=== PATIENT | male | born 1980 | race Caucasian/White ===

== ENCOUNTER 2022-10-21 11:15 | Outpatient (OUT) | payer MEDICARE, MEDICAID, SELFPAY ==
[2022-10-21 12:48] LABS: Alanine Aminotransferase 87 U/L (16-63); Albumin Globulin Ratio 0.9; Albumin Level 3.8 g/dL (3.4-5.0); Alkaline Phosphatase 51 U/L (46-116); Aspartate Amino Transferase 67 U/L (15-37); Bilirubin Direct 0.1 mg/dL (0.0-0.2); Bilirubin Total 0.4 mg/dL (0.2-1.0); Globulin 4.1 g/dL; Total Protein 7.9 g/dL (6.4-8.2)
[2022-10-21 12:56] LABS: Ammonia 46 umol/L (11-32)
== END 2022-10-21 11:16 | disposition home or self-care (01) ==
PROVIDERS: PCP Family Medicine; Visit Provider Family Medicine
DX: R41.82 Altered mental status, unspecified (principal)
CPT/HCPCS: 36415; 80076; 82140

== ENCOUNTER 2022-10-27 20:37 | Emergency (ER) | payer MEDICARE, MEDICAID, SELFPAY ==
[2022-10-27 20:38] VITALS: BP 139/75; PULSE 91; RESP 16; TEMP 36.4; O2SAT 95; BMI 25.4
--- NOTE | 2022-10-27 20:46 | CT_ITS ---
[address] [address] Patient Name: FRANCOIS LOPEZ MRN: [id number] date: 1980 Sex: M Assigned Patient Location: ER Current Patient Location: ER Accession/Order Number: [id number] Exam Date: 10/27/2022 21:00 Report Date: 10/27/2022 21:39 At the request of: DENA JENKINS Procedure: CT facial bones wo con EXAM: CT facial bones wo con TECHNIQUE: Axial CT images were obtained through the facial bones along with sagittal and coronal reformatted images. Dose reduction techniques were achieved by using automated exposure control and/or adjustment of mA and/or kV according to patient size and/or use of iterative reconstruction technique. HISTORY: fall COMPARISON: None. FINDINGS: Fracture: None Orbits: Globes are intact. Extraocular musculature is unremarkable and symmetric. There is no retrobulbar hematoma. Soft tissues: unremarkable. Sinuses: Clear. CT/CT facial bones wo con IMPRESSION: No facial bone fracture Electronically authenticated by: FRANK BARRIGA Date: 10/27/2022 21:39
--- NOTE | 2022-10-27 20:46 | CT_ITS ---
[address] [address] Patient Name: FRANCOIS LOPEZ MRN: [id number] date: 1980 Sex: M Assigned Patient Location: ER Current Patient Location: Accession/Order Number: [id number] Exam Date: 10/27/2022 21:00 Report Date: 10/27/2022 21:41 At the request of: DENA JENKINS Procedure: CT head/brain wo con EXAMINATION: CT head/brain wo con TECHNIQUE: Axial CT images were obtained through the brain. Sagittal and coronal reformatted images were also obtained. Dose reduction techniques were achieved by using automated exposure control and/or adjustment of mA and/or kV according to patient size and/or use of iterative reconstruction technique. HISTORY: Fall COMPARISON: None. FINDINGS: Intracranial Bleed: No evidence for acute intracranial bleed. Intracranial Mass: No evidence for mass lesion. No mass effect or midline shift. Extra-axial spaces: The ventricular system is normal caliber. White/Araiza Matter: No acute cortical infarct. No significant white matter abnormality. Skull/Scalp: No evidence for skull fracture or lesion. Orbits and sinuses: The orbits appear unremarkable. The visualized paranasal sinuses are clear. CT/CT head/brain wo con IMPRESSION: No acute intracranial pathology. Electronically authenticated by: FRANK BARRIGA Date: 10/27/2022 21:41
--- NOTE | 2022-10-27 20:46 | CT_ITS ---
[address] [address] Patient Name: FRANCOIS LOPEZ MRN: [id number] date: 1980 Sex: M Assigned Patient Location: ER Current Patient Location: [facility] Accession/Order Number: [id number] Exam Date: 10/27/2022 21:00 Report Date: 10/27/2022 21:36 At the request of: DENA JENKINS Procedure: CT cervical spine wo con EXAMINATION: CT cervical spine wo con TECHNIQUE: Axial CT images were obtained through the cervical spine. Sagittal and coronal reformatted images were also obtained. Dose reduction techniques were achieved by using automated exposure control and/or adjustment of mA and/or kV according to patient size and/or use of iterative reconstruction technique. HISTORY: fall. COMPARISON: None. FINDINGS: Bones: No fracture Alignment: The alignment is anatomic. No acute subluxation. Arthritic changes: No significant arthritic changes Disc spaces: No gross disc herniation given limitation of CT scan. Soft tissues: No soft tissue mass or large hematoma. Evaluation limited by motion artifact. CT/CT cervical spine wo con IMPRESSION: No acute fracture or subluxation. Electronically authenticated by: FRANK BARRIGA Date: 10/27/2022 21:36
--- NOTE | 2022-10-27 20:48 | ED.FALL1 ---
HPI - Fall General Chief Complaint: Wound/Laceration Stated Complaint: LACERATION FROM FALL Time Seen by Provider: 10/27/22 20:46 History of Present Illness HPI Narrative: patient is a 42-year-old male with severe developmental delay and mental retardation who presents to the emergency department by ambulance from the [facility] center where he is a resident for the evaluation of an injury to the head and face after a fall out of his shower chair just prior to arrival. Patient is not able to provide any aspects of the history. The [facility] where he is a resident reported that the patient fell out of his shower chair and hit his face. He had no loss of consciousness. He is at his mental baseline at this time. Related Data Home Medications Medication Instructions Recorded Confirmed acetaminophen 325 mg capsule 650 mg PO Q4H PRN fever or pain 10/27/22 10/27/22 acetaminophen 650 mg rectal 650 mg LA Q4H PRN fever 10/27/22 10/27/22 suppository alendronate 70 mg tablet 70 mg PO .COMPLEX 10/27/22 10/27/22 atorvastatin 10 mg tablet 10 mg PO DAILY 10/27/22 10/27/22 budesonide 0.5 mg/2 mL suspension 0.5 mg inhalation BID 10/27/22 10/27/22 for nebulization cholecalciferol (vitamin D3) 125 125 mcg PO DAILY 10/27/22 10/27/22 mcg (5,000 unit) capsule clobazam 10 mg tablet 10 mg PO BID 10/27/22 10/27/22 clonazepam 0.25 mg disintegrating 0.25 mg translingual Q12H PRN as 10/27/22 10/27/22 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 diazepam 5 mg-7.5 mg-10 mg rectal 5 mg LA .COMPLEX PRN if 3 or more 10/27/22 10/27/22 kit seizures in 2hrs docusate sodium 100 mg tablet (DOK) 100 mg PO DAILY 10/27/22 10/27/22 felbamate 400 mg tablet 400 mg PO TID 10/27/22 10/27/22 fenofibrate nanocrystallized 145 145 mg PO DAILY 10/27/22 10/27/22 mg tablet fluticasone propionate 50 2 spray intranasal DAILY 10/27/22 10/27/22 mcg/actuation nasal spray,suspension furosemide 20 mg tablet 20 mg PO DAILY 10/27/22 10/27/22 glycopyrrolate 1 mg tablet 1 mg PO BID 10/27/22 10/27/22 guaifenesin 400 mg tablet (Chest 400 mg PO BID 10/27/22 10/27/22 Congestion Relief) ipratropium 0.5 mg-albuterol 3 mg 3 ml inhalation TID 10/27/22 10/27/22 (2.5 mg base)/3 mL nebulization soln lactulose 10 gram/15 mL oral 10 g PO TID 10/27/22 10/27/22 solution levetiracetam 500 mg tablet 500 mg PO DAILY 10/27/22 10/27/22 levetiracetam 750 mg tablet 1,500 mg PO BID 10/27/22 10/27/22 levothyroxine 150 mcg tablet 150 mcg PO DAILY 10/27/22 10/27/22 linaclotide 145 mcg capsule 145 mcg PO DAILY 10/27/22 10/27/22 (Linzess) loratadine 10 mg tablet 10 mg PO DAILY 10/27/22 10/27/22 magnesium oxide 400 mg (241.3 mg 400 mg PO DAILY 10/27/22 10/27/22 magnesium) tablet montelukast 10 mg tablet 10 mg PO DAILY 10/27/22 10/27/22 omeprazole 40 mg capsule,delayed 40 mg PO DAILY 10/27/22 10/27/22 release oxcarbazepine 300 mg tablet 300 mg PO BID 10/27/22 10/27/22 oxcarbazepine 600 mg tablet 600 mg PO BID 10/27/22 10/27/22 polyethylene glycol 3350 17 17 g PO DAILY 10/27/22 10/27/22 gram/dose oral powder rifaximin 550 mg tablet (Xifaxan) 550 mg PO BID 10/27/22 10/27/22 sodium chloride-aloe vera nasal 1 spray intranasal TID PRN dry 10/27/22 10/27/22 spray ([place] Saline Gel nasal spray) nasal passages tamsulosin 0.4 mg capsule 0.4 mg PO DAILY 10/27/22 10/27/22 Allergies Allergy/AdvReac Type Severity Reaction Status Date / Time amoxicillin [From Augmentin] Allergy Verified 10/27/22 20:47 clavulanic acid Allergy Verified 10/27/22 20:47 [From Augmentin] Pertussis Vaccines Allergy Verified 10/27/22 20:47 phenytoin [From Dilantin] Allergy Verified 10/27/22 20:47 promethazine [From Phenergan] Allergy Verified 10/27/22 20:47 Review of Systems ROS Status of ROS unobtainable due to medical condition Exam Narrative Exam Narrative: Gen.: Awake, alert, in no distress Head: Normocephalic, small hematomas noted to the forehead, left cheek. No Jenkins sign or raccoon eyes ENT: Moist mucous membranes, no epistaxis from the nose, patient has a 1 cm C-shaped laceration above the vermilion border in his trimmed mustache. There is no deep laceration into the subcutaneous tissue, no large gap of the laceration. No injury noted on the inner aspect of the lip. No injury noted to the teeth. Neck: patient moves his head without difficulty at the neck Respiratory: No respiratory distress, Extremities: Moves extremities equally, no injuries noted Psych: Normal mood and affect Neuro: significantly developmentally delayed, fights exam Skin: Warm, dry, intact Constitutional Vital Signs, click to edit/add: Last Vital Signs Temp 97.5 F L 10/27/22 20:38 Pulse 91 H 10/27/22 20:38 Resp 16 10/27/22 20:38 BP 139/75 H 10/27/22 20:38 Pulse Ox 95 10/27/22 20:38 O2 Del Method Room Air 10/27/22 20:38 Course Vital Signs Vital signs: Vital Signs Temperature 97.5 F L 10/27/22 20:38 Pulse Rate 91 H 10/27/22 20:38 Respiratory Rate 16 10/27/22 20:38 Blood Pressure 139/75 H 10/27/22 20:38 Pulse Oximetry 95 10/27/22 20:38 Oxygen Delivery Method Room Air 10/27/22 20:38 Temperature 97.5 F L 10/27/22 20:38 Pulse Rate 91 H 10/27/22 20:38 Respiratory Rate 16 10/27/22 20:38 Blood Pressure 139/75 H 10/27/22 20:38 Pulse Oximetry 95 10/27/22 20:38 Oxygen Delivery Method Room Air 10/27/22 20:38 MDM - Fall MDM Narrative Medical decision making narrative: laceration was repaired on arrival to the Emergency Room, the patient did try to pull at the sutured area multiple times so we applied socks to his hands while he was in the Emergency Room, bacitracin applied prior to discharge, patient was sent for CTs of the head, C-spine and facial bones. He is resting comfortably on reevaluation at discharge. We are unable to update his tetanus in the Emergency Room as he is ALLERGIC to pertussis vaccines, he has had previous lacerations from falls and the [facility] is aware that we are unable to update his tetanus in the Emergency Room and he can have a tetanus update per his PCP at the [facility] as needed. CTs of the head, facial bones and C-spine are unremarkable. Patient is discharged home for further evaluation per primary care. Medical Records Attestation: I reviewed the patient's medical records. Imaging Data CT scan - head: Attestation: I have reviewed the pertinent imaging results. Radiologist's impression: Procedure: CT head/brain wo con EXAMINATION: CT head/brain wo con TECHNIQUE: Axial CT images were obtained through the brain. Sagittal and coronal reformatted images were also obtained. Dose reduction techniques were achieved by using automated exposure control and/or adjustment of mA and/or kV according to patient size and/or use of iterative reconstruction technique. HISTORY: Fall COMPARISON: None. FINDINGS: Intracranial Bleed: No evidence for acute intracranial bleed. Intracranial Mass: No evidence for mass lesion. No mass effect or midline shift. Extra-axial spaces: The ventricular system is normal caliber. White/Araiza Matter: No acute cortical infarct. No significant white matter abnormality. Skull/Scalp: No evidence for skull fracture or lesion. Orbits and sinuses: The orbits appear unremarkable. The visualized paranasal sinuses are clear. IMPRESSION: No acute intracranial pathology. Electronically authenticated by: FRANK BARRIGA Date: 10/27/2022 21:41 CT c-spine: Attestation: I have reviewed the pertinent imaging results. Radiologist's impression: Procedure: CT cervical spine wo con EXAMINATION: CT cervical spine wo con TECHNIQUE: Axial CT images were obtained through the cervical spine. Sagittal and coronal reformatted images were also obtained. Dose reduction techniques were achieved by using automated exposure control and/or adjustment of mA and/or kV according to patient size and/or use of iterative reconstruction technique. HISTORY: fall. COMPARISON: None. FINDINGS: Bones: No fracture Alignment: The alignment is anatomic. No acute subluxation. Arthritic changes: No significant arthritic changes Disc spaces: No gross disc herniation given limitation of CT scan. Soft tissues: No soft tissue mass or large hematoma. Evaluation limited by motion artifact. IMPRESSION: No acute fracture or subluxation. CT facial bones: Attestation: I have reviewed the pertinent imaging results. Radiologist's impression: Procedure: CT facial bones wo con EXAM: CT facial bones wo con TECHNIQUE: Axial CT images were obtained through the facial bones along with sagittal and coronal reformatted images. Dose reduction techniques were achieved by using automated exposure control and/or adjustment of mA and/or kV according to patient size and/or use of iterative reconstruction technique. HISTORY: fall COMPARISON: None. FINDINGS: Fracture: None Orbits: Globes are intact. Extraocular musculature is unremarkable and symmetric. There is no retrobulbar hematoma. Soft tissues: unremarkable. Sinuses: Clear. IMPRESSION: No facial bone fracture Electronically authenticated by: FRANK BARRIGA Date: 10/27/2022 21:39 Discharge Plan Discharge Chief Complaint: Wound/Laceration Clinical Impression: Laceration of lip, Contusion of face, Head injury Patient Disposition: Home, Self-Care Time of Disposition Decision: 21:46 Condition: Good Prescriptions / Home Meds: No Action alendronate 70 mg tablet 70 mg PO .COMPLEX Rx Instructions: 70 mg orally Every ; atorvastatin 10 mg tablet 10 mg PO DAILY budesonide 0.5 mg/2 mL suspension for nebulization 0.5 mg inhalation BID clobazam 10 mg tablet 10 mg PO BID docusate sodium [DOK] 100 mg tablet 100 mg PO DAILY felbamate 400 mg tablet 400 mg PO TID fenofibrate nanocrystallized 145 mg tablet 145 mg PO DAILY fluticasone propionate 50 mcg/actuation spray,suspension 2 spray INTRANASAL DAILY furosemide 20 mg tablet 20 mg PO DAILY glycopyrrolate 1 mg tablet 1 mg PO BID guaifenesin [Chest Congestion Relief] 400 mg tablet 400 mg PO BID ipratropium-albuterol 0.5 mg-3 mg(2.5 mg base)/3 mL solution for nebulization 3 ml INHALATION TID lactulose 10 gram/15 mL solution 10 g PO TID levetiracetam 500 mg tablet 500 mg PO DAILY Rx Instructions: take one tablet by mouth daily at bedtime with 750mg tablets to equal 2000mg levetiracetam 750 mg tablet 1,500 mg PO BID levothyroxine 150 mcg tablet 150 mcg PO DAILY Linzess 145 mcg capsule 145 mcg PO DAILY loratadine 10 mg tablet 10 mg PO DAILY magnesium oxide 400 mg (241.3 mg magnesium) tablet 400 mg PO DAILY montelukast 10 mg tablet 10 mg PO DAILY omeprazole 40 mg capsule,delayed release(DR/EC) 40 mg PO DAILY oxcarbazepine 300 mg tablet 300 mg PO BID oxcarbazepine 600 mg tablet 600 mg PO BID polyethylene glycol 3350 17 gram/dose powder 17 g PO DAILY tamsulosin 0.4 mg capsule 0.4 mg PO DAILY cholecalciferol (vitamin D3) 125 mcg (5,000 unit) capsule 125 mcg PO DAILY Xifaxan 550 mg tablet 550 mg PO BID [place] Saline Gel [place],Non-Aerosol 1 spray intranasal TID PRN (Reason: dry nasal passages) acetaminophen 325 mg capsule 650 mg PO Q4H PRN (Reason: fever or pain) acetaminophen 650 mg suppository 650 mg LA Q4H PRN (Reason: fever) clonazepam 0.25 mg tablet,disintegrating 0.25 mg translingual Q12H PRN (Reason: as needed for cluster of 5 seizures) diazepam 5-7.5-10 mg kit 5 mg LA .COMPLEX PRN (Reason: if 3 or more seizures in 2hrs) Rx Instructions: 5 mg rectally may repeat in 2hrs as needed PRN; Instructions: Head Injury (ED), Care For Your Absorbable Stitches (ED), Facial Contusion (ED) Stand Alone Forms: Portal Instructions Referrals: ERIKA VENTURA DO [Primary Care Provider] - 1 week Discharge Date/Time: 07/11/23 22:11 Procedures ED Procedure Instructions Procedures Procedures: Laceration repair: Done under sterile conditions. The use of Shur-Clens prep the area. The wound was irrigated copiously with normal saline. The wound was explored there was no evidence of foreign material. The laceration was approximated with 5-0 fast absorbing suture, one suture was placed to tack the laceration together, there is no deep laceration into the subcutaneous tissue noted. Patient tolerated the procedure well. The patient was neurovascularly intact post. the patient had bacitracin applied to the laceration
--- NOTE | 2022-10-27 20:52 | PC.NURSE ---
laceration cleansed at bedside and 1 suture placed to top lip by PA. socks placed on bilat hands d/t pt trying to pull at new suture and TV turned on for distracting. goose egg/bruise to top front of forehead and under left eye, Pt to go to CT
[2022-10-27] MEDS: BACITRACIN 0.9 GM PACKET 1 PACKET TOPICAL (22:08)
== END 2022-10-27 22:11 | disposition home or self-care (01) ==
PROVIDERS: Emergency Provider Emergency Medicine; PCP Family Medicine
DX: S01.511A Laceration without foreign body of lip, initial encounter (principal); S00.83XA Contusion of other part of head, initial encounter; S09.90XA Unspecified injury of head, initial encounter; W18.2XXA Fall in (into) shower or empty bathtub, initial encounter; F79 Unspecified intellectual disabilities; Z79.899 Other long term (current) drug therapy; Z79.890 Hormone replacement therapy
CPT/HCPCS: 12011; 70450; 70486; 72125; 99284

== ENCOUNTER 2022-11-26 09:04 | Outpatient (OUT) | payer MEDICARE, MEDICAID, SELFPAY ==
--- NOTE | 2022-11-26 09:15 | US_ITS ---
[address] [address] Patient Name: FRANCOIS LOPEZ MRN: [id number] date: 1980 Sex: M Assigned Patient Location: Current Patient Location: US Accession/Order Number: [id number] Exam Date: 11/26/2022 09:30 Report Date: 11/26/2022 14:03 At the request of: ERIKA VENTURA Procedure: US scrotum SCROTAL ULTRASOUND: 11/26/2022 10:58 AM PDT HISTORY: Testicle retraction, urinary incontinence. TECHNIQUE: Real-time sonography through the scrotum were performed. Color and spectral Doppler waveform analysis were used to evaluate vascularity of scrotal contents. Arterial blood inflow and venous blood outflow were evaluated. COMPARISON: Scrotal ultrasound 11/13/[address] abdomen/pelvis 09/22/2021. FINDINGS: RIGHT SCROTUM: RIGHT TESTICLE: The right testicle appears to be located within the right scrotum. Echogenicity: Homogeneous echotexture. No focal solid lesion. Measurements: 3.3 x 1.8 x 1.9 cm. Volume: 5.8 mL. Size: Normal. Hydrocele: Small. Varicocele: No varicocele. Testicular vascular exam: Color Doppler and pulse Doppler exam demonstrates normal arterial blood inflow and venous outflow waveforms. Symmetric with opposite testis. RIGHT EPIDIDYMIS: Normal in size and position. Color Doppler is normal. Small testicular appendage present. LEFT SCROTUM: LEFT TESTICLE: Echogenicity: Homogeneous echotexture. No focal solid lesion. Measurements: 2.5 x 1.3 x 2.3 cm. Volume: 4 mL. Size: Normal. Hydrocele: No hydrocele. Varicocele: No varicocele. Testicular vascular exam: Color Doppler and pulse Doppler exam demonstrates normal arterial blood inflow and venous outflow waveforms. Symmetric with opposite testis. LEFT EPIDIDYMIS: Normal in size and position. Color Doppler is normal. SCROTAL WALL: Normal. US/US scrotum IMPRESSION: 1. The right testicle appears to be located in the right scrotum. There is a small right-sided hydrocele. 2. The left testicle is within normal limits. Electronically authenticated by: BRITTANIE MELLO Date: 11/26/2022 14:03
== END 2022-11-26 09:05 | disposition home or self-care (01) ==
LOC: US 09:04
PROVIDERS: PCP Family Medicine; Visit Provider Family Medicine
DX: R32 Unspecified urinary incontinence (principal); Q55.22 Retractile testis
CPT/HCPCS: 76870

== ENCOUNTER 2022-12-18 07:23 | Outpatient (OUT) | payer MEDICARE, MEDICAID, SELFPAY ==
[2022-12-18 07:59] LABS: Ammonia 20 umol/L (11-32)
[2022-12-18 08:58] LABS: Alanine Aminotransferase 56 U/L (16-63); Albumin Globulin Ratio 0.9; Albumin Level 3.5 g/dL (3.4-5.0); Alkaline Phosphatase 54 U/L (46-116); Aspartate Amino Transferase 44 U/L (15-37); Bilirubin Direct 0.1 mg/dL (0.0-0.2); Bilirubin Total 0.4 mg/dL (0.2-1.0); Globulin 3.7 g/dL; Total Protein 7.2 g/dL (6.4-8.2)
== END 2022-12-18 07:24 | disposition home or self-care (01) ==
LOC: LAB 07:23
PROVIDERS: PCP Family Medicine; Visit Provider Family Medicine
DX: G40.909 Epilepsy, unspecified, not intractable, without status epilepticus (principal); Z79.899 Other long term (current) drug therapy; K76.82 Hepatic encephalopathy
CPT/HCPCS: 36415; 80076; 82140

== ENCOUNTER 2023-02-11 04:07 | Inpatient (IN) | payer MEDICARE, MEDICAID, SELFPAY ==
[2023-02-11] VITALS (27 sets, daily range): BP systolic 86–132; BP diastolic 51–69; PULSE 90–105; RESP 18–27; TEMP 36.5–38.6; O2SAT 87–99; BMI 22.2
[2023-02-11] MEDS: 0.9 % SODIUM CHLORIDE 1,000 ML 1000 ML IV (04:10)
--- NOTE | 2023-02-11 04:17 | ECG_ITS ---
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
--- NOTE | 2023-02-11 04:17 | XR_ITS ---
The [address] [address] Patient Name: FRANCOIS LOPEZ MRN: [id number] date: 1980 Sex: M Assigned Patient Location: ER Current Patient Location: ER Accession/Order Number: [id number] Exam Date: 02/11/2023 05:00 Report Date: 02/11/2023 06:13 At the request of: DREW MARKER Procedure: XR chest 1V EXAM: XR chest 1V HISTORY: SOB COMPARISON: Chest radiograph dated 08/04/2022. TECHNIQUE: One view of the chest was obtained. FINDINGS: A left chest neurostimulator device is noted with the leads extending off the cranial aspect of the study. The cardiac silhouette is stable in size. There are hypoventilatory changes. There are airspace opacities in the mid to lower left lung and at the right lung base. There is no significant pneumothorax or pleural effusion. No acute osseous abnormality is seen. XR/XR chest 1V IMPRESSION: 1. Airspace opacities in the mid to lower left lung and at the right lung base could represent atelectasis, aspiration changes, and/or pneumonia. Electronically authenticated by: Elliott HUNTER Date: 02/11/2023 06:13
--- NOTE | 2023-02-11 04:32 | ED.GENADUL1 ---
HPI - General Adult General Chief complaint: Seizure Stated complaint: OTHER Time Seen by Provider: 02/11/23 04:17 Source: caregiver and other Source information: Report was called from [facility] nurse as well as EMS report Mode of arrival: ambulance Limitations: no limitations and physical limitation Limitations comment: Hx MRDD with severe intellectual disability History of Present Illness HPI narrative: This 43-year-old male with a history of MR DD and seizure disorder is brought to the emergency department from [facility] for evaluation of a fever and several seizures since last night. The RN who covers the facility gave report to the nurses in this emergency department stating that he had several seizures and was found to have a fever. She did a [facility] test at the [facility] that was positive. She stated that his pulse ox was in the 80s. He does not typically have any oxygen requirements. He was given rectal tylenol prior to arrival. There was no noted vomiting or diarrhea reported by the [facility] RN. Related Data Home Medications Medication Instructions Recorded Confirmed acetaminophen 325 mg capsule 650 mg PO Q4H PRN fever or pain 10/27/22 02/11/23 acetaminophen 650 mg rectal 650 mg WI Q4H PRN fever 10/27/22 02/11/23 suppository alendronate 70 mg tablet 70 mg PO .COMPLEX 10/27/22 02/11/23 atorvastatin 10 mg tablet 10 mg PO DAILY 10/27/22 02/11/23 budesonide 0.5 mg/2 mL suspension 0.5 mg inhalation BID 10/27/22 02/11/23 for nebulization cholecalciferol (vitamin D3) 125 125 mcg PO DAILY 10/27/22 02/11/23 mcg (5,000 unit) capsule clobazam 10 mg tablet 10 mg PO BID 10/27/22 02/11/23 clonazepam 0.25 mg disintegrating 0.25 mg translingual Q12H PRN as 10/27/22 02/11/23 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 diazepam 5 mg-7.5 mg-10 mg rectal 5 mg WI .COMPLEX PRN if 3 or more 10/27/22 02/11/23 kit seizures in 2hrs docusate sodium 100 mg tablet (DOK) 100 mg PO DAILY 10/27/22 02/11/23 felbamate 400 mg tablet 400 mg PO TID 10/27/22 02/11/23 fenofibrate nanocrystallized 145 145 mg PO DAILY 10/27/22 02/11/23 mg tablet fluticasone propionate 50 2 spray intranasal DAILY 10/27/22 02/11/23 mcg/actuation nasal spray,suspension furosemide 20 mg tablet 20 mg PO DAILY 10/27/22 02/11/23 glycopyrrolate 1 mg tablet 1 mg PO BID 10/27/22 02/11/23 guaifenesin 400 mg tablet (Chest 400 mg PO BID 10/27/22 02/11/23 Congestion Relief) ipratropium 0.5 mg-albuterol 3 mg 3 ml inhalation TID 10/27/22 02/11/23 (2.5 mg base)/3 mL nebulization soln lactulose 10 gram/15 mL oral 10 g PO TID 10/27/22 02/11/23 solution levetiracetam 500 mg tablet 500 mg PO DAILY 10/27/22 02/11/23 levetiracetam 750 mg tablet 1,500 mg PO BID 10/27/22 02/11/23 levothyroxine 150 mcg tablet 150 mcg PO DAILY 10/27/22 02/11/23 linaclotide 145 mcg capsule 145 mcg PO DAILY 10/27/22 02/11/23 (Linzess) loratadine 10 mg tablet 10 mg PO DAILY 10/27/22 02/11/23 magnesium oxide 400 mg (241.3 mg 400 mg PO DAILY 10/27/22 02/11/23 magnesium) tablet montelukast 10 mg tablet 10 mg PO DAILY 10/27/22 02/11/23 omeprazole 40 mg capsule,delayed 40 mg PO DAILY 10/27/22 02/11/23 release oxcarbazepine 300 mg tablet 300 mg PO BID 10/27/22 02/11/23 oxcarbazepine 600 mg tablet 600 mg PO BID 10/27/22 02/11/23 polyethylene glycol 3350 17 17 g PO DAILY 10/27/22 02/11/23 gram/dose oral powder rifaximin 550 mg tablet (Xifaxan) 550 mg PO BID 10/27/22 02/11/23 sodium chloride-aloe vera nasal 1 spray intranasal TID PRN dry 10/27/22 02/11/23 spray ([place] Saline Gel nasal spray) nasal passages tamsulosin 0.4 mg capsule 0.4 mg PO DAILY 10/27/22 02/11/23 Allergies Allergy/AdvReac Type Severity Reaction Status Date / Time amoxicillin [From Augmentin] Allergy Verified 10/27/22 20:47 clavulanic acid Allergy Verified 10/27/22 20:47 [From Augmentin] Pertussis Vaccines Allergy Verified 10/27/22 20:47 phenytoin [From Dilantin] Allergy Verified 10/27/22 20:47 promethazine [From Phenergan] Allergy Verified 10/27/22 20:47 Review of Systems ROS Status of ROS 10 or more systems reviewed and unremarkable except as noted in history and below [facility] Social History Smoking status: Never smoker Exam Narrative Exam Narrative: Nurses note and vital signs reviewed; He is febrile with a temperature of 101, tachycardic with pulse of 105, blood pressure is normal at 102/54, pulse ox was 99 percent on 2 L nasal cannula General: Somnolent, chronically ill-appearing male, he is arousable to verbal stimuli, no respiratory distress, no active vomiting Skin: Warm, dry, no pallor noted. There is no rash noted. Head: Normocephalic, atraumatic Eye: Normal conjunctiva, no drainage, Pupils are equal and reactive Ears, Nose, Mouth, and Throat: oral mucosa is moist. Nares patent. No visible tongue contusion or laceration Cardiovascular: Regular Rate and Rhythm S1S2, tachycardia at 105 bpm on arrival, no murmurs, rubs or gallops appreciated Respiratory: Patient is in no distress, coarse and transmitted breath sounds appreciated, no wheezing or accessory muscle use noted Back: non-tender, no CVA tenderness bilaterally to percussion. GI: Normal bowel sounds, no tenderness to palpation, no masses appreciated. No rebound, guarding, or rigidity noted. Musculoskeletal: No bony defomity noted, generalized muscle wasting noted Neurological: no facial droop, arouses to verbal and tactile stimuli Constitutional Vital Signs, click to edit/add: Last Vital Signs Temp 101 F H 02/11/23 04:06 Pulse 98 H 02/11/23 04:50 Resp 19 02/11/23 04:50 BP 102/54 02/11/23 04:09 Pulse Ox 99 02/11/23 04:50 O2 Del Method Nasal Cannula 02/11/23 04:47 O2 Flow Rate 2 02/11/23 04:47 Course Vital Signs Vital signs: Vital Signs Temperature 101 F H 02/11/23 04:06 Pulse Rate 105 H 02/11/23 04:06 Respiratory Rate 18 02/11/23 04:06 Blood Pressure 102/54 02/11/23 04:06 Pulse Oximetry 95 02/11/23 04:06 Oxygen Delivery Method Room Air 02/11/23 04:06 Temperature 101 F H 02/11/23 04:06 Pulse Rate 98 H 02/11/23 04:50 Respiratory Rate 19 02/11/23 04:50 Blood Pressure 102/54 02/11/23 04:09 Pulse Oximetry 99 02/11/23 04:50 Oxygen Delivery Method Nasal Cannula 02/11/23 04:47 Oxygen Delivery Flow Rate 2 02/11/23 04:47 Medical Decision Making MDM Narrative Medical decision making narrative: This 43-year-old male from a [facility] who has a history of MRDD and seizure disorder as well as multiple other medical diagnoses is transferred from the [facility] to the emergency department for evaluation of fever, 3 seizures last night and Covid positivity. According to the nurse who called report his pulse ox is in the 80s. Upon EMS arrival an IV was established and he was placed on supplemental oxygen with improvement in his oxygenation. I reviewed his medical records, he is on Keppra for his seizures. According to the report he had 3 seizures prior to arrival. Upon arrival he was somnolent but arousable. He was febrile and at that time was not hypoxic however he was receiving supplemental oxygen. He received IV fluids, Toradol and 1 g of Keppra. Routine labs are reviewed. He has a white count of 5.4 and hemoglobin of 10.9. A letter electrolytes are normal with the exception of a potassium of 3.2. He has mild elevation in his liver function tests. EKG done upon arrival was sinus rhythm at 97 beats for minute with no acute changes. He has normal lactic acid of 1.6. Covid testing was positive. He was maintained on supplemental oxygen emergency department and has remained hemodynamically stable. The case was discussed with Dr. Song and he is accepted for admission to [facility]. Medical Records Medical records reviewed: Yes I reviewed the patient's medical records Lab Data Lab results reviewed: Yes I reviewed the patient's lab results Labs: Lab Results 02/11/23 02/11/23 Range/Units 05:00 05:05 WBC 5.4 (4.0-11.0) 10^3/uL RBC 3.43 L (4.70-6.10) 10^6/uL Hgb 10.9 L (14.0-18.0) g/dL Hct 33.0 L (42.0-54.0) % MCV 96.2 H (80.0-94.0) fL MCH 31.8 (25.9-34.0) pg MCHC 33.0 (29.9-35.2) g/dL RDW 13.2 (11.0-15.0) % Plt Count 259 (150-450) 10^3/uL MPV 10.3 (9.5-13.5) fL Neut % (Auto) 79.1 H (43.0-75.0) % Lymph % (Auto) 9.0 L (20.5-60.0) % [place]ountain % (Auto) 10.9 (1.7-12.0) % Eos % (Auto) 0.2 L (0.9-7.0) % Baso % (Auto) 0.6 (0.2-2.0) % Neut # (Auto) 4.3 (1.4-6.5) 10^3/uL Lymph # (Auto) 0.5 L (1.2-3.8) 10^3/uL Fountain # (Auto) 0.6 (0.3-0.8) 10^3/uL Eos # (Auto) 0.0 (0.0-0.7) 10^3/uL Baso # (Auto) 0.0 (0.0-0.1) 10^3/uL Abs Immat Gran (auto) 0.01 (0.00-0.03) 10^3/uL Imm/Tot Granulo (auto) 0.2 (0.0-0.5) % Sodium 141 (136-145) mmol/L Potassium 3.2 L (3.5-5.1) mmol/L Chloride 105 (98-107) mmol/L Carbon Dioxide 28.8 (21.0-32.0) mmol/L Anion Gap 10.4 BUN 13.0 (7.0-18.0) mg/dL Creatinine 0.75 (0.70-1.30) mg/dL Est GFR ( Amer) >60 (>=60) Est GFR (Non-Af Amer) >60 (>=60) BUN/Creatinine Ratio 17.3 Glucose 117 H (74-106) mg/dL Lactate 1.6 (0.4-2.0) mmol/L Calcium 8.4 L (8.5-10.1) mg/dL Total Bilirubin 0.4 (0.2-1.0) mg/dL AST 126 H (15-37) U/L ALT 83 H (16-63) U/L Alkaline Phosphatase 38 L (46-116) U/L Total Protein 6.3 L (6.4-8.2) g/dL Albumin 2.9 L (3.4-5.0) g/dL Globulin 3.4 g/dL Albumin/Globulin Ratio 0.9 SARS-CoV-2 (PCR) Positive A (NEGATIVE) ECG Data Attestation: I personally reviewed and interpreted this ECG as follows: (Normal sinus rhythm at 97 beats for minute, normal axis, nonspecific ST changes, no acute ST segment elevation or T-wave inversion) Discharge Plan Discharge Chief Complaint: Seizure Clinical Impression: Epileptic seizure Patient Disposition: Admitted as Observation Time of Disposition Decision: 06:47 Condition: Fair Prescriptions / Home Meds: No Action alendronate 70 mg tablet 70 mg PO .COMPLEX Rx Instructions: 70 mg orally Every ; atorvastatin 10 mg tablet 10 mg PO DAILY budesonide 0.5 mg/2 mL suspension for nebulization 0.5 mg inhalation BID clobazam 10 mg tablet 10 mg PO BID docusate sodium [DOK] 100 mg tablet 100 mg PO DAILY felbamate 400 mg tablet 400 mg PO TID fenofibrate nanocrystallized 145 mg tablet 145 mg PO DAILY fluticasone propionate 50 mcg/actuation spray,suspension 2 spray INTRANASAL DAILY furosemide 20 mg tablet 20 mg PO DAILY glycopyrrolate 1 mg tablet 1 mg PO BID guaifenesin [Chest Congestion Relief] 400 mg tablet 400 mg PO BID ipratropium-albuterol 0.5 mg-3 mg(2.5 mg base)/3 mL solution for nebulization 3 ml INHALATION TID lactulose 10 gram/15 mL solution 10 g PO TID levetiracetam 500 mg tablet 500 mg PO DAILY Rx Instructions: take one tablet by mouth daily at bedtime with 750mg tablets to equal 2000mg levetiracetam 750 mg tablet 1,500 mg PO BID levothyroxine 150 mcg tablet 150 mcg PO DAILY Linzess 145 mcg capsule 145 mcg PO DAILY loratadine 10 mg tablet 10 mg PO DAILY magnesium oxide 400 mg (241.3 mg magnesium) tablet 400 mg PO DAILY montelukast 10 mg tablet 10 mg PO DAILY omeprazole 40 mg capsule,delayed release(DR/EC) 40 mg PO DAILY oxcarbazepine 300 mg tablet 300 mg PO BID oxcarbazepine 600 mg tablet 600 mg PO BID polyethylene glycol 3350 17 gram/dose powder 17 g PO DAILY tamsulosin 0.4 mg capsule 0.4 mg PO DAILY cholecalciferol (vitamin D3) 125 mcg (5,000 unit) capsule 125 mcg PO DAILY Xifaxan 550 mg tablet 550 mg PO BID [place] Saline Gel [place],Non-Aerosol 1 spray intranasal TID PRN (Reason: dry nasal passages) acetaminophen 325 mg capsule 650 mg PO Q4H PRN (Reason: fever or pain) acetaminophen 650 mg suppository 650 mg WI Q4H PRN (Reason: fever) clonazepam 0.25 mg tablet,disintegrating 0.25 mg translingual Q12H PRN (Reason: as needed for cluster of 5 seizures) diazepam 5-7.5-10 mg kit 5 mg WI .COMPLEX PRN (Reason: if 3 or more seizures in 2hrs) Rx Instructions: 5 mg rectally may repeat in 2hrs as needed PRN;
--- NOTE | 2023-02-11 04:38 | PC.NURSE ---
2 L O2 NC initiated per physician verbal order. Oxygen saturation 99% at this time.
--- NOTE | 2023-02-11 04:52 | PC.NURSE ---
Pt presents to ER for fever and increased seizure activity from [facility] Pt report was called from the nurse at [facility] Per [facility] nurse pt had multiple seizures between 10pm and 2am. At 3am staff called in the nurse who assessed pt and found him to be febrile (>101), congested and hypoxic Pt was brought in by EMS with a 20g in the left wrist, fluids running at this time Pt has a history of seizure disorders as well as severe intellectual disability. Pt is not continent, a condom cath was applied to attempt to collect urine sample at this time Pt tyically lively and speaking to staff Pt at this time is hot to the touch, sleeping without arousal, and not speaking to us when aroused
[2023-02-11] MEDS: LEVETIRACETAM 1,000 MG in 0.9 % SODIUM CHLORIDE 100 ML 440 MG IV (05:07)
[2023-02-11] MEDS: KETOROLAC TROMETHAMINE 30 MG/ML VIAL 15 MG IVP (05:08)
[2023-02-11 05:28] LABS: Basophils Percent Auto 0.6 % (0.2-2.0); Eosinophils Percent Auto 0.2 % (0.9-7.0); Hemoglobin 10.9 g/dL (14.0-18.0); Immature Granulocytes Abs Auto 0.01 10^3/uL (0.00-0.03); Immature Granulocytes Pct Auto 0.2 % (0.0-0.5); Lymphocytes Absolute Auto 0.5 10^3/uL (1.2-3.8); Mean Corpuscular Hemoglobin 31.8 pg (25.9-34.0); Mean Corpuscular Volume 96.2 fL (80.0-94.0); Mean Platelet Volume 10.3 fL (9.5-13.5); Monocytes Absolute Auto 0.6 10^3/uL (0.3-0.8); Monocytes Percent Auto 10.9 % (1.7-12.0); Neutrophils Absolute Auto 4.3 10^3/uL (1.4-6.5); Neutrophils Percent Auto 79.1 % (43.0-75.0); Platelet Count 259 10^3/uL (150-450); Red Blood Count 3.43 10^6/uL (4.70-6.10); Red Cell Distribution Width 13.2 % (11.0-15.0); White Blood Count 5.4 10^3/uL (4.0-11.0)
[2023-02-11 05:43] LABS: Alanine Aminotransferase 83 U/L (16-63); Albumin Globulin Ratio 0.9; Albumin Level 2.9 g/dL (3.4-5.0); Alkaline Phosphatase 38 U/L (46-116); Anion Gap 10.4; Aspartate Amino Transferase 126 U/L (15-37); BUN Creatinine Ratio 17.3; Bilirubin Total 0.4 mg/dL (0.2-1.0); Calcium 8.4 mg/dL (8.5-10.1); Carbon Dioxide 28.8 mmol/L (21.0-32.0); Chloride 105 mmol/L (98-107); Estimated GFR (African America >60 (>=60); Estimated GFR (Non-African Ame >60 (>=60); Globulin 3.4 g/dL; Glucose 117 mg/dL (74-106); Potassium 3.2 mmol/L (3.5-5.1); Sodium 141 mmol/L (136-145); Total Protein 6.3 g/dL (6.4-8.2)
[2023-02-11 05:45] LABS: SARS-CoV-2 Ag POSITIVE (NEGATIVE)
[2023-02-11 05:46] LABS: Lactate/Lactic Acid 1.6 mmol/L (0.4-2.0)
[2023-02-11] MEDS: 0.9 % SODIUM CHLORIDE 1,000 ML 125 ML IV (06:08)
--- NOTE | 2023-02-11 08:26 | PC.NURSE ---
Admission process difficult due to pt being non verbal MRDD pt...unable to answer any questions.
--- NOTE | 2023-02-11 08:33 | CM.NOTE ---
Rounding with Dr. Song. Nurse Lucila at bedside checking patient in. Patient is from [facility]. Continue to follow for any anticipated discharge needs. Pt. recently arrived to room from the ER.
[2023-02-11] MEDS: ENOXAPARIN SODIUM 40 MG/0.4 ML SYRINGE SUBQ (09:33)
[2023-02-11] MEDS: DEXAMETHASONE SOD PHOS 4 MG/ML VIAL IV (09:34)
[2023-02-11] MEDS: FLUTICASONE PROPIONATE 50 MCG NASAL SPRAY 2 SPRAY NS (09:34)
[2023-02-11] MEDS: CEFTRIAXONE 1,000 MG in 0.9 % SODIUM CHLORIDE 50 ML 100 MG IV (10:00)
[2023-02-11] MEDS: DOXYCYCLINE HYCLATE 100 MG in 0.9 % SODIUM CHLORIDE 100 ML IV ×2 (10:52→23:03)
--- NOTE | 2023-02-11 11:54 | P.HP_ITS ---
Pt seen and evaluated once up on floor this am Agree with documentation from [facility] unchanged form [facility] H&P: HPI History of Present Illness Chief complaint: Increased seizure activity/fever/COVID+ Narrative: Date/Time of exam: 02/11/23 8939 This is a 43-year-old male patient with a complicated past medical history as noted below including seizure disorder, severe intellectual disability, spastic quadriparesis, Wall with hepatic encephalopathy, among others; who was brought to the ED from his [place] [facility] facility due to increased and recurrent seizures with positive COVID-19 status. Work-up in the ED revealed left mid and lower pneumonia on chest x-ray, hypoxia (87% RA), fever (101), hypotension (86/51), hypokalemia (3.2), and decreased responsiveness. Lactic acid was within normal limits (1.6), his liver enzymes are chronically elevated and within his baseline range. As the patient had increased seizure activity at home he was given an IV loading dose of Keppra 1000 mg. He was admitted to the hospitalist service under Dr. Song for sepsis, COVID-19 infection with pneumonia, and increased seizure activity in a febrile pt w/ chronic seizures. At the time of my exam the patient is resting in bed quietly. Nursing is having difficulty keeping his oxygen in place as he keeps removing it. The patient is mostly nonverbal but does answer some questions appropriately with no , but no other verbal response. He follows minimal commands appropriately, but not all. He is mildly combative with staff and does not open his eyes to command. He appears somewhat more lethargic than baseline. He is currently afebrile after receiving Tylenol in the ED. Review of Systems ROS Status of ROS unobtainable due to mental status (Non-verbal d/t intellectual disability) [facility] Medical History (Updated 02/11/23 @ 15:06 by Eloisa Huber NP) ADHD ?F90.9 - Attention-deficit hyperactivity disorder, unspecified type (ICD-10) BPH (benign prostatic hyperplasia) ?N40.0 - Benign prostatic hyperplasia without lower urinary tract symptoms (ICD-10) Contusion of face ?S00.83XA - Contusion of other part of head, initial encounter (ICD-10) COPD (chronic obstructive pulmonary disease) ?J44.9 - Chronic obstructive pulmonary disease, unspecified (ICD-10) Excessive salivation ?K11.7 - Disturbances of salivary secretion (ICD-10) GERD (gastroesophageal reflux disease) ?K21.9 - Gastro-esophageal reflux disease without esophagitis (ICD-10) Head injury ?S09.90XA - Unspecified injury of head, initial encounter (ICD-10) Hepatic encephalopathy ?K76.82 - Hepatic encephalopathy (ICD-10) Hyperlipidemia ?E78.5 - Hyperlipidemia, unspecified (ICD-10) Hypothyroidism ?E03.9 - Hypothyroidism, unspecified (ICD-10) Intellectual disability ?F79 - Unspecified intellectual disabilities (ICD-10) Laceration of lip ?S01.511A - Laceration without foreign body of lip, initial encounter (ICD-1 0) Osteoporosis ?M81.0 - Age-related osteoporosis without current pathological fracture (ICD- 10) Small intestinal bacterial overgrowth ?K63.8219 - Small intestinal bacterial overgrowth, unspecified (ICD-10) 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) 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 - Quadriplegia, unspecified (ICD-10) 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 (ICD-10) Social History Smoking status: Never smoker Meds Home Medications and Allergies Home Medications Medication Instructions Recorded Confirmed Type acetaminophen 325 mg capsule 650 mg PO Q4H PRN fever or pain 10/27/22 02/11/23 History acetaminophen 650 mg rectal 650 mg WA Q4H PRN fever 10/27/22 02/11/23 History suppository alendronate 70 mg tablet 70 mg PO .COMPLEX 10/27/22 02/11/23 History atorvastatin 10 mg tablet 10 mg PO DAILY 10/27/22 02/11/23 History budesonide 0.5 mg/2 mL suspension 0.5 mg inhalation BID 10/27/22 02/11/23 History for nebulization cholecalciferol (vitamin D3) 125 125 mcg PO DAILY 10/27/22 02/11/23 History mcg (5,000 unit) capsule clobazam 10 mg tablet 10 mg PO BID 10/27/22 02/11/23 History clonazepam 0.25 mg disintegrating 0.25 mg translingual Q12H PRN as 10/27/22 02/11/23 History 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 diazepam 5 mg-7.5 mg-10 mg rectal 5 mg WA .COMPLEX PRN if 3 or more 10/27/22 02/11/23 History kit seizures in 2hrs docusate sodium 100 mg tablet (DOK) 200 mg PO DAILY 10/27/22 02/11/23 History felbamate 400 mg tablet 400 mg PO TID 10/27/22 02/11/23 History fenofibrate nanocrystallized 145 145 mg PO DAILY 10/27/22 02/11/23 History mg tablet fluticasone propionate 50 2 spray intranasal DAILY 10/27/22 02/11/23 History mcg/actuation nasal spray,suspension furosemide 20 mg tablet 20 mg PO DAILY 10/27/22 02/11/23 History glycopyrrolate 1 mg tablet 1 mg PO BID 10/27/22 02/11/23 History guaifenesin 400 mg tablet (Chest 400 mg PO BID 10/27/22 02/11/23 History Congestion Relief) ipratropium 0.5 mg-albuterol 3 mg 3 ml inhalation TID 10/27/22 02/11/23 History (2.5 mg base)/3 mL nebulization soln lactulose 10 gram/15 mL oral 60 g PO TID 10/27/22 02/11/23 History solution levetiracetam 500 mg tablet 500 mg PO DAILY 10/27/22 02/11/23 History levetiracetam 750 mg tablet 1,500 mg PO BID 10/27/22 02/11/23 History levothyroxine 150 mcg tablet 150 mcg PO DAILY 10/27/22 02/11/23 History linaclotide 145 mcg capsule 145 mcg PO DAILY 10/27/22 02/11/23 History (Linzess) loratadine 10 mg tablet 10 mg PO DAILY 10/27/22 02/11/23 History magnesium oxide 400 mg (241.3 mg 400 mg PO DAILY 10/27/22 02/11/23 History magnesium) tablet montelukast 10 mg tablet 10 mg PO DAILY 10/27/22 02/11/23 History omeprazole 40 mg capsule,delayed 40 mg PO DAILY 10/27/22 02/11/23 History release oxcarbazepine 300 mg tablet 300 mg PO BID 10/27/22 02/11/23 History oxcarbazepine 600 mg tablet 600 mg PO BID 10/27/22 02/11/23 History polyethylene glycol 3350 17 17 g PO DAILY 10/27/22 02/11/23 History gram/dose oral powder rifaximin 550 mg tablet (Xifaxan) 550 mg PO BID 10/27/22 02/11/23 History sodium chloride-aloe vera nasal 2 spray intranasal TID dry nasal 10/27/22 02/11/23 History spray ([place] Saline Gel nasal spray) passages tamsulosin 0.4 mg capsule 0.4 mg PO DAILY 10/27/22 02/11/23 History albuterol sulfate 2.5 mg/3 mL 2.5 mg inhalation Q6H PRN 02/11/23 02/11/23 History (0.083 %) solution for nebulization shortness of breath artificial tears with lanolin eye 1 applic ophthalmic (eye) TID PRN 02/11/23 02/11/23 History ointment (Ultra Fresh PM eye dry eye(s) ointment) erythromycin 5 mg/gram (0.5 %) eye 1 applic ophthalmic (eye) TID PRN 02/11/23 02/11/23 History ointment eye irritation linaclotide 145 mcg capsule 145 mcg PO DAILY 02/11/23 02/11/23 History (Linzess) sennosides 8.6 mg capsule (senna) 17.2 mg PO BID PRN constipation 02/11/23 02/11/23 History Allergies Allergy/AdvReac Type Severity Reaction Status Date / Time amoxicillin [From Augmentin] Allergy Verified 10/27/22 20:47 clavulanic acid Allergy Verified 10/27/22 20:47 [From Augmentin] Pertussis Vaccines Allergy Verified 10/27/22 20:47 phenytoin [From Dilantin] Allergy Verified 10/27/22 20:47 promethazine [From Phenergan] Allergy Verified 10/27/22 20:47 Exam Narrative Exam Narrative: Pt cooperates only minimally with exam and says no to most requests. Unable to perform complete exam d/t limitations of chronic intellectual disability. Constitutional Vital Signs, click to edit/add: Last Vital Signs Temp 97.7 F 02/11/23 11:20 Pulse 90 10/26/23 11:20 Resp 20 02/11/23 11:20 BP 109/69 02/11/23 11:20 Pulse Ox 88 L 02/11/23 11:20 O2 Del Method Room Air 02/11/23 11:20 O2 Flow Rate 2 02/11/23 06:12 Common normals: no apparent distress Exam limitations: altered mental status (acute lethargy on chronic intellectual disability) General appearance: cooperative (minimally) HENWV Common normals: normocephalic, head/scalp atraumatic, external ears normal and external nose normal Head and scalp: normocephalic and atraumatic Face and sinus: normal facial exam Nose: external nose normal External ear: external ears normal Eye Eyelid: eyelids normal Chest Common normals: inspection of chest normal Chest: symmetrical chest wall rise Respiratory Common normals: normal respiratory effort, no retractions, no use of accessory muscles and clear to auscultation bilaterally Auscultation: clear to auscultation bilaterally and diminished lung sounds (BLL, greatest on left) Cardio Common normals: no JVD, regular rate, regular rhythm, S1 normal heart sound, S2 normal heart sound, no gallops, no clicks, no murmurs, no rub and peripheral pulses 2+ throughout Rate: regular rate Rhythm: regular rhythm Heart sounds: S1 normal and S2 normal Peripheral pulses: pulses 2+ throughout GI Common normals: Normal to inspection, nondistended, normoactive bowel sounds present, soft to palpation, non-tender, no hepatosplenomegaly, no masses and no bruits Palpation: soft and no hepatosplenomegaly Bladder/kidney exam: bladder normal to palpation Back & Pelvis Common normals: thoracic and lumbar spine normal to inspection Extremity Common normals: normal capillary refill General: normal exam except as noted, deformity (chronic spastic quadraparesis) and edema (1+ bilat insteps/ankles); no clubbing and no cyanosis Neuro [place] Coma Scale: GCS not evaluated Common normals: CN's II-XII intact bilaterally and moves all extremities Sensorium/orientation: awake and lethargic Gait (neuro): spastic hemiparesis (quadraparesis) Psych Speech: other (Mostly non-verbal at baseline. Answers yes/no at times) Thought process: normal thought process Attention/concentration: attention grossly impaired Memory/cognition: cognition grossly impaired Results Labs Labs: Short CBC 02/11/23 Range/Units 05:00 WBC 5.4 (4.0-11.0) 10^3/uL Hgb 10.9 L (14.0-18.0) g/dL Hct 33.0 L (42.0-54.0) % Plt Count 259 (150-450) 10^3/uL BMP 02/11/23 05:00 Sodium 141 Potassium 3.2 L Chloride 105 Carbon Dioxide 28.8 BUN 13.0 Creatinine 0.75 Glucose 117 H Calcium 8.4 L Liver Function 02/11/23 Range/Units 05:00 Total Bilirubin 0.4 (0.2-1.0) mg/dL AST 126 H (15-37) U/L ALT 83 H (16-63) U/L Alkaline Phosphatase 38 L (46-116) U/L Albumin 2.9 L (3.4-5.0) g/dL Pulse Oximetry Attestation: I have reviewed the pertinent pulse oximetry results. Imaging Chest x-ray: Attestation: I have reviewed the pertinent imaging results. Radiologist's impression: IMPRESSION: 1. Airspace opacities in the mid to lower left lung and at the right lung base could represent atelectasis, aspiration changes, and/or pneumonia. Assessment and Plan Assessment and Plan (1) Sepsis: Assessment and Plan: ACUTE * Adm inpatient * Sepsis AEB: * SEP1 Criteria: Temp 101, P 96, R 27, SBP 86, new hypoxia 87% RA. Source - COVID 19 w/ associated pneumonia (suspect gram neg secondary bacterial) * SEP3 Criteria: qSOFA 3/3 (SBP 87, AMS - lethargic, RR 27); Source - COVID 19 w/ associated pneumonia (suspect gram neg secondary bacterial) * No evidence of mottling or delayed cap refill on exam * LA WNL 1.6 * 1 liter bolus in ED followed by NS at 125/hr - does not meet criteria for 30 ml/kg bolus but remains at risk * Low threshold to give an additional bolus pending clinical course * ABX as below * VS q4h for close monitoring * CBC, CMP in AM (2) Pneumonia due to COVID-19 virus: Assessment and Plan: ACUTE * Multilobar L sided pneumonia noted on CXR - suspect secondary gram neg bacterial infiltrate * Rocephin IVPB plus doxycycline IVPB for emperic gram neg/atypical coverage * O2 to keep sats > 90% * Pt frequently non-compliant w/ NC * Scheduled duonebs, PRN albuterol nebs * Repeat CXR in AM (3) Acute respiratory failure due to COVID-19: Assessment and Plan: ACUTE * 2/2 covid 19/pneumonia * O2 supplementation and ABX as above (4) Hypokalemia: Assessment and Plan: ACUTE * KCL 40 meq IVPB rider * Add mag level to ED labs and replete if needed * repeat CMP in AM (5) Epileptic seizure: Assessment and Plan: ACUTE BREAKTHROUGH ON CHRONIC * Increased seizure activity per [place] [facility] - poorly controlled at baseline * IVPB Keppra given in ED * Seizure precautions * Continue home keppra, clobazam, felbamate, oxcarbazepine scheduled. May use home meds if not on formulary * Continue PRN clonazepam/diazepam suppository for breakthrough seizures * Consider teleneurology consult pending clinical course (6) BPH (benign prostatic hyperplasia): Assessment and Plan: CHRONIC * Continue home tamsulosin * Bladder scans if poor urine output to assess for urinary retention (7) Hepatic encephalopathy: Assessment and Plan: CHRONIC * Continue home Xifaxan and lactulose * Check ammonia level and adjust lactulose dosing as indicated (8) COPD (chronic obstructive pulmonary disease): Assessment and Plan: CHRONIC * Continue home nebulizer treatments * No clinical concern for acute exacerbation at this time (9) Hypothyroidism: Assessment and Plan: CHRONIC * Continue home levothyroxine (10) GERD (gastroesophageal reflux disease): Assessment and Plan: CHRONIC * Continue home PPI (11) Excessive salivation: Assessment and Plan: CHRONIC * Continue home glycopyrrolate
[2023-02-11] MEDS: REMDESIVIR 200 MG in 0.9 % SODIUM CHLORIDE 250 ML 250 MG IV (12:23)
[2023-02-11 13:08] LABS: Magnesium 1.9 mg/dL (1.8-2.4)
[2023-02-11 13:13] LABS: Ammonia 66 umol/L (11-32)
--- NOTE | 2023-02-11 13:28 | SWNOTE1 ---
SW called and spoke with pt's mother over the phone and reviewed Important Message from Medicare form. Pt's mother had no questions, SW signed on behalf of mother. Copy placed on chart and original in room. SW did ask pt's mother if everything is going well at [address], pt's mother voiced she was very pleased with them and plan is to return at discharge.
[2023-02-11] MEDS: LEVETIRACETAM 500 MG in 0.9 % SODIUM CHLORIDE 100 ML 420 MG IV (13:39)
[2023-02-11] MEDS: POTASSIUM CHLORIDE 40 MEQ in 0.9 % SODIUM CHLORIDE 250 ML 67.5 MEQ IV (15:11)
[2023-02-11] MEDS: IPRATROPIUM/ALBUTEROL SULFATE 3 ML AMPUL.NEB IH ×2 (15:33→20:50)
[2023-02-11] MEDS: BUDESONIDE 0.5 MG/2 ML AMPULE NEB IH (20:50)
[2023-02-11] MEDS: LEVETIRACETAM 2,000 MG in 0.9 % SODIUM CHLORIDE 100 ML 240 MG IV (22:09)
[2023-02-11] MEDS: 0.9 % SODIUM CHLORIDE 1,000 ML 75 ML IV (22:26)
[2023-02-11] MEDS: ACETAMINOPHEN 650 MG RECTAL SUPPOSITORY PR (22:30)
--- NOTE | 2023-02-11 23:22 | PC.NURSE ---
Patient refused all oral medications. Turned head away and started to swing at staff. Offered pills in ice scream and refused. [place] text into [facility] for IM anxiety medication as patient was combative, tried to bite staff, scratching at staff, as well as trying to remove IV and clothing.
--- NOTE | 2023-02-11 23:51 | PC.NURSE ---
addition IV site started d/t position of other site alarming when fluid was running. rt antecub site flushes without problem. IV changed to lt upper forearm site.
[2023-02-12] VITALS (10 sets, daily range): BP systolic 114–145; BP diastolic 65–78; PULSE 69–92; RESP 16–20; TEMP 36.4–37.3; O2SAT 91–98
[2023-02-12 05:11] LABS: Hematocrit 32.3 % (42.0-54.0); Hemoglobin 10.6 g/dL (14.0-18.0); Mean Corpuscular HGB Conc 32.8 g/dL (29.9-35.2); Mean Corpuscular Hemoglobin 31.9 pg (25.9-34.0); Mean Corpuscular Volume 97.3 fL (80.0-94.0); Mean Platelet Volume 10.5 fL (9.5-13.5); Platelet Count 180 10^3/uL (150-450); Red Blood Count 3.32 10^6/uL (4.70-6.10)
[2023-02-12 05:31] LABS: Ammonia 58 umol/L (11-32)
[2023-02-12 05:46] LABS: Alanine Aminotransferase 102 U/L (16-63); Albumin Globulin Ratio 0.8; Albumin Level 2.6 g/dL (3.4-5.0); Alkaline Phosphatase 29 U/L (46-116); Anion Gap 11.6; Aspartate Amino Transferase 120 U/L (15-37); Bilirubin Total 0.4 mg/dL (0.2-1.0); Calcium 8.1 mg/dL (8.5-10.1); Carbon Dioxide 25.1 mmol/L (21.0-32.0); Chloride 105 mmol/L (98-107); Estimated GFR (African America >60 (>=60); Estimated GFR (Non-African Ame >60 (>=60); Globulin 3.1 g/dL; Glucose 82 mg/dL (74-106); Potassium 3.7 mmol/L (3.5-5.1); Sodium 138 mmol/L (136-145); Total Protein 5.7 g/dL (6.4-8.2)
--- NOTE | 2023-02-12 05:50 | PC.NURSE ---
Critical Ammonia 58. Dr Song notified via [place] Text.
--- NOTE | 2023-02-12 06:00 | XR_ITS ---
The [address] [address] Patient Name: FRANCOIS LOPEZ MRN: [id number] date: 1980 Sex: M Assigned Patient Location: [place] Current Patient Location: [place] Accession/Order Number: [id number] Exam Date: 02/12/2023 06:15 Report Date: 02/12/2023 06:33 At the request of: KG MARIE Procedure: XR chest 1V EXAMINATION: XR chest 1V HISTORY: hypoxia, pneumonia surveillance COMPARISON: XR chest 02/11/2023 FINDINGS: LUNGS: Bilateral perihilar prominence, left greater than right. Underexpanded lungs without appreciable peripheral infiltrates. VASCULATURE: No increased pulmonary vasculature. PLEURA: No pneumothorax, effusion, or pleural thickening. CARDIAC: No cardiomegaly or cardiac silhouette abnormality. MEDIASTINUM: No visible mass or adenopathy. BONES: No fracture or visible bone lesion. OTHER: Stable neurostimulator pack projecting over the lower left hemithorax. XR/XR chest 1V IMPRESSION: 1. Low lung volume examination with bilateral perihilar prominence; pulmonary edema versus infectious infiltrates, changed in configuration since prior study but not significantly improved. Atelectasis is felt less likely. Electronically authenticated by: KRISTIAN BILLINGS Date: 02/12/2023 06:33
--- NOTE | 2023-02-12 06:16 | PC.NURSE ---
Patient uncooperative and will not take an oral PO meds. Dr lynn aware
[2023-02-12 08:39] LABS: Red Cell Distribution Width 12.9 % (11.0-15.0)
--- NOTE | 2023-02-12 08:59 | CM.NOTE ---
Rounds made with Dr. Song, no discharge today.
[2023-02-12] MEDS: BUDESONIDE 0.5 MG/2 ML AMPULE NEB IH ×2 (09:10→20:35)
[2023-02-12] MEDS: IPRATROPIUM/ALBUTEROL SULFATE 3 ML AMPUL.NEB IH ×3 (09:10→20:35)
[2023-02-12] MEDS: QUETIAPINE FUMARATE 25 MG TABLET PO (09:33)
[2023-02-12 09:49] LABS: Lymphocytes Absolute Manual 1.08 10^3/uL (1.20-3.80); Monocytes Absolute Manual 0.42 10^3/uL (0.30-0.80)
[2023-02-12] MEDS: GUAIFENESIN 200 MG/10 ML LIQUID 400 MG PO ×2 (11:11→21:37)
[2023-02-12] MEDS: POLYETHYLENE GLYCOL 3350 17 GM POWDER PACKET PO (11:11)
[2023-02-12] MEDS: OXcarbazepine 300 MG TABLET 900 MG PO ×2 (11:12→21:39)
[2023-02-12] MEDS: RIFAXIMIN 550 MG TABLET PO ×2 (11:12→21:39)
[2023-02-12] MEDS: ENOXAPARIN SODIUM 40 MG/0.4 ML SYRINGE SUBQ (11:12)
[2023-02-12] MEDS: MAGNESIUM OXIDE 400 MG TABLET PO (11:12)
[2023-02-12] MEDS: OMEPRAZOLE 40 MG CAPSULE.DR PO (11:12)
[2023-02-12] MEDS: CHOLECALCIFEROL (VITAMIN D3) 125 MCG/5000 UNIT TABLET PO (11:12)
[2023-02-12] MEDS: DEXAMETHASONE SOD PHOS 4 MG/ML VIAL IV (11:13)
[2023-02-12] MEDS: FLUTICASONE PROPIONATE 50 MCG NASAL SPRAY 2 SPRAY NS (11:13)
[2023-02-12] MEDS: DOCUSATE SODIUM 100 MG CAPSULE 200 MG PO (11:13)
[2023-02-12] MEDS: TAMSULOSIN HCL 0.4 MG CAPSULE PO (11:13)
--- NOTE | 2023-02-12 14:27 | P.PN_ITS ---
Patient seen and examined at 725 on 02/12/2023 Cardiac and physical examination as documented by nurse practitioner. Agree with input and no additional findings. No fever overnight. He needs to maintain hospitalization 1 additional day. If he can maintain fever free for 24 hours he can be discharged home. He is likely to follow direction in have better p.o. intake of medications at his previous facility. Progress Note: Subjective Subjective Interval history: Date/Time of exam: 02/12/23 0950 Nursing notes that the patient was combative overnight and frequently taking off his oxygen and pulling out his IV lines. He ran a fever overnight up to 101. He has a history of being noncooperative with care when he is feeling ill. He was given Geodon x1 during the night which was effective but has now worn off. The patient is only partially cooperative with exam but does allow an exam. We will give further Geodon and monitor his response and consider as needed Geodon orders pending clinical course. Nursing will restart the patient's IV as he is refusing all p.o. medications and this is the only way we can give him his seizure medications. He has not had a seizure since admission so far but remains in seizure precautions. We will redraw blood cultures today as he continues to be febrile and consider adding further antibiotics if he continues to be episodically febrile. Exam Narrative Exam Narrative: Pt awake, minimally cooperative with exam. Non-verbal at baseline. Constitutional Vital Signs, click to edit/add: Last Vital Signs Temp 98.6 F 02/12/23 06:04 Pulse 92 H 02/12/23 06:04 Resp 18 02/12/23 06:04 BP 114/70 02/12/23 06:04 Pulse Ox 91 L 02/12/23 09:10 O2 Del Method Room Air 02/12/23 09:10 O2 Flow Rate 2 02/11/23 06:12 Common normals: no apparent distress and alert General appearance: cooperative Orientation/consciousness: Yes awake HENMT Common normals: normocephalic and head/scalp atraumatic Head and scalp: normocephalic and atraumatic Eye Common normals: PERRL, EOMs intact bilaterally, conjunctivae normal and no scleral icterus General eye: normal appearance of both eyes Conjunctiva: conjunctiva(e) normal Pupil: PERRL Neck & C-Spine Common normals: no JVD Chest Common normals: inspection of chest normal Chest: symmetrical chest wall rise Respiratory Common normals: normal respiratory effort and no use of accessory muscles Effort & inspection: able to speak in complete sentences Auscultation: rales (Faint RLL) and diminished lung sounds (LLL) Cardio Common normals: no JVD, regular rhythm, S1 normal heart sound, S2 normal heart sound, no gallops, no clicks, no murmurs, no rub and peripheral pulses 2+ throughout Rate: tachycardic (mild) Rhythm: regular rhythm Heart sounds: S1 normal and S2 normal Peripheral pulses: pulses 2+ throughout GI Common normals: Normal to inspection, nondistended, normoactive bowel sounds present, soft to palpation, non-tender and no hepatosplenomegaly Palpation: soft and no hepatosplenomegaly Bladder/kidney exam: bladder normal to palpation Extremity Common normals: normal to inspection and no calf tenderness General: edema (Trace bilat insteps); no clubbing and no cyanosis Neuro Common normals: oriented x3, CN's II-XII intact bilaterally, moves all extremities, no focal motor deficits and no sensory deficits noted Sensorium/orientation: awake and alert Psych Common normals: mental status grossly normal Progress Note: Objective Labs Labs: Short CBC 02/12/23 Range/Units 04:18 WBC 6.0 (4.0-11.0) 10^3/uL Hgb 10.6 L (14.0-18.0) g/dL Hct 32.3 L (42.0-54.0) % Plt Count 180 (150-450) 10^3/uL BMP 02/12/23 04:18 Sodium 138 Potassium 3.7 Chloride 105 Carbon Dioxide 25.1 BUN 11.0 Creatinine 0.44 L Glucose 82 Calcium 8.1 L Liver Function 02/12/23 Range/Units 04:18 Total Bilirubin 0.4 (0.2-1.0) mg/dL AST 120 H (15-37) U/L ALT 102 H (16-63) U/L Alkaline Phosphatase 29 L (46-116) U/L Albumin 2.6 L (3.4-5.0) g/dL Progress Note: A&P Assessment and Plan (1) Sepsis: Assessment and Plan: ACUTE * Recurrent fever overnight. Repeat BC x 2 now. * BP stable overnight on reduced IVF rate of 75/hr * Pt has pulled out his IV twice. Will reinsert and continue IVF hydration at gentle rate * ABX as below * VS q4h for close monitoring * CBC, CMP in AM(2) Pneumonia due to COV * Sepsis AEB on admission: * SEP1 Criteria: Temp 101, P 96, R 27, SBP 86, new hypoxia 87% RA. Source - COVID 19 w/ associated pneumonia (suspect gram neg secondary bacterial) * SEP3 Criteria: qSOFA 3/3 (SBP 87, AMS - lethargic, RR 27); Source - COVID 19 w/ associated pneumonia (suspect gram neg secondary bacterial) * No evidence of mottling or delayed cap refill on exam * LA WNL 1.6 (2) Pneumonia due to COVID-19 virus: Assessment and Plan: ACUTE * Multilobar L sided pneumonia noted on CXR - suspect secondary gram neg bacterial infiltrate * Persistent PNA on CXR today * Continue Rocephin IVPB plus doxycycline IVPB for emperic gram neg/atypical coverage * O2 to keep sats > 90% * Pt frequently non-compliant w/ NC * Stable on RA today so far * Scheduled duonebs, PRN albuterol nebs * Repeat CXR in AM (3) Acute respiratory failure due to COVID-19: Assessment and Plan: ACUTE * 2/2 covid 19/pneumonia * O2 supplementation and ABX as above (4) Hypokalemia: Assessment and Plan: ACUTE * Resolved on AM labs * repeat CMP in AM (5) Epileptic seizure: Assessment and Plan: ACUTE BREAKTHROUGH ON CHRONIC * Increased seizure activity per long term - poorly controlled at baseline * No recurrent seizures overnight * Seizure precautions * Continue home keppra (converted to IV), clobazam, felbamate, oxcarbazepine scheduled. May use home meds if not on formulary * Pt refusing to take PO meds * Continue PRN clonazepam/diazepam suppository for breakthrough seizures * Consider teleneurology consult pending clinical course (6) BPH (benign prostatic hyperplasia): Assessment and Plan: CHRONIC * Continue home tamsulosin * Bladder scans if poor urine output to assess for urinary retention * Good urine output overnight (7) Hepatic encephalopathy: Assessment and Plan: CHRONIC * Continue home Xifaxan and lactulose at increased QID dosing * Pt refusing to take * Ammonia level dropped today w/o further lactulose dosing * Check ammonia level and adjust lactulose dosing as indicated (8) COPD (chronic obstructive pulmonary disease): Assessment and Plan: CHRONIC * Continue home nebulizer treatments * No clinical concern for acute exacerbation at this time (9) Hypothyroidism: Assessment and Plan: CHRONIC * Continue home levothyroxine (10) GERD (gastroesophageal reflux disease): Assessment and Plan: CHRONIC * Continue home PPI (11) Excessive salivation: Assessment and Plan: CHRONIC * Continue home glycopyrrolate
[2023-02-12] MEDS: 0.9 % SODIUM CHLORIDE 1,000 ML 75 ML IV (18:01)
[2023-02-12] MEDS: LACTULOSE 10 GM/15 ML (237ML) SOLUTION 60 GM PO ×2 (18:02→21:40)
[2023-02-12] MEDS: CEFTRIAXONE 1,000 MG in 0.9 % SODIUM CHLORIDE 50 ML 100 MG IV (18:05)
[2023-02-12] MEDS: SODIUM CHLORIDE/ALOE VERA SALINE NASAL GEL 14.1 GM TUBE 2 APPLIC NS ×2 (18:05→21:40)
[2023-02-12] MEDS: DOXYCYCLINE HYCLATE 100 MG in 0.9 % SODIUM CHLORIDE 100 ML IV (18:50)
[2023-02-12] MEDS: REMDESIVIR 100 MG in 0.9 % SODIUM CHLORIDE 100 ML 200 MG IV (19:58)
[2023-02-12] MEDS: LEVETIRACETAM 2,000 MG in 0.9 % SODIUM CHLORIDE 100 ML 240 MG IV (21:39)
[2023-02-12] MEDS: MONTELUKAST SODIUM 10 MG TABLET PO (21:39)
[2023-02-13 03:36] VITALS: BP 144/66; PULSE 71; RESP 16; TEMP 36.4; O2SAT 93
[2023-02-13 04:00] LABS: Basophils Percent Auto 0.7 % (0.2-2.0); Eosinophils Percent Auto 0.2 % (0.9-7.0); Hematocrit 33.7 % (42.0-54.0); Immature Granulocytes Abs Auto 0.01 10^3/uL (0.00-0.03); Immature Granulocytes Pct Auto 0.2 % (0.0-0.5); Lymphocytes Absolute Auto 1.5 10^3/uL (1.2-3.8); Lymphocytes Percent Auto 34.9 % (20.5-60.0); Mean Corpuscular HGB Conc 32.6 g/dL (29.9-35.2); Mean Corpuscular Hemoglobin 31.3 pg (25.9-34.0); Mean Platelet Volume 10.2 fL (9.5-13.5); Monocytes Absolute Auto 0.6 10^3/uL (0.3-0.8); Monocytes Percent Auto 14.5 % (1.7-12.0); Neutrophils Absolute Auto 2.1 10^3/uL (1.4-6.5); Neutrophils Percent Auto 49.5 % (43.0-75.0); Platelet Count 239 10^3/uL (150-450); Red Blood Count 3.51 10^6/uL (4.70-6.10); Red Cell Distribution Width 13.2 % (11.0-15.0); White Blood Count 4.2 10^3/uL (4.0-11.0)
[2023-02-13 04:25] LABS: Alanine Aminotransferase 103 U/L (16-63); Albumin Globulin Ratio 0.8; Albumin Level 2.8 g/dL (3.4-5.0); Alkaline Phosphatase 46 U/L (46-116); Aspartate Amino Transferase 83 U/L (15-37); BUN Creatinine Ratio 11.6; Bilirubin Total 0.3 mg/dL (0.2-1.0); Calcium 8.8 mg/dL (8.5-10.1); Carbon Dioxide 31.1 mmol/L (21.0-32.0); Chloride 104 mmol/L (98-107); Estimated GFR (African America >60 (>=60); Estimated GFR (Non-African Ame >60 (>=60); Globulin 3.4 g/dL; Glucose 154 mg/dL (74-106); Potassium 4.1 mmol/L (3.5-5.1); Sodium 138 mmol/L (136-145); Total Protein 6.2 g/dL (6.4-8.2)
[2023-02-13 04:26] LABS: Ammonia 104 umol/L (11-32)
[2023-02-13 04:54] VITALS: BP 120/65; PULSE 69; RESP 18; TEMP 36.4; O2SAT 93
[2023-02-13] MEDS: ZIPRASIDONE MESYLATE 20 MG, WATER FOR INJECTION,STERILE 1.2 ML IM (05:43)
--- NOTE | 2023-02-13 06:00 | XR_ITS ---
The [address] [address] Patient Name: FRANCOIS LOPEZ MRN: [id number] date: 1980 Sex: M Assigned Patient Location: [place] Current Patient Location: Accession/Order Number: [id number] Exam Date: 02/13/2023 05:45 Report Date: 02/13/2023 10:08 At the request of: KG MARIE Procedure: XR chest 1V EXAM: XR chest 1V HISTORY: Hypoxia. Pneumonia. COMPARISON: 02/12/2023 FINDINGS: There is a poor inspiratory volume with crowding of the bronchovascular markings and patchy bilateral atelectasis. The heart is not significantly enlarged. There is prominence of the interstitial markings. No significant pleural fluid collection is observed. There is no evidence of a consolidated infiltrate or pneumothorax. XR/XR chest 1V IMPRESSION: Crowding of the bronchovascular with patchy bilateral atelectasis. Electronically authenticated by: FISH SCHWAB Date: 02/13/2023 10:08
[2023-02-13] MEDS: LACTULOSE 10 GM/15 ML (237ML) SOLUTION 60 GM PO ×2 (06:25→11:14)
[2023-02-13] MEDS: LEVOTHYROXINE SODIUM 75 MCG TABLET 150 MCG PO (06:25)
[2023-02-13] MEDS: SODIUM CHLORIDE/ALOE VERA SALINE NASAL GEL 14.1 GM TUBE 2 APPLIC NS ×2 (06:26→13:36)
[2023-02-13 08:02] VITALS: BP 132/71; PULSE 70; RESP 16; TEMP 36.7; O2SAT 94
[2023-02-13] MEDS: DEXAMETHASONE 4 MG TABLET PO (09:23)
[2023-02-13] MEDS: CHOLECALCIFEROL (VITAMIN D3) 125 MCG/5000 UNIT TABLET PO (09:23)
[2023-02-13] MEDS: GUAIFENESIN 200 MG/10 ML LIQUID 400 MG PO (09:24)
[2023-02-13] MEDS: LEVOFLOXACIN 500 MG TABLET PO (09:25)
[2023-02-13] MEDS: LEVETIRACETAM 500 MG TABLET 1500 MG PO (09:25)
[2023-02-13] MEDS: MAGNESIUM OXIDE 400 MG TABLET PO (09:25)
[2023-02-13] MEDS: RIFAXIMIN 550 MG TABLET PO (09:26)
[2023-02-13] MEDS: OMEPRAZOLE 40 MG CAPSULE.DR PO (09:26)
[2023-02-13] MEDS: TAMSULOSIN HCL 0.4 MG CAPSULE PO (09:26)
[2023-02-13] MEDS: OXcarbazepine 300 MG TABLET 900 MG PO (09:26)
[2023-02-13] MEDS: IPRATROPIUM/ALBUTEROL SULFATE 3 ML AMPUL.NEB IH (09:57)
[2023-02-13] MEDS: BUDESONIDE 0.5 MG/2 ML AMPULE NEB IH (09:57)
[2023-02-13 09:58] VITALS: O2SAT 94
--- NOTE | 2023-02-13 11:35 | PM.DS1 ---
DS: Providers Provider Date of admission: 02/11/23 08:18 Primary care physician: ERIKA VENTURA DO DS: Diagnosis Discharge Diagnosis (1) Sepsis: (2) Pneumonia due to COVID-19 virus: (3) Acute respiratory failure due to COVID-19: (4) Hypokalemia: (5) Epileptic seizure: (6) BPH (benign prostatic hyperplasia): (7) Hepatic encephalopathy: (8) COPD (chronic obstructive pulmonary disease): (9) Hypothyroidism: (10) GERD (gastroesophageal reflux disease): (11) Excessive salivation: DS: Summary Hospital Course Hospital Course: Patient was having recurrent seizures at his facility. Medications were effective at stopping but later having recurrences. I to be COVID-19 positive in the emergency room found to be hypoxic with acute COVID-19 pneumonia. Patient was admitted, placed on remdesivir and steroids. Patient was difficult to encouraged to follow directions terms of taking his medications and staying in bed. He did spike a fever 24 hours prior to discharge. With that he is did state the extra day. Blood cultures are pending at this time but so far showed no growth. Patient appears much improved this morning. Following commands much improved. Did take all of his medications this morning. He does have significant hyperammonemia this morning however he has not been taking his medications up until this morning. I do believe he will follow commands and take his medications more appropriately at his other facility. With him being fever free and overall improved to be discharged back to his previous facility. Medications see list. Follow-up with his PCP at the facility. Time Spent with Patient Time attestation: Total time spent providing and/or coordinating discharge services: Exam Constitutional Vital Signs, click to edit/add: Last Vital Signs Temp 98.1 F 02/13/23 08:02 Pulse 70 02/13/23 08:02 Resp 16 02/13/23 08:02 BP 132/71 02/13/23 08:02 Pulse Ox 94 L 02/13/23 09:58 O2 Del Method Room Air 02/13/23 09:58 O2 Flow Rate 2 02/11/23 06:12 Documenting provider has reviewed patient's vital signs: yes Common normals: no apparent distress Respiratory Common normals: normal respiratory effort and no retractions Auscultation: rhonchi (Mild rhonchi but overall improved) Cardio Common normals: regular rate and regular rhythm GI Common normals: Normal to inspection, nondistended, normoactive bowel sounds present Psych Attitude: calm DS: Data Data Completed and Pending Labs on day of discharge: Labs from last 24 hours 02/13/23 03:55 WBC 4.2 RBC 3.51 L Hgb 11.0 L Hct 33.7 L MCV 96.0 H MCH 31.3 MCHC 32.6 RDW 13.2 Plt Count 239 MPV 10.2 Neut % (Auto) 49.5 Lymph % (Auto) 34.9 [place] % (Auto) 14.5 H Eos % (Auto) 0.2 L Baso % (Auto) 0.7 Neut # (Auto) 2.1 Lymph # (Auto) 1.5 [place] # (Auto) 0.6 Eos # (Auto) 0.0 Baso # (Auto) 0.0 Abs Immat Gran (auto) 0.01 Imm/Tot Granulo (auto) 0.2 Sodium 138 Potassium 4.1 Chloride 104 Carbon Dioxide 31.1 Anion Gap 7.0 BUN 8.0 Creatinine 0.69 L Est GFR ( Amer) >60 Est GFR (Non-Af Amer) >60 BUN/Creatinine Ratio 11.6 Glucose 154 H Calcium 8.8 Total Bilirubin 0.3 AST 83 H ALT 103 H Alkaline Phosphatase 46 Ammonia 104 H* Total Protein 6.2 L Albumin 2.8 L Globulin 3.4 Albumin/Globulin Ratio 0.8 Discharge Plan Discharge Disposition: Home, Self-Care Condition: Fair Discharge Medications: New levofloxacin 500 mg Tablet 500 mg PO QD Qty: 7 0RF Continued alendronate 70 mg tablet 70 mg PO .COMPLEX Rx Instructions: 70 mg orally Every ; atorvastatin 10 mg tablet 10 mg PO DAILY budesonide 0.5 mg/2 mL suspension for nebulization 0.5 mg inhalation BID clobazam 10 mg tablet 10 mg PO BID docusate sodium [DOK] 100 mg tablet 200 mg PO DAILY felbamate 400 mg tablet 400 mg PO TID fenofibrate nanocrystallized 145 mg tablet 145 mg PO DAILY fluticasone propionate 50 mcg/actuation spray,suspension 2 spray INTRANASAL DAILY furosemide 20 mg tablet 20 mg PO DAILY glycopyrrolate 1 mg tablet 1 mg PO BID guaifenesin [Chest Congestion Relief] 400 mg tablet 400 mg PO BID ipratropium-albuterol 0.5 mg-3 mg(2.5 mg base)/3 mL solution for nebulization 3 ml INHALATION TID lactulose 10 gram/15 mL solution 60 g PO TID levetiracetam 500 mg tablet 500 mg PO DAILY Rx Instructions: take one tablet by mouth daily at bedtime with 750mg tablets to equal 2000mg levetiracetam 750 mg tablet 1,500 mg PO BID levothyroxine 150 mcg tablet 150 mcg PO DAILY Linzess 145 mcg capsule 145 mcg PO DAILY loratadine 10 mg tablet 10 mg PO DAILY magnesium oxide 400 mg (241.3 mg magnesium) tablet 400 mg PO DAILY montelukast 10 mg tablet 10 mg PO DAILY omeprazole 40 mg capsule,delayed release(DR/EC) 40 mg PO DAILY oxcarbazepine 300 mg tablet 300 mg PO BID oxcarbazepine 600 mg tablet 600 mg PO BID polyethylene glycol 3350 17 gram/dose powder 17 g PO DAILY tamsulosin 0.4 mg capsule 0.4 mg PO DAILY cholecalciferol (vitamin D3) 125 mcg (5,000 unit) capsule 125 mcg PO DAILY Xifaxan 550 mg tablet 550 mg PO BID [place] Saline Gel [place],Non-Aerosol 2 spray intranasal TID acetaminophen 325 mg capsule 650 mg PO Q4H PRN (Reason: fever or pain) acetaminophen 650 mg suppository 650 mg [place] Q4H PRN (Reason: fever) clonazepam 0.25 mg tablet,disintegrating 0.25 mg translingual Q12H PRN (Reason: as needed for cluster of 5 seizures) diazepam 5-7.5-10 mg kit 5 mg [place] .COMPLEX PRN (Reason: if 3 or more seizures in 2hrs) Rx Instructions: 5 mg rectally may repeat in 2hrs as needed PRN; Linzess 145 mcg capsule 145 mcg PO DAILY albuterol sulfate 2.5 mg /3 mL (0.083 %) solution for nebulization 2.5 mg inhalation Q6H PRN (Reason: shortness of breath) Ultra Fresh PM Ointment 1 applic ophthalmic (eye) TID PRN (Reason: dry eye(s)) erythromycin 5 mg/gram (0.5 %) ointment 1 applic ophthalmic (eye) TID PRN (Reason: eye irritation) senna 8.6 mg capsule 17.2 mg PO BID PRN (Reason: constipation) Rx Instructions: IF NO BM IN 4 DAYS Activity: increase activity as tolerated Diet: advance to your usual diet Patient Instructions: Levofloxacin (By mouth) Forms: Portal Instructions Discharge Date/Time: 02/13/23 14:15 Discharge location: d/c to [facility]
--- NOTE | 2023-02-13 11:49 | PC.NURSE ---
called giuliana to [facility] and requested call back with sisal picker time for patient
[2023-02-13 12:33] VITALS: BP 123/64; PULSE 77; RESP 18; O2SAT 93
--- NOTE | 2023-02-15 14:05 | CM.DCFOLLOWU ---
Pt is from [facility].
== END 2023-02-13 14:15 | disposition home or self-care (01) | DRG 871 ==
LOC: ER 05:01 → MS 06:44
PROVIDERS: Admitting Provider Family Medicine; Emergency Provider Emergency Medicine; PCP Family Medicine; Visit Provider Nurse Practitioner
DX: A41.89 Other specified sepsis (principal); U07.1 COVID-19; J12.82 Pneumonia due to coronavirus disease 2019; J96.01 Acute respiratory failure with hypoxia; F72 Severe intellectual disabilities; G80.1 Spastic diplegic cerebral palsy; Q93.82 Williams syndrome; J44.0 Chronic obstructive pulmonary disease with (acute) lower respiratory infection; E72.20 Disorder of urea cycle metabolism, unspecified; R65.20 Severe sepsis without septic shock; G40.909 Epilepsy, unspecified, not intractable, without status epilepticus; K75.81 Nonalcoholic steatohepatitis (NASH); K76.82 Hepatic encephalopathy; N40.0 Benign prostatic hyperplasia without lower urinary tract symptoms; K21.9 Gastro-esophageal reflux disease without esophagitis; E78.5 Hyperlipidemia, unspecified; E03.9 Hypothyroidism, unspecified; M81.0 Age-related osteoporosis without current pathological fracture; E87.6 Hypokalemia; K11.7 Disturbances of salivary secretion; Z79.2 Long term (current) use of antibiotics; Z79.890 Hormone replacement therapy; Z79.899 Other long term (current) drug therapy; Z88.0 Allergy status to penicillin; Z88.7 Allergy status to serum and vaccine; Z88.8 Allergy status to other drugs, medicaments and biological substances
CPT/HCPCS: 36415; 36569; 36592; 71045; 80053; 81001; 82140; 83605; 83735; 85025; 85027; 87040; 87070; 87205; 87811; 93005; 94640; 94667; 94761; 96365; 96366; 96367; 96368; 96372; 96375; 96376; 99285; C1887; J0248; J3480

== ENCOUNTER 2023-04-13 22:43 | Emergency (ER) | payer MEDICARE, MEDICAID, SELFPAY ==
[2023-04-13 22:46] VITALS: BP 130/82; PULSE 95; RESP 18; TEMP 37; O2SAT 96
--- NOTE | 2023-04-13 22:46 | CT_ITS ---
The [address] [address] Patient Name: FRANCOIS LOPEZ MRN: [id number] date: 1980 Sex: M Assigned Patient Location: ER Current Patient Location: ER Accession/Order Number: [id number] Exam Date: 04/13/2023 23:15 Report Date: 04/13/2023 23:44 At the request of: LALI COOK Procedure: CT cervical spine wo con EXAM: CT cervical spine wo con HISTORY: fall from bed COMPARISON: 10/27/2022 TECHNIQUE: CT cervical spine without contrast. Multiplanar reformats obtained. The current study utilizes one or more of the following dose-reduction techniques: automated exposure control, iterative reconstruction, and/or manual adjustment of tube current and voltage for size. FINDINGS: Motion degraded exam. No evidence of acute fracture or traumatic malalignment. No prevertebral edema. Spinal canal neural foramen are grossly patent. Age expected degenerative changes. CT/CT cervical spine wo con IMPRESSION: Motion degraded exam without gross evidence of acute traumatic injury. Electronically authenticated by: ELIZABET SOLANO Date: 04/13/2023 23:44
--- NOTE | 2023-04-13 22:46 | CT_ITS ---
The [address] [address] Patient Name: FRANCOIS LOPEZ MRN: [id number] date: 1980 Sex: M Assigned Patient Location: ER Current Patient Location: ER Accession/Order Number: [id number] Exam Date: 04/13/2023 23:15 Report Date: 04/13/2023 23:41 At the request of: LALI COOK Procedure: CT head/brain wo con EXAM: CT head/brain wo con HISTORY: fall from bed COMPARISON: CT head from 10/27/2022. TECHNIQUE: Axial images of the brain were obtained from the skull base to the vertex without contrast enhancement. Sagittal and coronal reformations were provided. FINDINGS: There is a small scalp hematoma and associated soft tissue swelling at the right parietal vertex. Bone windows reveal no evidence of an underlying acute calvarial fracture. No acute intracranial hemorrhage, extra-axial fluid collection, midline shift or mass effect is seen. No space-occupying lesion is demonstrated. There is no evidence of hydrocephalus or an acute ischemic event. CT/CT head/brain wo con IMPRESSION: No CT evidence of an acute intracranial hemorrhage or acute ischemic event. Electronically authenticated by: KATI MEZA Date: 04/13/2023 23:41
--- NOTE | 2023-04-13 22:47 | ED_ITS ---
HPI - Head Injury General Chief complaint: Head Injury Stated complaint: Head injury Time Seen by Provider: 04/13/23 22:46 History of Present Illness HPI Narrative: 43-year-old male presents from [facility] for an injury to his head. He was found on the floor beside his bed just before coming into the emergency department, transported by paramedics. He was noted to have a small laceration on the posterior scalp. To provide us any history because of his previous medical issues. No other apparent injury. Paramedics were unable to place a c-collar on him because he would not cooperate. No further history is obtainable. Related Data Home Medications Medication Instructions Recorded Confirmed acetaminophen 325 mg capsule 650 mg PO Q4H PRN fever or pain 10/27/22 02/11/23 acetaminophen 650 mg rectal 650 mg OR Q4H PRN fever 10/27/22 02/11/23 suppository alendronate 70 mg tablet 70 mg PO .COMPLEX 10/27/22 02/11/23 atorvastatin 10 mg tablet 10 mg PO DAILY 10/27/22 02/11/23 budesonide 0.5 mg/2 mL suspension 0.5 mg inhalation BID 10/27/22 02/11/23 for nebulization cholecalciferol (vitamin D3) 125 125 mcg PO DAILY 10/27/22 02/11/23 mcg (5,000 unit) capsule clobazam 10 mg tablet 10 mg PO BID 10/27/22 02/11/23 clonazepam 0.25 mg disintegrating 0.25 mg translingual Q12H PRN as 10/27/22 02/11/23 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 diazepam 5 mg-7.5 mg-10 mg rectal 5 mg OR .COMPLEX PRN if 3 or more 10/27/22 02/11/23 kit seizures in 2hrs docusate sodium 100 mg tablet (DOK) 200 mg PO DAILY 10/27/22 02/11/23 felbamate 400 mg tablet 400 mg PO TID 10/27/22 02/11/23 fenofibrate nanocrystallized 145 145 mg PO DAILY 10/27/22 02/11/23 mg tablet fluticasone propionate 50 2 spray intranasal DAILY 10/27/22 02/11/23 mcg/actuation nasal spray,suspension furosemide 20 mg tablet 20 mg PO DAILY 10/27/22 02/11/23 glycopyrrolate 1 mg tablet 1 mg PO BID 10/27/22 02/11/23 guaifenesin 400 mg tablet (Chest 400 mg PO BID 10/27/22 02/11/23 Congestion Relief) ipratropium 0.5 mg-albuterol 3 mg 3 ml inhalation TID 10/27/22 02/11/23 (2.5 mg base)/3 mL nebulization soln lactulose 10 gram/15 mL oral 60 g PO TID 10/27/22 02/11/23 solution levetiracetam 500 mg tablet 500 mg PO DAILY 10/27/22 02/11/23 levetiracetam 750 mg tablet 1,500 mg PO BID 10/27/22 02/11/23 levothyroxine 150 mcg tablet 150 mcg PO DAILY 10/27/22 02/11/23 linaclotide 145 mcg capsule 145 mcg PO DAILY 10/27/22 02/11/23 (Linzess) loratadine 10 mg tablet 10 mg PO DAILY 10/27/22 02/11/23 magnesium oxide 400 mg (241.3 mg 400 mg PO DAILY 10/27/22 02/11/23 magnesium) tablet montelukast 10 mg tablet 10 mg PO DAILY 10/27/22 02/11/23 omeprazole 40 mg capsule,delayed 40 mg PO DAILY 10/27/22 02/11/23 release oxcarbazepine 300 mg tablet 300 mg PO BID 10/27/22 02/11/23 oxcarbazepine 600 mg tablet 600 mg PO BID 10/27/22 02/11/23 polyethylene glycol 3350 17 17 g PO DAILY 10/27/22 02/11/23 gram/dose oral powder rifaximin 550 mg tablet (Xifaxan) 550 mg PO BID 10/27/22 02/11/23 sodium chloride-aloe vera nasal 2 spray intranasal TID dry nasal 10/27/22 02/11/23 spray ([place] Saline Gel nasal spray) passages tamsulosin 0.4 mg capsule 0.4 mg PO DAILY 10/27/22 02/11/23 albuterol sulfate 2.5 mg/3 mL 2.5 mg inhalation Q6H PRN 02/11/23 02/11/23 (0.083 %) solution for nebulization shortness of breath artificial tears with lanolin eye 1 applic ophthalmic (eye) TID PRN 02/11/23 02/11/23 ointment (Ultra Fresh PM eye dry eye(s) ointment) erythromycin 5 mg/gram (0.5 %) eye 1 applic ophthalmic (eye) TID PRN 02/11/23 02/11/23 ointment eye irritation linaclotide 145 mcg capsule 145 mcg PO DAILY 02/11/23 02/11/23 (Linzess) sennosides 8.6 mg capsule (senna) 17.2 mg PO BID PRN constipation 02/11/23 02/11/23 Previous Rx's Medication Instructions Recorded levofloxacin 500 mg tablet 500 mg PO QD #7 tabs 02/13/23 Allergies Allergy/AdvReac Type Severity Reaction Status Date / Time amoxicillin [From Augmentin] Allergy Verified 10/27/22 20:47 clavulanic acid Allergy Verified 10/27/22 20:47 [From Augmentin] Pertussis Vaccines Allergy Verified 10/27/22 20:47 phenytoin [From Dilantin] Allergy Verified 10/27/22 20:47 promethazine [From Phenergan] Allergy Verified 10/27/22 20:47 Review of Systems ROS Narrative unobtainable, MRDD [facility] Medical History (Updated 04/13/23 @ 23:51 by Moreno Ackerman MD) Acute respiratory failure due to COVID-19 ?U07.1 - COVID-19 (ICD-10) ?J96.00 - Acute respiratory failure, unspecified whether with hypoxia or hypercapnia (ICD-10) Hypokalemia ?E87.6 - Hypokalemia (ICD-10) Sepsis ?A41.9 - Sepsis, unspecified organism (ICD-10) Pneumonia due to COVID-19 virus ?U07.1 - COVID-19 (ICD-10) ?J12.82 - Pneumonia due to coronavirus disease 2019 (ICD-10) GERD (gastroesophageal reflux disease) ?K21.9 - Gastro-esophageal reflux disease without esophagitis (ICD-10) Hyperlipidemia ?E78.5 - Hyperlipidemia, unspecified (ICD-10) BPH (benign prostatic hyperplasia) ?N40.0 - Benign prostatic hyperplasia without lower urinary tract symptoms (ICD-10) Small intestinal bacterial overgrowth ?K63.8219 - Small intestinal bacterial overgrowth, unspecified (ICD-10) Hepatic encephalopathy ?K76.82 - Hepatic encephalopathy (ICD-10) COPD (chronic obstructive pulmonary disease) ?J44.9 - Chronic obstructive pulmonary disease, unspecified (ICD-10) 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 - Quadriplegia, unspecified (ICD-10) Excessive salivation ?K11.7 - Disturbances of salivary secretion (ICD-10) Osteoporosis ?M81.0 - Age-related osteoporosis without current pathological fracture (ICD- 10) ADHD ?F90.9 - Attention-deficit hyperactivity disorder, unspecified type (ICD-10) Hypothyroidism ?E03.9 - Hypothyroidism, unspecified (ICD-10) Intellectual disability ?F79 - Unspecified intellectual disabilities (ICD-10) 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 General: The patient appears in no apparent distress. Patient is resting comfortably on cart. Skin: Warm, dry, no pallor noted. There is no rash noted. Head: Normocephalic, superficial laceration present on his superior posterior scalp area. It is slightly irregular and 1-1/2 cm in length Eye: Normal conjunctiva, no drainage Ears, Nose, Mouth, and Throat: oral mucosa is moist. Nares patent. Cardiovascular: Regular Rate and Rhythm Respiratory: Patient is in no distress, no accessory muscle use, lungs are clear to auscultation, no wheezing, rales or rhonchi Back: non-tender GI: nontender Musculoskeletal: passive range of motion of all four extremities seems to elicit no discomfort. No palpable tenderness Neurological: awake and looking around the room Psychiatric: not uncooperative Constitutional Vital Signs, click to edit/add: Last Vital Signs Temp 98.6 F 04/13/23 22:46 Pulse 95 H 04/13/23 22:46 Resp 18 04/13/23 22:46 BP 130/82 04/13/23 22:46 Pulse Ox 96 04/13/23 22:46 O2 Del Method Room Air 04/13/23 22:46 Course Vital Signs Vital signs: Vital Signs Temperature 98.6 F 04/13/23 22:46 Pulse Rate 95 H 04/13/23 22:46 Respiratory Rate 18 04/13/23 22:46 Blood Pressure 130/82 04/13/23 22:46 Pulse Oximetry 96 04/13/23 22:46 Oxygen Delivery Method Room Air 04/13/23 22:46 Temperature 98.6 F 04/13/23 22:46 Pulse Rate 95 H 04/13/23 22:46 Respiratory Rate 18 04/13/23 22:46 Blood Pressure 130/82 04/13/23 22:46 Pulse Oximetry 96 04/13/23 22:46 Oxygen Delivery Method Room Air 04/13/23 22:46 MDM - Head Injury MDM Narrative Medical decision making narrative: CTs are negative and he is released back to [facility]. Differential Diagnosis Differential diagnosis: Likely epidural hematoma, closed head injury, sub arachnoid hematoma, subdural hematoma and other (laceration) Imaging Data CT brain, CT C-spine: Radiologist's impression: Procedure: CT cervical spine wo con EXAM: CT cervical spine wo con HISTORY: fall from bed COMPARISON: 10/27/2022 TECHNIQUE: CT cervical spine without contrast. Multiplanar reformats obtained. The current study utilizes one or more of the following dose-reduction techniques: automated exposure control, iterative reconstruction, and/or manual adjustment of tube current and voltage for size. FINDINGS: Motion degraded exam. No evidence of acute fracture or traumatic malalignment. No prevertebral edema. Spinal canal neural foramen are grossly patent. Age expected degenerative changes. IMPRESSION: Motion degraded exam without gross evidence of acute traumatic injury. Electronically authenticated by: ELIZABET SOLANO Date: 04/13/2023 23:44 Procedure: CT head/brain wo con EXAM: CT head/brain wo con HISTORY: fall from bed COMPARISON: CT head from 10/27/2022. TECHNIQUE: Axial images of the brain were obtained from the skull base to the vertex without contrast enhancement. Sagittal and coronal reformations were provided. FINDINGS: There is a small scalp hematoma and associated soft tissue swelling at the right parietal vertex. Bone windows reveal no evidence of an underlying acute calvarial fracture. No acute intracranial hemorrhage, extra-axial fluid collection, midline shift or mass effect is seen. No space-occupying lesion is demonstrated. There is no evidence of hydrocephalus or an acute ischemic event. IMPRESSION: No CT evidence of an acute intracranial hemorrhage or acute ischemic event. Electronically authenticated by: KATI MEZA Date: 04/13/2023 23:41 Discharge Plan Discharge Chief Complaint: Head Injury Clinical Impression: Fall, Laceration of scalp Patient Disposition: Home, Self-Care Time of Disposition Decision: 23:51 Condition: Good Mode of Transportation: Private Vehicle Prescriptions / Home Meds: No Action alendronate 70 mg tablet 70 mg PO .COMPLEX Rx Instructions: 70 mg orally Every ; atorvastatin 10 mg tablet 10 mg PO DAILY budesonide 0.5 mg/2 mL suspension for nebulization 0.5 mg inhalation BID clobazam 10 mg tablet 10 mg PO BID docusate sodium [DOK] 100 mg tablet 200 mg PO DAILY felbamate 400 mg tablet 400 mg PO TID fenofibrate nanocrystallized 145 mg tablet 145 mg PO DAILY fluticasone propionate 50 mcg/actuation spray,suspension 2 spray INTRANASAL DAILY furosemide 20 mg tablet 20 mg PO DAILY glycopyrrolate 1 mg tablet 1 mg PO BID guaifenesin [Chest Congestion Relief] 400 mg tablet 400 mg PO BID ipratropium-albuterol 0.5 mg-3 mg(2.5 mg base)/3 mL solution for nebulization 3 ml INHALATION TID lactulose 10 gram/15 mL solution 60 g PO TID levetiracetam 500 mg tablet 500 mg PO DAILY Rx Instructions: take one tablet by mouth daily at bedtime with 750mg tablets to equal 2000mg levetiracetam 750 mg tablet 1,500 mg PO BID levothyroxine 150 mcg tablet 150 mcg PO DAILY Linzess 145 mcg capsule 145 mcg PO DAILY loratadine 10 mg tablet 10 mg PO DAILY magnesium oxide 400 mg (241.3 mg magnesium) tablet 400 mg PO DAILY montelukast 10 mg tablet 10 mg PO DAILY omeprazole 40 mg capsule,delayed release(DR/EC) 40 mg PO DAILY oxcarbazepine 300 mg tablet 300 mg PO BID oxcarbazepine 600 mg tablet 600 mg PO BID polyethylene glycol 3350 17 gram/dose powder 17 g PO DAILY tamsulosin 0.4 mg capsule 0.4 mg PO DAILY cholecalciferol (vitamin D3) 125 mcg (5,000 unit) capsule 125 mcg PO DAILY Xifaxan 550 mg tablet 550 mg PO BID [place] Saline Gel [place],Non-Aerosol 2 spray intranasal TID acetaminophen 325 mg capsule 650 mg PO Q4H PRN (Reason: fever or pain) acetaminophen 650 mg suppository 650 mg [place] Q4H PRN (Reason: fever) clonazepam 0.25 mg tablet,disintegrating 0.25 mg translingual Q12H PRN (Reason: as needed for cluster of 5 seizures) diazepam 5-7.5-10 mg kit 5 mg OR .COMPLEX PRN (Reason: if 3 or more seizures in 2hrs) Rx Instructions: 5 mg rectally may repeat in 2hrs as needed PRN; Linzess 145 mcg capsule 145 mcg PO DAILY albuterol sulfate 2.5 mg /3 mL (0.083 %) solution for nebulization 2.5 mg inhalation Q6H PRN (Reason: shortness of breath) Ultra Fresh PM Ointment 1 applic ophthalmic (eye) TID PRN (Reason: dry eye(s)) erythromycin 5 mg/gram (0.5 %) ointment 1 applic ophthalmic (eye) TID PRN (Reason: eye irritation) senna 8.6 mg capsule 17.2 mg PO BID PRN (Reason: constipation) Rx Instructions: IF NO BM IN 4 DAYS levofloxacin 500 mg Tablet 500 mg PO QD Qty: 7 0RF Instructions: Laceration (ED), Fall Prevention (ED) Additional Instructions: Sonya to be removed in ten days Stand Alone Forms: Portal Instructions Referrals: ERIKA VENTURA DO [Primary Care Provider] - 1 week Procedures ED Procedure Instructions Procedures Procedures: the following procedure was performed by me after topical anesthetic was applied to the laceration. The wound was cleansed with Betadine ?3 and closed with three sonya. No complications and he tolerated the procedure well.
--- NOTE | 2023-04-14 01:11 | PC.NURSE ---
dressing placed over radha to try to keep pt from pulling and rubbing these, will continue to monitor
== END 2023-04-14 01:51 | disposition home or self-care (01) ==
PROVIDERS: Emergency Provider Emergency Medicine; PCP Family Medicine
DX: S01.01XA Laceration without foreign body of scalp, initial encounter (principal); W06.XXXA Fall from bed, initial encounter; Z79.899 Other long term (current) drug therapy; Z86.16 Personal history of COVID-19; K21.9 Gastro-esophageal reflux disease without esophagitis; E78.5 Hyperlipidemia, unspecified; N40.0 Benign prostatic hyperplasia without lower urinary tract symptoms; Z87.01 Personal history of pneumonia (recurrent); J44.9 Chronic obstructive pulmonary disease, unspecified; M81.0 Age-related osteoporosis without current pathological fracture; F90.9 Attention-deficit hyperactivity disorder, unspecified type; E03.9 Hypothyroidism, unspecified; F79 Unspecified intellectual disabilities; G80.1 Spastic diplegic cerebral palsy; Q93.82 Williams syndrome; G40.909 Epilepsy, unspecified, not intractable, without status epilepticus
CPT/HCPCS: 12001; 70450; 72125; 99284

== ENCOUNTER 2023-05-10 16:18 | Inpatient (IN) | payer MEDICARE, MEDICAID, SELFPAY ==
[2023-05-10] VITALS (16 sets, daily range): BP systolic 95–129; BP diastolic 57–96; PULSE 103; RESP 26; TEMP 38–39.1; O2SAT 89–96; BMI 27.5
--- NOTE | 2023-05-10 16:24 | XR_ITS ---
The [address] [address] Patient Name: FRANCOIS LOPEZ MRN: [id number] date: 1980 Sex: M Assigned Patient Location: ED.MAIN Current Patient Location: ER Accession/Order Number: [id number] Exam Date: 05/10/2023 17:42 Report Date: 05/10/2023 18:05 At the request of: LALI COOK Procedure: XR chest 1V EXAM: XR chest 1V at 1738 hours HISTORY: fever COMPARISON: 02/13/2023 TECHNIQUE: AP supine portable chest x-ray FINDINGS: Shallow inspiration. The heart is borderline enlarged without vascular congestion. No acute infiltrate, effusion or pneumothorax is identified. A somewhat improved aeration at the lung bases since the prior study. An electronic device projects over the lateral chest wall on the left. The osseous structures are grossly intact. XR/XR chest 1V IMPRESSION: Shallow inspiration. No apparent acute infiltrate or overt cardiac decompensation. A follow-up study encouraging the patient to take a deep inspiration in the fully upright position may be helpful. Electronically authenticated by: GUANAKITO MEADE Date: 05/10/2023 18:05
--- NOTE | 2023-05-10 16:24 | ED_ITS ---
HPI - Fever General Chief Complaint: Seizure Stated Complaint: Fever Time Seen by Provider: 05/10/23 16:23 History of Present Illness HPI Narrative: 43-year-old male presents to Emergency Department for fever. It started apparently today. He is unable to provide any history. All the history is obtained from the paramedics and report from the [place] [facility]. He has a history of seizures and had at least one seizure today. He is nonverbal. Related Data Home Medications Medication Instructions Recorded Confirmed acetaminophen 325 mg capsule 650 mg PO Q4H PRN fever or pain 10/27/22 02/11/23 acetaminophen 650 mg rectal 650 mg MA Q4H PRN fever 10/27/22 02/11/23 suppository alendronate 70 mg tablet 70 mg PO .COMPLEX 10/27/22 02/11/23 atorvastatin 10 mg tablet 10 mg PO DAILY 10/27/22 02/11/23 budesonide 0.5 mg/2 mL suspension 0.5 mg inhalation BID 10/27/22 02/11/23 for nebulization cholecalciferol (vitamin D3) 125 125 mcg PO DAILY 10/27/22 02/11/23 mcg (5,000 unit) capsule clobazam 10 mg tablet 10 mg PO BID 10/27/22 02/11/23 clonazepam 0.25 mg disintegrating 0.25 mg translingual Q12H PRN as 10/27/22 02/11/23 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 diazepam 5 mg-7.5 mg-10 mg rectal 5 mg MA .COMPLEX PRN if 3 or more 10/27/22 02/11/23 kit seizures in 2hrs docusate sodium 100 mg tablet (DOK) 200 mg PO DAILY 10/27/22 02/11/23 felbamate 400 mg tablet 400 mg PO TID 10/27/22 02/11/23 fenofibrate nanocrystallized 145 145 mg PO DAILY 10/27/22 02/11/23 mg tablet fluticasone propionate 50 2 spray intranasal DAILY 10/27/22 02/11/23 mcg/actuation nasal spray,suspension furosemide 20 mg tablet 20 mg PO DAILY 10/27/22 02/11/23 glycopyrrolate 1 mg tablet 1 mg PO BID 10/27/22 02/11/23 guaifenesin 400 mg tablet (Chest 400 mg PO BID 10/27/22 02/11/23 Congestion Relief) ipratropium 0.5 mg-albuterol 3 mg 3 ml inhalation TID 10/27/22 02/11/23 (2.5 mg base)/3 mL nebulization soln lactulose 10 gram/15 mL oral 60 g PO TID 10/27/22 02/11/23 solution levetiracetam 500 mg tablet 500 mg PO DAILY 10/27/22 02/11/23 levetiracetam 750 mg tablet 1,500 mg PO BID 10/27/22 02/11/23 levothyroxine 150 mcg tablet 150 mcg PO DAILY 10/27/22 02/11/23 linaclotide 145 mcg capsule 145 mcg PO DAILY 10/27/22 02/11/23 (Linzess) loratadine 10 mg tablet 10 mg PO DAILY 10/27/22 02/11/23 magnesium oxide 400 mg (241.3 mg 400 mg PO DAILY 10/27/22 02/11/23 magnesium) tablet montelukast 10 mg tablet 10 mg PO DAILY 10/27/22 02/11/23 omeprazole 40 mg capsule,delayed 40 mg PO DAILY 10/27/22 02/11/23 release oxcarbazepine 300 mg tablet 300 mg PO BID 10/27/22 02/11/23 oxcarbazepine 600 mg tablet 600 mg PO BID 10/27/22 02/11/23 polyethylene glycol 3350 17 17 g PO DAILY 10/27/22 02/11/23 gram/dose oral powder rifaximin 550 mg tablet (Xifaxan) 550 mg PO BID 10/27/22 02/11/23 sodium chloride-aloe vera nasal 2 spray intranasal TID dry nasal 10/27/22 02/11/23 spray ([place] Saline Gel nasal spray) passages tamsulosin 0.4 mg capsule 0.4 mg PO DAILY 10/27/22 02/11/23 albuterol sulfate 2.5 mg/3 mL 2.5 mg inhalation Q6H PRN 02/11/23 02/11/23 (0.083 %) solution for nebulization shortness of breath artificial tears with lanolin eye 1 applic ophthalmic (eye) TID PRN 02/11/23 02/11/23 ointment (Ultra Fresh PM eye dry eye(s) ointment) erythromycin 5 mg/gram (0.5 %) eye 1 applic ophthalmic (eye) TID PRN 02/11/23 02/11/23 ointment eye irritation linaclotide 145 mcg capsule 145 mcg PO DAILY 02/11/23 02/11/23 (Linzess) sennosides 8.6 mg capsule (senna) 17.2 mg PO BID PRN constipation 02/11/23 02/11/23 Previous Rx's Medication Instructions Recorded levofloxacin 500 mg tablet 500 mg PO QD #7 tabs 02/13/23 Allergies Allergy/AdvReac Type Severity Reaction Status Date / Time amoxicillin [From Augmentin] Allergy Verified 10/27/22 20:47 clavulanic acid Allergy Verified 10/27/22 20:47 [From Augmentin] Pertussis Vaccines Allergy Verified 10/27/22 20:47 phenytoin [From Dilantin] Allergy Verified 10/27/22 20:47 promethazine [From Phenergan] Allergy Verified 10/27/22 20:47 Review of Systems ROS Narrative unobtainable, nonverbal [facility] Medical History (Updated 05/10/23 @ 18:48 by Moreno Ackerman MD) Acute respiratory failure due to COVID-19 ?U07.1 - COVID-19 (ICD-10) ?J96.00 - Acute respiratory failure, unspecified whether with hypoxia or hypercapnia (ICD-10) Hypokalemia ?E87.6 - Hypokalemia (ICD-10) Sepsis ?A41.9 - Sepsis, unspecified organism (ICD-10) Pneumonia due to COVID-19 virus ?U07.1 - COVID-19 (ICD-10) ?J12.82 - Pneumonia due to coronavirus disease 2019 (ICD-10) GERD (gastroesophageal reflux disease) ?K21.9 - Gastro-esophageal reflux disease without esophagitis (ICD-10) Hyperlipidemia ?E78.5 - Hyperlipidemia, unspecified (ICD-10) BPH (benign prostatic hyperplasia) ?N40.0 - Benign prostatic hyperplasia without lower urinary tract symptoms (ICD-10) Small intestinal bacterial overgrowth ?K63.8219 - Small intestinal bacterial overgrowth, unspecified (ICD-10) Hepatic encephalopathy ?K76.82 - Hepatic encephalopathy (ICD-10) COPD (chronic obstructive pulmonary disease) ?J44.9 - Chronic obstructive pulmonary disease, unspecified (ICD-10) 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 - Quadriplegia, unspecified (ICD-10) Excessive salivation ?K11.7 - Disturbances of salivary secretion (ICD-10) Osteoporosis ?M81.0 - Age-related osteoporosis without current pathological fracture (ICD- 10) ADHD ?F90.9 - Attention-deficit hyperactivity disorder, unspecified type (ICD-10) Hypothyroidism ?E03.9 - Hypothyroidism, unspecified (ICD-10) Intellectual disability ?F79 - Unspecified intellectual disabilities (ICD-10) 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 General: The patient in no apparent distress. Patient is resting comfortably on cart. Skin: Warm, dry, no pallor noted. There is no rash noted. Head: Normocephalic, atraumatic Eye: Normal conjunctiva, no drainage Ears, Nose, Mouth, and Throat: oral mucosa is moist. Nares patent. Cardiovascular: Regular Rate and Rhythm Respiratory: Patient is in no distress, no accessory muscle use, lungs are clear to auscultation, no wheezing, rales or rhonchi GI: soft and nontender Musculoskeletal: some contractures are noted. Neurological: awake, nonverbal Psychiatric: cannot be assessed Constitutional Vital Signs, click to edit/add: Last Vital Signs Temp 102.3 F H 05/10/23 18:37 Pulse 103 H 05/10/23 16:23 Resp 26 H 05/10/23 16:23 BP 98/61 05/10/23 18:08 Pulse Ox 93 L 05/10/23 18:07 O2 Del Method Room Air 05/10/23 16:23 Course Vital Signs Vital signs: Vital Signs Temperature 101.2 F H 05/10/23 16:23 Pulse Rate 103 H 05/10/23 16:23 Respiratory Rate 26 H 05/10/23 16:23 Blood Pressure 114/62 05/10/23 16:23 Pulse Oximetry 96 05/10/23 16:23 Oxygen Delivery Method Room Air 05/10/23 16:23 Temperature 102.3 F H 05/10/23 18:37 Pulse Rate 103 H 05/10/23 16:23 Respiratory Rate 26 H 05/10/23 16:23 Blood Pressure 98/61 05/10/23 18:08 Pulse Oximetry 93 L 05/10/23 18:07 Oxygen Delivery Method Room Air 05/10/23 16:23 MDM - Fever MDM Narrative Medical decision making narrative: WBC is mildly elevated at fifteen thousand. He was given rectal Tylenol. Covid and influenza testing is negative. Chest x-ray shows no infiltrate. CT of the brain is pending as well as urinalysis and the patient is signed out to Dr. Pena. Differential Diagnosis Differential diagnosis: Likely fever of unknown origin, community acquired pneumonia, viral infection, influenza and other (Covid, urinary tract infection) Lab Data Attestation: I reviewed the patient's lab results. Labs: Lab Results 05/10/23 05/10/23 Range/Units 16:45 16:50 WBC 15.4 H (4.0-11.0) 10^3/uL RBC 3.85 L (4.70-6.10) 10^6/uL Hgb 12.1 L (14.0-18.0) g/dL Hct 37.1 L (42.0-54.0) % MCV 96.4 H (80.0-94.0) fL MCH 31.4 (25.9-34.0) pg MCHC 32.6 (29.9-35.2) g/dL RDW 13.1 (11.0-15.0) % Plt Count 301 (150-450) 10^3/uL MPV 10.1 (9.5-13.5) fL Neut % (Auto) 79.1 H (43.0-75.0) % Lymph % (Auto) 12.0 L (20.5-60.0) % [place] % (Auto) 8.1 (1.7-12.0) % Eos % (Auto) 0.0 L (0.9-7.0) % Baso % (Auto) 0.5 (0.2-2.0) % Neut # (Auto) 12.2 H (1.4-6.5) 10^3/uL Lymph # (Auto) 1.9 (1.2-3.8) 10^3/uL [place] # (Auto) 1.3 H (0.3-0.8) 10^3/uL Eos # (Auto) 0.0 (0.0-0.7) 10^3/uL Baso # (Auto) 0.1 (0.0-0.1) 10^3/uL Abs Immat Gran (auto) 0.05 H (0.00-0.03) 10^3/uL Imm/Tot Granulo (auto) 0.3 (0.0-0.5) % Sodium 134 L (136-145) mmol/L Potassium 3.9 (3.5-5.1) mmol/L Chloride 98 (98-107) mmol/L Carbon Dioxide 26.3 (21.0-32.0) mmol/L Anion Gap 13.6 BUN 8.0 (7.0-18.0) mg/dL Creatinine 0.69 L (0.70-1.30) mg/dL Est GFR ( Amer) >60 (>=60) Est GFR (Non-Af Amer) >60 (>=60) BUN/Creatinine Ratio 11.6 Glucose 88 (74-106) mg/dL Calcium 8.9 (8.5-10.1) mg/dL Influenza Type A Ag Negative Influenza Type B Ag Negative SARS-CoV-2 Ag (CV2AG) Negative (NEGATIVE) Imaging Data Chest x-ray: Radiologist's impression: ITS Impressions Chest X-Ray 05/10/23 16:24 IMPRESSION: Shallow inspiration. No apparent acute infiltrate or overt cardiac decompensation. A follow-up study encouraging the patient to take a deep inspiration in the fully upright position may be helpful. Electronically authenticated by: GUANAKITO MEADE Date: 05/10/2023 18:05 Discharge Plan Discharge Patient Disposition: Still a Patient
[2023-05-10] MEDS: ACETAMINOPHEN 650 MG RECTAL SUPPOSITORY PR (16:39)
--- OUTSIDE RECORDS SUMMARY | 2023-05-10 16:54 | XMS_ITS | CCD ---
Author Name Unknown Address [address] [place] [address] Organization [facility] Care Team Providers Care Winding Department Supervisor Name Role Phone FAM VENTURA Primary Care Physician [phone] PROVIDER, UNKNOWN Attending Unavailable PROVIDER, UNKNOWN Admitting Unavailable Abundio Mares DDS Unavailable LeonelAntionette Unavailable VENTURA, DR FAM Duran Attending Unavailable VENTURA, DR FAM Duran Admitting Unavailable VENTURA, DR FAM Duran Primary Care Unavailable VENTURA, DR FAM Duran Consulting Unavailable LUE ., ARLINE Schwarz Attending Unavailable LUE .ARLINE Admitting Unavailable VENTURA, DR FAM Duran Consulting Unavailable VENTURA, DR FAM Duran Primary Care Unavailable ZIEBER, DR KRISTIAN Galvez Consulting Unavailable VENTURA, DR FAM Duran Consulting Unavailable VENTURA, DR FAM Duran Admitting Unavailable VENTURA, DR FAM Duran Primary Care Unavailable VENTURA, DR FAM Duran Attending Unavailable VENTURA, DR FAM Duran Admitting Unavailable VENTURA, DR FAM Duran Consulting Unavailable VENTURA, DR FAM Duran Primary Care Unavailable VENTURA, DR FAM Duran Attending Unavailable VENTURA, DR FAM Duran Admitting Unavailable VENTURA, DR FAM Duran Consulting Unavailable VENTURA, DR FAM Duran Primary Care Unavailable VENTURA, DR FAM Duran Attending Unavailable VENTURA, DR FAM Duran Primary Care Unavailable LOYA ., DR BRIDGET Jones Consulting Unavailable LOYA ., DR BRIDGET Jones Attending Unavailable LOYA ., DR BRIDGET Jones Admitting Unavailable NADERER, DR CHELE Duran Consulting Unavailable VALERYCHBESSIE .IDRIS Consulting Unavailsusan BURGER ., DR FIELDS Consulting Unavailable TROTTI, MALKA Consulting Unavailable RILEY, SOPHIA Consulting Unavailable JBARA, YASER Consulting Unavailable VENTURA, DR FAM Duran Primary Care Unavailable NADERELeonor, DR CHELE Duran Consulting Unavailable NADERER, DR CHELE Duran Attending Unavailable NADERER, DR CHELE Duran Admitting Unavailable BROWN, ANICETO Consulting Unavailable DIAB ., EMIL Consulting Unavailable TAJ, DR FRIAS Admitting Unavailable TAJ, DR FRIAS Attending Unavailable VENTURA, DR FAM Duran Primary Care Unavailable VENTURA, DR FAM Duran Consulting Unavailable TAJ, DR FRIAS Consulting Unavailable VENTURA, DR FAM Duran Admosiris Unavailable VENTURA, DR FAM Duran Primary Care Unavailable VENTURA, DR FAM Duran Consulting Unavailable VENTURA, DR FAM Duran Attending Unavailable Klipper, Aniceto Consulting Unavailable TAJ, DR FRIAS Attending Unavailable VENTURA, DR FAM Duran Primary Care Unavailable TAJ, DR FRIAS Admitting Unavailable VENTURA, DR FAM Duran Admitting Unavailable VENTURA, DR FAM Duran Consulting Unavailable VENTURA, DR FAM Duran Primary Care Unavailable VENTURA, DR FAM Duran Attending Unavailable DAVIESMARGARITO Consulting Unavailable VENTURA, DR FAM Duran Admitting Unavailable VENTURA, DR FAM Duran Consulting Unavailable VENTURA, DR FAM Duran Primary Care Unavailable VENTURA, DR FAM Duran Attending Unavailable VENTURA, DR FAM Duran Attending Unavailable VENTURA, DR FAM Duran Admitting Unavailable VENTURA, DR FAM Duran Primary Care Unavailable VENTURA, DR FAM Duran Consulting Unavailable VENTURA, DR FAM Duran Admitting Unavailable VENTURA, DR FAM Duran Primary Care Unavailable VENTURA, DR FAM Duran Attending Unavailable VENTURA, DR FAM Duran Consulting Unavailable DANIELABBI Consulting Unavailable DANIELABBI Attending Unavailable DANIELABBI Admitting Unavailable EVNTURA, DR FAM Duran Primary Care Unavailable BRITTON FONTENOT Consulting Unavailable JAMIE ALICIA Consulting Unavailable VENTURA, DR FAM Duran Primary Care Unavailable CRISTI .FRANCOIS Attending Unavailable CRISTI ., FRANCOIS Admitting Unavailable ALICE .IDRIS Consulting Unavailsusan jones NEFPAULINO, GUANAKITO Consulting Unavailable SHARMILA .ANJELICA Consulting Unavailable SHARMILA .ANJELICA Attending Unavailable VENTURA, DR FAM Duran Primary Care Unavailable SHARMILA ., ANJELICA Admitting Unavailable HAY ., DR FIELDS Consulting Unavailable HAY ., DR FIELDS Attending Unavailable VENTURA, DR FAM Duran Primary Care Unavailable HAY ., DR FIELDS Admitting Unavailable KlipperAniceto Consulting Unavailable Arline Levine Attending Unavailable VENTURA, FAM Referring Unavailable VENTURA, FAM Attending Unavailable VENTURA, FAM Admitting Unavailable Allergies Allergy Classification Reported Allergen(s) Allergy Type Date of Onset Reaction(s) Facility (8 sources) Amoxicillin / Clavulanate; Translations: [amoxicillin-clav ulanate] Drug Allergy Unknown [facility] (8 sources) Phenytoin; Translations: [phenytoin] Drug Allergy Unknown [facility] (11 sources) Promethazine; Translations: [promethazine] Drug Allergy 7 Unknown [facility] (3 sources) Phenytoin; Translations: [PHENYTOIN SODIUM EXTENDED] Drug Allergy 7 [facility] (3 sources) AMOXICILLIN-POT CLAVULANATE; Translations: [AMOXICILLIN-POT CLAVULANATE] Propensity to adverse reactions to drug (disorder) 7 [facility] (1 source) 4-Aminobenzoic Acid Drug Allergy [facility] Repository (1 source) Amoxicillin / Clavulanate Drug Allergy 4 [facility] (1 source) Levamisole Drug Allergy 4 [facility] (1 source) metroNIDAZOLE Drug Allergy [facility] Rep[facility] (1 source) Phenytoin Drug Allergy 4 [facility] (1 source) remdesivir (investigational use) Drug allergy (disorder) [facility] Rep[facility] Medications Current Medications Medication Drug Class(es) Dates Sig (Normalized) Sig (Original) Acetaminophen (4 sources) Start: 12-16-2022 acetaminophen Refills(s) 0 Start Date: 12/16/22 Status: Ordered take 1 tablet by rebecca th every six hours as needed Acetaminophen 325 MG 1 tablet as needed Orally every 6 hrs Active Albuterol (4 sources) beta2-Adrenergic Agonist Start: 07-04-2015 albut jessica 0.083% Inh Cassie 3 mL UD Inhalation, As Directed Shortness of breath or wheezing, Refill(s) 0, Shortness of breath or wheezing Start Date: 07/04/15 Status: Ordered Start: 07-04-2015 albuterol 0.08 3% Inh Cassie 3 mL UD Inhalation, As Directed Shortness of breath or wheezing, Refill(s) 0, Shortness of breath or wheezing Start Date: 07/04/15 Status: Ordered albuterol 0.833 mg/ml / ipratropium bromide 0.167 mg/ml inhalation solution (3 sources) Anticholinergic, beta2-Adrenergic Agonist Start: 01-01-2015 take 3 mL by inhalation three times daily Ipratropium-Albuterol 0.5-2.5 (3) MG/3ML 3 ml Inhalation Three times a day Dec, Active Albuterol Sulfate (2.5 MG/ 3 ML) 2.5 MG/3ML 0.083% Nebulization Solution (3 sources) Start: 05-14-2015 Albuterol Sulfate (2.5 MG/ 3 ML) 2.5 MG/3ML 0.083% Nebulization Solution 3ml Inhalation qid as needed Apr, Active alendronic acid 70 mg oral tablet (9 sources) Bisphosphonate Start: 07-04-2015 alendronate Tab 70 mg, Oral, Wednesday, Refills(s) 0, Other (see comment) Start Date: 07/04/15 Status: Ordered Start: 07-04-2015 alendronate Ta b 70 mg, Oral, Wednesday, Refills(s) 0, Other (see comment) Start Date: 07/04/15 Status: Ordered Allergy Relief (4 sources) Start: 07-04-2015 take 50 mg by mouth once daily Allergy Relief 50 mg, Oral, Daily, Refills(s) 0, Allergy symptoms Start Date: 07/04/15 Status: Ordered Artificial Tears preserved ophthalmic solution (4 sources) Start: 10-22-2021 Artificial Tea rs preserved ophthalmic solution Eye-Both, QID, Refill(s) 0 Start Date: 10/22/21 Status: Ordered Ascorbic Acid (7 sources) Vitamin C Start: 10-22-2021 Vitamin C Toby y, Refills(s) 0 Start Date: 10/22/21 Status: Ordered take 1 tablet by rebecca th every twenty-four hours Vitamin C 500 MG 1 tablet Orally Once a day Active atorvastatin 10 mg oral tablet (9 sources) HMG-CoA Reductase Inhibitor Start: 07-04-2015 take 10 mg by mouth once daily atorvastatin 10 mg, Oral, Daily, Refills(s) 0, High cholesterol Start Date: 07/04/15 Status: Ordered azelastine hydrochloride 0.137 mg/actuat metered dose nasal spray (5 sources) Histamine-1 Receptor Antagonist Start: 07-04-2015 azelastine nasal 137 mcg/inh spray 2 spray(s), Nasal, As Directed Allergy symptoms, Refill(s) 0, Allergy symptoms Start Date: 07/04/15 Status: Ordered take 1 puff(s) nasal route twice daily Azelastine HCl 137 MCG/SPRAY 1 puff in each nostril Nasally Twice a day Active azelastine nasal 137 mcg/inh spray (2 sources) Start: 07-04-2015 azelastine nasal 137 mcg/inh spray 2 spray(s), Nasal, As Directed Allergy symptoms, Refill(s) 0, Allergy symptoms Start Date: 07/04/15 Status: Ordered Enemeez Plus (4 sources) Standardized Chemical Allergen Start: 07-05-2015 Enemeez Plus 1 coleen, Rectal, Daily as needed for constipation, Refill(s) 0 Start Date: 07/05/15 Status: Ordered benzonatate 100 mg oral capsule (3 sources) Non-narcotic Antitussive take 1 capsule by mouth every eight hours Benzonatate 100 MG 1 capsule as needed Orally Three times a day Active budesonide 0.25 mg/ml inhalation suspension (4 sources) Corticosteroid Start: 12-16-2022 take 0.5 mg by inhalation twice daily budesonide 0.5 mg/2 mL Inh Susp 0.5 mg = 2 mL, NEB, BID, # 120 mL, Refills(s) 0 Start Date: 12/16/22 Status: Ordered take 2 mL by inhalation twice da rasheeda Pulmicort 0.5 MG/2ML 2 ml Inhalation Twice a day Active calcium carbonate 1250 mg / cholecalciferol 200 unt oral tablet (1 source) Vitamin D take 1 tablet by mouth every twenty-four hours Oyster Shell Calcium + D 500-200 MG-UNIT 1 tablet with food Orally Once a day Active clindamycin 300 mg oral capsule (2 sources) Lincosamide Antibacterial Start: 020 take 1 capsule by mouth three times daily clindamycin (CLEOCIN) 300 MG capsule TAKE 1 CAPSULE BY MOUTH 3 TIMES DAILY FOR 7 DAYS. 21 Capsule 0 02/29/2020 Active cloBAZam 10 mg oral tablet (9 sources) Benzodiazepine Start: take 10 mg by mouth twice daily Onfi 10 mg, Oral, BID, Refills(s) 0, Seizure Start Date: 07/04/15 Status: Ordered clonazePAM 0.25 mg disintegrating oral tablet (3 sources) Benzodiazepine take 1 tablet by mouth every twelve hours clonazePAM 0.25 MG 1 tablet on the tongue and allow to dissolve Orally Twice a day Active Cough and Chest Congestion (4 sources) Start: Cough and Chest Congestion Refill(s) 0 Start Date: 10/22/21 Status: Ordered 4 ml diazePAM 5 mg/ml rectal gel (8 sources) Benzodiazepine Start: take 1 mg rectal route once Diastat AcuDial adult mg, Rectal, Once, Refills(s) 0 Start Date: 10/22/21 Status: Ordered Start: 07-05-2015 diazepam 10 mg , Rectal, PRN Seizure, Refills(s) 0 Start Date: 07/05/15 Status: Ordered docusate sodium 100 mg oral capsule (7 sources) Start: 10-22-2021 take 1 capsule by mo uth twice daily as needed for constipation docusate sodium 100 mg Cap 100 mg = 1 cap(s), Oral, BID, PRN for constipation, # 20 cap(s), Refills(s) 0 Start Date: 10/22/21 Status: Ordered take 1 capsule by mo ut every twenty-four hours Docusate Sodium 100 MG 1 capsule as needed Orally Once a day Active doxycycline hyclate 100 mg oral capsule (4 sources) Tetracycline-class Drug Start: 10-22-2021 take 1 mg by mouth twice daily doxycycline hyclate 100 mg Cap mg cap(s), Oral, BID, Refills(s) 0 Start Date: 10/22/21 Status: Ordered Erythromycin (4 sources) Macrolide, Macrolide Antimicrobial Start: 07-05-2015 erythromycin topical Rash, Refill(s) 0, tid to rash as needed Start Date: 07/05/15 Status: Ordered felbamate 400 mg oral tablet (9 sources) Anti-epileptic Agent Start: 02-23-2020 take 1 mg by mouth three times daily felbamate 400 mg oral tablet mg tab(s), Oral, TID, Refills(s) 0 Start Date: 10/22/21 Status: Ordered fenofibrate 145 mg oral tablet (4 sources) Peroxisome Proliferator Receptor alpha Agonist Start: 10-22-2021 take 1 mg by mouth once daily fenofibrate 145 mg Tab mg tab(s), Oral, Daily, Refills(s) 0 Start Date: 10/22/21 Status: Ordered fluticasone furoate 0.05 MG/ACTUAT Dry Powder Inhaler (9 sources) Corticosteroid Start: 10-22-2021 fluticasone furoate 50 mcg inhalation powder Inhalation, q24hr, Refills(s) 0 Start Date: 10/22/21 Status: Ordered Start: 02-26-2020 fluticasone (F LONASE) 50 mcg/act nasal inhaler take 1 spray(s) nasa l route once daily Fluticasone Propionate 50 MCG/ACT 1 spray in each nostril Nasally Once a day Active furosemide 20 mg oral tablet (9 sources) Loop Diuretic Start: 02-23-2020 take 1 mg by mouth once daily furosemide 20 mg Tab mg tab(s), Oral, Daily, Refills(s) 0 Start Date: 10/22/21 Status: Ordered glycopyrrolate 1 mg oral tablet (7 sources) Start: 10-22-2021 take 1 tablet by mouth three times daily glycopyrrolate 1 mg oral tablet mg tab(s), Oral, TID, Refills(s) 0 Start Date: 10/22/21 Status: Ordered guaiFENesin 400 mg oral tablet (1 source) Start: 12-16-2022 guaifenesin 400 mg oral tablet Refills(s) 0 Start Date: 12/16/22 Status: Ordered hydrocortisone 25 mg/ml rectal cream (1 source) Corticosteroid Start: 12-16-2022 hydrocortisone 2.5% Rectal Crm w/Appl 1 coleen, Rectal, BID, 30 gram, Refill(s) 0 Start Date: 12/16/22 Status: Ordered Ipratropium (5 sources) Anticholinergic Start: 12-16-2022 ipratropium mcg, QID Start Date: 12/16/22 Status: Ordered Start: 10-22-2021 take 1 ug by inhalat ion four times daily ipratropium 0.02% inhalation solution mcg mL, NEB, QID, Refills(s) 0 Start Date: 10/22/21 Status: Ordered Start: 10-22-2021 take 1 ug by inhalat ion four times daily ipratropium 0.02% inhalation solution mcg mL, NEB, QID, Refills(s) 0 Start Date: 10/22/21 Status: Ordered ketoconazole 20 mg/ml topical cream (4 sources) Azole Antifungal Start: 07-05-2015 ketoconazole Top 2% Crm 1 coleen, Topical, BID, Refill(s) 0, Rash Start Date: 07/05/15 Status: Ordered lactulose 667 mg/ml oral solution (12 sources) Osmotic Laxative Start: 10-22-2021 Enulose 10 g/ 15 mL oral and rectal liquid gm mL, Refills(s) 0 Start Date: 10/22/21 Status: Ordered Start: 02-19-2020 lactulose 10 g /15 mL oral solution Start: 07-04-2015 lactulose 40 g marlena, Oral, QID, Refills(s) 0, Other (see comment) Start Date: 07/04/15 Status: Ordered take 15 mL by mouth once daily L actulose 10 GM/15ML 15 ml Orally Once a day Active levETIRAcetam 750 mg oral tablet (9 sources) Start: 07-04-2015 take 750 mg by mouth twice daily Keppra 750 mg, Oral, BID, Refills(s) 0, Seizure Start Date: 07/04/15 Status: Ordered take 2 tablets by mo [facility] in the morning, then take 3 tablets by mouth at bedtime levETIRAcetam 500 mg 2 tablet in am and 3 tabs at hs Orally As Directed Active levothyroxine sodium 0.1 mg oral tablet (11 sources) l-Thyroxine Start: 02-23-2020 levothyroxine (SYNTHROID) 100 MCG tablet Start: 02-23-2020 levothyroxine (SYNTHROID) 50 MCG tablet Start: 07-04-2015 levothyroxine 150 microgram, Oral, Daily, Refills(s) 0, Thyroid Start Date: 07/04/15 Status: Ordered take 1 tablet by rebecca every twenty-four hours Levothyroxine Sodium 150 MCG 1 tablet Orally Once a day Active linaclotide 0.145 mg oral capsule (10 sources) Guanylate Cyclase-C Agonist Start: 12-16-2022 Linzess 145 mcg oral capsule Start Date: 12/16/22 Status: Ordered Start: 02-23-2020 Linzess 145 MC G CAPS capsule Start: 07-05-2015 Linzess 145 mi crogram, Oral, Daily, PRN Constipation, Refills(s) 0 Start Date: 07/05/15 Status: Ordered Linzess 145 145m cg 1 PO Every AM Active loratadine 10 mg oral tablet (1 source) Start: 12-16-2022 loratadine 10 mg Tab Start Date: 12/16/22 Status: Ordered 24 hr loratadine 10 mg / pseudoephedrine sulfate 240 mg extended release oral tablet (3 sources) alpha-Adrenergi c Agonist take 1 tablet by mouth every twenty-four hours Allergy Relief D-24 10-240 MG 1 tablet as needed Orally Once a day Active magnesium oxide 400 mg oral tablet (4 sources) Start: 12-16-2022 magnesium oxid e 400 mg Tab Start Date: 12/16/22 Status: Ordered Start: 10-22-2021 take 1 mg by mouth once daily magnesium oxide 400 mg Tab mg tab(s), Oral, Daily, Refills(s) 0 Start Date: 10/22/21 Status: Ordered melatonin 5 mg oral tablet (4 sources) Start: 10-22-2021 take 1 tablet by mouth once daily at bedtime as needed melatonin 5 mg oral tablet 5 mg = 1 tab(s), Oral, Once a day (at bedtime), PRN for insomnia, # 60 tab(s), Refills(s) 0 Start Date: 10/22/21 Status: Ordered metoprolol tartrate 50 mg oral tablet (3 sources) beta-Adrenergic Rachelle take 1 tablet by mouth every twelve hours Metoprolol Tartrate 50 MG 1 tablet Orally Twice a day Active Miconazole (3 sources) Azole Antifungal Start: 10-22-2021 Umesh Antifungal Topical, BID, Refill(s) 0 Start Date: 10/22/21 Status: Ordered montelukast 10 mg oral tablet (7 sources) Leukotriene Receptor Antagonist Start: 10-22-2021 take 1 mg by mouth once daily Singulair 10 mg Tab mg tab(s), Oral, Daily, Refills(s) 0 Start Date: 10/22/21 Status: Ordered Multivitamin preparation (3 sources) Multivitamin Orally Active multivitamin with iron (4 sources) Start: 10-22-2021 multivitamin with iron mL, Refill(s) 0 Start Date: 10/22/21 Status: Ordered mupirocin 0.02 mg/mg topical ointment (3 sources) RNA Synthetase Inhibitor Antibacterial Start: 10-22-2021 mupirocin Top 2% Oint Topical, TID, Refill(s) 0 Start Date: 10/22/21 Status: Ordered Normal saline (7 sources) Start: 07-05-2015 [place] Saline Nasal Gel Nasal, TID, Refill(s) 0, Dry nasal passages Start Date: 07/05/15 Status: Ordered [place] Saline Nasal Gel Nasally Active omeprazole 40 mg delayed release oral capsule (9 sources) Proton Pump Inhibitor Start: 02-23-2020 take 1 mg by mouth once daily omeprazole 40 mg Cap-DR mg cap(s), Oral, Daily, Refills(s) 0 Start Date: 10/22/21 Status: Ordered OXcarbazepine 600 mg oral tablet (15 sources) Anti-epileptic Agent Start: 02-23-2020 take 1 mg by mouth twice daily oxcarbazepine 600 mg Tab mg tab(s), Oral, BID, Refills(s) 0 Start Date: 10/22/21 Status: Ordered Start: 07-05-2015 take 300 mg by mouth once toby y Trileptal 300 mg, Oral, Daily, Refills(s) 0, Seizure Start Date: 07/05/15 Status: Ordered Oyster Shell Calcium + D 500-200 MG-UNIT (2 sources) take 1 tablet by mouth once daily at mealtime Oyster Shell Calcium + D 500-200 MG-UNIT 1 tablet with food Orally Once a day Active Oyster Shell Calcium with Vitamin D (4 sources) Start: 016 Oyster Shell Calcium with Vitamin D Refill(s) 0, 1 tab bid, Prophylaxis Start Date: 07/05/15 Status: Ordered [id number] oral powder for reconstitution (1 source) Start: 023 [id number] oral powder for reconstitution Start Date: 12/16/22 Status: Ordered polyethylene glycol 3350 12473 mg powder for oral solution (4 sources) Osmotic Laxative Start: 016 polyethylene glycol 3350 17 gram packet 17 gram, Oral, Daily, Refills(s) 0, Constipation Start Date: 07/05/15 Status: Ordered rifAXIMin 550 mg oral tablet (1 source) Rifamycin Antibacterial Start: 023 take 1 tablet by mouth twice daily Xifaxan 550 mg oral tablet 550 mg = 1 tab(s), Oral, BID, # 60 tab(s) Start Date: 12/16/22 Status: Ordered Senna Leaves (4 sources) Start: 022 Senna 8.6 mg oral tablet 17.2 mg, 2 tab(s), Oral, Once a day (at bedtime) for constipation, 100 tab(s), Refill(s) 0 Start Date: 10/22/21 Status: Ordered sertraline 25 mg oral tablet (3 sources) Serotonin Reuptake Inhibitor take 1 tablet by mouth every twenty-four hours Sertraline HCl 25 MG 1 tablet Orally Once a day Active tamsulosin hydrochloride 0.4 mg oral capsule (7 sources) alpha-Adrenergic Rachelle Start: 016 take 0.4 mg by mouth once daily tamsulosin 0.4 mg, Oral, Daily, Refills(s) 0, Bladder problems Start Date: 07/04/15 Status: Ordered divalproex sodium 125 mg delayed release oral capsule (11 sources) Mood Stabilizer, Anti-epileptic Agent Start: 020 divalproex (DEPAKOTE) 250 MG enteric coated tablet Start: 02-23-2020 take 1 mg by mouth t hree times daily divalproex sodium 125 mg Cap-EC mg cap(s), Oral, TID, Refills(s) 0 Start Date: 10/22/21 Status: Ordered Vitamin D3 5000 intl units o ral capsule (1 source) Start: 12-16-2022 Vitamin D3 500 0 intl units oral capsule Start Date: 12/16/22 Status: Ordered Problems Active Problems Problem Classification Problem Date Documented Da te Episodic/Chronic Attention-deficit, conduct, and disruptive behavior disorders (4 sources) Attention deficit hyperactivity disorder, predominantly inattentive type 12-16-2010 Chronic Attention-deficit, conduct, and disruptive behavior disorders (1 source) Attention-deficit hyperactivity disorder, unspecified type; Translations: [ADHD UNSPECIFIED TYPE] Onset: 08-05-2022 Chronic Chronic obstructive pulmonary disease and bronchiectasis (10 sources) Chronic obstructive lung disease; Translations: [Chronic obstructive pulmonary disease, unspecified] Onset: 12-23-2021 Resolved: 12-23-2021 Chronic Developmental disorders (7 sources) Severe intellectual disability; Translations: [Mental handicap] Onset: 02-22-2020 06-30-2013 Chronic Disorders of lipid metabolism (1 source) Hyperlipidemia, unspecified; Translations: [HYPERLIPIDEMIA UNSPECIFIED] Onset: 08-05-2022 Chronic E Codes: Adverse effects of medical drugs (1 source) Adverse effect of other antiepileptic and sedative-hypnotic drugs, initial encounter; Translations: [ADVRS EFF OTH ANTIEPI SED RX INIT] Onset: 08-05-2022 Episodic Epilepsy; convulsions (5 sources) Epilepsy, unspecified, not intractable, without status epilepticus; Translations: [EPILEPSY UNS NOT INTRACT W/O SE] Onset: 04-22-2022 Chronic Epilepsy; convulsions (8 sources) Seizure disorder; Translations: [Unspecified convulsions] Onset: 01-18-2022 06-30-2013 Episodic Esophageal disorders (1 source) Gastro-esophageal reflux disease without esophagitis; Translations: [GERD WITHOUT ESOPHAGITIS] Onset: 08-05-2022 Chronic Genitourinary congenital anomalies (7 sources) Retractile testis; 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] Onset: 10-22-2021 Chronic Genitourinary symptoms and ill-defined conditions (4 sources) Unspecified urinary incontinence; Translations: [Intermittent urinary incontinence] Onset: 10-22-2021 Chronic Hyperplasia of prostate (1 source) Benign prostatic hyperplasia without lower urinary tract symptoms; Translations: [BENIGN PROSTATIC HYPRPLASIA WO LUTS] Onset: 08-05-2022 Chronic Malaise and fatigue (1 source) Other fatigue; Translations: [OTHER FATIGUE] Onset: 06-09-2022 Episodic Menopausal disorders (1 source) Hormone replacement therapy; Translations: [HORMONE REPLACEMENT THERAPY] Onset: 08-05-2022 Episodic Mycoses (4 sources) Onychomycosis 06-30-2013 Episodic Nutritional deficiencies (1 source) Vitamin D deficiency, unspecified; Translations: [VITAMIN D DEFICIENCY UNSPECIFIED] Onset: 04-01-2022 Chronic Osteoporosis (9 sources) Osteoporosis; Translations: [Age-related osteoporosis without current pathological fracture] Onset: 11-20-2021 06-30-2013 Chronic Other aftercare (5 sources) Other senior living (current) drug therapy; Translations: [OTH HALF-WAY CURRENT DRUG THERAPY] Onset: 06-03-2022 Episodic Other congenital anomalies (1 source) Tristen syndrome; 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] Onset: 08-05-2022 Chronic Other diseases of kidney and ureters (1 source) 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; Translations: [Cyst of kidney, acquired] Onset: 10-22-2021 Episodic Other gastrointestinal disorders (1 source) Other constipation; Translations: [OTHER CONSTIPATION] Onset: 07-29-2022 Episodic Other liver diseases (1 source) Hepatic encephalopathy; Translations: [HEPATIC ENCEPHALOPATHY] Onset: 08-05-2022 Episodic Other lower respiratory disease (4 sources) Shortness of breath; Translations: [SHORTNESS OF BREATH] Onset: 01-27-2022 Episodic Other nutritional; endocrine; and metabolic disorders (5 sources) Disorder of urea cycle metabolism, unspecified; 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] Onset: 10-31-2021 Chronic Other upper respiratory infections (3 sources) Chronic sinusitis; Translations: [Chronic sinusitis, unspecified] Chronic Paralysis (3 sources) Tetraplegia; Translations: [Quadriplegia, unspecified] Onset: 09-23-2021 Chronic Pneumonia (except that caused by tuberculosis or sexually transmitted disease) (1 source) Pneumonia, unspecified organism; Translations: [PNEUMONIA UNSPECIFIED ORGANISM] Onset: 08-05-2022 Episodic Residual codes; unclassified (1 source) Restlessness and agitation; Translations: [RESTLESSNESS AND AGITATION] Onset: 08-05-2022 Chronic Respiratory failure; insufficiency; arrest (adult) (1 source) Acute respiratory failure with hypoxia; Translations: [ACUTE RESPIRATORY FAIL W/HYPOXIA] Onset: 08-05-2022 Episodic Septicemia (except in labor) (5 sources) Sepsis, unspecified organism; Translations: [Other specified sepsis] Onset: 07-29-2022 Episodic Thyroid disorders (5 sources) Hypothyroidism; Translations: [Hypothyroidism, unspecified] Onset: 08-05-2022 06-30-2013 Chronic Unclassified (3 sources) COUGH, UNSPECIFIED; Translations: [COUGH, UNSPECIFIED] Onset: 08-05-2022 Unclassified (1 source) CONTACT W/AND (SUSP) EXPOS COVID-19; Translations: [CONTACT W/AND (SUSP) EXPOS COVID-19] Onset: 08-05-2022 Unclassified (1 source) PT OTH NONCOMPLIANCE MED OTH REASON; Translations: [PT OTH NONCOMPLIANCE MED OTH REASON] Onset: 08-05-2022 Viral infection (1 source) Human metapneumovirus as the cause of diseases classified elsewhere; Translations: [HMPV CAUSE DZ CLASSIFIED ELSEWHERE] Onset: 08-05-2022 Episodic Past or Other Problems Problem Classification Problem Date Documented Da te Episodic/Chronic Complications of surgical procedures or medical care (4 sources) Other complications of procedures, not elsewhere classified, initial encounter; Translations: [OTH COMPLICATIONS PROC NEC INITIAL] Onset: 09-29-2021 Episodic Fever of unknown origin (4 sources) Fever, unspecified; Translations: [FEVER UNSPECIFIED] Onset: 01-24-2022 Episodic Nausea and vomiting (3 sources) Vomiting, unspecified; Translations: [VOMITING UNSPECIFIED] Onset: 09-22-2021 Episodic Other circulatory disease (4 sources) Other specified symptoms and signs involving the circulatory and respiratory systems; Translations: [OTH SPEC SX SIGNS INVLV CIRC RS] Onset: 01-06-2022 Episodic Other diseases of kidney and ureters (4 sources) Cyst of kidney, acquired; Translations: [CYST OF KIDNEY ACQUIRED] Onset: 11-13-2021 Episodic Other gastrointestinal disorders (1 source) Constipation, unspecified; Translations: [CONSTIPATION UNSPECIFIED] Onset: 09-23-2021 Episodic Other injuries and conditions due to external causes (4 sources) Other injury of unspecified body region, initial encounter; Translations: [OTHER INJURY UNS BODY REGION INIT] Onset: 10-21-2021 Episodic Other male genital disorders (1 source) Other specified disorders of the male genital organs; Translations: [OTHER SPEC D/O MALE GENITAL ORGANS] Onset: 11-19-2021 Episodic Other screening for suspected conditions (not mental disorders or infectious disease) (1 source) Abnormal finding of blood chemistry, unspecified; Translations: [ABNORMAL FINDING BLD CHEMISTRY UNS] Onset: 04-26-2022 Episodic Other upper respiratory infections (1 source) Acute upper respiratory infection, unspecified; Translations: [ACUTE UP RESPIRATORY INFECTION UNS] Onset: 01-27-2022 Episodic Residual codes; unclassified (1 source) Insomnia, unspecified; Translations: [INSOMNIA UNSPECIFIED] Onset: 01-27-2022 Episodic Unclassified (1 source) COUGH, UNSPECIFIED; Translations: [COUGH, UNSPECIFIED] Onset: 08-04-2022 Results Test Name Value Interpretation Reference Range Facility Ambulatory Visit Summaryon 0 12-16-2022 Ambulatory Visit Summary FRANCOIS LOPEZ :1980 Visit Date:12/16/2022 Ambulatory Visit Instructions Your Diagnosis Retractile testis Intermittent urinary incontinence Your Care Team Attending Physician - Abner BYRNE, Arline Little Primary Care Physician - FAM VENTURA DO This Is Your Medications List acetaminophen albuterol (albuterol 0.083% Inh Cassie 3 mL UD) alendronate (alendronate Tab) ascorbic acid (Vitamin C) atorvastatin azelastine nasal (azelastine nasal 137 mcg/inh spray) benzocaine-docusate (Enemeez Plus) budesonide (budesonide 0.5 mg/2 mL Inh Susp) calcium-vitamin D (Oyster Shell Calcium with Vitamin D) chlorpheniramine (Allergy Relief) cholecalciferol (Vitamin D3 5000 intl units oral capsule) clobazam (Onfi) dextromethorphan-guai fenesin (Cough and Chest Congestion) diazepam diazepam (Diastat AcuDial adult) divalproex sodium (divalproex sodium 125 mg Cap-EC) docusate (docusate sodium 100 mg Cap) doxycycline (doxycycline hyclate 100 mg Cap) erythromycin topical felbamate (felbamate 400 mg oral tablet) fenofibrate (fenofibrate 145 mg Tab) fluticasone (fluticasone furoate 50 mcg inhalation powder) furosemide (furosemide 20 mg Tab) glycopyrrolate (glycopyrrolate 1 mg oral tablet) guaifenesin (guaifenesin 400 mg oral tablet) hydrocortisone topical (hydrocortisone 2.5% Rectal Crm w/Appl) ipratropium ipratropium (ipratropium 0.02% inhalation solution) ketoconazole topical (ketoconazole Top 2% Crm) lactulose levetiracetam (Keppra) levothyroxine linaclotide (Linzess 145 mcg oral capsule) linaclotide (Linzess) loratadine (loratadine 10 mg Tab) magnesium oxide (magnesium oxide 400 mg Tab) melatonin (melatonin 5 mg oral tablet) montelukast (Singulair 10 mg Tab) multivitamin with iron ocular lubricant (Artificial Tears preserved ophthalmic solution) omeprazole (omeprazole 40 mg Cap-DR) oxcarbazepine (Trileptal) oxcarbazepine (oxcarbazepine 600 mg Tab) polyethylene glycol 3350 ([id number] oral powder for reconstitution) polyethylene glycol 3350 (polyethylene glycol 3350 17 gram packet) rifaximin (Xifaxan 550 mg oral tablet) senna (Senna 8.6 mg oral tablet) sodium chloride nasal ([place] Saline Nasal Gel) tamsulosin Discharge Vitals Temperature (Temporal Artery) 36.7 ?C Heart Rate (Peripheral) 84 Blood Pressure 128/78 Height 158 cm Height 62 in Weight 107.9 kg Weight 237.38 lb BMI 43.22 What to do next You Need to Schedule the Following Appointments Follow Up with Abner BYRNE, JUNIOR Hawk, URO When: Comments: PRN Where: Medications What How Much When Instructions Unchanged acetaminophen Unchanged albuterol (albuterol 0.083% Inh Cassie 3 mL UD) Inhalation As Directed as needed for Shortness of breath or wheezing Unchanged alendronate (alendronate Tab) 70 Milligram By Mouth Wednesday Unchanged ascorbic acid (Vitamin C) Every day Unchanged atorvastatin 10 Milligram By Mouth Every day Unchanged azelastine nasal (azelastine nasal 137 mcg/ inh spray) 2 Sprays Nasal Inhalation As Directed as needed for Allergy symptoms Unchanged benzocaine-docusate (Enemeez Plus) 1 Application By rectum Every day as needed for as needed for constipation Unchanged budesonide (budesonide 0.5 mg/ 2 mL Inh Susp) 2 Milliliter Nebulized inhalation (aerosol) 2 times a day Unchanged calcium-vitamin D (Oyster Shell Calcium with Vitamin D) 1 tab bid Unchanged chlorpheniramine (Allergy Relief) 50 Milligram By Mouth Every day Unchanged cholecalciferol (Vitamin D3 5000 intl units oral capsule) Unchanged clobazam (Onfi) 10 Milligram By Mouth 2 times a day Unchanged dextromethorphan-guai fenesin (Cough and Chest Congestion) Unchanged diazepam 10 Milligram By rectum As needed for Seizure Unchanged diazepam (Diastat AcuDial adult) By rectum Once Unchanged divalproex sodium (divalproex sodium 125 mg Cap-EC) By Mouth 3 times a day Unchanged docusate (docusate sodium 100 mg Cap) 1 Capsules By Mouth 2 times a day as needed for for constipation Unchanged doxycycline (doxycycline hyclate 100 mg Cap) By Mouth 2 times a day Unchanged erythromycin topical As needed for Rash tid to rash as needed Unchanged felbamate (felbamate 400 mg oral tablet) By Mouth 3 times a day Unchanged fenofibrate (fenofibrate 145 mg Tab) By Mouth Every day Unchanged fluticasone (fluticasone furoate 50 mcg inhalation powder) Inhalation Every 24 hours Unchanged furosemide (furosemide 20 mg Tab) By Mouth Every day Unchanged glycopyrrolate (glycopyrrolate 1 mg oral tablet) By Mouth 3 times a day Unchanged guaifenesin (guaifenesin 400 mg oral tablet) Unchanged hydrocortisone topical (hydrocortisone 2.5% Rectal Crm w/ Appl) 1 Application By rectum 2 times a day Unchanged ipratropium 4 times a day Unchanged ipratropium (ipratropium 0.02% inhalation solution) Nebulized inhalation (aerosol) 4 times a day Unchanged ketoconazole topical (ketoconazole Top 2% Crm) 1 Application T (more content not included)... [facility] Patient Educationon 12-17-19 23 Patient Education Obstetrics and Gynecology Kegel Exercises Kegel exercises can help strengthen your pelvic floor muscles. The pelvic floor is a group of muscles that support your rectum, small intestine, and bladder. In females, pelvic floor muscles also help support the uterus. These muscles help you control the flow of urine and stool (feces). Kegel exercises are painless and simple. They do not require any equipment. Your provider may suggest Kegel exercises to: ? Improve bladder and bowel control. ? Improve sexual response. ? Improve weak pelvic floor muscles after surgery to remove the uterus (hysterectomy) or after , in females. ? Improve weak pelvic floor muscles after prostate gland removal or surgery, in males. Kegel exercises involve squeezing your pelvic floor muscles. These are the same muscles you squeeze when you try to stop the flow of urine or keep from passing gas. The exercises can be done while sitting, standing, or lying down, but it is best to vary your position. Ask your health care provider which exercises are safe for you. Do exercises exactly as told by your health care provider and adjust them as directed. Do not begin these exercises until told by your health care provider. Exercises How to do Kegel exercises: 1. Squeeze your pelvic floor muscles tight. You should feel a tight lift in your rectal area. If you are a female, you should also feel a tightness in your vaginal area. Keep your stomach, buttocks, and legs relaxed. 2. Hold the muscles tight for up to 10 seconds. 3. Breathe normally. 4. Relax your muscles for up to 10 seconds. 5. Repeat as told by your health care provider. Repeat this exercise daily as told by your health care provider. Continue to do this exercise for at least 4?6 weeks, or for as long as told by your health care provider. You may be referred to a physical therapist who can help you learn more about how to do Kegel exercises. Depending on your condition, your health care provider may recommend: ? Varying how long you squeeze your muscles. ? Doing several sets of exercises every day. ? Doing exercises for several weeks. ? Making Kegel exercises a part of your regular exercise routine. This information is not intended to replace advice given to you by your health care provider. Make sure you discuss any questions you have with your health care provider. Document Revised: 08/14/2021 Document Reviewed: 08/14/2021 [employer] Patient Education ? 2022 [employer] [facility] Physician Orderon 12-16-2022 Physician Order [id number]:127 [facility] RAD - Ultrasound Reporton RAD - Ultrasound Report [id number] .[id number]:127 [facility] Urology Office/Clinic Noteon 12-16-2022 Urology Office/Clinic Note Chief Complaint [age] year F/u HPI Staff 1yr Scrotal US DX: Retractile Testis & Intermittent Urinary Incontinence. CBC/CMP 08/01/22 Could not give a urine sample this morning Dysuria: _unknown Incomplete bladder emptying: unknown Hematuria: unknown Frequency: unknown Urgency: _unknown Nocturia: _scheduled every 2 hours, sometimes changed every 2 hours Stream: _unknown Leaking: _unknown Post void dripping: _ Wearing pads/ Depends: _depends daily changed 2 times a day Urge incontinence: _unknown Stress incontinence: _unknown Incontinence without Sensory Awareness: _unknown Abdominal pain: _unknown Flank pain: unknown Sexual complaints: unknown History of Present Illness Tests reviewed: reviewed UA and Scrotal US. I have reviewed the previous health record information and history for this patient from . I have reviewed and verified the staff HPI to be accurate for this encounter. There have been no associated fever, chills, flank pain, or blood in the urine. Denies any urinary infections since last encounter. Review of Systems PHQ Score Initial Depression Screen Score: 0 ROS - Provider Constitutional: denies weight loss, denies hot flashes. Eyes: denies eye problems. Gastrointestinal: denies nausea, denies vomiting. Cardiovascular: denies chest pain or angina. Integumentary: no dryness Musculoskeletal: denies musculoskeletal symptoms. ENMT: denies otolaryngeal symptoms. Respiratory: no shortness of breath. Heme/Lymph: denies easy bleeding tendency, denies easy bruising tendency. Psychiatric: no confusion, no anxiety. Genitourinary: See HPI. Physical Exam Vitals & Measurements T: 36.7 ?C(Temporal Artery) HR: 84(Peripheral) BP: 128/78 HT: 62 in HT: 158 cm WT: 107.9 kg WT: 237.38 lb BMI: 43.22 General Appearance: alert, no distress, well nourished, under developed male. wheelchair bound, developmental delay, minimal verbal communication, combative Assessment/Plan 42 yo male here today to review recent Scrotal US, follow-up of retractile testes. Pt currently resides in [facility]. CBC/CMP 08/01/22 1. 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 Likely BL retractile testes (opposite from first image, consistent with my physical exam) Scrotal US 11/26/22 - Testis are wnl, bilateral descended testes, no masses, flow intact. Caregiver states that everything has been normal so far. Discussed management options moving forward. Given patient has been asymptomatic without recurrence recommend continued observation. -Caregivers to notify us if his testicle is not down within the scrotum or unable to be pulled down. Follow up as needed. All questions/concerns were discussed. Pt to call the office if he encounters any issues prior. Pt acknowledges understanding. 2. Intermittent urinary incontinence (R32: Unspecified urinary incontinence) Unsure if pt is not completely emptying his bladder, but unable to check PVR pt combative with exam. Tends to hold urine. Asymptomatic , no UTIs Urine is a dark yellow in color, and pt does not drink a lot of fluids. No infections. States he still has intermittent incontinence but no worse than before, not an issue. Patient does not describe any discomfort. -Given no complications we will continue conservative management at this time. -Timed voiding -If pt gets any infections or complications, caregiver is to call our office. I spent 20 minutes today with the patient: reviewing tests in preparation to see and discuss them with the patient, documenting clinical information in the electronic health records, and care coordination. Time was spent performing a medical exam and evaluation, counseling and educating the patient/caregiver in caring for the patient. Follow-up With When Contact Information Abner BYRNE, Arline Little, URL, URO Additional Instructions: PRN Patient Education Bright Sue I, Makayla Todd, personally scribed for Dr. Levine on 12/16/2022 11:26:45. . Documentation recorded by the scribe, Makayla Todd, accurately reflects the services(s) I performed and decisions made by me. Authenticated by Dr. Levine on 12/16/2022 20:01:50. Problem List/Past Medical History Ongoing ADD - Attention deficit disorder Hypothyroid Intermittent urinary incontinence Onychomycosis Osteoporosis Retractile testis Seizure disorder Severe mental retardation (I.Q. 20-34) Historical No qualifying data Medications acetaminophen albuterol 0.083% Inh Cassie 3 mL UD, Inhalation, As Directed, PRN alendronate Tab, 70 mg, Oral, Wednesday Allergy Relief, 50 mg, Oral, Daily Artificial Tears preserved ophthalmic solution, Eye-Both, QID atorvastatin, 10 mg, Oral, Daily [place] Saline Nasal Gel, Nasal, TID azelastine nasal 137 mcg/inh spray, 2 spray(s), Nasal, As (more content not included)... [facility] Comment on above: Result Comment: Elec tronically Signed By: Arline Levine MD\.br\Date and Time Signed: 12/16/22 20:02 EDT\.br\Electronically Co-Signed By: Makayla Todd\.br\Date and Time Co-Signed: 12/16/22 11:27 EDT XR CHEST 1 Von 08-04-2022 XR CHEST 1 V EXAM: XR CHEST 1 V a t 181 HISTORY: SHORTNESS OF BREATH COMPARISON: 07/28/2022 TECHNIQUE: AP upright portable chest x-ray FINDINGS: The study is limited by shallow inspiration. The heart is not enlarged and the vasculature is not distended. The left lung base now appears relatively clear. No discrete infiltrate, effusion or pneumothorax is identified. The osseous structures are grossly intact. A stimulator is noted on the left side. IMPRESSION: Shallow inspiration, somewhat limiting the study. There is no clear evidence of a focal infiltrate or cardiac decompensation. Electronically authenticated by: GUANAKITO MEADE Date: 2022-08-04 18:50 Normal [facility] AMMONIAon 08-02-2022 Ammonia (P) [Moles/Vol] 87 umol/L Critically high - [facility] Comment on above: Performed By: #### B MP #### [facility] [address] [address] [address] Deepak Greenfield AMMONIAon 08-01-2022 Ammonia (P) [Moles/Vol] 42 umol/L Critically high - [facility] Comment on above: Performed By: #### M G, CMP #### [facility] [address] [address] [address] Deepak Greenfield CBC W MANUAL DIFFon 08-02-19 23 ATYPICAL LYMPH # 0.41 103/ul Normal [facility] Comment on above: Performed By: #### M G, CMP #### [facility] [address] [address] [address] Deepak Greenfield ATYPICAL LYMPH % 7 % Normal [facility] Comment on above: Performed By: #### M G, CMP #### [facility] [address] [place] [address] Dr. Deepak Greenfield BAND # 0.0 103/ul Normal 0.0-0.3 [facility] Comment on above: Performed By: #### M G, CMP #### [facility] [address] [place] [address] Dr. Deepak Greenfield BAND % 0 % Normal 0-5 [facility] Comment on above: Performed By: #### M G, CMP #### [facility] [address] [place] [address] Dr. Deepak Greenfield BASOM # 0.00 103/ul Normal 0.00-0.10 [facility] Comment on above: Performed By: #### M G, CMP #### [facility] [address] [place] [address] Dr. Deepak Greenfield BASOM % 0.0 % Critically low 0.2-2.0 [facility] Comment on above: Performed By: #### M G, CMP #### [facility] [address] [place] [address] Dr. Deepak Greenfield BLAST # Normal [facility] Comment on above: Performed By: #### M G, CMP #### [facility] [address] [place] [address] Dr. Deepak Greenfield BLAST % Normal [facility] Comment on above: Performed By: #### M G, CMP #### [facility] [address] [place] [address] Dr. Deepak Greenfield CORRECTED WBC Normal 4.0-11.0 [facility] Comment on above: Performed By: #### M G, CMP #### [facility] [address] [place] [address] Dr. Deepak Greenfield EOS # 0.06 103/ul Normal 0.00-0.70 [facility] Comment on above: Performed By: #### M G, CMP #### [facility] [address] [place] [address] Dr. Deepak Greenfield EOS% 1.0 % Normal 0.9-7.0 [facility] Comment on above: Performed By: #### M G, CMP #### [facility] [address] [address] [address] Deepak Greenfield HCT 37.6 % Critically low 42.0-54.0 [facility] Comment on above: Performed By: #### M G, CMP #### [facility] [address] [address] [address] Deepak Greenfield HGB 12.3 g/dl Critically low 14.0-18.0 [facility] Comment on above: Performed By: #### M G, CMP #### [facility] [address] [address] [address] Deepak Greenfield LYMPHM # 1.91 103/ul Normal 1.20-3.80 [facility] Comment on above: Performed By: #### M G, CMP #### [facility] [address] [address] [address] Deepak Greenfield LYMPHM% 33.0 % Normal 20.5-60.0 [facility] Comment on above: Performed By: #### M G, CMP #### [facility] [address] [address] [address] Deepak Greenfield MCH 31.7 pg Normal 25.9-34.0 [facility] Comment on above: Performed By: #### M G, CMP #### [facility] [address] [address] [address] Deepak Greenfield MCHC 32.7 g/dl Normal 29.9-35.2 [facility] Comment on above: Performed By: #### M G, CMP #### [facility] [address] [address] [address] Deepak Greenfield MCV 96.9 fL Critically high 80.0-94.0 [facility] Comment on above: Performed By: #### M G, CMP #### [facility] [address] [address] [address] Deepak Greenfield METAMYELOCYTE # Normal [facility] Comment on above: Performed By: #### M G, CMP #### [facility] [address] [address] [address] Deepak Greenfield METAMYELOCYTE % Normal [facility] Comment on above: Performed By: #### M G, CMP #### [facility] [address] [place] [address] Dr. Deepak Greenfield MONOM# 0.29 103/ul Critically low 0.30-0.80 [facility] Comment on above: Performed By: #### M G, CMP #### [facility] [address] [address] [address] Deepak Greenfield MONOM% 5.0 % Normal 1.7-12.0 [facility] Comment on above: Performed By: #### M G, CMP #### [facility] [address] [place] [address] Dr. Deepak Greenfield MPV 11.0 fL Normal 9.5-13.5 [facility] Comment on above: Performed By: #### M G, CMP #### [facility] [address] [place] [address] Dr. Deepak Greenfield MYELOCYTE # Normal [facility] Comment on above: Performed By: #### M G, CMP #### [facility] [address] [place] [address] Dr. Deepak Greenfield MYELOCYTE % Normal [facility] Comment on above: Performed By: #### M G, CMP #### [facility] [address] [place] [address] Dr. Deepak Greenfield NRBC Normal [facility] Comment on above: Performed By: #### M G, CMP #### [facility] [address] [place] [address] Dr. Deepak Greenfield PLT 208 103/ul Normal 150-450 [facility] Comment on above: Performed By: #### M G, CMP #### [facility] [address] [place] [address] Dr. Deepak Greenfield RBC 3.88 106/ul Critically low 4.70-6.10 [facility] Comment on above: Performed By: #### M G, CMP #### [facility] [address] [place] [address] Dr. Deepak Greenfield RDW 12.9 % Normal 11.0-15.0 [facility] Comment on above: Performed By: #### M G, CMP #### [facility] [address] [place] [address] Dr. Deepak Greenfield SEG # 3.13 103/ul Normal 1.40-6.50 [facility] Comment on above: Performed By: #### M G, CMP #### [facility] [address] [place] [address] Dr. Deepak Greenfield SEG % 54.0 % Normal 43.0-75.0 [facility] Comment on above: Performed By: #### M G, CMP #### [facility] [address] [place] [address] Dr. Deepak Greenfield STOMATOCYTES 3+ Normal [facility] Comment on above: Performed By: #### M G, CMP #### [facility] [address] [place] [address] Dr. Deepak [place] WBC 5.8 103/ul Normal 4.0-11.0 [facility] Comment on above: Performed By: #### M G, CMP #### [facility] [address] [place] [address] Dr. Deepak [place] PROF CHEM 8 (BAS METB)on Anion gap [Moles/Vol] 16.1 mmol/L Normal [facility] Comment on above: Performed By: #### B MP #### [facility] [address] [place] [address] Dr. Deepak [place] Calcium [Mass/Vol] 9.3 mg/dL Normal 8.5-10.1 [facility] Comment on above: Performed By: #### B MP #### [facility] [address] [place] [address] Dr. Deepak [place] Chloride [Moles/Vol] 105 mmol/L Normal 98-107 [facility] Comment on above: Performed By: #### B MP #### [facility] [address] [place] [address] Dr. Deepak [place] CO2 [Moles/Vol] 27.6 mmol/L Normal 21.0-32.0 [facility] Comment on above: Performed By: #### B MP #### [facility] [address] [address] [address] Deepak [place] Creatinine [Mass/Vol] 0.96 mg/dL Normal 0.70-1.30 [facility] Comment on above: Performed By: #### B MP #### [facility] [address] [address] [address] Deepak [place] EGFR-AF IRANIAN >60 Normal >=60 [facility] Comment on above: Performed By: #### B MP #### [facility] [address] [address] [address] Deepak [place] EGFR-NON AF IRANIAN >60 Normal >=60 [facility] Comment on above: Performed By: #### B MP #### [facility] [address] [address] [address] Deepak [place] Glucose [Mass/Vol] 160 mg/dL Critically high 74-106 [facility] Comment on above: Performed By: #### B MP #### [facility] [address] [address] [address] Deepak [place] Potassium [Moles/Vol] 3.7 mmol/L Normal 3.5-5.1 [facility] Comment on above: Performed By: #### B MP #### [facility] [address] [address] [address] Deepak [place] Sodium [Moles/Vol] 145 mmol/L Normal 136-145 [facility] Comment on above: Performed By: #### B MP #### [facility] [address] [address] [address] Deepak [place] Urea nitrogen [Mass/Vol] 5.0 mg/dL Critically low 7.0-18.0 [facility] Comment on above: Performed By: #### B MP #### [facility] [address] [address] [address] Deepak [place] Urea nitrogen/Creatinine [Mass ratio] 5.2 mg/mg Normal [facility] Comment on above: Performed By: #### B MP #### [facility] [address] [place] [address] Dr. Deepak [place] AMMONIAon 07-31-2022 Ammonia (P) [Moles/Vol] 94 umol/L Critically high 11-32 [facility] Comment on above: Performed By: #### M G, CMP #### [facility] [address] [place] [address] Dr. Deepak [place] CBC AUTO DIFFon 07-31-2022 BASO # 0.0 103/ul Normal 0.0-0.1 [facility] Comment on above: Performed By: #### B MP #### [facility] [address] [place] [address] Dr. Deepak [place] Basophils/100 WBC (Bld) 0.1 % Critically low 0.2-2.0 [facility] Comment on above: Performed By: #### B MP #### [facility] [address] [place] [address] Dr. Deepak [place] EO # 0.0 103/ul Normal 0.0-0.7 [facility] Comment on above: Performed By: #### B MP #### [facility] [address] [place] [address] Dr. Deepak [place] Eosinophils/100 WBC (Bld) 0.0 % Critically low 0.9-7.0 [facility] Comment on above: Performed By: #### B MP #### [facility] [address] [place] [address] Dr. Deepak [place] Erythrocyte distribution width (RBC) [Ratio] 13.1 % Normal 11.0-15.0 [facility] Comment on above: Performed By: #### B MP #### [facility] [address] [place] [address] Dr. Deepak [place] Hematocrit (Bld) [Volume fraction] 32.4 % Critically low 42.0-54.0 [facility] Comment on above: Performed By: #### B MP #### [facility] [address] [place] [address] Dr. Deepak [place] Hemoglobin (Bld) [Mass/Vol] 10.9 g/dL Critically low 14.0-18.0 [facility] Comment on above: Performed By: #### B MP #### [facility] [address] [place] [address] Dr. Deepak [place] IG # 0.02 10e3/ul Normal 0.00-0.03 [facility] Comment on above: Performed By: #### B MP #### [facility] [address] [place] [address] Dr. Deepak [place] IG % 0.3 % Normal 0.0-0.5 [facility] Comment on above: Performed By: #### B MP #### [facility] [address] [place] [address] Dr. Deepak [place] LYMPH # 2.7 103/ul Normal 1.2-3.8 [facility] Comment on above: Performed By: #### B MP #### [facility] [address] [place] [address] Dr. Deepak [place] Lymphocytes/100 WBC (Bld) 38.9 % Normal 20.5-60.0 [facility] Comment on above: Performed By: #### B MP #### [facility] [address] [place] [address] Dr. Deepak [place] MANUAL DIFF REQ NO Normal [facility] Comment on above: Performed By: #### B MP #### [facility] [address] [place] [address] Dr. Deepak [place] MCH (RBC) [Entitic mass] 32.3 pg Normal 25.9-34.0 [facility] Comment on above: Performed By: #### B MP #### [facility] [address] [place] [address] Dr. Deepak [place] MCHC (RBC) [Mass/Vol] 33.6 g/dL Normal 29.9-35.2 [facility] Comment on above: Performed By: #### B MP #### [facility] [address] [place] [address] Dr. Deepak [place] MCV (RBC) [Entitic vol] 96.1 fL Critically high 80.0-94.0 [facility] Comment on above: Performed By: #### B MP #### [facility] [address] [address] [address] Deepak [place] MONO # 0.3 103/ul Normal 0.3-0.8 [facility] Comment on above: Performed By: #### B MP #### [facility] [address] [address] [address] Deepak [place] Monocytes/100 WBC (Bld) 4.9 % Normal 1.7-12.0 [facility] Comment on above: Performed By: #### B MP #### [facility] [address] [address] [address] Deepak [place] NEUT # 3.9 103/ul Normal 1.4-6.5 [facility] Comment on above: Performed By: #### B MP #### [facility] [address] [place] [address] Dr. Deepak [place] Neutrophils/100 WBC (Bld) 55.8 % Normal 43.0-75.0 [facility] Comment on above: Performed By: #### B MP #### [facility] [address] [address] [address] Deepak [place] Platelet mean volume (Bld) [Entitic vol] 9.7 fL Normal 9.5-13.5 [facility] Comment on above: Performed By: #### B MP #### [facility] [address] [address] [address] Deepak [place] PLT 296 103/ul Normal 150-450 [facility] Comment on above: Performed By: #### B MP #### [facility] [address] [address] [address] Deepak [place] RBC 3.37 106/ul Critically low 4.70-6.10 [facility] Comment on above: Performed By: #### B MP #### [facility] [address] [address] [address] Deepak [place] WBC 7.0 103/ul Normal 4.0-11.0 [facility] Comment on above: Performed By: #### B MP #### [facility] [address] [address] [address] Deepak [place] PROF CHEM 8 (BAS METB)on Anion gap [Moles/Vol] 14.9 mmol/L Normal [facility] Comment on above: Performed By: #### C BC #### [facility] [address] [place] [address] Dr. Deepak [place] Calcium [Mass/Vol] 8.8 mg/dL Normal 8.5-10.1 [facility] Comment on above: Performed By: #### C BC #### [facility] [address] [place] [address] Dr. Deepak [place] Chloride [Moles/Vol] 105 mmol/L Normal 98-107 [facility] Comment on above: Performed By: #### C BC #### [facility] [address] [place] [address] Dr. Deepak [place] CO2 [Moles/Vol] 26.4 mmol/L Normal 21.0-32.0 [facility] Comment on above: Performed By: #### C BC #### [facility] [address] [place] [address] Dr. Deepak [place] Creatinine [Mass/Vol] 0.70 mg/dL Normal 0.70-1.30 [facility] Comment on above: Performed By: #### C BC #### [facility] [address] [place] [address] Dr. Deepak [place] EGFR-AF IRANIAN >60 Normal >=60 [facility] Comment on above: Performed By: #### C BC #### [facility] [address] [place] [address] Dr. Deepak [place] EGFR-NON AF IRANIAN >60 Normal >=60 [facility] Comment on above: Performed By: #### C BC #### [facility] [address] [place] [address] Dr. Deepak [place] Glucose [Mass/Vol] 129 mg/dL Critically high 74-106 [facility] Comment on above: Performed By: #### C BC #### [facility] [address] [place] [address] Dr. Deepak [place] Potassium [Moles/Vol] 4.3 mmol/L Normal 3.5-5.1 [facility] Comment on above: Performed By: #### C BC #### [facility] [address] [place] [address] Dr. Deepak [place] Sodium [Moles/Vol] 142 mmol/L Normal 136-145 [facility] Comment on above: Performed By: #### C BC #### [facility] [address] [place] [address] Dr. Deepak [place] Urea nitrogen [Mass/Vol] 6.0 mg/dL Critically low 7.0-18.0 [facility] Comment on above: Performed By: #### C BC #### [facility] [address] [place] [address] Dr. Deepak [place] Urea nitrogen/Creatinine [Mass ratio] 8.6 mg/mg Normal [facility] Comment on above: Performed By: #### C BC #### [facility] [address] [place] [address] Dr. Deepak [place] AMMONIAon 07-30-2022 Ammonia (P) [Moles/Vol] 64 umol/L Critically high 11-32 [facility] Comment on above: Performed By: #### C BC #### [facility] [address] [place] [address] Dr. Deepak [place] CBC AUTO DIFFon 07-30-2022 BASO # 0.0 103/ul Normal 0.0-0.1 [facility] Comment on above: Performed By: #### I NFLUAB #### [facility] [address] [place] [address] Dr. Deepak [place] Basophils/100 WBC (Bld) 0.0 % Critically low 0.2-2.0 [facility] Comment on above: Performed By: #### I NFLUAB #### [facility] [address] [place] [address] Dr. Deepak [place] EO # 0.0 103/ul Normal 0.0-0.7 [facility] Comment on above: Performed By: #### I NFLUAB #### [facility] [address] [place] [address] Dr. Deepak [place] Eosinophils/100 WBC (Bld) 0.0 % Critically low 0.9-7.0 [facility] Comment on above: Performed By: #### I NFLUAB #### [facility] [address] [place] [address] Dr. Deepak [place] Erythrocyte distribution width (RBC) [Ratio] 13.1 % Normal 11.0-15.0 [facility] Comment on above: Performed By: #### I NFLUAB #### [facility] [address] [place] [address] Dr. Deepak [place] Hematocrit (Bld) [Volume fraction] 31.4 % Critically low 42.0-54.0 [facility] Comment on above: Performed By: #### I NFLUAB #### [facility] [address] [place] [address] Dr. Deepak [place] Hemoglobin (Bld) [Mass/Vol] 10.5 g/dL Critically low 14.0-18.0 [facility] Comment on above: Performed By: #### I NFLUAB #### [facility] [address] [place] [address] Dr. Deepak [place] IG # 0.01 10e3/ul Normal 0.00-0.03 [facility] Comment on above: Performed By: #### I NFLUAB #### [facility] [address] [place] [address] Dr. Deepak [place] IG % 0.2 % Normal 0.0-0.5 [facility] Comment on above: Performed By: #### I NFLUAB #### [facility] [address] [place] [address] Dr. Deepak [place] LYMPH # 1.5 103/ul Normal 1.2-3.8 [facility] Comment on above: Performed By: #### I NFLUAB #### [facility] [address] [place] [address] Dr. Deepak [place] Lymphocytes/100 WBC (Bld) 27.5 % Normal 20.5-60.0 [facility] Comment on above: Performed By: #### I NFLUAB #### [facility] [address] [place] [address] Dr. Deepak [place] MANUAL DIFF REQ NO Normal [facility] Comment on above: Performed By: #### I NFLUAB #### [facility] [address] [place] [address] Dr. Deepak [place] MCH (RBC) [Entitic mass] 32.4 pg Normal 25.9-34.0 [facility] Comment on above: Performed By: #### I NFLUAB #### [facility] [address] [place] [address] Dr. Deepak [place] MCHC (RBC) [Mass/Vol] 33.4 g/dL Normal 29.9-35.2 [facility] Comment on above: Performed By: #### I NFLUAB #### [facility] [address] [place] [address] Dr. Deepak [place] MCV (RBC) [Entitic vol] 96.9 fL Critically high 80.0-94.0 [facility] Comment on above: Performed By: #### I NFLUAB #### [facility] [address] [place] [address] Dr. Deepak [place] MONO # 0.2 103/ul Critically low 0.3-0.8 [facility] Comment on above: Performed By: #### I NFLUAB #### [facility] [address] [place] [address] Dr. Deepak [place] Monocytes/100 WBC (Bld) 2.9 % Normal 1.7-12.0 [facility] Comment on above: Performed By: #### I NFLUAB #### [facility] [address] [place] [address] Dr. Deepak [place] NEUT # 3.8 103/ul Normal 1.4-6.5 [facility] Comment on above: Performed By: #### I NFLUAB #### [facility] [address] [place] [address] Dr. Deepak [place] Neutrophils/100 WBC (Bld) 69.4 % Normal 43.0-75.0 [facility] Comment on above: Performed By: #### I NFLUAB #### [facility] [address] [address] [address] Deepak [place] Platelet mean volume (Bld) [Entitic vol] 9.4 fL Critically low 9.5-13.5 [facility] Comment on above: Performed By: #### I NFLUAB #### [facility] [address] [place] [address] Dr. Deepak [place] PLT 256 103/ul Normal 150-450 [facility] Comment on above: Performed By: #### I NFLUAB #### [facility] [address] [address] [address] Deepak [place] RBC 3.24 106/ul Critically low 4.70-6.10 [facility] Comment on above: Performed By: #### I NFLUAB #### [facility] [address] [place], [place] [id number] Dr. Deepak [place] WBC 5.5 103/ul Normal 4.0-11.0 [facility] Comment on above: Performed By: #### I NFLUAB #### [facility] [address] [place] [address] Dr. Deepak Green[place] Coding Summary.on 07-30-2022 Coding Summary. CD:[id number] W w+PGhlYWQ+DB6MCSLwI62 mbXDnbP9tK4GKPPkRLwct GOFGMXfKAeEbsiJpEX2mk XNjZXJu IC8+AK2vVHOoPanibMGkk 0R2zRG5M70nlh7uISuwxH J1CIGeDdSeznfli5dvbFv 6IDcuNmluOyBt ZHNreE37MWU0eL57Ml47f NWqzLHvd7bkwSi3WrYrBQ XwXTK9wMbvGDazv4NbXGE nT48ftAOlw8T8 CICqsOqenFEeSoFgcLZ3c K2jTNnahxgeg1idvcugXy w2ry27mELnn8D5pGJ8N4B xggA3QPXhyISe ExsazLNAkZ5dwboxw5bdk isqXoDrHUYqZSw6QBw7KY ZolRnfShDqHA03UFZ7HAO uxmPrP7UeWRBf vHraNeC7p4L1Gk4KP0XBX pthV0VFXPDNXHojaWZ+PC 55pp62R1OjKryuRam2UVR kYAN1yPZ1kM8e GFGtHEsiu9E3sVY3H5Vsp xJsix7ls2smYQNjVAgyR0 9txUHow8W0IMBfhFY8HCR dcJjwYbBbsH16 Oyc+XSFfhAqhk4JhEvrrx 5ull0arqSe0AawxFZTvhh YciPftBMD9d2UwRg6gXJY ogTZ6wCH6lD1s TbJqIhS2PAaoU179BpZmm PUoPimhH08vX0EarNA+PH EvAxy8FSQgwXmzHK5kR6K hZGRpbmctbGVm hVpgSX5yIHTvvyjbJIJyy I0vJVDtN3m3DmFuPrB3PY jmO3AlWUGvxoxhBa58zC2 gZqJxJhL3ZSjv N2HskeR6XDIziGDgAQjwT FP9V88jy6U7KFQfXLVwMA X2rCE0lQ7wsNhrngnfcZR mdDsgdmVydGlj BHenIVgyQ336APAjwKcnF kNvZGluZyBEYXRlOiAgMD QvMTMvMjAyMzwvdGQ+PHR iERN7dBiaSVLx wPPbVIwrVx5sdTgtkLaqJ S5tOVHtuztrYCMpdH0hTW TigNVpeUrnTB7jPJZhbkb yn438JhQbGJR3 LVAguDMeQ1PhoV0xAaCeX ZOoFJLuP7OnuVCqWPbqI3 96YPhtYqE4NCKmzgBcL7K sLWFsaWduOiB0 h3Z5Mv9Ae1TirlwpC5Rcq EEqTuHkQqvyVKi2S2HtYm wvdHI+WN05DQMyMW58IOn 7HTX3cKzfQIno CRJxB7FjqS4qRrKtWXNiO GRkOyc+PHRhYmxlIHdpZH RoPScxMDAlJyBzdHlsZT0 fYd0yBJYhCUWa sXoxhJYuUvJan7rxQDDwC CvsNR4mqHqaJ4XoeLA3WD Zpa9x7Xw62O41cS2HaxHE +DXYtnNM0bDE1 eK3pWxOsVkH4VMocK166A gVoxGGfDymcl0lmk7kjrZ c3BaA8KZJvxxNqhZgiUSL 1s2TqZb70N98n IHdpZHRoPSIxNSUiIHZhb Unpbj1myW8oEz4+PGNvbC Z9eOR2hV8vYsCxQxJ3GLe fR303UdTpsCZz Adbjt0hhp0vohLm7KbRyZ FOnhbTycHwvJMS2w2JpCz 30Z3ImhZwmi5AyYgk3bn2 2iHRsw5I3tKF8 N3QuTOEzwomqlWHhhPexJ P2tRVLrcrwdTLGstS2gAW NkA3g6AtChUiI8YDysH0U tsoQ8OEMzcAXc JXJekVQYgY4ujduid2smg ihmClEzHVPvUOw7GWb8WW KdnAeoKuIfKHF5PuN6YRF 6jWTphY2xpHvy wqwdhX5uGby+QRJ0jJZqg XFFEN5mAauyhLI+PHRkIH T9sTthOAheJKGgxE1qWCE lM3q5LtYyWeG3 UGroL1VdaqN1WGOsqQQcH FZohTOXjV6jzauha4wjqy bgIxDzDAEoNWe6UBf2VTC saWduOiBsZWZ0 XvU3ZBJ7dZWpkO9qeWvja xfjvF7kQbv+QmlydGggRG K9NJr0Z5YoKew4UJExaEn pVJ0vfKWiEHko Ay2ndFhhgKrlUX9jYSGqx rkni536FfMmk0ehOROspT TfBQoxJDP6X26wu4V2AUG mPMRjPJA7rTB0 jU4syWmbgfpctJWjhTqim gUehCwlYLcwSBvcO287CP HbiDydUfMeUAl9A2BtGrd 1GQHrnExtLN9j wYTwVSvsRx9ecTusiYvqM W6bEEYmsdrbp186GyUvb4 ahBJDysJJhRDuuOJN3F53 xn8T6KBGyPEJi EHN4zSG1pW7uxFjnpxhgq GVmdDsgdmVydGljYWwtYW snZ874XWVigEboPaUzjVm 9Y7ErTqo5RDTp yWrrMD7arLFaDSvqNv8gn PhrzTtwLC6wOYYbpwyav1 96LpBgd3lrWJCyvJUuQGn uHAI1B42ut6K2 AXNpTCAyFNG0nPT1gY6xt GlnbjogbGVmdDsgdmVydG urVGmwKHkgX084GRYefPm nPlBhdGllbnQg JIuaUEt6Z6MbPdkshYL+P J08SPRxJO99kHVonKLme6 hyfUh4EiHiHZHpMTI0mHt yTBgbt8GjRAEh P83pnJSpg0Q8TQFhsFxmk VZoCbMjeTG6kN4bHOyuru iud9canbaqSldyx3uegp5 2rQ97V60eJGnl ZHRoPSIzMCUiIHZhbGlnb n5rwO9bNu8+XRSpsFA1vH C0vX8qIRMeOzP1VKzqO42 9InRvcCIvPjxj f9ljr2mykXl4NuT5TUSoh jDspAguFTU4m2YgJz76I2 9sIHdpZHRoPSIyMCUiIHZ fhYbluz0bjR5u Ii8+CYCfuPL1mDC0rW9pO cRpYcS6LUaqT154QlSnaA MsEacbT36zZ5KsvBL+PHR hGvn7GSPkxZwf WO6xgILgSCvlGm4mLZS0F ySyOaSaGGhbO9KyWITfjc uayyfzzJE9DCIqTUIomX6 1Yr8plKitXMGj iXPCxC0flqzwt1rpbexlU cTyUWYkKHe1ZTp9UFYqkJ ffPmXnDCD5McZ9AYO1kIF akR2tgIocvgrm mD6kO4FmRGQxflunAu00f U2yNwSjXqT7GCymWan+U0 3DPNGNTNZMSHNEBxXUXN4 7OF97iMKfv4O0 hLU8L1OiKISxjnliglvbm RD2XFYmUALszH37vXMxQE rqTc2sx2X9o398QOFpBDN haT95Gf0rzEij MHFtzJLUiT2khfzev0fdm brtZoRrVYMiCFn7OJk8VI RbcLgbEiBkENH2RhA1LUC 9oVNcmD9viBoo zazzrI6xKbj+MTAvMTYvM Eq8NDcuwZL+MLZmDFR1cR fjWGibBQEqmO3eJDZwW3q 0OkLlVnO8TCnv N9OsMQJgvxnqIj67kI1gV iErTtY5TJnfY6MubaJ6TG GkwGGtTUjeVSA6L01md0I 8NSDsJSZuSBG7 jZL0gW7vgKrrefvnrVAft DsgdmVydGljYWwtYWxpZ2 46IHRvcDsnPjQyIFllYXJ fQX86TQ47bMAc m6F3kFX5H5IqCCOcvxasa wmdsIE1RFEtCLVfwU54xJ BrERztJm9xy9L8b335ZRE mDONyaS02Ya3t jWmdITLupBVJaT4ndefak 6wdpklzDkMjGYNdWQk7TA j8ROElaClvToFyTBL6NmK 9YSC8aFLdbL0r kUeysluhhW1rJos+TWFsZ TwvdGQ+HEGcTFP1yFyrWC zoAOVtrN8zZPQdD9u3ZxD kDyQ0WQaxK5Xu EHQslenpNl90lS5wZlAvR aN3DEjfA1UwqtK4YPNvsP IaFKptWJW4C67hr4T3JLR cWMJjLLR0bST5 yU7qjFycxbfizFMmlVabf jUyoOrxVVdyYPjwV452JP NxqAdrQi96wMJddKaucmR 2T4AuVcvisGU+ AD83EZHcMB18jWJphWYbs 0sqdBc4PpUhMDUdDRH0mQ skEBgah0JyHNKdK39niVG er2X9TUXjtSod iDAzFeAnyWF6fT8aRRgmg vtxf3oiobpuNmeoo3rywe 50hX33N45zMNheDMUzSHH zMCUiIHZhbGln cg8rcT3oCy0+JJWdyMC7d NQ9rR9zMjFlClC2NDgiN9 19YsAslNPrVjqwc1iay6g plOx2YbBtWKAa xjKseMamUVS9p9EpQm40D 29sIHdpZHRoPSIyMCUiIH PqjVcimw9tdV3hEy6+PC9 yl8jrwr01nH76 dHI+SNGmSFI6oVjpKKpwJ BZakQ0wZGnrNwW5AIZfOm ZbmI08gBYkFFbpOt4zcXs tmNdqHH4hHJEe oxqgr623ToHpv1stNFGlz WCkNNyvFNW3Z86uf0U4LZ OtGQPsXWT1uEL1zY8eyCr nbjogbGVmdDsg kcElpNmmQXqdVWigC240F PKskMpgKrBftNRbX4qjjv VGRU6lKagnvGA+PHRkIHN 0eWxlPSdwYWRk pQ9jUVAeD6w5MhQkNnG3W GymT5BwnkA4KNPizOOxTB BjsBCNvT7jzvbvn2hofqn gIzAwMDAwMDt0 EKe5BXReeMtrOjYcKEB4C vP1GFL8vWYpoV1krXguay xccL9bVuj+RklOOjwvdGQ +UBLiSTJ1nQjl VWiqDTBclI2xIWJlG7b7A gOfVpI3SVbeH9GtwuQ9NW TgfILkDBWyzRZVyS4mema it1ewuiwdDmPa DCSsFXo2WMb8LPCgoRatS fGyHAI3BbA7HRY6uPTheL 9huHkpiummuX6oKmh+TVJ OOjwvdGQ+PHRk NIW6lJstYApaYZEhkG1mB HSdD3p1BqEqLbE5ARbmR9 MjszP4GTTgyEWfIINvvOC LpG1scqvsu0ps lmfnHrHsUKZcJIr4HWt9A QNzaJvdLmQuYQO5FdR0HJ L9lDNyfR5xlRueinywwV6 wOyc+VSN7FWV4 UE40CJ79L1VsVwumuHXxe +PHRhYmxlIHdpZHRoPS tsTXQwSqEmjZszWQ7kCz0 yZGVyLWNvbGxh cHNlOiBj (more content not included)... Normal [facility] PROF CHEM 8 (BAS METB)on Anion gap [Moles/Vol] 8.3 mmol/L Normal [facility] Comment on above: Performed By: #### I NFLUAB #### [facility] [address] [place] [address] Dr. Deepak Greenfield Calcium [Mass/Vol] 8.5 mg/dL Normal 8.5-10.1 [facility] Comment on above: Performed By: #### I NFLUAB #### [facility] [address] [address] [address] Deepak Greenfield Chloride [Moles/Vol] 104 mmol/L Normal 98-107 [facility] Comment on above: Performed By: #### I NFLUAB #### [facility] [address] [address] [address] Deepak Greenfield CO2 [Moles/Vol] 30.0 mmol/L Normal 21.0-32.0 [facility] Comment on above: Performed By: #### I NFLUAB #### [facility] [address] [address] [address] Deepak Greenfield Creatinine [Mass/Vol] 0.46 mg/dL Critically low 0.70-1.30 [facility] Comment on above: Performed By: #### I NFLUAB #### [facility] [address] [place] [address] Dr. Deepak Greenfield EGFR-AF IRANIAN >60 Normal >=60 [facility] Comment on above: Performed By: #### I NFLUAB #### [facility] [address] [place] [address] Dr. Deepak Greenfield EGFR-NON AF IRANIAN >60 Normal >=60 [facility] Comment on above: Performed By: #### I NFLUAB #### [facility] [address] [address] [address] Deepak Greenfield Glucose [Mass/Vol] 152 mg/dL Critically high 74-106 [facility] Comment on above: Performed By: #### I NFLUAB #### [facility] [address] [address] [address] Deepak Greenfield Potassium [Moles/Vol] 4.3 mmol/L Normal 3.5-5.1 [facility] Comment on above: Performed By: #### I NFLUAB #### [facility] [address] [place] [address] Dr. Deepak Greenfield Sodium [Moles/Vol] 138 mmol/L Normal 136-145 [facility] Comment on above: Performed By: #### I NFLUAB #### [facility] [address] [place] [address] Dr. Deepak Greenfield Urea nitrogen [Mass/Vol] 9.0 mg/dL Normal 7.0-18.0 [facility] Comment on above: Performed By: #### I NFLUAB #### [facility] [address] [place] [address] Dr. Deepak Greenfield Urea nitrogen/Creatinine [Mass ratio] 19.6 mg/mg Normal [facility] Comment on above: Performed By: #### I NFLUAB #### [facility] [address] [place] [address] Dr. Deepak Greenfield AMMONIAon 07-29-2022 Ammonia (P) [Moles/Vol] 69 umol/L Critically high -32 [facility] Comment on above: Performed By: #### A MM #### [facility] [address] [place] [address] Dr. Deepak Greenfield CBC AUTO DIFFon 07-29-2022 BASO # 0.0 103/ul Normal 0.0-0.1 [facility] Comment on above: Performed By: #### M G, CMP #### [facility] [address] [place] [address] Dr. Deepak Greenfield Basophils/100 WBC (Bld) 0.2 % Normal 0.2-2.0 [facility] Comment on above: Performed By: #### M G, CMP #### [facility] [address] [place] [address] Dr. Deepak Greenfield EO # 0.0 103/ul Normal 0.0-0.7 [facility] Comment on above: Performed By: #### M G, CMP #### [facility] [address] [place] [address] Dr. Deepak Greenfield Eosinophils/100 WBC (Bld) 0.0 % Critically low 0.9-7.0 [facility] Comment on above: Performed By: #### M G, CMP #### [facility] [address] [place] [address] Dr. Deepak Greenfield Erythrocyte distribution width (RBC) [Ratio] 13.2 % Normal 11.0-15.0 [facility] Comment on above: Performed By: #### M G, CMP #### [facility] [address] [place] [address] Dr. Deepak Greenfield Hematocrit (Bld) [Volume fraction] 33.1 % Critically low 42.0-54.0 [facility] Comment on above: Performed By: #### M G, CMP #### [facility] [address] [place] [address] Dr. Deepak Greenfield Hemoglobin (Bld) [Mass/Vol] 10.8 g/dL Critically low 14.0-18.0 [facility] Comment on above: Performed By: #### M G, CMP #### [facility] [address] [place] [address] Dr. Deepak Greenfield IG # 0.04 10e3/ul Critically high 0.00-0.03 [facility] Comment on above: Performed By: #### M G, CMP #### [facility] [address] [place] [address] Dr. Deepak Greenfield IG % 0.5 % Normal 0.0-0.5 [facility] Comment on above: Performed By: #### M G, CMP #### [facility] [address] [place] [address] Dr. Deepak Greenfield LYMPH # 1.1 103/ul Critically low 1.2-3.8 [facility] Comment on above: Performed By: #### M G, CMP #### [facility] [address] [place] [address] Dr. Deepak Greenfield Lymphocytes/100 WBC (Bld) 13.6 % Critically low 20.5-60.0 [facility] Comment on above: Performed By: #### M G, CMP #### [facility] [address] [place] [address] Dr. Deepak Greenfield MANUAL DIFF REQ NO Normal [facility] Comment on above: Performed By: #### M G, CMP #### [facility] [address] [place] [address] Dr. Deepak Greenfield MCH (RBC) [Entitic mass] 32.2 pg Normal 25.9-34.0 [facility] Comment on above: Performed By: #### M G, CMP #### [facility] [address] [place] [address] Dr. Deepak Greenfield MCHC (RBC) [Mass/Vol] 32.6 g/dL Normal 29.9-35.2 [facility] Comment on above: Performed By: #### M G, CMP #### [facility] [address] [place] [address] Dr. Deepak Greenfield MCV (RBC) [Entitic vol] 98.8 fL Critically high 80.0-94.0 [facility] Comment on above: Performed By: #### M G, CMP #### [facility] [address] [place] [address] Dr. Deepak Greenfield MONO # 0.3 103/ul Normal 0.3-0.8 [facility] Comment on above: Performed By: #### M G, CMP #### [facility] [address] [place] [address] Dr. Deepak Greenfield Monocytes/100 WBC (Bld) 3.8 % Normal 1.7-12.0 [facility] Comment on above: Performed By: #### M G, CMP #### [facility] [address] [place] [address] Dr. Deepak Greenfield NEUT # 6.7 103/ul Critically high 1.4-6.5 [facility] Comment on above: Performed By: #### M G, CMP #### [facility] [address] [place] [address] Dr. Deepak Greenfield Neutrophils/100 WBC (Bld) 81.9 % Critically high 43.0-75.0 [facility] Comment on above: Performed By: #### M G, CMP #### [facility] [address] [place] [address] Dr. Deepak Greenfield Platelet mean volume (Bld) [Entitic vol] 9.6 fL Normal 9.5-13.5 [facility] Comment on above: Performed By: #### M G, CMP #### [facility] [address] [address] [address] Deepak Greenfield PLT 257 103/ul Normal 150-450 [facility] Comment on above: Performed By: #### M G, CMP #### [facility] [address] [address] [address] Deepak Greenfield RBC 3.35 106/ul Critically low 4.70-6.10 [facility] Comment on above: Performed By: #### M G, CMP #### [facility] [address] [address] [address] Deepak Greenfield WBC 8.2 103/ul Normal 4.0-11.0 [facility] Comment on above: Performed By: #### M G, CMP #### [facility] [address] [place] [address] Dr. Deepak Greenfield LACTATE/LACTIC ACIDon 2022 Lactate [Moles/Vol] 1.1 mmol/L Normal 0.4-2.0 [facility] Comment on above: Performed By: #### I NFLUAB #### [facility] [address] [place] [address] Dr. Deepak Greenfield PROF CHEM 8 (BAS METB)on Anion gap [Moles/Vol] 9.4 mmol/L Normal [facility] Comment on above: Performed By: #### I NFLUAB #### [facility] [address] [place] [address] Dr. Deepak Greenfield Calcium [Mass/Vol] 8.0 mg/dL Critically low 8.5-10.1 [facility] Comment on above: Performed By: #### I NFLUAB #### [facility] [address] [place] [address] Dr. Deepak Greenfield Chloride [Moles/Vol] 105 mmol/L Normal 98-107 [facility] Comment on above: Performed By: #### I NFLUAB #### [facility] [address] [place] [address] Dr. Deepak Greenfield CO2 [Moles/Vol] 30.7 mmol/L Normal 21.0-32.0 [facility] Comment on above: Performed By: #### I NFLUAB #### [facility] [address] [address] [address] Deepak Greenfield Creatinine [Mass/Vol] 0.66 mg/dL Critically low 0.70-1.30 [facility] Comment on above: Performed By: #### I NFLUAB #### [facility] [address] [address] [address] Deepak Greenfield EGFR-AF IRANIAN >60 Normal >=60 [facility] Comment on above: Performed By: #### I NFLUAB #### [facility] [address] [address] [address] Deepak Greenfield EGFR-NON AF IRANIAN >60 Normal >=60 [facility] Comment on above: Performed By: #### I NFLUAB #### [facility] [address] [place] [address] Dr. Deepak Greenfield Glucose [Mass/Vol] 177 mg/dL Critically high 74-106 [facility] Comment on above: Performed By: #### I NFLUAB #### [facility] [address] [address] [address] Deepak Greenfield Potassium [Moles/Vol] 4.1 mmol/L Normal 3.5-5.1 [facility] Comment on above: Performed By: #### I NFLUAB #### [facility] [address] [address] [address] Deepak Greenfield Sodium [Moles/Vol] 141 mmol/L Normal 136-145 [facility] Comment on above: Performed By: #### I NFLUAB #### [facility] [address] [address] [address] Deepak Greenfield Urea nitrogen [Mass/Vol] 9.0 mg/dL Normal 7.0-18.0 [facility] Comment on above: Performed By: #### I NFLUAB #### [facility] [address] [address] [address] Deepak Greenfield Urea nitrogen/Creatinine [Mass ratio] 13.6 mg/mg Normal [facility] Comment on above: Performed By: #### I NFLUAB #### [facility] [address] [place] [address] Dr. Deepak Greenfield AMMONIAon 07-28-2022 Ammonia (P) [Moles/Vol] 68 umol/L Critically high -32 [facility] Comment on above: Performed By: #### B MP #### [facility] [address] [place] [address] Dr. Deepak Greenfield CBC AUTO DIFFon 07-28-2022 BASO # 0.0 103/ul Normal 0.0-0.1 [facility] Comment on above: Performed By: #### C BC #### [facility] [address] [place] [address] Dr. Deepak Greenfield Basophils/100 WBC (Bld) 0.3 % Normal 0.2-2.0 [facility] Comment on above: Performed By: #### C BC #### [facility] [address] [place] [address] Dr. Deepak Greenfield EO # 0.0 103/ul Normal 0.0-0.7 [facility] Comment on above: Performed By: #### C BC #### [facility] [address] [place] [address] Dr. Deepak Greenfield Eosinophils/100 WBC (Bld) 0.0 % Critically low 0.9-7.0 [facility] Comment on above: Performed By: #### C BC #### [facility] [address] [place] [address] Dr. Deepak Greenfield Erythrocyte distribution width (RBC) [Ratio] 13.3 % Normal 11.0-15.0 [facility] Comment on above: Performed By: #### C BC #### [facility] [address] [place] [address] Dr. Deepak Greenfield Hematocrit (Bld) [Volume fraction] 37.0 % Critically low 42.0-54.0 [facility] Comment on above: Performed By: #### C BC #### [facility] [address] [place] [address] Dr. Deepak Greenfield Hemoglobin (Bld) [Mass/Vol] 12.3 g/dL Critically low 14.0-18.0 [facility] Comment on above: Performed By: #### C BC #### [facility] [address] [place] [address] Dr. Deepak Greenfield IG # 0.06 10e3/ul Critically high 0.00-0.03 [facility] Comment on above: Performed By: #### C BC #### [facility] [address] [place] [address] Dr. Deepak Greenfield IG % 0.5 % Normal 0.0-0.5 [facility] Comment on above: Performed By: #### C BC #### [facility] [address] [place] [address] Dr. Deepak Greenfield LYMPH # 2.9 103/ul Normal 1.2-3.8 [facility] Comment on above: Performed By: #### C BC #### [facility] [address] [place] [address] Dr. Deepak Greenfield Lymphocytes/100 WBC (Bld) 23.5 % Normal 20.5-60.0 [facility] Comment on above: Performed By: #### C BC #### [facility] [address] [place] [address] Dr. Deepak Greenfield MANUAL DIFF REQ NO Normal [facility] Comment on above: Performed By: #### C BC #### [facility] [address] [place] [address] Dr. Deepak Greenfield MCH (RBC) [Entitic mass] 32.4 pg Normal 25.9-34.0 [facility] Comment on above: Performed By: #### C BC #### [facility] [address] [place] [address] Dr. Deepak Greenfield MCHC (RBC) [Mass/Vol] 33.2 g/dL Normal 29.9-35.2 [facility] Comment on above: Performed By: #### C BC #### [facility] [address] [place] [address] Dr. Deepak Greenfield MCV (RBC) [Entitic vol] 97.4 fL Critically high 80.0-94.0 [facility] Comment on above: Performed By: #### C BC #### [facility] [address] [place] [address] Dr. Deepak Greenfield MONO # 1.0 103/ul Critically high 0.3-0.8 [facility] Comment on above: Performed By: #### C BC #### [facility] [address] [place] [address] Dr. Deepak Greenfield Monocytes/100 WBC (Bld) 8.0 % Normal 1.7-12.0 [facility] Comment on above: Performed By: #### C BC #### [facility] [address] [place] [address] Dr. Deepak Greenfield NEUT # 8.3 103/ul Critically high 1.4-6.5 [facility] Comment on above: Performed By: #### C BC #### [facility] [address] [place] [address] Dr. Deepak Greenfield Neutrophils/100 WBC (Bld) 67.7 % Normal 43.0-75.0 [facility] Comment on above: Performed By: #### C BC #### [facility] [address] [place] [address] Dr. Deepak Greenfield Platelet mean volume (Bld) [Entitic vol] 9.7 fL Normal 9.5-13.5 [facility] Comment on above: Performed By: #### C BC #### [facility] [address] [place] [address] Dr. Deepak Greenfield PLT 325 103/ul Normal 150-450 [facility] Comment on above: Performed By: #### C BC #### [facility] [address] [place], [place] [id number] Dr. Deepak Greenfield RBC 3.80 106/ul Critically low 4.70-6.10 [facility] Comment on above: Performed By: #### C BC #### [facility] [address] [place] [address] Dr. Deepak Greenfield WBC 12.2 103/ul Critically high 4.0-11.0 [facility] Comment on above: Performed By: #### C BC #### [facility] [address] [place] [address] Dr. Deepak Greenfield CULTURE BLOODon 07-28-2022 Microscopic examination of blood, culture Culture Observations: NO GROWTH AT 5 DAYS. Normal [facility] Comment on above: Performed By: #### B [id number] #### [facility] [address] [place] [address] Dr. Deepak Greenfield Microscopic examination of blood, culture Culture Observations: NO GROWTH AT 5 DAYS. Normal [facility] Comment on above: Performed By: #### C BC #### [facility] [address] [place] [address] Dr. Deepak Greenfield LACTATE/LACTIC ACIDon 2022 Lactate [Moles/Vol] 2.5 mmol/L Critically high 0.4-2.0 [facility] Comment on above: Performed By: #### C VDTBH #### [facility] [address] [place] [address] Dr. Deepak Greenfield PROF 14(COMP METB)on 023 Albumin [Mass/Vol] 3.1 g/dL Critically low 3.4-5.0 [facility] Comment on above: Performed By: #### C BC #### [facility] [address] [place] [address] Dr. Deepak Greenfield Albumin/Globulin [Mass ratio] 0.7 {ratio} Normal [facility] Comment on above: Performed By: #### C BC #### [facility] [address] [place] [address] Dr. Deepak Greenfield ALP [Catalytic activity/Vol] 51 U/L Normal 46-116 [facility] Comment on above: Performed By: #### C BC #### [facility] [address] [place] [address] Dr. Deepak Greenfield ALT [Catalytic activity/Vol] 106 U/L Critically high 16-63 [facility] Comment on above: Performed By: #### C BC #### [facility] [address] [place] [address] Dr. Deepak Greenfield Anion gap [Moles/Vol] 14.2 mmol/L Normal [facility] Comment on above: Performed By: #### C BC #### [facility] [address] [place] [address] Dr. Deepak Greenfield AST [Catalytic activity/Vol] 81 U/L Critically high 15-37 [facility] Comment on above: Performed By: #### C BC #### [facility] [address] [address] [address] Deepak Greenfield Bilirubin [Mass/Vol] 0.4 mg/dL Normal 0.2-1.0 [facility] Comment on above: Performed By: #### C BC #### [facility] [address] [place] [address] Dr. Deepak Greenfield Calcium [Mass/Vol] 8.9 mg/dL Normal 8.5-10.1 [facility] Comment on above: Performed By: #### C BC #### [facility] [address] [place] [address] Dr. Deepak Greenfield Chloride [Moles/Vol] 105 mmol/L Normal 98-107 [facility] Comment on above: Performed By: #### C BC #### [facility] [address] [place] [address] Dr. Deepak Greenfield CO2 [Moles/Vol] 27.9 mmol/L Normal 21.0-32.0 [facility] Comment on above: Performed By: #### C BC #### [facility] [address] [place] [address] Dr. Deepak Greenfield Creatinine [Mass/Vol] 0.77 mg/dL Normal 0.70-1.30 [facility] Comment on above: Performed By: #### C BC #### [facility] [address] [place] [address] Dr. Deepak Greenfield EGFR-AF IRANIAN >60 Normal >=60 [facility] Comment on above: Performed By: #### C BC #### [facility] [address] [place] [address] Dr. Deepak Greenfield EGFR-NON AF IRANIAN >60 Normal >=60 [facility] Comment on above: Performed By: #### C BC #### [facility] [address] [address] [address] Deepak Greenfield Globulin (S) [Mass/Vol] 4.3 g/dL Normal [facility] Comment on above: Performed By: #### C BC #### [facility] [address] [address] [address] Deepak Greenfield Glucose [Mass/Vol] 162 mg/dL Critically high 74-106 [facility] Comment on above: Performed By: #### C BC #### [facility] [address] [place] [address] Dr. Deepak Greenfield Potassium [Moles/Vol] 4.1 mmol/L Normal 3.5-5.1 [facility] Comment on above: Performed By: #### C BC #### [facility] [address] [place] [address] Dr. Deepak Greenfield Protein [Mass/Vol] 7.4 g/dL Normal 6.4-8.2 [facility] Comment on above: Performed By: #### C BC #### [facility] [address] [place] [address] Dr. Deepak Greenfield Sodium [Moles/Vol] 143 mmol/L Normal 136-145 [facility] Comment on above: Performed By: #### C BC #### [facility] [address] [place] [address] Dr. Deepak Greenfield Urea nitrogen [Mass/Vol] 12.0 mg/dL Normal 7.0-18.0 [facility] Comment on above: Performed By: #### C BC #### [facility] [address] [place] [address] Dr. Deepak Greenfield Urea nitrogen/Creatinine [Mass ratio] 15.6 mg/mg Normal [facility] Comment on above: Performed By: #### C BC #### [facility] [address] [place] [address] Dr. Deepak Greenfield RESPIRATORY PANEL PLUSon Adenovirus Not detected Normal NOT DETECTED [facility] Comment on above: Performed By: #### B MP #### [facility] [address] [place] [address] Dr. Deepak Ocampo Parapertusis Not detected Normal NOT DETECTED [facility] Comment on above: Performed By: #### B MP #### [facility] [address] [place] [address] Dr. Deepak Ocampo Pertussis Not detected Normal NOT DETECTED [facility] Comment on above: Performed By: #### B MP #### [facility] [address] [address] [address] Deepak Greenfield Chlamydia Pneumoniae Not detected Normal NOT DETECTED [facility] Comment on above: Performed By: #### B MP #### [facility] [address] [place] [address] Dr. Deepak Greenfield Coronavirus 229E Not detected Normal NOT DETECTED [facility] Comment on above: Performed By: #### B MP #### [facility] [address] [place] [address] Dr. Deepak Greenfield Coronavirus HKU1 Not detected Normal NOT DETECTED [facility] Comment on above: Performed By: #### B MP #### [facility] [address] [place] [address] Dr. Deepak Greenfield Coronavirus NL63 Not detected Normal NOT DETECTED [facility] Comment on above: Performed By: #### B MP #### [facility] [address] [place] [address] Dr. Deepak Greenfield Coronavirus OC43 Not detected Normal NOT DETECTED [facility] Comment on above: Performed By: #### B MP #### [facility] [address] [place] [address] Dr. Deepak Greenfield Influenza A H1 Not detected Normal NOT DETECTED [facility] Comment on above: Performed By: #### B MP #### [facility] [address] [place] [address] Dr. Deepak Greenfield Influenza A H1 2009 Not detected Normal NOT DETECTED [facility] Comment on above: Performed By: #### B MP #### [facility] [address] [place] [address] Dr. Deepak Greenfield Influenza A H3 Not detected Normal NOT DETECTED [facility] Comment on above: Performed By: #### B MP #### [facility] [address] [address] [address] Deepak Greenfield Influenza B Not detected Normal NOT DETECTED [facility] Comment on above: Performed By: #### B MP #### [facility] [address] [place] [address] Dr. Deepak Greenfield Metapneumovirus Detected Abnormal NOT DETECTED [facility] Comment on above: Performed By: #### B MP #### [facility] [address] [address] [address] Deepak Greenfield Mycoplas. Pneumoniae Not detected Normal NOT DETECTED [facility] Comment on above: Performed By: #### B MP #### [facility] [address] [place] [address] Dr. Deepak Greenfield Parainfluenza 1 Not detected Normal NOT DETECTED [facility] Comment on above: Performed By: #### B MP #### [facility] [address] [place] [address] Dr. Deepak Greenfield Parainfluenza 2 Not detected Normal NOT DETECTED [facility] Comment on above: Performed By: #### B MP #### [facility] [address] [place] [address] Dr. Deepak Greenfield Parainfluenza 3 Not detected Normal NOT DETECTED [facility] [facility] Comment on above: Performed By: #### B MP #### [facility] [address] [place] [address] Dr. Deepak Greenfield Parainfluenza 4 Not detected Normal NOT DETECTED [facility] Comment on above: Performed By: #### B MP #### [facility] [address] [address] [address] Deepak Greenfield Rhino/Enterovirus Not detected Normal NOT DETECTED [facility] Comment on above: Performed By: #### B MP #### [facility] [address] [place] [address] Dr. Deepak Greenfield RP2 Header 1 RESPIRATORY PANEL: VIRUSES Normal [facility] Comment on above: Performed By: #### B MP #### [facility] [address] [address] [address] Deepak Greenfield RP2 Header 2 RESPIRATORY PANEL: BACTERIA Normal [facility] Comment on above: Performed By: #### B MP #### [facility] [address] [place] [address] Dr. Deepak Greenfield RSV Not detected Normal NOT DETECTED [facility] Comment on above: Performed By: #### B MP #### [facility] [address] [address] [address] Deepak Greenfield SARS-CoV-2 (COVID-19) RNA CINDY+probe Ql (Unsp spec) Not detected Normal NOT DETECTED [facility] Comment on above: Performed By: #### B MP #### [facility] [address] [place] [address] Dr. Deepak Greenfield XR CHEST 1 Von 07-28-2022 XR CHEST 1 V ONE-VIEW CHEST RADIOGRAPH, 07/28/2022 7:44 PM EDT COMPARISON: Chest, 07/26/2022. CLINICAL HISTORY: SHORTNESS OF BREATH Findings and impression: 1. Lung volumes are diminished with crowding of bronchopulmonary vasculature and slight accentuation of cardiac silhouette. Patient is also slightly rotated to the left. 2. Mild hazy opacity in the left mid to lower lung zone may be artifactual from patient rotation, diminished lung volumes although subtle inflammatory infectious pneumonitis would be difficult to exclude. 3. Normal heart size. 4. Left-sided vagal stimulator redemonstrated. 5. Some prominent gas-filled loops of bowel seen in the visualized portion of the upper abdomen. If this is further clinical concern correlation with dedicated 2 view abdomen. Electronically authenticated by: Akua PEREZ Date: 2022-07-28 20:23 Normal [facility] AMMONIAon 07-27-2022 Ammonia (P) [Moles/Vol] 76 umol/L Critically high [facility] Comment on above: Performed By: #### M G, CMP #### [facility] [address] [place] [address] Dr. Deepka Greenfield CBC W MANUAL DIFFon 07-28-19 23 ATYPICAL LYMPH # Normal [facility] Comment on above: Performed By: #### M G, CMP #### [facility] [address] [address] [address] Deepak Greenfield ATYPICAL LYMPH % Normal [facility] Comment on above: Performed By: #### M G, CMP #### [facility] [address] [address] [address] Deepak Greenfield BAND # 0.4 103/ul Critically high 0.0-0.3 [facility] Comment on above: Performed By: #### M G, CMP #### [facility] [address] [address] [address] Deepak Greenfield BAND % 4 % Normal 0-5 [facility] Comment on above: Performed By: #### M G, CMP #### [facility] [address] [place] [address] Dr. Deepak Greenfield BASOM # 0.00 103/ul Normal 0.00-0.10 [facility] Comment on above: Performed By: #### M G, CMP #### [facility] [address] [place] [address] Dr. Deepak Greenfield BASOM % 0.0 % Critically low 0.2-2.0 [facility] Comment on above: Performed By: #### M G, CMP #### [facility] [address] [place] [address] Dr. Deepak Greenfield BLAST # Normal [facility] Comment on above: Performed By: #### M G, CMP #### [facility] [address] [place] [address] Dr. Deepak Greenfield BLAST % Normal [facility] Comment on above: Performed By: #### M G, CMP #### [facility] [address] [place] [address] Dr. Deepak Greenfield CORRECTED WBC Normal 4.0-11.0 [facility] Comment on above: Performed By: #### M G, CMP #### [facility] [address] [place] [address] Dr. Deepak Greenfield EOS # 0.00 103/ul Normal 0.00-0.70 [facility] Comment on above: Performed By: #### M G, CMP #### [facility] [address] [address] [address] Deepak Greenfield EOS% 0.0 % Critically low 0.9-7.0 [facility] Comment on above: Performed By: #### M G, CMP #### [facility] [address] [address] [address] Deepak Greenfield HCT 29.6 % Critically low 42.0-54.0 [facility] Comment on above: Performed By: #### M G, CMP #### [facility] [address] [address] [address] Deepak Greenfield HGB 10.4 g/dl Critically low 14.0-18.0 [facility] Comment on above: Performed By: #### M G, CMP #### [facility] [address] [address] [address] Deepak Greenfield LYMPHM # 0.71 103/ul Critically low 1.20-3.80 [facility] Comment on above: Performed By: #### M G, CMP #### [facility] [address] [address] [address] Deepak Greenfield LYMPHM% 8.0 % Critically low 20.5-60.0 [facility] Comment on above: Performed By: #### M G, CMP #### [facility] [address] [address] [address] Deepak Greenfield MCH 33.0 pg Normal 25.9-34.0 [facility] Comment on above: Performed By: #### M G, CMP #### [facility] [address] [address] [address] Deepak Greenfield MCHC 35.1 g/dl Normal 29.9-35.2 [facility] Comment on above: Performed By: #### M G, CMP #### [facility] [address] [address] [address] Deepak Greenfield MCV 94.0 fL Normal 80.0-94.0 [facility] Comment on above: Performed By: #### M G, CMP #### [facility] [address] [address] [address] Deepak Greenfield METAMYELOCYTE # Normal [facility] Comment on above: Performed By: #### M G, CMP #### [facility] [address] [place] [address] Dr. Deepak Greenfield METAMYELOCYTE % Normal [facility] Comment on above: Performed By: #### M G, CMP #### [facility] [address] [address] [address] Deepak Greenfield MONOM# 0.71 103/ul Normal 0.30-0.80 [facility] Comment on above: Performed By: #### M G, CMP #### [facility] [address] [place] [address] Dr. Deepak Greenfield MONOM% 8.0 % Normal 1.7-12.0 [facility] Comment on above: Performed By: #### M G, CMP #### [facility] [address] [place] [address] Dr. Deepak Greenfield MPV 9.6 fL Normal 9.5-13.5 [facility] Comment on above: Performed By: #### M G, CMP #### [facility] [address] [place] [address] Dr. Deepak Greenfield MYELOCYTE # Normal [facility] Comment on above: Performed By: #### M G, CMP #### [facility] [address] [place] [address] Dr. Deepak Greenfield MYELOCYTE % Normal [facility] Comment on above: Performed By: #### M G, CMP #### [facility] [address] [place] [address] Dr. Deepak Greenfield NRBC Normal [facility] Comment on above: Performed By: #### M G, CMP #### [facility] [address] [place] [address] Dr. Deepak Greenfield PLT 267 103/ul Normal 150-450 [facility] Comment on above: Performed By: #### M G, CMP #### [facility] [address] [place] [address] Dr. Deepak Greenfield RBC 3.15 106/ul Critically low 4.70-6.10 [facility] Comment on above: Performed By: #### M G, CMP #### [facility] [address] [address] [address] Deepak Greenfield RDW 12.9 % Normal 11.0-15.0 [facility] Comment on above: Performed By: #### M G, CMP #### [facility] [address] [address] [address] Deepak Greenfield SEG # 7.12 103/ul Critically high 1.40-6.50 [facility] Comment on above: Performed By: #### M G, CMP #### [facility] [address] [place] [address] Dr. Deepak Greenfield SEG % 80.0 % Critically high 43.0-75.0 [facility] Comment on above: Performed By: #### M G, CMP #### [facility] [address] [place] [address] Dr. Deepak Greenfield WBC 8.9 103/ul Normal 4.0-11.0 [facility] Comment on above: Performed By: #### M G, CMP #### [facility] [address] [place] [address] Dr. Deepak Greenfield PROF CHEM 8 (BAS METB)on Anion gap [Moles/Vol] 12.4 mmol/L Normal [facility] Comment on above: Performed By: #### C BC #### [facility] [address] [place] [address] Dr. Deepak Greenfield Calcium [Mass/Vol] 8.2 mg/dL Critically low 8.5-10.1 [facility] Comment on above: Performed By: #### C BC #### [facility] [address] [place] [address] Dr. Deepak Greenfield Chloride [Moles/Vol] 101 mmol/L Normal 98-107 [facility] Comment on above: Performed By: #### C BC #### [facility] [address] [place] [address] Dr. Deepak Greenfield CO2 [Moles/Vol] 25.0 mmol/L Normal 21.0-32.0 [facility] Comment on above: Performed By: #### C BC #### [facility] [address] [place] [address] Dr. Deepak Greenfield Creatinine [Mass/Vol] 0.53 mg/dL Critically low 0.70-1.30 [facility] Comment on above: Performed By: #### C BC #### [facility] [address] [place] [address] Dr. Deepak Greenfield EGFR-AF IRANIAN >60 Normal >=60 [facility] Comment on above: Performed By: #### C BC #### [facility] [address] [place] [address] Dr. Deepak Greenfield EGFR-NON AF IRANIAN >60 Normal >=60 [facility] Comment on above: Performed By: #### C BC #### [facility] [address] [place] [address] Dr. Deepak Greenfield Glucose [Mass/Vol] 161 mg/dL Critically high 74-106 [facility] Comment on above: Performed By: #### C BC #### [facility] [address] [place] [address] Dr. Deepak Greenfield Potassium [Moles/Vol] 4.4 mmol/L Normal 3.5-5.1 [facility] Comment on above: Performed By: #### C BC #### [facility] [address] [place] [address] Dr. Deepak Greenfield Sodium [Moles/Vol] 134 mmol/L Critically low 136-145 [facility] Comment on above: Performed By: #### C BC #### [facility] [address] [place] [address] Dr. Deepak Greenfield Urea nitrogen [Mass/Vol] 13.0 mg/dL Normal 7.0-18.0 [facility] Comment on above: Performed By: #### C BC #### [facility] [address] [place] [address] Dr. Deepak Greenfield Urea nitrogen/Creatinine [Mass ratio] 24.5 mg/mg Normal [facility] Comment on above: Performed By: #### C BC #### [facility] [address] [address] [address] Deepak Greenfield AMMONIAon 07-26-2022 Ammonia (P) [Moles/Vol] 56 umol/L Critically high 11-32 [facility] Comment on above: Performed By: #### M G, CMP #### [facility] [address] [place] [address] Dr. Deepak Greenfield CARDIAC BEATRIS ADMITon 023 CK [Catalytic activity/Vol] 83 U/L Normal 39-308 [facility] Comment on above: Performed By: #### B MP #### [facility] [address] [place] [address] Dr. Deepak Greenfield CK.MB [Mass/Vol] 0.86 ng/mL Normal <=3.60 [facility] Comment on above: Performed By: #### B MP #### [facility] [address] [place] [address] Dr. Deepak Greenfield HSTROP 7.4 pg/mL Normal 4.0-76.1 [facility] Comment on above: Result Comment: CUT- OFF POINTS HAVE BEEN ESTABLISHED BASED ON THE FOURTH UNIVERSAL DEFINITIONS OF MYOCARDIAL INFARCTION. THE UPPER REFERENCE LIMIT (URL) OF TROPONIN, DEFINED THE 99TH PERCENTILE OF cTnI DISTRIBUTION IN A REFERENCE POPULATION, HAS BEEN CONFIRMED THE DECISION THRESHOLD FOR PR DIAGNOSIS. Performed By: #### B MP #### [facility] [address] [place] [address] Dr. Deepak Greenfield VALE 46 ng/mL Normal 16-96 [facility] Comment on above: Performed By: #### B MP #### [facility] [address] [place] [address] Dr. Deepak Greenfield CBC AUTO DIFFon 07-26-2022 BASO # 0.1 103/ul Normal 0.0-0.1 [facility] Comment on above: Performed By: #### M G, CMP #### [facility] [address] [place] [address] Dr. Deepak Greenfield Basophils/100 WBC (Bld) 0.5 % Normal 0.2-2.0 [facility] Comment on above: Performed By: #### M G, CMP #### [facility] [address] [place] [address] Dr. Deepak Greenfield EO # 0.2 103/ul Normal 0.0-0.7 [facility] Comment on above: Performed By: #### M G, CMP #### [facility] [address] [place] [address] Dr. Deepak Greenfield Eosinophils/100 WBC (Bld) 2.1 % Normal 0.9-7.0 [facility] Comment on above: Performed By: #### M G, CMP #### [facility] [address] [place] [address] Dr. Deepak Greenfield Erythrocyte distribution width (RBC) [Ratio] 13.2 % Normal 11.0-15.0 [facility] Comment on above: Performed By: #### M G, CMP #### [facility] [address] [place] [address] Dr. Deepak Greenfield Hematocrit (Bld) [Volume fraction] 36.7 % Critically low 42.0-54.0 [facility] Comment on above: Performed By: #### M G, CMP #### [facility] [address] [place] [address] Dr. Deepak Greenfield Hemoglobin (Bld) [Mass/Vol] 12.4 g/dL Critically low 14.0-18.0 [facility] Comment on above: Performed By: #### M G, CMP #### [facility] [address] [place] [address] Dr. Deepak Greenfield IG # 0.04 10e3/ul Critically high 0.00-0.03 [facility] Comment on above: Performed By: #### M G, CMP #### [facility] [address] [place] [address] Dr. Deepak Greenfield IG % 0.4 % Normal 0.0-0.5 [facility] Comment on above: Performed By: #### M G, CMP #### [facility] [address] [place] [address] Dr. Deepak Greenfield LYMPH # 1.7 103/ul Normal 1.2-3.8 [facility] Comment on above: Performed By: #### M G, CMP #### [facility] [address] [place] [address] Dr. Deepak Greenfield Lymphocytes/100 WBC (Bld) 15.6 % Critically low 20.5-60.0 [facility] Comment on above: Performed By: #### M G, CMP #### [facility] [address] [place] [address] Dr. Deepak Greenfield MANUAL DIFF REQ NO Normal [facility] Comment on above: Performed By: #### M G, CMP #### [facility] [address] [place] [address] Dr. Deepak Greenfield MCH (RBC) [Entitic mass] 32.5 pg Normal 25.9-34.0 [facility] Comment on above: Performed By: #### M G, CMP #### [facility] [address] [place] [address] Dr. Deepak Greenfield MCHC (RBC) [Mass/Vol] 33.8 g/dL Normal 29.9-35.2 [facility] Comment on above: Performed By: #### M G, CMP #### [facility] [address] [place] [address] Dr. Deepak Greenfield MCV (RBC) [Entitic vol] 96.3 fL Critically high 80.0-94.0 [facility] Comment on above: Performed By: #### M G, CMP #### [facility] [address] [place] [address] Dr. Deepak Greenfield MONO # 1.4 103/ul Critically high 0.3-0.8 [facility] Comment on above: Performed By: #### M G, CMP #### [facility] [address] [place] [address] Dr. Deepak Greenfield Monocytes/100 WBC (Bld) 12.8 % Critically high 1.7-12.0 [facility] Comment on above: Performed By: #### M G, CMP #### [facility] [address] [place] [address] Dr. Deepak Greenfield NEUT # 7.4 103/ul Critically high 1.4-6.5 [facility] Comment on above: Performed By: #### M G, CMP #### [facility] [address] [place] [address] Dr. Deepak Greenfield Neutrophils/100 WBC (Bld) 68.6 % Normal 43.0-75.0 [facility] Comment on above: Performed By: #### M G, CMP #### [facility] [address] [place] [address] Dr. Deepak Greenfield Platelet mean volume (Bld) [Entitic vol] 9.5 fL Normal 9.5-13.5 [facility] Comment on above: Performed By: #### M G, CMP #### [facility] [address] [place] [address] Dr. Deepak Greenfield PLT 314 103/ul Normal 150-450 [facility] Comment on above: Performed By: #### Karishma G, CMP #### [facility] [address] [place] [address] Dr. Deepak Greenfield RBC 3.81 106/ul Critically low 4.70-6.10 [facility] Comment on above: Performed By: #### M G, CMP #### [facility] [address] [place] [address] Dr. Deepak Greenfield WBC 10.8 103/ul Normal 4.0-11.0 [facility] Comment on above: Performed By: #### M G, CMP #### [facility] [address] [place] [address] Dr. Deepak Greenfield [facility]on SARS-CoV-2 (COVID-19) RNA CINDY+probe Ql (Unsp spec) Not detected Normal NOT DETECTED [facility] Comment on above: Result Comment: When diagnostic testing is negative, the possibility of a false negative should be considered in the context of a patient's recent exposures and the presence of clinical signs and symptoms consistent with SARS-CoV-2. This test is not yet approved or cleared by the [place] FDA. When there are no FDA-approved or cleared tests available, and other criteria are met, FDA can make tests available under an emergency access mechanism called an Emergency Use Authorization (EUA). The EUA for this test is supported by the Senior Clinical Sas Programmer of Health and Human Service's declaration that circumstances exist to justify the emergency use of in vitro diagnostics for the detection and/or diagnosis of the virus that causes COVID-19. This EUA will remain in effect for the duration of the COVID-19 declaration justifying emergency of IVDs, unless it is terminated or revoked by the FDA (after which the test may no longer be used). Performed By: #### C VDTBH #### [facility] [address] [place] [address] Dr. Deepak Greenfield INFLUENZA A AND B AGon 07-26 [facility] SEE BELOW Normal [facility] Comment on above: Result Comment: Nega tive for Flu A protein angiten. Infection due to Flu A cannot be ruled out. Flu A angiten in the sample may be below the detection limit of the test. Performed By: #### I NFLUAB #### [facility] [address] [place] [address] Dr. Deepak Greenfield [facility] SEE BELOW Normal [facility] Comment on above: Result Comment: Nega tive for Flu B protein antigen. Infection due to Flu B cannot be ruled out. Flu B antigen in the sample may be below the detection limit of the test. Performed By: #### I NFLUAB #### [facility] [address] [place] [address] Dr. Deepak Greenfield INFLUENZA A AG Negative Normal NEGATIVE SEE COMMENT [facility] Comment on above: Performed By: #### I NFLUAB #### [facility] [address] [place] [address] Dr. Deepak Greenfield INFLUENZA B AG Negative Normal NEGATIVE SEE COMMENT [facility] Comment on above: Performed By: #### I NFLUAB #### [facility] [address] [place] [address] Dr. Deepak Greenfield LACTATE/LACTIC ACIDon 2022 Lactate [Moles/Vol] 1.2 mmol/L Normal 0.4-2.0 [facility] Comment on above: Performed By: #### M G, CMP #### [facility] [address] [address] [address] Deepak Greenfield PROF 14(COMP METB)on 023 Albumin [Mass/Vol] 3.3 g/dL Critically low 3.4-5.0 [facility] Comment on above: Performed By: #### B MP #### [facility] [address] [place] [address] Dr. Deepak Greenfield Albumin/Globulin [Mass ratio] 0.8 {ratio} Normal [facility] Comment on above: Performed By: #### B MP #### [facility] [address] [place] [address] Dr. Deepak Greenfield ALP [Catalytic activity/Vol] 45 U/L Critically low 46-116 [facility] Comment on above: Performed By: #### B MP #### [facility] [address] [place] [address] Dr. Deepak Greenfield ALT [Catalytic activity/Vol] 114 U/L Critically high 16-63 [facility] Comment on above: Performed By: #### B MP #### [facility] [address] [place] [address] Dr. Deepak Greenfield Anion gap [Moles/Vol] 14.5 mmol/L Normal [facility] Comment on above: Performed By: #### B MP #### [facility] [address] [place] [address] Dr. Deepak Greenfield AST [Catalytic activity/Vol] 71 U/L Critically high 15-37 [facility] Comment on above: Performed By: #### B MP #### [facility] [address] [place] [address] Dr. Deepak Greenfield Bilirubin [Mass/Vol] 0.7 mg/dL Normal 0.2-1.0 [facility] Comment on above: Performed By: #### B MP #### [facility] [address] [place] [address] Dr. Deepak Greenfield Calcium [Mass/Vol] 9.1 mg/dL Normal 8.5-10.1 [facility] Comment on above: Performed By: #### B MP #### [facility] [address] [place] [address] Dr. Deepak Greenfield Chloride [Moles/Vol] 98 mmol/L Normal 98-107 [facility] [facility] Comment on above: Performed By: #### B MP #### [facility] [address] [address] [address] Deepak Greenfield CO2 [Moles/Vol] 27.4 mmol/L Normal 21.0-32.0 [facility] Comment on above: Performed By: #### B MP #### [facility] [address] [place] [address] Dr. Deepak Greenfield Creatinine [Mass/Vol] 0.65 mg/dL Critically low 0.70-1.30 [facility] Comment on above: Performed By: #### B MP #### [facility] [address] [place] [address] Dr. Deepak Greenfield EGFR-AF IRANIAN >60 Normal >=60 [facility] Comment on above: Performed By: #### B MP #### [facility] [address] [place] [address] Dr. Deepak Greenfield EGFR-NON AF IRANIAN >60 Normal >=60 [facility] Comment on above: Performed By: #### B MP #### [facility] [address] [place] [address] Dr. Deepak Greenfield Globulin (S) [Mass/Vol] 4.2 g/dL Normal [facility] Comment on above: Performed By: #### B MP #### [facility] [address] [place] [address] Dr. Deepak Greenfield Glucose [Mass/Vol] 105 mg/dL Normal 74-106 [facility] Comment on above: Performed By: #### B MP #### [facility] [address] [place] [address] Dr. Deepak Greenfield Potassium [Moles/Vol] 3.9 mmol/L Normal 3.5-5.1 [facility] Comment on above: Performed By: #### B MP #### [facility] [address] [place], [place] [address] Dr. Deepak Greenfield Protein [Mass/Vol] 7.5 g/dL Normal 6.4-8.2 [facility] Comment on above: Performed By: #### B MP #### [facility] [address] [place], [place] [address] Dr. Deepak Greenfield Sodium [Moles/Vol] 136 mmol/L Normal 136-145 [facility] Comment on above: Performed By: #### B MP #### [facility] [address] [place], [place] [address] Dr. Deepak Greenfield Urea nitrogen [Mass/Vol] 13.0 mg/dL Normal 7.0-18.0 [facility] Comment on above: Performed By: #### B MP #### [facility] [address] [place], [place] [address] Dr. Deepak Greenfield Urea nitrogen/Creatinine [Mass ratio] 20.0 mg/mg Normal [facility] Comment on above: Performed By: #### B MP #### [facility] [address] [place], [place] [address] Dr. Deepak Greenfield XR CHEST 1 Von 07-26-2022 XR CHEST 1 V EXAM: Chest x-ray HISTORY: . SHORTNESS OF BREATH . COMPARISON: 01/24/2022 TECHNIQUE: Single view of the chest FINDINGS: This is an expiratory chest. Heart and vascularity are unremarkable. Lungs are free of focal infiltrates. There is a generator overlying the left lower chest upper abdomen. Lead extends into the soft tissues of the left neck. IMPRESSION: 1 expiratory chest. 2. No acute heart or lung disease identified. Electronically authenticated by: ANICETO GARCIA Date: 2022-07-26 12:27 Normal [facility] Consent for Treatmenton Consent for Treatment [id number]:127 Normal [facility] Physician Orderon 07-23-2022 Physician Order [id number]# 1.00CD:127 Normal [facility] XR Adult Swallowing Function w/ Videoon 07-23-2022 XR Adult Swallowing Function w/ Video Exam Date/Time: 07/23/2022 10:00 EDT Reason for Exam: R13.10 Report IMPRESSION: Modified barium swallow performed by Speech Pathology. Please refer to the report by the Speech Pathologist in the medical record. XR Adult Swallowing Function w/ Video HISTORY: R13.10 TECHNIQUE: Fluoroscopy was provided for an oropharyngeal phase swallowing examination performed by Speech Pathology with the patient swallowing multiple consistencies. Fluoroscopic dose of 11.70 mGy. DAP: 270.92 uGy*m2 Comparison: 03/31/2016. RESULT: Oral phase: Delayed mastication and bolus formation with delayed transfer to the oropharynx. Early spillage. Pharyngeal phase: Good pharyngeal elevation and epiglottic excursion with laryngeal penetration with honey and nectar consistency, without distinct aspiration. Esophageal phase: No diverticulum, stricture, or fistula in the visualized upper esophagus. Residual: Some vallecular and piriform sinus residue, which adequately cleared with further swallowing. Ordering Provider: FAM VENTURA FINAL REPORT Dictated: 07/23/2022 11:52 am Fam Viramontes MD Signed (Electronic Signature): 07/23/2022 11:52 am Signed by: Fam Viramontes MD Transcribed by: CAMI Technologist: SARAVANAN Technical Comments Radiation Dose: Ka,r in mGy = 11.70 DAP = 270.92 Normal [facility] AMMONIAon 06-03-2022 Ammonia (P) [Moles/Vol] 112 umol/L Critically high 11-32 [facility] Comment on above: Performed By: #### A MM #### [facility] [address] [place] [address] Dr. Deepak Greenfield DEPAKENE/ VALPROIC ACIDon DEPAKENE 94.0 ug/ml Normal 50.0-100.0 [facility] Comment on above: Performed By: #### C BC #### [facility] [address] [place] [address] Dr. Deepak Greenfield LIVER PROFILEon 06-03-2022 Albumin [Mass/Vol] 3.6 g/dL Normal 3.4-5.0 [facility] Comment on above: Performed By: #### C BC #### [facility] [address] [place] [address] Dr. Deepak Greenfield Albumin/Globulin [Mass ratio] 0.9 {ratio} Normal [facility] Comment on above: Performed By: #### C BC #### [facility] [address] [address] [address] Deepak Greenfield ALP [Catalytic activity/Vol] 55 U/L Normal 46-116 [facility] Comment on above: Performed By: #### C BC #### [facility] [address] [place] [address] Dr. Deepak Greenfield ALT [Catalytic activity/Vol] 76 U/L Critically high 16-63 [facility] Comment on above: Performed By: #### C BC #### [facility] [address] [place] [address] Dr. Deepak Greenfield AST [Catalytic activity/Vol] 51 U/L Critically high 15-37 [facility] Comment on above: Performed By: #### C BC #### [facility] [address] [place] [address] Dr. Deepak Greenfield BILI, CONJUGATED 0.1 mg/dL Normal 0.0-0.2 [facility] Comment on above: Performed By: #### C BC #### [facility] [address] [place] [address] Dr. Deepak Greenfield Bilirubin [Mass/Vol] 0.4 mg/dL Normal 0.2-1.0 [facility] Comment on above: Performed By: #### C BC #### [facility] [address] [place] [address] Dr. Deepak Greenfield Globulin (S) [Mass/Vol] 4.1 g/dL Normal [facility] Comment on above: Performed By: #### C BC #### [facility] [address] [place] [address] Dr. Deepak Greenfield Protein [Mass/Vol] 7.7 g/dL Normal 6.4-8.2 [facility] Comment on above: Performed By: #### C BC #### [facility] [address] [place] [address] Dr. Deepak Greenfield AMMONIAon 04-22-2022 Ammonia (P) [Moles/Vol] 108 umol/L Critically high 11-32 [facility] Comment on above: Performed By: #### B MP #### [facility] [address] [place] [address] Dr. Deepak Greenfield CBC AUTO DIFFon 04-22-2022 BASO # 0.0 103/ul Normal 0.0-0.1 [facility] Comment on above: Performed By: #### C BC #### [facility] [address] [place] [address] Dr. Deepak Greenfield Basophils/100 WBC (Bld) 0.5 % Normal 0.2-2.0 [facility] Comment on above: Performed By: #### C BC #### [facility] [address] [place] [address] Dr. Deepak Greenfield EO # 0.1 103/ul Normal 0.0-0.7 [facility] Comment on above: Performed By: #### C BC #### [facility] [address] [place] [address] Dr. Deepak Greenfield Eosinophils/100 WBC (Bld) 1.4 % Normal 0.9-7.0 [facility] Comment on above: Performed By: #### C BC #### [facility] [address] [place] [address] Dr. Deepak Greenfield Erythrocyte distribution width (RBC) [Ratio] 14.2 % Normal 11.0-15.0 [facility] Comment on above: Performed By: #### C BC #### [facility] [address] [place] [address] Dr. Deepak Greenfield Hematocrit (Bld) [Volume fraction] 37.0 % Critically low 42.0-54.0 [facility] Comment on above: Performed By: #### C BC #### [facility] [address] [place] [address] Dr. Deepak Greenfield Hemoglobin (Bld) [Mass/Vol] 12.3 g/dL Critically low 14.0-18.0 [facility] Comment on above: Performed By: #### C BC #### [facility] [address] [address] [address] Deepak Greenfield IG # 0.00 10e3/ul Normal 0.00-0.03 [facility] Comment on above: Performed By: #### C BC #### [facility] [address] [address] [address] Deepak Greenfield IG % 0.0 % Normal 0.0-0.5 [facility] Comment on above: Performed By: #### C BC #### [facility] [address] [place] [address] Dr. Deepak Greenfield LYMPH # 3.3 103/ul Normal 1.2-3.8 [facility] Comment on above: Performed By: #### C BC #### [facility] [address] [place] [address] Dr. Deepak Greenfield Lymphocytes/100 WBC (Bld) 51.5 % Normal 20.5-60.0 [facility] Comment on above: Performed By: #### C BC #### [facility] [address] [place] [address] Dr. Deepak Greenfield MANUAL DIFF REQ NO Normal [facility] Comment on above: Performed By: #### C BC #### [facility] [address] [place] [address] Dr. Deepak Greenfield MCH (RBC) [Entitic mass] 32.2 pg Normal 25.9-34.0 [facility] Comment on above: Performed By: #### C BC #### [facility] [address] [place] [address] Dr. Deepak Greenfield MCHC (RBC) [Mass/Vol] 33.2 g/dL Normal 29.9-35.2 [facility] Comment on above: Performed By: #### C BC #### [facility] [address] [place] [address] Dr. Deepak Greenfield MCV (RBC) [Entitic vol] 96.9 fL Critically high 80.0-94.0 [facility] Comment on above: Performed By: #### C BC #### [facility] [address] [address] [address] Deepak Greenfield MONO # 0.6 103/ul Normal 0.3-0.8 [facility] Comment on above: Performed By: #### C BC #### [facility] [address] [place] [address] Dr. Deepak Greenfield Monocytes/100 WBC (Bld) 9.7 % Normal 1.7-12.0 [facility] Comment on above: Performed By: #### C BC #### [facility] [address] [place] [address] Dr. Deepak Greenfield NEUT # 2.4 103/ul Normal 1.4-6.5 [facility] Comment on above: Performed By: #### C BC #### [facility] [address] [place] [address] Dr. Deepak Greenfield Neutrophils/100 WBC (Bld) 36.9 % Critically low 43.0-75.0 [facility] Comment on above: Performed By: #### C BC #### [facility] [address] [place] [address] Dr. Deepak Greenfield Platelet mean volume (Bld) [Entitic vol] 10.2 fL Normal 9.5-13.5 [facility] Comment on above: Performed By: #### C BC #### [facility] [address] [place] [address] Dr. Deepak Greenfield PLT 248 103/ul Normal 150-450 [facility] Comment on above: Performed By: #### C BC #### [facility] [address] [place] [address] Dr. Deepak Greenfield RBC 3.82 106/ul Critically low 4.70-6.10 [facility] Comment on above: Performed By: #### C BC #### [facility] [address] [place] [address] Dr. Deepak Greenfield WBC 6.5 103/ul Normal 4.0-11.0 [facility] Comment on above: Performed By: #### C BC #### [facility] [address] [place] [address] Dr. Deepak Greenfield FERRITINon 04-22-2022 Ferritin [Mass/Vol] 152.0 ng/mL Normal 26.0-388.0 [facility] Comment on above: Performed By: #### M G, CMP #### [facility] [address] [place] [address] Dr. Deepak Greenfield IRONon 04-22-2022 Iron [Mass/Vol] 136.0 ug/dL Normal 65.0-175.0 [facility] Comment on above: Performed By: #### M G, CMP #### [facility] [address] [place] [address] Dr. Deepak Greenfield MAGNESIUMon 04-22-2022 Magnesium [Mass/Vol] 1.6 mg/dL Critically low 1.8-2.4 [facility] Comment on above: Performed By: #### I NFLUAB #### [facility] [address] [place] [address] Dr. Deepak Greenfield VITAMIN B12on 04-22-2022 Cobalamin (Vitamin B12) [Mass/Vol] 545.0 pg/mL Normal 193.0-986.0 [facility] Comment on above: Performed By: #### M G, CMP #### [facility] [address] [place] [address] Dr. Deepak Greenfield CBC AUTO DIFFon 03-19-2022 BASO # 0.0 103/ul Normal 0.0-0.1 [facility] Comment on above: Performed By: #### Karishma G, CMP #### [facility] [address] [place] [address] Dr. Deepak Greenfield Basophils/100 WBC (Bld) 0.5 % Normal 0.2-2.0 [facility] Comment on above: Performed By: #### M G, CMP #### [facility] [address] [place] [address] Dr. Deepak Greenfield EO # 0.2 103/ul Normal 0.0-0.7 [facility] Comment on above: Performed By: #### M G, CMP #### [facility] [address] [place] [address] Dr. Deepak Greenfield Eosinophils/100 WBC (Bld) 2.0 % Normal 0.9-7.0 [facility] Comment on above: Performed By: #### M G, CMP #### [facility] [address] [place] [address] Dr. Deepak Greenfield Erythrocyte distribution width (RBC) [Ratio] 13.5 % Normal 11.0-15.0 [facility] Comment on above: Performed By: #### M G, CMP #### [facility] [address] [place] [address] Dr. Deepak Greenfield Hematocrit (Bld) [Volume fraction] 38.5 % Critically low 42.0-54.0 [facility] Comment on above: Performed By: #### M G, CMP #### [facility] [address] [place] [address] Dr. Deepak Greenfield Hemoglobin (Bld) [Mass/Vol] 12.6 g/dL Critically low 14.0-18.0 [facility] Comment on above: Performed By: #### M G, CMP #### [facility] [address] [place] [address] Dr. Deepak Greenfield IG # 0.02 10e3/ul Normal 0.00-0.03 [facility] Comment on above: Performed By: #### M G, CMP #### [facility] [address] [place] [address] Dr. Deepak Greenfield IG % 0.2 % Normal 0.0-0.5 [facility] Comment on above: Performed By: #### M G, CMP #### [facility] [address] [place] [address] Dr. Deepak Greenfield LYMPH # 3.1 103/ul Normal 1.2-3.8 [facility] Comment on above: Performed By: #### M G, CMP #### [facility] [address] [place] [address] Dr. Deepak Greenfield Lymphocytes/100 WBC (Bld) 36.2 % Normal 20.5-60.0 [facility] Comment on above: Performed By: #### M G, CMP #### [facility] [address] [place] [address] Dr. Deepak Greenfield MANUAL DIFF REQ NO Normal [facility] Comment on above: Performed By: #### M G, CMP #### [facility] [address] [place] [address] Dr. Deepak Greenfield MCH (RBC) [Entitic mass] 32.1 pg Normal 25.9-34.0 [facility] Comment on above: Performed By: #### M G, CMP #### [facility] [address] [place] [address] Dr. Deepak Greenfield MCHC (RBC) [Mass/Vol] 32.7 g/dL Normal 29.9-35.2 [facility] Comment on above: Performed By: #### M G, CMP #### [facility] [address] [place] [address] Dr. Deepak Greenfield MCV (RBC) [Entitic vol] 98.0 fL Critically high 80.0-94.0 [facility] Comment on above: Performed By: #### M G, CMP #### [facility] [address] [place] [address] Dr. Deepak Greenfield MONO # 0.9 103/ul Critically high 0.3-0.8 [facility] Comment on above: Performed By: #### M G, CMP #### [facility] [address] [place] [address] Dr. Deepak Greenfield Monocytes/100 WBC (Bld) 10.6 % Normal 1.7-12.0 [facility] Comment on above: Performed By: #### M G, CMP #### [facility] [address] [place] [address] Dr. Deepak Greenfield NEUT # 4.3 103/ul Normal 1.4-6.5 [facility] Comment on above: Performed By: #### M G, CMP #### [facility] [address] [place] [address] Dr. Deepak Greenfield Neutrophils/100 WBC (Bld) 50.5 % Normal 43.0-75.0 [facility] Comment on above: Performed By: #### M G, CMP #### [facility] [address] [address] [address] Deepak Greenfield Platelet mean volume (Bld) [Entitic vol] 9.9 fL Normal 9.5-13.5 [facility] Comment on above: Performed By: #### M G, CMP #### [facility] [address] [place] [address] Dr. Deepak Greenfield PLT 263 103/ul Normal 150-450 [facility] Comment on above: Performed By: #### M G, CMP #### [facility] [address] [place] [address] Dr. Deepak Greenfield RBC 3.93 106/ul Critically low 4.70-6.10 [facility] Comment on above: Performed By: #### M G, CMP #### [facility] [address] [place] [address] Dr. Deepak Greenfield WBC 8.6 103/ul Normal 4.0-11.0 [facility] Comment on above: Performed By: #### M G, CMP #### [facility] [address] [place] [address] Dr. Deepak Greenfield MAGNESIUMon 03-19-2022 Magnesium [Mass/Vol] 1.5 mg/dL Critically low 1.8-2.4 [facility] Comment on above: Performed By: #### M G, CMP #### [facility] [address] [place] [address] Dr. Deepak Greenfield PROF 14(COMP METB)on 022 Albumin [Mass/Vol] 3.4 g/dL Normal 3.4-5.0 [facility] Comment on above: Performed By: #### M G, CMP #### [facility] [address] [place] [address] Dr. Deepak Greenfield Albumin/Globulin [Mass ratio] 0.9 {ratio} Normal [facility] Comment on above: Performed By: #### M G, CMP #### [facility] [address] [place] [address] Dr. Deepak Greenfield ALP [Catalytic activity/Vol] 47 U/L Normal 46-116 [facility] Comment on above: Performed By: #### M G, CMP #### [facility] [address] [address] [address] Deepak Greenfield ALT [Catalytic activity/Vol] 48 U/L Normal 16-63 [facility] Comment on above: Performed By: #### M G, CMP #### [facility] [address] [address] [address] Deepak Greenfield Anion gap [Moles/Vol] 9.5 mmol/L Normal [facility] Comment on above: Performed By: #### M G, CMP #### [facility] [address] [address] [address] Deepak Greenfield AST [Catalytic activity/Vol] 30 U/L Normal 15-37 [facility] Comment on above: Performed By: #### M G, CMP #### [facility] [address] [place] [address] Dr. Deepak Greenfield Bilirubin [Mass/Vol] 0.2 mg/dL Normal 0.2-1.0 [facility] Comment on above: Performed By: #### M G, CMP #### [facility] [address] [place] [address] Dr. Deepak Greenfield Calcium [Mass/Vol] 8.7 mg/dL Normal 8.5-10.1 [facility] Comment on above: Performed By: #### M G, CMP #### [facility] [address] [place] [address] Dr. Deepak Greenfield Chloride [Moles/Vol] 105 mmol/L Normal 98-107 [facility] Comment on above: Performed By: #### M G, CMP #### [facility] [address] [address] [address] Deepak Greenfield CO2 [Moles/Vol] 32.6 mmol/L Critically high 21.0-32.0 [facility] Comment on above: Performed By: #### M G, CMP #### [facility] [address] [address] [address] Deepak Greenfield Creatinine [Mass/Vol] 0.70 mg/dL Normal 0.70-1.30 [facility] Comment on above: Performed By: #### M G, CMP #### [facility] [address] [address] [address] Deepak Greenfield EGFR-AF IRANIAN >60 Normal >=60 [facility] Comment on above: Performed By: #### M G, CMP #### [facility] [address] [address] [address] Deepak Greenfield EGFR-NON AF IRANIAN >60 Normal >=60 [facility] Comment on above: Performed By: #### M G, CMP #### [facility] [address] [address] [address] Deepak Greenfield Globulin (S) [Mass/Vol] 3.8 g/dL Normal [facility] Comment on above: Performed By: #### M G, CMP #### [facility] [address] [place] [address] Dr. Deepak Greenfield Glucose [Mass/Vol] 98 mg/dL Normal 74-106 [facility] Comment on above: Performed By: #### M G, CMP #### [facility] [address] [address] [address] Deepak Greenfield Potassium [Moles/Vol] 4.1 mmol/L Normal 3.5-5.1 [facility] Comment on above: Performed By: #### M G, CMP #### [facility] [address] [address] [address] Deepak Greenfield Protein [Mass/Vol] 7.2 g/dL Normal 6.4-8.2 [facility] Comment on above: Performed By: #### M G, CMP #### [facility] [address] [address] [address] Deepak Greenfield Sodium [Moles/Vol] 143 mmol/L Normal 136-145 [facility] Comment on above: Performed By: #### M G, CMP #### [facility] [address] [address] [address] Deepak Greenfield Urea nitrogen [Mass/Vol] 10.0 mg/dL Normal 7.0-18.0 [facility] Comment on above: Performed By: #### M G, CMP #### [facility] [address] [place] [address] Dr. Deepak Greenfield Urea nitrogen/Creatinine [Mass ratio] 14.3 mg/mg Normal [facility] Comment on above: Performed By: #### M G, CMP #### [facility] [address] [place] [address] Dr. Deepak Greenfield VITAMIN D 25 OHon 03-19-2022 VIT D 25-OH 67.5 ng/mL Normal [facility] Comment on above: Performed By: #### M Lacy, CMP #### [facility] [address] [place] [address] Dr. Deepak Greenfield VIT D RANGES SEE BELOW Normal [facility] Comment on above: Result Comment: <20 ng/mL Vit D deficient 20 - <30 ng/mL Vit D insufficient 30 - 100 ng/mL Vit D sufficient >100 ng/mL Potential Toxicity Performed By: #### M Lacy, CMP #### [facility] [address] [place] [address] Dr. Deepak Greenfield AMMONIAon 03-10-2022 Ammonia (P) [Moles/Vol] 36 umol/L Critically high [facility] Comment on above: Performed By: #### C BC #### [facility] [address] [place] [address] Dr. Deepak Greenfield DEPAKENE/ VALPROIC ACIDon DEPAKENE 93.5 ug/ml Normal 50.0-100.0 [facility] Comment on above: Performed By: #### B MP #### [facility] [address] [place] [address] Dr. Deepak Greenfield BNPon 01-24-2022 Natriuretic peptide B (Bld) [Mass/Vol] 183.0 pg/mL Normal <=450.0 [facility] Comment on above: Performed By: #### M Lacy, CMP #### [facility] [address] [place] [address] Dr. Deepak Greenfield CBC AUTO DIFFon 01-24-2022 BASO # 0.0 103/ul Normal 0.0-0.1 [facility] Comment on above: Performed By: #### C VDTBH #### [facility] [address] [place] [address] Dr. Deepak Greenfield Basophils/100 WBC (Bld) 0.3 % Normal 0.2-2.0 [facility] Comment on above: Performed By: #### C VDTBH #### [facility] [address] [place] [address] Dr. Deepak Greenfield EO # 0.1 103/ul Normal 0.0-0.7 [facility] Comment on above: Performed By: #### C VDTBH #### [facility] [address] [place] [address] Dr. Deepak Greenfield Eosinophils/100 WBC (Bld) 0.4 % Critically low 0.9-7.0 [facility] Comment on above: Performed By: #### C VDTBH #### [facility] [address] [place] [address] Dr. Deepak Greenfield Erythrocyte distribution width (RBC) [Ratio] 13.6 % Normal 11.0-15.0 [facility] Comment on above: Performed By: #### C VDTBH #### [facility] [address] [place] [address] Dr. Deepak Greenfield Hematocrit (Bld) [Volume fraction] 39.3 % Critically low 42.0-54.0 [facility] Comment on above: Performed By: #### C VDTBH #### [facility] [address] [place] [address] Dr. Deepak Greenfield Hemoglobin (Bld) [Mass/Vol] 12.6 g/dL Critically low 14.0-18.0 [facility] Comment on above: Performed By: #### C VDTBH #### [facility] [address] [place] [address] Dr. Deepak Greenfield IG # 0.04 10e3/ul Critically high 0.00-0.03 [facility] Comment on above: Performed By: #### C VDTBH #### [facility] [address] [place] [address] Dr. Deepak Greenfield IG % 0.3 % Normal 0.0-0.5 [facility] Comment on above: Performed By: #### C VDTBH #### [facility] [address] [place] [address] Dr. Deepak Greenfield LYMPH # 2.4 103/ul Normal 1.2-3.8 [facility] Comment on above: Performed By: #### C VDTBH #### [facility] [address] [place] [address] Dr. Deepak Greenfield Lymphocytes/100 WBC (Bld) 16.6 % Critically low 20.5-60.0 [facility] Comment on above: Performed By: #### C VDTBH #### [facility] [address] [place] [address] Dr. Deepak Greenfield MANUAL DIFF REQ NO Normal [facility] Comment on above: Performed By: #### C VDTBH #### [facility] [address] [place] [address] Dr. Deepak Greenfield MCH (RBC) [Entitic mass] 32.0 pg Normal 25.9-34.0 [facility] Comment on above: Performed By: #### C VDTBH #### [facility] [address] [place] [address] Dr. Deepak Greenfield MCHC (RBC) [Mass/Vol] 32.1 g/dL Normal 29.9-35.2 [facility] Comment on above: Performed By: #### C VDTBH #### [facility] [address] [place] [address] Dr. Deepak Greenfield MCV (RBC) [Entitic vol] 99.7 fL Critically high 80.0-94.0 [facility] Comment on above: Performed By: #### C VDTBH #### [facility] [address] [place] [address] Dr. Deepak Greenfield MONO # 1.4 103/ul Critically high 0.3-0.8 [facility] Comment on above: Performed By: #### C VDTBH #### [facility] [address] [place] [address] Dr. Deepak Greenfield Monocytes/100 WBC (Bld) 9.8 % Normal 1.7-12.0 [facility] Comment on above: Performed By: #### C VDTBH #### [facility] [address] [place] [address] Dr. Deepak Greenfield NEUT # 10.7 103/ul Critically high 1.4-6.5 [facility] Comment on above: Performed By: #### C VDTBH #### [facility] [address] [place] [address] Dr. Deepak Greenfield Neutrophils/100 WBC (Bld) 72.6 % Normal 43.0-75.0 [facility] Comment on above: Performed By: #### C VDTBH #### [facility] [address] [place] [address] Dr. Deepak Greenfield Platelet mean volume (Bld) [Entitic vol] 10.4 fL Normal 9.5-13.5 [facility] Comment on above: Performed By: #### C VDTBH #### [facility] [address] [place] [address] Dr. Deepak Greenfield PLT 280 103/ul Normal 150-450 [facility] Comment on above: Performed By: #### C VDTBH #### [facility] [address] [place] [address] Dr. Deepak Greenfield RBC 3.94 106/ul Critically low 4.70-6.10 [facility] Comment on above: Performed By: #### C VDTBH #### [facility] [address] [place] [address] Dr. Deepak Greenfield WBC 14.7 103/ul Critically high 4.0-11.0 [facility] Comment on above: Performed By: #### C VDTBH #### [facility] [address] [place] [address] Dr. Deepak Greenfield CULTURE BLOODon 01-24-2022 Microscopic examination of blood, culture Culture Observations: No growth at 5 days. Normal [facility] Comment on above: Performed By: #### C BC #### [facility] [address] [place] [address] Dr. Deepak Greenfield Microscopic examination of blood, culture Culture Observations: No growth at 5 days. Normal [facility] Comment on above: Performed By: #### C BC #### [facility] [address] [place] [address] Dr. Deepak Greenfield Covid-19 PCR ([facility])on SARS-CoV-2 (COVID-19) RNA CINDY+probe Ql (Unsp spec) Not detected Normal NOT DETECTED [facility] Comment on above: Result Comment: When diagnostic testing is negative, the possibility of a false negative should be considered in the context of a patient's recent exposures and the presence of clinical signs and symptoms consistent with SARS-CoV-2. This test is not yet approved or cleared by the [place] FDA. When there are no FDA-approved or cleared tests available, and other criteria are met, FDA can make tests available under an emergency access mechanism called an Emergency Use Authorization (EUA). The EUA for this test is supported by the Senior Clinical Sas Programmer of Health and Human Service's declaration that circumstances exist to justify the emergency use of in vitro diagnostics for the detection and/or diagnosis of the virus that causes COVID-19. This EUA will remain in effect for the duration of the COVID-19 declaration justifying emergency of IVDs, unless it is terminated or revoked by the FDA (after which the test may no longer be used). Performed By: #### I NFLUAB #### [facility] [address] [place] [address] Dr. Deepak Greenfield LACTATE/LACTIC ACIDon 2021 Lactate [Moles/Vol] 1.7 mmol/L Normal 0.4-1.9 [facility] Comment on above: Performed By: #### M G, CMP #### [facility] [address] [place] [address] Dr. Deepak Greenfield PROF 14(COMP METB)on 022 Albumin [Mass/Vol] 3.2 g/dL Critically low 3.4-5.0 [facility] Comment on above: Performed By: #### M G, CMP #### [facility] [address] [place] [address] Dr. Deepak Greenfield Albumin/Globulin [Mass ratio] 0.7 {ratio} Normal [facility] Comment on above: Performed By: #### M G, CMP #### [facility] [address] [place] [address] Dr. Deepak Greenfield ALP [Catalytic activity/Vol] 49 U/L Normal 46-116 [facility] Comment on above: Performed By: #### M G, CMP #### [facility] [address] [place] [address] Dr. Deepak Greenfield ALT [Catalytic activity/Vol] 41 U/L Normal 16-63 [facility] Comment on above: Performed By: #### M G, CMP #### [facility] [address] [place] [address] Dr. Deepak Greenfield Anion gap [Moles/Vol] 11.1 mmol/L Normal [facility] Comment on above: Performed By: #### M G, CMP #### [facility] [address] [place] [address] Dr. Deepak Greenfield AST [Catalytic activity/Vol] 29 U/L Normal 15-37 [facility] Comment on above: Performed By: #### Karishma G, CMP #### [facility] [address] [place] [address] Dr. Deepak Greenfield Bilirubin [Mass/Vol] 0.5 mg/dL Normal 0.2-1.0 [facility] Comment on above: Performed By: #### Karishma G, CMP #### [facility] [address] [place] [address] Dr. Deepak Greenfield Calcium [Mass/Vol] 9.1 mg/dL Normal 8.5-10.1 [facility] Comment on above: Performed By: #### M G, CMP #### [facility] [address] [place] [address] Dr. Deepak Greenfield Chloride [Moles/Vol] 108 mmol/L Critically high 98-107 [facility] Comment on above: Performed By: #### M G, CMP #### [facility] [address] [place] [address] Dr. Deepak Greenfield CO2 [Moles/Vol] 25.7 mmol/L Normal 21.0-32.0 [facility] Comment on above: Performed By: #### M G, CMP #### [facility] [address] [place] [address] Dr. Deepak Greenfield Creatinine [Mass/Vol] 0.89 mg/dL Normal 0.70-1.30 [facility] Comment on above: Performed By: #### M G, CMP #### [facility] [address] [address] [address] Deepak Greenfield EGFR-AF IRANIAN >60 Normal >=60 [facility] Comment on above: Performed By: #### M G, CMP #### [facility] [address] [place] [address] Dr. Deepak Greenfield EGFR-NON AF IRANIAN >60 Normal >=60 [facility] Comment on above: Performed By: #### M G, CMP #### [facility] [address] [place] [address] Dr. Deepak Greenfield Globulin (S) [Mass/Vol] 4.5 g/dL Normal [facility] Comment on above: Performed By: #### M G, CMP #### [facility] [address] [place] [address] Dr. Deepak Greenfield Glucose [Mass/Vol] 178 mg/dL Critically high 74-106 [facility] Comment on above: Performed By: #### M G, CMP #### [facility] [address] [place] [address] Dr. Deepak Greenfield Potassium [Moles/Vol] 3.8 mmol/L Normal 3.5-5.1 [facility] Comment on above: Performed By: #### M G, CMP #### [facility] [address] [place] [address] Dr. Deepak Greenfield Protein [Mass/Vol] 7.7 g/dL Normal 6.4-8.2 [facility] Comment on above: Performed By: #### M G, CMP #### [facility] [address] [place] [address] Dr. Deepak Greenfield Sodium [Moles/Vol] 141 mmol/L Normal 136-145 [facility] Comment on above: Performed By: #### M G, CMP #### [facility] [address] [address] [address] Deepak Greenfield Urea nitrogen [Mass/Vol] 16.0 mg/dL Normal 7.0-18.0 [facility] Comment on above: Performed By: #### M G, CMP #### [facility] [address] [address] [address] Deepak Greenfield Urea nitrogen/Creatinine [Mass ratio] 18.0 mg/mg Normal [facility] Comment on above: Performed By: #### M G, CMP #### [facility] [address] [place] [address] Dr. Deepak Greenfield TROPONIN, HIGH SENSITIVITYon 01-24-2022 HSTROP 6.4 pg/mL Normal 4.0-76.1 [facility] Comment on above: Result Comment: CUT- OFF POINTS HAVE BEEN ESTABLISHED BASED ON THE FOURTH UNIVERSAL DEFINITIONS OF MYOCARDIAL INFARCTION. THE UPPER REFERENCE LIMIT (URL) OF TROPONIN, DEFINED THE 99TH PERCENTILE OF cTnI DISTRIBUTION IN A REFERENCE POPULATION, HAS BEEN CONFIRMED THE DECISION THRESHOLD FOR PR DIAGNOSIS. Performed By: #### Karishma House, CMP #### [facility] [address] [place] [address] Dr. eDepak Greenfield XR CHEST 1 Von 01-24-2022 XR CHEST 1 V EXAM: XR CHEST 1 V HISTORY: SHORTNESS OF BREATH COMPARISON: Chest x-ray 01/06/2022. TECHNIQUE: Portable chest FINDINGS: Poor inspiratory effort. No pneumothorax or pleural effusion. The heart is not enlarged. No consolidation or infiltrate. Stimulator overlies the left upper abdomen. IMPRESSION: No acute abnormality Electronically authenticated by: ANICETO CROCKER Date: 2022-01-24 15:28 Normal [facility] UA RANDOM W/MICROSCOPICon BACTERIA NONE SEEN Normal NONE SEEN [facility] Comment on above: Performed By: #### C VDTBH #### [facility] [address] [place] [address] Dr. Deepak Greenfield Bilirubin Ql (U) Negative Normal NEGATIVE [facility] Comment on above: Performed By: #### C VDTBH #### [facility] [address] [place] [address] Dr. Deepak Greenfield CAST NONE SEEN Normal NONE SEEN [facility] Comment on above: Performed By: #### C VDTBH #### [facility] [address] [place] [address] Dr. Deepak Greenfield Clarity (U) CLEAR Normal CLEAR [facility] Comment on above: Performed By: #### C VDTBH #### [facility] [address] [place] [address] Dr. Deepak Greenfield Color (U) YELLOW Normal YELLOW [facility] Comment on above: Performed By: #### C VDTBH #### [facility] [address] [place] [address] Dr. Deepak Greenfield Crystals LM Nom (Urine sed) NONE SEEN Normal NONE SEEN [facility] Comment on above: Performed By: #### C VDTBH #### [facility] [address] [place] [address] Dr. Deepak Greenfield Epithelial cells LM Ql (Urine sed) RARE Normal NONE SEEN /RARE [facility] Comment on above: Performed By: #### C VDTBH #### [facility] [address] [place] [address] Dr. Deepak Greenfield Glucose Ql (U) Negative Normal NEGATIVE [facility] Comment on above: Performed By: #### C VDTBH #### [facility] [address] [place] [address] Dr. Deepak Greenfield Hemoglobin Ql (U) Negative Normal NEGATIVE [facility] Comment on above: Performed By: #### C VDTBH #### [facility] [address] [place] [address] Dr. Deepak Greenfield Ketones Ql (U) 15 mg/dl Abnormal NEGATIVE [facility] Comment on above: Performed By: #### C VDTBH #### [facility] [address] [place] [address] Dr. Deepak Greenfield LEUKOCYTES Negative Normal NEGATIVE [facility] Comment on above: Performed By: #### C VDTBH #### [facility] [address] [place] [address] Dr. Deepak Greenfield MUCOUS NONE SEEN Normal NONE SEEN [facility] Comment on above: Performed By: #### C VDTBH #### [facility] [address] [place] [address] Dr. Deepak Greenfield Nitrite Ql (U) Negative Normal NEGATIVE [facility] Comment on above: Performed By: #### C VDTBH #### [facility] [address] [place] [address] Dr. Deepak Greenfield pH (U) 6.0 [pH] Normal 5-9 [facility] Comment on above: Performed By: #### C VDTBH #### [facility] [address] [place] [address] Dr. Deepak Greenfield RBC 0-2 Normal 0-2 [facility] Comment on above: Performed By: #### C VDTBH #### [facility] [address] [place] [address] Dr. Deepak Greenfield SPEC GRAVITY 1.020 Normal 1.005-<=1.025 [facility] Comment on above: Performed By: #### C VDTBH #### [facility] [address] [place] [address] Dr. Deepak Greenfield UA PROTEIN Negative Normal NEGATIVE/ TRACE [facility] Comment on above: Performed By: #### C VDTBH #### [facility] [address] [place] [address] Dr. Deepak Greenfield Urobilinogen Qn (U) 0.2 {Ottoneil'U}/dL Normal 0.2 - 1. 0 [facility] Comment on above: Performed By: #### C VDTBH #### [facility] [address] [place] [address] Dr. Deepak Greenfield WBC NONE SEEN Normal NONE SEEN [facility] Comment on above: Performed By: #### C VDTBH #### [facility] [address] [place] [address] Dr. Deepak Greenfield ALBUMINon 01-12-2022 Albumin [Mass/Vol] 3.4 g/dL Normal 3.4-5.0 [facility] Comment on above: Performed By: #### C VDTBH #### [facility] [address] [place] [address] Dr. Deepak Greenfield ALKALINE PHOSPHAon ALP [Catalytic activity/Vol] 46 U/L Normal 46-116 [facility] Comment on above: Performed By: #### C VDTBH #### [facility] [address] [place] [address] Dr. Deepak Greenfield AMMONIAon 01-12-2022 Ammonia (P) [Moles/Vol] 93 umol/L Critically high [facility] Comment on above: Performed By: #### I NFLUAB #### [facility] [address] [place] [address] Dr. Deepak Greenfield BILIRUBIN CONJUGATED (DIRECT )on 01-12-2022 BILI, CONJUGATED 0.1 mg/dL Normal 0.0-0.2 [facility] Comment on above: Performed By: #### C VDTBH #### [facility] [address] [place] [address] Dr. Deepak Greenfield BILIRUBIN TOTALon 01-12-2022 Bilirubin [Mass/Vol] 0.4 mg/dL Normal 0.2-1.0 [facility] Comment on above: Performed By: #### C VDTBH #### [facility] [address] [place] [address] Dr. Deepak Greenfield CBC AUTO DIFFon 01-12-2022 BASO # 0.0 103/ul Normal 0.0-0.1 [facility] Comment on above: Performed By: #### M G, CMP #### [facility] [address] [place] [address] Dr. Deepak Greenfield Basophils/100 WBC (Bld) 0.3 % Normal 0.2-2.0 [facility] Comment on above: Performed By: #### M G, CMP #### [facility] [address] [place] [address] Dr. Deepak Greenfield EO # 0.1 103/ul Normal 0.0-0.7 [facility] Comment on above: Performed By: #### M G, CMP #### [facility] [address] [place] [address] Dr. Deepak Greenfield Eosinophils/100 WBC (Bld) 1.3 % Normal 0.9-7.0 [facility] Comment on above: Performed By: #### M G, CMP #### [facility] [address] [place] [address] Dr. Deepak Greenfield Erythrocyte distribution width (RBC) [Ratio] 14.2 % Normal 11.0-15.0 [facility] Comment on above: Performed By: #### M G, CMP #### [facility] [address] [place] [address] Dr. Deepak Greenfield Hematocrit (Bld) [Volume fraction] 40.4 % Critically low 42.0-54.0 [facility] Comment on above: Performed By: #### M G, CMP #### [facility] [address] [place] [address] Dr. Deepak Greenfield Hemoglobin (Bld) [Mass/Vol] 13.1 g/dL Critically low 14.0-18.0 [facility] Comment on above: Performed By: #### M G, CMP #### [facility] [address] [place] [address] Dr. Deepak Greenfield IG # 0.01 10e3/ul Normal 0.00-0.03 [facility] Comment on above: Performed By: #### M G, CMP #### [facility] [address] [place] [address] Dr. Deepak Greenfield IG % 0.1 % Normal 0.0-0.5 [facility] Comment on above: Performed By: #### M G, CMP #### [facility] [address] [place] [address] Dr. Deepak Greenfield LYMPH # 3.3 103/ul Normal 1.2-3.8 [facility] Comment on above: Performed By: #### M G, CMP #### [facility] [address] [place] [address] Dr. Deepak Greenfield Lymphocytes/100 WBC (Bld) 42.3 % Normal 20.5-60.0 [facility] Comment on above: Performed By: #### M G, CMP #### [facility] [address] [place] [address] Dr. Deepak Greenfield MANUAL DIFF REQ NO Normal [facility] Comment on above: Performed By: #### M G, CMP #### [facility] [address] [place] [address] Dr. Deepak Greenfield MCH (RBC) [Entitic mass] 32.4 pg Normal 25.9-34.0 [facility] Comment on above: Performed By: #### M G, CMP #### [facility] [address] [place] [address] Dr. Deepak Greenfield MCHC (RBC) [Mass/Vol] 32.4 g/dL Normal 29.9-35.2 [facility] Comment on above: Performed By: #### M G, CMP #### [facility] [address] [place] [address] Dr. Deepak Greenfield MCV (RBC) [Entitic vol] 100.0 fL Critically high 80.0-94.0 [facility] Comment on above: Performed By: #### M G, CMP #### [facility] [address] [place] [address] Dr. Deepak Greenfield MONO # 0.6 103/ul Normal 0.3-0.8 [facility] Comment on above: Performed By: #### M G, CMP #### [facility] [address] [place] [address] Dr. Deepak Greenfield Monocytes/100 WBC (Bld) 7.6 % Normal 1.7-12.0 [facility] Comment on above: Performed By: #### M G, CMP #### [facility] [address] [place] [address] Dr. Deepak Greenfield NEUT # 3.8 103/ul Normal 1.4-6.5 [facility] Comment on above: Performed By: #### M G, CMP #### [facility] [address] [place] [address] Dr. Deepak Greenfield Neutrophils/100 WBC (Bld) 48.4 % Normal 43.0-75.0 [facility] Comment on above: Performed By: #### M G, CMP #### [facility] [address] [place] [address] Dr. Deepak Greenfield Platelet mean volume (Bld) [Entitic vol] 9.6 fL Normal 9.5-13.5 [facility] Comment on above: Performed By: #### M G, CMP #### [facility] [address] [place] [address] Dr. Deepak Greenfield PLT 315 103/ul Normal 150-450 [facility] Comment on above: Performed By: #### M G, CMP #### [facility] [address] [place] [address] Dr. Deepak Greenfield RBC 4.04 106/ul Critically low 4.70-6.10 [facility] Comment on above: Performed By: #### M G, CMP #### [facility] [address] [place] [address] Dr. Deepak Greenfield WBC 7.9 103/ul Normal 4.0-11.0 [facility] Comment on above: Performed By: #### M G, CMP #### [facility] [address] [place] [address] Dr. Deepak Greenfield DEPAKENE/VALPROICon 01-13-20 22 DEPAKENE 89.7 ug/ml Normal 50.0-100.0 [facility] Comment on above: Performed By: #### I NFLUAB #### [facility] [address] [place] [address] Dr. Deepak Greenfield PROF CHEM 8 (BAS METB)on Anion gap [Moles/Vol] 12.9 mmol/L Normal [facility] Comment on above: Performed By: #### I NFLUAB #### [facility] [address] [place] [address] Dr. Deepak Greenfield Calcium [Mass/Vol] 8.8 mg/dL Normal 8.5-10.1 [facility] Comment on above: Performed By: #### I NFLUAB #### [facility] [address] [address] [address] Deepak Greenfield Chloride [Moles/Vol] 103 mmol/L Normal 98-107 [facility] Comment on above: Performed By: #### I NFLUAB #### [facility] [address] [address] [address] Deepak Greenfield CO2 [Moles/Vol] 28.1 mmol/L Normal 21.0-32.0 [facility] Comment on above: Performed By: #### I NFLUAB #### [facility] [address] [place] [address] Dr. Deepak Greenfeild Creatinine [Mass/Vol] 0.58 mg/dL Critically low 0.70-1.30 [facility] Comment on above: Performed By: #### I NFLUAB #### [facility] [address] [place] [address] Dr. Deepak Greenfield EGFR-AF IRANIAN >60 Normal >=60 [facility] Comment on above: Performed By: #### I NFLUAB #### [facility] [address] [place] [address] Dr. Deepak Greenfield EGFR-NON AF IRANIAN >60 Normal >=60 [facility] Comment on above: Performed By: #### I NFLUAB #### [facility] [address] [address] [address] Deepak Greenfield Glucose [Mass/Vol] 117 mg/dL Critically high 74-106 [facility] Comment on above: Performed By: #### I NFLUAB #### [facility] [address] [address] [address] Deepak Greenfield Potassium [Moles/Vol] 4.0 mmol/L Normal 3.5-5.1 [facility] Comment on above: Performed By: #### I NFLUAB #### [facility] [address] [address] [address] Deepak Greenfield Sodium [Moles/Vol] 140 mmol/L Normal 136-145 [facility] Comment on above: Performed By: #### I NFLUAB #### [facility] [address] [address] [address] Deepak Greenfield Urea nitrogen [Mass/Vol] 7.0 mg/dL Normal 7.0-18.0 [facility] Comment on above: Performed By: #### I NFLUAB #### [facility] [address] [place] [address] Dr. Deepak Greenfield Urea nitrogen/Creatinine [Mass ratio] 12.1 mg/mg Normal [facility] Comment on above: Performed By: #### I NFLUAB #### [facility] [address] [place] [address] Dr. Deepak Greenfield SGOTon 01-12-2022 AST [Catalytic activity/Vol] 31 U/L Normal 15-37 [facility] Comment on above: Performed By: #### C VDTBH #### [facility] [address] [place] [address] Dr. Deepak Greenfield SGPTon 01-12-2022 ALT [Catalytic activity/Vol] 48 U/L Normal 16-63 [facility] Comment on above: Performed By: #### C VDTBH #### [facility] [address] [place] [address] Dr. Deepak Greenfield T PROTEIN SERUMon 01-12-2022 Protein [Mass/Vol] 7.3 g/dL Normal 6.4-8.2 [facility] Comment on above: Performed By: #### B MP #### [facility] [address] [place] [address] Dr. Deepak Greenfield XR CHEST 2 Von 01-06-2022 XR CHEST 2 V EXAM: XR CHEST 2 V HISTORY: Congestion COMPARISON: Portable chest 05/28/2021 TECHNIQUE: 2 views FINDINGS: 2 extremely limited relatively nondiagnostic chest x-rays are presented for interpretation. Distended air-filled loops of bowel and findings raising the suspicion of an early bowel obstruction. No gross pneumothorax or pleural effusion IMPRESSION: Limited study Questionable bowel obstruction Electronically authenticated by: ANICETO CROCKER Date: 2022-01-06 16:15 Normal [facility] Progress Noteson 12-16-2021 [employer] Authentication Interface Message Text ----- Thursday, December 16, 2021 at 12:03:50 PM ----- ----- Provider: [id number] Heriberto Powell Hygienist -- Clinic: [facility] ----- COUNT INCLUDES THE [facility], Pt is ready for tx. Pt presented for dental evaluation for future OR. Caregiver in the room. Patient is non-verbal. Severe intellectual disability, seizure disorder Caregiver stated patient is not pain and no complaining. Radiograph taken today: no possible due to patient behavior Case requested for OR. Guardian mother Katia Lopez. [phone]. [facility] [phone] EXT [id number] ( [facility]) AVS printed and handed flyer for step by step instruction of OR process to Caregiver exam By: Elliott Ham [facility]. OR ----- Signed on Thursday, December 16, 2021 at 12:18:18 PM ----- ----- Provider: [id number] Heriberto Adams DDS -- Clinic: [place] ----- Normal [facility] [employer] [facility] XR DEXA BONE DENSITYon 11-20 XR DEXA BONE DENSITY DEXA bone density study CLINICAL: 41-year-old male. Evaluate bone mineral density. The bone density study was assessed by dual-energy x-ray absorptiometry. The lumbar spine was examined in AP projection and the hip(s) were examined in AP projection. The test results are expressed in Z-Score, as the patient is under 50 years old. Additional information regarding the Z-Score reflects the standard deviations from the mean peak bone mineral density for age- and gender-matched subjects. Lumbar Spine (L1-L4): BMD (gm/cm2): 1.404 Z-Score: 2.0 Left Hip (total): BMD (gm/cm2): 0.828 Z-Score: -1.4 Left Hip (Neck): BMD (gm/cm2): 0.760 Z-Score: -1.7 Right Hip (total): BMD (gm/cm2): 0.902 Z-Score: -0.9 Right Hip (Neck): BMD (gm/cm2): 0.777 Z-Score: -1.6 IMPRESSION: 1. Bone mineral density by WHO criteria: Within the expected range for age based on the Z score values in a patient under 50 years old. REFERENCE: In children, women and males under age 50 not at increased risk for fractures, only Z-Scores, not T-Scores, are used to indicate fracture risk. A Z-Score above -2.0 is defined as within the expected range for age and Z-Score at or less than -2.0 is below the expected range for age or bone mineral density less than normal for age. A Z-Score below the expected range for age in a patient with recent fractures and/or chronic corticosteroid treatment is consistent with a diagnosis of osteoporosis. In postmenopausal women and males 50 or over, comparison of the measured bone mineral density with the average value in young normal subjects (the T-Score) has been found to be useful in assessing fracture risk. Fracture risk approximately doubles for each 1.0 standard deviation (SD) that the individuals hip or spine bone mineral density is below the average value of young normal subjects. The World Health Organization (WHO) has provided the following definitions: 1. Normal: T-Score within one standard deviation of young adult mean value (T-Score at or above -1.0). 2. Osteopenia (low bone mass): T-Score more than one standard deviation below the young adult mean but less than 2.5 standard deviations below the young adult mean (T-Score between -1.0 and -2.5). 3. Osteoporosis: T-Score at or more than 2.5 standard deviations below the young adult mean (T-Score at or less than -2.5). 4. Severe Osteoporosis (established osteoporosis): T-Score more than 2.5 standard deviations below young adult and one or more fragility fracture (T-Score less than -2.5 plus fragility fractures). WHO Fracture risk assessment tool (FRAX) is typically not reported in patients already receiving therapy for osteoporosis, in patients with known vertebral or hip fractures, or in patients younger than 50. Electronically authenticated by: MARGARITO DAVIES Date: 2021-11-20 11:42 Normal [facility] US SCROTUMon 11-14-2021 US SCROTUM EXAMINATION: US SCROTUM HISTORY: Imaging of genitourinary system abnormal , retracted right testicle COMPARISON: Ultrasound scrotum 07/04/2020, CT abdomen pelvis 09/22/2021 TECHNIQUE: High-resolution sonographic imaging of the scrotum and contents was performed. FINDINGS: RIGHT TESTICLE: Located within the right hemiscrotum. Homogeneous echotexture. No visible mass. Color Doppler flow is present. Spectral Doppler demonstrates normal arterial waveform and flow, 3/2 cm/s (PSV/EDV), and normal venous wave flow averaging 2 cm/s. LEFT TESTICLE: Pulled slightly into the inguinal canal. Homogeneous echotexture. No visible mass. Color Doppler flow is present. Spectral Doppler demonstrates arterial waveform and flow, 4/1 cm/s (PSV/EDV), and normal venous flow averaging 1 cm/s. RIGHT EPIDIDYMIS: Normal size and echogenicity. LEFT EPIDIDYMIS: Normal size and echogenicity. OTHER: Small hydrocele on right. IMPRESSION: 1. Normal-appearing right testicle within right hemiscrotum. Small hydrocele. 2. Normal-appearing left testicle pulled slightly into inguinal canal. 3. Since this appearance has changed compared to the recent CT study, both testicles are likely intermittently retracted into the inguinal canal. Electronically authenticated by: KRISTIAN BILLINGS Date: 2021-11-14 07:10 Normal [facility] AMMONIAon 10-31-2021 Ammonia (P) [Moles/Vol] 88 umol/L Critically high 11-32 [facility] Comment on above: Performed By: #### M G, CMP #### [facility] [address] [address] [address] Deepak Greenfield AMMONIAon 10-30-2021 Ammonia (P) [Moles/Vol] 103 umol/L Critically high 11-32 [facility] Comment on above: Result Comment: SPEC IMEN SLIGHTLY HEMOLYZED MAY AFFECT AMM RESULT Performed By: #### I NFLUAB #### [facility] [address] [address] [address] Deepak Greenfield WOUND CULTUREon 10-23-2021 Bacteria identified Aer cx Nom (Unsp spec) Final report Normal [facility] Comment on above: Performed By: #### C XWND #### [facility] [address] [place] [address] Dr. Deepak Greenfield Result 1 Comment Normal [facility] Comment on above: Result Comment: No g rowth in 36 - 48 hours. Performed By: #### C XWND #### [facility] [address] [place] [address] Dr. Deepak Greenfield WOUND CULTUREon 10-02-2021 Bacteria identified Aer cx Nom (Unsp spec) Final report Normal [facility] Comment on above: Performed By: #### A MM #### [facility] [address] [place] [address] Dr. Deepak Greenfield Result 1 Mixed skin omid Normal [facility] Comment on above: Performed By: #### A MM #### [facility] [address] [place] [address] Dr. Deepak Greenfield AMYLASEon 09-22-2021 Amylase [Catalytic activity/Vol] 24 U/L Critically low 25-115 [facility] Comment on above: Performed By: #### C BC #### [facility] [address] [place] [address] Dr. Deeapk Greenfield CBC AUTO DIFFon 09-22-2021 BASO # 0.0 103/ul Normal 0.0-0.1 [facility] Comment on above: Performed By: #### C VDTBH #### [facility] [address] [place] [address] Dr. Deepak Greenfield Basophils/100 WBC (Bld) 0.5 % Normal 0.2-2.0 [facility] Comment on above: Performed By: #### C VDTBH #### [facility] [address] [place] [address] Dr. Deepak Greenfield EO # 0.1 103/ul Normal 0.0-0.7 [facility] Comment on above: Performed By: #### C VDTBH #### [facility] [address] [place] [address] Dr. Deepak Greenfield Eosinophils/100 WBC (Bld) 1.3 % Normal 0.9-7.0 [facility] Comment on above: Performed By: #### C VDTBH #### [facility] [address] [place] [address] Dr. Deepak Greenfield Erythrocyte distribution width (RBC) [Ratio] 13.9 % Normal 11.0-15.0 [facility] Comment on above: Performed By: #### C VDTBH #### [facility] [address] [place] [address] Dr. Deepak Greenfield Hematocrit (Bld) [Volume fraction] 40.0 % Critically low 42.0-54.0 [facility] Comment on above: Performed By: #### C VDTBH #### [facility] [address] [place] [address] Dr. Deepak Greenfield Hemoglobin (Bld) [Mass/Vol] 13.0 g/dL Critically low 14.0-18.0 [facility] Comment on above: Performed By: #### C VDTBH #### [facility] [address] [place] [address] Dr. Deepak Greenfield IG # 0.01 10e3/ul Normal 0.00-0.03 [facility] Comment on above: Performed By: #### C VDTBH #### [facility] [address] [place] [address] Dr. Deepak Greenfield IG % 0.2 % Normal 0.0-0.5 [facility] Comment on above: Performed By: #### C VDTBH #### [facility] [address] [place] [address] Dr. Deepak Greenfield LYMPH # 3.0 103/ul Normal 1.2-3.8 [facility] Comment on above: Performed By: #### C VDTBH #### [facility] [address] [place] [address] Dr. Deepak Greenfield Lymphocytes/100 WBC (Bld) 47.9 % Normal 20.5-60.0 [facility] Comment on above: Performed By: #### C VDTBH #### [facility] [address] [place] [address] Dr. Deepak Greenfield MANUAL DIFF REQ NO Normal [facility] Comment on above: Performed By: #### C VDTBH #### [facility] [address] [place] [address] Dr. Deepak Greenfield MCH (RBC) [Entitic mass] 32.9 pg Normal 25.9-34.0 [facility] Comment on above: Performed By: #### C VDTBH #### [facility] [address] [place] [address] Dr. Deepak Greenfield MCHC (RBC) [Mass/Vol] 32.5 g/dL Normal 29.9-35.2 [facility] Comment on above: Performed By: #### C VDTBH #### [facility] [address] [place] [address] Dr. Deepak Greenfield MCV (RBC) [Entitic vol] 101.3 fL Critically high 80.0-94.0 [facility] Comment on above: Performed By: #### C VDTBH #### [facility] [address] [place] [address] Dr. Deepak Greenfield MONO # 0.7 103/ul Normal 0.3-0.8 [facility] Comment on above: Performed By: #### C VDTBH #### [facility] [address] [place] [address] Dr. Deepak Greenfield Monocytes/100 WBC (Bld) 10.3 % Normal 1.7-12.0 [facility] Comment on above: Performed By: #### C VDTBH #### [facility] [address] [place] [address] Dr. Deepak Greenfield NEUT # 2.5 103/ul Normal 1.4-6.5 [facility] Comment on above: Performed By: #### C VDTBH #### [facility] [address] [place] [address] Dr. Deepak Greenfield Neutrophils/100 WBC (Bld) 39.8 % Critically low 43.0-75.0 [facility] Comment on above: Performed By: #### C VDTBH #### [facility] [address] [place] [address] Dr. Deepak Greenfield Platelet mean volume (Bld) [Entitic vol] 10.1 fL Normal 9.5-13.5 [facility] Comment on above: Performed By: #### C VDTBH #### [facility] [address] [place] [address] Dr. Deepak Greenfield PLT 311 103/ul Normal 150-450 [facility] Comment on above: Performed By: #### C VDTBH #### [facility] [address] [place], [place] [address] Dr. Deepak Greenfield RBC 3.95 106/ul Critically low 4.70-6.10 [facility] Comment on above: Performed By: #### C VDTBH #### [facility] [address] [place], [place] [address] Dr. Deepak Greenfield WBC 6.3 103/ul Normal 4.0-11.0 [facility] Comment on above: Performed By: #### C VDTBH #### [facility] [address] [place], [place] [address] ABD/PELV W CONon 09-23-19 CT ABD/PELV W CON CT ABD/PELV W CON: 09/21/2021 11:32 PM EDT CLINICAL HISTORY: 41 years old Male with GENERALIZED ABDOMINAL PAIN. Vomiting, abdominal pain. TECHNIQUE: Axial CT images through the abdomen and pelvis are obtained after the intravenous administration of contrast. Coronal and sagittal reformations are also obtained. Dose reduction techniques were achieved by using automated exposure control and/or adjustment of mA and/or kV according to patient size and/or use of iterative reconstruction technique. COMPARISON: CT abdomen pelvis performed 07/04/2020. FINDINGS: The superior most aspect of the upper abdomen and liver are incompletely included on the right side. The lung bases are clear with no dependent infiltrate or effusion. The liver, gallbladder, spleen, pancreas and bilateral adrenal glands are unremarkable. The bilateral kidneys demonstrate normal enhancement without hydronephrosis. 1.2 cm cyst at the upper pole of the left kidney is present. The bilateral ureters demonstrate no gross abnormality or obstruction. The stomach and small bowel are unremarkable. The appendix is visualized without inflammatory change. Fluid density within the ascending colon with mild air-fluid leveling is present with otherwise fecal stasis throughout the remainder of the colon. The bladder appears unremarkable. There is no evidence of aortic aneurysm present. No enlarged lymph nodes are seen. No free air or free fluid is seen. The prostate gland is within normal limits. The right testes now appears to be present within the inguinal canal previously in the scrotal sac. The osseous structures appear unremarkable. IMPRESSION: 1. Interval migration of the right testes into the inguinal canal suggesting retractile testicle. 2. No acute intra-abdominal inflammatory process identified. Fecal stasis. Electronically authenticated by: JAMIE ALICIA Date: 2021-09-22 02:34 Normal [facility] CT HEAD WO CONon 09-22-2021 CT HEAD WO CON EXAM: CT HEAD WO CON CLINICAL INDICATION: DISORIENTATION, UNSPECIFIED COMPARISON: 07/06/2020 TECHNIQUE: Axial CT images of the brain were obtained without contrast. Dose reduction techniques were achieved by using automated exposure control and/or adjustment of mA and/or kV according to patient size and/or use of iterative reconstruction technique. FINDINGS: Brain parenchyma: No mass effect or midline shift is seen. Araiza-white differentiation is maintained. No findings suspicious for intracranial hemorrhage. No findings suggesting acute stroke. Periventricular hypoattenuation / patchy white matter hypodensities are statistically most often related to small vessel ischemic disease. Ventricles and extra-axial spaces: Ventricles are concordant with sulci. No findings suggesting hydrocephalus. Visualized paranasal sinuses: No findings suggesting acute sinusitis. Mastoid air cells: Clear. Included portions of the orbits:Included portions of the orbits with no evidence of fracture or other acute pathology. Bones: No fracture is seen. Impression: 1. No evidence for an acute intracranial abnormality. Electronically authenticated by: BRITTON FONTENOT Date: 2021-09-22 01:13 Normal [facility] LIPASEon 09-22-2021 Lipase [Catalytic activity/Vol] 28.0 U/L Critically low 73.0-393.0 [facility] Comment on above: Performed By: #### C BC #### [facility] [address] [address] [address] Deepak Greenfield PROF 14(COMP METB)on 022 Albumin [Mass/Vol] 3.3 g/dL Critically low 3.4-5.0 [facility] Comment on above: Performed By: #### B MP #### [facility] [address] [place], [place] [address] Dr. Deepak Greenfield Albumin/Globulin [Mass ratio] 0.9 {ratio} Normal [facility] Comment on above: Performed By: #### B MP #### [facility] [address] [address] [address] Deepak Greenfield ALP [Catalytic activity/Vol] 38 U/L Critically low 46-116 [facility] Comment on above: Performed By: #### B MP #### [facility] [address] [place] [address] Dr. Deepak Greenfield ALT [Catalytic activity/Vol] 91 U/L Critically high 16-63 [facility] Comment on above: Performed By: #### B MP #### [facility] [address] [place] [address] Dr. Deepak Greenfield Anion gap [Moles/Vol] 10.2 mmol/L Normal [facility] Comment on above: Performed By: #### B MP #### [facility] [address] [place] [address] Dr. Deepak Greenfield AST [Catalytic activity/Vol] 50 U/L Critically high 15-37 [facility] Comment on above: Performed By: #### B MP #### [facility] [address] [place] [address] Dr. Deepak Greenfield Bilirubin [Mass/Vol] 0.3 mg/dL Normal 0.2-1.0 [facility] Comment on above: Performed By: #### B MP #### [facility] [address] [place] [address] Dr. Deepak Greenfield Calcium [Mass/Vol] 8.6 mg/dL Normal 8.5-10.1 [facility] Comment on above: Performed By: #### B MP #### [facility] [address] [place] [address] Dr. Deepak Greenfield Chloride [Moles/Vol] 106 mmol/L Normal 98-107 [facility] Comment on above: Performed By: #### B MP #### [facility] [address] [place] [address] Dr. Deepak Greenfield CO2 [Moles/Vol] 29.9 mmol/L Normal 21.0-32.0 [facility] Comment on above: Performed By: #### B MP #### [facility] [address] [place] [address] Dr. Deepak Greenfield Creatinine [Mass/Vol] 0.65 mg/dL Critically low 0.70-1.30 [facility] Comment on above: Performed By: #### B MP #### [facility] [address] [address] [address] Deepak Greenfield EGFR-AF IRANIAN >60 Normal >=60 [facility] Comment on above: Performed By: #### B MP #### [facility] [address] [address] [address] Deepak Greenfield EGFR-NON AF IRANIAN >60 Normal >=60 [facility] Comment on above: Performed By: #### B MP #### [facility] [address] [address] [address] Deepak Greenfield Globulin (S) [Mass/Vol] 3.7 g/dL Normal [facility] Comment on above: Performed By: #### B MP #### [facility] [address] [place] [address] Dr. Deepak Greenfield Glucose [Mass/Vol] 105 mg/dL Normal 74-106 [facility] Comment on above: Performed By: #### B MP #### [facility] [address] [address] [address] Deepak Greenfield Potassium [Moles/Vol] 4.1 mmol/L Normal 3.5-5.1 [facility] Comment on above: Performed By: #### B MP #### [facility] [address] [place] [address] Dr. Deepak Greenfield Protein [Mass/Vol] 7.0 g/dL Normal 6.4-8.2 [facility] Comment on above: Performed By: #### B MP #### [facility] [address] [address] [address] Deepak Greenfield Sodium [Moles/Vol] 142 mmol/L Normal 136-145 [facility] Comment on above: Performed By: #### B MP #### [facility] [address] [place] [address] Dr. Deepak Greenfield Urea nitrogen [Mass/Vol] 13.0 mg/dL Normal 7.0-18.0 [facility] Comment on above: Performed By: #### B MP #### [facility] [address] [address] [address] Deepak Greenfield Urea nitrogen/Creatinine [Mass ratio] 20.0 mg/mg Normal [facility] Comment on above: Performed By: #### B MP #### [facility] [address] [address] [address] Deepak Greenfield Vital Signs Date Time Vital Sign Value Performing Clinician Facility 12-16-2022 10:18-0400 Blood Pressure Location Arline Lue [facility] 12-16-2022 10:18-0400 Body temperature 98.06 [degF] Arline Lue [facility] 12-16-2022 10:18-0400 Diastolic blood pressure 78 mm[Hg] Arline Lue [facility] 12-16-2022 10:18-0400 Heart rate 84 /min Arline Lue [facility] 12-16-2022 10:18-0400 Systolic blood pressure 128 mm[Hg] Arline Lue [facility] 12-23-2021 11:30-0400 Body height 157.48 cm Antionette Leonel Other [facility] [employer] Other 12-23-2021 11:30-0400 Body mass index (BMI) [Ratio] 25.79 kg/m2 Antionette Leonel Other [facility] [employer] Other 12-23-2021 11:30-0400 Body temperature 98.5 [degF] Antionette Leonel Other [facility] Other 12-23-2021 11:30-0400 Body weight 63.96 kg Antionette Leonel Other [facility] Other 12-23-2021 11:30-0400 Diastolic blood pressure 70 mm[Hg] Antionette Leonel Other [facility] Other 12-23-2021 11:30-0400 Respiratory rate 20 /min Antionette Leonel Other [facility] Other 12-23-2021 11:30-0400 SaO2% (BldA) [Mass fraction] 99 % Antionette Leonel Other [facility] Other 12-23-2021 11:30-0400 Systolic blood pressure 120 mm[Hg] Antionette Leonel Other [facility] Other 10-22-2021 10:29-0400 Blood Pressure Location Arline Lue [facility] [employer] 10-22-2021 10:29-0400 Diastolic blood pressure 92 mm[Hg] Arline Lue [facility] 10-22-2021 10:29-0400 Heart rate 100 /min Arline Lue [facility] 10-22-2021 10:29-0400 Respiratory rate 16 /min Arline Lue [facility] 10-22-2021 10:29-0400 Systolic blood pressure 137 mm[Hg] Arline Lue [facility] Encounters Encounter Date Encounter Type Care Provider Facility Start: 01-05-2023 End: 01-05-2023 ambulatory Antionette Leonel Other [employer] Other Start: 01-05-2023 Office outpatient visit 25 minutes Antionette Leonel [facility] Start: 12-16-2022 End: 12-17-2022 ambulatory Arline SchwarzYulissa Abner Facility:[facility] Start: 12-16-2022 End: 12-16-2022 Patient encounter procedure Arline SchwarzYulissa Messinakaren [facility] Start: 08-04-2022 End: 08-04-[address] FAM VENTURA Facility: Start: 07-29-2022 End: 08-02-2022 Evaluation and management of inpatient DR FAM VENTURA Facility:[facility] Start: 07-26-2022 End: 07-27-[address] FAM VENTURA Facility: Start: 07-23-2022 End: 07-24-2022 ambulatory FAM VENTURA Facility:[facility] Start: 07-23-2022 End: 07-23-2022 Patient encounter procedure FAM VENTURA [facility] Start: 06-23-2022 End: 06-23-2022 ambulatory Antionette Leonel Other [employer] Other Start: 06-23-2022 Office outpatient visit 25 minutes Antionette Leonel [facility] Start: 06-03-2022 End: 06-04-[address] FAM VENTURA Facility:[facility] Start: 05-08-2022 Letter encounter Abundio Mares DDS Work Phone: [facility] Start: 04-22-2022 End: 04-23-[address] FAM VENTURA Facility:[facility] Start: 03-19-2022 End: 03-20-[address] FAM VENTURA Facility:[facility] Start: 03-10-2022 End: 03-11-[address] FAM VENTURA Facility:[facility] Start: 01-24-2022 End: 01-24-[address] DIAMOND Duenas Facility:[facility] Start: 01-18-2022 End: 01-18-2022 ambulatory ANJELICA DOLL . Facility:[facility] Start: 01-13-[address] RODRIGUEZ VANG Facili ty:[facility] Start: 01-12-2022 End: 01-13-[address] RODRIGUEZ VANG Facility:[facility] Start: 01-06-2022 End: 01-07-[address] FAM VENTURA Facility:[facility] Start: 12-23-2021 End: 12-23-2021 ambulatory Antionette Leonel Other [employer] Other Start: 12-23-2021 Office outpatient visit 25 minutes Antionette Leonel [facility] Start: 12-16-2021 End: 12-17-2021 ambulatory UNKNOWN PROVIDER Facility:[facility] Start: 12-16-2021 End: 12-17-2021 Patient encounter procedure Mora Powell [facility] Work Phone: [facility] Start: 12-10-2021 End: 12-10-2021 Patient encounter procedure Alrine Levine [facility] Start: 11-20-2021 End: 11-21-[address] FAM VENTURA Facility:[facility] Start: 11-13-2021 End: 11-14-2021 ambulatory ARLINE LEVINE . Facility:[facility] Start: 10-31-2021 End: 11-01-[address] FAM VENTURA Facility:[facility] Start: 10-22-2021 End: 10-22-2021 Patient encounter procedure Arline Levine [facility] Start: 10-21-2021 End: 10-21-[address] FAM VENTURA Facility:[facility] Start: 09-29-2021 End: 09-29-[address] FAM VENTURA Facility:[facility] Start: 09-22-2021 End: 09-22-2021 ambulatory ABBI SANCHEZ Facility:[facility] Plan of Treatment Date Care Activity Detail Author Start: 02-01-2030 Shingles (RZV) Vacci ne (1 of 2) Shingles (RZV) Vaccine (1 of 2) [facility] Start: 01-17-2022 Influenza vaccination Influenza Vacc ine (#1) [facility] Start: 02-01-2015 Lipid panel Cholesterol [facility] Start: 05-20-2012 Annual wellness visit [id number] Start: 02-01-1998 Hepatitis C screening Hepatitis C An tibody [facility] Start: 02-01-1998 Tetanus + diphtheria + acellular pertussis vaccine (product) Tdap Booster [facility] Start: 02-01-1995 HIV screening HIV Test [facility] Start: 1980 COVID-19 Vaccine (#1) COVID-19 Vacci ne (#1) [facility] Immunizations Immunization Date Immunization Notes Care Provider Lucero [facility] 03-04-2020 pneumococcal conjuga te vaccine, 13 valent Mora Urmetz [facility] Work Phone: [facility] 01-26-2018 influenza, injectabl e, quadrivalent, preservative free Mora Urmetz RD Work Phone: [facility] 01-26-2018 influenza virus vaccine, unspecified formulation Mora Urmetz RD Work Phone: [facility] 02-10-2017 influenza virus vaccine, unspecified formulation Arline Levine [facility] 02-10-2017 influenza, injectabl e, quadrivalent, contains preservative Mora Urmetz RD Work Phone: [facility] 02-07-2015 influenza virus vaccine, unspecified formulation Arline Lue [facility] 02-07-2015 influenza, injectabl e, quadrivalent, preservative free Mora Urmetz RD Work Phone: [facility] 10-23-2014 pneumococcal polysaccharide vaccine, [address] Work Phone: [facility] 12-31-2010 influenza virus vaccine, unspecified formulation Arline Lukaren [facility] 12-31-2010 influenza, seasonal, injectable Mora Urmetz R[facility] Work Phone: [facility] 03-06-2009 novel [id number], preservative-free, injectable Mora Urmetz RDH Work Phone: [facility] 02-09-2008 influenza virus vaccine, whole virus Mora Urmetz RD Work Phone: [facility] 02-09-2008 influenza, whole Arline Lue [facility] NEGATED: Highlighted row has not occurred!12-10-2021 SARS-CoV-2 mRNA (tozinameran 5y-11y) vaccine Arline Levine [facility] Payers Date Payer Category Payer Medicaid [id number] 2011 Medicare MEDICARE MEDICAR E PART A & B [id number] 2011-Present [address] [place] [address] Medicare [id number] 1980 Unknown [id number] 2.16.840.1.277956.3.579.2.732 1980 Unknown [id number] 2.16.840.1.547426.3.579.2.593 1980 Unknown [id number] 2.16.840.1.158637.3.579.2.593 1980 Unknown [id number] 2.16.840.1.509176.3.579.2.593 1980 Unknown [id number] 2.16.840.1.647120.3.579.2.593 1980 Unknown [id number] 2.16.840.1.007516.3.579.2.727 1980 Unknown [id number] 2.16.840.1.675786.3.579.2.727 1959 Medicaid [id number] 1959 Medicare [id number] 2.16.840.1.619204.19 1953 Unknown [id number] 2.16.840.1.162093.3.579.2.593 1953 Unknown [id number] 2.16.840.1.365932.3.579.2.593 1953 Unknown [id number] 2.16.840.1.290352.3.579.2.593 1953 Unknown [id number] 2.16.840.1.082099.3.579.2.593 1953 Unknown [id number] 2.16.840.1.436856.3.579.2.593 1953 Unknown [id number] 2.16.840.1.293516.3.579.2.593 1953 Unknown [id number] 2.16.840.1.962789.3.579.2.593 1953 Unknown [id number] 2.16.840.1.945494.3.579.2.593 1953 Unknown [id number] 2.16.840.1.824043.3.579.2.593 1953 Unknown [id number] 2.16.840.1.794035.3.579.2.593 1953 Unknown [id number] 2.16.840.1.381010.3.579.2.593 1953 Unknown [id number] 2.16.840.1.235751.3.579.2.593 1953 Unknown [id number] 2.16.840.1.045287.3.579.2.593 1953 Unknown [id number] 2.16.840.1.542711.3.579.2.593 Social History Date Type Detail Facility Tobacco smoking status No Smoking Status Entered [facility] Sex Assigned At Male [facility] Tobacco smoking status [facility] Tobacco smoking consumption unknown [facility] Start: 1980 [facility] smoking status No Smoking Status Entered [facility] Start: 12-16-2022 Tobacco smoking status Never smoked tobacco (finding) [facility] Tobacco smoking status Never [facility] Functional Status Date Assessment Result Facility 12-16-2022 Functional Status N/A [facility] 12-10-2021 Functional Status N/A [facility] 10-22-2021 Functional Status N/A [facility] Clinical Notes 10-22-2021 to 01-05-2023 Note Date & Type Note Facility 01-05-2023 Evaluation note Encounter Date Diagnosis Assessment Notes Dec, COPD (chronic obstructive pulmonary disease) (ICD-10 - J44.9) [facility] Other 08-30-2023 Hospital Discharge instructions Patient Education 12/16/2022 11:25:48 Kegel Exercises Kegel Exercises Kegel exercises can help strengthen your pelvic floor muscles. The pelvic floor is a group of muscles that support your rectum, small intestine, and bladder. In females, pelvic floor muscles also help support the uterus. These muscles help you control the flow of urine and stool (feces). Kegel exercises are painless and simple. They do not require any equipment. Your provider may suggest Kegel exercises to: Improve bladder and bowel control. Improve sexual response. Improve weak pelvic floor muscles after surgery to remove the uterus (hysterectomy) or after , in females. Improve weak pelvic floor muscles after prostate gland removal or surgery, in males. Kegel exercises involve squeezing your pelvic floor muscles. These are the same muscles you squeezewhen you try to stop the flow of urine or keep from passing gas. The exercises can be done while sitting, standing, or lying down, but it is best to vary your position. Ask your health care provider which exercises are safe for you. Do exercises exactly as told by your health care provider and adjust them as directed. Do not begin these exercises until told by your health care provider. Exercises How to do Kegel exercises: 1.Squeeze your pelvic floor muscles tight. You should feel a tight lift in your rectal area. If youare a female, you should also feel a tightness in your vaginal area. Keep your stomach, buttocks, and legs relaxed. 2.Hold the muscles tight for up to 10 seconds. 3.Breathe normally. 4.Relax your muscles for up to 10 seconds. 5.Repeat as told by your health care provider. Repeat this exercise daily as told by your health care provider. Continue to do this exercise for at least 4 6 weeks, or for as long as told by your health care provider. You may be referred to a physical therapist who can help you learn more about how to do Kegel exercises. Depending on your condition, your health care provider may recommend: Varying how long you squeeze your muscles. Doing several sets of exercises every day. Doing exercises for several weeks. Making Kegel exercises a part of your regular exercise routine. This information is not intended to replace advice given to you by your health care provider. Make sure you discuss any questions you have with your health care provider. Document Revised: 08/14/2021 Document Reviewed: 08/14/2021 [employer] Patient Education 2022 [employer]. Follow Up Care 12/10/2021 11:51:23 With:Abner BYRNE, JUNIOR Hawk, URO Address: When: Unknown Comments:LENORA [facility] Иван 03-07-2023 Evaluation note* Encounter Date Diagnosis Assessment Notes Treatment Notes Treatment Clinical Notes Jun, COPD (chronic obstructive pulmonary disease) (ICD-10 - J44.9) Continue with respiratory regemin, including VEST therapy, as you currently are doing. Call office with respiratory questions or concerns. [facility] Other 09-06-2022 Evaluation note* Encounter Date Diagnosis Assessment Notes Treatment Notes Treatment Clinical Notes Dec, COPD (chronic obstructive pulmonary disease) (ICD-10 - J44.9) Continue with VEST therapy twice a day. Ok to increase to TID if needed. [facility] Other 08-30-2022 NotePt presented today for OR evaluation. Limited eval was completed. Pt's case is not urgent updated contact information and placed Pt on OR list. Step by step process for OR flyer was given to caregiver. Please wait for phone call from OR coordinator.[employer] [id number] Instructions* Patient Instructions * Mora Powell RDH - 12/16/2021 11:57 AM EDT Pt presented today for OR evaluation. Limited eval was completed. Pt's case is not urgent updated contact information and placed Pt on OR list. Step by step process for OR flyer was given to caregiver. Please wait for phone call from OR coordinator. documented in this [id number] History of Present illness Narrative* Mora Powell [facility] - 12/16/2021 11:42 AM EDT ----- Wednesday, December 16, 2021 at 12:03:50 PM ----- ----- Provider: [id number] Heriberto Powell Hygienist -- Clinic: [facility] ----- COUNT INCLUDES [facility], Pt is ready for tx. Pt presented for dental evaluation for future OR. Caregiver in the room. Patient is non-verbal. Severe intellectual disability, seizure disorder Caregiver stated patient is not pain and no complaining. Radiograph taken today: no possible due to patient behavior Case requested for OR. Guardian mother Katia Lopez. [phone]. [facility] [phone] EXT [id number] ( [facility] AVS printed and handed flyer for step by step instruction of OR process to Caregiver exam By: Elliott Ham [facility]. OR ----- Signed on Thursday, December 16, 2021 at 12:18:18 PM ----- ----- Provider: [id number] Heriberto Adams DDS -- Clinic: [facility] ----- documented in this [id number] Hospital Discharge instructions Patient Education 12/10/2021 11:47:35 Urinary Incontinence Urinary Incontinence Urinary incontinence refers to a condition in which a person is unable to control where and when topass urine. A person with this condition will urinate when he or she does not mean to (involuntarily). What are the causes? This condition may be caused by: Medicines. Infections. Constipation. Overactive bladder muscles. Weak bladder muscles. Weak pelvic floor muscles. These muscles provide support for the bladder, intestine, and, in women,the uterus. Enlarged prostate in men. The prostate is a gland near the bladder. When it gets too big, it can pinch the urethra. With the urethra blocked, the bladder can weaken and lose the ability to empty properly. Surgery. Emotional factors, such as anxiety, stress, or post-traumatic stress disorder (PTSD). Pelvic organ prolapse. This happens in women when organs shift out of place and into the vagina. This shift can prevent the bladder and urethra from working properly. What increases the risk? The following factors may make you more likely to develop this condition: Older age. Obesity and physical inactivity. and childbirth. Menopause. Diseases that affect the nerves or spinal cord (neurological diseases). Long-term (chronic) coughing. This can increase pressure on the bladder and pelvic floor muscles. What are the signs or symptoms? Symptoms may vary depending on the type of urinary incontinence you have. They include: A sudden urge to urinate, but passing urine involuntarily before you can get to a bathroom (urge incontinence). Suddenly passing urine with any activity that forces urine to pass, such as coughing, laughing, exercise, or sneezing (stress incontinence). Needing to urinate often, but urinating only a small amount, or constantly dribbling urine (overflow incontinence). Urinating because you cannot get to the bathroom in time due to a physical disability, such as arthritis or injury, or communication and thinking problems, such as Alzheimer disease (functional incontinence). How is this diagnosed? This condition may be diagnosed based on: Your medical history. A physical exam. Tests, such as: ?Urine tests. ?X-rays of your kidney and bladder. ?Ultrasound. ?CT scan. ?Cystoscopy. In this procedure, a health care provider inserts a tube with a light and camera (cystoscope) through the urethra and into the bladder in order to check for problems. ?Urodynamic testing. These tests assess how well the bladder, urethra, and sphincter can store and release urine. There are different types of urodynamic tests, and they vary depending on what the test is measuring. To help diagnose your condition, your health care provider may recommend that you keep a log of when you urinate and how much you urinate. How is this treated? Treatment for this condition depends on the type of incontinence that you have and its cause. Treatment may include: Lifestyle changes, such as: ?Quitting smoking. ?Maintaining a healthy weight. ?Staying active. Try to get 150 minutes of moderate-intensity exercise every week. Ask your health care provider which activities are safe for you. ?Eating a healthy diet. ?Avoid high-fat foods, like fried foods. ?Avoid refined carbohydrates like white bread and white rice. ?Limit how much alcohol and caffeine you drink. ?Increase your fiber intake. Foods such as fresh fruits, vegetables, beans, and whole grains are healthy sources of fiber. Pelvic floor muscle exercises. Bladder training, such as lengthening the amount of time between bathroom breaks, or using the bathroom at regular intervals. Using techniques to suppress bladder urges. This can include distraction techniques or controlled breathing exercises. Medicines to relax the bladder muscles and prevent bladder spasms. Medicines to help slow or prevent the growth of a man's prostate. Botox injections. These can help relax the bladder muscles. Using pulses of electricity to help change bladder reflexes (electrical nerve stimulation). For women, using a medical leader to prevent urine leaks. This is a small, tampon-like, disposable device that is inserted into the urethra. Injecting collagen or carbon beads (bulking agents) into the urinary sphincter. These can help thicken tissue and close the bladder opening. Surgery. Follow these instructions at home: Lifestyle Limit alcohol and caffeine. These can fill your bladder quickly and irritate it. Keep yourself clean to help prevent odors and skin damage. Ask your doctor about special skin creams and cleansers that can protect the skin from urine. Consider wearing pads or adult diapers. Make sure to change them regularly, and always change them right after experiencing incontinence. General instructions Take fkct-teg-[id number] and prescription medicines only as told by your health care provider. Use the bathroom about every 3 4 hours, even if you do not feel the need to urinate. Try to empty your bladder completely every time. After urinating, wait a minute. Then try to urinate again. Make sure you are in a relaxed position while urinating. If your incontinence is caused by nerve problems, keep a log of the medicines you take and the times you go to the bathroom. Keep all follow-up visits as told by your health care provider. This is important. Contact a health care provider if: You have pain that gets worse. Your incontinence gets worse. Get help right away if: You have a fever or chills. You are unable to urinate. You have redness in your groin area or down your legs. Summary Urinary incontinence refers to a condition in which a person is unable to control where and when topass urine. This condition may be caused by medicines, infection, weak bladder muscles, weak pelvic floor muscles, enlargement of the prostate (in men), or surgery. The following factors increase your risk for developing this condition: older age, obesity, and childbirth, menopause, neurological diseases, and chronic coughing. There are several types of urinary incontinence. They include urge incontinence, stress incontinence, overflow incontinence, and functional incontinence. This condition is usually treated first with lifestyle and behavioral changes, such as quitting smoking, eating a healthier diet, and doing regular pelvic floor exercises. Other treatment options include medicines, bulking agents, medical devices, electrical nerve stimulation, or surgery. This information is not intended to replace advice given to you by your health care provider. Make sure you discuss any questions you have with your health care provider. Document Released: 05/13/2005 Document Revised: 04/15/2018 Document Reviewed: 07/15/2017 [employer] Patient Education 2020 [employer] Follow Up Care 10/22/2021 11:38:20 With:Abner BYRNE, JUNIOR Hawk, [facility] Address: When:1 year Comments:W/ tammy [place] [facility] 07-06-2022 Hospital Discharge instructions Patient Education 10/22/2021 11:42:33 Urinary Incontinence Urinary Incontinence Urinary incontinence refers to a condition in which a person is unable to control where and when topass urine. A person with this condition will urinate when he or she does not mean to (involuntarily). What are the causes? This condition may be caused by: Medicines. Infections. Constipation. Overactive bladder muscles. Weak bladder muscles. Weak pelvic floor muscles. These muscles provide support for the bladder, intestine, and, in women,the uterus. Enlarged prostate in men. The prostate is a gland near the bladder. When it gets too big, it can pinch the urethra. With the urethra blocked, the bladder can weaken and lose the ability to empty properly. Surgery. Emotional factors, such as anxiety, stress, or post-traumatic stress disorder (PTSD). Pelvic organ prolapse. This happens in women when organs shift out of place and into the vagina. This shift can prevent the bladder and urethra from working properly. What increases the risk? The following factors may make you more likely to develop this condition: Older age. Obesity and physical inactivity. and childbirth. Menopause. Diseases that affect the nerves or spinal cord (neurological diseases). Long-term (chronic) coughing. This can increase pressure on the bladder and pelvic floor muscles. What are the signs or symptoms? Symptoms may vary depending on the type of urinary incontinence you have. They include: A sudden urge to urinate, but passing urine involuntarily before you can get to a bathroom (urge incontinence). Suddenly passing urine with any activity that forces urine to pass, such as coughing, laughing, exercise, or sneezing (stress incontinence). Needing to urinate often, but urinating only a small amount, or constantly dribbling urine (overflow incontinence). Urinating because you cannot get to the bathroom in time due to a physical disability, such as arthritis or injury, or communication and thinking problems, such as Alzheimer disease (functional incontinence). How is this diagnosed? This condition may be diagnosed based on: Your medical history. A physical exam. Tests, such as: ?Urine tests. ?X-rays of your kidney and bladder. ?Ultrasound. ?CT scan. ?Cystoscopy. In this procedure, a health care provider inserts a tube with a light and camera (cystoscope) through the urethra and into the bladder in order to check for problems. ?Urodynamic testing. These tests assess how well the bladder, urethra, and sphincter can store and release urine. There are different types of urodynamic tests, and they vary depending on what the test is measuring. To help diagnose your condition, your health care provider may recommend that you keep a log of when you urinate and how much you urinate. How is this treated? Treatment for this condition depends on the type of incontinence that you have and its cause. Treatment may include: Lifestyle changes, such as: ?Quitting smoking. ?Maintaining a healthy weight. ?Staying active. Try to get 150 minutes of moderate-intensity exercise every week. Ask your health care provider which activities are safe for you. ?Eating a healthy diet. ?Avoid high-fat foods, like fried foods. ?Avoid refined carbohydrates like white bread and white rice. ?Limit how much alcohol and caffeine you drink. ?Increase your fiber intake. Foods such as fresh fruits, vegetables, beans, and whole grains are healthy sources of fiber. Pelvic floor muscle exercises. Bladder training, such as lengthening the amount of time between bathroom breaks, or using the bathroom at regular intervals. Using techniques to suppress bladder urges. This can include distraction techniques or controlled breathing exercises. Medicines to relax the bladder muscles and prevent bladder spasms. Medicines to help slow or prevent the growth of a man's prostate. Botox injections. These can help relax the bladder muscles. Using pulses of electricity to help change bladder reflexes (electrical nerve stimulation). For women, using a medical leader to prevent urine leaks. This is a small, tampon-like, disposable device that is inserted into the urethra. Injecting collagen or carbon beads (bulking agents) into the urinary sphincter. These can help thicken tissue and close the bladder opening. Surgery. Follow these instructions at home: Lifestyle Limit alcohol and caffeine. These can fill your bladder quickly and irritate it. Keep yourself clean to help prevent odors and skin damage. Ask your doctor about special skin creams and cleansers that can protect the skin from urine. Consider wearing pads or adult diapers. Make sure to change them regularly, and always change them right after experiencing incontinence. General instructions Take uimp-kgb-prrfkyr and prescription medicines only as told by your health care provider. Use the bathroom about every 3 4 hours, even if you do not feel the need to urinate. Try to empty your bladder completely every time. After urinating, wait a minute. Then try to urinate again. Make sure you are in a relaxed position while urinating. If your incontinence is caused by nerve problems, keep a log of the medicines you take and the times you go to the bathroom. Keep all follow-up visits as told by your health care provider. This is important. Contact a health care provider if: You have pain that gets worse. Your incontinence gets worse. Get help right away if: You have a fever or chills. You are unable to urinate. You have redness in your groin area or down your legs. Summary Urinary incontinence refers to a condition in which a person is unable to control where and when topass urine. This condition may be caused by medicines, infection, weak bladder muscles, weak pelvic floor muscles, enlargement of the prostate (in men), or surgery. The following factors increase your risk for developing this condition: older age, obesity, and childbirth, menopause, neurological diseases, and chronic coughing. There are several types of urinary incontinence. They include urge incontinence, stress incontinence, overflow incontinence, and functional incontinence. This condition is usually treated first with lifestyle and behavioral changes, such as quitting smoking, eating a healthier diet, and doing regular pelvic floor exercises. Other treatment options include medicines, bulking agents, medical devices, electrical nerve stimulation, or surgery. This information is not intended to replace advice given to you by your health care provider. Make sure you discuss any questions you have with your health care provider. Document Released: 05/13/2005 Document Revised: 04/15/2018 Document Reviewed: 07/15/2017 [employer] Patient Education 2020 [employer]. 10/22/2021 11:42:30 Renal Mass Renal Mass A renal mass is a growth in the kidney. A renal mass may be found while performing an MRI, CT scan,or ultrasound for other problems of the abdomen. Certain types of cancers, infections, or injuries can cause a renal mass. A renal mass that is cancerous (malignant) may grow or spread quickly. Others are harmless (benign). What are common types of renal masses? Renal masses include: Tumors. These may be cancerous (malignant) or noncancerous (benign). ?The most common type of kidney cancer is renal cell carcinoma. ?The most common benign tumors of the kidney include renal adenomas, oncocytomas, and angiomyolipoma (AML). Cysts. These are fluid-filled sacs that form on or in the kidney. ?It is not always known what causes a cyst to develop in or on the kidney. ?Most kidney cysts do not cause symptoms and do not need to be treated. What type of testing might I need? Your health care provider may recommend that you have tests to diagnose the cause of your renal mass. The following tests may be done if a renal mass is found: Physical exam. Blood tests. Urine tests. Imaging tests, such as ultrasound, CT scan, or MRI. Biopsy. This is a small sample that is removed from the renal mass and tested in a lab. The exact tests and how often they are done will depend on: The size and appearance of the renal mass. Risk factors or medical conditions that increase your risk for problems. Any symptoms associated with the renal mass, or concerns that you have about it. Tests and physical exams may be done once, or they may be done regularly for a period of time. Tests and exams that are done regularly will help monitor whether the mass is growing and beginning to cause problems. What are common treatments for renal masses? Treatment is not always needed for this condition. Your health care provider may recommend careful monitoring (watchful waiting) and regular tests and exams. Treatment will depend on the cause of themass. Follow these instructions at home: What you need to do at home will depend on the cause of the mass. Follow the instructions that yourhealth care provider gives to you. In general: Take lqix-tuc-wagaizf and prescription medicines only as told by your health care provider. If you are prescribed an antibiotic medicine, take it as told by your health care provider. Do not stop taking the antibiotic even if you start to feel better. Follow any restrictions that are given to you by your health care provider. Keep all follow-up visits as told by your health care provider. This is important. ?You may need to see your health care provider once or twice a year to have CT scans and ultrasounds done. These tests will show if your renal mass has changed or grown bigger. Contact a health care provider if you: Have pain in the side or back (flank pain). Have a fever. Feel full soon after eating. Have pain or swelling in the abdomen. Lose weight. Get help right away if: Your pain gets worse. There is blood in your urine. You cannot urinate. You have chest pain. You have trouble breathing. Summary A renal mass is a growth in the kidney. It may be cancerous (malignant) and grow or spread quickly,or it may be harmless (benign). Renal masses may be found while performing an MRI, CT scan, or ultrasound for other problems of theabdomen. Your health care provider may recommend that you have tests to diagnose the cause of your renal mass. This may include a physical exam, blood tests, urine tests, imaging, or a biopsy. Treatment is not always needed for this condition. Careful monitoring (watchful waiting) may be recommended. This information is not intended to replace advice given to you by your health care provider. Make sure you discuss any questions you have with your health care provider. Document Released: 10/31/2014 Document Revised: 05/12/2018 Document Reviewed: 05/12/2018 [employer] Patient Education 2020 [employer]. Follow Up Care 09/22/2021 14:10:46 With:Arline Levine MD, URL, [facility] Address: When:1 month [facility] evaluation + Plan note Future Appointments Appointment Date:11/19/2021 10:00:00 AM Scheduled Provider:Arline Levine MD Location:[facility] Appointment Type:URO Office Visit [facility] evaluation + Plan note Future Appointments Appointment Date:12/16/2022 10:15:00 AM Scheduled Provider:Abner BYRNE, Arline Little Location:[facility] Appointment Type:URO Office Visit [facility] History general Narrative - Reported* Type Description Date Medical History Mental retardation Medical History Seizure Disorder Medical History Tristen Syndrome Medical History ADD Medical History Hypothyroidism Medical History Spastic Quadraparesis Medical History Osteoporosis Medical History Tristen-Beuren syndrome Medical History Seizure disorder Medical History Seizure disorder Medical History COPD Surgical History VNS REPLACED 2021 [employer] Other Hospital course Narrative No data available for this section [facility] Hospital Discharge instructions No data available for this section [facility] note No data available for this section [facility] Summary Purpose Family History No Family History Records FoundNo Family History Records FoundNo Family History Records Found Advance Directives No Advanced Directives Records FoundNo Advanced Directives Records FoundNo Advanced Directives Records Found Additional Source Comments Care Team (unrecognized sect ion and content) Winding Department Supervisor Relationship Specialty Start Date End Date Radha MaresKETAN leiva [address] [place] [address] Resident Dentistry 02/23/20 Winding Department Supervisor Relationship Specialty Start Date End Date VishnuAbundio barron Bassam [address] [place] [address] Resident Dentistry 02/23/20 (unrecognized sect ion and content) No Status Records FoundNo Status Records FoundNo Status Records Found INFORMATION SOURCE (unrecogn ized section and content) DATE CREATED AUTHOR 12/18/2021 [employer] DATE CREATED AUTHOR AUTHOR'S ORGANIZ ATION 08/05/2022 [employer] [facility] DATE CREATED AUTHOR AUTHOR'S ORGANIZ ATION 01/26/2023 [facility] REASON FOR VISIT (unrecogniz ed section and content) 6 mo f/u COPD, COPD6 month F ollow up6 month Follow up FOR RECORDS PERTAINING TO PATIENTS WHO ARE OR HAVE BEEN ENROLLED IN A CHEMICAL DEPENDENCY/SUBSTANCEABUSE PROGRAM, SOME INFORMATION MAY BE OMITTED. This clinical summary was aggregated from multiple sources. Caution should be exercised in using it in the provision of clinical care. This summary normalizes information from multiple sources, and as a consequence, information in this document may materially change the coding, format and clinical context of patient data. In addition, data may be omitted in some cases. CLINICAL DECISIONS SHOULD BE BASED ON THE PRIMARY CLINICAL RECORDS. [employer] provides no warranty or guarantee of the accuracy or completeness of information in this document.
[2023-05-10 17:00] LABS: Basophils Absolute Auto 0.1 10^3/uL (0.0-0.1); Basophils Percent Auto 0.5 % (0.2-2.0); Hematocrit 37.1 % (42.0-54.0); Hemoglobin 12.1 g/dL (14.0-18.0); Immature Granulocytes Abs Auto 0.05 10^3/uL (0.00-0.03); Immature Granulocytes Pct Auto 0.3 % (0.0-0.5); Lymphocytes Absolute Auto 1.9 10^3/uL (1.2-3.8); Mean Corpuscular HGB Conc 32.6 g/dL (29.9-35.2); Mean Corpuscular Hemoglobin 31.4 pg (25.9-34.0); Mean Corpuscular Volume 96.4 fL (80.0-94.0); Mean Platelet Volume 10.1 fL (9.5-13.5); Monocytes Absolute Auto 1.3 10^3/uL (0.3-0.8); Monocytes Percent Auto 8.1 % (1.7-12.0); Neutrophils Absolute Auto 12.2 10^3/uL (1.4-6.5); Neutrophils Percent Auto 79.1 % (43.0-75.0); Platelet Count 301 10^3/uL (150-450); Red Blood Count 3.85 10^6/uL (4.70-6.10); Red Cell Distribution Width 13.1 % (11.0-15.0); White Blood Count 15.4 10^3/uL (4.0-11.0)
[2023-05-10 17:14] LABS: Anion Gap 13.6; BUN Creatinine Ratio 11.6; Calcium 8.9 mg/dL (8.5-10.1); Carbon Dioxide 26.3 mmol/L (21.0-32.0); Chloride 98 mmol/L (98-107); Estimated GFR (African America >60 (>=60); Estimated GFR (Non-African Ame >60 (>=60); Glucose 88 mg/dL (74-106); Potassium 3.9 mmol/L (3.5-5.1); Sodium 134 mmol/L (136-145)
[2023-05-10 17:45] LABS: Influenza Virus A Antigen Negative; Influenza Virus B Antigen Negative; Internal Control Within Normal Limits
[2023-05-10 18:00] LABS: SARS-CoV-2 Ag NEGATIVE (NEGATIVE)
--- NOTE | 2023-05-10 18:43 | CT_ITS ---
[address] [address] Patient Name: FRANCOIS LOPEZ MRN: [id number] date: 1980 Sex: M Assigned Patient Location: ER Current Patient Location: ED.MAIN Accession/Order Number: [id number] Exam Date: 05/10/2023 19:20 Report Date: 05/10/2023 20:01 At the request of: LALI COOK Procedure: CT head/brain wo con CT HEAD WITHOUT CONTRAST. INDICATION: Seizures. COMPARISON: 04/13/2023 TECHNIQUE: Axial CT head images from the skull base to the vertex without IV contrast were acquired. Coronal and sagittal reformats were also obtained. FINDINGS: EXTRA-AXIAL SPACE: Age-appropriate ventricles. No acute extra-axial collection. No extra-axial mass. No midline shift. CEREBRUM: No focal abnormality. No CT evidence of acute large territorial cortical infarct, hemorrhage or mass effect. CEREBELLUM: No focal abnormality. No CT evidence of acute infarct, hemorrhage or mass effect. BRAINSTEM: No focal abnormality. No CT evidence of acute infarct, hemorrhage or mass effect. EXTRACRANIAL STRUCTURES. The paranasal sinuses are clear. Mastoid air cells are clear. Orbits are unremarkable. No discrete pituitary mass. Intact calvarium. CT/CT head/brain wo con IMPRESSION: No acute intracranial abnormality. Electronically authenticated by: TRINA WHEAT Date: 05/10/2023 20:01
[2023-05-10] MEDS: 0.9 % SODIUM CHLORIDE 1,000 ML 999 ML IV (20:17)
[2023-05-10] MEDS: 0.9 % SODIUM CHLORIDE 1,000 ML 1000 ML IV (23:01)
[2023-05-10 23:36] LABS: Bilirubin Urine SMALL (NEGATIVE); Blood Urine LARGE (NEGATIVE); Clarity Urine CLEAR (CLEAR); Color Urine BROWN (YELLOW); Glucose Urine UA NEGATIVE (NEGATIVE); Ketones Urine TRACE mg/dL (NEGATIVE); Leukocyte Esterase Urine MODERATE (NEGATIVE); Nitrite Urine NEGATIVE (NEGATIVE); Protein Urine 30 mg/dL (NEG/TRACE); Specific Gravity Urine 1.015 (1.005-1.025)
[2023-05-11] VITALS (49 sets, daily range): BP systolic 98–132; BP diastolic 51–83; PULSE 70–102; RESP 15–118; TEMP 36.4–39.2; O2SAT 85–100; BMI 22.2
--- NOTE | 2023-05-11 00:01 | CT_ITS ---
[address] [address] Patient Name: FRANCOIS LOPEZ MRN: [id number] date: 1980 Sex: M Assigned Patient Location: ER Current Patient Location: Accession/Order Number: [id number] Exam Date: 05/11/2023 00:25 Report Date: 05/11/2023 01:17 At the request of: ABBI SANCHEZ Procedure: CT angio chest EXAMINATION:CT angio chest INDICATION:hypoxemia COMPARISON:None TECHNIQUE:Thin section transaxial slices were acquired through the chest. Coronal and sagittal reconstructed images were reviewed. IV CONTRAST:With intravenous contrast per CT angiogram protocol. FINDINGS: LUNGS: There is breathing motion artifact contributing to image degradation of the lung parenchyma. There is patchy groundglass airspace disease in the right upper lobe and left lower lobe concerning for an infectious process. There is endobronchial thickening and mucous plugging elsewhere throughout both lungs. PLEURAL CAVITY: No pleural effusion. MEDIASTINUM: Trachea and central airways are patent. HEART: The heart is unremarkable. VASCULAR:There is no aneurysm or dissection of the thoracic aorta. Although there is good opacification of the pulmonary arteries, there is breathing motion artifact contributing to significant image degradation for evaluation of segmental and subsegmental pulmonary arterial branches. No central pulmonary embolus is identified in the main pulmonary arteries or the interlobar branches. LYMPH NODES:There is left hilar and mediastinal lymphadenopathy. The left hilar lymph node measures 2.2 x 1.5 cm. The largest mediastinal lymph node is in the AP window measuring 1.8 x 1.0 cm. CHEST WALL/AXILLA: A left-sided pacemaker is in place. BONES: Osseous structures are unremarkable. VISUALIZED UPPER ABDOMEN: Upper abdominal structures are unremarkable. CT/CT angio chest IMPRESSION: 1. There is breathing motion artifact contributing to image degradation on this examination. No central pulmonary embolism is identified in the main pulmonary arteries or interlobar segments. The segmental and subsegmental branches are not optimally evaluated due to motion. 2. Patchy some solid airspace opacities in the right upper and left lower lobes concerning for an infectious process. There is also diffuse endobronchial thickening with mucous plugging. 3. Left hilar and mediastinal lymphadenopathy possibly reactive. Electronically authenticated by: JOSÉ MIGUEL WISE Date: 05/11/2023 01:17
--- NOTE | 2023-05-11 00:02 | PC.NURSE ---
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
[2023-05-11] MEDS: LORAZEPAM 2 MG/ML 1 ML VIAL 1 MG IV (00:06)
--- NOTE | 2023-05-11 00:14 | PC.NURSE ---
Spo2 was spot checked and was found to be at 88% with good waveform. The patient has had cough all night and has been producing phlegm that is green to brown in color. Patient was not tolerating a nasal canula, so simple mask was implemented instead. Patient is tolerating this better.
--- OUTSIDE RECORDS SUMMARY | 2023-05-11 03:04 | XMS_ITS | CCD ---
Author Name Unknown Address [address] [place] [address] Organization [facility] Care Team Providers Care Carpenter Prototype Name Role Phone FAM VENTURA Primary Care Physician PROVIDER, UNKNOWN Attending Unavailable PROVIDER, UNKNOWN Admitting [...] Unavailable DANIELABBI Attending Unavailable DANIELABBI Admitting Unavailable VENTURA, DR FAM Duran Primary Care Unavailable BRITTON [...] [amoxicillin-clav ulanate] Drug Allergy Unknown [facility] (8 sources) Phenytoin; Translations: [phenytoin] Drug Allergy Unknown [facility] (11 sources) Promethazine; Translations: [promethazine] Drug Allergy 7 Unknown [facility] (3 sources) Phenytoin; Translations: [PHENYTOIN SODIUM EXTENDED] Drug Allergy 7 [facility] [employer] [facility] Rep[facility] (3 sources) AMOXICILLIN-POT CLAVULANATE; Translations: [AMOXICILLIN-POT CLAVULANATE] Propensity to adverse reactions to drug (disorder) [facility] ([facility] source) 4-Aminobenzoic Acid Drug Allergy [facility] (1 source) Amoxicillin / Clavulanate Drug Allergy 4 [facility] (1 source) Levamisole Drug Allergy 4 [facility] (1 source) metroNIDAZOLE Drug Allergy [facility] (1 source) Phenytoin Drug Allergy 4 [facility] (1 source) remdesivir (investigational use) Drug allergy (disorder) [facility] Medications Current Medications Medication Drug [...] Status: Ordered take 2 tablets by [facility] in the morning, then take 3 tablets [...] Ordered Normal saline (7 sources) Start: 07-05-2015 [place] Saline Nasal Gel Nasal, TID, Refill(s) 0, Dry nasal passages Start Date: 07/05/15 Status: Ordered [place] Saline Nasal Gel Nasally Active omeprazole 40 [...] bid, Prophylaxis Start Date: 07/05/15 Status: Ordered [id number] oral powder for reconstitution (1 source) Start: 023 [id number] oral powder for reconstitution Start Date: 12/16/22 Status: Ordered polyethylene glycol 3350 08604 mg powder for oral solution (4 sources) [...] 06-30-2013 Chronic Other aftercare (5 sources) Other skilled nursing (current) drug therapy; Translations: [OTH CUSTODIAL CURRENT DRUG THERAPY] Onset: 06-03-2022 Episodic Other [...] (oxcarbazepine 600 mg Tab) polyethylene glycol 3350 ([id number] oral powder for reconstitution) polyethylene glycol 3350 (polyethylene glycol 3350 17 gram packet) rifaximin (Xifaxan 550 mg oral tablet) senna (Senna 8.6 mg oral tablet) sodium chloride nasal ([place] Saline Nasal Gel) tamsulosin Discharge Vitals Temperature [...] Application T (more content not included)... Normal [facility] Patient Educationon 12-17-19 23 Patient Education Obstetrics [...] provider. Document Revised: 08/14/2021 Document Reviewed: 08/14/2021 [employer] Patient Education ? 2022 [employer] Normal [facility] Physician Orderon 12-16-2022 Physician Order [id number] .00CD:127 Normal [facility] RAD - Ultrasound Reporton RAD - Ultrasound Report [id number] .00CD:127 Normal [facility] Urology Office/Clinic Noteon 12-16-2022 Urology Office/Clinic Note [...] of retractile testes. Pt currently resides in [facility]. CBC/CMP 08/01/22 1. Retractile testis (Q55.22: Retractile [...] Eye-Both, QID atorvastatin, 10 mg, Oral, Daily [place] Saline Nasal Gel, Nasal, TID azelastine nasal 137 mcg/inh spray, 2 spray(s), Nasal, As (more content not included)... Normal [facility] Comment on above: Result Comment: Elec tronically [...] GUANAKITO MEADE Date: 2022-08-04 18:50 Normal [facility] AMMONIAon 08-02-2022 Ammonia (P) [Moles/Vol] 87 umol/L Critically high - [facility] Comment on above: Performed By: #### B MP #### [facility] [address] [address] [address] Deepak Greenfield AMMONIAon 08-01-2022 Ammonia (P) [Moles/Vol] 42 umol/L Critically high - [facility] Comment on above: Performed By: #### M G, CMP #### [facility] [address] [address] [address] Deepak Greenfield CBC W MANUAL DIFFon 08-02-19 23 ATYPICAL LYMPH # 0.41 103/ul Normal [facility] Comment on above: Performed By: #### M G, CMP #### [facility] [address] [address] [address] Deepak Greenfield ATYPICAL LYMPH % 7 % Normal [facility] Comment on above: Performed By: #### M G, CMP #### [facility] [address] [place] [address] Dr. Deepak Greenfield BAND # 0.0 103/ul Normal 0.0-0.3 [facility] Comment on above: Performed By: #### M G, CMP #### [facility] [address] [place] [address] Dr. Deepak Greenfield BAND % 0 % Normal 0-5 [facility] Comment on above: Performed By: #### M G, CMP #### [facility] [address] [place] [address] Dr. Deepak Greenfield BASOM # 0.00 103/ul Normal 0.00-0.10 [facility] Comment on above: Performed By: #### M G, CMP #### [facility] [address] [place] [address] Dr. Deepak Greenfield BASOM % 0.0 % Critically low 0.2-2.0 [facility] Comment on above: Performed By: #### M G, CMP #### [facility] [address] [place] [address] Dr. Deepak Greenfield BLAST # Normal [facility] Comment on above: Performed By: #### M G, CMP #### [facility] [address] [place] [address] Dr. Deepak Greenfield BLAST % Normal [facility] Comment on above: Performed By: #### M G, CMP #### [facility] [address] [place] [address] Dr. Deepak Greenfield CORRECTED WBC Normal 4.0-11.0 [facility] Comment on above: Performed By: #### M G, CMP #### [facility] [address] [place] [address] Dr. Deepak Greenfield EOS # 0.06 103/ul Normal 0.00-0.70 [facility] Comment on above: Performed By: #### M G, CMP #### [facility] [address] [place] [address] Dr. Deepak Greenfield EOS% 1.0 % Normal 0.9-7.0 [facility] Comment on above: Performed By: #### M G, CMP #### [facility] [address] [address] [address] Deepak Greenfield HCT 37.6 % Critically low 42.0-54.0 [facility] Comment on above: Performed By: #### M G, CMP #### [facility] [address] [address] [address] Deepak Greenfield HGB 12.3 g/dl Critically low 14.0-18.0 [facility] Comment on above: Performed By: #### M G, CMP #### [facility] [address] [address] [address] Deepak Greenfield LYMPHM # 1.91 103/ul Normal 1.20-3.80 [facility] Comment on above: Performed By: #### M G, CMP #### [facility] [address] [address] [address] Deepak Greenfield LYMPHM% 33.0 % Normal 20.5-60.0 [facility] Comment on above: Performed By: #### M G, CMP #### [facility] [address] [address] [address] Deepak Greenfield MCH 31.7 pg Normal 25.9-34.0 [facility] Comment on above: Performed By: #### M G, CMP #### [facility] [address] [address] [address] Deepak Greenfield MCHC 32.7 g/dl Normal 29.9-35.2 [facility] Comment on above: Performed By: #### M G, CMP #### [facility] [address] [address] [address] Deepak Greenfield MCV 96.9 fL Critically high 80.0-94.0 [facility] Comment on above: Performed By: #### M G, CMP #### [facility] [address] [address] [address] Deepak Greenfield METAMYELOCYTE # Normal [facility] Comment on above: Performed By: #### M G, CMP #### [facility] [address] [address] [address] Deepak Greenfield METAMYELOCYTE % Normal [facility] Comment on above: Performed By: #### M G, CMP #### [facility] [address] [place] [address] Dr. Deepak Greenfield MONOM# 0.29 103/ul Critically low 0.30-0.80 [facility] Comment on above: Performed By: #### M G, CMP #### [facility] [address] [address] [address] Deepak Greenfield MONOM% 5.0 % Normal 1.7-12.0 [facility] Comment on above: Performed By: #### M G, CMP #### [facility] [address] [place] [address] Dr. Deepak Greenfield MPV 11.0 fL Normal 9.5-13.5 [facility] Comment on above: Performed By: #### M G, CMP #### [facility] [address] [place] [address] Dr. Deepak Greenfield MYELOCYTE # Normal [facility] Comment on above: Performed By: #### M G, CMP #### [facility] [address] [place] [address] Dr. Deepak Greenfield MYELOCYTE % Normal [facility] Comment on above: Performed By: #### M G, CMP #### [facility] [address] [place] [address] Dr. Deepak Greenfield NRBC Normal [facility] Comment on above: Performed By: #### M G, CMP #### [facility] [address] [place] [address] Dr. Deepak Greenfield PLT 208 103/ul Normal 150-450 [facility] Comment on above: Performed By: #### M G, CMP #### [facility] [address] [place] [address] Dr. Deepak Greenfield RBC 3.88 106/ul Critically low 4.70-6.10 [facility] Comment on above: Performed By: #### M G, CMP #### [facility] [address] [place] [address] Dr. Deepak Greenfield RDW 12.9 % Normal 11.0-15.0 [facility] Comment on above: Performed By: #### M G, CMP #### [facility] [address] [place] [address] Dr. Deepak Greenfield SEG # 3.13 103/ul Normal 1.40-6.50 [facility] Comment on above: Performed By: #### M G, CMP #### [facility] [address] [place] [address] Dr. Deepak Greenfield SEG % 54.0 % Normal 43.0-75.0 [facility] Comment on above: Performed By: #### M G, CMP #### [facility] [address] [place] [address] Dr. Deepak Greenfield STOMATOCYTES 3+ Normal [facility] Comment on above: Performed By: #### M G, CMP #### [facility] [address] [place] [address] Dr. Deepak Greenfield WBC 5.8 103/ul Normal 4.0-11.0 [facility] Comment on above: Performed By: #### M G, CMP #### [facility] [address] [place] [address] Dr. Deepak Greenfield PROF CHEM 8 (BAS METB)on Anion gap [Moles/Vol] 16.1 mmol/L Normal [facility] Comment on above: Performed By: #### B MP #### [facility] [address] [place] [address] Dr. Deepak Greenfield Calcium [Mass/Vol] 9.3 mg/dL Normal 8.5-10.1 [facility] Comment on above: Performed By: #### B MP #### [facility] [address] [place] [address] Dr. Deepak Greenfield Chloride [Moles/Vol] 105 mmol/L Normal 98-107 [facility] Comment on above: Performed By: #### B MP #### [facility] [address] [place] [address] Dr. Deepak Greenfield CO2 [Moles/Vol] 27.6 mmol/L Normal 21.0-32.0 [facility] Comment on above: Performed By: #### B MP #### [facility] [address] [address] [address] Deepak Greenfield Creatinine [Mass/Vol] 0.96 mg/dL Normal 0.70-1.30 [facility] Comment on above: Performed By: #### B MP #### [facility] [address] [address] [address] Deepak Greenfield EGFR-AF KAZAKH >60 Normal >=60 [facility] Comment on above: Performed By: #### B MP #### [facility] [address] [address] [address] Deepak Greenfield EGFR-NON AF KAZAKH >60 Normal >=60 [facility] Comment on above: Performed By: #### B MP #### [facility] [address] [address] [address] Deepak Greenfield Glucose [Mass/Vol] 160 mg/dL Critically high 74-106 T [facility] Comment on above: Performed By: #### B MP #### [facility] [address] [address] [address] Deepak Greenfield Potassium [Moles/Vol] 3.7 mmol/L Normal 3.5-5.1 [facility] Comment on above: Performed By: #### B MP #### [facility] [address] [address] [address] Deepak Greenfield Sodium [Moles/Vol] 145 mmol/L Normal 136-145 [facility] Comment on above: Performed By: #### B MP #### [facility] [address] [address] [address] Deepak Greenfield Urea nitrogen [Mass/Vol] 5.0 mg/dL Critically low 7.0-18.0 [facility] Comment on above: Performed By: #### B MP #### [facility] [address] [address] [address] Deepak Greenfield Urea nitrogen/Creatinine [Mass ratio] 5.2 mg/mg Normal [facility] Comment on above: Performed By: #### B MP #### [facility] [address] [place] [address] Dr. Deepak Greenfield AMMONIAon 07-31-2022 Ammonia (P) [Moles/Vol] 94 umol/L Critically high 11-32 [facility] Comment on above: Performed By: #### M G, CMP #### [facility] [address] [place] [address] Dr. Deepak Greenfield CBC AUTO DIFFon 07-31-2022 BASO # 0.0 103/ul Normal 0.0-0.1 [facility] Comment on above: Performed By: #### B MP #### [facility] [address] [place] [address] Dr. Deepak Greenfield Basophils/100 WBC (Bld) 0.1 % Critically low 0.2-2.0 [facility] Comment on above: Performed By: #### B MP #### [facility] [address] [place] [address] Dr. Deepak Greenfield EO # 0.0 103/ul Normal 0.0-0.7 [facility] Comment on above: Performed By: #### B MP #### [facility] [address] [place] [address] Dr. Deepak Greenfield Eosinophils/100 WBC (Bld) 0.0 % Critically low 0.9-7.0 [facility] Comment on above: Performed By: #### B MP #### [facility] [address] [place] [address] Dr. Deepak Greenfield Erythrocyte distribution width (RBC) [Ratio] 13.1 % Normal 11.0-15.0 [facility] Comment on above: Performed By: #### B MP #### [facility] [address] [place] [address] Dr. Deepak Greenfield Hematocrit (Bld) [Volume fraction] 32.4 % Critically low 42.0-54.0 [facility] Comment on above: Performed By: #### B MP #### [facility] [address] [place] [address] Dr. Deepak Greenfield Hemoglobin (Bld) [Mass/Vol] 10.9 g/dL Critically low 14.0-18.0 [facility] Comment on above: Performed By: #### B MP #### [facility] [address] [place] [address] Dr. Deepak Greenfield IG # 0.02 10e3/ul Normal 0.00-0.03 [facility] Comment on above: Performed By: #### B MP #### [facility] [address] [place] [address] Dr. Deepak Greenfield IG % 0.3 % Normal 0.0-0.5 [facility] Comment on above: Performed By: #### B MP #### [facility] [address] [place] [address] Dr. Deepak Greenfield LYMPH # 2.7 103/ul Normal 1.2-3.8 [facility] Comment on above: Performed By: #### B MP #### [facility] [address] [place] [address] Dr. Deepak Greenfield Lymphocytes/100 WBC (Bld) 38.9 % Normal 20.5-60.0 [facility] Comment on above: Performed By: #### B MP #### [facility] [address] [place] [address] Dr. Deepak Greenfield MANUAL DIFF REQ NO Normal [facility] Comment on above: Performed By: #### B MP #### [facility] [address] [place] [address] Dr. Deepak Greenfield MCH (RBC) [Entitic mass] 32.3 pg Normal 25.9-34.0 [facility] Comment on above: Performed By: #### B MP #### [facility] [address] [place] [address] Dr. Deepak Greenfield MCHC (RBC) [Mass/Vol] 33.6 g/dL Normal 29.9-35.2 [facility] Comment on above: Performed By: #### B MP #### [facility] [address] [place] [address] Dr. Deepak Greenfield MCV (RBC) [Entitic vol] 96.1 fL Critically high 80.0-94.0 [facility] Comment on above: Performed By: #### B MP #### [facility] [address] [address] [address] Deepak Greenfield MONO # 0.3 103/ul Normal 0.3-0.8 [facility] Comment on above: Performed By: #### B MP #### [facility] [address] [address] [address] Deepak Greenfield Monocytes/100 WBC (Bld) 4.9 % Normal 1.7-12.0 [facility] Comment on above: Performed By: #### B MP #### [facility] [address] [address] [address] Deepak Greenfield NEUT # 3.9 103/ul Normal 1.4-6.5 [facility] Comment on above: Performed By: #### B MP #### [facility] [address] [place] [address] Dr. Deepak Greenfield Neutrophils/100 WBC (Bld) 55.8 % Normal 43.0-75.0 [facility] Comment on above: Performed By: #### B MP #### [facility] [address] [address] [address] Deepak Greenfield Platelet mean volume (Bld) [Entitic vol] 9.7 fL Normal 9.5-13.5 [facility] Comment on above: Performed By: #### B MP #### [facility] [address] [address] [address] Deepak Greenfield PLT 296 103/ul Normal 150-450 [facility] Comment on above: Performed By: #### B MP #### [facility] [address] [address] [address] Deepak Greenfield RBC 3.37 106/ul Critically low 4.70-6.10 [facility] Comment on above: Performed By: #### B MP #### [facility] [address] [address] [address] Deepak Greenfield WBC 7.0 103/ul Normal 4.0-11.0 [facility] Comment on above: Performed By: #### B MP #### [facility] [address] [address] [address] Deepak Greenfield PROF CHEM 8 (BAS METB)on Anion gap [Moles/Vol] 14.9 mmol/L Normal [facility] Comment on above: Performed By: #### C BC #### [facility] [address] [place] [address] Dr. Deepak Greenfield Calcium [Mass/Vol] 8.8 mg/dL Normal 8.5-10.1 [facility] Comment on above: Performed By: #### C BC #### [facility] [address] [place] [address] Dr. Deepak Greenfield Chloride [Moles/Vol] 105 mmol/L Normal 98-107 [facility] Comment on above: Performed By: #### C BC #### [facility] [address] [place] [address] Dr. Deepak Greenfield CO2 [Moles/Vol] 26.4 mmol/L Normal 21.0-32.0 [facility] Comment on above: Performed By: #### C BC #### [facility] [address] [place] [address] Dr. Deepak Greenfield Creatinine [Mass/Vol] 0.70 mg/dL Normal 0.70-1.30 [facility] Comment on above: Performed By: #### C BC #### [facility] [address] [place] [address] Dr. Deepak Greenfield EGFR-AF KAZAKH >60 Normal >=60 [facility] Comment on above: Performed By: #### C BC #### [facility] [address] [place] [address] Dr. Deepak Greenfield EGFR-NON AF KAZAKH >60 Normal >=60 [facility] Comment on above: Performed By: #### C BC #### [facility] [address] [place] [address] Dr. Deepak Greenfield Glucose [Mass/Vol] 129 mg/dL Critically high 74-106 [facility] Comment on above: Performed By: #### C BC #### [facility] [address] [place] [address] Dr. Deepak Greenfield Potassium [Moles/Vol] 4.3 mmol/L Normal 3.5-5.1 [facility] Comment on above: Performed By: #### C BC #### [facility] [address] [place] [address] Dr. Deepak Greenfield Sodium [Moles/Vol] 142 mmol/L Normal 136-145 [facility] Comment on above: Performed By: #### C BC #### [facility] [address] [place] [address] Dr. Deepak Greenfield Urea nitrogen [Mass/Vol] 6.0 mg/dL Critically low 7.0-18.0 [facility] Comment on above: Performed By: #### C BC #### [facility] [address] [place] [address] Dr. Deepak Greenfield Urea nitrogen/Creatinine [Mass ratio] 8.6 mg/mg Normal [facility] Comment on above: Performed By: #### C BC #### [facility] [address] [place] [address] Dr. Deepak Greenfield AMMONIAon 07-30-2022 Ammonia (P) [Moles/Vol] 64 umol/L Critically high 11-32 [facility] Comment on above: Performed By: #### C BC #### [facility] [address] [place] [address] Dr. Deepak Greenfield CBC AUTO DIFFon 07-30-2022 BASO # 0.0 103/ul Normal 0.0-0.1 [facility] Comment on above: Performed By: #### I NFLUAB #### [facility] [address] [place] [address] Dr. Deepak Greenfield Basophils/100 WBC (Bld) 0.0 % Critically low 0.2-2.0 [facility] Comment on above: Performed By: #### I NFLUAB #### [facility] [address] [place] [address] Dr. Deepak Greenfield EO # 0.0 103/ul Normal 0.0-0.7 [facility] Comment on above: Performed By: #### I NFLUAB #### [facility] [address] [place] [address] Dr. Deepak Greenfield Eosinophils/100 WBC (Bld) 0.0 % Critically low 0.9-7.0 [facility] Comment on above: Performed By: #### I NFLUAB #### [facility] [address] [place] [address] Dr. Deepak Greenfield Erythrocyte distribution width (RBC) [Ratio] 13.1 % Normal 11.0-15.0 [facility] Comment on above: Performed By: #### I NFLUAB #### [facility] [address] [place] [address] Dr. Deepak Greenfield Hematocrit (Bld) [Volume fraction] 31.4 % Critically low 42.0-54.0 [facility] Comment on above: Performed By: #### I NFLUAB #### [facility] [address] [place] [address] Dr. Deepak Greenfield Hemoglobin (Bld) [Mass/Vol] 10.5 g/dL Critically low 14.0-18.0 [facility] Comment on above: Performed By: #### I NFLUAB #### [facility] [address] [place] [address] Dr. Deepak Greenfield IG # 0.01 10e3/ul Normal 0.00-0.03 [facility] Comment on above: Performed By: #### I NFLUAB #### [facility] [address] [place] [address] Dr. Deepak Greenfield IG % 0.2 % Normal 0.0-0.5 [facility] Comment on above: Performed By: #### I NFLUAB #### [facility] [address] [place] [address] Dr. Deepak Greenfield LYMPH # 1.5 103/ul Normal 1.2-3.8 [facility] Comment on above: Performed By: #### I NFLUAB #### [facility] [address] [place] [address] Dr. Deepak Greenfield Lymphocytes/100 WBC (Bld) 27.5 % Normal 20.5-60.0 [facility] Comment on above: Performed By: #### I NFLUAB #### [facility] [address] [place] [address] Dr. Deepak Greenfield MANUAL DIFF REQ NO Normal [facility] Comment on above: Performed By: #### I NFLUAB #### [facility] [address] [place] [address] Dr. Deepak Greenfield MCH (RBC) [Entitic mass] 32.4 pg Normal 25.9-34.0 [facility] Comment on above: Performed By: #### I NFLUAB #### [facility] [address] [place] [address] Dr. Deepak Greenfield MCHC (RBC) [Mass/Vol] 33.4 g/dL Normal 29.9-35.2 [facility] Comment on above: Performed By: #### I NFLUAB #### [facility] [address] [place] [address] Dr. Deepak Greenfield MCV (RBC) [Entitic vol] 96.9 fL Critically high 80.0-94.0 [facility] Comment on above: Performed By: #### I NFLUAB #### [facility] [address] [place] [address] Dr. Deepak Greenfield MONO # 0.2 103/ul Critically low 0.3-0.8 [facility] Comment on above: Performed By: #### I NFLUAB #### [facility] [address] [place] [address] Dr. Deepak Greenfield Monocytes/100 WBC (Bld) 2.9 % Normal 1.7-12.0 [facility] Comment on above: Performed By: #### I NFLUAB #### [facility] [address] [place] [address] Dr. Deepak Greenfield NEUT # 3.8 103/ul Normal 1.4-6.5 [facility] Comment on above: Performed By: #### I NFLUAB #### [facility] [address] [place] [address] Dr. Deepak Greenfield Neutrophils/100 WBC (Bld) 69.4 % Normal 43.0-75.0 [facility] Comment on above: Performed By: #### I NFLUAB #### [facility] [address] [address] [address] Deepak Greenfield Platelet mean volume (Bld) [Entitic vol] 9.4 fL Critically low 9.5-13.5 [facility] Comment on above: Performed By: #### I NFLUAB #### [facility] [address] [place] [address] Dr. Deepak Greenfield PLT 256 103/ul Normal 150-450 [facility] Comment on above: Performed By: #### I NFLUAB #### [facility] [address] [address] [address] Deepak Greenfield RBC 3.24 106/ul Critically low 4.70-6.10 [facility] Comment on above: Performed By: #### I NFLUAB #### [facility] [address] [place], [place] [id number] Dr. Deepak Greenfield WBC 5.5 103/ul Normal 4.0-11.0 [facility] Comment on above: Performed By: #### I NFLUAB #### [facility] [address] [place] [address] Dr. Deepak Greenfield Coding Summary.on 07-30-2022 Coding Summary. CD:[id number] W w+PGhlYWQ+WU4HTOZxK84 phWDfhP5qG0XABXmXUkxx RLMFAZzYTlAgjyUqMD8xu XNjZXJu IC8+CS8hVNTiJaxxxOKda 2B2pLW1T10lni8tUHzghC C6BQXqQzCfgcmaj7jnsEb 6IDcuNmluOyBt EQHbeR90WNY0lB33Aa67y ROyjRChm3vpjHb4GxEnKI BmPTB0yAuaNEvwj3TkJWB dL38okPNds7U8 JMXwoHsonXDfKtYesZI9d C5lULpqdnkht8wviimxSd p5xt37sBUkd0M5dLR1G8C xepE8PXVkqTKr SdplgPIMcQ1tacubg6qdd aooFiTvFVQlQFp8TZz9YX QmtUswAaSeKZ84NBA0BQV fiuNfI6JzCBSh gDqmKpL3a0S2Db9GP9QKI qhwT2KGIWFYTVxpcCO+PC 93ds56Z3AhBkqtFxj1UAA oQIU4eOI5jZ4s XWOhSNomo6E6nSB6V8Ldu jZuzl7wq3qhRBIcYKayL0 9cfOQgm3H4VIHneNH0IOM whOkfFvJeaE02 Oyc+MLErxZgbg7DqWienj 1kau9fiySb6QitkGZXhqw EpwAmgYEQ1y5AnHg7lMWQ yrNP3vIB8iG3k LnYvKiI4LWpsQ994ZsPfz KPrYxqrU56qM3ZuvAK+PH WbIum0IPUpsImfPJ6xG3H hZGRpbmctbGVm rNfyAY9qADWmypyjXUJgu H0sXPIuM2h6XdKzSrD1CN cqT9LaDONcdyqhZp17yL6 pEcRoYuV4ZJkw P7KlibV1NZJkpJOhFJfxJ GR9R38np8I6VOSaPQAwFH S9iLM8oI3vcOdmtyjxrTJ mdDsgdmVydGlj CAeeDQlvT478OWGsfTquL kNvZGluZyBEYXRlOiAgMD QvMTMvMjAyMzwvdGQ+PHR kWHF4xIxdNYIw vEDqYGvgKl5kxZuusGlmB U5qTGIhiuroIOZfeR7yCS PehIRxxWrqDB6jJWHptyj ri892CpObTLW4 TQItmOTnF8WoqG3jCzJnX ILpNUDvD9NygBPxKOvwX9 15KJonCmI2KCCtliEmP1J sLWFsaWduOiB0 m9I5Jw7Fo4DpycpzC3Cqd RQnEuGuIeqeTDz8D3CdNl wvdHI+WU08ELOzTS74XOc 1YVP1dXbpEOuy WQJpP4QtaF8iDhGnIAMeF GRkOyc+PHRhYmxlIHdpZH RoPScxMDAlJyBzdHlsZT0 cVd3bRMYiXLXn tLngjDNlQbImt7jrOMIfX UkzYW8twSytL5ShcSK2VR Rnl7c2Up67R03hA0OgrBL +ELIrsBC9qQT8 mH6cPgUdPgR3MLxtI050Q dDonJDtOgdxf0byr8pnsL r4XfS6NKJoieNmaLvaDSO 3f3KrLz33Y72f IHdpZHRoPSIxNSUiIHZhb Udtgy2rcQ3yHr8+PGNvbC L5rVF7tC5fIsJqQuD8GFy gS929AiTvnAGn Naxdi4yst1egzUz7WsFyF JYtjyUciNbnCSC0t2HoMa 39Z8UulMvrt5ClBji6bq3 9jFHze4H9sIY1 P8MiAFRwwgzauERwfJmeZ Z3jUZYonzdxDKSaiJ5hZT RtJ7a0JiYtEtG2EAngN9I pgeX6IZPvsGVd VKCgzSGJoU9lpipbf2gzq nqtPdOnZSAeEJo1MFb2LS DrrUrgBiPlEFY9FqL7TAF 3vCRjrU8yzWhn vwrnhW8bCbx+PRW1lEEcn FZVUF2hSaotpJF+PHRkIH O8aVaoIWlcEKGoxH1mFOB dM4g2ZyXrKrJ5 CXvpR1OlwaG4AVLvdDVuQ BXcuMGHlW0smofvm8kxxv ojJkNoVXOkUKn0XJn4XYG saWduOiBsZWZ0 EvY2EBT9iGMnhO6wbRpjm aupjU2tEyr+QmlydGggRG Q2ENf2H7GhRxe2ZGTkiOz aEG4faCLmMEif Ff3ngJvwnAnjCB8uCNXcj gooh078KxQwc2ygGVUwsT LyGQtmGAZ0F96ud2G4LIY mGYAcNFD3zFY4 eN8doVjgolxtlVPrkVmtd pBveKrqOYkmIXnoX945SH NkvMhoLwZaBQk7S8TaSon 5MEXmxRqcNB5p vKTpWTelFk9mwWoimKopG X2hHWNltulaf077WgXqy1 xlIWYahROjRYcmWNE5N63 ux4N2VFHyLNEa HSF0dMD7fK8toPnxakfpv GVmdDsgdmVydGljYWwtYW faO067NBNnpCfyOvDisWy 0E3HoZvb1IAAf lLzxJJ1ezTNxVMliUz5to MhhmUktTU2kLINspcqyn9 16YeBox9siBCIhdLFsZNc sFRQ6I34gj2L2 UCXhZLLzQFD7nGB1zK2js GlnbjogbGVmdDsgdmVydG rsOYonAMkbH519SGNsnKt nPlBhdGllbnQg XDyxNXs8I1UyHidcqDL+P P92EYCwXZ49sKMkdEAhg9 fgqFx9BtFwMYQbHDD8oPf uXIgpg1IfLAFu L71wwTKfq6D8CGBipIikt HQwXcCvkZM6bH1yHNwvwf biw2vsfwxfDizid9llwx7 0oC22B68iSLvb ZHRoPSIzMCUiIHZhbGlnb c1pyK4uKw6+XUIqfKP0eL C2yR3tMGGtKgM7GMiuS79 9InRvcCIvPjxj u8bdj5psfWn3YlV2MKSsj fUjjDnrDDN3t2RjBy62U6 9sIHdpZHRoPSIyMCUiIHZ kuZyuvy4jtI5n Ii8+WMBcyYT1bMT2eD1vD vUmOiA2XEmdU448XjSajY BlBooeE31yU0SeqTR+PHR lMiy0KHHmkToi ZM1paUHcDHrnPx5tRST7F vSyTxFrWNrxY4JyHRYyqp bhblfudQT1PBBsEFDqsK5 7Gp7cvRanEIYu oREEzZ1gcwugh6erxukzM hGsYDVlSFf7RHe7BDFioE hxGqByVOZ9HmY5ECX1qUF cuS5viTzvpycg oR7bM8DhIAUoxojlEv41l Y8wNmLsElS8EXvtOmu+U0 0ODWPMUWVKBGSLPiSDUU6 5XQ76zSGgd7S5 nPX1A7RiWVWnqafmyhalm TW2FTKsBBUnnO25zTGfWA wfIj2no2G1q570NENdBBL epV49Yp2bgZns VLEkqEHTcH7njoeqa1itk pusYhVaDWYtWHu1CRj4TJ CebAcvKzOkCVX7GpA9CYJ 2yGCdwR7ryUgb dyrhnB7gKsy+MTAvMTYvM No3KMrbmZI+ODGyKEP5lS qdGCkjWPZlbG3rWBBkC0s 3EfTmGoF4TYjf A1BaQIVqoqhxAm49yL2iA pTeUoO4BHiwQ7ClsdU3SI YhwMDyWPgkVRF9S83vv9G 6GBSxPGUrSDN1 tNU4wL9mrDknglbhgVHzr DsgdmVydGljYWwtYWxpZ2 46IHRvcDsnPjQyIFllYXJ gRN11AK86eYOn e0Q1jME9N3QxKGWxchjqv bofoZI4TGDiEVDabN00sY WpVTasZk1ib0B9j608LRN lOFOcbW36Zy3v kSwaQRIoaQOOrC0kgrxxe 1qkmsowCfIuNGWzNDl2PU y3QBRnvIrsDfQvQMK8RrY 6IZJ4tQRfmH8a dChtbaphnC8qXik+TWFsZ TwvdGQ+VAEoACN5sZweWX siYIXitG8eSSRnD1j4McD mNwL4GIwsR1Gm IRZouvwhRy50dO3mGoNvJ pS7XHkrU1PsjdA0CSNkiX JhJSonFGQ5F76hz1D8RUD wQMFgVOK4wAU5 iL6klHslfjhcaMYskLxxw cTkzMxhMQhcBNeoF921MZ BwuNpsZz59oXZslBibbtO 7Y2AtKykxlAR+ PO59WSOdAR92kRWesTWqj 6ljeGe0CbLeOUOlUKY1eF azLLvmh1YyFQApW13oaVC vr1C4FEJzbOkj uBBeOzKxqAQ8yC7kUAjsp swcm7habzkkBvqrw2zddm 92rB77N29eCNgyQNMcXJY zMCUiIHZhbGln nr6fpE9gDe1+OGMlfXI0n IZ0bE5sZgRfAmN9NDzpC5 42GfTdjRZiIetlw2jnq7a qgNg7VmAeQXWg srIiiRbtROV4q5YyJp88Z 29sIHdpZHRoPSIyMCUiIH HmbSdbtr5dnD0gPn9+PC9 fd5astl95zN19 dHI+NRQyDNR4lNilQAavV USxsW5bYDyuYuJ0QAKmVa TiwQ65dROaRVpoBn1iwLk vjYkyYG9dNAMw kwkpe784CeZpd8ruHYXmc RHtUQcrWAY7Q39za9X2JL HrRYQzKTV0jDU0tE2tgJg nbjogbGVmdDsg vvKwlAflSKnhIHgiW319J TJggLpzFcDreQSrZ3fhrw HQJB0aOeeguOW+PHRkIHN 0eWxlPSdwYWRk zN0bQTMuM9v9PmEpBwG0G ZysZ6ZmykH0FMMdvOKyWK LioVAWgO2kzlfwv3fyubq gIzAwMDAwMDt0 UDx4AIIncGbeEtXkAIT9A dX6IGD1kQZfuA5gnGomrf cizM0hXne+RklOOjwvdGQ +DGOpHPS8iWde LUxrPSJalG7sHIZcH1h4S vXzCnU8CXezN7ShjdA7DG FecJHdKHFawLZDuK4vbhh lf0thsdepNsGy WJQcYRj1VQe8OPDrcIltK oIuWRD5MfI1CSD0lKOjhD 3lmYjvldsloW5oAmd+TVJ OOjwvdGQ+PHRk NXG1eThnHAtoRLJstC5lT GXnR2r5GlCmSjD1UEwcR7 HekuI3PYBxmCZuZWFbuWJ XbW5aeiawy9xe hgvtMlRjPRPbNZt7XNr2I ADaoPgwOoMjKGP0AlC6HI B4xKYkaF0kwAowuzckfA7 wOyc+XXL8RUE1 YY95CV00Y0JzCbaavFLpc +PHRhYmxlIHdpZHRoPS jfJQMuBhYgxGjxVS3hJj8 yZGVyLWNvbGxh cHNlOiBj (more content not included)... Normal [facility] PROF CHEM 8 (BAS METB)on Anion gap [Moles/Vol] 8.3 mmol/L Normal [facility] Comment on above: Performed By: #### I NFLUAB #### [facility] [address] [place] [address] Dr. Deepak Greenfield Calcium [Mass/Vol] 8.5 mg/dL Normal 8.5-10.1 [facility] Comment on above: Performed By: #### I NFLUAB #### [facility] [address] [address] [address] Deepak Greenfield Chloride [Moles/Vol] 104 mmol/L Normal 98-107 [facility] Comment on above: Performed By: #### I NFLUAB #### [facility] [address] [address] [address] Deepak Greenfield CO2 [Moles/Vol] 30.0 mmol/L Normal 21.0-32.0 [facility] Comment on above: Performed By: #### I NFLUAB #### [facility] [address] [address] [address] Deepak Greenfield Creatinine [Mass/Vol] 0.46 mg/dL Critically low 0.70-1.30 [facility] Comment on above: Performed By: #### I NFLUAB #### [facility] [address] [place] [address] Dr. Deepak Greenfield EGFR-AF KAZAKH >60 Normal >=60 [facility] Comment on above: Performed By: #### I NFLUAB #### [facility] [address] [place] [address] Dr. Deepak Greenfield EGFR-NON AF KAZAKH >60 Normal >=60 [facility] Comment on above: Performed By: #### I NFLUAB #### [facility] [address] [address] [address] Deepak Greenfield Glucose [Mass/Vol] 152 mg/dL Critically high 74-106 [facility] Comment on above: Performed By: #### I NFLUAB #### [facility] [address] [address] [address] Deepak Greenfield Potassium [Moles/Vol] 4.3 mmol/L Normal 3.5-5.1 [facility] Comment on above: Performed By: #### I NFLUAB #### [facility] [address] [place] [address] Dr. Deepak Greenfield Sodium [Moles/Vol] 138 mmol/L Normal 136-145 [facility] Comment on above: Performed By: #### I NFLUAB #### [facility] [address] [place] [address] Dr. Deepak Greenfield Urea nitrogen [Mass/Vol] 9.0 mg/dL Normal 7.0-18.0 [facility] Comment on above: Performed By: #### I NFLUAB #### [facility] [address] [place] [address] Dr. Deepak Greenfield Urea nitrogen/Creatinine [Mass ratio] 19.6 mg/mg Normal [facility] Comment on above: Performed By: #### I NFLUAB #### [facility] [address] [place] [address] Dr. Deepak Greenfield AMMONIAon 07-29-2022 Ammonia (P) [Moles/Vol] 69 umol/L Critically high -32 [facility] Comment on above: Performed By: #### A MM #### [facility] [address] [place] [address] Dr. Deepak Greenfield CBC AUTO DIFFon 07-29-2022 BASO # 0.0 103/ul Normal 0.0-0.1 [facility] Comment on above: Performed By: #### M G, CMP #### [facility] [address] [place] [address] Dr. Deepak Greenfield Basophils/100 WBC (Bld) 0.2 % Normal 0.2-2.0 [facility] Comment on above: Performed By: #### M G, CMP #### [facility] [address] [place] [address] Dr. Deepak Greenfield EO # 0.0 103/ul Normal 0.0-0.7 [facility] Comment on above: Performed By: #### M G, CMP #### [facility] [address] [place] [address] Dr. Deepak Greenfield Eosinophils/100 WBC (Bld) 0.0 % Critically low 0.9-7.0 [facility] Comment on above: Performed By: #### M G, CMP #### [facility] [address] [place] [address] Dr. Deepak Greenfield Erythrocyte distribution width (RBC) [Ratio] 13.2 % Normal 11.0-15.0 [facility] Comment on above: Performed By: #### M G, CMP #### [facility] [address] [place] [address] Dr. Deepak Greenfield Hematocrit (Bld) [Volume fraction] 33.1 % Critically low 42.0-54.0 [facility] Comment on above: Performed By: #### M G, CMP #### [facility] [address] [place] [address] Dr. Deepak Greenfield Hemoglobin (Bld) [Mass/Vol] 10.8 g/dL Critically low 14.0-18.0 [facility] Comment on above: Performed By: #### M G, CMP #### [facility] [address] [place] [address] Dr. Deepak Greenfield IG # 0.04 10e3/ul Critically high 0.00-0.03 [facility] Comment on above: Performed By: #### M G, CMP #### [facility] [address] [place] [address] Dr. Deepak Greenfield IG % 0.5 % Normal 0.0-0.5 [facility] Comment on above: Performed By: #### M G, CMP #### [facility] [address] [place] [address] Dr. Deepak Greenfield LYMPH # 1.1 103/ul Critically low 1.2-3.8 [facility] Comment on above: Performed By: #### M G, CMP #### [facility] [address] [place] [address] Dr. Deepak Greenfield Lymphocytes/100 WBC (Bld) 13.6 % Critically low 20.5-60.0 [facility] Comment on above: Performed By: #### M G, CMP #### [facility] [address] [place] [address] Dr. Deepak Greenfield MANUAL DIFF REQ NO Normal [facility] Comment on above: Performed By: #### M G, CMP #### [facility] [address] [place] [address] Dr. Deepak Greenfield MCH (RBC) [Entitic mass] 32.2 pg Normal 25.9-34.0 [facility] Comment on above: Performed By: #### M G, CMP #### [facility] [address] [place] [address] Dr. Deepak Greenfield MCHC (RBC) [Mass/Vol] 32.6 g/dL Normal 29.9-35.2 [facility] Comment on above: Performed By: #### M G, CMP #### [facility] [address] [place] [address] Dr. Deepak Greenfield MCV (RBC) [Entitic vol] 98.8 fL Critically high 80.0-94.0 [facility] Comment on above: Performed By: #### M G, CMP #### [facility] [address] [place] [address] Dr. Deepak Greenfield MONO # 0.3 103/ul Normal 0.3-0.8 [facility] Comment on above: Performed By: #### M G, CMP #### [facility] [address] [place] [address] Dr. Deepak Greenfield Monocytes/100 WBC (Bld) 3.8 % Normal 1.7-12.0 [facility] Comment on above: Performed By: #### M G, CMP #### [facility] [address] [place] [address] Dr. Deepak Greenfield NEUT # 6.7 103/ul Critically high 1.4-6.5 [facility] Comment on above: Performed By: #### M G, CMP #### [facility] [address] [place] [address] Dr. Deepak Greenfield Neutrophils/100 WBC (Bld) 81.9 % Critically high 43.0-75.0 [facility] Comment on above: Performed By: #### M G, CMP #### [facility] [address] [place] [address] Dr. Deepak Greenfield Platelet mean volume (Bld) [Entitic vol] 9.6 fL Normal 9.5-13.5 [facility] Comment on above: Performed By: #### M G, CMP #### [facility] [address] [address] [address] Deepak Greenfield PLT 257 103/ul Normal 150-450 [facility] Comment on above: Performed By: #### M G, CMP #### [facility] [address] [address] [address] Deepak Greenfield RBC 3.35 106/ul Critically low 4.70-6.10 [facility] Comment on above: Performed By: #### M G, CMP #### [facility] [address] [address] [address] Deepak Greenfield WBC 8.2 103/ul Normal 4.0-11.0 [facility] Comment on above: Performed By: #### M G, CMP #### [facility] [address] [place] [address] Dr. Deepak Greenfield LACTATE/LACTIC ACIDon 2022 Lactate [Moles/Vol] 1.1 mmol/L Normal 0.4-2.0 [facility] Comment on above: Performed By: #### I NFLUAB #### [facility] [address] [place] [address] Dr. Deepak Greenfield PROF CHEM 8 (BAS METB)on Anion gap [Moles/Vol] 9.4 mmol/L Normal [facility] Comment on above: Performed By: #### I NFLUAB #### [facility] [address] [place] [address] Dr. Deepak Greenfield Calcium [Mass/Vol] 8.0 mg/dL Critically low 8.5-10.1 [facility] Comment on above: Performed By: #### I NFLUAB #### [facility] [address] [place] [address] Dr. Deepak Greenfield Chloride [Moles/Vol] 105 mmol/L Normal 98-107 [facility] Comment on above: Performed By: #### I NFLUAB #### [facility] [address] [place] [address] Dr. Deepak Greenfield CO2 [Moles/Vol] 30.7 mmol/L Normal 21.0-32.0 [facility] Comment on above: Performed By: #### I NFLUAB #### [facility] [address] [address] [address] Deepak Greenfield Creatinine [Mass/Vol] 0.66 mg/dL Critically low 0.70-1.30 [facility] Comment on above: Performed By: #### I NFLUAB #### [facility] [address] [address] [address] Deepak Greenfield EGFR-AF KAZAKH >60 Normal >=60 [facility] Comment on above: Performed By: #### I NFLUAB #### [facility] [address] [address] [address] Deepak Greenfield EGFR-NON AF KAZAKH >60 Normal >=60 [facility] Comment on above: Performed By: #### I NFLUAB #### [facility] [address] [place] [address] Dr. Deepak Greenfield Glucose [Mass/Vol] 177 mg/dL Critically high 74-106 [facility] Comment on above: Performed By: #### I NFLUAB #### [facility] [address] [address] [address] Deepak Greenfield Potassium [Moles/Vol] 4.1 mmol/L Normal 3.5-5.1 [facility] Comment on above: Performed By: #### I NFLUAB #### [facility] [address] [address] [address] Deepak Greenfield Sodium [Moles/Vol] 141 mmol/L Normal 136-145 [facility] Comment on above: Performed By: #### I NFLUAB #### [facility] [address] [address] [address] Deepak Greenfield Urea nitrogen [Mass/Vol] 9.0 mg/dL Normal 7.0-18.0 [facility] Comment on above: Performed By: #### I NFLUAB #### [facility] [address] [address] [address] Deepak Greenfield Urea nitrogen/Creatinine [Mass ratio] 13.6 mg/mg Normal [facility] Comment on above: Performed By: #### I NFLUAB #### [facility] [address] [place] [address] Dr. Deepak Greenfield AMMONIAon 07-28-2022 Ammonia (P) [Moles/Vol] 68 umol/L Critically high -32 [facility] Comment on above: Performed By: #### B MP #### [facility] [address] [place] [address] Dr. Deepak Greenfield CBC AUTO DIFFon 07-28-2022 BASO # 0.0 103/ul Normal 0.0-0.1 [facility] Comment on above: Performed By: #### C BC #### [facility] [address] [place] [address] Dr. Deepak Greenfield Basophils/100 WBC (Bld) 0.3 % Normal 0.2-2.0 [facility] Comment on above: Performed By: #### C BC #### [facility] [address] [place] [address] Dr. Deepak Greenfield EO # 0.0 103/ul Normal 0.0-0.7 [facility] Comment on above: Performed By: #### C BC #### [facility] [address] [place] [address] Dr. Deepak Greenfield Eosinophils/100 WBC (Bld) 0.0 % Critically low 0.9-7.0 [facility] Comment on above: Performed By: #### C BC #### [facility] [address] [place] [address] Dr. Deepak Greenfield Erythrocyte distribution width (RBC) [Ratio] 13.3 % Normal 11.0-15.0 [facility] Comment on above: Performed By: #### C BC #### [facility] [address] [place] [address] Dr. Deepak Greenfield Hematocrit (Bld) [Volume fraction] 37.0 % Critically low 42.0-54.0 [facility] Comment on above: Performed By: #### C BC #### [facility] [address] [place] [address] Dr. Deepak Greenfield Hemoglobin (Bld) [Mass/Vol] 12.3 g/dL Critically low 14.0-18.0 [facility] Comment on above: Performed By: #### C BC #### [facility] [address] [place] [address] Dr. Deepak Greenfield IG # 0.06 10e3/ul Critically high 0.00-0.03 [facility] Comment on above: Performed By: #### C BC #### [facility] [address] [place] [address] Dr. Deepak Greenfield IG % 0.5 % Normal 0.0-0.5 [facility] Comment on above: Performed By: #### C BC #### [facility] [address] [place] [address] Dr. Deepak Greenfield LYMPH # 2.9 103/ul Normal 1.2-3.8 [facility] Comment on above: Performed By: #### C BC #### [facility] [address] [place] [address] Dr. Deepak Greenfield Lymphocytes/100 WBC (Bld) 23.5 % Normal 20.5-60.0 [facility] Comment on above: Performed By: #### C BC #### [facility] [address] [place] [address] Dr. Deepak Greenfield MANUAL DIFF REQ NO Normal [facility] Comment on above: Performed By: #### C BC #### [facility] [address] [place] [address] Dr. Deepak Greenfield MCH (RBC) [Entitic mass] 32.4 pg Normal 25.9-34.0 [facility] Comment on above: Performed By: #### C BC #### [facility] [address] [place] [address] Dr. Deepak Greenfield MCHC (RBC) [Mass/Vol] 33.2 g/dL Normal 29.9-35.2 [facility] Comment on above: Performed By: #### C BC #### [facility] [address] [place] [address] Dr. Deepak Greenfield MCV (RBC) [Entitic vol] 97.4 fL Critically high 80.0-94.0 [facility] Comment on above: Performed By: #### C BC #### [facility] [address] [place] [address] Dr. Deepak Greenfield MONO # 1.0 103/ul Critically high 0.3-0.8 [facility] Comment on above: Performed By: #### C BC #### [facility] [address] [place] [address] Dr. Deepak Greenfield Monocytes/100 WBC (Bld) 8.0 % Normal 1.7-12.0 [facility] Comment on above: Performed By: #### C BC #### [facility] [address] [place] [address] Dr. Deepak Greenfield NEUT # 8.3 103/ul Critically high 1.4-6.5 [facility] Comment on above: Performed By: #### C BC #### [facility] [address] [place] [address] Dr. Deepak Greenfield Neutrophils/100 WBC (Bld) 67.7 % Normal 43.0-75.0 [facility] Comment on above: Performed By: #### C BC #### [facility] [address] [place] [address] Dr. Deepak Greenfield Platelet mean volume (Bld) [Entitic vol] 9.7 fL Normal 9.5-13.5 [facility] Comment on above: Performed By: #### C BC #### [facility] [address] [place] [address] Dr. Deepak Greenfield PLT 325 103/ul Normal 150-450 [facility] Comment on above: Performed By: #### C BC #### [facility] [address] [place], [place] [id number] Dr. Deepak Greenfield RBC 3.80 106/ul Critically low 4.70-6.10 [facility] Comment on above: Performed By: #### C BC #### [facility] [address] [place] [address] Dr. Deepak Greenfield WBC 12.2 103/ul Critically high 4.0-11.0 [facility] Comment on above: Performed By: #### C BC #### [facility] [address] [place] [address] Dr. Deepak Greenfield CULTURE BLOODon 07-28-2022 Microscopic examination of blood, culture Culture Observations: NO GROWTH AT 5 DAYS. Normal [facility] Comment on above: Performed By: #### B [id number] #### [facility] [address] [place] [address] Dr. Deepak Greenfield Microscopic examination of blood, culture Culture Observations: NO GROWTH AT 5 DAYS. Normal [facility] Comment on above: Performed By: #### C BC #### [facility] [address] [place] [address] Dr. Deepak Greenfield LACTATE/LACTIC ACIDon 2022 Lactate [Moles/Vol] 2.5 mmol/L Critically high 0.4-2.0 [facility] Comment on above: Performed By: #### C VDTBH #### [facility] [address] [place] [address] Dr. Deepak Greenfield PROF 14(COMP METB)on 023 Albumin [Mass/Vol] 3.1 g/dL Critically low 3.4-5.0 [facility] Comment on above: Performed By: #### C BC #### [facility] [address] [place] [address] Dr. Deepak Greenfield Albumin/Globulin [Mass ratio] 0.7 {ratio} Normal [facility] Comment on above: Performed By: #### C BC #### [facility] [address] [place] [address] Dr. Deepak Greenfield ALP [Catalytic activity/Vol] 51 U/L Normal 46-116 [facility] Comment on above: Performed By: #### C BC #### [facility] [address] [place] [address] Dr. Deepak Greenfield ALT [Catalytic activity/Vol] 106 U/L Critically high 16-63 [facility] Comment on above: Performed By: #### C BC #### [facility] [address] [place] [address] Dr. Deepak Greenfield Anion gap [Moles/Vol] 14.2 mmol/L Normal [facility] Comment on above: Performed By: #### C BC #### [facility] [address] [place] [address] Dr. Deepak Greenfield AST [Catalytic activity/Vol] 81 U/L Critically high 15-37 [facility] Comment on above: Performed By: #### C BC #### [facility] [address] [address] [address] Deepak Greenfield Bilirubin [Mass/Vol] 0.4 mg/dL Normal 0.2-1.0 [facility] Comment on above: Performed By: #### C BC #### [facility] [address] [place] [address] Dr. Deepak Greenfield Calcium [Mass/Vol] 8.9 mg/dL Normal 8.5-10.1 [facility] Comment on above: Performed By: #### C BC #### [facility] [address] [place] [address] Dr. Deepak Greenfield Chloride [Moles/Vol] 105 mmol/L Normal 98-107 [facility] Comment on above: Performed By: #### C BC #### [facility] [address] [place] [address] Dr. Deepak Greenfield CO2 [Moles/Vol] 27.9 mmol/L Normal 21.0-32.0 [facility] Comment on above: Performed By: #### C BC #### [facility] [address] [place] [address] Dr. Deepak Greenfield Creatinine [Mass/Vol] 0.77 mg/dL Normal 0.70-1.30 [facility] Comment on above: Performed By: #### C BC #### [facility] [address] [place] [address] Dr. Deepak Greenfield EGFR-AF KAZAKH >60 Normal >=60 [facility] Comment on above: Performed By: #### C BC #### [facility] [address] [place] [address] Dr. Deepak Greenfield EGFR-NON AF KAZAKH >60 Normal >=60 [facility] Comment on above: Performed By: #### C BC #### [facility] [address] [address] [address] Deepak Greenfield Globulin (S) [Mass/Vol] 4.3 g/dL Normal [facility] Comment on above: Performed By: #### C BC #### [facility] [address] [address] [address] Deepak Greenfield Glucose [Mass/Vol] 162 mg/dL Critically high 74-106 T [facility] Comment on above: Performed By: #### C BC #### [facility] [address] [place] [address] Dr. Deepak Greenfield Potassium [Moles/Vol] 4.1 mmol/L Normal 3.5-5.1 [facility] Comment on above: Performed By: #### C BC #### [facility] [address] [place] [address] Dr. Deepak Greenfield Protein [Mass/Vol] 7.4 g/dL Normal 6.4-8.2 [facility] Comment on above: Performed By: #### C BC #### [facility] [address] [place] [address] Dr. Deepak Greenfield Sodium [Moles/Vol] 143 mmol/L Normal 136-145 [facility] Comment on above: Performed By: #### C BC #### [facility] [address] [place] [address] Dr. Deepak Greenfield Urea nitrogen [Mass/Vol] 12.0 mg/dL Normal 7.0-18.0 [facility] Comment on above: Performed By: #### C BC #### [facility] [address] [place] [address] Dr. Deepak Greenfield Urea nitrogen/Creatinine [Mass ratio] 15.6 mg/mg Normal [facility] Comment on above: Performed By: #### C BC #### [facility] [address] [place] [address] Dr. Deepak Greenfield RESPIRATORY PANEL PLUSon Adenovirus Not detected Normal NOT DETECTED [facility] Comment on above: Performed By: #### B MP #### [facility] [address] [place] [address] Dr. Deepak Ocampo Parapertusis Not detected Normal NOT DETECTED [facility] Comment on above: Performed By: #### B MP #### [facility] [address] [place] [address] Dr. Deepak Ocampo Pertussis Not detected Normal NOT DETECTED [facility] Comment on above: Performed By: #### B MP #### [facility] [address] [address] [address] Deepak Greenfield Chlamydia Pneumoniae Not detected Normal NOT DETECTED [facility] Comment on above: Performed By: #### B MP #### [facility] [address] [place] [address] Dr. Deepak Greenfield Coronavirus 229E Not detected Normal NOT DETECTED [facility] Comment on above: Performed By: #### B MP #### [facility] [address] [place] [address] Dr. Deepak Greenfield Coronavirus HKU1 Not detected Normal NOT DETECTED [facility] Comment on above: Performed By: #### B MP #### [facility] [address] [place] [address] Dr. Deepak Greenfield Coronavirus NL63 Not detected Normal NOT DETECTED [facility] Comment on above: Performed By: #### B MP #### [facility] [address] [place] [address] Dr. Deepak Greenfield Coronavirus OC43 Not detected Normal NOT DETECTED [facility] Comment on above: Performed By: #### B MP #### [facility] [address] [place] [address] Dr. Deepak Greenfield Influenza A H1 Not detected Normal NOT DETECTED [facility] Comment on above: Performed By: #### B MP #### [facility] [address] [place] [address] Dr. Deepak Greenfield Influenza A H1 2009 Not detected Normal NOT DETECTED [facility] Comment on above: Performed By: #### B MP #### [facility] [address] [place] [address] Dr. Deepak Greenfield Influenza A H3 Not detected Normal NOT DETECTED [facility] Comment on above: Performed By: #### B MP #### [facility] [address] [address] [address] Deepak Greenfield Influenza B Not detected Normal NOT DETECTED [facility] Comment on above: Performed By: #### B MP #### [facility] [address] [place] [address] Dr. Deepak Greenfield Metapneumovirus Detected Abnormal NOT DETECTED [facility] Comment on above: Performed By: #### B MP #### [facility] [address] [address] [address] Deepak Greenfield Mycoplas. Pneumoniae Not detected Normal NOT DETECTED [facility] Comment on above: Performed By: #### B MP #### [facility] [address] [place] [address] Dr. Deepak Greenfield Parainfluenza 1 Not detected Normal NOT DETECTED [facility] Comment on above: Performed By: #### B MP #### [facility] [address] [place] [address] Dr. Deepak Greenfield Parainfluenza 2 Not detected Normal NOT DETECTED [facility] Comment on above: Performed By: #### B MP #### [facility] [address] [place] [address] Dr. Deepak Greenfield Parainfluenza 3 Not detected Normal NOT DETECTED [facility] Comment on above: Performed By: #### B MP #### [facility] [address] [place] [address] Dr. Deepak Greenfield Parainfluenza 4 Not detected Normal NOT DETECTED [facility] Comment on above: Performed By: #### B MP #### [facility] [address] [address] [address] Deepak Greenfield Rhino/Enterovirus Not detected Normal NOT DETECTED [facility] Comment on above: Performed By: #### B MP #### [facility] [address] [place] [address] Dr. Deepak Greenfield RP2 Header 1 RESPIRATORY PANEL: VIRUSES Normal [facility] Comment on above: Performed By: #### B MP #### [facility] [address] [address] [address] Deepak Greenfield RP2 Header 2 RESPIRATORY PANEL: BACTERIA Normal [facility] Comment on above: Performed By: #### B MP #### [facility] [address] [place] [address] Dr. Deepak Greenfield RSV Not detected Normal NOT DETECTED [facility] Comment on above: Performed By: #### B MP #### [facility] [address] [address] [address] Deepak Greenfield SARS-CoV-2 (COVID-19) RNA CINDY+probe Ql (Unsp spec) Not detected Normal NOT DETECTED [facility] Comment on above: Performed By: #### B MP #### [facility] [address] [place] [address] Dr. Deepak Greenfield XR CHEST 1 Von [...] Akua PEREZ Date: 2022-07-28 20:23 Normal [facility] AMMONIAon 07-27-2022 Ammonia (P) [Moles/Vol] 76 umol/L Critically high [facility] Comment on above: Performed By: #### M G, CMP #### [facility] [address] [place] [address] Dr. Deepak Greenfield CBC W MANUAL DIFFon 07-28-19 23 ATYPICAL LYMPH # Normal [facility] Comment on above: Performed By: #### M G, CMP #### [facility] [address] [address] [address] Deepak Greenfield ATYPICAL LYMPH % Normal [facility] Comment on above: Performed By: #### M G, CMP #### [facility] [address] [address] [address] Deepak Greenfield BAND # 0.4 103/ul Critically high 0.0-0.3 [facility] Comment on above: Performed By: #### M G, CMP #### [facility] [address] [address] [address] Deepak Greenfield BAND % 4 % Normal 0-5 [facility] Comment on above: Performed By: #### M G, CMP #### [facility] [address] [place] [address] Dr. Deepak Greenfield BASOM # 0.00 103/ul Normal 0.00-0.10 [facility] Comment on above: Performed By: #### M G, CMP #### [facility] [address] [place] [address] Dr. Deepak Greenfield BASOM % 0.0 % Critically low 0.2-2.0 [facility] Comment on above: Performed By: #### M G, CMP #### [facility] [address] [place] [address] Dr. Deepak Greenfield BLAST # Normal [facility] Comment on above: Performed By: #### M G, CMP #### [facility] [address] [place] [address] Dr. Deepak Greenfield BLAST % Normal [facility] Comment on above: Performed By: #### M G, CMP #### [facility] [address] [place] [address] Dr. Deepak Greenfield CORRECTED WBC Normal 4.0-11.0 [facility] Comment on above: Performed By: #### M G, CMP #### [facility] [address] [place] [address] Dr. Deepak Greenfield EOS # 0.00 103/ul Normal 0.00-0.70 [facility] Comment on above: Performed By: #### M G, CMP #### [facility] [address] [address] [address] Deepak Greenfield EOS% 0.0 % Critically low 0.9-7.0 [facility] Comment on above: Performed By: #### M G, CMP #### [facility] [address] [address] [address] Deepak Greenfield HCT 29.6 % Critically low 42.0-54.0 [facility] Comment on above: Performed By: #### M G, CMP #### [facility] [address] [address] [address] Deepak Greenfield HGB 10.4 g/dl Critically low 14.0-18.0 [facility] Comment on above: Performed By: #### M G, CMP #### [facility] [address] [address] [address] Deepak Greenfield LYMPHM # 0.71 103/ul Critically low 1.20-3.80 [facility] Comment on above: Performed By: #### M G, CMP #### [facility] [address] [address] [address] Deepak Greenfield LYMPHM% 8.0 % Critically low 20.5-60.0 [facility] Comment on above: Performed By: #### M G, CMP #### [facility] [address] [address] [address] Deepak Greenfield MCH 33.0 pg Normal 25.9-34.0 [facility] Comment on above: Performed By: #### M G, CMP #### [facility] [address] [address] [address] Deepak Greenfield MCHC 35.1 g/dl Normal 29.9-35.2 [facility] Comment on above: Performed By: #### M G, CMP #### [facility] [address] [address] [address] Deepak Greenfield MCV 94.0 fL Normal 80.0-94.0 [facility] Comment on above: Performed By: #### M G, CMP #### [facility] [address] [address] [address] Deepak Greenfield METAMYELOCYTE # Normal [facility] Comment on above: Performed By: #### M G, CMP #### [facility] [address] [place] [address] Dr. Deepak Greefnield METAMYELOCYTE % Normal [facility] Comment on above: Performed By: #### M G, CMP #### [facility] [address] [address] [address] Deepak Greenfield MONOM# 0.71 103/ul Normal 0.30-0.80 [facility] Comment on above: Performed By: #### M G, CMP #### [facility] [address] [place] [address] Dr. Deepak Greenfield MONOM% 8.0 % Normal 1.7-12.0 [facility] Comment on above: Performed By: #### M G, CMP #### [facility] [address] [place] [address] Dr. Deepak Greenfield MPV 9.6 fL Normal 9.5-13.5 [facility] Comment on above: Performed By: #### M G, CMP #### [facility] [address] [place] [address] Dr. Deepak Greenfield MYELOCYTE # Normal [facility] Comment on above: Performed By: #### M G, CMP #### [facility] [address] [place] [address] Dr. Deepak Greenfield MYELOCYTE % Normal [facility] Comment on above: Performed By: #### M G, CMP #### [facility] [address] [place] [address] Dr. Deepak Greenfield NRBC Normal [facility] Comment on above: Performed By: #### M G, CMP #### [facility] [address] [place] [address] Dr. Deepak Greenfield PLT 267 103/ul Normal 150-450 [facility] Comment on above: Performed By: #### M G, CMP #### [facility] [address] [place] [address] Dr. Deepak Greenfield RBC 3.15 106/ul Critically low 4.70-6.10 [facility] Comment on above: Performed By: #### M G, CMP #### [facility] [address] [address] [address] Deepak Greenfield RDW 12.9 % Normal 11.0-15.0 [facility] Comment on above: Performed By: #### M G, CMP #### [facility] [address] [address] [address] Deepak Greenfield SEG # 7.12 103/ul Critically high 1.40-6.50 [facility] Comment on above: Performed By: #### M G, CMP #### [facility] [address] [place] [address] Dr. Deepak Greenfield SEG % 80.0 % Critically high 43.0-75.0 [facility] Comment on above: Performed By: #### M G, CMP #### [facility] [address] [place] [address] Dr. Deepak Greenfield WBC 8.9 103/ul Normal 4.0-11.0 [facility] Comment on above: Performed By: #### M G, CMP #### [facility] [address] [place] [address] Dr. Deepak Greenfield PROF CHEM 8 (BAS METB)on Anion gap [Moles/Vol] 12.4 mmol/L Normal [facility] Comment on above: Performed By: #### C BC #### [facility] [address] [place] [address] Dr. Deepak Greenfield Calcium [Mass/Vol] 8.2 mg/dL Critically low 8.5-10.1 [facility] Comment on above: Performed By: #### C BC #### [facility] [address] [place] [address] Dr. Deepak Greenfield Chloride [Moles/Vol] 101 mmol/L Normal 98-107 [facility] Comment on above: Performed By: #### C BC #### [facility] [address] [place] [address] Dr. Deepak Greenfield CO2 [Moles/Vol] 25.0 mmol/L Normal 21.0-32.0 [facility] Comment on above: Performed By: #### C BC #### [facility] [address] [place] [address] Dr. Deepak Greenfield Creatinine [Mass/Vol] 0.53 mg/dL Critically low 0.70-1.30 [facility] Comment on above: Performed By: #### C BC #### [facility] [address] [place] [address] Dr. Deepak Greenfield EGFR-AF KAZAKH >60 Normal >=60 [facility] Comment on above: Performed By: #### C BC #### [facility] [address] [place] [address] Dr. Deepak Greenfield EGFR-NON AF KAZAKH >60 Normal >=60 [facility] Comment on above: Performed By: #### C BC #### [facility] [address] [place] [address] Dr. Deepak Greenfield Glucose [Mass/Vol] 161 mg/dL Critically high 74-106 T [facility] Comment on above: Performed By: #### C BC #### [facility] [address] [place] [address] Dr. Deepak Greenfield Potassium [Moles/Vol] 4.4 mmol/L Normal 3.5-5.1 [facility] Comment on above: Performed By: #### C BC #### [facility] [address] [place] [address] Dr. Deepak Greenfield Sodium [Moles/Vol] 134 mmol/L Critically low 136-145 Th [facility] Comment on above: Performed By: #### C BC #### [facility] [address] [place] [address] Dr. Deepak Greenfield Urea nitrogen [Mass/Vol] 13.0 mg/dL Normal 7.0-18.0 [facility] Comment on above: Performed By: #### C BC #### [facility] [address] [place] [address] Dr. Deepak Greenfield Urea nitrogen/Creatinine [Mass ratio] 24.5 mg/mg Normal [facility] Comment on above: Performed By: #### C BC #### [facility] [address] [address] [address] Deepak Greenfield AMMONIAon 07-26-2022 Ammonia (P) [Moles/Vol] 56 umol/L Critically high 11-32 [facility] Comment on above: Performed By: #### M G, CMP #### [facility] [address] [place] [address] Dr. Deepak Greenfield CARDIAC BEATRIS ADMITon 023 CK [Catalytic activity/Vol] 83 U/L Normal 39-308 [facility] Comment on above: Performed By: #### B MP #### [facility] [address] [place] [address] Dr. Deepak Greenfield CK.MB [Mass/Vol] 0.86 ng/mL Normal <=3.60 [facility] Comment on above: Performed By: #### B MP #### [facility] [address] [place] [address] Dr. Deepak Greenfield HSTROP 7.4 pg/mL Normal 4.0-76.1 [facility] Comment on above: Result Comment: CUT- OFF POINTS HAVE BEEN ESTABLISHED BASED ON THE FOURTH UNIVERSAL DEFINITIONS OF MYOCARDIAL INFARCTION. THE UPPER REFERENCE LIMIT (URL) OF TROPONIN, DEFINED THE 99TH PERCENTILE OF cTnI DISTRIBUTION IN A REFERENCE POPULATION, HAS BEEN CONFIRMED THE DECISION THRESHOLD FOR CT DIAGNOSIS. Performed By: #### B MP #### [facility] [address] [place] [address] Dr. Deepak Greenfield VALE 46 ng/mL Normal 16-96 [facility] Comment on above: Performed By: #### B MP #### [facility] [address] [place] [address] Dr. Deepak Greenfield CBC AUTO DIFFon 07-26-2022 BASO # 0.1 103/ul Normal 0.0-0.1 [facility] Comment on above: Performed By: #### M G, CMP #### [facility] [address] [place] [address] Dr. Deepak Greenfield Basophils/100 WBC (Bld) 0.5 % Normal 0.2-2.0 [facility] Comment on above: Performed By: #### M G, CMP #### [facility] [address] [place] [address] Dr. Deepak Greenfield EO # 0.2 103/ul Normal 0.0-0.7 [facility] Comment on above: Performed By: #### M G, CMP #### [facility] [address] [place] [address] Dr. Deepak Greenfield Eosinophils/100 WBC (Bld) 2.1 % Normal 0.9-7.0 [facility] Comment on above: Performed By: #### M G, CMP #### [facility] [address] [place] [address] Dr. Deepak Greenfield Erythrocyte distribution width (RBC) [Ratio] 13.2 % Normal 11.0-15.0 [facility] Comment on above: Performed By: #### M G, CMP #### [facility] [address] [place] [address] Dr. Deepak Greenfield Hematocrit (Bld) [Volume fraction] 36.7 % Critically low 42.0-54.0 [facility] Comment on above: Performed By: #### M G, CMP #### [facility] [address] [place] [address] Dr. Deepak Greenfield Hemoglobin (Bld) [Mass/Vol] 12.4 g/dL Critically low 14.0-18.0 [facility] Comment on above: Performed By: #### M G, CMP #### [facility] [address] [place] [address] Dr. Deepak Greenfield IG # 0.04 10e3/ul Critically high 0.00-0.03 [facility] Comment on above: Performed By: #### M G, CMP #### [facility] [address] [place] [address] Dr. Deepak Greenfield IG % 0.4 % Normal 0.0-0.5 [facility] Comment on above: Performed By: #### M G, CMP #### [facility] [address] [place] [address] Dr. Deepak Greenfield LYMPH # 1.7 103/ul Normal 1.2-3.8 [facility] Comment on above: Performed By: #### M G, CMP #### [facility] [address] [place] [address] Dr. Deepak Greenfield Lymphocytes/100 WBC (Bld) 15.6 % Critically low 20.5-60.0 [facility] Comment on above: Performed By: #### M G, CMP #### [facility] [address] [place] [address] Dr. Deepak Greenfield MANUAL DIFF REQ NO Normal [facility] Comment on above: Performed By: #### M G, CMP #### [facility] [address] [place] [address] Dr. Deepak Greenfield MCH (RBC) [Entitic mass] 32.5 pg Normal 25.9-34.0 [facility] Comment on above: Performed By: #### M G, CMP #### [facility] [address] [place] [address] Dr. Deepak Greenfield MCHC (RBC) [Mass/Vol] 33.8 g/dL Normal 29.9-35.2 [facility] Comment on above: Performed By: #### M G, CMP #### [facility] [address] [place] [address] Dr. Deepak Greenfield MCV (RBC) [Entitic vol] 96.3 fL Critically high 80.0-94.0 [facility] Comment on above: Performed By: #### M G, CMP #### [facility] [address] [place] [address] Dr. Deepak Greenfield MONO # 1.4 103/ul Critically high 0.3-0.8 [facility] Comment on above: Performed By: #### M G, CMP #### [facility] [address] [place] [address] Dr. Deepak Greenfield Monocytes/100 WBC (Bld) 12.8 % Critically high 1.7-12.0 [facility] Comment on above: Performed By: #### M G, CMP #### [facility] [address] [place] [address] Dr. Deepak Greenfield NEUT # 7.4 103/ul Critically high 1.4-6.5 [facility] Comment on above: Performed By: #### M G, CMP #### [facility] [address] [place] [address] Dr. Deepak Greenfield Neutrophils/100 WBC (Bld) 68.6 % Normal 43.0-75.0 [facility] Comment on above: Performed By: #### M G, CMP #### [facility] [address] [place] [address] Dr. Deepak Greenfield Platelet mean volume (Bld) [Entitic vol] 9.5 fL Normal 9.5-13.5 [facility] Comment on above: Performed By: #### M G, CMP #### [facility] [address] [place] [address] Dr. Deepak Greenfield PLT 314 103/ul Normal 150-450 [facility] Comment on above: Performed By: #### Karishma G, CMP #### [facility] [address] [place] [address] Dr. Deepak Greenfield RBC 3.81 106/ul Critically low 4.70-6.10 [facility] Comment on above: Performed By: #### M G, CMP #### [facility] [address] [place] [address] Dr. Deepak Greenfield WBC 10.8 103/ul Normal 4.0-11.0 [facility] Comment on above: Performed By: #### M G, CMP #### [facility] [address] [place] [address] Dr. Deepak Greenfield [facility]on SARS-CoV-2 (COVID-19) RNA CINDY+probe Ql (Unsp spec) Not detected Normal NOT DETECTED [facility] Comment on above: Result Comment: When [...] for this test is supported by the [employer] of Health and Human Service's declaration that [...] used). Performed By: #### C VDTBH #### [facility] [address] [place] [address] Dr. Deepak Greenfield INFLUENZA A AND B AGon 07-26 [facility] SEE BELOW Normal [facility] Comment on above: Result Comment: Nega tive for Flu A protein angiten. Infection due to Flu A cannot be ruled out. Flu A angiten in the sample may be below the detection limit of the test. Performed By: #### I NFLUAB #### [facility] [address] [place] [address] Dr. Deepak Green[facility] Normal [facility] Comment on above: Result Comment: Nega tive for Flu B protein antigen. Infection due to Flu B cannot be ruled out. Flu B antigen in the sample may be below the detection limit of the test. Performed By: #### I NFLUAB #### [facility] [address] [place] [address] Dr. Deepak Greenfield INFLUENZA A AG Negative Normal NEGATIVE SEE COMMENT [facility] Comment on above: Performed By: #### I NFLUAB #### [facility] [address] [place] [address] Dr. Deepak Greenfield INFLUENZA B AG Negative Normal NEGATIVE SEE COMMENT [facility] Comment on above: Performed By: #### I NFLUAB #### [facility] [address] [place] [address] Dr. Deepak Greenfield LACTATE/LACTIC ACIDon 2022 Lactate [Moles/Vol] 1.2 mmol/L Normal 0.4-2.0 [facility] Comment on above: Performed By: #### M G, CMP #### [facility] [address] [address] [address] Deepak Greenfield PROF 14(COMP METB)on 023 Albumin [Mass/Vol] 3.3 g/dL Critically low 3.4-5.0 [facility] Comment on above: Performed By: #### B MP #### [facility] [address] [place] [address] Dr. Deepak Greenfield Albumin/Globulin [Mass ratio] 0.8 {ratio} Normal [facility] Comment on above: Performed By: #### B MP #### [facility] [address] [place] [address] Dr. Deepak Greenfield ALP [Catalytic activity/Vol] 45 U/L Critically low 46-116 [facility] Comment on above: Performed By: #### B MP #### [facility] [address] [place] [address] Dr. Deepak Greenfield ALT [Catalytic activity/Vol] 114 U/L Critically high 16-63 [facility] Comment on above: Performed By: #### B MP #### [facility] [address] [place] [address] Dr. Deepak Greenfield Anion gap [Moles/Vol] 14.5 mmol/L Normal [facility] Comment on above: Performed By: #### B MP #### [facility] [address] [place] [address] Dr. Deepak Greenfield AST [Catalytic activity/Vol] 71 U/L Critically high 15-37 [facility] Comment on above: Performed By: #### B MP #### [facility] [address] [place] [address] Dr. Deepak Greenfield Bilirubin [Mass/Vol] 0.7 mg/dL Normal 0.2-1.0 [facility] Comment on above: Performed By: #### B MP #### [facility] [address] [place] [address] Dr. Deepak Greenfield Calcium [Mass/Vol] 9.1 mg/dL Normal 8.5-10.1 [facility] Comment on above: Performed By: #### B MP #### [facility] [address] [place] [address] Dr. Deepak Greenfield Chloride [Moles/Vol] 98 mmol/L Normal 98-107 [facility] Comment on above: Performed By: #### B MP #### [facility] [address] [address] [address] Deepak Greenfield CO2 [Moles/Vol] 27.4 mmol/L Normal 21.0-32.0 [facility] Comment on above: Performed By: #### B MP #### [facility] [address] [place] [address] Dr. Deepak Greenfiedl Creatinine [Mass/Vol] 0.65 mg/dL Critically low 0.70-1.30 [facility] Comment on above: Performed By: #### B MP #### [facility] [address] [place] [address] Dr. Deepak Greenfield EGFR-AF KAZAKH >60 Normal >=60 [facility] Comment on above: Performed By: #### B MP #### [facility] [address] [place] [address] Dr. Deepak Greenfield EGFR-NON AF KAZAKH >60 Normal >=60 [facility] Comment on above: Performed By: #### B MP #### [facility] [address] [place] [address] Dr. Deepak Greenfield Globulin (S) [Mass/Vol] 4.2 g/dL Normal [facility] Comment on above: Performed By: #### B MP #### [facility] [address] [place] [address] Dr. Deepak Greenfield Glucose [Mass/Vol] 105 mg/dL Normal 74-106 [facility] Comment on above: Performed By: #### B MP #### [facility] [address] [place] [address] Dr. Deepak Greenfield Potassium [Moles/Vol] 3.9 mmol/L Normal 3.5-5.1 [facility] Comment on above: Performed By: #### B MP #### [facility] [address] [place], [place] [address] Dr. Deepak Greenfield Protein [Mass/Vol] 7.5 g/dL Normal 6.4-8.2 [facility] Comment on above: Performed By: #### B MP #### [facility] [address] [place], [place] [address] Dr. Deepak Greenfield Sodium [Moles/Vol] 136 mmol/L Normal 136-145 [facility] Comment on above: Performed By: #### B MP #### [facility] [address] [place], [place] [address] Dr. Deepak Greenfield Urea nitrogen [Mass/Vol] 13.0 mg/dL Normal 7.0-18.0 [facility] Comment on above: Performed By: #### B MP #### [facility] [address] [place], [place] [address] Dr. Deepak Greenfield Urea nitrogen/Creatinine [Mass ratio] 20.0 mg/mg Normal [facility] Comment on above: Performed By: #### B MP #### [facility] [address] [place], [place] [address] Dr. Deepak Greenfield XR CHEST 1 Von [...] by: ANICETO GARCIA Date: 2022-07-26 12:27 Normal [facility] Consent for Treatmenton Consent for Treatment [id number] .00CD:127 Normal [facility] Physician Orderon 07-23-2022 Physician Order [id number]# 1.00CD:127 Normal [facility] XR Adult Swallowing Function w/ Videoon 07-23-2022 [...] mGy = 11.70 DAP = 270.92 Normal [facility] AMMONIAon 06-03-2022 Ammonia (P) [Moles/Vol] 112 umol/L Critically high 11-32 [facility] Comment on above: Performed By: #### A MM #### [facility] [address] [place] [address] Dr. Deepak Greenfield DEPAKENE/ VALPROIC ACIDon DEPAKENE 94.0 ug/ml Normal 50.0-100.0 [facility] Comment on above: Performed By: #### C BC #### [facility] [address] [place] [address] Dr. Deepak Greenfield LIVER PROFILEon 06-03-2022 Albumin [Mass/Vol] 3.6 g/dL Normal 3.4-5.0 [facility] Comment on above: Performed By: #### C BC #### [facility] [address] [place] [address] Dr. Deepak Greenfield Albumin/Globulin [Mass ratio] 0.9 {ratio} Normal [facility] Comment on above: Performed By: #### C BC #### [facility] [address] [address] [address] Deepak Greenfield ALP [Catalytic activity/Vol] 55 U/L Normal 46-116 [facility] Comment on above: Performed By: #### C BC #### [facility] [address] [place] [address] Dr. Deepak Greenfield ALT [Catalytic activity/Vol] 76 U/L Critically high 16-63 [facility] Comment on above: Performed By: #### C BC #### [facility] [address] [place] [address] Dr. Deepak Greenfield AST [Catalytic activity/Vol] 51 U/L Critically high 15-37 [facility] Comment on above: Performed By: #### C BC #### [facility] [address] [place] [address] Dr. Deepak Greenfield BILI, CONJUGATED 0.1 mg/dL Normal 0.0-0.2 [facility] Comment on above: Performed By: #### C BC #### [facility] [address] [place] [address] Dr. Deepak Greenfield Bilirubin [Mass/Vol] 0.4 mg/dL Normal 0.2-1.0 [facility] Comment on above: Performed By: #### C BC #### [facility] [address] [place] [address] Dr. Deepak Greenfield Globulin (S) [Mass/Vol] 4.1 g/dL Normal [facility] Comment on above: Performed By: #### C BC #### [facility] [address] [place] [address] Dr. Deepak Greenfield Protein [Mass/Vol] 7.7 g/dL Normal 6.4-8.2 [facility] Comment on above: Performed By: #### C BC #### [facility] [address] [place] [address] Dr. Deepak Greenfield AMMONIAon 04-22-2022 Ammonia (P) [Moles/Vol] 108 umol/L Critically high 11-32 [facility] Comment on above: Performed By: #### B MP #### [facility] [address] [place] [address] Dr. Deepak Greenfield CBC AUTO DIFFon 04-22-2022 BASO # 0.0 103/ul Normal 0.0-0.1 [facility] Comment on above: Performed By: #### C BC #### [facility] [address] [place] [address] Dr. Deepak Greenfield Basophils/100 WBC (Bld) 0.5 % Normal 0.2-2.0 [facility] Comment on above: Performed By: #### C BC #### [facility] [address] [place] [address] Dr. Deepak Greenfield EO # 0.1 103/ul Normal 0.0-0.7 [facility] Comment on above: Performed By: #### C BC #### [facility] [address] [place] [address] Dr. Deepak Greenfield Eosinophils/100 WBC (Bld) 1.4 % Normal 0.9-7.0 [facility] Comment on above: Performed By: #### C BC #### [facility] [address] [place] [address] Dr. Deepak Greenfield Erythrocyte distribution width (RBC) [Ratio] 14.2 % Normal 11.0-15.0 [facility] Comment on above: Performed By: #### C BC #### [facility] [address] [place] [address] Dr. Deepak Greenfield Hematocrit (Bld) [Volume fraction] 37.0 % Critically low 42.0-54.0 [facility] Comment on above: Performed By: #### C BC #### [facility] [address] [place] [address] Dr. Deepak Greenfield Hemoglobin (Bld) [Mass/Vol] 12.3 g/dL Critically low 14.0-18.0 [facility] Comment on above: Performed By: #### C BC #### [facility] [address] [address] [address] Deepak Greenfield IG # 0.00 10e3/ul Normal 0.00-0.03 [facility] Comment on above: Performed By: #### C BC #### [facility] [address] [address] [address] Deepak Greenfield IG % 0.0 % Normal 0.0-0.5 [facility] Comment on above: Performed By: #### C BC #### [facility] [address] [place] [address] Dr. Deepak Greenfield LYMPH # 3.3 103/ul Normal 1.2-3.8 [facility] Comment on above: Performed By: #### C BC #### [facility] [address] [place] [address] Dr. Deepak Greenfield Lymphocytes/100 WBC (Bld) 51.5 % Normal 20.5-60.0 [facility] Comment on above: Performed By: #### C BC #### [facility] [address] [place] [address] Dr. Deepak Greenfield MANUAL DIFF REQ NO Normal [facility] Comment on above: Performed By: #### C BC #### [facility] [address] [place] [address] Dr. Deepak Greenfield MCH (RBC) [Entitic mass] 32.2 pg Normal 25.9-34.0 [facility] Comment on above: Performed By: #### C BC #### [facility] [address] [place] [address] Dr. Deepak Greenfield MCHC (RBC) [Mass/Vol] 33.2 g/dL Normal 29.9-35.2 [facility] Comment on above: Performed By: #### C BC #### [facility] [address] [place] [address] Dr. Deepak Greenfield MCV (RBC) [Entitic vol] 96.9 fL Critically high 80.0-94.0 [facility] Comment on above: Performed By: #### C BC #### [facility] [address] [address] [address] Deepak Greenfield MONO # 0.6 103/ul Normal 0.3-0.8 [facility] Comment on above: Performed By: #### C BC #### [facility] [address] [place] [address] Dr. Deepak Greenfield Monocytes/100 WBC (Bld) 9.7 % Normal 1.7-12.0 [facility] Comment on above: Performed By: #### C BC #### [facility] [address] [place] [address] Dr. Deepak Greenfield NEUT # 2.4 103/ul Normal 1.4-6.5 [facility] Comment on above: Performed By: #### C BC #### [facility] [address] [place] [address] Dr. Deepak Greenfield Neutrophils/100 WBC (Bld) 36.9 % Critically low 43.0-75.0 [facility] Comment on above: Performed By: #### C BC #### [facility] [address] [place] [address] Dr. Deepak Greenfield Platelet mean volume (Bld) [Entitic vol] 10.2 fL Normal 9.5-13.5 [facility] Comment on above: Performed By: #### C BC #### [facility] [address] [place] [address] Dr. Deepak Greenfield PLT 248 103/ul Normal 150-450 [facility] Comment on above: Performed By: #### C BC #### [facility] [address] [place] [address] Dr. Deepak Greenfield RBC 3.82 106/ul Critically low 4.70-6.10 [facility] Comment on above: Performed By: #### C BC #### [facility] [address] [place] [address] Dr. Deepak Greenfield WBC 6.5 103/ul Normal 4.0-11.0 [facility] Comment on above: Performed By: #### C BC #### [facility] [address] [place] [address] Dr. Deepak Greenfield FERRITINon 04-22-2022 Ferritin [Mass/Vol] 152.0 ng/mL Normal 26.0-388.0 [facility] Comment on above: Performed By: #### M G, CMP #### [facility] [address] [place] [address] Dr. Deepak Greenfield IRONon 04-22-2022 Iron [Mass/Vol] 136.0 ug/dL Normal 65.0-175.0 [facility] Comment on above: Performed By: #### M G, CMP #### [facility] [address] [place] [address] Dr. Deepak Greenfield MAGNESIUMon 04-22-2022 Magnesium [Mass/Vol] 1.6 mg/dL Critically low 1.8-2.4 [facility] Comment on above: Performed By: #### I NFLUAB #### [facility] [address] [place] [address] Dr. Deepak Greenfield VITAMIN B12on 04-22-2022 Cobalamin (Vitamin B12) [Mass/Vol] 545.0 pg/mL Normal 193.0-986.0 [facility] Comment on above: Performed By: #### M G, CMP #### [facility] [address] [place] [address] Dr. Deepak Greenfield CBC AUTO DIFFon 03-19-2022 BASO # 0.0 103/ul Normal 0.0-0.1 [facility] Comment on above: Performed By: #### Karishma G, CMP #### [facility] [address] [place] [address] Dr. Deepak Greenfield Basophils/100 WBC (Bld) 0.5 % Normal 0.2-2.0 [facility] Comment on above: Performed By: #### M G, CMP #### [facility] [address] [place] [address] Dr. Deepak Greenfield EO # 0.2 103/ul Normal 0.0-0.7 [facility] Comment on above: Performed By: #### M G, CMP #### [facility] [address] [place] [address] Dr. Deepak Greenfield Eosinophils/100 WBC (Bld) 2.0 % Normal 0.9-7.0 [facility] Comment on above: Performed By: #### M G, CMP #### [facility] [address] [place] [address] Dr. Deepak Greenfield Erythrocyte distribution width (RBC) [Ratio] 13.5 % Normal 11.0-15.0 [facility] Comment on above: Performed By: #### M G, CMP #### [facility] [address] [place] [address] Dr. Deepak Greenfield Hematocrit (Bld) [Volume fraction] 38.5 % Critically low 42.0-54.0 [facility] Comment on above: Performed By: #### M G, CMP #### [facility] [address] [place] [address] Dr. Deepak Greenfield Hemoglobin (Bld) [Mass/Vol] 12.6 g/dL Critically low 14.0-18.0 [facility] Comment on above: Performed By: #### M G, CMP #### [facility] [address] [place] [address] Dr. Deepak Greenfield IG # 0.02 10e3/ul Normal 0.00-0.03 [facility] Comment on above: Performed By: #### M G, CMP #### [facility] [address] [place] [address] Dr. Deepak Greenfield IG % 0.2 % Normal 0.0-0.5 [facility] Comment on above: Performed By: #### M G, CMP #### [facility] [address] [place] [address] Dr. Deepak Greenfield LYMPH # 3.1 103/ul Normal 1.2-3.8 [facility] Comment on above: Performed By: #### M G, CMP #### [facility] [address] [place] [address] Dr. Deepak Greenfield Lymphocytes/100 WBC (Bld) 36.2 % Normal 20.5-60.0 [facility] Comment on above: Performed By: #### M G, CMP #### [facility] [address] [place] [address] Dr. Deepak Greenfield MANUAL DIFF REQ NO Normal [facility] Comment on above: Performed By: #### M G, CMP #### [facility] [address] [place] [address] Dr. Deepak Greenfield MCH (RBC) [Entitic mass] 32.1 pg Normal 25.9-34.0 [facility] Comment on above: Performed By: #### M G, CMP #### [facility] [address] [place] [address] Dr. Deepak Greenfield MCHC (RBC) [Mass/Vol] 32.7 g/dL Normal 29.9-35.2 [facility] Comment on above: Performed By: #### M G, CMP #### [facility] [address] [place] [address] Dr. Deepak Greenfield MCV (RBC) [Entitic vol] 98.0 fL Critically high 80.0-94.0 [facility] Comment on above: Performed By: #### M G, CMP #### [facility] [address] [place] [address] Dr. Deepak Greenfield MONO # 0.9 103/ul Critically high 0.3-0.8 [facility] Comment on above: Performed By: #### M G, CMP #### [facility] [address] [place] [address] Dr. Deepak Greenfield Monocytes/100 WBC (Bld) 10.6 % Normal 1.7-12.0 [facility] Comment on above: Performed By: #### M G, CMP #### [facility] [address] [place] [address] Dr. Deepak Greenfield NEUT # 4.3 103/ul Normal 1.4-6.5 [facility] Comment on above: Performed By: #### M G, CMP #### [facility] [address] [place] [address] Dr. Deepak Greenfield Neutrophils/100 WBC (Bld) 50.5 % Normal 43.0-75.0 [facility] Comment on above: Performed By: #### M G, CMP #### [facility] [address] [address] [address] Deepak Greenfield Platelet mean volume (Bld) [Entitic vol] 9.9 fL Normal 9.5-13.5 [facility] Comment on above: Performed By: #### M G, CMP #### [facility] [address] [place] [address] Dr. Deepak Greenfield PLT 263 103/ul Normal 150-450 [facility] Comment on above: Performed By: #### M G, CMP #### [facility] [address] [place] [address] Dr. Deepak Greenfield RBC 3.93 106/ul Critically low 4.70-6.10 [facility] Comment on above: Performed By: #### M G, CMP #### [facility] [address] [place] [address] Dr. Deepak Greenfield WBC 8.6 103/ul Normal 4.0-11.0 [facility] Comment on above: Performed By: #### M G, CMP #### [facility] [address] [place] [address] Dr. Deepak Greenfield MAGNESIUMon 03-19-2022 Magnesium [Mass/Vol] 1.5 mg/dL Critically low 1.8-2.4 [facility] Comment on above: Performed By: #### M G, CMP #### [facility] [address] [place] [address] Dr. Deepak Greenfield PROF 14(COMP METB)on 022 Albumin [Mass/Vol] 3.4 g/dL Normal 3.4-5.0 [facility] Comment on above: Performed By: #### M G, CMP #### [facility] [address] [place] [address] Dr. Deepak Greenfield Albumin/Globulin [Mass ratio] 0.9 {ratio} Normal [facility] Comment on above: Performed By: #### M G, CMP #### [facility] [address] [place] [address] Dr. Deepak Greenfield ALP [Catalytic activity/Vol] 47 U/L Normal 46-116 [facility] Comment on above: Performed By: #### M G, CMP #### [facility] [address] [address] [address] Deepak Greenfield ALT [Catalytic activity/Vol] 48 U/L Normal 16-63 [facility] Comment on above: Performed By: #### M G, CMP #### [facility] [address] [address] [address] Deepak Greenfield Anion gap [Moles/Vol] 9.5 mmol/L Normal [facility] Comment on above: Performed By: #### M G, CMP #### [facility] [address] [address] [address] Deepak Greenfield AST [Catalytic activity/Vol] 30 U/L Normal 15-37 [facility] Comment on above: Performed By: #### M G, CMP #### [facility] [address] [place] [address] Dr. Deepak Greenfield Bilirubin [Mass/Vol] 0.2 mg/dL Normal 0.2-1.0 [facility] Comment on above: Performed By: #### M G, CMP #### [facility] [address] [place] [address] Dr. Deepak Greenfield Calcium [Mass/Vol] 8.7 mg/dL Normal 8.5-10.1 [facility] Comment on above: Performed By: #### M G, CMP #### [facility] [address] [place] [address] Dr. Deepak Greenfield Chloride [Moles/Vol] 105 mmol/L Normal 98-107 [facility] Comment on above: Performed By: #### M G, CMP #### [facility] [address] [address] [address] Deepak Greenfield CO2 [Moles/Vol] 32.6 mmol/L Critically high 21.0-32.0 [facility] Comment on above: Performed By: #### M G, CMP #### [facility] [address] [address] [address] Deepak Greenfield Creatinine [Mass/Vol] 0.70 mg/dL Normal 0.70-1.30 [facility] Comment on above: Performed By: #### M G, CMP #### [facility] [address] [address] [address] Deepak Greenfield EGFR-AF KAZAKH >60 Normal >=60 [facility] Comment on above: Performed By: #### M G, CMP #### [facility] [address] [address] [address] Deepak Greenfield EGFR-NON AF KAZAKH >60 Normal >=60 [facility] Comment on above: Performed By: #### M G, CMP #### [facility] [address] [address] [address] Deepak Greenfield Globulin (S) [Mass/Vol] 3.8 g/dL Normal [facility] Comment on above: Performed By: #### M G, CMP #### [facility] [address] [place] [address] Dr. Deepak Greenfield Glucose [Mass/Vol] 98 mg/dL Normal 74-106 [facility] Comment on above: Performed By: #### M G, CMP #### [facility] [address] [address] [address] Deepak Greenfield Potassium [Moles/Vol] 4.1 mmol/L Normal 3.5-5.1 [facility] Comment on above: Performed By: #### M G, CMP #### [facility] [address] [address] [address] Deepak Greenfield Protein [Mass/Vol] 7.2 g/dL Normal 6.4-8.2 [facility] Comment on above: Performed By: #### M G, CMP #### [facility] [address] [address] [address] Deepak Greenfield Sodium [Moles/Vol] 143 mmol/L Normal 136-145 [facility] Comment on above: Performed By: #### M G, CMP #### [facility] [address] [address] [address] Deepak Greenfield Urea nitrogen [Mass/Vol] 10.0 mg/dL Normal 7.0-18.0 [facility] Comment on above: Performed By: #### M G, CMP #### [facility] [address] [place] [address] Dr. Deepak Greenfield Urea nitrogen/Creatinine [Mass ratio] 14.3 mg/mg Normal [facility] Comment on above: Performed By: #### M G, CMP #### [facility] [address] [place] [address] Dr. Deepak Greenfield VITAMIN D 25 OHon 03-19-2022 VIT D 25-OH 67.5 ng/mL Normal [facility] Comment on above: Performed By: #### M Lacy, CMP #### [facility] [address] [place] [address] Dr. Deepak Greenfield VIT D RANGES SEE BELOW Normal [facility] Comment on above: Result Comment: <20 ng/mL Vit D deficient 20 - <30 ng/mL Vit D insufficient 30 - 100 ng/mL Vit D sufficient >100 ng/mL Potential Toxicity Performed By: #### M Lacy, CMP #### [facility] [address] [place] [address] Dr. Deepak Greenfield AMMONIAon 03-10-2022 Ammonia (P) [Moles/Vol] 36 umol/L Critically high [facility] Comment on above: Performed By: #### C BC #### [facility] [address] [place] [address] Dr. Deepak Greenfield DEPAKENE/ VALPROIC ACIDon DEPAKENE 93.5 ug/ml Normal 50.0-100.0 [facility] Comment on above: Performed By: #### B MP #### [facility] [address] [place] [address] Dr. Deepak Greenfield BNPon 01-24-2022 Natriuretic peptide B (Bld) [Mass/Vol] 183.0 pg/mL Normal <=450.0 [facility] Comment on above: Performed By: #### M Lacy, CMP #### [facility] [address] [place] [address] Dr. Deepak Greenfield CBC AUTO DIFFon 01-24-2022 BASO # 0.0 103/ul Normal 0.0-0.1 [facility] Comment on above: Performed By: #### C VDTBH #### [facility] [address] [place] [address] Dr. Deepak Greenfield Basophils/100 WBC (Bld) 0.3 % Normal 0.2-2.0 [facility] Comment on above: Performed By: #### C VDTBH #### [facility] [address] [place] [address] Dr. Deepak Greenfield EO # 0.1 103/ul Normal 0.0-0.7 [facility] Comment on above: Performed By: #### C VDTBH #### [facility] [address] [place] [address] Dr. Deepak Greenfield Eosinophils/100 WBC (Bld) 0.4 % Critically low 0.9-7.0 [facility] Comment on above: Performed By: #### C VDTBH #### [facility] [address] [place] [address] Dr. Deepak Greenfield Erythrocyte distribution width (RBC) [Ratio] 13.6 % Normal 11.0-15.0 [facility] Comment on above: Performed By: #### C VDTBH #### [facility] [address] [place] [address] Dr. Deepak Greenfield Hematocrit (Bld) [Volume fraction] 39.3 % Critically low 42.0-54.0 [facility] Comment on above: Performed By: #### C VDTBH #### [facility] [address] [place] [address] Dr. Deepak Greenfield Hemoglobin (Bld) [Mass/Vol] 12.6 g/dL Critically low 14.0-18.0 [facility] Comment on above: Performed By: #### C VDTBH #### [facility] [address] [place] [address] Dr. Deepak Greenfield IG # 0.04 10e3/ul Critically high 0.00-0.03 [facility] Comment on above: Performed By: #### C VDTBH #### [facility] [address] [place] [address] Dr. Deepak Greenfield IG % 0.3 % Normal 0.0-0.5 [facility] Comment on above: Performed By: #### C VDTBH #### [facility] [address] [place] [address] Dr. Deepak Greenfield LYMPH # 2.4 103/ul Normal 1.2-3.8 [facility] Comment on above: Performed By: #### C VDTBH #### [facility] [address] [place] [address] Dr. Deepak Greenfield Lymphocytes/100 WBC (Bld) 16.6 % Critically low 20.5-60.0 [facility] Comment on above: Performed By: #### C VDTBH #### [facility] [address] [place] [address] Dr. Deepak Greenfield MANUAL DIFF REQ NO Normal [facility] Comment on above: Performed By: #### C VDTBH #### [facility] [address] [place] [address] Dr. Deepak Greenfield MCH (RBC) [Entitic mass] 32.0 pg Normal 25.9-34.0 [facility] Comment on above: Performed By: #### C VDTBH #### [facility] [address] [place] [address] Dr. Deepak Greenfield MCHC (RBC) [Mass/Vol] 32.1 g/dL Normal 29.9-35.2 [facility] Comment on above: Performed By: #### C VDTBH #### [facility] [address] [place] [address] Dr. Deepak Greenfield MCV (RBC) [Entitic vol] 99.7 fL Critically high 80.0-94.0 [facility] Comment on above: Performed By: #### C VDTBH #### [facility] [address] [place] [address] Dr. Deepak Greenfield MONO # 1.4 103/ul Critically high 0.3-0.8 [facility] Comment on above: Performed By: #### C VDTBH #### [facility] [address] [place] [address] Dr. eDepak Greenfield Monocytes/100 WBC (Bld) 9.8 % Normal 1.7-12.0 [facility] Comment on above: Performed By: #### C VDTBH #### [facility] [address] [place] [address] Dr. Deepak Greenfield NEUT # 10.7 103/ul Critically high 1.4-6.5 [facility] Comment on above: Performed By: #### C VDTBH #### [facility] [address] [place] [address] Dr. Deepak Greenfield Neutrophils/100 WBC (Bld) 72.6 % Normal 43.0-75.0 [facility] Comment on above: Performed By: #### C VDTBH #### [facility] [address] [place] [address] Dr. Deepak Greenfield Platelet mean volume (Bld) [Entitic vol] 10.4 fL Normal 9.5-13.5 [facility] Comment on above: Performed By: #### C VDTBH #### [facility] [address] [place] [address] Dr. Deepak Greenfield PLT 280 103/ul Normal 150-450 [facility] Comment on above: Performed By: #### C VDTBH #### [facility] [address] [place] [address] Dr. Deepak Greenfield RBC 3.94 106/ul Critically low 4.70-6.10 [facility] Comment on above: Performed By: #### C VDTBH #### [facility] [address] [place] [address] Dr. Deepak Greenfield WBC 14.7 103/ul Critically high 4.0-11.0 [facility] Comment on above: Performed By: #### C VDTBH #### [facility] [address] [place] [address] Dr. Deepak Greenfield CULTURE BLOODon 01-24-2022 Microscopic examination of blood, culture Culture Observations: No growth at 5 days. Normal [facility] Comment on above: Performed By: #### C BC #### [facility] [address] [place] [address] Dr. Deepak Greenfield Microscopic examination of blood, culture Culture Observations: No growth at 5 days. Normal [facility] Comment on above: Performed By: #### C BC #### [facility] [address] [place] [address] Dr. Deepak Greenfield Covid-19 PCR ([facility])on SARS-CoV-2 (COVID-19) RNA CINDY+probe Ql (Unsp spec) Not detected Normal NOT DETECTED [facility] Comment on above: Result Comment: When [...] for this test is supported by the [employer] of Health and Human Service's declaration that [...] used). Performed By: #### I NFLUAB #### [facility] [address] [place] [address] Dr. Deepak Greenfield LACTATE/LACTIC ACIDon 2021 Lactate [Moles/Vol] 1.7 mmol/L Normal 0.4-1.9 [facility] Comment on above: Performed By: #### M G, CMP #### [facility] [address] [place] [address] Dr. Deepak Greenfield PROF 14(COMP METB)on 022 Albumin [Mass/Vol] 3.2 g/dL Critically low 3.4-5.0 [facility] Comment on above: Performed By: #### M G, CMP #### [facility] [address] [place] [address] Dr. Deepak Greenfield Albumin/Globulin [Mass ratio] 0.7 {ratio} Normal [facility] Comment on above: Performed By: #### M G, CMP #### [facility] [address] [place] [address] Dr. Deepak Greenfield ALP [Catalytic activity/Vol] 49 U/L Normal 46-116 [facility] Comment on above: Performed By: #### M G, CMP #### [facility] [address] [place] [address] Dr. Deepak Greenfiedl ALT [Catalytic activity/Vol] 41 U/L Normal 16-63 [facility] Comment on above: Performed By: #### M G, CMP #### [facility] [address] [place] [address] Dr. Deepak Greenfield Anion gap [Moles/Vol] 11.1 mmol/L Normal [facility] Comment on above: Performed By: #### M G, CMP #### [facility] [address] [place] [address] Dr. Deepak Greenfield AST [Catalytic activity/Vol] 29 U/L Normal 15-37 [facility] Comment on above: Performed By: #### Karishma G, CMP #### [facility] [address] [place] [address] Dr. Deepak Greenfield Bilirubin [Mass/Vol] 0.5 mg/dL Normal 0.2-1.0 [facility] Comment on above: Performed By: #### Karishma G, CMP #### [facility] [address] [place] [address] Dr. Deepak Greenfield Calcium [Mass/Vol] 9.1 mg/dL Normal 8.5-10.1 [facility] Comment on above: Performed By: #### M G, CMP #### [facility] [address] [place] [address] Dr. Deepak Greenfield Chloride [Moles/Vol] 108 mmol/L Critically high 98-107 [facility] Comment on above: Performed By: #### M G, CMP #### [facility] [address] [place] [address] Dr. Deepak Greenfield CO2 [Moles/Vol] 25.7 mmol/L Normal 21.0-32.0 [facility] Comment on above: Performed By: #### M G, CMP #### [facility] [address] [place] [address] Dr. Deepak Greenfield Creatinine [Mass/Vol] 0.89 mg/dL Normal 0.70-1.30 [facility] Comment on above: Performed By: #### M G, CMP #### [facility] [address] [address] [address] Deepak Greenfield EGFR-AF KAZAKH >60 Normal >=60 [facility] Comment on above: Performed By: #### M G, CMP #### [facility] [address] [place] [address] Dr. Deepak Greenfield EGFR-NON AF KAZAKH >60 Normal >=60 [facility] Comment on above: Performed By: #### M G, CMP #### [facility] [address] [place] [address] Dr. Deepak Greenfield Globulin (S) [Mass/Vol] 4.5 g/dL Normal [facility] Comment on above: Performed By: #### M G, CMP #### [facility] [address] [place] [address] Dr. Deepak Greenfield Glucose [Mass/Vol] 178 mg/dL Critically high 74-106 T [facility] Comment on above: Performed By: #### M G, CMP #### [facility] [address] [place] [address] Dr. Deepak Greenfield Potassium [Moles/Vol] 3.8 mmol/L Normal 3.5-5.1 [facility] Comment on above: Performed By: #### M G, CMP #### [facility] [address] [place] [address] Dr. Deepak Greenfield Protein [Mass/Vol] 7.7 g/dL Normal 6.4-8.2 [facility] Comment on above: Performed By: #### M G, CMP #### [facility] [address] [place] [address] Dr. Deepak Greenfield Sodium [Moles/Vol] 141 mmol/L Normal 136-145 [facility] Comment on above: Performed By: #### M G, CMP #### [facility] [address] [address] [address] Deepak Greenfield Urea nitrogen [Mass/Vol] 16.0 mg/dL Normal 7.0-18.0 [facility] Comment on above: Performed By: #### M G, CMP #### [facility] [address] [address] [address] Deepak Greenfield Urea nitrogen/Creatinine [Mass ratio] 18.0 mg/mg Normal [facility] Comment on above: Performed By: #### M G, CMP #### [facility] [address] [place] [address] Dr. Deepak Greenfield TROPONIN, HIGH SENSITIVITYon 01-24-2022 HSTROP 6.4 pg/mL Normal 4.0-76.1 [facility] Comment on above: Result Comment: CUT- OFF POINTS HAVE BEEN ESTABLISHED BASED ON THE FOURTH UNIVERSAL DEFINITIONS OF MYOCARDIAL INFARCTION. THE UPPER REFERENCE LIMIT (URL) OF TROPONIN, DEFINED THE 99TH PERCENTILE OF cTnI DISTRIBUTION IN A REFERENCE POPULATION, HAS BEEN CONFIRMED THE DECISION THRESHOLD FOR CT DIAGNOSIS. Performed By: #### Karishma House, CMP #### [facility] [address] [place] [address] Dr. 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 Deepak Greenfield Bilirubin Ql (U) Negative Normal NEGATIVE [facility] Comment on above: Performed By: #### C VDTBH #### [facility] [address] [place] [address] Dr. Deepak Greenfield CAST NONE SEEN Normal NONE SEEN [facility] Comment on above: Performed By: #### C VDTBH #### [facility] [address] [place] [address] Dr. Deepak Greenfield Clarity (U) CLEAR Normal CLEAR [facility] Comment on above: Performed By: #### C VDTBH #### [facility] [address] [place] [address] Dr. Deepak Greenfield Color (U) YELLOW Normal YELLOW [facility] Comment on above: Performed By: #### C VDTBH #### [facility] [address] [place] [address] Dr. Deepak Greenfield Crystals LM Nom (Urine sed) NONE SEEN Normal NONE SEEN [facility] Comment on above: Performed By: #### C VDTBH #### [facility] [address] [place] [address] Dr. Deepak Greenfield Epithelial cells LM Ql (Urine sed) RARE Normal NONE SEEN /RARE [facility] Comment on above: Performed By: #### C VDTBH #### [facility] [address] [place] [address] Dr. Deepak Greenfield Glucose Ql (U) Negative Normal NEGATIVE [facility] Comment on above: Performed By: #### C VDTBH #### [facility] [address] [place] [address] Dr. Deepak Greenfield Hemoglobin Ql (U) Negative Normal NEGATIVE [facility] Comment on above: Performed By: #### C VDTBH #### [facility] [address] [place] [address] Dr. Deepak Greenfield Ketones Ql (U) 15 mg/dl Abnormal NEGATIVE [facility] Comment on above: Performed By: #### C VDTBH #### [facility] [address] [place] [address] Dr. Deepak Greenfield LEUKOCYTES Negative Normal NEGATIVE [facility] Comment on above: Performed By: #### C VDTBH #### [facility] [address] [place] [address] Dr. Deepak Greenfield MUCOUS NONE SEEN Normal NONE SEEN [facility] Comment on above: Performed By: #### C VDTBH #### [facility] [address] [place] [address] Dr. Deepak Greenfield Nitrite Ql (U) Negative Normal NEGATIVE [facility] Comment on above: Performed By: #### C VDTBH #### [facility] [address] [place] [address] Dr. Deepak Greenfield pH (U) 6.0 [pH] Normal 5-9 [facility] Comment on above: Performed By: #### C VDTBH #### [facility] [address] [place] [address] Dr. Deepak Gerenfield RBC 0-2 Normal 0-2 [facility] Comment on above: Performed By: #### C VDTBH #### [facility] [address] [place] [address] Dr. Deepak Greenfield SPEC GRAVITY 1.020 Normal 1.005-<=1.025 [facility] Comment on above: Performed By: #### C VDTBH #### [facility] [address] [place] [address] Dr. Deepak Greenfield UA PROTEIN Negative Normal NEGATIVE/ TRACE [facility] Comment on above: Performed By: #### C VDTBH #### [facility] [address] [place] [address] Dr. Deepak Greenfield Urobilinogen Qn (U) 0.2 {Ottoniel'U}/dL Normal 0.2 - 1. 0 [facility] Comment on above: Performed By: #### C VDTBH #### [facility] [address] [place] [address] Dr. Deepak Greenfield WBC NONE SEEN Normal NONE SEEN [facility] Comment on above: Performed By: #### C VDTBH #### [facility] [address] [place] [address] Dr. Deepak Greenfield ALBUMINon 01-12-2022 Albumin [Mass/Vol] 3.4 g/dL Normal 3.4-5.0 [facility] Comment on above: Performed By: #### C VDTBH #### [facility] [address] [place] [address] Dr. Deepak Greenfield ALKALINE PHOSPHAon ALP [Catalytic activity/Vol] 46 U/L Normal 46-116 [facility] Comment on above: Performed By: #### C VDTBH #### [facility] [address] [place] [address] Dr. Deepak Greenfield AMMONIAon 01-12-2022 Ammonia (P) [Moles/Vol] 93 umol/L Critically high [facility] Comment on above: Performed By: #### I NFLUAB #### [facility] [address] [place] [address] Dr. Deepak Greenfield BILIRUBIN CONJUGATED (DIRECT )on 01-12-2022 BILI, CONJUGATED 0.1 mg/dL Normal 0.0-0.2 [facility] Comment on above: Performed By: #### C VDTBH #### [facility] [address] [place] [address] Dr. Deepka Greenfield BILIRUBIN TOTALon 01-12-2022 Bilirubin [Mass/Vol] 0.4 mg/dL Normal 0.2-1.0 [facility] Comment on above: Performed By: #### C VDTBH #### [facility] [address] [place] [address] Dr. Deepak Greenfield CBC AUTO DIFFon 01-12-2022 BASO # 0.0 103/ul Normal 0.0-0.1 [facility] Comment on above: Performed By: #### M G, CMP #### [facility] [address] [place] [address] Dr. Deepak Greenfield Basophils/100 WBC (Bld) 0.3 % Normal 0.2-2.0 [facility] Comment on above: Performed By: #### M G, CMP #### [facility] [address] [place] [address] Dr. Deepak Greenfield EO # 0.1 103/ul Normal 0.0-0.7 [facility] Comment on above: Performed By: #### M G, CMP #### [facility] [address] [place] [address] Dr. Deepak Greenfield Eosinophils/100 WBC (Bld) 1.3 % Normal 0.9-7.0 [facility] Comment on above: Performed By: #### M G, CMP #### [facility] [address] [place] [address] Dr. Deepak Greenfield Erythrocyte distribution width (RBC) [Ratio] 14.2 % Normal 11.0-15.0 [facility] Comment on above: Performed By: #### M G, CMP #### [facility] [address] [place] [address] Dr. Deepak Greenfield Hematocrit (Bld) [Volume fraction] 40.4 % Critically low 42.0-54.0 [facility] Comment on above: Performed By: #### M G, CMP #### [facility] [address] [place] [address] Dr. Deepak Greenfield Hemoglobin (Bld) [Mass/Vol] 13.1 g/dL Critically low 14.0-18.0 [facility] Comment on above: Performed By: #### M G, CMP #### [facility] [address] [place] [address] Dr. Deepak Greenfield IG # 0.01 10e3/ul Normal 0.00-0.03 [facility] Comment on above: Performed By: #### M G, CMP #### [facility] [address] [place] [address] Dr. Deepak Greenfield IG % 0.1 % Normal 0.0-0.5 [facility] Comment on above: Performed By: #### M G, CMP #### [facility] [address] [place] [address] Dr. Deepak Greenfield LYMPH # 3.3 103/ul Normal 1.2-3.8 [facility] Comment on above: Performed By: #### M G, CMP #### [facility] [address] [place] [address] Dr. Deepak Greenfield Lymphocytes/100 WBC (Bld) 42.3 % Normal 20.5-60.0 [facility] Comment on above: Performed By: #### M G, CMP #### [facility] [address] [place] [address] Dr. Deepak Greenfield MANUAL DIFF REQ NO Normal [facility] Comment on above: Performed By: #### M G, CMP #### [facility] [address] [place] [address] Dr. Deepak Greenfield MCH (RBC) [Entitic mass] 32.4 pg Normal 25.9-34.0 [facility] Comment on above: Performed By: #### M G, CMP #### [facility] [address] [place] [address] Dr. Deepak Greenfield MCHC (RBC) [Mass/Vol] 32.4 g/dL Normal 29.9-35.2 [facility] Comment on above: Performed By: #### M G, CMP #### [facility] [address] [place] [address] Dr. Deepak Greenfield MCV (RBC) [Entitic vol] 100.0 fL Critically high 80.0-94.0 [facility] Comment on above: Performed By: #### M G, CMP #### [facility] [address] [place] [address] Dr. Deepak Greenfield MONO # 0.6 103/ul Normal 0.3-0.8 [facility] Comment on above: Performed By: #### M G, CMP #### [facility] [address] [place] [address] Dr. Deepak Greenfield Monocytes/100 WBC (Bld) 7.6 % Normal 1.7-12.0 [facility] Comment on above: Performed By: #### M G, CMP #### [facility] [address] [place] [address] Dr. Deepak Greenfield NEUT # 3.8 103/ul Normal 1.4-6.5 [facility] Comment on above: Performed By: #### M G, CMP #### [facility] [address] [place] [address] Dr. Deepak Greenfield Neutrophils/100 WBC (Bld) 48.4 % Normal 43.0-75.0 [facility] Comment on above: Performed By: #### M G, CMP #### [facility] [address] [place] [address] Dr. Deepak Greenfield Platelet mean volume (Bld) [Entitic vol] 9.6 fL Normal 9.5-13.5 [facility] Comment on above: Performed By: #### M G, CMP #### [facility] [address] [place] [address] Dr. Deepak Greenfield PLT 315 103/ul Normal 150-450 [facility] Comment on above: Performed By: #### M G, CMP #### [facility] [address] [place] [address] Dr. Deepak Greenfield RBC 4.04 106/ul Critically low 4.70-6.10 [facility] Comment on above: Performed By: #### M G, CMP #### [facility] [address] [place] [address] Dr. Deepak Greenfield WBC 7.9 103/ul Normal 4.0-11.0 [facility] Comment on above: Performed By: #### M G, CMP #### [facility] [address] [place] [address] Dr. Deepak Greenfield DEPAKENE/VALPROICon 01-13-20 22 DEPAKENE 89.7 ug/ml Normal 50.0-100.0 [facility] Comment on above: Performed By: #### I NFLUAB #### [facility] [address] [place] [address] Dr. Deepak Greenfield PROF CHEM 8 (BAS METB)on Anion gap [Moles/Vol] 12.9 mmol/L Normal [facility] Comment on above: Performed By: #### I NFLUAB #### [facility] [address] [place] [address] Dr. Deepak Greenfield Calcium [Mass/Vol] 8.8 mg/dL Normal 8.5-10.1 [facility] Comment on above: Performed By: #### I NFLUAB #### [facility] [address] [address] [address] Deepak Greenfield Chloride [Moles/Vol] 103 mmol/L Normal 98-107 [facility] Comment on above: Performed By: #### I NFLUAB #### [facility] [address] [address] [address] Deepak Greenfield CO2 [Moles/Vol] 28.1 mmol/L Normal 21.0-32.0 [facility] Comment on above: Performed By: #### I NFLUAB #### [facility] [address] [place] [address] Dr. Deepak Greenfield Creatinine [Mass/Vol] 0.58 mg/dL Critically low 0.70-1.30 [facility] Comment on above: Performed By: #### I NFLUAB #### [facility] [address] [place] [address] Dr. Deepak Greenfield EGFR-AF KAZAKH >60 Normal >=60 [facility] Comment on above: Performed By: #### I NFLUAB #### [facility] [address] [place] [address] Dr. Deepak Greenfield EGFR-NON AF KAZAKH >60 Normal >=60 [facility] Comment on above: Performed By: #### I NFLUAB #### [facility] [address] [address] [address] Deepak Greenfield Glucose [Mass/Vol] 117 mg/dL Critically high 74-106 [facility] Comment on above: Performed By: #### I NFLUAB #### [facility] [address] [address] [address] Deepak Greenfield Potassium [Moles/Vol] 4.0 mmol/L Normal 3.5-5.1 [facility] Comment on above: Performed By: #### I NFLUAB #### [facility] [address] [address] [address] Deepak Greenfield Sodium [Moles/Vol] 140 mmol/L Normal 136-145 [facility] Comment on above: Performed By: #### I NFLUAB #### [facility] [address] [address] [address] Deepak Greenfield Urea nitrogen [Mass/Vol] 7.0 mg/dL Normal 7.0-18.0 [facility] Comment on above: Performed By: #### I NFLUAB #### [facility] [address] [place] [address] Dr. Deepak Greenfiedl Urea nitrogen/Creatinine [Mass ratio] 12.1 mg/mg Normal [facility] Comment on above: Performed By: #### I NFLUAB #### [facility] [address] [place] [address] Dr. Deepak Greenfield SGOTon 01-12-2022 AST [Catalytic activity/Vol] 31 U/L Normal 15-37 [facility] Comment on above: Performed By: #### C VDTBH #### [facility] [address] [place] [address] Dr. Deepak Greenfield SGPTon 01-12-2022 ALT [Catalytic activity/Vol] 48 U/L Normal 16-63 [facility] Comment on above: Performed By: #### C VDTBH #### [facility] [address] [place] [address] Dr. Deepak Greenfield T PROTEIN SERUMon 01-12-2022 Protein [Mass/Vol] 7.3 g/dL Normal 6.4-8.2 [facility] Comment on above: Performed By: #### B MP #### [facility] [address] [place] [address] Dr. Deepak Greenfield XR CHEST 2 Von [...] by: ANICETO CROCKER Date: 2022-01-06 16:15 Normal [facility] Progress Noteson 12-16-2021 [employer] Authentication Interface Message Text ----- Thursday, December 16, 2021 at 12:03:50 PM ----- ----- Provider: [id number] Heriberto Powell Hygienist -- Clinic: [facility] ----- [facility], Pt is ready for tx. Pt presented for dental evaluation for future OR. Caregiver in the room. Patient is non-verbal. Severe intellectual disability, seizure disorder Caregiver stated patient is not pain and no complaining. Radiograph taken today: no possible due to patient behavior Case requested for OR. Guardian mother Katia Lopez. [phone]. [facility] [phone] [id number] [id number] ( [facility] pt's appt) AVS printed and handed flyer for step by step instruction of OR process to Caregiver exam By: Elliott Ham [facility]. OR ----- Signed on Thursday, December 16, 2021 at 12:18:18 PM ----- ----- Provider: [id number] Heriberto Adams DDS -- Clinic: [facility] ----- Normal [facility] [employer] [facility] XR DEXA BONE DENSITYon 11-20 XR [...] by: MARGARITO DAVIES Date: 2021-11-20 11:42 Normal [facility] US SCROTUMon 11-14-2021 US SCROTUM EXAMINATION: [...] KRISTIAN BILLINGS Date: 2021-11-14 07:10 Normal [facility] AMMONIAon 10-31-2021 Ammonia (P) [Moles/Vol] 88 umol/L Critically high 11-32 [facility] Comment on above: Performed By: #### M G, CMP #### [facility] [address] [address] [address] Deepak Greenfield AMMONIAon 10-30-2021 Ammonia (P) [Moles/Vol] 103 umol/L Critically high 11-32 [facility] Comment on above: Result Comment: SPEC IMEN SLIGHTLY HEMOLYZED MAY AFFECT AMM RESULT Performed By: #### I NFLUAB #### [facility] [address] [address] [address] Deepak Greenfield WOUND CULTUREon 10-23-2021 Bacteria identified Aer cx Nom (Unsp spec) Final report Normal [facility] Comment on above: Performed By: #### C XWND #### [facility] [address] [place] [address] Dr. Deepak Greenfield Result 1 Comment Normal [facility] Comment on above: Result Comment: No g rowth in 36 - 48 hours. Performed By: #### C XWND #### [facility] [address] [place] [address] Dr. Deepak Greenfield WOUND CULTUREon 10-02-2021 Bacteria identified Aer cx Nom (Unsp spec) Final report Normal [facility] Comment on above: Performed By: #### A MM #### [facility] [address] [place] [address] Dr. Deepak Greenfield Result 1 Mixed skin omid Normal [facility] Comment on above: Performed By: #### A MM #### [facility] [address] [place] [address] Dr. Deepak Greenfield AMYLASEon 09-22-2021 Amylase [Catalytic activity/Vol] 24 U/L Critically low 25-115 [facility] Comment on above: Performed By: #### C BC #### [facility] [address] [place] [address] Dr. Deepak Greenfield CBC AUTO DIFFon 09-22-2021 BASO # 0.0 103/ul Normal 0.0-0.1 [facility] Comment on above: Performed By: #### C VDTBH #### [facility] [address] [place] [address] Dr. Deepak Greenfield Basophils/100 WBC (Bld) 0.5 % Normal 0.2-2.0 [facility] Comment on above: Performed By: #### C VDTBH #### [facility] [address] [place] [address] Dr. Deepak Greenfield EO # 0.1 103/ul Normal 0.0-0.7 [facility] Comment on above: Performed By: #### C VDTBH #### [facility] [address] [place] [address] Dr. Deepak Greenfield Eosinophils/100 WBC (Bld) 1.3 % Normal 0.9-7.0 [facility] Comment on above: Performed By: #### C VDTBH #### [facility] [address] [place] [address] Dr. Deepak Greenfield Erythrocyte distribution width (RBC) [Ratio] 13.9 % Normal 11.0-15.0 [facility] Comment on above: Performed By: #### C VDTBH #### [facility] [address] [place] [address] Dr. Deepak Greenfield Hematocrit (Bld) [Volume fraction] 40.0 % Critically low 42.0-54.0 [facility] Comment on above: Performed By: #### C VDTBH #### [facility] [address] [place] [address] Dr. Deepak Greenfield Hemoglobin (Bld) [Mass/Vol] 13.0 g/dL Critically low 14.0-18.0 [facility] Comment on above: Performed By: #### C VDTBH #### [facility] [address] [place] [address] Dr. Deepak Greenfield IG # 0.01 10e3/ul Normal 0.00-0.03 [facility] Comment on above: Performed By: #### C VDTBH #### [facility] [address] [place] [address] Dr. Deepak Greenfield IG % 0.2 % Normal 0.0-0.5 [facility] Comment on above: Performed By: #### C VDTBH #### [facility] [address] [place] [address] Dr. Deepak Greenfield LYMPH # 3.0 103/ul Normal 1.2-3.8 [facility] Comment on above: Performed By: #### C VDTBH #### [facility] [address] [place] [address] Dr. Deepak Greenfield Lymphocytes/100 WBC (Bld) 47.9 % Normal 20.5-60.0 [facility] Comment on above: Performed By: #### C VDTBH #### [facility] [address] [place] [address] Dr. Deepak Greenfield MANUAL DIFF REQ NO Normal [facility] Comment on above: Performed By: #### C VDTBH #### [facility] [address] [place] [address] Dr. Deepak Greenfield MCH (RBC) [Entitic mass] 32.9 pg Normal 25.9-34.0 [facility] Comment on above: Performed By: #### C VDTBH #### [facility] [address] [place] [address] Dr. Deepak Greenfield MCHC (RBC) [Mass/Vol] 32.5 g/dL Normal 29.9-35.2 [facility] Comment on above: Performed By: #### C VDTBH #### [facility] [address] [place] [address] Dr. Deepak Greenfield MCV (RBC) [Entitic vol] 101.3 fL Critically high 80.0-94.0 [facility] Comment on above: Performed By: #### C VDTBH #### [facility] [address] [place] [address] Dr. Deepak Greenfield MONO # 0.7 103/ul Normal 0.3-0.8 [facility] Comment on above: Performed By: #### C VDTBH #### [facility] [address] [place] [address] Dr. Deepak Greenfield Monocytes/100 WBC (Bld) 10.3 % Normal 1.7-12.0 [facility] Comment on above: Performed By: #### C VDTBH #### [facility] [address] [place] [address] Dr. Deepak Greenfield NEUT # 2.5 103/ul Normal 1.4-6.5 [facility] Comment on above: Performed By: #### C VDTBH #### [facility] [address] [place] [address] Dr. Deepak Greenfield Neutrophils/100 WBC (Bld) 39.8 % Critically low 43.0-75.0 [facility] Comment on above: Performed By: #### C VDTBH #### [facility] [address] [place] [address] Dr. Deepak Greenfield Platelet mean volume (Bld) [Entitic vol] 10.1 fL Normal 9.5-13.5 [facility] Comment on above: Performed By: #### C VDTBH #### [facility] [address] [place] [address] Dr. Deepak Greenfield PLT 311 103/ul Normal 150-450 [facility] Comment on above: Performed By: #### C VDTBH #### [facility] [address] [place], [place] [address] Dr. Deepak Greenfield RBC 3.95 106/ul Critically low 4.70-6.10 [facility] Comment on above: Performed By: #### C VDTBH #### [facility] [address] [place], [place] [address] Dr. Deepak Greenfield WBC 6.3 103/ul Normal 4.0-11.0 [facility] Comment on above: Performed By: #### C VDTBH #### [facility] [address] [place], [place] [address] ABD/PELV W CONon [...] JAMIE ALICIA Date: 2021-09-22 02:34 Normal [facility] CT HEAD WO CONon 09-22-2021 CT [...] by: BRITTON FONTENOT Date: 2021-09-22 01:13 Normal [facility] LIPASEon 09-22-2021 Lipase [Catalytic activity/Vol] 28.0 U/L Critically low 73.0-393.0 [facility] Comment on above: Performed By: #### C BC #### [facility] [address] [address] [address] Deepak Greenfield PROF 14(COMP METB)on 022 Albumin [Mass/Vol] 3.3 g/dL Critically low 3.4-5.0 [facility] Comment on above: Performed By: #### B MP #### [facility] [address] [place], [place] [address] Dr. Deepak Greenfield Albumin/Globulin [Mass ratio] 0.9 {ratio} Normal [facility] Comment on above: Performed By: #### B MP #### [facility] [address] [address] [address] Deepak Greenfield ALP [Catalytic activity/Vol] 38 U/L Critically low 46-116 [facility] Comment on above: Performed By: #### B MP #### [facility] [address] [place] [address] Dr. Deepak Greenfield ALT [Catalytic activity/Vol] 91 U/L Critically high 16-63 [facility] Comment on above: Performed By: #### B MP #### [facility] [address] [place] [address] Dr. Deepak Greenfield Anion gap [Moles/Vol] 10.2 mmol/L Normal [facility] Comment on above: Performed By: #### B MP #### [facility] [address] [place] [address] Dr. Deepak Greenfield AST [Catalytic activity/Vol] 50 U/L Critically high 15-37 [facility] Comment on above: Performed By: #### B MP #### [facility] [address] [place] [address] Dr. Deepak Greenfield Bilirubin [Mass/Vol] 0.3 mg/dL Normal 0.2-1.0 [facility] Comment on above: Performed By: #### B MP #### [facility] [address] [place] [address] Dr. Deepak Greenfield Calcium [Mass/Vol] 8.6 mg/dL Normal 8.5-10.1 [facility] Comment on above: Performed By: #### B MP #### [facility] [address] [place] [address] Dr. Deepak Greenfield Chloride [Moles/Vol] 106 mmol/L Normal 98-107 [facility] Comment on above: Performed By: #### B MP #### [facility] [address] [place] [address] Dr. Deepak Greenfield CO2 [Moles/Vol] 29.9 mmol/L Normal 21.0-32.0 [facility] Comment on above: Performed By: #### B MP #### [facility] [address] [place] [address] Dr. Deepak Greenfield Creatinine [Mass/Vol] 0.65 mg/dL Critically low 0.70-1.30 [facility] Comment on above: Performed By: #### B MP #### [facility] [address] [address] [address] Deepak Greenfield EGFR-AF KAZAKH >60 Normal >=60 [facility] Comment on above: Performed By: #### B MP #### [facility] [address] [address] [address] Deepak Greenfield EGFR-NON AF KAZAKH >60 Normal >=60 [facility] Comment on above: Performed By: #### B MP #### [facility] [address] [address] [address] Deepak Greenfield Globulin (S) [Mass/Vol] 3.7 g/dL Normal [facility] Comment on above: Performed By: #### B MP #### [facility] [address] [place] [address] Dr. Deepak Greenfield Glucose [Mass/Vol] 105 mg/dL Normal 74-106 [facility] Comment on above: Performed By: #### B MP #### [facility] [address] [address] [address] Deepak Greenfield Potassium [Moles/Vol] 4.1 mmol/L Normal 3.5-5.1 [facility] Comment on above: Performed By: #### B MP #### [facility] [address] [place] [address] Dr. Deepak Greenfield Protein [Mass/Vol] 7.0 g/dL Normal 6.4-8.2 [facility] Comment on above: Performed By: #### B MP #### [facility] [address] [address] [address] Deepak Greenfield Sodium [Moles/Vol] 142 mmol/L Normal 136-145 [facility] Comment on above: Performed By: #### B MP #### [facility] [address] [place] [address] Dr. Deepak Greenfield Urea nitrogen [Mass/Vol] 13.0 mg/dL Normal 7.0-18.0 [facility] Comment on above: Performed By: #### B MP #### [facility] [address] [address] [address] Deepak Greenfield Urea nitrogen/Creatinine [Mass ratio] 20.0 mg/mg Normal [facility] Comment on above: Performed By: #### B MP #### [facility] [address] [address] [address] Deepak Greenfield Vital Signs Date Time Vital Sign Value Performing Clinician Facility 12-16-2022 10:18-0400 Blood Pressure Location Arline Lue [facility] 12-16-2022 10:18-0400 Body temperature 98.06 [degF] Arline Lue [facility] 12-16-2022 10:18-0400 Diastolic blood pressure 78 mm[Hg] Arline Lue [facility] 12-16-2022 10:18-0400 Heart rate 84 /min Arline Lue [facility] 12-16-2022 10:18-0400 Systolic blood pressure 128 mm[Hg] Arline Lue [facility] 12-23-2021 11:30-0400 Body height 157.48 cm Antionette Leonel Other [facility] [employer] Other 12-23-2021 11:30-0400 Body mass index (BMI) [Ratio] 25.79 kg/m2 Antionette Leonel Other [facility] [employer] Other 12-23-2021 11:30-0400 Body temperature 98.5 [degF] Antionette Leonel Other [facility] Other 12-23-2021 11:30-0400 Body weight 63.96 kg Antionette Leonel Other [facility] Other 12-23-2021 11:30-0400 Diastolic blood pressure 70 mm[Hg] Antionette Leonel Other [facility] Other 12-23-2021 11:30-0400 Respiratory rate 20 /min Antionette Leonel Other [facility] Other 12-23-2021 11:30-0400 SaO2% (BldA) [Mass fraction] 99 % Antionette Leonel Other [facility] Other 12-23-2021 11:30-0400 Systolic blood pressure 120 mm[Hg] Antionette Leonel Other [facility] Other 10-22-2021 10:29-0400 Blood Pressure Location Arline Lue [facility] 10-22-2021 10:29-0400 Diastolic blood pressure 92 mm[Hg] Arline Lue [facility] 10-22-2021 10:29-0400 Heart rate 100 /min Arline Lue [facility] 10-22-2021 10:29-0400 Respiratory rate 16 /min Arline Lue [facility] 10-22-2021 10:29-0400 Systolic blood pressure 137 mm[Hg] Arline Lue [facility] Encounters Encounter Date Encounter Type Care Provider Facility Start: 01-05-2023 End: 01-05-2023 ambulatory Antionette Leonel Other [facility] Other Start: 01-05-2023 Office outpatient visit 25 minutes Antionette Leonel [facility] Start: 12-16-2022 End: 12-17-2022 ambulatory Arline SchwarzYulissa Abner Facility:[facility] Start: 12-16-2022 End: 12-16-2022 Patient encounter procedure Arline SchwarzYulissa Messinakaren [facility] Start: 08-04-2022 End: 08-04-[address] FAM VENTURA Facility: Start: 07-29-2022 End: 08-02-2022 Evaluation and management of inpatient DR FAM VENTURA Facility:[facility] Start: 07-26-2022 End: 07-27-[address] FAM VENTURA Facility: Start: 07-23-2022 End: 07-24-2022 ambulatory FAM VENTURA [facility] Start: 07-23-2022 End: 07-23-2022 Patient encounter procedure FAM VENTURA [facility] [place] [facility] Start: 06-23-2022 End: 06-23-2022 ambulatory Antionette Leonel Other [facility] Other Start: 06-23-2022 Office outpatient visit 25 minutes Antionette Leonel [facility] Start: 06-03-2022 End: 06-04-[address] FAM VENTURA Facility:[facility] Start: 05-08-2022 Letter encounter Abundio Mares DDS Work Phone: [facility] Start: 04-22-2022 End: 04-23-[address] FAM [...] 12-23-2021 End: 12-23-2021 ambulatory Antionette Leonel Other [facility] Other Start: 12-23-2021 Office outpatient visit 25 minutes Antionette Leonel [facility] Start: 12-16-2021 End: 12-17-2021 ambulatory UNKNOWN PROVIDER Facility:[facility] Start: 12-16-2021 End: 12-17-2021 Patient encounter procedure Mora Powell [facility] Work Phone: [facility] Start: 12-10-2021 End: 12-10-2021 Patient encounter procedure Arline Levine [facility] Start: 11-20-2021 End: 11-21-[address] FAM VENTURA Facility:[facility] Start: 11-13-2021 End: 11-14-2021 ambulatory ARLINE LEVINE . Facility:[facility] Start: 10-31-2021 End: 11-01-[address] FAM VENTURA Facility:[facility] Start: 10-22-2021 End: 10-22-2021 Patient encounter procedure Arline Levine [facility] Start: 10-21-2021 End: 10-21-[address] FAM VENTURA Facility:[facility] Start: 09-29-2021 End: 09-29-[address] FAM VENTURA Facility:[facility] Start: 09-22-2021 End: 09-22-2021 ambulatory ABBI SANCHEZ Facility:[facility] Plan of Treatment Date Care Activity Detail Author Start: 02-01-2030 Shingles (RZV) Vacci ne (1 of 2) Shingles (RZV) Vaccine (1 of 2) [facility] Start: 01-17-2022 Influenza vaccination Influenza Vacc ine (#1) [facility] Start: 02-01-2015 Lipid panel Cholesterol [facility] Start: 05-20-2012 [id number] Start: 02-01-1998 Hepatitis C screening Hepatitis C An tibody [facility] Start: 02-01-1998 Tetanus + diphtheria + acellular pertussis vaccine (product) Tdap Booster [facility] Start: 02-01-1995 HIV screening HIV Test [facility] th Start: 1980 COVID-19 Vaccine (#1) COVID-19 Vacci ne (#1) [facility] Immunizations Immunization Date Immunization Notes Care Provider [facility] 03-04-2020 pneumococcal conjuga te vaccine, 13 valent Mora Urmetz [facility] Work Phone: [facility] 01-26-2018 influenza, injectabl e, quadrivalent, preservative free Mora Urmetz RD Work Phone: [facility] 01-26-2018 influenza virus vaccine, unspecified formulation Mora Urmetz RD Work Phone: [facility] 02-10-2017 influenza virus vaccine, unspecified formulation Arline Levine [facility] 02-10-2017 influenza, injectabl e, quadrivalent, contains preservative Mora Urmetz RD Work Phone: [facility] 02-07-2015 influenza virus vaccine, unspecified formulation Arline Lue [facility] 02-07-2015 influenza, injectabl e, quadrivalent, preservative free Mora Urmetz RD Work Phone: [facility] 10-23-2014 pneumococcal polysaccharide vaccine, [address] Work Phone: [facility] 12-31-2010 influenza virus vaccine, unspecified formulation Arline Lukaren [facility] 12-31-2010 influenza, seasonal, injectable Mora Urmetz RDH Work Phone: [facility] 03-06-2009 novel [id number], preservative-free, injectable Mora Urmetz RDH Work Phone: [facility] 02-09-2008 influenza virus vaccine, whole virus Mora Urmetz RD Work Phone: [facility] 02-09-2008 influenza, whole Arline Lue [facility] NEGATED: Highlighted row has not occurred!12-10-2021 SARS-CoV-2 mRNA (tozinameran 5y-11y) vaccine Arline Levine [facility] Payers Date Payer Category Payer Medicaid [id number] 2011 Medicare MEDICARE MEDICAR E PART A & B [id number] 2011-Present [address] [place] [address] Medicare [id number] 1980 Unknown [id number] [id number]2 1980 Unknown [id number] 2.16.840.1.922336.3.579.2.593 1980 Unknown [id number] 2.16.840.1.414554.3.579.2.593 1980 Unknown [id number] 2.16.840.1.461818.3.579.2.593 1980 Unknown [id number] 2.16.840.1.299071.3.579.2.593 1980 Unknown [id number] 2.16.840.1.215475.3.579.2.727 1980 Unknown [id number] 2.16.840.1.903766.3.579.2.727 1959 Medicaid [id number] 1959 Medicare [id number] 2.16.840.1.554431.19 1953 Unknown [id number] 2.16.840.1.950388.3.579.2.593 1953 Unknown [id number] 2.16.840.1.184797.3.579.2.593 1953 Unknown [id number] 2.16.840.1.769481.3.579.2.593 1953 Unknown [id number] 2.16.840.1.218055.3.579.2.593 1953 Unknown [id number] 2.16.840.1.194838.3.579.2.593 1953 Unknown [id number] 2.16.840.1.766134.3.579.2.593 1953 Unknown [id number] 2.16.840.1.318395.3.579.2.593 1953 Unknown [id number] 2.16.840.1.004160.3.579.2.593 1953 Unknown [id number] 2.16.840.1.218961.3.579.2.593 1953 Unknown [id number] 2.16.840.1.435794.3.579.2.593 1953 Unknown [id number] 2.16.840.1.457286.3.579.2.593 1953 Unknown [id number] 2.16.840.1.066023.3.579.2.593 1953 Unknown [id number] 2.16.840.1.850095.3.579.2.593 1953 Unknown [id number] 2.16.840.1.417626.3.579.2.593 Social History Date Type Detail Facility Tobacco smoking status No Smoking Status Entered [facility] Sex Assigned At Male [facility] Tobacco smoking status [facility] Tobacco smoking consumption unknown [facility] Start: 1980 [facility] smoking status No Smoking Status Entered [facility] [place] [facility] Start: 12-16-2022 Tobacco smoking status Never smoked tobacco (finding) [facility] Tobacco smoking status Never [facility] Functional Status Date Assessment Result Facility 12-16-2022 Functional Status N/A [facility] 12-10-2021 Functional Status N/A [facility] 10-22-2021 Functional Status N/A [facility] Clinical Notes 10-22-2021 to 01-05-2023 Note Date & Type Note Facility 01-05-2023 Evaluation note Encounter Date Diagnosis Assessment Notes Dec, COPD (chronic obstructive pulmonary disease) (ICD-10 - J44.9) [facility] Other 08-30-2023 Hospital Discharge instructions Patient Education [...] provider. Document Revised: 08/14/2021 Document Reviewed: 08/14/2021 [employer] Patient Education 2022 NERI. Follow Up Care 12/10/2021 11:51:23 With:Abner BYRNE, JUNIOR Hawk, URO Address: When: Unknown Comments:LENORA [facility] Иван 03-07-2023 Evaluation note* Encounter Date Diagnosis Assessment Notes Treatment Notes Treatment Clinical Notes Jun, COPD (chronic obstructive pulmonary disease) (ICD-10 - J44.9) Continue with respiratory regemin, including VEST therapy, as you currently are doing. Call office with respiratory questions or concerns. [facility] Other 09-06-2022 Evaluation note* Encounter Date Diagnosis Assessment Notes Treatment Notes Treatment Clinical Notes Dec, COPD (chronic obstructive pulmonary disease) (ICD-10 - J44.9) Continue with VEST therapy twice a day. Ok to increase to TID if needed. [facility] Other 08-30-2022 NotePt presented today for OR evaluation. Limited eval was completed. Pt's case is not urgent updated contact information and placed Pt on OR list. Step by step process for OR flyer was given to caregiver. Please wait for phone call from OR coordinator.[employer] [id number] Instructions* Patient Instructions * Mora Powell RDH - 12/16/2021 11:57 AM EDT Pt presented today for OR evaluation. Limited eval was completed. Pt's case is not urgent updated contact information and placed Pt on OR list. Step by step process for OR flyer was given to caregiver. Please wait for phone call from OR coordinator. documented in this [id number] History of Present illness Narrative* Mora Powell RDH - 12/16/2021 11:42 AM EDT ----- Wednesday, December 16, 2021 at 12:03:50 PM ----- ----- Provider: [id number] Heriberto Powell Hygienist -- Clinic: [facility] ----- [facility], Pt is ready for tx. Pt presented for dental evaluation for future OR. Caregiver in the room. Patient is non-verbal. Severe intellectual disability, seizure disorder Caregiver stated patient is not pain and no complaining. Radiograph taken today: no possible due to patient behavior Case requested for OR. Guardian mother Katia Lopez. [phone]. [facility] [phone] EXT [id number] ( [facility] pt's appt) AVS printed and handed flyer for step by step instruction of OR process to Caregiver exam By: Elliott Ham [facility] LESLIE. OR ----- Signed on Thursday, December 16, 2021 at 12:18:18 PM ----- ----- Provider: [id number] Heriberto Adams DDS -- Clinic: [facility] ----- documented in this [id number] Hospital Discharge instructions Patient Education 12/10/2021 11:47:35 [...] nerve stimulation). For women, using a medical practice administrator to prevent urine leaks. This is a [...] right after experiencing incontinence. General instructions Take ddoa-pcp-dydswez and prescription medicines only as told by [...] 05/13/2005 Document Revised: 04/15/2018 Document Reviewed: 07/15/2017 [employer] Patient Education 2020 [employer] Follow Up Care 10/22/2021 11:38:20 With:Abner BYRNE, JUNIOR Hawk, URO Address: When:1 year Comments:W/ tammy [place] [facility] 07-06-2022 Hospital Discharge instructions Patient Education 10/22/2021 [...] nerve stimulation). For women, using a medical practice administrator to prevent urine leaks. This is a [...] right after experiencing incontinence. General instructions Take vchc-zum-vkwpqig and prescription medicines only as told by [...] 05/13/2005 Document Revised: 04/15/2018 Document Reviewed: 07/15/2017 [employer] Patient Education 2020 NERI. 10/22/2021 11:42:30 Renal Mass Renal Mass A [...] provider gives to you. In general: Take ujqy-grp-cqrpljb and prescription medicines only as told by [...] 10/31/2014 Document Revised: 05/12/2018 Document Reviewed: 05/12/2018 [employer] Patient Education 2020 NERI. Follow Up Care 09/22/2021 14:10:46 With:Arline Levine MD, URL, URO Address: When:1 month [facility] evaluation + Plan note Future Appointments Appointment Date:11/19/2021 10:00:00 AM Scheduled Provider:Arline Levine MD Location:[facility] Appointment Type:URO Office Visit [facility] evaluation + Plan note Future Appointments Appointment Date:12/16/2022 10:15:00 AM Scheduled Provider:Abner BYRNE, Arline Little Location:[facility] Appointment Type:URO Office Visit [facility] History general Narrative - Reported* Type Description Date Medical History Mental retardation Medical History Seizure Disorder Medical History Tristen Syndrome Medical History ADD Medical History Hypothyroidism Medical History Spastic Quadraparesis Medical History Osteoporosis Medical History Tristen-Beuren syndrome Medical History Seizure disorder Medical History Seizure disorder Medical History COPD Surgical History VNS REPLACED 2021 [facility] Other Hospital course Narrative No data available for this section [facility] Hospital Discharge instructions No data available for this section [facility] No data available for this section [facility] Summary Purpose Family History No Family History Records FoundNo Family History Records FoundNo Family History Records Found Advance Directives No Advanced Directives Records FoundNo Advanced Directives Records FoundNo Advanced Directives Records Found Additional Source Comments Care Team (unrecognized sect ion and content) Carpenter Prototype Relationship Specialty Start Date End Date Radha MaresKETAN leiva [address] [place] [address] Resident Dentistry 02/23/20 Carpenter Prototype Relationship Specialty Start Date End Date VishnuAbundio barron Bassam [address] [place] [address] Resident Dentistry 02/23/20 (unrecognized sect ion and content) No Status Records FoundNo Status Records FoundNo Status Records Found INFORMATION SOURCE (unrecogn ized section and content) DATE CREATED AUTHOR 12/18/2021 [employer] DATE CREATED AUTHOR AUTHOR'S ORGANIZ ATION 08/05/2022 [facility] [facility] DATE CREATED AUTHOR AUTHOR'S ORGANIZ ATION 01/26/2023 [facility] REASON FOR VISIT (unrecogniz ed section [...] BE BASED ON THE PRIMARY CLINICAL RECORDS. [employer] provides no warranty or guarantee of the accuracy or completeness of information in this document.
[2023-05-11 05:24] LABS: PCO2 VBG 40.3 mmHg (40.0-52.0); pH VBG 7.324 (7.330-7.430)
[2023-05-11 05:30] LABS: Basophils Absolute Auto 0.1 10^3/uL (0.0-0.1); Basophils Percent Auto 0.4 % (0.2-2.0); Eosinophils Percent Auto 0.1 % (0.9-7.0); Hematocrit 32.8 % (42.0-54.0); Hemoglobin 10.6 g/dL (14.0-18.0); Immature Granulocytes Abs Auto 0.05 10^3/uL (0.00-0.03); Immature Granulocytes Pct Auto 0.3 % (0.0-0.5); Lymphocytes Absolute Auto 1.1 10^3/uL (1.2-3.8); Mean Corpuscular HGB Conc 32.3 g/dL (29.9-35.2); Mean Corpuscular Hemoglobin 30.8 pg (25.9-34.0); Mean Corpuscular Volume 95.3 fL (80.0-94.0); Mean Platelet Volume 10.8 fL (9.5-13.5); Monocytes Absolute Auto 1.2 10^3/uL (0.3-0.8); Monocytes Percent Auto 7.5 % (1.7-12.0); Neutrophils Absolute Auto 13.1 10^3/uL (1.4-6.5); Neutrophils Percent Auto 84.7 % (43.0-75.0); Platelet Count 277 10^3/uL (150-450); Red Blood Count 3.44 10^6/uL (4.70-6.10); Red Cell Distribution Width 13.1 % (11.0-15.0); White Blood Count 15.4 10^3/uL (4.0-11.0)
[2023-05-11 05:33] LABS: Ammonia 35 umol/L (11-32)
[2023-05-11 05:56] LABS: Alanine Aminotransferase 54 U/L (16-63); Albumin Globulin Ratio 0.8; Albumin Level 2.8 g/dL (3.4-5.0); Alkaline Phosphatase 39 U/L (46-116); Anion Gap 14.8; Aspartate Amino Transferase 58 U/L (15-37); BUN Creatinine Ratio 12.5; Bilirubin Total 0.9 mg/dL (0.2-1.0); Calcium 8.1 mg/dL (8.5-10.1); Carbon Dioxide 22.5 mmol/L (21.0-32.0); Chloride 104 mmol/L (98-107); Estimated GFR (African America >60 (>=60); Estimated GFR (Non-African Ame >60 (>=60); Globulin 3.7 g/dL; Glucose 63 mg/dL (74-106); Potassium 3.3 mmol/L (3.5-5.1); Sodium 138 mmol/L (136-145); Total Protein 6.5 g/dL (6.4-8.2)
[2023-05-11 06:01] LABS: PROCALCITONIN 0.58 ng/mL (0.00-0.50)
[2023-05-11] MEDS: 0.9 % SODIUM CHLORIDE 1,000 ML 125 ML IV (06:25)
[2023-05-11] MEDS: ACETAMINOPHEN 1,000 MG/100 ML PREMIX 400 MG IV ×2 (06:25→18:07)
[2023-05-11] MEDS: LEVOFLOXACIN IN DEXTROSE 5 % 750 MG/150 ML IV.SOLN 100 MG IV (06:30)
[2023-05-11 07:22] LABS: Glucometer 70 mg/dL (74-106)
[2023-05-11] MEDS: DIAZEPAM 10 MG/2 ML SYRINGE 5 MG IM ×2 (07:56→11:59)
[2023-05-11] MEDS: ERTAPENEM SODIUM 1 GM, LIDOCAINE HCL/PF 3.2 ML IM (10:42)
--- NOTE | 2023-05-11 11:03 | RESP.RT ---
patient absolutely would not allow me to place O2 device.
--- NOTE | 2023-05-11 11:23 | P.HP_ITS ---
<Statement entered by Francis Adan MD - 05/11/23 17:00> Patient seen and examined, agree with assessment and plan below. Presented with increased seizures and fever. Found pneumonia and UTI. Noted hypoxia and on supplemental oxygen. Continue levaquin. Increased agitation requiring medication. Diagnosis: 1. Sepsis 2. Pneumonia 3. Acute hypoxic respiratory failure 4. UTI 5. Seizure disorder 6. Hepatic encephalopathy 7. COPD 8. Intellectual disability 9. Cerebral palsy H&P: HPI History of Present Illness Chief complaint: Fever UTI PNEUMONIA SEIZURE Narrative: 05/11/23 1030 This is a 43-year-old male patient with a past medical history as outlined below but significant for advanced MRDD with significant disability (nonverbal and nonambulatory), seizure disorder, dysphagia with frequent admissions for aspiration pneumonia, among others; who presented to the ED via EMS from [facility] where he resides, with complaints of fever and recurrent seizures yesterday afternoon. The pt is unable to provide any history and all information is gleaned from the chart. Fevers and seizures apparently started on the day of presentation. Work up in the Ed revealed bilateral pneumonia on imaging. His temperature was 101.2 on arrival, but quickly demetrio to 102.3 in the ED. Hypoxia of 88% after arrival in the ED. No PE was noted on a CTA chest, but diffuse endobronchial thickening and mucous plugging was noted. A CT of the head was unremarkable. Leukocytosis (15.4) w/ a left shift was noted on labs. A procalcitonin was elevated at 0.58 and is concerning for sepsis. A venous pH was mildly acidotic (7.324) and an ammonia level slightly elevated (35). A UA was suspicious for a UTI w/ leukocyte esterase noted, but staff was unable to obtain a sample large enough to allow a complete UA to be completed. Influenza/COVID swabs were negative. He was admitted as an inpatient to the hospitalist service early this morning. At the time of my exam the pt was resting in bed, mildly agitated but not currently combative. Nursing reports that he has torn out 4 IV sites since admission and has been attempting to hit and kick staff. He is non-verbal at baseline but is not usually combative unless he is ill. Nursing also reports that he will not take any PO medications from them today at all. No seizure activity since arrival on the floor. He has not had any antibiotic administered to date as an IV site could not be maintained long enough to start the antibiotic - even with staff sitting at the bedside. We will convert his antibiotics and anxiolytics to IM preparations if possible. Nursing noted hypoglycemia on AM labs today. Pt is not on antihyperglycemic medications - suspect this is 2/2 sepsis. ADDENDUM 1505: Pt in ICU for 1:1 staffing. He has been placed in soft restraints d/t constant combativeness despite 1:1 staffing and multiple anxiolytic and antipsychotic med administrations. Soft restraints observed in place by this provider and pt is resting more quietly but is still not relaxed. RT in the room is able to administer breathing treatments w/ restraints in place. PICC line nurse will be in to place a PICC as nursing has not been able to maintain his IV and no other peripheral sites available. Anxiolytic and ant ipsychotic doses increased. Hopefully restraints can be removed later tonight. 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) Fever ?R50.9 - Fever, unspecified (ICD-10) Fall ?W19.XXXA - Unspecified fall, initial encounter (ICD-10) GERD (gastroesophageal reflux disease) ?K21.9 - Gastro-esophageal reflux disease without esophagitis (ICD-10) Hyperlipidemia ?E78.5 - Hyperlipidemia, unspecified (ICD-10) BPH (benign prostatic hyperplasia) ?N40.0 - Benign prostatic hyperplasia without lower urinary tract symptoms (ICD-10) Small intestinal bacterial overgrowth ?K63.8219 - Small intestinal bacterial overgrowth, unspecified (ICD-10) 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 - Quadriplegia, unspecified (ICD-10) Excessive salivation ?K11.7 - Disturbances of salivary secretion (ICD-10) Osteoporosis ?M81.0 - Age-related osteoporosis without current pathological fracture (ICD- 10) ADHD ?F90.9 - Attention-deficit hyperactivity disorder, unspecified type (ICD-10) Hypothyroidism ?E03.9 - Hypothyroidism, unspecified (ICD-10) 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 Smoking status: Never smoker Second hand tobacco smoke exposure: No Non-prescribed substance use: denies use Previous occupational history: disable Known occupational exposures/hazards: No Highest level of school completed/degree received: never attended/kindergarten only Do you want help with school or training: No Are you now , , , , never or living with a partner: don't know Life stressors: unknown source of stress Due to disability, difficulty making decisions: No Do you think of yourself as: don't know Gender Identity: other Gender Identity Comment: unable to communicate Meds Home Medications and Allergies Home Medications Medication Instructions Recorded Confirmed Type acetaminophen 325 mg capsule 650 mg PO Q4H PRN fever or pain 10/27/22 05/11/23 History acetaminophen 650 mg rectal 650 mg MN Q4H PRN fever 10/27/22 05/11/23 History suppository alendronate 70 mg tablet 70 mg PO .COMPLEX 10/27/22 05/11/23 History atorvastatin 10 mg tablet 10 mg PO QPM 10/27/22 05/11/23 History budesonide 0.5 mg/2 mL suspension 0.5 mg inhalation BID 10/27/22 05/11/23 History for nebulization cholecalciferol (vitamin D3) 125 125 mcg PO DAILY 10/27/22 05/11/23 History mcg (5,000 unit) capsule clobazam 10 mg tablet 10 mg PO BID 10/27/22 05/11/23 History clonazepam 0.25 mg disintegrating 0.25 mg translingual Q12H PRN as 10/27/22 05/11/23 History 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 diazepam 5 mg-7.5 mg-10 mg rectal 10 mg MN .COMPLEX PRN if 3 or more 10/27/22 05/11/23 History kit seizures in 2hrs docusate sodium 100 mg tablet (DOK) 200 mg PO DAILY 10/27/22 05/11/23 History felbamate 400 mg tablet 400 mg PO TID 10/27/22 05/11/23 History fenofibrate nanocrystallized 145 145 mg PO DAILY 10/27/22 05/11/23 History mg tablet furosemide 20 mg tablet 20 mg PO DAILY 10/27/22 05/11/23 History glycopyrrolate 1 mg tablet 1 mg PO BID 10/27/22 05/11/23 History guaifenesin 400 mg tablet (Chest 400 mg PO BID 10/27/22 05/11/23 History Congestion Relief) ipratropium 0.5 mg-albuterol 3 mg 3 ml inhalation TID 10/27/22 05/11/23 History (2.5 mg base)/3 mL nebulization soln lactulose 10 gram/15 mL oral 60 g PO TID 10/27/22 05/11/23 History solution levetiracetam 500 mg tablet 500 mg PO QPM 10/27/22 05/11/23 History levetiracetam 750 mg tablet 1,500 mg PO BID 10/27/22 05/11/23 History levothyroxine 150 mcg tablet 150 mcg PO DAILY 10/27/22 05/11/23 History linaclotide 145 mcg capsule 145 mcg PO DAILY 10/27/22 05/11/23 History (Linzess) loratadine 10 mg tablet 10 mg PO DAILY 10/27/22 05/11/23 History magnesium oxide 400 mg (241.3 mg 400 mg PO DAILY 10/27/22 05/11/23 History magnesium) tablet montelukast 10 mg tablet 10 mg PO QPM 10/27/22 05/11/23 History omeprazole 40 mg capsule,delayed 40 mg PO DAILY 10/27/22 05/11/23 History release oxcarbazepine 300 mg tablet 300 mg PO BID 10/27/22 05/11/23 History oxcarbazepine 600 mg tablet 600 mg PO BID 10/27/22 05/11/23 History polyethylene glycol 3350 17 17 g PO DAILY 10/27/22 05/11/23 History gram/dose oral powder rifaximin 550 mg tablet (Xifaxan) 550 mg PO BID 10/27/22 05/11/23 History sodium chloride-aloe vera nasal 2 spray intranasal TID dry nasal 10/27/22 05/11/23 History spray ([place] Saline Gel nasal spray) passages tamsulosin 0.4 mg capsule 0.4 mg PO DAILY 10/27/22 05/11/23 History albuterol sulfate 2.5 mg/3 mL 2.5 mg inhalation Q6H PRN 02/11/23 05/11/23 History (0.083 %) solution for nebulization shortness of breath artificial tears with lanolin eye 1 applic ophthalmic (eye) TID PRN 02/11/23 05/11/23 History ointment (Ultra Fresh PM eye dry eye(s) ointment) erythromycin 5 mg/gram (0.5 %) eye 1 applic ophthalmic (eye) TID PRN 02/11/23 05/11/23 History ointment eye irritation sennosides 8.6 mg capsule (senna) 17.2 mg PO BID PRN constipation 02/11/23 05/11/23 History fluticasone propionate 50 2 spray intranasal DAILY 05/11/23 05/11/23 History mcg/actuation nasal spray,suspension (24 Hour Allergy Relief) hydrocortisone 2.5 % topical cream 1 applic topical BID PRN FLARES 05/11/23 05/11/23 History Allergies Allergy/AdvReac Type Severity Reaction Status Date / Time amoxicillin [From Augmentin] Allergy Verified 10/27/22 20:47 clavulanic acid Allergy Verified 10/27/22 20:47 [From Augmentin] Pertussis Vaccines Allergy Verified 10/27/22 20:47 phenytoin [From Dilantin] Allergy Verified 10/27/22 20:47 promethazine [From Phenergan] Allergy Verified 10/27/22 20:47 Exam Narrative Exam Narrative: Pt is non-verbal and non-ambulatory at baseline d/t MRDD Constitutional Vital Signs, click to edit/add: Last Vital Signs Temp 97.6 F 05/11/23 10:43 Pulse 80 05/11/23 10:43 Resp 118 H 05/11/23 10:43 BP 112/78 05/11/23 03:13 Pulse Ox 86 L 05/11/23 11:03 O2 Del Method Room Air 05/11/23 11:03 O2 Flow Rate 94 05/11/23 00:05 Common normals: well nourished Orientation/consciousness: Yes awake HENVA Common normals: normocephalic, head/scalp atraumatic, hearing grossly normal bilaterally, external nose normal and moist oral mucous membranes Eye Common normals: PERRL, conjunctivae normal and no scleral icterus Alignment: alignment normal Eyelid: eyelids normal Neck & C-Spine Common normals: full ROM, supple and no JVD Chest Common normals: inspection of chest normal Chest: symmetrical chest wall rise Respiratory Common normals: no retractions and no use of accessory muscles Effort & inspection: actively coughing loose Auscultation: rhonchi (throughout) Cardio Common normals: no JVD, regular rate, regular rhythm, S1 normal heart sound, S2 normal heart sound, no gallops, no clicks, no murmurs, no rub and peripheral pulses 2+ throughout GI Common normals: Normal to inspection, nondistended, normoactive bowel sounds present, soft to palpation, non-tender, no hepatosplenomegaly, no masses and no bruits Bladder/kidney exam: bladder normal to palpation Back & Pelvis Common normals: thoracic and lumbar spine normal to inspection Extremity Common normals: normal capillary refill General: edema (Trace bilat insteps); no clubbing and no cyanosis Neuro Lucille Coma Scale: GCS not evaluated Common normals: moves all extremities and no focal motor deficits Motor exam: strength 5/5 throughout Psych Common normals: activity/motor behavior normal Memory/cognition: cognition grossly impaired Other: Unable to participate in exam d/t advanced MRDD at baseline Results Labs Labs: Short CBC 05/10/23 05/11/23 Range/Units 16:50 04:27 WBC 15.4 H 15.4 H (4.0-11.0) 10^3/uL Hgb 12.1 L 10.6 L (14.0-18.0) g/dL Hct 37.1 L 32.8 L (42.0-54.0) % Plt Count 301 277 (150-450) 10^3/uL BMP 05/10/23 05/11/23 16:50 04:27 Sodium 134 L 138 Potassium 3.9 3.3 L Chloride 98 104 Carbon Dioxide 26.3 22.5 BUN 8.0 6.0 L Creatinine 0.69 L 0.48 L Glucose 88 63 L Calcium 8.9 8.1 L Liver Function 05/11/23 Range/Units 04:27 Total Bilirubin 0.9 (0.2-1.0) mg/dL AST 58 H (15-37) U/L ALT 54 (16-63) U/L Alkaline Phosphatase 39 L (46-116) U/L Albumin 2.8 L (3.4-5.0) g/dL Urine 05/10/23 Range/Units 23:30 Urine Color Brown A (YELLOW) Urine Clarity Clear (CLEAR) Urine pH 7.0 (5.0-9.0) Ur Specific [place] 1.015 (1.005-1.025) Urine Protein 30 A (NEG/TRACE) mg/dL Urine Glucose (UA) Negative (NEGATIVE) mg/dL ABG ABG results: 05/11/23 04:27 VBG pH 7.324 L VBG pCO2 40.3 Pulse Oximetry Attestation: I have reviewed the pertinent pulse oximetry results. Imaging CTA Chest: Attestation: I have reviewed the pertinent imaging results. Radiologist's impression: IMPRESSION: 1. There is breathing motion artifact contributing to image degradation on this examination. No central pulmonary embolism is identified in the main pulmonary arteries or interlobar segments. The segmental and subsegmental branches are not optimally evaluated due to motion. 2. Patchy some solid airspace opacities in the right upper and left lower lobes concerning for an infectious process. There is also diffuse endobronchial thickening with mucous plugging. 3. Left hilar and mediastinal lymphadenopathy possibly reactive. Chest x-ray: Attestation: I have reviewed the pertinent imaging results. Radiologist's impression: IMPRESSION: Shallow inspiration. No apparent acute infiltrate or overt cardiac decompensation. A follow-up study encouraging the patient to take a deep inspiration in the fully upright position may be helpful. CT scan - head: Attestation: I have reviewed the pertinent imaging results. Radiologist's impression: IMPRESSION: No acute intracranial abnormality. Assessment and Plan Assessment and Plan (1) Sepsis: Assessment and Plan: ACUTE * Adm inpatient * AEB on admission: * SEP1 criteria: T 102.3, HR 103, RR 26, WBC 15.4, Source - Bilat Pneumonia/UTI * SEP3 criteria: qSOFA of 2 (AMS, RR 26), SOFA at least 2 (PF ratio 245, AMS but unable to use GCS to calculate d/t baseline MRDD), Source - Bilat Pneumonia/UTI * Unexplained persistent hyperglycemia - suspect 2/2 sepsis * PO Dextrose PRN * Change IVF to D5.45 once an IV site is obtained * BC x 2 obtained in the ED - pending * IVF once IV site is obtained/maintained * BP stable * PRN valium IM and Haldol x 1 for agitation/combativeness * Low threshold to increase dosing pending clinical course * Repeat CBC, CMP, PCT in AM (2) Pneumonia: Assessment and Plan: ACUTE * RUL, LLL on CTA chest * Levaquin ordered initially but not given as no IV access * Change to IM Invanz w/ lidocaine for broad gram pos/neg/anaerobic coverage w/ known risk for aspiration pneumonia and UTI * Duoneb scheduled and PRN albuterol nebs * BID guaifenisen * sputum culture if able to obtain (3) Acute hypoxic respiratory failure: Assessment and Plan: ACUTE * Hypoxic in ED, and 84% this morning on the med surg floor while refusing to wear oxygen * Multifactorial - acute bilateral pneumonia, mucous plugging * Pneumonia treatment as above * Start Mucomyst nebs once pt is more cooperative * O2 as needed to keep sats above 90% * Consider pulmonology consult pending clinical course (4) UTI (urinary tract infection): Assessment and Plan: ACUTE * UA not fully resulted d/t small sample * Urine culture is processing * Invanz appropriate (5) Hypothyroidism: Assessment and Plan: CHRONIC * Continue home levothyroxine once pt will take PO meds again (6) Hyperlipidemia: Assessment and Plan: CHRONIC * Continue home statin when PO meds are taken (7) BPH (benign prostatic hyperplasia): Assessment and Plan: CHRONIC * Continue home tamsulosin when PO are taken (8) Seizure disorder: Assessment and Plan: CHRONIC * Continue home Keppra once PO meds are taken * Unable to convert to IV currently d/t no IV site. Convert to IV once IV is available * Seizure precautions * Continue home oxcarbazine - only PO preparation available (9) Hepatic encephalopathy: Assessment and Plan: CHRONIC * Continue home lactulose once PO meds are taken * Mildly elevated ammonia in ED (10) Intellectual disability: Assessment and Plan: CHRONIC * Baseline severe MRDD - nonverbal, nonambulatory. Usually pretty cooperative
--- NOTE | 2023-05-11 11:28 | CM.NOTE ---
Rounds made with Dr. Adan, no discharge for pt today. PUNEET Amin is following pt's care. Pt requiring one on one care and will transfer back to ICU as hospital convenience.
[2023-05-11 12:23] LABS: Glucometer 59 mg/dL (74-106)
[2023-05-11] MEDS: DEXTROSE/DEXTRIN/MALTOSE 31 GM GEL.INSTANT GLUCOSE PO (12:32)
[2023-05-11 12:56] LABS: Glucometer 56 mg/dL (74-106)
[2023-05-11] MEDS: HALOPERIDOL LACTATE 5 MG/ML VIAL IM (13:34)
[2023-05-11 14:47] LABS: Glucometer 91 mg/dL (74-106)
[2023-05-11] MEDS: IPRATROPIUM/ALBUTEROL SULFATE 3 ML AMPUL.NEB IH ×2 (14:58→22:04)
[2023-05-11] MEDS: ACETYLCYSTEINE 400 MG/4 ML VIAL 200 MG IH ×2 (15:17→22:04)
[2023-05-11] MEDS: DIAZEPAM 10 MG/2 ML SYRINGE 5 MG IV (15:43)
[2023-05-11] MEDS: DEXTROSE 5 %-0.45 % SOD CHLORD 1,000 ML 150 ML IV ×2 (16:15→23:21)
--- NOTE | 2023-05-11 17:07 | PC.NURSE ---
1128 Assumed care of patient after receiving report from SHIVANI Estes. Patient is currently NPO and last BG checked prior to assuming patient care was recorded at 70. Recheck revealed an even lower BG level, see POC glucose records. Provider notified and orders were given. Oral glucose was administered after receiving orders from Geo Huber NP. Recheck noted to be even lower. Multiple attempts were made to obtain IV access by multiple staff RNs including use of the vein light. Order was given to have midline or PICC inserted. During this time, patient was requiring medications and redirection to keep calm and in bed. After multiple attempts to medicate and redirect patient were unable to be met, restraint order was obtained by Geo Huber NP. Required restraints to prevent injury to self and staff members and they were applied at 1415. Midline was placed at 1605 and at that time IVFs were started. Patient is incontinent of bowel and urine. Pericare was completed and skin cream was ordered and applied to reddened areas. Attempted to perform bedside swallow evaluation. Patient was unable to participate or follow directions at this time. Patient is now resting in bed with bilateral chest rise noted. Call light remains within reach. Will continue to monitor patient and reassess needs for restraints and additional medications.
[2023-05-11 17:41] LABS: Glucometer 95 mg/dL (74-106)
[2023-05-11] MEDS: LEVETIRACETAM 2,000 MG in 0.9 % SODIUM CHLORIDE 100 ML 460 MG IV (18:22)
[2023-05-11 19:23] LABS: Glucometer 143 mg/dL (74-106)
[2023-05-11] MEDS: DIAZEPAM 10 MG RECTAL GEL PR (19:32)
[2023-05-11] MEDS: KETOROLAC TROMETHAMINE 30 MG/ML VIAL 15 MG IVP (21:14)
[2023-05-11] MEDS: BUDESONIDE 0.5 MG/2 ML AMPULE NEB IH (22:04)
[2023-05-12] VITALS (52 sets, daily range): BP systolic 110–123; BP diastolic 59–85; PULSE 66–98; RESP 20–26; TEMP 36.8–38.4; O2SAT 77–100
[2023-05-12] MEDS: ACETAMINOPHEN 1,000 MG/100 ML PREMIX 400 MG IV ×3 (03:00→16:09)
[2023-05-12] MEDS: DEXTROSE 5 %-0.45 % SOD CHLORD 1,000 ML 150 ML IV (06:08)
[2023-05-12] MEDS: DEXTROSE 50 %-WATER 25 GM/50 ML SYRINGE IV (06:38)
[2023-05-12] MEDS: LEVOTHYROXINE 150 MCG TABLET 1 EACH PO (06:39)
[2023-05-12 06:59] LABS: Glucometer 288 mg/dL (74-106)
[2023-05-12 07:40] LABS: Adenovirus NOT DETECTED (NOT DETECTE); Bordetella parapertussis NOT DETECTED (NOT DETECTE); Coronavirus 229E NOT DETECTED (NOT DETECTE); Coronavirus HKU1 NOT DETECTED (NOT DETECTE); Coronavirus NL63 NOT DETECTED (NOT DETECTE); Coronavirus OC43 NOT DETECTED (NOT DETECTE); Human Metapneumovirus NOT DETECTED (NOT DETECTE); Human Rhinovirus/Enterovirus NOT DETECTED (NOT DETECTE); Influenza A NOT DETECTED (NOT DETECTE); Influenza B NOT DETECTED (NOT DETECTE); Mycoplasma pneumoniae NOT DETECTED (NOT DETECTE); Parainfluenza Virus 1 NOT DETECTED (NOT DETECTE); Parainfluenza Virus 2 NOT DETECTED (NOT DETECTE); Parainfluenza Virus 3 NOT DETECTED (NOT DETECTE); Parainfluenza Virus 4 NOT DETECTED (NOT DETECTE); SARS-CoV-2 NOT DETECTED (NOT DETECTE)
[2023-05-12 08:12] LABS: PROCALCITONIN 0.76 ng/mL (0.00-0.50)
[2023-05-12 08:17] LABS: Basophils Absolute Auto 0.1 10^3/uL (0.0-0.1); Basophils Percent Auto 0.7 % (0.2-2.0); Eosinophils Absolute Auto 0.2 10^3/uL (0.0-0.7); Hematocrit 31.3 % (42.0-54.0); Hemoglobin 10.4 g/dL (14.0-18.0); Immature Granulocytes Abs Auto 0.02 10^3/uL (0.00-0.03); Immature Granulocytes Pct Auto 0.3 % (0.0-0.5); Lymphocytes Absolute Auto 1.1 10^3/uL (1.2-3.8); Lymphocytes Percent Auto 13.9 % (20.5-60.0); Mean Corpuscular HGB Conc 33.2 g/dL (29.9-35.2); Mean Corpuscular Hemoglobin 31.6 pg (25.9-34.0); Mean Corpuscular Volume 95.1 fL (80.0-94.0); Mean Platelet Volume 10.7 fL (9.5-13.5); Monocytes Absolute Auto 0.8 10^3/uL (0.3-0.8); Monocytes Percent Auto 10.7 % (1.7-12.0); Neutrophils Absolute Auto 5.5 10^3/uL (1.4-6.5); Neutrophils Percent Auto 71.4 % (43.0-75.0); Platelet Count 237 10^3/uL (150-450); Red Blood Count 3.29 10^6/uL (4.70-6.10); Red Cell Distribution Width 13.1 % (11.0-15.0); White Blood Count 7.7 10^3/uL (4.0-11.0)
[2023-05-12 08:29] LABS: Sodium 139 mmol/L (136-145)
[2023-05-12 08:30] LABS: Alanine Aminotransferase 65 U/L (16-63); Albumin Globulin Ratio 0.7; Albumin Level 2.3 g/dL (3.4-5.0); Alkaline Phosphatase 33 U/L (46-116); Aspartate Amino Transferase 74 U/L (15-37); BUN Creatinine Ratio 7.3; Bilirubin Total 0.5 mg/dL (0.2-1.0); Calcium 7.8 mg/dL (8.5-10.1); Chloride 100 mmol/L (98-107); Estimated GFR (African America >60 (>=60); Estimated GFR (Non-African Ame >60 (>=60); Globulin 3.3 g/dL; Glucose 157 mg/dL (74-106); Total Protein 5.6 g/dL (6.4-8.2)
[2023-05-12] MEDS: IPRATROPIUM/ALBUTEROL SULFATE 3 ML AMPUL.NEB IH ×3 (09:06→20:03)
[2023-05-12] MEDS: ACETYLCYSTEINE 400 MG/4 ML VIAL 200 MG IH ×3 (09:06→20:03)
[2023-05-12] MEDS: BUDESONIDE 0.5 MG/2 ML AMPULE NEB IH ×2 (09:06→20:03)
[2023-05-12 09:10] LABS: Respiratory Syncytial Virus DETECTED (NOT DETECTE)
[2023-05-12] MEDS: LEVETIRACETAM 1,500 MG in 0.9 % SODIUM CHLORIDE 100 ML 460 MG IV (10:10)
[2023-05-12] MEDS: RIFAXIMIN 550 MG TABLET PO ×2 (10:32→20:38)
[2023-05-12] MEDS: OMEPRAZOLE 40 MG CAPSULE.DR PO (10:33)
[2023-05-12] MEDS: OXcarbazepine 300 MG TABLET 900 MG PO (10:35)
[2023-05-12] MEDS: TAMSULOSIN HCL 0.4 MG CAPSULE PO (10:36)
[2023-05-12] MEDS: GUAIFENESIN 600 MG TAB.ER.12H PO (10:38)
--- NOTE | 2023-05-12 11:34 | CM.NOTE ---
Rounds made with Dr. Adan, no discharge today.
[2023-05-12] MEDS: ERTAPENEM SODIUM 1 GM in 0.9 % SODIUM CHLORIDE 50 ML IV (11:54)
--- NOTE | 2023-05-12 12:38 | P.PN_ITS ---
<Statement entered by Francis Adan MD - 05/12/23 18:59> Patient seen and examined, agree with assessment and plan below. Agitation improved and more interactive this am. Continues to have fever. RSV positive. Labs stable. BP improved. Diagnosis: 1. Sepsis 2. RSV Pneumonia 3. Acute hypoxic respiratory failure 4. UTI 5. Seizure disorder 6. Hepatic encephalopathy 7. COPD 8. Intellectual disability 9. Cerebral palsy Progress Note: Subjective Subjective Interval history: 05/12/23 1020 The patient is resting in bed quietly at the time of my exam. He is much more awake and alert today and does yell out single words occasionally. As per his baseline mentation he is unable to cooperate with exam. Although he is not as combative, he continues to try to remove his IV site which is critical for his care at this time. We will continue with soft restraints and monitor his condition closely. He appears to be tolerating these well. He continued to have fevers overnight with a Tmax early this morning of 102.5. A full respiratory panel was obtained this morning and it was positive for RSV which is the likely cause of his pneumonia. However, we cannot rule out secondary bacterial pneumonia especially in light of an elevated procalcitonin. We will continue with Invanz for broad gram positive, negative, and anaerobic coverage due to the patient's history of aspiration pneumonia in the past. We also initiated Mucomyst treatments yesterday afternoon in hopes of mobilizing mucous plugging noted on a CTA of the chest on 05/11/2023. Nursing will keep attempting to administer PO meds to the pt. He has refused to date. Exam Constitutional Vital Signs, click to edit/add: Last Vital Signs Temp 98.2 F 05/12/23 06:00 Pulse 66 05/12/23 09:10 Resp 20 05/12/23 08:00 BP 120/59 05/12/23 06:00 Pulse Ox 94 L 05/12/23 09:10 O2 Del Method Room Air 05/12/23 09:10 O2 Flow Rate 2 05/11/23 23:00 Common normals: no apparent distress and alert Orientation/consciousness: Yes awake HENMT Common normals: normocephalic, head/scalp atraumatic and hearing grossly normal bilaterally Eye Common normals: PERRL, EOMs intact bilaterally, conjunctivae normal and no scle ral icterus Chest Common normals: inspection of chest normal Chest: symmetrical chest wall rise Respiratory Common normals: normal respiratory effort and no use of accessory muscles Auscultation: rhonchi (Scattered throughout, improved from admission) Other: Frequent loose cough Cardio Common normals: regular rate, regular rhythm, S1 normal heart sound, S2 normal heart sound, no murmurs and peripheral pulses 2+ throughout GI Common normals: Normal to inspection, nondistended, normoactive bowel sounds p resent, soft to palpation, non-tender and no hepatosplenomegaly Bladder/kidney exam: bladder normal to palpation Extremity Common normals: normal to inspection and no calf tenderness General: no clubbing, no cyanosis and no edema Neuro Common normals: CN's II-XII intact bilaterally and moves all extremities Psych Other: Non-verbal except occasional one-word responses and non-ambulatory at baseline Progress Note: Objective Labs Labs: Short CBC 05/12/23 Range/Units 04:14 WBC 7.7 (4.0-11.0) 10^3/uL Hgb 10.4 L (14.0-18.0) g/dL Hct 31.3 L (42.0-54.0) % Plt Count 237 (150-450) 10^3/uL BMP 05/12/23 04:14 Sodium 139 Potassium 3.0 L Chloride 100 Carbon Dioxide 29.0 BUN 4.0 L Creatinine 0.55 L Glucose 157 H Calcium 7.8 L Liver Function 05/12/23 Range/Units 04:14 Total Bilirubin 0.5 (0.2-1.0) mg/dL AST 74 H (15-37) U/L ALT 65 H (16-63) U/L Alkaline Phosphatase 33 L (46-116) U/L Albumin 2.3 L (3.4-5.0) g/dL Progress Note: A&P Assessment and Plan (1) Sepsis: Assessment and Plan: ACUTE * Improving * BP stable * Mentation improved * Hypoxia resolving * Hypoglycemia resolving * PCT continues trending up - 0.76 on morning labs * RSV + on Resp panel today. Clinically suspect secondary bacterial pneumonia as well * Unexplained persistent hypoglycemia - suspect 2/2 sepsis * Resolving * PO Dextrose PRN * Continue D5.45 IVF at reduced rate - hyperglycemia noted today on labs * BC x 2 obtained in the ED - pending * BP stable * PRN IVP valium and Haldol for agitation/combativeness * Low threshold to increase dosing pending clinical course * Soft restraints in place * Repeat CBC, CMP, PCT in AM * AEB on admission: * SEP criteria: T 102.3, HR 103, RR 26, WBC 15.4, Source - Bilat Pneumonia/UTI * SEP3 criteria: qSOFA of 2 (AMS, RR 26), SOFA at least 2 (PF ratio 245, AMS but unable to use GCS to calculate d/t baseline MRDD), Source - Bilat Pneumonia/UTI Qualifiers: Sepsis type: sepsis due to unspecified organism Sepsis acute organ dysfunction status: with acute organ dysfunction Severe sepsis acute organ dysfunction type: acute respiratory failure Acute respiratory failure type: with hypoxia Severe sepsis shock status: without septic shock Qualified Code(s): A41.9 - Sepsis, unspecified organism; R65.20 - Severe sepsis without septic shock; J96.01 - Acute respiratory failure with hypoxia (2) Pneumonia: Assessment and Plan: ACUTE * RUL, LLL on CTA chest * RSV + today on full resp panel. * Suspect secondary bacterial infection w/ rising procalcitonin * Continue Invanz IVPB (can give IM if IV site is lost) for broad gram pos/neg/anaerobic coverage w/ known risk for aspiration pneumonia and UTI * Duoneb scheduled and PRN albuterol nebs * BID guaifenisen * sputum culture if able to obtain - not obtained to date Qualifiers: Pneumonia type: due to unspecified organism Laterality: bilateral Lung location: unspecified part of lung Qualified Code(s): J18.9 - Pneumonia, unspecified organism (3) Acute hypoxic respiratory failure: Assessment and Plan: ACUTE * Resolving * Weaned off O2 supplementation most of the night and remains on RA today * Hypoxic in ED, and 84% this morning on the med surg floor while refusing to wear oxygen * Multifactorial - acute bilateral pneumonia, mucous plugging * Pneumonia treatment as above * Continue Mucomyst nebs - pt tolerating well * O2 as needed to keep sats above 90% * Consider pulmonology consult pending clinical course (4) UTI (urinary tract infection): Assessment and Plan: ACUTE * Suspected - UA not fully resulted d/t small sample * Urine culture is processing * Invanz appropriate - continue (5) Hypothyroidism: Assessment and Plan: CHRONIC * Continue home levothyroxine once pt will take PO meds again (6) Hyperlipidemia: Assessment and Plan: CHRONIC * Continue home statin when PO meds are taken (7) BPH (benign prostatic hyperplasia): Assessment and Plan: CHRONIC * Continue home tamsulosin when PO meds are taken (8) Seizure disorder: Assessment and Plan: CHRONIC * Nursing suspected a brief focal seizure last night, but no tonic-clonic seizure acitivity since admission * Continue IVPB Keppra for now pending ability to take PO meds again * Continue home Keppra once PO meds are taken * Seizure precautions * Continue home oxcarbazine once able to take - only PO preparation available * PRN IVP ativan for breakthrough seizures (9) Hepatic encephalopathy: Assessment and Plan: CHRONIC * Continue home lactulose once PO meds are taken * Mildly elevated ammonia in ED (10) Intellectual disability: Assessment and Plan: CHRONIC * Baseline severe MRDD - nonverbal (occ single words), nonambulatory. Usually pretty cooperative * PRN IVP Haldol and Diazepam for agitation combativeness
--- NOTE | 2023-05-12 12:38 | PM.PN ---
Progress Note: Subjective Subjective Interval history: 05/12/23 1020 The patient is resting in bed quietly at the time of my exam. He is much more awake and alert today and does yell out single words occasionally. As per his baseline mentation he is unable to cooperate with exam. Although he is not as combative, he continues to try to remove his IV site which is critical for his care at this time. We will continue with soft restraints and monitor his condition closely. He appears to be tolerating these well. He continued to have fevers overnight with a Tmax early this morning of 102.5. A full respiratory panel was obtained this morning and it was positive for RSV which is the likely cause of his pneumonia. However, we cannot rule out secondary bacterial pneumonia especially in light of an elevated procalcitonin. We will continue with Invanz for broad gram positive, negative, and anaerobic coverage due to the patient's history of aspiration pneumonia in the past. We also initiated Mucomyst treatments yesterday afternoon in hopes of mobilizing mucous plugging noted on a CTA of the chest on 05/11/2023. Nursing will keep attempting to administer PO meds to the pt. He has refused to date. Exam Constitutional Vital Signs, click to edit/add: Last Vital Signs Temp 98.2 F 05/12/23 06:00 Pulse 66 05/12/23 09:10 Resp 20 05/12/23 08:00 BP 120/59 05/12/23 06:00 Pulse Ox 94 L 05/12/23 09:10 O2 Del Method Room Air 05/12/23 09:10 O2 Flow Rate 2 05/11/23 23:00 Common normals: no apparent distress and alert Orientation/consciousness: Yes awake [facility] Common normals: normocephalic, head/scalp atraumatic and hearing grossly normal bilaterally Eye Common normals: PERRL, EOMs intact bilaterally, conjunctivae normal and no scleral icterus Chest Common normals: inspection of chest normal Chest: symmetrical chest wall rise Respiratory Common normals: normal respiratory effort and no use of accessory muscles Auscultation: rhonchi (Scattered throughout, improved from admission) Other: Frequent loose cough Cardio Common normals: regular rate, regular rhythm, S1 normal heart sound, S2 normal heart sound, no murmurs and peripheral pulses 2+ throughout GI Common normals: Normal to inspection, nondistended, normoactive bowel sounds present, soft to palpation, non-tender and no hepatosplenomegaly Bladder/kidney exam: bladder normal to palpation Extremity Common normals: normal to inspection and no calf tenderness General: no clubbing, no cyanosis and no edema Neuro Common normals: CN's II-XII intact bilaterally and moves all extremities Psych Other: Non-verbal except occasional one-word responses and non-ambulatory at baseline Progress Note: Objective Labs Labs: Short CBC 05/12/23 Range/Units 04:14 WBC 7.7 (4.0-11.0) 10^3/uL Hgb 10.4 L (14.0-18.0) g/dL Hct 31.3 L (42.0-54.0) % Plt Count 237 (150-450) 10^3/uL BMP 05/12/23 04:14 Sodium 139 Potassium 3.0 L Chloride 100 Carbon Dioxide 29.0 BUN 4.0 L Creatinine 0.55 L Glucose 157 H Calcium 7.8 L Liver Function 05/12/23 Range/Units 04:14 Total Bilirubin 0.5 (0.2-1.0) mg/dL AST 74 H (15-37) U/L ALT 65 H (16-63) U/L Alkaline Phosphatase 33 L (46-116) U/L Albumin 2.3 L (3.4-5.0) g/dL Progress Note: A&P Assessment and Plan (1) Sepsis: Assessment and Plan: ACUTE Improving BP stable Mentation improved Hypoxia resolving Hypoglycemia resolving PCT continues trending up - 0.76 on morning labs RSV + on Resp panel today. Clinically suspect secondary bacterial pneumonia as well Unexplained persistent hypoglycemia - suspect 2/2 sepsis Resolving PO Dextrose PRN Continue D5.45 IVF at reduced rate - hyperglycemia noted today on labs BC x 2 obtained in the ED - pending BP stable PRN IVP valium and Haldol for agitation/combativeness Low threshold to increase dosing pending clinical course Soft restraints in place Repeat CBC, CMP, PCT in AM AEB on admission: SEP1 criteria: T 102.3, HR 103, RR 26, WBC 15.4, Source - Bilat Pneumonia/UTI SEP3 criteria: qSOFA of 2 (AMS, RR 26), SOFA at least 2 (PF ratio 245, AMS but unable to use GCS to calculate d/t baseline MRDD), Source - Bilat Pneumonia/UTI Qualifiers: Sepsis type: sepsis due to unspecified organism Sepsis acute organ dysfunction status: with acute organ dysfunction Severe sepsis acute organ dysfunction type: acute respiratory failure Acute respiratory failure type: with hypoxia Severe sepsis shock status: without septic shock Qualified Code(s): A41.9 - Sepsis, unspecified organism; R65.20 - Severe sepsis without septic shock; J96.01 - Acute respiratory failure with hypoxia (2) Pneumonia: Assessment and Plan: ACUTE RUL, LLL on CTA chest RSV + today on full resp panel. Suspect secondary bacterial infection w/ rising procalcitonin Continue Invanz IVPB (can give IM if IV site is lost) for broad gram pos/neg/anaerobic coverage w/ known risk for aspiration pneumonia and UTI Duoneb scheduled and PRN albuterol nebs BID guaifenisen sputum culture if able to obtain - not obtained to date Qualifiers: Pneumonia type: due to unspecified organism Laterality: bilateral Lung location: unspecified part of lung Qualified Code(s): J18.9 - Pneumonia, unspecified organism (3) Acute hypoxic respiratory failure: Assessment and Plan: ACUTE Resolving Weaned off O2 supplementation most of the night and remains on RA today Hypoxic in ED, and 84% this morning on the med surg floor while refusing to wear oxygen Multifactorial - acute bilateral pneumonia, mucous plugging Pneumonia treatment as above Continue Mucomyst nebs - pt tolerating well O2 as needed to keep sats above 90% Consider pulmonology consult pending clinical course (4) UTI (urinary tract infection): Assessment and Plan: ACUTE Suspected - UA not fully resulted d/t small sample Urine culture is processing Invanz appropriate - continue (5) Hypothyroidism: Assessment and Plan: CHRONIC Continue home levothyroxine once pt will take PO meds again (6) Hyperlipidemia: Assessment and Plan: CHRONIC Continue home statin when PO meds are taken (7) BPH (benign prostatic hyperplasia): Assessment and Plan: CHRONIC Continue home tamsulosin when PO meds are taken (8) Seizure disorder: Assessment and Plan: CHRONIC Nursing suspected a brief focal seizure last night, but no tonic-clonic seizure acitivity since admission Continue IVPB Keppra for now pending ability to take PO meds again Continue home Keppra once PO meds are taken Seizure precautions Continue home oxcarbazine once able to take - only PO preparation available PRN IVP ativan for breakthrough seizures (9) Hepatic encephalopathy: Assessment and Plan: CHRONIC Continue home lactulose once PO meds are taken Mildly elevated ammonia in ED (10) Intellectual disability: Assessment and Plan: CHRONIC Baseline severe MRDD - nonverbal (occ single words), nonambulatory. Usually pretty cooperative PRN IVP Haldol and Diazepam for agitation combativeness
[2023-05-12] MEDS: DEXTROSE 5 %-0.45 % SOD CHLORD 1,000 ML 100 ML IV ×2 (13:34→20:33)
[2023-05-12] MEDS: POTASSIUM CHLORIDE 40 MEQ in 0.9 % SODIUM CHLORIDE 250 ML 67.5 MEQ IV (13:35)
[2023-05-12] MEDS: LACTOSE -REDUCED (ENSURE ORIGINAL 237 ML LIQUID) PO (14:12)
[2023-05-12] MEDS: DIAZEPAM 10 MG/2 ML SYRINGE IM (18:30)
[2023-05-12] MEDS: KETOROLAC TROMETHAMINE 30 MG/ML VIAL IVP (18:30)
[2023-05-12] MEDS: LEVETIRACETAM 2,000 MG in 0.9 % SODIUM CHLORIDE 100 ML 460 MG IV (20:33)
[2023-05-12] MEDS: OXCARBAZEPINE 600 MG TABLET 1 EACH PO (20:37)
[2023-05-12] MEDS: OXcarbazepine 300 MG TABLET PO (20:38)
[2023-05-12 20:55] LABS: Potassium 3.6 mmol/L (3.5-5.1)
[2023-05-13] VITALS (20 sets, daily range): BP systolic 114–147; BP diastolic 68–91; PULSE 87–104; RESP 20–26; TEMP 36.6–38.6; O2SAT 83–96
[2023-05-13] MEDS: KETOROLAC TROMETHAMINE 30 MG/ML VIAL IVP (04:27)
[2023-05-13] MEDS: LEVOTHYROXINE 150 MCG TABLET 1 EACH PO (06:49)
[2023-05-13] MEDS: BUDESONIDE 0.5 MG/2 ML AMPULE NEB IH ×2 (08:53→20:01)
[2023-05-13] MEDS: IPRATROPIUM/ALBUTEROL SULFATE 3 ML AMPUL.NEB IH ×3 (08:53→20:01)
[2023-05-13] MEDS: ACETYLCYSTEINE 400 MG/4 ML VIAL 200 MG IH ×3 (08:54→20:02)
[2023-05-13] MEDS: OXCARBAZEPINE 600 MG TABLET 1 EACH PO ×2 (09:16→20:07)
[2023-05-13] MEDS: OXcarbazepine 300 MG TABLET PO ×2 (09:17→20:07)
[2023-05-13] MEDS: OMEPRAZOLE 40 MG CAPSULE.DR PO (09:17)
[2023-05-13] MEDS: TAMSULOSIN HCL 0.4 MG CAPSULE PO (09:18)
[2023-05-13] MEDS: RIFAXIMIN 550 MG TABLET PO ×2 (09:18→20:07)
[2023-05-13] MEDS: DOCUSATE SODIUM 100 MG CAPSULE 200 MG PO (09:21)
[2023-05-13] MEDS: POLYETHYLENE GLYCOL 3350 17 GM POWDER PACKET PO (09:21)
[2023-05-13 09:37] LABS: Basophils Percent Auto 0.4 % (0.2-2.0); Eosinophils Absolute Auto 0.1 10^3/uL (0.0-0.7); Eosinophils Percent Auto 1.8 % (0.9-7.0); Hematocrit 31.5 % (42.0-54.0); Hemoglobin 10.3 g/dL (14.0-18.0); Immature Granulocytes Abs Auto 0.03 10^3/uL (0.00-0.03); Immature Granulocytes Pct Auto 0.4 % (0.0-0.5); Lymphocytes Absolute Auto 1.5 10^3/uL (1.2-3.8); Lymphocytes Percent Auto 22.3 % (20.5-60.0); Mean Corpuscular HGB Conc 32.7 g/dL (29.9-35.2); Mean Corpuscular Hemoglobin 30.9 pg (25.9-34.0); Mean Corpuscular Volume 94.6 fL (80.0-94.0); Mean Platelet Volume 10.2 fL (9.5-13.5); Monocytes Absolute Auto 0.7 10^3/uL (0.3-0.8); Neutrophils Absolute Auto 4.4 10^3/uL (1.4-6.5); Neutrophils Percent Auto 65.1 % (43.0-75.0); Platelet Count 289 10^3/uL (150-450); Red Blood Count 3.33 10^6/uL (4.70-6.10); White Blood Count 6.7 10^3/uL (4.0-11.0)
[2023-05-13 09:49] LABS: Alanine Aminotransferase 83 U/L (16-63); Albumin Globulin Ratio 0.7; Albumin Level 2.3 g/dL (3.4-5.0); Alkaline Phosphatase 45 U/L (46-116); Anion Gap 9.4; Aspartate Amino Transferase 90 U/L (15-37); BUN Creatinine Ratio 1.9; Bilirubin Total 0.4 mg/dL (0.2-1.0); Blood Urea Nitrogen <1.0 mg/dL (7.0-18.0); Calcium 8.3 mg/dL (8.5-10.1); Chloride 106 mmol/L (98-107); Estimated GFR (African America >60 (>=60); Estimated GFR (Non-African Ame >60 (>=60); Globulin 3.4 g/dL; Glucose 145 mg/dL (74-106); Potassium 3.4 mmol/L (3.5-5.1); Sodium 141 mmol/L (136-145); Total Protein 5.7 g/dL (6.4-8.2)
[2023-05-13] MEDS: LEVETIRACETAM 1,500 MG in 0.9 % SODIUM CHLORIDE 100 ML 460 MG IV (10:04)
[2023-05-13] MEDS: LACTULOSE 10 GM/15 ML (237ML) SOLUTION 60 GM PO (10:04)
[2023-05-13] MEDS: DEXTROSE 5 %-0.45 % SOD CHLORD 1,000 ML 100 ML IV (10:04)
[2023-05-13] MEDS: LACTOSE -REDUCED (ENSURE ORIGINAL 237 ML LIQUID) PO (10:05)
[2023-05-13 10:20] LABS: PROCALCITONIN 4.35 ng/mL (0.00-0.50)
--- NOTE | 2023-05-13 10:23 | P.PN_ITS ---
<Statement entered by Francis Adan MD - 05/13/23 18:39> Patient seen and examined, agree with assessment and plan below. Agitation improved and much more interactive this am. Continues to have fever. Labs stable. BP improved. Diagnosis: 1. Sepsis 2. RSV Pneumonia 3. Acute hypoxic respiratory failure 4. UTI 5. Seizure disorder 6. Hepatic encephalopathy 7. COPD 8. Intellectual disability 9. Cerebral palsy Progress Note: Subjective Subjective Interval history: 05/13/23 1020 The patient is significantly improved this morning at the time of my exam. He is awake and alert and pleasantly cooperative within the limits of his cognitive abilities. Nursing reports that he continues to attempt to pull out his midline, so soft restraints will remain in place to allow for necessary medical interventions. The patient appears to be tolerating these well and does not find them very frustrating or painful. Loose rhonchi continue on respiratory exam, but improved since admission. He has been stable on RA x 24 hrs. Discharge likely in the next 24 to 48 hours. Exam Narrative Exam Narrative: Pt awake and alert today. Smiles pleasantly. Unable to cooperate w/ exam d/t baseline mentation but is not combative or resistive. One word responses, not appropriate to question - Baseline. Still attempting to pull at lines that are medically necessary for treatment. Soft restraints to remain in place at this time. CMS to bilat hand is intact. Constitutional Vital Signs, click to edit/add: Last Vital Signs Temp 98.4 F 05/13/23 06:38 Pulse 91 H 05/13/23 09:16 Resp 26 H 05/13/23 06:38 BP 114/68 05/13/23 06:00 Pulse Ox 91 L 05/13/23 09:16 O2 Del Method Room Air 05/13/23 09:16 O2 Flow Rate 2 05/11/23 23:00 Common normals: no apparent distress and alert Exam limitations: behavioral limitations (Advanced MRDD) General appearance: cooperative Orientation/consciousness: Yes awake HENMT Common normals: normocephalic, head/scalp atraumatic and hearing grossly normal bilaterally Eye Common normals: PERRL, EOMs intact bilaterally, conjunctivae normal and no scleral icterus General eye: normal appearance of both eyes Chest Common normals: inspection of chest normal Chest: symmetrical chest wall rise Respiratory Common normals: normal respiratory effort and no use of accessory muscles Effort & inspection: able to speak in complete sentences Auscultation: rhonchi (RUL, RML - improved) Cardio Common normals: regular rate, regular rhythm, S1 normal heart sound, S2 normal heart sound, no murmurs and peripheral pulses 2+ throughout GI Common normals: Normal to inspection, nondistended, normoactive bowel sounds present, soft to palpation, non-tender and no hepatosplenomegaly Bladder/kidney exam: bladder normal to palpation Extremity Common normals: normal to inspection and no calf tenderness General: no clubbing, no cyanosis and no edema Neuro Common normals: CN's II-XII intact bilaterally and moves all extremities Progress Note: Objective Labs Labs: Short CBC 05/13/23 Range/Units 09:05 WBC 6.7 (4.0-11.0) 10^3/uL Hgb 10.3 L (14.0-18.0) g/dL Hct 31.5 L (42.0-54.0) % Plt Count 289 (150-450) 10^3/uL BMP 05/12/23 05/13/23 20:10 09:05 Sodium 141 Potassium 3.6 3.4 L Chloride 106 Carbon Dioxide 29.0 BUN <1.0 L Creatinine 0.52 L Glucose 145 H Calcium 8.3 L Liver Function 05/13/23 Range/Units 09:05 Total Bilirubin 0.4 (0.2-1.0) mg/dL AST 90 H (15-37) U/L ALT 83 H (16-63) U/L Alkaline Phosphatase 45 L (46-116) U/L Albumin 2.3 L (3.4-5.0) g/dL Progress Note: A&P Assessment and Plan (1) Sepsis: Assessment and Plan: ACUTE * Resolving * BP stable * Mentation nearly at baseline * Hypoxia resolved - stable on RA * Hypoglycemia resolving - D/C dextrose IVF and monitor for recurrent hypoglycemia * PCT continues trending up - 4.35 on morning labs, but all other clinical indicators are improving * RSV + on Resp panel 05/12/24. Clinically suspect secondary bacterial pneumonia as well * Unexplained persistent hypoglycemia - suspect 2/2 sepsis * Resolving * PO Dextrose PRN * D/C D5.45 IVF - monitor for recurrent hypoglycemia * BC x 2 obtained in the ED - Neg x 48 hrs * BP stable * PRN IVP valium and Haldol for agitation/combativeness * Soft restraints in place * Repeat CBC, CMP, PCT in AM * AEB on admission: * criteria: T 102.3, HR 103, RR 26, WBC 15.4, Source - Bilat Pneumonia/UTI * DEC3 criteria: qSOFA of 2 (AMS, RR 26), SOFA at least 2 (PF ratio 245, AMS but unable to use GCS to calculate d/t baseline MRDD), Source - Bilat Pneumonia/UTI Qualifiers: Acute respiratory failure type: with hypoxia Sepsis acute organ dysfunction status: with acute organ dysfunction Sepsis type: sepsis due to unspecified organism Severe sepsis acute organ dysfunction type: acute respiratory failure Severe sepsis shock status: without septic shock Qualified Code(s): A41.9 - Sepsis, unspecified organism; R65.20 - Severe sepsis without septic shock; J96.01 - Acute respiratory failure with hypoxia (2) Pneumonia: Assessment and Plan: ACUTE * Improving * RUL, LLL on CTA chest * RSV + today on full resp panel. * Suspect secondary bacterial infection w/ rising procalcitonin * D/C Invanz IVPB today * Deescalate ABX to Rocephin per UTI C&S and improved respiratory status * Duoneb scheduled and PRN albuterol nebs * BID guaifenisen * sputum culture if able to obtain - not obtained to date Qualifiers: Laterality: bilateral Lung location: unspecified part of lung Pneumonia type: due to unspecified organism Qualified Code(s): J18.9 - Pneumonia, unspecified organism (3) Acute hypoxic respiratory failure: Assessment and Plan: ACUTE * Resolving * Weaned off O2 supplementation most of the night and remains on RA x 24 hrs * Multifactorial - acute bilateral pneumonia, mucous plugging * Pneumonia treatment as above * Continue Mucomyst nebs - pt tolerating well * O2 as needed to keep sats above 90% (4) UTI (urinary tract infection): Assessment and Plan: ACUTE * Urine culture growing >100,000 Staph Haemolyticus w/ C&S pending * Deescalate ABX to Rocephin today
[2023-05-13] MEDS: ERTAPENEM SODIUM 1 GM in 0.9 % SODIUM CHLORIDE 50 ML IV (10:45)
--- NOTE | 2023-05-13 11:46 | CM.NOTE ---
Rounds made with Dr. Adan. No plans for discharge today.
--- NOTE | 2023-05-13 14:38 | SWNOTE1 ---
Pt is from [place] and will return at discharge. SW spoke with pt's mother over the phone, she has been not feeling well. SW reviewed IMM form with pt's mother. She did not have any questions at this time. SW signed form since it was reviewed with pt's mother. Copy of form placed in chart and original was placed in the room.
[2023-05-13] MEDS: LACTATED RINGER'S SOLUTION 1,000 ML 75 ML IV (18:16)
[2023-05-13] MEDS: LEVETIRACETAM 500 MG TABLET 1500 MG PO (20:02)
[2023-05-13] MEDS: SULFAMETHOXAZOLE/TRIMETHOPRIM 800-160 MG TABLET 1 TAB PO (20:03)
[2023-05-14 00:06] VITALS: BP 132/82; PULSE 91; RESP 18; TEMP 36.8; O2SAT 96
[2023-05-14] MEDS: LACTATED RINGER'S SOLUTION 1,000 ML 75 ML IV (05:54)
[2023-05-14 05:56] VITALS: BP 130/85; PULSE 81; RESP 18; TEMP 36.9; O2SAT 96
[2023-05-14 05:57] LABS: Basophils Percent Auto 0.6 % (0.2-2.0); Eosinophils Absolute Auto 0.2 10^3/uL (0.0-0.7); Eosinophils Percent Auto 2.6 % (0.9-7.0); Hematocrit 31.2 % (42.0-54.0); Hemoglobin 10.6 g/dL (14.0-18.0); Immature Granulocytes Abs Auto 0.02 10^3/uL (0.00-0.03); Immature Granulocytes Pct Auto 0.3 % (0.0-0.5); Lymphocytes Absolute Auto 2.8 10^3/uL (1.2-3.8); Lymphocytes Percent Auto 39.7 % (20.5-60.0); Mean Corpuscular Volume 91.2 fL (80.0-94.0); Mean Platelet Volume 10.3 fL (9.5-13.5); Monocytes Absolute Auto 0.9 10^3/uL (0.3-0.8); Monocytes Percent Auto 12.5 % (1.7-12.0); Neutrophils Absolute Auto 3.1 10^3/uL (1.4-6.5); Neutrophils Percent Auto 44.3 % (43.0-75.0); Platelet Count 303 10^3/uL (150-450); Red Blood Count 3.42 10^6/uL (4.70-6.10); Red Cell Distribution Width 12.8 % (11.0-15.0)
[2023-05-14 06:04] LABS: Alanine Aminotransferase 84 U/L (16-63); Albumin Globulin Ratio 0.7; Albumin Level 2.5 g/dL (3.4-5.0); Alkaline Phosphatase 50 U/L (46-116); Anion Gap 7.6; Aspartate Amino Transferase 86 U/L (15-37); BUN Creatinine Ratio 2.2; Bilirubin Total 0.7 mg/dL (0.2-1.0); Blood Urea Nitrogen <1.0 mg/dL (7.0-18.0); Calcium 8.8 mg/dL (8.5-10.1); Carbon Dioxide 28.8 mmol/L (21.0-32.0); Chloride 103 mmol/L (98-107); Estimated GFR (African America >60 (>=60); Estimated GFR (Non-African Ame >60 (>=60); Globulin 3.8 g/dL; Glucose 122 mg/dL (74-106); Potassium 3.4 mmol/L (3.5-5.1); Sodium 136 mmol/L (136-145); Total Protein 6.3 g/dL (6.4-8.2)
[2023-05-14 06:22] LABS: PROCALCITONIN 3.25 ng/mL (0.00-0.50)
[2023-05-14 07:34] VITALS: BP 127/84; O2SAT 87
[2023-05-14] MEDS: SULFAMETHOXAZOLE/TRIMETHOPRIM 800-160 MG TABLET 1 TAB PO (08:54)
[2023-05-14] MEDS: LEVETIRACETAM 500 MG TABLET 1500 MG PO (08:58)
[2023-05-14] MEDS: OXCARBAZEPINE 600 MG TABLET 1 EACH PO (09:05)
[2023-05-14] MEDS: OXcarbazepine 300 MG TABLET PO (09:06)
[2023-05-14] MEDS: RIFAXIMIN 550 MG TABLET PO (09:07)
[2023-05-14] MEDS: OMEPRAZOLE 40 MG CAPSULE.DR PO (09:11)
[2023-05-14] MEDS: TAMSULOSIN HCL 0.4 MG CAPSULE PO (09:11)
[2023-05-14] MEDS: ACETYLCYSTEINE 400 MG/4 ML VIAL 200 MG IH (09:50)
[2023-05-14] MEDS: IPRATROPIUM/ALBUTEROL SULFATE 3 ML AMPUL.NEB IH (09:50)
[2023-05-14] MEDS: BUDESONIDE 0.5 MG/2 ML AMPULE NEB IH (09:50)
[2023-05-14 09:51] VITALS: O2SAT 96
[2023-05-14 11:06] VITALS: BP 123/75
--- NOTE | 2023-05-14 11:31 | CM.NOTE ---
Rounds made with Dr. Adan, pt will discharge back to [facility].
--- NOTE | 2023-05-14 12:03 | SWNOTE1 ---
Pt is discharging today back to [place]. CODY set up [facility] transport for 1:15. CODY notified nursing of time. Nursing mentioned [facility] transporting. CODY called and spoke to Donna and she will check with her administration in regards to transport for this pt. CODY had packet ready for pt and took to ICU.
--- NOTE | 2023-05-14 12:26 | SWNOTE1 ---
[facility] does not have staffing for transport. [facility] will be here at 1:15, SW updated nursing.
--- NOTE | 2023-05-14 13:41 | PM.DS1 ---
DS: Providers Provider Date of admission: 05/11/23 03:01 Primary care physician: ERIKA VENTURA DO Consults: 05/11/23 02:30 Consult to Pharmacy Routine Consulting Provider: Ruth Arauz Reason for consultation: Vanco dosing/monitoring Has provider been notified: No DS: Diagnosis Discharge Diagnosis (1) Sepsis: Qualifiers: Acute respiratory failure type: with hypoxia Sepsis acute organ dysfunction status: with acute organ dysfunction Sepsis type: sepsis due to unspecified organism Severe sepsis acute organ dysfunction type: acute respiratory failure Severe sepsis shock status: without septic shock Qualified Code(s): A41.9 - Sepsis, unspecified organism; R65.20 - Severe sepsis without septic shock; J96.01 - Acute respiratory failure with hypoxia (2) RSV (respiratory syncytial virus pneumonia): (3) Acute hypoxic respiratory failure: (4) UTI (urinary tract infection): (5) Seizure disorder: (6) Hepatic encephalopathy: (7) COPD (chronic obstructive pulmonary disease): (8) Intellectual disability: (9) Spastic cerebral palsy: DS: Summary Hospital Course Hospital Course: Reasion for admission: See ER note and H&P for details. 43 y/o male with a history of MRCP and nonverbal presents from nursing home with worsening seizures. History of seizure disorder but started having more seizures. Noticed fever and sent to ER. Temp 102.3 in ER. WBC elevated and CTA showed pneumonia. Ammonia elevated and UA with UTI. Flu and covid negative and admitted for treatment. Hospital course: Started levaquin for pneumonia and UTI. Resumed home medication. Initially very agitated and combative requiring soft restraints. Respiratory panel positive for RSV. Slowly improved in hospital. More alert and agitation improved. Urine showed UTI and changed to bactrim. Temp resolved. Able to wean off oxygen and normal SpO2 on room air. Transferred back to nursing home in stable condition. Resume home medication as directed. Time Spent with Patient Time attestation: Total time spent providing and/or coordinating discharge services: Exam Constitutional Vital Signs, click to edit/add: Last Vital Signs Temp 98.4 F 05/14/23 05:56 Pulse 81 05/14/23 05:56 Resp 18 05/14/23 05:56 BP 123/75 05/14/23 11:06 Pulse Ox 96 05/14/23 09:51 O2 Del Method Room Air 05/14/23 09:51 O2 Flow Rate 2 05/11/23 23:00 Documenting provider has reviewed patient's vital signs: yes Common normals: no apparent distress, oriented x3 and alert HENMT Common normals: normocephalic Eye Common normals: PERRL and EOMs intact bilaterally Respiratory Common normals: normal respiratory effort and clear to auscultation bilaterally Cardio Common normals: regular rate, regular rhythm, no gallops, no murmurs and no rub GI Common normals: Normal to inspection, nondistended, normoactive bowel sounds present and non-tender Extremity Common normals: no pedal edema DS: Data Data Completed and Pending Labs on day of discharge: Labs from last 24 hours 05/14/23 05:12 WBC 7.0 RBC 3.42 L Hgb 10.6 L Hct 31.2 L MCV 91.2 MCH 31.0 MCHC 34.0 RDW 12.8 Plt Count 303 MPV 10.3 Neut % (Auto) 44.3 Lymph % (Auto) 39.7 Hendricks % (Auto) 12.5 H Eos % (Auto) 2.6 Baso % (Auto) 0.6 Neut # (Auto) 3.1 Lymph # (Auto) 2.8 Hendricks # (Auto) 0.9 H Eos # (Auto) 0.2 Baso # (Auto) 0.0 Abs Immat Gran (auto) 0.02 Imm/Tot Granulo (auto) 0.3 Sodium 136 Potassium 3.4 L Chloride 103 Carbon Dioxide 28.8 Anion Gap 7.6 BUN <1.0 L Creatinine 0.46 L Est GFR ( Amer) >60 Est GFR (Non-Af Amer) >60 BUN/Creatinine Ratio 2.2 Glucose 122 H Calcium 8.8 Total Bilirubin 0.7 AST 86 H ALT 84 H Alkaline Phosphatase 50 Total Protein 6.3 L Albumin 2.5 L Globulin 3.8 Albumin/Globulin Ratio 0.7 Procalcitonin 3.25 H Preliminary micro results at discharge 05/11/23 02:34 - Preliminary Blood NO GROWTH AT 36-48 HOURS. FINAL TO FOLLOW. Discharge Plan Discharge Disposition: Home, Self-Care Discharge Medications: New sulfamethoxazole-trimethoprim 800-160 mg Tablet 1 tab PO BID 7 Days Qty: 14 0RF Continued alendronate 70 mg tablet 70 mg PO .COMPLEX Rx Instructions: 70 mg orally Every ; atorvastatin 10 mg tablet 10 mg PO QPM budesonide 0.5 mg/2 mL suspension for nebulization 0.5 mg inhalation BID clobazam 10 mg tablet 10 mg PO BID Rx Instructions: 799,1999 docusate sodium [DOK] 100 mg tablet 200 mg PO DAILY felbamate 400 mg tablet 400 mg PO TID Rx Instructions: 0800,1199,1999 fenofibrate nanocrystallized 145 mg tablet 145 mg PO DAILY furosemide 20 mg tablet 20 mg PO DAILY glycopyrrolate 1 mg tablet 1 mg PO BID Rx Instructions: 799, 1999 guaifenesin [Chest Congestion Relief] 400 mg tablet 400 mg PO BID Rx Instructions: ipratropium-albuterol 0.5 mg-3 mg(2.5 mg base)/3 mL solution for nebulization 3 ml INHALATION TID lactulose 10 gram/15 mL solution 60 g PO TID Rx Instructions: 0800,1199,1999 levetiracetam 500 mg tablet 500 mg PO QPM Rx Instructions: take one tablet by mouth daily at bedtime with 750mg tablets to equal 2000mg levetiracetam 750 mg tablet 1,500 mg PO BID levothyroxine 150 mcg tablet 150 mcg PO DAILY Linzess 145 mcg capsule 145 mcg PO DAILY loratadine 10 mg tablet 10 mg PO DAILY magnesium oxide 400 mg (241.3 mg magnesium) tablet 400 mg PO DAILY montelukast 10 mg tablet 10 mg PO QPM omeprazole 40 mg capsule,delayed release(DR/EC) 40 mg PO DAILY oxcarbazepine 300 mg tablet 300 mg PO BID oxcarbazepine 600 mg tablet 600 mg PO BID polyethylene glycol 3350 17 gram/dose powder 17 g PO DAILY tamsulosin 0.4 mg capsule 0.4 mg PO DAILY cholecalciferol (vitamin D3) 125 mcg (5,000 unit) capsule 125 mcg PO DAILY Xifaxan 550 mg tablet 550 mg PO BID [place] Saline Gel [place],Non-Aerosol 2 spray intranasal TID Rx Instructions: 0800,1599,1999 acetaminophen 325 mg capsule 650 mg PO Q4H PRN (Reason: fever or pain) acetaminophen 650 mg suppository 650 mg MN Q4H PRN (Reason: fever) clonazepam 0.25 mg tablet,disintegrating 0.25 mg translingual Q12H PRN (Reason: as needed for cluster of 5 seizures) diazepam 5-7.5-10 mg kit 10 mg MN .COMPLEX PRN (Reason: if 3 or more seizures in 2hrs) Rx Instructions: 10 mg rectally PRN; 10 mg rectally may repeat in 2hrs as needed PRN; albuterol sulfate 2.5 mg /3 mL (0.083 %) solution for nebulization 2.5 mg inhalation Q6H PRN (Reason: shortness of breath) Ultra Fresh PM Ointment 1 applic ophthalmic (eye) TID PRN (Reason: dry eye(s)) erythromycin 5 mg/gram (0.5 %) ointment 1 applic ophthalmic (eye) TID PRN (Reason: eye irritation) senna 8.6 mg capsule 17.2 mg PO BID PRN (Reason: constipation) Rx Instructions: IF NO BM IN 4 DAYS fluticasone propionate [24 Hour Allergy Relief] 50 mcg/actuation spray,suspension 2 spray intranasal DAILY Rx Instructions: administer into each nostril hydrocortisone 2.5 % cream 1 applic TOPICAL BID PRN (Reason: FLARES) Rx Instructions: NEEDED FOR FLARES Activity: resume usual activities as tolerated Diet: advance to your usual diet Patient Instructions: Sulfamethoxazole/Trimethoprim (By mouth) (Bactrim, Bactrim DS,... 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 Forms: Portal Instructions Follow Up Appointments: Follow up with Primary care physician
== END 2023-05-14 13:43 | disposition home or self-care (01) | DRG 871 ==
LOC: ER 19:49 → MS 05-11 03:02 → ICU 05-11 11:24
PROVIDERS: Emergency Medicine; Registered Nurse; Admitting Provider Family Medicine; Emergency Provider Internal Medicine; PCP Family Medicine; Visit Provider Nurse Practitioner
DX: A41.9 Sepsis, unspecified organism (principal); J12.1 Respiratory syncytial virus pneumonia; J96.01 Acute respiratory failure with hypoxia; G80.1 Spastic diplegic cerebral palsy; N39.0 Urinary tract infection, site not specified; Q93.82 Williams syndrome; J44.0 Chronic obstructive pulmonary disease with (acute) lower respiratory infection; F72 Severe intellectual disabilities; G40.909 Epilepsy, unspecified, not intractable, without status epilepticus; K21.9 Gastro-esophageal reflux disease without esophagitis; E78.5 Hyperlipidemia, unspecified; N40.0 Benign prostatic hyperplasia without lower urinary tract symptoms; M81.0 Age-related osteoporosis without current pathological fracture; F90.9 Attention-deficit hyperactivity disorder, unspecified type; E03.9 Hypothyroidism, unspecified; Z66 Do not resuscitate; Z79.899 Other long term (current) drug therapy; Z86.16 Personal history of COVID-19; Z87.01 Personal history of pneumonia (recurrent); R50.9 Fever, unspecified; K76.82 Hepatic encephalopathy; R13.10 Dysphagia, unspecified; Z78.1 Physical restraint status; R65.20 Severe sepsis without septic shock; R45.1 Restlessness and agitation; R73.9 Hyperglycemia, unspecified; E16.2 Hypoglycemia, unspecified
CPT/HCPCS: 0202U; 36410; 36415; 36592; 70450; 71045; 71275; 80048; 80053; 81001; 82140; 82800; 82948; 84132; 84145; 85025; 87040; 87070; 87081; 87086; 87150; 87186; 87804; 87811; 94640; 94761; 96365; 96366; 96367; 96368; 96372; 96375; 96376; 99285; C1887; J0131; J1335; J1630; J1885; J1953; J2060; J3360; J3480; Q9967

== ENCOUNTER 2023-07-06 06:37 | Outpatient (OUT) | payer MEDICARE, MEDICAID, SELFPAY ==
--- OUTSIDE RECORDS SUMMARY | 2023-07-06 06:41 | XMS_ITS | CCD ---
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 Name Role Phone FAM VENTURA Primary Care Physician [phone] PROVIDER, UNKNOWN Attending Unavailable PROVIDER, UNKNOWN Admitting Unavailable Vishnu ACEVES, Abundio Unavailable LeonelAntionette Unavailable LORENZO, DR FAM Duran Attending Unavailable VENTURA, DR FAM Duran Admitting Unavailable VENTURA, DR FAM Duran Primary Care Unavailable VENTURA, DR FAM Duran Consulting Unavailable LUE ., ARLINE Schwarz Attending Unavailable LUE .ARLINE Admitting Unavailable VENTURA, DR FAM Duarn Consulting Unavailable VENTURA, DR FAM Duran Primary [...] Unavailable NADERER, DR CHELE Duran Consulting Unavailable ALICE .IDRIS Consulting Unavailsusan BURGER ., DR FIELDS Consulting Unavailable MALKA PEREZ Consulting Unavailable RILEY, SOPHIA Consulting Unavailable JBARA, GURJIT Consulting Unavailable VENTURA, DR FAM Duran Primary Care Unavailable NADERELeonor, DR CHELE Duran Consulting Unavailable NADERELeonor, DR CHELE Duran Attending Unavailable NADERER, DR CHELE Duran Admitting Unavailable BROWN, ANICETO Consulting Unavailable DIAB ., EMIL Consulting Unavailable TAJ, DR FRIAS Admitting Unavailable TAJ, DR FRIAS Attending Unavailable VENTURA, DR FAM Duran Primary Care Unavailable VENTURA, DR FAM Duran Consulting Unavailable TAJ, DR FRIAS Consulting Unavailable VENTURA, DR FAM Duran Admitting Unavailable VENTURA, DR FAM Duran Primary Care Unavailable VENTURA, DR FAM Duran Consulting Unavailable VENTURA, DR FAM Duran Attending Unavailable KlipperAniceto Consulting Unavailable TAJ, DR FRIAS Attending Unavailable [...] Unavailable VENTURA, DR FAM Duran Admitting Unavailable VENTRUA, DR FAM Duran Primary Care Unavailable VENTURA, DR FAM Duran Consulting Unavailable VENTURA, DR FAM Duran Admitting Unavailable VENTURA, DR FAM Duran Primary Care Unavailable VENTURA, DR FAM Duran Attending Unavailable VENTURA, DR FAM Duran Consulting Unavailable DANIEL, ABBI Consulting Unavailable DANIEL, ABBI Attending Unavailable DANIELABBI Admitting Unavailable VENTURA, DR FAM Duran Primary Care Unavailable BRITTON FONTENOT Consulting Unavailable JAMIE ALICIA Consulting Unavailable VENTURA, DR FAM Duran Primary Care Unavailable CRISTI .FRANCOIS Attending Unavailable CRISTI .FRANCOIS Admitting Unavailable ALICE .IDRIS Consulting Unavailabl e NEFCYGUANAKITO Consulting Unavailable SHARMILA .ANJELICA Consulting Unavailable SHARMILA .ANJELICA Attending Unavailable VENTURA, DR FAM Duran Primary Care Unavailable SHARMILA .ANJELICA Admitting Unavailable HAY ., DR FIELDS Consulting Unavailable HAY ., DR FEILDS Attending Unavailable VENTURA, DR FAM Duran Primary Care Unavailable HAY ., DR FIELDS Admitting Unavailable KlipperAniceto Consulting Unavailable LuArline jones Attending Unavailable VENTURA, FAM Referring Unavailable VENTURA, FAM Attending Unavailable VENTURA, FAM Admitting Unavailable Allergies Allergy Classification Reported Allergen(s) Allergy Type Date of Onset Reaction(s) Facility (8 sources) Amoxicillin / Clavulanate; Translations: [amoxicillin-clav ulanate] Drug Allergy Unknown [facility] (8 sources) Phenytoin; Translations: [phenytoin] Drug Allergy Unknown [facility] (11 sources) Promethazine; Translations: [promethazine] Drug Allergy 7 Unknown [facility] (3 sources) Phenytoin; Translations: [PHENYTOIN SODIUM EXTENDED] Drug Allergy 7 [facility] (3 sources) AMOXICILLIN-POT CLAVULANATE; Translations: [AMOXICILLIN-POT CLAVULANATE] Propensity to adverse reactions to drug (disorder) 7 The [facility] Repository (1 source) 4-Aminobenzoic Acid Drug Allergy [facility] (1 source) Amoxicillin / Clavulanate Drug Allergy 4 [facility] (1 source) Levamisole Drug Allergy 4 [facility] (1 source) metroNIDAZOLE Drug Allergy [facility] Rep[facility] (1 source) Phenytoin Drug Allergy 4 [facility] (1 source) remdesivir (investigational use) Drug allergy (disorder) [facility] Medications Current Medications Medication Drug [...] mg oral tablet (9 sources) Benzodiazepine Start: 016 take 10 mg by mouth twice daily [...] Start: 10-22-2021 take 1 capsule by mo ut twice daily as needed for constipation docusate sodium 100 mg Cap 100 mg = 1 cap(s), Oral, BID, PRN for constipation, # 20 cap(s), Refills(s) 0 Start Date: 10/22/21 Status: Ordered take 1 capsule by mo [facility] every twenty-four hours Docusate Sodium 100 MG [...] Status: Ordered take 2 tablets by mo [facility] in the morning, then take 3 tablets [...] Start Date: 12/16/22 Status: Ordered Start: 02-23-2020 Annyniloshelley 145 MC G CAPS capsule Start: 07-05-2015 Linzesshelley 145 mi crogram, Oral, Daily, PRN Constipation, Refills(s) 0 Start Date: 07/05/15 Status: Ordered Yoniss 145 145m cg 1 PO Every AM [...] Ordered Normal saline (7 sources) Start: 07-05-2015 [place] Saline Nasal Gel Nasal, TID, Refill(s) 0, Dry nasal passages Start Date: 07/05/15 Status: Ordered [place] Saline Nasal Gel Nasally Active omeprazole 40 [...] bid, Prophylaxis Start Date: 07/05/15 Status: Ordered [id number] oral powder for reconstitution (1 source) Start: 023 [id number] oral powder for reconstitution Start Date: 12/16/22 Status: Ordered polyethylene glycol 3350 33217 mg powder for oral solution (4 sources) [...] 06-30-2013 Chronic Other aftercare (5 sources) Other prison (current) drug therapy; Translations: [OTH HEAT CURER CURRENT DRUG THERAPY] Onset: 06-03-2022 Episodic Other [...] incontinence Your Care Team Attending Physician - Arline Levine MD Primary Care Physician - FAM VENTURA DO [...] (oxcarbazepine 600 mg Tab) polyethylene glycol 3350 ([id number] oral powder for reconstitution) polyethylene glycol 3350 (polyethylene glycol 3350 17 gram packet) rifaximin (Xifaxan 550 mg oral tablet) senna (Senna 8.6 mg oral tablet) sodium chloride nasal ([place] Saline Nasal Gel) tamsulosin Discharge Vitals Temperature [...] Application T (more content not included)... Normal [facility] Patient Educationon 12-17-19 Patient Education Obstetrics and Gynecology Kegel Exercises [...] provider. Document Revised: 08/14/2021 Document Reviewed: 08/14/2021 [employer] Patient Education ? 2022 [employer] Normal [facility] Physician Orderon 12-16-2022 Physician Order [id number]:127 Normal [facility] RAD - Ultrasound Reporton RAD - Ultrasound Report [id number] .[id number]:127 Normal [facility] Urology Office/Clinic Noteon 12-16-2022 Urology Office/Clinic [...] of retractile testes. Pt currently resides in [facility]. CBC/CMP 08/01/22 1. Retractile testis (Q55.22: [...] URL, URO Additional Instructions: PRN Patient Education Kegel Linette Ordaz, Makayla Tdod, personally scribed for Dr. Levine on 12/16/2022 [...] Eye-Both, QID atorvastatin, 10 mg, Oral, Daily [place] Saline Nasal Gel, Nasal, TID azelastine nasal 137 mcg/inh spray, 2 spray(s), Nasal, As (more content not included)... Normal [facility] Comment on above: Result Comment: Elec [...] GUANAKITO MEADE Date: 2022-08-04 18:50 Normal [facility] AMMONIAon 08-02-2022 Ammonia (P) [Moles/Vol] 87 umol/L Critically high -32 [facility] Comment on above: Performed By: #### B MP #### [facility] [address] [place] [address] Dr. Deepak Greenfield AMMONIAon 08-01-2022 Ammonia (P) [Moles/Vol] 42 umol/L Critically high -32 [facility] Comment on above: Performed By: #### M G, CMP #### [facility] [address] [place] [address] Dr. Deepak Greenfield CBC W MANUAL DIFFon 08-02-19 23 ATYPICAL LYMPH # 0.41 103/ul Normal [facility] Comment on above: Performed By: #### M G, CMP #### [facility] [address] [place] [address] Dr. Deepak Greenfield ATYPICAL LYMPH % 7 % Normal [facility] Comment on above: Performed By: #### M G, CMP #### [facility] [address] [place] [address] Dr. Deepak Greenfield BAND # 0.0 103/ul Normal 0.0-0.3 [facility] Comment on above: Performed By: #### M G, CMP #### [facility] [address] [place] [address] Dr. Deepak Greenfield BAND % 0 % Normal 0-5 [facility] Comment on above: Performed By: #### M G, CMP #### [facility] [address] [place] [address] Dr. Deepak Greenfield BASOM # 0.00 103/ul Normal 0.00-0.10 [facility] Comment on above: Performed By: #### M G, CMP #### [facility] [address] [place] [address] Dr. Deepak Greenfield BASOM % 0.0 % Critically low 0.2-2.0 [facility] Comment on above: Performed By: #### M G, CMP #### [facility] [address] [place] [address] Dr. Deepak Greenfield BLAST # Normal [facility] Comment on above: Performed By: #### M G, CMP #### [facility] [address] [place] [address] Dr. Deepak Greenfield BLAST % Normal [facility] Comment on above: Performed By: #### M G, CMP #### [facility] [address] [place] [address] Dr. Deepak Greenfield CORRECTED WBC Normal 4.0-11.0 [facility] Comment on above: Performed By: #### M G, CMP #### [facility] [address] [place] [address] Dr. Deepak Greenfield EOS # 0.06 103/ul Normal 0.00-0.70 [facility] Comment on above: Performed By: #### M G, CMP #### [facility] [address] [place] [address] Dr. Deepak Greenfield EOS% 1.0 % Normal 0.9-7.0 [facility] Comment on above: Performed By: #### M G, CMP #### [facility] [address] [address] [address] Deepak Greenfield HCT 37.6 % Critically low 42.0-54.0 [facility] Comment on above: Performed By: #### M G, CMP #### [facility] [address] [address] [address] Deepak Greenfield HGB 12.3 g/dl Critically low 14.0-18.0 [facility] Comment on above: Performed By: #### M G, CMP #### [facility] [address] [address] [address] Deepak Greenfield LYMPHM # 1.91 103/ul Normal 1.20-3.80 [facility] Comment on above: Performed By: #### M G, CMP #### [facility] [address] [place] [address] Dr. Deepak Greenfield LYMPHM% 33.0 % Normal 20.5-60.0 [facility] Comment on above: Performed By: #### M G, CMP #### [facility] [address] [place] [address] Dr. Deepak Greenfield MCH 31.7 pg Normal 25.9-34.0 [facility] Comment on above: Performed By: #### M G, CMP #### [facility] [address] [place] [address] Dr. Deepak Greenfield MCHC 32.7 g/dl Normal 29.9-35.2 [facility] Comment on above: Performed By: #### M G, CMP #### [facility] [address] [address] [address] Deepak Greenfield MCV 96.9 fL Critically high 80.0-94.0 [facility] Comment on above: Performed By: #### M G, CMP #### [facility] [address] [place] [address] Dr. Deepak Greenfield METAMYELOCYTE # Normal [facility] Comment on above: Performed By: #### M G, CMP #### [facility] [address] [place] [address] Dr. Deepak Greenfield METAMYELOCYTE % Normal [facility] Comment on above: Performed By: #### M G, CMP #### [facility] [address] [address] [address] Deepak Greenfield MONOM# 0.29 103/ul Critically low 0.30-0.80 [facility] Comment on above: Performed By: #### M G, CMP #### [facility] [address] [address] [address] Deepak Greenfield MONOM% 5.0 % Normal 1.7-12.0 [facility] Comment on above: Performed By: #### M G, CMP #### [facility] [address] [address] [address] Deepak Greenfield MPV 11.0 fL Normal 9.5-13.5 [facility] Comment on above: Performed By: #### M G, CMP #### [facility] [address] [place] [address] Dr. Deepak Greenfield MYELOCYTE # Normal [facility] Comment on above: Performed By: #### M G, CMP #### [facility] [address] [address] [address] Deepak Greenfield MYELOCYTE % Normal [facility] Comment on above: Performed By: #### M G, CMP #### [facility] [address] [place] [address] Dr. Deepak Greenfield NRBC Normal [facility] Comment on above: Performed By: #### M G, CMP #### [facility] [address] [address] [address] Deepak Greenfield PLT 208 103/ul Normal 150-450 [facility] Comment on above: Performed By: #### M G, CMP #### [facility] [address] [address] [address] Deepak Greenfield RBC 3.88 106/ul Critically low 4.70-6.10 [facility] Comment on above: Performed By: #### M G, CMP #### [facility] [address] [address] [address] Deepak Greenfield RDW 12.9 % Normal 11.0-15.0 [facility] Comment on above: Performed By: #### M G, CMP #### [facility] [address] [address] [address] Deepak Greenfield SEG # 3.13 103/ul Normal 1.40-6.50 [facility] Comment on above: Performed By: #### M G, CMP #### [facility] [address] [place] [address] Dr. Deepak Greenfield SEG % 54.0 % Normal 43.0-75.0 [facility] Comment on above: Performed By: #### M G, CMP #### [facility] [address] [place] [address] Dr. Deepak Greenfield STOMATOCYTES 3+ Normal [facility] Comment on above: Performed By: #### M G, CMP #### [facility] [address] [place] [address] Dr. Deepak Greenfield WBC 5.8 103/ul Normal 4.0-11.0 [facility] Comment on above: Performed By: #### M G, CMP #### [facility] [address] [place] [address] Dr. Deepak Greenfield PROF CHEM 8 (BAS METB)on Anion gap [Moles/Vol] 16.1 mmol/L Normal [facility] Comment on above: Performed By: #### B MP #### [facility] [address] [place] [address] Dr. Deepak Greenfield Calcium [Mass/Vol] 9.3 mg/dL Normal 8.5-10.1 [facility] Comment on above: Performed By: #### B MP #### [facility] [address] [place] [address] Dr. Deepak Greenfield Chloride [Moles/Vol] 105 mmol/L Normal 98-107 [facility] Comment on above: Performed By: #### B MP #### [facility] [address] [place] [address] Dr. Deepak Greenfield CO2 [Moles/Vol] 27.6 mmol/L Normal 21.0-32.0 [facility] Comment on above: Performed By: #### B MP #### [facility] [address] [address] [address] Deepak Greenfield Creatinine [Mass/Vol] 0.96 mg/dL Normal 0.70-1.30 [facility] Comment on above: Performed By: #### B MP #### [facility] [address] [address] [address] Deepak Greenfield EGFR-AF MONTSERRATIAN >60 Normal >=60 [facility] Comment on above: Performed By: #### B MP #### [facility] [address] [address] [address] Deepak Greenfield EGFR-NON AF MONTSERRATIAN >60 Normal >=60 [facility] Comment on above: Performed By: #### B MP #### [facility] [address] [address] [address] Deepak Greenfield Glucose [Mass/Vol] 160 mg/dL Critically high 74-106 [facility] Comment on above: Performed By: #### B MP #### [facility] [address] [address] [address] Deepak Greenfield Potassium [Moles/Vol] 3.7 mmol/L Normal 3.5-5.1 [facility] Comment on above: Performed By: #### B MP #### [facility] [address] [place] [address] Dr. Deepak Greenfield Sodium [Moles/Vol] 145 mmol/L Normal 136-145 [facility] Comment on above: Performed By: #### B MP #### [facility] [address] [address] [address] Deepak Greenfield Urea nitrogen [Mass/Vol] 5.0 mg/dL Critically low 7.0-18.0 [facility] Comment on above: Performed By: #### B MP #### [facility] [address] [address] [address] Deepak Greenfield Urea nitrogen/Creatinine [Mass ratio] 5.2 mg/mg Normal [facility] Comment on above: Performed By: #### B MP #### [facility] [address] [address] [address] Deepak Greenfield AMMONIAon 07-31-2022 Ammonia (P) [Moles/Vol] 94 umol/L Critically high 11-32 [facility] Comment on above: Performed By: #### M G, CMP #### [facility] [address] [address] [address] Deepak Greenfield CBC AUTO DIFFon 07-31-2022 BASO # 0.0 103/ul Normal 0.0-0.1 [facility] Comment on above: Performed By: #### B MP #### [facility] [address] [place] [address] Dr. Deepak Greenfield Basophils/100 WBC (Bld) 0.1 % Critically low 0.2-2.0 [facility] Comment on above: Performed By: #### B MP #### [facility] [address] [place] [address] Dr. Deepak Greenfield EO # 0.0 103/ul Normal 0.0-0.7 [facility] Comment on above: Performed By: #### B MP #### [facility] [address] [place] [address] Dr. Deepak Greenfield Eosinophils/100 WBC (Bld) 0.0 % Critically low 0.9-7.0 [facility] Comment on above: Performed By: #### B MP #### [facility] [address] [place] [address] Dr. Deepak Greenfield Erythrocyte distribution width (RBC) [Ratio] 13.1 % Normal 11.0-15.0 [facility] Comment on above: Performed By: #### B MP #### [facility] [address] [place] [address] Dr. Deepak Greenfield Hematocrit (Bld) [Volume fraction] 32.4 % Critically low 42.0-54.0 [facility] Comment on above: Performed By: #### B MP #### [facility] [address] [place] [address] Dr. Deepak Greenfield Hemoglobin (Bld) [Mass/Vol] 10.9 g/dL Critically low 14.0-18.0 [facility] Comment on above: Performed By: #### B MP #### [facility] [address] [address] [address] Deepak Greenfield IG # 0.02 10e3/ul Normal 0.00-0.03 [facility] Comment on above: Performed By: #### B MP #### [facility] [address] [place] [address] Dr. Deepak Greenfield IG % 0.3 % Normal 0.0-0.5 [facility] Comment on above: Performed By: #### B MP #### [facility] [address] [place] [address] Dr. Deepak Greenfield LYMPH # 2.7 103/ul Normal 1.2-3.8 [facility] Comment on above: Performed By: #### B MP #### [facility] [address] [place] [address] Dr. Deepak Greenfield Lymphocytes/100 WBC (Bld) 38.9 % Normal 20.5-60.0 [facility] Comment on above: Performed By: #### B MP #### [facility] [address] [place] [address] Dr. Deepak Greenfield MANUAL DIFF REQ NO Normal [facility] Comment on above: Performed By: #### B MP #### [facility] [address] [place] [address] Dr. Deepak Greenfield MCH (RBC) [Entitic mass] 32.3 pg Normal 25.9-34.0 [facility] Comment on above: Performed By: #### B MP #### [facility] [address] [place] [address] Dr. Deepak Greenfield MCHC (RBC) [Mass/Vol] 33.6 g/dL Normal 29.9-35.2 [facility] Comment on above: Performed By: #### B MP #### [facility] [address] [place] [address] Dr. Deepak Greenfield MCV (RBC) [Entitic vol] 96.1 fL Critically high 80.0-94.0 [facility] Comment on above: Performed By: #### B MP #### [facility] [address] [place] [address] Dr. Deepak Greenfield MONO # 0.3 103/ul Normal 0.3-0.8 [facility] Comment on above: Performed By: #### B MP #### [facility] [address] [place] [address] Dr. Deepak Greenfield Monocytes/100 WBC (Bld) 4.9 % Normal 1.7-12.0 [facility] Comment on above: Performed By: #### B MP #### [facility] [address] [place] [address] Dr. Deepak Greenfield NEUT # 3.9 103/ul Normal 1.4-6.5 [facility] Comment on above: Performed By: #### B MP #### [facility] [address] [place] [address] Dr. Deepak Greenfield Neutrophils/100 WBC (Bld) 55.8 % Normal 43.0-75.0 [facility] Comment on above: Performed By: #### B MP #### [facility] [address] [place] [address] Dr. Deepak Greenfield Platelet mean volume (Bld) [Entitic vol] 9.7 fL Normal 9.5-13.5 [facility] Comment on above: Performed By: #### B MP #### [facility] [address] [place] [address] Dr. Deepak Greenfield PLT 296 103/ul Normal 150-450 [facility] Comment on above: Performed By: #### B MP #### [facility] [address] [place] [address] Dr. Deepak Greenfield RBC 3.37 106/ul Critically low 4.70-6.10 [facility] Comment on above: Performed By: #### B MP #### [facility] [address] [place] [address] Dr. Deepak Greenfield WBC 7.0 103/ul Normal 4.0-11.0 [facility] Comment on above: Performed By: #### B MP #### [facility] [address] [place] [address] Dr. Deepak Greenfield PROF CHEM 8 (BAS METB)on Anion gap [Moles/Vol] 14.9 mmol/L Normal [facility] Comment on above: Performed By: #### C BC #### [facility] [address] [place] [address] Dr. Deepak Greenfield Calcium [Mass/Vol] 8.8 mg/dL Normal 8.5-10.1 [facility] Comment on above: Performed By: #### C BC #### [facility] [address] [place] [address] Dr. Deepak Greenfield Chloride [Moles/Vol] 105 mmol/L Normal 98-107 [facility] Comment on above: Performed By: #### C BC #### [facility] [address] [place] [address] Dr. Deepak Greenfield CO2 [Moles/Vol] 26.4 mmol/L Normal 21.0-32.0 [facility] Comment on above: Performed By: #### C BC #### [facility] [address] [place] [address] Dr. Deepak Greenfield Creatinine [Mass/Vol] 0.70 mg/dL Normal 0.70-1.30 [facility] Comment on above: Performed By: #### C BC #### [facility] [address] [place] [address] Dr. Deepak Greenfield EGFR-AF MONTSERRATIAN >60 Normal >=60 [facility] Comment on above: Performed By: #### C BC #### [facility] [address] [place] [address] Dr. Deepak Greenfield EGFR-NON AF MONTSERRATIAN >60 Normal >=60 [facility] Comment on above: Performed By: #### C BC #### [facility] [address] [place] [address] Dr. Deepak Greenfield Glucose [Mass/Vol] 129 mg/dL Critically high 74-106 [facility] Comment on above: Performed By: #### C BC #### [facility] [address] [place] [address] Dr. Deepak Greenfield Potassium [Moles/Vol] 4.3 mmol/L Normal 3.5-5.1 [facility] Comment on above: Performed By: #### C BC #### [facility] [address] [place] [address] Dr. Deepak Greenfield Sodium [Moles/Vol] 142 mmol/L Normal 136-145 [facility] Comment on above: Performed By: #### C BC #### [facility] [address] [place] [address] Dr. Deepak Greenfield Urea nitrogen [Mass/Vol] 6.0 mg/dL Critically low 7.0-18.0 [facility] Comment on above: Performed By: #### C BC #### [facility] [address] [place] [address] Dr. Deepak Greenfield Urea nitrogen/Creatinine [Mass ratio] 8.6 mg/mg Normal [facility] Comment on above: Performed By: #### C BC #### [facility] [address] [place] [address] Dr. Deepak Greenfield AMMONIAon 07-30-2022 Ammonia (P) [Moles/Vol] 64 umol/L Critically high 11-32 [facility] Comment on above: Performed By: #### C BC #### [facility] [address] [place] [address] Dr. Deepak Greenfield CBC AUTO DIFFon 07-30-2022 BASO # 0.0 103/ul Normal 0.0-0.1 [facility] Comment on above: Performed By: #### I NFLUAB #### [facility] [address] [place] [address] Dr. Deepak Greenfield Basophils/100 WBC (Bld) 0.0 % Critically low 0.2-2.0 [facility] Comment on above: Performed By: #### I NFLUAB #### [facility] [address] [place] [address] Dr. Deepak Greenfield EO # 0.0 103/ul Normal 0.0-0.7 [facility] Comment on above: Performed By: #### I NFLUAB #### [facility] [address] [place] [address] Dr. Deepak Greenfield Eosinophils/100 WBC (Bld) 0.0 % Critically low 0.9-7.0 [facility] Comment on above: Performed By: #### I NFLUAB #### [facility] [address] [place] [address] Dr. Deepak Greenfield Erythrocyte distribution width (RBC) [Ratio] 13.1 % Normal 11.0-15.0 [facility] Comment on above: Performed By: #### I NFLUAB #### [facility] [address] [place] [address] Dr. Deepak Greenfield Hematocrit (Bld) [Volume fraction] 31.4 % Critically low 42.0-54.0 [facility] Comment on above: Performed By: #### I NFLUAB #### [facility] [address] [place] [address] Dr. Deepak Greenfield Hemoglobin (Bld) [Mass/Vol] 10.5 g/dL Critically low 14.0-18.0 [facility] Comment on above: Performed By: #### I NFLUAB #### [facility] [address] [place] [address] Dr. Deepak Greenfield IG # 0.01 10e3/ul Normal 0.00-0.03 [facility] Comment on above: Performed By: #### I NFLUAB #### [facility] [address] [place] [address] Dr. Deepak Greenfield IG % 0.2 % Normal 0.0-0.5 [facility] Comment on above: Performed By: #### I NFLUAB #### [facility] [address] [place] [address] Dr. Deepak Greenfield LYMPH # 1.5 103/ul Normal 1.2-3.8 [facility] Comment on above: Performed By: #### I NFLUAB #### [facility] [address] [place] [address] Dr. Deepak Greenfield Lymphocytes/100 WBC (Bld) 27.5 % Normal 20.5-60.0 [facility] Comment on above: Performed By: #### I NFLUAB #### [facility] [address] [place] [address] Dr. Deepak Greenfield MANUAL DIFF REQ NO Normal [facility] Comment on above: Performed By: #### I NFLUAB #### [facility] [address] [place] [address] Dr. Deepak Greenfield MCH (RBC) [Entitic mass] 32.4 pg Normal 25.9-34.0 [facility] Comment on above: Performed By: #### I NFLUAB #### [facility] [address] [place] [address] Dr. Deepak Greenfield MCHC (RBC) [Mass/Vol] 33.4 g/dL Normal 29.9-35.2 [facility] Comment on above: Performed By: #### I NFLUAB #### [facility] [address] [place] [address] Dr. Deepak Greenfield MCV (RBC) [Entitic vol] 96.9 fL Critically high 80.0-94.0 [facility] Comment on above: Performed By: #### I NFLUAB #### [facility] [address] [place] [address] Dr. Deepak Greenfield MONO # 0.2 103/ul Critically low 0.3-0.8 [facility] Comment on above: Performed By: #### I NFLUAB #### [facility] [address] [place] [address] Dr. Deepak Greenfield Monocytes/100 WBC (Bld) 2.9 % Normal 1.7-12.0 [facility] Comment on above: Performed By: #### I NFLUAB #### [facility] [address] [place] [address] Dr. Deepak Greenfield NEUT # 3.8 103/ul Normal 1.4-6.5 [facility] Comment on above: Performed By: #### I NFLUAB #### [facility] [address] [place] [address] Dr. Deepak Greenfield Neutrophils/100 WBC (Bld) 69.4 % Normal 43.0-75.0 [facility] Comment on above: Performed By: #### I NFLUAB #### [facility] [address] [address] [address] Deepak Greenfield Platelet mean volume (Bld) [Entitic vol] 9.4 fL Critically low 9.5-13.5 [facility] Comment on above: Performed By: #### I NFLUAB #### [facility] [address] [address] [address] Deepak Greenfield PLT 256 103/ul Normal 150-450 [facility] Comment on above: Performed By: #### I NFLUAB #### [facility] [address] [address] [address] Deepak Greenfield RBC 3.24 106/ul Critically low 4.70-6.10 [facility] Comment on above: Performed By: #### I NFLUAB #### [facility] [address] [address] [address] Deepak Greenfield WBC 5.5 103/ul Normal 4.0-11.0 [facility] Comment on above: Performed By: #### I NFLUAB #### [facility] [address] [place] [address] Dr. Deepak Greenfield Coding Summary.on 07-30-2022 Coding Summary. CD:[id number] W w+PGhlYWQ+WO5OXILgC36 ttBBhmH6jQ3JONEyMMkbg JWLQGJbEVhDnrrDdVH7ae XNjZXJu IC8+AU8nUEGfFqcccCQdb 8N7vLS9P46rbv4hOGtbyI K9VTElGtZdiylek7nfhIx 6IDcuNmluOyBt GKCszA24PQS4xO23Dt89h JVfrGIja5qdzXb9YcFpKX OnWCS1yRyzNRscp3QjRLH fG52frRMiq1W5 WSWnpXmttAYqSgIeqBL1x P4tMZtbbyxlx4svonnjMe j5pq01uYYqz5B5vWR1U1V mxfU2SCTanBOl CjzdtULKbP1qifzdn8nnx shzVoIkVRZrJSi3UYt2JW FppBqgEqNaOT55FED6NME qqmXoC6RcYOQa jIxiFmH7o9B7Em9TR8QRZ qyxN5APFDFRNAsedZO+PC 27dm23V3JnNrczAef5CIX aAPJ6nVR3fY0h TBIrKIwml5D6vHK7U7Jtw zKufs8px1mjZBUsQXtaQ5 2ftLWpt5A2FWYsxKX1RFN izXhbPxTczL24 Oyc+HGFmjKxdt9FdKihpu 8kmc3qjyXh5GkbuWUSzoy XzrAtvOXO2e2TiEz7tIRO bjXH6qNG3aM6w EfCeNgN9FZzxU754VrDno XDnYafrX65gQ2IrcIO+PH XvCqk0OSDwaKrqOD1fB9K hZGRpbmctbGVm uFhbJB4eVCNiajsrHIJpj H1hBQKaZ1f4RgMvFjH2FG jyV2HlLELnintrSb97mU8 kJeTsYmC9LYlk U3EfhgP3IUBhgACmTKylE YB5J90ys8A1QBFdBIIoMW O0oQS4pZ4weUgmcgrzdSW mdDsgdmVydGlj LXouXLrjA864TUBrbTbmH kNvZGluZyBEYXRlOiAgMD QvMTMvMjAyMzwvdGQ+PHR kWWR6vSjjXXJa pCEqVHwcIh2glLpqdYlxE L0gMEXkuyyeRCZaqR1hBF QgqDVhwUozHH5oDOJkqbf bg895SlJvJEI7 BENcvQYuG8KuiJ2sQtFtF OVrHPYbI3RuhVPuUObzM7 27FKviCpQ9EFDxxmPsL2R sLWFsaWduOiB0 d9N6Vm3Tc9FraovcB1Yiu IHcMhRaUcfiDWf7Z9NlKt wvdHI+KZ17LGDuTE15WQm 9FEA0aZznZMtu BQAuA1XeeQ2mDmLoLKEoQ GRkOyc+PHRhYmxlIHdpZH RoPScxMDAlJyBzdHlsZT0 rTu5tTIKeNVRs uYacjCPaGhSlm1nxXBEdW MvxCX3hcVogM3AffJM7SO Jsh9g0Os88L17rM6VwhYC +IQPcdMQ8aHX3 uD1aEkDoIxP0YYzkE751L gLkmZFpDioun1byq0zbdI h4WcV4JUGmbiQzoNchFTI 0g0VeCy81G92w IHdpZHRoPSIxNSUiIHZhb Ltlfa4etN0jBr5+PGNvbC O2gMA3xV1tEnYaEvV6FPa lM290GjZtcRWp Ioipn1htj0wfsAi8VqFlF LXaxiHwsBxkEQF6u2AsGc 03N4LnxMvng3BkLee5yf8 1dEPhc4T0zIY2 D0LyDKBekynosTChqGswT I4qSROvezavYFPbhH2nRQ VbE0b0JcIdWcI0PIspK9B ifcJ0SITadSKf DFAvnHSGdI1rmiyxx7jdz zheFaYlFUTnSHi6KJq7YL XgcAmgBxYiVCM8TcE4CMJ 2uQTwdC2kcSwj wlyinZ1xFol+LZD2qGAzg CQAYU9xOidblVG+PHRkIH M1zPicKKyiITBhcN4zIWO qU0e8UnPpDfR3 DGwwR5HdhgM9ZUNdnJWpW XPpnUWBfN8kfgunf6arpu bxXnQlYSVbAXr5PYz8EDM saWduOiBsZWZ0 HzZ6EEV6tTHnwT3foTxiy lbwwB7iDrp+QmlydGggRG U7WXj4M4GuJzb3DRZwvOt aXB1mvWKlFSor Ni8dsFlsnLuhYX2vSOShw dbzf701FpTir8niZIVerI KhBNrkANA7Y67fn1D1SPQ mXOXzXLV0aLC9 lP6dsXddyufgrGPtoKeau jSsbKkjBOicDPihW288OV VgmHvtQhOkOZg6U3DnNzj 9ZBDidCjlPN7o wNRmBRdjFx8lfOrtmTwuZ Z9qOETpxaksx447NvQbn0 ykDQPfjWUuWRtfIEC7H54 dx8V0DMQrFXKw QMJ1eAW0hS2tkAkikoegf GVmdDsgdmVydGljYWwtYW kuU829KDPbaHvyDgGarUp 1V2WmLdh8UMVx qTvqUC5wgMLbAKngNq1zz CadlNwqDZ2qHPBpsujko7 01ZyMsf2wvVSRhnGCbXBt qVOS3R48bv2Z1 NIZjACGtSWG6hHO5eW5wp GlnbjogbGVmdDsgdmVydG inGIayHSrmE402IQSxzBn nPlBhdGllbnQg EFcwQGa1G3TgIywnbUU+P O58PGYkNF85qWAiaNDmg7 mdaNk8AxRrUQItJXL0kCq uBAwnm5HsWLXv L00xoWFsx6J9LLNprRiul KJxKrAxlIG8vB9hSUmfso jim2hytvxfLyxjq1dgcg3 2bQ05F97kFHws ZHRoPSIzMCUiIHZhbGlnb t2pcY1fZo5+HAHuzLV3lN X3fV6wDPMvSnV6CCgzG21 9InRvcCIvPjxj y6xoh6mirRa3TtW6SLIja aJkbPmtMQS0w9OeAt85U9 9sIHdpZHRoPSIyMCUiIHZ cnHhcqw0hfC9n Ii8+FBYjdGU8rZK9cL5zG iTcVeU2IWdyQ835JmSzpZ JyLuiuU92wH3XmtAM+PHR lXsm7HCJubArg JB6wrBWgAWejYj7eAKE3I tClIuWzULmyU3DwQTMsrm mllmgfhBY7ORCfFFLqtO7 7Oi9hsPxoWEXr kILPeN6rxfist8baothbG sNtCKAhAIc7QSy0ROLggJ vyPmSoISK9XpX2CWX3eBF vvG2yrNvwbgku dC3oD4OhCGDyjmnrAt69r G4nEhWuQxJ0QZwcGhl+U0 6ZGWSPFQWQVKBBOnAEFR6 5WB02kQFme4P6 gQO8L0UrMJNtbytobsckk UN5OSQqOXNxwU76iMYeWY huXd0tr9F0n187CZQmEHS mnG56Cf4szMns QQYcdZZTnM2ogvtxj6lvi hwhCmXcRIZxLBw5FPc9QC HdlEtxReTqECU0JeB8UQU 6zMScoM5rsYyv mlxyiH3eOln+MTAvMTYvM Uf1MJgiqVB+IMNxGGY8pO qgBEviKNAyfV3vPJBqU1e 1RkDlQfU0DBkr T2LlBIYbpngyMn73cB6tA pMrXkE8CPwoF8SzydC3QR KooCJvXJeeHFA0R19zs8L 3MWNtOAHoCYZ5 aBO8wH2lqNafvwuxoCFrm DsgdmVydGljYWwtYWxpZ2 46IHRvcDsnPjQyIFllYXJ qOT27SB32jQSi s8F4oBU0S4RbDKYopxyla qtnaNO5CNLbVUBtwB20xK OeDQasTw2wy8Y9z968KQI xZWEymF31Qb3i cDggJAFtmBHNgS0pmlqdc 4rdvnbkIwGtUFZqJZq9TT j5AFAegNbuFzArLUZ0AoO 6SMM0ySWlkV0h oTgdqzdqdK6mZar+TWFsZ TwvdGQ+ODMjIJE1rMdvIR ngEZAagJ2lGBJiN1x6LqQ yIqP3TXaqP4Wv YQIddtayMt79bV8aSxMtL gR4BUmpO0GcdzN4WJEyrH KaPLttAXA6J54yn4F6YAM nHSJqQFJ9mWN7 pV3wdAtxjpoauNEnbTebw sUxhCvcYHwfSUjhF995WD ZjkSibIm30lDVggZhygaL 8L6NlRcuflUB+ IF71SURdGZ93tWKblMInk 6ptxMl7OpEbLVKaOLY5kF yyZKxjc5VxOXSsX36akOF mz8W8EAZzoCtm jZKbAlHsvBD1eI7zBRhpy qgru1pykklkHxdjh7urqq 45qS92O82pMEmwYAEkMNC zMCUiIHZhbGln rt7vpM5uCp9+NGHeyTI4x MC5wH2yQaPbGcU8RDotN2 54VaXjmAUbYywvi7ore7w coZe3OqQdULUo suAoxSzyWGB2i4JiCw77Y 29sIHdpZHRoPSIyMCUiIH OujZscnd2vpO0mIy6+PC9 fm5nsfg05oK78 dHI+DSPcGNF6bQdqURtsO UCkdN8oISvdQhZ0KWCgMu YwoR91jBRmYSxgDy2dkAx dqVmxEI8eFCNe rlgtw178EfVal1luJHFlp OLoLSxvSBI4Y28zq7U4TK RtIUAqGJS2eAU7mE8tsDg nbjogbGVmdDsg fuWaxSolHPunBQcqV019G YIxbLvpUxFlqEQqS9lyuk CEYW5jMngqeBO+PHRkIHN 0eWxlPSdwYWRk tE4jRLWfQ7p5RfGvYhN9Q OhiF4ScbrB2DGVgjWQzSD PbqDSRlL9bcfzos9qbmsr gIzAwMDAwMDt0 SXo7TFOifOzdWdUvDPG7W vJ0NNS9hYKsxO9mnPslys atoM1qTsc+RklOOjwvdGQ +GJOfDIB0sCcx WMkqHUClnN2aNDYtR2i3T xQbDwJ9FQklW9QyusO0FI IswDFsHKQcvOGOjS5tamm dw5irrutpYcUz PTHaZQd1NKp9GIZguRhuW zRzEXJ9WjQ4BDS9dNBjuY 6mgAgtrcgttZ2yBme+TVJ OOjwvdGQ+PHRk BRR4sOpuXFhyVDUpgX9qS XIwJ3m2FiIzJeS1UCwwD0 FwdyP6MVYtsJRqHWZyyFR WnK5tfacmm6fg cnwpDhKeHKKrUBl1SPd5M PSssBjzVdFwXMM2XiM5SH G0mJTcuT3oyVtethgafL2 wOyc+XDF9XCA8 VF12ZQ89N2VvEmzuhYTrk +PHRhYmxlIHdpZHRoPS ooPXDvAdZgpBlzDF8bZp2 yZGVyLWNvbGxh cHNlOiBj (more content not included)... Normal [facility] PROF CHEM 8 (BAS METB)on Anion gap [Moles/Vol] 8.3 mmol/L Normal [facility] Comment on above: Performed By: #### I NFLUAB #### [facility] [address] [place] [address] Dr. Deepak Greenfield Calcium [Mass/Vol] 8.5 mg/dL Normal 8.5-10.1 [facility] Comment on above: Performed By: #### I NFLUAB #### [facility] [address] [address] [address] Deepak Greenfield Chloride [Moles/Vol] 104 mmol/L Normal 98-107 [facility] Comment on above: Performed By: #### I NFLUAB #### [facility] [address] [address] [address] Deepak Greenfield CO2 [Moles/Vol] 30.0 mmol/L Normal 21.0-32.0 [facility] Comment on above: Performed By: #### I NFLUAB #### [facility] [address] [address] [address] Deepak Greenfield Creatinine [Mass/Vol] 0.46 mg/dL Critically low 0.70-1.30 [facility] Comment on above: Performed By: #### I NFLUAB #### [facility] [address] [place] [address] Dr. Deepak Greenfield EGFR-AF MONTSERRATIAN >60 Normal >=60 [facility] Comment on above: Performed By: #### I NFLUAB #### [facility] [address] [address] [address] Deepak Greenfield EGFR-NON AF MONTSERRATIAN >60 Normal >=60 [facility] Comment on above: Performed By: #### I NFLUAB #### [facility] [address] [address] [address] Deepak Greenfield Glucose [Mass/Vol] 152 mg/dL Critically high 74-106 [facility] Comment on above: Performed By: #### I NFLUAB #### [facility] [address] [address] [address] Deepak Greenfield Potassium [Moles/Vol] 4.3 mmol/L Normal 3.5-5.1 [facility] Comment on above: Performed By: #### I NFLUAB #### [facility] [address] [address] [address] Deepak Gerenfield Sodium [Moles/Vol] 138 mmol/L Normal 136-145 [facility] Comment on above: Performed By: #### I NFLUAB #### [facility] [address] [address] [address] Deepak Greenfield Urea nitrogen [Mass/Vol] 9.0 mg/dL Normal 7.0-18.0 [facility] Comment on above: Performed By: #### I NFLUAB #### [facility] [address] [place] [address] Dr. Deepak Greenfield Urea nitrogen/Creatinine [Mass ratio] 19.6 mg/mg Normal [facility] Comment on above: Performed By: #### I NFLUAB #### [facility] [address] [place] [address] Dr. Deepak Greenfield AMMONIAon 07-29-2022 Ammonia (P) [Moles/Vol] 69 umol/L Critically high 11-32 [facility] Comment on above: Performed By: #### A MM #### [facility] [address] [place] [address] Dr. Deepak Greenfield CBC AUTO DIFFon 07-29-2022 BASO # 0.0 103/ul Normal 0.0-0.1 [facility] Comment on above: Performed By: #### M G, CMP #### [facility] [address] [place] [address] Dr. Deepak Greenfield Basophils/100 WBC (Bld) 0.2 % Normal 0.2-2.0 [facility] Comment on above: Performed By: #### M G, CMP #### [facility] [address] [place] [address] Dr. Deepak Greenfield EO # 0.0 103/ul Normal 0.0-0.7 [facility] Comment on above: Performed By: #### M G, CMP #### [facility] [address] [place] [address] Dr. Deepak Greenfield Eosinophils/100 WBC (Bld) 0.0 % Critically low 0.9-7.0 [facility] Comment on above: Performed By: #### M G, CMP #### [facility] [address] [place] [address] Dr. Deepak Greenfield Erythrocyte distribution width (RBC) [Ratio] 13.2 % Normal 11.0-15.0 [facility] Comment on above: Performed By: #### M G, CMP #### [facility] [address] [place] [address] Dr. Deepak Greenfield Hematocrit (Bld) [Volume fraction] 33.1 % Critically low 42.0-54.0 [facility] Comment on above: Performed By: #### M G, CMP #### [facility] [address] [place] [address] Dr. Deepak Greenfield Hemoglobin (Bld) [Mass/Vol] 10.8 g/dL Critically low 14.0-18.0 [facility] Comment on above: Performed By: #### M G, CMP #### [facility] [address] [place] [address] Dr. Deepak Greenfield IG # 0.04 10e3/ul Critically high 0.00-0.03 [facility] Comment on above: Performed By: #### M G, CMP #### [facility] [address] [place] [address] Dr. Deepak Greenfield IG % 0.5 % Normal 0.0-0.5 [facility] Comment on above: Performed By: #### M G, CMP #### [facility] [address] [place] [address] Dr. Deepak Greenfield LYMPH # 1.1 103/ul Critically low 1.2-3.8 [facility] Comment on above: Performed By: #### M G, CMP #### [facility] [address] [place] [address] Dr. Deepak Greenfield Lymphocytes/100 WBC (Bld) 13.6 % Critically low 20.5-60.0 [facility] Comment on above: Performed By: #### M G, CMP #### [facility] [address] [place] [address] Dr. Deepak Greenfield MANUAL DIFF REQ NO Normal [facility] Comment on above: Performed By: #### M G, CMP #### [facility] [address] [place] [address] Dr. Deepak Greenfield MCH (RBC) [Entitic mass] 32.2 pg Normal 25.9-34.0 [facility] Comment on above: Performed By: #### M G, CMP #### [facility] [address] [place] [address] Dr. Deepak Greenfield MCHC (RBC) [Mass/Vol] 32.6 g/dL Normal 29.9-35.2 [facility] Comment on above: Performed By: #### M G, CMP #### [facility] [address] [place] [address] Dr. Deepak Greenfield MCV (RBC) [Entitic vol] 98.8 fL Critically high 80.0-94.0 [facility] Comment on above: Performed By: #### M G, CMP #### [facility] [address] [place] [address] Dr. Deepak Greenfield MONO # 0.3 103/ul Normal 0.3-0.8 [facility] Comment on above: Performed By: #### M G, CMP #### [facility] [address] [place] [address] Dr. Deepak Greenfield Monocytes/100 WBC (Bld) 3.8 % Normal 1.7-12.0 [facility] Comment on above: Performed By: #### M G, CMP #### [facility] [address] [place] [address] Dr. Deepak Greenfield NEUT # 6.7 103/ul Critically high 1.4-6.5 [facility] Comment on above: Performed By: #### M G, CMP #### [facility] [address] [place] [address] Dr. Deepak Greenfield Neutrophils/100 WBC (Bld) 81.9 % Critically high 43.0-75.0 [facility] Comment on above: Performed By: #### M G, CMP #### [facility] [address] [place] [address] Dr. Deepak Greenfield Platelet mean volume (Bld) [Entitic vol] 9.6 fL Normal 9.5-13.5 [facility] Comment on above: Performed By: #### M G, CMP #### [facility] [address] [place] [address] Dr. Deepak Greenfield PLT 257 103/ul Normal 150-450 [facility] Comment on above: Performed By: #### M G, CMP #### [facility] [address] [address] [address] Deepak Greenfield RBC 3.35 106/ul Critically low 4.70-6.10 [facility] Comment on above: Performed By: #### M G, CMP #### [facility] [address] [address] [address] Deepak Greenfield WBC 8.2 103/ul Normal 4.0-11.0 [facility] Comment on above: Performed By: #### M G, CMP #### [facility] [address] [place] [address] Dr. Deepak Greenfield LACTATE/LACTIC ACIDon 2022 Lactate [Moles/Vol] 1.1 mmol/L Normal 0.4-2.0 [facility] Comment on above: Performed By: #### I NFLUAB #### [facility] [address] [place] [address] Dr. Deepak Greenfield PROF CHEM 8 (BAS METB)on Anion gap [Moles/Vol] 9.4 mmol/L Normal [facility] Comment on above: Performed By: #### I NFLUAB #### [facility] [address] [place] [address] Dr. Deepak Greenfield Calcium [Mass/Vol] 8.0 mg/dL Critically low 8.5-10.1 [facility] Comment on above: Performed By: #### I NFLUAB #### [facility] [address] [place] [address] Dr. Deepak Greenfield Chloride [Moles/Vol] 105 mmol/L Normal 98-107 [facility] Comment on above: Performed By: #### I NFLUAB #### [facility] [address] [place] [address] Dr. Deepak Greenfield CO2 [Moles/Vol] 30.7 mmol/L Normal 21.0-32.0 [facility] Comment on above: Performed By: #### I NFLUAB #### [facility] [address] [address] [address] Deepak Greenfield Creatinine [Mass/Vol] 0.66 mg/dL Critically low 0.70-1.30 [facility] Comment on above: Performed By: #### I NFLUAB #### [facility] [address] [address] [address] Deepak Greenfiled EGFR-AF [place] >60 Normal >=60 [facility] Comment on above: Performed By: #### I NFLUAB #### [facility] [address] [address] [address] Deepak Greenfield EGFR-NON AF [place] >60 Normal >=60 [facility] Comment on above: Performed By: #### I NFLUAB #### [facility] [address] [address] [address] Deepak Greenfield Glucose [Mass/Vol] 177 mg/dL Critically high 74-106 [facility] Comment on above: Performed By: #### I NFLUAB #### [facility] [address] [address] [address] Deepak Greenfield Potassium [Moles/Vol] 4.1 mmol/L Normal 3.5-5.1 [facility] Comment on above: Performed By: #### I NFLUAB #### [facility] [address] [address] [address] Deepak Greenfield Sodium [Moles/Vol] 141 mmol/L Normal 136-145 [facility] Comment on above: Performed By: #### I NFLUAB #### [facility] [address] [address] [address] Deepak Greenfield Urea nitrogen [Mass/Vol] 9.0 mg/dL Normal 7.0-18.0 [facility] Comment on above: Performed By: #### I NFLUAB #### [facility] [address] [address] [address] Deepak Greenfield Urea nitrogen/Creatinine [Mass ratio] 13.6 mg/mg Normal [facility] Comment on above: Performed By: #### I NFLUAB #### [facility] [address] [place] [address] Dr. Deepak Greenfield AMMONIAon 07-28-2022 Ammonia (P) [Moles/Vol] 68 umol/L Critically high 11-32 [facility] Comment on above: Performed By: #### B MP #### [facility] [address] [place] [address] Dr. Deepak Greenfield CBC AUTO DIFFon 07-28-2022 BASO # 0.0 103/ul Normal 0.0-0.1 [facility] Comment on above: Performed By: #### C BC #### [facility] [address] [place] [address] Dr. Deepak Greenfield Basophils/100 WBC (Bld) 0.3 % Normal 0.2-2.0 [facility] Comment on above: Performed By: #### C BC #### [facility] [address] [place] [address] Dr. Deepak Greenfield EO # 0.0 103/ul Normal 0.0-0.7 [facility] Comment on above: Performed By: #### C BC #### [facility] [address] [place] [address] Dr. Deepak Greenfield Eosinophils/100 WBC (Bld) 0.0 % Critically low 0.9-7.0 [facility] Comment on above: Performed By: #### C BC #### [facility] [address] [place] [address] Dr. Deepak Greenfield Erythrocyte distribution width (RBC) [Ratio] 13.3 % Normal 11.0-15.0 [facility] Comment on above: Performed By: #### C BC #### [facility] [address] [place] [address] Dr. Deepak Greenfield Hematocrit (Bld) [Volume fraction] 37.0 % Critically low 42.0-54.0 [facility] Comment on above: Performed By: #### C BC #### [facility] [address] [place] [address] Dr. Deepak Greenfield Hemoglobin (Bld) [Mass/Vol] 12.3 g/dL Critically low 14.0-18.0 [facility] Comment on above: Performed By: #### C BC #### [facility] [address] [address] [address] Deepak Greenfield IG # 0.06 10e3/ul Critically high 0.00-0.03 [facility] Comment on above: Performed By: #### C BC #### [facility] [address] [address] [address] Deepak Greenfield IG % 0.5 % Normal 0.0-0.5 [facility] Comment on above: Performed By: #### C BC #### [facility] [address] [place] [address] Dr. Deepak Greenfield LYMPH # 2.9 103/ul Normal 1.2-3.8 [facility] Comment on above: Performed By: #### C BC #### [facility] [address] [place] [address] Dr. Deepak Greenfield Lymphocytes/100 WBC (Bld) 23.5 % Normal 20.5-60.0 [facility] Comment on above: Performed By: #### C BC #### [facility] [address] [place] [address] Dr. Deepak Greenfield MANUAL DIFF REQ NO Normal [facility] Comment on above: Performed By: #### C BC #### [facility] [address] [place] [address] Dr. Deepak Greenfield MCH (RBC) [Entitic mass] 32.4 pg Normal 25.9-34.0 [facility] Comment on above: Performed By: #### C BC #### [facility] [address] [place] [address] Dr. Deepak Greenfield MCHC (RBC) [Mass/Vol] 33.2 g/dL Normal 29.9-35.2 [facility] Comment on above: Performed By: #### C BC #### [facility] [address] [place] [address] Dr. Deepak Greenfield MCV (RBC) [Entitic vol] 97.4 fL Critically high 80.0-94.0 [facility] Comment on above: Performed By: #### C BC #### [facility] [address] [address] [address] Deepak Greenfield MONO # 1.0 103/ul Critically high 0.3-0.8 [facility] Comment on above: Performed By: #### C BC #### [facility] [address] [address] [address] Deepak Greenfield Monocytes/100 WBC (Bld) 8.0 % Normal 1.7-12.0 [facility] Comment on above: Performed By: #### C BC #### [facility] [address] [address] [address] Deepak Greenfield NEUT # 8.3 103/ul Critically high 1.4-6.5 [facility] Comment on above: Performed By: #### C BC #### [facility] [address] [place] [address] Dr. Deepak Greenfield Neutrophils/100 WBC (Bld) 67.7 % Normal 43.0-75.0 [facility] Comment on above: Performed By: #### C BC #### [facility] [address] [place] [address] Dr. Deepak Greenfield Platelet mean volume (Bld) [Entitic vol] 9.7 fL Normal 9.5-13.5 [facility] Comment on above: Performed By: #### C BC #### [facility] [address] [place] [address] Dr. Deepak Greenfield PLT 325 103/ul Normal 150-450 [facility] Comment on above: Performed By: #### C BC #### [facility] [address] [place] [address] Dr. Deepak Greenfield RBC 3.80 106/ul Critically low 4.70-6.10 [facility] Comment on above: Performed By: #### C BC #### [facility] [address] [place] [address] Dr. Deepak Greenfield WBC 12.2 103/ul Critically high 4.0-11.0 [facility] Comment on above: Performed By: #### C BC #### [facility] [address] [place] [address] Dr. Deepak Greenfield CULTURE BLOODon 07-28-2022 Microscopic examination of blood, culture Culture Observations: NO GROWTH AT 5 DAYS. Normal [facility] Comment on above: Performed By: #### B LDCX2 #### [facility] [address] [place] [address] Dr. Deepak Greenfield Microscopic examination of blood, culture Culture Observations: NO GROWTH AT 5 DAYS. Normal [facility] Comment on above: Performed By: #### C BC #### [facility] [address] [place] [address] Dr. Deepak Greenfield LACTATE/LACTIC ACIDon 2022 Lactate [Moles/Vol] 2.5 mmol/L Critically high 0.4-2.0 [facility] Comment on above: Performed By: #### C VDTBH #### [facility] [address] [place] [address] Dr. Deepak Greenfield PROF 14(COMP METB)on 023 Albumin [Mass/Vol] 3.1 g/dL Critically low 3.4-5.0 [facility] Comment on above: Performed By: #### C BC #### [facility] [address] [place] [address] Dr. Deepak Greenfield Albumin/Globulin [Mass ratio] 0.7 {ratio} Normal [facility] Comment on above: Performed By: #### C BC #### [facility] [address] [place] [address] Dr. Deepak Greenfield ALP [Catalytic activity/Vol] 51 U/L Normal 46-116 [facility] Comment on above: Performed By: #### C BC #### [facility] [address] [place] [address] Dr. Deepak Greenfield ALT [Catalytic activity/Vol] 106 U/L Critically high 16-63 [facility] Comment on above: Performed By: #### C BC #### [facility] [address] [place] [address] Dr. Deepak Greenfield Anion gap [Moles/Vol] 14.2 mmol/L [facility] Comment on above: Performed By: #### C BC #### [facility] [address] [address] [address] Deepak Greenfield AST [Catalytic activity/Vol] 81 U/L Critically high 15-37 [facility] Comment on above: Performed By: #### C BC #### [facility] [address] [address] [address] Deepak Greenfield Bilirubin [Mass/Vol] 0.4 mg/dL Normal 0.2-1.0 [facility] Comment on above: Performed By: #### C BC #### [facility] [address] [address] [address] Deepak Greenfield Calcium [Mass/Vol] 8.9 mg/dL Normal 8.5-10.1 [facility] Comment on above: Performed By: #### C BC #### [facility] [address] [address] [address] Deepak Greenfield Chloride [Moles/Vol] 105 mmol/L Normal 98-107 [facility] Comment on above: Performed By: #### C BC #### [facility] [address] [address] [address] Deepak Greenfield CO2 [Moles/Vol] 27.9 mmol/L Normal 21.0-32.0 [facility] Comment on above: Performed By: #### C BC #### [facility] [address] [address] [address] Deepak Greenfield Creatinine [Mass/Vol] 0.77 mg/dL Normal 0.70-1.30 [facility] Comment on above: Performed By: #### C BC #### [facility] [address] [address] [address] Deepak Greenfield EGFR-AF MONTSERRATIAN >60 Normal >=60 [facility] Comment on above: Performed By: #### C BC #### [facility] [address] [address] [address] Deepak Greenfield EGFR-NON AF MONTSERRATIAN >60 Normal >=60 [facility] Comment on above: Performed By: #### C BC #### [facility] [address] [place] [address] Dr. Deepak Greenfield Globulin (S) [Mass/Vol] 4.3 g/dL Normal [facility] Comment on above: Performed By: #### C BC #### [facility] [address] [place] [address] Dr. Deepak Greenfield Glucose [Mass/Vol] 162 mg/dL Critically high 74-106 T [facility] Comment on above: Performed By: #### C BC #### [facility] [address] [place] [address] Dr. Deepak Greenfield Potassium [Moles/Vol] 4.1 mmol/L Normal 3.5-5.1 [facility] Comment on above: Performed By: #### C BC #### [facility] [address] [place] [address] Dr. Deepak Greenfield Protein [Mass/Vol] 7.4 g/dL Normal 6.4-8.2 [facility] Comment on above: Performed By: #### C BC #### [facility] [address] [place] [address] Dr. Deepak Greenfield Sodium [Moles/Vol] 143 mmol/L Normal 136-145 [facility] Comment on above: Performed By: #### C BC #### [facility] [address] [place] [address] Dr. Deepak Greenfield Urea nitrogen [Mass/Vol] 12.0 mg/dL Normal 7.0-18.0 [facility] Comment on above: Performed By: #### C BC #### [facility] [address] [place] [address] Dr. Deepak Greenfield Urea nitrogen/Creatinine [Mass ratio] 15.6 mg/mg Normal [facility] Comment on above: Performed By: #### C BC #### [facility] [address] [place] [address] Dr. Deepak Greenfield RESPIRATORY PANEL PLUSon Adenovirus Not detected Normal NOT DETECTED [facility] Comment on above: Performed By: #### B MP #### [facility] [address] [place] [address] Dr. Deepak Ocampo Parapertusis Not detected Normal NOT DETECTED [facility] Comment on above: Performed By: #### B MP #### [facility] [address] [place] [address] Dr. Deepak Ocampo Pertussis Not detected Normal NOT DETECTED [facility] Comment on above: Performed By: #### B MP #### [facility] [address] [place] [address] Dr. Deepak Greenfield Chlamydia Pneumoniae Not detected Normal NOT DETECTED [facility] Comment on above: Performed By: #### B MP #### [facility] [address] [place] [address] Dr. Deepak Greenfield Coronavirus 229E Not detected Normal NOT DETECTED [facility] Comment on above: Performed By: #### B MP #### [facility] [address] [place] [address] Dr. Deepak Greenfield Coronavirus HKU1 Not detected Normal NOT DETECTED [facility] Comment on above: Performed By: #### B MP #### [facility] [address] [place] [address] Dr. Deepak Greenfield Coronavirus NL63 Not detected Normal NOT DETECTED [facility] Comment on above: Performed By: #### B MP #### [facility] [address] [place] [address] Dr. Deepak Greenfield Coronavirus OC43 Not detected Normal NOT DETECTED [facility] Comment on above: Performed By: #### B MP #### [facility] [address] [place] [address] Dr. Deepak Greenfield Influenza A H1 Not detected Normal NOT DETECTED [facility] Comment on above: Performed By: #### B MP #### [facility] [address] [place] [address] Dr. Deepak Greenfield Influenza A H1 2009 Not detected Normal NOT DETECTED [facility] Comment on above: Performed By: #### B MP #### [facility] [address] [place] [address] Dr. Deepak Greenfield Influenza A H3 Not detected Normal NOT DETECTED [facility] Comment on above: Performed By: #### B MP #### [facility] [address] [address] [address] Deepak Greenfield Influenza B Not detected Normal NOT DETECTED [facility] Comment on above: Performed By: #### B MP #### [facility] [address] [address] [address] Deepak Greenfield Metapneumovirus Detected Abnormal NOT DETECTED [facility] Comment on above: Performed By: #### B MP #### [facility] [address] [address] [address] Deepak Greenfield Mycoplas. Pneumoniae Not detected Normal NOT DETECTED [facility] Comment on above: Performed By: #### B MP #### [facility] [address] [address] [address] Deepak Greenfield Parainfluenza 1 Not detected Normal NOT DETECTED [facility] Comment on above: Performed By: #### B MP #### [facility] [address] [address] [address] Deepak Greenfield Parainfluenza 2 Not detected Normal NOT DETECTED [facility] Comment on above: Performed By: #### B MP #### [facility] [address] [address] [address] Deepak Greenfield Parainfluenza 3 Not detected Normal NOT DETECTED [facility] Comment on above: Performed By: #### B MP #### [facility] [address] [place] [address] Dr. Deepak Greenfield Parainfluenza 4 Not detected Normal NOT DETECTED [facility] Comment on above: Performed By: #### B MP #### [facility] [address] [place] [address] Dr. Deepak Greenfield Rhino/Enterovirus Not detected Normal NOT DETECTED [facility] Comment on above: Performed By: #### B MP #### [facility] [address] [address] [address] Deepak Greenfield RP2 Header 1 RESPIRATORY PANEL: VIRUSES Normal [facility] Comment on above: Performed By: #### B MP #### [facility] [address] [address] [address] Yilan Greenfield RP2 Header 2 RESPIRATORY PANEL: BACTERIA Normal [facility] Comment on above: Performed By: #### B MP #### [facility] [address] [place] [address] Dr. Deepak Greenfield RSV Not detected Normal NOT DETECTED [facility] Comment on above: Performed By: #### B MP #### [facility] [address] [place] [address] Dr. Deepak Greenfield SARS-CoV-2 (COVID-19) RNA CINDY+probe Ql (Unsp spec) Not detected Normal NOT DETECTED [facility] Comment on above: Performed By: #### B MP #### [facility] [address] [place] [address] Dr. Deepak Greenfield XR CHEST 1 Von [...] Akua PEREZ Date: 2022-07-28 20:23 Normal [facility] AMMONIAon 07-27-2022 Ammonia (P) [Moles/Vol] 76 umol/L Critically high [facility] Comment on above: Performed By: #### M G, CMP #### [facility] [address] [place] [address] Dr. Deepak Greenfield CBC W MANUAL DIFFon 07-28-19 23 ATYPICAL LYMPH # Normal [facility] Comment on above: Performed By: #### M G, CMP #### [facility] [address] [place] [address] Dr. Deepak Greenfield ATYPICAL LYMPH % Normal [facility] Comment on above: Performed By: #### M G, CMP #### [facility] [address] [place] [address] Dr. Deepak Greenfield BAND # 0.4 103/ul Critically high 0.0-0.3 [facility] Comment on above: Performed By: #### M G, CMP #### [facility] [address] [place] [address] Dr. Deepak Greenfield BAND % 4 % Normal 0-5 [facility] Comment on above: Performed By: #### M G, CMP #### [facility] [address] [place] [address] Dr. Deepak Greenfield BASOM # 0.00 103/ul Normal 0.00-0.10 [facility] Comment on above: Performed By: #### M G, CMP #### [facility] [address] [place] [address] Dr. Deepak Greenfield BASOM % 0.0 % Critically low 0.2-2.0 [facility] Comment on above: Performed By: #### M G, CMP #### [facility] [address] [place] [address] Dr. Deepak Greenfield BLAST # Normal [facility] Comment on above: Performed By: #### M G, CMP #### [facility] [address] [place] [address] Dr. Deepak Greenfield BLAST % Normal [facility] Comment on above: Performed By: #### M G, CMP #### [facility] [address] [place] [address] Dr. Deepak Greenfield CORRECTED WBC Normal 4.0-11.0 [facility] Comment on above: Performed By: #### M G, CMP #### [facility] [address] [place] [address] Dr. Deepak Greenfield EOS # 0.00 103/ul Normal 0.00-0.70 [facility] Comment on above: Performed By: #### M G, CMP #### [facility] [address] [address] [address] Deepak Greenfield EOS% 0.0 % Critically low 0.9-7.0 [facility] Comment on above: Performed By: #### M G, CMP #### [facility] [address] [place] [address] Dr. Deepak Greenfield HCT 29.6 % Critically low 42.0-54.0 [facility] Comment on above: Performed By: #### M G, CMP #### [facility] [address] [address] [address] Deepak Greenfield HGB 10.4 g/dl Critically low 14.0-18.0 [facility] Comment on above: Performed By: #### M G, CMP #### [facility] [address] [place] [address] Dr. Deepak Greenfield LYMPHM # 0.71 103/ul Critically low 1.20-3.80 [facility] Comment on above: Performed By: #### M G, CMP #### [facility] [address] [place] [address] Dr. Deepak Greenfield LYMPHM% 8.0 % Critically low 20.5-60.0 [facility] Comment on above: Performed By: #### M G, CMP #### [facility] [address] [place] [address] Dr. Deepak Greenfield MCH 33.0 pg Normal 25.9-34.0 [facility] Comment on above: Performed By: #### M G, CMP #### [facility] [address] [place] [address] Dr. Deepak Greenfield MCHC 35.1 g/dl Normal 29.9-35.2 [facility] Comment on above: Performed By: #### M G, CMP #### [facility] [address] [place] [address] Dr. Deepak Greenfield MCV 94.0 fL Normal 80.0-94.0 [facility] Comment on above: Performed By: #### M G, CMP #### [facility] [address] [place] [address] Dr. Deepak Greenfield METAMYELOCYTE # Normal [facility] Comment on above: Performed By: #### M G, CMP #### [facility] [address] [address] [address] Deepak Greenfield METAMYELOCYTE % Normal [facility] Comment on above: Performed By: #### M G, CMP #### [facility] [address] [address] [address] Deepak Greenfield MONOM# 0.71 103/ul Normal 0.30-0.80 [facility] Comment on above: Performed By: #### M G, CMP #### [facility] [address] [address] [address] Deepak Greenfield MONOM% 8.0 % Normal 1.7-12.0 [facility] Comment on above: Performed By: #### M G, CMP #### [facility] [address] [place] [address] Dr. Deepak Greenfield MPV 9.6 fL Normal 9.5-13.5 [facility] Comment on above: Performed By: #### M G, CMP #### [facility] [address] [place] [address] Dr. Deepak Greenfield MYELOCYTE # Normal [facility] Comment on above: Performed By: #### M G, CMP #### [facility] [address] [place] [address] Dr. Deepak Greenfield MYELOCYTE % Normal [facility] Comment on above: Performed By: #### M G, CMP #### [facility] [address] [place] [address] Dr. Deepak Greenfield NRBC Normal [facility] Comment on above: Performed By: #### M G, CMP #### [facility] [address] [address] [address] Deepak Greenfield PLT 267 103/ul Normal 150-450 [facility] Comment on above: Performed By: #### M G, CMP #### [facility] [address] [address] [address] Deepak Greenfield RBC 3.15 106/ul Critically low 4.70-6.10 [facility] Comment on above: Performed By: #### M G, CMP #### [facility] [address] [address] [address] Deepak Greenfield RDW 12.9 % Normal 11.0-15.0 [facility] Comment on above: Performed By: #### M G, CMP #### [facility] [address] [address] [address] Deepak Greenfield SEG # 7.12 103/ul Critically high 1.40-6.50 [facility] Comment on above: Performed By: #### M G, CMP #### [facility] [address] [address] [address] Deepak Greenfield SEG % 80.0 % Critically high 43.0-75.0 [facility] Comment on above: Performed By: #### M G, CMP #### [facility] [address] [place] [address] Dr. Deepak Greenfield WBC 8.9 103/ul Normal 4.0-11.0 [facility] Comment on above: Performed By: #### M G, CMP #### [facility] [address] [place] [address] Dr. eDepak Greenfield PROF CHEM 8 (BAS METB)on Anion gap [Moles/Vol] 12.4 mmol/L Normal [facility] Comment on above: Performed By: #### C BC #### [facility] [address] [place] [address] Dr. Deepak Greenfield Calcium [Mass/Vol] 8.2 mg/dL Critically low 8.5-10.1 [facility] Comment on above: Performed By: #### C BC #### [facility] [address] [place] [address] Dr. Deepak Greenfield Chloride [Moles/Vol] 101 mmol/L Normal 98-107 [facility] Comment on above: Performed By: #### C BC #### [facility] [address] [place] [address] Dr. Deepak Greenfield CO2 [Moles/Vol] 25.0 mmol/L Normal 21.0-32.0 [facility] Comment on above: Performed By: #### C BC #### [facility] [address] [address] [address] Deepak Greenfield Creatinine [Mass/Vol] 0.53 mg/dL Critically low 0.70-1.30 [facility] Comment on above: Performed By: #### C BC #### [facility] [address] [address] [address] Deepak Greenfield EGFR-AF MONTSERRATIAN >60 Normal >=60 [facility] Comment on above: Performed By: #### C BC #### [facility] [address] [address] [address] Deepak Greenfield EGFR-NON AF MONTSERR[place]IAN >60 Normal >=60 [facility] Comment on above: Performed By: #### C BC #### [facility] [address] [place] [address] Dr. Deepak Greenfield Glucose [Mass/Vol] 161 mg/dL Critically high 74-106 T [facility] Comment on above: Performed By: #### C BC #### [facility] [address] [place] [address] Dr. Deepak Greenfield Potassium [Moles/Vol] 4.4 mmol/L Normal 3.5-5.1 [facility] Comment on above: Performed By: #### C BC #### [facility] [address] [place] [address] Dr. Deepak Greenfield Sodium [Moles/Vol] 134 mmol/L Critically low 136-145 [facility] Comment on above: Performed By: #### C BC #### [facility] [address] [place] [address] Dr. Deepak Greenfield Urea nitrogen [Mass/Vol] 13.0 mg/dL Normal 7.0-18.0 [facility] Comment on above: Performed By: #### C BC #### [facility] [address] [address] [address] Deepak Greenfield Urea nitrogen/Creatinine [Mass ratio] 24.5 mg/mg Normal [facility] Comment on above: Performed By: #### C BC #### [facility] [address] [place] [address] Dr. Deepak Greenfield AMMONIAon 07-26-2022 Ammonia (P) [Moles/Vol] 56 umol/L Critically high 11-32 [facility] Comment on above: Performed By: #### M G, CMP #### [facility] [address] [place] [address] Dr. Deepak Greenfield CARDIAC BEATRIS ADMITon 023 CK [Catalytic activity/Vol] 83 U/L Normal 39-308 [facility] Comment on above: Performed By: #### B MP #### [facility] [address] [place] [address] Dr. Deepak Greenfield CK.MB [Mass/Vol] 0.86 ng/mL Normal <=3.60 [facility] Comment on above: Performed By: #### B MP #### [facility] [address] [place] [address] Dr. Deepak Greenfield HSTROP 7.4 pg/mL Normal 4.0-76.1 [facility] Comment on above: Result Comment: CUT- OFF POINTS HAVE BEEN ESTABLISHED BASED ON THE FOURTH UNIVERSAL DEFINITIONS OF MYOCARDIAL INFARCTION. THE UPPER REFERENCE LIMIT (URL) OF TROPONIN, DEFINED THE 99TH PERCENTILE OF cTnI DISTRIBUTION IN A REFERENCE POPULATION, HAS BEEN CONFIRMED THE DECISION THRESHOLD FOR [place] DIAGNOSIS. Performed By: #### B MP #### [facility] [address] [place] [address] Dr. Deepak Greenfield VALE 46 ng/mL Normal 16-96 [facility] Comment on above: Performed By: #### B MP #### [facility] [address] [place] [address] Dr. Deepak Greenfield CBC AUTO DIFFon 07-26-2022 BASO # 0.1 103/ul Normal 0.0-0.1 [facility] Comment on above: Performed By: #### M G, CMP #### [facility] [address] [place] [address] Dr. Deepak Greenfield Basophils/100 WBC (Bld) 0.5 % Normal 0.2-2.0 [facility] Comment on above: Performed By: #### M G, CMP #### [facility] [address] [place] [address] Dr. Deepak Greenfield EO # 0.2 103/ul Normal 0.0-0.7 [facility] Comment on above: Performed By: #### M G, CMP #### [facility] [address] [place] [address] Dr. Deepak Greenfield Eosinophils/100 WBC (Bld) 2.1 % Normal 0.9-7.0 [facility] Comment on above: Performed By: #### M G, CMP #### [facility] [address] [place] [address] Dr. Deepak Greenfield Erythrocyte distribution width (RBC) [Ratio] 13.2 % Normal 11.0-15.0 [facility] Comment on above: Performed By: #### M G, CMP #### [facility] [address] [place] [address] Dr. Deepak Greenfield Hematocrit (Bld) [Volume fraction] 36.7 % Critically low 42.0-54.0 [facility] Comment on above: Performed By: #### M G, CMP #### [facility] [address] [place] [address] Dr. Deepak Greenfield Hemoglobin (Bld) [Mass/Vol] 12.4 g/dL Critically low 14.0-18.0 [facility] Comment on above: Performed By: #### M G, CMP #### [facility] [address] [place] [address] Dr. Deepak Greenfield IG # 0.04 10e3/ul Critically high 0.00-0.03 [facility] Comment on above: Performed By: #### M G, CMP #### [facility] [address] [place] [address] Dr. Deepak Greenfield IG % 0.4 % Normal 0.0-0.5 [facility] Comment on above: Performed By: #### M G, CMP #### [facility] [address] [place] [address] Dr. Deepak Greenfield LYMPH # 1.7 103/ul Normal 1.2-3.8 [facility] Comment on above: Performed By: #### M G, CMP #### [facility] [address] [place] [address] Dr. Deepak Greenfield Lymphocytes/100 WBC (Bld) 15.6 % Critically low 20.5-60.0 [facility] Comment on above: Performed By: #### M G, CMP #### [facility] [address] [place] [address] Dr. Deepak Greenfield MANUAL DIFF REQ NO Normal [facility] Comment on above: Performed By: #### M G, CMP #### [facility] [address] [place] [address] Dr. Deepak Greenfield MCH (RBC) [Entitic mass] 32.5 pg Normal 25.9-34.0 [facility] Comment on above: Performed By: #### M G, CMP #### [facility] [address] [place] [address] Dr. Deepak Greenfield MCHC (RBC) [Mass/Vol] 33.8 g/dL Normal 29.9-35.2 [facility] Comment on above: Performed By: #### M G, CMP #### [facility] [address] [place] [address] Dr. Deepak Greenfield MCV (RBC) [Entitic vol] 96.3 fL Critically high 80.0-94.0 [facility] Comment on above: Performed By: #### M G, CMP #### [facility] [address] [place] [address] Dr. Deepak Greenfield MONO # 1.4 103/ul Critically high 0.3-0.8 [facility] Comment on above: Performed By: #### M G, CMP #### [facility] [address] [place] [address] Dr. Deepak Greenfield Monocytes/100 WBC (Bld) 12.8 % Critically high 1.7-12.0 [facility] Comment on above: Performed By: #### M G, CMP #### [facility] [address] [place] [address] Dr. Deepak Greenfield NEUT # 7.4 103/ul Critically high 1.4-6.5 [facility] Comment on above: Performed By: #### M G, CMP #### [facility] [address] [place] [address] Dr. Deepak Greenfield Neutrophils/100 WBC (Bld) 68.6 % Normal 43.0-75.0 [facility] Comment on above: Performed By: #### M G, CMP #### [facility] [address] [place] [address] Dr. Deepak Greenfield Platelet mean volume (Bld) [Entitic vol] 9.5 fL Normal 9.5-13.5 [facility] Comment on above: Performed By: #### M G, CMP #### [facility] [address] [place] [address] Dr. Deepak Greenfield PLT 314 103/ul Normal 150-450 [facility] Comment on above: Performed By: #### Karishma G, CMP #### [facility] [address] [place] [address] Dr. Deepak Greenfield RBC 3.81 106/ul Critically low 4.70-6.10 [facility] Comment on above: Performed By: #### M G, CMP #### [facility] [address] [place] [address] Dr. Deepak Greenfield WBC 10.8 103/ul Normal 4.0-11.0 [facility] Comment on above: Performed By: #### M G, CMP #### [facility] [address] [place] [address] Dr. Deepak Greenfield [facility]on SARS-CoV-2 (COVID-19) RNA CINDY+probe Ql (Unsp spec) Not detected Normal NOT DETECTED [facility] Comment on above: Result Comment: When [...] for this test is supported by the [place] of [employer] and Human Service's declaration that [...] used). Performed By: #### C VDTBH #### [facility] [address] [place] [address] Dr. Deepak Greenfield INFLUENZA A AND B [facility] BEL[facility] Normal [facility] Comment on above: Result Comment: Nega tive for Flu A protein angiten. Infection due to Flu A cannot be ruled out. Flu A angiten in the sample may be below the detection limit of the test. Performed By: #### I NFLUAB #### [facility] [address] [place] [address] Dr. Deepak Greenfield INFLUBNEG SEE BELOW Normal [facility] Comment on above: Result Comment: Nega tive for Flu B protein antigen. Infection due to Flu B cannot be ruled out. Flu B antigen in the sample may be below the detection limit of the test. Performed By: #### I NFLUAB #### [facility] [address] [place] [address] Dr. Deepak Greenfield INFLUENZA A AG Negative Normal NEGATIVE SEE COMMENT [facility] Comment on above: Performed By: #### I NFLUAB #### [facility] [address] [place] [address] Dr. Deepak Greenfield INFLUENZA B AG Negative Normal NEGATIVE SEE COMMENT [facility] Comment on above: Performed By: #### I NFLUAB #### [facility] [address] [place] [address] Dr. Deepak Greenfield LACTATE/LACTIC ACIDon 2022 Lactate [Moles/Vol] 1.2 mmol/L Normal 0.4-2.0 [facility] Comment on above: Performed By: #### M G, CMP #### [facility] [address] [address] [address] Deepak Greenfield PROF 14(COMP METB)on 023 Albumin [Mass/Vol] 3.3 g/dL Critically low 3.4-5.0 [facility] Comment on above: Performed By: #### B MP #### [facility] [address] [address] [address] Deepak Greenfield Albumin/Globulin [Mass ratio] 0.8 {ratio} Normal [facility] Comment on above: Performed By: #### B MP #### [facility] [address] [place] [address] Dr. Deepak Greenfield ALP [Catalytic activity/Vol] 45 U/L Critically low 46-116 [facility] Comment on above: Performed By: #### B MP #### [facility] [address] [place] [address] Dr. Deepak Greenfield ALT [Catalytic activity/Vol] 114 U/L Critically high 16-63 [facility] Comment on above: Performed By: #### B MP #### [facility] [address] [place] [address] Dr. Deepak Greenfield Anion gap [Moles/Vol] 14.5 mmol/L Normal [facility] Comment on above: Performed By: #### B MP #### [facility] [address] [place] [address] Dr. Deepak Greenfield AST [Catalytic activity/Vol] 71 U/L Critically high 15-37 [facility] Comment on above: Performed By: #### B MP #### [facility] [address] [place] [address] Dr. Deepak Greenfield Bilirubin [Mass/Vol] 0.7 mg/dL Normal 0.2-1.0 [facility] Comment on above: Performed By: #### B MP #### [facility] [address] [place] [address] Dr. Deepak Greenfield Calcium [Mass/Vol] 9.1 mg/dL Normal 8.5-10.1 [facility] Comment on above: Performed By: #### B MP #### [facility] [address] [address] [address] Deepak Greenfield Chloride [Moles/Vol] 98 mmol/L Normal 98-107 [facility] Comment on above: Performed By: #### B MP #### [facility] [address] [address] [address] Deepak Greenfield CO2 [Moles/Vol] 27.4 mmol/L Normal 21.0-32.0 [facility] Comment on above: Performed By: #### B MP #### [facility] [address] [place] [address] Dr. Deepak Greenfield Creatinine [Mass/Vol] 0.65 mg/dL Critically low 0.70-1.30 [facility] Comment on above: Performed By: #### B MP #### [facility] [address] [place] [address] Dr. Deepak Greenfield EGFR-AF [place]TSERRAT[place] >60 Normal >=60 [facility] Comment on above: Performed By: #### B MP #### [facility] [address] [place] [address] Dr. Deepak Greenfield EGFR-NON AF [place]ERR[place] >60 Normal >=60 [facility] Comment on above: Performed By: #### B MP #### [facility] [address] [place] [address] Dr. Deepak Greenfield Globulin (S) [Mass/Vol] 4.2 g/dL Normal [facility] Comment on above: Performed By: #### B MP #### [facility] [address] [address] [address] Deepak Greenfield Glucose [Mass/Vol] 105 mg/dL Normal 74-106 [facility] Comment on above: Performed By: #### B MP #### [facility] [address] [place] [address] Dr. Deepak Greenfield Potassium [Moles/Vol] 3.9 mmol/L Normal 3.5-5.1 [facility] Comment on above: Performed By: #### B MP #### [facility] [address] [place] [address] Dr. Deepak Greenfield Protein [Mass/Vol] 7.5 g/dL Normal 6.4-8.2 [facility] Comment on above: Performed By: #### B MP #### [facility] [address] [address] [address] Deepak Greenfield Sodium [Moles/Vol] 136 mmol/L Normal 136-145 [facility] Comment on above: Performed By: #### B MP #### [facility] [address] [address] [address] Deepak Greenfield Urea nitrogen [Mass/Vol] 13.0 mg/dL Normal 7.0-18.0 [facility] Comment on above: Performed By: #### B MP #### [facility] [address] [place] [address] Dr. Deepak Greenfield Urea nitrogen/Creatinine [Mass ratio] 20.0 mg/mg Normal [facility] Comment on above: Performed By: #### B MP #### [facility] [address] [place] [address] Dr. Deepak Greenfield XR CHEST 1 Von [...] by: ANICETO GARCIA Date: 2022-07-26 12:27 Normal [facility] Consent for Treatmenton Consent for Treatment [id number]:127 Normal [facility] Physician Orderon 07-23-2022 Physician Order [id number] 1.00CD:127 Normal [facility] XR Adult Swallowing Function w/ Videoon [...] mGy = 11.70 DAP = 270.92 Normal [facility] AMMONIAon 06-03-2022 Ammonia (P) [Moles/Vol] 112 umol/L Critically high 11-32 [facility] Comment on above: Performed By: #### A MM #### [facility] [address] [place] [address] Dr. Deepak Greenfield DEPAKENE/ VALPROIC ACIDon DEPAKENE 94.0 ug/ml Normal 50.0-100.0 [facility] Comment on above: Performed By: #### C BC #### [facility] [address] [place] [address] Dr. Deepak Greenfield LIVER PROFILEon 06-03-2022 Albumin [Mass/Vol] 3.6 g/dL Normal 3.4-5.0 [facility] Comment on above: Performed By: #### C BC #### [facility] [address] [place] [address] Dr. Deepak Greenfield Albumin/Globulin [Mass ratio] 0.9 {ratio} Normal [facility] Comment on above: Performed By: #### C BC #### [facility] [address] [address] [address] Deepak Greenfield ALP [Catalytic activity/Vol] 55 U/L Normal 46-116 [facility] Comment on above: Performed By: #### C BC #### [facility] [address] [address] [address] Deepak Greenfield ALT [Catalytic activity/Vol] 76 U/L Critically high 16-63 [facility] Comment on above: Performed By: #### C BC #### [facility] [address] [place] [address] Dr. Deepak Greenfield AST [Catalytic activity/Vol] 51 U/L Critically high 15-37 [facility] Comment on above: Performed By: #### C BC #### [facility] [address] [place] [address] Dr. Deepak Greenfield BILI, CONJUGATED 0.1 mg/dL Normal 0.0-0.2 [facility] Comment on above: Performed By: #### C BC #### [facility] [address] [place] [address] Dr. Deepak Greenfield Bilirubin [Mass/Vol] 0.4 mg/dL Normal 0.2-1.0 [facility] Comment on above: Performed By: #### C BC #### [facility] [address] [place] [address] Dr. Deepak Greenfield Globulin (S) [Mass/Vol] 4.1 g/dL Normal [facility] Comment on above: Performed By: #### C BC #### [facility] [address] [place] [address] Dr. Deepak Greenfield Protein [Mass/Vol] 7.7 g/dL Normal 6.4-8.2 [facility] Comment on above: Performed By: #### C BC #### [facility] [address] [place] [address] Dr. Deepak Greenfield AMMONIAon 04-22-2022 Ammonia (P) [Moles/Vol] 108 umol/L Critically high 11-32 [facility] Comment on above: Performed By: #### B MP #### [facility] [address] [place] [address] Dr. Deepak Greenfield CBC AUTO DIFFon 04-22-2022 BASO # 0.0 103/ul Normal 0.0-0.1 [facility] Comment on above: Performed By: #### C BC #### [facility] [address] [place] [address] Dr. Deepak Greenfield Basophils/100 WBC (Bld) 0.5 % Normal 0.2-2.0 [facility] Comment on above: Performed By: #### C BC #### [facility] [address] [place] [address] Dr. Deepak Greenfield EO # 0.1 103/ul Normal 0.0-0.7 [facility] Comment on above: Performed By: #### C BC #### [facility] [address] [place] [address] Dr. Deepak Greenfield Eosinophils/100 WBC (Bld) 1.4 % Normal 0.9-7.0 [facility] Comment on above: Performed By: #### C BC #### [facility] [address] [place] [address] Dr. Deepak Greenfield Erythrocyte distribution width (RBC) [Ratio] 14.2 % Normal 11.0-15.0 [facility] Comment on above: Performed By: #### C BC #### [facility] [address] [place] [address] Dr. Deepak Greenfield Hematocrit (Bld) [Volume fraction] 37.0 % Critically low 42.0-54.0 [facility] Comment on above: Performed By: #### C BC #### [facility] [address] [place] [address] Dr. Deepak Greenfield Hemoglobin (Bld) [Mass/Vol] 12.3 g/dL Critically low 14.0-18.0 [facility] Comment on above: Performed By: #### C BC #### [facility] [address] [place] [address] Dr. Deepak Greenfield IG # 0.00 10e3/ul Normal 0.00-0.03 [facility] Comment on above: Performed By: #### C BC #### [facility] [address] [place] [address] Dr. Deepak Greenfield IG % 0.0 % Normal 0.0-0.5 [facility] Comment on above: Performed By: #### C BC #### [facility] [address] [place] [address] Dr. Deepak Greenfield LYMPH # 3.3 103/ul Normal 1.2-3.8 [facility] Comment on above: Performed By: #### C BC #### [facility] [address] [place] [address] Dr. Deepak Greenfield Lymphocytes/100 WBC (Bld) 51.5 % Normal 20.5-60.0 [facility] Comment on above: Performed By: #### C BC #### [facility] [address] [place] [address] Dr. Deepak Greenfield MANUAL DIFF REQ NO Normal [facility] Comment on above: Performed By: #### C BC #### [facility] [address] [place] [address] Dr. Deepak Greenfield MCH (RBC) [Entitic mass] 32.2 pg Normal 25.9-34.0 [facility] Comment on above: Performed By: #### C BC #### [facility] [address] [place] [address] Dr. Deepak Greenfield MCHC (RBC) [Mass/Vol] 33.2 g/dL Normal 29.9-35.2 [facility] Comment on above: Performed By: #### C BC #### [facility] [address] [place] [address] Dr. Deepak Greenfield MCV (RBC) [Entitic vol] 96.9 fL Critically high 80.0-94.0 [facility] Comment on above: Performed By: #### C BC #### [facility] [address] [place] [address] Dr. Deepak Greenfield MONO # 0.6 103/ul Normal 0.3-0.8 [facility] Comment on above: Performed By: #### C BC #### [facility] [address] [address] [address] Deepak Greenfield Monocytes/100 WBC (Bld) 9.7 % Normal 1.7-12.0 [facility] Comment on above: Performed By: #### C BC #### [facility] [address] [address] [address] Deepak Greenfield NEUT # 2.4 103/ul Normal 1.4-6.5 [facility] Comment on above: Performed By: #### C BC #### [facility] [address] [place] [address] Dr. Deepak Greenfield Neutrophils/100 WBC (Bld) 36.9 % Critically low 43.0-75.0 [facility] Comment on above: Performed By: #### C BC #### [facility] [address] [place] [address] Dr. Deepak Greenfield Platelet mean volume (Bld) [Entitic vol] 10.2 fL Normal 9.5-13.5 [facility] Comment on above: Performed By: #### C BC #### [facility] [address] [place] [address] Dr. Deepak Greenfield PLT 248 103/ul Normal 150-450 [facility] Comment on above: Performed By: #### C BC #### [facility] [address] [place] [address] Dr. Deepak Greenfield RBC 3.82 106/ul Critically low 4.70-6.10 [facility] Comment on above: Performed By: #### C BC #### [facility] [address] [place] [address] Dr. Deepak Greenfield WBC 6.5 103/ul Normal 4.0-11.0 [facility] Comment on above: Performed By: #### C BC #### [facility] [address] [place] [address] Dr. Deepak Greenfield FERRITINon 04-22-2022 Ferritin [Mass/Vol] 152.0 ng/mL Normal 26.0-388.0 [facility] Comment on above: Performed By: #### M G, CMP #### [facility] [address] [place] [address] Dr. Deepak Greenfield IRONon 04-22-2022 Iron [Mass/Vol] 136.0 ug/dL Normal 65.0-175.0 [facility] Comment on above: Performed By: #### M G, CMP #### [facility] [address] [place] [address] Dr. Deepak Greenfield MAGNESIUMon 04-22-2022 Magnesium [Mass/Vol] 1.6 mg/dL Critically low 1.8-2.4 [facility] Comment on above: Performed By: #### I NFLUAB #### [facility] [address] [place] [address] Dr. Deepak Greenfield VITAMIN B12on 04-22-2022 Cobalamin (Vitamin B12) [Mass/Vol] 545.0 pg/mL Normal 193.0-986.0 [facility] Comment on above: Performed By: #### M G, CMP #### [facility] [address] [place] [address] Dr. Deepak Greenfield CBC AUTO DIFFon 03-19-2022 BASO # 0.0 103/ul Normal 0.0-0.1 [facility] Comment on above: Performed By: #### M G, CMP #### [facility] [address] [place] [address] Dr. Deepak Greenfield Basophils/100 WBC (Bld) 0.5 % Normal 0.2-2.0 [facility] Comment on above: Performed By: #### M G, CMP #### [facility] [address] [place] [address] Dr. Deepak Greenfield EO # 0.2 103/ul Normal 0.0-0.7 [facility] Comment on above: Performed By: #### M G, CMP #### [facility] [address] [place] [address] Dr. Deepak Greenfield Eosinophils/100 WBC (Bld) 2.0 % Normal 0.9-7.0 [facility] Comment on above: Performed By: #### M G, CMP #### [facility] [address] [place] [address] Dr. Deepak Greenfield Erythrocyte distribution width (RBC) [Ratio] 13.5 % Normal 11.0-15.0 [facility] Comment on above: Performed By: #### M G, CMP #### [facility] [address] [place] [address] Dr. Deepak Greenfield Hematocrit (Bld) [Volume fraction] 38.5 % Critically low 42.0-54.0 [facility] Comment on above: Performed By: #### M G, CMP #### [facility] [address] [place] [address] Dr. Deepak Greenfield Hemoglobin (Bld) [Mass/Vol] 12.6 g/dL Critically low 14.0-18.0 [facility] Comment on above: Performed By: #### M G, CMP #### [facility] [address] [place] [address] Dr. Deepak Greenfield IG # 0.02 10e3/ul Normal 0.00-0.03 [facility] Comment on above: Performed By: #### M G, CMP #### [facility] [address] [place] [address] Dr. Deepak Greenfield IG % 0.2 % Normal 0.0-0.5 [facility] Comment on above: Performed By: #### M G, CMP #### [facility] [address] [place] [address] Dr. Deepak Greenfield LYMPH # 3.1 103/ul Normal 1.2-3.8 [facility] Comment on above: Performed By: #### M G, CMP #### [facility] [address] [place] [address] Dr. Deepak Greenfield Lymphocytes/100 WBC (Bld) 36.2 % Normal 20.5-60.0 [facility] Comment on above: Performed By: #### M G, CMP #### [facility] [address] [place] [address] Dr. Deepak Greenfield MANUAL DIFF REQ NO Normal [facility] Comment on above: Performed By: #### M G, CMP #### [facility] [address] [place] [address] Dr. Deepak Greenfield MCH (RBC) [Entitic mass] 32.1 pg Normal 25.9-34.0 [facility] Comment on above: Performed By: #### M G, CMP #### [facility] [address] [place] [address] Dr. Deepak Greenfield MCHC (RBC) [Mass/Vol] 32.7 g/dL Normal 29.9-35.2 [facility] Comment on above: Performed By: #### M G, CMP #### [facility] [address] [place] [address] Dr. Deepak Greenfield MCV (RBC) [Entitic vol] 98.0 fL Critically high 80.0-94.0 [facility] Comment on above: Performed By: #### M G, CMP #### [facility] [address] [place] [address] Dr. Deepak Greenfield MONO # 0.9 103/ul Critically high 0.3-0.8 [facility] Comment on above: Performed By: #### M G, CMP #### [facility] [address] [place] [address] Dr. Deepak Greenfield Monocytes/100 WBC (Bld) 10.6 % Normal 1.7-12.0 [facility] Comment on above: Performed By: #### M G, CMP #### [facility] [address] [place] [address] Dr. Deepak Greenfield NEUT # 4.3 103/ul Normal 1.4-6.5 [facility] Comment on above: Performed By: #### M G, CMP #### [facility] [address] [place] [address] Dr. Deepak Greenfield Neutrophils/100 WBC (Bld) 50.5 % Normal 43.0-75.0 [facility] Comment on above: Performed By: #### M G, CMP #### [facility] [address] [place] [address] Dr. Deepak Greenfield Platelet mean volume (Bld) [Entitic vol] 9.9 fL Normal 9.5-13.5 [facility] Comment on above: Performed By: #### M G, CMP #### [facility] [address] [place] [address] Dr. Deepak Greenfield PLT 263 103/ul Normal 150-450 [facility] Comment on above: Performed By: #### M G, CMP #### [facility] [address] [place] [address] Dr. Deepak Greenfield RBC 3.93 106/ul Critically low 4.70-6.10 [facility] Comment on above: Performed By: #### M G, CMP #### [facility] [address] [place] [address] Dr. Deepak Greenfield WBC 8.6 103/ul Normal 4.0-11.0 [facility] Comment on above: Performed By: #### Karishma Lacy, CMP #### [facility] [address] [place] [address] Dr. Deepak Greenfield MAGNESIUMon 03-19-2022 Magnesium [Mass/Vol] 1.5 mg/dL Critically low 1.8-2.4 [facility] Comment on above: Performed By: #### Karishma Lacy, CMP #### [facility] [address] [place] [address] Dr. Deepak Greenfield PROF 14(COMP METB)on 022 Albumin [Mass/Vol] 3.4 g/dL Normal 3.4-5.0 [facility] Comment on above: Performed By: #### M G, CMP #### [facility] [address] [place] [address] Dr. Deepak Greenfield Albumin/Globulin [Mass ratio] 0.9 {ratio} Normal [facility] Comment on above: Performed By: #### M G, CMP #### [facility] [address] [place] [address] Dr. Deepak Greenfield ALP [Catalytic activity/Vol] 47 U/L Normal 46-116 [facility] Comment on above: Performed By: #### Karishma House, CMP #### [facility] [address] [place], [place] [id number] Dr. Deepak Greenfield ALT [Catalytic activity/Vol] 48 U/L Normal 16-63 [facility] Comment on above: Performed By: #### M G, CMP #### [facility] [address] [place] [address] Dr. Deepak Greenfield Anion gap [Moles/Vol] 9.5 mmol/L Normal [facility] Comment on above: Performed By: #### M G, CMP #### [facility] [address] [address] [address] Deepak Greenfield AST [Catalytic activity/Vol] 30 U/L Normal 15-37 [facility] Comment on above: Performed By: #### M G, CMP #### [facility] [address] [place] [address] Dr. Deepak Greenfield Bilirubin [Mass/Vol] 0.2 mg/dL Normal 0.2-1.0 [facility] Comment on above: Performed By: #### M G, CMP #### [facility] [address] [place] [address] Dr. Deepak Greenfield Calcium [Mass/Vol] 8.7 mg/dL Normal 8.5-10.1 [facility] Comment on above: Performed By: #### Karishma G, CMP #### [facility] [address] [place] [address] Dr. Deepak Greenfield Chloride [Moles/Vol] 105 mmol/L Normal 98-107 [facility] Comment on above: Performed By: #### M G, CMP #### [facility] [address] [place] [address] Dr. Deepak Greenfield CO2 [Moles/Vol] 32.6 mmol/L Critically high 21.0-32.0 [facility] Comment on above: Performed By: #### M G, CMP #### [facility] [address] [place] [address] Dr. Deepak Greenfield Creatinine [Mass/Vol] 0.70 mg/dL Normal 0.70-1.30 [facility] Comment on above: Performed By: #### M G, CMP #### [facility] [address] [address] [address] Deepak Greenfield EGFR-AF MONTSERRATIAN >60 Normal >=60 [facility] Comment on above: Performed By: #### M G, CMP #### [facility] [address] [place] [address] Dr. Deepak Greenfield EGFR-NON AF MONTSERRATIAN >60 Normal >=60 [facility] Comment on above: Performed By: #### M G, CMP #### [facility] [address] [address] [address] Deepak Greenfield Globulin (S) [Mass/Vol] 3.8 g/dL Normal [facility] Comment on above: Performed By: #### M G, CMP #### [facility] [address] [place] [address] Dr. Deepak Greenfield Glucose [Mass/Vol] 98 mg/dL Normal 74-106 [facility] Comment on above: Performed By: #### Karishma House, CMP #### [facility] [address] [place] [address] Dr. Deepak Greenfield Potassium [Moles/Vol] 4.1 mmol/L Normal 3.5-5.1 [facility] Comment on above: Performed By: #### M G, CMP #### [facility] [address] [place] [address] Dr. Deepak Greenfield Protein [Mass/Vol] 7.2 g/dL Normal 6.4-8.2 [facility] Comment on above: Performed By: #### Karishma G, CMP #### [facility] [address] [place] [address] Dr. Deepak Greenfield Sodium [Moles/Vol] 143 mmol/L Normal 136-145 [facility] Comment on above: Performed By: #### M G, CMP #### [facility] [address] [place] [address] Dr. Deepak Greenfield Urea nitrogen [Mass/Vol] 10.0 mg/dL Normal 7.0-18.0 [facility] Comment on above: Performed By: #### M Lacy, CMP #### [facility] [address] [place] [address] Dr. Deepak Greenfield Urea nitrogen/Creatinine [Mass ratio] 14.3 mg/mg Normal [facility] Comment on above: Performed By: #### M Lacy, CMP #### [facility] [address] [place] [address] Dr. Deepak Greenfield VITAMIN D 25 OHon 03-19-2022 VIT D 25-OH 67.5 ng/mL Normal [facility] Comment on above: Performed By: #### Karishma House, CMP #### [facility] [address] [place] [address] Dr. Deepak Greenfield VIT D RANGES SEE BELOW Normal [facility] Comment on above: Result Comment: <20 ng/mL Vit D deficient 20 - <30 ng/mL Vit D insufficient 30 - 100 ng/mL Vit D sufficient >100 ng/mL Potential Toxicity Performed By: #### Karishma House, CMP #### [facility] [address] [place] [address] Dr. Deepak Greenfield AMMONIAon 03-10-2022 Ammonia (P) [Moles/Vol] 36 umol/L Critically high [facility] Comment on above: Performed By: #### C BC #### [facility] [address] [place] [address] Dr. Deepak Greenfield DEPAKENE/ VALPROIC ACIDon DEPAKENE 93.5 ug/ml Normal 50.0-100.0 [facility] Comment on above: Performed By: #### B MP #### [facility] [address] [place] [address] Dr. Deepak Greenfield BNPon 01-24-2022 Natriuretic peptide B (Bld) [Mass/Vol] 183.0 pg/mL Normal <=450.0 [facility] Comment on above: Performed By: #### M Lacy, CMP #### [facility] [address] [place] [address] Dr. Deepak Greenfield CBC AUTO DIFFon 01-24-2022 BASO # 0.0 103/ul Normal 0.0-0.1 [facility] Comment on above: Performed By: #### C VDTBH #### [facility] [address] [place] [address] Dr. Deepak Greenfield Basophils/100 WBC (Bld) 0.3 % Normal 0.2-2.0 [facility] Comment on above: Performed By: #### C VDTBH #### [facility] [address] [place] [address] Dr. Deepak Greenfield EO # 0.1 103/ul Normal 0.0-0.7 [facility] Comment on above: Performed By: #### C VDTBH #### [facility] [address] [place] [address] Dr. Deepak Greenfield Eosinophils/100 WBC (Bld) 0.4 % Critically low 0.9-7.0 [facility] Comment on above: Performed By: #### C VDTBH #### [facility] [address] [place] [address] Dr. Deepak Greenfield Erythrocyte distribution width (RBC) [Ratio] 13.6 % Normal 11.0-15.0 [facility] Comment on above: Performed By: #### C VDTBH #### [facility] [address] [place] [address] Dr. Deepak Greenfield Hematocrit (Bld) [Volume fraction] 39.3 % Critically low 42.0-54.0 [facility] Comment on above: Performed By: #### C VDTBH #### [facility] [address] [place] [address] Dr. Deepak Greenfield Hemoglobin (Bld) [Mass/Vol] 12.6 g/dL Critically low 14.0-18.0 [facility] Comment on above: Performed By: #### C VDTBH #### [facility] [address] [place] [address] Dr. Deepak Greenfield IG # 0.04 10e3/ul Critically high 0.00-0.03 [facility] Comment on above: Performed By: #### C VDTBH #### [facility] [address] [place] [address] Dr. Deepak Greenfield IG % 0.3 % Normal 0.0-0.5 [facility] Comment on above: Performed By: #### C VDTBH #### [facility] [address] [address] [address] Deepak Greenfield LYMPH # 2.4 103/ul Normal 1.2-3.8 [facility] Comment on above: Performed By: #### C VDTBH #### [facility] [address] [place] [address] Dr. Deepak Greenfield Lymphocytes/100 WBC (Bld) 16.6 % Critically low 20.5-60.0 [facility] Comment on above: Performed By: #### C VDTBH #### [facility] [address] [place] [address] Dr. Deepak Greenfield MANUAL DIFF REQ NO Normal [facility] Comment on above: Performed By: #### C VDTBH #### [facility] [address] [place] [address] Dr. Deepak Greenfield MCH (RBC) [Entitic mass] 32.0 pg Normal 25.9-34.0 [facility] Comment on above: Performed By: #### C VDTBH #### [facility] [address] [place] [address] Dr. Deepak Greenfield MCHC (RBC) [Mass/Vol] 32.1 g/dL Normal 29.9-35.2 [facility] Comment on above: Performed By: #### C VDTBH #### [facility] [address] [place] [address] Dr. Deepak Greenfield MCV (RBC) [Entitic vol] 99.7 fL Critically high 80.0-94.0 [facility] Comment on above: Performed By: #### C VDTBH #### [facility] [address] [place] [address] Dr. Deepak Greenfield MONO # 1.4 103/ul Critically high 0.3-0.8 [facility] Comment on above: Performed By: #### C VDTBH #### [facility] [address] [place] [address] Dr. Deepak Greenfield Monocytes/100 WBC (Bld) 9.8 % Normal 1.7-12.0 [facility] Comment on above: Performed By: #### C VDTBH #### [facility] [address] [address] [address] Deepak Greenfield NEUT # 10.7 103/ul Critically high 1.4-6.5 [facility] Comment on above: Performed By: #### C VDTBH #### [facility] [address] [address] [address] Deepak Greenfield Neutrophils/100 WBC (Bld) 72.6 % Normal 43.0-75.0 [facility] Comment on above: Performed By: #### C VDTBH #### [facility] [address] [address] [address] Deepak Greenfield Platelet mean volume (Bld) [Entitic vol] 10.4 fL Normal 9.5-13.5 [facility] Comment on above: Performed By: #### C VDTBH #### [facility] [address] [place] [address] Dr. Deepak Greenfield PLT 280 103/ul Normal 150-450 [facility] Comment on above: Performed By: #### C VDTBH #### [facility] [address] [place] [address] Dr. Deepak Greenfield RBC 3.94 106/ul Critically low 4.70-6.10 [facility] Comment on above: Performed By: #### C VDTBH #### [facility] [address] [address] [address] Deepak Greenfield WBC 14.7 103/ul Critically high 4.0-11.0 [facility] Comment on above: Performed By: #### C VDTBH #### [facility] [address] [address] [address] Deepak Greenfield CULTURE BLOODon 01-24-2022 Microscopic examination of blood, culture Culture Observations: No growth at 5 days. Normal [facility] Comment on above: Performed By: #### C BC #### [facility] [address] [address] [address] Deepak Greenfield Microscopic examination of blood, culture Culture Observations: No growth at 5 days. Normal [facility] Comment on above: Performed By: #### C BC #### [facility] [address] [place] [address] Dr. Deepak Greenfield Covid-19 PCR ([facility])on SARS-CoV-2 (COVID-19) RNA CINDY+probe Ql (Unsp spec) Not detected Normal NOT DETECTED [facility] Comment on above: Result Comment: When diagnostic [...] for this test is supported by the Family [employer]ist of Health and Human Service's declaration that [...] used). Performed By: #### I NFLUAB #### [facility] [address] [place] [address] Dr. Deepak Greenfield LACTATE/LACTIC ACIDon 2021 Lactate [Moles/Vol] 1.7 mmol/L Normal 0.4-1.9 [facility] Comment on above: Performed By: #### M G, CMP #### [facility] [address] [place] [address] Dr. Deepak Greenfield PROF 14(COMP METB)on 022 Albumin [Mass/Vol] 3.2 g/dL Critically low 3.4-5.0 [facility] Comment on above: Performed By: #### M G, CMP #### [facility] [address] [place] [address] Dr. Deepak Greenfield Albumin/Globulin [Mass ratio] 0.7 {ratio} Normal [facility] Comment on above: Performed By: #### M G, CMP #### [facility] [address] [address] [address] Deepak Greenfield ALP [Catalytic activity/Vol] 49 U/L Normal 46-116 [facility] Comment on above: Performed By: #### M G, CMP #### [facility] [address] [address] [address] Deepak Greenfield ALT [Catalytic activity/Vol] 41 U/L Normal 16-63 [facility] Comment on above: Performed By: #### M G, CMP #### [facility] [address] [address] [address] Deepak Greenfield Anion gap [Moles/Vol] 11.1 mmol/L Normal [facility] Comment on above: Performed By: #### M G, CMP #### [facility] [address] [address] [address] Deepak Greenfield AST [Catalytic activity/Vol] 29 U/L Normal 15-37 [facility] Comment on above: Performed By: #### M G, CMP #### [facility] [address] [address] [address] Deepak Greenfield Bilirubin [Mass/Vol] 0.5 mg/dL Normal 0.2-1.0 [facility] Comment on above: Performed By: #### M G, CMP #### [facility] [address] [address] [address] Deepak Greenfield Calcium [Mass/Vol] 9.1 mg/dL Normal 8.5-10.1 [facility] Comment on above: Performed By: #### M G, CMP #### [facility] [address] [address] [address] Deepak Greenfield Chloride [Moles/Vol] 108 mmol/L Critically high 98-107 [facility] Comment on above: Performed By: #### M G, CMP #### [facility] [address] [address] [address] Deepak Greenfield CO2 [Moles/Vol] 25.7 mmol/L Normal 21.0-32.0 [facility] Comment on above: Performed By: #### M G, CMP #### [facility] [address] [address] [address] Deepak Greenfield Creatinine [Mass/Vol] 0.89 mg/dL Normal 0.70-1.30 [facility] Comment on above: Performed By: #### M G, CMP #### [facility] [address] [address] [address] Deepak Greenfield EGFR-AF MONTSERRATIAN >60 Normal >=60 [facility] Comment on above: Performed By: #### M G, CMP #### [facility] [address] [address] [address] Deepak Greenfield EGFR-NON AF MONTSERRATIAN >60 Normal >=60 [facility] Comment on above: Performed By: #### M G, CMP #### [facility] [address] [address] [address] Deepak Greenfield Globulin (S) [Mass/Vol] 4.5 g/dL Normal [facility] Comment on above: Performed By: #### M G, CMP #### [facility] [address] [address] [address] Deepak Greenfield Glucose [Mass/Vol] 178 mg/dL Critically high 74-106 [facility] Comment on above: Performed By: #### M G, CMP #### [facility] [address] [address] [address] Deepak Greenfield Potassium [Moles/Vol] 3.8 mmol/L Normal 3.5-5.1 [facility] Comment on above: Performed By: #### M G, CMP #### [facility] [address] [address] [address] Deepak Greenfield Protein [Mass/Vol] 7.7 g/dL Normal 6.4-8.2 [facility] Comment on above: Performed By: #### M G, CMP #### [facility] [address] [address] [address] Deepak Greenfield Sodium [Moles/Vol] 141 mmol/L Normal 136-145 [facility] Comment on above: Performed By: #### M G, CMP #### [facility] [address] [address] [address] Deepak Greenfield Urea nitrogen [Mass/Vol] 16.0 mg/dL Normal 7.0-18.0 [facility] Comment on above: Performed By: #### M G, CMP #### [facility] [address] [address] [address] Deepak Greenfield Urea nitrogen/Creatinine [Mass ratio] 18.0 mg/mg Normal [facility] Comment on above: Performed By: #### M G, CMP #### [facility] [address] [address] [address] Deepak Greenfield TROPONIN, HIGH SENSITIVITYon 01-24-2022 HSTROP 6.4 pg/mL Normal 4.0-76.1 [facility] Comment on above: Result Comment: CUT- OFF POINTS HAVE BEEN ESTABLISHED BASED ON THE FOURTH UNIVERSAL DEFINITIONS OF MYOCARDIAL INFARCTION. THE UPPER REFERENCE LIMIT (URL) OF TROPONIN, DEFINED THE 99TH PERCENTILE OF cTnI DISTRIBUTION IN A REFERENCE POPULATION, HAS BEEN CONFIRMED THE DECISION THRESHOLD FOR WI DIAGNOSIS. Performed By: #### M G, CMP #### [facility] [address] [place] [address] Dr. Deepak Greenfield XR CHEST 1 Von [...] ANICETO CROCKER Date: 2022-01-24 15:28 Normal [facility] UA RANDOM W/MICROSCOPICon BACTERIA NONE SEEN Normal NONE SEEN [facility] Comment on above: Performed By: #### C VDTBH #### [facility] [address] [place] [address] Dr. Deepak Greenfield Bilirubin Ql (U) Negative Normal NEGATIVE [facility] Comment on above: Performed By: #### C VDTBH #### [facility] [address] [place] [address] Dr. Deepak Greenfield CAST NONE SEEN Normal NONE SEEN [facility] Comment on above: Performed By: #### C VDTBH #### [facility] [address] [place] [address] Dr. Deepak Greenfield Clarity (U) CLEAR Normal CLEAR [facility] Comment on above: Performed By: #### C VDTBH #### [facility] [address] [place] [address] Dr. Deepak Greenfield Color (U) YELLOW Normal YELLOW [facility] Comment on above: Performed By: #### C VDTBH #### [facility] [address] [place] [address] Dr. Deepak Greenfield Crystals LM Nom (Urine sed) NONE SEEN Normal NONE SEEN [facility] Comment on above: Performed By: #### C VDTBH #### [facility] [address] [place] [address] Dr. Deepak Greenfield Epithelial cells LM Ql (Urine sed) RARE Normal NONE SEEN /RARE [facility] Comment on above: Performed By: #### C VDTBH #### [facility] [address] [place] [address] Dr. Deepak Greenfield Glucose Ql (U) Negative Normal NEGATIVE [facility] Comment on above: Performed By: #### C VDTBH #### [facility] [address] [place] [address] Dr. Deepak Greenfield Hemoglobin Ql (U) Negative Normal NEGATIVE [facility] Comment on above: Performed By: #### C VDTBH #### [facility] [address] [place] [address] Dr. Deepak Greenfield Ketones Ql (U) 15 mg/dl Abnormal NEGATIVE [facility] Comment on above: Performed By: #### C VDTBH #### [facility] [address] [place] [address] Dr. Deepak Greenfield LEUKOCYTES Negative Normal NEGATIVE [facility] Comment on above: Performed By: #### C VDTBH #### [facility] [address] [place] [address] Dr. Deepak Greenfield MUCOUS NONE SEEN Normal NONE SEEN [facility] Comment on above: Performed By: #### C VDTBH #### [facility] [address] [address] [address] Deepak Greenfield Nitrite Ql (U) Negative Normal NEGATIVE [facility] Comment on above: Performed By: #### C VDTBH #### [facility] [address] [place] [address] Dr. Deepak Greenfield pH (U) 6.0 [pH] Normal 5-9 [facility] Comment on above: Performed By: #### C VDTBH #### [facility] [address] [place] [address] Dr. Deepak Greenfield RBC 0-2 Normal 0-2 [facility] Comment on above: Performed By: #### C VDTBH #### [facility] [address] [place] [address] Dr. Deepak Greenfield SPEC GRAVITY 1.020 Normal 1.005-<=1.025 [facility] Comment on above: Performed By: #### C VDTBH #### [facility] [address] [place] [address] Dr. Deepak Greenfield UA PROTEIN Negative Normal NEGATIVE/ TRACE [facility] Comment on above: Performed By: #### C VDTBH #### [facility] [address] [place] [address] Dr. Deepak Greenfield Urobilinogen Qn (U) 0.2 {Ottoniel'U}/dL Normal 0.2 - 1. 0 [facility] Comment on above: Performed By: #### C VDTBH #### [facility] [address] [place] [address] Dr. Deepak Greenfield WBC NONE SEEN Normal NONE SEEN [facility] Comment on above: Performed By: #### C VDTBH #### [facility] [address] [place] [address] Dr. Deepak Greenfield ALBUMINon 01-12-2022 Albumin [Mass/Vol] 3.4 g/dL Normal 3.4-5.0 [facility] Comment on above: Performed By: #### C VDTBH #### [facility] [address] [place] [address] Dr. Deepak Greenfield ALKALINE PHOSPHAon ALP [Catalytic activity/Vol] 46 U/L Normal 46-116 [facility] Comment on above: Performed By: #### C VDTBH #### [facility] [address] [place] [address] Dr. Deepak Greenfield AMMONIAon 01-12-2022 Ammonia (P) [Moles/Vol] 93 umol/L Critically high [facility] Comment on above: Performed By: #### I NFLUAB #### [facility] [address] [place] [address] Dr. Deepak Greenfield BILIRUBIN CONJUGATED (DIRECT )on 01-12-2022 BILI, CONJUGATED 0.1 mg/dL Normal 0.0-0.2 [facility] Comment on above: Performed By: #### C VDTBH #### [facility] [address] [place] [address] Dr. Deepak Greenfield BILIRUBIN TOTALon 01-12-2022 Bilirubin [Mass/Vol] 0.4 mg/dL Normal 0.2-1.0 [facility] Comment on above: Performed By: #### C VDTBH #### [facility] [address] [place] [address] Dr. Deepak Greenfield CBC AUTO DIFFon 01-12-2022 BASO # 0.0 103/ul Normal 0.0-0.1 [facility] Comment on above: Performed By: #### M G, CMP #### [facility] [address] [place] [address] Dr. Deepak Greenfield Basophils/100 WBC (Bld) 0.3 % Normal 0.2-2.0 [facility] Comment on above: Performed By: #### M Lacy, CMP #### [facility] [address] [place] [address] Dr. Deepak Greenfield EO # 0.1 103/ul Normal 0.0-0.7 [facility] Comment on above: Performed By: #### M Lacy, CMP #### [facility] [address] [place] [address] Dr. Deepak Greenfield Eosinophils/100 WBC (Bld) 1.3 % Normal 0.9-7.0 [facility] Comment on above: Performed By: #### M G, CMP #### [facility] [address] [place] [address] Dr. Deepak Greenfield Erythrocyte distribution width (RBC) [Ratio] 14.2 % Normal 11.0-15.0 [facility] Comment on above: Performed By: #### M G, CMP #### [facility] [address] [place] [address] Dr. Deepak Greenfield Hematocrit (Bld) [Volume fraction] 40.4 % Critically low 42.0-54.0 [facility] Comment on above: Performed By: #### M G, CMP #### [facility] [address] [place] [address] Dr. Deepak Greenfield Hemoglobin (Bld) [Mass/Vol] 13.1 g/dL Critically low 14.0-18.0 [facility] Comment on above: Performed By: #### M G, CMP #### [facility] [address] [place] [address] Dr. Deepak Greenfield IG # 0.01 10e3/ul Normal 0.00-0.03 [facility] Comment on above: Performed By: #### M G, CMP #### [facility] [address] [place] [address] Dr. Deepak Greenfield IG % 0.1 % Normal 0.0-0.5 [facility] Comment on above: Performed By: #### M G, CMP #### [facility] [address] [place] [address] Dr. Deepak Greenfield LYMPH # 3.3 103/ul Normal 1.2-3.8 [facility] Comment on above: Performed By: #### M G, CMP #### [facility] [address] [place] [address] Dr. Deepak Greenfield Lymphocytes/100 WBC (Bld) 42.3 % Normal 20.5-60.0 [facility] Comment on above: Performed By: #### M G, CMP #### [facility] [address] [place] [address] Dr. Deepak Greenfield MANUAL DIFF REQ NO Normal [facility] Comment on above: Performed By: #### M G, CMP #### [facility] [address] [place] [address] Dr. Deepak Greenfield MCH (RBC) [Entitic mass] 32.4 pg Normal 25.9-34.0 [facility] Comment on above: Performed By: #### M G, CMP #### [facility] [address] [place] [address] Dr. Deepak Greenfield MCHC (RBC) [Mass/Vol] 32.4 g/dL Normal 29.9-35.2 [facility] Comment on above: Performed By: #### M G, CMP #### [facility] [address] [place] [address] Dr. Deepak Greenfield MCV (RBC) [Entitic vol] 100.0 fL Critically high 80.0-94.0 [facility] Comment on above: Performed By: #### M G, CMP #### [facility] [address] [place] [address] Dr. Deepak Greenfield MONO # 0.6 103/ul Normal 0.3-0.8 [facility] Comment on above: Performed By: #### M G, CMP #### [facility] [address] [place] [address] Dr. Deepak Greenfield Monocytes/100 WBC (Bld) 7.6 % Normal 1.7-12.0 [facility] Comment on above: Performed By: #### M G, CMP #### [facility] [address] [place] [address] Dr. Deepak Greenfield NEUT # 3.8 103/ul Normal 1.4-6.5 [facility] Comment on above: Performed By: #### M G, CMP #### [facility] [address] [place] [address] Dr. Deepak Greenfield Neutrophils/100 WBC (Bld) 48.4 % Normal 43.0-75.0 [facility] Comment on above: Performed By: #### M G, CMP #### [facility] [address] [address] [address] Deepak Greenfield Platelet mean volume (Bld) [Entitic vol] 9.6 fL Normal 9.5-13.5 [facility] Comment on above: Performed By: #### M G, CMP #### [facility] [address] [address] [address] Deepak Greenfield PLT 315 103/ul Normal 150-450 [facility] Comment on above: Performed By: #### M G, CMP #### [facility] [address] [address] [address] Deepak Greenfield RBC 4.04 106/ul Critically low 4.70-6.10 [facility] Comment on above: Performed By: #### M G, CMP #### [facility] [address] [place] [address] Dr. Deepak Greenfield WBC 7.9 103/ul Normal 4.0-11.0 [facility] Comment on above: Performed By: #### M G, CMP #### [facility] [address] [place] [address] Dr. Deepak Greenfield DEPAKENE/VALPROICon 01-13-20 DEPAKENE 89.7 ug/ml Normal 50.0-100.0 [facility] Comment on above: Performed By: #### I NFLUAB #### [facility] [address] [place] [address] Dr. Deepak Greenfield PROF CHEM 8 (BAS METB)on Anion gap [Moles/Vol] 12.9 mmol/L Normal [facility] Comment on above: Performed By: #### I NFLUAB #### [facility] [address] [place] [address] Dr. Deepak Greenfield Calcium [Mass/Vol] 8.8 mg/dL Normal 8.5-10.1 [facility] Comment on above: Performed By: #### I NFLUAB #### [facility] [address] [place] [address] Dr. Deepak Greenfield Chloride [Moles/Vol] 103 mmol/L Normal 98-107 [facility] Comment on above: Performed By: #### I NFLUAB #### [facility] [address] [address] [address] Deepak Greenfield CO2 [Moles/Vol] 28.1 mmol/L Normal 21.0-32.0 [facility] Comment on above: Performed By: #### I NFLUAB #### [facility] [address] [address] [address] Deepak Greenfield Creatinine [Mass/Vol] 0.58 mg/dL Critically low 0.70-1.30 [facility] Comment on above: Performed By: #### I NFLUAB #### [facility] [address] [place] [address] Dr. Deepak Greenfield EGFR-AF MONTSERRATIAN >60 Normal >=60 [facility] Comment on above: Performed By: #### I NFLUAB #### [facility] [address] [address] [address] Deepak Greenfield EGFR-NON AF MONTSERRATIAN >60 Normal >=60 [facility] Comment on above: Performed By: #### I NFLUAB #### [facility] [address] [address] [address] Deepak Greenfield Glucose [Mass/Vol] 117 mg/dL Critically high 74-106 [facility] Comment on above: Performed By: #### I NFLUAB #### [facility] [address] [address] [address] Deepak Greenfield Potassium [Moles/Vol] 4.0 mmol/L Normal 3.5-5.1 [facility] Comment on above: Performed By: #### I NFLUAB #### [facility] [address] [address] [address] Deepak Greenfield Sodium [Moles/Vol] 140 mmol/L Normal 136-145 [facility] Comment on above: Performed By: #### I NFLUAB #### [facility] [address] [address] [address] Deepak Greenfield Urea nitrogen [Mass/Vol] 7.0 mg/dL Normal 7.0-18.0 [facility] Comment on above: Performed By: #### I NFLUAB #### [facility] [address] [place] [address] Dr. Deepak Greenfield Urea nitrogen/Creatinine [Mass ratio] 12.1 mg/mg Normal [facility] Comment on above: Performed By: #### I NFLUAB #### [facility] [address] [place] [address] Dr. Deepak Greenfield SGOTon 01-12-2022 AST [Catalytic activity/Vol] 31 U/L Normal 15-37 [facility] Comment on above: Performed By: #### C VDTBH #### [facility] [address] [place] [address] Dr. Deepak Greenfield SGPTon 01-12-2022 ALT [Catalytic activity/Vol] 48 U/L Normal 16-63 [facility] Comment on above: Performed By: #### C VDTBH #### [facility] [address] [place] [address] Dr. Deepak Greenfield T PROTEIN SERUMon 01-12-2022 Protein [Mass/Vol] 7.3 g/dL Normal 6.4-8.2 [facility] Comment on above: Performed By: #### B MP #### [facility] [address] [place] [address] Dr. Deepak Greenfield XR CHEST 2 Von [...] by: ANICETO CROCKER Date: 2022-01-06 16:15 Normal [facility] Progress Noteson 12-16-2021 Printing Agent Authentication Interface Message Text ----- Thursday, December 16, 2021 at 12:03:50 PM ----- ----- Provider: Shanel Powell Hygienist -- Clinic: [place] ----- [facility], Pt is ready for tx. Pt presented for dental evaluation for future OR. Caregiver in the room. Patient is non-verbal. Severe intellectual disability, seizure disorder Caregiver stated patient is not pain and no complaining. Radiograph taken today: no possible due to patient behavior Case requested for OR. Guardian mother Katia Lopez. [phone]. [facility] [id number] [id number] ( [facility] pt's appt) AVS printed and handed flyer for step by step instruction of OR process to Caregiver exam By: Elliott Ham [facility]. OR ----- Signed on Thursday, December 16, 2021 at 12:18:18 PM ----- ----- Provider: Julia Adams DDS -- Clinic: [place] ----- Normal [facility] XR DEXA BONE DENSITYon 11-20 XR [...] by: MARGARITO DAVIES Date: 2021-11-20 11:42 Normal [facility] US SCROTUMon 11-14-2021 US SCROTUM EXAMINATION: US [...] KRISTIAN BILLINGS Date: 2021-11-14 07:10 Normal [facility] AMMONIAon 10-31-2021 Ammonia (P) [Moles/Vol] 88 umol/L Critically high [facility] Comment on above: Performed By: #### M G, CMP #### [facility] [address] [place] [address] Dr. Deepak Greenfield AMMONIAon 10-30-2021 Ammonia (P) [Moles/Vol] 103 umol/L Critically high [facility] Comment on above: Result Comment: SPEC IMEN SLIGHTLY HEMOLYZED MAY AFFECT AMM RESULT Performed By: #### I NFLUAB #### [facility] [address] [address] [address] Deepak Greenfield WOUND CULTUREon 10-23-2021 Bacteria identified Aer cx Nom (Unsp spec) Final report Normal [facility] Comment on above: Performed By: #### C XWND #### [facility] [address] [place] [address] Dr. Deepak Greenfield Result 1 Comment Normal [facility] Comment on above: Result Comment: No g rowth in 36 - 48 hours. Performed By: #### C XWND #### [facility] [address] [place] [address] Dr. Deepak Greenfield WOUND CULTUREon 10-02-2021 Bacteria identified Aer cx Nom (Unsp spec) Final report Normal [facility] Comment on above: Performed By: #### A MM #### [facility] [address] [place] [address] Dr. Deepak Greenfield Result 1 Mixed skin omid Normal [facility] Comment on above: Performed By: #### A MM #### [facility] [address] [place] [address] Dr. Deepak Greenfield AMYLASEon 09-22-2021 Amylase [Catalytic activity/Vol] 24 U/L Critically low 25-115 [facility] Comment on above: Performed By: #### C BC #### [facility] [address] [place] [address] Dr. Deepak Greenfield CBC AUTO DIFFon 09-22-2021 BASO # 0.0 103/ul Normal 0.0-0.1 [facility] Comment on above: Performed By: #### C VDTBH #### [facility] [address] [place] [address] Dr. Deepak Greenfield Basophils/100 WBC (Bld) 0.5 % Normal 0.2-2.0 [facility] Comment on above: Performed By: #### C VDTBH #### [facility] [address] [place] [address] Dr. Deepak Greenfield EO # 0.1 103/ul Normal 0.0-0.7 [facility] Comment on above: Performed By: #### C VDTBH #### [facility] [address] [place] [address] Dr. Deepak Greenfield Eosinophils/100 WBC (Bld) 1.3 % Normal 0.9-7.0 [facility] Comment on above: Performed By: #### C VDTBH #### [facility] [address] [place] [address] Dr. Deepak Greenfield Erythrocyte distribution width (RBC) [Ratio] 13.9 % Normal 11.0-15.0 [facility] Comment on above: Performed By: #### C VDTBH #### [facility] [address] [place] [address] Dr. Deepak Greenfield Hematocrit (Bld) [Volume fraction] 40.0 % Critically low 42.0-54.0 [facility] Comment on above: Performed By: #### C VDTBH #### [facility] [address] [place] [address] Dr. Deepak Greenfield Hemoglobin (Bld) [Mass/Vol] 13.0 g/dL Critically low 14.0-18.0 [facility] Comment on above: Performed By: #### C VDTBH #### [facility] [address] [place] [address] Dr. Deepak Greenfield IG # 0.01 10e3/ul Normal 0.00-0.03 [facility] Comment on above: Performed By: #### C VDTBH #### [facility] [address] [place] [address] Dr. Deepak Greenfield IG % 0.2 % Normal 0.0-0.5 [facility] Comment on above: Performed By: #### C VDTBH #### [facility] [address] [place] [address] Dr. Deepak Greenfield LYMPH # 3.0 103/ul Normal 1.2-3.8 [facility] Comment on above: Performed By: #### C VDTBH #### [facility] [address] [place] [address] Dr. Deepak Greenfield Lymphocytes/100 WBC (Bld) 47.9 % Normal 20.5-60.0 [facility] Comment on above: Performed By: #### C VDTBH #### [facility] [address] [place] [address] Dr. Deepak Greenfield MANUAL DIFF REQ NO Normal [facility] Comment on above: Performed By: #### C VDTBH #### [facility] [address] [place] [address] Dr. Deepak Greenfield MCH (RBC) [Entitic mass] 32.9 pg Normal 25.9-34.0 [facility] Comment on above: Performed By: #### C VDTBH #### [facility] [address] [place] [address] Dr. Deepak Greenfield MCHC (RBC) [Mass/Vol] 32.5 g/dL Normal 29.9-35.2 [facility] Comment on above: Performed By: #### C VDTBH #### [facility] [address] [place] [address] Dr. Deepak Greenfield MCV (RBC) [Entitic vol] 101.3 fL Critically high 80.0-94.0 [facility] Comment on above: Performed By: #### C VDTBH #### [facility] [address] [place] [address] Dr. Deepak Greenfield MONO # 0.7 103/ul Normal 0.3-0.8 [facility] Comment on above: Performed By: #### C VDTBH #### [facility] [address] [place] [address] Dr. Deepak Greenfield Monocytes/100 WBC (Bld) 10.3 % Normal 1.7-12.0 [facility] Comment on above: Performed By: #### C VDTBH #### [facility] [address] [place] [address] Dr. Deepak Greenfield NEUT # 2.5 103/ul Normal 1.4-6.5 [facility] Comment on above: Performed By: #### C VDTBH #### [facility] [address] [place] [address] Dr. Deepak Greenfield Neutrophils/100 WBC (Bld) 39.8 % Critically low 43.0-75.0 [facility] Comment on above: Performed By: #### C VDTBH #### [facility] [address] [place] [address] Dr. Deepak Greenfield Platelet mean volume (Bld) [Entitic vol] 10.1 fL Normal 9.5-13.5 [facility] Comment on above: Performed By: #### C VDTBH #### [facility] [address] [place] [address] Dr. Deepak Greenfield PLT 311 103/ul Normal 150-450 [facility] Comment on above: Performed By: #### C VDTBH #### [facility] [address], [place] [address] Dr. Deepak Greenfield RBC 3.95 106/ul Critically low 4.70-6.10 [facility] Comment on above: Performed By: #### C VDTBH #### [facility] [address] [place], [place] [address] Dr. Deepak Greenfield WBC 6.3 103/ul Normal 4.0-11.0 [facility] Comment on above: Performed By: #### C VDTBH #### [facility] [address] [place], [place] [address] ABD/PELV W CONon [...] JAMIE ALICIA Date: 2021-09-22 02:34 Normal [facility] CT HEAD WO CONon 09-22-2021 CT [...] by: BRITTON FONTENOT Date: 2021-09-22 01:13 Normal [facility] LIPASEon 09-22-2021 Lipase [Catalytic activity/Vol] 28.0 U/L Critically low 73.0-393.0 [facility] Comment on above: Performed By: #### C BC #### [facility] [address] [place] [address] Dr. Deepak Greenfield PROF 14(COMP METB)on 022 Albumin [Mass/Vol] 3.3 g/dL Critically low 3.4-5.0 [facility] Comment on above: Performed By: #### B MP #### [facility] [address] [place] [address] Dr. Deepak Greenfield Albumin/Globulin [Mass ratio] 0.9 {ratio} Normal [facility] Comment on above: Performed By: #### B MP #### [facility] [address] [place] [address] Dr. Deepak Greenfield ALP [Catalytic activity/Vol] 38 U/L Critically low 46-116 [facility] Comment on above: Performed By: #### B MP #### [facility] [address] [address] [address] Deepak Greenfield ALT [Catalytic activity/Vol] 91 U/L Critically high 16-63 [facility] Comment on above: Performed By: #### B MP #### [facility] [address] [address] [address] Deepak Greenfield Anion gap [Moles/Vol] 10.2 mmol/L Normal [facility] Comment on above: Performed By: #### B MP #### [facility] [address] [address] [address] Deepak Greenfield AST [Catalytic activity/Vol] 50 U/L Critically high 15-37 [facility] Comment on above: Performed By: #### B MP #### [facility] [address] [address] [address] Deepak Greenfield Bilirubin [Mass/Vol] 0.3 mg/dL Normal 0.2-1.0 [facility] Comment on above: Performed By: #### B MP #### [facility] [address] [address] [address] Deepak Greenfield Calcium [Mass/Vol] 8.6 mg/dL Normal 8.5-10.1 [facility] Comment on above: Performed By: #### B MP #### [facility] [address] [address] [address] Deepak Greenfield Chloride [Moles/Vol] 106 mmol/L Normal 98-107 [facility] Comment on above: Performed By: #### B MP #### [facility] [address] [address] [address] Deepak Greenfield CO2 [Moles/Vol] 29.9 mmol/L Normal 21.0-32.0 [facility] Comment on above: Performed By: #### B MP #### [facility] [address] [address] [address] Deepak Greenfield Creatinine [Mass/Vol] 0.65 mg/dL Critically low 0.70-1.30 [facility] Comment on above: Performed By: #### B MP #### [facility] [address] [address] [address] Deepak Greenfield EGFR-AF MONTSERRATIAN >60 Normal >=60 [facility] Comment on above: Performed By: #### B MP #### [facility] [address] [address] [address] Deepak Greenfield EGFR-NON AF MONTSERRATIAN >60 Normal >=60 [facility] Comment on above: Performed By: #### B MP #### [facility] [address] [address] [address] Deepak Greenfield Globulin (S) [Mass/Vol] 3.7 g/dL Normal [facility] Comment on above: Performed By: #### B MP #### [facility] [address] [place] [address] Dr. Deepak Greenfield Glucose [Mass/Vol] 105 mg/dL Normal 74-106 [facility] Comment on above: Performed By: #### B MP #### [facility] [address] [address] [address] Deepak Greenfield Potassium [Moles/Vol] 4.1 mmol/L Normal 3.5-5.1 [facility] Comment on above: Performed By: #### B MP #### [facility] [address] [place] [address] Dr. Deepak Greenfield Protein [Mass/Vol] 7.0 g/dL Normal 6.4-8.2 [facility] Comment on above: Performed By: #### B MP #### [facility] [address] [address] [address] Deepak Greenfield Sodium [Moles/Vol] 142 mmol/L Normal 136-145 [facility] Comment on above: Performed By: #### B MP #### [facility] [address] [address] [address] Deepak Greenfield Urea nitrogen [Mass/Vol] 13.0 mg/dL Normal 7.0-18.0 [facility] Comment on above: Performed By: #### B MP #### [facility] [address] [place] [address] Dr. Deepak Greenfield Urea nitrogen/Creatinine [Mass ratio] 20.0 mg/mg Normal [facility] Comment on above: Performed By: #### B #### [facility] [address] [place] [address] Dr. Deepak Greenfield Vital Signs Date Time Vital Sign Value Performing Clinician Facility 12-16-2022 10:18-0400 Blood Pressure Location Arline Lue [facility] 12-16-2022 10:18-0400 Body temperature 98.06 [degF] Arline Lue [facility] 12-16-2022 10:18-0400 Diastolic blood pressure 78 mm[Hg] Arline Lue [facility] 12-16-2022 10:18-0400 Heart rate 84 /min Arline Lue [facility] 12-16-2022 10:18-0400 Systolic blood pressure 128 mm[Hg] Arline Lue [facility] 12-23-2021 11:30-0400 Body height 157.48 cm Antionette Leonel Other [employer] [facility] [employer] Other 12-23-2021 11:30-0400 Body mass index (BMI) [Ratio] 25.79 kg/m2 Antionette Leonel Other [employer] [facility] [employer] Other 12-23-2021 11:30-0400 Body temperature 98.5 [degF] Antionette Leonel Other [employer] Other 12-23-2021 11:30-0400 Body weight 63.96 kg Antionette Leonel Other [employer] Other 12-23-2021 11:30-0400 Diastolic blood pressure 70 mm[Hg] Antionette Leonel Other [employer] Other 12-23-2021 11:30-0400 Respiratory rate 20 /min Antionette Leonel Other [employer] Other 12-23-2021 11:30-0400 SaO2% (BldA) [Mass fraction] 99 % Antionette Leonel Other [employer] Other 12-23-2021 11:30-0400 Systolic blood pressure 120 mm[Hg] Antionette Leonel Other [employer] Other 10-22-2021 10:29-0400 Blood Pressure Location Arline Lue [facility] [employer] 10-22-2021 10:29-0400 Diastolic blood pressure 92 mm[Hg] [facility]ue [facility] [facility] [employer] 10-22-2021 10:29-0400 Heart rate 100 /min Arline Lue [facility] [employer] 10-22-2021 10:29-0400 Respiratory rate 16 /min Arline Lue [facility] [employer] 10-22-2021 10:29-0400 Systolic blood pressure 137 mm[Hg] Arline Lue [facility] [employer] Encounters Encounter Date Encounter Type Care Provider Facility Start: 01-05-2023 End: 01-05-2023 ambulatory Antionette Leonel Other [facility] Start: 01-05-2023 Office outpatient visit 25 minutes Antionette Leonel [facility] Start: 12-16-2022 End: 12-17-2022 ambulatory Arline SchwarzYulissa Abner Facility:[facility] Start: 12-16-2022 End: 12-16-2022 Patient encounter procedure Arline SchwarzYulissa Messinakaren [facility] Start: 08-04-2022 End: 08-04-[address] FAM VENTURA Facility: Start: 07-29-2022 End: 08-02-2022 Evaluation and management of inpatient DR FAM VENTURA Facility:[facility] Start: 07-26-2022 End: 07-27-[address] FAM VENTURA Facility: Start: 07-23-2022 End: 07-24-2022 ambulatory FAM [place]ENTURA [place] [place]: 07-23-2022 End: 07-23-2022 Patient encounter procedure FAM VENTURA [facility] Start: 06-23-2022 End: 06-23-2022 ambulatory Antionette Leonel Other [facility] Other Start: 06-23-2022 Office outpatient visit 25 minutes Antionette Leonel [facility] Start: 06-03-2022 End: 06-04-[address] FAM VENTURA Facility:[facility] Start: 05-08-2022 Letter encounter Abundio Mares DDS Work Phone: [place] Start: 04-22-2022 End: 04-23-[address] FAM VENTURA Facility:[facility] Start: 03-19-2022 End: 03-20-[address] FAM VENTURA Facility:[facility] Start: 03-10-2022 End: 03-11-[address] FAM VENTURA Facility:[facility] Start: 01-24-2022 End: 01-24-[address] DIAMOND BURGER . Facility:[facility] Start: 01-18-2022 End: 01-18-2022 ambulatory ANJELICA DOLL . Facility:[facility] Start: 01-13-[address] RODRIGUEZ VANG [facility] ty:[facility] Start: 01-12-2022 End: 01-13-[address] RODRIGUEZ VANG Facility:[facility] Start: 01-06-2022 End: 01-07-[address] FAM VENTURA Facility:[facility] Start: 12-23-2021 End: 12-23-2021 ambulatory Antionette Leonel Other [facility] Other Start: 12-23-2021 Office outpatient visit 25 minutes Antionette Leonel [facility] Start: 12-16-2021 End: 12-17-2021 ambulatory UNKNOWN PROVIDER Facility:[facility] Start: 12-16-2021 End: 12-17-2021 Patient encounter procedure Mora Ulloabarry [facility] Work Phone: [facility] Start: 12-10-2021 End: 12-10-2021 Patient encounter procedure Arline Levine [facility] Start: 11-20-2021 End: 11-21-[address] FAM VENTURA Facility:[facility] Start: 11-13-2021 End: 11-14-2021 ambulatory ARLINE LEVINE . Facility:[facility] Start: 10-31-2021 End: 11-01-[address] FAM VENTURA Facility:[facility] Start: 10-22-2021 End: 10-22-2021 Patient encounter procedure Arline Levine [facility] Start: 10-21-2021 End: 10-21-[address] FAM VENTURA Facility:[facility] Start: 09-29-2021 End: 09-29-[address] FAM VENTURA Facility:[facility] Start: 09-22-2021 End: 09-22-2021 ambulatory ABBI SANCHEZ Facility:[facility] Plan of Treatment Date Care Activity Detail Author Start: 02-01-2030 Shingles (RZV) Vacci ne (1 of 2) Shingles (RZV) Vaccine (1 of 2) [facility] Start: 01-17-2022 Influenza vaccination Influenza Vacc ine (#1) [facility] Start: 02-01-2015 [facility] Start: 05-20-2012 Annual wellness visit Annual W ellness Visit (G0438) [facility] Start: 02-01-1998 Hepatitis C screening Hepatitis C An tibody [place] Start: 02-01-1998 Tetanus + diphtheria + acellular pertussis vaccine (product) Tdap Booster [facility] Start: 02-01-1995 HIV screening HIV Test [facility] Start: 1980 COVID-19 Vaccine (#1) COVID-19 Vacci ne (#1) [place] Immunizations Immunization Date Immunization Notes Care Provider Fa [facility] 03-04-2020 pneumococcal conjuga te vaccine, 13 valent Mora Urmetz RDH Work Phone: [place] 01-26-2018 influenza, injectabl e, quadrivalent, preservative free Mora Urmetz RDH Work Phone: [place] 01-26-2018 influenza virus vaccine, unspecified formulation Mora Urmetz RDH Work Phone: [facility] 02-10-2017 influenza virus vaccine, unspecified formulation Arline Lue [facility] 02-10-2017 influenza, injectabl e, quadrivalent, contains preservative Mora Urmetz RDH Work Phone: [place] 02-07-2015 influenza virus vaccine, unspecified formulation Arline Lue [facility] 02-07-2015 influenza, injectabl e, quadrivalent, preservative free Mora Urmetz RD Work Phone: [place] 10-23-2014 pneumococcal polysaccharide vaccine, [address] Work Phone: [place] 12-31-2010 influenza virus vaccine, unspecified formulation Arline Levine [facility] 12-31-2010 influenza, seasonal, injectable Mora Urmetz RD Work Phone: [place] 03-06-2009 novel [id number], preservative-free, injectable Mora Urmetz RDH Work Phone: [place] 02-09-2008 influenza virus vaccine, whole virus Mora Urmetz RD Work Phone: [place] 02-09-2008 influenza, whole Arline Lue [facility] NEGATED: Highlighted row has not occurred!12-10-2021 SARS-CoV-2 mRNA (tozinameran 5y-11y) vaccine Arline Lukaren [facility] Payers Date Payer Category Payer Medicaid [id number] 2011 Medicare MEDICARE MEDICAR E PART A & B [id number] 2011-Present [address] [place] [address] Medicare [id number] 1980 Unknown [id number] 2.16.840.1.933022.3.579.2.732 1980 Unknown [id number] 2.16.840.1.277785.3.579.2.593 1980 Unknown [id number] 2.16.840.1.326459.3.579.2.593 1980 Unknown [id number] 2.16.840.1.855945.3.579.2.593 1980 Unknown [id number] 2.16.840.1.925689.3.579.2.593 1980 Unknown [id number] 2.16.840.1.245086.3.579.2.727 1980 Unknown [id number] 2.16.840.1.934837.3.579.2.727 1959 Medicaid [id number] 1959 Medicare [id number] 2.16.840.1.336062.19 1953 Unknown [id number] 2.16.840.1.004179.3.579.2.593 1953 Unknown [id number] 2.16.840.1.869444.3.579.2.593 1953 Unknown [id number] 2.16.840.1.988523.3.579.2.593 1953 Unknown [id number] 2.16.840.1.395087.3.579.2.593 1953 Unknown [id number] 2.16.840.1.352689.3.579.2.593 1953 Unknown [id number] 2.16.840.1.579688.3.579.2.593 1953 Unknown [id number] 2.16.840.1.879499.3.579.2.593 1953 Unknown [id number] 2.16.840.1.490843.3.579.2.593 1953 Unknown [id number] 2.16.840.1.970544.3.579.2.593 1953 Unknown [id number] 2.16.840.1.044298.3.579.2.593 1953 Unknown [id number] 2.16.840.1.279138.3.579.2.593 1953 Unknown [id number] 2.16.840.1.456415.3.579.2.593 1953 Unknown [id number] 2.16.840.1.472476.3.579.2.593 1953 Unknown [id number] 2.16.840.1.162179.3.579.2.593 Social History Date Type Detail Facility Tobacco smoking status No Smoking Status Entered [facility] Sex Assigned At Male [facility] Tobacco smoking status [facility] Tobacco smoking consumption unknown [facility] Start: 1980 Sex Assigned At Not [facility] Tobacco smoking status No Smoking Status Entered [facility] Start: 12-16-2022 Tobacco smoking status Never smoked tobacco (finding) [facility] Tobacco smoking status Never [facility] Functional Status Date Assessment Result Facility 12-16-2022 Functional Status N/A [facility] 12-10-2021 Functional Status N/A [facility] 10-22-2021 Functional Status N/A [facility] Clinical Notes 10-22-2021 to 01-05-2023 Note Date & Type Note Facility 01-05-2023 Evaluation note Encounter Date Diagnosis Assessment Notes Dec, COPD (chronic obstructive pulmonary disease) (ICD-10 - J44.9) [facility] Other 08-30-2023 Hospital Discharge instructions Patient Education [...] provider. Document Revised: 08/14/2021 Document Reviewed: 08/14/2021 [employer] Patient Education 2022 [employer]. Follow Up Care 12/10/2021 11:51:23 With:Abner BYRNE, JUNIOR Hawk, URO Address: When: Unknown Comments:LENORA [facility] 03-07-2023 Evaluation note* Encounter Date Diagnosis Assessment Notes Treatment Notes Treatment Clinical Notes Jun, COPD (chronic obstructive pulmonary disease) (ICD-10 - J44.9) Continue with respiratory regemin, including VEST therapy, as you currently are doing. Call office with respiratory questions or concerns. [facility] Other 09-06-2022 Evaluation note* Encounter Date Diagnosis Assessment Notes Treatment Notes Treatment Clinical Notes Dec, COPD (chronic obstructive pulmonary disease) (ICD-10 - J44.9) Continue with VEST therapy twice a day. Ok to increase to TID if needed. [facility] Other 08-30-2022 NotePt presented today for OR evaluation. Limited eval was completed. Pt's case is not urgent updated contact information and placed Pt on OR list. Step by step process for OR flyer was given to caregiver. Please wait for phone call from OR coordinator.[employer]08-30-2022 Instructions* Patient Instructions * Mora Powell RDH - 12/16/2021 11:57 AM EDT Pt presented today for OR evaluation. Limited eval was completed. Pt's case is not urgent updated contact information and placed Pt on OR list. Step by step process for OR flyer was given to caregiver. Please wait for phone call from OR coordinator. documented in this [id number] History of Present illness Narrative* Mora Powell RDH - 12/16/2021 11:42 AM EDT ----- Wednesday, December 16, 2021 at 12:03:50 PM ----- ----- Provider: [id number] Callahanenist -- Clinic: [facility] ----- RM, Pt is ready for tx. Pt presented for dental evaluation for future OR. Caregiver in the room. Patient is non-verbal. Severe intellectual disability, seizure disorder Caregiver stated patient is not pain and no complaining. Radiograph taken today: no possible due to patient behavior Case requested for OR. Guardian mother Katia Lopez. [phone]. [facility] [phone] [id number] [id number] ( [facility] pt's appt) AVS printed and handed flyer for step by step instruction of OR process to Caregiver exam By: Elliott Ham [facility] [place]. OR ----- Signed on Thursday, December 16, 2021 at 12:18:18 PM ----- ----- Provider: Julia Adams DDS -- Clinic: [facility] ----- documented in this [id number] Hospital Discharge instructions Patient Education 12/10/2021 11:47:35 [...] (electrical nerve stimulation). For women, using a internist medical doctor md to prevent urine leaks. This is a [...] right after experiencing incontinence. General instructions Take qovf-ipt-zwplvup and prescription medicines only as told by [...] 05/13/2005 Document Revised: 04/15/2018 Document Reviewed: 07/15/2017 [employer] Patient Education 2020 [employer] Follow Up Care 10/22/2021 11:38:20 With:Abner BYRNE, JUNIOR Hawk, URO Address: When:1 year Comments:W/ renal [facility] Hospital Discharge instructions Patient Education 10/22/2021 [...] (electrical nerve stimulation). For women, using a internist medical doctor md to prevent urine leaks. This is a [...] right after experiencing incontinence. General instructions Take rjfe-bbc-dpiewuz and prescription medicines only as told by [...] 05/13/2005 Document Revised: 04/15/2018 Document Reviewed: 07/15/2017 [employer] Patient Education 2020 [employer]. 10/22/2021 11:42:30 Renal Mass Renal Mass A [...] provider gives to you. In general: Take dulv-nsn-yaysxfj and prescription medicines only as told by [...] 10/31/2014 Document Revised: 05/12/2018 Document Reviewed: 05/12/2018 [employer] Patient Education 2020 [employer]. Follow Up Care 09/22/2021 14:10:46 With:Abner BYRNE, Arline Little, JUNIOR, URO Address: When:1 month [facility] evaluation + Plan note Future Appointments Appointment Date:11/19/2021 10:00:00 AM Scheduled Provider:Arline Levine MD Location:[facility] Appointment Type:URO Office Visit [facility] evaluation + Plan note Future Appointments Appointment Date:12/16/2022 10:15:00 AM Scheduled Provider:Abner BYRNE, Arline Little Location:[facility] Appointment Type:URO Office Visit [facility] History general Narrative - Reported* Type Description Date Medical History Mental retardation Medical History Seizure Disorder Medical History Tristen Syndrome Medical History ADD Medical History Hypothyroidism Medical History Spastic Quadraparesis Medical History Osteoporosis Medical History Tristen-Beuren syndrome Medical History Seizure disorder Medical History Seizure disorder Medical History COPD Surgical History VNS REPLACED 2021 [facility] Hospital course Narrative No data available for this section [facility] Hospital Discharge instructions No data available for this section [facility] No data available for this section [facility] Summary Purpose Family History No Family History Records FoundNo Family History Records FoundNo Family History Records Found Advance Directives No Advanced Directives Records FoundNo Advanced Directives Records FoundNo Advanced Directives Records Found Additional Source Comments Care Team (unrecognized sect ion and content) [employer] Crewmember Relationship Specialty Start Date [place] [address] Resident Dentistry 02/23/20 [employer] Crewmember Relationship Specialty Start Date End Date Abundio Mares DDS [address] [place] [address] Resident Dentistry 02/23/20 (unrecognized sect ion and content) No Status Records FoundNo Status Records FoundNo Status Records Found INFORMATION SOURCE (unrecogn ized section and content) DATE CREATED AUTHOR 12/18/2021 [employer] DATE CREATED AUTHOR AUTHOR'S ORGANIZ ATION 08/05/2022 [facility] DATE CREATED AUTHOR AUTHOR'S ORGANIZ ATION 01/26/2023 [facility] REASON FOR VISIT (unrecogniz ed section and [...] BE BASED ON THE PRIMARY CLINICAL RECORDS. [employer] [facility]. provides no warranty or guarantee of the accuracy or completeness of information in this document.
[2023-07-06 07:13] LABS: Ammonia 31 umol/L (11-32)
[2023-07-06 07:15] LABS: Basophils Percent Auto 0.7 % (0.2-2.0); Eosinophils Absolute Auto 0.1 10^3/uL (0.0-0.7); Eosinophils Percent Auto 1.9 % (0.9-7.0); Hemoglobin 12.2 g/dL (14.0-18.0); Immature Granulocytes Abs Auto 0.01 10^3/uL (0.00-0.03); Immature Granulocytes Pct Auto 0.2 % (0.0-0.5); Lymphocytes Absolute Auto 2.6 10^3/uL (1.2-3.8); Lymphocytes Percent Auto 43.1 % (20.5-60.0); Mean Corpuscular HGB Conc 32.1 g/dL (29.9-35.2); Mean Corpuscular Hemoglobin 31.9 pg (25.9-34.0); Mean Corpuscular Volume 99.2 fL (80.0-94.0); Mean Platelet Volume 10.1 fL (9.5-13.5); Monocytes Absolute Auto 0.6 10^3/uL (0.3-0.8); Monocytes Percent Auto 9.6 % (1.7-12.0); Neutrophils Absolute Auto 2.7 10^3/uL (1.4-6.5); Neutrophils Percent Auto 44.5 % (43.0-75.0); Platelet Count 335 10^3/uL (150-450); Red Blood Count 3.83 10^6/uL (4.70-6.10); Red Cell Distribution Width 13.4 % (11.0-15.0); White Blood Count 5.9 10^3/uL (4.0-11.0)
[2023-07-06 07:43] LABS: Alanine Aminotransferase 48 U/L (16-63); Albumin Globulin Ratio 0.9; Albumin Level 3.5 g/dL (3.4-5.0); Alkaline Phosphatase 66 U/L (46-116); Anion Gap 13.8; Aspartate Amino Transferase 36 U/L (15-37); BUN Creatinine Ratio 12.1; Bilirubin Total 0.4 mg/dL (0.2-1.0); Carbon Dioxide 30.1 mmol/L (21.0-32.0); Chloride 104 mmol/L (98-107); Chol HDL Ratio 5.1; Cholesterol 154 mg/dL (<=200); Estimated GFR (African America >60 (>=60); Estimated GFR (Non-African Ame >60 (>=60); Globulin 3.8 g/dL; Glucose 98 mg/dL (74-106); HDL Cholesterol 30 mg/dL (40-60); Potassium 3.9 mmol/L (3.5-5.1); Sodium 144 mmol/L (136-145); Thyroid Stimulating Hormone 0.859 uIU/mL (0.358-3.740); Total Protein 7.3 g/dL (6.4-8.2); Triglycerides 102 mg/dL (<=150); VLDL CHOLESTEROL 20.4 mg/dL
[2023-07-06 08:58] LABS: Valproic Acid 5.5 ug/mL (50.0-100.0)
[2023-07-06 10:04] LABS: Free T4 0.86 ng/dL (0.76-1.46)
== END 2023-07-06 06:38 | disposition home or self-care (01) ==
LOC: LAB 06:39
PROVIDERS: PCP Family Medicine; Visit Provider Family Medicine
DX: G40.909 Epilepsy, unspecified, not intractable, without status epilepticus (principal); E78.5 Hyperlipidemia, unspecified; Z79.899 Other long term (current) drug therapy; E03.9 Hypothyroidism, unspecified
CPT/HCPCS: 36415; 80053; 80061; 80164; 82140; 82306; 84439; 84443; 85025

== ENCOUNTER 2023-08-13 07:38 | Outpatient (OUT) | payer MEDICARE, MEDICAID, SELFPAY ==
--- OUTSIDE RECORDS SUMMARY | 2023-08-13 07:42 | XMS_ITS | CCD ---
Author Organization [facility] Care Team Providers Care Business And Financial Counsel Name Role Phone FAM VENTURA Primary Care Physician [phone] PROVIDER, UNKNOWN Attending Unavailable PROVIDER, UNKNOWN Admitting Unavailable Abundio Mares DDS Unavailable Antionette Castaneda Unavailable LORENZO, DR FAM Duran Attending Unavailable VENTURA, DR FAM Duran Admitting Unavailable VENTURA, DR FAM Duran Primary Care Unavailable VENTURA, DR FAM Duran Consulting Unavailable LUE ., CRICKET Schwarz Attending Unavailable LUE .CRICKET Admitting Unavailable VENTURA, DR FAM Duran Consulting [...] PEREZ Consulting Unavailable RILEY, SOPHIA Consulting Unavailable JBARAGURJIT Consulting Unavailable VENTURA, DR FAM Duran Primary Care Unavailable NADERER, DR CHELE Duran Consulting Unavailable NADERELeonor, DR [...] ABBI Consulting Unavailable DANIEL, ABBI Attending Unavailable DANIEL, ABBI Admitting Unavailable VENTURA, DR FAM Duran Primary Care Unavailable BRITTON FONTENOT Consulting Unavailable RAVINJAMIE SCHWARTZ Consulting Unavailable VENTURA, DR FAM Duran Primary Care Unavailable CRISTI .PARISH Attending Unavailable CRISTI ., PARISH Admitting Unavailable ALICE .IDRIS Consulting Unavailsusan jones NEFCYGUANAKITO Consulting Unavailable SHARMILA .ANJELICA Consulting Unavailable SHARMILA .ANJELICA Attending Unavailable VENTURA, DR FAM Duran Primary Care Unavailable SHARMILA .ANJELICA Admitting Unavailable HAY ., DR FIELDS Consulting Unavailable HAY ., DR FIELDS Attending Unavailable VENTURA, DR FAM Duran Primary Care Unavailable HAY ., DR FIELDS Admitting Unavailable KlipperAniceto Consulting Unavailable Cricket Levine Attending Unavailable VENTURA, FAM Referring Unavailable VENTURA, FAM Attending Unavailable VENTURA, FAM Admitting Unavailable Allergies Allergy Classification Reported Allergen(s) Allergy Type Date of Onset Reaction(s) Facility (8 sources) Amoxicillin / Clavulanate; Translations: [amoxicillin-clav ulanate] Drug Allergy Unknown [facility] (9 sources) Phenytoin; Translations: [phenytoin] Drug Allergy 01-06-20 23 Unknown, Unknown Reaction [facility] (12 sources) Promethazine; Translations: [promethazine] Drug Allergy 05-12-19 17 Unknown, Unknown Reaction [facility] (3 sources) Phenytoin; Translations: [PHENYTOIN SODIUM EXTENDED] Drug Allergy 05-12-19 17 [facility] (3 sources) AMOXICILLIN-POT CLAVULANATE; Translations: [AMOXICILLIN-POT CLAVULANATE] Propensity to adverse reactions to drug (disorder) 05-12-19 17 [facility] (1 source) 4-Aminobenzoic Acid Drug Allergy [facility] (1 source) Amoxicillin / Clavulanate Drug Allergy 05-29-19 14 [facility] (1 source) Levamisole Drug Allergy 05-29-19 14 [facility] (1 source) metroNIDAZOLE Drug Allergy [facility] (1 source) Phenytoin Drug Allergy 05-29-19 14 [facility] (1 source) remdesivir (investigational use) Drug allergy (disorder) [facility] (1 source) Amoxicillin Drug Allergy 01-06-20 23 Unknown Reaction [facility] (1 source) Clavulanate Drug Allergy 01-06-20 23 Unknown Reaction [facility] Medications Current Medications Medication Drug Class(es) Dates Sig (Normalized) Sig (Original) Acetaminophen (6 sources) Start: 12-16-2022 acetaminophen Refills(s) 0 Start Date: 12/16/22 Status: Ordered Start: 03-28-2020 Acetaminophen Active 650 MG MD EVERY 4-6 HOURS March 28, 2020 1:00am Start: 03-28-2020 End: 07-06-2023 take 650 mg by mouth every four to six hours Acetaminophen Discontinued 650 MG PO EVERY 4-6 HOURS March 28, 2020 1:00am July 06, 2023 9:30am take 1 tablet by rebecca th every six hours as needed Acetaminophen 325 MG 1 tablet as needed Orally every 6 hrs Active acetylcysteine 100 mg/ml inhalation solution (1 source) Antidote, Mucolytic, Antidote for Acetaminophen Overdose Start: 03-28-2020 take 1 mL by inhalation every four hours Acetylcysteine Active 2 ML INHALATION Q4H March 28, 2020 1:00am albuterol 0.83 mg/ml inhalation solution (7 sources) beta2-Adrenergic Agonist Start: 06-28-2023 take 2.5 mg by inhalation four times daily Albuterol Sulfate Active 2.5 MG INHALATION Four times daily June 28, 2023 1:17pm Start: 03-28-2020 End: 06-28-2023 take 2.5 mg by inhalation every six hours Albuterol Sulfate Discontinued 2.5 MG INHALATION Q6H March 28, 2020 1:00am June 28, 2023 1:21pm Start: 03-28-2020 End: 06-28-2023 take 2.5 mg by inhalation every two hours Albuterol Sulfate Discontinued 2.5 MG INHALATION Q2H March 28, 2020 1:00am June 28, 2023 1:17pm Start: 07-04-2015 albuterol 0.08 3% Inh Cassie [...] / ipratropium bromide 0.167 mg/ml inhalation solution (4 sources) Anticholinergic, beta2-Adrenergic Agonist Start: 03-28-2020 take 1 mL by inhalation three times daily Ipratropium-Albuterol Active 3 ML INHALATION Three times daily March 28, 2020 1:00am Start: 01-01-2015 take 3 mL by inhalat ion three times daily Ipratropium-Albuterol 0.5-2.5 (3) MG/3ML 3 ml Inhalation Three times a day Dec, Active Albuterol Sulfate (2.5 MG/ 3 ML) 2.5 MG/3ML 0.083% Nebulization Solution (3 sources) Start: 05-14-2015 Albuterol Sulf ate (2.5 MG/ 3 ML) 2.5 MG/3ML 0.083% Nebulization Solution 3ml Inhalation qid as needed Apr, Active alendronic acid 70 mg oral tablet (10 sources) Bisphosphonate Start: 07-04-2015 take 70 mg by mouth every week Alendronate Active 70 MG PO every week March 28, 2020 1:00am Start: 07-04-2015 alendronate Ta b 70 mg, [...] Start Date: 10/22/21 Status: Ordered Ascorbic Acid (8 sources) Vitamin C Start: 10-22-2021 Vitamin C Toby y, Refills(s) 0 Start Date: 10/22/21 Status: Ordered Start: 03-28-2020 take 1 tablet by rebecca th twice daily Ascorbic Acid (Vitamin C) (Vitamin C) 500 mg Tablet Active 500 MG PO Twice daily March 28, 2020 1:00am take 1 tablet by rebecca th every twenty-four hours Vitamin C 500 MG 1 tablet Orally Once a day Active atorvastatin 10 mg oral tablet (10 sources) HMG-CoA Reductase Inhibitor Start: 07-04-2015 take 10 mg by mouth once daily at bedtime Atorvastatin Active 10 MG PO Daily at bedtime March 28, 2020 1:00am azelastine hydrochloride 0.137 mg/actuat metered dose nasal spray (6 sources) Histamine-1 Receptor Antagonist Start: 06-28-2023 take 1 puff(s) nasal route twice daily Azelastine Active 1 PUFF INTRANASAL Twice daily June 28, 2023 12:00am Free[employer] puff in each nostril Nasally Twice a day; Note: Source Status: Taking; Provider: Leonel Adan ( ) Start: 07-04-2015 azelastine alpa al 137 mcg/inh spray 2 spray(s), Nasal, As Directed Allergy symptoms, Refill(s) 0, Allergy symptoms Start Date: 07/04/15 Status: Ordered take 1 puff(s) nasal route twice daily Azelastine HCl 137 MCG/SPRAY 1 puff in each nostril Nasally Twice a day Active azelastine nasal 137 mcg/inh spray (2 sources) Start: 07-04-2015 azelastine alpa al 137 mcg/inh spray 2 spray(s), Nasal, As Directed Allergy symptoms, Refill(s) 0, Allergy symptoms Start Date: 07/04/15 Status: Ordered Enemeez Plus (4 sources) Standardized Chemical Allergen Start: 07-05-2015 Enemeez Plus 1 coleen, Rectal, Daily as needed for constipation, Refill(s) 0 Start Date: 07/05/15 Status: Ordered benzonatate 100 mg oral capsule (4 sources) Non-narcotic Antitussive Start: 03-28-2020 take 100 mg by mouth every eight hours Benzonatate Active 100 MG PO Q8H March 28, 2020 1:00am take 1 capsule by mo uth every eight hours Benzonatate 100 MG 1 capsule as needed Orally Three times a day Active budesonide 0.25 mg/ml inhalation suspension (5 sources) Corticosteroid Start: 06-28-2023 take 0.5 mg by inhalation twice daily Budesonide (Pulmicort) 0.5 mg/2 mL suspension for nebulization Active 0.5 MG INHALATION Twice daily June 28, 2023 12:00am Start: 12-16-2022 take 0.5 mg by inhal ation twice daily budesonide 0.5 mg/2 mL Inh Susp 0.5 mg = 2 mL, NEB, BID, # 120 mL, Refills(s) 0 Start Date: 12/16/22 Status: Ordered take 2 mL by inhalat ion twice daily Pulmicort 0.5 MG/2ML 2 ml Inhalation Twice a day Active calcium carbonate 1250 mg / cholecalciferol 200 unt oral tablet (2 sources) Vitamin D Start: 03-28-2020 take 1 tablet by mouth twice daily Calcium Carbonate-Vitamin D3 (Oyster Shell Calcium-Vit D3) 500 mg(1,250mg) -200 unit Tablet Active 1 TAB PO Twice daily March 28, 2020 1:00am take 1 tablet by rebecca every twenty-four hours Oyster Shell Calcium + D 500-200 MG-UNIT 1 tablet with food Orally Once a day Active clindamycin 300 mg oral capsule (2 sources) Lincosamide Antibacterial Start: 02-29-2020 take 1 capsule by mouth three times daily clindamycin (CLEOCIN) 300 MG capsule TAKE 1 CAPSULE BY MOUTH 3 TIMES DAILY FOR 7 DAYS. 21 Capsule 0 02/29/2020 Active cloBAZam 10 mg oral tablet (10 sources) Benzodiazepine Start: 07-04-2015 take 10 mg by mouth twice daily Clobazam Active 10 MG PO Twice daily March 28, 2020 1:00am clonazePAM 0.25 mg disintegrating oral tablet (4 sources) Benzodiazepine Start: 03-28-2020 Clonazepam Active 0.25 MG TRANSLINGU Twice daily March 28, 2020 1:00am Cough and Chest Congestion (4 sources) Start: 10-22-2021 Cough and Chest Congestion Refill(s) 0 Start Date: 10/22/21 Status: Ordered 4 ml diazePAM 5 mg/ml rectal gel (9 sources) Benzodiazepine Start: 10-22-2021 take 1 mg rectal route once Diastat AcuDial adult mg, Rectal, Once, Refills(s) 0 Start Date: 10/22/21 Status: Ordered Start: 03-28-2020 apply 10 mg rectal r oute every two hours Diazepam Active 5 MG PO Q2H March 28, 2020 1:00am 10MG RECTAL GEL, PATIENT TAKES IT MD - wont let me save without route. Start: 07-05-2015 diazepam 10 mg , Rectal, PRN Seizure, Refills(s) 0 Start Date: 07/05/15 Status: Ordered docusate sodium 100 mg oral capsule (8 sources) Start: 10-22-2021 take 1 capsule by mo [facility] twice daily as needed for constipation docusate sodium 100 mg Cap 100 mg = 1 cap(s), Oral, BID, PRN for constipation, # 20 cap(s), Refills(s) 0 Start Date: 10/22/21 Status: Ordered Start: 03-28-2020 take 200 mg by mouth once daily in the morning Docusate Sodium Active 200 MG PO Every morning March 28, 2020 1:00am take 1 capsule by [facility] every twenty-four hours Docusate Sodium 100 MG [...] Status: Ordered felbamate 400 mg oral tablet (10 sources) Anti-epileptic Agent Start: 02-23-2020 take 400 mg by mouth three times daily Felbamate Active 400 MG PO Three times daily March 28, 2020 1:00am fenofibrate 145 mg oral tablet (4 sources) Peroxisome Proliferator Receptor alpha Agonist Start: 10-22-2021 take 1 mg by mouth once daily fenofibrate 145 mg Tab mg tab(s), Oral, Daily, Refills(s) 0 Start Date: 10/22/21 Status: Ordered fluticasone furoate 0.05 MG/ACTUAT Dry Powder Inhaler (10 sources) Corticosteroid Start: 10-22-2021 fluticasone furoate 50 mcg inhalation powder Inhalation, q24hr, Refills(s) 0 Start Date: 10/22/21 Status: Ordered Start: 03-28-2020 Fluticasone Pr opionate Active 2 SPRAY INTRANASAL Daily March 28, 2020 1:00am Start: 02-26-2020 fluticasone (F LONASE) 50 mcg/act nasal inhaler take 1 spray(s) nasa l route once daily Fluticasone Propionate 50 MCG/ACT 1 spray in each nostril Nasally Once a day Active furosemide 20 mg oral tablet (10 sources) Loop Diuretic Start: 02-23-2020 take 20 mg by mouth once daily Furosemide Active 20 MG PO Daily March 28, 2020 1:00am glycopyrrolate 1 mg oral tablet (8 sources) Start: 10-22-2021 take 1 tablet by mouth three times daily glycopyrrolate 1 mg oral tablet mg tab(s), Oral, TID, Refills(s) 0 Start Date: 10/22/21 Status: Ordered Start: 03-28-2020 take 1 mg by mouth t wice daily Glycopyrrolate Active 1 MG PO Twice daily March 28, 2020 1:00am guaiFENesin 400 mg oral tabl et (2 sources) Start: 12-16-2022 guaifenesin 40 0 mg oral tablet Refills(s) 0 Start Date: 12/16/22 Status: Ordered Start: 03-28-2020 take 1 tablet by rebecca th twice daily, then take 1 tablet by mouth every twelve hours Guaifenesin (Mucinex) 600 mg Tablet Extended Release 12hr Active 600 MG PO Twice daily March 28, 2020 1:00am hydrocortisone 25 mg/ml rectal cream (1 source) Corticosteroid Start: 12-16-2022 hydrocortisone 2.5% Rectal Crm w/Appl 1 coleen, Rectal, BID, 30 gram, Refill(s) 0 Start Date: 12/16/22 Status: Ordered Ipratropium (5 sources) Anticholinergic Start: 12-16-2022 ipratropium mc g, QID Start Date: 12/16/22 Status: Ordered Start: 10-22-2021 take 1 ug by inhalat ion four times daily ipratropium 0.02% inhalation solution mcg mL, NEB, QID, Refills(s) 0 Start Date: 10/22/21 Status: Ordered Start: 10-22-2021 take 1 ug by inhalat ion four times daily ipratropium 0.02% inhalation solution mcg mL, NEB, QID, Refills(s) 0 Start Date: 10/22/21 Status: Ordered ketoconazole 20 mg/ml topical cream (5 sources) Azole Antifungal Start: 07-05-2015 Ketoconazole Active 1 APPLIC TOPICAL Twice daily March 28, 2020 1:00am lactulose 667 mg/ml oral solution (13 sources) Osmotic Laxative Start: 10-22-2021 Enulose 10 g/ 15 mL oral and rectal liquid gm mL, Refills(s) 0 Start Date: 10/22/21 Status: Ordered Start: 03-28-2020 take 1 mL by mouth f our times daily Lactulose Active 60 ML PO Four times daily March 28, 2020 1:00am Start: 02-19-2020 lactulose 10 g /15 mL oral solution Start: 07-04-2015 lactulose 40 g marlena, Oral, QID, Refills(s) 0, Other (see comment) Start Date: 07/04/15 Status: Ordered take 15 mL by mouth once daily L actulose 10 GM/15ML 15 ml Orally Once a day Active levETIRAcetam 750 mg oral tablet (10 sources) Start: 03-28-2020 take 1500 mg by mouth twice daily Levetiracetam Active 1500 MG PO Twice daily March 28, 2020 1:00am Start: 07-04-2015 take 750 mg by mouth twice daily Keppra 750 mg, Oral, BID, Refills(s) 0, Seizure Start Date: 07/04/15 Status: Ordered take 2 tablets by mo uth in the morning, then take 3 tablets by mouth at bedtime levETIRAcetam 500 mg 2 tablet in am and 3 tabs at hs Orally As Directed Active levothyroxine sodium 0.1 mg oral tablet (14 sources) l-Thyroxine Start: 06-28-2023 take 150 ug by mouth once daily Levothyroxine Active 150 MCG PO Daily June 28, 2023 1:10pm Start: 02-23-2020 End: 06-28-2023 take 100 ug by mouth once daily at bedtime Levothyroxine Discontinued 100 MCG PO Daily at bedtime March 28, 2020 1:00am June 28, 2023 1:21pm Start: 02-23-2020 End: 06-28-2023 take 50 ug by mouth once daily at bedtime Levothyroxine Discontinued 50 MCG PO Daily at bedtime March 28, 2020 1:00am June 28, 2023 1:11pm Start: 07-04-2015 levothyroxine 150 microgram, Oral, Daily, Refills(s) 0, Thyroid Start Date: 07/04/15 Status: Ordered take 1 tablet by rebecca every twenty-four hours Levothyroxine Sodium 150 MCG 1 tablet Orally Once a day Active linaclotide 0.145 mg oral capsule (11 sources) Guanylate Cyclase-C Agonist Start: 12-16-2022 Linzess 145 mcg oral capsule Start Date: 12/16/22 Status: Ordered Start: 02-23-2020 take 1 capsule by mo ut once daily in the morning Linaclotide (Linzess) 145 mcg capsule Active 145 MCG PO Every morning March 28, 2020 1:00am Start: 07-05-2015 Carson 145 mi crogram, Oral, Daily, PRN Constipation, Refills(s) 0 Start Date: 07/05/15 Status: Ordered Linzess 145 145m cg 1 PO Every AM Active loratadine 10 mg oral tablet (1 source) Start: 12-16-2022 loratadine 10 mg Tab Start Date: 12/16/22 Status: Ordered 24 hr loratadine 10 mg / pseudoephedrine sulfate 240 mg extended release oral tablet (5 sources) alpha-Adrenergi c Agonist Start: 03-28-2020 End: 06-28-2023 take 1 tablet by mouth once daily, then take 1 tablet by mouth every twenty-four hours Loratadine-Pseudo ephedrine (Allergy Relief D-24hr) 10-240 mg tablet extended release 24 hr Active 1 TAB PO Daily June 28, 2023 12:00am magnesium oxide 400 mg oral tablet (5 sources) Start: 12-16-2022 magnesium oxid e 400 mg Tab Start Date: 12/16/22 Status: Ordered Start: 03-28-2020 take 1 mg by mouth once daily magnesium oxide 400 mg Tab mg tab(s), Oral, Daily, Refills(s) 0 Start Date: 10/22/21 Status: Ordered melatonin 5 mg oral tablet (5 sources) Start: 03-28-2020 take 1 tablet by mouth once daily at bedtime as needed melatonin 5 mg oral tablet 5 mg = 1 tab(s), Oral, Once a day (at bedtime), PRN for insomnia, # 60 tab(s), Refills(s) 0 Start Date: 10/22/21 Status: Ordered metoprolol tartrate 50 mg oral tablet (4 sources) beta-Adrenergic Rachelle Start: 06-28-2023 take 1 tablet by mouth twice daily Metoprolol Tartrate Active 1 TAB PO Twice daily June 28, 2023 12:00am FreeTextSi tablet Orally Twice a day; Note: Source Status: Taking; Provider: Leonel Adan ( ) take 1 tablet by rebecca th every twelve hours Metoprolol Tartrate 50 MG 1 tablet Orall y Twice a day Active Miconazole (3 sources) Azole Antifungal Start: 10-22-2021 Umesh Antifung al Topical, BID, Refill(s) 0 Start Date: 10/22/21 Status: Ordered montelukast 10 mg oral tablet (8 sources) Leukotriene Receptor Antagonist Start: 03-28-2020 take 1 mg by mouth once daily Singulair 10 mg Tab mg tab(s), Oral, Daily, Refills(s) 0 Start Date: 10/22/21 Status: Ordered Multivitamin preparation (4 sources) Start: 03-28-2020 take 1 tablet by mouth once daily Multivitamin Active 1 TAB PO Daily March 28, 2020 1:00am Multivitamin Ora lly Active multivitamin with iron (4 sources) Start: 10-22-2021 multivitamin w ith iron mL, Refill(s) 0 Start Date: 10/22/21 Status: Ordered mupirocin 0.02 mg/mg topical ointment (3 sources) RNA Synthetase Inhibitor Antibacterial Start: 10-22-2021 mupirocin Top 2% Oin t Topical, TID, Refill(s) 0 Start Date: 10/22/21 Status: Ordered Normal saline (7 sources) Start: 07-05-2015 Ideal Saline Alpa al Gel Nasal, TID, Refill(s) 0, Dry nasal passages Start Date: 07/05/15 Status: Ordered Ideal Saline Nasal Gel Nasally Active omeprazole 40 mg delayed release oral capsule (10 sources) Proton Pump Inhibitor Start: 02-23-2020 take 40 mg by mouth once daily Omeprazole Active 40 MG PO Daily March 28, 2020 1:00am OXcarbazepine 600 mg oral tablet (18 sources) Anti-epileptic Agent Start: 06-28-2023 take 300 mg by mouth twice daily Oxcarbazepine Active 300 MG PO Twice daily June 28, 2023 1:14pm Start: 03-28-2020 End: 06-28-2023 take 300 mg by mouth twice daily Oxcarbazepine Discontinued 300 MG PO Twice daily March 28, 2020 1:00am June 28, 2023 1:22pm Start: 02-23-2020 End: 06-28-2023 take 600 mg by mouth twice daily Oxcarbazepine Discontinued 600 MG PO Twice daily March 28, 2020 1:00am June 28, 2023 1:21pm Start: 07-05-2015 take 300 mg by mouth once daily Trileptal 300 mg, Oral, Daily, Refills(s) 0, Seizure Start Date: 07/05/15 Status: Ordered Oyster Shell Calcium + D 500-200 MG-UNIT (2 sources) take 1 tablet by mouth once daily at mealtime Oyster Shell Calcium + D 500-200 MG-UNIT 1 tablet with food Orally Once a day Active Oyster Shell Calcium with Vitamin D (4 sources) Start: Oyster Shell Calcium with Vitamin D Refill(s) 0, 1 tab bid, Prophylaxis Start Date: 07/05/15 Status: Ordered [id number] oral powder for reconstitution (1 source) Start: [id number] oral powder for reconstitution Start Date: 12/16/22 Status: Ordered polyethylene glycol 3350 71849 mg powder for oral solution (4 sources) Osmotic Laxative Start: polyethylene glycol 3350 17 gram packet 17 gram, Oral, Daily, Refills(s) 0, Constipation Start Date: 07/05/15 Status: Ordered Polyethylene Glycol 3350 (Clearlax) 17 gram/dose Powder (1 source) Start: Polyethylene Glycol 3350 (Clearlax) 17 gram/dose Powder Active 17 GM PO Daily March 28, 2020 1:00am predniSONE 20 mg oral tablet (1 source) Start: take 20 mg by mouth once daily Prednisone Active 20 MG PO Daily March 28, 2020 1:00am rifAXIMin 550 mg oral tablet (1 source) Rifamycin Antibacterial Start: take 1 tablet by mouth twice daily Xifaxan 550 mg oral tablet 550 mg = 1 tab(s), Oral, BID, # 60 tab(s) Start Date: 12/16/22 Status: Ordered Senna Leaves (4 sources) Start: Senna 8.6 mg oral tablet 17.2 mg, 2 tab(s), Oral, Once a day (at bedtime) for constipation, 100 tab(s), Refill(s) 0 Start Date: 10/22/21 Status: Ordered sennosides, chcf 8.6 mg oral tablet (1 source) Start: take 2 tablets by mouth twice daily Sennosides (Senna) 8.6 mg Tablet Active 17.2 MG PO Twice daily March 28, 2020 1:00am sertraline 25 mg oral tablet (4 sources) Serotonin Reuptake Inhibitor Start: take 25 mg by mouth once daily Sertraline Active 25 MG PO Daily June 28, 2023 12:00am take 1 tablet by rebecca th every twenty-four hours Sertraline HCl 25 MG 1 tablet Orally Onc e a day Active Sodium Chloride-Aloe Vera (Ideal Saline) gel (1 source) Start: 06-28-2023 Sodium Chlorid e-Aloe Vera (Ideal Saline) gel Active 1 APPLIC TOPICAL Daily at bedtime June 28, 2023 12:00am tamsulosin hydrochloride 0.4 mg oral capsule (8 sources) alpha-Adrenergi c Rachelle Start: 07-04-2015 take 0.4 mg by mouth once daily Tamsulosin Active 0.4 MG PO Daily March 28, 2020 1:00am divalproex sodium 250 mg delayed release oral tablet (15 sources) Mood Stabilizer, Anti-epileptic Agent Start: 06-28-2023 take 250 mg by mouth twice daily Divalproex Active 250 MG PO Twice daily June 28, 2023 1:07pm Start: 06-28-2023 End: 06-28-2023 take 250 mg by mouth twice daily Divalproex Discontinued 250 MG PO Twice daily June 28, 2023 1:06pm June 28, 2023 1:22pm Start: 03-28-2020 End: 06-28-2023 take 125 mg by mouth twice daily Divalproex Discontinued 125 MG PO Twice daily March 28, 2020 1:00am June 28, 2023 1:21pm Start: 03-28-2020 End: 06-28-2023 take 250 mg by mouth three times daily Divalproex Discontinued 250 MG PO Three times daily March 28, 2020 1:00am June 28, 2023 1:21pm Start: 02-23-2020 divalproex (DE PAKOTE) 250 MG enteric coated tablet Start: 02-23-2020 take 1 mg by mouth t hree times daily divalproex sodium 125 mg Cap-EC mg cap(s), Oral, TID, Refills(s) 0 Start Date: 10/22/21 Status: Ordered Vitamin D3 5000 intl units o ral capsule (1 source) Start: 08-30-2023 Vitamin D3 500 0 intl units oral capsule Start Date: 12/16/22 Status: Ordered Completed/Discontinued Medications Medication Drug Class(es) Dates Sig (Normalized) Sig (Original) levoFLOXacin 750 mg oral tablet (1 source) Quinolone Antimicrobial Start: 03-28-2020 End: 06-28-2023 take 750 mg by mouth once daily Levofloxacin Discontinued 750 MG PO Daily March 28, 2020 1:00am June 28, 2023 1:09pm Sodium Chloride-Aloe Vera (Saline Nasal (Aloe Vera)) Gel (1 source) Start: 03-28-2020 End: 06-28-2023 Sodium Chloride-Aloe Vera (Saline Nasal (Aloe Vera)) Gel Discontinued 2 APPLIC INTRANASAL Three times daily March 28, 2020 1:00am June 28, 2023 1:23pm Problems Active Problems Problem Classification Problem Date Documented Da te Episodic/Chronic Attention-deficit, conduct, and disruptive behavior disorders (5 sources) Attention deficit hyperactivity disorder, predominantly inattentive type; Translations: [Other specified behavioral and emotional disorders with onset usually occurring in childhood and adolescence] 12-16-2010 Chronic Attention-deficit, conduct, and disruptive behavior disorders (1 source) Attention-deficit hyperactivity disorder, unspecified type; Translations: [ADHD UNSPECIFIED TYPE] Onset: 08-05-2022 Chronic Chronic obstructive pulmonary disease and bronchiectasis (12 sources) Chronic obstructive lung disease; Translations: [Chronic obstructive pulmonary disease, unspecified] Onset: 12-23-2021 Resolved: 12-23-2021 Chronic Developmental disorders (9 sources) Severe intellectual disability; Translations: [Mental handicap] Onset: 02-22-2020 06-30-2013 Chronic Disorders of lipid metabolism (1 source) Hyperlipidemia, unspecified; Translations: [HYPERLIPIDEMIA UNSPECIFIED] Onset: 08-05-2022 Chronic E Codes: Adverse effects of medical drugs (1 source) Adverse effect of other antiepileptic and sedative-hypnotic drugs, initial encounter; Translations: [ADVRS EFF OTH ANTIEPI SED RX INIT] Onset: 08-05-2022 Episodic Epilepsy; convulsions (6 sources) Epilepsy, unspecified, not intractable, without status epilepticus; Translations: [Seizure disorder] Onset: 04-22-2022 Chronic Epilepsy; convulsions (8 sources) Seizure disorder; Translations: [Unspecified convulsions] Onset: 01-18-2022 06-30-2013 Episodic Esophageal disorders (2 sources) Gastro-esophageal reflux disease without esophagitis; Translations: [Gastroesophageal reflux disease] Onset: 08-05-2022 07-06-2023 Chronic Genitourinary congenital anomalies (7 sources) Retractile [...] 06-30-2013 Chronic Other aftercare (5 sources) Other computer terminal operator (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) drug therapy; Translations: [OTH PRISON CURRENT DRUG THERAPY] Onset: 06-03-2022 Episodic Other [...] [SHORTNESS OF BREATH] Onset: 01-27-2022 Episodic Other lower respiratory disease (1 source) Wheezing; Translations: [Wheezing] 03-31-2023 Episodic Other nutritional; endocrine; and metabolic disorders (5 sources) Disorder of urea cycle metabolism, unspecified; 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] Onset: 10-31-2021 Chronic Other upper respiratory disease (1 source) Seasonal allergy; Translations: [Other seasonal allergic rhinitis] 07-06-2023 Chronic Other upper respiratory infections (4 sources) Chronic sinusitis; Translations: [Chronic sinusitis, unspecified] 07-06-2023 Chronic Paralysis (3 sources) Tetraplegia; Translations: [Quadriplegia, [...] specified sepsis] Onset: 07-29-2022 Episodic Thyroid disorders (6 sources) Hypothyroidism; Translations: [Hypothyroidism, unspecified] Onset: 08-05-2022 [...] Visit Summaryon 0 12-16-2022 Ambulatory Visit Summary PARISH LOPEZ :1980 Visit Date:12/16/2022 Ambulatory Visit Instructions Your Diagnosis Retractile testis Intermittent urinary incontinence Your Care Team Attending Physician - Cricket Levine MD Primary Care Physician - FAM [...] (oxcarbazepine 600 mg Tab) polyethylene glycol 3350 (PDX0886 oral powder for reconstitution) polyethylene glycol 3350 (polyethylene glycol 3350 17 gram packet) rifaximin (Xifaxan 550 mg oral tablet) senna (Senna 8.6 mg oral tablet) sodium chloride nasal (Ideal Saline Nasal Gel) tamsulosin Discharge Vitals Temperature [...] Application T (more content not included)... Normal [facility] Patient Educationon 12-17-19 23 Patient Education Obstetrics [...] provider. Document Revised: 08/14/2021 Document Reviewed: 08/14/2021 [employer] Patient Education ? 2022 [employer] Normal [facility] Physician Orderon 12-16-2022 Physician Order [id number] .00CD:127 Normal [facility] RAD - Ultrasound Reporton RAD - Ultrasound Report [id number] .00CD:127 Normal [facility] Urology Office/Clinic Noteon 12-16-2022 Urology Office/Clinic Note [...] of retractile testes. Pt currently resides in [facility]. CBC/CMP 08/01/22 1. 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 Follow-up With When Contact Information Cricket Levine MD, URL, URO Additional Instructions: PRN Patient Education [...] Eye-Both, QID atorvastatin, 10 mg, Oral, Daily Ideal Saline Nasal Gel, Nasal, TID azelastine nasal 137 mcg/inh spray, 2 spray(s), Nasal, As (more content not included)... Normal [facility] Comment on above: Result Comment: Elec tronically Signed By: Cricket Levine MD\.br\Date and Time Signed: 12/16/22 20:02 EDT\.br\Electronically Co-Signed By: Makayla Todd\.br\Date and Time Co-Signed: 12/16/22 11:27 EDT XR CHEST 1 Von 08-04-2022 XR CHEST 1 V EXAM: XR CHEST 1 V a t 1813 HISTORY: SHORTNESS OF BREATH COMPARISON: 07/28/2022 TECHNIQUE: [...] GUANAKITO MEADE Date: 2022-08-04 18:50 Normal [facility] AMMONIAon 08-02-2022 Ammonia (P) [Moles/Vol] 87 umol/L Critically high 11-32 [facility] Comment on above: Performed By: #### B MP #### [facility] [address] [place] [address] Dr. Deepak Greenfield AMMONIAon 08-01-2022 Ammonia (P) [Moles/Vol] 42 umol/L Critically high -32 [facility] Comment on above: Performed By: #### M G, CMP #### [facility] [address] [place] [address] Dr. Deepak Greenfield CBC W MANUAL DIFFon 08-02-19 23 ATYPICAL LYMPH # 0.41 103/ul Normal [facility] Comment on above: Performed By: #### M G, CMP #### [facility] [address] [place] [address] Dr. Deepak Greenfield ATYPICAL LYMPH % 7 % Normal [facility] Comment on above: Performed By: #### M G, CMP #### [facility] [address] [place] [address] Dr. Deepak Greenfield BAND # 0.0 103/ul Normal 0.0-0.3 [facility] Comment on above: Performed By: #### M G, CMP #### [facility] [address] [place] [address] Dr. Deepak Greenfield BAND % 0 % Normal 0-5 [facility] Comment on above: Performed By: #### M G, CMP #### [facility] [address] [place] [address] Dr. Deepak Greenfield BASOM # 0.00 103/ul Normal 0.00-0.10 [facility] Comment on above: Performed By: #### M G, CMP #### [facility] [address] [place] [address] Dr. Deepak Greenfield BASOM % 0.0 % Critically low 0.2-2.0 [facility] Comment on above: Performed By: #### M G, CMP #### [facility] [address] [place] [address] Dr. Deepak Greenfield BLAST # Normal [facility] Comment on above: Performed By: #### M G, CMP #### [facility] [address] [place] [address] Dr. Deepak Greenfield BLAST % Normal [facility] Comment on above: Performed By: #### M G, CMP #### [facility] [address] [place] [address] Dr. Deepak Greenfield CORRECTED WBC Normal 4.0-11.0 [facility] Comment on above: Performed By: #### M G, CMP #### [facility] [address] [place] [address] Dr. Deepak Greenfield EOS # 0.06 103/ul Normal 0.00-0.70 [facility] Comment on above: Performed By: #### M G, CMP #### [facility] [address] [place] [address] Dr. Deepak Greenfield EOS% 1.0 % Normal 0.9-7.0 [facility] Comment on above: Performed By: #### M G, CMP #### [facility] [address] [place] [address] Dr. Deepak Greenfield HCT 37.6 % Critically low 42.0-54.0 [facility] Comment on above: Performed By: #### M G, CMP #### [facility] [address] [place] [address] Dr. Deepak Greenfield HGB 12.3 g/dl Critically low 14.0-18.0 [facility] Comment on above: Performed By: #### M G, CMP #### [facility] [address] [place] [address] Dr. Deepak Greenfield LYMPHM # 1.91 103/ul Normal 1.20-3.80 [facility] Comment on above: Performed By: #### M G, CMP #### [facility] [address] [place] [address] Dr. Deepak Greenfield LYMPHM% 33.0 % Normal 20.5-60.0 [facility] Comment on above: Performed By: #### M G, CMP #### [facility] [address] [place] [address] Dr. Deepak Greenfield MCH 31.7 pg Normal 25.9-34.0 [facility] Comment on above: Performed By: #### M G, CMP #### [facility] [address] [place] [address] Dr. Deepak Greenfield MCHC 32.7 g/dl Normal 29.9-35.2 [facility] Comment on above: Performed By: #### M G, CMP #### [facility] [address] [place] [address] Dr. Deepak Greenfield MCV 96.9 fL Critically high 80.0-94.0 [facility] Comment on above: Performed By: #### M G, CMP #### [facility] [address] [place] [address] Dr. Deepak Greenfield METAMYELOCYTE # Normal [facility] Comment on above: Performed By: #### M G, CMP #### [facility] [address] [place] [address] Dr. Deepak Greenfield METAMYELOCYTE % Normal [facility] Comment on above: Performed By: #### M G, CMP #### [facility] [address] [place] [address] Dr. Deepak Greenfield MONOM# 0.29 103/ul Critically low 0.30-0.80 [facility] Comment on above: Performed By: #### M G, CMP #### [facility] [address] [place] [address] Dr. Deepak Greenfield MONOM% 5.0 % Normal 1.7-12.0 [facility] Comment on above: Performed By: #### M G, CMP #### [facility] [address] [address] [address] Deepak Greenfield MPV 11.0 fL Normal 9.5-13.5 [facility] Comment on above: Performed By: #### M G, CMP #### [facility] [address] [address] [address] Deepak Greenfield MYELOCYTE # Normal [facility] Comment on above: Performed By: #### M G, CMP #### [facility] [address] [address] [address] Deepak Greenfield MYELOCYTE % Normal [facility] Comment on above: Performed By: #### M G, CMP #### [facility] [address] [place] [address] Dr. Deepak Greenfield NRBC Normal [facility] Comment on above: Performed By: #### M G, CMP #### [facility] [address] [address] [address] Deepak Greenfield PLT 208 103/ul Normal 150-450 [facility] Comment on above: Performed By: #### M G, CMP #### [facility] [address] [address] [address] Deepak Greenfield RBC 3.88 106/ul Critically low 4.70-6.10 [facility] Comment on above: Performed By: #### M G, CMP #### [facility] [address] [address] [address] Deepak Greenfield RDW 12.9 % Normal 11.0-15.0 [facility] Comment on above: Performed By: #### M G, CMP #### [facility] [address] [address] [address] Deepak Greenfield SEG # 3.13 103/ul Normal 1.40-6.50 [facility] Comment on above: Performed By: #### M G, CMP #### [facility] [address] [address] [address] Deepak Greenfield SEG % 54.0 % Normal 43.0-75.0 [facility] Comment on above: Performed By: #### M G, CMP #### [facility] [address] [place] [address] Dr. Deepak Greenfield STOMATOCYTES 3+ Normal [facility] Comment on above: Performed By: #### M G, CMP #### [facility] [address] [place] [address] Dr. Deepak Greenfield WBC 5.8 103/ul Normal 4.0-11.0 [facility] Comment on above: Performed By: #### M G, CMP #### [facility] [address] [place] [address] Dr. Deepak Greenfield PROF CHEM 8 (BAS METB)on Anion gap [Moles/Vol] 16.1 mmol/L Normal [facility] Comment on above: Performed By: #### B MP #### [facility] [address] [place] [address] Dr. Deepak Greenfield Calcium [Mass/Vol] 9.3 mg/dL Normal 8.5-10.1 [facility] Comment on above: Performed By: #### B MP #### [facility] [address] [place] [address] Dr. Deepak Greenfield Chloride [Moles/Vol] 105 mmol/L Normal 98-107 [facility] Comment on above: Performed By: #### B MP #### [facility] [address] [place] [address] Dr. Deepak Greenfield CO2 [Moles/Vol] 27.6 mmol/L Normal 21.0-32.0 [facility] Comment on above: Performed By: #### B MP #### [facility] [address] [place] [address] Dr. Deepak Greenfield Creatinine [Mass/Vol] 0.96 mg/dL Normal 0.70-1.30 [facility] Comment on above: Performed By: #### B MP #### [facility] [address] [place] [address] Dr. Deepak Greenfield EGFR-AF CANADIAN >60 Normal >=60 [facility] Comment on above: Performed By: #### B MP #### [facility] [address] [address] [address] Deepak Greenfield EGFR-NON AF CANADIAN >60 Normal >=60 [facility] Comment on above: Performed By: #### B MP #### [facility] [address] [address] [address] Deepak Greenfield Glucose [Mass/Vol] 160 mg/dL Critically high 74-[address] [facility] Comment on above: Performed By: #### B MP #### [facility] [address] [address] [address] Deepak Greenfield Potassium [Moles/Vol] 3.7 mmol/L Normal 3.5-5.1 [facility] Comment on above: Performed By: #### B MP #### [facility] [address] [address] [address] Deepak Greenfield Sodium [Moles/Vol] 145 mmol/L Normal 136-145 [facility] Comment on above: Performed By: #### B MP #### [facility] [address] [address] [address] Deepak Greenfield Urea nitrogen [Mass/Vol] 5.0 mg/dL Critically low 7.0-18.0 [facility] Comment on above: Performed By: #### B MP #### [facility] [address] [address] [address] Deepak Greenfield Urea nitrogen/Creatinine [Mass ratio] 5.2 mg/mg Normal [facility] Comment on above: Performed By: #### B MP #### [facility] [address] [address] [address] Deepak Greenfield AMMONIAon 07-31-2022 Ammonia (P) [Moles/Vol] 94 umol/L Critically high 11-32 [facility] Comment on above: Performed By: #### M G, CMP #### [facility] [address] [place] [address] Dr. Deepak Greenfield CBC AUTO DIFFon 07-31-2022 BASO # 0.0 103/ul Normal 0.0-0.1 [facility] Comment on above: Performed By: #### B MP #### [facility] [address] [address] [address] Deepak Greenfield Basophils/100 WBC (Bld) 0.1 % Critically low 0.2-2.0 [facility] Comment on above: Performed By: #### B MP #### [facility] [address] [place] [address] Dr. Deepak Greenfield EO # 0.0 103/ul Normal 0.0-0.7 [facility] Comment on above: Performed By: #### B MP #### [facility] [address] [place] [address] Dr. Deepak Greenfield Eosinophils/100 WBC (Bld) 0.0 % Critically low 0.9-7.0 [facility] Comment on above: Performed By: #### B MP #### [facility] [address] [place] [address] Dr. Deepak Greenfield Erythrocyte distribution width (RBC) [Ratio] 13.1 % Normal 11.0-15.0 [facility] Comment on above: Performed By: #### B MP #### [facility] [address] [place] [address] Dr. Deepak Greenfield Hematocrit (Bld) [Volume fraction] 32.4 % Critically low 42.0-54.0 [facility] Comment on above: Performed By: #### B MP #### [facility] [address] [place] [address] Dr. Deepak Greenfield Hemoglobin (Bld) [Mass/Vol] 10.9 g/dL Critically low 14.0-18.0 [facility] Comment on above: Performed By: #### B MP #### [facility] [address] [place] [address] Dr. Deepak Greenfield IG # 0.02 10e3/ul Normal 0.00-0.03 [facility] Comment on above: Performed By: #### B MP #### [facility] [address] [place] [address] Dr. Deepak Greenfield IG % 0.3 % Normal 0.0-0.5 [facility] Comment on above: Performed By: #### B MP #### [facility] [address] [place] [address] Dr. Deepak Greenfield LYMPH # 2.7 103/ul Normal 1.2-3.8 [facility] Comment on above: Performed By: #### B MP #### [facility] [address] [place] [address] Dr. Deepak Greenfield Lymphocytes/100 WBC (Bld) 38.9 % Normal 20.5-60.0 [facility] Comment on above: Performed By: #### B MP #### [facility] [address] [place] [address] Dr. Deepak Greenfield MANUAL DIFF REQ NO Normal [facility] Comment on above: Performed By: #### B MP #### [facility] [address] [place] [address] Dr. Deepak Greenfield MCH (RBC) [Entitic mass] 32.3 pg Normal 25.9-34.0 [facility] Comment on above: Performed By: #### B MP #### [facility] [address] [place] [address] Dr. Deepak Greenfield MCHC (RBC) [Mass/Vol] 33.6 g/dL Normal 29.9-35.2 [facility] Comment on above: Performed By: #### B MP #### [facility] [address] [place] [address] Dr. Deepak Greenfield MCV (RBC) [Entitic vol] 96.1 fL Critically high 80.0-94.0 [facility] Comment on above: Performed By: #### B MP #### [facility] [address] [place] [address] Dr. Deepak Greenfield MONO # 0.3 103/ul Normal 0.3-0.8 [facility] Comment on above: Performed By: #### B MP #### [facility] [address] [place] [address] Dr. Deepak Greenfield Monocytes/100 WBC (Bld) 4.9 % Normal 1.7-12.0 [facility] Comment on above: Performed By: #### B MP #### [facility] [address] [place] [address] Dr. Deepak Greenfield NEUT # 3.9 103/ul Normal 1.4-6.5 [facility] Comment on above: Performed By: #### B MP #### [facility] [address] [place] [address] Dr. Deepak Greenfield Neutrophils/100 WBC (Bld) 55.8 % Normal 43.0-75.0 [facility] Comment on above: Performed By: #### B MP #### [facility] [address] [place] [address] Dr. Deepak Greenfield Platelet mean volume (Bld) [Entitic vol] 9.7 fL Normal 9.5-13.5 [facility] Comment on above: Performed By: #### B MP #### [facility] [address] [place] [address] Dr. Deepak Greenfield PLT 296 103/ul Normal 150-450 [facility] Comment on above: Performed By: #### B MP #### [facility] [address] [place] [address] Dr. Deepak Greenfield RBC 3.37 106/ul Critically low 4.70-6.10 [facility] Comment on above: Performed By: #### B MP #### [facility] [address] [place] [address] Dr. Deepak Greenfield WBC 7.0 103/ul Normal 4.0-11.0 [facility] Comment on above: Performed By: #### B MP #### [facility] [address] [place] [address] Dr. Deepak Greenfield PROF CHEM 8 (BAS METB)on Anion gap [Moles/Vol] 14.9 mmol/L Normal [facility] Comment on above: Performed By: #### C BC #### [facility] [address] [place] [address] Dr. Deepak Greenfield Calcium [Mass/Vol] 8.8 mg/dL Normal 8.5-10.1 [facility] Comment on above: Performed By: #### C BC #### [facility] [address] [place] [address] Dr. Deepak Greenfield Chloride [Moles/Vol] 105 mmol/L Normal 98-107 [facility] Comment on above: Performed By: #### C BC #### [facility] [address] [address] [address] Deepak Greenfield CO2 [Moles/Vol] 26.4 mmol/L Normal 21.0-32.0 [facility] Comment on above: Performed By: #### C BC #### [facility] [address] [address] [address] Deepak Greenfield Creatinine [Mass/Vol] 0.70 mg/dL Normal 0.70-1.30 [facility] Comment on above: Performed By: #### C BC #### [facility] [address] [place] [address] Dr. Deepak Greenfield EGFR-AF CANADIAN >60 Normal >=60 [facility] Comment on above: Performed By: #### C BC #### [facility] [address] [place] [address] Dr. Deepak Greenfield EGFR-NON AF CANADIAN >60 Normal >=60 [facility] Comment on above: Performed By: #### C BC #### [facility] [address] [address] [address] Deepak Greenfield Glucose [Mass/Vol] 129 mg/dL Critically high 74-106 [facility] Comment on above: Performed By: #### C BC #### [facility] [address] [address] [address] Deepak Greenfield Potassium [Moles/Vol] 4.3 mmol/L Normal 3.5-5.1 [facility] Comment on above: Performed By: #### C BC #### [facility] [address] [address] [address] Deepak Greenfield Sodium [Moles/Vol] 142 mmol/L Normal 136-145 [facility] Comment on above: Performed By: #### C BC #### [facility] [address] [place] [address] Dr. Deepak Greenfield Urea nitrogen [Mass/Vol] 6.0 mg/dL Critically low 7.0-18.0 [facility] Comment on above: Performed By: #### C BC #### [facility] [address] [place] [address] Dr. Deepak Greenfield Urea nitrogen/Creatinine [Mass ratio] 8.6 mg/mg Normal [facility] Comment on above: Performed By: #### C BC #### [facility] [address] [place] [address] Dr. Deepak Greenfield AMMONIAon 07-30-2022 Ammonia (P) [Moles/Vol] 64 umol/L Critically high 11-32 [facility] Comment on above: Performed By: #### C BC #### [facility] [address] [place] [address] Dr. Deepak Greenfield CBC AUTO DIFFon 07-30-2022 BASO # 0.0 103/ul Normal 0.0-0.1 [facility] Comment on above: Performed By: #### I NFLUAB #### [facility] [address] [place] [address] Dr. Deepak Greenfield Basophils/100 WBC (Bld) 0.0 % Critically low 0.2-2.0 [facility] Comment on above: Performed By: #### I NFLUAB #### [facility] [address] [place] [address] Dr. Deepak Greenfield EO # 0.0 103/ul Normal 0.0-0.7 [facility] Comment on above: Performed By: #### I NFLUAB #### [facility] [address] [place] [address] Dr. Deepak Greenfield Eosinophils/100 WBC (Bld) 0.0 % Critically low 0.9-7.0 [facility] Comment on above: Performed By: #### I NFLUAB #### [facility] [address] [place] [address] Dr. Deepak Greenfield Erythrocyte distribution width (RBC) [Ratio] 13.1 % Normal 11.0-15.0 [facility] Comment on above: Performed By: #### I NFLUAB #### [facility] [address] [place] [address] Dr. Deepak Greenfield Hematocrit (Bld) [Volume fraction] 31.4 % Critically low 42.0-54.0 [facility] Comment on above: Performed By: #### I NFLUAB #### [facility] [address] [place] [address] Dr. Deepak Greenfield Hemoglobin (Bld) [Mass/Vol] 10.5 g/dL Critically low 14.0-18.0 [facility] Comment on above: Performed By: #### I NFLUAB #### [facility] [address] [place] [address] Dr. Deepak Greenfield IG # 0.01 10e3/ul Normal 0.00-0.03 [facility] Comment on above: Performed By: #### I NFLUAB #### [facility] [address] [place] [address] Dr. Deepak Greenfield IG % 0.2 % Normal 0.0-0.5 [facility] Comment on above: Performed By: #### I NFLUAB #### [facility] [address] [place] [address] Dr. Deepak Greenfield LYMPH # 1.5 103/ul Normal 1.2-3.8 [facility] Comment on above: Performed By: #### I NFLUAB #### [facility] [address] [place] [address] Dr. Deepak Greenfield Lymphocytes/100 WBC (Bld) 27.5 % Normal 20.5-60.0 [facility] Comment on above: Performed By: #### I NFLUAB #### [facility] [address] [place] [address] Dr. Deepak Greenfield MANUAL DIFF REQ NO Normal [facility] Comment on above: Performed By: #### I NFLUAB #### [facility] [address] [place] [address] Dr. Deepak Greenfield MCH (RBC) [Entitic mass] 32.4 pg Normal 25.9-34.0 [facility] Comment on above: Performed By: #### I NFLUAB #### [facility] [address] [place] [address] Dr. Deepak Greenfield MCHC (RBC) [Mass/Vol] 33.4 g/dL Normal 29.9-35.2 [facility] Comment on above: Performed By: #### I NFLUAB #### [facility] [address] [address] [address] Deepak Greenfield MCV (RBC) [Entitic vol] 96.9 fL Critically high 80.0-94.0 [facility] Comment on above: Performed By: #### I NFLUAB #### [facility] [address] [place] [address] Dr. Deepak Greenfield MONO # 0.2 103/ul Critically low 0.3-0.8 [facility] Comment on above: Performed By: #### I NFLUAB #### [facility] [address] [place] [address] Dr. Deepak Greenfield Monocytes/100 WBC (Bld) 2.9 % Normal 1.7-12.0 [facility] Comment on above: Performed By: #### I NFLUAB #### [facility] [address] [place] [address] Dr. Deepak Greenfield NEUT # 3.8 103/ul Normal 1.4-6.5 [facility] Comment on above: Performed By: #### I NFLUAB #### [facility] [address] [place] [address] Dr. Deepak Greenfield Neutrophils/100 WBC (Bld) 69.4 % Normal 43.0-75.0 [facility] Comment on above: Performed By: #### I NFLUAB #### [facility] [address] [place] [address] Dr. Deepak Greenfield Platelet mean volume (Bld) [Entitic vol] 9.4 fL Critically low 9.5-13.5 [facility] Comment on above: Performed By: #### I NFLUAB #### [facility] [address] [place] [address] Dr. Deepak Greenfield PLT 256 103/ul Normal 150-450 [facility] Comment on above: Performed By: #### I NFLUAB #### [facility] [address] [place], [place] [address] Dr. Deepak Greenfield RBC 3.24 106/ul Critically low 4.70-6.10 [facility] Comment on above: Performed By: #### I NFLUAB #### [facility] [address] [place], [place] [address] Dr. Deepak Greenfield WBC 5.5 103/ul Normal 4.0-11.0 [facility] Comment on above: Performed By: #### I NFLUAB #### [facility] [address] [place], [place] [address] Dr. Deepak Greenfield Coding Summary.on 07-30-2022 Coding Summary. CD:[id number] W w+PGhlYWQ+EK1WZGZqQ91 lsZHsuM2nE4MWNYfIFuyg ADNPTLgLZiWyqnOyFY3xj XNjZXJu IC8+ZK2uTSByTyvviOGlu 5E6hON3G38jxu3kXXskiN X8JSLhJgVegvczq2plyYk 6IDcuNmluOyBt IVNznY71QGB7aH70Cg57a QAgpVBgt1dpyCw5IqEuLO ZpLOO2tIdzXSieq5HxROL fU79lwXAxd9R3 DELbmOwfvWHrDkAdcHZ5w S8kPGollpajq3oqhtrsWw q4ub98oZKfz9H3kJT1A9A jwsX1WYKajWZq BtizgJUAwH3cxczcq1puy fpsRvLeFFMtTAs8QVn3KX TafIjuNaSwPH02SUL8TKQ fzuGjJ3XjBVOv kCfuZjH5i0G4Zy0EM0XIL xryK7BBGVECZLnmnUF+PC 77to07S7KkVfskSso4MRX hDQF1zFJ3sU5u RAMyPOakq7O9fHE6U3Jvw xSrqz2ms1rvOHBuXWjrX1 6skCAzq9F6HWSmuIP9IQD haRsbLgKgaN76 Oyc+BIXbqSqha0WfHrpxa 3jsg8kdbAa7AkebOURekk VupZtsQAB5e4SgAd4vMQI mxGC1vKX0sF9g JjBsHuG0WSzvX606XqRpi DQjGjhmO07oN5LpoHU+PH BuFlf5CQDsiChjAI6nM1F hZGRpbmctbGVm kGexFU7eXJIzbcthFWYfq M3mCIKiI4s1PxZePkX8LX dsH3NqMANgsdvrHn93pX9 rLsZhLwR0KTtk C3KqvcW7JALipROlUMnbH IM2L61im6F6DERgZXKwJG O3yGC2gH8ryXsyjiebsBV mdDsgdmVydGlj RLnxUTnpR583NIXmgHxdG kNvZGluZyBEYXRlOiAgMD QvMTMvMjAyMzwvdGQ+PHR eGJQ1gGfoEHGe gUIvSLyfXj8pwZutvOsjT U5eHPOnyalnBJUzwH0lFH VnwKFqrDlaWG8aEWXyuyg cv048TvSdNZS3 GDDolOVoS1ExqT6yBdHtS RYdLQWfN5QugKRuYFirT0 45PAqqQbY5GUTrjaJeZ4X sLWFsaWduOiB0 e3K2Le1Jp1EgkxvwV7Djb ZVmMcVcNfsxJSf0I4OzBm wvdHI+HU81UVZgKK24IYj 4KSH2pLhwYPef MMPqS5AcsZ2ySwAhEIJvE GRkOyc+PHRhYmxlIHdpZH RoPScxMDAlJyBzdHlsZT0 rZa7mWXLuMGLb bNirvQBhCtXtv8flTEXqJ ObhBM7dwSxdJ0VnuXV4QV Rjp9b0Fu07O46nX1KzlDA +XMVbkFG9jYB6 vU8kLmQtSfY1QIlnO086R lIvfIXkBauys0eyy3wzgP n0SwV5OLWguaJwdMwtMDK 9u6MhEj05Y60f IHdpZHRoPSIxNSUiIHZhb Wojow6mbQ0tTa4+PGNvbC W6eFZ4zT4mFdOlRfX8LOc oW624JtWpeEXh Booje1njw7lvvUu8NmEoY ULjvdJyoGyhWYV4x3FcDj 06V5FbbKqng7KtOnz8jl4 9kCWou4D9aCD4 Z0GmBCDqtrymvMPswOgnH S5tRTPpxzctUWYhaT7mRE AjM1k0UxTxNfZ0OBcoO5Y vszB6SFMzcNKp FYUjoGUUhP9vksjkj1sum vzeDwAeYLEfXUu0OGo8GV LurSylZzApKTP3RrY0JIR 0wCXwuP8paLfw wexqwK4kJzm+TRG8cKAgm EIIPI0sDuadfDI+PHRkIH H6uIvkFPoiLUGdrV9qCXW dZ2s6MyXjCuB4 WBdwT3LzxnP5PMIofHWzL CJmrGJPzR2mxphlf2aeej hxVbHdACXsNSa3SEw3SWX saWduOiBsZWZ0 QqN7OKI3tWZhtC2ppDmxo bsgfR2nYwq+QmlydGggRG G2ZVk5T9PsZru9TQDndAd cRN1ayLMyAAdt Wp1ifNndsIzuWA4nGRCxp virw800BqHvj2leFECfiD RyDKkcERV5W92mq0Y1SZK mBTLeXUD6cXP1 hS2enXczdunfeNYekCmxi sZnpJtvTUalPMomT988KS CmvFvjWcUkSUa8F8QgHnv 8RUYldZriDE2v kYYmSDjtZk2aoVehvWheO Q5cDSGuacvva544UnNio6 dgYAQueIRqUZbjUJS7S66 hs2L7CNHtNPSr TYD0bVF0gR2gkUckiwpgs GVmdDsgdmVydGljYWwtYW asA089FIHghNuzAvDcuIl 5P8PcFus3AIBj aVocIX3nsYQbXUwyMc0li BonlKhbPH9iCRCabanzf6 62MrWyv3bhEDGwuVXdDRi iWCU1Q31br6T9 BKEwQKYyDXC9gYX4aC9io GlnbjogbGVmdDsgdmVydG zdLNkeCNjqF309ZIZlwYs nPlBhdGllbnQg NCnaNUp1W7CaLqvjoTC+P A24LOOyWW68dZTklDEnd8 jihHj9RdZtNIVeDAU6vEs fVWvsc9XjLNBf Y07dqHIlg7O8RFXriHfqr NLsPjApiLG2fN0zQUihjk zsy6uwsmsiGqahy6dmul5 7gN57N71wAKce ZHRoPSIzMCUiIHZhbGlnb e3scF9eFc1+XLWqjIH9aS V2sM6tDDGtHmK4ZDfuV52 9InRvcCIvPjxj y0exj6cknLe0FvU3IJBxf cExpRzvLGU5x9TpVh71H3 9sIHdpZHRoPSIyMCUiIHZ inJjgte5bnD9b Ii8+WNIaaWJ1wFU6vV2eO bIfZqT1RJmmW437OfCnbJ EfLybqG19mT4MxaYT+PHR dWok0ZVTmjOpp VT4ifTDaCPacDa0uJGY3X tKbBoRiAGqjL0WvPQHhvf svhncniSW6TMYmLIMdnO8 5Ff6ejJkrVZEz bTLRxN3ewjjmb4vzdsreI aAoPAEqLLk1LUi2QEQatX srZtPiNUW8JtP3WZB7fUM kcM7gwMivkddj nH2rU2NgYNVtwcweVc25z L7dQgSiJnU4YGadAns+U0 4QABJREQSXVIQJKnTZES7 2HD38dJEtf8A6 mSS2O6AcYEJpjfvuojhrs ST1BOFmRRGjbF63vXYuIZ vcNh9ez2G0v091HSJfPCW fhJ73Jz5ruCnz VWYgqIUVnM2zcoequ1nzu mfyOwLaCQBoWTl0IRp2FZ IcnLkyFpAgFCF4XmU0IZJ 4kNXhfD6fqJrb nodepN7bQit+MTAvMTYvM El5PMabmEW+ANTmOEW4oP huHJtoPWUipA8oFTMxF1d 2OyWyCiQ0IHqh J1IfPAZpboylWc21fZ8bF mEaLwR7FKopI8QunxD0JE JcpUHfVQpjMHG7B30xm2D 5BHDkDPNcZQV2 lBN2oE7jwYvoqztnoUEsn DsgdmVydGljYWwtYWxpZ2 46IHRvcDsnPjQyIFllYXJ rJM91HU35wWFk b0W5hWB8E4ZoVUFxriwbi ajpmGA3KZCuBQEmvF53jZ HwPNapQq1td7G2y629IHG rBLClxE01Yv2k xGxsIMWniVPQlX0puaocp 2qxyreaEtMdULPkUMy6MH x6SXNglXzbKwAaALH7YpT 2VMP9bKSpjK3i iWnveojryJ8rLwb+TWFsZ TwvdGQ+NXJkFSY4qHvtCX rcBMRrkA2oTNDwF8o0KxZ sCiX2CPdyN8Gt AAKsyhsyYp85qM5mLwGcU tI7TJunO2UafbR7VWBpcJ PlLWvhTPY9D34gs2P1APA dNWClQDC3aTT4 bT1jsTuikrualSGlfJbbi oVuxCqnDNzuMKueT550VN CzxHadKt44qTKzoCogofN 1U0LfFtoayXZ+ SB14ODLlKS55hFXrjOHnv 5xxjSu8KyBkLFQaRTF2hE qoYNbsb2MsOTHwQ20qdAI nh6T3ZATweXmb rUBpAxAugIN3fO3bCSbpt qywv2xdwkruCbzpc0biqh 48gL45I22mTXfwSCWeOPY zMCUiIHZhbGln ue4ltR0kUm8+GMXsqRY7t LR5mS6tFgZbSbO5ELapQ1 02RrPffFJuOxwhh9jel7r stLt2ZuSpZMZi mbTmxEowSQQ0n5WoSe13G 29sIHdpZHRoPSIyMCUiIH RklQzfoz4mwH7uMc5+PC9 ie2tjxm81uE97 dHI+ZOTfXHW7iZcqUAlwB QRmeG3jRVtqXjU4FZWaAo KklV96zPRcOKdzWc3jrVf jwGqxRX5rRXFd iprbd887HuXnu8tiCQLfg YCpZEbmUAY3T95sx7S4PR HdVXPyHIT1jSU6oI6eqAm nbjogbGVmdDsg rnQczDisKIixKFscD485A MWqlFmoNeZdnFPlX8amow IIQA2qUeiogVF+PHRkIHN 0eWxlPSdwYWRk wU7hKDDwY9x5DvHnUkP0N VfnL6AckkE4CGZqwAMaLI BacRINsF1vieait8ujjlv gIzAwMDAwMDt0 SBf5RVXssUsqIkZtYFI7N dV9TYC9mRHnlZ6jqAswwm ifnB0nFps+RklOOjwvdGQ +WLUoBOQ2fLqf ATwaTQYcaR0dDXWyK4z5D sRiItD3ZChlQ6HlzuH9UC KkySBqSUPcuAMTvV4yjyx km2lhifofFbYy TSXiGQt1FBl7CMOejXrnB sFgDOL7MyX6SCI2nCEeeY 1lpEsxrnhuoX7pEpw+TVJ OOjwvdGQ+PHRk SPZ6cVabPKcxFZJxlV0fF EWxE3z3PeNpBaA5BRhpQ5 YwrtR3IXCgsQHiOXSnpBE QvO6koyfxv1gl wfzjSlBuFABrZUy5MZl0F AFhlRzgIqUdYNA5VqA0QU Q6hMJrfZ2raMpoxmleyI6 wOyc+VWI2BIC5 JW79NB71Y5GaFpwwxOIdy +PHRhYmxlIHdpZHRoPS kgOHErZfOxrDbvZH7hIr9 yZGVyLWNvbGxh cHNlOiBj (more content not included)... Normal [facility] PROF CHEM 8 (BAS METB)on Anion gap [Moles/Vol] 8.3 mmol/L Normal [facility] Comment on above: Performed By: #### I NFLUAB #### [facility] [address] [place] [address] Dr. Deepak Greenfield Calcium [Mass/Vol] 8.5 mg/dL Normal 8.5-10.1 [facility] [place] [facility] Comment on above: Performed By: #### I NFLUAB #### [facility] [address] [place] [address] Dr. Deepak Greenfield Chloride [Moles/Vol] 104 mmol/L Normal 98-107 [facility] Comment on above: Performed By: #### I NFLUAB #### [facility] [address] [address] [address] Deepak Greenfield CO2 [Moles/Vol] 30.0 mmol/L Normal 21.0-32.0 [facility] Comment on above: Performed By: #### I NFLUAB #### [facility] [address] [address] [address] Deepak Greenfield Creatinine [Mass/Vol] 0.46 mg/dL Critically low 0.70-1.30 [facility] Comment on above: Performed By: #### I NFLUAB #### [facility] [address] [address] [address] Deepak Greenfield EGFR-AF CANADIAN >60 Normal >=60 [facility] Comment on above: Performed By: #### I NFLUAB #### [facility] [address] [address] [address] Deepak Greenfield EGFR-NON AF CANADIAN >60 Normal >=60 [facility] Comment on above: Performed By: #### I NFLUAB #### [facility] [address] [place] [address] Dr. Deepak Greenfield Glucose [Mass/Vol] 152 mg/dL Critically high 74-[address] [facility] Comment on above: Performed By: #### I NFLUAB #### [facility] [address] [address] [address] Deepak Greenfield Potassium [Moles/Vol] 4.3 mmol/L Normal 3.5-5.1 [facility] Comment on above: Performed By: #### I NFLUAB #### [facility] [address] [place] [address] Dr. Deepak Greenfield Sodium [Moles/Vol] 138 mmol/L Normal 136-145 [facility] Comment on above: Performed By: #### I NFLUAB #### [facility] [address] [address] [address] Deepak Greenfield Urea nitrogen [Mass/Vol] 9.0 mg/dL Normal 7.0-18.0 [facility] Comment on above: Performed By: #### I NFLUAB #### [facility] [address] [place] [address] Dr. Deepak Greenfiedl Urea nitrogen/Creatinine [Mass ratio] 19.6 mg/mg Normal [facility] Comment on above: Performed By: #### I NFLUAB #### [facility] [address] [place] [address] Dr. Deepak Greenfield AMMONIAon 07-29-2022 Ammonia (P) [Moles/Vol] 69 umol/L Critically high 11-32 [facility] Comment on above: Performed By: #### A MM #### [facility] [address] [place] [address] Dr. Deepak Greenfield CBC AUTO DIFFon 07-29-2022 BASO # 0.0 103/ul Normal 0.0-0.1 [facility] Comment on above: Performed By: #### M G, CMP #### [facility] [address] [place] [address] Dr. Deepak Greenfield Basophils/100 WBC (Bld) 0.2 % Normal 0.2-2.0 [facility] Comment on above: Performed By: #### M G, CMP #### [facility] [address] [place] [address] Dr. Deepak Greenfield EO # 0.0 103/ul Normal 0.0-0.7 [facility] Comment on above: Performed By: #### M G, CMP #### [facility] [address] [place] [address] Dr. Deepak Greenfield Eosinophils/100 WBC (Bld) 0.0 % Critically low 0.9-7.0 [facility] Comment on above: Performed By: #### M G, CMP #### [facility] [address] [place] [address] Dr. Deepak Greenfield Erythrocyte distribution width (RBC) [Ratio] 13.2 % Normal 11.0-15.0 [facility] Comment on above: Performed By: #### M G, CMP #### [facility] [address] [place] [address] Dr. Deepak Greenfield Hematocrit (Bld) [Volume fraction] 33.1 % Critically low 42.0-54.0 [facility] Comment on above: Performed By: #### M G, CMP #### [facility] [address] [place] [address] Dr. Deepak Greenfield Hemoglobin (Bld) [Mass/Vol] 10.8 g/dL Critically low 14.0-18.0 [facility] Comment on above: Performed By: #### M G, CMP #### [facility] [address] [address] [address] Deepak Greenfield IG # 0.04 10e3/ul Critically high 0.00-0.03 [facility] Comment on above: Performed By: #### M G, CMP #### [facility] [address] [address] [address] Deepak Greenfield IG % 0.5 % Normal 0.0-0.5 [facility] Comment on above: Performed By: #### M G, CMP #### [facility] [address] [address] [address] Deepak Greenfield LYMPH # 1.1 103/ul Critically low 1.2-3.8 [facility] Comment on above: Performed By: #### M G, CMP #### [facility] [address] [address] [address] Deepak Greenfield Lymphocytes/100 WBC (Bld) 13.6 % Critically low 20.5-60.0 [facility] Comment on above: Performed By: #### M G, CMP #### [facility] [address] [address] [address] Deepak Greenfield MANUAL DIFF REQ NO Normal [facility] Comment on above: Performed By: #### M G, CMP #### [facility] [address] [address] [address] Deepak Greenfield MCH (RBC) [Entitic mass] 32.2 pg Normal 25.9-34.0 [facility] Comment on above: Performed By: #### M G, CMP #### [facility] [address] [address] [address] Deepak Greenfield MCHC (RBC) [Mass/Vol] 32.6 g/dL Normal 29.9-35.2 [facility] Comment on above: Performed By: #### M G, CMP #### [facility] [address] [address] [address] Deepak Greenfield MCV (RBC) [Entitic vol] 98.8 fL Critically high 80.0-94.0 [facility] Comment on above: Performed By: #### M G, CMP #### [facility] [address] [place] [address] Dr. Deepak Greenfield MONO # 0.3 103/ul Normal 0.3-0.8 [facility] Comment on above: Performed By: #### M G, CMP #### [facility] [address] [place] [address] Dr. Deepak Greenfield Monocytes/100 WBC (Bld) 3.8 % Normal 1.7-12.0 [facility] Comment on above: Performed By: #### M G, CMP #### [facility] [address] [place] [address] Dr. Deepak Greenfield NEUT # 6.7 103/ul Critically high 1.4-6.5 [facility] Comment on above: Performed By: #### M G, CMP #### [facility] [address] [place] [address] Dr. Deepak Greenfield Neutrophils/100 WBC (Bld) 81.9 % Critically high 43.0-75.0 [facility] Comment on above: Performed By: #### M G, CMP #### [facility] [address] [place] [address] Dr. Deepak Greenfield Platelet mean volume (Bld) [Entitic vol] 9.6 fL Normal 9.5-13.5 [facility] Comment on above: Performed By: #### M G, CMP #### [facility] [address] [place] [address] Dr. Deepak Greenfield PLT 257 103/ul Normal 150-450 [facility] Comment on above: Performed By: #### M G, CMP #### [facility] [address] [place] [address] Dr. Deepak Greenfield RBC 3.35 106/ul Critically low 4.70-6.10 [facility] Comment on above: Performed By: #### M G, CMP #### [facility] [address] [place] [address] Dr. Deepak Greenfield WBC 8.2 103/ul Normal 4.0-11.0 [facility] Comment on above: Performed By: #### M G, CMP #### [facility] [address] [address] [address] Deepak Greenfield LACTATE/LACTIC ACIDon 2022 Lactate [Moles/Vol] 1.1 mmol/L Normal 0.4-2.0 [facility] Comment on above: Performed By: #### I NFLUAB #### [facility] [address] [address] [address] Deepak Greenfield PROF CHEM 8 (BAS METB)on Anion gap [Moles/Vol] 9.4 mmol/L Normal [facility] Comment on above: Performed By: #### I NFLUAB #### [facility] [address] [place] [address] Dr. Deepak Greenfield Calcium [Mass/Vol] 8.0 mg/dL Critically low 8.5-10.1 [facility] Comment on above: Performed By: #### I NFLUAB #### [facility] [address] [place] [address] Dr. Deepak Greenfield Chloride [Moles/Vol] 105 mmol/L Normal 98-107 [facility] Comment on above: Performed By: #### I NFLUAB #### [facility] [address] [place] [address] Dr. Deepak Greenfield CO2 [Moles/Vol] 30.7 mmol/L Normal 21.0-32.0 [facility] Comment on above: Performed By: #### I NFLUAB #### [facility] [address] [place] [address] Dr. Deepak Greenfield Creatinine [Mass/Vol] 0.66 mg/dL Critically low 0.70-1.30 [facility] Comment on above: Performed By: #### I NFLUAB #### [facility] [address] [place] [address] Dr. Deepak Greenfield EGFR-AF CANADIAN >60 Normal >=60 [facility] Comment on above: Performed By: #### I NFLUAB #### [facility] [address] [address] [address] Deepak Greenfield EGFR-NON AF CANADIAN >60 Normal >=60 [facility] Comment on above: Performed By: #### I NFLUAB #### [facility] [address] [address] [address] Deepak Greenfield Glucose [Mass/Vol] 177 mg/dL Critically high 74-[address] [facility] Comment on above: Performed By: #### I NFLUAB #### [facility] [address] [address] [address] Deepak Greenfield Potassium [Moles/Vol] 4.1 mmol/L Normal 3.5-5.1 [facility] Comment on above: Performed By: #### I NFLUAB #### [facility] [address] [place] [address] Dr. Deepak Greenfield Sodium [Moles/Vol] 141 mmol/L Normal 136-145 [facility] Comment on above: Performed By: #### I NFLUAB #### [facility] [address] [place] [address] Dr. Deepak Greenfield Urea nitrogen [Mass/Vol] 9.0 mg/dL Normal 7.0-18.0 [facility] Comment on above: Performed By: #### I NFLUAB #### [facility] [address] [place] [address] Dr. Deepak Greenfield Urea nitrogen/Creatinine [Mass ratio] 13.6 mg/mg Normal [facility] Comment on above: Performed By: #### I NFLUAB #### [facility] [address] [place] [address] Dr. Deepak Greenfield AMMONIAon 07-28-2022 Ammonia (P) [Moles/Vol] 68 umol/L Critically high 11-32 [facility] Comment on above: Performed By: #### B MP #### [facility] [address] [place] [address] Dr. Deepak Greenfield CBC AUTO DIFFon 07-28-2022 BASO # 0.0 103/ul Normal 0.0-0.1 [facility] Comment on above: Performed By: #### C BC #### [facility] [address] [address] [address] Deepak Greenfield Basophils/100 WBC (Bld) 0.3 % Normal 0.2-2.0 [facility] Comment on above: Performed By: #### C BC #### [facility] [address] [place] [address] Dr. Deepak Greenfield EO # 0.0 103/ul Normal 0.0-0.7 [facility] Comment on above: Performed By: #### C BC #### [facility] [address] [place] [address] Dr. Deepak Greenfield Eosinophils/100 WBC (Bld) 0.0 % Critically low 0.9-7.0 [facility] Comment on above: Performed By: #### C BC #### [facility] [address] [place] [address] Dr. Deepak Greenfield Erythrocyte distribution width (RBC) [Ratio] 13.3 % Normal 11.0-15.0 [facility] Comment on above: Performed By: #### C BC #### [facility] [address] [place] [address] Dr. Deepak Greenfield Hematocrit (Bld) [Volume fraction] 37.0 % Critically low 42.0-54.0 [facility] Comment on above: Performed By: #### C BC #### [facility] [address] [place] [address] Dr. Deepak Greenfield Hemoglobin (Bld) [Mass/Vol] 12.3 g/dL Critically low 14.0-18.0 [facility] Comment on above: Performed By: #### C BC #### [facility] [address] [place] [address] Dr. Deepak Greenfield IG # 0.06 10e3/ul Critically high 0.00-0.03 [facility] Comment on above: Performed By: #### C BC #### [facility] [address] [place] [address] Dr. Deepak Greenfield IG % 0.5 % Normal 0.0-0.5 [facility] Comment on above: Performed By: #### C BC #### [facility] [address] [address] [address] Deepak Greenfield LYMPH # 2.9 103/ul Normal 1.2-3.8 [facility] Comment on above: Performed By: #### C BC #### [facility] [address] [address] [address] Deepak Greenfield Lymphocytes/100 WBC (Bld) 23.5 % Normal 20.5-60.0 [facility] Comment on above: Performed By: #### C BC #### [facility] [address] [address] [address] Deepak Greenfield MANUAL DIFF REQ NO Normal [facility] Comment on above: Performed By: #### C BC #### [facility] [address] [place] [address] Dr. Deepak Greenfield MCH (RBC) [Entitic mass] 32.4 pg Normal 25.9-34.0 [facility] Comment on above: Performed By: #### C BC #### [facility] [address] [place] [address] Dr. Deepak Greenfield MCHC (RBC) [Mass/Vol] 33.2 g/dL Normal 29.9-35.2 [facility] Comment on above: Performed By: #### C BC #### [facility] [address] [place] [address] Dr. Deepak Greenfield MCV (RBC) [Entitic vol] 97.4 fL Critically high 80.0-94.0 [facility] Comment on above: Performed By: #### C BC #### [facility] [address] [place] [address] Dr. Deepak Greenfield MONO # 1.0 103/ul Critically high 0.3-0.8 [facility] Comment on above: Performed By: #### C BC #### [facility] [address] [place] [address] Dr. Deepak Greenfield Monocytes/100 WBC (Bld) 8.0 % Normal 1.7-12.0 [facility] Comment on above: Performed By: #### C BC #### [facility] [address] [place] [address] Dr. Deepak Greenfield NEUT # 8.3 103/ul Critically high 1.4-6.5 [facility] Comment on above: Performed By: #### C BC #### [facility] [address] [place] [address] Dr. Deepak Greenfield Neutrophils/100 WBC (Bld) 67.7 % Normal 43.0-75.0 [facility] Comment on above: Performed By: #### C BC #### [facility] [address] [place] [address] Dr. Deepak Greenfield Platelet mean volume (Bld) [Entitic vol] 9.7 fL Normal 9.5-13.5 [facility] Comment on above: Performed By: #### C BC #### [facility] [address] [place] [address] Dr. Deepak Greenfield PLT 325 103/ul Normal 150-450 [facility] Comment on above: Performed By: #### C BC #### [facility] [address] [place] [address] Dr. Deepak Greenfield RBC 3.80 106/ul Critically low 4.70-6.10 [facility] Comment on above: Performed By: #### C BC #### [facility] [address] [place] [address] Dr. Deepak Greenfield WBC 12.2 103/ul Critically high 4.0-11.0 [facility] Comment on above: Performed By: #### C BC #### [facility] [address] [place] [address] Dr. Deepak Greenfield CULTURE BLOODon 07-28-2022 Microscopic examination of blood, culture Culture Observations: NO GROWTH AT 5 DAYS. Normal [facility] Comment on above: Performed By: #### B [id number] #### [facility] [address] [place] [address] Dr. Deepak Greenfield Microscopic examination of blood, culture Culture Observations: NO GROWTH AT 5 DAYS. Normal [facility] Comment on above: Performed By: #### C BC #### [facility] [address] [place], [place] [id number] Dr. Deepak Greenfield LACTATE/LACTIC ACIDon 2022 Lactate [Moles/Vol] 2.5 mmol/L Critically high 0.4-2.0 [facility] Comment on above: Performed By: #### C VDTB #### [facility] [address] [place] [address] Dr. Deepak Greenfield PROF 14(COMP METB)on 023 Albumin [Mass/Vol] 3.1 g/dL Critically low 3.4-5.0 [facility] Comment on above: Performed By: #### C BC #### [facility] [address] [place] [address] Dr. Deepak Greenfield Albumin/Globulin [Mass ratio] 0.7 {ratio} Normal [facility] Comment on above: Performed By: #### C BC #### [facility] [address] [place] [address] Dr. Deepak Greenfield ALP [Catalytic activity/Vol] 51 U/L Normal 46-116 [facility] Comment on above: Performed By: #### C BC #### [facility] [address] [place] [address] Dr. Deepak Greenfield ALT [Catalytic activity/Vol] 106 U/L Critically high 16-63 [facility] Comment on above: Performed By: #### C BC #### [facility] [address] [place] [address] Dr. Deepak Greenfield Anion gap [Moles/Vol] 14.2 mmol/L Normal [facility] Comment on above: Performed By: #### C BC #### [facility] [address] [place] [address] Dr. Deepak Greenfield AST [Catalytic activity/Vol] 81 U/L Critically high 15-37 [facility] Comment on above: Performed By: #### C BC #### [facility] [address] [place] [address] Dr. Deepak Greenfield Bilirubin [Mass/Vol] 0.4 mg/dL Normal 0.2-1.0 [facility] Comment on above: Performed By: #### C BC #### [facility] [address] [address] [address] Deepak Greenfield Calcium [Mass/Vol] 8.9 mg/dL Normal 8.5-10.1 [facility] Comment on above: Performed By: #### C BC #### [facility] [address] [address] [address] Deepak Greenfield Chloride [Moles/Vol] 105 mmol/L Normal 98-107 [facility] Comment on above: Performed By: #### C BC #### [facility] [address] [place] [address] Dr. Deepak Greenfield CO2 [Moles/Vol] 27.9 mmol/L Normal 21.0-32.0 [facility] Comment on above: Performed By: #### C BC #### [facility] [address] [place] [address] Dr. Deepak Greenfield Creatinine [Mass/Vol] 0.77 mg/dL Normal 0.70-1.30 [facility] Comment on above: Performed By: #### C BC #### [facility] [address] [place] [address] Dr. Deepak Greenfield EGFR-AF CANADIAN >60 Normal >=60 [facility] Comment on above: Performed By: #### C BC #### [facility] [address] [place] [address] Dr. Deepak Greenfield EGFR-NON AF CANADIAN >60 Normal >=60 [facility] Comment on above: Performed By: #### C BC #### [facility] [address] [place] [address] Dr. Deepak Greenfield Globulin (S) [Mass/Vol] 4.3 g/dL Normal [facility] Comment on above: Performed By: #### C BC #### [facility] [address] [place] [address] Dr. Deepak Greenfield Glucose [Mass/Vol] 162 mg/dL Critically high 74-[address] [facility] Comment on above: Performed By: #### C BC #### [facility] [address] [place] [address] Dr. Deepak Greenfield Potassium [Moles/Vol] 4.1 mmol/L Normal 3.5-5.1 [facility] Comment on above: Performed By: #### C BC #### [facility] [address] [place] [address] Dr. Deepak Greenfield Protein [Mass/Vol] 7.4 g/dL Normal 6.4-8.2 [facility] Comment on above: Performed By: #### C BC #### [facility] [address] [place] [address] Dr. Deepak Greenfield Sodium [Moles/Vol] 143 mmol/L Normal 136-145 [facility] Comment on above: Performed By: #### C BC #### [facility] [address] [place] [address] Dr. Deepak Greenfield Urea nitrogen [Mass/Vol] 12.0 mg/dL Normal 7.0-18.0 [facility] Comment on above: Performed By: #### C BC #### [facility] [address] [place] [address] Dr. Deepak Greenfield Urea nitrogen/Creatinine [Mass ratio] 15.6 mg/mg Normal [facility] Comment on above: Performed By: #### C BC #### [facility] [address] [place] [address] Dr. Deepak Greenfield RESPIRATORY PANEL PLUSon Adenovirus Not detected Normal NOT DETECTED [facility] Comment on above: Performed By: #### B MP #### [facility] [address] [place] [address] Dr. Deepak Murphy. Parapertusis Not detected Normal NOT DETECTED [facility] Comment on above: Performed By: #### B MP #### [facility] [address] [place] [address] Dr. Deepak Murphy. Pertussis Not detected Normal NOT DETECTED [facility] Comment on above: Performed By: #### B MP #### [facility] [address] [place] [address] Dr. Deepak Greenfield Chlamydia Pneumoniae Not detected Normal NOT DETECTED [facility] Comment on above: Performed By: #### B MP #### [facility] [address] [address] [address] Deepak Greenfield Coronavirus 229E Not detected Normal NOT DETECTED [facility] Comment on above: Performed By: #### B MP #### [facility] [address] [address] [address] Deepak Greenfield Coronavirus HKU1 Not detected Normal NOT DETECTED [facility] Comment on above: Performed By: #### B MP #### [facility] [address] [address] [address] Deepak Greenfield Coronavirus NL63 Not detected Normal NOT DETECTED [facility] Comment on above: Performed By: #### B MP #### [facility] [address] [address] [address] Deepak Greenfield Coronavirus OC43 Not detected Normal NOT DETECTED [facility] Comment on above: Performed By: #### B MP #### [facility] [address] [place] [address] Dr. Deepak Greenfield Influenza A H1 Not detected Normal NOT DETECTED [facility] Comment on above: Performed By: #### B MP #### [facility] [address] [place] [address] Dr. Deepak Greenfield Influenza A H1 2009 Not detected Normal NOT DETECTED [facility] Comment on above: Performed By: #### B MP #### [facility] [address] [place] [address] Dr. Deepak Greenfield Influenza A H3 Not detected Normal NOT DETECTED [facility] Comment on above: Performed By: #### B MP #### [facility] [address] [place] [address] Dr. Deepak Greenfield Influenza B Not detected Normal NOT DETECTED [facility] Comment on above: Performed By: #### B MP #### [facility] [address] [place] [address] Dr. Deepak Greenfield Metapneumovirus Detected Abnormal NOT DETECTED [facility] Comment on above: Performed By: #### B MP #### [facility] [address] [address] [address] Deepak Greenfield Mycoplas. Pneumoniae Not detected Normal NOT DETECTED [facility] Comment on above: Performed By: #### B MP #### [facility] [address] [place] [address] Dr. Deepak Greenfield Parainfluenza 1 Not detected Normal NOT DETECTED [facility] Comment on above: Performed By: #### B MP #### [facility] [address] [place] [address] Dr. Deepak Greenfield Parainfluenza 2 Not detected Normal NOT DETECTED [facility] Comment on above: Performed By: #### B MP #### [facility] [address] [place] [address] Dr. Deepak Greenfield Parainfluenza 3 Not detected Normal NOT DETECTED [facility] Comment on above: Performed By: #### B MP #### [facility] [address] [place] [address] Dr. Deepak Greenfield Parainfluenza 4 Not detected Normal NOT DETECTED [facility] Comment on above: Performed By: #### B MP #### [facility] [address] [place] [address] Dr. Deepak Greenfield Rhino/Enterovirus Not detected Normal NOT DETECTED [facility] Comment on above: Performed By: #### B MP #### [facility] [address] [place] [address] Dr. Deepak Greenfield RP2 Header 1 RESPIRATORY PANEL: VIRUSES Normal [facility] Comment on above: Performed By: #### B MP #### [facility] [address] [place] [address] Dr. Deepak Greenfield RP2 Header 2 RESPIRATORY PANEL: BACTERIA Normal [facility] Comment on above: Performed By: #### B MP #### [facility] [address] [place] [address] Dr. Deepak Greenfield RSV Not detected Normal NOT DETECTED [facility] Comment on above: Performed By: #### B MP #### [facility] [address] [place] [address] Dr. Deepak Greenfield SARS-CoV-2 (COVID-19) RNA CINDY+probe Ql (Unsp spec) Not detected Normal NOT DETECTED [facility] Comment on above: Performed By: #### B MP #### [facility] [address] [address] [address] Deepak Greenfield XR CHEST 1 Von [...] Akua PEREZ Date: 2022-07-28 20:23 Normal [facility] AMMONIAon 07-27-2022 Ammonia (P) [Moles/Vol] 76 umol/L Critically high 11-32 [facility] Comment on above: Performed By: #### M Lacy, CMP #### [facility] [address] [address] [address] Deepak Greenfield CBC W MANUAL DIFFon 07-28-19 23 ATYPICAL LYMPH # Normal [facility] Comment on above: Performed By: #### M Lacy, CMP #### [facility] [address] [address] [address] Deepak Greenfield ATYPICAL LYMPH % Normal [facility] Comment on above: Performed By: #### M G, CMP #### [facility] [address] [address] [address] Deepak Greenfield BAND # 0.4 103/ul Critically high 0.0-0.3 [facility] Comment on above: Performed By: #### M G, CMP #### [facility] [address] [address] [address] Deepak Greenfield BAND % 4 % Normal 0-5 [facility] Comment on above: Performed By: #### M G, CMP #### [facility] [address] [address] [address] Deepak Greenfield BASOM # 0.00 103/ul Normal 0.00-0.10 [facility] Comment on above: Performed By: #### M G, CMP #### [facility] [address] [place] [address] Dr. Deepak Greenfield BASOM % 0.0 % Critically low 0.2-2.0 [facility] Comment on above: Performed By: #### M G, CMP #### [facility] [address] [place] [address] Dr. Deepak Greenfield BLAST # Normal [facility] Comment on above: Performed By: #### M G, CMP #### [facility] [address] [place] [address] Dr. Deepak Greenfield BLAST % Normal [facility] Comment on above: Performed By: #### M G, CMP #### [facility] [address] [place] [address] Dr. Deepak Greenfield CORRECTED WBC Normal 4.0-11.0 [facility] Comment on above: Performed By: #### M G, CMP #### [facility] [address] [place] [address] Dr. Deepak Greenfield EOS # 0.00 103/ul Normal 0.00-0.70 [facility] Comment on above: Performed By: #### M G, CMP #### [facility] [address] [place] [address] Dr. Deepak Greenfield EOS% 0.0 % Critically low 0.9-7.0 [facility] Comment on above: Performed By: #### M G, CMP #### [facility] [address] [place] [address] Dr. Deepak Greenfield HCT 29.6 % Critically low 42.0-54.0 [facility] Comment on above: Performed By: #### M G, CMP #### [facility] [address] [place] [address] Dr. Deepak Greenfield HGB 10.4 g/dl Critically low 14.0-18.0 [facility] Comment on above: Performed By: #### M G, CMP #### [facility] [address] [address] [address] Deepak Greenfield LYMPHM # 0.71 103/ul Critically low 1.20-3.80 [facility] Comment on above: Performed By: #### M G, CMP #### [facility] [address] [address] [address] Deepak Greenfield LYMPHM% 8.0 % Critically low 20.5-60.0 [facility] Comment on above: Performed By: #### M G, CMP #### [facility] [address] [place] [address] Dr. Deepak Greenfield MCH 33.0 pg Normal 25.9-34.0 [facility] Comment on above: Performed By: #### M G, CMP #### [facility] [address] [place] [address] Dr. Deepak Greenfield MCHC 35.1 g/dl Normal 29.9-35.2 [facility] Comment on above: Performed By: #### M G, CMP #### [facility] [address] [place] [address] Dr. Deepak Greenfield MCV 94.0 fL Normal 80.0-94.0 [facility] Comment on above: Performed By: #### M G, CMP #### [facility] [address] [place] [address] Dr. Deepak Greenfield METAMYELOCYTE # Normal [facility] Comment on above: Performed By: #### M G, CMP #### [facility] [address] [place] [address] Dr. Deepak Greenfield METAMYELOCYTE % Normal [facility] Comment on above: Performed By: #### M G, CMP #### [facility] [address] [place] [address] Dr. Deepak Greenfield MONOM# 0.71 103/ul Normal 0.30-0.80 [facility] Comment on above: Performed By: #### M G, CMP #### [facility] [address] [address] [address] Deepak Greenfield MONOM% 8.0 % Normal 1.7-12.0 [facility] Comment on above: Performed By: #### M G, CMP #### [facility] [address] [address] [address] Deepak Greenfield MPV 9.6 fL Normal 9.5-13.5 [facility] Comment on above: Performed By: #### M G, CMP #### [facility] [address] [address] [address] Deepak Greenfield MYELOCYTE # Normal [facility] Comment on above: Performed By: #### M G, CMP #### [facility] [address] [place] [address] Dr. Deepak Greenfield MYELOCYTE % Normal [facility] Comment on above: Performed By: #### M G, CMP #### [facility] [address] [address] [address] Deepak Greenfield NRBC Normal [facility] Comment on above: Performed By: #### M G, CMP #### [facility] [address] [address] [address] Deepak Greenfield PLT 267 103/ul Normal 150-450 [facility] Comment on above: Performed By: #### M G, CMP #### [facility] [address] [place] [address] Dr. Deepak Greenfield RBC 3.15 106/ul Critically low 4.70-6.10 [facility] Comment on above: Performed By: #### M G, CMP #### [facility] [address] [place] [address] Dr. Deepak Greenfield RDW 12.9 % Normal 11.0-15.0 [facility] Comment on above: Performed By: #### M G, CMP #### [facility] [address] [place] [address] Dr. Deepak Greenfield SEG # 7.12 103/ul Critically high 1.40-6.50 [facility] Comment on above: Performed By: #### M G, CMP #### [facility] [address] [address] [address] Deepak Greenfield SEG % 80.0 % Critically high 43.0-75.0 [facility] Comment on above: Performed By: #### M G, CMP #### [facility] [address] [address] [address] Deepak Greenfield WBC 8.9 103/ul Normal 4.0-11.0 [facility] Comment on above: Performed By: #### M G, CMP #### [facility] [address] [address] [address] Deepak Greenfield PROF CHEM 8 (BAS METB)on Anion gap [Moles/Vol] 12.4 mmol/L Normal [facility] Comment on above: Performed By: #### C BC #### [facility] [address] [place] [address] Dr. Deepak Greenfield Calcium [Mass/Vol] 8.2 mg/dL Critically low 8.5-10.1 [facility] Comment on above: Performed By: #### C BC #### [facility] [address] [place] [address] Dr. Deepak Greenfield Chloride [Moles/Vol] 101 mmol/L Normal 98-107 [facility] Comment on above: Performed By: #### C BC #### [facility] [address] [place] [address] Dr. Deepak Greenfield CO2 [Moles/Vol] 25.0 mmol/L Normal 21.0-32.0 [facility] Comment on above: Performed By: #### C BC #### [facility] [address] [place] [address] Dr. Deepak Greenfield Creatinine [Mass/Vol] 0.53 mg/dL Critically low 0.70-1.30 [facility] Comment on above: Performed By: #### C BC #### [facility] [address] [place] [address] Dr. Deepak Greenfield EGFR-AF CANADIAN >60 Normal >=60 [facility] Comment on above: Performed By: #### C BC #### [facility] [address] [address] [address] Deepak Greenfield EGFR-NON AF CANADIAN >60 Normal >=60 [facility] Comment on above: Performed By: #### C BC #### [facility] [address] [address] [address] Deepak Greenfield Glucose [Mass/Vol] 161 mg/dL Critically high 74-[address] [facility] Comment on above: Performed By: #### C BC #### [facility] [address] [address] [address] Deepak Greenfield Potassium [Moles/Vol] 4.4 mmol/L Normal 3.5-5.1 [facility] Comment on above: Performed By: #### C BC #### [facility] [address] [place] [address] Dr. Deepak Greenfield Sodium [Moles/Vol] 134 mmol/L Critically low 136-145 [facility] Comment on above: Performed By: #### C BC #### [facility] [address] [address] [address] Deepak Greenfield Urea nitrogen [Mass/Vol] 13.0 mg/dL Normal 7.0-18.0 [facility] Comment on above: Performed By: #### C BC #### [facility] [address] [place] [address] Dr. Deepak Greenfield Urea nitrogen/Creatinine [Mass ratio] 24.5 mg/mg Normal [facility] Comment on above: Performed By: #### C BC #### [facility] [address] [address] [address] Deepak Greenfield AMMONIAon 07-26-2022 Ammonia (P) [Moles/Vol] 56 umol/L Critically high 11-32 [facility] Comment on above: Performed By: #### M G, CMP #### [facility] [address] [place] [address] Dr. Deepak Greenfield CARDIAC BEATRIS ADMITon 023 CK [Catalytic activity/Vol] 83 U/L Normal 39-308 [facility] Comment on above: Performed By: #### B MP #### [facility] [address] [place] [address] Dr. Deepak Greenfield CK.MB [Mass/Vol] 0.86 ng/mL Normal <=3.60 [facility] Comment on above: Performed By: #### B MP #### [facility] [address] [place] [address] Dr. Deepak Greenfield HSTROP 7.4 pg/mL Normal 4.0-76.1 [facility] Comment on above: Result Comment: CUT- OFF POINTS HAVE BEEN ESTABLISHED BASED ON THE FOURTH UNIVERSAL DEFINITIONS OF MYOCARDIAL INFARCTION. THE UPPER REFERENCE LIMIT (URL) OF TROPONIN, DEFINED THE 99TH PERCENTILE OF cTnI DISTRIBUTION IN A REFERENCE POPULATION, HAS BEEN CONFIRMED THE DECISION THRESHOLD FOR [place] DIAGNOSIS. Performed By: #### B MP #### [facility] [address] [place] [address] Dr. Deepak Greenfield VALE 46 ng/mL Normal 16-96 [facility] Comment on above: Performed By: #### B MP #### [facility] [address] [place] [address] Dr. Deepak Greenfield CBC AUTO DIFFon 07-26-2022 BASO # 0.1 103/ul Normal 0.0-0.1 [facility] Comment on above: Performed By: #### M G, CMP #### [facility] [address] [place] [address] Dr. Deepak Greenfield Basophils/100 WBC (Bld) 0.5 % Normal 0.2-2.0 [facility] Comment on above: Performed By: #### M G, CMP #### [facility] [address] [place] [address] Dr. Deepak Greenfield EO # 0.2 103/ul Normal 0.0-0.7 [facility] Comment on above: Performed By: #### M G, CMP #### [facility] [address] [place] [address] Dr. Deepak Greenfield Eosinophils/100 WBC (Bld) 2.1 % Normal 0.9-7.0 [facility] Comment on above: Performed By: #### M G, CMP #### [facility] [address] [place] [address] Dr. Deepak Greenfield Erythrocyte distribution width (RBC) [Ratio] 13.2 % Normal 11.0-15.0 [facility] Comment on above: Performed By: #### M G, CMP #### [facility] [address] [place] [address] Dr. Deepak Greenfield Hematocrit (Bld) [Volume fraction] 36.7 % Critically low 42.0-54.0 [facility] Comment on above: Performed By: #### M G, CMP #### [facility] [address] [place] [address] Dr. Deepak Greenfield Hemoglobin (Bld) [Mass/Vol] 12.4 g/dL Critically low 14.0-18.0 [facility] Comment on above: Performed By: #### M G, CMP #### [facility] [address] [place] [address] Dr. Deepak Greenfield IG # 0.04 10e3/ul Critically high 0.00-0.03 [facility] Comment on above: Performed By: #### M G, CMP #### [facility] [address] [place] [address] Dr. Deepak Greenfield IG % 0.4 % Normal 0.0-0.5 [facility] Comment on above: Performed By: #### M G, CMP #### [facility] [address] [place] [address] Dr. Deepak Greenfield LYMPH # 1.7 103/ul Normal 1.2-3.8 [facility] Comment on above: Performed By: #### M G, CMP #### [facility] [address] [place] [address] Dr. Deepak Greenfield Lymphocytes/100 WBC (Bld) 15.6 % Critically low 20.5-60.0 [facility] Comment on above: Performed By: #### M G, CMP #### [facility] [address] [place] [address] Dr. Deepak Greenfield MANUAL DIFF REQ NO Normal [facility] Comment on above: Performed By: #### M G, CMP #### [facility] [address] [address] [address] Deepak Greenfield MCH (RBC) [Entitic mass] 32.5 pg Normal 25.9-34.0 [facility] Comment on above: Performed By: #### M G, CMP #### [facility] [address] [address] [address] Deepak Greenfield MCHC (RBC) [Mass/Vol] 33.8 g/dL Normal 29.9-35.2 [facility] Comment on above: Performed By: #### M G, CMP #### [facility] [address] [place] [address] Dr. Deepak Greenfield MCV (RBC) [Entitic vol] 96.3 fL Critically high 80.0-94.0 [facility] Comment on above: Performed By: #### M G, CMP #### [facility] [address] [place] [address] Dr. Deepak Greenfield MONO # 1.4 103/ul Critically high 0.3-0.8 [facility] Comment on above: Performed By: #### M G, CMP #### [facility] [address] [place] [address] Dr. Deepak Greenfield Monocytes/100 WBC (Bld) 12.8 % Critically high 1.7-12.0 [facility] Comment on above: Performed By: #### M G, CMP #### [facility] [address] [place] [address] Dr. Deepak Greenfield NEUT # 7.4 103/ul Critically high 1.4-6.5 [facility] Comment on above: Performed By: #### M G, CMP #### [facility] [address] [place] [address] Dr. Deepak Greenfield Neutrophils/100 WBC (Bld) 68.6 % Normal 43.0-75.0 [facility] Comment on above: Performed By: #### M G, CMP #### [facility] [address] [address] [address] Deepak Greenfield Platelet mean volume (Bld) [Entitic vol] 9.5 fL Normal 9.5-13.5 [facility] Comment on above: Performed By: #### M G, CMP #### [facility] [address] [place] [address] Dr. Deepak Greenfield PLT 314 103/ul Normal 150-450 [facility] Comment on above: Performed By: #### M G, CMP #### [facility] [address] [address] [address] Deepak Greenfield RBC 3.81 106/ul Critically low 4.70-6.10 [facility] Comment on above: Performed By: #### M G, CMP #### [facility] [address] [address] [address] Deepak Greenfield WBC 10.8 103/ul Normal 4.0-11.0 [facility] Comment on above: Performed By: #### M G, CMP #### [facility] [address] [place] [address] Dr. Deepak Greenfield Covid-19 PCR (CVDTB)on SARS-CoV-2 (COVID-19) RNA CINDY+probe Ql (Unsp spec) Not detected Normal NOT DETECTED [facility] Comment on above: Result Comment: When [...] for this test is supported by the [place] of [employer] and Human Service's declaration that [...] used). Performed By: #### C VDTBH #### [facility] [address] [place] [address] Dr. Deepak Greenfield INFLUENZA A AND B AGon 07-26 INFLUANEGH SEE BELOW Normal [facility] Comment on above: Result Comment: Nega tive for Flu A protein angiten. Infection due to Flu A cannot be ruled out. Flu A angiten in the sample may be below the detection limit of the test. Performed By: #### I NFLUAB #### [facility] [address] [place] [address] Dr. Deepak Greenfield INFLUBNEGH SEE BELOW Normal [facility] Comment on above: Result Comment: Nega tive for Flu B protein antigen. Infection due to Flu B cannot be ruled out. Flu B antigen in the sample may be below the detection limit of the test. Performed By: #### I NFLUAB #### [facility] [address] [place] [address] Dr. Deepak Greenfield INFLUENZA A AG Negative Normal NEGATIVE SEE COMMENT [facility] Comment on above: Performed By: #### I NFLUAB #### [facility] [address] [place] [address] Dr. Deepak Greenfield INFLUENZA B AG Negative Normal NEGATIVE SEE COMMENT [facility] Comment on above: Performed By: #### I NFLUAB #### [facility] [address] [place] [address] Dr. Deepak Greenfield LACTATE/LACTIC ACIDon 2022 Lactate [Moles/Vol] 1.2 mmol/L Normal 0.4-2.0 [facility] Comment on above: Performed By: #### M G, CMP #### [facility] [address] [place] [address] Dr. Deepak Greenfield PROF 14(COMP METB)on 023 Albumin [Mass/Vol] 3.3 g/dL Critically low 3.4-5.0 [facility] Comment on above: Performed By: #### B MP #### [facility] [address] [place] [address] Dr. Deepak Greenfield Albumin/Globulin [Mass ratio] 0.8 {ratio} Normal [facility] Comment on above: Performed By: #### B MP #### [facility] [address] [address] [address] Deepak Greenfield ALP [Catalytic activity/Vol] 45 U/L Critically low 46-116 [facility] Comment on above: Performed By: #### B MP #### [facility] [address] [address] [address] Deepak Greenfield ALT [Catalytic activity/Vol] 114 U/L Critically high 16-63 [facility] Comment on above: Performed By: #### B MP #### [facility] [address] [address] [address] Deepak Greenfield Anion gap [Moles/Vol] 14.5 mmol/L Normal [facility] Comment on above: Performed By: #### B MP #### [facility] [address] [place] [address] Dr. Deepak Greenfield AST [Catalytic activity/Vol] 71 U/L Critically high 15-37 [facility] Comment on above: Performed By: #### B MP #### [facility] [address] [place] [address] Dr. Deepak Greenfield Bilirubin [Mass/Vol] 0.7 mg/dL Normal 0.2-1.0 [facility] Comment on above: Performed By: #### B MP #### [facility] [address] [place] [address] Dr. Deepak Greenfield Calcium [Mass/Vol] 9.1 mg/dL Normal 8.5-10.1 [facility] Comment on above: Performed By: #### B MP #### [facility] [address] [address] [address] Deepak Greenfield Chloride [Moles/Vol] 98 mmol/L Normal 98-107 [facility] Comment on above: Performed By: #### B MP #### [facility] [address] [address] [address] Deepak Greenfield CO2 [Moles/Vol] 27.4 mmol/L Normal 21.0-32.0 [facility] Comment on above: Performed By: #### B MP #### [facility] [address] [address] [address] Deepak Greenfield Creatinine [Mass/Vol] 0.65 mg/dL Critically low 0.70-1.30 [facility] Comment on above: Performed By: #### B MP #### [facility] [address] [place] [address] Dr. Deepak Greenfield EGFR-AF CANADIAN >60 Normal >=60 [facility] Comment on above: Performed By: #### B MP #### [facility] [address] [address] [address] Deepak Greenfield EGFR-NON AF CANADIAN >60 Normal >=60 [facility] Comment on above: Performed By: #### B MP #### [facility] [address] [place] [address] Dr. Deepak Greenfield Globulin (S) [Mass/Vol] 4.2 g/dL Normal [facility] Comment on above: Performed By: #### B MP #### [facility] [address] [place] [address] Dr. Deepak Greenfield Glucose [Mass/Vol] 105 mg/dL Normal 74-106 [facility] [place] [facility] Comment on above: Performed By: #### B MP #### [facility] [address] [place] [address] Dr. Deepak Greenfield Potassium [Moles/Vol] 3.9 mmol/L Normal 3.5-5.1 [facility] Comment on above: Performed By: #### B MP #### [facility] [address] [place] [address] Dr. Deepak Greenfield Protein [Mass/Vol] 7.5 g/dL Normal 6.4-8.2 [facility] [place] [facility] Comment on above: Performed By: #### B MP #### [facility] [address] [place] [address] Dr. Deepak Greenfield Sodium [Moles/Vol] 136 mmol/L Normal 136-145 [facility] [place] [facility] Comment on above: Performed By: #### B MP #### [facility] [address] [place] [address] Dr. Deepak Greenfield Urea nitrogen [Mass/Vol] 13.0 mg/dL Normal 7.0-18.0 [facility] Comment on above: Performed By: #### B MP #### [facility] [address] [place], [place] [address] Dr. Deepak Greenfield Urea nitrogen/Creatinine [Mass ratio] 20.0 mg/mg Normal [facility] Comment on above: Performed By: #### B MP #### [facility] [address] [place], [place] [address] Dr. Deepak Greenfield XR CHEST 1 Von [...] by: ANICETO GARCIA Date: 2022-07-26 12:27 Normal [facility] Consent for Treatmenton Consent for Treatment [id number] .[id number]:127 Normal [facility] Physician Orderon 07-23-2022 Physician Order [id number]# 1.00CD:127 Normal [facility] XR Adult Swallowing Function w/ Videoon 07-23-2022 [...] mGy = 11.70 DAP = 270.92 Normal [facility] AMMONIAon 06-03-2022 Ammonia (P) [Moles/Vol] 112 umol/L Critically high 11-32 [facility] Comment on above: Performed By: #### A MM #### [facility] [address] [place] [address] Dr. Deepak Greenfield DEPAKENE/ VALPROIC ACIDon DEPAKENE 94.0 ug/ml Normal 50.0-100.0 [facility] Comment on above: Performed By: #### C BC #### [facility] [address] [place] [address] Dr. Deepak Greenfield LIVER PROFILEon 06-03-2022 Albumin [Mass/Vol] 3.6 g/dL Normal 3.4-5.0 [facility] Comment on above: Performed By: #### C BC #### [facility] [address] [place] [address] Dr. Deepak Greenfield Albumin/Globulin [Mass ratio] 0.9 {ratio} Normal [facility] Comment on above: Performed By: #### C BC #### [facility] [address] [place] [address] Dr. Deepak Greenfield ALP [Catalytic activity/Vol] 55 U/L Normal 46-116 [facility] Comment on above: Performed By: #### C BC #### [facility] [address] [place] [address] Dr. Deepak Greenfield ALT [Catalytic activity/Vol] 76 U/L Critically high 16-63 [facility] Comment on above: Performed By: #### C BC #### [facility] [address] [address] [address] Deepak Greenfield AST [Catalytic activity/Vol] 51 U/L Critically high 15-37 [facility] Comment on above: Performed By: #### C BC #### [facility] [address] [address] [address] Deepak Greenfield BILI, CONJUGATED 0.1 mg/dL Normal 0.0-0.2 [facility] Comment on above: Performed By: #### C BC #### [facility] [address] [address] [address] Deepak Greenfield Bilirubin [Mass/Vol] 0.4 mg/dL Normal 0.2-1.0 [facility] Comment on above: Performed By: #### C BC #### [facility] [address] [address] [address] Deepak Greenfield Globulin (S) [Mass/Vol] 4.1 g/dL Normal [facility] Comment on above: Performed By: #### C BC #### [facility] [address] [address] [address] Deepak Greenfield Protein [Mass/Vol] 7.7 g/dL Normal 6.4-8.2 [facility] Comment on above: Performed By: #### C BC #### [facility] [address] [address] [address] Deepak Greenfield AMMONIAon 04-22-2022 Ammonia (P) [Moles/Vol] 108 umol/L Critically high 11-32 [facility] Comment on above: Performed By: #### B MP #### [facility] [address] [address] [address] Deepak Greenfield CBC AUTO DIFFon 04-22-2022 BASO # 0.0 103/ul Normal 0.0-0.1 [facility] Comment on above: Performed By: #### C BC #### [facility] [address] [address] [address] Deepak Greenfield Basophils/100 WBC (Bld) 0.5 % Normal 0.2-2.0 [facility] Comment on above: Performed By: #### C BC #### [facility] [address] [place] [address] Dr. Deepak Greenfield EO # 0.1 103/ul Normal 0.0-0.7 [facility] Comment on above: Performed By: #### C BC #### [facility] [address] [place] [address] Dr. Deepak Greenfield Eosinophils/100 WBC (Bld) 1.4 % Normal 0.9-7.0 [facility] Comment on above: Performed By: #### C BC #### [facility] [address] [place] [address] Dr. Deepak Greenfield Erythrocyte distribution width (RBC) [Ratio] 14.2 % Normal 11.0-15.0 [facility] Comment on above: Performed By: #### C BC #### [facility] [address] [place] [address] Dr. Deepak Greenfield Hematocrit (Bld) [Volume fraction] 37.0 % Critically low 42.0-54.0 [facility] Comment on above: Performed By: #### C BC #### [facility] [address] [place] [address] Dr. Deepak Greenfield Hemoglobin (Bld) [Mass/Vol] 12.3 g/dL Critically low 14.0-18.0 [facility] Comment on above: Performed By: #### C BC #### [facility] [address] [place] [address] Dr. Deepak Greenfield IG # 0.00 10e3/ul Normal 0.00-0.03 [facility] Comment on above: Performed By: #### C BC #### [facility] [address] [place] [address] Dr. Deepak Greenfield IG % 0.0 % Normal 0.0-0.5 [facility] Comment on above: Performed By: #### C BC #### [facility] [address] [place] [address] Dr. Deepak Greenfield LYMPH # 3.3 103/ul Normal 1.2-3.8 [facility] Comment on above: Performed By: #### C BC #### [facility] [address] [place] [address] Dr. Deepak Greenfield Lymphocytes/100 WBC (Bld) 51.5 % Normal 20.5-60.0 [facility] Comment on above: Performed By: #### C BC #### [facility] [address] [place] [address] Dr. Deepak Greenfield MANUAL DIFF REQ NO Normal [facility] Comment on above: Performed By: #### C BC #### [facility] [address] [place] [address] Dr. Deepak Greenfield MCH (RBC) [Entitic mass] 32.2 pg Normal 25.9-34.0 [facility] Comment on above: Performed By: #### C BC #### [facility] [address] [place] [address] Dr. Deepak Greenfield MCHC (RBC) [Mass/Vol] 33.2 g/dL Normal 29.9-35.2 [facility] Comment on above: Performed By: #### C BC #### [facility] [address] [place] [address] Dr. Deepak rGeenfield MCV (RBC) [Entitic vol] 96.9 fL Critically high 80.0-94.0 [facility] Comment on above: Performed By: #### C BC #### [facility] [address] [place] [address] Dr. Deepak Greenfield MONO # 0.6 103/ul Normal 0.3-0.8 [facility] Comment on above: Performed By: #### C BC #### [facility] [address] [place] [address] Dr. Deepak Greenfield Monocytes/100 WBC (Bld) 9.7 % Normal 1.7-12.0 [facility] Comment on above: Performed By: #### C BC #### [facility] [address] [place] [address] Dr. Deepak Greenfield NEUT # 2.4 103/ul Normal 1.4-6.5 [facility] Comment on above: Performed By: #### C BC #### [facility] [address] [address] [address] Deepak Greenfield Neutrophils/100 WBC (Bld) 36.9 % Critically low 43.0-75.0 [facility] Comment on above: Performed By: #### C BC #### [facility] [address] [address] [address] Deepak Greenfield Platelet mean volume (Bld) [Entitic vol] 10.2 fL Normal 9.5-13.5 [facility] Comment on above: Performed By: #### C BC #### [facility] [address] [address] [address] Deepak Greenfiled PLT 248 103/ul Normal 150-450 [facility] Comment on above: Performed By: #### C BC #### [facility] [address] [place] [address] Dr. Deepak Greenfield RBC 3.82 106/ul Critically low 4.70-6.10 [facility] Comment on above: Performed By: #### C BC #### [facility] [address] [place] [address] Dr. Deepak Greenfield WBC 6.5 103/ul Normal 4.0-11.0 [facility] Comment on above: Performed By: #### C BC #### [facility] [address] [place] [address] Dr. Deepak Greenfield FERRITINon 04-22-2022 Ferritin [Mass/Vol] 152.0 ng/mL Normal 26.0-388.0 [facility] Comment on above: Performed By: #### M G, CMP #### [facility] [address] [place] [address] Dr. Deepak Greenfield IRONon 04-22-2022 Iron [Mass/Vol] 136.0 ug/dL Normal 65.0-175.0 [facility] Comment on above: Performed By: #### M G, CMP #### [facility] [address] [address] [address] Deepak Greenfield MAGNESIUMon 04-22-2022 Magnesium [Mass/Vol] 1.6 mg/dL Critically low 1.8-2.4 [facility] Comment on above: Performed By: #### I NFLUAB #### [facility] [address] [place] [address] Dr. Deepak Greenfield VITAMIN B12on 04-22-2022 Cobalamin (Vitamin B12) [Mass/Vol] 545.0 pg/mL Normal 193.0-986.0 [facility] Comment on above: Performed By: #### M G, CMP #### [facility] [address] [place] [address] Dr. Deepak Greenfield CBC AUTO DIFFon 03-19-2022 BASO # 0.0 103/ul Normal 0.0-0.1 [facility] Comment on above: Performed By: #### M G, CMP #### [facility] [address] [place] [address] Dr. Deepak Greenfield Basophils/100 WBC (Bld) 0.5 % Normal 0.2-2.0 [facility] Comment on above: Performed By: #### M G, CMP #### [facility] [address] [place] [address] Dr. Deepak Greenfield EO # 0.2 103/ul Normal 0.0-0.7 [facility] Comment on above: Performed By: #### M G, CMP #### [facility] [address] [place] [address] Dr. Deepak Greenfield Eosinophils/100 WBC (Bld) 2.0 % Normal 0.9-7.0 [facility] Comment on above: Performed By: #### M G, CMP #### [facility] [address] [place] [address] Dr. Deepak Greenfield Erythrocyte distribution width (RBC) [Ratio] 13.5 % Normal 11.0-15.0 [facility] Comment on above: Performed By: #### M G, CMP #### [facility] [address] [place] [address] Dr. Deepak Greenfield Hematocrit (Bld) [Volume fraction] 38.5 % Critically low 42.0-54.0 [facility] Comment on above: Performed By: #### M G, CMP #### [facility] [address] [address] [address] Deepak Greenfield Hemoglobin (Bld) [Mass/Vol] 12.6 g/dL Critically low 14.0-18.0 [facility] Comment on above: Performed By: #### M G, CMP #### [facility] [address] [address] [address] Deepak Greenfield IG # 0.02 10e3/ul Normal 0.00-0.03 [facility] Comment on above: Performed By: #### M G, CMP #### [facility] [address] [place] [address] Dr. Deepak Greenfield IG % 0.2 % Normal 0.0-0.5 [facility] Comment on above: Performed By: #### M G, CMP #### [facility] [address] [place] [address] Dr. Deepak Greenfield LYMPH # 3.1 103/ul Normal 1.2-3.8 [facility] Comment on above: Performed By: #### M G, CMP #### [facility] [address] [place] [address] Dr. Deepak Greenfield Lymphocytes/100 WBC (Bld) 36.2 % Normal 20.5-60.0 [facility] Comment on above: Performed By: #### M G, CMP #### [facility] [address] [place] [address] Dr. Deepak Greenfield MANUAL DIFF REQ NO Normal [facility] Comment on above: Performed By: #### M G, CMP #### [facility] [address] [place] [address] Dr. Deepak Greenfield MCH (RBC) [Entitic mass] 32.1 pg Normal 25.9-34.0 [facility] Comment on above: Performed By: #### M G, CMP #### [facility] [address] [place] [address] Dr. Deepak Greenfield MCHC (RBC) [Mass/Vol] 32.7 g/dL Normal 29.9-35.2 [facility] Comment on above: Performed By: #### M G, CMP #### [facility] [address] [address] [address] Deepak Greenfield MCV (RBC) [Entitic vol] 98.0 fL Critically high 80.0-94.0 [facility] Comment on above: Performed By: #### M G, CMP #### [facility] [address] [place] [address] Dr. Deepak Greenfield MONO # 0.9 103/ul Critically high 0.3-0.8 [facility] Comment on above: Performed By: #### M G, CMP #### [facility] [address] [place] [address] Dr. Deepak Greenfield Monocytes/100 WBC (Bld) 10.6 % Normal 1.7-12.0 [facility] Comment on above: Performed By: #### M G, CMP #### [facility] [address] [place] [address] Dr. Deepak Greenfield NEUT # 4.3 103/ul Normal 1.4-6.5 [facility] Comment on above: Performed By: #### M G, CMP #### [facility] [address] [place] [address] Dr. Deepak Greenfield Neutrophils/100 WBC (Bld) 50.5 % Normal 43.0-75.0 [facility] Comment on above: Performed By: #### M G, CMP #### [facility] [address] [place] [address] Dr. Deepak Greenfield Platelet mean volume (Bld) [Entitic vol] 9.9 fL Normal 9.5-13.5 [facility] Comment on above: Performed By: #### M G, CMP #### [facility] [address] [place] [address] Dr. Deepak Greenfield PLT 263 103/ul Normal 150-450 [facility] Comment on above: Performed By: #### M G, CMP #### [facility] [address] [place] [address] Dr. Deepak Greenfield RBC 3.93 106/ul Critically low 4.70-6.10 [facility] Comment on above: Performed By: #### M G, CMP #### [facility] [address] [place] [address] Dr. Deepak Greenfield WBC 8.6 103/ul Normal 4.0-11.0 [facility] Comment on above: Performed By: #### M G, CMP #### [facility] [address] [place] [address] Dr. Deepak Greenfield MAGNESIUMon 03-19-2022 Magnesium [Mass/Vol] 1.5 mg/dL Critically low 1.8-2.4 [facility] Comment on above: Performed By: #### M Lacy, CMP #### [facility] [address] [place] [address] Dr. Deepak Greenfield PROF 14(COMP METB)on 022 Albumin [Mass/Vol] 3.4 g/dL Normal 3.4-5.0 [facility] Comment on above: Performed By: #### Karishma House, CMP #### [facility] [address] [place] [address] Dr. Deepak Greenfield Albumin/Globulin [Mass ratio] 0.9 {ratio} Normal [facility] Comment on above: Performed By: #### Karishma House, CMP #### [facility] [address] [place] [address] Dr. Deepak Greenfield ALP [Catalytic activity/Vol] 47 U/L Normal 46-116 [facility] Comment on above: Performed By: #### Karishma House, CMP #### [facility] [address] [place] [address] Dr. Deepak Greenfield ALT [Catalytic activity/Vol] 48 U/L Normal 16-63 [facility] Comment on above: Performed By: #### M G, CMP #### [facility] [address] [place] [address] Dr. Deepak Greenfield Anion gap [Moles/Vol] 9.5 mmol/L Normal [facility] Comment on above: Performed By: #### M G, CMP #### [facility] [address] [place] [address] Dr. Deepak Greenfield AST [Catalytic activity/Vol] 30 U/L Normal 15-37 [facility] Comment on above: Performed By: #### M G, CMP #### [facility] [address] [place] [address] Dr. Deepak Greenfield Bilirubin [Mass/Vol] 0.2 mg/dL Normal 0.2-1.0 [facility] Comment on above: Performed By: #### M G, CMP #### [facility] [address] [place] [address] Dr. Deepak Greenfield Calcium [Mass/Vol] 8.7 mg/dL Normal 8.5-10.1 [facility] Comment on above: Performed By: #### M G, CMP #### [facility] [address] [place] [address] Dr. Deepak Greenfield Chloride [Moles/Vol] 105 mmol/L Normal 98-107 [facility] Comment on above: Performed By: #### M G, CMP #### [facility] [address] [place] [address] Dr. Deepak Greenfield CO2 [Moles/Vol] 32.6 mmol/L Critically high 21.0-32.0 [facility] Comment on above: Performed By: #### M G, CMP #### [facility] [address] [place] [address] Dr. Deepak Greenfield Creatinine [Mass/Vol] 0.70 mg/dL Normal 0.70-1.30 [facility] Comment on above: Performed By: #### Karishma G, CMP #### [facility] [address] [place] [address] Dr. Deepak Greenfield EGFR-AF CANADIAN >60 Normal >=60 [facility] Comment on above: Performed By: #### M G, CMP #### [facility] [address] [place] [address] Dr. Deepak Greenfield EGFR-NON AF CANADIAN >60 Normal >=60 [facility] Comment on above: Performed By: #### M G, CMP #### [facility] [address] [place] [address] Dr. Deepak Greenfield Globulin (S) [Mass/Vol] 3.8 g/dL Normal [facility] Comment on above: Performed By: #### M G, CMP #### [facility] [address] [address] [address] Deepak Greenfield Glucose [Mass/Vol] 98 mg/dL Normal 74-106 [facility] Comment on above: Performed By: #### M G, CMP #### [facility] [address] [place] [address] Dr. Deepak Greenfield Potassium [Moles/Vol] 4.1 mmol/L Normal 3.5-5.1 [facility] Comment on above: Performed By: #### M G, CMP #### [facility] [address] [place] [address] Dr. Deepak Greenfield Protein [Mass/Vol] 7.2 g/dL Normal 6.4-8.2 [facility] Comment on above: Performed By: #### M G, CMP #### [facility] [address] [place] [address] Dr. Deepak Greenfield Sodium [Moles/Vol] 143 mmol/L Normal 136-145 [facility] Comment on above: Performed By: #### M G, CMP #### [facility] [address] [place] [address] Dr. Deepak Greenfield Urea nitrogen [Mass/Vol] 10.0 mg/dL Normal 7.0-18.0 [facility] Comment on above: Performed By: #### M G, CMP #### [facility] [address] [place] [address] Dr. Deepak Greenfield Urea nitrogen/Creatinine [Mass ratio] 14.3 mg/mg Normal [facility] Comment on above: Performed By: #### M G, CMP #### [facility] [address] [place] [address] Dr. Deepak Greenfield VITAMIN D 25 OHon 03-19-2022 VIT D 25-OH 67.5 ng/mL Normal [facility] Comment on above: Performed By: #### M G, CMP #### [facility] [address] [place] [address] Dr. Deepak Greenfield VIT D RANGES SEE BELOW Normal [facility] Comment on above: Result Comment: <20 ng/mL Vit D deficient 20 - <30 ng/mL Vit D insufficient 30 - 100 ng/mL Vit D sufficient >100 ng/mL Potential Toxicity Performed By: #### M Lacy, CMP #### [facility] [address] [place] [address] Dr. Deepak Greenfield AMMONIAon 03-10-2022 Ammonia (P) [Moles/Vol] 36 umol/L Critically high [facility] Comment on above: Performed By: #### C BC #### [facility] [address] [place] [address] Dr. Deepak Greenfield DEPAKENE/ VALPROIC ACIDon DEPAKENE 93.5 ug/ml Normal 50.0-100.0 [facility] Comment on above: Performed By: #### B MP #### [facility] [address] [place] [address] Dr. Deepak Greenfield BNPon 01-24-2022 Natriuretic peptide B (Bld) [Mass/Vol] 183.0 pg/mL Normal <=450.0 [facility] Comment on above: Performed By: #### M Lacy, CMP #### [facility] [address] [place] [address] Dr. Deepak Greenfield CBC AUTO DIFFon 01-24-2022 BASO # 0.0 103/ul Normal 0.0-0.1 [facility] Comment on above: Performed By: #### C VDTBH #### [facility] [address] [place] [address] Dr. Deepak Greenfield Basophils/100 WBC (Bld) 0.3 % Normal 0.2-2.0 [facility] Comment on above: Performed By: #### C VDTBH #### [facility] [address] [place] [address] Dr. Deepak Greenfield EO # 0.1 103/ul Normal 0.0-0.7 [facility] Comment on above: Performed By: #### C VDTBH #### [facility] [address] [place] [address] Dr. Deepak Greenfield Eosinophils/100 WBC (Bld) 0.4 % Critically low 0.9-7.0 [facility] Comment on above: Performed By: #### C VDTBH #### [facility] [address] [place] [address] Dr. Deepak Greenfield Erythrocyte distribution width (RBC) [Ratio] 13.6 % Normal 11.0-15.0 [facility] Comment on above: Performed By: #### C VDTBH #### [facility] [address] [place] [address] Dr. Deepak Greenfield Hematocrit (Bld) [Volume fraction] 39.3 % Critically low 42.0-54.0 [facility] Comment on above: Performed By: #### C VDTBH #### [facility] [address] [place] [address] Dr. Deepak Greenfield Hemoglobin (Bld) [Mass/Vol] 12.6 g/dL Critically low 14.0-18.0 [facility] Comment on above: Performed By: #### C VDTBH #### [facility] [address] [place] [address] Dr. Deepak Greenfield IG # 0.04 10e3/ul Critically high 0.00-0.03 [facility] Comment on above: Performed By: #### C VDTBH #### [facility] [address] [place] [address] Dr. Deepak Greenfield IG % 0.3 % Normal 0.0-0.5 [facility] Comment on above: Performed By: #### C VDTBH #### [facility] [address] [place] [address] Dr. Deepak Greenfield LYMPH # 2.4 103/ul Normal 1.2-3.8 [facility] Comment on above: Performed By: #### C VDTBH #### [facility] [address] [place] [address] Dr. Deepak Greenfield Lymphocytes/100 WBC (Bld) 16.6 % Critically low 20.5-60.0 [facility] Comment on above: Performed By: #### C VDTBH #### [facility] [address] [place] [address] Dr. Deepak Greenfield MANUAL DIFF REQ NO Normal [facility] Comment on above: Performed By: #### C VDTBH #### [facility] [address] [place] [address] Dr. Deepak Greenfield MCH (RBC) [Entitic mass] 32.0 pg Normal 25.9-34.0 [facility] Comment on above: Performed By: #### C VDTBH #### [facility] [address] [place] [address] Dr. Deepak Greenfield MCHC (RBC) [Mass/Vol] 32.1 g/dL Normal 29.9-35.2 [facility] Comment on above: Performed By: #### C VDTBH #### [facility] [address] [place] [address] Dr. Deepak Greenfield MCV (RBC) [Entitic vol] 99.7 fL Critically high 80.0-94.0 [facility] Comment on above: Performed By: #### C VDTBH #### [facility] [address] [place] [address] Dr. Deepak Greenfield MONO # 1.4 103/ul Critically high 0.3-0.8 [facility] Comment on above: Performed By: #### C VDTBH #### [facility] [address] [place] [address] Dr. Deepak Greenfield Monocytes/100 WBC (Bld) 9.8 % Normal 1.7-12.0 [facility] Comment on above: Performed By: #### C VDTBH #### [facility] [address] [place] [address] Dr. Deepak Greenfield NEUT # 10.7 103/ul Critically high 1.4-6.5 [facility] Comment on above: Performed By: #### C VDTBH #### [facility] [address] [place] [address] Dr. Deepak Greenfield Neutrophils/100 WBC (Bld) 72.6 % Normal 43.0-75.0 [facility] Comment on above: Performed By: #### C VDTBH #### [facility] [address] [place] [address] Dr. Deepak Greenfield Platelet mean volume (Bld) [Entitic vol] 10.4 fL Normal 9.5-13.5 [facility] Comment on above: Performed By: #### C VDTBH #### [facility] [address] [place] [address] Dr. Deepak Greenfield PLT 280 103/ul Normal 150-450 [facility] Comment on above: Performed By: #### C VDTBH #### [facility] [address] [address] [address] Deepak Greenfield RBC 3.94 106/ul Critically low 4.70-6.10 [facility] Comment on above: Performed By: #### C VDTBH #### [facility] [address] [place] [address] Dr. Deepak Greenfield WBC 14.7 103/ul Critically high 4.0-11.0 [facility] Comment on above: Performed By: #### C VDTBH #### [facility] [id number] Deepak Greenfield CULTURE BLOODon 01-24-2022 Microscopic examination of blood, culture Culture Observations: No growth at 5 days. Normal [facility] Comment on above: Performed By: #### C BC #### [facility] [address] [place], [place] [id number] Dr. Deepak Greenfield Microscopic examination of blood, culture Culture Observations: No growth at 5 days. Normal [facility] Comment on above: Performed By: #### C BC #### [facility] [address] [place] [address] Dr. Deepak Greenfield Covid-19 PCR (CVDTB)on SARS-CoV-2 (COVID-19) RNA CINDY+probe Ql (Unsp spec) Not detected Normal NOT DETECTED [facility] Comment on above: Result Comment: When [...] for this test is supported by the [employer]ist of Health and Human Service's declaration that [...] used). Performed By: #### I NFLUAB #### [facility] [address] [place] [address] Dr. Deepak Greenfield LACTATE/LACTIC ACIDon 2021 Lactate [Moles/Vol] 1.7 mmol/L Normal 0.4-1.9 [facility] Comment on above: Performed By: #### M G, CMP #### [facility] [address] [place] [address] Dr. Deepak Greenfield PROF 14(COMP METB)on 022 Albumin [Mass/Vol] 3.2 g/dL Critically low 3.4-5.0 [facility] Comment on above: Performed By: #### M G, CMP #### [facility] [address] [place] [address] Dr. Deepak Greenfield Albumin/Globulin [Mass ratio] 0.7 {ratio} Normal [facility] Comment on above: Performed By: #### M G, CMP #### [facility] [address] [place] [address] Dr. Deepak Greenfield ALP [Catalytic activity/Vol] 49 U/L Normal 46-116 [facility] Comment on above: Performed By: #### M G, CMP #### [facility] [address] [place] [address] Dr. Deepak Greenfield ALT [Catalytic activity/Vol] 41 U/L Normal 16-63 [facility] Comment on above: Performed By: #### M G, CMP #### [facility] [address] [address] [address] Deepak Greenfield Anion gap [Moles/Vol] 11.1 mmol/L Normal [facility] Comment on above: Performed By: #### M G, CMP #### [facility] [address] [address] [address] Deepak Greenfield AST [Catalytic activity/Vol] 29 U/L Normal 15-37 [facility] Comment on above: Performed By: #### M G, CMP #### [facility] [address] [address] [address] Deepak Greenfield Bilirubin [Mass/Vol] 0.5 mg/dL Normal 0.2-1.0 [facility] Comment on above: Performed By: #### M G, CMP #### [facility] [address] [address] [address] Deepak Greenfield Calcium [Mass/Vol] 9.1 mg/dL Normal 8.5-10.1 [facility] Comment on above: Performed By: #### M G, CMP #### [facility] [address] [address] [address] Deepak Greenfield Chloride [Moles/Vol] 108 mmol/L Critically high 98-107 [facility] Comment on above: Performed By: #### M G, CMP #### [facility] [address] [address] [address] Deepak Greenfield CO2 [Moles/Vol] 25.7 mmol/L Normal 21.0-32.0 [facility] Comment on above: Performed By: #### M G, CMP #### [facility] [address] [address] [address] Deepak Greenfield Creatinine [Mass/Vol] 0.89 mg/dL Normal 0.70-1.30 [facility] Comment on above: Performed By: #### M G, CMP #### [facility] [address] [address] [address] Deepak Greenfield EGFR-AF CANADIAN >60 Normal >=60 [facility] Comment on above: Performed By: #### M G, CMP #### [facility] [address] [address] [address] Deepak Greenfield EGFR-NON AF CANADIAN >60 Normal >=60 [facility] Comment on above: Performed By: #### M G, CMP #### [facility] [address] [address] [address] Deepak Greenfield Globulin (S) [Mass/Vol] 4.5 g/dL Normal [facility] Comment on above: Performed By: #### M G, CMP #### [facility] [address] [address] [address] Deepak Greenfield Glucose [Mass/Vol] 178 mg/dL Critically high 74-[address] [facility] Comment on above: Performed By: #### M G, CMP #### [facility] [address] [place] [address] Dr. Deepak Greenfield Potassium [Moles/Vol] 3.8 mmol/L Normal 3.5-5.1 [facility] Comment on above: Performed By: #### M G, CMP #### [facility] [address] [place] [address] Dr. Deepak Greenfield Protein [Mass/Vol] 7.7 g/dL Normal 6.4-8.2 [facility] Comment on above: Performed By: #### M G, CMP #### [facility] [address] [place] [address] Dr. Deepak Greenfield Sodium [Moles/Vol] 141 mmol/L Normal 136-145 [facility] Comment on above: Performed By: #### M G, CMP #### [facility] [address] [place] [address] Dr. Deepak Greenfield Urea nitrogen [Mass/Vol] 16.0 mg/dL Normal 7.0-18.0 [facility] Comment on above: Performed By: #### M G, CMP #### [facility] [address] [address] [address] Deepak Greenfield Urea nitrogen/Creatinine [Mass ratio] 18.0 mg/mg Normal [facility] Comment on above: Performed By: #### M G, CMP #### [facility] [address] [address] [address] Deepak Greenfield TROPONIN, HIGH SENSITIVITYon 01-24-2022 HSTROP 6.4 pg/mL Normal 4.0-76.1 [facility] Comment on above: Result Comment: CUT- OFF POINTS HAVE BEEN ESTABLISHED BASED ON THE FOURTH UNIVERSAL DEFINITIONS OF MYOCARDIAL INFARCTION. THE UPPER REFERENCE LIMIT (URL) OF TROPONIN, DEFINED THE 99TH PERCENTILE OF cTnI DISTRIBUTION IN A REFERENCE POPULATION, HAS BEEN CONFIRMED THE DECISION THRESHOLD FOR [place] DIAGNOSIS. Performed By: #### M G, CMP #### [facility] [address] [place] [address] Dr. Deepak Greenfield XR CHEST 1 Von [...] ANICETO CROCKER Date: 2022-01-24 15:28 Normal [facility] UA RANDOM W/MICROSCOPICon BACTERIA NONE SEEN Normal NONE SEEN [facility] Comment on above: Performed By: #### C VDTBH #### [facility] [address] [place] [address] Dr. Deepak Greenfield Bilirubin Ql (U) Negative Normal NEGATIVE [facility] Comment on above: Performed By: #### C VDTBH #### [facility] [address] [place] [address] Dr. Deepak Greenfield CAST NONE SEEN Normal NONE SEEN [facility] Comment on above: Performed By: #### C VDTBH #### [facility] [address] [place] [address] Dr. Deepak Greenfield Clarity (U) CLEAR Normal CLEAR [facility] Comment on above: Performed By: #### C VDTBH #### [facility] [address] [place] [address] Dr. Deepak Greenfield Color (U) YELLOW Normal YELLOW [facility] Comment on above: Performed By: #### C VDTBH #### [facility] [address] [place] [address] Dr. Deepak Greenfield Crystals LM Nom (Urine sed) NONE SEEN Normal NONE SEEN [facility] Comment on above: Performed By: #### C VDTBH #### [facility] [address] [place] [address] Dr. Deepak Greenfield Epithelial cells LM Ql (Urine sed) RARE Normal NONE SEEN /RARE [facility] Comment on above: Performed By: #### C VDTBH #### [facility] [address] [place] [address] Dr. Deepak Greenfield Glucose Ql (U) Negative Normal NEGATIVE [facility] Comment on above: Performed By: #### C VDTBH #### [facility] [address] [place] [address] Dr. Deepak Greenfield Hemoglobin Ql (U) Negative Normal NEGATIVE [facility] Comment on above: Performed By: #### C VDTBH #### [facility] [address] [place] [address] Dr. Deepak Greenfield Ketones Ql (U) 15 mg/dl Abnormal NEGATIVE [facility] Comment on above: Performed By: #### C VDTBH #### [facility] [address] [place] [address] Dr. Deepak Greenfield LEUKOCYTES Negative Normal NEGATIVE [facility] Comment on above: Performed By: #### C VDTBH #### [facility] [address] [place] [address] Dr. Deepak Greenfield MUCOUS NONE SEEN Normal NONE SEEN [facility] Comment on above: Performed By: #### C VDTBH #### [facility] [address] [place] [address] Dr. Deepak Greenfield Nitrite Ql (U) Negative Normal NEGATIVE [facility] Comment on above: Performed By: #### C VDTBH #### [facility] [address] [place] [address] Dr. Deepak Greenfield pH (U) 6.0 [pH] Normal 5-9 [facility] Comment on above: Performed By: #### C VDTBH #### [facility] [address] [place] [address] Dr. Deepak Greenfield RBC 0-2 Normal 0-2 [facility] Comment on above: Performed By: #### C VDTBH #### [facility] [address] [place] [address] Dr. Deepak Greenfield SPEC GRAVITY 1.020 Normal 1.005-<=1.025 [facility] Comment on above: Performed By: #### C VDTBH #### [facility] [address] [place] [address] Dr. Deepak Greenfield UA PROTEIN Negative Normal NEGATIVE/ TRACE [facility] Comment on above: Performed By: #### C VDTBH #### [facility] [address] [place] [address] Dr. Deepak Greenfield Urobilinogen Qn (U) 0.2 {Ottoniel'U}/dL Normal 0.2 - 1. 0 [facility] Comment on above: Performed By: #### C VDTBH #### [facility] [address] [place] [address] Dr. Deepak Greenfield WBC NONE SEEN Normal NONE SEEN [facility] Comment on above: Performed By: #### C VDTBH #### [facility] [address] [place] [address] Dr. Deepak Greenfield ALBUMINon 01-12-2022 Albumin [Mass/Vol] 3.4 g/dL Normal 3.4-5.0 [facility] Comment on above: Performed By: #### C VDTBH #### [facility] [address] [place] [address] Dr. Deepak Greenfield ALKALINE PHOSPHAon ALP [Catalytic activity/Vol] 46 U/L Normal 46-116 [facility] Comment on above: Performed By: #### C VDTBH #### [facility] [address] [place] [address] Dr. Deepak Greenfield AMMONIAon 01-12-2022 Ammonia (P) [Moles/Vol] 93 umol/L Critically high 11-32 [facility] Comment on above: Performed By: #### I NFLUAB #### [facility] [address] [place] [address] Dr. Deepak Greenfield BILIRUBIN CONJUGATED (DIRECT )on 01-12-2022 BILI, CONJUGATED 0.1 mg/dL Normal 0.0-0.2 [facility] Comment on above: Performed By: #### C VDTBH #### [facility] [address] [place] [address] Dr. Deepak Greenfield BILIRUBIN TOTALon 01-12-2022 Bilirubin [Mass/Vol] 0.4 mg/dL Normal 0.2-1.0 [facility] Comment on above: Performed By: #### C VDTBH #### [facility] [address] [place] [address] Dr. Deepak Greenfield CBC AUTO DIFFon 01-12-2022 BASO # 0.0 103/ul Normal 0.0-0.1 [facility] Comment on above: Performed By: #### M G, CMP #### [facility] [address] [place] [address] Dr. Deepak Greenfield Basophils/100 WBC (Bld) 0.3 % Normal 0.2-2.0 [facility] Comment on above: Performed By: #### M G, CMP #### [facility] [address] [place] [address] Dr. Deepak Greenfield EO # 0.1 103/ul Normal 0.0-0.7 [facility] Comment on above: Performed By: #### M G, CMP #### [facility] [address] [place] [address] Dr. Deepak Greenfield Eosinophils/100 WBC (Bld) 1.3 % Normal 0.9-7.0 [facility] Comment on above: Performed By: #### M G, CMP #### [facility] [address] [place] [address] Dr. Deepak Greenfield Erythrocyte distribution width (RBC) [Ratio] 14.2 % Normal 11.0-15.0 [facility] Comment on above: Performed By: #### M G, CMP #### [facility] [address] [place] [address] Dr. Deepak Greenfield Hematocrit (Bld) [Volume fraction] 40.4 % Critically low 42.0-54.0 [facility] Comment on above: Performed By: #### M G, CMP #### [facility] [address] [place] [address] Dr. Deepak Greenfield Hemoglobin (Bld) [Mass/Vol] 13.1 g/dL Critically low 14.0-18.0 [facility] Comment on above: Performed By: #### M G, CMP #### [facility] [address] [place] [address] Dr. Deepak Greenfield IG # 0.01 10e3/ul Normal 0.00-0.03 [facility] Comment on above: Performed By: #### M G, CMP #### [facility] [address] [place] [address] Dr. Deepak Greenfield IG % 0.1 % Normal 0.0-0.5 [facility] Comment on above: Performed By: #### M G, CMP #### [facility] [address] [place] [address] Dr. Deepak Greenfield LYMPH # 3.3 103/ul Normal 1.2-3.8 [facility] Comment on above: Performed By: #### M G, CMP #### [facility] [address] [place] [address] Dr. Deepak Greenfield Lymphocytes/100 WBC (Bld) 42.3 % Normal 20.5-60.0 [facility] Comment on above: Performed By: #### M G, CMP #### [facility] [address] [place] [address] Dr. Deepak Greenfield MANUAL DIFF REQ NO Normal [facility] Comment on above: Performed By: #### M G, CMP #### [facility] [address] [place] [address] Dr. Deepak Greenfield MCH (RBC) [Entitic mass] 32.4 pg Normal 25.9-34.0 [facility] Comment on above: Performed By: #### M G, CMP #### [facility] [address] [place] [address] Dr. Deepak Greenfield MCHC (RBC) [Mass/Vol] 32.4 g/dL Normal 29.9-35.2 [facility] Comment on above: Performed By: #### M G, CMP #### [facility] [address] [address] [address] Deepak Greenfield MCV (RBC) [Entitic vol] 100.0 fL Critically high 80.0-94.0 [facility] Comment on above: Performed By: #### M G, CMP #### [facility] [address] [address] [address] Deepak Greenfield MONO # 0.6 103/ul Normal 0.3-0.8 [facility] Comment on above: Performed By: #### M G, CMP #### [facility] [address] [place] [address] Dr. Deepak Greenfield Monocytes/100 WBC (Bld) 7.6 % Normal 1.7-12.0 [facility] Comment on above: Performed By: #### M G, CMP #### [facility] [address] [place] [address] Dr. Deepak Greenfield NEUT # 3.8 103/ul Normal 1.4-6.5 [facility] Comment on above: Performed By: #### M G, CMP #### [facility] [address] [place] [address] Dr. Deepak Greenfield Neutrophils/100 WBC (Bld) 48.4 % Normal 43.0-75.0 [facility] Comment on above: Performed By: #### M G, CMP #### [facility] [address] [place] [address] Dr. Deepak Greenfield Platelet mean volume (Bld) [Entitic vol] 9.6 fL Normal 9.5-13.5 [facility] Comment on above: Performed By: #### M G, CMP #### [facility] [address] [place] [address] Dr. Deepak Greenfield PLT 315 103/ul Normal 150-450 [facility] Comment on above: Performed By: #### M G, CMP #### [facility] [address] [address] [address] Deepak Greenfield RBC 4.04 106/ul Critically low 4.70-6.10 [facility] Comment on above: Performed By: #### M G, CMP #### [facility] [address] [address] [address] Deepak Greenfield WBC 7.9 103/ul Normal 4.0-11.0 [facility] Comment on above: Performed By: #### M G, CMP #### [facility] [address] [place] [address] Dr. Deepak Greenfield DEPAKENE/VALPROICon 01-13-20 DEPAKENE 89.7 ug/ml Normal 50.0-100.0 [facility] Comment on above: Performed By: #### I NFLUAB #### [facility] [address] [place] [address] Dr. Deepak Greenfield PROF CHEM 8 (BAS METB)on Anion gap [Moles/Vol] 12.9 mmol/L Normal [facility] Comment on above: Performed By: #### I NFLUAB #### [facility] [address] [address] [address] Deepak Greenfield Calcium [Mass/Vol] 8.8 mg/dL Normal 8.5-10.1 [facility] Comment on above: Performed By: #### I NFLUAB #### [facility] [address] [place] [address] Dr. Deepak Greenfield Chloride [Moles/Vol] 103 mmol/L Normal 98-107 [facility] Comment on above: Performed By: #### I NFLUAB #### [facility] [address] [place] [address] Dr. Deepak Greenfield CO2 [Moles/Vol] 28.1 mmol/L Normal 21.0-32.0 [facility] Comment on above: Performed By: #### I NFLUAB #### [facility] [address] [address] [address] Deepak Greenfield Creatinine [Mass/Vol] 0.58 mg/dL Critically low 0.70-1.30 [facility] Comment on above: Performed By: #### I NFLUAB #### [facility] [address] [address] [address] Deepak Greenfield EGFR-AF CANADIAN >60 Normal >=60 [facility] Comment on above: Performed By: #### I NFLUAB #### [facility] [address] [address] [address] Deepak Greenfield EGFR-NON AF CANADIAN >60 Normal >=60 [facility] Comment on above: Performed By: #### I NFLUAB #### [facility] [address] [address] [address] Deepak Greenfield Glucose [Mass/Vol] 117 mg/dL Critically high 74-106 [facility] Comment on above: Performed By: #### I NFLUAB #### [facility] [address] [place] [address] Dr. Deepak Greenfield Potassium [Moles/Vol] 4.0 mmol/L Normal 3.5-5.1 [facility] Comment on above: Performed By: #### I NFLUAB #### [facility] [address] [address] [address] Deepak Greenfield Sodium [Moles/Vol] 140 mmol/L Normal 136-145 [facility] Comment on above: Performed By: #### I NFLUAB #### [facility] [address] [address] [address] Deepak Greenfield Urea nitrogen [Mass/Vol] 7.0 mg/dL Normal 7.0-18.0 [facility] Comment on above: Performed By: #### I NFLUAB #### [facility] [address] [address] [address] Deepak Greenfield Urea nitrogen/Creatinine [Mass ratio] 12.1 mg/mg Normal [facility] Comment on above: Performed By: #### I NFLUAB #### [facility] [address] [address] [address] Deepak Greenfield SGOTon 01-12-2022 AST [Catalytic activity/Vol] 31 U/L Normal 15-37 [facility] Comment on above: Performed By: #### C VDTBH #### [facility] [address] [address] [address] Deepak Greenfield SGPTon 01-12-2022 ALT [Catalytic activity/Vol] 48 U/L Normal 16-63 [facility] Comment on above: Performed By: #### C VDTBH #### [facility] [id number] Deepak Greenfield T PROTEIN SERUMon 01-12-2022 Protein [Mass/Vol] 7.3 g/dL Normal 6.4-8.2 [facility] Comment on above: Performed By: #### B MP #### [facility] [address] [place] [address] Dr. Deepak Greenfield XR CHEST 2 Von [...] by: ANICETO CROCKER Date: 2022-01-06 16:15 Normal [facility] Progress Noteson 12-16-2021 Director Digital Marketing Authentication Interface Message Text ----- Thursday, December 16, 2021 at 12:03:50 PM ----- ----- Provider: Shanel Powell Hygienist -- Clinic: [place] ----- [facility], Pt is ready for tx. Pt presented for dental evaluation for future OR. Caregiver in the room. Patient is non-verbal. Severe intellectual disability, seizure disorder Caregiver stated patient is not pain and no complaining. Radiograph taken today: no possible due to patient behavior Case requested for OR. Guardian mother Katia Lopez. [phone]. [facility] [id number] EXT [id number] ( [facility] pt's appt) AVS printed and handed flyer for step by step instruction of OR process to Caregiver exam By: Elliott Ham [facility]. OR ----- Signed on Thursday, December 16, 2021 at 12:18:18 PM ----- ----- Provider: [id number] - Ap Adams DDS -- Clinic: [place] ----- Normal [facility] [email or web address] [facility] XR DEXA BONE DENSITYon 11-20 XR [...] by: MARGARITO DAVIES Date: 2021-11-20 11:42 Normal [facility] US SCROTUMon 11-14-2021 US SCROTUM EXAMINATION: US [...] KRISTIAN BILLINGS Date: 2021-11-14 07:10 Normal [facility] AMMONIAon 10-31-2021 Ammonia (P) [Moles/Vol] 88 umol/L Critically high [facility] Comment on above: Performed By: #### M G, CMP #### [facility] [address] [place] [address] Dr. Deepak Greenfield AMMONIAon 10-30-2021 Ammonia (P) [Moles/Vol] 103 umol/L Critically high [facility] Comment on above: Result Comment: SPEC IMEN SLIGHTLY HEMOLYZED MAY AFFECT AMM RESULT Performed By: #### I NFLUAB #### [facility] [address] [place] [address] Dr. Deepak Greenfield WOUND CULTUREon 10-23-2021 Bacteria identified Aer cx Nom (Unsp spec) Final report Normal [facility] Comment on above: Performed By: #### C XWND #### [facility] [address] [place] [address] Dr. Deepak Greenfield Result 1 Comment Normal [facility] Comment on above: Result Comment: No g rowth in 36 - 48 hours. Performed By: #### C XWND #### [facility] [address] [place] [address] Dr. Deepak Greenfield WOUND CULTUREon 10-02-2021 Bacteria identified Aer cx Nom (Unsp spec) Final report Normal [facility] Comment on above: Performed By: #### A MM #### [facility] [address] [place] [address] Dr. Deepak Greenfield Result 1 Mixed skin omid Normal [facility] Comment on above: Performed By: #### A MM #### [facility] [address] [place] [address] Dr. Deepak Greenfield AMYLASEon 09-22-2021 Amylase [Catalytic activity/Vol] 24 U/L Critically low 25-115 [facility] Comment on above: Performed By: #### C BC #### [facility] [address] [place] [address] Dr. Deepak Greenfield CBC AUTO DIFFon 09-22-2021 BASO # 0.0 103/ul Normal 0.0-0.1 [facility] Comment on above: Performed By: #### C VDTBH #### [facility] [address] [place] [address] Dr. Deepka Greenfield Basophils/100 WBC (Bld) 0.5 % Normal 0.2-2.0 [facility] Comment on above: Performed By: #### C VDTBH #### [facility] [address] [place] [address] Dr. Deepak Greenfield EO # 0.1 103/ul Normal 0.0-0.7 [facility] Comment on above: Performed By: #### C VDTBH #### [facility] [address] [place] [address] Dr. Deepak Greenfield Eosinophils/100 WBC (Bld) 1.3 % Normal 0.9-7.0 [facility] Comment on above: Performed By: #### C VDTBH #### [facility] [address] [place] [address] Dr. Deepak Greenfield Erythrocyte distribution width (RBC) [Ratio] 13.9 % Normal 11.0-15.0 [facility] Comment on above: Performed By: #### C VDTBH #### [facility] [address] [place] [address] Dr. Deepak Greenfield Hematocrit (Bld) [Volume fraction] 40.0 % Critically low 42.0-54.0 [facility] Comment on above: Performed By: #### C VDTBH #### [facility] [address] [place] [address] Dr. Deepak Greenfield Hemoglobin (Bld) [Mass/Vol] 13.0 g/dL Critically low 14.0-18.0 [facility] Comment on above: Performed By: #### C VDTBH #### [facility] [address] [place] [address] Dr. Deepak Greenfield IG # 0.01 10e3/ul Normal 0.00-0.03 [facility] Comment on above: Performed By: #### C VDTBH #### [facility] [address] [place] [address] Dr. Deepak Greenfield IG % 0.2 % Normal 0.0-0.5 [facility] Comment on above: Performed By: #### C VDTBH #### [facility] [address] [place] [address] Dr. Deepak Greenfield LYMPH # 3.0 103/ul Normal 1.2-3.8 [facility] Comment on above: Performed By: #### C VDTBH #### [facility] [address] [place] [address] Dr. Deepak Greenfield Lymphocytes/100 WBC (Bld) 47.9 % Normal 20.5-60.0 [facility] Comment on above: Performed By: #### C VDTBH #### [facility] [address] [place] [address] Dr. Deepak Greenfield MANUAL DIFF REQ NO Normal [facility] Comment on above: Performed By: #### C VDTBH #### [facility] [address] [place] [address] Dr. Deepak Greenfield MCH (RBC) [Entitic mass] 32.9 pg Normal 25.9-34.0 [facility] Comment on above: Performed By: #### C VDTBH #### [facility] [address] [place] [address] Dr. Deepak Greenfield MCHC (RBC) [Mass/Vol] 32.5 g/dL Normal 29.9-35.2 [facility] Comment on above: Performed By: #### C VDTBH #### [facility] [address] [place] [address] Dr. Deepak Greenfield MCV (RBC) [Entitic vol] 101.3 fL Critically high 80.0-94.0 [facility] Comment on above: Performed By: #### C VDTBH #### [facility] [address] [address] [address] Deepak Greenfield MONO # 0.7 103/ul Normal 0.3-0.8 [facility] Comment on above: Performed By: #### C VDTBH #### [facility] [address] [place] [address] Dr. Deepak Greenfield Monocytes/100 WBC (Bld) 10.3 % Normal 1.7-12.0 [facility] Comment on above: Performed By: #### C VDTBH #### [facility] [address] [place] [address] Dr. Deepak Greenfield NEUT # 2.5 103/ul Normal 1.4-6.5 [facility] Comment on above: Performed By: #### C VDTBH #### [facility] [address] [place] [address] Dr. Deepak Greenfield Neutrophils/100 WBC (Bld) 39.8 % Critically low 43.0-75.0 [facility] Comment on above: Performed By: #### C VDTBH #### [facility] [address] [place] [address] Dr. Deepak Greenfield Platelet mean volume (Bld) [Entitic vol] 10.1 fL Normal 9.5-13.5 [facility] Comment on above: Performed By: #### C VDTBH #### [facility] [address] [place] [address] Dr. Deepak Greenfield PLT 311 103/ul Normal 150-450 [facility] Comment on above: Performed By: #### C VDTBH #### [facility] [address] [place] [address] Dr. Deepak Greenfield RBC 3.95 106/ul Critically low 4.70-6.10 [facility] Comment on above: Performed By: #### C VDTBH #### [facility] [address] [place] [address] Dr. Deepak Greenfield WBC 6.3 103/ul Normal 4.0-11.0 [facility] Comment on above: Performed By: #### C VDTBH #### [facility] [id number] Deepak Greenfield CT ABD/PELV W CONon 09-23-[address] ABD/PELV W CON CT ABD/PELV W [...] JAMIE ALICIA Date: 2021-09-22 02:34 Normal [facility] CT HEAD WO CONon 09-22-2021 CT [...] by: BRITTON FONTENOT Date: 2021-09-22 01:13 Normal [facility] LIPASEon 09-22-2021 Lipase [Catalytic activity/Vol] 28.0 U/L Critically low 73.0-393.0 [facility] Comment on above: Performed By: #### C BC #### [facility] [address] [place] [address] Dr. Deepak Greenfield PROF 14(COMP METB)on 022 Albumin [Mass/Vol] 3.3 g/dL Critically low 3.4-5.0 [facility] Comment on above: Performed By: #### B MP #### [facility] [address] [place] [address] Dr. Deepak Greenfield Albumin/Globulin [Mass ratio] 0.9 {ratio} Normal [facility] Comment on above: Performed By: #### B MP #### [facility] [address] [place] [address] Dr. Deepak Greenfield ALP [Catalytic activity/Vol] 38 U/L Critically low 46-116 [facility] Comment on above: Performed By: #### B MP #### [facility] [address] [place] [address] Dr. Deepak Greenfield ALT [Catalytic activity/Vol] 91 U/L Critically high 16-63 [facility] Comment on above: Performed By: #### B MP #### [facility] [address] [place] [address] Dr. Deepak Greenfield Anion gap [Moles/Vol] 10.2 mmol/L Normal [facility] Comment on above: Performed By: #### B MP #### [facility] [address] [address] [address] Deepak Greenfield AST [Catalytic activity/Vol] 50 U/L Critically high 15-37 [facility] Comment on above: Performed By: #### B MP #### [facility] [address] [address] [address] Deepak Greenfield Bilirubin [Mass/Vol] 0.3 mg/dL Normal 0.2-1.0 [facility] Comment on above: Performed By: #### B MP #### [facility] [address] [address] [address] Deepak Greenfield Calcium [Mass/Vol] 8.6 mg/dL Normal 8.5-10.1 [facility] Comment on above: Performed By: #### B MP #### [facility] [address] [address] [address] Deepak Greenfield Chloride [Moles/Vol] 106 mmol/L Normal 98-107 [facility] Comment on above: Performed By: #### B MP #### [facility] [address] [address] [address] Deepak Greenfield CO2 [Moles/Vol] 29.9 mmol/L Normal 21.0-32.0 [facility] Comment on above: Performed By: #### B MP #### [facility] [address] [address] [address] Deepak [place] Creatinine [Mass/Vol] 0.65 mg/dL Critically low 0.70-1.30 [facility] Comment on above: Performed By: #### B MP #### [facility] [address] [address] [address] Deepak [place] EGFR-AF CANADIAN >60 Normal >=60 [facility] Comment on above: Performed By: #### B MP #### [facility] [address] [address] [address] Deepak [place] EGFR-NON AF CANADIAN >60 Normal >=60 [facility] Comment on above: Performed By: #### B MP #### [facility] [address] [address] [address] Deepak [place] Globulin (S) [Mass/Vol] 3.7 g/dL Normal [facility] Comment on above: Performed By: #### B MP #### [facility] [address] [address] [address] Deepak [place] Glucose [Mass/Vol] 105 mg/dL Normal 74-106 [facility] Comment on above: Performed By: #### B MP #### [facility] [address] [address] [address] Deepak [place] Potassium [Moles/Vol] 4.1 mmol/L Normal 3.5-5.1 [facility] Comment on above: Performed By: #### B MP #### [facility] [address] [place] [address] Dr. Deepak [place] Protein [Mass/Vol] 7.0 g/dL Normal 6.4-8.2 [facility] Comment on above: Performed By: #### B MP #### [facility] [address] [place] [address] Dr. Deepak [place] Sodium [Moles/Vol] 142 mmol/L Normal 136-145 [facility] Comment on above: Performed By: #### B MP #### [facility] [address] [place] [address] Dr. Deepak [place] Urea nitrogen [Mass/Vol] 13.0 mg/dL Normal 7.0-18.0 [facility] Comment on above: Performed By: #### B MP #### [facility] [address] [address] [address] Deepak [place] Urea nitrogen/Creatinine [Mass ratio] 20.0 mg/mg Normal [facility] Comment on above: Performed By: #### B MP #### [facility] [address] [place], [place] [id number] Dr. Deepak [place] Vital Signs Date Time Vital Sign Value Performing Clinician Facility 12-16-2022 10:18-0400 Blood Pressure Location Cricket Levine [facility] 12-16-2022 10:18-0400 Body temperature 98.06 [degF] Crickte Lue [facility] 12-16-2022 10:18-0400 Diastolic blood pressure 78 mm[Hg] Cricket Lue [facility] 12-16-2022 10:18-0400 Heart rate 84 /min Cricket Lue [facility] 12-16-2022 10:18-0400 Systolic blood pressure 128 mm[Hg] Cricket Lue [facility] 12-23-2021 11:30-0400 Body height 157.48 cm Antionette Leoenl Other [facility] Other 12-23-2021 11:30-0400 Body mass index (BMI) [Ratio] 25.79 kg/m2 Antionette Leonel Other [employer] Other 12-23-2021 11:30-0400 Body temperature 98.5 [degF] Antionette Leonel Other [employer] Other 12-23-2021 11:30-0400 Body weight 63.96 kg Antionette Leonel Other [employer] Other 12-23-2021 11:30-0400 Diastolic blood pressure 70 mm[Hg] Antionette Leonel Other [employer] Other 12-23-2021 11:30-0400 Respiratory rate 20 /min Antionette Leonel Other [employer] Other 12-23-2021 11:30-0400 SaO2% (BldA) [Mass fraction] 99 % Antionette Leonel Other [employer] Other 12-23-2021 11:30-0400 Systolic blood pressure 120 mm[Hg] Antionette Leonel Other [employer] Other 10-22-2021 10:29-0400 Blood Pressure Location Cricket Lue [facility] 10-22-2021 10:29-0400 Diastolic blood pressure 92 mm[Hg] Cricket Lue [facility] 10-22-2021 10:29-0400 Heart rate 100 /min Cricket Lue [facility] 10-22-2021 10:29-0400 Respiratory rate 16 /min Cricket Lue [facility] Call Britannia 10-22-2021 10:29-0400 Systolic blood pressure 137 mm[Hg] Cricket Lue [facility] Encounters Encounter Date Encounter Type Care Provider Facility Start: 07-06-2023 End: 07-06-2023 ambulatory [facility] Work Phone: Start: 07-06-2023 End: 07-06-2023 Patient encounter procedure [facility] Work Phone: Start: 01-05-2023 End: 01-05-2023 ambulatory Antionette Leonel Other [employer] Other Start: 01-05-2023 Office outpatient visit 25 minutes Antionette Leonel [facility] Start: 12-16-2022 End: 12-17-2022 ambulatory Cricket Levine Facility:[facility] Start: 12-16-2022 End: 12-16-2022 Patient encounter procedure Cricket Levine [facility] Start: 08-04-2022 End: 08-04-[address] FAM VENTURA Facility:[facility] Start: 07-29-2022 End: 08-02-2022 Evaluation and management of inpatient DR FAM VENTURA Facility:[facility] Start: 07-26-2022 End: 07-27-[address] FAM VENTURA Facility:[facility] Start: 07-23-2022 End: 07-24-2022 ambulatory FAM VENTURA Facility:[facility] Start: 07-23-2022 End: 07-23-2022 Patient encounter procedure FAM VENTURA [facility] Start: 06-23-2022 End: 06-23-2022 ambulatory Antionette Leonel Other [employer] Other Start: 06-23-2022 Office outpatient visit 25 minutes Antionette Leonel [facility] Start: 06-03-2022 End: 06-04-[address] FAM VENTURA Facility:[facility] Start: 05-08-2022 Letter encounter Abundio Mares DDS Work Phone: [facility] Start: 04-22-2022 End: 04-23-[address] FAM VENTURA Facility:[facility] Start: 03-19-2022 End: 03-20-[address] FAM VENTURA Facility:[facility] Start: 03-10-2022 End: 03-11-[address] FAM VENTURA Facility:[facility] Start: 01-24-2022 End: 01-24-[address] DIAMOND Duenas Facility:[facility] Start: 01-18-2022 End: 01-18-2022 ambulatory ANJELICA SHARMILA . Facility:[facility] Start: 01-13-[address] [facility] Start: 01-12-2022 End: 01-13-[address] RODRIGUEZ VANG Facility:[facility] Start: 01-06-2022 End: 01-07-[address] FAM VENTURA Facility:[facility] Start: 12-23-2021 End: 12-23-2021 ambulatory Antionette Leonel Other [employer] Other Start: 12-23-2021 Office outpatient visit 25 minutes Antionette Leonel [facility] Start: 12-16-2021 End: 12-17-2021 ambulatory UNKNOWN PROVIDER Facility:[facility] Start: 12-16-2021 End: 12-17-2021 Patient encounter procedure Mora Powell [facility] Work Phone: [facility] Start: 12-10-2021 End: 12-10-2021 Patient encounter procedure Cricket Levine [facility] Start: 11-20-2021 End: 11-21-[address] FAM VENTURA Facility:[facility] Start: 11-13-2021 End: 11-14-2021 ambulatory CRICKET Duenas Facility:[facility] Start: 10-31-2021 End: 11-01-[address] FAM VENTURA Facility:[facility] Start: 10-22-2021 End: 10-22-2021 Patient encounter procedure Cricket Levine [facility] Start: 10-21-2021 End: 10-21-[address] FAM VENTURA Facility:[facility] Start: 09-29-2021 End: 09-29-[address] FAM VENTURA Facility:[facility] Start: 09-22-2021 End: 09-22-2021 ambulatory ABBI SANCHEZ Facility:[facility] Plan of Treatment Date Care Activity Detail Author Start: 02-01-2030 Shingles (RZV) Vacci ne (1 of 2) Shingles (RZV) Vaccine (1 of 2) [facility] Start: 01-17-2022 Influenza vaccination Influenza Vacc ine (#1) [facility] Start: 02-01-2015 Lipid panel Cholesterol [facility] Start: 05-20-2012 Annual wellness visit Annual W ellness Visit (G0438) [facility] Start: 02-01-1998 Hepatitis C screening Hepatitis C An tibody [facility] Start: 02-01-1998 Tetanus + diphtheria + acellular pertussis vaccine (product) [facility] Start: 02-01-1995 HIV screening HIV Test [facility] Start: 1980 COVID-19 Vaccine (#1) COVID-19 Vacci ne (#1) [facility] Immunizations Immunization Date Immunization Notes Care Provider [facility] 03-04-2020 pneumococcal conjuga te vaccine, 13 valent Mora Urmetz RDH Work Phone: [facility] 01-26-2018 influenza, injectabl e, quadrivalent, preservative free Mora Urmetz RDH Work Phone: [facility] 01-26-2018 influenza virus vaccine, unspecified formulation Mora Urmetz RDH Work Phone: [facility] 02-10-2017 influenza virus vaccine, unspecified formulation Cricket Lue [facility] 02-10-2017 influenza, injectabl e, quadrivalent, contains preservative Mora Urmetz RDH Work Phone: [facility] 02-07-2015 influenza virus vaccine, unspecified formulation Cricket Lue [facility] 02-07-2015 influenza, injectabl e, quadrivalent, preservative free Mora Urmetz RDH Work Phone: [facility] 10-23-2014 pneumococcal polysaccharide vaccine, 23 valent Mora Urmetz RDH Work Phone: [facility] 12-31-2010 influenza virus vaccine, unspecified formulation Cricket Levine [facility] 12-31-2010 influenza, seasonal, injectable Mora Ulloametz RD Work Phone: [facility] 03-06-2009 novel [id number], preservative-free, injectable Mora Artemiometz RD Work Phone: [facility] 02-09-2008 influenza virus vaccine, whole virus Mora Powell [facility] Work Phone: [facility] 02-09-2008 influenza, whole Cricket Levine [facility] NEGATED: Highlighted row has not occurred!12-10-2021 SARS-CoV-2 mRNA (tozinameran 5y-11y) vaccine Cricket Levine [facility] Payers Date Payer Category Payer Medicaid [id number] 2011 Medicare MEDICARE MEDICAR E PART A & B [id number] 2011-Present [address] [place] [address] Medicare [id number] 1980 Unknown [id number] [id number]2 1980 Unknown [id number] 2.16.840.1.946778.3.579.2.593 1980 Unknown [id number] 2.16.840.1.854861.3.579.2.593 1980 Unknown [id number] 2.16.840.1.260292.3.579.2.593 1980 Unknown [id number] 2.16.840.1.843596.3.579.2.593 1980 Unknown [id number] 2.16.840.1.044684.3.579.2.727 1980 Unknown [id number] 2.16.840.1.343029.3.579.2.727 1959 Medicaid [id number] 1959 Medicare [id number] 2.16.840.1.109912.19 1953 Unknown [id number] 2.16.840.1.090840.3.579.2.593 1953 Unknown [id number] 2.16.840.1.064372.3.579.2.593 1953 Unknown [id number] 2.16.840.1.103511.3.579.2.593 1953 Unknown [id number] 2.16.840.1.673922.3.579.2.593 1953 Unknown [id number] 2.16.840.1.177786.3.579.2.593 1953 Unknown [id number] 2.16.840.1.427272.3.579.2.593 1953 Unknown [id number] 2.16.840.1.831229.3.579.2.593 1953 Unknown [id number] 2.16.840.1.805551.3.579.2.593 1953 Unknown [id number] 2.16.840.1.588419.3.579.2.593 1953 Unknown [id number] 2.16.840.1.736797.3.579.2.593 1953 Unknown [id number] 2.16.840.1.862918.3.579.2.593 1953 Unknown [id number] 2.16.840.1.159187.3.579.2.593 1953 Unknown [id number] 2.16.840.1.428547.3.579.2.593 1953 Unknown [id number] 2.16.840.1.743801.3.579.2.593 Self-pay Self Pay [id number] Social History Date Type Detail Facility Tobacco smoking status No Smoking Status Entered [facility] Sex Assigned At Male [facility] Start: 03-28-2020 Tobacco smoking status NHIS Tobacco smoking consumption unknown [facility] Start: 1980 Sex Assigned At Not on file [facility] Tobacco smoking status No Smoking Status Entered [facility] Start: 12-16-2022 Tobacco smoking status Never smoked tobacco (finding) [facility] Tobacco smoking status Never [facility] Start: 1980 Sex Assigned At Male [facility] Functional Status Date Assessment Result Facility 12-16-2022 Functional Status N/A [facility] 12-10-2021 Functional Status N/A [facility] 10-22-2021 Functional Status N/A [facility] Clinical Notes 10-22-2021 to 01-05-2023 Note Date & Type Note Facility 01-05-2023 Evaluation note Encounter Date Diagnosis Assessment Notes Dec, COPD (chronic obstructive pulmonary disease) (ICD-10 - J44.9) [employer] Other 08-30-2023 Hospital Discharge instructions Patient Education [...] provider. Document Revised: 08/14/2021 Document Reviewed: 08/14/2021 [employer] Patient Education 2022 [employer]. Follow Up Care 12/10/2021 11:51:23 With:Abner BYRNE, JUNIOR Hawk, URO Address: When: Unknown Comments:LENORA [facility] 03-07-2023 Evaluation note* Encounter Date Diagnosis Assessment Notes Treatment Notes Treatment Clinical Notes Jun, COPD (chronic obstructive pulmonary disease) (ICD-10 - J44.9) Continue with respiratory regemin, including VEST therapy, as you currently are doing. Call office with respiratory questions or concerns. [employer] Other 09-06-2022 Evaluation note* Encounter Date Diagnosis Assessment Notes Treatment Notes Treatment Clinical Notes Dec, COPD (chronic obstructive pulmonary disease) (ICD-10 - J44.9) Continue with VEST therapy twice a day. Ok to increase to TID if needed. [employer] Other 08-30-2022 NotePt presented today for OR evaluation. Limited eval was completed. Pt's case is not urgent updated contact information and placed Pt on OR list. Step by step process for OR flyer was given to caregiver. Please wait for phone call from OR coordinator.[email or web address] [id number] Instructions* Patient Instructions * Mora Powell RDH - 12/16/2021 11:57 AM EDT Pt presented today for OR evaluation. Limited eval was completed. Pt's case is not urgent updated contact information and placed Pt on OR list. Step by step process for OR flyer was given to caregiver. Please wait for phone call from OR coordinator. documented in this [id number] History of Present illness Narrative* Mora Powell RDH - 12/16/2021 11:42 AM EDT ----- Wednesday, December 16, 2021 at 12:03:50 PM ----- ----- Provider: [id number] Irizarry -- Clinic: [place] ----- [facility], Pt is ready for tx. Pt presented for dental evaluation for future OR. Caregiver in the room. Patient is non-verbal. Severe intellectual disability, seizure disorder Caregiver stated patient is not pain and no complaining. Radiograph taken today: no possible due to patient behavior Case requested for OR. Guardian mother Katia Lopez. [phone]. [facility] [phone] [id number] [id number] ( [facility] pt's appt) AVS printed and handed flyer for step by step instruction of OR process to Caregiver exam By: Elliott Ham [facility] [place]. OR ----- Signed on Thursday, December 16, 2021 at 12:18:18 PM ----- ----- Provider: Julia Adams DDS -- Clinic: [place] ----- documented in this [id number] Hospital Discharge instructions Patient Education 12/10/2021 11:47:35 [...] nerve stimulation). For women, using a medical data entry clerk to prevent urine leaks. This is a [...] right after experiencing incontinence. General instructions Take ygxf-hie-qelmuuv and prescription medicines only as told by [...] 05/13/2005 Document Revised: 04/15/2018 Document Reviewed: 07/15/2017 [employer] Patient Education 2020 [employer] Follow Up Care 10/22/2021 11:38:20 With:Abner BYRNE, JUNIOR Hawk, URO Address: When:1 year Comments:W/ renal US [facility] 07-06-2022 Hospital Discharge instructions Patient Education 10/22/2021 [...] nerve stimulation). For women, using a medical data entry clerk to prevent urine leaks. This is a [...] right after experiencing incontinence. General instructions Take wyfj-mal-pywsvkw and prescription medicines only as told by [...] 05/13/2005 Document Revised: 04/15/2018 Document Reviewed: 07/15/2017 [employer] Patient Education 2020 [employer]. 10/22/2021 11:42:30 Renal Mass Renal Mass A [...] provider gives to you. In general: Take bmft-tct-gjrhkzp and prescription medicines only as told by [...] 10/31/2014 Document Revised: 05/12/2018 Document Reviewed: 05/12/2018 [employer] Patient Education 2020 [employer]. Follow Up Care 09/22/2021 14:10:46 With:Cricket Levine MD, JUNIOR, URO Address: When:1 month [facility] evaluation + Plan note Future Appointments Appointment Date:11/19/2021 10:00:00 AM Scheduled Provider:Cricket Levine MD Location:[facility] Appointment Type:URO Office Visit [facility] evaluation + Plan note Future Appointments Appointment Date:12/16/2022 10:15:00 AM Scheduled Provider:Abner BYRNE, Cricket Little Location:[facility] Appointment Type:URO Office Visit [facility] evaluation note* Diagnosis Onset Date Resolution Status COPD (chronic obstructive pulmonary disease) acute Severe intellectual disability [facility] Work Phone: History general Narrative - Reported* Type Description Date Medical History Mental retardation Medical History Seizure Disorder Medical History Tristen Syndrome Medical History ADD Medical History Hypothyroidism Medical History Spastic Quadraparesis Medical History Osteoporosis Medical History Tristen-Beuren syndrome Medical History Seizure disorder Medical History Seizure disorder Medical History COPD Surgical History VNS REPLACED 2021 [employer] Other Hospital course Narrative No data available for this section [facility] Hospital Discharge instructions No data available for this section [facility] No data available for this section [facility] Summary Purpose Family History No Family History Records FoundNo Family History Records FoundNo Family History Records Found Advance Directives Advance Directive Response Recorded Date/ Time Advance Directives No March 4:51pm Chief Complaint and Reason for Visit Chief Complaint 6 Month f/u- COPD Reason for Visit COPD (chronic obstru ctive pulmonary disease) Severe intellectual disability Additional Source Comments Care Team (unrecognized sect ion and content) Business And Financial Counsel Relationship Specialty Start Date End Date Abundio Mares DDS [address] [place] [address] Resident Dentistry 02/23/20 Business And Financial Counsel Relationship Specialty Start Date End Date Abundio Mares DDS [address] [place] [address] Resident Dentistry 02/23/20 Team Status: Active Member Role Status Dates Fam Ventura DO Primary Care Provider Active Team Status: Inactive Member Role Status Dates Fam Ventura DO Primary Care Provider Active Start: July 06, 2023 End: July 06, 2023 Antionette Castaneda APRN ACNP-BC Attending Provider Active Start: July 06, 2023 End: July 06, 2023 (unrecognized sect ion and content) No Status Records FoundNo Status Records FoundNo Status Records Found INFORMATION SOURCE (unrecogn ized section and content) DATE CREATED AUTHOR 12/18/2021 [email or web address] DATE CREATED AUTHOR AUTHOR'S ORGANIZ ATION 08/05/2022 [facility] DATE CREATED AUTHOR AUTHOR'S ORGANIZ ATION 01/26/2023 [facility] REASON FOR VISIT (unrecogniz ed section and content) 6 mo f/u COPD, COPD6 month F ollow up6 month Follow up Goals (unrecognized section and content) Goals may be documented in a n alternate section FOR RECORDS PERTAINING TO PATIENTS WHO ARE [...] BE BASED ON THE PRIMARY CLINICAL RECORDS. [employer] provides no warranty or guarantee of the accuracy or completeness of information in this document.
[2023-08-13 08:27] LABS: Ammonia 19 umol/L (11-32)
[2023-08-13 12:36] LABS: Alanine Aminotransferase 43 U/L (16-63); Albumin Globulin Ratio 0.9; Albumin Level 3.6 g/dL (3.4-5.0); Alkaline Phosphatase 63 U/L (46-116); Anion Gap 12.6; Aspartate Amino Transferase 36 U/L (15-37); BUN Creatinine Ratio 12.3; Bilirubin Total 0.4 mg/dL (0.2-1.0); Calcium 8.9 mg/dL (8.5-10.1); Carbon Dioxide 28.4 mmol/L (21.0-32.0); Chloride 103 mmol/L (98-107); Chol HDL Ratio 5.3; Cholesterol 139 mg/dL (<=200); Estimated GFR (African America >60 (>=60); Estimated GFR (Non-African Ame >60 (>=60); Glucose 105 mg/dL (74-106); HDL Cholesterol 26 mg/dL (40-60); Sodium 140 mmol/L (136-145); Total Protein 7.6 g/dL (6.4-8.2); Triglycerides 106 mg/dL (<=150); VLDL CHOLESTEROL 21.2 mg/dL
[2023-08-13 12:37] LABS: Valproic Acid <3.0 ug/mL (50.0-100.0)
[2023-08-13 12:52] LABS: Free T4 0.84 ng/dL (0.76-1.46)
== END 2023-08-13 07:39 | disposition home or self-care (01) ==
LOC: LAB 07:39
PROVIDERS: PCP Family Medicine; Visit Provider Family Medicine
DX: Z79.899 Other long term (current) drug therapy (principal); G40.909 Epilepsy, unspecified, not intractable, without status epilepticus; K76.82 Hepatic encephalopathy
CPT/HCPCS: 36415; 80053; 80061; 80164; 82140; 82306; 84439; 84443

== ENCOUNTER 2023-11-09 06:30 | Outpatient (OUT) | payer MEDICARE, MEDICAID, SELFPAY ==
--- OUTSIDE RECORDS SUMMARY | 2023-11-09 06:33 | XMS_ITS | CCD ---
Author Organization [facility] Care Team Providers Care Textile Screen Maker Name Role Phone FAM VENTURA Primary Care Physician [phone] PROVIDER, UNKNOWN Attending Unavailable PROVIDER, UNKNOWN Admitting Unavailable Abundio Mares DDS Unavailable LeonelAntionette Unavailable LORENZO, DR FAM Duran [...] Duran Primary Care Unavailable VENTURA, DR FAM Druan Attending Unavailable VENTURA, DR FAM Duran Admitting Unavailable VENTURA, DR FAM Duran Consulting Unavailable VENTURA, DR FAM Duran Primary Care Unavailable VENTRUA, DR FAM Duran Attending Unavailable VENTURA, DR [...] Unavailsusan BURGER ., DR FIELDS Consulting Unavailable TROMALKA ESPITIA Consulting Unavailable RILEY, SOPHIA Consulting Unavailable JBARAGURJIT Consulting Unavailable VENTURA, DR FAM Duran Primary Care Unavailable NADERER, DR CHELE Duran Consulting Unavailable NADERER, DR CHELE Duran Attending Unavailable NADERER, DR CHELE Duran Admitting Unavailable BROWNANICETO Consulting Unavailable DIAB ., EMIL Consulting Unavailable [...] VENTURA, DR FAM Duran Attending Unavailable DAVIESMARGARITO FOSS Consulting Unavailable VENTURA, DR FAM Duran Admitting [...] ., PARISH Admitting Unavailable ALICE .IDRIS Consulting UnavailGUANAKITO Redd Consulting Unavailable SHARMILA ., ANJELICA Consulting Unavailable SHARMILA .ANJELICA Attending Unavailable VENTURA, DR FAM Duran Primary Care Unavailable SHARMILA .ANJELICA Admitting Unavailable HAY ., DR FIELDS Consulting Unavailable HAY ., DR FIELDS Attending Unavailable VENTURA, DR FAM Duran Primary Care Unavailable HAY ., DR FIELDS Admitting Unavailable KlipperAniceto Consulting Unavailable LuCricket jones Attending Unavailable VENTURA, FAM Referring Unavailable VENTURA, FAM Attending Unavailable VENTURA, FAM Admitting Unavailable TAJ, RODRIGUEZ Attending Unavailable Vishnu ACEVES, Abundio Unavailable Allergies Allergy Classification Reported Allergen(s) Allergy Type Date of Onset Reaction(s) Facility (8 sources) Amoxicillin / Clavulanate; Translations: [amoxicillin-clav ulanate] Drug Allergy Unknown [facility] (9 sources) Phenytoin; Translations: [phenytoin] Drug Allergy 01-06-20 23 Unknown, Unknown Reaction [facility] (13 sources) Promethazine; Translations: [promethazine] Drug Allergy 05-12-19 17 Unknown, Unknown Reaction [facility] (4 sources) Phenytoin; Translations: [PHENYTOIN SODIUM EXTENDED] Drug Allergy 05-12-19 17 [facility] Rep[facility] (4 sources) AMOXICILLIN-POT CLAVULANATE; Translations: [AMOXICILLIN-POT CLAVULANATE] Propensity to adverse reactions to drug (disorder) 05-12-19 17 [facility] Rep[facility] (1 source) 4-Aminobenzoic Acid Drug Allergy [facility] (1 source) Amoxicillin / Clavulanate Drug Allergy 05-29-19 14 [facility] (1 source) Levamisole Drug Allergy 05-29-19 14 [facility] (1 source) metroNIDAZOLE Drug Allergy [facility] (1 source) Phenytoin Drug Allergy 05-29-19 14 [facility] (1 source) remdesivir (investigational use) Drug allergy (disorder) [facility] (1 source) Amoxicillin Drug Allergy 01-06-20 23 Unknown Reaction [facility] (1 source) Clavulanate Drug Allergy 01-06-20 23 Unknown Reaction [facility] Medications Current Medications Medication Drug Class(es) Dates Sig (Normalized) Sig (Original) Acetaminophen (6 sources) Start: 12-16-2022 acetaminophen Refills(s) 0 Start Date: 12/16/22 Status: Ordered Start: 03-28-2020 Acetaminophen Active 650 MG [place] EVERY 4-6 HOURS March 28, 2020 1:00am [...] Active alendronic acid 70 mg oral tablet (11 sources) Bisphosphonate Start: 07-04-2015 alendronate (F OSAMAX) 70 MG tablet 02/23/2020 Active Start: 07-04-2015 alendronate Ta b 70 mg, [...] day Active atorvastatin 10 mg oral tablet (11 sources) HMG-CoA Reductase Inhibitor Start: 07-04-2015 atorvastatin (LIPITOR) 10 MG tablet 02/23/2020 Active azelastine hydrochloride 0.137 mg/actuat metered dose nasal [...] day Active clindamycin 300 mg oral capsule (3 sources) Lincosamide Antibacterial Start: 02-29-2020 take 1 capsule by mouth three times daily clindamycin (CLEOCIN) 300 MG capsule TAKE 1 CAPSULE BY MOUTH 3 TIMES DAILY FOR 7 DAYS. 21 Capsule 02/29/2020 Active cloBAZam 10 mg oral tablet (11 sources) Benzodiazepine Start: 07-04-2015 cloBAZam (ONFI) 10 MG tablet 02/26/2020 Active clonazePAM 0.25 mg disintegrating oral tablet (4 [...] 1:00am 10MG RECTAL GEL, PATIENT TAKES IT [place] - wont let me save without route. Start: 07-05-2015 diazepam 10 mg , Rectal, PRN Seizure, Refills(s) 0 Start Date: 07/05/15 Status: Ordered docusate sodium 100 mg oral capsule (8 sources) Start: 10-22-2021 take 1 capsule by mo [facility] twice daily as needed for constipation docusate sodium 100 mg Cap 100 mg = 1 cap(s), Oral, BID, PRN for constipation, # 20 cap(s), Refills(s) 0 Start Date: 10/22/21 Status: Ordered Start: 03-28-2020 take 200 mg by mouth once daily in the morning Docusate Sodium Active 200 MG PO Every morning March 28, 2020 1:00am take 1 capsule by [facility] every twenty-four hours Docusate Sodium 100 MG [...] Status: Ordered felbamate 400 mg oral tablet (11 sources) Anti-epileptic Agent Start: 02-23-2020 felbamate (FELBATOL) 400 MG tablet 02/23/2020 Active fenofibrate 145 mg oral tablet (4 sources) Peroxisome Proliferator Receptor alpha Agonist Start: 10-22-2021 take 1 mg by mouth once daily fenofibrate 145 mg Tab mg tab(s), Oral, Daily, Refills(s) 0 Start Date: 10/22/21 Status: Ordered fluticasone furoate 0.05 MG/ACTUAT Dry Powder Inhaler (11 sources) Corticosteroid Start: 10-22-2021 fluticasone furoate 50 mcg inhalation powder Inhalation, q24hr, Refills(s) 0 Start Date: 10/22/21 Status: Ordered Start: 03-28-2020 Fluticasone Pr opionate Active 2 SPRAY INTRANASAL Daily March 28, 2020 1:00am Start: 02-26-2020 fluticasone (F LONASE) 50 mcg/act nasal inhaler 02/26/2020 Active take 1 spray(s) nasa l route once daily Fluticasone Propionate 50 MCG/ACT 1 spray in each nostril Nasally Once a day Active furosemide 20 mg oral tablet (11 sources) Loop Diuretic Start: 02-23-2020 furosemide (LA SIX) 20 MG tablet 02/23/2020 Active glycopyrrolate 1 mg oral tablet (8 sources) [...] 2020 1:00am lactulose 667 mg/ml oral solution (14 sources) Osmotic Laxative Start: 10-22-2021 Enulose 10 g/ 15 mL oral and rectal liquid gm mL, Refills(s) 0 Start Date: 10/22/21 Status: Ordered Start: 03-28-2020 take 1 mL by mouth f our times daily Lactulose Active 60 ML PO Four times daily March 28, 2020 1:00am Start: 02-19-2020 lactulose 10 g /15 mL oral solution 02/19/2020 Active Start: 07-04-2015 lactulose 40 g marlena, Oral, QID, Refills(s) 0, Other (see comment) Start Date: 07/04/15 Status: Ordered take 15 mL by mouth once daily L actulose 10 GM/15ML 15 ml Orally Once a day Active levETIRAcetam 750 mg oral tablet (11 sources) Start: 03-28-2020 take 1500 mg by mouth twice daily Levetiracetam Active 1500 MG PO Twice daily March 28, 2020 1:00am Start: 07-04-2015 levetiracetam (KEPPRA) 750 MG tablet 02/23/2020 Active take 2 tablets by mo [facility] in the morning, then take 3 tablets by mouth at bedtime levETIRAcetam 500 mg 2 tablet in am and 3 tabs at hs Orally As Directed Active levothyroxine sodium 0.1 mg oral tablet (16 sources) l-Thyroxine Start: 06-28-2023 take 150 ug by mouth once daily Levothyroxine Active 150 MCG PO Daily June 28, 2023 1:10pm Start: 02-23-2020 End: 06-28-2023 levothyroxine (SYNTHROID) 10 0 MCG tablet 02/23/2020 Active Start: 02-23-2020 End: 06-28-2023 levothyroxine (SYNTHROID) 50 MCG tablet 02/23/2020 Active Start: 07-04-2015 levothyroxine 150 microgram, Oral, Daily, Refills(s) 0, Thyroid Start Date: 07/04/15 Status: Ordered take 1 tablet by [facility] every twenty-four hours Levothyroxine Sodium 150 MCG 1 tablet Orally Once a day Active linaclotide 0.145 mg oral capsule (12 sources) Guanylate Cyclase-C Agonist Start: 12-16-2022 Linzess 145 mcg oral capsule Start Date: 12/16/22 Status: Ordered Start: 02-23-2020 Linzess 145 MC G CAPS capsule 02/23/2020 Active Start: 07-05-2015 Linzess 145 mi crogram, Oral, [...] Ordered Normal saline (7 sources) Start: 07-05-2015 [place] Saline Alpa al Gel Nasal, TID, Refill(s) 0, Dry nasal passages Start Date: 07/05/15 Status: Ordered [place] Saline Nasal Gel Nasally Active omeprazole 40 mg delayed release oral capsule (11 sources) Proton Pump Inhibitor Start: 02-23-2020 omeprazole (PRILOSEC) 40 MG capsule 02/23/2020 Active OXcarbazepine 600 mg oral tablet (20 sources) Anti-epileptic Agent Start: 06-28-2023 take 300 mg by mouth twice daily Oxcarbazepine Active 300 MG PO Twice daily June 28, 2023 1:14pm Start: 02-23-2020 End: 06-28-2023 oxcarbazepine (TRILEPTAL) 60 0 MG tablet 02/23/2020 Active Start: 02-23-2020 End: 06-28-2023 take 300 mg by mouth twice daily Oxcarbazepine Discontinued 300 MG PO Twice daily March 28, 2020 1:00am June 28, 2023 1:22pm Start: 07-05-2015 take 300 mg by mouth [...] bid, Prophylaxis Start Date: 07/05/15 Status: Ordered [id number] oral powder for reconstitution (1 source) Start: [id number] oral powder for reconstitution Start Date: 12/16/22 Status: Ordered polyethylene glycol 3350 22705 mg powder for oral solution (4 sources) [...] 0 Start Date: 10/22/21 Status: Ordered sennosides, detention 8.6 mg oral tablet (1 source) Start: [...] e a day Active Sodium Chloride-Aloe Vera ([place] Saline) gel (1 source) Start: 06-28-2023 Sodium Chlorid e-Aloe Vera ([place] Saline) gel Active 1 APPLIC TOPICAL Daily at bedtime June 28, 2023 12:00am tamsulosin hydrochloride 0.4 mg oral capsule (8 sources) alpha-Adrenergi c Rachelle Start: 07-04-2015 take 0.4 mg by mouth once daily Tamsulosin Active 0.4 MG PO Daily March 28, 2020 1:00am divalproex sodium 250 mg delayed release oral tablet (17 sources) Mood Stabilizer, Anti-epileptic Agent Start: 06-28-2023 End: 06-28-2023 take 250 mg by mouth twice daily Divalproex Discontinued 250 MG PO Twice daily June 28, 2023 1:06pm June 28, 2023 1:22pm Start: 03-28-2020 End: 06-28-2023 take 250 mg by mouth three times daily Divalproex Discontinued 250 MG PO Three times daily March 28, 2020 1:00am June 28, 2023 1:21pm Start: 02-23-2020 take 250 mg by mouth twice daily Divalproex Active 250 MG PO Twice daily June 28, 2023 1:07pm Start: 02-23-2020 End: 06-28-2023 take 125 mg by mouth twice daily Divalproex Discontinued 125 MG PO Twice daily March 28, 2020 1:00am June 28, 2023 1:21pm Start: 02-23-2020 take 1 mg by mouth [...] Onset: 12-23-2021 Resolved: 12-23-2021 Chronic Developmental disorders (10 sources) Severe intellectual disability; Translations: [Mental handicap] [...] 06-30-2013 Chronic Other aftercare (5 sources) Other exterminator termite (current) drug therapy; Translations: [OTH JAIL CURRENT DRUG THERAPY] Onset: 06-03-2022 Episodic Other [...] (oxcarbazepine 600 mg Tab) polyethylene glycol 3350 ([id number] oral powder for reconstitution) polyethylene glycol 3350 (polyethylene glycol 3350 17 gram packet) rifaximin (Xifaxan 550 mg oral tablet) senna (Senna 8.6 mg oral tablet) sodium chloride nasal ([place] Saline Nasal Gel) tamsulosin Discharge Vitals Temperature [...] alendronate (alendronate Tab) 70 Milligram By Mouth Haily Unchanged ascorbic acid (Vitamin C) Every day [...] Application T (more content not included)... Normal [facility] Patient Educationon 12-17-19 23 Patient Education [...] provider. Document Revised: 08/14/2021 Document Reviewed: 08/14/2021 [employer] Patient Education ? [address] [employer] [facility] Physician Orderon 12-16-2022 Physician Order [id number] .[id number]:[address] [facility] RAD - Ultrasound Reporton RAD - Ultrasound Report [id number] .00CD:[address] [facility] Urology Office/Clinic Noteon 12-16-2022 Urology Office/Clinic [...] of retractile testes. Pt currently resides in [facility]. CBC/CMP 08/01/22 1. Retractile testis (Q55.22: Retractile [...] Follow-up With When Contact Information Abner BYRNE, Cricket Little, URL, URO Additional Instructions: PRN Patient Education Bright Sue I, Makayla Todd, personally scribed for Dr. Levine on 12/16/2022 11:26:45. . Documentation recorded by the héctoribkaren, Makayla Todd, accurately reflects the services(s) I [...] Eye-Both, QID atorvastatin, 10 mg, Oral, Daily [place] Saline Nasal Gel, Nasal, TID azelastine nasal 137 mcg/inh spray, 2 spray(s), Nasal, As (more content not included)... Normal [facility] Comment on above: Result Comment: Elec tronically Signed By: Abner BYRNE, Cricket Little\.br\Date and Time Signed: 12/16/22 20:02 EDT\.br\Electronically Co-Signed By: Makayla Todd\.br\Date and Time Co-Signed: 12/16/22 11:27 EDT XR CHEST 1 Von 08-04-2022 XR CHEST 1 V EXAM: XR CHEST 1 V a t [id number] HISTORY: SHORTNESS OF BREATH COMPARISON: 07/28/2022 TECHNIQUE: [...] by: GUANAKITO MEADE Date: 2022-08-04 18:50 Normal [facility] AMMONIAon 08-02-2022 Ammonia (P) [Moles/Vol] 87 umol/L Critically high 11-32 [facility] Comment on above: Performed By: #### B MP #### [facility] [address] [place] [address] Dr. Deepak Greenfield AMMONIAon 08-01-2022 Ammonia (P) [Moles/Vol] 42 umol/L Critically high [facility] Comment on above: Performed By: #### M G, CMP #### [facility] [address] [place] [address] Dr. Deepak Greenfield CBC W MANUAL DIFFon 08-02-19 23 ATYPICAL LYMPH # 0.41 103/ul Normal [facility] Comment on above: Performed By: #### M G, CMP #### [facility] [address] [place] [address] Dr. Deepak Greenfield ATYPICAL LYMPH % 7 % Normal [facility] Comment on above: Performed By: #### M G, CMP #### [facility] [address] [place] [address] Dr. Deepak Greenfield BAND # 0.0 103/ul Normal 0.0-0.3 [facility] Comment on above: Performed By: #### M G, CMP #### [facility] [address] [place] [address] Dr. Deepak Greenfield BAND % 0 % Normal 0-5 [facility] Comment on above: Performed By: #### M G, CMP #### [facility] [address] [place] [address] Dr. Deepak Greenfield BASOM # 0.00 103/ul Normal 0.00-0.10 [facility] Comment on above: Performed By: #### M G, CMP #### [facility] [address] [place] [address] Dr. Deepak Greenfield BASOM % 0.0 % Critically low 0.2-2.0 [facility] Comment on above: Performed By: #### M G, CMP #### [facility] [address] [place] [address] Dr. Deepak Greenfield BLAST # Normal [facility] Comment on above: Performed By: #### M G, CMP #### [facility] [address] [place] [address] Dr. Deepak Greenfield BLAST % Normal [facility] Comment on above: Performed By: #### M G, CMP #### [facility] [address] [place] [address] Dr. Deepak Greenfield CORRECTED WBC Normal 4.0-11.0 [facility] Comment on above: Performed By: #### M G, CMP #### [facility] [address] [place] [address] Dr. Deepak Greenfield EOS # 0.06 103/ul Normal 0.00-0.70 [facility] Comment on above: Performed By: #### M G, CMP #### [facility] [address] [place] [address] Dr. Deepak Greenfield EOS% 1.0 % Normal 0.9-7.0 [facility] Comment on above: Performed By: #### M G, CMP #### [facility] [address] [place] [address] Dr. Deepak Greenfield HCT 37.6 % Critically low 42.0-54.0 [facility] Comment on above: Performed By: #### M G, CMP #### [facility] [address] [place] [address] Dr. Deepak Greenfield HGB 12.3 g/dl Critically low 14.0-18.0 [facility] Comment on above: Performed By: #### M G, CMP #### [facility] [address] [place] [address] Dr. Deepak Greenfield LYMPHM # 1.91 103/ul Normal 1.20-3.80 [facility] Comment on above: Performed By: #### M G, CMP #### [facility] [address] [place] [address] Dr. Deepak Greenfield LYMPHM% 33.0 % Normal 20.5-60.0 [facility] Comment on above: Performed By: #### M G, CMP #### [facility] [address] [place] [address] Dr. Deepak Greenfield MCH 31.7 pg Normal 25.9-34.0 [facility] Comment on above: Performed By: #### M G, CMP #### [facility] [address] [address] [address] Deepak Greenfield MCHC 32.7 g/dl Normal 29.9-35.2 [facility] Comment on above: Performed By: #### M G, CMP #### [facility] [address] [address] [address] Deepak Greenfield MCV 96.9 fL Critically high 80.0-94.0 [facility] Comment on above: Performed By: #### M G, CMP #### [facility] [address] [place] [address] Dr. Deepak Greenfield METAMYELOCYTE # Normal [facility] Comment on above: Performed By: #### M G, CMP #### [facility] [address] [place] [address] Dr. Deepak Greenfield METAMYELOCYTE % Normal [facility] Comment on above: Performed By: #### M G, CMP #### [facility] [address] [place] [address] Dr. Deepak Greenfield MONOM# 0.29 103/ul Critically low 0.30-0.80 [facility] Comment on above: Performed By: #### M G, CMP #### [facility] [address] [place] [address] Dr. Deepak Greenfield MONOM% 5.0 % Normal 1.7-12.0 [facility] Comment on above: Performed By: #### M G, CMP #### [facility] [address] [place] [address] Dr. Deepak Greenfield MPV 11.0 fL Normal 9.5-13.5 [facility] Comment on above: Performed By: #### M G, CMP #### [facility] [address] [place] [address] Dr. Deepak Greenfield MYELOCYTE # Normal [facility] Comment on above: Performed By: #### M G, CMP #### [facility] [address] [place] [address] Dr. Deepak Greenfield MYELOCYTE % Normal [facility] Comment on above: Performed By: #### M G, CMP #### [facility] [address] [address] [address] Deepak Greenfield NRBC Normal [facility] Comment on above: Performed By: #### M G, CMP #### [facility] [address] [address] [address] Deepak Greenfield PLT 208 103/ul Normal 150-450 [facility] Comment on above: Performed By: #### M G, CMP #### [facility] [address] [address] [address] Deepak Greenfield RBC 3.88 106/ul Critically low 4.70-6.10 [facility] Comment on above: Performed By: #### M G, CMP #### [facility] [address] [place] [address] Dr. Deepak Greenfield RDW 12.9 % Normal 11.0-15.0 [facility] Comment on above: Performed By: #### M G, CMP #### [facility] [address] [address] [address] Deepak Greenfield SEG # 3.13 103/ul Normal 1.40-6.50 [facility] Comment on above: Performed By: #### M G, CMP #### [facility] [address] [address] [address] Deepak Greenfield SEG % 54.0 % Normal 43.0-75.0 [facility] Comment on above: Performed By: #### M G, CMP #### [facility] [address] [place] [address] Dr. Deepak Greenfield STOMATOCYTES 3+ Normal [facility] Comment on above: Performed By: #### M G, CMP #### [facility] [address] [address] [address] Deepak Greenfield WBC 5.8 103/ul Normal 4.0-11.0 [facility] Comment on above: Performed By: #### M G, CMP #### [facility] [address] [place] [address] Dr. Deepak Greenfield PROF CHEM 8 (BAS METB)on Anion gap [Moles/Vol] 16.1 mmol/L Normal [facility] Comment on above: Performed By: #### B MP #### [facility] [address] [place] [address] Dr. Deepak Greenfield Calcium [Mass/Vol] 9.3 mg/dL Normal 8.5-10.1 [facility] Comment on above: Performed By: #### B MP #### [facility] [address] [place] [address] Dr. Deepak Greenfield Chloride [Moles/Vol] 105 mmol/L Normal 98-107 [facility] Comment on above: Performed By: #### B MP #### [facility] [address] [place] [address] Dr. Deepak Greenfield CO2 [Moles/Vol] 27.6 mmol/L Normal 21.0-32.0 [facility] Comment on above: Performed By: #### B MP #### [facility] [address] [place] [address] Dr. Deepak Greenfield Creatinine [Mass/Vol] 0.96 mg/dL Normal 0.70-1.30 [facility] Comment on above: Performed By: #### B MP #### [facility] [address] [place] [address] Dr. Deepak Greenfield EGFR-AF CHADIAN >60 Normal >=60 [facility] Comment on above: Performed By: #### B MP #### [facility] [address] [address] [address] Deepak Greenfield EGFR-NON AF CHADIAN >60 Normal >=60 [facility] Comment on above: Performed By: #### B MP #### [facility] [address] [place] [address] Dr. Deepak Greenfield Glucose [Mass/Vol] 160 mg/dL Critically high 74-106 [facility] Comment on above: Performed By: #### B MP #### [facility] [address] [place] [address] Dr. Deepak Greenfield Potassium [Moles/Vol] 3.7 mmol/L Normal 3.5-5.1 [facility] Comment on above: Performed By: #### B MP #### [facility] [address] [place] [address] Dr. Deepak Greenfield Sodium [Moles/Vol] 145 mmol/L Normal 136-145 [facility] Comment on above: Performed By: #### B MP #### [facility] [address] [place] [address] Dr. Deepak Greenfield Urea nitrogen [Mass/Vol] 5.0 mg/dL Critically low 7.0-18.0 [facility] Comment on above: Performed By: #### B MP #### [facility] [address] [place] [address] Dr. Deepak Greenfield Urea nitrogen/Creatinine [Mass ratio] 5.2 mg/mg Normal [facility] Comment on above: Performed By: #### B MP #### [facility] [address] [place] [address] Dr. Deepak Greenfield AMMONIAon 07-31-2022 Ammonia (P) [Moles/Vol] 94 umol/L Critically high 11-32 [facility] Comment on above: Performed By: #### M G, CMP #### [facility] [address] [place] [address] Dr. Deepak Greenfield CBC AUTO DIFFon 07-31-2022 BASO # 0.0 103/ul Normal 0.0-0.1 [facility] Comment on above: Performed By: #### B MP #### [facility] [address] [place] [address] Dr. Deepak Greenfield Basophils/100 WBC (Bld) 0.1 % Critically low 0.2-2.0 [facility] Comment on above: Performed By: #### B MP #### [facility] [address] [place] [address] Dr. Deepak Greenfield EO # 0.0 103/ul Normal 0.0-0.7 [facility] Comment on above: Performed By: #### B MP #### [facility] [address] [place] [address] Dr. Deepak Greenfield Eosinophils/100 WBC (Bld) 0.0 % Critically low 0.9-7.0 [facility] Comment on above: Performed By: #### B MP #### [facility] [address] [place] [address] Dr. Deepak Greenfield Erythrocyte distribution width (RBC) [Ratio] 13.1 % Normal 11.0-15.0 [facility] Comment on above: Performed By: #### B MP #### [facility] [address] [place] [address] Dr. Deepak Greenfield Hematocrit (Bld) [Volume fraction] 32.4 % Critically low 42.0-54.0 [facility] Comment on above: Performed By: #### B MP #### [facility] [address] [place] [address] Dr. Deepak Greenfield Hemoglobin (Bld) [Mass/Vol] 10.9 g/dL Critically low 14.0-18.0 [facility] Comment on above: Performed By: #### B MP #### [facility] [address] [place] [address] Dr. Deepak Greenfield IG # 0.02 10e3/ul Normal 0.00-0.03 [facility] Comment on above: Performed By: #### B MP #### [facility] [address] [place] [address] Dr. Deepak Greenfield IG % 0.3 % Normal 0.0-0.5 [facility] Comment on above: Performed By: #### B MP #### [facility] [address] [place] [address] Dr. Deepak Greenfield LYMPH # 2.7 103/ul Normal 1.2-3.8 [facility] Comment on above: Performed By: #### B MP #### [facility] [address] [place] [address] Dr. Deepak Greenfield Lymphocytes/100 WBC (Bld) 38.9 % Normal 20.5-60.0 [facility] Comment on above: Performed By: #### B MP #### [facility] [address] [place] [address] Dr. Deepak Greenfield MANUAL DIFF REQ NO Normal [facility] Comment on above: Performed By: #### B MP #### [facility] [address] [place] [address] Dr. Deepak Greenfield MCH (RBC) [Entitic mass] 32.3 pg Normal 25.9-34.0 [facility] Comment on above: Performed By: #### B MP #### [facility] [address] [place] [address] Dr. Deepak Greenfield MCHC (RBC) [Mass/Vol] 33.6 g/dL Normal 29.9-35.2 [facility] Comment on above: Performed By: #### B MP #### [facility] [address] [place] [address] Dr. Deepak Greenfield MCV (RBC) [Entitic vol] 96.1 fL Critically high 80.0-94.0 [facility] Comment on above: Performed By: #### B MP #### [facility] [address] [place] [address] Dr. Deepak Greenfield MONO # 0.3 103/ul Normal 0.3-0.8 [facility] Comment on above: Performed By: #### B MP #### [facility] [address] [place] [address] Dr. Deepak Greenfield Monocytes/100 WBC (Bld) 4.9 % Normal 1.7-12.0 [facility] Comment on above: Performed By: #### B MP #### [facility] [address] [place] [address] Dr. Deepak Greenfield NEUT # 3.9 103/ul Normal 1.4-6.5 [facility] Comment on above: Performed By: #### B MP #### [facility] [address] [place] [address] Dr. Deepak Greenfield Neutrophils/100 WBC (Bld) 55.8 % Normal 43.0-75.0 [facility] Comment on above: Performed By: #### B MP #### [facility] [address] [place] [address] Dr. Deepak Greenfield Platelet mean volume (Bld) [Entitic vol] 9.7 fL Normal 9.5-13.5 [facility] Comment on above: Performed By: #### B MP #### [facility] [address] [place] [address] Dr. Deepak Greenfield PLT 296 103/ul Normal 150-450 [facility] Comment on above: Performed By: #### B MP #### [facility] [address] [address] [address] Deepak Greenfield RBC 3.37 106/ul Critically low 4.70-6.10 [facility] Comment on above: Performed By: #### B MP #### [facility] [address] [address] [address] Deepak Greenfield WBC 7.0 103/ul Normal 4.0-11.0 [facility] Comment on above: Performed By: #### B MP #### [facility] [address] [place] [address] Dr. Deepak Greenfield PROF CHEM 8 (BAS METB)on Anion gap [Moles/Vol] 14.9 mmol/L Normal [facility] Comment on above: Performed By: #### C BC #### [facility] [address] [place] [address] Dr. Deepak Greenfield Calcium [Mass/Vol] 8.8 mg/dL Normal 8.5-10.1 [facility] Comment on above: Performed By: #### C BC #### [facility] [address] [place] [address] Dr. Deepak Greenfield Chloride [Moles/Vol] 105 mmol/L Normal 98-107 [facility] Comment on above: Performed By: #### C BC #### [facility] [address] [address] [address] Deepak Greenfield CO2 [Moles/Vol] 26.4 mmol/L Normal 21.0-32.0 [facility] Comment on above: Performed By: #### C BC #### [facility] [address] [place] [address] Dr. Deepak Greenfield Creatinine [Mass/Vol] 0.70 mg/dL Normal 0.70-1.30 [facility] Comment on above: Performed By: #### C BC #### [facility] [address] [address] [address] Deepak Greenfield EGFR-AF CHADIAN >60 Normal >=60 [facility] Comment on above: Performed By: #### C BC #### [facility] [address] [address] [address] Deepak Greenfield EGFR-NON AF CHADIAN >60 Normal >=60 [facility] Comment on above: Performed By: #### C BC #### [facility] [address] [address] [address] Deepak Greenfield Glucose [Mass/Vol] 129 mg/dL Critically high 74-106 [facility] Comment on above: Performed By: #### C BC #### [facility] [address] [place] [address] Dr. Deepak Greenfield Potassium [Moles/Vol] 4.3 mmol/L Normal 3.5-5.1 [facility] Comment on above: Performed By: #### C BC #### [facility] [address] [address] [address] Deepak Greenfield Sodium [Moles/Vol] 142 mmol/L Normal 136-145 [facility] Comment on above: Performed By: #### C BC #### [facility] [address] [place] [address] Dr. Deepak Greenfield Urea nitrogen [Mass/Vol] 6.0 mg/dL Critically low 7.0-18.0 [facility] Comment on above: Performed By: #### C BC #### [facility] [address] [place] [address] Dr. Deepak Greenfield Urea nitrogen/Creatinine [Mass ratio] 8.6 mg/mg Normal [facility] Comment on above: Performed By: #### C BC #### [facility] [address] [place] [address] Dr. Deepak Greenfield AMMONIAon 07-30-2022 Ammonia (P) [Moles/Vol] 64 umol/L Critically high 11-32 [facility] Comment on above: Performed By: #### C BC #### [facility] [address] [place] [address] Dr. Deepak Greenfield CBC AUTO DIFFon 07-30-2022 BASO # 0.0 103/ul Normal 0.0-0.1 [facility] Comment on above: Performed By: #### I NFLUAB #### [facility] [address] [place] [address] Dr. Deepak Greenfield Basophils/100 WBC (Bld) 0.0 % Critically low 0.2-2.0 [facility] Comment on above: Performed By: #### I NFLUAB #### [facility] [address] [place] [address] Dr. Deepak Greenfield EO # 0.0 103/ul Normal 0.0-0.7 [facility] Comment on above: Performed By: #### I NFLUAB #### [facility] [address] [place] [address] Dr. Deepak Greenfield Eosinophils/100 WBC (Bld) 0.0 % Critically low 0.9-7.0 [facility] Comment on above: Performed By: #### I NFLUAB #### [facility] [address] [place] [address] Dr. Deepak Greenfield Erythrocyte distribution width (RBC) [Ratio] 13.1 % Normal 11.0-15.0 [facility] Comment on above: Performed By: #### I NFLUAB #### [facility] [address] [place] [address] Dr. Deepak Greenfield Hematocrit (Bld) [Volume fraction] 31.4 % Critically low 42.0-54.0 [facility] Comment on above: Performed By: #### I NFLUAB #### [facility] [address] [place] [address] Dr. Deepak Greenfield Hemoglobin (Bld) [Mass/Vol] 10.5 g/dL Critically low 14.0-18.0 [facility] Comment on above: Performed By: #### I NFLUAB #### [facility] [address] [place] [address] Dr. Deepak Greenfield IG # 0.01 10e3/ul Normal 0.00-0.03 [facility] Comment on above: Performed By: #### I NFLUAB #### [facility] [address] [place] [address] Dr. Deepak Greenfield IG % 0.2 % Normal 0.0-0.5 [facility] Comment on above: Performed By: #### I NFLUAB #### [facility] [address] [place] [address] Dr. Deepak Greenfield LYMPH # 1.5 103/ul Normal 1.2-3.8 [facility] Comment on above: Performed By: #### I NFLUAB #### [facility] [address] [place] [address] Dr. Deepak Greenfield Lymphocytes/100 WBC (Bld) 27.5 % Normal 20.5-60.0 [facility] Comment on above: Performed By: #### I NFLUAB #### [facility] [address] [place] [address] Dr. Deepak Greenfield MANUAL DIFF REQ NO Normal [facility] Comment on above: Performed By: #### I NFLUAB #### [facility] [address] [place] [address] Dr. Deepak Greenfield MCH (RBC) [Entitic mass] 32.4 pg Normal 25.9-34.0 [facility] Comment on above: Performed By: #### I NFLUAB #### [facility] [address] [place] [address] Dr. Deepak Greenfield MCHC (RBC) [Mass/Vol] 33.4 g/dL Normal 29.9-35.2 [facility] Comment on above: Performed By: #### I NFLUAB #### [facility] [address] [place] [address] Dr. Deepak Greenfield MCV (RBC) [Entitic vol] 96.9 fL Critically high 80.0-94.0 [facility] Comment on above: Performed By: #### I NFLUAB #### [facility] [address] [place] [address] Dr. Deepak Greenfield MONO # 0.2 103/ul Critically low 0.3-0.8 [facility] Comment on above: Performed By: #### I NFLUAB #### [facility] [address] [place] [address] Dr. Deepak Greenfield Monocytes/100 WBC (Bld) 2.9 % Normal 1.7-12.0 [facility] Comment on above: Performed By: #### I NFLUAB #### [facility] [address] [place] [address] Dr. Deepak Greenfield NEUT # 3.8 103/ul Normal 1.4-6.5 [facility] Comment on above: Performed By: #### I NFLUAB #### [facility] [address] [place] [address] Dr. Deepak Greenfield Neutrophils/100 WBC (Bld) 69.4 % Normal 43.0-75.0 [facility] Comment on above: Performed By: #### I NFLUAB #### [facility] [address] [place] [address] Dr. Deepak Greenfield Platelet mean volume (Bld) [Entitic vol] 9.4 fL Critically low 9.5-13.5 [facility] Comment on above: Performed By: #### I NFLUAB #### [facility] [address] [place] [address] Dr. Deepak Greenfield PLT 256 103/ul Normal 150-450 [facility] Comment on above: Performed By: #### I NFLUAB #### [facility] [address] [place] [address] Dr. Deepak Greenfield RBC 3.24 106/ul Critically low 4.70-6.10 [facility] Comment on above: Performed By: #### I NFLUAB #### [facility] [address] [place] [address] Dr. Deepak Greenfield WBC 5.5 103/ul Normal 4.0-11.0 [facility] Comment on above: Performed By: #### I NFLUAB #### [facility] [address] [place] [address] Dr. Deepak Greenfield Coding Summary.on 07-30-2022 Coding Summary. CD:[id number] W w+PGhlYWQ+XI1QWDKpE53 bhPUhyW9nV3UIBRkEFhrv KDFOELeAVwVjthLcTM1zz XNjZXJu IC8+XZ7wCKJjRhsyzGMlj 3R9qPX8Q59ziw9eOHoaoJ Y0AAOmSnNvwvjke0hdhPk 6IDcuNmluOyBt YKRgrL94KXY9jS94Fx58i PMdxVZwv5xodTr7MrUoSU CdONJ5yFeaKIbml4WvXOO kM90glDEnu3F5 VPZbkXoxyGKmQuFpxYW4o U8cQZhmxkgac3bamjrwWd t9ua39dRFqg0O4aYB0M2F nimI1QGXmaGCi VrpguCMCgR1vmbgak8lqj xzqOzZyHGBiBSb4IXv4YT IqbUcuBwJtBU32FZG3XZH groPwL2CxSPJm zKrcSaQ7v6D5Zn2CB9AVW amuK4CTWKBGAVysjUV+PC 40xo82H3ZeUsrtCjm2TBW dTWE0sHZ9bK2j DIKfQGtja1D8eFH9M4Age cMgml4tc9pmHADwQWfbW9 7tiGCws3P2WVSanNS1PUH qsYriDxEpdJ55 Oyc+FEMoeMcsc8YkFwtty 0woc5pfsAt8PfpbENZqpi LweRuhOSN3j2WxSl9aMKT grCB5fZC4pX5d OuBiGfZ1RUaxY157EoMic QLdRnpwX30xV9FyoVY+PH ZaTim2AXImpYrjUP7iJ9V hZGRpbmctbGVm yJgpBX9hEBLyhjvvXTJrw M7wZQXuE6d3SqZtQxK2XC sfW8BjNSJzvxmnUj09fF4 aKeTaOfZ3PUak A3UgssP7GRYcoAEoEFicD FO4S70lz3V6THZxTPZeXJ L1xFQ9zK0czYqqurxjpVY mdDsgdmVydGlj BUseQRpdG445ZDVsbXlfM kNvZGluZyBEYXRlOiAgMD QvMTMvMjAyMzwvdGQ+PHR kLYS5dZkwHZUe pRLlXEvbQo6qdLuerKrsQ U0yYLAvogksOCXaoT0xEV KdoEAuhOxoAB9cGBKzyhg gs958GrFpDTW8 JPPfcZOeZ8RrzB8nYcLnZ NCwRUYsN5HgdBXxMJxzB6 84DBvzKuY9INWhfdBlD3D sLWFsaWduOiB0 b4U9Ae9Xt2YvgqahT6Jvb AWnWwVqJbpnKIn4J3LwHo wvdHI+ZQ21WJUeOC36OWs 6BCQ8bVdsLBlr HCLbR9OlvT8uKgHlEJWqA GRkOyc+PHRhYmxlIHdpZH RoPScxMDAlJyBzdHlsZT0 sPh9gMBRaLEFs nDxliMPqEvOyz8jjBODvG UjkRB5jmIruT0NxzXM9VM Eut1n6Bi88K46iR2ZqoZW +GMXpwSP6rHQ0 jS2wBoAwTmF0WAjpU273K gQnzRQeGpmdi0ffn1sdvJ z4NnM4QMCrkhYaaPxsHTC 9n1BiFk34M75g IHdpZHRoPSIxNSUiIHZhb Fhgnn9ibA5oOg1+PGNvbC H7bXX9rZ2lNrBhAsJ1YAa rC149EgXbkVZc Ymavh7qly1qksZl1ShAcB TNyobRvzWdyIZX1d1KpEk 09O0WitHygj9NvNkg4qp2 9sDJpn3P2pCE0 Z1VoUHKepbvxjPLakKxmF G6nHXScbvnzTVYdjY2wLK AiE5h4FtGdUsU3YYehD6R rrbN9RPYmaHAc HHGkoFRZiZ6qxztrj9top rssRkPfQHAoXSo1WFp0ME KxvJaoDcCvQYK5MlF2YWE 5vEJqlB5tfIfa zxqpyT4dFmf+ZFV7wBVkg JQNDN8gDzbynTA+PHRkIH Q2nRhwFWmxTCUzqI3dVCO mE6c8PhUyAdZ3 VCmaN1LontA7KGAkxZTiT JTprRYZfF7skgxsu0jtct vrIfJxZJBqPYb3GCs4QKK saWduOiBsZWZ0 FkE5NAJ4bJModK4lnZvob fxynO2tXkz+QmlydGggRG U9RHg9Q5LjXvf3PARhaQf wJK8gjKSxREnb Vk4lcIsxwBewQH6aUJXpj jcjl834MvAzo3viQBQinH HaHPugSBU4Y98im6W1CZF vAZOwKPX9hKR1 jP5kyMycfsejzWNznHxec hLdkJgiIZggAZvkK840CU LekDzkFdWaROu5C0IyJjd 7PHKiqNpjLZ9e gVMaUBlcKg8qlHsptIdyQ V4wJACfntjhl851ImIhf1 trKUDwaCUlRVyvQYC3L59 nh2I8WDZeIOAs LPS5uEK1sJ8iyJqbehvda GVmdDsgdmVydGljYWwtYW hfJ289OKGxfNtfPnZeuFz 3J6FqTpc7AJKy dTlbMR0nvPCnZQxxQo4bz CczqUflLW6bFUQziehbv9 48ScBxq2yrBEBeqHWtOUp tAVV7F23yy9T9 QTLqELXtBFW4iMG5tU6yf GlnbjogbGVmdDsgdmVydG hbGGdqUQmfG927PCDluYb nPlBhdGllbnQg LEnlGWq9B9IrXjbywPB+P X69ZSVnWX82qHXivAWml0 iepUb3NaFjZJAxBEQ0jQk nDVjhx9GcTDUl W48fnAUxn2R0BPHlvJkmq DAlRfQfwVO0eM3gIVwggj xeu2mtxgmoJnwhg8pmni8 0gE64K01vSEpa ZHRoPSIzMCUiIHZhbGlnb m0pzO5gYz9+QGGvqRN1gL T0lL6bHFXuPaH5HRvcE47 9InRvcCIvPjxj p0zns8fseCk2OmD3FFKkr sPtfWreULK1b7MyOe96L4 9sIHdpZHRoPSIyMCUiIHZ hvFgcbc2wuG7v Ii8+UPNstXT4jXQ5rU2pQ yZnRyH9FFfhJ929QgIsrJ TjJmdyL43bK2HesCG+PHR pCzb1GERfeLps UD3hpLAtTMzqNx0wEET1C pIsOzPbPZdjX0FtSDFhmh rrabrllTQ3LOBzTTYsbW8 1Ta6llZhiWBAu dBHPaL2mpjfyc7kjygmbC rAaYRHhZDr5KDq1SVVrmA woAmDyFXP1UnF0YOX5mPB ipO6inPcnkofk zJ3fJ9QvLPIoiaqlJc80o H1lHeRxFpW6RRygLru+U0 0YWICOWQFPPPKFPsNTEJ6 0UJ98iTSow6O0 zMH5Z2JpZHObigfmwjrqd SL9MWGfQKOsrN31fSYpZD imGz4zm3S6n890XFUcXAG edP96Py3lpHqr VTYbxIADhU5mdalct0wdp bybEbUcFBZdDGo8XNz4OM GqsWzdPhNuOFJ2UxZ0CYL 6uUGzbZ2kcQhm vuxjyR4mLht+MTAvMTYvM Jf7GKxydBO+WZDmAJF6jE haNIipGWHzlJ3fSINhE4s 6TaJaPuG8JOie X3TmRJIapqypFf33lR2bB pVtTuB5TSypN5HhhjO0CM JiiLFlHNddHRF8F48sp9H 7LHJlGLLjNZA9 qPL9aK3wzDhhaytjbYYeo DsgdmVydGljYWwtYWxpZ2 46IHRvcDsnPjQyIFllYXJ xWJ07AS12pETz n9Y7oUK4F9RdYOCwgxwpn flejFM7CRRyPLYaiK85yS SlMEpkUy8bx0L8e600EUY wAMVekM65Tq4f uJejJEVaxDZWeX0jakcbu 1mzsuqkMuWyQTTgRUh7ZF z4CNRstChmGmLgMHQ8OfA 1JUC2dSMkaR7n pDfebgphoG9aAxp+TWFsZ TwvdGQ+APKzLHW0aSfyEL zcKXJmhP9qNQNtT6v7VoL aOsI7XHmfR5Sy EWMfkqdwNl16zN1uWnBvM pK0JZayN9ZsvtQ8AELjwA WvAKggOFT7J21kv3U1EPB mMEAtWWT6vEM0 lK1whThzhvwldCQyqYanj pRvyPzgLFrvDQdrQ960EP MkoAwgMd20sZBdyPcsbiO 5F7CnWapivQQ+ QT05RJHvEB13rERlhXYor 5wrqKx7TmYqLAVkBTF8hZ npSEblv3DcZRAxL18vqXD hj4V0HGBvlGkx mXVuYpCwfML6pE6oAXvvj qjco4uxuwhbWmpty6oiqp 65cB98S98tESxuEVXoACT zMCUiIHZhbGln xs1byX5vYk5+LJWcbIR4t CR8rN2uKnCvYwF1BQzpK5 16ClLztJElSqaah8rkn6x ssJz6EkGgLBPd tpRhoXxnGCK5b7GtNb87N 29sIHdpZHRoPSIyMCUiIH GijCgoxr3jxR8zAi4+PC9 pr6rtqs75xP63 dHI+KBQvPGP8qXyvILzhS FMimE3oPFbdDpH9WFWdJq QguU47bPAeKIgcKk6liBn kgMgfED9eFXPm akgqr712IdFrx9zhPUOtk UCrKFeaRKQ1Q87cm1H2FK EfNPWoLFX5dUR1gM3ltFf nbjogbGVmdDsg gpDdtBzpXPbcJGrwG587F VXinJbwNtVrpYHkV3sdxg HWKC1lLsvjsXC+PHRkIHN 0eWxlPSdwYWRk fF4lCLOwK8x2ZdNiEjA8X GhuO1PaucP3FNChgBWqYG MxzVDRxN5gmhxvz0ofhmj gIzAwMDAwMDt0 PWn8ITPgcBtaUsKjWQX5U rA2KFQ6oHUxwT3gkBjkqt gptO5mMtv+RklOOjwvdGQ +NGOqZUO1jNcf QYrsUUYnxX8nMAKnF4x1I bTvFvJ2VIriC7MbltD7BY LxyOXmCTDsiKSVpX2nzak dg2ssfnifTaXk PUFqPUp6NDj5JYQlgNgdA nIbFRW3AdH0FVM8iQJvuM 8ofOkfjuvnhP9vRig+TVJ OOjwvdGQ+PHRk NLD6hYlfIAwnJOGvzL2cO WLjH6g2MwZoBsV8WHhxU1 KppaO3TCYguHKjOSNjiVT UgX3tpkpol9zh eoejVqPbCQBiCFa5HGf9P HQmjHheIzQaSOL2NoY4OU P4pMEgbC5hnIjpqxwymA4 wOyc+UYK4QMN4 HO30EZ62K6NgIbojlAKip +PHRhYmxlIHdpZHRoPS wzMCJpXwEgeEwrRA8mJg1 yZGVyLWNvbGxh cHNlOiBj (more content not included)... Normal [facility] PROF CHEM 8 (BAS METB)on Anion gap [Moles/Vol] 8.3 mmol/L Normal [facility] Comment on above: Performed By: #### I NFLUAB #### [facility] [address] [place] [address] Dr. Deepak Greenfield Calcium [Mass/Vol] 8.5 mg/dL Normal 8.5-10.1 [facility] Comment on above: Performed By: #### I NFLUAB #### [facility] [address] [address] [address] Deepak Greenfield Chloride [Moles/Vol] 104 mmol/L Normal 98-107 [facility] Comment on above: Performed By: #### I NFLUAB #### [facility] [address] [place] [address] Dr. Deepak Greenfield CO2 [Moles/Vol] 30.0 mmol/L Normal 21.0-32.0 [facility] Comment on above: Performed By: #### I NFLUAB #### [facility] [address] [address] [address] Deepak Greenfield Creatinine [Mass/Vol] 0.46 mg/dL Critically low 0.70-1.30 [facility] Comment on above: Performed By: #### I NFLUAB #### [facility] [address] [place] [address] Dr. Deepak Greenfield EGFR-AF CHADIAN >60 Normal >=60 [facility] Comment on above: Performed By: #### I NFLUAB #### [facility] [address] [place] [address] Dr. Deepak Greenfield EGFR-NON AF CHADIAN >60 Normal >=60 [facility] Comment on above: Performed By: #### I NFLUAB #### [facility] [address] [place] [address] Dr. Deepak Greenfield Glucose [Mass/Vol] 152 mg/dL Critically high 74-106 [facility] Comment on above: Performed By: #### I NFLUAB #### [facility] [address] [place] [address] Dr. Deepak Greenfield Potassium [Moles/Vol] 4.3 mmol/L Normal 3.5-5.1 [facility] Comment on above: Performed By: #### I NFLUAB #### [facility] [address] [place] [address] Dr. Deepak Greenfield Sodium [Moles/Vol] 138 mmol/L Normal 136-145 [facility] Comment on above: Performed By: #### I NFLUAB #### [facility] [address] [place] [address] Dr. Deepak Greenfield Urea nitrogen [Mass/Vol] 9.0 mg/dL Normal 7.0-18.0 [facility] Comment on above: Performed By: #### I NFLUAB #### [facility] [address] [place] [address] Dr. Deepak Greenfield Urea nitrogen/Creatinine [Mass ratio] 19.6 mg/mg Normal [facility] Comment on above: Performed By: #### I NFLUAB #### [facility] [address] [place] [address] Dr. Deepak Greenfield AMMONIAon 07-29-2022 Ammonia (P) [Moles/Vol] 69 umol/L Critically high 11-32 [facility] Comment on above: Performed By: #### A MM #### [facility] [address] [place] [address] Dr. Deepak Greenfield CBC AUTO DIFFon 07-29-2022 BASO # 0.0 103/ul Normal 0.0-0.1 [facility] Comment on above: Performed By: #### M G, CMP #### [facility] [address] [place] [address] Dr. Deepak Greenfield Basophils/100 WBC (Bld) 0.2 % Normal 0.2-2.0 [facility] Comment on above: Performed By: #### M G, CMP #### [facility] [address] [place] [address] Dr. Deepak Greenfield EO # 0.0 103/ul Normal 0.0-0.7 [facility] Comment on above: Performed By: #### M G, CMP #### [facility] [address] [place] [address] Dr. Deepak Greenfield Eosinophils/100 WBC (Bld) 0.0 % Critically low 0.9-7.0 [facility] Comment on above: Performed By: #### M G, CMP #### [facility] [address] [place] [address] Dr. Deepak Greenfield Erythrocyte distribution width (RBC) [Ratio] 13.2 % Normal 11.0-15.0 [facility] Comment on above: Performed By: #### M G, CMP #### [facility] [address] [place] [address] Dr. Deepak Greenfield Hematocrit (Bld) [Volume fraction] 33.1 % Critically low 42.0-54.0 [facility] Comment on above: Performed By: #### M G, CMP #### [facility] [address] [place] [address] Dr. Deepak Greenfield Hemoglobin (Bld) [Mass/Vol] 10.8 g/dL Critically low 14.0-18.0 [facility] Comment on above: Performed By: #### M G, CMP #### [facility] [address] [place] [address] Dr. Deepak Greenfield IG # 0.04 10e3/ul Critically high 0.00-0.03 [facility] Comment on above: Performed By: #### M G, CMP #### [facility] [address] [place] [address] Dr. Deepak Greenfield IG % 0.5 % Normal 0.0-0.5 [facility] Comment on above: Performed By: #### M G, CMP #### [facility] [address] [address] [address] Deepak Greenfield LYMPH # 1.1 103/ul Critically low 1.2-3.8 [facility] Comment on above: Performed By: #### M G, CMP #### [facility] [address] [address] [address] Deepak Greenfield Lymphocytes/100 WBC (Bld) 13.6 % Critically low 20.5-60.0 [facility] Comment on above: Performed By: #### M G, CMP #### [facility] [address] [address] [address] Deepak Greenfield MANUAL DIFF REQ NO Normal [facility] Comment on above: Performed By: #### M G, CMP #### [facility] [address] [place] [address] Dr. Deepak Greenfield MCH (RBC) [Entitic mass] 32.2 pg Normal 25.9-34.0 [facility] Comment on above: Performed By: #### M G, CMP #### [facility] [address] [place] [address] Dr. Deepak Greenfield MCHC (RBC) [Mass/Vol] 32.6 g/dL Normal 29.9-35.2 [facility] Comment on above: Performed By: #### M G, CMP #### [facility] [address] [place] [address] Dr. Deepak Greenfield MCV (RBC) [Entitic vol] 98.8 fL Critically high 80.0-94.0 [facility] Comment on above: Performed By: #### M G, CMP #### [facility] [address] [address] [address] Deepak Greenfield MONO # 0.3 103/ul Normal 0.3-0.8 [facility] Comment on above: Performed By: #### M G, CMP #### [facility]. [facility] [address] [place] [address] Dr. Deepak Greenfield Monocytes/100 WBC (Bld) 3.8 % Normal 1.7-12.0 [facility] Comment on above: Performed By: #### M G, CMP #### [facility] [address] [address] [address] Deepak Greenfield NEUT # 6.7 103/ul Critically high 1.4-6.5 [facility] Comment on above: Performed By: #### M G, CMP #### [facility] [address] [address] [address] Deepak Greenfield Neutrophils/100 WBC (Bld) 81.9 % Critically high 43.0-75.0 [facility] Comment on above: Performed By: #### M G, CMP #### [facility] [address] [address] [address] Deepak Greenfield Platelet mean volume (Bld) [Entitic vol] 9.6 fL Normal 9.5-13.5 [facility] Comment on above: Performed By: #### M G, CMP #### [facility] [address] [address] [address] Deepak Greenfield PLT 257 103/ul Normal 150-450 [facility] Comment on above: Performed By: #### M G, CMP #### [facility] [address] [place] [address] Dr. Deepak Greenfield RBC 3.35 106/ul Critically low 4.70-6.10 [facility] Comment on above: Performed By: #### M G, CMP #### [facility] [address] [address] [address] Deepak Greenfield WBC 8.2 103/ul Normal 4.0-11.0 [facility] Comment on above: Performed By: #### M G, CMP #### [facility] [address] [address] [address] Deepak Greenfield LACTATE/LACTIC ACIDon 2022 Lactate [Moles/Vol] 1.1 mmol/L Normal 0.4-2.0 [facility] Comment on above: Performed By: #### I NFLUAB #### [facility] [address] [place] [address] Dr. Deepak Greenfield PROF CHEM 8 (BAS METB)on Anion gap [Moles/Vol] 9.4 mmol/L Normal [facility] Comment on above: Performed By: #### I NFLUAB #### [facility] [address] [place] [address] Dr. Deepak Greenfield Calcium [Mass/Vol] 8.0 mg/dL Critically low 8.5-10.1 Th e [facility] Comment on above: Performed By: #### I NFLUAB #### [facility] [address] [place] [address] Dr. Deepak Greenfield Chloride [Moles/Vol] 105 mmol/L Normal 98-107 [facility] Comment on above: Performed By: #### I NFLUAB #### [facility] [address] [place] [address] Dr. Deepak Greenfield CO2 [Moles/Vol] 30.7 mmol/L Normal 21.0-32.0 [facility] Comment on above: Performed By: #### I NFLUAB #### [facility] [address] [place] [address] Dr. Deepak Greenfield Creatinine [Mass/Vol] 0.66 mg/dL Critically low 0.70-1.30 [facility] Comment on above: Performed By: #### I NFLUAB #### [facility] [address] [place] [address] Dr. Deepak Greenfield EGFR-AF CHADIAN >60 Normal >=60 [facility] Comment on above: Performed By: #### I NFLUAB #### [facility] [address] [place] [address] Dr. Deepak Greenfield EGFR-NON AF CHADIAN >60 Normal >=60 [facility] Comment on above: Performed By: #### I NFLUAB #### [facility] [address] [place] [address] Dr. Deepak Greenfield Glucose [Mass/Vol] 177 mg/dL Critically high 74-106 [facility] Comment on above: Performed By: #### I NFLUAB #### [facility] [address] [place] [address] Dr. Deepak Greenfield Potassium [Moles/Vol] 4.1 mmol/L Normal 3.5-5.1 [facility] Comment on above: Performed By: #### I NFLUAB #### [facility] [address] [place] [address] Dr. Deepak Greenfield Sodium [Moles/Vol] 141 mmol/L Normal 136-145 [facility] Comment on above: Performed By: #### I NFLUAB #### [facility] [address] [place] [address] Dr. Deepak Greenfield Urea nitrogen [Mass/Vol] 9.0 mg/dL Normal 7.0-18.0 [facility] Comment on above: Performed By: #### I NFLUAB #### [facility] [address] [place] [address] Dr. Deepak Greenfield Urea nitrogen/Creatinine [Mass ratio] 13.6 mg/mg Normal [facility] Comment on above: Performed By: #### I NFLUAB #### [facility] [address] [place] [address] Dr. Deepak Greenfield AMMONIAon 07-28-2022 Ammonia (P) [Moles/Vol] 68 umol/L Critically high 11-32 [facility] Comment on above: Performed By: #### B MP #### [facility] [address] [place] [address] Dr. Deepak Greenfield CBC AUTO DIFFon 07-28-2022 BASO # 0.0 103/ul Normal 0.0-0.1 [facility] Comment on above: Performed By: #### C BC #### [facility] [address] [place] [address] Dr. Deepak Greenfield Basophils/100 WBC (Bld) 0.3 % Normal 0.2-2.0 [facility] Comment on above: Performed By: #### C BC #### [facility] [address] [place] [address] Dr. Deepak Greenfield EO # 0.0 103/ul Normal 0.0-0.7 [facility] Comment on above: Performed By: #### C BC #### [facility] [address] [place] [address] Dr. Deepak Greenfield Eosinophils/100 WBC (Bld) 0.0 % Critically low 0.9-7.0 [facility] Comment on above: Performed By: #### C BC #### [facility] [address] [place] [address] Dr. Deepak Greenfield Erythrocyte distribution width (RBC) [Ratio] 13.3 % Normal 11.0-15.0 [facility] Comment on above: Performed By: #### C BC #### [facility] [address] [place] [address] Dr. Deepak Greenfield Hematocrit (Bld) [Volume fraction] 37.0 % Critically low 42.0-54.0 [facility] Comment on above: Performed By: #### C BC #### [facility] [address] [place] [address] Dr. Deepak Greenfield Hemoglobin (Bld) [Mass/Vol] 12.3 g/dL Critically low 14.0-18.0 [facility] Comment on above: Performed By: #### C BC #### [facility] [address] [place] [address] Dr. Deepak Greenfield IG # 0.06 10e3/ul Critically high 0.00-0.03 [facility] Comment on above: Performed By: #### C BC #### [facility] [address] [place] [address] Dr. Deepak Greenfield IG % 0.5 % Normal 0.0-0.5 [facility] Comment on above: Performed By: #### C BC #### [facility] [address] [place] [address] Dr. Deepak Greenfield LYMPH # 2.9 103/ul Normal 1.2-3.8 [facility] Comment on above: Performed By: #### C BC #### [facility] [address] [place] [address] Dr. Deepak Greenfield Lymphocytes/100 WBC (Bld) 23.5 % Normal 20.5-60.0 [facility] Comment on above: Performed By: #### C BC #### [facility] [address] [place] [address] Dr. Deepak Greenfield MANUAL DIFF REQ NO Normal [facility] Comment on above: Performed By: #### C BC #### [facility] [address] [place] [address] Dr. Deepak Greenfield MCH (RBC) [Entitic mass] 32.4 pg Normal 25.9-34.0 [facility] Comment on above: Performed By: #### C BC #### [facility] [address] [place] [address] Dr. Deepak Greenfield MCHC (RBC) [Mass/Vol] 33.2 g/dL Normal 29.9-35.2 The [facility] Comment on above: Performed By: #### C BC #### [facility] [address] [place] [address] Dr. Deepak Greenfield MCV (RBC) [Entitic vol] 97.4 fL Critically high 80.0-94.0 [facility] Comment on above: Performed By: #### C BC #### [facility] [address] [place] [address] Dr. Deepak Greenfield MONO # 1.0 103/ul Critically high 0.3-0.8 [facility] Comment on above: Performed By: #### C BC #### [facility] [address] [place] [address] Dr. Deepak Greenfield Monocytes/100 WBC (Bld) 8.0 % Normal 1.7-12.0 [facility] Comment on above: Performed By: #### C BC #### [facility] [address] [place] [address] Dr. Deepak Greenfield NEUT # 8.3 103/ul Critically high 1.4-6.5 [facility] Comment on above: Performed By: #### C BC #### [facility] [address] [place] [address] Dr. Deepak Greenfield Neutrophils/100 WBC (Bld) 67.7 % Normal 43.0-75.0 [facility] Comment on above: Performed By: #### C BC #### [facility] [address] [place] [address] Dr. Deepak Greenfield Platelet mean volume (Bld) [Entitic vol] 9.7 fL Normal 9.5-13.5 [facility] Comment on above: Performed By: #### C BC #### [facility] [address] [place] [address] Dr. Deepak Greenfield PLT 325 103/ul Normal 150-450 [facility] Comment on above: Performed By: #### C BC #### [facility] [address] [place] [address] Dr. Deepak Greenfield RBC 3.80 106/ul Critically low 4.70-6.10 [facility] Comment on above: Performed By: #### C BC #### [facility] [address] [place] [address] Dr. Deepak Greenfield WBC 12.2 103/ul Critically high 4.0-11.0 [facility] Comment on above: Performed By: #### C BC #### [facility] [address] [place] [address] Dr. Deepak Greenfield CULTURE BLOODon 07-28-2022 Microscopic examination of blood, culture Culture Observations: NO GROWTH AT 5 DAYS. Normal [facility] Comment on above: Performed By: #### B LDCX2 #### [facility] [address] [place] [address] Dr. Deepak Greenfield Microscopic examination of blood, culture Culture Observations: NO GROWTH AT 5 DAYS. Normal [facility] Comment on above: Performed By: #### C BC #### [facility] [address] [place] [address] Dr. Deepak Greenfield LACTATE/LACTIC ACIDon 2022 Lactate [Moles/Vol] 2.5 mmol/L Critically high 0.4-2.0 [facility] Comment on above: Performed By: #### C VDTBH #### [facility] [address] [place] [address] Dr. Deepak Greenfield PROF 14(COMP METB)on 023 Albumin [Mass/Vol] 3.1 g/dL Critically low 3.4-5.0 [facility] Comment on above: Performed By: #### C BC #### [facility] [address] [place] [address] Dr. Deepak Greenfield Albumin/Globulin [Mass ratio] 0.7 {ratio} Normal [facility] Comment on above: Performed By: #### C BC #### [facility] [address] [address] [address] Deepak Greenfield ALP [Catalytic activity/Vol] 51 U/L Normal 46-116 [facility] Comment on above: Performed By: #### C BC #### [facility] [address] [place] [address] Dr. Deepak Greenfield ALT [Catalytic activity/Vol] 106 U/L Critically high 16-63 [facility] Comment on above: Performed By: #### C BC #### [facility] [address] [place] [address] Dr. Deepak Greenfield Anion gap [Moles/Vol] 14.2 mmol/L Normal [facility] Comment on above: Performed By: #### C BC #### [facility] [address] [place] [address] Dr. Deepak Greenfield AST [Catalytic activity/Vol] 81 U/L Critically high 15-37 [facility] Comment on above: Performed By: #### C BC #### [facility] [address] [place] [address] Dr. Deepak Greenfield Bilirubin [Mass/Vol] 0.4 mg/dL Normal 0.2-1.0 [facility] Comment on above: Performed By: #### C BC #### [facility] [address] [place] [address] Dr. Deepak Greenfield Calcium [Mass/Vol] 8.9 mg/dL Normal 8.5-10.[address] [facility] Comment on above: Performed By: #### C BC #### [facility] [address] [place] [address] Dr. Deepak Greenfield Chloride [Moles/Vol] 105 mmol/L Normal 98-107 [facility] Comment on above: Performed By: #### C BC #### [facility] [address] [place] [address] Dr. Deepak Greenfield CO2 [Moles/Vol] 27.9 mmol/L Normal 21.0-32.0 [facility] Comment on above: Performed By: #### C BC #### [facility] [address] [place] [address] Dr. Deepak Greenfield Creatinine [Mass/Vol] 0.77 mg/dL Normal 0.70-1.30 [facility] Comment on above: Performed By: #### C BC #### [facility] [address] [place] [address] Dr. Deepak Greenfield EGFR-AF CHADIAN >60 Normal >=60 [facility] Comment on above: Performed By: #### C BC #### [facility] [address] [place] [address] Dr. Deepak Greenfield EGFR-NON AF CHADIAN >60 Normal >=60 [facility] Comment on above: Performed By: #### C BC #### [facility] [address] [place] [address] Dr. Deepak Greenfield Globulin (S) [Mass/Vol] 4.3 g/dL Normal [facility] Comment on above: Performed By: #### C BC #### [facility] [address] [place] [address] Dr. Deepak Greenfield Glucose [Mass/Vol] 162 mg/dL Critically high 74-106 [facility] Comment on above: Performed By: #### C BC #### [facility] [address] [place] [address] Dr. Deepak Greenfield Potassium [Moles/Vol] 4.1 mmol/L Normal 3.5-5.1 [facility] Comment on above: Performed By: #### C BC #### [facility] [address] [place] [address] Dr. Deepak Greenfield Protein [Mass/Vol] 7.4 g/dL Normal 6.4-8.[address] [facility] Comment on above: Performed By: #### C BC #### [facility] [address] [place] [address] Dr. Deepak Greenfield Sodium [Moles/Vol] 143 mmol/L Normal 136-145 [facility] Comment on above: Performed By: #### C BC #### [facility] [address] [place] [address] Dr. Deepak Greenfield Urea nitrogen [Mass/Vol] 12.0 mg/dL Normal 7.0-18.0 [facility] Comment on above: Performed By: #### C BC #### [facility] [address] [place] [address] Dr. Deepak Greenfield Urea nitrogen/Creatinine [Mass ratio] 15.6 mg/mg Normal [facility] Comment on above: Performed By: #### C BC #### [facility] [address] [place] [address] Dr. Deepak Greenfield RESPIRATORY PANEL PLUSon Adenovirus Not detected Normal NOT DETECTED [facility] Comment on above: Performed By: #### B MP #### [facility] [address] [place] [address] Dr. Deepak Ocampo Parapertusis Not detected Normal NOT DETECTED [facility] Comment on above: Performed By: #### B MP #### [facility] [address] [place] [address] Dr. Deepak Ocampo Pertussis Not detected Normal NOT DETECTED [facility] Comment on above: Performed By: #### B MP #### [facility] [address] [place] [address] Dr. Deepak Greenfield Chlamydia Pneumoniae Not detected Normal NOT DETECTED [facility] Comment on above: Performed By: #### B MP #### [facility] [address] [place] [address] Dr. Deepak Greenfield Coronavirus 229E Not detected Normal NOT DETECTED [facility] Comment on above: Performed By: #### B MP #### [facility] [address] [place] [address] Dr. Deepak Greenfield Coronavirus HKU1 Not detected Normal NOT DETECTED [facility] Comment on above: Performed By: #### B MP #### [facility] [address] [place] [address] Dr. Deepak Greenfield Coronavirus NL63 Not detected Normal NOT DETECTED [facility] Comment on above: Performed By: #### B MP #### [facility] [address] [address] [address] Deepak Greenfield Coronavirus OC43 Not detected Normal NOT DETECTED [facility] Comment on above: Performed By: #### B MP #### [facility] [address] [address] [address] Deepak Greenfield Influenza A H1 Not detected Normal NOT DETECTED [facility] Comment on above: Performed By: #### B MP #### [facility] [address] [address] [address] Deepak Greenfield Influenza A H1 2009 Not detected Normal NOT DETECTED [facility] Comment on above: Performed By: #### B MP #### [facility] [address] [address] [address] Deepak Greenfield Influenza A H3 Not detected Normal NOT DETECTED [facility] Comment on above: Performed By: #### B MP #### [facility] [address] [address] [address] Deepak Greenfield Influenza B Not detected Normal NOT DETECTED [facility] Comment on above: Performed By: #### B MP #### [facility] [address] [address] [address] Deepak Greenfield Metapneumovirus Detected Abnormal NOT DETECTED [facility] Comment on above: Performed By: #### B MP #### [facility] [address] [address] [address] Deepak Greenfield Mycoplas. Pneumoniae Not detected Normal NOT DETECTED [facility] Comment on above: Performed By: #### B MP #### [facility] [address] [address] [address] Deepak Greenfield Parainfluenza 1 Not detected Normal NOT DETECTED [facility] Comment on above: Performed By: #### B MP #### [facility] [address] [address] [address] Deepak Greenfield Parainfluenza 2 Not detected Normal NOT DETECTED [facility] Comment on above: Performed By: #### B MP #### [facility] [address] [address] [address] Deepak Greenfield Parainfluenza 3 Not detected Normal NOT DETECTED [facility] Comment on above: Performed By: #### B MP #### [facility] [address] [place] [address] Dr. Deepak Greenfield Parainfluenza 4 Not detected Normal NOT DETECTED [facility] Comment on above: Performed By: #### B MP #### [facility] [address] [address] [address] Deepak Greenfield Rhino/Enterovirus Not detected Normal NOT DETECTED [facility] Comment on above: Performed By: #### B MP #### [facility] [address] [place] [address] Dr. Deepak Greenfield RP2 Header 1 RESPIRATORY PANEL: VIRUSES Normal [facility] Comment on above: Performed By: #### B MP #### [facility] [address] [place] [address] Dr. Deepak Greenfield RP2 Header 2 RESPIRATORY PANEL: BACTERIA Normal [facility] Comment on above: Performed By: #### B MP #### [facility] [address] [place] [address] Dr. Deepak Greenfield RSV Not detected Normal NOT DETECTED [facility] Comment on above: Performed By: #### B MP #### [facility] [address] [place] [address] Dr. Deepak Greenfield SARS-CoV-2 (COVID-19) RNA CINDY+probe Ql (Unsp spec) Not detected Normal NOT DETECTED [facility] Comment on above: Performed By: #### B MP #### [facility] [address] [place] [address] Dr. Deepak Greenfield XR CHEST 1 Von [...] Akua PEREZ Date: 2022-07-28 20:23 Normal [facility] AMMONIAon 07-27-2022 Ammonia (P) [Moles/Vol] 76 umol/L Critically high 11-32 [facility] Comment on above: Performed By: #### M G, CMP #### [facility] [address] [place] [address] Dr. Deepak Greenfield CBC W MANUAL DIFFon 07-28-19 ATYPICAL LYMPH # Normal [facility] Comment on above: Performed By: #### M G, CMP #### [facility] [address] [place] [address] Dr. Deepak Greenfield ATYPICAL LYMPH % Normal [facility] Comment on above: Performed By: #### M G, CMP #### [facility] [address] [place] [address] Dr. Deepak Greenfield BAND # 0.4 103/ul Critically high 0.0-0.3 [facility] Comment on above: Performed By: #### M G, CMP #### [facility] [address] [place] [address] Dr. Deepak Greenfield BAND % 4 % Normal 0-5 [facility] Comment on above: Performed By: #### M G, CMP #### [facility] [address] [place] [address] Dr. Deepak Greenfield BASOM # 0.00 103/ul Normal 0.00-0.10 [facility] Comment on above: Performed By: #### M G, CMP #### [facility] [address] [place] [address] Dr. Deepak Greenfield BASOM % 0.0 % Critically low 0.2-2.0 [facility] Comment on above: Performed By: #### M G, CMP #### [facility] [address] [place] [address] Dr. Deepak Greenfield BLAST # Normal [facility] Comment on above: Performed By: #### M G, CMP #### [facility] [address] [place] [address] Dr. Deepak Greenfield BLAST % Normal [facility] Comment on above: Performed By: #### M G, CMP #### [facility] [address] [address] [address] Deepak Greenfield CORRECTED WBC Normal 4.0-11.0 [facility] Comment on above: Performed By: #### M G, CMP #### [facility] [address] [place] [address] Dr. Deepak Greenfield EOS # 0.00 103/ul Normal 0.00-0.70 [facility] Comment on above: Performed By: #### M G, CMP #### [facility] [address] [place] [address] Dr. Deepak Greenfield EOS% 0.0 % Critically low 0.9-7.0 [facility] Comment on above: Performed By: #### M G, CMP #### [facility] [address] [place] [address] Dr. Deepak Greenfield HCT 29.6 % Critically low 42.0-54.0 [facility] Comment on above: Performed By: #### M G, CMP #### [facility] [address] [place] [address] Dr. Deepak Greenfield HGB 10.4 g/dl Critically low 14.0-18.0 [facility] Comment on above: Performed By: #### M G, CMP #### [facility] [address] [place] [address] Dr. Deepak Greenfield LYMPHM # 0.71 103/ul Critically low 1.20-3.80 [facility] Comment on above: Performed By: #### M G, CMP #### [facility] [address] [place] [address] Dr. Deepak Greenfield LYMPHM% 8.0 % Critically low 20.5-60.0 [facility] Comment on above: Performed By: #### M G, CMP #### [facility] [address] [place] [address] Dr. Deepak Greenfield MCH 33.0 pg Normal 25.9-34.0 [facility] Comment on above: Performed By: #### M G, CMP #### [facility] [address] [place] [address] Dr. Deepak [place] MCHC 35.1 g/dl Normal 29.9-35.2 [facility] Comment on above: Performed By: #### M G, CMP #### [facility] [address] [place] [address] Dr. Deepak [place] MCV 94.0 fL Normal 80.0-94.0 [facility] Comment on above: Performed By: #### M G, CMP #### [facility] [address] [place] [address] Dr. Deepak [place] METAMYELOCYTE # Normal [facility] Comment on above: Performed By: #### M G, CMP #### [facility] [address] [place] [address] Dr. Deepak [place] METAMYELOCYTE % Normal [facility] Comment on above: Performed By: #### M G, CMP #### [facility] [address] [place] [address] Dr. Deepak [place] MONOM# 0.71 103/ul Normal 0.30-0.80 [facility] Comment on above: Performed By: #### M G, CMP #### [facility] [address] [place] [address] Dr. Deepak [place] MONOM% 8.0 % Normal 1.7-12.0 [facility] Comment on above: Performed By: #### M G, CMP #### [facility] [address] [place] [address] Dr. Deepak [place] MPV 9.6 fL Normal 9.5-13.5 [facility] Comment on above: Performed By: #### M G, CMP #### [facility] [address] [address] [address] Deepak [place] MYELOCYTE # Normal [facility] Comment on above: Performed By: #### M G, CMP #### [facility] [address] [address] [address] Deepak [place] MYELOCYTE % Normal [facility] Comment on above: Performed By: #### M G, CMP #### [facility] [address] [address] [address] Deepak [place] NRBC Normal [facility] Comment on above: Performed By: #### M G, CMP #### [facility] [address] [address] [address] Deepak [place] PLT 267 103/ul Normal 150-450 [facility] Comment on above: Performed By: #### M G, CMP #### [facility] [address] [place] [address] Dr. Deepak [place] RBC 3.15 106/ul Critically low 4.70-6.10 [facility] Comment on above: Performed By: #### M G, CMP #### [facility] [address] [place] [address] Dr. Deepak [place] RDW 12.9 % Normal 11.0-15.0 [facility] Comment on above: Performed By: #### M G, CMP #### [facility] [address] [place] [address] Dr. Deepak [place] SEG # 7.12 103/ul Critically high 1.40-6.50 [facility] Comment on above: Performed By: #### M G, CMP #### [facility] [address] [place] [address] Dr. Deepak [place] SEG % 80.0 % Critically high 43.0-75.0 [facility] Comment on above: Performed By: #### M G, CMP #### [facility] [address] [place] [address] Dr. Deepak [place] WBC 8.9 103/ul Normal 4.0-11.0 [facility] Comment on above: Performed By: #### M G, CMP #### [facility] [address] [address] [address] Deepak [place] PROF CHEM 8 (BAS METB)on Anion gap [Moles/Vol] 12.4 mmol/L Normal [facility] Comment on above: Performed By: #### C BC #### [facility] [address] [address] [address] Deepak [place] Calcium [Mass/Vol] 8.2 mg/dL Critically low 8.5-10.1 [facility] Comment on above: Performed By: #### C BC #### [facility] [address] [place] [address] Dr. Deepak [place] Chloride [Moles/Vol] 101 mmol/L Normal 98-107 [facility] Comment on above: Performed By: #### C BC #### [facility] [address] [place] [address] Dr. Deepak [place] CO2 [Moles/Vol] 25.0 mmol/L Normal 21.0-32.0 [facility] Comment on above: Performed By: #### C BC #### [facility] [address] [place] [address] Dr. Deepak [place] Creatinine [Mass/Vol] 0.53 mg/dL Critically low 0.70-1.30 [facility] Comment on above: Performed By: #### C BC #### [facility] [address] [place] [address] Dr. Deepak [place] EGFR-AF CHADIAN >60 Normal >=60 [facility] Comment on above: Performed By: #### C BC #### [facility] [address] [place] [address] Dr. Deepak rGeenfield EGFR-NON AF CHADIAN >60 Normal >=60 [facility] Comment on above: Performed By: #### C BC #### [facility] [address] [place] [address] Dr. Deepak [place] Glucose [Mass/Vol] 161 mg/dL Critically high 74-106 [facility] Comment on above: Performed By: #### C BC #### [facility] [address] [place] [address] Dr. Deepak [place] Potassium [Moles/Vol] 4.4 mmol/L Normal 3.5-5.1 [facility] Comment on above: Performed By: #### C BC #### [facility] [address] [address] [address] Deepak [place] Sodium [Moles/Vol] 134 mmol/L Critically low 136-145 [facility] Comment on above: Performed By: #### C BC #### [facility] [address] [address] [address] Deepak [place] Urea nitrogen [Mass/Vol] 13.0 mg/dL Normal 7.0-18.0 [facility] Comment on above: Performed By: #### C BC #### [facility] [address] [place] [address] Dr. Deepak [place] Urea nitrogen/Creatinine [Mass ratio] 24.5 mg/mg Normal [facility] Comment on above: Performed By: #### C BC #### [facility] [address] [place] [address] Dr. Deepak [place] AMMONIAon 07-26-2022 Ammonia (P) [Moles/Vol] 56 umol/L Critically high 11-32 [facility] Comment on above: Performed By: #### M G, CMP #### [facility] [address] [place] [address] Dr. Deepak [place] CARDIAC BEATRIS ADMITon 023 CK [Catalytic activity/Vol] 83 U/L Normal 39-308 [facility] Comment on above: Performed By: #### B MP #### [facility] [address] [place] [address] Dr. Deepak [place] CK.MB [Mass/Vol] 0.86 ng/mL Normal <=3.60 [facility] Comment on above: Performed By: #### B MP #### [facility] [address] [place] [address] Dr. Deepak [place] HSTROP 7.4 pg/mL Normal 4.0-76.1 [facility] Comment on above: Result Comment: CUT- OFF POINTS HAVE BEEN ESTABLISHED BASED ON THE FOURTH UNIVERSAL DEFINITIONS OF MYOCARDIAL INFARCTION. THE UPPER REFERENCE LIMIT (URL) OF TROPONIN, DEFINED THE 99TH PERCENTILE OF cTnI DISTRIBUTION IN A REFERENCE POPULATION, HAS BEEN CONFIRMED THE DECISION THRESHOLD FOR MD DIAGNOSIS. Performed By: #### B MP #### [facility] [address] [place] [address] Dr. Deepak [place] VALE 46 ng/mL Normal 16-96 [facility] Comment on above: Performed By: #### B MP #### [facility] [address] [place] [address] Dr. Deepak [place] CBC AUTO DIFFon 07-26-2022 BASO # 0.1 103/ul Normal 0.0-0.1 [facility] Comment on above: Performed By: #### M G, CMP #### [facility] [address] [place] [address] Dr. Deepak [place] Basophils/100 WBC (Bld) 0.5 % Normal 0.2-2.0 [facility] Comment on above: Performed By: #### M G, CMP #### [facility] [address] [place] [address] Dr. Deepak [place]field EO # 0.2 103/ul Normal 0.0-0.7 [facility] Comment on above: Performed By: #### M G, CMP #### [facility] [address] [place] [address] Dr. Deepak [place] Eosinophils/100 WBC (Bld) 2.1 % Normal 0.9-7.0 [facility] Comment on above: Performed By: #### M G, CMP #### [facility] [address] [place] [address] Dr. Deepak [place] Erythrocyte distribution width (RBC) [Ratio] 13.2 % Normal 11.0-15.0 [facility] Comment on above: Performed By: #### M G, CMP #### [facility] [address] [place] [address] Dr. Deepak [place] Hematocrit (Bld) [Volume fraction] 36.7 % Critically low 42.0-54.0 [facility] Comment on above: Performed By: #### M G, CMP #### [facility] [address] [place] [address] Dr. Deepak [place] Hemoglobin (Bld) [Mass/Vol] 12.4 g/dL Critically low 14.0-18.0 [facility] Comment on above: Performed By: #### M G, CMP #### [facility] [address] [place] [address] Dr. Deepak [place] IG # 0.04 10e3/ul Critically high 0.00-0.03 [facility] Comment on above: Performed By: #### M G, CMP #### [facility] [address] [place] [address] Dr. Deepak [place] IG % 0.4 % Normal 0.0-0.5 [facility] Comment on above: Performed By: #### M G, CMP #### [facility] [address] [place] [address] Dr. Deepak [place] LYMPH # 1.7 103/ul Normal 1.2-3.8 [facility] Comment on above: Performed By: #### M G, CMP #### [facility] [address] [place] [address] Dr. Deepak [place] Lymphocytes/100 WBC (Bld) 15.6 % Critically low 20.5-60.0 [facility] Comment on above: Performed By: #### M G, CMP #### [facility] [address] [place] [address] Dr. Deepak [place] MANUAL DIFF REQ NO Normal [facility] Comment on above: Performed By: #### M G, CMP #### [facility] [address] [place] [address] Dr. Deepak [place] MCH (RBC) [Entitic mass] 32.5 pg Normal 25.9-34.0 [facility] Comment on above: Performed By: #### M G, CMP #### [facility] [address] [place] [address] Dr. Deepak [place] MCHC (RBC) [Mass/Vol] 33.8 g/dL Normal 29.9-35.2 [facility] Comment on above: Performed By: #### M G, CMP #### [facility] [address] [place] [address] Dr. Deepak [place] MCV (RBC) [Entitic vol] 96.3 fL Critically high 80.0-94.0 [facility] Comment on above: Performed By: #### M G, CMP #### [facility] [address] [place] [address] Dr. Deepak Greenfield MONO # 1.4 103/ul Critically high 0.3-0.8 [facility] Comment on above: Performed By: #### M G, CMP #### [facility] [address] [place] [address] Dr. Deepak Greenfield Monocytes/100 WBC (Bld) 12.8 % Critically high 1.7-12.0 [facility] Comment on above: Performed By: #### M G, CMP #### [facility] [address] [place] [address] Dr. Deepak Greenfield NEUT # 7.4 103/ul Critically high 1.4-6.5 [facility] Comment on above: Performed By: #### M G, CMP #### [facility] [address] [place] [address] Dr. Deepak Greenfield Neutrophils/100 WBC (Bld) 68.6 % Normal 43.0-75.0 [facility] Comment on above: Performed By: #### M G, CMP #### [facility] [address] [place] [address] Dr. Deepak Greenfield Platelet mean volume (Bld) [Entitic vol] 9.5 fL Normal 9.5-13.5 [facility] Comment on above: Performed By: #### M G, CMP #### [facility] [address] [place] [address] Dr. Deepak Greenfield PLT 314 103/ul Normal 150-450 [facility] Comment on above: Performed By: #### M G, CMP #### [facility] [address] [place] [address] Dr. Deepak Greenfield RBC 3.81 106/ul Critically low 4.70-6.10 [facility] Comment on above: Performed By: #### M G, CMP #### [facility] [address] [address] [address] Deepak [place]field WBC 10.8 103/ul Normal 4.0-11.0 [facility] Comment on above: Performed By: #### M G, CMP #### [facility] [address] [address] [address] Deepak [place]field Covid-19 PCR ([facility])on SARS-CoV-2 (COVID-19) RNA CINDY+probe Ql (Unsp spec) Not detected Normal NOT DETECTED [facility] Comment on above: Result Comment: When [...] for this test is supported by the Subcontracts Manager of Health and Human Service's declaration that [...] used). Performed By: #### C VDTBH #### [facility] [address] [place] [address] Dr. Deepak [place]field INFLUENZA A AND B AGon 07-26 INFLUANEGH SEE BELOW Normal [facility] Comment on above: Result Comment: Nega tive for Flu A protein angiten. Infection due to Flu A cannot be ruled out. Flu A angiten in the sample may be below the detection limit of the test. Performed By: #### I NFLUAB #### [facility] [address] [address] [address] Deepak Greenfield INFLUBNEGH SEE BELOW Normal [facility] Comment on above: Result Comment: Nega tive for Flu B protein antigen. Infection due to Flu B cannot be ruled out. Flu B antigen in the sample may be below the detection limit of the test. Performed By: #### I NFLUAB #### [facility] [address] [place] [address] Dr. Deepak [place] INFLUENZA A AG Negative Normal NEGATIVE SEE COMMENT [facility] Comment on above: Performed By: #### I NFLUAB #### [facility] [address] [place] [address] Dr. Deepak Greenfield INFLUENZA B AG Negative Normal NEGATIVE SEE COMMENT [facility] Comment on above: Performed By: #### I NFLUAB #### [facility] [address] [place] [address] Dr. Deepak [place]field LACTATE/LACTIC ACIDon 2022 Lactate [Moles/Vol] 1.2 mmol/L Normal 0.4-2.0 [facility] Comment on above: Performed By: #### M G, CMP #### [facility] [address] [place] [address] Dr. Deepak Greenfield PROF 14(COMP METB)on 023 Albumin [Mass/Vol] 3.3 g/dL Critically low 3.4-5.0 [facility] Comment on above: Performed By: #### B MP #### [facility] [address] [place] [address] Dr. Deepak Greenfield Albumin/Globulin [Mass ratio] 0.8 {ratio} Normal [facility] Comment on above: Performed By: #### B MP #### [facility] [address] [place] [address] Dr. Deepak Greenfield ALP [Catalytic activity/Vol] 45 U/L Critically low 46-116 [facility] Comment on above: Performed By: #### B MP #### [facility] [address] [place] [address] Dr. Deepak Greenfield ALT [Catalytic activity/Vol] 114 U/L Critically high 16-63 [facility] Comment on above: Performed By: #### B MP #### [facility] [address] [place] [address] Dr. Deepak Greenfield Anion gap [Moles/Vol] 14.5 mmol/L Normal [facility] Comment on above: Performed By: #### B MP #### [facility] [address] [address] [address] Deepak Greenfield AST [Catalytic activity/Vol] 71 U/L Critically high 15-37 [facility] Comment on above: Performed By: #### B MP #### [facility] [address] [address] [address] Deepak Greenfield Bilirubin [Mass/Vol] 0.7 mg/dL Normal 0.2-1.0 [facility] Comment on above: Performed By: #### B MP #### [facility] [address] [address] [address] Deepak Greenfield Calcium [Mass/Vol] 9.1 mg/dL Normal 8.5-10.1 [facility] Comment on above: Performed By: #### B MP #### [facility] [address] [address] [address] Deepak Greenfield Chloride [Moles/Vol] 98 mmol/L Normal 98-107 [facility] Comment on above: Performed By: #### B MP #### [facility] [address] [address] [address] Deepak Greenfield CO2 [Moles/Vol] 27.4 mmol/L Normal 21.0-32.0 [facility] Comment on above: Performed By: #### B MP #### [facility] [address] [address] [address] Deepak Greenfield Creatinine [Mass/Vol] 0.65 mg/dL Critically low 0.70-1.30 [facility] Comment on above: Performed By: #### B MP #### [facility] [address] [address] [address] Deepak Greenfield EGFR-AF CHADIAN >60 Normal >=60 [facility] Comment on above: Performed By: #### B MP #### [facility] [address] [address] [address] Deepak Greenfield EGFR-NON AF CHADIAN >60 Normal >=60 [facility] Comment on above: Performed By: #### B MP #### [facility] [address] [address] [address] Deepak Greenfield Globulin (S) [Mass/Vol] 4.2 g/dL Normal [facility] Comment on above: Performed By: #### B MP #### [facility] [address] [address] [address] Deepak Greenfield Glucose [Mass/Vol] 105 mg/dL Normal 74-106 [facility] Comment on above: Performed By: #### B MP #### [facility] [address] [address] [address] Deepak Greenfield Potassium [Moles/Vol] 3.9 mmol/L Normal 3.5-5.1 [facility] Comment on above: Performed By: #### B MP #### [facility] [address] [address] [address] Deepak Greenfield Protein [Mass/Vol] 7.5 g/dL Normal 6.4-8.[address] [facility] Comment on above: Performed By: #### B MP #### [facility] [address] [address] [address] Deepak Greenfield Sodium [Moles/Vol] 136 mmol/L Normal 136-145 [facility] Comment on above: Performed By: #### B MP #### [facility] [address] [address] [address] Deepak Greenfield Urea nitrogen [Mass/Vol] 13.0 mg/dL Normal 7.0-18.0 [facility] Comment on above: Performed By: #### B MP #### [facility] [address] [address] [address] Deepak Greenfield Urea nitrogen/Creatinine [Mass ratio] 20.0 mg/mg Normal [facility] Comment on above: Performed By: #### B MP #### [facility] [address] [address] [address] Deepak Greenfield XR CHEST 1 Von [...] by: ANICETO GARCIA Date: 2022-07-26 12:27 Normal [facility] Consent for Treatmenton Consent for Treatment [id number] .[id number]:[address] [facility] Physician Orderon 07-23-2022 Physician Order [id number] 1.00CD:[address] [facility] XR Adult Swallowing Function w/ Videoon [...] CAMI Technologist: SARAVANAN Technical Comments Radiation Dose: atul Mcclendon in mGy = 11.70 DAP = 270.[address] [facility] AMMONIAon 06-03-2022 Ammonia (P) [Moles/Vol] 112 umol/L Critically high 11-32 [facility] Comment on above: Performed By: #### A MM #### [facility] [address] [place] [address] Dr. Deepak Greenfield DEPAKENE/ VALPROIC ACIDon DEPAKENE 94.0 ug/ml Normal 50.0-100.0 [facility] Comment on above: Performed By: #### C BC #### [facility] [address] [place] [address] Dr. Deepak Greenfield LIVER PROFILEon 06-03-2022 Albumin [Mass/Vol] 3.6 g/dL Normal 3.4-5.0 [facility] Comment on above: Performed By: #### C BC #### [facility] [address] [place] [address] Dr. Deepak Greenfield Albumin/Globulin [Mass ratio] 0.9 {ratio} Normal [facility] Comment on above: Performed By: #### C BC #### [facility] [address] [place] [address] Dr. Deepak Greenfield ALP [Catalytic activity/Vol] 55 U/L Normal 46-116 [facility] Comment on above: Performed By: #### C BC #### [facility] [address] [place] [address] Dr. Deepak Greenfield ALT [Catalytic activity/Vol] 76 U/L Critically high 16-63 [facility] Comment on above: Performed By: #### C BC #### [facility] [address] [place] [address] Dr. Deepak Greenfield AST [Catalytic activity/Vol] 51 U/L Critically high 15-37 [facility] Comment on above: Performed By: #### C BC #### [facility] [address] [place] [address] Dr. Deepak Greenfield BILI, CONJUGATED 0.1 mg/dL Normal 0.0-0.2 [facility] Comment on above: Performed By: #### C BC #### [facility] [address] [place] [address] Dr. Deepak Greenfield Bilirubin [Mass/Vol] 0.4 mg/dL Normal 0.2-1.0 [facility] Comment on above: Performed By: #### C BC #### [facility] [address] [place] [address] Dr. Deepak Greenfield Globulin (S) [Mass/Vol] 4.1 g/dL Normal [facility] Comment on above: Performed By: #### C BC #### [facility] [address] [place] [address] Dr. Deepak Greenfield Protein [Mass/Vol] 7.7 g/dL Normal 6.4-8.2 [facility] Comment on above: Performed By: #### C BC #### [facility] [address] [place] [address] Dr. Deepak Greenfield AMMONIAon 04-22-2022 Ammonia (P) [Moles/Vol] 108 umol/L Critically high [facility] Comment on above: Performed By: #### B MP #### [facility] [address] [place] [address] Dr. Deepak Greenfield CBC AUTO DIFFon 04-22-2022 BASO # 0.0 103/ul Normal 0.0-0.1 [facility] Comment on above: Performed By: #### C BC #### [facility] [address] [place] [address] Dr. Deepak Greenfield Basophils/100 WBC (Bld) 0.5 % Normal 0.2-2.0 [facility] Comment on above: Performed By: #### C BC #### [facility] [address] [place] [address] Dr. Deepak Greenfield EO # 0.1 103/ul Normal 0.0-0.7 [facility] Comment on above: Performed By: #### C BC #### [facility] [address] [place] [address] Dr. Deepak Greenfield Eosinophils/100 WBC (Bld) 1.4 % Normal 0.9-7.0 [facility] Comment on above: Performed By: #### C BC #### [facility] [address] [place] [address] Dr. Deepak Greenfield Erythrocyte distribution width (RBC) [Ratio] 14.2 % Normal 11.0-15.0 [facility] Comment on above: Performed By: #### C BC #### [facility] [address] [place] [address] Dr. Deepak Greenfield Hematocrit (Bld) [Volume fraction] 37.0 % Critically low 42.0-54.0 [facility] Comment on above: Performed By: #### C BC #### [facility] [address] [place] [address] Dr. Deepak Greenfield Hemoglobin (Bld) [Mass/Vol] 12.3 g/dL Critically low 14.0-18.0 [facility] Comment on above: Performed By: #### C BC #### [facility] [address] [place] [address] Dr. Deepak Greenfield IG # 0.00 10e3/ul Normal 0.00-0.03 [facility] Comment on above: Performed By: #### C BC #### [facility] [address] [place] [address] Dr. Deepak Greenfield IG % 0.0 % Normal 0.0-0.5 [facility] Comment on above: Performed By: #### C BC #### [facility] [address] [place] [address] Dr. Deepak Greenfield LYMPH # 3.3 103/ul Normal 1.2-3.8 [facility] Comment on above: Performed By: #### C BC #### [facility] [address] [place] [address] Dr. Deepak Greenfield Lymphocytes/100 WBC (Bld) 51.5 % Normal 20.5-60.0 [facility] Comment on above: Performed By: #### C BC #### [facility] [address] [place] [address] Dr. Deepak Greenfield MANUAL DIFF REQ NO Normal [facility] Comment on above: Performed By: #### C BC #### [facility] [address] [place] [address] Dr. Deepak Greenfield MCH (RBC) [Entitic mass] 32.2 pg Normal 25.9-34.0 [facility] Comment on above: Performed By: #### C BC #### [facility] [address] [place] [address] Dr. Deepak Greenfield MCHC (RBC) [Mass/Vol] 33.2 g/dL Normal 29.9-35.2 [facility] Comment on above: Performed By: #### C BC #### [facility] [address] [place] [address] Dr. Deepak Greenfield MCV (RBC) [Entitic vol] 96.9 fL Critically high 80.0-94.0 [facility] Comment on above: Performed By: #### C BC #### [facility] [address] [place] [address] Dr. Deepak Greenfield MONO # 0.6 103/ul Normal 0.3-0.8 [facility] Comment on above: Performed By: #### C BC #### [facility] [address] [place] [address] Dr. Deepak Greenfield Monocytes/100 WBC (Bld) 9.7 % Normal 1.7-12.0 [facility] Comment on above: Performed By: #### C BC #### [facility] [address] [place] [address] Dr. Deepak Greenfield NEUT # 2.4 103/ul Normal 1.4-6.5 [facility] Comment on above: Performed By: #### C BC #### [facility] [address] [place] [address] Dr. Deepak Greenfield Neutrophils/100 WBC (Bld) 36.9 % Critically low 43.0-75.0 [facility] Comment on above: Performed By: #### C BC #### [facility] [address] [place] [address] Dr. Deepak Greenfield Platelet mean volume (Bld) [Entitic vol] 10.2 fL Normal 9.5-13.5 [facility] Comment on above: Performed By: #### C BC #### [facility] [address] [place] [address] Dr. Deepak Greenfield PLT 248 103/ul Normal 150-450 [facility] Comment on above: Performed By: #### C BC #### [facility] [address] [place] [address] Dr. Deepak Greenfield RBC 3.82 106/ul Critically low 4.70-6.10 [facility] Comment on above: Performed By: #### C BC #### [facility] [address] [place] [address] Dr. Deepak Greenfield WBC 6.5 103/ul Normal 4.0-11.0 [facility] Comment on above: Performed By: #### C BC #### [facility] [address] [place] [address] Dr. Deepak Greenfield FERRITINon 04-22-2022 Ferritin [Mass/Vol] 152.0 ng/mL Normal 26.0-388.0 [facility] Comment on above: Performed By: #### M G, CMP #### [facility] [address] [place] [address] Dr. Deepak Greenfield IRONon 04-22-2022 Iron [Mass/Vol] 136.0 ug/dL Normal 65.0-175.0 [facility] Comment on above: Performed By: #### M G, CMP #### [facility] [address] [place] [address] Dr. Deepak Greenfield MAGNESIUMon 04-22-2022 Magnesium [Mass/Vol] 1.6 mg/dL Critically low 1.8-2.4 [facility] Comment on above: Performed By: #### I NFLUAB #### [facility] [address] [place] [address] Dr. Deepak Greenfield VITAMIN B12on 04-22-2022 Cobalamin (Vitamin B12) [Mass/Vol] 545.0 pg/mL Normal 193.0-986.0 [facility] Comment on above: Performed By: #### M G, CMP #### [facility] [address] [place] [address] Dr. Deepak Greenfield CBC AUTO DIFFon 03-19-2022 BASO # 0.0 103/ul Normal 0.0-0.1 [facility] Comment on above: Performed By: #### M G, CMP #### [facility] [address] [place] [address] Dr. Deepak Greenfield Basophils/100 WBC (Bld) 0.5 % Normal 0.2-2.0 [facility] Comment on above: Performed By: #### M G, CMP #### [facility] [address] [place] [address] Dr. Deepak Greenfeild EO # 0.2 103/ul Normal 0.0-0.7 [facility] Comment on above: Performed By: #### M G, CMP #### [facility] [address] [place] [address] Dr. Deepak Greenfield Eosinophils/100 WBC (Bld) 2.0 % Normal 0.9-7.0 [facility] Comment on above: Performed By: #### M G, CMP #### [facility] [address] [place] [address] Dr. Deepak Greenfield Erythrocyte distribution width (RBC) [Ratio] 13.5 % Normal 11.0-15.0 [facility] Comment on above: Performed By: #### M G, CMP #### [facility] [address] [place] [address] Dr. Deepak Greenfield Hematocrit (Bld) [Volume fraction] 38.5 % Critically low 42.0-54.0 [facility] Comment on above: Performed By: #### M G, CMP #### [facility] [address] [place] [address] Dr. Deepak Greenfield Hemoglobin (Bld) [Mass/Vol] 12.6 g/dL Critically low 14.0-18.0 [facility] Comment on above: Performed By: #### M G, CMP #### [facility] [address] [place] [address] Dr. Deepak Greenfield IG # 0.02 10e3/ul Normal 0.00-0.03 [facility] Comment on above: Performed By: #### M G, CMP #### [facility] [address] [address] [address] Deepak Greenfield IG % 0.2 % Normal 0.0-0.5 [facility] Comment on above: Performed By: #### M G, CMP #### [facility] [address] [address] [address] Deepak Greenfield LYMPH # 3.1 103/ul Normal 1.2-3.8 [facility] Comment on above: Performed By: #### M G, CMP #### [facility] [address] [address] [address] Deepak Greenfield Lymphocytes/100 WBC (Bld) 36.2 % Normal 20.5-60.0 [facility] Comment on above: Performed By: #### M G, CMP #### [facility] [address] [place] [address] Dr. Deepak Greenfield MANUAL DIFF REQ NO Normal [facility] Comment on above: Performed By: #### M G, CMP #### [facility] [address] [place] [address] Dr. Deepak Greenfield MCH (RBC) [Entitic mass] 32.1 pg Normal 25.9-34.0 [facility] Comment on above: Performed By: #### M G, CMP #### [facility] [address] [place] [address] Dr. Deepak Greenfield MCHC (RBC) [Mass/Vol] 32.7 g/dL Normal 29.9-35.2 [facility] Comment on above: Performed By: #### M G, CMP #### [facility] [address] [place] [address] Dr. Deepak Greenfield MCV (RBC) [Entitic vol] 98.0 fL Critically high 80.0-94.0 [facility] Comment on above: Performed By: #### M G, CMP #### [facility] [address] [place] [address] Dr. Deepak Greenfield MONO # 0.9 103/ul Critically high 0.3-0.8 [facility] Comment on above: Performed By: #### M G, CMP #### [facility] [address] [address] [address] Deepak Greenfield Monocytes/100 WBC (Bld) 10.6 % Normal 1.7-12.0 [facility] Comment on above: Performed By: #### M G, CMP #### [facility] [address] [address] [address] Deepak Greenfield NEUT # 4.3 103/ul Normal 1.4-6.5 [facility] Comment on above: Performed By: #### M G, CMP #### [facility] [address] [place] [address] Dr. Deepak Greenfield Neutrophils/100 WBC (Bld) 50.5 % Normal 43.0-75.0 [facility] Comment on above: Performed By: #### M G, CMP #### [facility] [address] [place] [address] Dr. Deepak Greenfield Platelet mean volume (Bld) [Entitic vol] 9.9 fL Normal 9.5-13.5 [facility] Comment on above: Performed By: #### M G, CMP #### [facility] [address] [place] [address] Dr. Deepak Greenfield PLT 263 103/ul Normal 150-450 [facility] Comment on above: Performed By: #### M G, CMP #### [facility] [address] [place] [address] Dr. Deepak Greenfield RBC 3.93 106/ul Critically low 4.70-6.10 [facility] Comment on above: Performed By: #### M G, CMP #### [facility] [address] [place] [address] Dr. Deepak Greenfield WBC 8.6 103/ul Normal 4.0-11.0 [facility] Comment on above: Performed By: #### M G, CMP #### [facility] [address] [place] [address] Dr. Deepak Greenfield MAGNESIUMon 03-19-2022 Magnesium [Mass/Vol] 1.5 mg/dL Critically low 1.8-2.4 [facility] Comment on above: Performed By: #### M G, CMP #### [facility] [address] [place] [address] Dr. Deepak Greenfield PROF 14(COMP METB)on 022 Albumin [Mass/Vol] 3.4 g/dL Normal 3.4-5.0 [facility] Comment on above: Performed By: #### M G, CMP #### [facility] [address] [place] [address] Dr. Deepak Greenfield Albumin/Globulin [Mass ratio] 0.9 {ratio} Normal [facility] Comment on above: Performed By: #### M G, CMP #### [facility] [address] [place] [address] Dr. Deepak Greenfield ALP [Catalytic activity/Vol] 47 U/L Normal 46-116 [facility] Comment on above: Performed By: #### M G, CMP #### [facility] [address] [place] [address] Dr. Deepak Greenfield ALT [Catalytic activity/Vol] 48 U/L Normal 16-63 [facility] Comment on above: Performed By: #### M G, CMP #### [facility] [address] [place] [address] Dr. Deepak Greenfield Anion gap [Moles/Vol] 9.5 mmol/L Normal [facility] Comment on above: Performed By: #### M G, CMP #### [facility] [address] [place] [address] Dr. Deepak Greenfield AST [Catalytic activity/Vol] 30 U/L Normal 15-37 [facility] Comment on above: Performed By: #### M G, CMP #### [facility] [address] [place] [address] Dr. Deepak Greenfield Bilirubin [Mass/Vol] 0.2 mg/dL Normal 0.2-1.0 [facility] Comment on above: Performed By: #### M G, CMP #### [facility] [address] [place] [address] Dr. Deepak Greenfield Calcium [Mass/Vol] 8.7 mg/dL Normal 8.5-10.1 [facility] Comment on above: Performed By: #### M G, CMP #### [facility] [address] [address] [address] Deepak Greenfield Chloride [Moles/Vol] 105 mmol/L Normal 98-107 [facility] Comment on above: Performed By: #### M G, CMP #### [facility] [address] [address] [address] Deepak Greenfield CO2 [Moles/Vol] 32.6 mmol/L Critically high 21.0-32.0 [facility] Comment on above: Performed By: #### M G, CMP #### [facility] [address] [place] [address] Dr. Deepak Greenfield Creatinine [Mass/Vol] 0.70 mg/dL Normal 0.70-1.30 [facility] Comment on above: Performed By: #### M G, CMP #### [facility] [address] [place] [address] Dr. Deepak Greenfield EGFR-AF CHADIAN >60 Normal >=60 [facility] Comment on above: Performed By: #### M G, CMP #### [facility] [address] [place] [address] Dr. Deepak Greenfield EGFR-NON AF CHADIAN >60 Normal >=60 [facility] Comment on above: Performed By: #### M G, CMP #### [facility] [address] [place] [address] Dr. Deepak Greenfield Globulin (S) [Mass/Vol] 3.8 g/dL Normal [facility] Comment on above: Performed By: #### M G, CMP #### [facility] [address] [place] [address] Dr. Deepak Greenfield Glucose [Mass/Vol] 98 mg/dL Normal 74-[address] [facility] Comment on above: Performed By: #### M G, CMP #### [facility] [address] [place] [address] Dr. Deepak Greenfield Potassium [Moles/Vol] 4.1 mmol/L Normal 3.5-5.1 [facility] Comment on above: Performed By: #### M G, CMP #### [facility] [address] [place] [address] Dr. Deepak Greenfield Protein [Mass/Vol] 7.2 g/dL Normal 6.4-8.[address] [facility] Comment on above: Performed By: #### M G, CMP #### [facility] [address] [place] [address] Dr. Deepak Greenfield Sodium [Moles/Vol] 143 mmol/L Normal 136-145 [facility] Comment on above: Performed By: #### M G, CMP #### [facility] [address] [place] [address] Dr. Deepak Greenfield Urea nitrogen [Mass/Vol] 10.0 mg/dL Normal 7.0-18.0 [facility] Comment on above: Performed By: #### Karishma G, CMP #### [facility] [address] [place] [address] Dr. Deepak Greenfield Urea nitrogen/Creatinine [Mass ratio] 14.3 mg/mg Normal [facility] Comment on above: Performed By: #### Karishma House, CMP #### [facility] [address] [place] [address] Dr. Deepak Greenfield VITAMIN D 25 OHon 03-19-2022 VIT D 25-OH 67.5 ng/mL Normal [facility] Comment on above: Performed By: #### Karishma House, CMP #### [facility] [address] [place] [address] Dr. Deepak Greenfield VIT D RANGES SEE BELOW Normal [facility] Comment on above: Result Comment: <20 ng/mL Vit D deficient 20 - <30 ng/mL Vit D insufficient 30 - 100 ng/mL Vit D sufficient >100 ng/mL Potential Toxicity Performed By: #### M G, CMP #### [facility] [address] [place] [address] Dr. Deepak Greenfield AMMONIAon 03-10-2022 Ammonia (P) [Moles/Vol] 36 umol/L Critically high [facility] Comment on above: Performed By: #### C BC #### [facility] [address] [place] [address] Dr. Deepak Greenfield DEPAKENE/ VALPROIC ACIDon DEPAKENE 93.5 ug/ml Normal 50.0-100.0 [facility] Comment on above: Performed By: #### B MP #### [facility] [address] [place] [address] Dr. Deepak Greenfield BNPon 01-24-2022 Natriuretic peptide B (Bld) [Mass/Vol] 183.0 pg/mL Normal <=450.0 [facility] Comment on above: Performed By: #### M G, CMP #### [facility] [address] [place] [address] Dr. Deepak Greenfield CBC AUTO DIFFon 01-24-2022 BASO # 0.0 103/ul Normal 0.0-0.1 [facility] Comment on above: Performed By: #### C VDTBH #### [facility] [address] [place] [address] Dr. Deepak Greenfield Basophils/100 WBC (Bld) 0.3 % Normal 0.2-2.0 [facility] Comment on above: Performed By: #### C VDTBH #### [facility] [address] [place] [address] Dr. Deepak Greenfield EO # 0.1 103/ul Normal 0.0-0.7 [facility] Comment on above: Performed By: #### C VDTBH #### [facility] [address] [place] [address] Dr. Deepak Greenfield Eosinophils/100 WBC (Bld) 0.4 % Critically low 0.9-7.0 [facility] Comment on above: Performed By: #### C VDTBH #### [facility] [address] [place] [address] Dr. Deepak Greenfield Erythrocyte distribution width (RBC) [Ratio] 13.6 % Normal 11.0-15.0 [facility] Comment on above: Performed By: #### C VDTBH #### [facility] [address] [place] [address] Dr. Deepak Greenfield Hematocrit (Bld) [Volume fraction] 39.3 % Critically low 42.0-54.0 [facility] Comment on above: Performed By: #### C VDTBH #### [facility] [address] [place] [address] Dr. Deepak Greenfield Hemoglobin (Bld) [Mass/Vol] 12.6 g/dL Critically low 14.0-18.0 [facility] Comment on above: Performed By: #### C VDTBH #### [facility] [address] [place] [address] Dr. Deepak Greenfield IG # 0.04 10e3/ul Critically high 0.00-0.03 [facility] Comment on above: Performed By: #### C VDTBH #### [facility] [address] [place] [address] Dr. Deepak Greenfield IG % 0.3 % Normal 0.0-0.5 [facility] Comment on above: Performed By: #### C VDTBH #### [facility] [address] [place] [address] Dr. Deepak Greenfield LYMPH # 2.4 103/ul Normal 1.2-3.8 [facility] Comment on above: Performed By: #### C VDTBH #### [facility] [address] [place] [address] Dr. Deepak Greenfield Lymphocytes/100 WBC (Bld) 16.6 % Critically low 20.5-60.0 [facility] Comment on above: Performed By: #### C VDTBH #### [facility] [address] [place] [address] Dr. Deepak Greenfield MANUAL DIFF REQ NO Normal [facility] Comment on above: Performed By: #### C VDTBH #### [facility] [address] [place] [address] Dr. Deepak Greenfield MCH (RBC) [Entitic mass] 32.0 pg Normal 25.9-34.0 [facility] Comment on above: Performed By: #### C VDTBH #### [facility] [address] [place] [address] Dr. Deepak Greenfield MCHC (RBC) [Mass/Vol] 32.1 g/dL Normal 29.9-35.2 [facility] Comment on above: Performed By: #### C VDTBH #### [facility] [address] [address] [address] Deepak Greenfield MCV (RBC) [Entitic vol] 99.7 fL Critically high 80.0-94.0 [facility] Comment on above: Performed By: #### C VDTBH #### [facility] [address] [place] [address] Dr. Deepak Greenfield MONO # 1.4 103/ul Critically high 0.3-0.8 [facility] Comment on above: Performed By: #### C VDTBH #### [facility] [address] [place] [address] Dr. Deepak Greenfield Monocytes/100 WBC (Bld) 9.8 % Normal 1.7-12.0 [facility] Comment on above: Performed By: #### C VDTBH #### [facility] [address] [place] [address] Dr. Deepak Greenfield NEUT # 10.7 103/ul Critically high 1.4-6.5 [facility] Comment on above: Performed By: #### C VDTBH #### [facility] [address] [place] [address] Dr. Deepak Greenfield Neutrophils/100 WBC (Bld) 72.6 % Normal 43.0-75.0 [facility] Comment on above: Performed By: #### C VDTBH #### [facility] [address] [address] [address] Deepak Greenfield Platelet mean volume (Bld) [Entitic vol] 10.4 fL Normal 9.5-13.5 [facility] Comment on above: Performed By: #### C VDTBH #### [facility] [address] [address] [address] Deepak Greenfield PLT 280 103/ul Normal 150-450 [facility] Comment on above: Performed By: #### C VDTBH #### [facility] [address] [address] [address] Deepak Greenfield RBC 3.94 106/ul Critically low 4.70-6.10 [facility] Comment on above: Performed By: #### C VDTBH #### [facility] [address] [address] [address] Deepak Greenfield WBC 14.7 103/ul Critically high 4.0-11.0 [facility] Comment on above: Performed By: #### C VDTBH #### [facility] [address] [address] [address] Deepak Greenfield CULTURE BLOODon 01-24-2022 Microscopic examination of blood, culture Culture Observations: No growth at 5 days. Normal [facility] Comment on above: Performed By: #### C BC #### [facility] [address] [place] [address] Dr. Deepak Greenfield Microscopic examination of blood, culture Culture Observations: No growth at 5 days. Normal [facility] Comment on above: Performed By: #### C BC #### [facility] [address] [address] [address] Deepak Greenfield Covid-19 PCR ([facility]on SARS-CoV-2 (COVID-19) RNA CINDY+probe Ql (Unsp spec) Not detected Normal NOT DETECTED [facility] Comment on above: Result Comment: When [...] for this test is supported by the Subcontracts Manager of Health and Human Service's declaration that [...] used). Performed By: #### I NFLUAB #### [facility] [address] [place] [address] Dr. Deepak Greenfield LACTATE/LACTIC ACIDon 2021 Lactate [Moles/Vol] 1.7 mmol/L Normal 0.4-1.9 [facility] Comment on above: Performed By: #### M G, CMP #### [facility] [address] [place] [address] Dr. Deepak Greenfield PROF 14(COMP METB)on 022 Albumin [Mass/Vol] 3.2 g/dL Critically low 3.4-5.0 [facility] Comment on above: Performed By: #### M G, CMP #### [facility] [address] [place] [address] Dr. Deepak Greenfield Albumin/Globulin [Mass ratio] 0.7 {ratio} Normal [facility] Comment on above: Performed By: #### M G, CMP #### [facility] [address] [place] [address] Dr. Deepak Greenfield ALP [Catalytic activity/Vol] 49 U/L Normal 46-116 [facility] Comment on above: Performed By: #### M G, CMP #### [facility] [address] [place] [address] Dr. Deepak Greenfield ALT [Catalytic activity/Vol] 41 U/L Normal 16-63 [facility] Comment on above: Performed By: #### M G, CMP #### [facility] [address] [place] [address] Dr. Deepak Greenfield Anion gap [Moles/Vol] 11.1 mmol/L Normal [facility] Comment on above: Performed By: #### M G, CMP #### [facility] [address] [place] [address] Dr. Deepak Greenfield AST [Catalytic activity/Vol] 29 U/L Normal 15-37 [facility] Comment on above: Performed By: #### M G, CMP #### [facility] [address] [place] [address] Dr. Deepak Greenfield Bilirubin [Mass/Vol] 0.5 mg/dL Normal 0.2-1.0 [facility] Comment on above: Performed By: #### M G, CMP #### [facility] [address] [place] [address] Dr. Deepak Greenfield Calcium [Mass/Vol] 9.1 mg/dL Normal 8.5-10.1 [facility] Comment on above: Performed By: #### M G, CMP #### [facility] [address] [place] [address] Dr. Deepak Greenfield Chloride [Moles/Vol] 108 mmol/L Critically high 98-107 [facility] Comment on above: Performed By: #### M G, CMP #### [facility] [address] [place] [address] Dr. Deepak Greenfield CO2 [Moles/Vol] 25.7 mmol/L Normal 21.0-32.0 [facility] Comment on above: Performed By: #### M G, CMP #### [facility] [address] [place] [address] Dr. Deepak Greenfield Creatinine [Mass/Vol] 0.89 mg/dL Normal 0.70-1.30 [facility] Comment on above: Performed By: #### M G, CMP #### [facility] [address] [place] [address] Dr. Deepak Greenfield EGFR-AF CHADIAN >60 Normal >=60 [facility] Comment on above: Performed By: #### M G, CMP #### [facility] [address] [place] [address] Dr. Deepak Greenfield EGFR-NON AF CHADIAN >60 Normal >=60 [facility] Comment on above: Performed By: #### M G, CMP #### [facility] [address] [place] [address] Dr. Deepak Greenfield Globulin (S) [Mass/Vol] 4.5 g/dL Normal [facility] Comment on above: Performed By: #### M G, CMP #### [facility] [address] [place] [address] Dr. Deepak Greenfield Glucose [Mass/Vol] 178 mg/dL Critically high 74-106 [facility] Comment on above: Performed By: #### M G, CMP #### [facility] [address] [place] [address] Dr. Deepak Greenfield Potassium [Moles/Vol] 3.8 mmol/L Normal 3.5-5.1 [facility] Comment on above: Performed By: #### M G, CMP #### [facility] [address] [place] [address] Dr. Deepak Greenfield Protein [Mass/Vol] 7.7 g/dL Normal 6.4-8.[address] [facility] Comment on above: Performed By: #### M G, CMP #### [facility] [address] [place] [address] Dr. Deepak Greenfield Sodium [Moles/Vol] 141 mmol/L Normal 136-145 [facility] Comment on above: Performed By: #### M G, CMP #### [facility] [address] [place] [address] Dr. Deepak Greenfield Urea nitrogen [Mass/Vol] 16.0 mg/dL Normal 7.0-18.0 [facility] Comment on above: Performed By: #### M G, CMP #### [facility] [address] [place] [address] Dr. Deepak Greenfield Urea nitrogen/Creatinine [Mass ratio] 18.0 mg/mg Normal [facility] Comment on above: Performed By: #### M G, CMP #### [facility] [address] [place] [address] Dr. Deepak Greenfield TROPONIN, HIGH SENSITIVITYon 01-24-2022 HSTROP 6.4 pg/mL Normal 4.0-76.1 [facility] Comment on above: Result Comment: CUT- OFF POINTS HAVE BEEN ESTABLISHED BASED ON THE FOURTH UNIVERSAL DEFINITIONS OF MYOCARDIAL INFARCTION. THE UPPER REFERENCE LIMIT (URL) OF TROPONIN, DEFINED THE 99TH PERCENTILE OF cTnI DISTRIBUTION IN A REFERENCE POPULATION, HAS BEEN CONFIRMED THE DECISION THRESHOLD FOR MD DIAGNOSIS. Performed By: #### M G, CMP #### [facility] [address] [place] [address] Dr. Deepak Greenfield XR CHEST 1 Von [...] ANICETO CROCKER Date: 2022-01-24 15:28 Normal [facility] UA RANDOM W/MICROSCOPICon BACTERIA NONE SEEN Normal NONE SEEN [facility] Comment on above: Performed By: #### C VDTBH #### [facility] [address] [place] [address] Dr. Deepak Greenfield Bilirubin Ql (U) Negative Normal NEGATIVE [facility] Comment on above: Performed By: #### C VDTBH #### [facility] [address] [place] [address] Dr. Deepak Greenfield CAST NONE SEEN Normal NONE SEEN [facility] Comment on above: Performed By: #### C VDTBH #### [facility] [address] [place] [address] Dr. Deepak Greenfield Clarity (U) CLEAR Normal CLEAR [facility] Comment on above: Performed By: #### C VDTBH #### [facility] [address] [place] [address] Dr. Deepak Greenfield Color (U) YELLOW Normal YELLOW [facility] Comment on above: Performed By: #### C VDTBH #### [facility] [address] [place] [address] Dr. Deepak Greenfield Crystals LM Nom (Urine sed) NONE SEEN Normal NONE SEEN [facility] Comment on above: Performed By: #### C VDTBH #### [facility] [address] [place] [address] Dr. Deepak Greenfield Epithelial cells LM Ql (Urine sed) RARE Normal NONE SEEN /RARE [facility] Comment on above: Performed By: #### C VDTBH #### [facility] [address] [place] [address] Dr. Deepak Greenfield Glucose Ql (U) Negative Normal NEGATIVE [facility] Comment on above: Performed By: #### C VDTBH #### [facility] [address] [place] [address] Dr. Deepak Greenfield Hemoglobin Ql (U) Negative Normal NEGATIVE [facility] Comment on above: Performed By: #### C VDTBH #### [facility] [address] [place] [address] Dr. Deepak Greenfield Ketones Ql (U) 15 mg/dl Abnormal NEGATIVE [facility] Comment on above: Performed By: #### C VDTBH #### [facility] [address] [place] [address] Dr. Deepak Greenfield LEUKOCYTES Negative Normal NEGATIVE [facility] Comment on above: Performed By: #### C VDTBH #### [facility] [address] [place] [address] Dr. Deepak Greenfield MUCOUS NONE SEEN Normal NONE SEEN [facility] Comment on above: Performed By: #### C VDTBH #### [facility] [address] [place] [address] Dr. Deepak Greenfield Nitrite Ql (U) Negative Normal NEGATIVE [facility] Comment on above: Performed By: #### C VDTBH #### [facility] [address] [place] [address] Dr. Deepak Greenfield pH (U) 6.0 [pH] Normal 5-9 [facility] Comment on above: Performed By: #### C VDTBH #### [facility] [address] [place] [address] Dr. Deepak Greenfield RBC 0-2 Normal 0-2 [facility] Comment on above: Performed By: #### C VDTBH #### [facility] [address] [place] [address] Dr. Deepak Greenfield SPEC GRAVITY 1.020 Normal 1.005-<=1.025 [facility] Comment on above: Performed By: #### C VDTBH #### [facility] [address] [place] [address] Dr. Deepak Greenfield UA PROTEIN Negative Normal NEGATIVE/ TRACE [facility] Comment on above: Performed By: #### C VDTBH #### [facility] [address] [place] [address] Dr. Deepak Greenfield Urobilinogen Qn (U) 0.2 {Ottoniel'U}/dL Normal 0.2 - 1. 0 [facility] Comment on above: Performed By: #### C VDTBH #### [facility] [address] [place] [address] Dr. Deepak Greenfield WBC NONE SEEN Normal NONE SEEN [facility] Comment on above: Performed By: #### C VDTBH #### [facility] [address] [place] [address] Dr. Deepak Greenfield ALBUMINon 01-12-2022 Albumin [Mass/Vol] 3.4 g/dL Normal 3.4-5.0 [facility] Comment on above: Performed By: #### C VDTBH #### [facility] [address] [place] [address] Dr. Deepak Greenfield ALKALINE PHOSPHAon ALP [Catalytic activity/Vol] 46 U/L Normal 46-116 [facility] Comment on above: Performed By: #### C VDTBH #### [facility] [address] [place] [address] Dr. Deepak Greenfield AMMONIAon 01-12-2022 Ammonia (P) [Moles/Vol] 93 umol/L Critically high 11-32 [facility] Comment on above: Performed By: #### I NFLUAB #### [facility] [address] [place] [address] Dr. Deepak Greenfield BILIRUBIN CONJUGATED (DIRECT )on 01-12-2022 BILI, CONJUGATED 0.1 mg/dL Normal 0.0-0.2 [facility] Comment on above: Performed By: #### C VDTBH #### [facility] [address] [place] [address] Dr. Deepak Greenfield BILIRUBIN TOTALon 01-12-2022 Bilirubin [Mass/Vol] 0.4 mg/dL Normal 0.2-1.0 [facility] Comment on above: Performed By: #### C VDTBH #### [facility] [address] [place] [address] Dr. Deepak Greenfield CBC AUTO DIFFon 01-12-2022 BASO # 0.0 103/ul Normal 0.0-0.1 [facility] Comment on above: Performed By: #### M G, CMP #### [facility] [address] [place] [address] Dr. Deepak Greenfield Basophils/100 WBC (Bld) 0.3 % Normal 0.2-2.0 [facility] Comment on above: Performed By: #### M G, CMP #### [facility] [address] [place] [address] Dr. Deepak Greenfield EO # 0.1 103/ul Normal 0.0-0.7 [facility] Comment on above: Performed By: #### M G, CMP #### [facility] [address] [place] [address] Dr. Deepak Greenfield Eosinophils/100 WBC (Bld) 1.3 % Normal 0.9-7.0 [facility] Comment on above: Performed By: #### M G, CMP #### [facility] [address] [place] [address] Dr. Deepak Greenfield Erythrocyte distribution width (RBC) [Ratio] 14.2 % Normal 11.0-15.0 [facility] Comment on above: Performed By: #### M G, CMP #### [facility] [address] [place] [address] Dr. Deepak Greenfield Hematocrit (Bld) [Volume fraction] 40.4 % Critically low 42.0-54.0 [facility] Comment on above: Performed By: #### M G, CMP #### [facility] [address] [place] [address] Dr. Deepak Greenfield Hemoglobin (Bld) [Mass/Vol] 13.1 g/dL Critically low 14.0-18.0 [facility] Comment on above: Performed By: #### M G, CMP #### [facility] [address] [place] [address] Dr. Deepak Greenfield IG # 0.01 10e3/ul Normal 0.00-0.03 [facility] Comment on above: Performed By: #### M G, CMP #### [facility] [address] [place] [address] Dr. Deepak Greenfield IG % 0.1 % Normal 0.0-0.5 [facility] Comment on above: Performed By: #### M G, CMP #### [facility] [address] [place] [address] Dr. Deepak Greenfield LYMPH # 3.3 103/ul Normal 1.2-3.8 [facility] Comment on above: Performed By: #### M G, CMP #### [facility] [address] [place] [address] Dr. Deepak Greenfield Lymphocytes/100 WBC (Bld) 42.3 % Normal 20.5-60.0 [facility] Comment on above: Performed By: #### Karishma G, CMP #### [facility] [address] [place] [address] Dr. Deepak Greenfield MANUAL DIFF REQ NO Normal [facility] Comment on above: Performed By: #### M G, CMP #### [facility] [address] [place] [address] Dr. Deepak Greenfield MCH (RBC) [Entitic mass] 32.4 pg Normal 25.9-34.0 [facility] Comment on above: Performed By: #### M G, CMP #### [facility] [address] [place] [address] Dr. Deepak Greenfield MCHC (RBC) [Mass/Vol] 32.4 g/dL Normal 29.9-35.2 [facility] Comment on above: Performed By: #### M G, CMP #### [facility] [address] [place] [address] Dr. Deepak Greenfield MCV (RBC) [Entitic vol] 100.0 fL Critically high 80.0-94.0 [facility] Comment on above: Performed By: #### M G, CMP #### [facility] [address] [place] [address] Dr. Deepka Greenfield MONO # 0.6 103/ul Normal 0.3-0.8 [facility] Comment on above: Performed By: #### M G, CMP #### [facility] [address] [place] [address] Dr. Deepak Greenfield Monocytes/100 WBC (Bld) 7.6 % Normal 1.7-12.0 [facility] Comment on above: Performed By: #### M G, CMP #### [facility] [address] [place] [address] Dr. Deepak Greenfield NEUT # 3.8 103/ul Normal 1.4-6.5 [facility] Comment on above: Performed By: #### M G, CMP #### [facility] [address] [place] [address] Dr. Deepak Greenfield Neutrophils/100 WBC (Bld) 48.4 % Normal 43.0-75.0 [facility] Comment on above: Performed By: #### M G, CMP #### [facility] [address] [place] [address] Dr. Deepak Greenfield Platelet mean volume (Bld) [Entitic vol] 9.6 fL Normal 9.5-13.5 [facility] Comment on above: Performed By: #### M G, CMP #### [facility] [address] [place] [address] Dr. Deepak Greenfield PLT 315 103/ul Normal 150-450 [facility] Comment on above: Performed By: #### M G, CMP #### [facility] [address] [place] [address] Dr. Deepak Greenfield RBC 4.04 106/ul Critically low 4.70-6.10 [facility] Comment on above: Performed By: #### M G, CMP #### [facility] [address] [place] [address] Dr. Deepak Greenfield WBC 7.9 103/ul Normal 4.0-11.0 [facility] Comment on above: Performed By: #### M G, CMP #### [facility] [address] [place] [address] Dr. Deepak Greenfield DEPAKENE/VALPROICon 01-13-20 DEPAKENE 89.7 ug/ml Normal 50.0-100.0 [facility] Comment on above: Performed By: #### I NFLUAB #### [facility] [address] [place] [address] Dr. Deepak Greenfield PROF CHEM 8 (BAS METB)on Anion gap [Moles/Vol] 12.9 mmol/L Normal [facility] Comment on above: Performed By: #### I NFLUAB #### [facility] [address] [address] [address] Deepak Greenfield Calcium [Mass/Vol] 8.8 mg/dL Normal 8.5-10.1 [facility] Comment on above: Performed By: #### I NFLUAB #### [facility] [address] [place] [address] Dr. Deepak Greenfield Chloride [Moles/Vol] 103 mmol/L Normal 98-107 [facility] Comment on above: Performed By: #### I NFLUAB #### [facility] [address] [address] [address] Deepak Greenfield CO2 [Moles/Vol] 28.1 mmol/L Normal 21.0-32.0 [facility] Comment on above: Performed By: #### I NFLUAB #### [facility] [address] [place] [address] Dr. Deepak Greenfield Creatinine [Mass/Vol] 0.58 mg/dL Critically low 0.70-1.30 [facility] Comment on above: Performed By: #### I NFLUAB #### [facility] [address] [place] [address] Dr. Deepak Greenfield EGFR-AF CHADIAN >60 Normal >=60 [facility] Comment on above: Performed By: #### I NFLUAB #### [facility] [address] [address] [address] Deepak Greenfield EGFR-NON AF CHADIAN >60 Normal >=60 [facility] Comment on above: Performed By: #### I NFLUAB #### [facility] [address] [address] [address] Deepak Greenfield Glucose [Mass/Vol] 117 mg/dL Critically high 74-106 [facility] Comment on above: Performed By: #### I NFLUAB #### [facility] [address] [address] [address] Deepak Greenfield Potassium [Moles/Vol] 4.0 mmol/L Normal 3.5-5.1 [facility] Comment on above: Performed By: #### I NFLUAB #### [facility] [address] [address] [address] Deepak Greenfield Sodium [Moles/Vol] 140 mmol/L Normal 136-145 [facility] Comment on above: Performed By: #### I NFLUAB #### [facility] [address] [place] [address] Dr. Deepak Greenfield Urea nitrogen [Mass/Vol] 7.0 mg/dL Normal 7.0-18.0 [facility] Comment on above: Performed By: #### I NFLUAB #### [facility] [address] [place] [address] Dr. Deepak Greenfield Urea nitrogen/Creatinine [Mass ratio] 12.1 mg/mg Normal [facility] Comment on above: Performed By: #### I NFLUAB #### [facility] [address] [place] [address] Dr. Deepak Greenfield SGOTon 01-12-2022 AST [Catalytic activity/Vol] 31 U/L Normal 15-37 [facility] Comment on above: Performed By: #### C VDTBH #### [facility] [address] [place] [address] Dr. Deepak Greenfield SGPTon 01-12-2022 ALT [Catalytic activity/Vol] 48 U/L Normal 16-63 [facility] Comment on above: Performed By: #### C VDTBH #### [facility] [address] [place] [address] Dr. Deepak Cardoso PROTEIN SERUMon 01-12-2022 Protein [Mass/Vol] 7.3 g/dL Normal 6.4-8.2 [facility] Comment on above: Performed By: #### B #### [facility] [address] [place], [place] [address] Dr. Deepak Greenfield XR CHEST 2 Von [...] by: ANICETO CROCKER Date: 2022-01-06 16:15 Normal [facility] Progress Noteson 12-16-2021 District Service Manager Authentication Interface Message Text ----- Thursday, December 16, 2021 at 12:03:50 PM ----- ----- Provider: [id number] Powell Hygienist -- Clinic: [place] ----- [facility], Pt is ready for tx. Pt presented for dental evaluation for future OR. Caregiver in the room. Patient is non-verbal. Severe intellectual disability, seizure disorder Caregiver stated patient is not pain and no complaining. Radiograph taken today: no possible due to patient behavior Case requested for OR. Guardian mother Katia Lopez. [phone]. [facility] [id number] EXT [id number] ( [facility] appt) AVS printed and handed flyer for step by step instruction of OR process to Caregiver exam By: [facility]. OR ----- Signed on Thursday, December 16, 2021 at 12:18:18 PM ----- ----- Provider: [id number] Heriberto Adams DDS -- Clinic: [place] ----- Normal [facility] XR DEXA BONE DENSITYon 11-20 XR [...] by: MARGARITO DAVIES Date: 2021-11-20 11:42 Normal [facility] US SCROTUMon 11-14-2021 US SCROTUM EXAMINATION: [...] by: KRISTIAN BILLINGS Date: 2021-11-14 07:10 Normal [facility] AMMONIAon 10-31-2021 Ammonia (P) [Moles/Vol] 88 umol/L Critically high 11-32 [facility] Comment on above: Performed By: #### M G, CMP #### [facility] [address] [address] [address] Deepak Greenfield AMMONIAon 10-30-2021 Ammonia (P) [Moles/Vol] 103 umol/L Critically high 11-32 [facility] Comment on above: Result Comment: SPEC IMEN SLIGHTLY HEMOLYZED MAY AFFECT AMM RESULT Performed By: #### I NFLUAB #### [facility] [address] [place] [address] Dr. Deepak Greenfield WOUND CULTUREon 10-23-2021 Bacteria identified Aer cx Nom (Unsp spec) Final report Normal [facility] Comment on above: Performed By: #### C XWND #### [facility] [address] [place] [address] Dr. Deepak Greenfield Result 1 Comment Normal [facility] Comment on above: Result Comment: No g rowth in 36 - 48 hours. Performed By: #### C XWND #### [facility] [address] [place] [address] Dr. Deepak Greenfield WOUND CULTUREon 10-02-2021 Bacteria identified Aer cx Nom (Unsp spec) Final report Normal [facility] Comment on above: Performed By: #### A MM #### [facility] [address] [place] [address] Dr. Deepak Greenfield Result 1 Mixed skin omid Normal [facility] Comment on above: Performed By: #### A MM #### [facility] [address] [place] [address] Dr. Deepak Greenfield AMYLASEon 09-22-2021 Amylase [Catalytic activity/Vol] 24 U/L Critically low 25-115 [facility] Comment on above: Performed By: #### C BC #### [facility] [address] [place] [address] Dr. Deepak Greenfield CBC AUTO DIFFon 09-22-2021 BASO # 0.0 103/ul Normal 0.0-0.1 [facility] Comment on above: Performed By: #### C VDTBH #### [facility] [address] [place] [address] Dr. Deepak Greenfield Basophils/100 WBC (Bld) 0.5 % Normal 0.2-2.0 [facility] Comment on above: Performed By: #### C VDTBH #### [facility] [address] [place] [address] Dr. Deepak Greenfield EO # 0.1 103/ul Normal 0.0-0.7 [facility] Comment on above: Performed By: #### C VDTBH #### [facility] [address] [place] [address] Dr. Deepak Greenfield Eosinophils/100 WBC (Bld) 1.3 % Normal 0.9-7.0 [facility] Comment on above: Performed By: #### C VDTBH #### [facility] [address] [place] [address] Dr. Deepak Greenfield Erythrocyte distribution width (RBC) [Ratio] 13.9 % Normal 11.0-15.0 [facility] Comment on above: Performed By: #### C VDTBH #### [facility] [address] [place] [address] Dr. Deepak Greenfield Hematocrit (Bld) [Volume fraction] 40.0 % Critically low 42.0-54.0 [facility] Comment on above: Performed By: #### C VDTBH #### [facility] [address] [place] [address] Dr. Deepak Greenfield Hemoglobin (Bld) [Mass/Vol] 13.0 g/dL Critically low 14.0-18.0 [facility] Comment on above: Performed By: #### C VDTBH #### [facility] [address] [place] [address] Dr. Deepak Greenfield IG # 0.01 10e3/ul Normal 0.00-0.03 [facility] Comment on above: Performed By: #### C VDTBH #### [facility] [address] [place] [address] Dr. Deepak Greenfield IG % 0.2 % Normal 0.0-0.5 [facility] Comment on above: Performed By: #### C VDTBH #### [facility] [address] [place] [address] Dr. Deepak Greenfield LYMPH # 3.0 103/ul Normal 1.2-3.8 [facility] Comment on above: Performed By: #### C VDTBH #### [facility] [address] [place] [address] Dr. Deepak Greenfield Lymphocytes/100 WBC (Bld) 47.9 % Normal 20.5-60.0 [facility] Comment on above: Performed By: #### C VDTBH #### [facility] [address] [place] [address] Dr. Deepak Greenfield MANUAL DIFF REQ NO Normal [facility] Comment on above: Performed By: #### C VDTBH #### [facility] [address] [place] [address] Dr. Deepak Greenfield MCH (RBC) [Entitic mass] 32.9 pg Normal 25.9-34.0 [facility] Comment on above: Performed By: #### C VDTBH #### [facility] [address] [place] [address] Dr. Deepak Greenfield MCHC (RBC) [Mass/Vol] 32.5 g/dL Normal 29.9-35.2 [facility] Comment on above: Performed By: #### C VDTBH #### [facility] [address] [place] [address] Dr. Deepak Greenfield MCV (RBC) [Entitic vol] 101.3 fL Critically high 80.0-94.0 [facility] Comment on above: Performed By: #### C VDTBH #### [facility] [address] [place] [address] Dr. Deepak Greenfield MONO # 0.7 103/ul Normal 0.3-0.8 [facility] Comment on above: Performed By: #### C VDTBH #### [facility] [address] [place] [address] Dr. Deepak Greenfield Monocytes/100 WBC (Bld) 10.3 % Normal 1.7-12.0 [facility] Comment on above: Performed By: #### C VDTBH #### [facility] [address] [place] [address] Dr. Deepak Greenfield NEUT # 2.5 103/ul Normal 1.4-6.5 [facility] Comment on above: Performed By: #### C VDTBH #### [facility] [address] [place] [address] Dr. Deepak Greenfield Neutrophils/100 WBC (Bld) 39.8 % Critically low 43.0-75.0 [facility] Comment on above: Performed By: #### C VDTBH #### [facility] [address] [place] [address] Dr. Deepak Greenfield Platelet mean volume (Bld) [Entitic vol] 10.1 fL Normal 9.5-13.5 [facility] Comment on above: Performed By: #### C VDTBH #### [facility] [address] [place] [address] Dr. Deepak Greenfield PLT 311 103/ul Normal 150-450 [facility] Comment on above: Performed By: #### C VDTBH #### [facility] [address] [place] [address] Dr. Deepak Greenfield RBC 3.95 106/ul Critically low 4.70-6.10 [facility] Comment on above: Performed By: #### C VDTBH #### [facility] [address] [place] [address] Dr. Deepak Greenfield WBC 6.3 103/ul Normal 4.0-11.0 [facility] Comment on above: Performed By: #### C VDTBH #### [facility] [address] [place] [address] ABD/PELV W CONon [...] by: JAMIE ALICIA Date: 2021-09-22 02:34 Normal [facility] CT HEAD WO CONon 09-22-2021 CT [...] BRITTON FONTENOT Date: 2021-09-22 01:13 Normal [facility] LIPASEon 09-22-2021 Lipase [Catalytic activity/Vol] 28.0 U/L Critically low 73.0-393.0 [facility] Comment on above: Performed By: #### C BC #### [facility] [address] [address] [address] Deepak Greenfield PROF 14(COMP METB)on 022 Albumin [Mass/Vol] 3.3 g/dL Critically low 3.4-5.0 Th [facility] Comment on above: Performed By: #### B MP #### [facility] [address] [address] [address] Deepak Greenfield Albumin/Globulin [Mass ratio] 0.9 {ratio} Normal [facility] Comment on above: Performed By: #### B MP #### [facility] [address] [place] [address] Dr. Deepak Greenfield ALP [Catalytic activity/Vol] 38 U/L Critically low 46-116 [facility] Comment on above: Performed By: #### B MP #### [facility] [address] [address] [address] Deepak Greenfield ALT [Catalytic activity/Vol] 91 U/L Critically high 16-63 [facility] Comment on above: Performed By: #### B MP #### [facility] [address] [place] [address] Dr. Deepak Greenfield Anion gap [Moles/Vol] 10.2 mmol/L Normal [facility] Comment on above: Performed By: #### B MP #### [facility] [address] [address] [address] Deepak Greenfield AST [Catalytic activity/Vol] 50 U/L Critically high 15-37 [facility] Comment on above: Performed By: #### B MP #### [facility] [address] [place] [address] Dr. Deepak Greenfield Bilirubin [Mass/Vol] 0.3 mg/dL Normal 0.2-1.0 [facility] Comment on above: Performed By: #### B MP #### [facility] [address] [address] [address] Deepak Greenfield Calcium [Mass/Vol] 8.6 mg/dL Normal 8.5-10.[address] [facility] Comment on above: Performed By: #### B MP #### [facility] [address] [address] [address] Deepak Greenfield Chloride [Moles/Vol] 106 mmol/L Normal 98-107 [facility] Comment on above: Performed By: #### B MP #### [facility] [address] [address] [address] Deepak Greenfield CO2 [Moles/Vol] 29.9 mmol/L Normal 21.0-32.0 [facility] Comment on above: Performed By: #### B MP #### [facility] [address] [place] [address] Dr. Deepak Greenfield Creatinine [Mass/Vol] 0.65 mg/dL Critically low 0.70-1.30 [facility] Comment on above: Performed By: #### B MP #### [facility] [address] [address] [address] Deepak Greenfield EGFR-AF CHADIAN >60 Normal >=60 [facility] Comment on above: Performed By: #### B MP #### [facility] [address] [place] [address] Dr. Deepak Greenfield EGFR-NON AF CHADIAN >60 Normal >=60 [facility] Comment on above: Performed By: #### B MP #### [facility] [address] [address] [address] Deepak Greenfield Globulin (S) [Mass/Vol] 3.7 g/dL Normal [facility] Comment on above: Performed By: #### B MP #### [facility] [address] [place] [address] Dr. Deepak Greenfield Glucose [Mass/Vol] 105 mg/dL Normal 74-[address] [facility] Comment on above: Performed By: #### B MP #### [facility] [address] [place] [address] Dr. Deepak Greenfield Potassium [Moles/Vol] 4.1 mmol/L Normal 3.5-5.1 [facility] Comment on above: Performed By: #### B MP #### [facility] [address] [address] [address] Deepak Greenfield Protein [Mass/Vol] 7.0 g/dL Normal 6.4-8.2 [facility] Comment on above: Performed By: #### B MP #### [facility] [address] [address] [address] Deepak Greenfield Sodium [Moles/Vol] 142 mmol/L Normal 136-145 [facility] Comment on above: Performed By: #### B MP #### [facility] [address] [address] [address] Deepak Greenfield Urea nitrogen [Mass/Vol] 13.0 mg/dL Normal 7.0-18.0 [facility] Comment on above: Performed By: #### B MP #### [facility] [address] [address] [address] Deepak Greenfield Urea nitrogen/Creatinine [Mass ratio] 20.0 mg/mg Normal [facility] Comment on above: Performed By: #### B MP #### [facility] [address] [place] [address] Dr. Deepak Greenfield Vital Signs Date Time Vital Sign Value Performing Clinician Facility 12-16-2022 10:18-0400 Blood Pressure Location Cricket Levine [facility] 12-16-2022 10:18-0400 Body temperature 98.06 [degF] Cricket Lue [facility] 12-16-2022 10:18-0400 Diastolic blood pressure 78 mm[Hg] Cricket Lue [facility] 12-16-2022 10:18-0400 Heart rate 84 /min Cricket Levine [facility] 12-16-2022 10:18-0400 Systolic blood pressure 128 mm[Hg] Cricket Messinae [facility] 12-23-2021 11:30-0400 Body height 157.48 cm Antionette Leonel Other [employer] Other 12-23-2021 11:30-0400 Body mass index (BMI) [Ratio] 25.79 kg/m2 Antionette Leonel Other [employer] Other 12-23-2021 11:30-0400 Body temperature 98.5 [degF] Antionette Leonel Other [employer] Other 12-23-2021 11:30-0400 Body weight 63.96 kg Antionette Leonel Other [employer] Other 12-23-2021 11:30-0400 Diastolic blood pressure 70 mm[Hg] Antionette Leonel Other [employer] Other 12-23-2021 11:30-0400 Respiratory rate 20 /min Antionette Leonel Other [employer] Other 12-23-2021 11:30-0400 SaO2% (BldA) [Mass fraction] 99 % Antionette Leonel Other [employer] Other 12-23-2021 11:30-0400 Systolic blood pressure 120 mm[Hg] Antionette Leonel Other [employer] Other 10-22-2021 10:29-0400 Blood Pressure Location Cricket Levine [facility] 10-22-2021 10:29-0400 Diastolic blood pressure 92 mm[Hg] [facility]ue [facility] 10-22-2021 10:29-0400 Heart rate 100 /min Cricket Lue [facility] 10-22-2021 10:29-0400 Respiratory rate 16 /min Crikcet Lue [facility] 10-22-2021 10:29-0400 Systolic blood pressure 137 mm[Hg] Cricket Lue [facility] Encounters Encounter Date Encounter Type Care Provider Facility Start: 11-07-2023 End: 11-07-2023 Letter encounter Abundioabbie Mares DDS Work Phone: [facility] Start: 08-25-2023 End: 08-25-2023 ambulatory RODRIGUEZ VANG Not Available Start: 07-06-2023 End: 07-06-2023 ambulatory [facility] Work Phone: Start: 07-06-2023 End: 07-06-2023 Patient encounter procedure [facility] Work Phone: Start: 01-05-2023 End: 01-05-2023 ambulatory Antionette Leonel Other [employer] Other Start: 01-05-2023 Office outpatient visit 25 minutes Antionette Leonel [facility] Start: 12-16-2022 End: 12-17-2022 ambulatory Cricket M. Lue Facility:[facility] Start: 12-16-2022 End: 12-16-2022 Patient encounter procedure Cricket M. Lue [facility] Start: 08-04-2022 End: 08-04-[address] FAM VENTURA Facility:[facility] Start: 07-29-2022 End: 08-02-2022 Evaluation and management of inpatient DR FAM VENTURA Facility:[facility] Start: 07-26-2022 End: 07-27-[address] FAM VENTURA Facility:[facility] Start: 07-23-2022 End: 07-24-2022 ambulatory FAM VENTURA Facility:[facility] [place] [place] Start: 07-23-2022 End: 07-23-2022 Patient encounter procedure FAM VENTURA [facility] Start: 06-23-2022 End: 06-23-2022 ambulatory Antionette Leonel Other [employer] Other Start: 06-23-2022 Office outpatient visit 25 minutes Antionette Leonel [facility] Start: 06-03-2022 End: 06-04-[address] FAM VENTURA Facility:[facility] Start: 05-08-2022 Letter encounter Abundio Blancobeatrice ACEVES Work Phone: [facility] Start: 04-22-2022 End: 04-23-[address] FAM VENTURA Facility:[facility] Start: 03-19-2022 End: 03-20-[address] FAM VENTURA Facility:[facility] Start: 03-10-2022 End: 03-11-[address] FAM VENTURA Facility:[facility] Start: 01-24-2022 End: 01-24-[address] DIAMOND BURGER . Facility:[facility] Start: 01-18-2022 End: 01-18-2022 ambulatory ANJELICA DOLL . Facility:[facility] Start: 01-13-[address] [facility] Start: 01-12-2022 End: 01-13-[address] RODRIGUEZ VANG Facility:[facility] Start: 01-06-2022 End: 01-07-[address] FAM VENTURA Facility:[facility] Start: 12-23-2021 End: 12-23-2021 ambulatory Antionette Castaneda Other [facility] Other Start: 12-23-2021 Office outpatient visit 25 minutes Antionette Leonel [facility] Start: 12-16-2021 End: 12-17-2021 ambulatory UNKNOWN PROVIDER [facility] Start: 12-16-2021 End: 12-17-2021 Patient encounter procedure Mora Powell [facility] Work Phone: [facility] Start: 12-10-2021 End: 12-10-2021 Patient encounter procedure Cricket Levine [facility] Start: 11-20-2021 End: 11-21-[address] FAM VENTURA Facility:[facility] Start: 11-13-2021 End: 11-14-2021 ambulatory CRICKET Duenas Facility:[facility] Start: 10-31-2021 End: 11-01-[address] FAM VENTURA Facility:[facility] Start: 10-22-2021 End: 10-22-2021 Patient encounter procedure Cricket Levine [facility] Start: 10-21-2021 End: 10-21-[address] FAM VENTURA Facility:[facility] Start: 09-29-2021 End: 09-29-[address] FAM VENTURA Facility:[facility] Start: 09-22-2021 End: 09-22-2021 ambulatory ABBI SANCHEZ Facility:[facility] Plan of Treatment Date Care Activity Detail Author Start: 02-01-2030 Shingles (RZV) Vacci ne (1 of 2) Shingles (RZV) Vaccine (1 of 2) [facility] Start: 01-18-2024 Influenza vaccination Influ[facility] in[facility] Start: 12-18-2022 COVID-19 Vaccine ( season) COVID-19 Vaccine ( season) [facility] Start: 01-17-2022 Influenza vaccination Influenza Vacc ine (#1) [facility] Start: 02-01-2015 Lipid panel Cholesterol [facility] Start: 05-20-2012 Annual wellness visit Annual W ellness Visit ([id number]) [facility] Start: 02-01-2007 HPV Vaccine (optiona l start 27-45 years) HPV Vaccine (optional start 27-45 years) [facility] Start: 02-01-1999 Hepatitis A (HAV) Va ccine (optional start 19+ years) Hepatitis A (HAV) Vaccine (optional start 19+ years) [facility] Start: 02-01-1999 Hepatitis B vaccination Hepati tis B (HBV) Vaccine (1 of 3 - 19+ 3-dose series) [facility] Start: 02-01-1998 Hepatitis C screening Hepatitis C An tibody [facility] Start: 02-01-1998 Tetanus + diphtheria + acellular pertussis vaccine (product) [facility] Start: 02-01-1995 HIV screening HIV Test [facility] Start: 1980 COVID-19 Vaccine (#1) COVID-19 Vacci ne (#1) [facility] Immunizations Immunization Date Immunization Notes Care Provider Lucero ibrahim 03-04-2020 pneumococcal conjuga te vaccine, 13 valent Mora Urmetz [facility] Work Phone: [facility] 01-26-2018 influenza, injectabl e, quadrivalent, preservative free Mora Urmetz [facility] Work Phone: [facility] 01-26-2018 influenza virus vaccine, unspecified formulation Mora Urmetz [facility] Work Phone: [facility] 02-10-2017 influenza virus vaccine, unspecified formulation Cricket Levine [facility] 02-10-2017 influenza, injectabl e, quadrivalent, contains preservative Mora Urmetz [facility] Work Phone: [facility] 02-07-2015 influenza virus vaccine, unspecified formulation Cricket Levine [facility] 02-07-2015 influenza, injectabl e, quadrivalent, preservative free Mora Urmetz [facility] Work Phone: [facility] 10-23-2014 pneumococcal polysaccharide vaccine, 23 valent Mora Urmetz [facility] Work Phone: [facility] 12-31-2010 influenza virus vaccine, unspecified formulation Cricket Lukarne [facility] 12-31-2010 influenza, seasonal, injectable Mora Urmetz [facility] Work Phone: [facility] 03-06-2009 novel [id number], preservative-free, injectable Mora Urmetz [facility] Work Phone: [facility] 02-09-2008 influenza virus vaccine, whole virus Mora Urmetz RD Work Phone: [facility] 02-09-2008 influenza, whole Cricket Lue [facility] NEGATED: Highlighted row has not occurred!12-10-2021 SARS-CoV-2 mRNA (tozinameran 5y-11y) vaccine Cricket Lue [facility] Payers Date Payer Category Payer Medicaid [id number] 2011 Medicare MEDICARE MEDICAR E PART A & B [id number] 2011-Present [address] [place] [address] Medicare [id number] 1980 Unknown [id number] [id number]2 1980 Unknown [id number] 2.16.840.1.564827.3.579.2.593 1980 Unknown [id number] 2.16.840.1.171533.3.579.2.593 1980 Unknown [id number] 2.16.840.1.149437.3.579.2.593 1980 Unknown [id number] 2.16.840.1.844826.3.579.2.593 1980 Unknown [id number] 2.16.840.1.701796.3.579.2.727 1980 Unknown [id number] 2.16.840.1.773813.3.579.2.727 1980 Unknown [id number] 2.16.840.1.062185.3.579.2.1259 1959 Medicaid [id number] 1959 Medicare [id number] 2.16.840.1.891730.19 1953 Unknown [id number] 2.16.840.1.087979.3.579.2.593 1953 Unknown [id number] 2.16.840.1.604954.3.579.2.593 1953 Unknown [id number] 2.16.840.1.009655.3.579.2.593 1953 Unknown [id number] 2.16.840.1.058625.3.579.2.593 1953 Unknown [id number] 2.16.840.1.998773.3.579.2.593 1953 Unknown [id number] 2.16.840.1.425731.3.579.2.593 1953 Unknown [id number] 2.16.840.1.265396.3.579.2.593 1953 Unknown [id number] 2.16.840.1.924598.3.579.2.593 1953 Unknown [id number] 2.16.840.1.189418.3.579.2.593 1953 Unknown [id number] 2.16.840.1.600001.3.579.2.593 1953 Unknown [id number] 2.16.840.1.811120.3.579.2.593 1953 Unknown [id number] 2.16.840.1.343790.3.579.2.593 1953 Unknown [id number] 2.16.840.1.167066.3.579.2.593 1953 Unknown [id number] 2.16.840.1.678070.3.579.2.593 Self-pay Self Pay [id number] Social History Date Type Detail Facility Tobacco smoking status No Smoking Status Entered [facility] Sex Assigned At Male [facility] Start: 03-28-2020 Tobacco smoking status NHIS Tobacco smoking consumption unknown [facility] Start: 1980 Sex [facility]igned At [facility] Tobacco smoking status No Smoking Status Entered [facility] Start: 12-16-2022 Tobacco smoking status Never smoked tobacco (finding) [facility] Tobacco smoking status Never [facility] Start: 1980 Sex Assigned At Male [facility] Functional Status Date Assessment Result Facility 12-16-2022 Functional Status N/A [facility] 12-10-2021 Functional Status N/A [facility] 10-22-2021 Functional Status N/A [facility] Clinical Notes 10-22-2021 to 01-05-2023 Note Date & Type Note Facility 01-05-2023 Evaluation note Encounter Date Diagnosis Assessment Notes Dec, COPD (chronic obstructive pulmonary disease) (ICD-10 - J44.9) [employer] Other 08-30-2023 Hospital Discharge instructions Patient Education [...] provider. Document Revised: 08/14/2021 Document Reviewed: 08/14/2021 Shared[employer] Patient Education 2022 [employer]. Follow Up Care 12/10/2021 11:51:23 With:Abner BYRNE, JUNIOR Hawk, URO Address: When: Unknown Comments:PRN [facility] 03-07-2023 Evaluation note* Encounter Date Diagnosis Assessment Notes Treatment Notes Treatment Clinical Notes Jun, COPD (chronic obstructive pulmonary disease) (ICD-10 - J44.9) Continue with respiratory regemin, including VEST therapy, as you currently are doing. Call office with respiratory questions or concerns. [employer] Other 09-06-2022 Evaluation note* Encounter Date Diagnosis Assessment Notes Treatment Notes Treatment Clinical Notes Dec, COPD (chronic obstructive pulmonary disease) (ICD-10 - J44.9) Continue with VEST therapy twice a day. Ok to increase to TID if needed. [employer] Other 08-30-2022 NotePt presented today for OR evaluation. Limited eval was completed. Pt's case is not urgent updated contact information and placed Pt on OR list. Step by step process for OR flyer was given to caregiver. Please wait for phone call from OR coordinator.[employer] [id number] Instructions* Patient Instructions * Mora Powell [facility] - 12/16/2021 11:57 AM EDT Pt presented today for OR evaluation. Limited eval was completed. Pt's case is not urgent updated contact information and placed Pt on OR list. Step by step process for OR flyer was given to caregiver. Please wait for phone call from OR coordinator. documented in this [id number] History of Present illness Narrative* Mora Powell [facility] - 12/16/2021 11:42 AM EDT ----- Thursday, December 16, 2021 at 12:03:50 PM ----- ----- Provider: [id number] Heriberto Powell Hygienist -- Clinic: [place] ----- [facility], Pt is ready for tx. Pt presented for dental evaluation for future OR. Caregiver in the room. Patient is non-verbal. Severe intellectual disability, seizure disorder Caregiver stated patient is not pain and no complaining. Radiograph taken today: no possible due to patient behavior Case requested for OR. Guardian mother Katia Lopez. [phone]. [facility] [phone] EXT [id number] ( [facility] pt's appt) AVS printed and handed flyer for step by step instruction of OR process to Caregiver exam By: Elliott Ham [facility] [place]. OR ----- Signed on Thursday, December 16, 2021 at 12:18:18 PM ----- ----- Provider: [id number] Heriberto Adams DDS -- Clinic: [place] ----- documented in this [id number] Hospital Discharge instructions Patient Education 12/10/2021 11:47:35 [...] right after experiencing incontinence. General instructions Take qohl-qnv-piunuri and prescription medicines only as told by [...] 05/13/2005 Document Revised: 04/15/2018 Document Reviewed: 07/15/2017 SharedReviews Patient Education [employer]. Follow Up Care 10/22/2021 11:38:20 With:Abner BYRNE, JUNIOR Hawk, URO Address: When:1 year Comments:W/ renal US [facility] 07-06-2022 Hospital Discharge instructions Patient Education [...] right after experiencing incontinence. General instructions Take shzc-myl-bqtchmd and prescription medicines only as told by [...] 05/13/2005 Document Revised: 04/15/2018 Document Reviewed: 07/15/2017 SharedReviews Patient Education 2020 [employer]. 10/22/2021 11:42:30 Renal Mass Renal Mass A [...] provider gives to you. In general: Take teoo-wgh-cdivimu and prescription medicines only as told by [...] 10/31/2014 Document Revised: 05/12/2018 Document Reviewed: 05/12/2018 SharedReviews Patient Education 2020 [employer]Brand. Follow Up Care 09/22/2021 14:10:46 With:Cricket Levine MD, URL, URO Address: When:1 month [facility] evaluation + Plan note Future Appointments Appointment Date:11/19/2021 10:00:00 AM Scheduled Provider:Cricket Levine MD Location:[facility] Appointment Type:URO Office Visit [facility] evaluation + Plan note Future Appointments Appointment Date:12/16/2022 10:15:00 AM Scheduled Provider:Cricket Levine MD Location:[facility] Appointment Type:URO Office Visit [facility] evaluation note* Diagnosis Onset Date Resolution Status COPD (chronic obstructive pulmonary disease) acute Severe intellectual disability [facility] Work Phone: [facility] general Narrative - Reported* Type Description Date Medical History Mental retardation Medical History Seizure Disorder Medical History Tristen Syndrome Medical History ADD Medical History Hypothyroidism Medical History Spastic Quadraparesis Medical History Osteoporosis Medical History Tristen-Beuren syndrome Medical History Seizure disorder Medical History Seizure disorder Medical History COPD Surgical History VNS REPLACED 2021 [employer] Other Hospital course Narrative No data available for this section [facility] [employer] Hospital Discharge instructions No data available for this section [facility] No data available for this section [facility] Summary Purpose Family History No Family [...] Care Team (unrecognized sect ion and content) Textile Screen Maker Relationship Specialty Start Date End Date Abundio Mares DDS [address] [place] [id number] Resident Dentistry 02/23/20 Textile Screen Maker Relationship Specialty Start Date End Date Abundio Mares DDS [address] [place] [address] Resident Dentistry 02/23/20 Team Status: Active Member Role Status Dates Fam Ventura , DO Primary Care Provider Active Team Status: Inactive Member Role Status Dates Fam Ventura , Primary Care Provider Active Start: July 06, 2023 End: July 06, 2023 Antionette Castaneda APRN ACN- Attending Provider Active Start: July 06, 2023 End: July 06, 2023 Textile Screen Maker Relationship Specialty Start Date End Date Abundio Mares DDS [address] [place] [address] Resident Dentistry 02/23/20 (unrecognized sect ion and content) No Status Records FoundNo Status Records FoundNo Status Records FoundNo Status Records Found INFORMATION SOURCE (unrecogn ized section and content) DATE CREATED AUTHOR 12/18/2021 [employer] DATE CREATED AUTHOR AUTHOR'S ORGANIZ ATION 08/05/2022 [facility] DATE CREATED AUTHOR AUTHOR'S ORGANIZ ATION 01/26/2023 [facility] DATE CREATED AUTHOR AUTHOR'S ORGANIZ ATION 08/27/2023 [facility] EPIC REASON FOR VISIT (unrecogniz ed section and [...] BE BASED ON THE PRIMARY CLINICAL RECORDS. [facility] provides no warranty or guarantee of the accuracy or completeness of information in this document.
[2023-11-09 08:33] LABS: Ammonia 42 umol/L (11-32)
== END 2023-11-09 06:31 | disposition home or self-care (01) ==
LOC: LAB 06:30
PROVIDERS: PCP Family Medicine; Visit Provider Family Medicine
DX: K76.82 Hepatic encephalopathy (principal)
CPT/HCPCS: 36415; 82140

== ENCOUNTER 2023-12-07 07:23 | Outpatient (OUT) | payer MEDICARE, MEDICAID, SELFPAY ==
--- OUTSIDE RECORDS SUMMARY | 2023-12-06 06:41 | XMS_ITS | CCD ---
Author Organization [facility] Clini[facility]va Care Team Providers Care Psychiatric Aide Name Role Phone FAM VENTURA Primary Care [...] Drug Allergy Unknown [facility] (9 sources) Phenytoin; Translations: [phenytoin] Drug Allergy 01-06-20 23 Unknown, Unknown Reaction [facility] (13 sources) Promethazine; Translations: [promethazine] Drug Allergy 05-12-19 17 Unknown, Unknown Reaction [facility] (4 sources) Phenytoin; Translations: [PHENYTOIN SODIUM EXTENDED] Drug Allergy 05-12-19 17 [facility] (4 sources) AMOXICILLIN-POT CLAVULANATE; Translations: [AMOXICILLIN-POT CLAVULANATE] Propensity to adverse reactions to drug (disorder) 05-12-19 17 [facility] (1 source) 4-Aminobenzoic Acid Drug Allergy [facility] (1 source) Amoxicillin / Clavulanate Drug Allergy 05-29-19 14 [facility] (1 source) Levamisole Drug Allergy 05-29-19 14 [facility] (1 source) metroNIDAZOLE Drug Allergy [facility] (1 source) Phenytoin Drug Allergy 05-29-19 14 [facility] (1 source) remdesivir (investigational use) Drug allergy (disorder) [facility] (1 source) Amoxicillin Drug Allergy 01-06-20 23 Unknown Reaction [facility] (1 source) Clavulanate Drug Allergy 01-06-20 23 Unknown Reaction [facility] Medications Current Medications Medication Drug Class(es) Dates Sig (Normalized) Sig (Original) Acetaminophen (6 sources) Start: 12-16-2022 acetaminophen Refills(s) 0 Start Date: 12/16/22 Status: Ordered Start: 03-28-2020 Acetaminophen Active [address] EVERY 4-6 HOURS March 28, 2020 1:00am [...] 1:00am 10MG RECTAL GEL, PATIENT TAKES IT CT - wont let me save without route. Start: 07-05-2015 diazepam 10 mg , Rectal, PRN Seizure, Refills(s) 0 Start Date: 07/05/15 Status: Ordered docusate sodium 100 mg oral capsule (8 sources) Start: 10-22-2021 take [address] [facility] twice daily as needed for constipation docusate sodium 100 mg Cap 100 mg = 1 cap(s), Oral, BID, PRN for constipation, # 20 cap(s), Refills(s) 0 Start Date: 10/22/21 Status: Ordered Start: 03-28-2020 take 200 mg by mouth once daily in the morning Docusate Sodium Active 200 MG PO Every morning March 28, 2020 1:00am take 1 capsule by [facility] every twenty-four hours Docusate Sodium 100 MG [...] 02/23/2020 Active take [address] [facility] in the morning, then take 3 [...] 07/04/15 Status: Ordered take 1 tablet by [facility] every twenty-four hours Levothyroxine Sodium 150 [...] Ordered Normal saline (7 sources) Start: 07-05-2015 [place] Saline Alpa al Gel Nasal, TID, Refill(s) 0, Dry nasal passages Start Date: 07/05/15 Status: Ordered [place] Saline Nasal Gel Nasally Active omeprazole 40 [...] bid, Prophylaxis Start Date: 07/05/15 Status: Ordered oral powder for reconstitution (1 source) Start: [id number] oral powder for reconstitution Start Date: 12/16/22 Status: Ordered polyethylene glycol 3350 93608 mg powder for oral solution (4 sources) [...] 0 Start Date: 10/22/21 Status: Ordered sennosides, penitentiary 8.6 mg oral tablet (1 source) Start: [...] e a day Active Sodium Chloride-Aloe Vera ([place] Saline) gel (1 source) Start: 06-28-2023 Sodium Chlorid e-Aloe Vera ([place] Saline) gel Active 1 APPLIC TOPICAL Daily [...] 06-30-2013 Chronic Other aftercare (5 sources) Other jail (current) drug therapy; Translations: [OTH ASSISTED CURRENT DRUG THERAPY] Onset: 06-03-2022 Episodic Other [...] (oxcarbazepine 600 mg Tab) polyethylene glycol 3350 ([id number] oral powder for reconstitution) polyethylene glycol 3350 (polyethylene glycol 3350 17 gram packet) rifaximin (Xifaxan 550 mg oral tablet) senna (Senna 8.6 mg oral tablet) sodium chloride nasal ([place] Saline Nasal Gel) tamsulosin Discharge Vitals Temperature [...] Application T (more content not included)... Normal [facility] Patient Educationon 12-17-19 23 Patient Education [...] provider. Document Revised: 08/14/2021 Document Reviewed: 08/14/2021 [employer] Patient Education ? 2022 [employer] Normal [facility] Physician Orderon 12-16-2022 Physician Order [id number] .[id number]:127 Normal [facility] RAD - Ultrasound Reporton RAD - Ultrasound Report [id number] .[id number]:127 Normal [facility] Urology Office/Clinic Noteon 12-16-2022 Urology Office/Clinic [...] of retractile testes. Pt currently resides in [facility]. CBC/CMP 08/01/22 1. Retractile testis (Q55.22: [...] Eye-Both, QID atorvastatin, 10 mg, Oral, Daily [place] Saline Nasal Gel, Nasal, TID azelastine nasal 137 mcg/inh spray, 2 spray(s), Nasal, As (more content not included)... Normal [facility] Comment on above: Result Comment: Elec tronically Signed By: Abner BYRNE, Arline Little\.br\Date and Time Signed: 12/16/22 20:02 EDT\.br\Electronically [...] by: GUANAKITO MEADE Date: 2022-08-04 18:50 Normal [facility] AMMONIAon 08-02-2022 Ammonia (P) [Moles/Vol] 87 umol/L Critically high 11-32 [facility] Comment on above: Performed By: #### B MP #### [facility] [address] [place] [address] Dr. Deepak Greenfield AMMONIAon 08-01-2022 Ammonia (P) [Moles/Vol] 42 umol/L Critically high [facility] Comment on above: Performed By: #### M G, CMP #### [facility] [address] [place] [address] Dr. Deepak Greenfield CBC W MANUAL DIFFon 08-02-19 23 ATYPICAL LYMPH # 0.41 103/ul Normal [facility] Comment on above: Performed By: #### M G, CMP #### [facility] [address] [place] [address] Dr. Deepak Greenfield ATYPICAL LYMPH % 7 % Normal [facility] Comment on above: Performed By: #### M G, CMP #### [facility] [address] [place] [address] Dr. Deepak Greenfield BAND # 0.0 103/ul Normal 0.0-0.3 [facility] Comment on above: Performed By: #### M G, CMP #### [facility] [address] [place] [address] Dr. Deepak Greenfield BAND % 0 % Normal 0-5 [facility] Comment on above: Performed By: #### M G, CMP #### [facility] [address] [place] [address] Dr. Deepak Greenfield BASOM # 0.00 103/ul Normal 0.00-0.10 [facility] Comment on above: Performed By: #### M G, CMP #### [facility] [address] [place] [address] Dr. Deepak Greenfield BASOM % 0.0 % Critically low 0.2-2.0 [facility] Comment on above: Performed By: #### M G, CMP #### [facility] [address] [place] [address] Dr. Deepak Greenfield BLAST # Normal [facility] Comment on above: Performed By: #### M G, CMP #### [facility] [address] [place] [address] Dr. Deepak Greenfield BLAST % Normal [facility] Comment on above: Performed By: #### M G, CMP #### [facility] [address] [place] [address] Dr. Deepak Greenfield CORRECTED WBC Normal 4.0-11.0 [facility] Comment on above: Performed By: #### M G, CMP #### [facility] [address] [place] [address] Dr. Deepak Greenfield EOS # 0.06 103/ul Normal 0.00-0.70 [facility] Comment on above: Performed By: #### M G, CMP #### [facility] [address] [place] [address] Dr. Deepak Greenfield EOS% 1.0 % Normal 0.9-7.0 [facility] Comment on above: Performed By: #### M G, CMP #### [facility] [address] [place] [address] Dr. Deepak Greenfield HCT 37.6 % Critically low 42.0-54.0 [facility] Comment on above: Performed By: #### M G, CMP #### [facility] [address] [place] [address] Dr. Deepak Greenfield HGB 12.3 g/dl Critically low 14.0-18.0 [facility] Comment on above: Performed By: #### M G, CMP #### [facility] [address] [place] [address] Dr. Deepak Greenfield LYMPHM # 1.91 103/ul Normal 1.20-3.80 [facility] Comment on above: Performed By: #### M G, CMP #### [facility] [address] [place] [address] Dr. Deepak Greenfield LYMPHM% 33.0 % Normal 20.5-60.0 [facility] Comment on above: Performed By: #### M G, CMP #### [facility] [address] [place] [address] Dr. Deepak Greenfield MCH 31.7 pg Normal 25.9-34.0 [facility] Comment on above: Performed By: #### M G, CMP #### [facility] [address] [address] [address] Deepak Greenfield MCHC 32.7 g/dl Normal 29.9-35.2 [facility] Comment on above: Performed By: #### M G, CMP #### [facility] [address] [address] [address] Deepak Greenfield MCV 96.9 fL Critically high 80.0-94.0 [facility] Comment on above: Performed By: #### M G, CMP #### [facility] [address] [place] [address] Dr. Deepak Greenfield METAMYELOCYTE # Normal [facility] Comment on above: Performed By: #### M G, CMP #### [facility] [address] [place] [address] Dr. Deepak Greenfield METAMYELOCYTE % Normal [facility] Comment on above: Performed By: #### M G, CMP #### [facility] [address] [place] [address] Dr. Deepak Greenfield MONOM# 0.29 103/ul Critically low 0.30-0.80 [facility] Comment on above: Performed By: #### M G, CMP #### [facility] [address] [place] [address] Dr. Deepak Greenfield MONOM% 5.0 % Normal 1.7-12.0 [facility] Comment on above: Performed By: #### M G, CMP #### [facility] [address] [place] [address] Dr. Deepak Greenfield MPV 11.0 fL Normal 9.5-13.5 [facility] Comment on above: Performed By: #### M G, CMP #### [facility] [address] [place] [address] Dr. Deepak Greenfield MYELOCYTE # Normal [facility] Comment on above: Performed By: #### M G, CMP #### [facility] [address] [place] [address] Dr. Deepak Greenfield MYELOCYTE % Normal [facility] Comment on above: Performed By: #### M G, CMP #### [facility] [address] [address] [address] Deepak Greenfield NRBC Normal [facility] Comment on above: Performed By: #### M G, CMP #### [facility] [address] [address] [address] Deepak Greenfield PLT 208 103/ul Normal 150-450 [facility] Comment on above: Performed By: #### M G, CMP #### [facility] [address] [address] [address] Deepak Greenfield RBC 3.88 106/ul Critically low 4.70-6.10 [facility] Comment on above: Performed By: #### M G, CMP #### [facility] [address] [place] [address] Dr. Deepak Greenfield RDW 12.9 % Normal 11.0-15.0 [facility] Comment on above: Performed By: #### M G, CMP #### [facility] [address] [address] [address] Deepak Greenfield SEG # 3.13 103/ul Normal 1.40-6.50 [facility] Comment on above: Performed By: #### M G, CMP #### [facility] [address] [address] [address] Deepak Greenfield SEG % 54.0 % Normal 43.0-75.0 [facility] Comment on above: Performed By: #### M G, CMP #### [facility] [address] [place] [address] Dr. Deepak Greenfield STOMATOCYTES 3+ Normal [facility] Comment on above: Performed By: #### M G, CMP #### [facility] [address] [address] [address] Deepak Greenfield WBC 5.8 103/ul Normal 4.0-11.0 [facility] Comment on above: Performed By: #### M G, CMP #### [facility] [address] [place] [address] Dr. Deepak Greenfield PROF CHEM 8 (BAS METB)on Anion gap [Moles/Vol] 16.1 mmol/L Normal [facility] Comment on above: Performed By: #### B MP #### [facility] [address] [place] [address] Dr. Deepak Greenfield Calcium [Mass/Vol] 9.3 mg/dL Normal 8.5-10.1 [facility] Comment on above: Performed By: #### B MP #### [facility] [address] [place] [address] Dr. Deepak Greenfield Chloride [Moles/Vol] 105 mmol/L Normal 98-107 [facility] Comment on above: Performed By: #### B MP #### [facility] [address] [place] [address] Dr. Deepak Greenfield CO2 [Moles/Vol] 27.6 mmol/L Normal 21.0-32.0 [facility] Comment on above: Performed By: #### B MP #### [facility] [address] [place] [address] Dr. Deepak Greenfield Creatinine [Mass/Vol] 0.96 mg/dL Normal 0.70-1.30 [facility] Comment on above: Performed By: #### B MP #### [facility] [address] [place] [address] Dr. Deepak Greenfield EGFR-AF PRYDEINIG >60 Normal >=60 [facility] Comment on above: Performed By: #### B MP #### [facility] [address] [address] [address] Deepak Greenfield EGFR-NON AF PRYDEINIG >60 Normal >=60 [facility] Comment on above: Performed By: #### B MP #### [facility] [address] [place] [address] Dr. Deepak Greenfield Glucose [Mass/Vol] 160 mg/dL Critically high 74-106 [facility] Comment on above: Performed By: #### B MP #### [facility] [address] [place] [address] Dr. Deepak Greenfield Potassium [Moles/Vol] 3.7 mmol/L Normal 3.5-5.1 [facility] Comment on above: Performed By: #### B MP #### [facility] [address] [place] [address] Dr. Deepak Greenfield Sodium [Moles/Vol] 145 mmol/L Normal 136-145 [facility] Comment on above: Performed By: #### B MP #### [facility] [address] [place] [address] Dr. Deepak Greenfield Urea nitrogen [Mass/Vol] 5.0 mg/dL Critically low 7.0-18.0 [facility] Comment on above: Performed By: #### B MP #### [facility] [address] [place] [address] Dr. Deepak Greenfield Urea nitrogen/Creatinine [Mass ratio] 5.2 mg/mg Normal [facility] Comment on above: Performed By: #### B MP #### [facility] [address] [place] [address] Dr. Deepak Greenfield AMMONIAon 07-31-2022 Ammonia (P) [Moles/Vol] 94 umol/L Critically high 11-32 [facility] Comment on above: Performed By: #### M G, CMP #### [facility] [address] [place] [address] Dr. Deepak Greenfield CBC AUTO DIFFon 07-31-2022 BASO # 0.0 103/ul Normal 0.0-0.1 [facility] Comment on above: Performed By: #### B MP #### [facility] [address] [place] [address] Dr. Deepak Greenfield Basophils/100 WBC (Bld) 0.1 % Critically low 0.2-2.0 [facility] Comment on above: Performed By: #### B MP #### [facility] [address] [place] [address] Dr. Deepak Greenfield EO # 0.0 103/ul Normal 0.0-0.7 [facility] Comment on above: Performed By: #### B MP #### [facility] [address] [place] [address] Dr. Deepak Greenfield Eosinophils/100 WBC (Bld) 0.0 % Critically low 0.9-7.0 [facility] Comment on above: Performed By: #### B MP #### [facility] [address] [place] [address] Dr. Deepak Greenfield Erythrocyte distribution width (RBC) [Ratio] 13.1 % Normal 11.0-15.0 [facility] Comment on above: Performed By: #### B MP #### [facility] [address] [place] [address] Dr. Deepak Greenfield Hematocrit (Bld) [Volume fraction] 32.4 % Critically low 42.0-54.0 [facility] Comment on above: Performed By: #### B MP #### [facility] [address] [place] [address] Dr. Deepak Greenfield Hemoglobin (Bld) [Mass/Vol] 10.9 g/dL Critically low 14.0-18.0 [facility] Comment on above: Performed By: #### B MP #### [facility] [address] [place] [address] Dr. Deepak Greenfield IG # 0.02 10e3/ul Normal 0.00-0.03 [facility] Comment on above: Performed By: #### B MP #### [facility] [address] [place] [address] Dr. Deepak Greenfield IG % 0.3 % Normal 0.0-0.5 [facility] Comment on above: Performed By: #### B MP #### [facility] [address] [place] [address] Dr. Deepak Greenfield LYMPH # 2.7 103/ul Normal 1.2-3.8 [facility] Comment on above: Performed By: #### B MP #### [facility] [address] [place] [address] Dr. Deepak Greenfield Lymphocytes/100 WBC (Bld) 38.9 % Normal 20.5-60.0 [facility] Comment on above: Performed By: #### B MP #### [facility] [address] [place] [address] Dr. Deepak Greenfield MANUAL DIFF REQ NO Normal [facility] Comment on above: Performed By: #### B MP #### [facility] [address] [place] [address] Dr. Deepak Greenfield MCH (RBC) [Entitic mass] 32.3 pg Normal 25.9-34.0 [facility] Comment on above: Performed By: #### B MP #### [facility] [address] [place] [address] Dr. Deepak Greenfield MCHC (RBC) [Mass/Vol] 33.6 g/dL Normal 29.9-35.2 [facility] Comment on above: Performed By: #### B MP #### [facility] [address] [place] [address] Dr. Deepak Greenfield MCV (RBC) [Entitic vol] 96.1 fL Critically high 80.0-94.0 [facility] Comment on above: Performed By: #### B MP #### [facility] [address] [place] [address] Dr. Deepak Greenfield MONO # 0.3 103/ul Normal 0.3-0.8 [facility] Comment on above: Performed By: #### B MP #### [facility] [address] [place] [address] Dr. Deepak Greenfield Monocytes/100 WBC (Bld) 4.9 % Normal 1.7-12.0 [facility] Comment on above: Performed By: #### B MP #### [facility] [address] [place] [address] Dr. Deepak Greenfield NEUT # 3.9 103/ul Normal 1.4-6.5 [facility] Comment on above: Performed By: #### B MP #### [facility] [address] [place] [address] Dr. Deepak Greenfield Neutrophils/100 WBC (Bld) 55.8 % Normal 43.0-75.0 [facility] Comment on above: Performed By: #### B MP #### [facility] [address] [place] [address] Dr. Deepak Greenfield Platelet mean volume (Bld) [Entitic vol] 9.7 fL Normal 9.5-13.5 [facility] Comment on above: Performed By: #### B MP #### [facility] [address] [place] [address] Dr. Deepak Greenfield PLT 296 103/ul Normal 150-450 [facility] Comment on above: Performed By: #### B MP #### [facility] [address] [address] [address] Deepak Greenfield RBC 3.37 106/ul Critically low 4.70-6.10 [facility] Comment on above: Performed By: #### B MP #### [facility] [address] [address] [address] Deepak Greenfield WBC 7.0 103/ul Normal 4.0-11.0 [facility] Comment on above: Performed By: #### B MP #### [facility] [address] [place] [address] Dr. Deepak Greenfield PROF CHEM 8 (BAS METB)on Anion gap [Moles/Vol] 14.9 mmol/L Normal [facility] Comment on above: Performed By: #### C BC #### [facility] [address] [place] [address] Dr. Deepak Greenfield Calcium [Mass/Vol] 8.8 mg/dL Normal 8.5-10.1 [facility] Comment on above: Performed By: #### C BC #### [facility] [address] [place] [address] Dr. Deepak Greenfield Chloride [Moles/Vol] 105 mmol/L Normal 98-107 [facility] Comment on above: Performed By: #### C BC #### [facility] [address] [address] [address] Deepak Greenfield CO2 [Moles/Vol] 26.4 mmol/L Normal 21.0-32.0 [facility] Comment on above: Performed By: #### C BC #### [facility] [address] [place] [address] Dr. Deepak Greenfield Creatinine [Mass/Vol] 0.70 mg/dL Normal 0.70-1.30 [facility] Comment on above: Performed By: #### C BC #### [facility] [address] [address] [address] Deepak Greenfield EGFR-AF PRYDEINIG >60 Normal >=60 [facility] Comment on above: Performed By: #### C BC #### [facility] [address] [address] [address] Deepak Greenfield EGFR-NON AF PRYDEINIG >60 Normal >=60 [facility] Comment on above: Performed By: #### C BC #### [facility] [address] [address] [address] Deepak Greenfield Glucose [Mass/Vol] 129 mg/dL Critically high 74-106 [facility] Comment on above: Performed By: #### C BC #### [facility] [address] [place] [address] Dr. Deepak Greenfield Potassium [Moles/Vol] 4.3 mmol/L Normal 3.5-5.1 [facility] Comment on above: Performed By: #### C BC #### [facility] [address] [address] [address] Deepak Greenfield Sodium [Moles/Vol] 142 mmol/L Normal 136-145 [facility] Comment on above: Performed By: #### C BC #### [facility] [address] [place] [address] Dr. Deepak Greenfield Urea nitrogen [Mass/Vol] 6.0 mg/dL Critically low 7.0-18.0 [facility] Comment on above: Performed By: #### C BC #### [facility] [address] [place] [address] Dr. Deepak Greenfield Urea nitrogen/Creatinine [Mass ratio] 8.6 mg/mg Normal [facility] Comment on above: Performed By: #### C BC #### [facility] [address] [place] [address] Dr. Deepak Greenfield AMMONIAon 07-30-2022 Ammonia (P) [Moles/Vol] 64 umol/L Critically high 11-32 [facility] Comment on above: Performed By: #### C BC #### [facility] [facility] [address] [place] [address] Dr. Deepak Greenfield CBC AUTO DIFFon 07-30-2022 BASO # 0.0 103/ul Normal 0.0-0.1 [facility] Comment on above: Performed By: #### I NFLUAB #### [facility] [address] [place] [address] Dr. Deepak Greenfield Basophils/100 WBC (Bld) 0.0 % Critically low 0.2-2.0 [facility] Comment on above: Performed By: #### I NFLUAB #### [facility] [address] [place] [address] Dr. Deepak Greenfield EO # 0.0 103/ul Normal 0.0-0.7 [facility] Comment on above: Performed By: #### I NFLUAB #### [facility] [address] [place] [address] Dr. Deepak Greenfield Eosinophils/100 WBC (Bld) 0.0 % Critically low 0.9-7.0 [facility] Comment on above: Performed By: #### I NFLUAB #### [facility] [address] [place] [address] Dr. Deepak Greenfield Erythrocyte distribution width (RBC) [Ratio] 13.1 % Normal 11.0-15.0 [facility] Comment on above: Performed By: #### I NFLUAB #### [facility] [address] [place] [address] Dr. Deepak Greenfield Hematocrit (Bld) [Volume fraction] 31.4 % Critically low 42.0-54.0 [facility] Comment on above: Performed By: #### I NFLUAB #### [facility] [address] [place] [address] Dr. Deepak Greenfield Hemoglobin (Bld) [Mass/Vol] 10.5 g/dL Critically low 14.0-18.0 [facility] Comment on above: Performed By: #### I NFLUAB #### [facility] [address] [place] [address] Dr. Deepak Greenfield IG # 0.01 10e3/ul Normal 0.00-0.03 [facility] Comment on above: Performed By: #### I NFLUAB #### [facility] [address] [place] [address] Dr. Deepak Greenfield IG % 0.2 % Normal 0.0-0.5 [facility] Comment on above: Performed By: #### I NFLUAB #### [facility] [address] [place] [address] Dr. Deepak Greenfield LYMPH # 1.5 103/ul Normal 1.2-3.8 [facility] Comment on above: Performed By: #### I NFLUAB #### [facility] [address] [place] [address] Dr. Deepak Greenfield Lymphocytes/100 WBC (Bld) 27.5 % Normal 20.5-60.0 [facility] Comment on above: Performed By: #### I NFLUAB #### [facility] [address] [place] [address] Dr. Deepak Greenfield MANUAL DIFF REQ NO Normal [facility] Comment on above: Performed By: #### I NFLUAB #### [facility] [address] [place] [address] Dr. Deepak Greenfield MCH (RBC) [Entitic mass] 32.4 pg Normal 25.9-34.0 [facility] Comment on above: Performed By: #### I NFLUAB #### [facility] [address] [place] [address] Dr. Deepak Greenfield MCHC (RBC) [Mass/Vol] 33.4 g/dL Normal 29.9-35.2 [facility] Comment on above: Performed By: #### I NFLUAB #### [facility] [address] [place] [address] Dr. Deepak Greenfield MCV (RBC) [Entitic vol] 96.9 fL Critically high 80.0-94.0 [facility] Comment on above: Performed By: #### I NFLUAB #### [facility] [address] [place] [address] Dr. Deepak Greenfield MONO # 0.2 103/ul Critically low 0.3-0.8 [facility] Comment on above: Performed By: #### I NFLUAB #### [facility] [address] [place] [address] Dr. Deepak Greenfield Monocytes/100 WBC (Bld) 2.9 % Normal 1.7-12.0 [facility] Comment on above: Performed By: #### I NFLUAB #### [facility] [address] [place] [address] Dr. Deepak Greenfield NEUT # 3.8 103/ul Normal 1.4-6.5 [facility] Comment on above: Performed By: #### I NFLUAB #### [facility] [address] [place] [address] Dr. Deepak Greenfield Neutrophils/100 WBC (Bld) 69.4 % Normal 43.0-75.0 [facility] Comment on above: Performed By: #### I NFLUAB #### [facility] [address] [place] [address] Dr. Deepak Greenfield Platelet mean volume (Bld) [Entitic vol] 9.4 fL Critically low 9.5-13.5 [facility] Comment on above: Performed By: #### I NFLUAB #### [facility] [address] [place] [address] Dr. Deepak Greenfield PLT 256 103/ul Normal 150-450 [facility] Comment on above: Performed By: #### I NFLUAB #### [facility] [address] [place] [address] Dr. Deepak Greenfield RBC 3.24 106/ul Critically low 4.70-6.10 [facility] Comment on above: Performed By: #### I NFLUAB #### [facility] [address] [place] [address] Dr. Deepak Greenfield WBC 5.5 103/ul Normal 4.0-11.0 [facility] Comment on above: Performed By: #### I NFLUAB #### [facility] [address] [place] [address] Dr. Deepak Greenfield Coding Summary.on 07-30-2022 Coding Summary. CD:[id number] W w+PGhlYWQ+[id number] [id number] HRWHOEeKQmQakrQnAO6um XNjZXJu IC8+OU7jTEChEgcafQOas 1G1jJE8I64dpx1mDYxktB B4OMYeDaDjdqfjk2hedKy 6IDcuNmluOyBt WPFjaJ01MIA8wR89Pf86v AAbmAMar5ppeWl6RnVfHW EgEMQ5xQqnXCuff1RnKZH tY00ooHSif6C6 NTDlbSoelQEeRdTdnXR3c E8xNRxhcqazy7sjxbeiDu x0jq36kKEqi5K4cFL8E9P pvsU1XSTetBOi UuzpbVPXfO9ymiaxc4rou qynUwLyVNGeIWa9FMm8MO WdhWgxVhTwAL25CJE5VON cauRhN2ChXCFu uTbkGqY4m2D8Zm5PW3PIL oczO2RBSTALWZfaxZR+PC 25ky20J9MjEmxpDqv7XHG tKZK0iSA4eA1y HFYpQQvyt7C0zAY7H0Tjm fRgpr6uj8uoQRRdWEvmI9 7psUExq9E1SFUmyVR8QBV suYjiWsJzxI20 Oyc+RJUeeMyvs0DxHnmap 4tvb0xjgTi6TkmvGDMxch HnaWgwECP9x9JtGt5aBUJ egEK3eWY6fS4z PjZsRtI7JBdsE517GfSuv GHhJyiiK14yW7IcuYV+PH ApNnb9WBBtoIadCG3kX1L hZGRpbmctbGVm dLjiZJ8wBAEpvgxdBJPkc V7qPAOxY8y6FuGmFsO1NI laH4EiTKDrjkolOj67qA3 fSePgGoR9ONim W9OuxmI3JGZqcGUhAJjoU VK2S16dp8N4VIIhNPQqJU M6rUZ2wN1spOdtjagbyYV mdDsgdmVydGlj KVawBWvoI766MQWodFvcF kNvZGluZyBEYXRlOiAgMD QvMTMvMjAyMzwvdGQ+PHR zFVK4sFonMJVu mFDiQPqaHo8weDsdzEepZ J1rCRErymavFCDhvU4jVM XdfEDoyCpbJM8tWEEawau wk471YoGyLJF9 KYJmdLGpE5FrhV6uLfDcL CVzDKUcT9UsiZOuRGywU3 89DTuyEsR4YJWjmvYiF5N sLWFsaWduOiB0 f0K3Dm4Xt0QufjihN5Rfz QGcPzIzBaxnECq7Q5HtOp wvdHI+SX88RRSrSC00TYq 3NNA9aHptTOmy SAKkT4UklC3vUfSoMIDvH GRkOyc+PHRhYmxlIHdpZH RoPScxMDAlJyBzdHlsZT0 bVw0lHXZdKNJa pXmjaELaZtRyv1inIBHkQ AmwOJ3ghQmdK3WbvHU4RT Krq3k6Fh65V38fO5LbpXT +QHWzeGB7mJM9 mN8kAfOzDnE1RBkmR293Q bXdxNHaZeglv6dve6uapN e0GjG3GXMbomTxcYgeJVC 8r3HmQq48U66m IHdpZHRoPSIxNSUiIHZhb Hrieq4xrG2bDs3+PGNvbC N9aIM2rO4yXyHmRjT5TGk xV245QeLkhKHp Grdeg0hgl2nppWe6UtYaY XDdcvYzvGrsIXX0e5ApGr 77W9KkjDegy3PcFmh9gx7 0qYFlq1K2vUD6 W3TiJXDvyseuzPCzmNmmE D9iAMVuslzvPQZrkV1rUW XjF6z7ClUjMsH5UUceM9P klkR6QMPfeYEv OJSryPAKtM2fdllay3pze abgIsNbZTGxEOf2HPg8JT YfqBpgInFnMZY4JoK2CZP 7mCPccO7jtRnn ywrnzG7mXdy+PLN6aMVge MGKIG1sZdrdoNE+PHRkIH W7qRbtVZhcNFPbiQ6nARO jA5x3SeCkMkE6 IFwjL4CuabR2RICuiQUmY HUkvAROeX4udmlle2ukvi jkAgHrPBStTOg2BVi1GZB saWduOiBsZWZ0 MuR0GAQ1pOMfkJ5msWzbw jdkcI5wPwh+QmlydGggRG F3IMd6L3OmWll0JVNrbAi sKN5efAEjRCvs Td2giCjthVwzPU8zZBHyg fbvz381ZiKsh9koBTEvjC OsYCmuHBD7C24ke1O1PTL wRADdEKN2sVW6 eM7onJjbcbatlZXzkUaoa rQmzBziLKbpLAicT266YM ZvvHmxAuUjTHs0M9YoBpy 8XROdtWogET3g cBDjPGjyKg0bxPjxzCgxF C8jFCRbiemnx041AzUrj5 afBPVqmNNdVXmfQFK3F78 ro8M4YIIdKQBe NMY2pGW9cF0hbZdwgprkg GVmdDsgdmVydGljYWwtYW fiU869HLQojIfnOaNovNn 0U0LpHvi3GBEg dKmjZP1baBJaZHgoYr3xz XsnrWybUO6zHOAfcrkan9 90QvBcd3hoYNGjoJWkJYx tGJD4C01zp9R3 NSKwQUPxLNC1lTS8jN1yq GlnbjogbGVmdDsgdmVydG ttQWwoVRpoV997QHMitYp nPlBhdGllbnQg XEeoSOb3S2JiEufxlHX+P G93XWEaJW77lBMwqANid7 ukvQq6LpWiLTMtFOF1kPu xXWmqi9WvFTBt N45klOCqm0G3IFBtrRden YDsCzCkyRF2eB3lBOhjtl bjc3ukudjyOqwtl1ugyb4 1zW14E36rHKtn ZHRoPSIzMCUiIHZhbGlnb f2nuI9oZv0+BIGkaUV0fF Y9kN6qKATkQiB2ARdcP96 9InRvcCIvPjxj j3urt1vuiVi0CcK5EMKgc bEzzLxhWPM8k9AgRr03G6 9sIHdpZHRoPSIyMCUiIHZ yhPlwla4thF4v Ii8+CWMylTP0tOR3yX0hQ aXkIjZ4CXxqL914BoAaoU HlIiviI22mB4LkmEX+PHR hXpr8ZAMjnUjq WP8rzAExTCpwYj7aFYQ7A pHkBdYvNUlrU3MdXVCzyw qpnbdsbIY5HOCzDGDyeE9 3Lo6scPmpXEYy sUDJgL9hmhwua8kyavncR vPzDVHqVJv1UFw4QLXvmV iiOpMrJPZ3DwL6BLS2dIK zuI0xfNmahino bH7vB6UkSWMqfsuaZn11l C7tVtMdRtM2MKkeGha+U0 3UWSYZLUMVFQSUAhBKOA2 0AM18lAZoe2V9 eBJ2R1DsGXObftiiujymz QX1WCKbAJHnjY52hXHbDX veBc6jk9R9g978HTJuSMG swS37Wo2zxYzc EOVvwZIKjF1fcizag9vyb wbkLeNaAJHkKBz9WHs7GD GtuIjoGuZcLDR6LeH6TGK 7yIMipA8foGzq cxsrjQ7aHzp+MTAvMTYvM Cj0MGedlWE+SATvDPL4iO yrFTnaHGLzdL1aIZJlL0q 6PnVsFvM4CYwq X9XxJWCnlqxgLi97fL8fF bWtBgC3CIzqC7CzwqE0AD GooSHkALgsSZN7N59ui4G 7NVJgBAGtUGC1 dGS4xI1jjBpsfaijvLUqg DsgdmVydGljYWwtYWxpZ2 46IHRvcDsnPjQyIFllYXJ bTV64ZP03cGIs l6S2vGX2D7TxHEIzxdsut bvpsIP7PYMvCBDqpN83yB EjQQjxSe5zt3T7u742YFS wSQGnfS03Bm2x uXqyCWPloCSRxO0cumiso 8sqmjvuVtNmWXGeSEj1KR r8MDKvyAetEgZmNKA0QjY 4EGT0qZQdtC3t qNnhbvzjhM4bUhh+TWFsZ TwvdGQ+VYDbWXP5rQgkLN arGUWelP1qBDAwC9c0OvM kKhN1DQkfM4Gc BCCdlzkeTl73qZ6aVyEjA eS7IFxaI5SrxdH6DTMcpL PhXMllVNZ4H36ch7U6LYM vCOGqKQT6vAG7 vW5hiYxmyhysrLFrfAjrv vUrmBerROmzOJqiP368GS KgySbfBw41fHRzeQofpnH 7H3VrVmwfpSB+ QD61LFMpET30aEElcCXkw 4gpsVv5DhIzTNEbDIM8yO reKVdgw9OtGXYqS16kuCI rl4H0BQSijQug oWGuVdJkvMI7hQ4dOWksr nwwr7txcuzrBxvnh5shkb 31iW11V74wYQrkHQWwQNF zMCUiIHZhbGln zc0qmV3eZc2+XMIcyHF2r LX6cX3vKpYkCkC0NLdzG7 95XoDpvPHeBnvfv6ozb4v kfNv5EuHaJEWi fqSctJtfCGN9h5ZmCb79K 29sIHdpZHRoPSIyMCUiIH TnlTgkcz2spJ5yPa9+PC9 ao6xfkc05nW23 dHI+ITEzMWT2jNsiBZprA EBcbC2iEAdaIvW8CJAmVi McoE88wUIgKPiuOs5wsOz cvVdeKM2aPWSq nhcil570JgWlq3phOHWto FGzRWdoYJE9H81tm4H8XN QqQNZrERP7lJK5xO6gvAs nbjogbGVmdDsg ioDphEnwOMdxRPngR644L AGblRpePzTxxMNaL5ywsr KAQD0kHaychGE+PHRkIHN 0eWxlPSdwYWRk tL1nPWChQ8n4CcVsIhV0U LiiJ3AjlxD7WOQbjZNsNR LurDDBmB5jyctdg4gerah gIzAwMDAwMDt0 JWr3TRGnqNuyOyWpDJM5T gJ3WOT6mFTxbH6yuYtcfr lxwQ0tFpf+RklOOjwvdGQ +CYGeUTV8vYtt OLpyEKGjfL4wCRUfJ0g2Q kBoJaK4NZtlS7RnjiZ1HT VuhZExHJApkRQBjX6hrsk py7qjnjwnHwVk GXSxADz3YAt5HVGtlOmsC hYyAQO7UtC4XLO3hYTpkB 2pyCulbqibxX1oIeu+TVJ OOjwvdGQ+PHRk BDP6xCtaSSqcBXNmmZ5qB DYhQ9o1ZpAhBxF1BCavA2 PldoQ4WODqmUGeLKCoxUU RsY6zaedwp5ai otakGtPmKYXdHGb1CCr0L SAxhUhjOfZgOZF4LhB7ZC C2jZQiwM7vwZwegnpbsY8 wOyc+VZS6BNN7 SM00YP95J2NvQoogiNLdf +PHRhYmxlIHdpZHRoPS idWXFdKqAevLckLN7tOx2 yZGVyLWNvbGxh cHNlOiBj (more content not included)... Normal [facility] [place] [facility] PROF CHEM 8 (BAS METB)on Anion gap [Moles/Vol] 8.3 mmol/L Normal [facility] Comment on above: Performed By: #### I NFLUAB #### [facility] [address] [place] [address] Dr. Deepak Greenfield Calcium [Mass/Vol] 8.5 mg/dL Normal 8.5-10.1 [facility] Comment on above: Performed By: #### I NFLUAB #### [facility] [address] [address] [address] Deepak Greenfield Chloride [Moles/Vol] 104 mmol/L Normal 98-107 [facility] Comment on above: Performed By: #### I NFLUAB #### [facility] [address] [place] [address] Dr. Deepak Greenfield CO2 [Moles/Vol] 30.0 mmol/L Normal 21.0-32.0 [facility] Comment on above: Performed By: #### I NFLUAB #### [facility] [address] [address] [address] Deepak Greenfield Creatinine [Mass/Vol] 0.46 mg/dL Critically low 0.70-1.30 [facility] Comment on above: Performed By: #### I NFLUAB #### [facility] [address] [place] [address] Dr. Deepak Greenfield EGFR-AF PRYDEINIG >60 Normal >=60 [facility] Comment on above: Performed By: #### I NFLUAB #### [facility] [address] [place] [address] Dr. Deepak Greenfield EGFR-NON AF PRYDEINIG >60 Normal >=60 [facility] Comment on above: Performed By: #### I NFLUAB #### [facility] [address] [place] [address] Dr. Deepak Greenfield Glucose [Mass/Vol] 152 mg/dL Critically high 74-106 [facility] Comment on above: Performed By: #### I NFLUAB #### [facility] [address] [place] [address] Dr. Deepak Greenfield Potassium [Moles/Vol] 4.3 mmol/L Normal 3.5-5.1 [facility] Comment on above: Performed By: #### I NFLUAB #### [facility] [address] [place] [address] Dr. Deepak Greenfield Sodium [Moles/Vol] 138 mmol/L Normal 136-145 [facility] Comment on above: Performed By: #### I NFLUAB #### [facility] [address] [place] [address] Dr. Deepak Greenfield Urea nitrogen [Mass/Vol] 9.0 mg/dL Normal 7.0-18.0 [facility] Comment on above: Performed By: #### I NFLUAB #### [facility] [address] [place] [address] Dr. Deepak Greenfield Urea nitrogen/Creatinine [Mass ratio] 19.6 mg/mg Normal [facility] Comment on above: Performed By: #### I NFLUAB #### [facility] [address] [place] [address] Dr. Deepak Greenfield AMMONIAon 07-29-2022 Ammonia (P) [Moles/Vol] 69 umol/L Critically high 11-32 [facility] Comment on above: Performed By: #### A MM #### [facility] [address] [place] [address] Dr. Deepka Greenfield CBC AUTO DIFFon 07-29-2022 BASO # 0.0 103/ul Normal 0.0-0.1 [facility] Comment on above: Performed By: #### M G, CMP #### [facility] [address] [place] [address] Dr. Deepak Greenfield Basophils/100 WBC (Bld) 0.2 % Normal 0.2-2.0 [facility] Comment on above: Performed By: #### M G, CMP #### [facility] [address] [place] [address] Dr. Deepak Greenfield EO # 0.0 103/ul Normal 0.0-0.7 [facility] Comment on above: Performed By: #### M G, CMP #### [facility] [address] [place] [address] Dr. Deepak Greenfield Eosinophils/100 WBC (Bld) 0.0 % Critically low 0.9-7.0 [facility] Comment on above: Performed By: #### M G, CMP #### [facility] [address] [place] [address] Dr. Deepak Greenfield Erythrocyte distribution width (RBC) [Ratio] 13.2 % Normal 11.0-15.0 [facility] Comment on above: Performed By: #### M G, CMP #### [facility] [address] [place] [address] Dr. Deepak Greenfield Hematocrit (Bld) [Volume fraction] 33.1 % Critically low 42.0-54.0 [facility] Comment on above: Performed By: #### M G, CMP #### [facility] [address] [place] [address] Dr. Deepak Greenfield Hemoglobin (Bld) [Mass/Vol] 10.8 g/dL Critically low 14.0-18.0 [facility] Comment on above: Performed By: #### M G, CMP #### [facility] [address] [place] [address] Dr. Deepak Greenfield IG # 0.04 10e3/ul Critically high 0.00-0.03 [facility] Comment on above: Performed By: #### M G, CMP #### [facility] [address] [place] [address] Dr. Deepak Greenfield IG % 0.5 % Normal 0.0-0.5 [facility] Comment on above: Performed By: #### M G, CMP #### [facility] [address] [address] [address] Deepak Greenfield LYMPH # 1.1 103/ul Critically low 1.2-3.8 [facility] Comment on above: Performed By: #### M G, CMP #### [facility] [address] [address] [address] Deepak Greenfield Lymphocytes/100 WBC (Bld) 13.6 % Critically low 20.5-60.0 [facility] Comment on above: Performed By: #### M G, CMP #### [facility] [address] [address] [address] Deepak Greenfield MANUAL DIFF REQ NO Normal [facility] Comment on above: Performed By: #### M G, CMP #### [facility] [address] [place] [address] Dr. Deepak Greenfield MCH (RBC) [Entitic mass] 32.2 pg Normal 25.9-34.0 [facility] Comment on above: Performed By: #### M G, CMP #### [facility] [address] [place] [address] Dr. Deepak Greenfield MCHC (RBC) [Mass/Vol] 32.6 g/dL Normal 29.9-35.2 [facility] Comment on above: Performed By: #### M G, CMP #### [facility] [address] [place] [address] Dr. Deepak Greenfield MCV (RBC) [Entitic vol] 98.8 fL Critically high 80.0-94.0 [facility] Comment on above: Performed By: #### M G, CMP #### [facility] [address] [address] [address] Deepak Greenfield MONO # 0.3 103/ul Normal 0.3-0.8 [facility] Comment on above: Performed By: #### M G, CMP #### [facility] [address] [place] [address] Dr. Deepak Greenfield Monocytes/100 WBC (Bld) 3.8 % Normal 1.7-12.0 [facility] Comment on above: Performed By: #### M G, CMP #### [facility] [address] [address] [address] Deepak Greenfield NEUT # 6.7 103/ul Critically high 1.4-6.5 [facility] Comment on above: Performed By: #### M G, CMP #### [facility] [address] [address] [address] Deepak Greenfield Neutrophils/100 WBC (Bld) 81.9 % Critically high 43.0-75.0 [facility] Comment on above: Performed By: #### M G, CMP #### [facility] [address] [address] [address] Deepak Greenfield Platelet mean volume (Bld) [Entitic vol] 9.6 fL Normal 9.5-13.5 [facility] Comment on above: Performed By: #### M G, CMP #### [facility] [address] [address] [address] Deepak Greenfield PLT 257 103/ul Normal 150-450 [facility] Comment on above: Performed By: #### M G, CMP #### [facility] [address] [place] [address] Dr. Deepak Greenfield RBC 3.35 106/ul Critically low 4.70-6.10 [facility] Comment on above: Performed By: #### M G, CMP #### [facility] [address] [address] [address] Deepak Greenfield WBC 8.2 103/ul Normal 4.0-11.0 [facility] Comment on above: Performed By: #### M G, CMP #### [facility] [address] [address] [address] Deepak Greenfield LACTATE/LACTIC ACIDon 2022 Lactate [Moles/Vol] 1.1 mmol/L Normal 0.4-2.0 [facility] Comment on above: Performed By: #### I NFLUAB #### [facility] [address] [place] [address] Dr. Deepak Greenfield PROF CHEM 8 (BAS METB)on Anion gap [Moles/Vol] 9.4 mmol/L Normal [facility] Comment on above: Performed By: #### I NFLUAB #### [facility] [address] [place] [address] Dr. Deepak Greenfield Calcium [Mass/Vol] 8.0 mg/dL Critically low 8.5-10.1 [facility] Comment on above: Performed By: #### I NFLUAB #### [facility] [address] [place] [address] Dr. Deepak Greenfield Chloride [Moles/Vol] 105 mmol/L Normal 98-107 [facility] Comment on above: Performed By: #### I NFLUAB #### [facility] [address] [place] [address] Dr. Deepak Greenfield CO2 [Moles/Vol] 30.7 mmol/L Normal 21.0-32.0 [facility] Comment on above: Performed By: #### I NFLUAB #### [facility] [address] [place] [address] Dr. Deepak Greenfield Creatinine [Mass/Vol] 0.66 mg/dL Critically low 0.70-1.30 [facility] Comment on above: Performed By: #### I NFLUAB #### [facility] [address] [place] [address] Dr. Deepak Greenfield EGFR-AF PRYDEINIG >60 Normal >=60 [facility] Comment on above: Performed By: #### I NFLUAB #### [facility] [address] [place] [address] Dr. Deepak Greenfield EGFR-NON AF PRYDEINIG >60 Normal >=60 [facility] Comment on above: Performed By: #### I NFLUAB #### [facility] [address] [place] [address] Dr. Deepak Greenfield Glucose [Mass/Vol] 177 mg/dL Critically high 74-106 T [facility] Comment on above: Performed By: #### I NFLUAB #### [facility] [address] [place] [address] Dr. Deepak Greenfield Potassium [Moles/Vol] 4.1 mmol/L Normal 3.5-5.1 [facility] Comment on above: Performed By: #### I NFLUAB #### [facility] [address] [place] [address] Dr. Deepak Greenfield Sodium [Moles/Vol] 141 mmol/L Normal 136-145 [facility] Comment on above: Performed By: #### I NFLUAB #### [facility] [address] [place] [address] Dr. Deepak Greenfield Urea nitrogen [Mass/Vol] 9.0 mg/dL Normal 7.0-18.0 [facility] Comment on above: Performed By: #### I NFLUAB #### [facility] [address] [place] [address] Dr. Deepak Greenfield Urea nitrogen/Creatinine [Mass ratio] 13.6 mg/mg Normal [facility] Comment on above: Performed By: #### I NFLUAB #### [facility] [address] [place] [address] Dr. Deepak Greenfield AMMONIAon 07-28-2022 Ammonia (P) [Moles/Vol] 68 umol/L Critically high 11-32 [facility] Comment on above: Performed By: #### B MP #### [facility] [address] [place] [address] Dr. Deepak Greenfield CBC AUTO DIFFon 07-28-2022 BASO # 0.0 103/ul Normal 0.0-0.1 [facility] Comment on above: Performed By: #### C BC #### [facility] [address] [place] [address] Dr. Deepak Greenfield Basophils/100 WBC (Bld) 0.3 % Normal 0.2-2.0 [facility] Comment on above: Performed By: #### C BC #### [facility] [address] [place] [address] Dr. Deepak Greenfield EO # 0.0 103/ul Normal 0.0-0.7 [facility] Comment on above: Performed By: #### C BC #### [facility] [address] [place] [address] Dr. Deepak Greenfield Eosinophils/100 WBC (Bld) 0.0 % Critically low 0.9-7.0 [facility] Comment on above: Performed By: #### C BC #### [facility] [address] [place] [address] Dr. Deepak Greenfield Erythrocyte distribution width (RBC) [Ratio] 13.3 % Normal 11.0-15.0 [facility] Comment on above: Performed By: #### C BC #### [facility] [address] [place] [address] Dr. Deepak Greenfield Hematocrit (Bld) [Volume fraction] 37.0 % Critically low 42.0-54.0 [facility] Comment on above: Performed By: #### C BC #### [facility] [address] [place] [address] Dr. Deepak Greenfield Hemoglobin (Bld) [Mass/Vol] 12.3 g/dL Critically low 14.0-18.0 [facility] Comment on above: Performed By: #### C BC #### [facility] [address] [place] [address] Dr. Deepak Greenfield IG # 0.06 10e3/ul Critically high 0.00-0.03 [facility] Comment on above: Performed By: #### C BC #### [facility] [address] [place] [address] Dr. Deepak Greenfield IG % 0.5 % Normal 0.0-0.5 [facility] [facility] Comment on above: Performed By: #### C BC #### [facility] [address] [place] [address] Dr. Deepak Greenfield LYMPH # 2.9 103/ul Normal 1.2-3.8 [facility] Comment on above: Performed By: #### C BC #### [facility] [address] [place] [address] Dr. Deepak Greenfield Lymphocytes/100 WBC (Bld) 23.5 % Normal 20.5-60.0 [facility] Comment on above: Performed By: #### C BC #### [facility] [address] [place] [address] Dr. Deepak Greenfield MANUAL DIFF REQ NO Normal [facility] Comment on above: Performed By: #### C BC #### [facility] [address] [place] [address] Dr. Deepak Greenfield MCH (RBC) [Entitic mass] 32.4 pg Normal 25.9-34.0 [facility] Comment on above: Performed By: #### C BC #### [facility] [address] [place] [address] Dr. Deepak Greenfield MCHC (RBC) [Mass/Vol] 33.2 g/dL Normal 29.9-35.2 [facility] Comment on above: Performed By: #### C BC #### [facility] [address] [place] [address] Dr. Deepak Greenfield MCV (RBC) [Entitic vol] 97.4 fL Critically high 80.0-94.0 [facility] Comment on above: Performed By: #### C BC #### [facility] [address] [place] [address] Dr. Deepak Greenfield MONO # 1.0 103/ul Critically high 0.3-0.8 [facility] Comment on above: Performed By: #### C BC #### [facility] [address] [place] [address] Dr. Deepak Greenfield Monocytes/100 WBC (Bld) 8.0 % Normal 1.7-12.0 [facility] Comment on above: Performed By: #### C BC #### [facility] [address] [place] [address] Dr. Deepak Greenfield NEUT # 8.3 103/ul Critically high 1.4-6.5 [facility] Comment on above: Performed By: #### C BC #### [facility] [address] [place] [address] Dr. Deepak Greenfield Neutrophils/100 WBC (Bld) 67.7 % Normal 43.0-75.0 [facility] Comment on above: Performed By: #### C BC #### [facility] [address] [place] [address] Dr. Deepak Greenfield Platelet mean volume (Bld) [Entitic vol] 9.7 fL Normal 9.5-13.5 [facility] Comment on above: Performed By: #### C BC #### [facility] [address] [place] [address] Dr. Deepak Greenfield PLT 325 103/ul Normal 150-450 [facility] Comment on above: Performed By: #### C BC #### [facility] [address] [place] [address] Dr. Deepak Greenfield RBC 3.80 106/ul Critically low 4.70-6.10 [facility] Comment on above: Performed By: #### C BC #### [facility] [address] [place] [address] Dr. Deepak Greenfield WBC 12.2 103/ul Critically high 4.0-11.0 [facility] Comment on above: Performed By: #### C BC #### [facility] [address] [place] [address] Dr. Deepak Greenfield CULTURE BLOODon 07-28-2022 Microscopic examination of blood, culture Culture Observations: NO GROWTH AT 5 DAYS. Normal [facility] Comment on above: Performed By: #### B [id number] #### [facility] [address] [place] [address] Dr. Deepak Greenfield Microscopic examination of blood, culture Culture Observations: NO GROWTH AT 5 DAYS. Normal [facility] Comment on above: Performed By: #### C BC #### [facility] [address] [place] [address] Dr. Deepak Greenfield LACTATE/LACTIC ACIDon 2022 Lactate [Moles/Vol] 2.5 mmol/L Critically high 0.4-2.0 [facility] Comment on above: Performed By: #### C VDTBH #### [facility] [address] [place] [address] Dr. Deepak Greenfield PROF 14(COMP METB)on 023 Albumin [Mass/Vol] 3.1 g/dL Critically low 3.4-5.0 [facility] Comment on above: Performed By: #### C BC #### [facility] [address] [place] [address] Dr. Deepak Greenfield Albumin/Globulin [Mass ratio] 0.7 {ratio} Normal [facility] Comment on above: Performed By: #### C BC #### [facility] [address] [address] [address] Deepak Greenfield ALP [Catalytic activity/Vol] 51 U/L Normal 46-116 [facility] Comment on above: Performed By: #### C BC #### [facility] [address] [place] [address] Dr. Deepak Greenfield ALT [Catalytic activity/Vol] 106 U/L Critically high 16-63 [facility] Comment on above: Performed By: #### C BC #### [facility] [address] [place] [address] Dr. Deepak Greenfield Anion gap [Moles/Vol] 14.2 mmol/L Normal [facility] Comment on above: Performed By: #### C BC #### [facility] [address] [place] [address] Dr. Deepak Greenfield AST [Catalytic activity/Vol] 81 U/L Critically high 15-37 [facility] Comment on above: Performed By: #### C BC #### [facility] [address] [place] [address] Dr. Deepak Greenfield Bilirubin [Mass/Vol] 0.4 mg/dL Normal 0.2-1.0 [facility] Comment on above: Performed By: #### C BC #### [facility] [address] [place] [address] Dr. Deepak Greenfield Calcium [Mass/Vol] 8.9 mg/dL Normal 8.5-10.1 [facility] Comment on above: Performed By: #### C BC #### [facility] [address] [place] [address] Dr. Deepak Greenfield Chloride [Moles/Vol] 105 mmol/L Normal 98-107 [facility] Comment on above: Performed By: #### C BC #### [facility] [address] [place] [address] Dr. Deepak Greenfield CO2 [Moles/Vol] 27.9 mmol/L Normal 21.0-32.0 [facility] Comment on above: Performed By: #### C BC #### [facility] [address] [place] [address] Dr. Deepak Greenfield Creatinine [Mass/Vol] 0.77 mg/dL Normal 0.70-1.30 [facility] Comment on above: Performed By: #### C BC #### [facility] [address] [place] [address] Dr. Deepak Greenfield EGFR-AF PRYDEINIG >60 Normal >=60 [facility] Comment on above: Performed By: #### C BC #### [facility] [address] [place] [address] Dr. Deepak Greenfield EGFR-NON AF PRYDEINIG >60 Normal >=60 [facility] Comment on above: Performed By: #### C BC #### [facility] [address] [place] [address] Dr. Deepak Greenfield Globulin (S) [Mass/Vol] 4.3 g/dL Normal [facility] Comment on above: Performed By: #### C BC #### [facility] [address] [place] [address] Dr. Deepak Greenfield Glucose [Mass/Vol] 162 mg/dL Critically high 74-106 [facility] Comment on above: Performed By: #### C BC #### [facility] [address] [place] [address] Dr. Deepak Greenfield Potassium [Moles/Vol] 4.1 mmol/L Normal 3.5-5.1 [facility] Comment on above: Performed By: #### C BC #### [facility] [address] [place] [address] Dr. Deepak Greenfield Protein [Mass/Vol] 7.4 g/dL Normal 6.4-8.2 [facility] Comment on above: Performed By: #### C BC #### [facility] [address] [place] [address] Dr. Deepak Greenfield Sodium [Moles/Vol] 143 mmol/L Normal 136-145 [facility] Comment on above: Performed By: #### C BC #### [facility] [address] [place] [address] Dr. Deepak Greenfield Urea nitrogen [Mass/Vol] 12.0 mg/dL Normal 7.0-18.0 [facility] Comment on above: Performed By: #### C BC #### [facility] [address] [place] [address] Dr. Deepak Greenfield Urea nitrogen/Creatinine [Mass ratio] 15.6 mg/mg Normal [facility] Comment on above: Performed By: #### C BC #### [facility] [address] [place] [address] Dr. Deepak Greenfield RESPIRATORY PANEL PLUSon Adenovirus Not detected Normal NOT DETECTED [facility] Comment on above: Performed By: #### B MP #### [facility] [address] [place] [address] Dr. Deepak Ocampo Parapertusis Not detected Normal NOT DETECTED [facility] Comment on above: Performed By: #### B MP #### [facility] [address] [place] [address] Dr. Deepak Ocampo Pertussis Not detected Normal NOT DETECTED [facility] Comment on above: Performed By: #### B MP #### [facility] [address] [place] [address] Dr. Deepak Greenfield Chlamydia Pneumoniae Not detected Normal NOT DETECTED [facility] Comment on above: Performed By: #### B MP #### [facility] [address] [place] [address] Dr. Deepak Greenfield Coronavirus 229E Not detected Normal NOT DETECTED [facility] Comment on above: Performed By: #### B MP #### [facility] [address] [place] [address] Dr. Deepak Greenfield Coronavirus HKU1 Not detected Normal NOT DETECTED [facility] Comment on above: Performed By: #### B MP #### [facility] [address] [place] [address] Dr. Deepak Greenfield Coronavirus NL63 Not detected Normal NOT DETECTED [facility] Comment on above: Performed By: #### B MP #### [facility] [address] [address] [address] Deepak Greenfield Coronavirus OC43 Not detected Normal NOT DETECTED [facility] Comment on above: Performed By: #### B MP #### [facility] [address] [address] [address] Deepak Greenfield Influenza A H1 Not detected Normal NOT DETECTED [facility] Comment on above: Performed By: #### B MP #### [facility] [address] [address] [address] Deepak Greenfield Influenza A H1 2009 Not detected Normal NOT DETECTED [facility] Comment on above: Performed By: #### B MP #### [facility] [address] [address] [address] Deepak Greenfield Influenza A H3 Not detected Normal NOT DETECTED [facility] Comment on above: Performed By: #### B MP #### [facility] [address] [address] [address] Deepak Greenfield Influenza B Not detected Normal NOT DETECTED [facility] Comment on above: Performed By: #### B MP #### [facility] [address] [address] [address] Deepak Greenfield Metapneumovirus Detected Abnormal NOT DETECTED [facility] Comment on above: Performed By: #### B MP #### [facility] [address] [address] [address] Deepak Greenfield Mycoplas. Pneumoniae Not detected Normal NOT DETECTED [facility] Comment on above: Performed By: #### B MP #### [facility] [address] [address] [address] Deepak Greenfield Parainfluenza 1 Not detected Normal NOT DETECTED [facility] Comment on above: Performed By: #### B MP #### [facility] [address] [address] [address] Deepak Greenfield Parainfluenza 2 Not detected Normal NOT DETECTED [facility] Comment on above: Performed By: #### B MP #### [facility] [address] [address] [address] Deepak Greenfield Parainfluenza 3 Not detected Normal NOT DETECTED [facility] Comment on above: Performed By: #### B MP #### [facility] [address] [place] [address] Dr. Deepak Greenfield Parainfluenza 4 Not detected Normal NOT DETECTED [facility] Comment on above: Performed By: #### B MP #### [facility] [address] [address] [address] Deepak Greenfield Rhino/Enterovirus Not detected Normal NOT DETECTED [facility] Comment on above: Performed By: #### B MP #### [facility] [address] [place] [address] Dr. Deepak Greenfield RP2 Header 1 RESPIRATORY PANEL: VIRUSES Normal [facility] Comment on above: Performed By: #### B MP #### [facility] [address] [place] [address] Dr. Deepak Greenfield RP2 Header 2 RESPIRATORY PANEL: BACTERIA Normal [facility] Comment on above: Performed By: #### B MP #### [facility] [address] [place] [address] Dr. Deepak Greenfield RSV Not detected Normal NOT DETECTED [facility] Comment on above: Performed By: #### B MP #### [facility] [address] [place] [address] Dr. Deepak Greenfield SARS-CoV-2 (COVID-19) RNA CINDY+probe Ql (Unsp spec) Not detected Normal NOT DETECTED [facility] Comment on above: Performed By: #### B MP #### [facility] [address] [place] [address] Dr. Deepak Greenfield XR CHEST 1 Von [...] Akua PEREZ Date: 2022-07-28 20:23 Normal [facility] AMMONIAon 07-27-2022 Ammonia (P) [Moles/Vol] 76 umol/L Critically high 11-32 [facility] Comment on above: Performed By: #### M G, CMP #### [facility] [address] [place] [address] Dr. Deepak Greenfield CBC W MANUAL DIFFon 07-28-19 ATYPICAL LYMPH # Normal [facility] Comment on above: Performed By: #### M G, CMP #### [facility] [address] [place] [address] Dr. Deepak Greenfield ATYPICAL LYMPH % Normal [facility] Comment on above: Performed By: #### M G, CMP #### [facility] [address] [place] [address] Dr. Deepak Greenfield BAND # 0.4 103/ul Critically high 0.0-0.3 [facility] Comment on above: Performed By: #### M G, CMP #### [facility] [address] [place] [address] Dr. Deepak Greenfield BAND % 4 % Normal 0-5 [facility] Comment on above: Performed By: #### M G, CMP #### [facility] [address] [place] [address] Dr. Deepak Greenfield BASOM # 0.00 103/ul Normal 0.00-0.10 [facility] Comment on above: Performed By: #### M G, CMP #### [facility] [address] [place] [address] Dr. Deepak Greenfield BASOM % 0.0 % Critically low 0.2-2.0 [facility] Comment on above: Performed By: #### M G, CMP #### [facility] [address] [place] [address] Dr. Deepak Greenfield BLAST # Normal [facility] Comment on above: Performed By: #### M G, CMP #### [facility] [address] [place] [address] Dr. Deepak Greenfield BLAST % Normal [facility] Comment on above: Performed By: #### M G, CMP #### [facility] [address] [address] [address] Deepak Greenfield CORRECTED WBC Normal 4.0-11.0 [facility] Comment on above: Performed By: #### M G, CMP #### [facility] [address] [place] [address] Dr. Deepak Greenfield EOS # 0.00 103/ul Normal 0.00-0.70 [facility] Comment on above: Performed By: #### M G, CMP #### [facility] [address] [place] [address] Dr. Deepak Greenfield EOS% 0.0 % Critically low 0.9-7.0 [facility] Comment on above: Performed By: #### M G, CMP #### [facility] [address] [place] [address] Dr. Deepak Greenfield HCT 29.6 % Critically low 42.0-54.0 [facility] Comment on above: Performed By: #### M G, CMP #### [facility] [address] [place] [address] Dr. Deepak Greenfield HGB 10.4 g/dl Critically low 14.0-18.0 [facility] Comment on above: Performed By: #### M G, CMP #### [facility] [address] [place] [address] Dr. Deepak Greenfield LYMPHM # 0.71 103/ul Critically low 1.20-3.80 [facility] Comment on above: Performed By: #### M G, CMP #### [facility] [address] [place] [address] Dr. Deepak Greenfield LYMPHM% 8.0 % Critically low 20.5-60.0 [facility] Comment on above: Performed By: #### M G, CMP #### [facility] [address] [place] [address] Dr. Deepak Greenfield MCH 33.0 pg Normal 25.9-34.0 [facility] Comment on above: Performed By: #### M G, CMP #### [facility] [address] [place] [address] Dr. Deepak Greenfield MCHC 35.1 g/dl Normal 29.9-35.2 [facility] Comment on above: Performed By: #### M G, CMP #### [facility] [address] [place] [address] Dr. Deepak Greenfield MCV 94.0 fL Normal 80.0-94.0 [facility] Comment on above: Performed By: #### M G, CMP #### [facility] [address] [place] [address] Dr. Deepak Greenfield METAMYELOCYTE # Normal [facility] Comment on above: Performed By: #### M G, CMP #### [facility] [address] [place] [address] Dr. Deepak Greenfield METAMYELOCYTE % Normal [facility] Comment on above: Performed By: #### M G, CMP #### [facility] [address] [place] [address] Dr. Deepak Greenfield MONOM# 0.71 103/ul Normal 0.30-0.80 [facility] Comment on above: Performed By: #### M G, CMP #### [facility] [address] [place] [address] Dr. Deepak Greenfield MONOM% 8.0 % Normal 1.7-12.0 [facility] Comment on above: Performed By: #### M G, CMP #### [facility] [address] [place] [address] Dr. Deepak Greenfield MPV 9.6 fL Normal 9.5-13.5 [facility] Comment on above: Performed By: #### M G, CMP #### [facility] [address] [address] [address] Deepak Greenfield MYELOCYTE # Normal [facility] Comment on above: Performed By: #### M G, CMP #### [facility] [address] [address] [address] Deepak Greenfield MYELOCYTE % Normal [facility] Comment on above: Performed By: #### M G, CMP #### [facility] [address] [address] [address] Deepak Greenfield NRBC Normal [facility] Comment on above: Performed By: #### M G, CMP #### [facility] [address] [address] [address] Deepak Greenfield PLT 267 103/ul Normal 150-450 [facility] Comment on above: Performed By: #### M G, CMP #### [facility] [address] [place] [address] Dr. Deepak Greenfield RBC 3.15 106/ul Critically low 4.70-6.10 [facility] Comment on above: Performed By: #### M G, CMP #### [facility] [address] [place] [address] Dr. Deepak Greenfield RDW 12.9 % Normal 11.0-15.0 [facility] Comment on above: Performed By: #### M G, CMP #### [facility] [address] [place] [address] Dr. Deepak Greenfield SEG # 7.12 103/ul Critically high 1.40-6.50 [facility] Comment on above: Performed By: #### M G, CMP #### [facility] [address] [place] [address] Dr. Deepak Greenfield SEG % 80.0 % Critically high 43.0-75.0 [facility] Comment on above: Performed By: #### M G, CMP #### [facility] [address] [place] [address] Dr. Deepak Greenfield WBC 8.9 103/ul Normal 4.0-11.0 [facility] Comment on above: Performed By: #### M G, CMP #### [facility] [address] [address] [address] Deepak Greenfield PROF CHEM 8 (BAS METB)on Anion gap [Moles/Vol] 12.4 mmol/L Normal [facility] Comment on above: Performed By: #### C BC #### [facility] [address] [address] [address] Deepak Greenfield Calcium [Mass/Vol] 8.2 mg/dL Critically low 8.5-10.1 [facility] Comment on above: Performed By: #### C BC #### [facility] [address] [place] [address] Dr. Deepak Greenfield Chloride [Moles/Vol] 101 mmol/L Normal 98-107 [facility] Comment on above: Performed By: #### C BC #### [facility] [address] [place] [address] Dr. Deepak Greenfield CO2 [Moles/Vol] 25.0 mmol/L Normal 21.0-32.0 [facility] Comment on above: Performed By: #### C BC #### [facility] [address] [place] [address] Dr. Deepak Greenfield Creatinine [Mass/Vol] 0.53 mg/dL Critically low 0.70-1.30 [facility] Comment on above: Performed By: #### C BC #### [facility] [address] [place] [address] Dr. Deepak Greenfield EGFR-AF PRYDEINIG >60 Normal >=60 [facility] Comment on above: Performed By: #### C BC #### [facility] [address] [place] [address] Dr. Deepak Greenfield EGFR-NON AF PRYDEINIG >60 Normal >=60 [facility] Comment on above: Performed By: #### C BC #### [facility] [address] [place] [address] Dr. Deepak Greenfield Glucose [Mass/Vol] 161 mg/dL Critically high 74-106 T [facility] Comment on above: Performed By: #### C BC #### [facility] [address] [place] [address] Dr. Deepak Greenfield Potassium [Moles/Vol] 4.4 mmol/L Normal 3.5-5.1 [facility] Comment on above: Performed By: #### C BC #### [facility] [address] [address] [address] Deepak Greenfield Sodium [Moles/Vol] 134 mmol/L Critically low 136-145 [facility] Comment on above: Performed By: #### C BC #### [facility] [address] [address] [address] Deepak Greenfield Urea nitrogen [Mass/Vol] 13.0 mg/dL Normal 7.0-18.0 [facility] Comment on above: Performed By: #### C BC #### [facility] [address] [place] [address] Dr. Deepak Greenfield Urea nitrogen/Creatinine [Mass ratio] 24.5 mg/mg Normal [facility] Comment on above: Performed By: #### C BC #### [facility] [address] [place] [address] Dr. Deepak Greenfield AMMONIAon 07-26-2022 Ammonia (P) [Moles/Vol] 56 umol/L Critically high 11-32 [facility] Comment on above: Performed By: #### M G, CMP #### [facility] [address] [place] [address] Dr. Deepak Greenfield CARDIAC BEATRIS ADMITon 023 CK [Catalytic activity/Vol] 83 U/L Normal 39-308 [facility] Comment on above: Performed By: #### B MP #### [facility] [address] [place] [address] Dr. Deepak Greenfield CK.MB [Mass/Vol] 0.86 ng/mL Normal <=3.60 [facility] Comment on above: Performed By: #### B MP #### [facility] [address] [place] [address] Dr. Deepak Greenfield HSTROP 7.4 pg/mL Normal 4.0-76.1 [facility] Comment on above: Result Comment: CUT- OFF POINTS HAVE BEEN ESTABLISHED BASED ON THE FOURTH UNIVERSAL DEFINITIONS OF MYOCARDIAL INFARCTION. THE UPPER REFERENCE LIMIT (URL) OF TROPONIN, DEFINED THE 99TH PERCENTILE OF cTnI DISTRIBUTION IN A REFERENCE POPULATION, HAS BEEN CONFIRMED THE DECISION THRESHOLD FOR [place] DIAGNOSIS. Performed By: #### B MP #### [facility] [address] [place] [address] Dr. Deepak Greenfield VALE 46 ng/mL Normal 16-96 [facility] Comment on above: Performed By: #### B MP #### [facility] [address] [place] [address] Dr. Deepak Greenfield CBC AUTO DIFFon 07-26-2022 BASO # 0.1 103/ul Normal 0.0-0.1 [facility] Comment on above: Performed By: #### M G, CMP #### [facility] [address] [place] [address] Dr. Deepak Greenfield Basophils/100 WBC (Bld) 0.5 % Normal 0.2-2.0 [facility] Comment on above: Performed By: #### M G, CMP #### [facility] [address] [place] [address] Dr. Deepak Greenfield EO # 0.2 103/ul Normal 0.0-0.7 [facility] Comment on above: Performed By: #### M G, CMP #### [facility] [address] [place] [address] Dr. Deepak Greenfield Eosinophils/100 WBC (Bld) 2.1 % Normal 0.9-7.0 [facility] Comment on above: Performed By: #### M G, CMP #### [facility] [address] [place] [address] Dr. Deepak Greenfield Erythrocyte distribution width (RBC) [Ratio] 13.2 % Normal 11.0-15.0 [facility] Comment on above: Performed By: #### M G, CMP #### [facility] [address] [place] [address] Dr. Deepak Greenfield Hematocrit (Bld) [Volume fraction] 36.7 % Critically low 42.0-54.0 [facility] Comment on above: Performed By: #### M G, CMP #### [facility] [address] [place] [address] Dr. Deepak Greenfield Hemoglobin (Bld) [Mass/Vol] 12.4 g/dL Critically low 14.0-18.0 [facility] Comment on above: Performed By: #### M G, CMP #### [facility] [address] [place] [address] Dr. Deepak Greenfield IG # 0.04 10e3/ul Critically high 0.00-0.03 [facility] Comment on above: Performed By: #### M G, CMP #### [facility] [address] [place] [address] Dr. Deepak Greenfield IG % 0.4 % Normal 0.0-0.5 [facility] Comment on above: Performed By: #### M G, CMP #### [facility] [address] [place] [address] Dr. Deepak Greenfield LYMPH # 1.7 103/ul Normal 1.2-3.8 [facility] Comment on above: Performed By: #### M G, CMP #### [facility] [address] [place] [address] Dr. Deepak Greenfield Lymphocytes/100 WBC (Bld) 15.6 % Critically low 20.5-60.0 [facility] Comment on above: Performed By: #### M G, CMP #### [facility] [address] [place] [address] Dr. Deepak Greenfield MANUAL DIFF REQ NO Normal [facility] Comment on above: Performed By: #### M G, CMP #### [facility] [address] [place] [address] Dr. Deepak Greenfield MCH (RBC) [Entitic mass] 32.5 pg Normal 25.9-34.0 [facility] Comment on above: Performed By: #### M G, CMP #### [facility] [address] [place] [address] Dr. Deepak Greenfield MCHC (RBC) [Mass/Vol] 33.8 g/dL Normal 29.9-35.2 [facility] Comment on above: Performed By: #### M G, CMP #### [facility] [address] [place] [address] Dr. Deepak Greenfield MCV (RBC) [Entitic vol] 96.3 fL Critically high 80.0-94.0 [facility] Comment on above: Performed By: #### M G, CMP #### [facility] [address] [place] [address] Dr. Deepak Greenfield MONO # 1.4 103/ul Critically high 0.3-0.8 [facility] Comment on above: Performed By: #### M G, CMP #### [facility] [address] [place] [address] Dr. Deepak Greenfield Monocytes/100 WBC (Bld) 12.8 % Critically high 1.7-12.0 [facility] Comment on above: Performed By: #### M G, CMP #### [facility] [address] [place] [address] Dr. Deepak Greenfield NEUT # 7.4 103/ul Critically high 1.4-6.5 [facility] Comment on above: Performed By: #### M G, CMP #### [facility] [address] [place] [address] Dr. Deepak Greenfield Neutrophils/100 WBC (Bld) 68.6 % Normal 43.0-75.0 [facility] Comment on above: Performed By: #### M G, CMP #### [facility] [address] [place] [address] Dr. Deepak Greenfield Platelet mean volume (Bld) [Entitic vol] 9.5 fL Normal 9.5-13.5 [facility] Comment on above: Performed By: #### M G, CMP #### [facility] [address] [place] [address] Dr. Deepak Greenfield PLT 314 103/ul Normal 150-450 [facility] Comment on above: Performed By: #### M G, CMP #### [facility] [address] [place] [address] Dr. Deepak Greenfield RBC 3.81 106/ul Critically low 4.70-6.10 [facility] Comment on above: Performed By: #### M G, CMP #### [facility] [address] [address] [address] Deepak Greenfield WBC 10.8 103/ul Normal 4.0-11.0 [facility] Comment on above: Performed By: #### M G, CMP #### [facility] [address] [address] [address] Deepak Greenfield Covid-19 PCR ([facility])on SARS-CoV-2 (COVID-19) RNA CINDY+probe Ql (Unsp spec) Not detected Normal NOT DETECTED [facility] Comment on above: Result Comment: When [...] for this test is supported by the [place] of [employer] and Human Service's declaration that [...] used). Performed By: #### C VDTBH #### [facility] [address] [place] [address] Dr. Deepak Greenfield INFLUENZA A AND B AGon 07-26 INFLUANEGH SEE BELOW Normal [facility] Comment on above: Result Comment: Nega tive for Flu A protein angiten. Infection due to Flu A cannot be ruled out. Flu A angiten in the sample may be below the detection limit of the test. Performed By: #### I NFLUAB #### [facility] [address] [address] [address] Deepak Greenfield INFLUBNEGH SEE BELOW Normal [facility] Comment on above: Result Comment: Nega tive for Flu B protein antigen. Infection due to Flu B cannot be ruled out. Flu B antigen in the sample may be below the detection limit of the test. Performed By: #### I NFLUAB #### [facility] [address] [place] [address] Dr. Deepak Greenfield INFLUENZA A AG Negative Normal NEGATIVE SEE COMMENT [facility] Comment on above: Performed By: #### I NFLUAB #### [facility] [address] [place] [address] Dr. Deepak Greenfield INFLUENZA B AG Negative Normal NEGATIVE SEE COMMENT [facility] Comment on above: Performed By: #### I NFLUAB #### [facility] [address] [place] [address] Dr. Deepak Greenfield LACTATE/LACTIC ACIDon 2022 Lactate [Moles/Vol] 1.2 mmol/L Normal 0.4-2.0 [facility] Comment on above: Performed By: #### M G, CMP #### [facility] [address] [place] [address] Dr. Deepak Greenfield PROF 14(COMP METB)on 023 Albumin [Mass/Vol] 3.3 g/dL Critically low 3.4-5.0 [facility] Comment on above: Performed By: #### B MP #### [facility] [address] [place] [address] Dr. Deepak Greenfield Albumin/Globulin [Mass ratio] 0.8 {ratio} Normal [facility] Comment on above: Performed By: #### B MP #### [facility] [address] [place] [address] Dr. Deepak Greenfield ALP [Catalytic activity/Vol] 45 U/L Critically low 46-116 [facility] Comment on above: Performed By: #### B MP #### [facility] [address] [place] [address] Dr. Deepak Greenfield ALT [Catalytic activity/Vol] 114 U/L Critically high 16-63 [facility] Comment on above: Performed By: #### B MP #### [facility] [address] [place] [address] Dr. Deepak Greenfield Anion gap [Moles/Vol] 14.5 mmol/L Normal [facility] Comment on above: Performed By: #### B MP #### [facility] [address] [address] [address] Deepak Greenfield AST [Catalytic activity/Vol] 71 U/L Critically high 15-37 [facility] Comment on above: Performed By: #### B MP #### [facility] [address] [address] [address] Deepak Greenfield Bilirubin [Mass/Vol] 0.7 mg/dL Normal 0.2-1.0 [facility] Comment on above: Performed By: #### B MP #### [facility] [address] [address] [address] Deepak Greenfield Calcium [Mass/Vol] 9.1 mg/dL Normal 8.5-10.1 [facility] Comment on above: Performed By: #### B MP #### [facility] [address] [address] [address] Deepak Greenfield Chloride [Moles/Vol] 98 mmol/L Normal 98-107 [facility] Comment on above: Performed By: #### B MP #### [facility] [address] [address] [address] Deepak Greenfield CO2 [Moles/Vol] 27.4 mmol/L Normal 21.0-32.0 [facility] Comment on above: Performed By: #### B MP #### [facility] [address] [address] [address] Deepak Greenfield Creatinine [Mass/Vol] 0.65 mg/dL Critically low 0.70-1.30 [facility] Comment on above: Performed By: #### B MP #### [facility] [address] [address] [address] Deepak Greenfield EGFR-AF PRYDEINIG >60 Normal >=60 [facility] Comment on above: Performed By: #### B MP #### [facility] [address] [address] [address] Deepak Greenfield EGFR-NON AF PRYDEINIG >60 Normal >=60 [facility] Comment on above: Performed By: #### B MP #### [facility] [address] [address] [address] Deepak Greenfield Globulin (S) [Mass/Vol] 4.2 g/dL Normal [facility] Comment on above: Performed By: #### B MP #### [facility] [address] [address] [address] Deepak Greenfield Glucose [Mass/Vol] 105 mg/dL Normal 74-106 [facility] Comment on above: Performed By: #### B MP #### [facility] [address] [address] [address] Deepak Greenfield Potassium [Moles/Vol] 3.9 mmol/L Normal 3.5-5.1 [facility] Comment on above: Performed By: #### B MP #### [facility] [address] [address] [address] Deepak Greenfield Protein [Mass/Vol] 7.5 g/dL Normal 6.4-8.2 [facility] Comment on above: Performed By: #### B MP #### [facility] [address] [address] [address] Deepak Greenfield Sodium [Moles/Vol] 136 mmol/L Normal 136-145 [facility] Comment on above: Performed By: #### B MP #### [facility] [address] [address] [address] Deepak Greenfield Urea nitrogen [Mass/Vol] 13.0 mg/dL Normal 7.0-18.0 [facility] Comment on above: Performed By: #### B MP #### [facility] [address] [address] [address] Deepak Greenfield Urea nitrogen/Creatinine [Mass ratio] 20.0 mg/mg Normal [facility] Comment on above: Performed By: #### B MP #### [facility] [address] [address] [address] Deepak Greenfield XR CHEST 1 Von [...] by: ANICETO GARCIA Date: 2022-07-26 12:27 Normal [facility] Consent for Treatmenton Consent for Treatment [id number] .[id number]:127 Normal [facility] Physician Orderon 07-23-2022 Physician Order [id number] 1.00CD:127 Normal [facility] XR Adult Swallowing Function w/ Videoon [...] mGy = 11.70 DAP = 270.92 Normal [facility] AMMONIAon 06-03-2022 Ammonia (P) [Moles/Vol] 112 umol/L Critically high 11-32 [facility] Comment on above: Performed By: #### A MM #### [facility] [address] [place] [address] Dr. Deepak Greenfield DEPAKENE/ VALPROIC ACIDon DEPAKENE 94.0 ug/ml Normal 50.0-100.0 [facility] Comment on above: Performed By: #### C BC #### [facility] [address] [place] [address] Dr. Deepak Greenfield LIVER PROFILEon 06-03-2022 Albumin [Mass/Vol] 3.6 g/dL Normal 3.4-5.0 [facility] Comment on above: Performed By: #### C BC #### [facility] [address] [place] [address] Dr. Deepak Greenfield Albumin/Globulin [Mass ratio] 0.9 {ratio} Normal [facility] Comment on above: Performed By: #### C BC #### [facility] [address] [place] [address] Dr. Deepak Greenfield ALP [Catalytic activity/Vol] 55 U/L Normal 46-116 [facility] Comment on above: Performed By: #### C BC #### [facility] [address] [place] [address] Dr. Deepak Greenfield ALT [Catalytic activity/Vol] 76 U/L Critically high 16-63 [facility] Comment on above: Performed By: #### C BC #### [facility] [address] [place] [address] Dr. Deepak Greenfield AST [Catalytic activity/Vol] 51 U/L Critically high 15-37 [facility] Comment on above: Performed By: #### C BC #### [facility] [address] [place] [address] Dr. Deepak Greenfield BILI, CONJUGATED 0.1 mg/dL Normal 0.0-0.2 [facility] Comment on above: Performed By: #### C BC #### [facility] [address] [place] [address] Dr. Deepak Greenfield Bilirubin [Mass/Vol] 0.4 mg/dL Normal 0.2-1.0 [facility] Comment on above: Performed By: #### C BC #### [facility] [address] [place] [address] Dr. Deepak Greenfield Globulin (S) [Mass/Vol] 4.1 g/dL Normal [facility] Comment on above: Performed By: #### C BC #### [facility] [address] [place] [address] Dr. Deepak Greenfield Protein [Mass/Vol] 7.7 g/dL Normal 6.4-8.2 [facility] Comment on above: Performed By: #### C BC #### [facility] [address] [place] [address] Dr. Deepak Greenfield AMMONIAon 04-22-2022 Ammonia (P) [Moles/Vol] 108 umol/L Critically high [facility] Comment on above: Performed By: #### B MP #### [facility] [address] [place] [address] Dr. Deepak Greenfield CBC AUTO DIFFon 04-22-2022 BASO # 0.0 103/ul Normal 0.0-0.1 [facility] Comment on above: Performed By: #### C BC #### [facility] [address] [place] [address] Dr. Deepak Greenfield Basophils/100 WBC (Bld) 0.5 % Normal 0.2-2.0 [facility] Comment on above: Performed By: #### C BC #### [facility] [address] [place] [address] Dr. Deepak Greenfield EO # 0.1 103/ul Normal 0.0-0.7 [facility] Comment on above: Performed By: #### C BC #### [facility] [address] [place] [address] Dr. Deepak Greenfield Eosinophils/100 WBC (Bld) 1.4 % Normal 0.9-7.0 [facility] Comment on above: Performed By: #### C BC #### [facility] [address] [place] [address] Dr. Deepak Greenfield Erythrocyte distribution width (RBC) [Ratio] 14.2 % Normal 11.0-15.0 [facility] Comment on above: Performed By: #### C BC #### [facility] [address] [place] [address] Dr. Deepak Greenfield Hematocrit (Bld) [Volume fraction] 37.0 % Critically low 42.0-54.0 [facility] Comment on above: Performed By: #### C BC #### [facility] [address] [place] [address] Dr. Deepak Greenfield Hemoglobin (Bld) [Mass/Vol] 12.3 g/dL Critically low 14.0-18.0 [facility] Comment on above: Performed By: #### C BC #### [facility] [address] [place] [address] Dr. Deepak Greenfield IG # 0.00 10e3/ul Normal 0.00-0.03 [facility] Comment on above: Performed By: #### C BC #### [facility] [address] [place] [address] Dr. Deepak Greenfield IG % 0.0 % Normal 0.0-0.5 [facility] Comment on above: Performed By: #### C BC #### [facility] [address] [place] [address] Dr. Deepak Greenfield LYMPH # 3.3 103/ul Normal 1.2-3.8 [facility] Comment on above: Performed By: #### C BC #### [facility] [address] [place] [address] Dr. Deepak Greenfield Lymphocytes/100 WBC (Bld) 51.5 % Normal 20.5-60.0 [facility] Comment on above: Performed By: #### C BC #### [facility] [address] [place] [address] Dr. Deepak Greenfield MANUAL DIFF REQ NO Normal [facility] Comment on above: Performed By: #### C BC #### [facility] [address] [place] [address] Dr. Deepak Greenfield MCH (RBC) [Entitic mass] 32.2 pg Normal 25.9-34.0 [facility] Comment on above: Performed By: #### C BC #### [facility] [address] [place] [address] Dr. Deepak Greenfield MCHC (RBC) [Mass/Vol] 33.2 g/dL Normal 29.9-35.2 [facility] Comment on above: Performed By: #### C BC #### [facility] [address] [place] [address] Dr. Deepak Greenfield MCV (RBC) [Entitic vol] 96.9 fL Critically high 80.0-94.0 [facility] Comment on above: Performed By: #### C BC #### [facility] [address] [place] [address] Dr. Deepak Greenfield MONO # 0.6 103/ul Normal 0.3-0.8 [facility] Comment on above: Performed By: #### C BC #### [facility] [address] [place] [address] Dr. Deepak Greenfield Monocytes/100 WBC (Bld) 9.7 % Normal 1.7-12.0 [facility] Comment on above: Performed By: #### C BC #### [facility] [address] [place] [address] Dr. Deepak Greenfield NEUT # 2.4 103/ul Normal 1.4-6.5 [facility] Comment on above: Performed By: #### C BC #### [facility] [address] [place] [address] Dr. Deepak Greenfield Neutrophils/100 WBC (Bld) 36.9 % Critically low 43.0-75.0 [facility] Comment on above: Performed By: #### C BC #### [facility] [address] [place] [address] Dr. Deepak Greenfield Platelet mean volume (Bld) [Entitic vol] 10.2 fL Normal 9.5-13.5 [facility] Comment on above: Performed By: #### C BC #### [facility] [address] [place] [address] Dr. Deepak Greenfield PLT 248 103/ul Normal 150-450 [facility] Comment on above: Performed By: #### C BC #### [facility] [address] [place] [address] Dr. Deepak Greenfield RBC 3.82 106/ul Critically low 4.70-6.10 [facility] Comment on above: Performed By: #### C BC #### [facility] [address] [place] [address] Dr. Deepak Greenfield WBC 6.5 103/ul Normal 4.0-11.0 [facility] Comment on above: Performed By: #### C BC #### [facility] [address] [place] [address] Dr. Deepak Greenfield FERRITINon 04-22-2022 Ferritin [Mass/Vol] 152.0 ng/mL Normal 26.0-388.0 [facility] Comment on above: Performed By: #### M G, CMP #### [facility] [address] [place] [address] Dr. Deepak Greenfield IRONon 04-22-2022 Iron [Mass/Vol] 136.0 ug/dL Normal 65.0-175.0 [facility] Comment on above: Performed By: #### M G, CMP #### [facility] [address] [place] [address] Dr. Deepak Greenfield MAGNESIUMon 04-22-2022 Magnesium [Mass/Vol] 1.6 mg/dL Critically low 1.8-2.4 [facility] Comment on above: Performed By: #### I NFLUAB #### [facility] [address] [place] [address] Dr. Deepak Greenfield VITAMIN B12on 04-22-2022 Cobalamin (Vitamin B12) [Mass/Vol] 545.0 pg/mL Normal 193.0-986.0 [facility] Comment on above: Performed By: #### M G, CMP #### [facility] [address] [place] [address] Dr. Deepak Greenfield CBC AUTO DIFFon 03-19-2022 BASO # 0.0 103/ul Normal 0.0-0.1 [facility] Comment on above: Performed By: #### M G, CMP #### [facility] [address] [place] [address] Dr. Deepak Greenfield Basophils/100 WBC (Bld) 0.5 % Normal 0.2-2.0 [facility] Comment on above: Performed By: #### M G, CMP #### [facility] [address] [place] [address] Dr. Deepak Greenfield EO # 0.2 103/ul Normal 0.0-0.7 [facility] Comment on above: Performed By: #### M G, CMP #### [facility] [address] [place] [address] Dr. Deepak Greenfield Eosinophils/100 WBC (Bld) 2.0 % Normal 0.9-7.0 [facility] Comment on above: Performed By: #### M G, CMP #### [facility] [address] [place] [address] Dr. Deepak Greenfield Erythrocyte distribution width (RBC) [Ratio] 13.5 % Normal 11.0-15.0 [facility] Comment on above: Performed By: #### M G, CMP #### [facility] [address] [place] [address] Dr. Deepak Greenfield Hematocrit (Bld) [Volume fraction] 38.5 % Critically low 42.0-54.0 [facility] Comment on above: Performed By: #### M G, CMP #### [facility] [address] [place] [address] Dr. Deepak Greenfield Hemoglobin (Bld) [Mass/Vol] 12.6 g/dL Critically low 14.0-18.0 [facility] Comment on above: Performed By: #### M G, CMP #### [facility] [address] [place] [address] Dr. Deepka Greenfield IG # 0.02 10e3/ul Normal 0.00-0.03 [facility] Comment on above: Performed By: #### M G, CMP #### [facility] [address] [address] [address] Deepak Greenfield IG % 0.2 % Normal 0.0-0.5 [facility] Comment on above: Performed By: #### M G, CMP #### [facility] [address] [address] [address] Deepak Greenfield LYMPH # 3.1 103/ul Normal 1.2-3.8 [facility] Comment on above: Performed By: #### M G, CMP #### [facility] [address] [address] [address] Deepak Greenfield Lymphocytes/100 WBC (Bld) 36.2 % Normal 20.5-60.0 [facility] Comment on above: Performed By: #### M G, CMP #### [facility] [address] [place] [address] Dr. Deepak Greenfield MANUAL DIFF REQ NO Normal [facility] Comment on above: Performed By: #### M G, CMP #### [facility] [address] [place] [address] Dr. Deepak Greenfield MCH (RBC) [Entitic mass] 32.1 pg Normal 25.9-34.0 [facility] Comment on above: Performed By: #### M G, CMP #### [facility] [address] [place] [address] Dr. Deepak Greenfield MCHC (RBC) [Mass/Vol] 32.7 g/dL Normal 29.9-35.2 [facility] Comment on above: Performed By: #### M G, CMP #### [facility] [address] [place] [address] Dr. Deepak Greenfield MCV (RBC) [Entitic vol] 98.0 fL Critically high 80.0-94.0 [facility] Comment on above: Performed By: #### M G, CMP #### [facility] [address] [place] [address] Dr. Deepak Greenfield MONO # 0.9 103/ul Critically high 0.3-0.8 [facility] Comment on above: Performed By: #### M G, CMP #### [facility] [address] [address] [address] Deepak Greenfield Monocytes/100 WBC (Bld) 10.6 % Normal 1.7-12.0 [facility] Comment on above: Performed By: #### M G, CMP #### [facility] [address] [address] [address] Deepak Greenfield NEUT # 4.3 103/ul Normal 1.4-6.5 [facility] Comment on above: Performed By: #### M G, CMP #### [facility] [address] [place] [address] Dr. Deepak Greenfield Neutrophils/100 WBC (Bld) 50.5 % Normal 43.0-75.0 [facility] Comment on above: Performed By: #### M G, CMP #### [facility] [address] [place] [address] Dr. Deepak Greenfield Platelet mean volume (Bld) [Entitic vol] 9.9 fL Normal 9.5-13.5 [facility] Comment on above: Performed By: #### M G, CMP #### [facility] [address] [place] [address] Dr. Deepak Greenfield PLT 263 103/ul Normal 150-450 [facility] Comment on above: Performed By: #### M G, CMP #### [facility] [address] [place] [address] Dr. Deepak Greenfield RBC 3.93 106/ul Critically low 4.70-6.10 [facility] Comment on above: Performed By: #### M G, CMP #### [facility] [address] [place] [address] Dr. Deepak Greenfield WBC 8.6 103/ul Normal 4.0-11.0 [facility] Comment on above: Performed By: #### M G, CMP #### [facility] [address] [place] [address] Dr. Deepak Greenfield MAGNESIUMon 03-19-2022 Magnesium [Mass/Vol] 1.5 mg/dL Critically low 1.8-2.4 [facility] Comment on above: Performed By: #### M G, CMP #### [facility] [address] [place] [address] Dr. Deepak Greenfield PROF 14(COMP METB)on 022 Albumin [Mass/Vol] 3.4 g/dL Normal 3.4-5.0 [facility] Comment on above: Performed By: #### M G, CMP #### [facility] [address] [place] [address] Dr. Deepak Greenfield Albumin/Globulin [Mass ratio] 0.9 {ratio} Normal [facility] Comment on above: Performed By: #### M G, CMP #### [facility] [address] [place] [address] Dr. Deepak Greenfield ALP [Catalytic activity/Vol] 47 U/L Normal 46-116 [facility] Comment on above: Performed By: #### M G, CMP #### [facility] [address] [place] [address] Dr. Deepak Greenfield ALT [Catalytic activity/Vol] 48 U/L Normal 16-63 [facility] Comment on above: Performed By: #### M G, CMP #### [facility] [address] [place] [address] Dr. Deepak Greenfield Anion gap [Moles/Vol] 9.5 mmol/L Normal [facility] Comment on above: Performed By: #### M G, CMP #### [facility] [address] [place] [address] Dr. Deepak Greenfield AST [Catalytic activity/Vol] 30 U/L Normal 15-37 [facility] Comment on above: Performed By: #### M G, CMP #### [facility] [address] [place] [address] Dr. Deepak Greenfield Bilirubin [Mass/Vol] 0.2 mg/dL Normal 0.2-1.0 [facility] Comment on above: Performed By: #### M G, CMP #### [facility] [address] [place] [address] Dr. Deepak Greenfield Calcium [Mass/Vol] 8.7 mg/dL Normal 8.5-10.1 [facility] Comment on above: Performed By: #### M G, CMP #### [facility] [address] [address] [address] Deepak Greenfield Chloride [Moles/Vol] 105 mmol/L Normal 98-107 [facility] Comment on above: Performed By: #### M G, CMP #### [facility] [address] [address] [address] Deepak Greenfield CO2 [Moles/Vol] 32.6 mmol/L Critically high 21.0-32.0 [facility] Comment on above: Performed By: #### M G, CMP #### [facility] [address] [place] [address] Dr. Deepak Greenfield Creatinine [Mass/Vol] 0.70 mg/dL Normal 0.70-1.30 [facility] Comment on above: Performed By: #### M G, CMP #### [facility] [address] [place] [address] Dr. Deepak Greenfield EGFR-AF PRYDEINIG >60 Normal >=60 [facility] Comment on above: Performed By: #### M G, CMP #### [facility] [address] [place] [address] Dr. Deepak Greenfield EGFR-NON AF PRYDEINIG >60 Normal >=60 [facility] Comment on above: Performed By: #### M G, CMP #### [facility] [address] [place] [address] Dr. Deepak Greenfield Globulin (S) [Mass/Vol] 3.8 g/dL Normal [facility] Comment on above: Performed By: #### M G, CMP #### [facility] [address] [place] [address] Dr. Deepak Greenfield Glucose [Mass/Vol] 98 mg/dL Normal 74-106 [facility] Comment on above: Performed By: #### M G, CMP #### [facility] [address] [place] [address] Dr. Deepak Greenfield Potassium [Moles/Vol] 4.1 mmol/L Normal 3.5-5.1 [facility] Comment on above: Performed By: #### M G, CMP #### [facility] [address] [place] [address] Dr. Deepak Greenfield Protein [Mass/Vol] 7.2 g/dL Normal 6.4-8.2 [facility] Comment on above: Performed By: #### M G, CMP #### [facility] [address] [place] [address] Dr. Deepak Greenfield Sodium [Moles/Vol] 143 mmol/L Normal 136-145 [facility] Comment on above: Performed By: #### M G, CMP #### [facility] [address] [place] [address] Dr. Deepak Greenfield Urea nitrogen [Mass/Vol] 10.0 mg/dL Normal 7.0-18.0 [facility] Comment on above: Performed By: #### Karishma G, CMP #### [facility] [address] [place] [address] Dr. Deepak Greenfield Urea nitrogen/Creatinine [Mass ratio] 14.3 mg/mg Normal [facility] Comment on above: Performed By: #### Karishma House, CMP #### [facility] [address] [place] [address] Dr. Deepak Greenfield VITAMIN D 25 OHon 03-19-2022 VIT D 25-OH 67.5 ng/mL Normal [facility] Comment on above: Performed By: #### Karishma House, CMP #### [facility] [address] [place] [address] Dr. Deepak Greenfield VIT D RANGES SEE BELOW Normal [facility] Comment on above: Result Comment: <20 ng/mL Vit D deficient 20 - <30 ng/mL Vit D insufficient 30 - 100 ng/mL Vit D sufficient >100 ng/mL Potential Toxicity Performed By: #### M G, CMP #### [facility] [address] [place] [address] Dr. Deepak Greenfield AMMONIAon 03-10-2022 Ammonia (P) [Moles/Vol] 36 umol/L Critically high [facility] Comment on above: Performed By: #### C BC #### [facility] [address] [place] [address] Dr. Deepak Greenfield DEPAKENE/ VALPROIC ACIDon DEPAKENE 93.5 ug/ml Normal 50.0-100.0 [facility] Comment on above: Performed By: #### B MP #### [facility] [address] [place] [address] Dr. Deepak Greenfield BNPon 01-24-2022 Natriuretic peptide B (Bld) [Mass/Vol] 183.0 pg/mL Normal <=450.0 [facility] Comment on above: Performed By: #### M G, CMP #### [facility] [address] [place] [address] Dr. Deepak Greenfield CBC AUTO DIFFon 01-24-2022 BASO # 0.0 103/ul Normal 0.0-0.1 [facility] Comment on above: Performed By: #### C VDTBH #### [facility] [address] [place] [address] Dr. Deepak Greenfield Basophils/100 WBC (Bld) 0.3 % Normal 0.2-2.0 [facility] Comment on above: Performed By: #### C VDTBH #### [facility] [address] [place] [address] Dr. Deepak Greenfield EO # 0.1 103/ul Normal 0.0-0.7 [facility] Comment on above: Performed By: #### C VDTBH #### [facility] [address] [place] [address] Dr. Deepak Greenfield Eosinophils/100 WBC (Bld) 0.4 % Critically low 0.9-7.0 [facility] Comment on above: Performed By: #### C VDTBH #### [facility] [address] [place] [address] Dr. Deepak Greenfield Erythrocyte distribution width (RBC) [Ratio] 13.6 % Normal 11.0-15.0 [facility] Comment on above: Performed By: #### C VDTBH #### [facility] [address] [place] [address] Dr. Deepak Greenfield Hematocrit (Bld) [Volume fraction] 39.3 % Critically low 42.0-54.0 [facility] Comment on above: Performed By: #### C VDTBH #### [facility] [address] [place] [address] Dr. Deepak Greenfield Hemoglobin (Bld) [Mass/Vol] 12.6 g/dL Critically low 14.0-18.0 [facility] Comment on above: Performed By: #### C VDTBH #### [facility] [address] [place] [address] Dr. Deepak Greenfield IG # 0.04 10e3/ul Critically high 0.00-0.03 [facility] Comment on above: Performed By: #### C VDTBH #### [facility] [address] [place] [address] Dr. Deepak Greenfield IG % 0.3 % Normal 0.0-0.5 [facility] Comment on above: Performed By: #### C VDTBH #### [facility] [address] [place] [address] Dr. Deepak Greenfield LYMPH # 2.4 103/ul Normal 1.2-3.8 [facility] Comment on above: Performed By: #### C VDTBH #### [facility] [address] [place] [address] Dr. Deepak Greenifeld Lymphocytes/100 WBC (Bld) 16.6 % Critically low 20.5-60.0 [facility] Comment on above: Performed By: #### C VDTBH #### [facility] [address] [place] [address] Dr. Deepak Greenfield MANUAL DIFF REQ NO Normal [facility] Comment on above: Performed By: #### C VDTBH #### [facility] [address] [place] [address] Dr. Deepak Greenfield MCH (RBC) [Entitic mass] 32.0 pg Normal 25.9-34.0 [facility] Comment on above: Performed By: #### C VDTBH #### [facility] [address] [place] [address] Dr. Deepak Greenfield MCHC (RBC) [Mass/Vol] 32.1 g/dL Normal 29.9-35.2 [facility] Comment on above: Performed By: #### C VDTBH #### [facility] [address] [address] [address] Deepak Greenfield MCV (RBC) [Entitic vol] 99.7 fL Critically high 80.0-94.0 [facility] Comment on above: Performed By: #### C VDTBH #### [facility] [address] [place] [address] Dr. Deepak Greenfield MONO # 1.4 103/ul Critically high 0.3-0.8 [facility] Comment on above: Performed By: #### C VDTBH #### [facility] [address] [place] [address] Dr. Deepak Greenfield Monocytes/100 WBC (Bld) 9.8 % Normal 1.7-12.0 [facility] Comment on above: Performed By: #### C VDTBH #### [facility] [address] [place] [address] Dr. Deepak Greenfield NEUT # 10.7 103/ul Critically high 1.4-6.5 [facility] Comment on above: Performed By: #### C VDTBH #### [facility] [address] [place] [address] Dr. Deepak Greenfield Neutrophils/100 WBC (Bld) 72.6 % Normal 43.0-75.0 [facility] Comment on above: Performed By: #### C VDTBH #### [facility] [address] [address] [address] Deepak Greenfield Platelet mean volume (Bld) [Entitic vol] 10.4 fL Normal 9.5-13.5 [facility] Comment on above: Performed By: #### C VDTBH #### [facility] [address] [address] [address] Deepak Greenfield PLT 280 103/ul Normal 150-450 [facility] Comment on above: Performed By: #### C VDTBH #### [facility] [address] [address] [address] Deepak Greenfield RBC 3.94 106/ul Critically low 4.70-6.10 [facility] Comment on above: Performed By: #### C VDTBH #### [facility] [address] [address] [address] Deepak Greenfield WBC 14.7 103/ul Critically high 4.0-11.0 [facility] Comment on above: Performed By: #### C VDTBH #### [facility] [address] [address] [address] Deepak Greenfield CULTURE BLOODon 01-24-2022 Microscopic examination of blood, culture Culture Observations: No growth at 5 days. Normal [facility] Comment on above: Performed By: #### C BC #### [facility] [address] [place] [address] Dr. Deepak Greenfield Microscopic examination of blood, culture Culture Observations: No growth at 5 days. Normal [facility] Comment on above: Performed By: #### C BC #### [facility] [address] [address] [address] Deepak Greenfield Covid-19 PCR ([facility]on SARS-CoV-2 (COVID-19) RNA CINDY+probe Ql (Unsp spec) Not detected Normal NOT DETECTED [facility] Comment on above: Result Comment: When [...] for this test is supported by the [place] [employer] Service's declaration that [...] used). Performed By: #### I NFLUAB #### [facility] [address] [place] [address] Dr. Deepak Greenfield LACTATE/LACTIC ACIDon 2021 Lactate [Moles/Vol] 1.7 mmol/L Normal 0.4-1.9 [facility] Comment on above: Performed By: #### M G, CMP #### [facility] [address] [place] [address] Dr. Deepak Greenfield PROF 14(COMP METB)on 022 Albumin [Mass/Vol] 3.2 g/dL Critically low 3.4-5.0 [facility] Comment on above: Performed By: #### M G, CMP #### [facility] [address] [place] [address] Dr. Deepak Greenfield Albumin/Globulin [Mass ratio] 0.7 {ratio} Normal [facility] Comment on above: Performed By: #### M G, CMP #### [facility] [address] [place] [address] Dr. Deepak Greenfield ALP [Catalytic activity/Vol] 49 U/L Normal 46-116 [facility] Comment on above: Performed By: #### M G, CMP #### [facility] [address] [place] [address] Dr. Deepak Greenfield ALT [Catalytic activity/Vol] 41 U/L Normal 16-63 [facility] Comment on above: Performed By: #### M G, CMP #### [facility] [address] [place] [address] Dr. Deepak Greenfield Anion gap [Moles/Vol] 11.1 mmol/L Normal [facility] Comment on above: Performed By: #### M G, CMP #### [facility] [address] [place] [address] Dr. Deepak Greenfield AST [Catalytic activity/Vol] 29 U/L Normal 15-37 [facility] Comment on above: Performed By: #### M G, CMP #### [facility] [address] [place] [address] Dr. Deepak Greenfield Bilirubin [Mass/Vol] 0.5 mg/dL Normal 0.2-1.0 [facility] Comment on above: Performed By: #### M G, CMP #### [facility] [address] [place] [address] Dr. Deepak Greenfield Calcium [Mass/Vol] 9.1 mg/dL Normal 8.5-10.1 [facility] Comment on above: Performed By: #### M G, CMP #### [facility] [address] [place] [address] Dr. Deepak Greenfield Chloride [Moles/Vol] 108 mmol/L Critically high 98-107 [facility] Comment on above: Performed By: #### M G, CMP #### [facility] [address] [place] [address] Dr. Deepak Greenfield CO2 [Moles/Vol] 25.7 mmol/L Normal 21.0-32.0 [facility] Comment on above: Performed By: #### M G, CMP #### [facility] [address] [place] [address] Dr. Deepak Greenfield Creatinine [Mass/Vol] 0.89 mg/dL Normal 0.70-1.30 [facility] Comment on above: Performed By: #### M G, CMP #### [facility] [address] [place] [address] Dr. Deepak Greenfield EGFR-AF PRYDEINIG >60 Normal >=60 [facility] Comment on above: Performed By: #### M G, CMP #### [facility] [address] [place] [address] Dr. Deepak Greenfield EGFR-NON AF PRYDEINIG >60 Normal >=60 [facility] Comment on above: Performed By: #### M G, CMP #### [facility] [address] [place] [address] Dr. Deepak Greenfield Globulin (S) [Mass/Vol] 4.5 g/dL Normal [facility] Comment on above: Performed By: #### M G, CMP #### [facility] [address] [place] [address] Dr. Deepak Greenfield Glucose [Mass/Vol] 178 mg/dL Critically high 74-106 [facility] Comment on above: Performed By: #### M G, CMP #### [facility] [address] [place] [address] Dr. Deepak Greenfield Potassium [Moles/Vol] 3.8 mmol/L Normal 3.5-5.1 [facility] Comment on above: Performed By: #### M G, CMP #### [facility] [address] [place] [address] Dr. Deepak Greenfield Protein [Mass/Vol] 7.7 g/dL Normal 6.4-8.2 [facility] Comment on above: Performed By: #### M G, CMP #### [facility] [address] [place] [address] Dr. Deepak Greenfield Sodium [Moles/Vol] 141 mmol/L Normal 136-145 [facility] Comment on above: Performed By: #### M G, CMP #### [facility] [address] [place] [address] Dr. Deepak Greenfield Urea nitrogen [Mass/Vol] 16.0 mg/dL Normal 7.0-18.0 [facility] Comment on above: Performed By: #### M G, CMP #### [facility] [address] [place] [address] Dr. Deepak Greenfield Urea nitrogen/Creatinine [Mass ratio] 18.0 mg/mg Normal [facility] Comment on above: Performed By: #### M G, CMP #### [facility] [address] [place] [address] Dr. Deepak Greenfield TROPONIN, HIGH SENSITIVITYon 01-24-2022 HSTROP 6.4 pg/mL Normal 4.0-76.1 [facility] Comment on above: Result Comment: CUT- OFF POINTS HAVE BEEN ESTABLISHED BASED ON THE FOURTH UNIVERSAL DEFINITIONS OF MYOCARDIAL INFARCTION. THE UPPER REFERENCE LIMIT (URL) OF TROPONIN, DEFINED THE 99TH PERCENTILE OF cTnI DISTRIBUTION IN A REFERENCE POPULATION, HAS BEEN CONFIRMED THE DECISION THRESHOLD FOR [place] DIAGNOSIS. Performed By: #### M G, CMP #### [facility] [address] [place] [address] Dr. Deepak Greenfield XR CHEST 1 Von [...] ANICETO CROCKER Date: 2022-01-24 15:28 Normal [facility] UA RANDOM W/MICROSCOPICon BACTERIA NONE SEEN Normal NONE SEEN [facility] Comment on above: Performed By: #### C VDTBH #### [facility] [address] [place] [address] Dr. Deepak Greenfield Bilirubin Ql (U) Negative Normal NEGATIVE [facility] Comment on above: Performed By: #### C VDTBH #### [facility] [address] [place] [address] Dr. Deepak Greenfield CAST NONE SEEN Normal NONE SEEN [facility] Comment on above: Performed By: #### C VDTBH #### [facility] [address] [place] [address] Dr. Deepak Greenfield Clarity (U) CLEAR Normal CLEAR [facility] Comment on above: Performed By: #### C VDTBH #### [facility] [address] [place] [address] Dr. Deepak Greenfield Color (U) YELLOW Normal YELLOW [facility] Comment on above: Performed By: #### C VDTBH #### [facility] [address] [place] [address] Dr. Deepak Greenfield Crystals LM Nom (Urine sed) NONE SEEN Normal NONE SEEN [facility] Comment on above: Performed By: #### C VDTBH #### [facility] [address] [place] [address] Dr. Deepak Greenfield Epithelial cells LM Ql (Urine sed) RARE Normal NONE SEEN /RARE [facility] Comment on above: Performed By: #### C VDTBH #### [facility] [address] [place] [address] Dr. Deepak Greenfield Glucose Ql (U) Negative Normal NEGATIVE [facility] Comment on above: Performed By: #### C VDTBH #### [facility] [address] [place] [address] Dr. Deepak Greenfield Hemoglobin Ql (U) Negative Normal NEGATIVE [facility] Comment on above: Performed By: #### C VDTBH #### [facility] [address] [place] [address] Dr. Deepak Greenfield Ketones Ql (U) 15 mg/dl Abnormal NEGATIVE [facility] Comment on above: Performed By: #### C VDTBH #### [facility] [address] [place] [address] Dr. Deepak Greenfield LEUKOCYTES Negative Normal NEGATIVE [facility] Comment on above: Performed By: #### C VDTBH #### [facility] [address] [place] [address] Dr. Deepak Greenfield MUCOUS NONE SEEN Normal NONE SEEN [facility] Comment on above: Performed By: #### C VDTBH #### [facility] [address] [place] [address] Dr. Deepak Greenfield Nitrite Ql (U) Negative Normal NEGATIVE [facility] Comment on above: Performed By: #### C VDTBH #### [facility] [address] [place] [address] Dr. Deepak Greenfield pH (U) 6.0 [pH] Normal 5-9 [facility] Comment on above: Performed By: #### C VDTBH #### [facility] [address] [place] [address] Dr. Deepak Greenfield RBC 0-2 Normal 0-2 [facility] Comment on above: Performed By: #### C VDTBH #### [facility] [address] [place] [address] Dr. Deepak Greenfield SPEC GRAVITY 1.020 Normal 1.005-<=1.025 [facility] Comment on above: Performed By: #### C VDTBH #### [facility] [address] [place] [address] Dr. Deepak Greenfield UA PROTEIN Negative Normal NEGATIVE/ TRACE [facility] Comment on above: Performed By: #### C VDTBH #### [facility] [address] [place] [address] Dr. Deepak Greenfield Urobilinogen Qn (U) 0.2 {Ottoniel'U}/dL Normal 0.2 - 1. 0 [facility] Comment on above: Performed By: #### C VDTBH #### [facility] [address] [place] [address] Dr. Deepak Greenfield WBC NONE SEEN Normal NONE SEEN [facility] Comment on above: Performed By: #### C VDTBH #### [facility] [address] [place] [address] Dr. Deepak Greenfield ALBUMINon 01-12-2022 Albumin [Mass/Vol] 3.4 g/dL Normal 3.4-5.0 [facility] Comment on above: Performed By: #### C VDTBH #### [facility] [address] [place] [address] Dr. Deepak Greenfield ALKALINE PHOSPHAon ALP [Catalytic activity/Vol] 46 U/L Normal 46-116 [facility] Comment on above: Performed By: #### C VDTBH #### [facility] [address] [place] [address] Dr. Deepak Greenfield AMMONIAon 01-12-2022 Ammonia (P) [Moles/Vol] 93 umol/L Critically high 11-32 [facility] Comment on above: Performed By: #### I NFLUAB #### [facility] [address] [place] [address] Dr. Deepak Greenfield BILIRUBIN CONJUGATED (DIRECT )on 01-12-2022 BILI, CONJUGATED 0.1 mg/dL Normal 0.0-0.2 [facility] Comment on above: Performed By: #### C VDTBH #### [facility] [address] [place] [address] Dr. Deepak Greenfield BILIRUBIN TOTALon 01-12-2022 Bilirubin [Mass/Vol] 0.4 mg/dL Normal 0.2-1.0 [facility] Comment on above: Performed By: #### C VDTBH #### [facility] [address] [place] [address] Dr. Deepak Greenfield CBC AUTO DIFFon 01-12-2022 BASO # 0.0 103/ul Normal 0.0-0.1 [facility] Comment on above: Performed By: #### M G, CMP #### [facility] [address] [place] [address] Dr. Deepak Greenfield Basophils/100 WBC (Bld) 0.3 % Normal 0.2-2.0 [facility] Comment on above: Performed By: #### M G, CMP #### [facility] [address] [place] [address] Dr. Deepak Greenfield EO # 0.1 103/ul Normal 0.0-0.7 [facility] Comment on above: Performed By: #### M G, CMP #### [facility] [address] [place] [address] Dr. Deepak Greenfield Eosinophils/100 WBC (Bld) 1.3 % Normal 0.9-7.0 [facility] Comment on above: Performed By: #### M G, CMP #### [facility] [address] [place] [address] Dr. Deepak Greenfield Erythrocyte distribution width (RBC) [Ratio] 14.2 % Normal 11.0-15.0 [facility] Comment on above: Performed By: #### M G, CMP #### [facility] [address] [place] [address] Dr. Deepak Greenfield Hematocrit (Bld) [Volume fraction] 40.4 % Critically low 42.0-54.0 [facility] Comment on above: Performed By: #### M G, CMP #### [facility] [address] [place] [address] Dr. Deepak Greenfield Hemoglobin (Bld) [Mass/Vol] 13.1 g/dL Critically low 14.0-18.0 [facility] Comment on above: Performed By: #### M G, CMP #### [facility] [address] [place] [address] Dr. Deepak Greenfield IG # 0.01 10e3/ul Normal 0.00-0.03 [facility] Comment on above: Performed By: #### M G, CMP #### [facility] [address] [place] [address] Dr. Deepak Greenfield IG % 0.1 % Normal 0.0-0.5 [facility] Comment on above: Performed By: #### M G, CMP #### [facility] [address] [place] [address] Dr. Deepak Greenfield LYMPH # 3.3 103/ul Normal 1.2-3.8 [facility] Comment on above: Performed By: #### M G, CMP #### [facility] [address] [place] [address] Dr. Deepak Greenfield Lymphocytes/100 WBC (Bld) 42.3 % Normal 20.5-60.0 [facility] Comment on above: Performed By: #### Karishma G, CMP #### [facility] [address] [place] [address] Dr. Deepak Greenfield MANUAL DIFF REQ NO Normal [facility] Comment on above: Performed By: #### M G, CMP #### [facility] [address] [place] [address] Dr. Deepak Greenfield MCH (RBC) [Entitic mass] 32.4 pg Normal 25.9-34.0 [facility] Comment on above: Performed By: #### M G, CMP #### [facility] [address] [place] [address] Dr. Deepak Greenfield MCHC (RBC) [Mass/Vol] 32.4 g/dL Normal 29.9-35.2 [facility] Comment on above: Performed By: #### M G, CMP #### [facility] [address] [place] [address] Dr. Deepak Greenfield MCV (RBC) [Entitic vol] 100.0 fL Critically high 80.0-94.0 [facility] Comment on above: Performed By: #### M G, CMP #### [facility] [address] [place] [address] Dr. Deepak Greenfield MONO # 0.6 103/ul Normal 0.3-0.8 [facility] Comment on above: Performed By: #### M G, CMP #### [facility] [address] [place] [address] Dr. Deepak Greenfield Monocytes/100 WBC (Bld) 7.6 % Normal 1.7-12.0 [facility] Comment on above: Performed By: #### M G, CMP #### [facility] [address] [place] [address] Dr. Deepak Greenfield NEUT # 3.8 103/ul Normal 1.4-6.5 [facility] Comment on above: Performed By: #### M G, CMP #### [facility] [address] [place] [address] Dr. Deepak Greenfield Neutrophils/100 WBC (Bld) 48.4 % Normal 43.0-75.0 [facility] Comment on above: Performed By: #### M G, CMP #### [facility] [address] [place] [address] Dr. Deepak Greenfield Platelet mean volume (Bld) [Entitic vol] 9.6 fL Normal 9.5-13.5 [facility] Comment on above: Performed By: #### M G, CMP #### [facility] [address] [place] [address] Dr. Deepak Greenfield PLT 315 103/ul Normal 150-450 [facility] Comment on above: Performed By: #### M G, CMP #### [facility] [address] [place] [address] Dr. Deepak Greenfield RBC 4.04 106/ul Critically low 4.70-6.10 [facility] Comment on above: Performed By: #### M G, CMP #### [facility] [address] [place] [address] Dr. Deepak Greenfield WBC 7.9 103/ul Normal 4.0-11.0 [facility] Comment on above: Performed By: #### M G, CMP #### [facility] [address] [place] [address] Dr. Deepak Greenfield DEPAKENE/VALPROICon 01-13-20 DEPAKENE 89.7 ug/ml Normal 50.0-100.0 [facility] Comment on above: Performed By: #### I NFLUAB #### [facility] [address] [place] [address] Dr. Deepak Greenfield PROF CHEM 8 (BAS METB)on Anion gap [Moles/Vol] 12.9 mmol/L Normal [facility] Comment on above: Performed By: #### I NFLUAB #### [facility] [address] [address] [address] Deepak Greenfield Calcium [Mass/Vol] 8.8 mg/dL Normal 8.5-10.1 [facility] Comment on above: Performed By: #### I NFLUAB #### [facility] [address] [place] [address] Dr. Deepak Greenfield Chloride [Moles/Vol] 103 mmol/L Normal 98-107 [facility] Comment on above: Performed By: #### I NFLUAB #### [facility] [address] [address] [address] Deepak Greenfield CO2 [Moles/Vol] 28.1 mmol/L Normal 21.0-32.0 [facility] Comment on above: Performed By: #### I NFLUAB #### [facility] [address] [place] [address] Dr. Deepak Greenfield Creatinine [Mass/Vol] 0.58 mg/dL Critically low 0.70-1.30 [facility] Comment on above: Performed By: #### I NFLUAB #### [facility] [address] [place] [address] Dr. Deepak Greenfield EGFR-AF PRYDEINIG >60 Normal >=60 [facility] Comment on above: Performed By: #### I NFLUAB #### [facility] [address] [address] [address] Deepak Greenfield EGFR-NON AF PRYDEINIG >60 Normal >=60 [facility] Comment on above: Performed By: #### I NFLUAB #### [facility] [address] [address] [address] Deepak Greenfield Glucose [Mass/Vol] 117 mg/dL Critically high 74-106 [facility] Comment on above: Performed By: #### I NFLUAB #### [facility] [address] [address] [address] Deepak Greenfield Potassium [Moles/Vol] 4.0 mmol/L Normal 3.5-5.1 [facility] Comment on above: Performed By: #### I NFLUAB #### [facility] [address] [address] [address] Deepak Greenfield Sodium [Moles/Vol] 140 mmol/L Normal 136-145 [facility] Comment on above: Performed By: #### I NFLUAB #### [facility] [address] [place] [address] Dr. Deepak Greenfield Urea nitrogen [Mass/Vol] 7.0 mg/dL Normal 7.0-18.0 [facility] Comment on above: Performed By: #### I NFLUAB #### [facility] [address] [place] [address] Dr. Deepak Greenfield Urea nitrogen/Creatinine [Mass ratio] 12.1 mg/mg Normal [facility] Comment on above: Performed By: #### I NFLUAB #### [facility] [address] [place] [address] Dr. Deepak Greenfield SGOTon 01-12-2022 AST [Catalytic activity/Vol] 31 U/L Normal 15-37 [facility] Comment on above: Performed By: #### C VDTBH #### [facility] [address] [place] [address] Dr. Deepak Greenfield SGPTon 01-12-2022 ALT [Catalytic activity/Vol] 48 U/L Normal 16-63 [facility] Comment on above: Performed By: #### C VDTBH #### [facility] [address] [place] [address] Dr. Deepak Cardoso PROTEIN SERUMon 01-12-2022 Protein [Mass/Vol] 7.3 g/dL Normal 6.4-8.2 [facility] Comment on above: Performed By: #### B #### [facility] [address] [place], [place] [address] Dr. Deepak Greenfield XR CHEST 2 Von [...] by: ANICETO CROCKER Date: 2022-01-06 16:15 Normal [facility] Progress Noteson 12-16-2021 [employer] Authentication Interface Message Text ----- Thursday, December 16, 2021 at 12:03:50 PM ----- ----- Provider: [id number] -- Clinic: [place] ----- [facility], Pt is ready for tx. Pt presented for dental evaluation for future OR. Caregiver in the room. Patient is non-verbal. Severe intellectual disability, seizure disorder Caregiver stated patient is not pain and no complaining. Radiograph taken today: no possible due to patient behavior Case requested for OR. Guardian mother Katia Lopez. [phone]. [facility] [phone] [id number] ( [facility] pt's appt) AVS printed and handed flyer for step by step instruction of OR process to Caregiver exam By: Elliott Ham [facility]. OR ----- Signed on Thursday, December 16, 2021 at 12:18:18 PM ----- ----- Provider: [id number] Heriberto Adams DDS -- Clinic: [place] ----- Normal [facility] [employer] XR DEXA BONE DENSITYon 11-20 XR [...] MARGARITO DAVIES Date: 2021-11-20 11:42 Normal [facility] US SCROTUMon 11-14-2021 US SCROTUM EXAMINATION: [...] by: KRISTIAN BILLINGS Date: 2021-11-14 07:10 Normal [facility] AMMONIAon 10-31-2021 Ammonia (P) [Moles/Vol] 88 umol/L Critically high 11-32 [facility] Comment on above: Performed By: #### M G, CMP #### [facility] [address] [address] [address] Deepak Greenfield AMMONIAon 10-30-2021 Ammonia (P) [Moles/Vol] 103 umol/L Critically high 11-32 [facility] Comment on above: Result Comment: SPEC IMEN SLIGHTLY HEMOLYZED MAY AFFECT AMM RESULT Performed By: #### I NFLUAB #### [facility] [address] [place] [address] Dr. Deepak Greenfield WOUND CULTUREon 10-23-2021 Bacteria identified Aer cx Nom (Unsp spec) Final report Normal [facility] Comment on above: Performed By: #### C XWND #### [facility] [address] [place] [address] Dr. Deepak Greenfield Result 1 Comment Normal [facility] Comment on above: Result Comment: No g rowth in 36 - 48 hours. Performed By: #### C XWND #### [facility] [address] [place] [address] Dr. Deepak Greenfield WOUND CULTUREon 10-02-2021 Bacteria identified Aer cx Nom (Unsp spec) Final report Normal [facility] Comment on above: Performed By: #### A MM #### [facility] [address] [place] [address] Dr. Deepak Greenfield Result 1 Mixed skin omid Normal [facility] Comment on above: Performed By: #### A MM #### [facility] [address] [place] [address] Dr. Deepak Greenfield AMYLASEon 09-22-2021 Amylase [Catalytic activity/Vol] 24 U/L Critically low 25-115 [facility] Comment on above: Performed By: #### C BC #### [facility] [address] [place] [address] Dr. Deepak Greenfield CBC AUTO DIFFon 09-22-2021 BASO # 0.0 103/ul Normal 0.0-0.1 [facility] Comment on above: Performed By: #### C VDTBH #### [facility] [address] [place] [address] Dr. Deepak Greenfield Basophils/100 WBC (Bld) 0.5 % Normal 0.2-2.0 [facility] Comment on above: Performed By: #### C VDTBH #### [facility] [address] [place] [address] Dr. Deepak Greenfield EO # 0.1 103/ul Normal 0.0-0.7 [facility] Comment on above: Performed By: #### C VDTBH #### [facility] [address] [place] [address] Dr. Deepak Greenfield Eosinophils/100 WBC (Bld) 1.3 % Normal 0.9-7.0 [facility] Comment on above: Performed By: #### C VDTBH #### [facility] [address] [place] [address] Dr. Deepak Greenfield Erythrocyte distribution width (RBC) [Ratio] 13.9 % Normal 11.0-15.0 [facility] Comment on above: Performed By: #### C VDTBH #### [facility] [address] [place] [address] Dr. Deepak Greenfield Hematocrit (Bld) [Volume fraction] 40.0 % Critically low 42.0-54.0 [facility] Comment on above: Performed By: #### C VDTBH #### [facility] [address] [place] [address] Dr. Deepak Greenfield Hemoglobin (Bld) [Mass/Vol] 13.0 g/dL Critically low 14.0-18.0 [facility] Comment on above: Performed By: #### C VDTBH #### [facility] [address] [place] [address] Dr. Deepak Greenfeild IG # 0.01 10e3/ul Normal 0.00-0.03 [facility] Comment on above: Performed By: #### C VDTBH #### [facility] [address] [place] [address] Dr. Deepak Greenfield IG % 0.2 % Normal 0.0-0.5 [facility] Comment on above: Performed By: #### C VDTBH #### [facility] [address] [place] [address] Dr. Deepak Greenfield LYMPH # 3.0 103/ul Normal 1.2-3.8 [facility] Comment on above: Performed By: #### C VDTBH #### [facility] [address] [place] [address] Dr. Deepak Greenfield Lymphocytes/100 WBC (Bld) 47.9 % Normal 20.5-60.0 [facility] Comment on above: Performed By: #### C VDTBH #### [facility] [address] [place] [address] Dr. Deepak Greenfield MANUAL DIFF REQ NO Normal [facility] Comment on above: Performed By: #### C VDTBH #### [facility] [address] [place] [address] Dr. Deepak Greenfield MCH (RBC) [Entitic mass] 32.9 pg Normal 25.9-34.0 [facility] Comment on above: Performed By: #### C VDTBH #### [facility] [address] [place] [address] Dr. Deepak Greenfield MCHC (RBC) [Mass/Vol] 32.5 g/dL Normal 29.9-35.2 [facility] Comment on above: Performed By: #### C VDTBH #### [facility] [address] [place] [address] Dr. Deepak Greenfield MCV (RBC) [Entitic vol] 101.3 fL Critically high 80.0-94.0 [facility] Comment on above: Performed By: #### C VDTBH #### [facility] [address] [place] [address] Dr. Deepak Greenfield MONO # 0.7 103/ul Normal 0.3-0.8 [facility] Comment on above: Performed By: #### C VDTBH #### [facility] [address] [place] [address] Dr. Deepak Greenfield Monocytes/100 WBC (Bld) 10.3 % Normal 1.7-12.0 [facility] Comment on above: Performed By: #### C VDTBH #### [facility] [address] [place] [address] Dr. Deepak Greenfield NEUT # 2.5 103/ul Normal 1.4-6.5 [facility] Comment on above: Performed By: #### C VDTBH #### [facility] [address] [place] [address] Dr. Deepak Greenfield Neutrophils/100 WBC (Bld) 39.8 % Critically low 43.0-75.0 [facility] Comment on above: Performed By: #### C VDTBH #### [facility] [address] [place] [address] Dr. Deepak Greenfield Platelet mean volume (Bld) [Entitic vol] 10.1 fL Normal 9.5-13.5 [facility] Comment on above: Performed By: #### C VDTBH #### [facility] [address] [place] [address] Dr. Deepak Greenfield PLT 311 103/ul Normal 150-450 [facility] Comment on above: Performed By: #### C VDTBH #### [facility] [address] [place] [address] Dr. Deepak Greenfield RBC 3.95 106/ul Critically low 4.70-6.10 [facility] Comment on above: Performed By: #### C VDTBH #### [facility] [address] [place] [address] Dr. Deepak Greenfield WBC 6.3 103/ul Normal 4.0-11.0 [facility] Comment on above: Performed By: #### C VDTBH #### [facility] [address] [place] [address] ABD/PELV W CONon [...] by: JAMIE ALICIA Date: 2021-09-22 02:34 [address] [facility] CT HEAD WO CONon 09-22-2021 CT HEAD [...] BRITTON FONTENOT Date: 2021-09-22 01:13 Normal [facility] LIPASEon 09-22-2021 Lipase [Catalytic activity/Vol] 28.0 U/L Critically low 73.0-393.0 [facility] Comment on above: Performed By: #### C BC #### [facility] [address] [address] [address] Deepak Greenfield PROF 14(COMP METB)on 022 Albumin [Mass/Vol] 3.3 g/dL Critically low 3.4-5.0 [facility] Comment on above: Performed By: #### B MP #### [facility] [address] [address] [address] Deepak Greenfield Albumin/Globulin [Mass ratio] 0.9 {ratio} Normal [facility] Comment on above: Performed By: #### B MP #### [facility] [address] [place] [address] Dr. Deepak Greenfield ALP [Catalytic activity/Vol] 38 U/L Critically low 46-116 [facility] Comment on above: Performed By: #### B MP #### [facility] [address] [address] [address] Deepak Greenfield ALT [Catalytic activity/Vol] 91 U/L Critically high 16-63 [facility] Comment on above: Performed By: #### B MP #### [facility] [address] [place] [address] Dr. Deepak Greenfield Anion gap [Moles/Vol] 10.2 mmol/L Normal [facility] Comment on above: Performed By: #### B MP #### [facility] [address] [address] [address] Deepak Greenfield AST [Catalytic activity/Vol] 50 U/L Critically high 15-37 [facility] Comment on above: Performed By: #### B MP #### [facility] [address] [place] [address] Dr. Deepak Greenfield Bilirubin [Mass/Vol] 0.3 mg/dL Normal 0.2-1.0 [facility] Comment on above: Performed By: #### B MP #### [facility] [address] [address] [address] Deepak Greenfield Calcium [Mass/Vol] 8.6 mg/dL Normal 8.5-10.1 [facility] Comment on above: Performed By: #### B MP #### [facility] [address] [address] [address] Deepak Greenfield Chloride [Moles/Vol] 106 mmol/L Normal 98-107 [facility] Comment on above: Performed By: #### B MP #### [facility] [address] [address] [address] Deepak Greenfield CO2 [Moles/Vol] 29.9 mmol/L Normal 21.0-32.0 [facility] Comment on above: Performed By: #### B MP #### [facility] [address] [place] [address] Dr. Deepak Greenfield Creatinine [Mass/Vol] 0.65 mg/dL Critically low 0.70-1.30 [facility] Comment on above: Performed By: #### B MP #### [facility] [address] [address] [address] Deepak Greenfield EGFR-AF PRYDEINIG >60 Normal >=60 [facility] Comment on above: Performed By: #### B MP #### [facility] [address] [place] [address] Dr. Deepak Greenfield EGFR-NON AF PRYDEINIG >60 Normal >=60 [facility] Comment on above: Performed By: #### B MP #### [facility] [address] [address] [address] Deepak Greenfield Globulin (S) [Mass/Vol] 3.7 g/dL Normal [facility] Comment on above: Performed By: #### B MP #### [facility] [address] [place] [address] Dr. Deepak Greenfield Glucose [Mass/Vol] 105 mg/dL Normal 74-106 [facility] Comment on above: Performed By: #### B MP #### [facility] [address] [place] [address] Dr. Deepak Greenfield Potassium [Moles/Vol] 4.1 mmol/L Normal 3.5-5.1 [facility] Comment on above: Performed By: #### B MP #### [facility] [address] [address] [address] Deepak Greenfield Protein [Mass/Vol] 7.0 g/dL Normal 6.4-8.2 [facility] Comment on above: Performed By: #### B MP #### [facility] [address] [address] [address] Deepak Greenfield Sodium [Moles/Vol] 142 mmol/L Normal 136-145 [facility] Comment on above: Performed By: #### B MP #### [facility] [address] [address] [address] Deepak Greenfield Urea nitrogen [Mass/Vol] 13.0 mg/dL Normal 7.0-18.0 [facility] Comment on above: Performed By: #### B MP #### [facility] [address] [address] [address] Deepak Greenfield Urea nitrogen/Creatinine [Mass ratio] 20.0 mg/mg Normal [facility] Comment on above: Performed By: #### B MP #### [facility] [address] [place] [address] Dr. Deepak Greenfield Vital Signs Date Time Vital Sign Value Performing Clinician Facility 12-16-2022 10:18-0400 Blood Pressure Location Arline Levine [facility] 12-16-2022 10:18-0400 Body temperature 98.06 [degF] Arline Lue [facility] 12-16-2022 10:18-0400 Diastolic blood pressure 78 mm[Hg] Arline Lue [facility] 12-16-2022 10:18-0400 Heart rate 84 /min Arline Levine [facility] 12-16-2022 10:18-0400 Systolic blood pressure 128 mm[Hg] Arline Messinae [facility] 12-23-2021 11:30-0400 Body height 157.48 cm Antionette Leonel Other [facility] 12-23-2021 11:30-0400 Body mass index (BMI) [Ratio] 25.79 kg/m2 Antionette Leonel Other [facility] 12-23-2021 11:30-0400 Body temperature 98.5 [degF] Antionette Leonel Other [facility] 12-23-2021 11:30-0400 Body weight 63.96 kg Antionette Leonel Other [facility] 12-23-2021 11:30-0400 Diastolic blood pressure 70 mm[Hg] Antionette Leonel Other [facility] 12-23-2021 11:30-0400 Respiratory rate 20 /min Antionette Leonel Other [facility] 12-23-2021 11:30-0400 SaO2% (BldA) [Mass fraction] 99 % Antionette Leonel Other [facility] 12-23-2021 11:30-0400 Systolic blood pressure 120 mm[Hg] Antionette Leonel Other [facility] 10-22-2021 10:29-0400 Blood Pressure Location Arline Levine [facility] 10-22-2021 10:29-0400 Diastolic blood pressure 92 mm[Hg] [facility] 10-22-2021 10:29-0400 Heart rate 100 /min [facility]ue [facility] 10-22-2021 10:29-0400 Respiratory rate 16 /min [facility] Lue [facility] 10-22-2021 10:29-0400 Systolic blood pressure 137 mm[Hg] Arline Lue [facility] Encounters Encounter Date Encounter Type Care Provider Facility Start: 11-07-2023 End: 11-07-2023 Letter encounter Abundioabbie Mares DDS Work Phone: [facility] Start: 08-25-2023 End: 08-25-2023 ambulatory RODRIGUEZ VANG Not Available Start: 07-06-2023 End: 07-06-2023 ambulatory [facility] Work Phone: Start: 07-06-2023 End: 07-06-2023 Patient encounter procedure [facility] Work Phone: Start: 01-05-2023 End: 01-05-2023 ambulatory Antionette Leonel Other [facility] Other Start: 01-05-2023 Office outpatient visit 25 minutes Antionette Leonel [facility] Start: 12-16-2022 End: 12-17-2022 ambulatory Arline M. Lue Facility:[facility] Start: 12-16-2022 End: 12-16-2022 Patient encounter procedure Arline M. Lue [facility] Start: 08-04-2022 End: 08-04-[address] FAM VENTURA Facility:[facility] Start: 07-29-2022 End: 08-02-2022 Evaluation and management of inpatient DR FAM VENTURA Facility:[facility] Start: 07-26-2022 End: 07-27-[address] FAM VENTURA Facility:[facility] Start: 07-23-2022 End: 07-24-2022 ambulatory FAM VENTURA Facility:[facility] Start: 07-23-2022 End: 07-23-2022 Patient encounter procedure FAM VENTURA [facility] Start: 06-23-2022 End: 06-23-2022 ambulatory Antionette Leonel Other [facility] Other Start: 06-23-2022 Office outpatient visit 25 minutes Antionette Leonel [facility] Start: 06-03-2022 End: 06-04-[address] FAM VENTURA Facility:[facility] Start: 05-08-2022 Letter encounter Abundio Blancobeatrice ACEVES Work Phone: [facility] Start: 04-22-2022 End: 04-23-[address] FAM VENTURA Facility:[facility] Start: 03-19-2022 End: 03-20-[address] FAM EVNTURA Facility:[facility] Start: 03-10-2022 End: 03-11-[address] FAM VENTURA Facility:[facility] Start: 01-24-2022 End: 01-24-[address] DIAMOND BURGER . Facility:[facility] Start: 01-18-2022 End: 01-18-2022 ambulatory ANJELICA DOLL . Facility:[facility] Start: 01-13-[address] [facility] Start: 01-12-2022 End: 01-13-[address] RODRIGUEZ VANG Facility:[facility] Start: 01-06-2022 End: 01-07-[address] FAM VENTURA Facility:[facility] Start: 12-23-2021 End: 12-23-2021 ambulatory Antionette Castaneda Other [facility] Other Start: 12-23-2021 Office outpatient visit 25 minutes Antionette Leonel [facility] Start: 12-16-2021 End: 12-17-2021 ambulatory [facility]KNOWN PROVIDER [facility] Start: 12-16-2021 End: 12-17-2021 Patient encounter procedure Mora Powell [facility] Work Phone: [facility] Start: 12-10-2021 End: 12-10-2021 Patient encounter procedure Arline Levine [facility] Start: 11-20-2021 End: 11-21-[address] FAM VENTURA Facility:[facility] Start: 11-13-2021 End: 11-14-2021 ambulatory ARLINE Duenas Facility:[facility] Start: 10-31-2021 End: 11-01-[address] FAM VENTURA Facility:[facility] Start: 10-22-2021 End: 10-22-2021 Patient encounter procedure Arline Levine [facility] Start: 10-21-2021 End: 10-21-[address] FAM VENTURA Facility:[facility] Start: 09-29-2021 End: 09-29-[address] FAM VENTURA Facility:[facility] Start: 09-22-2021 End: 09-22-2021 ambulatory ABBI SANCHEZ Facility:[facility] Plan of Treatment Date Care Activity Detail Author Start: 02-01-2030 Shingles (RZV) Vacci ne (1 of 2) Shingles (RZV) Vaccine (1 of 2) [facility] Start: 01-18-2024 Influenza vaccination Influenza Vacc ine (#[facility] Start: 12-18-2022 COVID-19 Vaccine ( season) COVID-19 Vaccine ( season) [facility] Start: 01-17-2022 Influenza vaccination Influenza Vacc ine (#1) [facility] Start: 02-01-2015 Lipid panel Cholesterol [facility] Start: 05-20-2012 Annual wellness visit Annual W ellness Visit ([id number]) [facility] Start: 02-01-2007 HPV Vaccine (optiona l start 27-45 years) HPV Vaccine (optional start 27-45 years) [facility] Start: 02-01-1999 Hepatitis A (HAV) Va ccine (optional start 19+ years) Hepatitis A (HAV) Vaccine (optional start 19+ years) [facility] Start: 02-01-1999 Hepatitis B vaccination Hepati tis B (HBV) Vaccine (1 of 3 - 19+ 3-dose series) [facility] Start: 02-01-1998 Hepatitis C screening Hepatitis C An tibody [facility] Start: 02-01-1998 Tetanus + diphtheria + acellular pertussis vaccine (product) [facility] Start: 02-01-1995 HIV screening HIV Test [facility] Start: 1980 COVID-19 Vaccine (#1) COVID-19 Vacci ne (#1) [facility] Immunizations Immunization Date Immunization Notes Care Provider Lucero ibrahim 03-04-2020 pneumococcal conjuga te vaccine, 13 valent Mora Urmetz [facility] Work Phone: [facility] 01-26-2018 influenza, injectabl e, quadrivalent, preservative free Mora Urmetz [facility] Work Phone: [facility] 01-26-2018 influenza virus vaccine, unspecified formulation Mora Urmetz [facility] Work Phone: [facility] 02-10-2017 influenza virus vaccine, unspecified formulation Arline Levine [facility] 02-10-2017 influenza, injectabl e, quadrivalent, contains preservative Mroa Urmetz [facility] Work Phone: [facility] 02-07-2015 influenza virus vaccine, unspecified formulation Arline Levine [facility] 02-07-2015 influenza, injectabl e, quadrivalent, preservative free Mora Urmetz [facility] Work Phone: [facility] 10-23-2014 pneumococcal polysaccharide vaccine, 23 valent Mora Urmetz RDH Work Phone: [facility] 12-31-2010 influenza virus vaccine, unspecified formulation Arline Lukaren [facility] 12-31-2010 influenza, seasonal, injectable Mora Urmetz [facility] Work Phone: [facility] 03-06-2009 novel [id number], preservative-free, injectable Mora Urmetz [facility] Work Phone: [facility] 02-09-2008 influenza virus vaccine, whole virus Mora Urmetz RD Work Phone: [facility] 02-09-2008 influenza, whole Arline Lue [facility] NEGATED: Highlighted row has not occurred!12-10-2021 SARS-CoV-2 mRNA (tozinameran 5y-11y) vaccine Arline Lue [facility] Payers Date Payer Category Payer Medicaid [id number] 2011 Medicare MEDICARE MEDICAR E PART A & B [id number] 2011-Present [address] [place] [address] Medicare [id number] 1980 Unknown [id number] 2.16.840.1.000419.3.579.2.732 1980 Unknown [id number] 2.16.840.1.194133.3.579.2.593 1980 Unknown [id number] 2.16.840.1.609414.3.579.2.593 1980 Unknown [id number] 2.16.840.1.968955.3.579.2.593 1980 Unknown [id number] 2.16.840.1.281058.3.579.2.593 1980 Unknown [id number] 2.16.840.1.334683.3.579.2.727 1980 Unknown [id number] 2.16.840.1.263843.3.579.2.727 1980 Unknown [id number] 2.16.840.1.359641.3.579.2.1259 1959 Medicaid [id number] 1959 Medicare [id number] 2.16.840.1.320118.19 1953 Unknown [id number] 2.16.840.1.009397.3.579.2.593 1953 Unknown [id number] 2.16.840.1.722700.3.579.2.593 1953 Unknown [id number] 2.16.840.1.587334.3.579.2.593 1953 Unknown [id number] 2.16.840.1.125833.3.579.2.593 1953 Unknown [id number] 2.16.840.1.210346.3.579.2.593 1953 Unknown [id number] 2.16.840.1.881846.3.579.2.593 1953 Unknown [id number] 2.16.840.1.971260.3.579.2.593 1953 Unknown [id number] 2.16.840.1.295723.3.579.2.593 1953 Unknown [id number] 2.16.840.1.361265.3.579.2.593 1953 Unknown [id number] 2.16.840.1.111185.3.579.2.593 1953 Unknown [id number] 2.16.840.1.171793.3.579.2.593 1953 Unknown [id number] 2.16.840.1.743252.3.579.2.593 1953 Unknown [id number] 2.16.840.1.720710.3.579.2.593 1953 Unknown [id number] 2.16.840.1.194330.3.579.2.593 Self-pay Self Pay [id number] Social History Date Type Detail Facility Tobacco smoking status No Smoking Status Entered [facility] Sex Assigned At Male [facility] Start: 03-28-2020 Tobacco smoking status NHIS Tobacco smoking consumption unknown [facility] Start: 1980 [facility] Tobacco smoking status No Smoking Status Entered [facility] Start: 12-16-2022 Tobacco smoking status Never smoked tobacco (finding) [facility] Tobacco smoking status Never [facility] Start: 1980 Sex Assigned At Male [facility] Functional Status Date Assessment Result Facility 12-16-2022 Functional Status N/A [facility] 12-10-2021 Functional Status N/A [facility] 10-22-2021 Functional Status N/A [facility] Clinical Notes 10-22-2021 to 01-05-2023 Note Date & Type Note Facility 01-05-2023 Evaluation note Encounter Date Diagnosis Assessment Notes Dec, COPD (chronic obstructive pulmonary disease) (ICD-10 - J44.9) [facility] Other 08-30-2023 Hospital Discharge instructions Patient Education [...] provider. Document Revised: 08/14/2021 Document Reviewed: 08/14/2021 [employer] Patient Education 2022 XTWIP. Follow Up Care 12/10/2021 11:51:23 With:Abner BYRNE, JUNIOR Hawk, URO Address: When: Unknown Comments:PRN [facility] 03-07-2023 Evaluation note* Encounter Date Diagnosis Assessment Notes Treatment Notes Treatment Clinical Notes Jun, COPD (chronic obstructive pulmonary disease) (ICD-10 - J44.9) Continue with respiratory regemin, including VEST therapy, as you currently are doing. Call office with respiratory questions or concerns. [facility] Other 09-06-2022 Evaluation note* Encounter Date Diagnosis Assessment Notes Treatment Notes Treatment Clinical Notes Dec, COPD (chronic obstructive pulmonary disease) (ICD-10 - J44.9) Continue with VEST therapy twice a day. Ok to increase to TID if needed. [facility] 08-30-2022 NotePt presented today for OR evaluation. Limited eval was completed. Pt's case is not urgent updated contact information and placed Pt on OR list. Step by step process for OR flyer was given to caregiver. Please wait for phone call from OR coordinator.[employer] [id number] Instructions* Patient Instructions * Mora Powell RDH - 12/16/2021 11:57 AM EDT Pt presented today for OR evaluation. Limited eval was completed. Pt's case is not urgent updated contact information and placed Pt on OR list. Step by step process for OR flyer was given to caregiver. Please wait for phone call from OR coordinator. documented in this [id number] History of Present illness Narrative* Mora Powell RDH - 12/16/2021 11:42 AM EDT ----- Thursday, December 16, 2021 at 12:03:50 PM ----- ----- Provider: [id number] Heriberto Powell Hygienist -- Clinic: [place] ----- [facility], Pt is ready for tx. Pt presented for dental evaluation for future OR. Caregiver in the room. Patient is non-verbal. Severe intellectual disability, seizure disorder Caregiver stated patient is not pain and no complaining. Radiograph taken today: no possible due to patient behavior Case requested for OR. Guardian mother Katia Lopez. [phone]. [facility] [phone] [id number] ( [facility] pt's appt) AVS printed and handed flyer for step by step instruction of OR process to Caregiver exam By: Elliott Ham [facility] [place]. OR ----- Signed on Thursday, December 16, 2021 at 12:18:18 PM ----- ----- Provider: [id number] Heriberto Aadms DDS -- Clinic: [place] ----- documented in this [id number] Hospital Discharge instructions Patient Education 12/10/2021 11:47:35 [...] (electrical nerve stimulation). For women, using a manager medical to prevent urine leaks. This is a [...] right after experiencing incontinence. General instructions Take bsuq-aoj-yahedsr and prescription medicines only as told by [...] 05/13/2005 Document Revised: 04/15/2018 Document Reviewed: 07/15/2017 [employer] Patient Education [employer]. Follow Up Care 10/22/2021 11:38:20 With:Abner BYRNE, JUNIOR Hawk, URO Address: When:1 year Comments:W/ renal US [facility] 07-06-2022 Hospital Discharge instructions Patient Education 10/22/2021 [...] (electrical nerve stimulation). For women, using a manager medical to prevent urine leaks. This is a [...] right after experiencing incontinence. General instructions Take lplq-mnd-rlykclx and prescription medicines only as told by [...] 05/13/2005 Document Revised: 04/15/2018 Document Reviewed: 07/15/2017 [employer] Patient Education 2020 XTWIP. 10/22/2021 11:42:30 Renal Mass Renal Mass A [...] provider gives to you. In general: Take mdhz-nmz-dxjoqnu and prescription medicines only as told by [...] 10/31/2014 Document Revised: 05/12/2018 Document Reviewed: 05/12/2018 [employer] Patient Education 2020 XTWIP. Follow Up Care 09/22/2021 14:10:46 With:Arline Levine MD, URL, URO Address: When:1 month [facility] evaluation + Plan note Future Appointments Appointment Date:11/19/2021 10:00:00 AM Scheduled Provider:Arline Levine MD Location:[facility] Appointment Type:URO Office Visit [facility] evaluation + Plan note Future Appointments Appointment Date:12/16/2022 10:15:00 AM Scheduled Provider:Arline Levine MD Location:[facility] Appointment Type:URO Office Visit [facility] evaluation note* Diagnosis Onset Date Resolution Status COPD (chronic obstructive pulmonary disease) acute Severe intellectual disability [facility] Work Phone: [facility]vrml general Narrative - Reported* Type Description Date Medical History Mental retardation Medical History Seizure Disorder Medical History Tristen Syndrome Medical History ADD Medical History Hypothyroidism Medical History Spastic Quadraparesis Medical History Osteoporosis Medical History Tristen-Beuren syndrome Medical History Seizure disorder Medical History Seizure disorder Medical History COPD Surgical History VNS REPLACED 2021 [facility] Hospital course Narrative No data available for this section [facility] Discharge instructions No data available for this section [facility] No data available for this section [facility] Summary Purpose Family History No Family History [...] Care Team (unrecognized sect ion and content) Psychiatric Aide Relationship Specialty Start Date End Date Abundio Mares DDS [address] [place] [id number] Resident Dentistry 02/23/20 Psychiatric Aide Relationship Specialty Start Date End Date Abundio Mares DDS [address] [place] [address] Resident Dentistry 02/23/20 Team Status: Active Member Role Status Dates Fam Ventura , DO Primary Care Provider Active Team Status: Inactive Member Role Status Dates Fam Ventura , Primary Care Provider Active Start: July 06, 2023 End: July 06, 2023 Antionette Castaneda APRN ACN- Attending Provider Active Start: July 06, 2023 End: July 06, 2023 Psychiatric Aide Relationship Specialty Start Date End Date Abundio Mares DDS [address] [place] [address] Resident Dentistry 02/23/20 (unrecognized sect ion and content) No Status Records FoundNo Status Records FoundNo Status Records FoundNo Status Records Found INFORMATION SOURCE (unrecogn ized section and content) DATE CREATED AUTHOR 12/18/2021 [employer] DATE CREATED AUTHOR AUTHOR'S ORGANIZ ATION 08/05/2022 [facility] DATE CREATED AUTHOR AUTHOR'S ORGANIZ ATION 01/26/2023 [facility] DATE CREATED AUTHOR AUTHOR'S ORGANIZ ATION 08/27/2023 [facility] Specialists EPIC REASON FOR VISIT (unrecogniz ed [...] BE BASED ON THE PRIMARY CLINICAL RECORDS. [facility] provides no warranty or guarantee of the accuracy or completeness of information in this document.
--- OUTSIDE RECORDS SUMMARY | 2023-12-07 07:26 | XMS_ITS | CCD ---
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 (9 sources) Phenytoin; Translations: [phenytoin] Drug Allergy 01-06-20 23 Unknown, Unknown Reaction [facility] (13 sources) Promethazine; Translations: [promethazine] Drug Allergy 05-12-19 17 Unknown, Unknown Reaction [facility] (4 sources) Phenytoin; Translations: [PHENYTOIN SODIUM EXTENDED] Drug Allergy 05-12-19 17 [facility] (4 sources) AMOXICILLIN-POT CLAVULANATE; Translations: [AMOXICILLIN-POT CLAVULANATE] Propensity to adverse reactions to drug (disorder) 05-12-19 17 [facility] (1 source) 4-Aminobenzoic Acid Drug Allergy [facility] (1 source) Amoxicillin / Clavulanate Drug Allergy 05-29-19 14 [facility] (1 source) Levamisole Drug Allergy 05-29-19 14 [facility] (1 source) metroNIDAZOLE Drug Allergy [facility] (1 source) Phenytoin Drug Allergy 05-29-19 14 [facility] (1 source) remdesivir (investigational use) Drug allergy (disorder) [facility] (1 source) Amoxicillin Drug Allergy 01-06-20 23 Unknown Reaction [facility] (1 source) Clavulanate Drug Allergy 01-06-20 23 Unknown Reaction [facility] Medications Current Medications Medication Drug Class(es) Dates Sig (Normalized) Sig (Original) Acetaminophen (6 sources) Start: 12-16-2022 acetaminophen Refills(s) 0 Start Date: 12/16/22 Status: Ordered Start: 03-28-2020 Acetaminophen Active 650 MG ND EVERY 4-6 HOURS March 28, 2020 1:00am [...] 1:00am 10MG RECTAL GEL, PATIENT TAKES IT ND - wont let me save without route. Start: 07-05-2015 diazepam 10 mg , Rectal, PRN Seizure, Refills(s) 0 Start Date: 07/05/15 Status: Ordered docusate sodium 100 mg oral capsule (8 sources) Start: 10-22-2021 take 1 capsule by mo [facility] twice daily as needed for constipation docusate sodium 100 mg Cap 100 mg = 1 cap(s), Oral, BID, PRN for constipation, # 20 cap(s), Refills(s) 0 Start Date: 10/22/21 Status: Ordered Start: 03-28-2020 take 200 mg by mouth once daily in the morning Docusate Sodium Active 200 MG PO Every morning March 28, 2020 1:00am take 1 capsule by [facility] every twenty-four hours Docusate Sodium 100 MG [...] 02/23/2020 Active take 2 tablets by mo [facility] in the morning, then take 3 tablets [...] 07/04/15 Status: Ordered take 1 tablet by [facility] every twenty-four hours Levothyroxine Sodium 150 MCG [...] Ordered Normal saline (7 sources) Start: 07-05-2015 Alborn Saline Alpa al Gel Nasal, TID, Refill(s) 0, Dry nasal passages Start Date: 07/05/15 Status: Ordered Alborn Saline Nasal Gel Nasally Active omeprazole 40 [...] bid, Prophylaxis Start Date: 07/05/15 Status: Ordered [id number] oral powder for reconstitution (1 source) Start: [id number] oral powder for reconstitution Start Date: 12/16/22 Status: Ordered polyethylene glycol 3350 30675 mg powder for oral solution (4 sources) [...] 0 Start Date: 10/22/21 Status: Ordered sennosides, care home 8.6 mg oral tablet (1 source) Start: [...] e a day Active Sodium Chloride-Aloe Vera (Alborn Saline) gel (1 source) Start: 06-28-2023 Sodium Chlorid e-Aloe Vera (Alborn Saline) gel Active 1 APPLIC TOPICAL Daily [...] 06-30-2013 Chronic Other aftercare (5 sources) Other chcf (current) drug therapy; Translations: [OTH LONG-TERM CURRENT DRUG THERAPY] Onset: 06-03-2022 Episodic Other [...] (oxcarbazepine 600 mg Tab) polyethylene glycol 3350 ([id number] oral powder for reconstitution) polyethylene glycol 3350 (polyethylene glycol 3350 17 gram packet) rifaximin (Xifaxan 550 mg oral tablet) senna (Senna 8.6 mg oral tablet) sodium chloride nasal (Alborn Saline Nasal Gel) tamsulosin Discharge Vitals Temperature [...] Application T (more content not included)... Normal [facility] Patient Educationon 12-17-19 23 Patient Education [...] provider. Document Revised: 08/14/2021 Document Reviewed: 08/14/2021 [employer] Patient Education ? 2022 [employer] Normal [facility] Physician Orderon 12-16-2022 Physician Order [id number] .[id number]:127 Normal [facility] RAD - Ultrasound Reporton RAD - Ultrasound Report [id number] .[id number]:127 Normal [facility] Urology Office/Clinic Noteon 12-16-2022 Urology Office/Clinic [...] of retractile testes. Pt currently resides in [facility]. CBC/CMP 08/01/22 1. Retractile testis (Q55.22: [...] Eye-Both, QID atorvastatin, 10 mg, Oral, Daily Alborn Saline Nasal Gel, Nasal, TID azelastine nasal 137 mcg/inh spray, 2 spray(s), Nasal, As (more content not included)... Normal [facility] Comment on above: Result Comment: Elec [...] GUANAKITO MEADE Date: 2022-08-04 18:50 Normal [facility] AMMONIAon 08-02-2022 Ammonia (P) [Moles/Vol] 87 umol/L Critically high 11-32 [facility] Comment on above: Performed By: #### B MP #### [facility] [address] [place] [address] Dr. Deepak Greenfield AMMONIAon 08-01-2022 Ammonia (P) [Moles/Vol] 42 umol/L Critically high [facility] Comment on above: Performed By: #### M G, CMP #### [facility] [address] [place] [address] Dr. Deepak Greenfield CBC W MANUAL DIFFon 08-02-19 23 ATYPICAL LYMPH # 0.41 103/ul Normal [facility] Comment on above: Performed By: #### M G, CMP #### [facility] [address] [place] [address] Dr. Deepak Greenfield ATYPICAL LYMPH % 7 % Normal [facility] Comment on above: Performed By: #### M G, CMP #### [facility] [address] [place] [address] Dr. Deepak Greenfield BAND # 0.0 103/ul Normal 0.0-0.3 [facility] Comment on above: Performed By: #### M G, CMP #### [facility] [address] [place] [address] Dr. Deepak Greenfield BAND % 0 % Normal 0-5 [facility] Comment on above: Performed By: #### M G, CMP #### [facility] [address] [place] [address] Dr. Deepak Greenfield BASOM # 0.00 103/ul Normal 0.00-0.10 [facility] Comment on above: Performed By: #### M G, CMP #### [facility] [address] [place] [address] Dr. Deepak Greenfield BASOM % 0.0 % Critically low 0.2-2.0 [facility] Comment on above: Performed By: #### M G, CMP #### [facility] [address] [place] [address] Dr. Deepak Greenfield BLAST # Normal [facility] Comment on above: Performed By: #### M G, CMP #### [facility] [address] [place] [address] Dr. Deepak Greenfield BLAST % Normal [facility] Comment on above: Performed By: #### M G, CMP #### [facility] [address] [place] [address] Dr. Deepak Greenfield CORRECTED WBC Normal 4.0-11.0 [facility] Comment on above: Performed By: #### M G, CMP #### [facility] [address] [place] [address] Dr. Deepak Greenfield EOS # 0.06 103/ul Normal 0.00-0.70 [facility] Comment on above: Performed By: #### M G, CMP #### [facility] [address] [place] [address] Dr. Deepak Greenfield EOS% 1.0 % Normal 0.9-7.0 [facility] Comment on above: Performed By: #### M G, CMP #### [facility] [address] [place] [address] Dr. Deepak Greenfield HCT 37.6 % Critically low 42.0-54.0 [facility] Comment on above: Performed By: #### M G, CMP #### [facility] [address] [place] [address] Dr. Deepak Greenfield HGB 12.3 g/dl Critically low 14.0-18.0 [facility] Comment on above: Performed By: #### M G, CMP #### [facility] [address] [place] [address] Dr. Deepak Greenfield LYMPHM # 1.91 103/ul Normal 1.20-3.80 [facility] Comment on above: Performed By: #### M G, CMP #### [facility] [address] [place] [address] Dr. Deepak Greenfield LYMPHM% 33.0 % Normal 20.5-60.0 [facility] Comment on above: Performed By: #### M G, CMP #### [facility] [address] [place] [address] Dr. Deepak Greenfield MCH 31.7 pg Normal 25.9-34.0 [facility] Comment on above: Performed By: #### M G, CMP #### [facility] [address] [address] [address] Deepak Greenfield MCHC 32.7 g/dl Normal 29.9-35.2 [facility] Comment on above: Performed By: #### M G, CMP #### [facility] [address] [address] [address] Deepak Greenfield MCV 96.9 fL Critically high 80.0-94.0 [facility] Comment on above: Performed By: #### M G, CMP #### [facility] [address] [place] [address] Dr. Deepak Greenfield METAMYELOCYTE # Normal [facility] Comment on above: Performed By: #### M G, CMP #### [facility] [address] [place] [address] Dr. Deepak Greenfield METAMYELOCYTE % Normal [facility] Comment on above: Performed By: #### M G, CMP #### [facility] [address] [place] [address] Dr. Deepak Greenfield MONOM# 0.29 103/ul Critically low 0.30-0.80 [facility] Comment on above: Performed By: #### M G, CMP #### [facility] [address] [place] [address] Dr. Deepak Greenfield MONOM% 5.0 % Normal 1.7-12.0 [facility] Comment on above: Performed By: #### M G, CMP #### [facility] [address] [place] [address] Dr. Deepak Greenfield MPV 11.0 fL Normal 9.5-13.5 [facility] Comment on above: Performed By: #### M G, CMP #### [facility] [address] [place] [address] Dr. Deepak Greenfield MYELOCYTE # Normal [facility] Comment on above: Performed By: #### M G, CMP #### [facility] [address] [place] [address] Dr. Deepak Greenfield MYELOCYTE % Normal [facility] Comment on above: Performed By: #### M G, CMP #### [facility] [address] [address] [address] Deepak Greenfield NRBC Normal [facility] Comment on above: Performed By: #### M G, CMP #### [facility] [address] [address] [address] Deepak Greenfield PLT 208 103/ul Normal 150-450 [facility] Comment on above: Performed By: #### M G, CMP #### [facility] [address] [address] [address] Deepak Greenfield RBC 3.88 106/ul Critically low 4.70-6.10 [facility] Comment on above: Performed By: #### M G, CMP #### [facility] [address] [place] [address] Dr. Deepak Greenfield RDW 12.9 % Normal 11.0-15.0 [facility] Comment on above: Performed By: #### M G, CMP #### [facility] [address] [address] [address] Deepak Greenfield SEG # 3.13 103/ul Normal 1.40-6.50 [facility] Comment on above: Performed By: #### M G, CMP #### [facility] [address] [address] [address] Deepak Greenfield SEG % 54.0 % Normal 43.0-75.0 [facility] Comment on above: Performed By: #### M G, CMP #### [facility] [address] [place] [address] Dr. Deepak Greenfield STOMATOCYTES 3+ Normal [facility] Comment on above: Performed By: #### M G, CMP #### [facility] [address] [address] [address] Deepak Greenfield WBC 5.8 103/ul Normal 4.0-11.0 [facility] Comment on above: Performed By: #### M G, CMP #### [facility] [address] [place] [address] Dr. Deepak Greenfield PROF CHEM 8 (BAS METB)on Anion gap [Moles/Vol] 16.1 mmol/L Normal [facility] Comment on above: Performed By: #### B MP #### [facility] [address] [place] [address] Dr. Deepak Greenfield Calcium [Mass/Vol] 9.3 mg/dL Normal 8.5-10.1 [facility] Comment on above: Performed By: #### B MP #### [facility] [address] [place] [address] Dr. Deepak Greenfield Chloride [Moles/Vol] 105 mmol/L Normal 98-107 [facility] Comment on above: Performed By: #### B MP #### [facility] [address] [place] [address] Dr. Deepak Greenfield CO2 [Moles/Vol] 27.6 mmol/L Normal 21.0-32.0 [facility] Comment on above: Performed By: #### B MP #### [facility] [address] [place] [address] Dr. Deepak Greenfield Creatinine [Mass/Vol] 0.96 mg/dL Normal 0.70-1.30 [facility] Comment on above: Performed By: #### B MP #### [facility] [address] [place] [address] Dr. Deepak Greenfield EGFR-AF MONGOLIAN >60 Normal >=60 [facility] Comment on above: Performed By: #### B MP #### [facility] [address] [address] [address] Deepak Greenfield EGFR-NON AF MONGOLIAN >60 Normal >=60 [facility] Comment on above: Performed By: #### B MP #### [facility] [address] [place] [address] Dr. Deepak Greenfield Glucose [Mass/Vol] 160 mg/dL Critically high 74-106 [facility] Comment on above: Performed By: #### B MP #### [facility] [address] [place] [address] Dr. Deepak Greenfield Potassium [Moles/Vol] 3.7 mmol/L Normal 3.5-5.1 [facility] Comment on above: Performed By: #### B MP #### [facility] [address] [place] [address] Dr. Deepak Greenfield Sodium [Moles/Vol] 145 mmol/L Normal 136-145 [facility] Comment on above: Performed By: #### B MP #### [facility] [address] [place] [address] Dr. Deepak Greenfield Urea nitrogen [Mass/Vol] 5.0 mg/dL Critically low 7.0-18.0 [facility] Comment on above: Performed By: #### B MP #### [facility] [address] [place] [address] Dr. Deepak Greenfield Urea nitrogen/Creatinine [Mass ratio] 5.2 mg/mg Normal [facility] Comment on above: Performed By: #### B MP #### [facility] [address] [place] [address] Dr. Deepak Greenfield AMMONIAon 07-31-2022 Ammonia (P) [Moles/Vol] 94 umol/L Critically high 11-32 [facility] Comment on above: Performed By: #### M G, CMP #### [facility] [address] [place] [address] Dr. Deepak Greenfield CBC AUTO DIFFon 07-31-2022 BASO # 0.0 103/ul Normal 0.0-0.1 [facility] Comment on above: Performed By: #### B MP #### [facility] [address] [place] [address] Dr. Deepak Greenfield Basophils/100 WBC (Bld) 0.1 % Critically low 0.2-2.0 [facility] Comment on above: Performed By: #### B MP #### [facility] [address] [place] [address] Dr. Deepak Greenfield EO # 0.0 103/ul Normal 0.0-0.7 [facility] Comment on above: Performed By: #### B MP #### [facility] [address] [place] [address] Dr. Deepak Greenfield Eosinophils/100 WBC (Bld) 0.0 % Critically low 0.9-7.0 [facility] Comment on above: Performed By: #### B MP #### [facility] [address] [place] [address] Dr. Deepak Greenfield Erythrocyte distribution width (RBC) [Ratio] 13.1 % Normal 11.0-15.0 [facility] Comment on above: Performed By: #### B MP #### [facility] [address] [place] [address] Dr. Deepak Greenfield Hematocrit (Bld) [Volume fraction] 32.4 % Critically low 42.0-54.0 [facility] Comment on above: Performed By: #### B MP #### [facility] [address] [place] [address] Dr. Deepak Greenfield Hemoglobin (Bld) [Mass/Vol] 10.9 g/dL Critically low 14.0-18.0 [facility] Comment on above: Performed By: #### B MP #### [facility] [address] [place] [address] Dr. Deepak Greenfield IG # 0.02 10e3/ul Normal 0.00-0.03 [facility] Comment on above: Performed By: #### B MP #### [facility] [address] [place] [address] Dr. Deepak Greenfield IG % 0.3 % Normal 0.0-0.5 [facility] Comment on above: Performed By: #### B MP #### [facility] [address] [place] [address] Dr. Deepak Greenfield LYMPH # 2.7 103/ul Normal 1.2-3.8 [facility] Comment on above: Performed By: #### B MP #### [facility] [address] [place] [address] Dr. Deepak Greenfield Lymphocytes/100 WBC (Bld) 38.9 % Normal 20.5-60.0 [facility] Comment on above: Performed By: #### B MP #### [facility] [address] [place] [address] Dr. Deepak Greenfield MANUAL DIFF REQ NO Normal [facility] Comment on above: Performed By: #### B MP #### [facility] [address] [place] [address] Dr. Deepak Greenfield MCH (RBC) [Entitic mass] 32.3 pg Normal 25.9-34.0 [facility] Comment on above: Performed By: #### B MP #### [facility] [address] [place] [address] Dr. Deepak Greenfield MCHC (RBC) [Mass/Vol] 33.6 g/dL Normal 29.9-35.2 [facility] Comment on above: Performed By: #### B MP #### [facility] [address] [place] [address] Dr. Deepak Greenfield MCV (RBC) [Entitic vol] 96.1 fL Critically high 80.0-94.0 [facility] Comment on above: Performed By: #### B MP #### [facility] [address] [place] [address] Dr. Deepak Greenfield MONO # 0.3 103/ul Normal 0.3-0.8 [facility] Comment on above: Performed By: #### B MP #### [facility] [address] [place] [address] Dr. Deepak Greenfield Monocytes/100 WBC (Bld) 4.9 % Normal 1.7-12.0 [facility] Comment on above: Performed By: #### B MP #### [facility] [address] [place] [address] Dr. Deepak Greenfield NEUT # 3.9 103/ul Normal 1.4-6.5 [facility] Comment on above: Performed By: #### B MP #### [facility] [address] [place] [address] Dr. Deepak Greenfield Neutrophils/100 WBC (Bld) 55.8 % Normal 43.0-75.0 [facility] Comment on above: Performed By: #### B MP #### [facility] [address] [place] [address] Dr. Deepak Greenfield Platelet mean volume (Bld) [Entitic vol] 9.7 fL Normal 9.5-13.5 [facility] Comment on above: Performed By: #### B MP #### [facility] [address] [place] [address] Dr. Deepak Greenfield PLT 296 103/ul Normal 150-450 [facility] Comment on above: Performed By: #### B MP #### [facility] [address] [address] [address] Deepak Greenfield RBC 3.37 106/ul Critically low 4.70-6.10 [facility] Comment on above: Performed By: #### B MP #### [facility] [address] [address] [address] Deepak Greenfield WBC 7.0 103/ul Normal 4.0-11.0 [facility] Comment on above: Performed By: #### B MP #### [facility] [address] [place] [address] Dr. Deepak Greenfield PROF CHEM 8 (BAS METB)on Anion gap [Moles/Vol] 14.9 mmol/L Normal [facility] Comment on above: Performed By: #### C BC #### [facility] [address] [place] [address] Dr. Deepak Greenfield Calcium [Mass/Vol] 8.8 mg/dL Normal 8.5-10.1 [facility] Comment on above: Performed By: #### C BC #### [facility] [address] [place] [address] Dr. Deepak Greenfield Chloride [Moles/Vol] 105 mmol/L Normal 98-107 [facility] Comment on above: Performed By: #### C BC #### [facility] [address] [address] [address] Deepak Greenfield CO2 [Moles/Vol] 26.4 mmol/L Normal 21.0-32.0 [facility] Comment on above: Performed By: #### C BC #### [facility] [address] [place] [address] Dr. Deepak Greenfield Creatinine [Mass/Vol] 0.70 mg/dL Normal 0.70-1.30 [facility] Comment on above: Performed By: #### C BC #### [facility] [address] [address] [address] Deepak Greenfield EGFR-AF MONGOLIAN >60 Normal >=60 [facility] Comment on above: Performed By: #### C BC #### [facility] [address] [address] [address] Deepak Greenfield EGFR-NON AF MONGOLIAN >60 Normal >=60 [facility] Comment on above: Performed By: #### C BC #### [facility] [address] [address] [address] Deepak Greenfield Glucose [Mass/Vol] 129 mg/dL Critically high 74-106 [facility] Comment on above: Performed By: #### C BC #### [facility] [address] [place] [address] Dr. Deepak Greenfield Potassium [Moles/Vol] 4.3 mmol/L Normal 3.5-5.1 [facility] Comment on above: Performed By: #### C BC #### [facility] [address] [address] [address] Deepak Greenfield Sodium [Moles/Vol] 142 mmol/L Normal 136-145 [facility] Comment on above: Performed By: #### C BC #### [facility] [address] [place] [address] Dr. Deepak Greenfield Urea nitrogen [Mass/Vol] 6.0 mg/dL Critically low 7.0-18.0 [facility] Comment on above: Performed By: #### C BC #### [facility] [address] [place] [address] Dr. Deepak Greenfield Urea nitrogen/Creatinine [Mass ratio] 8.6 mg/mg Normal [facility] Comment on above: Performed By: #### C BC #### [facility] [address] [place] [address] Dr. Deepak Greenfield AMMONIAon 07-30-2022 Ammonia (P) [Moles/Vol] 64 umol/L Critically high 11-32 [facility] Comment on above: Performed By: #### C BC #### [facility] [address] [place] [address] Dr. Deepak Greenfield CBC AUTO DIFFon 07-30-2022 BASO # 0.0 103/ul Normal 0.0-0.1 [facility] Comment on above: Performed By: #### I NFLUAB #### [facility] [address] [place] [address] Dr. Deepak Greenfield Basophils/100 WBC (Bld) 0.0 % Critically low 0.2-2.0 [facility] Comment on above: Performed By: #### I NFLUAB #### [facility] [address] [place] [address] Dr. Deepak Greenfield EO # 0.0 103/ul Normal 0.0-0.7 [facility] Comment on above: Performed By: #### I NFLUAB #### [facility] [address] [place] [address] Dr. Deepak Greenfield Eosinophils/100 WBC (Bld) 0.0 % Critically low 0.9-7.0 [facility] Comment on above: Performed By: #### I NFLUAB #### [facility] [address] [place] [address] Dr. Deepak Greenfield Erythrocyte distribution width (RBC) [Ratio] 13.1 % Normal 11.0-15.0 [facility] Comment on above: Performed By: #### I NFLUAB #### [facility] [address] [place] [address] Dr. Deepak Greenfield Hematocrit (Bld) [Volume fraction] 31.4 % Critically low 42.0-54.0 [facility] Comment on above: Performed By: #### I NFLUAB #### [facility] [address] [place] [address] Dr. Deepak Greenfield Hemoglobin (Bld) [Mass/Vol] 10.5 g/dL Critically low 14.0-18.0 [facility] Comment on above: Performed By: #### I NFLUAB #### [facility] [address] [place] [address] Dr. Deepak Greenfield IG # 0.01 10e3/ul Normal 0.00-0.03 [facility] Comment on above: Performed By: #### I NFLUAB #### [facility] [address] [place] [address] Dr. Deepak Greenfield IG % 0.2 % Normal 0.0-0.5 [facility] Comment on above: Performed By: #### I NFLUAB #### [facility] [address] [place] [address] Dr. Deepak Greenfield LYMPH # 1.5 103/ul Normal 1.2-3.8 [facility] Comment on above: Performed By: #### I NFLUAB #### [facility] [address] [place] [address] Dr. Deepak Greenfield Lymphocytes/100 WBC (Bld) 27.5 % Normal 20.5-60.0 [facility] Comment on above: Performed By: #### I NFLUAB #### [facility] [address] [place] [address] Dr. Deepak Greenfield MANUAL DIFF REQ NO Normal [facility] Comment on above: Performed By: #### I NFLUAB #### [facility] [address] [place] [address] Dr. Deepak Greenfield MCH (RBC) [Entitic mass] 32.4 pg Normal 25.9-34.0 [facility] Comment on above: Performed By: #### I NFLUAB #### [facility] [address] [place] [address] Dr. Deepak Greenfield MCHC (RBC) [Mass/Vol] 33.4 g/dL Normal 29.9-35.2 [facility] Comment on above: Performed By: #### I NFLUAB #### [facility] [address] [place] [address] Dr. Deepak Greenfield MCV (RBC) [Entitic vol] 96.9 fL Critically high 80.0-94.0 [facility] Comment on above: Performed By: #### I NFLUAB #### [facility] [address] [place] [address] Dr. Deepak Greenfield MONO # 0.2 103/ul Critically low 0.3-0.8 [facility] Comment on above: Performed By: #### I NFLUAB #### [facility] [address] [place] [address] Dr. Deepak Greenfield Monocytes/100 WBC (Bld) 2.9 % Normal 1.7-12.0 [facility] Comment on above: Performed By: #### I NFLUAB #### [facility] [address] [place] [address] Dr. Deepak Greenfield NEUT # 3.8 103/ul Normal 1.4-6.5 [facility] Comment on above: Performed By: #### I NFLUAB #### [facility] [address] [place] [address] Dr. Deepak Greenfield Neutrophils/100 WBC (Bld) 69.4 % Normal 43.0-75.0 [facility] Comment on above: Performed By: #### I NFLUAB #### [facility] [address] [place] [address] Dr. Deepak Greenfield Platelet mean volume (Bld) [Entitic vol] 9.4 fL Critically low 9.5-13.5 [facility] Comment on above: Performed By: #### I NFLUAB #### [facility] [address] [place] [address] Dr. Deepak Greenfield PLT 256 103/ul Normal 150-450 [facility] Comment on above: Performed By: #### I NFLUAB #### [facility] [address] [place] [address] Dr. Deepak Greenfield RBC 3.24 106/ul Critically low 4.70-6.10 [facility] Comment on above: Performed By: #### I NFLUAB #### [facility] [address] [place] [address] Dr. Deepak Greenfield WBC 5.5 103/ul Normal 4.0-11.0 [facility] Comment on above: Performed By: #### I NFLUAB #### [facility] [address] [place] [address] Dr. Deepak Greenfield Coding Summary.on 07-30-2022 Coding Summary. CD:[id number] W w+PGhlYWQ+TF4WUNCtH98 jfOJnvQ9aT9TZIUbPEqje OEPEOFuLNmZpquSoYS5iy XNjZXJu IC8+II3uOYEmBtmdxOApp 2C6dHO1O77rhe4nLYghbS F6UCJcXvNdezzsl7adjCd 6IDcuNmluOyBt LOCayZ64XPV8jI96Bp64s IBvtIUdd5auoUu4OzAbAG FlIFV7nWkpTXefy4CiBMY wD96lpZIqj5D6 VTWfiCgppLRiLuZjfVD6n T9uAUfvfmuck3jlfrnvPq q9el76uDXih2W0eFF7X7F fvhB6TOWybHLs FupftQBCfA5klwtfq3foy hccTkBlCLLeKJn9SSs9QP KioGdxJsSeBN97ENY6MQY apdAhL1ByUGAt nLqgTlF1x6L8Be9XW9GQW pkeL3XRQDTLCOemfRT+PC 23cu11E2EaXipnNgd0XPE yXDO2iWX7eH3k MTGpGChac0U9qSA0R7Lmn xCpky7ca2dcPHYxYTdbI5 7sbRMyl1I7VEMzyBK0TTU pmPcwAvXvpF09 Oyc+PXDupNfln9AeZighd 1lmg5ujzIn6ZbemTPWdwf YilStnVBK9s3OlUd0eARH zgMH4iWA5dX0h EcPlXdL0EBgjZ296PiAln BYvSbotC76nC8SapKU+PH XtGlr0TUVyaRwaFD1rL2B hZGRpbmctbGVm yPixMZ9gUITtpnymXAAwa Y9lZEJkE9b1JgUtJmJ2FR fmZ6MoDPQeayrtZk16pM1 pHiNmTtT7JInw F9VwgwO8EJGdkFWgREbmM RY6S40ox4O4LLEgTHCkYC G9zCI8gO0wjIycpuqpxSE mdDsgdmVydGlj NGonBSfuZ064VHMseVwiR kNvZGluZyBEYXRlOiAgMD QvMTMvMjAyMzwvdGQ+PHR oBGH6qVlsNRCu uDDcZQhjJh4vbEmftKkxH N4qJOKkwqdfLZWwqT5fRQ WusZTuaJfzFN4lKDDfntb pq006OwIrPFD3 HEKafJQrO9QyfJ3xEmDsD YPrLVPsZ8LktEIlQCbgT0 57FEenPfN6ZNYiltPqA2U sLWFsaWduOiB0 q8P6Ry8Xs4HllwbjC2Xld PWmLiRiEflnSWn7E2PxGd wvdHI+PE33ZTKrPO40PRy 3ZSD5uQpfUXch CAXnC9CuuL0rKgVqQYQvZ GRkOyc+PHRhYmxlIHdpZH RoPScxMDAlJyBzdHlsZT0 oZt5fETWyGDUt uPmcdEMkSvFgz9paEHGdU UduOF7xoMndT0ZebAL2QH Jtu1j7Dn02R86hM7FicSA +VOUubBU0mJH1 cS4nUbXrAaN7EHbsX696J wHqgZAgMlrqe5rus0xlnE v1YcZ3PDTkfoUlzFtbBDZ 9x7MhRf09Y57p IHdpZHRoPSIxNSUiIHZhb Bsava4wfU4rXk2+PGNvbC D5aMM2yT4pUvJkPgD9OHf wU049IzYvsRCd Pvzur7rrq1ddwNk7SwIgO CAgugZluWslPHW8g0QaAb 68M4BazBwau0QmUdx8xw3 6jICgz3U3dRR2 J0LfUSVouxturVIhyOilV B1tDXWdbgogSRLwdI6pQX PeD2u2UiKhBpV7EEunJ2Z qnpP9SGAhrKLp ZMHpwKTWnS4lefwtd0plu rwxGjJxZUMhWSt3DJm1XO ZryFotPzMrTUE5PfI5FLY 7oPPrjY9wqWjw jnkocM0lGup+PJL8iDCvg AALPY7jGfcljSN+PHRkIH I4sQolVFxfBMEkmH8vJKQ uP5q6SkHePnT1 MRlgL8ImzaI3TREluGTxR VLyeXICiC1lxijlt3cxne hgOkQaNZPwUEa9QNa2BVT saWduOiBsZWZ0 GyK4PHV6nKDzvC4jfSwip eudlC9aQbr+QmlydGggRG U1UFa5M8GpUkg8AWUnsMz mDT5arXReVAxf Cg1kzEwzwIxzYP0wAUOvh ucqc956AhHjc8cmAVCxcU PxBPivGAW4D84yh7C5YJD kLKKrSXK9oGT2 eG3ghFsapeovvNQpaMctk jDpeDxnTFkyDYpyB552YK EsqJndOiEmJLu4B9ElSnp 8KOBxuNxbDM2o nKRbTKnsDp9ufQlocOwpJ R5pNFAighegd846YjYln0 tdCCExjTCbDAvcCOI7H92 gl2M5QRLpPRTn AIV0mKF3rH3jtCdhlxbba GVmdDsgdmVydGljYWwtYW ycR923RGKsrQntFwOehQc 3V2MzIhr9RCMv kJdvTG3tcQCbHZjaSw6zd XzcvKagOZ9gXRYxvvmjq7 38OnRxp0dyCCQyqSBxXIy wGHA2E56gx1X7 DSHcBVEyWOX4dXI9zS1cw GlnbjogbGVmdDsgdmVydG puXNkrFTnwP771QLPznJr nPlBhdGllbnQg ELkqSHe3W3DvHecbbQM+P F27ERPqAH12aYWrrEMtb8 gdeJa2RoFfXVLcDFM7eWf nVMdfx2TcTMKr K39buMAeq3B6WQKhpBwji OOwEiJejRF6rP5cWGzhob aqd6ibffecSeiso9wvrv5 2vQ57J57xAZri ZHRoPSIzMCUiIHZhbGlnb g9zvR8fHj5+ZBScpUQ6nV Z0mJ0iWVKgQzG9GKhzI63 9InRvcCIvPjxj a6ynh5ghsAh8CoF7UXQsg zUbgHnzOIC9m4HlOi03H7 9sIHdpZHRoPSIyMCUiIHZ lgMgexz5ybB2y Ii8+VKFpeXH7aWI5kK1aE kVsUvF4CDsaV303CvNfuE VvWyngK77xA4LcgPE+PHR nGxa9QRUilRwi YI6qfPMsMGhrMx9vZMD3E uHnJdAcNImwR7FyPJSzxk cchtbfzHO6BXOfRFDauQ7 0Ov4efDdiGIRt iYDHjA4whqkxk2lpbhlqJ yFmOQHdBFg8NCc2QMNklT wtHsAyWKJ3UlG6BGX3sIZ oaL1xbLpcmsqx qN5fW8SxYNIwfnkeLl75o P5vFcDcIdB8KDlfTcc+U0 2QUJKNUJHMPBQLGcHMAH7 8IV67dQXcw1W9 mVK3F9DbHXZjnieankwrl WY3CICbZMZllX17oHKvOI qcYe1zt8J2e799CBEyKOT vqE71Jo3dwNyc SQCpwDPHpK1bkouuw6jpl aexKqQnHIKlREz5UPv7DE DcqKyhVpAmJFW2SfK1LJH 0aFUtmS2ptLip dirrkV4rOcw+MTAvMTYvM Sw5TMtahKE+NKBrIRJ6zQ cyJMwoZBPfnT1iDOGgO6w 5MdIsWpT7KSun B0FqGSRftehgFk10qU7iU xIlNtA9FQuxM8HfhaK6TC QmjKZfMWhfOUO5G45xn5K 2JCXvKPCgAZK0 zTY7lY0usOaeoxuuyACfl DsgdmVydGljYWwtYWxpZ2 46IHRvcDsnPjQyIFllYXJ qSV23ZM57mDWe e2L5kFH7L1ZyGEIumxrte keraOY8KHIzQGXdkQ26xF FjLJjsRd8bf5U0m076LSN aQDKbxN70Ep0e dHxeSRSkySAJaJ3wmpgtw 4ytfffwEwWnLYYjZSu4CY t6EJNwrLkuYqLdMIM4ZaM 3OVS6dPJicN1w nSrgjlujeU7tMax+TWFsZ TwvdGQ+EZVuBOR3tDjuJX itCIWpzK6wMBGvJ4q1QlZ qUwI6UHyrJ6Oe MENtgbkiVh79eY4bTkFyO uY9PPnbG5HtsiU0PHGyeU HjGTyfUMT9R29sn9M1DLH xEMWwGOY1bTH5 dL4axAkynxhbwNYrtZyob dAevIrpAOpsZZcpQ424LI OljDjpTg07xRGzlDviiaO 1H4JuXpnxlGF+ CA17MBCbDE65qJAopRJei 5gmkJr1UgMeKTQuNMB7vI ayKLopt7RxINUtO79qpIA su2P5DWAlyUqz wJFrRxDgkNV6fQ3jSXdin bvyu8tehglkCkpmn3ciob 28qQ52H05sFDydQYWpUGL zMCUiIHZhbGln sm1cpF9oGk6+SBFnqGS3o NO3lY7kLqDhWmM5DYgaW5 03BcWarPWgCjsjr0tvs9h sxLh4VrNgCQYy wpLizYskGMO5u8XjYb74Q 29sIHdpZHRoPSIyMCUiIH XnwDldcg9xwK9dFe9+PC9 oe7bbtl61fB08 dHI+GWGpEUM0lZwlSQoiT CGzuH0uAGmeFxF2PLWkJf HxbR17jTQaYNgnTw2jkJr edJagZI0xZXTk albcq493KpMam5inMFFwx NGmMZehECN4K68wt1M5ZJ CnXAKhYPB6bMU8xK0suHz nbjogbGVmdDsg kxNrxWfvAPnsNPscC524P BNtkKpcEqNmgTBuL3oxpd ZNDW9vDzfdbYR+PHRkIHN 0eWxlPSdwYWRk gP8tNAMdH7s6BeOoRwX2K YqrP2RswfI4HBGmiXYkRV NqlUXLuQ6lhnwqa6hsiem gIzAwMDAwMDt0 BNo4PKWpxNwqLkUlCUV8N bF2DME3xUFxxI1xlOixjn ougL1cLir+RklOOjwvdGQ +CGQwGYY2nIrh MCjiPUYvrB9wTUAvS2f0G dWcNaC2WKgcT5KcrdK7KC FxvJWtTZAirHKMeK6eapd qv8kqnlpnPpBw AROxOQc3WTr3NGEsuTtzN qLgNCJ7AvX4QJH9eZQbwQ 6ixSzkabmwkF4dEqh+TVJ OOjwvdGQ+PHRk RKN5lAyvARllJXKgqY6iN IDkB0h1WcUrVdD6IOzeJ6 LpysR7SOLtxCPxYVTdgHG UjT9pbomob4ih bykaSuPvOZBaOFt1GBf8Z PMztPsfZcVdFRO7XgC4ON R9zOGslB0abUyajhtcdU8 wOyc+JUU5NEO3 UC81ES99C0BkLvkxqEVaz +PHRhYmxlIHdpZHRoPS yvLZTeIrEqlMpgFQ6rGv6 yZGVyLWNvbGxh cHNlOiBj (more content not included)... Normal [facility] PROF CHEM 8 (BAS METB)on Anion gap [Moles/Vol] 8.3 mmol/L Normal [facility] Comment on above: Performed By: #### I NFLUAB #### [facility] [address] [place] [address] Dr. Deepak Greenfield Calcium [Mass/Vol] 8.5 mg/dL Normal 8.5-10.1 [facility] Comment on above: Performed By: #### I NFLUAB #### [facility] [address] [address] [address] Deepak Greenfield Chloride [Moles/Vol] 104 mmol/L Normal 98-107 [facility] Comment on above: Performed By: #### I NFLUAB #### [facility] [address] [place] [address] Dr. Deepak Greenfield CO2 [Moles/Vol] 30.0 mmol/L Normal 21.0-32.0 [facility] Comment on above: Performed By: #### I NFLUAB #### [facility] [address] [address] [address] Deepak Greenfield Creatinine [Mass/Vol] 0.46 mg/dL Critically low 0.70-1.30 [facility] Comment on above: Performed By: #### I NFLUAB #### [facility] [address] [place] [address] Dr. Deepak Greenfield EGFR-AF MONGOLIAN >60 Normal >=60 [facility] Comment on above: Performed By: #### I NFLUAB #### [facility] [address] [place] [address] Dr. Deepak Greenfield EGFR-NON AF MONGOLIAN >60 Normal >=60 [facility] Comment on above: Performed By: #### I NFLUAB #### [facility] [address] [place] [address] Dr. Deepak Greenfield Glucose [Mass/Vol] 152 mg/dL Critically high 74-106 [facility] Comment on above: Performed By: #### I NFLUAB #### [facility] [address] [place] [address] Dr. Deepak Greenfield Potassium [Moles/Vol] 4.3 mmol/L Normal 3.5-5.1 [facility] Comment on above: Performed By: #### I NFLUAB #### [facility] [address] [place] [address] Dr. Deepak Greenfield Sodium [Moles/Vol] 138 mmol/L Normal 136-145 [facility] Comment on above: Performed By: #### I NFLUAB #### [facility] [address] [place] [address] Dr. Deepak Greenfield Urea nitrogen [Mass/Vol] 9.0 mg/dL Normal 7.0-18.0 [facility] Comment on above: Performed By: #### I NFLUAB #### [facility] [address] [place] [address] Dr. Deepak Greenfield Urea nitrogen/Creatinine [Mass ratio] 19.6 mg/mg Normal [facility] Comment on above: Performed By: #### I NFLUAB #### [facility] [address] [place] [address] Dr. Deepak Greenfield AMMONIAon 07-29-2022 Ammonia (P) [Moles/Vol] 69 umol/L Critically high 11-32 [facility] Comment on above: Performed By: #### A MM #### [facility] [address] [place] [address] Dr. Deepak Greenfield CBC AUTO DIFFon 07-29-2022 BASO # 0.0 103/ul Normal 0.0-0.1 [facility] Comment on above: Performed By: #### M G, CMP #### [facility] [address] [place] [address] Dr. Deepak Greenfield Basophils/100 WBC (Bld) 0.2 % Normal 0.2-2.0 [facility] Comment on above: Performed By: #### M G, CMP #### [facility] [address] [place] [address] Dr. Deepak Greenfield EO # 0.0 103/ul Normal 0.0-0.7 [facility] Comment on above: Performed By: #### M G, CMP #### [facility] [address] [place] [address] Dr. Deepak Greenfield Eosinophils/100 WBC (Bld) 0.0 % Critically low 0.9-7.0 [facility] Comment on above: Performed By: #### M G, CMP #### [facility] [address] [place] [address] Dr. Deepak Greenfield Erythrocyte distribution width (RBC) [Ratio] 13.2 % Normal 11.0-15.0 [facility] Comment on above: Performed By: #### M G, CMP #### [facility] [address] [place] [address] Dr. Deepak Greenfield Hematocrit (Bld) [Volume fraction] 33.1 % Critically low 42.0-54.0 [facility] Comment on above: Performed By: #### M G, CMP #### [facility] [address] [place] [address] Dr. Deepak Greenfield Hemoglobin (Bld) [Mass/Vol] 10.8 g/dL Critically low 14.0-18.0 [facility] Comment on above: Performed By: #### M G, CMP #### [facility] [address] [place] [address] Dr. Deepak Greenfield IG # 0.04 10e3/ul Critically high 0.00-0.03 [facility] Comment on above: Performed By: #### M G, CMP #### [facility] [address] [place] [address] Dr. Deepak Greenfield IG % 0.5 % Normal 0.0-0.5 [facility] Comment on above: Performed By: #### M G, CMP #### [facility] [address] [address] [address] Deepak Greenfield LYMPH # 1.1 103/ul Critically low 1.2-3.8 [facility] Comment on above: Performed By: #### M G, CMP #### [facility] [address] [address] [address] Deepak Greenfield Lymphocytes/100 WBC (Bld) 13.6 % Critically low 20.5-60.0 [facility] Comment on above: Performed By: #### M G, CMP #### [facility] [address] [address] [address] Deepak Greenfield MANUAL DIFF REQ NO Normal [facility] Comment on above: Performed By: #### M G, CMP #### [facility] [address] [place] [address] Dr. Deepak Greenfield MCH (RBC) [Entitic mass] 32.2 pg Normal 25.9-34.0 [facility] Comment on above: Performed By: #### M G, CMP #### [facility] [address] [place] [address] Dr. Deepak Greenfield MCHC (RBC) [Mass/Vol] 32.6 g/dL Normal 29.9-35.2 [facility] Comment on above: Performed By: #### M G, CMP #### [facility] [address] [place] [address] Dr. Deepak Greenfield MCV (RBC) [Entitic vol] 98.8 fL Critically high 80.0-94.0 [facility] Comment on above: Performed By: #### M G, CMP #### [facility] [address] [address] [address] Deepak Greenfield MONO # 0.3 103/ul Normal 0.3-0.8 [facility] Comment on above: Performed By: #### M G, CMP #### [facility] [address] [place] [address] Dr. Deepak Greenfield Monocytes/100 WBC (Bld) 3.8 % Normal 1.7-12.0 [facility] Comment on above: Performed By: #### M G, CMP #### [facility] [address] [address] [address] Deepak Greenfield NEUT # 6.7 103/ul Critically high 1.4-6.5 [facility] Comment on above: Performed By: #### M G, CMP #### [facility] [address] [address] [address] Deepak Greenfield Neutrophils/100 WBC (Bld) 81.9 % Critically high 43.0-75.0 [facility] Comment on above: Performed By: #### M G, CMP #### [facility] [address] [address] [address] Deepak Greenfield Platelet mean volume (Bld) [Entitic vol] 9.6 fL Normal 9.5-13.5 [facility] Comment on above: Performed By: #### M G, CMP #### [facility] [address] [address] [address] Deepak Greenfield PLT 257 103/ul Normal 150-450 [facility] Comment on above: Performed By: #### M G, CMP #### [facility] [address] [place] [address] Dr. Deepak Greenfield RBC 3.35 106/ul Critically low 4.70-6.10 [facility] Comment on above: Performed By: #### M G, CMP #### [facility] [address] [address] [address] Deepak Greenfield WBC 8.2 103/ul Normal 4.0-11.0 [facility] Comment on above: Performed By: #### M G, CMP #### [facility] [address] [address] [address] Deepak Greenfield LACTATE/LACTIC ACIDon 2022 Lactate [Moles/Vol] 1.1 mmol/L Normal 0.4-2.0 [facility] Comment on above: Performed By: #### I NFLUAB #### [facility] [address] [place] [address] Dr. Deepak Greenfield PROF CHEM 8 (BAS METB)on Anion gap [Moles/Vol] 9.4 mmol/L Normal [facility] Comment on above: Performed By: #### I NFLUAB #### [facility] [address] [place] [address] Dr. Deepak Greenfield Calcium [Mass/Vol] 8.0 mg/dL Critically low 8.5-10.1 [facility] Comment on above: Performed By: #### I NFLUAB #### [facility] [address] [place] [address] Dr. Deepak Greenfield Chloride [Moles/Vol] 105 mmol/L Normal 98-107 [facility] Comment on above: Performed By: #### I NFLUAB #### [facility] [address] [place] [address] Dr. Deepak Greenfield CO2 [Moles/Vol] 30.7 mmol/L Normal 21.0-32.0 [facility] Comment on above: Performed By: #### I NFLUAB #### [facility] [address] [place] [address] Dr. Deepak Greenfield Creatinine [Mass/Vol] 0.66 mg/dL Critically low 0.70-1.30 [facility] Comment on above: Performed By: #### I NFLUAB #### [facility] [address] [place] [address] Dr. Deepak Greenfield EGFR-AF MONGOLIAN >60 Normal >=60 [facility] Comment on above: Performed By: #### I NFLUAB #### [facility] [address] [place] [address] Dr. Deepak Greenfield EGFR-NON AF MONGOLIAN >60 Normal >=60 [facility] Comment on above: Performed By: #### I NFLUAB #### [facility] [address] [place] [address] Dr. Deepak Greenfield Glucose [Mass/Vol] 177 mg/dL Critically high 74-106 [facility] Comment on above: Performed By: #### I NFLUAB #### [facility] [address] [place] [address] Dr. Deepak Greenfield Potassium [Moles/Vol] 4.1 mmol/L Normal 3.5-5.1 [facility] Comment on above: Performed By: #### I NFLUAB #### [facility] [address] [place] [address] Dr. Deepak Greenfield Sodium [Moles/Vol] 141 mmol/L Normal 136-145 [facility] Comment on above: Performed By: #### I NFLUAB #### [facility] [address] [place] [address] Dr. Deepak Greenfield Urea nitrogen [Mass/Vol] 9.0 mg/dL Normal 7.0-18.0 [facility] Comment on above: Performed By: #### I NFLUAB #### [facility] [facility] [address] [place] [address] Dr. Deepak Greenfield Urea nitrogen/Creatinine [Mass ratio] 13.6 mg/mg Normal [facility] Comment on above: Performed By: #### I NFLUAB #### [facility] [address] [place] [address] Dr. Deepak Greenfield AMMONIAon 07-28-2022 Ammonia (P) [Moles/Vol] 68 umol/L Critically high 11-32 [facility] Comment on above: Performed By: #### B MP #### [facility] [address] [place] [address] Dr. Deepak Greenfield CBC AUTO DIFFon 07-28-2022 BASO # 0.0 103/ul Normal 0.0-0.1 [facility] Comment on above: Performed By: #### C BC #### [facility] [address] [place] [address] Dr. Deepak Greenfield Basophils/100 WBC (Bld) 0.3 % Normal 0.2-2.0 [facility] Comment on above: Performed By: #### C BC #### [facility] [address] [place] [address] Dr. Deepak Greenfield EO # 0.0 103/ul Normal 0.0-0.7 [facility] Comment on above: Performed By: #### C BC #### [facility] [address] [place] [address] Dr. Deepak Greenfield Eosinophils/100 WBC (Bld) 0.0 % Critically low 0.9-7.0 [facility] Comment on above: Performed By: #### C BC #### [facility] [address] [place] [address] Dr. Deepak Greenfield Erythrocyte distribution width (RBC) [Ratio] 13.3 % Normal 11.0-15.0 [facility] Comment on above: Performed By: #### C BC #### [facility] [address] [place] [address] Dr. Deepak Greenfield Hematocrit (Bld) [Volume fraction] 37.0 % Critically low 42.0-54.0 [facility] Comment on above: Performed By: #### C BC #### [facility] [address] [place] [address] Dr. Deepak Greenfield Hemoglobin (Bld) [Mass/Vol] 12.3 g/dL Critically low 14.0-18.0 [facility] Comment on above: Performed By: #### C BC #### [facility] [address] [place] [address] Dr. Deepak Greenfield IG # 0.06 10e3/ul Critically high 0.00-0.03 [facility] Comment on above: Performed By: #### C BC #### [facility] [address] [place] [address] Dr. Deepak Greenfield IG % 0.5 % Normal 0.0-0.5 [facility] Comment on above: Performed By: #### C BC #### [facility] [address] [place] [address] Dr. Deepak Greenfield LYMPH # 2.9 103/ul Normal 1.2-3.8 [facility] Comment on above: Performed By: #### C BC #### [facility] [address] [place] [address] Dr. Deepak Greenfield Lymphocytes/100 WBC (Bld) 23.5 % Normal 20.5-60.0 [facility] Comment on above: Performed By: #### C BC #### [facility] [address] [place] [address] Dr. Deepak Greenfield MANUAL DIFF REQ NO Normal [facility] Comment on above: Performed By: #### C BC #### [facility] [address] [place] [address] Dr. Deepak Greenfield MCH (RBC) [Entitic mass] 32.4 pg Normal 25.9-34.0 [facility] Comment on above: Performed By: #### C BC #### [facility] [address] [place] [address] Dr. Deepak Greenfield MCHC (RBC) [Mass/Vol] 33.2 g/dL Normal 29.9-35.2 [facility] Comment on above: Performed By: #### C BC #### [facility] [address] [place] [address] Dr. Deepak Greenfield MCV (RBC) [Entitic vol] 97.4 fL Critically high 80.0-94.0 [facility] Comment on above: Performed By: #### C BC #### [facility] [address] [place] [address] Dr. Deepak Greenfield MONO # 1.0 103/ul Critically high 0.3-0.8 [facility] Comment on above: Performed By: #### C BC #### [facility] [address] [place] [address] Dr. Deepak Greenfield Monocytes/100 WBC (Bld) 8.0 % Normal 1.7-12.0 [facility] Comment on above: Performed By: #### C BC #### [facility] [address] [place] [address] Dr. Deepak Greenfield NEUT # 8.3 103/ul Critically high 1.4-6.5 [facility] Comment on above: Performed By: #### C BC #### [facility] [address] [place] [address] Dr. Deepak Greenfield Neutrophils/100 WBC (Bld) 67.7 % Normal 43.0-75.0 [facility] Comment on above: Performed By: #### C BC #### [facility] [address] [place] [address] Dr. Deepak Greenfield Platelet mean volume (Bld) [Entitic vol] 9.7 fL Normal 9.5-13.5 [facility] Comment on above: Performed By: #### C BC #### [facility] [address] [place] [address] Dr. Deepak Greenfield PLT 325 103/ul Normal 150-450 [facility] Comment on above: Performed By: #### C BC #### [facility] [address] [place] [address] Dr. Deepak Greenfield RBC 3.80 106/ul Critically low 4.70-6.10 [facility] Comment on above: Performed By: #### C BC #### [facility] [address] [place] [address] Dr. Deepak Greenfield WBC 12.2 103/ul Critically high 4.0-11.0 [facility] Comment on above: Performed By: #### C BC #### [facility] [address] [place] [address] Dr. Deepak Greenfield CULTURE BLOODon 07-28-2022 Microscopic examination of blood, culture Culture Observations: NO GROWTH AT 5 DAYS. Normal [facility] Comment on above: Performed By: #### B LDCX2 #### [facility] [address] [place] [address] Dr. Deepak Greenfield Microscopic examination of blood, culture Culture Observations: NO GROWTH AT 5 DAYS. Normal [facility] Comment on above: Performed By: #### C BC #### [facility] [address] [place] [address] Dr. Deepak Greenfield LACTATE/LACTIC ACIDon 2022 Lactate [Moles/Vol] 2.5 mmol/L Critically high 0.4-2.0 [facility] Comment on above: Performed By: #### C VDTBH #### [facility] [address] [place] [address] Dr. Deepak Greenfield PROF 14(COMP METB)on 023 Albumin [Mass/Vol] 3.1 g/dL Critically low 3.4-5.0 [facility] Comment on above: Performed By: #### C BC #### [facility] [address] [place] [address] Dr. Deepak Greenfield Albumin/Globulin [Mass ratio] 0.7 {ratio} Normal [facility] Comment on above: Performed By: #### C BC #### [facility] [address] [address] [address] Deepak Greenfield ALP [Catalytic activity/Vol] 51 U/L Normal 46-116 [facility] Comment on above: Performed By: #### C BC #### [facility] [address] [place] [address] Dr. Deepak Greenfield ALT [Catalytic activity/Vol] 106 U/L Critically high 16-63 [facility] Comment on above: Performed By: #### C BC #### [facility] [address] [place] [address] Dr. Deepak Greenfield Anion gap [Moles/Vol] 14.2 mmol/L Normal [facility] Comment on above: Performed By: #### C BC #### [facility] [address] [place] [address] Dr. Deepak Greenfield AST [Catalytic activity/Vol] 81 U/L Critically high 15-37 [facility] Comment on above: Performed By: #### C BC #### [facility] [address] [place] [address] Dr. Deepak Greenfield Bilirubin [Mass/Vol] 0.4 mg/dL Normal 0.2-1.0 [facility] Comment on above: Performed By: #### C BC #### [facility] [address] [place] [address] Dr. Deepak Greenfield Calcium [Mass/Vol] 8.9 mg/dL Normal 8.5-10.1 [facility] Comment on above: Performed By: #### C BC #### [facility] [address] [place] [address] Dr. Deepak Greenfield Chloride [Moles/Vol] 105 mmol/L Normal 98-107 [facility] Comment on above: Performed By: #### C BC #### [facility] [address] [place] [address] Dr. Deepak Greenfield CO2 [Moles/Vol] 27.9 mmol/L Normal 21.0-32.0 [facility] Comment on above: Performed By: #### C BC #### [facility] [address] [place] [address] Dr. Deepak Greenfield Creatinine [Mass/Vol] 0.77 mg/dL Normal 0.70-1.30 [facility] Comment on above: Performed By: #### C BC #### [facility] [address] [place] [address] Dr. Deepak Greenfield EGFR-AF MONGOLIAN >60 Normal >=60 [facility] Comment on above: Performed By: #### C BC #### [facility] [address] [place] [address] Dr. Deepak Greenfield EGFR-NON AF MONGOLIAN >60 Normal >=60 [facility] Comment on above: Performed By: #### C BC #### [facility] [address] [place] [address] Dr. Deepak Greenfield Globulin (S) [Mass/Vol] 4.3 g/dL Normal [facility] Comment on above: Performed By: #### C BC #### [facility] [address] [place] [address] Dr. Deepak Greenfield Glucose [Mass/Vol] 162 mg/dL Critically high 74-106 [facility] Comment on above: Performed By: #### C BC #### [facility] [address] [place] [address] Dr. Deepak Greenfield Potassium [Moles/Vol] 4.1 mmol/L Normal 3.5-5.1 [facility] Comment on above: Performed By: #### C BC #### [facility] [address] [place] [address] Dr. Deepak Greenfield Protein [Mass/Vol] 7.4 g/dL Normal 6.4-8.2 [facility] Comment on above: Performed By: #### C BC #### [facility] [address] [place] [address] Dr. Deepak Greenfield Sodium [Moles/Vol] 143 mmol/L Normal 136-145 [facility] Comment on above: Performed By: #### C BC #### [facility] [address] [place] [address] Dr. Deepak Greenfield Urea nitrogen [Mass/Vol] 12.0 mg/dL Normal 7.0-18.0 [facility] Comment on above: Performed By: #### C BC #### [facility] [address] [place] [address] Dr. Deepak Greenfield Urea nitrogen/Creatinine [Mass ratio] 15.6 mg/mg Normal [facility] Comment on above: Performed By: #### C BC #### [facility] [address] [place] [address] Dr. Deepak Greenfield RESPIRATORY PANEL PLUSon Adenovirus Not detected Normal NOT DETECTED [facility] Comment on above: Performed By: #### B MP #### [facility] [address] [place] [address] Dr. Deepak Ocampo Parapertusis Not detected Normal NOT DETECTED [facility] Comment on above: Performed By: #### B MP #### [facility] [address] [place] [address] Dr. Deepak Ocampo Pertussis Not detected Normal NOT DETECTED [facility] Comment on above: Performed By: #### B MP #### [facility] [address] [place] [address] Dr. Deepak Greenfield Chlamydia Pneumoniae Not detected Normal NOT DETECTED [facility] Comment on above: Performed By: #### B MP #### [facility] [address] [place] [address] Dr. Deepak Greenfield Coronavirus 229E Not detected Normal NOT DETECTED [facility] Comment on above: Performed By: #### B MP #### [facility] [address] [place] [address] Dr. Deepak Greenfield Coronavirus HKU1 Not detected Normal NOT DETECTED [facility] Comment on above: Performed By: #### B MP #### [facility] [address] [place] [address] Dr. Deepak Greenfield Coronavirus NL63 Not detected Normal NOT DETECTED [facility] Comment on above: Performed By: #### B MP #### [facility] [address] [address] [address] Deepak Greenfield Coronavirus OC43 Not detected Normal NOT DETECTED [facility] Comment on above: Performed By: #### B MP #### [facility] [address] [address] [address] Deepak Greenfield Influenza A H1 Not detected Normal NOT DETECTED [facility] Comment on above: Performed By: #### B MP #### [facility] [address] [address] [address] Deepak Greenfield Influenza A H1 2009 Not detected Normal NOT DETECTED [facility] Comment on above: Performed By: #### B MP #### [facility] [address] [address] [address] Deepak Greenfield Influenza A H3 Not detected Normal NOT DETECTED [facility] Comment on above: Performed By: #### B MP #### [facility] [address] [address] [address] Deepak Greenfield Influenza B Not detected Normal NOT DETECTED [facility] Comment on above: Performed By: #### B MP #### [facility] [address] [address] [address] Deepak Greenfield Metapneumovirus Detected Abnormal NOT DETECTED [facility] Comment on above: Performed By: #### B MP #### [facility] [address] [address] [address] Deepak Greenfield Mycoplas. Pneumoniae Not detected Normal NOT DETECTED [facility] Comment on above: Performed By: #### B MP #### [facility] [address] [address] [address] Deepak Greenfield Parainfluenza 1 Not detected Normal NOT DETECTED [facility] Comment on above: Performed By: #### B MP #### [facility] [address] [address] [address] Deepak Greenfield Parainfluenza 2 Not detected Normal NOT DETECTED [facility] Comment on above: Performed By: #### B MP #### [facility] [address] [address] [address] Deepak Greenfield Parainfluenza 3 Not detected Normal NOT DETECTED [facility] Comment on above: Performed By: #### B MP #### [facility] [address] [place] [address] Dr. Deepak Greenfield Parainfluenza 4 Not detected Normal NOT DETECTED [facility] Comment on above: Performed By: #### B MP #### [facility] [address] [address] [address] Deepak Greenfield Rhino/Enterovirus Not detected Normal NOT DETECTED [facility] Comment on above: Performed By: #### B MP #### [facility] [address] [place] [address] Dr. Deepak Greenfield RP2 Header 1 RESPIRATORY PANEL: VIRUSES Normal [facility] Comment on above: Performed By: #### B MP #### [facility] [address] [place] [address] Dr. Deepak Greenfield RP2 Header 2 RESPIRATORY PANEL: BACTERIA Normal [facility] Comment on above: Performed By: #### B MP #### [facility] [address] [place] [address] Dr. Deepak Greenfield RSV Not detected Normal NOT DETECTED [facility] Comment on above: Performed By: #### B MP #### [facility] [address] [place] [address] Dr. Deepak Greenfield SARS-CoV-2 (COVID-19) RNA CINDY+probe Ql (Unsp spec) Not detected Normal NOT DETECTED [facility] Comment on above: Performed By: #### B MP #### [facility] [address] [place] [address] Dr. Deepak Greenfield XR CHEST 1 Von [...] Akua PEREZ Date: 2022-07-28 20:23 Normal [facility] AMMONIAon 07-27-2022 Ammonia (P) [Moles/Vol] 76 umol/L Critically high 11-32 [facility] Comment on above: Performed By: #### M G, CMP #### [facility] [address] [place] [address] Dr. Deepak Greenfield CBC W MANUAL DIFFon 07-28-19 ATYPICAL LYMPH # Normal [facility] Comment on above: Performed By: #### M G, CMP #### [facility] [address] [place] [address] Dr. Deepak Greenfield ATYPICAL LYMPH % Normal [facility] Comment on above: Performed By: #### M G, CMP #### [facility] [address] [place] [address] Dr. Deepak Greenfield BAND # 0.4 103/ul Critically high 0.0-0.3 [facility] Comment on above: Performed By: #### M G, CMP #### [facility] [address] [place] [address] Dr. Deepak Greenfield BAND % 4 % Normal 0-5 [facility] Comment on above: Performed By: #### M G, CMP #### [facility] [address] [place] [address] Dr. Deepak Greenfield BASOM # 0.00 103/ul Normal 0.00-0.10 [facility] Comment on above: Performed By: #### M G, CMP #### [facility] [address] [place] [address] Dr. Deepak Greenfield BASOM % 0.0 % Critically low 0.2-2.0 [facility] Comment on above: Performed By: #### M G, CMP #### [facility] [address] [place] [address] Dr. Deepak Greenfield BLAST # Normal [facility] Comment on above: Performed By: #### M G, CMP #### [facility] [address] [place] [address] Dr. Deepak Greenfield BLAST % Normal [facility] Comment on above: Performed By: #### M G, CMP #### [facility] [address] [address] [address] Deepak Greenfield CORRECTED WBC Normal 4.0-11.0 [facility] Comment on above: Performed By: #### M G, CMP #### [facility] [address] [place] [address] Dr. Deepak Greenfield EOS # 0.00 103/ul Normal 0.00-0.70 [facility] Comment on above: Performed By: #### M G, CMP #### [facility] [address] [place] [address] Dr. Deepak Greenfield EOS% 0.0 % Critically low 0.9-7.0 [facility] Comment on above: Performed By: #### M G, CMP #### [facility] [address] [place] [address] Dr. Deepak Greenfield HCT 29.6 % Critically low 42.0-54.0 [facility] Comment on above: Performed By: #### M G, CMP #### [facility] [address] [place] [address] Dr. Deepak Greenfield HGB 10.4 g/dl Critically low 14.0-18.0 [facility] Comment on above: Performed By: #### M G, CMP #### [facility] [address] [place] [address] Dr. Deepak Greenfield LYMPHM # 0.71 103/ul Critically low 1.20-3.80 [facility] Comment on above: Performed By: #### M G, CMP #### [facility] [address] [place] [address] Dr. Deepak Greenfield LYMPHM% 8.0 % Critically low 20.5-60.0 [facility] Comment on above: Performed By: #### M G, CMP #### [facility] [address] [place] [address] Dr. Deepak Greenfield MCH 33.0 pg Normal 25.9-34.0 [facility] Comment on above: Performed By: #### M G, CMP #### [facility] [address] [place] [address] Dr. Deepak Greenfield MCHC 35.1 g/dl Normal 29.9-35.2 [facility] Comment on above: Performed By: #### M G, CMP #### [facility] [address] [place] [address] Dr. Deepak Greenfield MCV 94.0 fL Normal 80.0-94.0 [facility] Comment on above: Performed By: #### M G, CMP #### [facility] [address] [place] [address] Dr. Deepak Greenfield METAMYELOCYTE # Normal [facility] Comment on above: Performed By: #### M G, CMP #### [facility] [address] [place] [address] Dr. Deepak Greenfield METAMYELOCYTE % Normal [facility] Comment on above: Performed By: #### M G, CMP #### [facility] [address] [place] [address] Dr. Deepak Greenfield MONOM# 0.71 103/ul Normal 0.30-0.80 [facility] Comment on above: Performed By: #### M G, CMP #### [facility] [address] [place] [address] Dr. Deepak Greenfield MONOM% 8.0 % Normal 1.7-12.0 [facility] Comment on above: Performed By: #### M G, CMP #### [facility] [address] [place] [address] Dr. Deepak Greenfield MPV 9.6 fL Normal 9.5-13.5 [facility] Comment on above: Performed By: #### M G, CMP #### [facility] [address] [address] [address] Deepak Greenfield MYELOCYTE # Normal [facility] Comment on above: Performed By: #### M G, CMP #### [facility] [address] [address] [address] Deepak Greenfield MYELOCYTE % Normal [facility] Comment on above: Performed By: #### M G, CMP #### [facility] [address] [address] [address] Deepak Greenfield NRBC Normal [facility] Comment on above: Performed By: #### M G, CMP #### [facility] [address] [address] [address] Deepak Greenfield PLT 267 103/ul Normal 150-450 [facility] Comment on above: Performed By: #### M G, CMP #### [facility] [address] [place] [address] Dr. Deepak Greenfield RBC 3.15 106/ul Critically low 4.70-6.10 [facility] Comment on above: Performed By: #### M G, CMP #### [facility] [address] [place] [address] Dr. Deepak Greenfield RDW 12.9 % Normal 11.0-15.0 [facility] Comment on above: Performed By: #### M G, CMP #### [facility] [address] [place] [address] Dr. Deepak Greenfield SEG # 7.12 103/ul Critically high 1.40-6.50 [facility] Comment on above: Performed By: #### M G, CMP #### [facility] [address] [place] [address] Dr. Deepak Greenfield SEG % 80.0 % Critically high 43.0-75.0 [facility] Comment on above: Performed By: #### M G, CMP #### [facility] [address] [place] [address] Dr. Deepak Greenfield WBC 8.9 103/ul Normal 4.0-11.0 [facility] Comment on above: Performed By: #### M G, CMP #### [facility] [address] [address] [address] Deepak Greenfield PROF CHEM 8 (BAS METB)on Anion gap [Moles/Vol] 12.4 mmol/L Normal [facility] Comment on above: Performed By: #### C BC #### [facility] [address] [address] [address] Deepak Greenfield Calcium [Mass/Vol] 8.2 mg/dL Critically low 8.5-10.1 [facility] Comment on above: Performed By: #### C BC #### [facility] [address] [place] [address] Dr. Deepak Greenfield Chloride [Moles/Vol] 101 mmol/L Normal 98-107 [facility] Comment on above: Performed By: #### C BC #### [facility] [address] [place] [address] Dr. Deepak Greenfield CO2 [Moles/Vol] 25.0 mmol/L Normal 21.0-32.0 [facility] Comment on above: Performed By: #### C BC #### [facility] [address] [place] [address] Dr. Deepak Greenfield Creatinine [Mass/Vol] 0.53 mg/dL Critically low 0.70-1.30 [facility] Comment on above: Performed By: #### C BC #### [facility] [address] [place] [address] Dr. Deepak Greenfield EGFR-AF MONGOLIAN >60 Normal >=60 [facility] Comment on above: Performed By: #### C BC #### [facility] [address] [place] [address] Dr. Deepak Greenfield EGFR-NON AF MONGOLIAN >60 Normal >=60 [facility] Comment on above: Performed By: #### C BC #### [facility] [address] [place] [address] Dr. Deepak Greenfield Glucose [Mass/Vol] 161 mg/dL Critically high 74-106 [facility] Comment on above: Performed By: #### C BC #### [facility] [address] [place] [address] Dr. Deepak Greenfield Potassium [Moles/Vol] 4.4 mmol/L Normal 3.5-5.1 [facility] Comment on above: Performed By: #### C BC #### [facility] [address] [address] [address] Deepak Greenfield Sodium [Moles/Vol] 134 mmol/L Critically low 136-145 [facility] Comment on above: Performed By: #### C BC #### [facility] [address] [address] [address] Deepak Greenfield Urea nitrogen [Mass/Vol] 13.0 mg/dL Normal 7.0-18.0 [facility] Comment on above: Performed By: #### C BC #### [facility] [address] [place] [address] Dr. Deepak Greenfield Urea nitrogen/Creatinine [Mass ratio] 24.5 mg/mg Normal [facility] Comment on above: Performed By: #### C BC #### [facility] [address] [place] [address] Dr. Deepak Greenfield AMMONIAon 07-26-2022 Ammonia (P) [Moles/Vol] 56 umol/L Critically high 11-32 [facility] Comment on above: Performed By: #### M G, CMP #### [facility] [address] [place] [address] Dr. Deepak Greenfield CARDIAC BEATRIS ADMITon 023 CK [Catalytic activity/Vol] 83 U/L Normal 39-308 [facility] Comment on above: Performed By: #### B MP #### [facility] [address] [place] [address] Dr. Deepak Greenfield CK.MB [Mass/Vol] 0.86 ng/mL Normal <=3.60 [facility] Comment on above: Performed By: #### B MP #### [facility] [address] [place] [address] Dr. Deepak Greenfield HSTROP 7.4 pg/mL Normal 4.0-76.1 [facility] Comment on above: Result Comment: CUT- OFF POINTS HAVE BEEN ESTABLISHED BASED ON THE FOURTH UNIVERSAL DEFINITIONS OF MYOCARDIAL INFARCTION. THE UPPER REFERENCE LIMIT (URL) OF TROPONIN, DEFINED THE 99TH PERCENTILE OF cTnI DISTRIBUTION IN A REFERENCE POPULATION, HAS BEEN CONFIRMED THE DECISION THRESHOLD FOR CT DIAGNOSIS. Performed By: #### B MP #### [facility] [address] [place] [address] Dr. Deepak Greenfield VALE 46 ng/mL Normal 16-96 [facility] Comment on above: Performed By: #### B MP #### [facility] [address] [place] [address] Dr. Deepak Greenfield CBC AUTO DIFFon 07-26-2022 BASO # 0.1 103/ul Normal 0.0-0.1 [facility] Comment on above: Performed By: #### M G, CMP #### [facility] [address] [place] [address] Dr. Deepak Greenfield Basophils/100 WBC (Bld) 0.5 % Normal 0.2-2.0 [facility] Comment on above: Performed By: #### M G, CMP #### [facility] [address] [place] [address] Dr. Deepak Greenfield EO # 0.2 103/ul Normal 0.0-0.7 [facility] Comment on above: Performed By: #### M G, CMP #### [facility] [address] [place] [address] Dr. Deepak Greenfield Eosinophils/100 WBC (Bld) 2.1 % Normal 0.9-7.0 [facility] Comment on above: Performed By: #### M G, CMP #### [facility] [address] [place] [address] Dr. Deepak Greenfield Erythrocyte distribution width (RBC) [Ratio] 13.2 % Normal 11.0-15.0 [facility] Comment on above: Performed By: #### M G, CMP #### [facility] [address] [place] [address] Dr. Deepak Greenfield Hematocrit (Bld) [Volume fraction] 36.7 % Critically low 42.0-54.0 [facility] Comment on above: Performed By: #### M G, CMP #### [facility] [address] [place] [address] Dr. Deepak Greenfield Hemoglobin (Bld) [Mass/Vol] 12.4 g/dL Critically low 14.0-18.0 [facility] Comment on above: Performed By: #### M G, CMP #### [facility] [address] [place] [address] Dr. Deepak Greenfield IG # 0.04 10e3/ul Critically high 0.00-0.03 [facility] Comment on above: Performed By: #### M G, CMP #### [facility] [address] [place] [address] Dr. Deepak Greenfield IG % 0.4 % Normal 0.0-0.5 [facility] Comment on above: Performed By: #### M G, CMP #### [facility] [address] [place] [address] Dr. Deepak Greenfield LYMPH # 1.7 103/ul Normal 1.2-3.8 [facility] Comment on above: Performed By: #### M G, CMP #### [facility] [address] [place] [address] Dr. Deepak Greenfield Lymphocytes/100 WBC (Bld) 15.6 % Critically low 20.5-60.0 [facility] Comment on above: Performed By: #### M G, CMP #### [facility] [address] [place] [address] Dr. Deepak Greenfield MANUAL DIFF REQ NO Normal [facility] Comment on above: Performed By: #### M G, CMP #### [facility] [address] [place] [address] Dr. Deepak Greenfield MCH (RBC) [Entitic mass] 32.5 pg Normal 25.9-34.0 [facility] Comment on above: Performed By: #### M G, CMP #### [facility] [address] [place] [address] Dr. Deepak Greenfield MCHC (RBC) [Mass/Vol] 33.8 g/dL Normal 29.9-35.2 [facility] Comment on above: Performed By: #### M G, CMP #### [facility] [address] [place] [address] Dr. Deepak Greenfield MCV (RBC) [Entitic vol] 96.3 fL Critically high 80.0-94.0 [facility] Comment on above: Performed By: #### M G, CMP #### [facility] [address] [place] [address] Dr. Deepak Greenfield MONO # 1.4 103/ul Critically high 0.3-0.8 [facility] Comment on above: Performed By: #### M G, CMP #### [facility] [address] [place] [address] Dr. Deepak Greenfield Monocytes/100 WBC (Bld) 12.8 % Critically high 1.7-12.0 [facility] Comment on above: Performed By: #### M G, CMP #### [facility] [address] [place] [address] Dr. Deepak Greenfield NEUT # 7.4 103/ul Critically high 1.4-6.5 [facility] Comment on above: Performed By: #### M G, CMP #### [facility] [address] [place] [address] Dr. Deepak Greenfield Neutrophils/100 WBC (Bld) 68.6 % Normal 43.0-75.0 [facility] Comment on above: Performed By: #### M G, CMP #### [facility] [address] [place] [address] Dr. Deepak Greenfield Platelet mean volume (Bld) [Entitic vol] 9.5 fL Normal 9.5-13.5 [facility] Comment on above: Performed By: #### M G, CMP #### [facility] [address] [place] [address] Dr. Deepak Greenfield PLT 314 103/ul Normal 150-450 [facility] Comment on above: Performed By: #### M G, CMP #### [facility] [address] [place] [address] Dr. Deepak Greenfield RBC 3.81 106/ul Critically low 4.70-6.10 [facility] Comment on above: Performed By: #### M G, CMP #### [facility] [address] [address] [address] Deepak Greenfield WBC 10.8 103/ul Normal 4.0-11.0 [facility] Comment on above: Performed By: #### M G, CMP #### [facility] [address] [address] [address] Deepak Greenfield Covid-19 PCR ([facility])on SARS-CoV-2 (COVID-19) RNA CINDY+probe Ql (Unsp spec) Not detected Normal NOT DETECTED [facility] Comment on above: Result Comment: When diagnostic [...] for this test is supported by the [place] of Health and Human Service's declaration that [...] used). Performed By: #### C VDTBH #### [facility] [address] [place] [address] Dr. Deepak Greenfield INFLUENZA A AND B AGon 07-26 INFLUANEGH SEE BELOW Normal [facility] Comment on above: Result Comment: Nega tive for Flu A protein angiten. Infection due to Flu A cannot be ruled out. Flu A angiten in the sample may be below the detection limit of the test. Performed By: #### I NFLUAB #### [facility] [address] [address] [address] Deepak Greenfield INFLUBNEGH SEE BELOW Normal [facility] Comment on above: Result Comment: Nega tive for Flu B protein antigen. Infection due to Flu B cannot be ruled out. Flu B antigen in the sample may be below the detection limit of the test. Performed By: #### I NFLUAB #### [facility] [address] [place] [address] Dr. Deepak Greenfield INFLUENZA A AG Negative Normal NEGATIVE SEE COMMENT [facility] Comment on above: Performed By: #### I NFLUAB #### [facility] [address] [place] [address] Dr. Deepak Greenfield INFLUENZA B AG Negative Normal NEGATIVE SEE COMMENT [facility] Comment on above: Performed By: #### I NFLUAB #### [facility] [address] [place] [address] Dr. Deepak Greenfield LACTATE/LACTIC ACIDon 2022 Lactate [Moles/Vol] 1.2 mmol/L Normal 0.4-2.0 [facility] Comment on above: Performed By: #### M G, CMP #### [facility] [address] [place] [address] Dr. Deepak Greenfield PROF 14(COMP METB)on 023 Albumin [Mass/Vol] 3.3 g/dL Critically low 3.4-5.0 [facility] Comment on above: Performed By: #### B MP #### [facility] [address] [place] [address] Dr. Deepak Greenfield Albumin/Globulin [Mass ratio] 0.8 {ratio} Normal [facility] Comment on above: Performed By: #### B MP #### [facility] [address] [place] [address] Dr. Deepak Greenfield ALP [Catalytic activity/Vol] 45 U/L Critically low 46-116 [facility] Comment on above: Performed By: #### B MP #### [facility] [address] [place] [address] Dr. Deepak Greenfield ALT [Catalytic activity/Vol] 114 U/L Critically high 16-63 [facility] Comment on above: Performed By: #### B MP #### [facility] [address] [place] [address] Dr. Deepak Greenfield Anion gap [Moles/Vol] 14.5 mmol/L Normal [facility] Comment on above: Performed By: #### B MP #### [facility] [address] [address] [address] Deepak Greenfield AST [Catalytic activity/Vol] 71 U/L Critically high 15-37 [facility] Comment on above: Performed By: #### B MP #### [facility] [address] [address] [address] Deepak Greenfield Bilirubin [Mass/Vol] 0.7 mg/dL Normal 0.2-1.0 [facility] Comment on above: Performed By: #### B MP #### [facility] [address] [address] [address] Deepak Greenfield Calcium [Mass/Vol] 9.1 mg/dL Normal 8.5-10.1 [facility] Comment on above: Performed By: #### B MP #### [facility] [address] [address] [address] Deepak Greenfield Chloride [Moles/Vol] 98 mmol/L Normal 98-107 [facility] Comment on above: Performed By: #### B MP #### [facility] [address] [address] [address] Deepak Greenfield CO2 [Moles/Vol] 27.4 mmol/L Normal 21.0-32.0 [facility] Comment on above: Performed By: #### B MP #### [facility] [address] [address] [address] Deepak Greenfield Creatinine [Mass/Vol] 0.65 mg/dL Critically low 0.70-1.30 [facility] Comment on above: Performed By: #### B MP #### [facility] [address] [address] [address] Deepak Greenfield EGFR-AF MONGOLIAN >60 Normal >=60 [facility] Comment on above: Performed By: #### B MP #### [facility] [address] [address] [address] Deepak Greenfield EGFR-NON AF MONGOLIAN >60 Normal >=60 [facility] Comment on above: Performed By: #### B MP #### [facility] [address] [address] [address] Deepak Greenfield Globulin (S) [Mass/Vol] 4.2 g/dL Normal [facility] Comment on above: Performed By: #### B MP #### [facility] [address] [address] [address] Deepak Greenfield Glucose [Mass/Vol] 105 mg/dL Normal 74-106 [facility] Comment on above: Performed By: #### B MP #### [facility] [address] [address] [address] Deepak Greenfield Potassium [Moles/Vol] 3.9 mmol/L Normal 3.5-5.1 [facility] Comment on above: Performed By: #### B MP #### [facility] [address] [address] [address] Deepak Greenfield Protein [Mass/Vol] 7.5 g/dL Normal 6.4-8.2 [facility] Comment on above: Performed By: #### B MP #### [facility] [address] [address] [address] Deepak Greenfield Sodium [Moles/Vol] 136 mmol/L Normal 136-145 [facility] Comment on above: Performed By: #### B MP #### [facility] [address] [address] [address] Deepak Greenfield Urea nitrogen [Mass/Vol] 13.0 mg/dL Normal 7.0-18.0 [facility] Comment on above: Performed By: #### B MP #### [facility] [address] [address] [address] Deepak Greenfield Urea nitrogen/Creatinine [Mass ratio] 20.0 mg/mg Normal [facility] Comment on above: Performed By: #### B MP #### [facility] [address] [address] [address] Deepak Greenfield XR CHEST 1 Von [...] by: ANICETO GARCIA Date: 2022-07-26 12:27 Normal [facility] Consent for Treatmenton Consent for Treatment [id number] .[id number]:127 Normal [facility] Physician Orderon 07-23-2022 Physician Order [id number] 1.00CD:127 Normal [facility] XR Adult Swallowing Function w/ Videoon [...] mGy = 11.70 DAP = 270.92 Normal [facility] AMMONIAon 06-03-2022 Ammonia (P) [Moles/Vol] 112 umol/L Critically high 11-32 [facility] Comment on above: Performed By: #### A MM #### [facility] [address] [place] [address] Dr. Deepak Greenfield DEPAKENE/ VALPROIC ACIDon DEPAKENE 94.0 ug/ml Normal 50.0-100.0 [facility] Comment on above: Performed By: #### C BC #### [facility] [address] [place] [address] Dr. Deepak Greenfield LIVER PROFILEon 06-03-2022 Albumin [Mass/Vol] 3.6 g/dL Normal 3.4-5.0 [facility] Comment on above: Performed By: #### C BC #### [facility] [address] [place] [address] Dr. Deepak Greenfield Albumin/Globulin [Mass ratio] 0.9 {ratio} Normal [facility] Comment on above: Performed By: #### C BC #### [facility] [address] [place] [address] Dr. Deepak Greenfield ALP [Catalytic activity/Vol] 55 U/L Normal 46-116 [facility] Comment on above: Performed By: #### C BC #### [facility] [address] [place] [address] Dr. Deepak Greenfield ALT [Catalytic activity/Vol] 76 U/L Critically high 16-63 [facility] Comment on above: Performed By: #### C BC #### [facility] [address] [place] [address] Dr. Deepak Greenfield AST [Catalytic activity/Vol] 51 U/L Critically high 15-37 [facility] Comment on above: Performed By: #### C BC #### [facility] [address] [place] [address] Dr. Deepak Greenfield BILI, CONJUGATED 0.1 mg/dL Normal 0.0-0.2 [facility] Comment on above: Performed By: #### C BC #### [facility] [address] [place] [address] Dr. Deepak Greenfield Bilirubin [Mass/Vol] 0.4 mg/dL Normal 0.2-1.0 [facility] Comment on above: Performed By: #### C BC #### [facility] [address] [place] [address] Dr. Deepak Greenfield Globulin (S) [Mass/Vol] 4.1 g/dL Normal [facility] Comment on above: Performed By: #### C BC #### [facility] [address] [place] [address] Dr. Deepak Greenfield Protein [Mass/Vol] 7.7 g/dL Normal 6.4-8.2 [facility] Comment on above: Performed By: #### C BC #### [facility] [address] [place] [address] Dr. Deepak Greenfield AMMONIAon 04-22-2022 Ammonia (P) [Moles/Vol] 108 umol/L Critically high [facility] Comment on above: Performed By: #### B MP #### [facility] [address] [place] [address] Dr. Deepak Greenfield CBC AUTO DIFFon 04-22-2022 BASO # 0.0 103/ul Normal 0.0-0.1 [facility] Comment on above: Performed By: #### C BC #### [facility] [address] [place] [address] Dr. Deepak Greenfield Basophils/100 WBC (Bld) 0.5 % Normal 0.2-2.0 [facility] Comment on above: Performed By: #### C BC #### [facility] [address] [place] [address] Dr. Deepak Greenfield EO # 0.1 103/ul Normal 0.0-0.7 [facility] Comment on above: Performed By: #### C BC #### [facility] [address] [place] [address] Dr. Deepak Greenfield Eosinophils/100 WBC (Bld) 1.4 % Normal 0.9-7.0 [facility] Comment on above: Performed By: #### C BC #### [facility] [address] [place] [address] Dr. Deepak Greenfield Erythrocyte distribution width (RBC) [Ratio] 14.2 % Normal 11.0-15.0 [facility] Comment on above: Performed By: #### C BC #### [facility] [address] [place] [address] Dr. Deepak Greenfield Hematocrit (Bld) [Volume fraction] 37.0 % Critically low 42.0-54.0 [facility] Comment on above: Performed By: #### C BC #### [facility] [address] [place] [address] Dr. Deepak Greenfield Hemoglobin (Bld) [Mass/Vol] 12.3 g/dL Critically low 14.0-18.0 [facility] Comment on above: Performed By: #### C BC #### [facility] [address] [place] [address] Dr. Deepak Greenfield IG # 0.00 10e3/ul Normal 0.00-0.03 [facility] Comment on above: Performed By: #### C BC #### [facility] [address] [place] [address] Dr. Deepak Greenfield IG % 0.0 % Normal 0.0-0.5 [facility] Comment on above: Performed By: #### C BC #### [facility] [address] [place] [address] Dr. Deepak Greenfield LYMPH # 3.3 103/ul Normal 1.2-3.8 [facility] Comment on above: Performed By: #### C BC #### [facility] [address] [place] [address] Dr. Deepak Greenfield Lymphocytes/100 WBC (Bld) 51.5 % Normal 20.5-60.0 [facility] [facility] Comment on above: Performed By: #### C BC #### [facility] [address] [place] [address] Dr. Deeapk Greenfield MANUAL DIFF REQ NO Normal [facility] Comment on above: Performed By: #### C BC #### [facility] [address] [place] [address] Dr. Deepak Greenfield MCH (RBC) [Entitic mass] 32.2 pg Normal 25.9-34.0 [facility] Comment on above: Performed By: #### C BC #### [facility] [address] [place] [address] Dr. Deepak Greenfield MCHC (RBC) [Mass/Vol] 33.2 g/dL Normal 29.9-35.2 [facility] Comment on above: Performed By: #### C BC #### [facility] [address] [place] [address] Dr. Deepak Greenfield MCV (RBC) [Entitic vol] 96.9 fL Critically high 80.0-94.0 [facility] Comment on above: Performed By: #### C BC #### [facility] [address] [place] [address] Dr. Deepak Greenfield MONO # 0.6 103/ul Normal 0.3-0.8 [facility] Comment on above: Performed By: #### C BC #### [facility] [address] [place] [address] Dr. Deepak Greenfield Monocytes/100 WBC (Bld) 9.7 % Normal 1.7-12.0 [facility] Comment on above: Performed By: #### C BC #### [facility] [address] [place] [address] Dr. Deepak Greenfield NEUT # 2.4 103/ul Normal 1.4-6.5 [facility] Comment on above: Performed By: #### C BC #### [facility] [address] [place] [address] Dr. Deepak Greenfield Neutrophils/100 WBC (Bld) 36.9 % Critically low 43.0-75.0 [facility] Comment on above: Performed By: #### C BC #### [facility] [address] [place] [address] Dr. Deepak Greenfield Platelet mean volume (Bld) [Entitic vol] 10.2 fL Normal 9.5-13.5 [facility] Comment on above: Performed By: #### C BC #### [facility] [address] [place] [address] Dr. Deepak Greenfield PLT 248 103/ul Normal 150-450 [facility] Comment on above: Performed By: #### C BC #### [facility] [address] [place] [address] Dr. Deepak Greenfield RBC 3.82 106/ul Critically low 4.70-6.10 [facility] Comment on above: Performed By: #### C BC #### [facility] [address] [place] [address] Dr. Deepak Greenfield WBC 6.5 103/ul Normal 4.0-11.0 [facility] Comment on above: Performed By: #### C BC #### [facility] [address] [place] [address] Dr. Deepak Greenfield FERRITINon 04-22-2022 Ferritin [Mass/Vol] 152.0 ng/mL Normal 26.0-388.0 [facility] Comment on above: Performed By: #### M G, CMP #### [facility] [address] [place] [address] Dr. Deepak Greenfield IRONon 04-22-2022 Iron [Mass/Vol] 136.0 ug/dL Normal 65.0-175.0 [facility] Comment on above: Performed By: #### M G, CMP #### [facility] [address] [place] [address] Dr. Deepak Greenfield MAGNESIUMon 04-22-2022 Magnesium [Mass/Vol] 1.6 mg/dL Critically low 1.8-2.4 [facility] Comment on above: Performed By: #### I NFLUAB #### [facility] [address] [place] [address] Dr. Deepak Greenfield VITAMIN B12on 04-22-2022 Cobalamin (Vitamin B12) [Mass/Vol] 545.0 pg/mL Normal 193.0-986.0 [facility] Comment on above: Performed By: #### M G, CMP #### [facility] [address] [place] [address] Dr. Deepak Greenfield CBC AUTO DIFFon 03-19-2022 BASO # 0.0 103/ul Normal 0.0-0.1 [facility] Comment on above: Performed By: #### M G, CMP #### [facility] [address] [place] [address] Dr. Deepak Greenfield Basophils/100 WBC (Bld) 0.5 % Normal 0.2-2.0 [facility] Comment on above: Performed By: #### M G, CMP #### [facility] [address] [place] [address] Dr. Deepak Greenfield EO # 0.2 103/ul Normal 0.0-0.7 [facility] Comment on above: Performed By: #### M G, CMP #### [facility] [address] [place] [address] Dr. Deepak Greenfield Eosinophils/100 WBC (Bld) 2.0 % Normal 0.9-7.0 [facility] Comment on above: Performed By: #### M G, CMP #### [facility] [address] [place] [address] Dr. Deepak Greenfield Erythrocyte distribution width (RBC) [Ratio] 13.5 % Normal 11.0-15.0 [facility] Comment on above: Performed By: #### M G, CMP #### [facility] [address] [place] [address] Dr. Deepak Greenfield Hematocrit (Bld) [Volume fraction] 38.5 % Critically low 42.0-54.0 [facility] Comment on above: Performed By: #### M G, CMP #### [facility] [address] [place] [address] Dr. Deepak Greenfield Hemoglobin (Bld) [Mass/Vol] 12.6 g/dL Critically low 14.0-18.0 [facility] Comment on above: Performed By: #### M G, CMP #### [facility] [address] [place] [address] Dr. Deepak Greenfield IG # 0.02 10e3/ul Normal 0.00-0.03 [facility] Comment on above: Performed By: #### M G, CMP #### [facility] [address] [address] [address] Depeak Greenfield IG % 0.2 % Normal 0.0-0.5 [facility] Comment on above: Performed By: #### M G, CMP #### [facility] [address] [address] [address] Deepak Greenfield LYMPH # 3.1 103/ul Normal 1.2-3.8 [facility] Comment on above: Performed By: #### M G, CMP #### [facility] [address] [address] [address] Deepak Greenfield Lymphocytes/100 WBC (Bld) 36.2 % Normal 20.5-60.0 [facility] Comment on above: Performed By: #### M G, CMP #### [facility] [address] [place] [address] Dr. Deepak Greenfield MANUAL DIFF REQ NO Normal [facility] Comment on above: Performed By: #### M G, CMP #### [facility] [address] [place] [address] Dr. Deepak Greenfield MCH (RBC) [Entitic mass] 32.1 pg Normal 25.9-34.0 [facility] Comment on above: Performed By: #### M G, CMP #### [facility] [address] [place] [address] Dr. Deepak Greenfield MCHC (RBC) [Mass/Vol] 32.7 g/dL Normal 29.9-35.2 [facility] Comment on above: Performed By: #### M G, CMP #### [facility] [address] [place] [address] Dr. Deepak Greenfield MCV (RBC) [Entitic vol] 98.0 fL Critically high 80.0-94.0 [facility] Comment on above: Performed By: #### M G, CMP #### [facility] [address] [place] [address] Dr. Deepak Greenfield MONO # 0.9 103/ul Critically high 0.3-0.8 [facility] Comment on above: Performed By: #### M G, CMP #### [facility] [address] [address] [address] Deepak Greenfield Monocytes/100 WBC (Bld) 10.6 % Normal 1.7-12.0 [facility] Comment on above: Performed By: #### M G, CMP #### [facility] [address] [address] [address] Deepak Greenfield NEUT # 4.3 103/ul Normal 1.4-6.5 [facility] Comment on above: Performed By: #### M G, CMP #### [facility] [address] [place] [address] Dr. Deepak Greenfield Neutrophils/100 WBC (Bld) 50.5 % Normal 43.0-75.0 [facility] Comment on above: Performed By: #### M G, CMP #### [facility] [address] [place] [address] Dr. Deepak Greenfield Platelet mean volume (Bld) [Entitic vol] 9.9 fL Normal 9.5-13.5 [facility] Comment on above: Performed By: #### M G, CMP #### [facility] [address] [place] [address] Dr. Deepak Greenfield PLT 263 103/ul Normal 150-450 [facility] Comment on above: Performed By: #### M G, CMP #### [facility] [address] [place] [address] Dr. Deepak Greenfield RBC 3.93 106/ul Critically low 4.70-6.10 [facility] Comment on above: Performed By: #### M G, CMP #### [facility] [address] [place] [address] Dr. Deepak Greenfield WBC 8.6 103/ul Normal 4.0-11.0 [facility] Comment on above: Performed By: #### M G, CMP #### [facility] [address] [place] [address] Dr. Deepak Greenfield MAGNESIUMon 03-19-2022 Magnesium [Mass/Vol] 1.5 mg/dL Critically low 1.8-2.4 [facility] Comment on above: Performed By: #### M G, CMP #### [facility] [address] [place] [address] Dr. Deepak Greenfield PROF 14(COMP METB)on 022 Albumin [Mass/Vol] 3.4 g/dL Normal 3.4-5.0 [facility] Comment on above: Performed By: #### M G, CMP #### [facility] [address] [place] [address] Dr. Deepak Greenfield Albumin/Globulin [Mass ratio] 0.9 {ratio} Normal [facility] Comment on above: Performed By: #### M G, CMP #### [facility] [address] [place] [address] Dr. Deepak Greenfield ALP [Catalytic activity/Vol] 47 U/L Normal 46-116 [facility] Comment on above: Performed By: #### M G, CMP #### [facility] [address] [place] [address] Dr. Deepak Greenfield ALT [Catalytic activity/Vol] 48 U/L Normal 16-63 [facility] Comment on above: Performed By: #### M G, CMP #### [facility] [address] [place] [address] Dr. Deepak Greenfield Anion gap [Moles/Vol] 9.5 mmol/L Normal [facility] Comment on above: Performed By: #### M G, CMP #### [facility] [address] [place] [address] Dr. Deepak Greenfield AST [Catalytic activity/Vol] 30 U/L Normal 15-37 [facility] Comment on above: Performed By: #### M G, CMP #### [facility] [address] [place] [address] Dr. Deepak Greenfield Bilirubin [Mass/Vol] 0.2 mg/dL Normal 0.2-1.0 [facility] Comment on above: Performed By: #### M G, CMP #### [facility] [address] [place] [address] Dr. Deepak Greenfield Calcium [Mass/Vol] 8.7 mg/dL Normal 8.5-10.1 [facility] Comment on above: Performed By: #### M G, CMP #### [facility] [address] [address] [address] Deepak Greenfield Chloride [Moles/Vol] 105 mmol/L Normal 98-107 [facility] Comment on above: Performed By: #### M G, CMP #### [facility] [address] [address] [address] Deepak Greenfield CO2 [Moles/Vol] 32.6 mmol/L Critically high 21.0-32.0 [facility] Comment on above: Performed By: #### M G, CMP #### [facility] [address] [place] [address] Dr. Deepak Greenfield Creatinine [Mass/Vol] 0.70 mg/dL Normal 0.70-1.30 [facility] Comment on above: Performed By: #### M G, CMP #### [facility] [address] [place] [address] Dr. Deepak Greenfield EGFR-AF MONGOLIAN >60 Normal >=60 [facility] Comment on above: Performed By: #### M G, CMP #### [facility] [address] [place] [address] Dr. Deepak Greenfield EGFR-NON AF MONGOLIAN >60 Normal >=60 [facility] Comment on above: Performed By: #### M G, CMP #### [facility] [address] [place] [address] Dr. Deepak Greenfield Globulin (S) [Mass/Vol] 3.8 g/dL Normal [facility] Comment on above: Performed By: #### M G, CMP #### [facility] [address] [place] [address] Dr. Deepak Greenfield Glucose [Mass/Vol] 98 mg/dL Normal 74-106 [facility] Comment on above: Performed By: #### M G, CMP #### [facility] [address] [place] [address] Dr. Deepak Greenfield Potassium [Moles/Vol] 4.1 mmol/L Normal 3.5-5.1 [facility] Comment on above: Performed By: #### M G, CMP #### [facility] [address] [place] [address] Dr. Deepak Greenfield Protein [Mass/Vol] 7.2 g/dL Normal 6.4-8.2 [facility] Comment on above: Performed By: #### M G, CMP #### [facility] [address] [place] [address] Dr. Deepak Greenfield Sodium [Moles/Vol] 143 mmol/L Normal 136-145 [facility] Comment on above: Performed By: #### M G, CMP #### [facility] [address] [place] [address] Dr. Deepak Greenfield Urea nitrogen [Mass/Vol] 10.0 mg/dL Normal 7.0-18.0 [facility] Comment on above: Performed By: #### Karishma G, CMP #### [facility] [address] [place] [address] Dr. Deepak Greenfield Urea nitrogen/Creatinine [Mass ratio] 14.3 mg/mg Normal [facility] Comment on above: Performed By: #### Karishma House, CMP #### [facility] [address] [place] [address] Dr. Deepak Greenfield VITAMIN D 25 OHon 03-19-2022 VIT D 25-OH 67.5 ng/mL Normal [facility] Comment on above: Performed By: #### Karishma House, CMP #### [facility] [address] [place] [address] Dr. Deepak Greenfield VIT D RANGES SEE BELOW Normal [facility] Comment on above: Result Comment: <20 ng/mL Vit D deficient 20 - <30 ng/mL Vit D insufficient 30 - 100 ng/mL Vit D sufficient >100 ng/mL Potential Toxicity Performed By: #### M G, CMP #### [facility] [address] [place] [address] Dr. Deepak Greenfield AMMONIAon 03-10-2022 Ammonia (P) [Moles/Vol] 36 umol/L Critically high [facility] Comment on above: Performed By: #### C BC #### [facility] [address] [place] [address] Dr. Deepak Greenfield DEPAKENE/ VALPROIC ACIDon DEPAKENE 93.5 ug/ml Normal 50.0-100.0 [facility] Comment on above: Performed By: #### B MP #### [facility] [address] [place] [address] Dr. Deepak Greenfield BNPon 01-24-2022 Natriuretic peptide B (Bld) [Mass/Vol] 183.0 pg/mL Normal <=450.0 [facility] Comment on above: Performed By: #### M G, CMP #### [facility] [address] [place] [address] Dr. Deepak Greenfield CBC AUTO DIFFon 01-24-2022 BASO # 0.0 103/ul Normal 0.0-0.1 [facility] Comment on above: Performed By: #### C VDTBH #### [facility] [address] [place] [address] Dr. Deepak Greenfield Basophils/100 WBC (Bld) 0.3 % Normal 0.2-2.0 [facility] Comment on above: Performed By: #### C VDTBH #### [facility] [address] [place] [address] Dr. Deepak Greenfield EO # 0.1 103/ul Normal 0.0-0.7 [facility] Comment on above: Performed By: #### C VDTBH #### [facility] [address] [place] [address] Dr. Deepak Greenfield Eosinophils/100 WBC (Bld) 0.4 % Critically low 0.9-7.0 [facility] Comment on above: Performed By: #### C VDTBH #### [facility] [address] [place] [address] Dr. Deepak Greenfield Erythrocyte distribution width (RBC) [Ratio] 13.6 % Normal 11.0-15.0 [facility] Comment on above: Performed By: #### C VDTBH #### [facility] [address] [place] [address] Dr. Deepak Greenfield Hematocrit (Bld) [Volume fraction] 39.3 % Critically low 42.0-54.0 [facility] Comment on above: Performed By: #### C VDTBH #### [facility] [address] [place] [address] Dr. Deepak Greenfield Hemoglobin (Bld) [Mass/Vol] 12.6 g/dL Critically low 14.0-18.0 [facility] Comment on above: Performed By: #### C VDTBH #### [facility] [address] [place] [address] Dr. Deepak Greenfield IG # 0.04 10e3/ul Critically high 0.00-0.03 [facility] Comment on above: Performed By: #### C VDTBH #### [facility] [address] [place] [address] Dr. Deepak Greenfield IG % 0.3 % Normal 0.0-0.5 [facility] Comment on above: Performed By: #### C VDTBH #### [facility] [address] [place] [address] Dr. Deepak Greenfield LYMPH # 2.4 103/ul Normal 1.2-3.8 [facility] Comment on above: Performed By: #### C VDTBH #### [facility] [address] [place] [address] Dr. Deepak Greenfield Lymphocytes/100 WBC (Bld) 16.6 % Critically low 20.5-60.0 [facility] Comment on above: Performed By: #### C VDTBH #### [facility] [address] [place] [address] Dr. Deepak Greenfield MANUAL DIFF REQ NO Normal [facility] Comment on above: Performed By: #### C VDTBH #### [facility] [address] [place] [address] Dr. Deepak Greenfield MCH (RBC) [Entitic mass] 32.0 pg Normal 25.9-34.0 [facility] Comment on above: Performed By: #### C VDTBH #### [facility] [address] [place] [address] Dr. Deepak Greenfield MCHC (RBC) [Mass/Vol] 32.1 g/dL Normal 29.9-35.2 [facility] Comment on above: Performed By: #### C VDTBH #### [facility] [address] [address] [address] Deepak Greenfield MCV (RBC) [Entitic vol] 99.7 fL Critically high 80.0-94.0 [facility] Comment on above: Performed By: #### C VDTBH #### [facility] [address] [place] [address] Dr. Deepak Greenfield MONO # 1.4 103/ul Critically high 0.3-0.8 [facility] Comment on above: Performed By: #### C VDTBH #### [facility] [address] [place] [address] Dr. Deepak Greenfield Monocytes/100 WBC (Bld) 9.8 % Normal 1.7-12.0 [facility] Comment on above: Performed By: #### C VDTBH #### [facility] [address] [place] [address] Dr. Deepak Greenfield NEUT # 10.7 103/ul Critically high 1.4-6.5 [facility] Comment on above: Performed By: #### C VDTBH #### [facility] [address] [place] [address] Dr. Deepak Greenfield Neutrophils/100 WBC (Bld) 72.6 % Normal 43.0-75.0 [facility] Comment on above: Performed By: #### C VDTBH #### [facility] [address] [address] [address] Deepak Greenfield Platelet mean volume (Bld) [Entitic vol] 10.4 fL Normal 9.5-13.5 [facility] Comment on above: Performed By: #### C VDTBH #### [facility] [address] [address] [address] Deepak Greenfield PLT 280 103/ul Normal 150-450 [facility] Comment on above: Performed By: #### C VDTBH #### [facility] [address] [address] [address] Deepak Greenfield RBC 3.94 106/ul Critically low 4.70-6.10 [facility] Comment on above: Performed By: #### C VDTBH #### [facility] [address] [address] [address] Deepak Greenfield WBC 14.7 103/ul Critically high 4.0-11.0 [facility] Comment on above: Performed By: #### C VDTBH #### [facility] [address] [address] [address] Deepak Greenfield CULTURE BLOODon 01-24-2022 Microscopic examination of blood, culture Culture Observations: No growth at 5 days. Normal [facility] Comment on above: Performed By: #### C BC #### [facility] [address] [place] [address] Dr. Deepak Greenfield Microscopic examination of blood, culture Culture Observations: No growth at 5 days. Normal [facility] Comment on above: Performed By: #### C BC #### [facility] [address] [address] [address] Deepak Greenfield [facility] SARS-CoV-2 (COVID-19) RNA CINDY+probe Ql (Unsp spec) Not detected Normal NOT DETECTED [facility] Comment on above: Result Comment: When diagnostic [...] for this test is supported by the [place] of [employer] and Human Service's declaration that [...] used). Performed By: #### I NFLUAB #### [facility] [address] [place] [address] Dr. Deepak Greenfield LACTATE/LACTIC ACIDon 2021 Lactate [Moles/Vol] 1.7 mmol/L Normal 0.4-1.9 [facility] Comment on above: Performed By: #### M G, CMP #### [facility] [address] [place] [address] Dr. Deepak Greenfield PROF 14(COMP METB)on 022 Albumin [Mass/Vol] 3.2 g/dL Critically low 3.4-5.0 [facility] Comment on above: Performed By: #### M G, CMP #### [facility] [address] [place] [address] Dr. Deepak Greenfield Albumin/Globulin [Mass ratio] 0.7 {ratio} Normal [facility] Comment on above: Performed By: #### M G, CMP #### [facility] [address] [place] [address] Dr. Deepak Greenfield ALP [Catalytic activity/Vol] 49 U/L Normal 46-116 [facility] Comment on above: Performed By: #### M G, CMP #### [facility] [address] [place] [address] Dr. Deepak Greenfield ALT [Catalytic activity/Vol] 41 U/L Normal 16-63 [facility] Comment on above: Performed By: #### M G, CMP #### [facility] [address] [place] [address] Dr. Deepak Greenfield Anion gap [Moles/Vol] 11.1 mmol/L Normal [facility] Comment on above: Performed By: #### M G, CMP #### [facility] [address] [place] [address] Dr. Deepak Greenfield AST [Catalytic activity/Vol] 29 U/L Normal 15-37 [facility] Comment on above: Performed By: #### M G, CMP #### [facility] [address] [place] [address] Dr. Deepak Greenfield Bilirubin [Mass/Vol] 0.5 mg/dL Normal 0.2-1.0 [facility] Comment on above: Performed By: #### M G, CMP #### [facility] [address] [place] [address] Dr. Deepak Greenfield Calcium [Mass/Vol] 9.1 mg/dL Normal 8.5-10.1 [facility] Comment on above: Performed By: #### M G, CMP #### [facility] [address] [place] [address] Dr. Deepak Greenfield Chloride [Moles/Vol] 108 mmol/L Critically high 98-107 [facility] Comment on above: Performed By: #### M G, CMP #### [facility] [address] [place] [address] Dr. Deepak Greenfield CO2 [Moles/Vol] 25.7 mmol/L Normal 21.0-32.0 [facility] Comment on above: Performed By: #### M G, CMP #### [facility] [address] [place] [address] Dr. Deepak Greenfield Creatinine [Mass/Vol] 0.89 mg/dL Normal 0.70-1.30 [facility] Comment on above: Performed By: #### M G, CMP #### [facility] [address] [place] [address] Dr. Deepak Greenfield EGFR-AF MONGOLIAN >60 Normal >=60 [facility] Comment on above: Performed By: #### M G, CMP #### [facility] [address] [place] [address] Dr. Deepak Greenfield EGFR-NON AF MONGOLIAN >60 Normal >=60 [facility] Comment on above: Performed By: #### M G, CMP #### [facility] [address] [place] [address] Dr. Deepak Greenfield Globulin (S) [Mass/Vol] 4.5 g/dL Normal [facility] Comment on above: Performed By: #### M G, CMP #### [facility] [address] [place] [address] Dr. Deepak Greenfield Glucose [Mass/Vol] 178 mg/dL Critically high 74-106 [facility] Comment on above: Performed By: #### M G, CMP #### [facility] [address] [place] [address] Dr. Deepak Greenfield Potassium [Moles/Vol] 3.8 mmol/L Normal 3.5-5.1 [facility] Comment on above: Performed By: #### M G, CMP #### [facility] [address] [place] [address] Dr. Deepak Greenfield Protein [Mass/Vol] 7.7 g/dL Normal 6.4-8.2 [facility] Comment on above: Performed By: #### M G, CMP #### [facility] [address] [place] [address] Dr. Deepak Greenfield Sodium [Moles/Vol] 141 mmol/L Normal 136-145 [facility] Comment on above: Performed By: #### M G, CMP #### [facility] [address] [place] [address] Dr. Deepak Greenfield Urea nitrogen [Mass/Vol] 16.0 mg/dL Normal 7.0-18.0 [facility] Comment on above: Performed By: #### M G, CMP #### [facility] [address] [place] [address] Dr. Deepak Greenfield Urea nitrogen/Creatinine [Mass ratio] 18.0 mg/mg Normal [facility] Comment on above: Performed By: #### M G, CMP #### [facility] [address] [place] [address] Dr. Deepak Greenfield TROPONIN, HIGH SENSITIVITYon 01-24-2022 HSTROP 6.4 pg/mL Normal 4.0-76.1 [facility] Comment on above: Result Comment: CUT- OFF POINTS HAVE BEEN ESTABLISHED BASED ON THE FOURTH UNIVERSAL DEFINITIONS OF MYOCARDIAL INFARCTION. THE UPPER REFERENCE LIMIT (URL) OF TROPONIN, DEFINED THE 99TH PERCENTILE OF cTnI DISTRIBUTION IN A REFERENCE POPULATION, HAS BEEN CONFIRMED THE DECISION THRESHOLD FOR CT DIAGNOSIS. Performed By: #### M G, CMP #### [facility] [address] [place] [address] Dr. Deepak Greenfield XR CHEST 1 Von [...] ANICETO CROCKER Date: 2022-01-24 15:28 Normal [facility] UA RANDOM W/MICROSCOPICon BACTERIA NONE SEEN Normal NONE SEEN [facility] Comment on above: Performed By: #### C VDTBH #### [facility] [address] [place] [address] Dr. Deepak Greenfield Bilirubin Ql (U) Negative Normal NEGATIVE [facility] Comment on above: Performed By: #### C VDTBH #### [facility] [address] [place] [address] Dr. Deepak Greenfield CAST NONE SEEN Normal NONE SEEN [facility] Comment on above: Performed By: #### C VDTBH #### [facility] [address] [place] [address] Dr. Deepak Greenfield Clarity (U) CLEAR Normal CLEAR [facility] Comment on above: Performed By: #### C VDTBH #### [facility] [address] [place] [address] Dr. Deepak Greenfield Color (U) YELLOW Normal YELLOW [facility] Comment on above: Performed By: #### C VDTBH #### [facility] [address] [place] [address] Dr. Deepak Greenfield Crystals LM Nom (Urine sed) NONE SEEN Normal NONE SEEN [facility] Comment on above: Performed By: #### C VDTBH #### [facility] [address] [place] [address] Dr. Deepak Greefnield Epithelial cells LM Ql (Urine sed) RARE Normal NONE SEEN /RARE [facility] Comment on above: Performed By: #### C VDTBH #### [facility] [address] [place] [address] Dr. Deepak Greenfield Glucose Ql (U) Negative Normal NEGATIVE [facility] Comment on above: Performed By: #### C VDTBH #### [facility] [address] [place] [address] Dr. Deepak Greenfield Hemoglobin Ql (U) Negative Normal NEGATIVE [facility] Comment on above: Performed By: #### C VDTBH #### [facility] [address] [place] [address] Dr. Deepak Greenfield Ketones Ql (U) 15 mg/dl Abnormal NEGATIVE [facility] Comment on above: Performed By: #### C VDTBH #### [facility] [address] [place] [address] Dr. Deepak Greenfield LEUKOCYTES Negative Normal NEGATIVE [facility] Comment on above: Performed By: #### C VDTBH #### [facility] [address] [place] [address] Dr. Deepak Greenfield MUCOUS NONE SEEN Normal NONE SEEN [facility] Comment on above: Performed By: #### C VDTBH #### [facility] [address] [place] [address] Dr. Deepak Greenfield Nitrite Ql (U) Negative Normal NEGATIVE [facility] Comment on above: Performed By: #### C VDTBH #### [facility] [address] [place] [address] Dr. Deepak Greenfield pH (U) 6.0 [pH] Normal 5-9 [facility] Comment on above: Performed By: #### C VDTBH #### [facility] [address] [place] [address] Dr. Deepak Greenfield RBC 0-2 Normal 0-2 [facility] Comment on above: Performed By: #### C VDTBH #### [facility] [address] [place] [address] Dr. Deepak Greenfield SPEC GRAVITY 1.020 Normal 1.005-<=1.025 [facility] Comment on above: Performed By: #### C VDTBH #### [facility] [address] [place] [address] Dr. Deepak Greenfield UA PROTEIN Negative Normal NEGATIVE/ TRACE [facility] Comment on above: Performed By: #### C VDTBH #### [facility] [address] [place] [address] Dr. Deepak Greenfield Urobilinogen Qn (U) 0.2 {Ottoniel'U}/dL Normal 0.2 - 1. 0 [facility] Comment on above: Performed By: #### C VDTBH #### [facility] [address] [place] [address] Dr. Deepak Greenfield WBC NONE SEEN Normal NONE SEEN [facility] Comment on above: Performed By: #### C VDTBH #### [facility] [address] [place] [address] Dr. Deepak Greenfield ALBUMINon 01-12-2022 Albumin [Mass/Vol] 3.4 g/dL Normal 3.4-5.0 [facility] Comment on above: Performed By: #### C VDTBH #### [facility] [address] [place] [address] Dr. Deepak Greenfield ALKALINE PHOSPHAon ALP [Catalytic activity/Vol] 46 U/L Normal 46-116 [facility] Comment on above: Performed By: #### C VDTBH #### [facility] [address] [place] [address] Dr. Deepak Greenfield AMMONIAon 01-12-2022 Ammonia (P) [Moles/Vol] 93 umol/L Critically high 11-32 [facility] Comment on above: Performed By: #### I NFLUAB #### [facility] [address] [place] [address] Dr. Deepak Greenfield BILIRUBIN CONJUGATED (DIRECT )on 01-12-2022 BILI, CONJUGATED 0.1 mg/dL Normal 0.0-0.2 [facility] Comment on above: Performed By: #### C VDTBH #### [facility] [address] [place] [address] Dr. Deepak Greenfield BILIRUBIN TOTALon 01-12-2022 Bilirubin [Mass/Vol] 0.4 mg/dL Normal 0.2-1.0 [facility] Comment on above: Performed By: #### C VDTBH #### [facility] [address] [place] [address] Dr. Deepak Greenfield CBC AUTO DIFFon 01-12-2022 BASO # 0.0 103/ul Normal 0.0-0.1 [facility] Comment on above: Performed By: #### M G, CMP #### [facility] [address] [place] [address] Dr. Deepak Greenfield Basophils/100 WBC (Bld) 0.3 % Normal 0.2-2.0 [facility] Comment on above: Performed By: #### M G, CMP #### [facility] [address] [place] [address] Dr. Deepak Greenfield EO # 0.1 103/ul Normal 0.0-0.7 [facility] Comment on above: Performed By: #### M G, CMP #### [facility] [address] [place] [address] Dr. Deepak Greenfield Eosinophils/100 WBC (Bld) 1.3 % Normal 0.9-7.0 [facility] Comment on above: Performed By: #### M G, CMP #### [facility] [address] [place] [address] Dr. Deepak Greenfield Erythrocyte distribution width (RBC) [Ratio] 14.2 % Normal 11.0-15.0 [facility] Comment on above: Performed By: #### M G, CMP #### [facility] [address] [place] [address] Dr. Deepak Greenfield Hematocrit (Bld) [Volume fraction] 40.4 % Critically low 42.0-54.0 [facility] Comment on above: Performed By: #### M G, CMP #### [facility] [address] [place] [address] Dr. Deepak Greenfield Hemoglobin (Bld) [Mass/Vol] 13.1 g/dL Critically low 14.0-18.0 [facility] Comment on above: Performed By: #### M G, CMP #### [facility] [address] [place] [address] Dr. Deepak Greenfield IG # 0.01 10e3/ul Normal 0.00-0.03 [facility] Comment on above: Performed By: #### M G, CMP #### [facility] [address] [place] [address] Dr. Deepak Greenfield IG % 0.1 % Normal 0.0-0.5 [facility] Comment on above: Performed By: #### M G, CMP #### [facility] [address] [place] [address] Dr. Deepak Greenfield LYMPH # 3.3 103/ul Normal 1.2-3.8 [facility] Comment on above: Performed By: #### M G, CMP #### [facility] [address] [place] [address] Dr. Deepak Greenfield Lymphocytes/100 WBC (Bld) 42.3 % Normal 20.5-60.0 [facility] Comment on above: Performed By: #### Karishma G, CMP #### [facility] [address] [place] [address] Dr. Deepak Greenfield MANUAL DIFF REQ NO Normal [facility] Comment on above: Performed By: #### M G, CMP #### [facility] [address] [place] [address] Dr. Deepak Greenfield MCH (RBC) [Entitic mass] 32.4 pg Normal 25.9-34.0 [facility] Comment on above: Performed By: #### M G, CMP #### [facility] [address] [place] [address] Dr. Deepak Greenfield MCHC (RBC) [Mass/Vol] 32.4 g/dL Normal 29.9-35.2 [facility] Comment on above: Performed By: #### M G, CMP #### [facility] [address] [place] [address] Dr. Deepak Greenfield MCV (RBC) [Entitic vol] 100.0 fL Critically high 80.0-94.0 [facility] Comment on above: Performed By: #### M G, CMP #### [facility] [address] [place] [address] Dr. Deepak Greenfield MONO # 0.6 103/ul Normal 0.3-0.8 [facility] Comment on above: Performed By: #### M G, CMP #### [facility] [address] [place] [address] Dr. Deepak Greenfield Monocytes/100 WBC (Bld) 7.6 % Normal 1.7-12.0 [facility] Comment on above: Performed By: #### M G, CMP #### [facility] [address] [place] [address] Dr. Deepak Greenfield NEUT # 3.8 103/ul Normal 1.4-6.5 [facility] Comment on above: Performed By: #### M G, CMP #### [facility] [address] [place] [address] Dr. Deepak Greenfield Neutrophils/100 WBC (Bld) 48.4 % Normal 43.0-75.0 [facility] Comment on above: Performed By: #### M G, CMP #### [facility] [address] [place] [address] Dr. Deepak Greenfield Platelet mean volume (Bld) [Entitic vol] 9.6 fL Normal 9.5-13.5 [facility] Comment on above: Performed By: #### M G, CMP #### [facility] [address] [place] [address] Dr. Deepak Greenfield PLT 315 103/ul Normal 150-450 [facility] Comment on above: Performed By: #### M G, CMP #### [facility] [address] [place] [address] Dr. Deepak Greenfield RBC 4.04 106/ul Critically low 4.70-6.10 [facility] Comment on above: Performed By: #### M G, CMP #### [facility] [address] [place] [address] Dr. Deepak Greenfield WBC 7.9 103/ul Normal 4.0-11.0 [facility] Comment on above: Performed By: #### M G, CMP #### [facility] [address] [place] [address] Dr. Deepak Greenfield DEPAKENE/VALPROICon 01-13-20 DEPAKENE 89.7 ug/ml Normal 50.0-100.0 [facility] Comment on above: Performed By: #### I NFLUAB #### [facility] [address] [place] [address] Dr. Deepak Greenfield PROF CHEM 8 (BAS METB)on Anion gap [Moles/Vol] 12.9 mmol/L Normal [facility] Comment on above: Performed By: #### I NFLUAB #### [facility] [address] [address] [address] Deepak Greenfield Calcium [Mass/Vol] 8.8 mg/dL Normal 8.5-10.1 [facility] Comment on above: Performed By: #### I NFLUAB #### [facility] [address] [place] [address] Dr. Deepak Greenfield Chloride [Moles/Vol] 103 mmol/L Normal 98-107 [facility] Comment on above: Performed By: #### I NFLUAB #### [facility] [address] [address] [address] Deepak Greenfield CO2 [Moles/Vol] 28.1 mmol/L Normal 21.0-32.0 [facility] Comment on above: Performed By: #### I NFLUAB #### [facility] [address] [place] [address] Dr. Deepak Greenfield Creatinine [Mass/Vol] 0.58 mg/dL Critically low 0.70-1.30 [facility] Comment on above: Performed By: #### I NFLUAB #### [facility] [address] [place] [address] Dr. Deepak Greenfield EGFR-AF MONGOLIAN >60 Normal >=60 [facility] Comment on above: Performed By: #### I NFLUAB #### [facility] [address] [address] [address] Deepak Greenfield EGFR-NON AF MONGOLIAN >60 Normal >=60 [facility] Comment on above: Performed By: #### I NFLUAB #### [facility] [address] [address] [address] Deepak Greenfield Glucose [Mass/Vol] 117 mg/dL Critically high 74-106 [facility] Comment on above: Performed By: #### I NFLUAB #### [facility] [address] [address] [address] Deepak Greenfield Potassium [Moles/Vol] 4.0 mmol/L Normal 3.5-5.1 [facility] Comment on above: Performed By: #### I NFLUAB #### [facility] [address] [address] [address] Deepak Greenfield Sodium [Moles/Vol] 140 mmol/L Normal 136-145 [facility] Comment on above: Performed By: #### I NFLUAB #### [facility] [address] [place] [address] Dr. Deepak Greenfield Urea nitrogen [Mass/Vol] 7.0 mg/dL Normal 7.0-18.0 [facility] Comment on above: Performed By: #### I NFLUAB #### [facility] [address] [place] [address] Dr. Deepak Greenfield Urea nitrogen/Creatinine [Mass ratio] 12.1 mg/mg Normal [facility] Comment on above: Performed By: #### I NFLUAB #### [facility] [address] [place] [address] Dr. Deepak Greenfield SGOTon 01-12-2022 AST [Catalytic activity/Vol] 31 U/L Normal 15-37 [facility] Comment on above: Performed By: #### C VDTBH #### [facility] [address] [place] [address] Dr. Deepak Greenfield SGPTon 01-12-2022 ALT [Catalytic activity/Vol] 48 U/L Normal 16-63 [facility] Comment on above: Performed By: #### C VDTBH #### [facility] [address] [place] [address] Dr. Deepak Cardoso PROTEIN SERUMon 01-12-2022 Protein [Mass/Vol] 7.3 g/dL Normal 6.4-8.2 [facility] Comment on above: Performed By: #### B #### [facility] [address] [place], [place] [address] Dr. Deepak Greenfield XR CHEST 2 Von [...] by: ANICETO CROCKER Date: 2022-01-06 16:15 Normal [facility] Progress Noteson 12-16-2021 Utility Clerk Authentication Interface Message Text ----- Thursday, December 16, 2021 at 12:03:50 PM ----- ----- Provider: [id number] Powell Hygienist -- Clinic: [place] ----- ON LICENSE OF [facility], Pt is ready for tx. Pt presented for dental evaluation for future OR. Caregiver in the room. Patient is non-verbal. Severe intellectual disability, seizure disorder Caregiver stated patient is not pain and no complaining. Radiograph taken today: no possible due to patient behavior Case requested for OR. Guardian mother Katia Lopez. [phone]. [facility] [phone] [id number] [id number] ( [facility]) AVS printed and handed flyer for step by step instruction of OR process to Caregiver exam By: Elliott Ham [facility]. OR ----- Signed on Thursday, December 16, 2021 at 12:18:18 PM ----- ----- Provider: [id number] Heriberto Adams DDS -- Clinic: [place] ----- Normal [facility] XR DEXA BONE DENSITYon 11-20 XR [...] MARGARITO DAVIES Date: 2021-11-20 11:42 Normal [facility] US SCROTUMon 11-14-2021 US SCROTUM [...] KRISTIAN BILLINGS Date: 2021-11-14 07:10 Normal [facility] AMMONIAon 10-31-2021 Ammonia (P) [Moles/Vol] 88 umol/L Critically high 11-32 [facility] Comment on above: Performed By: #### M G, CMP #### [facility] [address] [address] [address] Deepak Greenfield AMMONIAon 10-30-2021 Ammonia (P) [Moles/Vol] 103 umol/L Critically high 11-32 [facility] Comment on above: Result Comment: SPEC IMEN SLIGHTLY HEMOLYZED MAY AFFECT AMM RESULT Performed By: #### I NFLUAB #### [facility] [address] [place] [address] Dr. Deepak Greenfield WOUND CULTUREon 10-23-2021 Bacteria identified Aer cx Nom (Unsp spec) Final report Normal [facility] Comment on above: Performed By: #### C XWND #### [facility] [address] [place] [address] Dr. Deepak Greenfield Result 1 Comment Normal [facility] Comment on above: Result Comment: No g rowth in 36 - 48 hours. Performed By: #### C XWND #### [facility] [address] [place] [address] Dr. Deepak Greenfield WOUND CULTUREon 10-02-2021 Bacteria identified Aer cx Nom (Unsp spec) Final report Normal [facility] Comment on above: Performed By: #### A MM #### [facility] [address] [place] [address] Dr. Deepak Greenfield Result 1 Mixed skin omid Normal [facility] Comment on above: Performed By: #### A MM #### [facility] [address] [place] [address] Dr. Deepak Greenfield AMYLASEon 09-22-2021 Amylase [Catalytic activity/Vol] 24 U/L Critically low 25-115 [facility] Comment on above: Performed By: #### C BC #### [facility] [address] [place] [address] Dr. Deepak Greenfield CBC AUTO DIFFon 09-22-2021 BASO # 0.0 103/ul Normal 0.0-0.1 [facility] Comment on above: Performed By: #### C VDTBH #### [facility] [address] [place] [address] Dr. Deepak Greenfield Basophils/100 WBC (Bld) 0.5 % Normal 0.2-2.0 [facility] Comment on above: Performed By: #### C VDTBH #### [facility] [address] [place] [address] Dr. Deepak Greenfield EO # 0.1 103/ul Normal 0.0-0.7 [facility] Comment on above: Performed By: #### C VDTBH #### [facility] [address] [place] [address] Dr. Deepak Greenfield Eosinophils/100 WBC (Bld) 1.3 % Normal 0.9-7.0 [facility] Comment on above: Performed By: #### C VDTBH #### [facility] [address] [place] [address] Dr. Deepak Greenfield Erythrocyte distribution width (RBC) [Ratio] 13.9 % Normal 11.0-15.0 [facility] Comment on above: Performed By: #### C VDTBH #### [facility] [address] [place] [address] Dr. Deepak Greenfield Hematocrit (Bld) [Volume fraction] 40.0 % Critically low 42.0-54.0 [facility] Comment on above: Performed By: #### C VDTBH #### [facility] [address] [place] [address] Dr. Deepak Greenfield Hemoglobin (Bld) [Mass/Vol] 13.0 g/dL Critically low 14.0-18.0 [facility] Comment on above: Performed By: #### C VDTBH #### [facility] [address] [place] [address] Dr. Deepak Greenfield IG # 0.01 10e3/ul Normal 0.00-0.03 [facility] Comment on above: Performed By: #### C VDTBH #### [facility] [address] [place] [address] Dr. Deepak Greenfield IG % 0.2 % Normal 0.0-0.5 [facility] Comment on above: Performed By: #### C VDTBH #### [facility] [address] [place] [address] Dr. Deepak Greenfield LYMPH # 3.0 103/ul Normal 1.2-3.8 [facility] Comment on above: Performed By: #### C VDTBH #### [facility] [address] [place] [address] Dr. Deepak Greenfield Lymphocytes/100 WBC (Bld) 47.9 % Normal 20.5-60.0 [facility] Comment on above: Performed By: #### C VDTBH #### [facility] [address] [place] [address] Dr. Deepak Greenfield MANUAL DIFF REQ NO Normal [facility] Comment on above: Performed By: #### C VDTBH #### [facility] [address] [place] [address] Dr. Deepak Greenfield MCH (RBC) [Entitic mass] 32.9 pg Normal 25.9-34.0 [facility] Comment on above: Performed By: #### C VDTBH #### [facility] [address] [place] [address] Dr. Deepak Greenfield MCHC (RBC) [Mass/Vol] 32.5 g/dL Normal 29.9-35.2 [facility] Comment on above: Performed By: #### C VDTBH #### [facility] [address] [place] [address] Dr. Deepak Greenfield MCV (RBC) [Entitic vol] 101.3 fL Critically high 80.0-94.0 [facility] Comment on above: Performed By: #### C VDTBH #### [facility] [address] [place] [address] Dr. Deepak Greenfield MONO # 0.7 103/ul Normal 0.3-0.8 [facility] Comment on above: Performed By: #### C VDTBH #### [facility] [address] [place] [address] Dr. Deepak Greenfield Monocytes/100 WBC (Bld) 10.3 % Normal 1.7-12.0 [facility] Comment on above: Performed By: #### C VDTBH #### [facility] [address] [place] [address] Dr. Deepak Greenfield NEUT # 2.5 103/ul Normal 1.4-6.5 [facility] Comment on above: Performed By: #### C VDTBH #### [facility] [address] [place] [address] Dr. Deepak Greenfield Neutrophils/100 WBC (Bld) 39.8 % Critically low 43.0-75.0 [facility] Comment on above: Performed By: #### C VDTBH #### [facility] [address] [place] [address] Dr. Deepak Greenfield Platelet mean volume (Bld) [Entitic vol] 10.1 fL Normal 9.5-13.5 [facility] Comment on above: Performed By: #### C VDTBH #### [facility] [address] [place] [address] Dr. Deepak Greenfield PLT 311 103/ul Normal 150-450 [facility] Comment on above: Performed By: #### C VDTBH #### [facility] [address] [place] [address] Dr. Deepak Greenfield RBC 3.95 106/ul Critically low 4.70-6.10 [facility] Comment on above: Performed By: #### C VDTBH #### [facility] [address] [place] [address] Dr. Deepak Greenfield WBC 6.3 103/ul Normal 4.0-11.0 [facility] Comment on above: Performed By: #### C VDTBH #### [facility] [address] [place] [address] ABD/PELV W CONon [...] JAMIE ALICIA Date: 2021-09-22 02:34 Normal [facility] CT HEAD WO CONon 09-22-2021 [...] BRITTON FONTENOT Date: 2021-09-22 01:13 Normal [facility] LIPASEon 09-22-2021 Lipase [Catalytic activity/Vol] 28.0 U/L Critically low 73.0-393.0 [facility] Comment on above: Performed By: #### C BC #### [facility] [address] [address] [address] Deepak Greenfield PROF 14(COMP METB)on 022 Albumin [Mass/Vol] 3.3 g/dL Critically low 3.4-5.0 [facility] Comment on above: Performed By: #### B MP #### [facility] [address] [address] [address] Deepak Greenfield Albumin/Globulin [Mass ratio] 0.9 {ratio} Normal [facility] Comment on above: Performed By: #### B MP #### [facility] [address] [place] [address] Dr. Deepak Greenfield ALP [Catalytic activity/Vol] 38 U/L Critically low 46-116 [facility] Comment on above: Performed By: #### B MP #### [facility] [address] [address] [address] Deepak Greenfield ALT [Catalytic activity/Vol] 91 U/L Critically high 16-63 [facility] Comment on above: Performed By: #### B MP #### [facility] [address] [place] [address] Dr. Deepak Greenfield Anion gap [Moles/Vol] 10.2 mmol/L Normal [facility] Comment on above: Performed By: #### B MP #### [facility] [address] [address] [address] Deepak Greenfield AST [Catalytic activity/Vol] 50 U/L Critically high 15-37 [facility] Comment on above: Performed By: #### B MP #### [facility] [address] [place] [address] Dr. Deepak Greenfield Bilirubin [Mass/Vol] 0.3 mg/dL Normal 0.2-1.0 [facility] Comment on above: Performed By: #### B MP #### [facility] [address] [address] [address] Deepak Greenfield Calcium [Mass/Vol] 8.6 mg/dL Normal 8.5-10.1 [facility] Comment on above: Performed By: #### B MP #### [facility] [address] [address] [address] Deepak Greenfield Chloride [Moles/Vol] 106 mmol/L Normal 98-107 [facility] Comment on above: Performed By: #### B MP #### [facility] [address] [address] [address] Deepak Greenfield CO2 [Moles/Vol] 29.9 mmol/L Normal 21.0-32.0 [facility] Comment on above: Performed By: #### B MP #### [facility] [address] [place] [address] Dr. Deepak Greenfield Creatinine [Mass/Vol] 0.65 mg/dL Critically low 0.70-1.30 [facility] Comment on above: Performed By: #### B MP #### [facility] [address] [address] [address] Deepak Greenfield EGFR-AF MONGOLIAN >60 Normal >=60 [facility] Comment on above: Performed By: #### B MP #### [facility] [address] [place] [address] Dr. Deepak Greenfield EGFR-NON AF MONGOLIAN >60 Normal >=60 [facility] Comment on above: Performed By: #### B MP #### [facility] [address] [address] [address] Deepak Greenfield Globulin (S) [Mass/Vol] 3.7 g/dL Normal [facility] Comment on above: Performed By: #### B MP #### [facility] [address] [place] [address] Dr. Deepak Greenfield Glucose [Mass/Vol] 105 mg/dL Normal 74-106 [facility] Comment on above: Performed By: #### B MP #### [facility] [address] [place] [address] Dr. Deepak Greenfield Potassium [Moles/Vol] 4.1 mmol/L Normal 3.5-5.1 [facility] Comment on above: Performed By: #### B MP #### [facility] [address] [address] [address] Deepak Greenfield Protein [Mass/Vol] 7.0 g/dL Normal 6.4-8.2 [facility] Comment on above: Performed By: #### B MP #### [facility] [address] [address] [address] Deepak Greenfield Sodium [Moles/Vol] 142 mmol/L Normal 136-145 [facility] Comment on above: Performed By: #### B MP #### [facility] [address] [address] [address] Deepak Greenfield Urea nitrogen [Mass/Vol] 13.0 mg/dL Normal 7.0-18.0 [facility] Comment on above: Performed By: #### B MP #### [facility] [address] [address] [address] Deepak Greenfield Urea nitrogen/Creatinine [Mass ratio] 20.0 mg/mg Normal [facility] Comment on above: Performed By: #### B MP #### [facility] [address] [place] [address] Dr. Deepak Greenfield Vital Signs Date Time Vital Sign Value Performing Clinician Facility 12-16-2022 10:18-0400 Blood Pressure Location Arline Levine [facility] 12-16-2022 10:18-0400 Body temperature 98.06 [degF] Arline Lue [facility] 12-16-2022 10:18-0400 Diastolic blood pressure 78 mm[Hg] Arline Lue [facility] 12-16-2022 10:18-0400 Heart rate 84 /min Arline Levine [facility] 12-16-2022 10:18-0400 Systolic blood pressure 128 mm[Hg] Arline Messinae [facility] 12-23-2021 11:30-0400 Body height 157.48 cm Antionette Leonel Other [employer] Other 12-23-2021 11:30-0400 Body mass index (BMI) [Ratio] 25.79 kg/m2 Antionette Leonel Other [employer] Other 12-23-2021 11:30-0400 Body temperature 98.5 [degF] Antionette Leonel Other [employer] Other 12-23-2021 11:30-0400 Body weight 63.96 kg Antionette Leonel Other [employer] Other 12-23-2021 11:30-0400 Diastolic blood pressure 70 mm[Hg] Antionette Leonel Other [employer] Other 12-23-2021 11:30-0400 Respiratory rate 20 /min Antionette Leonel Other [employer] Other 12-23-2021 11:30-0400 SaO2% (BldA) [Mass fraction] 99 % Antionette Leonel Other [employer] Other 12-23-2021 11:30-0400 Systolic blood pressure 120 mm[Hg] Antionette Leonel Other [employer] Other 10-22-2021 10:29-0400 Blood Pressure Location Arline Levine [facility] 10-22-2021 10:29-0400 Diastolic blood pressure 92 mm[Hg] [facility] 10-22-2021 10:29-0400 Heart rate 100 /min [facility]ue [facility] 10-22-2021 10:29-0400 Respiratory rate 16 /min [facility] Lue [facility] 10-22-2021 10:29-0400 Systolic blood pressure 137 mm[Hg] Arline Lue [facility] Encounters Encounter Date Encounter Type Care Provider Facility Start: 11-07-2023 End: 11-07-2023 Letter encounter Abundioabbie Mares DDS Work Phone: [facility] Start: 08-25-2023 End: 08-25-2023 ambulatory RODRIGUEZ VANG Not Available Start: 07-06-2023 End: 07-06-2023 ambulatory [facility] Work Phone: Start: 07-06-2023 End: 07-06-2023 Patient encounter procedure [facility] [employer] Work Phone: Start: 01-05-2023 End: 01-05-2023 ambulatory Antionette Leonel Other [employer] Other Start: 01-05-2023 Office outpatient visit 25 minutes Antionette Leonel [facility] Start: 12-16-2022 End: 12-17-2022 ambulatory Arline M. Lue Facility:[facility] Start: 12-16-2022 End: 12-16-2022 Patient encounter procedure Arline M. Lue [facility] Start: 08-04-2022 End: 08-04-[address] AFM VENTURA Facility:[facility] Start: 07-29-2022 End: 08-02-2022 Evaluation and management of inpatient DR FAM VENTURA Facility:[facility] Start: 07-26-2022 End: 07-27-[address] FAM VENTURA Facility:[facility] Start: 07-23-2022 End: 07-24-2022 ambulatory FAM VENTURA Facility:[facility] Start: 07-23-2022 End: 07-23-2022 Patient encounter procedure FAM VENTURA [facility] Start: 06-23-2022 End: 06-23-2022 ambulatory Antionette Leonel Other [employer] Other Start: 06-23-2022 Office outpatient visit 25 minutes Antionette Leonel [facility] Start: 06-03-2022 End: 06-04-[address] FAM VENTURA Facility:[facility] Start: 05-08-2022 Letter encounter Abundio Blancobeatrice ACEVES Work Phone: [facility] Start: 04-22-2022 End: 04-23-[address] FAM VENTURA Facility:[facility] Start: 03-19-2022 End: 03-20-[address] FAM VENTURA Facility:[facility] Start: 03-10-2022 End: 03-11-[address] FAM VENTURA Facility:[facility] Start: 01-24-2022 End: 01-24-[address] DIAMOND BURGER . Facility:[facility] Start: 01-18-2022 End: 01-18-2022 ambulatory ANJELICA DOLL . Facility:[facility] Start: 01-13-[address] [facility] Start: 01-12-2022 End: 01-13-[address] RODRIGUEZ VANG Facility:[facility] Start: 01-06-2022 End: 01-07-[address] FAM VENTURA Facility:[facility] Start: 12-23-2021 End: 12-23-2021 ambulatory Antionette Castaneda Other [employer] Other Start: 12-23-2021 Office outpatient visit 25 minutes Antionette Leonel [facility] Start: 12-16-2021 End: 12-17-2021 [facility]ulatory [facility] Start: 12-16-2021 End: 12-17-2021 Patient encounter procedure Mora Powell [facility] Work Phone: [facility] Start: 12-10-2021 End: 12-10-2021 Patient encounter procedure Arline Levine [facility] Start: 11-20-2021 End: 11-21-[address] FAM VENTURA Facility:[facility] Start: 11-13-2021 End: 11-14-2021 ambulatory ARLINE Duenas Facility:[facility] Start: 10-31-2021 End: 11-01-[address] FAM VENTURA Facility:[facility] Start: 10-22-2021 End: 10-22-2021 Patient encounter procedure Arline Levine [facility] Start: 10-21-2021 End: 10-21-[address] FAM VENTURA Facility:[facility] Start: 09-29-2021 End: 09-29-[address] FAM VENTURA Facility:[facility] Start: 09-22-2021 End: 09-22-2021 ambulatory ABBI SANCHEZ Facility:[facility] Plan of Treatment Date Care Activity Detail Author Start: 02-01-2030 Shingles (RZV) Vacci ne (1 of 2) Shingles (RZV) Vaccine (1 of 2) [facility] Start: 01-18-2024 Influenza vaccination Influ[facility] in[facility] Start: 12-18-2022 COVID-19 Vaccine ( season) COVID-19 Vaccine ( season) [facility] Start: 01-17-2022 Influenza vaccination Influenza Vacc ine (#1) [facility] Start: 02-01-2015 Lipid panel Cholesterol [facility] Start: 05-20-2012 Annual wellness visit Annual W ellness Visit ([id number]) [facility] Start: 02-01-2007 HPV Vaccine (optiona l start 27-45 years) HPV Vaccine (optional start 27-45 years) [facility] Start: 02-01-1999 Hepatitis A (HAV) Va ccine (optional start 19+ years) Hepatitis A (HAV) Vaccine (optional start 19+ years) [facility] Start: 02-01-1999 Hepatitis B vaccination Hepati tis B (HBV) Vaccine (1 of 3 - 19+ 3-dose series) [facility] Start: 02-01-1998 Hepatitis C screening Hepatitis C An tibody [facility] Start: 02-01-1998 Tetanus + diphtheria + acellular pertussis vaccine (product) [facility] Start: 02-01-1995 HIV screening HIV Test [facility] Start: 1980 COVID-19 Vaccine (#1) COVID-19 Vacci ne (#1) [facility] Immunizations Immunization Date Immunization Notes Care Provider Lucero ibrahim 03-04-2020 pneumococcal conjuga te vaccine, 13 valent Mora Urmetz [facility] Work Phone: [facility] 01-26-2018 influenza, injectabl e, quadrivalent, preservative free Mora Urmetz [facility] Work Phone: [facility] 01-26-2018 influenza virus vaccine, unspecified formulation Mora Urmetz [facility] Work Phone: [facility] 02-10-2017 influenza virus vaccine, unspecified formulation Arline Levine [facility] 02-10-2017 influenza, injectabl e, quadrivalent, contains preservative Mora Urmetz [facility] Work Phone: [facility] 02-07-2015 influenza virus vaccine, unspecified formulation Arline Levine [facility] 02-07-2015 influenza, injectabl e, quadrivalent, preservative free Mora Urmetz [facility] Work Phone: [facility] 10-23-2014 pneumococcal polysaccharide vaccine, 23 valent Mora Urmetz [facility] Work Phone: [facility] 12-31-2010 influenza virus vaccine, unspecified formulation Arline Lukaren [facility] 12-31-2010 influenza, seasonal, injectable Mora Urmetz [facility] Work Phone: [facility] 03-06-2009 novel [id number], preservative-free, injectable Mora Urmetz [facility] Work Phone: [facility] 02-09-2008 influenza virus vaccine, whole virus Mora Urmetz RD Work Phone: [facility] 02-09-2008 influenza, whole Arline Lue [facility] NEGATED: Highlighted row has not occurred!12-10-2021 SARS-CoV-2 mRNA (tozinameran 5y-11y) vaccine Arline Lue [facility] Payers Date Payer Category Payer Medicaid [id number] 2011 Medicare MEDICARE MEDICAR E PART A & B [id number] 2011-Present [address] [place] [address] Medicare [id number] 1980 Unknown [id number] [id number]2 1980 Unknown [id number] 2.16.840.1.576482.3.579.2.593 1980 Unknown [id number] 2.16.840.1.905480.3.579.2.593 1980 Unknown [id number] 2.16.840.1.324071.3.579.2.593 1980 Unknown [id number] 2.16.840.1.222106.3.579.2.593 1980 Unknown [id number] 2.16.840.1.383794.3.579.2.727 1980 Unknown [id number] 2.16.840.1.987121.3.579.2.727 1980 Unknown [id number] 2.16.840.1.781783.3.579.2.1259 1959 Medicaid [id number] 1959 Medicare [id number] 2.16.840.1.183448.19 1953 Unknown [id number] 2.16.840.1.328001.3.579.2.593 1953 Unknown [id number] 2.16.840.1.122324.3.579.2.593 1953 Unknown [id number] 2.16.840.1.410241.3.579.2.593 1953 Unknown [id number] 2.16.840.1.886266.3.579.2.593 1953 Unknown [id number] 2.16.840.1.066619.3.579.2.593 1953 Unknown [id number] 2.16.840.1.839552.3.579.2.593 1953 Unknown [id number] 2.16.840.1.913298.3.579.2.593 1953 Unknown [id number] 2.16.840.1.954665.3.579.2.593 1953 Unknown [id number] 2.16.840.1.263266.3.579.2.593 1953 Unknown [id number] 2.16.840.1.940024.3.579.2.593 1953 Unknown [id number] 2.16.840.1.300581.3.579.2.593 1953 Unknown [id number] 2.16.840.1.568147.3.579.2.593 1953 Unknown [id number] 2.16.840.1.275955.3.579.2.593 1953 Unknown [id number] 2.16.840.1.282161.3.579.2.593 Self-pay Self Pay [id number] Social History Date Type Detail Facility Tobacco smoking status No Smoking Status Entered [facility] Sex Assigned At Male [facility] Start: 03-28-2020 Tobacco smoking status NHIS Tobacco smoking consumption unknown [facility] Start: 1980 [facility] Tobacco smoking status No Smoking Status Entered [facility] Start: 12-16-2022 Tobacco smoking status Never smoked tobacco (finding) [facility] Tobacco smoking status Never [facility] Start: 1980 Sex Assigned At Male F [facility] Functional Status Date Assessment Result Facility 12-16-2022 Functional Status N/A [facility] 12-10-2021 Functional Status N/A [facility] 10-22-2021 Functional Status N/A [facility] Clinical Notes 10-22-2021 to 01-05-2023 Note Date & Type Note Facility 01-05-2023 Evaluation note Encounter Date Diagnosis Assessment Notes Dec, COPD (chronic obstructive pulmonary disease) (ICD-10 - J44.9) [employer] [employer] Other 08-30-2023 Hospital Discharge instructions Patient Education [...] provider. Document Revised: 08/14/2021 Document Reviewed: 08/14/2021 [employer] Patient Education 2022 [employer]. Follow Up Care 12/10/2021 11:51:23 With:Abner BYRNE, JUNIOR [place], [facility] Address: When: Unknown Comments:PRN [facility] 03-07-2023 Evaluation note* Encounter Date Diagnosis Assessment Notes Treatment Notes Treatment Clinical Notes Jun, COPD (chronic obstructive pulmonary disease) (ICD-10 - J44.9) Continue with respiratory regemin, including VEST therapy, as you currently are doing. Call office with respiratory questions or concerns. [employer] Other 09-06-2022 Evaluation note* Encounter Date Diagnosis Assessment Notes Treatment Notes Treatment Clinical Notes Dec, COPD (chronic obstructive pulmonary disease) (ICD-10 - J44.9) Continue with VEST therapy twice a day. Ok to increase to TID if needed. [employer] Other 08-30-2022 NotePt presented today for OR evaluation. Limited eval was completed. Pt's case is not urgent updated contact information and placed Pt on OR list. Step by step process for OR flyer was given to caregiver. Please wait for phone call from OR coordinator.[employer] [id number] Instructions* Patient Instructions * Mora Powell [facility] - 12/16/2021 11:57 AM EDT Pt presented today for OR evaluation. Limited eval was completed. Pt's case is not urgent updated contact information and placed Pt on OR list. Step by step process for OR flyer was given to caregiver. Please wait for phone call from OR coordinator. documented in this [id number] History of Present illness Narrative* Mora Powell RDH - 12/16/2021 11:42 AM EDT ----- Thursday, December 16, 2021 at 12:03:50 PM ----- ----- Provider: [id number] Heriberto Powell Hygienist -- Clinic: [place] ----- ON LICENSE OF [facility], Pt is ready for tx. Pt presented for dental evaluation for future OR. Caregiver in the room. Patient is non-verbal. Severe intellectual disability, seizure disorder Caregiver stated patient is not pain and no complaining. Radiograph taken today: no possible due to patient behavior Case requested for OR. Guardian mother Katia Lopez. [phone]. [facility] [phone] [id number] [id number] ( [facility] AVS printed and handed flyer for step by step instruction of OR process to Caregiver exam By: Elliott Ham [facility]. OR ----- Signed on Thursday, December 16, 2021 at 12:18:18 PM ----- ----- Provider: [id number] Heriberto Adams DDS -- Clinic: [place] ----- documented in this [id number] Hospital Discharge instructions Patient Education 12/10/2021 11:47:35 [...] nerve stimulation). For women, using a medical management trainer to prevent urine leaks. This is a [...] right after experiencing incontinence. General instructions Take lrgi-vky-epggncp and prescription medicines only as told by [...] 05/13/2005 Document Revised: 04/15/2018 Document Reviewed: 07/15/2017 [employer] Patient Education [employer]. Follow Up Care 10/22/2021 11:38:20 With:Abner BYRNE, JUNIOR Hawk, URO Address: When:1 year Comments:W/ renal US [facility] 07-06-2022 Hospital Discharge instructions Patient Education [...] nerve stimulation). For women, using a medical management trainer to prevent urine leaks. This is a [...] right after experiencing incontinence. General instructions Take edjg-glb-rhijjbq and prescription medicines only as told by [...] 05/13/2005 Document Revised: 04/15/2018 Document Reviewed: 07/15/2017 [employer] Patient Education 2020 [employer]. 10/22/2021 11:42:30 Renal Mass Renal Mass A [...] provider gives to you. In general: Take wvdo-ohy-zytyimf and prescription medicines only as told by [...] 10/31/2014 Document Revised: 05/12/2018 Document Reviewed: 05/12/2018 [employer] Patient Education 2020 [employer]. Follow Up Care 09/22/2021 14:10:46 With:Arline Levine MD, URL, URO Address: When:1 month [facility] evaluation + Plan note Future Appointments Appointment Date:11/19/2021 10:00:00 AM Scheduled Provider:Arline Levine MD Location:[facility] Appointment Type:URO Office Visit [facility] evaluation + Plan note Future Appointments Appointment Date:12/16/2022 10:15:00 AM Scheduled Provider:Arline Levine MD Location:[facility] Appointment Type:URO Office Visit [facility] evaluation note* Diagnosis Onset Date Resolution Status COPD (chronic obstructive pulmonary disease) acute Severe intellectual disability [facility] Work Phone: Hisdztv general Narrative - Reported* Type Description Date Medical History Mental retardation Medical History Seizure Disorder Medical History Tristen Syndrome Medical History ADD Medical History Hypothyroidism Medical History Spastic Quadraparesis Medical History Osteoporosis Medical History Tristen-Beuren syndrome Medical History Seizure disorder Medical History Seizure disorder Medical History COPD Surgical History VNS REPLACED 2021 [employer] Other Hospital course Narrative No data available for this section [facility] Discharge instructions No data available for this section [facility] No data available for this section [facility] Summary Purpose Family History No Family [...] Care Team (unrecognized sect ion and content) 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 Relationship Specialty Start Date End Date Abundio Mares DDS [address] [place] [id number] Resident Dentistry 02/23/20 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 Relationship Specialty Start Date End Date Abundio Mares DDS [address] [place] [address] Resident Dentistry 02/23/20 Team Status: Active Member Role Status Dates Fam Ventura , DO Primary Care Provider Active Team Status: Inactive Member Role Status Dates Fam Ventura , Primary Care Provider Active Start: July 06, 2023 End: July 06, 2023 Antionette Castaneda APRN ACN- Attending Provider Active Start: July 06, 2023 End: July 06, 2023 [employer] 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 Relationship Specialty Start Date End Date Abundio Mares DDS [address] [place] [address] Resident Dentistry 02/23/20 (unrecognized sect ion and content) No Status Records FoundNo Status Records FoundNo Status Records FoundNo Status Records Found INFORMATION SOURCE (unrecogn ized section and content) DATE CREATED AUTHOR 12/18/2021 [employer] DATE CREATED AUTHOR AUTHOR'S ORGANIZ ATION 08/05/2022 [facility] DATE CREATED AUTHOR AUTHOR'S ORGANIZ ATION 01/26/2023 [facility] DATE CREATED AUTHOR AUTHOR'S ORGANIZ ATION 08/27/[address] [facility] EPIC REASON FOR VISIT (unrecogniz ed [...] BE BASED ON THE PRIMARY CLINICAL RECORDS. [facility] provides no warranty or guarantee of the accuracy or completeness of information in this document.
[2023-12-07 07:51] LABS: Ammonia 40 umol/L (11-32)
== END 2023-12-07 07:24 | disposition home or self-care (01) ==
LOC: LAB 07:23
PROVIDERS: PCP Family Medicine; Visit Provider Family Medicine
DX: Z79.899 Other long term (current) drug therapy (principal); K76.82 Hepatic encephalopathy
CPT/HCPCS: 36415; 82140

== ENCOUNTER 2024-02-08 08:42 | Outpatient (OUT) | payer MEDICARE, MEDICAID, SELFPAY ==
[2024-02-08 09:03] LABS: Ammonia 16 umol/L (11-32)
== END 2024-02-08 08:43 | disposition home or self-care (01) ==
LOC: LAB 08:44
PROVIDERS: PCP Family Medicine; Visit Provider Family Medicine
DX: R79.89 Other specified abnormal findings of blood chemistry (principal); K76.82 Hepatic encephalopathy
CPT/HCPCS: 36415; 82140

== ENCOUNTER 2024-02-29 09:25 | Outpatient (OUT) | payer MEDICARE, MEDICAID, SELFPAY ==
--- NOTE | 2024-02-29 09:27 | XR_ITS ---
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 TECHNIQUE: Dual-energy X-ray absorptiometry (DEXA) bone density study performed for the axial skeleton. FINDINGS: Bone mineral density MR Spine L1-L4 measures 1.362 g/sq cm. T score 1.2. Normal Lowest bone mineral density left femoral neck measures 0.738 g/sq cm. T score -2.6. Osteoporosis XR/XR DEXA axial skeleton IMPRESSION: Osteoporosis 10 year fracture risk not reported because T score below -2.5 Pharmacologic treatment recommendations * No uniform recommendation applies to all patients. Management plans must be individualized. * Consider initiating pharmacologic treatment in postmenopausal women and men >= 50 years of age who have the following: Primary fracture prevention: * T-score <= - 2.5 at the femoral neck, total hip, lumbar spine, 33% radius (some uncertainty with existing data) by DXA. * Low bone mass (osteopenia: T-score between - 1.0 and - 2.5) at the femoral neck or total hip by DXA with a 10-year hip fracture risk >= 3% or a 10-year major osteoporosis-related fracture risk >= 20% (i.e., clinical vertebral, hip, forearm, or proximal humerus) based on the [place]-adapted FRAXregistered model. Secondary fracture prevention: * Fracture of the hip or vertebra regardless of BMD [4, 5]. * Fracture of proximal humerus, pelvis, or distal forearm in persons with low bone mass (osteopenia: T-score between - 1.0 and - 2.5). The decision to treat should be individualized in persons with a fracture of the proximal humerus, pelvis, or distal forearm who do not have osteopenia or low BMD [12, 13]. Jovon MS, Tae SL, Soledad KL, Ritesh EM, Maria Elena KG, AJ, Jessee ES. The clinician's guide to prevention and treatment of osteoporosis. Osteoporos Int. 2021;33(10):0916-0088. doi: 10.1007/f68870-650-11235-i. Epub 2021Aug 14. Erratum in: Osteoporos Int. 2021Nov 13;: PMID: [id number]; PMCID: [id number]. Electronically authenticated by: ANICETO ALICEA Date: 03/01/2024 14:19
--- OUTSIDE RECORDS SUMMARY | 2024-02-29 09:56 | XMS_ITS | CCD ---
Author Organization [facility] CliniSydc Care Team Providers Care Research Hydraulic Engineer Name Role Phone FAM VENTURA Primary Care Physician [phone] PROVIDER, UNKNOWN Attending Unavailable PROVIDER, UNKNOWN Admitting Unavailable Vishnu ACEVES Abundio Unavailable Antionette Castaneda Unavailable LORENZO, DR FAM [...] Primary Care Unavailable LOYA ., DR BRIDGET Foster Consulting Unavailable LOYA ., DR BRIDGET Foster Attending Unavailable LOYA ., DR BRIDGET Foster Admitting Unavailable NADERER, DR CHELE Duran Consulting Unavailable ALICE .IDRIS Consulting Unavailsusan BURGER ., DR FIELDS Consulting Unavailable TROTTOrlin, MALKA Consulting Unavailable RILEY, SOPHIA Consulting Unavailable JBARAGURJIT Consulting Unavailable VENTURA, DR FAM Duran Primary Care Unavailable NADERER, DR CHELE Duran Consulting Unavailable NADERER, DR CHELE Duran Attending Unavailable NADERER, DR CHELE Duran Admitting Unavailable ANICETO GARCIA Consulting Unavailable DIAB ., EMIL Consulting Unavailable TAJ, DR FRAIS Admitting Unavailable TAJ, DR FRIAS Attending Unavailable [...] Care Unavailable CRISTI .PARISH Attending Unavailable CRISTI .PARISH Admitting Unavailable ALICE .IDRIS Consulting UnavailGUANAKITO Redd Consulting Unavailable SHARMILA ., ANJELICA Consulting Unavailable SHARMILA .ANJELICA Attending Unavailable VENTURA, DR FAM Duran Primary Care Unavailable SHARMILA .ANJELICA Admitting Unavailable HAY ., DR FIELDS Consulting Unavailable HAY ., DR FIELDS Attending Unavailable VENTURA, DR FAM Duran Primary Care Unavailable HAY ., DR FIELDS Admitting Unavailable Klipper, Aniceto Consulting Unavailable LueArline Attending Unavailable VENTURA, FAM Referring Unavailable VENTURA, FAM Attending Unavailable VENTURA, FAM Admitting Unavailable TAJ, RODRIGUEZ Attending Unavailable Vishnu DDBassam, Abundio Unavailable Allergies Allergy Classification Reported Allergen(s) Allergy Type Date of Onset Reaction(s) Facility (8 sources) Amoxicillin / Clavulanate; Translations: [amoxicillin-clav ulanate] Drug Allergy Unknown [facility] (10 sources) Phenytoin; Translations: [phenytoin] Drug Allergy 01-06-20 23 Unknown, Unknown Reaction [facility] (14 sources) Promethazine; Translations: [promethazine] Drug Allergy 05-12-19 17 Unknown, Unknown Reaction [facility] (4 sources) Phenytoin; Translations: [PHENYTOIN SODIUM EXTENDED] Drug Allergy 05-12-19 17 [facility] (4 sources) AMOXICILLIN-POT CLAVULANATE; Translations: [AMOXICILLIN-POT CLAVULANATE] Propensity to adverse reactions to drug (disorder) 05-12-19 17 [facility] (1 source) 4-Aminobenzoic Acid Drug Allergy [facility] (1 source) Amoxicillin / Clavulanate Drug Allergy 05-29-19 14 [facility] (1 source) Levamisole Drug Allergy 05-29-19 14 [facility] (1 source) metroNIDAZOLE Drug Allergy [facility] (1 source) Phenytoin Drug Allergy 05-29-19 14 [facility] (1 source) remdesivir (investigational use) Drug allergy (disorder) [facility] (2 sources) Amoxicillin Drug Allergy 01-06-20 23 Unknown Reaction [facility] (1 source) Clavulanate Drug Allergy 01-06-20 23 Unknown Reaction [facility] Medications Current Medications Medication Drug Class(es) Dates Sig (Normalized) Sig (Original) Acetaminophen (8 sources) Start: 12-16-2022 acetaminophen Refills(s) 0 Start Date: 12/16/22 Status: Ordered Start: 03-28-2020 Acetaminophen Active 650 MG UT EVERY 4-6 HOURS March 28, 2020 1:00am Start: 03-28-2020 End: 07-06-2023 take 650 mg by mouth every four to six hours Acetaminophen Discontinued 650 MG PO EVERY 4-6 HOURS March 28, 2020 1:00am July 06, 2023 9:30am take 1 tablet by rebecca th every six hours as needed Acetaminophen 325 MG 1 tablet as needed Orally every 6 hrs Active albuterol 0.83 mg/ml inhalation solution (10 sources) beta2-Adrenergic Agonist Start: 06-28-2023 take 2.5 [...] / ipratropium bromide 0.167 mg/ml inhalation solution (5 sources) Anticholinergic, beta2-Adrenergic Agonist Start: 03-28-2020 take [...] Active alendronic acid 70 mg oral tablet (12 sources) Bisphosphonate Start: 07-04-2015 take 70 mg [...] Start Date: 10/22/21 Status: Ordered Ascorbic Acid (9 sources) Vitamin C Start: 10-22-2021 Vitamin C Toby y, Refills(s) 0 Start Date: 10/22/21 Status: Ordered Start: 03-28-2020 End: 07-06-2023 take 1 tablet by mouth twice daily Ascorbic Acid (Vitamin C) (Vitamin C) 500 mg Tablet Discontinued 500 MG PO Twice daily March 28, 2020 1:00am July 06, 2023 10:23am take 1 tablet by rebecca th every twenty-four hours Vitamin C 500 MG 1 tablet Orally Once a day Active atorvastatin 10 mg oral tablet (12 sources) HMG-CoA Reductase Inhibitor Start: 07-04-2015 take 10 mg by mouth once daily at bedtime Atorvastatin Active 10 MG PO Daily at bedtime March 28, 2020 1:00am azelastine hydrochloride 0.137 mg/actuat metered dose nasal spray (7 sources) Histamine-1 Receptor Antagonist Start: 06-28-2023 take [...] Status: Ordered benzonatate 100 mg oral capsule (5 sources) Non-narcotic Antitussive Start: 03-28-2020 take 100 mg by mouth every eight hours Benzonatate Active 100 MG PO Q8H March 28, 2020 1:00am take 1 capsule by mo uth every eight hours Benzonatate 100 MG 1 capsule as needed Orally Three times a day Active budesonide 0.25 mg/ml inhalation suspension (6 sources) Corticosteroid Start: 06-28-2023 take 0.5 mg [...] mg / cholecalciferol 200 unt oral tablet (3 sources) Vitamin D Start: 03-28-2020 take 1 [...] 02/29/2020 Active cloBAZam 10 mg oral tablet (12 sources) Benzodiazepine Start: 07-04-2015 take 10 mg by mouth twice daily Clobazam Active 10 MG PO Twice daily March 28, 2020 1:00am clonazePAM 0.25 mg disintegrating oral tablet (5 sources) Benzodiazepine Start: 03-28-2020 Clonazepam Active 0.25 MG TRANSLINGU Twice daily March 28, 2020 1:00am Cough and Chest Congestion (4 sources) Start: 10-22-2021 Cough and Chest Congestion Refill(s) 0 Start Date: 10/22/21 Status: Ordered diazePAM 10 mg oral tablet (11 sources) Benzodiazepine Start: 10-22-2021 take 1 mg rectal route once Diastat AcuDial adult mg, Rectal, Once, Refills(s) 0 Start Date: 10/22/21 Status: Ordered Start: 03-28-2020 End: 07-06-2023 apply 10 mg rectal route every two hours Diazepam Active 5 MG PO Q2H July 06, 2023 10:24am 10MG RECTAL GEL, PATIENT TAKES IT UT - wont let me save without route. Start: 07-05-2015 diazepam 10 mg , Rectal, PRN Seizure, Refills(s) 0 Start Date: 07/05/15 Status: Ordered docusate sodium 100 mg oral capsule (9 sources) Start: 10-22-2021 take 1 capsule by [...] 2020 1:00am take 1 capsule by mo [facility] every twenty-four hours Docusate Sodium 100 [...] Status: Ordered felbamate 400 mg oral tablet (12 sources) Anti-epileptic Agent Start: 02-23-2020 take 400 [...] fluticasone furoate 0.05 MG/ACTUAT Dry Powder Inhaler (12 sources) Corticosteroid Start: 10-22-2021 fluticasone furoate 50 [...] day Active furosemide 20 mg oral tablet (12 sources) Loop Diuretic Start: 02-23-2020 take 20 mg by mouth once daily Furosemide Active 20 MG PO Daily March 28, 2020 1:00am glycopyrrolate 1 mg oral tablet (9 sources) Start: 10-22-2021 take 1 tablet by mouth three times daily glycopyrrolate 1 mg oral tablet mg tab(s), Oral, TID, Refills(s) 0 Start Date: 10/22/21 Status: Ordered Start: 03-28-2020 take 1 mg by mouth t wice daily Glycopyrrolate Active 1 MG PO Twice daily March 28, 2020 1:00am guaiFENesin 400 mg oral tabl et (3 sources) Start: 12-16-2022 guaifenesin 40 0 mg [...] Status: Ordered ketoconazole 20 mg/ml topical cream (6 sources) Azole Antifungal Start: 07-05-2015 Ketoconazole Active 1 APPLIC TOPICAL Twice daily March 28, 2020 1:00am lactulose 667 mg/ml oral solution (15 sources) Osmotic Laxative Start: 10-22-2021 Enulose 10 [...] day Active levETIRAcetam 750 mg oral tablet (12 sources) Start: 03-28-2020 take 1500 mg by mouth twice daily Levetiracetam Active 1500 MG PO Twice daily March 28, 2020 1:00am Start: 07-04-2015 levetiracetam (KEPPRA) 750 MG tablet 02/23/2020 Active take 2 tablets by mo [facility] in the morning, then take 3 tablets by mouth at bedtime levETIRAcetam 500 mg 2 tablet in am and 3 tabs at hs Orally As Directed Active levothyroxine sodium 0.1 mg oral tablet (19 sources) l-Thyroxine Start: 06-28-2023 take 150 ug [...] 07/04/15 Status: Ordered take 1 tablet by [facility] every twenty-four hours Levothyroxine Sodium 150 MCG 1 tablet Orally Once a day Active linaclotide 0.145 mg oral capsule (13 sources) Guanylate Cyclase-C Agonist Start: 12-16-2022 Linzess 145 mcg oral capsule Start Date: 12/16/22 Status: Ordered Start: 02-23-2020 take 1 capsule by mo [facility] once daily in the morning Linaclotide (Linzess) 145 mcg capsule Active 145 MCG PO Every morning March 28, 2020 1:00am Start: 07-05-2015 Linzess 145 mi crogram, Oral, Daily, PRN Constipation, Refills(s) 0 Start Date: 07/05/15 Status: Ordered Linzess 145 145m cg 1 PO Every AM Active loratadine 10 mg oral tablet (1 source) Start: 12-16-2022 loratadine 10 mg Tab Start Date: 12/16/22 Status: Ordered 24 hr loratadine 10 mg / pseudoephedrine sulfate 240 mg extended release oral tablet (7 sources) alpha-Adrenerg ic Agonist Start: 03-28-2020 End: 06-28-2023 take 1 tablet by mouth once daily, then take 1 tablet by mouth every twenty-four hours Loratadine-Pseudo ephedrine (Allergy Relief D-24hr) 10-240 mg tablet extended release 24 hr Active 1 TAB PO Daily June 28, 2023 12:00am magnesium oxide 400 mg oral tablet (6 sources) Start: 03-28-2020 magnesium oxid e 400 mg Tab Start Date: 12/16/22 Status: Ordered melatonin 5 mg oral tablet (6 sources) Start: 03-28-2020 take 5 mg by mouth once daily at bedtime Melatonin Active 5 MG PO Daily at bedtime March 28, 2020 1:00am metoprolol tartrate 50 mg oral tablet (5 sources) beta-Adrenergi c Rachelle Start: 06-28-2023 take 1 tablet by [...] Status: Ordered montelukast 10 mg oral tablet (9 sources) Leukotriene Receptor Antagonist Start: 03-28-2020 take 10 mg by mouth once daily at bedtime Montelukast Active 10 MG PO Daily at bedtime March 28, 2020 1:00am Multivitamin preparation (5 sources) Start: 03-28-2020 take 1 tablet [...] Ordered Normal saline (7 sources) Start: 07-05-2015 [place] Saline Alpa al Gel Nasal, TID, Refill(s) 0, Dry nasal passages Start Date: 07/05/15 Status: Ordered [place] Saline Nasal Gel Nasally Active omeprazole 40 mg delayed release oral capsule (12 sources) Proton Pump Inhibitor Start: 02-23-2020 take 40 mg by mouth once daily Omeprazole Active 40 MG PO Daily March 28, 2020 1:00am OXcarbazepine 600 mg oral tablet (20 sources) Anti-epileptic Agent Start: 06-28-2023 take 300 mg by mouth twice daily Oxcarbazepine Active 300 MG PO Twice daily June 28, 2023 1:14pm Start: 02-23-2020 End: 06-28-2023 take 300 mg [...] bid, Prophylaxis Start Date: 07/05/15 Status: Ordered [id number] oral powder for reconstitution (1 source) Start: 023 [id number] oral powder for reconstitution Start Date: 12/16/22 Status: Ordered polyethylene glycol 3350 62902 mg powder for oral solution (4 sources) [...] 0 Start Date: 10/22/21 Status: Ordered sennosides, assisted 8.6 mg oral tablet (2 sources) Start: take 2 tablets by mouth twice daily Sennosides (Senna) 8.6 mg Tablet Active 17.2 MG PO Twice daily March 28, 2020 1:00am sertraline 25 mg oral tablet (5 sources) Serotonin Reuptake Inhibitor Start: 024 take 25 mg by mouth once daily Sertraline Active 25 MG PO Daily June 28, 2023 12:00am take 1 tablet by rebecca every twenty-four hours Sertraline HCl 25 MG 1 tablet Orally Onc e a day Active Sodium Chloride-Aloe Vera ([place] Saline) gel (2 sources) Start: 06-28-2023 Sodium Chlorid e-Aloe Vera ([place] Saline) gel Active 1 APPLIC TOPICAL Daily at bedtime June 28, 2023 12:00am tamsulosin hydrochloride 0.4 mg oral capsule (9 sources) alpha-Adrenergi c Rachelle Start: 07-04-2015 take 0.4 mg by mouth once daily Tamsulosin Active 0.4 MG PO Daily March 28, 2020 1:00am Vitamin D3 5000 intl units oral capsule (1 source) Start: 08-30-2023 Vitamin D3 500 0 intl units oral capsule Start Date: 12/16/22 Status: Ordered Completed/Discontinued Medications Medication Drug Class(es) Dates Sig (Normalized) Sig (Original) acetylcysteine 100 mg/ml inhalation solution (2 sources) Antidote, Mucolytic, Antidote for Acetaminophen Overdose Start: 03-28-2020 End: 07-06-2023 take 1 mL by inhalation every four hours Acetylcysteine Discontinued 2 ML INHALATION Q4H March 28, 2020 1:00am July 06, 2023 10:22am levoFLOXacin 750 mg oral tablet (2 sources) Quinolone Antimicrobial Start: 03-28-2020 End: 06-28-2023 take 750 mg by mouth once daily Levofloxacin Discontinued 750 MG PO Daily March 28, 2020 1:00am June 28, 2023 1:09pm Polyethylene Glycol 3350 (Clearlax) 17 gram/dose Powder (2 sources) Start: 03-28-2020 End: 07-06-2023 Polyethylene Glycol 3350 (Clearlax) 17 gram/dose Powder Discontinued 17 GM PO Daily March 28, 2020 1:00am July 06, 2023 10:26am Start: 03-28-2020 Polyethylene G lycol 3350 (Clearlax) 17 gram/dose Powder Active 17 GM PO Daily March 28, 2020 1:00am predniSONE 20 mg oral tablet (2 sources) Start: 03-28-2020 End: 07-06-2023 take 20 mg by mouth once daily Prednisone Discontinued 20 MG PO Daily March 28, 2020 1:00am July 06, 2023 10:26am Sodium Chloride-Aloe Vera (Saline Nasal (Aloe Vera)) Gel (2 sources) Start: 03-28-2020 End: 06-28-2023 Sodium Chloride-Aloe Vera (Saline Nasal (Aloe Vera)) Gel Discontinued 2 APPLIC INTRANASAL Three times daily March 28, 2020 1:00am June 28, 2023 1:23pm divalproex sodium 125 mg delayed release oral capsule (20 sources) Mood Stabilizer, Anti-epileptic Agent Start: 06-28-2023 [...] Refills(s) 0 Start Date: 10/22/21 Status: Ordered Problems Active Problems Problem Classification Problem Date Documented Da te Episodic/Chronic Attention-deficit, conduct, and disruptive behavior disorders (6 sources) Attention deficit hyperactivity disorder, predominantly inattentive type; Translations: [Other specified behavioral and emotional disorders with onset usually occurring in childhood and adolescence] 12-16-2010 Chronic Attention-deficit, conduct, and disruptive behavior disorders (1 source) Attention-deficit hyperactivity disorder, unspecified type; Translations: [ADHD UNSPECIFIED TYPE] Onset: 08-05-2022 Chronic Chronic obstructive pulmonary disease and bronchiectasis (14 sources) Chronic obstructive lung disease; Translations: [Chronic obstructive pulmonary disease, unspecified] Onset: 12-23-2021 Resolved: 12-23-2021 Chronic Developmental disorders (12 sources) Severe intellectual disability; Translations: [Mental handicap] Onset: 02-22-2020 06-30-2013 Chronic Disorders of lipid metabolism (1 source) Hyperlipidemia, unspecified; Translations: [HYPERLIPIDEMIA UNSPECIFIED] Onset: 08-05-2022 Chronic E Codes: Adverse effects of medical drugs (1 source) Adverse effect of other antiepileptic and sedative-hypnotic drugs, initial encounter; Translations: [ADVRS EFF OTH ANTIEPI SED RX INIT] Onset: 08-05-2022 Episodic Epilepsy; convulsions (7 sources) Epilepsy, unspecified, not intractable, without status epilepticus; Translations: [Seizure disorder] Onset: 04-22-2022 Chronic Epilepsy; convulsions (8 sources) Seizure disorder; Translations: [Unspecified convulsions] Onset: 01-18-2022 06-30-2013 Episodic Esophageal disorders (3 sources) Gastro-esophageal reflux disease without esophagitis; Translations: [...] 06-30-2013 Chronic Other aftercare (5 sources) Other joint terminal attack controller (current) drug therapy; Translations: [OTH ENDLESS TRACK VEHICLE MECHANIC CURRENT DRUG THERAPY] Onset: 06-03-2022 Episodic Other [...] Onset: 01-27-2022 Episodic Other lower respiratory disease (2 sources) Wheezing; Translations: [Wheezing] 03-31-2023 Episodic Other nutritional; endocrine; and metabolic disorders (5 sources) Disorder of urea cycle metabolism, unspecified; 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] Onset: 10-31-2021 Chronic Other upper respiratory disease (2 sources) Seasonal allergy; Translations: [Other seasonal allergic rhinitis] 07-06-2023 Chronic Other upper respiratory infections (5 sources) Chronic sinusitis; Translations: [Chronic sinusitis, unspecified] [...] specified sepsis] Onset: 07-29-2022 Episodic Thyroid disorders (7 sources) Hypothyroidism; Translations: [Hypothyroidism, unspecified] Onset: 08-05-2022 [...] (oxcarbazepine 600 mg Tab) polyethylene glycol 3350 ([id number] oral powder for reconstitution) polyethylene glycol 3350 (polyethylene glycol 3350 17 gram packet) rifaximin (Xifaxan 550 mg oral tablet) senna (Senna 8.6 mg oral tablet) sodium chloride nasal ([place] Saline Nasal Gel) tamsulosin Discharge Vitals Temperature (Temporal Artery) 36.7 ?C Heart Rate (Peripheral) 84 Blood Pressure 128/78 Height 158 cm Height 62 in Weight 107.9 kg Weight 237.38 lb BMI 43.22 What to do next You Need to Schedule the Following Appointments Follow Up with Abner BYRNE, Arline Little URDominga, URO When: Comments: PRN Where: Medications What [...] (more content not included)... Normal [facility] Patient Educationon 12-17-19 Patient Education Obstetrics and [...] provider. Document Revised: 08/14/2021 Document Reviewed: 08/14/2021 [employer] Patient Education ? 2022 [employer] Normal [facility] Physician Orderon 12-16-2022 Physician Order [id number] .[id number]:127 Normal [facility] RAD - Ultrasound Reporton RAD - Ultrasound Report [id number] .[id number]:127 Normal [facility] Urology Office/Clinic Noteon 12-16-2022 Urology Office/Clinic Note [...] of retractile testes. Pt currently resides in [facility]. CBC/CMP 08/01/22 1. Retractile testis (Q55.22: [...] URL, URO Additional Instructions: PRN Patient Education Kebelkys Sue I, Makayla Todd, personally scribed for [...] Eye-Both, QID atorvastatin, 10 mg, Oral, Daily [place] Saline Nasal Gel, Nasal, TID azelastine nasal 137 mcg/inh spray, 2 spray(s), Nasal, As (more content not included)... Normal [facility] Comment on above: Result Comment: Elec tronically [...] GUANAKITO MEADE Date: 2022-08-04 18:50 Normal [facility] AMMONIAon 08-02-2022 Ammonia (P) [Moles/Vol] 87 umol/L Critically high - [facility] Comment on above: Performed By: #### B MP #### [facility] [address] [place] [address] Dr. Deepak Greenfield AMMONIAon 08-01-2022 Ammonia (P) [Moles/Vol] 42 umol/L Critically high [facility] Comment on above: Performed By: #### M Lacy, CMP #### [facility] [address] [place] [address] Dr. Deepak Greenfield CBC W MANUAL DIFFon 08-02-19 23 ATYPICAL LYMPH # 0.41 103/ul Normal [facility] Comment on above: Performed By: #### M Lacy, CMP #### [facility] [address] [place] [address] Dr. Deepak Greenfield ATYPICAL LYMPH % 7 % Normal [facility] Comment on above: Performed By: #### M G, CMP #### [facility] [address] [place] [address] Dr. Deepak Greenfield BAND # 0.0 103/ul Normal 0.0-0.3 [facility] Comment on above: Performed By: #### M G, CMP #### [facility] [address] [place] [address] Dr. Deepak Greenfield BAND % 0 % Normal 0-5 [facility] Comment on above: Performed By: #### M G, CMP #### [facility] [address] [place] [address] Dr. Deepak Greenfield BASOM # 0.00 103/ul Normal 0.00-0.10 [facility] Comment on above: Performed By: #### M G, CMP #### [facility] [address] [place] [address] Dr. Deepak Greenfield BASOM % 0.0 % Critically low 0.2-2.0 [facility] Comment on above: Performed By: #### M G, CMP #### [facility] [address] [place] [address] Dr. Deepak Greenfield BLAST # Normal [facility] Comment on above: Performed By: #### M G, CMP #### [facility] [address] [place] [address] Dr. Deepak Greenfield BLAST % Normal [facility] Comment on above: Performed By: #### M G, CMP #### [facility] [address] [place] [address] Dr. Deepak Greenfield CORRECTED WBC Normal 4.0-11.0 [facility] Comment on above: Performed By: #### M G, CMP #### [facility] [address] [place] [address] Dr. Deepak Greenfield EOS # 0.06 103/ul Normal 0.00-0.70 [facility] Comment on above: Performed By: #### M G, CMP #### [facility] [address] [place] [address] Dr. Deepak Greenfield EOS% 1.0 % Normal 0.9-7.0 [facility] Comment on above: Performed By: #### M G, CMP #### [facility] [address] [place] [address] Dr. Deepak Greenfield HCT 37.6 % Critically low 42.0-54.0 [facility] Comment on above: Performed By: #### M G, CMP #### [facility] [address] [place] [address] Dr. Deepak Greenfield HGB 12.3 g/dl Critically low 14.0-18.0 [facility] Comment on above: Performed By: #### M G, CMP #### [facility] [address] [place] [address] Dr. Deepak Greenfield LYMPHM # 1.91 103/ul Normal 1.20-3.80 [facility] Comment on above: Performed By: #### M G, CMP #### [facility] [address] [place] [address] Dr. Deepak Greenfield LYMPHM% 33.0 % Normal 20.5-60.0 [facility] Comment on above: Performed By: #### M G, CMP #### [facility] [address] [place] [address] Dr. Deepak Greenfield MCH 31.7 pg Normal 25.9-34.0 [facility] Comment on above: Performed By: #### M G, CMP #### [facility] [address] [place] [address] Dr. Deepak Greenfield MCHC 32.7 g/dl Normal 29.9-35.2 [facility] Comment on above: Performed By: #### M G, CMP #### [facility] [address] [place] [address] Dr. Deepak Greenfield MCV 96.9 fL Critically high 80.0-94.[address] [facility] Comment on above: Performed By: #### M G, CMP #### [facility] [address] [place] [address] Dr. Deepak Greenfield METAMYELOCYTE # Normal [facility] Comment on above: Performed By: #### M G, CMP #### [facility] [address] [place] [address] Dr. Deepak Greenfield METAMYELOCYTE % Normal [facility] Comment on above: Performed By: #### M G, CMP #### [facility] [address] [place] [address] Dr. Deepak Greenfield MONOM# 0.29 103/ul Critically low 0.30-0.80 [facility] Comment on above: Performed By: #### M G, CMP #### [facility] [address] [place] [address] Dr. Deepak Greenfield MONOM% 5.0 % Normal 1.7-12.0 [facility] Comment on above: Performed By: #### M G, CMP #### [facility] [address] [address] [address] Deepak Greenfield MPV 11.0 fL Normal 9.5-13.5 [facility] Comment on above: Performed By: #### M G, CMP #### [facility] [address] [address] [address] Deepak Greenfield MYELOCYTE # Normal [facility] Comment on above: Performed By: #### M G, CMP #### [facility] [address] [address] [address] Deepak Greenfield MYELOCYTE % Normal [facility] Comment on above: Performed By: #### M G, CMP #### [facility] [address] [place] [address] Dr. Deepak Greenfield NRBC Normal [facility] Comment on above: Performed By: #### M G, CMP #### [facility] [address] [place] [address] Dr. Deepak Greenfield PLT 208 103/ul Normal 150-450 [facility] Comment on above: Performed By: #### M G, CMP #### [facility] [address] [address] [address] Deepak Greenfield RBC 3.88 106/ul Critically low 4.70-6.[address] [facility] Comment on above: Performed By: #### M G, CMP #### [facility] [address] [address] [address] Deepak Greenfield RDW 12.9 % Normal 11.0-15.0 [facility] Comment on above: Performed By: #### M G, CMP #### [facility] [address] [place] [address] Dr. Deepak Greenfield SEG # 3.13 103/ul Normal 1.40-6.50 [facility] Comment on above: Performed By: #### M G, CMP #### [facility] [address] [address] [address] Deepak Greenfield SEG % 54.0 % Normal 43.0-75.0 [facility] Comment on above: Performed By: #### M G, CMP #### [facility] [address] [address] [address] Deepak Greenfield STOMATOCYTES 3+ Normal [facility] Comment on above: Performed By: #### M G, CMP #### [facility] [address] [address] [address] Deepak Greenfield WBC 5.8 103/ul Normal 4.0-11.0 [facility] Comment on above: Performed By: #### M G, CMP #### [facility] [address] [place] [address] Dr. Deepak Greenfield PROF CHEM 8 (BAS METB)on Anion gap [Moles/Vol] 16.1 mmol/L Normal [facility] Comment on above: Performed By: #### B MP #### [facility] [address] [place] [address] Dr. Deepak Greenfield Calcium [Mass/Vol] 9.3 mg/dL Normal 8.5-10.1 [facility] Comment on above: Performed By: #### B MP #### [facility] [address] [place] [address] Dr. Deepak Greenfield Chloride [Moles/Vol] 105 mmol/L Normal 98-107 [facility] Comment on above: Performed By: #### B MP #### [facility] [address] [place] [address] Dr. Deepak Greenfield CO2 [Moles/Vol] 27.6 mmol/L Normal 21.0-32.0 [facility] Comment on above: Performed By: #### B MP #### [facility] [address] [place] [address] Dr. Deepak Greenfield Creatinine [Mass/Vol] 0.96 mg/dL Normal 0.70-1.30 [facility] Comment on above: Performed By: #### B MP #### [facility] [address] [place] [address] Dr. Deepak Greenfield EGFR-AF TUNISIAN >60 Normal >=60 [facility] Comment on above: Performed By: #### B MP #### [facility] [address] [address] [address] Deepak Greenfield EGFR-NON AF TUNISIAN >60 Normal >=60 [facility] Comment on above: Performed By: #### B MP #### [facility] [address] [address] [address] Deepak Greenfield Glucose [Mass/Vol] 160 mg/dL Critically high 74-106 T [facility] Comment on above: Performed By: #### B MP #### [facility] [address] [address] [address] Deepak Greenfield Potassium [Moles/Vol] 3.7 mmol/L Normal 3.5-5.1 [facility] Comment on above: Performed By: #### B MP #### [facility] [address] [address] [address] Deepak Greenfield Sodium [Moles/Vol] 145 mmol/L Normal 136-145 [facility] Comment on above: Performed By: #### B MP #### [facility] [address] [address] [address] Deepak Greenfield Urea nitrogen [Mass/Vol] 5.0 mg/dL Critically low 7.0-18.0 [facility] Comment on above: Performed By: #### B MP #### [facility] [address] [address] [address] Deepak Greenfield Urea nitrogen/Creatinine [Mass ratio] 5.2 mg/mg Normal [facility] Comment on above: Performed By: #### B MP #### [facility] [address] [address] [address] Deepak Greenfield AMMONIAon 07-31-2022 Ammonia (P) [Moles/Vol] 94 umol/L Critically high 11-32 [facility] Comment on above: Performed By: #### M G, CMP #### [facility] [address] [address] [address] Deepak Greenfield CBC AUTO DIFFon 07-31-2022 BASO # 0.0 103/ul Normal 0.0-0.1 [facility] Comment on above: Performed By: #### B MP #### [facility] [address] [address] [address] Deepak Greenfield Basophils/100 WBC (Bld) 0.1 % Critically low 0.2-2.0 [facility] Comment on above: Performed By: #### B MP #### [facility] [address] [address] [address] Deepak Greenfiedl EO # 0.0 103/ul Normal 0.0-0.7 [facility] Comment on above: Performed By: #### B MP #### [facility] [address] [place] [address] Dr. Deepak Greenfield Eosinophils/100 WBC (Bld) 0.0 % Critically low 0.9-7.0 [facility] Comment on above: Performed By: #### B MP #### [facility] [address] [place] [address] Dr. Deepak Greenfield Erythrocyte distribution width (RBC) [Ratio] 13.1 % Normal 11.0-15.0 [facility] Comment on above: Performed By: #### B MP #### [facility] [address] [place] [address] Dr. Deepak Greenfield Hematocrit (Bld) [Volume fraction] 32.4 % Critically low 42.0-54.0 [facility] Comment on above: Performed By: #### B MP #### [facility] [address] [place] [address] Dr. Deepak Greenfield Hemoglobin (Bld) [Mass/Vol] 10.9 g/dL Critically low 14.0-18.0 [facility] Comment on above: Performed By: #### B MP #### [facility] [address] [place] [address] Dr. Deepak Greenfield IG # 0.02 10e3/ul Normal 0.00-0.03 [facility] Comment on above: Performed By: #### B MP #### [facility] [address] [place] [address] Dr. Deepak Greenfield IG % 0.3 % Normal 0.0-0.5 [facility] Comment on above: Performed By: #### B MP #### [facility] [address] [address] [address] Deepak Greenfield LYMPH # 2.7 103/ul Normal 1.2-3.8 [facility] Comment on above: Performed By: #### B MP #### [facility] [address] [place] [address] Dr. Deepak Greenfield Lymphocytes/100 WBC (Bld) 38.9 % Normal 20.5-60.0 [facility] Comment on above: Performed By: #### B MP #### [facility] [address] [place] [address] Dr. Deepak Greenfield MANUAL DIFF REQ NO Normal [facility] Comment on above: Performed By: #### B MP #### [facility] [address] [place] [address] Dr. Deepak Greenfield MCH (RBC) [Entitic mass] 32.3 pg Normal 25.9-34.0 [facility] Comment on above: Performed By: #### B MP #### [facility] [address] [place] [address] Dr. Deepak Greenfield MCHC (RBC) [Mass/Vol] 33.6 g/dL Normal 29.9-35.2 [facility] Comment on above: Performed By: #### B MP #### [facility] [address] [place] [address] Dr. Deepak Greenfield MCV (RBC) [Entitic vol] 96.1 fL Critically high 80.0-94.0 [facility] Comment on above: Performed By: #### B MP #### [facility] [address] [place] [address] Dr. Deepak Greenfield MONO # 0.3 103/ul Normal 0.3-0.8 [facility] Comment on above: Performed By: #### B MP #### [facility] [address] [place] [address] Dr. Deepak Greenfield Monocytes/100 WBC (Bld) 4.9 % Normal 1.7-12.0 [facility] Comment on above: Performed By: #### B MP #### [facility] [address] [place] [address] Dr. Deepak Greenfield NEUT # 3.9 103/ul Normal 1.4-6.5 [facility] Comment on above: Performed By: #### B MP #### [facility] [address] [place] [address] Dr. Deepak Greenfield Neutrophils/100 WBC (Bld) 55.8 % Normal 43.0-75.0 [facility] Comment on above: Performed By: #### B MP #### [facility] [address] [place] [address] Dr. Deepak Greenfield Platelet mean volume (Bld) [Entitic vol] 9.7 fL Normal 9.5-13.5 [facility] Comment on above: Performed By: #### B MP #### [facility] [address] [place] [address] Dr. Deepak Greenfield PLT 296 103/ul Normal 150-450 [facility] Comment on above: Performed By: #### B MP #### [facility] [address] [place] [address] Dr. Deepak Greenfield RBC 3.37 106/ul Critically low 4.70-6.10 [facility] Comment on above: Performed By: #### B MP #### [facility] [address] [place] [address] Dr. Deepak Greenfield WBC 7.0 103/ul Normal 4.0-11.0 [facility] Comment on above: Performed By: #### B MP #### [facility] [address] [place] [address] Dr. Deepak Greenfield PROF CHEM 8 (BAS METB)on Anion gap [Moles/Vol] 14.9 mmol/L Normal [facility] Comment on above: Performed By: #### C BC #### [facility] [address] [place] [address] Dr. Deepak Greenfield Calcium [Mass/Vol] 8.8 mg/dL Normal 8.5-10.1 [facility] Comment on above: Performed By: #### C BC #### [facility] [address] [place] [address] Dr. Deepak Greenfield Chloride [Moles/Vol] 105 mmol/L Normal 98-107 [facility] Comment on above: Performed By: #### C BC #### [facility] [address] [address] [address] Deepak Greenfield CO2 [Moles/Vol] 26.4 mmol/L Normal 21.0-32.0 [facility] Comment on above: Performed By: #### C BC #### [facility] [address] [address] [address] Deepak Greenfield Creatinine [Mass/Vol] 0.70 mg/dL Normal 0.70-1.30 [facility] Comment on above: Performed By: #### C BC #### [facility] [address] [place] [address] Dr. Deepak Greenfield EGFR-AF TUNISIAN >60 Normal >=60 [facility] Comment on above: Performed By: #### C BC #### [facility] [address] [place] [address] Dr. Deepak Greenfield EGFR-NON AF TUNISIAN >60 Normal >=60 [facility] Comment on above: Performed By: #### C BC #### [facility] [address] [place] [address] Dr. Deepak Greenfield Glucose [Mass/Vol] 129 mg/dL Critically high 74-106 [facility] Comment on above: Performed By: #### C BC #### [facility] [address] [place] [address] Dr. Deepak Greenfield Potassium [Moles/Vol] 4.3 mmol/L Normal 3.5-5.1 [facility] Comment on above: Performed By: #### C BC #### [facility] [address] [address] [address] Deepak Greenfield Sodium [Moles/Vol] 142 mmol/L Normal 136-145 [facility] Comment on above: Performed By: #### C BC #### [facility] [address] [place] [address] Dr. Deepak Greenfield Urea nitrogen [Mass/Vol] 6.0 mg/dL Critically low 7.0-18.0 [facility] Comment on above: Performed By: #### C BC #### [facility] [address] [place] [address] Dr. Deepak Greenfield Urea nitrogen/Creatinine [Mass ratio] 8.6 mg/mg Normal [facility] Comment on above: Performed By: #### C BC #### [facility] [address] [place] [address] Dr. Deepak Greenfield AMMONIAon 07-30-2022 Ammonia (P) [Moles/Vol] 64 umol/L Critically high 11-32 [facility] Comment on above: Performed By: #### C BC #### [facility] [address] [place] [address] Dr. Deepak Greenfield CBC AUTO DIFFon 07-30-2022 BASO # 0.0 103/ul Normal 0.0-0.1 [facility] Comment on above: Performed By: #### I NFLUAB #### [facility] [address] [place] [address] Dr. Deepak Greenfield Basophils/100 WBC (Bld) 0.0 % Critically low 0.2-2.0 [facility] Comment on above: Performed By: #### I NFLUAB #### [facility] [address] [place] [address] Dr. Deepak Greenfield EO # 0.0 103/ul Normal 0.0-0.7 [facility] Comment on above: Performed By: #### I NFLUAB #### [facility] [address] [place] [address] Dr. Deepak Greenfield Eosinophils/100 WBC (Bld) 0.0 % Critically low 0.9-7.0 [facility] Comment on above: Performed By: #### I NFLUAB #### [facility] [address] [place] [address] Dr. Deepak Greenfield Erythrocyte distribution width (RBC) [Ratio] 13.1 % Normal 11.0-15.0 [facility] Comment on above: Performed By: #### I NFLUAB #### [facility] [address] [place] [address] Dr. Deepak Greenfield Hematocrit (Bld) [Volume fraction] 31.4 % Critically low 42.0-54.0 [facility] Comment on above: Performed By: #### I NFLUAB #### [facility] [address] [place] [address] Dr. Deepak Greenfield Hemoglobin (Bld) [Mass/Vol] 10.5 g/dL Critically low 14.0-18.0 [facility] Comment on above: Performed By: #### I NFLUAB #### [facility] [address] [place] [address] Dr. Deepak Greenfield IG # 0.01 10e3/ul Normal 0.00-0.03 [facility] Comment on above: Performed By: #### I NFLUAB #### [facility] [address] [place] [address] Dr. Deepak Greenfield IG % 0.2 % Normal 0.0-0.5 [facility] Comment on above: Performed By: #### I NFLUAB #### [facility] [address] [place] [address] Dr. Deepak Greenfield LYMPH # 1.5 103/ul Normal 1.2-3.8 [facility] Comment on above: Performed By: #### I NFLUAB #### [facility] [address] [place] [address] Dr. Deepak Greenfield Lymphocytes/100 WBC (Bld) 27.5 % Normal 20.5-60.0 [facility] Comment on above: Performed By: #### I NFLUAB #### [facility] [address] [place] [address] Dr. Deepak Greenfield MANUAL DIFF REQ NO Normal [facility] Comment on above: Performed By: #### I NFLUAB #### [facility] [address] [place] [address] Dr. Deepak Greenfield MCH (RBC) [Entitic mass] 32.4 pg Normal 25.9-34.0 [facility] Comment on above: Performed By: #### I NFLUAB #### [facility] [address] [place] [address] Dr. Deepak Greenfield MCHC (RBC) [Mass/Vol] 33.4 g/dL Normal 29.9-35.2 [facility] Comment on above: Performed By: #### I NFLUAB #### [facility] [address] [address] [address] Deepak Greenfield MCV (RBC) [Entitic vol] 96.9 fL Critically high 80.0-94.0 [facility] Comment on above: Performed By: #### I NFLUAB #### [facility] [address] [address] [address] Deepak Greenfield MONO # 0.2 103/ul Critically low 0.3-0.8 [facility] Comment on above: Performed By: #### I NFLUAB #### [facility] [address] [place] [address] Dr. Deepak Greenfield Monocytes/100 WBC (Bld) 2.9 % Normal 1.7-12.0 [facility] Comment on above: Performed By: #### I NFLUAB #### [facility] [address] [place] [address] Dr. Deepak Greenfield NEUT # 3.8 103/ul Normal 1.4-6.5 [facility] Comment on above: Performed By: #### I NFLUAB #### [facility] [address] [place] [address] Dr. Deepak Greenfield Neutrophils/100 WBC (Bld) 69.4 % Normal 43.0-75.0 [facility] Comment on above: Performed By: #### I NFLUAB #### [facility] [address] [address] [address] Deepak Greenfield Platelet mean volume (Bld) [Entitic vol] 9.4 fL Critically low 9.5-13.5 [facility] Comment on above: Performed By: #### I NFLUAB #### [facility] [address] [address] [address] Deepak Greenfield PLT 256 103/ul Normal 150-450 [facility] Comment on above: Performed By: #### I NFLUAB #### [facility] [address] [place], [place] [address] Dr. Deepak Greenfield RBC 3.24 106/ul Critically low 4.70-6.10 [facility] Comment on above: Performed By: #### I NFLUAB #### [facility] [address] [place], [place] [address] Dr. Deepak Greenfield WBC 5.5 103/ul Normal 4.0-11.0 [facility] Comment on above: Performed By: #### I NFLUAB #### [facility] [address] [place], [place] [address] Dr. Deepak Greenfield Coding Summary.on 07-30-2022 Coding Summary. CD:[id number] W w+PGhlYWQ+HO0SCQBsQ74 ypYEuuH3kT4GRVIzAJwcw HWRIAQrFUuFhdiQoFM3gk XNjZXJu IC8+TV0sFDZaIyvteKYyk 8R0xKY4N71pid9gOWfkbL V8FXEfMlGqjurmq8cofEr 6IDcuNmluOyBt MCQpjW60NIY2aY94Qt21p TNjuYXos0vqgNc5MxIwBV BkLCB4sTqtLPuvz7KpHIQ cF81wwRQpn6J7 HIAutPjebPOoQaYzfFF8q O1jLXfseykpu4nktzwtCr m2jp19tTJry6F1fTK9A5U hknS2VQVisNDz NzftuVGMjY1qkltou4bvk xusByAkKLIyCPe8IGc1JA WonZfdYvEmRS44WSQ5UEC prwOvS9LpADCr uCagHjV3s5B5Ct2JA0TZY onlN8ADXKFAGGiprTU+PC 65yl92D4DfBjorQii1CFY xFOL8aLV4mH4a DLAgKTwdy5Y8aTX9K5Moa rQyxp0wm0plBXQrVFbvG6 6gqMXdu2B0JZYgfTZ4FME acBqyToHxiD25 Oyc+NITtnIoiy8RvIjpmm 8foi7rhyQk0KtotCIQaxw YbnSaaSYE9k3DbHi2qKNQ xcYV9cKG1rZ6v JyQwPqT3JBgtD966LfPfg NFyGkuhZ42rX8DrpZB+PH TlUrk0YUMzaYwgME6pJ7J hZGRpbmctbGVm jLpcTA2rPRGkigarRMLzf T3cQXZuB7i8NqYvPaQ5UK geF2WuYBRvprwxCt60hF3 kErTxEfS1UOkn Y5QcgcZ8CFDhfEEdIMfyC FO6Q42sx7R6AFMtWBUxBZ W2zQK8mD0yfIezpgkeqTM mdDsgdmVydGlj ZMguRWjzE227QKDtiFhwG kNvZGluZyBEYXRlOiAgMD QvMTMvMjAyMzwvdGQ+PHR oQAL1bHtmDCLe bXUxPMqjBv8fjEhvgSdhU Y1pHEUjxofqJNDgdN8rNY YnyFChpDzyYS3aNQUajba uv503PlUsZIV6 CTJcsNXcV8DlfH4cPzQnG IFeDWNgR2YsxLScOSwtU8 11PEsvBxY9AWAivzVqY3A sLWFsaWduOiB0 k1W8Lc1Pj3RqtsqzE2Pip PDnKkRmVftcWKp3O1YgCm wvdHI+OS27YVXrQG29TYh 6LBJ1gEkaYRnb ONFsG0IjwJ8pUvEbTZHnT GRkOyc+PHRhYmxlIHdpZH RoPScxMDAlJyBzdHlsZT0 qMj5mSIMiPZPw pXpzoSRiDyGre6ofZBUeD JlqCT4kdLljW6NjdWU8ME Usn6n9Vl80A38tY6RkaXZ +ZGMajQT2jPC5 dH8yBbDjZbS9WPodO492N dHloQEkIbdqw0ecq6itoV q1NfX2RZXvesKriXqwYGJ 9h5ZwNg07O62e IHdpZHRoPSIxNSUiIHZhb Ijhpi3ufP1hKy0+PGNvbC A6rZC6pT2bSbBvXgK3DHs aA491YtPlpWWl Dslst0laq1smrZw2KvVxN OWhdmWlwZisKKG9k8VjLx 23N7JllKaoh6WpFsz9zw6 7dPXyb4D7kDW7 M7QfCIGjolxuzTZhdWlcW W3nHCUbtnleNUIdvN2mDK ZbC3l4ZiUaMqJ7JTdhI6N esmX1JUSbyPTm NTTjuZTLeE1htnuwv4ymb lgzQiLrEEHaJBz8LNd3AB DkoLoyCvMdWYB3JkN3TCC 8wEEbjG7ueCfi tosakH3dRsp+ITV2kVFeq TOAWM8iZqzpyVU+PHRkIH Z6kTbuJSwlBMDxpT5hOAC gA8w5XoIgFkN6 WJbiY3UaqzG5KRQtfPLoS ECkbXBOvR1unmyqj6ltzh qxUwIlWTGjPVy7KSk2JRC saWduOiBsZWZ0 NaU2WZV0iDYqrL5etDsol xpmwL6lBvt+QmlydGggRG O2GYr7R8TqMmn0XMRjrMh hFN2hoXIwHRbx Wj5oeJlwmJgcKI2oCEXot kpsc990GnJra3beEIOcvT GjAQjbNID8P11tk8Z9UQF pFVYpQCF8iBF9 aG6ksWrjwdidpYRxaRxua sXhpYunOHcpXXrwG570FE TkxMcsSvXaIUn1Y4UzMkz 4VYIerCnzAC4n tUExNNjbDe1ffDbnkTiwJ Y5sOBBjgltyj247PxPna9 khLXTjoSNrTEbbRJZ4R76 pf3S9MQRfQTSb SDK1jWF7lU2ucDsksalwr GVmdDsgdmVydGljYWwtYW yaV831RUSvtTerAmOyeIv 4D4PbHmc6DAQc fQuvLU5twBYgYDspEk3pd CvumVckYX6wAWQicaomo0 05QtLlv4zzAUCsjRIlUKb bOSU3A02ok1N6 ARFaJUYzCPS6gSY7qF2aa GlnbjogbGVmdDsgdmVydG xaFKlfZSdeS010QAOngOs nPlBhdGllbnQg JAxyYKw4P3BpMhdqfEE+P F77LBJjDW02fGYxxMAsc5 osfMw5OhZgOEHwEQK7mDc pXHwjd7BvRBLi S42akFVty5G5TRYyuQcpj MHlKaVsnYB3pS0zSMknnv rua0muxlwfIiyrt9gozp7 8wG28L90xVBgg ZHRoPSIzMCUiIHZhbGlnb t8gkC3dIc9+KPIeuMQ6gD K4gC7fLBLtOpA2QZtwC63 9InRvcCIvPjxj i1fjk2sesCk9AiB0EQKpk qYmlNnrNMN0h6OrIe50M4 9sIHdpZHRoPSIyMCUiIHZ eyOulor9atS3b Ii8+WQYvsZT1oQP6wL2qW tDdZgY7KRglL872RiMetE PfTivwI64lS5YavQX+PHR oMts4YNCwwRvn SH6stWGiDTnvBl4lDCU7H dDbHeNfEXeuA1TmQRZwgu ccexeujTK4UBPrNMPgtL0 9Gb1mpQsgJXQd vTRYqX5dglfua2yxsjicZ yPpHODbHTx5XXt0SHQpxA dhFjArJYG5XwR3APC1oCH ygK9rdXbacxrq dH5xX6QeXNHlmfnsGz71y Z8sLpLkYoK8UZvgVzd+U0 4VIDQKVNVRJTNJMrHVSV9 1YB26wNMvh4B9 uHL0J9XoWWGggzhzndkyz SS0CDZdINIzkU10zFLcJS qfYs7mw1E5f579PYGcHAX ujV85Ec6wyAso OXQgmBRIlW4mvnebq2jni vhiDgAsZVFnWMf9AJy6CF JotVenDtTxGQH4UuA0PEB 4pFRfrM9vfRhz pqhzmU8pUab+MTAvMTYvM Nk9XOsrrEB+ABGyXUP2vD duHBcbJKLlfV4tMPYgR0z 1FoSrKeG6WUku Q3VrJILqkxzzOj32eP7oU wKjLwH7DMfzF0EvlcB1IS HchHBvTMvbAAM3B36zn9X 5WGQgAIEcYUN8 zOI3aT1ubFhxverzgSPjp DsgdmVydGljYWwtYWxpZ2 46IHRvcDsnPjQyIFllYXJ lJO02GZ84gGUi x6V7xVQ0N0RsEGIjlwihc oaxaQN8LRJcCCOfdF88gK OnCFqlNu7cl0U9r079JWD bLAKpfO57Xg5j fUkbDUOluRICpU7zltooy 8qdvwneJcAsYNNfNVs2EU q4AYOxlLepOvBtNLC0BeD 8GJT2hLWydE2r kLdaoxqcqK8uNgc+TWFsZ TwvdGQ+QTHlFXY9sTblFR fsFVQosM6fQDVrV9p0GqK cTjX3MMlrZ3Ff EUOpurwsTg11lR0fHgFnL fK1ZGmjN1ApzlD3GXWogU KjAVpxMOT0C37ta4V2YHJ bPIKaYUR5mIB5 eK0xyMcsalnrnTXegGkdi oDbpDgaPSdqYChiZ512SA YkcWlkIx58bSCpaRfijeJ 7J8LaVdgyqLM+ KO59FQEpEW97uQOfuUSgo 5vsaWe6UlOjYWWsUPV0oD uvTNyfh8LyUGVgO84nnQT de5M5ZXIckGyp zPWdHzHqhNX6eE8hDRzcx toun4xogusaAmqss3nplh 92aI06S61lZEzeWCWgXYJ zMCUiIHZhbGln ci3jbE5tNv9+APXgnDO0u LR6yN5bDoQyYzN9XIrlM1 69IvHypPIhNvusv5twa6m uqCu1GeLqAOKd mvVsqBbyCJH4j2XtSe53S 29sIHdpZHRoPSIyMCUiIH PhiIyvhk0qgF5gGs8+PC9 uw1pbgc23rE59 dHI+XHGaQVG1tJghVDmxT YDycM0lEKoeJgZ0FTHxTl IuxU57yPAlXDdlTz3lmFy hiBypVX3nHIIo ikdmz392FvOqc2gkXARcz KVoHTkjLTC7V75uy8N5WA SsMENiHCE9jOE7hC5erNl nbjogbGVmdDsg lgTeyRjaFBswQRtxX636I VCcaIhdDjCjqTBkW2alpt WMWI4kDynkhPW+PHRkIHN 0eWxlPSdwYWRk xA0lYOKzU6q2OvYmUqV8P MynK7PqevG5TILasYSvFD IxeAUOhH4lypnfd3rpdhq gIzAwMDAwMDt0 YAg2BRAopBngWrSpCQA3U oC9GCV7aSXjkM0esBqopd etiM5sWpl+RklOOjwvdGQ +CXHbCAE8wVnw MXgiDQGgyW4wHUGoS3e2I sAdTgY5IZkcO2LahaW2JA OeaKObYDJjiZTVsR1gvgm zw2ugxsheCjPu CYCzMEt1LRn2KHCluNjtI aDkSTI2XwQ5BNR3dIBdoS 1neIydegmpiO4fZzo+TVJ OOjwvdGQ+PHRk ENH9hFxaONrqGDZxsD8fC QMsW7f8VbCdThO6ACalG4 FkcvR3WNPfsPGjDQJflRQ RoI9utcafv0ze oozsKkKpKCOwIMn0LJu4F RPhfDrkSlSnDXA7AyU0PI S0iOFxeE0kpEdrziofkU3 wOyc+YFT7RMA3 FX80NU55D0JhCebplEPld +PHRhYmxlIHdpZHRoPS daHIHsKuRewAizCH4dFt5 yZGVyLWNvbGxh cHNlOiBj (more content not included)... Normal [facility] [place] PROF CHEM 8 (BAS METB)on Anion gap [Moles/Vol] 8.3 mmol/L Normal [facility] Comment on above: Performed By: #### I NFLUAB #### [facility] [address] [place] [address] Dr. Deepak Greenfield Calcium [Mass/Vol] 8.5 mg/dL Normal 8.5-10.1 [facility] Comment on above: Performed By: #### I NFLUAB #### [facility] [address] [address] [address] Deepak Greenfield Chloride [Moles/Vol] 104 mmol/L Normal 98-107 [facility] Comment on above: Performed By: #### I NFLUAB #### [facility] [address] [address] [address] Deepak Greenfield CO2 [Moles/Vol] 30.0 mmol/L Normal 21.0-32.0 [facility] Comment on above: Performed By: #### I NFLUAB #### [facility] [address] [address] [address] Deepak Greenfield Creatinine [Mass/Vol] 0.46 mg/dL Critically low 0.70-1.30 [facility] Comment on above: Performed By: #### I NFLUAB #### [facility] [address] [address] [address] Deepak Greenfield EGFR-AF TUNISIAN >60 Normal >=60 [facility] Comment on above: Performed By: #### I NFLUAB #### [facility] [address] [place] [address] Dr. Deepak Greenfield EGFR-NON AF TUNISIAN >60 Normal >=60 [facility] Comment on above: Performed By: #### I NFLUAB #### [facility] [address] [place] [address] Dr. Deepak Greenfield Glucose [Mass/Vol] 152 mg/dL Critically high 74-106 T [facility] Comment on above: Performed By: #### I NFLUAB #### [facility] [address] [place] [address] Dr. Deepak Greenfield Potassium [Moles/Vol] 4.3 mmol/L Normal 3.5-5.1 [facility] Comment on above: Performed By: #### I NFLUAB #### [facility] [address] [place] [address] Dr. Deepak Greenfield Sodium [Moles/Vol] 138 mmol/L Normal 136-145 [facility] Comment on above: Performed By: #### I NFLUAB #### [facility] [address] [place] [address] Dr. Deepak Greenfield Urea nitrogen [Mass/Vol] 9.0 mg/dL Normal 7.0-18.0 [facility] Comment on above: Performed By: #### I NFLUAB #### [facility] [address] [address] [address] Deepak Greenfield Urea nitrogen/Creatinine [Mass ratio] 19.6 mg/mg Normal [facility] Comment on above: Performed By: #### I NFLUAB #### [facility] [address] [place] [address] Dr. Deepak Greenfield AMMONIAon 07-29-2022 Ammonia (P) [Moles/Vol] 69 umol/L Critically high 11-32 [facility] Comment on above: Performed By: #### A MM #### [facility] [address] [place] [address] Dr. Deepak Greenfield CBC AUTO DIFFon 07-29-2022 BASO # 0.0 103/ul Normal 0.0-0.1 [facility] Comment on above: Performed By: #### M G, CMP #### [facility] [address] [place] [address] Dr. Deepak Greenfield Basophils/100 WBC (Bld) 0.2 % Normal 0.2-2.0 [facility] Comment on above: Performed By: #### M G, CMP #### [facility] [address] [place] [address] Dr. Deepak Greenfield EO # 0.0 103/ul Normal 0.0-0.7 [facility] Comment on above: Performed By: #### M G, CMP #### [facility] [address] [place] [address] Dr. Deepak Greenfield Eosinophils/100 WBC (Bld) 0.0 % Critically low 0.9-7.0 [facility] Comment on above: Performed By: #### M G, CMP #### [facility] [address] [place] [address] Dr. Deepak Greenfield Erythrocyte distribution width (RBC) [Ratio] 13.2 % Normal 11.0-15.0 [facility] Comment on above: Performed By: #### M G, CMP #### [facility] [address] [place] [address] Dr. Deepak Greenfield Hematocrit (Bld) [Volume fraction] 33.1 % Critically low 42.0-54.0 [facility] Comment on above: Performed By: #### M G, CMP #### [facility] [address] [place] [address] Dr. Deepak Greenfield Hemoglobin (Bld) [Mass/Vol] 10.8 g/dL Critically low 14.0-18.0 [facility] Comment on above: Performed By: #### M G, CMP #### [facility] [address] [address] [address] Deepak Greenfield IG # 0.04 10e3/ul Critically high 0.00-0.03 [facility] Comment on above: Performed By: #### M G, CMP #### [facility] [address] [address] [address] Deepak Greenfield IG % 0.5 % Normal 0.0-0.5 [facility] Comment on above: Performed By: #### M G, CMP #### [facility] [address] [address] [address] Deepak Greenfield LYMPH # 1.1 103/ul Critically low 1.2-3.8 [facility] Comment on above: Performed By: #### M G, CMP #### [facility] [address] [address] [address] Deepak Greenfield Lymphocytes/100 WBC (Bld) 13.6 % Critically low 20.5-60.0 [facility] Comment on above: Performed By: #### M G, CMP #### [facility] [address] [address] [address] Deepak Greenfield MANUAL DIFF REQ NO Normal [facility] Comment on above: Performed By: #### M G, CMP #### [facility] [address] [address] [address] Deepak Greenfield MCH (RBC) [Entitic mass] 32.2 pg Normal 25.9-34.0 [facility] Comment on above: Performed By: #### M G, CMP #### [facility] [address] [address] [address] Deepak Greenfield MCHC (RBC) [Mass/Vol] 32.6 g/dL Normal 29.9-35.2 [facility] Comment on above: Performed By: #### M G, CMP #### [facility] [address] [address] [address] Deepak Greenfield MCV (RBC) [Entitic vol] 98.8 fL Critically high 80.0-94.0 [facility] Comment on above: Performed By: #### M G, CMP #### [facility] [address] [place] [address] Dr. Deepak Greenfield MONO # 0.3 103/ul Normal 0.3-0.8 [facility] Comment on above: Performed By: #### M G, CMP #### [facility] [address] [place] [address] Dr. Deepak Greenfield Monocytes/100 WBC (Bld) 3.8 % Normal 1.7-12.0 [facility] Comment on above: Performed By: #### M G, CMP #### [facility] [address] [place] [address] Dr. Deepak Greenfield NEUT # 6.7 103/ul Critically high 1.4-6.[address] [facility] Comment on above: Performed By: #### M G, CMP #### [facility] [address] [place] [address] Dr. Deepak Greenfield Neutrophils/100 WBC (Bld) 81.9 % Critically high 43.0-75.0 [facility] Comment on above: Performed By: #### M G, CMP #### [facility] [address] [place] [address] Dr. Deepak Greenfield Platelet mean volume (Bld) [Entitic vol] 9.6 fL Normal 9.5-13.5 [facility] Comment on above: Performed By: #### M G, CMP #### [facility] [address] [place] [address] Dr. Deepak Greenfield PLT 257 103/ul Normal 150-450 [facility] Comment on above: Performed By: #### M G, CMP #### [facility] [address] [place] [address] Dr. Deepak Greenfield RBC 3.35 106/ul Critically low 4.70-6.10 [facility] Comment on above: Performed By: #### M G, CMP #### [facility] [address] [place] [address] Dr. Deepak Greenfield WBC 8.2 103/ul Normal 4.0-11.0 [facility] Comment on above: Performed By: #### M G, CMP #### [facility] [address] [place] [address] Dr. Deepak Greenfield LACTATE/LACTIC ACIDon 2022 Lactate [Moles/Vol] 1.1 mmol/L Normal 0.4-2.0 [facility] Comment on above: Performed By: #### I NFLUAB #### [facility] [address] [place] [address] Dr. Deepak Greenfield PROF CHEM 8 (BAS METB)on Anion gap [Moles/Vol] 9.4 mmol/L Normal [facility] Comment on above: Performed By: #### I NFLUAB #### [facility] [address] [place] [address] Dr. Deepak Greenfield Calcium [Mass/Vol] 8.0 mg/dL Critically low 8.5-10.1 [facility] Comment on above: Performed By: #### I NFLUAB #### [facility] [address] [place] [address] Dr. Deepak Greenfield Chloride [Moles/Vol] 105 mmol/L Normal 98-107 [facility] Comment on above: Performed By: #### I NFLUAB #### [facility] [address] [place] [address] Dr. Deepak Greenfield CO2 [Moles/Vol] 30.7 mmol/L Normal 21.0-32.0 [facility] Comment on above: Performed By: #### I NFLUAB #### [facility] [address] [place] [address] Dr. Deepak Greenfield Creatinine [Mass/Vol] 0.66 mg/dL Critically low 0.70-1.30 [facility] Comment on above: Performed By: #### I NFLUAB #### [facility] [address] [place] [address] Dr. Deepak Greenfield EGFR-AF TUNISIAN >60 Normal >=60 [facility] Comment on above: Performed By: #### I NFLUAB #### [facility] [address] [address] [address] Deepak Greenfield EGFR-NON AF TUNISIAN >60 Normal >=60 [facility] Comment on above: Performed By: #### I NFLUAB #### [facility] [address] [address] [address] Deepak Greenfield Glucose [Mass/Vol] 177 mg/dL Critically high 74-106 T [facility] Comment on above: Performed By: #### I NFLUAB #### [facility] [address] [address] [address] Deepak Greenfield Potassium [Moles/Vol] 4.1 mmol/L Normal 3.5-5.1 [facility] Comment on above: Performed By: #### I NFLUAB #### [facility] [address] [place] [address] Dr. Deepak Greenfield Sodium [Moles/Vol] 141 mmol/L Normal 136-145 [facility] Comment on above: Performed By: #### I NFLUAB #### [facility] [address] [place] [address] Dr. Deepak Greenfield Urea nitrogen [Mass/Vol] 9.0 mg/dL Normal 7.0-18.0 [facility] Comment on above: Performed By: #### I NFLUAB #### [facility] [address] [place] [address] Dr. Deepak Greenfield Urea nitrogen/Creatinine [Mass ratio] 13.6 mg/mg Normal [facility] Comment on above: Performed By: #### I NFLUAB #### [facility] [address] [place] [address] Dr. Deepak Greenfield AMMONIAon 07-28-2022 Ammonia (P) [Moles/Vol] 68 umol/L Critically high 11-32 [facility] Comment on above: Performed By: #### B MP #### [facility] [address] [place] [address] Dr. Deepak Greenfield CBC AUTO DIFFon 07-28-2022 BASO # 0.0 103/ul Normal 0.0-0.1 [facility] Comment on above: Performed By: #### C BC #### [facility] [address] [place] [address] Dr. Deepak Greenfield Basophils/100 WBC (Bld) 0.3 % Normal 0.2-2.0 [facility] Comment on above: Performed By: #### C BC #### [facility] [address] [place] [address] Dr. Deepak Greenfield EO # 0.0 103/ul Normal 0.0-0.7 [facility] Comment on above: Performed By: #### C BC #### [facility] [address] [place] [address] Dr. Deepak Greenfield Eosinophils/100 WBC (Bld) 0.0 % Critically low 0.9-7.0 [facility] Comment on above: Performed By: #### C BC #### [facility] [address] [place] [address] Dr. Deepak Greenfield Erythrocyte distribution width (RBC) [Ratio] 13.3 % Normal 11.0-15.0 [facility] Comment on above: Performed By: #### C BC #### [facility] [address] [place] [address] Dr. Deepak Greenfield Hematocrit (Bld) [Volume fraction] 37.0 % Critically low 42.0-54.0 [facility] Comment on above: Performed By: #### C BC #### [facility] [address] [place] [address] Dr. Deepak Greenfield Hemoglobin (Bld) [Mass/Vol] 12.3 g/dL Critically low 14.0-18.0 [facility] Comment on above: Performed By: #### C BC #### [facility] [address] [place] [address] Dr. Deepak Greenfield IG # 0.06 10e3/ul Critically high 0.00-0.03 [facility] Comment on above: Performed By: #### C BC #### [facility] [address] [place] [address] Dr. Deepak Greenfield IG % 0.5 % Normal 0.0-0.5 [facility] Comment on above: Performed By: #### C BC #### [facility] [address] [address] [address] Deepak Greenfield LYMPH # 2.9 103/ul Normal 1.2-3.8 [facility] Comment on above: Performed By: #### C BC #### [facility] [address] [address] [address] Deepak Greenfield Lymphocytes/100 WBC (Bld) 23.5 % Normal 20.5-60.0 [facility] Comment on above: Performed By: #### C BC #### [facility] [address] [place] [address] Dr. Deepak Greenfield MANUAL DIFF REQ NO Normal [facility] Comment on above: Performed By: #### C BC #### [facility] [address] [place] [address] Dr. Deepak Greenfield MCH (RBC) [Entitic mass] 32.4 pg Normal 25.9-34.0 [facility] Comment on above: Performed By: #### C BC #### [facility] [address] [place] [address] Dr. Deepak Greenfield MCHC (RBC) [Mass/Vol] 33.2 g/dL Normal 29.9-35.2 [facility] Comment on above: Performed By: #### C BC #### [facility] [address] [place] [address] Dr. Deepak Greenfield MCV (RBC) [Entitic vol] 97.4 fL Critically high 80.0-94.0 [facility] Comment on above: Performed By: #### C BC #### [facility] [address] [place] [address] Dr. Deepak Greenfield MONO # 1.0 103/ul Critically high 0.3-0.8 [facility] Comment on above: Performed By: #### C BC #### [facility] [address] [place] [address] Dr. Deepak Greenfield Monocytes/100 WBC (Bld) 8.0 % Normal 1.7-12.0 [facility] Comment on above: Performed By: #### C BC #### [facility] [address] [place] [address] Dr. Deepak Greenfield NEUT # 8.3 103/ul Critically high 1.4-6.5 [facility] Comment on above: Performed By: #### C BC #### [facility] [address] [place] [address] Dr. Deepak Greenfield Neutrophils/100 WBC (Bld) 67.7 % Normal 43.0-75.0 [facility] Comment on above: Performed By: #### C BC #### [facility] [address] [place] [address] Dr. Deepak Greenfield Platelet mean volume (Bld) [Entitic vol] 9.7 fL Normal 9.5-13.5 [facility] Comment on above: Performed By: #### C BC #### [facility] [address] [place] [address] Dr. Deepak Greenfield PLT 325 103/ul Normal 150-450 [facility] Comment on above: Performed By: #### C BC #### [facility] [address] [place] [address] Dr. Deepak Greenfield RBC 3.80 106/ul Critically low 4.70-6.10 [facility] Comment on above: Performed By: #### C BC #### [facility] [address] [place] [address] Dr. Deepak Greenfield WBC 12.2 103/ul Critically high 4.0-11.0 [facility] Comment on above: Performed By: #### C BC #### [facility] [address] [place] [address] Dr. Deepak Greenfield CULTURE BLOODon 07-28-2022 Microscopic examination of blood, culture Culture Observations: NO GROWTH AT 5 DAYS. Normal [facility] Comment on above: Performed By: #### B LDCX2 #### [facility] [address] [place] [address] Dr. Deepak Greenfield Microscopic examination of blood, culture Culture Observations: NO GROWTH AT 5 DAYS. Normal [facility] Comment on above: Performed By: #### C BC #### [facility] [address] [place] [address] Dr. Deepak Greenfield LACTATE/LACTIC ACIDon 2022 Lactate [Moles/Vol] 2.5 mmol/L Critically high 0.4-2.0 [facility] Comment on above: Performed By: #### C VDTB #### [facility] [address] [place] [address] Dr. Deepak Greenfield PROF 14(COMP METB)on 023 Albumin [Mass/Vol] 3.1 g/dL Critically low 3.4-5.0 [facility] Comment on above: Performed By: #### C BC #### [facility] [address] [place] [address] Dr. Deepak Greenfield Albumin/Globulin [Mass ratio] 0.7 {ratio} Normal [facility] Comment on above: Performed By: #### C BC #### [facility] [address] [place] [address] Dr. Deepak Greenfield ALP [Catalytic activity/Vol] 51 U/L Normal 46-116 [facility] Comment on above: Performed By: #### C BC #### [facility] [address] [place] [address] Dr. Deepak Greenfield ALT [Catalytic activity/Vol] 106 U/L Critically high 16-63 [facility] Comment on above: Performed By: #### C BC #### [facility] [address] [place] [address] Dr. Deepak Greenfield Anion gap [Moles/Vol] 14.2 mmol/L Normal [facility] Comment on above: Performed By: #### C BC #### [facility] [address] [place] [address] Dr. Deepak Greenfield AST [Catalytic activity/Vol] 81 U/L Critically high 15-37 [facility] Comment on above: Performed By: #### C BC #### [facility] [address] [place] [address] Dr. Deepak Greenfield Bilirubin [Mass/Vol] 0.4 mg/dL Normal 0.2-1.0 [facility] Comment on above: Performed By: #### C BC #### [facility] [address] [address] [address] Deepak Greenfield Calcium [Mass/Vol] 8.9 mg/dL Normal 8.5-10.1 [facility] Comment on above: Performed By: #### C BC #### [facility] [address] [address] [address] Deepak Greenfield Chloride [Moles/Vol] 105 mmol/L Normal 98-107 [facility] Comment on above: Performed By: #### C BC #### [facility] [address] [address] [address] Deepak Greenfield CO2 [Moles/Vol] 27.9 mmol/L Normal 21.0-32.0 [facility] Comment on above: Performed By: #### C BC #### [facility] [address] [place] [address] Dr. Deepak Greenfield Creatinine [Mass/Vol] 0.77 mg/dL Normal 0.70-1.30 [facility] Comment on above: Performed By: #### C BC #### [facility] [address] [place] [address] Dr. Deepak Greenfield EGFR-AF TUNISIAN >60 Normal >=60 [facility] Comment on above: Performed By: #### C BC #### [facility] [address] [place] [address] Dr. Deepak Greenfield EGFR-NON AF TUNISIAN >60 Normal >=60 [facility] Comment on above: Performed By: #### C BC #### [facility] [address] [place] [address] Dr. Deepak Greenfield Globulin (S) [Mass/Vol] 4.3 g/dL Normal [facility] Comment on above: Performed By: #### C BC #### [facility] [address] [place] [address] Dr. Deepak Greenfield Glucose [Mass/Vol] 162 mg/dL Critically high 74-106 T [facility] Comment on above: Performed By: #### C BC #### [facility] [address] [place] [address] Dr. Deepak Greenfield Potassium [Moles/Vol] 4.1 mmol/L Normal 3.5-5.1 [facility] Comment on above: Performed By: #### C BC #### [facility] [address] [place] [address] Dr. Deepak Greenfield Protein [Mass/Vol] 7.4 g/dL Normal 6.4-8.2 [facility] Comment on above: Performed By: #### C BC #### [facility] [address] [address] [address] Deepak Greenfield Sodium [Moles/Vol] 143 mmol/L Normal 136-145 [facility] Comment on above: Performed By: #### C BC #### [facility] [address] [place] [address] Dr. Deepak Greenfield Urea nitrogen [Mass/Vol] 12.0 mg/dL Normal 7.0-18.0 [facility] Comment on above: Performed By: #### C BC #### [facility] [address] [place] [address] Dr. Deepak Greenfield Urea nitrogen/Creatinine [Mass ratio] 15.6 mg/mg Normal [facility] Comment on above: Performed By: #### C BC #### [facility] [address] [place] [address] Dr. Deepak Greenfield RESPIRATORY PANEL PLUSon Adenovirus Not detected Normal NOT DETECTED [facility] Comment on above: Performed By: #### B MP #### [facility] [address] [place] [address] Dr. Deepak Murphy. Parapertusis Not detected Normal NOT DETECTED [facility] Comment on above: Performed By: #### B MP #### [facility] [address] [place] [address] Dr. Deepak Murphy. Pertussis Not detected Normal NOT DETECTED [facility] Comment on above: Performed By: #### B MP #### [facility] [address] [place] [address] Dr. Deepak Greenfield Chlamydia Pneumoniae Not detected Normal NOT DETECTED [facility] Comment on above: Performed By: #### B MP #### [facility] [address] [place] [address] Dr. Deepak Greenfield Coronavirus 229E Not detected Normal NOT DETECTED [facility] Comment on above: Performed By: #### B MP #### [facility] [address] [address] [address] Deepak Greenfield Coronavirus HKU1 Not detected Normal NOT DETECTED [facility] Comment on above: Performed By: #### B MP #### [facility] [address] [address] [address] Deepak Greenfield Coronavirus NL63 Not detected Normal NOT DETECTED [facility] Comment on above: Performed By: #### B MP #### [facility] [address] [place] [address] Dr. Deepak Greenfield Coronavirus OC43 Not detected Normal NOT DETECTED [facility] Comment on above: Performed By: #### B MP #### [facility] [address] [place] [address] Dr. Deepak Greenfield Influenza A H1 Not detected Normal NOT DETECTED [facility] Comment on above: Performed By: #### B MP #### [facility] [address] [place] [address] Dr. Deepak Greenfield Influenza A H1 2009 Not detected Normal NOT DETECTED T [facility] Comment on above: Performed By: #### B MP #### [facility] [address] [place] [address] Dr. Deepak Greenfield Influenza A H3 Not detected Normal NOT DETECTED [facility] Comment on above: Performed By: #### B MP #### [facility] [address] [place] [address] Dr. Deepak Greenfield Influenza B Not detected Normal NOT DETECTED [facility] Comment on above: Performed By: #### B MP #### [facility] [address] [place] [address] Dr. Deepak Greenfield Metapneumovirus Detected Abnormal NOT DETECTED [facility] Comment on above: Performed By: #### B MP #### [facility] [address] [place] [address] Dr. Deepak Greenfield Mycoplas. Pneumoniae Not detected Normal NOT DETECTED [facility] Comment on above: Performed By: #### B MP #### [facility] [address] [address] [address] Deepak Greenfield Parainfluenza 1 Not detected Normal NOT DETECTED [facility] Comment on above: Performed By: #### B MP #### [facility] [address] [place] [address] Dr. Deepak Greenfield Parainfluenza 2 Not detected Normal NOT DETECTED [facility] Comment on above: Performed By: #### B MP #### [facility] [address] [place] [address] Dr. Deepak Greenfield Parainfluenza 3 Not detected Normal NOT DETECTED [facility] Comment on above: Performed By: #### B MP #### [facility] [address] [place] [address] Dr. Deepak Greenfield Parainfluenza 4 Not detected Normal NOT DETECTED [facility] Comment on above: Performed By: #### B MP #### [facility] [address] [place] [address] Dr. Deepak Greenfield Rhino/Enterovirus Not detected Normal NOT DETECTED [facility] Comment on above: Performed By: #### B MP #### [facility] [address] [place] [address] Dr. Deepak Greenfield RP2 Header 1 RESPIRATORY PANEL: VIRUSES Normal [facility] Comment on above: Performed By: #### B MP #### [facility] [address] [place] [address] Dr. Deepak Greenfield RP2 Header 2 RESPIRATORY PANEL: BACTERIA Normal [facility] Comment on above: Performed By: #### B MP #### [facility] [address] [place] [address] Dr. Deepak Greenfield RSV Not detected Normal NOT DETECTED [facility] Comment on above: Performed By: #### B MP #### [facility] [address] [place] [address] Dr. Deepak Greenfield SARS-CoV-2 (COVID-19) RNA CINDY+probe Ql (Unsp spec) Not detected Normal NOT DETECTED [facility] Comment on above: Performed By: #### B MP #### [facility] [address] [address] [address] Deepak Greenfield XR CHEST 1 Von [...] Akua PEREZ Date: 2022-07-28 20:23 Normal [facility] AMMONIAon 07-27-2022 Ammonia (P) [Moles/Vol] 76 umol/L Critically high 11-32 [facility] Comment on above: Performed By: #### M Lacy, CMP #### [facility] [address] [address] [address] Deepak Greenfield CBC W MANUAL DIFFon 07-28-19 23 ATYPICAL LYMPH # Normal [facility] Comment on above: Performed By: #### M G, CMP #### [facility] [address] [address] [address] Deepak Greenfield ATYPICAL LYMPH % Normal [facility] Comment on above: Performed By: #### M G, CMP #### [facility] [address] [address] [address] Deepak Greenfield BAND # 0.4 103/ul Critically high 0.0-0.3 [facility] Comment on above: Performed By: #### M G, CMP #### [facility] [address] [address] [address] Deepak Greenfield BAND % 4 % Normal 0-5 [facility] Comment on above: Performed By: #### M G, CMP #### [facility] [address] [place] [address] Dr. Deepak Greenfield BASOM # 0.00 103/ul Normal 0.00-0.10 [facility] Comment on above: Performed By: #### M G, CMP #### [facility] [address] [place] [address] Dr. Deepak Greenfield BASOM % 0.0 % Critically low 0.2-2.0 [facility] Comment on above: Performed By: #### M G, CMP #### [facility] [address] [place] [address] Dr. Deepak Greenfield BLAST # Normal [facility] Comment on above: Performed By: #### M G, CMP #### [facility] [address] [place] [address] Dr. Deepak Greenfield BLAST % Normal [facility] Comment on above: Performed By: #### M G, CMP #### [facility] [address] [place] [address] Dr. Deepak Greenfield CORRECTED WBC Normal 4.0-11.0 [facility] Comment on above: Performed By: #### M G, CMP #### [facility] [address] [place] [address] Dr. Deepak Greenfield EOS # 0.00 103/ul Normal 0.00-0.70 [facility] Comment on above: Performed By: #### M G, CMP #### [facility] [address] [place] [address] Dr. Deepak Greenfield EOS% 0.0 % Critically low 0.9-7.0 [facility] Comment on above: Performed By: #### M G, CMP #### [facility] [address] [place] [address] Dr. Deepak Greenfield HCT 29.6 % Critically low 42.0-54.0 [facility] Comment on above: Performed By: #### M G, CMP #### [facility] [address] [place] [address] Dr. Deepak Greenfield HGB 10.4 g/dl Critically low 14.0-18.0 [facility] Comment on above: Performed By: #### M G, CMP #### [facility] [address] [address] [address] Deepak Greenfield LYMPHM # 0.71 103/ul Critically low 1.20-3.[address] [facility] Comment on above: Performed By: #### M G, CMP #### [facility] [address] [address] [address] Deepak Greenfield LYMPHM% 8.0 % Critically low 20.5-60.0 [facility] Comment on above: Performed By: #### M G, CMP #### [facility] [address] [address] [address] Deepak Greenfield MCH 33.0 pg Normal 25.9-34.0 [facility] Comment on above: Performed By: #### M G, CMP #### [facility] [address] [place] [address] Dr. Deeapk Greenfield MCHC 35.1 g/dl Normal 29.9-35.2 [facility] Comment on above: Performed By: #### M G, CMP #### [facility] [address] [place] [address] Dr. Deepak Greenfield MCV 94.0 fL Normal 80.0-94.0 [facility] Comment on above: Performed By: #### M G, CMP #### [facility] [address] [place] [address] Dr. Deepak Greenfield METAMYELOCYTE # Normal [facility] Comment on above: Performed By: #### M G, CMP #### [facility] [address] [place] [address] Dr. Deepak Greenfield METAMYELOCYTE % Normal [facility] Comment on above: Performed By: #### M G, CMP #### [facility] [address] [place] [address] Dr. Deepak Greenfield MONOM# 0.71 103/ul Normal 0.30-0.80 [facility] Comment on above: Performed By: #### M G, CMP #### [facility] [address] [address] [address] Deepak Greenfield MONOM% 8.0 % Normal 1.7-12.0 [facility] Comment on above: Performed By: #### M G, CMP #### [facility] [address] [address] [address] Deepak Greenfield MPV 9.6 fL Normal 9.5-13.5 [facility] Comment on above: Performed By: #### M G, CMP #### [facility] [address] [address] [address] Deepak Greenfield MYELOCYTE # Normal [facility] Comment on above: Performed By: #### M G, CMP #### [facility] [address] [place] [address] Dr. Deepak Greenfield MYELOCYTE % Normal [facility] Comment on above: Performed By: #### M G, CMP #### [facility] [address] [address] [address] Deepak Greenfield NRBC Normal [facility] Comment on above: Performed By: #### M G, CMP #### [facility] [address] [place] [address] Dr. Deepak Greenfield PLT 267 103/ul Normal 150-450 [facility] Comment on above: Performed By: #### M G, CMP #### [facility] [address] [address] [address] Deepak Greenfield RBC 3.15 106/ul Critically low 4.70-6.[address] [facility] Comment on above: Performed By: #### M G, CMP #### [facility] [address] [address] [address] Deepak Greenfield RDW 12.9 % Normal 11.0-15.0 [facility] Comment on above: Performed By: #### M G, CMP #### [facility] [address] [address] [address] Deepak Greenfield SEG # 7.12 103/ul Critically high 1.40-6.50 [facility] Comment on above: Performed By: #### M G, CMP #### [facility] [address] [address] [address] Deepak Greenfield SEG % 80.0 % Critically high 43.0-75.[address] [facility] Comment on above: Performed By: #### M G, CMP #### [facility] [address] [address] [address] Deepak Greenfield WBC 8.9 103/ul Normal 4.0-11.0 [facility] Comment on above: Performed By: #### M G, CMP #### [facility] [address] [address] [address] Deepak Greenfield PROF CHEM 8 (BAS METB)on Anion gap [Moles/Vol] 12.4 mmol/L Normal [facility] Comment on above: Performed By: #### C BC #### [facility] [address] [place] [address] Dr. Deepak Greenfield Calcium [Mass/Vol] 8.2 mg/dL Critically low 8.5-10.1 [facility] Comment on above: Performed By: #### C BC #### [facility] [address] [place] [address] Dr. Deepak Greenfield Chloride [Moles/Vol] 101 mmol/L Normal 98-107 [facility] Comment on above: Performed By: #### C BC #### [facility] [address] [place] [address] Dr. Deepak Greenfield CO2 [Moles/Vol] 25.0 mmol/L Normal 21.0-32.0 [facility] Comment on above: Performed By: #### C BC #### [facility] [address] [address] [address] Deepak Greenfield Creatinine [Mass/Vol] 0.53 mg/dL Critically low 0.70-1.30 [facility] Comment on above: Performed By: #### C BC #### [facility] [address] [place] [address] Dr. Deepak Greenfield EGFR-AF TUNISIAN >60 Normal >=60 [facility] Comment on above: Performed By: #### C BC #### [facility] [address] [address] [address] Deepak Greenfield EGFR-NON AF TUNISIAN >60 Normal >=60 [facility] Comment on above: Performed By: #### C BC #### [facility] [address] [address] [address] Deepak Greenfield Glucose [Mass/Vol] 161 mg/dL Critically high 74-106 T [facility] Comment on above: Performed By: #### C BC #### [facility] [address] [address] [address] Deepak Greenfiedl Potassium [Moles/Vol] 4.4 mmol/L Normal 3.5-5.1 [facility] Comment on above: Performed By: #### C BC #### [facility] [address] [place] [address] Dr. Deepak Greenfield Sodium [Moles/Vol] 134 mmol/L Critically low 136-145 Th [facility] Comment on above: Performed By: #### C BC #### [facility] [address] [address] [address] Deepak Greenfield Urea nitrogen [Mass/Vol] 13.0 mg/dL Normal 7.0-18.0 [facility] Comment on above: Performed By: #### C BC #### [facility] [address] [place] [address] Dr. Deepak Greenfield Urea nitrogen/Creatinine [Mass ratio] 24.5 mg/mg Normal [facility] Comment on above: Performed By: #### C BC #### [facility] [address] [place] [address] Dr. Deepak Greenfield AMMONIAon 07-26-2022 Ammonia (P) [Moles/Vol] 56 umol/L Critically high 11-32 [facility] Comment on above: Performed By: #### M G, CMP #### [facility] [address] [address] [address] Deepak Greenfield CARDIAC BEATRIS ADMITon 023 CK [Catalytic activity/Vol] 83 U/L Normal 39-308 [facility] Comment on above: Performed By: #### B MP #### [facility] [address] [place] [address] Dr. Deepak Greenfield CK.MB [Mass/Vol] 0.86 ng/mL Normal <=3.60 [facility] Comment on above: Performed By: #### B MP #### [facility] [address] [place] [address] Dr. Deepak Greenfield HSTROP 7.4 pg/mL Normal 4.0-76.1 [facility] Comment on above: Result Comment: CUT- OFF POINTS HAVE BEEN ESTABLISHED BASED ON THE FOURTH UNIVERSAL DEFINITIONS OF MYOCARDIAL INFARCTION. THE UPPER REFERENCE LIMIT (URL) OF TROPONIN, DEFINED THE 99TH PERCENTILE OF cTnI DISTRIBUTION IN A REFERENCE POPULATION, HAS BEEN CONFIRMED THE DECISION THRESHOLD FOR NC DIAGNOSIS. Performed By: #### B MP #### [facility] [address] [place] [address] Dr. Deepak Greenfield VALE 46 ng/mL Normal 16-96 [facility] Comment on above: Performed By: #### B MP #### [facility] [address] [place] [address] Dr. Deepak Greenfield CBC AUTO DIFFon 07-26-2022 BASO # 0.1 103/ul Normal 0.0-0.1 [facility] Comment on above: Performed By: #### M G, CMP #### [facility] [address] [place] [address] Dr. Deepak Greenfield Basophils/100 WBC (Bld) 0.5 % Normal 0.2-2.0 [facility] Comment on above: Performed By: #### M G, CMP #### [facility] [address] [place] [address] Dr. Deepak Greenfield EO # 0.2 103/ul Normal 0.0-0.7 [facility] Comment on above: Performed By: #### M G, CMP #### [facility] [address] [place] [address] Dr. Deepak Greenfield Eosinophils/100 WBC (Bld) 2.1 % Normal 0.9-7.0 [facility] Comment on above: Performed By: #### M G, CMP #### [facility] [address] [place] [address] Dr. Deepak Greenfield Erythrocyte distribution width (RBC) [Ratio] 13.2 % Normal 11.0-15.0 [facility] Comment on above: Performed By: #### M G, CMP #### [facility] [address] [place] [address] Dr. Deepak Greefnield Hematocrit (Bld) [Volume fraction] 36.7 % Critically low 42.0-54.0 [facility] Comment on above: Performed By: #### M G, CMP #### [facility] [address] [place] [address] Dr. Deepak Greenfield Hemoglobin (Bld) [Mass/Vol] 12.4 g/dL Critically low 14.0-18.0 [facility] Comment on above: Performed By: #### M G, CMP #### [facility] [address] [place] [address] Dr. Deepak Greenfield IG # 0.04 10e3/ul Critically high 0.00-0.03 [facility] Comment on above: Performed By: #### M G, CMP #### [facility] [address] [place] [address] Dr. Deepak Greenfield IG % 0.4 % Normal 0.0-0.5 [facility] Comment on above: Performed By: #### M G, CMP #### [facility] [address] [place] [address] Dr. Deepak Greenfield LYMPH # 1.7 103/ul Normal 1.2-3.8 [facility] Comment on above: Performed By: #### M G, CMP #### [facility] [address] [place] [address] Dr. Deepak Greenfield Lymphocytes/100 WBC (Bld) 15.6 % Critically low 20.5-60.0 [facility] Comment on above: Performed By: #### M G, CMP #### [facility] [address] [place] [address] Dr. Deepak Greenfield MANUAL DIFF REQ NO Normal [facility] Comment on above: Performed By: #### M G, CMP #### [facility] [address] [place] [address] Dr. Deepak Greenfield MCH (RBC) [Entitic mass] 32.5 pg Normal 25.9-34.0 [facility] Comment on above: Performed By: #### M G, CMP #### [facility] [address] [place] [address] Dr. Deepak Greenfield MCHC (RBC) [Mass/Vol] 33.8 g/dL Normal 29.9-35.2 [facility] Comment on above: Performed By: #### M G, CMP #### [facility] [address] [place] [address] Dr. Deepak Greenfield MCV (RBC) [Entitic vol] 96.3 fL Critically high 80.0-94.0 [facility] Comment on above: Performed By: #### M G, CMP #### [facility] [address] [place] [address] Dr. Deepak Greenfield MONO # 1.4 103/ul Critically high 0.3-0.[address] [facility] Comment on above: Performed By: #### M G, CMP #### [facility] [address] [place] [address] Dr. Deepak Greenfield Monocytes/100 WBC (Bld) 12.8 % Critically high 1.7-12.0 [facility] Comment on above: Performed By: #### M G, CMP #### [facility] [address] [place] [address] Dr. Deepak Greenfield NEUT # 7.4 103/ul Critically high 1.4-6.[address] [facility] Comment on above: Performed By: #### M G, CMP #### [facility] [address] [place] [address] Dr. Deepak Greenfield Neutrophils/100 WBC (Bld) 68.6 % Normal 43.0-75.0 [facility] Comment on above: Performed By: #### M G, CMP #### [facility] [address] [place] [address] Dr. Deepak Greenfield Platelet mean volume (Bld) [Entitic vol] 9.5 fL Normal 9.5-13.5 [facility] Comment on above: Performed By: #### M G, CMP #### [facility] [address] [place] [address] Dr. Deepak Greenfield PLT 314 103/ul Normal 150-450 [facility] Comment on above: Performed By: #### M G, CMP #### [facility] [address] [address] [address] Deepak Greenfield RBC 3.81 106/ul Critically low 4.70-6.[address] [facility] Comment on above: Performed By: #### M G, CMP #### [facility] [address] [place] [address] Dr. Deepak Greenfield WBC 10.8 103/ul Normal 4.0-11.0 [facility] Comment on above: Performed By: #### M G, CMP #### [facility] [address] [place] [address] Dr. Deepak Greenfield Covid-19 PCR (CVDTB)on SARS-CoV-2 (COVID-19) RNA CINDY+probe Ql (Unsp spec) Not detected Normal NOT DETECTED [facility] Comment on above: Result Comment: [...] for this test is supported by the [employer] Registered Nurse of Health and Human Service's declaration that [...] used). Performed By: #### C VDTBH #### [facility] [address] [place] [address] Dr. Deepak Greenfield INFLUENZA A AND B AGon 07-26 INFLUANEGH SEE BELOW Normal [facility] Comment on above: Result Comment: Nega tive for Flu A protein angiten. Infection due to Flu A cannot be ruled out. Flu A angiten in the sample may be below the detection limit of the test. Performed By: #### I NFLUAB #### [facility] [address] [place] [address] Dr. Deepak Greenfield INFLUBNEGH SEE BELOW Normal [facility] Comment on above: Result Comment: Nega tive for Flu B protein antigen. Infection due to Flu B cannot be ruled out. Flu B antigen in the sample may be below the detection limit of the test. Performed By: #### I NFLUAB #### [facility] [address] [place] [address] Dr. Deepak Greenfield INFLUENZA A AG Negative Normal NEGATIVE SEE COMMENT [facility] Comment on above: Performed By: #### I NFLUAB #### [facility] [address] [place] [address] Dr. Deepak Greenfield INFLUENZA B AG Negative Normal NEGATIVE SEE COMMENT [facility] Comment on above: Performed By: #### I NFLUAB #### [facility] [address] [place] [address] Dr. Deepak Greenfield LACTATE/LACTIC ACIDon 2022 Lactate [Moles/Vol] 1.2 mmol/L Normal 0.4-2.0 [facility] Comment on above: Performed By: #### M G, CMP #### [facility] [address] [place] [address] Dr. Deepak Greenfield PROF 14(COMP METB)on 023 Albumin [Mass/Vol] 3.3 g/dL Critically low 3.4-5.0 [facility] Comment on above: Performed By: #### B MP #### [facility] [address] [place] [address] Dr. Deepak Greenfield Albumin/Globulin [Mass ratio] 0.8 {ratio} Normal [facility] Comment on above: Performed By: #### B MP #### [facility] [address] [address] [address] Deepak Greenfield ALP [Catalytic activity/Vol] 45 U/L Critically low 46-116 [facility] Comment on above: Performed By: #### B MP #### [facility] [address] [address] [address] Deepak Greenfield ALT [Catalytic activity/Vol] 114 U/L Critically high 16-63 [facility] Comment on above: Performed By: #### B MP #### [facility] [address] [address] [address] Deepak Greenfield Anion gap [Moles/Vol] 14.5 mmol/L Normal [facility] Comment on above: Performed By: #### B MP #### [facility] [address] [place] [address] Dr. Depeak Greenfield AST [Catalytic activity/Vol] 71 U/L Critically high 15-37 [facility] Comment on above: Performed By: #### B MP #### [facility] [address] [place] [address] Dr. Deepak Greenfield Bilirubin [Mass/Vol] 0.7 mg/dL Normal 0.2-1.0 [facility] Comment on above: Performed By: #### B MP #### [facility] [address] [place] [address] Dr. Deepak Greenfield Calcium [Mass/Vol] 9.1 mg/dL Normal 8.5-10.1 [facility] Comment on above: Performed By: #### B MP #### [facility] [address] [place] [address] Dr. Deepak Greenfield Chloride [Moles/Vol] 98 mmol/L Normal 98-107 [facility] Comment on above: Performed By: #### B MP #### [facility] [address] [address] [address] Deepak Greenfield CO2 [Moles/Vol] 27.4 mmol/L Normal 21.0-32.0 [facility] Comment on above: Performed By: #### B MP #### [facility] [address] [address] [address] Deepak Greenfield Creatinine [Mass/Vol] 0.65 mg/dL Critically low 0.70-1.30 [facility] Comment on above: Performed By: #### B MP #### [facility] [address] [place] [address] Dr. Deepak Greenfield EGFR-AF TUNISIAN >60 Normal >=60 [facility] Comment on above: Performed By: #### B MP #### [facility] [address] [address] [address] Deepak Greenfield EGFR-NON AF TUNISIAN >60 Normal >=60 [facility] Comment on above: Performed By: #### B MP #### [facility] [address] [place] [address] Dr. Deepak Greenfield Globulin (S) [Mass/Vol] 4.2 g/dL Normal [facility] Comment on above: Performed By: #### B MP #### [facility] [address] [place] [address] Dr. Deepak Greenfield Glucose [Mass/Vol] 105 mg/dL Normal 74-106 [facility] Comment on above: Performed By: #### B MP #### [facility] [address] [place] [address] Dr. Deepak Greenfield Potassium [Moles/Vol] 3.9 mmol/L Normal 3.5-5.1 [facility] Comment on above: Performed By: #### B MP #### [facility] [address] [place] [address] Dr. Deepak Greenfield Protein [Mass/Vol] 7.5 g/dL Normal 6.4-8.2 [facility] Comment on above: Performed By: #### B MP #### [facility] [address] [place] [address] Dr. Deepak Greenfield Sodium [Moles/Vol] 136 mmol/L Normal 136-145 [facility] Comment on above: Performed By: #### B MP #### [facility] [address] [place] [address] Dr. Deepak Greenfield Urea nitrogen [Mass/Vol] 13.0 mg/dL Normal 7.0-18.0 [facility] Comment on above: Performed By: #### B MP #### [facility] [address] [address] [address] Deepak Greenfield Urea nitrogen/Creatinine [Mass ratio] 20.0 mg/mg Normal [facility] Comment on above: Performed By: #### B MP #### [facility] [address] [place], [place] [address] Dr. Deepak Greenfield XR CHEST 1 Von [...] by: ANICETO GARCIA Date: 2022-07-26 12:27 Normal [facility] Consent for Treatmenton Consent for Treatment [id number] .[id number]:127 Normal [facility] Physician Orderon 07-23-2022 Physician Order [id number] 1.00CD:127 Normal [facility] XR Adult Swallowing Function w/ Videoon 07-23-2022 [...] 11.70 DAP = 270.92 Normal [facility] AMMONIAon 06-03-2022 Ammonia (P) [Moles/Vol] 112 umol/L Critically high 11-32 [facility] Comment on above: Performed By: #### A MM #### [facility] [address] [place] [address] Dr. Deepak Greenfield DEPAKENE/ VALPROIC ACIDon DEPAKENE 94.0 ug/ml Normal 50.0-100.0 [facility] Comment on above: Performed By: #### C BC #### [facility] [address] [place] [address] Dr. Deepak Greenfield LIVER PROFILEon 06-03-2022 Albumin [Mass/Vol] 3.6 g/dL Normal 3.4-5.0 [facility] Comment on above: Performed By: #### C BC #### [facility] [address] [place] [address] Dr. Deepak Greenfield Albumin/Globulin [Mass ratio] 0.9 {ratio} Normal [facility] Comment on above: Performed By: #### C BC #### [facility] [address] [place] [address] Dr. Deepak Greenfield ALP [Catalytic activity/Vol] 55 U/L Normal 46-116 [facility] Comment on above: Performed By: #### C BC #### [facility] [address] [place] [address] Dr. Deepak Greenfield ALT [Catalytic activity/Vol] 76 U/L Critically high 16-63 [facility] Comment on above: Performed By: #### C BC #### [facility] [address] [address] [address] Deepak Greenfield AST [Catalytic activity/Vol] 51 U/L Critically high 15-37 [facility] Comment on above: Performed By: #### C BC #### [facility] [address] [address] [address] Deepak Greenfield BILI, CONJUGATED 0.1 mg/dL Normal 0.0-0.2 [facility] Comment on above: Performed By: #### C BC #### [facility] [address] [address] [address] Deepak Greenfield Bilirubin [Mass/Vol] 0.4 mg/dL Normal 0.2-1.0 [facility] Comment on above: Performed By: #### C BC #### [facility] [address] [address] [address] Deepak Greenfield Globulin (S) [Mass/Vol] 4.1 g/dL Normal [facility] Comment on above: Performed By: #### C BC #### [facility] [address] [address] [address] Deepak Greenfield Protein [Mass/Vol] 7.7 g/dL Normal 6.4-8.2 [facility] Comment on above: Performed By: #### C BC #### [facility] [address] [address] [address] Deepak Greenfield AMMONIAon 04-22-2022 Ammonia (P) [Moles/Vol] 108 umol/L Critically high 11-32 [facility] Comment on above: Performed By: #### B MP #### [facility] [address] [address] [address] Deepak Greenfield CBC AUTO DIFFon 04-22-2022 BASO # 0.0 103/ul Normal 0.0-0.1 [facility] Comment on above: Performed By: #### C BC #### [facility] [address] [address] [address] Deepak Greenfield Basophils/100 WBC (Bld) 0.5 % Normal 0.2-2.0 [facility] Comment on above: Performed By: #### C BC #### [facility] [address] [place] [address] Dr. Deepak Greenfield EO # 0.1 103/ul Normal 0.0-0.7 [facility] Comment on above: Performed By: #### C BC #### [facility] [address] [place] [address] Dr. Deepak Greenfield Eosinophils/100 WBC (Bld) 1.4 % Normal 0.9-7.0 [facility] Comment on above: Performed By: #### C BC #### [facility] [address] [place] [address] Dr. Deepak Greenfield Erythrocyte distribution width (RBC) [Ratio] 14.2 % Normal 11.0-15.0 [facility] Comment on above: Performed By: #### C BC #### [facility] [address] [place] [address] Dr. Deepak Greenfield Hematocrit (Bld) [Volume fraction] 37.0 % Critically low 42.0-54.0 [facility] Comment on above: Performed By: #### C BC #### [facility] [address] [place] [address] Dr. Deepak Greenfield Hemoglobin (Bld) [Mass/Vol] 12.3 g/dL Critically low 14.0-18.0 [facility] Comment on above: Performed By: #### C BC #### [facility] [address] [place] [address] Dr. Depeak Greenfield IG # 0.00 10e3/ul Normal 0.00-0.03 [facility] Comment on above: Performed By: #### C BC #### [facility] [address] [place] [address] Dr. Deepak Greenfield IG % 0.0 % Normal 0.0-0.5 [facility] Comment on above: Performed By: #### C BC #### [facility] [address] [place] [address] Dr. Deepak Greenfield LYMPH # 3.3 103/ul Normal 1.2-3.8 [facility] Comment on above: Performed By: #### C BC #### [facility] [address] [place] [address] Dr. Deepak Greenfield Lymphocytes/100 WBC (Bld) 51.5 % Normal 20.5-60.0 [facility] Comment on above: Performed By: #### C BC #### [facility] [address] [place] [address] Dr. Deepak Greenfield MANUAL DIFF REQ NO Normal [facility] Comment on above: Performed By: #### C BC #### [facility] [address] [place] [address] Dr. Deepak Greenfield MCH (RBC) [Entitic mass] 32.2 pg Normal 25.9-34.0 [facility] Comment on above: Performed By: #### C BC #### [facility] [address] [place] [address] Dr. Deepak Greenfield MCHC (RBC) [Mass/Vol] 33.2 g/dL Normal 29.9-35.2 [facility] Comment on above: Performed By: #### C BC #### [facility] [address] [place] [address] Dr. Deepak Greenfield MCV (RBC) [Entitic vol] 96.9 fL Critically high 80.0-94.0 [facility] Comment on above: Performed By: #### C BC #### [facility] [address] [place] [address] Dr. Deepak Greenfield MONO # 0.6 103/ul Normal 0.3-0.8 [facility] Comment on above: Performed By: #### C BC #### [facility] [address] [place] [address] Dr. Deepak Greenfield Monocytes/100 WBC (Bld) 9.7 % Normal 1.7-12.0 [facility] Comment on above: Performed By: #### C BC #### [facility] [address] [place] [address] Dr. Deepak Greenfield NEUT # 2.4 103/ul Normal 1.4-6.5 [facility] Comment on above: Performed By: #### C BC #### [facility] [address] [address] [address] Deepak Greenfield Neutrophils/100 WBC (Bld) 36.9 % Critically low 43.0-75.0 [facility] Comment on above: Performed By: #### C BC #### [facility] [address] [address] [address] Deepak Greenfield Platelet mean volume (Bld) [Entitic vol] 10.2 fL Normal 9.5-13.5 [facility] Comment on above: Performed By: #### C BC #### [facility] [address] [address] [address] Deepak Greenfield PLT 248 103/ul Normal 150-450 [facility] Comment on above: Performed By: #### C BC #### [facility] [address] [place] [address] Dr. Deepak Greenfield RBC 3.82 106/ul Critically low 4.70-6.[address] [facility] Comment on above: Performed By: #### C BC #### [facility] [address] [address] [address] Deepak Greenfield WBC 6.5 103/ul Normal 4.0-11.0 [facility] Comment on above: Performed By: #### C BC #### [facility] [address] [address] [address] Deepak Greenfield FERRITINon 04-22-2022 Ferritin [Mass/Vol] 152.0 ng/mL Normal 26.0-388.0 [facility] Comment on above: Performed By: #### M G, CMP #### [facility] [address] [address] [address] Deepak Greenfield IRONon 04-22-2022 Iron [Mass/Vol] 136.0 ug/dL Normal 65.0-175.0 [facility] Comment on above: Performed By: #### M G, CMP #### [facility] [address] [place] [address] Dr. Deepak Greenfield MAGNESIUMon 04-22-2022 Magnesium [Mass/Vol] 1.6 mg/dL Critically low 1.8-2.4 [facility] Comment on above: Performed By: #### I NFLUAB #### [facility] [address] [place] [address] Dr. Deepak Greenfield VITAMIN B12on 04-22-2022 Cobalamin (Vitamin B12) [Mass/Vol] 545.0 pg/mL Normal 193.0-986.0 [facility] Comment on above: Performed By: #### M G, CMP #### [facility] [address] [place] [address] Dr. Deepak Greenfield CBC AUTO DIFFon 03-19-2022 BASO # 0.0 103/ul Normal 0.0-0.1 [facility] Comment on above: Performed By: #### M G, CMP #### [facility] [address] [place] [address] Dr. Deepak Greenfield Basophils/100 WBC (Bld) 0.5 % Normal 0.2-2.0 [facility] Comment on above: Performed By: #### M G, CMP #### [facility] [address] [place] [address] Dr. Deepak Greenfield EO # 0.2 103/ul Normal 0.0-0.7 [facility] Comment on above: Performed By: #### M G, CMP #### [facility] [address] [place] [address] Dr. Deepak Greenfield Eosinophils/100 WBC (Bld) 2.0 % Normal 0.9-7.0 [facility] Comment on above: Performed By: #### M G, CMP #### [facility] [address] [place] [address] Dr. Deepak Greenfield Erythrocyte distribution width (RBC) [Ratio] 13.5 % Normal 11.0-15.0 [facility] Comment on above: Performed By: #### M G, CMP #### [facility] [address] [place] [address] Dr. Deepak Greenfield Hematocrit (Bld) [Volume fraction] 38.5 % Critically low 42.0-54.0 [facility] Comment on above: Performed By: #### M G, CMP #### [facility] [address] [address] [address] Deepak Greenfield Hemoglobin (Bld) [Mass/Vol] 12.6 g/dL Critically low 14.0-18.0 [facility] Comment on above: Performed By: #### M G, CMP #### [facility] [address] [address] [address] Deepak Greenfield IG # 0.02 10e3/ul Normal 0.00-0.03 [facility] Comment on above: Performed By: #### M G, CMP #### [facility] [address] [address] [address] Deepak Greenfield IG % 0.2 % Normal 0.0-0.5 [facility] Comment on above: Performed By: #### M G, CMP #### [facility] [address] [place] [address] Dr. Deepak Greenfield LYMPH # 3.1 103/ul Normal 1.2-3.8 [facility] Comment on above: Performed By: #### M G, CMP #### [facility] [address] [address] [address] Deepak Greenfield Lymphocytes/100 WBC (Bld) 36.2 % Normal 20.5-60.0 [facility] Comment on above: Performed By: #### M G, CMP #### [facility] [address] [address] [address] Deepak Greenfield MANUAL DIFF REQ NO Normal [facility] Comment on above: Performed By: #### M G, CMP #### [facility] [address] [address] [address] Deepak Greenfield MCH (RBC) [Entitic mass] 32.1 pg Normal 25.9-34.0 [facility] Comment on above: Performed By: #### M G, CMP #### [facility] [address] [address] [address] Deepak Greenfield MCHC (RBC) [Mass/Vol] 32.7 g/dL Normal 29.9-35.2 [facility] Comment on above: Performed By: #### M G, CMP #### [facility] [address] [address] [address] Deepak Greenfield MCV (RBC) [Entitic vol] 98.0 fL Critically high 80.0-94.0 [facility] Comment on above: Performed By: #### M G, CMP #### [facility] [address] [address] [address] Deepak Greenfield MONO # 0.9 103/ul Critically high 0.3-0.[address] [facility] Comment on above: Performed By: #### M G, CMP #### [facility] [address] [place] [address] Dr. Deepak Greenfield Monocytes/100 WBC (Bld) 10.6 % Normal 1.7-12.0 [facility] Comment on above: Performed By: #### M G, CMP #### [facility] [address] [place] [address] Dr. Deepak Greenfield NEUT # 4.3 103/ul Normal 1.4-6.5 [facility] Comment on above: Performed By: #### M G, CMP #### [facility] [address] [place] [address] Dr. Deepak Greenfield Neutrophils/100 WBC (Bld) 50.5 % Normal 43.0-75.0 [facility] Comment on above: Performed By: #### M G, CMP #### [facility] [address] [place] [address] Dr. Deepak Greenfield Platelet mean volume (Bld) [Entitic vol] 9.9 fL Normal 9.5-13.5 [facility] Comment on above: Performed By: #### M G, CMP #### [facility] [address] [place] [address] Dr. Deepak Greenfield PLT 263 103/ul Normal 150-450 [facility] Comment on above: Performed By: #### M G, CMP #### [facility] [address] [place] [address] Dr. Deepak Greenfield RBC 3.93 106/ul Critically low 4.70-6.10 [facility] Comment on above: Performed By: #### M G, CMP #### [facility] [address] [place] [address] Dr. Deepak Greenfield WBC 8.6 103/ul Normal 4.0-11.0 [facility] Comment on above: Performed By: #### M G, CMP #### [facility] [address] [place] [address] Dr. Deepak Greenfield MAGNESIUMon 03-19-2022 Magnesium [Mass/Vol] 1.5 mg/dL Critically low 1.8-2.4 [facility] Comment on above: Performed By: #### Karishma House, CMP #### [facility] [address] [place] [address] Dr. Deepak Greenfield PROF 14(COMP METB)on 022 Albumin [Mass/Vol] 3.4 g/dL Normal 3.4-5.0 [facility] Comment on above: Performed By: #### Karishma House, CMP #### [facility] [address] [place] [address] Dr. Deepak Greenfield Albumin/Globulin [Mass ratio] 0.9 {ratio} Normal [facility] Comment on above: Performed By: #### Karishma House, CMP #### [facility] [address] [place] [address] Dr. Deepak Greenfield ALP [Catalytic activity/Vol] 47 U/L Normal 46-116 [facility] Comment on above: Performed By: #### Karishma House, CMP #### [facility] [address] [place] [address] Dr. Deepak Greenfield ALT [Catalytic activity/Vol] 48 U/L Normal 16-63 [facility] Comment on above: Performed By: #### Karishma House, CMP #### [facility] [address] [place] [address] Dr. Deepak Greenfield Anion gap [Moles/Vol] 9.5 mmol/L Normal [facility] Comment on above: Performed By: #### Karishma G, CMP #### [facility] [address] [place] [address] Dr. Deepak Greenfield AST [Catalytic activity/Vol] 30 U/L Normal 15-37 [facility] Comment on above: Performed By: #### M G, CMP #### [facility] [address] [place] [address] Dr. Deepak Greenfield Bilirubin [Mass/Vol] 0.2 mg/dL Normal 0.2-1.0 [facility] Comment on above: Performed By: #### M G, CMP #### [facility] [address] [place] [address] Dr. Deepak Greenfield Calcium [Mass/Vol] 8.7 mg/dL Normal 8.5-10.1 [facility] Comment on above: Performed By: #### M G, CMP #### [facility] [address] [place] [address] Dr. Deepak Greenfield Chloride [Moles/Vol] 105 mmol/L Normal 98-107 [facility] Comment on above: Performed By: #### M G, CMP #### [facility] [address] [place] [address] Dr. Deepak Greenfield CO2 [Moles/Vol] 32.6 mmol/L Critically high 21.0-32.0 [facility] Comment on above: Performed By: #### M G, CMP #### [facility] [address] [place] [address] Dr. Deepak Greenfield Creatinine [Mass/Vol] 0.70 mg/dL Normal 0.70-1.30 [facility] Comment on above: Performed By: #### M G, CMP #### [facility] [address] [place] [address] Dr. Deepak Greenfield EGFR-AF TUNISIAN >60 Normal >=60 [facility] Comment on above: Performed By: #### M G, CMP #### [facility] [address] [place] [address] Dr. Deepak Greenfield EGFR-NON AF TUNISIAN >60 Normal >=60 [facility] Comment on above: Performed By: #### M G, CMP #### [facility] [address] [place] [address] Dr. Deepak Greenfield Globulin (S) [Mass/Vol] 3.8 g/dL Normal [facility] Comment on above: Performed By: #### M G, CMP #### [facility] [address] [place] [address] Dr. Deepak Greenfield Glucose [Mass/Vol] 98 mg/dL Normal 74-106 [facility] Comment on above: Performed By: #### M G, CMP #### [facility] [address] [place] [address] Dr. Deepak Greenfield Potassium [Moles/Vol] 4.1 mmol/L Normal 3.5-5.1 [facility] Comment on above: Performed By: #### M G, CMP #### [facility] [address] [place] [address] Dr. Deepak Greenfield Protein [Mass/Vol] 7.2 g/dL Normal 6.4-8.2 [facility] Comment on above: Performed By: #### M G, CMP #### [facility] [address] [place] [address] Dr. Deepak Greenfield Sodium [Moles/Vol] 143 mmol/L Normal 136-145 [facility] Comment on above: Performed By: #### M G, CMP #### [facility] [address] [place] [address] Dr. Deepak Greenfield Urea nitrogen [Mass/Vol] 10.0 mg/dL Normal 7.0-18.0 [facility] Comment on above: Performed By: #### M G, CMP #### [facility] [address] [place] [address] Dr. Deepak Greenfield Urea nitrogen/Creatinine [Mass ratio] 14.3 mg/mg Normal [facility] Comment on above: Performed By: #### M G, CMP #### [facility] [address] [place] [address] Dr. Deepak Greenfield VITAMIN D 25 OHon 03-19-2022 VIT D 25-OH 67.5 ng/mL Normal [facility] Comment on above: Performed By: #### M G, CMP #### [facility] [address] [place] [address] Dr. Deepak Greenfield VIT D RANGES SEE BELOW Normal [facility] Comment on above: Result Comment: <20 ng/mL Vit D deficient 20 - <30 ng/mL Vit D insufficient 30 - 100 ng/mL Vit D sufficient >100 ng/mL Potential Toxicity Performed By: #### M Lacy, CMP #### [facility] [address] [place] [address] Dr. Deepak Greenfield AMMONIAon 03-10-2022 Ammonia (P) [Moles/Vol] 36 umol/L Critically high [facility] Comment on above: Performed By: #### C BC #### [facility] [address] [place] [address] Dr. Deepak Greenfield DEPAKENE/ VALPROIC ACIDon DEPAKENE 93.5 ug/ml Normal 50.0-100.0 [facility] Comment on above: Performed By: #### B MP #### [facility] [address] [place] [address] Dr. Deepak Greenfield BNPon 01-24-2022 Natriuretic peptide B (Bld) [Mass/Vol] 183.0 pg/mL Normal <=450.0 [facility] Comment on above: Performed By: #### Karishma House, CMP #### [facility] [address] [place] [address] Dr. Deepak Greenfield CBC AUTO DIFFon 01-24-2022 BASO # 0.0 103/ul Normal 0.0-0.1 [facility] Comment on above: Performed By: #### C VDTBH #### [facility] [address] [place] [address] Dr. Deepak Greenfield Basophils/100 WBC (Bld) 0.3 % Normal 0.2-2.0 [facility] Comment on above: Performed By: #### C VDTBH #### [facility] [address] [place] [address] Dr. Deepak Greenfield EO # 0.1 103/ul Normal 0.0-0.7 [facility] Comment on above: Performed By: #### C VDTBH #### [facility] [address] [place] [address] Dr. Deepak Greenfield Eosinophils/100 WBC (Bld) 0.4 % Critically low 0.9-7.0 [facility] Comment on above: Performed By: #### C VDTBH #### [facility] [address] [place] [address] Dr. Deepak Greenfield Erythrocyte distribution width (RBC) [Ratio] 13.6 % Normal 11.0-15.0 [facility] Comment on above: Performed By: #### C VDTBH #### [facility] [address] [place] [address] Dr. Deepak Greenfield Hematocrit (Bld) [Volume fraction] 39.3 % Critically low 42.0-54.0 [facility] Comment on above: Performed By: #### C VDTBH #### [facility] [address] [place] [address] Dr. Deepak Greenfield Hemoglobin (Bld) [Mass/Vol] 12.6 g/dL Critically low 14.0-18.0 [facility] Comment on above: Performed By: #### C VDTBH #### [facility] [address] [place] [address] Dr. Deepak Greenfield IG # 0.04 10e3/ul Critically high 0.00-0.03 [facility] Comment on above: Performed By: #### C VDTBH #### [facility] [address] [place] [address] Dr. Deepak Greenfield IG % 0.3 % Normal 0.0-0.5 [facility] Comment on above: Performed By: #### C VDTBH #### [facility] [address] [place] [address] Dr. Deepak Greenfield LYMPH # 2.4 103/ul Normal 1.2-3.8 [facility] Comment on above: Performed By: #### C VDTBH #### [facility] [address] [place] [address] Dr. Deepak Greenfield Lymphocytes/100 WBC (Bld) 16.6 % Critically low 20.5-60.0 [facility] Comment on above: Performed By: #### C VDTBH #### [facility] [address] [place] [address] Dr. Deepak Greenfield MANUAL DIFF REQ NO Normal [facility] Comment on above: Performed By: #### C VDTBH #### [facility] [address] [place] [address] Dr. Deepak Greenfield MCH (RBC) [Entitic mass] 32.0 pg Normal 25.9-34.0 [facility] Comment on above: Performed By: #### C VDTBH #### [facility] [address] [place] [address] Dr. Deepak Greenfield MCHC (RBC) [Mass/Vol] 32.1 g/dL Normal 29.9-35.2 [facility] Comment on above: Performed By: #### C VDTBH #### [facility] [address] [place] [address] Dr. Deepak Greenfield MCV (RBC) [Entitic vol] 99.7 fL Critically high 80.0-94.0 [facility] Comment on above: Performed By: #### C VDTBH #### [facility] [address] [place] [address] Dr. Deepak Greenfield MONO # 1.4 103/ul Critically high 0.3-0.8 [facility] Comment on above: Performed By: #### C VDTBH #### [facility] [address] [place] [address] Dr. eDepak Greenfield Monocytes/100 WBC (Bld) 9.8 % Normal 1.7-12.0 [facility] Comment on above: Performed By: #### C VDTBH #### [facility] [address] [place] [address] Dr. Deepak Greenfield NEUT # 10.7 103/ul Critically high 1.4-6.5 [facility] Comment on above: Performed By: #### C VDTBH #### [facility] [address] [place] [address] Dr. Deepak Greenfield Neutrophils/100 WBC (Bld) 72.6 % Normal 43.0-75.0 [facility] Comment on above: Performed By: #### C VDTBH #### [facility] [address] [address] [address] Deepak Greenfield Platelet mean volume (Bld) [Entitic vol] 10.4 fL Normal 9.5-13.5 [facility] Comment on above: Performed By: #### C VDTBH #### [facility] [address] [address] [address] Deepak Greenfield PLT 280 103/ul Normal 150-450 [facility] Comment on above: Performed By: #### C VDTBH #### [facility] [address] [address] [address] Deepak Greenfield RBC 3.94 106/ul Critically low 4.70-6.[address] [facility] Comment on above: Performed By: #### C VDTBH #### [facility] [address] [place] [address] Dr. Deepak Greenfield WBC 14.7 103/ul Critically high 4.0-11.0 [facility] Comment on above: Performed By: #### C VDTBH #### [facility] [id number] Deepak Greenfield CULTURE BLOODon 01-24-2022 Microscopic examination of blood, culture Culture Observations: No growth at 5 days. Normal [facility] Comment on above: Performed By: #### C BC #### [facility] [address] [place], [place] [id number] Dr. Deepak Greenfield Microscopic examination of blood, culture Culture Observations: No growth at 5 days. Normal [facility] Comment on above: Performed By: #### C BC #### [facility] [address] [place] [address] Dr. Deepak Greenfield [facility]on SARS-CoV-2 (COVID-19) RNA CINDY+probe Ql (Unsp spec) Not detected Normal NOT DETECTED [facility] Comment on above: Result Comment: [...] for this test is supported by the [place] of Health and Human Service's declaration that [...] used). Performed By: #### I NFLUAB #### [facility] [address] [place] [address] Dr. Deepak Greenfield LACTATE/LACTIC ACIDon 2021 Lactate [Moles/Vol] 1.7 mmol/L Normal 0.4-1.9 [facility] Comment on above: Performed By: #### M G, CMP #### [facility] [address] [place] [address] Dr. Deepak Greenfield PROF 14(COMP METB)on 022 Albumin [Mass/Vol] 3.2 g/dL Critically low 3.4-5.0 Th [facility] Comment on above: Performed By: #### M G, CMP #### [facility] [address] [place] [address] Dr. Deepak Greenfield Albumin/Globulin [Mass ratio] 0.7 {ratio} Normal [facility] Comment on above: Performed By: #### M G, CMP #### [facility] [address] [place] [address] Dr. Deepak Greenfield ALP [Catalytic activity/Vol] 49 U/L Normal 46-116 [facility] Comment on above: Performed By: #### M G, CMP #### [facility] [address] [place] [address] Dr. Deepak Greenfield ALT [Catalytic activity/Vol] 41 U/L Normal 16-63 [facility] Comment on above: Performed By: #### M G, CMP #### [facility] [address] [address] [address] Deepak Greenfield Anion gap [Moles/Vol] 11.1 mmol/L Normal [facility] Comment on above: Performed By: #### M G, CMP #### [facility] [address] [address] [address] Deepak Greenfield AST [Catalytic activity/Vol] 29 U/L Normal 15-37 [facility] Comment on above: Performed By: #### M G, CMP #### [facility] [address] [address] [address] Deepak Greenfield Bilirubin [Mass/Vol] 0.5 mg/dL Normal 0.2-1.0 [facility] Comment on above: Performed By: #### M G, CMP #### [facility] [address] [place] [address] Dr. Deepak Greenfield Calcium [Mass/Vol] 9.1 mg/dL Normal 8.5-10.1 [facility] Comment on above: Performed By: #### M G, CMP #### [facility] [address] [address] [address] Deepak Greenfield Chloride [Moles/Vol] 108 mmol/L Critically high 98-107 [facility] Comment on above: Performed By: #### M G, CMP #### [facility] [address] [place] [address] Dr. Deepak Greenfield CO2 [Moles/Vol] 25.7 mmol/L Normal 21.0-32.0 [facility] Comment on above: Performed By: #### M G, CMP #### [facility] [address] [address] [address] Deepak Greenfield Creatinine [Mass/Vol] 0.89 mg/dL Normal 0.70-1.30 [facility] Comment on above: Performed By: #### M G, CMP #### [facility] [address] [address] [address] Deepak Greenfield EGFR-AF TUNISIAN >60 Normal >=60 [facility] Comment on above: Performed By: #### M G, CMP #### [facility] [address] [address] [address] Deepak Greenfield EGFR-NON AF TUNISIAN >60 Normal >=60 [facility] Comment on above: Performed By: #### M G, CMP #### [facility] [address] [address] [address] Deepak Greenfield Globulin (S) [Mass/Vol] 4.5 g/dL Normal [facility] Comment on above: Performed By: #### M G, CMP #### [facility] [address] [address] [address] Deepak Greenfield Glucose [Mass/Vol] 178 mg/dL Critically high 74-106 T [facility] Comment on above: Performed By: #### M G, CMP #### [facility] [address] [address] [address] Deepak Greenfield Potassium [Moles/Vol] 3.8 mmol/L Normal 3.5-5.1 [facility] Comment on above: Performed By: #### M G, CMP #### [facility] [address] [address] [address] Deepak Greenfield Protein [Mass/Vol] 7.7 g/dL Normal 6.4-8.2 [facility] Comment on above: Performed By: #### M G, CMP #### [facility] [address] [address] [address] Deepak Greenfield Sodium [Moles/Vol] 141 mmol/L Normal 136-145 [facility] Comment on above: Performed By: #### M G, CMP #### [facility] [address] [address] [address] Deepak Greenfield Urea nitrogen [Mass/Vol] 16.0 mg/dL Normal 7.0-18.0 [facility] Comment on above: Performed By: #### M G, CMP #### [facility] [address] [address] [address] Deepak Greenfield Urea nitrogen/Creatinine [Mass ratio] 18.0 mg/mg Normal [facility] Comment on above: Performed By: #### M G, CMP #### [facility] [address] [address] [address] Deepak Greenfield TROPONIN, HIGH SENSITIVITYon 01-24-2022 HSTROP 6.4 pg/mL Normal 4.0-76.1 [facility] Comment on above: Result Comment: CUT- OFF POINTS HAVE BEEN ESTABLISHED BASED ON THE FOURTH UNIVERSAL DEFINITIONS OF MYOCARDIAL INFARCTION. THE UPPER REFERENCE LIMIT (URL) OF TROPONIN, DEFINED THE 99TH PERCENTILE OF cTnI DISTRIBUTION IN A REFERENCE POPULATION, HAS BEEN CONFIRMED THE DECISION THRESHOLD FOR NC DIAGNOSIS. Performed By: #### M G, CMP #### [facility] [address] [place] [address] Dr. Deepak Greenfield XR CHEST 1 Von [...] ANICETO CROCKER Date: 2022-01-24 15:28 Normal [facility] UA RANDOM W/MICROSCOPICon BACTERIA NONE SEEN Normal NONE SEEN [facility] Comment on above: Performed By: #### C VDTB #### [facility] [address] [place] [address] Dr. Deepak Greenfield Bilirubin Ql (U) Negative Normal NEGATIVE [facility] Comment on above: Performed By: #### C VDTBH #### [facility] [address] [place] [address] Dr. Deepak Greenfield CAST NONE SEEN Normal NONE SEEN [facility] Comment on above: Performed By: #### C VDTBH #### [facility] [address] [place] [address] Dr. Deepak Greenfield Clarity (U) CLEAR Normal CLEAR [facility] Comment on above: Performed By: #### C VDTBH #### [facility] [address] [place] [address] Dr. Deepak Greenfield Color (U) YELLOW Normal YELLOW [facility] Comment on above: Performed By: #### C VDTBH #### [facility] [address] [address] [address] Deepak Greenfield Crystals LM Nom (Urine sed) NONE SEEN Normal NONE SEEN [facility] Comment on above: Performed By: #### C VDTBH #### [facility] [address] [place] [address] Dr. Deepak Greenfield Epithelial cells LM Ql (Urine sed) RARE Normal NONE SEEN /RARE [facility] Comment on above: Performed By: #### C VDTBH #### [facility] [address] [place] [address] Dr. Deepak Greenfield Glucose Ql (U) Negative Normal NEGATIVE [facility] Comment on above: Performed By: #### C VDTBH #### [facility] [address] [place] [address] Dr. Deepak Greenfield Hemoglobin Ql (U) Negative Normal NEGATIVE [facility] Comment on above: Performed By: #### C VDTBH #### [facility] [address] [place] [address] Dr. Deepak Greenfield Ketones Ql (U) 15 mg/dl Abnormal NEGATIVE [facility] Comment on above: Performed By: #### C VDTBH #### [facility] [address] [place] [address] Dr. Deepak Greenfield LEUKOCYTES Negative Normal NEGATIVE [facility] Comment on above: Performed By: #### C VDTBH #### [facility] [address] [place] [address] Dr. Deepak Greenfield MUCOUS NONE SEEN Normal NONE SEEN [facility] Comment on above: Performed By: #### C VDTBH #### [facility] [address] [place] [address] Dr. Deepak Greenfield Nitrite Ql (U) Negative Normal NEGATIVE [facility] Comment on above: Performed By: #### C VDTBH #### [facility] [address] [place] [address] Dr. Deepak Greenfield pH (U) 6.0 [pH] Normal 5-9 [facility] Comment on above: Performed By: #### C VDTBH #### [facility] [address] [place] [address] Dr. Deepak Greenfield RBC 0-2 Normal 0-2 [facility] Comment on above: Performed By: #### C VDTBH #### [facility] [address] [place] [address] Dr. Deepak Greenfield SPEC GRAVITY 1.020 Normal 1.005-<=1.025 [facility] Comment on above: Performed By: #### C VDTBH #### [facility] [address] [place] [address] Dr. Deepak Greenfield UA PROTEIN Negative Normal NEGATIVE/ TRACE [facility] Comment on above: Performed By: #### C VDTBH #### [facility] [address] [place] [address] Dr. Deepak Greenfield Urobilinogen Qn (U) 0.2 {Ottoniel'U}/dL Normal 0.2 - 1. 0 [facility] Comment on above: Performed By: #### C VDTBH #### [facility] [address] [place] [address] Dr. Deepak Greenfield WBC NONE SEEN Normal NONE SEEN [facility] Comment on above: Performed By: #### C VDTBH #### [facility] [address] [place] [address] Dr. Deepak Greenfield ALBUMINon 01-12-2022 Albumin [Mass/Vol] 3.4 g/dL Normal 3.4-5.0 [facility] Comment on above: Performed By: #### C VDTBH #### [facility] [address] [place] [address] Dr. Deepak Greenfield ALKALINE PHOSPHAon ALP [Catalytic activity/Vol] 46 U/L Normal 46-116 [facility] Comment on above: Performed By: #### C VDTBH #### [facility] [address] [place] [address] Dr. Deepak Greenfield AMMONIAon 01-12-2022 Ammonia (P) [Moles/Vol] 93 umol/L Critically high 11-32 [facility] Comment on above: Performed By: #### I NFLUAB #### [facility] [address] [place] [address] Dr. Deepak Greenfield BILIRUBIN CONJUGATED (DIRECT )on 01-12-2022 BILI, CONJUGATED 0.1 mg/dL Normal 0.0-0.2 [facility] Comment on above: Performed By: #### C VDTBH #### [facility] [address] [place] [address] Dr. Deepak Greenfield BILIRUBIN TOTALon 01-12-2022 Bilirubin [Mass/Vol] 0.4 mg/dL Normal 0.2-1.0 [facility] Comment on above: Performed By: #### C VDTBH #### [facility] [address] [place] [address] Dr. Deepak Greenfield CBC AUTO DIFFon 01-12-2022 BASO # 0.0 103/ul Normal 0.0-0.1 [facility] Comment on above: Performed By: #### Karishma House, CMP #### [facility] [address] [place] [address] Dr. Deepak Greenfield Basophils/100 WBC (Bld) 0.3 % Normal 0.2-2.0 [facility] Comment on above: Performed By: #### Karishma House, CMP #### [facility] [address] [place] [address] Dr. Deepak Greenfield EO # 0.1 103/ul Normal 0.0-0.7 [facility] Comment on above: Performed By: #### Karishma House, CMP #### [facility] [address] [place] [address] Dr. Deepak Greenfield Eosinophils/100 WBC (Bld) 1.3 % Normal 0.9-7.0 [facility] Comment on above: Performed By: #### Karishma House, CMP #### [facility] [address] [place] [address] Dr. Deepak Greenfield Erythrocyte distribution width (RBC) [Ratio] 14.2 % Normal 11.0-15.0 [facility] Comment on above: Performed By: #### Karishma House, CMP #### [facility] [address] [place] [address] Dr. Deepak Greenfield Hematocrit (Bld) [Volume fraction] 40.4 % Critically low 42.0-54.0 [facility] Comment on above: Performed By: #### M G, CMP #### [facility] [address] [place] [address] Dr. Deepak Greenfield Hemoglobin (Bld) [Mass/Vol] 13.1 g/dL Critically low 14.0-18.0 [facility] Comment on above: Performed By: #### M G, CMP #### [facility] [address] [place] [address] Dr. Deepak Greenfield IG # 0.01 10e3/ul Normal 0.00-0.03 [facility] Comment on above: Performed By: #### M G, CMP #### [facility] [address] [place] [address] Dr. Deepak Greenfield IG % 0.1 % Normal 0.0-0.5 [facility] Comment on above: Performed By: #### M G, CMP #### [facility] [address] [place] [address] Dr. Deepak Greenfield LYMPH # 3.3 103/ul Normal 1.2-3.8 [facility] Comment on above: Performed By: #### M G, CMP #### [facility] [address] [place] [address] Dr. Deepak Greenfield Lymphocytes/100 WBC (Bld) 42.3 % Normal 20.5-60.0 [facility] Comment on above: Performed By: #### M G, CMP #### [facility] [address] [place] [address] Dr. Deepak Greenfield MANUAL DIFF REQ NO Normal [facility] Comment on above: Performed By: #### M G, CMP #### [facility] [address] [place] [address] Dr. Deepak Greenfield MCH (RBC) [Entitic mass] 32.4 pg Normal 25.9-34.0 [facility] Comment on above: Performed By: #### M G, CMP #### [facility] [address] [place] [address] Dr. Deepak Greenfield MCHC (RBC) [Mass/Vol] 32.4 g/dL Normal 29.9-35.2 [facility] Comment on above: Performed By: #### M G, CMP #### [facility] [address] [address] [address] Deepak Greenfield MCV (RBC) [Entitic vol] 100.0 fL Critically high 80.0-94.0 [facility] Comment on above: Performed By: #### M G, CMP #### [facility] [address] [address] [address] Deepak Greenfield MONO # 0.6 103/ul Normal 0.3-0.8 [facility] Comment on above: Performed By: #### M G, CMP #### [facility] [address] [address] [address] Deepak Greenfield Monocytes/100 WBC (Bld) 7.6 % Normal 1.7-12.0 [facility] Comment on above: Performed By: #### M G, CMP #### [facility] [address] [place] [address] Dr. Deepak Greenfield NEUT # 3.8 103/ul Normal 1.4-6.5 [facility] Comment on above: Performed By: #### M G, CMP #### [facility] [address] [address] [address] Deepak Greenfield Neutrophils/100 WBC (Bld) 48.4 % Normal 43.0-75.0 [facility] Comment on above: Performed By: #### M G, CMP #### [facility] [address] [address] [address] Deepak Greenfield Platelet mean volume (Bld) [Entitic vol] 9.6 fL Normal 9.5-13.5 [facility] Comment on above: Performed By: #### M G, CMP #### [facility] [address] [address] [address] Deepak Greenfield PLT 315 103/ul Normal 150-450 [facility] Comment on above: Performed By: #### M G, CMP #### [facility] [address] [address] [address] Deepak Greenfield RBC 4.04 106/ul Critically low 4.70-6.10 [facility] Comment on above: Performed By: #### M G, CMP #### [facility] [address] [address] [address] Deepak Greenfield WBC 7.9 103/ul Normal 4.0-11.0 [facility] Comment on above: Performed By: #### M G, CMP #### [facility] [address] [place] [address] Dr. Deepak Greenfield DEPAKENE/VALPROICon 01-13-20 DEPAKENE 89.7 ug/ml Normal 50.0-100.0 [facility] Comment on above: Performed By: #### I NFLUAB #### [facility] [address] [place] [address] Dr. Deepak Greenfield PROF CHEM 8 (BAS METB)on Anion gap [Moles/Vol] 12.9 mmol/L Normal [facility] Comment on above: Performed By: #### I NFLUAB #### [facility] [address] [place] [address] Dr. Deepak Greenfield Calcium [Mass/Vol] 8.8 mg/dL Normal 8.5-10.1 [facility] Comment on above: Performed By: #### I NFLUAB #### [facility] [address] [place] [address] Dr. Deepak Greenfield Chloride [Moles/Vol] 103 mmol/L Normal 98-107 [facility] Comment on above: Performed By: #### I NFLUAB #### [facility] [address] [place] [address] Dr. Deepak Greenfield CO2 [Moles/Vol] 28.1 mmol/L Normal 21.0-32.0 [facility] Comment on above: Performed By: #### I NFLUAB #### [facility] [address] [place] [address] Dr. Deepak Greenfield Creatinine [Mass/Vol] 0.58 mg/dL Critically low 0.70-1.30 [facility] Comment on above: Performed By: #### I NFLUAB #### [facility] [address] [address] [address] Deepak Greenfield EGFR-AF TUNISIAN >60 Normal >=60 [facility] Comment on above: Performed By: #### I NFLUAB #### [facility] [address] [address] [address] Deepak Greenfield EGFR-NON AF TUNISIAN >60 Normal >=60 [facility] Comment on above: Performed By: #### I NFLUAB #### [facility] [address] [address] [address] Deepak Greenfield Glucose [Mass/Vol] 117 mg/dL Critically high 74-106 T [facility] Comment on above: Performed By: #### I NFLUAB #### [facility] [address] [address] [address] Deepak Greenfield Potassium [Moles/Vol] 4.0 mmol/L Normal 3.5-5.1 [facility] Comment on above: Performed By: #### I NFLUAB #### [facility] [address] [address] [address] Deepak Greenfield Sodium [Moles/Vol] 140 mmol/L Normal 136-145 [facility] Comment on above: Performed By: #### I NFLUAB #### [facility] [address] [address] [address] Deepak Greenfield Urea nitrogen [Mass/Vol] 7.0 mg/dL Normal 7.0-18.0 [facility] Comment on above: Performed By: #### I NFLUAB #### [facility] [address] [address] [address] Deepak Greenfield Urea nitrogen/Creatinine [Mass ratio] 12.1 mg/mg Normal [facility] Comment on above: Performed By: #### I NFLUAB #### [facility] [address] [address] [address] Deepak Greenfield SGOTon 01-12-2022 AST [Catalytic activity/Vol] 31 U/L Normal 15-37 [facility] Comment on above: Performed By: #### C VDTBH #### [facility] [address] [address] [address] Deepak Greenfield SGPTon 01-12-2022 ALT [Catalytic activity/Vol] 48 U/L Normal 16-63 [facility] Comment on above: Performed By: #### C VDTBH #### [facility] [address] [id number] Deepak Greenfield T PROTEIN SERUMon 01-12-2022 Protein [Mass/Vol] 7.3 g/dL Normal 6.4-8.2 [facility] Comment on above: Performed By: #### B MP #### [facility] [address] [place] [address] Dr. Deepak Greenfield XR CHEST 2 Von [...] by: ANICETO CROCKER Date: 2022-01-06 16:15 Normal [facility] Progress Noteson 12-16-2021 Char Puller Authentication Interface Message Text ----- Thursday, December 16, 2021 at 12:03:50 PM ----- ----- Provider: Shanel Powell Hygienist -- Clinic: [place] ----- [facility], Pt is ready for tx. Pt presented for dental evaluation for future OR. Caregiver in the room. Patient is non-verbal. Severe intellectual disability, seizure disorder Caregiver stated patient is not pain and no complaining. Radiograph taken today: no possible due to patient behavior Case requested for OR. Guardian mother Katia Lopez. [phone]. [facility] [phone] EXT [id number] ( [facility]t) AVS printed and handed flyer for step by step instruction of OR process to Caregiver exam By: Elliott Ham [facility] [place]. OR ----- Signed on Thursday, December 16, 2021 at 12:18:18 PM ----- ----- Provider: Julia - Ap Adams DDS -- Clinic: [place] ----- Normal [facility] XR DEXA BONE DENSITYon 11-20 XR [...] by: MARGARITO DAVIES Date: 2021-11-20 11:42 Normal [facility] US SCROTUMon 11-14-2021 US SCROTUM EXAMINATION: US [...] KRISTIAN BILLINGS Date: 2021-11-14 07:10 Normal [facility] AMMONIAon 10-31-2021 Ammonia (P) [Moles/Vol] 88 umol/L Critically high [facility] Comment on above: Performed By: #### M G, CMP #### [facility] [address] [place] [address] Dr. Deepak Greenfield AMMONIAon 10-30-2021 Ammonia (P) [Moles/Vol] 103 umol/L Critically high [facility] Comment on above: Result Comment: SPEC IMEN SLIGHTLY HEMOLYZED MAY AFFECT AMM RESULT Performed By: #### I NFLUAB #### [facility] [address] [place] [address] Dr. Deepak Greenfield WOUND CULTUREon 10-23-2021 Bacteria identified Aer cx Nom (Unsp spec) Final report Normal [facility] Comment on above: Performed By: #### C XWND #### [facility] [address] [place] [address] Dr. Deepak Greenfield Result 1 Comment Normal [facility] Comment on above: Result Comment: No g rowth in 36 - 48 hours. Performed By: #### C XWND #### [facility] [address] [place] [address] Dr. Deepak Greenfield WOUND CULTUREon 10-02-2021 Bacteria identified Aer cx Nom (Unsp spec) Final report Normal [facility] Comment on above: Performed By: #### A MM #### [facility] [address] [place] [address] Dr. Deepak Greenfield Result 1 Mixed skin omid Normal [facility] Comment on above: Performed By: #### A MM #### [facility] [address] [place] [address] Dr. Deepak Greenfield AMYLASEon 09-22-2021 Amylase [Catalytic activity/Vol] 24 U/L Critically low 25-115 [facility] Comment on above: Performed By: #### C BC #### [facility] [address] [place] [address] Dr. Deepak Greenfield CBC AUTO DIFFon 09-22-2021 BASO # 0.0 103/ul Normal 0.0-0.1 [facility] Comment on above: Performed By: #### C VDTBH #### [facility] [address] [place] [address] Dr. Deepak Greenfield Basophils/100 WBC (Bld) 0.5 % Normal 0.2-2.0 [facility] Comment on above: Performed By: #### C VDTBH #### [facility] [address] [place] [address] Dr. Deepak Greenfield EO # 0.1 103/ul Normal 0.0-0.7 [facility] Comment on above: Performed By: #### C VDTBH #### [facility] [facility] [address] [place] [address] Dr. Deepak Greenfield Eosinophils/100 WBC (Bld) 1.3 % Normal 0.9-7.0 [facility] Comment on above: Performed By: #### C VDTBH #### [facility] [address] [place] [address] Dr. Deepak Greenfield Erythrocyte distribution width (RBC) [Ratio] 13.9 % Normal 11.0-15.0 [facility] Comment on above: Performed By: #### C VDTBH #### [facility] [address] [place] [address] Dr. Deepak Greenfield Hematocrit (Bld) [Volume fraction] 40.0 % Critically low 42.0-54.0 [facility] Comment on above: Performed By: #### C VDTBH #### [facility] [address] [place] [address] Dr. Deepak Greenfield Hemoglobin (Bld) [Mass/Vol] 13.0 g/dL Critically low 14.0-18.0 [facility] Comment on above: Performed By: #### C VDTBH #### [facility] [address] [place] [address] Dr. Deepak Greenfield IG # 0.01 10e3/ul Normal 0.00-0.03 [facility] Comment on above: Performed By: #### C VDTBH #### [facility] [address] [place] [address] Dr. Deepak Greenfield IG % 0.2 % Normal 0.0-0.5 [facility] Comment on above: Performed By: #### C VDTBH #### [facility] [address] [place] [address] Dr. Deepak Greenfield LYMPH # 3.0 103/ul Normal 1.2-3.8 [facility] Comment on above: Performed By: #### C VDTBH #### [facility] [address] [place] [address] Dr. Deepak Greenfield Lymphocytes/100 WBC (Bld) 47.9 % Normal 20.5-60.0 [facility] Comment on above: Performed By: #### C VDTBH #### [facility] [address] [place] [address] Dr. Deepak Greenfield MANUAL DIFF REQ NO Normal [facility] Comment on above: Performed By: #### C VDTBH #### [facility] [address] [place] [address] Dr. Deepak Greenfield MCH (RBC) [Entitic mass] 32.9 pg Normal 25.9-34.0 [facility] Comment on above: Performed By: #### C VDTBH #### [facility] [address] [place] [address] Dr. Deepak Greenfield MCHC (RBC) [Mass/Vol] 32.5 g/dL Normal 29.9-35.2 [facility] Comment on above: Performed By: #### C VDTBH #### [facility] [address] [place] [address] Dr. Deepak Greenfield MCV (RBC) [Entitic vol] 101.3 fL Critically high 80.0-94.0 [facility] Comment on above: Performed By: #### C VDTBH #### [facility] [address] [address] [address] Deepak Greenfield MONO # 0.7 103/ul Normal 0.3-0.8 [facility] Comment on above: Performed By: #### C VDTBH #### [facility] [address] [place] [address] Dr. Deepak Greenifeld Monocytes/100 WBC (Bld) 10.3 % Normal 1.7-12.0 [facility] Comment on above: Performed By: #### C VDTBH #### [facility] [address] [place] [address] Dr. Deepak Greenfield NEUT # 2.5 103/ul Normal 1.4-6.5 [facility] Comment on above: Performed By: #### C VDTBH #### [facility] [address] [place] [address] Dr. Deepak Greenfield Neutrophils/100 WBC (Bld) 39.8 % Critically low 43.0-75.0 [facility] Comment on above: Performed By: #### C VDTBH #### [facility] [address] [place] [address] Dr. Deepak Greenfield Platelet mean volume (Bld) [Entitic vol] 10.1 fL Normal 9.5-13.5 [facility] Comment on above: Performed By: #### C VDTBH #### [facility] [address] [place] [address] Dr. Deepak Greenfield PLT 311 103/ul Normal 150-450 [facility] Comment on above: Performed By: #### C VDTBH #### [facility] [address] [place] [address] Dr. Deepak Greenfield RBC 3.95 106/ul Critically low 4.70-6.10 [facility] Comment on above: Performed By: #### C VDTBH #### [facility] [address] [place] [address] Dr. Deepak Greenfield WBC 6.3 103/ul Normal 4.0-11.0 [facility] Comment on above: Performed By: #### C VDTBH #### [facility] [address] ABD/PELV W CONon [...] JAMIE ALICIA Date: 2021-09-22 02:34 Normal [facility] CT HEAD WO CONon 09-22-2021 CT [...] by: BRITTON FONTENOT Date: 2021-09-22 01:13 Normal [facility] LIPASEon 09-22-2021 Lipase [Catalytic activity/Vol] 28.0 U/L Critically low 73.0-393.0 [facility] Comment on above: Performed By: #### C BC #### [facility] [address] [place] [address] Dr. Deepak Greenfield PROF 14(COMP METB)on 022 Albumin [Mass/Vol] 3.3 g/dL Critically low 3.4-5.0 [facility] Comment on above: Performed By: #### B MP #### [facility] [address] [place] [address] Dr. Deepak Greenfield Albumin/Globulin [Mass ratio] 0.9 {ratio} Normal [facility] Comment on above: Performed By: #### B MP #### [facility] [address] [place] [address] Dr. Deepak Greenfield ALP [Catalytic activity/Vol] 38 U/L Critically low 46-116 [facility] Comment on above: Performed By: #### B MP #### [facility] [address] [address] [address] Deepak Greenfield ALT [Catalytic activity/Vol] 91 U/L Critically high 16-63 [facility] Comment on above: Performed By: #### B MP #### [facility] [address] [place] [address] Dr. Deepak Greenfield Anion gap [Moles/Vol] 10.2 mmol/L Normal [facility] Comment on above: Performed By: #### B MP #### [facility] [address] [address] [address] Deepak Greenfield AST [Catalytic activity/Vol] 50 U/L Critically high 15-37 [facility] Comment on above: Performed By: #### B MP #### [facility] [address] [address] [address] Deepak Greenfield Bilirubin [Mass/Vol] 0.3 mg/dL Normal 0.2-1.0 [facility] Comment on above: Performed By: #### B MP #### [facility] [address] [address] [address] Deepak Greenfield Calcium [Mass/Vol] 8.6 mg/dL Normal 8.5-10.1 [facility] Comment on above: Performed By: #### B MP #### [facility] [address] [address] [address] Deepak Greenfield Chloride [Moles/Vol] 106 mmol/L Normal 98-107 [facility] Comment on above: Performed By: #### B MP #### [facility] [address] [address] [address] Deepak Greenfield CO2 [Moles/Vol] 29.9 mmol/L Normal 21.0-32.0 [facility] Comment on above: Performed By: #### B MP #### [facility] [address] [address] [address] Deepak Greenfield Creatinine [Mass/Vol] 0.65 mg/dL Critically low 0.70-1.30 [facility] Comment on above: Performed By: #### B MP #### [facility] [address] [address] [address] Deepak Greenfield EGFR-AF TUNISIAN >60 Normal >=60 [facility] Comment on above: Performed By: #### B MP #### [facility] [id number] Deepak Greenfield EGFR-NON AF TUNISIAN >60 Normal >=60 [facility] Comment on above: Performed By: #### B MP #### [facility] [address] [address] [address] Deepak Greenfield Globulin (S) [Mass/Vol] 3.7 g/dL Normal [facility] Comment on above: Performed By: #### B MP #### [facility] [address] [address] [address] Deeapk Greenfield Glucose [Mass/Vol] 105 mg/dL Normal 74-106 [facility] Comment on above: Performed By: #### B MP #### [facility] [address] [address] [address] Deepak Greenfield Potassium [Moles/Vol] 4.1 mmol/L Normal 3.5-5.1 [facility] Comment on above: Performed By: #### B MP #### [facility] [address] [place] [address] Dr. Deepak Greenfield Protein [Mass/Vol] 7.0 g/dL Normal 6.4-8.2 [facility] Comment on above: Performed By: #### B MP #### [facility] [address] [place] [address] Dr. Deepak Greenfield Sodium [Moles/Vol] 142 mmol/L Normal 136-145 [facility] Comment on above: Performed By: #### B MP #### [facility] [address] [place] [address] Dr. Deepak Greenfield Urea nitrogen [Mass/Vol] 13.0 mg/dL Normal 7.0-18.0 [facility] Comment on above: Performed By: #### B MP #### [facility] [address] [place] [address] Dr. Deepak Greenfield Urea nitrogen/Creatinine [Mass ratio] 20.0 mg/mg Normal [facility] Comment on above: Performed By: #### B MP #### [facility] [address] [place], [place] [id number] Dr. Deepak Greenfield Vital Signs Date Time Vital Sign Value Performing Clinician Facility 12-16-2022 10:18-0400 Blood Pressure Location Arline Levine [facility] 12-16-2022 10:18-0400 Body temperature 98.06 [degF] Arline Lue [facility] 12-16-2022 10:18-0400 Diastolic blood pressure 78 mm[Hg] Arline Lue [facility] 12-16-2022 10:18-0400 Heart rate 84 /min Arline Lue [facility] 12-16-2022 10:18-0400 Systolic blood pressure 128 mm[Hg] Arline Lue [facility] 12-23-2021 11:30-0400 Body height 157.48 cm Antionette Leonel Other [employer] [facility] [employer] Other 12-23-2021 11:30-0400 Body mass index (BMI) [Ratio] 25.79 kg/m2 Antionette Leonel Other [employer] Other 12-23-2021 11:30-0400 Body temperature 98.5 [degF] Antionette Leonel Other [employer] Other 12-23-2021 11:30-0400 Body weight 63.96 kg Antionette Leonel Other [employer] Other 12-23-2021 11:30-0400 Diastolic blood pressure 70 mm[Hg] Antionette Leonel Other [employer] Other 12-23-2021 11:30-0400 Respiratory rate 20 /min Antionette Leonel Other [employer] Other 12-23-2021 11:30-0400 SaO2% (BldA) [Mass fraction] 99 % Antionette Castaneda Other [employer] [facility] [employer] Other 12-23-2021 11:30-0400 Systolic blood pressure 120 mm[Hg] Antionette Castaneda Other [facility] [employer] Other 10-22-2021 10:29-0400 Blood Pressure Location Arline Lue [facility] 10-22-2021 10:29-0400 Diastolic blood pressure 92 mm[Hg] Arline Lue [facility] 10-22-2021 10:29-0400 Heart rate 100 /min Arline Lue [facility] 10-22-2021 10:29-0400 Respiratory rate 16 /min Arline Lue [facility] [employer] 10-22-2021 10:29-0400 Systolic blood pressure 137 mm[Hg] Arline Lue [facility] Encounters Encounter Date Encounter Type Care Provider Facility Start: 01-11-2024 End: 01-11-2024 ambulatory [facility] Work Phone: Start: 01-11-2024 End: 01-11-2024 Patient encounter procedure [facility] Work Phone: Start: 11-07-2023 End: 11-07-2023 Letter encounter Abundio Mares DDS Work Phone: [facility] Start: 08-25-2023 End: 08-25-2023 ambulatory RODRIGUEZ VANG Not Available Start: 07-06-2023 End: 07-06-2023 ambulatory [facility] Work Phone: Start: 07-06-2023 End: 07-06-2023 Patient encounter procedure [facility] Work Phone: Start: 01-05-2023 End: 01-05-2023 ambulatory Antionette Leonel Other [employer] Other Start: 01-05-2023 Office outpatient visit 25 minutes Antionette Leonel [facility] Start: 12-16-2022 End: 12-17-2022 ambulatory Arline Levine Facility:[facility] Start: 12-16-2022 End: 12-16-2022 Patient encounter procedure Arline Levine [facility] Start: 08-04-2022 End: 08-04-[address] FAM VENTURA Facility:[facility] Start: 07-29-2022 End: 08-02-2022 Evaluation and management of inpatient DR FAM VENTURA Facility:[facility] Start: 07-26-2022 End: 07-27-[address] FAM VENTURA Facility:[facility] Start: 07-23-2022 End: 07-24-2022 ambulatory FAM VENTURA Facility:[facility] Start: 07-23-2022 End: 07-23-2022 Patient encounter procedure [facility] Start: 06-23-2022 End: 06-23-2022 ambulatory Antionette Leonel Other [employer] Other Start: 06-23-2022 Office outpatient visit 25 minutes Antionette Leonel [facility] Start: 06-03-2022 End: 06-04-[address] FAM VENTURA Facility:[facility] Start: 05-08-2022 Letter encounter Abundio Mares DDS Work Phone: [facility] Start: 04-22-2022 End: 04-23-[address] FAM VENTURA Facility:[facility] Start: 03-19-2022 End: 03-20-[address] FAM VENTURA Facility:[facility] Start: 03-10-2022 End: 03-11-[address] FAM VENTURA Facility:[facility] Start: 01-24-2022 End: 01-24-[address] DIAMOND BURGER . Facility:[facility] Start: 01-18-2022 End: 01-18-2022 ambulatory ANJELICA DOLL . Facility:[facility] Start: 01-13-[address] RODRIGUEZ VANG [facility] ty:[facility] Start: 01-12-2022 End: 01-13-[address] RODRIGUEZ VANG Facility:[facility] Start: 01-06-2022 End: 01-07-[address] AFM VENTURA Facility:[facility] Start: 12-23-2021 End: 12-23-2021 ambulatory Antionette Leonel Other [employer] Other Start: 12-23-2021 Office outpatient visit 25 minutes Antionette Leonel [facility] Start: 12-16-2021 End: 12-17-2021 ambulatory UNKNOWN PROVIDER Facility:[facility] Start: 12-16-2021 End: 12-17-2021 Patient encounter procedure Mora Ulloaaime [facility] Work Phone: [facility] Start: 12-10-2021 End: 12-10-2021 Patient encounter procedure Arline Levine [facility] Start: 11-20-2021 End: 11-21-[address] FAM VENTURA Facility:[facility] Start: 11-13-2021 End: 11-14-2021 ambulatory ARLINE LEVINE . Facility:[facility] Start: 10-31-2021 End: 11-01-[address] FAM VENTURA Facility:[facility] Start: 10-22-2021 End: 10-22-2021 Patient encounter procedure Arline Levine [facility]ван Start: 10-21-2021 End: 10-21-[address] FAM VENTURA Facility:[facility] Start: 09-29-2021 End: 09-29-[address] FAM VENTURA Facility:[facility] Start: 09-22-2021 End: 09-22-2021 ambulatory ABBI DANIEL Facility:[facility] Plan of Treatment Date Care Activity Detail Author Start: 02-01-2030 Shingles (RZV) Vacci ne (1 of 2) Shingles (RZV) Vaccine (1 of 2) [facility] Start: 01-18-2024 Influenza vaccination Influenza Vacc ine (#1) [facility] Start: 12-18-2022 COVID-19 Vaccine ( season) COVID-19 Vaccine ( season) [facility] Start: 01-17-2022 Influenza vaccination Influenza Vacc ine (#1) [facility] Start: 02-01-2015 Lipid panel [facility] Start: 05-20-2012 Annual wellness visit Annual [facility] Visit ([id number]) [facility] Start: 02-01-2007 HPV Vaccine (optiona l start 27-45 years) HPV Vaccine (optional start 27-45 years) [facility] Start: 02-01-1999 Hepatitis A (HAV) Va ccine (optional start 19+ years) Hepatitis A (HAV) Vaccine (optional start 19+ years) [facility] Start: 02-01-1999 Hepatitis B vaccination Hepati tis B (HBV) Vaccine (1 of 3 - 19+ 3-dose series) [facility] Start: 02-01-1998 Hepatitis C screening Hepatitis C An tibody [facility] Start: 02-01-1998 Tetanus + diphtheria + acellular pertussis vaccine (product) Tdap Booster [facility] Start: 02-01-1995 HIV screening [facility] Start: 1980 COVID-19 Vaccine (#1) COVID-19 [facility] ne (#[facility] Immunizations Immunization Date Immunization Notes Care Provider Fa patricety 03-04-2020 pneumococcal conjuga te vaccine, 13 valent Mora Urmetz RDH Work Phone: [facility] 01-26-2018 influenza, injectabl e, quadrivalent, preservative free Mora Urmetz RDH Work Phone: [facility] 01-26-2018 influenza virus vaccine, unspecified formulation Mora Urmetz RDH Work Phone: [facility] 02-10-2017 influenza virus vaccine, unspecified formulation Arline Lue [facility] 02-10-2017 influenza, injectabl e, quadrivalent, contains preservative Mora Urmetz RDH Work Phone: [facility] 02-07-2015 influenza virus vaccine, unspecified formulation Arline Lue [facility] 02-07-2015 influenza, injectabl e, quadrivalent, preservative free Mora Urmetz RDH Work Phone: [facility] 10-23-2014 pneumococcal polysaccharide vaccine, 23 valent Mora Urmetz RDH Work Phone: [facility] 12-31-2010 influenza virus vaccine, unspecified formulation Arline Lue [facility] 12-31-2010 influenza, seasonal, injectable Mora Urmetz RDH Work Phone: [facility] 03-06-2009 novel [id number], preservative-free, injectable Mora Urmetz RDH Work Phone: [facility] 02-09-2008 influenza virus vaccine, whole virus Mora Urmetz RDH Work Phone: [facility] 02-09-2008 influenza, whole Arline Lue [facility] NEGATED: Highlighted row has not occurred!12-10-2021 SARS-CoV-2 mRNA (tozinameran 5y-11y) vaccine Arline Levine [facility] [place] Payers Date Payer Category Payer Medicaid [id number] 2011 Medicare MEDICARE MEDICAR E PART A & B [id number] 2011-Present [address] [place] [address] Medicare [id number] 1980 Unknown [id number] 2.16.840.1.176798.3.579.2.732 1980 Unknown [id number] 2.16.840.1.626957.3.579.2.593 1980 Unknown [id number] 2.16.840.1.295638.3.579.2.593 1980 Unknown [id number] 2.16.840.1.208747.3.579.2.593 1980 Unknown [id number] 2.16.840.1.882499.3.579.2.593 1980 Unknown [id number] 2.16.840.1.907017.3.579.2.727 1980 Unknown [id number] 2.16.840.1.044900.3.579.2.727 1980 Unknown [id number] 2.16.840.1.699786.3.579.2.1259 1959 Medicaid [id number] 1959 Medicare [id number] 2.16.840.1.322082.19 1953 Unknown [id number] 2.16.840.1.725120.3.579.2.593 1953 Unknown [id number] 2.16.840.1.316230.3.579.2.593 1953 Unknown [id number] 2.16.840.1.573943.3.579.2.593 1953 Unknown [id number] 2.16.840.1.147752.3.579.2.593 1953 Unknown [id number] 2.16.840.1.534418.3.579.2.593 1953 Unknown [id number] 2.16.840.1.219576.3.579.2.593 1953 Unknown [id number] 2.16.840.1.679232.3.579.2.593 1953 Unknown [id number] 2.16.840.1.837769.3.579.2.593 1953 Unknown [id number] 2.16.840.1.281122.3.579.2.593 1953 Unknown [id number] 2.16.840.1.540016.3.579.2.593 1953 Unknown [id number] 2.16.840.1.784864.3.579.2.593 1953 Unknown [id number] 2.16.840.1.577444.3.579.2.593 1953 Unknown [id number] 2.16.840.1.656510.3.579.2.593 1953 Unknown [id number] 2.16.840.1.861481.3.579.2.593 Self-pay Self Pay [id number] Social History Date Type Detail Facility Tobacco smoking status No Smoking Status Entered [facility] Sex Assigned At Male [facility] Start: 03-28-2020 Tobacco smoking status NHIS Tobacco smoking consumption unknown [facility] Start: 1980 [facility] Tobacco smoking status No Smoking Status [facility] Start: 12-16-2022 Tobacco smoking status Never smoked tobacco (finding) [facility] Tobacco smoking status Never [facility] Start: 1980 Sex Assigned At Male F [facility] Functional Status Date Assessment Result Facility 12-16-2022 Functional Status N/A [facility] 12-10-2021 Functional Status N/A [facility] 10-22-2021 Functional Status N/A [facility] Clinical Notes 10-22-2021 to 01-05-2023 Note Date & Type Note Facility 01-05-2023 Evaluation note Encounter Date Diagnosis Assessment Notes Dec, COPD (chronic obstructive pulmonary disease) (ICD-10 - J44.9) [facility] Other 08-30-2023 Hospital Discharge instructions Patient Education [...] provider. Document Revised: 08/14/2021 Document Reviewed: 08/14/2021 [employer] Patient Education 2022 [employer]ident [employer]. Follow Up Care 12/10/2021 11:51:23 With:Abner BYRNE, JUNIOR Hawk, URO Address: When: Unknown Comments:LENORA [facility] 03-07-2023 Evaluation note* Encounter Date Diagnosis Assessment Notes Treatment Notes Treatment Clinical Notes Jun, COPD (chronic obstructive pulmonary disease) (ICD-10 - J44.9) Continue with respiratory regemin, including VEST therapy, as you currently are doing. Call office with respiratory questions or concerns. [facility] Other 09-06-2022 Evaluation note* Encounter Date Diagnosis Assessment Notes Treatment Notes Treatment Clinical Notes Dec, COPD (chronic obstructive pulmonary disease) (ICD-10 - J44.9) Continue with VEST therapy twice a day. Ok to increase to TID if needed. [facility] Other 08-30-2022 NotePt presented today for OR evaluation. Limited eval was completed. Pt's case is not urgent updated contact information and placed Pt on OR list. Step by step process for OR flyer was given to caregiver. Please wait for phone call from OR coordinator.[facility] [employer] [id number] Instructions* Patient Instructions * Mora Powell RDH - 12/16/2021 11:57 AM EDT Pt presented today for OR evaluation. Limited eval was completed. Pt's case is not urgent updated contact information and placed Pt on OR list. Step by step process for OR flyer was given to caregiver. Please wait for phone call from OR coordinator. documented in this [id number] History of Present illness Narrative* Mora Powell RDH - 12/16/2021 11:42 AM EDT ----- Thursday, December 16, 2021 at 12:03:50 PM ----- ----- Provider: [id number] Heriberto Powell Hygienist -- Clinic: [place] ----- [facility], Pt is ready for tx. Pt presented for dental evaluation for future OR. Caregiver in the room. Patient is non-verbal. Severe intellectual disability, seizure disorder Caregiver stated patient is not pain and no complaining. Radiograph taken today: no possible due to patient behavior Case requested for OR. Guardian mother Katia Lopez. [phone]. [facility] [phone] [id number] ( [facility] pt's appt) AVS printed and handed flyer for step by step instruction of OR process to Caregiver exam By: Elliott Ham RD [place]. OR ----- Signed on Thursday, December 16, 2021 at 12:18:18 PM ----- ----- Provider: [id number] - Ap Adams DDS -- Clinic: [place] ----- documented in this [id number] Hospital Discharge instructions Patient Education 12/10/2021 11:47:35 [...] nerve stimulation). For women, using a medical center representative to prevent urine leaks. This is a [...] right after experiencing incontinence. General instructions Take [id number] and prescription medicines only as told by [...] 05/13/2005 Document Revised: 04/15/2018 Document Reviewed: 07/15/2017 [employer] Patient Education 2020 [employer]. Follow Up Care 10/22/2021 11:38:20 With:Abner BYRNE, JUNIOR Hawk, URO Address: When:1 year Comments:W/ renal US [facility] 07-06-2022 Hospital Discharge instructions Patient Education [...] nerve stimulation). For women, using a medical center representative to prevent urine leaks. This is a [...] right after experiencing incontinence. General instructions Take xmcq-udl-[id number] and prescription medicines only as told by [...] 05/13/2005 Document Revised: 04/15/2018 Document Reviewed: 07/15/2017 [employer] Patient Education 2020 [employer]. 10/22/2021 11:42:30 Renal Mass Renal Mass A [...] provider gives to you. In general: Take jrca-hdj-vulyict and prescription medicines only as told by [...] 10/31/2014 Document Revised: 05/12/2018 Document Reviewed: 05/12/2018 [employer] Patient Education [employer]. Follow Up Care 09/22/2021 14:10:46 With:Arline Levine MD, UR, URO Address: When:1 month [facility] evaluation + Plan note Future Appointments Appointment Date:11/19/2021 10:00:00 AM Scheduled Provider:Arline Levine MD Location:[facility] Appointment Type:URO Office Visit [facility] evaluation + Plan note Future Appointments Appointment Date:12/16/2022 10:15:00 AM Scheduled Provider:Arline Levine MD Location:[facility] Appointment Type:URO Office Visit [facility] evaluation note* Diagnosis Onset Date Resolution Status COPD (chronic obstructive pulmonary disease) acute Severe intellectual disability [facility] Work Phone: History general Narrative - Reported* Type Description Date Medical History Mental retardation Medical History Seizure Disorder Medical History Tristen Syndrome Medical History ADD Medical History Hypothyroidism Medical History Spastic Quadraparesis Medical History Osteoporosis Medical History Tristen-Beuren syndrome Medical History Seizure disorder Medical History Seizure disorder Medical History COPD Surgical History VNS REPLACED 2021 [employer] Other Hospital course Narrative No data available for this section [facility] Hospital Discharge instructions No data available for this section [facility] No data available for this section [facility] Summary Purpose Family History No Family History Records FoundNo Family History Records FoundNo Family History Records FoundNo Family History Records Found Advance Directives Advance Directive Response Recorded Date/ Time Advance Directives No March 4:51pm Advance Directive Response Recorded Date/ Time Advance Directives Yes July 05 10:35am Chief Complaint and Reason for Visit Chief Complaint 6 Month f/u- COPD Reason for Visit COPD (chronic obstru ctive pulmonary disease) Severe intellectual disability Chief Complaint H mo f/u COPD Reason for Visit COPD (chronic obstru ctive pulmonary disease) Severe intellectual disability Additional Source Comments Care Team (unrecognized sect ion and content) Research Hydraulic Engineer Relationship Specialty Start Date End Date Abundio Mares DDS [address] [place] [id number] [facility] 02/23/20 Research Hydraulic Engineer Relationship Specialty Start Date End Date Abundio Mares DDS [address] [place] [address] [facility] 02/23/20 Team Status: Active Member Role Status Dates Fam Ventura DO Primary Care Provider Active Team Status: Inactive Member Role Status Dates Fam Ventura DO Primary Care Provider Active Start: July 06, 2023 End: July 06, 2023 Antionette Castaneda [facility]N [facility] Attending Provider Active Start: July 06, 2023 End: July 06, 2023 Research Hydraulic Engineer Relationship Specialty Start Date End Date Abundio Mares [address] [place] [address] Resident [facility] 02/23/20 Team Status: Inactive Member Role Status Dates Fam A Ventura , DO Primary Care Provider Active Start: January 11, 2024 End: January 11, 2024 Antionette Castaneda APRN ACNP-BC Attending Provider Active Start: January 11, 2024 End: January 11, 2024 [facility] Active Start: atul 2023 End: January 11, 2024 (unrecognized sect ion and content) No Status Records FoundNo Status Records FoundNo Status Records FoundNo Status Records Found INFORMATION SOURCE (unrecogn ized section and content) DATE CREATED AUTHOR 12/18/2021 [facility] [employer] [facility] DATE CREATED AUTHOR AUTHOR'S ORGANIZ ATION 08/05/2022 [facility] DATE CREATED AUTHOR AUTHOR'S ORGANIZ ATION 01/26/2023 [facility] DATE CREATED AUTHOR AUTHOR'S ORGANIZ ATION 08/27/2023 [facility] EPIC REASON FOR VISIT (unrecogniz ed [...] BE BASED ON THE PRIMARY CLINICAL RECORDS. [employer] provides no warranty or guarantee of the accuracy or completeness of information in this document.
== END 2024-02-29 09:26 | disposition home or self-care (01) ==
LOC: RAD 09:25
PROVIDERS: PCP Family Medicine; Visit Provider Family Medicine
DX: M81.0 Age-related osteoporosis without current pathological fracture (principal); Z79.899 Other long term (current) drug therapy
CPT/HCPCS: 77080

== ENCOUNTER 2024-02-29 09:42 | Outpatient (OUT) | payer MEDICARE, MEDICAID, SELFPAY ==
--- OUTSIDE RECORDS SUMMARY | 2024-02-29 10:05 | XMS_ITS | CCD ---
Author Organization [facility] Care Team Providers Care Film Projector Operator Name Role Phone FAM VENTURA Primary Care [...] Duran Primary Care Unavailable LOYA ., DR BIRDGET Foster Consulting Unavailable LOYA ., DR BRIDGET [...] CHELE Duran Attending Unavailable NADERER, DR CHELE Durna Admitting Unavailable ANICETO GARCIA Consulting Unavailable DIAB [...] FAM Duran Consulting Unavailable VENTURA, DR FAM Duarn Primary Care Unavailable VENTURA, DR FAM Duran [...] FAM Duran Consulting Unavailable VENTURA, DR FAM Druan Admitting Unavailable VENTURA, DR FAM Duran Primary [...] ulanate] Drug Allergy Unknown [facility] (10 sources) Phenytoin; Translations: [phenytoin] Drug Allergy 01-06-20 23 Unknown, Unknown Reaction [facility] (14 sources) Promethazine; Translations: [promethazine] Drug Allergy 05-12-19 17 Unknown, Unknown Reaction [facility] (4 sources) Phenytoin; Translations: [PHENYTOIN SODIUM EXTENDED] Drug Allergy 05-12-19 17 [facility] (4 sources) AMOXICILLIN-POT CLAVULANATE; Translations: [AMOXICILLIN-POT CLAVULANATE] Propensity to adverse reactions to drug (disorder) 05-12-19 17 [facility] (1 source) 4-Aminobenzoic Acid Drug Allergy [facility] (1 source) Amoxicillin / Clavulanate Drug Allergy 05-29-19 14 [facility] (1 source) Levamisole Drug Allergy 05-29-19 14 [facility] (1 source) metroNIDAZOLE Drug Allergy [facility] (1 source) Phenytoin Drug Allergy 05-29-19 14 [facility] (1 source) remdesivir (investigational use) Drug allergy (disorder) [facility] (2 sources) Amoxicillin Drug Allergy 01-06-20 23 Unknown Reaction [facility] (1 source) Clavulanate Drug Allergy 01-06-20 23 Unknown Reaction [facility] Medications Current Medications Medication Drug Class(es) Dates Sig (Normalized) Sig (Original) Acetaminophen (8 sources) Start: 12-16-2022 acetaminophen Refills(s) 0 Start Date: 12/16/22 Status: Ordered Start: 03-28-2020 Acetaminophen Active 650 MG AL EVERY 4-6 HOURS March 28, 2020 1:00am [...] 10:24am 10MG RECTAL GEL, PATIENT TAKES IT AL - wont let me save without route. [...] 2020 1:00am take 1 capsule by mo [facility] every twenty-four hours Docusate Sodium 100 MG [...] 02/23/2020 Active take 2 tablets by mo [facility] in the morning, then take 3 tablets [...] 07/04/15 Status: Ordered take 1 tablet by [place] every twenty-four hours Levothyroxine Sodium 150 MCG 1 tablet Orally Once a day Active linaclotide 0.145 mg oral capsule (13 sources) Guanylate Cyclase-C Agonist Start: 12-16-2022 Linzess 145 mcg oral capsule Start Date: 12/16/22 Status: Ordered Start: 02-23-2020 take 1 capsule by mo [facility] once daily in the morning Linaclotide (Linzess) [...] Ordered Normal saline (7 sources) Start: 07-05-2015 [place] Saline Alpa al Gel Nasal, TID, Refill(s) 0, Dry nasal passages Start Date: 07/05/15 Status: Ordered [place] Saline Nasal Gel Nasally Active omeprazole 40 [...] bid, Prophylaxis Start Date: 07/05/15 Status: Ordered [id number] oral powder for reconstitution (1 source) Start: 023 [id number] oral powder for reconstitution Start Date: 12/16/22 Status: Ordered polyethylene glycol 3350 18201 mg powder for oral solution (4 sources) [...] 0 Start Date: 10/22/21 Status: Ordered sennosides, mcc 8.6 mg oral tablet (2 sources) Start: [...] e a day Active Sodium Chloride-Aloe Vera ([place] Saline) gel (2 sources) Start: 06-28-2023 Sodium Chlorid e-Aloe Vera ([place] Saline) gel Active 1 APPLIC TOPICAL Daily [...] 06-30-2013 Chronic Other aftercare (5 sources) Other director long term care (current) drug therapy; 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 Normal [facility] Patient Educationon 12-17-19 Patient Education Obstetrics [...] provider. Document Revised: 08/14/2021 Document Reviewed: 08/14/2021 [employer] Patient Education ? 2022 [employer] Normal [facility] Physician Orderon 12-16-2022 Physician Order [id number] .[id number]:127 Normal [facility] RAD - Ultrasound Reporton RAD - Ultrasound Report [id number] .[id number]:127 Normal [facility] Urology Office/Clinic Noteon 12-16-2022 Urology Office/Clinic [...] of retractile testes. Pt currently resides in [facility]. CBC/CMP 08/01/22 1. Retractile testis (Q55.22: [...] Eye-Both, QID atorvastatin, 10 mg, Oral, Daily [place] Saline Nasal Gel, Nasal, TID azelastine nasal 137 mcg/inh spray, 2 spray(s), Nasal, As (more content not included)... Normal [facility] Comment on above: Result Comment: Elec [...] GUANAKITO MEADE Date: 2022-08-04 18:50 Normal [facility] AMMONIAon 08-02-2022 Ammonia (P) [Moles/Vol] 87 umol/L Critically high - [facility] Comment on above: Performed By: #### B MP #### [facility] [address] [place] [address] Dr. Deepak Greenfield AMMONIAon 08-01-2022 Ammonia (P) [Moles/Vol] 42 umol/L Critically high [facility] Comment on above: Performed By: #### M Lacy, CMP #### [facility] [address] [place] [address] Dr. Deepak Greenfield CBC W MANUAL DIFFon 08-02-19 23 ATYPICAL LYMPH # 0.41 103/ul Normal [facility] Comment on above: Performed By: #### M Lcay, CMP #### [facility] [address] [place] [address] Dr. Deepak Greenfield ATYPICAL LYMPH % 7 % Normal [facility] Comment on above: Performed By: #### M G, CMP #### [facility] [address] [place] [address] Dr. Deepak Greenfield BAND # 0.0 103/ul Normal 0.0-0.3 [facility] Comment on above: Performed By: #### M G, CMP #### [facility] [address] [place] [address] Dr. Deepak Greenfield BAND % 0 % Normal 0-5 [facility] Comment on above: Performed By: #### M G, CMP #### [facility] [address] [place] [address] Dr. Deepak Greenfield BASOM # 0.00 103/ul Normal 0.00-0.10 [facility] Comment on above: Performed By: #### M G, CMP #### [facility] [address] [place] [address] Dr. Deepak Greenfield BASOM % 0.0 % Critically low 0.2-2.0 [facility] Comment on above: Performed By: #### M G, CMP #### [facility] [address] [place] [address] Dr. Deepak Greenfield BLAST # Normal [facility] Comment on above: Performed By: #### M G, CMP #### [facility] [address] [place] [address] Dr. Deepak Greenfield BLAST % Normal [facility] Comment on above: Performed By: #### M G, CMP #### [facility] [address] [place] [address] Dr. Deepak Greenfield CORRECTED WBC Normal 4.0-11.0 [facility] Comment on above: Performed By: #### M G, CMP #### [facility] [address] [place] [address] Dr. Deepak Greenfield EOS # 0.06 103/ul Normal 0.00-0.70 [facility] Comment on above: Performed By: #### M G, CMP #### [facility] [address] [place] [address] Dr. Deepak Greenfield EOS% 1.0 % Normal 0.9-7.0 [facility] Comment on above: Performed By: #### M G, CMP #### [facility] [address] [place] [address] Dr. Deepak Greenfield HCT 37.6 % Critically low 42.0-54.0 [facility] Comment on above: Performed By: #### M G, CMP #### [facility] [address] [place] [address] Dr. Deepak Greenfield HGB 12.3 g/dl Critically low 14.0-18.0 [facility] Comment on above: Performed By: #### M G, CMP #### [facility] [address] [place] [address] Dr. Deepak Greenfield LYMPHM # 1.91 103/ul Normal 1.20-3.80 [facility] Comment on above: Performed By: #### M G, CMP #### [facility] [address] [place] [address] Dr. Deepak Greenfield LYMPHM% 33.0 % Normal 20.5-60.0 [facility] Comment on above: Performed By: #### M G, CMP #### [facility] [address] [place] [address] Dr. Deepak Greenfield MCH 31.7 pg Normal 25.9-34.0 [facility] Comment on above: Performed By: #### M G, CMP #### [facility] [address] [place] [address] Dr. Deepak Greenfield MCHC 32.7 g/dl Normal 29.9-35.2 [facility] Comment on above: Performed By: #### M G, CMP #### [facility] [address] [place] [address] Dr. Deepak Greenfield MCV 96.9 fL Critically high 80.0-94.0 [facility] Comment on above: Performed By: #### M G, CMP #### [facility] [address] [place] [address] Dr. Deepak Greenfield METAMYELOCYTE # Normal [facility] Comment on above: Performed By: #### M G, CMP #### [facility] [address] [place] [address] Dr. Deepak Greenfield METAMYELOCYTE % Normal [facility] Comment on above: Performed By: #### M G, CMP #### [facility] [address] [place] [address] Dr. Deepak Greenfield MONOM# 0.29 103/ul Critically low 0.30-0.80 [facility] Comment on above: Performed By: #### M G, CMP #### [facility] [address] [place] [address] Dr. Deepak Greenfield MONOM% 5.0 % Normal 1.7-12.0 [facility] Comment on above: Performed By: #### M G, CMP #### [facility] [address] [address] [address] Deepak Greenfield MPV 11.0 fL Normal 9.5-13.5 [facility] Comment on above: Performed By: #### M G, CMP #### [facility] [address] [address] [address] Deepak Greenfield MYELOCYTE # Normal [facility] Comment on above: Performed By: #### M G, CMP #### [facility] [address] [address] [address] Deepak Greenfield MYELOCYTE % Normal [facility] Comment on above: Performed By: #### M G, CMP #### [facility] [address] [place] [address] Dr. Deepak Greenfield NRBC Normal [facility] Comment on above: Performed By: #### M G, CMP #### [facility] [address] [place] [address] Dr. Deepak Greenfield PLT 208 103/ul Normal 150-450 [facility] Comment on above: Performed By: #### M G, CMP #### [facility] [address] [address] [address] Deepak Greenfield RBC 3.88 106/ul Critically low 4.70-6.10 [facility] Comment on above: Performed By: #### M G, CMP #### [facility] [address] [address] [address] Deepak Greenfield RDW 12.9 % Normal 11.0-15.0 [facility] Comment on above: Performed By: #### M G, CMP #### [facility] [address] [place] [address] Dr. Deepak Greenfield SEG # 3.13 103/ul Normal 1.40-6.50 [facility] Comment on above: Performed By: #### M G, CMP #### [facility] [address] [address] [address] Deepak Greenfield SEG % 54.0 % Normal 43.0-75.0 [facility] Comment on above: Performed By: #### M G, CMP #### [facility] [address] [address] [address] Deepak Greenfield STOMATOCYTES 3+ Normal [facility] Comment on above: Performed By: #### M G, CMP #### [facility] [address] [address] [address] Deepak Greenfield WBC 5.8 103/ul Normal 4.0-11.0 [facility] Comment on above: Performed By: #### M G, CMP #### [facility] [address] [place] [address] Dr. Deepak Greenfield PROF CHEM 8 (BAS METB)on Anion gap [Moles/Vol] 16.1 mmol/L Normal [facility] Comment on above: Performed By: #### B MP #### [facility] [address] [place] [address] Dr. Deepak Greenfield Calcium [Mass/Vol] 9.3 mg/dL Normal 8.5-10.1 [facility] Comment on above: Performed By: #### B MP #### [facility] [address] [place] [address] Dr. Deepak Greenfield Chloride [Moles/Vol] 105 mmol/L Normal 98-107 [facility] Comment on above: Performed By: #### B MP #### [facility] [address] [place] [address] Dr. Deepak Greenfield CO2 [Moles/Vol] 27.6 mmol/L Normal 21.0-32.0 [facility] Comment on above: Performed By: #### B MP #### [facility] [address] [place] [address] Dr. Deepak Greenfield Creatinine [Mass/Vol] 0.96 mg/dL Normal 0.70-1.30 [facility] Comment on above: Performed By: #### B MP #### [facility] [address] [place] [address] Dr. Deepak Greenfield EGFR-AF [place] >60 Normal >=60 [facility] Comment on above: Performed By: #### B MP #### [facility] [address] [address] [address] Deepak Greenfield EGFR-NON AF [place] >60 Normal >=60 [facility] Comment on above: Performed By: #### B MP #### [facility] [address] [address] [address] Deepak Greenfield Glucose [Mass/Vol] 160 mg/dL Critically high 74-106 [facility] Comment on above: Performed By: #### B MP #### [facility] [address] [address] [address] Deepak Greenfield Potassium [Moles/Vol] 3.7 mmol/L Normal 3.5-5.1 [facility] Comment on above: Performed By: #### B MP #### [facility] [address] [address] [address] Deepak Greenfield Sodium [Moles/Vol] 145 mmol/L Normal 136-145 [facility] Comment on above: Performed By: #### B MP #### [facility] [address] [address] [address] Deepak Greenfield Urea nitrogen [Mass/Vol] 5.0 mg/dL Critically low 7.0-18.0 [facility] Comment on above: Performed By: #### B MP #### [facility] [address] [address] [address] Deepak Greenfield Urea nitrogen/Creatinine [Mass ratio] 5.2 mg/mg Normal [facility] Comment on above: Performed By: #### B MP #### [facility] [address] [address] [address] Deepak Greenfield AMMONIAon 07-31-2022 Ammonia (P) [Moles/Vol] 94 umol/L Critically high 11-32 [facility] Comment on above: Performed By: #### M G, CMP #### [facility] [address] [address] [address] Deepak Greenfield CBC AUTO DIFFon 07-31-2022 BASO # 0.0 103/ul Normal 0.0-0.1 [facility] Comment on above: Performed By: #### B MP #### [facility] [address] [address] [address] Deepak Greenfield Basophils/100 WBC (Bld) 0.1 % Critically low 0.2-2.0 [facility] Comment on above: Performed By: #### B MP #### [facility] [address] [address] [address] Deepak Greenfield EO # 0.0 103/ul Normal 0.0-0.7 [facility] Comment on above: Performed By: #### B MP #### [facility] [address] [place] [address] Dr. Deepak Greenfield Eosinophils/100 WBC (Bld) 0.0 % Critically low 0.9-7.0 [facility] Comment on above: Performed By: #### B MP #### [facility] [address] [place] [address] Dr. Deepak Greenfield Erythrocyte distribution width (RBC) [Ratio] 13.1 % Normal 11.0-15.0 [facility] Comment on above: Performed By: #### B MP #### [facility] [address] [place] [address] Dr. Deepak Greenfield Hematocrit (Bld) [Volume fraction] 32.4 % Critically low 42.0-54.0 [facility] Comment on above: Performed By: #### B MP #### [facility] [address] [place] [address] Dr. Deepak Greenfield Hemoglobin (Bld) [Mass/Vol] 10.9 g/dL Critically low 14.0-18.0 [facility] Comment on above: Performed By: #### B MP #### [facility] [address] [place] [address] Dr. Deepak Greenfield IG # 0.02 10e3/ul Normal 0.00-0.03 [facility] Comment on above: Performed By: #### B MP #### [facility] [address] [place] [address] Dr. Deepak Greenfield IG % 0.3 % Normal 0.0-0.5 [facility] Comment on above: Performed By: #### B MP #### [facility] [address] [address] [address] Deepak Greenfield LYMPH # 2.7 103/ul Normal 1.2-3.8 [facility] Comment on above: Performed By: #### B MP #### [facility] [address] [place] [address] Dr. Deepak Greenfield Lymphocytes/100 WBC (Bld) 38.9 % Normal 20.5-60.0 [facility] Comment on above: Performed By: #### B MP #### [facility] [address] [place] [address] Dr. Deepak Greenfield MANUAL DIFF REQ NO Normal [facility] Comment on above: Performed By: #### B MP #### [facility] [address] [place] [address] Dr. Deepak Greenfield MCH (RBC) [Entitic mass] 32.3 pg Normal 25.9-34.0 [facility] Comment on above: Performed By: #### B MP #### [facility] [address] [place] [address] Dr. Deepak Greenfield MCHC (RBC) [Mass/Vol] 33.6 g/dL Normal 29.9-35.2 [facility] Comment on above: Performed By: #### B MP #### [facility] [address] [place] [address] Dr. Deepak Greenfield MCV (RBC) [Entitic vol] 96.1 fL Critically high 80.0-94.0 [facility] Comment on above: Performed By: #### B MP #### [facility] [address] [place] [address] Dr. Deepak Greenfield MONO # 0.3 103/ul Normal 0.3-0.8 [facility] Comment on above: Performed By: #### B MP #### [facility] [address] [place] [address] Dr. Deepak Greenfield Monocytes/100 WBC (Bld) 4.9 % Normal 1.7-12.0 [facility] Comment on above: Performed By: #### B MP #### [facility] [address] [place] [address] Dr. Deepak Greenfield NEUT # 3.9 103/ul Normal 1.4-6.5 [facility] Comment on above: Performed By: #### B MP #### [facility] [address] [place] [address] Dr. Deepak Greenfield Neutrophils/100 WBC (Bld) 55.8 % Normal 43.0-75.0 [facility] Comment on above: Performed By: #### B MP #### [facility] [address] [place] [address] Dr. Deepak Greenfield Platelet mean volume (Bld) [Entitic vol] 9.7 fL Normal 9.5-13.5 [facility] Comment on above: Performed By: #### B MP #### [facility] [address] [place] [address] Dr. Deepak Greenfield PLT 296 103/ul Normal 150-450 [facility] Comment on above: Performed By: #### B MP #### [facility] [address] [place] [address] Dr. Deepak Greenfield RBC 3.37 106/ul Critically low 4.70-6.10 [facility] Comment on above: Performed By: #### B MP #### [facility] [address] [place] [address] Dr. Deepak Greenfield WBC 7.0 103/ul Normal 4.0-11.0 [facility] Comment on above: Performed By: #### B MP #### [facility] [address] [place] [address] Dr. Deepak Greenfield PROF CHEM 8 (BAS METB)on Anion gap [Moles/Vol] 14.9 mmol/L Normal [facility] Comment on above: Performed By: #### C BC #### [facility] [address] [place] [address] Dr. Deepak Greenfield Calcium [Mass/Vol] 8.8 mg/dL Normal 8.5-10.1 [facility] Comment on above: Performed By: #### C BC #### [facility] [address] [place] [address] Dr. Deepak Greenfield Chloride [Moles/Vol] 105 mmol/L Normal 98-107 [facility] Comment on above: Performed By: #### C BC #### [facility] [address] [address] [address] Deepak Greenfield CO2 [Moles/Vol] 26.4 mmol/L Normal 21.0-32.0 [facility] Comment on above: Performed By: #### C BC #### [facility] [address] [address] [address] Deepak Greenfield Creatinine [Mass/Vol] 0.70 mg/dL Normal 0.70-1.30 [facility] Comment on above: Performed By: #### C BC #### [facility] [address] [place] [address] Dr. Deepak Greenfield EGFR-AF [place] >60 Normal >=60 [facility] Comment on above: Performed By: #### C BC #### [facility] [address] [place] [address] Dr. Deepak Greenfield EGFR-NON AF [place] >60 Normal >=60 [facility] Comment on above: Performed By: #### C BC #### [facility] [address] [place] [address] Dr. Deepak Greenfield Glucose [Mass/Vol] 129 mg/dL Critically high 74-106 [facility] Comment on above: Performed By: #### C BC #### [facility] [address] [place] [address] Dr. Deepak Greenfield Potassium [Moles/Vol] 4.3 mmol/L Normal 3.5-5.1 [facility] Comment on above: Performed By: #### C BC #### [facility] [address] [address] [address] Deepak Greenfield Sodium [Moles/Vol] 142 mmol/L Normal 136-145 [facility] Comment on above: Performed By: #### C BC #### [facility] [address] [place] [address] Dr. Deepak Greenfield Urea nitrogen [Mass/Vol] 6.0 mg/dL Critically low 7.0-18.0 [facility] Comment on above: Performed By: #### C BC #### [facility] [address] [place] [address] Dr. Deepak Greenfield Urea nitrogen/Creatinine [Mass ratio] 8.6 mg/mg Normal [facility] Comment on above: Performed By: #### C BC #### [facility] [address] [place] [address] Dr. Deepak Greenfield AMMONIAon 07-30-2022 Ammonia (P) [Moles/Vol] 64 umol/L Critically high 11-32 [facility] Comment on above: Performed By: #### C BC #### [facility] [address] [place] [address] Dr. Deepak Greenfield CBC AUTO DIFFon 07-30-2022 BASO # 0.0 103/ul Normal 0.0-0.1 [facility] Comment on above: Performed By: #### I NFLUAB #### [facility] [address] [place] [address] Dr. Deepak Greenfield Basophils/100 WBC (Bld) 0.0 % Critically low 0.2-2.0 [facility] Comment on above: Performed By: #### I NFLUAB #### [facility] [address] [place] [address] Dr. Deepak Greenfield EO # 0.0 103/ul Normal 0.0-0.7 [facility] Comment on above: Performed By: #### I NFLUAB #### [facility] [address] [place] [address] Dr. Deepak Greenfield Eosinophils/100 WBC (Bld) 0.0 % Critically low 0.9-7.0 [facility] Comment on above: Performed By: #### I NFLUAB #### [facility] [address] [place] [address] Dr. Deepak Greenfield Erythrocyte distribution width (RBC) [Ratio] 13.1 % Normal 11.0-15.0 [facility] Comment on above: Performed By: #### I NFLUAB #### [facility] [address] [place] [address] Dr. Deepak Greenfield Hematocrit (Bld) [Volume fraction] 31.4 % Critically low 42.0-54.0 [facility] Comment on above: Performed By: #### I NFLUAB #### [facility] [address] [place] [address] Dr. Deepak Greenfield Hemoglobin (Bld) [Mass/Vol] 10.5 g/dL Critically low 14.0-18.0 [facility] Comment on above: Performed By: #### I NFLUAB #### [facility] [address] [place] [address] Dr. Deepak Greenfield IG # 0.01 10e3/ul Normal 0.00-0.03 [facility] Comment on above: Performed By: #### I NFLUAB #### [facility] [address] [place] [address] Dr. Deepak Greenfield IG % 0.2 % Normal 0.0-0.5 [facility] Comment on above: Performed By: #### I NFLUAB #### [facility] [address] [place] [address] Dr. Deepak Greenfield LYMPH # 1.5 103/ul Normal 1.2-3.8 [facility] Comment on above: Performed By: #### I NFLUAB #### [facility] [address] [place] [address] Dr. Deepak Greenfield Lymphocytes/100 WBC (Bld) 27.5 % Normal 20.5-60.0 [facility] Comment on above: Performed By: #### I NFLUAB #### [facility] [address] [place] [address] Dr. Deepak Greenfield MANUAL DIFF REQ NO Normal [facility] Comment on above: Performed By: #### I NFLUAB #### [facility] [address] [place] [address] Dr. Deepak Greenfield MCH (RBC) [Entitic mass] 32.4 pg Normal 25.9-34.0 [facility] Comment on above: Performed By: #### I NFLUAB #### [facility] [address] [place] [address] Dr. Deepak Greenfield MCHC (RBC) [Mass/Vol] 33.4 g/dL Normal 29.9-35.2 [facility] Comment on above: Performed By: #### I NFLUAB #### [facility] [address] [address] [address] Deepak Greenfield MCV (RBC) [Entitic vol] 96.9 fL Critically high 80.0-94.0 [facility] Comment on above: Performed By: #### I NFLUAB #### [facility] [address] [address] [address] Deepak Greenfield MONO # 0.2 103/ul Critically low 0.3-0.8 [facility] Comment on above: Performed By: #### I NFLUAB #### [facility] [address] [place] [address] Dr. Deepak Greenfield Monocytes/100 WBC (Bld) 2.9 % Normal 1.7-12.0 [facility] Comment on above: Performed By: #### I NFLUAB #### [facility] [address] [place] [address] Dr. Deepak Greenfield NEUT # 3.8 103/ul Normal 1.4-6.5 [facility] Comment on above: Performed By: #### I NFLUAB #### [facility] [address] [place] [address] Dr. Deepak Greenfield Neutrophils/100 WBC (Bld) 69.4 % Normal 43.0-75.0 [facility] Comment on above: Performed By: #### I NFLUAB #### [facility] [address] [address] [address] Deepak Greenfield Platelet mean volume (Bld) [Entitic vol] 9.4 fL Critically low 9.5-13.5 [facility] Comment on above: Performed By: #### I NFLUAB #### [facility] [address] [address] [address] Deepak Greenfield PLT 256 103/ul Normal 150-450 [facility] Comment on above: Performed By: #### I NFLUAB #### [facility] [address] [place], [place] [address] [address]. Deepak Greenfield RBC 3.24 106/ul Critically low 4.70-6.10 [facility] Comment on above: Performed By: #### I NFLUAB #### [facility] [address] [place], [place] [address] Dr. Deepak Greenfield WBC 5.5 103/ul Normal 4.0-11.0 [facility] Comment on above: Performed By: #### I NFLUAB #### [facility] [address] [place], [place] [address] Dr. Deepak Greenfield Coding Summary.on 07-30-2022 Coding Summary. CD:[id number] W w+PGhlYWQ+[id number] kpCCsxV1mZ1DUDObTPttz LPJXEWoAXqEzbeVnMQ5tc XNjZXJu IC8+YA6mXJAbKmsibYVhg 5A9nVP3M82rbu3zZYekhR H8IRFmIrMbdealm2gkaGo 6IDcuNmluOyBt BDTycC27GGB3oS64Vb90y NUetBQxk1euwIr4TdYiHX TxGFZ1rRgrVFykz3JaZNU kA41ilADcd9W7 OYCvyUfeaNFsBfXpmWH2w C4aJBjrateis1ifqqkqCq n7mt68uZXfg5O2pDL0A5H sefG6HQInaPRx YcxlmHEKfY8zcabyv1wls yhpLvBgGTKjHEa9XJr7JG ZaqTwtPaOcMA71ZEC4PKK ukdWvM7MfBJJm lTqjIyI9p5F7Wi3TJ8MHZ kdqQ0BIMTOZCNegaUN+PC 18er17D6QuErxhAwk4SSO rEXD5oAL0nE9e IUZhKVnjt5H5cYO4R7Yqn tPcfx9ro6rtQPHaVQfzT2 3kgPRnp7M3NODnoPT2GWM czAfhMdAafG37 Oyc+ICHgiTtht2DqWtflf 2gxy3lrnRe9EypkVGJfau GciAcxQPD4c5BkQk9aQYN biWM2bAZ3kO8p AgLqNeJ2LSyrB322UvKks YGzHqhaF68zS7BpfMH+PH QiGdw5JFJchYgdXO5pY7E hZGRpbmctbGVm cWvjLS5gLRCvwocrITCxx V3tSUMvE7u2EyZbHsP3VN tnT1McDTYdirniSy00qA6 eWfBkHpZ6WSyg V7LnkeB4UJLffBAwKUiaZ TM0P61fa9U9XZHlFHFtOE U9cCE8tL1umNcbdsbotNF mdDsgdmVydGlj GAisLEywZ080RLQlkTkzA kNvZGluZyBEYXRlOiAgMD QvMTMvMjAyMzwvdGQ+PHR fLPK0mUzeOGUo gVErAFlyOj9dsUrkbTwvE S7fEJZofhvxRSMqtV7zIU MqzAGceQgoWZ5cSYCvvnn ko440LjYtLGT0 KSVbgLXvQ1IoeX1nItBjV ZSuTQTcV6FoeZRiPPtiA6 72KHahJaX1XAMqkjRqR8B sLWFsaWduOiB0 g6H9Zm7Jy2UsljbnR7Rte PWvVeLqIcuqPBt1S2IhKe wvdHI+KS92LDCrQS09LFt 2HLV2hRtfWWlk CDHpO9GplN5wGfZcZXWaN GRkOyc+PHRhYmxlIHdpZH RoPScxMDAlJyBzdHlsZT0 mOa0cEXMjAWGl aLqadISwToNte3oqHMKcP TuqCM8klBwqB1OtsVI7TY Xyr0j7Ey87Y73aL6FkhOV +QMLzsTB0kBF5 bF3lTmXnNcT2YUvyI513N gIvpMWbWzvfm3ewx5fckX k4HgK4AVLkudDfiBchGWT 1y8GgWd48J43r IHdpZHRoPSIxNSUiIHZhb Pkrxu7bkU5eKd0+PGNvbC G0gHY9wH0bTfOeApG6UVr gO933QmIcyRYc Zoclz6vlf4nicQj8VkIzS OBhopNduYdzDBD5t1MwYw 58W4CjnHzbl2XqOxy2zy8 2uUBea6B5kWA3 L3AdXXMnprphwUDuaKboM T2pVQAnspubWXExeG1wOX ChX1b6RhCuBgQ0TBbfB8V fooT5GKMuqKAf PXCkxJOPeH1sottsh7oya frsDwQyMZQzTAp4YTw5BI MdlYmxDsAxDNS6NfE6CEV 2hDFdhS1dzCoi secfoA0eFko+TCX4mTBat KDZCD2iDqvnrUK+PHRkIH F5mVgjTBaaMVDscX5fUSJ sX8g5ZeOmDgF5 PRxfN5WqmaN5FODnrHImQ GVpeKUEdO7zajvuz4zsxx cjVkFgTCHeZGx9OCl8BSD saWduOiBsZWZ0 OoK7IEW1vNMhyL7qdHkkh ndepC4eKpc+QmlydGggRG E0TTa6S9BxIlw6NNDzvQv vBM6oeXJaEMch Yc5kpHinsGroDQ7rHVEju atle212UdBoe8nwBHPiqJ EvYEnnBEY5X61ll8Q3WFI oUTLtDGJ1wHM3 uI2yiQbbasgqaYRioFakp cYgrWmuWLmeERyoN739KC AqqSefZhQoFZw8K9XgUto 2FWVggYijCM7y iMZvFBdsTj7kzWypnDgmJ C5xCCSpcfldf826CqFbs7 rhYRIynSVaQWizHEM7P49 gy8K8AHBbEAEq THZ0uCG3iL6ssPhulbbcd GVmdDsgdmVydGljYWwtYW hbP277QBJblCvtPvRskGz 1F7FxQtq0ZFQq tMrqNQ7bcESqDFamHy3st UvpuRxoWB0rLVDnbnhoj4 69LtBhi3gbHDRblRQwUOd rXNZ2M07wt2Y2 GLJbQNAwSHK0fXL1aV7gv GlnbjogbGVmdDsgdmVydG cyTZhnKCyzP632GFQxeLl nPlBhdGllbnQg ZUlfISz9S8KyTdxczMA+P X09PFYlTH12dNBrbMRei5 hdyHe7GwRlZZOfPHQ4gXa vWYkjm2SiCWJj H74zpIRad4V8XLPtqPucm CUyPzEaoNF5xV9sGHeeva uhj2wreslsCbbkb8innw7 2dC70J10sJOur ZHRoPSIzMCUiIHZhbGlnb k8evV8iVa6+AIMfnBG2yT R9tW7iGZYeNoJ2ZIgrF07 9InRvcCIvPjxj z1lxf4dhoQe5HqF7DYZxj eBszHohWEY1z3TrNn69W2 9sIHdpZHRoPSIyMCUiIHZ xmEzvut1yoL3l Ii8+OTBbeJL4pCT5lQ7hV dFsXxK3NNoiC812SiQfqZ QbKpadH41iJ1GfdAZ+PHR uZnu9OOIylYkx QR4msWUcXNljIz4zWFH9D uItZtKoZVfnQ9FwHXMzus qfgwgyeDY6ROEuSSEzqA6 1Uk0kqZrjSTBt sRRZkD4uwxhrh7nrcjpwU yQaPJZhTNo9MMc7BXWdmZ hsEyGlQFP1CrP6QLS7sFF rbV4yfWjdvjaj zI1vE0CqZFWtjfclNk37m H9zBwGpElQ7TUwjBmy+U0 1OSMEFOVMXJYPAJfWVYB3 0MU23gVXsk4E7 pBJ3O5SeKEKwhclymexvk LD3HDEfMXJnhH90lHWgQJ dzDz7pw9V3x547ATKyNMD hsF14Bz9znIdk YSElrKMXxU4qactoz5kzc inmIcSpALOzNGx1KDe5NQ NxzVevTmKoVPX7OtH1FHO 3mLRqmA6mkTfe myzsqJ4uKmo+MTAvMTYvM Sw6CJoerQR+LUYxWXM4jS hsFOvzPGRmhV0tIYKhR7k 0GyEoSfS1OHfj Q3IwXUIywbnvFq12yG5dX mOuJtW5QFqzG1RywqZ9MK XdxAWlYLksHQB2I58oq0W 1STBlVDKjAYI5 jEK4jG0wjPorlisgwPLpt DsgdmVydGljYWwtYWxpZ2 46IHRvcDsnPjQyIFllYXJ uMP35CA61mRFh p9J6eQQ0W2StNTDcugosk jxxfHD0WKUwXSZkgW51gJ UoRQovPa1sv4V8m824VPA hDPIlaV40Vd6g wOqlMHZkcFEDkZ4dpvver 9yulxitMyYgXRTrRBg8JO y7AOKuzFfmDeDgBLI2AeM 8QDK9xJJkzE9o vCnchgdrtJ8tJxm+TWFsZ TwvdGQ+PVWhHCY5rMmxPP psQBBfpC3aSFMfI2n1QcZ dJpK3ZIlqA6Bt KLJkicrrVx84mF0lCfDsG cG5CDdlQ9KrydD7MOFpnM PgEVwuLLB1G05kb3N4PAG uPJWxNIV7lIB0 cD5szKoizdnpfIVvdAhgk zYsoEgwHEdhFEfqQ022PF AgeEabPu39qURkmBzvfsY 7M9RgIuoqyEW+ OR15UEPjKB11vJVlgMKip 7ggjOi9JyCfBWPbXRI2fY ztHGxud4WzULSlF76dzRV el8E4NGRgzQyx lYYfFjMobWX0iY8gHNmtn nxvv4bebzrfZmnqe2mlha 30zE45Q14hCQelMWSwKCO zMCUiIHZhbGln vk3ebQ0dZy7+IMPbdOI3o KZ8oY8aCfUgBvN1VWywJ1 40LwBkxZYgWdmzu7uqb2w hgYw6PoWeKJBs jlYdvPevCVB1p5RkNu93I 29sIHdpZHRoPSIyMCUiIH KauEfzkd6znJ2pDj7+PC9 dx1zooy66bI08 dHI+ZHJeTRF7oZvxVFokI CZkuK2bNVboMhW8QKLfFy GjmS89eJXzDGksKf9ozDy voRibXH0pUIEa fdgow822OfUhy7ffDMNiq FJtXFouSEU3W01pc6G9EI FiVZQsJPC0lQV6vM4epNy nbjogbGVmdDsg ouLlzExhNUgvBDvsA181R TOrpQyaNkDykYIvX0azux QOQV0wOnuczOZ+PHRkIHN 0eWxlPSdwYWRk gW7tIYIlG4z1QtMqSqR0H MexD7RcssD1ZATccVZcOR RjhABQcJ2wstkgf9gyypb gIzAwMDAwMDt0 LCh6VADjlUumEvCbIOP4B pQ3EIA2rDKkiM3lxJiovy cadU9mGwy+RklOOjwvdGQ +EINmIJH5yZjg SLnuGTIqwI1hUUPjP6i5C mHmZrY8YBrxI7ZfbsG8MR KphTUlPVWzlSXZwI5rwno bl2pmgghgWrUz XDClHWu1MAp9LFKzuJeyK uKuWOH3YzD8KXK9nXXbdH 2hrQvnepbvkS7kThd+TVJ OOjwvdGQ+PHRk CYP0jGwgQNyrEFHsxF9oY WRhQ8j5DaCzDjE9NSiiI5 OxtvH9NNLirMYzAHZktWO KuT9vclcwj8ha rmsfBxAmTHDvAIg5DNb2R YEqgWibXpXlAKY4UjN1FE A7pGXpwQ0msUdwzjcniG5 wOyc+GFA9AUS3 QL13XA28X5ZtMunicIIbi +PHRhYmxlIHdpZHRoPS dwSQYvBuZveLnfVO5eSz2 yZGVyLWNvbGxh cHNlOiBj (more content not included)... Normal [facility] PROF CHEM 8 (BAS METB)on Anion gap [Moles/Vol] 8.3 mmol/L Normal [facility] Comment on above: Performed By: #### I NFLUAB #### [facility] [address] [place] [address] Dr. Deepak Greenfield Calcium [Mass/Vol] 8.5 mg/dL Normal 8.5-10.[address] [facility] Comment on above: Performed By: #### I NFLUAB #### [facility] [address] [address] [address] Deepak Greenfield Chloride [Moles/Vol] 104 mmol/L Normal 98-107 [facility] Comment on above: Performed By: #### I NFLUAB #### [facility] [address] [address] [address] Deepak Greenfield CO2 [Moles/Vol] 30.0 mmol/L Normal 21.0-32.0 [facility] Comment on above: Performed By: #### I NFLUAB #### [facility] [address] [address] [address] Deepak Greenfield Creatinine [Mass/Vol] 0.46 mg/dL Critically low 0.70-1.30 [facility] Comment on above: Performed By: #### I NFLUAB #### [facility] [address] [address] [address] Deepak Greenfield EGFR-AF [place] >60 Normal >=60 [facility] Comment on above: Performed By: #### I NFLUAB #### [facility] [address] [place] [address] Dr. Deepak Greenfield EGFR-NON AF [place] >60 Normal >=60 [facility] Comment on above: Performed By: #### I NFLUAB #### [facility] [address] [place] [address] Dr. Deepak Greenfield Glucose [Mass/Vol] 152 mg/dL Critically high 74-106 [facility] Comment on above: Performed By: #### I NFLUAB #### [facility] [address] [place] [address] Dr. Deepak Greenfield Potassium [Moles/Vol] 4.3 mmol/L Normal 3.5-5.1 [facility] Comment on above: Performed By: #### I NFLUAB #### [facility] [address] [place] [address] Dr. Deepak Greenfield Sodium [Moles/Vol] 138 mmol/L Normal 136-145 [facility] Comment on above: Performed By: #### I NFLUAB #### [facility] [address] [place] [address] Dr. Deepak Greenfield Urea nitrogen [Mass/Vol] 9.0 mg/dL Normal 7.0-18.0 [facility] Comment on above: Performed By: #### I NFLUAB #### [facility] [address] [address] [address] Deepak Greenfield Urea nitrogen/Creatinine [Mass ratio] 19.6 mg/mg Normal [facility] Comment on above: Performed By: #### I NFLUAB #### [facility] [address] [place] [address] Dr. Deepak Greenfield AMMONIAon 07-29-2022 Ammonia (P) [Moles/Vol] 69 umol/L Critically high 11-32 [facility] Comment on above: Performed By: #### A MM #### [facility] [address] [place] [address] Dr. Deepak Greenfield CBC AUTO DIFFon 07-29-2022 BASO # 0.0 103/ul Normal 0.0-0.1 [facility] Comment on above: Performed By: #### M G, CMP #### [facility] [address] [place] [address] Dr. Deepak Greenfield Basophils/100 WBC (Bld) 0.2 % Normal 0.2-2.0 [facility] Comment on above: Performed By: #### M G, CMP #### [facility] [address] [place] [address] Dr. Deepak Greenfield EO # 0.0 103/ul Normal 0.0-0.7 [facility] Comment on above: Performed By: #### M G, CMP #### [facility] [address] [place] [address] Dr. Deepak Greenfield Eosinophils/100 WBC (Bld) 0.0 % Critically low 0.9-7.0 [facility] Comment on above: Performed By: #### M G, CMP #### [facility] [address] [place] [address] Dr. Deepak Greenfield Erythrocyte distribution width (RBC) [Ratio] 13.2 % Normal 11.0-15.0 [facility] Comment on above: Performed By: #### M G, CMP #### [facility] [address] [place] [address] Dr. Deepak Greenfield Hematocrit (Bld) [Volume fraction] 33.1 % Critically low 42.0-54.0 [facility] Comment on above: Performed By: #### M G, CMP #### [facility] [address] [place] [address] Dr. Deepak Greenfield Hemoglobin (Bld) [Mass/Vol] 10.8 g/dL Critically low 14.0-18.0 [facility] Comment on above: Performed By: #### M G, CMP #### [facility] [address] [address] [address] Deepak Greenfield IG # 0.04 10e3/ul Critically high 0.00-0.03 [facility] Comment on above: Performed By: #### M G, CMP #### [facility] [address] [address] [address] Deepak Greenfield IG % 0.5 % Normal 0.0-0.5 [facility] Comment on above: Performed By: #### M G, CMP #### [facility] [address] [address] [address] Deepak Greenfield LYMPH # 1.1 103/ul Critically low 1.2-3.8 [facility] Comment on above: Performed By: #### M G, CMP #### [facility] [address] [address] [address] Deepak Greenfield Lymphocytes/100 WBC (Bld) 13.6 % Critically low 20.5-60.0 [facility] Comment on above: Performed By: #### M G, CMP #### [facility] [address] [address] [address] Deepak Greenfield MANUAL DIFF REQ NO Normal [facility] Comment on above: Performed By: #### M G, CMP #### [facility] [address] [address] [address] Deepak Greenfield MCH (RBC) [Entitic mass] 32.2 pg Normal 25.9-34.0 [facility] Comment on above: Performed By: #### M G, CMP #### [facility] [address] [address] [address] Deepak Greenfield MCHC (RBC) [Mass/Vol] 32.6 g/dL Normal 29.9-35.2 [facility] Comment on above: Performed By: #### M G, CMP #### [facility] [address] [address] [address] Deepak Greenfield MCV (RBC) [Entitic vol] 98.8 fL Critically high 80.0-94.0 [facility] Comment on above: Performed By: #### M G, CMP #### [facility] [address] [place] [address] Dr. Deepak Greenfield MONO # 0.3 103/ul Normal 0.3-0.8 [facility] Comment on above: Performed By: #### M G, CMP #### [facility] [address] [place] [address] Dr. Deepak Greenfield Monocytes/100 WBC (Bld) 3.8 % Normal 1.7-12.0 [facility] Comment on above: Performed By: #### M G, CMP #### [facility] [address] [place] [address] Dr. Deepak Greenfield NEUT # 6.7 103/ul Critically high 1.4-6.5 [facility] Comment on above: Performed By: #### M G, CMP #### [facility] [address] [place] [address] Dr. Deepak Greenfield Neutrophils/100 WBC (Bld) 81.9 % Critically high 43.0-75.0 [facility] Comment on above: Performed By: #### M G, CMP #### [facility] [address] [place] [address] Dr. Deepak Greenfield Platelet mean volume (Bld) [Entitic vol] 9.6 fL Normal 9.5-13.5 [facility] Comment on above: Performed By: #### M G, CMP #### [facility] [address] [place] [address] Dr. Deepak Greenfield PLT 257 103/ul Normal 150-450 [facility] Comment on above: Performed By: #### M G, CMP #### [facility] [address] [place] [address] Dr. Deepak Greenfield RBC 3.35 106/ul Critically low 4.70-6.10 [facility] Comment on above: Performed By: #### M G, CMP #### [facility] [address] [place] [address] Dr. Deepak Greenfield WBC 8.2 103/ul Normal 4.0-11.0 [facility] Comment on above: Performed By: #### M G, CMP #### [facility] [address] [place] [address] Dr. Deepak Greenfield LACTATE/LACTIC ACIDon 2022 Lactate [Moles/Vol] 1.1 mmol/L Normal 0.4-2.0 [facility] Comment on above: Performed By: #### I NFLUAB #### [facility] [address] [place] [address] Dr. Deepak Greenfield PROF CHEM 8 (BAS METB)on Anion gap [Moles/Vol] 9.4 mmol/L Normal [facility] Comment on above: Performed By: #### I NFLUAB #### [facility] [address] [place] [address] Dr. Deepak Greenfield Calcium [Mass/Vol] 8.0 mg/dL Critically low 8.5-10.1 [facility] Comment on above: Performed By: #### I NFLUAB #### [facility] [address] [place] [address] Dr. Deepak Greenfield Chloride [Moles/Vol] 105 mmol/L Normal 98-107 [facility] Comment on above: Performed By: #### I NFLUAB #### [facility] [address] [place] [address] Dr. Deepak Greenfield CO2 [Moles/Vol] 30.7 mmol/L Normal 21.0-32.0 [facility] Comment on above: Performed By: #### I NFLUAB #### [facility] [address] [place] [address] Dr. Deepak Greenfield Creatinine [Mass/Vol] 0.66 mg/dL Critically low 0.70-1.30 [facility] Comment on above: Performed By: #### I NFLUAB #### [facility] [address] [place] [address] Dr. Deepak Greenfield EGFR-AF [place] >60 Normal >=60 [facility] Comment on above: Performed By: #### I NFLUAB #### [facility] [address] [address] [address] Deepak Greenfield EGFR-NON AF [place] >60 Normal >=60 [facility] Comment on above: Performed By: #### I NFLUAB #### [facility] [address] [address] [address] Deepak Greenfield Glucose [Mass/Vol] 177 mg/dL Critically high 74-106 [facility] Comment on above: Performed By: #### I NFLUAB #### [facility] [address] [address] [address] Deepak Greenfield Potassium [Moles/Vol] 4.1 mmol/L Normal 3.5-5.1 [facility] Comment on above: Performed By: #### I NFLUAB #### [facility] [address] [place] [address] Dr. Deepak Greenfield Sodium [Moles/Vol] 141 mmol/L Normal 136-145 [facility] Comment on above: Performed By: #### I NFLUAB #### [facility] [address] [place] [address] Dr. Deepak Greenfield Urea nitrogen [Mass/Vol] 9.0 mg/dL Normal 7.0-18.0 [facility] Comment on above: Performed By: #### I NFLUAB #### [facility] [address] [place] [address] Dr. Deepak Greenfield Urea nitrogen/Creatinine [Mass ratio] 13.6 mg/mg Normal [facility] Comment on above: Performed By: #### I NFLUAB #### [facility] [address] [place] [address] Dr. Deepak Greenfield AMMONIAon 07-28-2022 Ammonia (P) [Moles/Vol] 68 umol/L Critically high 11-32 [facility] Comment on above: Performed By: #### B MP #### [facility] [address] [place] [address] Dr. Deepak Greenfield CBC AUTO DIFFon 07-28-2022 BASO # 0.0 103/ul Normal 0.0-0.1 [facility] Comment on above: Performed By: #### C BC #### [facility] [address] [place] [address] Dr. Deepak Greenfield Basophils/100 WBC (Bld) 0.3 % Normal 0.2-2.0 [facility] Comment on above: Performed By: #### C BC #### [facility] [address] [place] [address] Dr. Deepak Greenfield EO # 0.0 103/ul Normal 0.0-0.7 [facility] Comment on above: Performed By: #### C BC #### [facility] [address] [place] [address] Dr. Deepak Greenfield Eosinophils/100 WBC (Bld) 0.0 % Critically low 0.9-7.0 [facility] Comment on above: Performed By: #### C BC #### [facility] [address] [place] [address] Dr. Deepak Greenfield Erythrocyte distribution width (RBC) [Ratio] 13.3 % Normal 11.0-15.0 [facility] Comment on above: Performed By: #### C BC #### [facility] [address] [place] [address] Dr. Deepak Greenfield Hematocrit (Bld) [Volume fraction] 37.0 % Critically low 42.0-54.0 [facility] Comment on above: Performed By: #### C BC #### [facility] [address] [place] [address] Dr. Deepak Greenfield Hemoglobin (Bld) [Mass/Vol] 12.3 g/dL Critically low 14.0-18.0 [facility] Comment on above: Performed By: #### C BC #### [facility] [address] [place] [address] Dr. Deepak Greenfield IG # 0.06 10e3/ul Critically high 0.00-0.03 [facility] Comment on above: Performed By: #### C BC #### [facility] [address] [place] [address] Dr. Deepak Greenfield IG % 0.5 % Normal 0.0-0.5 [facility] Comment on above: Performed By: #### C BC #### [facility] [address] [address] [address] Deepak Greenfield LYMPH # 2.9 103/ul Normal 1.2-3.8 [facility] Comment on above: Performed By: #### C BC #### [facility] [address] [address] [address] Deepak Greenfield Lymphocytes/100 WBC (Bld) 23.5 % Normal 20.5-60.0 [facility] Comment on above: Performed By: #### C BC #### [facility] [address] [place] [address] Dr. Deepak Greenfield MANUAL DIFF REQ NO Normal [facility] Comment on above: Performed By: #### C BC #### [facility] [address] [place] [address] Dr. Deepak Greenfield MCH (RBC) [Entitic mass] 32.4 pg Normal 25.9-34.0 [facility] Comment on above: Performed By: #### C BC #### [facility] [address] [place] [address] Dr. Deepak Greenfield MCHC (RBC) [Mass/Vol] 33.2 g/dL Normal 29.9-35.2 [facility] Comment on above: Performed By: #### C BC #### [facility] [address] [place] [address] Dr. Deepak Greenfield MCV (RBC) [Entitic vol] 97.4 fL Critically high 80.0-94.0 [facility] Comment on above: Performed By: #### C BC #### [facility] [address] [place] [address] Dr. Deepak Greenfield MONO # 1.0 103/ul Critically high 0.3-0.8 [facility] Comment on above: Performed By: #### C BC #### [facility] [address] [place] [address] Dr. Deepak [place] Monocytes/100 WBC (Bld) 8.0 % Normal 1.7-12.0 [facility] Comment on above: Performed By: #### C BC #### [facility] [address] [place] [address] Dr. Deepak [place] NEUT # 8.3 103/ul Critically high 1.4-6.5 [facility] Comment on above: Performed By: #### C BC #### [facility] [address] [place] [address] Dr. Deepak [place] Neutrophils/100 WBC (Bld) 67.7 % Normal 43.0-75.0 [facility] Comment on above: Performed By: #### C BC #### [facility] [address] [place] [address] Dr. Deepak [place] Platelet mean volume (Bld) [Entitic vol] 9.7 fL Normal 9.5-13.5 [facility] Comment on above: Performed By: #### C BC #### [facility] [address] [place] [address] Dr. Deepak [place] PLT 325 103/ul Normal 150-450 [facility] Comment on above: Performed By: #### C BC #### [facility] [address] [place] [address] Dr. Deepak [place] RBC 3.80 106/ul Critically low 4.70-6.10 [facility] Comment on above: Performed By: #### C BC #### [facility] [address] [place] [address] Dr. Deepak [place] WBC 12.2 103/ul Critically high 4.0-11.0 [facility] Comment on above: Performed By: #### C BC #### [facility] [address] [place] [address] Dr. Deepak [place] CULTURE BLOODon 07-28-2022 Microscopic examination of blood, culture Culture Observations: NO GROWTH AT 5 DAYS. Normal [facility] Comment on above: Performed By: #### B [id number] #### [facility] [address] [place] [address] Dr. Deepak Greenfield Microscopic examination of blood, culture Culture Observations: NO GROWTH AT 5 DAYS. Normal [facility] Comment on above: Performed By: #### C BC #### [facility] [address] [place] [address] Dr. Deepak [place] LACTATE/LACTIC ACIDon 2022 Lactate [Moles/Vol] 2.5 mmol/L Critically high 0.4-2.0 [facility] Comment on above: Performed By: #### C VDTB #### [facility] [address] [place] [address] Dr. Deepak Greenfield PROF 14(COMP METB)on 023 Albumin [Mass/Vol] 3.1 g/dL Critically low 3.4-5.0 Th e [facility] Comment on above: Performed By: #### C BC #### [facility] [address] [place] [address] Dr. Deepak [place]field Albumin/Globulin [Mass ratio] 0.7 {ratio} Normal [facility] Comment on above: Performed By: #### C BC #### [facility] [address] [place] [address] Dr. Deepak [place]field ALP [Catalytic activity/Vol] 51 U/L Normal 46-116 [facility] Comment on above: Performed By: #### C BC #### [facility] [address] [place] [address] Dr. Deepak Greenfield ALT [Catalytic activity/Vol] 106 U/L Critically high 16-63 [facility] Comment on above: Performed By: #### C BC #### [facility] [address] [place] [address] Dr. Deepak Greenfield Anion gap [Moles/Vol] 14.2 mmol/L Normal [facility] Comment on above: Performed By: #### C BC #### [facility] [address] [place] [address] Dr. Deepak Greenfield AST [Catalytic activity/Vol] 81 U/L Critically high 15-37 [facility] Comment on above: Performed By: #### C BC #### [facility] [address] [place] [address] Dr. Deepak [place]field Bilirubin [Mass/Vol] 0.4 mg/dL Normal 0.2-1.0 [facility] Comment on above: Performed By: #### C BC #### [facility] [address] [address] [address] Deepak [place]field Calcium [Mass/Vol] 8.9 mg/dL Normal 8.5-10.1 [facility] Comment on above: Performed By: #### C BC #### [facility] [address] [address] [address] Deepak [place] Chloride [Moles/Vol] 105 mmol/L Normal 98-107 [facility] Comment on above: Performed By: #### C BC #### [facility] [address] [address] [address] Deepak [place]field CO2 [Moles/Vol] 27.9 mmol/L Normal 21.0-32.0 [facility] Comment on above: Performed By: #### C BC #### [facility] [address] [place] [address] Dr. Deepak Greenfield Creatinine [Mass/Vol] 0.77 mg/dL Normal 0.70-1.30 [facility] Comment on above: Performed By: #### C BC #### [facility] [address] [place] [address] Dr. Deepak [place] EGFR-AF [place] >60 Normal >=60 [facility] Comment on above: Performed By: #### C BC #### [facility] [address] [place] [address] Dr. Deepak [place]field EGFR-NON AF [place] >60 Normal >=60 [facility] Comment on above: Performed By: #### C BC #### [facility] [address] [place] [address] Dr. Deepak [place]field Globulin (S) [Mass/Vol] 4.3 g/dL Normal [facility] Comment on above: Performed By: #### C BC #### [facility] [address] [place] [address] Dr. Deepak Greenfield Glucose [Mass/Vol] 162 mg/dL Critically high 74-106 [facility] Comment on above: Performed By: #### C BC #### [facility] [address] [place] [address] Dr. Deepak Greenfield Potassium [Moles/Vol] 4.1 mmol/L Normal 3.5-5.1 [facility] Comment on above: Performed By: #### C BC #### [facility] [address] [place] [address] Dr. Deepak Greenfield Protein [Mass/Vol] 7.4 g/dL Normal 6.4-8.[address] [facility] Comment on above: Performed By: #### C BC #### [facility] [address] [address] [address] Deepak [place]field Sodium [Moles/Vol] 143 mmol/L Normal 136-[address] [facility] Comment on above: Performed By: #### C BC #### [facility] [address] [place] [address] Dr. Deepak Greenfield Urea nitrogen [Mass/Vol] 12.0 mg/dL Normal 7.0-18.0 [facility] Comment on above: Performed By: #### C BC #### [facility] [address] [place] [address] Dr. Deepak Greenfield Urea nitrogen/Creatinine [Mass ratio] 15.6 mg/mg Normal [facility] Comment on above: Performed By: #### C BC #### [facility] [address] [place] [address] Dr. Deepak Greenfield RESPIRATORY PANEL PLUSon Adenovirus Not detected Normal NOT DETECTED The [facility] Comment on above: Performed By: #### B MP #### [facility] [address] [place] [address] Dr. Deepak Murphy. Parapertusis Not detected Normal NOT DETECTED The [facility] Comment on above: Performed By: #### B MP #### [facility] [address] [place] [address] Dr. Deepak Murphy. Pertussis Not detected Normal NOT DETECTED [facility] Comment on above: Performed By: #### B MP #### [facility] [address] [place] [address] Dr. Deepak [place]field Chlamydia Pneumoniae Not detected Normal NOT DETECTED [facility] Comment on above: Performed By: #### B MP #### [facility] [address] [place] [address] Dr. Deepak Greenfield Coronavirus 229E Not detected Normal NOT DETECTED [facility] Comment on above: Performed By: #### B MP #### [facility] [address] [address] [address] Deepak Greenfield Coronavirus HKU1 Not detected Normal NOT DETECTED [facility] Comment on above: Performed By: #### B MP #### [facility] [address] [address] [address] Deepak [place] Coronavirus NL63 Not detected Normal NOT DETECTED [facility] Comment on above: Performed By: #### B MP #### [facility] [address] [place] [address] Dr. Deepak Greenfield Coronavirus OC43 Not detected Normal NOT DETECTED [facility] Comment on above: Performed By: #### B MP #### [facility] [address] [place] [address] Dr. Deepak Greenfield Influenza A H1 Not detected Normal NOT DETECTED The [facility] Comment on above: Performed By: #### B MP #### [facility] [address] [place] [address] Dr. Deepak Greenfield Influenza A H1 2009 Not detected Normal NOT DETECTED [facility] Comment on above: Performed By: #### B MP #### [facility] [address] [place] [address] Dr. Deepak Greenfield Influenza A H3 Not detected Normal NOT DETECTED The [facility] Comment on above: Performed By: #### B MP #### [facility] [address] [place] [address] Dr. Deepak Greenfield Influenza B Not detected Normal NOT DETECTED [facility] Comment on above: Performed By: #### B MP #### [facility] [address] [place] [address] Dr. Deepak Greenfield Metapneumovirus Detected Abnormal NOT DETECTED The [facility] Comment on above: Performed By: #### B MP #### [facility] [address] [place] [address] Dr. Deepak Greenfield Mycoplas. Pneumoniae Not detected Normal NOT DETECTED [facility] Comment on above: Performed By: #### B MP #### [facility] [address] [address] [address] Deepak [place]field Parainfluenza 1 Not detected Normal NOT DETECTED [facility] Comment on above: Performed By: #### B MP #### [facility] [address] [place] [address] Dr. Deepak [place]field Parainfluenza 2 Not detected Normal NOT DETECTED [facility] Comment on above: Performed By: #### B MP #### [facility] [address] [place] [address] Dr. Deepak Greenfield Parainfluenza 3 Not detected Normal NOT DETECTED [facility] Comment on above: Performed By: #### B MP #### [facility] [address] [place] [address] Dr. Deepak Greenfield Parainfluenza 4 Not detected Normal NOT DETECTED [facility] Comment on above: Performed By: #### B MP #### [facility] [address] [place] [address] Dr. Deepak Greenfield Rhino/Enterovirus Not detected Normal NOT DETECTED [facility] Comment on above: Performed By: #### B MP #### [facility] [address] [place] [address] Dr. Deepak Greenfield RP2 Header 1 RESPIRATORY PANEL: VIRUSES Normal [facility] Comment on above: Performed By: #### B MP #### [facility] [address] [place] [address] Dr. Deepak Greenfield RP2 Header 2 RESPIRATORY PANEL: BACTERIA Normal [facility] Comment on above: Performed By: #### B MP #### [facility] [address] [place] [address] Dr. Deepak [place] RSV Not detected Normal NOT DETECTED [facility] Comment on above: Performed By: #### B MP #### [facility] [address] [place] [address] Dr. Deepak Greenfield SARS-CoV-2 (COVID-19) RNA CINDY+probe Ql (Unsp spec) Not detected Normal NOT DETECTED [facility] Comment on above: Performed By: #### B MP #### [facility] [address] [address] [address] Deepak Greenfield XR CHEST 1 Von [...] Akua PEREZ Date: 2022-07-28 20:23 Normal [facility] AMMONIAon 07-27-2022 Ammonia (P) [Moles/Vol] 76 umol/L Critically high 11-32 [facility] Comment on above: Performed By: #### M Lacy, CMP #### [facility] [address] [address] [address] Deepak Greenfield CBC W MANUAL DIFFon 07-28-19 23 ATYPICAL LYMPH # Normal [facility] Comment on above: Performed By: #### M G, CMP #### [facility] [address] [address] [address] Deepak Greenfield ATYPICAL LYMPH % Normal [facility] Comment on above: Performed By: #### M G, CMP #### [facility] [address] [address] [address] Deepak Greenfield BAND # 0.4 103/ul Critically high 0.0-0.3 [facility] Comment on above: Performed By: #### M G, CMP #### [facility] [address] [address] [address] Deepak Greenfield BAND % 4 % Normal 0-5 [facility] Comment on above: Performed By: #### M G, CMP #### [facility] [address] [place] [address] Dr. Deepak Greenfield BASOM # 0.00 103/ul Normal 0.00-0.10 [facility] Comment on above: Performed By: #### M G, CMP #### [facility] [address] [place] [address] Dr. Deepak Greenfield BASOM % 0.0 % Critically low 0.2-2.0 [facility] Comment on above: Performed By: #### M G, CMP #### [facility] [address] [place] [address] Dr. Deepak Greenfield BLAST # Normal [facility] Comment on above: Performed By: #### M G, CMP #### [facility] [address] [place] [address] Dr. Deepak Greenfield BLAST % Normal [facility] Comment on above: Performed By: #### M G, CMP #### [facility] [address] [place] [address] Dr. Deepak Greenfield CORRECTED WBC Normal 4.0-11.0 [facility] Comment on above: Performed By: #### M G, CMP #### [facility] [address] [place] [address] Dr. Deepak Greenfield EOS # 0.00 103/ul Normal 0.00-0.70 [facility] Comment on above: Performed By: #### M G, CMP #### [facility] [address] [place] [address] Dr. Deepak Greenfield EOS% 0.0 % Critically low 0.9-7.0 [facility] Comment on above: Performed By: #### M G, CMP #### [facility] [address] [place] [address] Dr. Deepak Greenfield HCT 29.6 % Critically low 42.0-54.0 [facility] Comment on above: Performed By: #### M G, CMP #### [facility] [address] [place] [address] Dr. Deepak Greenfield HGB 10.4 g/dl Critically low 14.0-18.0 [facility] Comment on above: Performed By: #### M G, CMP #### [facility] [address] [address] [address] Deepak Greenfield LYMPHM # 0.71 103/ul Critically low 1.20-3.80 [facility] Comment on above: Performed By: #### M G, CMP #### [facility] [address] [address] [address] Deepak Greenfield LYMPHM% 8.0 % Critically low 20.5-60.0 [facility] Comment on above: Performed By: #### M G, CMP #### [facility] [address] [address] [address] Deepak Greenfield MCH 33.0 pg Normal 25.9-34.0 [facility] Comment on above: Performed By: #### M G, CMP #### [facility] [address] [place] [address] Dr. Deepak Greenfield MCHC 35.1 g/dl Normal 29.9-35.2 [facility] Comment on above: Performed By: #### M G, CMP #### [facility] [address] [place] [address] Dr. Deepak Greenfield MCV 94.0 fL Normal 80.0-94.0 [facility] Comment on above: Performed By: #### M G, CMP #### [facility] [address] [place] [address] Dr. Deepak Greenfield METAMYELOCYTE # Normal [facility] Comment on above: Performed By: #### M G, CMP #### [facility] [address] [place] [address] Dr. Deepak Greenfield METAMYELOCYTE % Normal [facility] Comment on above: Performed By: #### M G, CMP #### [facility] [address] [place] [address] Dr. Deepak Greenfield MONOM# 0.71 103/ul Normal 0.30-0.80 [facility] Comment on above: Performed By: #### M G, CMP #### [facility] [address] [address] [address] Deepak Greenfield MONOM% 8.0 % Normal 1.7-12.0 [facility] Comment on above: Performed By: #### M G, CMP #### [facility] [address] [address] [address] Deepak Greenfield MPV 9.6 fL Normal 9.5-13.5 [facility] Comment on above: Performed By: #### M G, CMP #### [facility] [address] [address] [address] Deepak Greenfield MYELOCYTE # Normal [facility] Comment on above: Performed By: #### M G, CMP #### [facility] [address] [place] [address] Dr. Deepak Greenfield MYELOCYTE % Normal [facility] Comment on above: Performed By: #### M G, CMP #### [facility] [address] [address] [address] Deepak Greenfield NRBC Normal [facility] Comment on above: Performed By: #### M G, CMP #### [facility] [address] [place] [address] Dr. Deepak Greenfield PLT 267 103/ul Normal 150-450 [facility] Comment on above: Performed By: #### M G, CMP #### [facility] [address] [address] [address] Deepak Greenfield RBC 3.15 106/ul Critically low 4.70-6.10 [facility] Comment on above: Performed By: #### M G, CMP #### [facility] [address] [address] [address] Deepak Greenfield RDW 12.9 % Normal 11.0-15.0 [facility] Comment on above: Performed By: #### M G, CMP #### [facility] [address] [address] [address] Deepak Greenfield SEG # 7.12 103/ul Critically high 1.40-6.50 [facility] Comment on above: Performed By: #### M G, CMP #### [facility] [address] [address] [address] Deepak Greenfield SEG % 80.0 % Critically high 43.0-75.0 [facility] Comment on above: Performed By: #### M G, CMP #### [facility] [address] [address] [address] Deepak Greenfield WBC 8.9 103/ul Normal 4.0-11.0 [facility] Comment on above: Performed By: #### M G, CMP #### [facility] [address] [address] [address] Deepak Greenfield PROF CHEM 8 (BAS METB)on Anion gap [Moles/Vol] 12.4 mmol/L Normal [facility] Comment on above: Performed By: #### C BC #### [facility] [address] [place] [address] Dr. Deepak Greenfield Calcium [Mass/Vol] 8.2 mg/dL Critically low 8.5-10.1 [facility] Comment on above: Performed By: #### C BC #### [facility] [address] [place] [address] Dr. Deepak Greenfield Chloride [Moles/Vol] 101 mmol/L Normal 98-107 [facility] Comment on above: Performed By: #### C BC #### [facility] [address] [place] [address] Dr. Deepak Greenfield CO2 [Moles/Vol] 25.0 mmol/L Normal 21.0-32.0 [facility] Comment on above: Performed By: #### C BC #### [facility] [address] [address] [address] Deepak Greenfield Creatinine [Mass/Vol] 0.53 mg/dL Critically low 0.70-1.30 [facility] Comment on above: Performed By: #### C BC #### [facility] [address] [place] [address] Dr. Deepak Greenfield EGFR-AF [place] >60 Normal >=60 [facility] Comment on above: Performed By: #### C BC #### [facility] [address] [address] [address] Deepak Greenfield EGFR-NON AF [place] >60 Normal >=60 [facility] Comment on above: Performed By: #### C BC #### [facility] [address] [address] [address] Deepak Greenfield Glucose [Mass/Vol] 161 mg/dL Critically high 74-106 [facility] Comment on above: Performed By: #### C BC #### [facility] [address] [address] [address] Deepak Greenfield Potassium [Moles/Vol] 4.4 mmol/L Normal 3.5-5.1 [facility] Comment on above: Performed By: #### C BC #### [facility] [address] [place] [address] Dr. Deepak Greenfield Sodium [Moles/Vol] 134 mmol/L Critically low 136-145 [facility] Comment on above: Performed By: #### C BC #### [facility] [address] [address] [address] Deepak Greenfield Urea nitrogen [Mass/Vol] 13.0 mg/dL Normal 7.0-18.0 [facility] Comment on above: Performed By: #### C BC #### [facility] [address] [place] [address] Dr. Deepak Greenfield Urea nitrogen/Creatinine [Mass ratio] 24.5 mg/mg Normal [facility] Comment on above: Performed By: #### C BC #### [facility] [address] [place] [address] Dr. Deepak Greenfield AMMONIAon 07-26-2022 Ammonia (P) [Moles/Vol] 56 umol/L Critically high 11-32 [facility] Comment on above: Performed By: #### M G, CMP #### [facility] [address] [address] [address] Deepak Greenfield CARDIAC BEATRIS ADMITon 023 CK [Catalytic activity/Vol] 83 U/L Normal 39-308 [facility] Comment on above: Performed By: #### B MP #### [facility] [address] [place] [address] Dr. Deepak Greenfield CK.MB [Mass/Vol] 0.86 ng/mL Normal <=3.60 [facility] Comment on above: Performed By: #### B MP #### [facility] [address] [place] [address] Dr. Deepak Greenfield HSTROP 7.4 pg/mL Normal 4.0-76.1 [facility] Comment on above: Result Comment: CUT- OFF POINTS HAVE BEEN ESTABLISHED BASED ON THE FOURTH UNIVERSAL DEFINITIONS OF MYOCARDIAL INFARCTION. THE UPPER REFERENCE LIMIT (URL) OF TROPONIN, DEFINED THE 99TH PERCENTILE OF cTnI DISTRIBUTION IN A REFERENCE POPULATION, HAS BEEN CONFIRMED THE DECISION THRESHOLD FOR [place] DIAGNOSIS. Performed By: #### B MP #### [facility] [address] [place] [address] Dr. Deepak Greenfield VALE 46 ng/mL Normal 16-96 [facility] Comment on above: Performed By: #### B MP #### [facility] [address] [place] [address] Dr. Deepak Greenfield CBC AUTO DIFFon 07-26-2022 BASO # 0.1 103/ul Normal 0.0-0.1 [facility] Comment on above: Performed By: #### M G, CMP #### [facility] [address] [place] [address] Dr. Deepak Greenfield Basophils/100 WBC (Bld) 0.5 % Normal 0.2-2.0 [facility] Comment on above: Performed By: #### M G, CMP #### [facility] [address] [place] [address] Dr. Deepak Greenfield EO # 0.2 103/ul Normal 0.0-0.7 [facility] Comment on above: Performed By: #### M G, CMP #### [facility] [address] [place] [address] Dr. Deepak Greenfield Eosinophils/100 WBC (Bld) 2.1 % Normal 0.9-7.0 [facility] Comment on above: Performed By: #### M G, CMP #### [facility] [address] [place] [address] Dr. Deepak Greenfield Erythrocyte distribution width (RBC) [Ratio] 13.2 % Normal 11.0-15.0 [facility] Comment on above: Performed By: #### M G, CMP #### [facility] [address] [place] [address] Dr. Deepak Greenfield Hematocrit (Bld) [Volume fraction] 36.7 % Critically low 42.0-54.0 [facility] Comment on above: Performed By: #### M G, CMP #### [facility] [address] [place] [address] Dr. Deepak Greenfield Hemoglobin (Bld) [Mass/Vol] 12.4 g/dL Critically low 14.0-18.0 [facility] Comment on above: Performed By: #### M G, CMP #### [facility] [address] [place] [address] Dr. Deepak Greenfield IG # 0.04 10e3/ul Critically high 0.00-0.03 [facility] Comment on above: Performed By: #### M G, CMP #### [facility] [address] [place] [address] Dr. Deepak Greenfield IG % 0.4 % Normal 0.0-0.5 [facility] Comment on above: Performed By: #### M G, CMP #### [facility] [address] [place] [address] Dr. Deepak Greenfield LYMPH # 1.7 103/ul Normal 1.2-3.8 [facility] Comment on above: Performed By: #### M G, CMP #### [facility] [address] [place] [address] Dr. Deepak Greenfield Lymphocytes/100 WBC (Bld) 15.6 % Critically low 20.5-60.0 [facility] Comment on above: Performed By: #### M G, CMP #### [facility] [address] [place] [address] Dr. Deepak Greenfield MANUAL DIFF REQ NO Normal [facility] Comment on above: Performed By: #### M G, CMP #### [facility] [address] [place] [address] Dr. Deepak Greenfield MCH (RBC) [Entitic mass] 32.5 pg Normal 25.9-34.0 [facility] Comment on above: Performed By: #### M G, CMP #### [facility] [address] [place] [address] Dr. Deepak Greenfield MCHC (RBC) [Mass/Vol] 33.8 g/dL Normal 29.9-35.2 [facility] Comment on above: Performed By: #### M G, CMP #### [facility] [address] [place] [address] Dr. Deepak Greenfield MCV (RBC) [Entitic vol] 96.3 fL Critically high 80.0-94.0 [facility] Comment on above: Performed By: #### M G, CMP #### [facility] [address] [place] [address] Dr. Deepak Greenfield MONO # 1.4 103/ul Critically high 0.3-0.8 [facility] Comment on above: Performed By: #### M G, CMP #### [facility] [address] [place] [address] Dr. Deepak Greenfield Monocytes/100 WBC (Bld) 12.8 % Critically high 1.7-12.0 [facility] Comment on above: Performed By: #### M G, CMP #### [facility] [address] [place] [address] Dr. Deepak Greenfield NEUT # 7.4 103/ul Critically high 1.4-6.5 [facility] Comment on above: Performed By: #### M G, CMP #### [facility] [address] [place] [address] Dr. Deepak Greenfield Neutrophils/100 WBC (Bld) 68.6 % Normal 43.0-75.0 [facility] Comment on above: Performed By: #### M G, CMP #### [facility] [address] [place] [address] Dr. Deepak Greenfield Platelet mean volume (Bld) [Entitic vol] 9.5 fL Normal 9.5-13.5 [facility] Comment on above: Performed By: #### M G, CMP #### [facility] [address] [place] [address] Dr. Deepak Greenfield PLT 314 103/ul Normal 150-450 [facility] Comment on above: Performed By: #### M G, CMP #### [facility] [address] [address] [address] Deepak Greenfield RBC 3.81 106/ul Critically low 4.70-6.10 [facility] Comment on above: Performed By: #### M G, CMP #### [facility] [address] [place] [address] Dr. Deepak Greenfield WBC 10.8 103/ul Normal 4.0-11.0 [facility] Comment on above: Performed By: #### M G, CMP #### [facility] [address] [place] [address] Dr. Deepak Greenfield Covid-19 PCR (CVDTB)on SARS-CoV-2 (COVID-19) RNA CINDY+probe Ql (Unsp spec) Not detected Normal NOT DETECTED [facility] Comment on above: Result Comment: When [...] for this test is supported by the Field Care Manager of Health and Human Service's declaration [...] used). Performed By: #### C VDTBH #### [facility] [address] [place] [address] Dr. Deepak Greenfield INFLUENZA A AND B AGon 07-26 INFLUANEGH SEE BELOW Normal [facility] Comment on above: Result Comment: Nega tive for Flu A protein angiten. Infection due to Flu A cannot be ruled out. Flu A angiten in the sample may be below the detection limit of the test. Performed By: #### I NFLUAB #### [facility] [address] [place] [address] Dr. Deepak Greenfield INFLUBNEGH SEE BELOW Normal [facility] Comment on above: Result Comment: Nega tive for Flu B protein antigen. Infection due to Flu B cannot be ruled out. Flu B antigen in the sample may be below the detection limit of the test. Performed By: #### I NFLUAB #### [facility] [address] [place] [address] Dr. Deepak Greenfield INFLUENZA A AG Negative Normal NEGATIVE SEE COMMENT [facility] Comment on above: Performed By: #### I NFLUAB #### [facility] [address] [place] [address] Dr. Deepak Greenfield INFLUENZA B AG Negative Normal NEGATIVE SEE COMMENT [facility] Comment on above: Performed By: #### I NFLUAB #### [facility] [address] [place] [address] Dr. Deepak Greenfield LACTATE/LACTIC ACIDon 2022 Lactate [Moles/Vol] 1.2 mmol/L Normal 0.4-2.0 [facility] Comment on above: Performed By: #### M G, CMP #### [facility] [address] [place] [address] Dr. Deepak Greenfield PROF 14(COMP METB)on 023 Albumin [Mass/Vol] 3.3 g/dL Critically low 3.4-5.0 [facility] Comment on above: Performed By: #### B MP #### [facility] [address] [place] [address] Dr. Deepak Greenfield Albumin/Globulin [Mass ratio] 0.8 {ratio} Normal [facility] Comment on above: Performed By: #### B MP #### [facility] [address] [address] [address] Deepak Greenfield ALP [Catalytic activity/Vol] 45 U/L Critically low 46-116 [facility] Comment on above: Performed By: #### B MP #### [facility] [address] [address] [address] Deepak Greenfield ALT [Catalytic activity/Vol] 114 U/L Critically high 16-63 [facility] Comment on above: Performed By: #### B MP #### [facility] [address] [address] [address] Deepak Greenfield Anion gap [Moles/Vol] 14.5 mmol/L Normal [facility] Comment on above: Performed By: #### B MP #### [facility] [address] [place] [address] Dr. Deepak Greenfield AST [Catalytic activity/Vol] 71 U/L Critically high 15-37 [facility] Comment on above: Performed By: #### B MP #### [facility] [address] [place] [address] Dr. Deepak Greenfield Bilirubin [Mass/Vol] 0.7 mg/dL Normal 0.2-1.0 [facility] Comment on above: Performed By: #### B MP #### [facility] [address] [place] [address] Dr. Deepak Greenfield Calcium [Mass/Vol] 9.1 mg/dL Normal 8.5-10.1 [facility] Comment on above: Performed By: #### B MP #### [facility] [address] [place] [address] Dr. Deepak Greenfield Chloride [Moles/Vol] 98 mmol/L Normal 98-107 [facility] Comment on above: Performed By: #### B MP #### [facility] [address] [address] [address] Deepak Greenfield CO2 [Moles/Vol] 27.4 mmol/L Normal 21.0-32.0 [facility] Comment on above: Performed By: #### B MP #### [facility] [address] [address] [address] Deepak Greenfield Creatinine [Mass/Vol] 0.65 mg/dL Critically low 0.70-1.30 [facility] Comment on above: Performed By: #### B MP #### [facility] [address] [place] [address] Dr. Deepak Greenfield EGFR-AF [place] >60 Normal >=60 [facility] Comment on above: Performed By: #### B MP #### [facility] [address] [address] [address] Deepak Greenfield EGFR-NON AF [place] >60 Normal >=60 [facility] Comment on above: Performed By: #### B MP #### [facility] [address] [place] [address] Dr. Deepak Greenfield Globulin (S) [Mass/Vol] 4.2 g/dL Normal [facility] Comment on above: Performed By: #### B MP #### [facility] [address] [place] [address] Dr. Deepak Greenfield Glucose [Mass/Vol] 105 mg/dL Normal 74-[address] [facility] Comment on above: Performed By: #### B MP #### [facility] [address] [place] [address] Dr. Deepak Greenfield Potassium [Moles/Vol] 3.9 mmol/L Normal 3.5-5.1 [facility] Comment on above: Performed By: #### B MP #### [facility] [address] [place] [address] Dr. Deepak Greenfield Protein [Mass/Vol] 7.5 g/dL Normal 6.4-8.[address] [facility] Comment on above: Performed By: #### B MP #### [facility] [address] [place] [address] Dr. Deepak Greenfield Sodium [Moles/Vol] 136 mmol/L Normal 136-[address] [facility] Comment on above: Performed By: #### B MP #### [facility] [address] [place] [address] Dr. Deepak Greenfield Urea nitrogen [Mass/Vol] 13.0 mg/dL Normal 7.0-18.0 [facility] Comment on above: Performed By: #### B MP #### [facility] [address] [address] [address] Deepak Greenfield Urea nitrogen/Creatinine [Mass ratio] 20.0 mg/mg Normal [facility] Comment on above: Performed By: #### B MP #### [facility] [address] [place], [place] [address] Dr. Deepak Greenfield XR CHEST 1 Von [...] by: ANICETO GARCIA Date: 2022-07-26 12:27 Normal [facility] Consent for Treatmenton Consent for Treatment [id number]:127 Normal [facility] Physician Orderon 07-23-2022 Physician Order [id number] 1.00CD:127 Normal [facility] XR Adult Swallowing Function w/ Videoon [...] mGy = 11.70 DAP = 270.92 Normal [facility] AMMONIAon 06-03-2022 Ammonia (P) [Moles/Vol] 112 umol/L Critically high 11-32 [facility] Comment on above: Performed By: #### A MM #### [facility] [address] [place] [address] Dr. Deepak Greenfield DEPAKENE/ VALPROIC ACIDon DEPAKENE 94.0 ug/ml Normal 50.0-100.0 [facility] Comment on above: Performed By: #### C BC #### [facility] [address] [place] [address] Dr. Deepak Greenfield LIVER PROFILEon 06-03-2022 Albumin [Mass/Vol] 3.6 g/dL Normal 3.4-5.0 [facility] Comment on above: Performed By: #### C BC #### [facility] [address] [place] [address] Dr. Deepak Greenfield Albumin/Globulin [Mass ratio] 0.9 {ratio} Normal [facility] Comment on above: Performed By: #### C BC #### [facility] [address] [place] [address] Dr. Deepak Greenfield ALP [Catalytic activity/Vol] 55 U/L Normal 46-116 [facility] Comment on above: Performed By: #### C BC #### [facility] [address] [place] [address] Dr. Deepak Greenfield ALT [Catalytic activity/Vol] 76 U/L Critically high 16-63 [facility] Comment on above: Performed By: #### C BC #### [facility] [address] [address] [address] Deepak Greenfield AST [Catalytic activity/Vol] 51 U/L Critically high 15-37 [facility] Comment on above: Performed By: #### C BC #### [facility] [address] [address] [address] Deepak Greenfield BILI, CONJUGATED 0.1 mg/dL Normal 0.0-0.2 [facility] Comment on above: Performed By: #### C BC #### [facility] [address] [address] [address] Deepak Greenfield Bilirubin [Mass/Vol] 0.4 mg/dL Normal 0.2-1.0 [facility] Comment on above: Performed By: #### C BC #### [facility] [address] [address] [address] Deepak Greenfield Globulin (S) [Mass/Vol] 4.1 g/dL Normal [facility] Comment on above: Performed By: #### C BC #### [facility] [address] [address] [address] Deepak Greenfield Protein [Mass/Vol] 7.7 g/dL Normal 6.4-8.2 [facility] Comment on above: Performed By: #### C BC #### [facility] [address] [address] [address] Deepak Greenfield AMMONIAon 04-22-2022 Ammonia (P) [Moles/Vol] 108 umol/L Critically high 11-32 [facility] Comment on above: Performed By: #### B MP #### [facility] [address] [address] [address] Deepak Greenfield CBC AUTO DIFFon 04-22-2022 BASO # 0.0 103/ul Normal 0.0-0.1 [facility] Comment on above: Performed By: #### C BC #### [facility] [address] [address] [address] Deepak Greenfiedl Basophils/100 WBC (Bld) 0.5 % Normal 0.2-2.0 [facility] Comment on above: Performed By: #### C BC #### [facility] [address] [place] [address] Dr. Deepak Greenfield EO # 0.1 103/ul Normal 0.0-0.7 [facility] Comment on above: Performed By: #### C BC #### [facility] [address] [place] [address] Dr. Deepak Greenfield Eosinophils/100 WBC (Bld) 1.4 % Normal 0.9-7.0 [facility] Comment on above: Performed By: #### C BC #### [facility] [address] [place] [address] Dr. Deepak Greenfield Erythrocyte distribution width (RBC) [Ratio] 14.2 % Normal 11.0-15.0 [facility] Comment on above: Performed By: #### C BC #### [facility] [address] [place] [address] Dr. Deepak Greenfield Hematocrit (Bld) [Volume fraction] 37.0 % Critically low 42.0-54.0 [facility] Comment on above: Performed By: #### C BC #### [facility] [address] [place] [address] Dr. Deepak Greenfield Hemoglobin (Bld) [Mass/Vol] 12.3 g/dL Critically low 14.0-18.0 [facility] Comment on above: Performed By: #### C BC #### [facility] [address] [place] [address] Dr. Deepak Greenfield IG # 0.00 10e3/ul Normal 0.00-0.03 [facility] Comment on above: Performed By: #### C BC #### [facility] [address] [place] [address] Dr. Deepak Greenfield IG % 0.0 % Normal 0.0-0.5 [facility] Comment on above: Performed By: #### C BC #### [facility] [address] [place] [address] Dr. Deepak Greenfield LYMPH # 3.3 103/ul Normal 1.2-3.8 [facility] Comment on above: Performed By: #### C BC #### [facility] [address] [place] [address] Dr. Deepak Greenfield Lymphocytes/100 WBC (Bld) 51.5 % Normal 20.5-60.0 [facility] Comment on above: Performed By: #### C BC #### [facility] [address] [place] [address] Dr. Deepak Greenfield MANUAL DIFF REQ NO Normal [facility] Comment on above: Performed By: #### C BC #### [facility] [address] [place] [address] Dr. Deepak Greenfield MCH (RBC) [Entitic mass] 32.2 pg Normal 25.9-34.0 [facility] Comment on above: Performed By: #### C BC #### [facility] [address] [place] [address] Dr. Deepak Greenfield MCHC (RBC) [Mass/Vol] 33.2 g/dL Normal 29.9-35.2 [facility] Comment on above: Performed By: #### C BC #### [facility] [address] [place] [address] Dr. Deepak Greenfield MCV (RBC) [Entitic vol] 96.9 fL Critically high 80.0-94.0 [facility] Comment on above: Performed By: #### C BC #### [facility] [address] [place] [address] Dr. Deepak Greenfield MONO # 0.6 103/ul Normal 0.3-0.8 [facility] Comment on above: Performed By: #### C BC #### [facility] [address] [place] [address] Dr. Deepak Greenfield Monocytes/100 WBC (Bld) 9.7 % Normal 1.7-12.0 [facility] Comment on above: Performed By: #### C BC #### [facility] [address] [place] [address] Dr. Deepak Greenfield NEUT # 2.4 103/ul Normal 1.4-6.5 [facility] Comment on above: Performed By: #### C BC #### [facility] [address] [address] [address] Deepak Greenfield Neutrophils/100 WBC (Bld) 36.9 % Critically low 43.0-75.0 [facility] Comment on above: Performed By: #### C BC #### [facility] [address] [address] [address] Deepak Greenfield Platelet mean volume (Bld) [Entitic vol] 10.2 fL Normal 9.5-13.5 [facility] Comment on above: Performed By: #### C BC #### [facility] [address] [address] [address] Deepak Greenfield PLT 248 103/ul Normal 150-450 [facility] Comment on above: Performed By: #### C BC #### [facility] [address] [place] [address] Dr. Deepak Greenfield RBC 3.82 106/ul Critically low 4.70-6.10 [facility] Comment on above: Performed By: #### C BC #### [facility] [address] [address] [address] Deepak Greenfield WBC 6.5 103/ul Normal 4.0-11.0 [facility] Comment on above: Performed By: #### C BC #### [facility] [address] [address] [address] Deepak Greenfield FERRITINon 04-22-2022 Ferritin [Mass/Vol] 152.0 ng/mL Normal 26.0-388.0 [facility] Comment on above: Performed By: #### M G, CMP #### [facility] [address] [address] [address] Deepak Greenfield IRONon 04-22-2022 Iron [Mass/Vol] 136.0 ug/dL Normal 65.0-175.0 [facility] Comment on above: Performed By: #### M G, CMP #### [facility] [address] [place] [address] Dr. Deepak Greenfield MAGNESIUMon 04-22-2022 Magnesium [Mass/Vol] 1.6 mg/dL Critically low 1.8-2.4 [facility] Comment on above: Performed By: #### I NFLUAB #### [facility] [address] [place] [address] Dr. Deepak Greenfield VITAMIN B12on 04-22-2022 Cobalamin (Vitamin B12) [Mass/Vol] 545.0 pg/mL Normal 193.0-986.0 [facility] Comment on above: Performed By: #### M G, CMP #### [facility] [address] [place] [address] Dr. Deepak Greenfield CBC AUTO DIFFon 03-19-2022 BASO # 0.0 103/ul Normal 0.0-0.1 [facility] Comment on above: Performed By: #### M G, CMP #### [facility] [address] [place] [address] Dr. Deepak Greenfield Basophils/100 WBC (Bld) 0.5 % Normal 0.2-2.0 [facility] Comment on above: Performed By: #### M G, CMP #### [facility] [address] [place] [address] Dr. Deepak Greenfield EO # 0.2 103/ul Normal 0.0-0.7 [facility] Comment on above: Performed By: #### M G, CMP #### [facility] [address] [place] [address] Dr. Deepak Greenfield Eosinophils/100 WBC (Bld) 2.0 % Normal 0.9-7.0 [facility] Comment on above: Performed By: #### M G, CMP #### [facility] [address] [place] [address] Dr. Deepak Greenfield Erythrocyte distribution width (RBC) [Ratio] 13.5 % Normal 11.0-15.0 [facility] Comment on above: Performed By: #### M G, CMP #### [facility] [address] [place] [address] Dr. Deepak Greenfield Hematocrit (Bld) [Volume fraction] 38.5 % Critically low 42.0-54.0 [facility] Comment on above: Performed By: #### M G, CMP #### [facility] [address] [address] [address] Deepak Greenfield Hemoglobin (Bld) [Mass/Vol] 12.6 g/dL Critically low 14.0-18.0 [facility] Comment on above: Performed By: #### M G, CMP #### [facility] [address] [address] [address] Deepak Greenfield IG # 0.02 10e3/ul Normal 0.00-0.03 [facility] Comment on above: Performed By: #### M G, CMP #### [facility] [address] [address] [address] Deepak Greenfield IG % 0.2 % Normal 0.0-0.5 [facility] Comment on above: Performed By: #### M G, CMP #### [facility] [address] [place] [address] Dr. Deepak Greenfield LYMPH # 3.1 103/ul Normal 1.2-3.8 [facility] Comment on above: Performed By: #### M G, CMP #### [facility] [address] [address] [address] Deepak Greenfield Lymphocytes/100 WBC (Bld) 36.2 % Normal 20.5-60.0 [facility] Comment on above: Performed By: #### M G, CMP #### [facility] [address] [address] [address] Deepak Greenfield MANUAL DIFF REQ NO Normal [facility] Comment on above: Performed By: #### M G, CMP #### [facility] [address] [address] [address] Deepak Greenfield MCH (RBC) [Entitic mass] 32.1 pg Normal 25.9-34.0 [facility] Comment on above: Performed By: #### M G, CMP #### [facility] [address] [address] [address] Deepak Greenfield MCHC (RBC) [Mass/Vol] 32.7 g/dL Normal 29.9-35.2 [facility] Comment on above: Performed By: #### M G, CMP #### [facility] [address] [address] [address] Deepak Greenfield MCV (RBC) [Entitic vol] 98.0 fL Critically high 80.0-94.0 [facility] Comment on above: Performed By: #### M G, CMP #### [facility] [address] [address] [address] Deepak Greenfield MONO # 0.9 103/ul Critically high 0.3-0.8 [facility] Comment on above: Performed By: #### M G, CMP #### [facility] [address] [place] [address] Dr. Deepak Greenfield Monocytes/100 WBC (Bld) 10.6 % Normal 1.7-12.0 [facility] Comment on above: Performed By: #### M G, CMP #### [facility] [address] [place] [address] Dr. Deepak Greenfield NEUT # 4.3 103/ul Normal 1.4-6.5 [facility] Comment on above: Performed By: #### M G, CMP #### [facility] [address] [place] [address] Dr. Deepak Greenfield Neutrophils/100 WBC (Bld) 50.5 % Normal 43.0-75.0 [facility] Comment on above: Performed By: #### M G, CMP #### [facility] [address] [place] [address] Dr. Deepak Greenfield Platelet mean volume (Bld) [Entitic vol] 9.9 fL Normal 9.5-13.5 [facility] Comment on above: Performed By: #### M G, CMP #### [facility] [address] [place] [address] Dr. Deepak Greenfield PLT 263 103/ul Normal 150-450 [facility] Comment on above: Performed By: #### M G, CMP #### [facility] [address] [place] [address] Dr. Deepak Greenfield RBC 3.93 106/ul Critically low 4.70-6.10 [facility] Comment on above: Performed By: #### M G, CMP #### [facility] [address] [place] [address] Dr. Deepak Greenfield WBC 8.6 103/ul Normal 4.0-11.0 [facility] Comment on above: Performed By: #### M G, CMP #### [facility] [address] [place] [address] Dr. Deepak Greenfield MAGNESIUMon 03-19-2022 Magnesium [Mass/Vol] 1.5 mg/dL Critically low 1.8-2.4 [facility] [facility] Comment on above: Performed By: #### Karishma House, CMP #### [facility] [address] [place] [address] Dr. Deepak Greenfield PROF 14(COMP METB)on 022 Albumin [Mass/Vol] 3.4 g/dL Normal 3.4-5.0 [facility] Comment on above: Performed By: #### Karishma House, CMP #### [facility] [address] [place] [address] Dr. Deepak Greenfield Albumin/Globulin [Mass ratio] 0.9 {ratio} Normal [facility] Comment on above: Performed By: #### Karishma House, CMP #### [facility] [address] [place] [address] Dr. Deepak Greenfield ALP [Catalytic activity/Vol] 47 U/L Normal 46-116 [facility] Comment on above: Performed By: #### Karishma House, CMP #### [facility] [address] [place] [address] Dr. Deepak Greenfield ALT [Catalytic activity/Vol] 48 U/L Normal 16-63 [facility] Comment on above: Performed By: #### Karishma House, CMP #### [facility] [address] [place] [address] Dr. Deepak Greenfield Anion gap [Moles/Vol] 9.5 mmol/L Normal [facility] Comment on above: Performed By: #### Karishma G, CMP #### [facility] [address] [place] [address] Dr. Deepak rGeenfield AST [Catalytic activity/Vol] 30 U/L Normal 15-37 [facility] Comment on above: Performed By: #### M G, CMP #### [facility] [address] [place] [address] Dr. Deepak Greenfield Bilirubin [Mass/Vol] 0.2 mg/dL Normal 0.2-1.0 [facility] Comment on above: Performed By: #### M G, CMP #### [facility] [address] [place] [address] Dr. Deepak Greenfield Calcium [Mass/Vol] 8.7 mg/dL Normal 8.5-10.1 [facility] Comment on above: Performed By: #### M G, CMP #### [facility] [address] [place] [address] Dr. Deepak Greenfield Chloride [Moles/Vol] 105 mmol/L Normal 98-107 [facility] Comment on above: Performed By: #### M G, CMP #### [facility] [address] [place] [address] Dr. Deepak Greenfield CO2 [Moles/Vol] 32.6 mmol/L Critically high 21.0-32.0 [facility] Comment on above: Performed By: #### M G, CMP #### [facility] [address] [place] [address] Dr. Deepak Greenfield Creatinine [Mass/Vol] 0.70 mg/dL Normal 0.70-1.30 [facility] Comment on above: Performed By: #### M G, CMP #### [facility] [address] [place] [address] Dr. Deepak Greenfield EGFR-AF [place] >60 Normal >=60 [facility] Comment on above: Performed By: #### M G, CMP #### [facility] [address] [place] [address] Dr. Deepak Greenfield EGFR-NON AF [place] >60 Normal >=60 [facility] Comment on above: Performed By: #### M G, CMP #### [facility] [address] [place] [address] Dr. Deepak Greenfield Globulin (S) [Mass/Vol] 3.8 g/dL Normal [facility] Comment on above: Performed By: #### M G, CMP #### [facility] [address] [place] [address] Dr. Deepak Greenfield Glucose [Mass/Vol] 98 mg/dL Normal 74-[address] [facility] Comment on above: Performed By: #### M G, CMP #### [facility] [address] [place] [address] Dr. Deepak Greenfield Potassium [Moles/Vol] 4.1 mmol/L Normal 3.5-5.1 [facility] Comment on above: Performed By: #### M G, CMP #### [facility] [address] [place] [address] Dr. Deepak Greenfield Protein [Mass/Vol] 7.2 g/dL Normal 6.4-8.[address] [facility] Comment on above: Performed By: #### M G, CMP #### [facility] [address] [place] [address] Dr. Deepak Greenfield Sodium [Moles/Vol] 143 mmol/L Normal 136-[address] [facility] Comment on above: Performed By: #### M G, CMP #### [facility] [address] [place] [address] Dr. Deepak Greenfield Urea nitrogen [Mass/Vol] 10.0 mg/dL Normal 7.0-18.0 [facility] Comment on above: Performed By: #### M G, CMP #### [facility] [address] [place] [address] Dr. Deepak Greenfield Urea nitrogen/Creatinine [Mass ratio] 14.3 mg/mg Normal [facility] Comment on above: Performed By: #### M G, CMP #### [facility] [address] [place] [address] Dr. Deepak Greenfield VITAMIN D 25 OHon 03-19-2022 VIT D 25-OH 67.5 ng/mL Normal [facility] Comment on above: Performed By: #### M G, CMP #### [facility] [address] [place] [address] Dr. Deepak Greenfield VIT D RANGES SEE BELOW Normal [facility] Comment on above: Result Comment: <20 ng/mL Vit D deficient 20 - <30 ng/mL Vit D insufficient 30 - 100 ng/mL Vit D sufficient >100 ng/mL Potential Toxicity Performed By: #### M Lacy, CMP #### [facility] [address] [place] [address] Dr. Deepak Greenfield AMMONIAon 03-10-2022 Ammonia (P) [Moles/Vol] 36 umol/L Critically high [facility] Comment on above: Performed By: #### C BC #### [facility] [address] [place] [address] Dr. Deepak Greenfield DEPAKENE/ VALPROIC ACIDon DEPAKENE 93.5 ug/ml Normal 50.0-100.0 [facility] Comment on above: Performed By: #### B MP #### [facility] [address] [place] [address] Dr. Deepak Greenfield BNPon 01-24-2022 Natriuretic peptide B (Bld) [Mass/Vol] 183.0 pg/mL Normal <=450.0 [facility] Comment on above: Performed By: #### Karishma House, CMP #### [facility] [address] [place] [address] Dr. Deepak Greenfield CBC AUTO DIFFon 01-24-2022 BASO # 0.0 103/ul Normal 0.0-0.1 [facility] Comment on above: Performed By: #### C VDTBH #### [facility] [address] [place] [address] Dr. Deepak Greenfield Basophils/100 WBC (Bld) 0.3 % Normal 0.2-2.0 [facility] Comment on above: Performed By: #### C VDTBH #### [facility] [address] [place] [address] Dr. Deepak Greenfield EO # 0.1 103/ul Normal 0.0-0.7 [facility] Comment on above: Performed By: #### C VDTBH #### [facility] [address] [place] [address] Dr. Deepak Greenfield Eosinophils/100 WBC (Bld) 0.4 % Critically low 0.9-7.0 [facility] Comment on above: Performed By: #### C VDTBH #### [facility] [address] [place] [address] Dr. Deepak Greenfield Erythrocyte distribution width (RBC) [Ratio] 13.6 % Normal 11.0-15.0 [facility] Comment on above: Performed By: #### C VDTBH #### [facility] [address] [place] [address] Dr. Deepak Greenfield Hematocrit (Bld) [Volume fraction] 39.3 % Critically low 42.0-54.0 [facility] Comment on above: Performed By: #### C VDTBH #### [facility] [address] [place] [address] Dr. Deepak Greenfield Hemoglobin (Bld) [Mass/Vol] 12.6 g/dL Critically low 14.0-18.0 [facility] Comment on above: Performed By: #### C VDTBH #### [facility] [address] [place] [address] Dr. Deepak Greenfield IG # 0.04 10e3/ul Critically high 0.00-0.03 [facility] Comment on above: Performed By: #### C VDTBH #### [facility] [address] [place] [address] Dr. Deepak Greenfield IG % 0.3 % Normal 0.0-0.5 [facility] Comment on above: Performed By: #### C VDTBH #### [facility] [address] [place] [address] Dr. Deepak Greenfield LYMPH # 2.4 103/ul Normal 1.2-3.8 [facility] Comment on above: Performed By: #### C VDTBH #### [facility] [address] [place] [address] Dr. Deepak Greenfield Lymphocytes/100 WBC (Bld) 16.6 % Critically low 20.5-60.0 [facility] Comment on above: Performed By: #### C VDTBH #### [facility] [address] [place] [address] Dr. Deepak Greenfield MANUAL DIFF REQ NO Normal [facility] Comment on above: Performed By: #### C VDTBH #### [facility] [address] [place] [address] Dr. Deepak Greenfield MCH (RBC) [Entitic mass] 32.0 pg Normal 25.9-34.0 [facility] Comment on above: Performed By: #### C VDTBH #### [facility] [address] [place] [address] Dr. Deepak Greenfield MCHC (RBC) [Mass/Vol] 32.1 g/dL Normal 29.9-35.2 [facility] Comment on above: Performed By: #### C VDTBH #### [facility] [address] [place] [address] Dr. Deepak Greenfield MCV (RBC) [Entitic vol] 99.7 fL Critically high 80.0-94.0 [facility] Comment on above: Performed By: #### C VDTBH #### [facility] [address] [place] [address] Dr. Deepak Greenfield MONO # 1.4 103/ul Critically high 0.3-0.8 [facility] Comment on above: Performed By: #### C VDTBH #### [facility] [address] [place] [address] Dr. Deepak Greenfield Monocytes/100 WBC (Bld) 9.8 % Normal 1.7-12.0 [facility] Comment on above: Performed By: #### C VDTBH #### [facility] [address] [place] [address] Dr. Deepak Greenfield NEUT # 10.7 103/ul Critically high 1.4-6.5 [facility] Comment on above: Performed By: #### C VDTBH #### [facility] [address] [place] [address] Dr. Deepak Greenfield Neutrophils/100 WBC (Bld) 72.6 % Normal 43.0-75.0 [facility] Comment on above: Performed By: #### C VDTBH #### [facility] [address] [address] [address] Deepak Greenfield Platelet mean volume (Bld) [Entitic vol] 10.4 fL Normal 9.5-13.5 [facility] Comment on above: Performed By: #### C VDTBH #### [facility] [address] [address] [address] Deepak Greenfield PLT 280 103/ul Normal 150-450 [facility] Comment on above: Performed By: #### C VDTBH #### [facility] [address] [address] [address] Deepak Greenfield RBC 3.94 106/ul Critically low 4.70-6.10 [facility] Comment on above: Performed By: #### C VDTBH #### [facility] [address] [place] [address] Dr. Deepak Greenfield WBC 14.7 103/ul Critically high 4.0-11.0 [facility] Comment on above: Performed By: #### C VDTBH #### [facility] [address] [id number] Deepak Greenfield CULTURE BLOODon 01-24-2022 Microscopic examination of blood, culture Culture Observations: No growth at 5 days. Normal [facility] Comment on above: Performed By: #### C BC #### [facility] [address] [place], [place] [id number] Dr. Deepak Greenfield Microscopic examination of blood, culture Culture Observations: No growth at 5 days. Normal [facility] Comment on above: Performed By: #### C BC #### [facility] [address] [place] [address] Dr. Deepak Greenfield [facility]on SARS-CoV-2 (COVID-19) RNA CINDY+probe Ql (Unsp spec) Not detected Normal NOT DETECTED [facility] Comment on above: Result Comment: When [...] for this test is supported by the [place] [employer] and [employer]'s declaration that [...] used). Performed By: #### I NFLUAB #### [facility] [address] [place] [address] Dr. Deepak Greenfield LACTATE/LACTIC ACIDon 2021 Lactate [Moles/Vol] 1.7 mmol/L Normal 0.4-1.9 [facility] Comment on above: Performed By: #### M G, CMP #### [facility] [address] [place] [address] Dr. Deepak Greenfield PROF 14(COMP METB)on 022 Albumin [Mass/Vol] 3.2 g/dL Critically low 3.4-5.0 [facility] Comment on above: Performed By: #### M G, CMP #### [facility] [address] [place] [address] Dr. Deepak Greenfield Albumin/Globulin [Mass ratio] 0.7 {ratio} Normal [facility] Comment on above: Performed By: #### M G, CMP #### [facility] [address] [place] [address] Dr. Deepak Greenfield ALP [Catalytic activity/Vol] 49 U/L Normal 46-116 [facility] Comment on above: Performed By: #### M G, CMP #### [facility] [address] [place] [address] Dr. Deepak Greenfield ALT [Catalytic activity/Vol] 41 U/L Normal 16-63 [facility] Comment on above: Performed By: #### M G, CMP #### [facility] [address] [address] [address] Deepak Greenfield Anion gap [Moles/Vol] 11.1 mmol/L Normal [facility] Comment on above: Performed By: #### M G, CMP #### [facility] [address] [address] [address] Deepak Greenfield AST [Catalytic activity/Vol] 29 U/L Normal 15-37 [facility] Comment on above: Performed By: #### M G, CMP #### [facility] [address] [address] [address] Deepak Greenfield Bilirubin [Mass/Vol] 0.5 mg/dL Normal 0.2-1.0 [facility] Comment on above: Performed By: #### M G, CMP #### [facility] [address] [place] [address] Dr. Deepak Greenfield Calcium [Mass/Vol] 9.1 mg/dL Normal 8.5-10.1 [facility] Comment on above: Performed By: #### M G, CMP #### [facility] [address] [address] [address] Deepak Greenfield Chloride [Moles/Vol] 108 mmol/L Critically high 98-107 [facility] Comment on above: Performed By: #### M G, CMP #### [facility] [address] [place] [address] Dr. Deepak Greenfield CO2 [Moles/Vol] 25.7 mmol/L Normal 21.0-32.0 [facility] Comment on above: Performed By: #### M G, CMP #### [facility] [address] [address] [address] Deepak Greenfield Creatinine [Mass/Vol] 0.89 mg/dL Normal 0.70-1.30 [facility] Comment on above: Performed By: #### M G, CMP #### [facility] [address] [address] [address] Deepak Greenfield EGFR-AF [place] >60 Normal >=60 [facility] Comment on above: Performed By: #### M G, CMP #### [facility] [address] [address] [address] Deepak Greenfield EGFR-NON AF [place] >60 Normal >=60 [facility] Comment on above: Performed By: #### M G, CMP #### [facility] [address] [address] [address] Deepak Greenfield Globulin (S) [Mass/Vol] 4.5 g/dL Normal [facility] Comment on above: Performed By: #### M G, CMP #### [facility] [address] [address] [address] Deepak Greenfield Glucose [Mass/Vol] 178 mg/dL Critically high 74-106 [facility] Comment on above: Performed By: #### M G, CMP #### [facility] [address] [address] [address] Deepak Greenfield Potassium [Moles/Vol] 3.8 mmol/L Normal 3.5-5.1 [facility] Comment on above: Performed By: #### M G, CMP #### [facility] [address] [address] [address] Deepak Greenfield Protein [Mass/Vol] 7.7 g/dL Normal 6.4-8.[address] [facility] Comment on above: Performed By: #### M G, CMP #### [facility] [address] [address] [address] Deepak Greenfield Sodium [Moles/Vol] 141 mmol/L Normal 136-[address] [facility] Comment on above: Performed By: #### M G, CMP #### [facility] [address] [address] [address] Deepak Greenfield Urea nitrogen [Mass/Vol] 16.0 mg/dL Normal 7.0-18.0 [facility] Comment on above: Performed By: #### M G, CMP #### [facility] [address] [address] [address] Deepak Greenfield Urea nitrogen/Creatinine [Mass ratio] 18.0 mg/mg Normal [facility] Comment on above: Performed By: #### M G, CMP #### [facility] [address] [address] [address] Deepak Greenfield TROPONIN, HIGH SENSITIVITYon 01-24-2022 HSTROP 6.4 pg/mL Normal 4.0-76.1 [facility] Comment on above: Result Comment: CUT- OFF POINTS HAVE BEEN ESTABLISHED BASED ON THE FOURTH UNIVERSAL DEFINITIONS OF MYOCARDIAL INFARCTION. THE UPPER REFERENCE LIMIT (URL) OF TROPONIN, DEFINED THE 99TH PERCENTILE OF cTnI DISTRIBUTION IN A REFERENCE POPULATION, HAS BEEN CONFIRMED THE DECISION THRESHOLD FOR [place] DIAGNOSIS. Performed By: #### M G, CMP #### [facility] [address] [place] [address] Dr. Deepak Greenfield XR CHEST 1 Von [...] ANICETO CROCKER Date: 2022-01-24 15:28 Normal [facility] UA RANDOM W/MICROSCOPICon BACTERIA NONE SEEN Normal NONE SEEN [facility] Comment on above: Performed By: #### C VDTB #### [facility] [address] [place] [address] Dr. Deepak Greenfield Bilirubin Ql (U) Negative Normal NEGATIVE [facility] Comment on above: Performed By: #### C VDTBH #### [facility] [address] [place] [address] Dr. Deepak Greenfield CAST NONE SEEN Normal NONE SEEN [facility] Comment on above: Performed By: #### C VDTBH #### [facility] [address] [place] [address] Dr. Deepak Greenfield Clarity (U) CLEAR Normal CLEAR [facility] Comment on above: Performed By: #### C VDTBH #### [facility] [address] [place] [address] Dr. Deepak Greenfield Color (U) YELLOW Normal YELLOW [facility] Comment on above: Performed By: #### C VDTBH #### [facility] [address] [address] [address] Deepak Greenfield Crystals LM Nom (Urine sed) NONE SEEN Normal NONE SEEN [facility] Comment on above: Performed By: #### C VDTBH #### [facility] [address] [place] [address] Dr. Deepak Greenfield Epithelial cells LM Ql (Urine sed) RARE Normal NONE SEEN /RARE [facility] Comment on above: Performed By: #### C VDTBH #### [facility] [address] [place] [address] Dr. Deepak Greenfield Glucose Ql (U) Negative Normal NEGATIVE [facility] Comment on above: Performed By: #### C VDTBH #### [facility] [address] [place] [address] Dr. Deepak Greenfield Hemoglobin Ql (U) Negative Normal NEGATIVE [facility] Comment on above: Performed By: #### C VDTBH #### [facility] [address] [place] [address] Dr. Deepak Greenfield Ketones Ql (U) 15 mg/dl Abnormal NEGATIVE [facility] Comment on above: Performed By: #### C VDTBH #### [facility] [address] [place] [address] Dr. Deepak Greenfield LEUKOCYTES Negative Normal NEGATIVE [facility] Comment on above: Performed By: #### C VDTBH #### [facility] [address] [place] [address] Dr. Deepak Greenfield MUCOUS NONE SEEN Normal NONE SEEN [facility] Comment on above: Performed By: #### C VDTBH #### [facility] [address] [place] [address] Dr. Deepak Greenfield Nitrite Ql (U) Negative Normal NEGATIVE [facility] Comment on above: Performed By: #### C VDTBH #### [facility] [address] [place] [address] Dr. Deepak Greenfield pH (U) 6.0 [pH] Normal 5-9 [facility] Comment on above: Performed By: #### C VDTBH #### [facility] [address] [place] [address] Dr. Deepak Greenfield RBC 0-2 Normal 0-2 [facility] Comment on above: Performed By: #### C VDTBH #### [facility] [address] [place] [address] Dr. Deepak Greenfield SPEC GRAVITY 1.020 Normal 1.005-<=1.025 [facility] Comment on above: Performed By: #### C VDTBH #### [facility] [address] [place] [address] Dr. Deepak Greenfield UA PROTEIN Negative Normal NEGATIVE/ TRACE [facility] Comment on above: Performed By: #### C VDTBH #### [facility] [address] [place] [address] Dr. Deepak Greenfield Urobilinogen Qn (U) 0.2 {Ottoniel'U}/dL Normal 0.2 - 1. 0 [facility] Comment on above: Performed By: #### C VDTBH #### [facility] [address] [place] [address] Dr. Deepak Greenfield WBC NONE SEEN Normal NONE SEEN [facility] Comment on above: Performed By: #### C VDTBH #### [facility] [address] [place] [address] Dr. Deepak Greenfield ALBUMINon 01-12-2022 Albumin [Mass/Vol] 3.4 g/dL Normal 3.4-5.0 [facility] Comment on above: Performed By: #### C VDTBH #### [facility] [address] [place] [address] Dr. Deepak Greenfield ALKALINE PHOSPHAon ALP [Catalytic activity/Vol] 46 U/L Normal 46-116 [facility] Comment on above: Performed By: #### C VDTBH #### [facility] [address] [place] [address] Dr. Deepak Greenfield AMMONIAon 01-12-2022 Ammonia (P) [Moles/Vol] 93 umol/L Critically high 11-32 [facility] Comment on above: Performed By: #### I NFLUAB #### [facility] [address] [place] [address] Dr. Deepak Greenfield BILIRUBIN CONJUGATED (DIRECT )on 01-12-2022 BILI, CONJUGATED 0.1 mg/dL Normal 0.0-0.2 [facility] Comment on above: Performed By: #### C VDTBH #### [facility] [address] [place] [address] Dr. Deepak Greenfield BILIRUBIN TOTALon 01-12-2022 Bilirubin [Mass/Vol] 0.4 mg/dL Normal 0.2-1.0 [facility] Comment on above: Performed By: #### C VDTBH #### [facility] [address] [place] [address] Dr. Deepak Greenfield CBC AUTO DIFFon 01-12-2022 BASO # 0.0 103/ul Normal 0.0-0.1 [facility] Comment on above: Performed By: #### Karishma House, CMP #### [facility] [address] [place] [address] Dr. Deepak Greenfield Basophils/100 WBC (Bld) 0.3 % Normal 0.2-2.0 [facility] Comment on above: Performed By: #### Karishma House, CMP #### [facility] [address] [place] [address] Dr. Deepak Greenfield EO # 0.1 103/ul Normal 0.0-0.7 [facility] Comment on above: Performed By: #### Karishma House, CMP #### [facility] [address] [place] [address] Dr. Deepak Greenfield Eosinophils/100 WBC (Bld) 1.3 % Normal 0.9-7.0 [facility] Comment on above: Performed By: #### Karishma House, CMP #### [facility] [address] [place] [address] Dr. Deepak Greenfield Erythrocyte distribution width (RBC) [Ratio] 14.2 % Normal 11.0-15.0 [facility] Comment on above: Performed By: #### Karishma House, CMP #### [facility] [address] [place] [address] Dr. Deepak Greenfield Hematocrit (Bld) [Volume fraction] 40.4 % Critically low 42.0-54.0 [facility] Comment on above: Performed By: #### M G, CMP #### [facility] [address] [place] [address] Dr. Deepak Greenfield Hemoglobin (Bld) [Mass/Vol] 13.1 g/dL Critically low 14.0-18.0 [facility] Comment on above: Performed By: #### M G, CMP #### [facility] [address] [place] [address] Dr. Deepak Greenfield IG # 0.01 10e3/ul Normal 0.00-0.03 [facility] Comment on above: Performed By: #### M G, CMP #### [facility] [address] [place] [address] Dr. Deepak Greenfield IG % 0.1 % Normal 0.0-0.5 [facility] Comment on above: Performed By: #### M G, CMP #### [facility] [address] [place] [address] Dr. Deepak Greenfield LYMPH # 3.3 103/ul Normal 1.2-3.8 [facility] Comment on above: Performed By: #### M G, CMP #### [facility] [address] [place] [address] Dr. Deepak Greenfield Lymphocytes/100 WBC (Bld) 42.3 % Normal 20.5-60.0 [facility] Comment on above: Performed By: #### M G, CMP #### [facility] [address] [place] [address] Dr. Deepak Greenfield MANUAL DIFF REQ NO Normal [facility] Comment on above: Performed By: #### M G, CMP #### [facility] [address] [place] [address] Dr. Deepak Greenfield MCH (RBC) [Entitic mass] 32.4 pg Normal 25.9-34.0 [facility] Comment on above: Performed By: #### M G, CMP #### [facility] [address] [place] [address] Dr. Deepak Greenfield MCHC (RBC) [Mass/Vol] 32.4 g/dL Normal 29.9-35.2 [facility] Comment on above: Performed By: #### M G, CMP #### [facility] [address] [address] [address] Deepak Greenfield MCV (RBC) [Entitic vol] 100.0 fL Critically high 80.0-94.0 [facility] Comment on above: Performed By: #### M G, CMP #### [facility] [address] [address] [address] Deepak Greenfield MONO # 0.6 103/ul Normal 0.3-0.8 [facility] Comment on above: Performed By: #### M G, CMP #### [facility] [address] [address] [address] Deepak Greenfield Monocytes/100 WBC (Bld) 7.6 % Normal 1.7-12.0 [facility] Comment on above: Performed By: #### M G, CMP #### [facility] [address] [place] [address] Dr. Deepak Greenfield NEUT # 3.8 103/ul Normal 1.4-6.5 [facility] Comment on above: Performed By: #### M G, CMP #### [facility] [address] [address] [address] Deepak Greenfield Neutrophils/100 WBC (Bld) 48.4 % Normal 43.0-75.0 [facility] Comment on above: Performed By: #### M G, CMP #### [facility] [address] [address] [address] Deepak Greenfield Platelet mean volume (Bld) [Entitic vol] 9.6 fL Normal 9.5-13.5 [facility] Comment on above: Performed By: #### M G, CMP #### [facility] [address] [address] [address] Deepak Greenfield PLT 315 103/ul Normal 150-450 [facility] Comment on above: Performed By: #### M G, CMP #### [facility] [address] [address] [address] Deepak Greenfield RBC 4.04 106/ul Critically low 4.70-6.10 [facility] Comment on above: Performed By: #### M G, CMP #### [facility] [address] [address] [address] Deepak Greenfield WBC 7.9 103/ul Normal 4.0-11.0 [facility] Comment on above: Performed By: #### M G, CMP #### [facility] [address] [place] [address] Dr. Deepak Greenfield DEPAKENE/VALPROICon 01-13-20 DEPAKENE 89.7 ug/ml Normal 50.0-100.0 [facility] Comment on above: Performed By: #### I NFLUAB #### [facility] [address] [place] [address] Dr. Deepak Greenfield PROF CHEM 8 (BAS METB)on Anion gap [Moles/Vol] 12.9 mmol/L Normal [facility] Comment on above: Performed By: #### I NFLUAB #### [facility] [address] [place] [address] Dr. Deepak Greenfield Calcium [Mass/Vol] 8.8 mg/dL Normal 8.5-10.1 [facility] Comment on above: Performed By: #### I NFLUAB #### [facility] [address] [place] [address] Dr. Deepak Greenfield Chloride [Moles/Vol] 103 mmol/L Normal 98-107 [facility] Comment on above: Performed By: #### I NFLUAB #### [facility] [address] [place] [address] Dr. Deepak Greenfield CO2 [Moles/Vol] 28.1 mmol/L Normal 21.0-32.0 [facility] Comment on above: Performed By: #### I NFLUAB #### [facility] [address] [place] [address] Dr. Deepak Greenfield Creatinine [Mass/Vol] 0.58 mg/dL Critically low 0.70-1.30 [facility] Comment on above: Performed By: #### I NFLUAB #### [facility] [address] [address] [address] Deepak Greenfield EGFR-AF [place] >60 Normal >=60 [facility] Comment on above: Performed By: #### I NFLUAB #### [facility] [address] [address] [address] Deepak Greenfield EGFR-NON AF [place] >60 Normal >=60 [facility] Comment on above: Performed By: #### I NFLUAB #### [facility] [address] [address] [address] Deepak Greenfield Glucose [Mass/Vol] 117 mg/dL Critically high 74-106 [facility] Comment on above: Performed By: #### I NFLUAB #### [facility] [address] [address] [address] Deepak Greenfield Potassium [Moles/Vol] 4.0 mmol/L Normal 3.5-5.1 [facility] Comment on above: Performed By: #### I NFLUAB #### [facility] [address] [address] [address] Deepak Greenfield Sodium [Moles/Vol] 140 mmol/L Normal 136-145 [facility] Comment on above: Performed By: #### I NFLUAB #### [facility] [address] [address] [address] Deepak Greenfield Urea nitrogen [Mass/Vol] 7.0 mg/dL Normal 7.0-18.0 [facility] Comment on above: Performed By: #### I NFLUAB #### [facility] [address] [address] [address] Deepak Greenfield Urea nitrogen/Creatinine [Mass ratio] 12.1 mg/mg Normal [facility] Comment on above: Performed By: #### I NFLUAB #### [facility] [address] [address] [address] Deepak Greenfield SGOTon 01-12-2022 AST [Catalytic activity/Vol] 31 U/L Normal 15-37 [facility] Comment on above: Performed By: #### C VDTBH #### [facility] [address] [address] [address] Deepak Greenfield SGPTon 01-12-2022 ALT [Catalytic activity/Vol] 48 U/L Normal 16-63 [facility] Comment on above: Performed By: #### C VDTBH #### [facility] [id number] Deepak Greenfield T PROTEIN SERUMon 01-12-2022 Protein [Mass/Vol] 7.3 g/dL Normal 6.4-8.2 [facility] Comment on above: Performed By: #### B MP #### [facility] [address] [place] [address] Dr. Deepak Greenfield XR CHEST 2 Von [...] by: ANICETO CROCKER Date: 2022-01-06 16:15 Normal [facility] Progress Noteson 12-16-2021 Bridge Operator Authentication Interface Message Text ----- Thursday, December 16, 2021 at 12:03:50 PM ----- ----- Provider: Shanel Powell Hygienist -- Clinic: [place] ----- [facility], Pt is ready for tx. Pt presented for dental evaluation for future OR. Caregiver in the room. Patient is non-verbal. Severe intellectual disability, seizure disorder Caregiver stated patient is not pain and no complaining. Radiograph taken today: no possible due to patient behavior Case requested for OR. Guardian mother Katia Lopez. [phone]. [facility] [phone] EXT [id number] ( [facility] pt's appt) AVS printed and handed flyer for step by step instruction of OR process to Caregiver exam By: Elliott Ham [facility] [place]. OR ----- Signed on Thursday, December 16, 2021 at 12:18:18 PM ----- ----- Provider: Julia - Ap Adams DDS -- Clinic: [place] ----- Normal [facility] [employer] [facility] XR DEXA BONE DENSITYon 11-20 XR [...] by: MARGARITO DAVIES Date: 2021-11-20 11:42 Normal [facility] US SCROTUMon 11-14-2021 US SCROTUM EXAMINATION: [...] KRISTIAN BILLINGS Date: 2021-11-14 07:10 Normal [facility] AMMONIAon 10-31-2021 Ammonia (P) [Moles/Vol] 88 umol/L Critically high [facility] Comment on above: Performed By: #### M G, CMP #### [facility] [address] [place] [address] Dr. Deepak Greenfield AMMONIAon 10-30-2021 Ammonia (P) [Moles/Vol] 103 umol/L Critically high [facility] Comment on above: Result Comment: SPEC IMEN SLIGHTLY HEMOLYZED MAY AFFECT AMM RESULT Performed By: #### I NFLUAB #### [facility] [address] [place] [address] Dr. Deepak Greenfield WOUND CULTUREon 10-23-2021 Bacteria identified Aer cx Nom (Unsp spec) Final report Normal [facility] Comment on above: Performed By: #### C XWND #### [facility] [address] [place] [address] Dr. Deepak Greenfield Result 1 Comment Normal [facility] Comment on above: Result Comment: No g rowth in 36 - 48 hours. Performed By: #### C XWND #### [facility] [address] [place] [address] Dr. Deepak Greenfield WOUND CULTUREon 10-02-2021 Bacteria identified Aer cx Nom (Unsp spec) Final report Normal [facility] Comment on above: Performed By: #### A MM #### [facility] [address] [place] [address] Dr. Deepak Greenfield Result 1 Mixed skin omid Normal [facility] Comment on above: Performed By: #### A MM #### [facility] [address] [place] [address] Dr. Deepak Greenfield AMYLASEon 09-22-2021 Amylase [Catalytic activity/Vol] 24 U/L Critically low 25-115 [facility] Comment on above: Performed By: #### C BC #### [facility] [address] [place] [address] Dr. Deepak Greenfield CBC AUTO DIFFon 09-22-2021 BASO # 0.0 103/ul Normal 0.0-0.1 [facility] Comment on above: Performed By: #### C VDTBH #### [facility] [address] [place] [address] Dr. Deepak Greenfield Basophils/100 WBC (Bld) 0.5 % Normal 0.2-2.0 [facility] Comment on above: Performed By: #### C VDTBH #### [facility] [address] [place] [address] Dr. Deepak Greenfield EO # 0.1 103/ul Normal 0.0-0.7 [facility] Comment on above: Performed By: #### C VDTBH #### [facility] [address] [place] [address] Dr. Deepak Greenfield Eosinophils/100 WBC (Bld) 1.3 % Normal 0.9-7.0 [facility] Comment on above: Performed By: #### C VDTBH #### [facility] [address] [place] [address] Dr. Deepak Greenfield Erythrocyte distribution width (RBC) [Ratio] 13.9 % Normal 11.0-15.0 [facility] Comment on above: Performed By: #### C VDTBH #### [facility] [address] [place] [address] Dr. Deepak Greenfield Hematocrit (Bld) [Volume fraction] 40.0 % Critically low 42.0-54.0 [facility] Comment on above: Performed By: #### C VDTBH #### [facility] [address] [place] [address] Dr. Deepak Greenfield Hemoglobin (Bld) [Mass/Vol] 13.0 g/dL Critically low 14.0-18.0 [facility] Comment on above: Performed By: #### C VDTBH #### [facility] [address] [place] [address] Dr. Deepak Greenfield IG # 0.01 10e3/ul Normal 0.00-0.03 [facility] Comment on above: Performed By: #### C VDTBH #### [facility] [address] [place] [address] Dr. Deepak Greenfield IG % 0.2 % Normal 0.0-0.5 [facility] Comment on above: Performed By: #### C VDTBH #### [facility] [address] [place] [address] Dr. Deepak Greenfield LYMPH # 3.0 103/ul Normal 1.2-3.8 [facility] Comment on above: Performed By: #### C VDTBH #### [facility] [address] [place] [address] Dr. Deepak Greenfield Lymphocytes/100 WBC (Bld) 47.9 % Normal 20.5-60.0 [facility] Comment on above: Performed By: #### C VDTBH #### [facility] [address] [place] [address] Dr. Deepak Greenfield MANUAL DIFF REQ NO Normal [facility] Comment on above: Performed By: #### C VDTBH #### [facility] [address] [place] [address] Dr. Deepak Greenfield MCH (RBC) [Entitic mass] 32.9 pg Normal 25.9-34.0 [facility] Comment on above: Performed By: #### C VDTBH #### [facility] [address] [place] [address] Dr. Deepak Greenfield MCHC (RBC) [Mass/Vol] 32.5 g/dL Normal 29.9-35.2 [facility] Comment on above: Performed By: #### C VDTBH #### [facility] [address] [place] [address] Dr. Deepak Greenfield MCV (RBC) [Entitic vol] 101.3 fL Critically high 80.0-94.0 [facility] Comment on above: Performed By: #### C VDTBH #### [facility] [address] [address] [address] Deepak Greenfield MONO # 0.7 103/ul Normal 0.3-0.8 [facility] Comment on above: Performed By: #### C VDTBH #### [facility] [address] [place] [address] Dr. Deepak Greenfield Monocytes/100 WBC (Bld) 10.3 % Normal 1.7-12.0 [facility] Comment on above: Performed By: #### C VDTBH #### [facility] [address] [place] [address] Dr. Deepak Greenfield NEUT # 2.5 103/ul Normal 1.4-6.5 [facility] Comment on above: Performed By: #### C VDTBH #### [facility] [address] [place] [address] Dr. Deepak Greenfield Neutrophils/100 WBC (Bld) 39.8 % Critically low 43.0-75.0 [facility] Comment on above: Performed By: #### C VDTBH #### [facility] [address] [place] [address] Dr. Deepak Greenfield Platelet mean volume (Bld) [Entitic vol] 10.1 fL Normal 9.5-13.5 [facility] Comment on above: Performed By: #### C VDTBH #### [facility] [address] [place] [address] Dr. Deepak Greenfield PLT 311 103/ul Normal 150-450 [facility] Comment on above: Performed By: #### C VDTBH #### [facility] [address] [place] [address] Dr. Deepak Greenfield RBC 3.95 106/ul Critically low 4.70-6.10 [facility] Comment on above: Performed By: #### C VDTBH #### [facility] [address] [place] [address] Dr. Deepak Greenfield WBC 6.3 103/ul Normal 4.0-11.0 [facility] Comment on above: Performed By: #### C VDTBH #### [facility] [address] [address] [address] ABD/PELV W CONon [...] JAMIE ALICIA Date: 2021-09-22 02:34 Normal [facility] CT HEAD WO CONon 09-22-2021 CT [...] by: BRITTON FONTENOT Date: 2021-09-22 01:13 Normal [facility] LIPASEon 09-22-2021 Lipase [Catalytic activity/Vol] 28.0 U/L Critically low 73.0-393.0 [facility] Comment on above: Performed By: #### C BC #### [facility] [address] [place] [address] Dr. Deepak Greenfield PROF 14(COMP METB)on 022 Albumin [Mass/Vol] 3.3 g/dL Critically low 3.4-5.0 [facility] Comment on above: Performed By: #### B MP #### [facility] [address] [place] [address] Dr. Deepak Greenfield Albumin/Globulin [Mass ratio] 0.9 {ratio} Normal [facility] Comment on above: Performed By: #### B MP #### [facility] [address] [place] [address] Dr. Deepak Greenfield ALP [Catalytic activity/Vol] 38 U/L Critically low 46-116 [facility] Comment on above: Performed By: #### B MP #### [facility] [address] [address] [address] Deepak Greenfield ALT [Catalytic activity/Vol] 91 U/L Critically high 16-63 [facility] Comment on above: Performed By: #### B MP #### [facility] [address] [place] [address] Dr. Deepak Greenfield Anion gap [Moles/Vol] 10.2 mmol/L Normal [facility] Comment on above: Performed By: #### B MP #### [facility] [address] [address] [address] Deepak Greenfield AST [Catalytic activity/Vol] 50 U/L Critically high 15-37 [facility] Comment on above: Performed By: #### B MP #### [facility] [address] [address] [address] Deepak Greenfield Bilirubin [Mass/Vol] 0.3 mg/dL Normal 0.2-1.0 [facility] Comment on above: Performed By: #### B MP #### [facility] [address] [address] [address] Deepak Greenfield Calcium [Mass/Vol] 8.6 mg/dL Normal 8.5-10.1 [facility] Comment on above: Performed By: #### B MP #### [facility] [address] [address] [address] Deepak Greenfield Chloride [Moles/Vol] 106 mmol/L Normal 98-107 [facility] Comment on above: Performed By: #### B MP #### [facility] [address] [address] [address] Deepak Greenfield CO2 [Moles/Vol] 29.9 mmol/L Normal 21.0-32.0 [facility] Comment on above: Performed By: #### B MP #### [facility] [address] [address] [address] Deepak Greenfield Creatinine [Mass/Vol] 0.65 mg/dL Critically low 0.70-1.30 [facility] Comment on above: Performed By: #### B MP #### [facility] [address] [address] [address] Deepak Greenfield EGFR-AF [place] >60 Normal >=60 [facility] Comment on above: Performed By: #### B MP #### [facility] [id number] Deepak Greenfield EGFR-NON AF [place] >60 Normal >=60 [facility] Comment on above: Performed By: #### B MP #### [facility] [address] [address] [address] Deepak Greenfield Globulin (S) [Mass/Vol] 3.7 g/dL Normal [facility] Comment on above: Performed By: #### B MP #### [facility] [address] [address] [address] Deepak Greenfield Glucose [Mass/Vol] 105 mg/dL Normal 74-[address] [facility] Comment on above: Performed By: #### B MP #### [facility] [address] [address] [address] Deepak Greenfield Potassium [Moles/Vol] 4.1 mmol/L Normal 3.5-5.1 [facility] Comment on above: Performed By: #### B MP #### [facility] [address] [place] [address] Dr. Deepak Greenfield Protein [Mass/Vol] 7.0 g/dL Normal 6.4-8.[address] [facility] Comment on above: Performed By: #### B MP #### [facility] [address] [place] [address] Dr. Deepak Greenfield Sodium [Moles/Vol] 142 mmol/L Normal 136-[address] [facility] Comment on above: Performed By: #### B MP #### [facility] [address] [place] [address] Dr. Deepak Greenfield Urea nitrogen [Mass/Vol] 13.0 mg/dL Normal 7.0-18.0 [facility] Comment on above: Performed By: #### B MP #### [facility] [address] [place] [address] Dr. Deepak Greenfield Urea nitrogen/Creatinine [Mass ratio] 20.0 mg/mg Normal [facility] Comment on above: Performed By: #### B MP #### [facility] [address] [place], [place] [id number] Dr. Deepak Greenfield Vital Signs Date Time Vital Sign Value Performing Clinician Facility 12-16-2022 10:18-0400 Blood Pressure Location Arline Levine [facility] 12-16-2022 10:18-0400 Body temperature 98.06 [degF] Arline Lue [facility] 12-16-2022 10:18-0400 Diastolic blood pressure 78 mm[Hg] Arline Lue [facility] 12-16-2022 10:18-0400 Heart rate 84 /min Arline Lue [facility] 12-16-2022 10:18-0400 Systolic blood pressure 128 mm[Hg] Arline Lue [facility] 12-23-2021 11:30-0400 Body height 157.48 cm Antionette Leonel Other [facility] Other 12-23-2021 11:30-0400 Body mass index (BMI) [Ratio] 25.79 kg/m2 Antionette Leonel Other [facility] Other 12-23-2021 11:30-0400 Body temperature 98.5 [degF] Antionette Leonel Other [facility] Other 12-23-2021 11:30-0400 Body weight 63.96 kg Antionette Leonel Other [facility] Other 12-23-2021 11:30-0400 Diastolic blood pressure 70 mm[Hg] Antionette Leonel Other [facility] Other 12-23-2021 11:30-0400 Respiratory rate 20 /min Antionette Leonel Other [facility] Other 12-23-2021 11:30-0400 SaO2% (BldA) [Mass fraction] 99 % Antionette Castaneda Other [facility] Other 12-23-2021 11:30-0400 Systolic blood pressure 120 mm[Hg] Antionette Castaneda Other [facility] Other 10-22-2021 10:29-0400 Blood Pressure Location Arline Lue [facility] 10-22-2021 10:29-0400 Diastolic blood pressure 92 mm[Hg] Arline Lue [facility] 10-22-2021 10:29-0400 Heart rate 100 /min Arline Lue [facility] 10-22-2021 10:29-0400 Respiratory rate 16 /min Arline Lue [facility] 10-22-2021 10:29-0400 Systolic blood pressure 137 mm[Hg] Arline Lue [facility] Encounters Encounter Date Encounter Type Care Provider Facility Start: 01-11-2024 End: 01-11-2024 ambulatory [facility] Work Phone: Start: 01-11-2024 End: 01-11-2024 Patient encounter procedure [facility] Work Phone: Start: 11-07-2023 End: 11-07-2023 Letter encounter Abundio Mares DDS Work Phone: [facility] Start: 08-25-2023 End: 08-25-2023 ambulatory RODRIGUEZ VANG Not Available Start: 07-06-2023 End: 07-06-2023 ambulatory [facility] Work Phone: Start: 07-06-2023 End: 07-06-2023 Patient encounter procedure [facility] Work Phone: Start: 01-05-2023 End: 01-05-2023 ambulatory Antionette Leonel Other [facility] Other Start: 01-05-2023 Office outpatient visit 25 minutes Antionette Leonel [facility] Start: 12-16-2022 End: 12-17-2022 ambulatory Arline Levine Facility:[facility] Start: 12-16-2022 End: 12-16-2022 Patient encounter procedure Arline Levine [facility] Start: 08-04-2022 End: 08-04-[address] FAM VENTURA Facility:[facility] Start: 07-29-2022 End: 08-02-2022 Evaluation and management of inpatient DR FAM VENTURA Facility:[facility] Start: 07-26-2022 End: 07-27-[address] FAM VENTURA Facility:[facility] Start: 07-23-2022 End: 07-24-2022 ambulatory FAM VENTURA Facility[place] Start: 07-23-2022 End: 07-23-2022 Patient encounter procedure FAM VENTURA [facility] Start: 06-23-2022 End: 06-23-2022 ambulatory Antionette Leonel Other [facility] Other Start: 06-23-2022 Office outpatient visit 25 minutes Antionette Leonel [facility] Start: 06-03-2022 End: 06-04-[address] FAM VENTURA Facility:[facility] Start: 05-08-2022 Letter encounter Abundio Mares DDS Work Phone: [facility] Start: 04-22-2022 End: 04-23-[address] FAM VENTURA Facility:H1 Start: 03-19-2022 End: 03-20-[address] FAM VENTURA Facility:[facility]1 Start: 03-10-2022 End: 03-11-[address] FAM VENTURA Facility:[facility] Start: 01-24-2022 End: 01-24-[address] DIAMOND BURGER . Facility:[facility] Start: 01-18-2022 End: 01-18-2022 ambulatory ANJELICA DOLL . Facility:[facility] Start: 01-13-[address] RODRIGUEZ VANG [facility] ty:H1 Start: 01-12-2022 End: 01-13-[address] RODRIGUEZ VANG Facility:[facility]1 Start: 01-06-2022 End: 01-07-[address] FAM VENTURA Facility:[facility] Start: 12-23-2021 End: 12-23-2021 ambulatory Antionette Leonel Other [facility] Other Start: 12-23-2021 Office outpatient visit 25 minutes Antionette Leonel [facility] Start: 12-16-2021 End: 12-17-2021 ambulatory UNKNOWN PROVIDER Facility:[facility] Start: 12-16-2021 End: 12-17-2021 Patient encounter procedure Mora Ulloaaime [facility] Work Phone: [facility] Start: 12-10-2021 End: 12-10-2021 Patient encounter procedure Arline Levine [facility] Start: 11-20-2021 End: 11-21-[address] FAM VENTURA Facility:[facility]1 Start: 11-13-2021 End: 11-14-2021 ambulatory ARLINE LEVINE . Facility:[facility] Start: 10-31-2021 End: 11-01-[address] FAM VENTURA Facility:[facility]1 Start: 10-22-2021 End: 10-22-2021 Patient encounter procedure Arline Levine [facility] Start: 10-21-2021 End: 10-21-[address] [...] (#1) [facility] Start: 02-01-2015 [facility] Start: 05-20-2012 Annual wellness visit [facility] ([id number][facility] Start: 02-01-2007 HPV [...] [facility] Start: 02-01-1995 [facility] Start: 1980 COVID-19 Vaccine (#1) COVID[facility]19 [facility]i ne [facility] Immun[facility] Immunization Date Immunization Notes Care Provider Fa patricety 03-04-2020 pneumococcal conjuga te vaccine, 13 valent Mora Urmetz RDH Work Phone: [facility] 01-26-2018 influenza, injectabl e, quadrivalent, preservative free Mora Urmetz RDH Work Phone: [facility] 01-26-2018 influenza virus vaccine, unspecified formulation Mora Urmetz RDH Work Phone: [facility] 02-10-2017 influenza virus vaccine, unspecified formulation Arline Lue [facility] 02-10-2017 influenza, injectabl e, quadrivalent, contains preservative Mora Urmetz RDH Work Phone: [facility] 02-07-2015 influenza virus vaccine, unspecified formulation Arline Lue [facility] 02-07-2015 influenza, injectabl e, quadrivalent, preservative free Mora Urmetz RDH Work Phone: [facility] 10-23-2014 pneumococcal polysaccharide vaccine, 23 valent Mora Urmetz RDH Work Phone: [facility] 12-31-2010 influenza virus vaccine, unspecified formulation Arline Lue [facility] 12-31-2010 influenza, seasonal, injectable Mora Urmetz RDH Work Phone: [facility] 03-06-2009 novel [id number], preservative-free, injectable Mora Urmetz RDH Work Phone: [facility] 02-09-2008 influenza virus vaccine, whole virus Mora Urmetz RDH Work Phone: [facility] 02-09-2008 influenza, whole Arline Lue [facility] NEGATED: Highlighted row has not occurred!12-10-2021 SARS-CoV-2 mRNA (tozinameran 5y-11y) vaccine Arline Levine [facility] [place] Payers Date Payer Category Payer Medicaid [id number] 2011 Medicare MEDICARE MEDICAR E PART A & B [id number] 2011-Present [address] [place] [address] Medicare [id number] 1980 Unknown [id number] 2.16.840.1.797348.3.579.2.732 1980 Unknown [id number] 2.16.840.1.034865.3.579.2.593 1980 Unknown [id number] 2.16.840.1.689999.3.579.2.593 1980 Unknown [id number] 2.16.840.1.496150.3.579.2.593 1980 Unknown [id number] 2.16.840.1.733640.3.579.2.593 1980 Unknown [id number] 2.16.840.1.370463.3.579.2.727 1980 Unknown [id number] 2.16.840.1.174153.3.579.2.727 1980 Unknown [id number] 2.16.840.1.293919.3.579.2.1259 1959 Medicaid [id number] 1959 Medicare [id number] 2.16.840.1.969628.19 1953 Unknown [id number] 2.16.840.1.457860.3.579.2.593 1953 Unknown [id number] 2.16.840.1.964326.3.579.2.593 1953 Unknown [id number] 2.16.840.1.095730.3.579.2.593 1953 Unknown [id number] 2.16.840.1.070497.3.579.2.593 1953 Unknown [id number] 2.16.840.1.408197.3.579.2.593 1953 Unknown [id number] 2.16.840.1.553206.3.579.2.593 1953 Unknown [id number] 2.16.840.1.501169.3.579.2.593 1953 Unknown [id number] 2.16.840.1.132653.3.579.2.593 1953 Unknown [id number] 2.16.840.1.117021.3.579.2.593 1953 Unknown [id number] 2.16.840.1.372811.3.579.2.593 1953 Unknown [id number] 2.16.840.1.534411.3.579.2.593 1953 Unknown [id number] 2.16.840.1.844053.3.579.2.593 1953 Unknown [id number] 2.16.840.1.441674.3.579.2.593 1953 Unknown [id number] 2.16.840.1.549402.3.579.2.593 Self-pay Self Pay [id number] Social History Date Type Detail Facility Tobacco smoking status No Smoking Status Entered [facility] Sex Assigned At Male [facility] Start: 03-28-2020 Tobacco smoking status NHIS Tobacco smoking consumption unknown [facility] Start: 1980 [facility] Tobacco smoking status No Smoking Status Entered [facility] Start: 12-16-2022 Tobacco smoking status Never smoked tobacco (finding) [facility] Tobacco smoking status Never [facility] Start: 1980 Sex Assigned At Male [facility] Functional Status Date Assessment Result Facility 12-16-2022 Functional Status N/A [facility] 12-10-2021 Functional Status N/A [facility] 10-22-2021 Functional Status N/A [facility] Clinical Notes 10-22-2021 to 01-05-2023 Note Date & Type Note Facility 01-05-2023 Evaluation note Encounter Date Diagnosis Assessment Notes Dec, COPD (chronic obstructive pulmonary disease) (ICD-10 - J44.9) [facility] Other 08-30-2023 Hospital Discharge instructions Patient Education [...] provider. Document Revised: 08/14/2021 Document Reviewed: 08/14/2021 [employer] Patient Education 2022 [employer]. Follow Up Care 12/10/2021 11:51:23 With:Abner BYRNE, JUNIOR Hawk, URO Address: When: Unknown Comments:LENORA [facility] 03-07-2023 Evaluation note* Encounter Date Diagnosis Assessment Notes Treatment Notes Treatment Clinical Notes Jun, COPD (chronic obstructive pulmonary disease) (ICD-10 - J44.9) Continue with respiratory regemin, including VEST therapy, as you currently are doing. Call office with respiratory questions or concerns. [facility] Other 09-06-2022 Evaluation note* Encounter Date Diagnosis Assessment Notes Treatment Notes Treatment Clinical Notes Dec, COPD (chronic obstructive pulmonary disease) (ICD-10 - J44.9) Continue with VEST therapy twice a day. Ok to increase to TID if needed. [facility] Other 08-30-2022 NotePt presented today for OR evaluation. Limited eval was completed. Pt's case is not urgent updated contact information and placed Pt on OR list. Step by step process for OR flyer was given to caregiver. Please wait for phone call from OR coordinator.[employer] [id number] Instructions* Patient Instructions * Mora Powell RDH - 12/16/2021 11:57 AM EDT Pt presented today for OR evaluation. Limited eval was completed. Pt's case is not urgent updated contact information and placed Pt on OR list. Step by step process for OR flyer was given to caregiver. Please wait for phone call from OR coordinator. documented in this [id number] History of Present illness Narrative* Mora Powell RDH - 12/16/2021 11:42 AM EDT ----- Thursday, December 16, 2021 at 12:03:50 PM ----- ----- Provider: [id number] Heriberto Powell Hygienist -- Clinic: [place] ----- [facility], Pt is ready for tx. Pt presented for dental evaluation for future OR. Caregiver in the room. Patient is non-verbal. Severe intellectual disability, seizure disorder Caregiver stated patient is not pain and no complaining. Radiograph taken today: no possible due to patient behavior Case requested for OR. Guardian mother Katia Lopez. [phone]. [facility] [phone] [id number] [id number] ( [facility] pt's appt) AVS printed and handed flyer for step by step instruction of OR process to Caregiver exam By: Elliott Ham RD [place]. OR ----- Signed on Thursday, December 16, 2021 at 12:18:18 PM ----- ----- Provider: [id number] - Ap Adams DDS -- Clinic: [place] ----- documented in this [id number] Hospital Discharge instructions Patient Education 12/10/2021 11:47:35 [...] nerve stimulation). For women, using a medical device sales representative to prevent urine leaks. This is [...] right after experiencing incontinence. General instructions Take yhvi-yfa-zxkyoqr and prescription medicines only as told by [...] 05/13/2005 Document Revised: 04/15/2018 Document Reviewed: 07/15/2017 [employer] Patient Education 2020 [employer]. Follow Up Care 10/22/2021 11:38:20 With:Abner BYRNE, JUNIOR Hawk, URO Address: When:1 year Comments:W/ renal US [facility] 07-06-2022 Hospital Discharge instructions Patient Education [...] nerve stimulation). For women, using a medical device sales representative to prevent urine leaks. This is [...] right after experiencing incontinence. General instructions Take bglv-ttt-thyhowx and prescription medicines only as told by [...] 05/13/2005 Document Revised: 04/15/2018 Document Reviewed: 07/15/2017 [employer] Patient Education 2020 [employer]. 10/22/2021 11:42:30 Renal Mass Renal Mass A [...] provider gives to you. In general: Take plsl-hvl-yxinltw and prescription medicines only as told by [...] 10/31/2014 Document Revised: 05/12/2018 Document Reviewed: 05/12/2018 [employer] Patient Education [employer]. Follow Up Care 09/22/2021 14:10:46 With:Arline Levine MD, UR, URO Address: When:1 month [facility] evaluation + Plan note Future Appointments Appointment Date:11/19/2021 10:00:00 AM Scheduled Provider:Arline Levine MD Location:[facility] Appointment Type:URO Office Visit [facility] evaluation + Plan note Future Appointments Appointment Date:12/16/2022 10:15:00 AM Scheduled Provider:Arline Levine MD Location:[facility] Appointment Type:URO Office Visit [facility] evaluation note* Diagnosis Onset Date Resolution Status COPD (chronic obstructive pulmonary disease) acute Severe intellectual disability [facility] Work Phone: History general Narrative - Reported* Type Description Date Medical History Mental retardation Medical History Seizure Disorder Medical History Tristen Syndrome Medical History ADD Medical History Hypothyroidism Medical History Spastic Quadraparesis Medical History Osteoporosis Medical History Tristen-Beuren syndrome Medical History Seizure disorder Medical History Seizure disorder Medical History COPD Surgical History VNS REPLACED 2021 [facility] Other Hospital course Narrative No data available for this section [facility] Hospital Discharge instructions No data available for this section [facility] No data available for this section [facility] Summary Purpose Family History No Family [...] Care Team (unrecognized sect ion and content) Film Projector Operator Relationship Specialty Start Date End Date Abundio Mares DDS [address] [place] [id number] Resident Dentistry 02/23/20 Film Projector Operator Relationship Specialty Start Date End Date Abundio Mares DDS [address] [place] [address] Resident Dentistry 02/23/20 Team Status: Active Member Role Status Dates Fam Ventura DO Primary Care Provider Active Team Status: Inactive Member Role Status Dates Fam Ventura DO Primary Care Provider Active Start: July 06, 2023 End: July 06, 2023 Antionette Castaneda [facility] Active Start: July 06, 2023 End: July 06, 2023 Film Projector Operator Relationship Specialty Start Date End Date Abundio Mares [address] [place] [address] Resident Dentistry 02/23/20 Team Status: Inactive Member Role Status Dates Fam A Ventura , DO Primary Care Provider Active Start: January 11, 2024 End: January 11, 2024 Antionette Castaneda APRN ACNP-BC Attending Provider Active Start: January 11, 2024 End: January 11, 2024 [facility] Active Start: atul 2023 End: January 11, 2024 (unrecognized sect ion and content) No Status Records FoundNo Status Records FoundNo Status Records FoundNo Status Records Found INFORMATION SOURCE (unrecogn ized section and content) DATE CREATED AUTHOR 12/18/2021 [employer] DATE CREATED AUTHOR AUTHOR'S ORGANIZ ATION 08/05/2022 [facility] DATE CREATED AUTHOR AUTHOR'S ORGANIZ ATION 01/26/2023 [facility] DATE CREATED AUTHOR AUTHOR'S ORGANIZ ATION 08/27/2023 [facility] EPIC REASON FOR VISIT (unrecogniz [...] BE BASED ON THE PRIMARY CLINICAL RECORDS. [employer] provides no warranty or guarantee of the accuracy or completeness of information in this document.
[2024-02-29 10:07] LABS: Ammonia 40 umol/L (11-32)
== END 2024-02-29 09:43 | disposition home or self-care (01) ==
LOC: LAB 09:43
PROVIDERS: PCP Family Medicine; Visit Provider Family Medicine
DX: K76.82 Hepatic encephalopathy (principal); Z79.899 Other long term (current) drug therapy; G40.909 Epilepsy, unspecified, not intractable, without status epilepticus
CPT/HCPCS: 36415; 82140

== ENCOUNTER 2024-03-24 10:41 | Outpatient (REF) | payer MEDICARE, MEDICAID, SELFPAY ==
--- OUTSIDE RECORDS SUMMARY | 2024-03-21 14:59 | XMS_ITS | CCD ---
Author Organization [facility] Care Team Providers Care 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 Name Role Phone FAM VENTURA Primary [...] Unavailable VENTURA, DR FAM Duran Attending Unavailable VENUTRA, DR FAM Duran Admitting Unavailable VENTURA, DR [...] NADERER, DR CHELE Duran Consulting Unavailable ALICE ., IDRIS FERNANDES Consulting Unavailsusan BURGER ., DR FIELDS Consulting Unavailable MALKA PEREZ Consulting Unavailable RILEY, SOPHIA Consulting Unavailable JBARAGURJIT Consulting Unavailable VENTURA, DR FAM Duran Primary Care Unavailable NADERER, DR CHELE Duran Consulting Unavailable NADERER, DR CHELE Duran Attending Unavailable NADERER, DR CHELE Duran Admitting Unavailable ANICETO GARCIA Consulting Unavailable DIAB ., EMIL Consulting Unavailable RASHEL, DR FRIAS Admitting Unavailable RASHEL, DR FRIAS Attending Unavailable VENTURA, DR FAM Duran Primary Care Unavailable VENTURA, DR FAM Duran Consulting Unavailable RASHEL, DR FRIAS Consulting Unavailable VENTURA, DR FAM Duran Admitting Unavailable VENTURA, DR FAM Duran Primary Care Unavailable VENTURA, DR FAM Duran Consulting Unavailable VENTURA, DR FAM Duran Attending Unavailable KlipperAniceto Consulting Unavailable RASHEL, DR FRIAS Attending Unavailable VENTURA, DR FAM Duran Primary Care Unavailable RASHEL, DR FRIAS Admitting Unavailable VENTURA, DR FAM [...] FAM Duran Consulting Unavailable DANIELABBI Consulting Unavailable DANIEL, ABBI Attending Unavailable DANIEL, [...] Unavailable HAY ., DR FIELDS Consulting Unavailable JENNYFER ., DR FIELDS Attending Unavailable VENTURA, DR FAM Duran Primary Care Unavailable HAY ., DR FIELDS Admitting Unavailable Klipper, Aniceto Consulting Unavailable LuArline jones Attending Unavailable VENTURA, FAM Referring Unavailable VENTURA, FAM Attending Unavailable VENTURA, FAM Admitting Unavailable Abundio Mares DDS Unavailable Fam Ventura MD Unavailable [phone] Unallocated , [place] Provider Primary Care Diamante fajardo RODRIGUEZ VANG Attending Unavailable RODRIGUEZ VANG Attending Unavailable Allergies Allergy Classification Reported Allergen(s) Allergy Type Date of Onset Reaction(s) Facility (8 sources) Amoxicillin / Clavulanate; Translations: [amoxicillin-clav ulanate] Drug Allergy Unknown [facility] (13 sources) Phenytoin; Translations: [phenytoin] Drug Allergy 3 Unknown [facility] (17 sources) Promethazine; Translations: [promethazine] Drug Allergy 7 Unknown [facility] (7 sources) Phenytoin; Translations: [PHENYTOIN SODIUM EXTENDED] Drug Allergy 7 [facility] (7 sources) AMOXICILLIN-POT CLAVULANATE; Translations: [AMOXICILLIN-POT CLAVULANATE] Propensity to adverse reactions to drug (disorder) 7 Unknown [facility] Repository (1 source) 4-Aminobenzoic Acid Drug Allergy [facility] Repository (1 source) Amoxicillin / Clavulanate Drug Allergy 4 [facility] Repository (1 source) Levamisole Drug Allergy 4 [facility] Repository (1 source) metroNIDAZOLE Drug Allergy [facility] Repository (1 source) Phenytoin Drug Allergy 4 [facility] Repository (1 source) remdesivir (investigational use) Drug allergy (disorder) [facility] Repository (5 sources) Amoxicillin Drug Allergy [address] [facility] (4 sources) Clavulanate Drug Allergy [address] [facility] Medications Current Medications Medication Drug Class(es) Dates Sig (Normalized) Sig (Original) Acetaminophen (8 sources) Start: 12-16-2022 acetaminophen Refills(s) 0 Start Date: 12/16/22 Status: Ordered Start: 03-28-2020 Acetaminophen Active 650 MG VT EVERY 4-6 HOURS March 28, 2020 1:00am [...] Active alendronic acid 70 mg oral tablet (15 sources) Bisphosphonate Start: 07-04-2015 take 70 mg by mouth every week Alendronate Active 70 MG PO every week March 28, 2020 1:00am Start: 07-04-2015 alendronate Ta b 70 mg, Oral, Wednesday, Refills(s) 0, Other (see comment) Start Date: 07/04/15 Status: Ordered take 1 tablet by rebecca th once daily alendronate (Fosamax) 70 MG tablet 1 tablet 30 minutes before the first food, beverage or medicine of the day with plain water Orally Active Allergy Relief (4 sources) Start: 07-04-2015 take [...] day Active atorvastatin 10 mg oral tablet (15 sources) HMG-CoA Reductase Inhibitor Start: 07-04-2015 take [...] 2020 1:00am take 1 capsule by mo nmh every eight hours Benzonatate 100 MG 1 capsule as needed Orally Three times a day Active budesonide 0.25 mg/ml inhalation suspension (9 sources) Corticosteroid Start: 06-28-2023 take 0.5 mg [...] mg / cholecalciferol 200 unt oral tablet (6 sources) Vitamin D Start: 03-28-2020 take 1 tablet by mouth twice daily Calcium Carbonate-Vitamin D3 (Oyster Shell Calcium-Vit D3) 500 mg(1,250mg) -200 unit Tablet Active 1 TAB PO Twice daily March 28, 2020 1:00am take 1 tablet by rebecca th in the morning, then take 1 tablet by mouth once in the evening Calcium Carb-Cholecalciferol (Oyster She ll Calcium w/D) 500-5 MG-MCG tablet Take 1 tablet by mouth in the morning and 1 tablet in the evening. Active take 1 tablet by rebecca th every twenty-four hours Oyster Shell Calcium + D 500-200 MG-UNIT 1 tablet with food Orally Once a day Active clindamycin 300 mg oral capsule (3 sources) Lincosamide Antibacterial Start: 02-29-2020 take 1 capsule by mouth three times daily clindamycin (CLEOCIN) 300 MG capsule TAKE 1 CAPSULE BY MOUTH 3 TIMES DAILY FOR 7 DAYS. 21 Capsule 02/29/2020 Active cloBAZam 10 mg oral tablet (15 sources) Benzodiazepine Start: 07-04-2015 take 10 mg [...] 10:24am 10MG RECTAL GEL, PATIENT TAKES IT VT - wont let me save without route. Start: 07-05-2015 diazepam 10 mg , Rectal, PRN Seizure, Refills(s) 0 Start Date: 07/05/15 Status: Ordered docusate sodium 100 mg oral capsule (12 sources) Start: 10-22-2021 take 1 capsule by mo [facility] twice daily as needed for constipation docusate sodium 100 mg Cap 100 mg = 1 cap(s), Oral, BID, PRN for constipation, # 20 cap(s), Refills(s) 0 Start Date: 10/22/21 Status: Ordered Start: 03-28-2020 take 200 mg by mouth once daily in the morning Docusate Sodium Active 200 MG PO Every morning March 28, 2020 1:00am [facility]-four hours Docusate Sodium 100 [...] Status: Ordered felbamate 400 mg oral tablet (15 sources) Anti-epileptic Agent Start: 02-23-2020 take 400 mg by mouth three times daily Felbamate Active 400 MG PO Three times daily March 28, 2020 1:00am felbamate (Felba ela) 400 MG tablet 1 (one) time each day at the same time Active fenofibrate 145 mg oral tablet (7 sources) Peroxisome Proliferator Receptor alpha Agonist Start: 10-22-2021 take 1 mg by mouth once daily fenofibrate 145 mg Tab mg tab(s), Oral, Daily, Refills(s) 0 Start Date: 10/22/21 Status: Ordered fluticasone furoate 0.05 MG/ACTUAT Dry Powder Inhaler (15 sources) Corticosteroid Start: 10-22-2021 fluticasone furoate 50 mcg inhalation powder Inhalation, q24hr, Refills(s) 0 Start Date: 10/22/21 Status: Ordered Start: 03-28-2020 Fluticasone Pr opionate Active 2 SPRAY INTRANASAL Daily March 28, 2020 1:00am Start: 02-26-2020 fluticasone (F LONASE) 50 mcg/act nasal inhaler 02/26/2020 Active take 2 spray(s) nasa l route once daily fluticasone (Flonase) 50 MCG/ACT nasal spray USE 2 SPRAYS IN EACH NOSTRIL ONCE DAILY FLONASE Active take 1 spray(s) nasa l route once daily Fluticasone Propionate 50 MCG/ACT 1 spray in each nostril Nasally Once a day Active furosemide 20 mg oral tablet (15 sources) Loop Diuretic Start: 02-23-2020 take 20 mg by mouth once daily Furosemide Active 20 MG PO Daily March 28, 2020 1:00am glycopyrrolate 1 mg oral tablet (12 sources) Start: 10-22-2021 take 1 tablet by [...] 2020 1:00am lactulose 667 mg/ml oral solution (18 sources) Osmotic Laxative Start: 10-22-2021 Enulose 10 [...] day Active levETIRAcetam 750 mg oral tablet (15 sources) Start: 03-28-2020 take 1500 mg by mouth twice daily Levetiracetam Active 1500 MG PO Twice daily March 28, 2020 1:00am Start: 07-04-2015 levetiracetam (KEPPRA) 750 MG tablet 02/23/2020 Active take 2 tablets by mo uth in the morning, then take 3 tablets by mouth at bedtime levETIRAcetam 500 mg 2 tablet in am and 3 tabs at hs Orally As Directed Active levothyroxine sodium 0.1 mg oral tablet (20 sources) l-Thyroxine Start: 06-28-2023 take 150 ug by mouth once daily Levothyroxine Active 150 MCG PO Daily June 28, 2023 1:10pm Start: 11-10-2022 levothyroxine (Synthroid, Levoxyl) 150 MCG tablet 11/10/2022 Active Start: 02-23-2020 End: 06-28-2023 take 100 ug [...] Status: Ordered take 1 tablet by [facility] every twenty-four hours Levothyroxine Sodium 150 MCG 1 tablet Orally Once a day Active linaclotide 0.145 mg oral capsule (16 sources) Guanylate Cyclase-C Agonist Start: 12-16-2022 Linzess 145 mcg oral capsule Start Date: 12/16/22 Status: Ordered Start: 02-23-2020 take 1 capsule by [facility] once daily in the morning Linaclotide [...] 12:00am magnesium oxide 400 mg oral tablet (9 sources) Start: 03-28-2020 magnesium oxid e 400 [...] Ordered Normal saline (7 sources) Start: 07-05-2015 Hodge Saline Alpa al Gel Nasal, TID, Refill(s) 0, Dry nasal passages Start Date: 07/05/15 Status: Ordered Hodge Saline Nasal Gel Nasally Active omeprazole 40 mg delayed release oral capsule (15 sources) Proton Pump Inhibitor Start: 02-23-2020 take 40 mg by mouth once daily Omeprazole Active 40 MG PO Daily March 28, 2020 1:00am OXcarbazepine 600 mg oral tablet (20 sources) Anti-epileptic Agent Start: 06-28-2023 take 300 mg by mouth twice daily Oxcarbazepine Active 300 MG PO Twice daily June 28, 2023 1:14pm Start: 02-23-2020 End: 06-28-2023 take 600 mg by mouth twice daily Oxcarbazepine Discontinued 600 MG PO Twice daily March 28, 2020 1:00am June 28, 2023 1:21pm Start: 02-23-2020 End: 06-28-2023 take 300 mg [...] bid, Prophylaxis Start Date: 07/05/15 Status: Ordered [id number] oral powder for reconstitution (1 source) Start: [id number] oral powder for reconstitution Start Date: 12/16/22 Status: Ordered polyethylene glycol 3350 18665 mg powder for oral solution (4 sources) [...] 0 Start Date: 10/22/21 Status: Ordered sennosides, retirement 8.6 mg oral tablet (2 sources) Start: 020 take 2 tablets by mouth twice daily Sennosides (Senna) 8.6 mg Tablet Active 17.2 MG PO Twice daily March 28, 2020 1:00am sertraline 25 mg oral tablet (5 sources) Serotonin Reuptake Inhibitor Start: take 25 mg by mouth once daily Sertraline Active 25 MG PO Daily June 28, 2023 12:00am take 1 tablet by rebecca th every twenty-four hours Sertraline HCl 25 MG 1 tablet Orally Onc e a day Active Sodium Chloride-Aloe Vera (Hodge Saline) gel (2 sources) Start: 06-28-2023 Sodium Chlorid e-Aloe Vera (Hodge Saline) gel Active 1 APPLIC TOPICAL Daily at bedtime June 28, 2023 12:00am tamsulosin hydrochloride 0.4 mg oral capsule (9 sources) alpha-Adrenergi c Rachelle Start: 07-04-2015 take 0.4 mg by mouth once daily Tamsulosin Active 0.4 MG PO Daily March 28, 2020 1:00am Vitamin D3 5000 intl units oral capsule (1 source) Start: 12-16-2022 Vitamin D3 [...] Onset: 12-23-2021 Resolved: 12-23-2021 Chronic Developmental disorders (17 sources) Severe intellectual disability; Translations: [Mental handicap] Onset: 02-22-2020 06-30-2013 Chronic Disorders of lipid metabolism (1 source) Hyperlipidemia, unspecified; Translations: [HYPERLIPIDEMIA UNSPECIFIED] Onset: 08-05-2022 Chronic E Codes: Adverse effects of medical drugs (1 source) Adverse effect of other antiepileptic and sedative-hypnotic drugs, initial encounter; Translations: [ADVRS EFF OTH ANTIEPI SED RX INIT] Onset: 08-05-2022 Episodic Epilepsy; convulsions (17 sources) Epilepsy, unspecified, not intractable, without status epilepticus; Translations: [Seizure disorder] Onset: 04-22-2022 Chronic Esophageal disorders (3 sources) Gastro-esophageal reflux disease [...] Episodic Mycoses (4 sources) Onychomycosis 06-30-2013 Episodic Nephritis; nephrosis; renal sclerosis (3 sources) 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; Translations: [Nephritis and nephropathy, not specified as acute or chronic, with unspecified pathological lesion in kidney] Onset: 08-23-2023 08-23-2023 Chronic Nutritional deficiencies (1 source) Vitamin D deficiency, unspecified; Translations: [VITAMIN D DEFICIENCY UNSPECIFIED] Onset: 04-01-2022 Chronic Osteoporosis (9 sources) Osteoporosis; Translations: [Age-related osteoporosis without current pathological fracture] Onset: 11-20-2021 06-30-2013 Chronic Other aftercare (5 sources) Other correction (current) drug therapy; Translations: [OTH CLINICAL MENTAL HEALTH COUNSELOR CURRENT DRUG THERAPY] Onset: 06-03-2022 Episodic Other congenital anomalies (1 source) Tristen syndrome; 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] Onset: 08-05-2022 Chronic Other diseases of [...] Translations: [Chronic sinusitis, unspecified] 07-06-2023 Chronic Paralysis (13 sources) Tetraplegia; Translations: [Quadriplegia, unspecified] Onset: 09-23-2021 [...] COMPLICATIONS PROC NEC INITIAL] Onset: 09-29-2021 Episodic Epilepsy; convulsions (11 sources) Seizure disorder; Translations: [Unspecified convulsions] Onset: 01-18-2022 06-30-2013 Episodic Epilepsy; convulsions (2 sources) Epilepsy; convulsions 03-13-2024 Fever of unknown origin (4 sources) Fever, [...] Test Name Value Interpretation Reference Range Facility No Panel Informationon 03-13 As in note [facility] e Ambulatory Visit Summaryon 0 12-16-2022 Ambulatory Visit Summary [facility] LOPEZ Francisco :1980 Visit Date:12/16/2022 Ambulatory Visit Instructions Your [...] (oxcarbazepine 600 mg Tab) polyethylene glycol 3350 ([id number] oral powder for reconstitution) polyethylene glycol 3350 (polyethylene glycol 3350 17 gram packet) rifaximin (Xifaxan 550 mg oral tablet) senna (Senna 8.6 mg oral tablet) sodium chloride nasal (Hodge Saline Nasal Gel) tamsulosin Discharge Vitals Temperature [...] Application T (more content not included)... Normal [facility] Patient Educationon 12-17-19 23 Patient Education [...] provider. Document Revised: 08/14/2021 Document Reviewed: 08/14/2021 [employer] Patient Education ? 2022 [employer]. [facility] Physician Orderon 12-16-2022 Physician Order [id number] .[id number]:127 Normal [facility] RAD - Ultrasound Reporton RAD - Ultrasound Report [id number] .[id number]:127 Normal [facility] Urology Office/Clinic Noteon 12-16-2022 Urology Office/Clinic [...] of retractile testes. Pt currently resides in [facility]. CBC/CMP 08/01/22 1. 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 Levine on 12/16/2022 [...] Eye-Both, QID atorvastatin, 10 mg, Oral, Daily Hodge Saline Nasal Gel, Nasal, TID azelastine nasal 137 mcg/inh spray, 2 spray(s), Nasal, As (more content not included)... Normal [facility] Comment on above: Result Comment: Elec tronically Signed By: Arline Levine MD\.br\Date and Time Signed: 12/16/22 20:02 EDT\.br\Electronically Co-Signed By: Makayla Todd.br\Date and Time Co-Signed: 12/16/22 11:27 EDT XR [...] or cardiac decompensation. Electronically authenticated by: GUANAKITO MAEDE Date: 2022-08-04 18:50 Normal [facility] AMMONIAon 08-02-2022 Ammonia (P) [Moles/Vol] 87 umol/L Critically high 11-32 [facility] Comment on above: Performed By: #### B MP #### [facility] [address] [place] [address] Dr. Deepak Greenfield AMMONIAon 08-01-2022 Ammonia (P) [Moles/Vol] 42 umol/L Critically high 11-32 [facility] Comment on above: Performed By: #### Karishma House, CMP #### [facility] [address] [place] [address] Dr. Deepak Greenfield CBC W MANUAL DIFFon 08-02-19 23 ATYPICAL LYMPH # 0.41 103/ul Normal [facility] Comment on above: Performed By: #### M Lacy, CMP #### [facility] [address] [place] [address] Dr. Deepak Greenfield ATYPICAL LYMPH % 7 % Normal [facility] Comment on above: Performed By: #### Karishma House, CMP #### [facility] [address] [place] [address] Dr. Deepak Greenfield BAND # 0.0 103/ul Normal 0.0-0.3 [facility] Comment on above: Performed By: #### Karishma House, CMP #### [facility] [address] [place] [address] Dr. Deepak Greenfield BAND % 0 % Normal 0-5 [facility] Comment on above: Performed By: #### Karishma House, CMP #### [facility] [address] [place] [address] Dr. Deepak Greenfield BASOM # 0.00 103/ul Normal 0.00-0.10 [facility] Comment on above: Performed By: #### Karishma House, CMP #### [facility] [address] [place] [address] Dr. Deepak Greenfield BASOM % 0.0 % Critically low 0.2-2.0 [facility] Comment on above: Performed By: #### Karishma House, CMP #### [facility] [address] [place] [address] Dr. Deepak Greenfield BLAST # Normal [facility] Comment on above: Performed By: #### M Lacy, CMP #### [facility] [address] [place] [address] Dr. Deepak Greenfield BLAST % Normal [facility] Comment on above: Performed By: #### M G, CMP #### [facility] [address] [address] [address] Deepak Greenfield CORRECTED WBC Normal 4.0-11.[address] [facility] Comment on above: Performed By: #### M G, CMP #### [facility] [address] [address] [address] Deepak Greenfield EOS # 0.06 103/ul Normal 0.00-0.70 [facility] Comment on above: Performed By: #### M G, CMP #### [facility] [address] [address] [address] Deepak Greenfield EOS% 1.0 % Normal 0.9-7.0 [facility] Comment on above: Performed By: #### M G, CMP #### [facility] [address] [place] [address] Dr. Deepak Greenfield HCT 37.6 % Critically low 42.0-54.0 [facility] Comment on above: Performed By: #### M G, CMP #### [facility] [address] [place] [address] Dr. Deepak Greenfield HGB 12.3 g/dl Critically low 14.0-18.0 [facility] Comment on above: Performed By: #### M G, CMP #### [facility] [address] [place] [address] Dr. Deepak Greenfield LYMPHM # 1.91 103/ul Normal 1.20-3.80 [facility] Comment on above: Performed By: #### M G, CMP #### [facility] [address] [place] [address] Dr. Deepak Greenfield LYMPHM% 33.0 % Normal 20.5-60.0 [facility] Comment on above: Performed By: #### M G, CMP #### [facility] [address] [place] [address] Dr. Deepak Greenfield MCH 31.7 pg Normal 25.9-34.0 [facility] Comment on above: Performed By: #### M G, CMP #### [facility] [address] [place] [address] Dr. Deepak Greenfield MCHC 32.7 g/dl Normal 29.9-35.2 [facility] Comment on above: Performed By: #### M G, CMP #### [facility] [address] [place] [address] Dr. Deepak Greenfield MCV 96.9 fL Critically high 80.0-94.0 [facility] Comment on above: Performed By: #### M G, CMP #### [facility] [address] [place] [address] Dr. Deepak Greenfield METAMYELOCYTE # Normal [facility] Comment on above: Performed By: #### M G, CMP #### [facility] [address] [place] [address] Dr. Deepak Greenfield METAMYELOCYTE % Normal [facility] Comment on above: Performed By: #### M G, CMP #### [facility] [address] [place] [address] Dr. Deepak Greenfield MONOM# 0.29 103/ul Critically low 0.30-0.80 [facility] Comment on above: Performed By: #### M G, CMP #### [facility] [address] [place] [address] Dr. Deepak Greenfield MONOM% 5.0 % Normal 1.7-12.0 [facility] Comment on above: Performed By: #### M G, CMP #### [facility] [address] [place] [address] Dr. Deepak Greenfield MPV 11.0 fL Normal 9.5-13.5 [facility] Comment on above: Performed By: #### M G, CMP #### [facility] [address] [place] [address] Dr. Deepak Greenfield MYELOCYTE # Normal [facility] Comment on above: Performed By: #### M G, CMP #### [facility] [address] [place] [address] Dr. Deepak Greenfield MYELOCYTE % Normal [facility] Comment on above: Performed By: #### M G, CMP #### [facility] [address] [address] [address] Deepak Greenfield NRBC Normal [facility] Comment on above: Performed By: #### M G, CMP #### [facility] [address] [address] [address] Deepak Greenfield PLT 208 103/ul Normal 150-450 [facility] Comment on above: Performed By: #### M G, CMP #### [facility] [address] [address] [address] Deepak Greenfield RBC 3.88 106/ul Critically low 4.70-6.10 [facility] Comment on above: Performed By: #### M G, CMP #### [facility] [address] [place] [address] Dr. Deepak Greenfield RDW 12.9 % Normal 11.0-15.0 [facility] Comment on above: Performed By: #### M G, CMP #### [facility] [address] [place] [address] Dr. Deepak Greenfield SEG # 3.13 103/ul Normal 1.40-6.50 [facility] Comment on above: Performed By: #### M G, CMP #### [facility] [address] [place] [address] Dr. Deepak Greenfield SEG % 54.0 % Normal 43.0-75.0 [facility] Comment on above: Performed By: #### M G, CMP #### [facility] [address] [place] [address] Dr. Deepak Greenfield STOMATOCYTES 3+ Normal [facility] Comment on above: Performed By: #### M G, CMP #### [facility] [address] [address] [address] Deepak Greenfield WBC 5.8 103/ul Normal 4.0-11.0 [facility] Comment on above: Performed By: #### M G, CMP #### [facility] [address] [place] [address] Dr. Deepak Greenfield PROF CHEM 8 (BAS METB)on Anion gap [Moles/Vol] 16.1 mmol/L Normal [facility] Comment on above: Performed By: #### B MP #### [facility] [address] [address] [address] Deepak Greenfield Calcium [Mass/Vol] 9.3 mg/dL Normal 8.5-10.1 [facility] Comment on above: Performed By: #### B MP #### [facility] [address] [address] [address] Deepak Greenfield Chloride [Moles/Vol] 105 mmol/L Normal 98-107 [facility] Comment on above: Performed By: #### B MP #### [facility] [address] [address] [address] Deepak Greenfield CO2 [Moles/Vol] 27.6 mmol/L Normal 21.0-32.0 [facility] Comment on above: Performed By: #### B MP #### [facility] [address] [place] [address] Dr. Deepak Greenfield Creatinine [Mass/Vol] 0.96 mg/dL Normal 0.70-1.30 [facility] Comment on above: Performed By: #### B MP #### [facility] [address] [address] [address] Deepak Greenfield EGFR-AF UGANDAN >60 Normal >=60 [facility] Comment on above: Performed By: #### B MP #### [facility] [address] [address] [address] Deepak Greenfield EGFR-NON AF UGANDAN >60 Normal >=60 [facility] Comment on above: Performed By: #### B MP #### [facility] [address] [address] [address] Deepak Greenfield Glucose [Mass/Vol] 160 mg/dL Critically high 74-106 [facility] Comment on above: Performed By: #### B MP #### [facility] [address] [address] [address] Deepak Greenfield Potassium [Moles/Vol] 3.7 mmol/L Normal 3.5-5.1 [facility] Comment on above: Performed By: #### B MP #### [facility] [address] [address] [address] Deepak Greenfield Sodium [Moles/Vol] 145 mmol/L Normal 136-145 [facility] Comment on above: Performed By: #### B MP #### [facility] [address] [place] [address] Dr. Deepak Greenfield Urea nitrogen [Mass/Vol] 5.0 mg/dL Critically low 7.0-18.0 [facility] Comment on above: Performed By: #### B MP #### [facility] [address] [place] [address] Dr. Deepak Greenfield Urea nitrogen/Creatinine [Mass ratio] 5.2 mg/mg Normal [facility] Comment on above: Performed By: #### B MP #### [facility] [address] [place] [address] Dr. Deepak Greenfield AMMONIAon 07-31-2022 Ammonia (P) [Moles/Vol] 94 umol/L Critically high 11-32 [facility] Comment on above: Performed By: #### M G, CMP #### [facility] [address] [place] [address] Dr. Deepak Greenfield CBC AUTO DIFFon 07-31-2022 BASO # 0.0 103/ul Normal 0.0-0.1 [facility] Comment on above: Performed By: #### B MP #### [facility] [address] [place] [address] Dr. Deepak Greenfield Basophils/100 WBC (Bld) 0.1 % Critically low 0.2-2.0 [facility] Comment on above: Performed By: #### B MP #### [facility] [address] [place] [address] Dr. Deepak Greenfield EO # 0.0 103/ul Normal 0.0-0.7 [facility] Comment on above: Performed By: #### B MP #### [facility] [address] [place] [address] Dr. Deepak Greenfield Eosinophils/100 WBC (Bld) 0.0 % Critically low 0.9-7.0 [facility] Comment on above: Performed By: #### B MP #### [facility] [address] [place] [address] Dr. Deepak Greenfield Erythrocyte distribution width (RBC) [Ratio] 13.1 % Normal 11.0-15.0 [facility] Comment on above: Performed By: #### B MP #### [facility] [address] [place] [address] Dr. Deepak Greenfield Hematocrit (Bld) [Volume fraction] 32.4 % Critically low 42.0-54.0 [facility] Comment on above: Performed By: #### B MP #### [facility] [address] [place] [address] Dr. Deepak Greenfield Hemoglobin (Bld) [Mass/Vol] 10.9 g/dL Critically low 14.0-18.0 [facility] Comment on above: Performed By: #### B MP #### [facility] [address] [place] [address] Dr. Deepak Greenfield IG # 0.02 10e3/ul Normal 0.00-0.03 [facility] Comment on above: Performed By: #### B MP #### [facility] [address] [place] [address] Dr. Deepak Greenfield IG % 0.3 % Normal 0.0-0.5 [facility] Comment on above: Performed By: #### B MP #### [facility] [address] [place] [address] Dr. Deepak Greenfield LYMPH # 2.7 103/ul Normal 1.2-3.8 [facility] Comment on above: Performed By: #### B MP #### [facility] [address] [place] [address] Dr. Deepak Greenfield Lymphocytes/100 WBC (Bld) 38.9 % Normal 20.5-60.0 [facility] Comment on above: Performed By: #### B MP #### [facility] [address] [place] [address] Dr. Deepak Greenfield MANUAL DIFF REQ NO Normal [facility] Comment on above: Performed By: #### B MP #### [facility] [address] [place] [address] Dr. Deepak Greenfield MCH (RBC) [Entitic mass] 32.3 pg Normal 25.9-34.0 [facility] Comment on above: Performed By: #### B MP #### [facility] [address] [place] [address] Dr. Deepak Greenfield MCHC (RBC) [Mass/Vol] 33.6 g/dL Normal 29.9-35.2 [facility] Comment on above: Performed By: #### B MP #### [facility] [address] [place] [address] Dr. Deepak Greenfield MCV (RBC) [Entitic vol] 96.1 fL Critically high 80.0-94.0 [facility] Comment on above: Performed By: #### B MP #### [facility] [address] [place] [address] Dr. Deepak Greenfield MONO # 0.3 103/ul Normal 0.3-0.8 [facility] Comment on above: Performed By: #### B MP #### [facility] [address] [place] [address] Dr. Deepak Greenfield Monocytes/100 WBC (Bld) 4.9 % Normal 1.7-12.0 [facility] Comment on above: Performed By: #### B MP #### [facility] [address] [place] [address] Dr. Deepak Greenfield NEUT # 3.9 103/ul Normal 1.4-6.5 [facility] Comment on above: Performed By: #### B MP #### [facility] [address] [place] [address] Dr. Deepak Greenfield Neutrophils/100 WBC (Bld) 55.8 % Normal 43.0-75.0 [facility] Comment on above: Performed By: #### B MP #### [facility] [address] [place] [address] Dr. Deepak Greenfield Platelet mean volume (Bld) [Entitic vol] 9.7 fL Normal 9.5-13.5 [facility] Comment on above: Performed By: #### B MP #### [facility] [address] [address] [address] Deepak Greenfield PLT 296 103/ul Normal 150-450 [facility] Comment on above: Performed By: #### B MP #### [facility] [address] [address] [address] Deepak Greenfield RBC 3.37 106/ul Critically low 4.70-6.10 [facility] Comment on above: Performed By: #### B MP #### [facility] [address] [address] [address] Deepak Greenfield WBC 7.0 103/ul Normal 4.0-11.0 [facility] Comment on above: Performed By: #### B MP #### [facility] [address] [place] [address] Dr. Deepak Greenfield PROF CHEM 8 (BAS METB)on Anion gap [Moles/Vol] 14.9 mmol/L Normal [facility] Comment on above: Performed By: #### C BC #### [facility] [address] [place] [address] Dr. Deepak Greenfield Calcium [Mass/Vol] 8.8 mg/dL Normal 8.5-10.1 [facility] Comment on above: Performed By: #### C BC #### [facility] [address] [place] [address] Dr. Deepak Greenfield Chloride [Moles/Vol] 105 mmol/L Normal 98-107 [facility] Comment on above: Performed By: #### C BC #### [facility] [address] [place] [address] Dr. Deepak Greenfield CO2 [Moles/Vol] 26.4 mmol/L Normal 21.0-32.0 [facility] Comment on above: Performed By: #### C BC #### [facility] [address] [place] [address] Dr. Deepak Greenfield Creatinine [Mass/Vol] 0.70 mg/dL Normal 0.70-1.30 [facility] Comment on above: Performed By: #### C BC #### [facility] [address] [place] [address] Dr. Deepak Greenfield EGFR-AF UGANDAN >60 Normal >=60 [facility] Comment on above: Performed By: #### C BC #### [facility] [address] [place] [address] Dr. Deepak Greenfield EGFR-NON AF UGANDAN >60 Normal >=60 [facility] Comment on above: Performed By: #### C BC #### [facility] [address] [address] [address] Deepak Greenfield Glucose [Mass/Vol] 129 mg/dL Critically high 74-106 [facility] Comment on above: Performed By: #### C BC #### [facility] [address] [place] [address] Dr. Deepak Greenfield Potassium [Moles/Vol] 4.3 mmol/L Normal 3.5-5.1 [facility] Comment on above: Performed By: #### C BC #### [facility] [address] [place] [address] Dr. Deepak Greenfield Sodium [Moles/Vol] 142 mmol/L Normal 136-145 [facility] Comment on above: Performed By: #### C BC #### [facility] [address] [place] [address] Dr. Deepak Greenfield Urea nitrogen [Mass/Vol] 6.0 mg/dL Critically low 7.0-18.0 [facility] Comment on above: Performed By: #### C BC #### [facility] [address] [place] [address] Dr. Deepak Greenfield Urea nitrogen/Creatinine [Mass ratio] 8.6 mg/mg Normal [facility] Comment on above: Performed By: #### C BC #### [facility] [address] [place] [address] Dr. Deepak Greenfield AMMONIAon 07-30-2022 Ammonia (P) [Moles/Vol] 64 umol/L Critically high 11-32 [facility] Comment on above: Performed By: #### C BC #### [facility] [address] [place] [address] Dr. Deepak Greenfield CBC AUTO DIFFon 07-30-2022 BASO # 0.0 103/ul Normal 0.0-0.1 [facility] Comment on above: Performed By: #### I NFLUAB #### [facility] [address] [place] [address] Dr. Deepak Greenfield Basophils/100 WBC (Bld) 0.0 % Critically low 0.2-2.0 [facility] Comment on above: Performed By: #### I NFLUAB #### [facility] [address] [place] [address] Dr. Deepak Greenfield EO # 0.0 103/ul Normal 0.0-0.7 [facility] Comment on above: Performed By: #### I NFLUAB #### [facility] [address] [place] [address] Dr. Deepak Greenfield Eosinophils/100 WBC (Bld) 0.0 % Critically low 0.9-7.0 [facility] Comment on above: Performed By: #### I NFLUAB #### [facility] [address] [place] [address] Dr. Deepak Greenfield Erythrocyte distribution width (RBC) [Ratio] 13.1 % Normal 11.0-15.0 [facility] Comment on above: Performed By: #### I NFLUAB #### [facility] [address] [place] [address] Dr. Deepak Greenfield Hematocrit (Bld) [Volume fraction] 31.4 % Critically low 42.0-54.0 [facility] Comment on above: Performed By: #### I NFLUAB #### [facility] [address] [place] [address] Dr. Deepak Greenfield Hemoglobin (Bld) [Mass/Vol] 10.5 g/dL Critically low 14.0-18.0 [facility] Comment on above: Performed By: #### I NFLUAB #### [facility] [address] [place] [address] Dr. Deepak Greenfield IG # 0.01 10e3/ul Normal 0.00-0.03 [facility] Comment on above: Performed By: #### I NFLUAB #### [facility] [address] [place] [address] Dr. Deepak Greenfield IG % 0.2 % Normal 0.0-0.5 [facility] Comment on above: Performed By: #### I NFLUAB #### [facility] [address] [address] [address] Deepak Greenfield LYMPH # 1.5 103/ul Normal 1.2-3.8 [facility] Comment on above: Performed By: #### I NFLUAB #### [facility] [address] [place] [address] Dr. Deepak Greenfield Lymphocytes/100 WBC (Bld) 27.5 % Normal 20.5-60.0 [facility] Comment on above: Performed By: #### I NFLUAB #### [facility] [address] [place] [address] Dr. Deepak Greenfield MANUAL DIFF REQ NO Normal [facility] Comment on above: Performed By: #### I NFLUAB #### [facility] [address] [place] [address] Dr. Deepak Greenfield MCH (RBC) [Entitic mass] 32.4 pg Normal 25.9-34.0 [facility] Comment on above: Performed By: #### I NFLUAB #### [facility] [address] [place] [address] Dr. Deepak Greenfield MCHC (RBC) [Mass/Vol] 33.4 g/dL Normal 29.9-35.2 [facility] Comment on above: Performed By: #### I NFLUAB #### [facility] [address] [place] [address] Dr. Deepak Greenfield MCV (RBC) [Entitic vol] 96.9 fL Critically high 80.0-94.0 [facility] Comment on above: Performed By: #### I NFLUAB #### [facility] [address] [place] [address] Dr. Deepak Greenfield MONO # 0.2 103/ul Critically low 0.3-0.8 [facility] Comment on above: Performed By: #### I NFLUAB #### [facility] [address] [address] [address] Deepak Greenfield Monocytes/100 WBC (Bld) 2.9 % Normal 1.7-12.0 [facility] Comment on above: Performed By: #### I NFLUAB #### [facility] [address] [address] [address] Deepak Greenfield NEUT # 3.8 103/ul Normal 1.4-6.5 [facility] Comment on above: Performed By: #### I NFLUAB #### [facility] [address] [place] [address] Dr. Deepak Greenfield Neutrophils/100 WBC (Bld) 69.4 % Normal 43.0-75.0 [facility] Comment on above: Performed By: #### I NFLUAB #### [facility] [address] [place] [address] Dr. Deepak Greenfield Platelet mean volume (Bld) [Entitic vol] 9.4 fL Critically low 9.5-13.5 [facility] Comment on above: Performed By: #### I NFLUAB #### [facility] [address] [place] [address] Dr. Deepak Greenfield PLT 256 103/ul Normal 150-450 [facility] Comment on above: Performed By: #### I NFLUAB #### [facility] [address] [place] [address] Dr. Deepak Greenfield RBC 3.24 106/ul Critically low 4.70-6.10 [facility] Comment on above: Performed By: #### I NFLUAB #### [facility] [address] [place] [address] Dr. Deepak Greenfield WBC 5.5 103/ul Normal 4.0-11.0 [facility] Comment on above: Performed By: #### I NFLUAB #### [facility] [address] [place] [address] Dr. Deepak Greenfield Coding Summary.on 07-30-2022 Coding Summary. CD:[id number] W w+PGhlYWQ+QO2UKAUqU33 fkMPkcV8vN5CDAGnFTgnc OPIUWAyWRwGkotRyVI4fc XNjZXJu IC8+HO6uJWQqMbfiyZItz 8R4iPH2G21pho6sGLoxcI B3XYIdYcZynfmbl6eajDe 6IDcuNmluOyBt KEDjzV73RUG7qM09Ov84o XJtvPSaj9bplEs5HrEfNY FtCAA0zCfsBQrft5FyRAD jI83mdXYxc0K0 UWHsnUhrxPQxFeAohZU1b U9oFNwtbvtaf8bxhtnfAy o9jm19qVZka2A4zWM6W4M utvO6LKTuuXHi BkzidDECxP8gfeocc8cxv oxlIcTzNZIpFJo1MUv8UT ZjhVyzQbTiYN69NYL3PYQ myyDkD2TjJDCc gKtyYuR2y2W9Vz9BV0IDO vzcH7DXSFAPHDidoRY+PC 46au76A7EkHcqfDsi9DXL dVKR5cOU9lB6s HPSuUAoxz1K6vLN9P3Ozb xDngt0mz0vnDGBrVVteT1 9hiKQiu0G0CFEdpQC2YRR dkWxpQoWqwS05 Oyc+DXDokLaud6UyMwklu 7qef1nplFv8YuwtJYHgsc KdgLfzOOY1z7HbHo2wFEZ afFQ7mES1jI5p RnQnVyK6LBtyF443CsBqr ASvCpgtT52tC9AzpHR+PH UpBbi8DUUpwJbfWJ1wV0S hZGRpbmctbGVm zVwnVL0gNSBmuwfvCTKas B1lPRRsS2m5MuVlTrD5JT ouW7ZoULHychorAk72yV4 mZrCbKjY2NDud O8XrcxT5VZFjlDLuAKgnW RO1G30fr8B2XDBaOPQxTB P4iQC8tI4sdVzlyeotfZH mdDsgdmVydGlj BJcgZJqpH749MGGlzArqW kNvZGluZyBEYXRlOiAgMD QvMTMvMjAyMzwvdGQ+PHR gLCD0sScuXQXz mHVsBCkcUj4rxVpokFhmK G7bDWRhqqbdVQSetB7iOC PzzPUfuZqxFE0kUIZflpb bg780GmWgBGF0 NHUaoJCcU8MbzU0pPhClS KPeABSeS9YggEBkQJejG3 13IUzyKnS6OUQospSeK0D sLWFsaWduOiB0 g2R4Uy2Hd5CjdvkuX6Gau GNiTeDpDjjtWSt4K2ElNs wvdHI+EW32KJNbJD50HDw 3LEE4dSvwKNfu WCKoX7TbqR0fEpMxTKGrY GRkOyc+PHRhYmxlIHdpZH RoPScxMDAlJyBzdHlsZT0 vZh1sWYKiNANc xUlsjPXzTiJur5peMJKjY XyvJH3ftIkaL0AzkMA7NP Aiv6q4Cb11W11jF5ZltMI +GCMzkDT4kKH0 mP0fWnUhFmW9SGjjO991O sRgkTTyVgubd2tmu9eseS q8VyG4VZNfpxNcqYjgRHC 0g5CsXe12S85m IHdpZHRoPSIxNSUiIHZhb Sakco8grA2aDq8+PGNvbC Z4pMQ1xF5hAjSvAcP2WDp uG743UrHxbVPs Ftuvi5wqw7diuKa3HvXfH MOdkvZlgAlvSUN3h8AcOe 09L4BvtYgoh1RxKcj2kd3 2vGEge0I8hJD3 D3LjFSNoiwgtzMKyoSbrF M5yPJHyxwxfTLAusU5sMJ OjX0h7FfEnJkN7AXwvV6D otpN0LFRrkJYy RHRfkHPWkC4tjjejp0qdp hqmFxRnPFOnBDu7IUr2AM UsjGyvSnWzJGT3YlC3HLX 9oKBdeL3asLcz lqyvoZ1cPzm+TXG3uJIxf URFDK1pZashoPS+PHRkIH P6jAerWWxdOMRsbK2uQPS kL8v1ZpHwMoR4 VVvpP1WvzgT3NETzdYWpT MMxwCLItO1hdhays7tsso qlNhItQHQmDMo3NHn5LOI saWduOiBsZWZ0 RlJ8WFW8rQLooS5dvGeku kwtuI0bYef+QmlydGggRG I6GKk4F1FiVbe0RPEqrBi rPK6fhVXmBFxh Ha1lxRhanYmgYV4iAVCmp ypcw621GwNjy8roLVYuqM DeACkkNZI3B98rw2I5EBO wLKWuEDO9rTG2 zM2ugVhfywoixYAvfVxtw fGtpRdiGBgiYPnyJ440DM QfoMdzIlEjOWg6M1NtKqj 1LTSgxFilCL0n kBEhQAlrEx2icSznrBmfH L7sCDUmjbupn277RhMtx6 hbAZNfkAOmUHiiQFC0I09 ix1K0KMLsZSPh CSY2bSO9tO5ypXsbtqluy GVmdDsgdmVydGljYWwtYW esA981OOMlyKxmRlWhjNd 5M2RvRep1TIYo qLgqAX9jvOSlQTrfUz5ej JpirZryLU4dAMDohqouc8 41QoSmd8dsOZRqnTFqIHb fULX2P96nl0R6 VVCbCYViKQC1zBG3vX3zc GlnbjogbGVmdDsgdmVydG meWUkwKQigZ772MJKnoCc nPlBhdGllbnQg EXjyFFg4V8LuRkmqeBF+P S66EJXjJQ45zNBseQXni8 jlqTm3UiYmJDAuWPF7bVp nHSfva2ReRAYq Y42cxUBze9V6VGRzcQbir IImEvSgnIY5bU8yFBbtye isp5iituwfNpsbo0picv2 4cJ93E75aUZdt ZHRoPSIzMCUiIHZhbGlnb t0asC2wNd8+YMUgrKG1nA C9kV6lIQXbLhO1WLieT70 9InRvcCIvPjxj p4vwk8rbvWz6HdI9ZDVql tPkoIpaHXJ2s4HiXl03H3 9sIHdpZHRoPSIyMCUiIHZ cdUquvk5dwQ3d Ii8+OQHkfUG4zQO1uX8bE xKzGnE4TVsjV202GhYdhH YsKakoY53vK9HcgZR+PHR vTry4VQKiwJfu UZ5hwKHfOFftCg3nFQN5D iIzUbKqCKgtL1EoUQRqek hzhgwiySD3SOVeBJCijJ4 8Bw2ijAjrCLOu yFGAmZ7wapsri6zvjxqmV wUrJOLwGUp2PCy9VLAgcV upVuSnANF2JlO1MNY3iEA vdK5niUjzcuyx rN0sI8GeJEChtifuGi96r B4eAcAeNpH5MXrtUlu+U0 8XWBBGGRRHUYLLVtNYOM4 2KE83nHQma5A5 kIP2J9JhJXTtajhckcptx UH6HFOnMLAxzZ99oZOsOG duRs0pt9B5p159GWUfBFW iyR60Ox7whRzh HAXlnJEMxJ0tmjiey0nkk udmFjFlWERhIKk7VKh7BL BthDijClTmSSS7SkP6LDX 2iBZdxS4yiIfe zqxfgB9eWia+MTAvMTYvM Bq5VBwpnJI+NTGyLNU2aU deUUhrMGSieC3fEKLzS5a 3XlIrDtM1JHeb K1VuMWWpkxxtVg84xJ9mV pDwPgU6ONvlC2QwwuP8QR AobTMpNTouING5Z43ar5T 2TNAeSEXrRQM5 fHL8fF2ojYrmjuvjvZAln DsgdmVydGljYWwtYWxpZ2 46IHRvcDsnPjQyIFllYXJ aOL36TG40dMKq q1A3aJF8H3BiNRJephygu brbeGY6KBYuYTFbkP50hB HySMnlVu4wr6A0l191ZWG lIYEyfY39Cr4i nZojHVZpwXEUrN0jrgtov 1pzgrxlUnCnYOJiSPo1WI e2POOhvEkbByVuYOX4DfK 3WNU5yFEfkC9v kTsprrcheA6fCsq+TWFsZ TwvdGQ+VPOpISO0qAuyKN ihZFJrzK8jQCBoN5n7ZoE wYfI8PFznE3Pd WLNupqeoVz42rP9fKkPmC iS6PJjoQ1MaodA9HKRggN YjSCsaPUO6N38gm9Z7BWY hGSVfAAG8lWA9 kP2gmQsphanpbZFqdAskk oNaaXgzHXchASltV214YY LnoKnfHv19xWTasJqrjwY 3A5EqQduqvQL+ HI53AGIrUP79dOLpsKSlg 4pkmJf5DyQcCLBaXXR1oV kdNQzjz3ZrSCFjE20bkVV wm0C2GLUwkEzr tCEgPgZndVF0pW8cQMcvh kycg0asjbkbHumoo1njnu 46oU75U30iMVrkXTDpMHV zMCUiIHZhbGln dc8cuQ0zNj0+HKWhkPA2w KH6eS1jJePtVvV2BSynV8 41WiUlgMTyOsdsy3mry9f ifRl3QeRxQBSd vsPgwNhiNMC0v5IbKj18Z 29sIHdpZHRoPSIyMCUiIH QgiMglhb3hyK9sFy8+PC9 mq7ezwh49zU66 dHI+SEYlDYQ3vQuaTCkbA KXlzH4hJKynDtK3WQXlQw BcdU24iCHfFGktAp0urOb nrZvdGR5cYKVi qlpdg073FeVcz9lqYBDyu HHeTYhmCGL3A93mt7Y0IJ PqPYRiZMS6aFO0jF5ebPl nbjogbGVmdDsg ojZylCcjLIosYOtqI258X ODfyZqpXqGvdYYoC3ynud PDTZ6dCyocqQB+PHRkIHN 0eWxlPSdwYWRk lM8pBGIuM7n6LhTiCjK3H PtwJ6DgtaU2XZSlnDXkBY XgmLSGtP4bmeesa1bgyqs gIzAwMDAwMDt0 VYr9AKVxcOjmDtHuWPV4L yP5LMN5iGQkcI0eoVeqar wxgE6oAio+RklOOjwvdGQ +WWNsNDZ2oCkj IPbsALKjvJ8cMRMoV3g2Z fSqDdY8VWqlH8GakgH1WC NzzIDyITRwsJVHiT5exyr gn1gonkflIbYj IBEmRKk1LSm3DNIgwBfwC sUaHTC0CiW2YIE8kNAqaQ 9plZjxgmsvqM1nVcp+TVJ OOjwvdGQ+PHRk ZPR8xAjdDStdZGJafF7rK LIoB2o0OkNsYsJ6POiiI2 GigqZ4RBQmvPVcVRCptNK OzJ7vssyps1id dozwZzRiQIAjJIx0XBc0D ZBfvTqlJrYpBKK6QyA2IT M2rTQomO8ujXwrllfljH4 wOyc+TWN8BZB4 EJ01PV35J9UgTwhftQDct +PHRhYmxlIHdpZHRoPS idEYIkRtSimMbhWF7wBv2 yZGVyLWNvbGxh cHNlOiBj (more content not included)... Normal [facility] PROF CHEM 8 (BAS METB)on Anion gap [Moles/Vol] 8.3 mmol/L Normal [facility] Comment on above: Performed By: #### I NFLUAB #### [facility] [address] [address] [address] Deepak Greenfield Calcium [Mass/Vol] 8.5 mg/dL Normal 8.5-10.1 [facility] Comment on above: Performed By: #### I NFLUAB #### [facility] [address] [address] [address] Deepak Greenfield Chloride [Moles/Vol] 104 mmol/L Normal 98-107 [facility] Comment on above: Performed By: #### I NFLUAB #### [facility] [address] [address] [address] Deepak Greenfield CO2 [Moles/Vol] 30.0 mmol/L Normal 21.0-32.0 [facility] Comment on above: Performed By: #### I NFLUAB #### [facility] [address] [address] [address] Deepak Greenfield Creatinine [Mass/Vol] 0.46 mg/dL Critically low 0.70-1.30 [facility] Comment on above: Performed By: #### I NFLUAB #### [facility] [address] [address] [address] Deepak Greenfield EGFR-AF UGANDAN >60 Normal >=60 [facility] Comment on above: Performed By: #### I NFLUAB #### [facility] [address] [address] [address] Deepak Greenfield EGFR-NON AF UGANDAN >60 Normal >=60 [facility] Comment on above: Performed By: #### I NFLUAB #### [facility] [address] [address] [address] Deepak Greenfield Glucose [Mass/Vol] 152 mg/dL Critically high 74-106 [facility] Comment on above: Performed By: #### I NFLUAB #### [facility] [address] [address] [address] Deepak Greenfield Potassium [Moles/Vol] 4.3 mmol/L Normal 3.5-5.1 [facility] Comment on above: Performed By: #### I NFLUAB #### [facility] [address] [address] [address] Deepak Greenfield Sodium [Moles/Vol] 138 mmol/L Normal 136-145 [facility] Comment on above: Performed By: #### I NFLUAB #### [facility] [address] [place] [address] Dr. Deepak Greenfield Urea nitrogen [Mass/Vol] 9.0 mg/dL Normal 7.0-18.0 [facility] Comment on above: Performed By: #### I NFLUAB #### [facility] [address] [place] [address] Dr. Deepak Greenfield Urea nitrogen/Creatinine [Mass ratio] 19.6 mg/mg Normal [facility] Comment on above: Performed By: #### I NFLUAB #### [facility] [address] [place] [address] Dr. Deepak Greenfield AMMONIAon 07-29-2022 Ammonia (P) [Moles/Vol] 69 umol/L Critically high 11-32 [facility] Comment on above: Performed By: #### A MM #### [facility] [address] [place] [address] Dr. Deepak Greenfield CBC AUTO DIFFon 07-29-2022 BASO # 0.0 103/ul Normal 0.0-0.1 [facility] Comment on above: Performed By: #### M G, CMP #### [facility] [address] [place] [address] Dr. Deepak Greenfield Basophils/100 WBC (Bld) 0.2 % Normal 0.2-2.0 [facility] Comment on above: Performed By: #### M G, CMP #### [facility] [address] [place] [address] Dr. Deepak Greenfield EO # 0.0 103/ul Normal 0.0-0.7 [facility] Comment on above: Performed By: #### M G, CMP #### [facility] [address] [place] [address] Dr. Deepak Greenfield Eosinophils/100 WBC (Bld) 0.0 % Critically low 0.9-7.0 [facility] Comment on above: Performed By: #### M G, CMP #### [facility] [address] [place] [address] Dr. Deepak Greenfield Erythrocyte distribution width (RBC) [Ratio] 13.2 % Normal 11.0-15.0 [facility] Comment on above: Performed By: #### M G, CMP #### [facility] [address] [place] [address] Dr. Deepak Greenfield Hematocrit (Bld) [Volume fraction] 33.1 % Critically low 42.0-54.0 [facility] Comment on above: Performed By: #### M G, CMP #### [facility] [address] [place] [address] Dr. Deepak Greenfield Hemoglobin (Bld) [Mass/Vol] 10.8 g/dL Critically low 14.0-18.0 [facility] Comment on above: Performed By: #### M G, CMP #### [facility] [address] [place] [address] Dr. Deepak Greenfield IG # 0.04 10e3/ul Critically high 0.00-0.03 [facility] Comment on above: Performed By: #### M G, CMP #### [facility] [address] [place] [address] Dr. Deepak Greenfield IG % 0.5 % Normal 0.0-0.5 [facility] Comment on above: Performed By: #### M G, CMP #### [facility] [address] [place] [address] Dr. Deepak Greenfield LYMPH # 1.1 103/ul Critically low 1.2-3.8 [facility] [place] Comment on above: Performed By: #### M G, CMP #### [facility] [address] [place] [address] Dr. Deepak Greenfield Lymphocytes/100 WBC (Bld) 13.6 % Critically low 20.5-60.0 [facility] Comment on above: Performed By: #### M G, CMP #### [facility] [address] [place] [address] Dr. Deepak Greenfield MANUAL DIFF REQ NO Normal [facility] Comment on above: Performed By: #### M G, CMP #### [facility] [address] [place] [address] Dr. Deepak Greenfield MCH (RBC) [Entitic mass] 32.2 pg Normal 25.9-34.0 [facility] Comment on above: Performed By: #### M G, CMP #### [facility] [address] [place] [address] Dr. Deepak Greenfield MCHC (RBC) [Mass/Vol] 32.6 g/dL Normal 29.9-35.2 [facility] Comment on above: Performed By: #### M G, CMP #### [facility] [address] [place] [address] Dr. Deepak Greenfield MCV (RBC) [Entitic vol] 98.8 fL Critically high 80.0-94.0 [facility] Comment on above: Performed By: #### M G, CMP #### [facility] [address] [place] [address] Dr. Deepak Greenfield MONO # 0.3 103/ul Normal 0.3-0.8 [facility] Comment on above: Performed By: #### M G, CMP #### [facility] [address] [place] [address] Dr. Deepak Greenfield Monocytes/100 WBC (Bld) 3.8 % Normal 1.7-12.0 [facility] Comment on above: Performed By: #### M G, CMP #### [facility] [address] [place] [address] Dr. Deepak Greenfield NEUT # 6.7 103/ul Critically high 1.4-6.5 [facility] Comment on above: Performed By: #### M G, CMP #### [facility] [address] [address] [address] Deepak Greenfield Neutrophils/100 WBC (Bld) 81.9 % Critically high 43.0-75.0 [facility] Comment on above: Performed By: #### M G, CMP #### [facility] [address] [address] [address] Deepak Greenfield Platelet mean volume (Bld) [Entitic vol] 9.6 fL Normal 9.5-13.5 [facility] Comment on above: Performed By: #### M G, CMP #### [facility] [address] [address] [address] Deepak Greenfield PLT 257 103/ul Normal 150-450 [facility] Comment on above: Performed By: #### M G, CMP #### [facility] [address] [address] [address] Deepak Greenfield RBC 3.35 106/ul Critically low 4.70-6.10 [facility] Comment on above: Performed By: #### M G, CMP #### [facility] [address] [place] [address] Dr. Deepak Greenfield WBC 8.2 103/ul Normal 4.0-11.0 [facility] Comment on above: Performed By: #### M G, CMP #### [facility] [address] [place] [address] Dr. Deepak Greenfield LACTATE/LACTIC ACIDon 2022 Lactate [Moles/Vol] 1.1 mmol/L Normal 0.4-2.0 [facility] Comment on above: Performed By: #### I NFLUAB #### [facility] [address] [place] [address] Dr. Deepak Greenfield PROF CHEM 8 (BAS METB)on Anion gap [Moles/Vol] 9.4 mmol/L Normal [facility] Comment on above: Performed By: #### I NFLUAB #### [facility] [address] [address] [address] Deepak Greenfield Calcium [Mass/Vol] 8.0 mg/dL Critically low 8.5-10.1 [facility] Comment on above: Performed By: #### I NFLUAB #### [facility] [address] [address] [address] Deepak Greenfield Chloride [Moles/Vol] 105 mmol/L Normal 98-107 [facility] Comment on above: Performed By: #### I NFLUAB #### [facility] [address] [address] [address] Deepak Greenfield CO2 [Moles/Vol] 30.7 mmol/L Normal 21.0-32.0 [facility] Comment on above: Performed By: #### I NFLUAB #### [facility] [address] [place] [address] Dr. Deepak Greenfield Creatinine [Mass/Vol] 0.66 mg/dL Critically low 0.70-1.30 [facility] Comment on above: Performed By: #### I NFLUAB #### [facility] [address] [address] [address] Deepak Greenfield EGFR-AF UGANDAN >60 Normal >=60 [facility] Comment on above: Performed By: #### I NFLUAB #### [facility] [address] [place] [address] Dr. Deepak Greenfield EGFR-NON AF UGANDAN >60 Normal >=60 [facility] Comment on above: Performed By: #### I NFLUAB #### [facility] [address] [address] [address] Deepak Greenfield Glucose [Mass/Vol] 177 mg/dL Critically high 74-106 [facility] Comment on above: Performed By: #### I NFLUAB #### [facility] [address] [address] [address] Deepak Greenfield Potassium [Moles/Vol] 4.1 mmol/L Normal 3.5-5.1 [facility] Comment on above: Performed By: #### I NFLUAB #### [facility] [address] [place] [address] Dr. Deepak Greenfield Sodium [Moles/Vol] 141 mmol/L Normal 136-145 [facility] Comment on above: Performed By: #### I NFLUAB #### [facility] [address] [place] [address] Dr. Deepak Greenfield Urea nitrogen [Mass/Vol] 9.0 mg/dL Normal 7.0-18.0 [facility] Comment on above: Performed By: #### I NFLUAB #### [facility] [address] [place] [address] Dr. Deepak Greenfield Urea nitrogen/Creatinine [Mass ratio] 13.6 mg/mg Normal [facility] Comment on above: Performed By: #### I NFLUAB #### [facility] [address] [place] [address] Dr. Deepak Greenfield AMMONIAon 07-28-2022 Ammonia (P) [Moles/Vol] 68 umol/L Critically high 11-32 [facility] Comment on above: Performed By: #### B MP #### [facility] [address] [place] [address] Dr. Deepak Greenfield CBC AUTO DIFFon 07-28-2022 BASO # 0.0 103/ul Normal 0.0-0.1 [facility] Comment on above: Performed By: #### C BC #### [facility] [address] [place] [address] Dr. Deepak Greenfield Basophils/100 WBC (Bld) 0.3 % Normal 0.2-2.0 [facility] Comment on above: Performed By: #### C BC #### [facility] [address] [place] [address] Dr. Deepak Greenfield EO # 0.0 103/ul Normal 0.0-0.7 [facility] Comment on above: Performed By: #### C BC #### [facility] [address] [place] [address] Dr. Deepak Greenfield Eosinophils/100 WBC (Bld) 0.0 % Critically low 0.9-7.0 [facility] Comment on above: Performed By: #### C BC #### [facility] [address] [place] [address] Dr. Deepak Greenfield Erythrocyte distribution width (RBC) [Ratio] 13.3 % Normal 11.0-15.0 [facility] Comment on above: Performed By: #### C BC #### [facility] [address] [place] [address] Dr. Deepak Greenfield Hematocrit (Bld) [Volume fraction] 37.0 % Critically low 42.0-54.0 [facility] Comment on above: Performed By: #### C BC #### [facility] [address] [place] [address] Dr. Deepak Greenfield Hemoglobin (Bld) [Mass/Vol] 12.3 g/dL Critically low 14.0-18.0 [facility] Comment on above: Performed By: #### C BC #### [facility] [address] [place] [address] Dr. Deepak Greenfield IG # 0.06 10e3/ul Critically high 0.00-0.03 [facility] Comment on above: Performed By: #### C BC #### [facility] [address] [place] [address] Dr. Deepak Greenfield IG % 0.5 % Normal 0.0-0.5 [facility] Comment on above: Performed By: #### C BC #### [facility] [address] [place] [address] Dr. Deepak Greenfield LYMPH # 2.9 103/ul Normal 1.2-3.8 [facility] Comment on above: Performed By: #### C BC #### [facility] [address] [place] [address] Dr. Deepak Greenfield Lymphocytes/100 WBC (Bld) 23.5 % Normal 20.5-60.0 [facility] Comment on above: Performed By: #### C BC #### [facility] [address] [place] [address] Dr. Deepak Greenfield MANUAL DIFF REQ NO Normal [facility] Comment on above: Performed By: #### C BC #### [facility] [address] [address] [address] Deepak Greenfield MCH (RBC) [Entitic mass] 32.4 pg Normal 25.9-34.0 [facility] Comment on above: Performed By: #### C BC #### [facility] [address] [place] [address] Dr. Deepak Greenfield MCHC (RBC) [Mass/Vol] 33.2 g/dL Normal 29.9-35.2 [facility] Comment on above: Performed By: #### C BC #### [facility] [address] [place] [address] Dr. Deepak Greenfield MCV (RBC) [Entitic vol] 97.4 fL Critically high 80.0-94.0 [facility] Comment on above: Performed By: #### C BC #### [facility] [address] [place] [address] Dr. Deepak Greenfield MONO # 1.0 103/ul Critically high 0.3-0.8 [facility] Comment on above: Performed By: #### C BC #### [facility] [address] [place] [address] Dr. Deepak Greenfield Monocytes/100 WBC (Bld) 8.0 % Normal 1.7-12.0 [facility] Comment on above: Performed By: #### C BC #### [facility] [address] [place] [address] Dr. Deepak Greenfield NEUT # 8.3 103/ul Critically high 1.4-6.5 [facility] Comment on above: Performed By: #### C BC #### [facility] [address] [place] [address] Dr. Deepak Greenfield Neutrophils/100 WBC (Bld) 67.7 % Normal 43.0-75.0 [facility] Comment on above: Performed By: #### C BC #### [facility] [address] [place] [address] Dr. Deepak Greenfield Platelet mean volume (Bld) [Entitic vol] 9.7 fL Normal 9.5-13.5 [facility] Comment on above: Performed By: #### C BC #### [facility] [address] [place] [address] Dr. Deepak Greenfield PLT 325 103/ul Normal 150-450 [facility] Comment on above: Performed By: #### C BC #### [facility] [address] [place] [address] Dr. Deepak Greenfield RBC 3.80 106/ul Critically low 4.70-6.10 [facility] Comment on above: Performed By: #### C BC #### [facility] [address] [place] [address] Dr. Deepak Greenfield WBC 12.2 103/ul Critically high 4.0-11.0 [facility] Comment on above: Performed By: #### C BC #### [facility] [address] [place] [address] Dr. Deepak Greenfield CULTURE BLOODon 07-28-2022 Microscopic examination of blood, culture Culture Observations: NO GROWTH AT 5 DAYS. Normal [facility] Comment on above: Performed By: #### B [id number] #### [facility] [address] [place] [address] Dr. Deepak Greenfield Microscopic examination of blood, culture Culture Observations: NO GROWTH AT 5 DAYS. Normal [facility] Comment on above: Performed By: #### C BC #### [facility] [address] [place] [address] Dr. Deepak Greenfield LACTATE/LACTIC ACIDon 2022 Lactate [Moles/Vol] 2.5 mmol/L Critically high 0.4-2.0 [facility] Comment on above: Performed By: #### C VDTBH #### [facility] [address] [place] [address] Dr. Deepak Greenfield PROF 14(COMP METB)on 023 Albumin [Mass/Vol] 3.1 g/dL Critically low 3.4-5.0 [facility] Comment on above: Performed By: #### C BC #### [facility] [address] [place] [address] Dr. Deepak Greenfield Albumin/Globulin [Mass ratio] 0.7 {ratio} Normal [facility] Comment on above: Performed By: #### C BC #### [facility] [address] [address] [address] Deepak Greenfield ALP [Catalytic activity/Vol] 51 U/L Normal 46-116 [facility] Comment on above: Performed By: #### C BC #### [facility] [address] [address] [address] Deepak Greenfield ALT [Catalytic activity/Vol] 106 U/L Critically high 16-63 [facility] Comment on above: Performed By: #### C BC #### [facility] [address] [place] [address] Dr. Deepak Greenfield Anion gap [Moles/Vol] 14.2 mmol/L Normal [facility] Comment on above: Performed By: #### C BC #### [facility] [address] [place] [address] Dr. Deepak Greenfield AST [Catalytic activity/Vol] 81 U/L Critically high 15-37 [facility] Comment on above: Performed By: #### C BC #### [facility] [address] [place] [address] Dr. Deepak Greenfield Bilirubin [Mass/Vol] 0.4 mg/dL Normal 0.2-1.0 [facility] Comment on above: Performed By: #### C BC #### [facility] [address] [place] [address] Dr. Deepak Greenfield Calcium [Mass/Vol] 8.9 mg/dL Normal 8.5-10.1 [facility] Comment on above: Performed By: #### C BC #### [facility] [address] [address] [address] Deepak Greenfield Chloride [Moles/Vol] 105 mmol/L Normal 98-107 [facility] Comment on above: Performed By: #### C BC #### [facility] [address] [place] [address] Dr. Deepak Greenfield CO2 [Moles/Vol] 27.9 mmol/L Normal 21.0-32.0 [facility] Comment on above: Performed By: #### C BC #### [facility] [address] [address] [address] Deepak Greenfield Creatinine [Mass/Vol] 0.77 mg/dL Normal 0.70-1.30 [facility] Comment on above: Performed By: #### C BC #### [facility] [address] [address] [address] Deepak Greenfield EGFR-AF UGANDAN >60 Normal >=60 [facility] Comment on above: Performed By: #### C BC #### [facility] [address] [address] [address] Deepak Greenfield EGFR-NON AF UGANDAN >60 Normal >=60 [facility] Comment on above: Performed By: #### C BC #### [facility] [address] [place] [address] Dr. Deepak Greenfield Globulin (S) [Mass/Vol] 4.3 g/dL Normal [facility] Comment on above: Performed By: #### C BC #### [facility] [address] [place] [address] Dr. Deepak Greenfield Glucose [Mass/Vol] 162 mg/dL Critically high 74-106 [facility] Comment on above: Performed By: #### C BC #### [facility] [address] [place] [address] Dr. Deepak Greenfield Potassium [Moles/Vol] 4.1 mmol/L Normal 3.5-5.1 [facility] Comment on above: Performed By: #### C BC #### [facility] [address] [place] [address] Dr. Deepak Greenfield Protein [Mass/Vol] 7.4 g/dL Normal 6.4-8.2 [facility] Comment on above: Performed By: #### C BC #### [facility] [address] [place] [address] Dr. Deepak Greenfield Sodium [Moles/Vol] 143 mmol/L Normal 136-145 [facility] Comment on above: Performed By: #### C BC #### [facility] [address] [place] [address] Dr. Deepak Greenfield Urea nitrogen [Mass/Vol] 12.0 mg/dL Normal 7.0-18.0 [facility] Comment on above: Performed By: #### C BC #### [facility] [address] [place] [address] Dr. Deepak Greenfield Urea nitrogen/Creatinine [Mass ratio] 15.6 mg/mg Normal [facility] Comment on above: Performed By: #### C BC #### [facility] [address] [place] [address] Dr. Deepak Greenfield RESPIRATORY PANEL PLUSon Adenovirus Not detected Normal NOT DETECTED [facility] Comment on above: Performed By: #### B MP #### [facility] [address] [place] [address] Dr. Deepak Murphy. Parapertusis Not detected Normal NOT DETECTED [facility] Comment on above: Performed By: #### B MP #### [facility] [address] [place] [address] Dr. Deepak Murphy. Pertussis Not detected Normal NOT DETECTED [facility] Comment on above: Performed By: #### B MP #### [facility] [address] [place] [address] Dr. Deepka Greenfield Chlamydia Pneumoniae Not detected Normal NOT DETECTED [facility] Comment on above: Performed By: #### B MP #### [facility] [address] [place] [address] Dr. Deepak Greenfield Coronavirus 229E Not detected Normal NOT DETECTED [facility] Comment on above: Performed By: #### B MP #### [facility] [address] [place] [address] Dr. Deepak Greenfield Coronavirus HKU1 Not detected Normal NOT DETECTED [facility] Comment on above: Performed By: #### B MP #### [facility] [address] [place] [address] Dr. Deepak Greenfield Coronavirus NL63 Not detected Normal NOT DETECTED [facility] Comment on above: Performed By: #### B MP #### [facility] [address] [address] [address] Deepak Greenfield Coronavirus OC43 Not detected Normal NOT DETECTED [facility] Comment on above: Performed By: #### B MP #### [facility] [address] [address] [address] Deepak Greenfield Influenza A H1 Not detected Normal NOT DETECTED [facility] Comment on above: Performed By: #### B MP #### [facility] [address] [address] [address] Deepak Greenfield Influenza A H1 2009 Not detected Normal NOT DETECTED [facility] Comment on above: Performed By: #### B MP #### [facility] [address] [address] [address] Deepak Greenfield Influenza A H3 Not detected Normal NOT DETECTED [facility] Comment on above: Performed By: #### B MP #### [facility] [address] [address] [address] Deepak Greenfield Influenza B Not detected Normal NOT DETECTED [facility] Comment on above: Performed By: #### B MP #### [facility] [address] [address] [address] Deepak Greenfield Metapneumovirus Detected Abnormal NOT DETECTED [facility] Comment on above: Performed By: #### B MP #### [facility] [address] [place] [address] Dr. Deepak Greenfield Mycoplas. Pneumoniae Not detected Normal NOT DETECTED [facility] Comment on above: Performed By: #### B MP #### [facility] [address] [address] [address] Deepak Greenfield Parainfluenza 1 Not detected Normal NOT DETECTED [facility] Comment on above: Performed By: #### B MP #### [facility] [address] [address] [address] Deepak Greenfield Parainfluenza 2 Not detected Normal NOT DETECTED [facility] Comment on above: Performed By: #### B MP #### [facility] [address] [address] [address] Deepak Greenfield Parainfluenza 3 Not detected Normal NOT DETECTED [facility] Comment on above: Performed By: #### B MP #### [facility] [address] [address] [address] Deepak Greenfield Parainfluenza 4 Not detected Normal NOT DETECTED [facility] Comment on above: Performed By: #### B MP #### [facility] [address] [place] [address] Dr. Deepak Greenfield Rhino/Enterovirus Not detected Normal NOT DETECTED [facility] Comment on above: Performed By: #### B MP #### [facility] [address] [address] [address] Deepak Greenfield RP2 Header 1 RESPIRATORY PANEL: VIRUSES Normal [facility] Comment on above: Performed By: #### B MP #### [facility] [address] [place] [address] Dr. Deepak Greenfield RP2 Header 2 RESPIRATORY PANEL: BACTERIA Normal [facility] Comment on above: Performed By: #### B MP #### [facility] [address] [place] [address] Dr. Deepak Greenfield RSV Not detected Normal NOT DETECTED [facility] Comment on above: Performed By: #### B MP #### [facility] [address] [place] [address] Dr. Deepak Greenfield SARS-CoV-2 (COVID-19) RNA CINDY+probe Ql (Unsp spec) Not detected Normal NOT DETECTED [facility] Comment on above: Performed By: #### B MP #### [facility] [address] [place] [address] Dr. Deepak Greenfield XR CHEST 1 Von [...] Akua PEREZ Date: 2022-07-28 20:23 Normal [facility] AMMONIAon 07-27-2022 Ammonia (P) [Moles/Vol] 76 umol/L Critically high 11-32 [facility] Comment on above: Performed By: #### M G, CMP #### [facility] [address] [place] [address] Dr. Deepak Greenfield CBC W MANUAL DIFFon 07-28-19 23 ATYPICAL LYMPH # Normal [facility] Comment on above: Performed By: #### M G, CMP #### [facility] [address] [place] [address] Dr. Deepak Greenfield ATYPICAL LYMPH % Normal [facility] Comment on above: Performed By: #### M Lacy, CMP #### [facility] [address] [place] [address] Dr. Deepak Greenfield BAND # 0.4 103/ul Critically high 0.0-0.3 [facility] Comment on above: Performed By: #### M G, CMP #### [facility] [address] [place] [address] Dr. Deepak Greenfield BAND % 4 % Normal 0-5 [facility] Comment on above: Performed By: #### M G, CMP #### [facility] [address] [place] [address] Dr. Deepak Greenfield BASOM # 0.00 103/ul Normal 0.00-0.10 [facility] Comment on above: Performed By: #### M G, CMP #### [facility] [address] [place] [address] Dr. Deepak Greenfield BASOM % 0.0 % Critically low 0.2-2.0 [facility] Comment on above: Performed By: #### M G, CMP #### [facility] [address] [place] [address] Dr. Deepak Greenfield BLAST # Normal [facility] Comment on above: Performed By: #### M G, CMP #### [facility] [address] [address] [address] Deepak Greenfield BLAST % Normal [facility] Comment on above: Performed By: #### M G, CMP #### [facility] [address] [address] [address] Deepak Greenfield CORRECTED WBC Normal 4.0-11.[address] [facility] Comment on above: Performed By: #### M G, CMP #### [facility] [address] [address] [address] Deepak Greenfield EOS # 0.00 103/ul Normal 0.00-0.70 [facility] Comment on above: Performed By: #### M G, CMP #### [facility] [address] [address] [address] Deepak Greenfield EOS% 0.0 % Critically low 0.9-7.0 [facility] Comment on above: Performed By: #### M G, CMP #### [facility] [address] [address] [address] Deepak Greenfield HCT 29.6 % Critically low 42.0-54.0 [facility] Comment on above: Performed By: #### M G, CMP #### [facility] [address] [address] [address] Deepak Greenfield HGB 10.4 g/dl Critically low 14.0-18.0 [facility] Comment on above: Performed By: #### M G, CMP #### [facility] [address] [address] [address] Deepak Greenfield LYMPHM # 0.71 103/ul Critically low 1.20-3.80 [facility] Comment on above: Performed By: #### M G, CMP #### [facility] [address] [address] [address] Deepak Greenfield LYMPHM% 8.0 % Critically low 20.5-60.0 [facility] Comment on above: Performed By: #### M G, CMP #### [facility] [address] [place] [address] Dr. Deepak Greenfield MCH 33.0 pg Normal 25.9-34.0 [facility] Comment on above: Performed By: #### M G, CMP #### [facility] [address] [place] [address] Dr. Deepak Greenfield MCHC 35.1 g/dl Normal 29.9-35.2 [facility] Comment on above: Performed By: #### M G, CMP #### [facility] [address] [place] [address] Dr. Deepak Greenfield MCV 94.0 fL Normal 80.0-94.0 [facility] Comment on above: Performed By: #### M G, CMP #### [facility] [address] [place] [address] Dr. Deepak Greenfield METAMYELOCYTE # Normal [facility] Comment on above: Performed By: #### M G, CMP #### [facility] [address] [place] [address] Dr. Deepak Greenfield METAMYELOCYTE % Normal [facility] Comment on above: Performed By: #### M G, CMP #### [facility] [address] [place] [address] Dr. Deepak Greenfield MONOM# 0.71 103/ul Normal 0.30-0.80 [facility] Comment on above: Performed By: #### M G, CMP #### [facility] [address] [place] [address] Dr. Deepak Greenfield MONOM% 8.0 % Normal 1.7-12.0 [facility] Comment on above: Performed By: #### M G, CMP #### [facility] [address] [place] [address] Dr. Deepak Greenfield MPV 9.6 fL Normal 9.5-13.5 [facility] Comment on above: Performed By: #### M G, CMP #### [facility] [address] [place] [address] Dr. Deepak Greenfield MYELOCYTE # Normal [facility] Comment on above: Performed By: #### M G, CMP #### [facility] [address] [place] [address] Dr. Deepak Greenfield MYELOCYTE % Normal [facility] Comment on above: Performed By: #### M G, CMP #### [facility] [address] [address] [address] Deepak Greenfield NRBC Normal [facility] Comment on above: Performed By: #### M G, CMP #### [facility] [address] [address] [address] Deepak Greenfield PLT 267 103/ul Normal 150-450 [facility] Comment on above: Performed By: #### M G, CMP #### [facility] [address] [place] [address] Dr. Deepak Greenfield RBC 3.15 106/ul Critically low 4.70-6.10 [facility] Comment on above: Performed By: #### M G, CMP #### [facility] [address] [place] [address] Dr. Deepak Greenfield RDW 12.9 % Normal 11.0-15.0 [facility] Comment on above: Performed By: #### M G, CMP #### [facility] [address] [place] [address] Dr. Deepak Greenfield SEG # 7.12 103/ul Critically high 1.40-6.50 [facility] Comment on above: Performed By: #### M G, CMP #### [facility] [address] [place] [address] Dr. Deepak Greenfield SEG % 80.0 % Critically high 43.0-75.0 [facility] Comment on above: Performed By: #### M G, CMP #### [facility] [address] [place] [address] Dr. Deepak Greenfield WBC 8.9 103/ul Normal 4.0-11.0 [facility] Comment on above: Performed By: #### M G, CMP #### [facility] [address] [place] [address] Dr. Deepak Greenfield PROF CHEM 8 (BAS METB)on Anion gap [Moles/Vol] 12.4 mmol/L Normal [facility] Comment on above: Performed By: #### C BC #### [facility] [address] [place] [address] Dr. Deepak Greenfield Calcium [Mass/Vol] 8.2 mg/dL Critically low 8.5-10.1 [facility] Comment on above: Performed By: #### C BC #### [facility] [address] [place] [address] Dr. eDepak Greenfield Chloride [Moles/Vol] 101 mmol/L Normal 98-107 [facility] Comment on above: Performed By: #### C BC #### [facility] [address] [place] [address] Dr. Deepak Greenfield CO2 [Moles/Vol] 25.0 mmol/L Normal 21.0-32.0 [facility] Comment on above: Performed By: #### C BC #### [facility] [address] [place] [address] Dr. Deepak Greenfield Creatinine [Mass/Vol] 0.53 mg/dL Critically low 0.70-1.30 [facility] Comment on above: Performed By: #### C BC #### [facility] [address] [place] [address] Dr. Deepak Greenfield EGFR-AF UGANDAN >60 Normal >=60 [facility] Comment on above: Performed By: #### C BC #### [facility] [address] [place] [address] Dr. Deepak Greenfield EGFR-NON AF UGANDAN >60 Normal >=60 [facility] Comment on above: Performed By: #### C BC #### [facility] [address] [place] [address] Dr. Deepak Greenfield Glucose [Mass/Vol] 161 mg/dL Critically high 74-106 [facility] Comment on above: Performed By: #### C BC #### [facility] [address] [place] [address] Dr. Deepak Greenfield Potassium [Moles/Vol] 4.4 mmol/L Normal 3.5-5.1 [facility] Comment on above: Performed By: #### C BC #### [facility] [address] [address] [address] Deepak Greenfield Sodium [Moles/Vol] 134 mmol/L Critically low 136-145 [facility] Comment on above: Performed By: #### C BC #### [facility] [address] [address] [address] Deepak Greenfield Urea nitrogen [Mass/Vol] 13.0 mg/dL Normal 7.0-18.0 [facility] Comment on above: Performed By: #### C BC #### [facility] [address] [address] [address] Deepak Greenfield Urea nitrogen/Creatinine [Mass ratio] 24.5 mg/mg Normal [facility] Comment on above: Performed By: #### C BC #### [facility] [address] [place] [address] Dr. Deepak Greenfield AMMONIAon 07-26-2022 Ammonia (P) [Moles/Vol] 56 umol/L Critically high 11-32 [facility] Comment on above: Performed By: #### M G, CMP #### [facility] [address] [place] [address] Dr. Deepak Greenfield CARDIAC BEATRIS ADMITon 023 CK [Catalytic activity/Vol] 83 U/L Normal 39-308 [facility] Comment on above: Performed By: #### B MP #### [facility] [address] [place] [address] Dr. Deepak Greenfield CK.MB [Mass/Vol] 0.86 ng/mL Normal <=3.60 [facility] Comment on above: Performed By: #### B MP #### [facility] [address] [place] [address] Dr. Deepak Greenfield HSTROP 7.4 pg/mL Normal 4.0-76.1 [facility] Comment on above: Result Comment: CUT- OFF POINTS HAVE BEEN ESTABLISHED BASED ON THE FOURTH UNIVERSAL DEFINITIONS OF MYOCARDIAL INFARCTION. THE UPPER REFERENCE LIMIT (URL) OF TROPONIN, DEFINED THE 99TH PERCENTILE OF cTnI DISTRIBUTION IN A REFERENCE POPULATION, HAS BEEN CONFIRMED THE DECISION THRESHOLD FOR ME DIAGNOSIS. Performed By: #### B MP #### [facility] [address] [address] [address] Deepak Greenfield VALE 46 ng/mL Normal 16-96 [facility] Comment on above: Performed By: #### B MP #### [facility] [address] [address] [address] Deepak Greenfield CBC AUTO DIFFon 07-26-2022 BASO # 0.1 103/ul Normal 0.0-0.1 [facility] Comment on above: Performed By: #### M G, CMP #### [facility] [address] [address] [address] Deepak Greenfield Basophils/100 WBC (Bld) 0.5 % Normal 0.2-2.0 [facility] Comment on above: Performed By: #### M G, CMP #### [facility] [address] [place] [address] Dr. Deepak Greenfield EO # 0.2 103/ul Normal 0.0-0.7 [facility] Comment on above: Performed By: #### M G, CMP #### [facility] [address] [place] [address] Dr. Deepak Greenfield Eosinophils/100 WBC (Bld) 2.1 % Normal 0.9-7.0 [facility] Comment on above: Performed By: #### M G, CMP #### [facility] [address] [place] [address] Dr. Deepak Greenfield Erythrocyte distribution width (RBC) [Ratio] 13.2 % Normal 11.0-15.0 [facility] Comment on above: Performed By: #### M G, CMP #### [facility] [address] [place] [address] Dr. Deepak Greenfield Hematocrit (Bld) [Volume fraction] 36.7 % Critically low 42.0-54.0 [facility] Comment on above: Performed By: #### M G, CMP #### [facility] [address] [place] [address] Dr. Deepak Greenfield Hemoglobin (Bld) [Mass/Vol] 12.4 g/dL Critically low 14.0-18.0 [facility] Comment on above: Performed By: #### M G, CMP #### [facility] [address] [place] [address] Dr. Deepak Greenfield IG # 0.04 10e3/ul Critically high 0.00-0.03 [facility] Comment on above: Performed By: #### M G, CMP #### [facility] [address] [place] [address] Dr. Deepak Greenfield IG % 0.4 % Normal 0.0-0.5 [facility] Comment on above: Performed By: #### M G, CMP #### [facility] [address] [place] [address] Dr. Deepak Greenfield LYMPH # 1.7 103/ul Normal 1.2-3.8 [facility] Comment on above: Performed By: #### M G, CMP #### [facility] [address] [place] [address] Dr. Deepak Greenfield Lymphocytes/100 WBC (Bld) 15.6 % Critically low 20.5-60.0 [facility] Comment on above: Performed By: #### M G, CMP #### [facility] [address] [place] [address] Dr. Deepak Greenfield MANUAL DIFF REQ NO Normal [facility] Comment on above: Performed By: #### M G, CMP #### [facility] [address] [place] [address] Dr. Deepak Greenfield MCH (RBC) [Entitic mass] 32.5 pg Normal 25.9-34.0 [facility] Comment on above: Performed By: #### M G, CMP #### [facility] [address] [place] [address] Dr. Deepak Greenfield MCHC (RBC) [Mass/Vol] 33.8 g/dL Normal 29.9-35.2 [facility] Comment on above: Performed By: #### M G, CMP #### [facility] [address] [place] [address] Dr. Deepak Greenfield MCV (RBC) [Entitic vol] 96.3 fL Critically high 80.0-94.0 [facility] Comment on above: Performed By: #### M G, CMP #### [facility] [address] [place] [address] Dr. Deepak Greenfield MONO # 1.4 103/ul Critically high 0.3-0.8 [facility] Comment on above: Performed By: #### M G, CMP #### [facility] [address] [place] [address] Dr. Deepak Greenfield Monocytes/100 WBC (Bld) 12.8 % Critically high 1.7-12.0 [facility] Comment on above: Performed By: #### M G, CMP #### [facility] [address] [place] [address] Dr. Deepak Greenfield NEUT # 7.4 103/ul Critically high 1.4-6.5 [facility] Comment on above: Performed By: #### M G, CMP #### [facility] [address] [place] [address] Dr. Deepak Greenfield Neutrophils/100 WBC (Bld) 68.6 % Normal 43.0-75.0 [facility] Comment on above: Performed By: #### M G, CMP #### [facility] [address] [place] [address] Dr. Deepak Greenfield Platelet mean volume (Bld) [Entitic vol] 9.5 fL Normal 9.5-13.5 [facility] Comment on above: Performed By: #### M G, CMP #### [facility] [address] [place] [address] Dr. Deepak Greenfield PLT 314 103/ul Normal 150-450 [facility] Comment on above: Performed By: #### M G, CMP #### [facility] [address] [place] [address] Dr. Deepak Greenfield RBC 3.81 106/ul Critically low 4.70-6.10 [facility] Comment on above: Performed By: #### M G, CMP #### [facility] [address] [place] [address] Dr. Deepak Greenfield WBC 10.8 103/ul Normal 4.0-11.0 [facility] Comment on above: Performed By: #### M G, CMP #### [facility] [address] [place] [address] Dr. Deepak Greenfield [facility]on SARS-CoV-2 (COVID-19) RNA CINDY+probe Ql (Unsp spec) Not detected Normal NOT DETECTED [facility] Comment on above: Result Comment: [...] for this test is supported by the Tax Revenue Officer of Health and Human Service's declaration that [...] used). Performed By: #### C VDTBH #### [facility] [address] [place] [address] Dr. Deepak Greenfield INFLUENZA A AND B AGon 07-26 INFLUANE SEE BELOW Normal [facility] Comment on above: Result Comment: Nega tive for Flu A protein angiten. Infection due to Flu A cannot be ruled out. Flu A angiten in the sample may be below the detection limit of the test. Performed By: #### I NFLUAB #### [facility] [address] [place] [address] Dr. Deepak Greenfield INFLUBNEG SEE BELOW Normal [facility] Comment on above: Result Comment: Nega tive for Flu B protein antigen. Infection due to Flu B cannot be ruled out. Flu B antigen in the sample may be below the detection limit of the test. Performed By: #### I NFLUAB #### [facility] [address] [place] [address] Dr. Deepak Greenfield INFLUENZA A AG Negative Normal NEGATIVE SEE COMMENT [facility] Comment on above: Performed By: #### I NFLUAB #### [facility] [address] [place] [address] Dr. Deepak Greenfield INFLUENZA B AG Negative Normal NEGATIVE SEE COMMENT [facility] Comment on above: Performed By: #### I NFLUAB #### [facility] [address] [place] [address] Dr. Deepak Greenfield LACTATE/LACTIC ACIDon 2022 Lactate [Moles/Vol] 1.2 mmol/L Normal 0.4-2.0 [facility] Comment on above: Performed By: #### M G, CMP #### [facility] [address] [place] [address] Dr. Deepak Greenfield PROF 14(COMP METB)on 023 Albumin [Mass/Vol] 3.3 g/dL Critically low 3.4-5.0 [facility] Comment on above: Performed By: #### B MP #### [facility] [address] [place] [address] Dr. Deepak Greenfield Albumin/Globulin [Mass ratio] 0.8 {ratio} Normal [facility] Comment on above: Performed By: #### B MP #### [facility] [address] [place] [address] Dr. Deepak Greenfield ALP [Catalytic activity/Vol] 45 U/L Critically low 46-116 [facility] Comment on above: Performed By: #### B MP #### [facility] [address] [place] [address] Dr. Deepak Greenfield ALT [Catalytic activity/Vol] 114 U/L Critically high 16-63 [facility] Comment on above: Performed By: #### B MP #### [facility] [address] [place] [address] Dr. Deepak Greenfield Anion gap [Moles/Vol] 14.5 mmol/L Normal [facility] Comment on above: Performed By: #### B MP #### [facility] [address] [address] [address] Deepak Greenfield AST [Catalytic activity/Vol] 71 U/L Critically high 15-37 [facility] Comment on above: Performed By: #### B MP #### [facility] [address] [address] [address] Deepak Greenfield Bilirubin [Mass/Vol] 0.7 mg/dL Normal 0.2-1.0 [facility] Comment on above: Performed By: #### B MP #### [facility] [address] [address] [address] Deepak Greenfield Calcium [Mass/Vol] 9.1 mg/dL Normal 8.5-10.1 [facility] Comment on above: Performed By: #### B MP #### [facility] [address] [address] [address] Deepak Greenfield Chloride [Moles/Vol] 98 mmol/L Normal 98-107 [facility] Comment on above: Performed By: #### B MP #### [facility] [address] [address] [address] Deepak Greenfield CO2 [Moles/Vol] 27.4 mmol/L Normal 21.0-32.0 [facility] Comment on above: Performed By: #### B MP #### [facility] [address] [address] [address] Deepak Greenfield Creatinine [Mass/Vol] 0.65 mg/dL Critically low 0.70-1.30 [facility] Comment on above: Performed By: #### B MP #### [facility] [address] [address] [address] Deepak Greenfield EGFR-AF UGANDAN >60 Normal >=60 [facility] Comment on above: Performed By: #### B MP #### [facility] [address] [address] [address] Deepak Greenfield EGFR-NON AF UGANDAN >60 Normal >=60 [facility] Comment on above: Performed By: #### B MP #### [facility] [address] [address] [address] Deepak Greenfield Globulin (S) [Mass/Vol] 4.2 g/dL Normal [facility] Comment on above: Performed By: #### B MP #### [facility] [address] [address] [address] Deepak Greenfield Glucose [Mass/Vol] 105 mg/dL Normal 74-106 [facility] Comment on above: Performed By: #### B MP #### [facility] [address] [address] [address] Deepak Greenfield Potassium [Moles/Vol] 3.9 mmol/L Normal 3.5-5.1 [facility] Comment on above: Performed By: #### B MP #### [facility] [address] [place] [address] Dr. Deepak Greenfield Protein [Mass/Vol] 7.5 g/dL Normal 6.4-8.2 [facility] Comment on above: Performed By: #### B MP #### [facility] [address] [place] [address] Dr. Deepak Greenfield Sodium [Moles/Vol] 136 mmol/L Normal 136-145 [facility] Comment on above: Performed By: #### B MP #### [facility] [address] [place] [address] Dr. Deepak Greenfield Urea nitrogen [Mass/Vol] 13.0 mg/dL Normal 7.0-18.0 [facility] Comment on above: Performed By: #### B MP #### [facility] [address] [place] [address] Dr. Deepak Greenfield Urea nitrogen/Creatinine [Mass ratio] 20.0 mg/mg Normal [facility] Comment on above: Performed By: #### B MP #### [facility] [address] [place], [place] [id number] Dr. Deepak Greenfield XR CHEST 1 Von [...] by: ANICETO GARCIA Date: 2022-07-26 12:27 Normal [facility] Consent for Treatmenton 04-0 Consent for Treatment [id number] .[id number]:127 Normal [facility] Physician Orderon 07-23-2022 Physician Order [id number] 1.00CD:127 Normal [facility] XR Adult Swallowing Function w/ Videoon [...] REPORT Dictated: 07/23/2022 11:52 am Fam Viramontes MD. Signed (Electronic Signature): 07/23/2022 11:52 am Signed by: Fam Viramontes MD Transcribed by: CAMI Technologist: SARAVANAN Technical Comments Radiation Dose: Ka,r in mGy = 11.70 DAP = 270.92 Normal [facility] AMMONIAon 06-03-2022 Ammonia (P) [Moles/Vol] 112 umol/L Critically high 11-32 [facility] Comment on above: Performed By: #### A MM #### [facility] [address] [place] [address] Dr. Deepak Greenfield DEPAKENE/ VALPROIC ACIDon DEPAKENE 94.0 ug/ml Normal 50.0-100.0 [facility] Comment on above: Performed By: #### C BC #### [facility] [address] [place] [address] Dr. Deepak Greenfield LIVER PROFILEon 06-03-2022 Albumin [Mass/Vol] 3.6 g/dL Normal 3.4-5.0 [facility] Comment on above: Performed By: #### C BC #### [facility] [address] [place] [address] Dr. Deepak Greenfield Albumin/Globulin [Mass ratio] 0.9 {ratio} Normal [facility] Comment on above: Performed By: #### C BC #### [facility] [address] [place] [address] Dr. Deepak Greenfield ALP [Catalytic activity/Vol] 55 U/L Normal 46-116 [facility] Comment on above: Performed By: #### C BC #### [facility] [address] [place] [address] Dr. Deepak Greenfield ALT [Catalytic activity/Vol] 76 U/L Critically high 16-63 [facility] Comment on above: Performed By: #### C BC #### [facility] [address] [place] [address] Dr. Deepak Greenfield AST [Catalytic activity/Vol] 51 U/L Critically high 15-37 [facility] Comment on above: Performed By: #### C BC #### [facility] [address] [place] [address] Dr. Deepak Greenfield BILI, CONJUGATED 0.1 mg/dL Normal 0.0-0.2 [facility] Comment on above: Performed By: #### C BC #### [facility] [address] [place] [address] Dr. Deepak Greenfield Bilirubin [Mass/Vol] 0.4 mg/dL Normal 0.2-1.0 [facility] Comment on above: Performed By: #### C BC #### [facility] [address] [place] [address] Dr. Deepak Greenfield Globulin (S) [Mass/Vol] 4.1 g/dL Normal [facility] Comment on above: Performed By: #### C BC #### [facility] [address] [place] [address] Dr. Deepak Greenfield Protein [Mass/Vol] 7.7 g/dL Normal 6.4-8.2 [facility] Comment on above: Performed By: #### C BC #### [facility] [address] [place] [address] Dr. Deepak Greenfield AMMONIAon 04-22-2022 Ammonia (P) [Moles/Vol] 108 umol/L Critically high 11-32 [facility] Comment on above: Performed By: #### B MP #### [facility] [address] [place] [address] Dr. Deepak Greenfield CBC AUTO DIFFon 04-22-2022 BASO # 0.0 103/ul Normal 0.0-0.1 [facility] Comment on above: Performed By: #### C BC #### [facility] [facility] [address] [place] [address] Dr. Deepak Greenfield Basophils/100 WBC (Bld) 0.5 % Normal 0.2-2.0 [facility] Comment on above: Performed By: #### C BC #### [facility] [address] [place] [address] Dr. Deepak Greenfield EO # 0.1 103/ul Normal 0.0-0.7 [facility] Comment on above: Performed By: #### C BC #### [facility] [address] [place] [address] Dr. Deepak Greenfield Eosinophils/100 WBC (Bld) 1.4 % Normal 0.9-7.0 [facility] Comment on above: Performed By: #### C BC #### [facility] [address] [place] [address] Dr. Deepak Greenfield Erythrocyte distribution width (RBC) [Ratio] 14.2 % Normal 11.0-15.0 [facility] Comment on above: Performed By: #### C BC #### [facility] [address] [place] [address] Dr. Deepak Greenfield Hematocrit (Bld) [Volume fraction] 37.0 % Critically low 42.0-54.0 [facility] Comment on above: Performed By: #### C BC #### [facility] [address] [place] [address] Dr. Deepak Greenfield Hemoglobin (Bld) [Mass/Vol] 12.3 g/dL Critically low 14.0-18.0 [facility] Comment on above: Performed By: #### C BC #### [facility] [address] [place] [address] Dr. Deepak Greenfield IG # 0.00 10e3/ul Normal 0.00-0.03 [facility] Comment on above: Performed By: #### C BC #### [facility] [address] [place] [address] Dr. Deepak Greenfield IG % 0.0 % Normal 0.0-0.5 [facility] Comment on above: Performed By: #### C BC #### [facility] [address] [place] [address] Dr. Deepak Greenfield LYMPH # 3.3 103/ul Normal 1.2-3.8 [facility] Comment on above: Performed By: #### C BC #### [facility] [address] [place] [address] Dr. Deepak Greenfield Lymphocytes/100 WBC (Bld) 51.5 % Normal 20.5-60.0 [facility] Comment on above: Performed By: #### C BC #### [facility] [address] [place] [address] Dr. Deepak Greenfield MANUAL DIFF REQ NO Normal [facility] Comment on above: Performed By: #### C BC #### [facility] [address] [place] [address] Dr. Deepak Greenfield MCH (RBC) [Entitic mass] 32.2 pg Normal 25.9-34.0 [facility] Comment on above: Performed By: #### C BC #### [facility] [address] [place] [address] Dr. Deepak Greenfield MCHC (RBC) [Mass/Vol] 33.2 g/dL Normal 29.9-35.2 [facility] Comment on above: Performed By: #### C BC #### [facility] [address] [place] [address] Dr. Deepak Greenfield MCV (RBC) [Entitic vol] 96.9 fL Critically high 80.0-94.0 [facility] Comment on above: Performed By: #### C BC #### [facility] [address] [place] [address] Dr. Deepak Greenfield MONO # 0.6 103/ul Normal 0.3-0.8 [facility] Comment on above: Performed By: #### C BC #### [facility] [address] [place] [address] Dr. Deepak Greenfield Monocytes/100 WBC (Bld) 9.7 % Normal 1.7-12.0 [facility] Comment on above: Performed By: #### C BC #### [facility] [address] [place] [address] Dr. Deepak Greenfield NEUT # 2.4 103/ul Normal 1.4-6.5 [facility] Comment on above: Performed By: #### C BC #### [facility] [address] [place] [address] Dr. Deepak Greenfield Neutrophils/100 WBC (Bld) 36.9 % Critically low 43.0-75.0 [facility] Comment on above: Performed By: #### C BC #### [facility] [address] [place] [address] Dr. Deepak Greenfield Platelet mean volume (Bld) [Entitic vol] 10.2 fL Normal 9.5-13.5 [facility] Comment on above: Performed By: #### C BC #### [facility] [address] [place] [address] Dr. Deepak Greenfield PLT 248 103/ul Normal 150-450 [facility] Comment on above: Performed By: #### C BC #### [facility] [address] [place] [address] Dr. Deepak Greenfield RBC 3.82 106/ul Critically low 4.70-6.10 [facility] Comment on above: Performed By: #### C BC #### [facility] [address] [place] [address] Dr. Deepak Greenfield WBC 6.5 103/ul Normal 4.0-11.0 [facility] Comment on above: Performed By: #### C BC #### [facility] [address] [place] [address] Dr. Deepak Greenfield FERRITINon 04-22-2022 Ferritin [Mass/Vol] 152.0 ng/mL Normal 26.0-388.0 [facility] Comment on above: Performed By: #### M G, CMP #### [facility] [address] [place] [address] Dr. Deepak Greenfield IRONon 04-22-2022 Iron [Mass/Vol] 136.0 ug/dL Normal 65.0-175.0 [facility] Comment on above: Performed By: #### M G, CMP #### [facility] [address] [place] [address] Dr. Deepak Greenfield MAGNESIUMon 04-22-2022 Magnesium [Mass/Vol] 1.6 mg/dL Critically low 1.8-2.4 [facility] Comment on above: Performed By: #### I NFLUAB #### [facility] [address] [place] [address] Dr. Deepak Greenfield VITAMIN B12on 04-22-2022 Cobalamin (Vitamin B12) [Mass/Vol] 545.0 pg/mL Normal 193.0-986.0 [facility] Comment on above: Performed By: #### M G, CMP #### [facility] [address] [place] [address] Dr. Deepak Greenfield CBC AUTO DIFFon 03-19-2022 BASO # 0.0 103/ul Normal 0.0-0.1 [facility] Comment on above: Performed By: #### M G, CMP #### [facility] [address] [place] [address] Dr. Deepak Greenfield Basophils/100 WBC (Bld) 0.5 % Normal 0.2-2.0 [facility] Comment on above: Performed By: #### M G, CMP #### [facility] [address] [place] [address] Dr. Deepak Greenfield EO # 0.2 103/ul Normal 0.0-0.7 [facility] Comment on above: Performed By: #### M G, CMP #### [facility] [address] [place] [address] Dr. Deepak Greenfield Eosinophils/100 WBC (Bld) 2.0 % Normal 0.9-7.0 [facility] Comment on above: Performed By: #### M G, CMP #### [facility] [address] [place] [address] Dr. Deepak Greenfield Erythrocyte distribution width (RBC) [Ratio] 13.5 % Normal 11.0-15.0 [facility] Comment on above: Performed By: #### M G, CMP #### [facility] [address] [place] [address] Dr. Deepak Greenfield Hematocrit (Bld) [Volume fraction] 38.5 % Critically low 42.0-54.0 [facility] Comment on above: Performed By: #### M G, CMP #### [facility] [address] [place] [address] Dr. Deepak Greenfield Hemoglobin (Bld) [Mass/Vol] 12.6 g/dL Critically low 14.0-18.0 [facility] Comment on above: Performed By: #### M G, CMP #### [facility] [address] [place] [address] Dr. Deepak Greenfield IG # 0.02 10e3/ul Normal 0.00-0.03 [facility] Comment on above: Performed By: #### M G, CMP #### [facility] [address] [place] [address] Dr. Deepak Greenfield IG % 0.2 % Normal 0.0-0.5 [facility] Comment on above: Performed By: #### M G, CMP #### [facility] [address] [place] [address] Dr. Deepak Greenfield LYMPH # 3.1 103/ul Normal 1.2-3.8 [facility] Comment on above: Performed By: #### M G, CMP #### [facility] [address] [place] [address] Dr. Deepak Greenfield Lymphocytes/100 WBC (Bld) 36.2 % Normal 20.5-60.0 [facility] Comment on above: Performed By: #### M G, CMP #### [facility] [address] [place] [address] Dr. Deepak Greenfield MANUAL DIFF REQ NO Normal [facility] Comment on above: Performed By: #### M G, CMP #### [facility] [address] [place] [address] Dr. Deepak Greenfield MCH (RBC) [Entitic mass] 32.1 pg Normal 25.9-34.0 [facility] Comment on above: Performed By: #### M G, CMP #### [facility] [address] [place] [address] Dr. Deepak Greenfield MCHC (RBC) [Mass/Vol] 32.7 g/dL Normal 29.9-35.2 [facility] Comment on above: Performed By: #### M G, CMP #### [facility] [address] [place] [address] Dr. Deepak Greenfield MCV (RBC) [Entitic vol] 98.0 fL Critically high 80.0-94.0 [facility] Comment on above: Performed By: #### M G, CMP #### [facility] [address] [place] [address] Dr. Deepak Greenfield MONO # 0.9 103/ul Critically high 0.3-0.8 [facility] Comment on above: Performed By: #### M G, CMP #### [facility] [address] [place] [address] Dr. Deepak Greenfield Monocytes/100 WBC (Bld) 10.6 % Normal 1.7-12.0 [facility] Comment on above: Performed By: #### Karishma G, CMP #### [facility] [address] [place] [address] Dr. Deepak Greenfield NEUT # 4.3 103/ul Normal 1.4-6.5 [facility] Comment on above: Performed By: #### Karishma House, CMP #### [facility] [address] [address] [address] Deepak Greenfield Neutrophils/100 WBC (Bld) 50.5 % Normal 43.0-75.0 [facility] Comment on above: Performed By: #### Karishma House, CMP #### [facility] [address] [place] [address] Dr. Deepak Greenfield Platelet mean volume (Bld) [Entitic vol] 9.9 fL Normal 9.5-13.5 [facility] Comment on above: Performed By: #### Karishma House, CMP #### [facility] [address] [place] [address] Dr. Deepak Greenfield PLT 263 103/ul Normal 150-450 [facility] Comment on above: Performed By: #### Karishma House, CMP #### [facility] [address] [place] [address] Dr. Deepak Greenfield RBC 3.93 106/ul Critically low 4.70-6.10 [facility] Comment on above: Performed By: #### Karishma House, CMP #### [facility] [address] [place] [address] Dr. Deeapk Greenfield WBC 8.6 103/ul Normal 4.0-11.0 [facility] Comment on above: Performed By: #### Karishma House, CMP #### [facility] [address] [place] [address] Dr. Deepak Greenfield MAGNESIUMon 03-19-2022 Magnesium [Mass/Vol] 1.5 mg/dL Critically low 1.8-2.4 [facility] Comment on above: Performed By: #### Karishma House, CMP #### [facility] [address] [place], [place] [id number] Dr. Deepak Greenfield PROF 14(COMP METB)on 022 Albumin [Mass/Vol] 3.4 g/dL Normal 3.4-5.0 [facility] Comment on above: Performed By: #### M G, CMP #### [facility] [address] [place] [address] Dr. Deepak Greenfield Albumin/Globulin [Mass ratio] 0.9 {ratio} Normal [facility] Comment on above: Performed By: #### M G, CMP #### [facility] [address] [place] [address] Dr. Deepak Greenfield ALP [Catalytic activity/Vol] 47 U/L Normal 46-116 [facility] Comment on above: Performed By: #### M G, CMP #### [facility] [address] [place] [address] Dr. Deepak Greenfield ALT [Catalytic activity/Vol] 48 U/L Normal 16-63 [facility] Comment on above: Performed By: #### M G, CMP #### [facility] [address] [place] [address] Dr. Deepak Greenfield Anion gap [Moles/Vol] 9.5 mmol/L Normal [facility] Comment on above: Performed By: #### M G, CMP #### [facility] [address] [place] [address] Dr. Deepak Greenfield AST [Catalytic activity/Vol] 30 U/L Normal 15-37 [facility] Comment on above: Performed By: #### M G, CMP #### [facility] [address] [place] [address] Dr. Deepak Greenfield Bilirubin [Mass/Vol] 0.2 mg/dL Normal 0.2-1.0 [facility] Comment on above: Performed By: #### M G, CMP #### [facility] [address] [place] [address] Dr. Deepak Greenfield Calcium [Mass/Vol] 8.7 mg/dL Normal 8.5-10.1 [facility] Comment on above: Performed By: #### M G, CMP #### [facility] [address] [address] [address] Deepak Greenfield Chloride [Moles/Vol] 105 mmol/L Normal 98-107 [facility] Comment on above: Performed By: #### M G, CMP #### [facility] [address] [address] [address] Deepak Greenfield CO2 [Moles/Vol] 32.6 mmol/L Critically high 21.0-32.0 [facility] Comment on above: Performed By: #### M G, CMP #### [facility] [address] [address] [address] Deepak Greenfield Creatinine [Mass/Vol] 0.70 mg/dL Normal 0.70-1.30 [facility] Comment on above: Performed By: #### M G, CMP #### [facility] [address] [place] [address] Dr. Deepak Greenfield EGFR-AF UGANDAN >60 Normal >=60 [facility] Comment on above: Performed By: #### M G, CMP #### [facility] [address] [place] [address] Dr. Deepak Greenfield EGFR-NON AF UGANDAN >60 Normal >=60 [facility] Comment on above: Performed By: #### M G, CMP #### [facility] [address] [place] [address] Dr. Deepak Greenfield Globulin (S) [Mass/Vol] 3.8 g/dL Normal [facility] Comment on above: Performed By: #### M G, CMP #### [facility] [address] [place] [address] Dr. Deepak Greenfield Glucose [Mass/Vol] 98 mg/dL Normal 74-106 [facility] Comment on above: Performed By: #### M G, CMP #### [facility] [address] [address] [address] Deepak Greenfield Potassium [Moles/Vol] 4.1 mmol/L Normal 3.5-5.1 [facility] Comment on above: Performed By: #### M G, CMP #### [facility] [address] [address] [address] Deepak Greenfield Protein [Mass/Vol] 7.2 g/dL Normal 6.4-8.2 [facility] Comment on above: Performed By: #### M G, CMP #### [facility] [address] [place] [address] Dr. Deepak Greenfield Sodium [Moles/Vol] 143 mmol/L Normal 136-145 [facility] Comment on above: Performed By: #### M G, CMP #### [facility] [address] [place] [address] Dr. Deepak Greenfield Urea nitrogen [Mass/Vol] 10.0 mg/dL Normal 7.0-18.0 [facility] Comment on above: Performed By: #### M G, CMP #### [facility] [address] [place] [address] Dr. Deepak Greenfield Urea nitrogen/Creatinine [Mass ratio] 14.3 mg/mg Normal [facility] Comment on above: Performed By: #### Karishma House, CMP #### [facility] [address] [place] [address] Dr. Deepak Greenfield VITAMIN D 25 OHon 03-19-2022 VIT D 25-OH 67.5 ng/mL Normal [facility] Comment on above: Performed By: #### Karishma G, CMP #### [facility] [address] [place] [address] Dr. Deepak Greenfield VIT D RANGES SEE BELOW Normal [facility] Comment on above: Result Comment: <20 ng/mL Vit D deficient 20 - <30 ng/mL Vit D insufficient 30 - 100 ng/mL Vit D sufficient >100 ng/mL Potential Toxicity Performed By: #### M G, CMP #### [facility] [address] [place] [address] Dr. Deepak Greenfield AMMONIAon 03-10-2022 Ammonia (P) [Moles/Vol] 36 umol/L Critically high [facility] Comment on above: Performed By: #### C BC #### [facility] [address] [place] [address] Dr. Deepak Greenfield DEPAKENE/ VALPROIC ACIDon DEPAKENE 93.5 ug/ml Normal 50.0-100.0 [facility] Comment on above: Performed By: #### B MP #### [facility] [address] [place] [address] Dr. Deepak Greenfield BNPon 01-24-2022 Natriuretic peptide B (Bld) [Mass/Vol] 183.0 pg/mL Normal <=450.0 [facility] Comment on above: Performed By: #### M G, CMP #### [facility] [address] [place] [address] Dr. Deepak Greenfield CBC AUTO DIFFon 01-24-2022 BASO # 0.0 103/ul Normal 0.0-0.1 [facility] Comment on above: Performed By: #### C VDTBH #### [facility] [address] [place] [address] Dr. Deepak Greenfield Basophils/100 WBC (Bld) 0.3 % Normal 0.2-2.0 [facility] Comment on above: Performed By: #### C VDTBH #### [facility] [address] [place] [address] Dr. Deepak Greenfield EO # 0.1 103/ul Normal 0.0-0.7 [facility] Comment on above: Performed By: #### C VDTBH #### [facility] [address] [place] [address] Dr. Deepak Greenfield Eosinophils/100 WBC (Bld) 0.4 % Critically low 0.9-7.0 [facility] Comment on above: Performed By: #### C VDTBH #### [facility] [address] [place] [address] Dr. Deepak Greenfield Erythrocyte distribution width (RBC) [Ratio] 13.6 % Normal 11.0-15.0 [facility] Comment on above: Performed By: #### C VDTBH #### [facility] [address] [place] [address] Dr. Deepak Greenfield Hematocrit (Bld) [Volume fraction] 39.3 % Critically low 42.0-54.0 [facility] Comment on above: Performed By: #### C VDTBH #### [facility] [address] [address] [address] Deepak Greenfield Hemoglobin (Bld) [Mass/Vol] 12.6 g/dL Critically low 14.0-18.0 [facility] Comment on above: Performed By: #### C VDTBH #### [facility] [address] [address] [address] Deepak Greenfield IG # 0.04 10e3/ul Critically high 0.00-0.03 [facility] Comment on above: Performed By: #### C VDTBH #### [facility] [address] [address] [address] Deepak Greenfield IG % 0.3 % Normal 0.0-0.5 [facility] Comment on above: Performed By: #### C VDTBH #### [facility] [address] [address] [address] Deepak Greenfield LYMPH # 2.4 103/ul Normal 1.2-3.8 [facility] Comment on above: Performed By: #### C VDTBH #### [facility] [address] [address] [address] Deepak Greenfield Lymphocytes/100 WBC (Bld) 16.6 % Critically low 20.5-60.0 [facility] Comment on above: Performed By: #### C VDTBH #### [facility] [address] [address] [address] Deepak Greenfield MANUAL DIFF REQ NO Normal [facility] Comment on above: Performed By: #### C VDTBH #### [facility] [address] [address] [address] Deepak Greenfield MCH (RBC) [Entitic mass] 32.0 pg Normal 25.9-34.0 [facility] Comment on above: Performed By: #### C VDTBH #### [facility] [address] [place] [address] Dr. Deepak Greenfield MCHC (RBC) [Mass/Vol] 32.1 g/dL Normal 29.9-35.2 [facility] Comment on above: Performed By: #### C VDTBH #### [facility] [address] [address] [address] Deepak Greenfield MCV (RBC) [Entitic vol] 99.7 fL Critically high 80.0-94.0 [facility] Comment on above: Performed By: #### C VDTBH #### [facility] [address] [place] [address] Dr. Deepak Greenfield MONO # 1.4 103/ul Critically high 0.3-0.8 [facility] Comment on above: Performed By: #### C VDTBH #### [facility] [address] [place] [address] Dr. Deepak Greenfield Monocytes/100 WBC (Bld) 9.8 % Normal 1.7-12.0 [facility] Comment on above: Performed By: #### C VDTBH #### [facility] [address] [place] [address] Dr. Deepak Greenfield NEUT # 10.7 103/ul Critically high 1.4-6.5 [facility] Comment on above: Performed By: #### C VDTBH #### [facility] [address] [place] [address] Dr. Deepak Greenfield Neutrophils/100 WBC (Bld) 72.6 % Normal 43.0-75.0 [facility] Comment on above: Performed By: #### C VDTBH #### [facility] [address] [place] [address] Dr. Deepak Greenfield Platelet mean volume (Bld) [Entitic vol] 10.4 fL Normal 9.5-13.5 [facility] Comment on above: Performed By: #### C VDTBH #### [facility] [address] [place] [address] Dr. Deepak Greenfield PLT 280 103/ul Normal 150-450 [facility] Comment on above: Performed By: #### C VDTBH #### [facility] [address] [place] [address] Dr. Deepak Greenfield RBC 3.94 106/ul Critically low 4.70-6.10 [facility] Comment on above: Performed By: #### C VDTBH #### [facility] [address] [place] [address] Dr. Deepak Greenfield WBC 14.7 103/ul Critically high 4.0-11.0 [facility] Comment on above: Performed By: #### C VDTBH #### [facility] [address] [place] [address] Dr. Deepak Greenfield CULTURE BLOODon 01-24-2022 Microscopic examination of blood, culture Culture Observations: No growth at 5 days. Normal [facility] Comment on above: Performed By: #### C BC #### [facility] [address] [place] [address] Dr. Deepak Greenfield Microscopic examination of blood, culture Culture Observations: No growth at 5 days. Normal [facility] Comment on above: Performed By: #### C BC #### [facility] [address] [place] [address] Dr. Deepak Greenfield Covid-19 PCR ([facility])on SARS-CoV-2 (COVID-19) RNA CINDY+probe Ql (Unsp spec) Not detected Normal NOT DETECTED [facility] Comment on above: Result Comment: [...] for this test is supported by the Tax Revenue Officer of Health and Human Service's declaration that [...] used). Performed By: #### I NFLUAB #### [facility] [address] [place] [address] Dr. Deepak Greenfield LACTATE/LACTIC ACIDon 2021 Lactate [Moles/Vol] 1.7 mmol/L Normal 0.4-1.9 [facility] Comment on above: Performed By: #### M G, CMP #### [facility] [address] [place] [address] Dr. Deepak Greenfield PROF 14(COMP METB)on 022 Albumin [Mass/Vol] 3.2 g/dL Critically low 3.4-5.0 [facility] Comment on above: Performed By: #### M G, CMP #### [facility] [address] [place] [address] Dr. Deepak Greenfield Albumin/Globulin [Mass ratio] 0.7 {ratio} Normal [facility] Comment on above: Performed By: #### M G, CMP #### [facility] [address] [place] [address] Dr. Deepak Greenfield ALP [Catalytic activity/Vol] 49 U/L Normal 46-116 [facility] Comment on above: Performed By: #### M G, CMP #### [facility] [address] [place] [address] Dr. Deepak Greenfield ALT [Catalytic activity/Vol] 41 U/L Normal 16-63 [facility] Comment on above: Performed By: #### M G, CMP #### [facility] [address] [place] [address] Dr. Deepak Greenfield Anion gap [Moles/Vol] 11.1 mmol/L Normal [facility] Comment on above: Performed By: #### M G, CMP #### [facility] [address] [place] [address] Dr. Deepak Greenfield AST [Catalytic activity/Vol] 29 U/L Normal 15-37 [facility] Comment on above: Performed By: #### M G, CMP #### [facility] [address] [place] [address] Dr. Deepak Greenfield Bilirubin [Mass/Vol] 0.5 mg/dL Normal 0.2-1.0 [facility] Comment on above: Performed By: #### M G, CMP #### [facility] [address] [address] [address] Deepak Greenfield Calcium [Mass/Vol] 9.1 mg/dL Normal 8.5-10.1 [facility] Comment on above: Performed By: #### M G, CMP #### [facility] [address] [address] [address] Deepak Greenfield Chloride [Moles/Vol] 108 mmol/L Critically high 98-107 [facility] Comment on above: Performed By: #### M G, CMP #### [facility] [address] [place] [address] Dr. Deepak Greenfield CO2 [Moles/Vol] 25.7 mmol/L Normal 21.0-32.0 [facility] Comment on above: Performed By: #### M G, CMP #### [facility] [address] [place] [address] Dr. Deepak Greenfield Creatinine [Mass/Vol] 0.89 mg/dL Normal 0.70-1.30 [facility] Comment on above: Performed By: #### M G, CMP #### [facility] [address] [place] [address] Dr. Deepak Greenfield EGFR-AF UGANDAN >60 Normal >=60 [facility] Comment on above: Performed By: #### M G, CMP #### [facility] [address] [place] [address] Dr. Deepak Greenfield EGFR-NON AF UGANDAN >60 Normal >=60 [facility] Comment on above: Performed By: #### M G, CMP #### [facility] [address] [place] [address] Dr. Deepak Greenfield Globulin (S) [Mass/Vol] 4.5 g/dL Normal [facility] Comment on above: Performed By: #### M G, CMP #### [facility] [address] [place] [address] Dr. Deepak Greenfield Glucose [Mass/Vol] 178 mg/dL Critically high 74-106 [facility] Comment on above: Performed By: #### M G, CMP #### [facility] [address] [address] [address] Deepak Greenfield Potassium [Moles/Vol] 3.8 mmol/L Normal 3.5-5.1 [facility] Comment on above: Performed By: #### M G, CMP #### [facility] [address] [address] [address] Deepak Greenfield Protein [Mass/Vol] 7.7 g/dL Normal 6.4-8.2 [facility] Comment on above: Performed By: #### M G, CMP #### [facility] [address] [address] [address] Deepak Greenfield Sodium [Moles/Vol] 141 mmol/L Normal 136-145 [facility] Comment on above: Performed By: #### M G, CMP #### [facility] [address] [address] [address] Deepak Greenfield Urea nitrogen [Mass/Vol] 16.0 mg/dL Normal 7.0-18.0 [facility] Comment on above: Performed By: #### M G, CMP #### [facility] [address] [address] [address] Deepak Greenfield Urea nitrogen/Creatinine [Mass ratio] 18.0 mg/mg Normal [facility] Comment on above: Performed By: #### M G, CMP #### [facility] [address] [address] [address] Deepak Greenfield TROPONIN, HIGH SENSITIVITYon 01-24-2022 HSTROP 6.4 pg/mL Normal 4.0-76.1 [facility] Comment on above: Result Comment: CUT- OFF POINTS HAVE BEEN ESTABLISHED BASED ON THE FOURTH UNIVERSAL DEFINITIONS OF MYOCARDIAL INFARCTION. THE UPPER REFERENCE LIMIT (URL) OF TROPONIN, DEFINED THE 99TH PERCENTILE OF cTnI DISTRIBUTION IN A REFERENCE POPULATION, HAS BEEN CONFIRMED THE DECISION THRESHOLD FOR ME DIAGNOSIS. Performed By: #### M G, CMP #### [facility] [address] [address] [address] Deepak Greenfield XR CHEST 1 Von [...] ANICETO CROCKER Date: 2022-01-24 15:28 Normal [facility] UA RANDOM W/MICROSCOPICon BACTERIA NONE SEEN Normal NONE SEEN [facility] Comment on above: Performed By: #### C VDTBH #### [facility] [address] [place] [address] Dr. Deepak Greenfield Bilirubin Ql (U) Negative Normal NEGATIVE [facility] Comment on above: Performed By: #### C VDTBH #### [facility] [address] [place] [address] Dr. Deepak Greenfield CAST NONE SEEN Normal NONE SEEN [facility] Comment on above: Performed By: #### C VDTBH #### [facility] [address] [place] [address] Dr. Deepak Greenfield Clarity (U) CLEAR Normal CLEAR [facility] Comment on above: Performed By: #### C VDTBH #### [facility] [address] [place] [address] Dr. Deepak Greenfield Color (U) YELLOW Normal YELLOW [facility] Comment on above: Performed By: #### C VDTBH #### [facility] [address] [place] [address] Dr. Deepak Greenfield Crystals LM Nom (Urine sed) NONE SEEN Normal NONE SEEN [facility] Comment on above: Performed By: #### C VDTBH #### [facility] [address] [place] [address] Dr. Deepak Greenfield Epithelial cells LM Ql (Urine sed) RARE Normal NONE SEEN /RARE [facility] Comment on above: Performed By: #### C VDTBH #### [facility] [address] [place] [address] Dr. Deepak Greenfield Glucose Ql (U) Negative Normal NEGATIVE [facility] [place] Comment on above: Performed By: #### C VDTBH #### [facility] [address] [place] [address] Dr. Deepak Greenfield Hemoglobin Ql (U) Negative Normal NEGATIVE [facility] Comment on above: Performed By: #### C VDTBH #### [facility] [address] [address] [address] Deepak Greenfield Ketones Ql (U) 15 mg/dl Abnormal NEGATIVE [facility] [place] Comment on above: Performed By: #### C VDTBH #### [facility] [address] [place] [address] Dr. Deepak Greenfield LEUKOCYTES Negative Normal NEGATIVE [facility] Comment on above: Performed By: #### C VDTBH #### [facility] [address] [place] [address] Dr. Deepak Greenfield MUCOUS NONE SEEN Normal NONE SEEN [facility] Comment on above: Performed By: #### C VDTBH #### [facility] [address] [place] [address] Dr. Deepak Greenfield Nitrite Ql (U) Negative Normal NEGATIVE [facility] Comment on above: Performed By: #### C VDTBH #### [facility] [address] [place] [address] Dr. Deepak Greenfield pH (U) 6.0 [pH] Normal 5-9 [facility] Comment on above: Performed By: #### C VDTBH #### [facility] [address] [place] [address] Dr. Deepak Greenfield RBC 0-2 Normal 0-2 [facility] Comment on above: Performed By: #### C VDTBH #### [facility] [address] [place] [address] Dr. Deepak Greenfield SPEC GRAVITY 1.020 Normal 1.005-<=1.025 [facility] Comment on above: Performed By: #### C VDTBH #### [facility] [address] [place] [address] Dr. Deepak Greenfield UA PROTEIN Negative Normal NEGATIVE/ TRACE [facility] Comment on above: Performed By: #### C VDTBH #### [facility] [address] [place] [address] Dr. Deepak Greenfield Urobilinogen Qn (U) 0.2 {Ottoniel'U}/dL Normal 0.2 - 1. 0 [facility] Comment on above: Performed By: #### C VDTBH #### [facility] [address] [place] [address] Dr. Deepak Greenfield WBC NONE SEEN Normal NONE SEEN [facility] Comment on above: Performed By: #### C VDTBH #### [facility] [address] [place] [address] Dr. Deepak Greenfield ALBUMINon 01-12-2022 Albumin [Mass/Vol] 3.4 g/dL Normal 3.4-5.0 [facility] Comment on above: Performed By: #### C VDTBH #### [facility] [address] [place] [address] Dr. Deepak Greenfield ALKALINE PHOSPHAon ALP [Catalytic activity/Vol] 46 U/L Normal 46-116 [facility] Comment on above: Performed By: #### C VDTBH #### [facility] [address] [place] [address] Dr. Deepak Greenfiedl AMMONIAon 01-12-2022 Ammonia (P) [Moles/Vol] 93 umol/L Critically high 11-32 [facility] Comment on above: Performed By: #### I NFLUAB #### [facility] [address] [place] [address] Dr. Deepak Greenfield BILIRUBIN CONJUGATED (DIRECT )on 01-12-2022 BILI, CONJUGATED 0.1 mg/dL Normal 0.0-0.2 [facility] Comment on above: Performed By: #### C VDTBH #### [facility] [address] [place] [address] Dr. Deepak Greenfield BILIRUBIN TOTALon 01-12-2022 Bilirubin [Mass/Vol] 0.4 mg/dL Normal 0.2-1.0 [facility] Comment on above: Performed By: #### C VDTBH #### [facility] [address] [place] [address] Dr. Deepak Greenfield CBC AUTO DIFFon 01-12-2022 BASO # 0.0 103/ul Normal 0.0-0.1 [facility] Comment on above: Performed By: #### M G, CMP #### [facility] [address] [address] [address] Deepak Greenfield Basophils/100 WBC (Bld) 0.3 % Normal 0.2-2.0 [facility] Comment on above: Performed By: #### M G, CMP #### [facility] [address] [place] [address] Dr. Deepak Greenfield EO # 0.1 103/ul Normal 0.0-0.7 [facility] Comment on above: Performed By: #### M G, CMP #### [facility] [address] [place] [address] Dr. Deepak Greenfield Eosinophils/100 WBC (Bld) 1.3 % Normal 0.9-7.0 [facility] Comment on above: Performed By: #### M G, CMP #### [facility] [address] [place] [address] Dr. Deepak Greenfield Erythrocyte distribution width (RBC) [Ratio] 14.2 % Normal 11.0-15.0 [facility] Comment on above: Performed By: #### M G, CMP #### [facility] [address] [place] [address] Dr. Deepak Greenfield Hematocrit (Bld) [Volume fraction] 40.4 % Critically low 42.0-54.0 [facility] Comment on above: Performed By: #### M G, CMP #### [facility] [address] [place] [address] Dr. Deepak Greenfield Hemoglobin (Bld) [Mass/Vol] 13.1 g/dL Critically low 14.0-18.0 [facility] Comment on above: Performed By: #### M G, CMP #### [facility] [address] [place] [address] Dr. Deepak Greenfield IG # 0.01 10e3/ul Normal 0.00-0.03 [facility] Comment on above: Performed By: #### M G, CMP #### [facility] [address] [address] [address] Deepak Greenfield IG % 0.1 % Normal 0.0-0.5 [facility] Comment on above: Performed By: #### M G, CMP #### [facility] [address] [address] [address] Deepak Greenfield LYMPH # 3.3 103/ul Normal 1.2-3.8 [facility] Comment on above: Performed By: #### M G, CMP #### [facility] [address] [address] [address] Deepak Greenfield Lymphocytes/100 WBC (Bld) 42.3 % Normal 20.5-60.0 [facility] Comment on above: Performed By: #### M G, CMP #### [facility] [address] [place] [address] Dr. Deepak Greenfield MANUAL DIFF REQ NO Normal [facility] Comment on above: Performed By: #### M G, CMP #### [facility] [address] [place] [address] Dr. Deepak Greenfield MCH (RBC) [Entitic mass] 32.4 pg Normal 25.9-34.0 [facility] Comment on above: Performed By: #### M G, CMP #### [facility] [address] [place] [address] Dr. Deepak Greenfield MCHC (RBC) [Mass/Vol] 32.4 g/dL Normal 29.9-35.2 [facility] Comment on above: Performed By: #### M G, CMP #### [facility] [address] [place] [address] Dr. Deepak Greenfield MCV (RBC) [Entitic vol] 100.0 fL Critically high 80.0-94.0 [facility] Comment on above: Performed By: #### M G, CMP #### [facility] [address] [place] [address] Dr. Deepak Greenfield MONO # 0.6 103/ul Normal 0.3-0.8 [facility] Comment on above: Performed By: #### M G, CMP #### [facility] [address] [address] [address] Deepak Greenfield Monocytes/100 WBC (Bld) 7.6 % Normal 1.7-12.0 [facility] Comment on above: Performed By: #### M G, CMP #### [facility] [address] [address] [address] Deepak Greenfield NEUT # 3.8 103/ul Normal 1.4-6.5 [facility] Comment on above: Performed By: #### M G, CMP #### [facility] [address] [place] [address] Dr. Deepak Greenfield Neutrophils/100 WBC (Bld) 48.4 % Normal 43.0-75.0 [facility] Comment on above: Performed By: #### M G, CMP #### [facility] [address] [place] [address] Dr. Deepak Greenfield Platelet mean volume (Bld) [Entitic vol] 9.6 fL Normal 9.5-13.5 [facility] Comment on above: Performed By: #### M G, CMP #### [facility] [address] [place] [address] Dr. Deepak Greenfield PLT 315 103/ul Normal 150-450 [facility] Comment on above: Performed By: #### M G, CMP #### [facility] [address] [address] [address] Deepak Greenfield RBC 4.04 106/ul Critically low 4.70-6.10 [facility] Comment on above: Performed By: #### M G, CMP #### [facility] [address] [address] [address] Deepak Greenfield WBC 7.9 103/ul Normal 4.0-11.0 [facility] Comment on above: Performed By: #### M G, CMP #### [facility] [address] [place] [address] Dr. Deepak Greenfield DEPAKENE/VALPROICon 01-13-20 22 DEPAKENE 89.7 ug/ml Normal 50.0-100.0 [facility] Comment on above: Performed By: #### I NFLUAB #### [facility] [address] [address] [address] Deepak Greenfield PROF CHEM 8 (BAS METB)on Anion gap [Moles/Vol] 12.9 mmol/L Normal [facility] Comment on above: Performed By: #### I NFLUAB #### [facility] [address] [place] [address] Dr. Deepak Greenfield Calcium [Mass/Vol] 8.8 mg/dL Normal 8.5-10.1 [facility] Comment on above: Performed By: #### I NFLUAB #### [facility] [address] [place] [address] Dr. Deepak Greenfield Chloride [Moles/Vol] 103 mmol/L Normal 98-107 [facility] Comment on above: Performed By: #### I NFLUAB #### [facility] [address] [place] [address] Dr. Deepak Greenfield CO2 [Moles/Vol] 28.1 mmol/L Normal 21.0-32.0 [facility] Comment on above: Performed By: #### I NFLUAB #### [facility] [address] [place] [address] Dr. Deepak Greenfield Creatinine [Mass/Vol] 0.58 mg/dL Critically low 0.70-1.30 [facility] Comment on above: Performed By: #### I NFLUAB #### [facility] [address] [place] [address] Dr. Deepak Greenfield EGFR-AF UGANDAN >60 Normal >=60 [facility] Comment on above: Performed By: #### I NFLUAB #### [facility] [address] [place] [address] Dr. Deepak Greenfield EGFR-NON AF UGANDAN >60 Normal >=60 [facility] Comment on above: Performed By: #### I NFLUAB #### [facility] [address] [place] [address] Dr. Deepak Greenfield Glucose [Mass/Vol] 117 mg/dL Critically high 74-106 [facility] Comment on above: Performed By: #### I NFLUAB #### [facility] [address] [place] [address] Dr. Deepak Greenfield Potassium [Moles/Vol] 4.0 mmol/L Normal 3.5-5.1 [facility] Comment on above: Performed By: #### I NFLUAB #### [facility] [address] [place] [address] Dr. Deepak Greenfield Sodium [Moles/Vol] 140 mmol/L Normal 136-145 [facility] Comment on above: Performed By: #### I NFLUAB #### [facility] [address] [place] [address] Dr. Deepak Greenfield Urea nitrogen [Mass/Vol] 7.0 mg/dL Normal 7.0-18.0 [facility] Comment on above: Performed By: #### I NFLUAB #### [facility] [address] [place] [address] Dr. Deepak Greenfield Urea nitrogen/Creatinine [Mass ratio] 12.1 mg/mg Normal [facility] Comment on above: Performed By: #### I NFLUAB #### [facility] [address] [place] [address] Dr. Deepak Greenfield SGOTon 01-12-2022 AST [Catalytic activity/Vol] 31 U/L Normal 15-37 [facility] Comment on above: Performed By: #### C VDTBH #### [facility] [address] [place] [address] Dr. [facility] ALT [Catalytic activity/Vol] 48 U/L Normal 16-63 [facility] Comment on above: Performed By: #### C VDTBH #### [facility] [address] [place] [address] Dr. Deepak Cardoso PROTEIN SERUMon 01-12-2022 Protein [Mass/Vol] 7.3 g/dL Normal 6.4-8.2 [facility] Comment on above: Performed By: #### B MP #### [facility] [address] [place], [place] [address] Dr. Deepak Greenfield XR CHEST 2 Von [...] by: ANICETO CROCKER Date: 2022-01-06 16:15 Normal [facility] Progress Noteson 12-16-2021 Qualitative Executive Researcher Authentication Interface Message Text ----- Thursday, December 16, 2021 at 12:03:50 PM ----- ----- Provider: [id number]ist -- Clinic: [place] ----- [facility], Pt is ready for tx. Pt presented for dental evaluation for future OR. Caregiver in the room. Patient is non-verbal. Severe intellectual disability, seizure disorder Caregiver stated patient is not pain and no complaining. Radiograph taken today: no possible due to patient behavior Case requested for OR. Guardian mother Katia Lopez. [phone]. [facility] [phone] [id number] ( [facility] pt's appt) AVS printed and handed flyer for step by step instruction of OR process to Caregiver exam By: Elliott Ham [facility]. OR ----- Signed on Thursday, December 16, 2021 at 12:18:18 PM ----- ----- Provider: [id number] Heriberto Adams DDS -- Clinic: [place] ----- Normal [facility] [employer] [facility] XR DEXA BONE DENSITYon 11-20 XR [...] MARGARITO DAVIES Date: 2021-11-20 11:42 Normal [facility] US SCROTUMon 11-14-2021 US SCROTUM [...] KRISTIAN BILLINGS Date: 2021-11-14 07:10 Normal [facility] AMMONIAon 10-31-2021 Ammonia (P) [Moles/Vol] 88 umol/L Critically high - [facility] Comment on above: Performed By: #### M G, CMP #### [facility] [address] [place] [address] Dr. Deepak Greenfield AMMONIAon 10-30-2021 Ammonia (P) [Moles/Vol] 103 umol/L Critically high 11-32 [facility] Comment on above: Result Comment: SPEC IMEN SLIGHTLY HEMOLYZED MAY AFFECT AMM RESULT Performed By: #### I NFLUAB #### [facility] [address] [place] [address] Dr. Deepak Greenfield WOUND CULTUREon 10-23-2021 Bacteria identified Aer cx Nom (Unsp spec) Final report Normal [facility] Comment on above: Performed By: #### C XWND #### [facility] [address] [place] [address] Dr. Deepak Gerenfield Result 1 Comment Normal [facility] Comment on above: Result Comment: No g rowth in 36 - 48 hours. Performed By: #### C XWND #### [facility] [address] [place] [address] Dr. Deepak Greenfield WOUND CULTUREon 10-02-2021 Bacteria identified Aer cx Nom (Unsp spec) Final report Normal [facility] Comment on above: Performed By: #### A MM #### [facility] [address] [place] [address] Dr. Deepak Greenfield Result 1 Mixed skin omid Normal [facility] Comment on above: Performed By: #### A MM #### [facility] [address] [place] [address] Dr. Deepak Greenfield AMYLASEon 09-22-2021 Amylase [Catalytic activity/Vol] 24 U/L Critically low 25-115 [facility] Comment on above: Performed By: #### C BC #### [facility] [address] [place] [address] Dr. Deepak Greenfield CBC AUTO DIFFon 09-22-2021 BASO # 0.0 103/ul Normal 0.0-0.1 [facility] Comment on above: Performed By: #### C VDTBH #### [facility] [address] [place] [address] Dr. Deepak Greenfield Basophils/100 WBC (Bld) 0.5 % Normal 0.2-2.0 [facility] Comment on above: Performed By: #### C VDTBH #### [facility] [address] [place] [address] Dr. Deepak Greenfield EO # 0.1 103/ul Normal 0.0-0.7 [facility] Comment on above: Performed By: #### C VDTBH #### [facility] [address] [place] [address] Dr. Deepak Greenfield Eosinophils/100 WBC (Bld) 1.3 % Normal 0.9-7.0 [facility] Comment on above: Performed By: #### C VDTBH #### [facility] [address] [place] [address] Dr. Deepak Greenfield Erythrocyte distribution width (RBC) [Ratio] 13.9 % Normal 11.0-15.0 [facility] Comment on above: Performed By: #### C VDTBH #### [facility] [address] [place] [address] Dr. Deepak Greenfield Hematocrit (Bld) [Volume fraction] 40.0 % Critically low 42.0-54.0 [facility] Comment on above: Performed By: #### C VDTBH #### [facility] [address] [place] [address] Dr. Deepak Greenfield Hemoglobin (Bld) [Mass/Vol] 13.0 g/dL Critically low 14.0-18.0 [facility] Comment on above: Performed By: #### C VDTBH #### [facility] [address] [place] [address] Dr. Deepak Greenfield IG # 0.01 10e3/ul Normal 0.00-0.03 [facility] Comment on above: Performed By: #### C VDTBH #### [facility] [address] [place] [address] Dr. Deepak Greenfield IG % 0.2 % Normal 0.0-0.5 [facility] Comment on above: Performed By: #### C VDTBH #### [facility] [address] [place] [address] Dr. Deepak Greenfield LYMPH # 3.0 103/ul Normal 1.2-3.8 [facility] Comment on above: Performed By: #### C VDTBH #### [facility] [address] [place] [address] Dr. Deepak Greenfield Lymphocytes/100 WBC (Bld) 47.9 % Normal 20.5-60.0 [facility] Comment on above: Performed By: #### C VDTBH #### [facility] [address] [place] [address] Dr. Deepak Greenfield MANUAL DIFF REQ NO Normal [facility] Comment on above: Performed By: #### C VDTBH #### [facility] [address] [place] [address] Dr. Deepak Greenfield MCH (RBC) [Entitic mass] 32.9 pg Normal 25.9-34.0 [facility] Comment on above: Performed By: #### C VDTBH #### [facility] [address] [place] [address] Dr. Deepak Greenfield MCHC (RBC) [Mass/Vol] 32.5 g/dL Normal 29.9-35.2 [facility] Comment on above: Performed By: #### C VDTBH #### [facility] [address] [place] [address] Dr. Deepak Greenfield MCV (RBC) [Entitic vol] 101.3 fL Critically high 80.0-94.0 [facility] Comment on above: Performed By: #### C VDTBH #### [facility] [address] [place] [address] Dr. Deepak Greenfield MONO # 0.7 103/ul Normal 0.3-0.8 [facility] Comment on above: Performed By: #### C VDTBH #### [facility] [address] [place] [address] Dr. Deepak Greenfield Monocytes/100 WBC (Bld) 10.3 % Normal 1.7-12.0 [facility] Comment on above: Performed By: #### C VDTBH #### [facility] [address] [place] [address] Dr. Deepak Greenfield NEUT # 2.5 103/ul Normal 1.4-6.5 [facility] Comment on above: Performed By: #### C VDTBH #### [facility] [address] [address] [address] Deepak Greenfield Neutrophils/100 WBC (Bld) 39.8 % Critically low 43.0-75.0 [facility] Comment on above: Performed By: #### C VDTBH #### [facility] [address] [address] [address] Deepak Greenfield Platelet mean volume (Bld) [Entitic vol] 10.1 fL Normal 9.5-13.5 [facility] Comment on above: Performed By: #### C VDTBH #### [facility] [address] [address] [address] Deepak Greenfield PLT 311 103/ul Normal 150-450 [facility] Comment on above: Performed By: #### C VDTBH #### [facility] [address] [address] [address] Deepak Greenfield RBC 3.95 106/ul Critically low 4.70-6.10 [facility] Comment on above: Performed By: #### C VDTBH #### [facility] [id number] Deepak Greenfield WBC 6.3 103/ul Normal 4.0-11.0 [facility] Comment on above: Performed By: #### C VDTBH #### [facility] [address] ABD/PELV W CONon [...] JAMIE ALICIA Date: 2021-09-22 02:34 Normal [facility] CT HEAD WO CONon 09-22-2021 [...] BRITTON FONTENOT Date: 2021-09-22 01:13 Normal [facility] LIPASEon 09-22-2021 Lipase [Catalytic activity/Vol] 28.0 U/L Critically low 73.0-393.0 [facility] Comment on above: Performed By: #### C BC #### [facility] [address] [place] [address] Dr. Deepak Greenfield PROF 14(COMP METB)on 022 Albumin [Mass/Vol] 3.3 g/dL Critically low 3.4-5.0 [facility] Comment on above: Performed By: #### B MP #### [facility] [address] [place] [address] Dr. Deepak Greenfield Albumin/Globulin [Mass ratio] 0.9 {ratio} Normal [facility] Comment on above: Performed By: #### B MP #### [facility] [address] [place] [address] Dr. Deepak Greenfield ALP [Catalytic activity/Vol] 38 U/L Critically low 46-116 [facility] Comment on above: Performed By: #### B MP #### [facility] [address] [place] [address] Dr. Deepak Greenfield ALT [Catalytic activity/Vol] 91 U/L Critically high 16-63 [facility] Comment on above: Performed By: #### B MP #### [facility] [address] [place] [address] Dr. Deepak Greenfield Anion gap [Moles/Vol] 10.2 mmol/L Normal [facility] Comment on above: Performed By: #### B MP #### [facility] [address] [place] [address] Dr. Deepak Greenfield AST [Catalytic activity/Vol] 50 U/L Critically high 15-37 [facility] Comment on above: Performed By: #### B MP #### [facility] [address] [place] [address] Dr. Deepak Greenfield Bilirubin [Mass/Vol] 0.3 mg/dL Normal 0.2-1.0 [facility] Comment on above: Performed By: #### B MP #### [facility] [address] [place] [address] Dr. Deepak Greenfield Calcium [Mass/Vol] 8.6 mg/dL Normal 8.5-10.1 [facility] Comment on above: Performed By: #### B MP #### [facility] [address] [place] [address] Dr. Deepak Greenfield Chloride [Moles/Vol] 106 mmol/L Normal 98-107 [facility] Comment on above: Performed By: #### B MP #### [facility] [address] [place] [address] Dr. Deepak Greenfield CO2 [Moles/Vol] 29.9 mmol/L Normal 21.0-32.0 [facility] Comment on above: Performed By: #### B MP #### [facility] [address] [place] [address] Dr. Deepak Greenfield Creatinine [Mass/Vol] 0.65 mg/dL Critically low 0.70-1.30 [facility] Comment on above: Performed By: #### B MP #### [facility] [address] [place] [address] Dr. Deepak Greenfield EGFR-AF UGANDAN >60 Normal >=60 [facility] Comment on above: Performed By: #### B MP #### [facility] [address] [place] [address] Dr. Deepak Greenfield EGFR-NON AF UGANDAN >60 Normal >=60 [facility] Comment on above: Performed By: #### B MP #### [facility] [address] [place] [address] Dr. Deepak Greenfield Globulin (S) [Mass/Vol] 3.7 g/dL Normal [facility] Comment on above: Performed By: #### B MP #### [facility] [address] [place] [address] Dr. Deepak Greenfield Glucose [Mass/Vol] 105 mg/dL Normal 74-106 [facility] Comment on above: Performed By: #### B MP #### [facility] [address] [place] [address] Dr. Deepak Greenfield Potassium [Moles/Vol] 4.1 mmol/L Normal 3.5-5.1 [facility] Comment on above: Performed By: #### B MP #### [facility] [address] [address] [address] Deepak Greenfield Protein [Mass/Vol] 7.0 g/dL Normal 6.4-8.2 [facility] Comment on above: Performed By: #### B MP #### [facility] [address] [address] [address] Deepak Greenfield Sodium [Moles/Vol] 142 mmol/L Normal 136-145 [facility] Comment on above: Performed By: #### B MP #### [facility] [address] [address] [address] Deepak Greenfield Urea nitrogen [Mass/Vol] 13.0 mg/dL Normal 7.0-18.0 [facility] Comment on above: Performed By: #### B MP #### [facility] [address] [address] [address] Deepak Greenfield Urea nitrogen/Creatinine [Mass ratio] 20.0 mg/mg Normal [facility] Comment on above: Performed By: #### B MP #### [facility] [address] [address] [address] Deepak Greenfield Vital Signs Date Time Vital Sign Value Performing Clinician Facility 03-07-2024 11:34-0500 Diastolic blood pressure 88 mm[Hg] Rodriguez Rashel DO Work Phone: [facility] 03-07-2024 11:34-0500 Heart rate 68 /min Rodriguez Rashel DO Work Phone: [facility] 03-07-2024 11:34-0500 SaO2% (BldA) [Mass fraction] 98 % Rodriguez Rashel DO Work Phone: [facility] 03-07-2024 11:34-0500 Systolic blood pressure 128 mm[Hg] Rodriguez Rashel DO Work Phone: [facility] 12-16-2022 10:18-0400 Blood Pressure Location Arline Levine [facility] 12-16-2022 10:18-0400 Body temperature 98.06 [degF] Arline Lue [facility] 12-16-2022 10:18-0400 Diastolic blood pressure 78 mm[Hg] Arline Lue [facility] 12-16-2022 10:18-0400 Heart rate 84 /min Arline Lue [facility] 12-16-2022 10:18-0400 Systolic blood pressure 128 mm[Hg] Arline Lue [facility] 12-23-2021 11:30-0400 Body height 157.48 cm Antionette Leonel Other [facility] Other 12-23-2021 11:30-0400 Body mass index (BMI) [Ratio] 25.79 kg/m2 Antionette Leonel Other [facility] [employer] Other 12-23-2021 11:30-0400 Body temperature 98.5 [degF] Antionette Leonel Other [facility] [employer] Other 12-23-2021 11:30-0400 Body weight 63.96 kg Antionette Leonel Other [facility] [employer] Other 12-23-2021 11:30-0400 Diastolic blood pressure 70 mm[Hg] Antionette Leonel Other [facility] [employer] Other 12-23-2021 11:30-0400 Respiratory rate 20 /min Antionette Leonel Other [employer] [facility] [employer] Other 12-23-2021 11:30-0400 SaO2% (BldA) [Mass fraction] 99 % Antionette Leonel Other [facility] [employer] Other 12-23-2021 11:30-0400 Systolic blood pressure 120 mm[Hg] Antionette Leonel Other [facility] [employer] Other 10-22-2021 10:29-0400 Blood Pressure Location Arline Lue [facility] [place] 10-22-2021 10:29-0400 Diastolic blood pressure 92 mm[Hg] Arline Lue [facility] 10-22-2021 10:29-0400 Heart rate 100 /min Arline Lue [facility] [place] 10-22-2021 10:29-0400 Respiratory rate 16 /min Arline Lue [facility] [place] 10-22-2021 10:29-0400 Systolic blood pressure 137 mm[Hg] Arline Lue [facility] Encounters Encounter Date Encounter Type Care Provider Facility Start: 03-07-2024 End: 03-07-2024 Bamboo flowsheet Rodriguez Rashel DO Work Phone: [facility] Start: 03-07-2024 End: 03-07-2024 Bamboo flowsheet Rodriguez Rashel DO Work Phone: [facility] Start: 03-07-2024 End: 03-07-2024 Office outpatient visit 25 minutes Rodriguez Rashel DO Work Phone: [facility] [place] [facility] Comment on above: Generalized convulsi ve epilepsy (CMS/HCC) (Primary Dx); 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); Spastic hemiplegia affecting dominant side (CMS/HCC); Spastic hemiplegia, nondominant side (HCC) (CMS/HCC); Severe intellectual disabilities (CMS/HCC) Start: 03-07-2024 End: 03-07-2024 ambulatory RODRIGUEZ VANG Not Available Start: 01-11-2024 End: 01-11-2024 ambulatory [facility] Work Phone: Start: 01-11-2024 End: 01-11-2024 Patient encounter procedure [facility] Work Phone: Start: 11-07-2023 End: 11-07-2023 Letter encounter Abundio Mares DDS Work Phone: [facility] Start: 08-25-2023 End: 08-25-2023 ambulatory RODRIGUEZ VANG Not Available Start: 07-06-2023 End: 07-06-2023 ambulatory [facility] Work Phone: Start: 07-06-2023 End: 07-06-2023 Patient encounter procedure [facility] Work Phone: Start: 01-05-2023 End: 01-05-2023 ambulatory Antionette Leonel Other [facility] [employer] Other Start: 01-05-2023 Office outpatient vi sit 25 minutes Antionette Leonel [facility] Start: 12-16-2022 End: 12-17-2022 ambulatory Arline Levine Facility:[facility] Start: 12-16-2022 End: 12-16-2022 Patient encounter procedure Arline Levine [facility] Start: 08-04-2022 End: 08-04-[address] FAM VENTURA Facility: Start: 07-29-2022 End: 08-02-2022 Evaluation and management of inpatient DR FAM VENTURA Facility:[facility] Start: 07-26-2022 End: 07-27-[address] FAM VENTURA Facility:[facility] Start: 07-23-2022 End: 07-24-2022 ambulatory FAM VENTURA Facility:[facility] Start: 07-23-2022 End: 07-23-2022 Patient encounter procedure FAM VENTURA [facility] Start: 06-23-2022 End: 06-23-2022 ambulatory Antionette Leonel Other [facility] [employer] Other Start: 06-23-2022 Office outpatient vi sit 25 minutes Antionette Leonel [facility] Start: 06-03-2022 End: 06-04-[address] FAM VENTURA Facility:[facility] Start: 05-08-2022 Letter encounter Abundio Mares DDS Work Phone: [facility] Start: 04-22-2022 End: 04-23-[address] FAM [...] 12-23-2021 End: 12-23-2021 ambulatory Antionette Leonel Other [employer] [facility] [employer] Other Start: 12-23-2021 Office outpatient vi sit 25 minutes Antionette Leonel [facility] Start: 12-16-2021 End: 12-17-2021 ambulatory UNKNOWN PROVIDER Facility:[facility] Start: 12-16-2021 End: 12-17-2021 Patient encounter procedure Mora Powell [facility] Work Phone: [facility] Start: 12-10-2021 End: 12-10-2021 Patient encounter procedure Arline Levine [facility] Start: 11-20-2021 End: 11-21-[address] FAM VENTURA Facility:[facility] Start: 11-13-2021 End: 11-14-2021 ambulatory ARLINE Duenas Facility:[facility] Start: 10-31-2021 End: 11-01-[address] FAM VENTURA Facility:[facility] Start: 10-22-2021 End: 10-22-2021 Patient encounter procedure Arline Levine [facility] Start: 10-21-2021 End: 10-21-[address] FAM VENTURA Facility:[facility] Start: 09-29-2021 End: 09-29-[address] FAM VENTURA Facility:[facility] Start: 09-22-2021 End: 09-22-2021 ambulatory ABBI SANCHEZ Facility:[facility] Procedures Date Procedure Procedure Detail Performing Clinician Start: 03-13-2024 Elec julisa implt npgt phys/qhp w/o programming Rodriguez Vang DO Work Phone: Plan of Treatment Date Care Activity Detail Author Start: 02-01-2030 Shingles (RZV) Vacci ne (1 of 2) Shingles (RZV) Vaccine (1 of 2) [facility] Start: 05-31-2024 End: 05-31-2024 Patient encounter procedure 05/31/2024 1:00 PM EST Office Visit [facility] [place] [phone] Rodriguez Vang DO [address] [place] [address] [facility] Start: 03-07-2024 End: 03-07-2024 Patient encounter procedure 03/07/2024 11:30 AM EST Office Visit [facility] [place] [facility] [place] [id number] Rodriguez Vang DO [address] [place] [address] Arrived [facility] [address] [facility] Comment on above: Arrived Start: 01-18-2024 Influenza vaccination Influenza Vacc ine (#1) [facility] Start: 12-19-2023 Influenza vaccination Influenza Vacc ine (#1) [facility] Start: 12-18-2022 COVID-19 Vaccine ( season) COVID-19 Vaccine ( season) [facility] Start: 01-17-2022 Influenza vaccination Influenza Vacc ine (#1) [facility] Start: 02-01-2015 [facility]id [facility] Start: 05-20-2012 Annual wellness visit Annual [facility] Visit ([id number]) [facility] Start: 02-01-2007 HPV Vaccine (optiona l start 27-45 years) HPV Vaccine (optional start 27-45 years) [facility] Start: 02-01-1999 Hepatitis A (HAV) Vaccine (optional start 19+ years) Hepatitis A (HAV) Vaccine (optional start 19+ years) [facility] Start: 02-01-1999 Hepatitis B vaccination Hepati tis B (HBV) Vaccine (1 of 3 - 19+ 3-dose series) [facility] Start: 02-01-1998 Hepatitis C screening Hepatitis C An tibody [facility] Start: 02-01-1998 Tetanus + diphtheria + acellular pertussis vaccine (product) Tdap Booster [facility] Start: 02-01-1995 HIV screening [facility] Start: 1980 COVID-19 Vaccine (#1) COVID-19 Vacci ne (#1) [facility] Start: 1980 Medicare Annual Wellness (AWV) Medicare Annual Wellness (AWV) [facility] Immunizations Immunization Date Immunization Notes Care Provider Lucero ibrahim 03-04-2020 pneumococcal conjuga te vaccine, 13 valent Mora Urmetz RDH Work Phone: [facility] 01-26-2018 influenza, injectabl e, quadrivalent, preservative free Mora Urmetz RDH Work Phone: [facility] 01-26-2018 influenza virus vaccine, unspecified formulation Mora Urmetz RDH Work Phone: [facility] 02-10-2017 influenza virus vaccine, unspecified formulation Arline Lue [facility] 02-10-2017 influenza, injectabl e, quadrivalent, contains preservative Mora Urmetz RDH Work Phone: [facility] 02-07-2015 influenza virus vaccine, unspecified formulation Arline Lue [facility] 02-07-2015 influenza, injectabl e, quadrivalent, preservative free Mora Urmetz RDH Work Phone: [facility] 10-23-2014 pneumococcal polysaccharide vaccine, 23 valent Mora Urmetz RDH Work Phone: [facility] 12-31-2010 influenza virus vaccine, unspecified formulation Arline Lue [facility] 12-31-2010 influenza, seasonal, injectable Mora Urmetz RDH Work Phone: [facility] 03-06-2009 novel [id number], preservative-free, injectable Mora Urmetz RDH Work Phone: [facility] 02-09-2008 influenza virus vaccine, whole virus Mora Urmetz RDH Work Phone: [facility] 02-09-2008 influenza, whole Arline Lue [facility] NEGATED: Highlighted row has not occurred!12-10-2021 SARS-CoV-2 mRNA (tozinameran 5y-11y) vaccine Arline Levine [facility] Payers Date Payer Category Payer Medicaid [id number] 2011 Medicare [id number] 1980 Unknown [id number] 2.16. [id number] 1980 Unknown [id number] 2.16.84 0.1.265250.3.579.2.593 1980 Unknown [id number] 2.16.84 0.1.227352.3.579.2.593 1980 Unknown [id number] 2.16.84 0.1.600642.3.579.2.593 1980 Unknown [id number] 2.16.84 0.1.138811.3.579.2.593 1980 Unknown [id number] 2.16.8 40.1.791230.3.579.2.727 1980 Unknown [id number] 2.16.8 40.1.679164.3.579.2.727 1980 Unknown [id number] 2.16.84 0.1.547008.3.579.2.1259 1980 Unknown [id number] 2.16.84 0.1.157154.3.579.2.1259 1959 Medicaid [id number] 1959 Medicare [id number] 2.1 [id number] 1953 Unknown [id number] 2.16.84 0.1.980567.3.579.2.593 1953 Unknown [id number] 2.16.84 0.1.944400.3.579.2.593 1953 Unknown [id number] 2.16.84 0.1.587124.3.579.2.593 1953 Unknown [id number] 2.16.84 0.1.597727.3.579.2.593 1953 Unknown [id number] 2.16.84 0.1.277013.3.579.2.593 1953 Unknown [id number] 2.16.84 0.1.465627.3.579.2.593 1953 Unknown [id number] 2.16.84 0.1.360170.3.579.2.593 1953 Unknown [id number] 2.16.84 0.1.601547.3.579.2.593 1953 Unknown [id number] 2.16.84 0.1.756920.3.579.2.593 1953 Unknown [id number] 2.16.84 0.1.754682.3.579.2.593 1953 Unknown [id number] 2.16.84 0.1.002452.3.579.2.593 1953 Unknown [id number] 2.16.84 0.1.026238.3.579.2.593 1953 Unknown [id number] 2.16.84 0.1.360099.3.579.2.593 1953 Unknown [id number] 2.16.84 0.1.451455.3.579.2.593 Self-pay Self Pay [id number] Social History Date Type Detail Facility Tobacco smoking status No Smokin g Status Entered [facility] Start: 11-02-2022 End: 03-07-2024 Sex Assigned At Male [facility] Start: 03-28-2020 Tobacco smoking stat us NHIS Tobacco smoking consumption unknown [facility] Start: 1980 Sex Assigned At Not on file [facility] Tobacco smoking status No Smokin g Status Entered [facility] Start: 11-02-2022 End: 12-16-2022 Tobacco smoking status Never smoked tobacco (finding) [facility] Tobacco smoking status Never [facility] Start: 1980 Sex Assigned At Male F [facility] Start: 11-02-2022 End: 03-07-2024 Alcoholic beverage intake Ex-drinker (finding) [facility] Start: 11-02-2022 End: 03-07-2024 History of Social function [facility] Functional Status Date Assessment Result Facility 12-16-2022 Functional Status N/A [facility] 12-10-2021 Functional Status N/A [facility] 10-22-2021 Functional Status N/A [facility] Clinical Notes 10-22-2021 to 03-07-2024 Rodriguez Vang DO - 03/07/2024 11:30 AM EST Note Date & Type Note Facility 03-07-2024 History of Presen t illness Narrative No chief complaint on file. Subjective Parish Lopez, 44 y.o., male is here for a follow up. Per caregiver he is having 4-6 seizures per month. Caregiver states that he is has been doing good. He is not having the sedation he was having before. HE is tolerating his other meds. His mood has been pretty normal but he does have his off days. He is at his baseline and doing well. NO new concerns He is tolerating his meds. He has his few seizure. 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[facility]) Past Surgical History: Procedure Laterality Date OTHER SURGICAL HISTORY 2010 Procedure:Vagal Nerve Stimulator;Disease:Seizure disorder TENDON RELEASE Spastic quadraparesis TONSILLECTOMY Family History Problem Relation Name Age of Onset Stroke Other Family history Cancer Other Family history Hypertension Other Family history Social History Tobacco Use Smoking status: Never Smokeless tobacco: Not on file Substance Use Topics Alcohol use: Not Currently Allergies: Promethazine, Amoxicillin, Amoxicillin-pot clavulanate, Clavulanic acid, Phenytoin, and Phenytoin sodium extended General: No fever or chills HEENT: No nasal congestion or runny nose Pulmonary: No shortness of breath or cough Cardiovascular: No chest pain or palpitations GI: No nausea or vomiting : No dysuria or hematuria Musculoskeletal: No new aches or pains or muscle weakness Infectious: no recurrent fevers or infections Dermatologic: No rashes or skin lesions Neurologic: No new headaches or dizziness other than in HPI Vitals: 03/07/24 1134 BP: 128/88 Pulse: 68 SpO2: 98% There is no height or weight on file to calculate BMI. Neurologic exam: Mental status: Awake, alert to person, Repeat words over and over as is his norm Memory = MRDD Attention and concentration = inattentive Fund of knowledge = MRDD HEENT: NC/AT Cranial nerves: CN II: Visual acuity is normal. Visual keslser full to confrontation. CN III, IV, : pupils equal round and reactive to light. Extraocular movements intact. No ptosis present. CN V: Facial sensation is normal. CN VII: Full and symmetric facial movement. CN VIII: Hearing apaears normal CN IX and X: can not visualize palate will not allow us to CN XI: he will not shrug her shoulders CN XII: grossly normal Speech: Aphasia with his MR CHRIS does state words over and over such as his name can not hold on conversation Pronator drift: He will not performed but does not appear to have any new weakness Coordination: no obvious dysmetria Sensory: He does withdraw from the cold in all 4 extremities Motor: LUE 4/5 RUE 4/5 LLE 3/5 RLE 3/5 Tone: No significant spasticity DTR: Biceps, BR 2/4 Patellar 1/4 Gait: Wheelchair-bound Romberg's Wheelchair-bound Review and summary of old records: Labs good Ammonia 19 VNS Readings: Output Current: 2.0 Signal Frequency: 30 Pulse Width: Hz: 250 Signal On Time: 30 sec Signal Off Time: 1.8 Magnet Output Current: 2.25 Pulse Width: 500 On Time: 30 sec # Magnet Usages: 184 (51 more) Autostim : on at 1.25 Autostim Pulse Width: 500 Autostim On Time: 30 Tachy on 3 detections Lead Test: not done Battery Life: 06/20 full Model: AspireSR Curry Rocha #: [id number] Manufactured: 2020 Implant Date: 09/09/2021 Assessment/Plan Diagnoses and all orders for this visit: 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 He is multiple seizure types including generalized and focal events. He remains on multiple medications that do help control this. He still has some breakthrough seizures on occasion. This is no more than his normal. Overall he is doing fairly well. He is more alert oriented and interactive today in the room then have seen him in awhile. He is on Keppra felbamate Trileptal and Onfi and he has a VNS. He was taken off the Depakote for his high ammonia levels Which still fluctuate are sometimes high but not as high as I used to be He has not had the altered mental status and sedation he was having previously. He has not needed the Diastat recently. H Patient does have bilateral spastic hemiplegia. He was previously thought to have Tristen disease. Genetic testing for that and it was negative. Regardless there is really no other treatment and it was more informative. His lab work was sent over after the visit which looks fairly good except for a slightly high ammonia level around 40 Plan: VNS interrogated and it is working well = battery is half full Labs reviewed after visit Cont the current meds Call for increase in events. If ammonia elavates increase the lactulose. Follow up 6 months This is a complicated patient due to his degree of seizure activity and continued seizures with breakthrough seizures. Unfortunately this increases the risk of morbidity and mortality. We do have him likely as good as he is going to get. We Monitor him closely. The diagnosis was all discussed with the patient. All questions were answered and they agreed with the treatment plan. Patient will call if there are any new issues or questions. Pt has been fully educated on their diagnosis, lab results, treatment options, follow up plan, and return instructions Return to clinic: 6 months. documented in this encounter [facility] 01-05-2023 Evaluation note Encounter Date Diagnosis Assessment Notes Dec, COPD (chronic obstructive pulmonary disease) (ICD-10 - J44.9) [facility] Other 08-30-2023 Hospital Discharge instructions Patient Education [...] provider. Document Revised: 08/14/2021 Document Reviewed: 08/14/2021 [employer] Patient Education 2022 [employer]. Follow Up Care 12/10/2021 11:51:23 With:Abner BYRNE, JUNIOR Hawk, URO Address: When: Unknown Comments:LENORA [facility] 03-07-2023 Evaluation note* Encounter Date Diagnosis Assessment Notes Treatment Notes Treatment Clinical Notes Jun, COPD (chronic obstructive pulmonary disease) (ICD-10 - J44.9) Continue with respiratory regemin, including VEST therapy, as you currently are doing. Call office with respiratory questions or concerns. [facility] Other 09-06-2022 Evaluation note* Encounter Date Diagnosis Assessment Notes Treatment Notes Treatment Clinical Notes Dec, COPD (chronic obstructive pulmonary disease) (ICD-10 - J44.9) Continue with VEST therapy twice a day. Ok to increase to TID if needed. [facility] Other 08-30-2022 NotePt presented today for OR evaluation. Limited eval was completed. Pt's case is not urgent updated contact information and placed Pt on OR list. Step by step process for OR flyer was given to caregiver. Please wait for phone call from OR coordinator.[employer] [id number] Instructions* Patient Instructions * Mora Powell RDH - 12/16/2021 11:57 AM EDT Pt presented today for OR evaluation. Limited eval was completed. Pt's case is not urgent updated contact information and placed Pt on OR list. Step by step process for OR flyer was given to caregiver. Please wait for phone call from OR coordinator. documented in this [id number] History of Present illness Narrative* Mora Powell RDH - 12/16/2021 11:42 AM EDT ----- Thursday, December 16, 2021 at 12:03:50 PM ----- ----- Provider: [id number] Heriberto Powell Hygienist -- Clinic: [place] ----- [facility], Pt is ready for tx. Pt presented for dental evaluation for future OR. Caregiver in the room. Patient is non-verbal. Severe intellectual disability, seizure disorder Caregiver stated patient is not pain and no complaining. Radiograph taken today: no possible due to patient behavior Case requested for OR. Guardian mother Katia Lopez. [phone]. [facility] [phone] [id number] ( [facility] pt's appt) AVS printed and handed flyer for step by step instruction of OR process to Caregiver exam By: Elliott Ham RD [place]. OR ----- Signed on Thursday, December 16, 2021 at 12:18:18 PM ----- ----- Provider: [id number] Heriberto Adams DDS -- Clinic: [place] ----- documented in this [id number] Hospital Discharge instructions Patient Education 12/10/2021 11:47:35 [...] nerve stimulation). For women, using a medical imaging specialist to prevent urine leaks. This is a [...] right after experiencing incontinence. General instructions Take hnwa-fzt-aajmftq and prescription medicines only as told by [...] 05/13/2005 Document Revised: 04/15/2018 Document Reviewed: 07/15/2017 [employer] Patient Education 2020 [employer]. Follow Up Care 10/22/2021 11:38:20 With:Abner BYRNE, JUNIOR Hawk, URO Address: When:1 year Comments:W/ renal US [facility] 07-06-2022 Hospital Discharge instructions Patient Education 10/22/2021 [...] nerve stimulation). For women, using a medical imaging specialist to prevent urine leaks. This is a [...] right after experiencing incontinence. General instructions Take bjtf-bre-acpjezb and prescription medicines only as told by [...] 05/13/2005 Document Revised: 04/15/2018 Document Reviewed: 07/15/2017 [employer] Patient Education 2020 [employer]. 10/22/2021 11:42:30 Renal Mass Renal Mass A [...] provider gives to you. In general: Take gfnd-tew-lsgbqto and prescription medicines only as told by [...] 10/31/2014 Document Revised: 05/12/2018 Document Reviewed: 05/12/2018 [employer] Patient Education 2020 [employer]. Follow Up Care 09/22/2021 14:10:46 With:Abner BYRNE, Arline Little, UR, URO Address: When:1 month [facility] evaluation + Plan note Future Appointments Appointment Date:11/19/2021 10:00:00 AM Scheduled Provider:Arline Levine MD Location:[facility] Appointment Type:URO Office Visit [facility] evaluation + Plan note Future Appointments Appointment Date:12/16/2022 10:15:00 AM Scheduled Provider:Arline Levine MD Location:[facility] Appointment Type:URO Office Visit [facility] evaluation note* Diagnosis Onset Date Resolution Status COPD (chronic obstructive pulmonary disease) acute Severe intellectual disability [facility] Work Phone: Evaluation note* Diagnosis 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) Spastic hemiplegia affecting dominant side (CMS/HCC) Spastic hemiplegia affecting dominant side Spastic hemiplegia, nondominant side (HCC) (CMS/HCC) Spastic hemiplegia affecting nondominant side Severe intellectual disabilities (CMS/HCC) Severe intellectual disabilities documented [facility] encounter [facility] - Reported* Type Description Date Medical History Mental retardation Medical History Seizure Disorder Medical History Tristen Syndrome Medical History ADD Medical History Hypothyroidism Medical History Spastic Quadraparesis Medical History Osteoporosis Medical History Tristen-Beuren syndrome Medical History Seizure disorder Medical History Seizure disorder Medical History COPD Surgical History VNS REPLACED 2021 [facility] Other Hospital course Narrative No data available for this section [facility] Hospital Discharge instructions No data available for this section [facility] No data available for this section [facility] Summary Purpose Family History No Family [...] Care Team (unrecognized sect ion and content) 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 Relationship Specialty Start Date End Date Abundio Mares DDS [address] [place] [address] Resident Dentistry 02/23/20 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 Relationship Specialty Start Date End Date Abundio Mares DDS [address] [place] [address] Resident Dentistry 02/23/20 Team Status: Active Member Role Status Dates Fam Ventura DO Primary Care Provider Active Team Status: Inactive Member Role Status Dates Fam Ventura DO Primary Care Provider Active Start: July 06, 2023 End: July 06, 2023 Antionette Castaneda APRN [facility]- Attending Provider Active Start: July 06, 2023 End: July 06, 2023 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 Relationship Specialty Start Date End Date Abundio Mares DDS [address] [place] [address] Resident Dentistry 02/23/20 Team Status: Inactive Member Role Status Dates Fam Ventura DO Primary Care Provider Active Start: January 11, 2024 End: January 11, 2024 Antionette Castaneda APRN [facility] Attending Provider Active Start: January 11, 2024 End: January 11, 2024 [place] Active Start: 2023 End: January 11, 2024 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 Relationship Specialty Start Date End Date Unallocated, Faye Fermin MD [address] [place] [address] PCP - General 09/23/22 Fam Ventura MD [address] [place] [address] Referring Physician Orthopaedic Surgery 09/23/22 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 Relationship Specialty Start Date End Date Unallocated, Faye Fermin MD [address] [place] [id number] PCP - General 09/23/22 Fam Ventura MD [address] [place] [address] Referring Physician Orthopaedic Surgery 09/23/22 (unrecognized sect ion and content) No Status Records FoundNo Status Records FoundNo Status Records FoundNo Status Records Found INFORMATION SOURCE (unrecogn ized section and content) DATE CREATED AUTHOR 12/18/2021 [employer] DATE CREATED AUTHOR AUTHOR'S ORGANIZ ATION 08/05/2022 [facility] DATE CREATED AUTHOR AUTHOR'S ORGANIZ ATION 01/26/2023 [facility] DATE CREATED AUTHOR AUTHOR'S ORGANIZ ATION 03/09/2024 [facility] EPIC REASON FOR VISIT [...] BE BASED ON THE PRIMARY CLINICAL RECORDS. [facility] [employer] [facility]. provides no warranty or guarantee of the accuracy or completeness of information in this document.
== END 2024-03-24 10:42 | disposition home or self-care (01) ==
LOC: LAB 10:41
PROVIDERS: PCP Family Medicine; Visit Provider Family Medicine
DX: S81.002A Unspecified open wound, left knee, initial encounter (principal)
CPT/HCPCS: 87070; 87075; 87150; 87186

== ENCOUNTER 2024-05-02 08:35 | Outpatient (OUT) | payer MEDICARE, MEDICAID, SELFPAY ==
--- OUTSIDE RECORDS SUMMARY | 2024-05-02 08:54 | XMS_ITS | CCD ---
Author Organization [facility] Care Team Providers Care Order Takers Supervisor Name Role Phone FAM VENTURA Primary Care Physician [phone] Vishnu DDS, Abundio Unavailable Antionette Castaneda Unavailable LORENZO, DR [...] LOYA ., DR BRIDGET Jones Admitting Unavailable NADERELeonor, DR CHELE Duran Consulting Unavailable ALICE ., [...] Mares DDS Unavailable Fam Ventura MD Unavailable [phone] Unallocated MD Noms Provider Primary Care Diamante fajardo RODRIGUEZ VANG Attending Unavailable RODRIGUEZ VANG Attending Unavailable Allergies Allergy Classification Reported Allergen(s) Allergy Type Date of Onset Reaction(s) Facility (8 sources) Amoxicillin / Clavulanate; Translations: [amoxicillin-clav ulanate] Drug Allergy Unknown [facility] (13 sources) Phenytoin; Translations: [phenytoin] Drug Allergy 3 Unknown [facility] (18 sources) Promethazine; Translations: [promethazine] Drug Allergy 7 Unknown [facility] (8 sources) Phenytoin Drug Allergy 7 Unknown [facility] (8 sources) Amoxicillin-Pot Clavulanate Propensity to adverse reactions to drug 7 Unknown [facility] (1 source) 4-Aminobenzoic Acid Drug Allergy [facility] (1 source) Amoxicillin / Clavulanate Drug Allergy 4 [facility] (1 source) Levamisole Drug Allergy 4 [facility] (1 source) metroNIDAZOLE Drug Allergy [facility] (1 source) Phenytoin Drug Allergy 4 [facility] (1 source) remdesivir (investigational use) Drug allergy (disorder) [facility] (5 sources) Amoxicillin Drug Allergy 3 Unknown [facility] (4 sources) Clavulanate Drug Allergy 3 Unknown [facility] Medications Current Medications Medication Drug Class(es) Dates Sig (Normalized) Sig (Original) Acetaminophen (8 sources) Start: 12-16-2022 acetaminophen Refills(s) 0 Start Date: 12/16/22 Status: Ordered Start: 03-28-2020 Acetaminophen Active 650 MG LA EVERY 4-6 HOURS March 28, 2020 1:00am [...] Active alendronic acid 70 mg oral tablet (17 sources) Bisphosphonate Start: 07-04-2015 alendronate (F OSAMAX) [...] 2023 10:23am take 1 tablet by rebecca every twenty-four hours Vitamin C 500 MG 1 tablet Orally Once a day Active atorvastatin 10 mg oral tablet (17 sources) HMG-CoA Reductase Inhibitor Start: 07-04-2015 atorvastatin [...] day Active clindamycin 300 mg oral capsule (5 sources) Lincosamide Antibacterial Start: 02-29-2020 take 1 capsule by mouth three times daily clindamycin (CLEOCIN) 300 MG capsule TAKE 1 CAPSULE BY MOUTH 3 TIMES DAILY FOR 7 DAYS. 21 Capsule 02/29/2020 Active cloBAZam 10 mg oral tablet (17 sources) Benzodiazepine Start: 07-04-2015 cloBAZam (ONFI) 10 MG tablet 02/26/2020 Active clonazePAM 0.25 mg disintegrating oral tablet (5 [...] 10:24am 10MG RECTAL GEL, PATIENT TAKES IT LA - wont let me save without route. [...] 28, 2020 1:00am take 1 capsule by [facility] every twenty-four hours Docusate Sodium [...] Status: Ordered felbamate 400 mg oral tablet (17 sources) Anti-epileptic Agent Start: 02-23-2020 felbamate (FELBATOL) 400 MG tablet 02/23/2020 Active felbamate (Felba ela) 400 MG tablet 1 (one) time each day at the same time Active fenofibrate 145 mg oral tablet (7 sources) Peroxisome Proliferator Receptor alpha Agonist Start: 10-22-2021 take 1 mg by mouth once daily fenofibrate 145 mg Tab mg tab(s), Oral, Daily, Refills(s) 0 Start Date: 10/22/21 Status: Ordered fluticasone furoate 0.05 MG/ACTUAT Dry Powder Inhaler (17 sources) Corticosteroid Start: 10-22-2021 fluticasone furoate 50 [...] day Active furosemide 20 mg oral tablet (17 sources) Loop Diuretic Start: 02-23-2020 furosemide (LA SIX) 20 MG tablet 02/23/2020 Active glycopyrrolate 1 mg oral tablet (12 sources) [...] 2020 1:00am lactulose 667 mg/ml oral solution (20 sources) Osmotic Laxative Start: 10-22-2021 Enulose 10 [...] day Active levETIRAcetam 750 mg oral tablet (17 sources) Start: 03-28-2020 take 1500 mg by [...] tablet 11/10/2022 Active Start: 02-23-2020 End: 06-28-2023 levothyroxine (SYNTHROID) 10 0 MCG tablet 02/23/2020 Active Start: 02-23-2020 End: 06-28-2023 levothyroxine (SYNTHROID) 50 MCG tablet 02/23/2020 Active Start: 07-04-2015 levothyroxine 150 microgram, Oral, Daily, Refills(s) 0, Thyroid Start Date: 07/04/15 Status: Ordered take 1 tablet by rebecca every twenty-four hours Levothyroxine Sodium 150 MCG 1 tablet Orally Once a day Active linaclotide 0.145 mg oral capsule (18 sources) Guanylate Cyclase-C Agonist Start: 12-16-2022 Linzess [...] Ordered Normal saline (7 sources) Start: 07-05-2015 [place] Saline Alpa al Gel Nasal, TID, Refill(s) 0, Dry nasal passages Start Date: 07/05/15 Status: Ordered [place] Saline Nasal Gel Nasally Active omeprazole 40 mg delayed release oral capsule (17 sources) Proton Pump Inhibitor Start: 02-23-2020 omeprazole (PRILOSEC) 40 MG capsule 02/23/2020 Active OXcarbazepine 600 mg oral tablet (20 sources) Anti-epileptic Agent Start: 06-28-2023 take 300 mg by mouth twice daily Oxcarbazepine Active 300 MG PO Twice daily June 28, 2023 1:14pm Start: 02-23-2020 End: 06-28-2023 oxcarbazepine (TRILEPTAL) 30 0 MG tablet 02/23/2020 Active Start: 02-23-2020 End: 06-28-2023 oxcarbazepine (TRILEPTAL) 60 0 MG tablet 02/23/2020 Active Start: 07-05-2015 take 300 mg by mouth [...] bid, Prophylaxis Start Date: 07/05/15 Status: Ordered [id number] oral powder for reconstitution (1 source) Start: [id number] oral powder for reconstitution Start Date: 12/16/22 Status: Ordered polyethylene glycol 3350 07902 mg powder for oral solution (4 sources) [...] 0 Start Date: 10/22/21 Status: Ordered sennosides, custodial 8.6 mg oral tablet (2 sources) Start: [...] e a day Active Sodium Chloride-Aloe Vera ([place] Saline) gel (2 sources) Start: 06-28-2023 Sodium Chlorid e-Aloe Vera ([place] Saline) gel Active 1 APPLIC TOPICAL Daily [...] 2023 1:06pm June 28, 2023 1:22pm Start: 02-23-2020 End: 06-28-2023 divalproex (DEPAKOTE SPRINKL E) 125 MG CSDR capsule 02/23/2020 Active Start: 02-23-2020 End: 06-28-2023 divalproex (DEPAKOTE) 250 MG enteric coated tablet 02/23/2020 Active Start: 02-23-2020 take 250 mg by mouth twice daily Divalproex Active 250 MG PO Twice daily June 28, 2023 1:07pm Start: 02-23-2020 take 1 mg by mouth [...] Onset: 12-23-2021 Resolved: 12-23-2021 Chronic Developmental disorders (19 sources) Severe intellectual disability; Translations: [Mental handicap] Onset: 02-22-2020 06-30-2013 Chronic Disorders of lipid metabolism (1 source) Hyperlipidemia, unspecified; Translations: [HYPERLIPIDEMIA UNSPECIFIED] Onset: 08-05-2022 Chronic Disorders of teeth and jaw (5 sources) Dental caries; Translations: [Dental caries, unspecified] Onset: 03-28-2024 03-28-2024 Episodic E Codes: Adverse effects of medical drugs [...] 06-30-2013 Chronic Other aftercare (5 sources) Other penitentiary (current) drug therapy; Translations: [OTH CARE HOME CURRENT DRUG THERAPY] Onset: 06-03-2022 Episodic Other [...] Test Name Value Interpretation Reference Range Facility Progress Noteson 04-25-2024 Urology Teacher Authentication Interface Message Text Parent/guardian/patie nt was contacted for PSE AND OR scheduled -- confirmed information with mom, also informed mom importance of receiving PSE call -- if not received surgery will be canceled. 06/12/2024 ----- Thursday, April 25, 2024 at 2:35:00 PM ----- ----- Provider: [facility] -- Clinic: [place] ----- Normal [facility] No Panel Informationon 03-13 As in note [facility] Communicado [facility] Sky Frequency e Ambulatory Visit Summaryon 0 12-16-2022 Ambulatory [...] (oxcarbazepine 600 mg Tab) polyethylene glycol 3350 ([id number] oral powder for reconstitution) polyethylene glycol 3350 (polyethylene glycol 3350 17 gram packet) rifaximin (Xifaxan 550 mg oral tablet) senna (Senna 8.6 mg oral tablet) sodium chloride nasal ([place] Saline Nasal Gel) tamsulosin Discharge Vitals Temperature [...] Application T (more content not included)... Normal [facility] Patient Educationon 12-17-19 23 Patient Education Obstetrics [...] provider. Document Revised: 08/14/2021 Document Reviewed: 08/14/2021 Elsevier Patient Education ? 2022 [employer] [facility] Physician Orderon 12-16-2022 Physician Order [id number] .[id number]:127 [facility] - Ultrasound Reporton RAD - Ultrasound Report [id number] .[id number]:127 Normal [facility] Urology Office/Clinic Noteon 12-16-2022 Urology Office/Clinic Note [...] of retractile testes. Pt currently resides in [facility]. CBC/CMP 08/01/22 1. Retractile testis (Q55.22: [...] URL, URO Additional Instructions: PRN Patient Education Makayla [...] Eye-Both, QID atorvastatin, 10 mg, Oral, Daily [place] Saline Nasal Gel, Nasal, TID azelastine nasal 137 mcg/inh spray, 2 spray(s), Nasal, As (more content not included)... Normal [facility] Comment on above: Result Comment: Elec tronically [...] GUANAKITO MEADE Date: 2022-08-04 18:50 Normal [facility] AMMONIAon 08-02-2022 Ammonia (P) [Moles/Vol] 87 umol/L Critically high [facility] Comment on above: Performed By: #### B MP #### [facility] [address] [place] [address] Dr. Deepak Greenfield AMMONIAon 08-01-2022 Ammonia (P) [Moles/Vol] 42 umol/L Critically high -32 [facility] Comment on above: Performed By: #### M G, CMP #### [facility] [address] [address] [address] Deepak Greenfield CBC W MANUAL DIFFon 08-02-19 23 ATYPICAL LYMPH # 0.41 103/ul Normal [facility] Comment on above: Performed By: #### M G, CMP #### [facility] [address] [place] [address] Dr. Deepak Greenfield ATYPICAL LYMPH % 7 % Normal [facility] Comment on above: Performed By: #### M G, CMP #### [facility] [address] [place] [address] Dr. Deepak Greenfield BAND # 0.0 103/ul Normal 0.0-0.3 [facility] Comment on above: Performed By: #### M G, CMP #### [facility] [address] [place] [address] Dr. Deepak Greenfield BAND % 0 % Normal 0-5 [facility] Comment on above: Performed By: #### M G, CMP #### [facility] [address] [place] [address] Dr. Deepak Greenfield BASOM # 0.00 103/ul Normal 0.00-0.10 [facility] Comment on above: Performed By: #### M G, CMP #### [facility] [address] [place] [address] Dr. Deepak Greenfield BASOM % 0.0 % Critically low 0.2-2.0 [facility] Comment on above: Performed By: #### M G, CMP #### [facility] [address] [place] [address] Dr. Deepak Greenfield BLAST # Normal [facility] Comment on above: Performed By: #### M G, CMP #### [facility] [address] [place] [address] Dr. Deepak Greenfield BLAST % Normal [facility] Comment on above: Performed By: #### M G, CMP #### [facility] [address] [place] [address] Dr. Deepak Greenfield CORRECTED WBC Normal 4.0-11.0 [facility] Comment on above: Performed By: #### M G, CMP #### [facility] [address] [address] [address] Deepak Greenfield EOS # 0.06 103/ul Normal 0.00-0.70 [facility] Comment on above: Performed By: #### M G, CMP #### [facility] [address] [address] [address] Deepak Greenfield EOS% 1.0 % Normal 0.9-7.0 [facility] Comment on above: Performed By: #### M G, CMP #### [facility] [address] [address] [address] Deepak Greenfield HCT 37.6 % Critically low 42.0-54.0 [facility] Comment on above: Performed By: #### M G, CMP #### [facility] [address] [address] [address] Deepak Greenfield HGB 12.3 g/dl Critically low 14.0-18.0 [facility] Comment on above: Performed By: #### M G, CMP #### [facility] [address] [address] [address] Deepak Greenfield LYMPHM # 1.91 103/ul Normal 1.20-3.80 [facility] Comment on above: Performed By: #### M G, CMP #### [facility] [address] [address] [address] Deepak Greenfield LYMPHM% 33.0 % Normal 20.5-60.0 [facility] Comment on above: Performed By: #### M G, CMP #### [facility] [address] [address] [address] Deepak Greenfield MCH 31.7 pg Normal 25.9-34.0 [facility] Comment on above: Performed By: #### M G, CMP #### [facility] [address] [address] [address] Deepak Greenfield MCHC 32.7 g/dl Normal 29.9-35.2 [facility] Comment on above: Performed By: #### M G, CMP #### [facility] [address] [address] [address] Deepak Greenfield MCV 96.9 fL Critically high 80.0-94.0 [facility] Comment on above: Performed By: #### M G, CMP #### [facility] [address] [place] [address] Dr. Deepak Greenfield METAMYELOCYTE # Normal [facility] Comment on above: Performed By: #### M G, CMP #### [facility] [address] [place] [address] Dr. Deepak Greenfield METAMYELOCYTE % Normal [facility] Comment on above: Performed By: #### M G, CMP #### [facility] [address] [place] [address] Dr. Deepak Greenfield MONOM# 0.29 103/ul Critically low 0.30-0.80 [facility] Comment on above: Performed By: #### M G, CMP #### [facility] [address] [place] [address] Dr. Deepak Greenfield MONOM% 5.0 % Normal 1.7-12.0 [facility] Comment on above: Performed By: #### M G, CMP #### [facility] [address] [place] [address] Dr. Deepak Greenfield MPV 11.0 fL Normal 9.5-13.5 [facility] Comment on above: Performed By: #### M G, CMP #### [facility] [address] [place] [address] Dr. Deepak Greenfield MYELOCYTE # Normal [facility] Comment on above: Performed By: #### M G, CMP #### [facility] [address] [place] [address] Dr. Deepak Greenfield MYELOCYTE % Normal [facility] Comment on above: Performed By: #### M G, CMP #### [facility] [address] [place] [address] Dr. Deepak Greenfield NRBC Normal [facility] Comment on above: Performed By: #### M G, CMP #### [facility] [address] [address] [address] Deepak Greenfield PLT 208 103/ul Normal 150-450 [facility] Comment on above: Performed By: #### M G, CMP #### [facility] [address] [place] [address] Dr. Deepak Greenfield RBC 3.88 106/ul Critically low 4.70-6.10 [facility] Comment on above: Performed By: #### M G, CMP #### [facility] [address] [place] [address] Dr. Deepak Greenfield RDW 12.9 % Normal 11.0-15.0 [facility] Comment on above: Performed By: #### M G, CMP #### [facility] [address] [place] [address] Dr. Deepak Greenfield SEG # 3.13 103/ul Normal 1.40-6.50 [facility] Comment on above: Performed By: #### M G, CMP #### [facility] [address] [place] [address] Dr. Deepak Greenfield SEG % 54.0 % Normal 43.0-75.0 [facility] Comment on above: Performed By: #### M G, CMP #### [facility] [address] [place] [address] Dr. Deepak Greenfield STOMATOCYTES 3+ Normal [facility] Comment on above: Performed By: #### M G, CMP #### [facility] [address] [place] [address] Dr. Deepak Greenfield WBC 5.8 103/ul Normal 4.0-11.0 [facility] Comment on above: Performed By: #### M G, CMP #### [facility] [address] [place] [address] Dr. Deepak Greenfield PROF CHEM 8 (BAS METB)on Anion gap [Moles/Vol] 16.1 mmol/L Normal [facility] Comment on above: Performed By: #### B MP #### [facility] [address] [place] [address] Dr. Deepak Greenfield Calcium [Mass/Vol] 9.3 mg/dL Normal 8.5-10.1 [facility] Comment on above: Performed By: #### B MP #### [facility] [address] [address] [address] Deepak Greenfield Chloride [Moles/Vol] 105 mmol/L Normal 98-107 [facility] Comment on above: Performed By: #### B MP #### [facility] [address] [address] [address] Deepak Greenfield CO2 [Moles/Vol] 27.6 mmol/L Normal 21.0-32.0 [facility] Comment on above: Performed By: #### B MP #### [facility] [address] [place] [address] Dr. Deepak Greenfield Creatinine [Mass/Vol] 0.96 mg/dL Normal 0.70-1.30 [facility] Comment on above: Performed By: #### B MP #### [facility] [address] [place] [address] Dr. Deepak Greenfield EGFR-AF ANGOLAN >60 Normal >=60 [facility] Comment on above: Performed By: #### B MP #### [facility] [address] [place] [address] Dr. Deepak Greenfield EGFR-NON AF ANGOLAN >60 Normal >=60 [facility] Comment on above: Performed By: #### B MP #### [facility] [address] [place] [address] Dr. Deepak Greenfield Glucose [Mass/Vol] 160 mg/dL Critically high 74-106 [facility] Comment on above: Performed By: #### B MP #### [facility] [address] [address] [address] Deepak Greenfield Potassium [Moles/Vol] 3.7 mmol/L Normal 3.5-5.1 [facility] Comment on above: Performed By: #### B MP #### [facility] [address] [place] [address] Dr. Deepak Greenfield Sodium [Moles/Vol] 145 mmol/L Normal 136-145 [facility] Comment on above: Performed By: #### B MP #### [facility] [address] [place] [address] Dr. Deepak Greenfield Urea nitrogen [Mass/Vol] 5.0 mg/dL Critically low 7.0-18.0 [facility] Comment on above: Performed By: #### B MP #### [facility] [address] [place] [address] Dr. Deepak Greenfield Urea nitrogen/Creatinine [Mass ratio] 5.2 mg/mg Normal [facility] Comment on above: Performed By: #### B MP #### [facility] [address] [place] [address] Dr. Deepak Greenfield AMMONIAon 07-31-2022 Ammonia (P) [Moles/Vol] 94 umol/L Critically high - [facility] Comment on above: Performed By: #### M G, CMP #### [facility] [address] [place] [address] Dr. Deepak Greenfield CBC AUTO DIFFon 07-31-2022 BASO # 0.0 103/ul Normal 0.0-0.1 [facility] Comment on above: Performed By: #### B MP #### [facility] [address] [place] [address] Dr. Deepak Greenfield Basophils/100 WBC (Bld) 0.1 % Critically low 0.2-2.0 [facility] Comment on above: Performed By: #### B MP #### [facility] [address] [place] [address] Dr. Deepak Greenfield EO # 0.0 103/ul Normal 0.0-0.7 [facility] Comment on above: Performed By: #### B MP #### [facility] [address] [place] [address] Dr. Deepak Greenfield Eosinophils/100 WBC (Bld) 0.0 % Critically low 0.9-7.0 [facility] Comment on above: Performed By: #### B MP #### [facility] [address] [place] [address] Dr. Deepak Greenfield Erythrocyte distribution width (RBC) [Ratio] 13.1 % Normal 11.0-15.0 [facility] Comment on above: Performed By: #### B MP #### [facility] [address] [place] [address] Dr. Deepak Greenfield Hematocrit (Bld) [Volume fraction] 32.4 % Critically low 42.0-54.0 [facility] Comment on above: Performed By: #### B MP #### [facility] [address] [place] [address] Dr. Deepak Greenfield Hemoglobin (Bld) [Mass/Vol] 10.9 g/dL Critically low 14.0-18.0 [facility] Comment on above: Performed By: #### B MP #### [facility] [address] [place] [address] Dr. eDepak Greenfield IG # 0.02 10e3/ul Normal 0.00-0.03 [facility] Comment on above: Performed By: #### B MP #### [facility] [address] [place] [address] Dr. Deepak Greenfield IG % 0.3 % Normal 0.0-0.5 [facility] Comment on above: Performed By: #### B MP #### [facility] [address] [place] [address] Dr. Deepak Greenfield LYMPH # 2.7 103/ul Normal 1.2-3.8 [facility] Comment on above: Performed By: #### B MP #### [facility] [address] [place] [address] Dr. Deepak Greenfield Lymphocytes/100 WBC (Bld) 38.9 % Normal 20.5-60.0 [facility] Comment on above: Performed By: #### B MP #### [facility] [address] [place] [address] Dr. Deepak Greenfield MANUAL DIFF REQ NO Normal [facility] Comment on above: Performed By: #### B MP #### [facility] [address] [place] [address] Dr. Deepak Greenfield MCH (RBC) [Entitic mass] 32.3 pg Normal 25.9-34.0 [facility] Comment on above: Performed By: #### B MP #### [facility] [address] [address] [address] Deepak Greenfield MCHC (RBC) [Mass/Vol] 33.6 g/dL Normal 29.9-35.2 [facility] Comment on above: Performed By: #### B MP #### [facility] [address] [address] [address] Deepak Greenfield MCV (RBC) [Entitic vol] 96.1 fL Critically high 80.0-94.0 [facility] Comment on above: Performed By: #### B MP #### [facility] [address] [place] [address] Dr. Deepak Greenfield MONO # 0.3 103/ul Normal 0.3-0.8 [facility] Comment on above: Performed By: #### B MP #### [facility] [address] [place] [address] Dr. Deepak Greenfield Monocytes/100 WBC (Bld) 4.9 % Normal 1.7-12.0 [facility] Comment on above: Performed By: #### B MP #### [facility] [address] [place] [address] Dr. Deepak Greenfield NEUT # 3.9 103/ul Normal 1.4-6.5 [facility] Comment on above: Performed By: #### B MP #### [facility] [address] [place] [address] Dr. Deepak Greenfield Neutrophils/100 WBC (Bld) 55.8 % Normal 43.0-75.0 [facility] Comment on above: Performed By: #### B MP #### [facility] [address] [place] [address] Dr. Deepak Greenfield Platelet mean volume (Bld) [Entitic vol] 9.7 fL Normal 9.5-13.5 [facility] Comment on above: Performed By: #### B MP #### [facility] [address] [place] [address] Dr. Deepak Greenfield PLT 296 103/ul Normal 150-450 [facility] Comment on above: Performed By: #### B MP #### [facility] [address] [address] [address] Deepak Greenfield RBC 3.37 106/ul Critically low 4.70-6.10 [facility] Comment on above: Performed By: #### B MP #### [facility] [address] [address] [address] Deepak Greenfield WBC 7.0 103/ul Normal 4.0-11.0 [facility] Comment on above: Performed By: #### B MP #### [facility] [address] [address] [address] Deepak Greenfield PROF CHEM 8 (BAS METB)on Anion gap [Moles/Vol] 14.9 mmol/L Normal [facility] Comment on above: Performed By: #### C BC #### [facility] [address] [place] [address] Dr. Deepak Greenfield Calcium [Mass/Vol] 8.8 mg/dL Normal 8.5-10.1 [facility] Comment on above: Performed By: #### C BC #### [facility] [address] [address] [address] Deepak Greenfield Chloride [Moles/Vol] 105 mmol/L Normal 98-107 [facility] Comment on above: Performed By: #### C BC #### [facility] [address] [address] [address] Deepak Greenfield CO2 [Moles/Vol] 26.4 mmol/L Normal 21.0-32.0 [facility] Comment on above: Performed By: #### C BC #### [facility] [address] [address] [address] Deepak Greenfield Creatinine [Mass/Vol] 0.70 mg/dL Normal 0.70-1.30 [facility] Comment on above: Performed By: #### C BC #### [facility] [address] [address] [address] Deepak Greenfield EGFR-AF ANGOLAN >60 Normal >=60 [facility] Comment on above: Performed By: #### C BC #### [facility] [address] [address] [address] Deepak Greenfield EGFR-NON AF ANGOLAN >60 Normal >=60 [facility] Comment on above: Performed By: #### C BC #### [facility] [address] [address] [address] Deepak Greenfield Glucose [Mass/Vol] 129 mg/dL Critically high 74-[address] [facility] Comment on above: Performed By: #### C BC #### [facility] [address] [address] [address] Deepak Greenfield Potassium [Moles/Vol] 4.3 mmol/L Normal 3.5-5.1 [facility] Comment on above: Performed By: #### C BC #### [facility] [address] [place] [address] Dr. Deepak Greenfield Sodium [Moles/Vol] 142 mmol/L Normal 136-145 [facility] Comment on above: Performed By: #### C BC #### [facility] [address] [place] [address] Dr. Deepak Greenfield Urea nitrogen [Mass/Vol] 6.0 mg/dL Critically low 7.0-18.0 [facility] Comment on above: Performed By: #### C BC #### [facility] [address] [place] [address] Dr. Deepak Greenfield Urea nitrogen/Creatinine [Mass ratio] 8.6 mg/mg Normal [facility] Comment on above: Performed By: #### C BC #### [facility] [address] [place] [address] Dr. Deepak Greenfield AMMONIAon 07-30-2022 Ammonia (P) [Moles/Vol] 64 umol/L Critically high 11-32 [facility] Comment on above: Performed By: #### C BC #### [facility] [address] [place] [address] Dr. Deepak Greenfield CBC AUTO DIFFon 07-30-2022 BASO # 0.0 103/ul Normal 0.0-0.1 [facility] Comment on above: Performed By: #### I NFLUAB #### [facility] [address] [place] [address] Dr. Deepak Greenfield Basophils/100 WBC (Bld) 0.0 % Critically low 0.2-2.0 [facility] Comment on above: Performed By: #### I NFLUAB #### [facility] [address] [place] [address] Dr. Deepak Greenfield EO # 0.0 103/ul Normal 0.0-0.7 [facility] Comment on above: Performed By: #### I NFLUAB #### [facility] [address] [place] [address] Dr. Deepak Greenfield Eosinophils/100 WBC (Bld) 0.0 % Critically low 0.9-7.0 [facility] Comment on above: Performed By: #### I NFLUAB #### [facility] [address] [place] [address] Dr. Deepak Greenfield Erythrocyte distribution width (RBC) [Ratio] 13.1 % Normal 11.0-15.0 [facility] Comment on above: Performed By: #### I NFLUAB #### [facility] [address] [place] [address] Dr. Deepak Greenfield Hematocrit (Bld) [Volume fraction] 31.4 % Critically low 42.0-54.0 [facility] Comment on above: Performed By: #### I NFLUAB #### [facility] [address] [place] [address] Dr. Deepak Greenfield Hemoglobin (Bld) [Mass/Vol] 10.5 g/dL Critically low 14.0-18.0 [facility] Comment on above: Performed By: #### I NFLUAB #### [facility] [address] [place] [address] Dr. Deepak Greenfield IG # 0.01 10e3/ul Normal 0.00-0.03 [facility] Comment on above: Performed By: #### I NFLUAB #### [facility] [address] [place] [address] Dr. Deepak Greenfield IG % 0.2 % Normal 0.0-0.5 [facility] Comment on above: Performed By: #### I NFLUAB #### [facility] [address] [place] [address] Dr. Deepak Greenfield LYMPH # 1.5 103/ul Normal 1.2-3.8 [facility] Comment on above: Performed By: #### I NFLUAB #### [facility] [address] [place] [address] Dr. Deepak Greenfield Lymphocytes/100 WBC (Bld) 27.5 % Normal 20.5-60.0 [facility] Comment on above: Performed By: #### I NFLUAB #### [facility] [address] [place] [address] Dr. Deepak Greenfield MANUAL DIFF REQ NO Normal [facility] Comment on above: Performed By: #### I NFLUAB #### [facility] [address] [place] [address] Dr. Deepak Greenfield MCH (RBC) [Entitic mass] 32.4 pg Normal 25.9-34.0 [facility] Comment on above: Performed By: #### I NFLUAB #### [facility] [address] [place] [address] Dr. Deepak Greenfield MCHC (RBC) [Mass/Vol] 33.4 g/dL Normal 29.9-35.2 [facility] Comment on above: Performed By: #### I NFLUAB #### [facility] [address] [place] [address] Dr. Deepak Greenfield MCV (RBC) [Entitic vol] 96.9 fL Critically high 80.0-94.0 [facility] Comment on above: Performed By: #### I NFLUAB #### [facility] [address] [place] [address] Dr. Deepak Greenfield MONO # 0.2 103/ul Critically low 0.3-0.8 [facility] Comment on above: Performed By: #### I NFLUAB #### [facility] [address] [place] [address] Dr. Deepak Greenfield Monocytes/100 WBC (Bld) 2.9 % Normal 1.7-12.0 [facility] Comment on above: Performed By: #### I NFLUAB #### [facility] [address] [place] [address] Dr. Deepak Greenfield NEUT # 3.8 103/ul Normal 1.4-6.5 [facility] Comment on above: Performed By: #### I NFLUAB #### [facility] [address] [place] [address] Dr. Deepak Greenfield Neutrophils/100 WBC (Bld) 69.4 % Normal 43.0-75.0 [facility] Comment on above: Performed By: #### I NFLUAB #### [facility] [address] [place] [address] Dr. Deepak Greenfield Platelet mean volume (Bld) [Entitic vol] 9.4 fL Critically low 9.5-13.5 [facility] Comment on above: Performed By: #### I NFLUAB #### [facility] [address] [place] [address] Dr. Deepak Greenfield PLT 256 103/ul Normal 150-450 [facility] Comment on above: Performed By: #### I NFLUAB #### [facility] [address] [place] [address] Dr. Deepak Greenfield RBC 3.24 106/ul Critically low 4.70-6.10 [facility] Comment on above: Performed By: #### I NFLUAB #### [facility] [address] [place] [address] Dr. Deepak Greenfield WBC 5.5 103/ul Normal 4.0-11.0 [facility] Comment on above: Performed By: #### I NFLUAB #### [facility] [address] [place] [address] Dr. Deepak Greenfield Coding Summary.on 07-30-2022 Coding Summary. CD:[id number] W w+PGhlYWQ+HS2UKTRbW12 wpIJwwX0fK2QUYTyJYbtn SBDXZLfZNcNjrdWbLC1qd XNjZXJu IC8+WV3sXHQlMjoffXKns 2W6wOL8X44tnu2lZGkomR F3YIEjYhGjvfqyh2jwrYf 6IDcuNmluOyBt BYDimG40NXH0bC83Wj20q DRzeZJhc6wndUu5XfXlJK ZnNHR2nAzuYJqiv7GqGTJ nF06eyPUde9B0 DKMcuUsnrYWcJgZrwWG6z N6uBWxyghano3gjjbkeHb n7pm23eFNrp0H9zJI1N4J lwgI3YUWpgZTf AajevWXEgR4mxnrgs9hgr qpuHqQdTUTqMAx6WCb6DJ YtaGacVcKvUA00ENV5FZS uyhLaE1PoJFAl mBjqQsZ7s1X8Qg8LF4FUL qjvC9YLMLRIAArbcYJ+PC 39yi58Z0IyVfdyDzb0WQL rAEG9nOZ3eF2l AJWcTRgzv9A9cKD6T3Rvt rTreg8uw9yuMXHkZBwlB4 3oqBRlg4S8HJLfdQJ3HJQ okMurNiDwnX59 Oyc+HYNilEwhx9JsSqcak 0ptt5diyMp5DwzjZZQyey RugJicHMU6u7MgHp3wMFU xeKO0oYM1bT2d KbZiWbP8JYxxW080UoOhn NPoHzlbM63uM5DlxUD+PH DvPau7FLJabNsiDZ3tC0V hZGRpbmctbGVm aJsoGB7mDTAzilheNDCfl F8hCEPsB0b7HlAgGfU9TO lqK3DnWEAeztxnIe94vB1 kLyPvSbR6WKje N3QtwcN6HEXwgLQwHJnqL GD0E64hg6I2VYIbXMSoUG D1oSM3vC1nvSvlbaketJP mdDsgdmVydGlj HHypLSdbY236CDDkbFkkU kNvZGluZyBEYXRlOiAgMD QvMTMvMjAyMzwvdGQ+PHR yBUK3rUygMMZm wEWyOUoqUe0syIlrtXfpV V8wBXYwczohULCviS3tEJ HiwVEbhIzwBO8tSVEfczc qu168AmPhSTM3 ZRKcjZVxQ5DbiN4fViMqB VKmEZQaN4AmsGSaFQeeR3 13NZraXlD8BVOwtfRhS2J sLWFsaWduOiB0 n1L6Gf9Lq1ZcjpuoV2Ikh HHiCyNkHikiODs1Y3CzRn wvdHI+ZQ61QIVuJF56AUm 3KXF4wBuwKTpk DOYxU3ZldJ0iDkIzRYPnE GRkOyc+PHRhYmxlIHdpZH RoPScxMDAlJyBzdHlsZT0 zJd1nMLVkRUEv ySfbbIJxBhTia0btFQKsN GoiCL1hhFasP7KyjZD6RU Hns3z4Vx91B97rR1VhiZQ +XZNrxYQ0hNJ2 tO2yRfItSpA4FEcrE656F mSyvUZtYtxsr1qgl7iksH u9CqV5MGDkalMprKkbFQC 2q8GtFk03D49w IHdpZHRoPSIxNSUiIHZhb Adddo9dlH8kJe0+PGNvbC A8lQC1vP3jWtXpHrG3JCx zD008ZdZcvNBy Oughp0tgn4lxxZh9StBpH VWzzeYhzZokPOA9m7CiZc 60Z1HpfTmcq1MwDdc0jo5 1bLQhj1U9zNX8 S0IqUKQisvrolKGnuTawV E2pSQDlxbphLCWihQ7oOF VcB3i5FmBhRxZ0MXmuY7G goxI7SHErrXHh HUVizWQMtG8mtwfwv2rvb hfmFnPwMTIuJYo6BEk6UZ HehEytZrMiEQT8CtF8AFO 2xSEikY8rpCzr pmrugY6gNmn+XFQ2rBQqb MYFMR1tFjiwqVR+PHRkIH A0kMkjSXpjVNNojV9nKQI zD8w7OtIhVpM1 STjyR0YipyZ4JJZlpDQoX YJfqZSEtG4zkpgvk3xccq hhMqXlUILtDPf0JJo9RVV saWduOiBsZWZ0 HbD7LQN9nAKsxB2ywEste edmsG3uKul+QmlydGggRG U1QBm0C4ZwMvc6UJZzbXr yQY3sqTZiQKej Fo0rmXmxxZchZE2oUFVgj jaik050NoVgd2yuZFUgwE RhNQetITW0T71sp3Y8VCL hQENkYJP0lGA7 dA8ojLgshsoymNVrqCxnc ySojAluIIeaRCuvF094GN PfdIgdIpWgFQi9K0BxGee 2NEFftKllSX5p bXTtCExnNn5drEkcsUqvB P0bAXAuwryrh211JiVhy6 bbPHHjuIXvWRmnSBV6B85 cz0K7HHFmPBCh UQM4cDF4yM0tlQatswuib GVmdDsgdmVydGljYWwtYW ouU411WCIybJwtFfUntOl 0D9ZmTxh8KRSe uNtcNS1voFQlCQtxMm9en HqpwLteVE3oKUUfgbcak6 94TfLkb2ijQKPeiNSgTGk dIMR7Q64bt1V1 RMLoVKXoFXK8eFB7iG5tj GlnbjogbGVmdDsgdmVydG liQFvzQTftY928FMHszQg nPlBhdGllbnQg PJmmTCb1W4MrDdfwsII+P T12XKDuMO79mMDusDQip0 lleKl4UcPmMWVkIDI6zHc rVRkit7OkPUMt B99haDWty7Z0MPQxoGiwu BVkBkFjcQH4cS9nXZpzqu wjn4tbzkrgFygsr6viid0 4tS59F90kLBsn ZHRoPSIzMCUiIHZhbGlnb z6wfY6vIr5+AEWvmJI7kQ P1dQ6lGUVlPzX6OSecY43 9InRvcCIvPjxj x5tvd9lbhEn4KdG3ZFNbm vAgtAhaTEJ3n8FbVx25J0 9sIHdpZHRoPSIyMCUiIHZ tyRmnhw5rcA4t Ii8+FIRbsFU9gTR4cG8cM nBuPcX3HSjgC872XsFgpQ VeUvvtM79jE8GrcSX+PHR gXyf7LAZuzPik TB0hbCSeLIrqCd5mOBF6R nHwByHuEPenN9HnXVOkfu euhwgthGE4EQYeGYQfmH4 5Zo3fnSsrSHWc yZFEgK4hafngz3sjkeyxE tFkOMAfRSa3HAc1NEXflF ubXaNqTJF7WtM2OMR6nFP jvL5sjKwbgbur pP2dY4OkMVLsynhvFb60i X2nWoGdHiG3RQomTdh+U0 2ARFYZRNUJAWXHXuDPDF8 7DI37wYLmm3S7 oGI5Q3ZjWGBgecmqfgaye MZ2KODkOLLooA12mGVrAO jqUz2wy6J1q254PDOpFSC snT75Nc2upIvz MEXvgVZKxU4kdylbh4azb txzCcKqJRGwARl9KWq2UU JtsLunGlSuDPC8HgR3WVZ 8oNAmmM5vbWzk dvxtqE5wVwq+MTAvMTYvM Pd4TPidfZV+IQOiWCZ9oX xsXDpyXYOjoX2yPJHhF1s 8CtUkAuQ9ANji Y7AkPQAiogdgOf05cT3kL jUsRkO0XSrpH4RmnlE9NW TioBBjPSntFFY8H76xe9Q 4EHQwPUNlHVK6 jJI2wY5cdEaiyryytQGdt DsgdmVydGljYWwtYWxpZ2 46IHRvcDsnPjQyIFllYXJ bLJ67TH40sWKm u7N7xTF1C0MpNSBnmiqap fgpoBI1OUTiFRJzfQ20hX KnOSewVm8mr3E2j798STC oPJKohV14Se2v dLzgSEQpoNASwL0gqbxik 1xrwfnrJlXrRXRyGPp9KY k6IGJmeQngWeDyEUJ0JxD 9WWB2mKOovQ3k gDfhtmfhzB4hCnd+TWFsZ TwvdGQ+HSBhGFW5oTtuDX uaIJPkkQ4nPQAnS2n1PvF dJeS2VStsT3Sy KPNvexrxOm72dE9kCkZnF pK5SMqsV5EdsrS4XDYncQ BfEAixPND7J98wc5O7MWT nWBSnNJI8vUU2 mS1qxWljpubqdPLwyMjwr ySguCytWMnrAIubJ735QJ VbbQqnTm71tDVnzKyqrvX 9F9MpJtjvgGL+ VB47EOMhXG59gPPrnXHls 0vziEu0JcZsBZGsVKN7zF khUCrig8JqYOMhK70aaQR fc0B7KDEjbAmr wTKlXdDweUM7xQ3rGRtka nvcz0cilrjaRgige8mhjh 35qR29M00hGQnrLBTyHYY zMCUiIHZhbGln ey9obO5aVr0+XRYvjNV6h VT8uF1oQbFjCzZ7FFeoW1 53UkYxmVYrEdsym5sgv0e nkHs1ThRlANZb woBflNtgMMV5g2YjTs93T 29sIHdpZHRoPSIyMCUiIH IieWjzqj1hlA5gZm7+PC9 ka4tglg26cU27 dHI+QQXmIHI4dLdiPWjlJ YPhpL9jDPidCgK6QOMeRf AxwC39qPDoHDhzSg9qjFm mfPrbKE1eGJIa izkbg185LhAys3acOKMeq SZjKAzsSMF1R16cy1D1GK AqCBZhIYN2rYS3cC2zwYi nbjogbGVmdDsg zkSscCuwYBsiHRjqD678P VTmhMshSsWwuLWrL8jzpp KFCH2ySjirmCS+PHRkIHN 0eWxlPSdwYWRk cY3wKLTzY3f1WaEoVmV9X YucC4VbjkP1ORBjfSCvVP KkoYASxH2zkeylh4wzfrl gIzAwMDAwMDt0 FMn0GCRpzIbdMtLqFBG4K tI0UDK9xWShdL9gpCvvco otfG1uGvz+RklOOjwvdGQ +QFVeXAO2vFrz LXnyFDPprR0yPYJgE7k8G rSoJsQ5PDrgK0OiwoY2JD BedYShBTEhoVAUqP7vxps zr3njlxsoVfFj LDTsLJc1VVz5EOFkkRqdM jMiTLM3HpU9UGW4mCLouS 1vuOocwfdynQ1nNyo+TVJ OOjwvdGQ+PHRk NVA0vOguPHrpLYUfaY7qU RPvL8l7KxAfVbS2VZnzZ1 AshsV3INVgcYIyBVPxpRT FjD1njjzgl4ha gfyxBhOrZERrXJk0PKj0Y NMjlFcfJxJxDDH7JeD9ZE E2yYLbvR2snUsuosrslH7 wOyc+VJE7TRO7 GH42QR22Q1HhEtjezUFbu +PHRhYmxlIHdpZHRoPS rqDRApUiNtcJbuYO1iHb9 yZGVyLWNvbGxh cHNlOiBj (more content not included)... Normal [facility] PROF CHEM 8 (BAS METB)on Anion gap [Moles/Vol] 8.3 mmol/L Normal [facility] Comment on above: Performed By: #### I NFLUAB #### [facility] [address] [place] [address] Dr. Deepak Greenfield Calcium [Mass/Vol] 8.5 mg/dL Normal 8.5-10.1 [facility] Comment on above: Performed By: #### I NFLUAB #### [facility] [address] [address] [address] Deepak Greenfield Chloride [Moles/Vol] 104 mmol/L Normal 98-107 [facility] Comment on above: Performed By: #### I NFLUAB #### [facility] [address] [place] [address] Dr. Deepak Greenfield CO2 [Moles/Vol] 30.0 mmol/L Normal 21.0-32.0 [facility] Comment on above: Performed By: #### I NFLUAB #### [facility] [address] [place] [address] Dr. Deepak Greenfield Creatinine [Mass/Vol] 0.46 mg/dL Critically low 0.70-1.30 [facility] Comment on above: Performed By: #### I NFLUAB #### [facility] [address] [place] [address] Dr. Deepak Greenfield EGFR-AF ANGOLAN >60 Normal >=60 [facility] Comment on above: Performed By: #### I NFLUAB #### [facility] [address] [address] [address] Deepak Greenfield EGFR-NON AF ANGOLAN >60 Normal >=60 [facility] Comment on above: Performed By: #### I NFLUAB #### [facility] [address] [address] [address] Deepak Greenfield Glucose [Mass/Vol] 152 mg/dL Critically high 74-[address] [facility] Comment on above: Performed By: #### I NFLUAB #### [facility] [address] [place] [address] Dr. Deepak Greenfield Potassium [Moles/Vol] 4.3 mmol/L Normal 3.5-5.1 [facility] Comment on above: Performed By: #### I NFLUAB #### [facility] [address] [place] [address] Dr. Deepak Greenfield Sodium [Moles/Vol] 138 mmol/L Normal 136-145 [facility] Comment on above: Performed By: #### I NFLUAB #### [facility] [address] [place] [address] Dr. Deepak Greenfield Urea nitrogen [Mass/Vol] 9.0 mg/dL Normal 7.0-18.0 [facility] Comment on above: Performed By: #### I NFLUAB #### [facility] [address] [place] [address] Dr. Deepak Greenfield Urea nitrogen/Creatinine [Mass ratio] 19.6 mg/mg Normal [facility] Comment on above: Performed By: #### I NFLUAB #### [facility] [address] [place] [address] Dr. Deepak Greenfield AMMONIAon 07-29-2022 Ammonia (P) [Moles/Vol] 69 umol/L Critically high 11-32 [facility] Comment on above: Performed By: #### A MM #### [facility] [address] [place] [address] Dr. Deepak Greenfield CBC AUTO DIFFon 07-29-2022 BASO # 0.0 103/ul Normal 0.0-0.1 [facility] Comment on above: Performed By: #### M G, CMP #### [facility] [address] [place] [address] Dr. Deepak Greenfield Basophils/100 WBC (Bld) 0.2 % Normal 0.2-2.0 [facility] Comment on above: Performed By: #### M G, CMP #### [facility] [address] [place] [address] Dr. Deepak Greenfield EO # 0.0 103/ul Normal 0.0-0.7 [facility] Comment on above: Performed By: #### M G, CMP #### [facility] [address] [place] [address] Dr. Deepak Greenfield Eosinophils/100 WBC (Bld) 0.0 % Critically low 0.9-7.0 [facility] Comment on above: Performed By: #### M G, CMP #### [facility] [address] [place] [address] Dr. Deepak Greenfield Erythrocyte distribution width (RBC) [Ratio] 13.2 % Normal 11.0-15.0 [facility] Comment on above: Performed By: #### M G, CMP #### [facility] [address] [place] [address] Dr. Deepak Greenfield Hematocrit (Bld) [Volume fraction] 33.1 % Critically low 42.0-54.0 [facility] Comment on above: Performed By: #### M G, CMP #### [facility] [address] [place] [address] Dr. Deepak Greenfield Hemoglobin (Bld) [Mass/Vol] 10.8 g/dL Critically low 14.0-18.0 [facility] Comment on above: Performed By: #### M G, CMP #### [facility] [address] [place] [address] Dr. Deepak Greenfield IG # 0.04 10e3/ul Critically high 0.00-0.03 [facility] Comment on above: Performed By: #### M G, CMP #### [facility] [address] [place] [address] Dr. Deepak Greenfield IG % 0.5 % Normal 0.0-0.5 [facility] Comment on above: Performed By: #### M G, CMP #### [facility] [address] [place] [address] Dr. Deepak Greenfield LYMPH # 1.1 103/ul Critically low 1.2-3.8 [facility] Comment on above: Performed By: #### M G, CMP #### [facility] [address] [place] [address] Dr. Deepak Greenfield Lymphocytes/100 WBC (Bld) 13.6 % Critically low 20.5-60.0 [facility] Comment on above: Performed By: #### M G, CMP #### [facility] [address] [place] [address] Dr. Deepak Greenfield MANUAL DIFF REQ NO Normal [facility] Comment on above: Performed By: #### M G, CMP #### [facility] [address] [place] [address] Dr. Deepak Greenfield MCH (RBC) [Entitic mass] 32.2 pg Normal 25.9-34.0 [facility] Comment on above: Performed By: #### M G, CMP #### [facility] [address] [place] [address] Dr. Deepak Greenfield MCHC (RBC) [Mass/Vol] 32.6 g/dL Normal 29.9-35.2 [facility] Comment on above: Performed By: #### M G, CMP #### [facility] [address] [place] [address] Dr. Deepak Greenfield MCV (RBC) [Entitic vol] 98.8 fL Critically high 80.0-94.0 [facility] Comment on above: Performed By: #### M G, CMP #### [facility] [address] [place] [address] Dr. Deepak Greenfield MONO # 0.3 103/ul Normal 0.3-0.8 [facility] Comment on above: Performed By: #### M G, CMP #### [facility] [address] [place] [address] Dr. Deepak Greenfield Monocytes/100 WBC (Bld) 3.8 % Normal 1.7-12.0 [facility] Comment on above: Performed By: #### M G, CMP #### [facility] [address] [place] [address] Dr. Deepak Greenfield NEUT # 6.7 103/ul Critically high 1.4-6.5 [facility] Comment on above: Performed By: #### M G, CMP #### [facility] [address] [address] [address] Deepak Greenfield Neutrophils/100 WBC (Bld) 81.9 % Critically high 43.0-75.0 [facility] Comment on above: Performed By: #### M G, CMP #### [facility] [address] [address] [address] Deepak Greenfield Platelet mean volume (Bld) [Entitic vol] 9.6 fL Normal 9.5-13.5 [facility] Comment on above: Performed By: #### M G, CMP #### [facility] [address] [address] [address] Deepak Greenfield PLT 257 103/ul Normal 150-450 [facility] Comment on above: Performed By: #### M G, CMP #### [facility] [address] [place] [address] Dr. Deepak Greenfield RBC 3.35 106/ul Critically low 4.70-6.10 [facility] Comment on above: Performed By: #### M G, CMP #### [facility] [address] [address] [address] Deepak Greenfield WBC 8.2 103/ul Normal 4.0-11.0 [facility] Comment on above: Performed By: #### M G, CMP #### [facility] [address] [place] [address] Dr. Deepak Greenfield LACTATE/LACTIC ACIDon 2022 Lactate [Moles/Vol] 1.1 mmol/L Normal 0.4-2.0 [facility] Comment on above: Performed By: #### I NFLUAB #### [facility] [address] [address] [address] Deepak Greenfield PROF CHEM 8 (BAS METB)on Anion gap [Moles/Vol] 9.4 mmol/L Normal [facility] Comment on above: Performed By: #### I NFLUAB #### [facility] [address] [address] [address] Deepak Greenfield Calcium [Mass/Vol] 8.0 mg/dL Critically low 8.5-10.1 Th [facility] Comment on above: Performed By: #### I NFLUAB #### [facility] [address] [place] [address] Dr. Deepak Greenfield Chloride [Moles/Vol] 105 mmol/L Normal 98-107 [facility] Comment on above: Performed By: #### I NFLUAB #### [facility] [address] [address] [address] Deepak Greenfield CO2 [Moles/Vol] 30.7 mmol/L Normal 21.0-32.0 [facility] Comment on above: Performed By: #### I NFLUAB #### [facility] [address] [place] [address] Dr. Deepak Greenfield Creatinine [Mass/Vol] 0.66 mg/dL Critically low 0.70-1.30 [facility] Comment on above: Performed By: #### I NFLUAB #### [facility] [address] [place] [address] Dr. Deepak Greenfield EGFR-AF ANGOLAN >60 Normal >=60 [facility] Comment on above: Performed By: #### I NFLUAB #### [facility] [address] [place] [address] Dr. Deepak Greenfield EGFR-NON AF ANGOLAN >60 Normal >=60 [facility] Comment on above: Performed By: #### I NFLUAB #### [facility] [address] [place] [address] Dr. Deepak Greenfield Glucose [Mass/Vol] 177 mg/dL Critically high 74-106 [facility] Comment on above: Performed By: #### I NFLUAB #### [facility] [address] [address] [address] Deepak Greenfield Potassium [Moles/Vol] 4.1 mmol/L Normal 3.5-5.1 [facility] Comment on above: Performed By: #### I NFLUAB #### [facility] Laboratory [address] [place] [address] Dr. Deepak Greenfield Sodium [Moles/Vol] 141 mmol/L Normal 136-145 [facility] Comment on above: Performed By: #### I NFLUAB #### [facility] [address] [place] [address] Dr. Deepak Greenfield Urea nitrogen [Mass/Vol] 9.0 mg/dL Normal 7.0-18.0 [facility] Comment on above: Performed By: #### I NFLUAB #### [facility] [address] [place] [address] Dr. Deepak Greenfield Urea nitrogen/Creatinine [Mass ratio] 13.6 mg/mg Normal [facility] Comment on above: Performed By: #### I NFLUAB #### [facility] [address] [place] [address] Dr. Deepak Greenfield AMMONIAon 07-28-2022 Ammonia (P) [Moles/Vol] 68 umol/L Critically high 11-32 [facility] Comment on above: Performed By: #### B MP #### [facility] [address] [place] [address] Dr. Deepak Greenfield CBC AUTO DIFFon 07-28-2022 BASO # 0.0 103/ul Normal 0.0-0.1 [facility] Comment on above: Performed By: #### C BC #### [facility] [address] [place] [address] Dr. Deepak Greenfield Basophils/100 WBC (Bld) 0.3 % Normal 0.2-2.0 [facility] Comment on above: Performed By: #### C BC #### [facility] [address] [place] [address] Dr. Deepak Greenfield EO # 0.0 103/ul Normal 0.0-0.7 [facility] Comment on above: Performed By: #### C BC #### [facility] [address] [place] [address] Dr. Deepak Greenfield Eosinophils/100 WBC (Bld) 0.0 % Critically low 0.9-7.0 [facility] Comment on above: Performed By: #### C BC #### [facility] [address] [place] [address] Dr. Deepak Greenfield Erythrocyte distribution width (RBC) [Ratio] 13.3 % Normal 11.0-15.0 [facility] Comment on above: Performed By: #### C BC #### [facility] [address] [place] [address] Dr. Deepak Greenfield Hematocrit (Bld) [Volume fraction] 37.0 % Critically low 42.0-54.0 [facility] Comment on above: Performed By: #### C BC #### [facility] [address] [place] [address] Dr. Deepak Greenfield Hemoglobin (Bld) [Mass/Vol] 12.3 g/dL Critically low 14.0-18.0 [facility] Comment on above: Performed By: #### C BC #### [facility] [address] [place] [address] Dr. Deepak Greenfield IG # 0.06 10e3/ul Critically high 0.00-0.03 [facility] Comment on above: Performed By: #### C BC #### [facility] [address] [place] [address] Dr. Deepak Greenfield IG % 0.5 % Normal 0.0-0.5 [facility] Comment on above: Performed By: #### C BC #### [facility] [address] [place] [address] Dr. Deepak Greenfield LYMPH # 2.9 103/ul Normal 1.2-3.8 [facility] Comment on above: Performed By: #### C BC #### [facility] [address] [place] [address] Dr. Deepak Greenfield Lymphocytes/100 WBC (Bld) 23.5 % Normal 20.5-60.0 [facility] Comment on above: Performed By: #### C BC #### [facility] [address] [place] [address] Dr. Deepak Greenfield MANUAL DIFF REQ NO Normal [facility] Comment on above: Performed By: #### C BC #### [facility] [address] [place] [address] Dr. Deepak Greenfield MCH (RBC) [Entitic mass] 32.4 pg Normal 25.9-34.0 [facility] Comment on above: Performed By: #### C BC #### [facility] [address] [place] [address] Dr. Deepak Greenfield MCHC (RBC) [Mass/Vol] 33.2 g/dL Normal 29.9-35.2 [facility] Comment on above: Performed By: #### C BC #### [facility] [address] [place] [address] Dr. Deepak Greenfield MCV (RBC) [Entitic vol] 97.4 fL Critically high 80.0-94.0 [facility] Comment on above: Performed By: #### C BC #### [facility] [address] [place] [address] Dr. Deepak Greenfield MONO # 1.0 103/ul Critically high 0.3-0.8 [facility] Comment on above: Performed By: #### C BC #### [facility] [address] [place] [address] Dr. Deepak Greenfield Monocytes/100 WBC (Bld) 8.0 % Normal 1.7-12.0 [facility] Comment on above: Performed By: #### C BC #### [facility] [address] [place] [address] Dr. Deepak Greenfield NEUT # 8.3 103/ul Critically high 1.4-6.5 [facility] Comment on above: Performed By: #### C BC #### [facility] [address] [place] [address] Dr. Deepak Greenfield Neutrophils/100 WBC (Bld) 67.7 % Normal 43.0-75.0 [facility] Comment on above: Performed By: #### C BC #### [facility] [address] [place] [address] Dr. Deepak Greenfield Platelet mean volume (Bld) [Entitic vol] 9.7 fL Normal 9.5-13.5 [facility] Comment on above: Performed By: #### C BC #### [facility] [address] [place] [address] Dr. Deepak Greenfield PLT 325 103/ul Normal 150-450 [facility] Comment on above: Performed By: #### C BC #### [facility] [address] [place] [address] Dr. Deepak Greenfield RBC 3.80 106/ul Critically low 4.70-6.10 [facility] Comment on above: Performed By: #### C BC #### [facility] [address] [place] [address] Dr. Deepak Greenfield WBC 12.2 103/ul Critically high 4.0-11.0 [facility] Comment on above: Performed By: #### C BC #### [facility] [address] [place] [address] Dr. Deepak Greenfield CULTURE BLOODon 07-28-2022 Microscopic examination of blood, culture Culture Observations: NO GROWTH AT 5 DAYS. Normal [facility] Comment on above: Performed By: #### B [id number] #### [facility] [address] [place] [address] Dr. Deepak Greenfield Microscopic examination of blood, culture Culture Observations: NO GROWTH AT 5 DAYS. [facility] Comment on above: Performed By: #### C BC #### [facility] [address] [place] [address] Dr. Deepak Greenfield LACTATE/LACTIC ACIDon 2022 Lactate [Moles/Vol] 2.5 mmol/L Critically high 0.4-2.0 [facility] Comment on above: Performed By: #### C VDTBH #### [facility] [address] [place] [address] Dr. Deepak Greenfield PROF 14(COMP METB)on 023 Albumin [Mass/Vol] 3.1 g/dL Critically low 3.4-5.0 [facility] Comment on above: Performed By: #### C BC #### [facility] [address] [place] [address] Dr. Deepak Greenfield Albumin/Globulin [Mass ratio] 0.7 {ratio} Normal [facility] Comment on above: Performed By: #### C BC #### [facility] [address] [address] [address] Deepak Greenfield ALP [Catalytic activity/Vol] 51 U/L Normal 46-116 [facility] Comment on above: Performed By: #### C BC #### [facility] [address] [place] [address] Dr. Deepak Greenfield ALT [Catalytic activity/Vol] 106 U/L Critically high 16-63 [facility] Comment on above: Performed By: #### C BC #### [facility] [address] [address] [address] Deepak Greenfield Anion gap [Moles/Vol] 14.2 mmol/L Normal [facility] Comment on above: Performed By: #### C BC #### [facility] [address] [place] [address] Dr. Deepak Greenfield AST [Catalytic activity/Vol] 81 U/L Critically high 15-37 [facility] Comment on above: Performed By: #### C BC #### [facility] [address] [place] [address] Dr. Deepak Greenfield Bilirubin [Mass/Vol] 0.4 mg/dL Normal 0.2-1.0 [facility] Comment on above: Performed By: #### C BC #### [facility] [address] [place] [address] Dr. Deepak Greenfield Calcium [Mass/Vol] 8.9 mg/dL Normal 8.5-10.1 [facility] Comment on above: Performed By: #### C BC #### [facility] [address] [place] [address] Dr. Deepak Greenfield Chloride [Moles/Vol] 105 mmol/L Normal 98-107 [facility] Comment on above: Performed By: #### C BC #### [facility] [address] [place] [address] Dr. Deepak Greenfield CO2 [Moles/Vol] 27.9 mmol/L Normal 21.0-32.0 [facility] Comment on above: Performed By: #### C BC #### [facility] [address] [place] [address] Dr. Deepak Greenfield Creatinine [Mass/Vol] 0.77 mg/dL Normal 0.70-1.30 [facility] Comment on above: Performed By: #### C BC #### [facility] [address] [address] [address] Deepak Greenfield EGFR-AF ANGOLAN >60 Normal >=60 [facility] Comment on above: Performed By: #### C BC #### [facility] [address] [address] [address] Deepak Greenfield EGFR-NON AF ANGOLAN >60 Normal >=60 [facility] Comment on above: Performed By: #### C BC #### [facility] [address] [address] [address] Deepak Greenfield Globulin (S) [Mass/Vol] 4.3 g/dL Normal [facility] Comment on above: Performed By: #### C BC #### [facility] [address] [address] [address] Deepak Greenfield Glucose [Mass/Vol] 162 mg/dL Critically high 74-106 [facility] Comment on above: Performed By: #### C BC #### [facility] [address] [address] [address] Deepak Greenfield Potassium [Moles/Vol] 4.1 mmol/L Normal 3.5-5.1 [facility] Comment on above: Performed By: #### C BC #### [facility] [address] [address] [address] Deepak Greenfield Protein [Mass/Vol] 7.4 g/dL Normal 6.4-8.2 [facility] Comment on above: Performed By: #### C BC #### [facility] [address] [address] [address] Deepak Greenfield Sodium [Moles/Vol] 143 mmol/L Normal 136-145 [facility] Comment on above: Performed By: #### C BC #### [facility] [address] [address] [address] Deepak Greenfield Urea nitrogen [Mass/Vol] 12.0 mg/dL Normal 7.0-18.0 [facility] Comment on above: Performed By: #### C BC #### [facility] [address] [place] [address] Dr. Deepak Greenfield Urea nitrogen/Creatinine [Mass ratio] 15.6 mg/mg Normal [facility] Comment on above: Performed By: #### C BC #### [facility] [address] [place] [address] Dr. Deepak Greenfield RESPIRATORY PANEL PLUSon Adenovirus Not detected Normal NOT DETECTED [facility] Comment on above: Performed By: #### B MP #### [facility] [address] [place] [address] Dr. Deepak Murphy. Parapertusis Not detected Normal NOT DETECTED [facility] Comment on above: Performed By: #### B MP #### [facility] [address] [place] [address] Dr. Deepak Murphy. Pertussis Not detected Normal NOT DETECTED [facility] Comment on above: Performed By: #### B MP #### [facility] [address] [place] [address] Dr. Deepak Greenfield Chlamydia Pneumoniae Not detected Normal NOT DETECTED [facility] Comment on above: Performed By: #### B MP #### [facility] [address] [place] [address] Dr. Deepak Greenfield Coronavirus 229E Not detected Normal NOT DETECTED [facility] Comment on above: Performed By: #### B MP #### [facility] [address] [place] [address] Dr. Deepak Greenfield Coronavirus HKU1 Not detected Normal NOT DETECTED [facility] Comment on above: Performed By: #### B MP #### [facility] [address] [place] [address] Dr. Deepak Greenfield Coronavirus NL63 Not detected Normal NOT DETECTED [facility] Comment on above: Performed By: #### B MP #### [facility] [address] [place] [address] Dr. Deepak Greenfield Coronavirus OC43 Not detected Normal NOT DETECTED [facility] Comment on above: Performed By: #### B MP #### [facility] [address] [address] [address] Deepak Greenfield Influenza A H1 Not detected Normal NOT DETECTED [facility] Comment on above: Performed By: #### B MP #### [facility] [address] [address] [address] Deepak Greenfield Influenza A H1 2009 Not detected Normal NOT DETECTED [facility] Comment on above: Performed By: #### B MP #### [facility] [address] [address] [address] Deepak Greenfield Influenza A H3 Not detected Normal NOT DETECTED [facility] Comment on above: Performed By: #### B MP #### [facility] [address] [address] [address] Deepak Greenfield Influenza B Not detected Normal NOT DETECTED [facility] Comment on above: Performed By: #### B MP #### [facility] [address] [address] [address] Deepak Greenfield Metapneumovirus Detected Abnormal NOT DETECTED The [facility] Comment on above: Performed By: #### B MP #### [facility] [address] [address] [address] Deepak Greenfield Mycoplas. Pneumoniae Not detected Normal NOT DETECTED [facility] Comment on above: Performed By: #### B MP #### [facility] [address] [place] [address] Dr. Deepak Greenfield Parainfluenza 1 Not detected Normal NOT DETECTED [facility] Comment on above: Performed By: #### B MP #### [facility] [address] [place] [address] Dr. Deepak Greenfield Parainfluenza 2 Not detected Normal NOT DETECTED [facility] Comment on above: Performed By: #### B MP #### [facility] [address] [address] [address] Deepak Greenfield Parainfluenza 3 Not detected Normal NOT DETECTED [facility] Comment on above: Performed By: #### B MP #### [facility] [address] [address] [address] Deepak Greenfield Parainfluenza 4 Not detected Normal NOT DETECTED [facility] Comment on above: Performed By: #### B MP #### [facility] [address] [place] [address] Dr. Deepak Greenfield Rhino/Enterovirus Not detected Normal NOT DETECTED [facility] Comment on above: Performed By: #### B MP #### [facility] [address] [place] [address] Dr. Deepak Greenfield RP2 Header 1 RESPIRATORY PANEL: VIRUSES Normal [facility] Comment on above: Performed By: #### B MP #### [facility] [address] [place] [address] Dr. Deepak Greenfield RP2 Header 2 RESPIRATORY PANEL: BACTERIA Normal [facility] Comment on above: Performed By: #### B MP #### [facility] [address] [place] [address] Dr. Deepak Greenfield RSV Not detected Normal NOT DETECTED [facility] Comment on above: Performed By: #### B MP #### [facility] [address] [place] [address] Dr. Deepak Greenfield SARS-CoV-2 (COVID-19) RNA CINDY+probe Ql (Unsp spec) Not detected Normal NOT DETECTED [facility] Comment on above: Performed By: #### B MP #### [facility] [address] [place] [address] Dr. Deepak Greenfield XR CHEST 1 Von [...] 2 view abdomen. Electronically authenticated by: [employer] LORE CHRIS Date: 2022-07-28 20:23 Normal [facility] AMMONIAon 07-27-2022 Ammonia (P) [Moles/Vol] 76 umol/L Critically high 11-32 [facility] Comment on above: Performed By: #### M G, CMP #### [facility] [address] [place] [address] Dr. Deepak Greenfeild CBC W MANUAL DIFFon 07-28-19 23 ATYPICAL LYMPH # Normal [facility] Comment on above: Performed By: #### M G, CMP #### [facility] [address] [place] [address] Dr. Deepak Greenfield ATYPICAL LYMPH % Normal [facility] Comment on above: Performed By: #### M G, CMP #### [facility] [address] [place] [address] Dr. Deepak Greenfield BAND # 0.4 103/ul Critically high 0.0-0.3 [facility] Comment on above: Performed By: #### M G, CMP #### [facility] [address] [place] [address] Dr. Deepak Greenfield BAND % 4 % Normal 0-5 [facility] Comment on above: Performed By: #### M G, CMP #### [facility] [address] [place] [address] Dr. Deepak Greenfield BASOM # 0.00 103/ul Normal 0.00-0.10 [facility] Comment on above: Performed By: #### M G, CMP #### [facility] [address] [place] [address] Dr. Deepak Greenfield BASOM % 0.0 % Critically low 0.2-2.0 [facility] Comment on above: Performed By: #### M G, CMP #### [facility] [address] [place] [address] Dr. Deepak Greenfield BLAST # Normal [facility] Comment on above: Performed By: #### M G, CMP #### [facility] [address] [place] [address] Dr. Deepak Greenfield BLAST % Normal [facility] Comment on above: Performed By: #### M G, CMP #### [facility] [address] [address] [address] Deepak Greenfield CORRECTED WBC Normal 4.0-11.0 [facility] Comment on above: Performed By: #### M G, CMP #### [facility] [address] [address] [address] Deepak Greenfield EOS # 0.00 103/ul Normal 0.00-0.70 [facility] Comment on above: Performed By: #### M G, CMP #### [facility] [address] [address] [address] Deepak Greenfield EOS% 0.0 % Critically low 0.9-7.0 [facility] Comment on above: Performed By: #### M G, CMP #### [facility] [address] [address] [address] Deepak Greenfield HCT 29.6 % Critically low 42.0-54.0 [facility] Comment on above: Performed By: #### M G, CMP #### [facility] [address] [address] [address] Deepak Greenfield HGB 10.4 g/dl Critically low 14.0-18.0 [facility] Comment on above: Performed By: #### M G, CMP #### [facility] [address] [address] [address] Deepak Greenfield LYMPHM # 0.71 103/ul Critically low 1.20-3.80 [facility] Comment on above: Performed By: #### M G, CMP #### [facility] [address] [address] [address] Deepak Greenfield LYMPHM% 8.0 % Critically low 20.5-60.0 [facility] Comment on above: Performed By: #### M G, CMP #### [facility] [address] [address] [address] Deepak Greenfield MCH 33.0 pg Normal 25.9-34.0 [facility] Comment on above: Performed By: #### M G, CMP #### [facility] [address] [place] [address] Dr. Deepak Greenfield MCHC 35.1 g/dl Normal 29.9-35.2 [facility] Comment on above: Performed By: #### M G, CMP #### [facility] [address] [place] [address] Dr. Deepak Greenfield MCV 94.0 fL Normal 80.0-94.0 [facility] Comment on above: Performed By: #### M G, CMP #### [facility] [address] [place] [address] Dr. Deepak Greenfield METAMYELOCYTE # Normal [facility] Comment on above: Performed By: #### M G, CMP #### [facility] [address] [place] [address] Dr. Deepak Greenfield METAMYELOCYTE % Normal [facility] Comment on above: Performed By: #### M G, CMP #### [facility] [address] [place] [address] Dr. Deepak Greenfield MONOM# 0.71 103/ul Normal 0.30-0.80 [facility] Comment on above: Performed By: #### M G, CMP #### [facility] [address] [place] [address] Dr. Deepak Greenfield MONOM% 8.0 % Normal 1.7-12.0 [facility] Comment on above: Performed By: #### M G, CMP #### [facility] [address] [place] [address] Dr. Deepak Greenfield MPV 9.6 fL Normal 9.5-13.5 [facility] Comment on above: Performed By: #### M G, CMP #### [facility] [address] [place] [address] Dr. Deepak Greenfield MYELOCYTE # Normal [facility] Comment on above: Performed By: #### M G, CMP #### [facility] [address] [place] [address] Dr. Deepak Greenfield MYELOCYTE % Normal [facility] Comment on above: Performed By: #### M G, CMP #### [facility] [address] [address] [address] Deepak Greenfield NR Normal [facility] Comment on above: Performed By: #### M G, CMP #### [facility] [address] [address] [address] Deepak Greenfield PLT 267 103/ul Normal 150-450 [facility] Comment on above: Performed By: #### M G, CMP #### [facility] [address] [address] [address] Deepak Greenfield RBC 3.15 106/ul Critically low 4.70-6.10 [facility] Comment on above: Performed By: #### M G, CMP #### [facility] [address] [place] [address] Dr. Deepak Greenfield RDW 12.9 % Normal 11.0-15.0 [facility] Comment on above: Performed By: #### M G, CMP #### [facility] [address] [place] [address] Dr. Deepak Greenfield SEG # 7.12 103/ul Critically high 1.40-6.50 [facility] Comment on above: Performed By: #### M G, CMP #### [facility] [address] [place] [address] Dr. Deepak Greenfield SEG % 80.0 % Critically high 43.0-75.0 [facility] Comment on above: Performed By: #### M G, CMP #### [facility] [address] [place] [address] Dr. Deepak Greenfield WBC 8.9 103/ul Normal 4.0-11.0 [facility] Comment on above: Performed By: #### M G, CMP #### [facility] [address] [place] [address] Dr. Deepak Greenfield PROF CHEM 8 (BAS METB)on Anion gap [Moles/Vol] 12.4 mmol/L Normal [facility] Comment on above: Performed By: #### C BC #### [facility] [address] [address] [address] Deepak Greenfield Calcium [Mass/Vol] 8.2 mg/dL Critically low 8.5-10.1 [facility] Comment on above: Performed By: #### C BC #### [facility] [address] [address] [address] Deepak Greenfield Chloride [Moles/Vol] 101 mmol/L Normal 98-107 [facility] Comment on above: Performed By: #### C BC #### [facility] [address] [place] [address] Dr. Deepak Greenfield CO2 [Moles/Vol] 25.0 mmol/L Normal 21.0-32.0 [facility] Comment on above: Performed By: #### C BC #### [facility] [address] [place] [address] Dr. Deepak Greenfield Creatinine [Mass/Vol] 0.53 mg/dL Critically low 0.70-1.30 [facility] Comment on above: Performed By: #### C BC #### [facility] [address] [place] [address] Dr. Deepak Greenfield EGFR-AF ANGOLAN >60 Normal >=60 [facility] Comment on above: Performed By: #### C BC #### [facility] [address] [place] [address] Dr. Deepak Gerenfield EGFR-NON AF ANGOLAN >60 Normal >=60 [facility] Comment on above: Performed By: #### C BC #### [facility] [address] [place] [address] Dr. Deepak Greenfield Glucose [Mass/Vol] 161 mg/dL Critically high 74-106 [facility] Comment on above: Performed By: #### C BC #### [facility] [address] [place] [address] Dr. Deepak Greenfield Potassium [Moles/Vol] 4.4 mmol/L Normal 3.5-5.1 [facility] Comment on above: Performed By: #### C BC #### [facility] [address] [place] [address] Dr. Deepak Greenfield Sodium [Moles/Vol] 134 mmol/L Critically low 136-145 [facility] Comment on above: Performed By: #### C BC #### [facility] [address] [place] [address] Dr. Deepak Greenfield Urea nitrogen [Mass/Vol] 13.0 mg/dL Normal 7.0-18.0 [facility] Comment on above: Performed By: #### C BC #### [facility] [address] [place] [address] Dr. Deepak Greenfield Urea nitrogen/Creatinine [Mass ratio] 24.5 mg/mg Normal [facility] Comment on above: Performed By: #### C BC #### [facility] [address] [place] [address] Dr. Deepak Greenfield AMMONIAon 07-26-2022 Ammonia (P) [Moles/Vol] 56 umol/L Critically high 11-32 [facility] Comment on above: Performed By: #### M G, CMP #### [facility] [address] [place] [address] Dr. Deepak Greenfield CARDIAC BEATRIS ADMITon 023 CK [Catalytic activity/Vol] 83 U/L Normal 39-308 [facility] Comment on above: Performed By: #### B MP #### [facility] [address] [place] [address] Dr. Deepak Greenfield CK.MB [Mass/Vol] 0.86 ng/mL Normal <=3.60 [facility] Comment on above: Performed By: #### B MP #### [facility] [address] [place] [address] Dr. Deepak Greenfield HSTROP 7.4 pg/mL Normal 4.0-76.1 [facility] Comment on above: Result Comment: CUT- OFF POINTS HAVE BEEN ESTABLISHED BASED ON THE FOURTH UNIVERSAL DEFINITIONS OF MYOCARDIAL INFARCTION. THE UPPER REFERENCE LIMIT (URL) OF TROPONIN, DEFINED THE 99TH PERCENTILE OF cTnI DISTRIBUTION IN A REFERENCE POPULATION, HAS BEEN CONFIRMED THE DECISION THRESHOLD FOR NE DIAGNOSIS. Performed By: #### B MP #### [facility] [address] [place] [address] Dr. Deepak Greenfield VALE 46 ng/mL Normal 16-96 [facility] Comment on above: Performed By: #### B MP #### [facility] [address] [place] [address] Dr. Deepak Greenfield CBC AUTO DIFFon 07-26-2022 BASO # 0.1 103/ul Normal 0.0-0.1 [facility] Comment on above: Performed By: #### M G, CMP #### [facility] [address] [place] [address] Dr. Deepak Greenfield Basophils/100 WBC (Bld) 0.5 % Normal 0.2-2.0 [facility] Comment on above: Performed By: #### M G, CMP #### [facility] [address] [place] [address] Dr. Deepak Greenfield EO # 0.2 103/ul Normal 0.0-0.7 [facility] Comment on above: Performed By: #### M G, CMP #### [facility] [address] [place] [address] Dr. Deepak Greenfield Eosinophils/100 WBC (Bld) 2.1 % Normal 0.9-7.0 [facility] Comment on above: Performed By: #### M G, CMP #### [facility] [address] [place] [address] Dr. Deepak Greenfield Erythrocyte distribution width (RBC) [Ratio] 13.2 % Normal 11.0-15.0 [facility] Comment on above: Performed By: #### M G, CMP #### [facility] [address] [place] [address] Dr. Deepak Greenfield Hematocrit (Bld) [Volume fraction] 36.7 % Critically low 42.0-54.0 [facility] Comment on above: Performed By: #### M G, CMP #### [facility] [address] [place] [address] Dr. Deepak Greenfield Hemoglobin (Bld) [Mass/Vol] 12.4 g/dL Critically low 14.0-18.0 [facility] Comment on above: Performed By: #### M G, CMP #### [facility] [address] [address] [address] Deepak Greenfield IG # 0.04 10e3/ul Critically high 0.00-0.03 [facility] Comment on above: Performed By: #### M G, CMP #### [facility] [address] [address] [address] Deepak Greenfield IG % 0.4 % Normal 0.0-0.5 [facility] Comment on above: Performed By: #### M G, CMP #### [facility] [address] [address] [address] Deepak Greenfield LYMPH # 1.7 103/ul Normal 1.2-3.8 [facility] Comment on above: Performed By: #### M G, CMP #### [facility] [address] [place] [address] Dr. Deepak Greenfield Lymphocytes/100 WBC (Bld) 15.6 % Critically low 20.5-60.0 [facility] Comment on above: Performed By: #### M G, CMP #### [facility] [address] [place] [address] Dr. Deepak Greenfield MANUAL DIFF REQ NO Normal [facility] Comment on above: Performed By: #### M G, CMP #### [facility] [address] [place] [address] Dr. Deepak Greenfield MCH (RBC) [Entitic mass] 32.5 pg Normal 25.9-34.0 [facility] Comment on above: Performed By: #### M G, CMP #### [facility] [address] [address] [address] Deepak Greenfield MCHC (RBC) [Mass/Vol] 33.8 g/dL Normal 29.9-35.2 [facility] Comment on above: Performed By: #### M G, CMP #### [facility] [address] [place] [address] Dr. Deepak Greenfield MCV (RBC) [Entitic vol] 96.3 fL Critically high 80.0-94.0 [facility] Comment on above: Performed By: #### M G, CMP #### [facility] [address] [address] [address] Deepak Greenfield MONO # 1.4 103/ul Critically high 0.3-0.8 [facility] Comment on above: Performed By: #### M G, CMP #### [facility] [address] [address] [address] Deepak Greenfield Monocytes/100 WBC (Bld) 12.8 % Critically high 1.7-12.0 [facility] Comment on above: Performed By: #### M G, CMP #### [facility] [address] [address] [address] Deepak Greenfield NEUT # 7.4 103/ul Critically high 1.4-6.5 [facility] Comment on above: Performed By: #### M G, CMP #### [facility] [address] [place] [address] Dr. Deepak Greenfield Neutrophils/100 WBC (Bld) 68.6 % Normal 43.0-75.0 [facility] Comment on above: Performed By: #### M G, CMP #### [facility] [address] [place] [address] Dr. Deepak Greenfield Platelet mean volume (Bld) [Entitic vol] 9.5 fL Normal 9.5-13.5 [facility] Comment on above: Performed By: #### M G, CMP #### [facility] [address] [place] [address] Dr. Deepak Greenfield PLT 314 103/ul Normal 150-450 [facility] Comment on above: Performed By: #### M G, CMP #### [facility] [address] [place] [address] Dr. Deepak Greenfield RBC 3.81 106/ul Critically low 4.70-6.10 [facility] Comment on above: Performed By: #### M G, CMP #### [facility] [address] [address] [address] Deepak Greenfield WBC 10.8 103/ul Normal 4.0-11.0 [facility] Comment on above: Performed By: #### M G, CMP #### [facility] [address] [place] [address] Dr. Deepak Greenfield Covid-19 PCR (CVDTB)on SARS-CoV-2 (COVID-19) RNA CINDY+probe Ql (Unsp spec) Not detected Normal NOT DETECTED [facility] Comment on above: Result Comment: [...] for this test is supported by the Lead Vulcanizing Operator of Health and Human Service's declaration that [...] used). Performed By: #### C VDTBH #### [facility] [address] [place] [address] Dr. Deepak Greenfield INFLUENZA A [facility] B [facility] Normal [facility] Comment on above: Result Comment: Nega tive for Flu A protein angiten. Infection due to Flu A cannot be ruled out. Flu A angiten in the sample may be below the detection limit of the test. Performed By: #### I NFLUAB #### [facility] [address] [place] [address] Dr. Deepak Greenfield INFLUBNEG SEE BELOW Normal [facility] Comment on above: Result Comment: Nega tive for Flu B protein antigen. Infection due to Flu B cannot be ruled out. Flu B antigen in the sample may be below the detection limit of the test. Performed By: #### I NFLUAB #### [facility] [address] [place] [address] Dr. Deepak Greenfield INFLUENZA A AG Negative Normal NEGATIVE SEE COMMENT [facility] Comment on above: Performed By: #### I NFLUAB #### [facility] [address] [place] [address] Dr. Deepak Greenfield INFLUENZA B AG Negative Normal NEGATIVE SEE COMMENT [facility] Comment on above: Performed By: #### I NFLUAB #### [facility] [address] [place] [address] Dr. Deepak Greenfield LACTATE/LACTIC ACIDon 2022 Lactate [Moles/Vol] 1.2 mmol/L Normal 0.4-2.0 [facility] Comment on above: Performed By: #### M G, CMP #### [facility] [address] [place] [address] Dr. Deepak Greenfield PROF 14(COMP METB)on 023 Albumin [Mass/Vol] 3.3 g/dL Critically low 3.4-5.0 [facility] Comment on above: Performed By: #### B MP #### [facility] [address] [place] [address] Dr. Deepak Greenfield Albumin/Globulin [Mass ratio] 0.8 {ratio} Normal [facility] Comment on above: Performed By: #### B MP #### [facility] [address] [place] [address] Dr. Deepak Greenfield ALP [Catalytic activity/Vol] 45 U/L Critically low 46-116 [facility] Comment on above: Performed By: #### B MP #### [facility] [address] [place] [address] Dr. Deepak Greenfield ALT [Catalytic activity/Vol] 114 U/L Critically high 16-63 [facility] Comment on above: Performed By: #### B MP #### [facility] [address] [place] [address] Dr. Deepak Greenfield Anion gap [Moles/Vol] 14.5 mmol/L Normal [facility] Comment on above: Performed By: #### B MP #### [facility] [address] [place] [address] Dr. Deepak Greenfield AST [Catalytic activity/Vol] 71 U/L Critically high 15-37 [facility] Comment on above: Performed By: #### B MP #### [facility] [address] [place] [address] Dr. Deepak Greenfield Bilirubin [Mass/Vol] 0.7 mg/dL Normal 0.2-1.0 [facility] Comment on above: Performed By: #### B MP #### [facility] [address] [address] [address] Deepak Greenfield Calcium [Mass/Vol] 9.1 mg/dL Normal 8.5-10.1 [facility] Comment on above: Performed By: #### B MP #### [facility] [address] [place] [address] Dr. Deepak Greenfield Chloride [Moles/Vol] 98 mmol/L Normal 98-107 [facility] Comment on above: Performed By: #### B MP #### [facility] [address] [place] [address] Dr. Deepak Greenfield CO2 [Moles/Vol] 27.4 mmol/L Normal 21.0-32.0 [facility] Comment on above: Performed By: #### B MP #### [facility] [address] [place] [address] Dr. Deepak Greenfield Creatinine [Mass/Vol] 0.65 mg/dL Critically low 0.70-1.30 [facility] Comment on above: Performed By: #### B MP #### [facility] [address] [place] [address] Dr. Deepak Greenfield EGFR-AF ANGOLAN >60 Normal >=60 [facility] Comment on above: Performed By: #### B MP #### [facility] [address] [place] [address] Dr. Deepak Greenfield EGFR-NON AF ANGOLAN >60 Normal >=60 [facility] Comment on above: Performed By: #### B MP #### [facility] [address] [place] [address] Dr. Deepak Greenfield Globulin (S) [Mass/Vol] 4.2 g/dL Normal [facility] Comment on above: Performed By: #### B MP #### [facility] [address] [address] [address] Deepak Greenfield Glucose [Mass/Vol] 105 mg/dL Normal 74-106 [facility] Comment on above: Performed By: #### B MP #### [facility] [address] [address] [address] Deepak Greenfield Potassium [Moles/Vol] 3.9 mmol/L Normal 3.5-5.1 [facility] Comment on above: Performed By: #### B MP #### [facility] [address] [address] [address] Deepak Greenfield Protein [Mass/Vol] 7.5 g/dL Normal 6.4-8.2 [facility] Comment on above: Performed By: #### B MP #### [facility] [address] [address] [address] Deepak Greenfield Sodium [Moles/Vol] 136 mmol/L Normal 136-145 [facility] Comment on above: Performed By: #### B MP #### [facility] [address] [address] [address] Deepak Greenfield Urea nitrogen [Mass/Vol] 13.0 mg/dL Normal 7.0-18.0 [facility] Comment on above: Performed By: #### B MP #### [facility] [address] [address] [address] Deepak Greenfield Urea nitrogen/Creatinine [Mass ratio] 20.0 mg/mg Normal [facility] Comment on above: Performed By: #### B MP #### [facility] [address] [address] [address] Deepak Greenfield XR CHEST 1 Von [...] GARCIA Date: 2022-07-26 12:27 Normal [facility] Consent for Treatmenton Consent for Treatment [id number] .[id number]:127 Normal [facility] Physician Orderon 07-23-2022 Physician Order [id number]# 1.00CD:127 Normal [facility] XR Adult Swallowing Function w/ Videoon 07-23-2022 [...] mGy = 11.70 DAP = 270.92 Normal [facility] AMMONIAon 06-03-2022 Ammonia (P) [Moles/Vol] 112 umol/L Critically high 11-32 [facility] Comment on above: Performed By: #### A MM #### [facility] [address] [place], [place] [id number] Dr. Deepak Greenfield DEPAKENE/ VALPROIC ACIDon DEPAKENE 94.0 ug/ml Normal 50.0-100.0 [facility] Comment on above: Performed By: #### C BC #### [facility] [address] [place] [address] Dr. Deepak Greenfield LIVER PROFILEon 06-03-2022 Albumin [Mass/Vol] 3.6 g/dL Normal 3.4-5.0 [facility] Comment on above: Performed By: #### C BC #### [facility] [address] [place] [address] Dr. Deepak Greenfield Albumin/Globulin [Mass ratio] 0.9 {ratio} Normal [facility] Comment on above: Performed By: #### C BC #### [facility] [address] [place] [address] Dr. Deepak Greenfield ALP [Catalytic activity/Vol] 55 U/L Normal 46-116 [facility] Comment on above: Performed By: #### C BC #### [facility] [address] [place] [address] Dr. Deepak Greenfield ALT [Catalytic activity/Vol] 76 U/L Critically high 16-63 [facility] Comment on above: Performed By: #### C BC #### [facility] [address] [place] [address] Dr. Deepak Greenfield AST [Catalytic activity/Vol] 51 U/L Critically high 15-37 [facility] Comment on above: Performed By: #### C BC #### [facility] [address] [place] [address] Dr. Deepak Greenfield BILI, CONJUGATED 0.1 mg/dL Normal 0.0-0.2 [facility] Comment on above: Performed By: #### C BC #### [facility] [address] [place] [address] Dr. Deepak Greenfield Bilirubin [Mass/Vol] 0.4 mg/dL Normal 0.2-1.0 [facility] Comment on above: Performed By: #### C BC #### [facility] [address] [place] [address] Dr. Deepak Greenfield Globulin (S) [Mass/Vol] 4.1 g/dL Normal [facility] Comment on above: Performed By: #### C BC #### [facility] [address] [place] [address] Dr. Deepak Greenfield Protein [Mass/Vol] 7.7 g/dL Normal 6.4-8.2 [facility] Comment on above: Performed By: #### C BC #### [facility] [address] [place] [address] Dr. Deepak Greenfield AMMONIAon 04-22-2022 Ammonia (P) [Moles/Vol] 108 umol/L Critically high [facility] Comment on above: Performed By: #### B MP #### [facility] [address] [place] [address] Dr. Deepak Greenfield CBC AUTO DIFFon 04-22-2022 BASO # 0.0 103/ul Normal 0.0-0.1 [facility] Comment on above: Performed By: #### C BC #### [facility] [address] [place] [address] Dr. Deepak Greenfield Basophils/100 WBC (Bld) 0.5 % Normal 0.2-2.0 [facility] Comment on above: Performed By: #### C BC #### [facility] [address] [place] [address] Dr. Deepak Greenfield EO # 0.1 103/ul Normal 0.0-0.7 [facility] Comment on above: Performed By: #### C BC #### [facility] [address] [place] [address] Dr. Deepak Greenfield Eosinophils/100 WBC (Bld) 1.4 % Normal 0.9-7.0 [facility] Comment on above: Performed By: #### C BC #### [facility] [address] [place] [address] Dr. Deepak Greenfield Erythrocyte distribution width (RBC) [Ratio] 14.2 % Normal 11.0-15.0 [facility] Comment on above: Performed By: #### C BC #### [facility] [address] [place] [address] Dr. Deepak Greenfield Hematocrit (Bld) [Volume fraction] 37.0 % Critically low 42.0-54.0 [facility] Comment on above: Performed By: #### C BC #### [facility] [address] [place] [address] Dr. Deepak Greenfield Hemoglobin (Bld) [Mass/Vol] 12.3 g/dL Critically low 14.0-18.0 [facility] Comment on above: Performed By: #### C BC #### [facility] [address] [place] [address] Dr. Deepak Greenfield IG # 0.00 10e3/ul Normal 0.00-0.03 [facility] Comment on above: Performed By: #### C BC #### [facility] [address] [place] [address] Dr. Deepak Greenfield IG % 0.0 % Normal 0.0-0.5 [facility] Comment on above: Performed By: #### C BC #### [facility] [address] [place] [address] Dr. Deepak Greenfield LYMPH # 3.3 103/ul Normal 1.2-3.8 [facility] Comment on above: Performed By: #### C BC #### [facility] [address] [place] [address] Dr. Deepak Greenfield Lymphocytes/100 WBC (Bld) 51.5 % Normal 20.5-60.0 [facility] Comment on above: Performed By: #### C BC #### [facility] [address] [place] [address] Dr. Deepak Greenfield MANUAL DIFF REQ NO Normal [facility] Comment on above: Performed By: #### C BC #### [facility] [address] [place] [address] Dr. Deepak Greenfield MCH (RBC) [Entitic mass] 32.2 pg Normal 25.9-34.0 [facility] Comment on above: Performed By: #### C BC #### [facility] [address] [address] [address] Deepak Greenfield MCHC (RBC) [Mass/Vol] 33.2 g/dL Normal 29.9-35.2 [facility] Comment on above: Performed By: #### C BC #### [facility] [address] [place] [address] Dr. Deepak Greenfield MCV (RBC) [Entitic vol] 96.9 fL Critically high 80.0-94.0 [facility] Comment on above: Performed By: #### C BC #### [facility] [address] [place] [address] Dr. Deepak Greenfield MONO # 0.6 103/ul Normal 0.3-0.8 [facility] Comment on above: Performed By: #### C BC #### [facility] [address] [place] [address] Dr. Deepak Greenfield Monocytes/100 WBC (Bld) 9.7 % Normal 1.7-12.0 [facility] Comment on above: Performed By: #### C BC #### [facility] [address] [place] [address] Dr. Deepak Greenfield NEUT # 2.4 103/ul Normal 1.4-6.5 [facility] Comment on above: Performed By: #### C BC #### [facility] [address] [place] [address] Dr. Deepak Greenfield Neutrophils/100 WBC (Bld) 36.9 % Critically low 43.0-75.0 [facility] Comment on above: Performed By: #### C BC #### [facility] [address] [place] [address] Dr. Deepak Greenfield Platelet mean volume (Bld) [Entitic vol] 10.2 fL Normal 9.5-13.5 [facility] Comment on above: Performed By: #### C BC #### [facility] [address] [place] [address] Dr. Deepak Greenfield PLT 248 103/ul Normal 150-450 [facility] Comment on above: Performed By: #### C BC #### [facility] [address] [place] [address] Dr. Deepak Greenfield RBC 3.82 106/ul Critically low 4.70-6.10 [facility] Comment on above: Performed By: #### C BC #### [facility] [address] [place] [address] Dr. Deepak Greenfield WBC 6.5 103/ul Normal 4.0-11.0 [facility] Comment on above: Performed By: #### C BC #### [facility] [address] [place] [address] Dr. Deepak Greenfield FERRITINon 04-22-2022 Ferritin [Mass/Vol] 152.0 ng/mL Normal 26.0-388.0 [facility] Comment on above: Performed By: #### M G, CMP #### [facility] [address] [place] [address] Dr. Deepak Greenfield IRONon 04-22-2022 Iron [Mass/Vol] 136.0 ug/dL Normal 65.0-175.0 [facility] Comment on above: Performed By: #### M G, CMP #### [facility] [address] [place] [address] Dr. Deepak Greenfield MAGNESIUMon 04-22-2022 Magnesium [Mass/Vol] 1.6 mg/dL Critically low 1.8-2.4 [facility] Comment on above: Performed By: #### I NFLUAB #### [facility] [address] [place] [address] Dr. Deepak Greenfield VITAMIN B12on 04-22-2022 Cobalamin (Vitamin B12) [Mass/Vol] 545.0 pg/mL Normal 193.0-986.0 [facility] Comment on above: Performed By: #### M G, CMP #### [facility] [address] [place] [address] Dr. Deepak Greenfield CBC AUTO DIFFon 03-19-2022 BASO # 0.0 103/ul Normal 0.0-0.1 [facility] Comment on above: Performed By: #### M G, CMP #### [facility] [address] [place] [address] Dr. Deepak Greenfield Basophils/100 WBC (Bld) 0.5 % Normal 0.2-2.0 [facility] Comment on above: Performed By: #### M G, CMP #### [facility] [address] [place] [address] Dr. Deepak Greenfield EO # 0.2 103/ul Normal 0.0-0.7 [facility] Comment on above: Performed By: #### M G, CMP #### [facility] [address] [place] [address] Dr. Deepak Greenfield Eosinophils/100 WBC (Bld) 2.0 % Normal 0.9-7.0 [facility] Comment on above: Performed By: #### M Lacy, CMP #### [facility] [address] [place] [address] Dr. Deepak Greenfield Erythrocyte distribution width (RBC) [Ratio] 13.5 % Normal 11.0-15.0 [facility] Comment on above: Performed By: #### Karishma House, CMP #### [facility] [address] [place] [address] Dr. Deepak Greenfield Hematocrit (Bld) [Volume fraction] 38.5 % Critically low 42.0-54.0 [facility] Comment on above: Performed By: #### M G, CMP #### [facility] [address] [place] [address] Dr. Deepak Greenfield Hemoglobin (Bld) [Mass/Vol] 12.6 g/dL Critically low 14.0-18.0 [facility] Comment on above: Performed By: #### Karishma House, CMP #### [facility] [address] [place] [address] Dr. Deepak Greenfield IG # 0.02 10e3/ul Normal 0.00-0.03 [facility] Comment on above: Performed By: #### M G, CMP #### [facility] [address] [place] [address] Dr. Deepak Greenfield IG % 0.2 % Normal 0.0-0.5 [facility] Comment on above: Performed By: #### M G, CMP #### [facility] [address] [address] [address] Deepak Greenfield LYMPH # 3.1 103/ul Normal 1.2-3.8 [facility] Comment on above: Performed By: #### M G, CMP #### [facility] [address] [place] [address] Dr. Deepak Greenfield Lymphocytes/100 WBC (Bld) 36.2 % Normal 20.5-60.0 [facility] Comment on above: Performed By: #### M G, CMP #### [facility] [address] [place] [address] Dr. Deepak Greenfield MANUAL DIFF REQ NO Normal [facility] Comment on above: Performed By: #### M G, CMP #### [facility] [address] [place] [address] Dr. Deepak Greenfield MCH (RBC) [Entitic mass] 32.1 pg Normal 25.9-34.0 [facility] Comment on above: Performed By: #### M G, CMP #### [facility] [address] [place] [address] Dr. Deepak Greenfield MCHC (RBC) [Mass/Vol] 32.7 g/dL Normal 29.9-35.2 [facility] Comment on above: Performed By: #### M G, CMP #### [facility] [address] [place] [address] Dr. Deepak Greenfield MCV (RBC) [Entitic vol] 98.0 fL Critically high 80.0-94.0 [facility] Comment on above: Performed By: #### M G, CMP #### [facility] [address] [place] [address] Dr. Deepak Greenfield MONO # 0.9 103/ul Critically high 0.3-0.8 [facility] Comment on above: Performed By: #### M G, CMP #### [facility] [address] [place] [address] Dr. Deepak Greenfield Monocytes/100 WBC (Bld) 10.6 % Normal 1.7-12.0 [facility] Comment on above: Performed By: #### M G, CMP #### [facility] [address] [address] [address] Deepak Greenfield NEUT # 4.3 103/ul Normal 1.4-6.5 [facility] Comment on above: Performed By: #### M G, CMP #### [facility] [address] [address] [address] Deepak Greenfield Neutrophils/100 WBC (Bld) 50.5 % Normal 43.0-75.0 [facility] Comment on above: Performed By: #### M G, CMP #### [facility] [address] [address] [address] Deepak Greenfield Platelet mean volume (Bld) [Entitic vol] 9.9 fL Normal 9.5-13.5 [facility] Comment on above: Performed By: #### Karishma G, CMP #### [facility] [address] [address] [address] Deepak Greenfield PLT 263 103/ul Normal 150-450 [facility] Comment on above: Performed By: #### Karishma G, CMP #### [facility] [address] [address] [address] Deepak Greenfield RBC 3.93 106/ul Critically low 4.70-6.10 [facility] Comment on above: Performed By: #### M G, CMP #### [facility] [address] [address] [address] Deepak Greenfield WBC 8.6 103/ul Normal 4.0-11.0 [facility] Comment on above: Performed By: #### Karishma G, CMP #### [facility] [address] [address] [address] Deepak Greenfield MAGNESIUMon 03-19-2022 Magnesium [Mass/Vol] 1.5 mg/dL Critically low 1.8-2.4 [facility] Comment on above: Performed By: #### Karishma G, CMP #### [facility] [address] [address] [address] Deepak Greenfield PROF 14(COMP METB)on 022 Albumin [Mass/Vol] 3.4 g/dL Normal 3.4-5.0 [facility] Comment on above: Performed By: #### M G, CMP #### [facility] [address] [address] [address] Deepak Greenfield Albumin/Globulin [Mass ratio] 0.9 {ratio} Normal [facility] Comment on above: Performed By: #### M G, CMP #### [facility] [address] [address] [address] Deepak Greenfield ALP [Catalytic activity/Vol] 47 U/L Normal 46-116 [facility] Comment on above: Performed By: #### M G, CMP #### [facility] [address] [address] [address] Deepak Greenfield ALT [Catalytic activity/Vol] 48 U/L Normal 16-63 [facility] Comment on above: Performed By: #### M G, CMP #### [facility] [address] [address] [address] Deepak Greenfield Anion gap [Moles/Vol] 9.5 mmol/L Normal [facility] Comment on above: Performed By: #### M G, CMP #### [facility] [address] [address] [address] Deepak Greenfield AST [Catalytic activity/Vol] 30 U/L Normal 15-37 [facility] Comment on above: Performed By: #### M G, CMP #### [facility] [address] [address] [address] Deepak Greenfield Bilirubin [Mass/Vol] 0.2 mg/dL Normal 0.2-1.0 [facility] Comment on above: Performed By: #### M G, CMP #### [facility] [address] [address] [address] Deepak Greenfield Calcium [Mass/Vol] 8.7 mg/dL Normal 8.5-10.1 [facility] Comment on above: Performed By: #### M G, CMP #### [facility] [address] [address] [address] Deepak Greenfield Chloride [Moles/Vol] 105 mmol/L Normal 98-107 [facility] Comment on above: Performed By: #### M G, CMP #### [facility] [address] [address] [address] Deepak Greenfield CO2 [Moles/Vol] 32.6 mmol/L Critically high 21.0-32.0 [facility] Comment on above: Performed By: #### M G, CMP #### [facility] [address] [address] [address] Deepak Greenfield Creatinine [Mass/Vol] 0.70 mg/dL Normal 0.70-1.30 [facility] Comment on above: Performed By: #### M G, CMP #### [facility] [address] [address] [address] Deepak Greenfield EGFR-AF ANGOLAN >60 Normal >=60 [facility] Comment on above: Performed By: #### M G, CMP #### [facility] [address] [address] [address] Deepak Greenfield EGFR-NON AF ANGOLAN >60 Normal >=60 [facility] Comment on above: Performed By: #### M G, CMP #### [facility] [address] [address] [address] Deepak Greenfield Globulin (S) [Mass/Vol] 3.8 g/dL Normal [facility] Comment on above: Performed By: #### M G, CMP #### [facility] [address] [place] [address] Dr. Deepak Greenfield Glucose [Mass/Vol] 98 mg/dL Normal 74-106 [facility] Comment on above: Performed By: #### M G, CMP #### [facility] [address] [address] [address] Deepak Greenfield Potassium [Moles/Vol] 4.1 mmol/L Normal 3.5-5.1 [facility] Comment on above: Performed By: #### M G, CMP #### [facility] [address] [address] [address] Deepak Greenfield Protein [Mass/Vol] 7.2 g/dL Normal 6.4-8.2 [facility] Comment on above: Performed By: #### M G, CMP #### [facility] [address] [address] [address] Deepak Greenfield Sodium [Moles/Vol] 143 mmol/L Normal 136-145 [facility] Comment on above: Performed By: #### M G, CMP #### [facility] [address] [place] [address] Dr. Deepak Greenfield Urea nitrogen [Mass/Vol] 10.0 mg/dL Normal 7.0-18.0 [facility] Comment on above: Performed By: #### M G, CMP #### [facility] [address] [place] [address] Dr. Deepak Greenfield Urea nitrogen/Creatinine [Mass ratio] 14.3 mg/mg Normal [facility] Comment on above: Performed By: #### M Lacy, CMP #### [facility] [address] [place] [address] Dr. Deepak Greenfield VITAMIN D 25 OHon 03-19-2022 VIT D 25-OH 67.5 ng/mL Normal [facility] Comment on above: Performed By: #### M G, CMP #### [facility] [address] [place] [address] Dr. Deepak Greenfield VIT D RANGES SEE BELOW Normal [facility] Comment on above: Result Comment: <20 ng/mL Vit D deficient 20 - <30 ng/mL Vit D insufficient 30 - 100 ng/mL Vit D sufficient >100 ng/mL Potential Toxicity Performed By: #### Karishma House, CMP #### [facility] [address] [place] [address] Dr. Deepak Greenfield AMMONIAon 03-10-2022 Ammonia (P) [Moles/Vol] 36 umol/L Critically high [facility] Comment on above: Performed By: #### C BC #### [facility] [address] [place] [address] Dr. Deepak Greenfield DEPAKENE/ VALPROIC ACIDon DEPAKENE 93.5 ug/ml Normal 50.0-100.0 [facility] Comment on above: Performed By: #### B MP #### [facility] [address] [place] [address] Dr. Deepak Greenfield BNPon 01-24-2022 Natriuretic peptide B (Bld) [Mass/Vol] 183.0 pg/mL Normal <=450.0 [facility] Comment on above: Performed By: #### M G, CMP #### [facility] [address] [place] [address] Dr. Deepak Greenfield CBC AUTO DIFFon 01-24-2022 BASO # 0.0 103/ul Normal 0.0-0.1 [facility] Comment on above: Performed By: #### C VDTBH #### [facility] [address] [place] [address] Dr. Deepak Greenfield Basophils/100 WBC (Bld) 0.3 % Normal 0.2-2.0 [facility] Comment on above: Performed By: #### C VDTBH #### [facility] [address] [place] [address] Dr. Deepak Greenfield EO # 0.1 103/ul Normal 0.0-0.7 [facility] Comment on above: Performed By: #### C VDTBH #### [facility] [address] [place] [address] Dr. Deepak Greenfield Eosinophils/100 WBC (Bld) 0.4 % Critically low 0.9-7.0 [facility] Comment on above: Performed By: #### C VDTBH #### [facility] [address] [place] [address] Dr. Deepak Greenfield Erythrocyte distribution width (RBC) [Ratio] 13.6 % Normal 11.0-15.0 [facility] Comment on above: Performed By: #### C VDTBH #### [facility] [address] [place] [address] Dr. Deepak Greenfield Hematocrit (Bld) [Volume fraction] 39.3 % Critically low 42.0-54.0 [facility] Comment on above: Performed By: #### C VDTBH #### [facility] [address] [place] [address] Dr. Deepak Greenfield Hemoglobin (Bld) [Mass/Vol] 12.6 g/dL Critically low 14.0-18.0 [facility] Comment on above: Performed By: #### C VDTBH #### [facility] [address] [place] [address] Dr. Deepak Greenfield IG # 0.04 10e3/ul Critically high 0.00-0.03 [facility] Comment on above: Performed By: #### C VDTBH #### [facility] [address] [place] [address] Dr. Deepak Greenfield IG % 0.3 % Normal 0.0-0.5 [facility] Comment on above: Performed By: #### C VDTBH #### [facility] [address] [place] [address] Dr. Deepak Greenfield LYMPH # 2.4 103/ul Normal 1.2-3.8 [facility] Comment on above: Performed By: #### C VDTBH #### [facility] [address] [place] [address] Dr. Deepak Greenfield Lymphocytes/100 WBC (Bld) 16.6 % Critically low 20.5-60.0 [facility] Comment on above: Performed By: #### C VDTBH #### [facility] [address] [place] [address] Dr. Deepak Greenfield MANUAL DIFF REQ NO Normal [facility] Comment on above: Performed By: #### C VDTBH #### [facility] [address] [place] [address] Dr. Deepak Greenfield MCH (RBC) [Entitic mass] 32.0 pg Normal 25.9-34.0 [facility] Comment on above: Performed By: #### C VDTBH #### [facility] [address] [place] [address] Dr. Deepak Greenfield MCHC (RBC) [Mass/Vol] 32.1 g/dL Normal 29.9-35.2 [facility] Comment on above: Performed By: #### C VDTBH #### [facility] [address] [place] [address] Dr. Deepak Greenfield MCV (RBC) [Entitic vol] 99.7 fL Critically high 80.0-94.0 [facility] Comment on above: Performed By: #### C VDTBH #### [facility] [address] [address] [address] Deepak Greenfield MONO # 1.4 103/ul Critically high 0.3-0.8 [facility] Comment on above: Performed By: #### C VDTBH #### [facility] [address] [place] [address] Dr. Deepak Greenfield Monocytes/100 WBC (Bld) 9.8 % Normal 1.7-12.0 [facility] Comment on above: Performed By: #### C VDTBH #### [facility] [address] [place] [address] Dr. Deepak Greenfield NEUT # 10.7 103/ul Critically high 1.4-6.5 [facility] Comment on above: Performed By: #### C VDTB #### [facility] [address] [place] [address] Dr. Deepak Greenfield Neutrophils/100 WBC (Bld) 72.6 % Normal 43.0-75.0 [facility] Comment on above: Performed By: #### C VDTBH #### [facility] [address] [place] [address] Dr. Deepak Greenfield Platelet mean volume (Bld) [Entitic vol] 10.4 fL Normal 9.5-13.5 [facility] Comment on above: Performed By: #### C VDTBH #### [facility] [address] [place] [address] Dr. Deepak Greenfield PLT 280 103/ul Normal 150-450 [facility] Comment on above: Performed By: #### C VDTBH #### [facility] [address] [place] [address] Dr. Deepak Greenfield RBC 3.94 106/ul Critically low 4.70-6.10 [facility] Comment on above: Performed By: #### C VDTBH #### [facility] [address] [place] [address] Dr. Deepak Greenfield WBC 14.7 103/ul Critically high 4.0-11.0 [facility] Comment on above: Performed By: #### C VDTBH #### [facility] [address] [place] [address] Dr. Deepak Greenfield CULTURE BLOODon 01-24-2022 Microscopic examination of blood, culture Culture Observations: No growth at 5 days. Normal [facility] Comment on above: Performed By: #### C BC #### [facility] [address] [address] [address] Deepak Greenfield Microscopic examination of blood, culture Culture Observations: No growth at 5 days. Normal [facility] Comment on above: Performed By: #### C BC #### [facility] [address] [place] [address] Dr. Deepak Greenfield Covid-19 PCR ([facility])on SARS-CoV-2 (COVID-19) RNA CINDY+probe Ql (Unsp spec) Not detected Normal NOT DETECTED [facility] Comment on above: Result Comment: [...] for this test is supported by the Lead [employer]can[employer] Operator of Health and Human Service's declaration that [...] used). Performed By: #### I NFLUAB #### [facility] [address] [place] [address] Dr. Deepak Greenfield LACTATE/LACTIC ACIDon 2021 Lactate [Moles/Vol] 1.7 mmol/L Normal 0.4-1.9 [facility] Comment on above: Performed By: #### M G, CMP #### [facility] [address] [place] [address] Dr. Deepak Greenfield PROF 14(COMP METB)on 022 Albumin [Mass/Vol] 3.2 g/dL Critically low 3.4-5.0 [facility] Comment on above: Performed By: #### M G, CMP #### [facility] [address] [place] [address] Dr. Deepak Greenfield Albumin/Globulin [Mass ratio] 0.7 {ratio} Normal [facility] Comment on above: Performed By: #### M G, CMP #### [facility] [address] [place] [address] Dr. Deepak Greenfield ALP [Catalytic activity/Vol] 49 U/L Normal 46-116 [facility] Comment on above: Performed By: #### M G, CMP #### [facility] [address] [place] [address] Dr. Deepak Greenfield ALT [Catalytic activity/Vol] 41 U/L Normal 16-63 [facility] Comment on above: Performed By: #### M G, CMP #### [facility] [address] [place] [address] Dr. Deepak Greenfield Anion gap [Moles/Vol] 11.1 mmol/L Normal [facility] Comment on above: Performed By: #### M G, CMP #### [facility] [address] [place] [address] Dr. Deepak Greenfield AST [Catalytic activity/Vol] 29 U/L Normal 15-37 [facility] Comment on above: Performed By: #### M G, CMP #### [facility] [address] [place] [address] Dr. Deepak Greenfield Bilirubin [Mass/Vol] 0.5 mg/dL Normal 0.2-1.0 [facility] Comment on above: Performed By: #### M G, CMP #### [facility] [address] [place] [address] Dr. Deepak Greenfield Calcium [Mass/Vol] 9.1 mg/dL Normal 8.5-10.1 [facility] Comment on above: Performed By: #### M G, CMP #### [facility] [address] [place] [address] Dr. Deepak Greenfield Chloride [Moles/Vol] 108 mmol/L Critically high 98-107 [facility] Comment on above: Performed By: #### M G, CMP #### [facility] [address] [place] [address] Dr. Deepak Greenfield CO2 [Moles/Vol] 25.7 mmol/L Normal 21.0-32.0 [facility] Comment on above: Performed By: #### M G, CMP #### [facility] [address] [place] [address] Dr. Deepak Greenfield Creatinine [Mass/Vol] 0.89 mg/dL Normal 0.70-1.30 [facility] Comment on above: Performed By: #### Karishma House, CMP #### [facility] [address] [place] [address] Dr. Deepak Greenfield EGFR-AF ANGOLAN >60 Normal >=60 [facility] Comment on above: Performed By: #### M G, CMP #### [facility] [address] [place] [address] Dr. Deepak Greenfield EGFR-NON AF ANGOLAN >60 Normal >=60 [facility] Comment on above: Performed By: #### Karishma House, CMP #### [facility] [address] [place] [address] Dr. Deepak Greenfield Globulin (S) [Mass/Vol] 4.5 g/dL Normal [facility] Comment on above: Performed By: #### M G, CMP #### [facility] [address] [place] [address] Dr. Deepak Greenfield Glucose [Mass/Vol] 178 mg/dL Critically high 74-106 [facility] Comment on above: Performed By: #### M G, CMP #### [facility] [address] [place] [address] Dr. Deepak Greenfield Potassium [Moles/Vol] 3.8 mmol/L Normal 3.5-5.1 [facility] Comment on above: Performed By: #### M G, CMP #### [facility] [address] [address] [address] Deepak Greenfield Protein [Mass/Vol] 7.7 g/dL Normal 6.4-8.2 [facility] Comment on above: Performed By: #### M G, CMP #### [facility] [address] [address] [address] Deepak Greenfield Sodium [Moles/Vol] 141 mmol/L Normal 136-145 [facility] Comment on above: Performed By: #### M G, CMP #### [facility] [address] [place] [address] Dr. Deepak Greenfield Urea nitrogen [Mass/Vol] 16.0 mg/dL Normal 7.0-18.0 [facility] Comment on above: Performed By: #### Karishma Lacy, CMP #### [facility] [address] [place] [address] Dr. Deepak Greenfield Urea nitrogen/Creatinine [Mass ratio] 18.0 mg/mg Normal [facility] Comment on above: Performed By: #### Karishma House, CMP #### [facility] [address] [place] [address] Dr. Deepak Greenfield TROPONIN, HIGH SENSITIVITYon 01-24-2022 HSTROP 6.4 pg/mL Normal 4.0-76.1 [facility] Comment on above: Result Comment: CUT- OFF POINTS HAVE BEEN ESTABLISHED BASED ON THE FOURTH UNIVERSAL DEFINITIONS OF MYOCARDIAL INFARCTION. THE UPPER REFERENCE LIMIT (URL) OF TROPONIN, DEFINED THE 99TH PERCENTILE OF cTnI DISTRIBUTION IN A REFERENCE POPULATION, HAS BEEN CONFIRMED THE DECISION THRESHOLD FOR NE DIAGNOSIS. Performed By: #### Karishma Huose, CMP #### [facility] [address] [place] [address] Dr. Deepak Greenfield XR CHEST 1 Von [...] ANICETO CROCKER Date: 2022-01-24 15:28 Normal [facility] UA RANDOM W/MICROSCOPICon BACTERIA NONE SEEN Normal NONE SEEN [facility] Comment on above: Performed By: #### C VDTBH #### [facility] [address] [place] [address] Dr. Deepak Greenfield Bilirubin Ql (U) Negative Normal NEGATIVE [facility] Comment on above: Performed By: #### C VDTBH #### [facility] [address] [place] [address] Dr. Deepak Greenfield CAST NONE SEEN Normal NONE SEEN [facility] Comment on above: Performed By: #### C VDTBH #### [facility] [address] [place] [address] Dr. Deepak Greenfield Clarity (U) CLEAR Normal CLEAR [facility] Comment on above: Performed By: #### C VDTBH #### [facility] [address] [place] [address] Dr. Deepak Greenfield Color (U) YELLOW Normal YELLOW [facility] Comment on above: Performed By: #### C VDTBH #### [facility] [address] [place] [address] Dr. Deepak Greenfield Crystals LM Nom (Urine sed) NONE SEEN Normal NONE SEEN [facility] Comment on above: Performed By: #### C VDTBH #### [facility] [address] [place] [address] Dr. Deepak Greenfield Epithelial cells LM Ql (Urine sed) RARE Normal NONE SEEN /RARE [facility] Comment on above: Performed By: #### C VDTBH #### [facility] [address] [place] [address] Dr. Deepak Greenfield Glucose Ql (U) Negative Normal NEGATIVE [facility] Comment on above: Performed By: #### C VDTBH #### [facility] [address] [place] [address] Dr. Deepak Greenfield Hemoglobin Ql (U) Negative Normal NEGATIVE The [facility] Comment on above: Performed By: #### C VDTBH #### [facility] [address] [place] [address] Dr. Deepak Greenfield Ketones Ql (U) 15 mg/dl Abnormal NEGATIVE [facility] Comment on above: Performed By: #### C VDTBH #### [facility] [address] [place] [address] Dr. Deepak Greenfield LEUKOCYTES Negative Normal NEGATIVE [facility] Comment on above: Performed By: #### C VDTBH #### [facility] [address] [place] [address] Dr. Deepak Greenfield MUCOUS NONE SEEN Normal NONE SEEN [facility] Comment on above: Performed By: #### C VDTBH #### [facility] [address] [place] [address] Dr. Deepak Greenfield Nitrite Ql (U) Negative Normal NEGATIVE [facility] Comment on above: Performed By: #### C VDTBH #### [facility] [address] [place] [address] Dr. Deepak Greenfield pH (U) 6.0 [pH] Normal 5-9 [facility] Comment on above: Performed By: #### C VDTBH #### [facility] [address] [place] [address] Dr. Deepak Greenfield RBC 0-2 Normal 0-2 [facility] Comment on above: Performed By: #### C VDTBH #### [facility] [address] [place] [address] Dr. Deepak Greenfield SPEC GRAVITY 1.020 Normal 1.005-<=1.025 [facility] Comment on above: Performed By: #### C VDTBH #### [facility] [address] [place] [address] Dr. Deepak Greenfield UA PROTEIN Negative Normal NEGATIVE/ TRACE [facility] Comment on above: Performed By: #### C VDTBH #### [facility] [address] [place] [address] Dr. Deepak Greenfield Urobilinogen Qn (U) 0.2 {Ottoniel'U}/dL Normal 0.2 - 1. 0 [facility] Comment on above: Performed By: #### C VDTBH #### [facility] [address] [place] [address] Dr. Deepak Greenfield WBC NONE SEEN Normal NONE SEEN [facility] Comment on above: Performed By: #### C VDTBH #### [facility] [address] [place] [address] Dr. Deepak Greenfield ALBUMINon 01-12-2022 Albumin [Mass/Vol] 3.4 g/dL Normal 3.4-5.0 [facility] Comment on above: Performed By: #### C VDTBH #### [facility] [address] [place] [address] Dr. Deepak Greenfield ALKALINE PHOSPHAon ALP [Catalytic activity/Vol] 46 U/L Normal 46-116 [facility] Comment on above: Performed By: #### C VDTBH #### [facility] [address] [place] [address] Dr. Deepak Greenfield AMMONIAon 01-12-2022 Ammonia (P) [Moles/Vol] 93 umol/L Critically high 11-32 [facility] Comment on above: Performed By: #### I NFLUAB #### [facility] [address] [place] [address] Dr. Deepak Greenfield BILIRUBIN CONJUGATED (DIRECT )on 01-12-2022 BILI, CONJUGATED 0.1 mg/dL Normal 0.0-0.2 [facility] Comment on above: Performed By: #### C VDTBH #### [facility] [address] [place] [address] Dr. Deepak Greenfield BILIRUBIN TOTALon 01-12-2022 Bilirubin [Mass/Vol] 0.4 mg/dL Normal 0.2-1.0 [facility] Comment on above: Performed By: #### C VDTBH #### [facility] [address] [place] [address] Dr. Deepak Greenfield CBC AUTO DIFFon 01-12-2022 BASO # 0.0 103/ul Normal 0.0-0.1 [facility] Comment on above: Performed By: #### M G, CMP #### [facility] [address] [place] [address] Dr. Deepak Greenfield Basophils/100 WBC (Bld) 0.3 % Normal 0.2-2.0 [facility] Comment on above: Performed By: #### M G, CMP #### [facility] [address] [place] [address] Dr. Deepak Greenfield EO # 0.1 103/ul Normal 0.0-0.7 [facility] Comment on above: Performed By: #### M G, CMP #### [facility] [address] [place] [address] Dr. Deepak Greenfield Eosinophils/100 WBC (Bld) 1.3 % Normal 0.9-7.0 [facility] Comment on above: Performed By: #### M G, CMP #### [facility] [address] [place] [address] Dr. Deepak Greenfield Erythrocyte distribution width (RBC) [Ratio] 14.2 % Normal 11.0-15.0 [facility] Comment on above: Performed By: #### M G, CMP #### [facility] [address] [place] [address] Dr. Deepak Greenfield Hematocrit (Bld) [Volume fraction] 40.4 % Critically low 42.0-54.0 [facility] Comment on above: Performed By: #### M G, CMP #### [facility] [address] [place] [address] Dr. Deepak Greenfield Hemoglobin (Bld) [Mass/Vol] 13.1 g/dL Critically low 14.0-18.0 [facility] Comment on above: Performed By: #### M G, CMP #### [facility] [address] [place] [address] Dr. Deepak Greenfield IG # 0.01 10e3/ul Normal 0.00-0.03 [facility] Comment on above: Performed By: #### M G, CMP #### [facility] [address] [place] [address] Dr. Deepak Greenfield IG % 0.1 % Normal 0.0-0.5 [facility] Comment on above: Performed By: #### M G, CMP #### [facility] [address] [place] [address] Dr. Deepak Greenfield LYMPH # 3.3 103/ul Normal 1.2-3.8 [facility] Comment on above: Performed By: #### M G, CMP #### [facility] [address] [place] [address] Dr. Deepak Greenfield Lymphocytes/100 WBC (Bld) 42.3 % Normal 20.5-60.0 [facility] Comment on above: Performed By: #### M G, CMP #### [facility] [address] [place] [address] Dr. Deepak Greenfield MANUAL DIFF REQ NO Normal [facility] Comment on above: Performed By: #### M G, CMP #### [facility] [address] [place] [address] Dr. Deepak Greenfield MCH (RBC) [Entitic mass] 32.4 pg Normal 25.9-34.0 [facility] Comment on above: Performed By: #### M G, CMP #### [facility] [address] [place] [address] Dr. Deepak Greenfield MCHC (RBC) [Mass/Vol] 32.4 g/dL Normal 29.9-35.2 [facility] Comment on above: Performed By: #### M G, CMP #### [facility] [address] [place] [address] Dr. Deepak Greenfield MCV (RBC) [Entitic vol] 100.0 fL Critically high 80.0-94.0 [facility] Comment on above: Performed By: #### M G, CMP #### [facility] [address] [place] [address] Dr. Deepak Greenfield MONO # 0.6 103/ul Normal 0.3-0.8 [facility] Comment on above: Performed By: #### M G, CMP #### [facility] [address] [place] [address] Dr. Deepak Greenfield Monocytes/100 WBC (Bld) 7.6 % Normal 1.7-12.0 [facility] Comment on above: Performed By: #### M G, CMP #### [facility] [address] [place] [address] Dr. Deepak Greenfield NEUT # 3.8 103/ul Normal 1.4-6.5 [facility] Comment on above: Performed By: #### M G, CMP #### [facility] [address] [place] [address] Dr. Deepak Greenfield Neutrophils/100 WBC (Bld) 48.4 % Normal 43.0-75.0 [facility] Comment on above: Performed By: #### Karishma G, CMP #### [facility] [address] [place] [address] Dr. Deepak Greenfield Platelet mean volume (Bld) [Entitic vol] 9.6 fL Normal 9.5-13.5 [facility] Comment on above: Performed By: #### Karishma G, CMP #### [facility] [address] [place] [address] Dr. Deepak Greenfield PLT 315 103/ul Normal 150-450 [facility] Comment on above: Performed By: #### Karishma G, CMP #### [facility] [address] [place] [address] Dr. Deepak Greenfield RBC 4.04 106/ul Critically low 4.70-6.10 [facility] Comment on above: Performed By: #### Karishma G, CMP #### [facility] [address] [place] [address] Dr. Deepak Greenfield WBC 7.9 103/ul Normal 4.0-11.0 [facility] Comment on above: Performed By: #### M G, CMP #### [facility] [address] [place] [address] Dr. Deepak Greenfield DEPAKENE/VALPROICon 01-13-20 22 DEPAKENE 89.7 ug/ml Normal 50.0-100.0 [facility] Comment on above: Performed By: #### I NFLUAB #### [facility] [address] [place] [address] Dr. Deepak Greenfield PROF CHEM 8 (BAS METB)on Anion gap [Moles/Vol] 12.9 mmol/L Normal [facility] Comment on above: Performed By: #### I NFLUAB #### [facility] [address] [address] [address] Deepak Greenfield Calcium [Mass/Vol] 8.8 mg/dL Normal 8.5-10.1 [facility] Comment on above: Performed By: #### I NFLUAB #### [facility] [address] [address] [address] Deepak Greenfield Chloride [Moles/Vol] 103 mmol/L Normal 98-107 [facility] Comment on above: Performed By: #### I NFLUAB #### [facility] [address] [place] [address] Dr. Deepak Greenfield CO2 [Moles/Vol] 28.1 mmol/L Normal 21.0-32.0 [facility] Comment on above: Performed By: #### I NFLUAB #### [facility] [address] [address] [address] Deepak Greenfield Creatinine [Mass/Vol] 0.58 mg/dL Critically low 0.70-1.30 [facility] Comment on above: Performed By: #### I NFLUAB #### [facility] [address] [place] [address] Dr. Deepak Greenfield EGFR-AF ANGOLAN >60 Normal >=60 [facility] Comment on above: Performed By: #### I NFLUAB #### [facility] [address] [place] [address] Dr. Deepak Greenfield EGFR-NON AF ANGOLAN >60 Normal >=60 [facility] Comment on above: Performed By: #### I NFLUAB #### [facility] [address] [address] [address] Deepak Greenfield Glucose [Mass/Vol] 117 mg/dL Critically high 74-106 [facility] Comment on above: Performed By: #### I NFLUAB #### [facility] [address] [address] [address] Deepak Greenfield Potassium [Moles/Vol] 4.0 mmol/L Normal 3.5-5.1 [facility] Comment on above: Performed By: #### I NFLUAB #### [facility] [address] [place] [address] Dr. Deepak Greenfield Sodium [Moles/Vol] 140 mmol/L Normal 136-145 [facility] Comment on above: Performed By: #### I NFLUAB #### [facility] [address] [place] [address] Dr. Deepak Greenfield Urea nitrogen [Mass/Vol] 7.0 mg/dL Normal 7.0-18.0 [facility] Comment on above: Performed By: #### I NFLUAB #### [facility] [address] [place] [address] Dr. Deepak Greenfield Urea nitrogen/Creatinine [Mass ratio] 12.1 mg/mg Normal [facility] Comment on above: Performed By: #### I NFLUAB #### [facility] [address] [place] [address] Dr. Deepak Greenfield SGOTon 01-12-2022 AST [Catalytic activity/Vol] 31 U/L Normal 15-37 [facility] Comment on above: Performed By: #### C VDTBH #### [facility] [address] [place] [address] Dr. Deepak Greenfield SGPTon 01-12-2022 ALT [Catalytic activity/Vol] 48 U/L Normal 16-63 [facility] Comment on above: Performed By: #### C VDTBH #### [facility] [address] [place] [address] Dr. Deepak Greenfield T PROTEIN SERUMon 01-12-2022 Protein [Mass/Vol] 7.3 g/dL Normal 6.4-8.2 [facility] Comment on above: Performed By: #### B MP #### [facility] [address] [place] [address] Dr. Deepak Greenfield XR CHEST 2 Von [...] CROCKER Date: 2022-01-06 16:15 Normal [facility] XR DEXA BONE DENSITYon 11-20 XR DEXA [...] MARGARITO DAVIES Date: 2021-11-20 11:42 Normal [facility] US SCROTUMon 11-14-2021 US SCROTUM [...] KRISTIAN BILLINGS Date: 2021-11-14 07:10 Normal [facility] AMMONIAon 10-31-2021 Ammonia (P) [Moles/Vol] 88 umol/L Critically high 11-32 [facility] Comment on above: Performed By: #### M G, CMP #### [facility] [address] [place] [address] Dr. Deepak Greenfield AMMONIAon 10-30-2021 Ammonia (P) [Moles/Vol] 103 umol/L Critically high [facility] Comment on above: Result Comment: SPEC IMEN SLIGHTLY HEMOLYZED MAY AFFECT AMM RESULT Performed By: #### I NFLUAB #### [facility] [address] [place] [address] Dr. Deepak Greenfield WOUND CULTUREon 10-23-2021 Bacteria identified Aer cx Nom (Unsp spec) Final report Normal [facility] Comment on above: Performed By: #### C XWND #### [facility] [address] [place] [address] Dr. Deepak Greenfield Result 1 Comment Normal [facility] Comment on above: Result Comment: No g rowth in 36 - 48 hours. Performed By: #### C XWND #### [facility] [address] [place] [address] Dr. Deepak Greenfield WOUND CULTUREon 10-02-2021 Bacteria identified Aer cx Nom (Unsp spec) Final report Normal [facility] Comment on above: Performed By: #### A MM #### [facility] [address] [place] [address] Dr. Deepak Greenfield Result 1 Mixed skin omid Normal [facility] Comment on above: Performed By: #### A MM #### [facility] [address] [place] [address] Dr. Deepak Greenfield AMYLASEon 09-22-2021 Amylase [Catalytic activity/Vol] 24 U/L Critically low 25-115 [facility] Comment on above: Performed By: #### C BC #### [facility] [address] [place] [address] Dr. Deepak Greenfield CBC AUTO DIFFon 09-22-2021 BASO # 0.0 103/ul Normal 0.0-0.1 [facility] Comment on above: Performed By: #### C VDTBH #### [facility] [address] [place] [address] Dr. Deepak Greenfield Basophils/100 WBC (Bld) 0.5 % Normal 0.2-2.0 [facility] Comment on above: Performed By: #### C VDTBH #### [facility] [address] [place] [address] Dr. Deepak Greenfield EO # 0.1 103/ul Normal 0.0-0.7 [facility] Comment on above: Performed By: #### C VDTBH #### [facility] [address] [place] [address] Dr. Deepak Greenfield Eosinophils/100 WBC (Bld) 1.3 % Normal 0.9-7.0 [facility] Comment on above: Performed By: #### C VDTBH #### [facility] [address] [place] [address] Dr. Deepak Greenfield Erythrocyte distribution width (RBC) [Ratio] 13.9 % Normal 11.0-15.0 [facility] Comment on above: Performed By: #### C VDTBH #### [facility] [address] [place] [address] Dr. Deepak Greenfield Hematocrit (Bld) [Volume fraction] 40.0 % Critically low 42.0-54.0 [facility] Comment on above: Performed By: #### C VDTBH #### [facility] [address] [place] [address] Dr. Deepak Greenfield Hemoglobin (Bld) [Mass/Vol] 13.0 g/dL Critically low 14.0-18.0 [facility] Comment on above: Performed By: #### C VDTBH #### [facility] [address] [address] [address] Deepak Greenfield IG # 0.01 10e3/ul Normal 0.00-0.03 [facility] Comment on above: Performed By: #### C VDTBH #### [facility] [address] [address] [address] Deepak Greenfield IG % 0.2 % Normal 0.0-0.5 [facility] Comment on above: Performed By: #### C VDTBH #### [facility] [address] [address] [address] Deepak Greenfield LYMPH # 3.0 103/ul Normal 1.2-3.8 [facility] Comment on above: Performed By: #### C VDTBH #### [facility] [address] [place] [address] Dr. Deepak Greenfield Lymphocytes/100 WBC (Bld) 47.9 % Normal 20.5-60.0 [facility] Comment on above: Performed By: #### C VDTBH #### [facility] [address] [address] [address] Deepak Greenfield MANUAL DIFF REQ NO Normal [facility] Comment on above: Performed By: #### C VDTBH #### [facility] [address] [place] [address] Dr. Deepak Greenfield MCH (RBC) [Entitic mass] 32.9 pg Normal 25.9-34.0 [facility] Comment on above: Performed By: #### C VDTBH #### [facility] [address] [address] [address] Deepak Greenfield MCHC (RBC) [Mass/Vol] 32.5 g/dL Normal 29.9-35.2 [facility] Comment on above: Performed By: #### C VDTBH #### [facility] [address] [address] [address] Deepak Greenfield MCV (RBC) [Entitic vol] 101.3 fL Critically high 80.0-94.0 [facility] Comment on above: Performed By: #### C VDTBH #### [facility] [address] [address] [address] Deepak Greenfield MONO # 0.7 103/ul Normal 0.3-0.8 [facility] Comment on above: Performed By: #### C VDTBH #### [facility] [address] [address] [address] Deepak Greenfield Monocytes/100 WBC (Bld) 10.3 % Normal 1.7-12.0 [facility] Comment on above: Performed By: #### C VDTBH #### [facility] [address] [address] [address] Deepak Greenfield NEUT # 2.5 103/ul Normal 1.4-6.5 [facility] Comment on above: Performed By: #### C VDTBH #### [facility] [address] [place] [address] Dr. Deepak Greenfield Neutrophils/100 WBC (Bld) 39.8 % Critically low 43.0-75.0 [facility] Comment on above: Performed By: #### C VDTBH #### [facility] [address] [place] [address] Dr. Deepak Greenfield Platelet mean volume (Bld) [Entitic vol] 10.1 fL Normal 9.5-13.5 [facility] Comment on above: Performed By: #### C VDTBH #### [facility] [address] [place] [address] Dr. Deepak Greenfield PLT 311 103/ul Normal 150-450 [facility] Comment on above: Performed By: #### C VDTBH #### [facility] [address] [place] [address] Dr. Deepak Greenfield RBC 3.95 106/ul Critically low 4.70-6.10 [facility] Comment on above: Performed By: #### C VDTBH #### [facility] [address] [place] [address] Dr. Deepak Greenfield WBC 6.3 103/ul Normal 4.0-11.0 [facility] Comment on above: Performed By: #### C VDTB #### [facility] [address] [address] [address] ABD/PELV W CONon [...] JAMIE ALICIA Date: 2021-09-22 02:34 Normal [facility] CT HEAD WO CONon 09-22-2021 [...] BRITTON FONTENOT Date: 2021-09-22 01:13 Normal [facility] LIPASEon 09-22-2021 Lipase [Catalytic activity/Vol] 28.0 U/L Critically low 73.0-393.0 [facility] Comment on above: Performed By: #### C BC #### [facility] [address] [place] [address] Dr. Deepak Greenfield PROF 14(COMP METB)on 022 Albumin [Mass/Vol] 3.3 g/dL Critically low 3.4-5.0 [facility] Comment on above: Performed By: #### B MP #### [facility] [address] [place] [address] Dr. Deepak Greenfield Albumin/Globulin [Mass ratio] 0.9 {ratio} Normal [facility] Comment on above: Performed By: #### B MP #### [facility] [address] [place] [address] Dr. Deepak Greenfield ALP [Catalytic activity/Vol] 38 U/L Critically low 46-116 [facility] Comment on above: Performed By: #### B MP #### [facility] [address] [place] [address] Dr. Deepak Greenfield ALT [Catalytic activity/Vol] 91 U/L Critically high 16-63 [facility] Comment on above: Performed By: #### B MP #### [facility] [address] [place] [address] Dr. Deepak Greenfield Anion gap [Moles/Vol] 10.2 mmol/L Normal [facility] Comment on above: Performed By: #### B MP #### [facility] [address] [address] [address] Deepak Greenfield AST [Catalytic activity/Vol] 50 U/L Critically high 15-37 [facility] Comment on above: Performed By: #### B MP #### [facility] [address] [address] [address] Deepak Greenfield Bilirubin [Mass/Vol] 0.3 mg/dL Normal 0.2-1.0 [facility] Comment on above: Performed By: #### B MP #### [facility] [address] [place] [address] Dr. Deepak Greenfield Calcium [Mass/Vol] 8.6 mg/dL Normal 8.5-10.1 [facility] Comment on above: Performed By: #### B MP #### [facility] [address] [address] [address] Deepak Greenfield Chloride [Moles/Vol] 106 mmol/L Normal 98-107 [facility] Comment on above: Performed By: #### B MP #### [facility] [address] [address] [address] Deepak Greenfield CO2 [Moles/Vol] 29.9 mmol/L Normal 21.0-32.0 [facility] Comment on above: Performed By: #### B MP #### [facility] [address] [address] [address] Deepak Greenfield Creatinine [Mass/Vol] 0.65 mg/dL Critically low 0.70-1.30 [facility] Comment on above: Performed By: #### B MP #### [facility] [address] [address] [address] Deepak Greenfield EGFR-AF ANGOLAN >60 Normal >=60 [facility] Comment on above: Performed By: #### B MP #### [facility] [address] [address] [address] Deepak Greenfield EGFR-NON AF ANGOLAN >60 Normal >=60 [facility] Comment on above: Performed By: #### B MP #### [facility] [address] [address] [address] Deepak Greenfield Globulin (S) [Mass/Vol] 3.7 g/dL Normal [facility] Comment on above: Performed By: #### B MP #### [facility] [address] [address] [address] Deepak Greenfield Glucose [Mass/Vol] 105 mg/dL Normal 74-106 [facility] Comment on above: Performed By: #### B MP #### [facility] [address] [address] [address] Deepak Greenfield Potassium [Moles/Vol] 4.1 mmol/L Normal 3.5-5.1 [facility] Comment on above: Performed By: #### B MP #### [facility] [facility] [address] [address] [address] Deepak Greenfield Protein [Mass/Vol] 7.0 g/dL Normal 6.4-8.2 [facility] Comment on above: Performed By: #### B MP #### [facility] [address] [address] [address] Deepak Greenfield Sodium [Moles/Vol] 142 mmol/L Normal 136-145 [facility] Comment on above: Performed By: #### B MP #### [facility] [address] [address] [address] Deepak Greenfield Urea nitrogen [Mass/Vol] 13.0 mg/dL Normal 7.0-18.0 [facility] Comment on above: Performed By: #### B MP #### [facility] [address] [address] [address] Deepak Greenfield Urea nitrogen/Creatinine [Mass ratio] 20.0 mg/mg Normal [facility] Comment on above: Performed By: #### B MP #### [facility] [address] [address] [address] Deepak Greenfield Vital Signs Date Time Vital Sign Value Performing Clinician Facility 03-07-2024 11:34-0500 Diastolic blood pressure 88 mm[Hg] Rodriguez Vang DO Work Phone: [facility] 03-07-2024 11:34-0500 Heart rate 68 /min Rodriguez Rashel DO Work Phone: [facility] 03-07-2024 11:34-0500 SaO2% (BldA) [Mass fraction] 98 % Rodriguez Rashel DO Work Phone: [facility] 03-07-2024 11:34-0500 Systolic blood pressure 128 mm[Hg] Rodriguez Rashel DO Work Phone: [facility] 12-16-2022 10:18-0400 Blood Pressure Location Arline Lue [facility] 12-16-2022 10:18-0400 Body temperature 98.06 [degF] Arline Lue [facility] 12-16-2022 10:18-0400 Diastolic blood pressure 78 mm[Hg] Arline Lue [facility] 12-16-2022 10:18-0400 Heart rate 84 /min Arline Lue [facility] 12-16-2022 10:18-0400 Systolic blood pressure 128 mm[Hg] Arline Lue [facility] 12-23-2021 11:30-0400 Body height 157.48 cm Antionette Leonel Other [employer] [facility] [employer] Other 12-23-2021 11:30-0400 Body mass index (BMI) [Ratio] 25.79 kg/m2 Antionette Leonel Other [employer] [facility] [employer] Other 12-23-2021 11:30-0400 Body temperature 98.5 [degF] Antionette Leonel Other [employer] Other 12-23-2021 11:30-0400 Body weight 63.96 kg Antionette Leonel Other [employer] Other 12-23-2021 11:30-0400 Diastolic blood pressure 70 mm[Hg] Antionette Leonel Other [employer] Other 12-23-2021 11:30-0400 Respiratory rate 20 /min Antionette Leonel Other [employer] Other 12-23-2021 11:30-0400 SaO2% (BldA) [Mass fraction] 99 % Antionette Leonel Other [employer] Other 12-23-2021 11:30-0400 Systolic blood pressure 120 mm[Hg] Antionette Leonel Other [employer] Other 10-22-2021 10:29-0400 Blood Pressure Location Arline Lue [facility] [employer] 10-22-2021 10:29-0400 Diastolic blood pressure 92 mm[Hg] Arline Lue [facility] 10-22-2021 10:29-0400 Heart rate 100 /min Arline Lue [facility] 10-22-2021 10:29-0400 Respiratory rate 16 /min Arline Lue [facility] 10-22-2021 10:29-0400 Systolic blood pressure 137 mm[Hg] Arline Levine [facility] Nataliya Encounters Encounter Date Encounter Type Care Provider Facility Start: 03-28-2024 End: 03-28-2024 Admission to same day surgery center Jared Yoris Giovany DDS Work Phone: [facility] Start: 03-07-2024 End: 03-07-2024 Bamboo flowsheet Rodriguez Rashel DO Work Phone: [facility] Start: 03-07-2024 End: 03-07-2024 Bamboo flowsheet Rodriguez Rashel DO Work Phone: [facility] Start: 03-07-2024 End: 03-07-2024 Office outpatient visit 25 minutes Rodriguez Vang DO Work Phone: [facility] Comment on above: Generalized convulsi ve epilepsy (CMS/HCC) (Primary Dx); 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); Spastic hemiplegia affecting dominant side (CMS/HCC); Spastic hemiplegia, nondominant side (HCC) (CMS/HCC); Severe intellectual disabilities (CMS/HCC) Start: 03-07-2024 End: 03-07-2024 ambulatory RODRIGUEZ VANG Not Available Start: 01-11-2024 End: 01-11-2024 ambulatory [facility] Work Phone: Start: 01-11-2024 End: 01-11-2024 Patient encounter procedure [facility] Work Phone: Start: 11-07-2023 End: 11-07-2023 Letter encounter Abundio Mares DDS Work Phone: [facility] Start: 08-25-2023 End: 08-25-2023 ambulatory RODRIGUEZ VANG Not Available Start: 07-06-2023 End: 07-06-2023 ambulatory [facility] Work Phone: Start: 07-06-2023 End: 07-06-2023 Patient encounter procedure [facility] Work Phone: Start: 01-05-2023 End: 01-05-2023 ambulatory Antionette Leonel Other [employer] Other Start: 01-05-2023 Office outpatient vi sit 25 minutes Antionette Leonel [facility] Start: 12-16-2022 End: 12-17-2022 ambulatory Arline Levine Facility:[facility] Start: 12-16-2022 End: 12-16-2022 Patient encounter procedure Arline Levine [facility] Start: 08-04-2022 End: 08-04-[address] FAM VENTURA Facility: Start: 07-29-2022 End: 08-02-2022 Evaluation and management of inpatient DR FAM VENTURA Facility: Start: 07-26-2022 End: 07-27-[address] FAM VENTURA Facility: Start: 07-23-2022 End: 07-24-2022 ambulatory FAM VENTURA Facility:[facility] Start: 07-23-2022 End: 07-23-2022 Patient encounter procedure FAM VENTURA [facility] Start: 06-23-2022 End: 06-23-2022 ambulatory Antionette Leonel Other [employer] Other Start: 06-23-2022 Office outpatient vi sit 25 minutes Antionette Leonel [facility] Start: 06-03-2022 End: 06-04-[address] FAM VENTURA Facility: Start: 05-08-2022 Letter encounter Abundio Mares DDS Work Phone: [facility] Start: 04-22-2022 End: 04-23-[address] [...] 12-23-2021 End: 12-23-2021 ambulatory Antionette Leonel Other [employer] Other Start: 12-23-2021 Office outpatient vi sit 25 minutes Antionette Leonel [facility] Start: 12-16-2021 End: 12-17-2021 Patient encounter procedure Mora Powell [facility] Work Phone: [facility] Start: 12-10-2021 End: 12-10-2021 Patient encounter procedure Arline Levine [facility] Start: 11-20-2021 End: 11-21-[address] FAM VENTURA Facility:[facility] Start: 11-13-2021 End: 11-14-2021 ambulatory ARLINE LEVINE . Facility:[facility] Start: 10-31-2021 End: 11-01-[address] FAM VENTURA Facility:[facility] Start: 10-22-2021 End: 10-22-2021 Patient encounter procedure Arline Levine [facility] Start: 10-21-2021 End: 10-21-[address] FAM VENTURA Facility:[facility] Start: 09-29-2021 End: 09-29-[address] FAM VENTURA Facility:[facility] Start: 09-22-2021 End: 09-22-2021 ambulatory ABBI DANIEL Facility:[facility] Procedures Date Procedure Procedure Detail Performing Clinician Start: 03-13-2024 Elec julisa implt npgt phys/qhp w/o programming Rodriguez Vang DO Work Phone: Plan of Treatment Date Care Activity Detail Author Start: 02-01-2030 Shingles (RZV) Vacci ne (1 of 2) Shingles (RZV) Vaccine (1 of 2) [facility] Start: 06-12-2024 Subsequent hospital visit by physician 06/12/2024 Hospital Encounter [facility] [address] [id number] Ap Scott, CHRISS [address] [place] [address] [facility] Start: 06-02-2024 End: 06-02-2024 Patient encounter procedure 06/02/2024 1:30 PM EST Office Visit [facility] [address] [place] [address] Jose Maria Johnson MD [address] [place] [address] [facility] Start: 05-31-2024 End: 05-31-2024 Patient encounter procedure 05/31/2024 1:00 PM EST Office Visit [facility] [address] [facility] [address] [place] [id number] Rodriguez Vang DO [address] [place] [address] [facility] Start: 03-07-2024 End: 03-07-2024 Patient encounter procedure 03/07/2024 11:30 AM EST Office Visit [facility] [address] [facility] [address] [place] [id number] Rodriguez Vang, [address] [place] [address] Arrived [facility] Comment on above: Arrived Start: 01-18-2024 Influenza vaccination Influenza Vacc ine (#1) [facility] Start: 12-19-2023 COVID-19 Vaccine ( season) COVID-19 Vaccine ( season) [facility] Start: 12-19-2023 Influenza vaccination Influenza Vacc ine (#1) [facility] Start: 12-18-2022 COVID-19 Vaccine ( season) COVID-19 Vaccine ( season) [facility] Start: 01-17-2022 Influenza vaccination Influenza Vacc ine (#1) [facility] Start: 02-01-2015 [facility]id [facility] Start: 05-20-2012 Annual wellness visit Annual [facility] Visit ([id number]) [facility] Start: 02-01-2007 HPV Vaccine (optiona l start 27-45 years) HPV Vaccine (optional start 27-45 years) [facility] Start: 02-01-1999 Hepatitis A (HAV) Vaccine (optional start 19+ years) Hepatitis A (HAV) Vaccine (optional start 19+ years) [facility] Start: 02-01-1999 Hepatitis B vaccination Hepatitis B (HBV) Vaccine (1 of 3 - 19+ 3-dose series) [facility] Start: 02-01-1998 Hepatitis C screening Hepatitis C An tibody [facility] Start: 02-01-1998 Tetanus + diphtheria + acellular pertussis vaccine (product) Tdap Booster [facility] Start: 02-01-1995 HIV screening HIV Test [facility] Start: 1980 COVID-19 Vaccine (#1) COVID-19 Vacci ne (#1) [facility] Start: 1980 Medicare Annual Wellness (AWV) Medicare Annual Wellness (AWV) [facility] DENTAL RESTORATIONS DENTAL ANI RATIONS Routine scheduled Caries [facility] Immunizations Immunization Date Immunization Notes Care Provider Fa cility 03-04-2020 pneumococcal conjuga te vaccine, 13 valent Mora Urmetz RDH Work Phone: [facility] 01-26-2018 influenza, injectabl e, quadrivalent, preservative free Mora Urmetz RDH Work Phone: [facility] 01-26-2018 influenza virus vaccine, unspecified formulation Mora Urmetz RDH Work Phone: [facility] 02-10-2017 influenza virus vaccine, unspecified formulation Arline Lue [facility] 02-10-2017 influenza, injectabl e, quadrivalent, contains preservative Mora Urmetz RDH Work Phone: [facility] 02-07-2015 influenza virus vaccine, unspecified formulation Arline Lue [facility] 02-07-2015 influenza, injectabl e, quadrivalent, preservative free Mora Urmetz RDH Work Phone: [facility] 10-23-2014 pneumococcal polysaccharide vaccine, 23 valent Mora Urmetz RDH Work Phone: [facility] 12-31-2010 influenza virus vaccine, unspecified formulation Arline Lue [facility] 12-31-2010 influenza, seasonal, injectable Mora Urmetz RDH Work Phone: [facility] 03-06-2009 novel [id number], preservative-free, injectable Mora Urmetz RDH Work Phone: [facility] 02-09-2008 influenza virus vaccine, whole virus Mora Urmetz RDH Work Phone: [facility] 02-09-2008 influenza, whole Arline Lue [facility] NEGATED: Highlighted row has not occurred!12-10-2021 SARS-CoV-2 mRNA (tozinameran 5y-11y) vaccine Arline Levine [facility] Payers Date Payer Category Payer Medicaid [id number] 2011 Medicare [id number] 2011 Medicare FFS MEDICARE Member Subscriber Plan / Payer (Effective 2011-Present) Name: Parish Lopez Member ID: [id number] Relation to Subscriber: Self Name: Parish Lopez Subscriber ID: [id number] Payer ID: Not on file Group ID: Not on file Type: Medicare Address: [address] [address] [id number] 1980 Unknown [id number] [id number]3 1980 Unknown [id number] 2.16.840.1.668751.3.579.2.593 1980 Unknown [id number] 2.16840.1.963212.3.579.2.593 1980 Unknown [id number] 2.16.840.1.201301.3.579.2.593 1980 Unknown [id number] 2.16.840.1.734303.3.579.2.727 1980 Unknown [id number] 2.16.840.1.388816.3.579.2.727 1980 Unknown [id number] 2.16.840.1.814509.3.579.2.1259 1980 Unknown [id number] 2.16.840.1.765543.3.579.2.1259 1959 Medicaid [id number] 2.16.840.1.254194.19 1959 Medicare [id number] 2.16.840.1.302345.19 1953 Unknown [id number] 2.16.840.1.135585.3.579.2.593 1953 Unknown [id number] 2.16.840.1.696371.3.579.2.593 1953 Unknown [id number] 2.16.840.1.806050.3.579.2.593 1953 Unknown [id number] 2.16.840.1.446312.3.579.2.593 1953 Unknown [id number] 2.16.840.1.556990.3.579.2.593 1953 Unknown [id number] 2.16.840.1.807434.3.579.2.593 1953 Unknown [id number] 2.16.840.1.596045.3.579.2.593 1953 Unknown [id number] 2.16.840.1.917056.3.579.2.593 1953 Unknown [id number] 2.16.840.1.689711.3.579.2.593 1953 Unknown [id number] 2.16.840.1.196638.3.579.2.593 1953 Unknown [id number] 2.16.840.1.313038.3.579.2.593 1953 Unknown [id number] 2.16.840.1.051623.3.579.2.593 1953 Unknown [id number] 2.16.840.1.251960.3.579.2.593 1953 Unknown [id number] 2.16.840.1.963007.3.579.2.593 Self-pay Self Pay [id number] Social History Date Type Detail Facility Tobacco smoking status No Smokin g Status Entered [facility] Start: 11-02-2022 End: 03-07-2024 Sex Assigned At Male [facility] Start: 03-28-2020 Tobacco smoking stat [facility] Tobacco smoking consumption unknown [facility] Start: 1980 Sex Assigned At [facility] Tobacco smoking status No Smokin g Status Entered [facility] Start: 11-02-2022 End: 12-16-2022 Tobacco smoking status Never smoked tobacco (finding) [facility] Tobacco smoking status Never [facility] Start: 1980 Sex Assigned At Male [facility] Start: 11-02-2022 End: 03-07-2024 Alcoholic beverage intake Ex-drinker (finding) [facility] Start: 11-02-2022 End: 03-07-2024 History of Social function [facility] Start: 02-21-2012 Sex Male (finding) [facility] Functional Status Date Assessment Result Facility 12-16-2022 Functional Status N/A [facility] 12-10-2021 Functional Status N/A [facility] 10-22-2021 Functional Status N/A [facility] Clinical Notes 10-22-2021 to 03-07-2024 Rodriguez Vang [...] disorder) ADD/ADHD ADHD (attention deficit hyperactivity disorder) (CMS/HCC) ADD/ADHD Chronic sinusitis Excessive salivation Hypertrophy tonsils Hypothyroidism (CMS/HCC) Mental problem Mental retardation Onychomycosis Osteoporosis (CMS/HCC) Perennial allergic rhinitis Seasonal allergies Seizure disorder (CMS/HCC) Spastic quadriparesis (CMS/HCC) Tristen syndrome (CMS/HCC) Past Surgical History: Procedure Laterality Date OTHER [...] CN II: Visual acuity is normal. Visual kessler full to confrontation. CN III, IV, : [...] grossly normal Speech: Aphasia with his MR DD does state words over and over such as his name can not hold on conversation Pronator drift: He will not performed but does not appear to have any new weakness Coordination: no obvious dysmetria Sensory: He does withdraw from the cold in all 4 extremities Motor: LUE 4/5 RUE 4/5 LLE 3/5 RLE 3/5 Tone: No significant spasticity DTR: Biceps, BR 2/4 Patellar 1/ Gait: Wheelchair-bound Romberg's Wheelchair-bound Review and summary [...] not done Battery Life: 06/20 full Model: PeriR Curry Rocha #: [id number] Manufactured: 2020 Implant Date: 09/09/2021 Assessment/Plan Diagnoses [...] clinic: 6 months. documented in this encounter [facility] 01-05-2023 Evaluation note Encounter Date Diagnosis Assessment Notes Dec, COPD (chronic obstructive pulmonary disease) (ICD-10 - J44.9) [place] [employer] Other 08-30-2023 Hospital Discharge instructions Patient Education [...] provider. Document Revised: 08/14/2021 Document Reviewed: 08/14/2021 [employer] Patient Education 2022 Recite Me. Follow Up Care 12/10/2021 11:51:23 With:Abner BYRNE, JUNIOR Hawk, URO Address: When: Unknown Comments:LENORA [facility] 03-07-2023 Evaluation note* Encounter Date Diagnosis Assessment Notes Treatment Notes Treatment Clinical Notes Jun, COPD (chronic obstructive pulmonary disease) (ICD-10 - J44.9) Continue with respiratory regemin, including VEST therapy, as you currently are doing. Call office with respiratory questions or concerns. [employer] Other 09-06-2022 Evaluation note* Encounter Date Diagnosis Assessment Notes Treatment Notes Treatment Clinical Notes Dec, COPD (chronic obstructive pulmonary disease) (ICD-10 - J44.9) Continue with VEST therapy twice a day. Ok to increase to TID if needed. [employer] Other 08-30-2022 Instructions* Patient Instructions* Mora Powell RDH - 12/16/2021 11:57 AM EDT Pt presented today for OR evaluation. Limited eval was completed. Pt's case is not urgent updated contact information and placed Pt on OR list. Step by step process for OR flyer was given to caregiver. Please wait for phone call from OR coordinator. documented in this [id number] History of Present illness Narrative* Mora Powell RDH - 12/16/2021 11:42 AM EDT ----- Thursday, December 16, 2021 at 12:03:50 PM ----- ----- Provider: [id number] Heriberto Powell Hygieni -- Clinic: [place] ----- [facility], Pt is ready for tx. Pt presented for dental evaluation for future OR. Caregiver in the room. Patient is non-verbal. Severe intellectual disability, seizure disorder Caregiver stated patient is not pain and no complaining. Radiograph taken today: no possible due to patient behavior Case requested for OR. Guardian mother Katia Lopez. [phone]. [facility] [phone] EXT [id number] ( [facility] pt's appt) AVS printed and handed flyer for step by step instruction of OR process to Caregiver exam By: Elliott Ham RDH [place]. OR ----- Signed on Thursday, December 16, 2021 at 12:18:18 PM ----- ----- Provider: [id number] Heriberto Adams DDS -- Clinic: [place] ----- documented in this [id number] Hospital Discharge instructions Patient Education 12/10/2021 11:47:35 [...] (electrical nerve stimulation). For women, using a emergency medical dispatcher to prevent urine leaks. This is a [...] right after experiencing incontinence. General instructions Take ddmg-ixd-knhuxlx and prescription medicines only as told by [...] 05/13/2005 Document Revised: 04/15/2018 Document Reviewed: 07/15/2017 [employer] Patient Education 2020 Recite Me. Follow Up Care 10/22/2021 11:38:20 With:Abner BYRNE, JUNIOR Hawk, URO Address: When:1 year Comments:W/ renal US [facility] 07-06-2022 Hospital Discharge instructions Patient Education [...] (electrical nerve stimulation). For women, using a emergency medical dispatcher to prevent urine leaks. This is a [...] right after experiencing incontinence. General instructions Take klfz-vrb-jqhgdtn and prescription medicines only as told by [...] 05/13/2005 Document Revised: 04/15/2018 Document Reviewed: 07/15/2017 [employer] Patient Education 2020 Recite Me. 10/22/2021 11:42:30 Renal Mass Renal Mass A [...] provider gives to you. In general: Take mjle-ajy-gjoheco and prescription medicines only as told by [...] 10/31/2014 Document Revised: 05/12/2018 Document Reviewed: 05/12/2018 [employer] Patient Education 2020 Recite Me. Follow Up Care 09/22/2021 14:10:46 With:Arline Levine MD, UR, URO Address: When:1 month [facility] evaluation + Plan note Future Appointments Appointment Date:11/19/2021 10:00:00 AM Scheduled Provider:Arline Levine MD Location:[facility] Appointment Type:URO Office Visit [facility] evaluation + Plan note Future Appointments Appointment Date:12/16/2022 10:15:00 AM Scheduled Provider:Arline Levine MD Location:[facility] Appointment Type:URO Office Visit [facility] evaluation note* Diagnosis Onset Date Resolution Status COPD (chronic obstructive pulmonary disease) acute Severe intellectual disability [facility] Work Phone: Evaluation note* Diagnosis 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) Spastic hemiplegia affecting dominant side (CMS/HCC) Spastic hemiplegia affecting dominant side Spastic hemiplegia, nondominant side (HCC) (CMS/HCC) Spastic hemiplegia affecting nondominant side Severe intellectual disabilities (CMS/HCC) Severe intellectual disabilities [facility] Diagnosis Caries- Primary Unspecified dental caries [facility] Diagnosis Caries- Primary Unspecified dental caries Caries- Primary Unspecified dental caries [facility] - [facility]orted* Type Description Date Medical History Mental retardation Medical History Seizure Disorder Medical History Tristen Syndrome Medical History ADD Medical History Hypothyroidism Medical History Spastic Quadraparesis Medical History Osteoporosis Medical History Tristen-Beuren syndrome Medical History Seizure disorder Medical History Seizure disorder Medical History COPD Surgical History VNS REPLACED 2021 [employer] Other Hospital course Narrative No data available for this section [facility] Hospital Discharge instructions No data available for this section [facility] data available for this section [facility] Summary Purpose Family History No Family History Records FoundNo Family History Records FoundNo Family History Records FoundNo Family History Records Found Advance Directives No Advanced Directives Records Found Advance Directive Response Recorded Date/ Time Advance Directives No March 4:51pm Advance Directive Response Recorded Date/ Time Advance Directives Yes July 05 024 10:35am Chief Complaint and Reason for Visit Chief Complaint 6 Month f/u- COPD Reason for Visit COPD (chronic obstru ctive pulmonary disease) Severe intellectual disability Chief Complaint H mo f/u COPD Reason for Visit COPD (chronic obstru ctive pulmonary disease) Severe intellectual disability Additional Source Comments Care Team (unrecognized sect ion and content) Order Takers Supervisor Relationship Specialty Start Date End Date Abundio Mares DDS [address] [id number] Resident Dentistry 02/23/20 Order Takers Supervisor Relationship Specialty Start Date End Date Abundio Mares DDS [address] [place] [address] Resident Dentistry 02/23/20 Team Status: Active Member Role Status Dates Fam Ventura DO Primary Care Provider Active Team Status: Inactive Member Role Status Dates Fam Ventura DO Primary Care Provider Active Start: July 06, 2023 End: July 06, 2023 Antionette Castaneda APRN [facility] Attending Provider Active Start: July 06, 2023 End: July 06, 2023 Order Takers Supervisor Relationship Specialty Start Date End Date Vishnu Abundio CHRISBassam [address] [place] [address] Resident Dentistry 02/23/20 Team Status: Inactive Member Role Status Dates Fam Ventura DO Primary Care Provider Active Start: January 11, 2024 End: January 11, 2024 Antionette Castaneda APRN [facility] Attending Provider Active Start: January 11, 2024 End: January 11, 2024 [facility] Active Start: 2023 End: January 11, 2024 Order Takers Supervisor Relationship Specialty Start Date End Date Unallocated, Faye Fermin MD [address] [place] [id number] PCP - General 09/23/22 Fam Ventura MD [facility] [address] [place] [address] Referring Physician Orthopaedic Surgery 09/23/22 Order Takers Supervisor Relationship Specialty Start Date End Date Unallocated, Faye Fermin MD [address] [place] [id number] PCP - General 09/23/22 Fam Ventura MD [facility] [address] [place] [address] Referring Physician Orthopaedic Surgery 09/23/22 Order Takers Supervisor Relationship Specialty Start Date End Date Abundio Mares DDS [address] [place] [id number] Resident Dentistry 02/23/20 Order Takers Supervisor Relationship Specialty Start Date End Date Abundio Mares DDS [address] [place] [phone] Resident Dentistry 02/23/20 REASON FOR VISIT (unrecogniz ed section and content) 6 mo f/u COPD, COPD6 month F ollow up6 month Follow up (unrecognized sect ion and content) No Status Records FoundNo Status Records FoundNo Status Records FoundNo Status Records Found INFORMATION SOURCE (unrecogn ized section and content) DATE CREATED AUTHOR 08/05/2022 [facility] DATE CREATED AUTHOR AUTHOR'S ORGANIZ ATION 01/26/2023 [facility] DATE CREATED AUTHOR AUTHOR'S ORGANIZ ATION 03/09/2024 [facility] DATE CREATED AUTHOR AUTHOR'S ORGANIZ ATION 05/01/2024 [facility] Goals (unrecognized section and content) Goals may [...] BE BASED ON THE PRIMARY CLINICAL RECORDS. [employer] [facility]. provides no warranty or guarantee of the accuracy or completeness of information in this document.
[2024-05-02 09:52] LABS: Ammonia 43 umol/L (11-32)
== END 2024-05-02 08:36 | disposition home or self-care (01) ==
LOC: LAB 08:38
PROVIDERS: PCP Family Medicine; Visit Provider Family Medicine
DX: G40.89 Other seizures (principal); Z79.899 Other long term (current) drug therapy; M81.8 Other osteoporosis without current pathological fracture; K59.00 Constipation, unspecified; K76.82 Hepatic encephalopathy
CPT/HCPCS: 36415; 82140; 82306

== ENCOUNTER 2024-05-30 09:13 | Outpatient (OUT) | payer MEDICARE, MEDICAID, SELFPAY ==
[2024-05-30 09:30] LABS: Ammonia 33 umol/L (11-32)
--- OUTSIDE RECORDS SUMMARY | 2024-06-01 09:18 | XMS_ITS | CCD ---
Author Organization [facility] CliniSyms Care Team Providers Care Food Mobile Driver Name Role Phone FAM VENTURA Primary Care Physician Abundio Mares DDS Unavailable Antionette Castaneda Unavailable [...] DR FAM Duran Admitting Unavailable VENTURA, DR AFM Duran Consulting Unavailable VENTURA, DR FAM Duran [...] Unavailable SHARMILA ., ANJELICA Consulting Unavailable SHARMILA ., ANJELICA Attending Unavailable VENTURA, DR FAM Duran Primary [...] Mares DDS Unavailable Fam Ventura MD Unavailable [phone] Unallocated , [place] Provider Primary Care Diamante conn3 RODRIGUEZ VANG Attending Unavailable RODRIGUEZ VANG Attending Unavailable Allergies Allergy Classification Reported Allergen(s) Allergy Type Date of Onset Reaction(s) Facility (8 sources) Amoxicillin / Clavulanate; Translations: [amoxicillin-clav ulanate] Drug Allergy Unknown [facility] (16 sources) Phenytoin; Translations: [phenytoin] Drug Allergy 3 Unknown [facility] (20 sources) Promethazine; Translations: [promethazine] Drug Allergy 7 Unknown [facility] (11 sources) Phenytoin Drug Allergy 7 Unknown [facility] (11 sources) Amoxicillin-Pot Clavulanate Propensity to adverse reactions to drug 7 Unknown [facility] (1 source) 4-Aminobenzoic Acid Drug Allergy [facility] (1 source) Amoxicillin / Clavulanate Drug Allergy 4 [facility] (1 source) Levamisole Drug Allergy 4 [facility] (1 source) metroNIDAZOLE Drug Allergy [facility] (1 source) Phenytoin Drug Allergy 4 [facility] (1 source) remdesivir (investigational use) Drug allergy (disorder) [facility] (8 sources) Amoxicillin Drug Allergy 3 Unknown [facility] (7 sources) Clavulanate Drug Allergy 3 Unknown [facility] Medications Current Medications Medication Drug Class(es) Dates Sig (Normalized) Sig (Original) Acetaminophen (8 sources) Start: 12-16-2022 acetaminophen Refills(s) 0 Start Date: 12/16/22 Status: Ordered Start: 03-28-2020 Acetaminophen Active 650 MG MO EVERY 4-6 HOURS March 28, 2020 1:00am [...] Active alendronic acid 70 mg oral tablet (20 sources) Bisphosphonate Start: 07-04-2015 alendronate (F OSAMAX) [...] day Active atorvastatin 10 mg oral tablet (20 sources) HMG-CoA Reductase Inhibitor Start: 07-04-2015 atorvastatin [...] day Active budesonide 0.25 mg/ml inhalation suspension (12 sources) Corticosteroid Start: 06-28-2023 take 0.5 mg [...] mg / cholecalciferol 200 unt oral tablet (9 sources) Vitamin D Start: 03-28-2020 take 1 [...] 02/29/2020 Active cloBAZam 10 mg oral tablet (20 sources) Benzodiazepine Start: 07-04-2015 cloBAZam (ONFI) 10 [...] 10:24am 10MG RECTAL GEL, PATIENT TAKES IT MO - wont let me save without route. Start: 07-05-2015 diazepam 10 mg , Rectal, PRN Seizure, Refills(s) 0 Start Date: 07/05/15 Status: Ordered docusate sodium 100 mg oral capsule (15 sources) Start: 10-22-2021 take 1 capsule by [...] 28, 2020 1:00am take [address] [facility] every twenty-four hours Docusate Sodium [...] Status: Ordered felbamate 400 mg oral tablet (20 sources) Anti-epileptic Agent Start: 02-23-2020 felbamate (FELBATOL) 400 MG tablet 02/23/2020 Active felbamate (Felba ela) 400 MG tablet 1 (one) time each day at the same time Active fenofibrate 145 mg oral tablet (10 sources) Peroxisome Proliferator Receptor alpha Agonist Start: 10-22-2021 take 1 mg by mouth once daily fenofibrate 145 mg Tab mg tab(s), Oral, Daily, Refills(s) 0 Start Date: 10/22/21 Status: Ordered fluticasone furoate 0.05 MG/ACTUAT Dry Powder Inhaler (20 sources) Corticosteroid Start: 10-22-2021 fluticasone furoate 50 [...] day Active furosemide 20 mg oral tablet (20 sources) Loop Diuretic Start: 02-23-2020 furosemide (LA SIX) 20 MG tablet 02/23/2020 Active glycopyrrolate 1 mg oral tablet (15 sources) Start: 10-22-2021 take 1 tablet by [...] day Active levETIRAcetam 750 mg oral tablet (20 sources) Start: 03-28-2020 take 1500 mg by mouth twice daily Levetiracetam Active 1500 MG PO Twice daily March 28, 2020 1:00am Start: 07-04-2015 levetiracetam (KEPPRA) 750 MG tablet 02/23/2020 Active take 2 tablets by [facility] in the morning, then take 3 [...] day Active linaclotide 0.145 mg oral capsule (20 sources) Guanylate Cyclase-C Agonist Start: 12-16-2022 Linzess [...] 12:00am magnesium oxide 400 mg oral tablet (12 sources) Start: 03-28-2020 magnesium oxid e 400 [...] Ordered Normal saline (7 sources) Start: 07-05-2015 [place] Saline Alpa al Gel Nasal, TID, Refill(s) 0, Dry nasal passages Start Date: 07/05/15 Status: Ordered [place] Saline Nasal Gel Nasally Active omeprazole 40 mg delayed release oral capsule (20 sources) Proton Pump Inhibitor Start: 02-23-2020 omeprazole (PRILOSEC) 40 MG capsule 02/23/2020 Active OXcarbazepine 600 mg oral tablet (20 sources) Anti-epileptic Agent Start: 06-28-2023 take 300 mg by mouth twice daily Oxcarbazepine Active 300 MG PO Twice daily June 28, 2023 1:14pm Start: 02-23-2020 End: 06-28-2023 oxcarbazepine (TRILEPTAL) 60 0 MG tablet 02/23/2020 Active Start: 02-23-2020 End: 06-28-2023 oxcarbazepine (TRILEPTAL) 30 0 MG tablet 02/23/2020 Active Start: 07-05-2015 [...] bid, Prophylaxis Start Date: 07/05/15 Status: Ordered [id number] oral powder for reconstitution (1 source) Start: [id number] oral powder for reconstitution Start Date: 12/16/22 Status: Ordered polyethylene glycol 3350 86556 mg powder for oral solution (4 sources) [...] Ordered sennosides, penitentiary 8.6 mg oral tablet (2 sources) Start: [...] e a day Active Sodium Chloride-Aloe Vera ([place] Saline) gel (2 sources) Start: 06-28-2023 Sodium Chlorid e-Aloe Vera ([place] Saline) gel Active 1 APPLIC TOPICAL Daily [...] Translations: [ADHD UNSPECIFIED TYPE] Onset: 08-05-2022 Chronic Attention-deficit, conduct, and disruptive behavior disorders (2 sources) Disruptive behavior disorder; 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, unspecified] 05-31-2024 Chronic Chronic obstructive pulmonary disease and bronchiectasis (14 sources) Chronic obstructive lung disease; Translations: [Chronic obstructive pulmonary disease, unspecified] Onset: 12-23-2021 Resolved: 12-23-2021 Chronic Developmental disorders (20 sources) Severe intellectual disability; Translations: [Mental handicap] [...] RX INIT] Onset: 08-05-2022 Episodic Epilepsy; convulsions (20 sources) Epilepsy, unspecified, not intractable, without status [...] Onychomycosis 06-30-2013 Episodic Nephritis; nephrosis; renal sclerosis (6 sources) Unspecified nephritic syndrome with unspecified morphologic [...] 06-30-2013 Chronic Other aftercare (5 sources) Other assisted (current) drug therapy; Translations: [OTH PST MANAGER CURRENT DRUG THERAPY] Onset: 06-03-2022 Episodic Other [...] Translations: [Chronic sinusitis, unspecified] 07-06-2023 Chronic Paralysis (20 sources) Tetraplegia; Translations: [Quadriplegia, unspecified] Onset: 09-23-2021 [...] NEC INITIAL] Onset: 09-29-2021 Episodic Epilepsy; convulsions (14 sources) Seizure disorder; Translations: [Unspecified convulsions] Onset: 01-18-2022 06-30-2013 Episodic Epilepsy; convulsions (4 sources) Epilepsy; convulsions 03-13-2024 Fever of unknown [...] Interpretation Reference Range Facility No Panel Informationon 05-31 [employer] Progress Noteson 04-25-2024 Private Equity Analyst Authentication Interface Message Text Parent/guardian/patie nt was contacted for PSE AND OR scheduled -- confirmed information with mom, also informed mom importance of receiving PSE call -- if not received surgery will be canceled. 06/12/2024 ----- Thursday, April 25, 2024 at 2:35:00 PM ----- ----- Provider: PEARL Ace, Dental-Tool Die Maker -- Clinic: [place] ----- Normal [facility] [email or web address] [facility] No Panel Informationon 03-13 As in note [facility] [employer] ([employer] Ambulatory Visit Summaryon 0 12-16-2022 Ambulatory Visit Summary KAYLEN LOPEZJERRI Singh :1980 Visit Date:12/16/2022 Ambulatory Visit Instructions Your [...] (oxcarbazepine 600 mg Tab) polyethylene glycol 3350 ([id number] oral powder for reconstitution) polyethylene glycol 3350 (polyethylene glycol 3350 17 gram packet) rifaximin (Xifaxan 550 mg oral tablet) senna (Senna 8.6 mg oral tablet) sodium chloride nasal ([place] Saline Nasal Gel) tamsulosin Discharge Vitals Temperature [...] Application T (more content not included)... Normal [facility] Patient Educationon 12-17-19 Patient Education Obstetrics and [...] provider. Document Revised: 08/14/2021 Document Reviewed: 08/14/2021 [employer] Patient Education ? 2022 [employer] [facility] Physician Orderon 12-16-2022 Physician Order [id number] .[id number]:127 Normal [facility] RAD - Ultrasound Reporton RAD - Ultrasound Report [id number] .[id number]:127 Normal [facility] Urology Office/Clinic Noteon 12-16-2022 Urology Office/Clinic Note [...] of retractile testes. Pt currently resides in [facility]. CBC/CMP 08/01/22 1. Retractile testis (Q55.22: [...] Eye-Both, QID atorvastatin, 10 mg, Oral, Daily [place] Saline Nasal Gel, Nasal, TID azelastine nasal 137 mcg/inh spray, 2 spray(s), Nasal, As (more content not included)... Normal [facility] Comment on above: Result Comment: Elec tronically [...] by: GUANAKITO MEADE Date: 2022-08-04 18:50 Normal [facility] AMMONIAon 08-02-2022 Ammonia (P) [Moles/Vol] 87 umol/L Critically high 11-32 [facility] Comment on above: Performed By: #### B MP #### [facility] [address] [place] [address] Dr. Deepak Greenfield AMMONIAon 08-01-2022 Ammonia (P) [Moles/Vol] 42 umol/L Critically high 11-32 [facility] Comment on above: Performed By: #### M G, CMP #### [facility] [address] [place] [address] Dr. Deepak Greenfield CBC W MANUAL DIFFon 08-02-19 23 ATYPICAL LYMPH # 0.41 103/ul Normal [facility] Comment on above: Performed By: #### M G, CMP #### [facility] [address] [place] [address] Dr. Deepak Greenfield ATYPICAL LYMPH % 7 % Normal [facility] Comment on above: Performed By: #### M G, CMP #### [facility] [address] [place] [address] Dr. Deepak Greenfield BAND # 0.0 103/ul Normal 0.0-0.3 [facility] Comment on above: Performed By: #### M G, CMP #### [facility] [address] [place] [address] Dr. Deepak Greenfield BAND % 0 % Normal 0-5 [facility] Comment on above: Performed By: #### M G, CMP #### [facility] [address] [place] [address] Dr. Deepak Greenfield BASOM # 0.00 103/ul Normal 0.00-0.10 [facility] Comment on above: Performed By: #### M G, CMP #### [facility] [address] [place] [address] Dr. Deepak Greenfield BASOM % 0.0 % Critically low 0.2-2.0 [facility] Comment on above: Performed By: #### M G, CMP #### [facility] [address] [place] [address] Dr. Deepak Greenfield BLAST # Normal [facility] Comment on above: Performed By: #### M G, CMP #### [facility] [address] [place] [address] Dr. Deepak Greenfield BLAST % Normal [facility] Comment on above: Performed By: #### M G, CMP #### [facility] [address] [address] [address] Deepak Greenfield CORRECTED WBC Normal 4.0-11.0 [facility] Comment on above: Performed By: #### M G, CMP #### [facility] [address] [address] [address] Deepak Greenfield EOS # 0.06 103/ul Normal 0.00-0.70 [facility] Comment on above: Performed By: #### M G, CMP #### [facility] [address] [address] [address] Deepak Greenfield EOS% 1.0 % Normal 0.9-7.0 [facility] Comment on above: Performed By: #### M G, CMP #### [facility] [address] [address] [address] Deepak Greenfield HCT 37.6 % Critically low 42.0-54.0 [facility] Comment on above: Performed By: #### M G, CMP #### [facility] [address] [address] [address] Deepak Greenfield HGB 12.3 g/dl Critically low 14.0-18.0 [facility] Comment on above: Performed By: #### M G, CMP #### [facility] [address] [address] [address] Deepak Greenfield LYMPHM # 1.91 103/ul Normal 1.20-3.80 [facility] Comment on above: Performed By: #### M G, CMP #### [facility] [address] [address] [address] Deepak Greenfield LYMPHM% 33.0 % Normal 20.5-60.0 [facility] Comment on above: Performed By: #### M G, CMP #### [facility] [address] [address] [address] Deepak Greenfield MCH 31.7 pg Normal 25.9-34.0 [facility] Comment on above: Performed By: #### M G, CMP #### [facility] [address] [place] [address] Dr. Deepak Greenfield MCHC 32.7 g/dl Normal 29.9-35.2 [facility] Comment on above: Performed By: #### M G, CMP #### [facility] [address] [place] [address] Dr. Deepak Greenfield MCV 96.9 fL Critically high 80.0-94.0 [facility] Comment on above: Performed By: #### M G, CMP #### [facility] [address] [place] [address] Dr. Deepak Greenfield METAMYELOCYTE # Normal [facility] Comment on above: Performed By: #### M G, CMP #### [facility] [address] [place] [address] Dr. Deepak Greenfield METAMYELOCYTE % Normal [facility] Comment on above: Performed By: #### M G, CMP #### [facility] [address] [place] [address] Dr. Deepak Greenfield MONOM# 0.29 103/ul Critically low 0.30-0.80 [facility] Comment on above: Performed By: #### M G, CMP #### [facility] [address] [place] [address] Dr. Deepak Greenfield MONOM% 5.0 % Normal 1.7-12.0 [facility] Comment on above: Performed By: #### M G, CMP #### [facility] [address] [place] [address] Dr. Deepak Greenfield MPV 11.0 fL Normal 9.5-13.5 [facility] Comment on above: Performed By: #### M G, CMP #### [facility] [address] [place] [address] Dr. Deepak Greenfield MYELOCYTE # Normal [facility] Comment on above: Performed By: #### M G, CMP #### [facility] [address] [place] [address] Dr. Deepak Greenfield MYELOCYTE % Normal [facility] Comment on above: Performed By: #### M G, CMP #### [facility] [address] [address] [address] Deepak Greenfield NRBC Normal [facility] Comment on above: Performed By: #### M G, CMP #### [facility] [address] [address] [address] Deepak Greenfield PLT 208 103/ul Normal 150-450 [facility] Comment on above: Performed By: #### M G, CMP #### [facility] [address] [address] [address] Deepak Greenfield RBC 3.88 106/ul Critically low 4.70-6.10 [facility] Comment on above: Performed By: #### M G, CMP #### [facility] [address] [place] [address] Dr. Deepak Greenfield RDW 12.9 % Normal 11.0-15.0 [facility] Comment on above: Performed By: #### M G, CMP #### [facility] [address] [place] [address] Dr. Deepak Greenfield SEG # 3.13 103/ul Normal 1.40-6.50 [facility] Comment on above: Performed By: #### M G, CMP #### [facility] [address] [place] [address] Dr. Deepak Greenfield SEG % 54.0 % Normal 43.0-75.0 [facility] Comment on above: Performed By: #### M G, CMP #### [facility] [address] [place] [address] Dr. Deepak Greenfield STOMATOCYTES 3+ Normal [facility] Comment on above: Performed By: #### M G, CMP #### [facility] [address] [place] [address] Dr. Deepak Greenfield WBC 5.8 103/ul Normal 4.0-11.0 [facility] Comment on above: Performed By: #### M G, CMP #### [facility] [address] [place] [address] Dr. Deepak Greenfield PROF CHEM 8 (BAS METB)on Anion gap [Moles/Vol] 16.1 mmol/L Normal [facility] Comment on above: Performed By: #### B MP #### [facility] [address] [address] [address] Deepak Greenfield Calcium [Mass/Vol] 9.3 mg/dL Normal 8.5-10.1 [facility] Comment on above: Performed By: #### B MP #### [facility] [address] [address] [address] Deepak Greenfield Chloride [Moles/Vol] 105 mmol/L Normal 98-107 [facility] Comment on above: Performed By: #### B MP #### [facility] [address] [address] [address] Deepak Greenfield CO2 [Moles/Vol] 27.6 mmol/L Normal 21.0-32.0 [facility] Comment on above: Performed By: #### B MP #### [facility] [address] [place] [address] Dr. Deepak Greenfield Creatinine [Mass/Vol] 0.96 mg/dL Normal 0.70-1.30 [facility] Comment on above: Performed By: #### B MP #### [facility] [address] [place] [address] Dr. Deepak Greenfield EGFR-AF BRITISH >60 Normal >=60 [facility] Comment on above: Performed By: #### B MP #### [facility] [address] [place] [address] Dr. Deepak Greenfield EGFR-NON AF BRITISH >60 Normal >=60 [facility] Comment on above: Performed By: #### B MP #### [facility] [address] [place] [address] Dr. Deepak Greenfield Glucose [Mass/Vol] 160 mg/dL Critically high 74-106 [facility] Comment on above: Performed By: #### B MP #### [facility] [address] [place] [address] Dr. Deepak Greenfield Potassium [Moles/Vol] 3.7 mmol/L Normal 3.5-5.1 [facility] Comment on above: Performed By: #### B MP #### [facility] [address] [address] [address] Deepak Greenfield Sodium [Moles/Vol] 145 mmol/L Normal 136-145 [facility] Comment on above: Performed By: #### B MP #### [facility] [address] [place] [address] Dr. Deepak Greenfield Urea nitrogen [Mass/Vol] 5.0 mg/dL Critically low 7.0-18.0 [facility] Comment on above: Performed By: #### B MP #### [facility] [address] [place] [address] Dr. Deepak Greenfield Urea nitrogen/Creatinine [Mass ratio] 5.2 mg/mg Normal [facility] Comment on above: Performed By: #### B MP #### [facility] [address] [place] [address] Dr. Deepak Greenfield AMMONIAon 07-31-2022 Ammonia (P) [Moles/Vol] 94 umol/L Critically high 11-32 [facility] Comment on above: Performed By: #### M G, CMP #### [facility] [address] [place] [address] Dr. Deepak Greenfield CBC AUTO DIFFon 07-31-2022 BASO # 0.0 103/ul Normal 0.0-0.1 [facility] Comment on above: Performed By: #### B MP #### [facility] [address] [place] [address] Dr. Deepak Greenfield Basophils/100 WBC (Bld) 0.1 % Critically low 0.2-2.0 [facility] Comment on above: Performed By: #### B MP #### [facility] [address] [place] [address] Dr. Deepak Greenfield EO # 0.0 103/ul Normal 0.0-0.7 [facility] Comment on above: Performed By: #### B MP #### [facility] [address] [place] [address] Dr. Deepak Greenfield Eosinophils/100 WBC (Bld) 0.0 % Critically low 0.9-7.0 [facility] Comment on above: Performed By: #### B MP #### [facility] [address] [place] [address] Dr. Deepak Greenfield Erythrocyte distribution width (RBC) [Ratio] 13.1 % Normal 11.0-15.0 [facility] Comment on above: Performed By: #### B MP #### [facility] [address] [place] [address] Dr. Deepak Greenfield Hematocrit (Bld) [Volume fraction] 32.4 % Critically low 42.0-54.0 [facility] Comment on above: Performed By: #### B MP #### [facility] [address] [place] [address] Dr. Deepak Greenfield Hemoglobin (Bld) [Mass/Vol] 10.9 g/dL Critically low 14.0-18.0 [facility] Comment on above: Performed By: #### B MP #### [facility] [address] [place] [address] Dr. Deepak Greenfield IG # 0.02 10e3/ul Normal 0.00-0.03 [facility] Comment on above: Performed By: #### B MP #### [facility] [address] [place] [address] Dr. Deepak Greenfield IG % 0.3 % Normal 0.0-0.5 [facility] Comment on above: Performed By: #### B MP #### [facility] [address] [place] [address] Dr. Deepak Greenfield LYMPH # 2.7 103/ul Normal 1.2-3.8 [facility] Comment on above: Performed By: #### B MP #### [facility] [address] [place] [address] Dr. Deepak Greenfield Lymphocytes/100 WBC (Bld) 38.9 % Normal 20.5-60.0 [facility] Comment on above: Performed By: #### B MP #### [facility] [address] [place] [address] Dr. Deepak Greenfield MANUAL DIFF REQ NO Normal [facility] Comment on above: Performed By: #### B MP #### [facility] [address] [place] [address] Dr. Deepak Greenfield MCH (RBC) [Entitic mass] 32.3 pg Normal 25.9-34.0 [facility] Comment on above: Performed By: #### B MP #### [facility] [address] [place] [address] Dr. Deepak Greenfield MCHC (RBC) [Mass/Vol] 33.6 g/dL Normal 29.9-35.2 [facility] Comment on above: Performed By: #### B MP #### [facility] [address] [place] [address] Dr. Deepak Greenfield MCV (RBC) [Entitic vol] 96.1 fL Critically high 80.0-94.0 [facility] Comment on above: Performed By: #### B MP #### [facility] [address] [place] [address] Dr. Deepak Greenfield MONO # 0.3 103/ul Normal 0.3-0.8 [facility] Comment on above: Performed By: #### B MP #### [facility] [address] [place] [address] Dr. Deepak Greenfield Monocytes/100 WBC (Bld) 4.9 % Normal 1.7-12.0 [facility] Comment on above: Performed By: #### B MP #### [facility] [address] [place] [address] Dr. Deepak Greenfield NEUT # 3.9 103/ul Normal 1.4-6.5 [facility] Comment on above: Performed By: #### B MP #### [facility] [address] [place] [address] Dr. Deepak Greenfield Neutrophils/100 WBC (Bld) 55.8 % Normal 43.0-75.0 [facility] Comment on above: Performed By: #### B MP #### [facility] [address] [place] [address] Dr. Deepak Greenfield Platelet mean volume (Bld) [Entitic vol] 9.7 fL Normal 9.5-13.5 [facility] Comment on above: Performed By: #### B MP #### [facility] [address] [address] [address] Deepak Greenfield PLT 296 103/ul Normal 150-450 [facility] Comment on above: Performed By: #### B MP #### [facility] [address] [address] [address] Deepak Greenfield RBC 3.37 106/ul Critically low 4.70-6.10 [facility] Comment on above: Performed By: #### B MP #### [facility] [address] [address] [address] Deepak Greenfield WBC 7.0 103/ul Normal 4.0-11.0 [facility] Comment on above: Performed By: #### B MP #### [facility] [address] [place] [address] Dr. Deepak Greenfield PROF CHEM 8 (BAS METB)on Anion gap [Moles/Vol] 14.9 mmol/L Normal [facility] Comment on above: Performed By: #### C BC #### [facility] [address] [place] [address] Dr. Deepak Greenfield Calcium [Mass/Vol] 8.8 mg/dL Normal 8.5-10.1 [facility] Comment on above: Performed By: #### C BC #### [facility] [address] [place] [address] Dr. Deepak Greenfield Chloride [Moles/Vol] 105 mmol/L Normal 98-107 [facility] Comment on above: Performed By: #### C BC #### [facility] [address] [place] [address] Dr. Deepak Greenfield CO2 [Moles/Vol] 26.4 mmol/L Normal 21.0-32.0 [facility] Comment on above: Performed By: #### C BC #### [facility] [address] [place] [address] Dr. Deepak Greenfield Creatinine [Mass/Vol] 0.70 mg/dL Normal 0.70-1.30 [facility] Comment on above: Performed By: #### C BC #### [facility] [address] [address] [address] Deepak Greenfield EGFR-AF BRITISH >60 Normal >=60 [facility] Comment on above: Performed By: #### C BC #### [facility] [address] [place] [address] Dr. Deepak Greenfield EGFR-NON AF BRITISH >60 Normal >=60 [facility] Comment on above: Performed By: #### C BC #### [facility] [address] [address] [address] Deepak Greenfield Glucose [Mass/Vol] 129 mg/dL Critically high 74-106 [facility] Comment on above: Performed By: #### C BC #### [facility] [address] [place] [address] Dr. Deepak Greenfield Potassium [Moles/Vol] 4.3 mmol/L Normal 3.5-5.1 [facility] Comment on above: Performed By: #### C BC #### [facility] [address] [place] [address] Dr. Depeak Greenfield Sodium [Moles/Vol] 142 mmol/L Normal 136-145 [facility] Comment on above: Performed By: #### C BC #### [facility] [address] [place] [address] Dr. Deepak Greenfield Urea nitrogen [Mass/Vol] 6.0 mg/dL Critically low 7.0-18.0 [facility] Comment on above: Performed By: #### C BC #### [facility] [address] [place] [address] Dr. Deepak Greenfield Urea nitrogen/Creatinine [Mass ratio] 8.6 mg/mg Normal [facility] Comment on above: Performed By: #### C BC #### [facility] [address] [place] [address] Dr. Deepak Greenfield AMMONIAon 07-30-2022 Ammonia (P) [Moles/Vol] 64 umol/L Critically high 11-32 [facility] Comment on above: Performed By: #### C BC #### [facility] [address] [place] [address] Dr. Deepak Greenfield CBC AUTO DIFFon 07-30-2022 BASO # 0.0 103/ul Normal 0.0-0.1 [facility] Comment on above: Performed By: #### I NFLUAB #### [facility] [address] [place] [address] Dr. Deepak Greenfield Basophils/100 WBC (Bld) 0.0 % Critically low 0.2-2.0 [facility] Comment on above: Performed By: #### I NFLUAB #### [facility] [address] [place] [address] Dr. Deepak Greenfield EO # 0.0 103/ul Normal 0.0-0.7 [facility] Comment on above: Performed By: #### I NFLUAB #### [facility] [address] [place] [address] Dr. Deepak Greenfield Eosinophils/100 WBC (Bld) 0.0 % Critically low 0.9-7.0 [facility] Comment on above: Performed By: #### I NFLUAB #### [facility] [address] [place] [address] Dr. Deepak Greenfield Erythrocyte distribution width (RBC) [Ratio] 13.1 % Normal 11.0-15.0 [facility] Comment on above: Performed By: #### I NFLUAB #### [facility] [address] [place] [address] Dr. Deepak Greenfield Hematocrit (Bld) [Volume fraction] 31.4 % Critically low 42.0-54.0 [facility] Comment on above: Performed By: #### I NFLUAB #### [facility] [address] [place] [address] Dr. Deepak Greenfield Hemoglobin (Bld) [Mass/Vol] 10.5 g/dL Critically low 14.0-18.0 [facility] Comment on above: Performed By: #### I NFLUAB #### [facility] [address] [place] [address] Dr. Deepak Greenfield IG # 0.01 10e3/ul Normal 0.00-0.03 [facility] Comment on above: Performed By: #### I NFLUAB #### [facility] [address] [address] [address] Deepak Greenfield IG % 0.2 % Normal 0.0-0.5 [facility] Comment on above: Performed By: #### I NFLUAB #### [facility] [address] [address] [address] Deepak Greenfield LYMPH # 1.5 103/ul Normal 1.2-3.8 [facility] Comment on above: Performed By: #### I NFLUAB #### [facility] [address] [address] [address] Deepak Greenfield Lymphocytes/100 WBC (Bld) 27.5 % Normal 20.5-60.0 [facility] Comment on above: Performed By: #### I NFLUAB #### [facility] [address] [place] [address] Dr. Deepak Greenfield MANUAL DIFF REQ NO Normal [facility] Comment on above: Performed By: #### I NFLUAB #### [facility] [address] [place] [address] Dr. Deepak Greenfield MCH (RBC) [Entitic mass] 32.4 pg Normal 25.9-34.0 [facility] Comment on above: Performed By: #### I NFLUAB #### [facility] [address] [place] [address] Dr. Deepak Greenfield MCHC (RBC) [Mass/Vol] 33.4 g/dL Normal 29.9-35.2 [facility] Comment on above: Performed By: #### I NFLUAB #### [facility] [address] [place] [address] Dr. Deepak Greenfield MCV (RBC) [Entitic vol] 96.9 fL Critically high 80.0-94.0 [facility] Comment on above: Performed By: #### I NFLUAB #### [facility] [address] [place] [address] Dr. Deepak Greenfield MONO # 0.2 103/ul Critically low 0.3-0.8 [facility] Comment on above: Performed By: #### I NFLUAB #### [facility] [address] [address] [address] Deepak Greenfield Monocytes/100 WBC (Bld) 2.9 % Normal 1.7-12.0 [facility] Comment on above: Performed By: #### I NFLUAB #### [facility] [address] [address] [address] Deepak Greenfield NEUT # 3.8 103/ul Normal 1.4-6.5 [facility] Comment on above: Performed By: #### I NFLUAB #### [facility] [address] [place] [address] Dr. Deepak Greenfield Neutrophils/100 WBC (Bld) 69.4 % Normal 43.0-75.0 [facility] Comment on above: Performed By: #### I NFLUAB #### [facility] [address] [place] [address] Dr. Deepak Greenfield Platelet mean volume (Bld) [Entitic vol] 9.4 fL Critically low 9.5-13.5 [facility] Comment on above: Performed By: #### I NFLUAB #### [facility] [address] [place] [address] Dr. Deepak Greenfield PLT 256 103/ul Normal 150-450 [facility] Comment on above: Performed By: #### I NFLUAB #### [facility] [address] [place] [address] Dr. Deepak Greenfield RBC 3.24 106/ul Critically low 4.70-6.10 [facility] Comment on above: Performed By: #### I NFLUAB #### [facility] [address] [place] [address] Dr. Deepak Greenfield WBC 5.5 103/ul Normal 4.0-11.0 [facility] Comment on above: Performed By: #### I NFLUAB #### [facility] [address] [place] [address] Dr. Deepak Greenfield Coding Summary.on 07-30-2022 Coding Summary. CD:[id number] W w+PGhlYWQ+MI9SWPDwE30 mxDMnuC7gM0DRSWyZBtvz SGRJMImJZhEgqfWyFZ4pd XNjZXJu IC8+HV4zUNYdXkarzPDyn 2D7eSD6O32klv3jWHsobH U1EAHoIoQdjuafw8tpfZk 6IDcuNmluOyBt MSZdnG77KDZ6tA37Ed84p CXeuGIhn7mibKq6ZqZpMD IcVJQ3dHzjBWgpw5AnDFM yL84wbLHco1X6 ZIUxoGmivVZtKdJlbGC3i G8eTJulizkvb9usqshhPg g2mu21aEZnj5S9qTZ1J8E iodL6JWZnpYTz McruoTNHnG8mwgngx5ies lexLxXkLYKmAKj8ENy8IT BarGycNcEgQJ82LHD4ESV wxhCaP5EnPQKi rPvxEqN6f3I6Nl2JL6FDL rmlP3TTDNBNGVuxlIA+PC 69tj13T3OaIcsfSuv3UNT aGNM7bBT6vL2z QYErLCsfp4R4aCM9J1Ued sUftt5gs4pySYUzZMyvE3 0bpALhm9X5BVIkuPW6DEF eaPnjTeBroT49 Oyc+MKWoyIbgq4MeJewmk 0frl6aanEj5GjnoNNHvhj KrwFpwBNG4y6YjVe2mELD bpQS9fQM9gW0w QpQvGpL7NKhfM285SgLze LLwVmxgR66nZ7XdgYN+PH OaDyj4JPDptZrrGJ3qP6K hZGRpbmctbGVm hDttUM5jPPFginhxSTDvw I5iNHIxN2p1AsUjKkO9WO olU9AkDPUcthiyMe28bE6 hIjIuAgI0UJbj J9MymjK6KGFhgRTfYYnaN FU3E04bo6C4KIPuYVYcYP P0kWM8bI7lpVojnnnvuTF mdDsgdmVydGlj LVeqWIojS588VRBqaDqpH kNvZGluZyBEYXRlOiAgMD QvMTMvMjAyMzwvdGQ+PHR cABC6zZftDIAt gNUyTMrqGb1tsNwvkQwyH K8wDGLkanibCVMfjG1yNA AgyVVqjNzhUK8xGJIkmud lp546HbHmMIF8 SMDdaLEcQ4QmyE7cYrOrW BJwQAWlV4UooKGcVYbgS8 15LUlqYzP3MUFkcdIsC2G sLWFsaWduOiB0 q4D8Hc1Nh4WreoymC5Etq ZPgSdGpAmazMBx1S1IsUk wvdHI+CU77INYqZL32ZBm 2BIE9zJkpAYat SDMaZ8XyvM7bNhKnFLOaO GRkOyc+PHRhYmxlIHdpZH RoPScxMDAlJyBzdHlsZT0 lUw6oFXLfEUVw xRkznUFoXoQqg4dyTGGsT EjnGP5iwGhlI3ZrpMR1QJ Nnk6k7Eo19F73qA7MawNM +WCCulKM8bHK5 tH9mPzWhTmS9MEmeN681O iSnhREySejtj1yga0pynN k1NnE5TKJmqoZqcSumMUS 3x9RxHm32M79l IHdpZHRoPSIxNSUiIHZhb Rorll8jyH7sVe7+PGNvbC T9aBM9iI0uHxGgUgX7AKg vC666MxNdpPQh Ilomt9tpm7cdpYs2SbScV RBxzrHrlWepWOB6u3PqWi 58Z7HxxGqdx0SsIxc9dq1 8oLNja9M1cXJ6 W5CoABWoordxoDMgbRmyQ M6wZIVsygwuYWSreF1xWJ UjS5t6ZnErElJ7KRynG8Z arhU4QYQhuOJh AFGgwDDXiE2ivpqez0czw dqgEdBiTHFmYIc5BUr3DT KhlDuoZcNqTMU6UjH7RGM 3fIDowF6wjIeq lctyeM2nWkj+DPR3bOJpf OHMYJ1wVhxnpIK+PHRkIH S6lJeyPFdkSWRyuO0tLNR eE6m2UoBbYmU0 KZwvW6QbcuN5SBXqxGMtV XIszMIBhN6nwcwuo4mxdk ysJiYsHIJsAKg3TGw0DHF saWduOiBsZWZ0 NdH3YGF5bPLofF7ieYatz xeqjS2tBso+QmlydGggRG G6QZc1E7ZgYnn5RTWnkCe lFG3dqPFqYMgn Mq7ehFmqkXheAB3gRPAel vxra726WaMag3xnUPGgmZ LsPWujFJF8M63cm0M4WQH lYDRpTKS8lNQ2 zO3nbThumjuasICrlEnjg lRgbKrlHSdfESgnU782PQ YjiKghFyZsGWx4H2GtYen 9AXGukSefVT2q jVBhPKnfMx2jkVcrlSmoT K0gGNWlfjghs900NlImn5 fgWGPmbUYaIAstAWY8U41 hr3E0UBUtYNRf YOK4aSR7nQ5mjGuziryys GVmdDsgdmVydGljYWwtYW llB464YPIooAelJeNzePm 4W6KmHgd9UKEy vKrhXU4tzMUdWBkzIo2lg LmuyXgsKB5fVUHciwjou7 09NxXaf1zfIJSrgVXwEFp cAXV0N59rp5F4 THVkYIDrDSA2jJG3yX3jf GlnbjogbGVmdDsgdmVydG gbOYoxQJivD907PBWtyKu nPlBhdGllbnQg QFmtHDg7B5EiYdrysCX+P J47XUKyFO18dSNynNQjs4 jnjUn8XnOhSXBnUGS8tXc wBNcos8UuDVJt B30hiJFqr0R2DYIdnPavv EYsRlTsgWH3zK0uXYpzln ids3itcqlnVsnvk3yzri1 0xH14L74wMKzb ZHRoPSIzMCUiIHZhbGlnb q4toW1aDz0+DNWmeKN6gJ Y4tZ2oTBWrKzS2AUrfA13 9InRvcCIvPjxj g2kxr4rpzTj9NeT5ETXru jGrlFyjNRY4d4TnEf55H9 9sIHdpZHRoPSIyMCUiIHZ xaPxoeu0tcH2o Ii8+JWHurHQ7kFM8iE8tM qYzFsV1RRugJ636BgJozA SaYhlsB05bX0UizVT+PHR rHfy4EXBwsEwp MN1tzCSfTQyxGm9tTHB5J uJcTpMzSZutG6YbOAUfvl jrcfvlqQO9QRPoVLPbiL8 5Zg8kdRicSHKl tUXBpY7urphpo3drnkduD bBjKPAoYHe7KGy1WODsqL rzFoKoWJF3EnX8XUC5mBP znW6olYqknfhs fY5dO2ZqZKLkqlshOt85u S9wEcSuKkJ8OBjfUxt+U0 0HIWYUEPCNTODSSoYYPZ2 7JL05tBJhb6L6 wNG0C3MmLWCmaxwaqutby XK8LZFlXVHlqD81sJMhPK wxIh8es4X8g313JSXvHSO xqA94Zi6kaUoc UIActBTCsH7depijb1btz nzcCzCwKCEgJKe3BYr5NC JenYakOoDoNDR7TcF3DJX 8oHIauT5feJtj czpxnW8gXkj+MTAvMTYvM Aq8YZwxmIP+BDGlISB8lD kwQYxfESDvuP0oHXMhZ2w 8PwKrKfJ9WJtf M4PoRPIjmhokQt74mS5zP hVpDtL8JPpjR9WtauA6YT GdyVEdRAsxBWJ4N02qa4T 2DIBhIYEsOVA2 dHB3iG0syIllwzeuxAAkj DsgdmVydGljYWwtYWxpZ2 46IHRvcDsnPjQyIFllYXJ bJX66MZ65gRNh a6O1xKM5W3DdSNLamnsaj rezrWS7NHYdFMSzuO39cO YwELbbJx1ip1Q3o272FEC dVKSusG20Ex7q bSkmRGFuuYJFuW6bcqcnd 1snlwltNnJuQSLaWYf0DA r0VHFakEkuWpEaPOQ7SyS 5UZF1eUMqwW5s lUzaxdaguL3hMkd+TWFsZ TwvdGQ+JARnLYR2wSpdQV lgDVVldT1mYXAlA0m6GlT tMzV3ZCisO8Td PKEcfjomOv20eH8nUvIsN jW8RAfoC0YutiB4VMTttO UbPVwhYAK7I38fi0U0QYH eMTEdRKQ2qTT8 wR2cnThwqwcytTKvjDwoa sFvjAtaHLsaLUyyK808SR SnhQaeYq91iNLqhGirdaN 0O8XlBasyhVE+ VQ66RQHaGZ34zYGzfOEdt 8thbGd5HgCaEFQqIGK0eF tkVGogf9TyNYHlR60plGK fr2M2AGIvaObv xRNiLkBstNA5iZ2zYYygd wwfk5ulilytQbfgm3ixjx 00vD49T05sVKctITTrXEI zMCUiIHZhbGln si7ryE5nVv8+SDTpsVZ2b GW2fK1rHaRoEuI9IOnzZ0 52CvCstBPnPxtsd0nca4f upLj6DdEjQTDj feYqvNymUXV1m5LmWv95V 29sIHdpZHRoPSIyMCUiIH RtdJcgqf2ybY8sMp9+PC9 xp8pspl97lG15 dHI+CCYxMNL9qBhsNWoaI QLjxZ1mBVrfFfJ4KJOrCw NmiU52zTSuYShfWa6otXe oyQpgYT3cGHMw trsql942TpFoe0ubDRWbr STdVSjzDAJ3Q00fk0T1ES PqFZPePBT6rNJ4qJ9qtOe nbjogbGVmdDsg roRxrWapCBsjLJqrM045V NWbpIkuCbHdwXWnD2prty BIRL7eBtmjsYF+PHRkIHN 0eWxlPSdwYWRk jR8aNGRoW8y1VuPsAbV4H HdrJ7YuegM9RQQmmSEeUD KvmLRYaF3svkiic2dsnhn gIzAwMDAwMDt0 UYw5GTIuoZoxNiIhKYA3G zO4ELP5mNIqlI7cfVsuey scdV3zHen+RklOOjwvdGQ +YYOoWCR8kCys VBitQYZreS2rHGFoP9r4P uXcRwR9FDwtR4HcyeV3AT JuwQLcRZZjpKFOtH6otbc yd3blkdfhKlBk DOStUQz7QKc0RROlwVreP pVdAOU5DuQ8DBT3lFLrcA 8icXvijgfhmU0eWjg+TVJ OOjwvdGQ+PHRk CPQ4tJinRMpcGYIlvL6wQ NDgN4z8WpBjPkB6ZIcrM8 KrkpH2MLAdrFAiSFJawKK QgZ1rzcicn5uj etdkOfSeNLSgGEg8PEa4F HZrmAobCvHjBKH6LaE7OV G8qEBwvC8ylZydaosibM2 wOyc+CCI1LCT0 TN32EZ06G9VbArpcnQGpx +PHRhYmxlIHdpZHRoPS gyFPAbLuVppAuuSQ2nCt0 yZGVyLWNvbGxh cHNlOiBj (more content not included)... Normal [facility] PROF CHEM 8 (BAS METB)on Anion gap [Moles/Vol] 8.3 mmol/L Normal [facility] Comment on above: Performed By: #### I NFLUAB #### [facility] [address] [address] [address] Deepak Greenfield Calcium [Mass/Vol] 8.5 mg/dL Normal 8.5-10.1 [facility] Comment on above: Performed By: #### I NFLUAB #### [facility] [address] [address] [address] Deepak Greenfield Chloride [Moles/Vol] 104 mmol/L Normal 98-107 [facility] Comment on above: Performed By: #### I NFLUAB #### [facility] [address] [address] [address] Deepak Greenfield CO2 [Moles/Vol] 30.0 mmol/L Normal 21.0-32.0 [facility] Comment on above: Performed By: #### I NFLUAB #### [facility] [address] [address] [address] Deepak Greenfield Creatinine [Mass/Vol] 0.46 mg/dL Critically low 0.70-1.30 [facility] Comment on above: Performed By: #### I NFLUAB #### [facility] [address] [address] [address] Deepak Greenfield EGFR-AF BRITISH >60 Normal >=60 [facility] Comment on above: Performed By: #### I NFLUAB #### [facility] [address] [address] [address] Deepak Greenfield EGFR-NON AF BRITISH >60 Normal >=60 [facility] Comment on above: Performed By: #### I NFLUAB #### [facility] [address] [address] [address] Deepak Greenfield Glucose [Mass/Vol] 152 mg/dL Critically high 74-106 [facility] Comment on above: Performed By: #### I NFLUAB #### [facility] [address] [address] [address] Deepak Greenfield Potassium [Moles/Vol] 4.3 mmol/L Normal 3.5-5.1 [facility] Comment on above: Performed By: #### I NFLUAB #### [facility] [address] [address] [address] Deepak Greenfield Sodium [Moles/Vol] 138 mmol/L Normal 136-145 [facility] Comment on above: Performed By: #### I NFLUAB #### [facility] [address] [place] [address] Dr. Deepak Greenfield Urea nitrogen [Mass/Vol] 9.0 mg/dL Normal 7.0-18.0 [facility] Comment on above: Performed By: #### I NFLUAB #### [facility] [address] [place] [address] Dr. Deepak Greenfield Urea nitrogen/Creatinine [Mass ratio] 19.6 mg/mg Normal [facility] Comment on above: Performed By: #### I NFLUAB #### [facility] [address] [place] [address] Dr. Deepak Greenfield AMMONIAon 07-29-2022 Ammonia (P) [Moles/Vol] 69 umol/L Critically high 11-32 [facility] Comment on above: Performed By: #### A MM #### [facility] [address] [place] [address] Dr. Deepak Greenfield CBC AUTO DIFFon 07-29-2022 BASO # 0.0 103/ul Normal 0.0-0.1 [facility] Comment on above: Performed By: #### M G, CMP #### [facility] [address] [address] [address] Deepak Greenfield Basophils/100 WBC (Bld) 0.2 % Normal 0.2-2.0 [facility] Comment on above: Performed By: #### M G, CMP #### [facility] [address] [place] [address] Dr. Deepak Greenfiedl EO # 0.0 103/ul Normal 0.0-0.7 [facility] Comment on above: Performed By: #### M G, CMP #### [facility] [address] [place] [address] Dr. Deepak Greenfield Eosinophils/100 WBC (Bld) 0.0 % Critically low 0.9-7.0 [facility] Comment on above: Performed By: #### M G, CMP #### [facility] [address] [place] [address] Dr. Deepak Greenfield Erythrocyte distribution width (RBC) [Ratio] 13.2 % Normal 11.0-15.0 [facility] Comment on above: Performed By: #### M G, CMP #### [facility] [address] [place] [address] Dr. Deepak Greenfield Hematocrit (Bld) [Volume fraction] 33.1 % Critically low 42.0-54.0 [facility] Comment on above: Performed By: #### M G, CMP #### [facility] [address] [place] [address] Dr. Deepak Greenfield Hemoglobin (Bld) [Mass/Vol] 10.8 g/dL Critically low 14.0-18.0 [facility] Comment on above: Performed By: #### M G, CMP #### [facility] [address] [place] [address] Dr. Deepak Greenfield IG # 0.04 10e3/ul Critically high 0.00-0.03 [facility] Comment on above: Performed By: #### M G, CMP #### [facility] [address] [place] [address] Dr. Deepak Greenfield IG % 0.5 % Normal 0.0-0.5 [facility] Comment on above: Performed By: #### M G, CMP #### [facility] [address] [place] [address] Dr. Deepak Greenfield LYMPH # 1.1 103/ul Critically low 1.2-3.8 [facility] Comment on above: Performed By: #### M G, CMP #### [facility] [address] [place] [address] Dr. Deepak Greenfield Lymphocytes/100 WBC (Bld) 13.6 % Critically low 20.5-60.0 [facility] Comment on above: Performed By: #### M G, CMP #### [facility] [address] [place] [address] Dr. Deepak Greenfield MANUAL DIFF REQ NO Normal [facility] Comment on above: Performed By: #### M G, CMP #### [facility] [address] [place] [address] Dr. Deepak Greenfield MCH (RBC) [Entitic mass] 32.2 pg Normal 25.9-34.0 [facility] Comment on above: Performed By: #### M G, CMP #### [facility] [address] [place] [address] Dr. Deepak Greenfield MCHC (RBC) [Mass/Vol] 32.6 g/dL Normal 29.9-35.2 [facility] Comment on above: Performed By: #### Karishma G, CMP #### [facility] [address] [place] [address] Dr. Deepak Gerenfield MCV (RBC) [Entitic vol] 98.8 fL Critically high 80.0-94.0 [facility] Comment on above: Performed By: #### Karishma House, CMP #### [facility] [address] [place] [address] Dr. Deepak Greenfield MONO # 0.3 103/ul Normal 0.3-0.8 [facility] Comment on above: Performed By: #### M G, CMP #### [facility] [address] [place] [address] Dr. Deepak Greenfield Monocytes/100 WBC (Bld) 3.8 % Normal 1.7-12.0 [facility] Comment on above: Performed By: #### M G, CMP #### [facility] [address] [address] [address] Deepak Greenfield NEUT # 6.7 103/ul Critically high 1.4-6.[address] [facility] Comment on above: Performed By: #### M G, CMP #### [facility] [address] [place] [address] Dr. Deepak Greenfield Neutrophils/100 WBC (Bld) 81.9 % Critically high 43.0-75.0 [facility] Comment on above: Performed By: #### M G, CMP #### [facility] [address] [place] [address] Dr. Deepak Greenfield Platelet mean volume (Bld) [Entitic vol] 9.6 fL Normal 9.5-13.5 [facility] Comment on above: Performed By: #### M G, CMP #### [facility] [address] [place] [address] Dr. Deepak Greenfield PLT 257 103/ul Normal 150-450 [facility] Comment on above: Performed By: #### M G, CMP #### [facility] [address] [place] [address] Dr. Deepak Greenfield RBC 3.35 106/ul Critically low 4.70-6.[address] [facility] Comment on above: Performed By: #### M G, CMP #### [facility] [address] [place] [address] Dr. Deepak Greenfield WBC 8.2 103/ul Normal 4.0-11.0 [facility] Comment on above: Performed By: #### M G, CMP #### [facility] [address] [place] [address] Dr. Deepak Greenfield LACTATE/LACTIC ACIDon 2022 Lactate [Moles/Vol] 1.1 mmol/L Normal 0.4-2.0 [facility] Comment on above: Performed By: #### I NFLUAB #### [facility] [address] [place] [address] Dr. Deepak Greenfield PROF CHEM 8 (BAS METB)on Anion gap [Moles/Vol] 9.4 mmol/L Normal [facility] Comment on above: Performed By: #### I NFLUAB #### [facility] [address] [address] [address] Deepak Greenfield Calcium [Mass/Vol] 8.0 mg/dL Critically low 8.5-10.1 [facility] Comment on above: Performed By: #### I NFLUAB #### [facility] [address] [address] [address] Deepak Greenfield Chloride [Moles/Vol] 105 mmol/L Normal 98-107 [facility] Comment on above: Performed By: #### I NFLUAB #### [facility] [address] [address] [address] Deepak Greenfield CO2 [Moles/Vol] 30.7 mmol/L Normal 21.0-32.0 [facility] Comment on above: Performed By: #### I NFLUAB #### [facility] [address] [place] [address] Dr. Deepak Greenfield Creatinine [Mass/Vol] 0.66 mg/dL Critically low 0.70-1.30 [facility] Comment on above: Performed By: #### I NFLUAB #### [facility] [address] [place] [address] Dr. Deepak Greenfield EGFR-AF BRITISH >60 Normal >=60 [facility] Comment on above: Performed By: #### I NFLUAB #### [facility] [address] [address] [address] Deepak Greenfield EGFR-NON AF BRITISH >60 Normal >=60 [facility] Comment on above: Performed By: #### I NFLUAB #### [facility] [address] [place] [address] Dr. Deepak Greenfield Glucose [Mass/Vol] 177 mg/dL Critically high 74-106 [facility] Comment on above: Performed By: #### I NFLUAB #### [facility] [address] [place] [address] Dr. Deepak Greenfield Potassium [Moles/Vol] 4.1 mmol/L Normal 3.5-5.1 [facility] Comment on above: Performed By: #### I NFLUAB #### [facility] [address] [place] [address] Dr. Deepak Greenfield Sodium [Moles/Vol] 141 mmol/L Normal 136-145 [facility] Comment on above: Performed By: #### I NFLUAB #### [facility] [address] [place] [address] Dr. Deepak Greenfield Urea nitrogen [Mass/Vol] 9.0 mg/dL Normal 7.0-18.0 [facility] Comment on above: Performed By: #### I NFLUAB #### [facility] [address] [place] [address] Dr. Deepak Greenfield Urea nitrogen/Creatinine [Mass ratio] 13.6 mg/mg Normal [facility] Comment on above: Performed By: #### I NFLUAB #### [facility] [address] [place] [address] Dr. Deepak Greenfield AMMONIAon 07-28-2022 Ammonia (P) [Moles/Vol] 68 umol/L Critically high 11-32 [facility] Comment on above: Performed By: #### B MP #### [facility] [address] [place] [address] Dr. Deepak Greenfield CBC AUTO DIFFon 07-28-2022 BASO # 0.0 103/ul Normal 0.0-0.1 [facility] Comment on above: Performed By: #### C BC #### [facility] [address] [place] [address] Dr. Deepak Greenfield Basophils/100 WBC (Bld) 0.3 % Normal 0.2-2.0 [facility] Comment on above: Performed By: #### C BC #### [facility] [address] [place] [address] Dr. Deepak Greenfield EO # 0.0 103/ul Normal 0.0-0.7 [facility] Comment on above: Performed By: #### C BC #### [facility] [address] [place] [address] Dr. Deepak Greenfield Eosinophils/100 WBC (Bld) 0.0 % Critically low 0.9-7.0 [facility] Comment on above: Performed By: #### C BC #### [facility] [address] [place] [address] Dr. Deepak Greenfield Erythrocyte distribution width (RBC) [Ratio] 13.3 % Normal 11.0-15.0 [facility] Comment on above: Performed By: #### C BC #### [facility] [address] [place] [address] Dr. Deepak Greenfield Hematocrit (Bld) [Volume fraction] 37.0 % Critically low 42.0-54.0 [facility] Comment on above: Performed By: #### C BC #### [facility] [address] [place] [address] Dr. Deepak Greenfield Hemoglobin (Bld) [Mass/Vol] 12.3 g/dL Critically low 14.0-18.0 [facility] Comment on above: Performed By: #### C BC #### [facility] [address] [place] [address] Dr. Deepak Greenfield IG # 0.06 10e3/ul Critically high 0.00-0.03 [facility] Comment on above: Performed By: #### C BC #### [facility] [address] [place] [address] Dr. Deepak Greenfield IG % 0.5 % Normal 0.0-0.5 [facility] Comment on above: Performed By: #### C BC #### [facility] [address] [place] [address] Dr. Deepak Greenfield LYMPH # 2.9 103/ul Normal 1.2-3.8 [facility] Comment on above: Performed By: #### C BC #### [facility] [address] [place] [address] Dr. Deepak Greenfield Lymphocytes/100 WBC (Bld) 23.5 % Normal 20.5-60.0 [facility] Comment on above: Performed By: #### C BC #### [facility] [address] [place] [address] Dr. Deepak Greenfield MANUAL DIFF REQ NO Normal [facility] Comment on above: Performed By: #### C BC #### [facility] [address] [address] [address] Deepak Greenfield MCH (RBC) [Entitic mass] 32.4 pg Normal 25.9-34.0 [facility] Comment on above: Performed By: #### C BC #### [facility] [address] [address] [address] Deepak Greenfield MCHC (RBC) [Mass/Vol] 33.2 g/dL Normal 29.9-35.2 [facility] Comment on above: Performed By: #### C BC #### [facility] [address] [address] [address] Deepak Greenfield MCV (RBC) [Entitic vol] 97.4 fL Critically high 80.0-94.0 [facility] Comment on above: Performed By: #### C BC #### [facility] [address] [place] [address] Dr. Deepak Greenfield MONO # 1.0 103/ul Critically high 0.3-0.8 [facility] Comment on above: Performed By: #### C BC #### [facility] [address] [place] [address] Dr. Deepak Greenfield Monocytes/100 WBC (Bld) 8.0 % Normal 1.7-12.0 [facility] Comment on above: Performed By: #### C BC #### [facility] [address] [place] [address] Dr. Deepak Greenfield NEUT # 8.3 103/ul Critically high 1.4-6.5 [facility] Comment on above: Performed By: #### C BC #### [facility] [address] [place] [address] Dr. Deepak Greenfield Neutrophils/100 WBC (Bld) 67.7 % Normal 43.0-75.0 [facility] Comment on above: Performed By: #### C BC #### [facility] [address] [place] [address] Dr. Deepak Greenfield Platelet mean volume (Bld) [Entitic vol] 9.7 fL Normal 9.5-13.5 [facility] Comment on above: Performed By: #### C BC #### [facility] [address] [place] [address] Dr. Deepak Greenfield PLT 325 103/ul Normal 150-450 [facility] Comment on above: Performed By: #### C BC #### [facility] [address] [place] [address] Dr. Deepak Greenfield RBC 3.80 106/ul Critically low 4.70-6.10 [facility] Comment on above: Performed By: #### C BC #### [facility] [address] [place] [address] Dr. Deepak Greenfield WBC 12.2 103/ul Critically high 4.0-11.0 [facility] Comment on above: Performed By: #### C BC #### [facility] [address] [place] [address] Dr. Deepak Greenfield CULTURE BLOODon 07-28-2022 Microscopic examination of blood, culture Culture Observations: NO GROWTH AT 5 DAYS. Normal [facility] Comment on above: Performed By: #### B [id number] #### [facility] [address] [place] [address] Dr. Deepak Greenfield Microscopic examination of blood, culture Culture Observations: NO GROWTH AT 5 DAYS. Normal [facility] Comment on above: Performed By: #### C BC #### [facility] [address] [place] [address] Dr. Deepak Greenfield LACTATE/LACTIC ACIDon 2022 Lactate [Moles/Vol] 2.5 mmol/L Critically high 0.4-2.0 [facility] Comment on above: Performed By: #### C VDTBH #### [facility] [address] [place] [address] Dr. Deepak Greenfield PROF 14(COMP METB)on 023 Albumin [Mass/Vol] 3.1 g/dL Critically low 3.4-5.0 [facility] Comment on above: Performed By: #### C BC #### [facility] [address] [place] [address] Dr. Deepak Greenfield Albumin/Globulin [Mass ratio] 0.7 {ratio} Normal [facility] Comment on above: Performed By: #### C BC #### [facility] [address] [place] [address] Dr. Deepak Greenfield ALP [Catalytic activity/Vol] 51 U/L Normal 46-116 [facility] Comment on above: Performed By: #### C BC #### [facility] [address] [place] [address] Dr. Deepak Greenfield ALT [Catalytic activity/Vol] 106 U/L Critically high 16-63 [facility] Comment on above: Performed By: #### C BC #### [facility] [address] [place] [address] Dr. Deepak Greenfield Anion gap [Moles/Vol] 14.2 mmol/L Normal [facility] Comment on above: Performed By: #### C BC #### [facility] [address] [place] [address] Dr. Deepak Greenfield AST [Catalytic activity/Vol] 81 U/L Critically high 15-37 [facility] Comment on above: Performed By: #### C BC #### [facility] [address] [place] [address] Dr. Deepak Greenfield Bilirubin [Mass/Vol] 0.4 mg/dL Normal 0.2-1.0 [facility] Comment on above: Performed By: #### C BC #### [facility] [address] [place] [address] Dr. Deepak Greenfield Calcium [Mass/Vol] 8.9 mg/dL Normal 8.5-10.1 [facility] Comment on above: Performed By: #### C BC #### [facility] [address] [place] [address] Dr. Deepak Greenfield Chloride [Moles/Vol] 105 mmol/L Normal 98-107 [facility] Comment on above: Performed By: #### C BC #### [facility] [address] [place] [address] Dr. Deepak Greenfield CO2 [Moles/Vol] 27.9 mmol/L Normal 21.0-32.0 [facility] Comment on above: Performed By: #### C BC #### [facility] [address] [address] [address] Deepak Greenfield Creatinine [Mass/Vol] 0.77 mg/dL Normal 0.70-1.30 [facility] Comment on above: Performed By: #### C BC #### [facility] [address] [address] [address] Deepak Greenfield EGFR-AF BRITISH >60 Normal >=60 [facility] Comment on above: Performed By: #### C BC #### [facility] [address] [address] [address] Deepak Greenfield EGFR-NON AF BRITISH >60 Normal >=60 [facility] Comment on above: Performed By: #### C BC #### [facility] [address] [place] [address] Dr. Deepak Greenfield Globulin (S) [Mass/Vol] 4.3 g/dL Normal [facility] Comment on above: Performed By: #### C BC #### [facility] [address] [place] [address] Dr. Deepak Greenfield Glucose [Mass/Vol] 162 mg/dL Critically high 74-106 [facility] Comment on above: Performed By: #### C BC #### [facility] [address] [place] [address] Dr. Deepak Greenfield Potassium [Moles/Vol] 4.1 mmol/L Normal 3.5-5.1 [facility] Comment on above: Performed By: #### C BC #### [facility] [address] [place] [address] Dr. Deepak Greenfield Protein [Mass/Vol] 7.4 g/dL Normal 6.4-8.[address] [facility] Comment on above: Performed By: #### C BC #### [facility] [address] [place] [address] Dr. Deepak Greenfield Sodium [Moles/Vol] 143 mmol/L Normal 136-[address] [facility] Comment on above: Performed By: #### C BC #### [facility] [address] [place] [address] Dr. Deepak Greenfield Urea nitrogen [Mass/Vol] 12.0 mg/dL Normal 7.0-18.0 [facility] Comment on above: Performed By: #### C BC #### [facility] [address] [place] [address] Dr. Deepak Greenfield Urea nitrogen/Creatinine [Mass ratio] 15.6 mg/mg Normal [facility] Comment on above: Performed By: #### C BC #### [facility] [address] [place] [address] Dr. Deepak Greenfield RESPIRATORY PANEL PLUSon Adenovirus Not detected Normal NOT DETECTED [facility] Comment on above: Performed By: #### B MP #### [facility] [address] [place] [address] Dr. Deepak Murphy. Parapertusis Not detected Normal NOT DETECTED [facility] Comment on above: Performed By: #### B MP #### [facility] [address] [place] [address] Dr. Deepak Murphy. Pertussis Not detected Normal NOT DETECTED [facility] Comment on above: Performed By: #### B MP #### [facility] [address] [place] [address] Dr. Deepak Greenfield Chlamydia Pneumoniae Not detected Normal NOT DETECTED [facility] Comment on above: Performed By: #### B MP #### [facility] [address] [place] [address] Dr. Deepak Greenfield Coronavirus 229E Not detected Normal NOT DETECTED [facility] Comment on above: Performed By: #### B MP #### [facility] [address] [place] [address] Dr. Deepak Greenfield Coronavirus HKU1 Not detected Normal NOT DETECTED [facility] Comment on above: Performed By: #### B MP #### [facility] [address] [place] [address] Dr. Deepak Greenfield Coronavirus NL63 Not detected Normal NOT DETECTED [facility] Comment on above: Performed By: #### B MP #### [facility] [address] [address] [address] Deepak Greenfield Coronavirus OC43 Not detected Normal NOT DETECTED [facility] Comment on above: Performed By: #### B MP #### [facility] [address] [address] [address] Deepak Greenfield Influenza A H1 Not detected Normal NOT DETECTED [facility] Comment on above: Performed By: #### B MP #### [facility] [address] [address] [address] Deepak Greenfield Influenza A H1 2009 Not detected Normal NOT DETECTED [facility] Comment on above: Performed By: #### B MP #### [facility] [address] [address] [address] Deepak Greenfield Influenza A H3 Not detected Normal NOT DETECTED [facility] Comment on above: Performed By: #### B MP #### [facility] [address] [place] [address] Dr. Deepak Greenfield Influenza B Not detected Normal NOT DETECTED [facility] Comment on above: Performed By: #### B MP #### [facility] [address] [address] [address] Deepak Greenfield Metapneumovirus Detected Abnormal NOT DETECTED [facility] Comment on above: Performed By: #### B MP #### [facility] [address] [place] [address] Dr. Deepak Greenfield Mycoplas. Pneumoniae Not detected Normal NOT DETECTED [facility] Comment on above: Performed By: #### B MP #### [facility] [address] [address] [address] Deepak Greenfield Parainfluenza 1 Not detected Normal NOT DETECTED [facility] Comment on above: Performed By: #### B MP #### [facility] [address] [address] [address] Deepak Greenfield Parainfluenza 2 Not detected Normal NOT DETECTED [facility] Comment on above: Performed By: #### B MP #### [facility] [address] [address] [address] Deepak Greenfield Parainfluenza 3 Not detected Normal NOT DETECTED [facility] Comment on above: Performed By: #### B MP #### [facility] [address] [address] [address] Deepak Greenfield Parainfluenza 4 Not detected Normal NOT DETECTED [facility] Comment on above: Performed By: #### B MP #### [facility] [address] [place] [address] Dr. Deepak Greenfield Rhino/Enterovirus Not detected Normal NOT DETECTED [facility] Comment on above: Performed By: #### B MP #### [facility] [address] [place] [address] Dr. Deepak Greenfield RP2 Header 1 RESPIRATORY PANEL: VIRUSES Normal [facility] Comment on above: Performed By: #### B MP #### [facility] [address] [place] [address] Dr. Deepak Greenfield RP2 Header 2 RESPIRATORY PANEL: BACTERIA Normal [facility] Comment on above: Performed By: #### B MP #### [facility] [address] [place] [address] Dr. Deepak Greenfield RSV Not detected Normal NOT DETECTED [facility] Comment on above: Performed By: #### B MP #### [facility] [address] [place] [address] Dr. Deepak Greenfield SARS-CoV-2 (COVID-19) RNA CINDY+probe Ql (Unsp spec) Not detected Normal NOT DETECTED [facility] Comment on above: Performed By: #### B MP #### [facility] [address] [place] [address] Dr. Deepak Greenfield XR CHEST 1 Von [...] Akua PEREZ Date: 2022-07-28 20:23 Normal [facility] AMMONIAon 07-27-2022 Ammonia (P) [Moles/Vol] 76 umol/L Critically high 11-32 [facility] Comment on above: Performed By: #### M G, CMP #### [facility] [address] [place] [address] Dr. Deepak Greenfield CBC W MANUAL DIFFon 07-28-19 23 ATYPICAL LYMPH # Normal [facility] Comment on above: Performed By: #### M G, CMP #### [facility] [address] [place] [address] Dr. Deepak Greenfield ATYPICAL LYMPH % Normal [facility] Comment on above: Performed By: #### M G, CMP #### [facility] [address] [place] [address] Dr. Deepak Greenfield BAND # 0.4 103/ul Critically high 0.0-0.[address] [facility] Comment on above: Performed By: #### M G, CMP #### [facility] [address] [place] [address] Dr. Deepak Greenfield BAND % 4 % Normal 0-5 [facility] Comment on above: Performed By: #### M G, CMP #### [facility] [address] [place] [address] Dr. Deepak Greenfield BASOM # 0.00 103/ul Normal 0.00-0.10 [facility] Comment on above: Performed By: #### M G, CMP #### [facility] [address] [place] [address] Dr. Deepak Greenfield BASOM % 0.0 % Critically low 0.2-2.0 [facility] Comment on above: Performed By: #### M G, CMP #### [facility] [address] [place] [address] Dr. Deepak Greenfield BLAST # Normal [facility] Comment on above: Performed By: #### M G, CMP #### [facility] [address] [address] [address] Deepak Greenfield BLAST % Normal [facility] Comment on above: Performed By: #### M G, CMP #### [facility] [address] [address] [address] Deepak Greenfield CORRECTED WBC Normal 4.0-11.0 [facility] Comment on above: Performed By: #### M G, CMP #### [facility] [address] [address] [address] Deepak Greenfield EOS # 0.00 103/ul Normal 0.00-0.70 [facility] Comment on above: Performed By: #### M G, CMP #### [facility] [address] [place] [address] Dr. Deepak Greenfield EOS% 0.0 % Critically low 0.9-7.0 [facility] Comment on above: Performed By: #### M G, CMP #### [facility] [address] [place] [address] Dr. Deepak Greenfield HCT 29.6 % Critically low 42.0-54.0 [facility] Comment on above: Performed By: #### M G, CMP #### [facility] [address] [place] [address] Dr. Deepak Greenfield HGB 10.4 g/dl Critically low 14.0-18.0 [facility] Comment on above: Performed By: #### M G, CMP #### [facility] [address] [place] [address] Dr. Deepak Greenfield LYMPHM # 0.71 103/ul Critically low 1.20-3.[address] [facility] Comment on above: Performed By: #### M G, CMP #### [facility] [address] [address] [address] Deepak Greenfield LYMPHM% 8.0 % Critically low 20.5-60.0 [facility] Comment on above: Performed By: #### M G, CMP #### [facility] [address] [place] [address] Dr. Deepak Greenfield MCH 33.0 pg Normal 25.9-34.0 [facility] Comment on above: Performed By: #### M G, CMP #### [facility] [address] [place] [address] Dr. Deepak Greenfield MCHC 35.1 g/dl Normal 29.9-35.2 [facility] Comment on above: Performed By: #### M G, CMP #### [facility] [address] [place] [address] Dr. Deepak Greenfield MCV 94.0 fL Normal 80.0-94.0 [facility] Comment on above: Performed By: #### M G, CMP #### [facility] [address] [place] [address] Dr. Deepak Greenfield METAMYELOCYTE # Normal [facility] Comment on above: Performed By: #### M G, CMP #### [facility] [address] [place] [address] Dr. Deepak Greenfield METAMYELOCYTE % Normal [facility] Comment on above: Performed By: #### M G, CMP #### [facility] [address] [place] [address] Dr. Deepak Greenfield MONOM# 0.71 103/ul Normal 0.30-0.80 [facility] Comment on above: Performed By: #### M G, CMP #### [facility] [address] [place] [address] Dr. Deepak Greenfield MONOM% 8.0 % Normal 1.7-12.0 [facility] Comment on above: Performed By: #### M G, CMP #### [facility] [address] [place] [address] Dr. Deepak Greenfield MPV 9.6 fL Normal 9.5-13.5 [facility] Comment on above: Performed By: #### M G, CMP #### [facility] [address] [place] [address] Dr. Deepak Greenfield MYELOCYTE # Normal [facility] Comment on above: Performed By: #### M G, CMP #### [facility] [address] [address] [address] Deepak Greenfield MYELOCYTE % Normal [facility] Comment on above: Performed By: #### M G, CMP #### [facility] [address] [address] [address] Deepak Greenfield NRBC Normal [facility] Comment on above: Performed By: #### M G, CMP #### [facility] [address] [address] [address] Deepak Greenfield PLT 267 103/ul Normal 150-450 [facility] Comment on above: Performed By: #### M G, CMP #### [facility] [address] [place] [address] Dr. Deepak Greenfield RBC 3.15 106/ul Critically low 4.70-6.10 [facility] Comment on above: Performed By: #### M G, CMP #### [facility] [address] [place] [address] Dr. Deepak Greenfield RDW 12.9 % Normal 11.0-15.0 [facility] Comment on above: Performed By: #### M G, CMP #### [facility] [address] [place] [address] Dr. Deepak Greenfield SEG # 7.12 103/ul Critically high 1.40-6.50 [facility] Comment on above: Performed By: #### M G, CMP #### [facility] [address] [place] [address] Dr. Deepak Greenfield SEG % 80.0 % Critically high 43.0-75.0 [facility] Comment on above: Performed By: #### M G, CMP #### [facility] Laboratory [address] [place] [address] Dr. Deepak Greenfield WBC 8.9 103/ul Normal 4.0-11.0 [facility] Comment on above: Performed By: #### M G, CMP #### [facility] Laboratory [address] [place] [address] Dr. Deepak Greenfield PROF CHEM 8 (BAS METB)on Anion gap [Moles/Vol] 12.4 mmol/L Normal [facility] Comment on above: Performed By: #### C BC #### [facility] Laboratory [address] [place] [address] Dr. Deepak Greenfield Calcium [Mass/Vol] 8.2 mg/dL Critically low 8.5-10.1 [facility] Comment on above: Performed By: #### C BC #### [facility] [address] [place] [address] Dr. Deepak Greenfield Chloride [Moles/Vol] 101 mmol/L Normal 98-107 [facility] Comment on above: Performed By: #### C BC #### [facility] [address] [place] [address] Dr. Deepak Greenfield CO2 [Moles/Vol] 25.0 mmol/L Normal 21.0-32.0 [facility] Comment on above: Performed By: #### C BC #### [facility] [address] [place] [address] Dr. Deepak Greenfield Creatinine [Mass/Vol] 0.53 mg/dL Critically low 0.70-1.30 [facility] Comment on above: Performed By: #### C BC #### [facility] [address] [place] [address] Dr. Deepak Greenfield EGFR-AF BRITISH >60 Normal >=60 [facility] Comment on above: Performed By: #### C BC #### [facility] [address] [place] [address] Dr. Deepak Greenfield EGFR-NON AF BRITISH >60 Normal >=60 [facility] Comment on above: Performed By: #### C BC #### [facility] [address] [place] [address] Dr. Deepak Greenfield Glucose [Mass/Vol] 161 mg/dL Critically high 74-106 [facility] Comment on above: Performed By: #### C BC #### [facility] [address] [place] [address] Dr. Deepak Greenfield Potassium [Moles/Vol] 4.4 mmol/L Normal 3.5-5.1 [facility] Comment on above: Performed By: #### C BC #### [facility] [address] [address] [address] Deepak Greenfield Sodium [Moles/Vol] 134 mmol/L Critically low 136-145 [facility] Comment on above: Performed By: #### C BC #### [facility] [address] [place] [address] Dr. Deepak Grenefield Urea nitrogen [Mass/Vol] 13.0 mg/dL Normal 7.0-18.0 [facility] Comment on above: Performed By: #### C BC #### [facility] [address] [place] [address] Dr. Deepak Greenfield Urea nitrogen/Creatinine [Mass ratio] 24.5 mg/mg Normal [facility] Comment on above: Performed By: #### C BC #### [facility] [address] [place] [address] Dr. Deepak Greenfield AMMONIAon 07-26-2022 Ammonia (P) [Moles/Vol] 56 umol/L Critically high 11-32 [facility] Comment on above: Performed By: #### M G, CMP #### [facility] [address] [place] [address] Dr. Deepak Greenfield CARDIAC BEATRIS ADMITon 023 CK [Catalytic activity/Vol] 83 U/L Normal 39-308 [facility] Comment on above: Performed By: #### B MP #### [facility] [address] [place] [address] Dr. Deepak Greenfield CK.MB [Mass/Vol] 0.86 ng/mL Normal <=3.60 [facility] Comment on above: Performed By: #### B MP #### [facility] [address] [place] [address] Dr. Deepak Greenfield HSTROP 7.4 pg/mL Normal 4.0-76.1 [facility] Comment on above: Result Comment: CUT- OFF POINTS HAVE BEEN ESTABLISHED BASED ON THE FOURTH UNIVERSAL DEFINITIONS OF MYOCARDIAL INFARCTION. THE UPPER REFERENCE LIMIT (URL) OF TROPONIN, DEFINED THE 99TH PERCENTILE OF cTnI DISTRIBUTION IN A REFERENCE POPULATION, HAS BEEN CONFIRMED THE DECISION THRESHOLD FOR NC DIAGNOSIS. Performed By: #### B MP #### [facility] [address] [place] [address] Dr. Deepak Greenfield VALE 46 ng/mL Normal 16-96 [facility] Comment on above: Performed By: #### B MP #### [facility] [address] [place] [address] Dr. Deepak Greenfield CBC AUTO DIFFon 07-26-2022 BASO # 0.1 103/ul Normal 0.0-0.1 [facility] Comment on above: Performed By: #### M G, CMP #### [facility] [address] [place] [address] Dr. Deepak Greenfield Basophils/100 WBC (Bld) 0.5 % Normal 0.2-2.0 [facility] Comment on above: Performed By: #### M G, CMP #### [facility] [address] [place] [address] Dr. Deepak Greenfield EO # 0.2 103/ul Normal 0.0-0.7 [facility] Comment on above: Performed By: #### M G, CMP #### [facility] [address] [place] [address] Dr. Deepak Greenfield Eosinophils/100 WBC (Bld) 2.1 % Normal 0.9-7.0 [facility] Comment on above: Performed By: #### M G, CMP #### [facility] [address] [place] [address] Dr. Deepak Greenfield Erythrocyte distribution width (RBC) [Ratio] 13.2 % Normal 11.0-15.0 [facility] Comment on above: Performed By: #### M G, CMP #### [facility] [address] [place] [address] Dr. Deepak Greenfield Hematocrit (Bld) [Volume fraction] 36.7 % Critically low 42.0-54.0 [facility] Comment on above: Performed By: #### M G, CMP #### [facility] [address] [place] [address] Dr. Deepak Greenfield Hemoglobin (Bld) [Mass/Vol] 12.4 g/dL Critically low 14.0-18.0 [facility] Comment on above: Performed By: #### M G, CMP #### [facility] [address] [place] [address] Dr. Deepak Greenfield IG # 0.04 10e3/ul Critically high 0.00-0.03 [facility] Comment on above: Performed By: #### M G, CMP #### [facility] [address] [place] [address] Dr. Deepak Greenfield IG % 0.4 % Normal 0.0-0.5 [facility] Comment on above: Performed By: #### M G, CMP #### [facility] [address] [place] [address] Dr. Deepak Greenfield LYMPH # 1.7 103/ul Normal 1.2-3.8 [facility] Comment on above: Performed By: #### M G, CMP #### [facility] [address] [place] [address] Dr. Deepak Greenfield Lymphocytes/100 WBC (Bld) 15.6 % Critically low 20.5-60.0 [facility] Comment on above: Performed By: #### M G, CMP #### [facility] [address] [place] [address] Dr. Deepak Greenfield MANUAL DIFF REQ NO Normal [facility] Comment on above: Performed By: #### M G, CMP #### [facility] [address] [place] [address] Dr. Deepak Greenfield MCH (RBC) [Entitic mass] 32.5 pg Normal 25.9-34.0 [facility] Comment on above: Performed By: #### M G, CMP #### [facility] [address] [place] [address] Dr. Deepak Greenfield MCHC (RBC) [Mass/Vol] 33.8 g/dL Normal 29.9-35.2 [facility] Comment on above: Performed By: #### M G, CMP #### [facility] [address] [place] [address] Dr. Deepak Greenfield MCV (RBC) [Entitic vol] 96.3 fL Critically high 80.0-94.0 [facility] Comment on above: Performed By: #### M G, CMP #### [facility] [address] [place] [address] Dr. Deepak Greenfield MONO # 1.4 103/ul Critically high 0.3-0.[address] [facility] Comment on above: Performed By: #### M G, CMP #### [facility] [address] [place] [address] Dr. Deepak Greenfield Monocytes/100 WBC (Bld) 12.8 % Critically high 1.7-12.0 [facility] Comment on above: Performed By: #### M G, CMP #### [facility] [address] [place] [address] Dr. Deepak Greenfield NEUT # 7.4 103/ul Critically high 1.4-6.[address] [facility] Comment on above: Performed By: #### M G, CMP #### [facility] [address] [place] [address] Dr. Deepak Greenfield Neutrophils/100 WBC (Bld) 68.6 % Normal 43.0-75.0 [facility] Comment on above: Performed By: #### M G, CMP #### [facility] [address] [place] [address] Dr. Deepak Greenfield Platelet mean volume (Bld) [Entitic vol] 9.5 fL Normal 9.5-13.5 [facility] Comment on above: Performed By: #### M G, CMP #### [facility] [address] [place] [address] Dr. Deepak Greenfield PLT 314 103/ul Normal 150-450 [facility] Comment on above: Performed By: #### M G, CMP #### [facility] [address] [place] [address] Dr. Deepak Greenfield RBC 3.81 106/ul Critically low 4.70-6.[address] [facility] Comment on above: Performed By: #### M G, CMP #### [facility] [address] [place] [address] Dr. Deepak Greenfield WBC 10.8 103/ul Normal 4.0-11.0 [facility] Comment on above: Performed By: #### M G, CMP #### [facility] [address] [address] [address] Deepak Greenfield [facility]on SARS-CoV-2 (COVID-19) RNA CINDY+probe Ql (Unsp spec) Not detected Normal NOT DETECTED [facility] Comment on above: Result Comment: When diagnostic [...] for this test is supported by the [place] of [employer] and Human Service's declaration that [...] used). Performed By: #### C VDTBH #### [facility] [address] [place] [address] Dr. Deepak Greenfield INFLUENZA A AND B AGon 07-26 INFLUANEGH SEE BELOW Normal [facility] Comment on above: Result Comment: Nega tive for Flu A protein angiten. Infection due to Flu A cannot be ruled out. Flu A angiten in the sample may be below the detection limit of the test. Performed By: #### I NFLUAB #### [facility] [address] [place] [address] Dr. Deepak Greenfield INFLUBNEGH SEE BELOW Normal [facility] Comment on above: Result Comment: Nega tive for Flu B protein antigen. Infection due to Flu B cannot be ruled out. Flu B antigen in the sample may be below the detection limit of the test. Performed By: #### I NFLUAB #### [facility] [address] [place] [address] Dr. Deepak Greenfield INFLUENZA A AG Negative Normal NEGATIVE SEE COMMENT [facility] Comment on above: Performed By: #### I NFLUAB #### [facility] [address] [place] [address] Dr. Deepak Greenfield INFLUENZA B AG Negative Normal NEGATIVE SEE COMMENT [facility] Comment on above: Performed By: #### I NFLUAB #### [facility] [address] [place] [address] Dr. Deepak Greenfield LACTATE/LACTIC ACIDon 2022 Lactate [Moles/Vol] 1.2 mmol/L Normal 0.4-2.0 [facility] Comment on above: Performed By: #### M G, CMP #### [facility] [address] [place] [address] Dr. Deepak Greenfield PROF 14(COMP METB)on 023 Albumin [Mass/Vol] 3.3 g/dL Critically low 3.4-5.0 [facility] Comment on above: Performed By: #### B MP #### [facility] [address] [place] [address] Dr. Deepak Greenfield Albumin/Globulin [Mass ratio] 0.8 {ratio} Normal [facility] Comment on above: Performed By: #### B MP #### [facility] [address] [place] [address] Dr. Deepak Greenfield ALP [Catalytic activity/Vol] 45 U/L Critically low 46-116 [facility] Comment on above: Performed By: #### B MP #### [facility] [address] [place] [address] Dr. Deepak Greenfield ALT [Catalytic activity/Vol] 114 U/L Critically high 16-63 [facility] Comment on above: Performed By: #### B MP #### [facility] [address] [place] [address] Dr. Deepak Greenfield Anion gap [Moles/Vol] 14.5 mmol/L Normal [facility] Comment on above: Performed By: #### B MP #### [facility] [address] [address] [address] Deepak Greenfield AST [Catalytic activity/Vol] 71 U/L Critically high 15-37 [facility] Comment on above: Performed By: #### B MP #### [facility] [address] [address] [address] Deepak Greenfield Bilirubin [Mass/Vol] 0.7 mg/dL Normal 0.2-1.0 [facility] Comment on above: Performed By: #### B MP #### [facility] [address] [address] [address] Deepak Greenfield Calcium [Mass/Vol] 9.1 mg/dL Normal 8.5-10.1 [facility] Comment on above: Performed By: #### B MP #### [facility] [address] [address] [address] Deepak Greenfield Chloride [Moles/Vol] 98 mmol/L Normal 98-107 [facility] Comment on above: Performed By: #### B MP #### [facility] [address] [address] [address] Deepak Greenfield CO2 [Moles/Vol] 27.4 mmol/L Normal 21.0-32.0 [facility] Comment on above: Performed By: #### B MP #### [facility] [address] [address] [address] Deepak Greenfield Creatinine [Mass/Vol] 0.65 mg/dL Critically low 0.70-1.30 [facility] Comment on above: Performed By: #### B MP #### [facility] [address] [address] [address] Deepak Greenfield EGFR-AF BRITISH >60 Normal >=60 [facility] Comment on above: Performed By: #### B MP #### [facility] [id number] Deepak Greenfield EGFR-NON AF BRITISH >60 Normal >=60 [facility] Comment on above: Performed By: #### B MP #### [facility] [address] [address] [address] Deepak Greenfield Globulin (S) [Mass/Vol] 4.2 g/dL Normal [facility] Comment on above: Performed By: #### B MP #### [facility] [address] [place] [address] Dr. Deepak Greenfield Glucose [Mass/Vol] 105 mg/dL Normal 74-[address] [facility] Comment on above: Performed By: #### B MP #### [facility] [address] [place] [address] Dr. Deepak Greenfield Potassium [Moles/Vol] 3.9 mmol/L Normal 3.5-5.1 [facility] Comment on above: Performed By: #### B MP #### [facility] [address] [place] [address] Dr. Deepak Greenfield Protein [Mass/Vol] 7.5 g/dL Normal 6.4-8.[address] [facility] Comment on above: Performed By: #### B MP #### [facility] [address] [place] [address] Dr. Deepak Greenfield Sodium [Moles/Vol] 136 mmol/L Normal 136-[address] [facility] Comment on above: Performed By: #### B MP #### [facility] [address] [place] [address] Dr. Deepak Greenfield Urea nitrogen [Mass/Vol] 13.0 mg/dL Normal 7.0-18.0 [facility] Comment on above: Performed By: #### B MP #### [facility] [address] [place] [address] Dr. Deepak Greenfield Urea nitrogen/Creatinine [Mass ratio] 20.0 mg/mg Normal [facility] Comment on above: Performed By: #### B MP #### [facility] [address] [place] [address] Dr. Deepak Greenfield XR CHEST 1 Von [...] by: ANICETO GARCIA Date: 2022-07-26 12:27 Normal [facility] Consent for Treatmenton -0 Consent for Treatment [id number] .[id number]:127 Normal [facility] Physician Orderon 07-23-2022 Physician Order [id number]# 1.00CD:127 Normal [facility] XR Adult Swallowing Function w/ Videoon 07-23-2022 [...] mGy = 11.70 DAP = 270.92 Normal [facility] AMMONIAon 06-03-2022 Ammonia (P) [Moles/Vol] 112 umol/L Critically high 11-32 [facility] Comment on above: Performed By: #### A MM #### [facility] [address] [place] [address] Dr. Deepak Greenfield DEPAKENE/ VALPROIC ACIDon DEPAKENE 94.0 ug/ml Normal 50.0-100.0 [facility] Comment on above: Performed By: #### C BC #### [facility] [address] [place] [address] Dr. Deepak Greenfield LIVER PROFILEon 06-03-2022 Albumin [Mass/Vol] 3.6 g/dL Normal 3.4-5.0 [facility] Comment on above: Performed By: #### C BC #### [facility] [address] [place] [address] Dr. Deepak Greenfield Albumin/Globulin [Mass ratio] 0.9 {ratio} Normal [facility] Comment on above: Performed By: #### C BC #### [facility] [address] [place] [address] Dr. Deepak Greenfield ALP [Catalytic activity/Vol] 55 U/L Normal 46-116 [facility] Comment on above: Performed By: #### C BC #### [facility] [address] [place] [address] Dr. Deepak Greenfield ALT [Catalytic activity/Vol] 76 U/L Critically high 16-63 [facility] Comment on above: Performed By: #### C BC #### [facility] [address] [place] [address] Dr. Deepak Greenfield AST [Catalytic activity/Vol] 51 U/L Critically high 15-37 [facility] Comment on above: Performed By: #### C BC #### [facility] [address] [place] [address] Dr. Deepak Greenfield BILI, CONJUGATED 0.1 mg/dL Normal 0.0-0.2 [facility] Comment on above: Performed By: #### C BC #### [facility] [address] [place] [address] Dr. Deepak Greenfield Bilirubin [Mass/Vol] 0.4 mg/dL Normal 0.2-1.0 [facility] Comment on above: Performed By: #### C BC #### [facility] [address] [place] [address] Dr. Deepak Greenfield Globulin (S) [Mass/Vol] 4.1 g/dL Normal [facility] Comment on above: Performed By: #### C BC #### [facility] [address] [place] [address] Dr. Deepak Greenfield Protein [Mass/Vol] 7.7 g/dL Normal 6.4-8.2 [facility] Comment on above: Performed By: #### C BC #### [facility] [address] [place] [address] Dr. Deepak Greenfield AMMONIAon 04-22-2022 Ammonia (P) [Moles/Vol] 108 umol/L Critically high 11-32 [facility] Comment on above: Performed By: #### B MP #### [facility] [address] [place] [address] Dr. Deepak Greenfield CBC AUTO DIFFon 04-22-2022 BASO # 0.0 103/ul Normal 0.0-0.1 [facility] Comment on above: Performed By: #### C BC #### [facility] [address] [place] [address] Dr. Deepak Greenfield Basophils/100 WBC (Bld) 0.5 % Normal 0.2-2.0 [facility] Comment on above: Performed By: #### C BC #### [facility] [address] [place] [address] Dr. Deepak Greenfield EO # 0.1 103/ul Normal 0.0-0.7 [facility] Comment on above: Performed By: #### C BC #### [facility] [address] [place] [address] Dr. Deepak Greenfield Eosinophils/100 WBC (Bld) 1.4 % Normal 0.9-7.0 [facility] Comment on above: Performed By: #### C BC #### [facility] [address] [place] [address] Dr. Deepak Greenfield Erythrocyte distribution width (RBC) [Ratio] 14.2 % Normal 11.0-15.0 [facility] Comment on above: Performed By: #### C BC #### [facility] [address] [place] [address] Dr. Deepak Greenfield Hematocrit (Bld) [Volume fraction] 37.0 % Critically low 42.0-54.0 [facility] Comment on above: Performed By: #### C BC #### [facility] [address] [place] [address] Dr. Deepak Greenfield Hemoglobin (Bld) [Mass/Vol] 12.3 g/dL Critically low 14.0-18.0 [facility] Comment on above: Performed By: #### C BC #### [facility] [address] [place] [address] Dr. Deepak Greenfield IG # 0.00 10e3/ul Normal 0.00-0.03 [facility] Comment on above: Performed By: #### C BC #### [facility] [address] [place] [address] Dr. Deepak Greenfield IG % 0.0 % Normal 0.0-0.5 [facility] Comment on above: Performed By: #### C BC #### [facility] [address] [place] [address] Dr. Deepak Greenfield LYMPH # 3.3 103/ul Normal 1.2-3.8 [facility] Comment on above: Performed By: #### C BC #### [facility] [address] [place] [address] Dr. Deepak Greenfield Lymphocytes/100 WBC (Bld) 51.5 % Normal 20.5-60.0 [facility] Comment on above: Performed By: #### C BC #### [facility] [address] [place] [address] Dr. Deepak Greenfield MANUAL DIFF REQ NO Normal [facility] Comment on above: Performed By: #### C BC #### [facility] [address] [place] [address] Dr. Deepak Greenfield MCH (RBC) [Entitic mass] 32.2 pg Normal 25.9-34.0 [facility] Comment on above: Performed By: #### C BC #### [facility] [address] [place] [address] Dr. Deepak Greenfield MCHC (RBC) [Mass/Vol] 33.2 g/dL Normal 29.9-35.2 [facility] Comment on above: Performed By: #### C BC #### [facility] [address] [place] [address] Dr. Deepak Greenfield MCV (RBC) [Entitic vol] 96.9 fL Critically high 80.0-94.0 [facility] Comment on above: Performed By: #### C BC #### [facility] [address] [place] [address] Dr. Deepak Greenfield MONO # 0.6 103/ul Normal 0.3-0.8 [facility] Comment on above: Performed By: #### C BC #### [facility] [address] [place] [address] Dr. Deepak Greenfield Monocytes/100 WBC (Bld) 9.7 % Normal 1.7-12.0 [facility] Comment on above: Performed By: #### C BC #### [facility] [address] [place] [address] Dr. Deepak Greenfield NEUT # 2.4 103/ul Normal 1.4-6.5 [facility] Comment on above: Performed By: #### C BC #### [facility] [address] [place] [address] Dr. Deepak Greenfield Neutrophils/100 WBC (Bld) 36.9 % Critically low 43.0-75.0 [facility] Comment on above: Performed By: #### C BC #### [facility] [address] [place] [address] Dr. Deepak Greenfield Platelet mean volume (Bld) [Entitic vol] 10.2 fL Normal 9.5-13.5 [facility] Comment on above: Performed By: #### C BC #### [facility] [address] [place] [address] Dr. Deepak Greenfield PLT 248 103/ul Normal 150-450 [facility] Comment on above: Performed By: #### C BC #### [facility] [address] [place] [address] Dr. Deepak Greenfield RBC 3.82 106/ul Critically low 4.70-6.[address] [facility] Comment on above: Performed By: #### C BC #### [facility] [address] [place] [address] Dr. Deepak Greenfield WBC 6.5 103/ul Normal 4.0-11.0 [facility] Comment on above: Performed By: #### C BC #### [facility] [address] [place] [address] Dr. Deepak Greenfield FERRITINon 04-22-2022 Ferritin [Mass/Vol] 152.0 ng/mL Normal 26.0-388.0 [facility] Comment on above: Performed By: #### M Lacy, CMP #### [facility] [address] [place] [address] Dr. Deepak Greenfield IRONon 04-22-2022 Iron [Mass/Vol] 136.0 ug/dL Normal 65.0-175.0 [facility] Comment on above: Performed By: #### Karishma House, CMP #### [facility] [address] [place] [address] Dr. Deepak Greenfield MAGNESIUMon 04-22-2022 Magnesium [Mass/Vol] 1.6 mg/dL Critically low 1.8-2.4 [facility] Comment on above: Performed By: #### I NFLUAB #### [facility] [address] [place] [address] Dr. Deepak Greenfield VITAMIN B12on 04-22-2022 Cobalamin (Vitamin B12) [Mass/Vol] 545.0 pg/mL Normal 193.0-986.0 [facility] Comment on above: Performed By: #### M G, CMP #### [facility] [address] [place] [address] Dr. Deepak Greenfield CBC AUTO DIFFon 03-19-2022 BASO # 0.0 103/ul Normal 0.0-0.1 [facility] Comment on above: Performed By: #### M G, CMP #### [facility] [address] [place] [address] Dr. Deepak Greenfield Basophils/100 WBC (Bld) 0.5 % Normal 0.2-2.0 [facility] Comment on above: Performed By: #### M G, CMP #### [facility] [address] [place] [address] Dr. Deepak Greenfield EO # 0.2 103/ul Normal 0.0-0.7 [facility] Comment on above: Performed By: #### M G, CMP #### [facility] [address] [place] [address] Dr. Deepak Greenfield Eosinophils/100 WBC (Bld) 2.0 % Normal 0.9-7.0 [facility] Comment on above: Performed By: #### M G, CMP #### [facility] [address] [place] [address] Dr. Deepak Greenfield Erythrocyte distribution width (RBC) [Ratio] 13.5 % Normal 11.0-15.0 [facility] Comment on above: Performed By: #### M G, CMP #### [facility] [address] [place] [address] Dr. Deepak Greenfield Hematocrit (Bld) [Volume fraction] 38.5 % Critically low 42.0-54.0 [facility] Comment on above: Performed By: #### M G, CMP #### [facility] [address] [place] [address] Dr. Deepak Greenfield Hemoglobin (Bld) [Mass/Vol] 12.6 g/dL Critically low 14.0-18.0 [facility] Comment on above: Performed By: #### M G, CMP #### [facility] [address] [place] [address] Dr. Deepak Greenfield IG # 0.02 10e3/ul Normal 0.00-0.03 [facility] Comment on above: Performed By: #### M G, CMP #### [facility] [address] [place] [address] Dr. Deepak Greenfield IG % 0.2 % Normal 0.0-0.5 [facility] Comment on above: Performed By: #### M G, CMP #### [facility] [address] [place] [address] Dr. Deepak Greenfield LYMPH # 3.1 103/ul Normal 1.2-3.8 [facility] Comment on above: Performed By: #### M G, CMP #### [facility] [address] [place] [address] Dr. Deepak Greenfield Lymphocytes/100 WBC (Bld) 36.2 % Normal 20.5-60.0 [facility] Comment on above: Performed By: #### M G, CMP #### [facility] [address] [place] [address] Dr. Deepak Greenfield MANUAL DIFF REQ NO Normal [facility] Comment on above: Performed By: #### M G, CMP #### [facility] [address] [place] [address] Dr. Deepak Greenfield MCH (RBC) [Entitic mass] 32.1 pg Normal 25.9-34.0 [facility] Comment on above: Performed By: #### M G, CMP #### [facility] [address] [place] [address] Dr. Deepak Greenfield MCHC (RBC) [Mass/Vol] 32.7 g/dL Normal 29.9-35.2 [facility] Comment on above: Performed By: #### M G, CMP #### [facility] [address] [place] [address] Dr. Deepak Greenfield MCV (RBC) [Entitic vol] 98.0 fL Critically high 80.0-94.0 [facility] Comment on above: Performed By: #### M G, CMP #### [facility] [address] [place] [address] Dr. Deepak Greenfield MONO # 0.9 103/ul Critically high 0.3-0.8 [facility] Comment on above: Performed By: #### M G, CMP #### [facility] [address] [place] [address] Dr. Deepak Greenfield Monocytes/100 WBC (Bld) 10.6 % Normal 1.7-12.0 [facility] Comment on above: Performed By: #### M G, CMP #### [facility] [address] [place] [address] Dr. Deepak Greenfield NEUT # 4.3 103/ul Normal 1.4-6.5 [facility] Comment on above: Performed By: #### M G, CMP #### [facility] [address] [place] [address] Dr. Deepak Greenfield Neutrophils/100 WBC (Bld) 50.5 % Normal 43.0-75.0 [facility] Comment on above: Performed By: #### Karishma House, CMP #### [facility] [address] [place] [address] Dr. Deepak Greenfield Platelet mean volume (Bld) [Entitic vol] 9.9 fL Normal 9.5-13.5 [facility] Comment on above: Performed By: #### Karishma House, CMP #### [facility] [address] [place] [address] Dr. Deepak Greenfield PLT 263 103/ul Normal 150-450 [facility] Comment on above: Performed By: #### Karishma House, CMP #### [facility] [address] [place] [address] Dr. Deepak Greenfield RBC 3.93 106/ul Critically low 4.70-6.[address] [facility] Comment on above: Performed By: #### Karishma House, CMP #### [facility] [address] [place] [address] Dr. Deepak Greenfield WBC 8.6 103/ul Normal 4.0-11.0 [facility] Comment on above: Performed By: #### Karishma G, CMP #### [facility] [address] [place] [address] Dr. Deepak Greenfield MAGNESIUMon 03-19-2022 Magnesium [Mass/Vol] 1.5 mg/dL Critically low 1.8-2.4 [facility] Comment on above: Performed By: #### Karishma House, CMP #### [facility] [address] [place] [address] Dr. Deepak Greenfield PROF 14(COMP METB)on 022 Albumin [Mass/Vol] 3.4 g/dL Normal 3.4-5.0 [facility] Comment on above: Performed By: #### M G, CMP #### [facility] [address] [place] [address] Dr. Deepak Greenfield Albumin/Globulin [Mass ratio] 0.9 {ratio} Normal [facility] Comment on above: Performed By: #### M G, CMP #### [facility] [address] [place] [address] Dr. Deepak Greenfield ALP [Catalytic activity/Vol] 47 U/L Normal 46-116 [facility] Comment on above: Performed By: #### M G, CMP #### [facility] [address] [place] [address] Dr. Deepak Greenfield ALT [Catalytic activity/Vol] 48 U/L Normal 16-63 [facility] Comment on above: Performed By: #### M G, CMP #### [facility] [address] [place] [address] Dr. Deepak Greenfield Anion gap [Moles/Vol] 9.5 mmol/L Normal [facility] Comment on above: Performed By: #### M G, CMP #### [facility] [address] [place] [address] Dr. Deepak Greenfield AST [Catalytic activity/Vol] 30 U/L Normal 15-37 [facility] Comment on above: Performed By: #### M G, CMP #### [facility] [address] [place] [address] Dr. Deepak Greenfield Bilirubin [Mass/Vol] 0.2 mg/dL Normal 0.2-1.0 [facility] Comment on above: Performed By: #### M G, CMP #### [facility] [address] [place] [address] Dr. Deepak Greenfield Calcium [Mass/Vol] 8.7 mg/dL Normal 8.5-10.[address] [facility] Comment on above: Performed By: #### M G, CMP #### [facility] [address] [address] [address] Deepak Greenfield Chloride [Moles/Vol] 105 mmol/L Normal 98-107 [facility] Comment on above: Performed By: #### M G, CMP #### [facility] [address] [address] [address] Deepak Greenfield CO2 [Moles/Vol] 32.6 mmol/L Critically high 21.0-32.0 [facility] Comment on above: Performed By: #### M G, CMP #### [facility] [address] [address] [address] Deepak Greenfield Creatinine [Mass/Vol] 0.70 mg/dL Normal 0.70-1.30 [facility] Comment on above: Performed By: #### Karishma G, CMP #### [facility] [address] [place] [address] Dr. Deepak Greenfield EGFR-AF BRITISH >60 Normal >=60 [facility] Comment on above: Performed By: #### Karishma House, CMP #### [facility] [address] [address] [address] Deepak Greenfield EGFR-NON AF BRITISH >60 Normal >=60 [facility] Comment on above: Performed By: #### M G, CMP #### [facility] [address] [place] [address] Dr. Deepak Greenfield Globulin (S) [Mass/Vol] 3.8 g/dL Normal [facility] Comment on above: Performed By: #### M G, CMP #### [facility] [address] [address] [address] Deepak Greenfield Glucose [Mass/Vol] 98 mg/dL Normal 74-106 [facility] Comment on above: Performed By: #### M G, CMP #### [facility] [address] [address] [address] Deepak Greenfield Potassium [Moles/Vol] 4.1 mmol/L Normal 3.5-5.1 [facility] Comment on above: Performed By: #### M G, CMP #### [facility] [address] [address] [address] Deepak Greenfield Protein [Mass/Vol] 7.2 g/dL Normal 6.4-8.[address] [facility] Comment on above: Performed By: #### M G, CMP #### [facility] [address] [address] [address] Deepak Greenfield Sodium [Moles/Vol] 143 mmol/L Normal 136-[address] [facility] Comment on above: Performed By: #### M G, CMP #### [facility] [address] [place] [address] Dr. Deepak Greenfield Urea nitrogen [Mass/Vol] 10.0 mg/dL Normal 7.0-18.0 [facility] Comment on above: Performed By: #### Karishma House, CMP #### [facility] [address] [place] [address] Dr. Deepak Greenfield Urea nitrogen/Creatinine [Mass ratio] 14.3 mg/mg Normal [facility] Comment on above: Performed By: #### Karishma House, CMP #### [facility] [address] [place] [address] Dr. Deepak Greenfield VITAMIN D 25 OHon 03-19-2022 VIT D 25-OH 67.5 ng/mL Normal [facility] Comment on above: Performed By: #### Karishma House, CMP #### [facility] [address] [place] [address] Dr. Deepak Greenfield VIT D RANGES SEE BELOW Normal [facility] Comment on above: Result Comment: <20 ng/mL Vit D deficient 20 - <30 ng/mL Vit D insufficient 30 - 100 ng/mL Vit D sufficient >100 ng/mL Potential Toxicity Performed By: #### M G, CMP #### [facility] [address] [place] [address] Dr. Deepak Greenfield AMMONIAon 03-10-2022 Ammonia (P) [Moles/Vol] 36 umol/L Critically high [facility] Comment on above: Performed By: #### C BC #### [facility] [address] [place] [address] Dr. Deepak Greenfield DEPAKENE/ VALPROIC ACIDon DEPAKENE 93.5 ug/ml Normal 50.0-100.0 [facility] Comment on above: Performed By: #### B MP #### [facility] [address] [place] [address] Dr. Deepak Greenfield BNPon 01-24-2022 Natriuretic peptide B (Bld) [Mass/Vol] 183.0 pg/mL Normal <=450.0 [facility] Comment on above: Performed By: #### M G, CMP #### [facility] [address] [place] [address] Dr. Deepak Greenfield CBC AUTO DIFFon 01-24-2022 BASO # 0.0 103/ul Normal 0.0-0.1 [facility] Comment on above: Performed By: #### C VDTBH #### [facility] [address] [place] [address] Dr. Deepak Greenfield Basophils/100 WBC (Bld) 0.3 % Normal 0.2-2.0 [facility] Comment on above: Performed By: #### C VDTBH #### [facility] [address] [place] [address] Dr. Deepak Greenfield EO # 0.1 103/ul Normal 0.0-0.7 [facility] Comment on above: Performed By: #### C VDTBH #### [facility] [address] [place] [address] Dr. Deepak Greenfield Eosinophils/100 WBC (Bld) 0.4 % Critically low 0.9-7.0 [facility] Comment on above: Performed By: #### C VDTBH #### [facility] [address] [place] [address] Dr. Deepak Greenfield Erythrocyte distribution width (RBC) [Ratio] 13.6 % Normal 11.0-15.0 [facility] Comment on above: Performed By: #### C VDTBH #### [facility] [address] [place] [address] Dr. Deepak Greenfield Hematocrit (Bld) [Volume fraction] 39.3 % Critically low 42.0-54.0 [facility] Comment on above: Performed By: #### C VDTBH #### [facility] [address] [address] [address] Deepak Greenfield Hemoglobin (Bld) [Mass/Vol] 12.6 g/dL Critically low 14.0-18.0 [facility] Comment on above: Performed By: #### C VDTBH #### [facility] [address] [address] [address] Deepak Greenfield IG # 0.04 10e3/ul Critically high 0.00-0.03 [facility] Comment on above: Performed By: #### C VDTBH #### [facility] [address] [place] [address] Dr. Deepak Greenfield IG % 0.3 % Normal 0.0-0.5 [facility] Comment on above: Performed By: #### C VDTBH #### [facility] [address] [place] [address] Dr. Deepak Greenfield LYMPH # 2.4 103/ul Normal 1.2-3.8 [facility] Comment on above: Performed By: #### C VDTBH #### [facility] [address] [place] [address] Dr. Deepak Greenfield Lymphocytes/100 WBC (Bld) 16.6 % Critically low 20.5-60.0 [facility] Comment on above: Performed By: #### C VDTBH #### [facility] [address] [place] [address] Dr. Deepak Greenfield MANUAL DIFF REQ NO Normal [facility] Comment on above: Performed By: #### C VDTBH #### [facility] [address] [address] [address] Deepak Greenfield MCH (RBC) [Entitic mass] 32.0 pg Normal 25.9-34.0 [facility] Comment on above: Performed By: #### C VDTBH #### [facility] [address] [place] [address] Dr. Deepak Greenfield MCHC (RBC) [Mass/Vol] 32.1 g/dL Normal 29.9-35.2 [facility] Comment on above: Performed By: #### C VDTBH #### [facility] [address] [place] [address] Dr. Deepak Greenfield MCV (RBC) [Entitic vol] 99.7 fL Critically high 80.0-94.0 [facility] Comment on above: Performed By: #### C VDTBH #### [facility] [address] [place] [address] Dr. Deepak Greenfield MONO # 1.4 103/ul Critically high 0.3-0.8 [facility] Comment on above: Performed By: #### C VDTBH #### [facility] [address] [place] [address] Dr. Deepak Greenfield Monocytes/100 WBC (Bld) 9.8 % Normal 1.7-12.0 [facility] Comment on above: Performed By: #### C VDTBH #### [facility] [address] [place] [address] Dr. Deepak Greenfield NEUT # 10.7 103/ul Critically high 1.4-6.5 [facility] Comment on above: Performed By: #### C VDTBH #### [facility] [address] [place] [address] Dr. Deepak Greenfield Neutrophils/100 WBC (Bld) 72.6 % Normal 43.0-75.0 [facility] Comment on above: Performed By: #### C VDTBH #### [facility] [address] [place] [address] Dr. Deepak Greenfield Platelet mean volume (Bld) [Entitic vol] 10.4 fL Normal 9.5-13.5 [facility] Comment on above: Performed By: #### C VDTBH #### [facility] [address] [place] [address] Dr. Deepak Greenfield PLT 280 103/ul Normal 150-450 [facility] Comment on above: Performed By: #### C VDTBH #### [facility] [address] [place] [address] Dr. Deepak Greenfield RBC 3.94 106/ul Critically low 4.70-6.[address] [facility] Comment on above: Performed By: #### C VDTBH #### [facility] [address] [place] [address] Dr. Deepak Greenfield WBC 14.7 103/ul Critically high 4.0-11.0 [facility] Comment on above: Performed By: #### C VDTBH #### [facility] [address] [place] [address] Dr. Deepak Greenfield CULTURE BLOODon 01-24-2022 Microscopic examination of blood, culture Culture Observations: No growth at 5 days. Normal [facility] Comment on above: Performed By: #### C BC #### [facility] [address] [place] [address] Dr. Deepak Greenfield Microscopic examination of blood, culture Culture Observations: No growth at 5 days. Normal [facility] Comment on above: Performed By: #### C BC #### [facility] [address] [place] [address] Dr. Deepak Greenfield Covid-19 PCR ([facility])on SARS-CoV-2 (COVID-19) RNA CINDY+probe Ql (Unsp spec) Not detected Normal NOT DETECTED [facility] Comment on above: Result Comment: When diagnostic [...] for this test is supported by the [place] of [employer] and Human Service's declaration that [...] used). Performed By: #### I NFLUAB #### [facility] [address] [place] [address] Dr. Deepak Greenfield LACTATE/LACTIC ACIDon 2021 Lactate [Moles/Vol] 1.7 mmol/L Normal 0.4-1.9 [facility] Comment on above: Performed By: #### M G, CMP #### [facility] [address] [place] [address] Dr. Deepak Greenfield PROF 14(COMP METB)on 022 Albumin [Mass/Vol] 3.2 g/dL Critically low 3.4-5.0 [facility] Comment on above: Performed By: #### M G, CMP #### [facility] [address] [place] [address] Dr. Deepak Greenfield Albumin/Globulin [Mass ratio] 0.7 {ratio} Normal [facility] Comment on above: Performed By: #### M G, CMP #### [facility] [address] [place] [address] Dr. Deepak Greenfield ALP [Catalytic activity/Vol] 49 U/L Normal 46-116 [facility] Comment on above: Performed By: #### M G, CMP #### [facility] [address] [place] [address] Dr. eDepak Greenfield ALT [Catalytic activity/Vol] 41 U/L Normal 16-63 [facility] Comment on above: Performed By: #### Karishma G, CMP #### [facility] [address] [place] [address] Dr. Deepak Greenfield Anion gap [Moles/Vol] 11.1 mmol/L Normal [facility] Comment on above: Performed By: #### M G, CMP #### [facility] [address] [place] [address] Dr. Deepak Greenfield AST [Catalytic activity/Vol] 29 U/L Normal 15-37 [facility] Comment on above: Performed By: #### M G, CMP #### [facility] [address] [place] [address] Dr. Deepak Greenfield Bilirubin [Mass/Vol] 0.5 mg/dL Normal 0.2-1.0 [facility] Comment on above: Performed By: #### M G, CMP #### [facility] [address] [place] [address] Dr. Deepak Greenfield Calcium [Mass/Vol] 9.1 mg/dL Normal 8.5-10.1 [facility] Comment on above: Performed By: #### M G, CMP #### [facility] [address] [place] [address] Dr. Deepak Greenfield Chloride [Moles/Vol] 108 mmol/L Critically high 98-107 [facility] Comment on above: Performed By: #### M G, CMP #### [facility] [address] [place] [address] Dr. Deepak Greenfield CO2 [Moles/Vol] 25.7 mmol/L Normal 21.0-32.0 [facility] Comment on above: Performed By: #### M G, CMP #### [facility] [address] [place] [address] Dr. Deepak Greenfield Creatinine [Mass/Vol] 0.89 mg/dL Normal 0.70-1.30 [facility] Comment on above: Performed By: #### M G, CMP #### [facility] [address] [place] [address] Dr. Deepak Greenfield EGFR-AF BRITISH >60 Normal >=60 [facility] Comment on above: Performed By: #### M G, CMP #### [facility] [address] [place] [address] Dr. Deepak Greenfield EGFR-NON AF BRITISH >60 Normal >=60 [facility] Comment on above: Performed By: #### M G, CMP #### [facility] [address] [place] [address] Dr. Deepak Greenfield Globulin (S) [Mass/Vol] 4.5 g/dL Normal [facility] Comment on above: Performed By: #### M G, CMP #### [facility] [address] [place] [address] Dr. Deepak Greenfield Glucose [Mass/Vol] 178 mg/dL Critically high 74-106 [facility] Comment on above: Performed By: #### M G, CMP #### [facility] [address] [address] [address] Deepak Greenfield Potassium [Moles/Vol] 3.8 mmol/L Normal 3.5-5.1 [facility] Comment on above: Performed By: #### M G, CMP #### [facility] [address] [address] [address] Deepak Greenfield Protein [Mass/Vol] 7.7 g/dL Normal 6.4-8.2 [facility] Comment on above: Performed By: #### M G, CMP #### [facility] [address] [address] [address] Deepak Greenfield Sodium [Moles/Vol] 141 mmol/L Normal 136-145 [facility] Comment on above: Performed By: #### M G, CMP #### [facility] [address] [address] [address] Deepak Greenfield Urea nitrogen [Mass/Vol] 16.0 mg/dL Normal 7.0-18.0 [facility] Comment on above: Performed By: #### M G, CMP #### [facility] [address] [address] [address] Deepak Greenfield Urea nitrogen/Creatinine [Mass ratio] 18.0 mg/mg Normal [facility] Comment on above: Performed By: #### M G, CMP #### [facility] [address] [address] [address] Deepak Greenfield TROPONIN, HIGH SENSITIVITYon 01-24-2022 HSTROP 6.4 pg/mL Normal 4.0-76.1 [facility] Comment on above: Result Comment: CUT- OFF POINTS HAVE BEEN ESTABLISHED BASED ON THE FOURTH UNIVERSAL DEFINITIONS OF MYOCARDIAL INFARCTION. THE UPPER REFERENCE LIMIT (URL) OF TROPONIN, DEFINED THE 99TH PERCENTILE OF cTnI DISTRIBUTION IN A REFERENCE POPULATION, HAS BEEN CONFIRMED THE DECISION THRESHOLD FOR NC DIAGNOSIS. Performed By: #### M G, CMP #### [facility] [address] [address] [address] Deepak Greenfield XR CHEST 1 Von 10-08-2022 XR CHEST 1 V EXAM: XR CHEST 1 V HISTORY: SHORTNESS OF BREATH COMPARISON: Chest x-ray 01/06/2022. TECHNIQUE: Portable chest FINDINGS: Poor inspiratory effort. No pneumothorax or pleural effusion. The heart is not enlarged. No consolidation or infiltrate. Stimulator overlies the left upper abdomen. IMPRESSION: No acute abnormality Electronically authenticated by: ANICETO CROCKER Date: 2022-01-24 15:28 Normal [facility] UA RANDOM W/MICROSCOPICon BACTERIA NONE SEEN Normal NONE SEEN [facility] Comment on above: Performed By: #### C VDTBH #### [facility] [address] [place] [address] Dr. Deepak Greenfield Bilirubin Ql (U) Negative Normal NEGATIVE [facility] Comment on above: Performed By: #### C VDTBH #### [facility] [address] [place] [address] Dr. Deepak Greenfield CAST NONE SEEN Normal NONE SEEN [facility] Comment on above: Performed By: #### C VDTBH #### [facility] [address] [place] [address] Dr. Deepak Greenfield Clarity (U) CLEAR Normal CLEAR [facility] Comment on above: Performed By: #### C VDTBH #### [facility] [address] [place] [address] Dr. Deepak Greenfield Color (U) YELLOW Normal YELLOW [facility] Comment on above: Performed By: #### C VDTBH #### [facility] [address] [place] [address] Dr. Deepak Greenfield Crystals LM Nom (Urine sed) NONE SEEN Normal NONE SEEN [facility] Comment on above: Performed By: #### C VDTBH #### [facility] [address] [place] [address] Dr. Deepak Greenfield Epithelial cells LM Ql (Urine sed) RARE Normal NONE SEEN /RARE [facility] Comment on above: Performed By: #### C VDTBH #### [facility] [address] [place] [address] Dr. Deepak Greenfield Glucose Ql (U) Negative Normal NEGATIVE [facility] Comment on above: Performed By: #### C VDTBH #### [facility] [address] [place] [address] Dr. Deepak Greenfield Hemoglobin Ql (U) Negative Normal NEGATIVE [facility] Comment on above: Performed By: #### C VDTBH #### [facility] [address] [place] [address] Dr. Deepak Greenfield Ketones Ql (U) 15 mg/dl Abnormal NEGATIVE [facility] Comment on above: Performed By: #### C VDTBH #### [facility] [address] [place] [address] Dr. Deepak Greenfield LEUKOCYTES Negative Normal NEGATIVE [facility] Comment on above: Performed By: #### C VDTBH #### [facility] [address] [place] [address] Dr. Deepak Greenfield MUCOUS NONE SEEN Normal NONE SEEN [facility] Comment on above: Performed By: #### C VDTBH #### [facility] [address] [place] [address] Dr. Deepak Greenfield Nitrite Ql (U) Negative Normal NEGATIVE [facility] Comment on above: Performed By: #### C VDTBH #### [facility] [address] [place] [address] Dr. Deepak Greenfield pH (U) 6.0 [pH] Normal 5-9 [facility] Comment on above: Performed By: #### C VDTBH #### [facility] [address] [place] [address] Dr. Deepak Greenfield RBC 0-2 Normal 0-2 [facility] Comment on above: Performed By: #### C VDTBH #### [facility] [address] [place] [address] Dr. Deepak Greenfield SPEC GRAVITY 1.020 Normal 1.005-<=1.025 [facility] Comment on above: Performed By: #### C VDTBH #### [facility] [address] [place] [address] Dr. Deepak Greenfield UA PROTEIN Negative Normal NEGATIVE/ TRACE [facility] Comment on above: Performed By: #### C VDTBH #### [facility] [address] [place] [address] Dr. Deepak Greenfield Urobilinogen Qn (U) 0.2 {Ottoniel'U}/dL Normal 0.2 - 1. 0 [facility] Comment on above: Performed By: #### C VDTBH #### [facility] [address] [place] [address] Dr. Deepak Greenfield WBC NONE SEEN Normal NONE SEEN [facility] Comment on above: Performed By: #### C VDTBH #### [facility] [address] [place] [address] Dr. Deepak Greenfield ALBUMINon 01-12-2022 Albumin [Mass/Vol] 3.4 g/dL Normal 3.4-5.0 [facility] Comment on above: Performed By: #### C VDTBH #### [facility] [address] [place] [address] Dr. Deepak Greenfield ALKALINE PHOSPHAon ALP [Catalytic activity/Vol] 46 U/L Normal 46-116 [facility] Comment on above: Performed By: #### C VDTBH #### [facility] [address] [place] [address] Dr. Deepak Greenfield AMMONIAon 01-12-2022 Ammonia (P) [Moles/Vol] 93 umol/L Critically high 11-32 [facility] Comment on above: Performed By: #### I NFLUAB #### [facility] [address] [place] [address] Dr. Deepak Greenfield BILIRUBIN CONJUGATED (DIRECT )on 01-12-2022 BILI, CONJUGATED 0.1 mg/dL Normal 0.0-0.2 [facility] Comment on above: Performed By: #### C VDTBH #### [facility] [address] [place] [address] Dr. Deepak Greenfield BILIRUBIN TOTALon 01-12-2022 Bilirubin [Mass/Vol] 0.4 mg/dL Normal 0.2-1.0 [facility] Comment on above: Performed By: #### C VDTBH #### [facility] [address] [place] [address] Dr. Deepak Greenfield CBC AUTO DIFFon 01-12-2022 BASO # 0.0 103/ul Normal 0.0-0.1 [facility] Comment on above: Performed By: #### M G, CMP #### [facility] [address] [place] [address] Dr. Deepak Greenfield Basophils/100 WBC (Bld) 0.3 % Normal 0.2-2.0 [facility] Comment on above: Performed By: #### M G, CMP #### [facility] [address] [place] [address] Dr. Deepak Greenfield EO # 0.1 103/ul Normal 0.0-0.7 [facility] Comment on above: Performed By: #### M G, CMP #### [facility] [address] [place] [address] Dr. Deepak Greenfield Eosinophils/100 WBC (Bld) 1.3 % Normal 0.9-7.0 [facility] Comment on above: Performed By: #### M G, CMP #### [facility] [address] [place] [address] Dr. Deepak Greenfield Erythrocyte distribution width (RBC) [Ratio] 14.2 % Normal 11.0-15.0 [facility] Comment on above: Performed By: #### M G, CMP #### [facility] [address] [place] [address] Dr. Deepak Greenfield Hematocrit (Bld) [Volume fraction] 40.4 % Critically low 42.0-54.0 [facility] Comment on above: Performed By: #### M G, CMP #### [facility] [address] [place] [address] Dr. Deepak Greenfield Hemoglobin (Bld) [Mass/Vol] 13.1 g/dL Critically low 14.0-18.0 [facility] Comment on above: Performed By: #### M G, CMP #### [facility] [address] [place] [address] Dr. Deepak Greenfield IG # 0.01 10e3/ul Normal 0.00-0.03 [facility] Comment on above: Performed By: #### M G, CMP #### [facility] [address] [address] [address] Deepak Greenfield IG % 0.1 % Normal 0.0-0.5 [facility] Comment on above: Performed By: #### M G, CMP #### [facility] [address] [address] [address] Deepak Greenfield LYMPH # 3.3 103/ul Normal 1.2-3.8 [facility] Comment on above: Performed By: #### M G, CMP #### [facility] [address] [address] [address] Deepak Greenfield Lymphocytes/100 WBC (Bld) 42.3 % Normal 20.5-60.0 [facility] Comment on above: Performed By: #### M G, CMP #### [facility] [address] [address] [address] Deepak Greenfield MANUAL DIFF REQ NO Normal [facility] Comment on above: Performed By: #### M G, CMP #### [facility] [address] [address] [address] Deepak Greenfield MCH (RBC) [Entitic mass] 32.4 pg Normal 25.9-34.0 [facility] Comment on above: Performed By: #### M G, CMP #### [facility] [address] [address] [address] Deepak Greenfield MCHC (RBC) [Mass/Vol] 32.4 g/dL Normal 29.9-35.2 [facility] Comment on above: Performed By: #### M G, CMP #### [facility] [address] [address] [address] Deepak Greenfield MCV (RBC) [Entitic vol] 100.0 fL Critically high 80.0-94.0 [facility] Comment on above: Performed By: #### M G, CMP #### [facility] [address] [address] [address] Deepak Greenfield MONO # 0.6 103/ul Normal 0.3-0.8 [facility] Comment on above: Performed By: #### M G, CMP #### [facility] [address] [address] [address] Deepak Greenfield Monocytes/100 WBC (Bld) 7.6 % Normal 1.7-12.0 [facility] Comment on above: Performed By: #### M G, CMP #### [facility] [address] [address] [address] Deepak Greenfield NEUT # 3.8 103/ul Normal 1.4-6.5 [facility] Comment on above: Performed By: #### M G, CMP #### [facility] [address] [place] [address] Dr. Deepak Greenfield Neutrophils/100 WBC (Bld) 48.4 % Normal 43.0-75.0 [facility] Comment on above: Performed By: #### M G, CMP #### [facility] [address] [place] [address] Dr. Deepak Greenfield Platelet mean volume (Bld) [Entitic vol] 9.6 fL Normal 9.5-13.5 [facility] Comment on above: Performed By: #### M G, CMP #### [facility] [address] [place] [address] Dr. Deepak Greenfield PLT 315 103/ul Normal 150-450 [facility] Comment on above: Performed By: #### M G, CMP #### [facility] [address] [place] [address] Dr. Deepak Greenfield RBC 4.04 106/ul Critically low 4.70-6.[address] [facility] Comment on above: Performed By: #### M G, CMP #### [facility] [address] [place] [address] Dr. Deepak Greenfield WBC 7.9 103/ul Normal 4.0-11.0 [facility] Comment on above: Performed By: #### M G, CMP #### [facility] [address] [place] [address] Dr. Deepak Greenfield DEPAKENE/VALPROICon 01-13-20 22 DEPAKENE 89.7 ug/ml Normal 50.0-100.0 [facility] Comment on above: Performed By: #### I NFLUAB #### [facility] [address] [address] [address] Deepak Greenfield PROF CHEM 8 (BAS METB)on Anion gap [Moles/Vol] 12.9 mmol/L Normal [facility] Comment on above: Performed By: #### I NFLUAB #### [facility] [address] [place] [address] Dr. Deepak Greenfield Calcium [Mass/Vol] 8.8 mg/dL Normal 8.5-10.1 [facility] Comment on above: Performed By: #### I NFLUAB #### [facility] [address] [place] [address] Dr. Deepak Greenfield Chloride [Moles/Vol] 103 mmol/L Normal 98-107 [facility] Comment on above: Performed By: #### I NFLUAB #### [facility] [address] [place] [address] Dr. Deepak Greenfield CO2 [Moles/Vol] 28.1 mmol/L Normal 21.0-32.0 [facility] Comment on above: Performed By: #### I NFLUAB #### [facility] [address] [place] [address] Dr. Deepak Greenfield Creatinine [Mass/Vol] 0.58 mg/dL Critically low 0.70-1.30 [facility] Comment on above: Performed By: #### I NFLUAB #### [facility] [address] [place] [address] Dr. Deepak Greenfield EGFR-AF BRITISH >60 Normal >=60 [facility] Comment on above: Performed By: #### I NFLUAB #### [facility] [address] [place] [address] Dr. Deepak Greenfield EGFR-NON AF BRITISH >60 Normal >=60 [facility] Comment on above: Performed By: #### I NFLUAB #### [facility] [address] [place] [address] Dr. Deepak Greenfield Glucose [Mass/Vol] 117 mg/dL Critically high 74-106 [facility] Comment on above: Performed By: #### I NFLUAB #### [facility] [address] [place] [address] Dr. Deepak Greenfield Potassium [Moles/Vol] 4.0 mmol/L Normal 3.5-5.1 [facility] Comment on above: Performed By: #### I NFLUAB #### [facility] [address] [place] [address] Dr. Deepak Greenfield Sodium [Moles/Vol] 140 mmol/L Normal 136-145 [facility] Comment on above: Performed By: #### I NFLUAB #### [facility] [address] [place] [address] Dr. Deepak Greenfield Urea nitrogen [Mass/Vol] 7.0 mg/dL Normal 7.0-18.0 [facility] Comment on above: Performed By: #### I NFLUAB #### [facility] [address] [place] [address] Dr. Deepak Greenfield Urea nitrogen/Creatinine [Mass ratio] 12.1 mg/mg Normal [facility] Comment on above: Performed By: #### I NFLUAB #### [facility] [address] [place] [address] Dr. Deepak Greenfield SGOTon 01-12-2022 AST [Catalytic activity/Vol] 31 U/L Normal 15-37 [facility] Comment on above: Performed By: #### C VDTBH #### [facility] [address] [place] [address] Dr. Deepak Greenfield SGPTon 01-12-2022 ALT [Catalytic activity/Vol] 48 U/L Normal 16-63 [facility] Comment on above: Performed By: #### C VDTBH #### [facility] [address] [place] [address] Dr. Deepak Cardoso PROTEIN SERUMon 01-12-2022 Protein [Mass/Vol] 7.3 g/dL Normal 6.4-8.2 [facility] Comment on above: Performed By: #### B MP #### [facility] [id number] Deepak Greenfield XR CHEST 2 Von [...] by: ANICETO CROCKER Date: 2022-01-06 16:15 Normal [facility] XR DEXA BONE DENSITYon 11-20 XR DEXA [...] by: MARGARITO DAVIES Date: 2021-11-20 11:42 Normal [facility] US SCROTUMon 11-14-2021 US SCROTUM [...] KRISTIAN BILLINGS Date: 2021-11-14 07:10 Normal [facility] AMMONIAon 10-31-2021 Ammonia (P) [Moles/Vol] 88 umol/L Critically high [facility] Comment on above: Performed By: #### M G, CMP #### [facility] [address] [place] [address] Dr. Deepak Greenfield AMMONIAon 10-30-2021 Ammonia (P) [Moles/Vol] 103 umol/L Critically high [facility] Comment on above: Result Comment: SPEC IMEN SLIGHTLY HEMOLYZED MAY AFFECT AMM RESULT Performed By: #### I NFLUAB #### [facility] [address] [place] [address] Dr. Deepak Greenfield WOUND CULTUREon 10-23-2021 Bacteria identified Aer cx Nom (Unsp spec) Final report Normal [facility] Comment on above: Performed By: #### C XWND #### [facility] [address] [place] [address] Dr. Deepak Greenfield Result 1 Comment Normal [facility] Comment on above: Result Comment: No g rowth in 36 - 48 hours. Performed By: #### C XWND #### [facility] [address] [place] [address] Dr. Deepak Greenfield WOUND CULTUREon 10-02-2021 Bacteria identified Aer cx Nom (Unsp spec) Final report Normal [facility] Comment on above: Performed By: #### A MM #### [facility] [address] [place] [address] Dr. Deepak Greenfield Result 1 Mixed skin omid Normal [facility] Comment on above: Performed By: #### A MM #### [facility] [address] [place] [address] Dr. Deepak Greenfield AMYLASEon 09-22-2021 Amylase [Catalytic activity/Vol] 24 U/L Critically low 25-115 [facility] Comment on above: Performed By: #### C BC #### [facility] [address] [place] [address] Dr. Deepak Greenfield CBC AUTO DIFFon 09-22-2021 BASO # 0.0 103/ul Normal 0.0-0.1 [facility] Comment on above: Performed By: #### C VDTBH #### [facility] [address] [place] [address] Dr. Deepak Greenfield Basophils/100 WBC (Bld) 0.5 % Normal 0.2-2.0 [facility] Comment on above: Performed By: #### C VDTBH #### [facility] [address] [place] [address] Dr. Deepak Greenfield EO # 0.1 103/ul Normal 0.0-0.7 [facility] Comment on above: Performed By: #### C VDTBH #### [facility] [address] [place] [address] Dr. Deepak Greenfield Eosinophils/100 WBC (Bld) 1.3 % Normal 0.9-7.0 [facility] Comment on above: Performed By: #### C VDTBH #### [facility] [address] [place] [address] Dr. Deepak Greenfield Erythrocyte distribution width (RBC) [Ratio] 13.9 % Normal 11.0-15.0 [facility] Comment on above: Performed By: #### C VDTBH #### [facility] [address] [place] [address] Dr. Deepak Greenfield Hematocrit (Bld) [Volume fraction] 40.0 % Critically low 42.0-54.0 [facility] Comment on above: Performed By: #### C VDTBH #### [facility] [address] [address] [address] Deepak Greenfield Hemoglobin (Bld) [Mass/Vol] 13.0 g/dL Critically low 14.0-18.0 [facility] Comment on above: Performed By: #### C VDTBH #### [facility] [address] [address] [address] Deepak Greenfield IG # 0.01 10e3/ul Normal 0.00-0.03 [facility] Comment on above: Performed By: #### C VDTBH #### [facility] [address] [address] [address] Deepak Greenfield IG % 0.2 % Normal 0.0-0.5 [facility] Comment on above: Performed By: #### C VDTBH #### [facility] [address] [place] [address] Dr. Deepak Greenfield LYMPH # 3.0 103/ul Normal 1.2-3.8 [facility] Comment on above: Performed By: #### C VDTBH #### [facility] [address] [place] [address] Dr. Deepak Greenfield Lymphocytes/100 WBC (Bld) 47.9 % Normal 20.5-60.0 [facility] Comment on above: Performed By: #### C VDTBH #### [facility] [address] [place] [address] Dr. Deepak Greenfield MANUAL DIFF REQ NO Normal [facility] Comment on above: Performed By: #### C VDTBH #### [facility] [address] [place] [address] Dr. Deepak Greenfield MCH (RBC) [Entitic mass] 32.9 pg Normal 25.9-34.0 [facility] Comment on above: Performed By: #### C VDTBH #### [facility] [address] [place] [address] Dr. Deepak Greenfield MCHC (RBC) [Mass/Vol] 32.5 g/dL Normal 29.9-35.2 [facility] Comment on above: Performed By: #### C VDTBH #### [facility] [address] [place] [address] Dr. Deepak Greenfield MCV (RBC) [Entitic vol] 101.3 fL Critically high 80.0-94.0 [facility] Comment on above: Performed By: #### C VDTBH #### [facility] [address] [place] [address] Dr. Deepak Greenfield MONO # 0.7 103/ul Normal 0.3-0.8 [facility] Comment on above: Performed By: #### C VDTBH #### [facility] [address] [place] [address] Dr. Deepak Greenfield Monocytes/100 WBC (Bld) 10.3 % Normal 1.7-12.0 [facility] Comment on above: Performed By: #### C VDTBH #### [facility] [address] [place] [address] Dr. Deepak Greenfield NEUT # 2.5 103/ul Normal 1.4-6.5 [facility] Comment on above: Performed By: #### C VDTBH #### [facility] [address] [place] [address] Dr. Deepak Greenfield Neutrophils/100 WBC (Bld) 39.8 % Critically low 43.0-75.0 [facility] Comment on above: Performed By: #### C VDTBH #### [facility] [address] [place] [address] Dr. Deepak Greenfield Platelet mean volume (Bld) [Entitic vol] 10.1 fL Normal 9.5-13.5 [facility] Comment on above: Performed By: #### C VDTBH #### [facility] [address] [place] [address] Dr. Deepak Greenfield PLT 311 103/ul Normal 150-450 [facility] Comment on above: Performed By: #### C VDTBH #### [facility] [address] [place] [address] Dr. Deepak Greenfield RBC 3.95 106/ul Critically low 4.70-6.[address] [facility] Comment on above: Performed By: #### C VDTBH #### [facility] [address] [place], [place] [address] Dr. Deepak Greenfield WBC 6.3 103/ul Normal 4.0-11.0 [facility] Comment on above: Performed By: #### C VDTBH #### [facility] [address] [place], [place] [address] ABD/PELV W CONon [...] JAMIE ALICIA Date: 2021-09-22 02:34 Normal [facility] CT HEAD WO CONon 09-22-2021 CT HEAD [...] by: BRITTON FONTENOT Date: 2021-09-22 01:13 Normal [facility] LIPASEon 09-22-2021 Lipase [Catalytic activity/Vol] 28.0 U/L Critically low 73.0-393.0 [facility] Comment on above: Performed By: #### C BC #### [facility] [address] [place] [address] Dr. Deepak Greenfield PROF 14(COMP METB)on 022 Albumin [Mass/Vol] 3.3 g/dL Critically low 3.4-5.0 [facility] Comment on above: Performed By: #### B MP #### [facility] [address] [place] [address] Dr. Deepak Greenfield Albumin/Globulin [Mass ratio] 0.9 {ratio} Normal [facility] Comment on above: Performed By: #### B MP #### [facility] [address] [place] [address] Dr. Deepak Greenfield ALP [Catalytic activity/Vol] 38 U/L Critically low 46-116 [facility] Comment on above: Performed By: #### B MP #### [facility] [address] [place] [address] Dr. Deepak Greenfield ALT [Catalytic activity/Vol] 91 U/L Critically high 16-63 [facility] Comment on above: Performed By: #### B MP #### [facility] [address] [address] [address] Deepak Greenfield Anion gap [Moles/Vol] 10.2 mmol/L Normal [facility] Comment on above: Performed By: #### B MP #### [facility] [address] [address] [address] Deepak Greenfield AST [Catalytic activity/Vol] 50 U/L Critically high 15-37 [facility] [facility] Comment on above: Performed By: #### B MP #### [facility] [address] [address] [address] Deepak Greenfield Bilirubin [Mass/Vol] 0.3 mg/dL Normal 0.2-1.0 [facility] Comment on above: Performed By: #### B MP #### [facility] [address] [address] [address] Deepak Greenfield Calcium [Mass/Vol] 8.6 mg/dL Normal 8.5-10.1 [facility] Comment on above: Performed By: #### B MP #### [facility] [address] [address] [address] Deepak Greenfield Chloride [Moles/Vol] 106 mmol/L Normal 98-107 [facility] Comment on above: Performed By: #### B MP #### [facility] [address] [address] [address] Deepak Greenfield CO2 [Moles/Vol] 29.9 mmol/L Normal 21.0-32.0 [facility] Comment on above: Performed By: #### B MP #### [facility] [address] [address] [address] Deepak Greenfield Creatinine [Mass/Vol] 0.65 mg/dL Critically low 0.70-1.30 [facility] Comment on above: Performed By: #### B MP #### [facility] [address] [address] [address] Deepak Greenfield EGFR-AF BRITISH >60 Normal >=60 [facility] Comment on above: Performed By: #### B MP #### [facility] [address] [address] [address] Deepak Greenfield EGFR-NON AF BRITISH >60 Normal >=60 [facility] Comment on above: Performed By: #### B MP #### [facility] [address] [address] [address] Deepak Greenfield Globulin (S) [Mass/Vol] 3.7 g/dL Normal [facility] Comment on above: Performed By: #### B MP #### [facility] [address] [address] [address] Deepak Greenfield Glucose [Mass/Vol] 105 mg/dL Normal 74-[address] [facility] Comment on above: Performed By: #### B MP #### [facility] [address] [place] [address] Dr. Deepak Greenfield Potassium [Moles/Vol] 4.1 mmol/L Normal 3.5-5.1 [facility] Comment on above: Performed By: #### B MP #### [facility] [address] [place] [address] Dr. Deepak Greenfield Protein [Mass/Vol] 7.0 g/dL Normal 6.4-8.[address] [facility] Comment on above: Performed By: #### B MP #### [facility] [address] [place] [address] Dr. Deepak Greenfield Sodium [Moles/Vol] 142 mmol/L Normal 136-[address] [facility] Comment on above: Performed By: #### B MP #### [facility] [address] [place] [address] Dr. Deepak Greenfield Urea nitrogen [Mass/Vol] 13.0 mg/dL Normal 7.0-18.0 [facility] Comment on above: Performed By: #### B MP #### [facility] [address] [place] [address] Dr. Deepak Greenfield Urea nitrogen/Creatinine [Mass ratio] 20.0 mg/mg Normal [facility] Comment on above: Performed By: #### B MP #### [facility] [address] [address] [address] Deepak Greenfield Vital Signs Date Time Vital Sign Value Performing Clinician Facility 05-31-2024 13:05-0500 Diastolic blood pressure 64 mm[Hg] Rodriguez Rashel DO Work Phone: [facility] 05-31-2024 13:05-0500 Systolic blood pressure 108 mm[Hg] Rodriguez Rashel DO Work Phone: [facility] 03-07-2024 11:34-0500 Diastolic blood pressure 88 mm[Hg] Rodriguez Rashel DO Work Phone: [facility] 03-07-2024 11:34-0500 Heart rate 68 /min Rodriguez Rashel DO Work Phone: [facility] 03-07-2024 11:34-0500 SaO2% (BldA) [Mass fraction] 98 % Rodriguez Rashel DO Work Phone: [facility] 03-07-2024 11:34-0500 Systolic blood pressure 128 mm[Hg] Rodriguez Rashel DO Work Phone: [facility] 12-16-2022 10:18-0400 Blood Pressure Location Arline Lue [facility] 12-16-2022 10:18-0400 Body temperature 98.06 [degF] Arline Lue [facility] 12-16-2022 10:18-0400 Diastolic blood pressure 78 mm[Hg] Arline Lue [facility] 12-16-2022 10:18-0400 Heart rate 84 /min Arline Lue [facility] 12-16-2022 10:18-0400 Systolic blood pressure 128 mm[Hg] Arline Lue [facility] 12-23-2021 11:30-0400 Body height 157.48 cm Antionette Leonel Other [facility] 12-23-2021 11:30-0400 Body mass index (BMI) [Ratio] 25.79 kg/m2 Antionette Leonel Other [facility] 12-23-2021 11:30-0400 Body temperature 98.5 [degF] Antionette Leonel Other [facility] Other 12-23-2021 11:30-0400 Body weight 63.96 kg Antionette Leonel Other [facility] Other 12-23-2021 11:30-0400 Diastolic blood pressure 70 mm[Hg] Antionette Leonel Other [facility] Other 12-23-2021 11:30-0400 Respiratory rate 20 /min Antionette Leonel Other [facility] Other 12-23-2021 11:30-0400 SaO2% (BldA) [Mass fraction] 99 % Antionette Leonel Other [facility] Other 12-23-2021 11:30-0400 Systolic blood pressure 120 mm[Hg] Antionette Leonel Other [facility] Other 10-22-2021 10:29-0400 Blood Pressure Location Arline Lue [facility] 10-22-2021 10:29-0400 Diastolic blood pressure 92 mm[Hg] Arline Lue [facility] 10-22-2021 10:29-0400 Heart rate 100 /min Arline Lue [facility] [place] 10-22-2021 10:29-0400 Respiratory rate 16 /min Arline Lue [facility] [place] 10-22-2021 10:29-0400 Systolic blood pressure 137 mm[Hg] Arline Lue [facility] [place] Encounters Encounter Date Encounter Type Care Provider Facility Start: 05-31-2024 End: 05-31-2024 Bamboo flowsheet Rodriguez Vang DO Work Phone: [facility] Start: 05-31-2024 End: 05-31-2024 Bamboo flowsheet Rodriguez Vang DO Work Phone: [facility] Start: 05-31-2024 End: 05-31-2024 Office outpatient visit 25 minutes Rodriguez Vang DO Work Phone: [facility] Comment on above: Generalized convulsi ve epilepsy (CMS/HCC) (Primary Dx); 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); Spastic hemiplegia, nondominant side (HCC) (CMS/HCC); Spastic hemiplegia affecting dominant side (CMS/HCC); Severe intellectual disabilities (CMS/HCC); Behavior disturbance (CMS/HCC) Start: 03-28-2024 End: 03-28-2024 Admission to same day surgery center Jared Adair DDS Work Phone: [facility] Start: 03-07-2024 End: 03-07-2024 Bamboo flowsheet Rodriguez Vang DO Work Phone: [facility] [address] [facility] Start: 03-07-2024 End: 03-07-2024 Bamboo flowsheet Rodriguez Vang DO Work Phone: [facility] Start: 03-07-2024 End: 03-07-2024 Office outpatient visit 25 minutes Rodriguez Vang DO Work Phone: [facility] Comment on above: Generalized convulsi ve epilepsy (CMS/HCC) (Primary Dx); 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); Spastic hemiplegia affecting dominant side (CMS/HCC); Spastic hemiplegia, nondominant side (HCC) (CMS/HCC); Severe intellectual disabilities (CMS/HCC) Start: 03-07-2024 End: 03-07-2024 ambulatory RODRIGUEZ RASHEL Not Available Start: 01-11-2024 End: 01-11-2024 ambulatory [facility] Work Phone: Start: 01-11-2024 End: 01-11-2024 Patient encounter procedure [facility] Physician [facility] Work Phone: Start: 11-07-2023 End: 11-07-2023 Letter encounter Abundio Mares DDS Work Phone: [facility] Start: 08-25-2023 End: 08-25-2023 ambulatory RODRIGUEZ VANG Not Available Start: 07-06-2023 End: 07-06-2023 ambulatory [facility] Work Phone: Start: 07-06-2023 End: 07-06-2023 Patient encounter procedure [facility] Physician [facility] Work Phone: Start: 01-05-2023 End: 01-05-2023 ambulatory Antionette Leonel Other [facility] Other Start: 01-05-2023 Office outpatient vi sit 25 minutes Antionette Leonel [facility] Start: 12-16-2022 End: 12-17-2022 ambulatory Arline Levine Facility:[facility] Start: 12-16-2022 End: 12-16-2022 Patient encounter procedure Arline Levine [facility] [place] Start: 08-04-2022 End: 08-04-[address] FAM VENTURA Facility:[facility] Start: 07-29-2022 End: 08-02-2022 Evaluation and management of inpatient DR FAM VENTURA Facility:[facility] Start: 07-26-2022 End: 07-27-[address] FAM VENTURA Facility:[facility] Start: 07-23-2022 End: 07-24-2022 ambulatory FAM VENTURA Facility:[facility] Start: 07-23-2022 End: 07-23-2022 Patient encounter procedure FAM VENTURA [facility] Start: 06-23-2022 End: 06-23-2022 ambulatory Antionette Leonel Other [facility] Other Start: 06-23-2022 Office outpatient vi sit 25 minutes Antionette Leonel [facility] Start: 06-03-2022 End: 06-04-[address] FAM VENTURA Facility:[facility] Start: 05-08-2022 Letter encounter Abundio Mares KETAN Work Phone: [facility] Start: 04-22-2022 End: 04-23-[address] FAM VENTURA Facility:[facility] Start: 03-19-2022 End: 03-20-[address] FAM VENTURA Facility:[facility] Start: 03-10-2022 End: 03-11-[address] FAM VENTURA Facility:[facility] Start: 01-24-2022 End: 01-24-[address] DIAMOND BURGER . Facility:[facility] Start: 01-18-2022 End: 01-18-2022 ambulatory ANJELICA DOLL . Facility:[facility] Start: 01-13-[address] RODRIGUEZ Restrepoi ty:[facility] Start: 01-12-2022 End: 01-13-[address] RODRIGUEZ VANG Facility:[facility] Start: 01-06-2022 End: 01-07-[address] FAM VENTURA Facility:[facility] Start: 12-23-2021 End: 12-23-2021 ambulatory Antionette Leonel Other [facility] Other Start: 12-23-2021 Office outpatient vi sit 25 minutes Antionette Leonel [facility] Start: 12-16-2021 End: 12-17-2021 Patient encounter procedure Mora Powell [facility] Work Phone: [facility] Start: 12-10-2021 End: 12-10-2021 Patient encounter procedure Arline Levine [facility] Start: 11-20-2021 End: 11-21-[address] FAM VENTURA Facility:[facility] Start: 11-13-2021 End: 11-14-2021 ambulatory ARLINE Duenas Facility:[facility] Start: 10-31-2021 End: 11-01-[address] FAM VENTURA Facility:[facility] Start: 10-22-2021 End: 10-22-2021 Patient encounter procedure Arline Levine [facility] Start: 10-21-2021 End: 10-21-[address] FAM VENTURA Facility:[facility] Start: 09-29-2021 End: 09-29-[address] FAM VENTURA Facility:[facility] Start: 09-22-2021 End: 09-22-2021 ambulatory ABBI SANCHEZ Facility:[facility] Procedures Date Procedure Procedure Detail Performing Clinician Start: 05-31-2024 Elec julisa implt npgt phys/qhp w/o programming Rodriguez Rashel DO Work Phone: Start: 03-13-2024 Elec julisa implt npgt phys/qhp w/o programming Rodriguez Rashel DO Work Phone: Plan of Treatment Date Care Activity Detail Author Start: 02-01-2030 Shingles (RZV) Vacci ne (1 of 2) Shingles (RZV) Vaccine (1 of 2) [facility] Start: 11-20-2024 End: 11-20-2024 Patient encounter procedure 11/20/2024 11:20 AM EDT Office Visit [facility] [address] [place] [address] Marissa Gonzalez NP [address] [place], [place] [facility] Start: 06-12-2024 Subsequent hospital visit by physician 06/12/2024 Hospital Encounter [facility] [address] [place] [address] Ap Scott DDS [address] [place] [address] [facility] Start: 06-02-2024 End: 06-02-2024 Patient encounter procedure 06/02/2024 1:30 PM EST Office Visit [facility] [address] [place] [address] Jose Maria Johnson MD [address] [place], [place] [id number] [facility] Start: 05-31-2024 End: 05-31-2024 Patient encounter procedure [facility] [address] Comment on above: Arrived Start: 03-07-2024 End: 03-07-2024 Patient encounter procedure 03/07/2024 11:30 AM EST Office Visit [facility] [address] [facility] [place] [address] Rodriguez Vang DO [address] [place] [address] Ar[address] [facility] [address] Comment on above: Arrived Start: 01-18-2024 Influenza vaccination Influenza Vacc ine (#1) [facility] Start: 12-19-2023 COVID-19 Vaccine ( season) COVID-19 Vaccine ( season) [facility] Start: 12-19-2023 Influenza vaccination Influenza Vacc ine (#1) [facility] Start: 12-18-2022 COVID-19 Vaccine ( season) COVID-19 Vaccine ( season) [facility] Start: 01-17-2022 Influenza vaccination Influenza Vacc ine (#1) [facility] Start: 02-01-2015 Lipid panel [facility] Start: 05-20-2012 Annual wellness visit Annual W ellness Visit ([id number]) [facility] Start: 02-01-2007 HPV Vaccine [...] [facility] Start: 02-01-1995 HIV screening HIV Test [facility] Start: 1980 COVID-19 Vaccine (#1) COVID-19 Vacci ne (#1) [facility] Start: [facility] Medicare Annual Wellness (AWV) Medicare Annual Wellness (AWV) [facility] DENTAL RESTORATIONS DENTAL ANI RATIONS Routine scheduled Caries [facility] Immunizations Immunization Date Immunization Notes Care Provider Lucero ibrahim 03-04-2020 pneumococcal conjuga te vaccine, 13 valent Mora Urmetz [facility] Work Phone: [facility] 01-26-2018 influenza, injectabl e, quadrivalent, preservative free Mora Urmetz [facility] Work Phone: [facility] 01-26-2018 influenza virus vaccine, unspecified formulation Mora Ulloametz [facility] Work Phone: [facility] 02-10-2017 influenza virus vaccine, unspecified formulation Arline Lue [facility] 02-10-2017 influenza, injectabl e, quadrivalent, contains preservative Mora Urmetz [facility] Work Phone: [facility] 02-07-2015 influenza virus vaccine, unspecified formulation Arline Lue [facility] 02-07-2015 influenza, injectabl e, quadrivalent, preservative free Mora Urmetz [facility] Work Phone: [facility] 10-23-2014 pneumococcal polysaccharide vaccine, 23 valent Mora Urmetz [facility] Work Phone: [facility] 12-31-2010 influenza virus vaccine, unspecified formulation Arline Lue [facility] 12-31-2010 influenza, seasonal, injectable Mora Urmetz [facility] Work Phone: [facility] 03-06-2009 novel [id number], preservative-free, injectable Mora Urmetz [facility] Work Phone: [facility] 02-09-2008 influenza virus vaccine, whole virus Mora Urmetz [facility] Work Phone: [facility] 02-09-2008 influenza, whole Arline Lue [facility] NEGATED: Highlighted row has not occurred!12-10-2021 SARS-CoV-2 mRNA (tozinameran 5y-11y) vaccine Arline Lue [facility] Payers Date Payer Category Payer Medicaid [id number] 2011 Medicare [id number] [id number] 2011 Medicare FFS MEDICARE [id number] 1980 Unknown [id number] 2.16.840.1.742065.3.579.2.593 1980 Unknown [id number] 2.16.840.1.267921.3.579.2.593 1980 Unknown [id number] 2.16.840.1.304990.3.579.2.593 1980 Unknown [id number] 2.16.840.1.906582.3.579.2.593 1980 Unknown [id number] 2.16.840.1.000516.3.579.2.727 1980 Unknown [id number] 2.16.840.1.966168.3.579.2.727 1980 Unknown [id number] 2.16.840.1.898209.3.579.2.1259 1980 Unknown [id number] 2.16.840.1.648694.3.579.2.1259 1959 Medicaid [id number] 2.16.840.1.203091. 1959 Medicare [id number] 2.16.840.1.375146.19 1953 Unknown [id number] 2.16.840.1.698438.3.579.2.593 1953 Unknown [id number] 2.16.840.1.580001.3.579.2.593 1953 Unknown [id number] 2.16.840.1.074454.3.579.2.593 1953 Unknown [id number] 2.16.840.1.030822.3.579.2.593 1953 Unknown [id number] 2.16.840.1.211739.3.579.2.593 1953 Unknown [id number] 2.16.840.1.076400.3.579.2.593 1953 Unknown [id number] 2.16.840.1.115407.3.579.2.593 1953 Unknown [id number] 2.16.840.1.344803.3.579.2.593 1953 Unknown [id number] 2.16.840.1.573597.3.579.2.593 1953 Unknown [id number] 2.16.840.1.113584.3.579.2.593 1953 Unknown [id number] 2.16.840.1.767470.3.579.2.593 1953 Unknown [id number] 2.16.840.1.793789.3.579.2.593 1953 Unknown [id number] 2.16.840.1.726577.3.579.2.593 1953 Unknown [id number] 2.16.840.1.598256.3.579.2.593 Self-pay Self Pay [id number] Social History Date Type Detail Facility Tobacco smoking status No Smokin g Status Entered [facility] [place] Start: 11-02-2022 End: 05-31-2024 Sex Assigned At Male [facility] Start: 03-28-2020 Tobacco smoking stat us NHIS Tobacco smoking consumption unknown [facility] Start: 1980 Sex Assigned At Not on [facility] Tobacco smoking status No Smokin g Status Entered [facility] Start: 11-02-2022 End: 12-16-2022 Tobacco smoking status Never smoked tobacco (finding) [facility] Tobacco smoking status Never [facility] Start: 1980 Sex Assigned At Male [facility] Start: 11-02-2022 End: 05-31-2024 Alcoholic beverage intake Ex-drinker (finding) [facility] Start: 11-02-2022 End: 05-31-2024 History of Social function [facility] Start: 02-21-2012 Sex Male (finding) [facility] Functional Status Date Assessment Result Facility 12-16-2022 Functional Status N/A [facility] 12-10-2021 Functional Status N/A [facility] 10-22-2021 Functional Status N/A [facility] Clinical Notes 10-22-2021 to 05-31-2024 Rodriguez Vang, DO - 05/31/2024 1:00 PM Tod Vang, DO - 03/07/2024 11:30 AM EST Note Date & Type Note Facility 05-31-2024 History of Presen t illness Narrative Chief Complaint Patient presents with Seizures Subjective Parish Lopez, 44 y.o., male Caregiver states that he is has been doing good. She states that he has been taking a lot more midday naps. There is a log showing the amount of seizures the patient has had. He is tolerating his other meds. The staff can has a hard time getting him take the medication. His mood has been pretty normal but he does have his off days. He is at his normal frequency of seizure He is sleeping fairly well at night. They got him a new bed and that took some time to adjust too. Overall he is doing well. He does stay awake for activity time. NO other new major issues. 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[facility]) Past Surgical History: Procedure Laterality Date OTHER [...] or dizziness other than in HPI Vitals: 05/31/24 1305 BP: 108/64 There is no height or weight on [...] sec # Magnet Usages: 184 (51 more) oddly now 124 there is a new database programmer Autostim : on at 1.25 Autostim Pulse Width: 500 Autostim On Time: 30 Lead Test: not done Battery Life: 06/20 full Model: [id number] Josefina #: [id number] Manufactured: 2020 Implant Date: 09/09/2021 Assessment/Plan Diagnoses and all orders for this visit: 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 He is multiple seizure types including generalized and focal events. He id on multiple medications that do help control this and doing well with occasional breakthrough event. NO major change. His ammonia has been good lately. He does still occasionally refused to take his medications but it is rare. He is sleeping a little bit more during the day however he is sleeping well at night. Some of this maybe boredom. He is chatty in the room today saying the same words over and over when his usual self He is on Keppra felbamate Trileptal and Onfi and he has a VNS. He was taken off the Depakote for his high ammonia levels Which still fluctuate are sometimes high but not as high as I used to be most recent level on 05/30 was 33 05/02 this 43 vitamin-D level 05/02 was 108.9 He has not had the altered mental status and sedation he was having previously. He has not needed the Diastat recently. Parish has bilateral spastic hemiplegia. He was previously thought to have Tristen disease. Genetic testing for that and it was negative. Regardless there is really no other treatment and it was more informative. Plan: VNS interrogated and it is working well = battery is 50-75% full He actually for some reason has less swipes on this recording however it may be due to a new database programmer device difficult to say Labs as above Cont the current meds Call for increase [...] clinic: 6 months. documented in this encounter [facility] 03-07-2024 History of Presen t illness Narrative [...] not done Battery Life: 06/20 full Model: Oj Rocha #: [id number] Manufactured: 2019 Implant Date: 09/09/2021 Assessment/Plan Diagnoses and all [...] clinic: 6 months. documented in this encounter [facility] 01-05-2023 Evaluation note Encounter Date Diagnosis Assessment Notes Dec, COPD (chronic obstructive pulmonary disease) (ICD-10 - J44.9) [facility] Other 08-30-2023 Hospital Discharge instructions Patient Education [...] provider. Document Revised: 08/14/2021 Document Reviewed: 08/14/2021 [employer] Patient Education 2022 [employer]. Follow Up Care 12/10/2021 11:51:23 With:Abner BYRNE, JUNIOR Hawk, URO Address: When: Unknown Comments:LENORA [facility] 03-07-2023 Evaluation note* Encounter Date Diagnosis Assessment Notes Treatment Notes Treatment Clinical Notes Jun, COPD (chronic obstructive pulmonary disease) (ICD-10 - J44.9) Continue with respiratory regemin, including VEST therapy, as you currently are doing. Call office with respiratory questions or concerns. [facility] Other 09-06-2022 Evaluation note* Encounter Date Diagnosis Assessment Notes Treatment Notes Treatment Clinical Notes Dec, COPD (chronic obstructive pulmonary disease) (ICD-10 - J44.9) Continue with VEST therapy twice a day. Ok to increase to TID if needed. [facility] Other 08-30-2022 Instructions* Patient Instructions* Mora Powell [facility] - 12/16/2021 11:57 AM EDT Pt presented today for OR evaluation. Limited eval was completed. Pt's case is not urgent updated contact information and placed Pt on OR list. Step by step process for OR flyer was given to caregiver. Please wait for phone call from OR coordinator. documented in this [id number] History of Present illness Narrative* Mora Powell [facility] - 12/16/2021 11:42 AM EDT ----- Thursday, December 16, 2021 at 12:03:50 PM ----- ----- Provider: [id number] Heriberto Powell Hygienist -- Clinic: [place] ----- [facility], Pt is ready for tx. Pt presented for dental evaluation for future OR. Caregiver in the room. Patient is non-verbal. Severe intellectual disability, seizure disorder Caregiver stated patient is not pain and no complaining. Radiograph taken today: no possible due to patient behavior Case requested for OR. Guardian mother Katia Lopez. [phone]. [facility] [phone] EXT [id number] ( [facility] AVS printed and handed flyer for step by step instruction of OR process to Caregiver exam By: Elliott Ham [facility] [place]. OR ----- Signed on Thursday, December 16, 2021 at 12:18:18 PM ----- ----- Provider: [id number] Heriberto Adams DDS -- Clinic: [place] ----- documented in this [id number] Hospital Discharge instructions Patient Education 12/10/2021 11:47:35 [...] (electrical nerve stimulation). For women, using a director medical writing to prevent urine leaks. This is a [...] right after experiencing incontinence. General instructions Take nihh-hty-wswytzb and prescription medicines only as told by [...] 05/13/2005 Document Revised: 04/15/2018 Document Reviewed: 07/15/2017 [facility] [employer] Patient Education [employer]. Follow Up Care 10/22/2021 11:38:20 With:Abner BYRNE, JUNIOR Hawk, URO Address: When:1 year Comments:W/ renal US [facility] 07-06-2022 Hospital Discharge instructions Patient Education 10/22/2021 [...] (electrical nerve stimulation). For women, using a director medical writing to prevent urine leaks. This is a [...] right after experiencing incontinence. General instructions Take yvux-lda-hztnxes and prescription medicines only as told by [...] 05/13/2005 Document Revised: 04/15/2018 Document Reviewed: 07/15/2017 [facility] [employer] Patient Education 2020 [employer]. 10/22/2021 11:42:30 Renal Mass Renal Mass A [...] provider gives to you. In general: Take rdrp-usn-pkdfelr and prescription medicines only as told by [...] 10/31/2014 Document Revised: 05/12/2018 Document Reviewed: 05/12/2018 [facility] [employer] Patient Education 2020 [employer]. Follow Up Care 09/22/2021 14:10:46 With:Arline Levine MD, URL, URO Address: When:1 month [facility] evaluation + Plan note Future Appointments Appointment Date:11/19/2021 10:00:00 AM Scheduled Provider:Arline Levine MD Location:[facility] Appointment Type:URO Office Visit [facility] evaluation + Plan note Future Appointments Appointment Date:12/16/2022 10:15:00 AM Scheduled Provider:Arline Levine MD Location:[facility] Appointment Type:URO Office Visit [facility] evaluation note* Diagnosis Onset Date Resolution Status COPD (chronic obstructive pulmonary disease) acute Severe intellectual disability [facility] Work Phone: Evaluation note* Diagnosis Generalized [...] [facility] 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) Spastic hemiplegia, nondominant side (HCC) (CMS/HCC) Spastic hemiplegia affecting nondominant side Spastic hemiplegia affecting dominant side (CMS/HCC) Spastic hemiplegia affecting dominant side Severe intellectual disabilities (CMS/HCC) Severe intellectual disabilities Behavior disturbance (CMS/HCC) Unspecified disturbance of conduct [facility] encounter [facility] - Reported* Type Description Date Medical History Mental retardation Medical History Seizure Disorder Medical History Tristen Syndrome Medical History ADD Medical History Hypothyroidism Medical History Spastic Quadraparesis Medical History Osteoporosis Medical History Tristen-Beuren syndrome Medical History Seizure disorder Medical History Seizure disorder Medical History COPD Surgical History VNS REPLACED 2021 [facility] Other Hospital course Narrative No data available for this section [facility] Hospital Discharge instructions No data available for this section [facility] data available for this section [facility] Summary Purpose Family History No Family History [...] Care Team (unrecognized sect ion and content) Food Mobile Driver Relationship Specialty Start Date End Date Abundio Mares DDS [address] [place] [address] Resident Dentistry 02/23/20 Food Mobile Driver Relationship Specialty Start Date End Date Abundio Mares DDS [address] [place] [address] Resident Dentistry 02/23/20 Team Status: Active Member Role Status Dates Fam Ventura DO Primary Care Provider Active Team Status: Inactive Member Role Status Dates Fam Ventura DO Primary Care Provider Active Start: July 06, 2023 End: July 06, 2023 Antionette Castaneda APRN [facility] Attending Provider Active Start: July 06, 2023 End: July 06, 2023 Food Mobile Driver Relationship Specialty Start Date End Date Abundio Mares DDS [address] [place] [address] Resident Dentistry 02/23/20 Team Status: Inactive Member Role Status Dates Fam Ventura DO Primary Care Provider Active Start: January 11, 2024 End: January 11, 2024 Antionette Castaneda APRN [facility] Attending Provider Active Start: January 11, 2024 End: January 11, 2024 [place] Active Start: 2023 End: January 11, 2024 Food Mobile Driver Relationship Specialty Start Date End Date Unallocated, Rossi Fermin MD [address] [place] [id number] PCP - General 09/23/22 Fam Ventura MD [facility] [address] [place] [address] Referring Physician Orthopaedic Surgery 09/23/22 Food Mobile Driver Relationship Specialty Start Date End Date Unallocated, Rossi Fermin MD [address] [place] [id number] PCP - General 09/23/22 Fam Ventura MD [facility] [address] [place] [address] Referring Physician Orthopaedic Surgery 09/23/22 Food Mobile Driver Relationship Specialty Start Date End Date Abundio Mares [address] [address] Resident Dentistry 02/23/20 Food Mobile Driver Relationship Specialty Start Date End Date Abundio Mares [facility] [address] [place] [address] Resident Dentistry 02/23/20 Food Mobile Driver Relationship Specialty Start Date End Date Unallocated, Rossi Fermin MD [address] [place] [id number] PCP - General 09/23/22 Fam Ventura MD [address] [place], [place] [id number] Referring Physician Orthopaedic Surgery 09/23/22 REASON FOR VISIT (unrecogniz ed section and content) Reason Comments Seizures (unrecognized sect ion and content) No Status Records FoundNo Status Records FoundNo Status Records FoundNo Status Records Found INFORMATION SOURCE (unrecogn ized section and content) DATE CREATED AUTHOR 08/05/2022 [facility] DATE CREATED AUTHOR AUTHOR'S ORGANIZ ATION 01/26/2023 [facility] DATE CREATED AUTHOR AUTHOR'S ORGANIZ ATION 03/09/2024 [facility] DATE CREATED AUTHOR AUTHOR'S ORGANIZ ATION 05/01/2024 [email or web address] Goals (unrecognized section and content) Goals [...] BE BASED ON THE PRIMARY CLINICAL RECORDS. [facility] [employer] [facility]. provides no warranty or guarantee of the accuracy or completeness of information in this document.
== END 2024-05-30 09:14 ==
LOC: LAB 06-01 09:13
PROVIDERS: PCP Family Medicine; Visit Provider Family Medicine
DX: K76.82 Hepatic encephalopathy (principal); E72.20 Disorder of urea cycle metabolism, unspecified; Z79.899 Other long term (current) drug therapy
CPT/HCPCS: 36415; 82140

== ENCOUNTER 2024-07-06 06:53 | Outpatient (OUT) | payer MEDICARE, MEDICAID, SELFPAY ==
--- OUTSIDE RECORDS SUMMARY | 2024-07-06 06:58 | XMS_ITS | CCD ---
Author Organization [facility] CliniSynm Care Team Providers Care Professor Of Spanish Name Role Phone FAM ACEVEDO Primary Care Physician Vishnu ACEVES, Abundio Unavailable Antionette Castaneda Unavailable LORENZO, DR FAM Duran Attending Unavailable ACEVEDO, DR FAM Duran Admitting Unavailable ACEVEDO, DR FAM Duran Primary Care Unavailable ACEVEDO, DR FAM Duran Consulting Unavailable LUE ., ARLINE Schwarz Attending Unavailable LUE .ARLINE Admitting Unavailable ACEVEDO, DR FAM Duran Consulting Unavailable ACEVEDO, DR FAM Duran Primary Care Unavailable ZIEBER, DR KRISTIAN Galvez Consulting Unavailable ACEVEDO, DR FAM Duran Consulting Unavailable ACEVEDO, DR FAM Duran Admitting Unavailable ACEVEDO, DR FAM Duran Primary Care Unavailable ACEVEDO, DR FAM Duran Attending Unavailable ACEVEDO, DR FAM Duran Admitting Unavailable ACEVEDO, DR FAM Duran Consulting Unavailable ACEVEDO, DR FAM Duran Primary Care Unavailable ACEVEDO, DR FAM Duran Attending Unavailable ACEVEDO, DR FAM Duran Admitting Unavailable ACEVEDO, DR FAM Duran Consulting Unavailable ACEVEDO, DR FAM Duran Primary Care Unavailable ACEVEDO, DR FAM Duran Attending Unavailable ACEVEDO, DR FAM Duran Primary Care Unavailable LOYA ., DR BRIDGET Foster Consulting Unavailable LOYA ., DR BRIDGET Foster Attending Unavailable LOYA ., DR BRIDGET Foster Admitting Unavailable NADERELeonor, DR CHELE Duran Consulting Unavailable ALICE .IDRIS Consulting Unavailsusan BURGER ., DR FIELDS Consulting Unavailable MALKA PEREZ Consulting Unavailable RILEY, SOPHIA Consulting Unavailable JBGURJIT REYES Consulting Unavailable ACEVEDO, DR FAM Duran Primary Care Unavailable NADERER, DR CHELE Duran Consulting Unavailable NADERER, DR CHELE Duran Attending Unavailable NADERER, DR CHELE Duran Admitting Unavailable ANICETO GARCIA Consulting Unavailable DIAB ., EMIL Consulting Unavailable RASHEL, DR FRIAS Admitting Unavailable RASHEL, DR FRIAS Attending Unavailable ACEVEDO, DR FAM Duran Primary Care Unavailable ACEVEDO, DR FAM Duran Consulting Unavailable RASHEL, DR FRIAS Consulting Unavailable ACEVEDO, DR FAM Duran Admitting Unavailable ACEVEDO, DR FAM Duran Primary Care Unavailable ACEVEDO, DR FAM Duran Consulting Unavailable ACEVEDO, DR FAM Duran Attending Unavailable KlipperAniceto Consulting Unavailable RASHEL, DR FRIAS Attending Unavailable ACEVEDO, DR FAM Duran Primary Care Unavailable RASHEL, DR FRIAS Admitting Unavailable ACEVEDO, DR FAM Duran Admitting Unavailable ACEVEDO, DR FAM Duran Consulting Unavailable ACEVEDO, DR FAM Duran Primary Care Unavailable ACEVEDO, DR FAM Duran Attending Unavailable DAVIESMARGARITO FOSS Consulting Unavailable ACEVEDO, DR FAM Duran Admitting Unavailable ACEVEDO, DR FAM Duran Consulting Unavailable ACEVEDO, DR FAM Duran Primary Care Unavailable ACEVEDO, DR FAM Duran Attending Unavailable ACEVEDO, DR FAM Duran Attending Unavailable ACEVEDO, DR FAM Duran Admitting Unavailable ACEVEDO, DR FAM Duran Primary Care Unavailable ACEVEDO, DR FAM Duran Consulting Unavailable ACEVEDO, DR FAM Duran Admitting Unavailable ACEVEDO, DR FAM Duran Primary Care Unavailable ACEVEDO, DR FAM Duran Attending Unavailable ACEVEDO, DR FAM Duran Consulting Unavailable DANIEL, ABBI Consulting Unavailable DANIEL, ABBI Attending Unavailable DANIEL, ABBI Admitting Unavailable ACEVEDO, DR FAM Duran Primary Care Unavailable BRITTON FONTENOT Consulting Unavailable JAMIE ALICIA Consulting Unavailable ACEVEDO, DR FAM Duran Primary Care Unavailable CRISTI .PARISH Attending Unavailable CRISTI ., PARISH Admitting Unavailable ALICE .IDRIS Consulting UnavailGUANAKITO Redd Consulting Unavailable SHARMILA ., ANJELICA Consulting Unavailable SHARMILA .ANJELICA Attending Unavailable ACEVEDO, DR FAM Duran Primary Care Unavailable SHARMILA .ANJELICA Admitting Unavailable HAY ., DR FIELDS Consulting Unavailable HAY ., DR FIELDS Attending Unavailable ACEVEDO, DR FAM Duran Primary Care Unavailable HAY ., DR FIELDS Admitting Unavailable Klipper, Aniceto Consulting Unavailable LuArline foster Attending Unavailable ACEVEDO, FAM Referring Unavailable ACEVEDO, FAM Attending Unavailable ACEVEDO, FAM Admitting Unavailable Abundio Mares DDS Unavailable Fam Acevedo MD Unavailable [phone] Unallocated , [place] Provider Primary Care Diamante fajardo RODRIGUEZ KISER Attending Unavailable RASHEL, RODRIGUEZ Attending Unavailable RODRIGUEZ KISER Attending Unavailable PROVIDER, UNKNOWN Admitting Unavailable AL-MASHNI, AP Attending Unavailable BOYD HARRY Referring Unavailable PROVIDER, UNKNOWN Admitting Unavailable PROVIDER, UNKNOWN Attending Unavailable AL-MASHNI, AP Admitting Unavailable AL-MASHNI, AP Attending Unavailable BOYD HARRY Attending Unavailable PROVIDER, UNKNOWN Admitting Unavailable PROVIDER, UNKNOWN Attending Unavailable PROVIDER, UNKNOWN Admitting Unavailable PROVIDER, UNKNOWN Attending Unavailable AL-MASHNI, AP Referring Unavailable PROVIDER, UNKNOWN Admitting Unavailable Allergies Allergy Classification Reported Allergen(s) Allergy Type Date of Onset Reaction(s) Facility (8 sources) Amoxicillin / Clavulanate; Translations: [amoxicillin-clav ulanate] Drug Allergy Unknown [facility] (16 sources) Phenytoin; Translations: [phenytoin] Drug Allergy 3 Unknown [facility] (20 sources) Promethazine; Translations: [promethazine] Drug Allergy 7 Unknown [facility] (12 sources) Phenytoin; Translations: [PHENYTOIN SODIUM EXTENDED] Drug Allergy 7 Unknown [facility] (12 sources) Amoxicillin-Pot Clavulanate; Translations: [AMOXICILLIN-POT CLAVULANATE] Propensity to adverse reactions to drug 7 Unknown [facility] (2 sources) 4-Aminobenzoic Acid; Translations: [PERTUSSIS VACCINES] Drug Allergy 5 [facility] (1 source) Amoxicillin / Clavulanate Drug Allergy 4 [facility] (1 source) Levamisole Drug Allergy 4 [facility] (1 source) metroNIDAZOLE Drug Allergy [facility] (1 source) Phenytoin Drug Allergy 4 [facility] (1 source) remdesivir (investigational use) Drug allergy (disorder) [facility] (8 sources) Amoxicillin Drug Allergy [address] [facility] (7 sources) Clavulanate Drug Allergy [address] [facility] Medications Current Medications Medication Drug Class(es) Dates Sig (Normalized) Sig (Original) Acetaminophen (8 sources) Start: 12-16-2022 acetaminophen Refills(s) 0 Start Date: 12/16/22 Status: Ordered Start: 03-28-2020 Acetaminophen Active 650 MG NE EVERY 4-6 HOURS March 28, 2020 1:00am [...] Status: Ordered take 1 tablet by rebecca once daily alendronate (Fosamax) 70 MG tablet [...] 2020 1:00am take 1 capsule by mo nch every eight hours Benzonatate 100 MG 1 [...] 10:24am 10MG RECTAL GEL, PATIENT TAKES IT NE - wont let me save without route. [...] 28, 2020 1:00am take 1 capsule by [facility] every twenty-four hours Docusate Sodium 100 [...] Start: 03-28-2020 take 1 tablet by rebecca twice daily, then take 1 tablet by [...] tablet by rebecca th every twenty-four hours Levothyroxine Sodium 150 MCG [...] Ordered Normal saline (7 sources) Start: 07-05-2015 [place] Saline Alpa al Gel Nasal, TID, Refill(s) 0, Dry nasal passages Start Date: 07/05/15 Status: Ordered [place] Saline Nasal Gel Nasally Active omeprazole 40 [...] bid, Prophylaxis Start Date: 07/05/15 Status: Ordered [id number] oral powder for reconstitution (1 source) Start: 023 [id number] oral powder for reconstitution Start Date: 12/16/22 Status: Ordered polyethylene glycol 3350 [id number] mg powder for oral solution (4 sources) [...] e a day Active Sodium Chloride-Aloe Vera ([place] Saline) gel (2 sources) Start: 06-28-2023 Sodium Chlorid e-Aloe Vera ([place] Saline) gel Active 1 APPLIC TOPICAL Daily [...] unspecified type; Translations: [ADHD UNSPECIFIED TYPE] Onset: Chronic Attention-deficit, conduct, and disruptive behavior disorders (2 sources) Disruptive behavior disorder; 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, unspecified] 05-31-2024 Chronic Cardiac dysrhythmias (1 source) Tachycardia, unspecified; Translations: [Tachycardia, unspecified] Onset: 5 Episodic Chronic obstructive pulmonary disease and bronchiectasis (14 sources) Chronic obstructive lung disease; Translations: [Chronic obstructive pulmonary disease, unspecified] Onset: 2 Resolved: 2 Chronic Developmental disorders (20 sources) Severe intellectual disability; Translations: [Mental handicap] Onset: 0 06-30-2013 Chronic Disorders of lipid metabolism (1 source) Hyperlipidemia, unspecified; Translations: [HYPERLIPIDEMIA UNSPECIFIED] Onset: 3 Chronic Disorders of teeth and jaw (5 sources) Dental caries; Translations: [Dental caries, unspecified] Onset: 4 03-28-2024 Episodic E Codes: Adverse effects of medical drugs (1 source) Adverse effect of other antiepileptic and sedative-hypnotic drugs, initial encounter; Translations: [ADVRS EFF OTH ANTIEPI SED RX INIT] Onset: 3 Episodic Epilepsy; convulsions (20 sources) Epilepsy, unspecified, not intractable, without status epilepticus; Translations: [Seizure disorder] Onset: 3 Chronic Epilepsy; convulsions (15 sources) Seizure disorder; Translations: [Unspecified convulsions] Onset: 2 06-30-2013 Episodic Esophageal disorders (3 sources) Gastro-esophageal reflux disease without esophagitis; Translations: [Gastroesophageal reflux disease] Onset: 3 07-06-2023 Chronic Genitourinary congenital anomalies (7 sources) Retractile testis; 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] Onset: 2 Chronic Genitourinary symptoms and ill-defined conditions (4 sources) Unspecified urinary incontinence; Translations: [Intermittent urinary incontinence] Onset: 2 Chronic Hyperplasia of prostate (1 source) Benign prostatic hyperplasia without lower urinary tract symptoms; Translations: [BENIGN PROSTATIC HYPRPLASIA WO LUTS] Onset: 3 Chronic Malaise and fatigue (1 source) Other fatigue; Translations: [OTHER FATIGUE] Onset: 3 Episodic Menopausal disorders (1 source) Hormone replacement therapy; Translations: [HORMONE REPLACEMENT THERAPY] Onset: 3 Episodic Mycoses (4 sources) Onychomycosis 06-30-2013 Episodic Nephritis; nephrosis; renal sclerosis (6 sources) 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; Translations: [Nephritis and nephropathy, not specified as acute or chronic, with unspecified pathological lesion in kidney] Onset: 4 08-23-2023 Chronic Nutritional deficiencies (1 source) Vitamin D deficiency, unspecified; Translations: [VITAMIN D DEFICIENCY UNSPECIFIED] Onset: 2 Chronic Osteoporosis (9 sources) Osteoporosis; Translations: [Age-related osteoporosis without current pathological fracture] Onset: 2 06-30-2013 Chronic Other aftercare (5 sources) Other fci (current) drug therapy; Translations: [OTH CUSTOMER SERVICER CURRENT DRUG THERAPY] Onset: 3 Episodic Other and ill-defined heart disease (1 source) Cardiomegaly; Translations: [Cardiomegaly] Onset: 5 Chronic Other congenital anomalies (1 source) Tristen syndrome; 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] Onset: 3 Chronic Other diseases of kidney and ureters (1 source) 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; Translations: [Cyst of kidney, acquired] Onset: 2 Episodic Other gastrointestinal disorders (1 source) Other constipation; Translations: [OTHER CONSTIPATION] Onset: 3 Episodic Other liver diseases (1 source) Hepatic encephalopathy; Translations: [HEPATIC ENCEPHALOPATHY] Onset: 3 Episodic Other lower respiratory disease (4 sources) Shortness of breath; Translations: [SHORTNESS OF BREATH] Onset: 2 Episodic Other lower respiratory disease (2 sources) Wheezing; Translations: [Wheezing] 03-31-2023 Episodic Other nutritional; endocrine; and metabolic disorders (5 sources) Disorder of urea cycle metabolism, unspecified; 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] Onset: 2 Chronic Other screening for suspected conditions (not mental disorders or infectious disease) (2 sources) Abnormal finding of blood chemistry, unspecified; Translations: [Abnormal electrocardiogram [ECG] [EKG]] Onset: 3 Episodic Other upper respiratory disease (2 sources) Seasonal allergy; Translations: [Other seasonal allergic rhinitis] 07-06-2023 Chronic Other upper respiratory infections (5 sources) Chronic sinusitis; Translations: [Chronic sinusitis, unspecified] 07-06-2023 Chronic Paralysis (20 sources) Tetraplegia; Translations: [Quadriplegia, unspecified] Onset: 2 Chronic Pneumonia (except that caused by tuberculosis or sexually transmitted disease) (1 source) Pneumonia, unspecified organism; Translations: [PNEUMONIA UNSPECIFIED ORGANISM] Onset: 3 Episodic Residual codes; unclassified (1 source) Restlessness and agitation; Translations: [RESTLESSNESS AND AGITATION] Onset: 3 Chronic Residual codes; unclassified (1 source) Edema, unspecified; Translations: [Edema, unspecified] Onset: 5 Episodic Respiratory failure; insufficiency; arrest (adult) (1 source) Acute respiratory failure with hypoxia; Translations: [ACUTE RESPIRATORY FAIL W/HYPOXIA] Onset: 3 Episodic Septicemia (except in labor) (5 sources) Sepsis, unspecified organism; Translations: [Other specified sepsis] Onset: 3 Episodic Thyroid disorders (8 sources) Hypothyroidism; Translations: [Hypothyroidism, unspecified] Onset: 3 06-30-2013 Chronic Unclassified (3 sources) COUGH, UNSPECIFIED; Translations: [COUGH, UNSPECIFIED] Onset: 3 Unclassified (1 source) CONTACT W/AND (SUSP) EXPOS COVID-19; Translations: [CONTACT W/AND (SUSP) EXPOS COVID-19] Onset: 3 Unclassified (1 source) PT OTH NONCOMPLIANCE MED OTH REASON; Translations: [PT OTH NONCOMPLIANCE MED OTH REASON] Onset: 3 Viral infection (1 source) Human metapneumovirus as the cause of diseases classified elsewhere; Translations: [HMPV CAUSE DZ CLASSIFIED ELSEWHERE] Onset: 3 Episodic Past or Other Problems Problem Classification Problem Date Documented Da te Episodic/Chronic Complications of surgical procedures or medical care (4 sources) Other complications of procedures, not elsewhere classified, initial encounter; Translations: [OTH COMPLICATIONS PROC NEC INITIAL] Onset: 09-29-2021 Episodic Epilepsy; convulsions (4 sources) Epilepsy; convulsions [...] MALE GENITAL ORGANS] Onset: 11-19-2021 Episodic Other upper respiratory infections (1 source) Acute upper respiratory infection, unspecified; Translations: [ACUTE UP RESPIRATORY INFECTION UNS] Onset: 01-27-2022 Episodic Residual codes; unclassified (1 source) Insomnia, unspecified; Translations: [INSOMNIA UNSPECIFIED] Onset: 01-27-2022 Episodic Unclassified (1 source) COUGH, UNSPECIFIED; Translations: [COUGH, UNSPECIFIED] Onset: 08-04-2022 Results Test Name Value Interpretation Reference Range Facility Anesthesia Postprocedure Lucia luationon 06-12-2024 Park Worker Authentication Interface Message Text Anesthesia Postoperative Assessment: Vital Signs (most recent): BP 158/84 (BP Location: right arm) Pulse 84 Temp 36.9 ???C (98.4 ???F) (Temporal) Resp 16 Wt 139 lb (63 kg) SpO2 96% Anesthesia Post Evaluation Level of consciousness: arousable Post-procedure exam normal. Body temperature, hydration status, PONV and pain evaluated and addressed. Pain management: adequate Hydration status: normal PONV:No nausea/vomiting reported Cardiopulmonary status stable Respiratory status: acceptable Cardiovascular status: acceptable Comments: Caregiver at bedside ANESTHESIA NOTABLE EVENTS: No notable events documented. Normal [facility] Anesthesia Preprocedure Eval uationon 06-12-2024 Park Worker Authentication Interface Message Text ASA: 3 No history of anesthetic complications NPO status: Greater than 8 hours Past Medical History and Review of Systems Pulmonary (+) COPD (-) non-smoker Dental Endo (+) hypothyroidism Neuro/Psych (+) seizures Comment: Intellectual disability Cardiovascular (+) exercise intolerance <4 METs, Surgical risk: low; Cardiac condition: stable, hyperlipidemia Comment: EKG 06/02/2024: Sinus tachycardia Possible Left atrial enlargement Nonspecific T wave abnormality Abnormal ECG Confirmed by JOSSELIN NIETO ([id number]) on 06/05/2024 9:00:17 PM GI/Hepatic/Renal (+) GERD Heme/Other (+) anemia, refusal of blood products Other ROS: Patient Active Problem List: Mental disability [F79] Caries [K02.9] Physical Exam Airway Comment: Unable to assess due to patient cooperation Dental Pulmonary - pulmonary exam normal Comment: Chest clear to auscultation bilaterally Cardiovascular - cardiovascular exam normal Comment: RRR with S1S2; no murmurs, gallops, or rubs Neuro - neurological exam normal Comment: Awake, alert, oriented, No motor deficits and sensation grossly intact Plan Anesthesia plan: general; (ETT) Anesthesia risks / alternatives discussed pre-op Questions answered / anesthesia plan accepted Past medical history, surgical history, allergies, and medications reviewed. Pertinent laboratory tests, EKG, imaging, and consults reviewed and I have personally seen and evaluated the patient, repeating anthony portions of the history and physical examination. Attestation: Anesthesia options were discussed with the patient and/or legal authorization representative. The risks, benefits and alternatives were reviewed. Questions regarding anesthesia were answered. Patient and/or legal authorization representative knows such anesthetics and procedures may be performed by Resident physicians, Certified Anesthesiologist Assistants, or Certified Nurse Anesthetists under the supervision of a physician. The patient /or the patient's legal authorization representative agree with the plan for anesthesia. Comment: Consent obtained from patient's mother over the phone. Also explained what to expect from anesthesia to patient's caregiver from skilled nursing [facility] Social History Socioeconomic History Marital status: Single Social History Narrative Resident at [facility]. Mom is guardian CBC 06/02/2024 3:03 PM WBC 7.0 RBC 4.49 Hgb 13.8 Hct 42.5 MCV 95 RDW 14.5 Plt 419 BMP (last 1 year, up to 8 values) 06/02/2024 3:03 PM Na 144 K 4.8 Cl 109 CO2 22 Gap 18 Glu 126 BUN 14 Cr 0.61 Ca 10.5 eGFR 121 PT/INR No lab values to display. No results found for: A1C , HBA1C Current Outpatient Medications Medication Instructions albuterol (PROVENTIL) 2.5 mg, EVERY 4 HOURS PRN atorvastatin (LIPITOR) 10 MG tablet No dose, route, or frequency recorded. budesonide (PULMICORT) 0.5 mg, 2 TIMES DAILY cloBAZam (ONFI) 10 mg, 2 TIMES DAILY clonazePAM 0.25 MG TBDP 1 Tablet, 2 TIMES DAILY PRN diazePAM (DIASTAT) 10 MG rectal gel 1 Each, PRN docusate sodium (COLACE) 100 MG capsule 2 Capsules, Every morning felbamate (FELBATOL) 400 MG tablet 3 TIMES DAILY fenofibrate (TRICOR) 145 mg, DAILY fluticasone (FLONASE) 50 mcg/act nasal inhaler 2 Sprays, DAILY furosemide (LASIX) 20 mg, DAILY glycopyrrolate (ROBINUL) 1 mg, 2 TIMES DAILY ipratropium-albuterol (DUO-NEB) 0.5-2.5 (3) MG/3ML nebulizer solution 3 mL, 3 times daily Lactulose Encephalopathy (Enulose) 10 GM/15ML SOLN Take by mouth. 90 mL at 8am, 12pm and 8pm levetiracetam (Keppra) 750 MG tablet 2 Tablets, 2 TIMES DAILY levETIRAcetam (KEPPRA) 500 mg, AT BEDTIME levothyroxine (SYNTHROID) 150 mcg, DAILY linaclotide (LINZESS) 145 mcg, DAILY loratadine (CLARITIN) 10 mg, DAILY Magnesium Oxide (MAG-OX 400 ORAL) 1 Tablet, DAILY montelukast (SINGULAIR) 10 mg, AT BEDTIME Nutritional Supplements (boost) Take by mouth. 1 can tid omeprazole (PRILOSEC) 40 mg, DAILY OXcarbazepine (TRILEPTAL) 300 mg, 2 TIMES DAILY oxcarbazepine (TRILEPTAL) 600 mg, 2 TIMES DAILY polyethylene glycol (MIRALAX) 17 g, DAILY Prolia 60 mg rifAXIMin (XIFAXAN) 550 mg, 2 TIMES DAILY senna (SENOKOT) 8.6 MG tablet 1 Tablet, 2 TIMES DAILY PRN tamsulosin (FLOMAX) 0.4 mg, DAILY Vitamin D3 125 mcg, DAILY Normal [facility] Anesthesia [facility] 06-12-2024 Park Worker Authentication Interface Message Text Patient taken to PACU. Patient was drowsy, comfortable, and stable on arrival. Anesthesia Transfer of Care Note Past Medical History: Past Medical History: Diagnosis Date Candidiasis Chronic lung disease Chronic sinusitis Gastroesophageal reflux disease without esophagitis Hepatic encephalopathy (HCC) Hypersalivation Intellectual disability Intrinsic eczema Lower urinary tract symptoms (LUTS) Meteorism Osteoporosis Other constipation Other dysphagia Other hyperlipidemia Other specified attention deficit hyperactivity disorder (ADHD) Other specified hypothyroidism Perennial allergic rhinitis Seizure disorder (HCC) Small intestinal bacterial overgrowth (SIBO) Spastic quadriparesis (HCC) Sleep Apnea/Positive STOP-BANG: No Problem List: Patient Active Problem List: Mental disability [F79] Past Surgical History: Review of patient's past surgical history indicates: DENTAL RESTORATIONS (02/29/2020) Procedure: DENtal, xrays, examinations, 1 extraction; Surgeon: Ap Scott DDS; Location: [facility] Surgery [place]; Service: Dental Allergies: Promethazine, Amoxicillin-pot clavulanate, Pertussis vaccines, and Phenytoin sodium extended Basic Operating Room Facts: Surgeon(s): Ap Scott DDS Anesthesiologist: Blake Green MD CAA: Kimberly Stevens CAA Anesthesia Student: Alma Us DENTAL EXAM, XRAYS AND CLEANING UNDER ANESTHESIA (Bilateral: Mouth) Intraoperative Events: No acute event ASA: 3 EBL: Not documented Urine Not documented Lactated Ringers and NaCl 0.9%: Fluid Totals (Filter: LR and NaCl 0.9% Medications Shown) Medication Calculated Total Lactated Ringers 500 mL / 1 bag Cell Saver: Not documented Blood Volume Values: Blood Products None MTP Blood: MTP PRBC: Not documented MTP FFP: Not documented MTP PLT: Not documented MTP Cryo: Not documented MTP Whole Blood: Not documented Current Vasoactive Medications: {Vasoactive Medications: None Lines, Drains, Airways Peripheral IV Access: 06/12/24 0735 22 gauge Right Hand (Active) Site Assessment WNL;Dressing intact 06/12/24 0736 Infusion Status Port #1 Infusing 06/12/2436 Airway Insertion Details [REMOVED] Advanced Airway: ETT, Nasal;Cuffed #7 (Removed) 06/12/24 0745 Pre-Oxygenation/ Induction: Mask Rapid Sequence Induction?: Mask Ventilation: Easy;w/nasal airway Blade Type: Mac Blade Size: 4 Visualization: Grade 1 Airway Type: ETT, Nasal;Cuffed Airway Size: #7 Post Insertion Assessment: Confirmation: Equal bilateral breath sounds, CO2 confirmed # Attempts >1: Special Equipment: Les forceps Present on Admission?: Previously Removed / Not Present: Removal Reason: Not Removed at Discharge: Removed 06/12/24824 Location (cm) 25 06/12/24745 Measured from: Naris 06/12/24745 Secured via: Taped 06/12/24745 Site Assessment WNL 06/12/24745 All non-working IVs have been removed: N/A Laboratory Data: CBC (last 3 years, up to 8 values) 06/02/2024 3:03 PM WBC 7.0 RBC 4.49 Hgb 13.8 Hct 42.5 MCV 95 RDW 14.5 Plt 419 BMP (last 3 years, up to 8 values) 06/02/2024 3:03 PM Na 144 K 4.8 Cl 109 CO2 22 Gap 18 Glu 126 BUN 14 Cr 0.61 Ca 10.5 eGFR 121 Basic Metabolic Panel No lab values to display. No results found for: INR No result for BNP LFT's (last 3 years, up to 8 values) No lab values to display. Arterial Blood Gases None Hand off Completed: Yes 1. The patient was identified. 2. Pertinent medical history was relayed. 3. A brief discussion was had about any pertinent surgical/ procedural issues. 4. Intraoperative/ anesthetic management issue and concerns were discussed. 5. Plans for the early post-operative period relayed. 6. An opportunity for questions and acknowledgment of understanding of the report was received. ILIANA Clements [facility] Blood Attestationon 06-12-19 Park Worker Authentication Interface Message Text Blood Attestation: REFUSAL OF BLOOD OR BLOOD COMPONENTS: The patient and/or legal authorization representative has been explained the need for transfusion of blood and/or blood components. The risks, benefits and alternatives have been explained. Questions concerning the transfusion of blood or blood components have been asked and answered. The patient and/or legal authorization representative have REFUSED TO CONSENT transfusion of blood or blood products. PER PATIENT'S MOTHER Normal [facility] Brief Operative Noteon 06-12 Park Worker Authentication Interface Message Text Brief Operative Note P[facility] OR 3 Parish Lopez 44 year old male Surgical Contact Serial Number: [id number] Preoperative Diagnosis: Pre-op Diagnosis * Caries [K02.9] Mental disability COPD Hyperthyroidism Seizures HLD GERD Postoperative Diagnosis: Mental disability COPD Hyperthyroidism Seizures HLD GERD Procedures: Full mouth x-rays [61083] Comprehensive Exam [[id number]] Dental prophylaxis [02750] Surgeon(s): Surgeon(s): Ap Scott DDS Staff: Prosthetics Assistant Nurse: Felisha Moore Anesthesia: General Anesthesiologist: Blake Green MD Anesthesia Staff: Kimberly Stevens CAA Specimen(s): * No specimens in log * Estimated Blood Loss: less than 5 cc Lines/Drains: * No LDAs found * Temporarily Retained Foreign Object: No Findings: Normal Complications: None Status at end of surgery: Stable Activity: Ad Ana and weightbearing as tolerated Surgical wound class: No wound. Patient Class: Outpatient Surgery. Is this a patient scheduled as an outpatient that needs to be admitted as an inpatient? No Dr. Beatris Thompson: Dr. Ap Scott was present in the OR for the critical portion of the procedure and procedure sign-out. Signed by Beatris Thompson DDS 06/12/2024 7:03 AM Normal [facility] OP Noteon 06-12-2024 Park Worker Authentication Interface Message Text Operative Note P[facility] OR 3 Parish Lopez 44 year old male Surgical Contact Serial Number: [id number] Preoperative Diagnosis: Pre-op Diagnosis * Caries [K02.9] Mental disability COPD Hyperthyroidism Seizures HLD GERD Postoperative Diagnosis: Mental Disability COPD Hyperthyroidism Seizures HLD GERD Procedures: Full mouth x-rays [55067] Comprehensive Exam [[id number]] Dental prophylaxis [04939] Surgeon: Ap Scott DDS [employer] Surgeon: Hansel Burgess DDS; Beatris Thompson DMD Anesthesia: General- Nasal ETT Estimated Blood Loss: <5 cc IV Fluids: 300 cc Urine Output: Not measured. Findings: The patient was brought to the operating room and placed in the supine position on the operating room table. Following satisfactory induction of GA. The patient was intubated with a nasal endotracheal tube. He was then prepped and drapped in the usual sterile fashion for dental procedures. Full mouth series were then taken and an oral examination was completed. A moistened throat pack was then placed. Full mouth scaling was then performed. The radiographs were examined by the attending and the resident and used in conjunction with th oral exam to formulate a treatment plan. The restorative aspect of the treatment plan included the following: no restorations indicated The surgical aspect of the treatment plan included the following extraction(s) and/or root removal: no teeth are indicated for extraction The remaining dentition was then polished with prophy paste. The oral cavity was irrigated and suctioned then the throat pack was removed. Fluoride treament was NOT placed on the remaining dentition per legal guardian's request. The patient tolerated the procedure well was extubated in the operating room, and taken to the PACU in stable condition. Complications: None Status at end of surgery: Stable Medications: Outpatient Medications Marked as Taking for the 06/12/24 encounter (Hospital Encounter) Medication Sig Dispense Refill Lactulose Encephalopathy (Enulose) 10 GM/15ML SOLN Take by mouth. 90 mL at 8am, 12pm and 8pm diazePAM (DIASTAT) 10 MG rectal gel Insert 1 Each in the rectum as needed for Other (for 3 or more seizures in 2 hours; may repeat in 2 hours as needed). clonazePAM 0.25 MG TBDP Take 1 Tablet by mouth 2 times daily as needed for Other. For cluster of 5 seizures albuterol (PROVENTIL) (2.5 MG/3ML) 0.083% nebulizer solution Use 2.5 mg via nebulizer every 4 hours as needed for Wheezing. Cholecalciferol (Vitamin D3) 125 MCG (5000 UT) CAPS Take 125 mcg by mouth daily. tamsulosin (Flomax) 0.4 MG capsule Take 0.4 mg by mouth daily. polyethylene glycol (MIRALAX) packet Dissolve 17 g in 8 ounces of liquid and drink daily. OXcarbazepine (Trileptal) 300 MG tablet Take 300 mg by mouth 2 times daily. omeprazole (PRILOSEC) 40 MG capsule Take 40 mg by mouth daily. montelukast (Singulair) 10 MG tablet Take 10 mg by mouth at bedtime. Magnesium Oxide (MAG-OX 400 ORAL) Take 1 Tablet by mouth daily. loratadine (CLARITIN) 10 MG tablet Take 10 mg by mouth daily. linaclotide (Linzess) 145 MCG CAPS capsule Take 145 mcg by mouth daily. levothyroxine (SYNTHROID) 150 MCG tablet Take 150 mcg by mouth daily. levetiracetam (Keppra) 750 MG tablet Take 2 Tablets by mouth 2 times daily. levETIRAcetam (Keppra) 500 MG tablet Take 500 mg by mouth at bedtime. ipratropium-albuterol (DUO-NEB) 0.5-2.5 (3) MG/3ML nebulizer solution Use 3 mL via nebulizer 3 times a day. glycopyrrolate (ROBINUL) 1 MG tablet Take 1 mg by mouth 2 times daily. furosemide (LASIX) 20 MG tablet Take 20 mg by mouth daily. fluticasone (FLONASE) 50 mcg/act nasal inhaler Use 2 Sprays in each nostril daily. fenofibrate (TRICOR) 145 MG tablet Take 145 mg by mouth daily. felbamate (FELBATOL) 400 MG tablet Take by mouth 3 times daily. Take 1 tab at 8am, 12pm and 8pm docusate sodium (COLACE) 100 MG capsule Take 2 Capsules by mouth in the morning. cloBAZam (ONFI) 10 MG tablet Take 10 mg by mouth 2 times daily. budesonide (PULMICORT) 0.5 MG/2ML nebulizer suspension Use 0.5 mg via nebulizer 2 times daily. Nutritional Supplements (boost) Take by mouth. 1 can tid atorvastatin (LIPITOR) 10 MG tablet Dictated by: Beatris Thompson DDS: Dr. Ap Scott DDS was present for the critical portions of the procedure. Beatris Thompson DDS 06/12/2024 7:07 AM Normal [facility] Progress Noteson 06-12-2024 Park Worker Authentication Interface Message Text ----- Wednesday, June 12, 2024 at 8:41:56 AM ----- ----- Provider: [id number] - Ap Adams DDS -- Clinic: [facility] ----- [facility], pt is ready for tx. [place], only scaling was done. __ Operative Note P[facility] OR 3 Parish Lopez 44 year old male Surgical Contact Serial Number: [id number] Preoperative Diagnosis: Pre-op Diagnosis * Caries [K02.9] Mental disability COPD Hyperthyroidism Seizures HLD GERD Postoperative Diagnosis: Mental Disability COPD Hyperthyroidism Seizures HLD GERD Procedures: Full mouth x-rays [75976] Comprehensive Exam [[id number]] Dental prophylaxis [77414] Surgeon: Ap Scott DDS [employer] Surgeon: Hansel Burgess DDS; Beatris Thompson DMD Anesthesia: General- Nasal ETT Estimated Blood Loss: <5 cc IV Fluids: 300 cc Urine Output: Not measured. Findings: The patient was brought to the operating room and placed in the supine position on the operating room table. Following satisfactory induction of GA. The patient was intubated with a nasal endotracheal tube. He was then prepped and drapped in the usual sterile fashion for dental procedures. Full mouth series were then taken and an oral examination was completed. A moistened throat pack was then placed. Full mouth scaling was then performed. The radiographs were examined by the attending and the resident and used in conjunction with th oral exam to formulate a treatment plan. The restorative aspect of the treatment plan included the following: no restorations indicated The surgical aspect of the treatment plan included the following extraction(s) and/or root removal: no teeth are indicated for extraction The remaining dentition was then polished with prophy paste. The oral cavity was irrigated and suctioned then the throat pack was removed. Fluoride treament was NOT placed on the remaining dentition per legal guardian's request. The patient tolerated the procedure well was extubated in the operating room, and taken to the PACU in stable condition. Complications: None Status at end of surgery: Stable Dictated by: Beatris Thompson DDS: Dr. Ap Scott DDS was present for the critical portions of the procedure. Beatris Thompson DDS 06/12/2024 7:07 AM ----- Signed on Wednesday, June 12, 2024 at 8:46:14 AM ----- ----- Provider: Julia Adams DDS -- Clinic: [facility] ----- Normal [facility] Telephone Encounteron 2024 Park Worker Authentication Interface Message Text Informed Consent for dental surgery AND Anesthesia consent obtained and scanned into EPIC. Scheduled for surgery 06/12/2024. Normal [facility] Addendum Noteon 06-02-2024 Park Worker Authentication Interface Message Text Addended by: BOYD HARRY on: 06/02/2024 05:54 PM Modules accepted: Orders Normal [facility] BASIC METABOLIC PANELon 05-20 Anion gap [Moles/Vol] 18 mmol/L Normal 10-20 [facility] Comment on above: Performed By: #### C H8 ####S PATHOLOGY [id number] [place], [place], Calcium [Mass/Vol] 10.5 mg/dL High 8.6-10.3 The [facility] Comment on above: Performed By: #### C H8 ####MHS PATHOLOGY [id number] [place], [place], Chloride [Moles/Vol] 109 mmol/L High 98-107 [facility] Comment on above: Performed By: #### C H8 ####MHS PATHOLOGY [id number] [place], CO2 [Moles/Vol] 22 mmol/L Normal 21-31 [facility] Comment on above: Performed By: #### C H8 ####MHS PATHOLOGY [id number] [place], Creatinine [Mass/Vol] 0.61 mg/dL Low 0.70-1.30 [facility] Comment on above: Performed By: #### C H8 ####MHS PATHOLOGY [id number] [place], ESTIMATED GFR (CKD-EPI) 121 mL/min/1.73sqm Normal >=60 [facility] Comment on above: Result Comment: 2020 CKD EPI Equation using Creatinine without Race Comment: Estimated glomerular filtration rate (eGFR) is calculated without a race coefficient. Values should be interpreted in the context of the patient's full clinical presentation. Reference: 1. Ata C, Bia M, Beata FARIAS, et al.. A Unifying Approach for GFR Estimation: Recommendations of the NKF-ASN Task Force on Reassessing the Inclusion of Race in Diagnosing Kidney Disease. [place] Journal of Kidney Diseases 2021;79(2):268-88.e1. 2. N Engl J Med 1 Vol. 385 Issue 19 Pages 9364-7436 Performed By: #### C H8 ####S PATHOLOGY [id number] [place], [place], Glucose [Mass/Vol] 126 mg/dL High 74-109 The [facility] Comment on above: Performed By: #### C H8 ####S PATHOLOGY [id number] [place], Potassium [Moles/Vol] 4.8 mmol/L Normal 3.5-5.0 The [facility] Comment on above: Performed By: #### C H8 ####S PATHOLOGY [id number] [place], Sodium [Moles/Vol] 144 mmol/L Normal 136-145 The [facility] Comment on above: Performed By: #### C H8 ####S PATHOLOGY [id number] [place], Urea nitrogen [Mass/Vol] 14 mg/dL Normal 7-25 The [facility] Comment on above: Performed By: #### C H8 ####S PATHOLOGY [id number] [place], COMPLETE BLOOD COUNTon 06-02 Erythrocyte distribution width (RBC) [Ratio] 14.5 % Normal 11.5-14.5 The [facility] Comment on above: Performed By: #### C BC #### S PATHOLOGY LABORATORY [address] [place], [place], Hematocrit (Bld) [Volume fraction] 42.5 % Normal 41.0-53.0 The [facility] Comment on above: Performed By: #### C BC #### [facility] PATHOLOGY LABORATORY [address] [place], [place], Hemoglobin (Bld) [Mass/Vol] 13.8 g/dL Low 13.9-16.3 The [facility] Comment on above: Performed By: #### C BC #### [facility] PATHOLOGY LABORATORY [address] [place], [place], MCH (RBC) [Entitic mass] 30.7 pg Normal 26.0-34.0 The [facility] Comment on above: Performed By: #### C BC #### [facility] PATHOLOGY LABORATORY [address] [place], [place], MCHC (RBC) [Mass/Vol] 32.4 g/dL Normal 32.0-35.9 The [facility] Comment on above: Performed By: #### C BC #### [facility] PATHOLOGY LABORATORY [address] [place], [place], MCV (RBC) [Entitic vol] 95 fL Normal 80-100 The [facility] Comment on above: Performed By: #### C BC #### [facility] PATHOLOGY LABORATORY [address] [place], [place], Platelet mean volume (Bld) [Entitic vol] 9.3 fL Normal 7.5-11.2 The [facility] Comment on above: Performed By: #### C BC #### [facility] LABOR[facility] [address] [place], [place], Platelets (Bld) [#/Vol] 419 10*3/uL High 150-400 The [facility] Comment on above: Performed By: #### C BC #### [facility] PATH[facility] LABORATORY [address] [place], [place], RBC (Bld) [#/Vol] 4.49 10*6/uL Low 4.50-5.90 [facility] Comment on above: Performed By: #### C BC #### [facility] PATHOLOG[facility] LABORATORY [address] [place], [place], WBC (Bld) [#/Vol] 7.0 10*3/uL Normal 4.5-11.5 The [facility] Comment on above: Performed By: #### C #### [facility] PATH[facility] LABORATORY [address] [place], [id number] Patient Instructionson 06-02 Park Worker Authentication Interface Message Text RECOMMENDATIONS: Patient was instructed on the following: Nothing by mouth after midnight before surgery except following meds with sip of water on AM of surgery: as per anesthesia Stop aspirin 7 days before surgery Stop NSAID 5 days before surgery Stop Vitamin E 10 days prior to surgery Stop alternative/herbal medication 10 days before surgery Boyd Harry MD Normal [facility] Progress Noteson 06-02-2024 Park Worker Authentication Interface Message Text Blood pressure 154/73, pulse 115, temperature 98.9 ???F (37.2 ???C), resp. rate 16, weight 139 lb (63 kg). Medications/Allergies Reviewed CURRENT MEDICATIONS Current Outpatient Medications Medication Sig Dispense Refill senna (SENOKOT) 8.6 MG tablet Take 1 Tablet by mouth 2 times daily as needed for Constipation. diazePAM (DIASTAT) 10 MG rectal gel Insert 1 Each in the rectum as needed for Other (for 3 or more seizures in 2 hours; may repeat in 2 hours as needed). clonazePAM 0.25 MG TBDP Take 1 Tablet by mouth 2 times daily as needed for Other. For cluster of 5 seizures albuterol (PROVENTIL) (2.5 MG/3ML) 0.083% nebulizer solution Use 2.5 mg via nebulizer every 4 hours as needed for Wheezing. rifAXIMin (Xifaxan) 550 MG tablet Take 550 mg by mouth 2 times daily. Cholecalciferol (Vitamin D3) 125 MCG (5000 UT) CAPS Take 125 mcg by mouth daily. tamsulosin (Flomax) 0.4 MG capsule Take 0.4 mg by mouth daily. denosumab (Prolia) 60 MG/ML injection Inject 60 mg under the skin. Every 6 months polyethylene glycol (MIRALAX) packet Dissolve 17 g in 8 ounces of liquid and drink daily. oxcarbazepine (TRILEPTAL) 600 MG tablet Take 600 mg by mouth 2 times daily. OXcarbazepine (Trileptal) 300 MG tablet Take 300 mg by mouth 2 times daily. omeprazole (PRILOSEC) 40 MG capsule Take 40 mg by mouth daily. montelukast (Singulair) 10 MG tablet Take 10 mg by mouth at bedtime. Magnesium Oxide (MAG-OX 400 ORAL) Take 1 Tablet by mouth daily. loratadine (CLARITIN) 10 MG tablet Take 10 mg by mouth daily. linaclotide (Linzess) 145 MCG CAPS capsule Take 145 mcg by mouth daily. levothyroxine (SYNTHROID) 150 MCG tablet Take 150 mcg by mouth daily. levetiracetam (Keppra) 750 MG tablet Take 2 Tablets by mouth 2 times daily. levETIRAcetam (Keppra) 500 MG tablet Take 500 mg by mouth at bedtime. ipratropium-albuterol (DUO-NEB) 0.5-2.5 (3) MG/3ML nebulizer solution Use 3 mL via nebulizer 3 times a day. glycopyrrolate (ROBINUL) 1 MG tablet Take 1 mg by mouth 2 times daily. furosemide (LASIX) 20 MG tablet Take 20 mg by mouth daily. fluticasone (FLONASE) 50 mcg/act nasal inhaler Use 2 Sprays in each nostril daily. fenofibrate (TRICOR) 145 MG tablet Take 145 mg by mouth daily. felbamate (FELBATOL) 400 MG tablet Take by mouth 3 times daily. Take 1 tab at 8am, 12pm and 8pm docusate sodium (COLACE) 100 MG capsule Take 2 Capsules by mouth in the morning. cloBAZam (ONFI) 10 MG tablet Take 10 mg by mouth 2 times daily. budesonide (PULMICORT) 0.5 MG/2ML nebulizer suspension Use 0.5 mg via nebulizer 2 times daily. Nutritional Supplements (boost) Take by mouth. 1 can tid atorvastatin (LIPITOR) 10 MG tablet No current facility-administered medications for this visit. ALLERGIES Allergies Allergen Reactions Promethazine Unknown reaction Amoxicillin-Pot Clavulanate Unknown reaction Pertussis Vaccines Phenytoin Sodium Extended Unknown reaction Latex Allergy: No Surgical Procedure: dental restorations Surgeon: unknown Date of Surgery: 06/12/24 HISTORY: 44 year old with history of spastic quadriparesis, intellectual disability, seizure disorder, vns status, adhd, hypothyroidism, hld, par, osteoporosis, chronic sinusitis, dysphagia, bph, gerd, and constipation scheduled for above procedure My opinion was requested regarding this patient's complex presurgical evaluation. Pertinent Past Medical History and Surgical History Reviewed. Past Medical History: Diagnosis Date Candidiasis Chronic lung disease Chronic sinusitis Gastroesophageal reflux disease without esophagitis Hepatic encephalopathy (HCC) Hypersalivation Intellectual disability Intrinsic eczema Lower urinary tract symptoms (LUTS) Meteorism Osteoporosis Other constipation Other dysphagia Other hyperlipidemia Other specified attention deficit hyperactivity disorder (ADHD) Other specified hypothyroidism Perennial allergic rhinitis Seizure disorder (HCC) Small intestinal bacterial overgrowth (SIBO) Spastic quadriparesis (HCC) Past Surgical History: Procedure Laterality Date DENTAL RESTORATIONS Bilateral 02/29/2020 Procedure: DENtal, xrays, examinations, 1 extraction; Surgeon: Ap Scott DDS; Location: [facility] Surgery [place]; Service: Dental Pertinent Social History Reviewed Social History Tobacco Use Smoking Status Not on file Smokeless Tobacco Not on file Social History Substance and Sexual Activity Alcohol Use Not on file Social History Substance and Sexual Activity Drug Use Not on file Family History Reviewed. family history is not on file. 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 Normal [facility] THYROXINE (T4), FREEon 06-02 T4 F 0.70 ng/dL Normal 0.61-1.12 [facility] Comment on above: Performed By: #### T SH HS, T4 F #### [facility] [address] [place], [place], TSHon 06-02-2024 TSH 0.229 uIU/mL Low 0.450-5.330 [facility] [employer] [facility] Comment on above: Performed By: #### T SH HS, T4 F #### [facility] [address] [place], [place], No Panel Informationon 05-31 [facility] Progress Noteson 04-25-2024 Park Worker Authentication Interface Message Text Parent/guardian/patie nt was contacted for PSE AND OR scheduled -- confirmed information with mom, also informed mom importance of receiving PSE call -- if not received surgery will be canceled. 06/12/2024 ----- Thursday, April 25, 2024 at 2:35:00 PM ----- ----- Provider: [facility] -- Clinic: [place] ----- Normal [facility] No Panel Informationon 03-13 As in note [facility] Ambulatory Visit Summaryon 0 12-16-2022 Ambulatory Visit Summary PARISH LOPEZ :1980 Visit Date:12/16/2022 Ambulatory Visit Instructions Your Diagnosis Retractile testis Intermittent urinary incontinence Your Care Team Attending Physician - Abner BYRNE, Arline Little Primary Care Physician - FAM ACEVEDO DO This Is Your Medications List acetaminophen [...] (oxcarbazepine 600 mg Tab) polyethylene glycol 3350 ([id number] oral powder for reconstitution) polyethylene glycol 3350 (polyethylene glycol 3350 17 gram packet) rifaximin (Xifaxan 550 mg oral tablet) senna (Senna 8.6 mg oral tablet) sodium chloride nasal ([place] Saline Nasal Gel) tamsulosin Discharge Vitals Temperature (Temporal Artery) 36.7 ?C Heart Rate (Peripheral) 84 Blood Pressure 128/78 Height 158 cm Height 62 in Weight 107.9 kg Weight 237.38 lb BMI 43.22 What to do next You Need to Schedule the Following Appointments Follow Up with Abner BYREN, JUNIOR [place], [facility] When: Comments: PRN Where: [...] Application T (more content not included)... Normal [facility] Patient Educationon 12-17-19 23 Patient Education [...] provider. Document Revised: 08/14/2021 Document Reviewed: 08/14/2021 [employer] Patient Education ? 2022 [employer] Normal [facility] Physician Orderon 12-16-2022 Physician Order [id number] .[id number]:127 Normal [facility] RAD - Ultrasound Reporton RAD - Ultrasound Report [id number] .[id number]:127 Normal [facility] Urology Office/Clinic Noteon 12-16-2022 Urology Office/Clinic [...] of retractile testes. Pt currently resides in [facility]. CBC/CMP 08/01/22 1. Retractile testis [...] Eye-Both, QID atorvastatin, 10 mg, Oral, Daily [place] Saline Nasal Gel, Nasal, TID azelastine nasal 137 mcg/inh spray, 2 spray(s), Nasal, As (more content not included)... Normal [facility] Comment on above: Result Comment: Elec [...] GUANAKITO MEADE Date: 2022-08-04 18:50 Normal [facility] AMMONIAon 08-02-2022 Ammonia (P) [Moles/Vol] 87 umol/L Critically high [facility] Comment on above: Performed By: #### B MP #### [facility] [address] [place] [address] [address] Deepak Greenfield AMMONIAon 08-01-2022 Ammonia (P) [Moles/Vol] 42 umol/L Critically high [facility] Comment on above: Performed By: #### M G, CMP #### [facility] [address] [place], [place] [address] Dr. Deepak Greenfield CBC W MANUAL DIFFon 08-02-19 23 ATYPICAL LYMPH # 0.41 103/ul Normal [facility] Comment on above: Performed By: #### M G, CMP #### [facility] [address] [address] [address] Deepak Greenfield ATYPICAL LYMPH % 7 % Normal [facility] Comment on above: Performed By: #### M G, CMP #### [facility] [address] [place] [address] Dr. Deepak Greenfield BAND # 0.0 103/ul Normal 0.0-0.3 [facility] Comment on above: Performed By: #### M G, CMP #### [facility] [address] [place] [address] Dr. Deepak Greenfield BAND % 0 % Normal 0-5 [facility] Comment on above: Performed By: #### M G, CMP #### [facility] [address] [place] [address] Dr. Deepak Greenfield BASOM # 0.00 103/ul Normal 0.00-0.10 [facility] Comment on above: Performed By: #### M G, CMP #### [facility] [address] [place] [address] Dr. Deepak Greenfield BASOM % 0.0 % Critically low 0.2-2.0 [facility] Comment on above: Performed By: #### M G, CMP #### [facility] [address] [place] [address] Dr. Deepak Greenfield BLAST # Normal [facility] Comment on above: Performed By: #### M G, CMP #### [facility] [address] [place] [address] Dr. Deepak Greenfield BLAST % Normal [facility] Comment on above: Performed By: #### M G, CMP #### [facility] [address] [place] [address] Dr. Deepak Greenfield CORRECTED WBC Normal 4.0-11.0 [facility] Comment on above: Performed By: #### M G, CMP #### [facility] [address] [place] [address] Dr. Deepak Greenfield EOS # 0.06 103/ul Normal 0.00-0.70 [facility] Comment on above: Performed By: #### M G, CMP #### [facility] [address] [place] [address] Dr. Deepak Greenfield EOS% 1.0 % Normal 0.9-7.0 [facility] Comment on above: Performed By: #### M G, CMP #### [facility] [address] [address] [address] Deepak Greenfield HCT 37.6 % Critically low 42.0-54.0 [facility] Comment on above: Performed By: #### M G, CMP #### [facility] [address] [address] [address] Deepak Greenfield HGB 12.3 g/dl Critically low 14.0-18.0 [facility] Comment on above: Performed By: #### M G, CMP #### [facility] [address] [address] [address] Deepak Greenfield LYMPHM # 1.91 103/ul Normal 1.20-3.80 [facility] Comment on above: Performed By: #### M G, CMP #### [facility] [address] [address] [address] Deepak Greenfield LYMPHM% 33.0 % Normal 20.5-60.0 [facility] Comment on above: Performed By: #### M G, CMP #### [facility] [address] [address] [address] Deepak Greenfield MCH 31.7 pg Normal 25.9-34.0 [facility] Comment on above: Performed By: #### M G, CMP #### [facility] [address] [address] [address] Deepak Greenfield MCHC 32.7 g/dl Normal 29.9-35.2 [facility] Comment on above: Performed By: #### M G, CMP #### [facility] [address] [address] [address] Deepak Greenfield MCV 96.9 fL Critically high 80.0-94.0 [facility] Comment on above: Performed By: #### M G, CMP #### [facility] [address] [address] [address] Deepak Greenfield METAMYELOCYTE # Normal [facility] Comment on above: Performed By: #### M G, CMP #### [facility] [address] [address] [address] Deepak Greenfield METAMYELOCYTE % Normal [facility] Comment on above: Performed By: #### M G, CMP #### [facility] [address] [address] [address] Deepak Greenfield MONOM# 0.29 103/ul Critically low 0.30-0.80 [facility] Comment on above: Performed By: #### M G, CMP #### [facility] [address] [address] [address] Deepak Greenfield MONOM% 5.0 % Normal 1.7-12.0 [facility] Comment on above: Performed By: #### M G, CMP #### [facility] [address] [place] [address] Dr. Deepak Greenfield MPV 11.0 fL Normal 9.5-13.5 [facility] Comment on above: Performed By: #### M G, CMP #### [facility] [address] [place] [address] Dr. Deepak Greenfield MYELOCYTE # Normal [facility] Comment on above: Performed By: #### M G, CMP #### [facility] [address] [place] [address] Dr. Deepak Greenfield MYELOCYTE % Normal [facility] Comment on above: Performed By: #### M G, CMP #### [facility] [address] [place] [address] Dr. Deepak Greenfield NRBC Normal [facility] Comment on above: Performed By: #### M G, CMP #### [facility] [address] [place] [address] Dr. Deepak Greenfield PLT 208 103/ul Normal 150-450 [facility] Comment on above: Performed By: #### M G, CMP #### [facility] [address] [place] [address] Dr. Deepak Greenfield RBC 3.88 106/ul Critically low 4.70-6.10 [facility] Comment on above: Performed By: #### M G, CMP #### [facility] [address] [place] [address] Dr. Deepak Greenfield RDW 12.9 % Normal 11.0-15.0 [facility] Comment on above: Performed By: #### M G, CMP #### [facility] [address] [place] [address] Dr. Deepak Greenfield SEG # 3.13 103/ul Normal 1.40-6.50 [facility] Comment on above: Performed By: #### M G, CMP #### [facility] [address] [place] [address] Dr. Deepak Greenfield SEG % 54.0 % Normal 43.0-75.0 [facility] Comment on above: Performed By: #### M G, CMP #### [facility] [address] [place] [address] Dr. Deepak Greenfield STOMATOCYTES 3+ Normal [facility] Comment on above: Performed By: #### M G, CMP #### [facility] [address] [place] [address] Dr. Deepak Greenfield WBC 5.8 103/ul Normal 4.0-11.0 [facility] Comment on above: Performed By: #### M G, CMP #### [facility] [address] [place] [address] Dr. Deepak Greenfield PROF CHEM 8 (BAS METB)on Anion gap [Moles/Vol] 16.1 mmol/L Normal [facility] Comment on above: Performed By: #### B MP #### [facility] [address] [place] [address] Dr. Deepak Greenfield Calcium [Mass/Vol] 9.3 mg/dL Normal 8.5-10.1 [facility] Comment on above: Performed By: #### B MP #### [facility] [address] [place] [address] Dr. Deepak Greenfield Chloride [Moles/Vol] 105 mmol/L Normal 98-107 [facility] Comment on above: Performed By: #### B MP #### [facility] [address] [place] [address] Dr. Deepak Greenfield CO2 [Moles/Vol] 27.6 mmol/L Normal 21.0-32.0 [facility] Comment on above: Performed By: #### B MP #### [facility] [address] [address] [address] Deepak Greenfield Creatinine [Mass/Vol] 0.96 mg/dL Normal 0.70-1.30 [facility] Comment on above: Performed By: #### B MP #### [facility] [address] [address] [address] Deepak Greenfield EGFR-AF IRANIAN >60 Normal >=60 [facility] Comment on above: Performed By: #### B MP #### [facility] [address] [address] [address] Deepak Greenfield EGFR-NON AF IRANIAN >60 Normal >=60 [facility] Comment on above: Performed By: #### B MP #### [facility] [address] [address] [address] Deepak Greenfield Glucose [Mass/Vol] 160 mg/dL Critically high 74-106 [facility] Comment on above: Performed By: #### B MP #### [facility] [address] [address] [address] Deepak Greenfield Potassium [Moles/Vol] 3.7 mmol/L Normal 3.5-5.1 [facility] Comment on above: Performed By: #### B MP #### [facility] [address] [address] [address] Deepak Greenfield Sodium [Moles/Vol] 145 mmol/L Normal 136-145 [facility] Comment on above: Performed By: #### B MP #### [facility] [address] [address] [address] Deepak Greenfield Urea nitrogen [Mass/Vol] 5.0 mg/dL Critically low 7.0-18.0 [facility] Comment on above: Performed By: #### B MP #### [facility] [address] [address] [address] Deepak Greenfield Urea nitrogen/Creatinine [Mass ratio] 5.2 mg/mg Normal [facility] Comment on above: Performed By: #### B MP #### [facility] [address] [place] [address] Dr. Deepak Greenfield AMMONIAon 07-31-2022 Ammonia (P) [Moles/Vol] 94 umol/L Critically high 11-32 [facility] Comment on above: Performed By: #### M G, CMP #### [facility] [address] [place] [address] Dr. Deepak Greenfield CBC AUTO DIFFon 07-31-2022 BASO # 0.0 103/ul Normal 0.0-0.1 [facility] Comment on above: Performed By: #### B MP #### [facility] [address] [place] [address] Dr. Deepak Greenfield Basophils/100 WBC (Bld) 0.1 % Critically low 0.2-2.0 [facility] Comment on above: Performed By: #### B MP #### [facility] [address] [place] [address] Dr. Deepak Greenfield EO # 0.0 103/ul Normal 0.0-0.7 [facility] Comment on above: Performed By: #### B MP #### [facility] [address] [place] [address] Dr. Deepak Greenfield Eosinophils/100 WBC (Bld) 0.0 % Critically low 0.9-7.0 [facility] Comment on above: Performed By: #### B MP #### [facility] [address] [place] [address] Dr. Deepak Greenfield Erythrocyte distribution width (RBC) [Ratio] 13.1 % Normal 11.0-15.0 [facility] Comment on above: Performed By: #### B MP #### [facility] [address] [place] [address] Dr. Deepak Greenfield Hematocrit (Bld) [Volume fraction] 32.4 % Critically low 42.0-54.0 [facility] Comment on above: Performed By: #### B MP #### [facility] [address] [place] [address] Dr. Deepak Greenfield Hemoglobin (Bld) [Mass/Vol] 10.9 g/dL Critically low 14.0-18.0 [facility] Comment on above: Performed By: #### B MP #### [facility] [address] [place] [address] Dr. Deepak Greenfield IG # 0.02 10e3/ul Normal 0.00-0.03 [facility] Comment on above: Performed By: #### B MP #### [facility] [address] [place] [address] Dr. Deepak Greenfield IG % 0.3 % Normal 0.0-0.5 [facility] Comment on above: Performed By: #### B MP #### [facility] [address] [place] [address] Dr. Deepak Greenfield LYMPH # 2.7 103/ul Normal 1.2-3.8 [facility] Comment on above: Performed By: #### B MP #### [facility] [address] [place] [address] Dr. Deepak Greenfield Lymphocytes/100 WBC (Bld) 38.9 % Normal 20.5-60.0 [facility] Comment on above: Performed By: #### B MP #### [facility] [address] [place] [address] Dr. Deepak Greenfield MANUAL DIFF REQ NO Normal [facility] Comment on above: Performed By: #### B MP #### [facility] [address] [place] [address] Dr. Deepak Greenfield MCH (RBC) [Entitic mass] 32.3 pg Normal 25.9-34.0 [facility] Comment on above: Performed By: #### B MP #### [facility] [address] [place] [address] Dr. Deepak Greenfield MCHC (RBC) [Mass/Vol] 33.6 g/dL Normal 29.9-35.2 [facility] Comment on above: Performed By: #### B MP #### [facility] [address] [place] [address] Dr. Deepak Greenfield MCV (RBC) [Entitic vol] 96.1 fL Critically high 80.0-94.0 [facility] Comment on above: Performed By: #### B MP #### [facility] [address] [address] [address] Deepak Greenfield MONO # 0.3 103/ul Normal 0.3-0.8 [facility] Comment on above: Performed By: #### B MP #### [facility] [address] [address] [address] Deepak Greenfield Monocytes/100 WBC (Bld) 4.9 % Normal 1.7-12.0 [facility] Comment on above: Performed By: #### B MP #### [facility] [address] [place] [address] Dr. Deepak Greenfield NEUT # 3.9 103/ul Normal 1.4-6.5 [facility] Comment on above: Performed By: #### B MP #### [facility] [address] [place] [address] Dr. Deepak Greenfield Neutrophils/100 WBC (Bld) 55.8 % Normal 43.0-75.0 [facility] Comment on above: Performed By: #### B MP #### [facility] [address] [address] [address] Deepak Greenfield Platelet mean volume (Bld) [Entitic vol] 9.7 fL Normal 9.5-13.5 [facility] Comment on above: Performed By: #### B MP #### [facility] [address] [place] [address] Dr. Deepak Greenfield PLT 296 103/ul Normal 150-450 [facility] Comment on above: Performed By: #### B MP #### [facility] [address] [address] [address] Deepak Greenfield RBC 3.37 106/ul Critically low 4.70-6.10 [facility] Comment on above: Performed By: #### B MP #### [facility] [address] [address] [address] Deepak Greenfield WBC 7.0 103/ul Normal 4.0-11.0 [facility] Comment on above: Performed By: #### B MP #### [facility] [address] [address] [address] Deepak Greenfield PROF CHEM 8 (BAS METB)on Anion gap [Moles/Vol] 14.9 mmol/L Normal [facility] Comment on above: Performed By: #### C BC #### [facility] [address] [address] [address] Deepak Greenfield Calcium [Mass/Vol] 8.8 mg/dL Normal 8.5-10.1 [facility] Comment on above: Performed By: #### C BC #### [facility] [address] [address] [address] Deepak Greenfield Chloride [Moles/Vol] 105 mmol/L Normal 98-107 [facility] Comment on above: Performed By: #### C BC #### [facility] [address] [place] [address] Dr. Deepak Greenfield CO2 [Moles/Vol] 26.4 mmol/L Normal 21.0-32.0 [facility] Comment on above: Performed By: #### C BC #### [facility] [address] [place] [address] Dr. Deepak Greenfield Creatinine [Mass/Vol] 0.70 mg/dL Normal 0.70-1.30 [facility] Comment on above: Performed By: #### C BC #### [facility] [address] [place] [address] Dr. Deepak Greenfield EGFR-AF IRANIAN >60 Normal >=60 [facility] Comment on above: Performed By: #### C BC #### [facility] [address] [place] [address] Dr. Deepak Greenfield EGFR-NON AF IRANIAN >60 Normal >=60 [facility] Comment on above: Performed By: #### C BC #### [facility] [address] [place] [address] Dr. Deepak Greenfield Glucose [Mass/Vol] 129 mg/dL Critically high 74-106 [facility] Comment on above: Performed By: #### C BC #### [facility] [address] [address] [address] Deepak Greenfield Potassium [Moles/Vol] 4.3 mmol/L Normal 3.5-5.1 [facility] Comment on above: Performed By: #### C BC #### [facility] [address] [place] [address] Dr. Deepak Greenfield Sodium [Moles/Vol] 142 mmol/L Normal 136-145 [facility] Comment on above: Performed By: #### C BC #### [facility] [address] [place] [address] Dr. Deepak Greenfield Urea nitrogen [Mass/Vol] 6.0 mg/dL Critically low 7.0-18.0 [facility] Comment on above: Performed By: #### C BC #### [facility] [address] [place] [address] Dr. Deepak Greenfield Urea nitrogen/Creatinine [Mass ratio] 8.6 mg/mg Normal [facility] Comment on above: Performed By: #### C BC #### [facility] [address] [place] [address] Dr. Deepak Greenfield AMMONIAon 07-30-2022 Ammonia (P) [Moles/Vol] 64 umol/L Critically high 11-32 [facility] Comment on above: Performed By: #### C BC #### [facility] [address] [place] [address] Dr. Deepak Greenfield CBC AUTO DIFFon 07-30-2022 BASO # 0.0 103/ul Normal 0.0-0.1 [facility] Comment on above: Performed By: #### I NFLUAB #### [facility] [address] [place] [address] Dr. Deepak Greenfield Basophils/100 WBC (Bld) 0.0 % Critically low 0.2-2.0 [facility] Comment on above: Performed By: #### I NFLUAB #### [facility] [address] [place] [address] Dr. Deepak Greenfield EO # 0.0 103/ul Normal 0.0-0.7 [facility] Comment on above: Performed By: #### I NFLUAB #### [facility] [address] [place] [address] Dr. Deepak Greenfield Eosinophils/100 WBC (Bld) 0.0 % Critically low 0.9-7.0 [facility] Comment on above: Performed By: #### I NFLUAB #### [facility] [address] [place] [address] Dr. Deepak Greenfield Erythrocyte distribution width (RBC) [Ratio] 13.1 % Normal 11.0-15.0 [facility] Comment on above: Performed By: #### I NFLUAB #### [facility] [address] [place] [address] Dr. Deepak Greenfield Hematocrit (Bld) [Volume fraction] 31.4 % Critically low 42.0-54.0 [facility] Comment on above: Performed By: #### I NFLUAB #### [facility] [address] [place] [address] Dr. Deepak Greenfield Hemoglobin (Bld) [Mass/Vol] 10.5 g/dL Critically low 14.0-18.0 [facility] Comment on above: Performed By: #### I NFLUAB #### [facility] [address] [place] [address] Dr. Deepak Greenfield IG # 0.01 10e3/ul Normal 0.00-0.03 [facility] Comment on above: Performed By: #### I NFLUAB #### [facility] [address] [place] [address] Dr. Deepak Greenfield IG % 0.2 % Normal 0.0-0.5 [facility] Comment on above: Performed By: #### I NFLUAB #### [facility] [address] [place] [address] Dr. Deepak Greenfield LYMPH # 1.5 103/ul Normal 1.2-3.8 [facility] Comment on above: Performed By: #### I NFLUAB #### [facility] [address] [place] [address] Dr. Deepak Greenfield Lymphocytes/100 WBC (Bld) 27.5 % Normal 20.5-60.0 [facility] Comment on above: Performed By: #### I NFLUAB #### [facility] [address] [place] [address] Dr. Deepak Greenfield MANUAL DIFF REQ NO Normal [facility] Comment on above: Performed By: #### I NFLUAB #### [facility] [address] [place] [address] Dr. Deepak Greenfield MCH (RBC) [Entitic mass] 32.4 pg Normal 25.9-34.0 [facility] Comment on above: Performed By: #### I NFLUAB #### [facility] [address] [place] [address] Dr. Deepak Greenfield MCHC (RBC) [Mass/Vol] 33.4 g/dL Normal 29.9-35.2 [facility] Comment on above: Performed By: #### I NFLUAB #### [facility] [address] [place] [address] Dr. Deepak Greenfield MCV (RBC) [Entitic vol] 96.9 fL Critically high 80.0-94.0 [facility] Comment on above: Performed By: #### I NFLUAB #### [facility] [address] [place] [address] Dr. Deepak Greenfield MONO # 0.2 103/ul Critically low 0.3-0.8 [facility] Comment on above: Performed By: #### I NFLUAB #### [facility] [address] [place] [address] Dr. Deepak Greenfield Monocytes/100 WBC (Bld) 2.9 % Normal 1.7-12.0 [facility] Comment on above: Performed By: #### I NFLUAB #### [facility] [address] [place] [address] Dr. Deepak Greenfield NEUT # 3.8 103/ul Normal 1.4-6.5 [facility] Comment on above: Performed By: #### I NFLUAB #### [facility] [address] [place] [address] Dr. Deepak Greenfield Neutrophils/100 WBC (Bld) 69.4 % Normal 43.0-75.0 [facility] Comment on above: Performed By: #### I NFLUAB #### [facility] [address] [address] [address] Deepak Greenfield Platelet mean volume (Bld) [Entitic vol] 9.4 fL Critically low 9.5-13.5 [facility] Comment on above: Performed By: #### I NFLUAB #### [facility] [address] [address] [address] Deepak Greenfield PLT 256 103/ul Normal 150-450 [facility] Comment on above: Performed By: #### I NFLUAB #### [facility] [address] [address] [address] Deepak Greenfield RBC 3.24 106/ul Critically low 4.70-6.10 [facility] Comment on above: Performed By: #### I NFLUAB #### [facility] [address] [place], [place] [id number] Dr. Deepak Greenfield WBC 5.5 103/ul Normal 4.0-11.0 [facility] Comment on above: Performed By: #### I NFLUAB #### [facility] [address] [place] [address] Dr. Deepak Greenfield Coding Summary.on 07-30-2022 Coding Summary. CD:[id number] W w+PGhlYWQ+[id number] paTQtjR6oA4IRKFvVWknu VEDLDYeQHkNwyrUpDW1en XNjZXJu IC8+DT4sHYAzKcbtmGUfy 6Y2bZS7M49wes1fOBpbtK V4VQGgJeXkgqbri1plfIq 6IDcuNmluOyBt BVQpqQ23UNT9gA12Nj89m FHxyRMjm8ibbLr1IoWaYY HkOFL7dQmaJIzal2QxHTR aK32buFHvo0Y4 TUUxmHywqGUdMtVeoFO2o Y5jKQmomtyvf2ivtstfQx b0bk28vBXkv2Q9oAD8P3Y nodP5ZXTbyTFh RczqpVNUrK6tmodpx1qgd qszCaIlNOHdYRg6LOe0RP VmaWnyNpCfYD87XZQ4XTC uekLeA6RdEPYh fQqkUuA6c6B9Wr9WP9ZKF uvgW4SLVIKUKQqtdTZ+PC 28ra64J3CcDbkmEyi6TAQ uIUH3kYV3qS0f DBUrLKhso8E0sNU6F2Loy xDkul4vi5jrPVFmQKvlM0 5kqTOqp1K0TEGtvMC7YZW feDvqNsTtjE60 Oyc+OFNzuAmsb1LbHnnuz 9yny1dmaCa4JczmJBFdum WixTsvGTM9e0SoZe3bUHL sySI1fZW9hQ8j HoJvNvH4KKhnZ978SaVar SGsCyreE15hU2ElzNN+PH FkUcx1YGJkdYszUU3rP0A hZGRpbmctbGVm mQqgLC5vXCDkwgboHIUtc Y2fTQYeR0x1IaZpWdJ0FM muX7DfBXHvzbsfEp59mB6 vAjKwHgP4DNlo H9ItmaU9PMKeiHQdMZqtK VL6T39xv8K1RLMtUALsSD E7aEL8nS4pnXfoaorngVW mdDsgdmVydGlj SEbuOSmvH351JLWulMcrO kNvZGluZyBEYXRlOiAgMD QvMTMvMjAyMzwvdGQ+PHR cNHP9mUaaZMOt gSYyGZuhGw1zsCypwPcbM N3gIDHxtfvnBKDopV5jHK YtxOHjxMotPQ3yOBZhqlo gn418VlDfNDH5 HTOsoSPyC4WijP0jHfEsA IRlKBXlR1SxlJLyUBexS2 26WZyrUbH2ZSIciqZoY5P sLWFsaWduOiB0 g9P7Vy1If9MpymodA7Umz MOrFyLfAkkyLCp2Z2DlNa wvdHI+XM77VVNiTN57MHg 4FZX1fPwtCYwk OXFvI2ZztB3tFeFkYRRqZ GRkOyc+PHRhYmxlIHdpZH RoPScxMDAlJyBzdHlsZT0 iRw4iQNOlYFKk dUfzhANcCvEal5bwOKDzN NgwQD3hbGjzY8JfwSY6CB Bmv5x1Fg50O49oM0OeuTY +TZKsqLU0kVZ7 zD2uNlQeHfY3MWkiP851H iTllSSrDwkhl7tlq7bhdM u8BlG2CJBcbhTdcJtrAGG 6y4DxLm58Y80e IHdpZHRoPSIxNSUiIHZhb Gxeol3nbC1rWx8+PGNvbC F0kME9eB8mWzAnYzV1WSa sI309ZdMpjRVl Pzngf0qjm2nzuCb8AnUsA ELeryUvrCxgXPN5c6KmIb 36F9MxmQyoc4AkSpk1hh6 2wPMez6R9xIL4 F4XaYDRzuegjsKTfnOdsN V5rXYVennvxNGDvxC2uGW SbH3x5YvXjFxC4APysR4E vniS2EZAxtYLx LFDaiTHAcS3lwkqfi4fnn uilSeKoBDPtLPo2BEv3HA AojUwvZaLiWCW7MjV5KKC 6sGZfpQ1teVgr pnltqX8mPpo+BGY5vBRei DNQYZ9zRbemyKD+PHRkIH Z3iVqyUXfbBEEusL0pLYO tN0z2NmFtUlY2 IDdyL6NjnoO2YMWchDYtU NQguFOKaS8qaudgh4thgo tcLwKlKQReAHu8PTo3FOO saWduOiBsZWZ0 MyA6CCO0aKHssG7yjUxvd yjcuU7nQpq+QmlydGggRG U2WZk4X6MwJyl5IQEmySn xKI3eyGItVEsf Ef2zaIlzzNdxBI2wLNWdw fogu378ViGjv0agLOLvfX YxVIcoLJX4C97um6M0QVL sBQYxXMA1nLS4 yL1kqNdzhnvwhZExgLymt hJsaDslQAnyIVkyW397PV MtiInhVcFxCJh8P8QvPtv 3OWEteDhjAD2l nLTiACoxFw1riFxguOmwR D9vEDWmpmjhm794TiWai6 epCAXcoIBzFUhoFFY6T10 fi2T1MMRuOWWv ENS9mQJ5wT0zbTcxspjqu GVmdDsgdmVydGljYWwtYW sxT193DSXitSydNrXsnHe 3E1NfZeq9YPEg eOetXS7naOYjKUsrKp0ou LfpkBviXQ1aBHBpxjmjt5 63NoZqs4piBICdeVGoWTq sOSV6V72qy9D7 FZOvPCDmWSD7tKN6jC1jx GlnbjogbGVmdDsgdmVydG joLXcgNObdC539DJHwyCq nPlBhdGllbnQg ISpePXr9L1NvRlwzvGX+P Y66USVdKM13iWXzfLKyj4 eyyRn6MfPtDIZwBIX8oAx vIFtnu7JrGJLw A30pkWSfs1O4EBXfiMwwu BGxAtFvnIO0wB2lCUijxi tmk1pbykzkZjntl0auun0 3mS54B11sCIwm ZHRoPSIzMCUiIHZhbGlnb p5tgP1sYu0+UKAisAI3aN P7bM3uUTPuNaC3IExmN89 9InRvcCIvPjxj o6xft5duoZn2EpT5WISrs dIcdKsxJZU2l1GkSv27V8 9sIHdpZHRoPSIyMCUiIHZ beTvhls3wqU1s Ii8+LWUjuRO8xCV4iN6hC tOkXeQ6VOwjK739BaGswH FrAtgmA42oL3MqvHH+PHR yVcy8LIEvhVhh CD0ylTVcGWvnOj2qAGA9T eQgVbKwCPdbG1YsGAIqfa fsuvbdkEZ1UIKxFYHvrP0 0Ks7icZhjOOSm gQMImP6ayomxd2nfqidsM nRvNHLlLBv6ADl1GXLqwF zbYiUpYMX9MjS5NWW9eDH sxT4qkQirhtlh bF6nU2WzQFNbeklaZi16g H4ySeHlZuA2IElsLpr+U0 2YAHEOIMMIJQOFEzJFFK3 4DL11ePYbm9B4 qTI6B6DsYOTyjghyuwcwy LI2FKKwMKZjmC18rMNcHX vsTa4ez7J3i828XKPtDSR ixW71Cy0tyOmp MUTznJAXvJ6aebyxi6cva lwhPdCiXVVaKXp8HOu9ET GoiVnsEkLyXPI6WfA6SFJ 2jYQzdS4ruMny zcokiL5zGkw+MTAvMTYvM Tj6NPsmeIU+LDWtFVB3cZ wzMImyRBGjxS0gWDNnC9w 7WeMdWdB5FEbc B6OcUYAfiaqzTc62pZ0iK gBuMxE9AFetZ2JtfxI6QB UxyPYcYPbdTIP6M91qo8C 2HSCkDLYoHSV9 zPX1xK4mmWgktvgieVEfq DsgdmVydGljYWwtYWxpZ2 46IHRvcDsnPjQyIFllYXJ kRZ40LG42qVYz m4G9nNF2U0FdHTSikvdju pcvoOB8BALkVKOpyG59oG KcKAwgTo6ub9O1b302ECW hQDWorQ35Wa0f oRecWEXccQGJwO2zdxflc 8hegnroUtWdKHAvPBf2TP z8EAGvcRknIpAnHKW9VxF 1EWR7bUQiiR7v uPpfigittY6pMlx+TWFsZ TwvdGQ+TWUlJPJ8sWoiCX fmNOApiU6pXEJuE6r4YcF iYzJ8TUtqX1Kn SYLaydilJg42nX1ePvGnH qT2YUgvQ6BwloK6VOTcdS NuWZicBWR5O15vm5Z3XQC nVZClGVZ0nRP0 bC3mlTfcuabgtMIkbKwzj nRfnHbhRZsuNFmtT279ZI IwrJqhQo31dBLoxCtyabH 4N3ZgMbuolOM+ AY91DKTbGL84yATskVMnb 6sjrTa3NwHpCJTmABT0oM egVAoft8PrVGTmO48riTU lg9O2TYDdoJrx lMGyOaYvpXQ6nI5jUIlsv nuum6kvqsgfOralp7euia 69sX81O88qFHefUWGpDVF zMCUiIHZhbGln ll1hqK1sZh4+XCJluHQ1b CG7mP6dMhZhPwH5VYjgS0 47XgCozSGoNtvjd3rbz8q qeDg2GjToULTe elHmpEhpZVA2y5ZfVb29Q 29sIHdpZHRoPSIyMCUiIH FvtYsimb5lsS5tNb9+PC9 fq3kmdk89pV47 dHI+FVPaMMD5fSkrAPiqM DCjfG9pRXlbCgZ6UPLiKu UnnN00tOHnBTfaUn2cjBr gyAeyPZ9iLNWn mzrsx494OhEpl0akZKLvd RQnVBqxADB7I36fp1A4PA RwIUSeWHJ8qYI2gJ3htBc nbjogbGVmdDsg dpJyvBqhINbdNYynN463S WYsrRaoAtSajZNsL8rgtd FPLV6wGzpjyOS+PHRkIHN 0eWxlPSdwYWRk eR4rCHWqT6n0DnKrSzP4E IvsQ3NvkkM1FYJwyPVvZP ZfbHGFfW6oqyyoc0lhmrh gIzAwMDAwMDt0 GXh2JJNuaQogEeYqDBL2R qQ2BNB0kVLdcJ4eaQnnjt jkgM2dKdg+RklOOjwvdGQ +PGVrMOI3dDhw YVukAXBorS8yRQWoM8e4J eVoOnC1MLjoU0VmwrV4RE DbrEXyHZTvrBIIqN4bvlx uj7qhvztqLpKg YJAcKPi7SOe0LFCycYfjM rWbMIG3UbT6MWA4tCHlxL 2ipGejqsreiX6gLoy+TVJ OOjwvdGQ+PHRk ZCX9oOxlUBsbYRJitL1wK XIpQ0p1SfDnHyW4BDwxM7 QxyuV6XPCnaVWvQYBpaBJ VqJ1vqxveg5ls vsrtTqYqZAUgAIf7OVq1P VZcnMvdSpOxQNU2LqT5EL Z9eHLhmK7hxJrriosnvG3 wOyc+GYP4MXE3 UH58AB49G2BwCfeegQWfv +PHRhYmxlIHdpZHRoPS fwUUNvLwCclPnpHE6dZi4 yZGVyLWNvbGxh cHNlOiBj (more content not included)... Normal [facility] PROF CHEM 8 (BAS METB)on Anion gap [Moles/Vol] 8.3 mmol/L Normal [facility] Comment on above: Performed By: #### I NFLUAB #### [facility] [address] [place] [address] Dr. Deepak Greenfield Calcium [Mass/Vol] 8.5 mg/dL Normal 8.5-10.1 [facility] Comment on above: Performed By: #### I NFLUAB #### [facility] [address] [place] [address] Dr. Deepak Greenfield Chloride [Moles/Vol] 104 mmol/L Normal 98-107 [facility] Comment on above: Performed By: #### I NFLUAB #### [facility] [address] [address] [address] Deepak Greenfield CO2 [Moles/Vol] 30.0 mmol/L Normal 21.0-32.0 [facility] Comment on above: Performed By: #### I NFLUAB #### [facility] [address] [place] [address] Dr. Deepak Greenfield Creatinine [Mass/Vol] 0.46 mg/dL Critically low 0.70-1.30 [facility] Comment on above: Performed By: #### I NFLUAB #### [facility] [address] [place] [address] Dr. Deepak Greenfield EGFR-AF IRANIAN >60 Normal >=60 [facility] Comment on above: Performed By: #### I NFLUAB #### [facility] [address] [place] [address] Dr. Deepak Greenfield EGFR-NON AF IRANIAN >60 Normal >=60 [facility] Comment on above: Performed By: #### I NFLUAB #### [facility] [address] [place] [address] Dr. Deepak Greenfield Glucose [Mass/Vol] 152 mg/dL Critically high 74-106 [facility] Comment on above: Performed By: #### I NFLUAB #### [facility] [address] [address] [address] Deepak Greenfield Potassium [Moles/Vol] 4.3 mmol/L Normal 3.5-5.1 [facility] Comment on above: Performed By: #### I NFLUAB #### [facility] [address] [place] [address] Dr. Deepak Greenfield Sodium [Moles/Vol] 138 mmol/L Normal 136-145 [facility] Comment on above: Performed By: #### I NFLUAB #### [facility] [address] [place] [address] Dr. Deepak Greenfield Urea nitrogen [Mass/Vol] 9.0 mg/dL Normal 7.0-18.0 [facility] Comment on above: Performed By: #### I NFLUAB #### [facility] [address] [place] [address] Dr. Deepak Greenfield Urea nitrogen/Creatinine [Mass ratio] 19.6 mg/mg Normal [facility] Comment on above: Performed By: #### I NFLUAB #### [facility] [address] [place] [address] Dr. Deepak Greenfield AMMONIAon 07-29-2022 Ammonia (P) [Moles/Vol] 69 umol/L Critically high 11-32 [facility] Comment on above: Performed By: #### A MM #### [facility] [address] [place] [address] Dr. Deepak Greenfield CBC AUTO DIFFon 07-29-2022 BASO # 0.0 103/ul Normal 0.0-0.1 [facility] Comment on above: Performed By: #### M G, CMP #### [facility] [address] [place] [address] Dr. Deepak Greenfield Basophils/100 WBC (Bld) 0.2 % Normal 0.2-2.0 [facility] Comment on above: Performed By: #### M G, CMP #### [facility] [address] [place] [address] Dr. Deepak Greenfield EO # 0.0 103/ul Normal 0.0-0.7 [facility] Comment on above: Performed By: #### M G, CMP #### [facility] [address] [place] [address] Dr. Deepak Greenfield Eosinophils/100 WBC (Bld) 0.0 % Critically low 0.9-7.0 [facility] Comment on above: Performed By: #### M G, CMP #### [facility] [address] [place] [address] Dr. Deepak Greenfield Erythrocyte distribution width (RBC) [Ratio] 13.2 % Normal 11.0-15.0 [facility] Comment on above: Performed By: #### M G, CMP #### [facility] [address] [place] [address] Dr. Deepak Greenfield Hematocrit (Bld) [Volume fraction] 33.1 % Critically low 42.0-54.0 [facility] Comment on above: Performed By: #### M G, CMP #### [facility] [address] [place] [address] Dr. Deepak Greenfield Hemoglobin (Bld) [Mass/Vol] 10.8 g/dL Critically low 14.0-18.0 [facility] Comment on above: Performed By: #### M G, CMP #### [facility] [address] [place] [address] Dr. Deepak Greenfield IG # 0.04 10e3/ul Critically high 0.00-0.03 [facility] Comment on above: Performed By: #### M G, CMP #### [facility] [address] [place] [address] Dr. Deepak Greenfield IG % 0.5 % Normal 0.0-0.5 [facility] Comment on above: Performed By: #### M G, CMP #### [facility] [address] [place] [address] Dr. Deepak Greenfield LYMPH # 1.1 103/ul Critically low 1.2-3.8 [facility] Comment on above: Performed By: #### M G, CMP #### [facility] [address] [place] [address] Dr. Deepak Greenfield Lymphocytes/100 WBC (Bld) 13.6 % Critically low 20.5-60.0 [facility] Comment on above: Performed By: #### M G, CMP #### [facility] [address] [place] [address] Dr. Deepak Greenfield MANUAL DIFF REQ NO Normal [facility] Comment on above: Performed By: #### M G, CMP #### [facility] [address] [address] [address] Deepak Greenfield MCH (RBC) [Entitic mass] 32.2 pg Normal 25.9-34.0 [facility] Comment on above: Performed By: #### M G, CMP #### [facility] [address] [place] [address] Dr. Deepak Greenfield MCHC (RBC) [Mass/Vol] 32.6 g/dL Normal 29.9-35.2 [facility] Comment on above: Performed By: #### M G, CMP #### [facility] [address] [place] [address] Dr. Deepak Greenfield MCV (RBC) [Entitic vol] 98.8 fL Critically high 80.0-94.0 [facility] Comment on above: Performed By: #### M G, CMP #### [facility] [address] [place] [address] Dr. Deepak Greenfield MONO # 0.3 103/ul Normal 0.3-0.8 [facility] Comment on above: Performed By: #### M G, CMP #### [facility] [address] [place] [address] Dr. Deepak Greenfield Monocytes/100 WBC (Bld) 3.8 % Normal 1.7-12.0 [facility] Comment on above: Performed By: #### M G, CMP #### [facility] [address] [place] [address] Dr. Deepak Greenfield NEUT # 6.7 103/ul Critically high 1.4-6.5 [facility] Comment on above: Performed By: #### M G, CMP #### [facility] [address] [place] [address] Dr. Deepak Greenfield Neutrophils/100 WBC (Bld) 81.9 % Critically high 43.0-75.0 [facility] Comment on above: Performed By: #### M G, CMP #### [facility] [address] [place] [address] Dr. Deepak Greenfield Platelet mean volume (Bld) [Entitic vol] 9.6 fL Normal 9.5-13.5 [facility] Comment on above: Performed By: #### M G, CMP #### [facility] [address] [address] [address] Deepak Greenfield PLT 257 103/ul Normal 150-450 [facility] Comment on above: Performed By: #### M G, CMP #### [facility] [address] [address] [address] Deepak Greenfield RBC 3.35 106/ul Critically low 4.70-6.10 [facility] Comment on above: Performed By: #### M G, CMP #### [facility] [address] [address] [address] Deepak Greenfield WBC 8.2 103/ul Normal 4.0-11.0 [facility] Comment on above: Performed By: #### M G, CMP #### [facility] [address] [place] [address] Dr. Deepak Greenfield LACTATE/LACTIC ACIDon 2022 Lactate [Moles/Vol] 1.1 mmol/L Normal 0.4-2.0 [facility] Comment on above: Performed By: #### I NFLUAB #### [facility] [address] [place] [address] Dr. Deepak Greenfield PROF CHEM 8 (BAS METB)on Anion gap [Moles/Vol] 9.4 mmol/L Normal [facility] Comment on above: Performed By: #### I NFLUAB #### [facility] [address] [place] [address] Dr. Deepak Greenfield Calcium [Mass/Vol] 8.0 mg/dL Critically low 8.5-10.1 [facility] Comment on above: Performed By: #### I NFLUAB #### [facility] [address] [place] [address] Dr. Deepak Greenfield Chloride [Moles/Vol] 105 mmol/L Normal 98-107 [facility] Comment on above: Performed By: #### I NFLUAB #### [facility] [address] [place] [address] Dr. Deepak Greenfield CO2 [Moles/Vol] 30.7 mmol/L Normal 21.0-32.0 [facility] Comment on above: Performed By: #### I NFLUAB #### [facility] [address] [place] [address] Dr. Deepak Greenfield Creatinine [Mass/Vol] 0.66 mg/dL Critically low 0.70-1.30 [facility] Comment on above: Performed By: #### I NFLUAB #### [facility] [address] [address] [address] Deepak Greenfield EGFR-AF IRANIAN >60 Normal >=60 [facility] Comment on above: Performed By: #### I NFLUAB #### [facility] [address] [place] [address] Dr. Deepak Greenfield EGFR-NON AF IRANIAN >60 Normal >=60 [facility] Comment on above: Performed By: #### I NFLUAB #### [facility] [address] [place] [address] Dr. Deepak Greenfield Glucose [Mass/Vol] 177 mg/dL Critically high 74-106 [facility] Comment on above: Performed By: #### I NFLUAB #### [facility] [address] [place] [address] Dr. Deepak Greenfield Potassium [Moles/Vol] 4.1 mmol/L Normal 3.5-5.1 [facility] Comment on above: Performed By: #### I NFLUAB #### [facility] [address] [place] [address] Dr. Deepak Greenfield Sodium [Moles/Vol] 141 mmol/L Normal 136-145 [facility] Comment on above: Performed By: #### I NFLUAB #### [facility] [address] [address] [address] Deepak Greenfield Urea nitrogen [Mass/Vol] 9.0 mg/dL Normal 7.0-18.0 [facility] Comment on above: Performed By: #### I NFLUAB #### [facility] [address] [place] [address] Dr. Deeapk Greenfield Urea nitrogen/Creatinine [Mass ratio] 13.6 mg/mg Normal [facility] Comment on above: Performed By: #### I NFLUAB #### [facility] [address] [place] [address] Dr. Deepak Greenfield AMMONIAon 07-28-2022 Ammonia (P) [Moles/Vol] 68 umol/L Critically high 11-32 [facility] Comment on above: Performed By: #### B MP #### [facility] [address] [place] [address] Dr. Deepak Greenfield CBC AUTO DIFFon 07-28-2022 BASO # 0.0 103/ul Normal 0.0-0.1 [facility] Comment on above: Performed By: #### C BC #### [facility] [address] [place] [address] Dr. Deepak Greenfield Basophils/100 WBC (Bld) 0.3 % Normal 0.2-2.0 [facility] Comment on above: Performed By: #### C BC #### [facility] [address] [place] [address] Dr. Deepak Greenfield EO # 0.0 103/ul Normal 0.0-0.7 [facility] Comment on above: Performed By: #### C BC #### [facility] [address] [place] [address] Dr. Deepak Greenfield Eosinophils/100 WBC (Bld) 0.0 % Critically low 0.9-7.0 [facility] Comment on above: Performed By: #### C BC #### [facility] [address] [place] [address] Dr. Deepak Greenfield Erythrocyte distribution width (RBC) [Ratio] 13.3 % Normal 11.0-15.0 [facility] Comment on above: Performed By: #### C BC #### [facility] [address] [place] [address] Dr. Deepak Greenfield Hematocrit (Bld) [Volume fraction] 37.0 % Critically low 42.0-54.0 [facility] Comment on above: Performed By: #### C BC #### [facility] [address] [place] [address] Dr. Deepak Greenfield Hemoglobin (Bld) [Mass/Vol] 12.3 g/dL Critically low 14.0-18.0 [facility] Comment on above: Performed By: #### C BC #### [facility] [address] [place] [address] Dr. Deepak Greenfield IG # 0.06 10e3/ul Critically high 0.00-0.03 [facility] Comment on above: Performed By: #### C BC #### [facility] [address] [place] [address] Dr. Deepak Greenfield IG % 0.5 % Normal 0.0-0.5 [facility] Comment on above: Performed By: #### C BC #### [facility] [address] [place] [address] Dr. Deepak Greenfield LYMPH # 2.9 103/ul Normal 1.2-3.8 [facility] Comment on above: Performed By: #### C BC #### [facility] [address] [place] [address] Dr. Deepak Greenfield Lymphocytes/100 WBC (Bld) 23.5 % Normal 20.5-60.0 [facility] Comment on above: Performed By: #### C BC #### [facility] [address] [place] [address] Dr. Deepak Greenfield MANUAL DIFF REQ NO Normal [facility] Comment on above: Performed By: #### C BC #### [facility] [address] [place] [address] Dr. Deepak Greenfield MCH (RBC) [Entitic mass] 32.4 pg Normal 25.9-34.0 [facility] Comment on above: Performed By: #### C BC #### [facility] [address] [place] [address] Dr. Deepak Greenfield MCHC (RBC) [Mass/Vol] 33.2 g/dL Normal 29.9-35.2 [facility] Comment on above: Performed By: #### C BC #### [facility] [address] [place] [address] Dr. Deepak Greenfield MCV (RBC) [Entitic vol] 97.4 fL Critically high 80.0-94.0 [facility] Comment on above: Performed By: #### C BC #### [facility] [address] [place] [address] Dr. Deepak Greenfield MONO # 1.0 103/ul Critically high 0.3-0.8 [facility] Comment on above: Performed By: #### C BC #### [facility] [address] [place] [address] Dr. Deepak Greenfield Monocytes/100 WBC (Bld) 8.0 % Normal 1.7-12.0 [facility] Comment on above: Performed By: #### C BC #### [facility] [address] [place] [address] Dr. Deepak Greenfield NEUT # 8.3 103/ul Critically high 1.4-6.5 [facility] Comment on above: Performed By: #### C BC #### [facility] [address] [place] [address] Dr. Deepak Greenfield Neutrophils/100 WBC (Bld) 67.7 % Normal 43.0-75.0 [facility] Comment on above: Performed By: #### C BC #### [facility] [address] [place] [address] Dr. Deepak Greenfield Platelet mean volume (Bld) [Entitic vol] 9.7 fL Normal 9.5-13.5 [facility] Comment on above: Performed By: #### C BC #### [facility] [address] [place] [address] Dr. Deepak Greenfield PLT 325 103/ul Normal 150-450 [facility] Comment on above: Performed By: #### C BC #### [facility] [address] [place] [address] Dr. Deepak Greenfield RBC 3.80 106/ul Critically low 4.70-6.10 [facility] Comment on above: Performed By: #### C BC #### [facility] [address] [place] [address] Dr. Deepak Greenfield WBC 12.2 103/ul Critically high 4.0-11.0 [facility] Comment on above: Performed By: #### C BC #### [facility] [address] [place] [address] Dr. Deepak Greenfield CULTURE BLOODon 07-28-2022 Microscopic examination of blood, culture Culture Observations: NO GROWTH AT 5 DAYS. Normal [facility] Comment on above: Performed By: #### B LDCX2 #### [facility] [address] [place] [address] Dr. Deepak Greenfield Microscopic examination of blood, culture Culture Observations: NO GROWTH AT 5 DAYS. Normal [facility] Comment on above: Performed By: #### C BC #### [facility] [address] [place] [address] Dr. Deepak Greenfield LACTATE/LACTIC ACIDon 2022 Lactate [Moles/Vol] 2.5 mmol/L Critically high 0.4-2.0 [facility] Comment on above: Performed By: #### C VDTBH #### [facility] [address] [place] [address] Dr. Deepak Greenfield PROF 14(COMP METB)on 023 Albumin [Mass/Vol] 3.1 g/dL Critically low 3.4-5.0 [facility] Comment on above: Performed By: #### C BC #### [facility] [address] [place] [address] Dr. Deepak Greenfield Albumin/Globulin [Mass ratio] 0.7 {ratio} Normal [facility] Comment on above: Performed By: #### C BC #### [facility] [address] [place] [address] Dr. Deepak Greenfield ALP [Catalytic activity/Vol] 51 U/L Normal 46-116 [facility] Comment on above: Performed By: #### C BC #### [facility] [address] [place] [address] Dr. Deepak Greenfield ALT [Catalytic activity/Vol] 106 U/L Critically high 16-63 [facility] Comment on above: Performed By: #### C BC #### [facility] [address] [place] [address] Dr. Deepak Greenfield Anion gap [Moles/Vol] 14.2 mmol/L Normal [facility] Comment on above: Performed By: #### C BC #### [facility] [address] [address] [address] Deepak Greenfield AST [Catalytic activity/Vol] 81 U/L Critically high 15-37 [facility] Comment on above: Performed By: #### C BC #### [facility] [address] [address] [address] Deepak Greenfield Bilirubin [Mass/Vol] 0.4 mg/dL Normal 0.2-1.0 [facility] Comment on above: Performed By: #### C BC #### [facility] [address] [address] [address] Deepak Greenfield Calcium [Mass/Vol] 8.9 mg/dL Normal 8.5-10.1 [facility] Comment on above: Performed By: #### C BC #### [facility] [address] [address] [address] Deepak Greenfield Chloride [Moles/Vol] 105 mmol/L Normal 98-107 [facility] Comment on above: Performed By: #### C BC #### [facility] [address] [address] [address] Deepak Greenfield CO2 [Moles/Vol] 27.9 mmol/L Normal 21.0-32.0 [facility] Comment on above: Performed By: #### C BC #### [facility] [address] [address] [address] Deepak Greenfield Creatinine [Mass/Vol] 0.77 mg/dL Normal 0.70-1.30 [facility] Comment on above: Performed By: #### C BC #### [facility] [address] [place] [address] Dr. Deepak Greenfield EGFR-AF IRANIAN >60 Normal >=60 [facility] Comment on above: Performed By: #### C BC #### [facility] [address] [address] [address] Deepak Greenfield EGFR-NON AF IRANIAN >60 Normal >=60 [facility] Comment on above: Performed By: #### C BC #### [facility] [address] [address] [address] Deepak Greenfield Globulin (S) [Mass/Vol] 4.3 g/dL Normal [facility] Comment on above: Performed By: #### C BC #### [facility] [address] [address] [address] Deepak Greenfield Glucose [Mass/Vol] 162 mg/dL Critically high 74-106 [facility] Comment on above: Performed By: #### C BC #### [facility] [address] [address] [address] Deepak Greenfield Potassium [Moles/Vol] 4.1 mmol/L Normal 3.5-5.1 [facility] Comment on above: Performed By: #### C BC #### [facility] [address] [place] [address] Dr. Deepak Greenfield Protein [Mass/Vol] 7.4 g/dL Normal 6.4-8.2 [facility] Comment on above: Performed By: #### C BC #### [facility] [address] [address] [address] Deepak Greenfield Sodium [Moles/Vol] 143 mmol/L Normal 136-145 [facility] Comment on above: Performed By: #### C BC #### [facility] [address] [place] [address] Dr. Deepak Greenfield Urea nitrogen [Mass/Vol] 12.0 mg/dL Normal 7.0-18.0 [facility] Comment on above: Performed By: #### C BC #### [facility] [address] [address] [address] Deepak Greenfield Urea nitrogen/Creatinine [Mass ratio] 15.6 mg/mg Normal [facility] Comment on above: Performed By: #### C BC #### [facility] [address] [place] [address] Dr. Deepak Greenfield RESPIRATORY PANEL PLUSon Adenovirus Not detected Normal NOT DETECTED [facility] Comment on above: Performed By: #### B MP #### [facility] [address] [place] [address] Dr. Deepak Ocampo Parapertusis Not detected Normal NOT DETECTED [facility] Comment on above: Performed By: #### B MP #### [facility] [address] [place] [address] Dr. Deepak Ocampo Pertussis Not detected Normal NOT DETECTED [facility] Comment on above: Performed By: #### B MP #### [facility] [address] [place] [address] Dr. Deepak Greenfield Chlamydia Pneumoniae Not detected Normal NOT DETECTED [facility] Comment on above: Performed By: #### B MP #### [facility] [address] [place] [address] Dr. Deepak Greenfield Coronavirus 229E Not detected Normal NOT DETECTED [facility] Comment on above: Performed By: #### B MP #### [facility] [address] [place] [address] Dr. Deepak Greenfield Coronavirus HKU1 Not detected Normal NOT DETECTED [facility] Comment on above: Performed By: #### B MP #### [facility] [address] [place] [address] Dr. Deepak Greenfield Coronavirus NL63 Not detected Normal NOT DETECTED [facility] Comment on above: Performed By: #### B MP #### [facility] [address] [place] [address] Dr. Deepak Greenfield Coronavirus OC43 Not detected Normal NOT DETECTED [facility] Comment on above: Performed By: #### B MP #### [facility] [address] [place] [address] Dr. Deepak Greenfield Influenza A H1 Not detected Normal NOT DETECTED [facility] Comment on above: Performed By: #### B MP #### [facility] [address] [place] [address] Dr. Deepak Greenfield Influenza A H1 2009 Not detected Normal NOT DETECTED [facility] Comment on above: Performed By: #### B MP #### [facility] [address] [place] [address] Dr. Deepak Greenfield Influenza A H3 Not detected Normal NOT DETECTED [facility] Comment on above: Performed By: #### B MP #### [facility] [address] [address] [address] Deepak Greenfield Influenza B Not detected Normal NOT DETECTED [facility] Comment on above: Performed By: #### B MP #### [facility] [address] [address] [address] Deepak Greenfield Metapneumovirus Detected Abnormal NOT DETECTED [facility] Comment on above: Performed By: #### B MP #### [facility] [address] [address] [address] Deepak Greenfield Mycoplas. Pneumoniae Not detected Normal NOT DETECTED [facility] Comment on above: Performed By: #### B MP #### [facility] [address] [place] [address] Dr. Deepak Greenfield Parainfluenza 1 Not detected Normal NOT DETECTED [facility] Comment on above: Performed By: #### B MP #### [facility] [address] [place] [address] Dr. Deepak Greenfield Parainfluenza 2 Not detected Normal NOT DETECTED [facility] Comment on above: Performed By: #### B MP #### [facility] [address] [place] [address] Dr. Deepak Greenfield Parainfluenza 3 Not detected Normal NOT DETECTED [facility] Comment on above: Performed By: #### B MP #### [facility] [address] [address] [address] Deepak Greenfield Parainfluenza 4 Not detected Normal NOT DETECTED [facility] Comment on above: Performed By: #### B MP #### [facility] [address] [address] [address] Deepak Greenfield Rhino/Enterovirus Not detected Normal NOT DETECTED [facility] Comment on above: Performed By: #### B MP #### [facility] [address] [place] [address] Dr. Deepak Greenfield RP2 Header 1 RESPIRATORY PANEL: VIRUSES Normal [facility] Comment on above: Performed By: #### B MP #### [facility] [address] [address] [address] Deepak Greenfield RP2 Header 2 RESPIRATORY PANEL: BACTERIA Normal [facility] Comment on above: Performed By: #### B MP #### [facility] [address] [address] [address] Deepak Greenfield RSV Not detected Normal NOT DETECTED [facility] Comment on above: Performed By: #### B MP #### [facility] [address] [address] [address] Deepak Greenfield SARS-CoV-2 (COVID-19) RNA CINDY+probe Ql (Unsp spec) Not detected Normal NOT DETECTED [facility] Comment on above: Performed By: #### B MP #### [facility] [address] [place] [address] Dr. Deepak Greenfield XR CHEST 1 Von [...] Akua PEREZ Date: 2022-07-28 20:23 Normal [facility] AMMONIAon 07-27-2022 Ammonia (P) [Moles/Vol] 76 umol/L Critically high [facility] Comment on above: Performed By: #### M G, CMP #### [facility] [address] [address] [address] Deepak Greenfield CBC W MANUAL DIFFon 07-28-19 23 ATYPICAL LYMPH # Normal [facility] Comment on above: Performed By: #### M G, CMP #### [facility] [address] [address] [address] Deepak Greenfield ATYPICAL LYMPH % Normal [facility] Comment on above: Performed By: #### M G, CMP #### [facility] [address] [address] [address] Deepak Greenfield BAND # 0.4 103/ul Critically high 0.0-0.3 [facility] Comment on above: Performed By: #### M G, CMP #### [facility] [address] [address] [address] Deepak Greenfield BAND % 4 % Normal 0-5 [facility] Comment on above: Performed By: #### M G, CMP #### [facility] [address] [place] [address] Dr. Deepak Greenfield BASOM # 0.00 103/ul Normal 0.00-0.10 [facility] Comment on above: Performed By: #### M G, CMP #### [facility] [address] [place] [address] Dr. Deepak Greenfield BASOM % 0.0 % Critically low 0.2-2.0 [facility] Comment on above: Performed By: #### M G, CMP #### [facility] [address] [place] [address] Dr. Deepak Greenfield BLAST # Normal [facility] Comment on above: Performed By: #### M G, CMP #### [facility] [address] [place] [address] Dr. Deepak Greenfield BLAST % Normal [facility] Comment on above: Performed By: #### M G, CMP #### [facility] [address] [place] [address] Dr. Deepak Greenfield CORRECTED WBC Normal 4.0-11.0 [facility] Comment on above: Performed By: #### M G, CMP #### [facility] [address] [place] [address] Dr. Deepak Greenfield EOS # 0.00 103/ul Normal 0.00-0.70 [facility] Comment on above: Performed By: #### M G, CMP #### [facility] [address] [address] [address] Deepak Greenfield EOS% 0.0 % Critically low 0.9-7.0 [facility] Comment on above: Performed By: #### M G, CMP #### [facility] [address] [address] [address] Deepak Greenfield HCT 29.6 % Critically low 42.0-54.0 [facility] Comment on above: Performed By: #### M G, CMP #### [facility] [address] [address] [address] Deepak Greenfield HGB 10.4 g/dl Critically low 14.0-18.0 [facility] Comment on above: Performed By: #### M G, CMP #### [facility] [address] [address] [address] Deepak Greenfield LYMPHM # 0.71 103/ul Critically low 1.20-3.80 [facility] Comment on above: Performed By: #### M G, CMP #### [facility] [address] [address] [address] Deepak Greenfield LYMPHM% 8.0 % Critically low 20.5-60.0 [facility] Comment on above: Performed By: #### M G, CMP #### [facility] [address] [address] [address] Deepak Greenfield MCH 33.0 pg Normal 25.9-34.0 [facility] Comment on above: Performed By: #### M G, CMP #### [facility] [address] [address] [address] Deepak Greenfield MCHC 35.1 g/dl Normal 29.9-35.2 [facility] Comment on above: Performed By: #### M G, CMP #### [facility] [address] [address] [address] Deepak Greenfield MCV 94.0 fL Normal 80.0-94.0 [facility] Comment on above: Performed By: #### M G, CMP #### [facility] [address] [address] [address] Deepak Greenfield METAMYELOCYTE # Normal [facility] Comment on above: Performed By: #### M G, CMP #### [facility] [address] [address] [address] Deepak Greenfield METAMYELOCYTE % Normal [facility] Comment on above: Performed By: #### M G, CMP #### [facility] [address] [address] [address] Deepak Greenfield MONOM# 0.71 103/ul Normal 0.30-0.80 [facility] Comment on above: Performed By: #### M G, CMP #### [facility] [address] [place] [address] Dr. Deepak Greenfield MONOM% 8.0 % Normal 1.7-12.0 [facility] Comment on above: Performed By: #### M G, CMP #### [facility] [address] [place] [address] Dr. Deepak Greenfield MPV 9.6 fL Normal 9.5-13.5 [facility] Comment on above: Performed By: #### M G, CMP #### [facility] [address] [place] [address] Dr. Deepak Greenfield MYELOCYTE # Normal [facility] Comment on above: Performed By: #### M G, CMP #### [facility] [address] [place] [address] Dr. Deepak Greenfield MYELOCYTE % Normal [facility] Comment on above: Performed By: #### M G, CMP #### [facility] [address] [place] [address] Dr. Deepak Greenfield NRBC Normal [facility] Comment on above: Performed By: #### M G, CMP #### [facility] [address] [place] [address] Dr. Deepak Greenfield PLT 267 103/ul Normal 150-450 [facility] Comment on above: Performed By: #### M G, CMP #### [facility] [address] [address] [address] Deepak Greenfield RBC 3.15 106/ul Critically low 4.70-6.10 [facility] Comment on above: Performed By: #### M G, CMP #### [facility] [address] [address] [address] Deepak Greenfield RDW 12.9 % Normal 11.0-15.0 [facility] Comment on above: Performed By: #### M G, CMP #### [facility] [address] [address] [address] Deepak Greenfield SEG # 7.12 103/ul Critically high 1.40-6.50 [facility] Comment on above: Performed By: #### M G, CMP #### [facility] [address] [place] [address] Dr. Deepak Greenfield SEG % 80.0 % Critically high 43.0-75.0 [facility] Comment on above: Performed By: #### M G, CMP #### [facility] [address] [place] [address] Dr. Deepak Greenfield WBC 8.9 103/ul Normal 4.0-11.0 [facility] Comment on above: Performed By: #### M G, CMP #### [facility] [address] [place] [address] Dr. Deepak Greenfield PROF CHEM 8 (BAS METB)on Anion gap [Moles/Vol] 12.4 mmol/L Normal [facility] Comment on above: Performed By: #### C BC #### [facility] [address] [place] [address] Dr. Deepak Greenfield Calcium [Mass/Vol] 8.2 mg/dL Critically low 8.5-10.1 [facility] Comment on above: Performed By: #### C BC #### [facility] [address] [place] [address] Dr. Deepak Greenfield Chloride [Moles/Vol] 101 mmol/L Normal 98-107 [facility] Comment on above: Performed By: #### C BC #### [facility] [address] [place] [address] Dr. Deepak Greenfield CO2 [Moles/Vol] 25.0 mmol/L Normal 21.0-32.0 [facility] Comment on above: Performed By: #### C BC #### [facility] [address] [place] [address] Dr. Deepak Greenfield Creatinine [Mass/Vol] 0.53 mg/dL Critically low 0.70-1.30 [facility] Comment on above: Performed By: #### C BC #### [facility] [address] [place] [address] Dr. Deepak Greenfield EGFR-AF IRANIAN >60 Normal >=60 [facility] Comment on above: Performed By: #### C BC #### [facility] [address] [place] [address] Dr. Deepak Greenfield EGFR-NON AF IRANIAN >60 Normal >=60 [facility] Comment on above: Performed By: #### C BC #### [facility] [address] [place] [address] Dr. Deepak Greenfield Glucose [Mass/Vol] 161 mg/dL Critically high 74-106 [facility] Comment on above: Performed By: #### C BC #### [facility] [address] [place] [address] Dr. Deepak Greenfield Potassium [Moles/Vol] 4.4 mmol/L Normal 3.5-5.1 [facility] Comment on above: Performed By: #### C BC #### [facility] [address] [place] [address] Dr. Deepak Greenfield Sodium [Moles/Vol] 134 mmol/L Critically low 136-145 [facility] Comment on above: Performed By: #### C BC #### [facility] [address] [place] [address] Dr. Deepak Greenfield Urea nitrogen [Mass/Vol] 13.0 mg/dL Normal 7.0-18.0 [facility] Comment on above: Performed By: #### C BC #### [facility] [address] [place] [address] Dr. Deepak Greenfield Urea nitrogen/Creatinine [Mass ratio] 24.5 mg/mg Normal [facility] Comment on above: Performed By: #### C BC #### [facility] [address] [place] [address] Dr. Deepak Greenfield AMMONIAon 07-26-2022 Ammonia (P) [Moles/Vol] 56 umol/L Critically high 11-32 [facility] Comment on above: Performed By: #### M G, CMP #### [facility] [address] [address] [address] Deepak Greenfield CARDIAC BEATRIS ADMITon 023 CK [Catalytic activity/Vol] 83 U/L Normal 39-308 [facility] Comment on above: Performed By: #### B MP #### [facility] [address] [place] [address] Dr. Deepak Greenfield CK.MB [Mass/Vol] 0.86 ng/mL Normal <=3.60 [facility] Comment on above: Performed By: #### B MP #### [facility] [address] [place] [address] Dr. Deepak Greenfield HSTROP 7.4 pg/mL Normal 4.0-76.1 [facility] Comment on above: Result Comment: CUT- OFF POINTS HAVE BEEN ESTABLISHED BASED ON THE FOURTH UNIVERSAL DEFINITIONS OF MYOCARDIAL INFARCTION. THE UPPER REFERENCE LIMIT (URL) OF TROPONIN, DEFINED THE 99TH PERCENTILE OF cTnI DISTRIBUTION IN A REFERENCE POPULATION, HAS BEEN CONFIRMED THE DECISION THRESHOLD FOR OK DIAGNOSIS. Performed By: #### B MP #### [facility] [address] [place] [address] Dr. Deepak Greenfield VALE 46 ng/mL Normal 16-96 [facility] Comment on above: Performed By: #### B MP #### [facility] [address] [place], [place] [id number] Dr. Deepak Greenfield CBC AUTO DIFFon 07-26-2022 BASO # 0.1 103/ul Normal 0.0-0.1 [facility] Comment on above: Performed By: #### M G, CMP #### [facility] [address] [place] [address] Dr. Deepak Greenfield Basophils/100 WBC (Bld) 0.5 % Normal 0.2-2.0 [facility] Comment on above: Performed By: #### M G, CMP #### [facility] [address] [place] [address] Dr. Deepak Greenfield EO # 0.2 103/ul Normal 0.0-0.7 [facility] Comment on above: Performed By: #### M G, CMP #### [facility] [address] [place] [address] Dr. Deepak Greenfield Eosinophils/100 WBC (Bld) 2.1 % Normal 0.9-7.0 [facility] Comment on above: Performed By: #### M G, CMP #### [facility] [address] [place] [address] Dr. Deepak Greenfield Erythrocyte distribution width (RBC) [Ratio] 13.2 % Normal 11.0-15.0 [facility] Comment on above: Performed By: #### M G, CMP #### [facility] [address] [place] [address] Dr. Deepak Greenfield Hematocrit (Bld) [Volume fraction] 36.7 % Critically low 42.0-54.0 [facility] Comment on above: Performed By: #### M G, CMP #### [facility] [address] [place] [address] Dr. Deepak Greenfield Hemoglobin (Bld) [Mass/Vol] 12.4 g/dL Critically low 14.0-18.0 [facility] Comment on above: Performed By: #### M G, CMP #### [facility] [address] [place] [address] Dr. Deepak Greenfield IG # 0.04 10e3/ul Critically high 0.00-0.03 [facility] Comment on above: Performed By: #### M G, CMP #### [facility] [address] [place] [address] Dr. Deepak Greenfield IG % 0.4 % Normal 0.0-0.5 [facility] Comment on above: Performed By: #### M G, CMP #### [facility] [address] [address] [address] Deepak Greenfield LYMPH # 1.7 103/ul Normal 1.2-3.8 [facility] Comment on above: Performed By: #### M G, CMP #### [facility] [address] [place] [address] Dr. Deepak Greenfield Lymphocytes/100 WBC (Bld) 15.6 % Critically low 20.5-60.0 [facility] Comment on above: Performed By: #### M G, CMP #### [facility] [address] [place] [address] Dr. Deepak Greenfield MANUAL DIFF REQ NO Normal [facility] Comment on above: Performed By: #### M G, CMP #### [facility] [address] [place] [address] Dr. Deepak Greenfield MCH (RBC) [Entitic mass] 32.5 pg Normal 25.9-34.0 [facility] Comment on above: Performed By: #### M G, CMP #### [facility] [address] [place] [address] Dr. Deepak Greenfield MCHC (RBC) [Mass/Vol] 33.8 g/dL Normal 29.9-35.2 [facility] Comment on above: Performed By: #### M G, CMP #### [facility] [address] [place] [address] Dr. Deepak Greenfield MCV (RBC) [Entitic vol] 96.3 fL Critically high 80.0-94.0 [facility] Comment on above: Performed By: #### M G, CMP #### [facility] [address] [place] [address] Dr. Deepak Greenfield MONO # 1.4 103/ul Critically high 0.3-0.8 [facility] Comment on above: Performed By: #### M G, CMP #### [facility] [address] [place] [address] Dr. Deepak Greenfield Monocytes/100 WBC (Bld) 12.8 % Critically high 1.7-12.0 [facility] Comment on above: Performed By: #### M G, CMP #### [facility] [address] [place] [address] Dr. Deepak Greenfield NEUT # 7.4 103/ul Critically high 1.4-6.5 [facility] Comment on above: Performed By: #### M G, CMP #### [facility] [address] [address] [address] Deepak Greenfield Neutrophils/100 WBC (Bld) 68.6 % Normal 43.0-75.0 [facility] Comment on above: Performed By: #### M G, CMP #### [facility] [address] [address] [address] Deepak Greenfield Platelet mean volume (Bld) [Entitic vol] 9.5 fL Normal 9.5-13.5 [facility] Comment on above: Performed By: #### M G, CMP #### [facility] [address] [place] [address] Dr. Deepak Greenfield PLT 314 103/ul Normal 150-450 [facility] Comment on above: Performed By: #### M G, CMP #### [facility] [address] [place] [address] Dr. Deepak Greenfield RBC 3.81 106/ul Critically low 4.70-6.10 [facility] Comment on above: Performed By: #### M G, CMP #### [facility] [address] [place] [address] Dr. Deepak Greenfield WBC 10.8 103/ul Normal 4.0-11.0 [facility] Comment on above: Performed By: #### M G, CMP #### [facility] [address] [place] [address] Dr. Deepak Greenfield [facility]on SARS-CoV-2 (COVID-19) RNA CINDY+probe Ql (Unsp spec) Not detected Normal NOT DETECTED [facility] Comment on above: Result Comment: [...] for this test is supported by the [employer] and Human Service's declaration that [...] used). Performed By: #### C VDTBH #### [facility] [address] [place] [address] Dr. Deepak Greenfield INFLUENZA A AND B AGon 07-26 [facility] SEE BELOW Normal [facility] Comment on above: Result Comment: Nega tive for Flu A protein angiten. Infection due to Flu A cannot be ruled out. Flu A angiten in the sample may be below the detection limit of the test. Performed By: #### I NFLUAB #### [facility] [address] [place] [address] Dr. Deepak Green[facility] Normal [facility] Comment on above: Result Comment: Nega tive for Flu B protein antigen. Infection due to Flu B cannot be ruled out. Flu B antigen in the sample may be below the detection limit of the test. Performed By: #### I NFLUAB #### [facility] [address] [place] [address] Dr. Deepak Greenfield INFLUENZA A AG Negative Normal NEGATIVE SEE COMMENT [facility] Comment on above: Performed By: #### I NFLUAB #### [facility] [address] [place] [address] Dr. Deepak Greefnield INFLUENZA B AG Negative Normal NEGATIVE SEE COMMENT [facility] Comment on above: Performed By: #### I NFLUAB #### [facility] [address] [place] [address] Dr. Deepak Greenfield LACTATE/LACTIC ACIDon 2022 Lactate [Moles/Vol] 1.2 mmol/L Normal 0.4-2.0 [facility] Comment on above: Performed By: #### M G, CMP #### [facility] [address] [place] [address] Dr. Deepak Greenfield PROF 14(COMP METB)on 023 Albumin [Mass/Vol] 3.3 g/dL Critically low 3.4-5.0 [facility] Comment on above: Performed By: #### B MP #### [facility] [address] [place] [address] Dr. Deepak Greenfield Albumin/Globulin [Mass ratio] 0.8 {ratio} Normal [facility] Comment on above: Performed By: #### B MP #### [facility] [address] [place] [address] Dr. Deepak Greenfield ALP [Catalytic activity/Vol] 45 U/L Critically low 46-116 [facility] Comment on above: Performed By: #### B MP #### [facility] [address] [place] [address] Dr. Deepak Greenfield ALT [Catalytic activity/Vol] 114 U/L Critically high 16-63 [facility] Comment on above: Performed By: #### B MP #### [facility] [address] [place] [address] Dr. Deepak Greenfield Anion gap [Moles/Vol] 14.5 mmol/L Normal [facility] Comment on above: Performed By: #### B MP #### [facility] [address] [place] [address] Dr. Deepak Greenfield AST [Catalytic activity/Vol] 71 U/L Critically high 15-37 [facility] Comment on above: Performed By: #### B MP #### [facility] [address] [place] [address] Dr. Deepak Greenfield Bilirubin [Mass/Vol] 0.7 mg/dL Normal 0.2-1.0 [facility] Comment on above: Performed By: #### B MP #### [facility] [address] [place] [address] Dr. Deepak Greenfield Calcium [Mass/Vol] 9.1 mg/dL Normal 8.5-10.1 [facility] Comment on above: Performed By: #### B MP #### [facility] [address] [place] [address] Dr. Deepak Greenfield Chloride [Moles/Vol] 98 mmol/L Normal 98-107 [facility] Comment on above: Performed By: #### B MP #### [facility] [address] [place] [address] Dr. Deepak Greenfield CO2 [Moles/Vol] 27.4 mmol/L Normal 21.0-32.0 [facility] Comment on above: Performed By: #### B MP #### [facility] [address] [place] [address] Dr. Deepak Greenfield Creatinine [Mass/Vol] 0.65 mg/dL Critically low 0.70-1.30 [facility] Comment on above: Performed By: #### B MP #### [facility] [address] [place] [address] Dr. Deepak Greenfield EGFR-AF IRANIAN >60 Normal >=60 [facility] Comment on above: Performed By: #### B MP #### [facility] [address] [place] [address] Dr. Deepak Greenfield EGFR-NON AF IRANIAN >60 Normal >=60 [facility] Comment on above: Performed By: #### B MP #### [facility] [address] [place] [address] Dr. Deepak Greenfield Globulin (S) [Mass/Vol] 4.2 g/dL Normal [facility] Comment on above: Performed By: #### B MP #### [facility] [address] [place] [address] Dr. Deepak Greenfield Glucose [Mass/Vol] 105 mg/dL Normal 74-106 [facility] [place] [facility] Comment on above: Performed By: #### B MP #### [facility] [address] [place] [address] Dr. Deepak Greenfield Potassium [Moles/Vol] 3.9 mmol/L Normal 3.5-5.1 [facility] Comment on above: Performed By: #### B MP #### [facility] [address] [place], [place] [address] Dr. Deepak Greenfield Protein [Mass/Vol] 7.5 g/dL Normal 6.4-8.2 [facility] Comment on above: Performed By: #### B MP #### [facility] [address] [place], [place] [address] Dr. Deepak Greenfield Sodium [Moles/Vol] 136 mmol/L Normal 136-145 [facility] Comment on above: Performed By: #### B MP #### [facility] [address] [place], [place] [address] Dr. Deepak Greenfield Urea nitrogen [Mass/Vol] 13.0 mg/dL Normal 7.0-18.0 [facility] Comment on above: Performed By: #### B MP #### [facility] [address] [address] [address] Deepak Greenfield Urea nitrogen/Creatinine [Mass ratio] 20.0 mg/mg Normal [facility] Comment on above: Performed By: #### B MP #### [facility] [address] [place], [place] [address] Dr. Deepak Greenfield XR CHEST 1 Von [...] by: ANICETO GARCIA Date: 2022-07-26 12:27 Normal [facility] Consent for Treatmenton Consent for Treatment [id number] .[id number]:127 Normal [facility] Physician Orderon 07-23-2022 Physician Order [id number]# 1.00CD:127 Normal [facility] XR Adult Swallowing Function w/ Videoon [...] cleared with further swallowing. Ordering Provider: FAM ACEVEDO FINAL REPORT Dictated: 07/23/2022 11:52 am Fam Viramontes MD Signed (Electronic Signature): 07/23/2022 11:52 am Signed by: Fam Viramontes MD Transcribed by: CAMI Technologist: SARAVANAN Technical Comments Radiation Dose: Ka,r in mGy = 11.70 DAP = 270.92 Normal [facility] AMMONIAon 06-03-2022 Ammonia (P) [Moles/Vol] 112 umol/L Critically high 11-32 [facility] Comment on above: Performed By: #### A MM #### [facility] [address] [place] [address] Dr. Deepak Greenfield DEPAKENE/ VALPROIC ACIDon DEPAKENE 94.0 ug/ml Normal 50.0-100.0 [facility] Comment on above: Performed By: #### C BC #### [facility] [address] [place] [address] Dr. Deepak Greenfield LIVER PROFILEon 06-03-2022 Albumin [Mass/Vol] 3.6 g/dL Normal 3.4-5.0 [facility] Comment on above: Performed By: #### C BC #### [facility] [address] [place] [address] Dr. Deepak Greenfield Albumin/Globulin [Mass ratio] 0.9 {ratio} Normal [facility] Comment on above: Performed By: #### C BC #### [facility] [address] [address] [address] Deepak Greenfield ALP [Catalytic activity/Vol] 55 U/L Normal 46-116 [facility] Comment on above: Performed By: #### C BC #### [facility] [address] [place] [address] Dr. Deepak Greenfield ALT [Catalytic activity/Vol] 76 U/L Critically high 16-63 [facility] Comment on above: Performed By: #### C BC #### [facility] [address] [place] [address] Dr. Deepak Greenfield AST [Catalytic activity/Vol] 51 U/L Critically high 15-37 [facility] Comment on above: Performed By: #### C BC #### [facility] [address] [place] [address] Dr. Deepak Greenfield BILI, CONJUGATED 0.1 mg/dL Normal 0.0-0.2 [facility] Comment on above: Performed By: #### C BC #### [facility] [address] [place] [address] Dr. Deepak Greenfield Bilirubin [Mass/Vol] 0.4 mg/dL Normal 0.2-1.0 [facility] Comment on above: Performed By: #### C BC #### [facility] [address] [place] [address] Dr. Deepak Greenfield Globulin (S) [Mass/Vol] 4.1 g/dL Normal [facility] Comment on above: Performed By: #### C BC #### [facility] [address] [place] [address] Dr. Deepak Greenfield Protein [Mass/Vol] 7.7 g/dL Normal 6.4-8.2 [facility] Comment on above: Performed By: #### C BC #### [facility] [address] [place], [place] [id number] Dr. Deepak Greenfield AMMONIAon 04-22-2022 Ammonia (P) [Moles/Vol] 108 umol/L Critically high 11-32 [facility] Comment on above: Performed By: #### B MP #### [facility] [address] [place] [address] Dr. Deepak Greenfield CBC AUTO DIFFon 04-22-2022 BASO # 0.0 103/ul Normal 0.0-0.1 [facility] Comment on above: Performed By: #### C BC #### [facility] [address] [place] [address] Dr. Deepak Greenfield Basophils/100 WBC (Bld) 0.5 % Normal 0.2-2.0 [facility] Comment on above: Performed By: #### C BC #### [facility] [address] [place] [address] Dr. Deepak Greenfield EO # 0.1 103/ul Normal 0.0-0.7 [facility] Comment on above: Performed By: #### C BC #### [facility] [address] [place] [address] Dr. Deepak Greenfield Eosinophils/100 WBC (Bld) 1.4 % Normal 0.9-7.0 [facility] Comment on above: Performed By: #### C BC #### [facility] [address] [place] [address] Dr. Deepak Greenfield Erythrocyte distribution width (RBC) [Ratio] 14.2 % Normal 11.0-15.0 [facility] Comment on above: Performed By: #### C BC #### [facility] [address] [place] [address] Dr. Deepak Greenfield Hematocrit (Bld) [Volume fraction] 37.0 % Critically low 42.0-54.0 [facility] Comment on above: Performed By: #### C BC #### [facility] [address] [place] [address] Dr. Deepak Greenfield Hemoglobin (Bld) [Mass/Vol] 12.3 g/dL Critically low 14.0-18.0 [facility] Comment on above: Performed By: #### C BC #### [facility] [address] [place] [address] Dr. Deepak Greenfield IG # 0.00 10e3/ul Normal 0.00-0.03 [facility] Comment on above: Performed By: #### C BC #### [facility] [address] [place] [address] Dr. Deepak Greenfield IG % 0.0 % Normal 0.0-0.5 [facility] Comment on above: Performed By: #### C BC #### [facility] [address] [place] [address] Dr. Deepak Greenfield LYMPH # 3.3 103/ul Normal 1.2-3.8 [facility] Comment on above: Performed By: #### C BC #### [facility] [address] [place] [address] Dr. Deepak Greenfield Lymphocytes/100 WBC (Bld) 51.5 % Normal 20.5-60.0 [facility] Comment on above: Performed By: #### C BC #### [facility] [address] [place] [address] Dr. Deepak Greenfield MANUAL DIFF REQ NO Normal [facility] Comment on above: Performed By: #### C BC #### [facility] [address] [place] [address] Dr. Deepak Greenfield MCH (RBC) [Entitic mass] 32.2 pg Normal 25.9-34.0 [facility] Comment on above: Performed By: #### C BC #### [facility] [address] [place] [address] Dr. Deepak Greenfield MCHC (RBC) [Mass/Vol] 33.2 g/dL Normal 29.9-35.2 [facility] Comment on above: Performed By: #### C BC #### [facility] [address] [place] [address] Dr. Deepak Greenfield MCV (RBC) [Entitic vol] 96.9 fL Critically high 80.0-94.0 [facility] Comment on above: Performed By: #### C BC #### [facility] [address] [place] [address] Dr. Deepak Greenfield MONO # 0.6 103/ul Normal 0.3-0.8 [facility] Comment on above: Performed By: #### C BC #### [facility] [address] [place] [address] Dr. Deepak Greenfield Monocytes/100 WBC (Bld) 9.7 % Normal 1.7-12.0 [facility] Comment on above: Performed By: #### C BC #### [facility] [address] [place] [address] Dr. Deepak Greenfield NEUT # 2.4 103/ul Normal 1.4-6.5 [facility] Comment on above: Performed By: #### C BC #### [facility] [address] [place] [address] Dr. Deepak Greenfield Neutrophils/100 WBC (Bld) 36.9 % Critically low 43.0-75.0 [facility] Comment on above: Performed By: #### C BC #### [facility] [address] [place] [address] Dr. Deepak Greenfield Platelet mean volume (Bld) [Entitic vol] 10.2 fL Normal 9.5-13.5 [facility] Comment on above: Performed By: #### C BC #### [facility] [address] [place] [address] Dr. Deepak Greenfield PLT 248 103/ul Normal 150-450 [facility] Comment on above: Performed By: #### C BC #### [facility] [address] [place] [address] Dr. Deepak Greenfield RBC 3.82 106/ul Critically low 4.70-6.10 [facility] Comment on above: Performed By: #### C BC #### [facility] [address] [place] [address] Dr. Deepak Greenfield WBC 6.5 103/ul Normal 4.0-11.0 [facility] Comment on above: Performed By: #### C BC #### [facility] [address] [place] [address] Dr. Deepak Greenfield FERRITINon 01-04-2023 Ferritin [Mass/Vol] 152.0 ng/mL Normal 26.0-388.0 [facility] Comment on above: Performed By: #### Karishma House, CMP #### [facility] [address] [place] [address] Dr. Deepak Greenfield IRONon 04-22-2022 Iron [Mass/Vol] 136.0 ug/dL Normal 65.0-175.0 [facility] Comment on above: Performed By: #### Karishma House, CMP #### [facility] [address] [place] [address] Dr. Deepak Greenfield MAGNESIUMon 04-22-2022 Magnesium [Mass/Vol] 1.6 mg/dL Critically low 1.8-2.4 [facility] Comment on above: Performed By: #### I NFLUAB #### [facility] [address] [place] [address] Dr. Deepak Greenfield VITAMIN B12on 04-22-2022 Cobalamin (Vitamin B12) [Mass/Vol] 545.0 pg/mL Normal 193.0-986.0 [facility] Comment on above: Performed By: #### Karishma House, CMP #### [facility] [address] [place] [address] Dr. Deepak Greenfield CBC AUTO DIFFon 03-19-2022 BASO # 0.0 103/ul Normal 0.0-0.1 [facility] Comment on above: Performed By: #### Karishma House, CMP #### [facility] [address] [place] [address] Dr. Deepak Greenfield Basophils/100 WBC (Bld) 0.5 % Normal 0.2-2.0 [facility] Comment on above: Performed By: #### Karishma House, CMP #### [facility] [address] [place] [address] Dr. Deepak Greenfield EO # 0.2 103/ul Normal 0.0-0.7 [facility] Comment on above: Performed By: #### Karishma House, CMP #### [facility] [address] [place] [address] Dr. Deepak Greenfield Eosinophils/100 WBC (Bld) 2.0 % Normal 0.9-7.0 [facility] Comment on above: Performed By: #### M G, CMP #### [facility] [address] [place] [address] Dr. Deepak Greenfield Erythrocyte distribution width (RBC) [Ratio] 13.5 % Normal 11.0-15.0 [facility] Comment on above: Performed By: #### M G, CMP #### [facility] [address] [place] [address] Dr. Deepak Greenfield Hematocrit (Bld) [Volume fraction] 38.5 % Critically low 42.0-54.0 [facility] Comment on above: Performed By: #### M G, CMP #### [facility] [address] [place] [address] Dr. Deepak Greenfield Hemoglobin (Bld) [Mass/Vol] 12.6 g/dL Critically low 14.0-18.0 [facility] Comment on above: Performed By: #### M G, CMP #### [facility] [address] [place] [address] Dr. Deepak Greenfield IG # 0.02 10e3/ul Normal 0.00-0.03 [facility] Comment on above: Performed By: #### M G, CMP #### [facility] [address] [place] [address] Dr. Deepak Greenfield IG % 0.2 % Normal 0.0-0.5 [facility] Comment on above: Performed By: #### M G, CMP #### [facility] [address] [place] [address] Dr. Deepak Greenfield LYMPH # 3.1 103/ul Normal 1.2-3.8 [facility] Comment on above: Performed By: #### M G, CMP #### [facility] [address] [place] [address] Dr. Deepak Greenfield Lymphocytes/100 WBC (Bld) 36.2 % Normal 20.5-60.0 [facility] Comment on above: Performed By: #### M G, CMP #### [facility] [address] [place] [address] Dr. Deepak Greenfield MANUAL DIFF REQ NO Normal [facility] Comment on above: Performed By: #### M G, CMP #### [facility] [address] [place] [address] Dr. Deepak Greenfield MCH (RBC) [Entitic mass] 32.1 pg Normal 25.9-34.0 [facility] Comment on above: Performed By: #### M G, CMP #### [facility] [address] [place] [address] Dr. Deepak Greenfield MCHC (RBC) [Mass/Vol] 32.7 g/dL Normal 29.9-35.2 [facility] Comment on above: Performed By: #### M G, CMP #### [facility] [address] [place] [address] Dr. Deepak Greenfield MCV (RBC) [Entitic vol] 98.0 fL Critically high 80.0-94.0 [facility] Comment on above: Performed By: #### M G, CMP #### [facility] [address] [place] [address] Dr. Deepak Greenfield MONO # 0.9 103/ul Critically high 0.3-0.8 [facility] Comment on above: Performed By: #### M G, CMP #### [facility] [address] [place] [address] Dr. Deepak Greenfield Monocytes/100 WBC (Bld) 10.6 % Normal 1.7-12.0 [facility] Comment on above: Performed By: #### M G, CMP #### [facility] [address] [place] [address] Dr. Deepak Greenfield NEUT # 4.3 103/ul Normal 1.4-6.5 [facility] Comment on above: Performed By: #### M G, CMP #### [facility] [address] [place] [address] Dr. Deepak Greenfield Neutrophils/100 WBC (Bld) 50.5 % Normal 43.0-75.0 [facility] Comment on above: Performed By: #### M G, CMP #### [facility] [address] [address] [address] Deepak Greenfield Platelet mean volume (Bld) [Entitic vol] 9.9 fL Normal 9.5-13.5 [facility] Comment on above: Performed By: #### M G, CMP #### [facility] [address] [address] [address] Deepak Greenfield PLT 263 103/ul Normal 150-450 [facility] Comment on above: Performed By: #### M G, CMP #### [facility] [address] [place] [address] Dr. Deepak Greenfield RBC 3.93 106/ul Critically low 4.70-6.10 [facility] Comment on above: Performed By: #### M G, CMP #### [facility] [address] [place] [address] Dr. Deepak Greenfield WBC 8.6 103/ul Normal 4.0-11.0 [facility] Comment on above: Performed By: #### M G, CMP #### [facility] [address] [place] [address] Dr. Deepak Greenfield MAGNESIUMon 03-19-2022 Magnesium [Mass/Vol] 1.5 mg/dL Critically low 1.8-2.4 [facility] Comment on above: Performed By: #### M G, CMP #### [facility] [address] [place] [address] Dr. Deepak Greenfield PROF 14(COMP METB)on 022 Albumin [Mass/Vol] 3.4 g/dL Normal 3.4-5.0 [facility] Comment on above: Performed By: #### M G, CMP #### [facility] [address] [place] [address] Dr. Deepak Greenfield Albumin/Globulin [Mass ratio] 0.9 {ratio} Normal [facility] Comment on above: Performed By: #### M G, CMP #### [facility] [address] [place] [address] Dr. Deepak Greenfield ALP [Catalytic activity/Vol] 47 U/L Normal 46-116 [facility] Comment on above: Performed By: #### M G, CMP #### [facility] [address] [address] [address] Deepak Greenfield ALT [Catalytic activity/Vol] 48 U/L Normal 16-63 [facility] Comment on above: Performed By: #### M G, CMP #### [facility] [address] [address] [address] Deepak Greenfield Anion gap [Moles/Vol] 9.5 mmol/L Normal [facility] Comment on above: Performed By: #### M G, CMP #### [facility] [address] [address] [address] Deepak Greenfield AST [Catalytic activity/Vol] 30 U/L Normal 15-37 [facility] Comment on above: Performed By: #### M G, CMP #### [facility] [address] [address] [address] Deepak Greenfield Bilirubin [Mass/Vol] 0.2 mg/dL Normal 0.2-1.0 [facility] Comment on above: Performed By: #### M G, CMP #### [facility] [address] [address] [address] Deepak Greenfield Calcium [Mass/Vol] 8.7 mg/dL Normal 8.5-10.1 [facility] Comment on above: Performed By: #### M G, CMP #### [facility] [address] [address] [address] Deepak Greenfield Chloride [Moles/Vol] 105 mmol/L Normal 98-107 [facility] Comment on above: Performed By: #### M G, CMP #### [facility] [address] [address] [address] Deepak Greenfield CO2 [Moles/Vol] 32.6 mmol/L Critically high 21.0-32.0 [facility] Comment on above: Performed By: #### M G, CMP #### [facility] [address] [address] [address] Deepak Greenfield Creatinine [Mass/Vol] 0.70 mg/dL Normal 0.70-1.30 [facility] Comment on above: Performed By: #### M G, CMP #### [facility] [address] [address] [address] Deepak Greenfield EGFR-AF IRANIAN >60 Normal >=60 [facility] Comment on above: Performed By: #### M G, CMP #### [facility] [address] [address] [address] Deepak Greenfield EGFR-NON AF IRANIAN >60 Normal >=60 [facility] Comment on above: Performed By: #### M G, CMP #### [facility] [address] [address] [address] Deepak Greenfield Globulin (S) [Mass/Vol] 3.8 g/dL Normal [facility] Comment on above: Performed By: #### M G, CMP #### [facility] [address] [place] [address] Dr. Deepak Greenfield Glucose [Mass/Vol] 98 mg/dL Normal 74-106 [facility] Comment on above: Performed By: #### M G, CMP #### [facility] [address] [place] [address] Dr. Deepak Greenfield Potassium [Moles/Vol] 4.1 mmol/L Normal 3.5-5.1 [facility] Comment on above: Performed By: #### M G, CMP #### [facility] [address] [place] [address] Dr. Deepak Greenfield Protein [Mass/Vol] 7.2 g/dL Normal 6.4-8.2 [facility] Comment on above: Performed By: #### M G, CMP #### [facility] [address] [place] [address] Dr. Deepak Greenfield Sodium [Moles/Vol] 143 mmol/L Normal 136-145 [facility] Comment on above: Performed By: #### M G, CMP #### [facility] [address] [address] [address] Deepak Greenfield Urea nitrogen [Mass/Vol] 10.0 mg/dL Normal 7.0-18.0 [facility] Comment on above: Performed By: #### M G, CMP #### [facility] [address] [place] [address] Dr. Deepak Greenfield Urea nitrogen/Creatinine [Mass ratio] 14.3 mg/mg Normal [facility] Comment on above: Performed By: #### M G, CMP #### [facility] [address] [place] [address] Dr. Deepak Greenfield VITAMIN D 25 OHon 03-19-2022 VIT D 25-OH 67.5 ng/mL Normal [facility] Comment on above: Performed By: #### M G, CMP #### [facility] [address] [place] [address] Dr. Deepak Greenfield VIT D RANGES SEE BELOW Normal [facility] Comment on above: Result Comment: <20 ng/mL Vit D deficient 20 - <30 ng/mL Vit D insufficient 30 - 100 ng/mL Vit D sufficient >100 ng/mL Potential Toxicity Performed By: #### M Lacy, CMP #### [facility] [address] [place] [address] Dr. Deepak Greenfield AMMONIAon 03-10-2022 Ammonia (P) [Moles/Vol] 36 umol/L Critically high [facility] Comment on above: Performed By: #### C BC #### [facility] [address] [place] [address] Dr. Deepak Greenfield DEPAKENE/ VALPROIC ACIDon DEPAKENE 93.5 ug/ml Normal 50.0-100.0 [facility] Comment on above: Performed By: #### B MP #### [facility] [address] [place] [address] Dr. Deepak Greenfield BNPon 01-24-2022 Natriuretic peptide B (Bld) [Mass/Vol] 183.0 pg/mL Normal <=450.0 [facility] Comment on above: Performed By: #### M Lacy, CMP #### [facility] [address] [place] [address] Dr. Deepak Greenfield CBC AUTO DIFFon 01-24-2022 BASO # 0.0 103/ul Normal 0.0-0.1 [facility] Comment on above: Performed By: #### C VDTBH #### [facility] [address] [place] [address] Dr. Deepak Greenfield Basophils/100 WBC (Bld) 0.3 % Normal 0.2-2.0 [facility] Comment on above: Performed By: #### C VDTBH #### [facility] [address] [place] [address] Dr. Deepak Greenfield EO # 0.1 103/ul Normal 0.0-0.7 [facility] Comment on above: Performed By: #### C VDTBH #### [facility] [address] [place] [address] Dr. Deepak Greenfield Eosinophils/100 WBC (Bld) 0.4 % Critically low 0.9-7.0 [facility] Comment on above: Performed By: #### C VDTBH #### [facility] [address] [place] [address] Dr. Deepak Greenfield Erythrocyte distribution width (RBC) [Ratio] 13.6 % Normal 11.0-15.0 [facility] Comment on above: Performed By: #### C VDTBH #### [facility] [address] [place] [address] Dr. Deepak Greenfield Hematocrit (Bld) [Volume fraction] 39.3 % Critically low 42.0-54.0 [facility] Comment on above: Performed By: #### C VDTBH #### [facility] [address] [place] [address] Dr. Deepak Greenfield Hemoglobin (Bld) [Mass/Vol] 12.6 g/dL Critically low 14.0-18.0 [facility] Comment on above: Performed By: #### C VDTBH #### [facility] [address] [place] [address] Dr. Deepak Greenfield IG # 0.04 10e3/ul Critically high 0.00-0.03 [facility] Comment on above: Performed By: #### C VDTBH #### [facility] [address] [place] [address] Dr. Deepak Greenfield IG % 0.3 % Normal 0.0-0.5 [facility] Comment on above: Performed By: #### C VDTBH #### [facility] [address] [place] [address] Dr. Deepak Greenfield LYMPH # 2.4 103/ul Normal 1.2-3.8 [facility] Comment on above: Performed By: #### C VDTBH #### [facility] [address] [place] [address] Dr. Deepak Greenfield Lymphocytes/100 WBC (Bld) 16.6 % Critically low 20.5-60.0 [facility] Comment on above: Performed By: #### C VDTBH #### [facility] [address] [place] [address] Dr. Deepak Greenfield MANUAL DIFF REQ NO Normal [facility] Comment on above: Performed By: #### C VDTBH #### [facility] [address] [place] [address] Dr. Deepak Greenfield MCH (RBC) [Entitic mass] 32.0 pg Normal 25.9-34.0 [facility] Comment on above: Performed By: #### C VDTBH #### [facility] [address] [place] [address] Dr. Deepak Greenfield MCHC (RBC) [Mass/Vol] 32.1 g/dL Normal 29.9-35.2 [facility] Comment on above: Performed By: #### C VDTBH #### [facility] [address] [place] [address] Dr. Deepak Greenfield MCV (RBC) [Entitic vol] 99.7 fL Critically high 80.0-94.0 [facility] Comment on above: Performed By: #### C VDTBH #### [facility] [address] [place] [address] Dr. Deepak Greenfield MONO # 1.4 103/ul Critically high 0.3-0.8 [facility] Comment on above: Performed By: #### C VDTBH #### [facility] [address] [place] [address] Dr. Deepak Greenfield Monocytes/100 WBC (Bld) 9.8 % Normal 1.7-12.0 [facility] Comment on above: Performed By: #### C VDTBH #### [facility] [address] [place] [address] Dr. Deepak Greenfield NEUT # 10.7 103/ul Critically high 1.4-6.5 [facility] Comment on above: Performed By: #### C VDTBH #### [facility] [address] [place] [address] Dr. Deepak Greenfield Neutrophils/100 WBC (Bld) 72.6 % Normal 43.0-75.0 [facility] Comment on above: Performed By: #### C VDTBH #### [facility] [address] [place] [address] Dr. Deepak Greenfield Platelet mean volume (Bld) [Entitic vol] 10.4 fL Normal 9.5-13.5 [facility] Comment on above: Performed By: #### C VDTBH #### [facility] [address] [place] [address] Dr. Deepak Greenfield PLT 280 103/ul Normal 150-450 [facility] Comment on above: Performed By: #### C VDTBH #### [facility] [address] [place] [address] Dr. Deepak Greenfield RBC 3.94 106/ul Critically low 4.70-6.10 [facility] Comment on above: Performed By: #### C VDTBH #### [facility] [address] [place] [address] Dr. Deepak Greenfield WBC 14.7 103/ul Critically high 4.0-11.0 [facility] Comment on above: Performed By: #### C VDTBH #### [facility] [address] [place] [address] Dr. Deepak Greenfield CULTURE BLOODon 01-24-2022 Microscopic examination of blood, culture Culture Observations: No growth at 5 days. Normal [facility] Comment on above: Performed By: #### C BC #### [facility] [address] [place] [address] Dr. Deepak Greenfield Microscopic examination of blood, culture Culture Observations: No growth at 5 days. Normal [facility] Comment on above: Performed By: #### C BC #### [facility] [address] [place] [address] Dr. Deepak Greenfield [facility]on SARS-CoV-2 (COVID-19) RNA CINDY+probe Ql (Unsp spec) Not detected Normal NOT DETECTED [facility] Comment on above: Result Comment: [...] for this test is supported by the [employer] of [employer] and Human Service's declaration that [...] used). Performed By: #### I NFLUAB #### [facility] [address] [place] [address] Dr. Deepak Greenfield LACTATE/LACTIC ACIDon 2021 Lactate [Moles/Vol] 1.7 mmol/L Normal 0.4-1.9 [facility] Comment on above: Performed By: #### M G, CMP #### [facility] [address] [place] [address] Dr. Deepak Greenfield PROF 14(COMP METB)on 022 Albumin [Mass/Vol] 3.2 g/dL Critically low 3.4-5.0 [facility] Comment on above: Performed By: #### M G, CMP #### [facility] [address] [place], [place] [id number] Dr. Deepak Greenfield Albumin/Globulin [Mass ratio] 0.7 {ratio} Normal [facility] Comment on above: Performed By: #### M G, CMP #### [facility] [address] [place] [address] Dr. Deepak Greenfield ALP [Catalytic activity/Vol] 49 U/L Normal 46-116 [facility] Comment on above: Performed By: #### M G, CMP #### [facility] [address] [place] [address] Dr. Deepak Greenfield ALT [Catalytic activity/Vol] 41 U/L Normal 16-63 [facility] Comment on above: Performed By: #### M G, CMP #### [facility] [address] [place] [address] Dr. Deepak Greenfield Anion gap [Moles/Vol] 11.1 mmol/L Normal [facility] Comment on above: Performed By: #### Karishma House, CMP #### [facility] [address] [place] [address] Dr. Deepak Greenfield AST [Catalytic activity/Vol] 29 U/L Normal 15-37 [facility] Comment on above: Performed By: #### M Lacy, CMP #### [facility] [address] [place] [address] Dr. Deepak Greenfield Bilirubin [Mass/Vol] 0.5 mg/dL Normal 0.2-1.0 [facility] Comment on above: Performed By: #### Karishma House, CMP #### [facility] [address] [place] [address] Dr. Deepak Greenfield Calcium [Mass/Vol] 9.1 mg/dL Normal 8.5-10.1 [facility] Comment on above: Performed By: #### M G, CMP #### [facility] [address] [place] [address] Dr. Deepak Greenfield Chloride [Moles/Vol] 108 mmol/L Critically high 98-107 [facility] Comment on above: Performed By: #### M G, CMP #### [facility] [address] [place] [address] Dr. Deepak Greenfield CO2 [Moles/Vol] 25.7 mmol/L Normal 21.0-32.0 [facility] Comment on above: Performed By: #### M G, CMP #### [facility] [address] [place] [address] Dr. Deepak Greenfield Creatinine [Mass/Vol] 0.89 mg/dL Normal 0.70-1.30 [facility] Comment on above: Performed By: #### M G, CMP #### [facility] [address] [place] [address] Dr. Deepak Greenfield EGFR-AF IRANIAN >60 Normal >=60 [facility] Comment on above: Performed By: #### M G, CMP #### [facility] [address] [place] [address] Dr. Deepak Greenfield EGFR-NON AF IRANIAN >60 Normal >=60 [facility] Comment on above: Performed By: #### M G, CMP #### [facility] [address] [place] [address] Dr. Deepak Greenfield Globulin (S) [Mass/Vol] 4.5 g/dL Normal [facility] Comment on above: Performed By: #### M G, CMP #### [facility] [address] [place] [address] Dr. Deepak Greenfield Glucose [Mass/Vol] 178 mg/dL Critically high 74-106 [facility] Comment on above: Performed By: #### M G, CMP #### [facility] [address] [place] [address] Dr. Deepak Greenfield Potassium [Moles/Vol] 3.8 mmol/L Normal 3.5-5.1 [facility] Comment on above: Performed By: #### M G, CMP #### [facility] [address] [place] [address] Dr. Deepak Greenfield Protein [Mass/Vol] 7.7 g/dL Normal 6.4-8.2 [facility] Comment on above: Performed By: #### M G, CMP #### [facility] [address] [place] [address] Dr. Deepak Greenfield Sodium [Moles/Vol] 141 mmol/L Normal 136-145 [facility] Comment on above: Performed By: #### M Lacy, CMP #### [facility] [address] [address] [address] Deepak Greenfield Urea nitrogen [Mass/Vol] 16.0 mg/dL Normal 7.0-18.0 [facility] Comment on above: Performed By: #### Karishma House, CMP #### [facility] [address] [address] [address] Deepak Greenfield Urea nitrogen/Creatinine [Mass ratio] 18.0 mg/mg Normal [facility] Comment on above: Performed By: #### Karishma House, CMP #### [facility] [address] [place] [address] Dr. Deepak Greenfield TROPONIN, HIGH SENSITIVITYon 01-24-2022 HSTROP 6.4 pg/mL Normal 4.0-76.1 [facility] Comment on above: Result Comment: CUT- OFF POINTS HAVE BEEN ESTABLISHED BASED ON THE FOURTH UNIVERSAL DEFINITIONS OF MYOCARDIAL INFARCTION. THE UPPER REFERENCE LIMIT (URL) OF TROPONIN, DEFINED THE 99TH PERCENTILE OF cTnI DISTRIBUTION IN A REFERENCE POPULATION, HAS BEEN CONFIRMED THE DECISION THRESHOLD FOR OK DIAGNOSIS. Performed By: #### Karishma House, CMP #### [facility] [address] [place] [address] Dr. Deepak Greenfield XR CHEST 1 Von [...] ANICETO CROCKER Date: 2022-01-24 15:28 Normal [facility] UA RANDOM W/MICROSCOPICon BACTERIA NONE SEEN Normal NONE SEEN [facility] Comment on above: Performed By: #### C VDTBH #### [facility] [address] [address] [address] Deepak Greenfield Bilirubin Ql (U) Negative Normal NEGATIVE [facility] Comment on above: Performed By: #### C VDTBH #### [facility] [address] [place] [address] Dr. Deepak Greenfield CAST NONE SEEN Normal NONE SEEN [facility] Comment on above: Performed By: #### C VDTBH #### [facility] [address] [place] [address] Dr. Deepak Greenfield Clarity (U) CLEAR Normal CLEAR [facility] Comment on above: Performed By: #### C VDTBH #### [facility] [address] [place] [address] Dr. Deepak Greenfield Color (U) YELLOW Normal YELLOW [facility] Comment on above: Performed By: #### C VDTBH #### [facility] [address] [place] [address] Dr. Deepak Greenfield Crystals LM Nom (Urine sed) NONE SEEN Normal NONE SEEN [facility] Comment on above: Performed By: #### C VDTBH #### [facility] [address] [place] [address] Dr. Deepak Greenfield Epithelial cells LM Ql (Urine sed) RARE Normal NONE SEEN /RARE [facility] Comment on above: Performed By: #### C VDTBH #### [facility] [address] [place] [address] Dr. Deepak Greenfield Glucose Ql (U) Negative Normal NEGATIVE [facility] Comment on above: Performed By: #### C VDTBH #### [facility] [address] [place] [address] Dr. Deepak Greenfield Hemoglobin Ql (U) Negative Normal NEGATIVE [facility] Comment on above: Performed By: #### C VDTBH #### [facility] [address] [place] [address] Dr. Deepak Greenfield Ketones Ql (U) 15 mg/dl Abnormal NEGATIVE [facility] Comment on above: Performed By: #### C VDTBH #### [facility] [address] [place] [address] Dr. Deepak Greenfield LEUKOCYTES Negative Normal NEGATIVE [facility] Comment on above: Performed By: #### C VDTBH #### [facility] [address] [place] [address] Dr. Deepak Greenfield MUCOUS NONE SEEN Normal NONE SEEN [facility] Comment on above: Performed By: #### C VDTBH #### [facility] [address] [place] [address] Dr. Deepak Greenfield Nitrite Ql (U) Negative Normal NEGATIVE [facility] Comment on above: Performed By: #### C VDTBH #### [facility] [address] [place] [address] Dr. Deepak Greenfield pH (U) 6.0 [pH] Normal 5-9 [facility] Comment on above: Performed By: #### C VDTBH #### [facility] [address] [place] [address] Dr. Deepak Greenfield RBC 0-2 Normal 0-2 [facility] Comment on above: Performed By: #### C VDTBH #### [facility] [address] [place] [address] Dr. Deepak Greenfield SPEC GRAVITY 1.020 Normal 1.005-<=1.025 [facility] Comment on above: Performed By: #### C VDTBH #### [facility] [address] [place] [address] Dr. Deepak Greenfield UA PROTEIN Negative Normal NEGATIVE/ TRACE [facility] Comment on above: Performed By: #### C VDTBH #### [facility] [address] [place] [address] Dr. Deepak Greenfield Urobilinogen Qn (U) 0.2 {Ottoniel'U}/dL Normal 0.2 - 1. 0 [facility] Comment on above: Performed By: #### C VDTBH #### [facility] [address] [place] [address] Dr. Deepak Greenfield WBC NONE SEEN Normal NONE SEEN [facility] Comment on above: Performed By: #### C VDTBH #### [facility] [address] [place] [address] Dr. Deepak Greenfield ALBUMINon 01-12-2022 Albumin [Mass/Vol] 3.4 g/dL Normal 3.4-5.0 [facility] Comment on above: Performed By: #### C VDTBH #### [facility] [address] [place] [address] Dr. Deepak Greenfield ALKALINE PHOSPHAon ALP [Catalytic activity/Vol] 46 U/L Normal 46-116 [facility] Comment on above: Performed By: #### C VDTBH #### [facility] [address] [place] [address] Dr. Deepak Greenfield AMMONIAon 01-12-2022 Ammonia (P) [Moles/Vol] 93 umol/L Critically high 11-32 [facility] Comment on above: Performed By: #### I NFLUAB #### [facility] [address] [place] [address] Dr. Deepak Greenfield BILIRUBIN CONJUGATED (DIRECT )on 01-12-2022 BILI, CONJUGATED 0.1 mg/dL Normal 0.0-0.2 [facility] Comment on above: Performed By: #### C VDTBH #### [facility] [address] [place] [address] Dr. Deepak Greenfield BILIRUBIN TOTALon 01-12-2022 Bilirubin [Mass/Vol] 0.4 mg/dL Normal 0.2-1.0 [facility] Comment on above: Performed By: #### C VDTBH #### [facility] [address] [place] [address] Dr. Deepak Greenfield CBC AUTO DIFFon 01-12-2022 BASO # 0.0 103/ul Normal 0.0-0.1 [facility] Comment on above: Performed By: #### M G, CMP #### [facility] [address] [place] [address] Dr. Deepak Greenfield Basophils/100 WBC (Bld) 0.3 % Normal 0.2-2.0 [facility] Comment on above: Performed By: #### M G, CMP #### [facility] [address] [place] [address] Dr. Deepak Greenfield EO # 0.1 103/ul Normal 0.0-0.7 [facility] Comment on above: Performed By: #### M G, CMP #### [facility] [address] [place] [address] Dr. Deepak Greenfield Eosinophils/100 WBC (Bld) 1.3 % Normal 0.9-7.0 [facility] Comment on above: Performed By: #### M G, CMP #### [facility] [address] [place] [address] Dr. Deepak Greenfield Erythrocyte distribution width (RBC) [Ratio] 14.2 % Normal 11.0-15.0 [facility] Comment on above: Performed By: #### M G, CMP #### [facility] [address] [place] [address] Dr. Deepak Greenfield Hematocrit (Bld) [Volume fraction] 40.4 % Critically low 42.0-54.0 [facility] Comment on above: Performed By: #### M G, CMP #### [facility] [address] [place] [address] Dr. Deepak Greenfield Hemoglobin (Bld) [Mass/Vol] 13.1 g/dL Critically low 14.0-18.0 [facility] Comment on above: Performed By: #### M G, CMP #### [facility] [address] [place] [address] Dr. Deepak Greenfield IG # 0.01 10e3/ul Normal 0.00-0.03 [facility] Comment on above: Performed By: #### M G, CMP #### [facility] [address] [place] [address] Dr. Deepak Greenfield IG % 0.1 % Normal 0.0-0.5 [facility] Comment on above: Performed By: #### M G, CMP #### [facility] [address] [place] [address] Dr. Deepak Greenfield LYMPH # 3.3 103/ul Normal 1.2-3.8 [facility] Comment on above: Performed By: #### M G, CMP #### [facility] [address] [place] [address] Dr. Deepak Greenfield Lymphocytes/100 WBC (Bld) 42.3 % Normal 20.5-60.0 [facility] Comment on above: Performed By: #### M G, CMP #### [facility] [address] [place] [address] Dr. Deepak Greenfield MANUAL DIFF REQ NO Normal [facility] Comment on above: Performed By: #### M G, CMP #### [facility] [address] [place] [address] Dr. Deepak Greenfield MCH (RBC) [Entitic mass] 32.4 pg Normal 25.9-34.0 [facility] Comment on above: Performed By: #### M G, CMP #### [facility] [address] [place] [address] Dr. Deepak Greenfield MCHC (RBC) [Mass/Vol] 32.4 g/dL Normal 29.9-35.2 [facility] Comment on above: Performed By: #### M G, CMP #### [facility] [address] [place] [address] Dr. Deepak Greenfield MCV (RBC) [Entitic vol] 100.0 fL Critically high 80.0-94.0 [facility] Comment on above: Performed By: #### M G, CMP #### [facility] [address] [place] [address] Dr. Deepak Greenfield MONO # 0.6 103/ul Normal 0.3-0.8 [facility] Comment on above: Performed By: #### M G, CMP #### [facility] [address] [place] [address] Dr. Deepak Greenfield Monocytes/100 WBC (Bld) 7.6 % Normal 1.7-12.0 [facility] Comment on above: Performed By: #### M G, CMP #### [facility] [address] [place] [address] Dr. Deepak Greenfield NEUT # 3.8 103/ul Normal 1.4-6.5 [facility] Comment on above: Performed By: #### M G, CMP #### [facility] [address] [place] [address] Dr. Deepak Greenfield Neutrophils/100 WBC (Bld) 48.4 % Normal 43.0-75.0 [facility] Comment on above: Performed By: #### M G, CMP #### [facility] [address] [place] [address] Dr. Deepak Greenfield Platelet mean volume (Bld) [Entitic vol] 9.6 fL Normal 9.5-13.5 [facility] Comment on above: Performed By: #### Karishma G, CMP #### [facility] [address] [place] [address] Dr. Deepak Greenfield PLT 315 103/ul Normal 150-450 [facility] Comment on above: Performed By: #### M G, CMP #### [facility] [address] [place] [address] Dr. Deepak Greenfield RBC 4.04 106/ul Critically low 4.70-6.10 [facility] Comment on above: Performed By: #### Karishma House, CMP #### [facility] [address] [place] [address] Dr. Deepak Greenfield WBC 7.9 103/ul Normal 4.0-11.0 [facility] Comment on above: Performed By: #### Karishma G, CMP #### [facility] [address] [place] [address] Dr. Deepak Greenfield DEPAKENE/VALPROICon 01-13-20 22 DEPAKENE 89.7 ug/ml Normal 50.0-100.0 [facility] Comment on above: Performed By: #### I NFLUAB #### [facility] [address] [place] [address] Dr. Deepak Greenfield PROF CHEM 8 (BAS METB)on Anion gap [Moles/Vol] 12.9 mmol/L Normal [facility] Comment on above: Performed By: #### I NFLUAB #### [facility] [address] [place] [address] Dr. Deepak Greenfield Calcium [Mass/Vol] 8.8 mg/dL Normal 8.5-10.1 [facility] Comment on above: Performed By: #### I NFLUAB #### [facility] [address] [address] [address] Deepak Greenfield Chloride [Moles/Vol] 103 mmol/L Normal 98-107 [facility] Comment on above: Performed By: #### I NFLUAB #### [facility] [address] [address] [address] Deepak Greenfield CO2 [Moles/Vol] 28.1 mmol/L Normal 21.0-32.0 [facility] Comment on above: Performed By: #### I NFLUAB #### [facility] [address] [address] [address] Deepak Greenfield Creatinine [Mass/Vol] 0.58 mg/dL Critically low 0.70-1.30 [facility] Comment on above: Performed By: #### I NFLUAB #### [facility] [address] [address] [address] Deepak Greenfield EGFR-AF IRANIAN >60 Normal >=60 [facility] Comment on above: Performed By: #### I NFLUAB #### [facility] [address] [address] [address] Deepak Greenfield EGFR-NON AF IRANIAN >60 Normal >=60 [facility] Comment on above: Performed By: #### I NFLUAB #### [facility] [address] [address] [address] Deepak Greenfield Glucose [Mass/Vol] 117 mg/dL Critically high 74-106 [facility] Comment on above: Performed By: #### I NFLUAB #### [facility] [address] [address] [address] Deepak Greenfield Potassium [Moles/Vol] 4.0 mmol/L Normal 3.5-5.1 [facility] Comment on above: Performed By: #### I NFLUAB #### [facility] [address] [address] [address] Deepak Greenfield Sodium [Moles/Vol] 140 mmol/L Normal 136-145 [facility] Comment on above: Performed By: #### I NFLUAB #### [facility] [address] [address] [address] Deepak Greenfield Urea nitrogen [Mass/Vol] 7.0 mg/dL Normal 7.0-18.0 [facility] Comment on above: Performed By: #### I NFLUAB #### [facility] [address] [place] [address] Dr. Deepak Greenfield Urea nitrogen/Creatinine [Mass ratio] 12.1 mg/mg Normal [facility] Comment on above: Performed By: #### I NFLUAB #### [facility] [address] [place] [address] Dr. Deepak Greenfield SGOTon 01-12-2022 AST [Catalytic activity/Vol] 31 U/L Normal 15-37 [facility] Comment on above: Performed By: #### C VDTBH #### [facility] [address] [place] [address] Dr. Deepak Greenfield SGPTon 01-12-2022 ALT [Catalytic activity/Vol] 48 U/L Normal 16-63 [facility] Comment on above: Performed By: #### C VDTBH #### [facility] [address] [place] [address] Dr. Deepak Greenfield T PROTEIN SERUMon 01-12-2022 Protein [Mass/Vol] 7.3 g/dL Normal 6.4-8.2 [facility] Comment on above: Performed By: #### B MP #### [facility] [address] [place] [address] Dr. Deepak Greenfield XR CHEST 2 Von [...] by: ANICETO CROCKER Date: 2022-01-06 16:15 Normal [facility] XR DEXA BONE DENSITYon 11-20 XR [...] MARGARITO DAVIES Date: 2021-11-20 11:42 Normal [facility] US SCROTUMon 11-14-2021 US SCROTUM EXAMINATION: [...] KRISTIAN BILLINGS Date: 2021-11-14 07:10 Normal [facility] AMMONIAon 10-31-2021 Ammonia (P) [Moles/Vol] 88 umol/L Critically high 11-32 [facility] Comment on above: Performed By: #### M G, CMP #### [facility] [address] [place] [address] Dr. Deepak Greenfield AMMONIAon 10-30-2021 Ammonia (P) [Moles/Vol] 103 umol/L Critically high 11-32 [facility] Comment on above: Result Comment: SPEC IMEN SLIGHTLY HEMOLYZED MAY AFFECT AMM RESULT Performed By: #### I NFLUAB #### [facility] [address] [place] [address] Dr. Deepak Greenfield WOUND CULTUREon 10-23-2021 Bacteria identified Aer cx Nom (Unsp spec) Final report Normal [facility] Comment on above: Performed By: #### C XWND #### [facility] [address] [place] [address] Dr. Deepak Greenfield Result 1 Comment Normal [facility] Comment on above: Result Comment: No g rowth in 36 - 48 hours. Performed By: #### C XWND #### [facility] [address] [place] [address] Dr. Deepak Greenfield WOUND CULTUREon 10-02-2021 Bacteria identified Aer cx Nom (Unsp spec) Final report Normal [facility] Comment on above: Performed By: #### A MM #### [facility] [address] [place] [address] Dr. Deepak Greenfield Result 1 Mixed skin omid Normal [facility] Comment on above: Performed By: #### A MM #### [facility] [address] [place] [address] Dr. Deepak Greenfield AMYLASEon 09-22-2021 Amylase [Catalytic activity/Vol] 24 U/L Critically low 25-115 [facility] Comment on above: Performed By: #### C BC #### [facility] [address] [place] [address] Dr. Deepak Greenfield CBC AUTO DIFFon 09-22-2021 BASO # 0.0 103/ul Normal 0.0-0.1 [facility] Comment on above: Performed By: #### C VDTBH #### [facility] [address] [place] [address] Dr. Deepak Greenfield Basophils/100 WBC (Bld) 0.5 % Normal 0.2-2.0 [facility] Comment on above: Performed By: #### C VDTBH #### [facility] [address] [place] [address] Dr. Deepak Greenfield EO # 0.1 103/ul Normal 0.0-0.7 [facility] Comment on above: Performed By: #### C VDTBH #### [facility] [address] [place] [address] Dr. Deepak Greenfield Eosinophils/100 WBC (Bld) 1.3 % Normal 0.9-7.0 [facility] Comment on above: Performed By: #### C VDTBH #### [facility] [address] [place] [address] Dr. Deepak Greenfield Erythrocyte distribution width (RBC) [Ratio] 13.9 % Normal 11.0-15.0 [facility] Comment on above: Performed By: #### C VDTBH #### [facility] [address] [place] [address] Dr. Deepak Greenfield Hematocrit (Bld) [Volume fraction] 40.0 % Critically low 42.0-54.0 [facility] Comment on above: Performed By: #### C VDTBH #### [facility] [address] [place] [address] Dr. Deepak Greenfield Hemoglobin (Bld) [Mass/Vol] 13.0 g/dL Critically low 14.0-18.0 [facility] Comment on above: Performed By: #### C VDTBH #### [facility] [address] [place] [address] Dr. Deepak Greenfield IG # 0.01 10e3/ul Normal 0.00-0.03 [facility] Comment on above: Performed By: #### C VDTBH #### [facility] [address] [place] [address] Dr. Deepak Greenfield IG % 0.2 % Normal 0.0-0.5 [facility] Comment on above: Performed By: #### C VDTBH #### [facility] [address] [address] [address] Deepak Greenfield LYMPH # 3.0 103/ul Normal 1.2-3.8 [facility] Comment on above: Performed By: #### C VDTBH #### [facility] [address] [address] [address] Deepak Greenfield Lymphocytes/100 WBC (Bld) 47.9 % Normal 20.5-60.0 [facility] Comment on above: Performed By: #### C VDTBH #### [facility] [address] [address] [address] Deepak Greenfield MANUAL DIFF REQ NO Normal [facility] Comment on above: Performed By: #### C VDTBH #### [facility] [address] [place] [address] Dr. Deepak Greenfield MCH (RBC) [Entitic mass] 32.9 pg Normal 25.9-34.0 [facility] Comment on above: Performed By: #### C VDTBH #### [facility] [address] [place] [address] Dr. Deepak Greenfield MCHC (RBC) [Mass/Vol] 32.5 g/dL Normal 29.9-35.2 [facility] Comment on above: Performed By: #### C VDTBH #### [facility] [address] [place] [address] Dr. Deepak Greenfield MCV (RBC) [Entitic vol] 101.3 fL Critically high 80.0-94.0 [facility] Comment on above: Performed By: #### C VDTBH #### [facility] [address] [address] [address] Deepak Greenfield MONO # 0.7 103/ul Normal 0.3-0.8 [facility] Comment on above: Performed By: #### C VDTBH #### [facility] [address] [place] [address] Dr. Deepak Greenfield Monocytes/100 WBC (Bld) 10.3 % Normal 1.7-12.0 [facility] Comment on above: Performed By: #### C VDTBH #### [facility] [address] [address] [address] Deepak Greenfield NEUT # 2.5 103/ul Normal 1.4-6.5 [facility] Comment on above: Performed By: #### C VDTBH #### [facility] [address] [address] [address] Deepak Greenfield Neutrophils/100 WBC (Bld) 39.8 % Critically low 43.0-75.0 [facility] Comment on above: Performed By: #### C VDTBH #### [facility] [address] [address] [address] Deepak Greenfield Platelet mean volume (Bld) [Entitic vol] 10.1 fL Normal 9.5-13.5 [facility] Comment on above: Performed By: #### C VDTBH #### [facility] [address] [address] [address] Deepak Greenfield PLT 311 103/ul Normal 150-450 [facility] Comment on above: Performed By: #### C VDTBH #### [facility] [address] [address] [address] Deepak Greenfield RBC 3.95 106/ul Critically low 4.70-6.10 [facility] Comment on above: Performed By: #### C VDTBH #### [facility] [address] [address] [address] Deepak Greenfield WBC 6.3 103/ul Normal 4.0-11.0 [facility] Comment on above: Performed By: #### C VDTBH #### [facility] [address] [place] [address] ABD/PELV W CONon [...] by: JAMIE ALICIA Date: 2021-09-22 02:34 Normal [facility] CT HEAD WO CONon 09-22-2021 CT [...] BRITTON FONTENOT Date: 2021-09-22 01:13 Normal [facility] LIPASEon 09-22-2021 Lipase [Catalytic activity/Vol] 28.0 U/L Critically low 73.0-393.0 [facility] Comment on above: Performed By: #### C BC #### [facility] [address] [place] [address] Dr. Deepak Greenfield PROF 14(COMP METB)on 022 Albumin [Mass/Vol] 3.3 g/dL Critically low 3.4-5.0 [facility] Comment on above: Performed By: #### B MP #### [facility] [address] [place] [address] Dr. Deepak Greenfield Albumin/Globulin [Mass ratio] 0.9 {ratio} Normal [facility] Comment on above: Performed By: #### B MP #### [facility] [address] [place] [address] Dr. Deepak Greenfield ALP [Catalytic activity/Vol] 38 U/L Critically low 46-116 [facility] Comment on above: Performed By: #### B MP #### [facility] [address] [place] [address] Dr. Deepak Greenfield ALT [Catalytic activity/Vol] 91 U/L Critically high 16-63 [facility] Comment on above: Performed By: #### B MP #### [facility] [address] [place] [address] Dr. Deepak Greenfield Anion gap [Moles/Vol] 10.2 mmol/L Normal [facility] Comment on above: Performed By: #### B MP #### [facility] [address] [place] [address] Dr. Deepak Greenfield AST [Catalytic activity/Vol] 50 U/L Critically high 15-37 [facility] Comment on above: Performed By: #### B MP #### [facility] [address] [place] [address] Dr. Deepak Greenfield Bilirubin [Mass/Vol] 0.3 mg/dL Normal 0.2-1.0 [facility] Comment on above: Performed By: #### B MP #### [facility] [address] [place] [address] Dr. Deepak Greenfield Calcium [Mass/Vol] 8.6 mg/dL Normal 8.5-10.1 [facility] Comment on above: Performed By: #### B MP #### [facility] [address] [place] [address] Dr. Deepak Greenfield Chloride [Moles/Vol] 106 mmol/L Normal 98-107 [facility] Comment on above: Performed By: #### B MP #### [facility] [address] [place] [address] Dr. Deepak Greenfield CO2 [Moles/Vol] 29.9 mmol/L Normal 21.0-32.0 [facility] Comment on above: Performed By: #### B MP #### [facility] [address] [place] [address] Dr. Deepak Greenfield Creatinine [Mass/Vol] 0.65 mg/dL Critically low 0.70-1.30 [facility] Comment on above: Performed By: #### B MP #### [facility] [address] [place] [address] Dr. Deepak Greenfield EGFR-AF IRANIAN >60 Normal >=60 [facility] Comment on above: Performed By: #### B MP #### [facility] [address] [place] [address] Dr. Deepak Greenfield EGFR-NON AF IRANIAN >60 Normal >=60 [facility] Comment on above: Performed By: #### B MP #### [facility] [address] [place] [address] Dr. Deepak Greenfield Globulin (S) [Mass/Vol] 3.7 g/dL Normal [facility] Comment on above: Performed By: #### B MP #### [facility] [address] [place] [address] Dr. Deepak Greenfield Glucose [Mass/Vol] 105 mg/dL Normal 74-106 [facility] Comment on above: Performed By: #### B MP #### [facility] [address] [address] [address] Deepak Greenfield Potassium [Moles/Vol] 4.1 mmol/L Normal 3.5-5.1 [facility] Comment on above: Performed By: #### B MP #### [facility] [address] [address] [address] Deepak Greenfield Protein [Mass/Vol] 7.0 g/dL Normal 6.4-8.2 [facility] Comment on above: Performed By: #### B MP #### [facility] [address] [address] [address] Deepak Greenfield Sodium [Moles/Vol] 142 mmol/L Normal 136-145 [facility] Comment on above: Performed By: #### B MP #### [facility] [address] [address] [address] Deepak Greenfield Urea nitrogen [Mass/Vol] 13.0 mg/dL Normal 7.0-18.0 [facility] Comment on above: Performed By: #### B MP #### [facility] [address] [address] [address] Deepak Greenfield Urea nitrogen/Creatinine [Mass ratio] 20.0 mg/mg Normal [facility] Comment on above: Performed By: #### B MP #### [facility] [address] [address] [address] Deepak Greenfield Vital Signs Date Time Vital Sign Value Performing Clinician Facility 05-31-2024 13:05-0500 Diastolic blood pressure 64 mm[Hg] Rodriguez Rashel DO Work Phone: [facility] 05-31-2024 13:05-0500 Systolic blood pressure 108 mm[Hg] Rodriguez Rashel DO Work Phone: [facility] 03-07-2024 11:34-0500 Diastolic blood pressure 88 mm[Hg] Rodriguez Rashel DO Work Phone: [facility] 03-07-2024 11:34-0500 Heart rate 68 /min Rodriguez Rashel DO Work Phone: [facility] 03-07-2024 11:34-0500 SaO2% (BldA) [Mass fraction] 98 % Rodriguez Rashel DO Work Phone: [facility] 03-07-2024 11:34-0500 Systolic blood pressure 128 mm[Hg] Rodriguez Rashel DO Work Phone: [facility] 12-16-2022 10:18-0400 Blood Pressure Location Arline Lue [facility] 12-16-2022 10:18-0400 Body temperature 98.06 [degF] Arline Lue [facility] 12-16-2022 10:18-0400 Diastolic blood pressure 78 mm[Hg] Arline Lue [facility] 12-16-2022 10:18-0400 Heart rate 84 /min Arline Lue [facility] 12-16-2022 10:18-0400 Systolic blood pressure 128 mm[Hg] Arline Lue [facility] 12-23-2021 11:30-0400 Body height 157.48 cm Antionette Leonel Other [facility] Other 12-23-2021 11:30-0400 Body mass index (BMI) [Ratio] 25.79 kg/m2 Antionette Leonel Other [facility] Other 12-23-2021 11:30-0400 Body temperature 98.5 [degF] Antionette Leonel Other [facility] Other 12-23-2021 11:30-0400 Body weight 63.96 kg Antionette Leonel Other [facility] Other 12-23-2021 11:30-0400 Diastolic blood pressure 70 mm[Hg] Antionette Leonel Other [facility] Other 12-23-2021 11:30-0400 Respiratory rate 20 /min Antionette Leonel Other [facility] Other 12-23-2021 11:30-0400 SaO2% (BldA) [Mass fraction] 99 % Antionette Leonel Other [facility] Other 12-23-2021 11:30-0400 Systolic blood pressure 120 mm[Hg] Antionette Leonel Other [facility] Other 10-22-2021 10:29-0400 Blood Pressure Location Arline Lue [facility] 10-22-2021 10:29-0400 Diastolic blood pressure 92 mm[Hg] Arline Lue [facility] 10-22-2021 10:29-0400 Heart rate 100 /min Arline Lue [facility] 10-22-2021 10:29-0400 Respiratory rate 16 /min Arline Lue [facility] 10-22-2021 10:29-0400 Systolic blood pressure 137 mm[Hg] Arline Lue [facility] Encounters Encounter Date Encounter Type Care Provider Facility Start: 06-12-2024 ambulatory [facility] Start: 06-12-2024 End: 06-12-2024 ambulatory AP SCOTT [facility] Start: 06-02-2024 Encounter for other preprocedural examination UNKNOWN PROVIDER [facility] Start: 06-02-2024 End: 06-02-2024 ambulatory BOYD HARRY [facility] Start: 06-02-2024 End: 06-02-2024 ambulatory BOYD HARRY [facility] Start: 05-31-2024 End: 05-31-2024 Bamboo flowsheet Rodriguez Kiser DO Work Phone: [facility] Start: 05-31-2024 End: 05-31-2024 Bamboo flowsheet Rodriguez Kiser DO Work Phone: [facility] Start: 05-31-2024 End: 05-31-2024 Office outpatient visit 25 minutes Rodriguez Kiser DO Work Phone: [facility] Comment on above: Generalized convulsi ve epilepsy (CMS/HCC) (Primary Dx); 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); Spastic hemiplegia affecting dominant side (CMS/HCC); Spastic hemiplegia, nondominant side (HCC) (CMS/HCC); Severe intellectual disabilities (CMS/HCC) Start: 03-07-2024 End: 03-07-2024 ambulatory RODRIGUEZ RASHEL Not Available Start: 01-11-2024 End: 01-11-2024 ambulatory [facility] Work Phone: Start: 01-11-2024 End: 01-11-2024 Patient encounter procedure Pending Sale To [facility] Work Phone: Start: 11-07-2023 End: 11-07-2023 Letter encounter Abundio Mares DDS Work Phone: [facility] Start: 08-25-2023 End: 08-25-2023 ambulatory RODRIGUEZ KISER Not Available Start: 07-06-2023 End: 07-06-2023 ambulatory [facility] Work Phone: Start: 07-06-2023 End: 07-06-2023 Patient encounter procedure Pending [facility] To [facility] Work Phone: Start: 01-05-2023 End: 01-05-2023 ambulatory Antionette Leonel Other [facility] Other Start: 01-05-2023 Office outpatient vi sit 25 minutes Antionette Leonel [facility] Start: 12-16-2022 End: 12-17-2022 ambulatory Arline Levine Facility:[facility] Start: 12-16-2022 End: 12-16-2022 Patient encounter procedure Arline Levine [facility] Start: 08-04-2022 End: 08-04-[address] FAM ACEVEDO Facility:[facility] Start: 07-29-2022 End: 08-02-2022 Evaluation and management of inpatient DR FAM ACEVEDO Facility:[facility] Start: 07-26-2022 End: 07-27-[address] FAM ACEVEDO Facility:[facility] Start: 07-23-2022 End: 07-24-2022 ambulatory FAM ACEVEDO Facility:[facility] Start: 07-23-2022 End: 07-23-2022 Patient encounter procedure FAM ACEVEDO [facility] Start: 06-23-2022 End: 06-23-2022 ambulatory Antionette Leonel Other [facility] Other Start: 06-23-2022 Office outpatient vi sit 25 minutes Antionette Leonel [facility] Start: 06-03-2022 End: 06-04-[address] FAM ACEVEDO Facility:[facility] Start: 05-08-2022 Letter encounter Abundio Mares CHRISS Work Phone: [facility] Start: 04-22-2022 End: 04-23-[address] FAM ACEVDEO Facility:[facility] Start: 03-19-2022 End: 03-20-[address] FAM ACEVEDO Facility:[facility] Start: 03-10-2022 End: 03-11-[address] FAM ACEVEDO Facility:[facility] Start: 01-24-2022 End: 01-24-[address] DIAMOND BURGER . Facility:[facility] Start: 01-18-2022 End: 01-18-2022 ambulatory ANJELICA DOLL . Facility:[facility] Start: 01-13-[address] RODRIGUEZ Restrepo ty:[facility] Start: 01-12-2022 End: 01-13-[address] RODRIGUEZ KISER Facility:[facility] Start: 01-06-2022 End: 01-07-[address] FAM ACEVEDO Facility:[facility] Start: 12-23-2021 End: 12-23-2021 ambulatory Antionette Leonel Other [place] [facility] Other Start: 12-23-2021 Office outpatient vi sit 25 minutes Antionette Leonel [facility] Start: 12-16-2021 End: 12-17-2021 Patient encounter procedure Mora Powell [facility] Work Phone: [facility] Start: 12-10-2021 End: 12-10-2021 Patient encounter procedure Arline Levine [facility] Start: 11-20-2021 End: 11-21-[address] FAM ACEVEDO Facility:[facility] Start: 11-13-2021 End: 11-14-2021 ambulatory ARLINE Duenas Facility:[facility] Start: 10-31-2021 End: 11-01-[address] FAM ACEVEDO Facility:[facility] Start: 10-22-2021 End: 10-22-2021 Patient encounter procedure Arline Levine [facility] Start: 10-21-2021 End: 10-21-[address] FAM ACEVEDO Facility:[facility] Start: 09-29-2021 End: 09-29-[address] FAM ACEVEDO Facility:[facility] Start: 09-22-2021 End: 09-22-2021 ambulatory ABBI [...] 2) Shingles (RZV) Vaccine (1 of 2) [facility] Start: 11-20-2024 End: 11-20-2024 Patient encounter procedure 11/20/2024 11:20 AM EDT Office Visit [facility] [address] [place] [address] Marissa Gonzalez NP [address] [place] [address] [facility] Start: 06-12-2024 Subsequent hospital visit by physician 06/12/2024 Hospital Encounter [facility] [address] [place] [address] pA Scott, DDS [address] [id number] [facility] Start: 06-02-2024 End: 06-02-2024 Patient encounter procedure 06/02/2024 1:30 PM EST Office Visit [facility] [address] [place] [address] Boyd Harry MD [address] [place] [address] [facility] Start: 05-31-2024 End: 05-31-2024 Patient encounter procedure [facility] [address] Comment on above: Arrived Start: 03-07-2024 End: 03-07-2024 Patient encounter procedure 03/07/2024 11:30 AM EST Office Visit [facility] [address] [facility] [place] [address] Rodriguez Kiser DO [address] [place] [address] [address] [facility] [address] Comment on above: Arrived Start: 01-18-2024 Influenza vaccination Influenza Vacc ine (#1) [facility] Start: 12-19-2023 COVID-19 Vaccine () COVID-19 Vaccine () [facility] Start: 12-19-2023 Influenza vaccination Influenza Vacc ine (#1) [facility] Start: 12-18-2022 COVID-19 Vaccine ( season) COVID-19 Vaccine ( season) [facility] Start: 01-17-2022 Influenza vaccination Influenza Vacc ine (#1) [facility] Start: 02-01-2015 [facility]id panel [facility] Start: 05-20-2012 Annual wellness visit [...] [facility] Start: 02-01-1995 HIV screening HIV Test [facility] Start: 1980 COVID-19 Vaccine (#1) COVID-19 Vacci ne (#[facility]) [facility] Start: 1980 Medicare Annual Wellness (AWV) Medicare Annual Wellness (AWV) [facility] DENTAL RESTORATIONS DENTAL ANI RATIONS Routine scheduled Caries [facility] Immunizations Immunization Date Immunization Notes Care Provider Lucero perry 03-04-2020 pneumococcal conjuga te vaccine, 13 valent Mora Urmetz [facility] Work Phone: [facility] 01-26-2018 influenza, injectabl e, quadrivalent, preservative free Mora Urmetz [facility] Work Phone: [facility] 01-26-2018 influenza virus vaccine, unspecified formulation Mora Urmetz [facility] Work Phone: [facility] 02-10-2017 influenza virus vaccine, unspecified formulation Arline Levine [facility] 02-10-2017 influenza, injectabl e, quadrivalent, contains preservative Mora Urmetz [facility] Work Phone: [facility] 02-07-2015 influenza virus vaccine, unspecified formulation Arline Lue [facility] 02-07-2015 influenza, injectabl e, quadrivalent, preservative free Mora Urmetz [facility] Work Phone: [facility] 10-23-2014 pneumococcal polysaccharide vaccine, 23 valent Mora Urmetz [facility] Work Phone: [facility] 12-31-2010 influenza virus vaccine, unspecified formulation Arline Lue [facility] 12-31-2010 influenza, seasonal, injectable Mora Urmetz RDH Work Phone: [facility] 03-06-2009 novel [id number], preservative-free, injectable Mora Urmetz RDH Work Phone: [facility] 02-09-2008 influenza virus vaccine, whole virus Mora Urmetz RDH Work Phone: [facility] 02-09-2008 influenza, whole Arline Lue [facility] NEGATED: Highlighted row has not occurred!12-10-2021 SARS-CoV-2 mRNA (tozinameran 5y-11y) vaccine Arline Lue [facility] Payers Date Payer Category Payer Medicaid [id number] [id number] 2011 Medicare [id number] 1.13.56.2.7.3.6 [id number] 2011 Medicare FFS MEDICARE [id number] [id number] 1980 Unknown [id number] 2.16.840.1.265339.3.579.2.593 1980 Unknown [id number] 2.16.840.1.809475.3.579.2.593 1980 Unknown [id number] 2.16.840.1.743393.3.579.2.593 1980 Unknown [id number] 2.16.840.1.375833.3.579.2.593 1980 Unknown [id number] 2.16.840.1.471412.3.579.2.727 1980 Unknown [id number] 2.16.840.1.112717.3.579.2.727 1980 Unknown [id number] 2.16.840.1.485412.3.579.2.1259 1980 Unknown [id number] 2.16.840.1.513535.3.579.2.1259 1980 Unknown [id number] 2.16.840.1.410838.3.579.2.1259 1980 Unknown [id number] 2.16.840.1.667565.3.579.2.732 1980 Unknown [id number] 2.16.840.1.164034.3.579.2.732 1980 Unknown [id number] 2.16.840.1.481596.3.579.2.732 1980 Unknown [id number] 2.16.840.1.277657.3.579.2.732 1980 Unknown [id number] 2.16.840.1.284736.3.579.2.732 1980 Unknown [id number] 2.16.840.1.334727.3.579.2.732 1959 Medicaid [id number] 2.16.840.1.107491.19 1959 Medicare [id number] 2.16.840.1.718410.19 1953 Unknown [id number] 2.16.840.1.038400.3.579.2.593 1953 Unknown [id number] 2.16.840.1.889172.3.579.2.593 1953 Unknown [id number] 2.16.840.1.975447.3.579.2.593 1953 Unknown [id number] 2.16.840.1.814837.3.579.2.593 1953 Unknown [id number] 2.16.840.1.182528.3.579.2.593 1953 Unknown [id number] 2.16.840.1.743602.3.579.2.593 1953 Unknown [id number] 2.16.840.1.991446.3.579.2.593 1953 Unknown [id number] 2.16.840.1.301822.3.579.2.593 1953 Unknown [id number] 2.16.840.1.717376.3.579.2.593 1953 Unknown [id number] 2.16.840.1.310175.3.579.2.593 1953 Unknown [id number] 2.16.840.1.258051.3.579.2.593 1953 Unknown [id number] 2.16.840.1.054851.3.579.2.593 1953 Unknown [id number] 2.16.840.1.708036.3.579.2.593 1953 Unknown [id number] 2.16.840.1.228015.3.579.2.593 Self-pay Self Pay [id number] Social History Date Type Detail Facility Tobacco smoking status No Smokin g Status Entered [facility] Start: 11-02-2022 End: 05-31-2024 Sex Assigned At Male [facility] Start: 03-28-2020 Tobacco smoking stat [facility] Tobacco smoking consumption unknown [facility] Start: 1980 [facility] Tobacco smoking status No Smokin g Status Entered [facility] Start: 11-02-2022 End: 12-16-2022 Tobacco smoking status Never smoked tobacco (finding) [facility] Tobacco smoking status Never [facility] Start: 1980 Sex Assigned At Male [facility] Start: 11-02-2022 End: 05-31-2024 Alcoholic beverage intake Ex-drinker (finding) [facility] Start: 11-02-2022 End: 05-31-2024 History of Social function [facility] Start: 02-21-2012 Sex Male (finding) [facility] Functional Status Date Assessment Result Facility 12-16-2022 Functional Status N/A [facility] 12-10-2021 Functional Status N/A [facility] 10-22-2021 Functional Status N/A [facility] Clinical Notes 10-22-2021 to 06-12-2024 Rodriguez Rashel, DO - 05/31/2024 1:00 PM GAELLucianodaisha Mustafaner, DO - 03/07/2024 11:30 AM EST Note Date & Type Note Facility 06-12-2024 Note Surgical Attestation : I have reviewed the patient's History and Physical Examination. I have personally seen and evaluated the patient, repeating anthony portions. There is no significant interval change. Surgery is still indicated. Yes Consent reviewed and signed by patient/family: Yes Operative site verified and marked: site verified but not marked as not anatomically possible Beatris Thompson DDS 06/12/2024 6:59 AM [facility] 06-02-2024 Note EXAMINATION: XR CHES T PA+LAT 2 VIEWS 06/02/2024 03:22 PM CLINICAL HISTORY: pre op evaluation for dental restorations ASSOCIATED DIAGNOSIS: Pre-op evaluation ORDERING PROVIDER: BOYD HARRY TECH[employer]OLOGISTS NOTE: COMPARISON: None FINDINGS: Cardiomediastinal silhouette: Limited evaluation due to decreased lung volumes. Hypoglossal nerve stimulator overlying the left hemithorax with leads terminating over the left supraclavicular region. Lungs/Pleura: Decreased lung volumes resulting in bronchovascular crowding. Mild perihilar, peribronchial thickening. No sizable pleural effusion or pneumothorax. Musculoskeletal: Unremarkable. Mild gaseous distention of the bowel loops within the visualized portion of the upper abdomen. IMPRESSION: Decreased lung volumes resulting in bronchovascular crowding. There is also mild perihilar/peribronchial thickening. This is probably related to atelectasis/bronchitis. MACRO: None I have personally reviewed the images and agree with the resident's interpretation. [facility] 06-02-2024 Note Do not eat or drink anything after midnight the night prior to your procedure. Do not take your lasix the morning of your procedure. You may resume it as scheduled the following day. Do not take aspirin for 7 days prior to your procedure; this medication increases your risk of bleeding during the procedure. Do not take NSAIDs (Ibuprofen, Motrin, Aleve etc.) for at least the 3 days prior to your procedure; these medications increase your risk of bleeding during the procedure. Contact the Pre-Surgical Evaluation department at [phone] or your surgeon's office with any additional questions [facility] 06-02-2024 Note Pre-Admission Testin g Consultation Parish Lopez, [id number] 44 year old Male 06/02/2024 Consult placed to [facility] by Dr. Zamora due to significant PMH of Seizures, mental disability, hypothyroid undergoing dental restorations 06/12 [facility] Triage Risk Score Total Score: 2 2 Patient is on more than 2 antihypertension medications. Parish Lopez is scheduled for (Bilateral) DENTAL RESTORATIONS on 06/12/2024. Pre-Op diagnosis of: Pre-Op Diagnosis Codes: * Caries [K02.9] HISTORY OF PRESENT ILLNESS: Patient is here for pre-admission optimization and education prior to surgery. RECENT ILLNESS: Serious illness or hospitalization within the last six months. No STOP BANG: STOP-BANG Row Name 06/02/24 1335 History of sleep apnea? No Snoring No Tired/Fatigued No Observed Apnea No Pressure: Hypertension No BMI greater than 35 0 Age greater than 50 0 Neck circ greater than 40cm (15.75 ) No Gender male? 1 Score 1 ALLERGIES: Allergies Allergen Reactions Promethazine Unknown reaction Amoxicillin-Pot Clavulanate Unknown reaction Phenytoin Sodium Extended Unknown reaction Patient Active Problem List: Mental disability [F79] Caries [K02.9] SOCIAL HISTORY: has no history on file for drug use. MEDICAL HISTORY: No past medical history on file. SURGICAL HISTORY: Past Surgical History: Procedure Laterality Date DENTAL RESTORATIONS Bilateral 02/29/2020 Procedure: DENtal, xrays, examinations, 1 extraction; Surgeon: Ap Scott DDS; Location: [facility] Surgery [place]; Service: Dental Past Medical History and Review of Systems Pulmonary (+) COPD (-) sleep apnea Dental ROS (+) teeth problems missing Endo (+) hyperthyroidism Neuro/Psych (+) seizures Comment: intellectual disability Vagus nerve stimulator Cardiovascular (+) hyperlipidemia (-) hypertension, past OK, CAD, angina GI/Hepatic/Renal (+) GERD (-) renal disease Comment: BPH Heme/Other (-) bleeding disorder PREVIOUS ANESTHETIC COMPLICATIONS: no history of difficult intubation , adverse effects of anesthetic agents, or family history of anesthesia-related problems, nor malignant hyperthermia Anesthesia Complications No anesthesia history noted CURRENT MEDICATION LIST: Current Outpatient Medications Medication Sig Dispense Refill clindamycin (CLEOCIN) 300 MG capsule TAKE 1 CAPSULE BY MOUTH 3 TIMES DAILY FOR 7 DAYS. 21 Capsule 0 levothyroxine (SYNTHROID) 100 MCG tablet levothyroxine (SYNTHROID) 50 MCG tablet Linzess 145 MCG CAPS capsule omeprazole (PRILOSEC) 40 MG capsule oxcarbazepine (TRILEPTAL) 300 MG tablet oxcarbazepine (TRILEPTAL) 600 MG tablet divalproex (DEPAKOTE) 250 MG enteric coated tablet felbamate (FELBATOL) 400 MG tablet fluticasone (FLONASE) 50 mcg/act nasal inhaler furosemide (LASIX) 20 MG tablet lactulose 10 g/15 mL oral solution levetiracetam (KEPPRA) 750 MG tablet alendronate (FOSAMAX) 70 MG tablet atorvastatin (LIPITOR) 10 MG tablet cloBAZam (ONFI) 10 MG tablet divalproex (DEPAKOTE SPRINKLE) 125 MG CSDR capsule No current facility-administered medications for this visit. HEIGHT: Data Unavailable WEIGHT: Weight was 63.0 kg on 06/02/2024 BMI: Data Unavailable VITAL SIGNS: There were no vitals taken for this visit. AIRWAY EXAM: Mallampati score: unable to assess TMD: Adequate Neck Extension/ Flexion: Limited Mouth Opening: Adequate Dentition: Missing teeth Micrognathia/Overbite: unable to assess FUNCTIONAL CAPACITY: <4 mets and Uses a wheel chair PHYSICAL EXAM: Eyes: Normal ENT: Deferred Pulmonary: Chest clear to auscultation bilaterally Cardiovascular: RRR with S1S2 and No murmurs, gallops, or rubs Abdomen: Deferred Extremities: contractures Neurologic: intellectual disability Psychiatric: alert and oriented to person, place and time Assessment and Plan: 1) Pre-Admission Evaluation -- BMP, CBC, EKG today 2) Pre-Op Diagnosis Codes: * Caries [K02.9] 3) HLD - continue lipitor 4) Lower extremity edema -- hold lasix morning of surgery 5) Hx of seizures -- continue taking antiseizure medications Patient okay to continue the remainder of his medications LABS, TESTS, CONSULTS ORDERED: No orders or meds were signed during this encounter LABORATORY DATA: CBC No lab values to display. BMP (last 1 year, up to 8 values) No lab values to display. TESTS REVIEWED: I personally reviewed and interpreting and findings were: Seizures, mental disability, hypothyroid undergoing dental restorations 06/12 Patient is medically optimized for surgery. This note will be forwarded to the referring provider. Patient should follow up with referring provider. Patient has been directed to discuss specific recovery questions with his/her surgeon/proceduralist. Visit activities: - preparing to see the patient (e.g., review of tests) - obtaining and/or reviewing separately obtained history - performing a medically appropriate examinati (more content not included)... 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 documented in this encounter [facility] 03-07-2024 History of Present illness Narrative No chief complaint on file. 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 documented in this encounter [facility] 01-05-2023 Evaluation note Encounter Date Diagnosis Assessment Notes Dec, COPD (chronic obstructive pulmonary disease) (ICD-10 - J44.9) [facility] 08-30-2023 Hospital Discharge instructions Patient Education [...] provider. Document Revised: 08/14/2021 Document Reviewed: 08/14/2021 [employer]sit Patient Education 2022 C[employer] Connections. Follow Up Care 12/10/2021 11:51:23 With:Abner BYRNE, JUNIOR Hawk, URO Address: When: Unknown Comments:[facility] Evaluation note* Encounter Date Diagnosis Assessment Notes Treatment Notes Treatment Clinical Notes Jun, COPD (chronic obstructive pulmonary disease) (ICD-10 - J44.9) Continue with respiratory regemin, including VEST therapy, as you currently are doing. Call office with respiratory questions or concerns. [facility] 09-06-2022 Evaluation note* Encounter Date Diagnosis Assessment Notes Treatment Notes Treatment Clinical Notes Dec, COPD (chronic obstructive pulmonary disease) (ICD-10 - J44.9) Continue with VEST therapy twice a day. Ok to increase to TID if needed. [facility] 08-30-2022 Instructions* Patient Instructions* Mora Powell RDH - 12/16/2021 11:57 AM EDT Pt presented today for OR evaluation. Limited eval was completed. Pt's case is not urgent updated contact information and placed Pt on OR list. Step by step process for OR flyer was given to caregiver. Please wait for phone call from OR coordinator. documented in this [id number] History of Present illness Narrative* Mora Powell RDH - 12/16/2021 11:42 AM EDT ----- Thursday, December 16, 2021 at 12:03:50 PM ----- ----- Provider: [id number] Powell Hygienist -- Clinic: [place] ----- [facility], Pt is ready for tx. Pt presented for dental evaluation for future OR. Caregiver in the room. Patient is non-verbal. Severe intellectual disability, seizure disorder Caregiver stated patient is not pain and no complaining. Radiograph taken today: no possible due to patient behavior Case requested for OR. Guardian mother Katia Lopez. [phone]. [facility] [phone] [phone] ( [facility]) AVS printed and handed flyer for step by step instruction of OR process to Caregiver exam By: Ellitot Ham RDH [place]. OR ----- Signed on Thursday, December 16, 2021 at 12:18:18 PM ----- ----- Provider: Julia Adams DDS -- Clinic: [place] ----- documented in this [id number] Hospital Discharge instructions Patient Education 12/10/2021 11:47:35 [...] nerve stimulation). For women, using a medical office representative to prevent urine leaks. This is [...] right after experiencing incontinence. General instructions Take eotc-tlo-qneeair and prescription medicines only as told by [...] 05/13/2005 Document Revised: 04/15/2018 Document Reviewed: 07/15/2017 u.sit Patient Education 2020 Catheter Connections. Follow Up Care 10/22/2021 11:38:20 With:Abner BYRNE, JUNIOR Hawk, URO Address: When:1 year Comments:W/ renal US [facility] Nataliya 07-06-2022 Hospital Discharge instructions Patient Education 10/22/2021 [...] nerve stimulation). For women, using a medical office representative to prevent urine leaks. This is [...] right after experiencing incontinence. General instructions Take fgma-avu-wpiycdg and prescription medicines only as told by [...] 05/13/2005 Document Revised: 04/15/2018 Document Reviewed: 07/15/2017 u.sit Patient Education 2020 [employer] Connections. 10/22/2021 11:42:30 Renal Mass Renal Mass A [...] provider gives to you. In general: Take tksx-xnv-khomrnf and prescription medicines only as told by [...] 10/31/2014 Document Revised: 05/12/2018 Document Reviewed: 05/12/2018 u.sit Patient Education Pictrition App. Follow Up Care 09/22/2021 14:10:46 With:Arline Levine MD, UR, URO Address: When:1 month [facility] evaluation + Plan note Future Appointments Appointment Date:11/19/2021 10:00:00 AM Scheduled Provider:Arline Levine MD Location:[facility] Appointment Type:URO Office Visit [facility] evaluation + Plan note Future Appointments Appointment Date:12/16/2022 10:15:00 AM Scheduled Provider:Arline Levine MD Location:[facility] Appointment Type:URO Office Visit [facility] evaluation note* Diagnosis Onset Date Resolution Status COPD (chronic obstructive pulmonary disease) acute Severe intellectual disability [facility] Work Phone: Evaluation note* Diagnosis Generalized convulsive [...] History COPD Surgical History VNS REPLACED 2021 [facility] Other Hospital course Narrative No data available for this section [facility] Hospital Discharge instructions No data available for this section [facility] No data available for this section [facility] Summary Purpose Family History No Family History Records FoundNo Family History Records FoundNo Family History Records FoundNo Family History Records Found Advance Directives No Advanced Directives Records Found Advance Directive Response Recorded Date/ Time Advance Directives No March 4:51pm Advance Directive Response Recorded Date/ Time Advance Directives Yes July 05, 024 10:35am Chief Complaint and Reason for Visit Chief Complaint 6 Month f/u- COPD Reason for Visit COPD (chronic obstru ctive pulmonary disease) Severe intellectual disability Chief Complaint H mo f/u COPD Reason for Visit COPD (chronic obstru ctive pulmonary disease) Severe intellectual disability Additional Source Comments Care Team (unrecognized sect ion and content) Professor Of Spanish Relationship Specialty Start Date End Date Abundio Mares DDS [address] [place] [id number] Resident Dentistry 02/23/20 Professor Of Spanish Relationship Specialty Start Date End Date Abundio Mares [address] [address] Resident Dentistry 02/23/20 Team Status: Active Member Role Status Dates Fam Acevedo , Primary Care Provider Active Team Status: Inactive Member Role Status Dates Fam Acevedo , Primary Care Provider Active Start: July 06, 2023 End: July 06, 2023 JEOVANY Renee Attending Provider Active Start: July 06, 2023 End: July 06, 2023 Professor Of Spanish Relationship Specialty Start Date End Date Abundio Mares [address] [address] Resident Dentistry 02/23/20 Team Status: Inactive Member Role Status Dates Fam Acevedo DO Primary Care Provider Active Start: January 11, 2024 End: January 11, 2024 JEOVANY Renee Attending Provider Active Start: January 11, 2024 End: January 11, 2024 [facility] Active Start: 2023 End: January 11, 2024 Professor Of Spanish Relationship Specialty Start Date End Date Unallocated, Rossi Fermin MD [facility] [place] [address] PCP - General 09/23/22 Fam Acevedo MD [address] [place], [place] [address] [address] [place] [address] Referring Physician Orthopaedic Surgery 09/23/22 Professor Of Spanish Relationship Specialty Start Date End Date Unallocated, [place] [address] PCP - General 09/23/22 Fam Acevedo MD [facility] [address] [place] [address] Referring Physician Orthopaedic Surgery 09/23/22 Professor Of Spanish Relationship Specialty Start Date End Date Abundio Mares [facility] [address] [place] [address] Resident Dentistry 02/23/20 Professor Of Spanish Relationship Specialty Start Date End Date Abundio Mares [facility] [address] [place] [address] Resident Dentistry 02/23/20 Professor Of Spanish Relationship Specialty Start Date End Date Unallocated, Rossi Fermin MD [address] [place] [address] PCP - General 09/23/22 Fam Acevedo MD [facility] [address] [facility] [address] [place] [address] Referring Physician Orthopaedic Surgery 09/23/22 REASON FOR VISIT (unrecogniz ed section and content) Reason Comments Seizures (unrecognized sect ion and content) No Status Records FoundNo Status Records FoundNo Status Records FoundNo Status Records Found INFORMATION SOURCE (unrecogn ized section and content) DATE CREATED AUTHOR 08/05/2022 [facility] DATE CREATED AUTHOR AUTHOR'S ORGANIZ ATION 01/26/2023 [facility] DATE CREATED AUTHOR AUTHOR'S ORGANIZ ATION 06/02/2024 [facility] DATE CREATED AUTHOR AUTHOR'S ORGANIZ ATION 06/19/2024 [facility] Goals (unrecognized section and content) Goals [...] BE BASED ON THE PRIMARY CLINICAL RECORDS. [facility]. provides no warranty or guarantee of the accuracy or completeness of information in this document.
[2024-07-06 07:33] LABS: Basophils Percent Auto 0.3 % (0.2-2.0); Eosinophils Absolute Auto 0.1 10^3/uL (0.0-0.7); Eosinophils Percent Auto 1.2 % (0.9-7.0); Hematocrit 39.9 % (42.0-54.0); Immature Granulocytes Abs Auto 0.02 10^3/uL (0.00-0.03); Immature Granulocytes Pct Auto 0.2 % (0.0-0.5); Lymphocytes Absolute Auto 2.8 10^3/uL (1.2-3.8); Lymphocytes Percent Auto 27.5 % (20.5-60.0); Mean Corpuscular HGB Conc 32.6 g/dL (29.9-35.2); Mean Corpuscular Hemoglobin 31.4 pg (25.9-34.0); Mean Corpuscular Volume 96.4 fL (80.0-94.0); Mean Platelet Volume 10.8 fL (9.5-13.5); Monocytes Absolute Auto 0.8 10^3/uL (0.3-0.8); Monocytes Percent Auto 7.5 % (1.7-12.0); Neutrophils Absolute Auto 6.5 10^3/uL (1.4-6.5); Neutrophils Percent Auto 63.3 % (43.0-75.0); Platelet Count 321 10^3/uL (150-450); Red Blood Count 4.14 10^6/uL (4.70-6.10); Red Cell Distribution Width 13.1 % (11.0-15.0); White Blood Count 10.2 10^3/uL (4.0-11.0)
[2024-07-06 08:16] LABS: Alanine Aminotransferase 63 U/L (16-63); Albumin Level 3.8 g/dL (3.4-5.0); Alkaline Phosphatase 61 U/L (46-116); Anion Gap 11.3; Aspartate Amino Transferase 45 U/L (15-37); BUN Creatinine Ratio 19.4; Bilirubin Total 0.5 mg/dL (0.2-1.0); Calcium 9.7 mg/dL (8.5-10.1); Carbon Dioxide 31.1 mmol/L (21.0-32.0); Chloride 106 mmol/L (98-107); Estimated GFR (African America >60 (>=60 mL/min/1.73m^2); Estimated GFR (Non-African Ame >60 (>=60 mL/min/1.73m^2); Globulin 3.9 g/dL; Glucose 103 mg/dL (74-106); Potassium 4.4 mmol/L (3.5-5.1); Sodium 144 mmol/L (136-145); Total Protein 7.7 g/dL (6.4-8.2)
== END 2024-07-06 06:54 | disposition home or self-care (01) ==
LOC: LAB 06:55
PROVIDERS: PCP Family Medicine; Visit Provider Family Medicine
DX: R63.8 Other symptoms and signs concerning food and fluid intake (principal); K59.00 Constipation, unspecified; E78.5 Hyperlipidemia, unspecified; K21.9 Gastro-esophageal reflux disease without esophagitis
CPT/HCPCS: 36415; 80053; 85025

== ENCOUNTER 2024-07-31 09:28 | Outpatient (OUT) | payer MEDICARE, MEDICAID, SELFPAY ==
[2024-07-31 09:48] LABS: Basophils Percent Auto 0.5 % (0.2-2.0); Eosinophils Absolute Auto 0.1 10^3/uL (0.0-0.7); Eosinophils Percent Auto 1.4 % (0.9-7.0); Hematocrit 35.2 % (42.0-54.0); Hemoglobin 11.8 g/dL (14.0-18.0); Immature Granulocytes Abs Auto 0.02 10^3/uL (0.00-0.03); Immature Granulocytes Pct Auto 0.3 % (0.0-0.5); Lymphocytes Absolute Auto 2.5 10^3/uL (1.2-3.8); Lymphocytes Percent Auto 39.1 % (20.5-60.0); Mean Corpuscular HGB Conc 33.5 g/dL (29.9-35.2); Mean Corpuscular Hemoglobin 32.1 pg (25.9-34.0); Mean Corpuscular Volume 95.7 fL (80.0-94.0); Mean Platelet Volume 9.6 fL (9.5-13.5); Monocytes Absolute Auto 0.5 10^3/uL (0.3-0.8); Monocytes Percent Auto 8.2 % (1.7-12.0); Neutrophils Absolute Auto 3.2 10^3/uL (1.4-6.5); Neutrophils Percent Auto 50.5 % (43.0-75.0); Platelet Count 314 10^3/uL (150-450); Red Blood Count 3.68 10^6/uL (4.70-6.10); Red Cell Distribution Width 13.2 % (11.0-15.0); White Blood Count 6.3 10^3/uL (4.0-11.0)
[2024-07-31 10:15] LABS: Alanine Aminotransferase 55 U/L (16-63); Albumin Globulin Ratio 1.1; Albumin Level 3.6 g/dL (3.4-5.0); Alkaline Phosphatase 40 U/L (46-116); Anion Gap 9.4; Aspartate Amino Transferase 42 U/L (15-37); BUN Creatinine Ratio 16.7; Bilirubin Total 0.4 mg/dL (0.2-1.0); Calcium 8.5 mg/dL (8.5-10.1); Carbon Dioxide 31.2 mmol/L (21.0-32.0); Chloride 100 mmol/L (98-107); Estimated GFR (African America >60 (>=60 mL/min/1.73m^2); Estimated GFR (Non-African Ame >60 (>=60 mL/min/1.73m^2); Free T3 2.19 pg/mL (2.18-3.98); Globulin 3.2 g/dL; Glucose 96 mg/dL (74-106); Potassium 3.6 mmol/L (3.5-5.1); Sodium 137 mmol/L (136-145); Thyroid Stimulating Hormone 0.165 uIU/mL (0.358-3.740); Total Protein 6.8 g/dL (6.4-8.2)
[2024-07-31 10:20] LABS: Ammonia 50 umol/L (11-32)
== END 2024-07-31 09:29 | disposition home or self-care (01) ==
LOC: LAB 09:28
PROVIDERS: PCP Family Medicine; Visit Provider Family Medicine
DX: Z51.81 Encounter for therapeutic drug level monitoring (principal); K76.82 Hepatic encephalopathy; M81.0 Age-related osteoporosis without current pathological fracture; K59.00 Constipation, unspecified; K21.9 Gastro-esophageal reflux disease without esophagitis; E03.9 Hypothyroidism, unspecified; K11.7 Disturbances of salivary secretion
CPT/HCPCS: 36415; 80053; 82140; 82306; 84439; 84443; 84481; 85025

== ENCOUNTER 2024-08-29 06:54 | Outpatient (OUT) | payer MEDICARE, MEDICAID, SELFPAY ==
--- OUTSIDE RECORDS SUMMARY | 2024-08-29 06:58 | XMS_ITS | CCD ---
Author Organization [facility] Care Team Providers Care Field Case Manager Name Role Phone FAM VENTURA Primary Care Physician [phone] Abundio Mares DDS Unavailable Antionette Castaneda Unavailable LORENZO, DR FAM Duran Attending Unavailable VENTURA, DR FAM Duran Admitting Unavailable VENTURA, DR FAM Duran Primary Care Unavailable VENTURA, DR FAM Duran Consulting Unavailable LUE ., ARLINE Schwarz Attending Unavailable LUE ., ARLINE Schwarz Admitting Unavailable VENTURA, DR FAM Duran Consulting [...] CHELE Duran Consulting Unavailable ALICE .IDRIS Consulting Unavailssuan BURGER ., DR FIELDS Consulting Unavailable TROTTIMALKA Consulting Unavailable RILEY, SOPHIA Consulting Unavailable JBARA, [...] Unavailable VENTURA, DR FAM Duran Attending Unavailable KlippAniceto mattson Consulting Unavailable RASHEL, DR FRIAS Attending Unavailable [...] .IDRIS Consulting UnavailGUANAKITO Redd Consulting Unavailable SHARMILA .ANJELICA Consulting Unavailable SHARMILA .ANJELICA Attending Unavailable VENTURA, DR FAM Duran Primary Care Unavailable SHARMILA .ANJELICA Admitting Unavailable HAY ., DR FIELDS Consulting Unavailable HAY ., DR FIELDS Attending Unavailable VENTURA, DR FAM Duran Primary Care Unavailable HAY ., DR FIELDS Admitting Unavailable KlippAniceto mattson Consulting Unavailable Arline Levine Attending Unavailable VENTURA, FAM Referring Unavailable VENTURA, FAM Attending Unavailable VENTURA, FAM Admitting Unavailable Abundio Mares DDS Unavailable Fam Ventura MD Unavailable [phone] Unallocated , Noms Provider Primary Care Provi scotty RODRIGUEZ VANG Attending Unavailable RASHEL, RODRIGUEZ Attending Unavailable RODRIGUEZ VANG Attending Unavailable PROVIDER, UNKNOWN Admitting Unavailable AL-MASHNI, AP Attending Unavailable BOYD JOHNSON Referring Unavailable PROVIDER, UNKNOWN Admitting Unavailable PROVIDER, UNKNOWN Attending Unavailable AL-MASHNI, AP Admitting Unavailable AL-MASHNI, AP Attending Unavailable BOYD JOHNSON Attending Unavailable PROVIDER, UNKNOWN Admitting Unavailable PROVIDER, UNKNOWN Attending Unavailable PROVIDER, UNKNOWN Admitting Unavailable PROVIDER, UNKNOWN Attending Unavailable AL-MASHNI, AP Referring Unavailable PROVIDER, UNKNOWN Admitting Unavailable Allergies Allergy Classification Reported Allergen(s) Allergy Type Date of Onset Reaction(s) Facility (8 sources) Amoxicillin / Clavulanate; Translations: [amoxicillin-clav ulanate] Drug Allergy Unknown [facility] (17 sources) Phenytoin; Translations: [phenytoin] Drug Allergy 3 Unknown [facility] (20 sources) Promethazine; Translations: [promethazine] Drug Allergy 7 Unknown [facility] (12 sources) Phenytoin; Translations: [PHENYTOIN SODIUM EXTENDED] Drug Allergy 7 Unknown [facility] (12 sources) Amoxicillin-Pot Clavulanate; Translations: [AMOXICILLIN-POT CLAVULANATE] Propensity to adverse reactions to drug 7 Unknown [facility] (2 sources) 4-Aminobenzoic Acid; Translations: [PERTUSSIS VACCINES] Drug Allergy 5 [facility] (1 source) Amoxicillin / Clavulanate Drug Allergy 4 [facility] (1 source) Levamisole Drug Allergy 4 [facility] (1 source) metroNIDAZOLE Drug Allergy [facility] (1 source) Phenytoin Drug Allergy 4 [facility] (1 source) remdesivir (investigational use) Drug allergy (disorder) [facility] (9 sources) Amoxicillin Drug Allergy 3 Unknown [facility] (7 sources) Clavulanate Drug Allergy 3 Unknown [facility] Medications Current Medications Medication Drug Class(es) Dates Sig (Normalized) Sig (Original) Acetaminophen (10 sources) Start: 12-16-2022 acetaminophen Refills(s) 0 Start Date: 12/16/22 Status: Ordered Start: 03-28-2020 Acetaminophen 650 mg Suppository Active 650 MG RI EVERY 4-6 HOURS as needed for Elevated Temp March 28, 2020 1:00am Start: 03-28-2020 Acetaminophen Active 650 MG RI EVERY 4-6 HOURS March 28, 2020 1:00am Start: 03-28-2020 End: 07-06-2023 take 2 tablets by mouth every four to six hours as needed Acetaminophen 325 mg Tablet Discontinued 650 MG PO EVERY 4-6 HOURS as needed for Elevated Temp or Generak Disco March 28, 2020 1:00am July 06, 2023 9:30am Start: 03-28-2020 End: 07-06-2023 take 650 mg by mouth every four to six hours Acetaminophen Discontinued 650 MG PO EVERY 4-6 HOURS March 28, 2020 1:00am July 06, 2023 9:30am take 1 tablet by rebecca th every six hours as needed Acetaminophen 325 MG 1 tablet as needed Orally every 6 hrs Active albuterol 0.83 mg/ml inhalation solution (13 sources) beta2-Adrenergic Agonist Start: 06-28-2023 take 2.5 mg by inhalation four times daily as needed for chronic obstructive pulmonary disease Albuterol Sulfate 2.5 mg /3 mL (0.083 %) solution for nebulization Active 2.5 MG INHALATION Four times daily as needed for COPD June 28, 2023 1:17pm Start: 03-28-2020 End: 06-28-2023 take 2.5 mg by inhalation every six hours as needed for chronic obstructive pulmonary disease Albuterol Sulfate 2.5 mg /3 mL (0.083 %) Solution For Nebulization Discontinued 2.5 MG INHALATION Q6H as needed for COPD March 28, 2020 1:00am June 28, 2023 1:21pm Start: 03-28-2020 End: 06-28-2023 take 2.5 mg by inhalation every two hours as needed Albuterol Sulfate 2.5 mg /3 mL (0.083 %) Solution For Nebulization Discontinued 2.5 MG INHALATION Q2H as needed for Shortness Of Breath March 28, 2020 1:00am June 28, 2023 [...] / ipratropium bromide 0.167 mg/ml inhalation solution (6 sources) Anticholinergic, beta2-Adrenergic Agonist Start: 03-28-2020 take 1 mL by inhalation three times daily Ipratropium-Albuterol 0.5 mg-3 mg(2.5 mg base)/3 mL solution for nebulization Active 3 ML INHALATION Three times daily [...] oral tablet (20 sources) Bisphosphonate Start: 07-04-2015 take 1 tablet by mouth every week Alendronate 70 mg tablet Active 70 MG PO every week March [...] Start Date: 10/22/21 Status: Ordered Ascorbic Acid (10 sources) Vitamin C Start: 10-22-2021 Vitamin C [...] (20 sources) HMG-CoA Reductase Inhibitor Start: 07-04-2015 take 1 tablet by mouth once daily at bedtime Atorvastatin 10 mg tablet Active 10 MG PO Daily at bedtime March 28, 2020 1:00am azelastine hydrochloride 0.137 mg/actuat metered dose nasal spray (8 sources) Histamine-1 Receptor Antagonist Start: 06-28-2023 take 1 puff(s) nasal route twice daily Azelastine 137 mcg (0.1 %) aerosol,spray Active 1 PUFF INTRANASAL Twice daily June [...] Status: Ordered benzonatate 100 mg oral capsule (6 sources) Non-narcotic Antitussive Start: 03-28-2020 take 1 capsule by mouth every eight hours as needed for cough Benzonatate 100 mg Capsule Active 100 MG PO Q8H as needed for Cough March 28, 2020 1:00am take 1 capsule by mo ut every eight hours Benzonatate 100 MG 1 capsule as needed Orally Three times a day Active budesonide 0.25 mg/ml inhalation suspension (13 sources) Corticosteroid Start: 06-28-2023 take 0.5 mg [...] mg / cholecalciferol 200 unt oral tablet (10 sources) Vitamin D Start: 03-28-2020 take 1 [...] oral tablet (20 sources) Benzodiazepine Start: 07-04-2015 take 1 tablet by mouth twice daily Clobazam 10 mg tablet Active 10 MG PO Twice daily March 28, 2020 1:00am clonazePAM 0.25 mg disintegrating oral tablet (6 sources) Benzodiazepine Start: 03-28-2020 Clonazepam 0.25 mg Tablet,Disintegr ating Active 0.25 MG TRANSLINGU Twice daily as needed for Cluster of 5 seizures March 28, 2020 1:00am Start: 03-28-2020 Clonazepam Act jerrica 0.25 MG TRANSLINGU Twice daily March 28, 2020 1:00am Cough and Chest Congestion (4 sources) Start: 10-22-2021 Cough and Ches t Congestion Refill(s) 0 Start Date: 10/22/21 Status: Ordered diazePAM 10 mg oral tablet (13 sources) Benzodiazepine Start: 10-22-2021 take 1 mg rectal route once Diastat AcuDial adult mg, Rectal, Once, Refills(s) 0 Start Date: 10/22/21 Status: Ordered Start: 03-28-2020 End: 07-06-2023 take 1 tablet rectal route every two hours as needed Diazepam 10 mg tablet Active 5 MG PO Q2H as needed for 3 or more seizures July 06, 2023 10:24am 10MG RECTAL GEL, PATIENT TAKES IT RI - wont let me save without route. Start: 03-28-2020 End: 07-06-2023 apply 10 mg rectal route every two hours Diazepam Active 5 MG PO Q2H July 06, 2023 10:24am 10MG RECTAL GEL, PATIENT TAKES IT RI - wont let me save without route. Start: 07-05-2015 diazepam 10 mg , Rectal, PRN Seizure, Refills(s) 0 Start Date: 07/05/15 Status: Ordered docusate sodium 100 mg oral capsule (16 sources) Start: 10-22-2021 take 1 capsule by mo [facility] twice daily as needed for constipation docusate sodium 100 mg Cap 100 mg = 1 cap(s), Oral, BID, PRN for constipation, # 20 cap(s), Refills(s) 0 Start Date: 10/22/21 Status: Ordered Start: 03-28-2020 take 2 capsules by outh once daily in the morning Docusate Sodium 100 mg Capsule Active 200 MG PO Every morning March 28, 2020 1:00am Start: 03-28-2020 take 200 mg by mouth once daily in the morning Docusate Sodium Active 200 MG PO Every morning March 28, 2020 1:00am take 1 capsule by mo [facility] every twenty-four hours Docusate Sodium [...] tablet (20 sources) Anti-epileptic Agent Start: 02-23-2020 take 1 tablet by mouth three times daily Felbamate 400 mg tablet Active 400 MG PO Three times daily [...] Status: Ordered Start: 03-28-2020 Fluticasone Pr opionate 50 mcg/actuation spray,suspension Active 2 SPRAY INTRANASAL Daily March 28, [...] tablet (20 sources) Loop Diuretic Start: 02-23-2020 take 1 tablet by mouth once daily Furosemide 20 mg tablet Active 20 MG PO Daily March 28, 2020 1:00am glycopyrrolate 1 mg oral tablet (16 sources) Start: 10-22-2021 take 1 tablet by mouth three times daily glycopyrrolate 1 mg oral tablet mg tab(s), Oral, TID, Refills(s) 0 Start Date: 10/22/21 Status: Ordered Start: 03-28-2020 take 1 tablet by rebecca th twice daily Glycopyrrolate 1 mg tablet Active 1 MG PO Twice daily March 28, 2020 1:00am guaiFENesin 400 mg oral tabl et (4 sources) Start: 12-16-2022 guaifenesin 40 0 mg [...] Status: Ordered ketoconazole 20 mg/ml topical cream (7 sources) Azole Antifungal Start: 03-28-2020 Ketoconazole 2 % Cream Active 1 APPLIC TOPICAL Twice daily as needed for Groin Rash March 28, 2020 1:00am Start: 07-05-2015 Ketoconazole A ctive 1 APPLIC TOPICAL Twice daily March 28, 2020 1:00am lactulose 667 mg/ml oral solution (20 sources) Osmotic Laxative Start: 10-22-2021 Enulose 10 g/ 15 mL oral and rectal liquid gm mL, Refills(s) 0 Start Date: 10/22/21 Status: Ordered Start: 03-28-2020 take 1 mL by mouth f our times daily Lactulose 10 gram/15 mL solution Active 60 ML PO Four times daily [...] oral tablet (20 sources) Start: 03-28-2020 take 2 tablets by mouth twice daily Levetiracetam 750 mg tablet Active 1500 MG PO Twice daily March 28, 2020 1:00am Start: 03-28-2020 take 1500 mg by mout h twice daily Levetiracetam Active 1500 MG PO [...] oral tablet (20 sources) l-Thyroxine Start: 06-28-2023 Levothyroxine 100 mcg tablet Active 150 MCG PO Daily June 28, 2023 1:10pm Start: 06-28-2023 take 150 ug by mouth once toby y Levothyroxine Active 150 MCG PO Daily June 28, 2023 1:10pm Start: 11-10-2022 levothyroxine (Synthroid, Levoxyl) 150 MCG tablet 11/10/2022 Active Start: 02-23-2020 End: 06-28-2023 take 1 tablet by mouth once daily at bedtime Levothyroxine 100 mcg tablet Discontinued 100 MCG PO Daily at bedtime March 28, 2020 1:00am June 28, 2023 1:21pm Start: 02-23-2020 End: 06-28-2023 take 1 tablet by mouth once daily at bedtime Levothyroxine 50 mcg tablet Discontinued 50 MCG PO Daily at bedtime [...] Start: 02-23-2020 take 1 capsule by mo [facility] once daily in the morning Linaclotide (Linzess) [...] sulfate 240 mg extended release oral tablet (9 sources) alpha-Adrenerg ic Agonist Start: 03-28-2020 End: 06-28-2023 take 1 tablet by mouth once daily as needed, then take 1 tablet by mouth every twenty-four hours as needed Loratadine-Pseudo ephedrine (Allergy Relief D-24hr) 10-240 mg tablet extended release 24 hr Active 1 TAB PO Daily as needed June 28, 2023 12:00am magnesium oxide 400 mg oral tablet (13 sources) Start: 03-28-2020 take 1 tablet by mouth once daily Magnesium Oxide 400 mg magnesium Tablet Active 400 MG PO Daily March 28, 2020 1:00am melatonin 5 mg oral tablet (7 sources) Start: 03-28-2020 take 1 tablet by mouth once daily at bedtime Melatonin 5 mg Tablet Active 5 MG PO Daily at bedtime March 28, 2020 1:00am metoprolol tartrate 50 mg oral tablet (6 sources) beta-Adrenergi c Rachelle Start: 06-28-2023 take 1 tablet by mouth twice daily Metoprolol Tartrate 50 mg tablet Active 1 TAB PO Twice daily June [...] Status: Ordered montelukast 10 mg oral tablet (10 sources) Leukotriene Receptor Antagonist Start: 03-28-2020 take 1 tablet by mouth once daily at bedtime Montelukast 10 mg tablet Active 10 MG PO Daily at bedtime March 28, 2020 1:00am Multivitamin preparation (5 sources) Start: 03-28-2020 take 1 tablet by mouth once daily Multivitamin Active 1 TAB PO Daily March 28, 2020 1:00am Multivitamin Ora lly Active Multivitamin Tablet (1 source) Start: 03-28-2020 take 1 tablet by mouth once daily Multivitamin Tablet Active 1 TAB PO Daily March 28, 2020 1:00am multivitamin with iron (4 sources) Start: 10-22-2021 multivitamin with iron mL, Refill(s) 0 Start Date: 10/22/21 Status: Ordered mupirocin 0.02 mg/mg topical ointment (3 sources) RNA Synthetase Inhibitor Antibacterial Start: 10-22-2021 mupirocin Top 2% Oint Topical, TID, Refill(s) 0 Start Date: 10/22/21 Status: Ordered Normal saline (7 sources) Start: 07-05-2015 Malcolm Saline Nasal Gel Nasal, TID, Refill(s) 0, Dry nasal passages Start Date: 07/05/15 Status: Ordered Malcolm Saline Nasal Gel Nasally Active omeprazole 40 mg delayed release oral capsule (20 sources) Proton Pump Inhibitor Start: 02-23-2020 take 1 capsule by mouth once daily Omeprazole 40 mg capsule,delayed release(DR/EC) Active 40 MG PO Daily March 28, 2020 1:00am OXcarbazepine 600 mg oral tablet (20 sources) Anti-epileptic Agent Start: 06-28-2023 Oxcarbazepine 600 mg tablet Active 300 MG PO Twice daily June 28, 2023 1:14pm Start: 06-28-2023 take 300 mg by mouth twice daily Oxcarbazepine Active 300 MG PO Twice daily June 28, 2023 1:14pm Start: 02-23-2020 End: 06-28-2023 take 1 tablet by mouth twice daily Oxcarbazepine 300 mg tablet Discontinued 300 MG PO Twice daily March 28, 2020 1:00am June 28, 2023 1:22pm Start: 02-23-2020 End: 06-28-2023 take 1 tablet by mouth twice daily Oxcarbazepine 600 mg tablet Discontinued 600 MG PO Twice daily March [...] bid, Prophylaxis Start Date: 07/05/15 Status: Ordered [id number] oral powder for reconstitution (1 source) Start: 023 [id number] oral powder for reconstitution Start Date: 12/16/22 Status: Ordered polyethylene glycol 3350 53267 mg powder for oral solution (4 sources) [...] 0 Start Date: 10/22/21 Status: Ordered sennosides, correction 8.6 mg oral tablet (3 sources) Start: 020 take 2 tablets by mouth twice daily as needed Sennosides (Senna) 8.6 mg Tablet Active 17.2 MG PO Twice daily as needed for No BM in 4 Days March 28, 2020 1:00am sertraline 25 mg oral tablet (6 sources) Serotonin Reuptake Inhibitor Start: 024 take 1 tablet by mouth once daily Sertraline 25 mg tablet Active 25 MG PO Daily June 28, 2023 12:00am take 1 tablet by rebecca every twenty-four hours Sertraline HCl 25 MG 1 tablet Orally Onc e a day Active Sodium Chloride-Aloe Vera (A yr Saline) gel (3 sources) Start: 06-28-2023 Sodium Chlorid e-Aloe Vera (Malcolm Saline) gel Active 1 APPLIC TOPICAL Daily at bedtime as needed June 28, 2023 12:00am Start: 06-28-2023 Sodium Chlorid e-Aloe Vera (Malcolm Saline) gel Active 1 APPLIC TOPICAL Daily at bedtime June 28, 2023 12:00am tamsulosin hydrochloride 0.4 mg oral capsule (10 sources) alpha-Adrenergic Rachelle Start: 07-04-2015 take 1 capsule by mouth once daily Tamsulosin 0.4 mg capsule Active 0.4 MG PO Daily March 28, 2020 1:00am Vitamin D3 5000 intl units oral capsule (1 source) Start: 12-16-2022 Vitamin D3 5000 intl units oral capsule Start Date: 12/16/22 Status: Ordered Completed/Discontinued Medications Medication Drug Class(es) Dates Sig (Normalized) Sig (Original) acetylcysteine 100 mg/ml inhalation solution (3 sources) Antidote, Mucolytic, Antidote for Acetaminophen Overdose Start: 03-28-2020 End: 07-06-2023 take 100 mg by inhalation every four hours Acetylcysteine 100 mg/mL (10 %) solution Discontinued 2 ML INHALATION Q4H March 28, 2020 1:00am July 06, 2023 10:22am Start: 03-28-2020 End: 07-06-2023 take 1 mL by inhalation every four hours Acetylcysteine Discontinued 2 ML INHALATION Q4H March 28, 2020 1:00am July 06, 2023 10:22am levoFLOXacin 750 mg oral tablet (3 sources) Quinolone Antimicrobial Start: 03-28-2020 End: 06-28-2023 take 1 tablet by mouth once daily Levofloxacin 750 mg tablet Discontinued 750 MG PO Daily March 28, 2020 1:00am June 28, 2023 1:09pm Polyethylene Glycol 3350 (Clearlax) 17 gram/dose Powder (3 sources) Start: 03-28-2020 End: 07-06-2023 Polyethylene Glycol 3350 (Clearlax) 17 gram/dose Powder Discontinued 17 GM PO Daily March 28, 2020 1:00am July 06, 2023 10:26am Start: 03-28-2020 Polyethylene G lycol 3350 (Clearlax) 17 gram/dose Powder Active 17 GM PO Daily March 28, 2020 1:00am predniSONE 20 mg oral tablet (3 sources) Start: 03-28-2020 End: 07-06-2023 take 1 tablet by mouth once daily Prednisone 20 mg tablet Discontinued 20 MG PO Daily March 28, 2020 1:00am July 06, 2023 10:26am Sodium Chloride-Aloe Vera (Saline Nasal (Aloe Vera)) Gel (3 sources) Start: 03-28-2020 End: 06-28-2023 Sodium Chloride-Aloe Vera (Saline Nasal (Aloe Vera)) Gel Discontinued 2 APPLIC INTRANASAL Three times daily March 28, 2020 1:00am June 28, 2023 1:23pm divalproex sodium 125 mg delayed release oral capsule (20 sources) Mood Stabilizer, Anti-epilepti c Agent Start: 06-28-2023 End: 06-28-2023 take 2 capsules by mouth twice daily Divalproex 125 mg capsule, delayed rel sprinkle Discontinued 250 MG PO Twice daily June 28, 2023 1:06pm June 28, 2023 1:22pm Start: 06-28-2023 End: 06-28-2023 take 250 mg by mouth twice daily Divalproex Discontinued 250 MG PO Twice daily June 28, 2023 1:06pm June 28, 2023 1:22pm Start: 02-23-2020 take 1 tablet by rebecca th twice daily Divalproex 250 mg tablet,delayed release (DR/EC) Active 250 MG PO Twice daily June 28, 2023 1:07pm Start: 02-23-2020 End: 06-28-2023 take 1 capsule by mouth twice daily Divalproex 125 mg capsule, delayed rel sprinkle Discontinued 125 MG PO Twice daily March 28, 2020 1:00am June 28, 2023 1:21pm Start: 02-23-2020 take 1 mg by mouth t hree times daily divalproex sodium 125 mg Cap-EC mg cap(s), Oral, TID, Refills(s) 0 Start Date: 10/22/21 Status: Ordered Start: 02-23-2020 End: 06-28-2023 take 1 tablet by mouth three times daily Divalproex 250 mg tablet,delayed release (DR/EC) Discontinued 250 MG PO Three times daily March 28, 2020 1:00am June 28, 2023 1:21pm Problems Active Problems Problem Classification Problem Date Documented Da te Episodic/Chronic Attention-deficit, conduct, and disruptive behavior disorders (7 sources) Attention deficit hyperactivity disorder, predominantly inattentive [...] Episodic Chronic obstructive pulmonary disease and bronchiectasis (16 sources) Chronic obstructive lung disease; Translations: [Chronic [...] convulsions] Onset: 2 06-30-2013 Episodic Esophageal disorders (4 sources) Gastro-esophageal reflux disease without esophagitis; Translations: [...] 06-30-2013 Chronic Other aftercare (5 sources) Other alf (current) drug therapy; Translations: [OTH FORENSIC AUDIT EXPERT CURRENT DRUG THERAPY] Onset: 3 Episodic Other [...] Onset: 2 Episodic Other lower respiratory disease (3 sources) Wheezing; Translations: [Wheezing] 03-31-2023 Episodic Comment on above: Problem List clean-u p per request of Phys. EHR Cmte Other nutritional; endocrine; and metabolic disorders (5 sources) Disorder of urea cycle metabolism, unspecified; 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] Onset: 2 Chronic Other screening for suspected conditions (not mental disorders or infectious disease) (2 sources) Abnormal finding of blood chemistry, unspecified; Translations: [Abnormal electrocardiogram [ECG] [EKG]] Onset: 3 Episodic Other upper respiratory disease (3 sources) Seasonal allergy; Translations: [Other seasonal allergic rhinitis] 07-06-2023 Chronic Other upper respiratory infections (6 sources) Chronic sinusitis; Translations: [Chronic sinusitis, unspecified] [...] specified sepsis] Onset: 3 Episodic Thyroid disorders (9 sources) Hypothyroidism; Translations: [Hypothyroidism, unspecified] Onset: 3 [...] Interpretation Reference Range Facility Anesthesia Postprocedure Lucia wolff 06-12-2024 Industrial Training Specialist Authentication Interface Message Text Anesthesia Postoperative Assessment: [...] EVENTS: No notable events documented. Normal [facility] Anesthesia Preprocedure Chelsea longo 06-12-2024 Industrial Training Specialist Authentication Interface Message Text ASA: 3 No [...] were discussed with the patient and/or legal customer relations representative. The risks, benefits and alternatives were reviewed. Questions regarding anesthesia were answered. Patient and/or legal customer relations representative knows such anesthetics and procedures may be performed by Resident physicians, Certified Anesthesiologist Assistants, or Certified Nurse Anesthetists under the supervision of a physician. The patient /or the patient's legal customer relations representative agree with the plan for anesthesia. Comment: Consent obtained from patient's mother over the phone. Also explained what to expect from anesthesia to patient's caregiver from senior living [facility] Social History Socioeconomic History Marital status: Single Social History Narrative Resident at [facility]. Mom is guardian CBC 06/02/2024 3:03 PM [...] Vitamin D3 125 mcg, DAILY Normal [facility] Anesthesia Transfer Of [facility] n 06-12-2024 Industrial Training Specialist Authentication Interface Message Text Patient taken to [...] 1 extraction; Surgeon: Ap Scott DDS; Location: [facility] [place]; Service: Dental Allergies: Promethazine, Amoxicillin-pot clavulanate, Pertussis [...] Right Hand (Active) Site Assessment WNL;Dressing intact 06/12/24735 Infusion Status Port #1 Infusing 06/12/24 0736 Airway Insertion Details [REMOVED] Advanced Airway: ETT, [...] Secured via: Taped 06/12/24745 Site Assessment WNL 06/12/24 0746 All non-working IVs have been removed: N/A [...] the report was received. ILIANA Clements [facility] Blood Attestationon 06-12-19 Industrial Training Specialist Authentication Interface Message Text Blood Attestation: REFUSAL OF BLOOD OR BLOOD COMPONENTS: The patient and/or legal customer relations representative has been explained the need for transfusion of blood and/or blood components. The risks, benefits and alternatives have been explained. Questions concerning the transfusion of blood or blood components have been asked and answered. The patient and/or legal customer relations representative have REFUSED TO CONSENT transfusion of blood or blood products. PER PATIENT'S MOTHER Normal [facility] Brief Operative Noteon 06-12 Industrial Training Specialist Authentication Interface Message Text Brief Operative Note PHE OR 3 Parish Lopez 44 year old male Surgical Contact Serial Number: [id number] Preoperative Diagnosis: Pre-op Diagnosis * Caries [K02.9] Mental disability COPD Hyperthyroidism Seizures HLD GERD Postoperative Diagnosis: Mental disability COPD Hyperthyroidism Seizures HLD GERD Procedures: Full mouth x-rays [18857] Comprehensive Exam [37017] Dental prophylaxis [89655] Surgeon(s): Surgeon(s): pA Scott DDS Staff: Complaint Analyst Nurse: Felisha Moore Anesthesia: General Anesthesiologist: Blake [...] Thompson DDS 06/12/2024 7:03 AM Normal [facility] OP Noteon 06-12-2024 Industrial Training Specialist Authentication Interface Message Text Operative Note PHE OR 3 Parish Lopez 44 year old male Surgical Contact Serial Number: [id number] Preoperative Diagnosis: Pre-op Diagnosis * Caries [K02.9] Mental disability COPD Hyperthyroidism Seizures HLD GERD Postoperative Diagnosis: Mental Disability COPD Hyperthyroidism Seizures HLD GERD Procedures: Full mouth x-rays [47324] Comprehensive Exam [77140] Dental prophylaxis [14573] Surgeon: Ap Scott DDS Conveyor System Operator Surgeon: Hansel Burgess DDS; Beatris Thompson DMD [...] Thompson DDS 06/12/2024 7:07 AM Normal [facility] Progress Noteson 06-12-2024 Industrial Training Specialist Authentication Interface Message Text ----- Wednesday, June 12, 2024 at 8:41:56 AM ----- ----- Provider: [id number] - Ap Adams DDS -- Clinic: [facility] ----- [facility], pt is ready for tx. [place], only scaling was done. __ Operative Note PHE OR 3 Parish Lopez 44 year old male Surgical Contact Serial Number: [id number] Preoperative Diagnosis: Pre-op Diagnosis * Caries [K02.9] Mental disability COPD Hyperthyroidism Seizures HLD GERD Postoperative Diagnosis: Mental Disability COPD Hyperthyroidism Seizures HLD GERD Procedures: Full mouth x-rays [68773] Comprehensive Exam [51015] Dental prophylaxis [17082] Surgeon: Ap Scott DDS Conveyor System Operator Surgeon: Hansel Burgess DDS; Beatris Thompson DMD [...] DDS -- Clinic: [facility] ----- Normal [facility] Telephone Encounteron 2024 Industrial Training Specialist Authentication Interface Message Text Informed Consent for dental surgery AND Anesthesia consent obtained and scanned into [employer]. Scheduled for surgery 06/12/2024. Normal [facility] Addendum Noteon 06-02-2024 Industrial Training Specialist Authentication Interface Message Text Addended by: BOYD JOHNSON on: 06/02/2024 05:54 PM Modules accepted: Orders Normal [facility] BASIC METABOLIC PANELon - Anion gap [Moles/Vol] 18 mmol/L Normal 10-20 [facility] Comment on above: Performed By: #### C H8 ####[facility] [id number] [place], [place], Calcium [Mass/Vol] 10.5 mg/dL High 8.6-10.3 The [facility] Comment on above: Performed By: #### C H8 ####[facility] [id number] [place], [place], Chloride [Moles/Vol] 109 mmol/L High 98-107 The [facility], [place] Comment on above: Performed By: #### C H8 ####[facility] [id number] [place], [place], CO2 [Moles/Vol] 22 mmol/L Normal 21-31 The [facility] [place] Comment on above: Performed By: #### C H8 ####[facility] [id number] [place], [place], Creatinine [Mass/Vol] 0.61 mg/dL Low 0.70-1.30 The [facility] [place] Comment on above: Performed By: #### C H8 ####[facility] [id number] [place], [place], ESTIMATED GFR (CKD-EPI) 121 mL/min/1.73sqm Normal >=60 The [facility] Comment on above: Result Comment: 2020 CKD EPI Equation using Creatinine without Race Comment: Estimated glomerular filtration rate (eGFR) is calculated without a race coefficient. Values should be interpreted in the context of the patient's full clinical presentation. Reference: 1. Ata C, Bia M, Beata DC, et al.. A Unifying Approach for GFR Estimation: Recommendations of the NKF-ASN Task Force on Reassessing the Inclusion of Race in Diagnosing Kidney Disease. [place] Journal of Kidney Diseases 202;79(2):268-88.e1. 2. N Engl J Med 1 Vol. 385 Issue 19 Pages 3325-3360 Performed By: #### C H8 ####S PATHOLOGY [id number] [place], [place], Glucose [Mass/Vol] 126 mg/dL High 74-109 The [facility] Comment on above: Performed By: #### C H8 ####S PATHOLOGY [id number] [place], [place], Potassium [Moles/Vol] 4.8 mmol/L Normal 3.5-5.0 The [facility] Comment on above: Performed By: #### C H8 ####S PATHOLOGY [id number] [place], [place], Sodium [Moles/Vol] 144 mmol/L Normal 136-145 The [facility] Comment on above: Performed By: #### C H8 ####S PATHOLOGY [id number] [place], [place], Urea nitrogen [Mass/Vol] 14 mg/dL Normal 7-25 The [facility] Comment on above: Performed By: #### C H8 ####[facility] [id number] [place], [place], COMPLETE BLOOD COUNTon 06-02 Erythrocyte distribution width (RBC) [Ratio] 14.5 % Normal 11.5-14.5 The [facility] Comment on above: Performed By: #### C BC #### S PATHOLOGY LABORATORY [address] [place] [address], Hematocrit (Bld) [Volume fraction] 42.5 % Normal 41.0-53.0 The [facility] Comment on above: Performed By: #### C BC #### S PATHOLOGY LABORATORY [address] [place] [address], Hemoglobin (Bld) [Mass/Vol] 13.8 g/dL Low 13.9-16.3 The [facility], [place] Comment on above: Performed By: #### C BC #### [facility] PATH[facility]ORATORY [address] [place] [address], MCH (RBC) [Entitic mass] 30.7 pg Normal 26.0-34.0 The [facility] Comment on above: Performed By: #### C BC #### [facility] PATH[facility] [address] [place] [address], MCHC (RBC) [Mass/Vol] 32.4 g/dL Normal 32.0-35.9 The [facility] Comment on above: Performed By: #### C BC #### [facility] [address] [place] [address], MCV (RBC) [Entitic vol] 95 fL Normal 80-100 The [facility] Comment on above: Performed By: #### C BC #### [facility] [address] [place] [address], Platelet mean volume (Bld) [Entitic vol] 9.3 fL Normal 7.5-11.[address] [facility] Comment on above: Performed By: #### C BC #### S PATHOLOGY LABORATORY [address] [place] [address], Platelets (Bld) [#/Vol] 419 10*3/uL High 150-400 The [facility] Comment on above: Performed By: #### C BC #### S PATHOLOGY LABORATORY [address] [place], [place], RBC (Bld) [#/Vol] 4.49 10*6/uL Low 4.50-5.90 [facility] Comment on above: Performed By: #### C BC #### S PATHOLOGY LABORATORY [address] [place] [address], WBC (Bld) [#/Vol] 7.0 10*3/uL Normal 4.5-11.5 [facility] Comment on above: Performed By: #### C #### [facility] [address] [place], [place], Patient Instructionson 06-02 Industrial Training Specialist Authentication Interface Message Text RECOMMENDATIONS: Patient was instructed on the following: Nothing by mouth after midnight before surgery except following meds with sip of water on AM of surgery: as per anesthesia Stop aspirin 7 days before surgery Stop NSAID 5 days before surgery Stop Vitamin E 10 days prior to surgery Stop alternative/herbal medication 10 days before surgery Boyd Johnson MD Normal The [facility] [place] Progress Noteson 06-02-2024 Industrial Training Specialist Authentication Interface Message Text Blood pressure 154/73, [...] 1 extraction; Surgeon: Ap Scott DDS; Location: [facility] Surgery [place]; Service: Dental Pertinent Social History Reviewed Social [...] fever, chills, night sweats, and weight loss 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 Normal [facility] THYROXINE (T4), FREEon 06-02 T4 F 0.70 ng/dL Normal 0.61-1.12 [facility] Comment on above: Performed By: #### T MAICOL HS, T4 F #### [facility] [address] [place], [place], TSHon 06-02-2024 TSH 0.229 uIU/mL Low 0.450-5.330 The [facility] Comment on above: Performed By: #### T MAICOL HS, T4 F #### [facility] [address] [place], [place], No Panel Informationon 05-31 [facility] Progress Noteson 04-25-2024 Industrial Training Specialist Authentication Interface Message Text Parent/guardian/patie nt was contacted for PSE AND OR scheduled -- confirmed information with mom, also informed mom importance of receiving PSE call -- if not received surgery will be canceled. 06/12/2024 ----- Thursday, April 25, 2024 at 2:35:00 PM ----- ----- Provider: PEARL Ace, Dental-Corrections Caseworker -- Clinic: [place] ----- Normal [facility] No Panel Informationon 03-13 As in note [facility] [employer] [facility] Ambulatory Visit Summaryon 0 12-16-2022 Ambulatory [...] (oxcarbazepine 600 mg Tab) polyethylene glycol 3350 ([id number] oral powder for reconstitution) polyethylene glycol 3350 (polyethylene glycol 3350 17 gram packet) rifaximin (Xifaxan 550 mg oral tablet) senna (Senna 8.6 mg oral tablet) sodium chloride nasal (Malcolm Saline Nasal Gel) tamsulosin Discharge Vitals Temperature (Temporal Artery) 36.7 ?C Heart Rate (Peripheral) 84 Blood Pressure 128/78 Height 158 cm Height 62 in Weight 107.9 kg Weight 237.38 lb BMI 43.22 What to do next You Need to Schedule the Following Appointments Follow Up with Abner BYRNE, JUNIOR [facility] When: Comments: PRN Where: Medications What [...] Application T (more content not included)... Normal [facility] Patient Educationon 12-17-19 23 Patient Education [...] provider. Document Revised: 08/14/2021 Document Reviewed: 08/14/2021 [employer] Patient Education ? 2022 [employer] Normal [facility] Physician Orderon 12-16-2022 Physician Order [id number] .[id number]:127 Normal [facility] RAD - Ultrasound Reporton RAD - Ultrasound Report [id number] .[id number]:127 Normal [facility] Urology Office/Clinic Noteon 12-16-2022 Urology Office/Clinic [...] of retractile testes. Pt currently resides in [facility]. CBC/CMP 08/01/22 1. Retractile testis (Q55.22: [...] 12/16/2022 11:26:45. . Documentation recorded by the scribMakayla jones, accurately reflects the services(s) I performed and [...] Eye-Both, QID atorvastatin, 10 mg, Oral, Daily Malcolm Saline Nasal Gel, Nasal, TID azelastine nasal 137 mcg/inh spray, 2 spray(s), Nasal, As (more content not included)... Normal [facility] Comment on above: Result Comment: Elec [...] GUANAKITO MEADE Date: 2022-08-04 18:50 Normal [facility] AMMONIAon 08-02-2022 Ammonia (P) [Moles/Vol] 87 umol/L Critically high [facility] Comment on above: Performed By: #### B MP #### [facility] [address] [address] [address] Deepak Greenfield AMMONIAon 08-01-2022 Ammonia (P) [Moles/Vol] 42 umol/L Critically high [facility] Comment on above: Performed By: #### Karishma Bajwa, CMP #### [facility] [address] [address] [address] Deepak Greenfield CBC W MANUAL DIFFon 08-02-19 23 ATYPICAL LYMPH # 0.41 103/ul Normal [facility] Comment on above: Performed By: #### M G, CMP #### [facility] [address] [place] [address] Dr. Deepak Greenfield ATYPICAL LYMPH % 7 % Normal [facility] Comment on above: Performed By: #### M G, CMP #### [facility] [address] [place] [address] Dr. Deepak Greenfield BAND # 0.0 103/ul Normal 0.0-0.3 [facility] Comment on above: Performed By: #### M G, CMP #### [facility] [address] [place] [address] Dr. Deepak Greenfield BAND % 0 % Normal 0-5 [facility] Comment on above: Performed By: #### M G, CMP #### [facility] [address] [place] [address] Dr. Deepak Greenfield BASOM # 0.00 103/ul Normal 0.00-0.10 [facility] Comment on above: Performed By: #### M G, CMP #### [facility] [address] [place] [address] Dr. Deepak Greenfield BASOM % 0.0 % Critically low 0.2-2.0 [facility] Comment on above: Performed By: #### M G, CMP #### [facility] [address] [place] [address] Dr. Deepak Greenfield BLAST # Normal [facility] Comment on above: Performed By: #### M G, CMP #### [facility] [address] [place] [address] Dr. Deepak Greenfield BLAST % Normal [facility] Comment on above: Performed By: #### M G, CMP #### [facility] [address] [place] [address] Dr. Deepak Greenfield CORRECTED WBC Normal 4.0-11.[address] [facility] Comment on above: Performed By: #### M G, CMP #### [facility] [address] [place] [address] Dr. Deepak Greenfield EOS # 0.06 103/ul Normal 0.00-0.70 [facility] Comment on above: Performed By: #### M G, CMP #### [facility] [address] [address] [address] Deepak Greenfield EOS% 1.0 % Normal 0.9-7.0 [facility] Comment on above: Performed By: #### M G, CMP #### [facility] [address] [address] [address] Deepak Greenfield HCT 37.6 % Critically low 42.0-54.0 The [facility] Comment on above: Performed By: #### M G, CMP #### [facility] [address] [address] [address] Deepak Greenfield HGB 12.3 g/dl Critically low 14.0-18.0 [facility] Comment on above: Performed By: #### M G, CMP #### [facility] [address] [address] [address] Deepak Greenfield LYMPHM # 1.91 103/ul Normal 1.20-3.80 [facility] Comment on above: Performed By: #### M G, CMP #### [facility] [address] [address] [address] Deepak Greenfield LYMPHM% 33.0 % Normal 20.5-60.0 [facility] Comment on above: Performed By: #### M G, CMP #### [facility] [address] [address] [address] Deepak Greenfield MCH 31.7 pg Normal 25.9-34.0 [facility] Comment on above: Performed By: #### M G, CMP #### [facility] [address] [address] [address] Deepak Greenfield MCHC 32.7 g/dl Normal 29.9-35.2 [facility] Comment on above: Performed By: #### M G, CMP #### [facility] [address] [address] [address] Deepak Greenfield MCV 96.9 fL Critically high 80.0-94.0 The [facility] Comment on above: Performed By: #### M G, CMP #### [facility] [address] [address] [address] Deepak Greenfield METAMYELOCYTE # Normal [facility] Comment on above: Performed By: #### M G, CMP #### [facility] [address] [address] [address] Deepak Greenfield METAMYELOCYTE % Normal [facility] Comment on above: Performed By: #### M G, CMP #### [facility] [address] [address] [address] Deepak Greenfield MONOM# 0.29 103/ul Critically low 0.30-0.80 [facility] Comment on above: Performed By: #### M G, CMP #### [facility] [address] [address] [address] Deepak Greenfield MONOM% 5.0 % Normal 1.7-12.0 [facility] Comment on above: Performed By: #### M G, CMP #### [facility] [address] [place] [address] Dr. Deepak Greenfield MPV 11.0 fL Normal 9.5-13.5 [facility] Comment on above: Performed By: #### M G, CMP #### [facility] [address] [place] [address] Dr. Deepak Greenfield MYELOCYTE # Normal [facility] Comment on above: Performed By: #### M G, CMP #### [facility] [address] [place] [address] Dr. Deepak Greenfield MYELOCYTE % Normal [facility] Comment on above: Performed By: #### M G, CMP #### [facility] [address] [place] [address] Dr. Deepak Greenfield NRBC Normal [facility] Comment on above: Performed By: #### M G, CMP #### [facility] [address] [place] [address] Dr. Deepak Greenfield PLT 208 103/ul Normal 150-450 [facility] Comment on above: Performed By: #### M G, CMP #### [facility] [address] [address] [address] Deepak Greenfield RBC 3.88 106/ul Critically low 4.70-6.10 [facility] Comment on above: Performed By: #### M G, CMP #### [facility] [address] [place] [address] Dr. Deepak Greenfield RDW 12.9 % Normal 11.0-15.0 [facility] Comment on above: Performed By: #### M G, CMP #### [facility] [address] [address] [address] Deepak Greenfield SEG # 3.13 103/ul Normal 1.40-6.50 [facility] Comment on above: Performed By: #### M G, CMP #### [facility] [address] [place] [address] Dr. Deepak Greenfield SEG % 54.0 % Normal 43.0-75.0 [facility] Comment on above: Performed By: #### M G, CMP #### [facility] [address] [place] [address] Dr. Deepak Greenfield STOMATOCYTES 3+ Normal [facility] Comment on above: Performed By: #### M G, CMP #### [facility] [address] [place] [address] Dr. Deepak Greenfield WBC 5.8 103/ul Normal 4.0-11.0 [facility] Comment on above: Performed By: #### M G, CMP #### [facility] [address] [place] [address] Dr. Deepak Greenfield PROF CHEM 8 (BAS METB)on Anion gap [Moles/Vol] 16.1 mmol/L Normal [facility] Comment on above: Performed By: #### B MP #### [facility] [address] [place] [address] Dr. Deepak Greenfield Calcium [Mass/Vol] 9.3 mg/dL Normal 8.5-10.1 [facility] Comment on above: Performed By: #### B MP #### [facility] [address] [place] [address] Dr. Deepak Greenfield Chloride [Moles/Vol] 105 mmol/L Normal 98-107 [facility] Comment on above: Performed By: #### B MP #### [facility] [address] [address] [address] Deepak Greenfield CO2 [Moles/Vol] 27.6 mmol/L Normal 21.0-32.0 [facility] Comment on above: Performed By: #### B MP #### [facility] [address] [address] [address] Deepak Greenfield Creatinine [Mass/Vol] 0.96 mg/dL Normal 0.70-1.30 [facility] Comment on above: Performed By: #### B MP #### [facility] [address] [address] [address] Deepak Greenfield EGFR-AF MONTENEGRIN >60 Normal >=60 [facility] Comment on above: Performed By: #### B MP #### [facility] [address] [address] [address] Deepak Greenfield EGFR-NON AF MONTENEGRIN >60 Normal >=60 [facility] Comment on above: Performed By: #### B MP #### [facility] [address] [address] [address] Deepak Greenfield Glucose [Mass/Vol] 160 mg/dL Critically high 74-106 [facility] Comment on above: Performed By: #### B MP #### [facility] [address] [address] [address] Deepak Greenfield Potassium [Moles/Vol] 3.7 mmol/L Normal 3.5-5.1 [facility] Comment on above: Performed By: #### B MP #### [facility] [address] [address] [address] Deepak Greenfield Sodium [Moles/Vol] 145 mmol/L Normal 136-145 [facility] Comment on above: Performed By: #### B MP #### [facility] [address] [address] [address] Deepak Greenfield Urea nitrogen [Mass/Vol] 5.0 mg/dL Critically low 7.0-18.0 [facility] Comment on above: Performed By: #### B MP #### [facility] [address] [place] [address] Dr. Deepak Greenfield Urea nitrogen/Creatinine [Mass ratio] 5.2 mg/mg Normal [facility] Comment on above: Performed By: #### B MP #### [facility] [address] [place] [address] Dr. Deepak Greenfield AMMONIAon 07-31-2022 Ammonia (P) [Moles/Vol] 94 umol/L Critically high 11-32 [facility] Comment on above: Performed By: #### M G, CMP #### [facility] [address] [place] [address] Dr. Deepak Greenfield CBC AUTO DIFFon 07-31-2022 BASO # 0.0 103/ul Normal 0.0-0.1 [facility] Comment on above: Performed By: #### B MP #### [facility] [address] [place] [address] Dr. Deepak Greenfield Basophils/100 WBC (Bld) 0.1 % Critically low 0.2-2.0 [facility] Comment on above: Performed By: #### B MP #### [facility] [address] [place] [address] Dr. Deepak Greenfield EO # 0.0 103/ul Normal 0.0-0.7 [facility] Comment on above: Performed By: #### B MP #### [facility] [address] [place] [address] Dr. Deepak Greenfield Eosinophils/100 WBC (Bld) 0.0 % Critically low 0.9-7.0 [facility] Comment on above: Performed By: #### B MP #### [facility] [address] [place] [address] Dr. Deepak Greenfield Erythrocyte distribution width (RBC) [Ratio] 13.1 % Normal 11.0-15.0 [facility] Comment on above: Performed By: #### B MP #### [facility] [address] [place] [address] Dr. Deepak Greenfield Hematocrit (Bld) [Volume fraction] 32.4 % Critically low 42.0-54.0 [facility] Comment on above: Performed By: #### B MP #### [facility] [address] [address] [address] Deepak Greenfield Hemoglobin (Bld) [Mass/Vol] 10.9 g/dL Critically low 14.0-18.0 [facility] Comment on above: Performed By: #### B MP #### [facility] [address] [address] [address] Deepak Greenfield IG # 0.02 10e3/ul Normal 0.00-0.03 [facility] Comment on above: Performed By: #### B MP #### [facility] [address] [place] [address] Dr. Deepak Greenfield IG % 0.3 % Normal 0.0-0.5 [facility] Comment on above: Performed By: #### B MP #### [facility] [address] [place] [address] Dr. Deepak Greenfield LYMPH # 2.7 103/ul Normal 1.2-3.8 [facility] Comment on above: Performed By: #### B MP #### [facility] [address] [place] [address] Dr. Deepak Greenfield Lymphocytes/100 WBC (Bld) 38.9 % Normal 20.5-60.0 [facility] Comment on above: Performed By: #### B MP #### [facility] [address] [place] [address] Dr. Deepak Greenfield MANUAL DIFF REQ NO Normal [facility] Comment on above: Performed By: #### B MP #### [facility] [address] [place] [address] Dr. Deepak Greenfield MCH (RBC) [Entitic mass] 32.3 pg Normal 25.9-34.0 [facility] Comment on above: Performed By: #### B MP #### [facility] [address] [place] [address] Dr. Deepak Greenfield MCHC (RBC) [Mass/Vol] 33.6 g/dL Normal 29.9-35.2 [facility] Comment on above: Performed By: #### B MP #### [facility] [address] [address] [address] Deepak Greenfield MCV (RBC) [Entitic vol] 96.1 fL Critically high 80.0-94.0 [facility] Comment on above: Performed By: #### B MP #### [facility] [address] [address] [address] Deepak Greenfield MONO # 0.3 103/ul Normal 0.3-0.8 [facility] Comment on above: Performed By: #### B MP #### [facility] [address] [address] [address] Deepak Greenfield Monocytes/100 WBC (Bld) 4.9 % Normal 1.7-12.0 [facility] Comment on above: Performed By: #### B MP #### [facility] [address] [address] [address] Deepak Greenfield NEUT # 3.9 103/ul Normal 1.4-6.5 [facility] Comment on above: Performed By: #### B MP #### [facility] [address] [address] [address] Deepak Greenfield Neutrophils/100 WBC (Bld) 55.8 % Normal 43.0-75.0 [facility] Comment on above: Performed By: #### B MP #### [facility] [address] [address] Dr. Deepak Greenfield Platelet mean volume (Bld) [Entitic vol] 9.7 fL Normal 9.5-13.5 [facility] Comment on above: Performed By: #### B MP #### [facility] [address] [address] [address] Deepak Greenfield PLT 296 103/ul Normal 150-450 [facility] Comment on above: Performed By: #### B MP #### [facility] [address] [address] [address] Deepak Greenfield RBC 3.37 106/ul Critically low 4.70-6.10 [facility] Comment on above: Performed By: #### B MP #### [facility] [address] [place] [address] Dr. Deepak Greenfield WBC 7.0 103/ul Normal 4.0-11.0 [facility] Comment on above: Performed By: #### B MP #### [facility] [address] [place] [address] Dr. Deepak Greenfield PROF CHEM 8 (BAS METB)on Anion gap [Moles/Vol] 14.9 mmol/L Normal [facility] Comment on above: Performed By: #### C BC #### [facility] [address] [place] [address] Dr. Deepak Greenfield Calcium [Mass/Vol] 8.8 mg/dL Normal 8.5-10.1 [facility] Comment on above: Performed By: #### C BC #### [facility] [address] [place] [address] Dr. Deepak Greenfield Chloride [Moles/Vol] 105 mmol/L Normal 98-107 [facility] Comment on above: Performed By: #### C BC #### [facility] [address] [place] [address] Dr. Deepak Greenfield CO2 [Moles/Vol] 26.4 mmol/L Normal 21.0-32.0 [facility] Comment on above: Performed By: #### C BC #### [facility] [address] [place] [address] Dr. Deepak Greenfield Creatinine [Mass/Vol] 0.70 mg/dL Normal 0.70-1.30 [facility] Comment on above: Performed By: #### C BC #### [facility] [address] [place] [address] Dr. Deepak Greenfield EGFR-AF MONTENEGRIN >60 Normal >=60 [facility] Comment on above: Performed By: #### C BC #### [facility] [address] [place] [address] Dr. Deepak Greenfield EGFR-NON AF MONTENEGRIN >60 Normal >=60 [facility] Comment on above: Performed By: #### C BC #### [facility] [address] [place] [address] Dr. Deepak Greenfield Glucose [Mass/Vol] 129 mg/dL Critically high 74-106 [facility] Comment on above: Performed By: #### C BC #### [facility] [address] [place] [address] Dr. Deepak Greenfield Potassium [Moles/Vol] 4.3 mmol/L Normal 3.5-5.1 [facility] Comment on above: Performed By: #### C BC #### [facility] [address] [place] [address] Dr. Deepak Greenfield Sodium [Moles/Vol] 142 mmol/L Normal 136-145 [facility] Comment on above: Performed By: #### C BC #### [facility] [address] [place] [address] Dr. Deepak Greenfield Urea nitrogen [Mass/Vol] 6.0 mg/dL Critically low 7.0-18.0 [facility] Comment on above: Performed By: #### C BC #### [facility] [address] [place] [address] Dr. Deepak Greenfield Urea nitrogen/Creatinine [Mass ratio] 8.6 mg/mg Normal [facility] Comment on above: Performed By: #### C BC #### [facility] [address] [place] [address] Dr. Deepak Greenfield AMMONIAon 07-30-2022 Ammonia (P) [Moles/Vol] 64 umol/L Critically high 11-32 [facility] Comment on above: Performed By: #### C BC #### [facility] [address] [place] [address] Dr. Deepak Greenfield CBC AUTO DIFFon 07-30-2022 BASO # 0.0 103/ul Normal 0.0-0.1 [facility] Comment on above: Performed By: #### I NFLUAB #### [facility] [address] [place] [address] Dr. Deepak Greenfield Basophils/100 WBC (Bld) 0.0 % Critically low 0.2-2.0 [facility] Comment on above: Performed By: #### I NFLUAB #### [facility] [address] [place] [address] Dr. Deepak Greenfield EO # 0.0 103/ul Normal 0.0-0.7 [facility] Comment on above: Performed By: #### I NFLUAB #### [facility] [address] [place] [address] Dr. Deepak Greenfield Eosinophils/100 WBC (Bld) 0.0 % Critically low 0.9-7.0 [facility] Comment on above: Performed By: #### I NFLUAB #### [facility] [address] [place] [address] Dr. Deepak Greenfield Erythrocyte distribution width (RBC) [Ratio] 13.1 % Normal 11.0-15.0 [facility] Comment on above: Performed By: #### I NFLUAB #### [facility] [address] [place] [address] Dr. Deepak Greenfield Hematocrit (Bld) [Volume fraction] 31.4 % Critically low 42.0-54.0 [facility] Comment on above: Performed By: #### I NFLUAB #### [facility] [address] [place] [address] Dr. Deepak Greenfield Hemoglobin (Bld) [Mass/Vol] 10.5 g/dL Critically low 14.0-18.0 [facility] Comment on above: Performed By: #### I NFLUAB #### [facility] [address] [place] [address] Dr. Deepak Greenfield IG # 0.01 10e3/ul Normal 0.00-0.03 [facility] Comment on above: Performed By: #### I NFLUAB #### [facility] [address] [place] [address] Dr. Deepak Greenfield IG % 0.2 % Normal 0.0-0.5 [facility] Comment on above: Performed By: #### I NFLUAB #### [facility] [address] [place] [address] Dr. Deepak Greenfield LYMPH # 1.5 103/ul Normal 1.2-3.8 [facility] Comment on above: Performed By: #### I NFLUAB #### [facility] [address] [place] [address] Dr. Deepak Greenfield Lymphocytes/100 WBC (Bld) 27.5 % Normal 20.5-60.0 [facility] Comment on above: Performed By: #### I NFLUAB #### [facility] [address] [place] [address] Dr. Deepak Greenfield MANUAL DIFF REQ NO Normal [facility] Comment on above: Performed By: #### I NFLUAB #### [facility] [address] [place] [address] Dr. Deepak Greenfield MCH (RBC) [Entitic mass] 32.4 pg Normal 25.9-34.0 [facility] Comment on above: Performed By: #### I NFLUAB #### [facility] [address] [place] [address] Dr. Deepak Greenfield MCHC (RBC) [Mass/Vol] 33.4 g/dL Normal 29.9-35.2 [facility] Comment on above: Performed By: #### I NFLUAB #### [facility] [address] [place] [address] Dr. Deepak Greenfield MCV (RBC) [Entitic vol] 96.9 fL Critically high 80.0-94.0 [facility] Comment on above: Performed By: #### I NFLUAB #### [facility] [address] [place] [address] Dr. Deepak Greenfield MONO # 0.2 103/ul Critically low 0.3-0.8 [facility] Comment on above: Performed By: #### I NFLUAB #### [facility] [address] [place] [address] Dr. Deepak Greenfield Monocytes/100 WBC (Bld) 2.9 % Normal 1.7-12.0 [facility] Comment on above: Performed By: #### I NFLUAB #### [facility] [address] [place] [address] Dr. Deepak Greenfield NEUT # 3.8 103/ul Normal 1.4-6.5 [facility] Comment on above: Performed By: #### I NFLUAB #### [facility] [address] [address] [address] Deepak Greenfield Neutrophils/100 WBC (Bld) 69.4 % Normal 43.0-75.0 [facility] Comment on above: Performed By: #### I NFLUAB #### [facility] [address] [address] [address] Deepak Greenfield Platelet mean volume (Bld) [Entitic vol] 9.4 fL Critically low 9.5-13.5 [facility] Comment on above: Performed By: #### I NFLUAB #### [facility] [address] [address] [address] Deepak Greenfield PLT 256 103/ul Normal 150-450 [facility] Comment on above: Performed By: #### I NFLUAB #### [facility] [address] [address] [address] Deepak Greenfield RBC 3.24 106/ul Critically low 4.70-6.10 [facility] Comment on above: Performed By: #### I NFLUAB #### [facility] [id number] Deepak Greenfield WBC 5.5 103/ul Normal 4.0-11.0 [facility] Comment on above: Performed By: #### I NFLUAB #### [facility] [address] [address] [address] Deepak Greenfield Coding Summary.on 07-30-2022 Coding Summary. CD:[id number] W w+PGhlYWQ+QN8HNPDrQ35 uwEYraO1eA4MQOQmNKzwv MLWDXHpDZhRlenSvJW4dt XNjZXJu IC8+KS9hSJPpMmgbtEJmt 7I0gFX2S66mqg0yFNpdgK X2GQDqUgBsolenk5tvhFe 6IDcuNmluOyBt WCHnhM86HBD8hW51Xx94n CGmcTBeg4kfqJa4NrSfCE PdTFC7lJwfYZkui1WjEVR fO49coZFfe5W8 NMIlxOleqBChIgSfvCI5g V2uKUonzovpr8vcpydyJn u6nt06aPNtf8T7sBD9Q5Z fpxU2WFWtcGUq AexosHBUfH5wjjgvv9yim ejmXtYnIHSrOIa6XUg9DS JbvCemDlShLQ01WJL8CIH mwiVaU1InLRTe jIqhAnP3a5P4Wf3NV9CQX upcF8WJFRINWBgarSQ+PC 17un44H6JbEpqlKzc7SZP dIPY4eGY4eX7a JWIvMWnkn9U1pOA5K1Omc oDlll1wk4vgTUHcKYmpZ9 8krSBka1L7TRJooCM6NBV saWabUjFnqL14 Oyc+UHPdqLiir5LkNlufw 8kmd7oysMh5AdeiCFHwhg FhgBrqDXQ6z5LlKo5dPIC mrUN2mCM8fU7g XhCeGkS3HHgdX386KlEzi NMbFzyxG21pF3WsiCG+PH MqSeo6ANJahKoePQ7yB2I hZGRpbmctbGVm yGzxEU0nOGGysoxcIAEem O4mWDLaH3r8WdRpLpR3IJ qjS2QeZQQsarbmBc51lE4 pOcZoQmU6YCoa U1PghxC5ACYkvPNaIPgwM LS6E96fh8X8UIGoTUIcFC T8dHN7vX8ohRzkjsppwFH mdDsgdmVydGlj FZzfAWebB761DNWdbLnmY kNvZGluZyBEYXRlOiAgMD QvMTMvMjAyMzwvdGQ+PHR cKSV0gEglDFPg tZNeCPvrGa5kjPhkzCcoV Y4rLRQkapegIRWzvM2wMM UiqYGkjPksBY9cAVDohwx tm978MkXsBBT8 RYVhnXIaQ9EiaA9mRdJbX UZbSAOqW4GugTYpUZchX7 23DHvxAfI4DACvfvZhG6A sLWFsaWduOiB0 e2O5Pt4Ez2XkfcwoH4Soz BNhAnSaKomtCPl4G4BcJv wvdHI+ZE10MMVhMR14ZFy 1YQK5xXfuJGpq YCPfK2TygO8pHpHmABDrF GRkOyc+PHRhYmxlIHdpZH RoPScxMDAlJyBzdHlsZT0 pGg5vQWHqSUUy cJvuaCDtUqBfh5snJZLmK WabVY9iyYzkT1OrfXB4ZD Vgt4z2Ww25E85yN4OoqOM +BZHgxAT0zBZ5 gU5aWpRgOvF5MEvzI385V vKjnOYzXyiqp4rdz5wngE x2LsW3KPVjkaLqqXsvFZZ 5a5FbLk45F21u IHdpZHRoPSIxNSUiIHZhb Dpqon1qtQ5rQt6+PGNvbC G6sXD1hJ2lMkRpYeC4GZp aU632OoOfrGDy Bvvst4yhb6edjEv5UsPwY OLdphXgwBdbYRP9x4VkFt 17N9OitPexp1FpUwx1so4 0zNCkh4W6vNV7 L8AwVLAmhzdgjQYpmXaxQ G8bWQYynwjcEBXarJ0kYL XcG1c8AcAtYdE8MDsjQ2H lwfA7EXAktXDd RUKnqRAHnF9ubyxkt5cyv mrkLlTiVZAjANv0DEb4CV YdiFthMaDrOYF6VuC1PTC 5wFDndE6tiJhs iwuepM3aWhl+XZV1jEBbb VYKEJ2oXrgxkBL+PHRkIH W9rHhlSRncQTCedZ1eGDY oB5v3PiQkFsR6 KElfU5UzitK9VVGpgRUoR PWssSDZaG2ptxppf1vrbo ygUhJqOOXlEQo8OIv8TMQ saWduOiBsZWZ0 OdX8CWN8cQLltO2agYwrt bheyO5rUqa+QmlydGggRG Y4YQm3J1ZgLeh3FGNatAw iSK3dwUZdDKme Wz8tpCylkGdzRY2nVKVaj nhkd195YbIuk2acRNKsvP KnDSxgBVH8H38fz8K7IMD hCTSjIDG0gCV9 rN0kaZtdkdkwuTGwfKgke hNuzPigMMreTCiaC892OM OyzSzvCaGsNMp9X8FdGxx 4LHBqnKujMF3y zYWsJOvyWc4hzIyvpYfcL D8eQGCahxgka015JiLys3 jsGJEqjRJtCHgaKVJ4Y16 jb1J6XMWlQEKg BQV5rVN8iB7rxBypuebrz GVmdDsgdmVydGljYWwtYW ucR905VHPxnGvwGwPmdVa 2S5UvFyf3EPLq uGnoCL3qtZTiSKnvVu7gm OnvcDazET3pPRYavpynu2 28SmQsl5qqIYRbiGAzBYr cOTV7G42tw2H5 WOWuJBXcYNQ0uYN7wQ1fd GlnbjogbGVmdDsgdmVydG jcEDebEUbbG823IZQvgCf nPlBhdGllbnQg PLrrZNt0N9KbPjyxcAO+P O16ZMBmIX70qUDmfDWst4 ltaFx5PeMuSLPeKWP0pSh bUXovp5MjSLCb Q19woTYgv3L5LYSteRahu CIfFsXdoOE8wU2oVPttsu kna5rblzknSifsw5wuko9 3lM54C77tDDqn ZHRoPSIzMCUiIHZhbGlnb d8nbT0hXb6+ZZUioKZ7tM Q4eI1vVKOqNxJ7NPagB23 9InRvcCIvPjxj p0xzz4odxZy6UiK9XPOrx rZncMdtBGL5u0NlUh94Q8 9sIHdpZHRoPSIyMCUiIHZ byGkeze2deD6s Ii8+TITezPX1sUZ3aH9nL yQwLgA8DGuqO014EpKxzG SdOjqlZ63fK9HxsPK+PHR lCqc5CXIbbPck WY8mnRJaNGirKy8zALV8F fSaNqDlDJuvB1ArFNTllk xxkvnvlCP9WNCfAERaiI8 6Xl6naBgiANEd bUIUnF0grxese7wjnezgB yPpEKDxABt6IDu1FLZoeO irNyZkRBY6QzE9ECR1fRJ dhU3uyPjsfkra bD6xS3TdUGVoceezOj93p X0nWoGnYfF1WDtaIgi+U0 5XXPEOTGVAVAFERdUGSF5 5VD10lLHio9K4 zPW6C2CpOBZbipknqojpn RW8ZASyOVJmoS02hOWoRZ jyJt6kq1A1f975NMDpXZA ykM63Jm2xpEit BCWzxMVOiJ4vlqyyr5wut etwMwLpYTZsCQv2BHg3DB SutUpdXkPlLYL9IlX1EBR 3wHOasN0nvFkr ryjobC3hAyg+MTAvMTYvM Sp5AAivbUD+RBItFID6cO xzSUheLILjkG0ySPMrO1a 0GoYlKgI0IHup Z0LvHRYzkqtrEi96fP8oX rHkTkC6UDroE6JhbzA6BL BarCQeQKraNRQ8F98gc1N 7ODQhDIEmCTN7 hUL6pV8jcFyaibhuuFHhb DsgdmVydGljYWwtYWxpZ2 46IHRvcDsnPjQyIFllYXJ qYS65SW17oCJz e0W8kZA1P8ThAVIlznduu mzdaNL5JWQnWESgnQ46fA KfVCigJv7dz6F5n585NQV pMQGnlV16Nx2g mVhoVVFlxEHRqK5ehgmkp 7clekdxXvGpHJWoOPo1LW s3PISksEfvBjOjIXM0BbX 1IIP6uJPhgW4l uMhqeguozS9wKzk+TWFsZ TwvdGQ+NLWrETB6xFamOL yjHIRwjP9uMCGjC4i1KbX qWsF9UVcdK2Is VAJmkpmzHi86oL4qAoKlK kC6LKisX1AyvtK8XPNhuZ JuTJxhIMP6W52nf1M1HBZ xIGXeZLI4dTT3 pI0iuZbderkwaVJecCxtf jNhvXyiLYkxXExgS625JJ LztBcyZf69cSScpAmhosF 9J5GlKotsnMB+ YP03KCCkCF94uRGmuWKhp 8baoFj4OoTtABEoWKS2kA uxLJbzy9VaDHQwI81gzHE ho6C8UUBbeZxt bMAtNcOdeIJ9hR5pZBkms uqwf4ftxkxqJfdpj9glpr 43aZ24D14vGRpsWTLyFRL zMCUiIHZhbGln ta9djE2qYt1+CAAhbWP6s MV0kL0wNyRvFwE9OOxeZ3 80HlPsrLVqEwinx3vac3z qkZh4WpZxPYAy iqInxMmuXBU2s7FfDf39Z 29sIHdpZHRoPSIyMCUiIH IefJbqqq5pjW2pDk7+PC9 nj0mhzh45tF07 dHI+EDYzQXT6iHqiGMkdH XCzeZ7eRTisUgR1NOVdYb ExtT25yNWgASkvEm3tpJt kgBtkKS0aJWCk ktiyn005InIrd9jlRUMrk TNzTGvgFJL6G33zn2U6DY NqNARnRXK8kNZ2yF5fyPq nbjogbGVmdDsg roVanSkcRHfkQIxqA960S GOwfMzmEcZywMEnK0qbbl VVWQ2eLjzfoZN+PHRkIHN 0eWxlPSdwYWRk yM4pMQWnD4l4FlFiUsB7E WmxM6TzlsX0PDIbiWKrTF LloYPGhR9ypmhmo3zrvrv gIzAwMDAwMDt0 NNl1SIQcfFybUlRaXDC4O tP5MKB2sVLhzP6wqLxjwb jygZ7rAsj+RklOOjwvdGQ +THLgHTF7dUkj UHvaWSFdwH2uWSFxA1s6U nKyTmM0XWymA8DgjdH2LB RjuXYzQCQvqGTLbB3vihb ro0jdnlerVdXx ACGgFVv3XWh2TZKewXsfA qQvTXI8PrF1SZZ2yRBevW 8wdQsrxpvokA6fBlu+TVJ OOjwvdGQ+PHRk PSP0cCjePQmqJEGafY2iA CDsE8g9CzNbYhD1AKafP8 SlbyY8YURhcKEgOLXsdCO YtJ7wqguek9eg zhhwPoNdXIFkRIi5YQp2D OMvdJgtKwRcYVZ4AcF2NQ S0yTUjrY5rhIupwqanyD5 wOyc+UIR0HVV6 CR23LR61E3CsCrgiiHWcy +PHRhYmxlIHdpZHRoPS bjMLCkMyXlhSuvTF1hMr7 yZGVyLWNvbGxh cHNlOiBj (more content not included)... Normal [facility] PROF CHEM 8 (BAS METB)on Anion gap [Moles/Vol] 8.3 mmol/L Normal [facility] Comment on above: Performed By: #### I NFLUAB #### [facility] [address] [address] [address] Deepak Greenfield Calcium [Mass/Vol] 8.5 mg/dL Normal 8.5-10.1 [facility] Comment on above: Performed By: #### I NFLUAB #### [facility] [address] [address] [address] Deepak Greenfield Chloride [Moles/Vol] 104 mmol/L Normal 98-107 [facility] Comment on above: Performed By: #### I NFLUAB #### [facility] [address] [place] [address] Dr. Deepak Greenfield CO2 [Moles/Vol] 30.0 mmol/L Normal 21.0-32.0 [facility] Comment on above: Performed By: #### I NFLUAB #### [facility] [address] [place] [address] Dr. Deepak Greenfield Creatinine [Mass/Vol] 0.46 mg/dL Critically low 0.70-1.30 [facility] Comment on above: Performed By: #### I NFLUAB #### [facility] [address] [place] [address] Dr. Deepak Greenfield EGFR-AF MONTENEGRIN >60 Normal >=60 [facility] Comment on above: Performed By: #### I NFLUAB #### [facility] [address] [place] [address] Dr. Deepak Greenfield EGFR-NON AF MONTENEGRIN >60 Normal >=60 [facility] Comment on above: Performed By: #### I NFLUAB #### [facility] [address] [place] [address] Dr. Deepak Greenfield Glucose [Mass/Vol] 152 mg/dL Critically high 74-106 [facility] Comment on above: Performed By: #### I NFLUAB #### [facility] [address] [place] [address] Dr. Deepak Greenfield Potassium [Moles/Vol] 4.3 mmol/L Normal 3.5-5.1 [facility] Comment on above: Performed By: #### I NFLUAB #### [facility] [address] [address] [address] Deepak Greenfield Sodium [Moles/Vol] 138 mmol/L Normal 136-145 [facility] Comment on above: Performed By: #### I NFLUAB #### [facility] [address] [place] [address] Dr. Deepak Greenfield Urea nitrogen [Mass/Vol] 9.0 mg/dL Normal 7.0-18.0 [facility] Comment on above: Performed By: #### I NFLUAB #### [facility] [address] [place] [address] Dr. Deepak Greenfield Urea nitrogen/Creatinine [Mass ratio] 19.6 mg/mg Normal [facility] Comment on above: Performed By: #### I NFLUAB #### [facility] [address] [place] [address] Dr. Deepak Greenfield AMMONIAon 07-29-2022 Ammonia (P) [Moles/Vol] 69 umol/L Critically high 11-32 [facility] Comment on above: Performed By: #### A MM #### [facility] [address] [place] [address] Dr. Deepak Greenfield CBC AUTO DIFFon 07-29-2022 BASO # 0.0 103/ul Normal 0.0-0.1 [facility] Comment on above: Performed By: #### M G, CMP #### [facility] [address] [place] [address] Dr. Deepak Greenfield Basophils/100 WBC (Bld) 0.2 % Normal 0.2-2.0 [facility] Comment on above: Performed By: #### M G, CMP #### [facility] [address] [place] [address] Dr. Deepak Greenfiedl EO # 0.0 103/ul Normal 0.0-0.7 [facility] Comment on above: Performed By: #### M G, CMP #### [facility] [address] [place] [address] Dr. Deepak Greenfield Eosinophils/100 WBC (Bld) 0.0 % Critically low 0.9-7.0 [facility] Comment on above: Performed By: #### M G, CMP #### [facility] [address] [place] [address] Dr. Deepak Greenfield Erythrocyte distribution width (RBC) [Ratio] 13.2 % Normal 11.0-15.0 [facility] Comment on above: Performed By: #### M G, CMP #### [facility] [address] [place] [address] Dr. Deepak Greenfield Hematocrit (Bld) [Volume fraction] 33.1 % Critically low 42.0-54.0 [facility] Comment on above: Performed By: #### M G, CMP #### [facility] [address] [place] [address] Dr. Deepak Greenfield Hemoglobin (Bld) [Mass/Vol] 10.8 g/dL Critically low 14.0-18.0 [facility] Comment on above: Performed By: #### M G, CMP #### [facility] [address] [place] [address] Dr. Deepak Greenfield IG # 0.04 10e3/ul Critically high 0.00-0.03 [facility] Comment on above: Performed By: #### M G, CMP #### [facility] [address] [place] [address] Dr. Deepak Greenfield IG % 0.5 % Normal 0.0-0.5 [facility] Comment on above: Performed By: #### M G, CMP #### [facility] [address] [place] [address] Dr. Deepak Greenfield LYMPH # 1.1 103/ul Critically low 1.2-3.8 [facility] Comment on above: Performed By: #### M G, CMP #### [facility] [address] [place] [address] Dr. Deepak Greenfield Lymphocytes/100 WBC (Bld) 13.6 % Critically low 20.5-60.0 [facility] Comment on above: Performed By: #### M G, CMP #### [facility] [address] [place] [address] Dr. Deepak Greenfield MANUAL DIFF REQ NO Normal [facility] Comment on above: Performed By: #### M G, CMP #### [facility] [address] [place] [address] Dr. Deepak Greenfield MCH (RBC) [Entitic mass] 32.2 pg Normal 25.9-34.0 [facility] Comment on above: Performed By: #### M G, CMP #### [facility] [address] [place] [address] Dr. Deepak Greenfield MCHC (RBC) [Mass/Vol] 32.6 g/dL Normal 29.9-35.2 [facility] Comment on above: Performed By: #### M G, CMP #### [facility] [address] [place] [address] Dr. Deepak Greenfield MCV (RBC) [Entitic vol] 98.8 fL Critically high 80.0-94.0 [facility] Comment on above: Performed By: #### M G, CMP #### [facility] [address] [place] [address] Dr. Deepak Greenfield MONO # 0.3 103/ul Normal 0.3-0.8 [facility] Comment on above: Performed By: #### M G, CMP #### [facility] [address] [place] [address] Dr. Deepak Greenfield Monocytes/100 WBC (Bld) 3.8 % Normal 1.7-12.0 [facility] Comment on above: Performed By: #### M G, CMP #### [facility] [address] [place] [address] Dr. Deepak Greenfield NEUT # 6.7 103/ul Critically high 1.4-6.5 [facility] Comment on above: Performed By: #### M G, CMP #### [facility] [address] [place] [address] Dr. Deepak Greenfield Neutrophils/100 WBC (Bld) 81.9 % Critically high 43.0-75.0 [facility] Comment on above: Performed By: #### M G, CMP #### [facility] [address] [address] [address] Deepak Greenfield Platelet mean volume (Bld) [Entitic vol] 9.6 fL Normal 9.5-13.5 [facility] Comment on above: Performed By: #### M G, CMP #### [facility] [address] [address] [address] Deepak Greenfield PLT 257 103/ul Normal 150-450 [facility] Comment on above: Performed By: #### M G, CMP #### [facility] [address] [address] [address] Deepak Greenfield RBC 3.35 106/ul Critically low 4.70-6.10 [facility] Comment on above: Performed By: #### M G, CMP #### [facility] [address] [place] [address] Dr. Deepak Greenfield WBC 8.2 103/ul Normal 4.0-11.0 [facility] Comment on above: Performed By: #### M G, CMP #### [facility] [address] [place] [address] Dr. Deepak Greenfield LACTATE/LACTIC ACIDon 2022 Lactate [Moles/Vol] 1.1 mmol/L Normal 0.4-2.0 [facility] Comment on above: Performed By: #### I NFLUAB #### [facility] [address] [place] [address] Dr. Deepak Greenfield PROF CHEM 8 (BAS METB)on Anion gap [Moles/Vol] 9.4 mmol/L Normal [facility] Comment on above: Performed By: #### I NFLUAB #### [facility] [address] [place] [address] Dr. Deepak Greenfield Calcium [Mass/Vol] 8.0 mg/dL Critically low 8.5-10.1 Th [facility] Comment on above: Performed By: #### I NFLUAB #### [facility] [address] [place] [address] Dr. Deepak Greenfield Chloride [Moles/Vol] 105 mmol/L Normal 98-107 [facility] Comment on above: Performed By: #### I NFLUAB #### [facility] [address] [address] [address] Deepak Greenfield CO2 [Moles/Vol] 30.7 mmol/L Normal 21.0-32.0 [facility] Comment on above: Performed By: #### I NFLUAB #### [facility] [address] [address] [address] Deepak Greenfield Creatinine [Mass/Vol] 0.66 mg/dL Critically low 0.70-1.30 [facility] Comment on above: Performed By: #### I NFLUAB #### [facility] [address] [address] [address] Deepak Greenfield EGFR-AF MONTENEGRIN >60 Normal >=60 [facility] Comment on above: Performed By: #### I NFLUAB #### [facility] [address] [place] [address] Dr. Deepak Greenfield EGFR-NON AF MONTENEGRIN >60 Normal >=60 [facility] Comment on above: Performed By: #### I NFLUAB #### [facility] [address] [address] [address] Deepak Greenfield Glucose [Mass/Vol] 177 mg/dL Critically high 74-106 [facility] Comment on above: Performed By: #### I NFLUAB #### [facility] [address] [address] [address] Deepak Greenfield Potassium [Moles/Vol] 4.1 mmol/L Normal 3.5-5.1 [facility] Comment on above: Performed By: #### I NFLUAB #### [facility] [address] [address] [address] Deepak Greenfield Sodium [Moles/Vol] 141 mmol/L Normal 136-145 [facility] Comment on above: Performed By: #### I NFLUAB #### [facility] [address] [address] [address] Deepak Greenfield Urea nitrogen [Mass/Vol] 9.0 mg/dL Normal 7.0-18.0 [facility] Comment on above: Performed By: #### I NFLUAB #### [facility] [address] [place] [address] Dr. Deepak Greenfield Urea nitrogen/Creatinine [Mass ratio] 13.6 mg/mg Normal [facility] Comment on above: Performed By: #### I NFLUAB #### [facility] [address] [place] [address] Dr. Deepak Greenfield AMMONIAon 07-28-2022 Ammonia (P) [Moles/Vol] 68 umol/L Critically high [facility] Comment on above: Performed By: #### B MP #### [facility] [address] [place] [address] Dr. Deepak Greenfield CBC AUTO DIFFon 07-28-2022 BASO # 0.0 103/ul Normal 0.0-0.1 [facility] Comment on above: Performed By: #### C BC #### [facility] [address] [place] [address] Dr. Deepak Greenfield Basophils/100 WBC (Bld) 0.3 % Normal 0.2-2.0 [facility] Comment on above: Performed By: #### C BC #### [facility] [address] [place] [address] Dr. Deepak Greenfield EO # 0.0 103/ul Normal 0.0-0.7 [facility] Comment on above: Performed By: #### C BC #### [facility] [address] [place] [address] Dr. Deepak Greenfield Eosinophils/100 WBC (Bld) 0.0 % Critically low 0.9-7.0 [facility] Comment on above: Performed By: #### C BC #### [facility] [address] [place] [address] Dr. Deepak Greenfield Erythrocyte distribution width (RBC) [Ratio] 13.3 % Normal 11.0-15.0 [facility] Comment on above: Performed By: #### C BC #### [facility] [address] [place] [address] Dr. Deepak Greenfield Hematocrit (Bld) [Volume fraction] 37.0 % Critically low 42.0-54.0 [facility] Comment on above: Performed By: #### C BC #### [facility] [address] [place] [address] Dr. Deepak Greenfield Hemoglobin (Bld) [Mass/Vol] 12.3 g/dL Critically low 14.0-18.0 [facility] Comment on above: Performed By: #### C BC #### [facility] [address] [place] [address] Dr. Deepak Greenfield IG # 0.06 10e3/ul Critically high 0.00-0.03 [facility] Comment on above: Performed By: #### C BC #### [facility] [address] [place] [address] Dr. Deepak Greenfield IG % 0.5 % Normal 0.0-0.5 [facility] Comment on above: Performed By: #### C BC #### [facility] [address] [place] [address] Dr. Deepak Greenfield LYMPH # 2.9 103/ul Normal 1.2-3.8 [facility] Comment on above: Performed By: #### C BC #### [facility] [address] [place] [address] Dr. Deepak Greenfield Lymphocytes/100 WBC (Bld) 23.5 % Normal 20.5-60.0 [facility] Comment on above: Performed By: #### C BC #### [facility] [address] [place] [address] Dr. Deepak Greenfield MANUAL DIFF REQ NO Normal [facility] Comment on above: Performed By: #### C BC #### [facility] [address] [place] [address] Dr. Deepak Greenfield MCH (RBC) [Entitic mass] 32.4 pg Normal 25.9-34.0 [facility] Comment on above: Performed By: #### C BC #### [facility] [address] [place] [address] Dr. Deepak Greenfield MCHC (RBC) [Mass/Vol] 33.2 g/dL Normal 29.9-35.2 [facility] Comment on above: Performed By: #### C BC #### [facility] [address] [address] [address] Deepak Greenfield MCV (RBC) [Entitic vol] 97.4 fL Critically high 80.0-94.0 [facility] Comment on above: Performed By: #### C BC #### [facility] [address] [address] [address] Deepak Greenfield MONO # 1.0 103/ul Critically high 0.3-0.8 [facility] Comment on above: Performed By: #### C BC #### [facility] [address] [address] [address] Deepak Greenfield Monocytes/100 WBC (Bld) 8.0 % Normal 1.7-12.0 [facility] Comment on above: Performed By: #### C BC #### [facility] [address] [address] [address] Deepak Greenfield NEUT # 8.3 103/ul Critically high 1.4-6.5 [facility] Comment on above: Performed By: #### C BC #### [facility] [address] [address] [address] Deepak Greenfield Neutrophils/100 WBC (Bld) 67.7 % Normal 43.0-75.0 [facility] Comment on above: Performed By: #### C BC #### [facility] [address] [address] [address] Deepak Greenfield Platelet mean volume (Bld) [Entitic vol] 9.7 fL Normal 9.5-13.5 [facility] Comment on above: Performed By: #### C BC #### [facility] [address] [address] [address] Deepak Greenfield PLT 325 103/ul Normal 150-450 [facility] Comment on above: Performed By: #### C BC #### [facility] [address] [address] [address] Deepak Greenfield RBC 3.80 106/ul Critically low 4.70-6.10 [facility] Comment on above: Performed By: #### C BC #### [facility] [address] [place] [address] Dr. Deepak Greenfield WBC 12.2 103/ul Critically high 4.0-11.0 [facility] Comment on above: Performed By: #### C BC #### [facility] [address] [place] [address] Dr. Deepak Greenfield CULTURE BLOODon 07-28-2022 Microscopic examination of blood, culture Culture Observations: NO GROWTH AT 5 DAYS. Normal [facility] Comment on above: Performed By: #### B [id number] #### [facility] [address] [place] [address] Dr. Deepak Greenfield Microscopic examination of blood, culture Culture Observations: NO GROWTH AT 5 DAYS. Normal [facility] Comment on above: Performed By: #### C BC #### [facility] [address] [place] [address] Dr. Deepak Greenfield LACTATE/LACTIC ACIDon 2022 Lactate [Moles/Vol] 2.5 mmol/L Critically high 0.4-2.0 [facility] Comment on above: Performed By: #### C VDTBH #### [facility] [address] [place] [address] Dr. Deepak Greenfield PROF 14(COMP METB)on 023 Albumin [Mass/Vol] 3.1 g/dL Critically low 3.4-5.0 [facility] Comment on above: Performed By: #### C BC #### [facility] [address] [place] [address] Dr. Deepak Greenfield Albumin/Globulin [Mass ratio] 0.7 {ratio} Normal [facility] Comment on above: Performed By: #### C BC #### [facility] [address] [place] [address] Dr. Deepak Greenfield ALP [Catalytic activity/Vol] 51 U/L Normal 46-116 [facility] Comment on above: Performed By: #### C BC #### [facility] [address] [place] [address] Dr. Deepak Greenfield ALT [Catalytic activity/Vol] 106 U/L Critically high 16-63 [facility] Comment on above: Performed By: #### C BC #### [facility] [address] [address] [address] Deepak Greenfield Anion gap [Moles/Vol] 14.2 mmol/L Normal [facility] Comment on above: Performed By: #### C BC #### [facility] [address] [address] [address] Deepak Greenfield AST [Catalytic activity/Vol] 81 U/L Critically high 15-37 [facility] Comment on above: Performed By: #### C BC #### [facility] [address] [address] [address] Deepak Greenfield Bilirubin [Mass/Vol] 0.4 mg/dL Normal 0.2-1.0 [facility] Comment on above: Performed By: #### C BC #### [facility] [address] [address] [address] Deepak Greenfield Calcium [Mass/Vol] 8.9 mg/dL Normal 8.5-10.1 [facility] Comment on above: Performed By: #### C BC #### [facility] [address] [address] [address] Deepak Greenfield Chloride [Moles/Vol] 105 mmol/L Normal 98-107 [facility] Comment on above: Performed By: #### C BC #### [facility] [address] [address] [address] Deepak Greenfield CO2 [Moles/Vol] 27.9 mmol/L Normal 21.0-32.0 [facility] Comment on above: Performed By: #### C BC #### [facility] [address] [address] [address] Deepak Greenfield Creatinine [Mass/Vol] 0.77 mg/dL Normal 0.70-1.30 [facility] Comment on above: Performed By: #### C BC #### [facility] [address] [address] [address] Deepak Greenfield EGFR-AF MONTENEGRIN >60 Normal >=60 [facility] Comment on above: Performed By: #### C BC #### [facility] [address] [place] [address] Dr. Deepak Greenfield EGFR-NON AF MONTENEGRIN >60 Normal >=60 [facility] Comment on above: Performed By: #### C BC #### [facility] [address] [address] [address] Deepak Greenfield Globulin (S) [Mass/Vol] 4.3 g/dL Normal [facility] Comment on above: Performed By: #### C BC #### [facility] [address] [address] [address] Deepak Greenfield Glucose [Mass/Vol] 162 mg/dL Critically high 74-106 [facility] Comment on above: Performed By: #### C BC #### [facility] [address] [place] [address] Dr. Deepak Greenfield Potassium [Moles/Vol] 4.1 mmol/L Normal 3.5-5.1 [facility] Comment on above: Performed By: #### C BC #### [facility] [address] [place] [address] Dr. Deepak Greenfield Protein [Mass/Vol] 7.4 g/dL Normal 6.4-8.2 [facility] Comment on above: Performed By: #### C BC #### [facility] [address] [place] [address] Dr. Deepak Greenfield Sodium [Moles/Vol] 143 mmol/L Normal 136-145 [facility] Comment on above: Performed By: #### C BC #### [facility] [address] [place] [address] Dr. Deepak Greenfield Urea nitrogen [Mass/Vol] 12.0 mg/dL Normal 7.0-18.0 [facility] Comment on above: Performed By: #### C BC #### [facility] [address] [place] [address] Dr. Deepak Greenfield Urea nitrogen/Creatinine [Mass ratio] 15.6 mg/mg Normal [facility] Comment on above: Performed By: #### C BC #### [facility] [address] [place] [address] Dr. Deepak Greenfield RESPIRATORY PANEL PLUSon Adenovirus Not detected Normal NOT DETECTED [facility] Comment on above: Performed By: #### B MP #### [facility] [address] [place] [address] Dr. Deepak Ocampo Parapertusis Not detected Normal NOT DETECTED [facility] Comment on above: Performed By: #### B MP #### [facility] [address] [place] [address] Dr. Deepak Ocampo Pertussis Not detected Normal NOT DETECTED [facility] Comment on above: Performed By: #### B MP #### [facility] [address] [place] [address] Dr. Deepak Greenfield Chlamydia Pneumoniae Not detected Normal NOT DETECTED [facility] Comment on above: Performed By: #### B MP #### [facility] [address] [place] [address] Dr. Deepak Greenfield Coronavirus 229E Not detected Normal NOT DETECTED [facility] Comment on above: Performed By: #### B MP #### [facility] [address] [place] [address] Dr. Deepak Greenfield Coronavirus HKU1 Not detected Normal NOT DETECTED [facility] Comment on above: Performed By: #### B MP #### [facility] [address] [place] [address] Dr. Deepak Greenfield Coronavirus NL63 Not detected Normal NOT DETECTED [facility] Comment on above: Performed By: #### B MP #### [facility] [address] [place] [address] Dr. Deepak Greenfield Coronavirus OC43 Not detected Normal NOT DETECTED [facility] Comment on above: Performed By: #### B MP #### [facility] [address] [place] [address] Dr. Deepak Greenfield Influenza A H1 Not detected Normal NOT DETECTED [facility] Comment on above: Performed By: #### B MP #### [facility] [address] [place] [address] Dr. Deepak Greenfield Influenza A H1 2009 Not detected Normal NOT DETECTED [facility] Comment on above: Performed By: #### B MP #### [facility] [address] [address] [address] Deepak Greenfield Influenza A H3 Not detected Normal NOT DETECTED [facility] Comment on above: Performed By: #### B MP #### [facility] [address] [address] [address] Deepak Greenfield Influenza B Not detected Normal NOT DETECTED [facility] Comment on above: Performed By: #### B MP #### [facility] [address] [address] [address] Deepak Greenfield Metapneumovirus Detected Abnormal NOT DETECTED [facility] Comment on above: Performed By: #### B MP #### [facility] [address] [place] [address] Dr. Deepak Greenfield Mycoplas. Pneumoniae Not detected Normal NOT DETECTED [facility] Comment on above: Performed By: #### B MP #### [facility] [address] [address] [address] Deepak Greenfield Parainfluenza 1 Not detected Normal NOT DETECTED [facility] Comment on above: Performed By: #### B MP #### [facility] [address] [address] [address] Deepak Greenfield Parainfluenza 2 Not detected Normal NOT DETECTED [facility] Comment on above: Performed By: #### B MP #### [facility] [address] [address] [address] Deepak Greenfield Parainfluenza 3 Not detected Normal NOT DETECTED [facility] Comment on above: Performed By: #### B MP #### [facility] [address] [address] [address] Deepak Greenfield Parainfluenza 4 Not detected Normal NOT DETECTED [facility] Comment on above: Performed By: #### B MP #### [facility] [address] [address] [address] Deepak Greenfield Rhino/Enterovirus Not detected Normal NOT DETECTED [facility] Comment on above: Performed By: #### B MP #### [facility] [address] [place] [address] Dr. Deepak Greenfield RP2 Header 1 RESPIRATORY PANEL: VIRUSES Normal [facility] Comment on above: Performed By: #### B MP #### [facility] [address] [place] [address] Dr. Deepak Greenfield RP2 Header 2 RESPIRATORY PANEL: BACTERIA Normal [facility] Comment on above: Performed By: #### B MP #### [facility] [address] [place] [address] Dr. Deepak Greenfield RSV Not detected Normal NOT DETECTED [facility] Comment on above: Performed By: #### B MP #### [facility] [address] [place] [address] Dr. Deepak Greenfield SARS-CoV-2 (COVID-19) RNA CINDY+probe Ql (Unsp spec) Not detected Normal NOT DETECTED [facility] Comment on above: Performed By: #### B MP #### [facility] [address] [place] [address] Dr. Deepak Greenfield XR CHEST 1 Von [...] Akua PEREZ Date: 2022-07-28 20:23 Normal [facility] AMMONIAon 07-27-2022 Ammonia (P) [Moles/Vol] 76 umol/L Critically high 11-32 [facility] Comment on above: Performed By: #### M G, CMP #### [facility] [address] [place] [address] Dr. Deepak Greenfield CBC W MANUAL DIFFon 07-28-19 23 ATYPICAL LYMPH # Normal [facility] Comment on above: Performed By: #### M G, CMP #### [facility] [address] [place] [address] Dr. Deepak Greenfield ATYPICAL LYMPH % Normal [facility] Comment on above: Performed By: #### M G, CMP #### [facility] [address] [place] [address] Dr. Deepak Greenfield BAND # 0.4 103/ul Critically high 0.0-0.3 [facility] Comment on above: Performed By: #### M G, CMP #### [facility] [address] [place] [address] Dr. Deepak Greenfield BAND % 4 % Normal 0-5 [facility] Comment on above: Performed By: #### M G, CMP #### [facility] [address] [place] [address] Dr. Deepak Greenfield BASOM # 0.00 103/ul Normal 0.00-0.10 [facility] Comment on above: Performed By: #### M Lacy, CMP #### [facility] [address] [place] [address] Dr. Deepak Greenfield BASOM % 0.0 % Critically low 0.2-2.0 [facility] Comment on above: Performed By: #### M G, CMP #### [facility] [address] [place] [address] Dr. Deepak Greenfield BLAST # Normal [facility] Comment on above: Performed By: #### M G, CMP #### [facility] [address] [place] [address] Dr. Deepak Greenfield BLAST % Normal [facility] Comment on above: Performed By: #### M G, CMP #### [facility] [address] [place] [address] Dr. Deepak Greenfield CORRECTED WBC Normal 4.0-11.[address] [facility] Comment on above: Performed By: #### M G, CMP #### [facility] [address] [address] [address] Deepak Greenfield EOS # 0.00 103/ul Normal 0.00-0.70 [facility] Comment on above: Performed By: #### M G, CMP #### [facility] [address] [address] [address] Deepak Greenfield EOS% 0.0 % Critically low 0.9-7.0 [facility] Comment on above: Performed By: #### M G, CMP #### [facility] [address] [address] [address] Deepak Greenfield HCT 29.6 % Critically low 42.0-54.0 [facility] Comment on above: Performed By: #### M G, CMP #### [facility] [address] [address] [address] Deepak Greenfield HGB 10.4 g/dl Critically low 14.0-18.0 [facility] Comment on above: Performed By: #### M G, CMP #### [facility] [address] [address] [address] Deepak Greenfield LYMPHM # 0.71 103/ul Critically low 1.20-3.80 [facility] Comment on above: Performed By: #### M G, CMP #### [facility] [address] [address] [address] Deepak Greenfield LYMPHM% 8.0 % Critically low 20.5-60.0 [facility] Comment on above: Performed By: #### M G, CMP #### [facility] [address] [address] [address] Deepak Greenfield MCH 33.0 pg Normal 25.9-34.0 [facility] Comment on above: Performed By: #### M G, CMP #### [facility] [address] [address] [address] Deepak Greenfield MCHC 35.1 g/dl Normal 29.9-35.2 [facility] Comment on above: Performed By: #### M G, CMP #### [facility] [address] [address] [address] Deepak Greenfield MCV 94.0 fL Normal 80.0-94.0 [facility] Comment on above: Performed By: #### M G, CMP #### [facility] [address] [place] [address] Dr. Deepak Greenfield METAMYELOCYTE # Normal [facility] Comment on above: Performed By: #### M G, CMP #### [facility] [address] [place] [address] Dr. Deepak Greenfield METAMYELOCYTE % Normal [facility] Comment on above: Performed By: #### M G, CMP #### [facility] [address] [place] [address] Dr. Deepak Greenfield MONOM# 0.71 103/ul Normal 0.30-0.80 [facility] Comment on above: Performed By: #### M G, CMP #### [facility] [address] [place] [address] Dr. Deepak Greenfield MONOM% 8.0 % Normal 1.7-12.0 [facility] Comment on above: Performed By: #### M G, CMP #### [facility] [address] [place] [address] Dr. Deepak Greenfield MPV 9.6 fL Normal 9.5-13.5 [facility] Comment on above: Performed By: #### M G, CMP #### [facility] [address] [place] [address] Dr. Deepak Greenfield MYELOCYTE # Normal [facility] Comment on above: Performed By: #### M G, CMP #### [facility] [address] [place] [address] Dr. Deepak Greenfield MYELOCYTE % Normal [facility] Comment on above: Performed By: #### M G, CMP #### [facility] [address] [place] [address] Dr. Deepak Greenfield NRBC Normal [facility] Comment on above: Performed By: #### M G, CMP #### [facility] [address] [place] [address] Dr. Deepak Greenfield PLT 267 103/ul Normal 150-450 [facility] Comment on above: Performed By: #### M G, CMP #### [facility] [address] [place] [address] Dr. Deepak Greenfield RBC 3.15 106/ul Critically low 4.70-6.10 [facility] Comment on above: Performed By: #### M G, CMP #### [facility] [address] [place] [address] Dr. Deepak Greenfield RDW 12.9 % Normal 11.0-15.0 [facility] Comment on above: Performed By: #### M G, CMP #### [facility] [address] [place] [address] Dr. Deepak Greenfield SEG # 7.12 103/ul Critically high 1.40-6.50 [facility] Comment on above: Performed By: #### M G, CMP #### [facility] [address] [place] [address] Dr. Deepak Greenfield SEG % 80.0 % Critically high 43.0-75.0 [facility] Comment on above: Performed By: #### M G, CMP #### [facility] [address] [place] [address] Dr. Deepak Greenfield WBC 8.9 103/ul Normal 4.0-11.0 [facility] Comment on above: Performed By: #### M G, CMP #### [facility] [address] [place] [address] Dr. Deepak Greenfield PROF CHEM 8 (BAS METB)on Anion gap [Moles/Vol] 12.4 mmol/L Normal [facility] Comment on above: Performed By: #### C BC #### [facility] [address] [place] [address] Dr. Deepak Greenfield Calcium [Mass/Vol] 8.2 mg/dL Critically low 8.5-10.1 [facility] Comment on above: Performed By: #### C BC #### [facility] [address] [place] [address] Dr. Deepak Greenfield Chloride [Moles/Vol] 101 mmol/L Normal 98-107 [facility] Comment on above: Performed By: #### C BC #### [facility] [address] [address] [address] Deepak Greenfield CO2 [Moles/Vol] 25.0 mmol/L Normal 21.0-32.0 [facility] Comment on above: Performed By: #### C BC #### [facility] [address] [address] [address] Deepak Greenfield Creatinine [Mass/Vol] 0.53 mg/dL Critically low 0.70-1.30 [facility] Comment on above: Performed By: #### C BC #### [facility] [address] [place] [address] Dr. Deepak Greenfield EGFR-AF MONTENEGRIN >60 Normal >=60 [facility] Comment on above: Performed By: #### C BC #### [facility] [address] [place] [address] Dr. Deepak Greenfield EGFR-NON AF MONTENEGRIN >60 Normal >=60 [facility] Comment on above: Performed By: #### C BC #### [facility] [address] [address] [address] Deepak Greenfield Glucose [Mass/Vol] 161 mg/dL Critically high 74-106 [facility] Comment on above: Performed By: #### C BC #### [facility] [address] [address] [address] Deepak Greenfield Potassium [Moles/Vol] 4.4 mmol/L Normal 3.5-5.1 [facility] Comment on above: Performed By: #### C BC #### [facility] [address] [address] [address] Deepak Greenfield Sodium [Moles/Vol] 134 mmol/L Critically low 136-145 [facility] Comment on above: Performed By: #### C BC #### [facility] [address] [place] [address] Dr. Deepak Greenfield Urea nitrogen [Mass/Vol] 13.0 mg/dL Normal 7.0-18.0 [facility] Comment on above: Performed By: #### C BC #### [facility] [address] [place] [address] Dr. Deepak Gerenfield Urea nitrogen/Creatinine [Mass ratio] 24.5 mg/mg Normal [facility] Comment on above: Performed By: #### C BC #### [facility] [address] [place] [address] Dr. Deepak Greenfield AMMONIAon 07-26-2022 Ammonia (P) [Moles/Vol] 56 umol/L Critically high 11-32 [facility] Comment on above: Performed By: #### M G, CMP #### [facility] [address] [place] [address] Dr. Deepak Greenfield CARDIAC BEATRIS ADMITon 023 CK [Catalytic activity/Vol] 83 U/L Normal 39-308 [facility] Comment on above: Performed By: #### B MP #### [facility] [address] [place] [address] Dr. Deepak Greenfield CK.MB [Mass/Vol] 0.86 ng/mL Normal <=3.60 [facility] Comment on above: Performed By: #### B MP #### [facility] [address] [place] [address] Dr. Deepak Greenfield HSTROP 7.4 pg/mL Normal 4.0-76.1 [facility] Comment on above: Result Comment: CUT- OFF POINTS HAVE BEEN ESTABLISHED BASED ON THE FOURTH UNIVERSAL DEFINITIONS OF MYOCARDIAL INFARCTION. THE UPPER REFERENCE LIMIT (URL) OF TROPONIN, DEFINED THE 99TH PERCENTILE OF cTnI DISTRIBUTION IN A REFERENCE POPULATION, HAS BEEN CONFIRMED THE DECISION THRESHOLD FOR AK DIAGNOSIS. Performed By: #### B MP #### [facility] [address] [place] [address] Dr. Deepak Greenfield VALE 46 ng/mL Normal 16-96 [facility] Comment on above: Performed By: #### B MP #### [facility] [address] [place] [address] Dr. Deepak Greenfield CBC AUTO DIFFon 07-26-2022 BASO # 0.1 103/ul Normal 0.0-0.1 [facility] Comment on above: Performed By: #### M G, CMP #### [facility] [address] [place] [address] Dr. Deepak Greenfield Basophils/100 WBC (Bld) 0.5 % Normal 0.2-2.0 [facility] Comment on above: Performed By: #### M G, CMP #### [facility] [address] [place] [address] Dr. Deepak Greenfield EO # 0.2 103/ul Normal 0.0-0.7 [facility] Comment on above: Performed By: #### M G, CMP #### [facility] [address] [place] [address] Dr. Deepak Greenfield Eosinophils/100 WBC (Bld) 2.1 % Normal 0.9-7.0 [facility] Comment on above: Performed By: #### M G, CMP #### [facility] [address] [place] [address] Dr. Deepak Greenfield Erythrocyte distribution width (RBC) [Ratio] 13.2 % Normal 11.0-15.0 [facility] Comment on above: Performed By: #### M G, CMP #### [facility] [address] [place] [address] Dr. Deepak Greenfield Hematocrit (Bld) [Volume fraction] 36.7 % Critically low 42.0-54.0 [facility] Comment on above: Performed By: #### M G, CMP #### [facility] [address] [place] [address] Dr. Deepak Greenfield Hemoglobin (Bld) [Mass/Vol] 12.4 g/dL Critically low 14.0-18.0 [facility] Comment on above: Performed By: #### M G, CMP #### [facility] [address] [place] [address] Dr. Deepak Greenfield IG # 0.04 10e3/ul Critically high 0.00-0.03 [facility] Comment on above: Performed By: #### M G, CMP #### [facility] [address] [place] [address] Dr. Deepak Greenfield IG % 0.4 % Normal 0.0-0.5 [facility] Comment on above: Performed By: #### M G, CMP #### [facility] [address] [place] [address] Dr. Deepak Greenfield LYMPH # 1.7 103/ul Normal 1.2-3.8 [facility] Comment on above: Performed By: #### M G, CMP #### [facility] [address] [place] [address] Dr. Deepak Greenfield Lymphocytes/100 WBC (Bld) 15.6 % Critically low 20.5-60.0 [facility] Comment on above: Performed By: #### M G, CMP #### [facility] [address] [place] [address] Dr. Deepak Greenfield MANUAL DIFF REQ NO Normal [facility] Comment on above: Performed By: #### M G, CMP #### [facility] [address] [place] [address] Dr. Deepak Greenfield MCH (RBC) [Entitic mass] 32.5 pg Normal 25.9-34.0 [facility] Comment on above: Performed By: #### M G, CMP #### [facility] [address] [place] [address] Dr. Deepak Greenfield MCHC (RBC) [Mass/Vol] 33.8 g/dL Normal 29.9-35.2 [facility] Comment on above: Performed By: #### M G, CMP #### [facility] [address] [place] [address] Dr. Deepak Greenfield MCV (RBC) [Entitic vol] 96.3 fL Critically high 80.0-94.0 [facility] Comment on above: Performed By: #### M G, CMP #### [facility] [address] [place] [address] Dr. Deepak Greenfield MONO # 1.4 103/ul Critically high 0.3-0.8 [facility] Comment on above: Performed By: #### M G, CMP #### [facility] [address] [place] [address] Dr. Deepak Greenfield Monocytes/100 WBC (Bld) 12.8 % Critically high 1.7-12.0 [facility] Comment on above: Performed By: #### M G, CMP #### [facility] [address] [place] [address] Dr. Deepak Greenfield NEUT # 7.4 103/ul Critically high 1.4-6.5 [facility] Comment on above: Performed By: #### M G, CMP #### [facility] [address] [place] [address] Dr. Deepak Greenfield Neutrophils/100 WBC (Bld) 68.6 % Normal 43.0-75.0 [facility] Comment on above: Performed By: #### Karishma G, CMP #### [facility] [address] [place] [address] Dr. Deepak Greenfield Platelet mean volume (Bld) [Entitic vol] 9.5 fL Normal 9.5-13.5 [facility] Comment on above: Performed By: #### Karishma Bajwa, CMP #### [facility] [address] [place] [address] Dr. Deepak Greenfield PLT 314 103/ul Normal 150-450 [facility] Comment on above: Performed By: #### Karishma Bajwa, CMP #### [facility] [address] [place] [address] Dr. Deepak Greenfield RBC 3.81 106/ul Critically low 4.70-6.10 [facility] Comment on above: Performed By: #### Karishma Bajwa, CMP #### [facility] [address] [place] [address] Dr. Deepak Greenfield WBC 10.8 103/ul Normal 4.0-11.0 [facility] Comment on above: Performed By: #### Karishma G, CMP #### [facility] [address] [place] [address] Dr. Deepak Greenfield [facility]on SARS-CoV-2 (COVID-19) RNA CINDY+probe Ql (Unsp spec) Not detected Normal NOT DETECTED [facility] Comment on above: Result Comment: [...] for this test is supported by the [place] of [employer] and Human Service's declaration that [...] longer be used). Performed By: #### C VDTB #### [facility] [address] [place] [address] Dr. Deepak Greenfield INFLUENZA A AND B AGon 07-26 [facility] SEE BELOW Normal [facility] Comment on above: Result Comment: Nega tive for Flu A protein angiten. Infection due to Flu A cannot be ruled out. Flu A angiten in the sample may be below the detection limit of the test. Performed By: #### I NFLUAB #### [facility] [address] [place] [address] Dr. Deepak Greenfield [facility]OW Normal [facility] Comment on above: Result Comment: Nega tive for Flu B protein antigen. Infection due to Flu B cannot be ruled out. Flu B antigen in the sample may be below the detection limit of the test. Performed By: #### I NFLUAB #### [facility] [address] [place] [address] Dr. Deepak Greenfield INFLUENZA A AG Negative Normal NEGATIVE SEE COMMENT [facility] Comment on above: Performed By: #### I NFLUAB #### [facility] [address] [place] [address] Dr. Deepak Greenfield INFLUENZA B AG Negative Normal NEGATIVE SEE COMMENT [facility] Comment on above: Performed By: #### I NFLUAB #### [facility] [address] [place] [address] Dr. Deepak Greenfield LACTATE/LACTIC ACIDon 2022 Lactate [Moles/Vol] 1.2 mmol/L Normal 0.4-2.0 [facility] Comment on above: Performed By: #### M G, CMP #### [facility] [address] [place] [address] Dr. Deepak Greenfield PROF 14(COMP METB)on 023 Albumin [Mass/Vol] 3.3 g/dL Critically low 3.4-5.0 [facility] Comment on above: Performed By: #### B MP #### [facility] [address] [place] [address] Dr. Deepak Greenfield Albumin/Globulin [Mass ratio] 0.8 {ratio} Normal [facility] Comment on above: Performed By: #### B MP #### [facility] [address] [place] [address] Dr. Deepak Greenfield ALP [Catalytic activity/Vol] 45 U/L Critically low 46-116 [facility] Comment on above: Performed By: #### B MP #### [facility] [address] [place] [address] Dr. Deepak Greenfield ALT [Catalytic activity/Vol] 114 U/L Critically high 16-63 [facility] Comment on above: Performed By: #### B MP #### [facility] [address] [place] [address] Dr. Deepak Greenfield Anion gap [Moles/Vol] 14.5 mmol/L Normal [facility] Comment on above: Performed By: #### B MP #### [facility] [address] [place] [address] Dr. Deepak Greenfield AST [Catalytic activity/Vol] 71 U/L Critically high 15-37 [facility] Comment on above: Performed By: #### B MP #### [facility] [address] [place] [address] Dr. Deepak Greenfield Bilirubin [Mass/Vol] 0.7 mg/dL Normal 0.2-1.0 [facility] Comment on above: Performed By: #### B MP #### [facility] [address] [address] [address] Deepak Greenfield Calcium [Mass/Vol] 9.1 mg/dL Normal 8.5-10.1 [facility] Comment on above: Performed By: #### B MP #### [facility] [address] [address] [address] Deepak Greenfield Chloride [Moles/Vol] 98 mmol/L Normal 98-107 [facility] Comment on above: Performed By: #### B MP #### [facility] [address] [address] [address] Deepak Greenfield CO2 [Moles/Vol] 27.4 mmol/L Normal 21.0-32.0 [facility] Comment on above: Performed By: #### B MP #### [facility] [address] [place] [address] Dr. Deepak Greenfield Creatinine [Mass/Vol] 0.65 mg/dL Critically low 0.70-1.30 [facility] Comment on above: Performed By: #### B MP #### [facility] [address] [address] [address] Deepak Greenfield EGFR-AF MONTENEGRIN >60 Normal >=60 [facility] Comment on above: Performed By: #### B MP #### [facility] [address] [place] [address] Dr. Deepak Greenfield EGFR-NON AF MONTENEGRIN >60 Normal >=60 [facility] Comment on above: Performed By: #### B MP #### [facility] [address] [place] [address] Dr. Deepak Greenfield Globulin (S) [Mass/Vol] 4.2 g/dL Normal [facility] Comment on above: Performed By: #### B MP #### [facility] [address] [place] [address] Dr. Deepak Greenfield Glucose [Mass/Vol] 105 mg/dL Normal 74-106 [facility] Comment on above: Performed By: #### B MP #### [facility] [address] [place] [address] Dr. Deepak Greenfield Potassium [Moles/Vol] 3.9 mmol/L Normal 3.5-5.1 [facility] Comment on above: Performed By: #### B MP #### [facility] [address] [address] [address] Deepak Greenfield Protein [Mass/Vol] 7.5 g/dL Normal 6.4-8.2 [facility] Comment on above: Performed By: #### B MP #### [facility] [address] [address] [address] Deepak Greenfield Sodium [Moles/Vol] 136 mmol/L Normal 136-145 [facility] Comment on above: Performed By: #### B MP #### [facility] [address] [address] [address] Deepak Greenfield Urea nitrogen [Mass/Vol] 13.0 mg/dL Normal 7.0-18.0 [facility] Comment on above: Performed By: #### B MP #### [facility] [address] [address] [address] Deepak Greenfield Urea nitrogen/Creatinine [Mass ratio] 20.0 mg/mg Normal [facility] Comment on above: Performed By: #### B MP #### [facility] [address] [address] [address] Deepak Greenfield XR CHEST 1 Von [...] by: ANICETO GARCIA Date: 2022-07-26 12:27 Normal [facility] Consent for Treatmenton Consent for Treatment [id number] .[id number]:127 Normal [facility] Physician Orderon 07-23-2022 Physician Order [id number]# 1.00CD:127 Normal [facility] XR Adult Swallowing Function w/ Videoon [...] mGy = 11.70 DAP = 270.92 Normal [facility] AMMONIAon 06-03-2022 Ammonia (P) [Moles/Vol] 112 umol/L Critically high [facility] Comment on above: Performed By: #### A MM #### [facility] [address] [place] [address] Dr. Deepak Greenfield DEPAKENE/ VALPROIC ACIDon DEPAKENE 94.0 ug/ml Normal 50.0-100.0 [facility] Comment on above: Performed By: #### C BC #### [facility] [address] [place] [address] Dr. Deepak Greenfield LIVER PROFILEon 06-03-2022 Albumin [Mass/Vol] 3.6 g/dL Normal 3.4-5.0 [facility] Comment on above: Performed By: #### C BC #### [facility] [address] [place] [address] Dr. Deepak Greenfield Albumin/Globulin [Mass ratio] 0.9 {ratio} Normal [facility] Comment on above: Performed By: #### C BC #### [facility] [address] [place] [address] Dr. Deepak Greenfield ALP [Catalytic activity/Vol] 55 U/L Normal 46-116 [facility] Comment on above: Performed By: #### C BC #### [facility] [address] [place] [address] Dr. Deepak Greenfield ALT [Catalytic activity/Vol] 76 U/L Critically high 16-63 [facility] Comment on above: Performed By: #### C BC #### [facility] [address] [place] [address] Dr. Deepak Greenfield AST [Catalytic activity/Vol] 51 U/L Critically high 15-37 [facility] Comment on above: Performed By: #### C BC #### [facility] [address] [place] [address] Dr. Deepak Greenfield BILI, CONJUGATED 0.1 mg/dL Normal 0.0-0.2 [facility] Comment on above: Performed By: #### C BC #### [facility] [address] [place] [address] Dr. Deepak Greenfield Bilirubin [Mass/Vol] 0.4 mg/dL Normal 0.2-1.0 [facility] Comment on above: Performed By: #### C BC #### [facility] [address] [place] [address] Dr. Deepak Greenfield Globulin (S) [Mass/Vol] 4.1 g/dL Normal [facility] Comment on above: Performed By: #### C BC #### [facility] [address] [place] [address] Dr. Deepak Greenfield Protein [Mass/Vol] 7.7 g/dL Normal 6.4-8.2 [facility] Comment on above: Performed By: #### C BC #### [facility] [address] [place] [address] Dr. Deepak Greenfield AMMONIAon 04-22-2022 Ammonia (P) [Moles/Vol] 108 umol/L Critically high 11-32 [facility] Comment on above: Performed By: #### B MP #### [facility] [address] [place] [address] Dr. Deepak Greenfield CBC AUTO DIFFon 04-22-2022 BASO # 0.0 103/ul Normal 0.0-0.1 [facility] Comment on above: Performed By: #### C BC #### [facility] [address] [place] [address] Dr. Deepak Greenfield Basophils/100 WBC (Bld) 0.5 % Normal 0.2-2.0 [facility] Comment on above: Performed By: #### C BC #### [facility] [address] [place] [address] Dr. Deepak Greenfield EO # 0.1 103/ul Normal 0.0-0.7 [facility] Comment on above: Performed By: #### C BC #### [facility] [address] [place] [address] Dr. Deepak Greenfield Eosinophils/100 WBC (Bld) 1.4 % Normal 0.9-7.0 [facility] Comment on above: Performed By: #### C BC #### [facility] [address] [place] [address] Dr. Deepak Greenfield Erythrocyte distribution width (RBC) [Ratio] 14.2 % Normal 11.0-15.0 [facility] Comment on above: Performed By: #### C BC #### [facility] [address] [place] [address] Dr. Deepak Greenfield Hematocrit (Bld) [Volume fraction] 37.0 % Critically low 42.0-54.0 [facility] Comment on above: Performed By: #### C BC #### [facility] [address] [place] [address] Dr. Deepak Greenfield Hemoglobin (Bld) [Mass/Vol] 12.3 g/dL Critically low 14.0-18.0 [facility] Comment on above: Performed By: #### C BC #### [facility] [address] [place] [address] Dr. Deepak Greenfield IG # 0.00 10e3/ul Normal 0.00-0.03 [facility] Comment on above: Performed By: #### C BC #### [facility] [address] [place] [address] Dr. Deepak Greenfield IG % 0.0 % Normal 0.0-0.5 [facility] Comment on above: Performed By: #### C BC #### [facility] [address] [place] [address] Dr. Deepak Greenfield LYMPH # 3.3 103/ul Normal 1.2-3.8 [facility] Comment on above: Performed By: #### C BC #### [facility] [address] [place] [address] Dr. Deepak Greenfield Lymphocytes/100 WBC (Bld) 51.5 % Normal 20.5-60.0 [facility] Comment on above: Performed By: #### C BC #### [facility] [address] [place] [address] Dr. Deepak Greenfield MANUAL DIFF REQ NO Normal [facility] Comment on above: Performed By: #### C BC #### [facility] [address] [place] [address] Dr. Deepak Greenfield MCH (RBC) [Entitic mass] 32.2 pg Normal 25.9-34.0 [facility] Comment on above: Performed By: #### C BC #### [facility] [address] [place] [address] Dr. Deepak Greenfield MCHC (RBC) [Mass/Vol] 33.2 g/dL Normal 29.9-35.2 [facility] Comment on above: Performed By: #### C BC #### [facility] [address] [place] [address] Dr. Deepak Greenfield MCV (RBC) [Entitic vol] 96.9 fL Critically high 80.0-94.0 [facility] Comment on above: Performed By: #### C BC #### [facility] [address] [place] [address] Dr. Deepak Greenfield MONO # 0.6 103/ul Normal 0.3-0.8 [facility] Comment on above: Performed By: #### C BC #### [facility] [address] [place] [address] Dr. Deepak Greenfield Monocytes/100 WBC (Bld) 9.7 % Normal 1.7-12.0 [facility] Comment on above: Performed By: #### C BC #### [facility] [address] [place] [address] Dr. Deepak Greenfield NEUT # 2.4 103/ul Normal 1.4-6.5 [facility] Comment on above: Performed By: #### C BC #### [facility] [address] [place] [address] Dr. Deepak Greenfield Neutrophils/100 WBC (Bld) 36.9 % Critically low 43.0-75.0 [facility] Comment on above: Performed By: #### C BC #### [facility] [address] [place] [address] Dr. Deepak Greenfield Platelet mean volume (Bld) [Entitic vol] 10.2 fL Normal 9.5-13.5 [facility] Comment on above: Performed By: #### C BC #### [facility] [address] [place] [address] Dr. Deepak Greenfield PLT 248 103/ul Normal 150-450 [facility] Comment on above: Performed By: #### C BC #### [facility] [address] [place], [place] [id number] Dr. Deepak Greenfield RBC 3.82 106/ul Critically low 4.70-6.10 [facility] Comment on above: Performed By: #### C BC #### [facility] [address] [place] [address] Dr. Deepak Greenfield WBC 6.5 103/ul Normal 4.0-11.0 [facility] Comment on above: Performed By: #### C BC #### [facility] [address] [place] [address] Dr. Deepak Greenfield FERRITINon 04-22-2022 Ferritin [Mass/Vol] 152.0 ng/mL Normal 26.0-388.0 [facility] Comment on above: Performed By: #### M G, CMP #### [facility] [address] [place] [address] Dr. Deepak Greenfield IRONon 04-22-2022 Iron [Mass/Vol] 136.0 ug/dL Normal 65.0-175.0 [facility] Comment on above: Performed By: #### M G, CMP #### [facility] [address] [place] [address] Dr. Deepak Greenfield MAGNESIUMon 04-22-2022 Magnesium [Mass/Vol] 1.6 mg/dL Critically low 1.8-2.4 [facility] Comment on above: Performed By: #### I NFLUAB #### [facility] [address] [place] [address] Dr. Deepak Greenfield VITAMIN B12on 04-22-2022 Cobalamin (Vitamin B12) [Mass/Vol] 545.0 pg/mL Normal 193.0-986.0 [facility] Comment on above: Performed By: #### M G, CMP #### [facility] [address] [place] [address] Dr. Deepak Greenfield CBC AUTO DIFFon 03-19-2022 BASO # 0.0 103/ul Normal 0.0-0.1 [facility] Comment on above: Performed By: #### M G, CMP #### [facility] [address] [place] [address] Dr. Deepak Greenfield Basophils/100 WBC (Bld) 0.5 % Normal 0.2-2.0 [facility] Comment on above: Performed By: #### M G, CMP #### [facility] [address] [place] [address] Dr. Deepak Greenfield EO # 0.2 103/ul Normal 0.0-0.7 [facility] Comment on above: Performed By: #### M G, CMP #### [facility] [address] [place] [address] Dr. Deepak Greenfield Eosinophils/100 WBC (Bld) 2.0 % Normal 0.9-7.0 [facility] Comment on above: Performed By: #### M G, CMP #### [facility] [address] [place] [address] Dr. Deepak Greenfield Erythrocyte distribution width (RBC) [Ratio] 13.5 % Normal 11.0-15.0 [facility] Comment on above: Performed By: #### M G, CMP #### [facility] [address] [place] [address] Dr. Deepak Greenfield Hematocrit (Bld) [Volume fraction] 38.5 % Critically low 42.0-54.0 [facility] Comment on above: Performed By: #### M G, CMP #### [facility] [address] [place] [address] Dr. Deepak Greenfield Hemoglobin (Bld) [Mass/Vol] 12.6 g/dL Critically low 14.0-18.0 [facility] Comment on above: Performed By: #### M G, CMP #### [facility] [address] [place] [address] Dr. Deepak Greenfield IG # 0.02 10e3/ul Normal 0.00-0.03 [facility] Comment on above: Performed By: #### M G, CMP #### [facility] [address] [place] [address] Dr. Deepak Greenfield IG % 0.2 % Normal 0.0-0.5 [facility] Comment on above: Performed By: #### M G, CMP #### [facility] [address] [place] [address] Dr. Deepak Greenfield LYMPH # 3.1 103/ul Normal 1.2-3.8 [facility] Comment on above: Performed By: #### M G, CMP #### [facility] [address] [place] [address] Dr. Deepak Greenfield Lymphocytes/100 WBC (Bld) 36.2 % Normal 20.5-60.0 [facility] Comment on above: Performed By: #### M G, CMP #### [facility] [address] [place] [address] Dr. Deepak Greenfield MANUAL DIFF REQ NO Normal [facility] Comment on above: Performed By: #### M G, CMP #### [facility] [address] [place] [address] Dr. Deepak Greenfield MCH (RBC) [Entitic mass] 32.1 pg Normal 25.9-34.0 [facility] Comment on above: Performed By: #### M G, CMP #### [facility] [address] [place] [address] Dr. Deepak Greenfield MCHC (RBC) [Mass/Vol] 32.7 g/dL Normal 29.9-35.2 [facility] Comment on above: Performed By: #### M G, CMP #### [facility] [address] [place] [address] Dr. Deepak Greenfield MCV (RBC) [Entitic vol] 98.0 fL Critically high 80.0-94.0 [facility] Comment on above: Performed By: #### M G, CMP #### [facility] [address] [place] [address] Dr. Deepak Greenfield MONO # 0.9 103/ul Critically high 0.3-0.8 [facility] Comment on above: Performed By: #### M G, CMP #### [facility] [address] [place] [address] Dr. Deepak Greenfield Monocytes/100 WBC (Bld) 10.6 % Normal 1.7-12.0 [facility] Comment on above: Performed By: #### M G, CMP #### [facility] [address] [place] [address] Dr. Deepak Greenfield NEUT # 4.3 103/ul Normal 1.4-6.5 [facility] Comment on above: Performed By: #### M G, CMP #### [facility] [address] [place] [address] Dr. Deepak Greenfield Neutrophils/100 WBC (Bld) 50.5 % Normal 43.0-75.0 [facility] Comment on above: Performed By: #### M Lacy, CMP #### [facility] [address] [address] [address] Deepak Greenfield Platelet mean volume (Bld) [Entitic vol] 9.9 fL Normal 9.5-13.5 [facility] Comment on above: Performed By: #### Karishma G, CMP #### [facility] [address] [address] [address] Deepak Greenfield PLT 263 103/ul Normal 150-450 [facility] Comment on above: Performed By: #### Karishma G, CMP #### [facility] [address] [place] [address] Dr. Deepak Greenfield RBC 3.93 106/ul Critically low 4.70-6.10 [facility] Comment on above: Performed By: #### Karishma Bajwa, CMP #### [facility] [address] [address] [address] Deepak Greenfield WBC 8.6 103/ul Normal 4.0-11.0 [facility] Comment on above: Performed By: #### Karishma Bajwa, CMP #### [facility] [address] [place] [address] Dr. Deepak Greenfield MAGNESIUMon 03-19-2022 Magnesium [Mass/Vol] 1.5 mg/dL Critically low 1.8-2.4 [facility] Comment on above: Performed By: #### Karishma Bajwa, CMP #### [facility] [address] [place] [address] Dr. Deepak Greenfield PROF 14(COMP METB)on 022 Albumin [Mass/Vol] 3.4 g/dL Normal 3.4-5.0 [facility] Comment on above: Performed By: #### Karishma Bajwa, CMP #### [facility] [address] [place] [address] Dr. Deepak Greenfield Albumin/Globulin [Mass ratio] 0.9 {ratio} Normal [facility] Comment on above: Performed By: #### M G, CMP #### [facility] [address] [address] [address] Deepak Greenfield ALP [Catalytic activity/Vol] 47 U/L Normal 46-116 [facility] Comment on above: Performed By: #### M G, CMP #### [facility] [address] [address] [address] Deepak Greenfield ALT [Catalytic activity/Vol] 48 U/L Normal 16-63 [facility] Comment on above: Performed By: #### M G, CMP #### [facility] [address] [address] [address] Deepak Greenfield Anion gap [Moles/Vol] 9.5 mmol/L Normal [facility] Comment on above: Performed By: #### M G, CMP #### [facility] [address] [address] [address] Deepak Greenfield AST [Catalytic activity/Vol] 30 U/L Normal 15-37 [facility] Comment on above: Performed By: #### M G, CMP #### [facility] [address] [place] [address] Dr. Deepak Greenfield Bilirubin [Mass/Vol] 0.2 mg/dL Normal 0.2-1.0 [facility] Comment on above: Performed By: #### M G, CMP #### [facility] [address] [address] [address] Deepak Greenfield Calcium [Mass/Vol] 8.7 mg/dL Normal 8.5-10.1 [facility] Comment on above: Performed By: #### M G, CMP #### [facility] [address] [address] [address] Deepak Greenfield Chloride [Moles/Vol] 105 mmol/L Normal 98-107 [facility] Comment on above: Performed By: #### M G, CMP #### [facility] [address] [address] [address] Deepak Greenfield CO2 [Moles/Vol] 32.6 mmol/L Critically high 21.0-32.0 [facility] Comment on above: Performed By: #### M G, CMP #### [facility] [address] [address] [address] Deepak Greenfield Creatinine [Mass/Vol] 0.70 mg/dL Normal 0.70-1.30 [facility] Comment on above: Performed By: #### M G, CMP #### [facility] [address] [address] [address] Deepak Greenfield EGFR-AF MONTENEGRIN >60 Normal >=60 [facility] Comment on above: Performed By: #### M G, CMP #### [facility] [address] [address] [address] Deepak Greenfield EGFR-NON AF MONTENEGRIN >60 Normal >=60 [facility] Comment on above: Performed By: #### M G, CMP #### [facility] [address] [place] [address] Dr. Deepak Greenfield Globulin (S) [Mass/Vol] 3.8 g/dL Normal [facility] Comment on above: Performed By: #### M G, CMP #### [facility] [address] [place] [address] Dr. Deepak Greenfield Glucose [Mass/Vol] 98 mg/dL Normal 74-106 [facility] Comment on above: Performed By: #### M G, CMP #### [facility] [address] [place] [address] Dr. Deepak Greenfield Potassium [Moles/Vol] 4.1 mmol/L Normal 3.5-5.1 [facility] Comment on above: Performed By: #### M G, CMP #### [facility] [address] [place] [address] Dr. Deepak Greenfield Protein [Mass/Vol] 7.2 g/dL Normal 6.4-8.2 [facility] Comment on above: Performed By: #### M G, CMP #### [facility] [address] [place] [address] Dr. Deepak Greenfield Sodium [Moles/Vol] 143 mmol/L Normal 136-145 [facility] Comment on above: Performed By: #### M G, CMP #### [facility] [address] [place] [address] Dr. Deepak Greenfield Urea nitrogen [Mass/Vol] 10.0 mg/dL Normal 7.0-18.0 [facility] Comment on above: Performed By: #### M Lacy, CMP #### [facility] [address] [place] [address] Dr. Deepak Greenfield Urea nitrogen/Creatinine [Mass ratio] 14.3 mg/mg Normal [facility] Comment on above: Performed By: #### M G, CMP #### [facility] [address] [place] [address] Dr. Deepak Greenfield VITAMIN D 25 OHon 03-19-2022 VIT D 25-OH 67.5 ng/mL Normal [facility] Comment on above: Performed By: #### Karishma Bajwa, CMP #### [facility] [address] [place] [address] Dr. Deepak Greenfield VIT D RANGES SEE BELOW Normal [facility] Comment on above: Result Comment: <20 ng/mL Vit D deficient 20 - <30 ng/mL Vit D insufficient 30 - 100 ng/mL Vit D sufficient >100 ng/mL Potential Toxicity Performed By: #### Karishma Bajwa, CMP #### [facility] [address] [place] [address] Dr. Deepak Greenfield AMMONIAon 03-10-2022 Ammonia (P) [Moles/Vol] 36 umol/L Critically high [facility] Comment on above: Performed By: #### C BC #### [facility] [address] [place] [address] Dr. Deepak Greenfield DEPAKENE/ VALPROIC ACIDon DEPAKENE 93.5 ug/ml Normal 50.0-100.0 [facility] Comment on above: Performed By: #### B MP #### [facility] [address] [place] [address] Dr. Deepak Greenfield BNPon 01-24-2022 Natriuretic peptide B (Bld) [Mass/Vol] 183.0 pg/mL Normal <=450.0 [facility] Comment on above: Performed By: #### M Lacy, CMP #### [facility] [address] [place] [address] Dr. Deepak Greenfield CBC AUTO DIFFon 01-24-2022 BASO # 0.0 103/ul Normal 0.0-0.1 [facility] Comment on above: Performed By: #### C VDTBH #### [facility] [address] [place] [address] Dr. Deepak Greenfield Basophils/100 WBC (Bld) 0.3 % Normal 0.2-2.0 [facility] Comment on above: Performed By: #### C VDTBH #### [facility] [address] [place] [address] Dr. Deepak Greenfield EO # 0.1 103/ul Normal 0.0-0.7 [facility] Comment on above: Performed By: #### C VDTBH #### [facility] [address] [place] [address] Dr. Deepak Greenfield Eosinophils/100 WBC (Bld) 0.4 % Critically low 0.9-7.0 [facility] Comment on above: Performed By: #### C VDTBH #### [facility] [address] [place] [address] Dr. Deepak Greenfield Erythrocyte distribution width (RBC) [Ratio] 13.6 % Normal 11.0-15.0 [facility] Comment on above: Performed By: #### C VDTBH #### [facility] [address] [place] [address] Dr. Deepak Greenfield Hematocrit (Bld) [Volume fraction] 39.3 % Critically low 42.0-54.0 [facility] Comment on above: Performed By: #### C VDTBH #### [facility] [address] [place] [address] Dr. Deepak Greenfield Hemoglobin (Bld) [Mass/Vol] 12.6 g/dL Critically low 14.0-18.0 [facility] Comment on above: Performed By: #### C VDTBH #### [facility] [address] [place] [address] Dr. Deepak Greenfield IG # 0.04 10e3/ul Critically high 0.00-0.03 [facility] Comment on above: Performed By: #### C VDTBH #### [facility] [address] [address] [address] Deepak Greenfield IG % 0.3 % Normal 0.0-0.5 [facility] Comment on above: Performed By: #### C VDTBH #### [facility] [address] [address] [address] Deepak Greenfield LYMPH # 2.4 103/ul Normal 1.2-3.8 [facility] Comment on above: Performed By: #### C VDTBH #### [facility] [address] [address] [address] Deepak Greenfield Lymphocytes/100 WBC (Bld) 16.6 % Critically low 20.5-60.0 [facility] Comment on above: Performed By: #### C VDTBH #### [facility] [address] [address] [address] Deepak Greenfield MANUAL DIFF REQ NO Normal [facility] Comment on above: Performed By: #### C VDTBH #### [facility] [address] [address] [address] Deepak Greenfield MCH (RBC) [Entitic mass] 32.0 pg Normal 25.9-34.0 [facility] Comment on above: Performed By: #### C VDTBH #### [facility] [address] [address] [address] Deepak Greenfield MCHC (RBC) [Mass/Vol] 32.1 g/dL Normal 29.9-35.2 [facility] Comment on above: Performed By: #### C VDTBH #### [facility] [address] [address] [address] Deepak Greenfield MCV (RBC) [Entitic vol] 99.7 fL Critically high 80.0-94.0 [facility] Comment on above: Performed By: #### C VDTBH #### [facility] [address] [address] [address] Deepak Greenfield MONO # 1.4 103/ul Critically high 0.3-0.8 [facility] Comment on above: Performed By: #### C VDTBH #### [facility] [address] [place] [address] Dr. Deepak Greenfield Monocytes/100 WBC (Bld) 9.8 % Normal 1.7-12.0 [facility] Comment on above: Performed By: #### C VDTBH #### [facility] [address] [place] [address] Dr. Deepak Greenfield NEUT # 10.7 103/ul Critically high 1.4-6.5 [facility] Comment on above: Performed By: #### C VDTBH #### [facility] [address] [place] [address] Dr. Deepak Greenfield Neutrophils/100 WBC (Bld) 72.6 % Normal 43.0-75.0 [facility] Comment on above: Performed By: #### C VDTBH #### [facility] [address] [place] [address] Dr. Deepak Greenfield Platelet mean volume (Bld) [Entitic vol] 10.4 fL Normal 9.5-13.5 [facility] Comment on above: Performed By: #### C VDTBH #### [facility] [address] [place] [address] Dr. Deepak Greenfield PLT 280 103/ul Normal 150-450 [facility] Comment on above: Performed By: #### C VDTBH #### [facility] [address] [place] [address] Dr. Deepak Greenfield RBC 3.94 106/ul Critically low 4.70-6.10 [facility] Comment on above: Performed By: #### C VDTBH #### [facility] [address] [place] [address] Dr. Deepak Greenfield WBC 14.7 103/ul Critically high 4.0-11.0 [facility] Comment on above: Performed By: #### C VDTBH #### [facility] [address] [place] [address] Dr. Deepak Greenfield CULTURE BLOODon 01-24-2022 Microscopic examination of blood, culture Culture Observations: No growth at 5 days. Normal [facility] Comment on above: Performed By: #### C BC #### [facility] [address] [place] [address] Dr. Deepak Greenfield Microscopic examination of blood, culture Culture Observations: No growth at 5 days. Normal [facility] Comment on above: Performed By: #### C BC #### [facility] [address] [place] [address] Dr. Deepak Greenfield Covid-19 PCR ([facility])on SARS-CoV-2 (COVID-19) RNA CINDY+probe Ql (Unsp spec) Not detected Normal NOT DETECTED [facility] Comment on above: Result Comment: [...] for this test is supported by the [employer] of Health and Human Service's declaration that [...] used). Performed By: #### I NFLUAB #### [facility] [address] [place], [place] [id number] Dr. Deepak Greenfield LACTATE/LACTIC ACIDon 2021 Lactate [Moles/Vol] 1.7 mmol/L Normal 0.4-1.9 [facility] Comment on above: Performed By: #### M G, CMP #### [facility] [address] [place] [address] Dr. Deepak Greenfield PROF 14(COMP METB)on 022 Albumin [Mass/Vol] 3.2 g/dL Critically low 3.4-5.0 [facility] Comment on above: Performed By: #### M G, CMP #### [facility] [address] [address] [address] Deepak Greenfield Albumin/Globulin [Mass ratio] 0.7 {ratio} Normal [facility] Comment on above: Performed By: #### M G, CMP #### [facility] [address] [address] [address] Deepak Greenfield ALP [Catalytic activity/Vol] 49 U/L Normal 46-116 [facility] Comment on above: Performed By: #### M G, CMP #### [facility] [address] [address] [address] Deepak Greenfield ALT [Catalytic activity/Vol] 41 U/L Normal 16-63 [facility] Comment on above: Performed By: #### M G, CMP #### [facility] [address] [address] [address] Deepak Greenfield Anion gap [Moles/Vol] 11.1 mmol/L Normal [facility] Comment on above: Performed By: #### M G, CMP #### [facility] [address] [address] [address] Deepak Greenfield AST [Catalytic activity/Vol] 29 U/L Normal 15-37 [facility] Comment on above: Performed By: #### M G, CMP #### [facility] [address] [address] [address] Deepak Greenfield Bilirubin [Mass/Vol] 0.5 mg/dL Normal 0.2-1.0 [facility] Comment on above: Performed By: #### M G, CMP #### [facility] [address] [address] [address] Deepak Greenfield Calcium [Mass/Vol] 9.1 mg/dL Normal 8.5-10.1 [facility] Comment on above: Performed By: #### M G, CMP #### [facility] [address] [address] [address] Deepak Greenfield Chloride [Moles/Vol] 108 mmol/L Critically high 98-107 [facility] Comment on above: Performed By: #### M G, CMP #### [facility] [address] [address] [address] Deepak Greenfield CO2 [Moles/Vol] 25.7 mmol/L Normal 21.0-32.0 [facility] Comment on above: Performed By: #### M G, CMP #### [facility] [address] [address] [address] Deepak Greenfield Creatinine [Mass/Vol] 0.89 mg/dL Normal 0.70-1.30 [facility] Comment on above: Performed By: #### M G, CMP #### [facility] [address] [address] [address] Deepak Greenfield EGFR-AF MONTENEGRIN >60 Normal >=60 [facility] Comment on above: Performed By: #### M G, CMP #### [facility] [address] [address] [address] Deepak Greenfield EGFR-NON AF MONTENEGRIN >60 Normal >=60 [facility] Comment on above: Performed By: #### M G, CMP #### [facility] [address] [address] [address] Deepak Greenfield Globulin (S) [Mass/Vol] 4.5 g/dL Normal [facility] Comment on above: Performed By: #### M G, CMP #### [facility] [address] [address] [address] Deepak Greenfield Glucose [Mass/Vol] 178 mg/dL Critically high 74-106 [facility] Comment on above: Performed By: #### M G, CMP #### [facility] [address] [address] [address] Deepak Greenfield Potassium [Moles/Vol] 3.8 mmol/L Normal 3.5-5.1 [facility] Comment on above: Performed By: #### M G, CMP #### [facility] [address] [address] [address] Deepak Greenfield Protein [Mass/Vol] 7.7 g/dL Normal 6.4-8.2 [facility] Comment on above: Performed By: #### M G, CMP #### [facility] [address] [address] [address] Deepak Greenfield Sodium [Moles/Vol] 141 mmol/L Normal 136-145 [facility] Comment on above: Performed By: #### M G, CMP #### [facility] [address] [address] [address] Deepak Greenfield Urea nitrogen [Mass/Vol] 16.0 mg/dL Normal 7.0-18.0 [facility] Comment on above: Performed By: #### M G, CMP #### [facility] [address] [address] [address] Deepak Greenfield Urea nitrogen/Creatinine [Mass ratio] 18.0 mg/mg Normal [facility] Comment on above: Performed By: #### M G, CMP #### [facility] [address] [address] [address] Deepak Greenfield TROPONIN, HIGH SENSITIVITYon 01-24-2022 HSTROP 6.4 pg/mL Normal 4.0-76.1 [facility] Comment on above: Result Comment: CUT- OFF POINTS HAVE BEEN ESTABLISHED BASED ON THE FOURTH UNIVERSAL DEFINITIONS OF MYOCARDIAL INFARCTION. THE UPPER REFERENCE LIMIT (URL) OF TROPONIN, DEFINED THE 99TH PERCENTILE OF cTnI DISTRIBUTION IN A REFERENCE POPULATION, HAS BEEN CONFIRMED THE DECISION THRESHOLD FOR [place] DIAGNOSIS. Performed By: #### M G, CMP #### [facility] [address] [address] [address] Deepak Greenfield XR CHEST 1 Von [...] ANICETO CROCKER Date: 2022-01-24 15:28 Normal [facility] UA RANDOM W/MICROSCOPICon BACTERIA NONE SEEN Normal NONE SEEN [facility] Comment on above: Performed By: #### C VDTB #### [facility] [address] [place] [address] Dr. Deepak Greenfield Bilirubin Ql (U) Negative Normal NEGATIVE [facility] Comment on above: Performed By: #### C VDTBH #### [facility] [address] [place] [address] Dr. Deepak Greenfield CAST NONE SEEN Normal NONE SEEN [facility] Comment on above: Performed By: #### C VDTBH #### [facility] [address] [address] [address] Deepak Greenfield Clarity (U) CLEAR Normal CLEAR [facility] Comment on above: Performed By: #### C VDTBH #### [facility] [address] [place] [address] Dr. Deepak Greenfield Color (U) YELLOW Normal YELLOW [facility] Comment on above: Performed By: #### C VDTBH #### [facility] [address] [place] [address] Dr. Deepak Greenfield Crystals LM Nom (Urine sed) NONE SEEN Normal NONE SEEN [facility] Comment on above: Performed By: #### C VDTBH #### [facility] [address] [place] [address] Dr. Deepak Greenfield Epithelial cells LM Ql (Urine sed) RARE Normal NONE SEEN /RARE [facility] Comment on above: Performed By: #### C VDTBH #### [facility] [address] [place] [address] Dr. Deepak Greenfield Glucose Ql (U) Negative Normal NEGATIVE [facility] Comment on above: Performed By: #### C VDTBH #### [facility] [address] [place] [address] Dr. Deepak Greenfield Hemoglobin Ql (U) Negative Normal NEGATIVE [facility] Comment on above: Performed By: #### C VDTBH #### [facility] [address] [place] [address] Dr. Deepak Greenfield Ketones Ql (U) 15 mg/dl Abnormal NEGATIVE [facility] Comment on above: Performed By: #### C VDTBH #### [facility] [address] [address] [address] Deepak Greenfield LEUKOCYTES Negative Normal NEGATIVE [facility] Comment on above: Performed By: #### C VDTBH #### [facility] [address] [place] [address] Dr. Deepak Greenfield MUCOUS NONE SEEN Normal NONE SEEN [facility] Comment on above: Performed By: #### C VDTBH #### [facility] [address] [place] [address] Dr. Deepak Greenfield Nitrite Ql (U) Negative Normal NEGATIVE [facility] Comment on above: Performed By: #### C VDTBH #### [facility] [address] [place] [address] Dr. Deepak Greenfield pH (U) 6.0 [pH] Normal 5-9 [facility] Comment on above: Performed By: #### C VDTBH #### [facility] [address] [place] [address] Dr. Deepak Greenfield RBC 0-2 Normal 0-2 [facility] Comment on above: Performed By: #### C VDTBH #### [facility] [address] [place] [address] Dr. Deepak Greenfield SPEC GRAVITY 1.020 Normal 1.005-<=1.025 [facility] Comment on above: Performed By: #### C VDTBH #### [facility] [address] [place] [address] Dr. Deepak Greenfield UA PROTEIN Negative Normal NEGATIVE/ TRACE [facility] Comment on above: Performed By: #### C VDTBH #### [facility] [address] [place] [address] Dr. Deepak Greenfield Urobilinogen Qn (U) 0.2 {Ottoniel'U}/dL Normal 0.2 - 1. 0 [facility] Comment on above: Performed By: #### C VDTBH #### [facility] [address] [place] [address] Dr. Deepak Greenfield WBC NONE SEEN Normal NONE SEEN [facility] Comment on above: Performed By: #### C VDTBH #### [facility] [address] [place] [address] Dr. Deepak Greenfield ALBUMINon 01-12-2022 Albumin [Mass/Vol] 3.4 g/dL Normal 3.4-5.0 [facility] Comment on above: Performed By: #### C VDTBH #### [facility] [address] [place] [address] Dr. Deepak Greenfield ALKALINE PHOSPHAon ALP [Catalytic activity/Vol] 46 U/L Normal 46-116 [facility] Comment on above: Performed By: #### C VDTBH #### [facility] [address] [place] [address] Dr. Deepak Greenfield AMMONIAon 01-12-2022 Ammonia (P) [Moles/Vol] 93 umol/L Critically high 11-32 [facility] Comment on above: Performed By: #### I NFLUAB #### [facility] [address] [place] [address] Dr. Deepak Greenfield BILIRUBIN CONJUGATED (DIRECT )on 01-12-2022 BILI, CONJUGATED 0.1 mg/dL Normal 0.0-0.2 [facility] Comment on above: Performed By: #### C VDTBH #### [facility] [address] [place] [address] Dr. Deepak Greenfield BILIRUBIN TOTALon 01-12-2022 Bilirubin [Mass/Vol] 0.4 mg/dL Normal 0.2-1.0 [facility] Comment on above: Performed By: #### C VDTBH #### [facility] [address] [place] [address] Dr. Deepak Greenfield CBC AUTO DIFFon 01-12-2022 BASO # 0.0 103/ul Normal 0.0-0.1 [facility] Comment on above: Performed By: #### M G, CMP #### [facility] [address] [place] [address] Dr. Deepak Greenfield Basophils/100 WBC (Bld) 0.3 % Normal 0.2-2.0 [facility] Comment on above: Performed By: #### M Lacy, CMP #### [facility] [address] [place] [address] Dr. Deepak Greenfield EO # 0.1 103/ul Normal 0.0-0.7 [facility] Comment on above: Performed By: #### M G, CMP #### [facility] [address] [place] [address] Dr. Deepak Greenfield Eosinophils/100 WBC (Bld) 1.3 % Normal 0.9-7.0 [facility] Comment on above: Performed By: #### M G, CMP #### [facility] [address] [place] [address] Dr. Deepak [place] Erythrocyte distribution width (RBC) [Ratio] 14.2 % Normal 11.0-15.0 [facility] Comment on above: Performed By: #### M G, CMP #### [facility] [address] [place] [address] Dr. Deepak [place] Hematocrit (Bld) [Volume fraction] 40.4 % Critically low 42.0-54.0 [facility] Comment on above: Performed By: #### M G, CMP #### [facility] [address] [place] [address] Dr. Deepak [place] Hemoglobin (Bld) [Mass/Vol] 13.1 g/dL Critically low 14.0-18.0 [facility] Comment on above: Performed By: #### M G, CMP #### [facility] [address] [place] [address] Dr. Deepak [place] IG # 0.01 10e3/ul Normal 0.00-0.03 [facility] Comment on above: Performed By: #### M G, CMP #### [facility] [address] [place] [address] Dr. Deepak [place] IG % 0.1 % Normal 0.0-0.5 [facility] Comment on above: Performed By: #### M G, CMP #### [facility] [address] [place] [address] Dr. Deepak [place] LYMPH # 3.3 103/ul Normal 1.2-3.8 [facility] Comment on above: Performed By: #### M G, CMP #### [facility] [address] [place] [address] Dr. Deepak [place] Lymphocytes/100 WBC (Bld) 42.3 % Normal 20.5-60.0 [facility] Comment on above: Performed By: #### M G, CMP #### [facility] [address] [place] [address] Dr. Deepak [place] MANUAL DIFF REQ NO Normal [facility] Comment on above: Performed By: #### M G, CMP #### [facility] [address] [place] [address] Dr. Deepak [place] MCH (RBC) [Entitic mass] 32.4 pg Normal 25.9-34.0 [facility] Comment on above: Performed By: #### M G, CMP #### [facility] [address] [place] [address] Dr. Deepak [place] MCHC (RBC) [Mass/Vol] 32.4 g/dL Normal 29.9-35.2 [facility] Comment on above: Performed By: #### M G, CMP #### [facility] [address] [place] [address] Dr. Deepak [place] MCV (RBC) [Entitic vol] 100.0 fL Critically high 80.0-94.0 [facility] Comment on above: Performed By: #### M G, CMP #### [facility] [address] [place] [address] Dr. Deepak [place] MONO # 0.6 103/ul Normal 0.3-0.8 [facility] Comment on above: Performed By: #### M G, CMP #### [facility] [address] [place] [address] Dr. Deepak [place] Monocytes/100 WBC (Bld) 7.6 % Normal 1.7-12.0 [facility] Comment on above: Performed By: #### M G, CMP #### [facility] [address] [place] [address] Dr. Deepak [place] NEUT # 3.8 103/ul Normal 1.4-6.5 [facility] Comment on above: Performed By: #### M G, CMP #### [facility] [address] [address] [address] Deepak [place] Neutrophils/100 WBC (Bld) 48.4 % Normal 43.0-75.0 [facility] Comment on above: Performed By: #### M G, CMP #### [facility] [address] [address] [address] Deepak [place] Platelet mean volume (Bld) [Entitic vol] 9.6 fL Normal 9.5-13.5 [facility] Comment on above: Performed By: #### M G, CMP #### [facility] [address] [address] [address] Deepak [place] PLT 315 103/ul Normal 150-450 [facility] Comment on above: Performed By: #### M G, CMP #### [facility] [address] [address] [address] Deepak [place] RBC 4.04 106/ul Critically low 4.70-6.10 [facility] Comment on above: Performed By: #### M G, CMP #### [facility] [address] [address] [address] Deepak [place] WBC 7.9 103/ul Normal 4.0-11.0 [facility] Comment on above: Performed By: #### M G, CMP #### [facility] [address] [address] [address] Deepak [place] DEPAKENE/VALPROICon 01-13-20 22 DEPAKENE 89.7 ug/ml Normal 50.0-100.0 [facility] Comment on above: Performed By: #### I NFLUAB #### [facility] [address] [address] [address] Deepak [place] PROF CHEM 8 (BAS METB)on Anion gap [Moles/Vol] 12.9 mmol/L Normal [facility] Comment on above: Performed By: #### I NFLUAB #### [facility] [address] [address] [address] Deepak [place] Calcium [Mass/Vol] 8.8 mg/dL Normal 8.5-10.1 [facility] Comment on above: Performed By: #### I NFLUAB #### [facility] [address] [address] [address] Deepak [place] Chloride [Moles/Vol] 103 mmol/L Normal 98-107 [facility] Comment on above: Performed By: #### I NFLUAB #### [facility] [address] [address] [address] Deepak [place] CO2 [Moles/Vol] 28.1 mmol/L Normal 21.0-32.0 [facility] Comment on above: Performed By: #### I NFLUAB #### [facility] [address] [place] [address] Dr. Deepak [place] Creatinine [Mass/Vol] 0.58 mg/dL Critically low 0.70-1.30 [facility] Comment on above: Performed By: #### I NFLUAB #### [facility] [address] [place] [address] Dr. Deepak [place] EGFR-AF MONTENEGRIN >60 Normal >=60 [facility] Comment on above: Performed By: #### I NFLUAB #### [facility] [address] [place] [address] Dr. Deepak [place] EGFR-NON AF MONTENEGRIN >60 Normal >=60 [facility] Comment on above: Performed By: #### I NFLUAB #### [facility] [address] [place] [address] Dr. Deepak Greenfield Glucose [Mass/Vol] 117 mg/dL Critically high 74-106 [facility] Comment on above: Performed By: #### I NFLUAB #### [facility] [address] [address] [address] Deepak Green[place] Potassium [Moles/Vol] 4.0 mmol/L Normal 3.5-5.1 [facility] Comment on above: Performed By: #### I NFLUAB #### [facility] [address] [place] [address] Dr. Deepak [place] Sodium [Moles/Vol] 140 mmol/L Normal 136-145 [facility] Comment on above: Performed By: #### I NFLUAB #### [facility] [address] [place] [address] Dr. Deepak [place] Urea nitrogen [Mass/Vol] 7.0 mg/dL Normal 7.0-18.0 [facility] Comment on above: Performed By: #### I NFLUAB #### [facility] [address] [place] [address] Dr. Deepak [place] Urea nitrogen/Creatinine [Mass ratio] 12.1 mg/mg Normal [facility] Comment on above: Performed By: #### I NFLUAB #### [facility] [address] [place] [address] Dr. Deepak [place] SGOTon 01-12-2022 AST [Catalytic activity/Vol] 31 U/L Normal 15-37 [facility] Comment on above: Performed By: #### C VDTBH #### [facility] [address] [place] [address] Dr. Deepak [place] [facility] [place] 01-12-2022 ALT [Catalytic activity/Vol] 48 U/L Normal 16-63 [facility] Comment on above: Performed By: #### C VDTBH #### [facility] [address] [place] [address] Dr. Deepak Greenfield T PROTEIN SERUMon 01-12-2022 Protein [Mass/Vol] 7.3 g/dL Normal 6.4-8.2 [facility] Comment on above: Performed By: #### B MP #### [facility] [address] [place] [address] Dr. Deepak Greenfield XR CHEST 2 Von [...] by: ANICETO CROCKER Date: 2022-01-06 16:15 Normal [facility] XR DEXA BONE DENSITYon 11-20 [...] by: MARGARITO DAVIES Date: 2021-11-20 11:42 Normal [facility] US SCROTUMon 11-14-2021 US SCROTUM [...] KRISTIAN BILLINGS Date: 2021-11-14 07:10 Normal [facility] AMMONIAon 10-31-2021 Ammonia (P) [Moles/Vol] 88 umol/L Critically high 11-32 [facility] Comment on above: Performed By: #### M G, CMP #### [facility] [address] [place] [address] Dr. Deepak [place]field AMMONIAon 10-30-2021 Ammonia (P) [Moles/Vol] 103 umol/L Critically high 11-32 [facility] Comment on above: Result Comment: SPEC IMEN SLIGHTLY HEMOLYZED MAY AFFECT AMM RESULT Performed By: #### I NFLUAB #### [facility] [address] [place] [address] Dr. Deepak [place]field WOUND CULTUREon 10-23-2021 Bacteria identified Aer cx Nom (Unsp spec) Final report Normal [facility] Comment on above: Performed By: #### C XWND #### [facility] [address] [place] [address] Dr. Deepak Greenfield Result 1 Comment Normal [facility] Comment on above: Result Comment: No g rowth in 36 - 48 hours. Performed By: #### C XWND #### [facility] [address] [place] [address] Dr. Deepak [place] WOUND CULTUREon 10-02-2021 Bacteria identified Aer cx Nom (Unsp spec) Final report Normal [facility] Comment on above: Performed By: #### A MM #### [facility] [address] [place] [address] Dr. Deepak [place] Result 1 Mixed skin omid Normal [facility] Comment on above: Performed By: #### A MM #### [facility] [address] [place] [address] Dr. Deepak [place] AMYLASEon 09-22-2021 Amylase [Catalytic activity/Vol] 24 U/L Critically low 25-115 [facility] Comment on above: Performed By: #### C BC #### [facility] [address] [place] [address] Dr. Deepak [place] CBC AUTO DIFFon 09-22-2021 BASO # 0.0 103/ul Normal 0.0-0.1 [facility] Comment on above: Performed By: #### C VDTBH #### [facility] [address] [place] [address] Dr. Deepak [place] Basophils/100 WBC (Bld) 0.5 % Normal 0.2-2.0 [facility] Comment on above: Performed By: #### C VDTBH #### [facility] [address] [place] [address] Dr. Deepak Greenfield EO # 0.1 103/ul Normal 0.0-0.7 [facility] Comment on above: Performed By: #### C VDTBH #### [facility] [address] [place] [address] Dr. Deepak [place] Eosinophils/100 WBC (Bld) 1.3 % Normal 0.9-7.0 [facility] Comment on above: Performed By: #### C VDTBH #### [facility] [address] [place] [address] Dr. Deepak [place] Erythrocyte distribution width (RBC) [Ratio] 13.9 % Normal 11.0-15.0 [facility] Comment on above: Performed By: #### C VDTBH #### [facility] [address] [place] [address] Dr. Deepak [place] Hematocrit (Bld) [Volume fraction] 40.0 % Critically low 42.0-54.0 [facility] Comment on above: Performed By: #### C VDTBH #### [facility] [address] [place] [address] Dr. Deepak [place] Hemoglobin (Bld) [Mass/Vol] 13.0 g/dL Critically low 14.0-18.0 [facility] Comment on above: Performed By: #### C VDTBH #### [facility] [address] [place] [address] Dr. Deepak Green[place] IG # 0.01 10e3/ul Normal 0.00-0.03 [facility] Comment on above: Performed By: #### C VDTBH #### [facility] [address] [address] [address] Deepak Green[place] IG % 0.2 % Normal 0.0-0.5 [facility] Comment on above: Performed By: #### C VDTBH #### [facility] [address] [place] [address] Dr. Deepak Greenfield LYMPH # 3.0 103/ul Normal 1.2-3.8 [facility] Comment on above: Performed By: #### C VDTBH #### [facility] [address] [place] [address] Dr. Deepak Greenfield Lymphocytes/100 WBC (Bld) 47.9 % Normal 20.5-60.0 [facility] Comment on above: Performed By: #### C VDTBH #### [facility] [address] [place] [address] Dr. Deepak Green[place] MANUAL DIFF REQ NO Normal [facility] Comment on above: Performed By: #### C VDTBH #### [facility] [address] [place] [address] Dr. Deepak Greenfield MCH (RBC) [Entitic mass] 32.9 pg Normal 25.9-34.0 [facility] Comment on above: Performed By: #### C VDTBH #### [facility] [address] [place] [address] Dr. Deepak Greenfield MCHC (RBC) [Mass/Vol] 32.5 g/dL Normal 29.9-35.2 [facility] Comment on above: Performed By: #### C VDTBH #### [facility] [address] [place] [address] Dr. Deepak Greenfield MCV (RBC) [Entitic vol] 101.3 fL Critically high 80.0-94.0 [facility] Comment on above: Performed By: #### C VDTBH #### [facility] [address] [place] [address] Dr. Deepak Greenfield MONO # 0.7 103/ul Normal 0.3-0.8 [facility] Comment on above: Performed By: #### C VDTBH #### [facility] [address] [place] [address] Dr. Deepak Greenfield Monocytes/100 WBC (Bld) 10.3 % Normal 1.7-12.0 [facility] Comment on above: Performed By: #### C VDTBH #### [facility] [address] [place] [address] Dr. Deepak Greenfield NEUT # 2.5 103/ul Normal 1.4-6.5 [facility] Comment on above: Performed By: #### C VDTBH #### [facility] [address] [place] [address] Dr. Deepak Greenfield Neutrophils/100 WBC (Bld) 39.8 % Critically low 43.0-75.0 [facility] Comment on above: Performed By: #### C VDTBH #### [facility] [address] [place] [address] Dr. Deepak Greenfield Platelet mean volume (Bld) [Entitic vol] 10.1 fL Normal 9.5-13.5 [facility] Comment on above: Performed By: #### C VDTBH #### [facility] [address] [place] [address] Dr. Deepak Greenfield PLT 311 103/ul Normal 150-450 [facility] Comment on above: Performed By: #### C VDTBH #### [facility] [address] [place] [address] Dr. Deepak Greenfield RBC 3.95 106/ul Critically low 4.70-6.10 [facility] Comment on above: Performed By: #### C VDTBH #### [facility] [address] [place] [address] Dr. Deepak Greenfield WBC 6.3 103/ul Normal 4.0-11.0 [facility] Comment on above: Performed By: #### C VDTBH #### [facility] [address] [place] [address] ABD/PELV W CONon [...] by: JAMIE ALICIA Date: 2021-09-22 02:34 Normal [facility] CT HEAD WO CONon 09-22-2021 [...] BRITTON FONTENOT Date: 2021-09-22 01:13 Normal [facility] LIPASEon 09-22-2021 Lipase [Catalytic activity/Vol] 28.0 U/L Critically low 73.0-393.0 [facility] Comment on above: Performed By: #### C BC #### [facility] [address] [place] [address] Dr. Deepak Greenfield PROF 14(COMP METB)on 022 Albumin [Mass/Vol] 3.3 g/dL Critically low 3.4-5.0 [facility] Comment on above: Performed By: #### B MP #### [facility] [address] [place] [address] Dr. Deepak Greenfield Albumin/Globulin [Mass ratio] 0.9 {ratio} Normal [facility] Comment on above: Performed By: #### B MP #### [facility] [address] [place] [address] Dr. Deepak Greenfield ALP [Catalytic activity/Vol] 38 U/L Critically low 46-116 [facility] Comment on above: Performed By: #### B MP #### [facility] [address] [place] [address] Dr. Deepak Greenfield ALT [Catalytic activity/Vol] 91 U/L Critically high 16-63 [facility] Comment on above: Performed By: #### B MP #### [facility] [address] [place] [address] Dr. Deepak Greenfield Anion gap [Moles/Vol] 10.2 mmol/L Normal [facility] Comment on above: Performed By: #### B MP #### [facility] [address] [place] [address] Dr. Deepak Greenfield AST [Catalytic activity/Vol] 50 U/L Critically high 15-37 [facility] Comment on above: Performed By: #### B MP #### [facility] [address] [address] [address] Deepak [place] Bilirubin [Mass/Vol] 0.3 mg/dL Normal 0.2-1.0 [facility] Comment on above: Performed By: #### B MP #### [facility] [address] [address] [address] Deepak Greenfield Calcium [Mass/Vol] 8.6 mg/dL Normal 8.5-10.1 [facility] Comment on above: Performed By: #### B MP #### [facility] [address] [address] [address] Deepak Greenfield Chloride [Moles/Vol] 106 mmol/L Normal 98-107 [facility] Comment on above: Performed By: #### B MP #### [facility] [address] [address] [address] Deepak Greenfield CO2 [Moles/Vol] 29.9 mmol/L Normal 21.0-32.0 [facility] Comment on above: Performed By: #### B MP #### [facility] [address] [address] [address] Deepak Greenfield Creatinine [Mass/Vol] 0.65 mg/dL Critically low 0.70-1.30 [facility] Comment on above: Performed By: #### B MP #### [facility] [address] [address] [address] Deepak Greenfield EGFR-AF MONTENEGRIN >60 Normal >=60 [facility] Comment on above: Performed By: #### B MP #### [facility] [address] [address] [address] Deepak Greenfield EGFR-NON AF MONTENEGRIN >60 Normal >=60 [facility] Comment on above: Performed By: #### B MP #### [facility] [address] [address] [address] Deepak Greenfield Globulin (S) [Mass/Vol] 3.7 g/dL Normal [facility] Comment on above: Performed By: #### B MP #### [facility] [address] [address] [address] Deepak Greenfield Glucose [Mass/Vol] 105 mg/dL Normal 74-106 [facility] Comment on above: Performed By: #### B MP #### [facility] [address] [address] [address] Deepak Greenfield Potassium [Moles/Vol] 4.1 mmol/L Normal 3.5-5.1 [facility] Comment on above: Performed By: #### B MP #### [facility] [address] [address] [address] Deepak Greenfield Protein [Mass/Vol] 7.0 g/dL Normal 6.4-8.2 [facility] Comment on above: Performed By: #### B MP #### [facility] [address] [address] [address] Deepak Greenfield Sodium [Moles/Vol] 142 mmol/L Normal 136-145 [facility] Comment on above: Performed By: #### B MP #### [facility] [address] [address] [address] Deepak Greenfield Urea nitrogen [Mass/Vol] 13.0 mg/dL Normal 7.0-18.0 [facility] Comment on above: Performed By: #### B MP #### [facility] [address] [address] [address] Deepak Greenfield Urea nitrogen/Creatinine [Mass ratio] 20.0 mg/mg Normal [facility] Comment on above: Performed By: #### B MP #### [facility] [address] [address] [address] Deepak Greenfield Vital Signs Date Time Vital Sign Value Performing Clinician Facility 05-31-2024 13:05-0500 Diastolic blood pressure 64 mm[Hg] Rodriguez Rashel DO Work Phone: [facility] 05-31-2024 13:05-0500 Systolic blood pressure 108 mm[Hg] Rodriguez Vang DO Work Phone: [facility] 03-07-2024 11:34-0500 Diastolic blood pressure 88 mm[Hg] Rodriguez Rashel DO Work Phone: [facility] 03-07-2024 11:34-0500 Heart rate 68 /min Rodriguez Rashel DO Work Phone: [facility] 03-07-2024 11:34-0500 SaO2% (BldA) [Mass fraction] 98 % Rodriguez Rashel DO Work Phone: [facility] 03-07-2024 11:34-0500 Systolic blood pressure 128 mm[Hg] Rodriguez Rashel DO Work Phone: [facility] 12-16-2022 10:18-0400 Blood Pressure Location Arline Lue [facility] 12-16-2022 10:18-0400 Body temperature 98.06 [degF] Arline Lue [facility] 12-16-2022 10:18-0400 Diastolic blood pressure 78 mm[Hg] Arline Lue [facility] 12-16-2022 10:18-0400 Heart rate 84 /min Arline Lue [facility] 12-16-2022 10:18-0400 Systolic blood pressure 128 mm[Hg] Arline Lue [facility] 12-23-2021 11:30-0400 Body height 157.48 cm Antionette Leonel Other [employer] [facility] [employer] Other 12-23-2021 11:30-0400 Body mass index (BMI) [Ratio] 25.79 kg/m2 Antionette Leonel Other [employer] [facility] [employer] Other 12-23-2021 11:30-0400 Body temperature 98.5 [degF] Antionette Leonel Other [employer] Other 12-23-2021 11:30-0400 Body weight 63.96 kg Antionette Leonel Other [employer] [facility] [employer] Other 12-23-2021 11:30-0400 Diastolic blood pressure 70 mm[Hg] Antionette Leonel Other [facility] Other 12-23-2021 11:30-0400 Respiratory rate 20 /min Antionette Leonel Other [facility] [employer] Other 12-23-2021 11:30-0400 SaO2% (BldA) [Mass fraction] 99 % Antionette Leonel Other [facility] Other 12-23-2021 11:30-0400 Systolic blood pressure 120 mm[Hg] Antionette Leonel Other [employer] [facility] [employer] Other 10-22-2021 10:29-0400 Blood Pressure Location Arline Lue [facility] 10-22-2021 10:29-0400 Diastolic blood pressure 92 mm[Hg] Arline Lue [facility] 10-22-2021 10:29-0400 Heart rate 100 /min Arline Lue [facility] 10-22-2021 10:29-0400 Respiratory rate 16 /min Arline Lue [facility] 10-22-2021 10:29-0400 Systolic blood pressure 137 mm[Hg] Arline Levine [facility] Nataliya Encounters Encounter Date Encounter Type Care Provider Facility Start: 07-11-2024 End: 07-11-2024 ambulatory [facility] Work Phone: Start: 07-11-2024 End: 07-11-2024 Patient encounter procedure [facility] Work Phone: Start: 06-12-2024 ambulatory UNKNOWN PROVIDER Facili ty:[facility] Start: 06-12-2024 End: 06-12-2024 ambulatory AP SCOTT Facility:[facility] Start: 06-02-2024 Encounter for other preprocedural examination UNKNOWN PROVIDER [employer] [employer] [facility] Start: 06-02-2024 End: 06-02-2024 ambulatory BOYD JOHNSON Facility:[facility] Start: 06-02-2024 End: 06-02-2024 ambulatory BOYD JOHNSON Facility:[facility] Start: 05-31-2024 End: 05-31-2024 Bamboo flowsheet Rodriguez Vang DO Work Phone: [employer] Start: 05-31-2024 End: 05-31-2024 Bamboo flowsheet Rodriguez Vang DO Work Phone: [facility] Start: 05-31-2024 End: 05-31-2024 Office outpatient visit 25 minutes Rodriguez Vang DO Work Phone: [facility] Comment on above: Generalized convulsi ve epilepsy (CMS/HCC) (Primary Dx); 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); Spastic hemiplegia, nondominant side (HCC) (CMS/HCC); Spastic hemiplegia affecting dominant side (CMS/HCC); Severe intellectual disabilities (CMS/HCC); Behavior disturbance (CMS/HCC) Start: 05-31-2024 End: 05-31-2024 ambulatory RODRIGUEZ VANG Not Available Start: 03-28-2024 End: 03-28-2024 Admission to same day surgery center Jared Adair DDS Work Phone: [facility] Start: 03-07-2024 End: 03-07-2024 Bamboo flowsheet Rodriguez Rashel DO Work Phone: [employer] [facility] Start: 03-07-2024 End: 03-07-2024 Bamboo flowsheet Rodriguez Rashel DO Work Phone: [employer] [facility] Start: 03-07-2024 End: 03-07-2024 Office outpatient visit 25 minutes Rodriguezsusan Vang DO Work Phone: [employer] [facility] Comment on above: Generalized convulsi ve epilepsy (CMS/HCC) (Primary Dx); 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); Spastic hemiplegia affecting dominant side (CMS/HCC); Spastic hemiplegia, nondominant side (HCC) (CMS/HCC); Severe intellectual disabilities (CMS/HCC) Start: 03-07-2024 End: 03-07-2024 ambulatory RODRIGUEZ RASHEL Not Available Start: 01-11-2024 End: 01-11-2024 ambulatory [facility] Work Phone: Start: 01-11-2024 End: 01-11-2024 Patient encounter procedure [facility] Physician [facility] Work Phone: Start: 11-07-2023 End: 11-07-2023 Letter encounter Abundio Mares DDS Work Phone: [facility] Start: 08-25-2023 End: 08-25-2023 ambulatory RODRIGUEZ RASHEL Not Available Start: 07-06-2023 End: 07-06-2023 ambulatory [facility] Work Phone: Start: 07-06-2023 End: 07-06-2023 Patient encounter procedure [facility] Physician [facility] Work Phone: Start: 01-05-2023 End: 01-05-2023 ambulatory Antionette Leonel Other [facility] Other Start: 01-05-2023 Office outpatient vi sit 25 minutes Antionette Leonel [facility] Start: 12-16-2022 End: 12-17-2022 [facility]ulatory [facility] Start: 12-16-2022 End: 12-16-2022 Patient encounter procedure Arline Levine [facility] Start: 08-04-2022 End: 08-04-[address] FAM VENTURA Facility: Start: 07-29-2022 End: 08-02-2022 Evaluation and management of inpatient DR FAM VENTURA Facility:[facility]1 Start: 07-26-2022 End: 07-27-[address] FAM VENTURA Facility: Start: 07-23-2022 End: 07-24-2022 ambulatory FAM VENTURA Facility:[facility] Start: 07-23-2022 End: 07-23-2022 Patient encounter procedure FAM VENTURA [facility] Start: 06-23-2022 End: 06-23-2022 ambulatory Antionette Leonel Other [facility] Other Start: 06-23-2022 Office outpatient vi sit 25 minutes Antionette Leonel [facility] Start: 06-03-2022 End: 06-04-[address] FAM VENTURA Facility:[facility] Start: 05-08-2022 Letter encounter Abundio Mares DDS Work Phone: [facility] Start: 04-22-2022 End: 04-23-[address] FAM VENTURA Facility:[facility] Start: 03-19-2022 End: 03-20-[address] FAM VENTURA Facility:[facility] Start: 03-10-2022 End: 03-11-[address] FAM VENTURA Facility:[facility] Start: 01-24-2022 End: 01-24-[address] DIAMOND HAY . Facility:[facility] Start: 01-18-2022 End: 01-18-2022 ambulatory ANJELICA DOLL . Facility:[facility] Start: 01-13-[address] [facility] Start: 01-12-2022 End: 01-13-[address] RODRIGUEZ VANG Facility:[facility] Start: 01-06-2022 End: 01-07-[address] FAM VENTURA Facility:[facility] Start: 12-23-2021 End: 12-23-2021 ambulatory Antionette Leonel Other [facility] [employer] Other Start: 12-23-2021 Office outpatient vi sit 25 minutes Antionette Leonel [facility] Start: 12-16-2021 End: 12-17-2021 Patient encounter procedure Mora Correabarry [facility] Work Phone: [facility] Start: 12-10-2021 End: 12-10-2021 Patient encounter procedure Arline Levine [facility] Start: 11-20-2021 End: 11-21-[address] FAM VENTURA Facility:[facility] Start: 11-13-2021 End: 11-14-2021 ambulatory ARLINE LEVINE . Facility:[facility] Start: 10-31-2021 End: 11-01-[address] FAM VENTURA Facility:[facility] Start: 10-22-2021 End: 10-22-2021 Patient encounter procedure Arline Levine [facility] Start: 10-21-2021 End: 10-21-[address] FAM VENTURA Facility:[facility] Start: 09-29-2021 End: 09-29-[address] FAM VENTURA Facility:[facility] Start: 09-22-2021 End: 09-22-2021 ambulatory ABBI SANCHEZ Facility:[facility]1 Procedures Date Procedure Procedure Detail Performing Clinician Start: 05-31-2024 Elec julisa implt npgt phys/qhp w/o programming Rodriguez Vang DO Work Phone: Start: 03-13-2024 Elec julisa implt npgt phys/qhp w/o programming Rodriguez Vang DO Work Phone: Plan of Treatment Date Care Activity Detail Author Start: 02-01-2030 Shingles (RZV) Vacci ne (1 of 2) Shingles (RZV) Vaccine (1 of 2) [facility] Start: 11-20-2024 End: 11-20-2024 Patient encounter procedure 11/20/2024 11:20 AM EDT Office Visit YENNIFER AN [address] [place] [phone] Marissa Gonzalez NP [address] [place] [address] YENNIFER AN Start: 06-12-2024 Subsequent hospital visit by physician 06/12/2024 Hospital Encounter [facility] Surgery [address] [id number] Ap Scott, DDS [address] [place] [address] [facility] Start: 06-02-2024 End: 06-02-2024 Patient encounter procedure 06/02/2024 1:30 PM EST Office Visit [facility] [address] [place] [address] Boyd Johnson MD [address] [place], [place] [phone] [facility] Start: 05-31-2024 End: 05-31-2024 Patient encounter procedure [facility] [address] Comment on above: Arrived Start: 03-07-2024 End: 03-07-2024 Patient encounter procedure 03/07/2024 11:30 AM EST Office Visit [facility] [address] [place] [phone] Rodriguez Vang DO [address] [place] [address] Ar[address] [facility] Comment on [...] (#1) [facility] Start: 02-01-2015 [facility]id panel [facility] Start: 05-20-2012 Annual wellness visit Annual [facility] Visit ([id number]) [facility] Start: 02-01-2007 HPV [...] [facility] Start: 02-01-1995 HIV screening [facility] Start: 1980 COVID-19 Vaccine (#1) COVID-19 Vacci ne (#1) [facility] Start: 1980 Medicare Annual Wellness (AWV) Medicare Annual Wellness (AWV) [facility] DENTAL RESTORATIONS DENTAL ANI RATIONS Routine scheduled Caries [facility] Immunizations Immunization Date Immunization Notes Care Provider Fa cility 03-04-2020 pneumococcal conjuga te vaccine, 13 valent Mora Powell [facility] Work Phone: [facility] 01-26-2018 influenza, injectabl e, quadrivalent, preservative free Mora Urmetz RDH Work Phone: [facility] 01-26-2018 influenza virus vaccine, unspecified formulation Mora Urmetz RDH Work Phone: [facility] 02-10-2017 influenza virus vaccine, unspecified formulation Arline Lue [facility] 02-10-2017 influenza, injectabl e, quadrivalent, contains preservative Mora Urmetz RDH Work Phone: [facility] 02-07-2015 influenza virus vaccine, unspecified formulation Arline Lue [facility] 02-07-2015 influenza, injectabl e, quadrivalent, preservative free Mora Urmetz RDH Work Phone: [facility] 10-23-2014 pneumococcal polysaccharide vaccine, 23 valent Mora Urmetz RDH Work Phone: [facility] 12-31-2010 influenza virus vaccine, unspecified formulation Arline Lue [facility] 12-31-2010 influenza, seasonal, injectable Mora Urmetz RDH Work Phone: [facility] 03-06-2009 novel [id number], preservative-free, injectable Mora Urmetz RDH Work Phone: [facility] 02-09-2008 influenza virus vaccine, whole virus Mora Urmetz RDH Work Phone: [facility] 02-09-2008 influenza, whole Arline Lue [facility] NEGATED: Highlighted row has not occurred!12-10-2021 SARS-CoV-2 mRNA (tozinameran 5y-11y) vaccine Arline Lue [facility] Payers Date Payer Category Payer Medicaid [id number] 2011 Medicare [id number] [id number] 2011 Medicare FFS MEDICARE Member Subscriber Plan / Payer (Effective 2011-Present) Name: Parish Lopez Member ID: [id number] Relation to Subscriber: Self Name: Parish Lopez Subscriber ID: [id number] Payer ID: Not on file Group ID: Not on file Type: Medicare Address: [address] [address] [id number] 1980 Unknown [id number] 2.16.840.1.613160.3.579.2.593 1980 Unknown [id number] 2.16.840.1.693366.3.579.2.593 1980 Unknown [id number] 2.16.840.1.628988.3.579.2.593 1980 Unknown [id number] 2.16.840.1.087929.3.579.2.593 1980 Unknown [id number] 2.16.840.1.279530.3.579.2.727 1980 Unknown [id number] 2.16.840.1.734353.3.579.2.727 1980 Unknown [id number] 2.16.840.1.242351.3.579.2.1259 1980 Unknown [id number] 2.16.840.1.912621.3.579.2.1259 1980 Unknown [id number] 2.16.840.1.129774.3.579.2.1259 1980 Unknown [id number] 2.16.840.1.002107.3.579.2.732 1980 Unknown [id number] 2.16.840.1.199959.3.579.2.732 1980 Unknown [id number] 2.16.840.1.093761.3.579.2.732 1980 Unknown [id number] 2.16.840.1.508238.3.579.2.732 1980 Unknown [id number] 2.16.840.1.876022.3.579.2.732 1980 Unknown [id number] 2.16.840.1.288760.3.579.2.732 1959 Medicaid [id number] 2.16.840.1.624725.19 1959 Medicare [id number] 2.16.840.1.426459.19 1953 Unknown [id number] 2.16.840.1.322604.3.579.2.593 1953 Unknown [id number] 2.16.840.1.070621.3.579.2.593 1953 Unknown [id number] 2.16.840.1.691197.3.579.2.593 1953 Unknown [id number] 2.16.840.1.874527.3.579.2.593 1953 Unknown [id number] 2.16.840.1.153612.3.579.2.593 1953 Unknown [id number] 2.16.840.1.728913.3.579.2.593 1953 Unknown [id number] 2.16.840.1.194139.3.579.2.593 1953 Unknown [id number] 2.16.840.1.440189.3.579.2.593 1953 Unknown [id number] 2.16.840.1.416468.3.579.2.593 1953 Unknown [id number] 2.16.840.1.592723.3.579.2.593 1953 Unknown [id number] 2.16.840.1.911164.3.579.2.593 1953 Unknown [id number] 2.16.840.1.764600.3.579.2.593 1953 Unknown [id number] 2.16.840.1.438784.3.579.2.593 1953 Unknown [id number] 2.16.840.1.565761.3.579.2.593 Self-pay Self Pay [id number] Social History Date Type Detail Facility Tobacco smoking status No Smokin g Status Entered [facility] Start: 11-02-2022 End: 05-31-2024 Sex Assigned At Male [facility] Start: 03-28-[address] [facility] Start: 1980 [facility] smoking status No Smokin g Status Entered [facility] Start: 11-02-2022 End: 12-16-2022 Tobacco smoking status Never smoked tobacco (finding) [facility] Tobacco smoking status Never [facility] Start: 1980 Sex Assigned At Male [facility] Start: 11-02-2022 End: 05-31-2024 Alcoholic beverage intake Ex-drinker (finding) [facility] Start: 11-02-2022 End: 05-31-2024 History of Social function [facility] Start: 02-21-2012 End: 07-11-2024 Sex Male (finding) [facility] Functional Status Date Assessment Result Facility 12-16-2022 Functional Status N/A [facility] 12-10-2021 Functional Status N/A [facility] 10-22-2021 Functional Status N/A [facility] Clinical Notes 10-22-2021 to 06-12-2024 Rodriguez Vang, DO - 05/31/2024 1:00 PM [...] Beatris Thompson DDS 06/12/2024 6:59 AM [facility] 06-02-2024 Note EXAMINATION: XR CHES T PA+LAT 2 VIEWS 06/02/2024 03:22 PM CLINICAL HISTORY: pre op evaluation for dental restorations ASSOCIATED DIAGNOSIS: Pre-op evaluation ORDERING PROVIDER: BOYD JOHNSON TECHNOLOGISTS NOTE: COMPARISON: None FINDINGS: Cardiomediastinal silhouette: [...] and agree with the resident's interpretation. [facility] 06-02-2024 Note Do not eat or [...] procedure. Contact the Pre-Surgical Evaluation department at [phone] or your surgeon's office with any additional questions [facility] 06-02-2024 Note Pre-Admission Serjio bajwa Consultation Parish Lopez, [id number] 44 year old Male 06/02/2024 Consult placed to [facility] by Dr. Zamora due to significant PMH of Seizures, mental disability, hypothyroid undergoing dental restorations 06/12 [facility] Triage Risk Score Total Score: 2 2 [...] 1 extraction; Surgeon: Ap Scott DDS; Location: [facility]; Service: Dental Past Medical History and Review of Systems Pulmonary (+) COPD (-) sleep apnea Dental ROS (+) teeth problems missing Endo (+) hyperthyroidism Neuro/Psych (+) seizures Comment: intellectual disability Vagus nerve stimulator Cardiovascular (+) hyperlipidemia (-) hypertension, past AK, CAD, angina GI/Hepatic/Renal (+) GERD (-) renal [...] appropriate examinati (more content not included)... 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 documented in this encounter [facility] 03-07-2024 History of Present illness Narrative No [...] disorder) ADD/ADHD ADHD (attention deficit hyperactivity disorder) ([facility]) ADD/ADHD Chronic sinusitis Excessive salivation Hypertrophy tonsils Hypothyroidism ([facility]/HCC) Mental problem Mental retardation Onychomycosis Osteoporosis ([facility]) Perennial allergic rhinitis Seasonal allergies Seizure disorder ([facility]CC) 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 documented in this encounter [facility] 01-05-2023 Evaluation note Encounter Date Diagnosis Assessment Notes Dec, COPD (chronic obstructive pulmonary disease) (ICD-10 - J44.9) [facility] Other 08-30-2023 Hospital Discharge instructions Patient Education [...] provider. Document Revised: 08/14/2021 Document Reviewed: 08/14/2021 [employer] Patient Education 2022 [employer]. Follow Up Care 12/10/2021 11:51:23 With:Abner BYRNE, JUNIOR Hawk, URO Address: When: Unknown Comments:LENORA [facility] 03-07-2023 Evaluation note* Encounter Date Diagnosis Assessment Notes Treatment Notes Treatment Clinical Notes Jun, COPD (chronic obstructive pulmonary disease) (ICD-10 - J44.9) Continue with respiratory regemin, including VEST therapy, as you currently are doing. Call office with respiratory questions or concerns. [facility] Other 09-06-2022 Evaluation note* Encounter Date Diagnosis Assessment Notes Treatment Notes Treatment Clinical Notes Dec, COPD (chronic obstructive pulmonary disease) (ICD-10 - J44.9) Continue with VEST therapy twice a day. Ok to increase to TID if needed. [facility] Other 08-30-2022 Instructions* Patient Instructions* Mora Powell RDH - 12/16/2021 11:57 AM EDT Pt presented today for OR evaluation. Limited eval was completed. Pt's case is not urgent updated contact information and placed Pt on OR list. Step by step process for OR flyer was given to caregiver. Please wait for phone call from OR coordinator. documented in this [id number] History of Present illness Narrative* Mora Powell RDH - 12/16/2021 11:42 AM EDT ----- Thursday, December 16, 2021 at 12:03:50 PM ----- ----- Provider: [id number] Callahanenist -- Clinic: [place] ----- [facility], Pt is ready for tx. Pt presented for dental evaluation for future OR. Caregiver in the room. Patient is non-verbal. Severe intellectual disability, seizure disorder Caregiver stated patient is not pain and no complaining. Radiograph taken today: no possible due to patient behavior Case requested for OR. Guardian mother Katia Lopez. [phone]. [facility] [phone] EXT [id number] ( [facility] pt's appt) AVS printed and handed flyer for step by step instruction of OR process to Caregiver exam By: Elliott Ham [facility] [place]. OR ----- Signed on Thursday, December 16, 2021 at 12:18:18 PM ----- ----- Provider: Julia Adams DDS -- Clinic: [place] ----- documented in this [id number] Hospital Discharge instructions Patient Education 12/10/2021 11:47:35 [...] (electrical nerve stimulation). For women, using a biomedical scientist to prevent urine leaks. This is a [...] right after experiencing incontinence. General instructions Take reew-umc-fdcwvfn and prescription medicines only as told by [...] 05/13/2005 Document Revised: 04/15/2018 Document Reviewed: 07/15/2017 [employer] Patient Education 2020 Meridian. Follow Up Care 10/22/2021 11:38:20 With:Abner BYRNE, JUNIOR Hawk, URO Address: When:1 year Comments:W/ renal US [facility] 07-06-2022 Hospital Discharge instructions Patient [...] (electrical nerve stimulation). For women, using a biomedical scientist to prevent urine leaks. This is a [...] right after experiencing incontinence. General instructions Take nkjq-wlp-lzxlovg and prescription medicines only as told by [...] 05/13/2005 Document Revised: 04/15/2018 Document Reviewed: 07/15/2017 [employer] Patient Education 2020 Meridian. 10/22/2021 11:42:30 Renal Mass Renal Mass A [...] provider gives to you. In general: Take fosf-pdy-nwnhria and prescription medicines only as told by [...] 10/31/2014 Document Revised: 05/12/2018 Document Reviewed: 05/12/2018 [employer] Patient Education 2020 Meridian. Follow Up Care 09/22/2021 14:10:46 With:Arline Levine MD, URL, URO Address: When:1 month [facility] evaluation + Plan note Future Appointments Appointment Date:11/19/2021 10:00:00 AM Scheduled Provider:Arline Levine MD Location:[facility] Appointment Type:URO Office Visit [facility] evaluation + Plan note Future Appointments Appointment Date:12/16/2022 10:15:00 AM Scheduled Provider:Arline Levine MD Location:[facility] Appointment Type:URO Office Visit [facility] evaluation note* Diagnosis Onset Date Resolution Status COPD (chronic obstructive pulmonary disease) acute Severe intellectual disability acute [facility] Work Phone: Evaluation note* Diagnosis Generalized convulsive [...] of conduct documented in this encounter [facility] Diagnosis Onset Date Resolution Status Admit Date COPD (chronic obstructive pulmonary disease) acute July 11 9:09am Severe intellectual disability acute July 11, 2024 9:09am [facility] Work Phone: History general Narrative - Reported* Type Description Date Medical History Mental retardation Medical History Seizure Disorder Medical History Tristen Syndrome Medical History ADD Medical History Hypothyroidism Medical History Spastic Quadraparesis Medical History Osteoporosis Medical History Tristen-Beuren syndrome Medical History Seizure disorder Medical History Seizure disorder Medical History COPD Surgical History VNS REPLACED 2021 [facility] Other Hospital course Narrative No data available for this section [facility] Hospital Discharge instructions No data available for this section [facility] No data available for this section [facility] Summary Purpose Family History No [...] pulmonary disease) Severe intellectual disability Chief Complaint Admit Date H mo f/u COPD July 11, 2024 9:0 9am Reason for Visit Admit Date COPD (chronic obstructive pulmonary dise ase) July 11, 2024 9:09am Severe intellectual disability June 9:09am Additional Source Comments Care Team (unrecognized sect ion and content) Field Case Manager Relationship Specialty Start Date End Date Abundio Mares DDS [address] [place] [address] Resident Dentistry 02/23/20 Field Case Manager Relationship Specialty Start Date End Date Abundio Mares DDS [address] [place] [address] Resident Dentistry 02/23/20 Team Status: Active Member Role Status Dates Fam Ventura DO Primary Care Provider Active Team Status: Inactive Member Role Status Dates Fam Ventura DO Primary Care Provider Active Start: July 06, 2023 End: July 06, 2023 Antionette Castaneda APRN [facility] Attending Provider Active Start: July 06, 2023 End: July 06, 2023 Field Case Manager Relationship Specialty Start Date End Date Abundio Mares DDS [address] [place] [address] Resident Dentistry 02/23/20 Team Status: Inactive Member Role Status Dates Fam Ventura DO Primary Care Provider Active Start: January 11, 2024 End: January 11, 2024 Antionette Castaneda APRN [facility] Attending Provider Active Start: January 11, 2024 End: January 11, 2024 [place] Active Start: 2023 End: January 11, 2024 Field Case Manager Relationship Specialty Start Date End Date Unallocated, Faye Fermin MD [address] [place] [address] PCP - General 09/23/22 Fam Ventura MD [address] [place] [address] Referring Physician Orthopaedic Surgery 09/23/22 Field Case Manager Relationship Specialty Start Date End Date Unallocated, Faye Fermin MD [address] [place] [address] PCP - General 09/23/22 Fam Ventura MD [facility] [employer] [address] [place] [address] Referring Physician Orthopaedic Surgery 09/23/22 Field Case Manager Relationship Specialty Start Date End Date Abundio Mares [address] [address] Resident Dentistry 02/23/20 Field Case Manager Relationship Specialty Start Date End Date Abundio Mares DD [address] [place] [address] Resident Dentistry 02/23/20 Field Case Manager Relationship Specialty Start Date End Date Unallocated, Faye Fermin MD [address] [place] [address] PCP - General 09/23/22 Fam Ventura MD [address] [place], [place] [id number] Referring Physician Orthopaedic Surgery 09/23/22 Team Status: Inactive Member Role Status Dates Fam Ventura DO Primary Care Provider Active Start: July 11, 2024 End: July 11, 2024 Antionette Castaneda APRN ACNP-BC Attending Provider Active Start: July 11, 2024 End: July 11, 2024 REASON FOR VISIT (unrecogniz ed section and content) Reason Comments Seizures (unrecognized sect ion and content) No Status Records FoundNo Status Records FoundNo Status Records FoundNo Status Records Found INFORMATION SOURCE (unrecogn ized section and content) DATE CREATED AUTHOR 08/05/2022 [facility] DATE CREATED AUTHOR AUTHOR'S ORGANIZ ATION 01/26/2023 [facility] DATE CREATED AUTHOR AUTHOR'S ORGANIZ ATION 06/02/2024 [facility] DATE CREATED AUTHOR AUTHOR'S ORGANIZ ATION 06/19/2024 [facility] Goals (unrecognized section and content) Goals [...] BE BASED ON THE PRIMARY CLINICAL RECORDS. Done. [facility]. provides no warranty or guarantee of the accuracy or completeness of information in this document.
[2024-08-29 09:42] LABS: Ammonia 62 umol/L (11-32)
== END 2024-08-29 06:55 | disposition home or self-care (01) ==
LOC: LAB 06:55
PROVIDERS: PCP Family Medicine; Visit Provider Family Medicine
DX: K76.82 Hepatic encephalopathy (principal); Z79.899 Other long term (current) drug therapy
CPT/HCPCS: 36415; 82140

== ENCOUNTER 2024-10-05 09:28 | Outpatient (OUT) | payer MEDICARE, MEDICAID, SELFPAY ==
--- OUTSIDE RECORDS SUMMARY | 2024-09-26 12:49 | XMS_ITS | Clinical Summary ---
Author Organization [facility] Address [address] [place], [place] [id number] Care Team Providers Care Dictaphone Operator Name Role Phone Rosario Shaw MD Primary Care Provider Social History Tobacco Use Types Packs/Day Years Used Date Smoking Tobacco: Never Assessed Sex and Gender Information Value Date Recorded Sex Assigned at Not on file Legal Sex Male 8:53 AM EST Gender Identity Not on file Sexual Orientation Not on file Plan of Treatment Not on file Insurance MEDICARE [place]ICAID [place] Care Teams Dictaphone Operator Relationship Specialty Start Date End Date Rosario Shaw MD [address] [place] [address] [facility] - General 07/28/00
--- OUTSIDE RECORDS SUMMARY | 2024-09-26 12:49 | XMS_ITS | Clinical Summary ---
Author Organization [facility] Address [address] [place] [address] Care Team Providers Care Meat Apprentice Name Role Phone Unavailable Primary Care Provider Unavailabl e Allergies Active Allergy Reactions Criticality Noted Date Comments Amoxicillin-Pot Clavulanate 05/12/19 17 Unknown reaction Phenytoin Sodium Extended 05/12/2016 Unknown reaction Promethazine Hcl High 05/12/2016 Unknown reaction Medications alendronate (FOSAMAX) 70 MG tablet Take 70 mg by mouth every 7 days Active atorvastatin (LIPITOR) 10 MG tablet Take 10 mg by mouth nightly Active divalproex (DEPAKOTE) [address] tablet Take 250 mg by mouth 2 times daily Active divalproex (DEPAKOTE) [address] tablet Take 125 mg by mouth daily Active docusate sodium (COLACE) 100 MG capsule Take 100 mg by mouth 2 times daily Active felbamate (FELBATOL) 400 MG tablet Take 400 mg by mouth 3 times daily Active furosemide (LASIX) 20 MG tablet Take 20 mg by mouth daily Active glycopyrrolate (ROBINUL) 1 MG tablet Take 1 mg by mouth 2 times daily Active ipratropium-alb uterol (DUONEB) 0.5-2.5 (3) MG/3ML SOLN nebulizer solution Inhale 1 vial into the lungs 3 times daily Active lactulose (CHRONULAC) 10 GM/15ML solution Take 10 g by mouth 4 times daily Take 60 ml by mouth Active levETIRAcetam (KEPPRA) 750 MG tablet Take 750 mg by mouth 2 times daily Take two tabs by mouth morning and bedtime Active levothyroxine (SYNTHROID) 100 MCG tablet Take 100 mcg by mouth nightly Active levothyroxine (SYNTHROID) 50 MCG tablet Take 50 mcg by mouth nightly Active linaclotide (LINZESS) 145 MCG capsule Take 145 mcg by mouth daily Active magnesium oxide (MAG-OX) 400 MG tablet Take 400 mg by mouth daily Active melatonin 3 MG TABS tablet Take 5 mg by mouth nightly Active montelukast (SINGULAIR) 10 MG tablet Take 10 mg by mouth nightly Active guaiFENesin (MUCINEX) 600 MG extended release tablet Take 600 mg by mouth 2 times daily Active Multiple Vitamins-Minera ls (THERAPEUTIC MULTIVITAMIN-WI NERALS) tablet Take 1 tablet by mouth daily Active omeprazole (PRILOSEC) 20 MG delayed release capsule Take 40 mg by mouth daily Active cloBAZam (ONFI) 10 MG TABS tablet Take 10 mg by mouth 2 times daily Active OXcarbazepine (TRILEPTAL) 300 MG tablet Take 300 mg by mouth 2 times daily Active OXcarbazepine (TRILEPTAL) 600 MG tablet Take 600 mg by mouth 2 times daily Active calcium-vitamin D (OSCAL-500) 500-200 MG-UNIT per tablet Take 1 tablet by mouth 2 times daily Active polyethylene glycol (GLYCOLAX) powder Take 17 g by mouth daily Active tamsulosin (FLOMAX) 0.4 MG capsule Take 0.4 mg by mouth daily Active ascorbic acid (VITAMIN C) 500 MG tablet Take 500 mg by mouth 2 times daily Active azelastine (ASTELIN) 0.1 % nasal sprayIndication s:137 mcg 2 sprays by Nasal route 2 times daily Indications: 137 mcg Use in each nostril as directed Active Loratadine-Pseu doephedrine (ALLERGY RELIEF D-24 PO) Take 1 tablet by mouth daily Active sodium chloride (OCEAN, BABY AYR) 0.65 % nasal spray 2 sprays by Nasal route 3 times daily AYR saline nasal gel spray 3 times daily Active Social History Tobacco Use Types Packs/Day Years Used Date Smoking Tobacco: Never Assessed Sex and Gender Information Value Date Recorded Sex Assigned at Not on file Legal Sex Male 4:52 PM EST Gender Identity Not on file Sexual Orientation Not on file Last Filed Vital Signs Vital Sign Reading Time Taken Comments Blood Pressure 108/68 05/12/2016 12:23 PM EST Pulse 68 05/12/2016 12:23 PM EST Temperature 36.4 C (97.6 F) 05/12/2016 11:26 AM EST Respiratory Rate 16 05/12/2016 12:23 PM EST Oxygen Saturation 97% 05/12/2016 12:23 PM EST Inhaled Oxygen Concentration - - Weight 66.5 kg (146 lb 8 oz) 05/12/2016 9:29 AM EST Height 157.5 cm (5' 2 ) 05/12/2016 9:29 AM EST Body Mass Index 26.8 05/12/2016 9:29 AM EST Plan of Treatment Not on file Medical Devices Implanted Type Area Group Fitness Department Head Device Identifier Shelf Expiration Date Model / Serial / Lot Generator Aspire Sr - [id number] Implanted:Qty: 1 on 05/12/2016 by Beni Martin MD at [facility]/[employer] 01/06/2018 106 / [id number] / Insurance MEDICARE MEDICAID [place]
--- OUTSIDE RECORDS SUMMARY | 2024-09-26 12:49 | XMS_ITS | Clinical Summary ---
Author Organization [facility] Address [id number] [address] [place] [address] Care Team Providers Care Global Head [employer]iser [employer] Name Role Phone Andreia Kiser Primary Care Provider [phone] Allergies Active Allergy Reactions Criticality Noted Date Comments Amoxicillin-Pot Clavulanate 05/12/19 17 Unknown reaction Unknown reaction Phenytoin Sodium Extended 05/12/2016 Unknown reaction Unknown reaction Promethazine High 05/12/2016 Unknown reaction Unknown reaction Medications tamsulosin (FLOMAX) 0.4 mg capsule tamsulosin 0.4 mg capsule Active calcium carbonate-rosi min D3 (OSCAL 500 + D) 500 mg(1,250mg) -200 units per tablet Take 1 tablet by mouth in the morning and 1 tablet before bedtime. Active montelukast (SINGULAIR) 10 mg tablet montelukast 10 mg tablet Active melatonin (CIRCADIN) tablet Take 5 mg by mouth nightly. Active omeprazole (PriLOSEC) 20 mg capsule Take 40 mg by mouth. Active OXcarbazepine (TRILEPTAL) 600 mg tablet oxcarbazepine 600 mg tablet Active ipratropium-al buteroL (DUONEB) 0.5 mg-3 mg(2.5 mg base)/3 mL nebulizer Active levETIRAcetam (KEPPRA) 750 mg tablet levetiracetam 750 mg tablet Active levoFLOXacin (LEVAQUIN) 750 mg tablet Active levothyroxine (SYNTHROID, LEVOTHROID) 50 MCG tablet Active levothyroxine (SYNTHROID, LEVOTHROID) 100 MCG tablet levothyroxine 100 mcg tablet Active linaCLOtide (LINZESS) 145 mcg capsule Linzess 145 mcg capsule Active felbamate (FELBATOL) 400 mg tablet felbamate 400 mg tablet Active fluticasone propionate (FLONASE) 50 mcg/actuation nasal spray fluticasone propionate 50 mcg/actuation nasal spray,suspension Active glycopyrrolate (ROBINUL) 1 mg tablet glycopyrrolate 1 mg tablet Active diazePAM (DIASTAT ACUDIAL) rectal kit Insert into the rectum. 2 Active divalproex sprinkle (DEPAKOTE SPRINKLE) 125 mg capsule Take by mouth. 2 Active docusate sodium (COLACE) 100 mg capsule Take 100 mg by mouth. 2 Active doxycycline (VIBRAMYCIN) 100 mg capsule Take by mouth. 2 Active fenofibrate (TRICOR) 145 mg tablet Take by mouth. 2 Active furosemide (LASIX) 20 mg tablet Take by mouth. 2 Active magnesium oxide (MAGOX) 400 mg tablet Take by mouth. 2 Active miconazole nitrate (AISHA ANTIFUNGAL TOP) Apply topically. 2 Active alendronate (FOSAMAX) 70 mg tablet Take 70 mg by mouth every 7 days. In a.m. with water on empty stomach, nothing else by mouth and remain upright for 30min Active atorvastatin (LIPITOR) 10 mg tablet Take 10 mg by mouth in the morning. Active budesonide (PULMICORT) 0.5 mg/2 mL nebulizer solution Inhale 0.5 mg by nebulization once daily. Active cloBAZam 10 mg film Dissolve 10 mg on tongue 2 (two) times a day. Active multivit-iron- FA-calcium &mins (THERAGRAN-M) 9 mg iron-400 mcg tablet Take 1 tablet by mouth in the morning. Active loratadine (CLARITIN) 10 mg tablet Take 10 mg by mouth in the morning. Active lactulose (CHRONULAC) 10 gram/15 mL solution Take 10 g by mouth 3 (three) times a day. Active ascorbic acid (VITAMIN C) 500 mg tablet Take 500 mg by mouth in the morning. Active rifAXIMin (XIFAXAN) 550 mg tablet Take 550 mg by mouth every 8 (eight) hours. Active Active Problems Problem Noted Date Diagnosed Date Open chest wound 10/31/2021 Seizures Social History Tobacco Use Types Packs/Day Years Used Date Smoking Tobacco: Never Smokeless Tobacco: Never Alcohol Use Standard Drinks/Week Comments Defer 0 (1 standard drink = 0.6 oz pur e alcohol) Childcare Answer Date Recorded Childcare Unknown 09/27/2018 Employment Answer Date Recorded Employment Unknown 09/27/2018 Sex and Gender Information Value Date Recorded Sex Assigned at Not on file Legal Sex Male 7:50 PM EDT Gender Identity Not on file Sexual Orientation Not on file Last Filed Vital Signs Vital Sign Reading Time Taken Comments Blood Pressure 135/70 11/21/2021 1:21 PM EDT Pulse 77 11/21/2021 1:21 PM EDT Temperature 36.3 C (97.3 F) 11/04/2021 4:25 PM EDT Respiratory Rate 10 11/04/2021 5:15 PM EDT Oxygen Saturation 91% 11/04/2021 5:15 PM EDT Inhaled Oxygen Concentration - - Weight 62.1 kg (137 lb) 10/31/2021 1:02 PM EDT Height - - Body Mass Index - - Plan of Treatment Health Maintenance Due Date Last Done Comments Depression Screening 1992 Tobacco Screening 1992 Adult BMI Screening 02/01/1998 DTaP,Tdap and Td Vaccines (1 - Tdap) 02/01/1999 Influenza Vaccine 12/18/2024 01/26/2018, , 02/07/2015, Additional history exists Medical Devices Implanted Type Area Grade School Teacher Device Identifier Shelf Expiration Date Model / Serial / Lot Vns Therapy Aspiresr Implanted:Qty: 1 on 09/09/2021 by Jared Varner MD at [facility] Left: Chest OTHER 04/03/2023 106 / [id number] / Description:BATTERY EXCHANGE Insurance MEDICARE MEDICAID [place] Advance Directives Documents on File Type Date Recorded Patient Service Dispatcher Expl anation Living Will 09/09/2021 7:20 AM DNR Care Teams Global Head [employer] Relationship Specialty Start Date End Date Andreia Kiser DO [address] [place] [id number] PCP - General Neurology 07/24/21
--- OUTSIDE RECORDS SUMMARY | 2024-09-26 12:49 | XMS_ITS | Clinical Summary ---
Author Organization [facility] Address [address] [place] [address] Care Team Providers Care Relay Telegrapher Name Role Phone Unavailable Primary Care Provider Unavailabl e Social History Tobacco Use Types Packs/Day Years Used Date Smoking Tobacco: Never Assessed Sex and Gender Information Value Date Recorded Sex Assigned at Not on file Legal Sex Male 11:14 PM EST Gender Identity Not on file Sexual Orientation Not on file Plan of Treatment Health Maintenance Due Date Last Done Comments MMR Vaccine (1 of 1 - Standa rd series) 02/01/1981 DTaP/Tdap/Td Vaccine (1 - Tdap) 02/01/1987 Varicella Vaccine (1 of 2 - 13+ 2-dose series) 02/01/1993 Hepatitis B Vaccine (1 of 3 - 19+ 3-dose series) 02/01/1999 COVID-19 Vaccine ( - 2023-2 5 season) 2023 Influenza Vaccine (Season Ended) 2024 HIB Vaccine Aged Out No longer eligi ble based on patient's age to complete this topic HPV Vaccine Aged Out No longer eligi ble based on patient's age to complete this topic Hepatitis A Vaccine Aged Out No longe r eligible based on patient's age to complete this topic IPV Vaccine Aged Out No longer eligi ble based on patient's age to complete this topic Meningococcal ACWY Vaccine Aged Out N o longer eligible based on patient's age to complete this topic Meningococcal B Vaccine Aged Out No l onger eligible based on patient's age to complete this topic Pneumococcal Vaccine Aged Out No long er eligible based on patient's age to complete this topic RSV, Nirsevimab Immunization Aged Out No longer eligible based on patient's age to complete this topic Rotavirus Vaccine Aged Out No longer eligible based on patient's age to complete this topic Insurance [place] MED[place] MEDICARE
--- OUTSIDE RECORDS SUMMARY | 2024-09-26 12:49 | XMS_ITS | Clinical Summary ---
Author Organization [facility] Address [address] [place] [address] Care Team Providers Care Av Specialist Name Role Phone Fam Acevedo MD Unavailable [phone] Unallocated, Noms Provider MD Primary Care Provi scotty Allergies Active Allergy Reactions Criticality Noted Date Comments Amoxicillin Unknown 08/23/2023 Amoxicillin-Pot Clavulanate Unknown 05/12/19 17 Unknown reaction Unknown reaction Unknown reaction Clavulanic Acid Unknown 08/25/2023 Phenytoin Unknown 08/23/2023 Phenytoin Sodium Extended Unknown 05/12/2016 Unknown reaction Unknown reaction Unknown reaction Promethazine Unknown High 05/12/2016 Unknown reaction Unknown reaction Unknown reaction Medications alendronate (Fosamax) 70 MG tablet 1 tablet 30 minutes before the first food, beverage or medicine of the day with plain water Orally Active atorvastatin (Lipitor) 10 MG tablet Take 10 mg by mouth in the morning. Active budesonide (Pulmicort) 0.5 MG/2ML nebulizer solution INHALE 1 VIAL BY NEBULIZER TWICE A DAY MAY MIX WITH IPATROPRIUMALBUT CHASITY AT 8AM AND 4PM Active Calcium Carb-Cholecalc iferol (Oyster Shell Calcium w/D) 500-5 MG-MCG tablet Take 1 tablet by mouth in the morning and 1 tablet in the evening. Active cloBAZam (Onfi) 10 MG tablet TAKE ONE TABLET BY MOUTH TWICE A DAY ONFI Active Docusate Sodium (DSS) 100 MG capsule Take 100 mg by mouth in the morning and 100 mg before bedtime. Active felbamate (Felbatol) 400 MG tablet 1 (one) time each day at the same time Acti ve fenofibrate (Tricor) 145 MG tablet 1 (one) time each day at the same time Acti ve fluticasone (Flonase) 50 MCG/ACT nasal spray USE 2 SPRAYS IN EACH NOSTRIL ONCE DAILY FLONASE Active furosemide (Lasix) 20 MG tablet 1 (one) time each day at the same time Acti ve glycopyrrolate (Robinul) 1 MG tablet glycopyrrolate 1 mg tablet Active lactulose (Chronulac) 10 GM/15ML solution TAKE 90ML BY MOUTH AT 8AM, 12PM, AND 8PM Active levETIRAcetam (Keppra) 750 MG tablet levetiracetam 750 mg tablet Active levothyroxine (Synthroid, Levoxyl) 150 MCG tablet 11/11/19 Active Linzess 145 MCG capsule Take 145 mcg by mouth in the morning. 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 Seizure disorder 08/23/2023 Epilepsy 08/23/2023 Severe intellectual disabilities 08/23/2023 Family History Medical History Relation Name Comments Cancer Other Family history Hypertension Other Family history Stroke Other Family history Relation Name Status Comments Father Alive Mother Alive Other Family history Social History Tobacco Use Types Packs/Day Years Used Date Smoking Tobacco: Never Tobacco Cessation:Counseling Given: Not Answered Alcohol Use Standard Drinks/Week Comments Not Currently 0 (1 standard drink = 0.6 oz pur e alcohol) Sex and Gender Information Value Date Recorded Sex Assigned at Not on file Legal Sex Male 6:58 PM EDT Gender Identity Not on file Sexual Orientation Not on file Last Filed Vital Signs Vital Sign Reading Time Taken Comments Blood Pressure 108/64 05/31/2024 1:05 PM EST Pulse 68 03/07/2024 11:34 AM EST Temperature - - Respiratory Rate 16 08/25/2023 1:19 PM EDT Oxygen Saturation 98% 03/07/2024 11: 34 AM EST Inhaled Oxygen Concentration - - Weight 61.6 kg (135 lb 12.8 oz) 08/25/2023 1:19 PM EDT Height 157.5 cm (5' 2 ) 08/25/2023 1:19 PM EDT Body Mass Index 24.84 08/25/2023 1:19 PM EDT Plan of Treatment Health Maintenance Due Date Last Done Comments Medicare Annual Wellness (AWV) 1980 Influenza Vaccine (Season Ended) 2024 01/26/2018, 02/10/2017, 02/07/2015, Additional history [place] [address] MEDICAID [place] Care Teams Av Specialist Relationship Specialty Start Date End Date Unallocated, Noms Provider, [address] [place], [place] [id number] PCP - General 09/23/[address] [facility] [employer] [address] [place], [place] [id number] Referring Physician Orthopaedic Surgery 09/23/22
--- OUTSIDE RECORDS SUMMARY | 2024-09-26 13:10 | XMS_ITS | CCD ---
Author Organization [facility] Care Team Providers Care Transitional Care Nurse Name Role Phone FAM VENTURA Primary Care [...] Unavailsusan BURGER ., DR FIELDS Consulting Unavailable TROTTIMALKA [...] Mares DDS Unavailable Fam Ventura MD Unavailable [phone] Unallocated , [place] Provider Primary Care Provi [...] [amoxicillin-clav ulanate] Drug Allergy Unknown [facility] (17 sources) Phenytoin; Translations: [phenytoin] Drug Allergy 3 Unknown [facility] (20 sources) Promethazine; Translations: [promethazine] Drug Allergy [address] [facility] (12 sources) Phenytoin; Translations: [PHENYTOIN SODIUM EXTENDED] Drug Allergy 7 Unknown [facility] (12 sources) Amoxicillin-Pot Clavulanate; Translations: [AMOXICILLIN-POT CLAVULANATE] Propensity to adverse reactions to drug 7 Unknown [facility] (2 sources) 4-Aminobenzoic Acid; Translations: [PERTUSSIS VACCINES] Drug Allergy 5 [facility] Rep[facility] (1 source) Amoxicillin / Clavulanate Drug Allergy 4 [facility] (1 source) Levamisole Drug Allergy 4 [facility] (1 source) metroNIDAZOLE Drug Allergy [facility] (1 source) Phenytoin Drug Allergy 4 [facility] (1 source) remdesivir (investigational use) Drug allergy (disorder) [facility] (9 sources) Amoxicillin Drug Allergy 3 Unknown [facility] (7 sources) Clavulanate Drug Allergy 3 Unknown [facility] Medications Current Medications Medication Drug Class(es) Dates Sig (Normalized) Sig (Original) Acetaminophen (10 sources) Start: 12-16-2022 acetaminophen Refills(s) 0 Start Date: 12/16/22 Status: Ordered Start: 03-28-2020 Acetaminophen 650 mg Suppository Active 650 MG ID EVERY 4-6 HOURS as needed for Elevated Temp March 28, 2020 1:00am Start: 03-28-2020 Acetaminophen Active 650 MG ID EVERY 4-6 HOURS March 28, 2020 1:00am [...] 10:24am 10MG RECTAL GEL, PATIENT TAKES IT ID - wont let me save without route. Start: 03-28-2020 End: 07-06-2023 apply 10 mg rectal route every two hours Diazepam Active 5 MG PO Q2H July 06, 2023 10:24am 10MG RECTAL GEL, PATIENT TAKES IT ID - wont let me save without route. Start: 07-05-2015 diazepam 10 mg , Rectal, PRN Seizure, Refills(s) 0 Start Date: 07/05/15 Status: Ordered docusate sodium 100 mg oral capsule (16 sources) Start: 10-22-2021 take 1 capsule by mo [facility] twice daily as needed for [...] 2020 1:00am take 1 capsule by mo [facility] every twenty-four hours Docusate [...] Start: 02-23-2020 take 1 capsule by mo [facility] once daily in the morning [...] Ordered Normal saline (7 sources) Start: 07-05-2015 Hilham Saline Nasal Gel Nasal, TID, Refill(s) 0, Dry nasal passages Start Date: 07/05/15 Status: Ordered Hilham Saline Nasal Gel Nasally Active omeprazole 40 [...] bid, Prophylaxis Start Date: 07/05/15 Status: Ordered [id number] oral powder for reconstitution (1 source) Start: 023 [id number] oral powder for reconstitution Start Date: 12/16/22 Status: Ordered polyethylene glycol 3350 80113 mg powder for oral solution (4 sources) [...] Ordered sennosides, detention 8.6 mg oral tablet (3 sources) Start: [...] sources) Start: 06-28-2023 Sodium Chlorid e-Aloe Vera (Hilham Saline) gel Active 1 APPLIC TOPICAL Daily at bedtime as needed June 28, 2023 12:00am Start: 06-28-2023 Sodium Chlorid e-Aloe Vera (Hilham Saline) gel Active 1 APPLIC TOPICAL Daily [...] 06-30-2013 Chronic Other aftercare (5 sources) Other intermediate (current) drug therapy; Translations: [OTH NEURO INTENSIVIST PHYSICIAN CURRENT DRUG THERAPY] Onset: 3 Episodic Other [...] Range Facility Anesthesia Postprocedure Lucia wolff 06-12-2024 [employer] Driver Operator Authentication Interface Message Text Anesthesia Postoperative Assessment: [...] EVENTS: No notable events documented. Normal [facility] Anesthesia Preprocedure Chelsea longo 06-12-2024 [employer]ile Driver Operator Authentication Interface Message Text ASA: 3 No [...] were discussed with the patient and/or legal hospital sales representative. The risks, benefits and alternatives were reviewed. Questions regarding anesthesia were answered. Patient and/or legal hospital sales representative knows such anesthetics and procedures may be performed by Resident physicians, Certified Anesthesiologist Assistants, or Certified Nurse Anesthetists under the supervision of a physician. The patient /or the patient's legal hospital sales representative agree with the plan for anesthesia. Comment: Consent obtained from patient's mother over the phone. Also explained what to expect from anesthesia to patient's caregiver from care home MHPATFORM Social History Socioeconomic History Marital status: Single Social History Narrative Resident at [facility]. Mom is guardian CBC 06/02/2024 3:03 PM [...] Vitamin D3 125 mcg, DAILY Normal [facility] Anesthesia Transfer Of [facility] n 06-12-2024 Compressed [employer] Pile Driver Operator Authentication Interface Message Text Patient taken to [...] extraction; Surgeon: Ap Scott DDS; Location: [facility] Surgery [place]; Service: Dental Allergies: Promethazine, Amoxicillin-pot clavulanate, Pertussis [...] the report was received. ILIANA Clements [facility] Blood Attestationon 06-12-19 [employer]ile Driver Operator Authentication Interface Message Text Blood Attestation: REFUSAL OF BLOOD OR BLOOD COMPONENTS: The patient and/or legal hospital sales representative has been explained the need for transfusion of blood and/or blood components. The risks, benefits and alternatives have been explained. Questions concerning the transfusion of blood or blood components have been asked and answered. The patient and/or legal hospital sales representative have REFUSED TO CONSENT transfusion of blood or blood products. PER PATIENT'S MOTHER Normal [facility] Brief Operative Noteon 06-12 [employer] Driver Operator Authentication Interface Message Text Brief Operative Note [facility] OR 3 Parish Lopez 44 year old male Surgical Contact Serial Number: [id number] Preoperative Diagnosis: Pre-op Diagnosis * Caries [K02.9] Mental disability COPD Hyperthyroidism Seizures HLD GERD Postoperative Diagnosis: Mental disability COPD Hyperthyroidism Seizures HLD GERD Procedures: Full mouth x-rays [01694] Comprehensive Exam [[id number]] Dental prophylaxis [40789] Surgeon(s): Surgeon(s): Ap Scott DDS Staff: Fiscal Economist Nurse: Felisha Moore Anesthesia: General Anesthesiologist: Blake [...] Thompson DDS 06/12/2024 7:03 AM Normal [facility] OP Noteon 06-12-2024 [employer] Driver Operator Authentication Interface Message Text Operative Note P[facility] OR 3 Parish Lopez 44 year old male Surgical Contact Serial Number: [id number] Preoperative Diagnosis: Pre-op Diagnosis * Caries [K02.9] Mental disability COPD Hyperthyroidism Seizures HLD GERD Postoperative Diagnosis: Mental Disability COPD Hyperthyroidism Seizures HLD GERD Procedures: Full mouth x-rays [10367] Comprehensive Exam [[id number]] Dental prophylaxis [86920] Surgeon: Ap Scott DDS Hemodialysis Charge Nurse Surgeon: Hansel Burgess DDS; Beatris Thompson DMD [...] Thompson DDS 06/12/2024 7:07 AM Normal [facility] 06-12-2024 Compressed Air Pile Driver Operator Authentication Interface Message Text ----- Wednesday, June 12, 2024 at 8:41:56 AM ----- ----- Provider: [id number] - pA Adams DDS -- Clinic: [facility] ----- [facility], pt is ready for tx. [place], only scaling was done. __ Operative Note [facility] OR 3 Parish Lopez 44 year old male Surgical Contact Serial Number: [id number] Preoperative Diagnosis: Pre-op Diagnosis * Caries [K02.9] Mental disability COPD Hyperthyroidism Seizures HLD GERD Postoperative Diagnosis: Mental Disability COPD Hyperthyroidism Seizures HLD GERD Procedures: Full mouth x-rays [36616] Comprehensive Exam [[id number]] Dental prophylaxis [28648] Surgeon: Ap Scott DDS Hemodialysis Charge Nurse Surgeon: Hansel Burgess DDS; Beatris Thompson DMD [...] DDS -- Clinic: [facility] ----- Normal [facility] Telephone Encounteron 2024 [employer] Driver Operator Authentication Interface Message Text Informed Consent for dental surgery AND Anesthesia consent obtained and scanned into [employer]. Scheduled for surgery 06/12/2024. Normal [facility] Addendum Noteon 06-02-2024 [employer] Pile Driver Operator Authentication Interface Message Text Addended by: BOYD JOHNSON on: 06/02/2024 05:54 PM Modules accepted: Orders Normal [facility] BASIC METABOLIC PANELon - Anion gap [Moles/Vol] 18 mmol/L Normal 10-20 [facility] Comment on above: Performed By: #### C H8 ####[facility] [id number] [place], [place], Calcium [Mass/Vol] 10.5 mg/dL High 8.6-10.3 The [facility] Comment on above: Performed By: #### C H8 ####[facility] [id number] [place], [place], Chloride [Moles/Vol] 109 mmol/L High 98-107 [facility] Comment on above: Performed By: #### C H8 ####[facility] [id number] [place], [place], CO2 [Moles/Vol] 22 mmol/L Normal 21-31 [facility] Comment on above: Performed By: #### C H8 ####[facility] [id number] [place], [place], Creatinine [Mass/Vol] 0.61 mg/dL Low 0.70-1.30 [facility] Comment on above: Performed By: #### C H8 ####[facility] [id number] [place], [place], ESTIMATED GFR (CKD-EPI) 121 mL/min/1.73sqm Normal >=60 The [facility] Comment on above: Result Comment: 2020 [...] Inclusion of Race in Diagnosing Kidney Disease. [place] Journal of Kidney Diseases 202;79(2):268-88.e1. 2. N Engl J Med 1 Vol. 385 Issue 19 Pages [id number] Performed By: #### C H8 ####S PATHOLOGY [id number] [place], [place], Glucose [Mass/Vol] 126 mg/dL High 74-109 The [facility] Comment on above: Performed By: #### C H8 ####S PATHOLOGY [id number] [place], [place], Potassium [Moles/Vol] 4.8 mmol/L Normal 3.5-5.0 The [facility] Comment on above: Performed By: #### C H8 ####S PATHOLOGY [id number] [place], [place], Sodium [Moles/Vol] 144 mmol/L Normal 136-145 The [facility] Comment on above: Performed By: #### C H8 ####S PATHOLOGY [id number] [place], [place], Urea nitrogen [Mass/Vol] 14 mg/dL Normal 7-25 The [facility] Comment on above: Performed By: #### C H8 ####[facility] [id number] [place], [place], COMPLETE BLOOD COUNTon 06-02 Erythrocyte distribution width (RBC) [Ratio] 14.5 % Normal 11.5-14.5 The [facility] Comment on above: Performed By: #### C BC #### S PATHOLOGY LABORATORY [address] [place] [address], Hematocrit (Bld) [Volume fraction] 42.5 % Normal 41.0-53.0 The [facility] Comment on above: Performed By: #### C BC #### S PATHOLOGY LABORATORY [address] [place] [address], Hemoglobin (Bld) [Mass/Vol] 13.8 g/dL Low 13.9-16.3 [facility] Comment on above: Performed By: #### C BC #### [facility] [address] [place] [address], MCH (RBC) [Entitic mass] 30.7 pg Normal 26.0-34.0 The [facility] Comment on above: Performed By: #### C BC #### [facility] [address] [place] [address], MCHC (RBC) [Mass/Vol] 32.4 g/dL Normal 32.0-35.9 The [facility] Comment on above: Performed By: #### C BC #### [facility] [address] [place] [address], MCV (RBC) [Entitic vol] 95 fL Normal 80-100 The [facility] Comment on above: Performed By: #### C BC #### [facility] [address] [place] [address], Platelet mean volume (Bld) [Entitic vol] 9.3 fL Normal 7.5-11.2 The [facility] Comment on above: Performed By: #### C BC #### S PATHOLOGY LABORATORY [address] [place] [address], Platelets (Bld) [#/Vol] 419 10*3/uL High 150-400 The [facility] Comment on above: Performed By: #### C BC #### S PATHOLOGY LABORATORY [address] [place], [place], RBC (Bld) [#/Vol] 4.49 10*6/uL Low 4.50-5.90 [facility] Comment on above: Performed By: #### C BC #### S [facility] LABORATORY [address] [place] [address], WBC (Bld) [#/Vol] 7.0 10*3/uL Normal 4.5-11.5 [facility] Comment on above: Performed By: #### C #### [facility] [address] [place], [place], Patient Instructionson 06-02 [employer] Driver Operator Authentication Interface Message Text RECOMMENDATIONS: Patient was [...] before surgery Boyd Johnson MD Normal [facility] Progress Noteson 06-02-2024 [employer] Pile Driver Operator Authentication Interface Message Text Blood pressure 154/73, [...] extraction; Surgeon: Ap Scott DDS; Location: [facility] Surgery [place]; Service: Dental Pertinent Social History Reviewed Social [...] fever, chills, night sweats, and weight loss KNOWLEDGE MANAGEMENT ADVISOR: h/o Seizur (more content not included)... Normal [facility] THYROXINE (T4), FREEon 06-02 T4 F 0.70 ng/dL Normal 0.61-1.12 The [employer] [facility] Comment on above: Performed By: #### T MAICOL HS, T4 F #### [facility] [address] [place], [place], TSHon 06-02-2024 TSH 0.229 uIU/mL Low 0.450-5.330 [facility] Comment on above: Performed By: #### T MAICOL HS, T4 F #### [facility] [address] [place], [place], No Panel Informationon 05-31 [facility] Progress Noteson 04-25-2024 [employer] Pile Driver Operator Authentication Interface Message Text Parent/guardian/patie nt was contacted for PSE AND OR scheduled -- confirmed information with mom, also informed mom importance of receiving PSE call -- if not received surgery will be canceled. 06/12/2024 ----- Thursday, April 25, 2024 at 2:35:00 PM ----- ----- Provider: PEARL Ace, Dental-Educational Assistant -- Clinic: [place] ----- Normal [facility] No Panel Informationon 03-13 As in note [facility] [email or web address] [facility] Ambulatory Visit Summaryon 0 12-16-2022 Ambulatory [...] (oxcarbazepine 600 mg Tab) polyethylene glycol 3350 ([id number] oral powder for reconstitution) polyethylene glycol 3350 (polyethylene glycol 3350 17 gram packet) rifaximin (Xifaxan 550 mg oral tablet) senna (Senna 8.6 mg oral tablet) sodium chloride nasal (Hilham Saline Nasal Gel) tamsulosin Discharge Vitals Temperature [...] Application T (more content not included)... Normal [facility] Patient Educationon 12-17-19 23 Patient Education [...] provider. Document Revised: 08/14/2021 Document Reviewed: 08/14/2021 [employer] Patient Education ? 2022 [employer] Normal [facility] Physician Orderon 12-16-2022 Physician Order [id number] .[id number]:127 Normal [facility] RAD - Ultrasound Reporton RAD - Ultrasound Report [id number] .[id number]:127 Normal [facility] Urology Office/Clinic Noteon 12-16-2022 Urology Office/Clinic [...] of retractile testes. Pt currently resides in [facility]. CBC/CMP 08/01/22 1. Retractile testis [...] Eye-Both, QID atorvastatin, 10 mg, Oral, Daily Hilham Saline Nasal Gel, Nasal, TID azelastine nasal 137 mcg/inh spray, 2 spray(s), Nasal, As (more content not included)... Normal [facility] Comment on above: Result Comment: Elec [...] GUANAKITO MEADE Date: 2022-08-04 18:50 Normal [facility] AMMONIAon 08-02-2022 Ammonia (P) [Moles/Vol] 87 umol/L Critically high [facility] Comment on above: Performed By: #### B MP #### [facility] [address] [place] [address] [address] Deepak Greenfield AMMONIAon 08-01-2022 Ammonia (P) [Moles/Vol] 42 umol/L Critically high [facility] Comment on above: Performed By: #### Karishma Bajwa, CMP #### [facility] [address] [address] [address] Deepak Greenfield CBC W MANUAL DIFFon 08-02-19 23 ATYPICAL LYMPH # 0.41 103/ul Normal [facility] Comment on above: Performed By: #### M G, CMP #### [facility] [address] [place] [address] Dr. Deepak Greenfield ATYPICAL LYMPH % 7 % Normal [facility] Comment on above: Performed By: #### M G, CMP #### [facility] [address] [place] [address] Dr. Deepak Greenfield BAND # 0.0 103/ul Normal 0.0-0.3 [facility] Comment on above: Performed By: #### M G, CMP #### [facility] [address] [place] [address] Dr. Deepak Greenfield BAND % 0 % Normal 0-5 [facility] Comment on above: Performed By: #### M G, CMP #### [facility] [address] [place] [address] Dr. Deepak Greenfield BASOM # 0.00 103/ul Normal 0.00-0.10 [facility] Comment on above: Performed By: #### M G, CMP #### [facility] [address] [place] [address] Dr. Deepak Greenfield BASOM % 0.0 % Critically low 0.2-2.0 [facility] Comment on above: Performed By: #### M G, CMP #### [facility] [address] [place] [address] Dr. Deepak Greenfield BLAST # Normal [facility] Comment on above: Performed By: #### M G, CMP #### [facility] [address] [place] [address] Dr. Deepak Greenfield BLAST % Normal [facility] Comment on above: Performed By: #### M G, CMP #### [facility] [address] [place] [address] Dr. Deepak Greenfield CORRECTED WBC Normal 4.0-11.0 The [facility] Comment on above: Performed By: #### M G, CMP #### [facility] [address] [place] [address] Dr. Deepak Greenfield EOS # 0.06 103/ul Normal 0.00-0.70 [facility] Comment on above: Performed By: #### M G, CMP #### [facility] [address] [place] [address] [address] Deepak Greenfield EOS% 1.0 % Normal 0.9-7.0 [facility] Comment on above: Performed By: #### M G, CMP #### [facility] [address] [address] [address] Deepak Greenfield HCT 37.6 % Critically low 42.0-54.0 The [facility] Comment on above: Performed By: #### M G, CMP #### [facility] [address] [address] [address] Deepak Greenfield HGB 12.3 g/dl Critically low 14.0-18.0 The [facility] Comment on above: Performed By: #### M G, CMP #### [facility] [address] [address] [address] Deepak Greenfield LYMPHM # 1.91 103/ul Normal 1.20-3.80 [facility] Comment on above: Performed By: #### M G, CMP #### [facility] [address] [address] [address] Deepak Greenfield LYMPHM% 33.0 % Normal 20.5-60.0 [facility] Comment on above: Performed By: #### M G, CMP #### [facility] [address] [address] [address] Deepak Greenfield MCH 31.7 pg Normal 25.9-34.0 [facility] Comment on above: Performed By: #### M G, CMP #### [facility] [address] [address] [address] Deepak Greenfield MCHC 32.7 g/dl Normal 29.9-35.2 [facility] Comment on above: Performed By: #### M G, CMP #### [facility] [address] [address] [address] Deepak Greenfield MCV 96.9 fL Critically high 80.0-94.0 The [facility] Comment on above: Performed By: #### M G, CMP #### [facility] [address] [address] [address] Deepak Greenfield METAMYELOCYTE # Normal [facility] Comment on above: Performed By: #### M G, CMP #### [facility] [address] [address] [address] Deepak Greenfield METAMYELOCYTE % Normal [facility] Comment on above: Performed By: #### M G, CMP #### [facility] [address] [address] [address] Deepak Greenfield MONOM# 0.29 103/ul Critically low 0.30-0.80 [facility] Comment on above: Performed By: #### M G, CMP #### [facility] [address] [address] [address] Deepak Greenfield MONOM% 5.0 % Normal 1.7-12.0 [facility] Comment on above: Performed By: #### M G, CMP #### [facility] [address] [place] [address] Dr. Deepak Greenfield MPV 11.0 fL Normal 9.5-13.5 [facility] Comment on above: Performed By: #### M G, CMP #### [facility] [address] [place] [address] Dr. Deepak Greenfield MYELOCYTE # Normal [facility] Comment on above: Performed By: #### M G, CMP #### [facility] [address] [place] [address] Dr. Deepak Greenfield MYELOCYTE % Normal [facility] Comment on above: Performed By: #### M G, CMP #### [facility] [address] [place] [address] Dr. Deepak Greenfield NRBC Normal [facility] Comment on above: Performed By: #### M G, CMP #### [facility] [address] [place] [address] Dr. Deepak Greenfield PLT 208 103/ul Normal 150-450 [facility] Comment on above: Performed By: #### M G, CMP #### [facility] [address] [address] [address] Deepak Greenfield RBC 3.88 106/ul Critically low 4.70-6.10 [facility] Comment on above: Performed By: #### M G, CMP #### [facility] [address] [place] [address] Dr. Deepak Greenfield RDW 12.9 % Normal 11.0-15.0 [facility] Comment on above: Performed By: #### M G, CMP #### [facility] [address] [address] [address] Deepak Greenfield SEG # 3.13 103/ul Normal 1.40-6.50 [facility] Comment on above: Performed By: #### M G, CMP #### [facility] [address] [place] [address] Dr. Deepak Greenfield SEG % 54.0 % Normal 43.0-75.0 [facility] Comment on above: Performed By: #### M G, CMP #### [facility] [address] [place] [address] Dr. Deepak Greenfield STOMATOCYTES 3+ Normal [facility] Comment on above: Performed By: #### M G, CMP #### [facility] [address] [place] [address] Dr. Deepak Greenfield WBC 5.8 103/ul Normal 4.0-11.0 [facility] Comment on above: Performed By: #### M G, CMP #### [facility] [address] [place] [address] Dr. Deepak Greenfield PROF CHEM 8 (BAS METB)on Anion gap [Moles/Vol] 16.1 mmol/L Normal [facility] Comment on above: Performed By: #### B MP #### [facility] [address] [place] [address] Dr. Deepak Greenfield Calcium [Mass/Vol] 9.3 mg/dL Normal 8.5-10.1 [facility] Comment on above: Performed By: #### B MP #### [facility] [address] [place] [address] Dr. Deepak Greenfield Chloride [Moles/Vol] 105 mmol/L Normal 98-107 [facility] Comment on above: Performed By: #### B MP #### [facility] [address] [address] [address] Deepak Greenfield CO2 [Moles/Vol] 27.6 mmol/L Normal 21.0-32.0 [facility] Comment on above: Performed By: #### B MP #### [facility] [address] [address] [address] Deepak Greenfield Creatinine [Mass/Vol] 0.96 mg/dL Normal 0.70-1.30 [facility] Comment on above: Performed By: #### B MP #### [facility] [address] [address] [address] Deepak Greenfield EGFR-AF MALTESE >60 Normal >=60 [facility] Comment on above: Performed By: #### B MP #### [facility] [address] [address] [address] Deepak Greenfield EGFR-NON AF MALTESE >60 Normal >=60 [facility] Comment on above: Performed By: #### B MP #### [facility] [address] [address] [address] Deepak Greenfield Glucose [Mass/Vol] 160 mg/dL Critically high 74-106 [facility] Comment on above: Performed By: #### B MP #### [facility] [address] [address] [address] Deepak Greenfield Potassium [Moles/Vol] 3.7 mmol/L Normal 3.5-5.1 [facility] Comment on above: Performed By: #### B MP #### [facility] [address] [address] [address] Deepak Greenfield Sodium [Moles/Vol] 145 mmol/L Normal 136-145 [facility] Comment on above: Performed By: #### B MP #### [facility] [address] [address] [address] Deepak Greenfield Urea nitrogen [Mass/Vol] 5.0 mg/dL Critically low 7.0-18.0 [facility] Comment on above: Performed By: #### B MP #### [facility] [address] [place] [address] Dr. Deepak Greenfield Urea nitrogen/Creatinine [Mass ratio] 5.2 mg/mg Normal [facility] Comment on above: Performed By: #### B MP #### [facility] [address] [address] Dr. Deepak Greenfield AMMONIAon 07-31-2022 Ammonia (P) [Moles/Vol] 94 umol/L Critically high 11-32 [facility] Comment on above: Performed By: #### M G, CMP #### [facility] [address] [place] [address] Dr. Deepak Greenfield CBC AUTO DIFFon 07-31-2022 BASO # 0.0 103/ul Normal 0.0-0.1 [facility] Comment on above: Performed By: #### B MP #### [facility] [address] [place] [address] Dr. Deepak Greenfield Basophils/100 WBC (Bld) 0.1 % Critically low 0.2-2.0 [facility] Comment on above: Performed By: #### B MP #### [facility] [address] [place] [address] Dr. Deepak Greenfield EO # 0.0 103/ul Normal 0.0-0.7 [facility] Comment on above: Performed By: #### B MP #### [facility] [address] [place] [address] Dr. Deepak Greenfield Eosinophils/100 WBC (Bld) 0.0 % Critically low 0.9-7.0 [facility] Comment on above: Performed By: #### B MP #### [facility] [address] [place] [address] Dr. Deepak Greenfield Erythrocyte distribution width (RBC) [Ratio] 13.1 % Normal 11.0-15.0 [facility] Comment on above: Performed By: #### B MP #### [facility] [address] [place] [address] Dr. Deepak Greenfield Hematocrit (Bld) [Volume fraction] 32.4 % Critically low 42.0-54.0 [facility] Comment on above: Performed By: #### B MP #### [facility] [address] [address] [address] Deepak Greenfield Hemoglobin (Bld) [Mass/Vol] 10.9 g/dL Critically low 14.0-18.0 [facility] Comment on above: Performed By: #### B MP #### [facility] [address] [address] [address] Deepak Greenfield IG # 0.02 10e3/ul Normal 0.00-0.03 [facility] Comment on above: Performed By: #### B MP #### [facility] [address] [place] [address] Dr. Deepak Greenfield IG % 0.3 % Normal 0.0-0.5 [facility] Comment on above: Performed By: #### B MP #### [facility] [address] [place] [address] Dr. Deepak Greenfield LYMPH # 2.7 103/ul Normal 1.2-3.8 [facility] Comment on above: Performed By: #### B MP #### [facility] [address] [place] [address] Dr. Deepak Greenfield Lymphocytes/100 WBC (Bld) 38.9 % Normal 20.5-60.0 [facility] Comment on above: Performed By: #### B MP #### [facility] [address] [place] [address] Dr. Deepak Greenfield MANUAL DIFF REQ NO Normal [facility] Comment on above: Performed By: #### B MP #### [facility] [address] [place] [address] Dr. Deepak Greenfield MCH (RBC) [Entitic mass] 32.3 pg Normal 25.9-34.0 [facility] Comment on above: Performed By: #### B MP #### [facility] [address] [place] [address] Dr. Deepak Greenfield MCHC (RBC) [Mass/Vol] 33.6 g/dL Normal 29.9-35.2 [facility] Comment on above: Performed By: #### B MP #### [facility] [address] [address] [address] Deepak Greenfield MCV (RBC) [Entitic vol] 96.1 fL Critically high 80.0-94.0 [facility] Comment on above: Performed By: #### B MP #### [facility] [address] [address] [address] Deepak Greenfield MONO # 0.3 103/ul Normal 0.3-0.8 [facility] Comment on above: Performed By: #### B MP #### [facility] [address] [address] [address] Deepak Greenfield Monocytes/100 WBC (Bld) 4.9 % Normal 1.7-12.0 [facility] Comment on above: Performed By: #### B MP #### [facility] [address] [address] [address] Deeapk Greenfield NEUT # 3.9 103/ul Normal 1.4-6.5 [facility] Comment on above: Performed By: #### B MP #### [facility] [address] [address] [address] Deepak Greenfield Neutrophils/100 WBC (Bld) 55.8 % Normal 43.0-75.0 [facility] Comment on above: Performed By: #### B MP #### [facility] [address] [address] [address] Deepak Greenfield Platelet mean volume (Bld) [Entitic vol] 9.7 fL Normal 9.5-13.5 [facility] Comment on above: Performed By: #### B MP #### [facility] [address] [address] [address] Deepak Greenfield PLT 296 103/ul Normal 150-450 [facility] Comment on above: Performed By: #### B MP #### [facility] [address] [address] [address] Deepak Greenfield RBC 3.37 106/ul Critically low 4.70-6.10 [facility] Comment on above: Performed By: #### B MP #### [facility] [address] [place] [address] Dr. Deepak Greenfield WBC 7.0 103/ul Normal 4.0-11.0 [facility] Comment on above: Performed By: #### B MP #### [facility] [address] [place] [address] Dr. Deepak Greenfield PROF CHEM 8 (BAS METB)on Anion gap [Moles/Vol] 14.9 mmol/L Normal [facility] Comment on above: Performed By: #### C BC #### [facility] [address] [place] [address] Dr. Deepak Greenfield Calcium [Mass/Vol] 8.8 mg/dL Normal 8.5-10.1 [facility] Comment on above: Performed By: #### C BC #### [facility] [address] [place] [address] Dr. Deepak Greenfield Chloride [Moles/Vol] 105 mmol/L Normal 98-107 [facility] Comment on above: Performed By: #### C BC #### [facility] [address] [place] [address] Dr. Deepak Greenfield CO2 [Moles/Vol] 26.4 mmol/L Normal 21.0-32.0 [facility] Comment on above: Performed By: #### C BC #### [facility] [address] [place] [address] Dr. eDepak Greenfield Creatinine [Mass/Vol] 0.70 mg/dL Normal 0.70-1.30 [facility] Comment on above: Performed By: #### C BC #### [facility] [address] [place] [address] Dr. Deepak Greenfield EGFR-AF MALTESE >60 Normal >=60 [facility] Comment on above: Performed By: #### C BC #### [facility] [address] [place] [address] Dr. Deepak Greenfield EGFR-NON AF MALTESE >60 Normal >=60 [facility] Comment on above: Performed By: #### C BC #### [facility] [address] [place] [address] Dr. Deepak Greenfield Glucose [Mass/Vol] 129 mg/dL Critically high 74-[address] [facility] Comment on above: Performed By: #### C BC #### [facility] [address] [place] [address] Dr. Deepak Greenfield Potassium [Moles/Vol] 4.3 mmol/L Normal 3.5-5.1 [facility] Comment on above: Performed By: #### C BC #### [facility] [address] [place] [address] Dr. Deepak Greenfield Sodium [Moles/Vol] 142 mmol/L Normal 136-145 [facility] Comment on above: Performed By: #### C BC #### [facility] [address] [place] [address] Dr. Deepak Greenfield Urea nitrogen [Mass/Vol] 6.0 mg/dL Critically low 7.0-18.0 [facility] Comment on above: Performed By: #### C BC #### [facility] [address] [place] [address] Dr. Deepak Greenfield Urea nitrogen/Creatinine [Mass ratio] 8.6 mg/mg Normal [facility] Comment on above: Performed By: #### C BC #### [facility] [address] [place] [address] Dr. Deepak Greenfield AMMONIAon 07-30-2022 Ammonia (P) [Moles/Vol] 64 umol/L Critically high 11-32 [facility] Comment on above: Performed By: #### C BC #### [facility] [address] [place] [address] Dr. Deepak Greenfield CBC AUTO DIFFon 07-30-2022 BASO # 0.0 103/ul Normal 0.0-0.1 [facility] Comment on above: Performed By: #### I NFLUAB #### [facility] [address] [place] [address] Dr. Deepak Greenfield Basophils/100 WBC (Bld) 0.0 % Critically low 0.2-2.0 [facility] Comment on above: Performed By: #### I NFLUAB #### [facility] [address] [place] [address] Dr. Deepak Greenfield EO # 0.0 103/ul Normal 0.0-0.7 [facility] Comment on above: Performed By: #### I NFLUAB #### [facility] [address] [place] [address] Dr. Deepak Greenfield Eosinophils/100 WBC (Bld) 0.0 % Critically low 0.9-7.0 [facility] Comment on above: Performed By: #### I NFLUAB #### [facility] [address] [place] [address] Dr. Deepak Greenfield Erythrocyte distribution width (RBC) [Ratio] 13.1 % Normal 11.0-15.0 [facility] Comment on above: Performed By: #### I NFLUAB #### [facility] [address] [place] [address] Dr. Deepak Greenfield Hematocrit (Bld) [Volume fraction] 31.4 % Critically low 42.0-54.0 [facility] Comment on above: Performed By: #### I NFLUAB #### [facility] [address] [place] [address] Dr. Deepak Greenfield Hemoglobin (Bld) [Mass/Vol] 10.5 g/dL Critically low 14.0-18.0 [facility] Comment on above: Performed By: #### I NFLUAB #### [facility] [address] [place] [address] Dr. Deepak Greenfield IG # 0.01 10e3/ul Normal 0.00-0.03 [facility] Comment on above: Performed By: #### I NFLUAB #### [facility] [address] [place] [address] Dr. Deepak Greenfield IG % 0.2 % Normal 0.0-0.5 [facility] Comment on above: Performed By: #### I NFLUAB #### [facility] [address] [place] [address] Dr. Deepak Greenfield LYMPH # 1.5 103/ul Normal 1.2-3.8 [facility] Comment on above: Performed By: #### I NFLUAB #### [facility] [address] [place] [address] Dr. Deepak Greenfield Lymphocytes/100 WBC (Bld) 27.5 % Normal 20.5-60.0 [facility] Comment on above: Performed By: #### I NFLUAB #### [facility] [address] [place] [address] Dr. Deepak Greenfield MANUAL DIFF REQ NO Normal [facility] Comment on above: Performed By: #### I NFLUAB #### [facility] [address] [place] [address] Dr. Deepak Greenfield MCH (RBC) [Entitic mass] 32.4 pg Normal 25.9-34.0 [facility] Comment on above: Performed By: #### I NFLUAB #### [facility] [address] [place] [address] Dr. Deepak Greenfield MCHC (RBC) [Mass/Vol] 33.4 g/dL Normal 29.9-35.2 [facility] Comment on above: Performed By: #### I NFLUAB #### [facility] [address] [place] [address] Dr. Deepak Greenfield MCV (RBC) [Entitic vol] 96.9 fL Critically high 80.0-94.0 [facility] Comment on above: Performed By: #### I NFLUAB #### [facility] [address] [place] [address] Dr. Deepak Greenfield MONO # 0.2 103/ul Critically low 0.3-0.8 [facility] Comment on above: Performed By: #### I NFLUAB #### [facility] [address] [place] [address] Dr. Deepak Greenfield Monocytes/100 WBC (Bld) 2.9 % Normal 1.7-12.0 [facility] Comment on above: Performed By: #### I NFLUAB #### [facility] [address] [place] [address] Dr. Deepak Greenfield NEUT # 3.8 103/ul Normal 1.4-6.5 [facility] Comment on above: Performed By: #### I NFLUAB #### [facility] [address] [address] [address] Deepak Greenfield Neutrophils/100 WBC (Bld) 69.4 % Normal 43.0-75.0 [facility] Comment on above: Performed By: #### I NFLUAB #### [facility] [address] [address] [address] Deepak Greenfield Platelet mean volume (Bld) [Entitic vol] 9.4 fL Critically low 9.5-13.5 [facility] Comment on above: Performed By: #### I NFLUAB #### [facility] [address] [address] [address] Deepak Greenfield PLT 256 103/ul Normal 150-450 [facility] Comment on above: Performed By: #### I NFLUAB #### [facility] [address] [address] [address] Deepak Greenfield RBC 3.24 106/ul Critically low 4.70-6.10 [facility] Comment on above: Performed By: #### I NFLUAB #### [facility] [address] [id number] Deepak Greenfield WBC 5.5 103/ul Normal 4.0-11.0 [facility] Comment on above: Performed By: #### I NFLUAB #### [facility] [address] [address] [address] Deepak Greenfield Coding Summary.on 07-30-2022 Coding Summary. CD:[id number] W w+PGhlYWQ+HR6VYXHmW88 ubXWkaA9bR4BIPUyFCqzt KCOSIGxQYmEvriQfKV0ca XNjZXJu IC8+YI0bNRYlFmilnGFwg 1H2dCH7T88tbt4zQMjawQ X7XBScJdFidomet1tqjPo 6IDcuNmluOyBt WHDjiC81IWS2kQ57Bb72e RLsoXIjv8eciKs9CzInQQ PaRLH5uVeeWDqjt2UdNXG iV18cgUFma6Z4 XLNrjKgdqTOqVmJoeWE9s T7nDOjsroohg5ofczolZk l6qq28vRTdu6X4eTS6N4G orgV6MYChzYXr UzcjrWTZhE9dnvyou9jvg hltKmDkUONdOLn4ZTh8DZ UdpYacWrLkPC51VIB2OWU qltDrK7MuBTFp yPclSiS7e6W8Vh3ME0KMU fnxU8MMLNUPPOgjsFG+PC 55ir98U4FgPauwPcg0MTL pESZ4sAM4aD2m ABHjITjua3R7dME2C1Rnj sPmph6ll3xoDFAmPEaeQ5 3phMLjy8M8CQSsiEJ5RYX rqJyrOpGddD02 Oyc+LQVqhZbns7GiQedvy 3bsl9ausIh2SpozIZTmin AevBzfPCH7y9CgKt7mOBF yrCG9mGE3qK7s WhJmRfV6VPorJ260IiFpv EYuBgbfA03jN3JmvRW+PH HmChi5AFFxcFmqMR7tF6S hZGRpbmctbGVm nPjpAR7qDHCksntyRXXic E9lHIMpV5v7MhUgAzE6DN gnV8VkYHPxciohOq50jI6 xSoHhNhA0LJgj W0EiufO3RWKsyQNlKPrvE QH3K63ik2G7RIWdZWLoXG V4qQM3kS2psFxifoovwPP mdDsgdmVydGlj HQwaHFbeO612USHibGzoO kNvZGluZyBEYXRlOiAgMD QvMTMvMjAyMzwvdGQ+PHR pQJP5kRffKKBi lYJcTDspKc4nwRevkYzwT O9hJVYwsesjPMUaoL7bDR WwnLUleFcxKW4nMJLhqtn fd542HjJsCZP2 RGGdnXXcG2SnqF9qZhYeB JHdADAtN0SieHOjWOgzV7 07RHrcLaU6RLPahpXqX0O sLWFsaWduOiB0 g6F5Sk8Xc3QmebieR3Rvq ULiBqVlBrnoXRr3U9RkSf wvdHI+UI99IBLeHT17RBh 8RYR5fMmxVBfl MQDmO6JmzV4mPeOxJZAcZ GRkOyc+PHRhYmxlIHdpZH RoPScxMDAlJyBzdHlsZT0 lNy9fWMEmHYTz bXewgNIbZhDpc8dfVNPyO MqjUC3gjWiiX4SngRD8NW Oyc4f4Rr48Y55oX3WzmGQ +UFKnuWU9nVR3 vG8pMfKrPnC7KKuxX096M eHekWRiStrzg3wnr2cpoI s2NjG7LIUkdqPpeGbkDRH 6l6FeTw44A15u IHdpZHRoPSIxNSUiIHZhb Monir6zpC5fGv0+PGNvbC D8hEL4kV3tVfCdOaF8TNb tO083IoZhcELz Tzxzy0hjx0ctmHy1YpMnA VRvtuXrhGdzIBK1x2XwDg 50P5GlcSxfd1PpNrb1oc8 5nNJwh2C1oTS0 C8KnOXReaehypKKprOyjR M8jAHVfteexMYNvuX8rGM LsW4a3OkMxJwY3SNfwO5L vfbR4FHMitCXj PHDavHMIkS5oqrcjp9kqq znqTeHkHQTcXBh1FOy5XA ScaRvzElEgBII7DgY1JUM 3dXDobG3gvQxp khyhvD9fDrk+ZTE1wTTno AEMHE7lPafczDQ+PHRkIH H8fZgfQMdiDSGvsR7pIXV lG2q1FwSyGgV8 QPtsN9DujqY9DNFqqUVpT GBrwGNVjF0lxzznq1poxa gfUtAlRQKvRZp3SNm0MNC saWduOiBsZWZ0 DiR4BAC4dAWruP7djWgwy heaxQ7wFhk+QmlydGggRG Z0JQc6U2XqYjc9CNDnbBj bBM9siOZvAWxt Dr1laEdseYyfQV9rDYMik vqtb589RlCok8tuYOKplS RlZSlgZXN1K21bn9G8OYV qQLKmDIE9jDC8 dZ4inFzsfefnvYIriEywn hMeaRgfGMilIPjxW705UV NrkOzlStWmWBt7D8EyFyk 0TYKjmDzhWN0m yZDqIHmgLn6lsRizmDeyS V2vPLFnfvpmt320DgDpd8 xrDVPirOLvOIzvAFF3A13 ld0X9MNTlPXTo RAK9dXE2qX9kfDszungtb GVmdDsgdmVydGljYWwtYW kkM977OEJhlVydNcGuqSc 6D0YwIyr8SHYt sGanLE9rcRSkXCpbNm1th RvfuPhpOT2lNDQpwuytk7 85IwSox6utTGNvbOHtCBe xHKR7R16by9Y7 OHVfREPtUCW4dLX1gI4uj GlnbjogbGVmdDsgdmVydG rdRRowOWdeM919VBUobDd nPlBhdGllbnQg NImgRGd4C5ShLgbnwEC+P U26WYKdOR15uBOnbHDdu8 hapAy2HgUbBAAgCVC0yJh yGYfig9QzRXVa Z52ttUHut0Y3SEYpgIbip DKiJaRalWG6dC5qXCjzcj wdo5snbqemYhsyu1nmyq4 8uG14R71qDDlf ZHRoPSIzMCUiIHZhbGlnb q4emZ1kLa0+UQRwjUQ1sG E3eR9uBNUqDxE4IWcpO06 9InRvcCIvPjxj i8oha9uctLf7GgZ7IVNvl sQkkCtrXKY0s3EdSm86X7 9sIHdpZHRoPSIyMCUiIHZ wyUmdvr4wxB8h Ii8+XAZepTE9sKT0vX8uZ lSvPsY6LSjwZ511LpZgmL BbBvlqQ83lB5CnyPM+PHR aUty1TWLyuHgd YM5clXHmRJheEu5tNZZ7U iDlYkOpKUucX6ArGGMhfc tduzynlDV0ZNNyLUOkeD9 2Kn8tdYstWWFl wCRZgD9acowln3vfeeavW dYcQELhDCw7NKn1XXKvpT pfBzVkFBE4BkA6EMO4zCX mcR8ucLrfbali fC3tO9ClISYykssvAj86w Z8wBpPjMeU8WZxdZlr+U0 2DQKTWUAAJREFAViHNGH1 3VB28tYDda1X8 vNQ1H7HbCPJshgijduhis XM2BVZsDHXqzR63lAXpFH wpYk0op9Q4o407JWHmPXO vtK72Xr7qyXcm MQIfdMNOiY6ukmdsq2yiu chtQdAkYSZbLQk2WZy2CS EomNgyOcOgGLG8DwB3EOM 5sDWbrX7yyAmq mrregH9pIbc+MTAvMTYvM Pl7WPajdOT+RKVoBLM2gN xaOOogKVRftV6lMWDhF2m 2TqTeRwR8SUzh K5VgZKXlxdvrUg81cN4lY nBaFrE1WJqlY4QtqbO7CR OfzAVvAAvsEWG4H58ya5T 1QAIwZQPyTXM7 yFY6vU5cwLqmcoqtePWzb DsgdmVydGljYWwtYWxpZ2 46IHRvcDsnPjQyIFllYXJ gUD24DB03yUPh o4I3nUQ2M1FrYJIefvnrj htxaEQ1WBFpHDOsmN49uQ XjYIcoQl7cq9M0p808MNF zWYUmwF77Gr0w tIgvUNQtjYCUhG2btgdnb 8lntxesObHkYWSfSTp0MF c5CEYjbTybYmZdWAK1SqA 5AAE8cGUazJ8e eIhkkgbktI4gGjc+TWFsZ TwvdGQ+ZVFsTOL7gZmkHH vrJSVlcS6pBKQlB0y2AeS cUsB2OZojU5Bv BQAaprktCa91mR1xZeWaQ jV6CTqcO5VnsaM8ZNHdoD ZkIPpcNRO1Q16ml6J9QNU uMFTyABE6tBD8 iW8itYedrmubjEQgfBrly oNypTqqUYdeEUloH170GA BqhXvrGc07rXGpuIefcdG 5U8CzVbonaUN+ KL71QFCiGJ68aTAwmPPkx 5ulzTa3RaDlKIRdBPB3pN nwCQjqp7RiSSZtQ07baZO sq2L0NGNheBfc lPYeFzMsfFT4fW3xJWftb khju3qlbjelEsegf0hofj 49dY48X51zTMbaYDTrNTV zMCUiIHZhbGln je7agP1vDp2+JIEwnHA3a YE6mR7wCzZfStX0QYetQ9 89PlSzxJFaHkmzy6nou0k uqHg6AiFnYPSm kbZgxRatLXW5u3UwEk30E 29sIHdpZHRoPSIyMCUiIH StwHkdqy8jlM7pAd5+PC9 qh8vkqw34oN31 dHI+TXCrPUZ8mBhwKGepO UOgjF0wSAseLbR7RPSiPq CadY85wNUeLTovFn5saQw fuTglPY5gEDXq cbxvs008JlRti9mgKFByy ARcKUxwOXD6N99cg2Z8QF EqDCSyZFG7zMQ8mV8brTc nbjogbGVmdDsg wkOcvJomCWqsIIhqL790T WDwpOzoZpUrhTTkR8tafe LFPV2jYzgozLV+PHRkIHN 0eWxlPSdwYWRk cG7pRZJkV8m1DiScTbE6R IccB5AwcwY7VTDglTHuAC PpnUHIvT6rysemd7ruzvu gIzAwMDAwMDt0 RIj2HFJhlFptIwPdSCS1Z wR0NMF5iUOkxI4dyBibdj tgjC8rSjl+RklOOjwvdGQ +QANyWQS9vUyk LLigRZGllA1rJTNsH2m3T sGrBkL1DHxrM6PggtX2SV VkfWAtPOCkoTAQiI9ldia iu6isfkgySmYr UHNtRRb2XJi0SNPgbBrpJ tOdRPS5OcE1UQP4yZEnnO 2ciJgbysdfuJ9dFyx+TVJ OOjwvdGQ+PHRk RVX1hNvfYXopVEAmmT7kL OSpL5s8UlOpSzV1YIsxO9 FvhiN1QOXzeJCgCDDeiSE MpO2jpsdda6mp vcnrOgAnVGTbGXl6AUb3J SGseKuuTrLqMBP0GrC9BG S4vFAeaG1cpNgxbtpmcB8 wOyc+ALE8ISM7 DU05VS24D5ZfAygdcCQcc +PHRhYmxlIHdpZHRoPS tlMDZqXoDikEriMR7sGq7 yZGVyLWNvbGxh cHNlOiBj (more content not included)... Normal [facility] PROF CHEM 8 (BAS METB)on Anion gap [Moles/Vol] 8.3 mmol/L Normal [facility] Comment on above: Performed By: #### I NFLUAB #### [facility] [address] [address] [address] Deepak Greenfield Calcium [Mass/Vol] 8.5 mg/dL Normal 8.5-10.1 [facility] Comment on above: Performed By: #### I NFLUAB #### [facility] [address] [address] [address] Deepak Greenfield Chloride [Moles/Vol] 104 mmol/L Normal 98-107 [facility] Comment on above: Performed By: #### I NFLUAB #### [facility] [address] [place] [address] Dr. Deepak Greenfield CO2 [Moles/Vol] 30.0 mmol/L Normal 21.0-32.0 [facility] Comment on above: Performed By: #### I NFLUAB #### [facility] [address] [place] [address] Dr. Deepak Greenfield Creatinine [Mass/Vol] 0.46 mg/dL Critically low 0.70-1.30 [facility] Comment on above: Performed By: #### I NFLUAB #### [facility] [address] [place] [address] Dr. Deepak Greenfield EGFR-AF MALTESE >60 Normal >=60 [facility] Comment on above: Performed By: #### I NFLUAB #### [facility] [address] [place] [address] Dr. Deepak Greenfield EGFR-NON AF MALTESE >60 Normal >=60 [facility] Comment on above: Performed By: #### I NFLUAB #### [facility] [address] [place] [address] Dr. Deepak Greenfield Glucose [Mass/Vol] 152 mg/dL Critically high 74-106 [facility] Comment on above: Performed By: #### I NFLUAB #### [facility] [address] [place] [address] Dr. Deepak Greenfield Potassium [Moles/Vol] 4.3 mmol/L Normal 3.5-5.1 [facility] Comment on above: Performed By: #### I NFLUAB #### [facility] [address] [address] [address] Deepak Greenfield Sodium [Moles/Vol] 138 mmol/L Normal 136-145 [facility] Comment on above: Performed By: #### I NFLUAB #### [facility] [address] [place] [address] Dr. Deepak Greenfield Urea nitrogen [Mass/Vol] 9.0 mg/dL Normal 7.0-18.0 [facility] Comment on above: Performed By: #### I NFLUAB #### [facility] [address] [place] [address] Dr. Deepak Greenfield Urea nitrogen/Creatinine [Mass ratio] 19.6 mg/mg Normal [facility] Comment on above: Performed By: #### I NFLUAB #### [facility] [address] [place] [address] Dr. Deepak Greenfield AMMONIAon 07-29-2022 Ammonia (P) [Moles/Vol] 69 umol/L Critically high 11-32 [facility] Comment on above: Performed By: #### A MM #### [facility] [address] [place] [address] Dr. Deepak Greenfield CBC AUTO DIFFon 07-29-2022 BASO # 0.0 103/ul Normal 0.0-0.1 [facility] Comment on above: Performed By: #### M G, CMP #### [facility] [address] [place] [address] Dr. Deepak Greenfield Basophils/100 WBC (Bld) 0.2 % Normal 0.2-2.0 [facility] Comment on above: Performed By: #### M G, CMP #### [facility] [address] [place] [address] Dr. Deepak Greenfield EO # 0.0 103/ul Normal 0.0-0.7 [facility] Comment on above: Performed By: #### M G, CMP #### [facility] [address] [place] [address] Dr. Deepak Greenfield Eosinophils/100 WBC (Bld) 0.0 % Critically low 0.9-7.0 [facility] Comment on above: Performed By: #### M G, CMP #### [facility] [address] [address] Dr. Deepak Greenfield Erythrocyte distribution width (RBC) [Ratio] 13.2 % Normal 11.0-15.0 [facility] Comment on above: Performed By: #### M G, CMP #### [facility] [address] [place] [address] Dr. Deepak Greenfield Hematocrit (Bld) [Volume fraction] 33.1 % Critically low 42.0-54.0 [facility] Comment on above: Performed By: #### M G, CMP #### [facility] [address] [place] [address] Dr. Deepak Greenfield Hemoglobin (Bld) [Mass/Vol] 10.8 g/dL Critically low 14.0-18.0 [facility] Comment on above: Performed By: #### M G, CMP #### [facility] [address] [place] [address] Dr. Deepak Greenfield IG # 0.04 10e3/ul Critically high 0.00-0.03 [facility] Comment on above: Performed By: #### M G, CMP #### [facility] [address] [place] [address] Dr. Deepak Greenfield IG % 0.5 % Normal 0.0-0.5 [facility] Comment on above: Performed By: #### M G, CMP #### [facility] [address] [place] [address] Dr. Deepak Greenfield LYMPH # 1.1 103/ul Critically low 1.2-3.8 [facility] Comment on above: Performed By: #### M G, CMP #### [facility] [address] [place] [address] Dr. Deepak Greenfield Lymphocytes/100 WBC (Bld) 13.6 % Critically low 20.5-60.0 [facility] Comment on above: Performed By: #### M G, CMP #### [facility] [address] [place] [address] Dr. Deepak Greenfield MANUAL DIFF REQ NO Normal [facility] Comment on above: Performed By: #### M G, CMP #### [facility] [address] [place] [address] Dr. Deepak Greenfield MCH (RBC) [Entitic mass] 32.2 pg Normal 25.9-34.0 [facility] Comment on above: Performed By: #### M G, CMP #### [facility] [address] [place] [address] Dr. Deepak Greenfield MCHC (RBC) [Mass/Vol] 32.6 g/dL Normal 29.9-35.2 [facility] Comment on above: Performed By: #### M G, CMP #### [facility] [address] [place] [address] Dr. Deepak Greenfield MCV (RBC) [Entitic vol] 98.8 fL Critically high 80.0-94.0 [facility] Comment on above: Performed By: #### M G, CMP #### [facility] [address] [place] [address] Dr. Deepak Greenfield MONO # 0.3 103/ul Normal 0.3-0.8 [facility] Comment on above: Performed By: #### M G, CMP #### [facility] [address] [place] [address] Dr. Deepak Greenfield Monocytes/100 WBC (Bld) 3.8 % Normal 1.7-12.0 [facility] Comment on above: Performed By: #### M G, CMP #### [facility] [address] [place] [address] Dr. Deepak Greenfield NEUT # 6.7 103/ul Critically high 1.4-6.5 [facility] Comment on above: Performed By: #### M G, CMP #### [facility] [address] [place] [address] Dr. Deepak Greenfield Neutrophils/100 WBC (Bld) 81.9 % Critically high 43.0-75.0 [facility] Comment on above: Performed By: #### M G, CMP #### [facility] [address] [address] [address] Deepak Greenfield Platelet mean volume (Bld) [Entitic vol] 9.6 fL Normal 9.5-13.5 [facility] Comment on above: Performed By: #### M G, CMP #### [facility] [address] [address] [address] Deepak Greenfield PLT 257 103/ul Normal 150-450 [facility] Comment on above: Performed By: #### M G, CMP #### [facility] [address] [address] [address] Deepak Greenfield RBC 3.35 106/ul Critically low 4.70-6.10 [facility] Comment on above: Performed By: #### M G, CMP #### [facility] [address] [place] [address] Dr. Deepak Greenfield WBC 8.2 103/ul Normal 4.0-11.0 [facility] Comment on above: Performed By: #### M G, CMP #### [facility] [address] [place] [address] Dr. Deepak Greenfield LACTATE/LACTIC ACIDon 2022 Lactate [Moles/Vol] 1.1 mmol/L Normal 0.4-2.0 [facility] Comment on above: Performed By: #### I NFLUAB #### [facility] [address] [place] [address] Dr. Deepak Greenfield PROF CHEM 8 (BAS METB)on Anion gap [Moles/Vol] 9.4 mmol/L Normal [facility] Comment on above: Performed By: #### I NFLUAB #### [facility] [address] [place] [address] Dr. Deepak Greenfield Calcium [Mass/Vol] 8.0 mg/dL Critically low 8.5-10.1 [facility] Comment on above: Performed By: #### I NFLUAB #### [facility] [address] [place] [address] Dr. Deepak Greenfield Chloride [Moles/Vol] 105 mmol/L Normal 98-107 [facility] Comment on above: Performed By: #### I NFLUAB #### [facility] [address] [address] [address] Deepak Greenfield CO2 [Moles/Vol] 30.7 mmol/L Normal 21.0-32.0 [facility] Comment on above: Performed By: #### I NFLUAB #### [facility] [address] [address] [address] Deepak Greenfield Creatinine [Mass/Vol] 0.66 mg/dL Critically low 0.70-1.30 [facility] Comment on above: Performed By: #### I NFLUAB #### [facility] [address] [address] [address] Deepak Greenfield EGFR-AF MALTESE >60 Normal >=60 [facility] Comment on above: Performed By: #### I NFLUAB #### [facility] [address] [place] [address] Dr. Deepak Greenfield EGFR-NON AF MALTESE >60 Normal >=60 [facility] Comment on above: Performed By: #### I NFLUAB #### [facility] [address] [address] [address] Deepak Greenfield Glucose [Mass/Vol] 177 mg/dL Critically high 74-106 [facility] Comment on above: Performed By: #### I NFLUAB #### [facility] [address] [address] [address] Deepak Greenfield Potassium [Moles/Vol] 4.1 mmol/L Normal 3.5-5.1 [facility] Comment on above: Performed By: #### I NFLUAB #### [facility] [address] [address] [address] Deepak Greenfield Sodium [Moles/Vol] 141 mmol/L Normal 136-145 [facility] Comment on above: Performed By: #### I NFLUAB #### [facility] [address] [address] [address] Deepak Greenfield Urea nitrogen [Mass/Vol] 9.0 mg/dL Normal 7.0-18.0 [facility] Comment on above: Performed By: #### I NFLUAB #### [facility] [address] [place] [address] Dr. Deepak Greenfield Urea nitrogen/Creatinine [Mass ratio] 13.6 mg/mg Normal [facility] Comment on above: Performed By: #### I NFLUAB #### [facility] [address] [place] [address] Dr. Deepak Greenfield AMMONIAon 07-28-2022 Ammonia (P) [Moles/Vol] 68 umol/L Critically high [facility] Comment on above: Performed By: #### B MP #### [facility] [address] [place] [address] Dr. Deepak Greenfield CBC AUTO DIFFon 07-28-2022 BASO # 0.0 103/ul Normal 0.0-0.1 [facility] Comment on above: Performed By: #### C BC #### [facility] [address] [place] [address] Dr. Deepak Greenfield Basophils/100 WBC (Bld) 0.3 % Normal 0.2-2.0 [facility] Comment on above: Performed By: #### C BC #### [facility] [address] [place] [address] Dr. Deepak Greenfield EO # 0.0 103/ul Normal 0.0-0.7 [facility] Comment on above: Performed By: #### C BC #### [facility] [address] [place] [address] Dr. Deepak Greenfield Eosinophils/100 WBC (Bld) 0.0 % Critically low 0.9-7.0 [facility] Comment on above: Performed By: #### C BC #### [facility] [address] [place] [address] Dr. Deepak Greenfield Erythrocyte distribution width (RBC) [Ratio] 13.3 % Normal 11.0-15.0 [facility] Comment on above: Performed By: #### C BC #### [facility] [address] [place] [address] Dr. Deepak Greenfield Hematocrit (Bld) [Volume fraction] 37.0 % Critically low 42.0-54.0 [facility] Comment on above: Performed By: #### C BC #### [facility] [address] [place] [address] Dr. Deepak Greenfield Hemoglobin (Bld) [Mass/Vol] 12.3 g/dL Critically low 14.0-18.0 [facility] Comment on above: Performed By: #### C BC #### [facility] [address] [place] [address] Dr. eDepak Greenfield IG # 0.06 10e3/ul Critically high 0.00-0.03 [facility] Comment on above: Performed By: #### C BC #### [facility] [address] [place] [address] Dr. Deepak Greenfield IG % 0.5 % Normal 0.0-0.5 [facility] Comment on above: Performed By: #### C BC #### [facility] [address] [place] [address] Dr. Deepak Greenfield LYMPH # 2.9 103/ul Normal 1.2-3.8 [facility] Comment on above: Performed By: #### C BC #### [facility] [address] [place] [address] Dr. Deepak Greenfield Lymphocytes/100 WBC (Bld) 23.5 % Normal 20.5-60.0 [facility] Comment on above: Performed By: #### C BC #### [facility] [address] [place] [address] Dr. Deepak Greenfield MANUAL DIFF REQ NO Normal [facility] Comment on above: Performed By: #### C BC #### [facility] [address] [place] [address] Dr. Deepak Greenfield MCH (RBC) [Entitic mass] 32.4 pg Normal 25.9-34.0 [facility] Comment on above: Performed By: #### C BC #### [facility] [address] [place] [address] Dr. Deepak Greenfield MCHC (RBC) [Mass/Vol] 33.2 g/dL Normal 29.9-35.2 [facility] Comment on above: Performed By: #### C BC #### [facility] [address] [address] [address] Deepak Greenfield MCV (RBC) [Entitic vol] 97.4 fL Critically high 80.0-94.0 [facility] Comment on above: Performed By: #### C BC #### [facility] [address] [address] [address] Deepak Greenfield MONO # 1.0 103/ul Critically high 0.3-0.8 [facility] Comment on above: Performed By: #### C BC #### [facility] [address] [address] [address] Deepak Greenfield Monocytes/100 WBC (Bld) 8.0 % Normal 1.7-12.0 [facility] Comment on above: Performed By: #### C BC #### [facility] [address] [address] [address] Deepak Greenfield NEUT # 8.3 103/ul Critically high 1.4-6.5 [facility] Comment on above: Performed By: #### C BC #### [facility] [address] [address] [address] Deepak Greenfield Neutrophils/100 WBC (Bld) 67.7 % Normal 43.0-75.0 [facility] Comment on above: Performed By: #### C BC #### [facility] [address] [address] [address] Deepak Greenfield Platelet mean volume (Bld) [Entitic vol] 9.7 fL Normal 9.5-13.5 [facility] Comment on above: Performed By: #### C BC #### [facility] [address] [address] [address] Deepak Greenfield PLT 325 103/ul Normal 150-450 [facility] Comment on above: Performed By: #### C BC #### [facility] [address] [address] [address] Deepak Greenfield RBC 3.80 106/ul Critically low 4.70-6.10 [facility] Comment on above: Performed By: #### C BC #### [facility] [address] [place] [address] Dr. Deepak Greenfield WBC 12.2 103/ul Critically high 4.0-11.0 [facility] Comment on above: Performed By: #### C BC #### [facility] [address] [place] [address] Dr. Deepak Greenfield CULTURE BLOODon 07-28-2022 Microscopic examination of blood, culture Culture Observations: NO GROWTH AT 5 DAYS. Normal [facility] Comment on above: Performed By: #### B [id number] #### [facility] [address] [place] [address] Dr. Deepak Greenfield Microscopic examination of blood, culture Culture Observations: NO GROWTH AT 5 DAYS. Normal [facility] Comment on above: Performed By: #### C BC #### [facility] [address] [place] [address] Dr. Deepak Greenfield LACTATE/LACTIC ACIDon 2022 Lactate [Moles/Vol] 2.5 mmol/L Critically high 0.4-2.0 [facility] Comment on above: Performed By: #### C VDTBH #### [facility] [address] [place] [address] Dr. Deepak Greenfield PROF 14(COMP METB)on 023 Albumin [Mass/Vol] 3.1 g/dL Critically low 3.4-5.0 [facility] Comment on above: Performed By: #### C BC #### [facility] [address] [place] [address] Dr. Deepak Greenfield Albumin/Globulin [Mass ratio] 0.7 {ratio} Normal [facility] Comment on above: Performed By: #### C BC #### [facility] [address] [place] [address] Dr. Deepak Greenfield ALP [Catalytic activity/Vol] 51 U/L Normal 46-116 [facility] Comment on above: Performed By: #### C BC #### [facility] [address] [place] [address] Dr. Deepak Greenfield ALT [Catalytic activity/Vol] 106 U/L Critically high 16-63 [facility] Comment on above: Performed By: #### C BC #### [facility] [address] [address] [address] Deepak Greenfield Anion gap [Moles/Vol] 14.2 mmol/L Normal [facility] Comment on above: Performed By: #### C BC #### [facility] [address] [address] [address] Deepak Greefnield AST [Catalytic activity/Vol] 81 U/L Critically high 15-37 [facility] Comment on above: Performed By: #### C BC #### [facility] [address] [address] [address] Deepak Greenfield Bilirubin [Mass/Vol] 0.4 mg/dL Normal 0.2-1.0 [facility] Comment on above: Performed By: #### C BC #### [facility] [address] [address] [address] Deepak Greenfield Calcium [Mass/Vol] 8.9 mg/dL Normal 8.5-10.1 [facility] Comment on above: Performed By: #### C BC #### [facility] [address] [address] [address] Deepak Greenfield Chloride [Moles/Vol] 105 mmol/L Normal 98-107 [facility] Comment on above: Performed By: #### C BC #### [facility] [address] [address] [address] Deepak Greenfield CO2 [Moles/Vol] 27.9 mmol/L Normal 21.0-32.0 [facility] Comment on above: Performed By: #### C BC #### [facility] [address] [address] [address] Deepak Greenfield Creatinine [Mass/Vol] 0.77 mg/dL Normal 0.70-1.30 [facility] Comment on above: Performed By: #### C BC #### [facility] [address] [address] [address] Deepak Greenfield EGFR-AF MALTESE >60 Normal >=60 [facility] Comment on above: Performed By: #### C BC #### [facility] [address] [place] [address] Dr. Deepak Greenfield EGFR-NON AF MALTESE >60 Normal >=60 [facility] Comment on above: Performed By: #### C BC #### [facility] [address] [address] [address] Deepak Greenfield Globulin (S) [Mass/Vol] 4.3 g/dL Normal [facility] Comment on above: Performed By: #### C BC #### [facility] [address] [address] [address] Deepak Greenfield Glucose [Mass/Vol] 162 mg/dL Critically high 74-[address] [facility] Comment on above: Performed By: #### C BC #### [facility] [address] [place] [address] Dr. Deepak Greenfield Potassium [Moles/Vol] 4.1 mmol/L Normal 3.5-5.1 [facility] Comment on above: Performed By: #### C BC #### [facility] [address] [place] [address] Dr. Deepak Greenfield Protein [Mass/Vol] 7.4 g/dL Normal 6.4-8.2 [facility] Comment on above: Performed By: #### C BC #### [facility] [address] [place] [address] Dr. Deepak Greenfield Sodium [Moles/Vol] 143 mmol/L Normal 136-145 [facility] Comment on above: Performed By: #### C BC #### [facility] [address] [place] [address] Dr. Deepak Greenfield Urea nitrogen [Mass/Vol] 12.0 mg/dL Normal 7.0-18.0 [facility] Comment on above: Performed By: #### C BC #### [facility] [address] [place] [address] Dr. Deepak Greenfield Urea nitrogen/Creatinine [Mass ratio] 15.6 mg/mg Normal [facility] Comment on above: Performed By: #### C BC #### [facility] [address] [place] [address] Dr. Deepak Greenfield RESPIRATORY PANEL PLUSon Adenovirus Not detected Normal NOT DETECTED [facility] Comment on above: Performed By: #### B MP #### [facility] [address] [place] [address] Dr. Deepak Ocampo Parapertusis Not detected Normal NOT DETECTED [facility] Comment on above: Performed By: #### B MP #### [facility] [address] [place] [address] Dr. Deepak Ocampo Pertussis Not detected Normal NOT DETECTED [facility] Comment on above: Performed By: #### B MP #### [facility] [address] [place] [address] Dr. Deepak Greenfield Chlamydia Pneumoniae Not detected Normal NOT DETECTED [facility] Comment on above: Performed By: #### B MP #### [facility] [address] [place] [address] Dr. Deepak Greenfield Coronavirus 229E Not detected Normal NOT DETECTED [facility] Comment on above: Performed By: #### B MP #### [facility] [address] [place] [address] Dr. Deepak Greenfield Coronavirus HKU1 Not detected Normal NOT DETECTED [facility] Comment on above: Performed By: #### B MP #### [facility] [address] [place] [address] Dr. Deepak Greenfield Coronavirus NL63 Not detected Normal NOT DETECTED [facility] Comment on above: Performed By: #### B MP #### [facility] [address] [place] [address] Dr. Deepak Greenfield Coronavirus OC43 Not detected Normal NOT DETECTED [facility] Comment on above: Performed By: #### B MP #### [facility] [address] [place] [address] Dr. Deepak Greenfield Influenza A H1 Not detected Normal NOT DETECTED [facility] Comment on above: Performed By: #### B MP #### [facility] [address] [place] [address] Dr. Deepak Greenfield Influenza A H1 2009 Not detected Normal NOT DETECTED [facility] Comment on above: Performed By: #### B MP #### [facility] [address] [address] [address] Deepak Greenfield Influenza A H3 Not detected Normal NOT DETECTED [facility] Comment on above: Performed By: #### B MP #### [facility] [address] [address] [address] Deepak Greenfield Influenza B Not detected Normal NOT DETECTED [facility] Comment on above: Performed By: #### B MP #### [facility] [address] [address] [address] Deepak Greenfield Metapneumovirus Detected Abnormal NOT DETECTED [facility] Comment on above: Performed By: #### B MP #### [facility] [address] [place] [address] Dr. Deepak Greenfield Mycoplas. Pneumoniae Not detected Normal NOT DETECTED [facility] Comment on above: Performed By: #### B MP #### [facility] [address] [address] [address] Deepak Greenfield Parainfluenza 1 Not detected Normal NOT DETECTED [facility] Comment on above: Performed By: #### B MP #### [facility] [address] [address] [address] Deepak Greenfield Parainfluenza 2 Not detected Normal NOT DETECTED [facility] Comment on above: Performed By: #### B MP #### [facility] [address] [address] [address] Deepak Greenfield Parainfluenza 3 Not detected Normal NOT DETECTED [facility] Comment on above: Performed By: #### B MP #### [facility] [address] [address] [address] Deepak Greenfield Parainfluenza 4 Not detected Normal NOT DETECTED [facility] Comment on above: Performed By: #### B MP #### [facility] [address] [address] [address] Deepak Greenfield Rhino/Enterovirus Not detected Normal NOT DETECTED [facility] Comment on above: Performed By: #### B MP #### [facility] [address] [place] [address] Dr. Deepak Greenfield RP2 Header 1 RESPIRATORY PANEL: VIRUSES Normal [facility] Comment on above: Performed By: #### B MP #### [facility] [address] [place] [address] Dr. Deepak Greenfield RP2 Header 2 RESPIRATORY PANEL: BACTERIA Normal [facility] Comment on above: Performed By: #### B MP #### [facility] [address] [place] [address] Dr. Deepak Greenfield RSV Not detected Normal NOT DETECTED [facility] Comment on above: Performed By: #### B MP #### [facility] [address] [place] [address] Dr. Deepak Greenfield SARS-CoV-2 (COVID-19) RNA CINDY+probe Ql (Unsp spec) Not detected Normal NOT DETECTED [facility] Comment on above: Performed By: #### B MP #### [facility] [address] [place] [address] Dr. Deepak Greenfield XR CHEST 1 Von [...] Akua PEREZ Date: 2022-07-28 20:23 Normal [facility] AMMONIAon 07-27-2022 Ammonia (P) [Moles/Vol] 76 umol/L Critically high 11-32 [facility] Comment on above: Performed By: #### M G, CMP #### [facility] [address] [address] Dr. Deepak Greenfield CBC W MANUAL DIFFon 07-28-19 23 ATYPICAL LYMPH # Normal [facility] Comment on above: Performed By: #### M G, CMP #### [facility] [address] [place] [address] Dr. Deepak Greenfield ATYPICAL LYMPH % Normal [facility] Comment on above: Performed By: #### M G, CMP #### [facility] [address] [place] [address] Dr. Deepak Greenfield BAND # 0.4 103/ul Critically high 0.0-0.3 [facility] Comment on above: Performed By: #### M G, CMP #### [facility] [address] [place] [address] Dr. Deepak Greenfield BAND % 4 % Normal 0-5 [facility] Comment on above: Performed By: #### M G, CMP #### [facility] [address] [address] Dr. Deepak Greenfield BASOM # 0.00 103/ul Normal 0.00-0.10 [facility] Comment on above: Performed By: #### M Lacy, CMP #### [facility] [address] [address] Dr. Deepak Greenfield BASOM % 0.0 % Critically low 0.2-2.0 [facility] Comment on above: Performed By: #### M G, CMP #### [facility] [address] [address] Dr. Deepak Greenfield BLAST # Normal [facility] Comment on above: Performed By: #### M G, CMP #### [facility] [address] [place] [address] Dr. Deepak Greenfield BLAST % Normal [facility] Comment on above: Performed By: #### M G, CMP #### [facility] [address] [address] Dr. Deepak Greenfield CORRECTED WBC Normal 4.0-11.0 [facility] Comment on above: Performed By: #### M G, CMP #### [facility] [address] [address] [address] Deepak Greenfield EOS # 0.00 103/ul Normal 0.00-0.70 [facility] Comment on above: Performed By: #### M G, CMP #### [facility] [address] [address] [address] Deepak Greenfield EOS% 0.0 % Critically low 0.9-7.0 [facility] Comment on above: Performed By: #### M G, CMP #### [facility] [address] [address] [address] Deepak Greenfield HCT 29.6 % Critically low 42.0-54.0 [facility] Comment on above: Performed By: #### M G, CMP #### [facility] [address] [address] [address] Deepak Greenfield HGB 10.4 g/dl Critically low 14.0-18.0 [facility] Comment on above: Performed By: #### M G, CMP #### [facility] [address] [address] [address] Deepak Greenfield LYMPHM # 0.71 103/ul Critically low 1.20-3.80 [facility] Comment on above: Performed By: #### M G, CMP #### [facility] [address] [address] [address] Deepak Greenfield LYMPHM% 8.0 % Critically low 20.5-60.0 [facility] Comment on above: Performed By: #### M G, CMP #### [facility] [address] [address] [address] Deepak Greenfield MCH 33.0 pg Normal 25.9-34.0 [facility] Comment on above: Performed By: #### M G, CMP #### [facility] [address] [address] [address] Deepak Greenfield MCHC 35.1 g/dl Normal 29.9-35.2 [facility] Comment on above: Performed By: #### M G, CMP #### [facility] [address] [address] [address] Deepak Greenfield MCV 94.0 fL Normal 80.0-94.0 [facility] Comment on above: Performed By: #### M G, CMP #### [facility] [address] [place] [address] Dr. Deepak Greenfield METAMYELOCYTE # Normal [facility] Comment on above: Performed By: #### M G, CMP #### [facility] [address] [place] [address] Dr. Deepak Greenfield METAMYELOCYTE % Normal [facility] Comment on above: Performed By: #### M G, CMP #### [facility] [address] [place] [address] Dr. Deepak Greenfield MONOM# 0.71 103/ul Normal 0.30-0.80 [facility] Comment on above: Performed By: #### M G, CMP #### [facility] [address] [place] [address] Dr. Deepak Greenfield MONOM% 8.0 % Normal 1.7-12.0 [facility] Comment on above: Performed By: #### M G, CMP #### [facility] [address] [place] [address] Dr. Deepak Greenfield MPV 9.6 fL Normal 9.5-13.5 [facility] Comment on above: Performed By: #### M G, CMP #### [facility] [address] [place] [address] Dr. Deepak Greenfield MYELOCYTE # Normal [facility] Comment on above: Performed By: #### M G, CMP #### [facility] [address] [place] [address] Dr. Deepak Greenfield MYELOCYTE % Normal [facility] Comment on above: Performed By: #### M G, CMP #### [facility] [address] [place] [address] Dr. Deepak Greenfield NRBC Normal [facility] Comment on above: Performed By: #### M G, CMP #### [facility] [address] [place] [address] Dr. Deepak Greenfield PLT 267 103/ul Normal 150-450 [facility] Comment on above: Performed By: #### M G, CMP #### [facility] [address] [place] [address] Dr. Deepak Greenfield RBC 3.15 106/ul Critically low 4.70-6.10 [facility] Comment on above: Performed By: #### M G, CMP #### [facility] [address] [place] [address] Dr. Deepak Greenfield RDW 12.9 % Normal 11.0-15.0 [facility] Comment on above: Performed By: #### M G, CMP #### [facility] [address] [place] [address] Dr. Deepak Greenfield SEG # 7.12 103/ul Critically high 1.40-6.50 [facility] Comment on above: Performed By: #### M G, CMP #### [facility] [address] [place] [address] Dr. Deepak Greenfield SEG % 80.0 % Critically high 43.0-75.0 [facility] Comment on above: Performed By: #### M G, CMP #### [facility] [address] [place] [address] Dr. Deepak Greenfield WBC 8.9 103/ul Normal 4.0-11.0 [facility] Comment on above: Performed By: #### M G, CMP #### [facility] [address] [place] [address] Dr. Deepak Greenfield PROF CHEM 8 (BAS METB)on Anion gap [Moles/Vol] 12.4 mmol/L Normal [facility] Comment on above: Performed By: #### C BC #### [facility] [address] [place] [address] Dr. Deepak Greenfield Calcium [Mass/Vol] 8.2 mg/dL Critically low 8.5-10.1 [facility] Comment on above: Performed By: #### C BC #### [facility] [address] [place] [address] Dr. Deepak Greenfield Chloride [Moles/Vol] 101 mmol/L Normal 98-107 [facility] Comment on above: Performed By: #### C BC #### [facility] [address] [address] [address] Deepak Greenfield CO2 [Moles/Vol] 25.0 mmol/L Normal 21.0-32.0 [facility] Comment on above: Performed By: #### C BC #### [facility] [address] [address] [address] Deepak Greenfield Creatinine [Mass/Vol] 0.53 mg/dL Critically low 0.70-1.30 [facility] Comment on above: Performed By: #### C BC #### [facility] [address] [place] [address] Dr. Deepak Greenfield EGFR-AF MALTESE >60 Normal >=60 [facility] Comment on above: Performed By: #### C BC #### [facility] [address] [place] [address] Dr. Deepak Greenfield EGFR-NON AF MALTESE >60 Normal >=60 [facility] Comment on above: Performed By: #### C BC #### [facility] [address] [address] [address] Deepak Greenfield Glucose [Mass/Vol] 161 mg/dL Critically high 74-106 [facility] Comment on above: Performed By: #### C BC #### [facility] [address] [address] [address] Deepak Greenfield Potassium [Moles/Vol] 4.4 mmol/L Normal 3.5-5.1 [facility] Comment on above: Performed By: #### C BC #### [facility] [address] [address] [address] Deepak Greenfield Sodium [Moles/Vol] 134 mmol/L Critically low 136-145 [facility] Comment on above: Performed By: #### C BC #### [facility] [address] [place] [address] Dr. Deepak Greenfield Urea nitrogen [Mass/Vol] 13.0 mg/dL Normal 7.0-18.0 [facility] Comment on above: Performed By: #### C BC #### [facility] [address] [place] [address] Dr. Deepak Greenfield Urea nitrogen/Creatinine [Mass ratio] 24.5 mg/mg Normal [facility] Comment on above: Performed By: #### C BC #### [facility] [address] [place] [address] Dr. Deepak Greenfield AMMONIAon 07-26-2022 Ammonia (P) [Moles/Vol] 56 umol/L Critically high 11-32 [facility] Comment on above: Performed By: #### M G, CMP #### [facility] [address] [place] [address] Dr. Deepak Greenfield CARDIAC BEATRIS ADMITon 023 CK [Catalytic activity/Vol] 83 U/L Normal 39-308 [facility] Comment on above: Performed By: #### B MP #### [facility] [address] [place] [address] Dr. Deepak Greenfield CK.MB [Mass/Vol] 0.86 ng/mL Normal <=3.60 [facility] Comment on above: Performed By: #### B MP #### [facility] [address] [place] [address] Dr. Deepak Greenfield HSTROP 7.4 pg/mL Normal 4.0-76.1 [facility] Comment on above: Result Comment: CUT- OFF POINTS HAVE BEEN ESTABLISHED BASED ON THE FOURTH UNIVERSAL DEFINITIONS OF MYOCARDIAL INFARCTION. THE UPPER REFERENCE LIMIT (URL) OF TROPONIN, DEFINED THE 99TH PERCENTILE OF cTnI DISTRIBUTION IN A REFERENCE POPULATION, HAS BEEN CONFIRMED THE DECISION THRESHOLD FOR MT DIAGNOSIS. Performed By: #### B MP #### [facility] [address] [address] Dr. Deepak Greenfield VALE 46 ng/mL Normal 16-96 [facility] Comment on above: Performed By: #### B MP #### [facility] [address] [place] [address] Dr. Deepak Greenfield CBC AUTO DIFFon 07-26-2022 BASO # 0.1 103/ul Normal 0.0-0.1 [facility] Comment on above: Performed By: #### M G, CMP #### [facility] [address] [place] [address] Dr. Deepak Greenfield Basophils/100 WBC (Bld) 0.5 % Normal 0.2-2.0 [facility] Comment on above: Performed By: #### M G, CMP #### [facility] [address] [place] [address] Dr. Deepak Greenfield EO # 0.2 103/ul Normal 0.0-0.7 [facility] Comment on above: Performed By: #### M G, CMP #### [facility] [address] [place] [address] Dr. Deepak Greenfield Eosinophils/100 WBC (Bld) 2.1 % Normal 0.9-7.0 [facility] Comment on above: Performed By: #### M G, CMP #### [facility] [address] [place] [address] Dr. Deepak Greenfield Erythrocyte distribution width (RBC) [Ratio] 13.2 % Normal 11.0-15.0 [facility] Comment on above: Performed By: #### M G, CMP #### [facility] [address] [place] [address] Dr. Deepak Greenfield Hematocrit (Bld) [Volume fraction] 36.7 % Critically low 42.0-54.0 [facility] Comment on above: Performed By: #### M G, CMP #### [facility] [address] [place] [address] Dr. Deepak Greenfield Hemoglobin (Bld) [Mass/Vol] 12.4 g/dL Critically low 14.0-18.0 [facility] Comment on above: Performed By: #### M G, CMP #### [facility] [address] [place] [address] Dr. Deepak Greenfield IG # 0.04 10e3/ul Critically high 0.00-0.03 [facility] Comment on above: Performed By: #### M G, CMP #### [facility] [address] [place] [address] Dr. Deepak Greenfield IG % 0.4 % Normal 0.0-0.5 [facility] Comment on above: Performed By: #### M G, CMP #### [facility] [address] [place] [address] Dr. Deepak Greenfield LYMPH # 1.7 103/ul Normal 1.2-3.8 [facility] Comment on above: Performed By: #### M G, CMP #### [facility] [address] [place] [address] Dr. Deepak Greenfield Lymphocytes/100 WBC (Bld) 15.6 % Critically low 20.5-60.0 [facility] Comment on above: Performed By: #### M G, CMP #### [facility] [address] [place] [address] Dr. Deepak Greenfield MANUAL DIFF REQ NO Normal [facility] Comment on above: Performed By: #### M G, CMP #### [facility] [address] [place] [address] Dr. Deepak Greenfield MCH (RBC) [Entitic mass] 32.5 pg Normal 25.9-34.0 [facility] Comment on above: Performed By: #### M G, CMP #### [facility] [address] [place] [address] Dr. Deepak Greenfield MCHC (RBC) [Mass/Vol] 33.8 g/dL Normal 29.9-35.2 [facility] Comment on above: Performed By: #### M G, CMP #### [facility] [address] [place] [address] Dr. Deepak Greenfield MCV (RBC) [Entitic vol] 96.3 fL Critically high 80.0-94.0 [facility] Comment on above: Performed By: #### M G, CMP #### [facility] [address] [place] [address] Dr. Deepak Greenfield MONO # 1.4 103/ul Critically high 0.3-0.8 [facility] Comment on above: Performed By: #### M G, CMP #### [facility] [address] [place] [address] Dr. Deepak Greenfield Monocytes/100 WBC (Bld) 12.8 % Critically high 1.7-12.0 [facility] Comment on above: Performed By: #### M G, CMP #### [facility] [address] [place] [address] Dr. Deepak Greenfield NEUT # 7.4 103/ul Critically high 1.4-6.5 [facility] Comment on above: Performed By: #### M G, CMP #### [facility] [address] [place] [address] Dr. Deepak Greenfield Neutrophils/100 WBC (Bld) 68.6 % Normal 43.0-75.0 [facility] Comment on above: Performed By: #### Karishma G, CMP #### [facility] [address] [place] [address] Dr. Deepak Greenfield Platelet mean volume (Bld) [Entitic vol] 9.5 fL Normal 9.5-13.5 [facility] Comment on above: Performed By: #### Karishma Bajwa, CMP #### [facility] [address] [place] [address] Dr. Deepak Greenfield PLT 314 103/ul Normal 150-450 [facility] Comment on above: Performed By: #### Karishma Bajwa, CMP #### [facility] [address] [place] [address] Dr. Deepak Greenfield RBC 3.81 106/ul Critically low 4.70-6.10 [facility] Comment on above: Performed By: #### Karishma Bajwa, CMP #### [facility] [address] [place] [address] Dr. Deepak Greenfield WBC 10.8 103/ul Normal 4.0-11.0 [facility] Comment on above: Performed By: #### Karishma G, CMP #### [facility] [address] [place] [address] Dr. Deepak Greenfield [facility] SARS-CoV-2 (COVID-19) RNA CINDY+probe Ql (Unsp spec) Not detected Normal NOT DETECTED [facility] Comment on above: Result Comment: When diagnostic [...] for this test is supported by the Store Coordinator of Health and Human Service's declaration that [...] used). Performed By: #### C VDTB #### [facility] [address] [place] [address] Dr. Deepak Greenfield INFLUENZA A AND B AGon 07-26 [facility] SEE BELOW Normal [facility] Comment on above: Result Comment: Nega tive for Flu A protein angiten. Infection due to Flu A cannot be ruled out. Flu A angiten in the sample may be below the detection limit of the test. Performed By: #### I NFLUAB #### [facility] [address] [place] [address] Dr. Deepak Greenfield [facility] Normal [facility] Comment on above: Result Comment: Nega tive for Flu B protein antigen. Infection due to Flu B cannot be ruled out. Flu B antigen in the sample may be below the detection limit of the test. Performed By: #### I NFLUAB #### [facility] [address] [place] [address] Dr. Deepak Greenfield INFLUENZA A AG Negative Normal NEGATIVE SEE COMMENT [facility] Comment on above: Performed By: #### I NFLUAB #### [facility] [address] [place] [address] Dr. Deepak Greenfield INFLUENZA B AG Negative Normal NEGATIVE SEE COMMENT [facility] Comment on above: Performed By: #### I NFLUAB #### [facility] [address] [place] [address] Dr. Deepak Greenfield LACTATE/LACTIC ACIDon 2022 Lactate [Moles/Vol] 1.2 mmol/L Normal 0.4-2.0 [facility] Comment on above: Performed By: #### M G, CMP #### [facility] [address] [place] [address] Dr. Deepak Greenfield PROF 14(COMP METB)on 023 Albumin [Mass/Vol] 3.3 g/dL Critically low 3.4-5.0 [facility] Comment on above: Performed By: #### B MP #### [facility] [address] [place] [address] Dr. Deepak Greenfield Albumin/Globulin [Mass ratio] 0.8 {ratio} Normal [facility] Comment on above: Performed By: #### B MP #### [facility] [address] [place] [address] Dr. Deepak Greenfield ALP [Catalytic activity/Vol] 45 U/L Critically low 46-116 [facility] Comment on above: Performed By: #### B MP #### [facility] [address] [place] [address] Dr. Deepak Greenfield ALT [Catalytic activity/Vol] 114 U/L Critically high 16-63 [facility] Comment on above: Performed By: #### B MP #### [facility] [address] [place] [address] Dr. Deepak Greenfield Anion gap [Moles/Vol] 14.5 mmol/L Normal [facility] Comment on above: Performed By: #### B MP #### [facility] [address] [place] [address] Dr. Deepak Greenfield AST [Catalytic activity/Vol] 71 U/L Critically high 15-37 [facility] Comment on above: Performed By: #### B MP #### [facility] [address] [place] [address] Dr. Deepak Greenfield Bilirubin [Mass/Vol] 0.7 mg/dL Normal 0.2-1.0 [facility] Comment on above: Performed By: #### B MP #### [facility] [address] [address] [address] Deepak Greenfield Calcium [Mass/Vol] 9.1 mg/dL Normal 8.5-10.1 [facility] Comment on above: Performed By: #### B MP #### [facility] [address] [address] [address] Deepak Greenfield Chloride [Moles/Vol] 98 mmol/L Normal 98-107 [facility] Comment on above: Performed By: #### B MP #### [facility] [address] [address] [address] Deepak Greenfield CO2 [Moles/Vol] 27.4 mmol/L Normal 21.0-32.0 [facility] Comment on above: Performed By: #### B MP #### [facility] [address] [place] [address] Dr. Deepak Greenfield Creatinine [Mass/Vol] 0.65 mg/dL Critically low 0.70-1.30 [facility] Comment on above: Performed By: #### B MP #### [facility] [address] [address] [address] Deepak Greenfield EGFR-AF MALTESE >60 Normal >=60 [facility] Comment on above: Performed By: #### B MP #### [facility] [address] [address] Dr. Deepak Greenfield EGFR-NON AF MALTESE >60 Normal >=60 [facility] Comment on above: Performed By: #### B MP #### [facility] [address] [address] Dr. Deepak Greenfield Globulin (S) [Mass/Vol] 4.2 g/dL Normal [facility] Comment on above: Performed By: #### B MP #### [facility] [address] [address] Dr. Deepak Greenfield Glucose [Mass/Vol] 105 mg/dL Normal 74-106 [facility] Comment on above: Performed By: #### B MP #### [facility] [address] [place] [address] Dr. Deepak Greenfield Potassium [Moles/Vol] 3.9 mmol/L Normal 3.5-5.1 [facility] Comment on above: Performed By: #### B MP #### [facility] [address] [address] [address] Deepak Greenfield Protein [Mass/Vol] 7.5 g/dL Normal 6.4-8.2 [facility] Comment on above: Performed By: #### B MP #### [facility] [address] [address] [address] Deepak Greenfield Sodium [Moles/Vol] 136 mmol/L Normal 136-145 [facility] Comment on above: Performed By: #### B MP #### [facility] [address] [address] [address] Deepak Greenfield Urea nitrogen [Mass/Vol] 13.0 mg/dL Normal 7.0-18.0 [facility] Comment on above: Performed By: #### B MP #### [facility] [address] [address] [address] Deepak Greenfield Urea nitrogen/Creatinine [Mass ratio] 20.0 mg/mg Normal [facility] Comment on above: Performed By: #### B MP #### [facility] [address] [address] [address] Deepak Greenfield XR CHEST 1 Von [...] by: ANICETO GARCIA Date: 2022-07-26 12:27 Normal [facility] Consent for Treatmenton Consent for Treatment [id number]:127 Normal [facility] Physician Orderon 07-23-2022 Physician Order [id number]# 1.00CD:127 Normal [facility] XR Adult Swallowing Function w/ Videoon [...] mGy = 11.70 DAP = 270.92 Normal [facility] AMMONIAon 06-03-2022 Ammonia (P) [Moles/Vol] 112 umol/L Critically high [facility] Comment on above: Performed By: #### A MM #### [facility] [address] [address] Dr. Deepak Greenfield DEPAKENE/ VALPROIC ACIDon DEPAKENE 94.0 ug/ml Normal 50.0-100.0 [facility] Comment on above: Performed By: #### C BC #### [facility] [address] [place] [address] Dr. Deepak Greenfield LIVER PROFILEon 06-03-2022 Albumin [Mass/Vol] 3.6 g/dL Normal 3.4-5.0 [facility] Comment on above: Performed By: #### C BC #### [facility] [address] [place] [address] Dr. Deepak Greenfield Albumin/Globulin [Mass ratio] 0.9 {ratio} Normal [facility] Comment on above: Performed By: #### C BC #### [facility] [address] [place] [address] Dr. Deepak Greenfield ALP [Catalytic activity/Vol] 55 U/L Normal 46-116 [facility] Comment on above: Performed By: #### C BC #### [facility] [address] [place] [address] Dr. Deepak Greenfield ALT [Catalytic activity/Vol] 76 U/L Critically high 16-63 [facility] Comment on above: Performed By: #### C BC #### [facility] [address] [place] [address] Dr. Deepak Greenfield AST [Catalytic activity/Vol] 51 U/L Critically high 15-37 [facility] [facility] Comment on above: Performed By: #### C BC #### [facility] [address] [place] [address] Dr. Deepak Greenfield BILI, CONJUGATED 0.1 mg/dL Normal 0.0-0.2 [facility] Comment on above: Performed By: #### C BC #### [facility] [address] [place] [address] Dr. Deepak Greenfield Bilirubin [Mass/Vol] 0.4 mg/dL Normal 0.2-1.0 [facility] Comment on above: Performed By: #### C BC #### [facility] [address] [address] Dr. Deepak Greenfield Globulin (S) [Mass/Vol] 4.1 g/dL Normal [facility] Comment on above: Performed By: #### C BC #### [facility] [address] [place] [address] Dr. Deepak Greenfield Protein [Mass/Vol] 7.7 g/dL Normal 6.4-8.2 [facility] Comment on above: Performed By: #### C BC #### [facility] [address] [place] [address] Dr. Deepak Greenfield AMMONIAon 04-22-2022 Ammonia (P) [Moles/Vol] 108 umol/L Critically high 11-32 [facility] Comment on above: Performed By: #### B MP #### [facility] [address] [place] [address] Dr. Deepak Greenfield CBC AUTO DIFFon 04-22-2022 BASO # 0.0 103/ul Normal 0.0-0.1 [facility] Comment on above: Performed By: #### C BC #### [facility] [address] [place] [address] Dr. Deepak Greenfield Basophils/100 WBC (Bld) 0.5 % Normal 0.2-2.0 [facility] Comment on above: Performed By: #### C BC #### [facility] [address] [place] [address] Dr. Deepak Greenfield EO # 0.1 103/ul Normal 0.0-0.7 [facility] Comment on above: Performed By: #### C BC #### [facility] [address] [place] [address] Dr. Deepak Greenfield Eosinophils/100 WBC (Bld) 1.4 % Normal 0.9-7.0 [facility] Comment on above: Performed By: #### C BC #### [facility] [address] [place] [address] Dr. Deepak Greenfield Erythrocyte distribution width (RBC) [Ratio] 14.2 % Normal 11.0-15.0 [facility] Comment on above: Performed By: #### C BC #### [facility] [address] [place] [address] Dr. Deepak Greenfield Hematocrit (Bld) [Volume fraction] 37.0 % Critically low 42.0-54.0 [facility] Comment on above: Performed By: #### C BC #### [facility] [address] [place] [address] Dr. Deepak Greenfield Hemoglobin (Bld) [Mass/Vol] 12.3 g/dL Critically low 14.0-18.0 [facility] Comment on above: Performed By: #### C BC #### [facility] [address] [place] [address] Dr. Deepak Greenfield IG # 0.00 10e3/ul Normal 0.00-0.03 [facility] Comment on above: Performed By: #### C BC #### [facility] [address] [place] [address] Dr. Deepak Greenfield IG % 0.0 % Normal 0.0-0.5 [facility] Comment on above: Performed By: #### C BC #### [facility] [address] [place] [address] Dr. Deepak Greenfield LYMPH # 3.3 103/ul Normal 1.2-3.8 [facility] Comment on above: Performed By: #### C BC #### [facility] [address] [place] [address] Dr. Deepak Greenfield Lymphocytes/100 WBC (Bld) 51.5 % Normal 20.5-60.0 [facility] Comment on above: Performed By: #### C BC #### [facility] [address] [place] [address] Dr. Deepak Greenfield MANUAL DIFF REQ NO Normal [facility] Comment on above: Performed By: #### C BC #### [facility] [address] [place] [address] Dr. Deepak Greenfield MCH (RBC) [Entitic mass] 32.2 pg Normal 25.9-34.0 [facility] Comment on above: Performed By: #### C BC #### [facility] [address] [place] [address] Dr. Deepak Greenfield MCHC (RBC) [Mass/Vol] 33.2 g/dL Normal 29.9-35.2 [facility] Comment on above: Performed By: #### C BC #### [facility] [address] [place] [address] Dr. Deepak Greenfield MCV (RBC) [Entitic vol] 96.9 fL Critically high 80.0-94.0 [facility] Comment on above: Performed By: #### C BC #### [facility] [address] [place] [address] Dr. Deepak Greenfield MONO # 0.6 103/ul Normal 0.3-0.8 [facility] Comment on above: Performed By: #### C BC #### [facility] [address] [place] [address] Dr. Deepak Greenfield Monocytes/100 WBC (Bld) 9.7 % Normal 1.7-12.0 [facility] Comment on above: Performed By: #### C BC #### [facility] [address] [place] [address] Dr. Deepak Greenfield NEUT # 2.4 103/ul Normal 1.4-6.5 [facility] Comment on above: Performed By: #### C BC #### [facility] [address] [place] [address] Dr. Deepak Greenfield Neutrophils/100 WBC (Bld) 36.9 % Critically low 43.0-75.0 [facility] Comment on above: Performed By: #### C BC #### [facility] [address] [place] [address] Dr. Deepak Greenfield Platelet mean volume (Bld) [Entitic vol] 10.2 fL Normal 9.5-13.5 [facility] Comment on above: Performed By: #### C BC #### [facility] [address] [place] [address] Dr. Deepak Greenfield PLT 248 103/ul Normal 150-450 [facility] Comment on above: Performed By: #### C BC #### [facility] [address] [place], [place] [id number] Dr. Deepak Greenfield RBC 3.82 106/ul Critically low 4.70-6.10 [facility] Comment on above: Performed By: #### C BC #### [facility] [address] [place] [address] Dr. Deepak Greenfield WBC 6.5 103/ul Normal 4.0-11.0 [facility] Comment on above: Performed By: #### C BC #### [facility] [address] [place] [address] Dr. Deepak Greenfield FERRITINon 04-22-2022 Ferritin [Mass/Vol] 152.0 ng/mL Normal 26.0-388.0 [facility] Comment on above: Performed By: #### M G, CMP #### [facility] [address] [place] [address] Dr. Deepak Greenfield IRONon 04-22-2022 Iron [Mass/Vol] 136.0 ug/dL Normal 65.0-175.0 [facility] Comment on above: Performed By: #### M G, CMP #### [facility] [address] [place] [address] Dr. Deepak Greenfield MAGNESIUMon 04-22-2022 Magnesium [Mass/Vol] 1.6 mg/dL Critically low 1.8-2.4 [facility] Comment on above: Performed By: #### I NFLUAB #### [facility] [address] [place] [address] Dr. Deepak Greenfield VITAMIN B12on 04-22-2022 Cobalamin (Vitamin B12) [Mass/Vol] 545.0 pg/mL Normal 193.0-986.0 [facility] Comment on above: Performed By: #### M G, CMP #### [facility] [address] [place] [address] Dr. Deepak Greenfield CBC AUTO DIFFon 03-19-2022 BASO # 0.0 103/ul Normal 0.0-0.1 [facility] Comment on above: Performed By: #### M G, CMP #### [facility] [address] [place] [address] Dr. Deepak Greenfield Basophils/100 WBC (Bld) 0.5 % Normal 0.2-2.0 [facility] Comment on above: Performed By: #### M G, CMP #### [facility] [address] [place] [address] Dr. Deepak Greenfield EO # 0.2 103/ul Normal 0.0-0.7 [facility] Comment on above: Performed By: #### M G, CMP #### [facility] [address] [place] [address] Dr. Deepak Greenfield Eosinophils/100 WBC (Bld) 2.0 % Normal 0.9-7.0 [facility] Comment on above: Performed By: #### M G, CMP #### [facility] [address] [place] [address] Dr. Deepak Greenfield Erythrocyte distribution width (RBC) [Ratio] 13.5 % Normal 11.0-15.0 [facility] Comment on above: Performed By: #### M G, CMP #### [facility] [address] [place] [address] Dr. Deepak Greenfield Hematocrit (Bld) [Volume fraction] 38.5 % Critically low 42.0-54.0 [facility] Comment on above: Performed By: #### M G, CMP #### [facility] [address] [place] [address] Dr. Deepak Greenfield Hemoglobin (Bld) [Mass/Vol] 12.6 g/dL Critically low 14.0-18.0 [facility] Comment on above: Performed By: #### M G, CMP #### [facility] [address] [place] [address] Dr. Deepak Greenfield IG # 0.02 10e3/ul Normal 0.00-0.03 [facility] Comment on above: Performed By: #### M G, CMP #### [facility] [address] [place] [address] Dr. Deepak Greenfield IG % 0.2 % Normal 0.0-0.5 [facility] Comment on above: Performed By: #### M G, CMP #### [facility] [address] [place] [address] Dr. Deepak Greenfield LYMPH # 3.1 103/ul Normal 1.2-3.8 [facility] Comment on above: Performed By: #### M G, CMP #### [facility] [address] [place] [address] Dr. Deepak Greenfield Lymphocytes/100 WBC (Bld) 36.2 % Normal 20.5-60.0 [facility] Comment on above: Performed By: #### M G, CMP #### [facility] [address] [place] [address] Dr. Deepak Greenfield MANUAL DIFF REQ NO Normal [facility] Comment on above: Performed By: #### M G, CMP #### [facility] [address] [place] [address] Dr. Deepak Greenfield MCH (RBC) [Entitic mass] 32.1 pg Normal 25.9-34.0 [facility] Comment on above: Performed By: #### M G, CMP #### [facility] [address] [place] [address] Dr. Deepak Greenfield MCHC (RBC) [Mass/Vol] 32.7 g/dL Normal 29.9-35.2 [facility] Comment on above: Performed By: #### M G, CMP #### [facility] [address] [place] [address] Dr. Deepak Greenfield MCV (RBC) [Entitic vol] 98.0 fL Critically high 80.0-94.0 [facility] Comment on above: Performed By: #### M G, CMP #### [facility] [address] [place] [address] Dr. Deepak Greenfield MONO # 0.9 103/ul Critically high 0.3-0.8 [facility] Comment on above: Performed By: #### M G, CMP #### [facility] [address] [place] [address] Dr. Deepak Greenfield Monocytes/100 WBC (Bld) 10.6 % Normal 1.7-12.0 [facility] Comment on above: Performed By: #### M G, CMP #### [facility] [address] [place] [address] Dr. Deepak Greenfield NEUT # 4.3 103/ul Normal 1.4-6.5 [facility] Comment on above: Performed By: #### M G, CMP #### [facility] [address] [place] [address] Dr. Deepak Greenfield Neutrophils/100 WBC (Bld) 50.5 % Normal 43.0-75.0 [facility] Comment on above: Performed By: #### M Lacy, CMP #### [facility] [address] [address] [address] Deepak Greenfield Platelet mean volume (Bld) [Entitic vol] 9.9 fL Normal 9.5-13.5 [facility] Comment on above: Performed By: #### Karishma G, CMP #### [facility] [address] [address] [address] Deepak Greenfield PLT 263 103/ul Normal 150-450 [facility] Comment on above: Performed By: #### Karishma G, CMP #### [facility] [address] [place] [address] Dr. Deepak Greenfield RBC 3.93 106/ul Critically low 4.70-6.10 [facility] Comment on above: Performed By: #### Karishma Bajwa, CMP #### [facility] [address] [address] [address] Deepak Greenfield WBC 8.6 103/ul Normal 4.0-11.0 [facility] Comment on above: Performed By: #### Karishma Bajwa, CMP #### [facility] [address] [place] [address] Dr. Deepak Greenfield MAGNESIUMon 03-19-2022 Magnesium [Mass/Vol] 1.5 mg/dL Critically low 1.8-2.4 [facility] Comment on above: Performed By: #### Karishma Bajwa, CMP #### [facility] [address] [place] [address] Dr. Deepak Greenfield PROF 14(COMP METB)on 022 Albumin [Mass/Vol] 3.4 g/dL Normal 3.4-5.0 [facility] Comment on above: Performed By: #### Karishma Bajwa, CMP #### [facility] [address] [place] [address] Dr. Deepak Greenfield Albumin/Globulin [Mass ratio] 0.9 {ratio} Normal [facility] Comment on above: Performed By: #### M G, CMP #### [facility] [address] [address] [address] Deepak Greenfield ALP [Catalytic activity/Vol] 47 U/L Normal 46-116 [facility] Comment on above: Performed By: #### M G, CMP #### [facility] [address] [address] [address] Deepak Greenfield ALT [Catalytic activity/Vol] 48 U/L Normal 16-63 [facility] Comment on above: Performed By: #### M G, CMP #### [facility] [address] [address] [address] Deepak Greenfield Anion gap [Moles/Vol] 9.5 mmol/L Normal [facility] Comment on above: Performed By: #### M G, CMP #### [facility] [address] [address] [address] Deepak Greenfield AST [Catalytic activity/Vol] 30 U/L Normal 15-37 [facility] Comment on above: Performed By: #### M G, CMP #### [facility] [address] [place] [address] Dr. Deepak Greenfield Bilirubin [Mass/Vol] 0.2 mg/dL Normal 0.2-1.0 [facility] Comment on above: Performed By: #### M G, CMP #### [facility] [address] [address] [address] Deepak Greenfield Calcium [Mass/Vol] 8.7 mg/dL Normal 8.5-10.1 [facility] Comment on above: Performed By: #### M G, CMP #### [facility] [address] [address] [address] Deepak Greenfield Chloride [Moles/Vol] 105 mmol/L Normal 98-107 [facility] Comment on above: Performed By: #### M G, CMP #### [facility] [address] [address] [address] Deepak Greenfield CO2 [Moles/Vol] 32.6 mmol/L Critically high 21.0-32.0 [facility] Comment on above: Performed By: #### M G, CMP #### [facility] [address] [address] [address] Deepak Greenfield Creatinine [Mass/Vol] 0.70 mg/dL Normal 0.70-1.30 [facility] Comment on above: Performed By: #### M G, CMP #### [facility] [address] [address] [address] Deepak Greenfield EGFR-AF MALTESE >60 Normal >=60 [facility] Comment on above: Performed By: #### M G, CMP #### [facility] [address] [address] [address] Deepak Greenfield EGFR-NON AF MALTESE >60 Normal >=60 [facility] Comment on above: Performed By: #### M G, CMP #### [facility] [address] [place] [address] Dr. Deepak Greenfield Globulin (S) [Mass/Vol] 3.8 g/dL Normal [facility] Comment on above: Performed By: #### M G, CMP #### [facility] [address] [place] [address] Dr. Deepak Greenfield Glucose [Mass/Vol] 98 mg/dL Normal 74-106 [facility] Comment on above: Performed By: #### M G, CMP #### [facility] [address] [place] [address] Dr. Deepak Greenfield Potassium [Moles/Vol] 4.1 mmol/L Normal 3.5-5.1 [facility] Comment on above: Performed By: #### M G, CMP #### [facility] [address] [place] [address] Dr. Deepak Greenfield Protein [Mass/Vol] 7.2 g/dL Normal 6.4-8.2 [facility] Comment on above: Performed By: #### M G, CMP #### [facility] [address] [place] [address] Dr. Deepak Greenfield Sodium [Moles/Vol] 143 mmol/L Normal 136-145 [facility] Comment on above: Performed By: #### M G, CMP #### [facility] [address] [place] [address] Dr. Deepak Greenfield Urea nitrogen [Mass/Vol] 10.0 mg/dL Normal 7.0-18.0 [facility] Comment on above: Performed By: #### M Lacy, CMP #### [facility] [address] [place] [address] Dr. Deepak Greenfield Urea nitrogen/Creatinine [Mass ratio] 14.3 mg/mg Normal [facility] Comment on above: Performed By: #### M G, CMP #### [facility] [address] [place] [address] Dr. Deepak Greenfield VITAMIN D 25 OHon 03-19-2022 VIT D 25-OH 67.5 ng/mL Normal [facility] Comment on above: Performed By: #### Karishma Bajwa, CMP #### [facility] [address] [place] [address] Dr. Deepak Greenfield VIT D RANGES SEE BELOW Normal [facility] Comment on above: Result Comment: <20 ng/mL Vit D deficient 20 - <30 ng/mL Vit D insufficient 30 - 100 ng/mL Vit D sufficient >100 ng/mL Potential Toxicity Performed By: #### Karishma Bajwa, CMP #### [facility] [address] [place] [address] Dr. Deepak Greenfield AMMONIAon 03-10-2022 Ammonia (P) [Moles/Vol] 36 umol/L Critically high [facility] Comment on above: Performed By: #### C BC #### [facility] [address] [place] [address] Dr. Deepak Greenfield DEPAKENE/ VALPROIC ACIDon DEPAKENE 93.5 ug/ml Normal 50.0-100.0 [facility] Comment on above: Performed By: #### B MP #### [facility] [address] [place] [address] Dr. Deepak Greenfield BNPon 01-24-2022 Natriuretic peptide B (Bld) [Mass/Vol] 183.0 pg/mL Normal <=450.0 [facility] Comment on above: Performed By: #### M Lacy, CMP #### [facility] [address] [place] [address] Dr. Deepak Greenfield CBC AUTO DIFFon 01-24-2022 BASO # 0.0 103/ul Normal 0.0-0.1 [facility] Comment on above: Performed By: #### C VDTBH #### [facility] [address] [place] [address] Dr. Deepak Greenfield Basophils/100 WBC (Bld) 0.3 % Normal 0.2-2.0 [facility] Comment on above: Performed By: #### C VDTBH #### [facility] [address] [place] [address] Dr. Deepak Greenfield EO # 0.1 103/ul Normal 0.0-0.7 [facility] Comment on above: Performed By: #### C VDTBH #### [facility] [address] [place] [address] Dr. Deepak Greenfield Eosinophils/100 WBC (Bld) 0.4 % Critically low 0.9-7.0 [facility] Comment on above: Performed By: #### C VDTBH #### [facility] [address] [place] [address] Dr. Deepak Greenfield Erythrocyte distribution width (RBC) [Ratio] 13.6 % Normal 11.0-15.0 [facility] Comment on above: Performed By: #### C VDTBH #### [facility] [address] [place] [address] Dr. Deepak Greenfield Hematocrit (Bld) [Volume fraction] 39.3 % Critically low 42.0-54.0 [facility] Comment on above: Performed By: #### C VDTBH #### [facility] [address] [place] [address] Dr. Deepak Greenfield Hemoglobin (Bld) [Mass/Vol] 12.6 g/dL Critically low 14.0-18.0 [facility] Comment on above: Performed By: #### C VDTBH #### [facility] [address] [place] [address] Dr. Deepak Greenfield IG # 0.04 10e3/ul Critically high 0.00-0.03 [facility] Comment on above: Performed By: #### C VDTBH #### [facility] [address] [address] [address] Deepak Greenfield IG % 0.3 % Normal 0.0-0.5 [facility] Comment on above: Performed By: #### C VDTBH #### [facility] [address] [address] [address] Deepak Greenfield LYMPH # 2.4 103/ul Normal 1.2-3.8 [facility] Comment on above: Performed By: #### C VDTBH #### [facility] [address] [address] [address] Deepak Greenfield Lymphocytes/100 WBC (Bld) 16.6 % Critically low 20.5-60.0 [facility] Comment on above: Performed By: #### C VDTBH #### [facility] [address] [address] [address] Deepak Greenfield MANUAL DIFF REQ NO Normal [facility] Comment on above: Performed By: #### C VDTBH #### [facility] [address] [address] [address] Deepak Greenfield MCH (RBC) [Entitic mass] 32.0 pg Normal 25.9-34.0 [facility] Comment on above: Performed By: #### C VDTBH #### [facility] [address] [address] [address] Deepak Greenfield MCHC (RBC) [Mass/Vol] 32.1 g/dL Normal 29.9-35.2 [facility] Comment on above: Performed By: #### C VDTBH #### [facility] [address] [address] [address] Deepak Greenfield MCV (RBC) [Entitic vol] 99.7 fL Critically high 80.0-94.0 [facility] Comment on above: Performed By: #### C VDTBH #### [facility] [address] [address] [address] Deepak Greenfield MONO # 1.4 103/ul Critically high 0.3-0.8 [facility] Comment on above: Performed By: #### C VDTBH #### [facility] [address] [place] [address] Dr. Deepak Greenfield Monocytes/100 WBC (Bld) 9.8 % Normal 1.7-12.0 [facility] Comment on above: Performed By: #### C VDTBH #### [facility] [address] [place] [address] Dr. Deepak Greenfield NEUT # 10.7 103/ul Critically high 1.4-6.5 [facility] Comment on above: Performed By: #### C VDTBH #### [facility] [address] [place] [address] Dr. Deepak Greenfield Neutrophils/100 WBC (Bld) 72.6 % Normal 43.0-75.0 [facility] Comment on above: Performed By: #### C VDTBH #### [facility] [address] [place] [address] Dr. Deepak Greenfield Platelet mean volume (Bld) [Entitic vol] 10.4 fL Normal 9.5-13.5 [facility] Comment on above: Performed By: #### C VDTBH #### [facility] [address] [place] [address] Dr. Deepak Greenfield PLT 280 103/ul Normal 150-450 [facility] Comment on above: Performed By: #### C VDTBH #### [facility] [address] [place] [address] Dr. Deepak Greenfield RBC 3.94 106/ul Critically low 4.70-6.10 [facility] Comment on above: Performed By: #### C VDTBH #### [facility] [address] [place] [address] Dr. Deepak Greenfield WBC 14.7 103/ul Critically high 4.0-11.0 [facility] Comment on above: Performed By: #### C VDTBH #### [facility] [address] [place] [address] Dr. Deepak Greenfield CULTURE BLOODon 01-24-2022 Microscopic examination of blood, culture Culture Observations: No growth at 5 days. Normal [facility] Comment on above: Performed By: #### C BC #### [facility] [address] [address] Dr. Deepak Greenfield Microscopic examination of blood, culture Culture Observations: No growth at 5 days. Normal [facility] Comment on above: Performed By: #### C BC #### [facility] [address] [address] Dr. Deepak Greenfield Covid-19 PCR ([facility])on SARS-CoV-2 (COVID-19) RNA CINDY+probe Ql (Unsp spec) Not detected Normal NOT DETECTED [facility] Comment on above: Result Comment: When diagnostic [...] for this test is supported by the [place] of Health and Human Service's declaration that [...] used). Performed By: #### I NFLUAB #### [facility] [address] [place], [place] [id number] Dr. Deepak Greenfield LACTATE/LACTIC ACIDon 2021 Lactate [Moles/Vol] 1.7 mmol/L Normal 0.4-1.9 [facility] Comment on above: Performed By: #### M G, CMP #### [facility] [address] [place] [address] Dr. Deepak Greenfield PROF 14(COMP METB)on 022 Albumin [Mass/Vol] 3.2 g/dL Critically low 3.4-5.0 [facility] Comment on above: Performed By: #### M G, CMP #### [facility] [address] [address] [address] Deepak Greenfield Albumin/Globulin [Mass ratio] 0.7 {ratio} Normal [facility] Comment on above: Performed By: #### M G, CMP #### [facility] [address] [address] [address] Deepak Greenfield ALP [Catalytic activity/Vol] 49 U/L Normal 46-116 [facility] Comment on above: Performed By: #### M G, CMP #### [facility] [address] [address] [address] Deepak Greenfield ALT [Catalytic activity/Vol] 41 U/L Normal 16-63 [facility] Comment on above: Performed By: #### M G, CMP #### [facility] [address] [address] [address] Deepak Greenfield Anion gap [Moles/Vol] 11.1 mmol/L Normal [facility] Comment on above: Performed By: #### M G, CMP #### [facility] [address] [address] [address] Deepak Greenfield AST [Catalytic activity/Vol] 29 U/L Normal 15-37 [facility] Comment on above: Performed By: #### M G, CMP #### [facility] [address] [address] [address] Deepak Greenfield Bilirubin [Mass/Vol] 0.5 mg/dL Normal 0.2-1.0 [facility] Comment on above: Performed By: #### M G, CMP #### [facility] [address] [address] [address] Deepak Greenfield Calcium [Mass/Vol] 9.1 mg/dL Normal 8.5-10.1 [facility] Comment on above: Performed By: #### M G, CMP #### [facility] [address] [address] [address] Deepak Greenfield Chloride [Moles/Vol] 108 mmol/L Critically high 98-107 [facility] Comment on above: Performed By: #### M G, CMP #### [facility] [address] [address] [address] Deepak Greenfield CO2 [Moles/Vol] 25.7 mmol/L Normal 21.0-32.0 [facility] Comment on above: Performed By: #### M G, CMP #### [facility] [address] [address] [address] Deepak Greenfield Creatinine [Mass/Vol] 0.89 mg/dL Normal 0.70-1.30 [facility] Comment on above: Performed By: #### M G, CMP #### [facility] [address] [address] [address] Deepak Greenfield EGFR-AF MALTESE >60 Normal >=60 [facility] Comment on above: Performed By: #### M G, CMP #### [facility] [address] [address] [address] Deepak Greenfield EGFR-NON AF MALTESE >60 Normal >=60 [facility] Comment on above: Performed By: #### M G, CMP #### [facility] [address] [address] [address] Deepak Greenfield Globulin (S) [Mass/Vol] 4.5 g/dL Normal [facility] Comment on above: Performed By: #### M G, CMP #### [facility] [address] [address] [address] Deepak Greenfield Glucose [Mass/Vol] 178 mg/dL Critically high 74-106 [facility] Comment on above: Performed By: #### M G, CMP #### [facility] [address] [address] [address] Deepak Greenfield Potassium [Moles/Vol] 3.8 mmol/L Normal 3.5-5.1 [facility] Comment on above: Performed By: #### M G, CMP #### [facility] [address] [address] [address] Deepak Greenfield Protein [Mass/Vol] 7.7 g/dL Normal 6.4-8.2 [facility] Comment on above: Performed By: #### M G, CMP #### [facility] [address] [address] [address] Deepak Greenfield Sodium [Moles/Vol] 141 mmol/L Normal 136-145 [facility] Comment on above: Performed By: #### M G, CMP #### [facility] [address] [address] [address] Deepak Greenfield Urea nitrogen [Mass/Vol] 16.0 mg/dL Normal 7.0-18.0 [facility] Comment on above: Performed By: #### M G, CMP #### [facility] [address] [address] [address] Deepak Greenfield Urea nitrogen/Creatinine [Mass ratio] 18.0 mg/mg Normal [facility] Comment on above: Performed By: #### M G, CMP #### [facility] [address] [address] [address] Deepak Greenfield TROPONIN, HIGH SENSITIVITYon 01-24-2022 HSTROP 6.4 pg/mL Normal 4.0-76.1 [facility] Comment on above: Result Comment: CUT- OFF POINTS HAVE BEEN ESTABLISHED BASED ON THE FOURTH UNIVERSAL DEFINITIONS OF MYOCARDIAL INFARCTION. THE UPPER REFERENCE LIMIT (URL) OF TROPONIN, DEFINED THE 99TH PERCENTILE OF cTnI DISTRIBUTION IN A REFERENCE POPULATION, HAS BEEN CONFIRMED THE DECISION THRESHOLD FOR MT DIAGNOSIS. Performed By: #### M G, CMP #### [facility] [address] [address] [address] Deepak Greenfield XR CHEST 1 Von [...] ANICETO CROCKER Date: 2022-01-24 15:28 Normal [facility] UA RANDOM W/MICROSCOPICon BACTERIA NONE SEEN Normal NONE SEEN [facility] Comment on above: Performed By: #### C VDTB #### [facility] [address] [place] [address] Dr. Deepak Greenfield Bilirubin Ql (U) Negative Normal NEGATIVE [facility] Comment on above: Performed By: #### C VDTBH #### [facility] [address] [place] [address] Dr. Deepak Greenfield CAST NONE SEEN Normal NONE SEEN [facility] Comment on above: Performed By: #### C VDTBH #### [facility] [address] [address] [address] Deepak Greenfield Clarity (U) CLEAR Normal CLEAR [facility] Comment on above: Performed By: #### C VDTBH #### [facility] [address] [place] [address] Dr. Deepak Greenfield Color (U) YELLOW Normal YELLOW [facility] Comment on above: Performed By: #### C VDTBH #### [facility] [address] [place] [address] Dr. Deepak Greenfield Crystals LM Nom (Urine sed) NONE SEEN Normal NONE SEEN [facility] Comment on above: Performed By: #### C VDTBH #### [facility] [address] [place] [address] Dr. Deepak Greenfield Epithelial cells LM Ql (Urine sed) RARE Normal NONE SEEN /RARE [facility] Comment on above: Performed By: #### C VDTBH #### [facility] [address] [place] [address] Dr. Deepak Greenfield Glucose Ql (U) Negative Normal NEGATIVE [facility] Comment on above: Performed By: #### C VDTBH #### [facility] [address] [place] [address] Dr. Deepak Greenfield Hemoglobin Ql (U) Negative Normal NEGATIVE [facility] Comment on above: Performed By: #### C VDTBH #### [facility] [address] [place] [address] Dr. Deepak Greenfield Ketones Ql (U) 15 mg/dl Abnormal NEGATIVE [facility] Comment on above: Performed By: #### C VDTBH #### [facility] [address] [address] [address] Deepak Greenfield LEUKOCYTES Negative Normal NEGATIVE [facility] Comment on above: Performed By: #### C VDTBH #### [facility] [address] [place] [address] Dr. Deepak Greenfield MUCOUS NONE SEEN Normal NONE SEEN [facility] Comment on above: Performed By: #### C VDTBH #### [facility] [address] [place] [address] Dr. Deepak Greenfield Nitrite Ql (U) Negative Normal NEGATIVE [facility] Comment on above: Performed By: #### C VDTBH #### [facility] [address] [address] Dr. Deepak Greenfield pH (U) 6.0 [pH] Normal 5-9 [facility] Comment on above: Performed By: #### C VDTBH #### [facility] [address] [place] [address] Dr. Deepak Greenfield RBC 0-2 Normal 0-2 [facility] Comment on above: Performed By: #### C VDTBH #### [facility] [address] [place] [address] Dr. Deepak Greenfield SPEC GRAVITY 1.020 Normal 1.005-<=1.025 [facility] Comment on above: Performed By: #### C VDTBH #### [facility] [address] [place] [address] Dr. Deepak Greenfield UA PROTEIN Negative Normal NEGATIVE/ TRACE [facility] Comment on above: Performed By: #### C VDTBH #### [facility] [address] [place] [address] Dr. Deepak Greenfield Urobilinogen Qn (U) 0.2 {Ottoniel'U}/dL Normal 0.2 - 1. 0 [facility] Comment on above: Performed By: #### C VDTBH #### [facility] [address] [place] [address] Dr. Deepak Greenfield WBC NONE SEEN Normal NONE SEEN [facility] Comment on above: Performed By: #### C VDTBH #### [facility] [address] [place] [address] Dr. Deepak Greenfield ALBUMINon 01-12-2022 Albumin [Mass/Vol] 3.4 g/dL Normal 3.4-5.0 [facility] Comment on above: Performed By: #### C VDTBH #### [facility] [address] [place] [address] Dr. Deepak Greenfield ALKALINE PHOSPHAon ALP [Catalytic activity/Vol] 46 U/L Normal 46-116 [facility] Comment on above: Performed By: #### C VDTBH #### [facility] [address] [place] [address] Dr. Deepak Greenfield AMMONIAon 01-12-2022 Ammonia (P) [Moles/Vol] 93 umol/L Critically high 11-32 [facility] Comment on above: Performed By: #### I NFLUAB #### [facility] [address] [place] [address] Dr. Deepak Greenfield BILIRUBIN CONJUGATED (DIRECT )on 01-12-2022 BILI, CONJUGATED 0.1 mg/dL Normal 0.0-0.2 [facility] Comment on above: Performed By: #### C VDTBH #### [facility] [address] [place] [address] Dr. Deepak Greenfield BILIRUBIN TOTALon 01-12-2022 Bilirubin [Mass/Vol] 0.4 mg/dL Normal 0.2-1.0 [facility] Comment on above: Performed By: #### C VDTBH #### [facility] [address] [place] [address] Dr. Deepak Greenfield CBC AUTO DIFFon 01-12-2022 BASO # 0.0 103/ul Normal 0.0-0.1 [facility] Comment on above: Performed By: #### M G, CMP #### [facility] [address] [place] [address] Dr. Deepak Greenfield Basophils/100 WBC (Bld) 0.3 % Normal 0.2-2.0 [facility] Comment on above: Performed By: #### M Lacy, CMP #### [facility] [address] [place] [address] Dr. Deepak Greenfield EO # 0.1 103/ul Normal 0.0-0.7 [facility] Comment on above: Performed By: #### M G, CMP #### [facility] [address] [place] [address] Dr. Deepak Greenfield Eosinophils/100 WBC (Bld) 1.3 % Normal 0.9-7.0 [facility] Comment on above: Performed By: #### M G, CMP #### [facility] [address] [place] [address] Dr. Deepak Greenfield Erythrocyte distribution width (RBC) [Ratio] 14.2 % Normal 11.0-15.0 [facility] Comment on above: Performed By: #### M G, CMP #### [facility] [address] [place] [address] Dr. Deepak Greenfield Hematocrit (Bld) [Volume fraction] 40.4 % Critically low 42.0-54.0 [facility] Comment on above: Performed By: #### M G, CMP #### [facility] [address] [place] [address] Dr. Deepak Greenfield Hemoglobin (Bld) [Mass/Vol] 13.1 g/dL Critically low 14.0-18.0 [facility] Comment on above: Performed By: #### M G, CMP #### [facility] [address] [place] [address] Dr. Deepak Greenfield IG # 0.01 10e3/ul Normal 0.00-0.03 [facility] Comment on above: Performed By: #### M G, CMP #### [facility] [address] [place] [address] Dr. Deepak Greenfield IG % 0.1 % Normal 0.0-0.5 [facility] Comment on above: Performed By: #### M G, CMP #### [facility] [address] [place] [address] Dr. Deepak Greenfield LYMPH # 3.3 103/ul Normal 1.2-3.8 [facility] Comment on above: Performed By: #### M G, CMP #### [facility] [address] [place] [address] Dr. Deepak Greenfield Lymphocytes/100 WBC (Bld) 42.3 % Normal 20.5-60.0 [facility] Comment on above: Performed By: #### M G, CMP #### [facility] [address] [place] [address] Dr. Deepak Greenfield MANUAL DIFF REQ NO Normal [facility] Comment on above: Performed By: #### M G, CMP #### [facility] [address] [place] [address] Dr. Deepak Greenfield MCH (RBC) [Entitic mass] 32.4 pg Normal 25.9-34.0 [facility] Comment on above: Performed By: #### M G, CMP #### [facility] [address] [place] [address] Dr. Deepak Greenfield MCHC (RBC) [Mass/Vol] 32.4 g/dL Normal 29.9-35.2 [facility] Comment on above: Performed By: #### M G, CMP #### [facility] [address] [place] [address] Dr. Deepak Greenfield MCV (RBC) [Entitic vol] 100.0 fL Critically high 80.0-94.0 [facility] Comment on above: Performed By: #### M G, CMP #### [facility] [address] [place] [address] Dr. Deepak Greenfield MONO # 0.6 103/ul Normal 0.3-0.8 [facility] Comment on above: Performed By: #### M G, CMP #### [facility] [address] [place] [address] Dr. Deepak Greenfield Monocytes/100 WBC (Bld) 7.6 % Normal 1.7-12.0 [facility] Comment on above: Performed By: #### M G, CMP #### [facility] [address] [place] [address] Dr. Deepak Greenfield NEUT # 3.8 103/ul Normal 1.4-6.5 [facility] Comment on above: Performed By: #### M G, CMP #### [facility] [address] [address] [address] Deepak Greenfield Neutrophils/100 WBC (Bld) 48.4 % Normal 43.0-75.0 [facility] Comment on above: Performed By: #### M G, CMP #### [facility] [address] [address] [address] Deepak Greenfield Platelet mean volume (Bld) [Entitic vol] 9.6 fL Normal 9.5-13.5 [facility] Comment on above: Performed By: #### M G, CMP #### [facility] [address] [address] [address] Deepak Greenfield PLT 315 103/ul Normal 150-450 [facility] Comment on above: Performed By: #### M G, CMP #### [facility] [address] [address] [address] Deepak Greenfield RBC 4.04 106/ul Critically low 4.70-6.10 [facility] Comment on above: Performed By: #### M G, CMP #### [facility] [address] [address] [address] Deepak Greenfield WBC 7.9 103/ul Normal 4.0-11.0 [facility] Comment on above: Performed By: #### M G, CMP #### [facility] [address] [address] [address] Deepak Greenfield DEPAKENE/VALPROICon 01-13-20 22 DEPAKENE 89.7 ug/ml Normal 50.0-100.0 [facility] Comment on above: Performed By: #### I NFLUAB #### [facility] [address] [address] [address] Deepak Greenfield PROF CHEM 8 (BAS METB)on Anion gap [Moles/Vol] 12.9 mmol/L Normal [facility] Comment on above: Performed By: #### I NFLUAB #### [facility] [address] [address] [address] Deepak Greenfield Calcium [Mass/Vol] 8.8 mg/dL Normal 8.5-10.1 [facility] Comment on above: Performed By: #### I NFLUAB #### [facility] [address] [address] [address] Deepak Greenfield Chloride [Moles/Vol] 103 mmol/L Normal 98-107 [facility] Comment on above: Performed By: #### I NFLUAB #### [facility] [address] [address] [address] Deepak Greenfield CO2 [Moles/Vol] 28.1 mmol/L Normal 21.0-32.0 [facility] Comment on above: Performed By: #### I NFLUAB #### [facility] [address] [place] [address] Dr. Deepak Greenfield Creatinine [Mass/Vol] 0.58 mg/dL Critically low 0.70-1.30 [facility] Comment on above: Performed By: #### I NFLUAB #### [facility] [address] [place] [address] Dr. Deepak Greenfield EGFR-AF MALTESE >60 Normal >=60 [facility] Comment on above: Performed By: #### I NFLUAB #### [facility] [address] [place] [address] Dr. Deepak Greenfield EGFR-NON AF MALTESE >60 Normal >=60 [facility] Comment on above: Performed By: #### I NFLUAB #### [facility] [address] [address] Dr. Deepak Greenfield Glucose [Mass/Vol] 117 mg/dL Critically high 74-106 [facility] Comment on above: Performed By: #### I NFLUAB #### [facility] [address] [address] [address] Deepak Greenfield Potassium [Moles/Vol] 4.0 mmol/L Normal 3.5-5.1 [facility] Comment on above: Performed By: #### I NFLUAB #### [facility] [address] [place] [address] Dr. Deepak Greenfield Sodium [Moles/Vol] 140 mmol/L Normal 136-145 [facility] Comment on above: Performed By: #### I NFLUAB #### [facility] [address] [place] [address] Dr. Deepak Greenfield Urea nitrogen [Mass/Vol] 7.0 mg/dL Normal 7.0-18.0 [facility] Comment on above: Performed By: #### I NFLUAB #### [facility] [address] [place] [address] Dr. Deepak Greenfield Urea nitrogen/Creatinine [Mass ratio] 12.1 mg/mg Normal [facility] Comment on above: Performed By: #### I NFLUAB #### [facility] [address] [place] [address] Dr. Deepak Greenfield SGOTon 01-12-2022 AST [Catalytic activity/Vol] 31 U/L Normal 15-37 [facility] Comment on above: Performed By: #### C VDTBH #### [facility] [address] [place] [address] Dr. [facility] ALT [Catalytic activity/Vol] 48 U/L Normal 16-63 [facility] Comment on above: Performed By: #### C VDTBH #### [facility] [address] [place] [address] Dr. Deepak Greenfield T PROTEIN SERUMon 01-12-2022 Protein [Mass/Vol] 7.3 g/dL Normal 6.4-8.2 [facility] Comment on above: Performed By: #### B MP #### [facility] [address] [place] [address] Dr. Deepak Greenfield XR CHEST 2 Von [...] by: ANICETO CROCKER Date: 2022-01-06 16:15 Normal [facility] XR DEXA BONE DENSITYon 11-20 XR [...] by: MARGARITO DAVIES Date: 2021-11-20 11:42 Normal [facility] US SCROTUMon 11-14-2021 US SCROTUM EXAMINATION: [...] KRISTIAN BILLINGS Date: 2021-11-14 07:10 Normal [facility] AMMONIAon 10-31-2021 Ammonia (P) [Moles/Vol] 88 umol/L Critically high 11-32 [facility] Comment on above: Performed By: #### M G, CMP #### [facility] [address] [place] [address] Dr. Deepak Greenfield AMMONIAon 10-30-2021 Ammonia (P) [Moles/Vol] 103 umol/L Critically high 11-32 [facility] Comment on above: Result Comment: SPEC IMEN SLIGHTLY HEMOLYZED MAY AFFECT AMM RESULT Performed By: #### I NFLUAB #### [facility] [address] [place] [address] Dr. Deepak Greenfield WOUND CULTUREon 10-23-2021 Bacteria identified Aer cx Nom (Unsp spec) Final report Normal [facility] Comment on above: Performed By: #### C XWND #### [facility] [address] [place] [address] Dr. Deepak Greenfield Result 1 Comment Normal [facility] Comment on above: Result Comment: No g rowth in 36 - 48 hours. Performed By: #### C XWND #### [facility] [address] [place] [address] Dr. Deepak Greenfield WOUND CULTUREon 10-02-2021 Bacteria identified Aer cx Nom (Unsp spec) Final report Normal [facility] Comment on above: Performed By: #### A MM #### [facility] [address] [place] [address] Dr. Deepak Greenfield Result 1 Mixed skin omid Normal [facility] Comment on above: Performed By: #### A MM #### [facility] [address] [place] [address] Dr. Deepak Greenfield AMYLASEon 09-22-2021 Amylase [Catalytic activity/Vol] 24 U/L Critically low 25-115 [facility] Comment on above: Performed By: #### C BC #### [facility] [address] [place] [address] Dr. Deepak Greenfield CBC AUTO DIFFon 09-22-2021 BASO # 0.0 103/ul Normal 0.0-0.1 [facility] Comment on above: Performed By: #### C VDTBH #### [facility] [address] [place] [address] Dr. Deepak Greenfield Basophils/100 WBC (Bld) 0.5 % Normal 0.2-2.0 [facility] Comment on above: Performed By: #### C VDTBH #### [facility] [address] [place] [address] Dr. Deepak Greenfield EO # 0.1 103/ul Normal 0.0-0.7 [facility] Comment on above: Performed By: #### C VDTBH #### [facility] [address] [place] [address] Dr. Deepak Greenfield Eosinophils/100 WBC (Bld) 1.3 % Normal 0.9-7.0 [facility] Comment on above: Performed By: #### C VDTBH #### [facility] [address] [place] [address] Dr. Deepak Greenfield Erythrocyte distribution width (RBC) [Ratio] 13.9 % Normal 11.0-15.0 [facility] Comment on above: Performed By: #### C VDTBH #### [facility] [address] [place] [address] Dr. Deepak Greenfield Hematocrit (Bld) [Volume fraction] 40.0 % Critically low 42.0-54.0 [facility] Comment on above: Performed By: #### C VDTBH #### [facility] [address] [address] [address] Dr. Deepak Greenfield Hemoglobin (Bld) [Mass/Vol] 13.0 g/dL Critically low 14.0-18.0 [facility] Comment on above: Performed By: #### C VDTBH #### [facility] [address] [address] Dr. Deepak Greenfield IG # 0.01 10e3/ul Normal 0.00-0.03 [facility] Comment on above: Performed By: #### C VDTBH #### [facility] [address] [address] [address] Deepak Greenfield IG % 0.2 % Normal 0.0-0.5 [facility] Comment on above: Performed By: #### C VDTBH #### [facility] [address] [place] [address] Dr. Deepak Greenfield LYMPH # 3.0 103/ul Normal 1.2-3.8 [facility] Comment on above: Performed By: #### C VDTBH #### [facility] [address] [place] [address] Dr. Deepak Greenfield Lymphocytes/100 WBC (Bld) 47.9 % Normal 20.5-60.0 [facility] Comment on above: Performed By: #### C VDTBH #### [facility] [address] [place] [address] Dr. Deepak Greenfield MANUAL DIFF REQ NO Normal [facility] Comment on above: Performed By: #### C VDTBH #### [facility] [address] [place] [address] Dr. Deepak Greenfield MCH (RBC) [Entitic mass] 32.9 pg Normal 25.9-34.0 [facility] Comment on above: Performed By: #### C VDTBH #### [facility] [address] [place] [address] Dr. Deepak Greenfield MCHC (RBC) [Mass/Vol] 32.5 g/dL Normal 29.9-35.2 [facility] Comment on above: Performed By: #### C VDTBH #### [facility] [address] [place] [address] Dr. Deepak Greenfield MCV (RBC) [Entitic vol] 101.3 fL Critically high 80.0-94.0 [facility] Comment on above: Performed By: #### C VDTBH #### [facility] [address] [place] [address] Dr. Deepak Greenfield MONO # 0.7 103/ul Normal 0.3-0.8 [facility] Comment on above: Performed By: #### C VDTBH #### [facility] [address] [place] [address] Dr. Deepak Greenfield Monocytes/100 WBC (Bld) 10.3 % Normal 1.7-12.0 [facility] Comment on above: Performed By: #### C VDTBH #### [facility] [address] [place] [address] Dr. Deepak Greenfield NEUT # 2.5 103/ul Normal 1.4-6.5 [facility] Comment on above: Performed By: #### C VDTBH #### [facility] [address] [place] [address] Dr. Deepak Greenfield Neutrophils/100 WBC (Bld) 39.8 % Critically low 43.0-75.0 [facility] Comment on above: Performed By: #### C VDTBH #### [facility] [address] [place] [address] Dr. Deepak Greenfield Platelet mean volume (Bld) [Entitic vol] 10.1 fL Normal 9.5-13.5 [facility] Comment on above: Performed By: #### C VDTBH #### [facility] [address] [place] [address] Dr. Deepak Greenfield PLT 311 103/ul Normal 150-450 [facility] Comment on above: Performed By: #### C VDTBH #### [facility] [address] [place] [address] Dr. Deepak Greenfield RBC 3.95 106/ul Critically low 4.70-6.10 [facility] Comment on above: Performed By: #### C VDTBH #### [facility] [address] [place] [address] Dr. Deepak Greenfield WBC 6.3 103/ul Normal 4.0-11.0 [facility] Comment on above: Performed By: #### C VDTBH #### [facility] [address] [place] [address] ABD/PELV W CONon [...] by: JAMIE ALICIA Date: 2021-09-22 02:34 Normal [facility] CT HEAD WO CONon 09-22-2021 CT [...] BRITTON FONTENOT Date: 2021-09-22 01:13 Normal [facility] LIPASEon 09-22-2021 Lipase [Catalytic activity/Vol] 28.0 U/L Critically low 73.0-393.0 [facility] Comment on above: Performed By: #### C BC #### [facility] [address] [place] [address] Dr. Deepak Greenfield PROF 14(COMP METB)on 022 Albumin [Mass/Vol] 3.3 g/dL Critically low 3.4-5.0 [facility] Comment on above: Performed By: #### B MP #### [facility] [address] [place] [address] Dr. Deepak Greenfield Albumin/Globulin [Mass ratio] 0.9 {ratio} Normal [facility] Comment on above: Performed By: #### B MP #### [facility] [address] [place] [address] Dr. Deepak Greenfield ALP [Catalytic activity/Vol] 38 U/L Critically low 46-116 [facility] Comment on above: Performed By: #### B MP #### [facility] [address] [place] [address] Dr. Deepak Greenfield ALT [Catalytic activity/Vol] 91 U/L Critically high 16-63 [facility] Comment on above: Performed By: #### B MP #### [facility] [address] [place] [address] Dr. Deepak Greenfield Anion gap [Moles/Vol] 10.2 mmol/L Normal [facility] Comment on above: Performed By: #### B MP #### [facility] [address] [place] [address] Dr. Deepak Greenfield AST [Catalytic activity/Vol] 50 U/L Critically high 15-37 [facility] Comment on above: Performed By: #### B MP #### [facility] [address] [address] [address] Deepak Greenfield Bilirubin [Mass/Vol] 0.3 mg/dL Normal 0.2-1.0 [facility] Comment on above: Performed By: #### B MP #### [facility] [address] [address] [address] Deepak Greenfield Calcium [Mass/Vol] 8.6 mg/dL Normal 8.5-10.1 [facility] Comment on above: Performed By: #### B MP #### [facility] [address] [address] [address] Deepak Greenfield Chloride [Moles/Vol] 106 mmol/L Normal 98-107 [facility] Comment on above: Performed By: #### B MP #### [facility] [address] [address] [address] Deepak Greenfield CO2 [Moles/Vol] 29.9 mmol/L Normal 21.0-32.0 [facility] Comment on above: Performed By: #### B MP #### [facility] [address] [address] [address] Deepak Greenfield Creatinine [Mass/Vol] 0.65 mg/dL Critically low 0.70-1.30 [facility] Comment on above: Performed By: #### B MP #### [facility] [address] [address] [address] Deepak Greenfield EGFR-AF MALTESE >60 Normal >=60 [facility] Comment on above: Performed By: #### B MP #### [facility] [address] [address] [address] Deepak Greenfield EGFR-NON AF MALTESE >60 Normal >=60 [facility] Comment on above: Performed By: #### B MP #### [facility] [address] [address] [address] Deepak Greenfield Globulin (S) [Mass/Vol] 3.7 g/dL Normal [facility] Comment on above: Performed By: #### B MP #### [facility] [address] [address] [address] Deepak Greenfield Glucose [Mass/Vol] 105 mg/dL Normal 74-106 [facility] Comment on above: Performed By: #### B MP #### [facility] [address] [address] [address] Deepak Greenfield Potassium [Moles/Vol] 4.1 mmol/L Normal 3.5-5.1 [facility] Comment on above: Performed By: #### B MP #### [facility] [address] [address] [address] Deepak Greenfield Protein [Mass/Vol] 7.0 g/dL Normal 6.4-8.2 [facility] Comment on above: Performed By: #### B MP #### [facility] [address] [address] [address] Deepak Greenfield Sodium [Moles/Vol] 142 mmol/L Normal 136-145 [facility] Comment on above: Performed By: #### B MP #### [facility] [address] [address] [address] Deepak Greenfield Urea nitrogen [Mass/Vol] 13.0 mg/dL Normal 7.0-18.0 [facility] Comment on above: Performed By: #### B MP #### [facility] [address] [address] [address] Deepak Greenfield Urea nitrogen/Creatinine [Mass ratio] 20.0 mg/mg Normal [facility] Comment on above: Performed By: #### B MP #### [facility] [address] [address] [address] Deepak Greenfield Vital Signs Date Time Vital Sign Value Performing Clinician Facility 05-31-2024 13:05-0500 Diastolic blood pressure 64 mm[Hg] Rodriguez Rashel DO Work Phone: [facility] 05-31-2024 13:05-0500 Systolic blood pressure 108 mm[Hg] Rodriguez Vang DO Work Phone: [facility] 03-07-2024 11:34-0500 Diastolic blood pressure 88 mm[Hg] Rodriguez Rashel DO Work Phone: [facility] 03-07-2024 11:34-0500 Heart rate 68 /min Rodriguez Rashel DO Work Phone: [facility] 03-07-2024 11:34-0500 SaO2% (BldA) [Mass fraction] 98 % Rodriguez Rashel DO Work Phone: [facility] 03-07-2024 11:34-0500 Systolic blood pressure 128 mm[Hg] Rodriguez Rashel DO Work Phone: [facility] 12-16-2022 10:18-0400 Blood Pressure Location Arline Lue [facility] 12-16-2022 10:18-0400 Body temperature 98.06 [degF] Arline Lue [facility] 12-16-2022 10:18-0400 Diastolic blood pressure 78 mm[Hg] Arline Lue [facility] 12-16-2022 10:18-0400 Heart rate 84 /min Arline Lue [facility] 12-16-2022 10:18-0400 Systolic blood pressure 128 mm[Hg] Arline Lue [facility] 12-23-2021 11:30-0400 Body height 157.48 cm Antionette Leonel Other [employer] [facility] [employer] Other 12-23-2021 11:30-0400 Body mass index (BMI) [Ratio] 25.79 kg/m2 Antionette Leonel Other [employer] [facility] [employer] Other 12-23-2021 11:30-0400 Body temperature 98.5 [degF] Antionette Leonel Other [employer] Other 12-23-2021 11:30-0400 Body weight 63.96 kg Antionette Leonel Other [employer] Other 12-23-2021 11:30-0400 Diastolic blood pressure 70 mm[Hg] Antionette Leonel Other [employer] Other 12-23-2021 11:30-0400 Respiratory rate 20 /min Antionette Leonel Other [employer] Other 12-23-2021 11:30-0400 SaO2% (BldA) [Mass fraction] 99 % Antionette Leonel Other [employer] Other 12-23-2021 11:30-0400 Systolic blood pressure 120 mm[Hg] Antionette Leonel Other [employer] Other 10-22-2021 10:29-0400 Blood Pressure Location Arline Lue [facility] 10-22-2021 10:29-0400 Diastolic blood pressure 92 mm[Hg] Arline Lue [facility] 10-22-2021 10:29-0400 Heart rate 100 /min Arline Lue [facility] 10-22-2021 10:29-0400 Respiratory rate 16 /min Arline Lue [facility] 10-22-2021 10:29-0400 Systolic blood pressure 137 mm[Hg] Arline Levine [facility] Encounters Encounter Date Encounter Type Care Provider Facility Start: 07-11-2024 End: 07-11-2024 ambulatory [facility] Work Phone: Start: 07-11-2024 End: 07-11-2024 Patient encounter procedure [facility] Work Phone: Start: 06-12-2024 ambulatory UNKNOWN PROVIDER Facili ty:[facility] Start: 06-12-2024 End: 06-12-2024 ambulatory AP SCOTT Facility:[facility] Start: 06-02-2024 Encounter for other preprocedural examination UNKNOWN PROVIDER [facility] [employer] Start: 06-02-2024 End: 06-02-2024 ambulatory BOYD [...] surgery center Jared Adair DDS Work Phone: [facility] Start: 03-07-2024 End: 03-07-2024 Bamboo flowsheet Rodriguez Rashel DO Work Phone: [employer] Start: 03-07-2024 End: 03-07-2024 Bamboo flowsheet Rodriguez Rashel DO Work Phone: [employer] [facility] Start: 03-07-2024 End: 03-07-2024 Office outpatient visit 25 minutes Rodriguezsusan Vang DO Work Phone: [employer] 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); Spastic hemiplegia affecting dominant side (CMS/HCC); Spastic hemiplegia, nondominant side (HCC) (CMS/HCC); Severe intellectual disabilities (CMS/HCC) Start: 03-07-2024 End: 03-07-2024 ambulatory RODRIGUEZ RASHEL Not Available Start: 01-11-2024 End: 01-11-2024 ambulatory [facility] Work Phone: Start: 01-11-2024 End: 01-11-2024 Patient encounter procedure [facility] Work Phone: Start: 11-07-2023 End: 11-07-2023 Letter encounter Abundio Mares DDS Work Phone: [facility] Start: 08-25-2023 End: 08-25-2023 ambulatory RODRIGUEZ RASHEL Not Available Start: 07-06-2023 End: 07-06-2023 ambulatory [facility] Work Phone: Start: 07-06-2023 End: 07-06-2023 Patient encounter procedure [facility] Work Phone: Start: 01-05-2023 End: 01-05-2023 ambulatory Antionette Leonel Other [employer] Other Start: 01-05-2023 Office outpatient vi sit 25 minutes Antionette Leonel [facility] Start: 12-16-2022 End: 12-17-2022 [facility]ulatory [facility] Start: 12-16-2022 End: 12-16-2022 Patient encounter procedure Arline Levine [facility] Start: 08-04-2022 End: 08-04-[address] FAM VENTURA Facility: Start: 07-29-2022 End: 08-02-2022 Evaluation and management of inpatient DR FAM VENTURA Facility:[facility] Start: 07-26-2022 End: 07-27-[address] FAM VENTURA Facility: Start: 07-23-2022 End: 07-24-2022 ambulatory FAM VENTURA Facility[place] Start: 07-23-2022 End: 07-23-2022 Patient encounter procedure FAM VENTURA [facility] Start: 06-23-2022 End: 06-23-2022 ambulatory Antionette Leonel Other [employer] Other Start: 06-23-2022 Office outpatient vi sit 25 minutes Antionette Leonel [facility] Start: 06-03-2022 End: 06-04-[address] FAM VENTURA Facility:[facility] Start: 05-08-2022 Letter encounter Abundio Mares DDS Work Phone: [facility] Start: 04-22-2022 End: 04-23-[address] FAM VENTURA Facility:[facility] Start: 03-19-2022 End: 03-20-[address] FAM VENTURA Facility:[facility] Start: 03-10-2022 End: 03-11-[address] FAM VENTURA Facility:[facility] Start: 01-24-2022 End: 01-24-[address] DIAMOND HAY . Facility:[facility] Start: 01-18-2022 End: 01-18-2022 ambulatory ANJELICA DOLL . Facility:[facility] Start: 01-13-[address] [facility] Start: 01-12-2022 End: 01-13-[address] RODRIGUEZ VANG Facility:[facility] Start: 01-06-2022 End: 01-07-[address] FAM VENTURA Facility:[facility] Start: 12-23-2021 End: 12-23-2021 ambulatory Antionette Leonel Other [facility] [employer] Other Start: 12-23-2021 Office outpatient vi sit 25 minutes Antionette Leonel [facility] Start: 12-16-2021 End: 12-17-2021 Patient encounter procedure Mora Correabarry [facility] Work Phone: [facility] Start: 12-10-2021 End: 12-10-2021 Patient encounter procedure Arline Levine [facility] Start: 11-20-2021 End: 11-21-[address] FAM VENTURA Facility:[facility] Start: 11-13-2021 End: 11-14-2021 ambulatory ARLINE LEVINE . Facility:[facility] Start: 10-31-2021 End: 11-01-[address] FAM VENTURA Facility:[facility] Start: 10-22-2021 End: 10-22-2021 Patient encounter procedure Arline Levine [facility] Start: 10-21-2021 End: 10-21-[address] FAM VENTURA Facility:[facility] Start: 09-29-2021 End: 09-29-[address] FAM VENTURA Facility:[facility] Start: 09-22-2021 End: 09-22-2021 ambulatory ABBI SANCHEZ Facility:[facility] Procedures Date Procedure Procedure Detail Performing Clinician Start: 05-31-2024 Elec julias implt npgt phys/qhp w/o programming Rodriguez Vnag DO Work Phone: Start: 03-13-2024 Elec julisa implt npgt phys/qhp w/o programming Rodriguez Vang DO Work Phone: Plan of Treatment Date Care Activity Detail Author Start: 02-01-2030 Shingles (RZV) Vacci ne (1 of 2) Shingles (RZV) Vaccine (1 of 2) [facility] Start: 11-20-2024 End: 11-20-2024 Patient encounter procedure 11/20/2024 11:20 AM EDT Office Visit YENN[facility]ER [facility] [address] [place] [phone] Marissa Gonzalez NP [address] [place] [address] [facility] Start: 06-12-2024 Subsequent hospital visit by physician 06/12/2024 Hospital Encounter [facility] [address] [id number] Ap Scott, DDS [address] [place] [address] [facility] Start: 06-02-2024 End: 06-02-2024 Patient encounter procedure 06/02/2024 1:30 PM EST Office Visit [facility] [address] [place] [address] Boyd Johnson MD [address] [place], [place] [id number] [facility] Start: 05-31-2024 End: 05-31-2024 Patient encounter procedure [facility] [address] Comment on above: Arrived Start: 03-07-2024 End: 03-07-2024 Patient encounter procedure 03/07/2024 11:30 AM EST Office Visit [facility] [address] [place] [phone] Rodriguez Vang DO [address] [place] [address] Arrived [facility] [address] Comment on [...] (#1) [facility] Start: 02-01-2015 [facility]id [facility] Start: 05-20-2012 Annual wellness visit Annual [facility] Visit ([id number]) [facility] Start: 02-01-2007 HPV [...] [facility] Start: 02-01-1995 HIV screening [facility] Test [facility] Start: 1980 COVID-19 Vaccine (#1) COVID-19 Vacci ne (#1) [facility] Start: 1980 Medicare Annual Wellness (AWV) Medicare Annual Wellness (AWV) [facility] DENTAL RESTORATIONS DENTAL ANI RATIONS Routine scheduled Caries [facility] Immunizations Immunization Date Immunization Notes Care Provider Fa cility 03-04-2020 pneumococcal conjuga te vaccine, 13 valent Mora Powell [facility] Work Phone: [facility] 01-26-2018 influenza, injectabl e, quadrivalent, preservative free Mora Urmetz RDH Work Phone: [facility] 01-26-2018 influenza virus vaccine, unspecified formulation Mora Urmetz RDH Work Phone: [facility] 02-10-2017 influenza virus vaccine, unspecified formulation Arline Lue [facility] 02-10-2017 influenza, injectabl e, quadrivalent, contains preservative Mora Urmetz RDH Work Phone: [facility] 02-07-2015 influenza virus vaccine, unspecified formulation Arline Lue [facility] 02-07-2015 influenza, injectabl e, quadrivalent, preservative free Mora Urmetz RDH Work Phone: [facility] 10-23-2014 pneumococcal polysaccharide vaccine, 23 valent Mora Urmetz RDH Work Phone: [facility] 12-31-2010 influenza virus vaccine, unspecified formulation Arline Lue [facility] 12-31-2010 influenza, seasonal, injectable Mora Urmetz RDH Work Phone: [facility] 03-06-2009 novel [id number], preservative-free, injectable Mora Urmetz RDH Work Phone: [facility] 02-09-2008 influenza virus vaccine, whole virus Mora Urmetz RDH Work Phone: [facility] 02-09-2008 influenza, whole Arline Lue [facility] NEGATED: Highlighted row has not occurred!12-10-2021 SARS-CoV-2 mRNA (tozinameran 5y-11y) vaccine Arline Lue [facility] Payers Date Payer Category Payer Medicaid [id number] 2011 Medicare [id number] 2011 Medicare FFS MEDICARE Member Subscriber Plan / Payer (Effective 2011-Present) Name: Parish Lopez Member ID: [id number] Relation to Subscriber: Self Name: Parish Lopez Subscriber ID: [id number] Payer ID: Not on file Group ID: Not on file Type: Medicare Address: [address] [address] [id number] 1980 Unknown [id number] 2.16.840.1.169370.3.579.2.593 1980 Unknown [id number] 2.16.840.1.630459.3.579.2.593 1980 Unknown [id number] 2.16.840.1.144655.3.579.2.593 1980 Unknown [id number] 2.16.840.1.156792.3.579.2.593 1980 Unknown [id number] 2.16.840.1.664560.3.579.2.727 1980 Unknown [id number] 2.16.840.1.082329.3.579.2.727 1980 Unknown [id number] 2.16.840.1.407869.3.579.2.1259 1980 Unknown [id number] 2.16.840.1.590937.3.579.2.1259 1980 Unknown [id number] 2.16.840.1.629014.3.579.2.1259 1980 Unknown [id number] 2.16.840.1.769976.3.579.2.732 1980 Unknown [id number] 2.16.840.1.880207.3.579.2.732 1980 Unknown [id number] 2.16.840.1.994858.3.579.2.732 1980 Unknown [id number] 2.16.840.1.344762.3.579.2.732 1980 Unknown [id number] 2.16.840.1.011475.3.579.2.732 1980 Unknown [id number] 2.16.840.1.579607.3.579.2.732 1959 Medicaid [id number] 2.16.840.1.920843.19 1959 Medicare [id number] 2.16.840.1.817555.19 1953 Unknown [id number] 2.16.840.1.862930.3.579.2.593 1953 Unknown [id number] 2.16.840.1.480603.3.579.2.593 1953 Unknown [id number] 2.16.840.1.256295.3.579.2.593 1953 Unknown [id number] 2.16.840.1.112634.3.579.2.593 1953 Unknown [id number] 2.16.840.1.547297.3.579.2.593 1953 Unknown [id number] 2.16.840.1.390556.3.579.2.593 1953 Unknown [id number] 2.16.840.1.740679.3.579.2.593 1953 Unknown [id number] 2.16.840.1.431956.3.579.2.593 1953 Unknown [id number] 2.16.840.1.618537.3.579.2.593 1953 Unknown [id number] 2.16.840.1.926658.3.579.2.593 1953 Unknown [id number] 2.16.840.1.256798.3.579.2.593 1953 Unknown [id number] 2.16.840.1.001105.3.579.2.593 1953 Unknown [id number] 2.16.840.1.407925.3.579.2.593 1953 Unknown [id number] 2.16.840.1.281210.3.579.2.593 Self-pay Self Pay [id number] Social History Date Type Detail Facility Tobacco smoking status No Smokin g Status Entered [facility] Start: 11-02-2022 End: 05-31-2024 Sex Assigned At Male [facility] Start: 03-28-2020 [facility] Start: 1980 [facility] smoking status No Smokin g Status Entered [facility] Start: 11-02-2022 End: 12-16-2022 Tobacco smoking status Never smoked tobacco (finding) [facility] Tobacco smoking status Never [facility] Start: 1980 Sex Assigned At Male [facility] Start: 11-02-2022 End: 05-31-2024 Alcoholic beverage intake Ex-drinker (finding) [facility] Start: 11-02-2022 End: 05-31-2024 History of Social function [facility] Start: 02-21-2012 End: 07-11-2024 Sex Male (finding) [facility] Functional Status Date Assessment Result Facility 12-16-2022 Functional Status N/A [facility] 12-10-2021 Functional Status N/A [facility] 10-22-2021 Functional Status N/A [facility] Clinical Notes 10-22-2021 to 06-12-2024 Rodriguez Vang, [...] Beatris Thompson DDS 06/12/2024 6:59 AM [facility] [employer] [facility] 06-02-2024 Note EXAMINATION: XR CHES T [...] and agree with the resident's interpretation. The [employer] [facility] 06-02-2024 Note Do not eat or [...] procedure. Contact the Pre-Surgical Evaluation department at [phone] or your surgeon's office with any additional questions [facility] Pre-Admission Serjio bajwa Consultation [place] Lopez, [id number] 44 year old Male 06/02/[address] [facility] by Dr. Zamora due to significant PMH of Seizures, mental disability, hypothyroid undergoing dental restorations 06/12 [facility] Triage Risk Score Total Score: [...] extraction; Surgeon: Ap Scott DDS; Location: [facility] Surgery Center; Service: Dental Past Medical History and Review of Systems Pulmonary (+) COPD (-) sleep apnea Dental ROS (+) teeth problems missing Endo (+) hyperthyroidism Neuro/Psych (+) seizures Comment: intellectual disability Vagus nerve stimulator Cardiovascular (+) hyperlipidemia (-) hypertension, past MT, CAD, angina GI/Hepatic/Renal (+) GERD (-) renal [...] appropriate examinati (more content not included)... 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 documented in this encounter [facility] 03-07-2024 History of Present illness Narrative No [...] disorder) ADD/ADHD ADHD (attention deficit hyperactivity disorder) (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) Past Surgical History: Procedure Laterality Date [...] 06/20 full Model: AspireSR Curry Rocha #: [id number] Manufactured: 2020 Implant Date: 09/09/2021 Assessment/Plan Diagnoses [...] clinic: 6 months. documented in this encounter [facility] 01-05-2023 Evaluation note Encounter Date Diagnosis Assessment Notes Dec, COPD (chronic obstructive pulmonary disease) (ICD-10 - J44.9) [employer] Other 08-30-2023 Hospital Discharge instructions Patient Education [...] provider. Document Revised: 08/14/2021 Document Reviewed: 08/14/2021 [employer] Patient Education 2022 [facility]. Follow Up Care 12/10/2021 11:51:23 With:Abner BYRNE, JUNIOR Hawk, URO Address: When: Unknown Comments:LEN[facility] [employer] 03-07-2023 Evaluation note* Encounter Date Diagnosis Assessment Notes Treatment Notes Treatment Clinical Notes Jun, COPD (chronic obstructive pulmonary disease) (ICD-10 - J44.9) Continue with respiratory regemin, including VEST therapy, as you currently are doing. Call office with respiratory questions or concerns. [facility] Other 09-06-2022 Evaluation note* Encounter Date Diagnosis Assessment Notes Treatment Notes Treatment Clinical Notes Dec, COPD (chronic obstructive pulmonary disease) (ICD-10 - J44.9) Continue with VEST therapy twice a day. Ok to increase to TID if needed. [employer] Other 08-30-2022 Instructions* Patient Instructions* Mora Powell RDH - 12/16/2021 11:57 AM EDT Pt presented today for OR evaluation. Limited eval was completed. Pt's case is not urgent updated contact information and placed Pt on OR list. Step by step process for OR flyer was given to caregiver. Please wait for phone call from OR coordinator. documented in this [id number] History of Present illness Narrative* Mora Powell RDH - 12/16/2021 11:42 AM EDT ----- Thursday, December 16, 2021 at 12:03:50 PM ----- ----- Provider: [id number] Callahanenist -- Clinic: [place] ----- [facility], Pt is ready for tx. Pt presented for dental evaluation for future OR. Caregiver in the room. Patient is non-verbal. Severe intellectual disability, seizure disorder Caregiver stated patient is not pain and no complaining. Radiograph taken today: no possible due to patient behavior Case requested for OR. Guardian mother Katia Lopez. [phone]. [facility] [phone] [id number] [id number] ( [facility] pt's appt) AVS printed and handed flyer for step by step instruction of OR process to Caregiver exam By: Elliott Ham [facility] [place]. OR ----- Signed on Thursday, December 16, 2021 at 12:18:18 PM ----- ----- Provider: Julia Adams DDS -- Clinic: [place] ----- documented in this [id number] Hospital Discharge instructions Patient Education 12/10/2021 11:47:35 [...] nerve stimulation). For women, using a medical record consultant to prevent urine leaks. This is a [...] right after experiencing incontinence. General instructions Take cxtu-eso-miezcjy and prescription medicines only as told by [...] 05/13/2005 Document Revised: 04/15/2018 Document Reviewed: 07/15/2017 [employer] Patient Education 2020 [facility]. Follow Up Care 10/22/2021 11:38:20 With:Abner BYRNE, JUNIOR Hawk, URO Address: When:1 year Comments:W/ renal US [facility] 07-06-2022 Hospital Discharge instructions Patient Education [...] nerve stimulation). For women, using a medical record consultant to prevent urine leaks. This is a [...] right after experiencing incontinence. General instructions Take ayya-qoe-ujpfisq and prescription medicines only as told by [...] 05/13/2005 Document Revised: 04/15/2018 Document Reviewed: 07/15/2017 [employer] Patient Education 2020 [facility]. 10/22/2021 11:42:30 Renal Mass Renal Mass A [...] provider gives to you. In general: Take jwzt-dta-wqegubs and prescription medicines only as told by [...] 10/31/2014 Document Revised: 05/12/2018 Document Reviewed: 05/12/2018 [employer] Patient Education 2020 [facility]. Follow Up Care 09/22/2021 14:10:46 With:Arline Levine MD, URL, URO Address: When:1 month [facility] evaluation + Plan note Future Appointments Appointment Date:11/19/2021 10:00:00 AM Scheduled Provider:Arline Levine MD Location:[facility] Appointment Type:URO Office Visit [facility] evaluation + Plan note Future Appointments Appointment Date:12/16/2022 10:15:00 AM Scheduled Provider:Arline Levine MD Location:[facility] Appointment Type:URO Office Visit [facility] evaluation note* Diagnosis Onset Date Resolution Status COPD (chronic obstructive pulmonary disease) acute Severe intellectual disability acute [facility] Work Phone: Evaluation note* Diagnosis Generalized [...] intellectual disability acute July 11, 2024 9:09am [facility] Work Phone: History general Narrative - Reported* Type Description Date Medical History Mental retardation Medical History Seizure Disorder Medical History Tristen Syndrome Medical History ADD Medical History Hypothyroidism Medical History Spastic Quadraparesis Medical History Osteoporosis Medical History Tristen-Beuren syndrome Medical History Seizure disorder Medical History Seizure disorder Medical History COPD Surgical History VNS REPLACED 2021 [facility] Other Hospital course Narrative No data available for this section [facility] Hospital Discharge instructions No data available for this section [facility] No data available for this section [facility] Summary Purpose Family History No [...] Care Team (unrecognized sect ion and content) Transitional Care Nurse Relationship Specialty Start Date End Date Abundio Mares DDS [address] [place] [address] Resident Dentistry 02/23/20 Transitional Care Nurse Relationship Specialty Start Date End Date Abundio Mares DDS [address] [place] [address] Resident Dentistry 02/23/20 Team Status: Active Member Role Status Dates Fam Ventura DO Primary Care Provider Active Team Status: Inactive Member Role Status Dates Fam Ventura DO Primary Care Provider Active Start: July 06, 2023 End: July 06, 2023 Antionette Castaneda APRN [facility] Attending Provider Active Start: July 06, 2023 End: July 06, 2023 Transitional Care Nurse Relationship Specialty Start Date End Date Abundio Mares DDS [address] [place] [address] Resident Dentistry 02/23/20 Team Status: Inactive Member Role Status Dates Fam Ventura DO Primary Care Provider Active Start: January 11, 2024 End: January 11, 2024 Antionette Castaneda APRN [facility] Attending Provider Active Start: January 11, 2024 End: January 11, 2024 [place] Active Start: 2023 End: January 11, 2024 Transitional Care Nurse Relationship Specialty Start Date End Date Unallocated, Faye Fermin MD [address] [place] [id number] PCP - General 09/23/22 Fam Ventura MD [address] [place] [address] Referring Physician Orthopaedic Surgery 09/23/22 Transitional Care Nurse Relationship Specialty Start Date End Date Unallocated, Faye Fermin MD [address] [place] [id number] PCP - General 09/23/22 Fam Ventura MD [facility] [address] [place] [address] Referring Physician Orthopaedic Surgery 09/23/22 Transitional Care Nurse Relationship Specialty Start Date End Date Abundio Mares [address] [address] Resident Dentistry 02/23/20 Transitional Care Nurse Relationship Specialty Start Date End Date Abundio Mares DD [address] [place] [address] Resident Dentistry 02/23/20 Transitional Care Nurse Relationship Specialty Start Date End Date Unallocated, Faye Fermin MD [address] [place] [id number] PCP - General 09/23/22 Fam Ventura MD [phone] [place], [place] [id number] Referring Physician Orthopaedic Surgery 09/23/22 Team Status: [...] and content) DATE CREATED AUTHOR 08/05/2022 [facility] DATE CREATED AUTHOR AUTHOR'S ORGANIZ ATION 01/26/2023 [facility] DATE CREATED AUTHOR AUTHOR'S ORGANIZ ATION 06/02/2024 [facility] DATE CREATED AUTHOR AUTHOR'S ORGANIZ ATION 06/19/2024 [facility] [employer] Goals (unrecognized section and content) Goals [...] BE BASED ON THE PRIMARY CLINICAL RECORDS. [employer] [facility]. provides no warranty or guarantee of the accuracy or completeness of information in this document.
[2024-10-05 10:33] LABS: Ammonia 61 umol/L (11-32)
== END 2024-10-05 09:29 | disposition home or self-care (01) ==
LOC: LAB 09:34
PROVIDERS: PCP Family Medicine; Visit Provider Family Medicine
DX: K76.82 Hepatic encephalopathy (principal); G40.909 Epilepsy, unspecified, not intractable, without status epilepticus; Z79.899 Other long term (current) drug therapy; K59.00 Constipation, unspecified
CPT/HCPCS: 36415; 82140

== ENCOUNTER 2024-11-02 09:37 | Outpatient (OUT) | payer MEDICARE, MEDICAID, SELFPAY ==
--- OUTSIDE RECORDS SUMMARY | 2024-11-02 09:59 | XMS_ITS | CCD ---
Author Organization [facility] CliniSyut Care Team Providers Care Consumer Marketing Manager Name Role Phone FAM ACEVEDO Primary Care Physician Abundio Mares DDS Unavailable Antionette Castaneda Unavailable LORENZO, DR FAM Duran Attending Unavailable ACEVEDO, DR FAM Duran Admitting Unavailable ACEVEDO, DR FAM Duran Primary Care Unavailable ACEVEDO, DR FAM Duran Consulting Unavailable LUE ., ARLINE Schwarz Attending Unavailable LUE ., ARLINE Schwarz Admitting Unavailable ACEVEDO, DR FAM Duran Consulting [...] SOPHIA Consulting Unavailable JBARA, GURJIT Consulting Unavailable ACEVEDO, DR FAM Duran Primary [...] Unavailable ACEVEDO, DR FAM Duran Attending Unavailable KlippAniceto mattson Consulting Unavailable RASHEL, DR FRIAS Attending Unavailable ACEVEDO, DR FAM Duran Primary Care Unavailable RASHEL, DR FRIAS Admitting Unavailable ACEVEDO, DR FAM Duran Admitting Unavailable ACEVEDO, DR FAM Duran Consulting Unavailable ACEVEDO, DR FAM Duran Primary Care Unavailable ACEVEDO, DR FAM Duran Attending Unavailable DAVIESMARGARITO Consulting Unavailable ACEVEDO, DR FAM Duran Admitting [...] .ANJELICA Consulting Unavailable SHARMILA .ANJELICA Attending Unavailable ACEVEDO, DR FAM Duran Primary Care Unavailable SHARMILA .ANJELICA Admitting Unavailable HAY ., DR FIELDS Consulting Unavailable HAY ., DR FIELDS Attending Unavailable ACEVEDO, DR FAM Duran Primary Care Unavailable HAY ., DR FIELDS Admitting Unavailable KlippAniceto mattson Consulting Unavailable Arline Levine Attending Unavailable ACEVEDO, FAM Referring Unavailable ACEVEDO, FAM Attending Unavailable ACEVEDO, FAM Admitting Unavailable Abundio Mares DDS Unavailable Fam Acevedo MD Unavailable Unallocated , [place] Provider Primary Care Provi scotty RODRIGUEZ KISER Attending Unavailable RASHEL, RODRIGUEZ Attending [...] [amoxicillin-clav ulanate] Drug Allergy Unknown [facility] (17 sources) Phenytoin; Translations: [phenytoin] Drug Allergy 3 Unknown [facility] (20 sources) Promethazine; Translations: [promethazine] Drug Allergy 7 Unknown [facility] (14 sources) Phenytoin; Translations: [PHENYTOIN SODIUM EXTENDED] Drug Allergy 7 Unknown [facility] (14 sources) Amoxicillin-Pot Clavulanate; Translations: [AMOXICILLIN-POT CLAVULANATE] Propensity to adverse reactions to drug 7 Unknown [facility] (3 sources) 4-Aminobenzoic Acid; Translations: [PERTUSSIS VACCINES] Drug Allergy 5 [facility] (1 source) Amoxicillin / Clavulanate Drug Allergy 4 [facility] (1 source) Levamisole Drug Allergy 4 [facility] (1 source) metroNIDAZOLE Drug Allergy [facility] (1 source) Phenytoin Drug Allergy 4 [facility] (1 source) remdesivir (investigational use) Drug allergy (disorder) [facility] (9 sources) Amoxicillin Drug Allergy 3 Unknown [facility] (7 sources) Clavulanate Drug Allergy 3 Unknown [facility] Medications Current Medications Medication Drug Class(es) Dates Sig (Normalized) Sig (Original) Acetaminophen (10 sources) Start: 12-16-2022 acetaminophen Refills(s) 0 Start Date: 12/16/22 Status: Ordered Start: 03-28-2020 Acetaminophen 650 mg Suppository Active 650 MG DE EVERY 4-6 HOURS as needed for Elevated Temp March 28, 2020 1:00am Start: 03-28-2020 Acetaminophen Active 650 MG DE EVERY 4-6 HOURS March 28, 2020 1:00am [...] hrs Active albuterol 0.83 mg/ml inhalation solution (14 sources) beta2-Adrenergic Agonist Start: 06-28-2023 take 2.5 [...] wheezing Start Date: 07/04/15 Status: Ordered albuterol (PROVE NTIL) (2.5 MG/3ML) 0.083% nebulizer solution Use 2.5 mg via nebulizer every 4 hours as needed for Wheezing. Active albuterol 0.833 mg/ml / ipratropium bromide 0.167 mg/ml inhalation solution (7 sources) Anticholinergic, beta2-Adrenergic Agonist Start: 03-28-2020 take [...] 3ml Inhalation qid as needed Apr, Active Allergy Relief (4 sources) Start: 07-04-2015 [...] day Active budesonide 0.25 mg/ml inhalation suspension (14 sources) Corticosteroid Start: 06-28-2023 take 0.5 mg [...] with food Orally Once a day Active cholecalciferol 0.125 mg oral capsule (1 source) Vitamin D take 1 capsule by mouth once daily Cholecalciferol (Vitamin D3) 125 MCG (5000 UT) CAPS Take 125 mcg by mouth daily. Active clonazePAM 0.25 mg disintegrating oral tablet (7 sources) Benzodiazepine Start: 03-28-20 20 Clonazepam Active 0.25 MG TRANSLINGU Twice daily March 28, 2020 1:00am Start: 03-28-2020 Clonazepam 0.2 5 mg Tablet,Disintegrating Active 0.25 MG TRANSLINGU Twice daily as needed for Cluster of 5 seizures March 28, 2020 1:00am Cough and Chest Congestion (4 sources) Start: 10-22-2021 Cough and Ches t Congestion Refill(s) 0 Start Date: 10/22/21 Status: Ordered 1 ml denosumab 60 mg/ml prefilled syringe (1 source) RANK Ligand Inhibitor denosumab (Prolia) 60 MG/ML injection Inject 60 mg under the skin. Every 6 months Active diazePAM 10 mg oral tablet (14 sources) Benzodiazepine Start: 10-22-2021 take 1 mg rectal route once Diastat AcuDial adult mg, Rectal, Once, Refills(s) 0 Start Date: 10/22/21 Status: Ordered Start: 03-28-2020 End: 07-06-2023 take 1 tablet rectal route every two hours as needed Diazepam 10 mg tablet Active 5 MG PO Q2H as needed for 3 or more seizures July 06, 2023 10:24am 10MG RECTAL GEL, PATIENT TAKES IT DE - wont let me save without route. Start: 03-28-2020 End: 07-06-2023 apply 10 mg rectal route every two hours Diazepam Active 5 MG PO Q2H July 06, 2023 10:24am 10MG RECTAL GEL, PATIENT TAKES IT DE - wont let me save without route. Start: 07-05-2015 diazepam 10 mg , Rectal, PRN Seizure, Refills(s) 0 Start Date: 07/05/15 Status: Ordered diazePAM (DIASTA T) 10 MG rectal gel Insert 1 Each in the rectum as needed for Other (for 3 or more seizures in 2 hours; may repeat in 2 hours as needed). Active docusate sodium 100 mg oral capsule (17 sources) Start: 10-22-2021 take 1 capsule by mo uth twice daily as needed for constipation docusate sodium 100 mg Cap 100 mg = 1 cap(s), Oral, BID, PRN for constipation, # 20 cap(s), Refills(s) 0 Start Date: 10/22/21 Status: Ordered Start: 03-28-2020 take 2 capsules by m outh once daily in the morning Docusate [...] as needed Start Date: 07/05/15 Status: Ordered fenofibrate 145 mg oral tablet (11 sources) Peroxisome Proliferator Receptor alpha Agonist Start: [...] Daily March 28, 2020 1:00am Start: 02-26-2020 End: 06-02-2024 fluticasone (FLONASE) 50 mcg /act nasal inhaler 02/26/2020 06/02/2024 Discontinued (Duplicate (*won't e-cancel)) take 2 spray(s) nasa l route once daily fluticasone (FLONASE) 50 mcg/act nasal inhaler Use 2 Sprays in each nostril daily. Active take 2 spray(s) nasa l route once daily fluticasone (Flonase) 50 MCG/ACT nasal spray USE 2 SPRAYS IN EACH NOSTRIL ONCE DAILY FLONASE Active take 1 spray(s) nasa l route once daily Fluticasone Propionate 50 MCG/ACT 1 spray in each nostril Nasally Once a day Active glycopyrrolate 1 mg oral tablet (17 sources) Start: 10-22-2021 take 1 tablet by [...] daily March 28, 2020 1:00am Start: 02-19-2020 End: 06-02-2024 lactulose 10 g/15 mL oral so lution 02/19/2020 06/02/2024 Discontinued (Duplicate (*won't e-cancel)) Start: 07-04-2015 lactulose 40 g marlena, Oral, QID, Refills(s) 0, Other (see comment) Start Date: 07/04/15 Status: Ordered Lactulose Enceph alopathy (Enulose) 10 GM/15ML SOLN Take by mouth. 90 mL at 8am, 12pm and 8pm Active take 15 mL by mouth once daily Lactulose 10 GM/15ML 15 ml Orally Once a day Active levETIRAcetam 750 mg oral tablet (20 sources) Start: 03-28-2020 take 2 tablets by mouth twice daily Levetiracetam 750 mg tablet Active 1500 MG PO Twice daily March 28, 2020 1:00am Start: 03-28-2020 take 1500 mg by mout h twice daily Levetiracetam Active 1500 MG PO Twice daily March 28, 2020 1:00am Start: 07-04-2015 End: 06-02-2024 levetiracetam (KEPPRA) 750 M G tablet 02/23/2020 06/02/2024 Discontinued (Duplicate (*won't e-cancel)) take 1 tablet by rebecca th at bedtime levETIRAcetam (Keppra) 500 MG tablet Take 500 mg by mouth at bedtime. Active take 2 tablets by mo uth [...] MCG tablet 11/10/2022 Active Start: 02-23-2020 End: 06-02-2024 levothyroxine (SYNTHROID) 10 0 MCG tablet 02/23/2020 06/02/2024 Discontinued Start: 02-23-2020 End: 06-02-2024 levothyroxine (SYNTHROID) 50 MCG tablet 02/23/2020 06/02/2024 Discontinued Start: 07-04-2015 levothyroxine 150 microgram, Oral, Daily, Refills(s) 0, Thyroid Start Date: 07/04/15 Status: Ordered take 1 tablet by rebecca th every twenty-four hours Levothyroxine Sodium 150 MCG 1 tablet Orally Once a day Active linaclotide 0.145 mg oral capsule (20 sources) Guanylate Cyclase-C Agonist Start: 12-16-2022 Linzess 145 mcg oral capsule Start Date: 12/16/22 Status: Ordered Start: 02-23-2020 End: 06-02-2024 Linzess 145 MCG CAPS capsule 02/23/2020 06/02/2024 Discontinued Start: 07-05-2015 Linzess 145 mi crogram, Oral, Daily, PRN Constipation, Refills(s) 0 Start Date: 07/05/15 Status: Ordered Linzess 145 145m cg 1 PO Every AM Active loratadine 10 mg oral tablet (2 sources) Start: 12-16-2022 loratadine 10 mg Tab Start Date: 12/16/22 Status: Ordered 24 hr loratadine 10 mg / pseudoephedrine sulfate 240 mg extended release oral tablet (9 sources) alpha-Adrenergi c Agonist Start: 03-28-2020 End: 06-28-2023 take 1 tablet by mouth once daily as needed, then take 1 tablet by mouth every twenty-four hours as needed Loratadine-Pseudo ephedrine (Allergy Relief D-24hr) 10-240 mg tablet extended release 24 hr Active 1 TAB PO Daily as needed June 28, 2023 12:00am magnesium oxide 400 mg oral tablet (14 sources) Start: 03-28-2020 take 1 tablet by mouth once daily Magnesium Oxide 400 mg magnesium Tablet Active 400 MG PO Daily March 28, 2020 1:00am take 1 tablet by mouth once toby y Magnesium Oxide (MAG-OX 400 ORAL) Take 1 Tablet by mouth daily. Active melatonin 5 mg oral tablet (7 sources) Start: 03-28-2020 take 1 tablet by mouth once daily at bedtime Melatonin 5 mg Tablet Active 5 MG PO Daily at bedtime March 28, 2020 1:00am metoprolol tartrate 50 mg oral tablet (6 sources) beta-Adrenergic Rachelle Start: 06-28-2023 take 1 [...] Status: Ordered montelukast 10 mg oral tablet (11 sources) Leukotriene Receptor Antagonist Start: 03-28-2020 take [...] Ordered Normal saline (7 sources) Start: 07-05-2015 [place] Saline Nasal Gel Nasal, TID, Refill(s) 0, Dry nasal passages Start Date: 07/05/15 Status: Ordered [place] Saline Nasal Gel Nasally Active Nutritional Supplements (boost) (1 source) Nutritional Supp lements (boost) Take by mouth. 1 can tid Active OXcarbazepine 600 mg oral tablet (20 sources) Anti-epileptic Agent Start: 06-28-2023 Oxcarbazepine 600 mg tablet Active 300 MG PO Twice daily June 28, 2023 1:14pm Start: 06-28-2023 take 300 mg by mouth twice daily Oxcarbazepine Active 300 MG PO Twice daily June 28, 2023 1:14pm Start: 02-23-2020 End: 06-02-2024 oxcarbazepine (TRILEPTAL) 30 0 MG tablet 02/23/2020 06/02/2024 Discontinued (Duplicate (*won't e-cancel)) Start: 02-23-2020 End: 06-02-2024 oxcarbazepine (TRILEPTAL) 60 0 MG tablet 02/23/2020 06/02/2024 Discontinued (Duplicate (*won't e-cancel)) Start: 07-05-2015 take 300 mg by mouth [...] Calcium with Vitamin D (4 sources) Start: 07-05-19 16 Oyster Shell Calcium with Vitamin D Refill(s) 0, 1 tab bid, Prophylaxis Start Date: 07/05/15 Status: Ordered [id number] oral powder for reconstitution (1 source) Start: 12-17-19 23 [id number] oral powder for reconstitution Start Date: 12/16/22 Status: Ordered polyethylene glycol 3350 64219 mg powder for oral solution (5 sources) Osmotic Laxative Start: 07-05-19 16 polyethylene glycol 3350 17 gram packet 17 gram, Oral, Daily, Refills(s) 0, Constipation Start Date: 07/05/15 Status: Ordered polyethylene gly col (MIRALAX) packet Dissolve 17 g in 8 ounces of liquid and drink daily. Active rifAXIMin 550 mg oral tablet (2 sources) Rifamycin Antibacterial Start: 12-16-2022 take 1 tablet by mouth twice daily Xifaxan 550 mg oral tablet 550 mg = 1 tab(s), Oral, BID, # 60 tab(s) Start Date: 12/16/22 Status: Ordered Senna Leaves (4 sources) Start: 10-22-2021 Senna 8.6 mg o ral tablet 17.2 mg, 2 tab(s), Oral, Once a day (at bedtime) for constipation, 100 tab(s), Refill(s) 0 Start Date: 10/22/21 Status: Ordered sennosides, correction 8.6 mg oral tablet (4 sources) Start: 03-28-2020 take 2 tablets by mouth twice daily as needed Sennosides (Senna) 8.6 mg Tablet Active 17.2 MG PO Twice daily as needed for No BM in 4 Days March 28, 2020 1:00am take 1 tablet by rebecca th twice daily as needed for constipation senna (SENOKOT) 8.6 MG tablet Take 1 Tablet by mouth 2 times daily as needed for Constipation. Active sertraline 25 mg oral tablet (6 sources) Serotonin Reuptake Inhibitor Start: 06-28-2023 take 1 tablet by mouth once daily Sertraline 25 mg tablet Active 25 MG PO Daily June 28, 2023 12:00am take 1 tablet by rebecca th every twenty-four hours Sertraline HCl 25 MG 1 tablet Orally Onc e a day Active Sodium Chloride-Aloe Vera (A yr Saline) gel (3 sources) Start: 06-28-2023 Sodium Chlorid e-Aloe Vera ([place] Saline) gel Active 1 APPLIC TOPICAL Daily at bedtime as needed June 28, 2023 12:00am Start: 06-28-2023 Sodium Chlorid e-Aloe Vera ([place] Saline) gel Active 1 APPLIC TOPICAL Daily at bedtime June 28, 2023 12:00am tamsulosin hydrochloride 0.4 mg oral capsule (11 sources) alpha-Adrenergic Rachelle Start: 07-04-2015 take 1 [...] 28, 2020 1:00am July 06, 2023 10:22am alendronic acid 70 mg oral tablet (20 sources) Bisphosphonate Start: 07-04-2015 alendronate Ta b 70 mg, Oral, Wednesday, Refills(s) 0, Other (see comment) Start Date: 07/04/15 Status: Ordered Start: 07-04-2015 End: 06-02-2024 alendronate (FOSAMAX) 70 MG tablet 02/23/2020 06/02/2024 Discontinued (Discontinued by another Health Care Provider) take 1 tablet by rebecca th once daily alendronate (Fosamax) 70 MG tablet 1 tablet 30 minutes before the first food, beverage or medicine of the day with plain water Orally Active clindamycin 300 mg oral capsule (7 sources) Lincosamide Antibacterial Start: 02-29-2020 End: 06-02-2024 take 1 capsule by mouth three times daily clindamycin (CLEOCIN) 300 MG capsule TAKE 1 CAPSULE BY MOUTH 3 TIMES DAILY FOR 7 DAYS. 21 Capsule 02/29/2020 06/02/2024 Discontinued cloBAZam 10 mg oral tablet (20 sources) Benzodiazepine Start: 07-04-2015 End: 06-02-2024 cloBAZam (ONFI) 10 MG tablet 02/26/2020 06/02/2024 Discontinued (Duplicate (*won't e-cancel)) felbamate 400 mg oral tablet (20 sources) Anti-epileptic Agent Start: 02-23-2020 End: 06-02-2024 felbamate (FELBATOL) 400 MG tablet 02/23/2020 06/02/2024 Discontinued (Duplicate (*won't e-cancel)) felbamate (Felba ela) 400 MG tablet 1 (one) time each day at the same time Active furosemide 20 mg oral tablet (20 sources) Loop Diuretic Start: 02-23-2020 End: 06-02-2024 furosemide (LASIX) 20 MG tablet 02/23/2020 06/02/2024 Discontinued (Duplicate (*won't e-cancel)) levoFLOXacin 750 mg oral tablet (3 sources) Quinolone Antimicrobial Start: 03-28-2020 End: 06-28-2023 take 1 tablet by mouth once daily Levofloxacin 750 mg tablet Discontinued 750 MG PO Daily March 28, 2020 1:00am June 28, 2023 1:09pm omeprazole 40 mg delayed release oral capsule (20 sources) Proton Pump Inhibitor Start: 02-23-2020 End: 06-02-2024 omeprazole (PRILOSEC) 40 MG capsule 02/23/2020 06/02/2024 Discontinued (Duplicate (*won't e-cancel)) Polyethylene Glycol 3350 (Clearlax) 17 gram/dose Powder [...] June 28, 2023 1:22pm Start: 02-23-2020 End: 06-02-2024 divalproex (DEPAKOTE SPRINKL E) 125 MG CSDR capsule 02/23/2020 06/02/2024 Discontinued (Discontinued by another Health Care Provider) Start: 02-23-2020 take 1 mg by mouth t hree times daily divalproex sodium 125 mg Cap-EC mg cap(s), Oral, TID, Refills(s) 0 Start Date: 10/22/21 Status: Ordered Start: 02-23-2020 End: 06-02-2024 divalproex (DEPAKOTE) 250 MG enteric coated tablet 02/23/2020 06/02/2024 Discontinued (Discontinued by another Health Care Provider) Start: 02-23-2020 End: 06-28-2023 take 1 tablet [...] [Conduct disorder, unspecified] 05-31-2024 Chronic Cardiac dysrhythmias (2 sources) Tachycardia, unspecified; Translations: [Tachycardia] Onset: 5 06-05-2024 Episodic Chronic obstructive pulmonary disease and bronchiectasis (16 sources) Chronic obstructive lung disease; Translations: [Chronic obstructive pulmonary disease, unspecified] Onset: 2 Resolved: 2 Chronic Developmental disorders (20 sources) Severe intellectual disability; Translations: [Mental handicap] Onset: 0 06-30-2013 Chronic Disorders of lipid metabolism (1 source) Hyperlipidemia, unspecified; Translations: [HYPERLIPIDEMIA UNSPECIFIED] Onset: 3 Chronic E Codes: Adverse effects of medical drugs (1 source) Adverse effect of other antiepileptic and sedative-hypnotic drugs, initial encounter; Translations: [ADVRS EFF OTH ANTIEPI SED RX INIT] Onset: 3 Episodic Epilepsy; convulsions (20 sources) Epilepsy, unspecified, not intractable, without status epilepticus; Translations: [Seizure disorder] Onset: 3 Chronic Epilepsy; convulsions (16 sources) Seizure disorder; Translations: [Unspecified convulsions] Onset: [...] 06-30-2013 Chronic Other aftercare (5 sources) Other terminal clerk (current) drug therapy; Translations: [OTH SHOW HORSE DRIVER CURRENT DRUG THERAPY] Onset: 3 Episodic Other and ill-defined heart disease (1 source) Cardiomegaly; Translations: [Cardiomegaly] Onset: 5 Chronic Other and ill-defined heart disease (1 source) Cardiomegaly; Translations: [Cardiomegaly] 06-05-2024 Chronic Other congenital anomalies (1 source) Tristen [...] conditions (not mental disorders or infectious disease) (4 sources) Abnormal finding of blood chemistry, unspecified; Translations: [Abnormal electrocardiogram [ECG] [EKG]] Onset: 3 06-05-2024 Episodic Other upper respiratory disease (3 sources) [...] unspecified; Translations: [Edema, unspecified] Onset: 5 Episodic Residual codes; unclassified (1 source) Edema; Translations: [Edema, unspecified] 06-02-2024 Episodic Respiratory failure; insufficiency; arrest (adult) (1 source) Acute respiratory failure with hypoxia; Translations: [ACUTE RESPIRATORY FAIL W/HYPOXIA] Onset: 3 Episodic Septicemia (except in labor) (5 sources) Sepsis, unspecified organism; Translations: [Other specified sepsis] Onset: 3 Episodic Thyroid disorders (11 sources) Hypothyroidism; Translations: [Hypothyroidism, unspecified] Onset: 3 [...] COMPLICATIONS PROC NEC INITIAL] Onset: 09-29-2021 Episodic Disorders of teeth and jaw (7 sources) Dental caries; Translations: [Dental caries, unspecified] Onset: 03-28-2024 Resolved: 06-12-2024 03-28-2024 Episodic Epilepsy; convulsions (4 sources) Epilepsy; convulsions [...] COUGH, UNSPECIFIED; Translations: [COUGH, UNSPECIFIED] Onset: 08-04-2022 Unclassified (1 source) Preprocedural examination done 06-02-2024 Results Test Name Value Interpretation Reference Range Facility Anesthesia Postprocedure Lucia wolff 06-12-2024 [employer] Waste Technician Authentication Interface Message Text Anesthesia Postoperative Assessment: [...] EVENTS: No notable events documented. Normal [facility] Anesthesia Preprocedure Eval uationon 06-12-2024 Hazardous Materials Waste Technician Authentication Interface Message Text ASA: 3 No [...] were discussed with the patient and/or legal sales representative jewelry. The risks, benefits and alternatives were reviewed. Questions regarding anesthesia were answered. Patient and/or legal sales representative jewelry knows such anesthetics and procedures may be performed by Resident physicians, Certified Anesthesiologist Assistants, or Certified Nurse Anesthetists under the supervision of a physician. The patient /or the patient's legal sales representative jewelry agree with the plan for anesthesia. Comment: Consent obtained from patient's mother over the phone. Also explained what to expect from anesthesia to patient's caregiver from snf [employer] Social History Socioeconomic History Marital status: Single Social History Narrative Resident at [facility]. Mom is guardian CBC 06/02/2024 [...] Vitamin D3 125 mcg, DAILY Normal [facility] Anesthesia Transfer Of [facility] n 06-12-2024 Haz[employer] Materials Waste Technician Authentication Interface Message Text Patient taken to [...] 1 extraction; Surgeon: Ap Scott DDS; Location: [facility] [place]; Service: Dental Allergies: Promethazine, Amoxicillin-pot clavulanate, Pertussis [...] intact 06/12/24735 Infusion Status Port #1 Infusing 06/12/24735 Airway Insertion Details [REMOVED] Advanced Airway: ETT, [...] Removal Reason: Not Removed at Discharge: Removed 06/12/24 0825 Location (cm) 25 06/12/24745 Measured from: Naris 06/12/24745 Secured via: Taped 06/12/24745 Site Assessment WNL 06/12/24 07 All non-working IVs have been removed: N/A [...] of the report was received. ILIANA Clements Normal [facility] Blood Attestationon 06-12-19 [employer] Materials Waste Technician Authentication Interface Message Text Blood Attestation: REFUSAL OF BLOOD OR BLOOD COMPONENTS: The patient and/or legal sales representative jewelry has been explained the need for transfusion of blood and/or blood components. The risks, benefits and alternatives have been explained. Questions concerning the transfusion of blood or blood components have been asked and answered. The patient and/or legal sales representative jewelry have REFUSED TO CONSENT transfusion of blood or blood products. PER PATIENT'S MOTHER Normal [facility] Brief Operative Noteon 06-12 [employer] Waste Technician Authentication Interface Message Text Brief Operative Note PHE OR 3 Parish Lopez 44 year old male Surgical Contact Serial Number: [id number] Preoperative Diagnosis: Pre-op Diagnosis * Caries [K02.9] Mental disability COPD Hyperthyroidism Seizures HLD GERD Postoperative Diagnosis: Mental disability COPD Hyperthyroidism Seizures HLD GERD Procedures: Full mouth x-rays [72308] Comprehensive Exam [83298] Dental prophylaxis [81457] Surgeon(s): Surgeon(s): Ap Scott DDS Staff: Biology Professor Nurse: Felisha Moore Anesthesia: General Anesthesiologist: Blake [...] Thompson DDS 06/12/2024 7:03 AM Normal [facility] OP Noteon 06-12-2024 [employer] Waste Technician Authentication Interface Message Text Operative Note PHE OR 3 Parish Lopez 44 year old male Surgical Contact Serial Number: [id number] Preoperative Diagnosis: Pre-op Diagnosis * Caries [K02.9] Mental disability COPD Hyperthyroidism Seizures HLD GERD Postoperative Diagnosis: Mental Disability COPD Hyperthyroidism Seizures HLD GERD Procedures: Full mouth x-rays [82952] Comprehensive Exam [57652] Dental prophylaxis [63573] Surgeon: Ap Scott DDS Report Programmer Surgeon: Hansel Burgess DDS; Beatris Thompson DMD [...] Thompson DDS 06/12/2024 7:07 AM Normal [facility] Progress Noteson 06-12-2024 [employer] Materials Waste Technician Authentication Interface Message Text ----- Wednesday, June 12, 2024 at 8:41:56 AM ----- ----- Provider: [id number] - Ap Adams DDS -- Clinic: [facility] ----- [facility], pt is ready for tx. [place], only scaling was done. __ Operative Note PHE OR 3 Parish Lopez 44 year old male Surgical Contact Serial Number: [id number] Preoperative Diagnosis: Pre-op Diagnosis * Caries [K02.9] Mental disability COPD Hyperthyroidism Seizures HLD GERD Postoperative Diagnosis: Mental Disability COPD Hyperthyroidism Seizures HLD GERD Procedures: Full mouth x-rays [00350] Comprehensive Exam [87148] Dental prophylaxis [91201] Surgeon: Ap Scott DDS Report Programmer Surgeon: Hansel Burgess DDS; Beatris Thompson DMD [...] 2024 at 8:46:14 AM ----- ----- Provider: [id number] Ap Adams DDS -- Clinic: [facility] ----- Normal [facility] EKG 12 LEAD - PERFORMon 05-20 Diagnosis Sinus tachycardia Possible Left atrial enlargement Nonspecific T wave abnormality Abnormal ECG Confirmed by JOSSELIN NIETO ([id number]) on 06/05/2024 9:00:17 PM [facility] P wave At[facility] by EKG 122 BPM [facility] Our [facility] P wave axis 21 degrees [facility] P-R Interval 156 ms [facility] Q-T interval 302 ms [facility] Q-T interval corrected 430 ms [facility] QRS axis 0 degrees [facility] QRS duration 78 ms [facility] T wave axis -4 degrees [facility] Telephone Encounteron 2024 [employer] Waste Technician Authentication Interface Message Text Informed Consent for dental surgery AND Anesthesia consent obtained and scanned into [employer]. Scheduled for surgery 06/12/2024. 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 Interface Message Text Addended by: BOYD HARRY on: 06/02/2024 05:54 PM Modules accepted: Orders Normal [facility] BASIC METABOLIC PANELon 05-20 Anion gap [Moles/Vol] 18 mmol/L Normal 10-20 [facility] Comment on above: Performed By: #### C H8 ####[facility] [id number] [place], [address] Calcium [Mass/Vol] 10.5 mg/dL High 8.6-10.3 [facility] Comment on above: Performed By: #### C H8 ####[facility] [id number] [place], [place], Chloride [Moles/Vol] 109 mmol/L High 98-107 The [facility] Comment on above: Performed By: #### C H8 ####[facility] [id number] [place], [place], CO2 [Moles/Vol] 22 mmol/L Normal 21-31 The [facility] Comment on above: Performed By: #### C H8 ####S PATHOLOGY [id number] [place], [place], Creatinine [Mass/Vol] 0.61 mg/dL Low 0.70-1.30 [facility] Comment on above: Performed By: #### C H8 ####S PATHOLOGY [id number] [place], [place], ESTIMATED GFR (CKD-EPI) 121 mL/min/1.73sqm Normal >=60 The [facility] Comment on above: Result Comment: 2020 [...] Inclusion of Race in Diagnosing Kidney Disease. [place] Journal of Kidney Diseases 2021;79(2):268-88.e1. 2. N Engl J Med 1 Vol. 385 Issue 19 Pages 0852-3867 Performed By: #### C H8 ####[facility] [id number] [place], [place], Glucose [Mass/Vol] 126 mg/dL High 74-109 The [facility] Comment on above: Performed By: #### C H8 ####[facility] [id number] [place], [place], Potassium [Moles/Vol] 4.8 mmol/L Normal 3.5-5.0 The [facility] Comment on above: Performed By: #### C H8 ####S PATHOLOGY [id number] [place], [place], Sodium [Moles/Vol] 144 mmol/L Normal 136-145 The [facility] Comment on above: Performed By: #### C H8 ####[facility] [id number] [place], [place], Urea nitrogen [Mass/Vol] 14 mg/dL Normal 7-25 The [facility] Comment on above: Performed By: #### C H8 ####S PATHOLOGY [id number] [place], [place], Basic metabolic 2000 panelon 06-02-2024 Anion gap [Moles/Vol] 18 mmol/L 10 - 20 [facility] Calcium [Mass/Vol] 10.5 mg/dL High 8.6 - 10. 3 mg/dL [facility] Chloride [Moles/Vol] 109 mmol/L High 98 - 10 7 mmol/L [facility] CO2 [Moles/Vol] 22 mmol/L 21 - 31 mmol/L [facility] Creatinine [Mass/Vol] 0.61 mg/dL Low 0.70 - 1.30 mg/dL [facility] GFR/1.73 sq M.predicted CKD-EPI (S/P/Bld) [Vol rate/Area] 121 - PINF [facility] Comment on above: 2020 CKD EPI Equatio n using Creatinine without Race Comment: Estimated glomerular filtration rate (eGFR) is calculated without a race coefficient. Values should be interpreted in the context of the patient's full clinical presentation. Reference: 1. Ata C, Bia M, Beata FARIAS, et al.. A Unifying Approach for GFR Estimation: Recommendations of the NKF-ASN Task Force on Reassessing the Inclusion of Race in Diagnosing Kidney Disease. [place] Journal of Kidney Diseases 2021;79(2):268-88.e1. 2. N Engl J Med 1 Vol. 385 Issue 19 Pages 2557-4224 Glucose [Mass/Vol] 126 mg/dL High 74 - 109 mg/dL [facility] Interpretation and review of laboratory results Abnormal [facility] Potassium [Moles/Vol] 4.8 mmol/L 3.5 - 5.0 mmol/L [facility] Sodium [Moles/Vol] 144 mmol/L 136 - 145 mmol/L [facility] Urea nitrogen [Mass/Vol] 14 mg/dL 7 - 25 mg/dL [facility] CBC panel Auto (Bld)on 06-02 Erythrocyte distribution width (RBC) [Ratio] 14.5 % 11.5 - 14.5 % [facility] Hematocrit (Bld) [Volume fraction] 42.5 % 41.0 - 53.0 % [facility] Hemoglobin (Bld) [Mass/Vol] 13.8 g/dL Low 13.9 - 16.3 g/dL [facility]ation [facility] review of [facility] results Abnormal [facility] MCH (RBC) [Entitic mass] 30.7 pg 26.0 - 34.0 pg [facility] MCHC (RBC) [Mass/Vol] 32.4 g/dL 32.0 - 35.9 g/dL [facility] MCV (RBC) [Entitic vol] 95 fL 80 - 100 fL [facility] Platelet mean volume (Bld) [Entitic vol] 9.3 fL 7.5 - 11.2 fL [facility] Platelets (Bld) [#/Vol] 419 10*3/uL High 150 - 400 K/uL [facility] RBC (Bld) [#/Vol] 4.49 10*6/uL Low [facility] WBC (Bld) [#/Vol] 7 10*3/uL 4.5 - 11.5 K/uL [facility] COMPLETE BLOOD COUNTon 06-02 Erythrocyte distribution width (RBC) [Ratio] 14.5 % Normal 11.5-14.5 The [facility] Comment on above: Performed By: #### C BC #### [facility] [address] [place] [address], Hematocrit (Bld) [Volume fraction] 42.5 % Normal 41.0-53.0 The [facility] Comment on above: Performed By: #### C BC #### [facility] [address], [place], Hemoglobin (Bld) [Mass/Vol] 13.8 g/dL Low 13.9-16.3 The [facility] Comment on above: Performed By: #### C BC #### [facility] [address], [place], MCH (RBC) [Entitic mass] 30.7 pg Normal 26.0-34.0 The [facility] Comment on above: Performed By: #### C BC #### [facility] [address], [place], MCHC (RBC) [Mass/Vol] 32.4 g/dL Normal 32.0-35.9 The [facility] Comment on above: Performed By: #### C BC #### S PATHOLOGY LABORATORY [address], [place], MCV (RBC) [Entitic vol] 95 fL Normal 80-100 The [facility] Comment on above: Performed By: #### C BC #### S PATHOLOGY LABORATORY [address], [place], Platelet mean volume (Bld) [Entitic vol] 9.3 fL Normal 7.5-11.2 The [facility] Comment on above: Performed By: #### C BC #### S PATHOLOGY LABORATORY [address], [place], Platelets (Bld) [#/Vol] 419 10*3/uL High 150-400 The [facility] Comment on above: Performed By: #### C BC #### S PATHOLOGY LABORATORY [address], [place], RBC (Bld) [#/Vol] 4.49 10*6/uL Low 4.50-5.90 The [facility] Comment on above: Performed By: #### C BC #### S PATHOLOGY LABORATORY [address], [place], WBC (Bld) [#/Vol] 7.0 10*3/uL Normal 4.5-11.5 The [facility] Comment on above: Performed By: #### C BC #### [facility] [address], [place], Patient Instructionson 06-02 [employer] Waste Technician Authentication Interface Message Text RECOMMENDATIONS: Patient was [...] before surgery Boyd Harry MD Normal [facility] Progress Noteson 06-02-2024 [employer] Waste Technician Authentication Interface Message Text Blood pressure 154/73, [...] 1 extraction; Surgeon: Ap Scott DDS; Location: [facility]; Service: Dental Pertinent Social History Reviewed Social [...] fever, chills, night sweats, and weight loss 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 Normal [facility] THYROXINE (T4), FREEon 06-02 Free T4 [Mass/Vol] 0.7 ng/dL 0.61 - 1. 12 ng/dL [facility] Interpretation and review of laboratory results Normal [facility] T4 F 0.70 ng/dL Normal 0.61-1.12 [facility] Comment on above: Performed By: #### T SH HS, T4 F #### [facility] [address] [place] [address], TSHon 06-02-2024 Interpretation and review of laboratory results Abnormal [facility] TSH Qn 0.229 m[IU]/L Low [facility] TSH 0.229 uIU/mL Low 0.450-5.330 [facility] Comment on above: Performed By: #### T SH HS, T4 F #### [facility] [address], [place], XR Chest PA and Lateralon Greta Heck MD - 06/02/2024 EXAMINATION: XR CHEST PA+LAT 2 VIEWS 06/02/2024 03:22 PM CLINICAL HISTORY: pre op evaluation for dental restorations ASSOCIATED DIAGNOSIS: Pre-op evaluation ORDERING PROVIDER: BOYD KAMRYN TECHNOLOGISTS NOTE: COMPARISON: None FINDINGS: Cardiomediastinal silhouette: [...] in bronchovascular crowding. There is also mild perihilar/peribronchi al thickening. This is probably related to atelectasis/bronchiti s. MACRO: None I have personally reviewed the images and agree with the resident's interpretation. [facility] Study observation (narrative) [facility] XR Chest PA and LateralOrder ed By: Greta Heck on 06-02-2024 [facility] Work Phone: No Panel Informationon 05-31 [facility] Progress Noteson 04-25-2024 [employer] Waste Technician Authentication Interface Message Text Parent/guardian/patie nt was contacted for PSE AND OR scheduled -- confirmed information with mom, also informed mom importance of receiving PSE call -- if not received surgery will be canceled. 06/12/2024 ----- Thursday, April 25, 2024 at 2:35:00 PM ----- ----- Provider: PEARL Ace, Dental-Artificial Flowers Supervisor -- Clinic: [place] ----- Normal [facility] No Panel Informationon 03-13 [facility] Summaryon 0 12-16-2022 Ambulatory Visit [...] (oxcarbazepine 600 mg Tab) polyethylene glycol 3350 ([id number] oral powder for reconstitution) polyethylene glycol 3350 (polyethylene glycol 3350 17 gram packet) rifaximin (Xifaxan 550 mg oral tablet) senna (Senna 8.6 mg oral tablet) sodium chloride nasal ([place] Saline Nasal Gel) tamsulosin Discharge Vitals Temperature (Temporal Artery) 36.7 ?C Heart Rate (Peripheral) 84 Blood Pressure 128/78 Height 158 cm Height 62 in Weight 107.9 kg Weight 237.38 lb BMI 43.22 What to do next You Need to Schedule the Following Appointments Follow Up with Abner BYRNE, Arline Little, JUNIOR, URO When: Comments: PRN Where: Medications What [...] (more content not included)... Normal [facility] Patient Educationon 12-17-19 Patient Education Obstetrics and [...] provider. Document Revised: 08/14/2021 Document Reviewed: 08/14/2021 [employer] Patient Education ? 2022 [employer] Normal [facility] Physician Orderon 12-16-2022 Physician Order [id number] .[id number]:127 Normal [facility] RAD - Ultrasound Reporton RAD - Ultrasound Report [id number] .[id number]:127 Normal [facility] Urology Office/Clinic Noteon 12-16-2022 Urology Office/Clinic Note [...] of retractile testes. Pt currently resides in [facility]. CBC/CMP 08/01/22 1. Retractile testis [...] the patient. Follow-up With When Contact Information Arline Levine MD, URL, URO Additional Instructions: PRN [...] Eye-Both, QID atorvastatin, 10 mg, Oral, Daily [place] Saline Nasal Gel, Nasal, TID azelastine nasal 137 mcg/inh spray, 2 spray(s), Nasal, As (more content not included)... Normal [facility] Comment on above: Result Comment: Elec tronically [...] GUANAKITO MEADE Date: 2022-08-04 18:50 Normal The [facility] AMMONIAon 08-02-2022 Ammonia (P) [Moles/Vol] 87 umol/L Critically high - The [facility] Comment on above: Performed By: #### B MP #### [facility] [address] [place] [address] Dr. Deepak Greenfield AMMONIAon 08-01-2022 Ammonia (P) [Moles/Vol] 42 umol/L Critically high - The [facility] Comment on above: Performed By: #### M G, CMP #### [facility] [address] [place] [address] Dr. Deepak Greenfield CBC W MANUAL DIFFon 08-02-19 23 ATYPICAL LYMPH # 0.41 103/ul Normal The [facility] Comment on above: Performed By: #### M G, CMP #### [facility] [address] [place] [address] Dr. Deepak Greenfield ATYPICAL LYMPH % 7 % Normal [facility] Comment on above: Performed By: #### M G, CMP #### [facility] [address] [place] [address] Dr. Deepak Greenfield BAND # 0.0 103/ul Normal 0.0-0.3 [facility] Comment on above: Performed By: #### M G, CMP #### [facility] [address] [place] [address] Dr. Deepak Greenfield BAND % 0 % Normal 0-5 [facility] Comment on above: Performed By: #### M G, CMP #### [facility] [address] [place] [address] Dr. Deepak Greenfield BASOM # 0.00 103/ul Normal 0.00-0.10 [facility] Comment on above: Performed By: #### M G, CMP #### [facility] [address] [place] [address] Dr. Deepak Greenfield BASOM % 0.0 % Critically low 0.2-2.0 [facility] Comment on above: Performed By: #### M G, CMP #### [facility] [address] [place] [address] Dr. Deepak Greenfield BLAST # Normal [facility] Comment on above: Performed By: #### M G, CMP #### [facility] [address] [place] [address] Dr. Deepak Greenfield BLAST % Normal [facility] Comment on above: Performed By: #### M G, CMP #### [facility] [address] [place] [address] Dr. Deepak Greenfield CORRECTED WBC Normal 4.0-11.0 [facility] Comment on above: Performed By: #### M G, CMP #### [facility] [address] [place] [address] Dr. Deepak Greenfield EOS # 0.06 103/ul Normal 0.00-0.70 [facility] Comment on above: Performed By: #### M G, CMP #### [facility] [address] [place] [address] Dr. Deepak Greenfield EOS% 1.0 % Normal 0.9-7.0 [facility] Comment on above: Performed By: #### M G, CMP #### [facility] [address] [place] [address] Dr. Deepak Greenfield HCT 37.6 % Critically low 42.0-54.0 The [facility] Comment on above: Performed By: #### M G, CMP #### [facility] [address] [place] [address] Dr. Deepak Greenfield HGB 12.3 g/dl Critically low 14.0-18.0 The [facility] Comment on above: Performed By: #### M G, CMP #### [facility] [address] [place] [address] Dr. Deepak Greenfield LYMPHM # 1.91 103/ul Normal 1.20-3.80 [facility] Comment on above: Performed By: #### M G, CMP #### [facility] [address] [address] [address] Deepak Greenfield LYMPHM% 33.0 % Normal 20.5-60.0 [facility] Comment on above: Performed By: #### M G, CMP #### [facility] [address] [place] [address] Dr. Deepak Greenfield MCH 31.7 pg Normal 25.9-34.0 [facility] Comment on above: Performed By: #### M G, CMP #### [facility] [address] [place] [address] Dr. Deepak Greenfield MCHC 32.7 g/dl Normal 29.9-35.2 [facility] Comment on above: Performed By: #### M G, CMP #### [facility] [address] [place] [address] Dr. Deepak Greenfield MCV 96.9 fL Critically high 80.0-94.0 The [facility] Comment on above: Performed By: #### M G, CMP #### [facility] [address] [place] [address] Dr. Deepak Greenfield METAMYELOCYTE # Normal The [facility] Comment on above: Performed By: #### M G, CMP #### [facility] [address] [place] [address] Dr. Deepak Greenfield METAMYELOCYTE % Normal The [facility] Comment on above: Performed By: #### M G, CMP #### [facility] [address] [place] [address] Dr. Deepak Greenfield MONOM# 0.29 103/ul Critically low 0.30-0.80 The [facility] Comment on above: Performed By: #### M G, CMP #### [facility] [address] [place] [address] Dr. Deepak Greenfield MONOM% 5.0 % Normal 1.7-12.0 [facility] Comment on above: Performed By: #### M G, CMP #### [facility] [address] [place] [address] Dr. Deepak Greenfield MPV 11.0 fL Normal 9.5-13.5 [facility] Comment on above: Performed By: #### M G, CMP #### [facility] [address] [address] [address] Deepak Greenfield MYELOCYTE # Normal [facility] Comment on above: Performed By: #### M G, CMP #### [facility] [address] [address] [address] Deepak Greenfield MYELOCYTE % Normal [facility] Comment on above: Performed By: #### M G, CMP #### [facility] [address] [place] [address] Dr. Deepak Greenfield NRBC Normal [facility] Comment on above: Performed By: #### M G, CMP #### [facility] [address] [address] [address] Deepak Greenfield PLT 208 103/ul Normal 150-450 [facility] Comment on above: Performed By: #### M G, CMP #### [facility] [address] [place] [address] Dr. Deepak Greenfield RBC 3.88 106/ul Critically low 4.70-6.10 [facility] Comment on above: Performed By: #### M G, CMP #### [facility] [address] [place] [address] Dr. Deepak Greenfield RDW 12.9 % Normal 11.0-15.0 [facility] Comment on above: Performed By: #### M G, CMP #### [facility] [address] [place] [address] Dr. Deepak Greenfield SEG # 3.13 103/ul Normal 1.40-6.50 [facility] Comment on above: Performed By: #### M G, CMP #### [facility] [address] [place] [address] Dr. Deepak Greenfield SEG % 54.0 % Normal 43.0-75.0 [facility] Comment on above: Performed By: #### M G, CMP #### [facility] [address] [place] [address] Dr. Deepak Greenfield STOMATOCYTES 3+ Normal [facility] Comment on above: Performed By: #### M G, CMP #### [facility] [address] [address] [address] Deepak Greenfield WBC 5.8 103/ul Normal 4.0-11.0 [facility] Comment on above: Performed By: #### M G, CMP #### [facility] [address] [address] [address] Deepak Greenfield PROF CHEM 8 (BAS METB)on Anion gap [Moles/Vol] 16.1 mmol/L Normal [facility] Comment on above: Performed By: #### B MP #### [facility] [address] [address] [address] Deepak Greenfield Calcium [Mass/Vol] 9.3 mg/dL Normal 8.5-10.[address] [facility] Comment on above: Performed By: #### B MP #### [facility] [address] [place] [address] Dr. Deepak Greenfield Chloride [Moles/Vol] 105 mmol/L Normal 98-107 [facility] Comment on above: Performed By: #### B MP #### [facility] [address] [address] [address] Deepak Greenfield CO2 [Moles/Vol] 27.6 mmol/L Normal 21.0-32.0 [facility] Comment on above: Performed By: #### B MP #### [facility] [address] [address] [address] Deepak Greenfield Creatinine [Mass/Vol] 0.96 mg/dL Normal 0.70-1.30 [facility] Comment on above: Performed By: #### B MP #### [facility] [address] [place] [address] Dr. Deepak Greenfield EGFR-AF NAMIBIAN >60 Normal >=60 [facility] Comment on above: Performed By: #### B MP #### [facility] [address] [address] [address] Deepak Greenfield EGFR-NON AF NAMIBIAN >60 Normal >=60 [facility] Comment on above: Performed By: #### B MP #### [facility] [address] [address] [address] Deepak Greenfield Glucose [Mass/Vol] 160 mg/dL Critically high 74-106 T [facility] Comment on above: Performed By: #### B MP #### [facility] [address] [address] [address] Deepak Greenfield Potassium [Moles/Vol] 3.7 mmol/L Normal 3.5-5.1 [facility] Comment on above: Performed By: #### B MP #### [facility] [address] [address] [address] Deepak Greenfield Sodium [Moles/Vol] 145 mmol/L Normal 136-[address] [facility] Comment on above: Performed By: #### B MP #### [facility] [address] [address] [address] Deepak Greenfield Urea nitrogen [Mass/Vol] 5.0 mg/dL Critically low 7.0-18.0 [facility] Comment on above: Performed By: #### B MP #### [facility] [address] [address] [address] Deepak Greenfield Urea nitrogen/Creatinine [Mass ratio] 5.2 mg/mg Normal [facility] Comment on above: Performed By: #### B MP #### [facility] [address] [address] [address] Deepak Greenfield AMMONIAon 07-31-2022 Ammonia (P) [Moles/Vol] 94 umol/L Critically high 11-32 [facility] Comment on above: Performed By: #### M G, CMP #### [facility] [address] [address] [address] Deepak Greenfield CBC AUTO DIFFon 07-31-2022 BASO # 0.0 103/ul Normal 0.0-0.1 [facility] Comment on above: Performed By: #### B MP #### [facility] [address] [place] [address] Dr. Deepak Greenfield Basophils/100 WBC (Bld) 0.1 % Critically low 0.2-2.0 [facility] Comment on above: Performed By: #### B MP #### [facility] [address] [address] [address] Deepak Greenfield EO # 0.0 103/ul Normal 0.0-0.7 [facility] Comment on above: Performed By: #### B MP #### [facility] [address] [place] [address] Dr. Deepak Greenfield Eosinophils/100 WBC (Bld) 0.0 % Critically low 0.9-7.0 [facility] Comment on above: Performed By: #### B MP #### [facility] [address] [place] [address] Dr. Deepak Greenfield Erythrocyte distribution width (RBC) [Ratio] 13.1 % Normal 11.0-15.0 [facility] Comment on above: Performed By: #### B MP #### [facility] [address] [place] [address] Dr. Deepak Greenfield Hematocrit (Bld) [Volume fraction] 32.4 % Critically low 42.0-54.0 [facility] Comment on above: Performed By: #### B MP #### [facility] [address] [place] [address] Dr. Deepak Greenfield Hemoglobin (Bld) [Mass/Vol] 10.9 g/dL Critically low 14.0-18.0 [facility] Comment on above: Performed By: #### B MP #### [facility] [address] [place] [address] Dr. Deepak Greenfield IG # 0.02 10e3/ul Normal 0.00-0.03 [facility] Comment on above: Performed By: #### B MP #### [facility] [address] [place] [address] Dr. Deepak Greenfield IG % 0.3 % Normal 0.0-0.5 [facility] Comment on above: Performed By: #### B MP #### [facility] [address] [place] [address] Dr. Deepak Greenfield LYMPH # 2.7 103/ul Normal 1.2-3.8 [facility] Comment on above: Performed By: #### B MP #### [facility] [address] [place] [address] Dr. Deepak Greenfield Lymphocytes/100 WBC (Bld) 38.9 % Normal 20.5-60.0 [facility] Comment on above: Performed By: #### B MP #### [facility] [address] [place] [address] Dr. Deepak Greenfield MANUAL DIFF REQ NO Normal [facility] [facility] Comment on above: Performed By: #### B MP #### [facility] [address] [place] [address] Dr. Deepak Greenfield MCH (RBC) [Entitic mass] 32.3 pg Normal 25.9-34.0 [facility] Comment on above: Performed By: #### B MP #### [facility] [address] [place] [address] Dr. Deepak Greenfield MCHC (RBC) [Mass/Vol] 33.6 g/dL Normal 29.9-35.2 [facility] Comment on above: Performed By: #### B MP #### [facility] [address] [place] [address] Dr. Deepak Greenfield MCV (RBC) [Entitic vol] 96.1 fL Critically high 80.0-94.0 [facility] Comment on above: Performed By: #### B MP #### [facility] [address] [place] [address] Dr. Deepak Greenfield MONO # 0.3 103/ul Normal 0.3-0.8 [facility] Comment on above: Performed By: #### B MP #### [facility] [address] [place] [address] Dr. Deepak Greenfield Monocytes/100 WBC (Bld) 4.9 % Normal 1.7-12.0 [facility] Comment on above: Performed By: #### B MP #### [facility] [address] [place] [address] Dr. Deepak Greenfield NEUT # 3.9 103/ul Normal 1.4-6.5 [facility] Comment on above: Performed By: #### B MP #### [facility] [address] [address] [address] Deepak Greenfield Neutrophils/100 WBC (Bld) 55.8 % Normal 43.0-75.0 [facility] Comment on above: Performed By: #### B MP #### [facility] [address] [address] [address] Deepak Greenfield Platelet mean volume (Bld) [Entitic vol] 9.7 fL Normal 9.5-13.5 [facility] Comment on above: Performed By: #### B MP #### [facility] [address] [address] [address] Deepak Greenfield PLT 296 103/ul Normal 150-450 [facility] Comment on above: Performed By: #### B MP #### [facility] [address] [place] [address] Dr. Deepak Greenfield RBC 3.37 106/ul Critically low 4.70-6.10 [facility] Comment on above: Performed By: #### B MP #### [facility] [address] [address] [address] Deepak Greenfield WBC 7.0 103/ul Normal 4.0-11.0 [facility] Comment on above: Performed By: #### B MP #### [facility] [address] [place] [address] Dr. Deepak Greenfield PROF CHEM 8 (BAS METB)on Anion gap [Moles/Vol] 14.9 mmol/L Normal [facility] Comment on above: Performed By: #### C BC #### [facility] [address] [place] [address] Dr. Deepak Greenfield Calcium [Mass/Vol] 8.8 mg/dL Normal 8.5-10.1 [facility] Comment on above: Performed By: #### C BC #### [facility] [address] [address] [address] Deepak Greenfield Chloride [Moles/Vol] 105 mmol/L Normal 98-107 [facility] Comment on above: Performed By: #### C BC #### [facility] [address] [address] [address] Deepak Greenfield CO2 [Moles/Vol] 26.4 mmol/L Normal 21.0-32.0 [facility] Comment on above: Performed By: #### C BC #### [facility] [address] [address] [address] Deepak Greenfield Creatinine [Mass/Vol] 0.70 mg/dL Normal 0.70-1.30 [facility] Comment on above: Performed By: #### C BC #### [facility] [address] [address] [address] Deepak Greenfield EGFR-AF NAMIBIAN >60 Normal >=60 [facility] Comment on above: Performed By: #### C BC #### [facility] [address] [place] [address] Dr. Deepak Greenfield EGFR-NON AF NAMIBIAN >60 Normal >=60 [facility] Comment on above: Performed By: #### C BC #### [facility] [address] [address] [address] Deepak Greenfield Glucose [Mass/Vol] 129 mg/dL Critically high 74-106 [facility] Comment on above: Performed By: #### C BC #### [facility] [address] [place] [address] Dr. Deepak Greenfield Potassium [Moles/Vol] 4.3 mmol/L Normal 3.5-5.1 [facility] Comment on above: Performed By: #### C BC #### [facility] [address] [address] [address] Deepak Greenfield Sodium [Moles/Vol] 142 mmol/L Normal 136-[address] [facility] Comment on above: Performed By: #### C BC #### [facility] [address] [place] [address] Dr. Deepak Greenfield Urea nitrogen [Mass/Vol] 6.0 mg/dL Critically low 7.0-18.0 [facility] Comment on above: Performed By: #### C BC #### [facility] [address] [place] [address] Dr. Deepak Greenfield Urea nitrogen/Creatinine [Mass ratio] 8.6 mg/mg Normal [facility] Comment on above: Performed By: #### C BC #### [facility] [address] [place] [address] Dr. Deepak Greenfield AMMONIAon 07-30-2022 Ammonia (P) [Moles/Vol] 64 umol/L Critically high 11-32 [facility] Comment on above: Performed By: #### C BC #### [facility] [address] [place] [address] Dr. Deepak Greenfield CBC AUTO DIFFon 07-30-2022 BASO # 0.0 103/ul Normal 0.0-0.1 [facility] Comment on above: Performed By: #### I NFLUAB #### [facility] [address] [place] [address] Dr. Deepak Greenfield Basophils/100 WBC (Bld) 0.0 % Critically low 0.2-2.0 [facility] Comment on above: Performed By: #### I NFLUAB #### [facility] [address] [place] [address] Dr. Deepak Greenfield EO # 0.0 103/ul Normal 0.0-0.7 [facility] Comment on above: Performed By: #### I NFLUAB #### [facility] [address] [place] [address] Dr. Deepak Greenfield Eosinophils/100 WBC (Bld) 0.0 % Critically low 0.9-7.0 [facility] Comment on above: Performed By: #### I NFLUAB #### [facility] [address] [place] [address] Dr. Deepak Greenfield Erythrocyte distribution width (RBC) [Ratio] 13.1 % Normal 11.0-15.0 [facility] Comment on above: Performed By: #### I NFLUAB #### [facility] [address] [place] [address] Dr. Deepak Greenfield Hematocrit (Bld) [Volume fraction] 31.4 % Critically low 42.0-54.0 [facility] Comment on above: Performed By: #### I NFLUAB #### [facility] [address] [place] [address] Dr. Deepak Greenfield Hemoglobin (Bld) [Mass/Vol] 10.5 g/dL Critically low 14.0-18.0 [facility] Comment on above: Performed By: #### I NFLUAB #### [facility] [address] [place] [address] Dr. Deepak Greenfield IG # 0.01 10e3/ul Normal 0.00-0.03 [facility] Comment on above: Performed By: #### I NFLUAB #### [facility] [address] [place] [address] Dr. Deepak Greenfield IG % 0.2 % Normal 0.0-0.5 [facility] Comment on above: Performed By: #### I NFLUAB #### [facility] [address] [place] [address] Dr. Deepak Greenfield LYMPH # 1.5 103/ul Normal 1.2-3.8 [facility] Comment on above: Performed By: #### I NFLUAB #### [facility] [address] [place] [address] Dr. Deepak Greenfield Lymphocytes/100 WBC (Bld) 27.5 % Normal 20.5-60.0 [facility] Comment on above: Performed By: #### I NFLUAB #### [facility] [address] [place] [address] Dr. Deepak Greenfield MANUAL DIFF REQ NO Normal [facility] Comment on above: Performed By: #### I NFLUAB #### [facility] [address] [place] [address] Dr. Deepak Greenfield MCH (RBC) [Entitic mass] 32.4 pg Normal 25.9-34.0 [facility] Comment on above: Performed By: #### I NFLUAB #### [facility] [address] [place] [address] Dr. Deepak Greenfield MCHC (RBC) [Mass/Vol] 33.4 g/dL Normal 29.9-35.2 [facility] Comment on above: Performed By: #### I NFLUAB #### [facility] [address] [address] [address] Deepak Greenfield MCV (RBC) [Entitic vol] 96.9 fL Critically high 80.0-94.0 [facility] Comment on above: Performed By: #### I NFLUAB #### [facility] [address] [address] [address] Deepak Greenfield MONO # 0.2 103/ul Critically low 0.3-0.8 [facility] Comment on above: Performed By: #### I NFLUAB #### [facility] [address] [address] [address] Deepak Greenfield Monocytes/100 WBC (Bld) 2.9 % Normal 1.7-12.0 [facility] Comment on above: Performed By: #### I NFLUAB #### [facility] [address] [place] [address] Dr. Deepak Greenfield NEUT # 3.8 103/ul Normal 1.4-6.5 [facility] Comment on above: Performed By: #### I NFLUAB #### [facility] [address] [place] [address] Dr. Deepak Greenfield Neutrophils/100 WBC (Bld) 69.4 % Normal 43.0-75.0 [facility] Comment on above: Performed By: #### I NFLUAB #### [facility] [address] [place] [address] Dr. Deepak Greenfield Platelet mean volume (Bld) [Entitic vol] 9.4 fL Critically low 9.5-13.5 [facility] Comment on above: Performed By: #### I NFLUAB #### [facility] [address] [place] [address] Dr. Deepak Greenfield PLT 256 103/ul Normal 150-450 [facility] Comment on above: Performed By: #### I NFLUAB #### [facility] [address] [place] [address] Dr. Deepak Greenfield RBC 3.24 106/ul Critically low 4.70-6.10 [facility] Comment on above: Performed By: #### I NFLUAB #### [facility] [address] [place], [place] [address] Dr. Deepak Greenfield WBC 5.5 103/ul Normal 4.0-11.0 [facility] Comment on above: Performed By: #### I NFLUAB #### [facility] [address] [place], [place] [address] Dr. Deepak Greenfield Coding Summary.on 07-30-2022 Coding Summary. CD:[id number] W w+PGhlYWQ+QG5KXCAaU22 fgUJxkH9cI9WDASmFHhcr KYXCCByJPtLspuSrOS4cs XNjZXJu IC8+GC1lAQEsCcllcUFok 6F5uNN2P52fcp3bNZnreX N3VLZsGmFcmumfu2psbUt 6IDcuNmluOyBt XEYtfA36APA8bU63Sq52q VQtqAUhk5hgbVy1QbLtCL AwUYJ5jIekDJmgu1TqDVH bG35dwIXjc3G3 BQSyyFquaEIhGnJegRO8v D4gYTtigwire5pqxlmnSk p6mh88vVVli9W0vXM1K9K ltjE4EYRkpRMh AzzvoITSyN9elziiq0yoh hcsEfXtYTKiNQd4FEs8XT FvtPujToNvQU71ZXE6WJQ cveUxV7CoMXJk uAzqBjW3n6J4Rf0FR4NOP jccE1VCAWPDHEgvmTK+PC 11bx68O3VtFzbmSxy8CWS hIUV4zNZ0wL3g VSRrGBdiy3Q3eJJ1M3Hga wZwqv5pv5qvEUZpKIaqZ3 0neEBnn5T9LCDzpXC1TBL zoUzpZhOszT53 Oyc+UXAhmDknt5KnLejbo 7ypv6dprEu4VjkoQLTezq EjoEvnVQA2c3KgWn2gPHP yhYM1nRI3iD3e DdNfPrU8DXgnT225GiZak OAdHpggL05rL3UlkOA+PH SqOmb0EAGwtEysDX7uE0C hZGRpbmctbGVm zPwnMH7wTAKntagtPHRld I1aAZMlG5n4QjOrLeQ1TI ldO4VsOVCbnmgmPb28oA5 wTgHhGkB7QPnj A0NmnjG2BGKsfYEzBPgoS RU5M37mc8C7XKIkLILhVS C9mWV3eW1hnWvesmjktPT mdDsgdmVydGlj DFszHNsrY144WQSeuWiyK kNvZGluZyBEYXRlOiAgMD QvMTMvMjAyMzwvdGQ+PHR zSGW9vHjdNHPe wRNtAJjvOb0drEojwMdvV V1iUKWjoggeEHZvnN3mOK ZteZJqnRwaMY0jHNUgdgr uo754BfOnKUM0 SUAioJJrH5YeuY0wSeHsU LNbTGKrO5IfpCEmMDdbC6 79QJzwBwC0UBKmzbJzF4O sLWFsaWduOiB0 p2Z4Us6Jo1BmguvmM4Sus BIfJcKdRuthYLs5A9RuSo wvdHI+DN73MQMzNC89KEq 0WDH4xIqyTEvd JVRtP8OlfF7mCwHoWDPcD GRkOyc+PHRhYmxlIHdpZH RoPScxMDAlJyBzdHlsZT0 wEd8kNQTwHXAr iNehySYsPxNug0faBFAvP FveTL2xrBsbY8EpmBV5JK Lyo5u8Ce08W64nQ1EilRV +ZOMgzJJ7gQL1 mY5eFcToKqX1EJadM418S uCjaXLgZvtou8yow4ufjZ q6WpB9DAXefqTwcFziTCA 6m3AmYl20X74c IHdpZHRoPSIxNSUiIHZhb Oxgcy6pgZ9hZv4+PGNvbC F4vHP8oX3iOoGmZeN7VBy fB826TzUhsDAs Fpblo5fur6rbhOo7CqLhK AEhqzRwmYiaTHJ1z3CyOn 60P8ApeLytp3BaGte1ev5 9sBLml6N2bAM6 B2FeCQNhetdjuVAtrBvtI R3iSXFzaoonZVAyxS7oVJ SaE0i9LkNeYvC0WJzvY2T gttZ5EFUwpPYu RYBidDZBiB5yglcxe3qps uecVgWtZQBhCIs7IOf3SW EbtFpwCjCdPJL3IzE6NVF 4qGUofG4guBcg ibfuzI5bJvl+TUC5nBClg KLDNO9dYokrcCG+PHRkIH U9pAlnTDhhRWXntT1hHPE oM7m3BlGeJmI6 OVhaS7SnrdQ6RVUjlFCwN VOnlLVOeJ6kzgawl4ruwu qrKfJsIHWdTSo7HEa2BIS saWduOiBsZWZ0 RbP8KQK6pXRiyA2ceTbbn jbzdK2dDhu+QmlydGggRG J0MQk4W5VnInr3MNPtrEo aGD9mpYTzZBoj Zw9yqLubrOolBH3dSAIri vbyo327HrDai2eqPNFedE OyKFyyHGG5Q89ep6K8LBP jTCZpNXU5rKZ1 fG7kiBzwiyluyIYnqMwnn iYnqDrkUXcbUUaaJ675MX PuyHceKoBxBIo2B4FpWxq 0SGYhpXdjDR7t oTPmGEsnLv8zdJtfrZtyU B5mEFLutfzwi954CbDde7 noHGEffCEzPYioXFZ9I62 hq7P6SNGwQVBw TSD2uGZ5eL3qfUpghcrqu GVmdDsgdmVydGljYWwtYW npV111GBSutIlhBrPpgYy 8F0RmFtg0XGFg vFtzZV7rxVRjCJglSn1wy BwngFgtUP4oXOPckqsfn1 38HbJjf6kuKVBbvFAoHEl dCSX2J44of3I0 DDEfFOVlMOC3sZB5xA1qz GlnbjogbGVmdDsgdmVydG fxFVqpNJdpD940TZObgKt nPlBhdGllbnQg ZCpuPNx0J5XkBehguET+P G95FCGvEB20lXNggJWpv9 hrpSk4MlGkEWEaOJX4tVw bKUixk9CkEGLp W69kqWXus6R8IRTgiFzst SFaCoIadCZ1aE9gBAspju mga8swktzgHlmhm7csyg6 4zI86W06gILgk ZHRoPSIzMCUiIHZhbGlnb d5gdL3gWc3+EHFrpWH3bR E9gA3wDTBkMvJ8HKezG60 9InRvcCIvPjxj d9hvn8fhpKq0WtQ4YTTik zNhiJfkHDS2c1ChZw82E9 9sIHdpZHRoPSIyMCUiIHZ jqBbkqd2lxG4d Ii8+JLNtxCV8qDF0gN2aU gVvUgJ4BBaqF833NwIhmR CuMhuoC42hY7FqcZP+PHR rAvz5WPAhmJkm FC2soXZxSMwyHz4uITA3Q rDbSdUpAIauR3BlVPFkgf lctnnjwYL5DVNnGDMrmI0 6Qf2whWcaPLEf oFVFtB0wrqiab3ijeiggM fZtOSHhHPy6YEf2WENszQ rbPlFvLRI0RlL4XYP8wOB ydR4atQwvnyfd uZ8oQ1GxEGAsbcwoYu73z P6tAkBvLzG4XHcsMew+U0 5DWDQPOKWHAJCELpKHEU4 5TN90gDWdz5A2 aUB5F7TeFFNgdtsyinfrs UB7JZNhHLWwhJ52pDUfYO seDy7gn6R9e141RLYbXFH reW34Dh0zkMtd NLYvoBHRbP2dlnztg1vtd wnmVdKePVPrPCh8IVb2NY LhpUqpVkMoFRB5CtX9LNW 7sHMevX0hcTxs yulyqC3gTye+MTAvMTYvM Bn0KQihcBK+GCXuMUD9oV vfTAwfFCRojV5uJPSzP4h 2PvEbOcE8HTfi S3MsISClkfinTm68nD1kV hAmYkY6MQlbL7DdxjH6BJ FcwBSgYGhiTFL1T14op3P 9TEKoLQOhTJX3 jYP7mL2vpTiifvydkRPsx DsgdmVydGljYWwtYWxpZ2 46IHRvcDsnPjQyIFllYXJ zDP68PG93eZAm y9L5cFX9N4PmEZSgmvdvc wqhsBN9QZAwEYQuuN51iH UuJAkiDb1tc5Q2x818LSN lDGMvlJ14Zx4o aFmsIQMtdQBLtY1ruhkyr 1ymbvuaSeRuWHCeYJt4II w5FKCzbHjjPxBdMNY1VkM 6KCQ7sYFtcN3v pBojdgzzpB5wEed+TWFsZ TwvdGQ+OBYtQWP5iAxgEC hrBRTcgQ7cFKVaZ0l2YiZ iIoB5PEyfZ3Ky GTFyhdxiZl45mN9wDeGoL mR4XIgoH0WzjdU1DOMdvH VcONxaUBU6N74eo2W2CUG dFBVeRDM2tYE6 xK6dmCqmgwdjnLGksWktn xCgiUogWCseTRknX157QP AizWfpLw54zEWfyXlvqgL 4J8EoCtcpjYO+ LV76ZISpER53jLGbtECov 2tvaWb8WmQaTBBlKQT2cX uwAVklj0FxRDLvR42dcOY nk6S8TWMkpYuh sXEaFsZwvAZ2zK8lXRsjc kdgm3vkbattZmdno2zfgu 18vH84N47oQFlbJPPoUEP zMCUiIHZhbGln tw4dgF1bXl3+ERBlaMR6w ND9vZ1oSmNxAoJ3GWpgH7 78ZbWwnYVvBnqgx5jyc9u pcXs0GyCyIJIq phWgqYujDHW9n6TaUk77C 29sIHdpZHRoPSIyMCUiIH DgaGkvuh2ouR8rKp3+PC9 af4bxxz36tP64 dHI+ZZJxGWU8qOsuRAgdU LGqjB5eSBzfEjM1PGFcCs VuzP07xNFaFQulVh7ynQs hmWoqFP9zMLRy abrzh400KdKoe3dxJEZfh MVeJNpsSOI8R82ge8B5TT KqEKYnPLB8sHC7iI4aqRx nbjogbGVmdDsg jrMycFnyEWncWSowC075U WFauCkxFyQvkAFjV7wneo HVDT7gGliznCS+PHRkIHN 0eWxlPSdwYWRk gL7zVKEoR4d2FsRbMpT5F BkqH8MiovE5NLFvfPMoEZ UdzSVVlG2bnrnpj3mspvh gIzAwMDAwMDt0 SJl5SFBrlYgfGhQdIBF4Q gU7TVL1pYWetT3kgAsdjt ocqZ6vNbb+RklOOjwvdGQ +TBTxRVB5iCfl QUawTKUhtW2qQZFjK1z0L uBwUkB6XQhnF9DtpfE2OG EywPXfVLIprMNMiZ2hyqp wm2sksxhzYaGh DUZdWLg1SZr5DREwvEhbS cNnUTF6MmV4ZOY4tVNpuO 0qoFtjrkcvxH5sSiz+TVJ OOjwvdGQ+PHRk WFG8eImxAErvUJWsaB1zR WFgR4b0EpTxEtL8MFtmP3 CwpzX9OHHlyVMsYFJdtZB TgY0aytezh3am ihnxTlOnYFSqHVw0ULw9K VOspBkfJlVuFPJ7XrO9UB T6lZBmvI0fcAztpxesvM6 wOyc+SUC6XKR2 UA14SX92D2DiExxdfOPgf +PHRhYmxlIHdpZHRoPS kwJEKuIuJnvXvcCI1vEc0 yZGVyLWNvbGxh cHNlOiBj (more content not included)... Normal [facility] PROF CHEM 8 (BAS METB)on Anion gap [Moles/Vol] 8.3 mmol/L Normal [facility] Comment on above: Performed By: #### I NFLUAB #### [facility] [address] [address] [address] Deepak Greenfield Calcium [Mass/Vol] 8.5 mg/dL Normal 8.5-10.[address] [facility] Comment on above: Performed By: #### I NFLUAB #### [facility] [address] [address] [address] Deepak Greenfield Chloride [Moles/Vol] 104 mmol/L Normal 98-107 [facility] Comment on above: Performed By: #### I NFLUAB #### [facility] [address] [place] [address] [address] Deepak Greenfield CO2 [Moles/Vol] 30.0 mmol/L Normal 21.0-32.0 [facility] Comment on above: Performed By: #### I NFLUAB #### [facility] [address] [place] [address] [address] Deepak Greenfield Creatinine [Mass/Vol] 0.46 mg/dL Critically low 0.70-1.30 [facility] Comment on above: Performed By: #### I NFLUAB #### [facility] [address] [place] [address] [address] Deepak Greenfield EGFR-AF NAMIBIAN >60 Normal >=60 [facility] Comment on above: Performed By: #### I NFLUAB #### [facility] [address] [place] [address] [address] Deepak Greenfield EGFR-NON AF NAMIBIAN >60 Normal >=60 [facility] Comment on above: Performed By: #### I NFLUAB #### [facility] [address] [place] [address] [address] Deepak Greenfield Glucose [Mass/Vol] 152 mg/dL Critically high 74-106 [facility] Comment on above: Performed By: #### I NFLUAB #### [facility] [address] [place] [address] Dr. Deepak Greenfield Potassium [Moles/Vol] 4.3 mmol/L Normal 3.5-5.1 [facility] Comment on above: Performed By: #### I NFLUAB #### [facility] [address] [place] [address] [address] Deepak Greenfield Sodium [Moles/Vol] 138 mmol/L Normal 136-[address] [facility] Comment on above: Performed By: #### I NFLUAB #### [facility] [address] [place] [address] [address] Deepak Greenfield Urea nitrogen [Mass/Vol] 9.0 mg/dL Normal 7.0-18.0 [facility] Comment on above: Performed By: #### I NFLUAB #### [facility] [address] [place] [address] [address] Deepak Greenfield Urea nitrogen/Creatinine [Mass ratio] 19.6 mg/mg Normal [facility] Comment on above: Performed By: #### I NFLUAB #### [facility] [address] [place] [address] [address] Deepak Greenfield AMMONIAon 07-29-2022 Ammonia (P) [Moles/Vol] 69 umol/L Critically high -32 [facility] Comment on above: Performed By: #### A MM #### [facility] [address] [place] [address] Dr. Deepak Greenfield CBC AUTO DIFFon 07-29-2022 BASO # 0.0 103/ul Normal 0.0-0.1 [facility] Comment on above: Performed By: #### M G, CMP #### [facility] [address] [place] [address] Dr. Deepak Greenfield Basophils/100 WBC (Bld) 0.2 % Normal 0.2-2.0 [facility] Comment on above: Performed By: #### M G, CMP #### [facility] [address] [place] [address] Dr. Deepak Greenfield EO # 0.0 103/ul Normal 0.0-0.7 [facility] Comment on above: Performed By: #### M G, CMP #### [facility] [address] [place] [address] Dr. Deepak Greenfield Eosinophils/100 WBC (Bld) 0.0 % Critically low 0.9-7.0 [facility] Comment on above: Performed By: #### M G, CMP #### [facility] [address] [place] [address] Dr. Deepak Greenfield Erythrocyte distribution width (RBC) [Ratio] 13.2 % Normal 11.0-15.0 [facility] Comment on above: Performed By: #### M G, CMP #### [facility] [address] [place] [address] Dr. Deepak Greenfield Hematocrit (Bld) [Volume fraction] 33.1 % Critically low 42.0-54.0 [facility] Comment on above: Performed By: #### M G, CMP #### [facility] [address] [place] [address] Dr. Deepak Greenfield Hemoglobin (Bld) [Mass/Vol] 10.8 g/dL Critically low 14.0-18.0 [facility] Comment on above: Performed By: #### M G, CMP #### [facility] [address] [place] [address] Dr. Deepak Greenfield IG # 0.04 10e3/ul Critically high 0.00-0.03 [facility] Comment on above: Performed By: #### M G, CMP #### [facility] [address] [place] [address] Dr. Deepak Greenfield IG % 0.5 % Normal 0.0-0.5 [facility] Comment on above: Performed By: #### M G, CMP #### [facility] [address] [place] [address] Dr. Deepak Greenfield LYMPH # 1.1 103/ul Critically low 1.2-3.8 [facility] Comment on above: Performed By: #### M G, CMP #### [facility] [address] [place] [address] Dr. Deepak Greenfield Lymphocytes/100 WBC (Bld) 13.6 % Critically low 20.5-60.0 [facility] Comment on above: Performed By: #### Karishma G, CMP #### [facility] [address] [place] [address] Dr. Deepak Greenfield MANUAL DIFF REQ NO Normal [facility] Comment on above: Performed By: #### M G, CMP #### [facility] [address] [place] [address] Dr. Deepak Greenfield MCH (RBC) [Entitic mass] 32.2 pg Normal 25.9-34.0 [facility] Comment on above: Performed By: #### M G, CMP #### [facility] [address] [place] [address] Dr. Deepak Greenfield MCHC (RBC) [Mass/Vol] 32.6 g/dL Normal 29.9-35.2 [facility] Comment on above: Performed By: #### M G, CMP #### [facility] [address] [place] [address] Dr. Deepak Greenfield MCV (RBC) [Entitic vol] 98.8 fL Critically high 80.0-94.0 [facility] Comment on above: Performed By: #### M G, CMP #### [facility] [address] [place] [address] Dr. Deepak Greenfield MONO # 0.3 103/ul Normal 0.3-0.8 [facility] Comment on above: Performed By: #### M G, CMP #### [facility] [address] [place] [address] Dr. Deepak Greenfield Monocytes/100 WBC (Bld) 3.8 % Normal 1.7-12.0 [facility] Comment on above: Performed By: #### M G, CMP #### [facility] [address] [place] [address] Dr. Deepak Greenfield NEUT # 6.7 103/ul Critically high 1.4-6.5 [facility] Comment on above: Performed By: #### M G, CMP #### [facility] [address] [place] [address] Dr. Deepak Greenfield Neutrophils/100 WBC (Bld) 81.9 % Critically high 43.0-75.0 [facility] Comment on above: Performed By: #### M G, CMP #### [facility] [address] [place] [address] Dr. Deepak Greenfield Platelet mean volume (Bld) [Entitic vol] 9.6 fL Normal 9.5-13.5 [facility] Comment on above: Performed By: #### M G, CMP #### [facility] [address] [place] [address] Dr. Deepak Greenfield PLT 257 103/ul Normal 150-450 [facility] Comment on above: Performed By: #### M G, CMP #### [facility] [address] [place] [address] Dr. Deepak Greenfield RBC 3.35 106/ul Critically low 4.70-6.10 [facility] Comment on above: Performed By: #### M G, CMP #### [facility] [address] [place] [address] Dr. Deepak Greenfield WBC 8.2 103/ul Normal 4.0-11.0 [facility] Comment on above: Performed By: #### M G, CMP #### [facility] [address] [place] [address] Dr. Deepak Greenfield LACTATE/LACTIC ACIDon 2022 Lactate [Moles/Vol] 1.1 mmol/L Normal 0.4-2.0 [facility] Comment on above: Performed By: #### I NFLUAB #### [facility] [address] [address] [address] Deepak Greenfield PROF CHEM 8 (BAS METB)on Anion gap [Moles/Vol] 9.4 mmol/L Normal [facility] Comment on above: Performed By: #### I NFLUAB #### [facility] [address] [address] [address] Deepak Greenfield Calcium [Mass/Vol] 8.0 mg/dL Critically low 8.5-10.1 [facility] Comment on above: Performed By: #### I NFLUAB #### [facility] [address] [address] [address] Deepak Greenfield Chloride [Moles/Vol] 105 mmol/L Normal 98-107 [facility] Comment on above: Performed By: #### I NFLUAB #### [facility] [address] [address] [address] Deepak Greenfield CO2 [Moles/Vol] 30.7 mmol/L Normal 21.0-32.0 [facility] Comment on above: Performed By: #### I NFLUAB #### [facility] [address] [address] [address] Deepak Greenfield Creatinine [Mass/Vol] 0.66 mg/dL Critically low 0.70-1.30 [facility] Comment on above: Performed By: #### I NFLUAB #### [facility] [address] [address] [address] Deepak Greenfield EGFR-AF NAMIBIAN >60 Normal >=60 [facility] Comment on above: Performed By: #### I NFLUAB #### [facility] [address] [address] [address] Deepak Greenfield EGFR-NON AF NAMIBIAN >60 Normal >=60 [facility] Comment on above: Performed By: #### I NFLUAB #### [facility] [address] [address] [address] Deepak Greenfield Glucose [Mass/Vol] 177 mg/dL Critically high 74-106 [facility] Comment on above: Performed By: #### I NFLUAB #### [facility] [address] [address] [address] Deepak Greenfield Potassium [Moles/Vol] 4.1 mmol/L Normal 3.5-5.1 [facility] Comment on above: Performed By: #### I NFLUAB #### [facility] [address] [place] [address] Dr. Deepak Greenfield Sodium [Moles/Vol] 141 mmol/L Normal 136-[address] [facility] Comment on above: Performed By: #### I NFLUAB #### [facility] [address] [place] [address] Dr. Deepak Greenfield Urea nitrogen [Mass/Vol] 9.0 mg/dL Normal 7.0-18.0 [facility] Comment on above: Performed By: #### I NFLUAB #### [facility] [address] [address] [address] Deepak Greenfield Urea nitrogen/Creatinine [Mass ratio] 13.6 mg/mg Normal [facility] Comment on above: Performed By: #### I NFLUAB #### [facility] [address] [place] [address] Dr. Deepak Greenfield AMMONIAon 07-28-2022 Ammonia (P) [Moles/Vol] 68 umol/L Critically high 11-32 [facility] Comment on above: Performed By: #### B MP #### [facility] [address] [place] [address] Dr. Deepak Greenfield CBC AUTO DIFFon 07-28-2022 BASO # 0.0 103/ul Normal 0.0-0.1 [facility] Comment on above: Performed By: #### C BC #### [facility] [address] [place] [address] Dr. Deepak Greenfield Basophils/100 WBC (Bld) 0.3 % Normal 0.2-2.0 [facility] Comment on above: Performed By: #### C BC #### [facility] [address] [place] [address] Dr. Deepak Greenfield EO # 0.0 103/ul Normal 0.0-0.7 [facility] Comment on above: Performed By: #### C BC #### [facility] [address] [place] [address] Dr. Deepak Greenfield Eosinophils/100 WBC (Bld) 0.0 % Critically low 0.9-7.0 [facility] Comment on above: Performed By: #### C BC #### [facility] [address] [place] [address] Dr. Deepak Greenfield Erythrocyte distribution width (RBC) [Ratio] 13.3 % Normal 11.0-15.0 [facility] Comment on above: Performed By: #### C BC #### [facility] [address] [place] [address] Dr. Deepak Greenfield Hematocrit (Bld) [Volume fraction] 37.0 % Critically low 42.0-54.0 [facility] Comment on above: Performed By: #### C BC #### [facility] [address] [place] [address] Dr. Deepak Greenfield Hemoglobin (Bld) [Mass/Vol] 12.3 g/dL Critically low 14.0-18.0 [facility] Comment on above: Performed By: #### C BC #### [facility] [address] [place] [address] Dr. Deepak Greenfield IG # 0.06 10e3/ul Critically high 0.00-0.03 [facility] Comment on above: Performed By: #### C BC #### [facility] [address] [place] [address] Dr. Deepak Greenfield IG % 0.5 % Normal 0.0-0.5 [facility] Comment on above: Performed By: #### C BC #### [facility] [address] [place] [address] Dr. Deepak Greenfield LYMPH # 2.9 103/ul Normal 1.2-3.8 [facility] Comment on above: Performed By: #### C BC #### [facility] [address] [place] [address] Dr. Deepak Greenfield Lymphocytes/100 WBC (Bld) 23.5 % Normal 20.5-60.0 [facility] Comment on above: Performed By: #### C BC #### [facility] [address] [place] [address] Dr. Deepak Greenfield MANUAL DIFF REQ NO Normal [facility] Comment on above: Performed By: #### C BC #### [facility] [address] [place] [address] Dr. Deepak Greenfield MCH (RBC) [Entitic mass] 32.4 pg Normal 25.9-34.0 [facility] Comment on above: Performed By: #### C BC #### [facility] [address] [place] [address] Dr. Deepak Greenfield MCHC (RBC) [Mass/Vol] 33.2 g/dL Normal 29.9-35.2 [facility] Comment on above: Performed By: #### C BC #### [facility] [address] [place] [address] Dr. Deepak Greenfield MCV (RBC) [Entitic vol] 97.4 fL Critically high 80.0-94.0 [facility] Comment on above: Performed By: #### C BC #### [facility] [address] [place] [address] Dr. Deepak Greenfield MONO # 1.0 103/ul Critically high 0.3-0.8 [facility] Comment on above: Performed By: #### C BC #### [facility] [address] [place] [address] Dr. Deepak Greenfield Monocytes/100 WBC (Bld) 8.0 % Normal 1.7-12.0 [facility] Comment on above: Performed By: #### C BC #### [facility] [address] [place] [address] Dr. Deepak Greenfield NEUT # 8.3 103/ul Critically high 1.4-6.5 [facility] Comment on above: Performed By: #### C BC #### [facility] [address] [address] [address] Deepak Greenfield Neutrophils/100 WBC (Bld) 67.7 % Normal 43.0-75.0 [facility] Comment on above: Performed By: #### C BC #### [facility] [address] [address] [address] Deepak Greenfield Platelet mean volume (Bld) [Entitic vol] 9.7 fL Normal 9.5-13.5 [facility] Comment on above: Performed By: #### C BC #### [facility] [address] [address] [address] Deepak Greenfield PLT 325 103/ul Normal 150-450 [facility] Comment on above: Performed By: #### C BC #### [facility] [address] [place] [address] Dr. Deepak Greenfield RBC 3.80 106/ul Critically low 4.70-6.10 [facility] Comment on above: Performed By: #### C BC #### [facility] [address] [place] [address] Dr. Deepak Greenfield WBC 12.2 103/ul Critically high 4.0-11.0 [facility] Comment on above: Performed By: #### C BC #### [facility] [address] [place] [address] Dr. Deepak Greenfield CULTURE BLOODon 07-28-2022 Microscopic examination of blood, culture Culture Observations: NO GROWTH AT 5 DAYS. Normal [facility] Comment on above: Performed By: #### B LDCX2 #### [facility] [address] [place] [address] Dr. Deepak Greenfield Microscopic examination of blood, culture Culture Observations: NO GROWTH AT 5 DAYS. Normal [facility] Comment on above: Performed By: #### C BC #### [facility] [address] [place] [address] Dr. Deepak Greenfield LACTATE/LACTIC ACIDon 2022 Lactate [Moles/Vol] 2.5 mmol/L Critically high 0.4-2.0 [facility] Comment on above: Performed By: #### C VDTB #### [facility] [address] [place] [address] Dr. Deepak Greenfield PROF 14(COMP METB)on 023 Albumin [Mass/Vol] 3.1 g/dL Critically low 3.4-5.0 [facility] e [facility] Comment on above: Performed By: #### C BC #### [facility] [address] [place] [address] Dr. Deepak Greenfield Albumin/Globulin [Mass ratio] 0.7 {ratio} Normal [facility] Comment on above: Performed By: #### C BC #### [facility] [address] [place] [address] Dr. Deepak Greenfield ALP [Catalytic activity/Vol] 51 U/L Normal 46-116 [facility] Comment on above: Performed By: #### C BC #### [facility] [address] [place] [address] Dr. Deepak Greenfield ALT [Catalytic activity/Vol] 106 U/L Critically high 16-63 [facility] Comment on above: Performed By: #### C BC #### [facility] [address] [place] [address] Dr. Deepak Greenfield Anion gap [Moles/Vol] 14.2 mmol/L Normal [facility] Comment on above: Performed By: #### C BC #### [facility] [address] [place] [address] Dr. Deepak Greenfield AST [Catalytic activity/Vol] 81 U/L Critically high 15-37 [facility] Comment on above: Performed By: #### C BC #### [facility] [address] [place] [address] Dr. Deepak Greenfield Bilirubin [Mass/Vol] 0.4 mg/dL Normal 0.2-1.0 [facility] Comment on above: Performed By: #### C BC #### [facility] [address] [place] [address] Dr. Deepak Greenfield Calcium [Mass/Vol] 8.9 mg/dL Normal 8.5-10.[address] [facility] Comment on above: Performed By: #### C BC #### [facility] [address] [address] [address] Deepak Greenfield Chloride [Moles/Vol] 105 mmol/L Normal 98-107 [facility] Comment on above: Performed By: #### C BC #### [facility] [address] [address] [address] Deepak Greenfield CO2 [Moles/Vol] 27.9 mmol/L Normal 21.0-32.0 [facility] Comment on above: Performed By: #### C BC #### [facility] [address] [place] [address] Dr. Deepak Greenfield Creatinine [Mass/Vol] 0.77 mg/dL Normal 0.70-1.30 [facility] Comment on above: Performed By: #### C BC #### [facility] [address] [place] [address] Dr. Deepak Greenfield EGFR-AF NAMIBIAN >60 Normal >=60 [facility] Comment on above: Performed By: #### C BC #### [facility] [address] [place] [address] Dr. Deepak Greenfield EGFR-NON AF NAMIBIAN >60 Normal >=60 [facility] Comment on above: Performed By: #### C BC #### [facility] [address] [place] [address] Dr. Deepak Greenfield Globulin (S) [Mass/Vol] 4.3 g/dL Normal [facility] Comment on above: Performed By: #### C BC #### [facility] [address] [place] [address] Dr. Deepak Greenfield Glucose [Mass/Vol] 162 mg/dL Critically high 74-106 [facility] Comment on above: Performed By: #### C BC #### [facility] [address] [place] [address] Dr. Deepak Greenfield Potassium [Moles/Vol] 4.1 mmol/L Normal 3.5-5.1 [facility] Comment on above: Performed By: #### C BC #### [facility] [address] [place] [address] Dr. Deepak Greenfield Protein [Mass/Vol] 7.4 g/dL Normal 6.4-8.2 [facility] Comment on above: Performed By: #### C BC #### [facility] [address] [place] [address] Dr. Deepak Greenfield Sodium [Moles/Vol] 143 mmol/L Normal 136-145 [facility] Comment on above: Performed By: #### C BC #### [facility] [address] [place] [address] Dr. Deepak Greenfield Urea nitrogen [Mass/Vol] 12.0 mg/dL Normal 7.0-18.0 [facility] Comment on above: Performed By: #### C BC #### [facility] [address] [place] [address] Dr. Deepak Greenfield Urea nitrogen/Creatinine [Mass ratio] 15.6 mg/mg Normal [facility] Comment on above: Performed By: #### C BC #### [facility] [address] [place] [address] Dr. Deepak Greenfield RESPIRATORY PANEL PLUSon Adenovirus Not detected Normal NOT DETECTED [facility] Comment on above: Performed By: #### B MP #### [facility] [address] [place] [address] Dr. Deepak Murphy. Parapertusis Not detected Normal NOT DETECTED [facility] Comment on above: Performed By: #### B MP #### [facility] [address] [place] [address] Dr. Deepak Greenfield B. Pertussis Not detected Normal NOT DETECTED [facility] Comment on above: Performed By: #### B MP #### [facility] [address] [place] [address] Dr. Deepak Greenfield Chlamydia Pneumoniae Not detected Normal NOT DETECTED [facility] Comment on above: Performed By: #### B MP #### [facility] [address] [place] [address] Dr. Deepak Greenfield Coronavirus 229E Not detected Normal NOT DETECTED [facility] Comment on above: Performed By: #### B MP #### [facility] [address] [place] [address] Dr. Deepak Greenfield Coronavirus HKU1 Not detected Normal NOT DETECTED [facility] Comment on above: Performed By: #### B MP #### [facility] [address] [address] [address] Deepak Greenfield Coronavirus NL63 Not detected Normal NOT DETECTED [facility] Comment on above: Performed By: #### B MP #### [facility] [address] [place] [address] Dr. Deepak Greenfield Coronavirus OC43 Not detected Normal NOT DETECTED [facility] Comment on above: Performed By: #### B MP #### [facility] [address] [place] [address] Dr. Deepak Greenfield Influenza A H1 Not detected Normal NOT DETECTED [facility] Comment on above: Performed By: #### B MP #### [facility] [address] [place] [address] Dr. Deepak Greenfield Influenza A H1 2009 Not detected Normal NOT DETECTED T [facility] Comment on above: Performed By: #### B MP #### [facility] [address] [place] [address] Dr. Deepak Greenfield Influenza A H3 Not detected Normal NOT DETECTED [facility] Comment on above: Performed By: #### B MP #### [facility] [address] [place] [address] Dr. Deepak Greenfield Influenza B Not detected Normal NOT DETECTED [facility] Comment on above: Performed By: #### B MP #### [facility] [address] [place] [address] Dr. Deepak Greenfield Metapneumovirus Detected Abnormal NOT DETECTED [facility] Comment on above: Performed By: #### B MP #### [facility] [address] [place] [address] Dr. Deepak Greenfield Mycoplas. Pneumoniae Not detected Normal NOT DETECTED [facility] Comment on above: Performed By: #### B MP #### [facility] [address] [place] [address] Dr. Deepak Greenfield Parainfluenza 1 Not detected Normal NOT DETECTED [facility] Comment on above: Performed By: #### B MP #### [facility] [address] [place] [address] Dr. Deepak Greenfield Parainfluenza 2 Not detected Normal NOT DETECTED [facility] Comment on above: Performed By: #### B MP #### [facility] [address] [place] [address] Dr. Deepak Greenfield Parainfluenza 3 Not detected Normal NOT DETECTED [facility] Comment on above: Performed By: #### B MP #### [facility] [address] [place] [address] Dr. Deepak Greenfield Parainfluenza 4 Not detected Normal NOT DETECTED [facility] Comment on above: Performed By: #### B MP #### [facility] [address] [place] [address] Dr. Deepak Greenfield Rhino/Enterovirus Not detected Normal NOT DETECTED [facility] Comment on above: Performed By: #### B MP #### [facility] [address] [place] [address] Dr. Deepak Greenfield RP2 Header 1 RESPIRATORY PANEL: VIRUSES Normal [facility] Comment on above: Performed By: #### B MP #### [facility] [address] [place] [address] Dr. Deepak Greenfield RP2 Header 2 RESPIRATORY PANEL: BACTERIA Normal [facility] Comment on above: Performed By: #### B MP #### [facility] [address] [place] [address] Dr. Deepak Greenfield RSV Not detected Normal NOT DETECTED [facility] Comment on above: Performed By: #### B MP #### [facility] [address] [place] [address] Dr. Deepak Greenfield SARS-CoV-2 (COVID-19) RNA CINDY+probe Ql (Unsp spec) Not detected Normal NOT DETECTED [facility] Comment on above: Performed By: #### B MP #### [facility] [address] [place] [address] Dr. Deepak Greenfield XR CHEST 1 Von [...] Akua PEREZ Date: 2022-07-28 20:23 Normal [facility] AMMONIAon 07-27-2022 Ammonia (P) [Moles/Vol] 76 umol/L Critically high 11-32 [facility] Comment on above: Performed By: #### M G, CMP #### [facility] [address] [place] [address] Dr. Deepak Greenfield CBC W MANUAL DIFFon 07-28-19 23 ATYPICAL LYMPH # Normal [facility] Comment on above: Performed By: #### M G, CMP #### [facility] [address] [place] [address] Dr. Deepak Greenfield ATYPICAL LYMPH % Normal [facility] Comment on above: Performed By: #### M G, CMP #### [facility] [address] [place] [address] Dr. Deepak Greenfield BAND # 0.4 103/ul Critically high 0.0-0.3 [facility] Comment on above: Performed By: #### M G, CMP #### [facility] [address] [place] [address] Dr. Deepak Greenfield BAND % 4 % Normal 0-5 [facility] Comment on above: Performed By: #### M G, CMP #### [facility] [address] [place] [address] Dr. Deepak Greenfield BASOM # 0.00 103/ul Normal 0.00-0.10 [facility] Comment on above: Performed By: #### M G, CMP #### [facility] [address] [place] [address] Dr. Deepak Greenfield BASOM % 0.0 % Critically low 0.2-2.0 [facility] Comment on above: Performed By: #### M G, CMP #### [facility] [address] [place] [address] Dr. Deepak Greenfield BLAST # Normal [facility] Comment on above: Performed By: #### M G, CMP #### [facility] [address] [place] [address] Dr. Deepak Greenfield BLAST % Normal [facility] Comment on above: Performed By: #### M G, CMP #### [facility] [address] [place] [address] Dr. Deepak Greenfield CORRECTED WBC Normal 4.0-11.0 [facility] Comment on above: Performed By: #### M G, CMP #### [facility] [address] [place] [address] Dr. Deepak Greenfield EOS # 0.00 103/ul Normal 0.00-0.70 [facility] Comment on above: Performed By: #### M G, CMP #### [facility] [address] [place] [address] Dr. Deepak Greenfield EOS% 0.0 % Critically low 0.9-7.0 [facility] Comment on above: Performed By: #### M G, CMP #### [facility] [address] [place] [address] Dr. Deepak Greenfield HCT 29.6 % Critically low 42.0-54.0 [facility] Comment on above: Performed By: #### M G, CMP #### [facility] [address] [place] [address] Dr. Deepak Greenfield HGB 10.4 g/dl Critically low 14.0-18.0 [facility] Comment on above: Performed By: #### M G, CMP #### [facility] [address] [address] [address] Deepak Greenfield LYMPHM # 0.71 103/ul Critically low 1.20-3.80 [facility] Comment on above: Performed By: #### M G, CMP #### [facility] [address] [address] [address] Deepak Greenfield LYMPHM% 8.0 % Critically low 20.5-60.0 [facility] Comment on above: Performed By: #### M G, CMP #### [facility] [address] [address] [address] Deepak Greenfield MCH 33.0 pg Normal 25.9-34.0 [facility] Comment on above: Performed By: #### M G, CMP #### [facility] [address] [place] [address] Dr. Deepak Greenfield MCHC 35.1 g/dl Normal 29.9-35.2 [facility] Comment on above: Performed By: #### M G, CMP #### [facility] [address] [address] [address] Deepak Greenfield MCV 94.0 fL Normal 80.0-94.0 [facility] Comment on above: Performed By: #### M G, CMP #### [facility] [address] [place] [address] Dr. Deepak Greenfield METAMYELOCYTE # Normal [facility] Comment on above: Performed By: #### M G, CMP #### [facility] [address] [address] [address] Deepak Greenfield METAMYELOCYTE % Normal [facility] Comment on above: Performed By: #### M G, CMP #### [facility] [address] [address] [address] Deepak Greenfield MONOM# 0.71 103/ul Normal 0.30-0.80 [facility] Comment on above: Performed By: #### M G, CMP #### [facility] [address] [address] [address] Deepak Greenfield MONOM% 8.0 % Normal 1.7-12.0 [facility] Comment on above: Performed By: #### M G, CMP #### [facility] [address] [address] [address] Deepak Greenfield MPV 9.6 fL Normal 9.5-13.5 [facility] Comment on above: Performed By: #### M G, CMP #### [facility] [address] [address] [address] Deepak Greenfield MYELOCYTE # Normal [facility] Comment on above: Performed By: #### M G, CMP #### [facility] [facility] [address] [place] [address] Dr. Deepak Greenfiled MYELOCYTE % Normal [facility] Comment on above: Performed By: #### M G, CMP #### [facility] [address] [place] [address] Dr. Deepak Greenfield NRBC Normal [facility] Comment on above: Performed By: #### M G, CMP #### [facility] [address] [address] [address] Deepak Greenfield PLT 267 103/ul Normal 150-450 [facility] Comment on above: Performed By: #### M G, CMP #### [facility] [address] [place] [address] Dr. Deepak Greenfield RBC 3.15 106/ul Critically low 4.70-6.10 [facility] Comment on above: Performed By: #### M G, CMP #### [facility] [address] [place] [address] Dr. Deepak Greenfield RDW 12.9 % Normal 11.0-15.0 [facility] Comment on above: Performed By: #### M G, CMP #### [facility] [address] [place] [address] Dr. Deepak Greenfield SEG # 7.12 103/ul Critically high 1.40-6.50 [facility] Comment on above: Performed By: #### M G, CMP #### [facility] [address] [place] [address] Dr. Deepak Greenfield SEG % 80.0 % Critically high 43.0-75.0 [facility] Comment on above: Performed By: #### M G, CMP #### [facility] [address] [place] [address] Dr. Deepak Greenfield WBC 8.9 103/ul Normal 4.0-11.0 [facility] Comment on above: Performed By: #### M G, CMP #### [facility] [address] [address] [address] Deepak Greenfield PROF CHEM 8 (BAS METB)on Anion gap [Moles/Vol] 12.4 mmol/L Normal [facility] Comment on above: Performed By: #### C BC #### [facility] [address] [place] [address] Dr. Deepak Greenfield Calcium [Mass/Vol] 8.2 mg/dL Critically low 8.5-10.1 [facility] Comment on above: Performed By: #### C BC #### [facility] [address] [place] [address] Dr. Deepak Greenfield Chloride [Moles/Vol] 101 mmol/L Normal 98-107 [facility] Comment on above: Performed By: #### C BC #### [facility] [address] [place] [address] Dr. Deepak Greenfield CO2 [Moles/Vol] 25.0 mmol/L Normal 21.0-32.0 [facility] Comment on above: Performed By: #### C BC #### [facility] [address] [place] [address] Dr. Deepak Greenfield Creatinine [Mass/Vol] 0.53 mg/dL Critically low 0.70-1.30 [facility] Comment on above: Performed By: #### C BC #### [facility] [address] [place] [address] Dr. Deepak Greenfiled EGFR-AF NAMIBIAN >60 Normal >=60 [facility] Comment on above: Performed By: #### C BC #### [facility] [address] [place] [address] Dr. Deepak Greenfield EGFR-NON AF NAMIBIAN >60 Normal >=60 [facility] Comment on above: Performed By: #### C BC #### [facility] [address] [address] [address] Deepak Greenfield Glucose [Mass/Vol] 161 mg/dL Critically high 74-106 [facility] Comment on above: Performed By: #### C BC #### [facility] [address] [address] [address] Deepak Greenfield Potassium [Moles/Vol] 4.4 mmol/L Normal 3.5-5.1 [facility] Comment on above: Performed By: #### C BC #### [facility] [address] [address] [address] Deepak Greenfield Sodium [Moles/Vol] 134 mmol/L Critically low 136-145 [facility] Comment on above: Performed By: #### C BC #### [facility] [address] [address] [address] Deepak Greenfield Urea nitrogen [Mass/Vol] 13.0 mg/dL Normal 7.0-18.0 [facility] Comment on above: Performed By: #### C BC #### [facility] [address] [address] [address] Deepak Greenfield Urea nitrogen/Creatinine [Mass ratio] 24.5 mg/mg Normal [facility] Comment on above: Performed By: #### C BC #### [facility] [address] [address] [address] Deepak Greenfield AMMONIAon 07-26-2022 Ammonia (P) [Moles/Vol] 56 umol/L Critically high 11-32 [facility] Comment on above: Performed By: #### M G, CMP #### [facility] [address] [address] [address] Deepak Greenfield CARDIAC BEATRIS ADMITon 023 CK [Catalytic activity/Vol] 83 U/L Normal 39-308 [facility] Comment on above: Performed By: #### B MP #### [facility] [address] [address] [address] Deepak Greenfield CK.MB [Mass/Vol] 0.86 ng/mL Normal <=3.60 [facility] Comment on above: Performed By: #### B MP #### [facility] [address] [place] [address] Dr. Deepak Greenfield HSTROP 7.4 pg/mL Normal 4.0-76.1 [facility] Comment on above: Result Comment: CUT- OFF POINTS HAVE BEEN ESTABLISHED BASED ON THE FOURTH UNIVERSAL DEFINITIONS OF MYOCARDIAL INFARCTION. THE UPPER REFERENCE LIMIT (URL) OF TROPONIN, DEFINED THE 99TH PERCENTILE OF cTnI DISTRIBUTION IN A REFERENCE POPULATION, HAS BEEN CONFIRMED THE DECISION THRESHOLD FOR IA DIAGNOSIS. Performed By: #### B MP #### [facility] [address] [address] [address] Deepak Greenfield VALE 46 ng/mL Normal 16-96 [facility] Comment on above: Performed By: #### B MP #### [facility] [address] [place] [address] Dr. Deepak Greenfield CBC AUTO DIFFon 07-26-2022 BASO # 0.1 103/ul Normal 0.0-0.1 [facility] Comment on above: Performed By: #### M G, CMP #### [facility] [address] [place] [address] Dr. Deepak Greenfield Basophils/100 WBC (Bld) 0.5 % Normal 0.2-2.0 [facility] Comment on above: Performed By: #### M G, CMP #### [facility] [address] [place] [address] Dr. Deepak Greenfield EO # 0.2 103/ul Normal 0.0-0.7 [facility] Comment on above: Performed By: #### M G, CMP #### [facility] [address] [place] [address] Dr. Deepak Greenfield Eosinophils/100 WBC (Bld) 2.1 % Normal 0.9-7.0 [facility] Comment on above: Performed By: #### M G, CMP #### [facility] [address] [place] [address] Dr. Deepak Greenfield Erythrocyte distribution width (RBC) [Ratio] 13.2 % Normal 11.0-15.0 [facility] Comment on above: Performed By: #### M G, CMP #### [facility] [address] [place] [address] Dr. Deepak Greenfield Hematocrit (Bld) [Volume fraction] 36.7 % Critically low 42.0-54.0 [facility] Comment on above: Performed By: #### M G, CMP #### [facility] [address] [place] [address] Dr. Deepak Greenfield Hemoglobin (Bld) [Mass/Vol] 12.4 g/dL Critically low 14.0-18.0 [facility] Comment on above: Performed By: #### M G, CMP #### [facility] [address] [place] [address] Dr. Deepak Greenfield IG # 0.04 10e3/ul Critically high 0.00-0.03 [facility] Comment on above: Performed By: #### M G, CMP #### [facility] [address] [place] [address] Dr. Deepak Greenfield IG % 0.4 % Normal 0.0-0.5 [facility] Comment on above: Performed By: #### M G, CMP #### [facility] [address] [place] [address] Dr. Deepak Greenfield LYMPH # 1.7 103/ul Normal 1.2-3.8 [facility] Comment on above: Performed By: #### M G, CMP #### [facility] [address] [place] [address] Dr. Deepak Greenfield Lymphocytes/100 WBC (Bld) 15.6 % Critically low 20.5-60.0 [facility] Comment on above: Performed By: #### M G, CMP #### [facility] [address] [place] [address] Dr. Deepak Greenfield MANUAL DIFF REQ NO Normal [facility] Comment on above: Performed By: #### M G, CMP #### [facility] [address] [place] [address] Dr. Deepak Greenfield MCH (RBC) [Entitic mass] 32.5 pg Normal 25.9-34.0 [facility] Comment on above: Performed By: #### M G, CMP #### [facility] [address] [place] [address] Dr. Deepak Greenfield MCHC (RBC) [Mass/Vol] 33.8 g/dL Normal 29.9-35.2 [facility] Comment on above: Performed By: #### M G, CMP #### [facility] [address] [place] [address] Dr. Deepak Greenfield MCV (RBC) [Entitic vol] 96.3 fL Critically high 80.0-94.0 [facility] Comment on above: Performed By: #### M G, CMP #### [facility] [address] [place] [address] Dr. Deepak Greenfield MONO # 1.4 103/ul Critically high 0.3-0.8 [facility] Comment on above: Performed By: #### M G, CMP #### [facility] [address] [place] [address] Dr. Deepak Greenfield Monocytes/100 WBC (Bld) 12.8 % Critically high 1.7-12.0 [facility] Comment on above: Performed By: #### M G, CMP #### [facility] [address] [place] [address] Dr. Deepak Greenfield NEUT # 7.4 103/ul Critically high 1.4-6.5 [facility] Comment on above: Performed By: #### M G, CMP #### [facility] [address] [place] [address] Dr. Deepak Greenfield Neutrophils/100 WBC (Bld) 68.6 % Normal 43.0-75.0 [facility] Comment on above: Performed By: #### M G, CMP #### [facility] [address] [place] [address] Dr. Deepak Greenfield Platelet mean volume (Bld) [Entitic vol] 9.5 fL Normal 9.5-13.5 [facility] Comment on above: Performed By: #### M G, CMP #### [facility] [address] [address] [address] Deepak Greenfield PLT 314 103/ul Normal 150-450 [facility] Comment on above: Performed By: #### M G, CMP #### [facility] [address] [address] [address] Deepak Greenfield RBC 3.81 106/ul Critically low 4.70-6.10 [facility] Comment on above: Performed By: #### M G, CMP #### [facility] [address] [address] [address] Deepak Greenfield WBC 10.8 103/ul Normal 4.0-11.0 [facility] Comment on above: Performed By: #### M G, CMP #### [facility] [address] [address] [address] Deepak Greenfield Covid-19 PCR (CVDTB)on SARS-CoV-2 (COVID-19) RNA CINDY+probe Ql (Unsp spec) Not detected Normal NOT DETECTED [facility] Comment on above: Result Comment: When [...] for this test is supported by the [place] of Health and Human Service's declaration that [...] used). Performed By: #### C VDTBH #### [facility] [address] [place] [address] Dr. Deepak Greenfield INFLUENZA A AND B AGon 07-26 INFLUANEGH SEE BELOW Normal [facility] Comment on above: Result Comment: Nega tive for Flu A protein angiten. Infection due to Flu A cannot be ruled out. Flu A angiten in the sample may be below the detection limit of the test. Performed By: #### I NFLUAB #### [facility] [address] [place] [address] Dr. Deepak Greenfield INFLUBANNER SEE BELOW [facility] Comment on above: Result Comment: Nega tive for Flu B protein antigen. Infection due to Flu B cannot be ruled out. Flu B antigen in the sample may be below the detection limit of the test. Performed By: #### I NFLUAB #### [facility] [address] [place] [address] Dr. Deepak Greenfield INFLUENZA A AG Negative Normal NEGATIVE SEE COMMENT [facility] Comment on above: Performed By: #### I NFLUAB #### [facility] [address] [place] [address] Dr. Deepak Greenfield INFLUENZA B AG Negative Normal NEGATIVE SEE COMMENT [facility] Comment on above: Performed By: #### I NFLUAB #### [facility] [address] [place] [address] Dr. Deepak Greenfield LACTATE/LACTIC ACIDon 2022 Lactate [Moles/Vol] 1.2 mmol/L Normal 0.4-2.0 [facility] Comment on above: Performed By: #### M G, CMP #### [facility] [address] [place] [address] Dr. Deepak Greenfield PROF 14(COMP METB)on 023 Albumin [Mass/Vol] 3.3 g/dL Critically low 3.4-5.0 [facility] Comment on above: Performed By: #### B MP #### [facility] [address] [place] [address] Dr. Deepak Greenfield Albumin/Globulin [Mass ratio] 0.8 {ratio} Normal [facility] Comment on above: Performed By: #### B MP #### [facility] [address] [place] [address] Dr. Deepak Greenfield ALP [Catalytic activity/Vol] 45 U/L Critically low 46-116 [facility] Comment on above: Performed By: #### B MP #### [facility] [address] [address] [address] Deepak Greenfield ALT [Catalytic activity/Vol] 114 U/L Critically high 16-63 [facility] Comment on above: Performed By: #### B MP #### [facility] [address] [address] [address] Deepak Greenfield Anion gap [Moles/Vol] 14.5 mmol/L Normal [facility] Comment on above: Performed By: #### B MP #### [facility] [address] [address] [address] Deepak Greenfield AST [Catalytic activity/Vol] 71 U/L Critically high 15-37 [facility] Comment on above: Performed By: #### B MP #### [facility] [address] [address] [address] Deepak Greenfield Bilirubin [Mass/Vol] 0.7 mg/dL Normal 0.2-1.0 [facility] Comment on above: Performed By: #### B MP #### [facility] [address] [address] [address] Deepak Greenfield Calcium [Mass/Vol] 9.1 mg/dL Normal 8.5-10.[address] [facility] Comment on above: Performed By: #### B MP #### [facility] [address] [address] [address] Deepak Greenfield Chloride [Moles/Vol] 98 mmol/L Normal 98-107 [facility] Comment on above: Performed By: #### B MP #### [facility] [address] [address] [address] Deepak Greenfield CO2 [Moles/Vol] 27.4 mmol/L Normal 21.0-32.0 [facility] Comment on above: Performed By: #### B MP #### [facility] [address] [address] [address] Deepak Greenfield Creatinine [Mass/Vol] 0.65 mg/dL Critically low 0.70-1.30 [facility] Comment on above: Performed By: #### B MP #### [facility] [address] [address] [address] Deepak Greenfield EGFR-AF NAMIBIAN >60 Normal >=60 [facility] Comment on above: Performed By: #### B MP #### [facility] [address] [address] [address] Deepak Greenfield EGFR-NON AF NAMIBIAN >60 Normal >=60 [facility] Comment on above: Performed By: #### B MP #### [facility] [address] [address] [address] Deepak Greenfield Globulin (S) [Mass/Vol] 4.2 g/dL Normal [facility] Comment on above: Performed By: #### B MP #### [facility] [address] [place] [address] Dr. Deepak Greenfield Glucose [Mass/Vol] 105 mg/dL Normal 74-106 [facility] Comment on above: Performed By: #### B MP #### [facility] [address] [address] [address] Deepak Greenfield Potassium [Moles/Vol] 3.9 mmol/L Normal 3.5-5.1 [facility] Comment on above: Performed By: #### B MP #### [facility] [address] [place] [address] Dr. Deepak Greenfield Protein [Mass/Vol] 7.5 g/dL Normal 6.4-8.2 [facility] Comment on above: Performed By: #### B MP #### [facility] [address] [place] [address] Dr. Deepak Greenfield Sodium [Moles/Vol] 136 mmol/L Normal 136-145 [facility] Comment on above: Performed By: #### B MP #### [facility] [address] [address] [address] Deepak Greenfield Urea nitrogen [Mass/Vol] 13.0 mg/dL Normal 7.0-18.0 [facility] Comment on above: Performed By: #### B MP #### [facility] [address] [address] [address] Deepak Greenfield Urea nitrogen/Creatinine [Mass ratio] 20.0 mg/mg Normal [facility] Comment on above: Performed By: #### B #### [facility] [address] [id number] Deepak Greenfield XR CHEST 1 Von [...] by: ANICETO GARCIA Date: 2022-07-26 12:27 Normal [facility] Consent for Treatmenton Consent for Treatment [id number] .[id number]:127 Normal [facility] Physician Orderon 07-23-2022 Physician Order [id number] 1.00CD:127 Normal [facility] XR Adult Swallowing Function w/ Videoon 07-23-2022 [...] 11.70 DAP = 270.92 Normal [facility] AMMONIAon 06-03-2022 Ammonia (P) [Moles/Vol] 112 umol/L Critically high 11-32 [facility] Comment on above: Performed By: #### A MM #### [facility] [address] [place] [address] Dr. Deepak Greenfield DEPAKENE/ VALPROIC ACIDon DEPAKENE 94.0 ug/ml Normal 50.0-100.0 [facility] Comment on above: Performed By: #### C BC #### [facility] [address] [place] [address] Dr. Deepak Greenfield LIVER PROFILEon 06-03-2022 Albumin [Mass/Vol] 3.6 g/dL Normal 3.4-5.[address] [facility] Comment on above: Performed By: #### C BC #### [facility] [address] [place] [address] Dr. Deepak Greenfield Albumin/Globulin [Mass ratio] 0.9 {ratio} Normal [facility] Comment on above: Performed By: #### C BC #### [facility] [address] [place] [address] Dr. Deepak Greenfield ALP [Catalytic activity/Vol] 55 U/L Normal 46-116 [facility] Comment on above: Performed By: #### C BC #### [facility] [address] [place] [address] Dr. Deepak Greenfield ALT [Catalytic activity/Vol] 76 U/L Critically high 16-63 [facility] Comment on above: Performed By: #### C BC #### [facility] [address] [place] [address] Dr. Deepak Greenfield AST [Catalytic activity/Vol] 51 U/L Critically high 15-37 [facility] Comment on above: Performed By: #### C BC #### [facility] [address] [place] [address] Dr. Deepak Greenfield BILI, CONJUGATED 0.1 mg/dL Normal 0.0-0.2 [facility] Comment on above: Performed By: #### C BC #### [facility] [address] [place] [address] Dr. Deepak Greenfield Bilirubin [Mass/Vol] 0.4 mg/dL Normal 0.2-1.0 [facility] Comment on above: Performed By: #### C BC #### [facility] [address] [place] [address] Dr. Deepak Greenfield Globulin (S) [Mass/Vol] 4.1 g/dL Normal [facility] Comment on above: Performed By: #### C BC #### [facility] [address] [place] [address] Dr. Deepak Greenfield Protein [Mass/Vol] 7.7 g/dL Normal 6.4-8.[address] [facility] Comment on above: Performed By: #### C BC #### [facility] [address] [place] [address] Dr. Deepak Greenfield AMMONIAon 04-22-2022 Ammonia (P) [Moles/Vol] 108 umol/L Critically high 11-32 [facility] Comment on above: Performed By: #### B MP #### [facility] [address] [place] [address] Dr. Deepak Greenfield CBC AUTO DIFFon 04-22-2022 BASO # 0.0 103/ul Normal 0.0-0.1 [facility] Comment on above: Performed By: #### C BC #### [facility] [address] [place] [address] Dr. Deepak Greenfield Basophils/100 WBC (Bld) 0.5 % Normal 0.2-2.0 [facility] Comment on above: Performed By: #### C BC #### [facility] [address] [place] [address] Dr. Deepak Greenfield EO # 0.1 103/ul Normal 0.0-0.7 [facility] Comment on above: Performed By: #### C BC #### [facility] [address] [place] [address] Dr. Deepak Greenfield Eosinophils/100 WBC (Bld) 1.4 % Normal 0.9-7.0 [facility] Comment on above: Performed By: #### C BC #### [facility] [address] [place] [address] Dr. Deepak Greenfield Erythrocyte distribution width (RBC) [Ratio] 14.2 % Normal 11.0-15.0 [facility] Comment on above: Performed By: #### C BC #### [facility] [address] [place] [address] Dr. Deepak Greenfield Hematocrit (Bld) [Volume fraction] 37.0 % Critically low 42.0-54.0 [facility] Comment on above: Performed By: #### C BC #### [facility] [address] [place] [address] Dr. Deepak Greenfield Hemoglobin (Bld) [Mass/Vol] 12.3 g/dL Critically low 14.0-18.0 [facility] Comment on above: Performed By: #### C BC #### [facility] [address] [place] [address] Dr. Deepak Greenfield IG # 0.00 10e3/ul Normal 0.00-0.03 [facility] Comment on above: Performed By: #### C BC #### [facility] [address] [place] [address] Dr. Deepak Greenfield IG % 0.0 % Normal 0.0-0.5 [facility] Comment on above: Performed By: #### C BC #### [facility] [address] [place] [address] Dr. Deepak Greenfield LYMPH # 3.3 103/ul Normal 1.2-3.8 [facility] Comment on above: Performed By: #### C BC #### [facility] [address] [place] [address] Dr. Deepak Greenfield Lymphocytes/100 WBC (Bld) 51.5 % Normal 20.5-60.0 [facility] Comment on above: Performed By: #### C BC #### [facility] [address] [place] [address] Dr. Deepak Greenfield MANUAL DIFF REQ NO Normal [facility] Comment on above: Performed By: #### C BC #### [facility] [address] [place] [address] Dr. Deepak Greenfield MCH (RBC) [Entitic mass] 32.2 pg Normal 25.9-34.0 [facility] Comment on above: Performed By: #### C BC #### [facility] [address] [place] [address] Dr. Deepak Greenfield MCHC (RBC) [Mass/Vol] 33.2 g/dL Normal 29.9-35.2 [facility] Comment on above: Performed By: #### C BC #### [facility] [address] [place] [address] Dr. Deepak Greenfield MCV (RBC) [Entitic vol] 96.9 fL Critically high 80.0-94.0 [facility] Comment on above: Performed By: #### C BC #### [facility] [address] [place] [address] Dr. Deepak Greenfield MONO # 0.6 103/ul Normal 0.3-0.8 [facility] Comment on above: Performed By: #### C BC #### [facility] [address] [place] [address] Dr. Deepak [place] Monocytes/100 WBC (Bld) 9.7 % Normal 1.7-12.0 [facility] Comment on above: Performed By: #### C BC #### [facility] [address] [place] [address] Dr. Deepak [place] NEUT # 2.4 103/ul Normal 1.4-6.5 [facility] Comment on above: Performed By: #### C BC #### [facility] [address] [place] [address] Dr. Deepak [place]field Neutrophils/100 WBC (Bld) 36.9 % Critically low 43.0-75.0 [facility] Comment on above: Performed By: #### C BC #### [facility] [address] [place] [address] Dr. Deepak [place] Platelet mean volume (Bld) [Entitic vol] 10.2 fL Normal 9.5-13.5 [facility] Comment on above: Performed By: #### C BC #### [facility] [address] [place] [address] Dr. Deepak Greenfield PLT 248 103/ul Normal 150-450 [facility] Comment on above: Performed By: #### C BC #### [facility] [address] [place] [address] Dr. Deepak Greenfield RBC 3.82 106/ul Critically low 4.70-6.10 [facility] Comment on above: Performed By: #### C BC #### [facility] [address] [place] [address] Dr. Deepak [place]field WBC 6.5 103/ul Normal 4.0-11.0 [facility] Comment on above: Performed By: #### C BC #### [facility] [address] [place] [address] Dr. Deepak [place]field FERRITINon 04-22-2022 Ferritin [Mass/Vol] 152.0 ng/mL Normal 26.0-388.0 [facility] Comment on above: Performed By: #### M G, CMP #### [facility] [address] [place] [address] Dr. Deepak [place]field IRONon 04-22-2022 Iron [Mass/Vol] 136.0 ug/dL Normal 65.0-175.0 [facility] Comment on above: Performed By: #### M G, CMP #### [facility] [address] [place] [address] Dr. Deepak [place]field MAGNESIUMon 04-22-2022 Magnesium [Mass/Vol] 1.6 mg/dL Critically low 1.8-2.4 [facility] Comment on above: Performed By: #### I NFLUAB #### [facility] [address] [place] [address] Dr. Deepak [place]field VITAMIN B12on 04-22-2022 Cobalamin (Vitamin B12) [Mass/Vol] 545.0 pg/mL Normal 193.0-986.0 [facility] Comment on above: Performed By: #### M G, CMP #### [facility] [address] [place] [address] Dr. Deepak Greenfield CBC AUTO DIFFon 03-19-2022 BASO # 0.0 103/ul Normal 0.0-0.1 [facility] Comment on above: Performed By: #### M G, CMP #### [facility] [address] [place] [address] Dr. Deepak [place]field Basophils/100 WBC (Bld) 0.5 % Normal 0.2-2.0 [facility] Comment on above: Performed By: #### M G, CMP #### [facility] [address] [place] [address] Dr. Deepak Greenfield EO # 0.2 103/ul Normal 0.0-0.7 [facility] Comment on above: Performed By: #### M G, CMP #### [facility] [address] [place] [address] Dr. Deepak Greenfield Eosinophils/100 WBC (Bld) 2.0 % Normal 0.9-7.0 [facility] Comment on above: Performed By: #### M G, CMP #### [facility] [address] [place] [address] Dr. Deepak [place]field Erythrocyte distribution width (RBC) [Ratio] 13.5 % Normal 11.0-15.0 [facility] Comment on above: Performed By: #### M G, CMP #### [facility] [address] [place] [address] Dr. Deepak Greenfield Hematocrit (Bld) [Volume fraction] 38.5 % Critically low 42.0-54.0 [facility] Comment on above: Performed By: #### M G, CMP #### [facility] [address] [place] [address] Dr. Deepak [place] Hemoglobin (Bld) [Mass/Vol] 12.6 g/dL Critically low 14.0-18.0 [facility] Comment on above: Performed By: #### M G, CMP #### [facility] [address] [place] [address] Dr. Deepak Greenfield IG # 0.02 10e3/ul Normal 0.00-0.03 [facility] Comment on above: Performed By: #### M G, CMP #### [facility] [address] [place] [address] Dr. Deepak Greenfield IG % 0.2 % Normal 0.0-0.5 [facility] Comment on above: Performed By: #### M G, CMP #### [facility] [address] [place] [address] Dr. Deepak Greenfield LYMPH # 3.1 103/ul Normal 1.2-3.8 [facility] Comment on above: Performed By: #### M G, CMP #### [facility] [address] [place] [address] Dr. Deepak Greenfield Lymphocytes/100 WBC (Bld) 36.2 % Normal 20.5-60.0 [facility] Comment on above: Performed By: #### M G, CMP #### [facility] [address] [place] [address] Dr. Deepak Greenfield MANUAL DIFF REQ NO Normal [facility] Comment on above: Performed By: #### M G, CMP #### [facility] [address] [place] [address] Dr. Deepak Greenfield MCH (RBC) [Entitic mass] 32.1 pg Normal 25.9-34.0 [facility] Comment on above: Performed By: #### M G, CMP #### [facility] [address] [place] [address] Dr. Deepak Greenfield MCHC (RBC) [Mass/Vol] 32.7 g/dL Normal 29.9-35.2 [facility] Comment on above: Performed By: #### M G, CMP #### [facility] [address] [place] [address] Dr. Deepak Greenfield MCV (RBC) [Entitic vol] 98.0 fL Critically high 80.0-94.0 [facility] Comment on above: Performed By: #### M G, CMP #### [facility] [address] [place] [address] Dr. Deepak Greenfield MONO # 0.9 103/ul Critically high 0.3-0.8 [facility] Comment on above: Performed By: #### M G, CMP #### [facility] [address] [place] [address] Dr. Deepak [place] Monocytes/100 WBC (Bld) 10.6 % Normal 1.7-12.0 [facility] Comment on above: Performed By: #### M G, CMP #### [facility] [address] [place] [address] Dr. Deepak Greenfield NEUT # 4.3 103/ul Normal 1.4-6.5 [facility] Comment on above: Performed By: #### M G, CMP #### [facility] [address] [place] [address] Dr. Deepak Greenfield Neutrophils/100 WBC (Bld) 50.5 % Normal 43.0-75.0 [facility] Comment on above: Performed By: #### M G, CMP #### [facility] [address] [place] [address] Dr. Deepak Greenfield Platelet mean volume (Bld) [Entitic vol] 9.9 fL Normal 9.5-13.5 [facility] Comment on above: Performed By: #### M G, CMP #### [facility] [address] [place] [address] Dr. Deepak Greenfield PLT 263 103/ul Normal 150-450 [facility] Comment on above: Performed By: #### M G, CMP #### [facility] [address] [place] [address] Dr. Deepak Greenfield RBC 3.93 106/ul Critically low 4.70-6.10 [facility] Comment on above: Performed By: #### M G, CMP #### [facility] [address] [place] [address] Dr. Deepak Greenfield WBC 8.6 103/ul Normal 4.0-11.0 [facility] Comment on above: Performed By: #### M G, CMP #### [facility] [address] [place] [address] Dr. Deepak Greenfield MAGNESIUMon 03-19-2022 Magnesium [Mass/Vol] 1.5 mg/dL Critically low 1.8-2.4 [facility] Comment on above: Performed By: #### M G, CMP #### [facility] [address] [place] [address] Dr. Deepak Greenfield PROF 14(COMP METB)on 022 Albumin [Mass/Vol] 3.4 g/dL Normal 3.4-5.[address] [facility] Comment on above: Performed By: #### Karishma House, CMP #### [facility] [address] [place] [address] Dr. Deepak Greenfield Albumin/Globulin [Mass ratio] 0.9 {ratio} Normal [facility] Comment on above: Performed By: #### M G, CMP #### [facility] [address] [place] [address] Dr. Deepak Greenfield ALP [Catalytic activity/Vol] 47 U/L Normal 46-116 [facility] Comment on above: Performed By: #### M G, CMP #### [facility] [address] [place] [address] Dr. Deepak Greenfield ALT [Catalytic activity/Vol] 48 U/L Normal 16-63 [facility] Comment on above: Performed By: #### Karishma G, CMP #### [facility] [address] [place] [address] Dr. Deepak Greenfield Anion gap [Moles/Vol] 9.5 mmol/L Normal [facility] Comment on above: Performed By: #### M G, CMP #### [facility] [address] [place] [address] Dr. Deepak Greenfield AST [Catalytic activity/Vol] 30 U/L Normal 15-37 [facility] Comment on above: Performed By: #### M G, CMP #### [facility] [address] [place] [address] Dr. Deepak Greenfield Bilirubin [Mass/Vol] 0.2 mg/dL Normal 0.2-1.0 [facility] Comment on above: Performed By: #### M G, CMP #### [facility] [address] [place] [address] Dr. Deepak Greenfield Calcium [Mass/Vol] 8.7 mg/dL Normal 8.5-10.[address] [facility] Comment on above: Performed By: #### M G, CMP #### [facility] [address] [place] [address] Dr. Deepak Greenfield Chloride [Moles/Vol] 105 mmol/L Normal 98-107 [facility] Comment on above: Performed By: #### M G, CMP #### [facility] [address] [place] [address] Dr. Deepak Greenfield CO2 [Moles/Vol] 32.6 mmol/L Critically high 21.0-32.0 [facility] Comment on above: Performed By: #### M G, CMP #### [facility] [address] [place] [address] Dr. Deepak Greenfield Creatinine [Mass/Vol] 0.70 mg/dL Normal 0.70-1.30 [facility] Comment on above: Performed By: #### M G, CMP #### [facility] [address] [place] [address] Dr. Deepak Greenfield EGFR-AF NAMIBIAN >60 Normal >=60 [facility] Comment on above: Performed By: #### M G, CMP #### [facility] [address] [place] [address] Dr. Deepak Greenfield EGFR-NON AF NAMIBIAN >60 Normal >=60 [facility] Comment on above: Performed By: #### M G, CMP #### [facility] [address] [place] [address] Dr. Deepak Greenfield Globulin (S) [Mass/Vol] 3.8 g/dL Normal [facility] Comment on above: Performed By: #### M G, CMP #### [facility] [address] [place] [address] Dr. Deepak Greenfield Glucose [Mass/Vol] 98 mg/dL Normal 74-106 [facility] Comment on above: Performed By: #### M G, CMP #### [facility] [address] [address] [address] Deepak Greenfield Potassium [Moles/Vol] 4.1 mmol/L Normal 3.5-5.1 [facility] Comment on above: Performed By: #### M G, CMP #### [facility] [address] [place] [address] Dr. Deepak Greenfield Protein [Mass/Vol] 7.2 g/dL Normal 6.4-8.2 [facility] Comment on above: Performed By: #### M G, CMP #### [facility] [address] [place] [address] Dr. Deepak Greenfield Sodium [Moles/Vol] 143 mmol/L Normal 136-[address] [facility] Comment on above: Performed By: #### Karishma G, CMP #### [facility] [address] [place] [address] Dr. Deepak Greenfield Urea nitrogen [Mass/Vol] 10.0 mg/dL Normal 7.0-18.0 [facility] Comment on above: Performed By: #### Karishma G, CMP #### [facility] [address] [place] [address] Dr. Deepak Greenfield Urea nitrogen/Creatinine [Mass ratio] 14.3 mg/mg Normal [facility] Comment on above: Performed By: #### M G, CMP #### [facility] [address] [place] [address] Dr. Deepak Greenfield VITAMIN D 25 OHon 03-19-2022 VIT D 25-OH 67.5 ng/mL Normal [facility] Comment on above: Performed By: #### M G, CMP #### [facility] [address] [place] [address] Dr. Deepak Greenfield VIT D RANGES SEE BELOW Normal [facility] Comment on above: Result Comment: <20 ng/mL Vit D deficient 20 - <30 ng/mL Vit D insufficient 30 - 100 ng/mL Vit D sufficient >100 ng/mL Potential Toxicity Performed By: #### M G, CMP #### [facility] [address] [place] [address] Dr. Deepak Greenfield AMMONIAon 03-10-2022 Ammonia (P) [Moles/Vol] 36 umol/L Critically high [facility] Comment on above: Performed By: #### C BC #### [facility] [address] [place] [address] Dr. Deepak Greenfield DEPAKENE/ VALPROIC ACIDon DEPAKENE 93.5 ug/ml Normal 50.0-100.0 [facility] Comment on above: Performed By: #### B MP #### [facility] [address] [place] [address] Dr. Deepak Greenfield BNPon 01-24-2022 Natriuretic peptide B (Bld) [Mass/Vol] 183.0 pg/mL Normal <=450.0 [facility] Comment on above: Performed By: #### M Lacy, CMP #### [facility] [address] [place] [address] Dr. Deepak Greenfield CBC AUTO DIFFon 01-24-2022 BASO # 0.0 103/ul Normal 0.0-0.1 [facility] Comment on above: Performed By: #### C VDTB #### [facility] [address] [place] [address] Dr. Deepak Greenfield Basophils/100 WBC (Bld) 0.3 % Normal 0.2-2.0 [facility] Comment on above: Performed By: #### C VDTBH #### [facility] [address] [place] [address] Dr. Deepak Greenfield EO # 0.1 103/ul Normal 0.0-0.7 [facility] Comment on above: Performed By: #### C VDTBH #### [facility] [address] [place] [address] Dr. Deepak Greenfield Eosinophils/100 WBC (Bld) 0.4 % Critically low 0.9-7.0 [facility] Comment on above: Performed By: #### C VDTBH #### [facility] [address] [place] [address] Dr. Deepak Greenfield Erythrocyte distribution width (RBC) [Ratio] 13.6 % Normal 11.0-15.0 [facility] Comment on above: Performed By: #### C VDTBH #### [facility] [address] [place] [address] Dr. Deepak Greenfield Hematocrit (Bld) [Volume fraction] 39.3 % Critically low 42.0-54.0 [facility] Comment on above: Performed By: #### C VDTBH #### [facility] [address] [place] [address] Dr. Deepak Greenfield Hemoglobin (Bld) [Mass/Vol] 12.6 g/dL Critically low 14.0-18.0 [facility] Comment on above: Performed By: #### C VDTBH #### [facility] [address] [place] [address] Dr. Deepak Greenfield IG # 0.04 10e3/ul Critically high 0.00-0.03 [facility] Comment on above: Performed By: #### C VDTBH #### [facility] [address] [place] [address] Dr. Deepak Greenfield IG % 0.3 % Normal 0.0-0.5 [facility] Comment on above: Performed By: #### C VDTBH #### [facility] [address] [place] [address] Dr. Deepak Greenfield LYMPH # 2.4 103/ul Normal 1.2-3.8 [facility] Comment on above: Performed By: #### C VDTBH #### [facility] [address] [place] [address] Dr. Deepak Greenfield Lymphocytes/100 WBC (Bld) 16.6 % Critically low 20.5-60.0 [facility] Comment on above: Performed By: #### C VDTBH #### [facility] [address] [place] [address] Dr. Deepak Greenfield MANUAL DIFF REQ NO Normal [facility] Comment on above: Performed By: #### C VDTBH #### [facility] [address] [place] [address] Dr. Deepak Greenfield MCH (RBC) [Entitic mass] 32.0 pg Normal 25.9-34.0 [facility] Comment on above: Performed By: #### C VDTBH #### [facility] [address] [place] [address] Dr. Deepak Greenfield MCHC (RBC) [Mass/Vol] 32.1 g/dL Normal 29.9-35.2 [facility] Comment on above: Performed By: #### C VDTBH #### [facility] [address] [place] [address] Dr. Deepak Greenfield MCV (RBC) [Entitic vol] 99.7 fL Critically high 80.0-94.0 [facility] Comment on above: Performed By: #### C VDTBH #### [facility] [address] [place] [address] Dr. Deepak Greenfield MONO # 1.4 103/ul Critically high 0.3-0.8 [facility] Comment on above: Performed By: #### C VDTBH #### [facility] [address] [place] [address] Dr. Deepak Greenfield Monocytes/100 WBC (Bld) 9.8 % Normal 1.7-12.0 [facility] Comment on above: Performed By: #### C VDTBH #### [facility] [address] [place] [address] Dr. Deepak Greenfield NEUT # 10.7 103/ul Critically high 1.4-6.5 [facility] Comment on above: Performed By: #### C VDTBH #### [facility] [address] [place] [address] Dr. Deepak Greenfield Neutrophils/100 WBC (Bld) 72.6 % Normal 43.0-75.0 [facility] Comment on above: Performed By: #### C VDTBH #### [facility] [address] [place] [address] Dr. Deepak Greenfield Platelet mean volume (Bld) [Entitic vol] 10.4 fL Normal 9.5-13.5 [facility] Comment on above: Performed By: #### C VDTBH #### [facility] [address] [place] [address] Dr. Deepak Greenfield PLT 280 103/ul Normal 150-450 [facility] Comment on above: Performed By: #### C VDTBH #### [facility] [address] [place] [address] Dr. Deepak Greenfield RBC 3.94 106/ul Critically low 4.70-6.10 [facility] Comment on above: Performed By: #### C VDTBH #### [facility] [address] [place] [address] Dr. Deepak Greenfield WBC 14.7 103/ul Critically high 4.0-11.0 [facility] Comment on above: Performed By: #### C VDTBH #### [facility] [address] [place] [address] Dr. Deepak Greenfield CULTURE BLOODon 01-24-2022 Microscopic examination of blood, culture Culture Observations: No growth at 5 days. Normal [facility] Comment on above: Performed By: #### C BC #### [facility] [address] [place] [address] Dr. Deepak Greenfield Microscopic examination of blood, culture Culture Observations: No growth at 5 days. Normal [facility] Comment on above: Performed By: #### C BC #### [facility] [address] [place] [address] Dr. Deepak Greenfield Covid-19 PCR ([facility])on SARS-CoV-2 (COVID-19) RNA CINDY+probe Ql (Unsp spec) Not detected Normal NOT DETECTED [facility] Comment on above: Result Comment: When [...] for this test is supported by the [place] of Health and Human Service's declaration that [...] used). Performed By: #### I NFLUAB #### [facility] [address] [place] [address] Dr. Deepak Greenfield LACTATE/LACTIC ACIDon 2021 Lactate [Moles/Vol] 1.7 mmol/L Normal 0.4-1.9 [facility] Comment on above: Performed By: #### M G, CMP #### [facility] [address] [place] [address] Dr. Deepak Greenfield PROF 14(COMP METB)on 022 Albumin [Mass/Vol] 3.2 g/dL Critically low 3.4-5.0 [facility] Comment on above: Performed By: #### M G, CMP #### [facility] [address] [place] [address] Dr. Deepak Greenfield Albumin/Globulin [Mass ratio] 0.7 {ratio} Normal [facility] Comment on above: Performed By: #### M G, CMP #### [facility] [address] [place] [address] Dr. Deepak Greenfield ALP [Catalytic activity/Vol] 49 U/L Normal 46-116 [facility] Comment on above: Performed By: #### M G, CMP #### [facility] [address] [place] [address] Dr. Deepak Greenfield ALT [Catalytic activity/Vol] 41 U/L Normal 16-63 [facility] Comment on above: Performed By: #### M G, CMP #### [facility] [address] [place] [address] Dr. Deepak Greenfield Anion gap [Moles/Vol] 11.1 mmol/L Normal [facility] Comment on above: Performed By: #### M G, CMP #### [facility] [address] [address] [address] Deepak Greenfield AST [Catalytic activity/Vol] 29 U/L Normal 15-37 [facility] Comment on above: Performed By: #### M G, CMP #### [facility] [address] [address] [address] Deepak Greenfield Bilirubin [Mass/Vol] 0.5 mg/dL Normal 0.2-1.0 [facility] Comment on above: Performed By: #### M G, CMP #### [facility] [address] [address] [address] Deepak Greenfield Calcium [Mass/Vol] 9.1 mg/dL Normal 8.5-10.[address] [facility] Comment on above: Performed By: #### M G, CMP #### [facility] [address] [place] [address] Dr. Deepak Greenfield Chloride [Moles/Vol] 108 mmol/L Critically high 98-107 [facility] Comment on above: Performed By: #### M G, CMP #### [facility] [address] [address] [address] Deepak Greenfield CO2 [Moles/Vol] 25.7 mmol/L Normal 21.0-32.0 [facility] Comment on above: Performed By: #### M G, CMP #### [facility] [address] [address] [address] Deepak Greenfield Creatinine [Mass/Vol] 0.89 mg/dL Normal 0.70-1.30 [facility] Comment on above: Performed By: #### M G, CMP #### [facility] [address] [place] [address] Dr. Deepak Greenfield EGFR-AF NAMIBIAN >60 Normal >=60 [facility] Comment on above: Performed By: #### M G, CMP #### [facility] [address] [place] [address] Dr. Deepak Greenfield EGFR-NON AF NAMIBIAN >60 Normal >=60 [facility] Comment on above: Performed By: #### M G, CMP #### [facility] [address] [address] [address] Deepak Greenfield Globulin (S) [Mass/Vol] 4.5 g/dL Normal [facility] Comment on above: Performed By: #### M G, CMP #### [facility] [address] [address] [address] Deepak Greenfield Glucose [Mass/Vol] 178 mg/dL Critically high 74-106 [facility] Comment on above: Performed By: #### M G, CMP #### [facility] [address] [address] [address] Deepak Greenfield Potassium [Moles/Vol] 3.8 mmol/L Normal 3.5-5.1 [facility] Comment on above: Performed By: #### M G, CMP #### [facility] [address] [place] [address] Dr. Deepak Greenfield Protein [Mass/Vol] 7.7 g/dL Normal 6.4-8.[address] [facility] Comment on above: Performed By: #### M G, CMP #### [facility] [address] [address] [address] Deepak Greenfield Sodium [Moles/Vol] 141 mmol/L Normal 136-[address] [facility] Comment on above: Performed By: #### M G, CMP #### [facility] [address] [address] [address] Deepak Greenfield Urea nitrogen [Mass/Vol] 16.0 mg/dL Normal 7.0-18.0 [facility] Comment on above: Performed By: #### M G, CMP #### [facility] [address] [address] [address] Deepak Greenfield Urea nitrogen/Creatinine [Mass ratio] 18.0 mg/mg Normal [facility] Comment on above: Performed By: #### M G, CMP #### [facility] [address] [place] [address] Dr. Deepak Greenfield TROPONIN, HIGH SENSITIVITYon 01-24-2022 HSTROP 6.4 pg/mL Normal 4.0-76.1 [facility] Comment on above: Result Comment: CUT- OFF POINTS HAVE BEEN ESTABLISHED BASED ON THE FOURTH UNIVERSAL DEFINITIONS OF MYOCARDIAL INFARCTION. THE UPPER REFERENCE LIMIT (URL) OF TROPONIN, DEFINED THE 99TH PERCENTILE OF cTnI DISTRIBUTION IN A REFERENCE POPULATION, HAS BEEN CONFIRMED THE DECISION THRESHOLD FOR IA DIAGNOSIS. Performed By: #### M G, CMP #### [facility] [address] [place] [address] Dr. Deepak Greenfield XR CHEST 1 Von [...] ANICETO CROCKER Date: 2022-01-24 15:28 Normal [facility] UA RANDOM W/MICROSCOPICon BACTERIA NONE SEEN Normal NONE SEEN [facility] Comment on above: Performed By: #### C VDTBH #### [facility] [address] [place] [address] Dr. Deepak Greenfield Bilirubin Ql (U) Negative Normal NEGATIVE [facility] Comment on above: Performed By: #### C VDTBH #### [facility] [address] [place] [address] Dr. Deepak Greenfield CAST NONE SEEN Normal NONE SEEN [facility] Comment on above: Performed By: #### C VDTBH #### [facility] [address] [place] [address] Dr. Deepak Greenfield Clarity (U) CLEAR Normal CLEAR [facility] Comment on above: Performed By: #### C VDTBH #### [facility] [address] [place] [address] Dr. Deepak Greenfield Color (U) YELLOW Normal YELLOW [facility] Comment on above: Performed By: #### C VDTBH #### [facility] [address] [place] [address] Dr. Deepak Greenfield Crystals LM Nom (Urine sed) NONE SEEN Normal NONE SEEN [facility] Comment on above: Performed By: #### C VDTBH #### [facility] [address] [address] [address] Deepak Greenfield Epithelial cells LM Ql (Urine sed) RARE Normal NONE SEEN /RARE [facility] Comment on above: Performed By: #### C VDTBH #### [facility] [address] [place] [address] Dr. Deepak Greenfield Glucose Ql (U) Negative Normal NEGATIVE [facility] Comment on above: Performed By: #### C VDTBH #### [facility] [address] [place] [address] Dr. Deepak Greenfield Hemoglobin Ql (U) Negative Normal NEGATIVE [facility] Comment on above: Performed By: #### C VDTBH #### [facility] [address] [place] [address] Dr. Deepak Greenfield Ketones Ql (U) 15 mg/dl Abnormal NEGATIVE [facility] Comment on above: Performed By: #### C VDTBH #### [facility] [address] [place] [address] Dr. Deepak Greenfield LEUKOCYTES Negative Normal NEGATIVE [facility] Comment on above: Performed By: #### C VDTBH #### [facility] [address] [place] [address] Dr. Deepak Greenfield MUCOUS NONE SEEN Normal NONE SEEN [facility] Comment on above: Performed By: #### C VDTBH #### [facility] [address] [place] [address] Dr. Deepak Greenfield Nitrite Ql (U) Negative Normal NEGATIVE [facility] Comment on above: Performed By: #### C VDTBH #### [facility] [address] [place] [address] Dr. Deepak Greenfield pH (U) 6.0 [pH] Normal 5-9 [facility] Comment on above: Performed By: #### C VDTBH #### [facility] [address] [place] [address] Dr. Deepak Greenfield RBC 0-2 Normal 0-2 [facility] Comment on above: Performed By: #### C VDTBH #### [facility] [address] [place] [address] Dr. Deepak Greenfield SPEC GRAVITY 1.020 Normal 1.005-<=1.025 [facility] Comment on above: Performed By: #### C VDTBH #### [facility] [address] [place] [address] Dr. Deepak Greenfield UA PROTEIN Negative Normal NEGATIVE/ TRACE [facility] Comment on above: Performed By: #### C VDTBH #### [facility] [address] [place] [address] Dr. Deepak Greenfield Urobilinogen Qn (U) 0.2 {Ottoniel'U}/dL Normal 0.2 - 1. 0 [facility] Comment on above: Performed By: #### C VDTBH #### [facility] [address] [place] [address] Dr. Deepak Greenfield WBC NONE SEEN Normal NONE SEEN [facility] Comment on above: Performed By: #### C VDTBH #### [facility] [address] [place] [address] Dr. Deepak Greenfield ALBUMINon 01-12-2022 Albumin [Mass/Vol] 3.4 g/dL Normal 3.4-5.[address] [facility] Comment on above: Performed By: #### C VDTBH #### [facility] [address] [place] [address] Dr. Deepak Greenfield ALKALINE PHOSPHAon ALP [Catalytic activity/Vol] 46 U/L Normal 46-116 [facility] Comment on above: Performed By: #### C VDTBH #### [facility] [address] [place] [address] Dr. Deepak Greenfield AMMONIAon 01-12-2022 Ammonia (P) [Moles/Vol] 93 umol/L Critically high 11-32 [facility] Comment on above: Performed By: #### I NFLUAB #### [facility] [address] [place] [address] Dr. Deepak Greenfield BILIRUBIN CONJUGATED (DIRECT )on 01-12-2022 BILI, CONJUGATED 0.1 mg/dL Normal 0.0-0.2 [facility] Comment on above: Performed By: #### C VDTB #### [facility] [address] [place] [address] Dr. Deepak Greenfield BILIRUBIN TOTALon 01-12-2022 Bilirubin [Mass/Vol] 0.4 mg/dL Normal 0.2-1.0 [facility] Comment on above: Performed By: #### C VDTBH #### [facility] [address] [place] [address] Dr. Deepak Greenfield CBC AUTO DIFFon 01-12-2022 BASO # 0.0 103/ul Normal 0.0-0.1 [facility] Comment on above: Performed By: #### Karishma House, CMP #### [facility] [address] [place] [address] Dr. Deepak Greenfield Basophils/100 WBC (Bld) 0.3 % Normal 0.2-2.0 [facility] Comment on above: Performed By: #### Karishma House, CMP #### [facility] [address] [place] [address] Dr. Deepak Greenfield EO # 0.1 103/ul Normal 0.0-0.7 [facility] Comment on above: Performed By: #### Karishma House, CMP #### [facility] [address] [place] [address] Dr. Deepak Greenfield Eosinophils/100 WBC (Bld) 1.3 % Normal 0.9-7.0 [facility] Comment on above: Performed By: #### Karishma House, CMP #### [facility] [address] [place] [address] Dr. Deepak Greenfield Erythrocyte distribution width (RBC) [Ratio] 14.2 % Normal 11.0-15.0 [facility] Comment on above: Performed By: #### Karishma House, CMP #### [facility] [address] [place] [address] Dr. Deepak Greenfield Hematocrit (Bld) [Volume fraction] 40.4 % Critically low 42.0-54.0 [facility] Comment on above: Performed By: #### M Lacy, CMP #### [facility] [address] [place] [address] Dr. Deepak Greenfield Hemoglobin (Bld) [Mass/Vol] 13.1 g/dL Critically low 14.0-18.0 [facility] Comment on above: Performed By: #### M G, CMP #### [facility] [address] [place] [address] Dr. Deepak Greenfield IG # 0.01 10e3/ul Normal 0.00-0.03 [facility] Comment on above: Performed By: #### M G, CMP #### [facility] [address] [place] [address] Dr. Deepak Greenfield IG % 0.1 % Normal 0.0-0.5 [facility] Comment on above: Performed By: #### M G, CMP #### [facility] [address] [place] [address] Dr. Deepak Greenfield LYMPH # 3.3 103/ul Normal 1.2-3.8 [facility] Comment on above: Performed By: #### M G, CMP #### [facility] [address] [place] [address] Dr. Deepak Greenfield Lymphocytes/100 WBC (Bld) 42.3 % Normal 20.5-60.0 [facility] Comment on above: Performed By: #### M G, CMP #### [facility] [address] [place] [address] Dr. Deepak Greenfield MANUAL DIFF REQ NO Normal [facility] Comment on above: Performed By: #### M G, CMP #### [facility] [address] [place] [address] Dr. Deepak Greenfield MCH (RBC) [Entitic mass] 32.4 pg Normal 25.9-34.0 [facility] Comment on above: Performed By: #### M G, CMP #### [facility] [address] [place] [address] Dr. Deepak Greenfield MCHC (RBC) [Mass/Vol] 32.4 g/dL Normal 29.9-35.2 [facility] Comment on above: Performed By: #### M G, CMP #### [facility] [address] [address] [address] Deepak Greenfield MCV (RBC) [Entitic vol] 100.0 fL Critically high 80.0-94.0 [facility] Comment on above: Performed By: #### M G, CMP #### [facility] [address] [address] [address] Deepak Greenfield MONO # 0.6 103/ul Normal 0.3-0.8 [facility] Comment on above: Performed By: #### M G, CMP #### [facility] [address] [place] [address] Dr. Deepak Greenfield Monocytes/100 WBC (Bld) 7.6 % Normal 1.7-12.0 [facility] Comment on above: Performed By: #### M G, CMP #### [facility] [address] [place] [address] Dr. Deepak Greenfield NEUT # 3.8 103/ul Normal 1.4-6.5 [facility] Comment on above: Performed By: #### M G, CMP #### [facility] [address] [place] [address] Dr. Deepak Greenfield Neutrophils/100 WBC (Bld) 48.4 % Normal 43.0-75.0 [facility] Comment on above: Performed By: #### M G, CMP #### [facility] [address] [place] [address] Dr. Deepak Greenfield Platelet mean volume (Bld) [Entitic vol] 9.6 fL Normal 9.5-13.5 [facility] Comment on above: Performed By: #### M G, CMP #### [facility] [address] [place] [address] Dr. Deepak Greenfield PLT 315 103/ul Normal 150-450 [facility] Comment on above: Performed By: #### M G, CMP #### [facility] [address] [place] [address] Dr. Deepak Greenfield RBC 4.04 106/ul Critically low 4.70-6.10 [facility] Comment on above: Performed By: #### M G, CMP #### [facility] [address] [address] [address] Deepak Greenfield WBC 7.9 103/ul Normal 4.0-11.0 [facility] Comment on above: Performed By: #### M G, CMP #### [facility] [address] [place] [address] Dr. Deepak Greenfield DEPAKENE/VALPROICon 01-13-20 DEPAKENE 89.7 ug/ml Normal 50.0-100.0 [facility] Comment on above: Performed By: #### I NFLUAB #### [facility] [address] [place] [address] Dr. Deepak Greenfield PROF CHEM 8 (BAS METB)on Anion gap [Moles/Vol] 12.9 mmol/L Normal [facility] Comment on above: Performed By: #### I NFLUAB #### [facility] [address] [place] [address] Dr. Deepak Greenfield Calcium [Mass/Vol] 8.8 mg/dL Normal 8.5-10.[address] [facility] Comment on above: Performed By: #### I NFLUAB #### [facility] [address] [place] [address] Dr. Deepak Greenfield Chloride [Moles/Vol] 103 mmol/L Normal 98-107 [facility] Comment on above: Performed By: #### I NFLUAB #### [facility] [address] [place] [address] Dr. Deepak Greenfield CO2 [Moles/Vol] 28.1 mmol/L Normal 21.0-32.0 [facility] Comment on above: Performed By: #### I NFLUAB #### [facility] [address] [place] [address] Dr. Deepak Greenfield Creatinine [Mass/Vol] 0.58 mg/dL Critically low 0.70-1.30 [facility] Comment on above: Performed By: #### I NFLUAB #### [facility] [address] [place] [address] Dr. Deepak Greenfield EGFR-AF NAMIBIAN >60 Normal >=60 [facility] Comment on above: Performed By: #### I NFLUAB #### [facility] [address] [place] [address] Dr. Deepak Greenfield EGFR-NON AF NAMIBIAN >60 Normal >=60 [facility] Comment on above: Performed By: #### I NFLUAB #### [facility] [address] [place] [address] Dr. Deepak Greenfield Glucose [Mass/Vol] 117 mg/dL Critically high 74-106 [facility] Comment on above: Performed By: #### I NFLUAB #### [facility] [address] [place] [address] Dr. Deepak Greenfield Potassium [Moles/Vol] 4.0 mmol/L Normal 3.5-5.1 [facility] Comment on above: Performed By: #### I NFLUAB #### [facility] [address] [place] [address] Dr. Deepak Greenfield Sodium [Moles/Vol] 140 mmol/L Normal 136-[address] [facility] Comment on above: Performed By: #### I NFLUAB #### [facility] [address] [place] [address] Dr. Deepak Greenfield Urea nitrogen [Mass/Vol] 7.0 mg/dL Normal 7.0-18.0 [facility] Comment on above: Performed By: #### I NFLUAB #### [facility] [address] [place] [address] Dr. Deepak Greenfield Urea nitrogen/Creatinine [Mass ratio] 12.1 mg/mg Normal [facility] Comment on above: Performed By: #### I NFLUAB #### [facility] [address] [place] [address] Dr. Deepak Madrigal 01-12-2022 AST [Catalytic activity/Vol] 31 U/L Normal 15-37 [facility] Comment on above: Performed By: #### C VDTBH #### [facility] [address] [place] [address] Dr. Deepak Medrano 01-12-2022 ALT [Catalytic activity/Vol] 48 U/L Normal 16-63 [facility] Comment on above: Performed By: #### C VDTBH #### [facility] [address] [place] [address] Dr. Deepak Greenfield T PROTEIN SERUMon 01-12-2022 Protein [Mass/Vol] 7.3 g/dL Normal 6.4-8.[address] [facility] Comment on above: Performed By: #### B MP #### [facility] [address] [place] [address] Dr. Deepak Greenfield XR CHEST 2 Von [...] by: ANICETO CROCKER Date: 2022-01-06 16:15 Normal [facility] XR DEXA BONE DENSITYon 11-20 XR [...] by: MARGARITO DAVIES Date: 2021-11-20 11:42 Normal [facility] US SCROTUMon 11-14-2021 US SCROTUM EXAMINATION: [...] KRISTIAN BILLINGS Date: 2021-11-14 07:10 Normal [facility] AMMONIAon 10-31-2021 Ammonia (P) [Moles/Vol] 88 umol/L Critically high [facility] Comment on above: Performed By: #### M G, CMP #### [facility] [address] [place] [address] Dr. Deepak Greenfield AMMONIAon 10-30-2021 Ammonia (P) [Moles/Vol] 103 umol/L Critically high [facility] Comment on above: Result Comment: SPEC IMEN SLIGHTLY HEMOLYZED MAY AFFECT AMM RESULT Performed By: #### I NFLUAB #### [facility] [address] [address] [address] Deepak Greenfield WOUND CULTUREon 10-23-2021 Bacteria identified Aer cx Nom (Unsp spec) Final report Normal [facility] Comment on above: Performed By: #### C XWND #### [facility] [address] [place] [address] Dr. Deepak Greenfield Result 1 Comment Normal [facility] Comment on above: Result Comment: No g rowphillip in 36 - 48 hours. Performed By: #### C XWND #### [facility] [address] [place] [address] Dr. Deepak Greenfield WOUND CULTUREon 10-02-2021 Bacteria identified Aer cx Nom (Unsp spec) Final report Normal [facility] Comment on above: Performed By: #### A MM #### [facility] [address] [place] [address] Dr. Deepak Greenfield Result 1 Mixed skin omid Normal [facility] Comment on above: Performed By: #### A MM #### [facility] [address] [place] [address] Dr. Deepak Greenfield AMYLASEon 09-22-2021 Amylase [Catalytic activity/Vol] 24 U/L Critically low 25-115 [facility] Comment on above: Performed By: #### C BC #### [facility] [address] [place] [address] Dr. Deepak Greenfield CBC AUTO DIFFon 09-22-2021 BASO # 0.0 103/ul Normal 0.0-0.1 [facility] Comment on above: Performed By: #### C VDTBH #### [facility] [address] [place] [address] Dr. Deepak Greenfield Basophils/100 WBC (Bld) 0.5 % Normal 0.2-2.0 [facility] Comment on above: Performed By: #### C VDTBH #### [facility] [address] [place] [address] Dr. Deepak Greenfield EO # 0.1 103/ul Normal 0.0-0.7 [facility] Comment on above: Performed By: #### C VDTBH #### [facility] [address] [place] [address] Dr. Deepak Greenfield Eosinophils/100 WBC (Bld) 1.3 % Normal 0.9-7.0 [facility] Comment on above: Performed By: #### C VDTBH #### [facility] [address] [place] [address] Dr. Deepak Greenfield Erythrocyte distribution width (RBC) [Ratio] 13.9 % Normal 11.0-15.0 [facility] Comment on above: Performed By: #### C VDTBH #### [facility] [address] [place] [address] Dr. Deepak Greenfield Hematocrit (Bld) [Volume fraction] 40.0 % Critically low 42.0-54.0 [facility] Comment on above: Performed By: #### C VDTBH #### [facility] [address] [place] [address] Dr. Deepak Greenfield Hemoglobin (Bld) [Mass/Vol] 13.0 g/dL Critically low 14.0-18.0 [facility] Comment on above: Performed By: #### C VDTBH #### [facility] [address] [place] [address] Dr. Deepak Greenfield IG # 0.01 10e3/ul Normal 0.00-0.03 [facility] Comment on above: Performed By: #### C VDTBH #### [facility] [address] [place] [address] Dr. Deepak Greenfield IG % 0.2 % Normal 0.0-0.5 [facility] Comment on above: Performed By: #### C VDTBH #### [facility] [address] [place] [address] Dr. Deepak Greenfield LYMPH # 3.0 103/ul Normal 1.2-3.8 [facility] Comment on above: Performed By: #### C VDTBH #### [facility] [address] [place] [address] Dr. Deepak Greenfield Lymphocytes/100 WBC (Bld) 47.9 % Normal 20.5-60.0 [facility] Comment on above: Performed By: #### C VDTBH #### [facility] [address] [place] [address] Dr. Deepak Greenfield MANUAL DIFF REQ NO Normal [facility] Comment on above: Performed By: #### C VDTBH #### [facility] [address] [place] [address] Dr. Deepak Greenfield MCH (RBC) [Entitic mass] 32.9 pg Normal 25.9-34.0 [facility] Comment on above: Performed By: #### C VDTBH #### [facility] [address] [place] [address] Dr. Deepak Greenfield MCHC (RBC) [Mass/Vol] 32.5 g/dL Normal 29.9-35.2 [facility] Comment on above: Performed By: #### C VDTBH #### [facility] [address] [place] [address] Dr. Deepak Gerenfield MCV (RBC) [Entitic vol] 101.3 fL Critically high 80.0-94.0 [facility] Comment on above: Performed By: #### C VDTBH #### [facility] [address] [place] [address] Dr. Deepak Greenfield MONO # 0.7 103/ul Normal 0.3-0.8 [facility] Comment on above: Performed By: #### C VDTBH #### [facility] [address] [place] [address] Dr. Deepak Greenfield Monocytes/100 WBC (Bld) 10.3 % Normal 1.7-12.0 [facility] Comment on above: Performed By: #### C VDTBH #### [facility] [address] [place] [address] Dr. Deepak Greenfield NEUT # 2.5 103/ul Normal 1.4-6.5 [facility] Comment on above: Performed By: #### C VDTBH #### [facility] [address] [place] [address] Dr. Deepak Greenfield Neutrophils/100 WBC (Bld) 39.8 % Critically low 43.0-75.0 [facility] Comment on above: Performed By: #### C VDTBH #### [facility] [address] [place] [address] Dr. Deepak Greenfield Platelet mean volume (Bld) [Entitic vol] 10.1 fL Normal 9.5-13.5 [facility] Comment on above: Performed By: #### C VDTBH #### [facility] [address], [place] [address] Dr. Deepak Greenfield PLT 311 103/ul Normal 150-450 [facility] Comment on above: Performed By: #### C VDTBH #### [facility] [address], [place] [address] Dr. Deepak Greenfield RBC 3.95 106/ul Critically low 4.70-6.10 [facility] Comment on above: Performed By: #### C VDTBH #### [facility] [address], [place] [address] Dr. Deepak Greenfield WBC 6.3 103/ul Normal 4.0-11.0 [facility] Comment on above: Performed By: #### C VDTBH #### [facility] [address], [place] [address] ABD/PELV W CONon [...] JAMIE ALICIA Date: 2021-09-22 02:34 Normal [facility] CT HEAD WO CONon 09-22-2021 CT [...] BRITTON FONTENOT Date: 2021-09-22 01:13 Normal [facility] LIPASEon 09-22-2021 Lipase [Catalytic activity/Vol] 28.0 U/L Critically low 73.0-393.0 [facility] Comment on above: Performed By: #### C BC #### [facility] [address], [place] [address] Dr. Deepak Greenfield PROF 14(COMP METB)on 022 Albumin [Mass/Vol] 3.3 g/dL Critically low 3.4-5.0 [facility] Comment on above: Performed By: #### B MP #### [facility] [address], [place] [address] Dr. Deepak Greenfield Albumin/Globulin [Mass ratio] 0.9 {ratio} Normal [facility] Comment on above: Performed By: #### B MP #### [facility] [address] [address] [address] Deepak Greenfield ALP [Catalytic activity/Vol] 38 U/L Critically low 46-116 [facility] Comment on above: Performed By: #### B MP #### [facility] [address] [address] [address] Deepak Greenfield ALT [Catalytic activity/Vol] 91 U/L Critically high 16-63 [facility] Comment on above: Performed By: #### B MP #### [facility] [address] [address] [address] Deepak Greenfield Anion gap [Moles/Vol] 10.2 mmol/L Normal [facility] Comment on above: Performed By: #### B MP #### [facility] [address] [address] [address] Deepak Greenfield AST [Catalytic activity/Vol] 50 U/L Critically high 15-37 [facility] Comment on above: Performed By: #### B MP #### [facility] [address] [address] [address] Deepak Greenfield Bilirubin [Mass/Vol] 0.3 mg/dL Normal 0.2-1.0 [facility] Comment on above: Performed By: #### B MP #### [facility] [address] [address] [address] Deepak Greenfield Calcium [Mass/Vol] 8.6 mg/dL Normal 8.5-10.[address] [facility] Comment on above: Performed By: #### B MP #### [facility] [address] [address] [address] Deepak Greenfield Chloride [Moles/Vol] 106 mmol/L Normal 98-107 [facility] Comment on above: Performed By: #### B MP #### [facility] [address] [address] [address] Deepak Greenfield CO2 [Moles/Vol] 29.9 mmol/L Normal 21.0-32.0 [facility] Comment on above: Performed By: #### B MP #### [facility] [address] [address] [address] Deepak Greenfield Creatinine [Mass/Vol] 0.65 mg/dL Critically low 0.70-1.30 [facility] Comment on above: Performed By: #### B MP #### [facility] [address] [address] [address] Deepak Greenfield EGFR-AF NAMIBIAN >60 Normal >=60 [facility] Comment on above: Performed By: #### B MP #### [facility] [address] [address] [address] Deepak Greenfield EGFR-NON AF NAMIBIAN >60 Normal >=60 [facility] Comment on above: Performed By: #### B MP #### [facility] [address] [address] [address] Deepak Greenfield Globulin (S) [Mass/Vol] 3.7 g/dL Normal [facility] Comment on above: Performed By: #### B MP #### [facility] [address] [place] [address] Dr. Deepak Greenfield Glucose [Mass/Vol] 105 mg/dL Normal 74-106 [facility] Comment on above: Performed By: #### B MP #### [facility] [address] [place] [address] Dr. Deepak Greenfield Potassium [Moles/Vol] 4.1 mmol/L Normal 3.5-5.1 [facility] Comment on above: Performed By: #### B MP #### [facility] [address] [place] [address] Dr. Deepak Greenfield Protein [Mass/Vol] 7.0 g/dL Normal 6.4-8.2 [facility] Comment on above: Performed By: #### B MP #### [facility] [address] [place] [address] Dr. Deepak Greenfield Sodium [Moles/Vol] 142 mmol/L Normal 136-145 [facility] Comment on above: Performed By: #### B MP #### [facility] [address] [address] [address] Deepak Greenfield Urea nitrogen [Mass/Vol] 13.0 mg/dL Normal 7.0-18.0 [facility] Comment on above: Performed By: #### B MP #### [facility] [address] [address] [address] Deepak Greenfield Urea nitrogen/Creatinine [Mass ratio] 20.0 mg/mg Normal [facility] Comment on above: Performed By: #### B MP #### [facility] [address] [address] [address] Deepak Greenfield Vital Signs Date Time Vital Sign Value Performing Clinician Facility 06-05-2024 21:37-0500 Heart rate 122 /min [facility] 06-02-2024 13:35-0500 Body temperature 98.91 [degF] [facility] 06-02-2024 13:35-0500 Body weight 63.05 kg [facility] 06-02-2024 13:35-0500 Diastolic blood pressure 73 mm[Hg] [facility] 06-02-2024 13:35-0500 Heart rate 115 /min [facility] 06-02-2024 13:35-0500 Respiratory rate 16 /min [facility] 06-02-2024 13:35-0500 Systolic blood pressure 154 mm[Hg] [facility] 06-02-2024 13:25-0500 Body temperature 98.91 [degF] Boyd Harry MD Work Phone: [facility] 06-02-2024 13:25-0500 Body weight 63.05 kg Boyd Harry MD Work Phone: [facility] 06-02-2024 13:25-0500 Diastolic blood pressure 73 mm[Hg] Boyd Harry MD Work Phone: [facility] 06-02-2024 13:25-0500 Heart rate 115 /min Boyd Harry MD Work Phone: [facility] 06-02-2024 13:25-0500 Respiratory rate 16 /min Boyd Harry MD Work Phone: [facility] 06-02-2024 13:25-0500 Systolic blood pressure 154 mm[Hg] Boyd Harry MD Work Phone: [facility] 05-31-2024 13:05-0500 Diastolic blood pressure 64 mm[Hg] Rodriguez Rashel DO Work Phone: [facility] 05-31-2024 13:05-0500 Systolic blood pressure 108 mm[Hg] Rodriguez Rashel DO Work Phone: [facility] 03-07-2024 11:34-0500 Diastolic blood pressure 88 mm[Hg] Rodriguez Rashel DO Work Phone: [facility] 03-07-2024 11:34-0500 Heart rate 68 /min Rodriguez Rashel DO Work Phone: [facility] 03-07-2024 11:34-0500 SaO2% (BldA) [Mass fraction] 98 % Rodriguez Rashel DO Work Phone: [facility] 03-07-2024 11:34-0500 Systolic blood pressure 128 mm[Hg] Rodriguez Rashel DO Work Phone: [facility] 12-16-2022 10:18-0400 Blood Pressure Location Arline Lue [facility] 12-16-2022 10:18-0400 Body temperature 98.06 [degF] Arline Lue [facility] 12-16-2022 10:18-0400 Diastolic blood pressure 78 mm[Hg] Arline Lue [facility] 12-16-2022 10:18-0400 Heart rate 84 /min Arline Lue [facility] 12-16-2022 10:18-0400 Systolic blood pressure 128 mm[Hg] Arline Lue [facility] 12-23-2021 11:30-0400 Body height 157.48 cm Antionette Leonel Other [facility] Other 12-23-2021 11:30-0400 Body mass index (BMI) [Ratio] 25.79 kg/m2 Antionette Leonel Other [facility] Other 12-23-2021 11:30-0400 Body temperature 98.5 [degF] Antionette Leonel Other [facility] Other 12-23-2021 11:30-0400 Body weight 63.96 kg Antionette Leonel Other [facility] Other 12-23-2021 11:30-0400 Diastolic blood pressure 70 mm[Hg] Antionette Leonel Other [facility] Other 12-23-2021 11:30-0400 Respiratory rate 20 /min Antionette Leonel Other [facility] Other 12-23-2021 11:30-0400 SaO2% (BldA) [Mass fraction] 99 % Antionette Leonel Other [facility] Other 12-23-2021 11:30-0400 Systolic blood pressure 120 mm[Hg] Antionette Leonel Other [facility] Other 10-22-2021 10:29-0400 Blood Pressure Location Arline Lue [facility] 10-22-2021 10:29-0400 Diastolic blood pressure 92 mm[Hg] Arline Lue [facility] 10-22-2021 10:29-0400 Heart rate 100 /min Arline Levine [facility] 10-22-2021 10:29-0400 Respiratory rate 16 /min Arline Levine [facility] 10-22-2021 10:29-0400 Systolic blood pressure 137 mm[Hg] Arline Levine [facility] Encounters Encounter Date Encounter Type Care Provider Facility Start: 07-11-2024 End: 07-11-2024 ambulatory [facility] Work Phone: Start: 07-11-2024 End: 07-11-2024 Patient encounter procedure [facility] Formerly Named [facility] Work Phone: Start: 06-12-2024 ambulatory [facility] Start: 06-12-2024 End: 06-12-2024 ambulatory AP SCOTT [facility] Start: 06-02-2024 Encounter for other preprocedural examination UNKNOWN PROVIDER [facility] Start: 06-02-2024 End: 06-02-2024 ambulatory BOYD HARRY Facility:[facility] Start: 06-02-2024 End: 06-02-2024 Office outpatient new 45 minutes [facility] Pre-Admission Testing Comment on above: Preop examination (P rimary Dx); Intellectual disability; Hypothyroidism, unspecified type; Seizure (HCC); Edema, unspecified type; Tachycardia, unspecified; Cardiomegaly; Abnormal electrocardiogram (ECG) (EKG); Abnormal electrocardiogram (ECG) (EKG); Abnormal electrocardiogram (ECG) (EKG) Pre-op evaluation (P rimary Dx); Mental disability; Hypothyroidism, unspecified type; Abnormal thyroid blood test Start: 06-02-2024 End: 06-02-2024 Preprocedural examination done Boyd Harry MD Work Phone: [facility] Work Phone: Start: 06-02-2024 End: 06-02-2024 ambulatory BOYD HARRY Facility:[facility] Start: 05-31-2024 End: 05-31-2024 Bamboo flowsheet Rodriguez Rashel DO Work Phone: [facility] Start: 05-31-2024 End: 05-31-2024 Bamboo flowsheet Rodriguez Rsahel DO Work Phone: [facility] Start: 05-31-2024 End: 05-31-2024 Office outpatient visit 25 minutes Rodriguez Rashel DO Work Phone: [facility] Comment on above: Generalized convulsi ve epilepsy (CMS/HCC) (Primary Dx); 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); Spastic hemiplegia, nondominant side (HCC) (CMS/HCC); Spastic hemiplegia affecting dominant side (CMS/HCC); Severe intellectual disabilities (CMS/HCC); Behavior disturbance (CMS/HCC) Start: 05-31-2024 End: 05-31-2024 ambulatory RODRIGUEZ RASHEL Not Available Start: 03-28-2024 End: 03-28-2024 Admission to same day surgery center Jared Adair DDS Work Phone: [facility] Start: 03-07-2024 End: 03-07-2024 Bamboo flowsheet Rodriguez Rashel DO Work Phone: [facility] [place] [address] Start: 03-07-2024 End: 03-07-2024 Bamboo flowsheet Rodriguez Rashel DO Work Phone: [facility] [address] Start: 03-07-2024 End: 03-07-2024 Office outpatient visit 25 minutes Rodriguez Kiser DO Work Phone: [phone] [place] [address] [address] Comment on above: Generalized convulsi ve epilepsy (CMS/HCC) (Primary Dx); 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); Spastic hemiplegia affecting dominant side (CMS/HCC); Spastic hemiplegia, nondominant side (HCC) (CMS/HCC); Severe intellectual disabilities (CMS/HCC) Start: 03-07-2024 End: 03-07-2024 ambulatory RODRIGUEZ KISER Not Available Start: 01-11-2024 End: 01-11-2024 ambulatory [facility] Work Phone: Start: 01-11-2024 End: 01-11-2024 Patient encounter procedure [facility] Work Phone: Start: 11-07-2023 End: 11-07-2023 Letter encounter Abundio Mares DDS Work Phone: [facility] Start: 08-25-2023 End: 08-25-2023 ambulatory RODRIGUEZ KISER Not Available Start: 07-06-2023 End: 07-06-2023 ambulatory [facility] Work Phone: Start: 07-06-2023 End: 07-06-2023 Patient encounter procedure [facility] Work Phone: Start: 01-05-2023 End: 01-05-2023 ambulatory Antionette Leonel Other [facility] Other Start: 01-05-2023 Office outpatient vi sit 25 minutes Antionette Leonel [facility] Start: 12-16-2022 End: 12-17-2022 ambulatory Arline Levine Facility:[facility] Start: 12-16-2022 End: 12-16-2022 Patient encounter procedure Arline Levine [facility] Start: 08-04-2022 End: 08-04-[address] FAM ACEVEDO Facility: Start: 07-29-2022 End: 08-02-2022 Evaluation and management of inpatient DR FAM ACEVEDO Facility:[facility] Start: 07-26-2022 End: 07-27-[address] FAM ACEVEDO Facility:[facility] Start: 07-23-2022 End: 07-24-2022 ambulatory FAM ACEVEDO Facility:[facility] Start: 07-23-2022 End: 07-23-2022 Patient encounter procedure FMA ACEVEDO [facility] Start: 06-23-2022 End: 06-23-2022 ambulatory Antionette Leonel Other [facility] Other Start: 06-23-2022 Office outpatient vi sit 25 minutes Antionette Leonel [facility] Start: 06-03-2022 End: 06-04-[address] FAM ACEVEDO Facility:[facility] Start: 05-08-2022 Letter encounter Abundio Mares KETAN Work Phone: [facility] Start: 04-22-2022 End: 04-23-[address] FAM ACEVEDO Facility:[facility] Start: 03-19-2022 End: 03-20-[address] FAM ACEVEDO Facility:[facility] Start: 03-10-2022 End: 03-11-[address] FAM ACEVEDO Facility:[facility] Start: 01-24-2022 End: 01-24-[address] DIAMOND BURGER . Facility:[facility] Start: 01-18-2022 End: 01-18-2022 ambulatory ANJELICA DOLL . Facility:[facility] Start: 01-13-[address] [facility] Start: 01-12-2022 End: 01-13-[address] RODRIGUEZ KISER Facility:[facility] Start: 01-06-2022 End: 01-07-[address] FAM ACEVEDO Facility:[facility] Start: 12-23-2021 End: 12-23-2021 ambulatory Antionette Leonel Other [facility] Other Start: 12-23-2021 Office outpatient vi sit 25 minutes Antionette Leonel [facility] Start: 12-16-2021 End: 12-17-2021 Patient encounter procedure Mora Powell [facility] Work Phone: [facility] Start: 12-10-2021 End: 12-10-2021 Patient encounter procedure Arline Levine [facility] Start: 11-20-2021 End: 11-21-[address] FAM ACEVEDO Facility:[facility] Start: 11-13-2021 End: 11-14-2021 ambulatory ARLINE Duenas Facility:[facility] Start: 10-31-2021 End: 11-01-[address] FAM ACEVEDO Facility:[facility] Start: 10-22-2021 End: 10-22-2021 Patient encounter procedure Arline Levine [facility] Start: 10-21-2021 End: 10-21-[address] FAM ACEVEDO Facility:[facility] Start: 09-29-2021 End: 09-29-[address] FAM ACEVEDO Facility:[facility] Start: 09-22-2021 End: 09-22-2021 ambulatory ABBI SANCHEZ Facility:[facility] Procedures Date Procedure Procedure Detail Performing Clinician Start: 06-02-2024 Blood count complete automated Сергей Alves MD Work Phone: Start: 06-02-2024 Ecg routine ecg w/le ast 12 lds trcg only w/o i&r Сергей Alves MD Work Phone: Start: 05-31-2024 Elec julisa implt npgt phys/qhp w/o programming Rodriguez Rashel DO Work Phone: Start: 03-13-2024 Elec julisa implt npgt phys/qhp w/o programming Rodriguez Rashel DO Work Phone: Plan of Treatment Date Care Activity Detail Author Start: 02-01-2030 Shingles (RZV) Vacci ne (1 of 2) Shingles (RZV) Vaccine (1 of 2) [facility] Start: 08-12-2028 [facility] Start: 06-02-2025 Thyroid stimulating hormone measurement TSH [facility] Start: 12-11-2024 End: 12-11-2024 Patient encounter procedure 12/11/2024 10:00 AM EDT Procedure Visit [facility] [address] [place] [address] Ap Scott, S [address] [place] [address] [facility] Start: 11-20-2024 End: 11-20-2024 Patient encounter procedure 11/20/2024 11:20 AM EDT Office Visit [facility] [address] [place] [id number] Marissa Gonzalez NP [address] [facility] Start: 06-12-2024 Subsequent hospital visit by physician 06/12/2024 Hospital Encounter [facility] Surgery [address] [place] [address] Ap Scott, [address] [place] [address] [facility] Start: 06-02-2024 End: 06-02-2024 Patient encounter procedure 06/02/2024 1:30 PM EST Office Visit [facility] [address] [place] [address] Boyd Harry MD [address] [place] [address] [facility] Start: 05-31-2024 End: 05-31-2024 Patient encounter procedure [facility] [address] Comment on above: Arrived Start: 05-30-2024 Welcome to Medicare Visit (G0402) Welcome to Medicare Visit (G0402) [facility] Start: 03-07-2024 End: 03-07-2024 Patient encounter procedure 03/07/2024 11:30 AM EST Office Visit [facility] [address] [place] [id number] Rashel Rodriguez, DO [address] [place] [address] Ar[address] [facility] [address] Comment on above: Arrived Start: 01-18-2024 Influenza vaccination Influenza Vacc ine (#1) [facility] Start: 12-19-2023 COVID-19 Vaccine ( season) COVID-19 Vaccine ( season) [facility] Start: 12-19-2023 Influenza vaccination Influenza Vacc ine (#1) [facility] Start: 12-18-2022 COVID-19 Vaccine ( season) COVID-19 Vaccine ( season) [facility] Start: 01-17-2022 Influenza vaccination Influenza Vacc ine (#1) [facility] Start: 02-01-2015 Lipid panel Cholesterol [facility] Start: 05-20-2012 Annual wellness visit [facility] Start: 02-01-2007 [...] [facility] Start: 02-01-1995 HIV screening HIV Test [facility] Start: 1980 COVID-19 Vaccine (#1) COVID-19 Vacci ne (#1) [facility] Start: 1980 Medicare Annual Wellness (AWV) Medicare Annual Wellness (AWV) [facility] Start: 1980 Prostate specific antigen measurement Prostate Cancer Screening (shared decision making) [facility] DENTAL RESTORATIONS DENTAL ANI RATIONS Routine scheduled Caries [facility] Immunizations Immunization Date Immunization Notes Care Provider Lucero perry 03-04-2020 pneumococcal conjuga te vaccine, 13 valent Mora Urmetz RDH Work Phone: [facility] 01-26-2018 influenza, injectabl e, quadrivalent, preservative free Mora Urmetz RDH Work Phone: [facility] 01-26-2018 influenza virus vaccine, unspecified formulation Mora Urmetz RDH Work Phone: [facility] 02-10-2017 influenza virus vaccine, unspecified formulation Arline Lue [facility] 02-10-2017 influenza, injectabl e, quadrivalent, contains preservative Mora Urmetz RDH Work Phone: [facility] 02-07-2015 influenza virus vaccine, unspecified formulation Arline Lue [facility] 02-07-2015 influenza, injectabl e, quadrivalent, preservative free Mora Urmetz RDH Work Phone: [facility] 10-23-2014 pneumococcal polysaccharide vaccine, 23 valent Mora Urmetz RDH Work Phone: [facility] 12-31-2010 influenza virus vaccine, unspecified formulation Arline Lue [facility] 12-31-2010 influenza, seasonal, injectable Mora Urmetz RDH Work Phone: [facility] 03-06-2009 novel [id number], preservative-free, injectable Mora Urmetz RDH Work Phone: [facility] 02-09-2008 influenza virus vaccine, whole virus Mora Powell [facility] Work Phone: [facility] 02-09-2008 influenza, whole Arline Levine [facility] NEGATED: Highlighted row has not occurred!12-10-2021 SARS-CoV-2 mRNA (tozinameran 5y-11y) vaccine Arline Levine [facility] Payers Date Payer Category Payer Medicaid [id number] 2011 Medicare [id number] 2011 Medicare FFS [id number] 1980 Unknown [id number] 2.16.84 0.1.008717.3.579.2.593 1980 Unknown [id number] 2.16.84 0.1.807775.3.579.2.593 1980 Unknown [id number] 2.16.84 0.1.269285.3.579.2.593 1980 Unknown [id number] 2.16.84 0.1.970188.3.579.2.593 1980 Unknown [id number] 2.16.8 40.1.287203.3.579.2.727 1980 Unknown [id number] 2.16.8 40.1.547230.3.579.2.727 1980 Unknown [id number] 2.16.84 0.1.388688.3.579.2.1259 1980 Unknown [id number] 2.16.84 0.1.421502.3.579.2.1259 1980 Unknown [id number] 2.16.84 0.1.521293.3.579.2.1259 1980 Unknown [id number] 2.16. 840.1.113754.3.579.2.732 1980 Unknown [id number] 2.16. 840.1.185521.3.579.2.732 1980 Unknown [id number] 2.16. 840.1.014115.3.579.2.732 1980 Unknown [id number] 2.16. 840.1.133167.3.579.2.732 1980 Unknown [id number] 2.16. 840.1.968850.3.579.2.732 1980 Unknown [id number] 2.16. 840.1.579818.3.579.2.732 1959 Medicaid [id number] 2. 16.840.1.471287.19 1959 Medicare [id number] 2.1 6.840.1.369458.19 1953 Unknown [id number] 2.16.84 0.1.327520.3.579.2.593 1953 Unknown [id number] 2.16.84 0.1.360782.3.579.2.593 1953 Unknown [id number] 2.16.84 0.1.781135.3.579.2.593 1953 Unknown [id number] 2.16.84 0.1.491192.3.579.2.593 1953 Unknown [id number] 2.16.84 0.1.497859.3.579.2.593 1953 Unknown [id number] 2.16.84 0.1.729042.3.579.2.593 1953 Unknown [id number] 2.16.84 0.1.357978.3.579.2.593 1953 Unknown [id number] 2.16.84 0.1.902359.3.579.2.593 1953 Unknown [id number] 2.16.84 0.1.234687.3.579.2.593 1953 Unknown [id number] 2.16.84 0.1.668961.3.579.2.593 1953 Unknown [id number] 2.16.84 0.1.469682.3.579.2.593 1953 Unknown [id number] 2.16.84 0.1.371113.3.579.2.593 1953 Unknown [id number] 2.16.84 0.1.447220.3.579.2.593 1953 Unknown [id number] 2.16.84 0.1.298659.3.579.2.593 Self-pay Self Pay [id number] Social History Date Type Detail Facility Tobacco smoking status No Smokin g Status Entered [facility] Start: 11-02-2022 End: 05-31-2024 Sex Assigned At Male [facility] Start[facility] 03-28-[address] [facility] Start: 1980 [facility] smoking status No Smokin g Status Entered [facility] Start: 11-02-2022 End: 12-16-2022 Tobacco smoking status Never smoked tobacco (finding) [facility] Tobacco smoking status Never [facility] Start: 1980 Sex Assigned At Male [facility] Start: 11-02-2022 End: 05-31-2024 Alcoholic beverage intake Ex-drinker (finding) [facility] Start: 11-02-2022 End: 05-31-2024 History of Social function [facility] Start: 02-21-2012 End: 07-11-2024 Sex Male (finding) [facility] Functional Status Date Assessment Result Facility 12-16-2022 Functional Status N/A [facility] 12-10-2021 Functional Status N/A [facility] 10-22-2021 Functional Status N/A [facility] Clinical Notes 10-22-2021 to 06-12-2024 Addendum Note - Boyd Harry MD - 06/02/2024 5:54 PM ESTAddendum Note - Boyd Harry MD - 06/02/2024 5:54 PM ESTPatient InstructionsBoBoyd engel MD - 06/02/2024 2:29 PM EST Note Date & Type Note Facility [...] Beatris Thompson DDS 06/12/2024 6:59 AM [facility] 06-02-2024 Note Addended by: BOYD HARRY on: 06/02/2024 05:54 PM Modules accepted: Orders [facility] 06-02-2024 Miscellaneous Notes Addended by: BOYD HARRY on: 06/02/2024 05:54 PM Modules accepted: Orders documented in this encounter [facility] 06-02-2024 Note EXAMINATION: XR CHES T PA+LAT [...] and agree with the resident's interpretation. [facility] 06-02-2024 Note EXAMINATION: XR CHES T [...] images and agree with the resident's interpretation. RADIOLOGY 06-02-2024 Instructions Boyd Harry MD - 06/02/2024 2:47 PM EST RECOMMENDATIONS: Patient was instructed on the following: Nothing by mouth after midnight before surgery except following meds with sip of water on AM of surgery: as per anesthesia Stop aspirin 7 days before surgery Stop NSAID 5 days before surgery Stop Vitamin E 10 days prior to surgery Stop alternative/herbal medication 10 days before surgery Boyd Harry MD documented in this encounter [facility] 06-02-2024 History of Presen t illness Narrative Blood pressure 154/73, pulse 115, temperature 98.9 F (37.2 C), resp. rate 16, weight 139 lb (63 [...] 1 extraction; Surgeon: Ap Scott DDS; Location: [facility]; Service: Dental Pertinent Social History Reviewed Social [...] fever, chills, night sweats, and weight loss [employer]: h/o Seizures; on multiple aeds Respiratory: h/o COPD No recent URI Cardiovascular: No h/o chest pain/IA/CHF/valvular disease/HTN GI: Hypersalivation Dysphagia GERD Constipation : BPH Renal: No h/o CRI/ESRD Endo: h/o thyroid disease > hypothyroidism; on synthroid Heme: No h/o excessive bleeding/ bruising, no h/o anemia, no h/o blood products Onc: No h/o malignancy VTE: No h/o DVT/PE Rheum: No h/o rheumatologic disease Psychiatric: ADHD PHYSICAL EXAMINATION: General: Uncooperative with exam Hyperactive Skin: Skin texture and tugor normal. No rash or lesions HEENT: Poor dentition Neck: No carotid bruit, JVD, lymphadenopathy or goiter CV: Normal S1/S2, no murmurs/gallops/rubs Lungs: Lungs clear to auscultation. Good air entry bilaterally Abdomen: Abdomen soft and non-tender. BS normal No masses or organomegaly. Extremities: Spastic quadriparesis Neuro: Spastic quadriparesis Pulses: 2+ carotid and radial pulses : Not examined/ Not indicated AIRWAY EXAM: Mallampati Classification of Airway: Unable to assess Thyromental Distance: =6cm Neck Extension: Not cooperative with exam Mouth Opening: Not cooperative with exam Teeth: Poor dentition ASA Classification: Class III: Individual with multiple system disease or well controlled major system disease. Disease status limits daily activity. EKG: Date: 06/02/24 Result: ST, HR 122, LAE, non specific t wave abnormalities LABS: Pending ASSESSMENT and PLAN Patient is a 44 year old year old male Functional capacity: <4.0 METs Comorbid Conditions: Spastic quadriparesis Intellectual disability, Seizure disorder VNS Status ADHD Hypothyroidism, HLD, PAR Osteoporosis Chronic sinusitis Dysphagia BPH GERD Constipation Revised Cardiac Risk Index: None Patient is scheduled for a procedure that is low risk. RECOMMENDATIONS: Patient was instructed on the following: Nothing by mouth after midnight before surgery except following meds with sip of water on AM of surgery: as per anesthesia Stop aspirin 7 days before surgery Stop NSAID 5 days before surgery Stop Vitamin E 10 days prior to surgery Stop alternative/herbal medication 10 days before surgery Recommendations to surgical team: None Patient is medically optimized for surgery pending : at baseline Boyd Harry MD [phone] documented in this encounter [facility] 06-02-2024 Note Do not eat or drink [...] procedure. Contact the Pre-Surgical Evaluation department at [phone] or your surgeon's office with any additional questions [facility] 06-02-2024 Instructions Сергей Alves MD - 06/02/2024 2:02 PM EST Do not eat or drink anything after [...] procedure. Contact the Pre-Surgical Evaluation department at [phone] or your surgeon's office with any additional questions documented in this encounter [facility] 06-02-2024 Evaluation note Pre-Admission Testing Consultation Parish Lopez, [id number] 44 year old Male 06/02/2024 Consult placed to [facility] by Dr. Zamora due to significant PMH of Seizures, mental disability, hypothyroid undergoing dental restorations 06/12 PAT Triage Risk Score Total Score: 2 2 [...] No STOP BANG: STOP-BANG Row Name 06/02/24 0889 History of sleep apnea? No Snoring No [...] 1 extraction; Surgeon: Ap Scott DDS; Location: [facility] [place]; Service: Dental Past Medical History and Review of Systems Pulmonary (+) COPD (-) sleep apnea Dental ROS (+) teeth problems missing Endo (+) hyperthyroidism Neuro/Psych (+) seizures Comment: intellectual disability Vagus nerve stimulator Cardiovascular (+) hyperlipidemia (-) hypertension, past IA, CAD, angina GI/Hepatic/Renal (+) GERD (-) renal [...] obtained history - performing a medically appropriate examination and/or evaluation - counseling and educating the patiecounseling and educating the patient/family/caregivernt/famil y/caregiver - counseling and educating the patient/family/caregiver - ordering medications, tests, or procedures - referring and communicating with other health critical care technician (when not separately reported) - documenting clinical information in the electronic or other health record - independently interpreting results (not separately reported) and communicating results to the patient/family/caregiver - care coordination (not separately reported). Interviewer signature: Сергей Alves MD 1:35 PM 06/02/2024 Cosigned by Jonnie Aguilar MD at 06/02/2024 2:05 PM EST [facility] 06-02-2024 Miscellaneous Notes Formattin g of this note is different from the original. Pre-Admission Testing Consultation Parish Lopez, [id number] 44 year old Male 06/02/2024 Consult placed to PAT by Dr. Zamora due to significant PMH of Seizures, mental disability, hypothyroid undergoing dental restorations 06/12 PAT Triage Risk Score Total Score: 2 2 [...] 1 extraction; Surgeon: Ap Scott DDS; Location: [facility] [place]; Service: Dental Past Medical History and Review of Systems Pulmonary (+) COPD (-) sleep apnea Dental ROS (+) teeth problems missing Endo (+) hyperthyroidism Neuro/Psych (+) seizures Comment: intellectual disability Vagus nerve stimulator Cardiovascular (+) hyperlipidemia (-) hypertension, past IA, CAD, angina GI/Hepatic/Renal (+) GERD (-) renal [...] obtained history - performing a medically appropriate examination and/or evaluation - counseling and educating the patiecounseling and educating the patient/family/caregivernt/famil y/caregiver - counseling and educating the patient/family/caregiver - ordering medications, tests, or procedures - referring and communicating with other health critical care technician (when not separately reported) - documenting clinical information in the electronic or other health record - independently interpreting results (not separately reported) and communicating results to the patient/family/caregiver - care coordination (not separately reported). Interviewer signature: Сергей Alves MD 1:35 PM 06/02/2024 Cosigned by Jonnie Aguilar MD at 06/02/2024 2:05 PM EST documented in this encounter [facility] 06-02-2024 Note Pre-Admission Testin g Consultation Parish Lopez, [id number] 44 year old Male 06/02/2024 Consult placed to [facility] by Dr. Zamora due to significant PMH of Seizures, mental disability, hypothyroid undergoing dental restorations 06/12 [facility] Triage Risk Score Total Score: 2 2 [...] 1 extraction; Surgeon: Ap Scott DDS; Location: [facility]; Service: Dental Past Medical History and Review of Systems Pulmonary (+) COPD (-) sleep apnea Dental ROS (+) teeth problems missing Endo (+) hyperthyroidism Neuro/Psych (+) seizures Comment: intellectual disability Vagus nerve stimulator Cardiovascular (+) hyperlipidemia (-) hypertension, past IA, CAD, angina GI/Hepatic/Renal (+) GERD (-) renal [...] appropriate examinati (more content not included)... [facility] 05-31-2024 History of Presen t illness Narrative Chief Complaint Patient presents with Seizures Subjective Parish Singh Rosy, 44 y.o., male Caregiver states that he [...] disorder) ADD/ADHD ADHD (attention deficit hyperactivity disorder) ([facility]/HCC) ADD/ADHD Chronic sinusitis Excessive salivation Hypertrophy [...] oddly now 124 there is a new perl programmer [employer]ostim : on at 1.25 Autostim Pulse Width: 500 [employer]ostim On Time: 30 Lead Test: not done Battery Life: 06/20 full Model: Oj Rocha #: [id number] Manufactured: 2019 Implant Date: 09/09/2021 Assessment/Plan Diagnoses [...] it may be due to a new perl programmer device difficult to say Labs as [...] clinic: 6 months. documented in this encounter [facility] 03-07-2024 History of Presen t illness [...] Life: 06/20 full Model: Oj Rocha #: [id number] Manufactured: 2019 Implant Date: 09/09/2021 Assessment/Plan Diagnoses [...] clinic: 6 months. documented in this encounter [facility] 01-05-2023 Evaluation note Encounter Date Diagnosis Assessment Notes Dec, COPD (chronic obstructive pulmonary disease) (ICD-10 - J44.9) [facility] Other 08-30-2023 Hospital Discharge instructions Patient Education [...] provider. Document Revised: 08/14/2021 Document Reviewed: 08/14/2021 [employer] Patient Education 2022 Eventstagr.am. Follow Up Care 12/10/2021 11:51:23 With:Abner BYRNE, JUNIOR Hawk, URO Address: When: Unknown Comments:LEN[facility] 03-07-2023 Evaluation note* Encounter Date Diagnosis Assessment Notes Treatment Notes Treatment Clinical Notes Jun, COPD (chronic obstructive pulmonary disease) (ICD-10 - J44.9) Continue with respiratory regemin, including VEST therapy, as you currently are doing. Call office with respiratory questions or concerns. [facility] Other 09-06-2022 Evaluation note* Encounter Date Diagnosis Assessment Notes Treatment Notes Treatment Clinical Notes Dec, COPD (chronic obstructive pulmonary disease) (ICD-10 - J44.9) Continue with VEST therapy twice a day. Ok to increase to TID if needed. [facility] Other 08-30-2022 Instructions* Patient Instructions* Mora Powell RDH - 12/16/2021 11:57 AM EDT Pt presented today for OR evaluation. Limited eval was completed. Pt's case is not urgent updated contact information and placed Pt on OR list. Step by step process for OR flyer was given to caregiver. Please wait for phone call from OR coordinator. documented in this [id number] History of Present illness Narrative* Mora Powell RDH - 12/16/2021 11:42 AM EDT ----- Thursday, December 16, 2021 at 12:03:50 PM ----- ----- Provider: [id number] Irizarry -- Clinic: [place] ----- [facility], Pt is ready for tx. Pt presented for dental evaluation for future OR. Caregiver in the room. Patient is non-verbal. Severe intellectual disability, seizure disorder Caregiver stated patient is not pain and no complaining. Radiograph taken today: no possible due to patient behavior Case requested for OR. Guardian mother Katia Lopez. [phone]. [facility] [phone] [id number] [id number] ( [facility]'s appt) AVS printed and handed flyer for step by step instruction of OR process to Caregiver exam By: Elliott Ham [facility]. OR ----- Signed on Thursday, December 16, 2021 at 12:18:18 PM ----- ----- Provider: Julia Adams DDS -- Clinic: [place] ----- documented in this [id number] Hospital Discharge instructions Patient Education 12/10/2021 11:47:35 [...] nerve stimulation). For women, using a medical reception specialist to prevent urine leaks. This is [...] right after experiencing incontinence. General instructions Take nvzb-lig-cdcxuso and prescription medicines only as told by [...] 05/13/2005 Document Revised: 04/15/2018 Document Reviewed: 07/15/2017 [employer] Patient Education 2020 Eventstagr.am. Follow Up Care 10/22/2021 11:38:20 With:Abner BYRNE, Arline Little URDominga, URO Address: When:1 year Comments:W/ renal US [facility] Nataliya 07-06-2022 Hospital Discharge instructions Patient [...] nerve stimulation). For women, using a medical reception specialist to prevent urine leaks. This is [...] right after experiencing incontinence. General instructions Take ppkm-imq-fvgdymv and prescription medicines only as told by [...] 05/13/2005 Document Revised: 04/15/2018 Document Reviewed: 07/15/2017 [employer] Patient Education 2020 Eventstagr.am. 10/22/2021 11:42:30 Renal Mass Renal Mass A [...] provider gives to you. In general: Take ezee-eei-myjugtk and prescription medicines only as told by [...] 10/31/2014 Document Revised: 05/12/2018 Document Reviewed: 05/12/2018 [employer] Patient Education 2020 Eventstagr.am. Follow Up Care 09/22/2021 14:10:46 With:Arline Levine MD, JUNIOR, URO Address: When:1 month [facility] evaluation + Plan note Future Appointments Appointment Date:11/19/2021 10:00:00 AM Scheduled Provider:Arline Levine MD Location:[facility] Appointment Type:URO Office Visit [facility] evaluation + Plan note Future Appointments Appointment Date:12/16/2022 10:15:00 AM Scheduled Provider:Arline Levine MD Location:[facility] Appointment Type:URO Office Visit [facility] evaluation note* Diagnosis Onset Date Resolution Status COPD (chronic obstructive pulmonary disease) acute Severe intellectual disability acute [facility] Work Phone: Evaluation note* Diagnosis [...] intellectual disability acute July 11, 2024 9:09am [facility] Work Phone: Evaluation note* Diagnosis Preop examination- Primary Preoperative examination, unspecified Intellectual disability Unspecified intellectual disabilities Hypothyroidism, unspecified type Seizure (HCC) Other convulsions Edema, unspecified type Tachycardia, unspecified Cardiomegaly Abnormal electrocardiogram (ECG) (EKG) [facility] Pre-op evaluation- Primary Preoperative examination, unspecified Mental disability Unspecified intellectual disabilities Hypothyroidism, unspecified type Abnormal thyroid blood test Nonspecific abnormal results of thyroid function study Pre-op evaluation Preoperative examination, unspecified [facility] - Reported* Type Description Date Medical History Mental retardation Medical History Seizure Disorder Medical History Tristen Syndrome Medical History ADD Medical History Hypothyroidism Medical History Spastic Quadraparesis Medical History Osteoporosis Medical History Tristen-Beuren syndrome Medical History Seizure disorder Medical History Seizure disorder Medical History COPD Surgical History VNS REPLACED 2021 [facility] Other Hospital course Narrative No data available for this section [facility] Hospital Discharge instructions No data available for this section [facility] data available for this section [facility] Summary Purpose Family History No Family [...] Care Team (unrecognized sect ion and content) Consumer Marketing Manager Relationship Specialty Start Date End Date Abundio Mares DDS [address] [id number] Resident Dentistry 02/23/20 Consumer Marketing Manager Relationship Specialty Start Date End Date Abundio Mares DDS [address] [place] [address] Resident Dentistry 02/23/20 Team Status: Active Member Role Status Dates Fam Acevedo DO Primary Care Provider Active Team Status: Inactive Member Role Status Dates Fam Acevedo DO Primary Care Provider Active Start: July 06, 2023 End: July 06, 2023 Antionette Castaneda APRN [facility] Attending Provider Active Start: July 06, 2023 End: July 06, 2023 Consumer Marketing Manager Relationship Specialty Start Date End Date Abundio Mares DDS [address] [place] [address] Resident Dentistry 02/23/20 Team Status: Inactive Member Role Status Dates Fam Acevedo DO Primary Care Provider Active Start: January 11, 2024 End: January 11, 2024 Antionette Castaneda APRN [facility] Attending Provider Active Start: January 11, 2024 End: January 11, 2024 [facility] Active Start: 2023 End: January 11, 2024 Consumer Marketing Manager Relationship Specialty Start Date End Date Unallocated, Rossi Fermin MD [address] [place] [id number] PCP - General 09/23/22 Fam Acevedo MD [facility] [address] [place] [address] Referring Physician Orthopaedic Surgery 09/23/22 Consumer Marketing Manager Relationship Specialty Start Date End Date Unallocated, Rossi Fermin MD [address] [place] [id number] PCP - General 09/23/22 Fam Acevedo MD [facility] [address] [place] [address] Referring Physician Orthopaedic Surgery 09/23/22 Consumer Marketing Manager Relationship Specialty Start Date End Date Abundio Mares DDS [address] [place] [address] Resident Dentistry 02/23/20 Consumer Marketing Manager Relationship Specialty Start Date End Date Abundio Mares DDS [address] [place] [address] Resident Dentistry 02/23/20 Consumer Marketing Manager Relationship Specialty Start Date End Date Unallocated, Noms Provider, [address] [place] [address] PCP - General 09/23/22 Fam Acevedo MD [address] [place] [address] Referring Physician Orthopaedic Surgery 09/23/22 Team Status: Inactive Member Role Status Dates Fam Acevedo DO Primary Care Provider Active Start: July 11, 2024 End: July 11, 2024 Antionette Castaneda APRN [facility] Attending Provider Active Start: July 11, 2024 End: July 11, 2024 Consumer Marketing Manager Relationship Specialty Start Date End Date VishnuAbundio barron DD [address] [place] [address] Resident Dentistry 02/23/20 Consumer Marketing Manager Relationship Specialty Start Date End Date Abundio Mares DDS [address] [place] [address] Resident Dentistry 02/23/20 REASON FOR VISIT (unrecogniz ed section and content) Reason Comments Seizures Reason Comments Pre-surgical Evaluation (unrecognized sect ion and content) No Status Records FoundNo Status Records FoundNo Status Records FoundNo Status Records Found INFORMATION SOURCE (unrecogn ized section and content) DATE CREATED AUTHOR 08/05/2022 [facility] DATE CREATED AUTHOR AUTHOR'S ORGANIZ ATION 01/26/2023 [facility] DATE CREATED AUTHOR AUTHOR'S ORGANIZ ATION 06/02/2024 [facility] DATE CREATED AUTHOR AUTHOR'S ORGANIZ ATION 06/19/2024 [facility] Goals (unrecognized section and content) Goals [...] BE BASED ON THE PRIMARY CLINICAL RECORDS. [facility]. provides no warranty or guarantee of the accuracy or completeness of information in this document.
[2024-11-02 10:15] LABS: Ammonia 68 umol/L (11-32)
== END 2024-11-02 09:38 | disposition home or self-care (01) ==
LOC: LAB 09:37
PROVIDERS: PCP Family Medicine; Visit Provider Family Medicine
DX: K76.82 Hepatic encephalopathy (principal); G40.89 Other seizures; Z79.899 Other long term (current) drug therapy
CPT/HCPCS: 36415; 82140

== ENCOUNTER 2024-11-03 06:35 | Emergency (ER) | payer MEDICARE, MEDICAID, SELFPAY ==
[2024-11-03 06:37] VITALS: BP 113/82; PULSE 70; TEMP 36.1; O2SAT 99; BMI 21.9
[2024-11-03 06:42] VITALS: PULSE 81
--- NOTE | 2024-11-03 06:46 | PC.NURSE ---
Sent from LTC facility for seizure activity. Awake and alert on arrival to ER. Unable to obtain EKG as patient sitting up in bed and refusing to lay back.
--- OUTSIDE RECORDS SUMMARY | 2024-11-03 06:46 | XMS_ITS | Clinical Summary ---
Author Organization [facility] Address [address] [place] [address] Care Team Providers Care Kiln Operator Helper Name Role Phone Unavailable Primary Care Provider [...] - 2023-2 5 season) 2023 Influenza Vaccine (#1) 2024 HIB Vaccine Aged Out No longer [...] patient's age to complete this topic Insurance [place] MED[place] MEDICARE
--- OUTSIDE RECORDS SUMMARY | 2024-11-03 06:46 | XMS_ITS | Clinical Summary ---
Author Organization [facility] Address [id number] [place] [address] Care Team Providers Care Hotel Valet Attendant Name Role Phone Andreia Kiser Primary Care Provider [phone] Allergies Active Allergy Reactions Criticality Noted Date [...] history exists Medical Devices Implanted Type Area Special Delivery Worker Device Identifier Shelf Expiration Date Model / Serial / Lot Vns Therapy Aspiresr Implanted:Qty: 1 on 09/09/2021 by Jared Varner MD at [facility] Left: Chest OTHER 04/03/2023 106 / [id number] / Description:BATTERY EXCHANGE Insurance MEDICARE MEDICAID [place] Advance Directives Documents on File Type Date Recorded Patient Catastrophe Claims Supervisor Expl anation Living Will 09/09/2021 7:20 AM DNR Care Teams Hotel Valet Attendant Relationship Specialty Start Date End Date Andreia Kiser DO [address] [place] [id number] PCP - General Neurology 07/24/21
--- OUTSIDE RECORDS SUMMARY | 2024-11-03 06:46 | XMS_ITS | Clinical Summary ---
Author Organization [facility] Address [address] [place] [address] Care Team Providers Care Concrete Batch Plant Operator Name Role Phone Unavailable Primary Care Provider [...] times daily Active Multiple Vitamins-Minera ls (THERAPEUTIC MULTIVITAMIN-PR NERALS) tablet Take 1 tablet by mouth [...] on file Medical Devices Implanted Type Area Hub Cutter Apprentice Device Identifier Shelf Expiration Date Model / Serial / Lot Generator Aspire Sr - [id number] Implanted:Qty: 1 on 05/12/2016 by Beni Martin MD at [facility] Neuro/Mary nt [employer] 01/06/2018 [id number] / [id number] / Insurance MEDICARE MEDICAID [place]
--- OUTSIDE RECORDS SUMMARY | 2024-11-03 06:46 | XMS_ITS | Clinical Summary ---
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
--- OUTSIDE RECORDS SUMMARY | 2024-11-03 06:46 | XMS_ITS | Clinical Summary ---
Author Organization [facility] Address [address] [place], [place] [id number] Care Team Providers Care Machine Packaging Technician Name Role Phone Rosario Shaw MD Primary Care Provider [phone] Social History Tobacco Use Types Packs/Day Years Used Date Smoking Tobacco: Never Assessed Sex and Gender Information Value Date Recorded Sex Assigned at Not on file Legal Sex Male 8:53 AM EST Gender Identity Not on file Sexual Orientation Not on file Plan of Treatment Not on file Insurance MEDICARE MEDICAID [place] Care Teams Machine Packaging Technician Relationship Specialty Start Date End Date Rosario Shaw MD [address] [place] [address] [facility] - General 07/28/00
--- OUTSIDE RECORDS SUMMARY | 2024-11-03 06:47 | XMS_ITS | CCD ---
Author Organization [facility] Care Team Providers Care Store Stock Associate Name Role Phone FAM ACEVEDO Primary Care [...] Mares DDS Unavailable Fam Acevedo MD Unavailable [phone] Unallocated , N[place] Provider Primary Care Provi [...] [amoxicillin-clav ulanate] Drug Allergy Unknown [facility] (17 sources) Phenytoin; Translations: [phenytoin] Drug Allergy 3 Unknown [facility] (20 sources) Promethazine; Translations: [promethazine] Drug Allergy 7 Unknown [facility] (14 sources) Phenytoin; Translations: [PHENYTOIN SODIUM EXTENDED] Drug Allergy 7 Unknown [facility] (14 sources) Amoxicillin-Pot Clavulanate; Translations: [AMOXICILLIN-POT CLAVULANATE] Propensity to adverse reactions to drug 7 Unknown [facility] (3 sources) 4-Aminobenzoic Acid; Translations: [PERTUSSIS VACCINES] Drug Allergy 5 [facility] Repository (1 source) Amoxicillin / Clavulanate Drug Allergy 4 [facility] (1 source) Levamisole Drug Allergy 4 [facility] Rep[facility] (1 source) metroNIDAZOLE Drug Allergy [facility] (1 source) Phenytoin Drug Allergy 4 [facility] (1 source) remdesivir (investigational use) Drug allergy (disorder) [facility] (9 sources) Amoxicillin Drug Allergy 3 Unknown [facility] (7 sources) Clavulanate Drug Allergy 3 Unknown [facility] Medications Current Medications Medication Drug Class(es) Dates Sig (Normalized) Sig (Original) Acetaminophen (10 sources) Start: 12-16-2022 acetaminophen Refills(s) 0 Start Date: 12/16/22 Status: Ordered Start: 03-28-2020 Acetaminophen 650 mg Suppository Active 650 MG [place] EVERY 4-6 HOURS as needed for Elevated Temp March 28, 2020 1:00am Start: 03-28-2020 Acetaminophen Active 650 MG [place] EVERY 4-6 HOURS March 28, 2020 1:00am [...] 10:24am 10MG RECTAL GEL, PATIENT TAKES IT [place] - wont let me save without route. Start: 03-28-2020 End: 07-06-2023 apply 10 mg rectal route every two hours Diazepam Active 5 MG PO Q2H July 06, 2023 10:24am 10MG RECTAL GEL, PATIENT TAKES IT [place] - wont let me save without route. [...] Ordered Normal saline (7 sources) Start: 07-05-2015 [place] Saline Nasal Gel Nasal, TID, Refill(s) 0, Dry nasal passages Start Date: 07/05/15 Status: Ordered [place] Saline Nasal Gel Nasally Active Nutritional Supplements [...] bid, Prophylaxis Start Date: 07/05/15 Status: Ordered [id number] oral powder for reconstitution (1 source) Start: 12-17-19 23 [id number] oral powder for reconstitution Start Date: 12/16/22 Status: Ordered polyethylene glycol 3350 65737 mg powder for oral solution (5 sources) [...] 0 Start Date: 10/22/21 Status: Ordered sennosides, group home 8.6 mg oral tablet (4 sources) Start: [...] sources) Start: 06-28-2023 Sodium Chlorid e-Aloe Vera ([place] Saline) gel Active 1 APPLIC TOPICAL Daily at bedtime as needed June 28, 2023 12:00am Start: 06-28-2023 Sodium Chlorid e-Aloe Vera ([place] Saline) gel Active 1 APPLIC TOPICAL Daily [...] 06-30-2013 Chronic Other aftercare (5 sources) Other 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 Normal [facility] Anesthesia Preprocedure Eval uationon 06-12-2024 Fixed Interest Dealer Authentication Interface Message Text ASA: 3 No [...] were discussed with the patient and/or legal high school admissions representative. The risks, benefits and alternatives were reviewed. Questions regarding anesthesia were answered. Patient and/or legal high school admissions representative knows such anesthetics and procedures may be performed by Resident physicians, Certified Anesthesiologist Assistants, or Certified Nurse Anesthetists under the supervision of a physician. The patient /or the patient's legal high school admissions representative agree with the plan for anesthesia. Comment: Consent obtained from patient's mother over the phone. Also explained what to expect from anesthesia to patient's caregiver from [facility] [employer] Social History Socioeconomic History Marital status: Single Social History Narrative Resident at [employer]. Mom is guardian CBC 06/02/2024 [...] Vitamin D3 125 mcg, DAILY Normal [facility] Anesthesia Transfer Of [facility] n 06-12-2024 Fixed Interest Dealer Authentication Interface Message Text Patient taken to [...] 1 extraction; Surgeon: Ap Scott DDS; [facility]: [facility] [place]; Service: Dental Allergies: Promethazine, Amoxicillin-pot clavulanate, Pertussis [...] report was received. ILIANA Clements Normal [facility] Blood Attestationon 06-12-19 Fixed Interest Dealer Authentication Interface Message Text Blood Attestation: REFUSAL OF BLOOD OR BLOOD COMPONENTS: The patient and/or legal high school admissions representative has been explained the need for transfusion of blood and/or blood components. The risks, benefits and alternatives have been explained. Questions concerning the transfusion of blood or blood components have been asked and answered. The patient and/or legal high school admissions representative have REFUSED TO CONSENT transfusion of blood or blood products. PER PATIENT'S MOTHER Normal [facility] Brief Operative Noteon 06-12 Fixed Interest Dealer Authentication Interface Message Text Brief Operative Note PHE OR 3 Parish Lopez 44 year old male Surgical Contact Serial Number: [id number] Preoperative Diagnosis: Pre-op Diagnosis * Caries [K02.9] Mental disability COPD Hyperthyroidism Seizures HLD GERD Postoperative Diagnosis: Mental disability COPD Hyperthyroidism Seizures HLD GERD Procedures: Full mouth x-rays [75683] Comprehensive Exam [08187] Dental prophylaxis [06573] Surgeon(s): Surgeon(s): Ap Scott DDS Staff: Hand Candy Dipper Nurse: Felisha Moore Anesthesia: General Anesthesiologist: Blake [...] Thompson DDS 06/12/2024 7:03 AM Normal [facility] OP Noteon 06-12-2024 Fixed Interest Dealer Authentication Interface Message Text Operative Note PHE OR 3 Parish Lopez 44 year old male Surgical Contact Serial Number: [id number] Preoperative Diagnosis: Pre-op Diagnosis * Caries [K02.9] Mental disability COPD Hyperthyroidism Seizures HLD GERD Postoperative Diagnosis: Mental Disability COPD Hyperthyroidism Seizures HLD GERD Procedures: Full mouth x-rays [12839] Comprehensive Exam [05879] Dental prophylaxis [88039] Surgeon: Ap Scott DDS Bell Clerk Surgeon: Hansel Burgess DDS; Beatris Thompson DMD [...] Thompson DDS 06/12/2024 7:07 AM Normal [facility] Progress Noteson 06-12-2024 Fixed Interest Dealer Authentication Interface Message Text ----- Wednesday, June 12, 2024 at 8:41:56 AM ----- ----- Provider: [id number] - Ap Adams DDS -- Clinic: [facility] ----- [facility], pt is ready for tx. [place], only scaling was done. __ Operative Note PHE OR 3 Parish Lopez 44 year old male Surgical Contact Serial Number: [id number] Preoperative Diagnosis: Pre-op Diagnosis * Caries [K02.9] Mental disability COPD Hyperthyroidism Seizures HLD GERD Postoperative Diagnosis: Mental Disability COPD Hyperthyroidism Seizures HLD GERD Procedures: Full mouth x-rays [48620] Comprehensive Exam [68062] Dental prophylaxis [86085] Surgeon: Ap Scott DDS Bell Clerk Surgeon: Hansel Burgess DDS; Beatris Thompson DMD [...] 2024 at 8:46:14 AM ----- ----- Provider: [id number] Ap Adams DDS -- Clinic: [facility] ----- Normal [facility] EKG 12 LEAD - PERFORMon 05-20 Diagnosis Sinus tachycardia Possible Left atrial enlargement Nonspecific T wave abnormality Abnormal ECG Confirmed by JOSSELIN NIETO ([id number]) on 06/05/2024 9:00:17 PM [facility] P wave Atrium by EKG 122 BPM [facility] P wave axis 21 degrees [facility] P-R Interval 156 ms [facility] Q-T interval 302 ms [facility] Q-T interval corrected 430 ms [facility] QRS axis 0 degrees [facility] QRS duration 78 ms [facility] T wave axis -4 degrees [facility] Telephone Encounteron 2024 Fixed Interest Dealer Authentication Interface Message Text Informed Consent for dental surgery AND Anesthesia consent obtained and scanned into [employer] [place]. Scheduled for surgery 06/12/2024. Normal [facility] Addendum Noteon 06-02-2024 Fixed Interest Dealer Authentication Interface Message Text Addended by: BOYD HARRY on: 06/02/2024 05:54 PM Modules accepted: Orders Normal [facility] BASIC METABOLIC PANELon 05-20 Anion gap [Moles/Vol] 18 mmol/L Normal 10-20 [facility] Comment on above: Performed By: #### C H8 ####[facility] [id number] [place], [address] Calcium [Mass/Vol] 10.5 mg/dL High 8.6-10.3 [facility] Comment on above: Performed By: #### C H8 ####[facility] [id number] [place], [place], Chloride [Moles/Vol] 109 mmol/L High 98-[address] [facility] Comment on above: Performed By: #### C H8 ####[facility] [id number] [place], [place], CO2 [Moles/Vol] 22 mmol/L Normal 21-31 The [facility] Comment on above: Performed By: #### C H8 ####S PATHOLOGY [id number] [place], [place], Creatinine [Mass/Vol] 0.61 mg/dL Low 0.70-1.30 [facility] Comment on above: Performed By: #### C H8 ####S PATHOLOGY [id number] [place], [place], ESTIMATED GFR (CKD-EPI) 121 mL/min/1.73sqm Normal >=60 The [facility] Comment on above: Result Comment: [...] Inclusion of Race in Diagnosing Kidney Disease. [place] Journal of Kidney Diseases 2021;79(2):268-88.e1. 2. N Engl J Med 1 Vol. 385 Issue 19 Pages 8758-3090 Performed By: #### C H8 ####[facility] [id number] [place], [place], Glucose [Mass/Vol] 126 mg/dL High 74-109 The [facility] Comment on above: Performed By: #### C H8 ####[facility] [id number] [place], [place], Potassium [Moles/Vol] 4.8 mmol/L Normal 3.5-5.0 The [facility] Comment on above: Performed By: #### C H8 ####S PATHOLOGY [id number] [place], [place], Sodium [Moles/Vol] 144 mmol/L Normal 136-145 The [facility] Comment on above: Performed By: #### C H8 ####[facility] [id number] [place], [place], Urea nitrogen [Mass/Vol] 14 mg/dL Normal 7-25 The [facility] Comment on above: Performed By: #### C H8 ####S PATHOLOGY [id number] [place], [place], Basic metabolic 2000 panelon 06-02-2024 Anion [...] CKD-EPI (S/P/Bld) [Vol rate/Area] 121 - PINF [facility] Comment on above: 2020 CKD EPI Equatio [...] Inclusion of Race in Diagnosing Kidney Disease. [place] Journal of Kidney Diseases 2021;79(2):268-88.e1. 2. N Engl J Med 1 Vol. 385 Issue 19 Pages 9585-3963 Glucose [Mass/Vol] 126 mg/dL High 74 - 109 mg/dL [facility] Interpretation and review of laboratory results Abnormal [facility] Potassium [Moles/Vol] 4.8 mmol/L 3.5 - 5.0 mmol/L [facility] Sodium [Moles/Vol] 144 mmol/L 136 - 145 mmol/L [facility] Urea nitrogen [Mass/Vol] 14 mg/dL 7 - 25 mg/dL [facility] CBC panel Auto (Bld)on 06-02 Erythrocyte distribution width (RBC) [Ratio] 14.5 % 11.5 - 14.5 % [facility] Hematocrit (Bld) [Volume fraction] 42.5 % 41.0 - 53.0 % [facility] Hemoglobin (Bld) [Mass/Vol] 13.8 g/dL Low 13.9 - 16.3 g/dL [facility]ation [facility] of [facility] results Abnormal [facility] MCH (RBC) [Entitic mass] 30.7 pg 26.0 - 34.0 pg [facility] MCHC (RBC) [Mass/Vol] 32.4 g/dL 32.0 - 35.9 g/dL [facility] MCV (RBC) [Entitic vol] 95 fL 80 - 100 fL [facility] Platelet mean volume (Bld) [Entitic vol] 9.3 fL 7.5 - 11.2 fL [facility] Platelets (Bld) [#/Vol] 419 10*3/uL High 150 - 400 K/uL [facility] RBC (Bld) [#/Vol] 4.49 10*6/uL Low [facility] WBC (Bld) [#/Vol] 7 10*3/uL 4.5 - 11.5 K/uL [facility] COMPLETE BLOOD COUNTon 06-02 Erythrocyte distribution width (RBC) [Ratio] 14.5 % Normal 11.5-14.5 The [facility] Comment on above: Performed By: #### C BC #### [facility] [address] [place] [address], Hematocrit (Bld) [Volume fraction] 42.5 % Normal 41.0-53.0 The [facility] Comment on above: Performed By: #### C BC #### [facility] [address] [place], [place], Hemoglobin (Bld) [Mass/Vol] 13.8 g/dL Low 13.9-16.3 The [facility] Comment on above: Performed By: #### C BC #### [facility] [address] [place], [place], MCH (RBC) [Entitic mass] 30.7 pg Normal 26.0-34.0 [facility] Comment on above: Performed By: #### C BC #### [facility] [address] [place], [place], MCHC (RBC) [Mass/Vol] 32.4 g/dL Normal 32.0-35.9 [facility] Comment on above: Performed By: #### C BC #### S PATHOLOGY LABORATORY [address] [place], [place], MCV (RBC) [Entitic vol] 95 fL Normal 80-100 The [facility] Comment on above: Performed By: #### C BC #### S PATHOLOGY LABORATORY [address] [place], [place], Platelet mean volume (Bld) [Entitic vol] 9.3 fL Normal 7.5-11.2 The [facility] Comment on above: Performed By: #### C BC #### S PATHOLOGY LABORATORY [address] [place], [place], Platelets (Bld) [#/Vol] 419 10*3/uL High 150-400 The [facility] Comment on above: Performed By: #### C BC #### S PATHOLOGY LABORATORY [address] [place], [place], RBC (Bld) [#/Vol] 4.49 10*6/uL Low 4.50-5.90 The [facility] Comment on above: Performed By: #### C BC #### S PATHOLOGY LABORATORY [address] [place], [place], WBC (Bld) [#/Vol] 7.0 10*3/uL Normal 4.5-11.5 The [facility] Comment on above: Performed By: #### C BC #### [facility] [address] [place], [place], Patient Instructionson 06-02 Fixed Interest Dealer Authentication Interface Message Text RECOMMENDATIONS: Patient was [...] before surgery Boyd Harry MD Normal 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 Normal [facility] THYROXINE (T4), FREEon 06-02 Free T4 [Mass/Vol] 0.7 ng/dL 0.61 - 1. 12 ng/dL [facility] Interpretation and review of laboratory results Normal [facility] T4 F 0.70 ng/dL Normal 0.61-1.12 [facility] Comment on above: Performed By: #### T SH HS, T4 F #### [facility] [address] [place] [address], TSHon 06-02-2024 Interpretation and review of laboratory results Abnormal [facility] TSH Qn 0.229 m[IU]/L Low [facility] TSH 0.229 uIU/mL Low 0.450-5.330 [facility] Comment on above: Performed By: #### T SH HS, T4 F #### [facility] [address] [place], [place], XR Chest PA and Lateralon Greta [...] images and agree with the resident's interpretation. [facility] Study observation (narrative) [facility] XR Chest PA and LateralOrder ed By: Greta Heck on 06-02-2024 [facility] Work Phone: No Panel Informationon 05-31 [employer] Progress Noteson 04-25-2024 Fixed Interest Dealer Authentication Interface Message Text Parent/guardian/patie nt was contacted for PSE AND OR scheduled -- confirmed information with mom, also informed mom importance of receiving PSE call -- if not received surgery will be canceled. 06/12/2024 ----- Thursday, April 25, 2024 at 2:35:00 PM ----- ----- Provider: PEARL Ace, Dental-Sack Sorter -- Clinic: [place] ----- Normal [facility] No Panel Informationon 03-13 As in [facility] 0 12-16-2022 Ambulatory Visit [...] (oxcarbazepine 600 mg Tab) polyethylene glycol 3350 ([id number] oral powder for reconstitution) polyethylene glycol 3350 (polyethylene glycol 3350 17 gram packet) rifaximin (Xifaxan 550 mg oral tablet) senna (Senna 8.6 mg oral tablet) sodium chloride nasal ([place] Saline Nasal Gel) tamsulosin Discharge Vitals Temperature [...] Application T (more content not included)... Normal [facility] Patient Educationon 12-17-19 Patient Education Obstetrics and [...] provider. Document Revised: 08/14/2021 Document Reviewed: 08/14/2021 [employer] Patient Education ? 2022 [employer] Normal [facility] Physician Orderon 12-16-2022 Physician Order [id number] .[id number]:127 Normal [facility] RAD - Ultrasound Reporton RAD - Ultrasound Report [id number] .[id number]:127 Normal [facility] Urology Office/Clinic Noteon 12-16-2022 Urology Office/Clinic Note [...] of retractile testes. Pt currently resides in [facility]. CBC/CMP 08/01/22 1. Retractile testis (Q55.22: [...] Eye-Both, QID atorvastatin, 10 mg, Oral, Daily [place] Saline Nasal Gel, Nasal, TID azelastine nasal 137 mcg/inh spray, 2 spray(s), Nasal, As (more content not included)... Normal [facility] Comment on above: Result Comment: Elec tronically [...] GUANAKITO MEADE Date: 2022-08-04 18:50 Normal [facility] AMMONIAon 08-02-2022 Ammonia (P) [Moles/Vol] 87 umol/L Critically high - [facility] Comment on above: Performed By: #### B MP #### [facility] [address] [place] [address] Dr. Deepak Greenfield AMMONIAon 08-01-2022 Ammonia (P) [Moles/Vol] 42 umol/L Critically high - [facility] Comment on above: Performed By: #### M G, CMP #### [facility] [address] [place] [address] Dr. Deepak Greenfield CBC W MANUAL DIFFon 08-02-19 23 ATYPICAL LYMPH # 0.41 103/ul Normal The [facility] Comment on above: Performed By: #### M G, CMP #### [facility] [address] [place] [address] Dr. Deepak Greenfield ATYPICAL LYMPH % 7 % Normal The [facility] Comment on above: Performed By: #### M G, CMP #### [facility] [address] [place] [address] Dr. Deepak Greenfield BAND # 0.0 103/ul Normal 0.0-0.3 [facility] Comment on above: Performed By: #### M G, CMP #### [facility] [address] [place] [address] Dr. Deepak Greenfield BAND % 0 % Normal 0-5 [facility] Comment on above: Performed By: #### M G, CMP #### [facility] [address] [place] [address] Dr. Deepak Greenfield BASOM # 0.00 103/ul Normal 0.00-0.10 [facility] Comment on above: Performed By: #### M G, CMP #### [facility] [address] [place] [address] Dr. Deepak Greenfield BASOM % 0.0 % Critically low 0.2-2.0 [facility] Comment on above: Performed By: #### M G, CMP #### [facility] [address] [place] [address] Dr. Deepak Greenfield BLAST # Normal [facility] Comment on above: Performed By: #### M G, CMP #### [facility] [address] [place] [address] Dr. Deepak Greenfield BLAST % Normal [facility] Comment on above: Performed By: #### M G, CMP #### [facility] [address] [place] [address] Dr. Deepak Greenfield CORRECTED WBC Normal 4.0-11.0 [facility] Comment on above: Performed By: #### M G, CMP #### [facility] [address] [place] [address] Dr. Deepak Greenfield EOS # 0.06 103/ul Normal 0.00-0.70 [facility] Comment on above: Performed By: #### M G, CMP #### [facility] [address] [place] [address] Dr. Deepak Greenfield EOS% 1.0 % Normal 0.9-7.0 [facility] Comment on above: Performed By: #### M G, CMP #### [facility] [address] [place] [address] Dr. Deepak Greenfield HCT 37.6 % Critically low 42.0-54.0 [facility] Comment on above: Performed By: #### M G, CMP #### [facility] [address] [place] [address] Dr. Deepak Greenfield HGB 12.3 g/dl Critically low 14.0-18.0 [facility] Comment on above: Performed By: #### M G, CMP #### [facility] [address] [place] [address] Dr. Deepak Greenfield LYMPHM # 1.91 103/ul Normal 1.20-3.80 [facility] Comment on above: Performed By: #### M G, CMP #### [facility] [address] [address] [address] Deepak Greenfield LYMPHM% 33.0 % Normal 20.5-60.0 [facility] Comment on above: Performed By: #### M G, CMP #### [facility] [address] [place] [address] Dr. Deepak Greenfield MCH 31.7 pg Normal 25.9-34.0 [facility] Comment on above: Performed By: #### M G, CMP #### [facility] [address] [place] [address] Dr. Deepak Greenfield MCHC 32.7 g/dl Normal 29.9-35.2 [facility] Comment on above: Performed By: #### M G, CMP #### [facility] [address] [place] [address] Dr. Deepak Greenfield MCV 96.9 fL Critically high 80.0-94.0 The [facility] Comment on above: Performed By: #### M G, CMP #### [facility] [address] [place] [address] Dr. Deepak Greenfield METAMYELOCYTE # Normal [facility] Comment on above: Performed By: #### M G, CMP #### [facility] [address] [place] [address] Dr. Deepak Greenfield METAMYELOCYTE % Normal [facility] Comment on above: Performed By: #### M G, CMP #### [facility] [address] [place] [address] Dr. Deepak Greenfield MONOM# 0.29 103/ul Critically low 0.30-0.80 [facility] Comment on above: Performed By: #### M G, CMP #### [facility] [address] [place] [address] Dr. Deepak Greenfield MONOM% 5.0 % Normal 1.7-12.0 [facility] Comment on above: Performed By: #### M G, CMP #### [facility] [address] [place] [address] Dr. Deepak Greenfield MPV 11.0 fL Normal 9.5-13.5 [facility] Comment on above: Performed By: #### M G, CMP #### [facility] [address] [address] [address] Deepak Greenfield MYELOCYTE # Normal [facility] Comment on above: Performed By: #### M G, CMP #### [facility] [address] [address] [address] Deepak Greenfield MYELOCYTE % Normal [facility] Comment on above: Performed By: #### M G, CMP #### [facility] [address] [place] [address] Dr. Deepak Greenfield NRBC Normal [facility] Comment on above: Performed By: #### M G, CMP #### [facility] [address] [address] [address] Deepak Greenfield PLT 208 103/ul Normal 150-450 [facility] Comment on above: Performed By: #### M G, CMP #### [facility] [address] [place] [address] Dr. Deepak Greenfield RBC 3.88 106/ul Critically low 4.70-6.10 [facility] Comment on above: Performed By: #### M G, CMP #### [facility] [address] [place] [address] Dr. Deepak Greenfield RDW 12.9 % Normal 11.0-15.0 [facility] Comment on above: Performed By: #### M G, CMP #### [facility] [address] [place] [address] Dr. Deepak Greenfield SEG # 3.13 103/ul Normal 1.40-6.50 [facility] Comment on above: Performed By: #### M G, CMP #### [facility] [address] [place] [address] Dr. Deepak Greenfield SEG % 54.0 % Normal 43.0-75.0 [facility] Comment on above: Performed By: #### M G, CMP #### [facility] [address] [place] [address] Dr. Deepak Greenfield STOMATOCYTES 3+ Normal [facility] Comment on above: Performed By: #### M G, CMP #### [facility] [address] [address] [address] Deepak Greenfield WBC 5.8 103/ul Normal 4.0-11.0 [facility] Comment on above: Performed By: #### M G, CMP #### [facility] [address] [address] [address] Deepak Greenfield PROF CHEM 8 (BAS METB)on Anion gap [Moles/Vol] 16.1 mmol/L Normal [facility] Comment on above: Performed By: #### B MP #### [facility] [address] [address] [address] Deepak Greenfield Calcium [Mass/Vol] 9.3 mg/dL Normal 8.5-10.1 [facility] Comment on above: Performed By: #### B MP #### [facility] [address] [place] [address] Dr. Deepak Greenfield Chloride [Moles/Vol] 105 mmol/L Normal 98-107 [facility] Comment on above: Performed By: #### B MP #### [facility] [address] [address] [address] Deepak Greenfield CO2 [Moles/Vol] 27.6 mmol/L Normal 21.0-32.0 [facility] Comment on above: Performed By: #### B MP #### [facility] [address] [address] [address] Deepak Greenfield Creatinine [Mass/Vol] 0.96 mg/dL Normal 0.70-1.30 [facility] Comment on above: Performed By: #### B MP #### [facility] [address] [place] [address] Dr. Deepak Greenfield EGFR-AF BRAZILIAN >60 Normal >=60 [facility] Comment on above: Performed By: #### B MP #### [facility] [address] [address] [address] Deepak Greenfield EGFR-NON AF BRAZILIAN >60 Normal >=60 [facility] Comment on above: Performed By: #### B MP #### [facility] [address] [address] [address] Deepak Greenfield Glucose [Mass/Vol] 160 mg/dL Critically high 74-106 [facility] Comment on above: Performed By: #### B MP #### [facility] [address] [address] [address] Deepak Greenfield Potassium [Moles/Vol] 3.7 mmol/L Normal 3.5-5.1 [facility] Comment on above: Performed By: #### B MP #### [facility] [address] [address] [address] Deepak Greenfield Sodium [Moles/Vol] 145 mmol/L Normal 136-145 [facility] Comment on above: Performed By: #### B MP #### [facility] [address] [address] [address] Deepak Greenfield Urea nitrogen [Mass/Vol] 5.0 mg/dL Critically low 7.0-18.0 [facility] Comment on above: Performed By: #### B MP #### [facility] [address] [address] [address] Deepak Greenfield Urea nitrogen/Creatinine [Mass ratio] 5.2 mg/mg Normal [facility] Comment on above: Performed By: #### B MP #### [facility] [address] [address] [address] Deepak Greenfield AMMONIAon 07-31-2022 Ammonia (P) [Moles/Vol] 94 umol/L Critically high 11-32 [facility] Comment on above: Performed By: #### M G, CMP #### [facility] [address] [address] [address] Deepak Greenfield CBC AUTO DIFFon 07-31-2022 BASO # 0.0 103/ul Normal 0.0-0.1 [facility] Comment on above: Performed By: #### B MP #### [facility] [address] [place] [address] Dr. Deepak Greenfield Basophils/100 WBC (Bld) 0.1 % Critically low 0.2-2.0 [facility] Comment on above: Performed By: #### B MP #### [facility] [address] [address] [address] Deepak Greenfield EO # 0.0 103/ul Normal 0.0-0.7 [facility] Comment on above: Performed By: #### B MP #### [facility] [address] [place] [address] Dr. Deepak Greenfield Eosinophils/100 WBC (Bld) 0.0 % Critically low 0.9-7.0 [facility] Comment on above: Performed By: #### B MP #### [facility] [address] [place] [address] Dr. Deepak Greenfield Erythrocyte distribution width (RBC) [Ratio] 13.1 % Normal 11.0-15.0 [facility] Comment on above: Performed By: #### B MP #### [facility] [address] [place] [address] Dr. Deepak Greenfield Hematocrit (Bld) [Volume fraction] 32.4 % Critically low 42.0-54.0 [facility] Comment on above: Performed By: #### B MP #### [facility] [address] [place] [address] Dr. Deepak Greenfield Hemoglobin (Bld) [Mass/Vol] 10.9 g/dL Critically low 14.0-18.0 [facility] Comment on above: Performed By: #### B MP #### [facility] [address] [place] [address] Dr. Deepak Greenfield IG # 0.02 10e3/ul Normal 0.00-0.03 [facility] Comment on above: Performed By: #### B MP #### [facility] [address] [place] [address] Dr. Deepak Greenfield IG % 0.3 % Normal 0.0-0.5 [facility] Comment on above: Performed By: #### B MP #### [facility] [address] [place] [address] Dr. Deepak Greenfield LYMPH # 2.7 103/ul Normal 1.2-3.8 [facility] Comment on above: Performed By: #### B MP #### [facility] [address] [place] [address] Dr. Deepak Greenfield Lymphocytes/100 WBC (Bld) 38.9 % Normal 20.5-60.0 [facility] Comment on above: Performed By: #### B MP #### [facility] [address] [place] [address] Dr. Deepak Greenfield MANUAL DIFF REQ NO Normal [facility] Comment on above: Performed By: #### B MP #### [facility] [address] [place] [address] Dr. Deepak Greenfield MCH (RBC) [Entitic mass] 32.3 pg Normal 25.9-34.0 [facility] Comment on above: Performed By: #### B MP #### [facility] [address] [place] [address] Dr. Deepak Greenfield MCHC (RBC) [Mass/Vol] 33.6 g/dL Normal 29.9-35.2 [facility] Comment on above: Performed By: #### B MP #### [facility] [address] [place] [address] Dr. Deepak Greenfield MCV (RBC) [Entitic vol] 96.1 fL Critically high 80.0-94.0 [facility] Comment on above: Performed By: #### B MP #### [facility] [address] [place] [address] Dr. Deepak Greenfield MONO # 0.3 103/ul Normal 0.3-0.8 [facility] Comment on above: Performed By: #### B MP #### [facility] [address] [place] [address] Dr. Deepak Greenfield Monocytes/100 WBC (Bld) 4.9 % Normal 1.7-12.0 [facility] Comment on above: Performed By: #### B MP #### [facility] [address] [place] [address] Dr. Deepak Greenfield NEUT # 3.9 103/ul Normal 1.4-6.5 [facility] Comment on above: Performed By: #### B MP #### [facility] [address] [address] [address] Deepak Greenfield Neutrophils/100 WBC (Bld) 55.8 % Normal 43.0-75.0 [facility] Comment on above: Performed By: #### B MP #### [facility] [address] [address] [address] Deepak Greenfield Platelet mean volume (Bld) [Entitic vol] 9.7 fL Normal 9.5-13.5 [facility] Comment on above: Performed By: #### B MP #### [facility] [address] [address] [address] Deepak Greenfield PLT 296 103/ul Normal 150-450 [facility] Comment on above: Performed By: #### B MP #### [facility] [address] [place] [address] Dr. eDepak Greenfield RBC 3.37 106/ul Critically low 4.70-6.10 [facility] Comment on above: Performed By: #### B MP #### [facility] [address] [address] [address] Deepak Greenfield WBC 7.0 103/ul Normal 4.0-11.0 [facility] Comment on above: Performed By: #### B MP #### [facility] [address] [place] [address] Dr. Deepak Greenfield PROF CHEM 8 (BAS METB)on Anion gap [Moles/Vol] 14.9 mmol/L Normal [facility] Comment on above: Performed By: #### C BC #### [facility] [address] [place] [address] Dr. Deepak Greenfield Calcium [Mass/Vol] 8.8 mg/dL Normal 8.5-10.1 [facility] Comment on above: Performed By: #### C BC #### [facility] [address] [address] [address] Deepak Greenfield Chloride [Moles/Vol] 105 mmol/L Normal 98-107 [facility] Comment on above: Performed By: #### C BC #### [facility] [address] [address] [address] Deepak Greenfield CO2 [Moles/Vol] 26.4 mmol/L Normal 21.0-32.0 [facility] Comment on above: Performed By: #### C BC #### [facility] [address] [address] [address] Deepak Greenfield Creatinine [Mass/Vol] 0.70 mg/dL Normal 0.70-1.30 [facility] Comment on above: Performed By: #### C BC #### [facility] [address] [address] [address] Deepak Greenfield EGFR-AF BRAZILIAN >60 Normal >=60 [facility] Comment on above: Performed By: #### C BC #### [facility] [address] [place] [address] Dr. Deepak Greenfield EGFR-NON AF BRAZILIAN >60 Normal >=60 [facility] Comment on above: Performed By: #### C BC #### [facility] [address] [address] [address] Deepak Greenfield Glucose [Mass/Vol] 129 mg/dL Critically high 74-106 [facility] Comment on above: Performed By: #### C BC #### [facility] [address] [place] [address] Dr. Deepak Greenfield Potassium [Moles/Vol] 4.3 mmol/L Normal 3.5-5.1 [facility] Comment on above: Performed By: #### C BC #### [facility] [address] [address] [address] Deepak Greenfield Sodium [Moles/Vol] 142 mmol/L Normal 136-145 [facility] Comment on above: Performed By: #### C BC #### [facility] [address] [place] [address] Dr. Deepak Greenfield Urea nitrogen [Mass/Vol] 6.0 mg/dL Critically low 7.0-18.0 [facility] Comment on above: Performed By: #### C BC #### [facility] [address] [place] [address] Dr. Deepak Greenfield Urea nitrogen/Creatinine [Mass ratio] 8.6 mg/mg Normal [facility] Comment on above: Performed By: #### C BC #### [facility] [address] [place] [address] Dr. Deepak Greenfield AMMONIAon 07-30-2022 Ammonia (P) [Moles/Vol] 64 umol/L Critically high 11-32 [facility] Comment on above: Performed By: #### C BC #### [facility] [address] [place] [address] Dr. Deepak Greenfield CBC AUTO DIFFon 07-30-2022 BASO # 0.0 103/ul Normal 0.0-0.1 [facility] Comment on above: Performed By: #### I NFLUAB #### [facility] [address] [place] [address] Dr. Deepak Greenfield Basophils/100 WBC (Bld) 0.0 % Critically low 0.2-2.0 [facility] Comment on above: Performed By: #### I NFLUAB #### [facility] [address] [place] [address] Dr. Deepak Greenfield EO # 0.0 103/ul Normal 0.0-0.7 [facility] Comment on above: Performed By: #### I NFLUAB #### [facility] [address] [place] [address] Dr. Deepak Greenfield Eosinophils/100 WBC (Bld) 0.0 % Critically low 0.9-7.0 [facility] Comment on above: Performed By: #### I NFLUAB #### [facility] [address] [place] [address] Dr. Deepak Greenfield Erythrocyte distribution width (RBC) [Ratio] 13.1 % Normal 11.0-15.0 [facility] Comment on above: Performed By: #### I NFLUAB #### [facility] [address] [place] [address] Dr. Deepak Greenfield Hematocrit (Bld) [Volume fraction] 31.4 % Critically low 42.0-54.0 [facility] Comment on above: Performed By: #### I NFLUAB #### [facility] [address] [place] [address] Dr. Deepak Greenfield Hemoglobin (Bld) [Mass/Vol] 10.5 g/dL Critically low 14.0-18.0 [facility] Comment on above: Performed By: #### I NFLUAB #### [facility] [address] [place] [address] Dr. Deepak Greenfield IG # 0.01 10e3/ul Normal 0.00-0.03 [facility] Comment on above: Performed By: #### I NFLUAB #### [facility] [address] [place] [address] Dr. Deepak Greenfield IG % 0.2 % Normal 0.0-0.5 [facility] Comment on above: Performed By: #### I NFLUAB #### [facility] [address] [place] [address] Dr. Deepak Greenfield LYMPH # 1.5 103/ul Normal 1.2-3.8 [facility] Comment on above: Performed By: #### I NFLUAB #### [facility] [address] [place] [address] Dr. Deepak Greenfield Lymphocytes/100 WBC (Bld) 27.5 % Normal 20.5-60.0 [facility] Comment on above: Performed By: #### I NFLUAB #### [facility] [address] [place] [address] Dr. Deepak Greenfield MANUAL DIFF REQ NO Normal [facility] Comment on above: Performed By: #### I NFLUAB #### [facility] [address] [place] [address] Dr. Deepak Greenfield MCH (RBC) [Entitic mass] 32.4 pg Normal 25.9-34.0 [facility] Comment on above: Performed By: #### I NFLUAB #### [facility] [address] [place] [address] Dr. Deepak Greenfield MCHC (RBC) [Mass/Vol] 33.4 g/dL Normal 29.9-35.2 [facility] Comment on above: Performed By: #### I NFLUAB #### [facility] [address] [address] [address] Deepak Greenfield MCV (RBC) [Entitic vol] 96.9 fL Critically high 80.0-94.0 [facility] Comment on above: Performed By: #### I NFLUAB #### [facility] [address] [address] [address] Deepak Greenfield MONO # 0.2 103/ul Critically low 0.3-0.8 [facility] Comment on above: Performed By: #### I NFLUAB #### [facility] [address] [address] [address] Deepak Greenfield Monocytes/100 WBC (Bld) 2.9 % Normal 1.7-12.0 [facility] Comment on above: Performed By: #### I NFLUAB #### [facility] [address] [place] [address] Dr. Deepak Greenfield NEUT # 3.8 103/ul Normal 1.4-6.5 [facility] Comment on above: Performed By: #### I NFLUAB #### [facility] [address] [place] [address] Dr. Deepak Greenfield Neutrophils/100 WBC (Bld) 69.4 % Normal 43.0-75.0 [facility] Comment on above: Performed By: #### I NFLUAB #### [facility] [address] [place] [address] Dr. Deepak Greenfield Platelet mean volume (Bld) [Entitic vol] 9.4 fL Critically low 9.5-13.5 [facility] Comment on above: Performed By: #### I NFLUAB #### [facility] [address] [place] [address] Dr. Deepak Greenfield PLT 256 103/ul Normal 150-450 [facility] Comment on above: Performed By: #### I NFLUAB #### [facility] [address] [place] [address] Dr. Deepak Greenfield RBC 3.24 106/ul Critically low 4.70-6.10 [facility] Comment on above: Performed By: #### I NFLUAB #### [facility] [address] [place], [place] [address] Dr. Deepak Greenfield WBC 5.5 103/ul Normal 4.0-11.0 [facility] Comment on above: Performed By: #### I NFLUAB #### [facility] [address] [place], [place] [address] Dr. Deepak Greenfield Coding Summary.on 07-30-2022 Coding Summary. CD:[id number] W w+PGhlYWQ+DP3FKEZgC44 omZBpcW7dJ7EOMBqXCeqk BOQEURdQSsVknmIdFC9nm XNjZXJu IC8+PI0nHDUaFutooWFpn 3A6lDY7T80vaq2tGFdsaN V8HQRzBxKnauunq9ulkZd 6IDcuNmluOyBt YSXqnU65ESA6eQ14Me74w VQosCUio7pylKy1UbHvPR HvDLF9qAyyQYydo6EyDNS qP14rbBQwl1Q5 VPGsdLxwhSVxMyZezGO0y V5rYChvjydlh1kgnllxCe i9jh88nBMaq1Y8cCX6W1E aukQ3PIIwnKKs EroxxPBIcK4fqpkvb0psa gbrDcJnDZKoQOe8BFu6OT VzaLftCvCxOL18SID7BHM lclGiU3NdIOZd fUmnJkU8w1V8Kf4OG3FXE ojgM1ERNTPJGAwldUQ+PC 38kb21J3MsLjxmJpb9KJE oQNO8cSG8vV4v BFSsMAtvj1T1kLD8N6Dwr kAsnp7gs4twZGVhSDovJ5 1neLGgz1Q1XDIalFE6OIH gtOhiMmVwpC30 Oyc+ZMQghUifs4VdLmfrg 6emo7hdhGq1ZgrgPLByab LijJukQMS9n5HwTf9pQRS kmXQ2gKY7yJ4p TbGsYmQ5VSndX019YmNnr DCnWgsvY50xE5QbkAP+PH UbKmu5ERJdlPsyKG6bS2W hZGRpbmctbGVm aAnfLR5jCZEskgttMFJjv Y7jFVFqB4l5ZcDuZoC5PH swA3NuBGBjkjquPg22hJ3 qYsIlNuC6FLbb E3JxrxD8PMAstEJyFOnjA WS5O26iq3A7XYMkSVZzJN N1gSB3mL6pyVngxrevfDQ mdDsgdmVydGlj DRcrTPrtT823SSHlhKhgV kNvZGluZyBEYXRlOiAgMD QvMTMvMjAyMzwvdGQ+PHR mAFW4yCiqKSFb bVPjRAjnZk0ywYkzfWiwR G8dXNXmonhmPINkbA6pPE IzvOPckLibYQ3yTKRrpgv ey132UnLrLIN9 OBOoiPSmK7QefO7iAxUvZ QLzJRNwB4IpiBImHQqsA2 54XUwwUzM2NMNnbgVsE2B sLWFsaWduOiB0 f8X1Gf0Aq8TpnstjW3Ikm YUaXfWwIkaqKDl3N3CtBl wvdHI+ZB77UPMdNU57DKd 8LQM0cZubNTey EHRsZ3YamJ6xBqYrHHVyR GRkOyc+PHRhYmxlIHdpZH RoPScxMDAlJyBzdHlsZT0 cKk0sZQSpVFDe fLzpxHExEbVzh4urGHQjM IegWR7soKjfC8TwxTV1GO Eol1u8Gx01A90iM2BxnPP +JVAvkGM4fHN9 kZ1bFcVqEpF7EEjmX546I lFlmWOvVzurf7wvu5burC k2XsD3EHXmlvUoaYibHZU 4i3EgYq91J24a IHdpZHRoPSIxNSUiIHZhb Alucw4muI5vIb0+PGNvbC Z2yNM1bM4yVbZhTiM3DFf hK608GaQeqWWi Jnhka9vnz7nwtVh2UxPdO BQzeuFeeNtwKWT0e9HsRj 56Z3GzxUeyr1QsQwj6sh8 1iKPxp8G2mLL6 M9UaTWWtessesFYzaCwoJ G6tXVYydmvdXEJkqD7kVJ StH6p2LgCdKcX5GPzrC6C zqcL5XJKzmNKo WBVumOADfD2bloufh2qrm dmcDmFvBSThAUq3ISd7ZK ZvdDngShVtJRN5SuK2OKE 4wFLrgT2sqNce hgionJ3wUvr+HBV0qDUfj IZWWR5sTdejvHW+PHRkIH Z3gPbwOAtbVPRtuU9rLOS aY3h2AtFtGeI8 PZikD6GgaoP5UQJqpYLuU LUuxOALuA1sdxgqi6iiya adNjBiFDQnTGc1DLy7WPB saWduOiBsZWZ0 SnN1BIQ0bFJdwV2zsHdhf xhphQ0bYka+QmlydGggRG O1YBs4O9AgNws6UUOxqWs mCX4vkYLePUqp Vq4ehCoeiIpuBP8pXYGmk annd180RiQyl1ahEUPifR OmKCbmPLD6Y27hq3U2MIU hSPKnDAT5hCV3 jY6mqCfqfmpqpONdzCtkh tEzoBctNNokBBiiZ467ES HrqNhbNnJgQHy2A0WrZus 0APFozJjjLQ8w qLWwJRvnLk3siXrvpScgJ W4aMQTstwalj446ByGbh4 onVFUfhPGnXTcwIZD2P25 wx4P3FIWoSWTx WVU4oHF9pN7rhDwctcezw GVmdDsgdmVydGljYWwtYW kwP245CDEstBbfZsGxaQy 3Z0YhSzp3GTTh cPicNF4uxXMaETrdOt7hz SgaaHviQJ8yHYTwpldqr9 58YiWvz6tfJQSpuOPzDJu zEUR1H83kg7Y8 PWEdXRLcKFT0nNK2qO7go GlnbjogbGVmdDsgdmVydG rbAKryQAkhA097LJTbsXb nPlBhdGllbnQg WFsxGEf9H5SwZsscdGQ+P P25PKMsIS81mORlpXWso6 fegAk3GfNwYAQrISN7zSp yUTenk3XeSCAc G64mwIIvj5K9BJBmmSoff ARpSjNxeDX4fS9tAGptcv rwy2gsgujrGbwql4vkqh1 7cZ20S22vLBnr ZHRoPSIzMCUiIHZhbGlnb o6gaS0zUb9+BVXqiSR5uD S1oQ4hUVDfIcH4DLsiT90 9InRvcCIvPjxj u2ewu1dkqCb2DmO9IHSdr mDojZeoMTQ6s6VkKj50M1 9sIHdpZHRoPSIyMCUiIHZ tfPiqbk2uwU4t Ii8+WWXnwBM3oFW4hG3tI oFiNdP2WFkxW780HjRzlC OoShyzU46gZ2CgwUX+PHR vUnl2PEYhbOdh WT3upGEzIZhpNh9rPXC0L zKrNaBiNBdvW7OoLHYucx yojqugsDE4ONEjPTEuaQ0 4Pg3uoWqlJDKj cONFzV5jhouec6xznbvhH xOvXXVjTIt1NGo1LTVxiI wtUaMcYKG5LeT6MQV6vMT bbN9yaLfgvzdl aT0gW0NxYFUifvagTc36p T1yCbAhZeL9CXkpBar+U0 6RCVKXHVPDXNWHMnTAPE0 6DF54yLBrj9K5 zOO0C7PwLJAfvdffvntda KZ4QMRzHNQfxG09sTZgIZ jzEt6fb0D9s661JUCqJAH ghO65Jx7kcLhe XMMahNSIkD4oenejx4mgu gfpXqJyMCTsOYb5PRp0DM IxeItkFzQeCQP2MdT0LIR 6xQOtfW2otKww hfsumZ5uApp+MTAvMTYvM Iz0OLhyuSY+NINwYBL5dG waJIxyUJWctH4oNNCxU8b 0SsCaJeF0LMdt F5KuRNHkicdkTx08uK7dZ rWlCwE4UFnqP3UvrbM4GV TiwAMbHMycTKO0I83md0K 7LZBqSECeGOZ1 hKX2mL4oxJrrhvsczDTsf DsgdmVydGljYWwtYWxpZ2 46IHRvcDsnPjQyIFllYXJ jXI02NW11iAMv m9G1iEQ9H1BmSWJhqhpyb ixsgIM1YRTyIZDwcM45jD WhJXohBa0wv1J2r092CPC aIRPzgW80Rq6l yZbxYYQkdAYLvP1asykzn 1hfaotsGhSwYFDuZUz2OC d1TCWzkEzeDeDoCCB4MpE 7WFD6gVEtpG1e iZnrgasbqE0wFdk+TWFsZ TwvdGQ+NKQyWVT9hVdkFZ pnDVAtxW6jFEGnA8s8DwP sStB4WWndX3Af TSTeqcnaBr76iA1cApIhK yY1NNhfC5QmfuP3WGUxcF LtESwoSEP0F88on1Z5QNP xTWDdKGE7wXZ1 jC9vlMezpbxbyRXqzEljy sXdwRvbNZurKXnaH303MA AkmNslJb89lAVyvBsfbyO 6G9BbMwzzvNB+ VV43OARsCY97cBKxuWAar 5xyzAi3IyUbXHCgOFT4eH vgYUyfg0CtXMUdN72jzPW my6E3SROtzWgb dYLeUmFzwBE0aT8kZGbdf zpwb9ztncedQkdfl6osqv 63dJ75E21mLYaoTNRbNME zMCUiIHZhbGln bt6ptL4rAc9+ZXVopYX4q UF5mI2bOwRdRaZ4EBygE6 84YdAxvJPmOqwdb3fpf9l uhRs1BdLgQXTp uyVtvGyrQUG6g4JzJl27T 29sIHdpZHRoPSIyMCUiIH SveVgema7kzS0qEb8+PC9 qg5mojd07yF13 dHI+VEVzRJM4aIjhRZqdE MKyaF1pJFrkUbF5EJCoVo NgyT55eQHmDEkeSv6xiJk mgVdfPN4fTLCs vedel723JbDzm5avGQOzs OLkCNuvBUI9T37yx8T1NA KuUYWbPSN9aWZ3iF8evGc nbjogbGVmdDsg roZpeHawBRpeBTqtH284U JXkxSkeHxVluPHhC9owhb CNBW5vUnjwnLC+PHRkIHN 0eWxlPSdwYWRk yO1qHIAmC9x8NvLdPuS8I FkcY7MstyB1MPInvNEtVM MtqFGFvO4hsbddj9gimsd gIzAwMDAwMDt0 TSn5DSHinTttZkAxYUE4S jU9PGZ3sFShxF8tbLmmvv befJ2xRar+RklOOjwvdGQ +GQXdHEU5vZlj KTmiYUUkmL0zIXDbJ4w6T vQnKhU0WOezZ2CqmqZ6HR NwjBSuLUUiySCSlX8bqvm ri6vzudsbCeCc WHHfTJw8YPx4BAYbxUrmU rBlNSB8GeJ6COD2sHSfvW 7beTkbjzfldH2aBqa+TVJ OOjwvdGQ+PHRk VDY3sEirQMfyEPCsvD8cC LSjT9k7WzIzMuF1QRvrT3 QujgA7KTLgcDLoEJIyrIM ZgJ0dqyerk8yq xnxrHiMhYNYcEOg4MQa0X ZWlrEklTkNwXWM2IpE4SY S7qVIdzF5qqIhymwjjwD8 wOyc+BTI1MYX7 GW17AB09R6NxXxlzpLGkk +PHRhYmxlIHdpZHRoPS xtKZAbKuAtkEdmGD0sOk4 yZGVyLWNvbGxh cHNlOiBj (more content not included)... Normal [facility] PROF CHEM 8 (BAS METB)on Anion gap [Moles/Vol] 8.3 mmol/L Normal [facility] Comment on above: Performed By: #### I NFLUAB #### [facility] [address] [address] [address] Deepak Greenfield Calcium [Mass/Vol] 8.5 mg/dL Normal 8.5-10.1 [facility] Comment on above: Performed By: #### I NFLUAB #### [facility] [address] [address] [address] Deepak Greenfield Chloride [Moles/Vol] 104 mmol/L Normal 98-107 [facility] Comment on above: Performed By: #### I NFLUAB #### [facility] [address] [address] [address] Deepak Greenfield CO2 [Moles/Vol] 30.0 mmol/L Normal 21.0-32.0 [facility] Comment on above: Performed By: #### I NFLUAB #### [facility] [address] [address] [address] Deepak Greenfield Creatinine [Mass/Vol] 0.46 mg/dL Critically low 0.70-1.30 [facility] Comment on above: Performed By: #### I NFLUAB #### [facility] [address] [address] [address] Deepak Greenfield EGFR-AF BRAZILIAN >60 Normal >=60 [facility] Comment on above: Performed By: #### I NFLUAB #### [facility] [address] [address] [address] Deepak Greenfield EGFR-NON AF BRAZILIAN >60 Normal >=60 [facility] Comment on above: Performed By: #### I NFLUAB #### [facility] [address] [address] [address] Deepak Greenfield Glucose [Mass/Vol] 152 mg/dL Critically high 74-106 [facility] Comment on above: Performed By: #### I NFLUAB #### [facility] [address] [place] [address] Dr. Deepak Greenfield Potassium [Moles/Vol] 4.3 mmol/L Normal 3.5-5.1 [facility] Comment on above: Performed By: #### I NFLUAB #### [facility] [address] [address] [address] Deepak Greenfield Sodium [Moles/Vol] 138 mmol/L Normal 136-145 [facility] Comment on above: Performed By: #### I NFLUAB #### [facility] [facility] [address] [address] [address] Deepak Greenfield Urea nitrogen [Mass/Vol] 9.0 mg/dL Normal 7.0-18.0 [facility] Comment on above: Performed By: #### I NFLUAB #### [facility] [address] [address] [address] Deepak Greenfield Urea nitrogen/Creatinine [Mass ratio] 19.6 mg/mg Normal [facility] Comment on above: Performed By: #### I NFLUAB #### [facility] [address] [address] [address] eDepak Greenfield AMMONIAon 07-29-2022 Ammonia (P) [Moles/Vol] 69 umol/L Critically high -32 [facility] Comment on above: Performed By: #### A MM #### [facility] [address] [place] [address] Dr. Deepak Greenfield CBC AUTO DIFFon 07-29-2022 BASO # 0.0 103/ul Normal 0.0-0.1 [facility] Comment on above: Performed By: #### M G, CMP #### [facility] [address] [place] [address] Dr. Deepak Greenfield Basophils/100 WBC (Bld) 0.2 % Normal 0.2-2.0 [facility] Comment on above: Performed By: #### M G, CMP #### [facility] [address] [place] [address] Dr. Deepak Greenfield EO # 0.0 103/ul Normal 0.0-0.7 [facility] Comment on above: Performed By: #### M G, CMP #### [facility] [address] [place] [address] Dr. Deepak Greenfield Eosinophils/100 WBC (Bld) 0.0 % Critically low 0.9-7.0 [facility] Comment on above: Performed By: #### M G, CMP #### [facility] [address] [place] [address] Dr. Deepak Greenfield Erythrocyte distribution width (RBC) [Ratio] 13.2 % Normal 11.0-15.0 [facility] Comment on above: Performed By: #### M G, CMP #### [facility] [address] [place] [address] Dr. Deepak Greenfield Hematocrit (Bld) [Volume fraction] 33.1 % Critically low 42.0-54.0 [facility] Comment on above: Performed By: #### M G, CMP #### [facility] [address] [place] [address] Dr. Deepak Greenfield Hemoglobin (Bld) [Mass/Vol] 10.8 g/dL Critically low 14.0-18.0 [facility] Comment on above: Performed By: #### M G, CMP #### [facility] [address] [place] [address] Dr. Deepak Greenfield IG # 0.04 10e3/ul Critically high 0.00-0.03 [facility] Comment on above: Performed By: #### M G, CMP #### [facility] [address] [place] [address] Dr. Deepak Greenfield IG % 0.5 % Normal 0.0-0.5 [facility] Comment on above: Performed By: #### M G, CMP #### [facility] [address] [place] [address] Dr. Deepak Greenfield LYMPH # 1.1 103/ul Critically low 1.2-3.8 [facility] Comment on above: Performed By: #### M G, CMP #### [facility] [address] [place] [address] Dr. Deepak Greenfield Lymphocytes/100 WBC (Bld) 13.6 % Critically low 20.5-60.0 [facility] Comment on above: Performed By: #### Karishma G, CMP #### [facility] [address] [place] [address] Dr. Deepak Greenfield MANUAL DIFF REQ NO Normal [facility] Comment on above: Performed By: #### M G, CMP #### [facility] [address] [place] [address] Dr. Deepak Greenfield MCH (RBC) [Entitic mass] 32.2 pg Normal 25.9-34.0 [facility] Comment on above: Performed By: #### M G, CMP #### [facility] [address] [place] [address] Dr. Deepak Greenfield MCHC (RBC) [Mass/Vol] 32.6 g/dL Normal 29.9-35.2 [facility] Comment on above: Performed By: #### M G, CMP #### [facility] [address] [place] [address] Dr. Deepak Greenfield MCV (RBC) [Entitic vol] 98.8 fL Critically high 80.0-94.0 [facility] Comment on above: Performed By: #### M G, CMP #### [facility] [address] [place] [address] Dr. Deepak Greenfield MONO # 0.3 103/ul Normal 0.3-0.8 [facility] Comment on above: Performed By: #### M G, CMP #### [facility] [address] [place] [address] Dr. Deepak Greenfield Monocytes/100 WBC (Bld) 3.8 % Normal 1.7-12.0 [facility] Comment on above: Performed By: #### M G, CMP #### [facility] [address] [place] [address] Dr. Deepak Greenfield NEUT # 6.7 103/ul Critically high 1.4-6.5 [facility] Comment on above: Performed By: #### M G, CMP #### [facility] [address] [place] [address] Dr. Deepak Greenfield Neutrophils/100 WBC (Bld) 81.9 % Critically high 43.0-75.0 [facility] Comment on above: Performed By: #### M G, CMP #### [facility] [address] [place] [address] Dr. Deepak Greenfield Platelet mean volume (Bld) [Entitic vol] 9.6 fL Normal 9.5-13.5 [facility] Comment on above: Performed By: #### M G, CMP #### [facility] [address] [place] [address] Dr. Deepak Greenfield PLT 257 103/ul Normal 150-450 [facility] Comment on above: Performed By: #### M G, CMP #### [facility] [address] [place] [address] Dr. Deepak Greenfield RBC 3.35 106/ul Critically low 4.70-6.10 [facility] Comment on above: Performed By: #### M G, CMP #### [facility] [address] [place] [address] Dr. Deepak Greenfield WBC 8.2 103/ul Normal 4.0-11.0 [facility] Comment on above: Performed By: #### M G, CMP #### [facility] [address] [place] [address] Dr. Deepak Greenfield LACTATE/LACTIC ACIDon 2022 Lactate [Moles/Vol] 1.1 mmol/L Normal 0.4-2.0 [facility] Comment on above: Performed By: #### I NFLUAB #### [facility] [address] [address] [address] Deepak Greenfield PROF CHEM 8 (BAS METB)on Anion gap [Moles/Vol] 9.4 mmol/L Normal [facility] Comment on above: Performed By: #### I NFLUAB #### [facility] [address] [address] [address] Deepak Greenfield Calcium [Mass/Vol] 8.0 mg/dL Critically low 8.5-10.1 [facility] Comment on above: Performed By: #### I NFLUAB #### [facility] [address] [address] [address] Deepak Greenfield Chloride [Moles/Vol] 105 mmol/L Normal 98-107 [facility] Comment on above: Performed By: #### I NFLUAB #### [facility] [address] [address] [address] Deepak Greenfield CO2 [Moles/Vol] 30.7 mmol/L Normal 21.0-32.0 [facility] Comment on above: Performed By: #### I NFLUAB #### [facility] [address] [address] [address] Deepak Greenfield Creatinine [Mass/Vol] 0.66 mg/dL Critically low 0.70-1.30 [facility] Comment on above: Performed By: #### I NFLUAB #### [facility] [address] [address] [address] Deepak Greenfield EGFR-AF BRAZILIAN >60 Normal >=60 [facility] Comment on above: Performed By: #### I NFLUAB #### [facility] [address] [address] [address] Deepak Greenfield EGFR-NON AF BRAZILIAN >60 Normal >=60 [facility] Comment on above: Performed By: #### I NFLUAB #### [facility] [address] [address] [address] Deepak Greenfield Glucose [Mass/Vol] 177 mg/dL Critically high 74-106 [facility] Comment on above: Performed By: #### I NFLUAB #### [facility] [address] [address] [address] Deepak Greenfield Potassium [Moles/Vol] 4.1 mmol/L Normal 3.5-5.1 [facility] Comment on above: Performed By: #### I NFLUAB #### [facility] [address] [place] [address] Dr. Deepak Greenfield Sodium [Moles/Vol] 141 mmol/L Normal 136-145 [facility] Comment on above: Performed By: #### I NFLUAB #### [facility] [address] [place] [address] Dr. Deepak Greenfield Urea nitrogen [Mass/Vol] 9.0 mg/dL Normal 7.0-18.0 [facility] Comment on above: Performed By: #### I NFLUAB #### [facility] [address] [address] [address] Deepak Greenfield Urea nitrogen/Creatinine [Mass ratio] 13.6 mg/mg Normal [facility] Comment on above: Performed By: #### I NFLUAB #### [facility] [address] [place] [address] Dr. Deepak Greenfield AMMONIAon 07-28-2022 Ammonia (P) [Moles/Vol] 68 umol/L Critically high 11-32 [facility] Comment on above: Performed By: #### B MP #### [facility] [address] [place] [address] Dr. Deepak Greenfield CBC AUTO DIFFon 07-28-2022 BASO # 0.0 103/ul Normal 0.0-0.1 [facility] Comment on above: Performed By: #### C BC #### [facility] [address] [place] [address] Dr. Deepak Greenfield Basophils/100 WBC (Bld) 0.3 % Normal 0.2-2.0 [facility] Comment on above: Performed By: #### C BC #### [facility] [address] [place] [address] Dr. Deepak Greenfield EO # 0.0 103/ul Normal 0.0-0.7 [facility] Comment on above: Performed By: #### C BC #### [facility] [address] [place] [address] Dr. Deepak Greenfield Eosinophils/100 WBC (Bld) 0.0 % Critically low 0.9-7.0 [facility] Comment on above: Performed By: #### C BC #### [facility] [address] [place] [address] Dr. Deepak Greenfield Erythrocyte distribution width (RBC) [Ratio] 13.3 % Normal 11.0-15.0 [facility] Comment on above: Performed By: #### C BC #### [facility] [address] [place] [address] Dr. Deepak Greenfield Hematocrit (Bld) [Volume fraction] 37.0 % Critically low 42.0-54.0 [facility] Comment on above: Performed By: #### C BC #### [facility] [address] [place] [address] Dr. Deepak Greenfield Hemoglobin (Bld) [Mass/Vol] 12.3 g/dL Critically low 14.0-18.0 [facility] Comment on above: Performed By: #### C BC #### [facility] [address] [place] [address] Dr. Deepak Greenfield IG # 0.06 10e3/ul Critically high 0.00-0.03 [facility] Comment on above: Performed By: #### C BC #### [facility] [address] [place] [address] Dr. Deepak Greenfiled IG % 0.5 % Normal 0.0-0.5 [facility] Comment on above: Performed By: #### C BC #### [facility] [address] [place] [address] Dr. Deepak Greenfield LYMPH # 2.9 103/ul Normal 1.2-3.8 [facility] Comment on above: Performed By: #### C BC #### [facility] [address] [place] [address] Dr. Deepak Greenfield Lymphocytes/100 WBC (Bld) 23.5 % Normal 20.5-60.0 [facility] Comment on above: Performed By: #### C BC #### [facility] [address] [place] [address] Dr. Deepak Greenfield MANUAL DIFF REQ NO Normal [facility] Comment on above: Performed By: #### C BC #### [facility] [address] [place] [address] Dr. Deepak Greenfield MCH (RBC) [Entitic mass] 32.4 pg Normal 25.9-34.0 [facility] Comment on above: Performed By: #### C BC #### [facility] [address] [place] [address] Dr. Deepak Greenfield MCHC (RBC) [Mass/Vol] 33.2 g/dL Normal 29.9-35.2 [facility] Comment on above: Performed By: #### C BC #### [facility] [address] [place] [address] Dr. Deepak Greenfield MCV (RBC) [Entitic vol] 97.4 fL Critically high 80.0-94.0 [facility] Comment on above: Performed By: #### C BC #### [facility] [address] [place] [address] Dr. Deepak Greenfield MONO # 1.0 103/ul Critically high 0.3-0.8 [facility] Comment on above: Performed By: #### C BC #### [facility] [address] [place] [address] Dr. Deepak Greenfield Monocytes/100 WBC (Bld) 8.0 % Normal 1.7-12.0 [facility] Comment on above: Performed By: #### C BC #### [facility] [address] [place] [address] Dr. Deepak Greenfield NEUT # 8.3 103/ul Critically high 1.4-6.5 [facility] Comment on above: Performed By: #### C BC #### [facility] [address] [address] [address] Deepak Greenfield Neutrophils/100 WBC (Bld) 67.7 % Normal 43.0-75.0 [facility] Comment on above: Performed By: #### C BC #### [facility] [address] [address] [address] Deepak Greenfield Platelet mean volume (Bld) [Entitic vol] 9.7 fL Normal 9.5-13.5 [facility] Comment on above: Performed By: #### C BC #### [facility] [address] [address] [address] Deepak Greenfield PLT 325 103/ul Normal 150-450 [facility] Comment on above: Performed By: #### C BC #### [facility] [address] [place] [address] Dr. Deepak Greenfield RBC 3.80 106/ul Critically low 4.70-6.10 [facility] Comment on above: Performed By: #### C BC #### [facility] [address] [place] [address] Dr. Deepak Greenfield WBC 12.2 103/ul Critically high 4.0-11.0 [facility] Comment on above: Performed By: #### C BC #### [facility] [address] [place] [address] Dr. Deepak Greenfield CULTURE BLOODon 07-28-2022 Microscopic examination of blood, culture Culture Observations: NO GROWTH AT 5 DAYS. Normal [facility] Comment on above: Performed By: #### B LDCX2 #### [facility] [address] [place] [address] Dr. Deepak Greenfield Microscopic examination of blood, culture Culture Observations: NO GROWTH AT 5 DAYS. Normal [facility] Comment on above: Performed By: #### C BC #### [facility] [address] [place] [address] Dr. Deepak Greenfield LACTATE/LACTIC ACIDon 2022 Lactate [Moles/Vol] 2.5 mmol/L Critically high 0.4-2.0 [facility] Comment on above: Performed By: #### C VDTB #### [facility] [address] [place] [address] Dr. Deepak Greenfield PROF 14(COMP METB)on 023 Albumin [Mass/Vol] 3.1 g/dL Critically low 3.4-5.0 [facility] Comment on above: Performed By: #### C BC #### [facility] [address] [place] [address] Dr. Deepak Greenfield Albumin/Globulin [Mass ratio] 0.7 {ratio} Normal [facility] Comment on above: Performed By: #### C BC #### [facility] [address] [place] [address] Dr. Deepak Greenfield ALP [Catalytic activity/Vol] 51 U/L Normal 46-116 [facility] Comment on above: Performed By: #### C BC #### [facility] [address] [place] [address] Dr. Deepak Greenfield ALT [Catalytic activity/Vol] 106 U/L Critically high 16-63 [facility] Comment on above: Performed By: #### C BC #### [facility] [address] [place] [address] Dr. Deepak Greenfield Anion gap [Moles/Vol] 14.2 mmol/L Normal [facility] Comment on above: Performed By: #### C BC #### [facility] [address] [place] [address] Dr. Deepak Greenfield AST [Catalytic activity/Vol] 81 U/L Critically high 15-37 [facility] Comment on above: Performed By: #### C BC #### [facility] [address] [place] [address] Dr. Deepak Greenfield Bilirubin [Mass/Vol] 0.4 mg/dL Normal 0.2-1.0 [facility] Comment on above: Performed By: #### C BC #### [facility] [address] [place] [address] Dr. Deepak Greenfield Calcium [Mass/Vol] 8.9 mg/dL Normal 8.5-10.1 [facility] Comment on above: Performed By: #### C BC #### [facility] [address] [address] [address] Deepak Greenfield Chloride [Moles/Vol] 105 mmol/L Normal 98-107 [facility] Comment on above: Performed By: #### C BC #### [facility] [address] [address] [address] Deepak Greenfield CO2 [Moles/Vol] 27.9 mmol/L Normal 21.0-32.0 [facility] Comment on above: Performed By: #### C BC #### [facility] [address] [place] [address] Dr. Deepak Greenfield Creatinine [Mass/Vol] 0.77 mg/dL Normal 0.70-1.30 [facility] Comment on above: Performed By: #### C BC #### [facility] [address] [place] [address] Dr. Deepak Greenfield EGFR-AF BRAZILIAN >60 Normal >=60 [facility] Comment on above: Performed By: #### C BC #### [facility] [address] [place] [address] Dr. Deepak Greenfield EGFR-NON AF BRAZILIAN >60 Normal >=60 [facility] Comment on above: Performed By: #### C BC #### [facility] [address] [place] [address] Dr. Deepak Greenfield Globulin (S) [Mass/Vol] 4.3 g/dL Normal [facility] Comment on above: Performed By: #### C BC #### [facility] [address] [place] [address] Dr. Deepak Greenfield Glucose [Mass/Vol] 162 mg/dL Critically high 74-106 [facility] Comment on above: Performed By: #### C BC #### [facility] [address] [place] [address] Dr. Deepak Greenfield Potassium [Moles/Vol] 4.1 mmol/L Normal 3.5-5.1 [facility] Comment on above: Performed By: #### C BC #### [facility] [address] [place] [address] Dr. Deepak Greenfield Protein [Mass/Vol] 7.4 g/dL Normal 6.4-8.2 [facility] Comment on above: Performed By: #### C BC #### [facility] [address] [place] [address] Dr. Deepak Greenfield Sodium [Moles/Vol] 143 mmol/L Normal 136-145 [facility] Comment on above: Performed By: #### C BC #### [facility] [address] [place] [address] Dr. Deepak Greenfield Urea nitrogen [Mass/Vol] 12.0 mg/dL Normal 7.0-18.0 [facility] Comment on above: Performed By: #### C BC #### [facility] [address] [place] [address] Dr. Deepak Greenfield Urea nitrogen/Creatinine [Mass ratio] 15.6 mg/mg Normal [facility] Comment on above: Performed By: #### C BC #### [facility] [address] [place] [address] Dr. Deepak Greenfield RESPIRATORY PANEL PLUSon Adenovirus Not detected Normal NOT DETECTED [facility] Comment on above: Performed By: #### B MP #### [facility] [address] [place] [address] Dr. Deepak Murphy. Parapertusis Not detected Normal NOT DETECTED [facility] Comment on above: Performed By: #### B MP #### [facility] [address] [place] [address] Dr. Deepak Greenfield B. Pertussis Not detected Normal NOT DETECTED [facility] Comment on above: Performed By: #### B MP #### [facility] [address] [place] [address] Dr. Deepak Greenfield Chlamydia Pneumoniae Not detected Normal NOT DETECTED [facility] Comment on above: Performed By: #### B MP #### [facility] [address] [place] [address] Dr. Deepak Greenfield Coronavirus 229E Not detected Normal NOT DETECTED [facility] Comment on above: Performed By: #### B MP #### [facility] [address] [place] [address] Dr. Deepak Greenfield Coronavirus HKU1 Not detected Normal NOT DETECTED [facility] Comment on above: Performed By: #### B MP #### [facility] [address] [address] [address] Deepak Greenfield Coronavirus NL63 Not detected Normal NOT DETECTED [facility] Comment on above: Performed By: #### B MP #### [facility] [address] [place] [address] Dr. Deepak Greenfield Coronavirus OC43 Not detected Normal NOT DETECTED [facility] Comment on above: Performed By: #### B MP #### [facility] [address] [place] [address] Dr. Deepak Greenfield Influenza A H1 Not detected Normal NOT DETECTED [facility] Comment on above: Performed By: #### B MP #### [facility] [address] [place] [address] Dr. Deepak Greenfield Influenza A H1 2009 Not detected Normal NOT DETECTED [facility] Comment on above: Performed By: #### B MP #### [facility] [address] [place] [address] Dr. Deepak Greenfield Influenza A H3 Not detected Normal NOT DETECTED [facility] Comment on above: Performed By: #### B MP #### [facility] [address] [place] [address] Dr. Deepak Greenfield Influenza B Not detected Normal NOT DETECTED [facility] Comment on above: Performed By: #### B MP #### [facility] [address] [place] [address] Dr. Deepak Greenfield Metapneumovirus Detected Abnormal NOT DETECTED [facility] Comment on above: Performed By: #### B MP #### [facility] [address] [place] [address] Dr. Deepak Greenfield Mycoplas. Pneumoniae Not detected Normal NOT DETECTED [facility] Comment on above: Performed By: #### B MP #### [facility] [address] [place] [address] Dr. Deepak Greenfield Parainfluenza 1 Not detected Normal NOT DETECTED [facility] Comment on above: Performed By: #### B MP #### [facility] [address] [place] [address] Dr. Deepak Greenfield Parainfluenza 2 Not detected Normal NOT DETECTED [facility] Comment on above: Performed By: #### B MP #### [facility] [address] [place] [address] Dr. Deepak Greenfield Parainfluenza 3 Not detected Normal NOT DETECTED [facility] Comment on above: Performed By: #### B MP #### [facility] [address] [place] [address] Dr. Deepak Greenfield Parainfluenza 4 Not detected Normal NOT DETECTED [facility] Comment on above: Performed By: #### B MP #### [facility] [address] [place] [address] Dr. Deepak Greenfield Rhino/Enterovirus Not detected Normal NOT DETECTED [facility] Comment on above: Performed By: #### B MP #### [facility] [address] [place] [address] Dr. Deepak Greenfield RP2 Header 1 RESPIRATORY PANEL: VIRUSES Normal [facility] Comment on above: Performed By: #### B MP #### [facility] [address] [place] [address] Dr. Deepak Greenfield RP2 Header 2 RESPIRATORY PANEL: BACTERIA Normal [facility] Comment on above: Performed By: #### B MP #### [facility] [address] [place] [address] Dr. Deepak Greenfield RSV Not detected Normal NOT DETECTED [facility] Comment on above: Performed By: #### B MP #### [facility] [address] [place] [address] Dr. Deepak Greenfield SARS-CoV-2 (COVID-19) RNA CINDY+probe Ql (Unsp spec) Not detected Normal NOT DETECTED [facility] Comment on above: Performed By: #### B MP #### [facility] [address] [place] [address] Dr. Deepak Greenfield XR CHEST 1 Von [...] PEREZ Date: 2022-07-28 20:23 Normal [facility] AMMONIAon 07-27-2022 Ammonia (P) [Moles/Vol] 76 umol/L Critically high 11-32 [facility] Comment on above: Performed By: #### M G, CMP #### [facility] [address] [place] [address] Dr. Deepak Greenfield CBC W MANUAL DIFFon 07-28-19 23 ATYPICAL LYMPH # Normal [facility] Comment on above: Performed By: #### M G, CMP #### [facility] [address] [place] [address] Dr. Deepak Greenfield ATYPICAL LYMPH % Normal [facility] Comment on above: Performed By: #### M G, CMP #### [facility] [address] [place] [address] Dr. Deepak Greenfield BAND # 0.4 103/ul Critically high 0.0-0.3 [facility] Comment on above: Performed By: #### M G, CMP #### [facility] [address] [place] [address] Dr. Deepak Greenfield BAND % 4 % Normal 0-5 [facility] Comment on above: Performed By: #### M G, CMP #### [facility] [address] [place] [address] Dr. Deepak Greenfield BASOM # 0.00 103/ul Normal 0.00-0.10 [facility] Comment on above: Performed By: #### M G, CMP #### [facility] [address] [place] [address] Dr. Deepak Greenfield BASOM % 0.0 % Critically low 0.2-2.0 [facility] Comment on above: Performed By: #### M G, CMP #### [facility] [address] [place] [address] Dr. Deepak Greenfield BLAST # Normal [facility] Comment on above: Performed By: #### M G, CMP #### [facility] [address] [place] [address] Dr. Deepak Greenfield BLAST % Normal [facility] Comment on above: Performed By: #### M G, CMP #### [facility] [address] [place] [address] Dr. Deepak Greenfield CORRECTED WBC Normal 4.0-11.0 [facility] Comment on above: Performed By: #### M G, CMP #### [facility] [address] [place] [address] Dr. Deepak Greenfield EOS # 0.00 103/ul Normal 0.00-0.70 [facility] Comment on above: Performed By: #### M G, CMP #### [facility] [address] [place] [address] Dr. Deepak Greenfield EOS% 0.0 % Critically low 0.9-7.0 [facility] Comment on above: Performed By: #### M G, CMP #### [facility] [address] [place] [address] Dr. Deepak Greenfield HCT 29.6 % Critically low 42.0-54.0 [facility] Comment on above: Performed By: #### M G, CMP #### [facility] [address] [place] [address] Dr. Deepak Greenfield HGB 10.4 g/dl Critically low 14.0-18.0 [facility] Comment on above: Performed By: #### M G, CMP #### [facility] [address] [address] [address] Deepak Greenfield LYMPHM # 0.71 103/ul Critically low 1.20-3.80 [facility] Comment on above: Performed By: #### M G, CMP #### [facility] [address] [address] [address] Deepak Greenfield LYMPHM% 8.0 % Critically low 20.5-60.0 [facility] Comment on above: Performed By: #### M G, CMP #### [facility] [address] [address] [address] Deepak Greenfield MCH 33.0 pg Normal 25.9-34.0 [facility] Comment on above: Performed By: #### M G, CMP #### [facility] [address] [place] [address] Dr. Deepak Greenfield MCHC 35.1 g/dl Normal 29.9-35.2 [facility] Comment on above: Performed By: #### M G, CMP #### [facility] [address] [address] [address] Deepak Greenfield MCV 94.0 fL Normal 80.0-94.0 [facility] Comment on above: Performed By: #### M G, CMP #### [facility] [address] [place] [address] Dr. Deepak Greenfield METAMYELOCYTE # Normal [facility] Comment on above: Performed By: #### M G, CMP #### [facility] [address] [address] [address] Deepak Greenfield METAMYELOCYTE % Normal [facility] Comment on above: Performed By: #### M G, CMP #### [facility] [address] [address] [address] Deepak Greenfield MONOM# 0.71 103/ul Normal 0.30-0.80 [facility] Comment on above: Performed By: #### M G, CMP #### [facility] [address] [address] [address] Deepak Greenfield MONOM% 8.0 % Normal 1.7-12.0 [facility] Comment on above: Performed By: #### M G, CMP #### [facility] [address] [address] [address] Deepak Greenfield MPV 9.6 fL Normal 9.5-13.5 [facility] Comment on above: Performed By: #### M G, CMP #### [facility] [address] [address] [address] Deepak Greenfield MYELOCYTE # Normal [facility] Comment on above: Performed By: #### M G, CMP #### [facility] [address] [place] [address] Dr. Deepak Greenfield MYELOCYTE % Normal [facility] Comment on above: Performed By: #### M G, CMP #### [facility] [address] [place] [address] Dr. Deepak Greenfield NRBC Normal [facility] Comment on above: Performed By: #### M G, CMP #### [facility] [address] [address] [address] Deepak Greenfield PLT 267 103/ul Normal 150-450 [facility] Comment on above: Performed By: #### M G, CMP #### [facility] [address] [place] [address] Dr. Deepak Greenfield RBC 3.15 106/ul Critically low 4.70-6.10 [facility] Comment on above: Performed By: #### M G, CMP #### [facility] [address] [place] [address] Dr. Deepak Greenfield RDW 12.9 % Normal 11.0-15.0 [facility] Comment on above: Performed By: #### M G, CMP #### [facility] [address] [place] [address] Dr. Deepak Greenfield SEG # 7.12 103/ul Critically high 1.40-6.50 [facility] Comment on above: Performed By: #### M G, CMP #### [facility] [address] [place] [address] Dr. Deepak Greenfield SEG % 80.0 % Critically high 43.0-75.0 [facility] Comment on above: Performed By: #### M G, CMP #### [facility] [address] [place] [address] Dr. Deepak Greenfield WBC 8.9 103/ul Normal 4.0-11.0 [facility] Comment on above: Performed By: #### M G, CMP #### [facility] [address] [address] [address] Deepak Greenfield PROF CHEM 8 (BAS METB)on Anion gap [Moles/Vol] 12.4 mmol/L Normal [facility] Comment on above: Performed By: #### C BC #### [facility] [address] [place] [address] Dr. Deepak Greenfield Calcium [Mass/Vol] 8.2 mg/dL Critically low 8.5-10.1 [facility] Comment on above: Performed By: #### C BC #### [facility] [address] [place] [address] Dr. Deepak Greenfield Chloride [Moles/Vol] 101 mmol/L Normal 98-107 [facility] Comment on above: Performed By: #### C BC #### [facility] [address] [place] [address] Dr. Deepak Greenfield CO2 [Moles/Vol] 25.0 mmol/L Normal 21.0-32.0 [facility] Comment on above: Performed By: #### C BC #### [facility] [address] [place] [address] Dr. Deepak Greenfield Creatinine [Mass/Vol] 0.53 mg/dL Critically low 0.70-1.30 [facility] Comment on above: Performed By: #### C BC #### [facility] [address] [place] [address] Dr. Deepak Greenfield EGFR-AF BRAZILIAN >60 Normal >=60 [facility] Comment on above: Performed By: #### C BC #### [facility] [address] [place] [address] Dr. Deepak Greenfield EGFR-NON AF BRAZILIAN >60 Normal >=60 [facility] Comment on above: Performed By: #### C BC #### [facility] [address] [address] [address] Deepak Greenfield Glucose [Mass/Vol] 161 mg/dL Critically high 74-106 [facility] Comment on above: Performed By: #### C BC #### [facility] [address] [address] [address] Deepak Greenfield Potassium [Moles/Vol] 4.4 mmol/L Normal 3.5-5.1 [facility] Comment on above: Performed By: #### C BC #### [facility] [address] [address] [address] Deepak Greenfield Sodium [Moles/Vol] 134 mmol/L Critically low 136-145 [facility] Comment on above: Performed By: #### C BC #### [facility] [address] [address] [address] Deepak Greenfield Urea nitrogen [Mass/Vol] 13.0 mg/dL Normal 7.0-18.0 [facility] Comment on above: Performed By: #### C BC #### [facility] [address] [address] [address] Deepak Greenfield Urea nitrogen/Creatinine [Mass ratio] 24.5 mg/mg Normal [facility] Comment on above: Performed By: #### C BC #### [facility] [address] [address] [address] Deepak Greenfield AMMONIAon 07-26-2022 Ammonia (P) [Moles/Vol] 56 umol/L Critically high 11-32 [facility] Comment on above: Performed By: #### M G, CMP #### [facility] [address] [address] [address] Deepak Greenfield CARDIAC BEATRIS ADMITon 023 CK [Catalytic activity/Vol] 83 U/L Normal 39-308 [facility] Comment on above: Performed By: #### B MP #### [facility] [address] [address] [address] Deepak Greenfield CK.MB [Mass/Vol] 0.86 ng/mL Normal <=3.60 [facility] Comment on above: Performed By: #### B MP #### [facility] [address] [place] [address] Dr. Deepak Greenfield HSTROP 7.4 pg/mL Normal 4.0-76.1 [facility] Comment on above: Result Comment: CUT- OFF POINTS HAVE BEEN ESTABLISHED BASED ON THE FOURTH UNIVERSAL DEFINITIONS OF MYOCARDIAL INFARCTION. THE UPPER REFERENCE LIMIT (URL) OF TROPONIN, DEFINED THE 99TH PERCENTILE OF cTnI DISTRIBUTION IN A REFERENCE POPULATION, HAS BEEN CONFIRMED THE DECISION THRESHOLD FOR NV DIAGNOSIS. Performed By: #### B MP #### [facility] [address] [address] [address] Deepak Greenfield VALE 46 ng/mL Normal 16-96 [facility] Comment on above: Performed By: #### B MP #### [facility] [address] [place] [address] Dr. Deepak Greenfield CBC AUTO DIFFon 07-26-2022 BASO # 0.1 103/ul Normal 0.0-0.1 [facility] Comment on above: Performed By: #### M G, CMP #### [facility] [address] [place] [address] Dr. Deepak Greenfield Basophils/100 WBC (Bld) 0.5 % Normal 0.2-2.0 [facility] Comment on above: Performed By: #### M G, CMP #### [facility] [address] [place] [address] Dr. Deepak Greenfield EO # 0.2 103/ul Normal 0.0-0.7 [facility] Comment on above: Performed By: #### M G, CMP #### [facility] [address] [place] [address] Dr. Deepak Greenfield Eosinophils/100 WBC (Bld) 2.1 % Normal 0.9-7.0 [facility] Comment on above: Performed By: #### M G, CMP #### [facility] [address] [place] [address] Dr. Deepak Greenfield Erythrocyte distribution width (RBC) [Ratio] 13.2 % Normal 11.0-15.0 [facility] Comment on above: Performed By: #### M G, CMP #### [facility] [address] [place] [address] Dr. Deepak Greenfield Hematocrit (Bld) [Volume fraction] 36.7 % Critically low 42.0-54.0 [facility] Comment on above: Performed By: #### M G, CMP #### [facility] [address] [place] [address] Dr. Deepak Greenfield Hemoglobin (Bld) [Mass/Vol] 12.4 g/dL Critically low 14.0-18.0 [facility] Comment on above: Performed By: #### M G, CMP #### [facility] [address] [place] [address] Dr. Deepak Greenfield IG # 0.04 10e3/ul Critically high 0.00-0.03 [facility] Comment on above: Performed By: #### M G, CMP #### [facility] [address] [place] [address] Dr. Deepak Greenfield IG % 0.4 % Normal 0.0-0.5 [facility] Comment on above: Performed By: #### M G, CMP #### [facility] [address] [place] [address] Dr. Deepak Greenfield LYMPH # 1.7 103/ul Normal 1.2-3.8 [facility] Comment on above: Performed By: #### M G, CMP #### [facility] [address] [place] [address] Dr. Deepak Greenfield Lymphocytes/100 WBC (Bld) 15.6 % Critically low 20.5-60.0 [facility] Comment on above: Performed By: #### M G, CMP #### [facility] [address] [place] [address] Dr. Deepak Greenfield MANUAL DIFF REQ NO Normal [facility] Comment on above: Performed By: #### M G, CMP #### [facility] [address] [place] [address] Dr. Deepak Greenfield MCH (RBC) [Entitic mass] 32.5 pg Normal 25.9-34.0 [facility] Comment on above: Performed By: #### M G, CMP #### [facility] [address] [place] [address] Dr. Deepak Greenfield MCHC (RBC) [Mass/Vol] 33.8 g/dL Normal 29.9-35.2 [facility] Comment on above: Performed By: #### M G, CMP #### [facility] [address] [place] [address] Dr. Deepak Greenfield MCV (RBC) [Entitic vol] 96.3 fL Critically high 80.0-94.0 [facility] Comment on above: Performed By: #### M G, CMP #### [facility] [address] [place] [address] Dr. Deepak Greenfield MONO # 1.4 103/ul Critically high 0.3-0.8 [facility] Comment on above: Performed By: #### M G, CMP #### [facility] [address] [place] [address] Dr. Deepak Greenfield Monocytes/100 WBC (Bld) 12.8 % Critically high 1.7-12.0 [facility] Comment on above: Performed By: #### M G, CMP #### [facility] [address] [place] [address] Dr. Deepak Greenfield NEUT # 7.4 103/ul Critically high 1.4-6.5 [facility] Comment on above: Performed By: #### M G, CMP #### [facility] [address] [place] [address] Dr. Deepak Greenfield Neutrophils/100 WBC (Bld) 68.6 % Normal 43.0-75.0 [facility] Comment on above: Performed By: #### M G, CMP #### [facility] [address] [place] [address] Dr. Deepak Greenfield Platelet mean volume (Bld) [Entitic vol] 9.5 fL Normal 9.5-13.5 [facility] Comment on above: Performed By: #### M G, CMP #### [facility] [address] [address] [address] Deepak Greenfield PLT 314 103/ul Normal 150-450 [facility] Comment on above: Performed By: #### M G, CMP #### [facility] [address] [address] [address] Deepak Greenfield RBC 3.81 106/ul Critically low 4.70-6.10 [facility] Comment on above: Performed By: #### M G, CMP #### [facility] [address] [address] [address] Deepak Greenfield WBC 10.8 103/ul Normal 4.0-11.0 [facility] Comment on above: Performed By: #### M G, CMP #### [facility] [address] [address] [address] Deepak Greenfield Covid-19 PCR (CVDTB)on SARS-CoV-2 (COVID-19) RNA CINDY+probe Ql (Unsp spec) Not detected Normal NOT DETECTED [facility] Comment on above: Result Comment: When [...] for this test is supported by the [place] of Health and Human Service's declaration that [...] Performed By: #### C VDTBH #### [facility] [address] [place] [address] Dr. Deepak Greenfield INFLUENZA A AND B AGon 07-26 INFLUANEGH SEE BELOW Normal [facility] Comment on above: Result Comment: Nega tive for Flu A protein angiten. Infection due to Flu A cannot be ruled out. Flu A angiten in the sample may be below the detection limit of the test. Performed By: #### I NFLUAB #### [facility] [address] [place] [address] Dr. Deepak Greenfield [facility] BELOW [facility] Comment on above: Result Comment: Nega tive for Flu B protein antigen. Infection due to Flu B cannot be ruled out. Flu B antigen in the sample may be below the detection limit of the test. Performed By: #### I NFLUAB #### [facility] [address] [place] [address] Dr. Deepak Greenfield INFLUENZA A AG Negative Normal NEGATIVE SEE COMMENT [facility] Comment on above: Performed By: #### I NFLUAB #### [facility] [address] [place] [address] Dr. Deepak Greenfield INFLUENZA B AG Negative Normal NEGATIVE SEE COMMENT [facility] Comment on above: Performed By: #### I NFLUAB #### [facility] [address] [place] [address] Dr. Deepak Greenfield LACTATE/LACTIC ACIDon 2022 Lactate [Moles/Vol] 1.2 mmol/L Normal 0.4-2.0 [facility] Comment on above: Performed By: #### M G, CMP #### [facility] [address] [place] [address] Dr. Deepak Greenfield PROF 14(COMP METB)on 023 Albumin [Mass/Vol] 3.3 g/dL Critically low 3.4-5.0 [facility] Comment on above: Performed By: #### B MP #### [facility] [address] [place] [address] Dr. Deepak Greenfield Albumin/Globulin [Mass ratio] 0.8 {ratio} Normal [facility] Comment on above: Performed By: #### B MP #### [facility] [address] [place] [address] Dr. Deepak Greenfield ALP [Catalytic activity/Vol] 45 U/L Critically low 46-116 [facility] Comment on above: Performed By: #### B MP #### [facility] [address] [address] [address] Deepak Greenfield ALT [Catalytic activity/Vol] 114 U/L Critically high 16-63 [facility] Comment on above: Performed By: #### B MP #### [facility] [address] [address] [address] Deepak Greenfield Anion gap [Moles/Vol] 14.5 mmol/L Normal [facility] Comment on above: Performed By: #### B MP #### [facility] [address] [address] [address] Deepak Greenfield AST [Catalytic activity/Vol] 71 U/L Critically high 15-37 [facility] Comment on above: Performed By: #### B MP #### [facility] [address] [address] [address] Deepak Greenfield Bilirubin [Mass/Vol] 0.7 mg/dL Normal 0.2-1.0 [facility] Comment on above: Performed By: #### B MP #### [facility] [address] [address] [address] Deepak Greenfield Calcium [Mass/Vol] 9.1 mg/dL Normal 8.5-10.1 [facility] Comment on above: Performed By: #### B MP #### [facility] [address] [address] [address] Deepak Greenfield Chloride [Moles/Vol] 98 mmol/L Normal 98-107 [facility] Comment on above: Performed By: #### B MP #### [facility] [address] [address] [address] Deepak Greenfield CO2 [Moles/Vol] 27.4 mmol/L Normal 21.0-32.0 [facility] Comment on above: Performed By: #### B MP #### [facility] [address] [address] [address] Deepak Greenfield Creatinine [Mass/Vol] 0.65 mg/dL Critically low 0.70-1.30 [facility] Comment on above: Performed By: #### B MP #### [facility] [address] [address] [address] Deepak Greenfield EGFR-AF BRAZILIAN >60 Normal >=60 [facility] Comment on above: Performed By: #### B MP #### [facility] [address] [address] [address] Deepak Greenfield EGFR-NON AF BRAZILIAN >60 Normal >=60 [facility] Comment on above: Performed By: #### B MP #### [facility] [address] [address] [address] Deepak Greenfield Globulin (S) [Mass/Vol] 4.2 g/dL Normal [facility] Comment on above: Performed By: #### B MP #### [facility] [address] [place] [address] Dr. Deepak Greenfield Glucose [Mass/Vol] 105 mg/dL Normal 74-106 [facility] Comment on above: Performed By: #### B MP #### [facility] [address] [address] [address] Deepak Greenfield Potassium [Moles/Vol] 3.9 mmol/L Normal 3.5-5.1 [facility] Comment on above: Performed By: #### B MP #### [facility] [address] [place] [address] Dr. Deepak Greenfield Protein [Mass/Vol] 7.5 g/dL Normal 6.4-8.2 [facility] Comment on above: Performed By: #### B MP #### [facility] [address] [place] [address] Dr. Deepak Greenfield Sodium [Moles/Vol] 136 mmol/L Normal 136-145 [facility] Comment on above: Performed By: #### B MP #### [facility] [address] [address] [address] Deepak Greenfield Urea nitrogen [Mass/Vol] 13.0 mg/dL Normal 7.0-18.0 [facility] Comment on above: Performed By: #### B MP #### [facility] [address] [address] [address] Deepak Greenfield Urea nitrogen/Creatinine [Mass ratio] 20.0 mg/mg Normal [facility] Comment on above: Performed By: #### B #### [facility] [id number] Deepak Greenfield XR CHEST 1 Von [...] by: ANICETO GARCIA Date: 2022-07-26 12:27 Normal [facility] Consent for Treatmenton Consent for Treatment [id number]:127 Normal [facility] Physician Orderon 07-23-2022 Physician Order [id number] 1.00CD:127 Normal [facility] XR Adult Swallowing Function w/ Videoon 07-23-2022 [...] mGy = 11.70 DAP = 270.92 Normal [facility] AMMONIAon 06-03-2022 Ammonia (P) [Moles/Vol] 112 umol/L Critically high 11-32 [facility] Comment on above: Performed By: #### A MM #### [facility] [address] [place] [address] Dr. Deepak Greenfield DEPAKENE/ VALPROIC ACIDon DEPAKENE 94.0 ug/ml Normal 50.0-100.0 [facility] Comment on above: Performed By: #### C BC #### [facility] [address] [place] [address] Dr. Deepak Greenfield LIVER PROFILEon 06-03-2022 Albumin [Mass/Vol] 3.6 g/dL Normal 3.4-5.0 [facility] Comment on above: Performed By: #### C BC #### [facility] [address] [place] [address] Dr. Deepak Greenfield Albumin/Globulin [Mass ratio] 0.9 {ratio} Normal [facility] Comment on above: Performed By: #### C BC #### [facility] [address] [place] [address] Dr. Deepak Greenfield ALP [Catalytic activity/Vol] 55 U/L Normal 46-116 [facility] Comment on above: Performed By: #### C BC #### [facility] [address] [place] [address] Dr. Deepak Greenfield ALT [Catalytic activity/Vol] 76 U/L Critically high 16-63 [facility] Comment on above: Performed By: #### C BC #### [facility] [address] [place] [address] Dr. Deepak Greenfield AST [Catalytic activity/Vol] 51 U/L Critically high 15-37 [facility] Comment on above: Performed By: #### C BC #### [facility] [address] [place] [address] Dr. Deepak Greenfield BILI, CONJUGATED 0.1 mg/dL Normal 0.0-0.2 [facility] Comment on above: Performed By: #### C BC #### [facility] [address] [place] [address] Dr. Deepak Greenfield Bilirubin [Mass/Vol] 0.4 mg/dL Normal 0.2-1.0 [facility] Comment on above: Performed By: #### C BC #### [facility] [address] [place] [address] Dr. Deepak Greenfield Globulin (S) [Mass/Vol] 4.1 g/dL Normal [facility] Comment on above: Performed By: #### C BC #### [facility] [address] [place] [address] Dr. Deepak Greenfield Protein [Mass/Vol] 7.7 g/dL Normal 6.4-8.2 [facility] Comment on above: Performed By: #### C BC #### [facility] [address] [place] [address] Dr. Deepak Greenfield AMMONIAon 04-22-2022 Ammonia (P) [Moles/Vol] 108 umol/L Critically high 11-32 [facility] Comment on above: Performed By: #### B MP #### [facility] [address] [place] [address] Dr. Deepak Greenfield CBC AUTO DIFFon 04-22-2022 BASO # 0.0 103/ul Normal 0.0-0.1 [facility] Comment on above: Performed By: #### C BC #### [facility] [address] [place] [address] Dr. Deepak Greenfield Basophils/100 WBC (Bld) 0.5 % Normal 0.2-2.0 [facility] Comment on above: Performed By: #### C BC #### [facility] [address] [place] [address] Dr. Deepak Greenfield EO # 0.1 103/ul Normal 0.0-0.7 [facility] Comment on above: Performed By: #### C BC #### [facility] [address] [place] [address] Dr. Deepak Greenfield Eosinophils/100 WBC (Bld) 1.4 % Normal 0.9-7.0 [facility] Comment on above: Performed By: #### C BC #### [facility] [address] [place] [address] Dr. Deepak Greenfield Erythrocyte distribution width (RBC) [Ratio] 14.2 % Normal 11.0-15.0 [facility] Comment on above: Performed By: #### C BC #### [facility] [address] [place] [address] Dr. Deepak Greenfield Hematocrit (Bld) [Volume fraction] 37.0 % Critically low 42.0-54.0 [facility] Comment on above: Performed By: #### C BC #### [facility] [address] [place] [address] Dr. Deepak Greenfield Hemoglobin (Bld) [Mass/Vol] 12.3 g/dL Critically low 14.0-18.0 [facility] Comment on above: Performed By: #### C BC #### [facility] [address] [place] [address] Dr. Deepak Greenfield IG # 0.00 10e3/ul Normal 0.00-0.03 [facility] Comment on above: Performed By: #### C BC #### [facility] [address] [place] [address] Dr. Deepak Greenfield IG % 0.0 % Normal 0.0-0.5 [facility] Comment on above: Performed By: #### C BC #### [facility] [address] [place] [address] Dr. Deepak Greenfield LYMPH # 3.3 103/ul Normal 1.2-3.8 [facility] Comment on above: Performed By: #### C BC #### [facility] [address] [place] [address] Dr. Deepak Greenfield Lymphocytes/100 WBC (Bld) 51.5 % Normal 20.5-60.0 [facility] Comment on above: Performed By: #### C BC #### [facility] [address] [place] [address] Dr. Deepak Greenfield MANUAL DIFF REQ NO Normal [facility] Comment on above: Performed By: #### C BC #### [facility] [address] [place] [address] Dr. Deepak Greenfield MCH (RBC) [Entitic mass] 32.2 pg Normal 25.9-34.0 [facility] Comment on above: Performed By: #### C BC #### [facility] [address] [place] [address] Dr. Deepak Greenfield MCHC (RBC) [Mass/Vol] 33.2 g/dL Normal 29.9-35.2 [facility] Comment on above: Performed By: #### C BC #### [facility] [address] [place] [address] Dr. Deepak Greenfield MCV (RBC) [Entitic vol] 96.9 fL Critically high 80.0-94.0 [facility] Comment on above: Performed By: #### C BC #### [facility] [address] [place] [address] Dr. Deepak Greenfield MONO # 0.6 103/ul Normal 0.3-0.8 [facility] Comment on above: Performed By: #### C BC #### [facility] [address] [place] [address] Dr. Deepak Greenfield Monocytes/100 WBC (Bld) 9.7 % Normal 1.7-12.0 [facility] Comment on above: Performed By: #### C BC #### [facility] [address] [place] [address] Dr. Deepak Greenfield NEUT # 2.4 103/ul Normal 1.4-6.5 [facility] Comment on above: Performed By: #### C BC #### [facility] [address] [place] [address] Dr. Deepak Greenfield Neutrophils/100 WBC (Bld) 36.9 % Critically low 43.0-75.0 [facility] Comment on above: Performed By: #### C BC #### [facility] [address] [place] [address] Dr. Deepak Greenfield Platelet mean volume (Bld) [Entitic vol] 10.2 fL Normal 9.5-13.5 [facility] Comment on above: Performed By: #### C BC #### [facility] [address] [place] [address] Dr. Deepak Greenfield PLT 248 103/ul Normal 150-450 [facility] Comment on above: Performed By: #### C BC #### [facility] [address] [place] [address] Dr. Deepak Greenfield RBC 3.82 106/ul Critically low 4.70-6.10 [facility] Comment on above: Performed By: #### C BC #### [facility] [address] [place] [address] Dr. Deepak Greenfield WBC 6.5 103/ul Normal 4.0-11.0 [facility] Comment on above: Performed By: #### C BC #### [facility] [address] [place] [address] Dr. Deepak Greenfield FERRITINon 04-22-2022 Ferritin [Mass/Vol] 152.0 ng/mL Normal 26.0-388.0 [facility] Comment on above: Performed By: #### M G, CMP #### [facility] [address] [place] [address] Dr. Deepak Greenfield IRONon 04-22-2022 Iron [Mass/Vol] 136.0 ug/dL Normal 65.0-175.0 [facility] Comment on above: Performed By: #### M G, CMP #### [facility] [address] [place] [address] Dr. Deepak Greenfield MAGNESIUMon 04-22-2022 Magnesium [Mass/Vol] 1.6 mg/dL Critically low 1.8-2.4 [facility] Comment on above: Performed By: #### I NFLUAB #### [facility] [address] [place] [address] Dr. Deepak Greenfield VITAMIN B12on 04-22-2022 Cobalamin (Vitamin B12) [Mass/Vol] 545.0 pg/mL Normal 193.0-986.0 [facility] Comment on above: Performed By: #### M G, CMP #### [facility] [address] [place] [address] Dr. Deepak Greenfield CBC AUTO DIFFon 03-19-2022 BASO # 0.0 103/ul Normal 0.0-0.1 [facility] Comment on above: Performed By: #### M G, CMP #### [facility] [address] [place] [address] Dr. Deepak Greenfield Basophils/100 WBC (Bld) 0.5 % Normal 0.2-2.0 [facility] Comment on above: Performed By: #### M G, CMP #### [facility] [address] [place] [address] Dr. Deepak Greenfield EO # 0.2 103/ul Normal 0.0-0.7 [facility] Comment on above: Performed By: #### M G, CMP #### [facility] [address] [place] [address] Dr. Deepak Greenfield Eosinophils/100 WBC (Bld) 2.0 % Normal 0.9-7.0 [facility] Comment on above: Performed By: #### M G, CMP #### [facility] [address] [place] [address] Dr. Deepak Greenfield Erythrocyte distribution width (RBC) [Ratio] 13.5 % Normal 11.0-15.0 [facility] Comment on above: Performed By: #### M G, CMP #### [facility] [address] [place] [address] Dr. Deepak Greenfield Hematocrit (Bld) [Volume fraction] 38.5 % Critically low 42.0-54.0 [facility] Comment on above: Performed By: #### M G, CMP #### [facility] [address] [place] [address] Dr. Deepak Greenfield Hemoglobin (Bld) [Mass/Vol] 12.6 g/dL Critically low 14.0-18.0 [facility] Comment on above: Performed By: #### M G, CMP #### [facility] [address] [place] [address] Dr. Deepak Greenfield IG # 0.02 10e3/ul Normal 0.00-0.03 [facility] Comment on above: Performed By: #### M G, CMP #### [facility] [address] [place] [address] Dr. Deepak Greenfield IG % 0.2 % Normal 0.0-0.5 [facility] Comment on above: Performed By: #### M G, CMP #### [facility] [address] [place] [address] Dr. Deepak Greenfield LYMPH # 3.1 103/ul Normal 1.2-3.8 [facility] Comment on above: Performed By: #### M G, CMP #### [facility] [address] [place] [address] Dr. Deepak Greenfield Lymphocytes/100 WBC (Bld) 36.2 % Normal 20.5-60.0 [facility] Comment on above: Performed By: #### M G, CMP #### [facility] [address] [place] [address] Dr. Deepak Greenfield MANUAL DIFF REQ NO Normal [facility] Comment on above: Performed By: #### M G, CMP #### [facility] [address] [place] [address] Dr. Deepak Greenfield MCH (RBC) [Entitic mass] 32.1 pg Normal 25.9-34.0 [facility] Comment on above: Performed By: #### M G, CMP #### [facility] [address] [place] [address] Dr. Deepak Greenfield MCHC (RBC) [Mass/Vol] 32.7 g/dL Normal 29.9-35.2 [facility] Comment on above: Performed By: #### M G, CMP #### [facility] [address] [place] [address] Dr. Deepak Greenfield MCV (RBC) [Entitic vol] 98.0 fL Critically high 80.0-94.0 [facility] Comment on above: Performed By: #### M G, CMP #### [facility] [address] [place] [address] Dr. Deepak Greenfield MONO # 0.9 103/ul Critically high 0.3-0.8 [facility] Comment on above: Performed By: #### M G, CMP #### [facility] [address] [place] [address] Dr. Deepak Greenfield Monocytes/100 WBC (Bld) 10.6 % Normal 1.7-12.0 [facility] Comment on above: Performed By: #### M G, CMP #### [facility] [address] [place] [address] Dr. Deepak Greenfield NEUT # 4.3 103/ul Normal 1.4-6.5 [facility] Comment on above: Performed By: #### M G, CMP #### [facility] [address] [place] [address] Dr. Deepak Greenfield Neutrophils/100 WBC (Bld) 50.5 % Normal 43.0-75.0 [facility] Comment on above: Performed By: #### M G, CMP #### [facility] [address] [place] [address] Dr. Deepak rGeenfield Platelet mean volume (Bld) [Entitic vol] 9.9 fL Normal 9.5-13.5 [facility] Comment on above: Performed By: #### M G, CMP #### [facility] [address] [place] [address] Dr. Deepak Greenfield PLT 263 103/ul Normal 150-450 [facility] Comment on above: Performed By: #### M G, CMP #### [facility] [address] [place] [address] Dr. Deepak Greenfield RBC 3.93 106/ul Critically low 4.70-6.10 [facility] Comment on above: Performed By: #### M G, CMP #### [facility] [address] [place] [address] Dr. Deepak Greenfield WBC 8.6 103/ul Normal 4.0-11.0 [facility] Comment on above: Performed By: #### M G, CMP #### [facility] [address] [place] [address] Dr. Deepak Greenfield MAGNESIUMon 03-19-2022 Magnesium [Mass/Vol] 1.5 mg/dL Critically low 1.8-2.4 [facility] Comment on above: Performed By: #### M G, CMP #### [facility] [address] [place] [address] Dr. Deepak Greenfield PROF 14(COMP METB)on 022 Albumin [Mass/Vol] 3.4 g/dL Normal 3.4-5.0 [facility] Comment on above: Performed By: #### Karishma House, CMP #### [facility] [address] [place] [address] Dr. Deepak Greenfield Albumin/Globulin [Mass ratio] 0.9 {ratio} Normal [facility] Comment on above: Performed By: #### M G, CMP #### [facility] [address] [place] [address] Dr. Deepak Greenfield ALP [Catalytic activity/Vol] 47 U/L Normal 46-116 [facility] Comment on above: Performed By: #### M G, CMP #### [facility] [address] [place] [address] Dr. Deepak Greenfield ALT [Catalytic activity/Vol] 48 U/L Normal 16-63 [facility] Comment on above: Performed By: #### Karishma G, CMP #### [facility] [address] [place] [address] Dr. Deepak Greenfield Anion gap [Moles/Vol] 9.5 mmol/L Normal [facility] Comment on above: Performed By: #### M G, CMP #### [facility] [address] [place] [address] Dr. Deepak Greenfield AST [Catalytic activity/Vol] 30 U/L Normal 15-37 [facility] Comment on above: Performed By: #### M G, CMP #### [facility] [address] [place] [address] Dr. Deepak Greenfield Bilirubin [Mass/Vol] 0.2 mg/dL Normal 0.2-1.0 [facility] Comment on above: Performed By: #### M G, CMP #### [facility] [address] [place] [address] Dr. Deepak Greenfield Calcium [Mass/Vol] 8.7 mg/dL Normal 8.5-10.1 [facility] Comment on above: Performed By: #### M G, CMP #### [facility] [address] [place] [address] Dr. Deepak Greenfield Chloride [Moles/Vol] 105 mmol/L Normal 98-107 [facility] Comment on above: Performed By: #### M G, CMP #### [facility] [address] [place] [address] Dr. Deepak Greenfield CO2 [Moles/Vol] 32.6 mmol/L Critically high 21.0-32.0 [facility] Comment on above: Performed By: #### M G, CMP #### [facility] [address] [place] [address] Dr. Deepak Greenfield Creatinine [Mass/Vol] 0.70 mg/dL Normal 0.70-1.30 [facility] Comment on above: Performed By: #### M G, CMP #### [facility] [address] [place] [address] Dr. eDepak Greenfield EGFR-AF BRAZILIAN >60 Normal >=60 [facility] Comment on above: Performed By: #### M G, CMP #### [facility] [address] [place] [address] Dr. Deepak Greenfield EGFR-NON AF BRAZILIAN >60 Normal >=60 [facility] Comment on above: Performed By: #### M G, CMP #### [facility] [address] [place] [address] Dr. Deepak Greenfield Globulin (S) [Mass/Vol] 3.8 g/dL Normal [facility] Comment on above: Performed By: #### M G, CMP #### [facility] [address] [place] [address] Dr. Deepak Greenfield Glucose [Mass/Vol] 98 mg/dL Normal 74-106 [facility] Comment on above: Performed By: #### M G, CMP #### [facility] [address] [address] [address] Deepak Greenfield Potassium [Moles/Vol] 4.1 mmol/L Normal 3.5-5.1 [facility] Comment on above: Performed By: #### M G, CMP #### [facility] [address] [place] [address] Dr. Deepak Greenfield Protein [Mass/Vol] 7.2 g/dL Normal 6.4-8.2 [facility] Comment on above: Performed By: #### M G, CMP #### [facility] [address] [place] [address] Dr. Deepak Greenfield Sodium [Moles/Vol] 143 mmol/L Normal 136-145 [facility] Comment on above: Performed By: #### Karishma G, CMP #### [facility] [address] [place] [address] Dr. Deepak Greenfield Urea nitrogen [Mass/Vol] 10.0 mg/dL Normal 7.0-18.0 [facility] Comment on above: Performed By: #### Karishma G, CMP #### [facility] [address] [place] [address] Dr. Deepak Greenfield Urea nitrogen/Creatinine [Mass ratio] 14.3 mg/mg Normal [facility] Comment on above: Performed By: #### M G, CMP #### [facility] [address] [place] [address] Dr. Deepak Greenfield VITAMIN D 25 OHon 03-19-2022 VIT D 25-OH 67.5 ng/mL Normal [facility] Comment on above: Performed By: #### M G, CMP #### [facility] [address] [place] [address] Dr. Deepak Greenfield VIT D RANGES SEE BELOW Normal [facility] Comment on above: Result Comment: <20 ng/mL Vit D deficient 20 - <30 ng/mL Vit D insufficient 30 - 100 ng/mL Vit D sufficient >100 ng/mL Potential Toxicity Performed By: #### M G, CMP #### [facility] [address] [place] [address] Dr. Deepak Greenfield AMMONIAon 03-10-2022 Ammonia (P) [Moles/Vol] 36 umol/L Critically high [facility] Comment on above: Performed By: #### C BC #### [facility] [address] [place] [address] Dr. Deepak Greenfield DEPAKENE/ VALPROIC ACIDon DEPAKENE 93.5 ug/ml Normal 50.0-100.0 [facility] Comment on above: Performed By: #### B MP #### [facility] [address] [place] [address] Dr. Deepak Greenfield BNPon 01-24-2022 Natriuretic peptide B (Bld) [Mass/Vol] 183.0 pg/mL Normal <=450.0 [facility] Comment on above: Performed By: #### M Lacy, CMP #### [facility] [address] [place] [address] Dr. Deepak Greenfield CBC AUTO DIFFon 01-24-2022 BASO # 0.0 103/ul Normal 0.0-0.1 [facility] Comment on above: Performed By: #### C VDTB #### [facility] [address] [place] [address] Dr. Deepak Greenfield Basophils/100 WBC (Bld) 0.3 % Normal 0.2-2.0 [facility] Comment on above: Performed By: #### C VDTBH #### [facility] [address] [place] [address] Dr. Deepak Greenfield EO # 0.1 103/ul Normal 0.0-0.7 [facility] Comment on above: Performed By: #### C VDTBH #### [facility] [address] [place] [address] Dr. Deepak Greenfield Eosinophils/100 WBC (Bld) 0.4 % Critically low 0.9-7.0 [facility] Comment on above: Performed By: #### C VDTBH #### [facility] [address] [place] [address] Dr. Deepak Greenfield Erythrocyte distribution width (RBC) [Ratio] 13.6 % Normal 11.0-15.0 [facility] Comment on above: Performed By: #### C VDTBH #### [facility] [address] [place] [address] Dr. Deepak Greenfield Hematocrit (Bld) [Volume fraction] 39.3 % Critically low 42.0-54.0 [facility] Comment on above: Performed By: #### C VDTBH #### [facility] [address] [place] [address] Dr. Deepak Greenfield Hemoglobin (Bld) [Mass/Vol] 12.6 g/dL Critically low 14.0-18.0 [facility] Comment on above: Performed By: #### C VDTBH #### [facility] [address] [place] [address] Dr. Deepak Greenfield IG # 0.04 10e3/ul Critically high 0.00-0.03 [facility] Comment on above: Performed By: #### C VDTBH #### [facility] [address] [place] [address] Dr. Deepak Greenfield IG % 0.3 % Normal 0.0-0.5 [facility] Comment on above: Performed By: #### C VDTBH #### [facility] [address] [place] [address] Dr. Deepak Greenfield LYMPH # 2.4 103/ul Normal 1.2-3.8 [facility] Comment on above: Performed By: #### C VDTBH #### [facility] [address] [place] [address] Dr. Deepak Greenfield Lymphocytes/100 WBC (Bld) 16.6 % Critically low 20.5-60.0 [facility] Comment on above: Performed By: #### C VDTBH #### [facility] [address] [place] [address] Dr. Deepak Greenfield MANUAL DIFF REQ NO Normal [facility] Comment on above: Performed By: #### C VDTBH #### [facility] [address] [place] [address] Dr. Deepak Greenfield MCH (RBC) [Entitic mass] 32.0 pg Normal 25.9-34.0 [facility] Comment on above: Performed By: #### C VDTBH #### [facility] [address] [place] [address] Dr. Deepak Greenfield MCHC (RBC) [Mass/Vol] 32.1 g/dL Normal 29.9-35.2 [facility] Comment on above: Performed By: #### C VDTBH #### [facility] [address] [place] [address] Dr. Deepak Greenfield MCV (RBC) [Entitic vol] 99.7 fL Critically high 80.0-94.0 [facility] Comment on above: Performed By: #### C VDTBH #### [facility] [address] [place] [address] Dr. Deepak Greenfield MONO # 1.4 103/ul Critically high 0.3-0.8 [facility] Comment on above: Performed By: #### C VDTBH #### [facility] [address] [place] [address] Dr. Deepak Greenfield Monocytes/100 WBC (Bld) 9.8 % Normal 1.7-12.0 [facility] Comment on above: Performed By: #### C VDTBH #### [facility] [address] [place] [address] Dr. Deepak Greenfield NEUT # 10.7 103/ul Critically high 1.4-6.5 [facility] Comment on above: Performed By: #### C VDTBH #### [facility] [address] [place] [address] Dr. Deepak Greenfield Neutrophils/100 WBC (Bld) 72.6 % Normal 43.0-75.0 [facility] Comment on above: Performed By: #### C VDTBH #### [facility] [address] [place] [address] Dr. Deepak Greenfield Platelet mean volume (Bld) [Entitic vol] 10.4 fL Normal 9.5-13.5 [facility] Comment on above: Performed By: #### C VDTBH #### [facility] [address] [place] [address] Dr. Deepak Greenfiled PLT 280 103/ul Normal 150-450 [facility] Comment on above: Performed By: #### C VDTBH #### [facility] [address] [place] [address] Dr. Deepak Greenfield RBC 3.94 106/ul Critically low 4.70-6.10 [facility] Comment on above: Performed By: #### C VDTBH #### [facility] [address] [place] [address] Dr. Deepak Greenfield WBC 14.7 103/ul Critically high 4.0-11.0 [facility] Comment on above: Performed By: #### C VDTBH #### [facility] [address] [place] [address] Dr. Deepak Greenfield CULTURE BLOODon 01-24-2022 Microscopic examination of blood, culture Culture Observations: No growth at 5 days. Normal [facility] Comment on above: Performed By: #### C BC #### [facility] [address] [place] [address] Dr. Deepak Greenfield Microscopic examination of blood, culture Culture Observations: No growth at 5 days. Normal Access [facility] Comment on above: Performed By: #### C BC #### [facility] [address] [place] [address] Dr. Deepak Greenfield Covid-19 PCR ([facility])on SARS-CoV-2 (COVID-19) RNA CINDY+probe Ql (Unsp spec) Not detected Normal NOT DETECTED [facility] Comment on above: Result Comment: When [...] for this test is supported by the [place] of Health and Human Service's declaration that [...] Performed By: #### I NFLUAB #### [facility] [address] [place] [address] Dr. Deepak Greenfield LACTATE/LACTIC ACIDon 2021 Lactate [Moles/Vol] 1.7 mmol/L Normal 0.4-1.9 [facility] Comment on above: Performed By: #### M G, CMP #### [facility] [address] [place] [address] Dr. Deepak Greenfield PROF 14(COMP METB)on 022 Albumin [Mass/Vol] 3.2 g/dL Critically low 3.4-5.0 [facility] Comment on above: Performed By: #### M G, CMP #### [facility] [address] [place] [address] Dr. Deepak Greenfield Albumin/Globulin [Mass ratio] 0.7 {ratio} Normal [facility] Comment on above: Performed By: #### M G, CMP #### [facility] [address] [place] [address] Dr. Deepak Greenfield ALP [Catalytic activity/Vol] 49 U/L Normal 46-116 [facility] Comment on above: Performed By: #### M G, CMP #### [facility] [address] [place] [address] Dr. Deepak Greenfield ALT [Catalytic activity/Vol] 41 U/L Normal 16-63 [facility] Comment on above: Performed By: #### M G, CMP #### [facility] [address] [place] [address] Dr. Deepak Greenfield Anion gap [Moles/Vol] 11.1 mmol/L Normal [facility] Comment on above: Performed By: #### M G, CMP #### [facility] [address] [address] [address] Deepak Greenfield AST [Catalytic activity/Vol] 29 U/L Normal 15-37 [facility] Comment on above: Performed By: #### M G, CMP #### [facility] [address] [address] [address] Deepak Greenfield Bilirubin [Mass/Vol] 0.5 mg/dL Normal 0.2-1.0 [facility] Comment on above: Performed By: #### M G, CMP #### [facility] [address] [address] [address] Deepak Greenfield Calcium [Mass/Vol] 9.1 mg/dL Normal 8.5-10.1 [facility] Comment on above: Performed By: #### M G, CMP #### [facility] [address] [place] [address] Dr. Deepak Greenfield Chloride [Moles/Vol] 108 mmol/L Critically high 98-107 [facility] Comment on above: Performed By: #### M G, CMP #### [facility] [address] [address] [address] Deepak Greenfield CO2 [Moles/Vol] 25.7 mmol/L Normal 21.0-32.0 [facility] Comment on above: Performed By: #### M G, CMP #### [facility] [address] [address] [address] Deepak Greenfield Creatinine [Mass/Vol] 0.89 mg/dL Normal 0.70-1.30 [facility] Comment on above: Performed By: #### M G, CMP #### [facility] [address] [place] [address] Dr. Deepak Greenfield EGFR-AF BRAZILIAN >60 Normal >=60 [facility] Comment on above: Performed By: #### M G, CMP #### [facility] [address] [place] [address] Dr. Deepak Greenfield EGFR-NON AF BRAZILIAN >60 Normal >=60 [facility] Comment on above: Performed By: #### M G, CMP #### [facility] [address] [address] [address] Deepak Greenfield Globulin (S) [Mass/Vol] 4.5 g/dL Normal [facility] Comment on above: Performed By: #### M G, CMP #### [facility] [address] [address] [address] Deepak Greenfield Glucose [Mass/Vol] 178 mg/dL Critically high 74-106 [facility] Comment on above: Performed By: #### M G, CMP #### [facility] [address] [address] [address] Deepak Greenfield Potassium [Moles/Vol] 3.8 mmol/L Normal 3.5-5.1 [facility] Comment on above: Performed By: #### M G, CMP #### [facility] [address] [place] [address] Dr. Deepak Greenfield Protein [Mass/Vol] 7.7 g/dL Normal 6.4-8.2 [facility] Comment on above: Performed By: #### M G, CMP #### [facility] [address] [address] [address] Deepak Greenfield Sodium [Moles/Vol] 141 mmol/L Normal 136-145 [facility] Comment on above: Performed By: #### M G, CMP #### [facility] [address] [address] [address] Deepak Greenfield Urea nitrogen [Mass/Vol] 16.0 mg/dL Normal 7.0-18.0 [facility] Comment on above: Performed By: #### M G, CMP #### [facility] [address] [address] [address] Deepak Greenfield Urea nitrogen/Creatinine [Mass ratio] 18.0 mg/mg Normal [facility] Comment on above: Performed By: #### M G, CMP #### [facility] [address] [place] [address] Dr. Deepak Greenfield TROPONIN, HIGH SENSITIVITYon 01-24-2022 HSTROP 6.4 pg/mL Normal 4.0-76.1 [facility] Comment on above: Result Comment: CUT- OFF POINTS HAVE BEEN ESTABLISHED BASED ON THE FOURTH UNIVERSAL DEFINITIONS OF MYOCARDIAL INFARCTION. THE UPPER REFERENCE LIMIT (URL) OF TROPONIN, DEFINED THE 99TH PERCENTILE OF cTnI DISTRIBUTION IN A REFERENCE POPULATION, HAS BEEN CONFIRMED THE DECISION THRESHOLD FOR NV DIAGNOSIS. Performed By: #### M G, CMP #### [facility] [address] [place] [address] Dr. Deepak Greenfield XR CHEST 1 Von [...] CROCKER Date: 2022-01-24 15:28 Normal [facility] UA RANDOM W/MICROSCOPICon BACTERIA NONE SEEN Normal NONE SEEN [facility] Comment on above: Performed By: #### C VDTBH #### [facility] [address] [place] [address] Dr. Deepak Greenfield Bilirubin Ql (U) Negative Normal NEGATIVE [facility] Comment on above: Performed By: #### C VDTBH #### [facility] [address] [place] [address] Dr. Deepak Greenfield CAST NONE SEEN Normal NONE SEEN [facility] Comment on above: Performed By: #### C VDTBH #### [facility] [address] [place] [address] Dr. Deepak Greenfield Clarity (U) CLEAR Normal CLEAR [facility] Comment on above: Performed By: #### C VDTBH #### [facility] [address] [place] [address] Dr. Deepak Greenfield Color (U) YELLOW Normal YELLOW [facility] Comment on above: Performed By: #### C VDTBH #### [facility] [address] [place] [address] Dr. Deepak Greenfield Crystals LM Nom (Urine sed) NONE SEEN Normal NONE SEEN [facility] Comment on above: Performed By: #### C VDTBH #### [facility] [address] [address] [address] Deepak Greenfield Epithelial cells LM Ql (Urine sed) RARE Normal NONE SEEN /RARE [facility] Comment on above: Performed By: #### C VDTBH #### [facility] [address] [place] [address] Dr. Deepak Greenfield Glucose Ql (U) Negative Normal NEGATIVE [facility] Comment on above: Performed By: #### C VDTBH #### [facility] [address] [place] [address] Dr. Deepak Greenfield Hemoglobin Ql (U) Negative Normal NEGATIVE [facility] Comment on above: Performed By: #### C VDTBH #### [facility] [address] [place] [address] Dr. Deepak Greenfield Ketones Ql (U) 15 mg/dl Abnormal NEGATIVE [facility] Comment on above: Performed By: #### C VDTBH #### [facility] [address] [place] [address] Dr. Deepak Greenfield LEUKOCYTES Negative Normal NEGATIVE [facility] Comment on above: Performed By: #### C VDTBH #### [facility] [address] [place] [address] Dr. Deepak Greenfield MUCOUS NONE SEEN Normal NONE SEEN [facility] Comment on above: Performed By: #### C VDTBH #### [facility] [address] [place] [address] Dr. Deepak Greenfield Nitrite Ql (U) Negative Normal NEGATIVE [facility] Comment on above: Performed By: #### C VDTBH #### [facility] [address] [place] [address] Dr. Deepak Greenfield pH (U) 6.0 [pH] Normal 5-9 [facility] Comment on above: Performed By: #### C VDTBH #### [facility] [address] [place] [address] Dr. Depeak Greenfield RBC 0-2 Normal 0-2 [facility] Comment on above: Performed By: #### C VDTBH #### [facility] [address] [place] [address] Dr. Deepak Greenfield SPEC GRAVITY 1.020 Normal 1.005-<=1.025 [facility] Comment on above: Performed By: #### C VDTBH #### [facility] [address] [place] [address] Dr. Deepak Greenfield UA PROTEIN Negative Normal NEGATIVE/ TRACE [facility] Comment on above: Performed By: #### C VDTBH #### [facility] [address] [place] [address] Dr. Deepak Greenfield Urobilinogen Qn (U) 0.2 {Ottoniel'U}/dL Normal 0.2 - 1. 0 [facility] Comment on above: Performed By: #### C VDTBH #### [facility] [address] [place] [address] Dr. Deepak Greenfield WBC NONE SEEN Normal NONE SEEN [facility] Comment on above: Performed By: #### C VDTBH #### [facility] [address] [place] [address] Dr. Deepak Greenfield ALBUMINon 01-12-2022 Albumin [Mass/Vol] 3.4 g/dL Normal 3.4-5.0 [facility] Comment on above: Performed By: #### C VDTBH #### [facility] [address] [place] [address] Dr. Deepka Greenfield ALKALINE PHOSPHAon ALP [Catalytic activity/Vol] 46 U/L Normal 46-116 [facility] Comment on above: Performed By: #### C VDTBH #### [facility] [address] [place] [address] Dr. Deepak Gerenfield AMMONIAon 01-12-2022 Ammonia (P) [Moles/Vol] 93 umol/L Critically high 11-32 [facility] Comment on above: Performed By: #### I NFLUAB #### [facility] [address] [place] [address] Dr. Deepak Greenfield BILIRUBIN CONJUGATED (DIRECT )on 01-12-2022 BILI, CONJUGATED 0.1 mg/dL Normal 0.0-0.2 [facility] Comment on above: Performed By: #### C VDTB #### [facility] [address] [place] [address] Dr. Deepak Greenfield BILIRUBIN TOTALon 01-12-2022 Bilirubin [Mass/Vol] 0.4 mg/dL Normal 0.2-1.0 [facility] Comment on above: Performed By: #### C VDTBH #### [facility] [address] [place] [address] Dr. Deepak Greenfield CBC AUTO DIFFon 01-12-2022 BASO # 0.0 103/ul Normal 0.0-0.1 [facility] Comment on above: Performed By: #### Karishma House, CMP #### [facility] [address] [place] [address] Dr. Deepak Greenfield Basophils/100 WBC (Bld) 0.3 % Normal 0.2-2.0 [facility] Comment on above: Performed By: #### Karishma House, CMP #### [facility] [address] [place] [address] Dr. Deepak Greenfield EO # 0.1 103/ul Normal 0.0-0.7 [facility] Comment on above: Performed By: #### Karishma House, CMP #### [facility] [address] [place] [address] Dr. Deepak Greenfield Eosinophils/100 WBC (Bld) 1.3 % Normal 0.9-7.0 [facility] Comment on above: Performed By: #### Karishma House, CMP #### [facility] [address] [place] [address] Dr. Deepak Greenfield Erythrocyte distribution width (RBC) [Ratio] 14.2 % Normal 11.0-15.0 [facility] Comment on above: Performed By: #### Karishma House, CMP #### [facility] [address] [place] [address] Dr. Deepak Greenfield Hematocrit (Bld) [Volume fraction] 40.4 % Critically low 42.0-54.0 [facility] Comment on above: Performed By: #### M Lacy, CMP #### [facility] [address] [place] [address] Dr. Deepak Greenfield Hemoglobin (Bld) [Mass/Vol] 13.1 g/dL Critically low 14.0-18.0 [facility] Comment on above: Performed By: #### M G, CMP #### [facility] [address] [place] [address] Dr. Deepak Greenfield IG # 0.01 10e3/ul Normal 0.00-0.03 [facility] Comment on above: Performed By: #### M G, CMP #### [facility] [address] [place] [address] Dr. Deepak Greenfield IG % 0.1 % Normal 0.0-0.5 [facility] Comment on above: Performed By: #### M G, CMP #### [facility] [address] [place] [address] Dr. Deepak Greenfield LYMPH # 3.3 103/ul Normal 1.2-3.8 [facility] Comment on above: Performed By: #### M G, CMP #### [facility] [address] [place] [address] Dr. Deepak Greenfield Lymphocytes/100 WBC (Bld) 42.3 % Normal 20.5-60.0 [facility] Comment on above: Performed By: #### M G, CMP #### [facility] [address] [place] [address] Dr. Deepak Greenfield MANUAL DIFF REQ NO Normal [facility] Comment on above: Performed By: #### M G, CMP #### [facility] [address] [place] [address] Dr. Deepak Greenfield MCH (RBC) [Entitic mass] 32.4 pg Normal 25.9-34.0 [facility] Comment on above: Performed By: #### M G, CMP #### [facility] [address] [place] [address] Dr. Deepak Greenfield MCHC (RBC) [Mass/Vol] 32.4 g/dL Normal 29.9-35.2 [facility] Comment on above: Performed By: #### M G, CMP #### [facility] [address] [address] [address] Deepak Greenfield MCV (RBC) [Entitic vol] 100.0 fL Critically high 80.0-94.0 [facility] Comment on above: Performed By: #### M G, CMP #### [facility] [address] [address] [address] Deepak Greenfield MONO # 0.6 103/ul Normal 0.3-0.8 [facility] Comment on above: Performed By: #### M G, CMP #### [facility] [address] [place] [address] Dr. Deepak Greenfield Monocytes/100 WBC (Bld) 7.6 % Normal 1.7-12.0 [facility] Comment on above: Performed By: #### M G, CMP #### [facility] [address] [place] [address] Dr. Deepak Greenfield NEUT # 3.8 103/ul Normal 1.4-6.5 [facility] Comment on above: Performed By: #### M G, CMP #### [facility] [address] [place] [address] Dr. Deepak Greenfield Neutrophils/100 WBC (Bld) 48.4 % Normal 43.0-75.0 [facility] Comment on above: Performed By: #### M G, CMP #### [facility] [address] [place] [address] Dr. Deepak Greenfield Platelet mean volume (Bld) [Entitic vol] 9.6 fL Normal 9.5-13.5 [facility] Comment on above: Performed By: #### M G, CMP #### [facility] [address] [place] [address] Dr. Deepak Greenfield PLT 315 103/ul Normal 150-450 [facility] Comment on above: Performed By: #### M G, CMP #### [facility] [address] [place] [address] Dr. Deepak Greenfield RBC 4.04 106/ul Critically low 4.70-6.10 [facility] Comment on above: Performed By: #### M G, CMP #### [facility] [address] [address] [address] Deepak Greenfield WBC 7.9 103/ul Normal 4.0-11.0 [facility] Comment on above: Performed By: #### M G, CMP #### [facility] [address] [place] [address] Dr. Deepak Greenfield DEPAKENE/VALPROICon 01-13-20 DEPAKENE 89.7 ug/ml Normal 50.0-100.0 [facility] Comment on above: Performed By: #### I NFLUAB #### [facility] [address] [place] [address] Dr. Deepak Greenfield PROF CHEM 8 (BAS METB)on Anion gap [Moles/Vol] 12.9 mmol/L Normal [facility] Comment on above: Performed By: #### I NFLUAB #### [facility] [address] [place] [address] Dr. Deepak Greenfield Calcium [Mass/Vol] 8.8 mg/dL Normal 8.5-10.1 [facility] Comment on above: Performed By: #### I NFLUAB #### [facility] [address] [place] [address] Dr. Deepak Greenfield Chloride [Moles/Vol] 103 mmol/L Normal 98-107 [facility] Comment on above: Performed By: #### I NFLUAB #### [facility] [address] [place] [address] Dr. Deepak Greenfield CO2 [Moles/Vol] 28.1 mmol/L Normal 21.0-32.0 [facility] Comment on above: Performed By: #### I NFLUAB #### [facility] [address] [place] [address] Dr. Deepak Greenfield Creatinine [Mass/Vol] 0.58 mg/dL Critically low 0.70-1.30 [facility] Comment on above: Performed By: #### I NFLUAB #### [facility] [address] [place] [address] Dr. Deepak Greenfield EGFR-AF BRAZILIAN >60 Normal >=60 [facility] Comment on above: Performed By: #### I NFLUAB #### [facility] [address] [place] [address] Dr. Deepak Greenfield EGFR-NON AF BRAZILIAN >60 Normal >=60 [facility] Comment on above: Performed By: #### I NFLUAB #### [facility] [address] [place] [address] Dr. Deepak Greenfield Glucose [Mass/Vol] 117 mg/dL Critically high 74-106 [facility] Comment on above: Performed By: #### I NFLUAB #### [facility] [address] [place] [address] Dr. Deepak Greenfield Potassium [Moles/Vol] 4.0 mmol/L Normal 3.5-5.1 [facility] Comment on above: Performed By: #### I NFLUAB #### [facility] [address] [place] [address] Dr. Deepak Greenfield Sodium [Moles/Vol] 140 mmol/L Normal 136-145 [facility] Comment on above: Performed By: #### I NFLUAB #### [facility] [address] [place] [address] Dr. Deepak Greenfield Urea nitrogen [Mass/Vol] 7.0 mg/dL Normal 7.0-18.0 [facility] Comment on above: Performed By: #### I NFLUAB #### [facility] [address] [place] [address] Dr. Deepak Greenfield Urea nitrogen/Creatinine [Mass ratio] 12.1 mg/mg Normal [facility] Comment on above: Performed By: #### I NFLUAB #### [facility] [address] [place] [address] Dr. Deepak Madrigal 01-12-2022 AST [Catalytic activity/Vol] 31 U/L Normal 15-37 [facility] Comment on above: Performed By: #### C VDTBH #### [facility] [address] [place] [address] Dr. Deepak Medrano 01-12-2022 ALT [Catalytic activity/Vol] 48 U/L Normal 16-63 [facility] Comment on above: Performed By: #### C VDTBH #### [facility] [address] [place] [address] Dr. Deepak Greenfield T PROTEIN SERUMon 01-12-2022 Protein [Mass/Vol] 7.3 g/dL Normal 6.4-8.2 [facility] Comment on above: Performed By: #### B MP #### [facility] [address] [place] [address] Dr. Deepak Greenfield XR CHEST 2 Von [...] by: ANICETO CROCKER Date: 2022-01-06 16:15 Normal [facility] XR DEXA BONE DENSITYon 11-20 XR DEXA [...] by: MARGARITO DAVIES Date: 2021-11-20 11:42 Normal [facility] US SCROTUMon 11-14-2021 US SCROTUM EXAMINATION: US [...] KRISTIAN BILLINGS Date: 2021-11-14 07:10 Normal [facility] AMMONIAon 10-31-2021 Ammonia (P) [Moles/Vol] 88 umol/L Critically high [facility] Comment on above: Performed By: #### M G, CMP #### [facility] [address] [place] [address] Dr. Deepak Greenfield AMMONIAon 10-30-2021 Ammonia (P) [Moles/Vol] 103 umol/L Critically high [facility] Comment on above: Result Comment: SPEC IMEN SLIGHTLY HEMOLYZED MAY AFFECT AMM RESULT Performed By: #### I NFLUAB #### [facility] [address] [address] [address] Deepak Greenfield WOUND CULTUREon 10-23-2021 Bacteria identified Aer cx Nom (Unsp spec) Final report Normal [facility] Comment on above: Performed By: #### C XWND #### [facility] [address] [place] [address] Dr. Deepak Greenfield Result 1 Comment Normal [facility] Comment on above: Result Comment: No g rowphillip in 36 - 48 hours. Performed By: #### C XWND #### [facility] [address] [place] [address] Dr. Deepak Greenfield WOUND CULTUREon 10-02-2021 Bacteria identified Aer cx Nom (Unsp spec) Final report Normal [facility] Comment on above: Performed By: #### A MM #### [facility] [address] [place] [address] Dr. Deepak Greenfield Result 1 Mixed skin omid Normal [facility] Comment on above: Performed By: #### A MM #### [facility] [address] [place] [address] Dr. Deepak Greenfield AMYLASEon 09-22-2021 Amylase [Catalytic activity/Vol] 24 U/L Critically low 25-115 [facility] Comment on above: Performed By: #### C BC #### [facility] [address] [place] [address] Dr. Deepak Greenfield CBC AUTO DIFFon 09-22-2021 BASO # 0.0 103/ul Normal 0.0-0.1 [facility] Comment on above: Performed By: #### C VDTBH #### [facility] [address] [place] [address] Dr. Deepak Greenfield Basophils/100 WBC (Bld) 0.5 % Normal 0.2-2.0 [facility] Comment on above: Performed By: #### C VDTBH #### [facility] [address] [place] [address] Dr. Deepak Greenfield EO # 0.1 103/ul Normal 0.0-0.7 [facility] Comment on above: Performed By: #### C VDTBH #### [facility] [address] [place] [address] Dr. Deepak Greenfield Eosinophils/100 WBC (Bld) 1.3 % Normal 0.9-7.0 [facility] Comment on above: Performed By: #### C VDTBH #### [facility] [address] [place] [address] Dr. Deepak Greenfield Erythrocyte distribution width (RBC) [Ratio] 13.9 % Normal 11.0-15.0 [facility] Comment on above: Performed By: #### C VDTBH #### [facility] [address] [place] [address] Dr. Deepak Greenfield Hematocrit (Bld) [Volume fraction] 40.0 % Critically low 42.0-54.0 [facility] Comment on above: Performed By: #### C VDTBH #### [facility] [address] [place] [address] Dr. Deepak Greenfield Hemoglobin (Bld) [Mass/Vol] 13.0 g/dL Critically low 14.0-18.0 [facility] Comment on above: Performed By: #### C VDTBH #### [facility] [address] [place] [address] Dr. Deepak Greenfield IG # 0.01 10e3/ul Normal 0.00-0.03 [facility] Comment on above: Performed By: #### C VDTBH #### [facility] [address] [place] [address] Dr. Deepak Greenfield IG % 0.2 % Normal 0.0-0.5 [facility] Comment on above: Performed By: #### C VDTBH #### [facility] [address] [place] [address] Dr. Deepak Greenfield LYMPH # 3.0 103/ul Normal 1.2-3.8 [facility] [place] Comment on above: Performed By: #### C VDTBH #### [facility] [address] [place] [address] Dr. Deepak Greenfield Lymphocytes/100 WBC (Bld) 47.9 % Normal 20.5-60.0 [facility] Comment on above: Performed By: #### C VDTBH #### [facility] [address] [place] [address] Dr. Deepak Greenfield MANUAL DIFF REQ NO Normal [facility] Comment on above: Performed By: #### C VDTBH #### [facility] [address] [place] [address] Dr. Deepak Greenfield MCH (RBC) [Entitic mass] 32.9 pg Normal 25.9-34.0 [facility] Comment on above: Performed By: #### C VDTBH #### [facility] [address] [place] [address] Dr. Deepak Greenfield MCHC (RBC) [Mass/Vol] 32.5 g/dL Normal 29.9-35.2 [facility] Comment on above: Performed By: #### C VDTBH #### [facility] [address] [place] [address] Dr. Deepak Greenfield MCV (RBC) [Entitic vol] 101.3 fL Critically high 80.0-94.0 [facility] Comment on above: Performed By: #### C VDTBH #### [facility] [address] [place] [address] Dr. Deepak Greenfield MONO # 0.7 103/ul Normal 0.3-0.8 [facility] [place] Comment on above: Performed By: #### C VDTBH #### [facility] [address] [place] [address] Dr. Deepak Greenfield Monocytes/100 WBC (Bld) 10.3 % Normal 1.7-12.0 [facility] [place] Comment on above: Performed By: #### C VDTBH #### [facility] [address] [place] [address] Dr. Deepak Greenfield NEUT # 2.5 103/ul Normal 1.4-6.5 [facility] Comment on above: Performed By: #### C VDTBH #### [facility] [address] [place] [address] Dr. Deepak Greenfield Neutrophils/100 WBC (Bld) 39.8 % Critically low 43.0-75.0 [facility] Comment on above: Performed By: #### C VDTBH #### [facility] [address] [place] [address] Dr. Deepak Greenfield Platelet mean volume (Bld) [Entitic vol] 10.1 fL Normal 9.5-13.5 [facility] Comment on above: Performed By: #### C VDTBH #### [facility] [address] [place], [place] [address] Dr. Deepak Greenfield PLT 311 103/ul Normal 150-450 [facility] Comment on above: Performed By: #### C VDTBH #### [facility] [address] [place], [place] [address] Dr. Deepak Greenfield RBC 3.95 106/ul Critically low 4.70-6.10 [facility] Comment on above: Performed By: #### C VDTBH #### [facility] [address] [place], [place] [address] Dr. Deepak Greenfield WBC 6.3 103/ul Normal 4.0-11.0 [facility] [place] Comment on above: Performed By: #### C VDTBH #### [facility] [address] [place], [place] [address] ABD/PELV W CONon [...] JAMIE ALICIA Date: 2021-09-22 02:34 Normal [facility] CT HEAD WO CONon 09-22-2021 CT [...] FONTENOT Date: 2021-09-22 01:13 Normal [facility] LIPASEon 09-22-2021 Lipase [Catalytic activity/Vol] 28.0 U/L Critically low 73.0-393.0 [facility] [place] Comment on above: Performed By: #### C BC #### [facility] [address] [place], [place] [address] Dr. Deepak Greenfield PROF 14(COMP METB)on 022 Albumin [Mass/Vol] 3.3 g/dL Critically low 3.4-5.0 Th [facility] Comment on above: Performed By: #### B MP #### [facility] [address] [place], [place] [address] Dr. Deepak Greenfield Albumin/Globulin [Mass ratio] 0.9 {ratio} Normal [facility] [place] Comment on above: Performed By: #### B MP #### [facility] [address] [place] [address] [address] Deepak Greenfield ALP [Catalytic activity/Vol] 38 U/L Critically low 46-116 [facility] [place] Comment on above: Performed By: #### B MP #### [facility] [address] [place] [address] [address] Deepak Greenfield ALT [Catalytic activity/Vol] 91 U/L Critically high 16-63 [facility] [place] Comment on above: Performed By: #### B MP #### [facility] [address] [place] [address] [address] Deepak Greenfield Anion gap [Moles/Vol] 10.2 mmol/L Normal [facility] [place] Comment on above: Performed By: #### B MP #### [facility] [address] [place] [address] [address] Deepak Greenfield AST [Catalytic activity/Vol] 50 U/L Critically high 15-37 [facility] [place] Comment on above: Performed By: #### B MP #### [facility] [address] [place] [address] [address] Deepak Greenfield Bilirubin [Mass/Vol] 0.3 mg/dL Normal 0.2-1.0 [facility] [place] Comment on above: Performed By: #### B MP #### [facility] [address] [place] [address] [address] Deepak Greenfield Calcium [Mass/Vol] 8.6 mg/dL Normal 8.5-10.1 [facility] Comment on above: Performed By: #### B MP #### [facility] [address] [place] [address] [address] Deepak Greenfield Chloride [Moles/Vol] 106 mmol/L Normal 98-107 [facility] [place] Comment on above: Performed By: #### B MP #### [facility] [address] [place] [address] [address] Deepak Greenfield CO2 [Moles/Vol] 29.9 mmol/L Normal 21.0-32.0 [facility] Comment on above: Performed By: #### B MP #### [facility] [address] [place] [address] [address] Deepak Greenfield Creatinine [Mass/Vol] 0.65 mg/dL Critically low 0.70-1.30 [facility] Comment on above: Performed By: #### B MP #### [facility] [address] [place] [address] [address] Deepak Greenfield EGFR-AF BRAZILIAN >60 Normal >=60 [facility] Comment on above: Performed By: #### B MP #### [facility] [address] [place] [address] [address] Deepak Greenfield EGFR-NON AF BRAZILIAN >60 Normal >=60 [facility] [place] Comment on above: Performed By: #### B MP #### [facility] [address] [place] [address] [address] Deepak Greenfield Globulin (S) [Mass/Vol] 3.7 g/dL Normal [facility] [place] Comment on above: Performed By: #### B MP #### [facility] [address] [place] [address] Dr. Deepak Greenfield Glucose [Mass/Vol] 105 mg/dL Normal 74-106 [facility] Comment on above: Performed By: #### B MP #### [facility] [address] [place] [address] Dr. Deepak Greenfield Potassium [Moles/Vol] 4.1 mmol/L Normal 3.5-5.1 [facility] Comment on above: Performed By: #### B MP #### [facility] [address] [place] [address] Dr. Deepak Greenfield Protein [Mass/Vol] 7.0 g/dL Normal 6.4-8.2 [facility] Comment on above: Performed By: #### B MP #### [facility] [address] [place] [address] Dr. Deepak Greenfield Sodium [Moles/Vol] 142 mmol/L Normal 136-145 [facility] Comment on above: Performed By: #### B MP #### [facility] [address] [place] [address] [address] Deepak Greenfield Urea nitrogen [Mass/Vol] 13.0 mg/dL Normal 7.0-18.0 [facility] [place] Comment on above: Performed By: #### B MP #### [facility] [address] [place] [address] [address] Deepak Greenfield Urea nitrogen/Creatinine [Mass ratio] 20.0 mg/mg Normal [facility] [place] Comment on above: Performed By: #### B MP #### [facility] [address] [place] [address] [address] Deepak Greenfield Vital Signs Date Time Vital Sign Value Performing Clinician Facility 06-05-2024 21:37-0500 Heart rate 122 /min [facility] 06-02-2024 13:35-0500 Body temperature 98.91 [degF] [facility] 06-02-2024 13:35-0500 Body weight 63.05 kg [facility] 06-02-2024 13:35-0500 Diastolic blood pressure 73 mm[Hg] [facility] 06-02-2024 13:35-0500 Heart rate 115 /min [facility] 06-02-2024 13:35-0500 Respiratory rate 16 /min [facility] 06-02-2024 13:35-0500 Systolic blood pressure 154 mm[Hg] [facility] 06-02-2024 13:25-0500 Body temperature 98.91 [degF] Boyd Harry MD Work Phone: [facility] 06-02-2024 13:25-0500 Body weight 63.05 kg Boyd Harry MD Work Phone: [facility] 06-02-2024 13:25-0500 Diastolic blood pressure 73 mm[Hg] Boyd Harry MD Work Phone: [facility] 06-02-2024 13:25-0500 Heart rate 115 /min Boyd Harry MD Work Phone: [facility] 06-02-2024 13:25-0500 Respiratory rate 16 /min Boyd Harry MD Work Phone: [facility] 06-02-2024 13:25-0500 Systolic blood pressure 154 mm[Hg] Boyd Harry MD Work Phone: [facility] 05-31-2024 13:05-0500 Diastolic blood pressure 64 mm[Hg] Rodriguez Rashel DO Work Phone: [facility] 05-31-2024 13:05-0500 Systolic blood pressure 108 mm[Hg] Rodriguez Rashel DO Work Phone: [facility] 03-07-2024 11:34-0500 Diastolic blood pressure 88 mm[Hg] Rodriguez Rashel DO Work Phone: [facility] 03-07-2024 11:34-0500 Heart rate 68 /min Rodriguez Rashel DO Work Phone: [facility] 03-07-2024 11:34-0500 SaO2% (BldA) [Mass fraction] 98 % Rodriguez Rashel DO Work Phone: [facility] 03-07-2024 11:34-0500 Systolic blood pressure 128 mm[Hg] Rodriguez Rashel DO Work Phone: [facility] 12-16-2022 10:18-0400 Blood Pressure Location Arline Lue [facility] 12-16-2022 10:18-0400 Body temperature 98.06 [degF] Arline Lue [facility] 12-16-2022 10:18-0400 Diastolic blood pressure 78 mm[Hg] Arline Lue [facility] 12-16-2022 10:18-0400 Heart rate 84 /min Arline Lue [facility] 12-16-2022 10:18-0400 Systolic blood pressure 128 mm[Hg] Arline Lue [facility] 12-23-2021 11:30-0400 Body height 157.48 cm Antionette Leonel Other [facility] Other 12-23-2021 11:30-0400 Body mass index (BMI) [Ratio] 25.79 kg/m2 Antionette Leonel Other [facility] Other 12-23-2021 11:30-0400 Body temperature 98.5 [degF] Antionette Leonel Other [facility] Other 12-23-2021 11:30-0400 Body weight 63.96 kg Antionette Leonel Other [facility] Other 12-23-2021 11:30-0400 Diastolic blood pressure 70 mm[Hg] Antionette Leonel Other [facility] Other 12-23-2021 11:30-0400 Respiratory rate 20 /min Antionette Leonel Other [facility] Other 12-23-2021 11:30-0400 SaO2% (BldA) [Mass fraction] 99 % Antionette Leonel Other [facility] Other 12-23-2021 11:30-0400 Systolic blood pressure 120 mm[Hg] Antionette Leonel Other [facility] Other 10-22-2021 10:29-0400 Blood Pressure Location Arline Lue [facility] 10-22-2021 10:29-0400 Diastolic blood pressure 92 mm[Hg] Arline Lue [facility] 10-22-2021 10:29-0400 Heart rate 100 /min Arline Levine [facility] 10-22-2021 10:29-0400 Respiratory rate 16 /min Arline Levine [facility] 10-22-2021 10:29-0400 Systolic blood pressure 137 mm[Hg] Arline Levine [facility] Encounters Encounter Date Encounter Type Care Provider Facility Start: 07-11-2024 End: 07-11-2024 ambulatory [facility] Work Phone: Start: 07-11-2024 End: 07-11-2024 Patient encounter procedure [facility] Work Phone: Start: 06-12-2024 ambulatory [facility] Start: 06-12-2024 End: 06-12-2024 ambulatory AP SCOTT [facility] Start: 06-02-2024 Encounter for other preprocedural examination UNKNOWN PROVIDER [facility] Start: 06-02-2024 End: 06-02-2024 ambulatory BOYD HARRY Facility:[facility] Start: 06-02-2024 End: 06-02-2024 Office outpatient new 45 minutes [facility] Pre-Admission Testing Comment on above: Preop examination (P rimary Dx); Intellectual disability; Hypothyroidism, unspecified type; Seizure (HCC); Edema, unspecified type; Tachycardia, unspecified; Cardiomegaly; Abnormal electrocardiogram (ECG) (EKG); Abnormal electrocardiogram (ECG) (EKG); Abnormal electrocardiogram (ECG) (EKG) Pre-op evaluation (P rimary Dx); Mental disability; Hypothyroidism, unspecified type; Abnormal thyroid blood test Start: 06-02-2024 End: 06-02-2024 Preprocedural examination done Boyd Harry MD Work Phone: [facility] Work Phone: Start: 06-02-2024 End: 06-02-2024 ambulatory BOYD HARRY Facility:[facility] Start: 05-31-2024 End: 05-31-2024 Bamboo flowsheet Rodriguez Rashel DO Work Phone: [facility] [place] Start: 05-31-2024 End: 05-31-2024 Bamboo flowsheet Rodriguez Rashel DO Work Phone: [facility] Start: 05-31-2024 [...] surgery center Jared Adair DDS Work Phone: [facility] Start: 03-07-2024 End: 03-07-2024 Bamboo flowsheet Rodriguez Rashel DO Work Phone: [facility] [place] [address] Start: 03-07-2024 End: 03-07-2024 Bamboo flowsheet Rodriguez Rashel DO Work Phone: [facility] [address] Start: 03-07-2024 End: 03-07-2024 Office outpatient visit 25 minutes Rodriguez Kiser DO Work Phone: [phone] [place] [address] [address] Comment on above: Generalized convulsi ve epilepsy (CMS/HCC) (Primary Dx); 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); Spastic hemiplegia affecting dominant side (CMS/HCC); Spastic hemiplegia, nondominant side (HCC) (CMS/HCC); Severe intellectual disabilities (CMS/HCC) Start: 03-07-2024 End: 03-07-2024 ambulatory RODRIGUEZ KISER Not Available Start: 01-11-2024 End: 01-11-2024 ambulatory [facility] Work Phone: Start: 01-11-2024 End: 01-11-2024 Patient encounter procedure [facility] Work Phone: Start: 11-07-2023 End: 11-07-2023 Letter encounter Abundio Mares DDS Work Phone: [facility] Start: 08-25-2023 End: 08-25-2023 ambulatory RODRIGUEZ KISER Not Available Start: 07-06-2023 End: 07-06-2023 ambulatory [facility] Work Phone: Start: 07-06-2023 End: 07-06-2023 Patient encounter procedure [facility] Work Phone: Start: 01-05-2023 End: 01-05-2023 ambulatory Antionette Leonel Other [facility] Other Start: 01-05-2023 Office outpatient vi sit 25 minutes Antionette Leonel [facility] Start: 12-16-2022 End: 12-17-2022 ambulatory Arline Levine Facility:[facility] Start: 12-16-2022 End: 12-16-2022 Patient encounter procedure Arline Levine [facility] Start: 08-04-2022 End: 08-04-[address] FAM ACEVEDO Facility: Start: 07-29-2022 End: 08-02-2022 Evaluation and management of inpatient DR FAM ACEVEDO Facility:[facility] Start: 07-26-2022 End: 07-27-[address] FAM ACEVEDO Facility:[facility] Start: 07-23-2022 End: 07-24-2022 ambulatory FAM ACEVEDO [place] Start: 07-23-2022 End: 07-23-2022 Patient encounter procedure FAM ACEVEDO [facility] Start: 06-23-2022 End: 06-23-2022 ambulatory Antionette Leonel Other [facility] Other Start: 06-23-2022 Office outpatient vi sit 25 minutes Antionette Leonel [facility] Start: 06-03-2022 End: 06-04-[address] FAM ACEVEDO Facility:[facility] Start: 05-08-2022 Letter encounter Abundio Mares KETAN Work Phone: [facility] Start: 04-22-2022 End: 04-23-[address] FAM ACEVEDO Facility:[facility] Start: 03-19-2022 End: 03-20-[address] FAM ACEVEDO Facility:[facility] Start: 03-10-2022 End: 03-11-[address] FAM ACEVEDO Facility:[facility] Start: 01-24-2022 End: 01-24-[address] DIAMOND BURGER . Facility:[facility] Start: 01-18-2022 End: 01-18-2022 ambulatory ANJELICA DOLL . Facility:[facility] Start: 01-13-[address] [facility]Z [facility] Start: 01-12-2022 End: 01-13-[address] RODRIGUEZ KISER Facility:[facility] Start: 01-06-2022 End: 01-07-[address] FAM ACEVEDO Facility:[facility] Start: 12-23-2021 End: 12-23-2021 ambulatory Antionette Leonel Other [facility] Other Start: 12-23-2021 Office outpatient vi sit 25 minutes Antionette Leonel [facility] Start: 12-16-2021 End: 12-17-2021 Patient encounter procedure Mora Powell [facility] Work Phone: [facility] Start: 12-10-2021 End: 12-10-2021 Patient encounter procedure Arline Levine [facility] Start: 11-20-2021 End: 11-21-[address] FAM ACEVEDO Facility:[facility] Start: 11-13-2021 End: 11-14-2021 ambulatory ARLINE Duenas Facility:[facility] Start: 10-31-2021 End: 11-01-[address] FAM ACEVEDO Facility:[facility] Start: 10-22-2021 End: 10-22-2021 Patient encounter procedure Arline Levine [facility] Start: 10-21-2021 End: 10-21-2021 ambulatory [...] 2) Shingles (RZV) Vaccine (1 of 2) [facility] Start: 08-12-2028 [facility] Start: 06-02-2025 Thyroid stimulating hormone measurement TSH [facility] Start: 12-11-2024 End: 12-11-2024 Patient encounter procedure 12/11/2024 10:00 AM EDT Procedure Visit [facility] [address] [place] [address] Ap Scott, S [address] [place] [address] [facility] Start: 11-20-2024 End: 11-20-2024 Patient encounter procedure 11/20/2024 11:20 AM EDT Office Visit [facility] [address] [place] [phone] Marissa Gonzalez NP [address] [facility] Start: 06-12-2024 Subsequent hospital visit by physician 06/12/2024 Hospital Encounter [facility] [address] [place] [address] Ap Scott, [address] [place] [address] [facility] Start: 06-02-2024 End: 06-02-2024 Patient encounter procedure 06/02/2024 1:30 PM EST Office Visit [facility] [address] [place] [address] Boyd Harry MD [address] [place] [address] [facility] Start: 05-31-2024 End: 05-31-2024 Patient encounter procedure [facility] [address] Comment on above: Arrived Start: 05-30-2024 Welcome to Medicare Visit (G0402) Welcome to Medicare Visit (G0402) [facility] Start: 03-07-2024 End: 03-07-2024 Patient encounter procedure 03/07/2024 11:30 AM EST Office Visit [facility] [address] [place] [id number] Rashel Rodriguez, DO [address] [place] [address] Ar[address] [facility] [address] Comment on above: Arrived Start: 01-18-2024 Influenza vaccination Influenza Vacc ine (#1) [facility] Start: 12-19-2023 COVID-19 Vaccine ( season) COVID-19 Vaccine ( season) [facility] Start: 12-19-2023 Influenza vaccination Influenza Vacc ine (#1) [facility] Start: 12-18-2022 COVID-19 Vaccine ( season) COVID-19 Vaccine ( season) [facility] Start: 01-17-2022 Influenza vaccination Influenza Vacc ine (#1) [facility] Start: 02-01-2015 Lipid panel Cholesterol [facility] Start: 05-20-2012 Annual wellness visit [facility] Start: 02-01-2007 HPV Vaccine [...] [facility] Start: 02-01-1995 HIV screening HIV Test [facility] Start: 1980 COVID-19 Vaccine (#1) COVID-19 Vacci ne (#1) [facility] Start: 1980 Medicare Annual Wellness (AWV) Medicare Annual Wellness (AWV) [facility] Start: 1980 Prostate specific antigen measurement Prostate Cancer Screening (shared decision making) [facility] DENTAL RESTORATIONS DENTAL ANI RATIONS Routine scheduled Caries [facility] Immunizations Immunization Date Immunization Notes Care Provider Lucero perry 03-04-2020 pneumococcal conjuga te vaccine, 13 valent Mora Urmetz [facility] Work Phone: [facility] 01-26-2018 influenza, injectabl e, quadrivalent, preservative free Mora Urmetz [facility] Work Phone: [facility] 01-26-2018 influenza virus vaccine, unspecified formulation Mora Urmetz R[facility] Work Phone: [facility] 02-10-2017 influenza virus vaccine, unspecified formulation Arline Lue [facility] 02-10-2017 influenza, injectabl e, quadrivalent, contains preservative Mora Urmetz [facility] Work Phone: [facility] 02-07-2015 influenza virus vaccine, unspecified formulation Arline Lue [facility] 02-07-2015 influenza, injectabl e, quadrivalent, preservative free Mora Urmetz [facility] Work Phone: [facility] 10-23-2014 pneumococcal polysaccharide vaccine, 23 valent Mora Urmetz [facility] Work Phone: [facility] 12-31-2010 influenza virus vaccine, unspecified formulation Arline Lue [facility] 12-31-2010 influenza, seasonal, injectable Mora Urmetz [facility] Work Phone: [facility] 03-06-2009 novel [id number], preservative-free, injectable Mora Urmetz [facility] Work Phone: [facility] 02-09-2008 influenza virus vaccine, whole virus Mora Powell [facility] Work Phone: [facility] 02-09-2008 influenza, whole Arline Levine [facility] NEGATED: Highlighted row has not occurred!12-10-2021 SARS-CoV-2 mRNA (tozinameran 5y-11y) vaccine Arline Levine [facility] Payers Date Payer Category Payer Medicaid [id number] 2011 Medicare [id number] 2011 Medicare FFS [id number] 1980 Unknown [id number] 2.16.84 0.1.945925.3.579.2.593 1980 Unknown [id number] 2.16.84 0.1.763721.3.579.2.593 1980 Unknown [id number] 2.16.84 0.1.158054.3.579.2.593 1980 Unknown [id number] 2.16.84 0.1.057697.3.579.2.593 1980 Unknown [id number] 2.16.8 40.1.547834.3.579.2.727 1980 Unknown [id number] 2.16.8 40.1.565880.3.579.2.727 1980 Unknown [id number] 2.16.84 0.1.269410.3.579.2.1259 1980 Unknown [id number] 2.16.84 0.1.041297.3.579.2.1259 1980 Unknown [id number] 2.16.84 0.1.906793.3.579.2.1259 1980 Unknown [id number] 2.16. 840.1.212253.3.579.2.732 1980 Unknown [id number] 2.16. 840.1.665986.3.579.2.732 1980 Unknown [id number] 2.16. 840.1.318137.3.579.2.732 1980 Unknown [id number] 2.16. 840.1.151260.3.579.2.732 1980 Unknown [id number] 2.16. 840.1.373265.3.579.2.732 1980 Unknown [id number] 2.16. 840.1.648947.3.579.2.732 1959 Medicaid [id number] 2. 16.840.1.221936.19 1959 Medicare [id number] 2.1 6.840.1.899610.19 1953 Unknown [id number] 2.16.84 0.1.907791.3.579.2.593 1953 Unknown [id number] 2.16.84 0.1.096407.3.579.2.593 1953 Unknown [id number] 2.16.84 0.1.378932.3.579.2.593 1953 Unknown [id number] 2.16.84 0.1.152961.3.579.2.593 1953 Unknown [id number] 2.16.84 0.1.650359.3.579.2.593 1953 Unknown [id number] 2.16.84 0.1.040842.3.579.2.593 1953 Unknown [id number] 2.16.84 0.1.509540.3.579.2.593 1953 Unknown [id number] 2.16.84 0.1.177459.3.579.2.593 1953 Unknown [id number] 2.16.84 0.1.006125.3.579.2.593 1953 Unknown [id number] 2.16.84 0.1.043957.3.579.2.593 1953 Unknown [id number] 2.16.84 0.1.254026.3.579.2.593 1953 Unknown [id number] 2.16.84 0.1.334014.3.579.2.593 1953 Unknown [id number] 2.16.84 0.1.204727.3.579.2.593 1953 Unknown [id number] 2.16.84 0.1.333199.3.579.2.593 Self-pay Self Pay [id number] Social History Date Type Detail Facility Tobacco smoking status No Smokin g Status Entered [facility] Start: 11-02-2022 End: 05-31-2024 Sex Assigned At Male [facility] Start[facility] 03-28-2020 [facility] Start: 1980 [facility] No Smokin g Status Entered [facility] Start: 11-02-2022 End: 12-16-2022 Tobacco smoking status Never smoked tobacco (finding) [facility] Tobacco smoking status Never [facility] Start: 1980 Sex Assigned At Male [facility] Start: 11-02-2022 End: 05-31-2024 Alcoholic beverage intake Ex-drinker (finding) [facility] Start: 11-02-2022 End: 05-31-2024 History of Social function [facility] Start: 02-21-2012 End: 07-11-2024 Sex Male (finding) [facility] Functional Status Date Assessment Result Facility 12-16-2022 Functional Status N/A [facility] 12-10-2021 Functional Status N/A [facility] 10-22-2021 Functional Status N/A [facility] Clinical Notes 10-22-2021 to 06-12-2024 Addendum [...] Beatris Thompson DDS 06/12/2024 6:59 AM [facility] 06-02-2024 Note Addended by: BOYD HARRY on: 06/02/2024 05:54 PM Modules accepted: Orders [facility] 06-02-2024 Miscellaneous Notes Addended by: BOYD HARRY on: 06/02/2024 05:54 PM Modules accepted: Orders documented in this encounter [facility] 06-02-2024 Note EXAMINATION: XR CHES T [...] and agree with the resident's interpretation. 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 Contact the Pre-Surgical Evaluation department at [phone] or your surgeon's office with any additional questions [facility] 06-02-2024 Instructions Сергей Alves MD [...] procedure. Contact the Pre-Surgical Evaluation department at [phone] or your surgeon's office with any additional questions documented in this encounter [facility] 06-02-2024 Evaluation note Pre-Admission Testing Consultation Parish Lopez, [id number] 44 year old Male 06/02/2024 Consult placed to [facility] by Dr. Zamora due to significant PMH [...] No STOP BANG: STOP-BANG Row Name 06/02/24 3206 History of sleep apnea? No Snoring No [...] 1 extraction; Surgeon: Ap Scott DDS; Location: [facility] [place]; Service: Dental Past Medical History and Review of Systems Pulmonary (+) COPD (-) sleep apnea Dental ROS (+) teeth problems missing Endo (+) hyperthyroidism Neuro/Psych (+) seizures Comment: intellectual disability Vagus nerve stimulator Cardiovascular (+) hyperlipidemia (-) hypertension, past NV, CAD, angina GI/Hepatic/Renal (+) GERD (-) renal [...] - referring and communicating with other health laboratory animal caretaker (when not separately reported) - documenting clinical information in the electronic or other health record - independently interpreting results (not separately reported) and communicating results to the patient/family/caregiver - care coordination (not separately reported). Interviewer signature: Сергей Alves MD 1:35 PM 06/02/2024 Cosigned by Jonnie Aguilar MD at 06/02/2024 2:05 PM EST [facility] 06-02-2024 Miscellaneous Notes Formattin g of this note is different from the original. Pre-Admission Testing Consultation Parish Lopez, [id number] 44 year old Male 06/02/2024 Consult placed [...] 1 extraction; Surgeon: Ap Scott DDS; Location: [facility] [place]; Service: Dental Past Medical History and Review of Systems Pulmonary (+) COPD (-) sleep apnea Dental ROS (+) teeth problems missing Endo (+) hyperthyroidism Neuro/Psych (+) seizures Comment: intellectual disability Vagus nerve stimulator Cardiovascular (+) hyperlipidemia (-) hypertension, past NV, CAD, angina GI/Hepatic/Renal (+) GERD (-) renal [...] - referring and communicating with other health laboratory animal caretaker (when not separately reported) - documenting clinical information in the electronic or other health record - independently interpreting results (not separately reported) and communicating results to the patient/family/caregiver - care coordination (not separately reported). Interviewer signature: Сергей Alves MD 1:35 PM 06/02/2024 Cosigned by Jonnie Aguilar MD at 06/02/2024 2:05 PM EST documented in this encounter [facility] 06-02-2024 Note Pre-Admission Testin g Consultation Parish Lopez, [id number] 44 year old Male 06/02/2024 Consult placed to [facility] by Dr. Zamora due to significant PMH of Seizures, mental disability, hypothyroid undergoing dental restorations 06/12 [facility] Triage Risk Score Total Score: 2 2 [...] 1 extraction; Surgeon: Ap Scott DDS; Location: [facility]; Service: Dental Past Medical History and Review of Systems Pulmonary (+) COPD (-) sleep apnea Dental ROS (+) teeth problems missing Endo (+) hyperthyroidism Neuro/Psych (+) seizures Comment: intellectual disability Vagus nerve stimulator Cardiovascular (+) hyperlipidemia (-) hypertension, past NV, CAD, angina GI/Hepatic/Renal (+) GERD (-) renal [...] appropriate examinati (more content not included)... 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 documented in this encounter [facility] 03-07-2024 History of Presen t illness Narrative [...] Life: 06/20 full Model: Oj Rocha #: [id number] Manufactured: 2019 Implant Date: 09/09/2021 Assessment/Plan Diagnoses [...] clinic: 6 months. documented in this encounter [facility] 01-05-2023 Evaluation note Encounter Date Diagnosis Assessment Notes Dec, COPD (chronic obstructive pulmonary disease) (ICD-10 - J44.9) [facility] Other 08-30-2023 Hospital Discharge instructions Patient Education [...] provider. Document Revised: 08/14/2021 Document Reviewed: 08/14/2021 [employer] Patient Education 2022 [place]. Follow Up Care 12/10/2021 11:51:23 With:Abner BYRNE, JUNIOR Hawk, URO Address: When: Unknown Comments:LENORA [facility] 03-07-2023 Evaluation note* Encounter Date Diagnosis Assessment Notes Treatment Notes Treatment Clinical Notes Jun, COPD (chronic obstructive pulmonary disease) (ICD-10 - J44.9) Continue with respiratory regemin, including VEST therapy, as you currently are doing. Call office with respiratory questions or concerns. [facility] Other 09-06-2022 Evaluation note* Encounter Date Diagnosis Assessment Notes Treatment Notes Treatment Clinical Notes Dec, COPD (chronic obstructive pulmonary disease) (ICD-10 - J44.9) Continue with VEST therapy twice a day. Ok to increase to TID if needed. [facility] Other 08-30-2022 Instructions* Patient Instructions* Mora Powell RDH - 12/16/2021 11:57 AM EDT Pt presented today for OR evaluation. Limited eval was completed. Pt's case is not urgent updated contact information and placed Pt on OR list. Step by step process for OR flyer was given to caregiver. Please wait for phone call from OR coordinator. documented in this [id number] History of Present illness Narrative* Mora Powell RDH - 12/16/2021 11:42 AM EDT ----- Thursday, December 16, 2021 at 12:03:50 PM ----- ----- Provider: [id number] Irizarry -- Clinic: [place] ----- [facility], Pt is ready for tx. Pt presented for dental evaluation for future OR. Caregiver in the room. Patient is non-verbal. Severe intellectual disability, seizure disorder Caregiver stated patient is not pain and no complaining. Radiograph taken today: no possible due to patient behavior Case requested for OR. Guardian mother Katia Lopez. [phone]. [facility] [phone] [id number] ( [facility]'s appt) AVS printed and handed flyer for step by step instruction of OR process to Caregiver exam By: Elliott Ham [facility]. OR ----- Signed on Thursday, December 16, 2021 at 12:18:18 PM ----- ----- Provider: Julia Adams DDS -- Clinic: [place] ----- documented in this [id number] Hospital Discharge instructions Patient Education 12/10/2021 11:47:35 [...] nerve stimulation). For women, using a director of medical education to prevent urine leaks. This is a [...] right after experiencing incontinence. General instructions Take bhjy-mqq-arqwapz and prescription medicines only as told by [...] 05/13/2005 Document Revised: 04/15/2018 Document Reviewed: 07/15/2017 [employer] Patient Education 2020 [employer]. Follow Up Care 10/22/2021 11:38:20 With:Abner BYRNE, Arline Little URDominga, URO Address: When:1 year Comments:W/ renal US [facility] Nataliya 07-06-2022 Hospital Discharge instructions Patient [...] nerve stimulation). For women, using a director of medical education to prevent urine leaks. This is a [...] right after experiencing incontinence. General instructions Take maxm-vmh-xfxetyy and prescription medicines only as told by [...] 05/13/2005 Document Revised: 04/15/2018 Document Reviewed: 07/15/2017 [employer] Patient Education 2020 [employer]. 10/22/2021 11:42:30 Renal Mass Renal Mass A [...] provider gives to you. In general: Take wrjn-hao-thjedto and prescription medicines only as told by [...] 10/31/2014 Document Revised: 05/12/2018 Document Reviewed: 05/12/2018 [employer] Patient Education 2020 [place]. Follow Up Care 09/22/2021 14:10:46 With:Arline Levine MD, JUNIOR, URO Address: When:1 month [facility] evaluation + Plan note Future Appointments Appointment Date:11/19/2021 10:00:00 AM Scheduled Provider:Arline Levine MD Location:[facility] Appointment Type:URO Office Visit [facility] evaluation + Plan note Future Appointments Appointment Date:12/16/2022 10:15:00 AM Scheduled Provider:Arline Levine MD Location:[facility] Appointment Type:URO Office Visit [facility] evaluation note* Diagnosis Onset Date Resolution Status COPD (chronic obstructive pulmonary disease) acute Severe intellectual disability acute [facility] Work Phone: Evaluation note* Diagnosis Generalized [...] acute July 11, 2024 9:09am [facility] Work Phone: Evaluation note* Diagnosis Preop examination- [...] History COPD Surgical History VNS REPLACED 2021 [facility] Other Hospital course Narrative No data available for this section [facility] Hospital Discharge instructions No data available for this section [facility] No data available for this section [facility] Summary Purpose Family History No Family [...] Care Team (unrecognized sect ion and content) Store Stock Associate Relationship Specialty Start Date End Date Abundio Mares DDS [address] [id number] Resident Dentistry 02/23/20 Store Stock Associate Relationship Specialty Start Date End Date Abundio Mares DDS [address] [place] [address] Resident Dentistry 02/23/20 Team Status: Active Member Role Status Dates Fam Acevedo DO Primary Care Provider Active Team Status: Inactive Member Role Status Dates Fam Acevedo DO Primary Care Provider Active Start: July 06, 2023 End: July 06, 2023 Antionette Castaneda APRN [facility] Attending Provider Active Start: July 06, 2023 End: July 06, 2023 Store Stock Associate Relationship Specialty Start Date End Date Abundio Mares DDS [address] [place] [address] Resident Dentistry 02/23/20 Team Status: Inactive Member Role Status Dates Fam Acevedo DO Primary Care Provider Active Start: January 11, 2024 End: January 11, 2024 Antionette Castaneda APRN [facility] Attending Provider Active Start: January 11, 2024 End: January 11, 2024 [facility] Active Start: 2023 End: January 11, 2024 Store Stock Associate Relationship Specialty Start Date End Date Unallocated, Rossi Fermin MD [address] [place] [id number] PCP - General 09/23/22 Fam Acevedo MD [facility] [employer] [address] [place] [address] Referring Physician Orthopaedic Surgery 09/23/22 Store Stock Associate Relationship Specialty Start Date End Date Unallocated, Rossi Fermin MD [address] [place] [id number] PCP - General 09/23/22 Fam Acevedo MD [facility] [employer] [address] [place] [address] Referring Physician Orthopaedic Surgery 09/23/22 Store Stock Associate Relationship Specialty Start Date End Date Abundio Mares DDS [address] [place] [address] Resident Dentistry 02/23/20 Store Stock Associate Relationship Specialty Start Date End Date Abundio Mares DDS [address] [place] [address] Resident Dentistry 02/23/20 Store Stock Associate Relationship Specialty Start Date End Date Unallocated, [place] Provider, [address] [place] [address] PCP - General 09/23/22 Fam Acevedo MD [address] [employer] [address] [place] [address] Referring Physician Orthopaedic Surgery 09/23/22 Team Status: Inactive Member Role Status Dates Fam Acevedo DO Primary Care Provider Active Start: July 11, 2024 End: July 11, 2024 Antionette Castaneda APRN [facility] Attending Provider Active Start: July 11, 2024 End: July 11, 2024 Store Stock Associate Relationship Specialty Start Date End Date VishnuAbundio barron DD [address] [place] [address] Resident Dentistry 02/23/20 Store Stock Associate Relationship Specialty Start Date End Date Abundio Mares DDS [address] [place] [address] Resident Dentistry 02/23/20 REASON FOR VISIT (unrecogniz ed section and content) Reason Comments Seizures Reason Comments Pre-surgical Evaluation (unrecognized sect ion and content) No Status Records FoundNo Status Records FoundNo Status Records FoundNo Status Records Found INFORMATION SOURCE (unrecogn ized section and content) DATE CREATED AUTHOR 08/05/2022 [facility] DATE CREATED AUTHOR AUTHOR'S ORGANIZ ATION 01/26/[address] [facility] DATE CREATED AUTHOR AUTHOR'S ORGANIZ ATION 06/02/2024 [facility] DATE CREATED AUTHOR AUTHOR'S ORGANIZ ATION 06/19/2024 [facility] Goals (unrecognized section and content) Goals [...] BE BASED ON THE PRIMARY CLINICAL RECORDS. [employer] [facility]. provides no warranty or guarantee of the accuracy or completeness of information in this document.
[2024-11-03 06:50] VITALS: PULSE 80
[2024-11-03 06:58] VITALS: PULSE 78
--- NOTE | 2024-11-03 07:12 | ECG_ITS ---
The [facility] Test Date: 2024-11-03 Pat Name: FRANCOIS LOPEZ Department: Room: - Gender: Male Electroencephalograph Technologist: : 1980 Requested By: [id number] Order Number: [id number] Reading MD: THEODORE BOWEN Measurements Intervals Rumely Rate: 69 P: 50 MT: 134 QRS: 54 QRSD: 86 T: 19 QT: 388 QTc: 407 Interpretive Statements 1100 Sinus rhythm 9110 normal ECG Compared to ECG 02/11/2023 04:36:29 Sinus tachycardia no longer present Electronically Signed On 11-03-2024 10:07:28 EDT by THEODORE BOWEN
--- NOTE | 2024-11-03 07:13 | CT_ITS ---
The [address] [address] Patient Name: FRANCOIS LOPEZ MRN: [id number] date: 1980 Sex: M Assigned Patient Location: ER Current Patient Location: ER Accession/Order Number: [id number] Exam Date: 11/03/2024 08:10 Report Date: 11/03/2024 08:13 At the request of: LALI COOK MD Procedure: CT head/brain wo con CT BRAIN WITHOUT CONTRAST: CLINICAL HISTORY: seizure activity COMPARISON: 05/10/2023 TECHNIQUE: Contiguous axial unenhanced images were obtained through the brain. This CT exam was performed using one or more following dose reduction techniques: Automated exposure control, adjustment of the mA and/or kV according to patient size, or use of iterative reconstruction technique. FINDINGS: The ventricles are normal in size and position. There are no areas of abnormal attenuation. There is no hemorrhage, mass effect or extra-axial collections. There is polypoid right maxillary mucosal thickening. The remaining imaged paranasal sinuses and mastoid air cells are clear. CT/CT head/brain wo con IMPRESSION: NO ACUTE INTRACRANIAL ABNORMALITY. Impression dictated by: Princess Nye M.D. 11/03/2024 8:13 AM Dictation Location: [place] [address] Electronically authenticated by: [id number] Y Date: 11/03/2024 08:13
--- NOTE | 2024-11-03 07:52 | ED.GENADUL1 ---
HPI HPI - General Adult General Chief complaint: Seizure Stated complaint: SEIZURE Time Seen by Provider: 11/03/24 07:04 Source: EMR and medical record Mode of arrival: ambulance Limitations: altered mental status History of Present Illness HPI narrative: 44-year-old male presents to the emergency department after having had a seizure. He lives in a facility and according to caregiver he had 4 seizures each minute long. It is not unusual for him to have a seizure, but having for is unusual. The patient is unable to give any history. No history of fever or trauma. Related Data Home Medications ?Medication ?Instructions ?Recorded ?Confirmed acetaminophen 325 mg capsule 650 mg PO Q4H PRN fever or pain 10/27/22 11/03/24 acetaminophen 650 mg rectal 650 mg NE Q4H PRN fever 10/27/22 11/03/24 suppository alendronate 70 mg tablet 70 mg PO .COMPLEX 10/27/22 05/11/23 atorvastatin 10 mg tablet 10 mg PO QPM 10/27/22 11/03/24 budesonide 0.5 mg/2 mL suspension 0.5 mg inhalation BID 10/27/22 11/03/24 for nebulization cholecalciferol (vitamin D3) 125 125 mcg PO DAILY 10/27/22 11/03/24 mcg (5,000 unit) capsule clobazam 10 mg tablet 10 mg PO BID 10/27/22 11/03/24 clonazepam 0.25 mg disintegrating 0.25 mg translingual Q12H PRN as 10/27/22 11/03/24 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 diazepam 5 mg-7.5 mg-10 mg rectal 10 mg NE .COMPLEX PRN if 3 or more 10/27/22 11/03/24 kit seizures in 2hrs docusate sodium 100 mg tablet (DOK) 200 mg PO DAILY 10/27/22 11/03/24 felbamate 400 mg tablet 400 mg PO TID 10/27/22 11/03/24 fenofibrate nanocrystallized 145 145 mg PO DAILY 10/27/22 11/03/24 mg tablet furosemide 20 mg tablet 20 mg PO DAILY 10/27/22 11/03/24 glycopyrrolate 1 mg tablet 1 mg PO BID 10/27/22 11/03/24 guaifenesin 400 mg tablet (Chest 400 mg PO BID 10/27/22 11/03/24 Congestion Relief) ipratropium 0.5 mg-albuterol 3 mg 3 ml inhalation TID 10/27/22 11/03/24 (2.5 mg base)/3 mL nebulization soln lactulose 10 gram/15 mL oral 60 g PO BID 10/27/22 11/03/24 solution levetiracetam 750 mg tablet 1,500 mg PO .MORNING 10/27/22 11/03/24 levothyroxine 150 mcg tablet 150 mcg PO DAILY 10/27/22 11/03/24 linaclotide 145 mcg capsule 145 mcg PO DAILY 10/27/22 11/03/24 (Linzess) loratadine 10 mg tablet 10 mg PO DAILY 10/27/22 11/03/24 magnesium oxide 400 mg (241.3 mg 400 mg PO DAILY 10/27/22 11/03/24 magnesium) tablet montelukast 10 mg tablet 10 mg PO QPM 10/27/22 11/03/24 omeprazole 40 mg capsule,delayed 40 mg PO DAILY 10/27/22 11/03/24 release oxcarbazepine 300 mg tablet 300 mg PO BID 10/27/22 11/03/24 oxcarbazepine 600 mg tablet 600 mg PO BID 10/27/22 11/03/24 polyethylene glycol 3350 17 17 g PO DAILY 10/27/22 11/03/24 gram/dose oral powder rifaximin 550 mg tablet (Xifaxan) 550 mg PO BID 10/27/22 11/03/24 sodium chloride-aloe vera nasal 2 spray intranasal TID dry nasal 10/27/22 11/03/24 spray (Climax Saline Gel nasal spray) passages tamsulosin 0.4 mg capsule 0.4 mg PO DAILY 10/27/22 11/03/24 albuterol sulfate 2.5 mg/3 mL 2.5 mg inhalation Q6H PRN 02/11/23 11/03/24 (0.083 %) solution for nebulization shortness of breath artificial tears with lanolin eye 1 applic ophthalmic (eye) TID PRN 02/11/23 11/03/24 ointment (Ultra Fresh PM eye dry eye(s) ointment) erythromycin 5 mg/gram (0.5 %) eye 1 applic ophthalmic (eye) TID PRN 02/11/23 11/03/24 ointment eye irritation sennosides 8.6 mg capsule (senna) 17.2 mg PO BID PRN constipation 02/11/23 11/03/24 fluticasone propionate 50 2 spray intranasal DAILY 05/11/23 11/03/24 mcg/actuation nasal spray,suspension (24 Hour Allergy Relief) hydrocortisone 2.5 % topical cream 1 applic topical BID PRN FLARES 05/11/23 11/03/24 bisacodyl 10 mg rectal suppository 10 mg NE TID PRN constipation 11/03/24 11/03/24 denosumab 60 mg/mL subcutaneous 60 mg subcut .EVERY 6 MONTHS 11/03/24 11/03/24 syringe (Prolia) ketoconazole 2 % shampoo 1 applic topical DAILY PRN skin 11/03/24 11/03/24 irritation levetiracetam 500 mg tablet 2,000 mg PO BEDTIME 11/03/24 11/03/24 (Keppra) Allergies Allergy/AdvReac Type Severity Reaction Status Date / Time amoxicillin (From Augmentin) Allergy Unknown Verified 11/03/24 06:45 clavulanic acid (From Allergy Unknown Verified 11/03/24 06:45 Augmentin) Pertussis Vaccines Allergy Unknown Verified 11/03/24 06:45 phenytoin (From Dilantin) Allergy Unknown Verified 11/03/24 06:45 promethazine (From Phenergan) Allergy Unknown Verified 11/03/24 06:45 Opioid HPI Opioid Management Most Recent Opioid Data: Last Pain Scale 0 02/13/23, 14:02 Review of Systems ROS Narrative Not obtainable, psychiatric disorder 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) Pneumonia ?J18.9 - Pneumonia, unspecified organism (ICD-10) Fever ?R50.9 - Fever, unspecified (ICD-10) Fall ?W19.XXXA - Unspecified fall, initial encounter (ICD-10) GERD (gastroesophageal reflux disease) ?K21.9 - Gastro-esophageal reflux disease without esophagitis (ICD-10) Hyperlipidemia ?E78.5 - Hyperlipidemia, unspecified (ICD-10) BPH (benign prostatic hyperplasia) ?N40.0 - Benign prostatic hyperplasia without lower urinary tract symptoms (ICD-10) Small intestinal bacterial overgrowth ?K63.8219 - Small intestinal bacterial overgrowth, unspecified (ICD-10) 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 - Quadriplegia, unspecified (ICD-10) Excessive salivation ?K11.7 - Disturbances of salivary secretion (ICD-10) Osteoporosis ?M81.0 - Age-related osteoporosis without current pathological fracture (ICD-10) ADHD ?F90.9 - Attention-deficit hyperactivity disorder, unspecified type (ICD-10) Hypothyroidism ?E03.9 - Hypothyroidism, unspecified (ICD-10) 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 Smoking status: Never smoker Second hand tobacco smoke exposure: No Non-prescribed substance use: denies use Previous occupational history: disable Known occupational exposures/hazards: No Highest level of school completed/degree received: never attended/kindergarten only Do you want help with school or training: No Are you now , , , , never or living with a partner: don't know Life stressors: unknown source of stress Due to disability, difficulty making decisions: No Do you think of yourself as: don't know Gender Identity: other Gender Identity Comment: unable to communicate Exam Narrative Exam Narrative: Nurses note and vital signs reviewed and patient is not hypoxic. General: The patient appears in no apparent distress. Patient is resting comfortably on cart. He is looking around the room Skin: Warm, dry, no pallor noted. There is no rash noted. Head: Normocephalic, atraumatic Eye: Normal conjunctiva, no drainage Ears, Nose, Mouth, and Throat: oral mucosa is moist. Nares patent. Cardiovascular: Regular Rate and Rhythm Respiratory: Patient is in no distress, no accessory muscle use, lungs are clear to auscultation, no wheezing, rales or rhonchi Back: non-tender GI: Soft and Musculoskeletal: The patient has no evidence of calf tenderness, no pitting edema, symmetrical pulses noted bilaterally Neurological: Awake and alert. He will make some unintelligible sounds and say a few words, not in a sentence. Caregiver states this is baseline for him. Psychiatric: Not able to be assessed Constitutional Vital Signs, click to edit/add: Last Vital Signs Temp 96.9 F L 11/03/24 06:37 Pulse 70 11/03/24 06:37 Resp 18 11/03/24 06:37 BP 113/82 11/03/24 06:37 Pulse Ox 99 11/03/24 06:37 O2 Del Method Room Air 11/03/24 06:37 Course Vital Signs Vital signs: Vital Signs Temperature 96.9 F L 11/03/24 06:37 Pulse Rate 70 11/03/24 06:37 Respiratory Rate 18 11/03/24 06:37 Blood Pressure 113/82 11/03/24 06:37 Pulse Oximetry 99 11/03/24 06:37 Oxygen Delivery Method Room Air 11/03/24 06:37 Temperature 96.9 F L 11/03/24 06:37 Pulse Rate 70 11/03/24 06:37 Respiratory Rate 18 11/03/24 06:37 Blood Pressure 113/82 11/03/24 06:37 Pulse Oximetry 99 11/03/24 06:37 Oxygen Delivery Method Room Air 11/03/24 06:37 Medical Decision Making MDM Narrative Medical decision making narrative: His workup is negative including CAT scan of the brain. The caregiver reports that he is at his neurologic baseline and he is released back to home. Differential Diagnosis Differential Diagnosis: Seizures, intracranial hemorrhage, UTI Lab Data Lab results reviewed: Yes I reviewed the patient's lab results Labs: Lab Results 11/03/24 11/03/24 Range/Units 07:47 08:17 WBC 5.1 (4.0-11.0) 10^3/uL RBC 3.85 L (4.70-6.10) 10^6/uL Hgb 12.3 L (14.0-18.0) g/dL Hct 36.3 L (42.0-54.0) % MCV 94.3 H (80.0-94.0) fL MCH 31.9 (25.9-34.0) pg MCHC 33.9 (29.9-35.2) g/dL RDW 13.2 (11.0-15.0) % Plt Count 257 (150-450) 10^3/uL MPV 11.1 (9.5-13.5) fL Neut % (Auto) 40.9 L (43.0-75.0) % Lymph % (Auto) 46.2 (20.5-60.0) % [place] % (Auto) 8.9 (1.7-12.0) % Eos % (Auto) 3.2 (0.9-7.0) % Baso % (Auto) 0.6 (0.2-2.0) % Neut # (Auto) 2.1 (1.4-6.5) 10^3/uL Lymph # (Auto) 2.3 (1.2-3.8) 10^3/uL [place] # (Auto) 0.5 (0.3-0.8) 10^3/uL Eos # (Auto) 0.2 (0.0-0.7) 10^3/uL Baso # (Auto) 0.0 (0.0-0.1) 10^3/uL Abs Immat Gran (auto) 0.01 (0.00-0.03) 10^3/uL Imm/Tot Granulo (auto) 0.2 (0.0-0.5) % Sodium 143 (136-145) mmol/L Potassium 4.0 (3.5-5.1) mmol/L Chloride 104 (98-107) mmol/L Carbon Dioxide 27.6 (21.0-32.0) mmol/L Anion Gap 15.4 BUN 10.0 (7.0-18.0) mg/dL Creatinine 0.45 L (0.70-1.30) mg/dL Est GFR ( Amer) >60 (>=60 mL/min/1.73m^2) Est GFR (Non-Af Amer) >60 (>=60 mL/min/1.73m^2) BUN/Creatinine Ratio 22.2 Glucose 103 (74-106) mg/dL Calcium 8.7 (8.5-10.1) mg/dL Urine Color Lt. yellow (YELLOW) Urine Clarity Clear (CLEAR) Urine pH 7.0 (5.0-9.0) Ur Specific [place] 1.020 (1.005-1.025) Urine Protein Negative (NEG/TRACE) mg/dL Urine Glucose (UA) Negative (NEGATIVE) mg/dL Urine Ketones Trace A (NEGATIVE) mg/dL Urine Occult Blood Large A (NEGATIVE) Urine Nitrite Negative (NEGATIVE) Urine Bilirubin Negative (NEGATIVE) Urine Urobilinogen 0.2 (0.2-1.0) EU/dL Ur Leukocyte Esterase Trace A (NEGATIVE) Urine RBC 20-50 A (0-2) #/HPF Urine WBC 2-5 A (NONE SEEN) #/HPF Ur Squamous Epith Cells Few A (NONE/RARE) #/LPF Urine Crystals None seen (None Seen) #/HPF Urine Bacteria Trace A (NONE SEEN) #/HPF Urine Casts None seen (NONE SEEN) #/LPF Urine Mucus None seen (NONE SEEN) Ur Culture Indicated? No Imaging Data CT scan - head: Radiologist's impression: ITS Impressions Head CT 11/03/24 07:13 IMPRESSION: NO ACUTE INTRACRANIAL ABNORMALITY. Impression dictated by: Princess Nye M.D. 11/03/2024 8:13 AM Dictation Location: [place] [address] Electronically authenticated by: [id number] Y Date: 11/03/2024 08:13 ECG Data Attestation: I personally reviewed and interpreted this ECG as follows: (EKG on my interpretation shows normal sinus rhythm with rate of 69 and no acute change.) Discharge Plan Discharge Chief Complaint: Seizure Clinical Impression: Generalized seizure Patient Disposition: Home, Self-Care Time of Disposition Decision: 09:07 Condition: Good Mode of Transportation: Private Vehicle Prescriptions / Home Meds: No Action alendronate 70 mg tablet 70 mg PO .COMPLEX Rx Instructions: 70 mg orally Every ; atorvastatin 10 mg tablet 10 mg PO QPM budesonide 0.5 mg/2 mL suspension for nebulization 0.5 mg inhalation BID clobazam 10 mg tablet 10 mg PO BID Rx Instructions: docusate sodium [DOK] 100 mg tablet 200 mg PO DAILY felbamate 400 mg tablet 400 mg PO TID Rx Instructions: 0800,1199,1999 fenofibrate nanocrystallized 145 mg tablet 145 mg PO DAILY furosemide 20 mg tablet 20 mg PO DAILY glycopyrrolate 1 mg tablet 1 mg PO BID Rx Instructions: 1999 guaifenesin [Chest Congestion Relief] 400 mg tablet 400 mg PO BID Rx Instructions: ipratropium-albuterol 0.5 mg-3 mg(2.5 mg base)/3 mL solution for nebulization 3 ml INHALATION TID lactulose 10 gram/15 mL solution 60 g PO BID Rx Instructions: 0800,1199,1999 levetiracetam 750 mg tablet 1,500 mg PO .MORNING levothyroxine 150 mcg tablet 150 mcg PO DAILY Linzess 145 mcg capsule 145 mcg PO DAILY loratadine 10 mg tablet 10 mg PO DAILY magnesium oxide 400 mg (241.3 mg magnesium) tablet 400 mg PO DAILY montelukast 10 mg tablet 10 mg PO QPM omeprazole 40 mg capsule,delayed release(DR/EC) 40 mg PO DAILY oxcarbazepine 300 mg tablet 300 mg PO BID oxcarbazepine 600 mg tablet 600 mg PO BID polyethylene glycol 3350 17 gram/dose powder 17 g PO DAILY tamsulosin 0.4 mg capsule 0.4 mg PO DAILY cholecalciferol (vitamin D3) 125 mcg (5,000 unit) capsule 125 mcg PO DAILY Xifaxan 550 mg tablet 550 mg PO BID Climax Saline Gel [place],Non-Aerosol 2 spray intranasal TID Rx Instructions: 0800,1599,1999 acetaminophen 325 mg capsule 650 mg PO Q4H PRN (Reason: fever or pain) acetaminophen 650 mg suppository 650 mg NE Q4H PRN (Reason: fever) clonazepam 0.25 mg tablet,disintegrating 0.25 mg translingual Q12H PRN (Reason: as needed for cluster of 5 seizures) diazepam 5-7.5-10 mg kit 10 mg NE .COMPLEX PRN (Reason: if 3 or more seizures in 2hrs) Rx Instructions: 10 mg rectally PRN; 10 mg rectally may repeat in 2hrs as needed PRN; albuterol sulfate 2.5 mg /3 mL (0.083 %) solution for nebulization 2.5 mg inhalation Q6H PRN (Reason: shortness of breath) Ultra Fresh PM Ointment 1 applic ophthalmic (eye) TID PRN (Reason: dry eye(s)) erythromycin 5 mg/gram (0.5 %) ointment 1 applic ophthalmic (eye) TID PRN (Reason: eye irritation) senna 8.6 mg capsule 17.2 mg PO BID PRN (Reason: constipation) Rx Instructions: IF NO BM IN 4 DAYS fluticasone propionate [24 Hour Allergy Relief] 50 mcg/actuation spray,suspension 2 spray intranasal DAILY Rx Instructions: administer into each nostril hydrocortisone 2.5 % cream 1 applic TOPICAL BID PRN (Reason: FLARES) Rx Instructions: NEEDED FOR FLARES levetiracetam [Keppra] 500 mg tablet 2,000 mg PO BEDTIME Prolia 60 mg/mL syringe 60 mg subcut .EVERY 6 MONTHS bisacodyl 10 mg suppository 10 mg NE TID PRN (Reason: constipation) ketoconazole 2 % shampoo 1 applic topical DAILY PRN (Reason: skin irritation) Print Language: Qatari Instructions: Recurrent Seizures in Adults (ED) Referrals: ERIKA VENTURA DO [Primary Care Provider, Family Practice] - 1 week
[2024-11-03 08:01] LABS: Anion Gap 15.4; Blood Urea Nitrogen 10.0 mg/dL (7.0-18.0); Calcium 8.7 mg/dL (8.5-10.1); Carbon Dioxide 27.6 mmol/L (21.0-32.0); Chloride 104 mmol/L (98-107); Estimated GFR (African America >60 (>=60 mL/min/1.73m^2); Estimated GFR (Non-African Ame >60 (>=60 mL/min/1.73m^2); Glucose 103 mg/dL (74-106); Potassium 4.0 mmol/L (3.5-5.1); Sodium 143 mmol/L (136-145)
[2024-11-03 08:06] LABS: Hematocrit 36.3 % (42.0-54.0); Hemoglobin 12.3 g/dL (14.0-18.0); Immature Granulocytes Abs Auto 0.01 10^3/uL (0.00-0.03); Immature Granulocytes Pct Auto 0.2 % (0.0-0.5); Lymphocytes Absolute Auto 2.3 10^3/uL (1.2-3.8); Mean Corpuscular HGB Conc 33.9 g/dL (29.9-35.2); Mean Corpuscular Hemoglobin 31.9 pg (25.9-34.0); Mean Corpuscular Volume 94.3 fL (80.0-94.0); Platelet Count 257 10^3/uL (150-450); Red Blood Count 3.85 10^6/uL (4.70-6.10); White Blood Count 5.1 10^3/uL (4.0-11.0)
[2024-11-03 08:28] LABS: Glucose Urine UA NEGATIVE (NEGATIVE)
[2024-11-03 08:43] LABS: Cast Seen? NONE SEEN #/LPF (NONE SEEN); Crystals Seen? None Seen #/HPF (None Seen); Urine Culture Indicated NO
[2024-11-03 09:30] VITALS: BP 132/77
[2024-11-03 09:34] VITALS: TEMP 36.1
== END 2024-11-03 10:03 | disposition home or self-care (01) ==
PROVIDERS: Emergency Provider Emergency Medicine; PCP Family Medicine
DX: G40.409 Other generalized epilepsy and epileptic syndromes, not intractable, without status epilepticus (principal)
CPT/HCPCS: 36415; 70450; 80048; 81001; 85025; 93005; 99285

== ENCOUNTER 2024-12-04 13:20 | Outpatient (OUT) | payer MEDICARE, MEDICAID, SELFPAY ==
--- OUTSIDE RECORDS SUMMARY | 2024-12-04 13:22 | XMS_ITS | Clinical Summary ---
Author Organization [facility] Address [facility] [place]-[id number] [address] [place] [address] Care Team Providers Care Case Management Manager Name Role Phone Andreia Kiser Primary Care Provider [phone] Allergies Active Allergy Reactions Criticality Noted Date [...] history exists Medical Devices Implanted Type Area Development Writer Device Identifier Shelf Expiration Date Model / Serial / Lot Vns Therapy Aspiresr Implanted:Qty: 1 on 09/09/2021 by Jared Varner MD at [facility] Left: Chest OTHER 04/03/2023 106 / [id number] / Description:BATTERY EXCHANGE Insurance MEDICARE MEDICAID [place] Advance Directives Documents on File Type Date Recorded Patient Solution Analyst Expl anation Living Will 09/09/2021 7:20 AM DNR Care Teams Case Management Manager Relationship Specialty Start Date End Date Andreia Kiser DO [address] [place] [id number] PCP - General Neurology 07/24/21
--- OUTSIDE RECORDS SUMMARY | 2024-12-04 13:22 | XMS_ITS | Clinical Summary ---
Author Organization [facility] Address [address] [place], [place] [id number] Care Team Providers Care Ticket Clerk Name Role Phone Rosario Shaw MD Primary Care Provider [phone] Social History Tobacco Use Types Packs/Day Years Used Date Smoking Tobacco: Never Assessed Sex and Gender Information Value Date Recorded Sex Assigned at Not on file Legal Sex Male 8:53 AM EST Gender Identity Not on file Sexual Orientation Not on file Plan of Treatment Not on file Insurance MEDICARE MEDICAID [place] Care Teams Ticket Clerk Relationship Specialty Start Date End Date Rosario Shaw MD [address] [place] [address] [facility] - General 07/28/00
--- OUTSIDE RECORDS SUMMARY | 2024-12-04 13:23 | XMS_ITS | Clinical Summary ---
Author Organization [facility] Address [address] [place] [id number] Care Team Providers Care Residential Youth Counselor Name Role Phone Unavailable Primary Care Provider [...] of 3 - 19+ 3-dose series) 02/01/1999 HPV Vaccine (1 - 3-dose SCDM series) 02/01/2007 COVID-19 Vaccine (2023-2 5 season) 2023 Influenza Vaccine (#1) 2024 [...]
--- OUTSIDE RECORDS SUMMARY | 2024-12-04 13:23 | XMS_ITS | Clinical Summary ---
Author Organization [facility] Address [address], [address] [place] [address] Care Team Providers Care Lead Simulation Modeling Engineer Name Role Phone Unavailable Primary Care Provider [...] times daily Active Multiple Vitamins-Minera ls (THERAPEUTIC MULTIVITAMIN-RI NERALS) tablet Take 1 tablet by mouth [...] on file Medical Devices Implanted Type Area Drill Sergeant Device Identifier Shelf Expiration Date Model / Serial / Lot Generator Aspire Sr - [id number] Implanted:Qty: 1 on 05/12/2016 by Beni Martin MD at [facility] Neuro/Mary nt [employer]PMM 01/06/2018 106 / [id number] / Insurance MEDICARE MEDICAID [place]
--- OUTSIDE RECORDS SUMMARY | 2024-12-04 13:23 | XMS_ITS | Clinical Summary ---
Author Organization [facility] Address [address] [place] [address] Care Team Providers Care Plant Protection Guard Name Role Phone Fam Acevedo MD Unavailable [phone] Unallocated, [facility] Provider MD Primary Care Provi [...] 02/10/2017, 02/07/2015, Additional history exists [place] [address] MEDICAID [place] Care Teams Plant Protection Guard Relationship Specialty Start Date End Date Unallocated, [facility] ProviderMD [address] [place] [address] PCP - General 09/23/22 Fam Acevedo MD [facility] [employer] [address] [place] [address] Referring Physician Orthopaedic Surgery 09/23/22
--- OUTSIDE RECORDS SUMMARY | 2024-12-04 13:38 | XMS_ITS | CCD ---
Author Organization [facility] CliniSyhi Care Team Providers Care Wrapper Stitcher Name Role Phone FAM ACEVEDO Primary Care [...] ACEVEDO, DR FAM Duran Attending Unavailable [employer] Unavailable RASHEL, DR FRIAS Attending Unavailable [...] HAY ., DR FIELDS Admitting Unavailable [employer] Unavailable Arline Levine Attending Unavailable ACEVEDO, FAM Referring Unavailable ACEVEDO, FAM Attending Unavailable ACEVEDO, FAM Admitting Unavailable Abundio Mares DDS Unavailable Fam Acevedo MD Unavailable [phone] Unallocated , [place] Provider Primary Care Provi scotty RODRIGUEZ KISER Attending Unavailable RASHEL, RODRIGUEZ Attending Unavailable RODRIGUEZ KISER Attending Unavailable BOYD HARRY Referring Unavailable PROVIDER, UNKNOWN Admitting Unavailable PROVIDER, UNKNOWN Attending Unavailable PROVIDER, UNKNOWN Admitting Unavailable AL-MASHNI, AP Attending Unavailable PROVIDER, UNKNOWN Attending Unavailable AL-MASHNI, AP Referring Unavailable PROVIDER, UNKNOWN Admitting Unavailable PROVIDER, UNKNOWN Attending Unavailable PROVIDER, UNKNOWN Admitting Unavailable BOYD HARRY Attending Unavailable PROVIDER, UNKNOWN Admitting Unavailable AL-MASHNI, AP Admitting Unavailable AL-MASHNI, AP Attending Unavailable Allergies Allergy Classification Reported Allergen(s) Allergy Type Date of Onset Reaction(s) Facility (8 sources) Amoxicillin / Clavulanate; Translations: [amoxicillin-clav ulanate] Drug Allergy Unknown [facility] (17 sources) Phenytoin; Translations: [phenytoin] Drug Allergy 3 Unknown [facility] (20 sources) Promethazine; Translations: [promethazine] Drug Allergy 7 Unknown [facility] (17 sources) Phenytoin; Translations: [PHENYTOIN SODIUM EXTENDED] Drug Allergy 7 Unknown [facility] (17 sources) Amoxicillin-Pot Clavulanate; Translations: [AMOXICILLIN-POT CLAVULANATE] Propensity to adverse reactions to drug 7 Unknown [facility] (6 sources) 4-Aminobenzoic Acid; Translations: [PERTUSSIS VACCINES] Drug Allergy 5 [facility] (1 source) Amoxicillin / Clavulanate Drug Allergy 4 [facility] (1 source) Levamisole Drug Allergy 4 [facility] (1 source) metroNIDAZOLE Drug Allergy [facility] (1 source) Phenytoin Drug Allergy 4 [facility] (1 source) remdesivir (investigational use) Drug allergy (disorder) [facility] (9 sources) Amoxicillin Drug Allergy 3 Unknown [facility] (7 sources) Clavulanate Drug Allergy 3 Unknown [facility] Medications Current Medications Medication Drug Class(es) Dates Sig (Normalized) Sig (Original) albuterol 0.833 mg/ml / ipratropium bromide 0.167 mg/ml inhalation solution (10 sources) Anticholinergic, beta2-Adrenergic Agonist Start: 03-28-2020 take 1 mL by inhalation three times daily Ipratropium-Albuter ol 0.5 mg-3 mg(2.5 mg base)/3 mL solution [...] day Active budesonide 0.25 mg/ml inhalation suspension (17 sources) Corticosteroid Start: 06-28-2023 take 0.5 mg [...] day Active cholecalciferol 0.125 mg oral capsule (4 sources) Vitamin D take 1 capsule by mouth once daily Cholecalciferol (Vitamin D3) 125 MCG (5000 UT) CAPS Take 125 mcg by mouth daily. Active clonazePAM 0.25 mg disintegrating oral tablet (10 sources) Benzodiazepine Start: 03-28-20 Clonazepam Active 0.25 MG TRANSLINGU Twice daily March 28, 2020 1:00am Start: 03-28-2020 Clonazepam 0.2 5 mg Tablet,Disintegrating Active 0.25 MG TRANSLINGU Twice daily as needed for Cluster of 5 seizures March 28, 2020 1:00am Cough and Chest Congestion (4 sources) Start: 10-22-2021 Cough and Ches t Congestion Refill(s) 0 Start Date: 10/22/21 Status: Ordered 1 ml denosumab 60 mg/ml prefilled syringe (4 sources) RANK Ligand Inhibitor denosumab (Prolia) 60 MG/ML injection Inject 60 mg under the skin. Every 6 months Active diazePAM 10 mg oral tablet (17 sources) Benzodiazepine Start: 10-22-2021 take 1 mg rectal route once Diastat AcuDial adult mg, Rectal, Once, Refills(s) 0 Start Date: 10/22/21 Status: Ordered Start: 03-28-2020 End: 07-06-2023 take 1 tablet rectal route every two hours as needed Diazepam 10 mg tablet Active 5 MG PO Q2H as needed for 3 or more seizures July 06, 2023 10:24am 10MG RECTAL GEL, PATIENT TAKES IT NH - wont let me save without route. Start: 03-28-2020 End: 07-06-2023 apply 10 mg rectal route every two hours Diazepam Active 5 MG PO Q2H July 06, 2023 10:24am 10MG RECTAL GEL, PATIENT TAKES IT NH - wont let me save without route. Start: 07-05-2015 diazepam 10 mg , Rectal, PRN Seizure, Refills(s) 0 Start Date: 07/05/15 Status: Ordered diazePAM (DIASTA T) 10 MG rectal gel Insert 1 Each in the rectum as needed for Other (for 3 or more seizures in 2 hours; may repeat in 2 hours as needed). Active docusate sodium 100 mg oral capsule (20 sources) Start: 10-22-2021 take 1 capsule by [...] take 1 capsule by mo uth every twenty-four hours Docusate Sodium 100 MG [...] Status: Ordered fenofibrate 145 mg oral tablet (14 sources) Peroxisome Proliferator Receptor alpha Agonist Start: [...] day Active glycopyrrolate 1 mg oral tablet (20 sources) Start: 10-22-2021 take 1 tablet by [...] AM Active loratadine 10 mg oral tablet (5 sources) Start: 12-16-2022 loratadine 10 mg Tab [...] 12:00am magnesium oxide 400 mg oral tablet (17 sources) Start: 03-28-2020 take 1 tablet by [...] Status: Ordered montelukast 10 mg oral tablet (14 sources) Leukotriene Receptor Antagonist Start: 03-28-2020 take [...] Ordered Normal saline (7 sources) Start: 07-05-2015 [place] Saline Nasal Gel Nasal, TID, Refill(s) 0, Dry nasal passages Start Date: 07/05/15 Status: Ordered [place] Saline Nasal Gel Nasally Active Nutritional Supplements (boost) (4 sources) Nutritional Supp lements (boost) Take by mouth. [...] bid, Prophylaxis Start Date: 07/05/15 Status: Ordered [id number] oral powder for reconstitution (1 source) Start: 12-17-19 [id number] oral powder for reconstitution Start Date: 12/16/22 Status: Ordered polyethylene glycol 3350 29601 mg powder for oral solution (8 sources) Osmotic Laxative Start: 07-05-19 polyethylene glycol 3350 17 gram packet 17 gram, Oral, Daily, Refills(s) 0, Constipation Start Date: 07/05/15 Status: Ordered polyethylene gly col (MIRALAX) packet Dissolve 17 g in 8 ounces of liquid and drink daily. Active rifAXIMin 550 mg oral tablet (5 sources) Rifamycin Antibacterial Start: 12-16-2022 take 1 [...] 0 Start Date: 10/22/21 Status: Ordered sennosides, snf 8.6 mg oral tablet (7 sources) Start: 03-28-2020 take 2 tablets by [...] sources) Start: 06-28-2023 Sodium Chlorid e-Aloe Vera ([place] Saline) gel Active 1 APPLIC TOPICAL Daily at bedtime as needed June 28, 2023 12:00am Start: 06-28-2023 Sodium Chlorid e-Aloe Vera ([place] Saline) gel Active 1 APPLIC TOPICAL Daily at bedtime June 28, 2023 12:00am tamsulosin hydrochloride 0.4 mg oral capsule (14 sources) alpha-Adrenergic Rachelle Start: 07-04-2015 take 1 capsule by mouth once daily Tamsulosin 0.4 mg capsule Active 0.4 MG PO Daily March 28, 2020 1:00am Vitamin D3 5000 intl units oral capsule (1 source) Start: 12-16-2022 Vitamin D3 5000 intl units oral capsule Start Date: 12/16/22 Status: Ordered Completed/Discontinued Medications Medication Drug Class(es) Dates Sig (Normalized) Sig (Original) acetaminophen 325 mg oral tablet (11 sources) Start: 06-12-2024 End: 06-12-2024 650 mg, Oral, PACU ONCE PRN, Starting on Wed06/12/24 at 0652, Until Wed06/12/24 at 1045, Mild Pain (pain score 1,2,3), PACU Now Start: 12-16-2022 acetaminophen Refills(s) 0 Start Date: 12/16/22 Status: Ordered Start: 03-28-2020 Acetaminophen 650 mg Suppository Active 650 MG NH EVERY 4-6 HOURS as needed for Elevated Temp March 28, 2020 1:00am Start: 03-28-2020 Acetaminophen Active 650 MG NH EVERY 4-6 HOURS March 28, 2020 1:00am [...] hrs Active acetylcysteine 100 mg/ml inhalation solution (3 sources) [...] 28, 2020 1:00am July 06, 2023 10:22am albuterol 0.83 mg/ml inhalation solution (18 sources) beta2-Adrenergic Agonist Start: 06-12-2024 End: 06-12-2024 2.5 mg, Nebulization, PACU ONCE PRN, Starting on Wed06/12/24 at 0652, Until Wed06/12/24 at 1045, Wheezing, PACU Now Start: 06-28-2023 take 2.5 mg by inhal ation four times daily as needed for chronic [...] 4 hours as needed for Wheezing. Active alendronic acid 70 mg oral tablet [...] the day with plain water Orally Active 2 ml amisulpride 2.5 mg/ml injection (1 source) Start: 06-12-2024 End: 06-12-2024 take 10 mg intravenously once as needed for nausea 10 mg, Intravenous Push, PACU ONCE PRN, Starting on 06/12/24 at 0652, Until Wed06/12/24 at 1045, post operative nausea or vomiting, PACU Now clindamycin 300 mg oral capsule (7 sources) [...] 28, 2020 1:00am June 28, 2023 1:09pm 1 ml naloxone hydrochloride 0.4 mg/ml injection (1 source) Opioid Antagonist Start: 06-12-2024 End: 06-12-2024 0.4 mg, Intravenous Push, PRN, Starting on 06/12/24 at 0652, Until Wed06/12/24 at 1045, Respiratory Rate Less Than 8 for adults and less than 12 for Peds or for suspected overdose, PACU Now omeprazole 40 mg delayed release oral capsule (20 sources) Proton Pump Inhibitor Start: 02-23-2020 End: 06-02-2024 omeprazole (PRILOSEC) 40 MG capsule 02/23/2020 06/02/2024 Discontinued (Duplicate (*won't e-cancel)) oxyCODONE hydrochloride 5 mg oral tablet (1 source) Opioid Agonist Start: 06-12-2024 End: 06-12-2024 5 mg, Oral, PRN, 1 dose, Starting on Wed06/12/24 at 0652, Until Wed06/12/24 at 1045, Moderate Pain (pain score 4,5,6), PACU Now Polyethylene Glycol 3350 (Clearlax) 17 gram/dose Powder [...] 28, 2020 1:00am July 06, 2023 10:26am 20 ml sodium chloride 9 mg/ml injection (1 source) Start: 06-12-2024 End: 06-12-2024 3 mL, Intravenous Push, PRN, Starting on Wed06/12/24 at 0652, Until Wed06/12/24 at 1045, For medication administration and blood draw, PACU Now Sodium Chloride-Aloe Vera (Saline Nasal (Aloe Vera)) [...] Chronic Chronic obstructive pulmonary disease and bronchiectasis (16 [...] [Seizure disorder] Onset: 04-22-2022 Chronic Esophageal disorders (4 sources) Gastro-esophageal reflux disease [...] Chronic Other aftercare (5 sources) Other terminal block assembler (current) drug therapy; Translations: [OTH SHELLFISH WEIGHER CURRENT DRUG THERAPY] Onset: 06-03-2022 Episodic Other and ill-defined heart disease (1 source) Cardiomegaly; Translations: [Cardiomegaly] 06-05-2024 Chronic Other and ill-defined heart disease (1 source) Cardiomegaly; Translations: [Cardiomegaly] Onset: 06-02-2024 Chronic Other congenital anomalies (1 source) Tristen [...] Onset: 01-27-2022 Episodic Other lower respiratory disease (3 sources) Wheezing; Translations: [Wheezing] 03-31-2023 Episodic Comment on above: Problem List clean-u p per request of Phys. EHR Cmte Other nutritional; endocrine; and metabolic disorders (5 sources) Disorder of urea cycle metabolism, unspecified; 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] Onset: 10-31-2021 Chronic Other upper respiratory disease (3 sources) Seasonal [...] Translations: [RESTLESSNESS AND AGITATION] Onset: 08-05-2022 Chronic Residual codes; unclassified (1 source) Edema; Translations: [Edema, unspecified] 06-02-2024 Episodic Respiratory failure; insufficiency; arrest (adult) (1 source) Acute respiratory failure with hypoxia; Translations: [ACUTE RESPIRATORY FAIL W/HYPOXIA] Onset: 08-05-2022 Episodic Septicemia (except in labor) (5 sources) Sepsis, unspecified organism; Translations: [Other specified sepsis] Onset: 07-29-2022 Episodic Thyroid disorders (11 sources) Hypothyroidism; Translations: [Hypothyroidism, unspecified] Onset: 08-05-2022 [...] Classification Problem Date Documented Da te Episodic/Chronic Cardiac dysrhythmias (2 sources) Tachycardia; Translations: [Tachycardia, unspecified] Onset: 06-02-2024 06-05-2024 Episodic Complications of surgical procedures or medical care (4 sources) Other complications of procedures, not elsewhere classified, initial encounter; Translations: [OTH COMPLICATIONS PROC NEC INITIAL] Onset: 09-29-2021 Episodic Disorders of teeth and jaw (11 sources) Dental caries; Translations: [Dental caries, unspecified] Onset: 03-28-2024 Resolved: 06-12-2024 03-28-2024 Episodic Epilepsy; convulsions (16 sources) Seizure disorder; Translations: [...] Abnormal finding of blood chemistry, unspecified; Translations: [Electrocardiogram abnormal] Onset: 04-26-2022 06-05-2024 Episodic Other upper respiratory infections (1 source) Acute upper respiratory infection, unspecified; Translations: [ACUTE UP RESPIRATORY INFECTION UNS] Onset: 01-27-2022 Episodic Residual codes; unclassified (1 source) Insomnia, unspecified; Translations: [INSOMNIA UNSPECIFIED] Onset: 01-27-2022 Episodic Residual codes; unclassified (1 source) Edema, unspecified; Translations: [Edema, unspecified] Onset: 06-02-2024 Episodic Unclassified (1 source) COUGH, UNSPECIFIED; Translations: [COUGH, UNSPECIFIED] Onset: 08-04-2022 Unclassified (2 sources) Preprocedural examination done 06-02-2024 Results Test Name Value Interpretation Reference Range Facility Anesthesia Postprocedure Lucia wolff 06-12-2024 Key Punch Operator Authentication Interface Message Text Anesthesia Postoperative [...] EVENTS: No notable events documented. Normal [facility] Anesthesia Preprocedure Eval santaon 06-12-2024 Key Punch Operator Authentication Interface Message Text ASA: 3 [...] were discussed with the patient and/or legal aircraft sales representative. The risks, benefits and alternatives were reviewed. Questions regarding anesthesia were answered. Patient and/or legal aircraft sales representative knows such anesthetics and procedures may be performed by Resident physicians, Certified Anesthesiologist Assistants, or Certified Nurse Anesthetists under the supervision of a physician. The patient /or the patient's legal aircraft sales representative agree with the plan for anesthesia. Comment: Consent obtained from patient's mother over the phone. Also explained what to expect from anesthesia to patient's caregiver from [facility] [employer] Social History Socioeconomic History Marital status: Single Social History Narrative Resident at [facility] [employer] [facility]. Mom is guardian CBC 06/02/2024 3:03 PM [...] Vitamin D3 125 mcg, DAILY Normal [facility] Anesthesia [facility] n 06-12-2024 Key Punch Operator Authentication Interface Message Text Patient taken [...] 1 extraction; Surgeon: Ap Scott DDS; Location: [facility] Surgery [place]; Service: Dental Allergies: Promethazine, Amoxicillin-pot clavulanate, Pertussis [...] 06/12/24 0736 Infusion Status Port #1 Infusing 06/12/24 0736 [...] Discharge: Removed 06/12/24 0825 Location (cm) 25 06/12/24 0746 Measured from: Naris 06/12/[id number] Secured via: Taped [...] the report was received. ILIANA Clements [facility] Blood Attestationon 06-12-19 Key Punch Operator Authentication Interface Message Text Blood Attestation: REFUSAL OF BLOOD OR BLOOD COMPONENTS: The patient and/or legal aircraft sales representative has been explained the need for transfusion of blood and/or blood components. The risks, benefits and alternatives have been explained. Questions concerning the transfusion of blood or blood components have been asked and answered. The patient and/or legal aircraft sales representative have REFUSED TO CONSENT transfusion of blood or blood products. PER PATIENT'S MOTHER Normal [facility] Brief Operative Noteon 06-12 Key Punch Operator Authentication Interface Message Text Brief Operative Note PHE OR 3 Parish Lopez 44 year old male Surgical Contact Serial Number: [id number] Preoperative Diagnosis: Pre-op Diagnosis * Caries [K02.9] Mental disability COPD Hyperthyroidism Seizures HLD GERD Postoperative Diagnosis: Mental disability COPD Hyperthyroidism Seizures HLD GERD Procedures: Full mouth x-rays [69947] Comprehensive Exam [[id number]] Dental prophylaxis [06986] Surgeon(s): Surgeon(s): Ap Scott DDS Staff: Medical Record Technician Nurse: Felisha Moore Anesthesia: General Anesthesiologist: Blake [...] Thompson DDS 06/12/2024 7:03 AM Normal [facility] OP Noteon 06-12-2024 Key Punch Operator Authentication Interface Message Text Operative Note PHE OR Karely Lopez 44 year old male Surgical Contact Serial Number: [id number] Preoperative Diagnosis: Pre-op Diagnosis * Caries [K02.9] Mental disability COPD Hyperthyroidism Seizures HLD GERD Postoperative Diagnosis: Mental Disability COPD Hyperthyroidism Seizures HLD GERD Procedures: Full mouth x-rays [98014] Comprehensive Exam [52328] Dental prophylaxis [65366] Surgeon: Ap Scott DDS Emt B Surgeon: Hansel Burgess DDS; Beatris Thompson, JESSICA Anesthesia: General- Nasal ETT Estimated Blood Loss: [...] Dictated by: Beatris Thompson DDS: Dr. Ap Al-Mashni, DDS was present for the critical portions of the procedure. Beatris Thompson DDS 06/12/2024 7:07 AM Normal [facility] Progress Noteson 06-12-2024 Key Punch Operator Authentication Interface Message Text ----- Wednesday, June 12, 2024 at 8:41:56 AM ----- ----- Provider: Julia - Ap Adams DDS -- Clinic: [facility] ----- [facility], pt is ready for tx. [place], only scaling was done. __ Operative Note PHE OR 3 Parish Lopez 44 year old male Surgical Contact Serial Number: [id number] Preoperative Diagnosis: Pre-op Diagnosis * Caries [K02.9] Mental disability COPD Hyperthyroidism Seizures HLD GERD Postoperative Diagnosis: Mental Disability COPD Hyperthyroidism Seizures HLD GERD Procedures: Full mouth x-rays [76618] Comprehensive Exam [83272] Dental prophylaxis [06170] Surgeon: Ap Scott DDS Emt B Surgeon: Hansel Burgess DDS; Beatris Thompson DMD [...] 2024 at 8:46:14 AM ----- ----- Provider: [id number] - Ap Adams DDS -- Clinic: [facility] ----- Normal [facility] EKG 12 LEAD - PERFORMon 05-20 Diagnosis Sinus tachycardia Possible Left atrial enlargement Nonspecific T wave abnormality Abnormal ECG Confirmed by JOSSELIN NIETO ([id number]) on 06/05/2024 9:00:17 PM [facility] P wave Atrium by EKG 122 BPM [facility] P wave axis 21 degrees [facility] P-R Interval 156 ms [facility] Q-T interval 302 ms [facility] Q-T interval corrected 430 ms [facility] QRS axis 0 degrees [facility] QRS duration 78 ms [facility] T wave axis -4 degrees [facility] Telephone Encounteron 2024 Key Punch Operator Authentication Interface Message Text Informed Consent for dental surgery AND Anesthesia consent obtained and scanned into [employer]. Scheduled for surgery 06/12/2024. Normal [facility] Addendum Noteon 06-02-2024 Key Punch Operator Authentication Interface Message Text Addended by: BOYD HARRY on: 06/02/2024 05:54 PM Modules accepted: Orders Normal [facility] BASIC METABOLIC PANELon 05-20 Anion gap [Moles/Vol] 18 mmol/L Normal 10-20 [facility] Comment on above: Performed By: #### C H8 ####[facility] [id number] [place], [place], Calcium [Mass/Vol] 10.5 mg/dL High 8.6-10.3 The [facility] Comment on above: Performed By: #### C H8 ####[facility] [id number] [place], [place], Chloride [Moles/Vol] 109 mmol/L High 98-[address] [facility] Comment on above: Performed By: #### C H8 ####S PATHOLOGY [id number] [place], [place], CO2 [Moles/Vol] 22 mmol/L Normal 21-31 The [facility] Comment on above: Performed By: #### C H8 ####[facility] [id number] [place], [place], Creatinine [Mass/Vol] 0.61 mg/dL Low 0.70-1.[address] [facility] Comment on above: Performed By: #### C H8 ####S PATHOLOGY [id number] [place], [place], ESTIMATED GFR (CKD-EPI) 121 mL/min/1.73sqm Normal >=60 The [facility] Comment on above: Result Comment: [...] Inclusion of Race in Diagnosing Kidney Disease. [place] Journal of Kidney Diseases 2021;79(2):268-88.e1. 2. N Engl J Med 2020 Vol. 385 Issue 19 Pages [id number] Performed By: #### C H8 ####[facility] [id number] [place], [place], Glucose [Mass/Vol] 126 mg/dL High 74-109 The [facility] Comment on above: Performed By: #### C H8 ####[facility] [id number] [place], [place], Potassium [Moles/Vol] 4.8 mmol/L Normal 3.5-5.[address] [facility] Comment on above: Performed By: #### C H8 ####[facility] [id number] [place], [place], Sodium [Moles/Vol] 144 mmol/L Normal 136-145 [facility] Comment on above: Performed By: #### C H8 ####[facility] [id number] [place], [place], Urea nitrogen [Mass/Vol] 14 mg/dL Normal 7-25 The [facility] Comment on above: Performed By: #### C H8 ####[facility] [id number] [place], [place], Basic metabolic 2000 panelon 06-02-2024 Anion [...] CKD-EPI (S/P/Bld) [Vol rate/Area] 121 - PINF [facility] Comment on above: 2020 CKD EPI Equatio [...] Inclusion of Race in Diagnosing Kidney Disease. [place] Journal of Kidney Diseases 202;79(2):268-88.e1. 2. N Engl J Med 2020 Vol. 385 Issue 19 Pages 7728-2255 Glucose [Mass/Vol] 126 mg/dL High 74 - 109 mg/dL [facility] Interpretation and review of laboratory results Abnormal [facility] Potassium [Moles/Vol] 4.8 mmol/L 3.5 - 5.0 mmol/L [facility] Sodium [Moles/Vol] 144 mmol/L 136 - 145 mmol/L [facility] Urea nitrogen [Mass/Vol] 14 mg/dL 7 - 25 mg/dL [facility] CBC panel Auto (Bld)on 06-02 Erythrocyte distribution width (RBC) [Ratio] 14.5 % 11.5 - 14.5 % [facility] Hematocrit (Bld) [Volume fraction] 42.5 % 41.0 - 53.0 % [facility] Hemoglobin (Bld) [Mass/Vol] 13.8 g/dL Low 13.9 - 16.3 g/dL [facility] Interpretation and review of laboratory results Abnormal [facility] MCH (RBC) [Entitic mass] 30.7 pg 26.0 - 34.0 pg [facility] MCHC (RBC) [Mass/Vol] 32.4 g/dL 32.0 - 35.9 g/dL [facility] MCV (RBC) [Entitic vol] 95 fL 80 - 100 fL [facility] Platelet mean volume (Bld) [Entitic vol] 9.3 fL 7.5 - 11.2 fL [facility] Platelets (Bld) [#/Vol] 419 10*3/uL High 150 - 400 K/uL [facility] RBC (Bld) [#/Vol] 4.49 10*6/uL Low [facility] WBC (Bld) [#/Vol] 7 10*3/uL 4.5 - 11.5 K/uL [facility] COMPLETE BLOOD COUNTon 06-02 Erythrocyte distribution width (RBC) [Ratio] 14.5 % Normal 11.5-14.5 The [facility] Comment on above: Performed By: #### C BC #### [facility] [address] [place] [address], Hematocrit (Bld) [Volume fraction] 42.5 % Normal 41.0-53.0 The [facility] Comment on above: Performed By: #### C BC #### S PATHOLOGY LABORATORY [address] [place] [address], Hemoglobin (Bld) [Mass/Vol] 13.8 g/dL Low 13.9-16.3 The [facility] Comment on above: Performed By: #### C BC #### S PATHOLOGY LABORATORY [address] [place] [address], MCH (RBC) [Entitic mass] 30.7 pg Normal 26.0-34.0 The [facility] Comment on above: Performed By: #### C BC #### [facility] [address] [place], [place], MCHC (RBC) [Mass/Vol] 32.4 g/dL Normal 32.0-35.9 The [facility] Comment on above: Performed By: #### C BC #### [facility] [address] [place], [place], MCV (RBC) [Entitic vol] 95 fL Normal 80-100 The [facility] Comment on above: Performed By: #### C BC #### S PATHOLOGY LABORATORY [address] [place], [place], Platelet mean volume (Bld) [Entitic vol] 9.3 fL Normal 7.5-11.2 The [facility] Comment on above: Performed By: #### C BC #### [facility] [address] [place], [place], Platelets (Bld) [#/Vol] 419 10*3/uL High 150-400 The [facility] Comment on above: Performed By: #### C BC #### S PATHOLOGY LABORATORY [address] [place], [place], RBC (Bld) [#/Vol] 4.49 10*6/uL Low 4.50-5.90 The [facility] Comment on above: Performed By: #### C BC #### S PATHOLOGY LABORATORY [address] [place], [place], WBC (Bld) [#/Vol] 7.0 10*3/uL Normal 4.5-11.5 The [facility] [facility] Comment on above: Performed By: #### C BC #### [facility] LABORAT[facility] [address] [place], [place], Patient Instructionson 06-02 Key Punch Operator Authentication Interface Message Text RECOMMENDATIONS: Patient [...] before surgery Boyd Harry MD Normal [facility] Progress Noteson 06-02-2024 Key Punch Operator Authentication Interface Message Text Blood pressure [...] 1 extraction; Surgeon: Ap Scott DDS; Location: [facility]; Service: Dental Pertinent Social History Reviewed [...] fever, chills, night sweats, and weight loss BILLET 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 Normal [facility] THYROXINE (T4), FREEon 06-02 Free T4 [Mass/Vol] 0.7 ng/dL 0.61 - 1. 12 ng/dL [facility] Interpretation and review of laboratory results Normal [facility] T4 F 0.70 ng/dL Normal 0.61-1.12 [facility] Comment on above: Performed By: #### T SH HS, T4 F #### [facility] [address] [place], [place], TSHon 06-02-2024 Interpretation and review of laboratory results Abnormal [facility] TSH Qn 0.229 m[IU]/L Low [facility] TSH 0.229 uIU/mL Low 0.450-5.330 [facility] Comment on above: Performed By: #### T SH HS, T4 F #### [facility] [address] [place], [place], XR Chest PA and Lateralon Greta [...] images and agree with the resident's interpretation. [facility] Radiology Study observation (narrative) [facility] XR Chest PA and LateralOrder ed By: Greta Heck on 06-02-2024 [facility] Work Phone: No Panel Informationon 05-31 [employer] Progress Noteson 04-25-2024 Key Punch Operator Authentication Interface Message Text Parent/guardian/patie nt was contacted for PSE AND OR scheduled -- confirmed information with mom, also informed mom importance of receiving PSE call -- if not received surgery will be canceled. 06/12/2024 ----- Wednesday, April 25, 2024 at 2:35:00 PM ----- ----- Provider: [facility] -- Clinic: [place] ----- Normal [facility] No Panel Informationon 03-13 As in note [employer] Ambulatory Visit Summaryon 0 12-16-2022 Ambulatory Visit Summary LOPEZPARISH NERI :1980 Visit Date:12/16/2022 Ambulatory Visit Instructions Your [...] (oxcarbazepine 600 mg Tab) polyethylene glycol 3350 ([id number] oral powder for reconstitution) polyethylene glycol 3350 (polyethylene glycol 3350 17 gram packet) rifaximin (Xifaxan 550 mg oral tablet) senna (Senna 8.6 mg oral tablet) sodium chloride nasal ([place] Saline Nasal Gel) tamsulosin Discharge Vitals Temperature [...] Application T (more content not included)... Normal [facility] Patient Educationon 12-17-19 Patient Education Obstetrics [...] provider. Document Revised: 08/14/2021 Document Reviewed: 08/14/2021 [employer] Patient Education ? 2022 [facility] Normal [facility] Physician Orderon 12-16-2022 Physician Order [id number] .[id number]:127 Normal [facility] RAD - Ultrasound Reporton RAD - Ultrasound Report [id number] .[id number]:127 Normal [facility] Urology Office/Clinic Noteon 12-16-2022 Urology Office/Clinic [...] retractile testes. Pt currently resides in [facility]. CBC/CMP 08/01/22 1. Retractile testis (Q55.22: [...] Eye-Both, QID atorvastatin, 10 mg, Oral, Daily [place] Saline Nasal Gel, Nasal, TID azelastine nasal 137 mcg/inh spray, 2 spray(s), Nasal, As (more content not included)... Normal [facility] Comment on above: Result Comment: Elec [...] GUANAKITO MEADE Date: 2022-08-04 18:50 Normal [facility] AMMONIAon 08-02-2022 Ammonia (P) [Moles/Vol] 87 umol/L Critically high [facility] Comment on above: Performed By: #### B MP #### [facility] [address] [place] [address] Dr. Deepak Greenfield AMMONIAon 08-01-2022 Ammonia (P) [Moles/Vol] 42 umol/L Critically high [facility] Comment on above: Performed By: #### M G, CMP #### [facility] [address] [place] [address] Dr. Deepak Greenfield CBC W MANUAL DIFFon 08-02-19 23 ATYPICAL LYMPH # 0.41 103/ul Normal [facility] Comment on above: Performed By: #### M G, CMP #### [facility] [address] [place] [address] Dr. Deepak Greenfield ATYPICAL LYMPH % 7 % Normal [facility] Comment on above: Performed By: #### M G, CMP #### [facility] [address] [place] [address] Dr. Deepak Greenfield BAND # 0.0 103/ul Normal 0.0-0.3 [facility] Comment on above: Performed By: #### M G, CMP #### [facility] [address] [place] [address] Dr. Deepak Greenfield BAND % 0 % Normal 0-5 [facility] Comment on above: Performed By: #### M G, CMP #### [facility] [address] [place] [address] Dr. Deepak Greenfield BASOM # 0.00 103/ul Normal 0.00-0.10 [facility] Comment on above: Performed By: #### M G, CMP #### [facility] [address] [place] [address] Dr. Deepak Greenfield BASOM % 0.0 % Critically low 0.2-2.0 [facility] Comment on above: Performed By: #### M G, CMP #### [facility] [address] [place], [place] [id number] Dr. Deepak Greenfield BLAST # Normal [facility] Comment on above: Performed By: #### M G, CMP #### [facility] [address] [place] [address] Dr. Deepak Greenfield BLAST % Normal [facility] Comment on above: Performed By: #### M G, CMP #### [facility] [address] [place] [address] Dr. Deepak Greenfield CORRECTED WBC Normal 4.0-11.0 [facility] Comment on above: Performed By: #### M G, CMP #### [facility] [address] [place] [address] Dr. Deepak Greenfield EOS # 0.06 103/ul Normal 0.00-0.70 [facility] Comment on above: Performed By: #### M G, CMP #### [facility] [address] [place] [address] Dr. Depeak Greenfield EOS% 1.0 % Normal 0.9-7.0 [facility] Comment on above: Performed By: #### M G, CMP #### [facility] [address] [place] [address] Dr. Deepak Greenfield HCT 37.6 % Critically low 42.0-54.0 [facility] Comment on above: Performed By: #### M G, CMP #### [facility] [address] [place] [address] Dr. Deepak Greenfield HGB 12.3 g/dl Critically low 14.0-18.0 [facility] Comment on above: Performed By: #### M G, CMP #### [facility] [address] [place] [address] Dr. Deepak Greenfield LYMPHM # 1.91 103/ul Normal 1.20-3.80 [facility] Comment on above: Performed By: #### M G, CMP #### [facility] [address] [place] [address] Dr. Deepak Greenfield LYMPHM% 33.0 % Normal 20.5-60.0 [facility] Comment on above: Performed By: #### M G, CMP #### [facility] [address] [place] [address] [address] Deepak Greenfield MCH 31.7 pg Normal 25.9-34.0 [facility] Comment on above: Performed By: #### M G, CMP #### [facility] [address] [address] [address] Deepak Greenfield MCHC 32.7 g/dl Normal 29.9-35.2 [facility] Comment on above: Performed By: #### M G, CMP #### [facility] [address] [place] [address] Dr. Deepak Greenfield MCV 96.9 fL Critically high 80.0-94.0 [facility] Comment on above: Performed By: #### M G, CMP #### [facility] [address] [place] [address] Dr. Deepak Greenfield METAMYELOCYTE # Normal [facility] Comment on above: Performed By: #### M G, CMP #### [facility] [address] [place] [address] Dr. Deepak Greenfield METAMYELOCYTE % Normal [facility] Comment on above: Performed By: #### M G, CMP #### [facility] [address] [place] [address] Dr. Deepak Greenfield MONOM# 0.29 103/ul Critically low 0.30-0.80 [facility] Comment on above: Performed By: #### M G, CMP #### [facility] [address] [place] [address] Dr. Deepak Greenfield MONOM% 5.0 % Normal 1.7-12.0 [facility] Comment on above: Performed By: #### M G, CMP #### [facility] [address] [place] [address] Dr. Deepak Greenfield MPV 11.0 fL Normal 9.5-13.5 [facility] Comment on above: Performed By: #### M G, CMP #### [facility] [address] [place] [address] Dr. Deepak Greenfield MYELOCYTE # Normal [facility] Comment on above: Performed By: #### M G, CMP #### [facility] [address] [address] [address] Deepak Greenfield MYELOCYTE % Normal [facility] Comment on above: Performed By: #### M G, CMP #### [facility] [address] [address] [address] Deepak Greenfield NRBC Normal [facility] Comment on above: Performed By: #### M G, CMP #### [facility] [address] [address] [address] Deepak Greenfield PLT 208 103/ul Normal 150-450 [facility] Comment on above: Performed By: #### M G, CMP #### [facility] [address] [address] [address] Deepak Greenfield RBC 3.88 106/ul Critically low 4.70-6.10 [facility] Comment on above: Performed By: #### M G, CMP #### [facility] [address] [place] [address] Dr. Deepak Greenfield RDW 12.9 % Normal 11.0-15.0 [facility] Comment on above: Performed By: #### M G, CMP #### [facility] [address] [address] [address] Deepak Greenfield SEG # 3.13 103/ul Normal 1.40-6.50 [facility] Comment on above: Performed By: #### M G, CMP #### [facility] [address] [place] [address] Dr. Deepak Greenfield SEG % 54.0 % Normal 43.0-75.0 [facility] Comment on above: Performed By: #### M G, CMP #### [facility] [address] [place] [address] Dr. Deepak Greenfield STOMATOCYTES 3+ Normal [facility] Comment on above: Performed By: #### M G, CMP #### [facility] [address] [place] [address] Dr. Deepak Greenfield WBC 5.8 103/ul Normal 4.0-11.0 [facility] Comment on above: Performed By: #### M G, CMP #### [facility] [address] [address] [address] Deepak Greenfield PROF CHEM 8 (BAS METB)on Anion gap [Moles/Vol] 16.1 mmol/L Normal [facility] Comment on above: Performed By: #### B MP #### [facility] [address] [place] [address] Dr. Deepak Greenfield Calcium [Mass/Vol] 9.3 mg/dL Normal 8.5-10.1 [facility] Comment on above: Performed By: #### B MP #### [facility] [address] [place] [address] Dr. Deepak Greenfield Chloride [Moles/Vol] 105 mmol/L Normal 98-107 [facility] Comment on above: Performed By: #### B MP #### [facility] [address] [place] [address] Dr. Deepak Greenfield CO2 [Moles/Vol] 27.6 mmol/L Normal 21.0-32.0 [facility] Comment on above: Performed By: #### B MP #### [facility] [address] [place] [address] Dr. Deepak Greenfield Creatinine [Mass/Vol] 0.96 mg/dL Normal 0.70-1.30 [facility] Comment on above: Performed By: #### B MP #### [facility] [address] [place] [address] Dr. Deepak Greenfield EGFR-AF [place]ER >60 Normal >=60 [facility] Comment on above: Performed By: #### B MP #### [facility] [address] [address] [address] Deepak Greenfield EGFR-NON AF [place]ER >60 Normal >=60 [facility] Comment on above: Performed By: #### B MP #### [facility] [address] [place] [address] Dr. Deepak Greenfield Glucose [Mass/Vol] 160 mg/dL Critically high 74-[address] [facility] Comment on above: Performed By: #### B MP #### [facility] [address] [address] [address] Deepak Greenfield Potassium [Moles/Vol] 3.7 mmol/L Normal 3.5-5.1 [facility] Comment on above: Performed By: #### B MP #### [facility] [address] [address] [address] Deepak Greenfield Sodium [Moles/Vol] 145 mmol/L Normal 136-145 [facility] Comment on above: Performed By: #### B MP #### [facility] [address] [address] [address] Deepak Greenfield Urea nitrogen [Mass/Vol] 5.0 mg/dL Critically low 7.0-18.0 [facility] Comment on above: Performed By: #### B MP #### [facility] [address] [place] [address] Dr. Deepak Greenfield Urea nitrogen/Creatinine [Mass ratio] 5.2 mg/mg Normal [facility] Comment on above: Performed By: #### B MP #### [facility] [address] [address] [address] Deepak Greenfield AMMONIAon 07-31-2022 Ammonia (P) [Moles/Vol] 94 umol/L Critically high 11-32 [facility] Comment on above: Performed By: #### M G, CMP #### [facility] [address] [address] [address] Deepak Greenfield CBC AUTO DIFFon 07-31-2022 BASO # 0.0 103/ul Normal 0.0-0.1 [facility] Comment on above: Performed By: #### B MP #### [facility] [address] [place] [address] Dr. Deepak Greenfield Basophils/100 WBC (Bld) 0.1 % Critically low 0.2-2.0 [facility] Comment on above: Performed By: #### B MP #### [facility] [address] [place] [address] Dr. Deepak Greenfield EO # 0.0 103/ul Normal 0.0-0.7 [facility] Comment on above: Performed By: #### B MP #### [facility] [address] [place] [address] Dr. Deepak Greenfield Eosinophils/100 WBC (Bld) 0.0 % Critically low 0.9-7.0 [facility] Comment on above: Performed By: #### B MP #### [facility] [address] [place] [address] Dr. Deepak Greenfield Erythrocyte distribution width (RBC) [Ratio] 13.1 % Normal 11.0-15.0 [facility] Comment on above: Performed By: #### B MP #### [facility] [address] [place] [address] Dr. Deepak Greenfield Hematocrit (Bld) [Volume fraction] 32.4 % Critically low 42.0-54.0 [facility] Comment on above: Performed By: #### B MP #### [facility] [address] [place] [address] Dr. Deepak Greenfield Hemoglobin (Bld) [Mass/Vol] 10.9 g/dL Critically low 14.0-18.0 [facility] Comment on above: Performed By: #### B MP #### [facility] [address] [place] [address] Dr. Deepak Greenfield IG # 0.02 10e3/ul Normal 0.00-0.03 [facility] Comment on above: Performed By: #### B MP #### [facility] [address] [place] [address] Dr. Deepak Greenfield IG % 0.3 % Normal 0.0-0.5 [facility] Comment on above: Performed By: #### B MP #### [facility] [address] [place] [address] Dr. Deepak Greenfield LYMPH # 2.7 103/ul Normal 1.2-3.8 [facility] Comment on above: Performed By: #### B MP #### [facility] [address] [place] [address] Dr. Deepak Greenfield Lymphocytes/100 WBC (Bld) 38.9 % Normal 20.5-60.0 [facility] Comment on above: Performed By: #### B MP #### [facility] [address] [place] [address] Dr. Deepak Greenfield MANUAL DIFF REQ NO Normal [facility] Comment on above: Performed By: #### B MP #### [facility] [address] [place] [address] Dr. Deepak Grenefield MCH (RBC) [Entitic mass] 32.3 pg Normal 25.9-34.0 [facility] Comment on above: Performed By: #### B MP #### [facility] [address] [place] [address] Dr. Deepak Greenfield MCHC (RBC) [Mass/Vol] 33.6 g/dL Normal 29.9-35.2 [facility] Comment on above: Performed By: #### B MP #### [facility] [address] [place] [address] Dr. Deepak Greenfield MCV (RBC) [Entitic vol] 96.1 fL Critically high 80.0-94.0 [facility] Comment on above: Performed By: #### B MP #### [facility] [address] [place] [address] Dr. Deepak Greenfield MONO # 0.3 103/ul Normal 0.3-0.8 [facility] Comment on above: Performed By: #### B MP #### [facility] [address] [place] [address] Dr. Deepak Greenfield Monocytes/100 WBC (Bld) 4.9 % Normal 1.7-12.0 [facility] Comment on above: Performed By: #### B MP #### [facility] [address] [place] [address] Dr. Deepak Greenfield NEUT # 3.9 103/ul Normal 1.4-6.5 [facility] Comment on above: Performed By: #### B MP #### [facility] [address] [place] [address] Dr. Deepak Greenfield Neutrophils/100 WBC (Bld) 55.8 % Normal 43.0-75.0 [facility] Comment on above: Performed By: #### B MP #### [facility] [address] [address] [address] Deepak Greenfield Platelet mean volume (Bld) [Entitic vol] 9.7 fL Normal 9.5-13.5 [facility] Comment on above: Performed By: #### B MP #### [facility] [address] [address] [address] Deepak Greenfield PLT 296 103/ul Normal 150-450 [facility] Comment on above: Performed By: #### B MP #### [facility] [address] [address] [address] Deepak Greenfield RBC 3.37 106/ul Critically low 4.70-6.10 [facility] Comment on above: Performed By: #### B MP #### [facility] [address] [place] [address] Dr. Deepak Greenfield WBC 7.0 103/ul Normal 4.0-11.0 [facility] Comment on above: Performed By: #### B MP #### [facility] [address] [address] [address] Deepak Greenfield PROF CHEM 8 (BAS METB)on Anion gap [Moles/Vol] 14.9 mmol/L Normal [facility] Comment on above: Performed By: #### C BC #### [facility] [address] [place] [address] Dr. Deepak Greenfield Calcium [Mass/Vol] 8.8 mg/dL Normal 8.5-10.1 [facility] Comment on above: Performed By: #### C BC #### [facility] [address] [place] [address] Dr. Deepak Greenfield Chloride [Moles/Vol] 105 mmol/L Normal 98-107 [facility] Comment on above: Performed By: #### C BC #### [facility] [address] [place] [address] Dr. Deepak Greenfield CO2 [Moles/Vol] 26.4 mmol/L Normal 21.0-32.0 [facility] Comment on above: Performed By: #### C BC #### [facility] [address] [address] [address] Deepak Greenfield Creatinine [Mass/Vol] 0.70 mg/dL Normal 0.70-1.30 [facility] Comment on above: Performed By: #### C BC #### [facility] [address] [address] [address] Deepak Greenfield EGFR-AF [place] >60 Normal >=60 [facility] Comment on above: Performed By: #### C BC #### [facility] [address] [address] [address] Deepak Greenfield EGFR-NON AF [place] >60 Normal >=60 [facility] Comment on above: Performed By: #### C BC #### [facility] [address] [place] [address] Dr. Deepak Greenfield Glucose [Mass/Vol] 129 mg/dL Critically high 74-106 [facility] Comment on above: Performed By: #### C BC #### [facility] [address] [place] [address] Dr. Deepak Greenfield Potassium [Moles/Vol] 4.3 mmol/L Normal 3.5-5.1 [facility] Comment on above: Performed By: #### C BC #### [facility] [address] [place] [address] Dr. Deepak Greenfield Sodium [Moles/Vol] 142 mmol/L Normal 136-145 [facility] Comment on above: Performed By: #### C BC #### [facility] [address] [place] [address] Dr. Deepak Greenfield Urea nitrogen [Mass/Vol] 6.0 mg/dL Critically low 7.0-18.0 [facility] Comment on above: Performed By: #### C BC #### [facility] [address] [place] [address] Dr. Deepak Greenfield Urea nitrogen/Creatinine [Mass ratio] 8.6 mg/mg Normal [facility] Comment on above: Performed By: #### C BC #### [facility] [address] [place] [address] Dr. Deepak Greenfield AMMONIAon 07-30-2022 Ammonia (P) [Moles/Vol] 64 umol/L Critically high 11-32 [facility] Comment on above: Performed By: #### C BC #### [facility] [address] [place] [address] Dr. Deepak Greenfield CBC AUTO DIFFon 07-30-2022 BASO # 0.0 103/ul Normal 0.0-0.1 [facility] Comment on above: Performed By: #### I NFLUAB #### [facility] [address] [place] [address] Dr. Deepak Greenfield Basophils/100 WBC (Bld) 0.0 % Critically low 0.2-2.0 [facility] Comment on above: Performed By: #### I NFLUAB #### [facility] [address] [place] [address] Dr. Deepak Greenfield EO # 0.0 103/ul Normal 0.0-0.7 [facility] Comment on above: Performed By: #### I NFLUAB #### [facility] [address] [place] [address] Dr. Deepak Greenfield Eosinophils/100 WBC (Bld) 0.0 % Critically low 0.9-7.0 [facility] Comment on above: Performed By: #### I NFLUAB #### [facility] [address] [place] [address] Dr. Deepak Greenfield Erythrocyte distribution width (RBC) [Ratio] 13.1 % Normal 11.0-15.0 [facility] Comment on above: Performed By: #### I NFLUAB #### [facility] [address] [place] [address] Dr. Deepak Greenfield Hematocrit (Bld) [Volume fraction] 31.4 % Critically low 42.0-54.0 [facility] Comment on above: Performed By: #### I NFLUAB #### [facility] [address] [place] [address] Dr. Deepak Greenfield Hemoglobin (Bld) [Mass/Vol] 10.5 g/dL Critically low 14.0-18.0 [facility] Comment on above: Performed By: #### I NFLUAB #### [facility] [address] [address] [address] Deepak Greenfield IG # 0.01 10e3/ul Normal 0.00-0.03 [facility] Comment on above: Performed By: #### I NFLUAB #### [facility] [address] [address] [address] Deepak Greenfield IG % 0.2 % Normal 0.0-0.5 [facility] Comment on above: Performed By: #### I NFLUAB #### [facility] [address] [address] [address] Deepak Greenfield LYMPH # 1.5 103/ul Normal 1.2-3.8 [facility] Comment on above: Performed By: #### I NFLUAB #### [facility] [address] [place] [address] Dr. Deepak Greenfield Lymphocytes/100 WBC (Bld) 27.5 % Normal 20.5-60.0 [facility] Comment on above: Performed By: #### I NFLUAB #### [facility] [address] [address] [address] eDepak Greenfield MANUAL DIFF REQ NO Normal [facility] Comment on above: Performed By: #### I NFLUAB #### [facility] [address] [address] [address] Deepak Greenfield MCH (RBC) [Entitic mass] 32.4 pg Normal 25.9-34.0 [facility] Comment on above: Performed By: #### I NFLUAB #### [facility] [address] [address] [address] Deepak Greenfield MCHC (RBC) [Mass/Vol] 33.4 g/dL Normal 29.9-35.2 [facility] Comment on above: Performed By: #### I NFLUAB #### [facility] [address] [address] [address] Deepak Greenfield MCV (RBC) [Entitic vol] 96.9 fL Critically high 80.0-94.0 [facility] Comment on above: Performed By: #### I NFLUAB #### [facility] [address] [address] [address] Deepak Greenfield MONO # 0.2 103/ul Critically low 0.3-0.8 [facility] Comment on above: Performed By: #### I NFLUAB #### [facility] [address] [address] [address] Deepak Greenfield Monocytes/100 WBC (Bld) 2.9 % Normal 1.7-12.0 [facility] Comment on above: Performed By: #### I NFLUAB #### [facility] [address] [place] [address] Dr. Deepak Greenfield NEUT # 3.8 103/ul Normal 1.4-6.5 [facility] Comment on above: Performed By: #### I NFLUAB #### [facility] [address] [place] [address] Dr. Deepak Greenfield Neutrophils/100 WBC (Bld) 69.4 % Normal 43.0-75.0 [facility] Comment on above: Performed By: #### I NFLUAB #### [facility] [address] [place] [address] Dr. Deepak Greenfield Platelet mean volume (Bld) [Entitic vol] 9.4 fL Critically low 9.5-13.5 [facility] Comment on above: Performed By: #### I NFLUAB #### [facility] [address] [place] [address] Dr. Deepak Greenfield PLT 256 103/ul Normal 150-450 [facility] Comment on above: Performed By: #### I NFLUAB #### [facility] [address] [place] [address] Dr. Deepak Greenfield RBC 3.24 106/ul Critically low 4.70-6.10 [facility] Comment on above: Performed By: #### I NFLUAB #### [facility] [address] [place] [address] Dr. Deepak Greenfield WBC 5.5 103/ul Normal 4.0-11.0 [facility] Comment on above: Performed By: #### I NFLUAB #### [facility] [address] [place] [address] Dr. Deepak Greenfield Coding Summary.on 07-30-2022 Coding Summary. CD:[id number] W w+PGhlYWQ+FW4SZXIgG97 stICwqP5cX3JYWHhGEltz EXJWUAlSHlKmetMmLO6bm XNjZXJu IC8+WL2tQRRqNmdaqZDgu 1K7hCP3I27fbb6mHSmcuJ M8XENjRvBcbjwrz7edhSt 6IDcuNmluOyBt WTLwwH48AWK1jN00Gt45p GRjbYKrq9hzoUa1WsYmKC HiUPZ6bWfjOHexk3PdJQE cJ23dhIQcf9J7 PZCreIbpgLWyIfAydZV5c B8cCYbmxjphe8zjsfqwIh q1om74nDJgo6F3nKO4C1H jqbN6PQEcwFZa VixkjGCOeA5zxfjoi1uwz bjxPdPdGTTqLGh5XZv3PM VnoAksSuMhXA97PTH8QKF iqgPbO9IrUOTe yGheOzU8e8D4Da6XB8ECN yobF1ARCFPPVVrpqFL+PC 69zp62B3KcHidxYfi9FQD kTSB5sKR9tP4p QGUlVHpez1Y0uHF3Q1Vfi aDvhx5gy5fiUTJiGFbkC5 1wdOIav6L5TLFbhOQ5TVI fdJruPsQprA48 Oyc+BSRopMexl4JnPtmxk 1voy8jybNu2XjntJBCzuv OikKwdATK6u0TfEf5pRGF itHQ4iRZ9uI1a WdKhRgR1LBicV042NlBdj LDmGahaH90oV1NohRE+PH CgPwd1BZEboYusRV6dF6I hZGRpbmctbGVm jKupQT5kEYVitcwaEQFso T6bVDWkP9r8YqEmCpR7JF ssG0ZtYGRnqwuuWi16mV7 qLhQdDlF6AZmf U1BhxdH6VSGnlQMrQZmuR BX1P54rk5Q0FXEiKHPpHS K2mZZ6fR1abKphvmzjuHE mdDsgdmVydGlj GUzzEDrkQ498GMSrqHquC kNvZGluZyBEYXRlOiAgMD QvMTMvMjAyMzwvdGQ+PHR bXPS7xCycEJMl tUEaPOrpWc5kzNmfyImiS N3xZHUboblpQPPkjJ1vFO AgsISouNewMZ8fSSFzjqn yv059NwQnYLY6 DDBktUCgC8WgnB5uAyKuW CIpTDKkE4WoyACwREcuO7 83TXvdEiR7FJTavqHlM5T sLWFsaWduOiB0 t6T4Bj9Zw1TjomrmS1Htj KAvXrYwDmjpIDh7E6YgQy wvdHI+MK68CMXjNV52RCt 6EQY0aCubEQna MAJpM4YnmN9dNdZhIQMsQ GRkOyc+PHRhYmxlIHdpZH RoPScxMDAlJyBzdHlsZT0 cDh6rLCSjFLLo fZctkPWhKxAfw3ybVZAzI ItzLE0csNozV8TmlBG3QL Rsc6p1Bx50P69fB5LpzCY +XRYtdRQ4xWN7 qE0iShVzAyN8UAqaX917E oPibMCkMwycg4rol6adqH b4PfM8RABsoeZxdQinSHN 0w3ZcAp26G64y IHdpZHRoPSIxNSUiIHZhb Ldfxt5ruL5aPy0+PGNvbC P7qSU8oD5yBvLaZeN8PMn jP696OmSjbOQg Gecta3wwl3loeJz6HtUbW ECqnfMvcTgqNJB2i1TiWg 97I8FcfZtyu1FsNkf6bu4 4gOQxg1T9tIE7 F8SkESLrjgybmHZgyFxvC H1tKXZfzncdNDLxwS6mIM NtL7l7GeLiSiI2WHueA9F bfyI4FHQxyUZp VCNkbVPKsE9fuzjad4cfr kcwJmIsBYPpQYk2UFw7WK LjuXnlQvUrKHO1XvB8SDK 6eQFvyK4ygEfu lwccwK3fJtz+DGX3oQCyu HBLCA8cGxvqrXD+PHRkIH M6oHvwHSeoLQJrrS1oDRL aP3o6RzBeFmE6 NJrlI7DlhtQ7AZSmcREaH BQxxENIrL4odcieb4apxm otVxJzWNKoEUb3IEl8QJR saWduOiBsZWZ0 YeY1TEZ4jVSjeB6apHbhs ottvO5oWdo+QmlydGggRG J0WCe8R2VnQuq7SDBapFe hWQ2hcASgPOra Oo0nwNvcsHynGP8yXHShi edah968LpIna5bxBUPqlO WiXRbdNKZ0T57zg6P1YZW vEHBuWRK7iWA2 nQ2wsNinfchddNMloEcdm fIlsGwqAGiyNYonL694AT YieKlxRaDlCMx3H6QzSnt 8IOSwpGfcDX6n kDLeEButKg9tuJahuApvG G6uYQNvypzeg283FtRtx5 nuICGdxPTxGMksMKT3B35 wm1U1EIMhLLSr UGJ8oVO1uW6stEpidqaan GVmdDsgdmVydGljYWwtYW kqS846RYEazLrdVnDelNt 8D9RnGik0QEEb cQszCF7thQLhDCwwZn8af DbbkVewDL6yLTYazviso3 10InQbc3ruQMXsxGUaASk lYHT8U79ns9G2 FKThPJMwJPH7iYD9vN0gq GlnbjogbGVmdDsgdmVydG yyKNodOXgnJ586XHUaoNi nPlBhdGllbnQg BOlgQAv3U5OpOdchkWH+P P89TDWpEM06dWCtcWFjr3 hqfKd1MeLzFVDyWJD9wVd rEPiux6CyHJGl F56qnBZjz4O5CRQfzJtxi VTmNnIzkIU3oC2cCJmfui dip1demjgsHdeue6cqyy3 6oY82N01oNQnf ZHRoPSIzMCUiIHZhbGlnb x2cnL7dVp8+VPKgsEX1wM S1mT4sRBKiVoN0NLqyR17 9InRvcCIvPjxj f3wlg3bfcEd3KgX0SYKyc yFwfGzfLAF2o7SvIl95N5 9sIHdpZHRoPSIyMCUiIHZ rhOoaak7ljZ3t Ii8+LVBmzKL0nEW9lY3uF tMpYvB4FTzwI065PqTazP UiXdjdA84cJ6ZwxYO+PHR jIms2GKLiwGjp GL1eqFJpRBzkWh1sTUJ9N yRhNsBfWOflC7BvQIMmfp pvthqteQS1GZJtEFWfaX8 5Pr1edJnqMTHr eFICcD6bregya2bfrkbbF sOcHTIgJIi9FWs4PIExmR voTfWzGCE5UnZ5JME1bJL kiJ6odAqhnxjn aO0bV2ObNGLuzyzuUe75a I9nXcTwOeV7TFcpRxr+U0 7SJGPIXFUVXEFWNrOXPY6 8KP79qXRcy9X3 bBM2H7OzSHXlebitqfxqd DJ0EVOiQNCikG24gEMyYH hjDu9my8Y0x515CPGbHED fgJ61Zj2bmDjd YLYjnHTYfH4jjjnhe1czl expLbCtCSDgFEv1CQc4GJ HztCxbJcUpMXW5HlO6WUG 0jCYxjY5efOvm ejvfcM4wDpn+MTAvMTYvM Ro6QGaqsPF+PEQwFOE0bA ksSIjkYMOivF4xEWUhW8g 0MbHuJuM5ZYow P4StRXYyikwmDu20mC0eM xEyHmR5NYeyK1LaqvK9GC HcnOTlBLdhUGJ6K21st1B 4AUEuNJMvOYZ3 lDI6yF4yaMzgsgclrAIme DsgdmVydGljYWwtYWxpZ2 46IHRvcDsnPjQyIFllYXJ vAI82RP03jGSw t4P5oPV9L8BfCZWqpempp yycoXM3DZXsNSRpoH34mJ RcHVakLp8ej3N6p301NTD tBZOtyN13Uq9o sTwuBEAjgHOAwZ0ccrawj 4lllbxiXtQkIVZwMOw7VB q1UETmxVrcFkBfMVC8BzH 1NKO2qTGukJ5q kQyuqwrvkS6aHey+TWFsZ TwvdGQ+BUFeGMB9nFcuOK imOSQsoW0dUNPzM9u4AoF aPvK7RHxgA3Ii PRGqodpmOf21oU8rQkVxH hX1PFzqQ8WotiO8UPEjhQ JhABdzEBQ7F99un5O6AFP wCVLrFKZ8bNA2 wJ8poUtvursmwNSycJmpg fNojVcgMDhbQNkqK042SD ShcAscNv99jKJmhHqattA 4F2ZhEdqpzDV+ OY76RERmBM24rFSwtOLob 9owrVm0IvBvQIYvAYP3sU ogKUhzf1RyUCAhI70ivBJ hg6N2EVAqxMyx gWSwZhUvqNL4hL6rEZfsm trlo4tdegbySufll0qxtv 77yH38T43rIHxtMYAtUOH zMCUiIHZhbGln tx4vkE9xPi8+KTSgeWX6t YO5tD9qCdXdToF5TEkvM3 98OiVigCDrWrruz5npm2z psDu4YsFrIXOu toCkhZfzAIG8d2FpJh71F 29sIHdpZHRoPSIyMCUiIH XxmYlikh3dbC8pBb8+PC9 zz5gncf28iM57 dHI+SBDpEMV3pDerXFwfW WPxuS8uVBgyGsY1RGZdKg WryF62uDSqXFpsRj7vsSr qeSgtQZ8sSYVd dlshl440RcExb3ohEJHfx AVsJLqiTCE4R41dc4R0BT YcELXvFBO1oLZ3sS7gvGl nbjogbGVmdDsg bqMkcZauQVfvOVqlU808J YXwgVkqQmHodFAwN1ayws RJDG9oGhjajUJ+PHRkIHN 0eWxlPSdwYWRk gP8xQEUjY3s3MrEmExS9V IbjI1KypxA1VFSjoRDrEE CtjIUXsO7hmxtoy0yenrp gIzAwMDAwMDt0 OUu5KBYvhHydOcPkVQK5Y tB0FZS7fPLxbX0ljRrfnn fwdJ3oRgk+RklOOjwvdGQ +RTHqCPW6cXoy HZxjWPXpnD5mDFOpW2s4I xZkTxT2JPvgB7FvqdD9IO XewFPcHMMvrGBEnA4napz vc6gpmlibTuYp KXBfFFf1TRw2KHCysXouW eZfFOI7NxI7WJW7lRQgzE 8kjBlemdjgwG8qNog+TVJ OOjwvdGQ+PHRk OBR6fVjkGZloHFMxyS7eR DCgI7c9ZlDzHdX5DHzyQ4 VnegP7XLTkmIHjXXSwxWU AoC0lzdqjc3te bxygFtCtGRDwWKz1CNq8N GApdBnuXbUhDBM5TdP7XG T5wQSxlR7cfVcwgtpxlW5 wOyc+DDV4QCX8 OM34EC92V0VpDuqiuQUxa +PHRhYmxlIHdpZHRoPS koQSDvKmSpaIriMO7mRi7 yZGVyLWNvbGxh cHNlOiBj (more content not included)... Normal [facility] PROF CHEM 8 (BAS METB)on Anion gap [Moles/Vol] 8.3 mmol/L Normal [facility] Comment on above: Performed By: #### I NFLUAB #### [facility] [address] [address] [address] Deepak Greenfield Calcium [Mass/Vol] 8.5 mg/dL Normal 8.5-10.1 [facility] Comment on above: Performed By: #### I NFLUAB #### [facility] [address] [address] [address] Deepak Greenfield Chloride [Moles/Vol] 104 mmol/L Normal 98-107 [facility] Comment on above: Performed By: #### I NFLUAB #### [facility] [address] [address] [address] Deepak Greenfield CO2 [Moles/Vol] 30.0 mmol/L Normal 21.0-32.0 [facility] Comment on above: Performed By: #### I NFLUAB #### [facility] [address] [address] [address] Deepak Greenfield Creatinine [Mass/Vol] 0.46 mg/dL Critically low 0.70-1.30 [facility] Comment on above: Performed By: #### I NFLUAB #### [facility] [address] [address] [address] Deepak Greenfield EGFR-AF [place]ER >60 Normal >=60 [facility] Comment on above: Performed By: #### I NFLUAB #### [facility] [address] [address] [address] Deepak Greenfield EGFR-NON AF [place]ER >60 Normal >=60 [facility] Comment on above: Performed By: #### I NFLUAB #### [facility] [address] [address] [address] Deepak Greenfield Glucose [Mass/Vol] 152 mg/dL Critically high 74-[address] [facility] Comment on above: Performed By: #### I NFLUAB #### [facility] [address] [address] [address] Deepak Greenfield Potassium [Moles/Vol] 4.3 mmol/L Normal 3.5-5.1 [facility] Comment on above: Performed By: #### I NFLUAB #### [facility] [address] [address] [address] Deepak Greenfield Sodium [Moles/Vol] 138 mmol/L Normal 136-145 [facility] Comment on above: Performed By: #### I NFLUAB #### [facility] [address] [address] [address] Deepak Greenfield Urea nitrogen [Mass/Vol] 9.0 mg/dL Normal 7.0-18.0 [facility] Comment on above: Performed By: #### I NFLUAB #### [facility] [address] [address] [address] Deepak Greenfield Urea nitrogen/Creatinine [Mass ratio] 19.6 mg/mg Normal [facility] Comment on above: Performed By: #### I NFLUAB #### [facility] [address] [address] [address] Deepak Greenfield AMMONIAon 07-29-2022 Ammonia (P) [Moles/Vol] 69 umol/L Critically high 11-32 [facility] Comment on above: Performed By: #### A MM #### [facility] [address] [address] [address] Deepak Greenfield CBC AUTO DIFFon 07-29-2022 BASO # 0.0 103/ul Normal 0.0-0.1 [facility] Comment on above: Performed By: #### M G, CMP #### [facility] [address] [place] [address] Dr. Deepak Greenfield Basophils/100 WBC (Bld) 0.2 % Normal 0.2-2.0 [facility] Comment on above: Performed By: #### M G, CMP #### [facility] [address] [place] [address] Dr. Deepak Greenfield EO # 0.0 103/ul Normal 0.0-0.7 [facility] Comment on above: Performed By: #### M G, CMP #### [facility] [address] [place] [address] Dr. Deepak Greenfield Eosinophils/100 WBC (Bld) 0.0 % Critically low 0.9-7.0 [facility] Comment on above: Performed By: #### M G, CMP #### [facility] [address] [place] [address] Dr. Deepak Greenfield Erythrocyte distribution width (RBC) [Ratio] 13.2 % Normal 11.0-15.0 [facility] Comment on above: Performed By: #### M G, CMP #### [facility] [address] [place] [address] Dr. Deepak Greenfield Hematocrit (Bld) [Volume fraction] 33.1 % Critically low 42.0-54.0 [facility] Comment on above: Performed By: #### M G, CMP #### [facility] [address] [place] [address] Dr. Deepak Greenfield Hemoglobin (Bld) [Mass/Vol] 10.8 g/dL Critically low 14.0-18.0 [facility] Comment on above: Performed By: #### M G, CMP #### [facility] [address] [place] [address] Dr. Deepak Greenfield IG # 0.04 10e3/ul Critically high 0.00-0.03 [facility] Comment on above: Performed By: #### M G, CMP #### [facility] [address] [address] [address] Deepak Greenfield IG % 0.5 % Normal 0.0-0.5 [facility] Comment on above: Performed By: #### M G, CMP #### [facility] [address] [address] [address] Deepak Greenfield LYMPH # 1.1 103/ul Critically low 1.2-3.8 [facility] Comment on above: Performed By: #### M G, CMP #### [facility] [address] [address] [address] Deepak Greenfield Lymphocytes/100 WBC (Bld) 13.6 % Critically low 20.5-60.0 [facility] Comment on above: Performed By: #### M G, CMP #### [facility] [address] [place] [address] Dr. Deepak Greenfield MANUAL DIFF REQ NO Normal [facility] Comment on above: Performed By: #### M G, CMP #### [facility] [address] [place] [address] Dr. Deepak Greenfield MCH (RBC) [Entitic mass] 32.2 pg Normal 25.9-34.0 [facility] Comment on above: Performed By: #### M G, CMP #### [facility] [address] [place] [address] Dr. Deepak Greenfield MCHC (RBC) [Mass/Vol] 32.6 g/dL Normal 29.9-35.2 [facility] Comment on above: Performed By: #### M G, CMP #### [facility] [address] [place] [address] Dr. Deepak Greenfield MCV (RBC) [Entitic vol] 98.8 fL Critically high 80.0-94.0 [facility] Comment on above: Performed By: #### M G, CMP #### [facility] [address] [place] [address] Dr. Deepak Greenfield MONO # 0.3 103/ul Normal 0.3-0.8 [facility] Comment on above: Performed By: #### M G, CMP #### [facility] [address] [address] [address] Deepak Greenfield Monocytes/100 WBC (Bld) 3.8 % Normal 1.7-12.0 [facility] Comment on above: Performed By: #### M G, CMP #### [facility] [address] [place] [address] Dr. Deepak Greenfield NEUT # 6.7 103/ul Critically high 1.4-6.5 [facility] Comment on above: Performed By: #### M G, CMP #### [facility] [address] [place] [address] Dr. Deepak Greenfield Neutrophils/100 WBC (Bld) 81.9 % Critically high 43.0-75.0 [facility] Comment on above: Performed By: #### M G, CMP #### [facility] [address] [place] [address] Dr. Deepak Greenfield Platelet mean volume (Bld) [Entitic vol] 9.6 fL Normal 9.5-13.5 [facility] Comment on above: Performed By: #### M G, CMP #### [facility] [address] [place] [address] Dr. Deepak Greenfield PLT 257 103/ul Normal 150-450 [facility] Comment on above: Performed By: #### M G, CMP #### [facility] [address] [place] [address] Dr. Deepak Greenfield RBC 3.35 106/ul Critically low 4.70-6.10 [facility] Comment on above: Performed By: #### M G, CMP #### [facility] [address] [place] [address] Dr. Deepak Greenfield WBC 8.2 103/ul Normal 4.0-11.0 [facility] Comment on above: Performed By: #### M G, CMP #### [facility] [address] [place] [address] Dr. Deepak Greenfield LACTATE/LACTIC ACIDon 2022 Lactate [Moles/Vol] 1.1 mmol/L Normal 0.4-2.0 [facility] Comment on above: Performed By: #### I NFLUAB #### [facility] [address] [address] [address] Deepak Greenfield PROF CHEM 8 (BAS METB)on Anion gap [Moles/Vol] 9.4 mmol/L Normal [facility] Comment on above: Performed By: #### I NFLUAB #### [facility] [address] [place] [address] Dr. Deepak Greenfield Calcium [Mass/Vol] 8.0 mg/dL Critically low 8.5-10.1 [facility] Comment on above: Performed By: #### I NFLUAB #### [facility] [address] [place] [address] Dr. Deepak Greenfield Chloride [Moles/Vol] 105 mmol/L Normal 98-107 [facility] Comment on above: Performed By: #### I NFLUAB #### [facility] [address] [place] [address] Dr. Deepak Greenfield CO2 [Moles/Vol] 30.7 mmol/L Normal 21.0-32.0 [facility] Comment on above: Performed By: #### I NFLUAB #### [facility] [address] [place] [address] Dr. Deepak Greenfield Creatinine [Mass/Vol] 0.66 mg/dL Critically low 0.70-1.30 [facility] Comment on above: Performed By: #### I NFLUAB #### [facility] [address] [place] [address] Dr. Deepak Greenfield EGFR-AF [place]ER >60 Normal >=60 [facility] Comment on above: Performed By: #### I NFLUAB #### [facility] [address] [place] [address] Dr. Deepak Greenfield EGFR-NON AF [place] >60 Normal >=60 [facility] Comment on above: Performed By: #### I NFLUAB #### [facility] [address] [place] [address] Dr. Deepak Greenfield Glucose [Mass/Vol] 177 mg/dL Critically high 74-[address] [facility] Comment on above: Performed By: #### I NFLUAB #### [facility] [address] [place] [address] Dr. Deepak Greenfield Potassium [Moles/Vol] 4.1 mmol/L Normal 3.5-5.1 [facility] Comment on above: Performed By: #### I NFLUAB #### [facility] [address] [place] [address] Dr. Deepak Greenfield Sodium [Moles/Vol] 141 mmol/L Normal 136-145 [facility] Comment on above: Performed By: #### I NFLUAB #### [facility] [address] [place] [address] Dr. Deepak Greenfield Urea nitrogen [Mass/Vol] 9.0 mg/dL Normal 7.0-18.0 [facility] Comment on above: Performed By: #### I NFLUAB #### [facility] [address] [place] [address] Dr. Deepak Greenfield Urea nitrogen/Creatinine [Mass ratio] 13.6 mg/mg Normal [facility] Comment on above: Performed By: #### I NFLUAB #### [facility] [address] [place] [address] Dr. Deepak Greenfield AMMONIAon 07-28-2022 Ammonia (P) [Moles/Vol] 68 umol/L Critically high 11-32 [facility] Comment on above: Performed By: #### B MP #### [facility] [address] [place] [address] Dr. Deepak Greenfield CBC AUTO DIFFon 07-28-2022 BASO # 0.0 103/ul Normal 0.0-0.1 [facility] Comment on above: Performed By: #### C BC #### [facility] [address] [place] [address] Dr. Deepak Greenfield Basophils/100 WBC (Bld) 0.3 % Normal 0.2-2.0 [facility] Comment on above: Performed By: #### C BC #### [facility] [address] [place] [address] Dr. Deepak Greenfield EO # 0.0 103/ul Normal 0.0-0.7 [facility] Comment on above: Performed By: #### C BC #### [facility] [address] [place] [address] Dr. Deepak Greenfield Eosinophils/100 WBC (Bld) 0.0 % Critically low 0.9-7.0 [facility] Comment on above: Performed By: #### C BC #### [facility] [address] [place] [address] Dr. Deepak Greenfield Erythrocyte distribution width (RBC) [Ratio] 13.3 % Normal 11.0-15.0 [facility] Comment on above: Performed By: #### C BC #### [facility] [address] [place] [address] Dr. Deepak Greenfield Hematocrit (Bld) [Volume fraction] 37.0 % Critically low 42.0-54.0 [facility] Comment on above: Performed By: #### C BC #### [facility] [address] [place] [address] Dr. Deepak Greenfield Hemoglobin (Bld) [Mass/Vol] 12.3 g/dL Critically low 14.0-18.0 [facility] Comment on above: Performed By: #### C BC #### [facility] [address] [place] [address] Dr. Deepak Greenfield IG # 0.06 10e3/ul Critically high 0.00-0.03 [facility] Comment on above: Performed By: #### C BC #### [facility] [address] [place] [address] Dr. Deepak Greenfield IG % 0.5 % Normal 0.0-0.5 [facility] Comment on above: Performed By: #### C BC #### [facility] [address] [place] [address] Dr. Deepak Greenfield LYMPH # 2.9 103/ul Normal 1.2-3.8 [facility] Comment on above: Performed By: #### C BC #### [facility] [address] [place] [address] Dr. Deepak Greenfield Lymphocytes/100 WBC (Bld) 23.5 % Normal 20.5-60.0 [facility] Comment on above: Performed By: #### C BC #### [facility] [address] [place] [address] Dr. Deepak Greenfield MANUAL DIFF REQ NO Normal [facility] Comment on above: Performed By: #### C BC #### [facility] [address] [place] [address] Dr. Deepak Greenfield MCH (RBC) [Entitic mass] 32.4 pg Normal 25.9-34.0 [facility] Comment on above: Performed By: #### C BC #### [facility] [address] [place] [address] Dr. Deepak Greenfield MCHC (RBC) [Mass/Vol] 33.2 g/dL Normal 29.9-35.2 [facility] Comment on above: Performed By: #### C BC #### [facility] [address] [place] [address] Dr. Deepak Greenfield MCV (RBC) [Entitic vol] 97.4 fL Critically high 80.0-94.0 [facility] Comment on above: Performed By: #### C BC #### [facility] [address] [place] [address] Dr. Deepak Greenfield MONO # 1.0 103/ul Critically high 0.3-0.8 [facility] Comment on above: Performed By: #### C BC #### [facility] [address] [place] [address] Dr. Deepak Greenfield Monocytes/100 WBC (Bld) 8.0 % Normal 1.7-12.0 [facility] Comment on above: Performed By: #### C BC #### [facility] [address] [place] [address] Dr. Deepak Greenfield NEUT # 8.3 103/ul Critically high 1.4-6.5 [facility] Comment on above: Performed By: #### C BC #### [facility] [address] [place] [address] Dr. Deepak Greenfield Neutrophils/100 WBC (Bld) 67.7 % Normal 43.0-75.0 [facility] Comment on above: Performed By: #### C BC #### [facility] [address] [place] [address] Dr. Deepak Greenfield Platelet mean volume (Bld) [Entitic vol] 9.7 fL Normal 9.5-13.5 [facility] Comment on above: Performed By: #### C BC #### [facility] [address] [place] [address] Dr. Deepak Greenfield PLT 325 103/ul Normal 150-450 [facility] Comment on above: Performed By: #### C BC #### [facility] [address] [place] [address] Dr. Deepak Greenfield RBC 3.80 106/ul Critically low 4.70-6.10 [facility] Comment on above: Performed By: #### C BC #### [facility] [address] [place] [address] Dr. Deepak Greenfield WBC 12.2 103/ul Critically high 4.0-11.0 [facility] Comment on above: Performed By: #### C BC #### [facility] [address] [place] [address] Dr. Deepak Greenfield CULTURE BLOODon 07-28-2022 Microscopic examination of blood, culture Culture Observations: NO GROWTH AT 5 DAYS. Normal [facility] Comment on above: Performed By: #### B [id number] #### [facility] [address] [place] [address] Dr. Deepak Greenfield Microscopic examination of blood, culture Culture Observations: NO GROWTH AT 5 DAYS. Normal [facility] Comment on above: Performed By: #### C BC #### [facility] [address] [place] [address] Dr. Deepak Greenfield LACTATE/LACTIC ACIDon 2022 Lactate [Moles/Vol] 2.5 mmol/L Critically high 0.4-2.0 [facility] Comment on above: Performed By: #### C VDTBH #### [facility] [address] [place] [address] Dr. Deepak Greenfield PROF 14(COMP METB)on 023 Albumin [Mass/Vol] 3.1 g/dL Critically low 3.4-5.0 [facility] Comment on above: Performed By: #### C BC #### [facility] [address] [place] [address] Dr. Deepak Greenfield Albumin/Globulin [Mass ratio] 0.7 {ratio} Normal [facility] Comment on above: Performed By: #### C BC #### [facility] [address] [place] [address] Dr. Deepak Greenfield ALP [Catalytic activity/Vol] 51 U/L Normal 46-116 [facility] Comment on above: Performed By: #### C BC #### [facility] [address] [place] [address] Dr. Deepak Greenfield ALT [Catalytic activity/Vol] 106 U/L Critically high 16-63 [facility] Comment on above: Performed By: #### C BC #### [facility] [address] [place] [address] Dr. Deepak Greenfield Anion gap [Moles/Vol] 14.2 mmol/L Normal [facility] Comment on above: Performed By: #### C BC #### [facility] [address] [place] [address] Dr. Deepak Greenfield AST [Catalytic activity/Vol] 81 U/L Critically high 15-37 [facility] Comment on above: Performed By: #### C BC #### [facility] [address] [place] [address] Dr. Deepak Greenfield Bilirubin [Mass/Vol] 0.4 mg/dL Normal 0.2-1.0 [facility] Comment on above: Performed By: #### C BC #### [facility] [address] [place] [address] Dr. Deepak Greenfield Calcium [Mass/Vol] 8.9 mg/dL Normal 8.5-10.1 [facility] Comment on above: Performed By: #### C BC #### [facility] [address] [place] [address] Dr. Deepak Greenfield Chloride [Moles/Vol] 105 mmol/L Normal 98-107 [facility] Comment on above: Performed By: #### C BC #### [facility] [address] [place] [address] Dr. Deepak Greenfield CO2 [Moles/Vol] 27.9 mmol/L Normal 21.0-32.0 [facility] Comment on above: Performed By: #### C BC #### [facility] [address] [place] [address] Dr. Deepak Greenfield Creatinine [Mass/Vol] 0.77 mg/dL Normal 0.70-1.30 [facility] Comment on above: Performed By: #### C BC #### [facility] [address] [place] [address] Dr. Deepak Greenfield EGFR-AF [place] ISLANDER >60 Normal >=60 [facility] Comment on above: Performed By: #### C BC #### [facility] [address] [place] [address] Dr. Deepak Greenfield EGFR-NON AF [place]ER >60 Normal >=60 [facility] Comment on above: Performed By: #### C BC #### [facility] [address] [place] [address] Dr. Deepak Greenfield Globulin (S) [Mass/Vol] 4.3 g/dL Normal [facility] Comment on above: Performed By: #### C BC #### [facility] [address] [place] [address] Dr. Deepak Greenfield Glucose [Mass/Vol] 162 mg/dL Critically high 74-[address] [facility] Comment on above: Performed By: #### C BC #### [facility] [address] [place] [address] Dr. Deepak Greenifeld Potassium [Moles/Vol] 4.1 mmol/L Normal 3.5-5.1 [facility] Comment on above: Performed By: #### C BC #### [facility] [address] [place] [address] Dr. Deepak Greenfield Protein [Mass/Vol] 7.4 g/dL Normal 6.4-8.2 [facility] Comment on above: Performed By: #### C BC #### [facility] [address] [place] [address] Dr. Deepak Greenfield Sodium [Moles/Vol] 143 mmol/L Normal 136-145 [facility] Comment on above: Performed By: #### C BC #### [facility] [address] [place] [address] Dr. Deepak Greenfield Urea nitrogen [Mass/Vol] 12.0 mg/dL Normal 7.0-18.0 [facility] Comment on above: Performed By: #### C BC #### [facility] [address] [place] [address] Dr. Deepak Greenfield Urea nitrogen/Creatinine [Mass ratio] 15.6 mg/mg Normal [facility] Comment on above: Performed By: #### C BC #### [facility] [address] [place] [address] Dr. Deepak Greenfield RESPIRATORY PANEL PLUSon Adenovirus Not detected Normal NOT DETECTED [facility] Comment on above: Performed By: #### B MP #### [facility] [address] [place] [address] Dr. Deepak Murphy. Parapertusis Not detected Normal NOT DETECTED [facility] Comment on above: Performed By: #### B MP #### [facility] [address] [place] [address] Dr. Deepak Murphy. Pertussis Not detected Normal NOT DETECTED [facility] Comment on above: Performed By: #### B MP #### [facility] [address] [place] [address] Dr. Deepak Greenfield Chlamydia Pneumoniae Not detected Normal NOT DETECTED [facility] Comment on above: Performed By: #### B MP #### [facility] [address] [place] [address] Dr. Deepak Greenfield Coronavirus 229E Not detected Normal NOT DETECTED [facility] Comment on above: Performed By: #### B MP #### [facility] [address] [place] [address] Dr. Deepak Greenfield Coronavirus HKU1 Not detected Normal NOT DETECTED [facility] Comment on above: Performed By: #### B MP #### [facility] [address] [place] [address] Dr. Deepak Greenfield Coronavirus NL63 Not detected Normal NOT DETECTED [facility] Comment on above: Performed By: #### B MP #### [facility] [address] [address] [address] Deepak Greenfield Coronavirus OC43 Not detected Normal NOT DETECTED [facility] Comment on above: Performed By: #### B MP #### [facility] [address] [place] [address] Dr. Deepak Greenfield Influenza A H1 Not detected Normal NOT DETECTED [facility] Comment on above: Performed By: #### B MP #### [facility] [address] [place] [address] Dr. Deepak Greenfield Influenza A H1 2009 Not detected Normal NOT DETECTED [facility] Comment on above: Performed By: #### B MP #### [facility] [address] [place] [address] Dr. Deepak Greenfield Influenza A H3 Not detected Normal NOT DETECTED [facility] Comment on above: Performed By: #### B MP #### [facility] [address] [place] [address] Dr. Deepak Greenfield Influenza B Not detected Normal NOT DETECTED [facility] Comment on above: Performed By: #### B MP #### [facility] [address] [place] [address] Dr. Deepak Greenfield Metapneumovirus Detected Abnormal NOT DETECTED The [facility] Comment on above: Performed By: #### B MP #### [facility] [address] [place] [address] Dr. Deepak Greenfield Mycoplas. Pneumoniae Not detected Normal NOT DETECTED [facility] Comment on above: Performed By: #### B MP #### [facility] [address] [place] [address] Dr. Deepak Greenfield Parainfluenza 1 Not detected Normal NOT DETECTED [facility] Comment on above: Performed By: #### B MP #### [facility] [address] [place] [address] Dr. Deepak Greenfield Parainfluenza 2 Not detected Normal NOT DETECTED [facility] Comment on above: Performed By: #### B MP #### [facility] [address] [place] [address] Dr. Deepak Greenfield Parainfluenza 3 Not detected Normal NOT DETECTED [facility] Comment on above: Performed By: #### B MP #### [facility] [address] [place] [address] Dr. Deepak Greenfield Parainfluenza 4 Not detected Normal NOT DETECTED [facility] Comment on above: Performed By: #### B MP #### [facility] [address] [place] [address] Dr. Deepak Greenfield Rhino/Enterovirus Not detected Normal NOT DETECTED [facility] Comment on above: Performed By: #### B MP #### [facility] [address] [place] [address] Dr. Deepak Greenfield RP2 Header 1 RESPIRATORY PANEL: VIRUSES Normal [facility] Comment on above: Performed By: #### B MP #### [facility] [address] [place] [address] Dr. Deepak Greenfield RP2 Header 2 RESPIRATORY PANEL: BACTERIA Normal [facility] Comment on above: Performed By: #### B MP #### [facility] [address] [place] [address] Dr. Deepak Greenfield RSV Not detected Normal NOT DETECTED [facility] Comment on above: Performed By: #### B MP #### [facility] [address] [place] [address] Dr. Deepak Greenfield SARS-CoV-2 (COVID-19) RNA CINDY+probe Ql (Unsp spec) Not detected Normal NOT DETECTED [facility] Comment on above: Performed By: #### B MP #### [facility] [address] [place] [address] Dr. Deepak Greenfield XR CHEST 1 Von [...] Akua PEREZ Date: 2022-07-28 20:23 Normal [facility] AMMONIAon 07-27-2022 Ammonia (P) [Moles/Vol] 76 umol/L Critically high 11-32 [facility] Comment on above: Performed By: #### M G, CMP #### [facility] [address] [place] [address] Dr. Deepak Greenfield CBC W MANUAL DIFFon 07-28-19 23 ATYPICAL LYMPH # Normal [facility] Comment on above: Performed By: #### M G, CMP #### [facility] [address] [place] [address] Dr. Deepak Greenfield ATYPICAL LYMPH % Normal [facility] Comment on above: Performed By: #### M G, CMP #### [facility] [address] [place] [address] Dr. Deepak Greenfield BAND # 0.4 103/ul Critically high 0.0-0.3 [facility] Comment on above: Performed By: #### M G, CMP #### [facility] [address] [place] [address] Dr. Deepak Greenfield BAND % 4 % Normal 0-5 [facility] Comment on above: Performed By: #### M G, CMP #### [facility] [address] [place] [address] Dr. Deepak Greenfield BASOM # 0.00 103/ul Normal 0.00-0.10 [facility] Comment on above: Performed By: #### M G, CMP #### [facility] [address] [place], [place] [id number] Dr. Deepak Greenfield BASOM % 0.0 % Critically low 0.2-2.0 [facility] Comment on above: Performed By: #### M G, CMP #### [facility] [address] [place] [address] Dr. Deepak Greenfield BLAST # Normal [facility] Comment on above: Performed By: #### M G, CMP #### [facility] [address] [place] [address] Dr. Deepak Greenfield BLAST % Normal [facility] Comment on above: Performed By: #### M G, CMP #### [facility] [address] [place] [address] Dr. Deepak Greenfield CORRECTED WBC Normal 4.0-11.0 [facility] Comment on above: Performed By: #### M G, CMP #### [facility] [address] [place] [address] Dr. Deepak Greenfield EOS # 0.00 103/ul Normal 0.00-0.70 [facility] Comment on above: Performed By: #### M G, CMP #### [facility] [address] [place] [address] Dr. Deepak Greenfiedl EOS% 0.0 % Critically low 0.9-7.0 [facility] Comment on above: Performed By: #### M G, CMP #### [facility] [address] [place] [address] Dr. Deepak Greenfield HCT 29.6 % Critically low 42.0-54.0 [facility] Comment on above: Performed By: #### M G, CMP #### [facility] [address] [place] [address] Dr. Deepak Greenfield HGB 10.4 g/dl Critically low 14.0-18.0 [facility] Comment on above: Performed By: #### M G, CMP #### [facility] [address] [place] [address] Dr. Deepak Greenfield LYMPHM # 0.71 103/ul Critically low 1.20-3.80 [facility] Comment on above: Performed By: #### M G, CMP #### [facility] [address] [place] [address] Dr. Deepak Greenfield LYMPHM% 8.0 % Critically low 20.5-60.0 [facility] Comment on above: Performed By: #### M G, CMP #### [facility] [address] [place] [address] Dr. Deepak Greenfield MCH 33.0 pg Normal 25.9-34.0 [facility] Comment on above: Performed By: #### M G, CMP #### [facility] [address] [place] [address] Dr. Deepak Greenfield MCHC 35.1 g/dl Normal 29.9-35.2 [facility] Comment on above: Performed By: #### M G, CMP #### [facility] [address] [place] [address] Dr. Deepak Greenfield MCV 94.0 fL Normal 80.0-94.0 [facility] Comment on above: Performed By: #### M G, CMP #### [facility] [address] [place] [address] Dr. Deepak Greenfield METAMYELOCYTE # Normal [facility] Comment on above: Performed By: #### M G, CMP #### [facility] [address] [place] [address] Dr. Deepak Greenfield METAMYELOCYTE % Normal [facility] Comment on above: Performed By: #### M G, CMP #### [facility] [address] [place] [address] Dr. Deepak Greenfield MONOM# 0.71 103/ul Normal 0.30-0.80 [facility] Comment on above: Performed By: #### M G, CMP #### [facility] [address] [place] [address] Dr. Deepak Greenfield MONOM% 8.0 % Normal 1.7-12.0 [facility] Comment on above: Performed By: #### M G, CMP #### [facility] [address] [place] [address] Dr. Deepak Greenfield MPV 9.6 fL Normal 9.5-13.5 [facility] Comment on above: Performed By: #### M G, CMP #### [facility] [address] [place] [address] Dr. Deepak Greenfield MYELOCYTE # Normal [facility] Comment on above: Performed By: #### M G, CMP #### [facility] [address] [place] [address] Dr. Deepak Greenfield MYELOCYTE % Normal [facility] Comment on above: Performed By: #### M G, CMP #### [facility] [address] [place] [address] Dr. Deepak Greenfield NRBC Normal [facility] Comment on above: Performed By: #### M G, CMP #### [facility] [address] [place] [address] Dr. Deepak Greenfield PLT 267 103/ul Normal 150-450 [facility] Comment on above: Performed By: #### M G, CMP #### [facility] [address] [place] [address] Dr. Deepak Greenfield RBC 3.15 106/ul Critically low 4.70-6.10 [facility] Comment on above: Performed By: #### M G, CMP #### [facility] [address] [place] [address] Dr. Deepak Greenfield RDW 12.9 % Normal 11.0-15.0 [facility] Comment on above: Performed By: #### M G, CMP #### [facility] [address] [place] [address] Dr. Deepak Greenfield SEG # 7.12 103/ul Critically high 1.40-6.50 [facility] Comment on above: Performed By: #### M G, CMP #### [facility] [address] [place] [address] Dr. Deepak Greenfield SEG % 80.0 % Critically high 43.0-75.0 [facility] Comment on above: Performed By: #### M G, CMP #### [facility] [address] [place] [address] Dr. Deepak Greenfield WBC 8.9 103/ul Normal 4.0-11.0 [facility] Comment on above: Performed By: #### M G, CMP #### [facility] [address] [place] [address] Dr. Deepak Greenfield PROF CHEM 8 (BAS METB)on Anion gap [Moles/Vol] 12.4 mmol/L Normal [facility] Comment on above: Performed By: #### C BC #### [facility] [address] [place] [address] Dr. Deepak Greenfield Calcium [Mass/Vol] 8.2 mg/dL Critically low 8.5-10.1 [facility] Comment on above: Performed By: #### C BC #### [facility] [address] [place] [address] Dr. Deepak Greenfield Chloride [Moles/Vol] 101 mmol/L Normal 98-107 [facility] Comment on above: Performed By: #### C BC #### [facility] [address] [place] [address] Dr. Deepak Greenfield CO2 [Moles/Vol] 25.0 mmol/L Normal 21.0-32.0 [facility] Comment on above: Performed By: #### C BC #### [facility] [address] [place] [address] Dr. Deepak Greenfield Creatinine [Mass/Vol] 0.53 mg/dL Critically low 0.70-1.30 [facility] Comment on above: Performed By: #### C BC #### [facility] [address] [place] [address] Dr. Deepak Greenfield EGFR-AF [place]ER >60 Normal >=60 [facility] Comment on above: Performed By: #### C BC #### [facility] [address] [place] [address] Dr. Deepak Greenfield EGFR-NON AF [place] >60 Normal >=60 [facility] Comment on above: Performed By: #### C BC #### [facility] [address] [place] [address] Dr. Deepak Greenfield Glucose [Mass/Vol] 161 mg/dL Critically high 74-106 [facility] Comment on above: Performed By: #### C BC #### [facility] [address] [address] [address] Deepak Gerenfield Potassium [Moles/Vol] 4.4 mmol/L Normal 3.5-5.1 [facility] Comment on above: Performed By: #### C BC #### [facility] [address] [address] [address] Deepak Greenfield Sodium [Moles/Vol] 134 mmol/L Critically low 136-145 [facility] Comment on above: Performed By: #### C BC #### [facility] [address] [place] [address] Dr. Deepak Greenfield Urea nitrogen [Mass/Vol] 13.0 mg/dL Normal 7.0-18.0 [facility] Comment on above: Performed By: #### C BC #### [facility] [address] [place] [address] Dr. Deepak Greenfield Urea nitrogen/Creatinine [Mass ratio] 24.5 mg/mg Normal [facility] Comment on above: Performed By: #### C BC #### [facility] [address] [place] [address] Dr. Deepak Greenfield AMMONIAon 07-26-2022 Ammonia (P) [Moles/Vol] 56 umol/L Critically high 11-32 [facility] Comment on above: Performed By: #### M G, CMP #### [facility] [address] [place] [address] Dr. Deepak Greenfield CARDIAC BEATRIS ADMITon 023 CK [Catalytic activity/Vol] 83 U/L Normal 39-308 [facility] Comment on above: Performed By: #### B MP #### [facility] [address] [place] [address] Dr. Deepak Greenfield CK.MB [Mass/Vol] 0.86 ng/mL Normal <=3.60 [facility] Comment on above: Performed By: #### B MP #### [facility] [address] [place] [address] Dr. Deepak Greenfield HSTROP 7.4 pg/mL Normal 4.0-76.1 [facility] Comment on above: Result Comment: CUT- OFF POINTS HAVE BEEN ESTABLISHED BASED ON THE FOURTH UNIVERSAL DEFINITIONS OF MYOCARDIAL INFARCTION. THE UPPER REFERENCE LIMIT (URL) OF TROPONIN, DEFINED THE 99TH PERCENTILE OF cTnI DISTRIBUTION IN A REFERENCE POPULATION, HAS BEEN CONFIRMED THE DECISION THRESHOLD FOR IN DIAGNOSIS. Performed By: #### B MP #### [facility] [address] [place] [address] Dr. Deepak Greenfield VALE 46 ng/mL Normal 16-96 [facility] Comment on above: Performed By: #### B MP #### [facility] [address] [place] [address] Dr. Deepak Greenfield CBC AUTO DIFFon 07-26-2022 BASO # 0.1 103/ul Normal 0.0-0.1 [facility] Comment on above: Performed By: #### M G, CMP #### [facility] [address] [place] [address] Dr. Deepak Greenfield Basophils/100 WBC (Bld) 0.5 % Normal 0.2-2.0 [facility] Comment on above: Performed By: #### M G, CMP #### [facility] [address] [place] [address] Dr. Deepak Greenfield EO # 0.2 103/ul Normal 0.0-0.7 [facility] Comment on above: Performed By: #### M G, CMP #### [facility] [address] [place] [address] Dr. Deepak Greenfield Eosinophils/100 WBC (Bld) 2.1 % Normal 0.9-7.0 [facility] Comment on above: Performed By: #### M G, CMP #### [facility] [address] [place] [address] Dr. Deepak Greenfield Erythrocyte distribution width (RBC) [Ratio] 13.2 % Normal 11.0-15.0 [facility] Comment on above: Performed By: #### M G, CMP #### [facility] [address] [place] [address] Dr. Deepak Greenfield Hematocrit (Bld) [Volume fraction] 36.7 % Critically low 42.0-54.0 [facility] Comment on above: Performed By: #### M G, CMP #### [facility] [address] [place] [address] Dr. Deepak Greenfield Hemoglobin (Bld) [Mass/Vol] 12.4 g/dL Critically low 14.0-18.0 [facility] Comment on above: Performed By: #### M G, CMP #### [facility] [address] [place] [address] Dr. Deepak Greenfield IG # 0.04 10e3/ul Critically high 0.00-0.03 [facility] Comment on above: Performed By: #### M G, CMP #### [facility] [address] [place] [address] Dr. Deepak Greenfield IG % 0.4 % Normal 0.0-0.5 [facility] Comment on above: Performed By: #### M G, CMP #### [facility] [address] [place] [address] Dr. Deepak Greenfield LYMPH # 1.7 103/ul Normal 1.2-3.8 [facility] Comment on above: Performed By: #### M G, CMP #### [facility] [address] [place] [address] Dr. Deepak Greenfield Lymphocytes/100 WBC (Bld) 15.6 % Critically low 20.5-60.0 [facility] Comment on above: Performed By: #### M G, CMP #### [facility] [address] [place] [address] Dr. Deepak Greenfield MANUAL DIFF REQ NO Normal [facility] Comment on above: Performed By: #### M G, CMP #### [facility] [address] [place] [address] Dr. Deepak Greenfield MCH (RBC) [Entitic mass] 32.5 pg Normal 25.9-34.0 [facility] Comment on above: Performed By: #### M G, CMP #### [facility] [address] [place] [address] Dr. Deepak Greenfield MCHC (RBC) [Mass/Vol] 33.8 g/dL Normal 29.9-35.2 [facility] Comment on above: Performed By: #### M G, CMP #### [facility] [address] [address] [address] Deepak Greenfield MCV (RBC) [Entitic vol] 96.3 fL Critically high 80.0-94.0 [facility] Comment on above: Performed By: #### M G, CMP #### [facility] [address] [place] [address] Dr. Deepak Greenfield MONO # 1.4 103/ul Critically high 0.3-0.8 [facility] Comment on above: Performed By: #### M G, CMP #### [facility] [address] [place] [address] Dr. Deepak Greenfield Monocytes/100 WBC (Bld) 12.8 % Critically high 1.7-12.0 [facility] Comment on above: Performed By: #### M G, CMP #### [facility] [address] [place] [address] Dr. Deepak Greenfield NEUT # 7.4 103/ul Critically high 1.4-6.5 [facility] Comment on above: Performed By: #### M G, CMP #### [facility] [address] [place] [address] Dr. Deepak Greenfield Neutrophils/100 WBC (Bld) 68.6 % Normal 43.0-75.0 [facility] Comment on above: Performed By: #### M G, CMP #### [facility] [address] [place] [address] Dr. Deepak Greenfield Platelet mean volume (Bld) [Entitic vol] 9.5 fL Normal 9.5-13.5 [facility] Comment on above: Performed By: #### M G, CMP #### [facility] [address] [place] [address] Dr. Deepak Greenfield PLT 314 103/ul Normal 150-450 [facility] Comment on above: Performed By: #### M G, CMP #### [facility] [address] [address] [address] Deepak Greenfield RBC 3.81 106/ul Critically low 4.70-6.10 [facility] Comment on above: Performed By: #### M G, CMP #### [facility] [address] [address] [address] Deepak Greenfield WBC 10.8 103/ul Normal 4.0-11.0 [facility] Comment on above: Performed By: #### M G, CMP #### [facility] [address] [address] [address] Deepak Greenfield [facility]on SARS-CoV-2 (COVID-19) RNA CINDY+probe Ql (Unsp spec) Not detected Normal NOT DETECTED [facility] Comment on above: Result Comment: When [...] for this test is supported by the Marketing Systems Manager of Health and Human Service's declaration [...] used). Performed By: #### C VDTBH #### [facility] [id number] Deepak Greenfield INFLUENZA A AND B AGon 07-26 INFLUANEGH SEE BELOW Normal [facility] Comment on above: Result Comment: Nega tive for Flu A protein angiten. Infection due to Flu A cannot be ruled out. Flu A angiten in the sample may be below the detection limit of the test. Performed By: #### I NFLUAB #### [facility] [address] [place] [address] Dr. Deepak Greenfield [facility] SEE BELOW Normal [facility] Comment on above: Result Comment: Nega tive for Flu B protein antigen. Infection due to Flu B cannot be ruled out. Flu B antigen in the sample may be below the detection limit of the test. Performed By: #### I NFLUAB #### [facility] [address] [place] [address] Dr. Deepak Greenfield INFLUENZA A AG Negative Normal NEGATIVE SEE COMMENT [facility] Comment on above: Performed By: #### I NFLUAB #### [facility] [address] [place] [address] Dr. Deepak Greenfield INFLUENZA B AG Negative Normal NEGATIVE SEE COMMENT [facility] Comment on above: Performed By: #### I NFLUAB #### [facility] [address] [place] [address] Dr. Deepak Greenfield LACTATE/LACTIC ACIDon 2022 Lactate [Moles/Vol] 1.2 mmol/L Normal 0.4-2.0 [facility] Comment on above: Performed By: #### M G, CMP #### [facility] [address] [place] [address] Dr. Deepak Greenfield PROF 14(COMP METB)on 023 Albumin [Mass/Vol] 3.3 g/dL Critically low 3.4-5.0 [facility] Comment on above: Performed By: #### B MP #### [facility] [address] [place] [address] Dr. Deepak Greenfield Albumin/Globulin [Mass ratio] 0.8 {ratio} Normal [facility] Comment on above: Performed By: #### B MP #### [facility] [address] [place] [address] Dr. Deepak Greenfield ALP [Catalytic activity/Vol] 45 U/L Critically low 46-116 [facility] Comment on above: Performed By: #### B MP #### [facility] [address] [place] [address] Dr. Deepak Greenfield ALT [Catalytic activity/Vol] 114 U/L Critically high 16-63 [facility] Comment on above: Performed By: #### B MP #### [facility] [address] [address] [address] Deepak Greenfield Anion gap [Moles/Vol] 14.5 mmol/L Normal [facility] Comment on above: Performed By: #### B MP #### [facility] [address] [address] [address] Deepak Greenfield AST [Catalytic activity/Vol] 71 U/L Critically high 15-37 [facility] Comment on above: Performed By: #### B MP #### [facility] [address] [address] [address] Deepak Greenfield Bilirubin [Mass/Vol] 0.7 mg/dL Normal 0.2-1.0 [facility] Comment on above: Performed By: #### B MP #### [facility] [address] [address] [address] Deepak Greenfield Calcium [Mass/Vol] 9.1 mg/dL Normal 8.5-10.1 [facility] Comment on above: Performed By: #### B MP #### [facility] [address] [address] [address] Deepak Greenfield Chloride [Moles/Vol] 98 mmol/L Normal 98-107 [facility] Comment on above: Performed By: #### B MP #### [facility] [address] [address] [address] Deepak Greenfield CO2 [Moles/Vol] 27.4 mmol/L Normal 21.0-32.0 [facility] Comment on above: Performed By: #### B MP #### [facility] [address] [address] [address] Deepak Greenfield Creatinine [Mass/Vol] 0.65 mg/dL Critically low 0.70-1.30 [facility] Comment on above: Performed By: #### B MP #### [facility] [address] [address] [address] Deepak Greenfield EGFR-AF [place]ER >60 Normal >=60 [facility] Comment on above: Performed By: #### B MP #### [facility] [address] [address] [address] Deepak Greenfield EGFR-NON AF [place]ER >60 Normal >=60 [facility] Comment on above: Performed By: #### B MP #### [facility] [address] [address] [address] Deepak Greenfield Globulin (S) [Mass/Vol] 4.2 g/dL Normal [facility] Comment on above: Performed By: #### B MP #### [facility] [address] [address] [address] Deepak Greenfield Glucose [Mass/Vol] 105 mg/dL Normal 74-106 [facility] Comment on above: Performed By: #### B MP #### [facility] [address] [address] [address] Deepak Greenfield Potassium [Moles/Vol] 3.9 mmol/L Normal 3.5-5.1 [facility] Comment on above: Performed By: #### B MP #### [facility] [address] [place] [address] Dr. Deepak Greenfield Protein [Mass/Vol] 7.5 g/dL Normal 6.4-8.2 [facility] Comment on above: Performed By: #### B MP #### [facility] [address] [place] [address] Dr. Deepak Greenfield Sodium [Moles/Vol] 136 mmol/L Normal 136-145 [facility] Comment on above: Performed By: #### B MP #### [facility] [address] [address] [address] Deepak Greenfield Urea nitrogen [Mass/Vol] 13.0 mg/dL Normal 7.0-18.0 [facility] Comment on above: Performed By: #### B MP #### [facility] [address] [place] [address] Dr. Deepak Greenfield Urea nitrogen/Creatinine [Mass ratio] 20.0 mg/mg Normal [facility] Comment on above: Performed By: #### B MP #### [facility] [address] [place], [place] [address] Dr. Deepak Greenfield XR CHEST 1 Von [...] by: ANICETO GARCIA Date: 2022-07-26 12:27 Normal [facility] Consent for Treatmenton Consent for Treatment [id number] .[id number]:127 Normal [facility] Physician Orderon 07-23-2022 Physician Order [id number] 1.00CD:127 Normal [facility] XR Adult Swallowing Function w/ Videoon [...] mGy = 11.70 DAP = 270.92 Normal [facility] AMMONIAon 06-03-2022 Ammonia (P) [Moles/Vol] 112 umol/L Critically high 11-32 [facility] Comment on above: Performed By: #### A MM #### [facility] [address] [place] [address] Dr. Deepak Greenfield DEPAKENE/ VALPROIC ACIDon DEPAKENE 94.0 ug/ml Normal 50.0-100.0 [facility] Comment on above: Performed By: #### C BC #### [facility] [address] [place] [address] Dr. Deepak Greenfield LIVER PROFILEon 06-03-2022 Albumin [Mass/Vol] 3.6 g/dL Normal 3.4-5.0 [facility] Comment on above: Performed By: #### C BC #### [facility] [address] [place] [address] Dr. Deepak Greenfield Albumin/Globulin [Mass ratio] 0.9 {ratio} Normal [facility] Comment on above: Performed By: #### C BC #### [facility] [address] [place] [address] Dr. Deepak Greenfield ALP [Catalytic activity/Vol] 55 U/L Normal 46-116 [facility] Comment on above: Performed By: #### C BC #### [facility] [address] [place] [address] Dr. Deepak Greenfield ALT [Catalytic activity/Vol] 76 U/L Critically high 16-63 [facility] Comment on above: Performed By: #### C BC #### [facility] [address] [place] [address] Dr. Deepak Greenfield AST [Catalytic activity/Vol] 51 U/L Critically high 15-37 [facility] Comment on above: Performed By: #### C BC #### [facility] [address] [place] [address] Dr. Deepak Greenfield BILI, CONJUGATED 0.1 mg/dL Normal 0.0-0.2 [facility] Comment on above: Performed By: #### C BC #### [facility] [address] [place] [address] Dr. Deepak Greenfield Bilirubin [Mass/Vol] 0.4 mg/dL Normal 0.2-1.0 [facility] Comment on above: Performed By: #### C BC #### [facility] [address] [place] [address] Dr. Deepak Greenfield Globulin (S) [Mass/Vol] 4.1 g/dL Normal [facility] Comment on above: Performed By: #### C BC #### [facility] [address] [place] [address] Dr. Deepak Greenfield Protein [Mass/Vol] 7.7 g/dL Normal 6.4-8.2 [facility] Comment on above: Performed By: #### C BC #### [facility] [address] [place] [address] Dr. Deepak Greenfield AMMONIAon 04-22-2022 Ammonia (P) [Moles/Vol] 108 umol/L Critically high 11-32 [facility] Comment on above: Performed By: #### B MP #### [facility] [address] [place] [address] Dr. Deepak Greenfield CBC AUTO DIFFon 04-22-2022 BASO # 0.0 103/ul Normal 0.0-0.1 [facility] Comment on above: Performed By: #### C BC #### [facility] [address] [place] [address] Dr. Deepak Greenfield Basophils/100 WBC (Bld) 0.5 % Normal 0.2-2.0 [facility] Comment on above: Performed By: #### C BC #### [facility] [address] [place] [address] Dr. Deepak Greenfield EO # 0.1 103/ul Normal 0.0-0.7 [facility] Comment on above: Performed By: #### C BC #### [facility] [address] [place] [address] Dr. Deepak Greenfield Eosinophils/100 WBC (Bld) 1.4 % Normal 0.9-7.0 [facility] Comment on above: Performed By: #### C BC #### [facility] [address] [place] [address] Dr. Deepak Greenfield Erythrocyte distribution width (RBC) [Ratio] 14.2 % Normal 11.0-15.0 [facility] Comment on above: Performed By: #### C BC #### [facility] [address] [place] [address] Dr. Deepak Greenfield Hematocrit (Bld) [Volume fraction] 37.0 % Critically low 42.0-54.0 [facility] Comment on above: Performed By: #### C BC #### [facility] [address] [place] [address] Dr. Deepak Greenfield Hemoglobin (Bld) [Mass/Vol] 12.3 g/dL Critically low 14.0-18.0 [facility] Comment on above: Performed By: #### C BC #### [facility] [address] [place] [address] Dr. Deepak Greenfield IG # 0.00 10e3/ul Normal 0.00-0.03 [facility] Comment on above: Performed By: #### C BC #### [facility] [address] [place] [address] Dr. Deepak Greenfield IG % 0.0 % Normal 0.0-0.5 [facility] Comment on above: Performed By: #### C BC #### [facility] [address] [place] [address] Dr. Deepak Greenfield LYMPH # 3.3 103/ul Normal 1.2-3.8 [facility] Comment on above: Performed By: #### C BC #### [facility] [address] [place] [address] Dr. Deepak Greenfield Lymphocytes/100 WBC (Bld) 51.5 % Normal 20.5-60.0 [facility] Comment on above: Performed By: #### C BC #### [facility] [address] [place] [address] Dr. Deepak Greenfield MANUAL DIFF REQ NO Normal [facility] Comment on above: Performed By: #### C BC #### [facility] [address] [place] [address] Dr. Deepak Greenfield MCH (RBC) [Entitic mass] 32.2 pg Normal 25.9-34.0 [facility] Comment on above: Performed By: #### C BC #### [facility] [address] [place] [address] Dr. Deepak Greenfield MCHC (RBC) [Mass/Vol] 33.2 g/dL Normal 29.9-35.2 [facility] Comment on above: Performed By: #### C BC #### [facility] [address] [place] [address] Dr. Deepak Greenfield MCV (RBC) [Entitic vol] 96.9 fL Critically high 80.0-94.0 [facility] Comment on above: Performed By: #### C BC #### [facility] [address] [place] [address] Dr. Deepak Greenfield MONO # 0.6 103/ul Normal 0.3-0.8 [facility] Comment on above: Performed By: #### C BC #### [facility] [address] [place] [address] Dr. Deepak Greenfield Monocytes/100 WBC (Bld) 9.7 % Normal 1.7-12.0 [facility] Comment on above: Performed By: #### C BC #### [facility] [address] [place] [address] Dr. Deepak Greenfield NEUT # 2.4 103/ul Normal 1.4-6.5 [facility] Comment on above: Performed By: #### C BC #### [facility] [address] [place] [address] Dr. Deepak Greenfield Neutrophils/100 WBC (Bld) 36.9 % Critically low 43.0-75.0 [facility] Comment on above: Performed By: #### C BC #### [facility] [address] [place] [address] Dr. Deepak Greenfield Platelet mean volume (Bld) [Entitic vol] 10.2 fL Normal 9.5-13.5 [facility] Comment on above: Performed By: #### C BC #### [facility] [address] [place] [address] Dr. Deepak Greenfield PLT 248 103/ul Normal 150-450 [facility] Comment on above: Performed By: #### C BC #### [facility] [address] [place] [address] Dr. Deepak Greenfield RBC 3.82 106/ul Critically low 4.70-6.10 [facility] Comment on above: Performed By: #### C BC #### [facility] [address] [place] [address] Dr. Deepak Greenfield WBC 6.5 103/ul Normal 4.0-11.0 [facility] Comment on above: Performed By: #### C BC #### [facility] [address] [place] [address] Dr. Deepak Greenfield FERRITINon 04-22-2022 Ferritin [Mass/Vol] 152.0 ng/mL Normal 26.0-388.0 [facility] Comment on above: Performed By: #### M G, CMP #### [facility] [address] [place] [address] Dr. Deepak Greenfield IRONon 04-22-2022 Iron [Mass/Vol] 136.0 ug/dL Normal 65.0-175.0 [facility] Comment on above: Performed By: #### M Garett, CMP #### [facility] [address] [place] [address] Dr. Deepak Greenfield MAGNESIUMon 04-22-2022 Magnesium [Mass/Vol] 1.6 mg/dL Critically low 1.8-2.4 [facility] Comment on above: Performed By: #### I NFLUAB #### [facility] [address] [place] [address] Dr. Deepak Greenfield VITAMIN B12on 04-22-2022 Cobalamin (Vitamin B12) [Mass/Vol] 545.0 pg/mL Normal 193.0-986.0 [facility] Comment on above: Performed By: #### M G, CMP #### [facility] [address] [place] [address] Dr. Deepak Greenfield CBC AUTO DIFFon 03-19-2022 BASO # 0.0 103/ul Normal 0.0-0.1 [facility] Comment on above: Performed By: #### M G, CMP #### [facility] [address] [place] [address] Dr. Deepak Greenfield Basophils/100 WBC (Bld) 0.5 % Normal 0.2-2.0 [facility] Comment on above: Performed By: #### M G, CMP #### [facility] [address] [place] [address] Dr. Deepak Greenfield EO # 0.2 103/ul Normal 0.0-0.7 [facility] Comment on above: Performed By: #### M G, CMP #### [facility] [address] [place] [address] Dr. Deepak Greenfield Eosinophils/100 WBC (Bld) 2.0 % Normal 0.9-7.0 [facility] Comment on above: Performed By: #### M G, CMP #### [facility] [address] [place] [address] Dr. Deepak Greenfield Erythrocyte distribution width (RBC) [Ratio] 13.5 % Normal 11.0-15.0 [facility] Comment on above: Performed By: #### M G, CMP #### [facility] [address] [place] [address] Dr. Deepak Greenfield Hematocrit (Bld) [Volume fraction] 38.5 % Critically low 42.0-54.0 [facility] Comment on above: Performed By: #### M G, CMP #### [facility] [address] [place] [address] Dr. Deepak Greenfield Hemoglobin (Bld) [Mass/Vol] 12.6 g/dL Critically low 14.0-18.0 [facility] Comment on above: Performed By: #### M G, CMP #### [facility] [address] [place] [address] Dr. Deepak Greenfield IG # 0.02 10e3/ul Normal 0.00-0.03 [facility] Comment on above: Performed By: #### M G, CMP #### [facility] [address] [place] [address] Dr. Deepak Greenfield IG % 0.2 % Normal 0.0-0.5 [facility] Comment on above: Performed By: #### M G, CMP #### [facility] [address] [address] [address] Deepak Greenfield LYMPH # 3.1 103/ul Normal 1.2-3.8 [facility] Comment on above: Performed By: #### M G, CMP #### [facility] [address] [place] [address] Dr. Deepak Greenfield Lymphocytes/100 WBC (Bld) 36.2 % Normal 20.5-60.0 [facility] Comment on above: Performed By: #### M G, CMP #### [facility] [address] [place] [address] Dr. Deepak Greenfield MANUAL DIFF REQ NO Normal [facility] Comment on above: Performed By: #### M G, CMP #### [facility] [address] [place] [address] Dr. Deepak Greenfield MCH (RBC) [Entitic mass] 32.1 pg Normal 25.9-34.0 [facility] Comment on above: Performed By: #### M G, CMP #### [facility] [address] [place] [address] Dr. Deepak Greenfield MCHC (RBC) [Mass/Vol] 32.7 g/dL Normal 29.9-35.2 [facility] Comment on above: Performed By: #### M G, CMP #### [facility] [address] [place] [address] Dr. Deepak Greenfield MCV (RBC) [Entitic vol] 98.0 fL Critically high 80.0-94.0 [facility] Comment on above: Performed By: #### M G, CMP #### [facility] [address] [place] [address] Dr. Deepak Greenfield MONO # 0.9 103/ul Critically high 0.3-0.8 [facility] Comment on above: Performed By: #### M G, CMP #### [facility] [address] [address] [address] Deepak Greenfield Monocytes/100 WBC (Bld) 10.6 % Normal 1.7-12.0 [facility] Comment on above: Performed By: #### M G, CMP #### [facility] [address] [address] [address] Deepak Greenfield NEUT # 4.3 103/ul Normal 1.4-6.5 [facility] Comment on above: Performed By: #### M G, CMP #### [facility] [address] [place] [address] Dr. Deepak Greenfield Neutrophils/100 WBC (Bld) 50.5 % Normal 43.0-75.0 [facility] Comment on above: Performed By: #### M G, CMP #### [facility] [address] [place] [address] Dr. Deepak Greenfield Platelet mean volume (Bld) [Entitic vol] 9.9 fL Normal 9.5-13.5 [facility] Comment on above: Performed By: #### M G, CMP #### [facility] [address] [place] [address] Dr. Deepak Greenfield PLT 263 103/ul Normal 150-450 [facility] Comment on above: Performed By: #### M G, CMP #### [facility] [address] [place] [address] Dr. Deepak Greenfield RBC 3.93 106/ul Critically low 4.70-6.10 [facility] Comment on above: Performed By: #### M G, CMP #### [facility] [address] [address] [address] Deepak Greenfield WBC 8.6 103/ul Normal 4.0-11.0 [facility] Comment on above: Performed By: #### M G, CMP #### [facility] [address] [address] [address] Deepak Greenfield MAGNESIUMon 03-19-2022 Magnesium [Mass/Vol] 1.5 mg/dL Critically low 1.8-2.4 [facility] Comment on above: Performed By: #### M G, CMP #### [facility] [address] [address] [address] Deepak Greenfield PROF 14(COMP METB)on 022 Albumin [Mass/Vol] 3.4 g/dL Normal 3.4-5.0 [facility] Comment on above: Performed By: #### M G, CMP #### [facility] [address] [place] [address] Dr. Deepak Greenfield Albumin/Globulin [Mass ratio] 0.9 {ratio} Normal [facility] Comment on above: Performed By: #### M Garett, CMP #### [facility] [address] [place] [address] Dr. Deepak Greenfield ALP [Catalytic activity/Vol] 47 U/L Normal 46-116 [facility] Comment on above: Performed By: #### M G, CMP #### [facility] [address] [place] [address] Dr. Deepak Greenfield ALT [Catalytic activity/Vol] 48 U/L Normal 16-63 [facility] Comment on above: Performed By: #### M G, CMP #### [facility] [address] [place] [address] Dr. Deepak Greenfield Anion gap [Moles/Vol] 9.5 mmol/L Normal [facility] Comment on above: Performed By: #### M G, CMP #### [facility] [address] [place] [address] Dr. Deepak Greenfield AST [Catalytic activity/Vol] 30 U/L Normal 15-37 [facility] Comment on above: Performed By: #### M G, CMP #### [facility] [address] [place] [address] Dr. Deepak Greenfield Bilirubin [Mass/Vol] 0.2 mg/dL Normal 0.2-1.0 [facility] Comment on above: Performed By: #### M G, CMP #### [facility] [address] [address] [address] Deepak Greenfield Calcium [Mass/Vol] 8.7 mg/dL Normal 8.5-10.1 [facility] Comment on above: Performed By: #### M G, CMP #### [facility] [address] [address] [address] Deepak Greenfield Chloride [Moles/Vol] 105 mmol/L Normal 98-107 [facility] Comment on above: Performed By: #### M G, CMP #### [facility] [address] [address] [address] Deepak Greenfield CO2 [Moles/Vol] 32.6 mmol/L Critically high 21.0-32.0 [facility] Comment on above: Performed By: #### M G, CMP #### [facility] [address] [place] [address] Dr. Deepak Greenfield Creatinine [Mass/Vol] 0.70 mg/dL Normal 0.70-1.30 [facility] Comment on above: Performed By: #### M G, CMP #### [facility] [address] [place] [address] Dr. Deepak Greenfield EGFR-AF [place]ER >60 Normal >=60 [facility] Comment on above: Performed By: #### M G, CMP #### [facility] [address] [place] [address] Dr. Deepak Greenfield EGFR-NON AF [place]ER >60 Normal >=60 [facility] Comment on above: Performed By: #### M G, CMP #### [facility] [address] [address] [address] Deepak Greenfield Globulin (S) [Mass/Vol] 3.8 g/dL Normal [facility] Comment on above: Performed By: #### M G, CMP #### [facility] [address] [address] [address] Deepak Greenfield Glucose [Mass/Vol] 98 mg/dL Normal 74-106 [facility] Comment on above: Performed By: #### M G, CMP #### [facility] [address] [place] [address] Dr. Deepak Greenfield Potassium [Moles/Vol] 4.1 mmol/L Normal 3.5-5.1 [facility] Comment on above: Performed By: #### M Garett, CMP #### [facility] [address] [place] [address] Dr. Deepak Greenfield Protein [Mass/Vol] 7.2 g/dL Normal 6.4-8.2 [facility] Comment on above: Performed By: #### M G, CMP #### [facility] [address] [place] [address] Dr. Deepak Greenfield Sodium [Moles/Vol] 143 mmol/L Normal 136-145 [facility] Comment on above: Performed By: #### Karishma Garett, CMP #### [facility] [address] [place] [address] Dr. Deepak Greenfield Urea nitrogen [Mass/Vol] 10.0 mg/dL Normal 7.0-18.0 [facility] Comment on above: Performed By: #### Karishma Garett, CMP #### [facility] [address] [place] [address] Dr. Deepak Greenfield Urea nitrogen/Creatinine [Mass ratio] 14.3 mg/mg Normal [facility] Comment on above: Performed By: #### Karishma Garett, CMP #### [facility] [address] [place] [address] Dr. Deepak Greenfield VITAMIN D 25 OHon 03-19-2022 VIT D 25-OH 67.5 ng/mL Normal [facility] Comment on above: Performed By: #### Karishma Garett, CMP #### [facility] [address] [place] [address] Dr. Deepak Greenfield VIT D RANGES SEE BELOW Normal [facility] Comment on above: Result Comment: <20 ng/mL Vit D deficient 20 - <30 ng/mL Vit D insufficient 30 - 100 ng/mL Vit D sufficient >100 ng/mL Potential Toxicity Performed By: #### M G, CMP #### [facility] [address] [place] [address] Dr. Deepak Greenfield AMMONIAon 03-10-2022 Ammonia (P) [Moles/Vol] 36 umol/L Critically high [facility] Comment on above: Performed By: #### C BC #### [facility] [address] [place] [address] Dr. Deepak Greenfield DEPAKENE/ VALPROIC ACIDon DEPAKENE 93.5 ug/ml Normal 50.0-100.0 [facility] Comment on above: Performed By: #### B MP #### [facility] [address] [place] [address] Dr. Deepak Greenfield BNPon 01-24-2022 Natriuretic peptide B (Bld) [Mass/Vol] 183.0 pg/mL Normal <=450.0 [facility] Comment on above: Performed By: #### M G, CMP #### [facility] [address] [place] [address] Dr. Deepak Greenfield CBC AUTO DIFFon 01-24-2022 BASO # 0.0 103/ul Normal 0.0-0.1 [facility] Comment on above: Performed By: #### C VDTBH #### [facility] [address] [place] [address] Dr. Deepak Greenfield Basophils/100 WBC (Bld) 0.3 % Normal 0.2-2.0 [facility] Comment on above: Performed By: #### C VDTBH #### [facility] [address] [place] [address] Dr. Deepak Greenfield EO # 0.1 103/ul Normal 0.0-0.7 [facility] Comment on above: Performed By: #### C VDTBH #### [facility] [address] [place] [address] Dr. Deepak Greenfield Eosinophils/100 WBC (Bld) 0.4 % Critically low 0.9-7.0 [facility] Comment on above: Performed By: #### C VDTBH #### [facility] [address] [place] [address] Dr. Deepak Greenfield Erythrocyte distribution width (RBC) [Ratio] 13.6 % Normal 11.0-15.0 [facility] Comment on above: Performed By: #### C VDTBH #### [facility] [address] [place] [address] Dr. Deepak Greenfield Hematocrit (Bld) [Volume fraction] 39.3 % Critically low 42.0-54.0 [facility] Comment on above: Performed By: #### C VDTBH #### [facility] [address] [place] [address] Dr. Deepak Greenfield Hemoglobin (Bld) [Mass/Vol] 12.6 g/dL Critically low 14.0-18.0 [facility] Comment on above: Performed By: #### C VDTBH #### [facility] [address] [place] [address] Dr. Deepak Greenfield IG # 0.04 10e3/ul Critically high 0.00-0.03 [facility] Comment on above: Performed By: #### C VDTBH #### [facility] [address] [place] [address] Dr. Deepak Greenfield IG % 0.3 % Normal 0.0-0.5 [facility] Comment on above: Performed By: #### C VDTBH #### [facility] [address] [place] [address] Dr. Deepak Greenfield LYMPH # 2.4 103/ul Normal 1.2-3.8 [facility] Comment on above: Performed By: #### C VDTBH #### [facility] [address] [place] [address] Dr. Deepak Greenfield Lymphocytes/100 WBC (Bld) 16.6 % Critically low 20.5-60.0 [facility] Comment on above: Performed By: #### C VDTBH #### [facility] [address] [place] [address] Dr. Deepak Greenfield MANUAL DIFF REQ NO Normal [facility] [place] [facility] Comment on above: Performed By: #### C VDTBH #### [facility] [address] [place] [address] Dr. Deepak Greenfield MCH (RBC) [Entitic mass] 32.0 pg Normal 25.9-34.0 [facility] Comment on above: Performed By: #### C VDTBH #### [facility] [address] [place] [address] Dr. Deepak Greenfield MCHC (RBC) [Mass/Vol] 32.1 g/dL Normal 29.9-35.2 [facility] Comment on above: Performed By: #### C VDTBH #### [facility] [address] [place] [address] Dr. Deepak Greenfield MCV (RBC) [Entitic vol] 99.7 fL Critically high 80.0-94.0 [facility] Comment on above: Performed By: #### C VDTBH #### [facility] [address] [place] [address] Dr. Deepak Greenfield MONO # 1.4 103/ul Critically high 0.3-0.8 [facility] Comment on above: Performed By: #### C VDTBH #### [facility] [address] [place] [address] Dr. Deepak Greenfield Monocytes/100 WBC (Bld) 9.8 % Normal 1.7-12.0 [facility] Comment on above: Performed By: #### C VDTBH #### [facility] [address] [place] [address] Dr. Deepak Greenfield NEUT # 10.7 103/ul Critically high 1.4-6.5 [facility] Comment on above: Performed By: #### C VDTBH #### [facility] [address] [place] [address] Dr. Deepak Greenfield Neutrophils/100 WBC (Bld) 72.6 % Normal 43.0-75.0 [facility] Comment on above: Performed By: #### C VDTBH #### [facility] [address] [place] [address] Dr. Deepak Greenfield Platelet mean volume (Bld) [Entitic vol] 10.4 fL Normal 9.5-13.5 [facility] Comment on above: Performed By: #### C VDTBH #### [facility] [address] [place] [address] Dr. Deepak Greenfield PLT 280 103/ul Normal 150-450 [facility] Comment on above: Performed By: #### C VDTBH #### [facility] [address] [place] [address] Dr. Deepak Greenfield RBC 3.94 106/ul Critically low 4.70-6.10 [facility] Comment on above: Performed By: #### C VDTBH #### [facility] [address] [place] [address] Dr. Deepak Greenfield WBC 14.7 103/ul Critically high 4.0-11.0 [facility] Comment on above: Performed By: #### C VDTBH #### [facility] [address] [place] [address] Dr. Deepak Greenfield CULTURE BLOODon 01-24-2022 Microscopic examination of blood, culture Culture Observations: No growth at 5 days. Normal [facility] Comment on above: Performed By: #### C BC #### [facility] [address] [place] [address] Dr. Deepak Greenfield Microscopic examination of blood, culture Culture Observations: No growth at 5 days. Normal [facility] Comment on above: Performed By: #### C BC #### [facility] [address] [place] [address] Dr. Deepak Greenfield Covid-19 PCR ([facility])on SARS-CoV-2 (COVID-19) RNA CINDY+probe Ql (Unsp spec) Not detected Normal NOT DETECTED [facility] Comment on above: Result Comment: [...] for this test is supported by the [place] of Health and Human Service's declaration that [...] used). Performed By: #### I NFLUAB #### [facility] [address] [place] [address] Dr. Deepak Greenfield LACTATE/LACTIC ACIDon 2021 Lactate [Moles/Vol] 1.7 mmol/L Normal 0.4-1.9 [facility] Comment on above: Performed By: #### M G, CMP #### [facility] [address] [place] [address] Dr. Deepak Greenfield PROF 14(COMP METB)on 022 Albumin [Mass/Vol] 3.2 g/dL Critically low 3.4-5.0 [facility] Comment on above: Performed By: #### M G, CMP #### [facility] [address] [place] [address] Dr. Deepak Greenfield Albumin/Globulin [Mass ratio] 0.7 {ratio} Normal [facility] Comment on above: Performed By: #### M G, CMP #### [facility] [address] [place] [address] Dr. Deepak Greenfield ALP [Catalytic activity/Vol] 49 U/L Normal 46-116 [facility] Comment on above: Performed By: #### Karishma G, CMP #### [facility] [address] [place] [address] Dr. Deepak Greenfield ALT [Catalytic activity/Vol] 41 U/L Normal 16-63 [facility] Comment on above: Performed By: #### M G, CMP #### [facility] [address] [place] [address] Dr. Deepak Greenfield Anion gap [Moles/Vol] 11.1 mmol/L Normal [facility] Comment on above: Performed By: #### M G, CMP #### [facility] [address] [place] [address] Dr. Deepak Greenfield AST [Catalytic activity/Vol] 29 U/L Normal 15-37 [facility] Comment on above: Performed By: #### M G, CMP #### [facility] [address] [place] [address] Dr. Deepak Greenfield Bilirubin [Mass/Vol] 0.5 mg/dL Normal 0.2-1.0 [facility] Comment on above: Performed By: #### M G, CMP #### [facility] [address] [place] [address] Dr. Deepak Greenfield Calcium [Mass/Vol] 9.1 mg/dL Normal 8.5-10.1 [facility] Comment on above: Performed By: #### M G, CMP #### [facility] [address] [place] [address] Dr. Deepak Greenfield Chloride [Moles/Vol] 108 mmol/L Critically high 98-107 [facility] Comment on above: Performed By: #### M G, CMP #### [facility] [address] [place] [address] Dr. Deepak Greenfield CO2 [Moles/Vol] 25.7 mmol/L Normal 21.0-32.0 [facility] Comment on above: Performed By: #### M G, CMP #### [facility] [address] [place] [address] Dr. Deepak Greenfield Creatinine [Mass/Vol] 0.89 mg/dL Normal 0.70-1.30 [facility] Comment on above: Performed By: #### M G, CMP #### [facility] [address] [place] [address] Dr. Deepak Greenfield EGFR-AF [place] >60 Normal >=60 [facility] Comment on above: Performed By: #### M G, CMP #### [facility] [address] [place] [address] Dr. Deepak Greenfield EGFR-NON AF [place] >60 Normal >=60 [facility] Comment on above: Performed By: #### M G, CMP #### [facility] [address] [place] [address] Dr. Deepak Greenfield Globulin (S) [Mass/Vol] 4.5 g/dL Normal [facility] Comment on above: Performed By: #### M G, CMP #### [facility] [address] [address] [address] Deepak Greenfield Glucose [Mass/Vol] 178 mg/dL Critically high 74-[address] [facility] Comment on above: Performed By: #### M G, CMP #### [facility] [address] [place] [address] Dr. Deepak Greenfield Potassium [Moles/Vol] 3.8 mmol/L Normal 3.5-5.1 [facility] Comment on above: Performed By: #### M G, CMP #### [facility] [address] [place] [address] Dr. Deepak Greenfield Protein [Mass/Vol] 7.7 g/dL Normal 6.4-8.2 [facility] Comment on above: Performed By: #### M G, CMP #### [facility] [address] [place] [address] Dr. Deepak Greenfield Sodium [Moles/Vol] 141 mmol/L Normal 136-145 [facility] Comment on above: Performed By: #### M G, CMP #### [facility] [address] [place] [address] Dr. Deepak Greenfield Urea nitrogen [Mass/Vol] 16.0 mg/dL Normal 7.0-18.0 [facility] Comment on above: Performed By: #### M G, CMP #### [facility] [address] [place] [address] Dr. Deepak Greenfield Urea nitrogen/Creatinine [Mass ratio] 18.0 mg/mg Normal [facility] Comment on above: Performed By: #### M G, CMP #### [facility] [address] [place] [address] Dr. Deepak Greenfield TROPONIN, HIGH SENSITIVITYon 01-24-2022 HSTROP 6.4 pg/mL Normal 4.0-76.1 [facility] Comment on above: Result Comment: CUT- OFF POINTS HAVE BEEN ESTABLISHED BASED ON THE FOURTH UNIVERSAL DEFINITIONS OF MYOCARDIAL INFARCTION. THE UPPER REFERENCE LIMIT (URL) OF TROPONIN, DEFINED THE 99TH PERCENTILE OF cTnI DISTRIBUTION IN A REFERENCE POPULATION, HAS BEEN CONFIRMED THE DECISION THRESHOLD FOR IN DIAGNOSIS. Performed By: #### M G, CMP #### [facility] [address] [place] [address] Dr. Deepak Greenfield XR CHEST 1 Von [...] ANICETO CROCKER Date: 2022-01-24 15:28 Normal [facility] UA RANDOM W/MICROSCOPICon BACTERIA NONE SEEN Normal NONE SEEN [facility] Comment on above: Performed By: #### C VDTBH #### [facility] [address] [place] [address] Dr. Deepak Greenfield Bilirubin Ql (U) Negative Normal NEGATIVE [facility] Comment on above: Performed By: #### C VDTBH #### [facility] [address] [place] [address] Dr. Deepak Greenfield CAST NONE SEEN Normal NONE SEEN [facility] Comment on above: Performed By: #### C VDTBH #### [facility] [address] [place] [address] Dr. Deepak Greenfield Clarity (U) CLEAR Normal CLEAR [facility] Comment on above: Performed By: #### C VDTBH #### [facility] [address] [place] [address] Dr. Deepak Greenfield Color (U) YELLOW Normal YELLOW [facility] Comment on above: Performed By: #### C VDTBH #### [facility] [address] [place] [address] Dr. Deepak Greenfield Crystals LM Nom (Urine sed) NONE SEEN Normal NONE SEEN [facility] Comment on above: Performed By: #### C VDTBH #### [facility] [address] [place] [address] Dr. Deepak Greenfield Epithelial cells LM Ql (Urine sed) RARE Normal NONE SEEN /RARE [facility] Comment on above: Performed By: #### C VDTBH #### [facility] [address] [address] [address] Deepak Greenfield Glucose Ql (U) Negative Normal NEGATIVE [facility] Comment on above: Performed By: #### C VDTBH #### [facility] [address] [place] [address] Dr. Deepak Greenfield Hemoglobin Ql (U) Negative Normal NEGATIVE [facility] Comment on above: Performed By: #### C VDTBH #### [facility] [address] [address] [address] Deepak Greenfield Ketones Ql (U) 15 mg/dl Abnormal NEGATIVE [facility] Comment on above: Performed By: #### C VDTBH #### [facility] [address] [place] [address] Dr. Deepak Greenfield LEUKOCYTES Negative Normal NEGATIVE [facility] Comment on above: Performed By: #### C VDTBH #### [facility] [address] [place] [address] Dr. Deepak Greenfield MUCOUS NONE SEEN Normal NONE SEEN [facility] Comment on above: Performed By: #### C VDTBH #### [facility] [address] [place] [address] Dr. Deepak Greenfield Nitrite Ql (U) Negative Normal NEGATIVE [facility] Comment on above: Performed By: #### C VDTBH #### [facility] [address] [place] [address] Dr. Deepak Greenfield pH (U) 6.0 [pH] Normal 5-9 [facility] Comment on above: Performed By: #### C VDTBH #### [facility] [address] [place] [address] Dr. Deepak Greenfield RBC 0-2 Normal 0-2 [facility] Comment on above: Performed By: #### C VDTBH #### [facility] [address] [place] [address] Dr. Deepak Greenfield SPEC GRAVITY 1.020 Normal 1.005-<=1.025 [facility] Comment on above: Performed By: #### C VDTBH #### [facility] [address] [address] [address] Deepak Greenfield UA PROTEIN Negative Normal NEGATIVE/ TRACE [facility] Comment on above: Performed By: #### C VDTBH #### [facility] [address] [address] [address] Deepak Greenfield Urobilinogen Qn (U) 0.2 {Ottoniel'U}/dL Normal 0.2 - 1. 0 [facility] Comment on above: Performed By: #### C VDTBH #### [facility] [address] [place] [address] Dr. Deepak Greenfield WBC NONE SEEN Normal NONE SEEN [facility] Comment on above: Performed By: #### C VDTBH #### [facility] [address] [place] [address] Dr. Deepak Greenfield ALBUMINon 01-12-2022 Albumin [Mass/Vol] 3.4 g/dL Normal 3.4-5.0 [facility] Comment on above: Performed By: #### C VDTBH #### [facility] [address] [place] [address] Dr. Deepak Greenfield ALKALINE PHOSPHAon ALP [Catalytic activity/Vol] 46 U/L Normal 46-116 [facility] Comment on above: Performed By: #### C VDTBH #### [facility] [address] [place] [address] Dr. Deepak Greenfield AMMONIAon 01-12-2022 Ammonia (P) [Moles/Vol] 93 umol/L Critically high 11-32 [facility] Comment on above: Performed By: #### I NFLUAB #### [facility] [address] [place] [address] Dr. Deepak Greenfield BILIRUBIN CONJUGATED (DIRECT )on 01-12-2022 BILI, CONJUGATED 0.1 mg/dL Normal 0.0-0.2 [facility] Comment on above: Performed By: #### C VDTBH #### [facility] [address] [place] [address] Dr. Deepak Greenfield BILIRUBIN TOTALon 01-12-2022 Bilirubin [Mass/Vol] 0.4 mg/dL Normal 0.2-1.0 [facility] Comment on above: Performed By: #### C VDTB #### [facility] [address] [place] [address] Dr. Deepak Greenfield CBC AUTO DIFFon 01-12-2022 BASO # 0.0 103/ul Normal 0.0-0.1 [facility] Comment on above: Performed By: #### M G, CMP #### [facility] [address] [place] [address] Dr. Deepak Greenfield Basophils/100 WBC (Bld) 0.3 % Normal 0.2-2.0 [facility] Comment on above: Performed By: #### M G, CMP #### [facility] [address] [place] [address] Dr. Deepak Greenfield EO # 0.1 103/ul Normal 0.0-0.7 [facility] Comment on above: Performed By: #### M G, CMP #### [facility] [address] [place] [address] Dr. Deepak Greenfield Eosinophils/100 WBC (Bld) 1.3 % Normal 0.9-7.0 [facility] Comment on above: Performed By: #### M G, CMP #### [facility] [address] [place] [address] Dr. Deepak Greenfield Erythrocyte distribution width (RBC) [Ratio] 14.2 % Normal 11.0-15.0 [facility] Comment on above: Performed By: #### M G, CMP #### [facility] [address] [place] [address] Dr. Deepak Greenfield Hematocrit (Bld) [Volume fraction] 40.4 % Critically low 42.0-54.0 [facility] Comment on above: Performed By: #### M G, CMP #### [facility] [address] [place] [address] Dr. Deepak Greenfield Hemoglobin (Bld) [Mass/Vol] 13.1 g/dL Critically low 14.0-18.0 [facility] Comment on above: Performed By: #### M G, CMP #### [facility] [address] [address] [address] Deepak Greenfield IG # 0.01 10e3/ul Normal 0.00-0.03 [facility] Comment on above: Performed By: #### M G, CMP #### [facility] [address] [address] [address] Deepak Greenfield IG % 0.1 % Normal 0.0-0.5 [facility] Comment on above: Performed By: #### M G, CMP #### [facility] [address] [address] [address] Deepak Greenfield LYMPH # 3.3 103/ul Normal 1.2-3.8 [facility] Comment on above: Performed By: #### M G, CMP #### [facility] [address] [place] [address] Dr. Deepak Greenfield Lymphocytes/100 WBC (Bld) 42.3 % Normal 20.5-60.0 [facility] Comment on above: Performed By: #### M G, CMP #### [facility] [address] [place] [address] Dr. Deepak Greenfield MANUAL DIFF REQ NO Normal [facility] Comment on above: Performed By: #### M G, CMP #### [facility] [address] [address] [address] Deepak Greenfield MCH (RBC) [Entitic mass] 32.4 pg Normal 25.9-34.0 [facility] Comment on above: Performed By: #### M G, CMP #### [facility] [address] [place] [address] Dr. Deepak Greenfield MCHC (RBC) [Mass/Vol] 32.4 g/dL Normal 29.9-35.2 [facility] Comment on above: Performed By: #### M G, CMP #### [facility] [address] [address] [address] Deepak Greenfield MCV (RBC) [Entitic vol] 100.0 fL Critically high 80.0-94.0 [facility] Comment on above: Performed By: #### M G, CMP #### [facility] [address] [address] [address] Deepak Greenfield MONO # 0.6 103/ul Normal 0.3-0.8 [facility] Comment on above: Performed By: #### M G, CMP #### [facility] [address] [address] [address] Deepak Greenfield Monocytes/100 WBC (Bld) 7.6 % Normal 1.7-12.0 [facility] Comment on above: Performed By: #### M G, CMP #### [facility] [address] [place] [address] Dr. Deepak Greenfield NEUT # 3.8 103/ul Normal 1.4-6.5 [facility] Comment on above: Performed By: #### M G, CMP #### [facility] [address] [place] [address] Dr. Deepak Greenfield Neutrophils/100 WBC (Bld) 48.4 % Normal 43.0-75.0 [facility] Comment on above: Performed By: #### M G, CMP #### [facility] [address] [place] [address] Dr. Deepak Greenfield Platelet mean volume (Bld) [Entitic vol] 9.6 fL Normal 9.5-13.5 [facility] Comment on above: Performed By: #### M G, CMP #### [facility] [address] [place] [address] Dr. Deepak Greenfield PLT 315 103/ul Normal 150-450 [facility] Comment on above: Performed By: #### M G, CMP #### [facility] [address] [address] [address] Deepak Greenfield RBC 4.04 106/ul Critically low 4.70-6.10 [facility] Comment on above: Performed By: #### M G, CMP #### [facility] [address] [place] [address] Dr. Deepak Greenfield WBC 7.9 103/ul Normal 4.0-11.0 [facility] Comment on above: Performed By: #### M G, CMP #### [facility] [address] [place] [address] Dr. Deepak Greenfield DEPAKENE/VALPROICon 01-13-20 DEPAKENE 89.7 ug/ml Normal 50.0-100.0 [facility] Comment on above: Performed By: #### I NFLUAB #### [facility] [address] [place] [address] Dr. Deepak Greenfield PROF CHEM 8 (BAS METB)on Anion gap [Moles/Vol] 12.9 mmol/L Normal [facility] Comment on above: Performed By: #### I NFLUAB #### [facility] [address] [place] [address] Dr. Deepak Greenfield Calcium [Mass/Vol] 8.8 mg/dL Normal 8.5-10.1 [facility] Comment on above: Performed By: #### I NFLUAB #### [facility] [address] [place] [address] Dr. Deepak Greenfield Chloride [Moles/Vol] 103 mmol/L Normal 98-107 [facility] Comment on above: Performed By: #### I NFLUAB #### [facility] [address] [place] [address] Dr. Deepak Greenfield CO2 [Moles/Vol] 28.1 mmol/L Normal 21.0-32.0 [facility] Comment on above: Performed By: #### I NFLUAB #### [facility] [address] [place] [address] Dr. Deepak Greenfield Creatinine [Mass/Vol] 0.58 mg/dL Critically low 0.70-1.30 [facility] Comment on above: Performed By: #### I NFLUAB #### [facility] [address] [place] [address] Dr. Deepak Greenfield EGFR-AF [place] >60 Normal >=60 [facility] Comment on above: Performed By: #### I NFLUAB #### [facility] [address] [place] [address] Dr. Deepak Greenfield EGFR-NON AF [place] >60 Normal >=60 [facility] Comment on above: Performed By: #### I NFLUAB #### [facility] [address] [place] [address] Dr. Deepak Greenfield Glucose [Mass/Vol] 117 mg/dL Critically high 74-106 [facility] Comment on above: Performed By: #### I NFLUAB #### [facility] [address] [place] [address] Dr. Deepak Greenfield Potassium [Moles/Vol] 4.0 mmol/L Normal 3.5-5.1 [facility] Comment on above: Performed By: #### I NFLUAB #### [facility] [address] [place] [address] Dr. Deepak Greenfield Sodium [Moles/Vol] 140 mmol/L Normal 136-145 [facility] Comment on above: Performed By: #### I NFLUAB #### [facility] [address] [place] [address] Dr. Deepak Greenfield Urea nitrogen [Mass/Vol] 7.0 mg/dL Normal 7.0-18.0 [facility] Comment on above: Performed By: #### I NFLUAB #### [facility] [address] [place] [address] Dr. Deepak Greenfield Urea nitrogen/Creatinine [Mass ratio] 12.1 mg/mg Normal [facility] Comment on above: Performed By: #### I NFLUAB #### [facility] [address] [place] [address] Dr. Deepak Madrigal 01-12-2022 AST [Catalytic activity/Vol] 31 U/L Normal 15-37 [facility] Comment on above: Performed By: #### C VDTBH #### [facility] [address] [place] [address] Dr. Deepak CRUZPTon 01-12-2022 ALT [Catalytic activity/Vol] 48 U/L Normal 16-63 [facility] Comment on above: Performed By: #### C VDTBH #### [facility] [address] [place], [place] [address] Dr. Deepak Greenfield T PROTEIN SERUMon 01-12-2022 Protein [Mass/Vol] 7.3 g/dL Normal 6.4-8.2 [facility] Comment on above: Performed By: #### B #### [facility] [address] [place], [place] [address] Dr. Deepak Greenfield XR CHEST 2 Von [...] by: ANICETO CROCKER Date: 2022-01-06 16:15 Normal [facility] XR DEXA BONE DENSITYon 11-20 XR [...] by: MARGARITO DAVIES Date: 2021-11-20 11:42 Normal [facility] US SCROTUMon 11-14-2021 US SCROTUM EXAMINATION: [...] KRISTIAN BILLINGS Date: 2021-11-14 07:10 Normal [facility] AMMONIAon 10-31-2021 Ammonia (P) [Moles/Vol] 88 umol/L Critically high [facility] Comment on above: Performed By: #### M G, CMP #### [facility] [address] [address] [address] Deepak Greenfield AMMONIAon 10-30-2021 Ammonia (P) [Moles/Vol] 103 umol/L Critically high [facility] Comment on above: Result Comment: SPEC IMEN SLIGHTLY HEMOLYZED MAY AFFECT AMM RESULT Performed By: #### I NFLUAB #### [facility] [address] [address] [address] Deepak Greenfield WOUND CULTUREon 10-23-2021 Bacteria identified Aer cx Nom (Unsp spec) Final report Normal [facility] Comment on above: Performed By: #### C XWND #### [facility] [address] [place] [address] Dr. Deepak Greenfield Result 1 Comment Normal [facility] Comment on above: Result Comment: No g rowth in 36 - 48 hours. Performed By: #### C XWND #### [facility] [address] [place] [address] Dr. Deepak Greenfield WOUND CULTUREon 10-02-2021 Bacteria identified Aer cx Nom (Unsp spec) Final report Normal [facility] Comment on above: Performed By: #### A MM #### [facility] [address] [place] [address] Dr. Deepak Greenfield Result 1 Mixed skin omid Normal [facility] Comment on above: Performed By: #### A MM #### [facility] [address] [place] [address] Dr. Deepak Greenfield AMYLASEon 09-22-2021 Amylase [Catalytic activity/Vol] 24 U/L Critically low 25-115 [facility] Comment on above: Performed By: #### C BC #### [facility] [address] [place] [address] Dr. Deepak Greenfield CBC AUTO DIFFon 09-22-2021 BASO # 0.0 103/ul Normal 0.0-0.1 [facility] Comment on above: Performed By: #### C VDTBH #### [facility] [address] [place] [address] Dr. Deepak Greenfield Basophils/100 WBC (Bld) 0.5 % Normal 0.2-2.0 [facility] Comment on above: Performed By: #### C VDTBH #### [facility] [address] [place] [address] Dr. Deepak Greenfield EO # 0.1 103/ul Normal 0.0-0.7 [facility] Comment on above: Performed By: #### C VDTBH #### [facility] [address] [place] [address] Dr. Deepak Greenfield Eosinophils/100 WBC (Bld) 1.3 % Normal 0.9-7.0 [facility] Comment on above: Performed By: #### C VDTBH #### [facility] [address] [place] [address] Dr. Deepak Greenfield Erythrocyte distribution width (RBC) [Ratio] 13.9 % Normal 11.0-15.0 [facility] Comment on above: Performed By: #### C VDTBH #### [facility] [address] [address] [address] Deepak Greenfield Hematocrit (Bld) [Volume fraction] 40.0 % Critically low 42.0-54.0 [facility] Comment on above: Performed By: #### C VDTBH #### [facility] [address] [place] [address] Dr. Deepak Greenfield Hemoglobin (Bld) [Mass/Vol] 13.0 g/dL Critically low 14.0-18.0 [facility] Comment on above: Performed By: #### C VDTBH #### [facility] [address] [place] [address] Dr. Deepak Greenfield IG # 0.01 10e3/ul Normal 0.00-0.03 [facility] Comment on above: Performed By: #### C VDTBH #### [facility] [address] [place] [address] Dr. Deepak Greenfield IG % 0.2 % Normal 0.0-0.5 [facility] Comment on above: Performed By: #### C VDTBH #### [facility] [address] [place] [address] Dr. Deepak Greenfield LYMPH # 3.0 103/ul Normal 1.2-3.8 [facility] Comment on above: Performed By: #### C VDTBH #### [facility] [address] [place] [address] Dr. Deepak Greenfield Lymphocytes/100 WBC (Bld) 47.9 % Normal 20.5-60.0 [facility] Comment on above: Performed By: #### C VDTBH #### [facility] [address] [place] [address] Dr. Deepak Greenfield MANUAL DIFF REQ NO Normal [facility] Comment on above: Performed By: #### C VDTBH #### [facility] [address] [place] [address] Dr. Deepak Greenfield MCH (RBC) [Entitic mass] 32.9 pg Normal 25.9-34.0 [facility] Comment on above: Performed By: #### C VDTBH #### [facility] [address] [place] [address] Dr. Deepak Greenfield MCHC (RBC) [Mass/Vol] 32.5 g/dL Normal 29.9-35.2 [facility] Comment on above: Performed By: #### C VDTBH #### [facility] [address] [place] [address] Dr. Deepak Greenfield MCV (RBC) [Entitic vol] 101.3 fL Critically high 80.0-94.0 [facility] Comment on above: Performed By: #### C VDTBH #### [facility] [address] [place] [address] Dr. Deepak Greenfield MONO # 0.7 103/ul Normal 0.3-0.8 [facility] Comment on above: Performed By: #### C VDTBH #### [facility] [address] [place] [address] Dr. Deepak Greenfield Monocytes/100 WBC (Bld) 10.3 % Normal 1.7-12.0 [facility] Comment on above: Performed By: #### C VDTBH #### [facility] [address] [place] [address] Dr. Deepak Greenfield NEUT # 2.5 103/ul Normal 1.4-6.5 [facility] Comment on above: Performed By: #### C VDTBH #### [facility] [address] [place] [address] Dr. Deepak Greenfield Neutrophils/100 WBC (Bld) 39.8 % Critically low 43.0-75.0 [facility] Comment on above: Performed By: #### C VDTBH #### [facility] [address] [place] [address] Dr. Deepak Greenfield Platelet mean volume (Bld) [Entitic vol] 10.1 fL Normal 9.5-13.5 [facility] Comment on above: Performed By: #### C VDTBH #### [facility] [address] [place] [address] Dr. Deepak Greenfield PLT 311 103/ul Normal 150-450 [facility] Comment on above: Performed By: #### C VDTBH #### [facility] [address] [place], [place] [address] Dr. Deepak Greenfield RBC 3.95 106/ul Critically low 4.70-6.10 [facility] Comment on above: Performed By: #### C VDTBH #### [facility] [address] [place], [place] [address] Dr. Deepak Greenfield WBC 6.3 103/ul Normal 4.0-11.0 [facility] Comment on above: Performed By: #### C VDTBH #### [facility] [address] [place], [place] [address] ABD/PELV W CONon [...] by: JAMIE ALICIA Date: 2021-09-22 02:[address] [facility] [address] HEAD WO CONon 09-22-2021 [...] by: BRITTON FONTENOT Date: 2021-09-22 01:13 Normal [facility] LIPASEon 09-22-2021 Lipase [Catalytic activity/Vol] 28.0 U/L Critically low 73.0-393.0 [facility] Comment on above: Performed By: #### C BC #### [facility] [address] [place] [address] Dr. Deepak Greenfield PROF 14(COMP METB)on 022 Albumin [Mass/Vol] 3.3 g/dL Critically low 3.4-5.0 [facility] Comment on above: Performed By: #### B MP #### [facility] [address] [place] [address] Dr. Deepak Greenfield Albumin/Globulin [Mass ratio] 0.9 {ratio} Normal [facility] Comment on above: Performed By: #### B MP #### [facility] [address] [place] [address] Dr. Deepak Greenfield ALP [Catalytic activity/Vol] 38 U/L Critically low 46-116 [facility] Comment on above: Performed By: #### B MP #### [facility] [address] [address] [address] Deepak Greenfield ALT [Catalytic activity/Vol] 91 U/L Critically high 16-63 [facility] Comment on above: Performed By: #### B MP #### [facility] [address] [address] [address] Deepak Greenfield Anion gap [Moles/Vol] 10.2 mmol/L Normal [facility] Comment on above: Performed By: #### B MP #### [facility] [address] [address] [address] Deepak Greenfield AST [Catalytic activity/Vol] 50 U/L Critically high 15-37 [facility] Comment on above: Performed By: #### B MP #### [facility] [address] [place] [address] Dr. Deepak Greenfield Bilirubin [Mass/Vol] 0.3 mg/dL Normal 0.2-1.0 [facility] Comment on above: Performed By: #### B MP #### [facility] [address] [place] [address] Dr. Deepak Greenfield Calcium [Mass/Vol] 8.6 mg/dL Normal 8.5-10.1 [facility] Comment on above: Performed By: #### B MP #### [facility] [address] [address] [address] Deepak Greenfield Chloride [Moles/Vol] 106 mmol/L Normal 98-107 [facility] Comment on above: Performed By: #### B MP #### [facility] [address] [address] [address] Deepak Greenfield CO2 [Moles/Vol] 29.9 mmol/L Normal 21.0-32.0 [facility] Comment on above: Performed By: #### B MP #### [facility] [address] [address] [address] Deepak Greenfield Creatinine [Mass/Vol] 0.65 mg/dL Critically low 0.70-1.30 [facility] Comment on above: Performed By: #### B MP #### [facility] [address] [address] [address] Deepak Greenfield EGFR-AF [place]LANDER >60 Normal >=60 [facility] Comment on above: Performed By: #### B MP #### [facility] [address] [address] [address] Deepak Greenfield EGFR-NON AF [place]ER >60 Normal >=60 [facility] Comment on above: Performed By: #### B MP #### [facility] [address] [address] [address] Deepak Greenfield Globulin (S) [Mass/Vol] 3.7 g/dL Normal [facility] Comment on above: Performed By: #### B MP #### [facility] [address] [place] [address] Dr. Deepak Greenfield Glucose [Mass/Vol] 105 mg/dL Normal 74-106 [facility] Comment on above: Performed By: #### B MP #### [facility] [address] [address] [address] Deepak Greenfield Potassium [Moles/Vol] 4.1 mmol/L Normal 3.5-5.1 [facility] Comment on above: Performed By: #### B MP #### [facility] [address] [place] [address] Dr. Deepak Greenfield Protein [Mass/Vol] 7.0 g/dL Normal 6.4-8.2 [facility] Comment on above: Performed By: #### B MP #### [facility] [address] [address] [address] Deepak Greenfield Sodium [Moles/Vol] 142 mmol/L Normal 136-145 [facility] Comment on above: Performed By: #### B MP #### [facility] [address] [place] [address] Dr. Deepak Greenfield Urea nitrogen [Mass/Vol] 13.0 mg/dL Normal 7.0-18.0 [facility] Comment on above: Performed By: #### B MP #### [facility] [address] [place] [address] Dr. Deepak Greenfield Urea nitrogen/Creatinine [Mass ratio] 20.0 mg/mg Normal [facility] Comment on above: Performed By: #### B MP #### [facility] [address] [place], [place] [id number] Dr. Deepak Greenfield Vital Signs Date Time Vital Sign Value Performing Clinician Facility 06-12-2024 08:27-0500 Body temperature 98.4 [degF] Ap Al-Israelhni DDS Work Phone: [facility] 06-12-2024 08:27-0500 Diastolic blood pressure 84 mm[Hg] Ap Al-Israelhni DDS Work Phone: [facility] 06-12-2024 08:27-0500 Heart rate 84 /min Ap Al-Israelhni DDS Work Phone: [facility] 06-12-2024 08:27-0500 Respiratory rate 16 /min Ap Al-Israelhni DDS Work Phone: [facility] 06-12-2024 08:27-0500 SaO2% (BldA) [Mass fraction] 96 % Ap Al-Israelhni DDS Work Phone: [facility] 06-12-2024 08:27-0500 Systolic blood pressure 158 mm[Hg] Ap Al-Israelhni DDS Work Phone: [facility] 06-12-2024 07:02-0500 Body weight 63.05 kg Ap Al-Israelhni DDS Work Phone: [facility] 06-05-2024 21:37-0500 Heart rate 122 /min [facility] 06-02-2024 13:35-0500 Body temperature 98.91 [degF] Pat [facility] 06-02-2024 13:35-0500 Body weight 63.05 kg Pat An[facility] 06-02-2024 13:35-0500 Diastolic blood pressure 73 mm[Hg] Pat An[facility] 06-02-2024 13:35-0500 Heart rate 115 /min Pat Anesthesia [facility] 06-02-2024 13:35-0500 Respiratory rate 16 /min Pat Anesthesia [facility] 06-02-2024 13:35-0500 Systolic blood pressure 154 mm[Hg] Pat Anesthesia [facility] 06-02-2024 13:25-0500 Body temperature 98.91 [degF] Boyd Harry MD Work Phone: [facility] 06-02-2024 13:25-0500 Body weight 63.05 kg Boyd Harry MD Work Phone: [facility] 06-02-2024 13:25-0500 Diastolic blood pressure 73 mm[Hg] Boyd Harry MD Work Phone: [facility] 06-02-2024 13:25-0500 Heart rate 115 /min Boyd Harry MD Work Phone: [facility] 06-02-2024 13:25-0500 Respiratory rate 16 /min Boyd Harry MD Work Phone: [facility] 06-02-2024 13:25-0500 Systolic blood pressure 154 mm[Hg] Boyd Harry MD Work Phone: [facility] 05-31-2024 13:05-0500 Diastolic blood pressure 64 mm[Hg] Rodriguez Rashel DO Work Phone: [facility] 05-31-2024 13:05-0500 Systolic blood pressure 108 mm[Hg] Rodriguez Rashel DO Work Phone: [facility] 03-07-2024 11:34-0500 Diastolic blood pressure 88 mm[Hg] Rodriguez Rashel DO Work Phone: [facility] 03-07-2024 11:34-0500 Heart rate 68 /min Rodriguez Rashel DO Work Phone: [facility] 03-07-2024 11:34-0500 SaO2% (BldA) [Mass fraction] 98 % Rodriguez Rashel DO Work Phone: [facility] 03-07-2024 11:34-0500 Systolic blood pressure 128 mm[Hg] Rodriguez Kiser DO Work Phone: [facility] 12-16-2022 10:18-0400 Blood Pressure Location Arline Lue [facility] 12-16-2022 10:18-0400 Body temperature 98.06 [degF] Arline Lue [facility] 12-16-2022 10:18-0400 Diastolic blood pressure 78 mm[Hg] Arline Lue [facility] 12-16-2022 10:18-0400 Heart rate 84 /min Arline Lue [facility] 12-16-2022 10:18-0400 Systolic blood pressure 128 mm[Hg] Arline Lue [facility] 12-23-2021 11:30-0400 Body height 157.48 cm Antionette Leonel Other [facility] [employer] Other 12-23-2021 11:30-0400 Body mass index (BMI) [Ratio] 25.79 kg/m2 Antionette Leonel Other [employer] Other 12-23-2021 11:30-0400 Body temperature 98.5 [degF] Antionette Leonel Other [employer] Other 12-23-2021 11:30-0400 Body weight 63.96 kg Antionette Leonel Other [employer] Other 12-23-2021 11:30-0400 Diastolic blood pressure 70 mm[Hg] Antionette Leonel Other [employer] Other 12-23-2021 11:30-0400 Respiratory rate 20 /min Antionette Leonel Other [employer] Other 12-23-2021 11:30-0400 SaO2% (BldA) [Mass fraction] 99 % Antionette Leonel Other [employer] Other 12-23-2021 11:30-0400 Systolic blood pressure 120 mm[Hg] Antionette Leonel Other [employer] Other 10-22-2021 10:29-0400 Blood Pressure Location Arline Lue [facility] 10-22-2021 10:29-0400 Diastolic blood pressure 92 mm[Hg] Arline Lue [facility] 10-22-2021 10:29-0400 Heart rate 100 /min Arline Lue [facility] 10-22-2021 10:29-0400 Respiratory rate 16 /min Arline Lue [facility] 10-22-2021 10:29-0400 Systolic blood pressure 137 mm[Hg] Arline Lue [facility] Encounters Encounter Date Encounter Type Care Provider Facility Start: 07-11-2024 End: 07-11-2024 [facility] Work Phone: Start: 07-11-2024 End: 07-11-2024 [facility]: Start: 06-12-2024 ambulatory UNKNOWN PROVIDER Facili ty:[facility] Start: 06-12-2024 End: 06-12-2024 ambulatory AP SCOTT Facility:[facility] Start: 06-12-2024 End: 06-12-2024 Subsequent hospital visit by physician Ap Scott DDS Work Phone: [facility] Start: 06-05-2024 End: 06-05-2024 Telephone encounter Blessing Roy RN [facility] Pre-Admission Testing Comment on above: PAT (Informed Consen t & Anesthesia consent obtained) Start: 06-02-2024 Encounter for other preprocedural examination UNKNOWN PROVIDER [facility] Start: 06-02-2024 End: 06-02-2024 Subsequent hospital visit by physician Op Xray 1 [facility] Radiology Comment on above: Pre-op evaluation Start: 06-02-2024 End: 06-02-2024 ambulatory BOYD HARRY Facility:[facility] Start: 06-02-2024 End: 06-02-2024 Office outpatient new 45 minutes Pat Anesthesia [facility] Pre-Admission Testing Comment on above: Preop examination (P rimary Dx); Intellectual disability; Hypothyroidism, unspecified type; Seizure (HCC); Edema, unspecified type; Tachycardia, unspecified; Cardiomegaly; Abnormal electrocardiogram (ECG) (EKG); Abnormal electrocardiogram (ECG) (EKG); Abnormal electrocardiogram (ECG) (EKG) Pre-op evaluation (P rimary Dx); Mental disability; Hypothyroidism, unspecified type; Abnormal thyroid blood test Start: 06-02-2024 End: 06-02-2024 Preprocedural examination done Boyd Harry MD Work Phone: [facility] Work Phone: Start: 06-02-2024 End: 06-02-2024 ambulatory BOYD HARRY Facility:[facility] Start: 05-31-2024 End: 05-31-2024 Bamboo flowsheet Rodriguez Rashel DO Work Phone: [facility] Start: 05-31-2024 End: 05-31-2024 Bamboo flowsheet Rodriguez Rashel DO Work Phone: [facility] [place] Start: 05-31-2024 End: 05-31-2024 Office outpatient visit 25 minutes Rodriguez Rashel DO Work Phone: [facility] [place] Comment on above: Generalized convulsi ve epilepsy (CMS/HCC) (Primary Dx); 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); Spastic hemiplegia, nondominant side (HCC) (CMS/HCC); Spastic hemiplegia affecting dominant side (CMS/HCC); Severe intellectual disabilities (CMS/HCC); Behavior disturbance (CMS/HCC) Start: 05-31-2024 End: 05-31-2024 ambulatory RODRIGUEZ RASHEL Not Available Start: 03-28-2024 End: 03-28-2024 Admission to same day surgery center Jared Adair S Work Phone: [facility] Start: 03-07-2024 End: 03-07-2024 Bamboo flowsheet Rodriguez Rashel DO Work Phone: [employer] [place] [address] Start: 03-07-2024 End: 03-07-2024 Bamboo flowsheet Rodriguez Rashel DO Work Phone: [employer] [address] Start: 03-07-2024 End: 03-07-2024 Office outpatient visit 25 minutes Rodriguez Rashel DO Work Phone: [employer] [address] Comment on above: Generalized convulsi ve epilepsy (CMS/HCC) (Primary Dx); 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); Spastic hemiplegia affecting dominant side (CMS/HCC); Spastic hemiplegia, nondominant side (HCC) (CMS/HCC); Severe intellectual disabilities (CMS/HCC) Start: 03-07-2024 End: 03-07-2024 ambulatory RODRIGUEZ RASHEL Not Available Start: 01-11-2024 End: 01-11-2024 ambulatory [facility] Work Phone: Start: 01-11-2024 End: 01-11-2024 Patient encounter procedure [facility] Work Phone: Start: 11-07-2023 End: 11-07-2023 Letter encounter Abundio Mares DDS Work Phone: [facility] Start: 08-25-2023 End: 08-25-2023 ambulatory RODRIGUEZ KISER Not Available Start: 07-06-2023 End: 07-06-2023 ambulatory [facility] Work Phone: Start: 07-06-2023 End: 07-06-2023 Patient encounter procedure [facility] Work Phone: Start: 01-05-2023 End: 01-05-2023 ambulatory Antionette Leonel Other [employer] Other Start: 01-05-2023 Office outpatient vi sit 25 minutes Antionette Leonel [facility] Start: 12-16-2022 End: 12-17-2022 ambulatory Arline Levine Facility:[facility] Start: 12-16-2022 End: 12-16-2022 Patient encounter procedure Arline Levine [facility] Start: 08-04-2022 End: 08-04-[address] FAM ACEVEDO Facility: Start: 07-29-2022 End: 08-02-2022 Evaluation and management of inpatient DR FAM ACEVEDO Facility:[facility] Start: 07-26-2022 End: 07-27-[address] FAM ACEVEDO Facility:[facility] Start: 07-23-2022 End: 07-24-2022 ambulatory FAM ACEVEDO Facility:[facility] Start: 07-23-2022 End: 07-23-2022 Patient encounter procedure FAM ACEVEDO [facility] Start: 06-23-2022 End: 06-23-2022 ambulatory Antionette Leonel Other [facility] [employer] Other Start: 06-23-2022 Office outpatient vi sit 25 minutes Antionette Leonel [facility] Start: 06-03-2022 End: 06-04-[address] FAM ACEVEDO Facility:[facility] Start: 05-08-2022 Letter encounter Abundio Vishnu DDS Work Phone: [facility] Start: 04-22-2022 End: 04-23-[address] FAM ACEVEDO Facility:[facility] Start: 03-19-2022 End: 03-20-[address] FAM ACEVEDO Facility:[facility] Start: 03-10-2022 End: 03-11-[address] FAM ACEVEDO Facility:[facility] Start: 01-24-2022 End: 01-24-[address] DIMAOND BURGER . Facility:[facility] Start: 01-18-2022 End: 01-18-2022 ambulatory ANJELICA DOLL . Facility:[facility] Start: 01-13-[address] RODRIGUEZ KISER [facility] ty:[facility] Start: 01-12-2022 End: 01-13-[address] RODRIGUEZ KISER Facility:[facility] Start: 01-06-2022 End: 01-07-[address] FAM ACEVEDO Facility:[facility] Start: 12-23-2021 End: 12-23-2021 ambulatory Antionette Leonel Other [employer] Other Start: 12-23-2021 Office outpatient vi sit 25 minutes Antionette Leonel [facility] Start: 12-16-2021 End: 12-17-2021 Patient encounter procedure Mora Powell [facility] Work Phone: [facility] Start: 12-10-2021 End: 12-10-2021 Patient encounter procedure Arline Levine [facility] Start: 11-20-2021 End: 11-21-[address] FAM ACEVEDO Facility:[facility] Start: 11-13-2021 End: 11-14-2021 ambulatory ARLINE Schwarz LEONORKristin . Facility:[facility] Start: 10-31-2021 End: 11-01-[address] FAM ACEVEDO Facility:[facility] Start: 10-22-2021 End: 10-22-2021 Patient encounter procedure Arline Levine [facility] Start: 10-21-2021 End: 10-21-[address] FAM ACEVEDO Facility:[facility] Start: 09-29-2021 End: 09-29-[address] FAM ACEVEDO Facility:[facility] Start: 09-22-2021 End: 09-22-2021 ambulatory ABBI SANCHEZ Facility:[facility] Procedures Date Procedure Procedure Detail Performing Clinician Start: 06-12-2024 End: 06-12-2024 DENTAL RESTORATIONS Ap Scott DDS Work Phone: Start: 06-02-2024 Radiologic exam ches t 2 views Boyd Harry MD Work Phone: Start: 06-02-2024 Blood count complete automated Сергей [...] (RZV) Vaccine (1 of 2) [facility] Start: 08-12-2028 Lipid panel [facility] Start: 06-02-2025 Thyroid stimulating hormone measurement TSH [facility] Start: 01-17-2025 Influenza vaccination Influenza Vacc ine (#1) [facility] Start: 12-11-2024 End: 12-11-2024 Patient encounter procedure [facility] Start: 11-20-2024 End: 11-20-2024 Patient encounter procedure 11/20/2024 11:20 AM EDT Office Visit [facility] [address] [place] [address] Marissa Gonzalez NP [address] [place], [place] [facility] Start: 06-12-2024 Subsequent hospital visit by physician 06/12/2024 Hospital Encounter [facility] [address] [place] [address] Ap Scott, CHRISS [address] [place] [address] [facility] Start: 06-02-2024 End: 06-02-2024 Patient encounter procedure 06/02/2024 1:30 PM EST Office Visit [facility] [address] [place] [address] Boyd Harry MD [address] [place] [address] [facility] Start: 05-31-2024 End: 05-31-2024 Patient encounter procedure [facility] [place] [address] Comment on above: Arrived Start: 05-30-2024 Welcome to Medicare Visit (G0402) Welcome to Medicare Visit (G0402) [facility] Start: 03-07-2024 End: 03-07-2024 Patient encounter procedure 03/07/2024 11:30 AM EST Office Visit [facility] [address] [place] [address] Rodriguez Kiser DO [address] [place] [address] Ar[address] [facility] [address] [address] Comment on above: Arrived Start: 01-18-2024 Influenza vaccination Influenza Vacc ine (#1) [facility] Start: 12-19-2023 COVID-19 Vaccine ( season) COVID-19 Vaccine ( season) [facility] Start: 12-19-2023 Influenza vaccination Influenza Vacc ine (#1) [facility] Start: 12-18-2022 COVID-19 Vaccine ( season) COVID-19 Vaccine ( season) [facility] Start: 01-17-2022 Influenza vaccination Influenza Vacc ine (#1) [facility] Start: 02-01-2015 Lipid panel Cholesterol [facility] Start: 05-20-2012 Annual wellness visit Annual [facility] Visit ([id number]) [facility] Start: 02-01-2007 HPV Vaccine (optiona l start 27-45 years) HPV Vaccine (optional start 27-45 years) [facility] Start: 02-01-1999 Hepatitis A (HAV) Vaccine (optional start 19+ years) Hepatitis A (HAV) Vaccine (optional start 19+ years) [facility] Start: 02-01-1999 Hepatitis B vaccination Hepatitis B (HBV) Vaccine (1 of 3 - 19+ 3-dose series) [facility] Start: 02-01-1998 Hepatitis C screening Hepatitis C An [facility] Start: 02-01-1998 Tetanus + diphtheria + acellular pertussis vaccine (product) Tdap Booster [facility] Start: 02-01-1995 HIV screening HIV Test [facility] Start: 1980 COVID-19 Vaccine (#1) COVID-19 Vacci ne (#1) [facility] Start: 1980 Medicare Annual Wellness (AWV) Medicare Annual Wellness (AWV) [facility] Start: 1980 Prostate specific antigen measurement Prostate Cancer Screening (shared decision making) [facility] DENTAL RESTORATIONS DENTAL ANI RATIONS Routine scheduled Caries [facility] Immunizations Immunization Date Immunization Notes Care Provider Fa cility 03-04-2020 pneumococcal conjuga te vaccine, 13 valent Mora Powell [facility] Work Phone: [facility] 01-26-2018 influenza, injectabl e, quadrivalent, preservative free Mora Urmetz RDH Work Phone: [facility] 01-26-2018 influenza virus vaccine, unspecified formulation Mora Urmetz RDH Work Phone: [facility] 02-10-2017 influenza virus vaccine, unspecified formulation Arline Lue [facility] 02-10-2017 influenza, injectabl e, quadrivalent, contains preservative Mora Urmetz RDH Work Phone: [facility] 02-07-2015 influenza virus vaccine, unspecified formulation Arlien Lue [facility] 02-07-2015 influenza, injectabl e, quadrivalent, preservative free Mora Urmetz RDH Work Phone: [facility] 10-23-2014 pneumococcal polysaccharide vaccine, 23 valent Mora Urmetz RDH Work Phone: [facility] 12-31-2010 influenza virus vaccine, unspecified formulation Arline Lue [facility] 12-31-2010 influenza, seasonal, injectable Mora Urmetz RDH Work Phone: [facility] 03-06-2009 novel [id number], preservative-free, injectable Mora Urmetz RDH Work Phone: [facility] 02-09-2008 influenza virus vaccine, whole virus Mora Urmetz RDH Work Phone: [facility] 02-09-2008 influenza, whole Arline Lue [facility] NEGATED: Highlighted row has not occurred!12-10-2021 SARS-CoV-2 mRNA (tozisebaseran 5y-11y) vaccine Arline Levine [facility] Payers Date Payer Category Payer Medicaid [id number] 2011 Medicare [id number] 2011 Medicare FFS [id number] [id number] 1980 Unknown [id number] 2.16.84 0.1.439352.3.579.2.593 1980 Unknown [id number] 2.16.84 0.1.933752.3.579.2.593 1980 Unknown [id number] 2.16.84 0.1.978784.3.579.2.593 1980 Unknown [id number] 2.16.84 0.1.699293.3.579.2.593 1980 Unknown [id number] 2.16.8 40.1.138300.3.579.2.727 1980 Unknown [id number] 2.16.8 40.1.098749.3.579.2.727 1980 Unknown [id number] 2.16.84 0.1.334912.3.579.2.1259 1980 Unknown [id number] 2.16.84 0.1.630948.3.579.2.1259 1980 Unknown [id number] 2.16.84 0.1.484544.3.579.2.1259 1980 Unknown [id number] 2.16. 840.1.677210.3.579.2.732 1980 Unknown [id number] 2.16. 840.1.018378.3.579.2.732 1980 Unknown [id number] 2.16. 840.1.473577.3.579.2.732 1980 Unknown [id number] 2.16. 840.1.253985.3.579.2.732 1980 Unknown [id number] 2.16. 840.1.458124.3.579.2.732 1980 Unknown [id number] 2.16. 840.1.309804.3.579.2.732 1959 Medicaid [id number] 2. 16.840.1.477019.19 1959 Medicare [id number] 2.1 6.840.1.808596.19 1953 Unknown [id number] 2.16.84 0.1.722978.3.579.2.593 1953 Unknown [id number] 2.16.84 0.1.193733.3.579.2.593 1953 Unknown [id number] 2.16.84 0.1.189590.3.579.2.593 1953 Unknown [id number] 2.16.84 0.1.215060.3.579.2.593 1953 Unknown [id number] 2.16.84 0.1.196618.3.579.2.593 1953 Unknown [id number] 2.16.84 0.1.773531.3.579.2.593 1953 Unknown [id number] 2.16.84 0.1.863272.3.579.2.593 1953 Unknown [id number] 2.16.84 0.1.604827.3.579.2.593 1953 Unknown [id number] 2.16.84 0.1.339273.3.579.2.593 1953 Unknown [id number] 2.16.84 0.1.707981.3.579.2.593 1953 Unknown [id number] 2.16.84 0.1.125566.3.579.2.593 1953 Unknown [id number] 2.16.84 0.1.729546.3.579.2.593 1953 Unknown [id number] 2.16.84 0.1.437243.3.579.2.593 1953 Unknown [id number] 2.16.84 0.1.702604.3.579.2.593 Self-pay Self Pay [id number] Social History Date Type Detail Facility Tobacco smoking status No Smokin g Status Entered [facility] Start: 11-02-2022 End: 05-31-2024 Sex Assigned At Male [facility] Start: 03-28-2020 Tobacco smoking stat [facility] Tobacco smoking consumption unknown [facility] Start: 1980 Sex Assigned At Not on file [facility] Tobacco smoking status No Smokin g Status Entered [facility] Start: 11-02-2022 End: 12-16-2022 Tobacco smoking status Never smoked tobacco (finding) [facility] Tobacco smoking status Never [facility] Start: 1980 Sex Assigned At Male [facility] Start: 11-02-2022 End: 05-31-2024 Alcoholic beverage intake Ex-drinker (finding) [facility] Start: 11-02-2022 End: 05-31-2024 History of Social function [facility] Start: 02-21-2012 End: 07-11-2024 Sex Male (finding) [facility] Functional Status Date Assessment Result Facility 12-16-2022 Functional Status N/A [facility] 12-10-2021 Functional Status N/A [facility] 10-22-2021 Functional Status N/A [facility] Clinical Notes 10-22-2021 to 06-12-2024 Discharge InstructionsAttachmentsOP Note - Ap Scott, DDS - 06/12/2024 7:07 AM ESTOP Note - Ap Scott DDS - 06/12/2024 7:07 AM Beatris Denson DDS - 06/12/2024 6:58 AM EST Note Date & Type Note Facility 06-12-2024 Hospital Discharge instructions Adalgisa Maldonado RN - 06/12/2024 8:24 AM EST PERIOPERATIVE DISCHARGE/HOME-GOING INSTRUCTIONS ANESTHESIA - GENERAL (ADULT) If a problem arises, you may contact your physician by calling [phone] and asking for the resident building construction inspector for Dental service. Special Care Needs: Activity: Rest at home today and tomorrow, then progress to your regular activities as tolerated. Diet: Clear liquids are best tolerated at first. If you are not nauseated, you can progress your diet to solid foods as tolerated. Possible post-operative precautions: Call you doctor or clinic for: 1. Signs of infection such as fever or chills. 2. Severe pain that in not relieved by Tylenol or your pain medicine prescription. 3. You may have a sore throat - it is usually gone in 1 to 2 days. Post-anesthesia safety: Possible side effects include drowsiness, dizziness, or inability to think clearly. For your safety, do not drive, drink alcoholic beverages, take any unprescribed medication or make any important decisions for 24 hours. A responsible adult should be with you for 24 hours. If no urine by 3 pm or you become very uncomfortable and can t urinate, call [phone] or come to the emergency room. A risk of anesthesia is post operative nausea and/or vomiting (PONV). Certain patients?are at higher risk than others. Talk to your anesthesiologist about the plan to minimize this risk. In?general, it is best to start with only ice chips or small sips of water, then progress to clear, non-alcoholic fluids. You do not have to eat if you do not feel like it; fluids?are the most important in?the first?24 hours after surgery. If you start to eat, try bananas, applesauce, plain toast, saltine crackers, or broth; avoid fried or fatty foods. Make sure to eat something about 15 minutes before taking any pain medications. Seek medical attention for any prolonged?PONV and signs of dehydration. The day after surgery, a nurse will call to check on you. However, if there are any questions or concerns, please call us at the number listed in the home going instructions. The following attachments cannot be sent through Care Everywhere.How to Care for Your Mouth and Teeth (Nepali)documented in this encounter [facility] 06-12-2024 Surgery Surgical operation note Operative Note PHE OR 3 Parish Lopez 44 year old male Surgical Contact Serial Number: [id number] Preoperative Diagnosis: Pre-op Diagnosis * Caries [K02.9] Mental disability COPD Hyperthyroidism Seizures HLD GERD Postoperative Diagnosis: Mental Disability COPD Hyperthyroidism Seizures HLD GERD Procedures: Full mouth x-rays [04070] Comprehensive Exam [[id number]] Dental prophylaxis [35904] Surgeon: Ap Scott DDS Emt B Surgeon: Hansel Burgess DDS; Beatris Thompson DMD [...] procedure. Beatris Thompson DDS 06/12/2024 7:07 AM [facility] Work Phone: 06-12-2024 Miscellaneous Notes Operative Note PHE OR 3 Parish Lopez 44 year old male Surgical Contact Serial Number: [id number] Preoperative Diagnosis: Pre-op Diagnosis * Caries [K02.9] Mental disability COPD Hyperthyroidism Seizures HLD GERD Postoperative Diagnosis: Mental Disability COPD Hyperthyroidism Seizures HLD GERD Procedures: Full mouth x-rays [92878] Comprehensive Exam [71019] Dental prophylaxis [91021] Surgeon: Ap Scott DDS Emt B Surgeon: Hansel Burgess DDS; Beatris Thompson, JESSICA Anesthesia: General- Nasal ETT Estimated Blood Loss: [...] procedure. Beatris Thompson DDS 06/12/2024 7:07 AM Blood Attestation: REFUSAL OF BLOOD OR BLOOD COMPONENTS: The patient and/or legal aircraft sales representative has been explained the need for transfusion of blood and/or blood components. The risks, benefits and alternatives have been explained. Questions concerning the transfusion of blood or blood components have been asked and answered. The patient and/or legal aircraft sales representative have REFUSED TO CONSENT transfusion of blood or blood products. PER PATIENT'S MOTHER Brief Operative Note PHE OR 3 Parish Lopez 44 year old male Surgical Contact Serial Number: [id number] Preoperative Diagnosis: Pre-op Diagnosis * Caries [K02.9] Mental disability COPD Hyperthyroidism Seizures HLD GERD Postoperative Diagnosis: Mental disability COPD Hyperthyroidism Seizures HLD GERD Procedures: Full mouth x-rays [81113] Comprehensive Exam [64182] Dental prophylaxis [55667] Surgeon(s): Surgeon(s): Ap Scott DDS Staff: Medical Record Technician Nurse: Felisha Moore Anesthesia: General Anesthesiologist: Blake [...] by Beatris Thompson DDS 06/12/2024 7:03 AM Cosigned by Ap Scott DDS at 06/12/2024 8:43 AM EST documented in this encounter [facility] 06-12-2024 Progress note Formatting of t his note might be different from the original. Blood Attestation: REFUSAL OF BLOOD OR BLOOD COMPONENTS: The patient and/or legal aircraft sales representative has been explained the need for transfusion of blood and/or blood components. The risks, benefits and alternatives have been explained. Questions concerning the transfusion of blood or blood components have been asked and answered. The patient and/or legal aircraft sales representative have REFUSED TO CONSENT transfusion of blood or blood products. PER PATIENT'S MOTHER [facility] Work Phone: 06-12-2024 Surgery Postoperative evaluation and management note Brief Operative Note [facility] OR 3 Parish Lopez 44 year old male Surgical Contact Serial Number: [id number] Preoperative Diagnosis: Pre-op Diagnosis * Caries [K02.9] Mental disability COPD Hyperthyroidism Seizures HLD GERD Postoperative Diagnosis: Mental disability COPD Hyperthyroidism Seizures HLD GERD Procedures: Full mouth x-rays [69562] Comprehensive Exam [[id number]] Dental prophylaxis [15431] Surgeon(s): Surgeon(s): Ap Scott DDS Staff: Medical Record Technician Nurse: Felisha Moore Anesthesia: General Anesthesiologist: Blake [...] by Beatris Thompson DDS 06/12/2024 7:03 AM Cosigned by Ap Scott DDS at 06/12/2024 8:43 AM EST [facility] 06-12-2024 Consult note Formatting of th is note might be different from the original. Surgical Attestation: I have reviewed the patient's History and Physical Examination. I have personally seen and evaluated the patient, repeating anthony portions. There is no significant interval change. Surgery is still indicated. Yes Consent reviewed and signed by patient/family: Yes Operative site verified and marked: site verified but not marked as not anatomically possible Beatris Thompson DDS 06/12/2024 6:59 AM Cosigned by Ap Scott DDS at 06/12/2024 8:43 AM EST [facility] 06[facility]12[facility] Note Surgical Attestation : I have [...] Beatris Thompson DDS 06/12/2024 6:59 AM [facility] 06-12-2024 Consult note Formatting of th is note might be different from the original. Surgical Attestation: I have reviewed the patient's History and Physical Examination. I have personally seen and evaluated the patient, repeating anthony portions. There is no significant interval change. Surgery is still indicated. Yes Consent reviewed and signed by patient/family: Yes Operative site verified and marked: site verified but not marked as not anatomically possible Beatris Thompson DDS 06/12/2024 6:59 AM Cosigned by Ap Scott DDS at 06/12/2024 8:43 AM EST documented in this encounter [facility] 06-05-2024 Telephone encounter Note Informed Consent for dental surgery & Anesthesia consent obtained and scanned into [employer]. Scheduled for surgery 06/12/2024. [facility] 06-05-2024 Miscellaneous Notes Informed Consent for dental surgery & Anesthesia consent obtained and scanned into [employer]. Scheduled for surgery 06/12/2024. documented in this encounter [facility] 06-02-2024 Note Addended by: BOYD HARRY on: 06/02/2024 05:54 PM Modules accepted: Orders [facility] 06-02-2024 Miscellaneous Notes Addended by: BOYD HARRY on: 06/02/2024 05:54 PM Modules accepted: Orders documented in this encounter [facility] 06-02-2024 Note EXAMINATION: XR CHES T [...] agree with the resident's interpretation. RADIOLOGY 06-02-2024 Note EXAMINATION: XR CHES T PA+LAT [...] and agree with the resident's interpretation. 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 Contact the Pre-Surgical Evaluation department at [phone] or your surgeon's office with any additional questions [facility] 06-02-2024 Instructions Сергей Alves MD - [...] procedure. Contact the Pre-Surgical Evaluation department at [phone] or your surgeon's office with any additional questions documented in this encounter [facility] 06-02-2024 Evaluation note Pre-Admission Testing Consultation Parish Lopez, [id number] 44 year old Male 06/02/2024 Consult placed to [facility] by Dr. Zamora due to significant PMH of Seizures, mental disability, hypothyroid undergoing dental restorations 06/12 [facility] Triage Risk Score Total Score: [...] 1 extraction; Surgeon: Ap Scott DDS; Location: [facility]; Service: Dental Past Medical History and Review of Systems Pulmonary (+) COPD (-) sleep apnea Dental ROS (+) teeth problems missing Endo (+) hyperthyroidism Neuro/Psych (+) seizures Comment: intellectual disability Vagus nerve stimulator Cardiovascular (+) hyperlipidemia (-) hypertension, past [place], CAD, angina GI/Hepatic/Renal (+) GERD (-) renal [...] and educating the patiecounseling and educating the patient/family/caregivernt/fami ly/caregiver - counseling and educating the patient/family/caregiver - ordering medications, tests, or procedures - referring and communicating with other health vehicle care specialist (when not separately reported) - documenting clinical information in the electronic or other health record - independently interpreting results (not separately reported) and communicating results to the patient/family/caregiver - care coordination (not separately reported). Interviewer signature: Сергей Alves MD 1:35 PM 06/02/2024 Cosigned by Jonnie Aguilar MD at 06/02/2024 2:05 PM EST [facility] 06-02-2024 Miscellaneous Notes Pre-Admission Testing Consultation Parish Lopez, [id number] 44 year old Male 06/02/2024 Consult placed [...] 1 extraction; Surgeon: Ap Scott DDS; Location: [facility] Surgery [place]; Service: Dental Past Medical History and Review of Systems Pulmonary (+) COPD (-) sleep apnea Dental ROS (+) teeth problems missing Endo (+) hyperthyroidism Neuro/Psych (+) seizures Comment: intellectual disability Vagus nerve stimulator Cardiovascular (+) hyperlipidemia (-) hypertension, past [place], CAD, angina GI/Hepatic/Renal (+) GERD (-) renal [...] and educating the patiecounseling and educating the patient/family/caregivernt/fami ly/caregiver - counseling and educating the patient/family/caregiver - ordering medications, tests, or procedures - referring and communicating with other health vehicle care specialist (when not separately reported) - documenting clinical information in the electronic or other health record - independently interpreting results (not separately reported) and communicating results to the patient/family/caregiver - care coordination (not separately reported). Interviewer signature: Сергей Alves MD 1:35 PM 06/02/2024 Cosigned by Jonnie Aguilar MD at 06/02/2024 2:05 PM EST documented in this encounter [facility] 06-02-2024 Note Pre-Admission Testin garett Consultation Parish Lopez, [id number] 44 year old Male 06/02/2024 Consult placed to [facility] by Dr. Zamora due to significant PMH of Seizures, mental disability, hypothyroid undergoing dental restorations 06/12 [facility] Triage Risk Score Total Score: [...] No STOP BANG: STOP-BANG Row Name 06/02/24 5504 History of sleep apnea? No Snoring No [...] 1 extraction; Surgeon: Ap Scott DDS; Location: [facility] Surgery [place]; Service: Dental Past Medical History and Review of Systems Pulmonary (+) COPD (-) sleep apnea Dental ROS (+) teeth problems missing Endo (+) hyperthyroidism Neuro/Psych (+) seizures Comment: intellectual disability Vagus nerve stimulator Cardiovascular (+) hyperlipidemia (-) hypertension, past [place], CAD, angina GI/Hepatic/Renal (+) GERD (-) renal [...] appropriate examinati (more content not included)... [facility] 05-31-2024 History of Present illness Narrative [...] disorder) ADD/ADHD ADHD (attention deficit hyperactivity disorder) ([facility]) ADD/ADHD Chronic sinusitis Excessive salivation Hypertrophy tonsils Hypothyroidism ([facility]) Mental problem Mental retardation Onychomycosis Osteoporosis ([facility]) Perennial allergic rhinitis Seasonal allergies Seizure disorder [...] oddly now 124 there is a new sql database programmer [employer] : on at 1.25 [employer] Pulse Width: 500 [employer] On Time: 30 Lead Test: not done Battery Life: 06/20 full Model: Oj Rocha #: [id number] Manufactured: 2019 Implant Date: 09/09/2021 Assessment/Plan Diagnoses [...] it may be due to a new sql database programmer device difficult to say Labs [...] clinic: 6 months. documented in this encounter [facility] 03-07-2024 History of Present illness Narrative No [...] detections Lead Test: not done Battery Life: 3/ full Model: [id number] Seriel #: [id number] Manufactured: 2020 Implant Date: 09/09/2021 Assessment/Plan Diagnoses [...] clinic: 6 months. documented in this encounter [facility] 01-05-2023 Evaluation note Encounter Date Diagnosis Assessment Notes Dec, COPD (chronic obstructive pulmonary disease) (ICD-10 - J44.9) [employer] Other 08-30-2023 Hospital Discharge instructions Patient Education [...] provider. Document Revised: 08/14/2021 Document Reviewed: 08/14/2021 [facility] Patient Education 2022 [employer]. Follow Up Care 12/10/2021 11:51:23 With:Abner BYRNE, JUNIOR Hawk, URO Address: When: Unknown Comments:PRN [facility] 03-07-2023 Evaluation note* Encounter Date Diagnosis Assessment Notes Treatment Notes Treatment Clinical Notes Jun, COPD (chronic obstructive pulmonary disease) (ICD-10 - J44.9) Continue with respiratory regemin, including VEST therapy, as you currently are doing. Call office with respiratory questions or concerns. [employer] Other 09-06-2022 Evaluation note* Encounter Date Diagnosis Assessment Notes Treatment Notes Treatment Clinical Notes Dec, COPD (chronic obstructive pulmonary disease) (ICD-10 - J44.9) Continue with VEST therapy twice a day. Ok to increase to TID if needed. [employer] Other 08-30-2022 Instructions* Patient Instructions* Mora Powell RDH - 12/16/2021 11:57 AM EDT Pt presented today for OR evaluation. Limited eval was completed. Pt's case is not urgent updated contact information and placed Pt on OR list. Step by step process for OR flyer was given to caregiver. Please wait for phone call from OR coordinator. documented in this [id number] History of Present illness Narrative* Mora Powell RDH - 12/16/2021 11:42 AM EDT ----- Thursday, December 16, 2021 at 12:03:50 PM ----- ----- Provider: [id number] Powell, Hygienist -- Clinic: [place] ----- [facility], Pt is ready for tx. Pt presented for dental evaluation for future OR. Caregiver in the room. Patient is non-verbal. Severe intellectual disability, seizure disorder Caregiver stated patient is not pain and no complaining. Radiograph taken today: no possible due to patient behavior Case requested for OR. Guardian mother Katia Lopez. [phone]. [facility] [phone] [id number] [id number] ( [facility] pt's appt) AVS printed and handed flyer for step by step instruction of OR process to Caregiver exam By: Elliott Ham [facility] [place]. OR ----- Signed on Thursday, December 16, 2021 at 12:18:18 PM ----- ----- Provider: [id number] Heriberto Adams DDS -- Clinic: [place] ----- documented in this [id number] Hospital Discharge instructions Patient Education 12/10/2021 11:47:35 [...] nerve stimulation). For women, using a medical billing associate to prevent urine leaks. This is a [...] right after experiencing incontinence. General instructions Take dkhr-jzp-gynmujb and prescription medicines only as told by [...] 05/13/2005 Document Revised: 04/15/2018 Document Reviewed: 07/15/2017 [facility] Patient Education [address] [facility] Follow Up Care 10/22/2021 11:38:20 With:Abner BYRNE, Arline Little URDominga, URO Address: When:1 year Comments:W/ renal US [facility] [facility] 07-06-2022 Hospital Discharge instructions Patient Education [...] nerve stimulation). For women, using a medical billing associate to prevent urine leaks. This is a [...] right after experiencing incontinence. General instructions Take iimg-oys-abxezwq and prescription medicines only as told by [...] 05/13/2005 Document Revised: 04/15/2018 Document Reviewed: 07/15/2017 [facility] Patient Education 2020 [employer]. 10/22/2021 11:42:30 Renal Mass Renal Mass A [...] provider gives to you. In general: Take rudn-mxf-wiggngh and prescription medicines only as told by [...] 10/31/2014 Document Revised: 05/12/2018 Document Reviewed: 05/12/2018 [facility] Patient Education 2020 [employer]. Follow Up Care 09/22/2021 14:10:46 With:Abner BYRNE, Arline Little, URL, URO Address: When:1 month [facility] evaluation + Plan note Future Appointments Appointment Date:11/19/2021 10:00:00 AM Scheduled Provider:Arline Levine MD Location:[facility] Appointment Type:URO Office Visit [facility] evaluation + Plan note Future Appointments Appointment Date:12/16/2022 10:15:00 AM Scheduled Provider:Abner BYRNE, Arline Little Location:[facility] Appointment Type:URO Office Visit [facility] evalftqbne note* Diagnosis Onset Date Resolution Status COPD (chronic obstructive pulmonary disease) acute Severe intellectual disability acute [facility] Work Phone: Evaluation note* Diagnosis Generalized convulsive [...] COPD (chronic obstructive pulmonary disease) acute July 11, 025 9:09am Severe intellectual disability acute July 11, 2024 9:09am [facility] Work Phone: Evaluation note* Diagnosis Preop examination- [...] Preoperative examination, unspecified [facility] Pre-[facility] evaluation Preoperative examination, unspecified [facility] Diagnosis [...] History COPD Surgical History VNS REPLACED 2021 [employer] Other Hospital course Narrative No data available for this section [facility] Discharge instructions No data available for this section [facility] No data available for this section [facility] reason for visit Narrative* Diagnostic X-Ray (Routine) - Closed Specialty Diagnoses / Procedures Referred By Snow dunaway Referred To Contact Radiology Diagnoses Pre-op evaluation Procedures XR CHEST PA+LAT 2 VIEWS Boyd Harry MD [address] [place] [address] Phone: tel: fax: [facility] [address] [place] [address] [place] [address] Phone: tel: Referral ID Status Reason Start Date Expiration Date Visits Re quested Visits Authorized [id number] Closed 06/02/2024 06/02/2025 1 1 [facility] for visit Narrative* Auth/Cert (Routine) Specialty Diagnoses / Procedures Referred By Snow dunaway Referred To Contact Ambulatory Surgery Diagnoses Caries Caries [[email or web address]] Procedures UNLISTED PROCEDURE, DENTOALVEOLAR STRUCTURES ANESTHESIA, INTRAORAL PROC, W/BX; NOS DENTAL RESTORATIONS Ap Scott, DDS [address] [facility] [place] [address] Phone: tel: fax: [facility] [address] [place] [phone] Phone: tel: Referral ID Status Reason Start Date Expiration Date Visits Re quested Visits Authorized [id number] 3 [facility] Summary Purpose Family History [...] Care Team (unrecognized sect ion and content) Wrapper Stitcher Relationship Specialty Start Date End Date Abundio Mares DDS [address] [place] [address] Resident Dentistry 02/23/20 Wrapper Stitcher Relationship Specialty Start Date End Date Abundio Mares DDS [address] [place] [address] Resident Dentistry 02/23/20 Team Status: Active Member Role Status Dates Fam Acevedo DO Primary Care Provider Active Team Status: Inactive Member Role Status Dates Fam Acevedo DO Primary Care Provider Active Start: July 06, 2023 End: July 06, 2023 Antionette Castaneda APRN [facility] Attending Provider Active Start: July 06, 2023 End: July 06, 2023 Wrapper Stitcher Relationship Specialty Start Date End Date Abundio Mares DDS [address] [place] [address] Resident Dentistry 02/23/20 Team Status: Inactive Member Role Status Dates Fam Acevedo DO Primary Care Provider Active Start: January 11, 2024 End: January 11, 2024 Antionette Castaneda APRN [facility] Attending Provider Active Start: January 11, 2024 End: January 11, 2024 [place] Active Start: 2023 End: January 11, 2024 Wrapper Stitcher Relationship Specialty Start Date End Date Unallocated, Rossi Fermin MD [address] [place] [address] PCP - General 09/23/22 Fam Acevedo MD [facility] [email or web address] [address] [place] [address] Referring Physician Orthopaedic Surgery 09/23/22 Wrapper Stitcher Relationship Specialty Start Date End Date Unallocated, Rossi Fermin MD [address] [place] [address] PCP - General 09/23/22 Fam Acevedo MD [facility] [email or web address] [address] [place] [address] Referring Physician Orthopaedic Surgery 09/23/22 Wrapper Stitcher Relationship Specialty Start Date End Date Abundio Mares DDS [address] [place] [address] Resident Dentistry 02/23/20 Wrapper Stitcher Relationship Specialty Start Date End Date Abundio Mares [facility] [address] [place] [address] Resident Dentistry 02/23/20 Wrapper Stitcher Relationship Specialty Start Date End Date Unallocated, Rossi Fermin MD [address] [place] [address] PCP - General 09/23/22 Fam Acevedo MD [facility] [email or web address] [address] [place], [place] [id number] Referring Physician Orthopaedic Surgery 09/23/22 Team Status: Inactive Member Role Status Dates Fam Acevedo DO Primary Care Provider Active Start: July 11, 2024 End: July 11, 2024 Antionette Castaneda APRN [facility] Attending Provider Active Start: July 11, 2024 End: July 11, 2024 Wrapper Stitcher Relationship Specialty Start Date End Date Abundio Mares [address] [address] Resident Dentistry 02/23/20 Wrapper Stitcher Relationship Specialty Start Date End Date Abundio Mares [address] [address] Resident Dentistry 02/23/20 Wrapper Stitcher Relationship Specialty Start Date End Date Abundio Mares [address] [address] Resident Dentistry 02/23/20 Wrapper Stitcher Relationship Specialty Start Date End Date Abundio Mares [address] [address] Resident Dentistry 02/23/20 Wrapper Stitcher Relationship Specialty Start Date End Date Abundio Mares [address] [address] Resident Dentistry 02/23/20 REASON FOR VISIT (unrecogniz ed section and content) Reason Comments Seizures Reason Comments Pre-surgical Evaluation Reason Onset Date Comments PAT 06/05/2024 Informed Consent & Anesthesia consent obtained (unrecognized sect ion and content) No Status Records FoundNo Status Records FoundNo Status Records FoundNo Status Records Found INFORMATION SOURCE (unrecogn ized section and content) DATE CREATED AUTHOR 08/05/2022 [facility] DATE CREATED AUTHOR AUTHOR'S ORGANIZ ATION 01/26/2023 [facility] DATE CREATED AUTHOR AUTHOR'S ORGANIZ ATION 06/02/2024 [facility] DATE CREATED AUTHOR AUTHOR'S ORGANIZ ATION 11/30/2024 [facility] [employer] [facility] Goals (unrecognized section and content) Goals may be documented in a n alternate section Scheduled Active and Recently Administ ered Medications (unrecognized section and content) Medication Order 06/10/2024 06/11/2024 06/12/2024 midazolam (VERSED) 2 MG/ML oral syrup 31.6 mg (rounded from 31.55 mg = 0.5 mg/kg 63.1 kg), Oral, ONCE, 1 dose, On Wed06/12/24 at 0800, Pre-op 0724 (Hold/Not Given - Provider: Quan Anna - Reason: Patient refused) PRN Medication Order 06/10/2024 06/11/2024 06/12/2024 acetaminophen (TYLENOL) tablet 650 mg, Oral, PACU ONCE PRN, Starting on Wed06/12/24 at 0652, Until Wed06/12/24 at 1045, Mild Pain (pain score 1,2,3), PACU Now albuterol (PROVENTIL) (2.5 MG/3ML) 0.083% nebulizer solution 2.5 mg, Nebulization, PACU ONCE PRN, Starting on Wed06/12/24 at 0652, Until Wed06/12/24 at 1045, Wheezing, PACU Now amisulpride (BARHEMSYS) injection 10 mg 10 mg, Intravenous Push, PACU ONCE PRN, Starting on Wed06/12/24 at 0652, Until Wed06/12/24 at 1045, post operative nausea or vomiting, PACU Now bacitracin 500 UNIT/GM ointment (CANCELED) PRN, Starting on Wed06/12/24 at 0815, Until Wed06/12/24 at 0828, Intra-op 0815 (Given - Provid er: Beatris Thompson DDS - Comment: applied to lips at end of procedure) naloxone (NARCAN) 0.4 MG/ML injection 0.4 mg, Intravenous Push, PRN, Starting on Wed06/12/24 at 0652, Until Wed06/12/24 at 1045, Respiratory Rate Less Than 8 for adults and less than 12 for Peds or for suspected overdose, PACU Now oxyCODONE immediate release tablet 5 mg, Oral, PRN, 1 dose, Starting on Wed06/12/24 at 0652, Until Wed06/12/24 at 1045, Moderate Pain (pain score 4,5,6), PACU Now sodium chloride 0.9 % injection 3 mL, Intravenous Push, PRN, Starting on Wed06/12/24 at 0652, Until Wed06/12/24 at 1045, For medication administration and blood draw, PACU Now FOR RECORDS PERTAINING TO PATIENTS WHO ARE [...] BE BASED ON THE PRIMARY CLINICAL RECORDS. [facility]. provides no warranty or guarantee of the accuracy or completeness of information in this document.
[2024-12-04 15:03] LABS: Ammonia 62 umol/L (11-32)
== END 2024-12-04 13:21 | disposition home or self-care (01) ==
LOC: LAB 13:21
PROVIDERS: PCP Family Medicine; Visit Provider Family Medicine
DX: K76.82 Hepatic encephalopathy (principal); Z79.899 Other long term (current) drug therapy
CPT/HCPCS: 36415; 82140

== ENCOUNTER 2025-01-04 09:51 | Outpatient (OUT) | payer MEDICARE, MEDICAID, SELFPAY ==
--- OUTSIDE RECORDS SUMMARY | 2025-01-04 09:54 | XMS_ITS | Encounter Summary ---
Author Organization [facility] Address [address] [id number] Care Team Providers Care Roustabout Crew Pusher Name Role Phone Abundio Mares DDS Unavailable [phone] Encounter Details Date Type Department Care Team (Late st Contact Info) Description 04/18/2020 Abstract PATIENT ACUITY SCORE Social History Tobacco Use Types Packs/Day Years Used Date Smoking Tobacco: Never Assessed Sex and Gender Information Value Date Recorded Sex Assigned at Not on file Legal Sex Male 8:16 AM EST Gender Identity Not on file Sexual Orientation Not on file documented as of this encounter Plan of Treatment Not on file documented as of this encounter Visit Diagnoses Not on filedocumented in this encounter Additional Health Concerns Infection Onset Date Last Indicated Resolved Time COVID-19 Comment:Positive test for SARS-CoV-2 RNA on 05/28/2021: DETECTED 05/28/2021 05/28/2021 06/02/2021 12:01 AM EST documented as of this encounter Care Teams Roustabout Crew Pusher Relationship Specialty Start Date End Date Abundio Mares, DDS [address] [id number] Resident Dentistry 02/23/20 documented as of this encounter
--- OUTSIDE RECORDS SUMMARY | 2025-01-04 09:54 | XMS_ITS | Clinical Summary ---
Author Organization [facility] Address [address] [place], [place] [id number] Care Team Providers Care Dump Truck Driver Name Role Phone Rosario Shaw MD Primary Care Provider [phone] Social History Tobacco Use Types Packs/Day Years Used Date Smoking Tobacco: Never Assessed Sex and Gender Information Value Date Recorded Sex Assigned at Not on file Legal Sex Male 8:53 AM EST Gender Identity Not on file Sexual Orientation Not on file Plan of Treatment Not on file Insurance MEDICARE MEDICAID [place] Care Teams Dump Truck Driver Relationship Specialty Start Date End Date Rosario Shaw MD [address] [place] [address] [facility] - General 07/28/00
--- OUTSIDE RECORDS SUMMARY | 2025-01-04 09:54 | XMS_ITS | Encounter Summary ---
Author Organization [facility] Address [address] [id number] Care Team Providers Care Hand Stripper Name Role Phone Vishnu Abundio DDS Unavailable [phone] Encounter Details Date Type Department Care Team (Late st Contact Info) Description 02/22/2021 Abstract PATIENT ACUITY SCORE Social History Tobacco [...] documented as of this encounter Care Teams Hand Stripper Relationship Specialty Start Date End Date Abundio Mares DDS [address] [id number] Resident Dentistry 02/23/20 documented as of this encounter
--- OUTSIDE RECORDS SUMMARY | 2025-01-04 09:54 | XMS_ITS | Encounter Summary ---
Author Organization [facility] Address [address] [facility] [place] [address] Care Team Providers Care Deaf Teacher Name Role Phone Abundio Mares DDS Unavailable [phone] Encounter Details Date Type Department Care Team (Late st Contact Info) Description 02/21/2020 Prep for Surgery [facility] Dentistry [address] [place] [address] Irina Alegre DDS [address] [facility] [place] [address] Social History Tobacco Use Types Packs/Day Years Used Date Smoking Tobacco: Never Assessed Sex and Gender Information Value Date Recorded Sex Assigned at Not on file Legal Sex Male 8:16 AM EST Gender Identity Not on file Sexual Orientation Not on file documented as of this encounter H&P Notes * Jorge Kaufman DDS - 02/27/2020 11:29 AM EST Dental Consult The Dental Department was asked to consult on this patient by PSE the Attending physician for the patient care is resident care spec , and the Resident assigned to his care is Jorge Kaufman . No chief complaint on file. 40 year old was admited for PSE reports the following symptoms: Dental jew History of present illness: No past medical history on file. Current Outpatient Medications: ??? levothyroxine (SYNTHROID) 100 MCG tablet, , Disp: , Rfl: ??? levothyroxine (SYNTHROID) 50 MCG tablet, , Disp: , Rfl: ??? Linzess 145 MCG CAPS capsule, , Disp: , Rfl: ??? omeprazole (PRILOSEC) 40 MG capsule, , Disp: , Rfl: ??? oxcarbazepine (TRILEPTAL) 300 MG tablet, , Disp: , Rfl: ??? oxcarbazepine (TRILEPTAL) 600 MG tablet, , Disp: , Rfl: ??? divalproex (DEPAKOTE) 250 MG enteric coated tablet, , Disp: , Rfl: ??? felbamate (FELBATOL) 400 MG tablet, , Disp: , Rfl: ??? fluticasone (FLONASE) 50 mcg/act nasal inhaler, , Disp: , Rfl: ??? furosemide (LASIX) 20 MG tablet, , Disp: , Rfl: ??? lactulose 10 g/15 mL oral solution, , Disp: , Rfl: ??? levetiracetam (KEPPRA) 750 MG tablet, , Disp: , Rfl: ??? alendronate (FOSAMAX) 70 MG tablet, , Disp: , Rfl: ??? atorvastatin (LIPITOR) 10 MG tablet, , Disp: , Rfl: ??? cloBAZam (ONFI) 10 MG tablet, , Disp: , Rfl: ??? divalproex (DEPAKOTE SPRINKLE) 125 MG CSDR capsule, , Disp: , Rfl: Allergies Allergen Reactions ??? Promethazine Unknown reaction ??? Amoxicillin-Pot Clavulanate Unknown reaction ??? Phenytoin Sodium Extended Unknown reaction Clinical Exam: Patient is non verbal and hard to examine his teeth I tried to check his assisted by his caregiver who was in the room during the exam Patient has multiple missing teeth and the remaining teeth have wear. 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 I talked to the OR resident to follow up with his LG to obtain th consent Jorge Kaufman DDS Cosigned by Ap Scott DDS at 02/29/2020 9:10 AM EST documented in this encounter Plan of Treatment Not on file documented as of this encounter Visit Diagnoses Diagnosis Mental disability- Primary Unspecified intellectual disabilities documented in this encounter Additional Health Concerns Infection Onset Date Last Indicated Resolved Time Rule-Out COVID-19 02/27/2020 02/27/2020 02/27/2020 10:42 PM EST COVID-19 Comment:Positive test for SARS-CoV-2 RNA on 05/28/2021: DETECTED 05/28/2021 05/28/2021 06/02/2021 12:01 AM EST documented as of this encounter Care Teams Deaf Teacher Relationship Specialty Start Date End Date Abundio Mares DDS [address] [place], [place] [phone] Resident Dentistry 02/23/20 documented as of this encounter
--- OUTSIDE RECORDS SUMMARY | 2025-01-04 09:54 | XMS_ITS | Encounter Summary ---
Author Organization [facility] Address [address] [place] [address] Care Team Providers Care Ditching Machine Engineer Name Role Phone Abundio Mares DDS Unavailable [phone] Encounter Details Date Type Department Care Team (Late st Contact Info) Description 06/12/2024 Abstract [facility] Dentistry [address] [place] [address] Rocco Thompson DDS [address] [place], [place] [id number] Social History Tobacco Use Types Packs/Day Years Used Date Smoking Tobacco: Never Assessed Sex and Gender Information Value Date Recorded Sex Assigned at Not on file Legal Sex Male 8:16 AM EST Gender Identity Not on file Sexual Orientation Not on file documented as of this encounter Plan of Treatment Not on file documented as of this encounter Procedures Procedure Name Priority Date/Time Associated Diagnosis Comments TOPICAL ELINA OF FLUORIDE Routine 06/12/19 25 12:00 AM EST PROPHYLAXIS - ADULT Routine 06/12/2024 1 2:00 AM EST COMPREHENSVE ORAL EVALUATION Routine 06/12/2024 12:00 AM EST documented in this encounter Visit Diagnoses Not on filedocumented in this encounter Care Teams Ditching Machine Engineer Relationship Specialty Start Date End Date Abundio Mares DDS [address] [place], [place] [phone] Resident Dentistry 02/23/20 documented as of this encounter
--- OUTSIDE RECORDS SUMMARY | 2025-01-04 09:54 | XMS_ITS | Clinical Summary ---
Author Organization [facility] Address [address] [facility] [place] [phone] Care Team Providers Care Shot Packer Name Role Phone Unavailable Primary Care Provider [...] series) 02/01/2007 COVID-19 Vaccine (2023-2 5 season) 2024 Influenza Vaccine (#1) 2024 HIB Vaccine Aged [...] patient's age to complete this topic Insurance [place] MEDICARE
--- OUTSIDE RECORDS SUMMARY | 2025-01-04 09:54 | XMS_ITS | Clinical Summary ---
Author Organization [facility] Address [id number] [address] [place] [address] Care Team Providers Care Equities Trader Name Role Phone Andreia Kiser Primary Care Provider [phone] Allergies Active Allergy Reactions Criticality Noted Date [...] history exists Medical Devices Implanted Type Area It Infrastructure Manager Device Identifier Shelf Expiration Date Model / Serial / Lot Vns Therapy Aspiresr Implanted:Qty: 1 on 09/09/2021 by Jared Varner MD at [facility] Left: Chest OTHER 04/03/2023 [id number] / [id number] / Description:BATTERY EXCHANGE Insurance MEDICARE MEDICAID [place] Advance Directives Documents on File Type Date Recorded Patient Roaster Operator Expl anation Living Will 09/09/2021 7:20 AM DNR Care Teams Equities Trader Relationship Specialty Start Date End Date Andreia Kiser DO [address] [place] [address] PCP - General Neurology 07/24/21
--- OUTSIDE RECORDS SUMMARY | 2025-01-04 09:54 | XMS_ITS | Clinical Summary ---
Author Organization [facility] Address [address] [facility], [address] [place] [address] Care Team Providers Care Upsetting Machine Operator Name Role Phone Unavailable Primary Care [...] times daily Active Multiple Vitamins-Minera ls (THERAPEUTIC MULTIVITAMIN-AZ NERALS) tablet Take 1 tablet by mouth [...] on file Medical Devices Implanted Type Area Combination Window Installer Device Identifier Shelf Expiration Date Model / Serial / Lot Generator Aspire Sr - [id number] Implanted:Qty: 1 on 05/12/2016 by Beni Martin MD at [facility] Neuro/Mary nt [employer] 01/06/2018 [id number] / [id number] / Insurance MEDICARE MEDICAID [place]
--- OUTSIDE RECORDS SUMMARY | 2025-01-04 09:54 | XMS_ITS | Encounter Summary ---
Author Organization [facility] Address [address] [facility] [place] [address] Care Team Providers Care Operations Controller Name Role Phone Abundio Mares DDS Unavailable [phone] Encounter Details Date Type Department Care Team (Late st Contact Info) Description 12/11/2024 Abstract [facility] [address] [place] [address] Filomena Alfaro DDS [address] [facility] [place] [address] Social History Tobacco Use Types Packs/Day Years [...] Procedure Name Priority Date/Time Associated Diagnosis Comments LIMITED ORAL EVALUATION Routine 12/12/19 25 12:00 AM EDT documented in this encounter Visit Diagnoses Not on filedocumented in this encounter Care Teams Operations Controller Relationship Specialty Start Date End Date Abundio Mares DDS [address] [place] [address] Resident Dentistry 02/23/20 documented as of this encounter
--- OUTSIDE RECORDS SUMMARY | 2025-01-04 09:54 | XMS_ITS | Encounter Summary ---
Author Organization [facility] Address [address] [place] [address] Care Team Providers Care Fisher Hoop Net Name Role Phone Fam Acevedo MD Unavailable [phone] Unallocated, Noms Provider Primary Care Provi scotty Encounter Details Date Type Department Care Team (Late st Contact Info) Description 11/02/2022 Abstract [facility] [address] [place] [phone] Karina Barreto NP Social History Tobacco Use Types Packs/Day Years [...] on filedocumented in this encounter Care Teams Fisher Hoop Net Relationship Specialty Start Date End Date Unallocated, Noms ProviderMD [facility] [place] [address] PCP - General 09/23/22 Fam Acevedo MD [address] [place] [address] Referring Physician Orthopaedic Surgery 09/23/22 documented as of this encounter
--- OUTSIDE RECORDS SUMMARY | 2025-01-04 09:54 | XMS_ITS | Clinical Summary ---
Author Organization [facility] Address [address] [facility] [place] [address] Care Team Providers Care Ruffling Machine Operator Name Role Phone Abundio Mares DDS Unavailable [phone] Source Comments The following information is NOT included in Care Everywhere downloads:Psychiatric notes, ECG results, Cardiac Rehab notes, Pulmonary Function notes, data from [facility] (includes but not limited toPregnancy data,audiograms, eye exams, pre-surgical evaluation notes, well-child exam data).[facility] Allergies Active Allergy Reactions Criticality Noted Date Comments Amoxicillin-Pot Clavulanate 05/12/19 17 Unknown reaction Pertussis Vaccines 06/02/2024 Phenytoin Sodium Extended 05/12/2016 Unknown reaction Promethazine High 05/12/2016 Unknown reaction Medications atorvastatin (LIPITOR) 10 MG tablet 0 Active Nutritional Supplements (boost) Take by mouth. 1 can tid Active budesonide (PULMICORT) 0.5 MG/2ML nebulizer suspension Use 0.5 mg via nebulizer 2 times daily. Active cloBAZam (ONFI) 10 MG tablet Take 10 mg by mouth 2 times daily. Active docusate sodium (COLACE) 100 MG capsule Take 2 Capsules by mouth in the morning. Active felbamate (FELBATOL) 400 MG tablet Take by mouth 3 times daily. Take 1 tab at 8am, 12pm and 8pm Active fenofibrate (TRICOR) 145 MG tablet Take 145 mg by mouth daily. Active fluticasone (FLONASE) 50 mcg/act nasal inhaler Use 2 Sprays in each nostril daily. Active furosemide (LASIX) 20 MG tablet Take 20 mg by mouth daily. Active glycopyrrolate (ROBINUL) 1 MG tablet Take 1 mg by mouth 2 times daily. Active ipratropium-albute rol (DUO-NEB) 0.5-2.5 (3) MG/3ML nebulizer solution Use 3 mL via nebulizer 3 times a day. Active levETIRAcetam (Keppra) 500 MG tablet Take 500 mg by mouth at bedtime. Active levetiracetam (Keppra) 750 MG tablet Take 2 Tablets by mouth 2 times daily. Active levothyroxine (SYNTHROID) 150 MCG tablet Take 150 mcg by mouth daily. Active linaclotide (Linzess) 145 MCG CAPS capsule Take 145 mcg by mouth daily. Active loratadine (CLARITIN) 10 MG tablet Take 10 mg by mouth daily. Active Magnesium Oxide (MAG-OX 400 ORAL) Take 1 Tablet by mouth daily. Active montelukast (Singulair) 10 MG tablet Take 10 mg by mouth at bedtime. Active omeprazole (PRILOSEC) 40 MG capsule Take 40 mg by mouth daily. Active OXcarbazepine (Trileptal) 300 MG tablet Take 300 mg by mouth 2 times daily. Active oxcarbazepine (TRILEPTAL) 600 MG tablet Take 600 mg by mouth 2 times daily. Active polyethylene glycol (MIRALAX) packet Dissolve 17 g in 8 ounces of liquid and drink daily. Active denosumab (Prolia) 60 MG/ML injection Inject 60 mg under the skin. Every 6 months Active tamsulosin (Flomax) 0.4 MG capsule Take 0.4 mg by mouth daily. Active Cholecalciferol (Vitamin D3) 125 MCG (5000 UT) CAPS Take 125 mcg by mouth daily. Active rifAXIMin (Xifaxan) 550 MG tablet Take 550 mg by mouth 2 times daily. Active albuterol (PROVENTIL) (2.5 MG/3ML) 0.083% nebulizer solution Use 2.5 mg via nebulizer every 4 hours as needed for Wheezing. Active clonazePAM 0.25 MG TBDP Take 1 Tablet by mouth 2 times daily as needed for Other. For cluster of 5 seizures Active diazePAM (DIASTAT) 10 MG rectal gel Insert 1 Each in the rectum as needed for Other (for 3 or more seizures in 2 hours; may repeat in 2 hours as needed). Active senna (SENOKOT) 8.6 MG tablet Take 1 Tablet by mouth 2 times daily as needed for Constipation. Active Lactulose Encephalopathy (Enulose) 10 GM/15ML SOLN Take by mouth. 90 mL at 8am, 12pm and 8pm Active Active Problems Problem Noted Date Diagnosed Date Mental disability 02/22/2020 Overview (02/22/2020): Added automatically from request for surgery [id number] Resolved Problems Problem Noted Date Diagnosed Date Resolved Date Caries 03/28/2024 06/12/2024 Encounters Date Type Department Care Team Description 12/11/2024 10:00 AM EDT Procedure Visit [facility] [address] [place] [address] Filomena Alfaro DDS 12/11/2024 Abstract [facility] [address] [place] [address] Filomena Alfaro DDS from Last 3 Months Immunizations Immunization Administration Dates Next Due Influenza, injectable, quadr ivalent, preservative (CWN=613) 02/10/2017 Influenza, injectable, quadr ivalent, preservative free (QJQ=248) 01/26/2018,02/07/2015 Influenza, injectable, triva lent, preservative (HFF=979) 12/31/2010 Influenza, novel C1T6-49, in jectable, preservative-free (PKB=453) 03/06/2009 Influenza, whole virus (CVX=16) 02/09/2008 Pneumococcal conjugate 13 valent (PCV13) (CVX=13 3) 03/04/2020 Pneumococcal polysaccharide 23 Valent (PPSV23) (CVX=33) 10/23/2014 Social History Tobacco Use Types Packs/Day Years Used Date Smoking Tobacco: Never Assessed Sex and Gender Information Value Date Recorded Sex Assigned at Not on file Legal Sex Male 8:16 AM EST Gender Identity Not on file Sexual Orientation Not on file Last Filed Vital Signs Vital Sign Reading Time Taken Comments Blood Pressure 158/84 06/12/2024 8:27 AM EST Pulse 84 06/12/2024 8:27 AM EST Temperature 36.9 C (98.4 F) 06/12/2024 8:27 AM EST Respiratory Rate 16 06/12/2024 8:27 AM EST Oxygen Saturation 96% 06/12/2024 8:27 AM EST Inhaled Oxygen Concentration - - Weight 63 kg (139 lb) 06/12/2024 7:02 AM EST Height - - Body Mass Index - - Plan of Treatment Health Maintenance Due Date Last Done Comments Prostate Cancer Screening (shared decision making) 1980 HIV Test 02/01/1995 Hepatitis C Antibody 02/01/1998 Tdap Booster 02/01/1998 Hepatitis A (HAV) Vaccine (optional start 19+ years) 02/01/1999 Hepatitis B (HBV) Vaccine (1 of 3 - 19+ 3-dose series) 02/01/1999 HPV Vaccine (optional start 27-45 years) 02/01/2007 Welcome to Medicare Visit (G0402) 05/30/2024 COVID-19 Vaccine ( - season) 2024 Influenza Vaccine (#1) 2024 8, 02/10/2017, 02/07/2015, Additional history exists TSH 06/02/2025 06/02/2024 Cholesterol 08/12/2028 08/13/2023 Shingles (RZV) Vaccine (1 of 2) 02/01/2030 Pneumococcal Vaccine(s) Aged Out 03/04/2020, 10/23 No longer eligible based on patient's age to complete this topic Procedures Procedure Name Priority Date/Time Associated Diagnosis Comments LIMITED ORAL EVALUATION Routine 12/11/2024 12:00 AM EDT TSH Routine 06/02/2024 3:03 PM EST Pre-op evaluation Hypothyroidism, unspecified type from Last 3 Months or Most Recently Relevant to Health Maintenance Results * (ABNORMAL) TSH (06/02/2024 3:03 PM EST) TSH 0.229(L) 0.450 - 5.330 uIU/mL 06/02/2024 4:36 PM EST [facility] Blood BLOOD SPECIMEN / Unknown Venipuncture / Unknown 06/02/2024 3:03 PM EST 06/02/2024 3:57 PM EST us Jose Maria Johnson MD [facility] Final Result [facility] [address] [place] [address] from Last 3 Months or Most Recently Relevant to Health Maintenance Insurance MEDICARE MEDICAID DENTAL-MEDICAID Care Teams Ruffling Machine Operator Relationship Specialty Start Date End Date Abundio Mares, KETAN [address] [phone] Resident Dentistry 02/23/20
--- OUTSIDE RECORDS SUMMARY | 2025-01-04 09:54 | XMS_ITS | Clinical Summary ---
Author Organization [facility] Address [address] [place] [address] Care Team Providers Care Station Usher Name Role Phone Fam Acevedo MD Unavailable [phone] Unallocated, Noms Provider MD Primary Care Provi [...] exists Insurance MEDICARE MEDICAID [place] Care Teams Station Usher Relationship Specialty Start Date End Date Unallocated, [facility]oms ProviderMD [address] [place] [address] PCP - General 09/23/22 Fam Acevedo MD [facility] [address] [place] [address] Referring Physician Orthopaedic Surgery 09/23/22
--- OUTSIDE RECORDS SUMMARY | 2025-01-04 09:56 | XMS_ITS | CCD ---
Author Organization [facility] CliniSyoh Care Team Providers Care Sales Assistant [employer] Name Role Phone FAM ACEVEDO Primary Care [...] Unavailsusan BURGER ., DR FIELDS Consulting Unavailable TROTTMALKA Ordaz Consulting Unavailable RILEY, SOPHIA Consulting Unavailable JBARA, GURJIT Consulting Unavailable ACEVEDO, DR FAM Duran Primary Care Unavailable NADERER, DR CHELE Duran Consulting Unavailable NADERER, DR CHELE Duran Attending Unavailable NADERER, DR CHELE Duran Admitting Unavailable ANICETO GARCIA Consulting Unavailable NIRALI ., EMIL Consulting Unavailable RASHEL, DR FRIAS [...] Unavailable ACEVEDO, DR FAM Duran Attending Unavailable DAVIES WINRM Consulting Unavailable ACEVEDO, DR FAM Duran Admitting [...] KlipperAniceto Consulting Unavailable Arline Levine Attending Unavailable ACEVEDO, FAM Referring Unavailable ACEVEDO, FAM Attending Unavailable ACEVEDO, FAM Admitting Unavailable Abundio Mares DDS Unavailable Fam Acevedo MD Unavailable [phone] Unallocated , [place] Provider Primary Care Provi scotty RASHEL, RODRIGUEZ Attending Unavailable RASHEL, RODRIGUEZ Attending Unavailable RASHEL, RODRIGUEZ Attending Unavailable PROVIDER, UNKNOWN Admitting Unavailable PROVIDER, UNKNOWN Attending Unavailable AL-MASHNI, AP Referring Unavailable PROVIDER, UNKNOWN Admitting Unavailable PROVIDER, UNKNOWN Attending Unavailable BOYD HARRY Attending Unavailable PROVIDER, UNKNOWN Admitting Unavailable PROVIDER, UNKNOWN Admitting Unavailable PROVIDER, UNKNOWN Attending Unavailable PROVIDER, UNKNOWN Admitting Unavailable AL-MASHNI, AP Attending Unavailable PROVIDER, UNKNOWN Admitting Unavailable KAMRYN, BOYD Referring Unavailable PROVIDER, UNKNOWN Attending Unavailable AL-MASHNI, AP Admitting Unavailable AL-MASHNI, AP Attending Unavailable Fam Acevedo DO Primary Care Provider [phone] Marissa Gonzalez APRN Attending Provider Allergies Allergy Classification Reported Allergen(s) Allergy Type Date of Onset Reaction(s) Facility (8 sources) Amoxicillin / Clavulanate; Translations: [amoxicillin-clav ulanate] Drug Allergy Unknown [facility] (18 sources) Phenytoin; Translations: [phenytoin] Drug Allergy 3 Unknown [facility] (20 sources) Promethazine; Translations: [promethazine] Drug Allergy 7 Unknown [facility] (19 sources) Phenytoin; Translations: [PHENYTOIN SODIUM EXTENDED] Drug Allergy 7 Unknown [facility] (19 sources) Amoxicillin-Pot Clavulanate; Translations: [AMOXICILLIN-POT CLAVULANATE] Propensity to adverse reactions to drug 7 Unknown [facility] (8 sources) 4-Aminobenzoic Acid; Translations: [PERTUSSIS VACCINES] Drug Allergy 5 [facility] (1 source) Amoxicillin / Clavulanate Drug Allergy 4 [facility] (1 source) Levamisole Drug Allergy 4 [facility] (1 source) metroNIDAZOLE Drug Allergy [facility] (1 source) Phenytoin Drug Allergy 4 [facility] (1 source) remdesivir (investigational use) Drug allergy (disorder) [facility] (10 sources) Amoxicillin Drug Allergy [address] [facility] (7 sources) Clavulanate Drug Allergy [address] [facility] Medications Current Medications Medication Drug Class(es) Dates Sig (Normalized) Sig (Original) albuterol 0.833 mg/ml / ipratropium bromide 0.167 mg/ml inhalation solution (13 sources) Anticholinergic, beta2-Adrenergic Agonist Start: 03-28-2020 take 1 mL by inhalation three times daily Start: 01-01-2015 take 3 mL by inhalat [...] oral tablet (20 sources) Bisphosphonate Start: 07-04-2015 End: 06-02-2024 take 1 tablet by mouth every week Start: 07-04-2015 alendronate Ta b 70 mg, [...] Start Date: 10/22/21 Status: Ordered Ascorbic Acid (11 sources) Vitamin C Start: 10-22-2021 Vitamin C [...] hydrochloride 0.137 mg/actuat metered dose nasal spray (9 sources) Histamine-1 Receptor Antagonist Start: 06-28-2023 take 1 puff(s) nasal route twice daily Start: 07-04-2015 azelastine alpa al 137 mcg/inh [...] Status: Ordered benzonatate 100 mg oral capsule (7 sources) Non-narcotic Antitussive Start: 03-28-2020 take 1 capsule by mouth every eight hours as needed for cough take 1 capsule by mo [facility] every eight hours Benzonatate 100 MG 1 capsule as needed Orally Three times a day Active budesonide 0.25 mg/ml inhalation suspension (20 sources) Corticosteroid Start: 06-28-2023 take 0.5 mg by inhal ation twice daily Start: 12-16-2022 take 0.5 mg by inhal ation twice daily budesonide 0.5 mg/2 mL Inh Susp 0.5 mg = 2 mL, NEB, BID, # 120 mL, Refills(s) 0 Start Date: 12/16/22 Status: Ordered take 2 mL by inhalat ion twice daily Pulmicort 0.5 MG/2ML 2 ml Inhalation Twice a day Active calcium carbonate 1250 mg / cholecalciferol 200 unt oral tablet (11 sources) Vitamin D Start: 03-28-2020 take 1 tablet by rebecca th twice daily take 1 tablet by rebecca th in [...] day Active cholecalciferol 0.125 mg oral capsule (6 sources) Vitamin D take 1 capsule by mouth once daily Cholecalciferol (Vitamin D3) 125 MCG (5000 UT) CAPS Take 125 mcg by mouth daily. Active cloBAZam 10 mg oral tablet (20 sources) Benzodiazepine Start: 07-04-19 End: 06-02-19 25 take 1 tablet by mouth twice daily clonazePAM 0.25 mg disintegrating oral tablet (13 sources) Benzodiazepine Start: 03-28-20 Clonazepam Active 0.25 MG TRANSLINGU Twice daily March 28, 2020 1:00am Start: 03-28-2020 Cough and Chest Congestion (4 sources) Start: 10-22-2021 Cough and Ches t Congestion Refill(s) 0 Start Date: 10/22/21 Status: Ordered 1 ml denosumab 60 mg/ml prefilled syringe (6 sources) RANK Ligand Inhibitor denosumab (Prolia) 60 MG/ML injection Inject 60 mg under the skin. Every 6 months Active diazePAM 10 mg oral tablet (20 sources) Benzodiazepine Start: 10-22-2021 take 1 mg rectal route once Diastat AcuDial adult mg, Rectal, Once, Refills(s) 0 Start Date: 10/22/21 Status: Ordered Start: 03-28-2020 End: 07-06-2023 take 1 tablet rectal route every two hours as needed Start: 03-28-2020 End: 07-06-2023 apply 10 mg rectal route every two hours Diazepam Active 5 MG PO Q2H July 06, 2023 10:24am 10MG RECTAL GEL, PATIENT TAKES IT NV - wont let me save without route. [...] Start: 10-22-2021 take 1 capsule by mo [facility] twice daily as needed for constipation docusate sodium 100 mg Cap 100 mg = 1 cap(s), Oral, BID, PRN for constipation, # 20 cap(s), Refills(s) 0 Start Date: 10/22/21 Status: Ordered Start: 03-28-2020 take 2 capsules by m outh once daily in the morning Start: 03-28-2020 take 200 mg by mouth once daily in the morning Docusate Sodium Active 200 MG PO Every morning March 28, 2020 1:00am take 1 capsule by mo [facility] every twenty-four hours Docusate Sodium 100 MG [...] sources) Anti-epileptic Agent Start: 02-23-2020 End: 06-02-2024 take 1 tablet by mouth three times daily felbamate (Felba ela) 400 MG tablet 1 (one) time each day at the same time Active fenofibrate 145 mg oral tablet (16 sources) Peroxisome Proliferator Receptor alpha Agonist Start: 10-22-2021 take 1 mg by mouth once daily fenofibrate 145 mg Tab mg tab(s), Oral, Daily, Refills(s) 0 Start Date: 10/22/21 Status: Ordered fluticasone furoate 0.05 MG/ACTUAT Dry Powder Inhaler (20 sources) Corticosteroid Start: 10-22-2021 fluticasone furoate 50 mcg inhalation powder Inhalation, q24hr, Refills(s) 0 Start Date: 10/22/21 Status: Ordered Start: 03-28-2020 Start: 02-26-2020 End: 06-02-2024 fluticasone (FLONASE) 50 [...] sources) Loop Diuretic Start: 02-23-2020 End: 06-02-2024 take 1 tablet by mouth once daily glycopyrrolate 1 mg oral tablet (20 sources) Start: 10-22-2021 take 1 tablet by mouth three times daily glycopyrrolate 1 mg oral tablet mg tab(s), Oral, TID, Refills(s) 0 Start Date: 10/22/21 Status: Ordered Start: 03-28-2020 take 1 tablet by mouth twice d aily guaiFENesin 400 mg oral tabl et (5 sources) Start: 12-16-2022 guaifenesin 40 0 mg oral tablet Refills(s) 0 Start Date: 12/16/22 Status: Ordered Start: 03-28-2020 take 1 tablet by rebecca th twice daily, then take 1 tablet by mouth every twelve hours hydrocortisone 25 mg/ml rectal cream (1 source) [...] Date: 10/22/21 Status: Ordered ketoconazole 20 mg/ml topica l cream (8 sources) Azole Antifungal Start: 03-28-2020 Start: 07-05-2015 Ketoconazole A ctive 1 APPLIC TOPICAL Twice daily March 28, 2020 1:00am lactulose 667 mg/ml oral solution (20 sources) Osmotic Laxative Start: 10-22-2021 Enulose 10 g/ 15 mL oral and rectal liquid gm mL, Refills(s) 0 Start Date: 10/22/21 Status: Ordered Start: 03-28-2020 take 1 mL by mouth f our times daily Start: 02-19-2020 End: 06-02-2024 lactulose 10 g/15 [...] a day Active levETIRAcetam 750 mg oral ta blet (20 sources) Start: 03-28-2020 take 2 tablets by mo uth twice daily Start: 03-28-2020 take 1500 mg by mout [...] oral tablet (20 sources) l-Thyroxine Start: 06-28-2023 Start: 06-28-2023 take 150 ug by mouth once toby y Levothyroxine Active 150 MCG PO Daily June 28, 2023 1:10pm Start: 11-10-2022 levothyroxine (Synthroid, Levoxyl) 150 MCG tablet 11/10/2022 Active Start: 02-23-2020 End: 06-02-2024 take 1 tablet by mouth once daily at bedtime Levothyroxine 100 mcg tablet Discontinued 100 MCG PO Daily at bedtime March 28, 2020 1:00am June 28, 2023 1:21pm Start: 02-23-2020 End: 06-02-2024 take 1 tablet by mouth once daily [...] 12/16/22 Status: Ordered Start: 02-23-2020 End: 06-02-2024 take 1 capsule by mouth once daily in the morning Start: 07-05-2015 Linzess 145 mi crogram, Oral, Daily, PRN Constipation, Refills(s) 0 Start Date: 07/05/15 Status: Ordered Linzess 145 145m cg 1 PO Every AM Active loratadine 10 mg oral tablet (7 sources) Start: 12-16-2022 loratadine 10 mg Tab Start Date: 12/16/22 Status: Ordered 24 hr loratadine 10 mg / pseudoephedrine sulfate 240 mg extended release oral tablet (11 sources) alpha-Adrenergi c Agonist Start: 03-28-2020 End: 06-28-2023 take 1 tablet by mouth once daily as needed, then take 1 tablet by mouth every twenty-four hours as needed magnesium oxide 400 mg oral tablet (20 sources) Start: 03-28-2020 take 1 tablet by mouth once daily take 1 tablet by mouth once toby y Magnesium Oxide (MAG-OX 400 ORAL) Take 1 Tablet by mouth daily. Active melatonin 5 mg oral tablet (8 sources) Start: 03-28-2020 take 1 tablet by mouth once daily at bedtime metoprolol tartrate 50 mg oral tablet (7 sources) beta-Adrenergic Rachelle Start: 06-28-2023 take 1 tablet by mouth twice daily take 1 tablet by rebecca th every twelve hours Metoprolol Tartrate 50 MG 1 tablet Orall y Twice a day Active Miconazole (3 sources) Azole Antifungal Start: 10-22-2021 Umesh Antifung al Topical, BID, Refill(s) 0 Start Date: 10/22/21 Status: Ordered montelukast 10 mg oral tablet (17 sources) Leukotriene Receptor Antagonist Start: 03-28-2020 take 1 tablet by mouth once daily at bedtime Multivitamin preparation (5 sources) Start: 03-28-2020 take 1 tablet by mouth once daily Multivitamin Active 1 TAB PO Daily March 28, 2020 1:00am Multivitamin Ora lly Active Multivitamin Tablet (2 sources) Start: 03-28-2020 take 1 tablet by mouth once da rasheeda Start: 03-28-2020 take 1 tablet by rebecca th once daily Multivitamin Tablet Active 1 TAB [...] Ordered Normal saline (7 sources) Start: 07-05-2015 Hernando Saline Alpa al Gel Nasal, TID, Refill(s) 0, Dry nasal passages Start Date: 07/05/15 Status: Ordered Hernando Saline Nasal Gel Nasally Active Nutritional Supplements (boost) (6 sources) Nutritional Supplements (boost) Take by mouth. 1 can tid Active omeprazole 40 mg delayed release oral capsule (20 sources) Proton Pump Inhibitor Start: 0 End: 5 take 1 capsule by mouth once daily OXcarbazepine 600 mg oral tablet (20 sources) Anti-epileptic Agent Start: 4 Start: 06-28-2023 take 300 mg by mouth twice daily Oxcarbazepine Active 300 MG PO Twice daily June 28, 2023 1:14pm Start: 02-23-2020 End: 06-02-2024 take 1 tablet by mouth twice daily Oxcarbazepine 300 mg tablet Discontinued 300 MG PO Twice daily March 28, 2020 1:00am June 28, 2023 1:22pm Start: 02-23-2020 End: 06-02-2024 take 1 tablet by mouth twice daily [...] bid, Prophylaxis Start Date: 07/05/15 Status: Ordered [id number] oral powder for reconstitution (1 source) Start: 023 [id number] oral powder for reconstitution Start Date: 12/16/22 Status: Ordered rifAXIMin 550 mg oral tablet (7 sources) Rifamycin Antibacterial Start: take 1 tablet by [...] Ordered sennosides, assisted 8.6 mg oral tablet (10 sources) Start: take 2 tablets by mouth twice daily as needed take 1 tablet by rebecca th twice daily as needed for constipation senna (SENOKOT) 8.6 MG tablet Take 1 Tablet by mouth 2 times daily as needed for Constipation. Active sertraline 25 mg oral tablet (7 sources) Serotonin Reuptake Inhibitor Start: 06-28-2023 take 1 tablet by mouth once daily take 1 tablet by rebecca th every twenty-four hours Sertraline HCl 25 MG 1 tablet Orally Onc e a day Active Sodium Chloride-Aloe Vera (A yr Saline) gel (4 sources) Start: 06-28-2023 Start: 06-28-2023 Sodium Chlorid e-Aloe Vera (Hernando Saline) gel Active 1 APPLIC TOPICAL Daily at bedtime as needed June 28, 2023 12:00am Start: 06-28-2023 Sodium Chlorid e-Aloe Vera (Hernando Saline) gel Active 1 APPLIC TOPICAL Daily at bedtime June 28, 2023 12:00am tamsulosin hydrochloride 0.4 mg oral capsule (17 sources) alpha-Adrenergic Rachelle Start: 07-04-2015 take 1 capsule by mouth once daily Vitamin D3 5000 intl units oral capsule (1 source) Start: 12-16-2022 Vitamin D3 5000 intl units oral capsule Start Date: 12/16/22 Status: Ordered Completed/Discontinued Medications Medication Drug Class(es) Dates Sig (Normalized) Sig (Original) acetaminophen 325 mg oral tablet (13 sources) Start: 06-12-2024 End: 06-12-2024 650 mg, Oral, PACU ONCE PRN, Starting on Wed06/12/24 at 0652, Until 06/12/24 at 1045, Mild Pain (pain score 1,2,3), PACU Now Start: 12-16-2022 acetaminophen Refills(s) 0 Start Date: 12/16/22 Status: Ordered Start: 03-28-2020 Start: 03-28-2020 Acetaminophen Active 650 MG NV EVERY 4-6 HOURS March 28, 2020 1:00am [...] hrs Active acetylcysteine 100 mg/ml inhalation solution (4 sources) Antidote, Mucolytic, Antidote for Acetaminophen Overdose [...] 2023 10:22am albuterol 0.83 mg/ml inhalation solution (20 sources) beta2-Adrenergic Agonist Start: 06-12-2024 End: 06-12-2024 2.5 mg, Nebulization, PACU ONCE PRN, Starting on Wed06/12/24 at 0652, Until Wed06/12/24 at 1045, Wheezing, PACU Now Start: 06-28-2023 take 2.5 mg by inhal ation four times daily as needed for chronic obstructive pulmonary disease Start: 03-28-2020 End: 06-28-2023 take 2.5 mg [...] 4 hours as needed for Wheezing. Active 2 ml amisulpride 2.5 mg/ml injection [...] 7 DAYS. 21 Capsule 02/29/2020 06/02/2024 Discontinued levoFLOXacin 750 mg oral tablet (4 sources) Quinolone Antimicrobial Start: 03-28-2020 End: 06-28-2023 [...] or for suspected overdose, PACU Now oxyCODONE hydrochloride 5 mg oral tablet (1 source) Opioid Agonist Start: 06-12-2024 End: 06-12-2024 5 mg, Oral, PRN, 1 dose, Starting on Wed06/12/24 at 0652, Until Wed06/12/24 at 1045, Moderate Pain (pain score 4,5,6), PACU Now polyethylene glycol 3350 23653 mg powder for oral solution (11 sources) Osmotic Laxative Start: 07-05-2015 End: 07-06-2023 Polyethylene Glycol 3350 (Clearlax) 17 gram/dose Powder Discontinued 17 GM PO Daily March 28, 2020 1:00am July 06, 2023 10:26am Polyethylene Glycol 3350 (Clearlax) 17 gram/dose Powder (3 sources) Start: 03-28-2020 End: 07-06-2023 Polyethylene Glycol 3350 (Clearlax) 17 gram/dose Powder Discontinued 17 GM PO Daily March 28, 2020 1:00am July 06, 2023 10:26am Start: 03-28-2020 Polyethylene G lycol 3350 (Clearlax) 17 gram/dose Powder Active 17 GM PO Daily March 28, 2020 1:00am predniSONE 20 mg oral tablet (4 sources) Start: 03-28-2020 End: 07-06-2023 take 1 [...] Chloride-Aloe Vera (Saline Nasal (Aloe Vera)) Gel (4 sources) Start: 03-28-2020 End: 06-28-2023 Sodium Chloride-Aloe [...] 28, 2023 1:22pm Start: 02-23-2020 End: 06-02-2024 take 1 tablet by mouth twice daily Start: 02-23-2020 End: 06-02-2024 take 1 capsule by mouth twice daily [...] Episodic/Chronic Attention-deficit, conduct, and disruptive behavior disorders (8 sources) Attention deficit hyperactivity disorder, predominantly inattentive [...] Chronic Chronic obstructive pulmonary disease and bronchiectasis (17 sources) Chronic obstructive lung disease; Translations: [Chronic [...] [Seizure disorder] Onset: 04-22-2022 Chronic Esophageal disorders (5 sources) Gastro-esophageal reflux disease without esophagitis; Translations: [...] 06-30-2013 Chronic Other aftercare (5 sources) Other marketing database consultant (current) drug therapy; Translations: [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 EHR Cmte Other nutritional; endocrine; and metabolic disorders (5 sources) Disorder of urea cycle metabolism, unspecified; 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] Onset: 10-31-2021 Chronic Other upper respiratory disease (4 sources) Seasonal allergy; Translations: [Other seasonal allergic rhinitis] 07-06-2023 Chronic Other upper respiratory infections (7 sources) Chronic sinusitis; Translations: [Chronic sinusitis, unspecified] [...] specified sepsis] Onset: 07-29-2022 Episodic Thyroid disorders (12 sources) Hypothyroidism; Translations: [Hypothyroidism, unspecified] Onset: 08-05-2022 [...] 09-29-2021 Episodic Disorders of teeth and jaw (13 sources) Dental caries; Translations: [Dental caries, unspecified] [...] Value Interpretation Reference Range Facility Progress Noteson 12-11-2024 Exit Booth Agent Authentication Interface Message Text ----- Wednesday, December 11, 2024 at 11:07:03 AM ----- ----- Provider: [id number] Resident Flaco -- Clinic: [place] ----- LIMITED EXAM Patient presents for Scheduled appointment with a follow up. Reviewed patient's medical history. Patient has a history of: . Autistic non verbal No contraindications, patient is ready for treatment. Clinical exam was completed. Could not be completed since the patient is uncooperative Clinical Exam Finding None Radiographs taken today were: NONE Discussed the medical necessity of the problem with the patient. Case is not urgent. Patient will schedule for definitive treatment. Guardian mother Katia Lopez. [phone]. [facility] [phone] [phone] ( [facility]t) Contact Information [phone] (Home Phone) Alternate Certified Travel Counselor RUTH (Other) NOTE: Scheduled for OR ----- Signed on Wednesday, December 11, 2024 at 12:38:13 PM ----- ----- Provider: [id number] Jacobs DMD -- Clinic: [place] ----- Normal [facility] Anesthesia Postprocedure Lucia luationon 06-12-2024 Exit Booth Agent Authentication Interface Message Text Anesthesia Postoperative Assessment: [...] EVENTS: No notable events documented. Normal [facility] Anesthesia Preprocedure Eval uationon 06-12-2024 Exit Booth Agent Authentication Interface Message Text ASA: 3 No [...] abnormality Abnormal ECG Confirmed by JOSSELIN NIETO ([id number]) on 06/05/2024 9:00:17 PM GI/Hepatic/Renal (+) GERD [...] were discussed with the patient and/or legal software support representative. The risks, benefits and alternatives were reviewed. Questions regarding anesthesia were answered. Patient and/or legal software support representative knows such anesthetics and procedures may be performed by Resident physicians, Certified Anesthesiologist Assistants, or Certified Nurse Anesthetists under the supervision of a physician. The patient /or the patient's legal software support representative agree with the plan for anesthesia. Comment: Consent obtained from patient's mother over the phone. Also explained what to expect from anesthesia to patient's caregiver from intermediate [employer] Social History Socioeconomic History Marital status: Single Social History Narrative Resident at [facility]. Mom is guardian CBC 06/02/2024 [...] Vitamin D3 125 mcg, DAILY Normal [facility] 06-12-2024 Exit Booth Agent Authentication Interface Message Text Patient taken to [...] 1 extraction; Surgeon: Ap Scott DDS; [facility] [place]; Service: Dental Allergies: Promethazine, Amoxicillin-pot clavulanate, Pertussis vaccines, and Phenytoin sodium extended Basic Operating Room Facts: Surgeon(s): pA Scott DDS Anesthesiologist: Blake Green MD CAA: [...] Removed at Discharge: Removed 06/12/24824 Location (cm) 06/12/24745 Measured from: Naris 06/12/24745 Secured via: [...] the report was received. ILIANA Clements [facility] Blood Attestationon 06-12-19 Exit Booth Agent Authentication Interface Message Text Blood Attestation: REFUSAL OF BLOOD OR BLOOD COMPONENTS: The patient and/or legal software support representative has been explained the need for transfusion of blood and/or blood components. The risks, benefits and alternatives have been explained. Questions concerning the transfusion of blood or blood components have been asked and answered. The patient and/or legal software support representative have REFUSED TO CONSENT transfusion of blood or blood products. PER PATIENT'S MOTHER Normal [facility] Brief Operative Noteon 06-12 Exit Booth Agent Authentication Interface Message Text Brief Operative Note [facility] OR 3 Parish Lopez 44 year old male Surgical Contact Serial Number: [id number] Preoperative Diagnosis: Pre-op Diagnosis * Caries [K02.9] Mental disability COPD Hyperthyroidism Seizures HLD GERD Postoperative Diagnosis: Mental disability COPD Hyperthyroidism Seizures HLD GERD Procedures: Full mouth x-rays [82321] Comprehensive Exam [26165] Dental prophylaxis [29570] Surgeon(s): Surgeon(s): Ap Scott DDS Staff: Food Safety Director Nurse: Felisha Moore Anesthesia: General Anesthesiologist: Blake [...] Thompson DDS 06/12/2024 7:03 AM Normal [facility] OP Noteon 06-12-2024 Exit Booth Agent Authentication Interface Message Text Operative Note PHE OR 3 Parish Lopez 44 year old male Surgical Contact Serial Number: [id number] Preoperative Diagnosis: Pre-op Diagnosis * Caries [K02.9] Mental disability COPD Hyperthyroidism Seizures HLD GERD Postoperative Diagnosis: Mental Disability COPD Hyperthyroidism Seizures HLD GERD Procedures: Full mouth x-rays [00190] Comprehensive Exam [27860] Dental prophylaxis [13399] Surgeon: Ap Scott DDS Sand Mixer Machine Surgeon: Hansel Burgess DDS; Beatris Thompson DMD [...] Thompson DDS 06/12/2024 7:07 AM Normal [facility] Progress Noteson 06-12-2024 Exit Booth Agent Authentication Interface Message Text ----- Wednesday, June 12, 2024 at 8:41:56 AM ----- ----- Provider: [id number] - Ap Adams DDS -- Clinic: [facility] ----- [facility], pt is ready for tx. [place], only scaling was done. __ Operative Note [facility] OR 3 Parish Lopez 44 year old male Surgical Contact Serial Number: [id number] Preoperative Diagnosis: Pre-op Diagnosis * Caries [K02.9] Mental disability COPD Hyperthyroidism Seizures HLD GERD Postoperative Diagnosis: Mental Disability COPD Hyperthyroidism Seizures HLD GERD Procedures: Full mouth x-rays [71892] Comprehensive Exam [49479] Dental prophylaxis [63345] Surgeon: Ap Scott DDS Sand Mixer Machine Surgeon: Hansel Burgess DDS; Beatris Thompson DMD [...] DDS -- Clinic: [facility] ----- [facility] - PERFORMon 05-20 Diagnosis Sinus tachycardia Possible Left atrial enlargement Nonspecific T wave abnormality Abnormal ECG Confirmed by JOSSELIN NIETO ([id number]) on 06/05/2024 9:00:17 PM [facility] P wave [facility] by EKG 122 BPM [facility] P wave axis 21 degrees [facility] P-R Interval 156 ms [facility] Q-T interval 302 ms [facility] Q-T interval corrected 430 ms [facility] QRS axis 0 degrees [facility] QRS duration 78 ms [facility] T wave axis -4 degrees [facility] Telephone Encounteron 2024 Exit Booth Agent Authentication Interface Message Text Informed Consent for dental surgery AND Anesthesia consent obtained and scanned into [facility]. Scheduled for surgery 06/12/2024. [facility] Addendum Noteon 06-02-2024 Exit Booth Agent Authentication Interface Message Text Addended by: BOYD HARRY on: 06/02/2024 05:54 PM Modules accepted: Orders Normal [facility] BASIC METABOLIC PANELon 05-20 Anion gap [Moles/Vol] 18 mmol/L Normal 10-20 [facility] Comment on above: Performed By: #### C H8 ####[facility] [id number] [place], [place], Calcium [Mass/Vol] 10.5 mg/dL High 8.6-10.3 The [facility] Comment on above: Performed By: #### C H8 ####[facility] [id number] [place], [place], Chloride [Moles/Vol] 109 mmol/L High 98-107 The [facility] Comment on above: Performed By: #### C H8 ####[facility] [id number] [place], CO2 [Moles/Vol] 22 mmol/L Normal 21-31 The [facility] Comment on above: Performed By: #### C H8 ####[facility] [id number] [place], Creatinine [Mass/Vol] 0.61 mg/dL Low 0.70-1.[address] [facility] Comment on above: Performed By: #### C H8 ####S PATHOLOGY [id number] [place], ESTIMATED GFR (CKD-EPI) 121 mL/min/1.73sqm Normal >=60 The [facility] Comment on above: Result Comment: [...] Inclusion of Race in Diagnosing Kidney Disease. [place] Journal of Kidney Diseases 2021;79(2):268-88.e1. 2. N Engl J Med 1 Vol. 385 Issue 19 Pages 8071-4879 Performed By: #### C H8 ####S PATHOLOGY [id number] [place], [place], Glucose [Mass/Vol] 126 mg/dL High 74-109 [facility] Comment on above: Performed By: #### C H8 ####S PATHOLOGY [id number] [place], Potassium [Moles/Vol] 4.8 mmol/L Normal 3.5-5.0 The [facility] Comment on above: Performed By: #### C H8 ####S PATHOLOGY [id number] [place], Sodium [Moles/Vol] 144 mmol/L Normal 136-145 The [facility] Comment on above: Performed By: #### C H8 ####S PATHOLOGY [id number] [place], Urea nitrogen [Mass/Vol] 14 mg/dL Normal 7-25 [facility] Comment on above: Performed By: #### C H8 ####S PATHOLOGY [id number] [place], [place], Basic metabolic 2000 panelon 06-02-2024 Anion [...] CKD-EPI (S/P/Bld) [Vol rate/Area] 121 - PINF [facility] Comment on above: 2020 CKD EPI Equatio n using Creatinine without Race Comment: Estimated glomerular filtration rate (eGFR) is calculated without a race coefficient. Values should be interpreted in the context of the patient's full clinical presentation. Reference: 1. Ata C, Bia M, Betaa DC, et al.. A Unifying Approach for GFR Estimation: Recommendations of the NKF-ASN Task Force on Reassessing the Inclusion of Race in Diagnosing Kidney Disease. [place] Journal of Kidney Diseases 202;79(2):268-88.e1. 2. N Engl J Med 1 Vol. 385 Issue 19 Pages 4734-7559 Glucose [Mass/Vol] 126 mg/dL High 74 - 109 mg/dL [facility] Interpretation and review of laboratory results Abnormal [facility] Potassium [Moles/Vol] 4.8 mmol/L 3.5 - 5.0 mmol/L [facility] Sodium [Moles/Vol] 144 mmol/L 136 - 145 mmol/L [facility] Urea nitrogen [Mass/Vol] 14 mg/dL 7 - 25 mg/dL [facility] CBC panel Auto (Bld)on 06-02 Erythrocyte distribution width (RBC) [Ratio] 14.5 % 11.5 - 14.5 % [facility] Hematocrit (Bld) [Volume fraction] 42.5 % 41.0 - 53.0 % [facility] Hemoglobin (Bld) [Mass/Vol] 13.8 g/dL Low 13.9 - 16.3 g/dL [facility] Interpretation and review of laboratory results Abnormal [facility] MCH (RBC) [Entitic mass] 30.7 pg 26.0 - 34.0 pg [facility] MCHC (RBC) [Mass/Vol] 32.4 g/dL 32.0 - 35.9 g/dL [facility] MCV (RBC) [Entitic vol] 95 fL 80 - 100 fL [facility] Platelet mean volume (Bld) [Entitic vol] 9.3 fL 7.5 - 11.2 fL [facility] Plate[facility] (Bld) [#/Vol] 419 10*3/uL High 150 - 400 K/uL [facility] RBC (Bld) [#/Vol] 4.49 10*6/uL [facility] WBC (Bld) [#/Vol] 7 10*3/uL 4.5 - 11.5 K/uL [facility] COMPLETE BLOOD COUNTon 06-02 Erythrocyte distribution width (RBC) [Ratio] 14.5 % Normal 11.5-14.5 The [facility] Comment on above: Performed By: #### C BC #### [facility] [address] [place] [address], Hematocrit (Bld) [Volume fraction] 42.5 % Normal 41.0-53.0 The [facility] Comment on above: Performed By: #### C BC #### [facility] [address] [place] [address], Hemoglobin (Bld) [Mass/Vol] 13.8 g/dL Low 13.9-16.3 [facility] Comment on above: Performed By: #### C BC #### [facility] [address] [place] [address], MCH (RBC) [Entitic mass] 30.7 pg Normal 26.0-34.0 [facility] Comment on above: Performed By: #### C BC #### [facility] [address] [place] [address], MCHC (RBC) [Mass/Vol] 32.4 g/dL Normal 32.0-35.9 [facility] Comment on above: Performed By: #### C BC #### [facility] [address] [place] [address], MCV (RBC) [Entitic vol] 95 fL Normal 80-100 [facility] Comment on above: Performed By: #### C BC #### [facility] [address] [place], [place], Platelet mean volume (Bld) [Entitic vol] 9.3 fL Normal 7.5-11.2 The [facility] Comment on above: Performed By: #### C BC #### [facility] [address] [place], [place], Platelets (Bld) [#/Vol] 419 10*3/uL High 150-400 [facility] Comment on above: Performed By: #### C BC #### [facility] [address] [place], [place], RBC (Bld) [#/Vol] 4.49 10*6/uL Low 4.50-5.90 The [facility] Comment on above: Performed By: #### C BC #### [facility] [address] [place], [place], WBC (Bld) [#/Vol] 7.0 10*3/uL Normal 4.5-11.5 The [facility] Comment on above: Performed By: #### C BC #### [facility] [address] [place], [place], Patient Instructionson 06-02 Exit Booth Agent Authentication Interface Message Text RECOMMENDATIONS: Patient was [...] before surgery Boyd Harry MD Normal [facility] Progress Noteson 06-02-2024 Exit Booth Agent Authentication Interface Message Text Blood pressure 154/73, [...] 1 extraction; Surgeon: Ap Scott DDS; [facility]: [facility]; Service: Dental Pertinent Social [...] fever, chills, night sweats, and weight loss [employer]IATE: h/o Seizur (more content not included)... Normal [facility] THYROXINE (T4), FREEon 06-02 Free T4 [Mass/Vol] 0.7 ng/dL 0.61 - 1. 12 ng/dL [facility] Interpretation and review of laboratory results Normal [facility] T4 F 0.70 ng/dL Normal 0.61-1.12 [facility] Comment on above: Performed By: #### T SH HS, T4 F #### [facility] [address] [place], [place], TSHon 06-02-2024 Interpretation and review of laboratory results Abnormal [facility] TSH Qn 0.229 m[IU]/L Low [facility] TSH 0.229 uIU/mL Low 0.450-5.330 [facility] Comment on above: Performed By: #### T SH HS, T4 F #### [facility] [address] [place], [place], XR Chest PA and Lateralon Greta [...] images and agree with the resident's interpretation. [employer] Rad[facility] Study observation (narrative) [employer] XR Chest PA and LateralOrder ed By: Greta Heck on 06-02-2024 [employer] Work Phone: No Panel Informationon 05-31 [employer] Progress Noteson 04-25-2024 Exit Booth Agent Authentication Interface Message Text Parent/guardian/patie nt was contacted for PSE AND OR scheduled -- confirmed information with mom, also informed mom importance of receiving PSE call -- if not received surgery will be canceled. 06/12/2024 ----- Thursday, April 25, 2024 at 2:35:00 PM ----- ----- Provider: PEARL Ace, Dental-Keyboard Teacher -- Clinic: [place] ----- Normal [facility] [employer] [facility] No Panel Informationon 03-13 As in note [facility] Ambulatory Visit Summaryon 0 12-16-2022 Ambulatory Visit [...] (oxcarbazepine 600 mg Tab) polyethylene glycol 3350 (SFJ1820 oral powder for reconstitution) polyethylene glycol 3350 (polyethylene glycol 3350 17 gram packet) rifaximin (Xifaxan 550 mg oral tablet) senna (Senna 8.6 mg oral tablet) sodium chloride nasal (Hernando Saline Nasal Gel) tamsulosin Discharge Vitals Temperature [...] Application T (more content not included)... Normal [facility] Patient Educationon 12-17-19 23 Patient Education [...] Reviewed: 08/14/2021 Elsevier Patient Education ? 2022 [employer] [facility] Physician Orderon 12-16-2022 Physician Order [id number] .[id number]:127 Normal [facility] RAD - Ultrasound Reporton RAD - Ultrasound Report [id number] .[id number]:127 Normal [facility] Urology Office/Clinic Noteon 12-16-2022 Urology Office/Clinic [...] retractile testes. Pt currently resides in [facility]. CBC/CMP 08/01/22 1. Retractile testis [...] Eye-Both, QID atorvastatin, 10 mg, Oral, Daily Hernando Saline Nasal Gel, Nasal, TID azelastine nasal 137 mcg/inh spray, 2 spray(s), Nasal, As (more content not included)... Normal [facility] Comment on above: Result Comment: Elec [...] by: GUANAKITO MEADE Date: 2022-08-04 18:50 Normal [facility] AMMONIAon 08-02-2022 Ammonia (P) [Moles/Vol] 87 umol/L Critically high - [facility] Comment on above: Performed By: #### B MP #### [facility] [address] [place] [address] Dr. Deepak Greenfield AMMONIAon 08-01-2022 Ammonia (P) [Moles/Vol] 42 umol/L Critically high 11-32 [facility] Comment on above: Performed By: #### M G, CMP #### [facility] [address] [place] [address] Dr. Deepak Greenfield CBC W MANUAL DIFFon 08-02-19 23 ATYPICAL LYMPH # 0.41 103/ul Normal [facility] Comment on above: Performed By: #### M G, CMP #### [facility] [address] [place] [address] Dr. Deepak Greenfield ATYPICAL LYMPH % 7 % Normal [facility] Comment on above: Performed By: #### M G, CMP #### [facility] [address] [place] [address] Dr. Deepak Greenfield BAND # 0.0 103/ul Normal 0.0-0.3 [facility] Comment on above: Performed By: #### M G, CMP #### [facility] [address] [place] [address] Dr. Deepak Greenfield BAND % 0 % Normal 0-5 [facility] Comment on above: Performed By: #### M G, CMP #### [facility] [address] [place] [address] Dr. Deeapk Greenfield BASOM # 0.00 103/ul Normal 0.00-0.10 [facility] Comment on above: Performed By: #### M G, CMP #### [facility] [address] [place] [address] Dr. Deepak Greenfield BASOM % 0.0 % Critically low 0.2-2.0 [facility] Comment on above: Performed By: #### M G, CMP #### [facility] [address] [place] [address] Dr. Deepak Greenfield BLAST # Normal [facility] Comment on above: Performed By: #### M G, CMP #### [facility] [address] [place] [address] Dr. Deepak Greenfield BLAST % Normal [facility] Comment on above: Performed By: #### M G, CMP #### [facility] [address] [address] [address] Deepak Greenfield CORRECTED WBC Normal 4.0-11.0 The [facility] Comment on above: Performed By: #### M G, CMP #### [facility] [address] [address] [address] Deepak Greenfield EOS # 0.06 103/ul Normal 0.00-0.70 [facility] Comment on above: Performed By: #### M G, CMP #### [facility] [address] [place] [address] [address] Deepak Greenfield EOS% 1.0 % Normal 0.9-7.0 [facility] Comment on above: Performed By: #### M G, CMP #### [facility] [address] [place] [address] Dr. Deepak Greenfield HCT 37.6 % Critically low 42.0-54.0 [facility] Comment on above: Performed By: #### M G, CMP #### [facility] [address] [place] [address] Dr. Deepak Greenfield HGB 12.3 g/dl Critically low 14.0-18.0 [facility] Comment on above: Performed By: #### M G, CMP #### [facility] [address] [place] [address] Dr. Deepak Greenfield LYMPHM # 1.91 103/ul Normal 1.20-3.80 [facility] Comment on above: Performed By: #### M G, CMP #### [facility] [address] [place] [address] Dr. Deepak Greenfield LYMPHM% 33.0 % Normal 20.5-60.0 [facility] Comment on above: Performed By: #### M G, CMP #### [facility] [address] [place] [address] Dr. Deepak Greenfield MCH 31.7 pg Normal 25.9-34.0 [facility] Comment on above: Performed By: #### M G, CMP #### [facility] [address] [place] [address] Dr. Deepak Greenfield MCHC 32.7 g/dl Normal 29.9-35.2 [facility] Comment on above: Performed By: #### M G, CMP #### [facility] [address] [place] [address] Dr. Deepak Greenfield MCV 96.9 fL Critically high 80.0-94.0 [facility] Comment on above: Performed By: #### M G, CMP #### [facility] [address] [place] [address] Dr. Deepak Greenfield METAMYELOCYTE # Normal [facility] Comment on above: Performed By: #### M G, CMP #### [facility] [address] [place] [address] Dr. Deepak Greenfield METAMYELOCYTE % Normal [facility] Comment on above: Performed By: #### M G, CMP #### [facility] [address] [place] [address] Dr. Deepak Greenfield MONOM# 0.29 103/ul Critically low 0.30-0.80 [facility] Comment on above: Performed By: #### M G, CMP #### [facility] [address] [place] [address] Dr. Deepak Greenfield MONOM% 5.0 % Normal 1.7-12.0 [facility] Comment on above: Performed By: #### M G, CMP #### [facility] [address] [place] [address] Dr. Deepak Greenfield MPV 11.0 fL Normal 9.5-13.5 [facility] Comment on above: Performed By: #### M G, CMP #### [facility] [address] [place] [address] Dr. Deepak Greenfield MYELOCYTE # Normal [facility] Comment on above: Performed By: #### M G, CMP #### [facility] [address] [place] [address] Dr. Deepak Greenfield MYELOCYTE % Normal [facility] Comment on above: Performed By: #### M G, CMP #### [facility] [address] [place] [address] Dr. Deepak Greenfield NRBC Normal [facility] Comment on above: Performed By: #### M G, CMP #### [facility] [address] [place] [address] [address] Deepak Greenfield PLT 208 103/ul Normal 150-450 [facility] Comment on above: Performed By: #### M G, CMP #### [facility] [address] [address] [address] Deepak Greenfield RBC 3.88 106/ul Critically low 4.70-6.10 [facility] Comment on above: Performed By: #### M G, CMP #### [facility] [address] [address] [address] Deepak Greenfield RDW 12.9 % Normal 11.0-15.0 [facility] Comment on above: Performed By: #### M G, CMP #### [facility] [address] [place] [address] Dr. Deepak Greenfield SEG # 3.13 103/ul Normal 1.40-6.50 [facility] Comment on above: Performed By: #### M G, CMP #### [facility] [address] [place] [address] Dr. Deepak Greenfield SEG % 54.0 % Normal 43.0-75.0 [facility] Comment on above: Performed By: #### M G, CMP #### [facility] [address] [place] [address] Dr. Deepak Greenfield STOMATOCYTES 3+ Normal [facility] Comment on above: Performed By: #### M G, CMP #### [facility] [address] [place] [address] Dr. Deepak Greenfield WBC 5.8 103/ul Normal 4.0-11.0 [facility] Comment on above: Performed By: #### M G, CMP #### [facility] [address] [place] [address] Dr. Deepak Greenfield PROF CHEM 8 (BAS METB)on Anion gap [Moles/Vol] 16.1 mmol/L Normal [facility] Comment on above: Performed By: #### B MP #### [facility] [address] [address] [address] Deepak Greenfield Calcium [Mass/Vol] 9.3 mg/dL Normal 8.5-10.1 [facility] Comment on above: Performed By: #### B MP #### [facility] [address] [place] [address] [address] Deepak Greenfield Chloride [Moles/Vol] 105 mmol/L Normal 98-107 [facility] Comment on above: Performed By: #### B MP #### [facility] [address] [place] [address] [address] Deepak Greenfield CO2 [Moles/Vol] 27.6 mmol/L Normal 21.0-32.0 [facility] Comment on above: Performed By: #### B MP #### [facility] [address] [place] [address] Dr. Deepak Greenfield Creatinine [Mass/Vol] 0.96 mg/dL Normal 0.70-1.30 [facility] Comment on above: Performed By: #### B MP #### [facility] [address] [place] [address] [address] Deepak Greenfield EGFR-AF GREENLANDIC >60 Normal >=60 [facility] Comment on above: Performed By: #### B MP #### [facility] [address] [place] [address] [address] Deepak Greenfield EGFR-NON AF [place] >60 Normal >=60 [facility] Comment on above: Performed By: #### B MP #### [facility] [address] [place] [address] [address] Deepak Greenfield Glucose [Mass/Vol] 160 mg/dL Critically high 74-106 [facility] Comment on above: Performed By: #### B MP #### [facility] [address] [place] [address] [address] Deepak Greenfield Potassium [Moles/Vol] 3.7 mmol/L Normal 3.5-5.1 [facility] Comment on above: Performed By: #### B MP #### [facility] [address] [place] [address] [address] Deepak Greenfield Sodium [Moles/Vol] 145 mmol/L Normal 136-145 [facility] Comment on above: Performed By: #### B MP #### [facility] [address] [place] [address] Dr. Deepak Greenfield Urea nitrogen [Mass/Vol] 5.0 mg/dL Critically low 7.0-18.0 [facility] Comment on above: Performed By: #### B MP #### [facility] [address] [place] [address] Dr. Deepak Greenfield Urea nitrogen/Creatinine [Mass ratio] 5.2 mg/mg Normal [facility] Comment on above: Performed By: #### B MP #### [facility] [address] [place] [address] Dr. Deepak Greenfield AMMONIAon 07-31-2022 Ammonia (P) [Moles/Vol] 94 umol/L Critically high 11-32 [facility] Comment on above: Performed By: #### M G, CMP #### [facility] [address] [place] [address] Dr. Deepak Greenfield CBC AUTO DIFFon 07-31-2022 BASO # 0.0 103/ul Normal 0.0-0.1 [facility] Comment on above: Performed By: #### B MP #### [facility] [address] [place] [address] Dr. Deepak Greenfield Basophils/100 WBC (Bld) 0.1 % Critically low 0.2-2.0 [facility] Comment on above: Performed By: #### B MP #### [facility] [address] [place] [address] Dr. Deepak Greenfield EO # 0.0 103/ul Normal 0.0-0.7 [facility] Comment on above: Performed By: #### B MP #### [facility] [address] [place] [address] Dr. Deepak Greenfield Eosinophils/100 WBC (Bld) 0.0 % Critically low 0.9-7.0 [facility] Comment on above: Performed By: #### B MP #### [facility] [address] [place] [address] Dr. Deepak Greenfield Erythrocyte distribution width (RBC) [Ratio] 13.1 % Normal 11.0-15.0 [facility] Comment on above: Performed By: #### B MP #### [facility] [address] [place] [address] Dr. Deepak Greenfield Hematocrit (Bld) [Volume fraction] 32.4 % Critically low 42.0-54.0 [facility] Comment on above: Performed By: #### B MP #### [facility] [address] [place] [address] Dr. Deepak Greenfield Hemoglobin (Bld) [Mass/Vol] 10.9 g/dL Critically low 14.0-18.0 [facility] Comment on above: Performed By: #### B MP #### [facility] [address] [place] [address] Dr. Deepak Greenfield IG # 0.02 10e3/ul Normal 0.00-0.03 [facility] Comment on above: Performed By: #### B MP #### [facility] [address] [place] [address] Dr. Deepak Greenfield IG % 0.3 % Normal 0.0-0.5 [facility] Comment on above: Performed By: #### B MP #### [facility] [address] [place] [address] Dr. Deepak Greenfield LYMPH # 2.7 103/ul Normal 1.2-3.8 [facility] Comment on above: Performed By: #### B MP #### [facility] [address] [place] [address] Dr. Deepak Greenfield Lymphocytes/100 WBC (Bld) 38.9 % Normal 20.5-60.0 [facility] Comment on above: Performed By: #### B MP #### [facility] [address] [place] [address] Dr. Deepak Greenfield MANUAL DIFF REQ NO Normal [facility] Comment on above: Performed By: #### B MP #### [facility] [address] [place] [address] Dr. Deepak Greenfield MCH (RBC) [Entitic mass] 32.3 pg Normal 25.9-34.0 [facility] Comment on above: Performed By: #### B MP #### [facility] [address] [place] [address] Dr. Deepak Greenfield MCHC (RBC) [Mass/Vol] 33.6 g/dL Normal 29.9-35.2 [facility] Comment on above: Performed By: #### B MP #### [facility] [address] [place] [address] Dr. Deepak Greenfield MCV (RBC) [Entitic vol] 96.1 fL Critically high 80.0-94.0 [facility] Comment on above: Performed By: #### B MP #### [facility] [address] [place] [address] Dr. Deepak Greenfield MONO # 0.3 103/ul Normal 0.3-0.8 [facility] Comment on above: Performed By: #### B MP #### [facility] [address] [place] [address] Dr. Deepak Greenfield Monocytes/100 WBC (Bld) 4.9 % Normal 1.7-12.0 [facility] Comment on above: Performed By: #### B MP #### [facility] [address] [place] [address] Dr. Deepak Greenfield NEUT # 3.9 103/ul Normal 1.4-6.5 [facility] Comment on above: Performed By: #### B MP #### [facility] [address] [place] [address] Dr. Deepak Greenfield Neutrophils/100 WBC (Bld) 55.8 % Normal 43.0-75.0 [facility] Comment on above: Performed By: #### B MP #### [facility] [address] [place] [address] Dr. Deepak Greenfield Platelet mean volume (Bld) [Entitic vol] 9.7 fL Normal 9.5-13.5 [facility] Comment on above: Performed By: #### B MP #### [facility] [address] [place] [address] Dr. Deepak Greenfield PLT 296 103/ul Normal 150-450 [facility] Comment on above: Performed By: #### B MP #### [facility] [address] [address] [address] Deepak Greenfield RBC 3.37 106/ul Critically low 4.70-6.10 [facility] Comment on above: Performed By: #### B MP #### [facility] [address] [address] [address] Deepak Greenfield WBC 7.0 103/ul Normal 4.0-11.0 [facility] Comment on above: Performed By: #### B MP #### [facility] [address] [place] [address] Dr. Deepak Greenfield PROF CHEM 8 (BAS METB)on Anion gap [Moles/Vol] 14.9 mmol/L Normal [facility] Comment on above: Performed By: #### C BC #### [facility] [address] [place] [address] Dr. Deepak Greenfield Calcium [Mass/Vol] 8.8 mg/dL Normal 8.5-10.1 [facility] Comment on above: Performed By: #### C BC #### [facility] [address] [place] [address] Dr. Deepak Greenfield Chloride [Moles/Vol] 105 mmol/L Normal 98-107 [facility] Comment on above: Performed By: #### C BC #### [facility] [address] [place] [address] Dr. Deepak Greenfield CO2 [Moles/Vol] 26.4 mmol/L Normal 21.0-32.0 [facility] Comment on above: Performed By: #### C BC #### [facility] [address] [place] [address] Dr. Deepak Greenfield Creatinine [Mass/Vol] 0.70 mg/dL Normal 0.70-1.30 [facility] Comment on above: Performed By: #### C BC #### [facility] [address] [place] [address] Dr. Deepak Greenfield EGFR-AF GREENLANDIC >60 Normal >=60 [facility] Comment on above: Performed By: #### C BC #### [facility] [address] [place] [address] Dr. Deepak Greenfield EGFR-NON AF GREENLANDIC >60 Normal >=60 [facility] Comment on above: Performed By: #### C BC #### [facility] [address] [address] [address] Deepak Greenfield Glucose [Mass/Vol] 129 mg/dL Critically high 74-106 [facility] Comment on above: Performed By: #### C BC #### [facility] [address] [address] [address] Deepak Greenfield Potassium [Moles/Vol] 4.3 mmol/L Normal 3.5-5.1 [facility] Comment on above: Performed By: #### C BC #### [facility] [address] [place] [address] Dr. Deepak Greenfield Sodium [Moles/Vol] 142 mmol/L Normal 136-145 [facility] Comment on above: Performed By: #### C BC #### [facility] [address] [address] [address] Deepak Greenfield Urea nitrogen [Mass/Vol] 6.0 mg/dL Critically low 7.0-18.0 [facility] Comment on above: Performed By: #### C BC #### [facility] [address] [place] [address] Dr. Deepak Greenfield Urea nitrogen/Creatinine [Mass ratio] 8.6 mg/mg Normal [facility] Comment on above: Performed By: #### C BC #### [facility] [address] [address] [address] Deepak Greenfield AMMONIAon 07-30-2022 Ammonia (P) [Moles/Vol] 64 umol/L Critically high 11-32 [facility] Comment on above: Performed By: #### C BC #### [facility] [address] [address] [address] Deepak Greenfield CBC AUTO DIFFon 07-30-2022 BASO # 0.0 103/ul Normal 0.0-0.1 [facility] Comment on above: Performed By: #### I NFLUAB #### [facility] [address] [place] [address] Dr. Deepak Greenfield Basophils/100 WBC (Bld) 0.0 % Critically low 0.2-2.0 [facility] Comment on above: Performed By: #### I NFLUAB #### [facility] [address] [place] [address] Dr. Deepak Greenfield EO # 0.0 103/ul Normal 0.0-0.7 [facility] Comment on above: Performed By: #### I NFLUAB #### [facility] [address] [place] [address] Dr. Deepak Greenfield Eosinophils/100 WBC (Bld) 0.0 % Critically low 0.9-7.0 [facility] Comment on above: Performed By: #### I NFLUAB #### [facility] [address] [place] [address] Dr. Deepak Greenfield Erythrocyte distribution width (RBC) [Ratio] 13.1 % Normal 11.0-15.0 [facility] Comment on above: Performed By: #### I NFLUAB #### [facility] [address] [place] [address] Dr. Deepak Greenfield Hematocrit (Bld) [Volume fraction] 31.4 % Critically low 42.0-54.0 [facility] Comment on above: Performed By: #### I NFLUAB #### [facility] [address] [place] [address] Dr. Deepak Greenfield Hemoglobin (Bld) [Mass/Vol] 10.5 g/dL Critically low 14.0-18.0 [facility] Comment on above: Performed By: #### I NFLUAB #### [facility] [address] [place] [address] Dr. Deepak Greenfield IG # 0.01 10e3/ul Normal 0.00-0.03 [facility] Comment on above: Performed By: #### I NFLUAB #### [facility] [address] [address] [address] Deepak Greenfield IG % 0.2 % Normal 0.0-0.5 [facility] Comment on above: Performed By: #### I NFLUAB #### [facility] [address] [address] [address] Deepak Greenfield LYMPH # 1.5 103/ul Normal 1.2-3.8 [facility] Comment on above: Performed By: #### I NFLUAB #### [facility] [address] [address] [address] Deepak Greenfield Lymphocytes/100 WBC (Bld) 27.5 % Normal 20.5-60.0 [facility] Comment on above: Performed By: #### I NFLUAB #### [facility] [address] [place] [address] Dr. Deepak Greenfield MANUAL DIFF REQ NO Normal [facility] Comment on above: Performed By: #### I NFLUAB #### [facility] [address] [place] [address] Dr. Deepak Greenfield MCH (RBC) [Entitic mass] 32.4 pg Normal 25.9-34.0 [facility] Comment on above: Performed By: #### I NFLUAB #### [facility] [address] [place] [address] Dr. Deepak Greenfield MCHC (RBC) [Mass/Vol] 33.4 g/dL Normal 29.9-35.2 [facility] Comment on above: Performed By: #### I NFLUAB #### [facility] [address] [place] [address] Dr. Deepak Greenfield MCV (RBC) [Entitic vol] 96.9 fL Critically high 80.0-94.0 [facility] Comment on above: Performed By: #### I NFLUAB #### [facility] [address] [place] [address] Dr. Deepak Greenfield MONO # 0.2 103/ul Critically low 0.3-0.8 [facility] Comment on above: Performed By: #### I NFLUAB #### [facility] [address] [address] [address] Deepak Greenfield Monocytes/100 WBC (Bld) 2.9 % Normal 1.7-12.0 [facility] Comment on above: Performed By: #### I NFLUAB #### [facility] [address] [address] [address] Deepak Greenfield NEUT # 3.8 103/ul Normal 1.4-6.5 [facility] Comment on above: Performed By: #### I NFLUAB #### [facility] [address] [place] [address] Dr. Deepak Greenfield Neutrophils/100 WBC (Bld) 69.4 % Normal 43.0-75.0 [facility] Comment on above: Performed By: #### I NFLUAB #### [facility] [address] [place] [address] Dr. Deepak Greenfield Platelet mean volume (Bld) [Entitic vol] 9.4 fL Critically low 9.5-13.5 [facility] Comment on above: Performed By: #### I NFLUAB #### [facility] [address] [address] [address] Deepak Greenfield PLT 256 103/ul Normal 150-450 [facility] Comment on above: Performed By: #### I NFLUAB #### [facility] [address] [place] [address] Dr. Deepak Greenfield RBC 3.24 106/ul Critically low 4.70-6.10 [facility] Comment on above: Performed By: #### I NFLUAB #### [facility] [address] [place] [address] Dr. Deepak Greenfield WBC 5.5 103/ul Normal 4.0-11.0 [facility] Comment on above: Performed By: #### I NFLUAB #### [facility] [address] [place] [address] Dr. Deepak Greenfield Coding Summary.on 07-30-2022 Coding Summary. CD:[id number] W w+PGhlYWQ+OH8GSGQiX47 ilAEkeQ5gQ3NVAAtYJvee SVRGYQiIUgEuqzNnFR9xq XNjZXJu IC8+CO6nEWUbLkztoMXuv 1P0xUL9I79eko8wIWbieR M8TJPkYpWhzdrkc5zfqLp 6IDcuNmluOyBt XJClbS97YFN7iV41Lt52l RFipXQkc7antPf7LcSsCC UaOMR2zVfgWQxvq2ByNFM bD68kvPMdv7Y9 IKHnzNiseAVfQzPvqZN2g T3uYMxosibct2hyiboyNb y5zg59lYLak6L0fNV0Q2R tjpM3JAPlqOXe OjsmqJPGpF5dwogls1mnv sewIhVxSMViJXt0UFz9FR XjpGchLjOqGG74RQP4BRY pkjUmD7GxRYXk cNakTmN5l0L1Dm9BY0RGF gcvQ3WEYUPVCInraJM+PC 13ny47N4EcEtqbIjw7FDH bLOE0nOC9oK2h DFLpXHrbh9L4aDY4L8Oic mSreb2ds4boWPNiCEwtT4 6iqOHtf3K8ZVYvbKT9GOI xyBrqMmEsoG24 Oyc+MUAjpPyto3JgYryqw 6gbw0xiuPm6JbwiTILiie SzuXcxNBF4f7PpNk9rUOA ozES2kZZ5hB2s XjSkJrQ6EEtrT146NxRys OOgQocoG94hG2JocYQ+PH YiEbn5VSFhcYllHN7bY9J hZGRpbmctbGVm iLhsHF7gOLPgzvelDZCdb S7zVEIvC8p7KcTsZdI6FI zbL1KbMGIqswbjRt98qD3 vXjNbIbY0ZPqb B2YeqrC0IDHgxFZxUKrfM MX3U95zx1O5ZDPoHCEnDY H6eUQ0cF8lxMxiufstsBZ mdDsgdmVydGlj XAqvFAkeN859LJJmpXhgP kNvZGluZyBEYXRlOiAgMD QvMTMvMjAyMzwvdGQ+PHR vBKK7eBlkKTWz fIQlQKkjAw4bkMlslRwiB E7cWNYyadxrNVJsyH6sOH CyuKYslYwtZZ0wIIQpkse jx974CkMtYBO6 FZQijRNnK9SvtV1mQgMvH OPqDFRjV9PptNAeBKycN2 60SXbtKcK6FLBfehBeG1A sLWFsaWduOiB0 l1U8Ak9Zs0WxrizcE0Ggi RUuTiXsCvrnNOr5E3FhBu wvdHI+GD88TVHjVP81PIw 0SPY2dWuhCQpf GUOiV4FrxU0wUkOjPTUdH GRkOyc+PHRhYmxlIHdpZH RoPScxMDAlJyBzdHlsZT0 wHi7yWQUeQVWg vApyeBJdBhRud7tvOBQpF UeeHL5niNxlG0DojMK7KZ Lig5q8Sv82I24gN4NczPD +GXFdoBK6wHF1 eS0tAmJfJoI3OZfdJ171Q fWmgHWjEnkqi3wrw7togX y0WoY7ZKQfaoQpuTrjLFL 8p1FrIa45V46b IHdpZHRoPSIxNSUiIHZhb Hrbbw2cbA5eAq7+PGNvbC L4mUT0hS5yOuUaRjK5VRx wK951OmYqkZMt Kpblf7ian2mfvCc7TuZmS KRsdpHrhZfuMCN2g9VlGu 34V5MaoDzuw4WoYwj6um5 2rGSwq6W0nWM8 I5BaIGKidmnxpQVktHbcU L1sNLUakkrvQRNqiB5sQK ErG4k6XnQwTzJ8GUgdO1C ebyY7KQQngGYp OTJobLHIsE1gsfqbo0arg ptdMuIaSPObMZi0ZOo5CO CvaPclBiIeXWX3LzH1PJI 7bNHhsA6rnTnr iruerO7cWyl+OSX2iWWgy OATBZ3eLciyvZJ+PHRkIH Z8wVyrHZgdCOZlrX1bRVW qM5z5OiTiRsK5 LCvcK7XbxnE9PLLfsKVpU PVxkZVAgP6nvptls8mvrp lzMpQySKKbKQd6MZx0VXF saWduOiBsZWZ0 RlS5ZKM1wHGxfY7fiKnov dwshD8lGpj+QmlydGggRG C9HUg1A9WkBab2GKPjkRs vTV4bhSFuHPzr Aq0jcWsybPdsNN5aUMMiu eoam138RiHlp0skNEZymW CrREqwJVC2C33gr5C8SIU cAFPxXRA3iDI8 vJ6ifKtxxbxtcRPdhWkjv nIjrAwoFCgbGBqnG804UU VgcDuzYvYkDXu0B2UtZfh 8WULwsArbJM3e qVLiDEuiMr4elCnknEliT C7eZPZabhzmm079NmVma5 xkXQHnoCOkCEylXDR5L14 hw9V2ZRNaDYAq NYY9tFC1iM6teWbxcdrik GVmdDsgdmVydGljYWwtYW nhP902DFUusBdcUuOolKt 7E5XiRsl0NGGi dPljAM7bzKOaQSocZs6oi CybxJhuTJ0rJOIfzdtcl4 76QzZus3yhIADcaUJfIAg tWSA0J72ae5H7 GEOlCAAlZVD5pDP6wF4sk GlnbjogbGVmdDsgdmVydG fiAWedEYcaI027UZGvrQj nPlBhdGllbnQg IBweQIv1Q7VdDbupwOU+P S67UDVaBZ35jWPpvTHck7 ywkNa4WsIcGJGyZPF7uGj hJBayl5CcRPWp R36xzGRih8M5JKGkyTrcc BWqLsUbwTR2tB2rQPteif hwc3cevprrGsrmh7sdzc8 3dN31A25vIIuj ZHRoPSIzMCUiIHZhbGlnb w6nzN7hGi8+SBCixMX8qN I8uN0qIZMpXjW7WQrhL59 9InRvcCIvPjxj t8nci8zdkLn4IzF2OGFbr xAsxJuoQHJ1a6VqEn03F7 9sIHdpZHRoPSIyMCUiIHZ ceEvwht3iuJ2s Ii8+CLAaoVO1tXE2aK3eJ bLoKkU9UFudF535RzGkbO BqFvdmL90uR9JfaOU+PHR xFmy7YZOqoUuk LE7nnVEbGEexEp3vWDA8U zGeSgAeWUnoW1QcIQSueu uizsxtuDC7ROEjXMStnB0 2Fv8xnCdlBTAc bBEYgD1pfhlba7dbsxglG aPzASAsGXi0FEm7LDLdtY nfLnJxYDF2PrW7SEP3iLV cuZ1cwIkzumkv lR5xQ8CeIVOtvhnvIl37r W9uUjPhVkM8WQrsVmh+U0 5KIMMVZSTBTWSFRuWKMC7 7HO52eYUpy8N6 rOH0G7PlJTPpcbkklrptz OP4ZCJtQSBwoP02lAGkNE mlCx8jm6R1n072WTUyPGC jkX01Kq6txMnw DGVusMQUzW1kzlebp3sqp xuvFnFtZFMqFKq5OOn6VD DrcLixGiAlBUR0TeG1QUS 9zGVyiA8ppKyw hhpjzB8gWbj+MTAvMTYvM Lp9IRduxZN+HQBtPCQ2tE aaKMtmSCRtwU7wZTApG9d 4IuLmJmT2WPhc O7YgUVSzjyznOs19tG8jI gPcJnJ5SKjfG7SvsgG3XC QraTJmUGvrXVO1M45fd8S 7DWJhTDRlVEC4 zHM1uM5hiDqwvvtueJQup DsgdmVydGljYWwtYWxpZ2 46IHRvcDsnPjQyIFllYXJ vWP82LH43zWOh s5E0kHG5U9PgWTPuxsedh rvbiBK5STSaWWNvkX86kZ HiHIbrHz9jo7Y1l874ESL yAIUsaZ13Fr6q ePfjNYUtrFUByR4ethoii 8jdwbkkZvWwDCHkTFg9WP g0TRDhoHmgOsDlCLJ0TrR 8XHF4cPAtnU4p kKtxoldnfE4wPqn+TWFsZ TwvdGQ+USAyMOZ8jMfzAG feGGEwwL1xEGThJ8t0AnI gKhU8OCxcN0Il KPQouprkOt59qJ7gZhGlD eQ4UNjuF9NcjzT6TJIhvY UjRLdvEAY7R09rw6A7XAC tVREkSOW6hKV5 yP9vtOfigzqtxUHviFkru aSyjBnhYWfcYLlsQ177KS PsxZehLc14sPDiyGkpyqQ 8Q1RlMnfzxGF+ NS54KNLxRC35tLCnnOGgd 9bnrTv8StSzWWQiBUB3pM bkFKfal8SpHOCzA32bpYV gu3M7ETBgtHtl lAFcCfVjfQP5oK0xOUmbg esns4rxcxrnVeqjx1ntqb 45nM78N11oRZnuPLPqJOH zMCUiIHZhbGln bu5xjS1aNk4+EXKbeOJ3m BG8aK9mBzAgQnT5PFghT9 41VmXslBQrDbpfg1xyw8p wnLf4KaFlRVAx beQepVclGJR8y2RnEs07J 29sIHdpZHRoPSIyMCUiIH GumEursq3neS2uJg9+PC9 oy8dwdc27hH35 dHI+FEPqEZH5kYpqBMbyR FDoiG3lUXhyXyB0RIScVw TzrQ32fIJlKKhjXj1orAg pbIpaCQ5oLMCd mapzd592AqIhp5giLYUde OBzPMwpOKU8V01gn3N1YL HvUKSoDWV3eED9jN9adVz nbjogbGVmdDsg neOhfCdqAPcrXTsqR612Q BXsrKpxPjJxdDQxA9iqbm XECZ3oJejekAU+PHRkIHN 0eWxlPSdwYWRk nV9wZHOaN0k8XqChHbJ6C NaqA5QkvsI3ISXugUJlMW OulIWTcD3znsdtv4xlycd gIzAwMDAwMDt0 JTe2FOCpnGazJyAxOVL7W nV6IHV2uYMjdD2kiBxbmt hesB0xSwo+RklOOjwvdGQ +KBJnRVS2iAwg DYgrHMImaR2rHBKiE7x6I lJbJoP1CTucD4OdsnZ0KG KapSEgGEYqpYARdM6mbct fu1suggvbRoAf JAUbAIn9LCe0UWWtuZsaV lHeJEK8HaP5HGE9yXVpgB 5phGaznjpibN9nRev+TVJ OOjwvdGQ+PHRk RTA7mHcaBZpyNJIfjP2jX YMkU8g2IfMqNsM0MSpzX7 XgllE6KDYwuQIgEWGlzBB UwI6solzaw6ou oqnpBzInKUFmYDy0YXm3L BTscExlPcDbHFZ6KeH2KL B5eBHpcJ3vrEeapxfkrR0 wOyc+ADF0ADW5 PH74QI04O1RjGpljnFNzv +PHRhYmxlIHdpZHRoPS qkTUChBgQiuKypLT8pQm0 yZGVyLWNvbGxh cHNlOiBj (more content not included)... Normal [facility] PROF CHEM 8 (BAS METB)on Anion gap [Moles/Vol] 8.3 mmol/L Normal [facility] Comment on above: Performed By: #### I NFLUAB #### [facility] [address] [address] [address] Deepak Greenfield Calcium [Mass/Vol] 8.5 mg/dL Normal 8.5-10.1 [facility] Comment on above: Performed By: #### I NFLUAB #### [facility] [address] [address] [address] Deepak Greenfield Chloride [Moles/Vol] 104 mmol/L Normal 98-107 [facility] Comment on above: Performed By: #### I NFLUAB #### [facility] [address] [address] [address] Deepak Greenfield CO2 [Moles/Vol] 30.0 mmol/L Normal 21.0-32.0 [facility] Comment on above: Performed By: #### I NFLUAB #### [facility] [address] [address] [address] Deepak Greenfield Creatinine [Mass/Vol] 0.46 mg/dL Critically low 0.70-1.30 [facility] Comment on above: Performed By: #### I NFLUAB #### [facility] [address] [address] [address] Deepak Greenfield EGFR-AF GREENLANDIC >60 Normal >=60 [facility] Comment on above: Performed By: #### I NFLUAB #### [facility] [address] [address] [address] Deepak Greenfield EGFR-NON AF GREENLANDIC >60 Normal >=60 [facility] Comment on above: Performed By: #### I NFLUAB #### [facility] [address] [address] [address] Deepak Greenfield Glucose [Mass/Vol] 152 mg/dL Critically high 74-106 [facility] Comment on above: Performed By: #### I NFLUAB #### [facility] [address] [place] [address] Dr. Deepak Greenfield Potassium [Moles/Vol] 4.3 mmol/L Normal 3.5-5.1 [facility] Comment on above: Performed By: #### I NFLUAB #### [facility] [address] [place] [address] Dr. Deepak Greenfield Sodium [Moles/Vol] 138 mmol/L Normal 136-145 [facility] Comment on above: Performed By: #### I NFLUAB #### [facility] [address] [place] [address] Dr. Deepak Greenfield Urea nitrogen [Mass/Vol] 9.0 mg/dL Normal 7.0-18.0 [facility] Comment on above: Performed By: #### I NFLUAB #### [facility] [address] [place] [address] Dr. Deepak Greenfield Urea nitrogen/Creatinine [Mass ratio] 19.6 mg/mg Normal [facility] Comment on above: Performed By: #### I NFLUAB #### [facility] [address] [place] [address] Dr. Deepak Greenfield AMMONIAon 07-29-2022 Ammonia (P) [Moles/Vol] 69 umol/L Critically high 11-32 [facility] Comment on above: Performed By: #### A MM #### [facility] [address] [place] [address] Dr. Deepak Greenfield CBC AUTO DIFFon 07-29-2022 BASO # 0.0 103/ul Normal 0.0-0.1 [facility] Comment on above: Performed By: #### M G, CMP #### [facility] [address] [place] [address] Dr. Deepak Greenfield Basophils/100 WBC (Bld) 0.2 % Normal 0.2-2.0 [facility] Comment on above: Performed By: #### M G, CMP #### [facility] [address] [place] [address] Dr. Deepak Greenfield EO # 0.0 103/ul Normal 0.0-0.7 [facility] Comment on above: Performed By: #### M G, CMP #### [facility] [address] [place] [address] Dr. Deepak Greenfield Eosinophils/100 WBC (Bld) 0.0 % Critically low 0.9-7.0 [facility] Comment on above: Performed By: #### M G, CMP #### [facility] [address] [place] [address] Dr. Deepak Greenfield Erythrocyte distribution width (RBC) [Ratio] 13.2 % Normal 11.0-15.0 [facility] Comment on above: Performed By: #### M G, CMP #### [facility] [address] [place] [address] Dr. Deepak Greenfield Hematocrit (Bld) [Volume fraction] 33.1 % Critically low 42.0-54.0 [facility] Comment on above: Performed By: #### M G, CMP #### [facility] [address] [place] [address] Dr. Deepak Greenfield Hemoglobin (Bld) [Mass/Vol] 10.8 g/dL Critically low 14.0-18.0 [facility] Comment on above: Performed By: #### M G, CMP #### [facility] [address] [place] [address] Dr. Deepak Greenfield IG # 0.04 10e3/ul Critically high 0.00-0.03 [facility] Comment on above: Performed By: #### M G, CMP #### [facility] [address] [place] [address] Dr. Deepak Greenfield IG % 0.5 % Normal 0.0-0.5 [facility] Comment on above: Performed By: #### M G, CMP #### [facility] [address] [place] [address] Dr. Deepak Greenfield LYMPH # 1.1 103/ul Critically low 1.2-3.8 [facility] Comment on above: Performed By: #### M G, CMP #### [facility] [address] [place] [address] Dr. Deepak Greenfield Lymphocytes/100 WBC (Bld) 13.6 % Critically low 20.5-60.0 [facility] Comment on above: Performed By: #### M G, CMP #### [facility] [address] [place] [address] Dr. Deepak Greenfield MANUAL DIFF REQ NO Normal [facility] Comment on above: Performed By: #### M G, CMP #### [facility] [address] [place] [address] Dr. Deepak Greenfield MCH (RBC) [Entitic mass] 32.2 pg Normal 25.9-34.0 [facility] Comment on above: Performed By: #### M G, CMP #### [facility] [address] [place] [address] Dr. Deepak Greenfield MCHC (RBC) [Mass/Vol] 32.6 g/dL Normal 29.9-35.2 [facility] Comment on above: Performed By: #### M G, CMP #### [facility] [address] [place] [address] Dr. Deepak Greenfield MCV (RBC) [Entitic vol] 98.8 fL Critically high 80.0-94.0 [facility] Comment on above: Performed By: #### M G, CMP #### [facility] [address] [place] [address] Dr. Deepak Greenfield MONO # 0.3 103/ul Normal 0.3-0.8 [facility] Comment on above: Performed By: #### M G, CMP #### [facility] [address] [place] [address] Dr. Deepak Greenfield Monocytes/100 WBC (Bld) 3.8 % Normal 1.7-12.0 [facility] Comment on above: Performed By: #### M G, CMP #### [facility] [address] [place] [address] Dr. Deepak Greenfield NEUT # 6.7 103/ul Critically high 1.4-6.5 [facility] Comment on above: Performed By: #### M G, CMP #### [facility] [address] [place] [address] Dr. Deepak Greenfield Neutrophils/100 WBC (Bld) 81.9 % Critically high 43.0-75.0 [facility] Comment on above: Performed By: #### M G, CMP #### [facility] [address] [place] [address] Dr. Deepak Greenfield Platelet mean volume (Bld) [Entitic vol] 9.6 fL Normal 9.5-13.5 [facility] Comment on above: Performed By: #### M G, CMP #### [facility] [address] [place] [address] Dr. Deepak Greenfield PLT 257 103/ul Normal 150-450 [facility] Comment on above: Performed By: #### M G, CMP #### [facility] [address] [place] [address] Dr. Deepak Greenfield RBC 3.35 106/ul Critically low 4.70-6.10 [facility] Comment on above: Performed By: #### M G, CMP #### [facility] [address] [place] [address] Dr. Deepak Greenfield WBC 8.2 103/ul Normal 4.0-11.0 [facility] Comment on above: Performed By: #### M G, CMP #### [facility] [address] [place] [address] Dr. Deepak Greenfield LACTATE/LACTIC ACIDon 2022 Lactate [Moles/Vol] 1.1 mmol/L Normal 0.4-2.0 [facility] Comment on above: Performed By: #### I NFLUAB #### [facility] [address] [place] [address] Dr. Deepak Greenfield PROF CHEM 8 (BAS METB)on Anion gap [Moles/Vol] 9.4 mmol/L Normal [facility] Comment on above: Performed By: #### I NFLUAB #### [facility] [address] [address] [address] Deepak Greenfield Calcium [Mass/Vol] 8.0 mg/dL Critically low 8.5-10.1 [facility] Comment on above: Performed By: #### I NFLUAB #### [facility] [address] [address] [address] Deepak Greenfield Chloride [Moles/Vol] 105 mmol/L Normal 98-107 [facility] Comment on above: Performed By: #### I NFLUAB #### [facility] [address] [address] [address] Deepak Greenfield CO2 [Moles/Vol] 30.7 mmol/L Normal 21.0-32.0 [facility] Comment on above: Performed By: #### I NFLUAB #### [facility] [address] [place] [address] Dr. Deepak Greenfield Creatinine [Mass/Vol] 0.66 mg/dL Critically low 0.70-1.30 [facility] Comment on above: Performed By: #### I NFLUAB #### [facility] [address] [place] [address] Dr. Deepak Greenfield EGFR-AF GRE[place]IC >60 Normal >=60 [facility] Comment on above: Performed By: #### I NFLUAB #### [facility] [address] [place] [address] Dr. Deepak Greenfield EGFR-NON AF [place]IC >60 Normal >=60 [facility] Comment on above: Performed By: #### I NFLUAB #### [facility] [address] [place] [address] Dr. Deepak Greenfield Glucose [Mass/Vol] 177 mg/dL Critically high 74-106 [facility] Comment on above: Performed By: #### I NFLUAB #### [facility] [address] [address] [address] Deepak Greenfield Potassium [Moles/Vol] 4.1 mmol/L Normal 3.5-5.1 [facility] Comment on above: Performed By: #### I NFLUAB #### [facility] [address] [place] [address] Dr. Deepak Greenfield Sodium [Moles/Vol] 141 mmol/L Normal 136-145 [facility] Comment on above: Performed By: #### I NFLUAB #### [facility] [address] [place] [address] Dr. Deepak Greenfield Urea nitrogen [Mass/Vol] 9.0 mg/dL Normal 7.0-18.0 [facility] Comment on above: Performed By: #### I NFLUAB #### [facility] [address] [place] [address] Dr. Deepak Greenfield Urea nitrogen/Creatinine [Mass ratio] 13.6 mg/mg Normal [facility] Comment on above: Performed By: #### I NFLUAB #### [facility] [address] [place] [address] Dr. Deepak Greenfield AMMONIAon 07-28-2022 Ammonia (P) [Moles/Vol] 68 umol/L Critically high 11-32 [facility] Comment on above: Performed By: #### B MP #### [facility] [address] [place] [address] Dr. Deepak Greenfield CBC AUTO DIFFon 07-28-2022 BASO # 0.0 103/ul Normal 0.0-0.1 [facility] Comment on above: Performed By: #### C BC #### [facility] [address] [place] [address] Dr. Deepak Greenfield Basophils/100 WBC (Bld) 0.3 % Normal 0.2-2.0 [facility] Comment on above: Performed By: #### C BC #### [facility] [address] [place] [address] Dr. Deepak Greenfield EO # 0.0 103/ul Normal 0.0-0.7 [facility] Comment on above: Performed By: #### C BC #### [facility] [address] [place] [address] Dr. Deepak Greenfield Eosinophils/100 WBC (Bld) 0.0 % Critically low 0.9-7.0 [facility] Comment on above: Performed By: #### C BC #### [facility] [address] [place] [address] Dr. Deepka Greenfield Erythrocyte distribution width (RBC) [Ratio] 13.3 % Normal 11.0-15.0 [facility] Comment on above: Performed By: #### C BC #### [facility] [address] [place] [address] Dr. Deepak Greenfield Hematocrit (Bld) [Volume fraction] 37.0 % Critically low 42.0-54.0 [facility] Comment on above: Performed By: #### C BC #### [facility] [address] [place] [address] Dr. Deepak Greenfield Hemoglobin (Bld) [Mass/Vol] 12.3 g/dL Critically low 14.0-18.0 [facility] Comment on above: Performed By: #### C BC #### [facility] [address] [place] [address] Dr. Deepak Greenfield IG # 0.06 10e3/ul Critically high 0.00-0.03 [facility] Comment on above: Performed By: #### C BC #### [facility] [address] [place] [address] Dr. Deepak Greenfield IG % 0.5 % Normal 0.0-0.5 [facility] Comment on above: Performed By: #### C BC #### [facility] [address] [place] [address] Dr. Deepak Greenfield LYMPH # 2.9 103/ul Normal 1.2-3.8 [facility] Comment on above: Performed By: #### C BC #### [facility] [address] [place] [address] Dr. Deepak Greenfield Lymphocytes/100 WBC (Bld) 23.5 % Normal 20.5-60.0 [facility] Comment on above: Performed By: #### C BC #### [facility] [address] [place] [address] Dr. Deepak Greenfield MANUAL DIFF REQ NO Normal [facility] Comment on above: Performed By: #### C BC #### [facility] [address] [address] [address] Deepak Greenfield MCH (RBC) [Entitic mass] 32.4 pg Normal 25.9-34.0 [facility] Comment on above: Performed By: #### C BC #### [facility] [address] [place] [address] Dr. Deepak Greenfield MCHC (RBC) [Mass/Vol] 33.2 g/dL Normal 29.9-35.2 [facility] Comment on above: Performed By: #### C BC #### [facility] [address] [place] [address] Dr. Deepak Greenfield MCV (RBC) [Entitic vol] 97.4 fL Critically high 80.0-94.0 [facility] Comment on above: Performed By: #### C BC #### [facility] [address] [place] [address] Dr. Deepak Greenfield MONO # 1.0 103/ul Critically high 0.3-0.8 [facility] Comment on above: Performed By: #### C BC #### [facility] [address] [place] [address] Dr. Deepak Greenfield Monocytes/100 WBC (Bld) 8.0 % Normal 1.7-12.0 [facility] Comment on above: Performed By: #### C BC #### [facility] [address] [place] [address] Dr. Deepak Greenfield NEUT # 8.3 103/ul Critically high 1.4-6.5 [facility] Comment on above: Performed By: #### C BC #### [facility] [address] [place] [address] Dr. Deepak Greenfield Neutrophils/100 WBC (Bld) 67.7 % Normal 43.0-75.0 [facility] Comment on above: Performed By: #### C BC #### [facility] [address] [place] [address] Dr. Deepak Greenfield Platelet mean volume (Bld) [Entitic vol] 9.7 fL Normal 9.5-13.5 [facility] Comment on above: Performed By: #### C BC #### [facility] [address] [address] [address] Deepak Greenfield PLT 325 103/ul Normal 150-450 [facility] Comment on above: Performed By: #### C BC #### [facility] [address] [place] [address] Dr. Deepak Greenfield RBC 3.80 106/ul Critically low 4.70-6.10 [facility] Comment on above: Performed By: #### C BC #### [facility] [address] [place] [address] Dr. Deepak Greenfield WBC 12.2 103/ul Critically high 4.0-11.0 [facility] Comment on above: Performed By: #### C BC #### [facility] [address] [place] [address] Dr. Deepak Greenfield CULTURE BLOODon 07-28-2022 Microscopic examination of blood, culture Culture Observations: NO GROWTH AT 5 DAYS. Normal [facility] Comment on above: Performed By: #### B [id number] #### [facility] [address] [place] [address] Dr. Deepak Greenfield Microscopic examination of blood, culture Culture Observations: NO GROWTH AT 5 DAYS. [facility] Comment on above: Performed By: #### C BC #### [facility] [address] [place] [address] Dr. Deepak Greenfield LACTATE/LACTIC ACIDon 2022 Lactate [Moles/Vol] 2.5 mmol/L Critically high 0.4-2.0 [facility] Comment on above: Performed By: #### C VDTBH #### [facility] [address] [place] [address] Dr. Deepak Greenfield PROF 14(COMP METB)on 023 Albumin [Mass/Vol] 3.1 g/dL Critically low 3.4-5.0 [facility] Comment on above: Performed By: #### C BC #### [facility] [address] [place] [address] Dr. Deepak Greenfield Albumin/Globulin [Mass ratio] 0.7 {ratio} Normal [facility] Comment on above: Performed By: #### C BC #### [facility] [address] [address] [address] Deepak Greenfield ALP [Catalytic activity/Vol] 51 U/L Normal 46-116 [facility] Comment on above: Performed By: #### C BC #### [facility] [address] [address] [address] Deepak Greenfield ALT [Catalytic activity/Vol] 106 U/L Critically high 16-63 [facility] Comment on above: Performed By: #### C BC #### [facility] [address] [address] [address] Deepak Greenfield Anion gap [Moles/Vol] 14.2 mmol/L Normal [facility] Comment on above: Performed By: #### C BC #### [facility] [address] [place] [address] Dr. Deepak Greenfield AST [Catalytic activity/Vol] 81 U/L Critically high 15-37 [facility] Comment on above: Performed By: #### C BC #### [facility] [address] [address] [address] Deepak Greenfield Bilirubin [Mass/Vol] 0.4 mg/dL Normal 0.2-1.0 [facility] Comment on above: Performed By: #### C BC #### [facility] [address] [address] [address] Deepak Greenfield Calcium [Mass/Vol] 8.9 mg/dL Normal 8.5-10.1 [facility] Comment on above: Performed By: #### C BC #### [facility] [address] [address] [address] Deepak Greenfield Chloride [Moles/Vol] 105 mmol/L Normal 98-107 [facility] Comment on above: Performed By: #### C BC #### [facility] [address] [address] [address] Deepak Greenfield CO2 [Moles/Vol] 27.9 mmol/L Normal 21.0-32.0 [facility] Comment on above: Performed By: #### C BC #### [facility] [address] [place] [address] Dr. Deepak Greenfield Creatinine [Mass/Vol] 0.77 mg/dL Normal 0.70-1.30 [facility] Comment on above: Performed By: #### C BC #### [facility] [address] [place] [address] Dr. Deepak Greenfield EGFR-AF GREENLANDIC >60 Normal >=60 [facility] Comment on above: Performed By: #### C BC #### [facility] [address] [place] [address] Dr. Deepak Greenfield EGFR-NON AF GRE[place]LANDIC >60 Normal >=60 [facility] Comment on above: Performed By: #### C BC #### [facility] [address] [place] [address] Dr. Deepak Greenfield Globulin (S) [Mass/Vol] 4.3 g/dL Normal [facility] Comment on above: Performed By: #### C BC #### [facility] [address] [place] [address] Dr. Deepak Greenfield Glucose [Mass/Vol] 162 mg/dL Critically high 74-106 [facility] Comment on above: Performed By: #### C BC #### [facility] [address] [place] [address] Dr. Deepak Greenfield Potassium [Moles/Vol] 4.1 mmol/L Normal 3.5-5.1 [facility] Comment on above: Performed By: #### C BC #### [facility] [address] [place] [address] Dr. Deepak Greenfield Protein [Mass/Vol] 7.4 g/dL Normal 6.4-8.2 [facility] Comment on above: Performed By: #### C BC #### [facility] [address] [place] [address] Dr. Deepak Greenfield Sodium [Moles/Vol] 143 mmol/L Normal 136-145 [facility] Comment on above: Performed By: #### C BC #### [facility] [address] [place] [address] Dr. Deepak Greenfield Urea nitrogen [Mass/Vol] 12.0 mg/dL Normal 7.0-18.0 [facility] Comment on above: Performed By: #### C BC #### [facility] [address] [place] [address] Dr. Deepak Greenfield Urea nitrogen/Creatinine [Mass ratio] 15.6 mg/mg Normal [facility] Comment on above: Performed By: #### C BC #### [facility] [address] [place] [address] Dr. Deepak Greenfield RESPIRATORY PANEL PLUSon Adenovirus Not detected Normal NOT DETECTED [facility] Comment on above: Performed By: #### B MP #### [facility] [address] [place] [address] Dr. Deepak Ocampo Parapertusis Not detected Normal NOT DETECTED [facility] Comment on above: Performed By: #### B MP #### [facility] [address] [place] [address] Dr. Deepak Murphy. Pertussis Not detected Normal NOT DETECTED [facility] Comment on above: Performed By: #### B MP #### [facility] [address] [place] [address] Dr. Deepak Greenfield Chlamydia Pneumoniae Not detected Normal NOT DETECTED [facility] Comment on above: Performed By: #### B MP #### [facility] [address] [place] [address] Dr. Deepak Greenfield Coronavirus 229E Not detected Normal NOT DETECTED [facility] Comment on above: Performed By: #### B MP #### [facility] [address] [place] [address] Dr. Deepak Greenfield Coronavirus HKU1 Not detected Normal NOT DETECTED [facility] Comment on above: Performed By: #### B MP #### [facility] [address] [place] [address] Dr. Deepak Greenfield Coronavirus NL63 Not detected Normal NOT DETECTED [facility] Comment on above: Performed By: #### B MP #### [facility] [address] [place] [address] Dr. Deepak Greenfield Coronavirus OC43 Not detected Normal NOT DETECTED [facility] Comment on above: Performed By: #### B MP #### [facility] [address] [address] [address] Deepak Greenfield Influenza A H1 Not detected Normal NOT DETECTED [facility] Comment on above: Performed By: #### B MP #### [facility] [address] [address] [address] Deepak Greenfield Influenza A H1 2009 Not detected Normal NOT DETECTED [facility] Comment on above: Performed By: #### B MP #### [facility] [address] [address] [address] Deepak Greenfield Influenza A H3 Not detected Normal NOT DETECTED [facility] Comment on above: Performed By: #### B MP #### [facility] [address] [address] [address] Deepak Greenfield Influenza B Not detected Normal NOT DETECTED [facility] Comment on above: Performed By: #### B MP #### [facility] [address] [address] [address] Deepak Greenfield Metapneumovirus Detected Abnormal NOT DETECTED [facility] Comment on above: Performed By: #### B MP #### [facility] [address] [address] [address] Deepak Greenfield Mycoplas. Pneumoniae Not detected Normal NOT DETECTED [facility] Comment on above: Performed By: #### B MP #### [facility] [address] [address] [address] Deepak Greenfield Parainfluenza 1 Not detected Normal NOT DETECTED [facility] Comment on above: Performed By: #### B MP #### [facility] [address] [address] [address] Deepak Greenfield Parainfluenza 2 Not detected Normal NOT DETECTED [facility] Comment on above: Performed By: #### B MP #### [facility] [address] [address] [address] Deepak Greenfield Parainfluenza 3 Not detected Normal NOT DETECTED [facility] Comment on above: Performed By: #### B MP #### [facility] [address] [address] [address] Deepak Greenfield Parainfluenza 4 Not detected Normal NOT DETECTED [facility] Comment on above: Performed By: #### B MP #### [facility] [address] [place] [address] Dr. Deepak Greenfield Rhino/Enterovirus Not detected Normal NOT DETECTED [facility] Comment on above: Performed By: #### B MP #### [facility] [address] [place] [address] Dr. Deepak Greenfield RP2 Header 1 RESPIRATORY PANEL: VIRUSES Normal [facility] Comment on above: Performed By: #### B MP #### [facility] [address] [place] [address] Dr. Deepak Greenfield RP2 Header 2 RESPIRATORY PANEL: BACTERIA Normal [facility] Comment on above: Performed By: #### B MP #### [facility] [address] [place] [address] Dr. Deepak Greenfield RSV Not detected Normal NOT DETECTED [facility] Comment on above: Performed By: #### B MP #### [facility] [address] [place] [address] Dr. Deepak Greenfield SARS-CoV-2 (COVID-19) RNA CINDY+probe Ql (Unsp spec) Not detected Normal NOT DETECTED [facility] Comment on above: Performed By: #### B MP #### [facility] [address] [place] [address] Dr. eDepak Greenfield XR CHEST 1 Von 07-28-2022 XR [...] Akua PEREZ Date: 2022-07-28 20:23 Normal [facility] AMMONIAon 07-27-2022 Ammonia (P) [Moles/Vol] 76 umol/L Critically high 11-32 [facility] Comment on above: Performed By: #### M G, CMP #### [facility] [address] [place] [address] Dr. Deepak Greenfield CBC W MANUAL DIFFon 07-28-19 23 ATYPICAL LYMPH # Normal [facility] Comment on above: Performed By: #### M G, CMP #### [facility] [address] [place] [address] Dr. Deepak Greenfield ATYPICAL LYMPH % Normal [facility] Comment on above: Performed By: #### M G, CMP #### [facility] [address] [place] [address] Dr. Deepak Greenfield BAND # 0.4 103/ul Critically high 0.0-0.3 [facility] Comment on above: Performed By: #### M G, CMP #### [facility] [address] [place] [address] Dr. Deepak Greenfield BAND % 4 % Normal 0-5 [facility] Comment on above: Performed By: #### M G, CMP #### [facility] [address] [place] [address] Dr. Deepak Greenfield BASOM # 0.00 103/ul Normal 0.00-0.10 [facility] Comment on above: Performed By: #### M G, CMP #### [facility] [address] [place] [address] Dr. Deepak Greenfield BASOM % 0.0 % Critically low 0.2-2.0 [facility] Comment on above: Performed By: #### M G, CMP #### [facility] [address] [place] [address] Dr. Deepak Greenfield BLAST # Normal [facility] Comment on above: Performed By: #### M G, CMP #### [facility] [address] [address] [address] Deepak Greenfield BLAST % Normal [facility] Comment on above: Performed By: #### M G, CMP #### [facility] [address] [place] [address] Dr. Deepak Greenfield CORRECTED WBC Normal 4.0-11.0 [facility] Comment on above: Performed By: #### M G, CMP #### [facility] [address] [address] [address] Deepak Greenfield EOS # 0.00 103/ul Normal 0.00-0.70 [facility] Comment on above: Performed By: #### M G, CMP #### [facility] [address] [place] [address] Dr. Deepak Greenfield EOS% 0.0 % Critically low 0.9-7.0 [facility] Comment on above: Performed By: #### M G, CMP #### [facility] [address] [place] [address] Dr. Deepak Greenfield HCT 29.6 % Critically low 42.0-54.0 [facility] Comment on above: Performed By: #### M G, CMP #### [facility] [address] [place] [address] Dr. Deepak Greenfield HGB 10.4 g/dl Critically low 14.0-18.0 [facility] Comment on above: Performed By: #### M G, CMP #### [facility] [address] [place] [address] Dr. Deepak Greenfield LYMPHM # 0.71 103/ul Critically low 1.20-3.80 [facility] Comment on above: Performed By: #### M G, CMP #### [facility] [address] [place] [address] Dr. Deepak Greenfield LYMPHM% 8.0 % Critically low 20.5-60.0 [facility] Comment on above: Performed By: #### M G, CMP #### [facility] [address] [place] [address] Dr. Deepak Greenfield MCH 33.0 pg Normal 25.9-34.0 [facility] Comment on above: Performed By: #### M G, CMP #### [facility] [address] [place] [address] Dr. Deepak Greenfield MCHC 35.1 g/dl Normal 29.9-35.2 [facility] Comment on above: Performed By: #### M G, CMP #### [facility] [address] [place] [address] Dr. Deepak Greenfield MCV 94.0 fL Normal 80.0-94.0 [facility] Comment on above: Performed By: #### M G, CMP #### [facility] [address] [place] [address] Dr. Deepak Greenfield METAMYELOCYTE # Normal [facility] Comment on above: Performed By: #### M G, CMP #### [facility] [address] [place] [address] Dr. Deepak Greenfield METAMYELOCYTE % Normal [facility] Comment on above: Performed By: #### M G, CMP #### [facility] [address] [place] [address] Dr. Deepak Greenfield MONOM# 0.71 103/ul Normal 0.30-0.80 [facility] Comment on above: Performed By: #### M G, CMP #### [facility] [address] [place] [address] Dr. Deepak Greenfield MONOM% 8.0 % Normal 1.7-12.0 [facility] Comment on above: Performed By: #### M G, CMP #### [facility] [address] [place] [address] Dr. Deepak Greenfield MPV 9.6 fL Normal 9.5-13.5 [facility] Comment on above: Performed By: #### M G, CMP #### [facility] [address] [place] [address] Dr. Deepak Greenfield MYELOCYTE # Normal [facility] Comment on above: Performed By: #### M G, CMP #### [facility] [address] [address] [address] Deepak Greenfield MYELOCYTE % Normal [facility] Comment on above: Performed By: #### M G, CMP #### [facility] [address] [address] [address] Deepak Greenfield NRBC Normal [facility] Comment on above: Performed By: #### M G, CMP #### [facility] [address] [address] [address] Deepak Greenfield PLT 267 103/ul Normal 150-450 [facility] Comment on above: Performed By: #### M G, CMP #### [facility] [address] [address] [address] Deepak Greenfield RBC 3.15 106/ul Critically low 4.70-6.10 [facility] Comment on above: Performed By: #### M G, CMP #### [facility] [address] [place] [address] Dr. Deepak Greenfield RDW 12.9 % Normal 11.0-15.0 [facility] Comment on above: Performed By: #### M G, CMP #### [facility] [address] [address] [address] Deepak Greenfield SEG # 7.12 103/ul Critically high 1.40-6.50 [facility] Comment on above: Performed By: #### M G, CMP #### [facility] [address] [address] [address] Deepak Greenfield SEG % 80.0 % Critically high 43.0-75.0 [facility] Comment on above: Performed By: #### M G, CMP #### [facility] [address] [address] [address] Deepak Greenfield WBC 8.9 103/ul Normal 4.0-11.0 [facility] Comment on above: Performed By: #### M G, CMP #### [facility] [address] [address] [address] Deepak Greenfield PROF CHEM 8 (BAS METB)on Anion gap [Moles/Vol] 12.4 mmol/L Normal [facility] Comment on above: Performed By: #### C BC #### [facility] [address] [address] [address] Deepak Greenfield Calcium [Mass/Vol] 8.2 mg/dL Critically low 8.5-10.1 [facility] Comment on above: Performed By: #### C BC #### [facility] [address] [address] [address] Deepak Greenfield Chloride [Moles/Vol] 101 mmol/L Normal 98-107 [facility] Comment on above: Performed By: #### C BC #### [facility] [address] [address] [address] Deepak Greenfield CO2 [Moles/Vol] 25.0 mmol/L Normal 21.0-32.0 [facility] Comment on above: Performed By: #### C BC #### [facility] [address] [place] [address] Dr. Deepak Greenfield Creatinine [Mass/Vol] 0.53 mg/dL Critically low 0.70-1.30 [facility] Comment on above: Performed By: #### C BC #### [facility] [address] [address] [address] Deepak Greenfield EGFR-AF GREENLANDIC >60 Normal >=60 [facility] Comment on above: Performed By: #### C BC #### [facility] [address] [address] [address] Deepak Greenfield EGFR-NON AF GREENLANDIC >60 Normal >=60 [facility] Comment on above: Performed By: #### C BC #### [facility] [address] [address] [address] Deepak Greenfield Glucose [Mass/Vol] 161 mg/dL Critically high 74-106 [facility] Comment on above: Performed By: #### C BC #### [facility] [address] [place] [address] Dr. Deepak Greenfield Potassium [Moles/Vol] 4.4 mmol/L Normal 3.5-5.1 [facility] Comment on above: Performed By: #### C BC #### [facility] [address] [address] [address] Deepak Greenfield Sodium [Moles/Vol] 134 mmol/L Critically low 136-145 [facility] Comment on above: Performed By: #### C BC #### [facility] [address] [address] [address] Deepak Greenfield Urea nitrogen [Mass/Vol] 13.0 mg/dL Normal 7.0-18.0 [facility] Comment on above: Performed By: #### C BC #### [facility] [address] [place] [address] Dr. Deepak Greenfield Urea nitrogen/Creatinine [Mass ratio] 24.5 mg/mg Normal [facility] Comment on above: Performed By: #### C BC #### [facility] [address] [place] [address] Dr. Deepak Greenfield AMMONIAon 07-26-2022 Ammonia (P) [Moles/Vol] 56 umol/L Critically high 11-32 [facility] Comment on above: Performed By: #### M G, CMP #### [facility] [address] [place] [address] Dr. Deepak Greenfield CARDIAC BEATRIS ADMITon 023 CK [Catalytic activity/Vol] 83 U/L Normal 39-308 [facility] Comment on above: Performed By: #### B MP #### [facility] [address] [place] [address] Dr. Deepak Greenfield CK.MB [Mass/Vol] 0.86 ng/mL Normal <=3.60 [facility] Comment on above: Performed By: #### B MP #### [facility] [address] [place] [address] Dr. Deepak Greenfield HSTROP 7.4 pg/mL Normal 4.0-76.1 [facility] Comment on above: Result Comment: CUT- OFF POINTS HAVE BEEN ESTABLISHED BASED ON THE FOURTH UNIVERSAL DEFINITIONS OF MYOCARDIAL INFARCTION. THE UPPER REFERENCE LIMIT (URL) OF TROPONIN, DEFINED THE 99TH PERCENTILE OF cTnI DISTRIBUTION IN A REFERENCE POPULATION, HAS BEEN CONFIRMED THE DECISION THRESHOLD FOR AL DIAGNOSIS. Performed By: #### B MP #### [facility] [address] [place] [address] Dr. Deepak Greenfield VALE 46 ng/mL Normal 16-96 [facility] Comment on above: Performed By: #### B MP #### [facility] [address] [place] [address] Dr. Deepak Greenfield CBC AUTO DIFFon 07-26-2022 BASO # 0.1 103/ul Normal 0.0-0.1 [facility] Comment on above: Performed By: #### M G, CMP #### [facility] [address] [place] [address] Dr. Deepak Greenfield Basophils/100 WBC (Bld) 0.5 % Normal 0.2-2.0 [facility] Comment on above: Performed By: #### M G, CMP #### [facility] [address] [place] [address] Dr. Deepak Greenfield EO # 0.2 103/ul Normal 0.0-0.7 [facility] Comment on above: Performed By: #### M G, CMP #### [facility] [address] [place] [address] Dr. Deepak Greenfield Eosinophils/100 WBC (Bld) 2.1 % Normal 0.9-7.0 [facility] Comment on above: Performed By: #### M G, CMP #### [facility] [address] [place] [address] Dr. Deepak Greenfield Erythrocyte distribution width (RBC) [Ratio] 13.2 % Normal 11.0-15.0 [facility] Comment on above: Performed By: #### M G, CMP #### [facility] [address] [place] [address] Dr. Deepak Greenfield Hematocrit (Bld) [Volume fraction] 36.7 % Critically low 42.0-54.0 [facility] Comment on above: Performed By: #### M G, CMP #### [facility] [address] [place] [address] Dr. Deepak Greenfield Hemoglobin (Bld) [Mass/Vol] 12.4 g/dL Critically low 14.0-18.0 [facility] Comment on above: Performed By: #### M G, CMP #### [facility] [address] [address] [address] Deepak Greenfield IG # 0.04 10e3/ul Critically high 0.00-0.03 [facility] Comment on above: Performed By: #### M G, CMP #### [facility] [address] [address] [address] Deepak Greenfield IG % 0.4 % Normal 0.0-0.5 [facility] Comment on above: Performed By: #### M G, CMP #### [facility] [address] [address] [address] Deepak Greenfield LYMPH # 1.7 103/ul Normal 1.2-3.8 [facility] Comment on above: Performed By: #### M G, CMP #### [facility] [address] [address] [address] Deepak Greenfield Lymphocytes/100 WBC (Bld) 15.6 % Critically low 20.5-60.0 [facility] Comment on above: Performed By: #### M G, CMP #### [facility] [address] [address] [address] Deepak Greenfield MANUAL DIFF REQ NO Normal [facility] Comment on above: Performed By: #### M G, CMP #### [facility] [address] [address] [address] Deepak Greenfield MCH (RBC) [Entitic mass] 32.5 pg Normal 25.9-34.0 [facility] Comment on above: Performed By: #### M G, CMP #### [facility] [address] [address] [address] Deepak Greenfield MCHC (RBC) [Mass/Vol] 33.8 g/dL Normal 29.9-35.2 [facility] Comment on above: Performed By: #### M G, CMP #### [facility] [address] [address] [address] Deepak Greenfield MCV (RBC) [Entitic vol] 96.3 fL Critically high 80.0-94.0 [facility] Comment on above: Performed By: #### M G, CMP #### [facility] [address] [place] [address] Dr. Deepak Greenfield MONO # 1.4 103/ul Critically high 0.3-0.8 [facility] Comment on above: Performed By: #### M G, CMP #### [facility] [address] [place] [address] Dr. Deepak Greenfield Monocytes/100 WBC (Bld) 12.8 % Critically high 1.7-12.0 [facility] Comment on above: Performed By: #### M G, CMP #### [facility] [address] [place] [address] Dr. Deepak Greenfield NEUT # 7.4 103/ul Critically high 1.4-6.5 [facility] Comment on above: Performed By: #### M G, CMP #### [facility] [address] [place] [address] Dr. Deepak Greenfield Neutrophils/100 WBC (Bld) 68.6 % Normal 43.0-75.0 [facility] Comment on above: Performed By: #### M G, CMP #### [facility] [address] [place] [address] Dr. Deepak Greenfield Platelet mean volume (Bld) [Entitic vol] 9.5 fL Normal 9.5-13.5 [facility] Comment on above: Performed By: #### M G, CMP #### [facility] [address] [place] [address] Dr. Deepak Greenfield PLT 314 103/ul Normal 150-450 [facility] Comment on above: Performed By: #### M G, CMP #### [facility] [address] [place] [address] Dr. Deepak Greenfield RBC 3.81 106/ul Critically low 4.70-6.10 [facility] Comment on above: Performed By: #### M G, CMP #### [facility] [address] [place] [address] Dr. Deepak Greenfield WBC 10.8 103/ul Normal 4.0-11.0 [facility] Comment on above: Performed By: #### M G, CMP #### [facility] [address] [address] [address] Deepak Greenfield Covid-19 PCR (CVDTB)on SARS-CoV-2 (COVID-19) RNA CINDY+probe Ql (Unsp spec) Not detected Normal NOT DETECTED [facility] Comment on above: Result Comment: When [...] for this test is supported by the [place] of Health and Human Service's declaration that [...] used). Performed By: #### C VDTB #### [facility] [address] [place] [address] Dr. Deepak Greenfield INFLUENZA A AND B AGon 07-26 [facility] SEE BELOW Normal [facility] Comment on above: Result Comment: Nega tive for Flu A protein angiten. Infection due to Flu A cannot be ruled out. Flu A angiten in the sample may be below the detection limit of the test. Performed By: #### I NFLUAB #### [facility] [address] [address] [address] Deepak Greenfield INFLUBNEG SEE BELOW Normal [facility] Comment on above: Result Comment: Nega tive for Flu B protein antigen. Infection due to Flu B cannot be ruled out. Flu B antigen in the sample may be below the detection limit of the test. Performed By: #### I NFLUAB #### [facility] [address] [place] [address] Dr. Deepak Greenfield INFLUENZA A AG Negative Normal NEGATIVE SEE COMMENT [facility] Comment on above: Performed By: #### I NFLUAB #### [facility] [address] [place] [address] Dr. Deepak Greenfield INFLUENZA B AG Negative Normal NEGATIVE SEE COMMENT [facility] Comment on above: Performed By: #### I NFLUAB #### [facility] [address] [address] [address] Deepak Greenfield LACTATE/LACTIC ACIDon 2022 Lactate [Moles/Vol] 1.2 mmol/L Normal 0.4-2.0 [facility] Comment on above: Performed By: #### M G, CMP #### [facility] [address] [place] [address] Dr. Deepak Greenfield PROF 14(COMP METB)on 023 Albumin [Mass/Vol] 3.3 g/dL Critically low 3.4-5.0 [facility] Comment on above: Performed By: #### B MP #### [facility] [address] [place] [address] Dr. Deepak Greenfield Albumin/Globulin [Mass ratio] 0.8 {ratio} Normal [facility] Comment on above: Performed By: #### B MP #### [facility] [address] [place] [address] Dr. Deepak Greenfield ALP [Catalytic activity/Vol] 45 U/L Critically low 46-116 [facility] Comment on above: Performed By: #### B MP #### [facility] [address] [place] [address] Dr. Deepak Greenfield ALT [Catalytic activity/Vol] 114 U/L Critically high 16-63 [facility] Comment on above: Performed By: #### B MP #### [facility] [address] [place] [address] Dr. Deepak Greenfield Anion gap [Moles/Vol] 14.5 mmol/L Normal [facility] Comment on above: Performed By: #### B MP #### [facility] [address] [address] [address] Deepak Greenfield AST [Catalytic activity/Vol] 71 U/L Critically high 15-37 [facility] Comment on above: Performed By: #### B MP #### [facility] [address] [place] [address] Dr. Deepak Greenfield Bilirubin [Mass/Vol] 0.7 mg/dL Normal 0.2-1.0 [facility] Comment on above: Performed By: #### B MP #### [facility] [address] [place] [address] Dr. Deepak Greenfield Calcium [Mass/Vol] 9.1 mg/dL Normal 8.5-10.1 [facility] Comment on above: Performed By: #### B MP #### [facility] [address] [place] [address] Dr. Deepak Greenfield Chloride [Moles/Vol] 98 mmol/L Normal 98-107 [facility] Comment on above: Performed By: #### B MP #### [facility] [address] [place] [address] Dr. Deepak Greenfield CO2 [Moles/Vol] 27.4 mmol/L Normal 21.0-32.0 [facility] Comment on above: Performed By: #### B MP #### [facility] [address] [place] [address] Dr. Deepak Greenfield Creatinine [Mass/Vol] 0.65 mg/dL Critically low 0.70-1.30 [facility] Comment on above: Performed By: #### B MP #### [facility] [address] [place] [address] Dr. Deepak Greenfield EGFR-AF GRE[place]IC >60 Normal >=60 [facility] Comment on above: Performed By: #### B MP #### [facility] [address] [place] [address] Dr. Deepak Greenfield EGFR-NON AF GRE[place]IC >60 Normal >=60 [facility] Comment on above: Performed By: #### B MP #### [facility] [address] [place] [address] Dr. Deepak Greenfield Globulin (S) [Mass/Vol] 4.2 g/dL Normal [facility] Comment on above: Performed By: #### B MP #### [facility] [address] [place] [address] Dr. Deepak Greenfield Glucose [Mass/Vol] 105 mg/dL Normal 74-106 [facility] Comment on above: Performed By: #### B MP #### [facility] [address] [address] [address] Deepak Greenfield Potassium [Moles/Vol] 3.9 mmol/L Normal 3.5-5.1 [facility] Comment on above: Performed By: #### B MP #### [facility] [address] [place] [address] Dr. Deepak Greenfield Protein [Mass/Vol] 7.5 g/dL Normal 6.4-8.2 [facility] Comment on above: Performed By: #### B MP #### [facility] [address] [place] [address] Dr. Deepak Greenfield Sodium [Moles/Vol] 136 mmol/L Normal 136-145 [facility] Comment on above: Performed By: #### B MP #### [facility] [address] [place] [address] Dr. Deepak Greenfield Urea nitrogen [Mass/Vol] 13.0 mg/dL Normal 7.0-18.0 [facility] Comment on above: Performed By: #### B MP #### [facility] [address] [place] [address] Dr. Deepak Greenfield Urea nitrogen/Creatinine [Mass ratio] 20.0 mg/mg Normal [facility] Comment on above: Performed By: #### B MP #### [facility] [address] [address] [address] Deepak Greenfield XR CHEST 1 Von [...] by: ANICETO GARCIA Date: 2022-07-26 12:27 Normal [facility] Consent for Treatmenton 04-0 Consent for Treatment [id number]:127 Normal [facility] Physician Orderon 07-23-2022 Physician Order [id number] 1.00CD:127 Normal [facility] XR Adult Swallowing Function w/ Videoon [...] mGy = 11.70 DAP = 270.92 Normal [facility] AMMONIAon 06-03-2022 Ammonia (P) [Moles/Vol] 112 umol/L Critically high 11-32 [facility] Comment on above: Performed By: #### A MM #### [facility] [address] [place] [address] Dr. Deepak Greenfield DEPAKENE/ VALPROIC ACIDon DEPAKENE 94.0 ug/ml Normal 50.0-100.0 [facility] Comment on above: Performed By: #### C BC #### [facility] [address] [place] [address] Dr. Deepak Greenfield LIVER PROFILEon 06-03-2022 Albumin [Mass/Vol] 3.6 g/dL Normal 3.4-5.0 [facility] Comment on above: Performed By: #### C BC #### [facility] [address] [place] [address] Dr. Deepak Greenfield Albumin/Globulin [Mass ratio] 0.9 {ratio} Normal [facility] Comment on above: Performed By: #### C BC #### [facility] [address] [place] [address] Dr. Deepak Greenfield ALP [Catalytic activity/Vol] 55 U/L Normal 46-116 [facility] Comment on above: Performed By: #### C BC #### [facility] [address] [place] [address] Dr. Deepak Greenfield ALT [Catalytic activity/Vol] 76 U/L Critically high 16-63 [facility] Comment on above: Performed By: #### C BC #### [facility] [address] [place] [address] Dr. Deepak Greenfield AST [Catalytic activity/Vol] 51 U/L Critically high 15-37 [facility] Comment on above: Performed By: #### C BC #### [facility] [address] [place] [address] Dr. Deepak Greenfield BILI, CONJUGATED 0.1 mg/dL Normal 0.0-0.2 [facility] Comment on above: Performed By: #### C BC #### [facility] [address] [place] [address] Dr. Deepak Greenfield Bilirubin [Mass/Vol] 0.4 mg/dL Normal 0.2-1.0 [facility] Comment on above: Performed By: #### C BC #### [facility] [address] [place] [address] Dr. Deepak Greenfield Globulin (S) [Mass/Vol] 4.1 g/dL Normal [facility] Comment on above: Performed By: #### C BC #### [facility] [address] [place] [address] Dr. Deepak Greenfield Protein [Mass/Vol] 7.7 g/dL Normal 6.4-8.2 [facility] Comment on above: Performed By: #### C BC #### [facility] [address] [place] [address] Dr. Deepak Greenfield AMMONIAon 04-22-2022 Ammonia (P) [Moles/Vol] 108 umol/L Critically high 32 [facility] Comment on above: Performed By: #### B MP #### [facility] [address] [place] [address] Dr. Deepak Greenfield CBC AUTO DIFFon 04-22-2022 BASO # 0.0 103/ul Normal 0.0-0.1 [facility] Comment on above: Performed By: #### C BC #### [facility] [address] [place] [address] Dr. Deepak Greenfield Basophils/100 WBC (Bld) 0.5 % Normal 0.2-2.0 [facility] Comment on above: Performed By: #### C BC #### [facility] [address] [place] [address] Dr. Deepak Greenfield EO # 0.1 103/ul Normal 0.0-0.7 [facility] Comment on above: Performed By: #### C BC #### [facility] [address] [place] [address] Dr. Deepak Greenfield Eosinophils/100 WBC (Bld) 1.4 % Normal 0.9-7.0 [facility] Comment on above: Performed By: #### C BC #### [facility] [address] [place] [address] Dr. Deepak Greenfield Erythrocyte distribution width (RBC) [Ratio] 14.2 % Normal 11.0-15.0 [facility] Comment on above: Performed By: #### C BC #### [facility] [address] [place] [address] Dr. eDepak Greenfield Hematocrit (Bld) [Volume fraction] 37.0 % Critically low 42.0-54.0 [facility] Comment on above: Performed By: #### C BC #### [facility] [address] [place] [address] Dr. Deepak Greenfield Hemoglobin (Bld) [Mass/Vol] 12.3 g/dL Critically low 14.0-18.0 [facility] Comment on above: Performed By: #### C BC #### [facility] [address] [place] [address] Dr. Deepak Greenfield IG # 0.00 10e3/ul Normal 0.00-0.03 [facility] Comment on above: Performed By: #### C BC #### [facility] [address] [place] [address] Dr. Deepak Greenfield IG % 0.0 % Normal 0.0-0.5 [facility] Comment on above: Performed By: #### C BC #### [facility] [address] [place] [address] Dr. Deepak Greenfield LYMPH # 3.3 103/ul Normal 1.2-3.8 [facility] Comment on above: Performed By: #### C BC #### [facility] [address] [place] [address] Dr. Deepak Greenfield Lymphocytes/100 WBC (Bld) 51.5 % Normal 20.5-60.0 [facility] Comment on above: Performed By: #### C BC #### [facility] [address] [place] [address] Dr. Deepak Greenfield MANUAL DIFF REQ NO Normal [facility] Comment on above: Performed By: #### C BC #### [facility] [address] [place] [address] Dr. Deepak Greenfield MCH (RBC) [Entitic mass] 32.2 pg Normal 25.9-34.0 [facility] Comment on above: Performed By: #### C BC #### [facility] [address] [address] [address] Deepak Greenfield MCHC (RBC) [Mass/Vol] 33.2 g/dL Normal 29.9-35.2 [facility] Comment on above: Performed By: #### C BC #### [facility] [address] [address] [address] Deepak Greenfield MCV (RBC) [Entitic vol] 96.9 fL Critically high 80.0-94.0 [facility] Comment on above: Performed By: #### C BC #### [facility] [address] [address] [address] Deepak Greenfield MONO # 0.6 103/ul Normal 0.3-0.8 [facility] Comment on above: Performed By: #### C BC #### [facility] [address] [place] [address] Dr. Deepak Greenfield Monocytes/100 WBC (Bld) 9.7 % Normal 1.7-12.0 [facility] Comment on above: Performed By: #### C BC #### [facility] [address] [place] [address] Dr. Deepak Greenfield NEUT # 2.4 103/ul Normal 1.4-6.5 [facility] Comment on above: Performed By: #### C BC #### [facility] [address] [place] [address] Dr. Deepak Greenfield Neutrophils/100 WBC (Bld) 36.9 % Critically low 43.0-75.0 [facility] Comment on above: Performed By: #### C BC #### [facility] [address] [address] [address] Deepak Greenfield Platelet mean volume (Bld) [Entitic vol] 10.2 fL Normal 9.5-13.5 [facility] Comment on above: Performed By: #### C BC #### [facility] [address] [place] [address] Dr. Deepak Greenfield PLT 248 103/ul Normal 150-450 [facility] Comment on above: Performed By: #### C BC #### [facility] [address] [place] [address] Dr. Deepak Greenfield RBC 3.82 106/ul Critically low 4.70-6.10 [facility] Comment on above: Performed By: #### C BC #### [facility] [address] [place] [address] Dr. Deepak Greenfield WBC 6.5 103/ul Normal 4.0-11.0 [facility] Comment on above: Performed By: #### C BC #### [facility] [address] [place] [address] Dr. Deepak Greenfield FERRITINon 04-22-2022 Ferritin [Mass/Vol] 152.0 ng/mL Normal 26.0-388.0 [facility] Comment on above: Performed By: #### M G, CMP #### [facility] [address] [place] [address] Dr. Deepak Greenfield IRONon 04-22-2022 Iron [Mass/Vol] 136.0 ug/dL Normal 65.0-175.0 [facility] Comment on above: Performed By: #### Karishma Bajwa, CMP #### [facility] [address] [place] [address] Dr. Deepak Greenfield MAGNESIUMon 04-22-2022 Magnesium [Mass/Vol] 1.6 mg/dL Critically low 1.8-2.4 [facility] Comment on above: Performed By: #### I NFLUAB #### [facility] [address] [place] [address] Dr. Deepak Greenfield VITAMIN B12on 04-22-2022 Cobalamin (Vitamin B12) [Mass/Vol] 545.0 pg/mL Normal 193.0-986.0 [facility] Comment on above: Performed By: #### M G, CMP #### [facility] [address] [place] [address] Dr. Deepak Greenfield CBC AUTO DIFFon 03-19-2022 BASO # 0.0 103/ul Normal 0.0-0.1 [facility] Comment on above: Performed By: #### M G, CMP #### [facility] [address] [place] [address] Dr. Deepak Greenfield Basophils/100 WBC (Bld) 0.5 % Normal 0.2-2.0 [facility] Comment on above: Performed By: #### M G, CMP #### [facility] [facility] [address] [place] [address] Dr. Deepak Greenfield EO # 0.2 103/ul Normal 0.0-0.7 [facility] Comment on above: Performed By: #### M G, CMP #### [facility] [address] [place] [address] Dr. Deepak Greenfield Eosinophils/100 WBC (Bld) 2.0 % Normal 0.9-7.0 [facility] Comment on above: Performed By: #### M G, CMP #### [facility] [address] [place] [address] Dr. Deepak Greenfield Erythrocyte distribution width (RBC) [Ratio] 13.5 % Normal 11.0-15.0 [facility] Comment on above: Performed By: #### M G, CMP #### [facility] [address] [place] [address] Dr. Deepak Greenfield Hematocrit (Bld) [Volume fraction] 38.5 % Critically low 42.0-54.0 [facility] Comment on above: Performed By: #### M G, CMP #### [facility] [address] [place] [address] Dr. Deepak Greenfield Hemoglobin (Bld) [Mass/Vol] 12.6 g/dL Critically low 14.0-18.0 [facility] Comment on above: Performed By: #### M G, CMP #### [facility] [address] [place] [address] Dr. Deepak Greenfield IG # 0.02 10e3/ul Normal 0.00-0.03 [facility] Comment on above: Performed By: #### M G, CMP #### [facility] [address] [place] [address] Dr. Deepak Greenfield IG % 0.2 % Normal 0.0-0.5 [facility] Comment on above: Performed By: #### M G, CMP #### [facility] [address] [address] [address] Deepak Greenfield LYMPH # 3.1 103/ul Normal 1.2-3.8 [facility] Comment on above: Performed By: #### M G, CMP #### [facility] [address] [address] [address] Deepak Greenfield Lymphocytes/100 WBC (Bld) 36.2 % Normal 20.5-60.0 [facility] Comment on above: Performed By: #### M G, CMP #### [facility] [address] [address] [address] Deepak Greenfield MANUAL DIFF REQ NO Normal [facility] Comment on above: Performed By: #### M G, CMP #### [facility] [address] [place] [address] Dr. Deepak Greenfield MCH (RBC) [Entitic mass] 32.1 pg Normal 25.9-34.0 [facility] Comment on above: Performed By: #### M G, CMP #### [facility] [address] [address] [address] Deepak Greenfield MCHC (RBC) [Mass/Vol] 32.7 g/dL Normal 29.9-35.2 [facility] Comment on above: Performed By: #### M G, CMP #### [facility] [address] [address] [address] Deepak Greenfield MCV (RBC) [Entitic vol] 98.0 fL Critically high 80.0-94.0 [facility] Comment on above: Performed By: #### M G, CMP #### [facility] [address] [address] [address] Deepak Greenfield MONO # 0.9 103/ul Critically high 0.3-0.8 [facility] Comment on above: Performed By: #### M G, CMP #### [facility] [address] [address] [address] Deepak Greenfield Monocytes/100 WBC (Bld) 10.6 % Normal 1.7-12.0 [facility] Comment on above: Performed By: #### M G, CMP #### [facility] [address] [address] [address] Deepak Greenfield NEUT # 4.3 103/ul Normal 1.4-6.5 [facility] Comment on above: Performed By: #### M G, CMP #### [facility] [address] [address] [address] Deepak Greenfield Neutrophils/100 WBC (Bld) 50.5 % Normal 43.0-75.0 [facility] Comment on above: Performed By: #### M G, CMP #### [facility] [address] [address] [address] Deepak Greenfield Platelet mean volume (Bld) [Entitic vol] 9.9 fL Normal 9.5-13.5 [facility] Comment on above: Performed By: #### M G, CMP #### [facility] [address] [address] [address] Deepak Greenfield PLT 263 103/ul Normal 150-450 [facility] Comment on above: Performed By: #### M G, CMP #### [facility] [address] [address] [address] Deepak Greenfield RBC 3.93 106/ul Critically low 4.70-6.10 [facility] Comment on above: Performed By: #### M G, CMP #### [facility] [address] [address] [address] Deepak Greenfield WBC 8.6 103/ul Normal 4.0-11.0 [facility] Comment on above: Performed By: #### M G, CMP #### [facility] [address] [address] [address] Deepak Greenfield MAGNESIUMon 03-19-2022 Magnesium [Mass/Vol] 1.5 mg/dL Critically low 1.8-2.4 [facility] Comment on above: Performed By: #### M G, CMP #### [facility] [address] [place] [address] Dr. Deepak Greenfield PROF 14(COMP METB)on 022 Albumin [Mass/Vol] 3.4 g/dL Normal 3.4-5.0 [facility] Comment on above: Performed By: #### M G, CMP #### [facility] [address] [place] [address] Dr. Deepak Greenfield Albumin/Globulin [Mass ratio] 0.9 {ratio} Normal [facility] Comment on above: Performed By: #### M G, CMP #### [facility] [address] [address] [address] Deepak Greenfield ALP [Catalytic activity/Vol] 47 U/L Normal 46-116 [facility] Comment on above: Performed By: #### M G, CMP #### [facility] [address] [place] [address] Dr. Deepak Greenfield ALT [Catalytic activity/Vol] 48 U/L Normal 16-63 [facility] Comment on above: Performed By: #### M G, CMP #### [facility] [address] [place] [address] Dr. Deepak Greenfield Anion gap [Moles/Vol] 9.5 mmol/L Normal [facility] Comment on above: Performed By: #### M G, CMP #### [facility] [address] [place] [address] Dr. Deepak Greenfield AST [Catalytic activity/Vol] 30 U/L Normal 15-37 [facility] Comment on above: Performed By: #### M G, CMP #### [facility] [address] [place] [address] Dr. Deepak Greenfield Bilirubin [Mass/Vol] 0.2 mg/dL Normal 0.2-1.0 [facility] Comment on above: Performed By: #### M G, CMP #### [facility] [address] [place] [address] Dr. Deepak Greenfield Calcium [Mass/Vol] 8.7 mg/dL Normal 8.5-10.1 [facility] Comment on above: Performed By: #### M G, CMP #### [facility] [address] [place] [address] Dr. Deepak Greenfield Chloride [Moles/Vol] 105 mmol/L Normal 98-107 [facility] Comment on above: Performed By: #### M G, CMP #### [facility] [address] [place] [address] Dr. Deepak Greenfield CO2 [Moles/Vol] 32.6 mmol/L Critically high 21.0-32.0 [facility] Comment on above: Performed By: #### M G, CMP #### [facility] [address] [address] [address] Deepak Greenfield Creatinine [Mass/Vol] 0.70 mg/dL Normal 0.70-1.30 [facility] Comment on above: Performed By: #### M G, CMP #### [facility] [address] [place] [address] Dr. Deepak Greenfield EGFR-AF GREENLANDIC >60 Normal >=60 [facility] Comment on above: Performed By: #### M G, CMP #### [facility] [address] [place] [address] Dr. Deepak Greenfield EGFR-NON AF GREENLANDIC >60 Normal >=60 [facility] Comment on above: Performed By: #### M G, CMP #### [facility] [address] [place] [address] Dr. Deepak Greenfield Globulin (S) [Mass/Vol] 3.8 g/dL Normal [facility] Comment on above: Performed By: #### M G, CMP #### [facility] [address] [place] [address] Dr. Deepak Greenfield Glucose [Mass/Vol] 98 mg/dL Normal 74-106 [facility] Comment on above: Performed By: #### M G, CMP #### [facility] [address] [address] [address] Deepak Greenfield Potassium [Moles/Vol] 4.1 mmol/L Normal 3.5-5.1 [facility] Comment on above: Performed By: #### M G, CMP #### [facility] [address] [place] [address] Dr. Deepak Greenfield Protein [Mass/Vol] 7.2 g/dL Normal 6.4-8.2 [facility] Comment on above: Performed By: #### M Lacy, CMP #### [facility] [address] [place] [address] Dr. Deepak Greenfield Sodium [Moles/Vol] 143 mmol/L Normal 136-145 [facility] Comment on above: Performed By: #### M Lacy, CMP #### [facility] [address] [place] [address] Dr. Deepak Greenfield Urea nitrogen [Mass/Vol] 10.0 mg/dL Normal 7.0-18.0 [facility] Comment on above: Performed By: #### Karishma Bajwa, CMP #### [facility] [address] [place] [address] Dr. Deepak Greenfield Urea nitrogen/Creatinine [Mass ratio] 14.3 mg/mg Normal [facility] Comment on above: Performed By: #### Karishma Bajwa, CMP #### [facility] [address] [place] [address] Dr. Deepak Greenfield VITAMIN D 25 OHon 03-19-2022 VIT D 25-OH 67.5 ng/mL Normal [facility] Comment on above: Performed By: #### Karishma Bajwa, CMP #### [facility] [address] [place] [address] Dr. Deepak Greenfield VIT D RANGES SEE BELOW Normal [facility] Comment on above: Result Comment: <20 ng/mL Vit D deficient 20 - <30 ng/mL Vit D insufficient 30 - 100 ng/mL Vit D sufficient >100 ng/mL Potential Toxicity Performed By: #### Karishma Bajwa, CMP #### [facility] [address] [place] [address] Dr. Deepak Greenfield AMMONIAon 03-10-2022 Ammonia (P) [Moles/Vol] 36 umol/L Critically high [facility] Comment on above: Performed By: #### C BC #### [facility] [address] [place] [address] Dr. Deepak Greenfield DEPAKENE/ VALPROIC ACIDon DEPAKENE 93.5 ug/ml Normal 50.0-100.0 [facility] Comment on above: Performed By: #### B MP #### [facility] [address] [place] [address] Dr. Deepak Greenfield BNPon 01-24-2022 Natriuretic peptide B (Bld) [Mass/Vol] 183.0 pg/mL Normal <=450.0 [facility] Comment on above: Performed By: #### M G, CMP #### [facility] [address] [place] [address] Dr. Deepak Greenfield CBC AUTO DIFFon 01-24-2022 BASO # 0.0 103/ul Normal 0.0-0.1 [facility] Comment on above: Performed By: #### C VDTBH #### [facility] [address] [place] [address] Dr. Deepak Greenfield Basophils/100 WBC (Bld) 0.3 % Normal 0.2-2.0 [facility] Comment on above: Performed By: #### C VDTBH #### [facility] [address] [place] [address] Dr. Deepak Greenfield EO # 0.1 103/ul Normal 0.0-0.7 [facility] Comment on above: Performed By: #### C VDTBH #### [facility] [address] [place] [address] Dr. Deepak Greenfield Eosinophils/100 WBC (Bld) 0.4 % Critically low 0.9-7.0 [facility] Comment on above: Performed By: #### C VDTBH #### [facility] [address] [place] [address] Dr. Deepak Greenfield Erythrocyte distribution width (RBC) [Ratio] 13.6 % Normal 11.0-15.0 [facility] Comment on above: Performed By: #### C VDTBH #### [facility] [address] [place] [address] Dr. Deepak Greenfield Hematocrit (Bld) [Volume fraction] 39.3 % Critically low 42.0-54.0 [facility] Comment on above: Performed By: #### C VDTBH #### [facility] [address] [place] [address] Dr. Deepak Greenfield Hemoglobin (Bld) [Mass/Vol] 12.6 g/dL Critically low 14.0-18.0 [facility] Comment on above: Performed By: #### C VDTBH #### [facility] [address] [place] [address] Dr. Deepak Greenfield IG # 0.04 10e3/ul Critically high 0.00-0.03 [facility] Comment on above: Performed By: #### C VDTBH #### [facility] [address] [place] [address] Dr. Deepak Greenfield IG % 0.3 % Normal 0.0-0.5 [facility] Comment on above: Performed By: #### C VDTBH #### [facility] [address] [place] [address] Dr. Deepak Greenfield LYMPH # 2.4 103/ul Normal 1.2-3.8 [facility] Comment on above: Performed By: #### C VDTBH #### [facility] [address] [place] [address] Dr. Deepak Greenfield Lymphocytes/100 WBC (Bld) 16.6 % Critically low 20.5-60.0 [facility] Comment on above: Performed By: #### C VDTBH #### [facility] [address] [place] [address] Dr. Deepak Greenfield MANUAL DIFF REQ NO Normal [facility] Comment on above: Performed By: #### C VDTBH #### [facility] [address] [place] [address] Dr. Deepak Greenfield MCH (RBC) [Entitic mass] 32.0 pg Normal 25.9-34.0 [facility] Comment on above: Performed By: #### C VDTBH #### [facility] [address] [place] [address] Dr. Deepak Greenfield MCHC (RBC) [Mass/Vol] 32.1 g/dL Normal 29.9-35.2 [facility] Comment on above: Performed By: #### C VDTBH #### [facility] [address] [address] [address] Deepak Greenfield MCV (RBC) [Entitic vol] 99.7 fL Critically high 80.0-94.0 [facility] Comment on above: Performed By: #### C VDTBH #### [facility] [address] [place] [address] Dr. Deepak Greenfield MONO # 1.4 103/ul Critically high 0.3-0.8 [facility] Comment on above: Performed By: #### C VDTBH #### [facility] [address] [place] [address] Dr. Deepak Greenfield Monocytes/100 WBC (Bld) 9.8 % Normal 1.7-12.0 [facility] Comment on above: Performed By: #### C VDTBH #### [facility] [address] [place] [address] Dr. Deepak Greenfield NEUT # 10.7 103/ul Critically high 1.4-6.5 [facility] Comment on above: Performed By: #### C VDTBH #### [facility] [address] [place] [address] Dr. Deepak Greenfield Neutrophils/100 WBC (Bld) 72.6 % Normal 43.0-75.0 [facility] Comment on above: Performed By: #### C VDTBH #### [facility] [address] [place] [address] Dr. Deepak Greenfield Platelet mean volume (Bld) [Entitic vol] 10.4 fL Normal 9.5-13.5 [facility] Comment on above: Performed By: #### C VDTBH #### [facility] [address] [place] [address] Dr. Deepak Greenfield PLT 280 103/ul Normal 150-450 [facility] Comment on above: Performed By: #### C VDTBH #### [facility] [address] [place] [address] Dr. Deepak Greenfield RBC 3.94 106/ul Critically low 4.70-6.10 [facility] Comment on above: Performed By: #### C VDTBH #### [facility] [address] [place] [address] Dr. Deepak Greenfield WBC 14.7 103/ul Critically high 4.0-11.0 [facility] Comment on above: Performed By: #### C VDTBH #### [facility] [address] [place] [address] Dr. Deepak Greenfield CULTURE BLOODon 01-24-2022 Microscopic examination of blood, culture Culture Observations: No growth at 5 days. Normal [facility] Comment on above: Performed By: #### C BC #### [facility] [address] [place] [address] Dr. Deepak Greenfield Microscopic examination of blood, culture Culture Observations: No growth at 5 days. Normal [facility] Comment on above: Performed By: #### C BC #### [facility] [address] [place] [address] Dr. Deepak Greenfield Covid-19 PCR ([facility])on SARS-CoV-2 (COVID-19) RNA CINDY+probe Ql (Unsp spec) Not detected Normal NOT DETECTED [facility] Comment on above: Result Comment: When [...] for this test is supported by the [place] of Health and Human Service's declaration that [...] used). Performed By: #### I NFLUAB #### [facility] [address] [place] [address] Dr. Deepak Greenfield LACTATE/LACTIC ACIDon 2021 Lactate [Moles/Vol] 1.7 mmol/L Normal 0.4-1.9 [facility] Comment on above: Performed By: #### M G, CMP #### [facility] [address] [place] [address] Dr. Deepak Greenfield PROF 14(COMP METB)on 022 Albumin [Mass/Vol] 3.2 g/dL Critically low 3.4-5.0 [facility] Comment on above: Performed By: #### M G, CMP #### [facility] [address] [address] [address] Deepak Greenfield Albumin/Globulin [Mass ratio] 0.7 {ratio} Normal [facility] Comment on above: Performed By: #### M G, CMP #### [facility] [address] [place] [address] Dr. Deepak Greenfield ALP [Catalytic activity/Vol] 49 U/L Normal 46-116 [facility] Comment on above: Performed By: #### M G, CMP #### [facility] [address] [address] [address] Deepak Greenfield ALT [Catalytic activity/Vol] 41 U/L Normal 16-63 [facility] Comment on above: Performed By: #### M G, CMP #### [facility] [address] [place] [address] Dr. Deepak Greenfield Anion gap [Moles/Vol] 11.1 mmol/L Normal [facility] Comment on above: Performed By: #### M G, CMP #### [facility] [address] [place] [address] Dr. Deepak Greenfield AST [Catalytic activity/Vol] 29 U/L Normal 15-37 [facility] Comment on above: Performed By: #### M G, CMP #### [facility] [address] [place] [address] Dr. Deepak Greenfield Bilirubin [Mass/Vol] 0.5 mg/dL Normal 0.2-1.0 [facility] Comment on above: Performed By: #### M G, CMP #### [facility] [address] [address] [address] Deepak Greenfield Calcium [Mass/Vol] 9.1 mg/dL Normal 8.5-10.1 [facility] Comment on above: Performed By: #### M G, CMP #### [facility] [address] [address] [address] Deepak Greenfield Chloride [Moles/Vol] 108 mmol/L Critically high 98-107 [facility] Comment on above: Performed By: #### M G, CMP #### [facility] [address] [address] [address] Deepak Greenfield CO2 [Moles/Vol] 25.7 mmol/L Normal 21.0-32.0 [facility] Comment on above: Performed By: #### M G, CMP #### [facility] [address] [place] [address] Dr. Deepak Greenfield Creatinine [Mass/Vol] 0.89 mg/dL Normal 0.70-1.30 [facility] Comment on above: Performed By: #### M G, CMP #### [facility] [address] [place] [address] Dr. Deepak Greenfield EGFR-AF GRE[place]IC >60 Normal >=60 [facility] Comment on above: Performed By: #### M G, CMP #### [facility] [address] [place] [address] Dr. Deepak Greenfield EGFR-NON AF [place]IC >60 Normal >=60 [facility] Comment on above: Performed By: #### M G, CMP #### [facility] [address] [place] [address] Dr. Deepak Greenfield Globulin (S) [Mass/Vol] 4.5 g/dL Normal [facility] Comment on above: Performed By: #### M G, CMP #### [facility] [address] [place] [address] Dr. Deepak Greenfield Glucose [Mass/Vol] 178 mg/dL Critically high 74-106 [facility] Comment on above: Performed By: #### M G, CMP #### [facility] [address] [address] [address] Deepak Greenfield Potassium [Moles/Vol] 3.8 mmol/L Normal 3.5-5.1 [facility] Comment on above: Performed By: #### M G, CMP #### [facility] [address] [address] [address] Deepak Greenfield Protein [Mass/Vol] 7.7 g/dL Normal 6.4-8.2 [facility] Comment on above: Performed By: #### M G, CMP #### [facility] [address] [address] [address] Deepak Greenfield Sodium [Moles/Vol] 141 mmol/L Normal 136-145 [facility] Comment on above: Performed By: #### M G, CMP #### [facility] [address] [address] [address] Deepak Greenfield Urea nitrogen [Mass/Vol] 16.0 mg/dL Normal 7.0-18.0 [facility] Comment on above: Performed By: #### M G, CMP #### [facility] [address] [address] [address] Deepak Greenfield Urea nitrogen/Creatinine [Mass ratio] 18.0 mg/mg Normal [facility] Comment on above: Performed By: #### M G, CMP #### [facility] [address] [place] [address] Dr. Deepak Greenfield TROPONIN, HIGH SENSITIVITYon 01-24-2022 HSTROP 6.4 pg/mL Normal 4.0-76.1 [facility] Comment on above: Result Comment: CUT- OFF POINTS HAVE BEEN ESTABLISHED BASED ON THE FOURTH UNIVERSAL DEFINITIONS OF MYOCARDIAL INFARCTION. THE UPPER REFERENCE LIMIT (URL) OF TROPONIN, DEFINED THE 99TH PERCENTILE OF cTnI DISTRIBUTION IN A REFERENCE POPULATION, HAS BEEN CONFIRMED THE DECISION THRESHOLD FOR AL DIAGNOSIS. Performed By: #### M G, CMP #### [facility] [address] [place] [address] Dr. Deepak Greenfield XR CHEST 1 Von [...] ANICETO CROCKER Date: 2022-01-24 15:28 Normal [facility] UA RANDOM W/MICROSCOPICon BACTERIA NONE SEEN Normal NONE SEEN [facility] Comment on above: Performed By: #### C VDTBH #### [facility] [address] [place] [address] Dr. Deepak Greenfield Bilirubin Ql (U) Negative Normal NEGATIVE [facility] Comment on above: Performed By: #### C VDTBH #### [facility] [address] [place] [address] Dr. Deepak Greenfield CAST NONE SEEN Normal NONE SEEN [facility] Comment on above: Performed By: #### C VDTBH #### [facility] [address] [place] [address] Dr. Deepak Greenfield Clarity (U) CLEAR Normal CLEAR [facility] Comment on above: Performed By: #### C VDTBH #### [facility] [address] [place] [address] Dr. Deepak Greenfield Color (U) YELLOW Normal YELLOW [facility] Comment on above: Performed By: #### C VDTBH #### [facility] [address] [place] [address] Dr. Deepak Greenfield Crystals LM Nom (Urine sed) NONE SEEN Normal NONE SEEN [facility] Comment on above: Performed By: #### C VDTBH #### [facility] [address] [place] [address] Dr. Deepak Greenfield Epithelial cells LM Ql (Urine sed) RARE Normal NONE SEEN /RARE [facility] Comment on above: Performed By: #### C VDTBH #### [facility] [address] [place] [address] Dr. Deepak Greenfield Glucose Ql (U) Negative Normal NEGATIVE [facility] Comment on above: Performed By: #### C VDTBH #### [facility] [address] [place] [address] Dr. Deepak Greenfield Hemoglobin Ql (U) Negative Normal NEGATIVE [facility] Comment on above: Performed By: #### C VDTBH #### [facility] [address] [place] [address] Dr. Deepak Greenfield Ketones Ql (U) 15 mg/dl Abnormal NEGATIVE [facility] Comment on above: Performed By: #### C VDTBH #### [facility] [place] [facility] [address] [place] [address] Dr. Deepak Greenfield LEUKOCYTES Negative Normal NEGATIVE [facility] Comment on above: Performed By: #### C VDTBH #### [facility] [place] [facility] [address] [address] [address] Deepak Greenfield MUCOUS NONE SEEN Normal NONE SEEN [facility] [place] [facility] Comment on above: Performed By: #### C VDTBH #### [facility] [place] [facility] [address] [place] [address] Dr. Deepak Greenfield Nitrite Ql (U) Negative Normal NEGATIVE [facility] Comment on above: Performed By: #### C VDTBH #### [facility] [place] [facility] [address] [place] [address] Dr. Deepak Greenfield pH (U) 6.0 [pH] Normal 5-9 [facility] Comment on above: Performed By: #### C VDTBH #### [facility] [place] [facility] [address] [place] [address] Dr. Deepak Greenfield RBC 0-2 Normal 0-2 [facility] Comment on above: Performed By: #### C VDTBH #### [facility] [place] [facility] [address] [place] [address] Dr. Deepak Greenfield SPEC GRAVITY 1.020 Normal 1.005-<=1.025 [facility] Comment on above: Performed By: #### C VDTBH #### [facility] [place] [facility] [address] [place] [address] Dr. Deepak Greenfield UA PROTEIN Negative Normal NEGATIVE/ TRACE [facility] [place] [facility] Comment on above: Performed By: #### C VDTBH #### [facility] [place] [facility] [address] [place] [address] Dr. Deepak Greenfield Urobilinogen Qn (U) 0.2 {Ottoniel'U}/dL Normal 0.2 - 1. 0 [facility] Comment on above: Performed By: #### C VDTBH #### [facility] [place] [facility] [address] [place] [address] Dr. Deepak Greenfield WBC NONE SEEN Normal NONE SEEN [facility] [place] [facility] Comment on above: Performed By: #### C VDTBH #### [facility] [place] [facility] [address] [place] [address] Dr. Deepak Greenfield ALBUMINon 01-12-2022 Albumin [Mass/Vol] 3.4 g/dL Normal 3.4-5.0 [facility] Comment on above: Performed By: #### C VDTBH #### [facility] [place] [facility] [address] [place] [address] Dr. Deepak Greenfield ALKALINE PHOSPHAon ALP [Catalytic activity/Vol] 46 U/L Normal 46-116 [facility] [place] [facility] Comment on above: Performed By: #### C VDTBH #### [facility] [place] [facility] [address] [place] [address] Dr. Deepak Greenfield AMMONIAon 01-12-2022 Ammonia (P) [Moles/Vol] 93 umol/L Critically high 11-32 [facility] Comment on above: Performed By: #### I NFLUAB #### [facility] [place] [facility] [address] [place] [address] Dr. Deepak Greenfield BILIRUBIN CONJUGATED (DIRECT )on 01-12-2022 BILI, CONJUGATED 0.1 mg/dL Normal 0.0-0.2 [facility] Comment on above: Performed By: #### C VDTBH #### [facility] [place] [facility] [address] [place] [address] Dr. Deepak Greenfield BILIRUBIN TOTALon 01-12-2022 Bilirubin [Mass/Vol] 0.4 mg/dL Normal 0.2-1.0 [facility] Comment on above: Performed By: #### C VDTBH #### [facility] [place] [facility] [address] [place] [address] Dr. Deepak Greenfield CBC AUTO DIFFon 01-12-2022 BASO # 0.0 103/ul Normal 0.0-0.1 [facility] [place] [facility] Comment on above: Performed By: #### M G, CMP #### [facility] [place] [facility] [address] [place] [address] Dr. Deepak Greenfield Basophils/100 WBC (Bld) 0.3 % Normal 0.2-2.0 [facility] [place] [facility] Comment on above: Performed By: #### M G, CMP #### [facility] [place] [facility] [address] [place] [address] Dr. Deepak Greenfield EO # 0.1 103/ul Normal 0.0-0.7 [facility] [place] [facility] Comment on above: Performed By: #### M G, CMP #### [facility] [place] [facility] [address] [place] [address] Dr. Deepak Greenfield Eosinophils/100 WBC (Bld) 1.3 % Normal 0.9-7.0 [facility] Comment on above: Performed By: #### Karishma Bajwa, CMP #### [facility] [place] [facility] [address] [place] [address] Dr. Deepak Greenfield Erythrocyte distribution width (RBC) [Ratio] 14.2 % Normal 11.0-15.0 [facility] Comment on above: Performed By: #### M G, CMP #### [facility] [place] [facility] [address] [place] [address] Dr. Deepak Greenfield Hematocrit (Bld) [Volume fraction] 40.4 % Critically low 42.0-54.0 [facility] Comment on above: Performed By: #### M G, CMP #### [facility] [place] [facility] [address] [place] [address] Dr. Deepak Greenfield Hemoglobin (Bld) [Mass/Vol] 13.1 g/dL Critically low 14.0-18.0 [facility] [place] [facility] Comment on above: Performed By: #### M G, CMP #### [facility] [place] [facility] [address] [place] [address] Dr. Deepak Greenfield IG # 0.01 10e3/ul Normal 0.00-0.03 [facility] [place] [facility] Comment on above: Performed By: #### M G, CMP #### [facility] [place] [facility] [address] [address] [address] Deepak Greenfield IG % 0.1 % Normal 0.0-0.5 [facility] [place] [facility] Comment on above: Performed By: #### M G, CMP #### [facility] [place] [facility] [address] [place] [address] Dr. Deepak Greenfield LYMPH # 3.3 103/ul Normal 1.2-3.8 [facility] [place] [facility] Comment on above: Performed By: #### M G, CMP #### [facility] [place] [facility] [address] [place] [address] Dr. Deepak Greenfield Lymphocytes/100 WBC (Bld) 42.3 % Normal 20.5-60.0 [facility] [place] [facility] Comment on above: Performed By: #### M G, CMP #### [facility] [place] [facility] [address] [place] [address] Dr. Deepak Greenfield MANUAL DIFF REQ NO Normal [facility] Comment on above: Performed By: #### M G, CMP #### [facility] [place] [facility] [address] [place] [address] Dr. Deepak Greenfield MCH (RBC) [Entitic mass] 32.4 pg Normal 25.9-34.0 [facility] [place] [facility] Comment on above: Performed By: #### M G, CMP #### [facility] [place] [facility] [address] [place] [address] Dr. Deepak Greenfield MCHC (RBC) [Mass/Vol] 32.4 g/dL Normal 29.9-35.2 [facility] [place] [facility] Comment on above: Performed By: #### M G, CMP #### [facility] [place] [facility] [address] [place] [address] Dr. Deepak Greenfield MCV (RBC) [Entitic vol] 100.0 fL Critically high 80.0-94.0 [facility] [place] [facility] Comment on above: Performed By: #### M G, CMP #### [facility] [place] [facility] [address] [place] [address] Dr. Deepak Greenfield MONO # 0.6 103/ul Normal 0.3-0.8 [facility] [place] [facility] Comment on above: Performed By: #### M G, CMP #### [facility] [place] [facility] [address] [address] [address] Deepak Greenfield Monocytes/100 WBC (Bld) 7.6 % Normal 1.7-12.0 [facility] [place] [facility] Comment on above: Performed By: #### M G, CMP #### [facility] [place] [facility] [address] [place] [address] Dr. Deepak Greenfield NEUT # 3.8 103/ul Normal 1.4-6.5 [facility] [place] [facility] Comment on above: Performed By: #### M G, CMP #### [facility] [place] [facility] [address] [place] [address] Dr. Deepak Greenfield Neutrophils/100 WBC (Bld) 48.4 % Normal 43.0-75.0 [facility] [place] [facility] Comment on above: Performed By: #### M Lacy, CMP #### [facility] [place] [facility] [address] [place] [address] Dr. Deepak Greenfield Platelet mean volume (Bld) [Entitic vol] 9.6 fL Normal 9.5-13.5 [facility] Comment on above: Performed By: #### Karishma G, CMP #### [facility] [place] [facility] [address] [place] [address] Dr. Deepak Greenfield PLT 315 103/ul Normal 150-450 [facility] [place] [facility] Comment on above: Performed By: #### M G, CMP #### [facility] [place] [facility] [address] [place] [address] Dr. Deepak Greenfield RBC 4.04 106/ul Critically low 4.70-6.10 [facility] Comment on above: Performed By: #### M G, CMP #### [facility] [place] [facility] [address] [place] [address] Dr. Deepak Greenfield WBC 7.9 103/ul Normal 4.0-11.0 [facility] [place] [facility] Comment on above: Performed By: #### M G, CMP #### [facility] [place] [facility] [address] [place] [address] Dr. Deepak Greenfield DEPAKENE/VALPROICon 01-13-20 22 DEPAKENE 89.7 ug/ml Normal 50.0-100.0 [facility] [place] [facility] Comment on above: Performed By: #### I NFLUAB #### [facility] [place] [facility] [address] [address] [address] Deepak Greenfield PROF CHEM 8 (BAS METB)on Anion gap [Moles/Vol] 12.9 mmol/L Normal [facility] Comment on above: Performed By: #### I NFLUAB #### [facility] [place] [facility] [address] [address] [address] Deepak Greenfield Calcium [Mass/Vol] 8.8 mg/dL Normal 8.5-10.1 [facility] Comment on above: Performed By: #### I NFLUAB #### [facility] [place] [facility] [address] [address] [address] Deepak Greenfield Chloride [Moles/Vol] 103 mmol/L Normal 98-107 [facility] Comment on above: Performed By: #### I NFLUAB #### [facility] [place] [facility] [address] [place] [address] Dr. Deepak Greenfield CO2 [Moles/Vol] 28.1 mmol/L Normal 21.0-32.0 [facility] Comment on above: Performed By: #### I NFLUAB #### [facility] [place] [facility] [address] [place] [address] Dr. Deepak Greenfield Creatinine [Mass/Vol] 0.58 mg/dL Critically low 0.70-1.30 [facility] Comment on above: Performed By: #### I NFLUAB #### [facility] [place] [facility] [address] [place] [address] Dr. Deepak Greenfield EGFR-AF GREENLANDIC >60 Normal >=60 [facility] Comment on above: Performed By: #### I NFLUAB #### [facility] [place] [facility] [address] [place] [address] Dr. Deepak Greenfield EGFR-NON AF GREENLANDIC >60 Normal >=60 [facility] Comment on above: Performed By: #### I NFLUAB #### [facility] [place] [facility] [address] [place] [address] Dr. Deepak Greenfield Glucose [Mass/Vol] 117 mg/dL Critically high 74-106 [facility] Comment on above: Performed By: #### I NFLUAB #### [facility] [place] [facility] [address] [place] [address] Dr. Deepak Greenfield Potassium [Moles/Vol] 4.0 mmol/L Normal 3.5-5.1 [facility] Comment on above: Performed By: #### I NFLUAB #### [facility] [place] [facility] [address] [place] [address] Dr. Deepak Greenfield Sodium [Moles/Vol] 140 mmol/L Normal 136-145 [facility] Comment on above: Performed By: #### I NFLUAB #### [facility] [place] [facility] [address] [place] [address] Dr. Deepak Greenfield Urea nitrogen [Mass/Vol] 7.0 mg/dL Normal 7.0-18.0 [facility] Comment on above: Performed By: #### I NFLUAB #### [facility] [place] [facility] [address] [place] [address] Dr. Deepak Greenfield Urea nitrogen/Creatinine [Mass ratio] 12.1 mg/mg Normal [facility] Comment on above: Performed By: #### I NFLUAB #### [facility] [place] [facility] [address] [place] [address] Dr. Deepak Greenfield SGOTon 01-12-2022 AST [Catalytic activity/Vol] 31 U/L Normal 15-37 [facility] Comment on above: Performed By: #### C VDTBH #### [facility] [place] [facility] [address] [place] [address] Dr. Deepak Greenfield SGPTon 01-12-2022 ALT [Catalytic activity/Vol] 48 U/L Normal 16-63 [facility] Comment on above: Performed By: #### C VDTBH #### [facility] [place] [facility] [address] [place] [address] Dr. Deepak Greenfield T PROTEIN SERUMon 01-12-2022 Protein [Mass/Vol] 7.3 g/dL Normal 6.4-8.2 [facility] Comment on above: Performed By: #### B MP #### [facility] [place] [facility] [address] [place] [address] Dr. Deepak Greenfield XR CHEST 2 Von [...] by: ANICETO CROCKER Date: 2022-01-06 16:15 Normal [facility] XR DEXA BONE DENSITYon 11-20 XR DEXA [...] by: MARGARITO DAVIES Date: 2021-11-20 11:42 Normal [facility] US SCROTUMon 11-14-2021 US SCROTUM EXAMINATION: US [...] KRISTIAN BILLINGS Date: 2021-11-14 07:10 Normal [facility] [place] [facility] AMMONIAon 10-31-2021 Ammonia (P) [Moles/Vol] 88 umol/L Critically high 11- [facility] [place] [facility] Comment on above: Performed By: #### M G, CMP #### [facility] [place] [facility] [address] [place] [address] Dr. Deepak Greenfield AMMONIAon 10-30-2021 Ammonia (P) [Moles/Vol] 103 umol/L Critically high [facility] Comment on above: Result Comment: SPEC IMEN SLIGHTLY HEMOLYZED MAY AFFECT AMM RESULT Performed By: #### I NFLUAB #### [facility] [place] [facility] [address] [address] [address] Deepak Greenfield WOUND CULTUREon 10-23-2021 Bacteria identified Aer cx Nom (Unsp spec) Final report Normal [facility] Comment on above: Performed By: #### C XWND #### [facility] [place] [facility] [address] [place] [address] Dr. Deepak Greenfield Result 1 Comment Normal [facility] Comment on above: Result Comment: No g rowth in 36 - 48 hours. Performed By: #### C XWND #### [facility] [place] [facility] [address] [address] [address] Deepak Greenfield WOUND CULTUREon 10-02-2021 Bacteria identified Aer cx Nom (Unsp spec) Final report Normal [facility] [place] [facility] Comment on above: Performed By: #### A MM #### [facility] [place] [facility] [address] [place] [address] Dr. Deepak Greenfield Result 1 Mixed skin omid Normal [facility] Comment on above: Performed By: #### A MM #### [facility] [place] [facility] [address] [place] [address] Dr. Deepak Greenfield AMYLASEon 09-22-2021 Amylase [Catalytic activity/Vol] 24 U/L Critically low 25-115 [facility] Comment on above: Performed By: #### C BC #### [facility] [place] [facility] [address] [place] [address] Dr. Deepak Greenfield CBC AUTO DIFFon 09-22-2021 BASO # 0.0 103/ul Normal 0.0-0.1 [facility] Comment on above: Performed By: #### C VDTBH #### [facility] [place] [facility] [address] [place] [address] Dr. Deepak Greenfield Basophils/100 WBC (Bld) 0.5 % Normal 0.2-2.0 [facility] Comment on above: Performed By: #### C VDTBH #### [facility] [place] [facility] [address] [place] [address] Dr. Deepak Greenfield EO # 0.1 103/ul Normal 0.0-0.7 [facility] Comment on above: Performed By: #### C VDTBH #### [facility] [place] [facility] [address] [place] [address] Dr. Deepak Greenfield Eosinophils/100 WBC (Bld) 1.3 % Normal 0.9-7.0 [facility] Comment on above: Performed By: #### C VDTBH #### [facility] [place] [facility] [address] [place] [address] Dr. Deepak Greenfield Erythrocyte distribution width (RBC) [Ratio] 13.9 % Normal 11.0-15.0 [facility] Comment on above: Performed By: #### C VDTBH #### [facility] [place] [facility] [address] [place] [address] Dr. Deepak Greenfield Hematocrit (Bld) [Volume fraction] 40.0 % Critically low 42.0-54.0 [facility] Comment on above: Performed By: #### C VDTBH #### [facility] [place] [facility] [address] [place] [address] Dr. Deepak Greenfield Hemoglobin (Bld) [Mass/Vol] 13.0 g/dL Critically low 14.0-18.0 [facility] Comment on above: Performed By: #### C VDTBH #### [facility] [place] [facility] [address] [place] [address] Dr. Deepak Greenfield IG # 0.01 10e3/ul Normal 0.00-0.03 [facility] Comment on above: Performed By: #### C VDTBH #### [facility] [place] [facility] [address] [place] [address] Dr. Deepak Greenfield IG % 0.2 % Normal 0.0-0.5 [facility] Comment on above: Performed By: #### C VDTBH #### [facility] [place] [facility] [address] [place] [address] Dr. Deepak Greenfield LYMPH # 3.0 103/ul Normal 1.2-3.8 [facility] Comment on above: Performed By: #### C VDTBH #### [facility] [place] [facility] [address] [place] [address] Dr. Deepak Greenfield Lymphocytes/100 WBC (Bld) 47.9 % Normal 20.5-60.0 [facility] Comment on above: Performed By: #### C VDTBH #### [facility] [place] [facility] [address] [place] [address] Dr. Deepak Greenfield MANUAL DIFF REQ NO Normal [facility] Comment on above: Performed By: #### C VDTBH #### [facility] [place] [facility] [address] [place] [address] Dr. Deepak Greenfield MCH (RBC) [Entitic mass] 32.9 pg Normal 25.9-34.0 [facility] Comment on above: Performed By: #### C VDTBH #### [facility] [place] [facility] [address] [place] [address] Dr. Deepak Greenfield MCHC (RBC) [Mass/Vol] 32.5 g/dL Normal 29.9-35.2 [facility] Comment on above: Performed By: #### C VDTBH #### [facility] [place] [facility] [address] [place] [address] Dr. Deepak Greenfield MCV (RBC) [Entitic vol] 101.3 fL Critically high 80.0-94.0 [facility] [place] [facility] Comment on above: Performed By: #### C VDTBH #### [facility] [place] [facility] [address] [place] [address] Dr. Deepak Greenfield MONO # 0.7 103/ul Normal 0.3-0.8 [facility] Comment on above: Performed By: #### C VDTBH #### [facility] [place] [facility] [address] [place] [address] Dr. Deepak Greenfield Monocytes/100 WBC (Bld) 10.3 % Normal 1.7-12.0 [facility] [place] [facility] Comment on above: Performed By: #### C VDTBH #### [facility] [place] [facility] [address] [place] [address] Dr. Deepak Greenfield NEUT # 2.5 103/ul Normal 1.4-6.5 [facility] Comment on above: Performed By: #### C VDTB #### [facility] [place] [facility] [address] [place] [address] Dr. Deepak Greenfield Neutrophils/100 WBC (Bld) 39.8 % Critically low 43.0-75.0 [facility] Comment on above: Performed By: #### C VDTB #### [facility] [place] [facility] [address] [place] [address] Dr. Deepak Greenfield Platelet mean volume (Bld) [Entitic vol] 10.1 fL Normal 9.5-13.5 [facility] Comment on above: Performed By: #### C VDTBH #### [facility] [place] [facility] [address] [place] [address] Dr. Deepak Greenfield PLT 311 103/ul Normal 150-450 [facility] [place] [facility] Comment on above: Performed By: #### C VDTBH #### [facility] [place] [facility] [address] [place] [address] Dr. Deepak Greenfield RBC 3.95 106/ul Critically low 4.70-6.10 [facility] Comment on above: Performed By: #### C VDTBH #### [facility] [place] [facility] [address] [place] [address] Dr. Deepak Greenfield WBC 6.3 103/ul Normal 4.0-11.0 [facility] Comment on above: Performed By: #### C [facility] #### [facility] [place] [facility] [address] [place], [place] [address] ABD/PELV W CONon [...] JAMIE ALICIA Date: 2021-09-22 02:34 Normal [facility] [place] [facility] CT HEAD WO CONon 09-22-2021 CT [...] by: BRITTON FONTENOT Date: 2021-09-22 01:13 Normal [facility] LIPASEon 09-22-2021 Lipase [Catalytic activity/Vol] 28.0 U/L Critically low 73.0-393.0 [facility] Comment on above: Performed By: #### C BC #### [facility] [place] [facility] [address] [place] [address] Dr. Deepak Greenfield PROF 14(COMP METB)on 022 Albumin [Mass/Vol] 3.3 g/dL Critically low 3.4-5.0 [facility] Comment on above: Performed By: #### B MP #### [facility] [place] [facility] [address] [place] [address] Dr. Deepak Greenfield Albumin/Globulin [Mass ratio] 0.9 {ratio} Normal [facility] Comment on above: Performed By: #### B MP #### [facility] [place] [facility] [address] [place] [address] Dr. Deepak Greenfield ALP [Catalytic activity/Vol] 38 U/L Critically low 46-116 [facility] Comment on above: Performed By: #### B MP #### [facility] [place] [facility] [address] [place] [address] Dr. Deepak Greenfield ALT [Catalytic activity/Vol] 91 U/L Critically high 16-63 [facility] Comment on above: Performed By: #### B MP #### [facility] [place] [facility] [address] [address] [address] Deepak Greenfield Anion gap [Moles/Vol] 10.2 mmol/L Normal [facility] Comment on above: Performed By: #### B MP #### [facility] [place] [facility] [address] [address] [address] Deepak Greenfield AST [Catalytic activity/Vol] 50 U/L Critically high 15-37 [facility] Comment on above: Performed By: #### B MP #### [facility] [place] [facility] [address] [address] [address] Deepak Greenfield Bilirubin [Mass/Vol] 0.3 mg/dL Normal 0.2-1.0 [facility] Comment on above: Performed By: #### B MP #### [facility] [place] [facility] [address] [address] [address] Deepak Greenfield Calcium [Mass/Vol] 8.6 mg/dL Normal 8.5-10.1 [facility] Comment on above: Performed By: #### B MP #### [facility] [place] [facility] [address] [address] [address] Deepak Greenfield Chloride [Moles/Vol] 106 mmol/L Normal 98-107 [facility] Comment on above: Performed By: #### B MP #### [facility] [place] [facility] [address] [address] [address] Deepak Greenfield CO2 [Moles/Vol] 29.9 mmol/L Normal 21.0-32.0 [facility] Comment on above: Performed By: #### B MP #### [facility] [place] [facility] [address] [address] [address] Deepak Greenfield Creatinine [Mass/Vol] 0.65 mg/dL Critically low 0.70-1.30 [facility] Comment on above: Performed By: #### B MP #### [facility] [place] [facility] [address] [place] [address] Dr. Deepak Greenfield EGFR-AF GREENLANDIC >60 Normal >=60 [facility] Comment on above: Performed By: #### B MP #### [facility] [place] [facility] [address] [address] [address] Deepak Greenfield EGFR-NON AF GREENLANDIC >60 Normal >=60 [facility] Comment on above: Performed By: #### B MP #### [facility] [place] [facility] [address] [address] [address] Deepak Greenfield Globulin (S) [Mass/Vol] 3.7 g/dL Normal [facility] Comment on above: Performed By: #### B MP #### [facility] [place] [facility] [address] [address] [address] Deepak Greenfield Glucose [Mass/Vol] 105 mg/dL Normal 74-106 [facility] Comment on above: Performed By: #### B MP #### [facility] [place] [facility] [address] [address] [address] Deepak Greenfield Potassium [Moles/Vol] 4.1 mmol/L Normal 3.5-5.1 [facility] Comment on above: Performed By: #### B MP #### [facility] [place] [facility] [address] [address] [address] Deepak Greenfield Protein [Mass/Vol] 7.0 g/dL Normal 6.4-8.2 [facility] Comment on above: Performed By: #### B MP #### [facility] [place] [facility] [address] [address] [address] Deepak Greenfield Sodium [Moles/Vol] 142 mmol/L Normal 136-145 [facility] Comment on above: Performed By: #### B MP #### [facility] [place] [facility] [address] [address] [address] Deepak Greenfield Urea nitrogen [Mass/Vol] 13.0 mg/dL Normal 7.0-18.0 [facility] Comment on above: Performed By: #### B MP #### [facility] [place] [facility] [address] [address] [address] Deepak Greenfield Urea nitrogen/Creatinine [Mass ratio] 20.0 mg/mg Normal [facility] Comment on above: Performed By: #### B MP #### [facility] [place] [facility] [address] [address] [address] Deepak Greenfield Vital Signs Date Time Vital Sign Value Performing Clinician Facility 12-19-2024 10:54-0400 Body height 157.48 cm Fam Acevedo DO Work Phone: [facility] 12-19-2024 10:54-0400 Body mass index (BMI) [Ratio] 25 kg/m2 Fam Acevedo DO Work Phone: [facility] 12-19-2024 10:54-0400 Body weight 62.19 kg Fam Acevedo DO Work Phone: [facility] 06-12-2024 08:27-0500 Body temperature 98.4 [degF] Ap Wilkes-Lorenzai DDS Work Phone: [facility] 06-12-2024 08:27-0500 Diastolic blood pressure 84 mm[Hg] Ap Wilkes-Lorenzai DDS Work Phone: [facility] 06-12-2024 08:27-0500 Heart rate 84 /min Ap Richeyi DDS Work Phone: [facility] 06-12-2024 08:27-0500 Respiratory rate 16 /min Ap Wilkes-Lorenzai DDS Work Phone: [facility] 06-12-2024 08:27-0500 SaO2% (BldA) [Mass fraction] 96 % Ap Wilkes-Lorenzai DDS Work Phone: [facility] 06-12-2024 08:27-0500 Systolic blood pressure 158 mm[Hg] Ap Wilkes-Lorenzai DDS Work Phone: [facility] 06-12-2024 07:02-0500 Body weight 63.05 kg Ap Wilkes-Lorenzai DDS Work Phone: [facility] 06-05-2024 21:37-0500 Heart rate 122 /min Pat Anesthesia [facility] 06-02-2024 13:35-0500 Body temperature 98.91 [degF] [facility] 06-02-2024 13:35-0500 Body weight 63.05 kg Pat Anesthesia [facility] 06-02-2024 13:35-0500 Diastolic blood pressure 73 mm[Hg] [facility] 06-02-2024 13:35-0500 Heart rate 115 /min [facility] 06-02-2024 13:35-0500 Respiratory rate 16 /min Pat Anesthesia [facility] 06-02-2024 13:35-0500 Systolic blood pressure 154 mm[Hg] Pat Anesthesia [facility] 06-02-2024 13:25-0500 Body temperature 98.91 [degF] Boyd Harry MD Work Phone: [facility] 06-02-2024 13:25-0500 Body weight 63.05 kg Boyd Harry MD Work Phone: [facility] 06-02-2024 13:25-0500 Diastolic blood pressure 73 mm[Hg] Boyd Harry MD Work Phone: [facility] 06-02-2024 13:25-0500 Heart rate 115 /min Boyd Harry MD Work Phone: [facility] 06-02-2024 13:25-0500 Respiratory rate 16 /min Boyd Harry MD Work Phone: [facility] 06-02-2024 13:25-0500 Systolic blood pressure 154 mm[Hg] Boyd Harry MD Work Phone: [facility] 05-31-2024 13:05-0500 Diastolic blood pressure 64 mm[Hg] Rodriguez Rashel DO Work Phone: [facility] 05-31-2024 13:05-0500 Systolic blood pressure 108 mm[Hg] Rodriguez Rashel DO Work Phone: [facility] 03-07-2024 11:34-0500 Diastolic blood pressure 88 mm[Hg] Rodriguez Rashel DO Work Phone: [facility] 03-07-2024 11:34-0500 Heart rate 68 /min Rodriguez Rashel DO Work Phone: [facility] 03-07-2024 11:34-0500 SaO2% (BldA) [Mass fraction] 98 % Rodriguez Rashel DO Work Phone: [facility] 03-07-2024 11:34-0500 Systolic blood pressure 128 mm[Hg] Rodriguez Rashel DO Work Phone: [facility] 12-16-2022 10:18-0400 Blood Pressure Location Arline Lue [facility] 12-16-2022 10:18-0400 Body temperature 98.06 [degF] Arline Lue [facility] 12-16-2022 10:18-0400 Diastolic blood pressure 78 mm[Hg] Arline Lue [facility] 12-16-2022 10:18-0400 Heart rate 84 /min Arline Lue [facility] 12-16-2022 10:18-0400 Systolic blood pressure 128 mm[Hg] Arline Lue [facility] 12-23-2021 11:30-0400 Body height 157.48 cm Antionette Leonel [facility] [employer] Other 12-23-2021 11:30-0400 Body mass index (BMI) [Ratio] 25.79 kg/m2 Antionette Leonel Other [employer] [facility] Other 12-23-2021 11:30-0400 Body temperature 98.5 [degF] Antionette Leonel Other [employer] Other 12-23-2021 11:30-0400 Body weight 63.96 kg Antionette Leonel Other [employer] Other 12-23-2021 11:30-0400 Diastolic blood pressure 70 mm[Hg] Antionette Leonel Other [employer] [facility] Other 12-23-2021 11:30-0400 Respiratory rate 20 /min Antionette Leonel Other [employer] [facility] Other 12-23-2021 11:30-0400 SaO2% (BldA) [Mass fraction] 99 % Antionette Leonel Other [employer] [facility] Other 12-23-2021 11:30-0400 Systolic blood pressure 120 mm[Hg] Antionette Leonel Other [employer] Other 10-22-2021 10:29-0400 Blood Pressure Location Arline Lue [facility] 10-22-2021 10:29-0400 Diastolic blood pressure 92 mm[Hg] Arline Lue [facility] [place] 10-22-2021 10:29-0400 Heart rate 100 /min [facility] 10-22-2021 10:29-0400 Respiratory rate 16 /min [facility] 10-22-2021 10:29-0400 Systolic blood pressure 137 mm[Hg] [facility] En[facility]ters Encounter Date Encounter Type Care Provider Facility Start: 12-19-2024 End: 12-19-2024 ambulatory Fam Roger Acevedo DO Work Phone: [facility] Work Phone: Start: 12-19-2024 End: 12-19-2024 Patient encounter procedure Marissa Lisa Schwarz [facility] Work Phone: Start: 12-11-2024 End: 12-11-2024 Patient encounter procedure Filomena Israelmarisol DDS Work Phone: [facility] Start: 12-11-2024 ambulatory UNKNOWN PROVIDER Facili ty:[facility] Start: 07-11-2024 End: 07-11-2024 ambulatory [facility] Work Phone: Start: 07-11-2024 End: 07-11-2024 [facility] Work Phone: Start: 06-12-2024 ambulatory UNKNOWN PROVIDER Facili ty:[facility] Start: 06-12-2024 End: 06-12-2024 ambulatory AP SCOTT Facility:[facility] Start: 06-12-2024 End: 06-12-2024 Subsequent hospital visit by physician Ap Scott DDS Work Phone: [facility] Start: 06-12-2024 End: 06-30-2024 Patient encounter procedure Ap Scott DDS Work Phone: [facility] Start: 06-05-2024 End: 06-05-2024 Telephone encounter Blessing Roy RN [facility] Pre-Admission Testing Comment on above: PAT (Informed Consen t & Anesthesia consent obtained) Start: 06-02-2024 End: 06-02-2024 Subsequent hospital visit by physician Op Xray 1 [facility] Radiology Comment on above: Pre-op evaluation Start: 06-02-2024 End: 06-02-2024 ambulatory UNKNOWN PROVIDER Facility:[facility] Start: 06-02-2024 Encounter for other preprocedural examination UNKNOWN PROVIDER [facility] Start: 06-02-2024 End: 06-02-2024 Office outpatient new 45 minutes Pat Anesthesia [facility] Pre-Admission Testing Comment on above: Preop examination (P rimary Dx); Intellectual disability; Hypothyroidism, unspecified type; Seizure (HCC); Edema, unspecified type; Tachycardia, unspecified; Cardiomegaly; Abnormal electrocardiogram (ECG) (EKG); Abnormal electrocardiogram (ECG) (EKG); Abnormal electrocardiogram (ECG) (EKG) Pre-op evaluation (P rimary Dx); Mental disability; Hypothyroidism, unspecified type; Abnormal thyroid blood test Start: 06-02-2024 End: 06-02-2024 Preprocedural examination done Boyd Harry MD Work Phone: [facility] Work Phone: Start: 06-02-2024 End: 06-02-2024 ambulatory BOYD HARRY Facility:[facility] Start: 05-31-2024 End: 05-31-2024 Bamboo flowsheet Rodriguez [...] surgery center Jared Adair DDS Work Phone: [facility] Start: 03-07-2024 End: 03-07-2024 Bamboo flowsheet Rodriguez Kiser DO Work Phone: [facility] Start: 03-07-2024 End: 03-07-2024 Bamboo flowsheet Rodriguez Kiser DO Work Phone: [facility] Start: 03-07-2024 End: 03-07-2024 Office outpatient visit 25 minutes Rodriguez Kiser DO Work Phone: [facility] Comment on above: Generalized convulsi ve epilepsy (CMS/HCC) (Primary Dx); 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); Spastic hemiplegia affecting dominant side (CMS/HCC); Spastic hemiplegia, nondominant side (HCC) (CMS/HCC); Severe intellectual disabilities (CMS/HCC) Start: 03-07-2024 End: 03-07-2024 ambulatory RODRIGUEZ RASHEL Not Available Start: 01-11-2024 End: 01-11-2024 ambulatory [facility] Work Phone: Start: 01-11-2024 End: 01-11-2024 [facility] Work Phone: Start: 11-07-2023 End: 11-07-2023 Letter encounter Abundio Mares DDS Work Phone: [facility] Start: 08-25-2023 End: 08-25-2023 ambulatory RODRIGUEZ RASHEL Not Available Start: 07-06-2023 End: 07-06-2023 ambulatory [facility] Work Phone: Start: 07-06-2023 End: 07-06-2023 Patient encounter procedure [facility] Work Phone: Start: 01-05-2023 End: 01-05-2023 ambulatory Antionette Leonel Other [employer] [facility] Other Start: 01-05-2023 Office outpatient vi sit 25 minutes Antionette Leonel [facility] Start: 12-16-2022 End: 12-17-2022 ambulatory Arline Levine Facility: [place] Start: 12-16-2022 End: 12-16-2022 Patient encounter procedure [facility] Start: 08-04-2022 End: 08-04-[address] FAM ACEVEDO Facility:[facility] Start: 07-29-2022 End: 08-02-2022 Evaluation and management of inpatient DR FAM ACEVEDO Facility:[facility] Start: 07-26-2022 End: 07-27-[address] FAM ACEVEDO Facility:[facility] Start: 07-23-2022 End: 07-24-2022 ambulatory FAM ACEVEDO Facility:[facility] Start: 07-23-2022 End: 07-23-2022 Patient encounter procedure FAM ACEVEDO [facility] Start: 06-23-2022 End: 06-23-2022 ambulatory Antionette Leonel Other [employer] Other Start: 06-23-2022 Office outpatient vi sit 25 minutes Antionette Leonel [facility] Start: 06-03-2022 End: 06-04-[address] FAM ACEVEDO Facility:[facility] Start: 05-08-2022 Letter encounter Abundio Mares DDS Work Phone: [facility] Start: 04-22-2022 End: 04-23-[address] FAM ACEVEDO Facility:[facility] Start: 03-19-2022 End: 03-20-[address] FAM ACEVEDO Facility:[facility] Start: 03-10-2022 End: 03-11-[address] FAM ACEVEDO Facility:[facility] Start: 01-24-2022 End: 01-24-[address] DIAMOND Duenas Facility:[facility] Start: 01-18-2022 End: 01-18-2022 ambulatory ANJELICA DOLL . Facility:[facility] Start: 01-13-[address] RODRIGUEZ KISER Facili ty:[facility] Start: 01-12-2022 End: 01-13-[address] RODRIGUEZ KISER Facility:[facility] Start: 01-06-2022 End: 01-07-[address] FAM ACEVEDO Facility:[facility] Start: 12-23-2021 End: 12-23-2021 ambulatory [facility] Leonel [facility] [employer] Other Start: 12-23-2021 Office outpatient vi sit 25 minutes Antionette Leonel [facility] Start: 12-16-2021 End: 12-17-2021 Patient encounter procedure Mora Ulloaaime [facility] Work Phone: [facility] Start: 12-10-2021 End: 12-10-2021 Patient encounter procedure Arline Levine [facility] Start: 11-20-2021 End: 11-21-[address] FAM ACEVEDO Facility:[facility] Start: 11-13-2021 End: 11-14-2021 ambulatory ARLINE LEVINE . Facility:[facility] Start: 10-31-2021 End: 11-01-[address] FAM ACEVEDO Facility:[facility] Start: 10-22-2021 End: 10-22-2021 Patient encounter procedure Arline Levine [facility] Start: 10-21-2021 End: 10-21-[address] [...] 2) Shingles (RZV) Vaccine (1 of 2) [facility] Start: 08-12-2028 Lipid panel [facility] Start: 06-02-2025 Thyroid stimulating hormone measurement TSH [facility] Start: 01-17-2025 Influenza vaccination Influenza Vacc ine (#1) [facility] Start: 12-18-2024 COVID-19 Vaccine ( season) COVID-19 Vaccine ( season) [facility] Start: 12-18-2024 Influenza vaccination Influenza Vacc ine (#1) [facility] Start: 12-11-2024 End: 12-11-2024 Patient encounter procedure [facility] Start: 11-20-2024 End: 11-20-2024 Patient encounter procedure 11/20/2024 11:20 AM EDT Office Visit YENNIFER AN [address] [place] [phone] Marissa Gonzalez NP [address] [place] [address] YENN[facility]ER AN Start: 06-12-2024 Subsequent hospital visit by physician 06/12/2024 Hospital Encounter [facility] [address] [place] [id number] Ap Scott, KETAN [address] [place] [address] [facility] Start: 06-02-2024 End: 06-02-2024 Patient encounter procedure 06/02/2024 1:30 PM EST Office Visit [facility] [address] [place] [address] Boyd Harry MD [address] [place], [place] [id number] [facility] Start: 05-31-2024 End: 05-31-2024 Patient encounter procedure [facility] [address] [facility] Comment on above: Arrived Start: 05-30-2024 Welcome to Medicare Visit (G0402) Welcome to Medicare Visit (G0402) [facility] Start: 03-07-2024 End: 03-07-2024 Patient encounter procedure 03/07/2024 11:30 AM EST Office Visit [facility] [place] [address] [place] [id number] Rodriguez Kiser DO [address] [place], [place] [id number] Arrived [facility] [address] Comment on above: Arrived Start: 01-18-2024 Influenza vaccination Influ[facility] Vacc ine [facility] Start: 12-19-2023 COVID-19 Vaccine ( season) COVID-19 Vaccine ( season) [facility] Start: 12-19-2023 Influenza vaccination Influenza Vacc ine (#1) [facility] Start: 12-18-2022 COVID-19 Vaccine ( season) COVID-19 Vaccine ( season) [facility] Start: 01-17-2022 Influenza vaccination Influenza Vacc ine (#1) [facility] Start: 02-01-2015 Lipid panel [facility] Start: 05-20-2012 Annual wellness visit Annual W ellness Visit (G0438) [facility] Start: 02-01-2007 HPV Vaccine (optiona l start 27-45 years) HPV Vaccine (optional start 27-45 years) [facility] Start: 02-01-1999 Hepatitis A (HAV) Vaccine (optional start 19+ years) Hepatitis A (HAV) Vaccine (optional start 19+ years) [facility] Start: 02-01-1999 Hepatitis B vaccination Hepatitis B (HBV) Vaccine (1 of 3 - 19+ 3-dose series) [facility] Start: 02-01-1998 Hepatitis C screening Hepatitis C An tibody [facility] Start: 02-01-1998 Tetanus + diphtheria + acellular pertussis vaccine (product) Tdap Booster [facility] Start: 02-01-1995 HIV screening HIV Test [facility] Start: 1980 COVID-19 Vaccine (#1) COVID-19 Vacci ne (#1) [facility] Start: 1980 Medicare Annual Wellness (AWV) Medicare Annual Wellness (AWV) [facility] Start: 1980 Prostate specific antigen measurement Prostate Cancer Screening (shared decision making) [facility] DENTAL RESTORATIONS DENTAL ANI RATIONS Routine scheduled Caries [facility] Immunizations Immunization Date Immunization Notes Care Provider [facility] 03-04-2020 pneumococcal conjuga te vaccine, [address] Work Phone: [facility] 01-26-2018 influenza, injectabl e, quadrivalent, preservative free Mora Urmetz RD Work Phone: [facility] 01-26-2018 influenza virus vaccine, unspecified formulation Mora Urmetz RDH Work Phone: [facility] 02-10-2017 influenza virus vaccine, unspecified formulation Arline Lukaren [facility] 02-10-2017 influenza, injectabl e, quadrivalent, contains preservative Mora Urmetz RDH Work Phone: [facility] 02-07-2015 influenza virus vaccine, unspecified formulation Arline Lue [facility] 02-07-2015 influenza, injectabl e, quadrivalent, preservative free Mora Urmetz RD Work Phone: [facility] 10-23-2014 pneumococcal polysaccharide vaccine, 23 valent Mora Urmetz RDH Work Phone: [facility] 12-31-2010 influenza virus vaccine, unspecified formulation Arline Levine [facility] 12-31-2010 influenza, seasonal, injectable Mora Urmetz RD Work Phone: [facility] 03-06-2009 novel [id number], preservative-free, injectable Mroa Urmetz RDH Work Phone: [facility] 02-09-2008 influenza virus vaccine, whole virus Mora Urmetz RD Work Phone: [facility] 02-09-2008 influenza, whole Arline Lue [facility] NEGATED: Highlighted row has not occurred!12-10-2021 SARS-CoV-2 mRNA (tozinameran 5y-11y) vaccine Arline Lukaren [facility] Payers Date Payer Category Payer Dental --Stand Alone DENTAL-MEDI CAID [id number] 2017 Medicaid [id number]. [id number] 2011 Medicare [id number] 1.13.56.2.7. [id number] 2011 Medicare FFS [id number] 1.13.56.2.7. [id number] 1980 Unknown [id number] 2.840.1.370446.3.579.2.5 93 1980 Unknown [id number] .840.1.250689.3.579.2.5 93 1980 Unknown [id number] .840.1.314283.3.579.2.5 93 1980 Unknown [id number] .840.1.909551.3.579.2.5 93 1980 Unknown [id number] .840.1.857831.3.579.2.7 27 1980 Unknown [id number] .840.1.730098.3.579.2.7 27 1980 Unknown [id number] .840.1.519854.3.579.2.1 259 1980 Unknown [id number] .840.1.668398.3.579.2.1 259 1980 Unknown [id number] .840.1.804935.3.579.2.1 259 1980 Unknown [id number] ..840.1.117706.3.579.2.7 32 1980 Unknown [id number] .840.1.401564.3.579.2.7 32 1980 Unknown [id number] 2.16.840.1.837618.3.579.2.7 32 1980 Unknown [id number] 840.1.347346.3.579.2.7 32 1980 Unknown [id number] 2.16.840.1.482908.3.579.2.7 32 1980 Unknown [id number] 2.16.840.1.548821.3.579.2.7 32 1980 Unknown [id number] 2.16.840.1.976436.3.579.2.7 32 1959 Medicaid [id number] 2.16.840.1.601203.19 1959 Medicare [id number] 2.16.840.1.787156.19 1953 Unknown [id number] 2.16.840.1.444232.3.579.2.5 1953 Unknown [id number] 2.16.840.1.454877.3.579.2.5 1953 Unknown [id number] 2.16.840.1.539577.3.579.2.5 1953 Unknown [id number] 2.16.840.1.226692.3.579.2.5 1953 Unknown [id number] 2.16.840.1.955092.3.579.2.5 1953 Unknown [id number] 2.16.840.1.151689.3.579.2.5 1953 Unknown [id number] 2.16.840.1.047967.3.579.2.5 1953 Unknown [id number] 2.16.840.1.267542.3.579.2.5 1953 Unknown [id number] 2.16.840.1.277302.3.579.2.5 1953 Unknown [id number] 2.16.840.1.394183.3.579.2.5 1953 Unknown [id number] 2.16.840.1.552235.3.579.2.5 93 1953 Unknown [id number] 2.16.840.1.829042.3.579.2.5 93 1953 Unknown [id number] 2.16.840.1.451371.3.579.2.5 93 1953 Unknown [id number] 2.16.840.1.690567.3.579.2.5 93 Self-pay Self Pay [id number] Social History Date Type Detail Facility Tobacco smoking status No Smokin g Status Entered [facility] Start: 11-02-2022 End: 05-31-2024 Sex Assigned At Male [facility] Start: 03-28-2020 End: 11-14-2024 Tobacco smoking status [facility] Tobacco smoking consumption unknown [facility] Start: 1980 [facility] Tobacco smoking status No Smokin g Status Entered [facility] Start: 11-02-2022 End: 12-16-2022 Tobacco smoking status Never smoked tobacco (finding) [facility] Tobacco smoking status Never [facility] Start: 1980 Sex Assigned At Male F [facility] Start: 11-02-2022 End: 05-31-2024 Alcoholic beverage intake Ex-drinker (finding) [facility] Start: 11-02-2022 End: 05-31-2024 History of Social function [facility] Start: 02-21-2012 End: 07-11-2024 Sex Male (finding) [facility] Functional Status Date Assessment Result Facility 12-16-2022 Functional Status N/A [facility] 12-10-2021 Functional Status N/A [facility] 10-22-2021 Functional Status N/A [facility] [place] Clinical Notes 10-22-2021 to 12-11-2024 Filomena Alfaro DDS - 12/11/2024 9:51 AM EDTDischarge InstructionsAttachmentsAl- Ap Flores DDS - 06/12/2024 8:18 AM ESTOP Note - Al-Ap Flores DDS - 06/12/2024 7:07 AM ESTPatient Instructions Note Date & Type Note Facility 12-11-2024 History of Present illness Narrative ----- Wednesday, December 11, 2024 at 11:07:03 AM ----- ----- Provider: [id number] Resident Flaco -- Clinic: [place] ----- LIMITED EXAM Patient presents for Scheduled appointment with a follow up. Reviewed patient's medical history. Patient has a history of: . Autistic non verbal No contraindications, patient is ready for treatment. Clinical exam was completed. Could not be completed since the patient is uncooperative Clinical Exam Finding None Radiographs taken today were: NONE Discussed the medical necessity of the problem with the patient. Case is not urgent. Patient will schedule for definitive treatment. Guardian mother Katia Lopez. [phone]. [facility] [phone] [phone] ( [facility]t) Contact Information [phone] (Home Phone) Alternate Certified Travel Counselor KORY (Other) NOTE: Scheduled for OR ----- Signed on Wednesday, December 11, 2024 at 12:38:13 PM ----- ----- Provider: [id number] Heriberto Jacobs DMD -- Clinic: [place] ----- documented in this encounter [facility] 06-12-2024 Hospital Discharge instructions Adalgisa Maldonado RN - 06/12/2024 8:24 AM EST PERIOPERATIVE DISCHARGE/HOME-GOING INSTRUCTIONS ANESTHESIA - GENERAL (ADULT) If a problem arises, you may contact your physician by calling [phone] and asking for the resident bow maker production for Dental service. Special Care Needs: Activity: [...] very uncomfortable and can t urinate, call [phone] or come to the emergency room. A [...] to Care for Your Mouth and Teeth (Russian)documented in this encounter [facility] 06-12-2024 History of Present illness Narrative ----- Wednesday, June 12, 2024 at 8:41:56 AM ----- ----- Provider: [id number] - Ap Adams DDS -- Clinic: [facility] ----- [facility], pt is ready for tx. [place], only scaling was done. Operative Note [facility] OR 3 Parish Lopez 44 year old male Surgical Contact Serial Number: [id number] Preoperative Diagnosis: Pre-op Diagnosis * Caries [K02.9] Mental disability COPD Hyperthyroidism Seizures HLD GERD Postoperative Diagnosis: Mental Disability COPD Hyperthyroidism Seizures HLD GERD Procedures: Full mouth x-rays [09581] Comprehensive Exam [[id number]] Dental prophylaxis [93059] Surgeon: Ap Scott DDS Sand Mixer Machine Surgeon: Hansel Burgess DDS; Beatris Thompson DMD [...] ----- Provider: Julia Adams DDS -- Clinic: [facility] ----- documented in this encounter [facility] 06-12-2024 Surgery Surgical operation note Operative Note [facility] OR 3 Parish Lopez 44 year old male Surgical Contact Serial Number: [id number] Preoperative Diagnosis: Pre-op Diagnosis * Caries [K02.9] Mental disability COPD Hyperthyroidism Seizures HLD GERD Postoperative Diagnosis: Mental Disability COPD Hyperthyroidism Seizures HLD GERD Procedures: Full mouth x-rays [31203] Comprehensive Exam [[id number]] Dental prophylaxis [20163] Surgeon: Ap Scott DDS Sand Mixer Machine Surgeon: Hansel Bugress DDS; Beatris Thompson DMD Anesthesia: General- Nasal [...] procedure. Beatris Thompson DDS 06/12/2024 7:07 AM [facility] [employer] Work Phone: 06-12-2024 Miscellaneous Notes Operative Note PHE OR 3 Parish Lopez 44 year old male Surgical Contact Serial Number: [id number] Preoperative Diagnosis: Pre-op Diagnosis * Caries [K02.9] Mental disability COPD Hyperthyroidism Seizures HLD GERD Postoperative Diagnosis: Mental Disability COPD Hyperthyroidism Seizures HLD GERD Procedures: Full mouth x-rays [27214] Comprehensive Exam [84402] Dental prophylaxis [04849] Surgeon: Ap Scott DDS Sand Mixer Machine Surgeon: Hansel Burgess DDS; Beatris Thompson DMD [...] OR BLOOD COMPONENTS: The patient and/or legal software support representative has been explained the need for transfusion of blood and/or blood components. The risks, benefits and alternatives have been explained. Questions concerning the transfusion of blood or blood components have been asked and answered. The patient and/or legal software support representative have REFUSED TO CONSENT transfusion of blood or blood products. PER PATIENT'S MOTHER Brief Operative Note PHE OR 3 Parish Lopez 44 year old male Surgical Contact Serial Number: [id number] Preoperative Diagnosis: Pre-op Diagnosis * Caries [K02.9] Mental disability COPD Hyperthyroidism Seizures HLD GERD Postoperative Diagnosis: Mental disability COPD Hyperthyroidism Seizures HLD GERD Procedures: Full mouth x-rays [71355] Comprehensive Exam [07312] Dental prophylaxis [31275] Surgeon(s): Surgeon(s): Ap Scott DDS Staff: Food Safety Director Nurse: Felisha Moore Anesthesia: General Anesthesiologist: Blake Green MD Anesthesia Staff: [place]berly Feng CAA Specimen(s): * No specimens in log [...] 8:43 AM EST documented in this encounter [facility] 06-12-2024 Progress note Formatting of t his note might be different from the original. Blood Attestation: REFUSAL OF BLOOD OR BLOOD COMPONENTS: The patient and/or legal software support representative has been explained the need for transfusion of blood and/or blood components. The risks, benefits and alternatives have been explained. Questions concerning the transfusion of blood or blood components have been asked and answered. The patient and/or legal software support representative have REFUSED TO CONSENT transfusion of blood or blood products. PER PATIENT'S MOTHER [facility] Work Phone: 06-12-2024 Surgery Postoperative evaluation and management note Brief Operative Note PHE OR 3 Parish Lopez 44 year old male Surgical Contact Serial Number: [id number] Preoperative Diagnosis: Pre-op Diagnosis * Caries [K02.9] Mental disability COPD Hyperthyroidism Seizures HLD GERD Postoperative Diagnosis: Mental disability COPD Hyperthyroidism Seizures HLD GERD Procedures: Full mouth x-rays [53805] Comprehensive Exam [14352] Dental prophylaxis [34449] Surgeon(s): Surgeon(s): Ap Scott DDS Staff: Food Safety Director Nurse: Felisha Moore Anesthesia: General Anesthesiologist: Blake [...] Scott DDS at 06/12/2024 8:43 AM EST [facility] 06-12-2024 Consult note Formatting of th is [...] Scott DDS at 06/12/2024 8:43 AM EST [facility] 06-12-2024 Note Surgical Attestation : I [...] Beatris Thompson DDS 06/12/2024 6:59 AM [facility] 06-12-2024 Consult note Formatting of th [...] 8:43 AM EST documented in this encounter [facility] 06-05-2024 Telephone encounter Note Informed Consent for dental surgery & Anesthesia consent obtained and scanned into [facility]. Scheduled for surgery 06/12/2024. [facility] 06-05-2024 Miscellaneous Notes Informed Consent for dental surgery & Anesthesia consent obtained and scanned into [facility]. Scheduled for surgery 06/12/2024. documented in this encounter [facility] 06-02-2024 Note Addended by: BOYD HARRY on: 06/02/2024 05:54 PM Modules accepted: Orders [facility] 06-02-2024 Miscellaneous Notes Addended by: BOYD HARRY on: 06/02/2024 05:54 PM Modules accepted: Orders documented in this encounter [facility] 06-02-2024 Note EXAMINATION: XR CHES T [...] DIAGNOSIS: Pre-op evaluation ORDERING PROVIDER: BOYD HARRY TECHNAVERY NOTE: COMPARISON: None FINDINGS: Cardiomediastinal silhouette: Limited [...] and agree with the resident's interpretation. 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 Contact the Pre-Surgical Evaluation department at [phone] or your surgeon's office with any additional questions [facility] 06[facility]24 Instructions Сергей Alves MD - [...] procedure. Contact the Pre-Surgical Evaluation department at [phone] or your surgeon's office with any additional questions documented in this encounter [facility] 06-02-2024 Evaluation note Pre-Admission Testing Consultation Parish Lopez, [id number] 44 year old Male 06/02/2024 Consult placed to [facility] by Dr. Zamora due to significant [...] No STOP BANG: STOP-BANG Row Name 06/02/24 7682 History of sleep apnea? No Snoring No [...] 1 extraction; Surgeon: Ap Scott DDS; Location: [facility] [place]; Service: Dental Past Medical History and Review of Systems Pulmonary (+) COPD (-) sleep apnea Dental ROS (+) teeth problems missing Endo (+) hyperthyroidism Neuro/Psych (+) seizures Comment: intellectual disability Vagus nerve stimulator Cardiovascular (+) hyperlipidemia (-) hypertension, past AL, CAD, angina GI/Hepatic/Renal (+) GERD (-) renal [...] - referring and communicating with other health care rep (when not separately reported) - documenting clinical information in the electronic or other health record - independently interpreting results (not separately reported) and communicating results to the patient/family/caregiver - care coordination (not separately reported). Interviewer signature: Сергей Alves MD 1:35 PM 06/02/2024 Cosigned by Jonnie Aguilar MD at 06/02/2024 2:05 PM EST [facility] 06-02-2024 Miscellaneous Notes Pre-Admission Testing Consultation Parish Lopez, [id number] 44 year old Male 06/02/2024 Consult placed to [facility] by Dr. Zamora due to significant PMH of Seizures, mental disability, hypothyroid undergoing dental restorations 06/12 [facility] Triage Risk Score Total Score: 2 [...] 1 extraction; Surgeon: Ap Scott DDS; Location: [facility] [place]; Service: Dental Past Medical History and Review of Systems Pulmonary (+) COPD (-) sleep apnea Dental ROS (+) teeth problems missing Endo (+) hyperthyroidism Neuro/Psych (+) seizures Comment: intellectual disability Vagus nerve stimulator Cardiovascular (+) hyperlipidemia (-) hypertension, past AL, CAD, angina GI/Hepatic/Renal (+) GERD (-) renal [...] - referring and communicating with other health care rep (when not separately reported) - documenting clinical information in the electronic or other health record - independently interpreting results (not separately reported) and communicating results to the patient/family/caregiver - care coordination (not separately reported). Interviewer signature: Сергей Alves MD 1:35 PM 06/02/2024 Cosigned by Jonnie Aguilar MD at 06/02/2024 2:05 PM EST documented in this encounter [facility] 06-02-2024 Note Pre-Admission Serjio bajwa Consultation Parish Lopez, [id number] 44 year old Male 06/02/2024 Consult placed [...] No STOP BANG: STOP-BANG Row Name 06/02/24 7710 History of sleep apnea? No Snoring No [...] 1 extraction; Surgeon: Ap Scott DDS; Location: [facility] [place]; Service: Dental Past Medical History and Review of Systems Pulmonary (+) COPD (-) sleep apnea Dental ROS (+) teeth problems missing Endo (+) hyperthyroidism Neuro/Psych (+) seizures Comment: intellectual disability Vagus nerve stimulator Cardiovascular (+) hyperlipidemia (-) hypertension, past AL, CAD, angina GI/Hepatic/Renal (+) GERD (-) renal [...] appropriate examinati (more content not included)... 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 documented in this encounter [facility] 03-07-2024 History of Present illness [...] Life: 06/20 full Model: Oj Rocha #: [id number] Manufactured: 2019 Implant Date: 09/09/2021 Assessment/Plan Diagnoses [...] clinic: 6 months. documented in this encounter [facility] 01-05-2023 Evaluation note Encounter Date Diagnosis Assessment Notes Dec, COPD (chronic obstructive pulmonary disease) (ICD-10 - J44.9) [employer] Other 08-30-2023 Hospital Discharge instructions Patient Education [...] provider. Document Revised: 08/14/2021 Document Reviewed: 08/14/2021 [employer] Patient Education 2022 [employer]. Follow Up Care 12/10/2021 11:51:23 With:Abner BYRNE, JUNIOR Hawk, URO Address: When: Unknown Comments:PRN [facility] 03-07-2023 Evaluation note* Encounter Date Diagnosis Assessment Notes Treatment Notes Treatment Clinical Notes Jun, COPD (chronic obstructive pulmonary disease) (ICD-10 - J44.9) Continue with respiratory regemin, including VEST therapy, as you currently are doing. Call office with respiratory questions or concerns. [employer] Other 09-06-2022 Evaluation note* Encounter Date Diagnosis Assessment Notes Treatment Notes Treatment Clinical Notes Dec, COPD (chronic obstructive pulmonary disease) (ICD-10 - J44.9) Continue with VEST therapy twice a day. Ok to increase to TID if needed. [employer] Other 08-30-2022 Instructions* Patient Instructions* Mora Powell RDH - 12/16/2021 11:57 AM EDT Pt presented today for OR evaluation. Limited eval was completed. Pt's case is not urgent updated contact information and placed Pt on OR list. Step by step process for OR flyer was given to caregiver. Please wait for phone call from OR coordinator. documented in this [id number] History of Present illness Narrative* Mora Powell RDH - 12/16/2021 11:42 AM EDT ----- Thursday, December 16, 2021 at 12:03:50 PM ----- ----- Provider: [id number] Heriberto Powell Hygienist -- Clinic: [place] ----- RM, Pt is ready for tx. Pt presented for dental evaluation for future OR. Caregiver in the room. Patient is non-verbal. Severe intellectual disability, seizure disorder Caregiver stated patient is not pain and no complaining. Radiograph taken today: no possible due to patient behavior Case requested for OR. Guardian mother Katia Lopez. [phone]. [facility] [phone] EXT [id number] ( [facility] pt's appt) AVS printed and handed flyer for step by step instruction of OR process to Caregiver exam By: Elliott Ham [facility]. OR ----- Signed on Thursday, December 16, 2021 at 12:18:18 PM ----- ----- Provider: [id number] Heriberto Adams DDS -- Clinic: [place] ----- documented in this [id number] Hospital Discharge instructions Patient Education 12/10/2021 11:47:35 [...] (electrical nerve stimulation). For women, using a certified medical technician assistant to prevent urine leaks. This is a [...] right after experiencing incontinence. General instructions Take zocr-pco-ieswtzq and prescription medicines only as told by [...] 05/13/2005 Document Revised: 04/15/2018 Document Reviewed: 07/15/2017 [employer] Patient Education 2020 [employer]. Follow Up Care 10/22/2021 11:38:20 With:Abner BYRNE, JUNIOR Hawk, URO Address: When:1 year Comments:W/ renal US [facility] 07-06-2022 Hospital Discharge instructions Patient Education [...] (electrical nerve stimulation). For women, using a certified medical technician assistant to prevent urine leaks. This is a [...] right after experiencing incontinence. General instructions Take xgul-aao-lwhrxkr and prescription medicines only as told by [...] 05/13/2005 Document Revised: 04/15/2018 Document Reviewed: 07/15/2017 [employer] Patient Education 2020 [employer]. 10/22/2021 11:42:30 Renal Mass Renal Mass A [...] provider gives to you. In general: Take hrfo-lvh-ffofyew and prescription medicines only as told by [...] 10/31/2014 Document Revised: 05/12/2018 Document Reviewed: 05/12/2018 [employer] Patient Education 2020 [employer]. Follow Up Care 09/22/2021 14:10:46 With:Arline Levine MD, URL, URO Address: When:1 month [facility] evaluation + Plan note Future Appointments Appointment Date:11/19/2021 10:00:00 AM Scheduled Provider:Arline Levine MD Location:[facility] Appointment Type:URO Office Visit [facility] evaluation + Plan note Future Appointments Appointment Date:12/16/2022 10:15:00 AM Scheduled Provider:Arline Levine MD Location:[facility] Appointment Type:URO Office Visit [facility] evaluation note* Diagnosis Onset Date Resolution Status COPD (chronic obstructive pulmonary disease) acute Severe intellectual disability [facility] Work Phone: Evaluation note* Diagnosis Generalized [...] (chronic obstructive pulmonary disease) acute July 11, 2 025 9:09am Severe intellectual disability acute July 11, 2024 9:09am [facility] Work Phone: Evaluation note* Diagnosis Preop [...] dental caries [facility] Work Phone: History general Narrative - Reported* Type Description Date Medical History Mental retardation Medical History Seizure Disorder Medical History Tristen Syndrome Medical History ADD Medical History Hypothyroidism Medical History Spastic Quadraparesis Medical History Osteoporosis Medical History Tristen-Beuren syndrome Medical History Seizure disorder Medical History Seizure disorder Medical History COPD Surgical History VNS REPLACED 2021 [employer] Other Hospital course Narrative No data available for this section [facility] Hospital Discharge instructions No data available for this section [facility] No data available for this section [facility] reason for referral (narrative)No reason for referral information availableGuernsey [facility] Hospital Work Phone: Reason for visit Narrative* Diagnostic X-Ray (Routine) - Closed Specialty Diagnoses / Procedures Referred By Snow t Referred To Contact Radiology Diagnoses Pre-op evaluation Procedures XR CHEST PA+LAT 2 VIEWS Boyd Harry MD [facility] [place] [address] Phone: tel: fax: [facility] [address] [place] [address] [place] [address] Phone: tel: Referral ID Status Reason Start Date Expiration Date Visits Re quested Visits Authorized [id number] Closed 06/02/2024 06/02/2025 1 [facility] Auth/Cert (Routine) Specialty Diagnoses / Procedures Referred By Contac t Referred To Contact Ambulatory Surgery Diagnoses Caries Caries [K02.9] Procedures UNLISTED PROCEDURE, DENTOALVEOLAR STRUCTURES ANESTHESIA, INTRAORAL PROC, W/BX; NOS DENTAL RESTORATIONS Ap Scott, DDS [address] [place] [address] Phone: tel: fax: [facility] [address] [place] [id number] Phone: tel: Referral ID Status Reason Start Date Expiration Date Visits Re quested Visits Authorized [id number] 3 3 [facility] Summary Purpose Family History Relationship Condition Age at Onset Recorded Date/T bryan Not Specified Family history unknown Unknown Advance Directives Advance Directive Response Recorded Date/ Time Advance Directives No March 4:51pm Advance Directive Response Recorded Date/ Time Advance Directives Yes July 05 10:35am Advance Directive Response Recorded Date/ Time Advance Directives Yes November 14 2:46pm Chief Complaint and Reason for Visit Chief [...] 2024 9:09am Severe intellectual disability June 9:09am Chief Complaint Admit Date R/S 11/20/24, 6 MONTH F/U December 19, 2024 10:36am Additional Source Comments Care Team (unrecognized sect ion and content) Sales Assistant Entertainment [employer] Relationship Specialty Start Date End Date Abundio Mares DDS [address] [place], [place] [id number] Resident Dentistry 02/23/20 Sales Assistant Entertainment [employer] Relationship Specialty Start Date End Date Abundio Mares [address] [address] Resident Dentistry 02/23/20 Team Status: Active Member Role Status Dates Fam Acevedo DO Primary Care Provider Active Team Status: Inactive Member Role Status Dates Fam Acevedo DO Primary Care Provider Active Start: July 06, 2023 End: July 06, 2023 Antionette Castaneda APRN [facility] Attending Provider Active Start: July 06, 2023 End: July 06, 2023 Sales Assistant Entertainment [employer] Media Relationship Specialty Start Date End Date Abundio Mares [address] [address] Resident Dentistry 02/23/20 Team Status: Inactive Member Role Status Dates Fam Acevedo DO Primary Care Provider Active Start: January 11, 2024 End: January 11, 2024 Antionette Castaneda APRN [facility] Attending Provider Active Start: January 11, 2024 End: January 11, 2024 [facility] Active Start: 2023 End: January 11, 2024 Sales Assistant Entertainment And Media Relationship Specialty Start Date End Date Unallocated, Faye Fermin MD [address] [place] [id number] PCP - General 09/23/22 Fam Acevedo MD [facility] [address] [place] [address] Referring Physician Orthopaedic Surgery 09/23/22 Sales Assistant Entertainment And Media Relationship Specialty Start Date End Date Unallocated, Faye Fermin MD [address] [place] [id number] PCP - General 09/23/22 Fam Acevedo MD [facility] [address] [place] [address] Referring Physician Orthopaedic Surgery 09/23/22 Sales Assistant Entertainment [employer] Media Relationship Specialty Start Date End Date Abundio Mares DDS [address] [place] [id number] Resident Dentistry 02/23/20 Sales Assistant Entertainment [employer] Media Relationship Specialty Start Date End Date Abundio Mares DDS [address] [place] [address] Resident Dentistry 02/23/20 Sales Assistant Entertainment [employer] Media Relationship Specialty Start Date End Date Unallocated, Noms MD Zander [address] [place] [id number] PCP - General 09/23/22 Fam Acevedo MD [address] [place] [address] Referring Physician Orthopaedic Surgery 09/23/22 Team Status: Inactive Member Role Status Dates Fam Acevedo DO Primary Care Provider Active Start: July 11, 2024 End: July 11, 2024 Antionette Castaneda APRN [facility] Attending Provider Active Start: July 11, 2024 End: July 11, 2024 [employer] Relationship Specialty Start Date End Date Abundio Mares DDS [address] [place] [address] Resident Dentistry 02/23/20 Sales Assistant Entertainment And Media Relationship Specialty Start Date End Date Abundio Mares DDS [address] [place] [address] Resident Dentistry 02/23/20 Sales Assistant Entertainment [employer] Media Relationship Specialty Start Date End Date Abundio Mares DDS [address] [place] [address] Resident Dentistry 02/23/20 Sales Assistant Entertainment [employer] Media Relationship Specialty Start Date End Date Abundio Mares DDS [address] [place] [address] Resident Dentistry 02/23/20 Sales Assistant Entertainment [employer] Media Relationship Specialty Start Date End Date Abundio Mares DDS [address] [place] [address] Resident Dentistry 02/23/20 Sales Assistant Entertainment And Media Relationship Specialty Start Date End Date Abundio Mares DDS [address] [place] [address] Resident Dentistry 02/23/20 Team Status: Inactive Member Role Status Dates Fam Acevedo , DO Primary Care Provider Active Start: December 19, 2024 End: December 19, 2024 Marissa Gonzalez APRN Attending Provider Active Start: December 19, 2024 End: December 19, 2024 REASON FOR VISIT (unrecogniz ed section and content) Reason Comments Seizures Reason Comments Pre-surgical Evaluation Reason Onset Date Comments PAT 06/05/2024 Informed Consent & Anesthesia consent obtained (unrecognized sect ion and content) No Status Records FoundNo Status Records FoundNo Status Records FoundNo Status Records Found INFORMATION SOURCE (unrecogn ized section and content) DATE CREATED AUTHOR 08/05/[address] [facility] DATE CREATED AUTHOR AUTHOR'S ORGANIZ ATION 01/26/2023 [facility] DATE CREATED AUTHOR AUTHOR'S ORGANIZ ATION 06/02/2024 [facility] dical Specialists [facility] DATE CREATED AUTHOR AUTHOR'S ORGANIZ ATION 12/18/2024 [facility] [employer] [facility] Goals (unrecognized section and content) Goals [...] Intra-op 0815 (Given - Provid er: Beatris Thompson, DDS - Comment: applied to lips at [...] BE BASED ON THE PRIMARY CLINICAL RECORDS. [employer] [facility]. provides no warranty or guarantee of the accuracy or completeness of information in this document.
[2025-01-04 10:28] LABS: Ammonia 61 umol/L (11-32)
== END 2025-01-04 09:52 | disposition home or self-care (01) ==
LOC: LAB 09:51
PROVIDERS: PCP Family Medicine; Visit Provider Family Medicine
DX: K76.82 Hepatic encephalopathy (principal); Z79.891 Long term (current) use of opiate analgesic
CPT/HCPCS: 36415; 82140

== ENCOUNTER 2025-01-23 11:51 | Outpatient (OUT) | payer MEDICARE, MEDICAID, SELFPAY ==
--- OUTSIDE RECORDS SUMMARY | 2025-01-23 11:59 | XMS_ITS | CCD ---
Author Organization [facility] [place] [facility] Care Team Providers Care Tractor Trailer Driver Name Role Phone FAM ACEVEDO Primary Care [...] Mares DDS Unavailable Fam Acevedo MD Unavailable [phone] Unallocated , [place] Provider Primary Care Provi scotty RODRIGUEZ KISER Attending Unavailable RASHEL, RODRIGUEZ Attending Unavailable RASHEL, RODRIGUEZ Attending Unavailable PROVIDER, UNKNOWN Admitting Unavailable PROVIDER, UNKNOWN Attending Unavailable AL-MASHNI, AP Referring Unavailable PROVIDER, UNKNOWN Admitting Unavailable PROVIDER, UNKNOWN Attending Unavailable BOYD HARRY Attending Unavailable PROVIDER, UNKNOWN Admitting Unavailable PROVIDER, UNKNOWN Admitting Unavailable PROVIDER, UNKNOWN Attending Unavailable PROVIDER, UNKNOWN Admitting Unavailable AL-MASHNI, AP Attending Unavailable PROVIDER, UNKNOWN Admitting Unavailable BOYD HARRY Referring Unavailable PROVIDER, UNKNOWN Attending Unavailable AL-MASHNI, AP Admitting Unavailable AL-MASHNI, AP Attending Unavailable Fam Acevedo DO Primary Care Provider Marissa Gonzalez APRN Attending Provider Antionette Castaneda APRN Attending Provider [phone] Allergies Allergy Classification Reported Allergen(s) Allergy Type Date of Onset Reaction(s) Facility (8 sources) Amoxicillin / Clavulanate; Translations: [amoxicillin-clav ulanate] Drug Allergy Unknown [facility] (19 sources) Phenytoin; Translations: [phenytoin] Drug Allergy 3 Unknown [facility] (20 sources) Promethazine; Translations: [promethazine] Drug Allergy 7 Unknown [facility] (19 sources) Phenytoin; Translations: [PHENYTOIN SODIUM EXTENDED] Drug Allergy 7 Unknown [facility] (19 sources) Amoxicillin-Pot Clavulanate; Translations: [AMOXICILLIN-POT CLAVULANATE] Propensity to adverse reactions to drug 7 Unknown [facility] (8 sources) 4-Aminobenzoic Acid; Translations: [PERTUSSIS VACCINES] Drug Allergy 5 [facility] [place] Repository (1 source) Amoxicillin / Clavulanate Drug Allergy 4 [facility] [place] Repository (1 source) Levamisole Drug Allergy 4 [facility] [place] Repository (1 source) metroNIDAZOLE Drug Allergy [facility] [place] Repository (1 source) Phenytoin Drug Allergy 4 [facility] [place] Repository (1 source) remdesivir (investigational use) Drug allergy (disorder) [facility] Repository (11 sources) Amoxicillin Drug Allergy [address] [facility] (7 sources) Clavulanate Drug Allergy [address] [facility] Medications Current Medications Medication Drug Class(es) Dates Sig (Normalized) Sig (Original) albuterol 0.833 mg/ml / ipratropium bromide 0.167 mg/ml inhalation solution (14 sources) Anticholinergic, beta2-Adrenergic Agonist Start: 03-28-2020 take 1 mL by inhalation three times daily Ipratropium-Albuter ol 0.5 mg-3 mg(2.5 mg base)/3 mL solution for nebulization Active 3 ML INHALATION Three times daily March 28, 2020 1:00am Complies with drug therapy Start: 01-01-2015 take 3 mL by inhalat [...] PO every week March 28, 2020 1:00am Complies with drug therapy Start: 07-04-2015 alendronate Ta b 70 mg, [...] Start Date: 10/22/21 Status: Ordered Ascorbic Acid (12 sources) Vitamin C Start: 10-22-2021 Vitamin C [...] Daily at bedtime March 28, 2020 1:00am Complies with drug therapy azelastine hydrochloride 0.137 mg/actuat metered dose nasal spray (10 sources) Histamine-1 Receptor Antagonist Start: 06-28-2023 take 1 puff(s) nasal route twice daily Azelastine 137 mcg (0.1 %) aerosol,spray Active 1 PUFF INTRANASAL Twice daily June 28, 2023 12:00am Free[employer]Si puff in each nostril Nasally Twice a day; Note: Source Status: Taking; Provider: Leonel Adan ( ) Complies with drug therapy Start: 07-04-2015 azelastine alpa al 137 mcg/inh [...] Status: Ordered benzonatate 100 mg oral capsule (8 sources) Non-narcotic Antitussive Start: 03-28-2020 take 1 capsule by mouth every eight hours as needed for cough Benzonatate 100 mg Capsule Active 100 MG PO Q8H as needed for Cough March 28, 2020 1:00am Complies with drug therapy take 1 capsule by [facility] every eight hours Benzonatate 100 MG 1 capsule as needed Orally Three times a day Active budesonide 0.25 mg/ml inhalation suspension (20 sources) Corticosteroid Start: 06-28-2023 take 0.5 mg by inhalation twice daily Budesonide (Pulmicort) 0.5 mg/2 mL suspension for nebulization Active 0.5 MG INHALATION Twice daily June 28, 2023 12:00am Complies with drug therapy Start: 12-16-2022 take 0.5 mg by inhal ation twice daily budesonide 0.5 mg/2 mL Inh Susp 0.5 mg = 2 mL, NEB, BID, # 120 mL, Refills(s) 0 Start Date: 12/16/22 Status: Ordered take 2 mL by inhalat ion twice daily Pulmicort 0.5 MG/2ML 2 ml Inhalation Twice a day Active calcium carbonate 1250 mg / cholecalciferol 200 unt oral tablet (12 sources) Vitamin D Start: 03-28-2020 take 1 tablet by mouth twice daily Calcium Carbonate-Vitamin D3 (Oyster Shell Calcium-Vit D3) 500 mg(1,250mg) -200 unit Tablet Active 1 TAB PO Twice daily March 28, 2020 1:00am Complies with drug therapy take 1 tablet by rebecca th in [...] oral tablet (20 sources) Benzodiazepine Start: 07-04-19 16 End: 06-02-19 take 1 tablet by mouth twice daily Clobazam 10 mg tablet Active 10 MG PO Twice daily March 28, 2020 1:00am Complies with drug therapy clonazePAM 0.25 mg disintegrating oral tablet (14 sources) Benzodiazepine Start: 03-28-20 Clonazepam 0.25 mg Tablet,Disintegrating Active 0.25 MG TRANSLINGU Twice daily as needed for Cluster of 5 seizures March 28, 2020 1:00am Complies with drug therapy Start: 03-28-2020 Clonazepam Act jerrica 0.25 MG [...] 10:24am 10MG RECTAL GEL, PATIENT TAKES IT SC - wont let me save without route. Complies with drug therapy Start: 03-28-2020 End: 07-06-2023 apply 10 mg rectal route every two hours Diazepam Active 5 MG PO Q2H July 06, 2023 10:24am 10MG RECTAL GEL, PATIENT TAKES IT SC - wont let me save without route. [...] Start: 03-28-2020 [facility] Docusate Sodium 100 mg Capsule Active 200 MG PO Every morning March 28, 2020 1:00am Complies with drug therapy Start: 03-28-2020 take 200 mg by mouth once daily in the morning Docusate Sodium Active 200 MG PO Every morning March 28, 2020 1:00am take 1 capsule by [facility] every twenty-four hours Docusate Sodium 100 [...] Three times daily March 28, 2020 1:00am Complies with drug therapy felbamate (Felba ela) 400 MG tablet 1 [...] SPRAY INTRANASAL Daily March 28, 2020 1:00am Complies with drug therapy Start: 02-26-2020 End: 06-02-2024 fluticasone (FLONASE) 50 [...] MG PO Daily March 28, 2020 1:00am Complies with drug therapy glycopyrrolate 1 mg oral tablet (20 sources) Start: 10-22-2021 take 1 tablet by mouth three times daily glycopyrrolate 1 mg oral tablet mg tab(s), Oral, TID, Refills(s) 0 Start Date: 10/22/21 Status: Ordered Start: 03-28-2020 take 1 tablet by rebecca th twice daily Glycopyrrolate 1 mg tablet Active 1 MG PO Twice daily March 28, 2020 1:00am Complies with drug therapy guaiFENesin 400 mg oral tabl et (6 sources) Start: 12-16-2022 guaifenesin 40 0 mg oral tablet Refills(s) 0 Start Date: 12/16/22 Status: Ordered Start: 03-28-2020 take 1 tablet by rebecca th twice daily, then take 1 tablet by mouth every twelve hours Guaifenesin (Mucinex) 600 mg Tablet Extended Release 12hr Active 600 MG PO Twice daily March 28, 2020 1:00am Complies with drug therapy hydrocortisone 25 mg/ml rectal cream (1 source) [...] Status: Ordered ketoconazole 20 mg/ml topical cream (9 sources) Azole Antifungal Start: 03-28-2020 Ketoconazole 2 % Cream Active 1 APPLIC TOPICAL Twice daily as needed for Groin Rash March 28, 2020 1:00am Complies with drug therapy Start: 07-05-2015 Ketoconazole A ctive 1 APPLIC [...] Four times daily March 28, 2020 1:00am Complies with drug therapy Start: 02-19-2020 End: 06-02-2024 lactulose 10 g/15 [...] PO Twice daily March 28, 2020 1:00am Complies with drug therapy Start: 03-28-2020 take 1500 mg by mout [...] MCG PO Daily June 28, 2023 1:10pm Complies with drug therapy Start: 06-28-2023 take 150 ug by mouth [...] by mouth once daily in the morning Linaclotide (Linzess) 145 mcg capsule Active 145 MCG PO Every morning March 28, 2020 1:00am Complies with drug therapy Start: 07-05-2015 Linzess 145 mi crogram, Oral, Daily, PRN Constipation, Refills(s) 0 Start Date: 07/05/15 Status: Ordered Linzess 145 145m cg 1 PO Every AM Active loratadine 10 mg oral tablet (7 sources) Start: 12-16-2022 loratadine 10 mg Tab Start Date: 12/16/22 Status: Ordered 24 hr loratadine 10 mg / pseudoephedrine sulfate 240 mg extended release oral tablet (13 sources) alpha-Adrenergi c Agonist Start: 03-28-2020 End: 06-28-2023 take 1 tablet by mouth once daily as needed, then take 1 tablet by mouth every twenty-four hours as needed Loratadine-Pseudo ephedrine (Allergy Relief D-24hr) 10-240 mg tablet extended release 24 hr Active 1 TAB PO Daily as needed June 28, 2023 12:00am Complies with drug therapy magnesium oxide 400 mg oral tablet (20 sources) Start: 03-28-2020 take 1 tablet by mouth once daily Magnesium Oxide 400 mg magnesium Tablet Active 400 MG PO Daily March 28, 2020 1:00am Complies with drug therapy take 1 tablet by mouth once toby y Magnesium Oxide (MAG-OX 400 ORAL) Take 1 Tablet by mouth daily. Active melatonin 5 mg oral tablet (9 sources) Start: 03-28-2020 take 1 tablet by mouth once daily at bedtime Melatonin 5 mg Tablet Active 5 MG PO Daily at bedtime March 28, 2020 1:00am Complies with drug therapy metoprolol tartrate 50 mg oral tablet (8 sources) beta-Adrenergic Rachelle Start: 06-28-2023 take 1 tablet by mouth twice daily Metoprolol Tartrate 50 mg tablet Active 1 TAB PO Twice daily June 28, 2023 12:00am FreeTextSi tablet Orally Twice a day; Note: Source Status: Taking; Provider: Leonel Adan ( ) Complies with drug therapy take 1 tablet by rebecca th every twelve hours Metoprolol Tartrate 50 MG 1 tablet Orall y Twice a day Active Miconazole (3 sources) Azole Antifungal Start: 10-22-2021 Umesh Antifung al Topical, BID, Refill(s) 0 Start Date: 10/22/21 Status: Ordered montelukast 10 mg oral tablet (18 sources) Leukotriene Receptor Antagonist Start: 03-28-2020 take 1 tablet by mouth once daily at bedtime Montelukast 10 mg tablet Active 10 MG PO Daily at bedtime March 28, 2020 1:00am Complies with drug therapy Multivitamin preparation (5 sources) Start: 03-28-2020 take 1 tablet by mouth once daily Multivitamin Active 1 TAB PO Daily March 28, 2020 1:00am Multivitamin Ora lly Active Multivitamin Tablet (3 sources) Start: 03-28-2020 take 1 tablet by mouth once daily Multivitamin Tablet Active 1 TAB PO Daily March 28, 2020 1:00am Complies with drug therapy Start: 03-28-2020 take 1 tablet by rebecca th once daily Start: 03-28-2020 take 1 tablet by rebecca [...] Ordered Normal saline (7 sources) Start: 07-05-2015 Steuben Saline Alpa al Gel Nasal, TID, Refill(s) 0, Dry nasal passages Start Date: 07/05/15 Status: Ordered Steuben Saline Nasal Gel Nasally Active Nutritional Supplements (boost) (6 sources) Nutritional Supplements (boost) Take by mouth. 1 can tid Active omeprazole 40 mg delayed release oral capsule (20 sources) Proton Pump Inhibitor Start: 0 End: 5 take 1 capsule by mouth once daily Omeprazole 40 mg capsule,delayed release(DR/EC) Active 40 MG PO Daily March 28, 2020 1:00am Complies with drug therapy OXcarbazepine 600 mg oral tablet (20 sources) Anti-epileptic Agent Start: 4 Oxcarbazepine 600 mg tablet Active 300 MG PO Twice daily June 28, 2023 1:14pm Complies with drug therapy Start: 06-28-2023 take 300 mg by mouth [...] bid, Prophylaxis Start Date: 07/05/15 Status: Ordered [id number] oral powder for reconstitution (1 source) Start: [id number] oral powder for reconstitution Start Date: 12/16/22 [...] 0 Start Date: 10/22/21 Status: Ordered sennosides, fci 8.6 mg oral tablet (11 sources) Start: take 2 tablets by mouth twice daily as needed Sennosides (Senna) 8.6 mg Tablet Active 17.2 MG PO Twice daily as needed for No BM in 4 Days March 28, 2020 1:00am Complies with drug therapy take 1 tablet by rebecca th twice daily as needed for constipation senna (SENOKOT) 8.6 MG tablet Take 1 Tablet by mouth 2 times daily as needed for Constipation. Active sertraline 25 mg oral tablet (8 sources) Serotonin Reuptake Inhibitor Start: 06-28-2023 take 1 tablet by mouth once daily Sertraline 25 mg tablet Active 25 MG PO Daily June 28, 2023 12:00am Complies with drug therapy take 1 tablet by rebecca th every twenty-four hours Sertraline HCl 25 MG 1 tablet Orally Onc e a day Active Sodium Chloride-Aloe Vera (A yr Saline) gel (5 sources) Start: 06-28-2023 Sodium Chlorid e-Aloe Vera (Steuben Saline) gel Active 1 APPLIC TOPICAL Daily at bedtime as needed June 28, 2023 12:00am Complies with drug therapy Start: 06-28-2023 Start: 06-28-2023 Sodium Chlorid e-Aloe Vera (Steuben Saline) gel Active 1 APPLIC TOPICAL Daily at bedtime as needed June 28, 2023 12:00am Start: 06-28-2023 Sodium Chlorid e-Aloe Vera (Steuben Saline) gel Active 1 APPLIC TOPICAL Daily at bedtime June 28, 2023 12:00am tamsulosin hydrochloride 0.4 mg oral capsule (18 sources) alpha-Adrenergic Rachelle Start: 07-04-2015 take 1 capsule by mouth once daily Tamsulosin 0.4 mg capsule Active 0.4 MG PO Daily March 28, 2020 1:00am Complies with drug therapy Vitamin D3 5000 intl units oral capsule (1 source) Start: 12-16-2022 Vitamin D3 5000 intl units oral capsule Start Date: 12/16/22 Status: Ordered Completed/Discontinued Medications Medication Drug Class(es) Dates Sig (Normalized) Sig (Original) acetaminophen 325 mg oral tablet (15 sources) Start: 06-12-2024 End: 06-12-2024 650 mg, Oral, PACU ONCE PRN, Starting on Wed06/12/24 at 0652, Until Wed06/12/24 at 1045, Mild Pain (pain score 1,2,3), PACU Now Start: 12-16-2022 acetaminophen Refills(s) 0 Start Date: 12/16/22 Status: Ordered Start: 03-28-2020 Acetaminophen 650 mg Suppository Active 650 MG SC EVERY 4-6 HOURS as needed for Elevated Temp March 28, 2020 1:00am Complies with drug therapy Start: 03-28-2020 Acetaminophen Active 650 MG SC EVERY 4-6 HOURS March 28, 2020 1:00am [...] hrs Active acetylcysteine 100 mg/ml inhalation solution (5 sources) Antidote, Mucolytic, Antidote for Acetaminophen Overdose [...] needed for COPD June 28, 2023 1:17pm Complies with drug therapy Start: 03-28-2020 End: 06-28-2023 take 2.5 mg [...] 06/02/2024 Discontinued levoFLOXacin 750 mg oral tablet (5 sources) Quinolone Antimicrobial Start: 03-28-2020 End: 06-28-2023 [...] score 4,5,6), PACU Now polyethylene glycol 3350 51985 mg powder for oral solution (12 sources) Osmotic Laxative Start: 07-05-2015 End: 07-06-2023 [...] 2020 1:00am predniSONE 20 mg oral tablet (5 sources) Start: 03-28-2020 End: 07-06-2023 take 1 [...] Chloride-Aloe Vera (Saline Nasal (Aloe Vera)) Gel (5 sources) Start: 03-28-2020 End: 06-28-2023 Sodium Chloride-Aloe [...] take 1 tablet by mouth twice daily Divalproex 250 mg tablet,delayed release (DR/EC) Active 250 MG PO Twice daily June 28, 2023 1:07pm Complies with drug therapy Start: 02-23-2020 End: 06-02-2024 take 1 capsule [...] Episodic/Chronic Attention-deficit, conduct, and disruptive behavior disorders (9 sources) Attention deficit hyperactivity disorder, predominantly inattentive [...] Chronic Chronic obstructive pulmonary disease and bronchiectasis (19 sources) Chronic obstructive lung disease; Translations: [Chronic [...] [Seizure disorder] Onset: 04-22-2022 Chronic Esophageal disorders (6 sources) Gastro-esophageal reflux disease without esophagitis; Translations: [...] 06-30-2013 Chronic Other aftercare (5 sources) Other meterman (current) drug therapy; Translations: [OTH WEIGHER PACKING CURRENT DRUG THERAPY] Onset: 06-03-2022 Episodic Other [...] Onset: 01-27-2022 Episodic Other lower respiratory disease (5 sources) Wheezing; Translations: [Wheezing] 03-31-2023 Episodic Comment on above: Problem List clean-u p per request of Phys. EHR Cmte Other nervous system disorders (2 sources) Aphasia; Translations: [Aphasia] 12-20-2024 Chronic Other nutritional; endocrine; and metabolic disorders (5 sources) Disorder of urea cycle metabolism, unspecified; 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] Onset: 10-31-2021 Chronic Other upper respiratory disease (5 sources) Seasonal allergy; Translations: [Other seasonal allergic rhinitis] 07-06-2023 Chronic Other upper respiratory infections (8 sources) Chronic sinusitis; Translations: [Chronic sinusitis, unspecified] [...] specified sepsis] Onset: 07-29-2022 Episodic Thyroid disorders (13 sources) Hypothyroidism; Translations: [Hypothyroidism, unspecified] Onset: 08-05-2022 [...] Interpretation Reference Range Facility Progress Noteson 12-11-2024 Personal Protection Specialist Authentication Interface Message Text ----- Wednesday, December 11, 2024 at 11:07:03 AM ----- ----- Provider: Resident Brian -- Clinic: [place] ----- LIMITED EXAM Patient presents for Scheduled [...] for definitive treatment. Guardian mother Katia Lopez. [phone]. [facility] [phone] [id number] ( [place] will brayan pt's appt) Contact Information [phone] (Home Phone) Alternate Health And Safety Manager RUTH (Other) NOTE: Scheduled for OR ----- Signed on Wednesday, December 11, 2024 at 12:38:13 PM ----- ----- Provider: Tyler Jacobs DMD -- Clinic: [place] ----- Normal [facility] Anesthesia Postprocedure Lucia luationon 06-12-2024 Personal Protection Specialist Authentication Interface Message Text Anesthesia Postoperative [...] [facility] Anesthesia Preprocedure Eval uationon 06-12-2024 Personal Protection Specialist Authentication Interface Message Text ASA: 3 [...] were discussed with the patient and/or legal manufacturing sales representative. The risks, benefits and alternatives were reviewed. Questions regarding anesthesia were answered. Patient and/or legal manufacturing sales representative knows such anesthetics and procedures may be performed by Resident physicians, Certified Anesthesiologist Assistants, or Certified Nurse Anesthetists under the supervision of a physician. The patient /or the patient's legal manufacturing sales representative agree with the plan for anesthesia. Comment: Consent obtained from patient's mother over the phone. Also explained what to expect from anesthesia to patient's caregiver from long term [facility] Social History Socioeconomic History Marital status: Single Social History Narrative Resident at [employer] [employer] [facility] [employer] [facility]. Mom is guardian CBC 06/02/2024 3:03 PM [...] Vitamin D3 125 mcg, DAILY Normal [facility] Anesthesia Transfer Of [facility] [place] n 06-12-2024 Personal Protection Specialist Authentication Interface Message Text Patient taken [...] 1 extraction; Surgeon: Ap Scott DDS; Location: [facility]; Service: Dental Allergies: Promethazine, Amoxicillin-pot clavulanate, Pertussis [...] None Lines, Drains, Airways Peripheral IV Access: 06/12/24734 22 gauge Right Hand (Active) Site Assessment WNL;Dressing intact 06/12/24 07 Infusion Status Port #1 Infusing 06/12/24 0736 [...] Reason: Not Removed at Discharge: Removed 06/12/24 08 Location (cm) 06/12/24745 Measured from: Naris 06/12/24 07 Secured via: Taped 06/12/24745 Site Assessment WNL [...] report was received. ILIANA Clements Normal [facility] Blood Attestationon 06-12-19 Personal Protection Specialist Authentication Interface Message Text Blood Attestation: REFUSAL OF BLOOD OR BLOOD COMPONENTS: The patient and/or legal manufacturing sales representative has been explained the need for transfusion of blood and/or blood components. The risks, benefits and alternatives have been explained. Questions concerning the transfusion of blood or blood components have been asked and answered. The patient and/or legal manufacturing sales representative have REFUSED TO CONSENT transfusion of blood or blood products. PER PATIENT'S MOTHER Normal [facility] Brief Operative Noteon 06-12 Personal Protection Specialist Authentication Interface Message Text Brief Operative Note PHE OR 3 Parish Lopez 44 year old male Surgical Contact Serial Number: [id number] Preoperative Diagnosis: Pre-op Diagnosis * Caries [K02.9] Mental disability COPD Hyperthyroidism Seizures HLD GERD Postoperative Diagnosis: Mental disability COPD Hyperthyroidism Seizures HLD GERD Procedures: Full mouth x-rays [01867] Comprehensive Exam [31959] Dental prophylaxis [18538] Surgeon(s): Surgeon(s): Ap Scott DDS Staff: Commercial Subcontractor Nurse: Felisha Moore Anesthesia: General Anesthesiologist: Blake [...] Thompson DDS 06/12/2024 7:03 AM Normal [facility] OP Noteon 06-12-2024 Personal Protection Specialist Authentication Interface Message Text Operative Note PHE OR 3 Parish Lopez 44 year old male Surgical Contact Serial Number: [id number] Preoperative Diagnosis: Pre-op Diagnosis * Caries [K02.9] Mental disability COPD Hyperthyroidism Seizures HLD GERD Postoperative Diagnosis: Mental Disability COPD Hyperthyroidism Seizures HLD GERD Procedures: Full mouth x-rays [13052] Comprehensive Exam [45250] Dental prophylaxis [58287] Surgeon: Ap Scott DDS Scratch Finisher Surgeon: Hansel Burgess DDS; Beatris Thompson [...] Thompson DDS 06/12/2024 7:07 AM Normal [facility] Progress Noteson 06-12-2024 Personal Protection Specialist Authentication Interface Message Text ----- Wednesday, June 12, 2024 at 8:41:56 AM ----- ----- Provider: [id number] - Ap Adams DDS -- Clinic: [facility] ----- [facility], pt is ready for tx. [place], only scaling was done. __ Operative Note PHE OR 3 Parish Lopez 44 year old male Surgical Contact Serial Number: [id number] Preoperative Diagnosis: Pre-op Diagnosis * Caries [K02.9] Mental disability COPD Hyperthyroidism Seizures HLD GERD Postoperative Diagnosis: Mental Disability COPD Hyperthyroidism Seizures HLD GERD Procedures: Full mouth x-rays [60091] Comprehensive Exam [08650] Dental prophylaxis [47933] Surgeon: Ap Scott DDS Scratch Finisher Surgeon: Hansel Burgess DDS; Beatris Thompson [...] 2024 at 8:46:14 AM ----- ----- Provider: [id number] - Ap Adams DDS -- Clinic: [facility] ----- Normal [facility] EKG 12 LEAD - PERFORMon 05-20 Diagnosis Sinus tachycardia Possible Left atrial enlargement Nonspecific T wave abnormality Abnormal ECG Confirmed by JOSSELIN NIETO ([id number]) on 06/05/2024 9:00:17 PM [facility] P wave [facility] by EKG [address] [facility] P wave axis 21 degrees [facility] P-R Interval 156 ms [facility] Q-T interval 302 ms [facility] Q-T interval corrected 430 ms [facility] QRS axis 0 degrees [facility] QRS duration 78 ms [facility] T wave axis -4 degrees [facility] Telephone Encounteron 2024 Personal Protection Specialist Authentication Interface Message Text Informed Consent for dental surgery AND Anesthesia consent obtained and scanned into Expert TA. Scheduled for surgery 06/12/2024. Normal [facility] Addendum Noteon 06-02-2024 Personal Protection Specialist Authentication Interface Message Text Addended by: BOYD HARRY on: 06/02/2024 05:54 PM Modules accepted: Orders Normal [facility] BASIC METABOLIC PANELon 05-20 Anion gap [Moles/Vol] 18 mmol/L Normal 10-20 [facility] [place] Comment on above: Performed By: #### C H8 ####[facility] [id number] [place], [place], Calcium [Mass/Vol] 10.5 mg/dL High 8.6-10.3 [facility] Comment on above: Performed By: #### C H8 ####[facility] [id number] [place], [place], Chloride [Moles/Vol] 109 mmol/L High 98-107 [facility] [place], [facility] Comment on above: Performed By: #### C H8 ####[facility] PATHOLOGY [id number] [place], [place], CO2 [Moles/Vol] 22 mmol/L Normal 21-31 [facility], [place], [facility] Comment on above: Performed By: #### C H8 ####[facility] PATHOLOGY [id number] [place], [place], Creatinine [Mass/Vol] 0.61 mg/dL Low 0.70-1.30 [facility] [place], [facility] Comment on above: Performed By: #### C H8 ####[facility] PATHOLOGY [id number] [place], ESTIMATED GFR (CKD-EPI) 121 mL/min/1.73sqm Normal >=60 [facility] [place], [facility] Comment on above: Result Comment: 2020 CKD EPI Equation using Creatinine without Race Comment: Estimated glomerular filtration rate (eGFR) is calculated without a race coefficient. Values should be interpreted in the context of the patient's full clinical presentation. Reference: 1. Ata Hartley, Bia M, Beata FARIAS, et al.. A Unifying Approach for GFR Estimation: Recommendations of the NKF-ASN Task Force on Reassessing the Inclusion of Race in Diagnosing Kidney Disease. [place] Journal of Kidney Diseases 2021;79(2):268-88.e1. 2. N Engl J Med 2020 Vol. 385 Issue 19 Pages 3907-5961 Performed By: #### C H8 ####S PATHOLOGY [id number] [place], [place], Glucose [Mass/Vol] 126 mg/dL High 74-109 [facility] Comment on above: Performed By: #### C H8 ####S PATHOLOGY [id number] [place], Potassium [Moles/Vol] 4.8 mmol/L Normal 3.5-5.0 [facility] [place], [facility] Comment on above: Performed By: #### C H8 ####S PATHOLOGY [id number] [place], Sodium [Moles/Vol] 144 mmol/L Normal 136-145 [facility] Comment on above: Performed By: #### C H8 ####S PATHOLOGY [id number] [place], Urea nitrogen [Mass/Vol] 14 mg/dL Normal 7-25 The [facility] Comment on above: Performed By: #### C H8 ####[facility] PATHOLOGY [id number] [place], [place], Basic metabolic 2000 panelon 06-02-2024 Anion [...] Inclusion of Race in Diagnosing Kidney Disease. [place] Journal of Kidney Diseases 2021;79(2):268-88.e1. 2. N Engl J Med 2020 Vol. 385 Issue 19 Pages 6106-4376 Glucose [Mass/Vol] 126 mg/dL High 74 - [...] vol] 9.3 fL 7.5 - 11.2 fL [facility] Platelets (Bld) [#/Vol] 419 10*3/uL High 150 - 400 K/uL [facility] RBC (Bld) [#/Vol] 4.49 10*6/uL Low [facility] WBC (Bld) [#/Vol] 7 10*3/uL 4.5 - 11.5 K/uL [facility] COMPLETE BLOOD COUNTon 06-02 Erythrocyte distribution width (RBC) [Ratio] 14.5 % Normal 11.5-14.5 The [facility] Comment on above: Performed By: #### C BC #### S PATHOLOGY LABORATORY [address] [place], [place], Hematocrit (Bld) [Volume fraction] 42.5 % Normal 41.0-53.0 The [facility] Comment on above: Performed By: #### C BC #### [facility] PATHOLOGY LABORATORY [address] [place], [place], Hemoglobin (Bld) [Mass/Vol] 13.8 g/dL Low 13.9-16.3 The [facility] Comment on above: Performed By: #### C BC #### [facility] PATHOLOGY LABORATORY [address] [place], [place], MCH (RBC) [Entitic mass] 30.7 pg Normal 26.0-34.0 The [facility] Comment on above: Performed By: #### C BC #### [facility] PATHOLOGY LABORATORY [address] [place], [place], MCHC (RBC) [Mass/Vol] 32.4 g/dL Normal 32.0-35.9 The [facility] Comment on above: Performed By: #### C BC #### [facility] PATHOLOGY LABORATORY [address] [place], MCV (RBC) [Entitic vol] 95 fL Normal 80-100 [facility] Comment on above: Performed By: #### C BC #### [facility] PATHOLOGY LABORATORY [address] [place], [place], Platelet mean volume (Bld) [Entitic vol] 9.3 fL Normal 7.5-11.[address] [facility] Comment on above: Performed By: #### C BC #### S PATHOLOGY LABORATORY [address] [place], [place], Platelets (Bld) [#/Vol] 419 10*3/uL High 150-400 [facility] [place], [facility] Comment on above: Performed By: #### C BC #### [facility] LABOR[facility]ORY [address] [place], [place], RBC (Bld) [#/Vol] 4.49 10*6/uL Low 4.50-5.90 The [facility] Comment on above: Performed By: #### C BC #### [facility] PATHOLOGY LABORATORY [address] [place], [place], WBC (Bld) [#/Vol] 7.0 10*3/uL Normal 4.5-11.5 [facility] Comment on above: Performed By: #### C BC #### [facility] PATHOLOGY LABORATORY [address] [place], [place], Patient Instructionson 06-02 Personal Protection Specialist Authentication Interface Message Text RECOMMENDATIONS: Patient [...] before surgery Boyd Harry MD Normal [facility] Progress Noteson 06-02-2024 Personal Protection Specialist Authentication Interface Message Text Blood pressure [...] 1 extraction; Surgeon: Ap Scott DDS; Location: [facility] [place]; Service: Dental Pertinent Social History Reviewed Social [...] fever, chills, night sweats, and weight loss [facility]: h/o Seizur (more content not included)... Normal [facility] [place], [facility] THYROXINE (T4), FREEon 06-02 Free T4 [Mass/Vol] 0.7 ng/dL 0.61 - 1. 12 ng/dL [facility] Interpretation and review of laboratory results [facility] T4 F 0.70 ng/dL Normal 0.61-1.12 The [facility] Comment on above: Performed By: #### T SH HS, T4 F #### [facility] PATH[facility] [address] [place] [address], [id number] TSHon 06-02-2024 Interpretation and review of laboratory results Abnormal [facility] TSH Qn 0.229 m[IU]/L Low [facility] TSH 0.229 uIU/mL Low 0.450-5.330 The [facility] Comment on above: Performed By: #### T SH HS, T4 F #### [facility] PATH[facility] LABORATORY [address] [place], [id number] XR Chest PA and Lateralon Greta Heck [...] images and agree with the resident's interpretation. [facility] Radiology Study observation (narrative) [facility] XR Chest PA and LateralOrder ed By: Greta Heck on 06-02-2024 [facility] Work Phone: No Panel Informationon 05-31 [facility] Progress Noteson 04-25-2024 Personal Protection Specialist Authentication Interface Message Text Parent/guardian/patie nt was contacted for PSE AND OR scheduled -- confirmed information with mom, also informed mom importance of receiving PSE call -- if not received surgery will be canceled. 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 -- Clinic: [place] ----- Normal [facility] No Panel Informationon 03-13 As in note [facility] e Ambulatory Visit Summaryon 0 12-16-2022 Ambulatory Visit Summary PARISH LOPEZ :1980 Visit Date:12/16/2022 Ambulatory Visit Instructions Your Diagnosis Retractile testis Intermittent urinary incontinence Your Care Team Attending Physician - Arline Levine MD Primary Care Physician - FAM ACEVEDO DO [...] (oxcarbazepine 600 mg Tab) polyethylene glycol 3350 ([id number] oral powder for reconstitution) polyethylene glycol 3350 (polyethylene glycol 3350 17 gram packet) rifaximin (Xifaxan 550 mg oral tablet) senna (Senna 8.6 mg oral tablet) sodium chloride nasal (Steuben Saline Nasal Gel) tamsulosin Discharge Vitals Temperature [...] Application T (more content not included)... Normal [facility] Patient Educationon 12-17-19 Patient Education [...] provider. Document Revised: 08/14/2021 Document Reviewed: 08/14/2021 [employer] Patient Education ? 2022 [employer]. Normal [facility] Physician Orderon 12-16-2022 Physician Order [id number] .[id number]:127 Normal [facility] RAD - Ultrasound Reporton RAD - Ultrasound Report [id number] .00CD:127 Normal [facility] Urology Office/Clinic Noteon 12-16-2022 Urology [...] retractile testes. Pt currently resides in [facility]. CBC/CMP 08/01/22 1. Retractile testis (Q55.22: Retractile [...] Eye-Both, QID atorvastatin, 10 mg, Oral, Daily Steuben Saline Nasal Gel, Nasal, TID azelastine nasal 137 mcg/inh spray, 2 spray(s), Nasal, As (more content not included)... Normal [facility] Comment on above: Result Comment: [...] GUANAKITO MEADE Date: 2022-08-04 18:50 Normal The [facility] AMMONIAon 08-02-2022 Ammonia (P) [Moles/Vol] 87 umol/L Critically high [facility] Comment on above: Performed By: #### B MP #### [facility] Laboratory [address] [place] [address] Dr. Deepak Greenfield AMMONIAon 08-01-2022 Ammonia (P) [Moles/Vol] 42 umol/L Critically high [facility] Comment on above: Performed By: #### M G, CMP #### [facility] Laboratory [address] [address] [address] Deepak Greenfield CBC W MANUAL DIFFon 08-02-19 23 ATYPICAL LYMPH # 0.41 103/ul Normal The [facility] Comment on above: Performed By: #### M G, CMP #### [facility] Laboratory [address] [address] [address] Deepak Greenfield ATYPICAL LYMPH % 7 % Normal The [facility] Comment on above: Performed By: #### M G, CMP #### [facility] Laboratory [address] [place] [address] Dr. Deepak Greenfield BAND # 0.0 103/ul Normal 0.0-0.3 [facility] Comment on above: Performed By: #### M G, CMP #### [facility] Laboratory [address] [place] [address] Dr. Deepak Greenfield BAND % 0 % Normal 0-5 The [facility] Comment on above: Performed By: #### M G, CMP #### [facility] Laboratory [address] [place] [address] Dr. Deepak Greenfield BASOM # 0.00 103/ul Normal 0.00-0.10 [facility] Comment on above: Performed By: #### M G, CMP #### [facility] Laboratory [address] [place] [address] Dr. Deepak Greenfield BASOM % 0.0 % Critically low 0.2-2.0 [facility] Comment on above: Performed By: #### M G, CMP #### [facility] Laboratory [address] [place] [address] Dr. Deepak Greenfield BLAST # Normal [facility] Comment on above: Performed By: #### M G, CMP #### [facility] Laboratory [address] [place] [address] Dr. Deepak Greenfield BLAST % Normal [facility] Comment on above: Performed By: #### M G, CMP #### [facility] Laboratory [address] [place] [address] Dr. Deepak Greenfield CORRECTED WBC Normal 4.0-11.0 The [facility] Comment on above: Performed By: #### M G, CMP #### [facility] Laboratory [address] [place] [address] Dr. Deepak Greenfield EOS # 0.06 103/ul Normal 0.00-0.70 [facility] Comment on above: Performed By: #### M G, CMP #### [facility] Laboratory [address] [place] [address] Dr. Deepak Greenfield EOS% 1.0 % Normal 0.9-7.0 [facility] Comment on above: Performed By: #### M G, CMP #### [facility] Laboratory [address] [place] [address] Dr. Deepak Greenfield HCT 37.6 % Critically low 42.0-54.0 The [facility] Comment on above: Performed By: #### M G, CMP #### [facility] Laboratory [address] [address] [address] Deepak Greenfield HGB 12.3 g/dl Critically low 14.0-18.0 [facility] Comment on above: Performed By: #### M G, CMP #### [facility] Laboratory [address] [address] [address] Deepak Greenfield LYMPHM # 1.91 103/ul Normal 1.20-3.80 [facility] Comment on above: Performed By: #### M G, CMP #### [facility] Laboratory [address] [address] [address] Deepak Greenfield LYMPHM% 33.0 % Normal 20.5-60.0 [facility] Comment on above: Performed By: #### M G, CMP #### [facility] Laboratory [address] [address] [address] Deepak Greenfield MCH 31.7 pg Normal 25.9-34.0 [facility] Comment on above: Performed By: #### M G, CMP #### [facility] Laboratory [address] [address] [address] Deepak Greenfield MCHC 32.7 g/dl Normal 29.9-35.2 [facility] Comment on above: Performed By: #### M G, CMP #### [facility] Laboratory [address] [address] [address] Deepak Greenfield MCV 96.9 fL Critically high 80.0-94.0 [facility] Comment on above: Performed By: #### M G, CMP #### [facility] Laboratory [address] [address] [address] Deepak Greenfield METAMYELOCYTE # Normal The [facility] Comment on above: Performed By: #### M G, CMP #### [facility] Laboratory [address] [address] [address] Deepak Greenfield METAMYELOCYTE % Normal [facility] Comment on above: Performed By: #### M G, CMP #### [facility] Laboratory [address] [address] [address] Deepak Greenfield MONOM# 0.29 103/ul Critically low 0.30-0.80 [facility] Comment on above: Performed By: #### M G, CMP #### [facility] Laboratory [address] [place] [address] Dr. Deepak Greenfield MONOM% 5.0 % Normal 1.7-12.0 [facility] Comment on above: Performed By: #### M G, CMP #### [facility] Laboratory [address] [place] [address] Dr. Deepak Greenfield MPV 11.0 fL Normal 9.5-13.5 [facility] Comment on above: Performed By: #### M G, CMP #### [facility] Laboratory [address] [place] [address] Dr. Deepak Greenfield MYELOCYTE # Normal [facility] Comment on above: Performed By: #### M G, CMP #### [facility] Laboratory [address] [place] [address] Dr. Deepak Greenfield MYELOCYTE % Normal [facility] Comment on above: Performed By: #### M G, CMP #### [facility] Laboratory [address] [place] [address] Dr. Deepak Greenfield NRBC Normal [facility] Comment on above: Performed By: #### M G, CMP #### [facility] Laboratory [address] [place] [address] Dr. Deepak Greenfield PLT 208 103/ul Normal 150-450 The [facility] Comment on above: Performed By: #### M G, CMP #### [facility] Laboratory [address] [place] [address] Dr. Deepak Greenfield RBC 3.88 106/ul Critically low 4.70-6.10 The [facility] Comment on above: Performed By: #### M G, CMP #### [facility] Laboratory [address] [place] [address] Dr. Deepak Greenfield RDW 12.9 % Normal 11.0-15.0 [facility] Comment on above: Performed By: #### M G, CMP #### [facility] Laboratory [address] [place] [address] Dr. Deepak Greenfield SEG # 3.13 103/ul Normal 1.40-6.50 [facility] Comment on above: Performed By: #### M G, CMP #### [facility] Laboratory [address] [place] [address] Dr. Deepak Greenfield SEG % 54.0 % Normal 43.0-75.0 [facility] Comment on above: Performed By: #### M G, CMP #### [facility] Laboratory [address] [place] [address] Dr. Deepak Greenfield STOMATOCYTES 3+ Normal [facility] Comment on above: Performed By: #### M G, CMP #### [facility] Laboratory [address] [place] [address] Dr. Deepak Greenfield WBC 5.8 103/ul Normal 4.0-11.0 [facility] Comment on above: Performed By: #### M G, CMP #### [facility] Laboratory [address] [place] [address] Dr. Deepak Greenfield PROF CHEM 8 (BAS METB)on Anion gap [Moles/Vol] 16.1 mmol/L Normal [facility] Comment on above: Performed By: #### B MP #### [facility] Laboratory [address] [place] [address] Dr. Deepak Greenfield Calcium [Mass/Vol] 9.3 mg/dL Normal 8.5-10.1 [facility] Comment on above: Performed By: #### B MP #### [facility] Laboratory [address] [place] [address] Dr. Deepak Greenfield Chloride [Moles/Vol] 105 mmol/L Normal 98-107 The [facility] Comment on above: Performed By: #### B MP #### [facility] Laboratory [address] [place] [address] Dr. Deepak Greenfield CO2 [Moles/Vol] 27.6 mmol/L Normal 21.0-32.0 The [facility] Comment on above: Performed By: #### B MP #### [facility] Laboratory [address] [place] [address] Dr. Deepak Greenfield Creatinine [Mass/Vol] 0.96 mg/dL Normal 0.70-1.30 [facility] Comment on above: Performed By: #### B MP #### [facility] Laboratory [address] [place] [address] Dr. Deepak Greenfield EGFR-AF ITALIAN >60 Normal >=60 [facility] Comment on above: Performed By: #### B MP #### [facility] Laboratory [address] [place] [address] Dr. Deepak Greenfield EGFR-NON AF ITALIAN >60 Normal >=60 [facility] Comment on above: Performed By: #### B MP #### [facility] Laboratory [address] [address] [address] Deepak Greenfield Glucose [Mass/Vol] 160 mg/dL Critically high 74-106 T [facility] Comment on above: Performed By: #### B MP #### [facility] Laboratory [address] [place] [address] Dr. Deepak Greenfield Potassium [Moles/Vol] 3.7 mmol/L Normal 3.5-5.1 [facility] Comment on above: Performed By: #### B MP #### [facility] Laboratory [address] [place] [address] Dr. Deepak Greenfield Sodium [Moles/Vol] 145 mmol/L Normal 136-145 [facility] Comment on above: Performed By: #### B MP #### [facility] Laboratory [address] [place] [address] Dr. Deepak Greenfield Urea nitrogen [Mass/Vol] 5.0 mg/dL Critically low 7.0-18.0 [facility] Comment on above: Performed By: #### B MP #### [facility] Laboratory [address] [place] [address] Dr. Deepak Greenfield Urea nitrogen/Creatinine [Mass ratio] 5.2 mg/mg Normal [facility] Comment on above: Performed By: #### B MP #### [facility] Laboratory [address] [place] [address] Dr. Deepak Greenfield AMMONIAon 07-31-2022 Ammonia (P) [Moles/Vol] 94 umol/L Critically high 11-32 [facility] Comment on above: Performed By: #### M G, CMP #### [facility] Laboratory [address] [place] [address] Dr. Deepak Greenfield CBC AUTO DIFFon 07-31-2022 BASO # 0.0 103/ul Normal 0.0-0.1 [facility] Comment on above: Performed By: #### B MP #### [facility] Laboratory [address] [place] [address] Dr. Deepak Greenfield Basophils/100 WBC (Bld) 0.1 % Critically low 0.2-2.0 [facility] Comment on above: Performed By: #### B MP #### [facility] Laboratory [address] [place] [address] Dr. Deepak Greenfield EO # 0.0 103/ul Normal 0.0-0.7 [facility] Comment on above: Performed By: #### B MP #### [facility] Laboratory [address] [place] [address] Dr. Deepak Greenfield Eosinophils/100 WBC (Bld) 0.0 % Critically low 0.9-7.0 [facility] Comment on above: Performed By: #### B MP #### [facility] Laboratory [address] [place] [address] Dr. Deepak Greenfield Erythrocyte distribution width (RBC) [Ratio] 13.1 % Normal 11.0-15.0 [facility] Comment on above: Performed By: #### B MP #### [facility] Laboratory [address] [place] [address] Dr. Deepak Greenfield Hematocrit (Bld) [Volume fraction] 32.4 % Critically low 42.0-54.0 [facility] Comment on above: Performed By: #### B MP #### [facility] Laboratory [address] [place] [address] Dr. Deepak Greenfield Hemoglobin (Bld) [Mass/Vol] 10.9 g/dL Critically low 14.0-18.0 [facility] Comment on above: Performed By: #### B MP #### [facility] Laboratory [address] [place] [address] Dr. Deepak Greenfield IG # 0.02 10e3/ul Normal 0.00-0.03 [facility] Comment on above: Performed By: #### B MP #### [facility] Laboratory [address] [place] [address] Dr. Deepak Greenfield IG % 0.3 % Normal 0.0-0.5 [facility] Comment on above: Performed By: #### B MP #### [facility] Laboratory [address] [place] [address] Dr. Deepak Greenfield LYMPH # 2.7 103/ul Normal 1.2-3.8 [facility] Comment on above: Performed By: #### B MP #### [facility] Laboratory [address] [place] [address] Dr. Deepak Greenfield Lymphocytes/100 WBC (Bld) 38.9 % Normal 20.5-60.0 [facility] Comment on above: Performed By: #### B MP #### [facility] Laboratory [address] [place] [address] Dr. Deepak Greenfield MANUAL DIFF REQ NO Normal [facility] Comment on above: Performed By: #### B MP #### [facility] Laboratory [address] [place] [address] Dr. Deepak Greenfield MCH (RBC) [Entitic mass] 32.3 pg Normal 25.9-34.0 [facility] Comment on above: Performed By: #### B MP #### [facility] [facility] [address] [place] [address] Dr. Deepak Greenfield MCHC (RBC) [Mass/Vol] 33.6 g/dL Normal 29.9-35.2 [facility] Comment on above: Performed By: #### B MP #### [facility] [address] [place] [address] Dr. Deepak Greenfield MCV (RBC) [Entitic vol] 96.1 fL Critically high 80.0-94.0 [facility] Comment on above: Performed By: #### B MP #### [facility] [address] [place] [address] Dr. Deepak Greenfield MONO # 0.3 103/ul Normal 0.3-0.8 [facility] Comment on above: Performed By: #### B MP #### [facility] [address] [place] [address] Dr. Deepak Greenfield Monocytes/100 WBC (Bld) 4.9 % Normal 1.7-12.0 [facility] Comment on above: Performed By: #### B MP #### [facility] [address] [place] [address] Dr. Deepak Greenfield NEUT # 3.9 103/ul Normal 1.4-6.5 [facility] Comment on above: Performed By: #### B MP #### [facility] [address] [place] [address] Dr. Deepak Greenfield Neutrophils/100 WBC (Bld) 55.8 % Normal 43.0-75.0 [facility] Comment on above: Performed By: #### B MP #### [facility] [address] [place] [address] Dr. Deepak Greenfield Platelet mean volume (Bld) [Entitic vol] 9.7 fL Normal 9.5-13.5 [facility] Comment on above: Performed By: #### B MP #### [facility] [address] [place] [address] Dr. Deepak Greenfield PLT 296 103/ul Normal 150-450 [facility] Comment on above: Performed By: #### B MP #### [facility] [address] [place] [address] Dr. Deepak Greenfield RBC 3.37 106/ul Critically low 4.70-6.10 [facility] Comment on above: Performed By: #### B MP #### [facility] [address] [place] [address] Dr. Deepak Greenfield WBC 7.0 103/ul Normal 4.0-11.0 [facility] Comment on above: Performed By: #### B MP #### [facility] [address] [place] [address] Dr. Deepak Greenfield PROF CHEM 8 (BAS METB)on Anion gap [Moles/Vol] 14.9 mmol/L Normal [facility] Comment on above: Performed By: #### C BC #### [facility] [address] [address] [address] Deepak Greenfield Calcium [Mass/Vol] 8.8 mg/dL Normal 8.5-10.1 [facility] Comment on above: Performed By: #### C BC #### [facility] [address] [address] [address] Deepak Greenfield Chloride [Moles/Vol] 105 mmol/L Normal 98-107 [facility] Comment on above: Performed By: #### C BC #### [facility] [address] [address] [address] Deepak Greenfield CO2 [Moles/Vol] 26.4 mmol/L Normal 21.0-32.0 [facility] [place] Comment on above: Performed By: #### C BC #### [facility] [address] [place] [address] Dr. Deepak Greenfield Creatinine [Mass/Vol] 0.70 mg/dL Normal 0.70-1.30 [facility] Comment on above: Performed By: #### C BC #### [facility] [address] [place] [address] Dr. Deepak Greenfield EGFR-AF ITALIAN >60 Normal >=60 [facility] [place] Comment on above: Performed By: #### C BC #### [facility] [address] [place] [address] Dr. Deepak Greenfield EGFR-NON AF ITALIAN >60 Normal >=60 [facility] Comment on above: Performed By: #### C BC #### [facility] [address] [place] [address] Dr. Deepak Greenfield Glucose [Mass/Vol] 129 mg/dL Critically high 74-106 [facility] Comment on above: Performed By: #### C BC #### [facility] [address] [place] [address] Dr. Deepak Greenfield Potassium [Moles/Vol] 4.3 mmol/L Normal 3.5-5.1 [facility] Comment on above: Performed By: #### C BC #### [facility] [address] [address] [address] Deepak Greenfield Sodium [Moles/Vol] 142 mmol/L Normal 136-145 [facility] Comment on above: Performed By: #### C BC #### [facility] [address] [place] [address] Dr. Deepak Greenfield Urea nitrogen [Mass/Vol] 6.0 mg/dL Critically low 7.0-18.0 [facility] Comment on above: Performed By: #### C BC #### [facility] [address] [place] [address] Dr. Deepak Greenfield Urea nitrogen/Creatinine [Mass ratio] 8.6 mg/mg Normal [facility] Comment on above: Performed By: #### C BC #### [facility] [address] [place] [address] Dr. Deepak Greenfield AMMONIAon 07-30-2022 Ammonia (P) [Moles/Vol] 64 umol/L Critically high 11-32 [facility] Comment on above: Performed By: #### C BC #### [facility] [address] [place] [address] Dr. Deepak Greenfield CBC AUTO DIFFon 07-30-2022 BASO # 0.0 103/ul Normal 0.0-0.1 [facility] Comment on above: Performed By: #### I NFLUAB #### [facility] [address] [place] [address] Dr. Deepak Greenfield Basophils/100 WBC (Bld) 0.0 % Critically low 0.2-2.0 [facility] Comment on above: Performed By: #### I NFLUAB #### [facility] [address] [place] [address] Dr. Deepak Greenfield EO # 0.0 103/ul Normal 0.0-0.7 [facility] Comment on above: Performed By: #### I NFLUAB #### [facility] [address] [place] [address] Dr. Deepak Greenfield Eosinophils/100 WBC (Bld) 0.0 % Critically low 0.9-7.0 [facility] Comment on above: Performed By: #### I NFLUAB #### [facility] [address] [place] [address] Dr. Deepak Greenfield Erythrocyte distribution width (RBC) [Ratio] 13.1 % Normal 11.0-15.0 [facility] Comment on above: Performed By: #### I NFLUAB #### [facility] [address] [place] [address] Dr. Deepak Greenfield Hematocrit (Bld) [Volume fraction] 31.4 % Critically low 42.0-54.0 [facility] Comment on above: Performed By: #### I NFLUAB #### [facility] [address] [place] [address] Dr. Deepak Greenfield Hemoglobin (Bld) [Mass/Vol] 10.5 g/dL Critically low 14.0-18.0 [facility] Comment on above: Performed By: #### I NFLUAB #### [facility] [address] [place] [address] Dr. Deepak Greenfield IG # 0.01 10e3/ul Normal 0.00-0.03 [facility] Comment on above: Performed By: #### I NFLUAB #### [facility] [address] [place] [address] Dr. Deepak Greenfield IG % 0.2 % Normal 0.0-0.5 [facility] Comment on above: Performed By: #### I NFLUAB #### [facility] [address] [place] [address] Dr. Deepak Greenfield LYMPH # 1.5 103/ul Normal 1.2-3.8 [facility] Comment on above: Performed By: #### I NFLUAB #### [facility] [address] [place] [address] Dr. Deepak Greenfield Lymphocytes/100 WBC (Bld) 27.5 % Normal 20.5-60.0 [facility] Comment on above: Performed By: #### I NFLUAB #### [facility] [address] [place] [address] Dr. Deepak Greenfield MANUAL DIFF REQ NO Normal [facility] Comment on above: Performed By: #### I NFLUAB #### [facility] [address] [address] [address] Deepak Greenfield MCH (RBC) [Entitic mass] 32.4 pg Normal 25.9-34.0 [facility] Comment on above: Performed By: #### I NFLUAB #### [facility] [address] [place] [address] Dr. Deepak Greenfield MCHC (RBC) [Mass/Vol] 33.4 g/dL Normal 29.9-35.2 [facility] Comment on above: Performed By: #### I NFLUAB #### [facility] [address] [place] [address] Dr. Deepak Greenfield MCV (RBC) [Entitic vol] 96.9 fL Critically high 80.0-94.0 [facility] Comment on above: Performed By: #### I NFLUAB #### [facility] [address] [place] [address] Dr. Deepak Greenfield MONO # 0.2 103/ul Critically low 0.3-0.8 [facility] Comment on above: Performed By: #### I NFLUAB #### [facility] [address] [place] [address] Dr. Deepak Greenfield Monocytes/100 WBC (Bld) 2.9 % Normal 1.7-12.0 [facility] Comment on above: Performed By: #### I NFLUAB #### [facility] [address] [place] [address] Dr. Deepak Greenfield NEUT # 3.8 103/ul Normal 1.4-6.5 [facility] Comment on above: Performed By: #### I NFLUAB #### [facility] [address] [place] [address] Dr. Deepak Greenfield Neutrophils/100 WBC (Bld) 69.4 % Normal 43.0-75.0 [facility] Comment on above: Performed By: #### I NFLUAB #### [facility] [address] [place] [address] Dr. Deepak Greenfield Platelet mean volume (Bld) [Entitic vol] 9.4 fL Critically low 9.5-13.5 [facility] Comment on above: Performed By: #### I NFLUAB #### [facility] [address] [address] [address] Deepak Greenfield PLT 256 103/ul Normal 150-450 [facility] Comment on above: Performed By: #### I NFLUAB #### [facility] [address] [address] [address] Deepak Greenfield RBC 3.24 106/ul Critically low 4.70-6.10 [facility] Comment on above: Performed By: #### I NFLUAB #### [facility] [address] [address] [address] Deepak Greenfield WBC 5.5 103/ul Normal 4.0-11.0 [facility] Comment on above: Performed By: #### I NFLUAB #### [facility] [address] [place] [address] Dr. Deepak Greenfield Coding Summary.on 07-30-2022 Coding Summary. CD:[id number] W w+PGhlYWQ+[id number] ozAYgzV3oR3WQCOuCXpyb UVGTKVeEMcCsnbOlEN1qc XNjZXJu IC8+OF4tDIOyLxltdZTjq 7I8zKV1E68usj7eHTgviT C7JFCsZsZpmwjak0hepIt 6IDcuNmluOyBt NCKtlN67HST7pG49Uh79g TYzlZCtn6tuoIz7CnZcWE CwKGT7iYstKZzhi1DwLWH gL49lnYJaa4U2 ODYodSyybBTqZwNigGP4o E4jDLtuyzgsw9muszumZn h9ws52rTFdj0P8kLK9F3N jrmD3BSMdvOSe VjxidXBGgR6xksyyo5kyz wtgYjTmXYKmAUv4XGa6UW DrxEtrIyYfLG91HZP0ACF ythClP5IbKITx xYdcWyX6h6D0Dy8EG4UJG hbkQ7SKYTRGPRidxUV+PC 39fz11O3WkBpapRks7LSJ wNBM6tXI1uY0f RVCaMNapf0M7yBA2G2Hba uVcip9fp5ntTJDgEUdnR6 2cfOWxu2Z0KZRtuFA5KKB zbGbySyKnwA80 Oyc+WWYoeFbug0CuPbjfk 3duf6atxZr0PvkcTZWnvi OsqLeiHAJ7q4FjTf6aAKW paYK1bXG7rH0q OrOuWhK1LIwsL211PiLny BBuFlftF41zM2QcmOA+PH WyXji8AGKgwIzzHJ3xA5Q hZGRpbmctbGVm jWkhAA2fQUGjhscfBYIya O0bBQNpF1r9BtQjQcN8AB pnQ5AoEIRalxklOe88iD5 hInEoTkW0QAxt B3GayhZ1CDJhmYNbITskH CK5F36lh3H1KAFuMLNbLC P3eAP0nF8abFjxgeektEX mdDsgdmVydGlj BOibIEpcI549HOBdaWbeD kNvZGluZyBEYXRlOiAgMD QvMTMvMjAyMzwvdGQ+PHR sBWH0qNojPNMd xFVlQFnvNq3nwTdhvQdkS I4jQGVovcdvNDYttN6xQP UfwHQfbMqbPF2gBJTmaqu up559JgYmIXR4 HXHomWQsE8YvwQ6tIbWqV USuLKHbH8VhrYGfZSnsH3 74ZLmiZiR3IHGsvxKtB2D sLWFsaWduOiB0 g3Q3Ec5Oe1NdrcacN9Ikq WHxKxOcHdshWCz8F2GhNq wvdHI+ZY64FJDfTZ01KIc 0BBY6nJsyFVzp MYMdY1WbhH6eMxHoAHKcH GRkOyc+PHRhYmxlIHdpZH RoPScxMDAlJyBzdHlsZT0 sUm0oDBPhCAZo rXjupQFqZyMhp3zqQOLoG EyzPO7zqXewI6QapLI9BS Btc5m2Yo39H41lJ6OgoNC +NNFacQG3lXR6 lN1yZaWpMqH8TBgrD071H fTruOCsCxjfo5ahp7dyfO p0RdZ3ROUyaiHnmPdxPUW 5s5CmHq21I95d IHdpZHRoPSIxNSUiIHZhb Mboyr6sbC2eFf1+PGNvbC W4oRD8vZ0uOcOzIeT9BCf lS202IaVppBPq Vhmlm3oin1hrmAp9YmPfE XVzgpKfcSfgGBP5g0OtFy 97L6JxaRlbq5EzWsq9mw5 3ePWzu8E0wIY0 B4PfHPLxwdwqjNPpcHxlI T3lPZBvwlupKRScrS7eKS VxR1s1PdCtWwM2GLkaF1M rzaC8LHKmyKSz XLHlzIEXzU5lpfnvt0iiv ziqGfXrQSZpIAz5TMb8TC GfwKquYfYkVND7HvG9SQO 2kASmvY1kmIyv ebpftO6uCsc+WTU0cVObl TVGOG8nObuygAM+PHRkIH U6lKqrEXoqIMNviI4fRQR hK9q5IeOoGoD7 YHqiF4QfqaJ5OTLcgZUoD FRhlSREpJ6xsktrc7fqem xjMdBlPYUwQTh0UWm7MGY saWduOiBsZWZ0 UjG7AQW6tKVurI1ddFwhh gjsiK6hQit+QmlydGggRG F5GDt6D0HqYwe0UVEspQj iQC1vvQSvGQxy Uy8iwJygsAtyXO8oHDQtg umfv092XgUos6atAAMgsW JwNDetMNS0T74xx0R0NBT jTHPdHYU5fJW4 yT9geOxyfoyuvOAssYebc jLavFxuAYimACcvA877IT FsxYcrMoHmMEy1G3KiTsb 3YBGbpLutBF5t lCHlJTbrAc3psOadnOnnY M5bJMHnkrtqf687ThLww2 ibOCHewDKnMPbvPQY4L18 da4T9XGMmZQZp POV5bSU9pW6gjAxghcfan GVmdDsgdmVydGljYWwtYW irE981BJYfcYgxJzNlsPw 1U8IeMpg3KOZx jQslQR8hbTBdPWaqCz3ir YbyqKlkRH5aTPXfwmmpr6 40JlInd3pwJFCizZMdGFd iIXU0F25uu6V1 TRGgRIChMYJ7tMH0lN3lp GlnbjogbGVmdDsgdmVydG mdULguGHfgN249QMDdrQh nPlBhdGllbnQg RUsqRNr9K0JwPpnsmGY+P I85VDTbQE32fMGnjBRqk1 tmaGg3RiGnTEKdQXS5hCd uDXeag4SySVZt D31ecZYnp8X4FXWtgMpxw RTwKiUxpCB6jM9zAHqmkq fpc7byaykiBimnr5exgv3 9dC08N29sEFrc ZHRoPSIzMCUiIHZhbGlnb t9lmK4cSe2+KKZaeSQ4lG F2xL7jLHAvEtN9RGbfR59 9InRvcCIvPjxj q2syi1vyxDm8SoJ7FDSnh eSqmUcjFGM8g9MhWb07Y7 9sIHdpZHRoPSIyMCUiIHZ slDpdky3ziW0p Ii8+NECydEO7jIL8bY0nL hHaRkZ8HJxoG077OjPbmK HtKjfdH92zV6XcnLN+PHR iKgb6LXZsuCji VB2buMFmEBffDj6uHTW7V lLcZvQqEHugR9WpHXPjlk hwcittwHN4UXFlJRNjhE5 6Na9bhNcrOVXl nVSIyU8pnbynb0hmlfxbN lAvEXYbMTn2ZYy7MZIcaB qwVlAyZIR8DsX1WZG5aMS iaH3sjMlyecbc wR4zV6IpNOYyiqzeXv38f G9nFsPfXaV8ZTxcHza+U0 2CTLBADRCBUNWLDgZJOG5 0IR26eMRrv9U9 xYR7Z5CzUONpytdtudekl KF3CJYeNUNcxZ37dGSwYW woSp2mz0V4e872ZUCyXBI srU14Jr4lsGrx XVIosQNQmZ9wvxhsx1yvm fcyErIwPKAlMHb2YAo6JR EqbJetCaUnAXW6XcU1AYT 6uERhyN8ipVqv egxghU7mOay+MTAvMTYvM Qs1NUpnzMH+QOCaBEC6qR yfSSsyNPKamY0mMLNuW5w 5ZbPvHfF7CByw P4ZyVAUvokijSr64sH2mZ xWuYcB5PVwdT9KbocK5SW LzqABfIPobKVD1N21mf8M 7TQIvYZDwLBT2 dHD8eX1jwWdmhjnzkYVcz DsgdmVydGljYWwtYWxpZ2 46IHRvcDsnPjQyIFllYXJ zZO63JI03dDGh h7U6iEC6X6PlOBAeywarn mvqoGW9JIPkIDQmuA42yS EpXPmgQw2hz2J4r934DXI vYZYwfE55Io2q pXphTUDgeUBOcR3knkdxk 5yczgypAvRjCANiCCo1KP u8DQQlkBggNdPzOFJ8ErY 6AGA5iISriH4d wYevlnoggO5iKgv+TWFsZ TwvdGQ+MTHdNZD2eVdpEX haDQJywB6lCUIfL1b0HaF kBiL0QTuaR9Hu ATXalwblIj72rL2nZhWsG eL5GFchZ0NiawK4YUMqrF YwFQgiCQC3W88ol4K2HKV fAYLkKHS2sRU3 qD7isCbqsczukZIpzYipq oQbfSvxTPltXOdmR264IV RtiCucOh82xIGfkQjoafA 6Y4SsAmkjnGY+ XA23EMKrUE66yVMqiOApv 5vubZu3XtAwBKCiKBX8lD jkAJvnu5PxGJVpX30mhSI ib0I7SAGciGbl nCDbHjXjpFD4qK9cYCbtj sjfu9nmxfthYdzoc7lylt 24rC52M49kVRpsUOWaDEO zMCUiIHZhbGln ox8sbB6pGk8+THYclSB2v LU9mZ2zHdDoTiZ7PGouY7 42MxKmyCUfBcmaq8tcb6p dhMl5HqTjNHPu fdHjcVncYMK2e6IdAj90E 29sIHdpZHRoPSIyMCUiIH SziFbgwl6fdC5zCf6+PC9 gh2klhy27tE35 dHI+GIIiERT1vAtjENdyK TKnkK7oJZhnTkO4SKApSu XuaI47oYRlXOnyLg0rdXi whFxcXW0uPETj tnduu038RsKsk2tmXGGhc HYfKMxxSIE6J25wa4A0BD VaPHGmBAA3zOU0lP4iuLb nbjogbGVmdDsg ukHmoHkeTQmvCDekJ792E WLcoFvlUqNnpVNjB6pmxt OGCA6mRtzsmNB+PHRkIHN 0eWxlPSdwYWRk tS4fVXZpE6y0XfPhLuE7E TjeW0PgrvL5AEDfcGAeJN DoiDXHfL8jepxiv5fnzru gIzAwMDAwMDt0 LXg0JQHsqTlmTyXpNZN6O mS6RFN8eHTxrM5cfOzgih ewlF7vCac+RklOOjwvdGQ +WHSdEMO7gCxv XHtqXIUkzC2uSLKlO8c8C dOcItQ6ALntQ5JdcaV6YR VreNXiFPKbtIFJmV2sanh ts7hmlgflWaBs YAVoCYv5DRq2AFBaiYrpJ uDcCNH9XmK5GBC0rJRfyP 5lvErlzrlduM6lYmk+TVJ OOjwvdGQ+PHRk SQZ1xAicOXqaWTRshU3nL RTlU2o3MbBpXlY5NXxyH8 GcdwN6ENKzlWMkJCScvKF MyZ5xwncer8op pplpWcToGEZxKZr7CPx1R UUvmPlgNuIwNEE6OsI2RH X0fVHirS7xhOobxwoccL8 wOyc+SHJ6JGP8 ZD42AQ88H6RfCncmnHMft +PHRhYmxlIHdpZHRoPS nmVGYyUqSyxQoeLF5sMs2 yZGVyLWNvbGxh cHNlOiBj (more content not included)... Normal [facility] PROF CHEM 8 (BAS METB)on Anion gap [Moles/Vol] 8.3 mmol/L Normal [facility] Comment on above: Performed By: #### I NFLUAB #### [facility] [address] [place] [address] Dr. Deepak Greenfield Calcium [Mass/Vol] 8.5 mg/dL Normal 8.5-10.1 [facility] Comment on above: Performed By: #### I NFLUAB #### [facility] [address] [place] [address] Dr. Deepak Greenfield Chloride [Moles/Vol] 104 mmol/L Normal 98-107 [facility] Comment on above: Performed By: #### I NFLUAB #### [facility] [address] [address] [address] Deepak Greenfield CO2 [Moles/Vol] 30.0 mmol/L Normal 21.0-32.0 [facility] Comment on above: Performed By: #### I NFLUAB #### [facility] [address] [address] [address] Deepak Greenfield Creatinine [Mass/Vol] 0.46 mg/dL Critically low 0.70-1.30 [facility] Comment on above: Performed By: #### I NFLUAB #### [facility] [address] [place] [address] Dr. Deepak Greenfield EGFR-AF ITALIAN >60 Normal >=60 [facility] Comment on above: Performed By: #### I NFLUAB #### [facility] [address] [place] [address] Dr. Deepak Greenfield EGFR-NON AF ITALIAN >60 Normal >=60 [facility] Comment on above: Performed By: #### I NFLUAB #### [facility] [address] [place] [address] Dr. Deepak Greenfield Glucose [Mass/Vol] 152 mg/dL Critically high 74-106 [facility] Comment on above: Performed By: #### I NFLUAB #### [facility] [address] [place] [address] Dr. Deepak Greenfield Potassium [Moles/Vol] 4.3 mmol/L Normal 3.5-5.1 [facility] Comment on above: Performed By: #### I NFLUAB #### [facility] [address] [place] [address] Dr. Deepak Greenfield Sodium [Moles/Vol] 138 mmol/L Normal 136-145 [facility] Comment on above: Performed By: #### I NFLUAB #### [facility] [address] [address] [address] Deepak Greenfield Urea nitrogen [Mass/Vol] 9.0 mg/dL Normal 7.0-18.0 [facility] Comment on above: Performed By: #### I NFLUAB #### [facility] [address] [place] [address] Dr. Deepak Greenfield Urea nitrogen/Creatinine [Mass ratio] 19.6 mg/mg Normal [facility] Comment on above: Performed By: #### I NFLUAB #### [facility] [address] [place] [address] Dr. Deepak Greenfield AMMONIAon 07-29-2022 Ammonia (P) [Moles/Vol] 69 umol/L Critically high 11-32 [facility] Comment on above: Performed By: #### A MM #### [facility] [address] [place] [address] Dr. Deepak Greenfield CBC AUTO DIFFon 07-29-2022 BASO # 0.0 103/ul Normal 0.0-0.1 [facility] Comment on above: Performed By: #### M G, CMP #### [facility] [address] [place] [address] Dr. Deepak Greenfield Basophils/100 WBC (Bld) 0.2 % Normal 0.2-2.0 [facility] Comment on above: Performed By: #### M G, CMP #### [facility] [address] [place] [address] Dr. Deepak Greenfield EO # 0.0 103/ul Normal 0.0-0.7 [facility] Comment on above: Performed By: #### M G, CMP #### [facility] [address] [place] [address] Dr. Deepak Greenfield Eosinophils/100 WBC (Bld) 0.0 % Critically low 0.9-7.0 [facility] Comment on above: Performed By: #### M G, CMP #### [facility] [address] [place] [address] Dr. Deepak Greenfield Erythrocyte distribution width (RBC) [Ratio] 13.2 % Normal 11.0-15.0 [facility] Comment on above: Performed By: #### M G, CMP #### [facility] [address] [place] [address] Dr. Deepak Greenfield Hematocrit (Bld) [Volume fraction] 33.1 % Critically low 42.0-54.0 [facility] Comment on above: Performed By: #### M G, CMP #### [facility] [address] [place] [address] Dr. Deepak Greenfield Hemoglobin (Bld) [Mass/Vol] 10.8 g/dL Critically low 14.0-18.0 [facility] Comment on above: Performed By: #### M G, CMP #### [facility] [address] [place] [address] Dr. Deepak Greenfield IG # 0.04 10e3/ul Critically high 0.00-0.03 [facility] Comment on above: Performed By: #### M G, CMP #### [facility] [address] [place] [address] Dr. Deepak Greenfield IG % 0.5 % Normal 0.0-0.5 [facility] Comment on above: Performed By: #### M G, CMP #### [facility] [address] [place] [address] Dr. Deepak Greenfield LYMPH # 1.1 103/ul Critically low 1.2-3.8 [facility] Comment on above: Performed By: #### M G, CMP #### [facility] [address] [place] [address] Dr. Deepak Greenfield Lymphocytes/100 WBC (Bld) 13.6 % Critically low 20.5-60.0 [facility] Comment on above: Performed By: #### M G, CMP #### [facility] [address] [place] [address] Dr. Deepak Greenfield MANUAL DIFF REQ NO Normal [facility] Comment on above: Performed By: #### M G, CMP #### [facility] [address] [place] [address] Dr. Deepak Greenfield MCH (RBC) [Entitic mass] 32.2 pg Normal 25.9-34.0 [facility] Comment on above: Performed By: #### M G, CMP #### [facility] [address] [address] [address] Deepak Greenfield MCHC (RBC) [Mass/Vol] 32.6 g/dL Normal 29.9-35.2 [facility] Comment on above: Performed By: #### M G, CMP #### [facility] [address] [address] [address] Deepak Greenfield MCV (RBC) [Entitic vol] 98.8 fL Critically high 80.0-94.0 [facility] Comment on above: Performed By: #### M G, CMP #### [facility] [address] [place] [address] Dr. Deepak Greenfield MONO # 0.3 103/ul Normal 0.3-0.8 [facility] Comment on above: Performed By: #### M G, CMP #### [facility] [address] [place] [address] Dr. Deepak Greenfield Monocytes/100 WBC (Bld) 3.8 % Normal 1.7-12.0 [facility] Comment on above: Performed By: #### M G, CMP #### [facility] [address] [place] [address] Dr. Deepak Greenfield NEUT # 6.7 103/ul Critically high 1.4-6.5 [facility] Comment on above: Performed By: #### M G, CMP #### [facility] [address] [place] [address] Dr. Deepak Greenfield Neutrophils/100 WBC (Bld) 81.9 % Critically high 43.0-75.0 [facility] Comment on above: Performed By: #### M G, CMP #### [facility] [address] [address] [address] Deepak Greenfield Platelet mean volume (Bld) [Entitic vol] 9.6 fL Normal 9.5-13.5 [facility] Comment on above: Performed By: #### M G, CMP #### [facility] [address] [address] [address] Deepak Greenfield PLT 257 103/ul Normal 150-450 [facility] Comment on above: Performed By: #### M G, CMP #### [facility] [address] [address] [address] Deepak Greenfield RBC 3.35 106/ul Critically low 4.70-6.10 [facility] Comment on above: Performed By: #### M G, CMP #### [facility] [address] [place] [address] Dr. Deepak Greenfield WBC 8.2 103/ul Normal 4.0-11.0 [facility] Comment on above: Performed By: #### M G, CMP #### [facility] [address] [place] [address] Dr. Deepak Greenfield LACTATE/LACTIC ACIDon 2022 Lactate [Moles/Vol] 1.1 mmol/L Normal 0.4-2.0 [facility] Comment on above: Performed By: #### I NFLUAB #### [facility] [address] [place] [address] Dr. Deepak Greenfield PROF CHEM 8 (BAS METB)on Anion gap [Moles/Vol] 9.4 mmol/L Normal [facility] Comment on above: Performed By: #### I NFLUAB #### [facility] [address] [place] [address] Dr. Deepak Greenfield Calcium [Mass/Vol] 8.0 mg/dL Critically low 8.5-10.1 [facility] Comment on above: Performed By: #### I NFLUAB #### [facility] [address] [place] [address] Dr. Deepak Greenfield Chloride [Moles/Vol] 105 mmol/L Normal 98-107 [facility] Comment on above: Performed By: #### I NFLUAB #### [facility] [address] [place] [address] Dr. Deepak Greenfield CO2 [Moles/Vol] 30.7 mmol/L Normal 21.0-32.0 [facility] [place] Comment on above: Performed By: #### I NFLUAB #### [facility] [address] [place] [address] Dr. Deepak Greenfield Creatinine [Mass/Vol] 0.66 mg/dL Critically low 0.70-1.30 [facility] Comment on above: Performed By: #### I NFLUAB #### [facility] [address] [address] [address] Deepak Greenfield EGFR-AF ITALIAN >60 Normal >=60 [facility] [place] Comment on above: Performed By: #### I NFLUAB #### [facility] [address] [address] [address] Deepak Greenfield EGFR-NON AF ITALIAN >60 Normal >=60 [facility] Comment on above: Performed By: #### I NFLUAB #### [facility] [address] [address] [address] Deepak Greenfield Glucose [Mass/Vol] 177 mg/dL Critically high 74-106 T [facility] Comment on above: Performed By: #### I NFLUAB #### [facility] [address] [address] [address] Deepak Greenfield Potassium [Moles/Vol] 4.1 mmol/L Normal 3.5-5.1 [facility] Comment on above: Performed By: #### I NFLUAB #### [facility] [address] [place] [address] Dr. Deepak Greenfield Sodium [Moles/Vol] 141 mmol/L Normal 136-145 [facility] Comment on above: Performed By: #### I NFLUAB #### [facility] [address] [address] [address] Deepak Greenfield Urea nitrogen [Mass/Vol] 9.0 mg/dL Normal 7.0-18.0 [facility] Comment on above: Performed By: #### I NFLUAB #### [facility] [address] [place] [address] Dr. Deepak Greenfield Urea nitrogen/Creatinine [Mass ratio] 13.6 mg/mg Normal [facility] Comment on above: Performed By: #### I NFLUAB #### [facility] [address] [place] [address] Dr. Deepak Greenfield AMMONIAon 07-28-2022 Ammonia (P) [Moles/Vol] 68 umol/L Critically high 11-32 [facility] Comment on above: Performed By: #### B MP #### [facility] [address] [place] [address] Dr. Deepak Greenfield CBC AUTO DIFFon 07-28-2022 BASO # 0.0 103/ul Normal 0.0-0.1 [facility] Comment on above: Performed By: #### C BC #### [facility] [address] [place] [address] Dr. Deepak Greenfield Basophils/100 WBC (Bld) 0.3 % Normal 0.2-2.0 [facility] Comment on above: Performed By: #### C BC #### [facility] [address] [place] [address] Dr. Deepak Greenfield EO # 0.0 103/ul Normal 0.0-0.7 [facility] Comment on above: Performed By: #### C BC #### [facility] [address] [place] [address] Dr. Deepak Greenfield Eosinophils/100 WBC (Bld) 0.0 % Critically low 0.9-7.0 [facility] Comment on above: Performed By: #### C BC #### [facility] [address] [place] [address] Dr. Deepak Greenfield Erythrocyte distribution width (RBC) [Ratio] 13.3 % Normal 11.0-15.0 [facility] Comment on above: Performed By: #### C BC #### [facility] [address] [place] [address] Dr. Deepak Greenfield Hematocrit (Bld) [Volume fraction] 37.0 % Critically low 42.0-54.0 [facility] Comment on above: Performed By: #### C BC #### [facility] [address] [place] [address] Dr. Deepak Greenfield Hemoglobin (Bld) [Mass/Vol] 12.3 g/dL Critically low 14.0-18.0 [facility] Comment on above: Performed By: #### C BC #### [facility] [address] [place] [address] Dr. Deepak Greenfield IG # 0.06 10e3/ul Critically high 0.00-0.03 [facility] Comment on above: Performed By: #### C BC #### [facility] [address] [place] [address] Dr. Deepak Greenfield IG % 0.5 % Normal 0.0-0.5 [facility] Comment on above: Performed By: #### C BC #### [facility] [address] [place] [address] Dr. Deepak Greenfield LYMPH # 2.9 103/ul Normal 1.2-3.8 [facility] Comment on above: Performed By: #### C BC #### [facility] [address] [place] [address] Dr. Deepak Greenfield Lymphocytes/100 WBC (Bld) 23.5 % Normal 20.5-60.0 [facility] Comment on above: Performed By: #### C BC #### [facility] [address] [place] [address] Dr. Deepak Greenfield MANUAL DIFF REQ NO Normal [facility] Comment on above: Performed By: #### C BC #### [facility] [address] [place] [address] Dr. Deepak Greenfield MCH (RBC) [Entitic mass] 32.4 pg Normal 25.9-34.0 [facility] Comment on above: Performed By: #### C BC #### [facility] [address] [place] [address] Dr. Deepak Greenfield MCHC (RBC) [Mass/Vol] 33.2 g/dL Normal 29.9-35.2 [facility] Comment on above: Performed By: #### C BC #### [facility] [address] [place] [address] Dr. Deepak Greenfield MCV (RBC) [Entitic vol] 97.4 fL Critically high 80.0-94.0 [facility] Comment on above: Performed By: #### C BC #### [facility] [address] [place] [address] Dr. Deepak Greenfield MONO # 1.0 103/ul Critically high 0.3-0.8 [facility] Comment on above: Performed By: #### C BC #### [facility] [address] [place] [address] Dr. Deepak Greenfield Monocytes/100 WBC (Bld) 8.0 % Normal 1.7-12.0 [facility] Comment on above: Performed By: #### C BC #### [facility] [address] [place] [address] Dr. Deepak Greenfield NEUT # 8.3 103/ul Critically high 1.4-6.5 [facility] Comment on above: Performed By: #### C BC #### [facility] [address] [place] [address] Dr. Deepak Greenfield Neutrophils/100 WBC (Bld) 67.7 % Normal 43.0-75.0 [facility] Comment on above: Performed By: #### C BC #### [facility] [address] [place] [address] Dr. Deepak Greenfield Platelet mean volume (Bld) [Entitic vol] 9.7 fL Normal 9.5-13.5 [facility] Comment on above: Performed By: #### C BC #### [facility] [address] [place] [address] Dr. Deepak Greenfield PLT 325 103/ul Normal 150-450 [facility] Comment on above: Performed By: #### C BC #### [facility] [address] [place] [address] Dr. Deepak Greenfield RBC 3.80 106/ul Critically low 4.70-6.10 [facility] Comment on above: Performed By: #### C BC #### [facility] [address] [place] [address] Dr. Deepak Greenfield WBC 12.2 103/ul Critically high 4.0-11.0 [facility] Comment on above: Performed By: #### C BC #### [facility] [address] [place] [address] Dr. Deepak Greenfield CULTURE BLOODon 07-28-2022 Microscopic examination of blood, culture Culture Observations: NO GROWTH AT 5 DAYS. Normal [facility] Comment on above: Performed By: #### B [id number] #### [facility] [address] [place] [address] Dr. Deepak Greenfield Microscopic examination of blood, culture Culture Observations: NO GROWTH AT 5 DAYS. Normal [facility] Comment on above: Performed By: #### C BC #### [facility] [address] [place] [address] Dr. Deepak Greenfield LACTATE/LACTIC ACIDon 2022 Lactate [Moles/Vol] 2.5 mmol/L Critically high 0.4-2.0 [facility] Comment on above: Performed By: #### C VDTBH #### [facility] [address] [place] [address] Dr. Deepak Greenfield PROF 14(COMP METB)on 023 Albumin [Mass/Vol] 3.1 g/dL Critically low 3.4-5.0 [facility] Comment on above: Performed By: #### C BC #### [facility] [address] [place] [address] Dr. Deepak Greenfield Albumin/Globulin [Mass ratio] 0.7 {ratio} [facility] Comment on above: Performed By: #### C BC #### [facility] [address] [place] [address] Dr. Deepak Greenfield ALP [Catalytic activity/Vol] 51 U/L Normal 46-116 [facility] Comment on above: Performed By: #### C BC #### [facility] [address] [place] [address] Dr. Deepak Greenfield ALT [Catalytic activity/Vol] 106 U/L Critically high 16-63 [facility] Comment on above: Performed By: #### C BC #### [facility] [address] [place] [address] Dr. Deepak Greenfield Anion gap [Moles/Vol] 14.2 mmol/L [facility] Comment on above: Performed By: #### C BC #### [facility] [address] [place] [address] Dr. Deepak Greenfield AST [Catalytic activity/Vol] 81 U/L Critically high 15-37 [facility] Comment on above: Performed By: #### C BC #### [facility] [address] [address] [address] Deepak Greenfield Bilirubin [Mass/Vol] 0.4 mg/dL Normal 0.2-1.0 [facility] Comment on above: Performed By: #### C BC #### [facility] [address] [address] [address] Deepak Greenfield Calcium [Mass/Vol] 8.9 mg/dL Normal 8.5-10.1 [facility] Comment on above: Performed By: #### C BC #### [facility] [address] [place] [address] Dr. Deepak Greenfield Chloride [Moles/Vol] 105 mmol/L Normal 98-107 [facility] Comment on above: Performed By: #### C BC #### [facility] [address] [address] [address] Deepak Greenfield CO2 [Moles/Vol] 27.9 mmol/L Normal 21.0-32.0 [facility] Comment on above: Performed By: #### C BC #### [facility] [address] [place] [address] Dr. Deepak Greenfield Creatinine [Mass/Vol] 0.77 mg/dL Normal 0.70-1.30 [facility] Comment on above: Performed By: #### C BC #### [facility] [address] [place] [address] Dr. Deepak Greenfield EGFR-AF ITALIAN >60 Normal >=60 [facility] Comment on above: Performed By: #### C BC #### [facility] [address] [place] [address] Dr. Deepak Greenfield EGFR-NON AF ITALIAN >60 Normal >=60 [facility] Comment on above: Performed By: #### C BC #### [facility] [address] [address] [address] Deepak Greenfield Globulin (S) [Mass/Vol] 4.3 g/dL Normal [facility] Comment on above: Performed By: #### C BC #### [facility] [address] [address] [address] Deepak Greenfield Glucose [Mass/Vol] 162 mg/dL Critically high 74-106 [facility] Comment on above: Performed By: #### C BC #### [facility] [address] [address] [address] Deepak Greenfield Potassium [Moles/Vol] 4.1 mmol/L Normal 3.5-5.1 [facility] Comment on above: Performed By: #### C BC #### [facility] [address] [address] [address] Deepak Greenfield Protein [Mass/Vol] 7.4 g/dL Normal 6.4-8.2 [facility] Comment on above: Performed By: #### C BC #### [facility] [address] [place] [address] Dr. Deepak Greenfield Sodium [Moles/Vol] 143 mmol/L Normal 136-145 [facility] Comment on above: Performed By: #### C BC #### [facility] [address] [place] [address] Dr. Deepak Greenfield Urea nitrogen [Mass/Vol] 12.0 mg/dL Normal 7.0-18.0 [facility] Comment on above: Performed By: #### C BC #### [facility] [address] [place] [address] Dr. Deepak Greenfield Urea nitrogen/Creatinine [Mass ratio] 15.6 mg/mg Normal [facility] Comment on above: Performed By: #### C BC #### [facility] [address] [address] [address] Deepak Greenfield RESPIRATORY PANEL PLUSon Adenovirus Not detected Normal NOT DETECTED [facility] Comment on above: Performed By: #### B MP #### [facility] [address] [place] [address] Dr. Deepak Greenfield B. Parapertusis Not detected Normal NOT DETECTED [facility] Comment on above: Performed By: #### B MP #### [facility] [address] [place] [address] Dr. Deepak Ocampo Pertussis Not detected Normal NOT DETECTED [facility] Comment on above: Performed By: #### B MP #### [facility] [address] [place] [address] Dr. Deepak Greenfield Chlamydia Pneumoniae Not detected Normal NOT DETECTED [facility] Comment on above: Performed By: #### B MP #### [facility] [address] [place] [address] Dr. Deepak Greenfield Coronavirus 229E Not detected Normal NOT DETECTED [facility] Comment on above: Performed By: #### B MP #### [facility] [address] [place] [address] Dr. Deepak Greenfield Coronavirus HKU1 Not detected Normal NOT DETECTED [facility] Comment on above: Performed By: #### B MP #### [facility] [address] [place] [address] Dr. Deepak Greenfield Coronavirus NL63 Not detected Normal NOT DETECTED [facility] Comment on above: Performed By: #### B MP #### [facility] [address] [place] [address] Dr. Deepak Greenfield Coronavirus OC43 Not detected Normal NOT DETECTED [facility] Comment on above: Performed By: #### B MP #### [facility] [address] [place] [address] Dr. Deepak Greenfield Influenza A H1 Not detected Normal NOT DETECTED [facility] Comment on above: Performed By: #### B MP #### [facility] [address] [place] [address] Dr. Deepak Greenfield Influenza A H1 2009 Not detected Normal NOT DETECTED [facility] Comment on above: Performed By: #### B MP #### [facility] [address] [place] [address] Dr. Deepak Greenfield Influenza A H3 Not detected Normal NOT DETECTED [facility] Comment on above: Performed By: #### B MP #### [facility] [address] [place] [address] Dr. Deepak Greenfield Influenza B Not detected Normal NOT DETECTED [facility] Comment on above: Performed By: #### B MP #### [facility] [address] [address] [address] Deepak Greenfield Metapneumovirus Detected Abnormal NOT DETECTED The [facility] Comment on above: Performed By: #### B MP #### [facility] [address] [place] [address] Dr. Deepak Greenfield Mycoplas. Pneumoniae Not detected Normal NOT DETECTED [facility] Comment on above: Performed By: #### B MP #### [facility] [address] [address] [address] Deepak Greenfield Parainfluenza 1 Not detected Normal NOT DETECTED [facility] Comment on above: Performed By: #### B MP #### [facility] [address] [address] [address] Deepak Greenfield Parainfluenza 2 Not detected Normal NOT DETECTED [facility] Comment on above: Performed By: #### B MP #### [facility] [address] [place] [address] Dr. Deepak Greenfield Parainfluenza 3 Not detected Normal NOT DETECTED [facility] Comment on above: Performed By: #### B MP #### [facility] [address] [place] [address] Dr. Deepak Greenfield Parainfluenza 4 Not detected Normal NOT DETECTED [facility] Comment on above: Performed By: #### B MP #### [facility] [address] [address] [address] Deepak Greenfield Rhino/Enterovirus Not detected Normal NOT DETECTED [facility] Comment on above: Performed By: #### B MP #### [facility] [facility] [place] [facility] [address] [address] [address] Deepak AUSTIN Header 1 RESPIRATORY PANEL: VIRUSES Normal [facility] [place] Comment on above: Performed By: #### B MP #### [facility] [place] [facility] [address] [place] [address] Dr. Deepak AUSTIN Header 2 RESPIRATORY PANEL: BACTERIA Normal [facility] [place] Comment on above: Performed By: #### B MP #### [facility] [place] [facility] [address] [address] [address] Deepak Greenfield RSV Not detected Normal NOT DETECTED [facility] Comment on above: Performed By: #### B MP #### [facility] [place] [facility] [address] [address] [address] Deepak Greenfield SARS-CoV-2 (COVID-19) RNA CINDY+probe Ql (Unsp spec) Not detected Normal NOT DETECTED [facility] [place] Comment on above: Performed By: #### B MP #### [facility] [place] [facility] [address] [address] [address] Deepak Greenfield XR CHEST 1 Von [...] Akua PEREZ Date: 2022-07-28 20:23 Normal [facility] AMMONIAon 07-27-2022 Ammonia (P) [Moles/Vol] 76 umol/L Critically high [facility] Comment on above: Performed By: #### M G, CMP #### [facility] [address] [place] [address] Dr. Deepak Greenfield CBC W MANUAL DIFFon 07-28-19 23 ATYPICAL LYMPH # Normal [facility] [place] Comment on above: Performed By: #### M G, CMP #### [facility] [address] [place] [address] Dr. Deepak Greenfield ATYPICAL LYMPH % Normal [facility] [place] Comment on above: Performed By: #### M G, CMP #### [facility] [address] [place] [address] Dr. Deepak Greenfield BAND # 0.4 103/ul Critically high 0.0-0.3 [facility] Comment on above: Performed By: #### M G, CMP #### [facility] [address] [place] [address] Dr. Deepak Greenfield BAND % 4 % Normal 0-5 [facility] Comment on above: Performed By: #### M G, CMP #### [facility] [address] [place] [address] Dr. Deepak Greenfield BASOM # 0.00 103/ul Normal 0.00-0.10 [facility] Comment on above: Performed By: #### M G, CMP #### [facility] [address] [place] [address] Dr. Deepak Greenfield BASOM % 0.0 % Critically low 0.2-2.0 [facility] Comment on above: Performed By: #### M G, CMP #### [facility] [address] [place] [address] Dr. Deepak Greenfield BLAST # Normal [facility] Comment on above: Performed By: #### M G, CMP #### [facility] [place] [facility] [address] [place] [address] Dr. Deepak Greenfield BLAST % Normal [facility] [place] Comment on above: Performed By: #### M G, CMP #### [facility] [place] [facility] [address] [place] [address] Dr. Deepak Greenfield CORRECTED WBC Normal 4.0-11.0 [facility] Comment on above: Performed By: #### M G, CMP #### [facility] [address] [place] [address] Dr. Deepak Greenfield EOS # 0.00 103/ul Normal 0.00-0.70 [facility] Comment on above: Performed By: #### M G, CMP #### [facility] [facility] [address] [place] [address] Dr. Deepak Greenfield EOS% 0.0 % Critically low 0.9-7.0 [facility] Comment on above: Performed By: #### M G, CMP #### [facility] [place] [facility] [address] [address] [address] Deepak Greenfield HCT 29.6 % Critically low 42.0-54.0 [facility] Comment on above: Performed By: #### M G, CMP #### [facility] [facility] [address] [address] [address] Deepak Greenfield HGB 10.4 g/dl Critically low 14.0-18.0 [facility] Comment on above: Performed By: #### M G, CMP #### [facility] [address] [place] [address] Dr. Deepak Greenfield LYMPHM # 0.71 103/ul Critically low 1.20-3.80 [facility] Comment on above: Performed By: #### M G, CMP #### [facility] [address] [place] [address] Dr. Deepak Greenfield LYMPHM% 8.0 % Critically low 20.5-60.0 [facility] Comment on above: Performed By: #### M G, CMP #### [facility] [address] [place] [address] Dr. Deepak Greenfield MCH 33.0 pg Normal 25.9-34.0 [facility] Comment on above: Performed By: #### M G, CMP #### [facility] [address] [place] [address] Dr. Deepak Greenfield MCHC 35.1 g/dl Normal 29.9-35.2 [facility] Comment on above: Performed By: #### M G, CMP #### [facility] [address] [place] [address] Dr. Deepak Greenfield MCV 94.0 fL Normal 80.0-94.0 [facility] Comment on above: Performed By: #### M G, CMP #### [facility] [address] [place] [address] Dr. Deepak Greenfield METAMYELOCYTE # Normal [facility] Comment on above: Performed By: #### M G, CMP #### [facility] [facility] [address] [address] [address] Deepak Greenfield METAMYELOCYTE % Normal [facility] Comment on above: Performed By: #### M G, CMP #### [facility] [address] [address] [address] Deepak Greenfield MONOM# 0.71 103/ul Normal 0.30-0.80 [facility] Comment on above: Performed By: #### M G, CMP #### [facility] [address] [place] [address] Dr. Deepak Greenfield MONOM% 8.0 % Normal 1.7-12.0 [facility] Comment on above: Performed By: #### M G, CMP #### [facility] [address] [place] [address] Dr. Deepak Greenfield MPV 9.6 fL Normal 9.5-13.5 [facility] Comment on above: Performed By: #### M G, CMP #### [facility] [address] [place] [address] Dr. Deepak Greenfield MYELOCYTE # Normal [facility] Comment on above: Performed By: #### M G, CMP #### [facility] [address] [place] [address] Dr. Deepak Greenfield MYELOCYTE % Normal [facility] [place] Comment on above: Performed By: #### M G, CMP #### [facility] [address] [place] [address] Dr. Deepak Greenfield NRBC Normal [facility] [place] Comment on above: Performed By: #### M G, CMP #### [facility] [address] [place] [address] Dr. Deepak Greenfield PLT 267 103/ul Normal 150-450 [facility] Comment on above: Performed By: #### M G, CMP #### [facility] [address] [place] [address] Dr. Deepak Greenfield RBC 3.15 106/ul Critically low 4.70-6.10 [facility] Comment on above: Performed By: #### M G, CMP #### [facility] [address] [address] [address] Deepak Greenfield RDW 12.9 % Normal 11.0-15.0 [facility] Comment on above: Performed By: #### M G, CMP #### [facility] [address] [address] [address] Deepak Greenfield SEG # 7.12 103/ul Critically high 1.40-6.50 [facility] [place] Comment on above: Performed By: #### M G, CMP #### [facility] [address] [address] [address] Deepak Greenfield SEG % 80.0 % Critically high 43.0-75.0 [facility] Comment on above: Performed By: #### M G, CMP #### [facility] [address] [place] [address] Dr. Deepak Greenfield WBC 8.9 103/ul Normal 4.0-11.0 [facility] Comment on above: Performed By: #### M G, CMP #### [facility] [address] [place] [address] Dr. Deepak Greenfield PROF CHEM 8 (BAS METB)on Anion gap [Moles/Vol] 12.4 mmol/L Normal [facility] Comment on above: Performed By: #### C BC #### [facility] [address] [place] [address] Dr. Deepak Greenfield Calcium [Mass/Vol] 8.2 mg/dL Critically low 8.5-10.1 [facility] Comment on above: Performed By: #### C BC #### [facility] [address] [place] [address] Dr. Deepak Greenfield Chloride [Moles/Vol] 101 mmol/L Normal 98-107 [facility] Comment on above: Performed By: #### C BC #### [facility] [address] [place] [address] Dr. Deepak Greenfield CO2 [Moles/Vol] 25.0 mmol/L Normal 21.0-32.0 [facility] Comment on above: Performed By: #### C BC #### [facility] [address] [place] [address] Dr. Deepak Greenfield Creatinine [Mass/Vol] 0.53 mg/dL Critically low 0.70-1.30 [facility] Comment on above: Performed By: #### C BC #### [facility] [address] [address] [address] Deepak Greenfield EGFR-AF ITALIAN >60 Normal >=60 [facility] [place] Comment on above: Performed By: #### C BC #### [facility] [address] [place] [address] Dr. Deepak Greenfield EGFR-NON AF ITALIAN >60 Normal >=60 [facility] Comment on above: Performed By: #### C BC #### [facility] [address] [place] [address] Dr. Deepak Greenfield Glucose [Mass/Vol] 161 mg/dL Critically high 74-106 T [facility] Comment on above: Performed By: #### C BC #### [facility] [address] [place] [address] Dr. Deepak Greenfield Potassium [Moles/Vol] 4.4 mmol/L Normal 3.5-5.1 [facility] Comment on above: Performed By: #### C BC #### [facility] [address] [place] [address] Dr. Deepak Greenfield Sodium [Moles/Vol] 134 mmol/L Critically low 136-145 Th [facility] Comment on above: Performed By: #### C BC #### [facility] [address] [place] [address] Dr. Deepak Greenfield Urea nitrogen [Mass/Vol] 13.0 mg/dL Normal 7.0-18.0 [facility] Comment on above: Performed By: #### C BC #### [facility] [address] [place] [address] Dr. Deepak Greenfield Urea nitrogen/Creatinine [Mass ratio] 24.5 mg/mg Normal [facility] Comment on above: Performed By: #### C BC #### [facility] [address] [place] [address] Dr. Deepak Greenfield AMMONIAon 07-26-2022 Ammonia (P) [Moles/Vol] 56 umol/L Critically high 11-32 [facility] [place] Comment on above: Performed By: #### M G, CMP #### [facility] [address] [place] [address] Dr. Deepak Greenfield CARDIAC BEATRIS ADMITon 023 CK [Catalytic activity/Vol] 83 U/L Normal 39-308 [facility] Comment on above: Performed By: #### B MP #### [facility] [address] [place] [address] Dr. Deepak Greenfield CK.MB [Mass/Vol] 0.86 ng/mL Normal <=3.60 The [facility] Comment on above: Performed By: #### B MP #### [facility] [address] [place] [address] Dr. Deepak Greenfield HSTROP 7.4 pg/mL Normal 4.0-76.1 [facility] [place] Comment on above: Result Comment: CUT- OFF POINTS HAVE BEEN ESTABLISHED BASED ON THE FOURTH UNIVERSAL DEFINITIONS OF MYOCARDIAL INFARCTION. THE UPPER REFERENCE LIMIT (URL) OF TROPONIN, DEFINED THE 99TH PERCENTILE OF cTnI DISTRIBUTION IN A REFERENCE POPULATION, HAS BEEN CONFIRMED THE DECISION THRESHOLD FOR OK DIAGNOSIS. Performed By: #### B MP #### [facility] [address] [place] [address] Dr. Deepak Greenfield VALE 46 ng/mL Normal 16-96 [facility] Comment on above: Performed By: #### B MP #### [facility] [address] [place] [address] Dr. Deepak Greenfield CBC AUTO DIFFon 07-26-2022 BASO # 0.1 103/ul Normal 0.0-0.1 [facility] Comment on above: Performed By: #### M G, CMP #### [facility] [address] [place] [address] Dr. Deepak Greenfield Basophils/100 WBC (Bld) 0.5 % Normal 0.2-2.0 [facility] Comment on above: Performed By: #### M Lacy, CMP #### [facility] [address] [place] [address] Dr. Deepak Greenfield EO # 0.2 103/ul Normal 0.0-0.7 [facility] Comment on above: Performed By: #### M G, CMP #### [facility] [address] [place] [address] Dr. Deepak Greenfield Eosinophils/100 WBC (Bld) 2.1 % Normal 0.9-7.0 [facility] Comment on above: Performed By: #### M G, CMP #### [facility] [address] [place] [address] Dr. Deepak Greenfield Erythrocyte distribution width (RBC) [Ratio] 13.2 % Normal 11.0-15.0 [facility] Comment on above: Performed By: #### M G, CMP #### [facility] [address] [place] [address] Dr. Deepak Greenfield Hematocrit (Bld) [Volume fraction] 36.7 % Critically low 42.0-54.0 [facility] Comment on above: Performed By: #### M G, CMP #### [facility] [address] [place] [address] Dr. Deepak Greenfield Hemoglobin (Bld) [Mass/Vol] 12.4 g/dL Critically low 14.0-18.0 [facility] Comment on above: Performed By: #### M G, CMP #### [facility] [address] [place] [address] Dr. Deepak Greenfield IG # 0.04 10e3/ul Critically high 0.00-0.03 [facility] Comment on above: Performed By: #### M G, CMP #### [facility] [address] [place] [address] Dr. Deepak Greenfield IG % 0.4 % Normal 0.0-0.5 [facility] Comment on above: Performed By: #### M G, CMP #### [facility] [address] [place] [address] Dr. Deepak Greenfield LYMPH # 1.7 103/ul Normal 1.2-3.8 [facility] Comment on above: Performed By: #### M G, CMP #### [facility] [address] [place] [address] Dr. Deepak Greenfield Lymphocytes/100 WBC (Bld) 15.6 % Critically low 20.5-60.0 [facility] Comment on above: Performed By: #### M G, CMP #### [facility] [address] [place] [address] Dr. Deepak Greenfield MANUAL DIFF REQ NO Normal [facility] Comment on above: Performed By: #### M G, CMP #### [facility] [address] [place] [address] Dr. Deepak Greenfield MCH (RBC) [Entitic mass] 32.5 pg Normal 25.9-34.0 [facility] Comment on above: Performed By: #### M G, CMP #### [facility] [address] [place] [address] Dr. Deepak Greenfield MCHC (RBC) [Mass/Vol] 33.8 g/dL Normal 29.9-35.2 [facility] Comment on above: Performed By: #### M G, CMP #### [facility] [address] [place] [address] Dr. Deepak Greenfield MCV (RBC) [Entitic vol] 96.3 fL Critically high 80.0-94.0 [facility] Comment on above: Performed By: #### M G, CMP #### [facility] [address] [place] [address] Dr. Deepak Greenfield MONO # 1.4 103/ul Critically high 0.3-0.8 [facility] Comment on above: Performed By: #### M G, CMP #### [facility] [address] [place] [address] Dr. Deepak Greenfield Monocytes/100 WBC (Bld) 12.8 % Critically high 1.7-12.0 [facility] Comment on above: Performed By: #### M G, CMP #### [facility] [address] [place] [address] Dr. Deepak Greenfield NEUT # 7.4 103/ul Critically high 1.4-6.5 [facility] Comment on above: Performed By: #### M G, CMP #### [facility] [address] [address] [address] Deepak Greenfield Neutrophils/100 WBC (Bld) 68.6 % Normal 43.0-75.0 [facility] Comment on above: Performed By: #### M G, CMP #### [facility] [address] [address] [address] Deepak Greenfield Platelet mean volume (Bld) [Entitic vol] 9.5 fL Normal 9.5-13.5 [facility] Comment on above: Performed By: #### M G, CMP #### [facility] [address] [address] [address] Deepak Greenfield PLT 314 103/ul Normal 150-450 [facility] Comment on above: Performed By: #### M G, CMP #### [facility] [address] [address] [address] Deepak Greenfield RBC 3.81 106/ul Critically low 4.70-6.10 [facility] Comment on above: Performed By: #### M G, CMP #### [facility] [address] [address] [address] Deepak Greenfield WBC 10.8 103/ul Normal 4.0-11.0 [facility] Comment on above: Performed By: #### M G, CMP #### [facility] [address] [address] [address] Deepak Greenfield [facility]on SARS-CoV-2 (COVID-19) RNA CIDNY+probe Ql (Unsp spec) Not detected Normal NOT DETECTED [facility] Comment on above: Result Comment: When diagnostic [...] for this test is supported by the [employer] of Health and Human Service's declaration that [...] used). Performed By: #### C VDTBH #### [facility] [address] [place] [address] Dr. Deepak Greenfield INFLUENZA A AND B AGon 07-26 INFLUANEGH SEE BELOW Normal [facility] Comment on above: Result Comment: Nega tive for Flu A protein angiten. Infection due to Flu A cannot be ruled out. Flu A angiten in the sample may be below the detection limit of the test. Performed By: #### I NFLUAB #### [facility] [address] [place] [address] Dr. Deepak Greenfield INFLUBNEG SEE BELOW Normal [facility] Comment on above: Result Comment: Nega tive for Flu B protein antigen. Infection due to Flu B cannot be ruled out. Flu B antigen in the sample may be below the detection limit of the test. Performed By: #### I NFLUAB #### [facility] [address] [place] [address] Dr. Deepak Greenfield INFLUENZA A AG Negative Normal NEGATIVE SEE COMMENT [facility] Comment on above: Performed By: #### I NFLUAB #### [facility] [address] [place] [address] Dr. Deepak Greenfield INFLUENZA B AG Negative Normal NEGATIVE SEE COMMENT [facility] Comment on above: Performed By: #### I NFLUAB #### [facility] [address] [place] [address] Dr. Deepak Greenfield LACTATE/LACTIC ACIDon 2022 Lactate [Moles/Vol] 1.2 mmol/L Normal 0.4-2.0 [facility] Comment on above: Performed By: #### M G, CMP #### [facility] [address] [place] [address] Dr. Deepak Greenfield PROF 14(COMP METB)on 023 Albumin [Mass/Vol] 3.3 g/dL Critically low 3.4-5.0 Th [facility] Comment on above: Performed By: #### B MP #### [facility] [address] [place] [address] Dr. Deepak Greenfield Albumin/Globulin [Mass ratio] 0.8 {ratio} Normal [facility] Comment on above: Performed By: #### B MP #### [facility] [address] [place] [address] Dr. Deepak Greenfield ALP [Catalytic activity/Vol] 45 U/L Critically low 46-116 [facility] Comment on above: Performed By: #### B MP #### [facility] [address] [place] [place] [address] Dr. Deepak rGeenfield ALT [Catalytic activity/Vol] 114 U/L Critically high 16-63 [facility] Comment on above: Performed By: #### B MP #### [facility] [address] [place] [address] Dr. Deepak Greenfield Anion gap [Moles/Vol] 14.5 mmol/L Normal [facility] Comment on above: Performed By: #### B MP #### [facility] [address] [place] [address] Dr. Deepak Greenfield AST [Catalytic activity/Vol] 71 U/L Critically high 15-37 [facility] Comment on above: Performed By: #### B MP #### [facility] [address] [place] [address] Dr. Deepak Greenfield Bilirubin [Mass/Vol] 0.7 mg/dL Normal 0.2-1.0 [facility] Comment on above: Performed By: #### B MP #### [facility] [address] [place] [address] Dr. Deepak Greenfield Calcium [Mass/Vol] 9.1 mg/dL Normal 8.5-10.1 [facility] Comment on above: Performed By: #### B MP #### [facility] [address] [place] [address] Dr. Deepak Greenfield Chloride [Moles/Vol] 98 mmol/L Normal 98-107 [facility] Comment on above: Performed By: #### B MP #### [facility] [address] [address] [address] Deepak Greenfield CO2 [Moles/Vol] 27.4 mmol/L Normal 21.0-32.0 [facility] Comment on above: Performed By: #### B MP #### [facility] [address] [address] [address] Deepak Greenfield Creatinine [Mass/Vol] 0.65 mg/dL Critically low 0.70-1.30 [facility] Comment on above: Performed By: #### B MP #### [facility] [address] [place] [address] Dr. Deepak Greenfield EGFR-AF ITALIAN >60 Normal >=60 [facility] Comment on above: Performed By: #### B MP #### [facility] [address] [place] [address] Dr. Deepak Greenfield EGFR-NON AF ITALIAN >60 Normal >=60 [facility] Comment on above: Performed By: #### B MP #### [facility] [address] [address] [address] Deepak Greenfield Globulin (S) [Mass/Vol] 4.2 g/dL Normal [facility] Comment on above: Performed By: #### B MP #### [facility] [address] [address] [address] Deepak Greenfield Glucose [Mass/Vol] 105 mg/dL Normal 74-106 [facility] Comment on above: Performed By: #### B MP #### [facility] [address] [place] [address] Dr. Deepak Greenfield Potassium [Moles/Vol] 3.9 mmol/L Normal 3.5-5.1 [facility] Comment on above: Performed By: #### B MP #### [facility] [address] [place] [address] Dr. Deepak Greenfield Protein [Mass/Vol] 7.5 g/dL Normal 6.4-8.2 [facility] Comment on above: Performed By: #### B MP #### [facility] [address] [place], [place] [address] Dr. Deepak Greenfield Sodium [Moles/Vol] 136 mmol/L Normal 136-145 [facility] Comment on above: Performed By: #### B MP #### [facility] [address] [place], [place] [address] Dr. Deepak Greenfield Urea nitrogen [Mass/Vol] 13.0 mg/dL Normal 7.0-18.0 [facility] Comment on above: Performed By: #### B MP #### [facility] [address] [place], [place] [address] Dr. Deepak Greenfield Urea nitrogen/Creatinine [Mass ratio] 20.0 mg/mg Normal [facility] Comment on above: Performed By: #### B MP #### [facility] [address] [address] [address] Deepak Greenfield XR CHEST 1 Von [...] by: ANICETO GARCIA Date: 2022-07-26 12:27 Normal [facility] Consent for Treatmenton Consent for Treatment [id number]:127 Normal [facility] Physician Orderon 07-23-2022 Physician Order [id number] 1.00CD:127 Normal [facility] XR Adult Swallowing Function w/ [...] mGy = 11.70 DAP = 270.92 Normal [facility] AMMONIAon 06-03-2022 Ammonia (P) [Moles/Vol] 112 umol/L Critically high - The [facility] Comment on above: Performed By: #### A MM #### [facility] [address] [place] [address] Dr. Deepak Greenfield DEPAKENE/ VALPROIC ACIDon DEPAKENE 94.0 ug/ml Normal 50.0-100.0 [facility] Comment on above: Performed By: #### C BC #### [facility] [address] [place] [address] Dr. Deepak Greenfield LIVER PROFILEon 06-03-2022 Albumin [Mass/Vol] 3.6 g/dL Normal 3.4-5.0 [facility] Comment on above: Performed By: #### C BC #### [facility] [address] [place] [address] Dr. Deepak Greenfield Albumin/Globulin [Mass ratio] 0.9 {ratio} Normal [facility] Comment on above: Performed By: #### C BC #### [facility] [address] [address] [address] Deepak Greenfield ALP [Catalytic activity/Vol] 55 U/L Normal 46-116 [facility] Comment on above: Performed By: #### C BC #### [facility] [address] [address] [address] Deepak Greenfield ALT [Catalytic activity/Vol] 76 U/L Critically high 16-63 [facility] Comment on above: Performed By: #### C BC #### [facility] [address] [address] [address] Deepak Greenfield AST [Catalytic activity/Vol] 51 U/L Critically high 15-37 [facility] Comment on above: Performed By: #### C BC #### [facility] [address] [place] [address] Dr. Deepak Greenfield BILI, CONJUGATED 0.1 mg/dL Normal 0.0-0.2 [facility] [place] Comment on above: Performed By: #### C BC #### [facility] [address] [place] [address] Dr. Deepak Greenfield Bilirubin [Mass/Vol] 0.4 mg/dL Normal 0.2-1.0 [facility] Comment on above: Performed By: #### C BC #### [facility] [address] [place] [address] Dr. Deepak Greenfield Globulin (S) [Mass/Vol] 4.1 g/dL Normal [facility] Comment on above: Performed By: #### C BC #### [facility] [address] [place] [address] Dr. Deepak Greenfield Protein [Mass/Vol] 7.7 g/dL Normal 6.4-8.2 [facility] Comment on above: Performed By: #### C BC #### [facility] [address] [place] [address] Dr. Deepak Greenfield AMMONIAon 04-22-2022 Ammonia (P) [Moles/Vol] 108 umol/L Critically high 11-32 [facility] Comment on above: Performed By: #### B MP #### [facility] [address] [place] [address] Dr. Deepak Greenfield CBC AUTO DIFFon 04-22-2022 BASO # 0.0 103/ul Normal 0.0-0.1 [facility] Comment on above: Performed By: #### C BC #### [facility] [address] [place] [address] Dr. Deepak Greenfield Basophils/100 WBC (Bld) 0.5 % Normal 0.2-2.0 [facility] Comment on above: Performed By: #### C BC #### [facility] [address] [place] [address] Dr. Deepak Greenfield EO # 0.1 103/ul Normal 0.0-0.7 [facility] Comment on above: Performed By: #### C BC #### [facility] [address] [place] [address] Dr. Deeapk Greenfield Eosinophils/100 WBC (Bld) 1.4 % Normal 0.9-7.0 [facility] Comment on above: Performed By: #### C BC #### [facility] [address] [place] [address] Dr. Deepak Greenfield Erythrocyte distribution width (RBC) [Ratio] 14.2 % Normal 11.0-15.0 [facility] Comment on above: Performed By: #### C BC #### [facility] [address] [place] [address] Dr. Deepak Greenfield Hematocrit (Bld) [Volume fraction] 37.0 % Critically low 42.0-54.0 [facility] Comment on above: Performed By: #### C BC #### [facility] [address] [place] [address] Dr. Deepak Greenfield Hemoglobin (Bld) [Mass/Vol] 12.3 g/dL Critically low 14.0-18.0 [facility] Comment on above: Performed By: #### C BC #### [facility] [address] [place] [address] Dr. Deepak Greenfield IG # 0.00 10e3/ul Normal 0.00-0.03 [facility] Comment on above: Performed By: #### C BC #### [facility] [address] [place] [address] Dr. Deepak Greenfield IG % 0.0 % Normal 0.0-0.5 [facility] Comment on above: Performed By: #### C BC #### [facility] [address] [place] [address] Dr. Deepak Greenfield LYMPH # 3.3 103/ul Normal 1.2-3.8 [facility] Comment on above: Performed By: #### C BC #### [facility] [address] [place] [address] Dr. Deepak Greenfield Lymphocytes/100 WBC (Bld) 51.5 % Normal 20.5-60.0 [facility] Comment on above: Performed By: #### C BC #### [facility] [address] [place] [address] Dr. Deepak Greenfield MANUAL DIFF REQ NO Normal [facility] Comment on above: Performed By: #### C BC #### [facility] [address] [place] [address] Dr. Deepak Greenfield MCH (RBC) [Entitic mass] 32.2 pg Normal 25.9-34.0 [facility] Comment on above: Performed By: #### C BC #### [facility] [address] [place] [address] Dr. Deepak Greenfield MCHC (RBC) [Mass/Vol] 33.2 g/dL Normal 29.9-35.2 [facility] Comment on above: Performed By: #### C BC #### [facility] [address] [place] [address] Dr. Deepak Greenfield MCV (RBC) [Entitic vol] 96.9 fL Critically high 80.0-94.0 [facility] Comment on above: Performed By: #### C BC #### [facility] [address] [place] [address] Dr. Deepak Greenfield MONO # 0.6 103/ul Normal 0.3-0.8 [facility] Comment on above: Performed By: #### C BC #### [facility] [address] [place] [address] Dr. Deepak Greenfield Monocytes/100 WBC (Bld) 9.7 % Normal 1.7-12.0 [facility] Comment on above: Performed By: #### C BC #### [facility] [address] [place] [address] Dr. Deepak Greenfield NEUT # 2.4 103/ul Normal 1.4-6.5 [facility] Comment on above: Performed By: #### C BC #### [facility] [address] [place] [address] Dr. Deepak Greenfield Neutrophils/100 WBC (Bld) 36.9 % Critically low 43.0-75.0 [facility] Comment on above: Performed By: #### C BC #### [facility] [address] [place] [address] Dr. Deepak Greenfield Platelet mean volume (Bld) [Entitic vol] 10.2 fL Normal 9.5-13.5 [facility] Comment on above: Performed By: #### C BC #### [facility] [address] [place] [address] Dr. Deepak Greenfield PLT 248 103/ul Normal 150-450 [facility] Comment on above: Performed By: #### C BC #### [facility] [address] [place] [address] Dr. Deepak Greenfield RBC 3.82 106/ul Critically low 4.70-6.10 [facility] Comment on above: Performed By: #### C BC #### [facility] [address] [place] [address] Dr. Deepak Greenfield WBC 6.5 103/ul Normal 4.0-11.0 [facility] Comment on above: Performed By: #### C BC #### [facility] [address] [place] [address] Dr. Deepak Greenfield FERRITINon 04-22-2022 Ferritin [Mass/Vol] 152.0 ng/mL Normal 26.0-388.0 [facility] Comment on above: Performed By: #### M G, CMP #### [facility] [address] [place] [address] Dr. Deepak Greenfield IRONon 04-22-2022 Iron [Mass/Vol] 136.0 ug/dL Normal 65.0-175.0 [facility] Comment on above: Performed By: #### M G, CMP #### [facility] [address] [place] [address] Dr. Deepak Greenfield MAGNESIUMon 04-22-2022 Magnesium [Mass/Vol] 1.6 mg/dL Critically low 1.8-2.4 [facility] Comment on above: Performed By: #### I NFLUAB #### [facility] [address] [place] [address] Dr. Deepak Greenfield VITAMIN B12on 04-22-2022 Cobalamin (Vitamin B12) [Mass/Vol] 545.0 pg/mL Normal 193.0-986.0 [facility] Comment on above: Performed By: #### Karishma House, CMP #### [facility] [address] [place] [address] Dr. Deepak Greenfield CBC AUTO DIFFon 03-19-2022 BASO # 0.0 103/ul Normal 0.0-0.1 [facility] Comment on above: Performed By: #### Karishma House, CMP #### [facility] [address] [place] [address] Dr. Deepak Greenfield Basophils/100 WBC (Bld) 0.5 % Normal 0.2-2.0 [facility] Comment on above: Performed By: #### Karishma House, CMP #### [facility] [address] [place] [address] Dr. Deepak Greenfield EO # 0.2 103/ul Normal 0.0-0.7 [facility] Comment on above: Performed By: #### M G, CMP #### [facility] [address] [place] [address] Dr. Deepak Greenfield Eosinophils/100 WBC (Bld) 2.0 % Normal 0.9-7.0 [facility] Comment on above: Performed By: #### M Lacy, CMP #### [facility] [address] [place] [address] Dr. Deepak Greenfield Erythrocyte distribution width (RBC) [Ratio] 13.5 % Normal 11.0-15.0 [facility] Comment on above: Performed By: #### M G, CMP #### [facility] [address] [place] [address] Dr. Deepak Greenfield Hematocrit (Bld) [Volume fraction] 38.5 % Critically low 42.0-54.0 [facility] Comment on above: Performed By: #### M G, CMP #### [facility] [address] [place] [address] Dr. Deepak Greenfield Hemoglobin (Bld) [Mass/Vol] 12.6 g/dL Critically low 14.0-18.0 [facility] Comment on above: Performed By: #### M G, CMP #### [facility] [address] [place] [address] Dr. Deepka Greenfield IG # 0.02 10e3/ul Normal 0.00-0.03 [facility] Comment on above: Performed By: #### M G, CMP #### [facility] [address] [place] [address] Dr. Deepak Greenfield IG % 0.2 % Normal 0.0-0.5 [facility] Comment on above: Performed By: #### M G, CMP #### [facility] [address] [place] [address] Dr. Deepak Greenfield LYMPH # 3.1 103/ul Normal 1.2-3.8 [facility] Comment on above: Performed By: #### M G, CMP #### [facility] [address] [place] [address] Dr. Deepak Greenfield Lymphocytes/100 WBC (Bld) 36.2 % Normal 20.5-60.0 [facility] Comment on above: Performed By: #### M G, CMP #### [facility] [address] [place] [address] Dr. Deepak Greenfield MANUAL DIFF REQ NO Normal [facility] Comment on above: Performed By: #### M G, CMP #### [facility] [address] [place], [place] [id number] Dr. Deepak Greenfield MCH (RBC) [Entitic mass] 32.1 pg Normal 25.9-34.0 [facility] Comment on above: Performed By: #### M G, CMP #### [facility] [address] [place] [address] Dr. Deepak Greenfield MCHC (RBC) [Mass/Vol] 32.7 g/dL Normal 29.9-35.2 [facility] Comment on above: Performed By: #### M G, CMP #### [facility] [address] [place] [address] Dr. Deepak Greenfield MCV (RBC) [Entitic vol] 98.0 fL Critically high 80.0-94.0 [facility] Comment on above: Performed By: #### M G, CMP #### [facility] [address] [place] [address] Dr. Deepak Greenfield MONO # 0.9 103/ul Critically high 0.3-0.8 [facility] Comment on above: Performed By: #### M G, CMP #### [facility] [address] [place] [address] Dr. Deepak Greenfield Monocytes/100 WBC (Bld) 10.6 % Normal 1.7-12.0 [facility] Comment on above: Performed By: #### M G, CMP #### [facility] [address] [place] [address] Dr. Deepak Greenfield NEUT # 4.3 103/ul Normal 1.4-6.5 [facility] Comment on above: Performed By: #### M G, CMP #### [facility] [address] [place] [address] Dr. Deepak Greenfield Neutrophils/100 WBC (Bld) 50.5 % Normal 43.0-75.0 [facility] Comment on above: Performed By: #### M G, CMP #### [facility] [address] [place] [address] Dr. Deepak Greenfield Platelet mean volume (Bld) [Entitic vol] 9.9 fL Normal 9.5-13.5 [facility] Comment on above: Performed By: #### M G, CMP #### [facility] [address] [address] [address] Deepak Greenfield PLT 263 103/ul Normal 150-450 [facility] Comment on above: Performed By: #### M G, CMP #### [facility] [address] [address] [address] Deepak Greenfield RBC 3.93 106/ul Critically low 4.70-6.10 [facility] Comment on above: Performed By: #### M G, CMP #### [facility] [address] [address] [address] Deepak Greenfield WBC 8.6 103/ul Normal 4.0-11.0 [facility] Comment on above: Performed By: #### M G, CMP #### [facility] [address] [place] [address] Dr. Deepak Greenfield MAGNESIUMon 03-19-2022 Magnesium [Mass/Vol] 1.5 mg/dL Critically low 1.8-2.4 [facility] Comment on above: Performed By: #### M G, CMP #### [facility] [address] [address] [address] Deepak Greenfield PROF 14(COMP METB)on 022 Albumin [Mass/Vol] 3.4 g/dL Normal 3.4-5.0 [facility] Comment on above: Performed By: #### M G, CMP #### [facility] [address] [place] [address] Dr. Deepak Greenfield Albumin/Globulin [Mass ratio] 0.9 {ratio} Normal [facility] Comment on above: Performed By: #### M G, CMP #### [facility] [address] [address] [address] Deepak Greenfield ALP [Catalytic activity/Vol] 47 U/L Normal 46-116 [facility] Comment on above: Performed By: #### M G, CMP #### [facility] [address] [address] [address] Deepak Greenfield ALT [Catalytic activity/Vol] 48 U/L Normal 16-63 [facility] Comment on above: Performed By: #### M G, CMP #### [facility] [address] [address] [address] Deepak Greenfield Anion gap [Moles/Vol] 9.5 mmol/L Normal [facility] Comment on above: Performed By: #### M G, CMP #### [facility] [address] [address] [address] Deepak Greenfield AST [Catalytic activity/Vol] 30 U/L Normal 15-37 [facility] Comment on above: Performed By: #### M G, CMP #### [facility] [address] [address] [address] Deepak Greenfield Bilirubin [Mass/Vol] 0.2 mg/dL Normal 0.2-1.0 [facility] Comment on above: Performed By: #### M G, CMP #### [facility] [address] [address] [address] Deepak Greenfield Calcium [Mass/Vol] 8.7 mg/dL Normal 8.5-10.1 [facility] Comment on above: Performed By: #### M G, CMP #### [facility] [address] [address] [address] Deepak Greenfield Chloride [Moles/Vol] 105 mmol/L Normal 98-107 [facility] Comment on above: Performed By: #### M G, CMP #### [facility] [address] [address] [address] Deepak Greenfield CO2 [Moles/Vol] 32.6 mmol/L Critically high 21.0-32.0 [facility] Comment on above: Performed By: #### M G, CMP #### [facility] [address] [address] [address] Deepak Greenfield Creatinine [Mass/Vol] 0.70 mg/dL Normal 0.70-1.30 [facility] Comment on above: Performed By: #### M G, CMP #### [facility] [address] [address] [address] Deepak Greenfield EGFR-AF ITALIAN >60 Normal >=60 [facility] [place] Comment on above: Performed By: #### M G, CMP #### [facility] [address] [address] [address] Deepak Greenfield EGFR-NON AF ITALIAN >60 Normal >=60 [facility] Comment on above: Performed By: #### M G, CMP #### [facility] [address] [address] [address] Deepak Greenfield Globulin (S) [Mass/Vol] 3.8 g/dL Normal [facility] Comment on above: Performed By: #### M G, CMP #### [facility] [address] [address] [address] Deepak Greenfield Glucose [Mass/Vol] 98 mg/dL Normal 74-106 [facility] Comment on above: Performed By: #### M G, CMP #### [facility] [address] [address] [address] Deepak Greenfield Potassium [Moles/Vol] 4.1 mmol/L Normal 3.5-5.1 [facility] Comment on above: Performed By: #### M G, CMP #### [facility] [address] [address] [address] Deepak Greenfield Protein [Mass/Vol] 7.2 g/dL Normal 6.4-8.2 [facility] Comment on above: Performed By: #### M G, CMP #### [facility] [address] [address] [address] Deepak Greenfield Sodium [Moles/Vol] 143 mmol/L Normal 136-145 [facility] Comment on above: Performed By: #### M G, CMP #### [facility] [address] [address] [address] Deepak Greenfield Urea nitrogen [Mass/Vol] 10.0 mg/dL Normal 7.0-18.0 [facility] Comment on above: Performed By: #### M G, CMP #### [facility] [address] [address] [address] Deepak Greenfield Urea nitrogen/Creatinine [Mass ratio] 14.3 mg/mg Normal [facility] Comment on above: Performed By: #### M G, CMP #### [facility] [address] [place] [address] Dr. Deepak Greenfield VITAMIN D 25 OHon 03-19-2022 VIT D 25-OH 67.5 ng/mL Normal [facility] Comment on above: Performed By: #### M Lacy, CMP #### [facility] [address] [place] [address] Dr. Deepak Greenfield VIT D RANGES SEE BELOW Normal [facility] Comment on above: Result Comment: <20 ng/mL Vit D deficient 20 - <30 ng/mL Vit D insufficient 30 - 100 ng/mL Vit D sufficient >100 ng/mL Potential Toxicity Performed By: #### M Lacy, CMP #### [facility] [address] [place] [address] Dr. Deepak Greenfield AMMONIAon 03-10-2022 Ammonia (P) [Moles/Vol] 36 umol/L Critically high [facility] Comment on above: Performed By: #### C BC #### [facility] [address] [place] [address] Dr. Deepak Greenfield DEPAKENE/ VALPROIC ACIDon DEPAKENE 93.5 ug/ml Normal 50.0-100.0 [facility] Comment on above: Performed By: #### B MP #### [facility] [address] [place] [address] Dr. Deepak Greenfield BNPon 01-24-2022 Natriuretic peptide B (Bld) [Mass/Vol] 183.0 pg/mL Normal <=450.0 [facility] Comment on above: Performed By: #### M G, CMP #### [facility] [address] [place] [address] Dr. Deepak Greenfield CBC AUTO DIFFon 01-24-2022 BASO # 0.0 103/ul Normal 0.0-0.1 [facility] Comment on above: Performed By: #### C VDTBH #### [facility] [address] [place] [address] Dr. Deepak Greenfield Basophils/100 WBC (Bld) 0.3 % Normal 0.2-2.0 [facility] Comment on above: Performed By: #### C VDTBH #### [facility] [address] [place] [address] Dr. Deepak Greenfield EO # 0.1 103/ul Normal 0.0-0.7 [facility] Comment on above: Performed By: #### C VDTBH #### [facility] [address] [place] [address] Dr. Deepak Greenfield Eosinophils/100 WBC (Bld) 0.4 % Critically low 0.9-7.0 [facility] Comment on above: Performed By: #### C VDTBH #### [facility] [address] [place] [address] Dr. Deepak Greenfield Erythrocyte distribution width (RBC) [Ratio] 13.6 % Normal 11.0-15.0 [facility] Comment on above: Performed By: #### C VDTBH #### [facility] [address] [place] [address] Dr. Deepak Greenfield Hematocrit (Bld) [Volume fraction] 39.3 % Critically low 42.0-54.0 [facility] Comment on above: Performed By: #### C VDTBH #### [facility] [address] [place] [address] Dr. Deepak Greenfield Hemoglobin (Bld) [Mass/Vol] 12.6 g/dL Critically low 14.0-18.0 [facility] Comment on above: Performed By: #### C VDTBH #### [facility] [address] [place] [address] Dr. Deepak Greenfield IG # 0.04 10e3/ul Critically high 0.00-0.03 [facility] Comment on above: Performed By: #### C VDTBH #### [facility] [address] [place] [address] Dr. Deepak Greenfield IG % 0.3 % Normal 0.0-0.5 [facility] Comment on above: Performed By: #### C VDTBH #### [facility] [address] [place] [address] Dr. Deepak Greenfield LYMPH # 2.4 103/ul Normal 1.2-3.8 [facility] Comment on above: Performed By: #### C VDTBH #### [facility] [address] [place] [address] Dr. Deepak Greenfield Lymphocytes/100 WBC (Bld) 16.6 % Critically low 20.5-60.0 [facility] Comment on above: Performed By: #### C VDTBH #### [facility] [address] [place] [address] Dr. Deepak Greenfield MANUAL DIFF REQ NO Normal [facility] Comment on above: Performed By: #### C VDTBH #### [facility] [address] [place] [address] Dr. Deepak Greenfield MCH (RBC) [Entitic mass] 32.0 pg Normal 25.9-34.0 [facility] Comment on above: Performed By: #### C VDTBH #### [facility] [address] [place] [address] Dr. Deepak Greenfield MCHC (RBC) [Mass/Vol] 32.1 g/dL Normal 29.9-35.2 [facility] Comment on above: Performed By: #### C VDTBH #### [facility] [address] [place] [address] Dr. Deepak Greenfield MCV (RBC) [Entitic vol] 99.7 fL Critically high 80.0-94.0 [facility] Comment on above: Performed By: #### C VDTBH #### [facility] [address] [place] [address] Dr. Deepak Greenfield MONO # 1.4 103/ul Critically high 0.3-0.8 [facility] Comment on above: Performed By: #### C VDTBH #### [facility] [address] [place] [address] Dr. Deepak Greenfield Monocytes/100 WBC (Bld) 9.8 % Normal 1.7-12.0 [facility] Comment on above: Performed By: #### C VDTBH #### [facility] [address] [address] [address] Deepak Greenfield NEUT # 10.7 103/ul Critically high 1.4-6.5 [facility] Comment on above: Performed By: #### C VDTBH #### [facility] [address] [place] [address] Dr. Deepak Greenfield Neutrophils/100 WBC (Bld) 72.6 % Normal 43.0-75.0 [facility] Comment on above: Performed By: #### C VDTBH #### [facility] [address] [place] [address] Dr. Deepak Greenfield Platelet mean volume (Bld) [Entitic vol] 10.4 fL Normal 9.5-13.5 [facility] Comment on above: Performed By: #### C VDTBH #### [facility] [address] [place] [address] Dr. Deepak Greenfield PLT 280 103/ul Normal 150-450 [facility] Comment on above: Performed By: #### C VDTBH #### [facility] [address] [place] [address] Dr. Deepak Greenfield RBC 3.94 106/ul Critically low 4.70-6.10 [facility] Comment on above: Performed By: #### C VDTBH #### [facility] [address] [place] [address] Dr. Deepak Greenfield WBC 14.7 103/ul Critically high 4.0-11.0 [facility] Comment on above: Performed By: #### C VDTBH #### [facility] [address] [place] [address] Dr. Deepak Greenfield CULTURE BLOODon 01-24-2022 Microscopic examination of blood, culture Culture Observations: No growth at 5 days. Normal [facility] Comment on above: Performed By: #### C BC #### [facility] [address] [place] [address] Dr. Deepak Greenfield Microscopic examination of blood, culture Culture Observations: No growth at 5 days. Normal [facility] Comment on above: Performed By: #### C BC #### [facility] [address] [place] [address] Dr. Deepak Greenfield Covid-19 PCR (CVDTB)on SARS-CoV-2 (COVID-19) RNA CINDY+probe Ql (Unsp spec) Not detected Normal NOT DETECTED [facility] Comment on above: Result Comment: [...] for this test is supported by the [place] of [employer] and Human Service's declaration that [...] used). Performed By: #### I NFLUAB #### [facility] [address] [place] [address] Dr. Deepak Greenfield LACTATE/LACTIC ACIDon 2021 Lactate [Moles/Vol] 1.7 mmol/L Normal 0.4-1.9 [facility] Comment on above: Performed By: #### M G, CMP #### [facility] [address] [place] [address] Dr. Deepak Greenfield PROF 14(COMP METB)on 022 Albumin [Mass/Vol] 3.2 g/dL Critically low 3.4-5.0 [facility] Comment on above: Performed By: #### M G, CMP #### [facility] [address] [place] [address] Dr. Deepak Greenfield Albumin/Globulin [Mass ratio] 0.7 {ratio} Normal [facility] Comment on above: Performed By: #### M Lacy, CMP #### [facility] [address] [address] [address] Deepak Greenfield ALP [Catalytic activity/Vol] 49 U/L Normal 46-116 [facility] Comment on above: Performed By: #### M G, CMP #### [facility] [address] [address] [address] Deepak Greenfield ALT [Catalytic activity/Vol] 41 U/L Normal 16-63 [facility] Comment on above: Performed By: #### M G, CMP #### [facility] [address] [address] [address] Deepak Greenfield Anion gap [Moles/Vol] 11.1 mmol/L Normal [facility] Comment on above: Performed By: #### M G, CMP #### [facility] [address] [place] [address] Dr. Deepak Greenfield AST [Catalytic activity/Vol] 29 U/L Normal 15-37 [facility] Comment on above: Performed By: #### M G, CMP #### [facility] [address] [address] [address] Deepak Greenfield Bilirubin [Mass/Vol] 0.5 mg/dL Normal 0.2-1.0 [facility] Comment on above: Performed By: #### M G, CMP #### [facility] [address] [place] [address] Dr. Deepak Greenfield Calcium [Mass/Vol] 9.1 mg/dL Normal 8.5-10.1 [facility] Comment on above: Performed By: #### M G, CMP #### [facility] [address] [place] [address] Dr. Deepak Greenfield Chloride [Moles/Vol] 108 mmol/L Critically high 98-107 [facility] Comment on above: Performed By: #### M G, CMP #### [facility] [address] [address] [address] Deepak Greenfield CO2 [Moles/Vol] 25.7 mmol/L Normal 21.0-32.0 [facility] [place] Comment on above: Performed By: #### M G, CMP #### [facility] [address] [place] [address] Dr. Deepak Greenfield Creatinine [Mass/Vol] 0.89 mg/dL Normal 0.70-1.30 [facility] Comment on above: Performed By: #### M G, CMP #### [facility] [address] [place] [address] Dr. Deepak Greenfield EGFR-AF ITALIAN >60 Normal >=60 [facility] [place] Comment on above: Performed By: #### M G, CMP #### [facility] [address] [place] [address] Dr. Deepak Greenfield EGFR-NON AF ITALIAN >60 Normal >=60 [facility] Comment on above: Performed By: #### M G, CMP #### [facility] [address] [place] [address] Dr. Deepak Greenfield Globulin (S) [Mass/Vol] 4.5 g/dL Normal [facility] Comment on above: Performed By: #### M G, CMP #### [facility] [address] [place] [address] Dr. Deepak Greenfield Glucose [Mass/Vol] 178 mg/dL Critically high 74-106 [facility] Comment on above: Performed By: #### M G, CMP #### [facility] [address] [place] [address] Dr. Deepak Greenfield Potassium [Moles/Vol] 3.8 mmol/L Normal 3.5-5.1 [facility] Comment on above: Performed By: #### M G, CMP #### [facility] [address] [place] [address] Dr. Deepak Greenfield Protein [Mass/Vol] 7.7 g/dL Normal 6.4-8.2 [facility] Comment on above: Performed By: #### M G, CMP #### [facility] [address] [place] [address] Dr. Deepak Greenfield Sodium [Moles/Vol] 141 mmol/L Normal 136-145 [facility] Comment on above: Performed By: #### M G, CMP #### [facility] [address] [place] [address] Dr. Deepak Greenfield Urea nitrogen [Mass/Vol] 16.0 mg/dL Normal 7.0-18.0 [facility] Comment on above: Performed By: #### M Lacy, CMP #### [facility] [address] [address] [address] Deepak Greenfield Urea nitrogen/Creatinine [Mass ratio] 18.0 mg/mg Normal [facility] Comment on above: Performed By: #### Karishma House, CMP #### [facility] [address] [address] [address] Deepak Greenfield TROPONIN, HIGH SENSITIVITYon 01-24-2022 HSTROP 6.4 pg/mL Normal 4.0-76.1 [facility] Comment on above: Result Comment: CUT- OFF POINTS HAVE BEEN ESTABLISHED BASED ON THE FOURTH UNIVERSAL DEFINITIONS OF MYOCARDIAL INFARCTION. THE UPPER REFERENCE LIMIT (URL) OF TROPONIN, DEFINED THE 99TH PERCENTILE OF cTnI DISTRIBUTION IN A REFERENCE POPULATION, HAS BEEN CONFIRMED THE DECISION THRESHOLD FOR OK DIAGNOSIS. Performed By: #### Karishma House, CMP #### [facility] [address] [place] [address] Dr. Deepak Greenfield XR CHEST 1 Von [...] ANICETO CROCKER Date: 2022-01-24 15:28 Normal [facility] UA RANDOM W/MICROSCOPICon BACTERIA NONE SEEN Normal NONE SEEN The [facility] Comment on above: Performed By: #### C VDTBH #### [facility] [address] [place] [address] Dr. Deepak Greenfield Bilirubin Ql (U) Negative Normal NEGATIVE [facility] Comment on above: Performed By: #### C VDTBH #### [facility] [address] [place] [address] Dr. Deepak Greenfield CAST NONE SEEN Normal NONE SEEN [facility] Comment on above: Performed By: #### C VDTBH #### [facility] [address] [place] [address] Dr. Deepak Greenfield Clarity (U) CLEAR Normal CLEAR [facility] Comment on above: Performed By: #### C VDTBH #### [facility] [address] [place] [address] Dr. Deepak Greenfield Color (U) YELLOW Normal YELLOW [facility] Comment on above: Performed By: #### C VDTBH #### [facility] [address] [place] [address] Dr. Deepak Greenfield Crystals LM Nom (Urine sed) NONE SEEN Normal NONE SEEN [facility] Comment on above: Performed By: #### C VDTBH #### [facility] [address] [place] [address] Dr. Deepak Greenfield Epithelial cells LM Ql (Urine sed) RARE Normal NONE SEEN /RARE The [facility] Comment on above: Performed By: #### C VDTBH #### [facility] [address] [place] [address] Dr. Deepak Greenfield Glucose Ql (U) Negative Normal NEGATIVE [facility] Comment on above: Performed By: #### C VDTBH #### [facility] [address] [place] [address] Dr. Deepak Greenfield Hemoglobin Ql (U) Negative Normal NEGATIVE [facility] Comment on above: Performed By: #### C VDTBH #### [facility] [address] [place] [address] Dr. Deepak Greenfield Ketones Ql (U) 15 mg/dl Abnormal NEGATIVE [facility] Comment on above: Performed By: #### C VDTBH #### [facility] [address] [place] [address] Dr. Deepak Greenfield LEUKOCYTES Negative Normal NEGATIVE [facility] Comment on above: Performed By: #### C VDTBH #### [facility] [address] [place] [address] Dr. Deepak Greenfield MUCOUS NONE SEEN Normal NONE SEEN [facility] Comment on above: Performed By: #### C VDTBH #### [facility] [address] [place] [address] Dr. Depeak Greenfield Nitrite Ql (U) Negative Normal NEGATIVE [facility] Comment on above: Performed By: #### C VDTBH #### [facility] [address] [place] [address] Dr. Deepak Greenfield pH (U) 6.0 [pH] Normal 5-9 [facility] Comment on above: Performed By: #### C VDTBH #### [facility] [address] [place] [address] Dr. Deepak Greenfield RBC 0-2 Normal 0-2 [facility] Comment on above: Performed By: #### C VDTBH #### [facility] [address] [place] [address] Dr. Deepak Greenfield SPEC GRAVITY 1.020 Normal 1.005-<=1.025 [facility] Comment on above: Performed By: #### C VDTBH #### [facility] [address] [place] [address] Dr. Deepak Greenfield UA PROTEIN Negative Normal NEGATIVE/ TRACE [facility] Comment on above: Performed By: #### C VDTBH #### [facility] [address] [place] [address] Dr. Deepak Greenfield Urobilinogen Qn (U) 0.2 {Ottoniel'U}/dL Normal 0.2 - 1. 0 [facility] Comment on above: Performed By: #### C VDTBH #### [facility] [address] [place] [address] Dr. Deepak Greenfield WBC NONE SEEN Normal NONE SEEN The [facility] Comment on above: Performed By: #### C VDTBH #### [facility] [address] [place] [address] Dr. Deepak Greenfield ALBUMINon 01-12-2022 Albumin [Mass/Vol] 3.4 g/dL Normal 3.4-5.0 [facility] Comment on above: Performed By: #### C VDTBH #### [facility] [address] [place] [address] Dr. Deepak Greenfield ALKALINE PHOSPHAon ALP [Catalytic activity/Vol] 46 U/L Normal 46-116 [facility] Comment on above: Performed By: #### C VDTBH #### [facility] [address] [place] [address] Dr. Deepak Greenfield AMMONIAon 01-12-2022 Ammonia (P) [Moles/Vol] 93 umol/L Critically high 11-32 [facility] Comment on above: Performed By: #### I NFLUAB #### [facility] [address] [place] [address] Dr. Deepak Greenfield BILIRUBIN CONJUGATED (DIRECT )on 01-12-2022 BILI, CONJUGATED 0.1 mg/dL Normal 0.0-0.2 [facility] Comment on above: Performed By: #### C VDTBH #### [facility] [address] [place] [address] Dr. Deepak Greenfiled BILIRUBIN TOTALon 01-12-2022 Bilirubin [Mass/Vol] 0.4 mg/dL Normal 0.2-1.0 [facility] Comment on above: Performed By: #### C VDTBH #### [facility] [address] [place] [address] Dr. Deepak Greenfield CBC AUTO DIFFon 01-12-2022 BASO # 0.0 103/ul Normal 0.0-0.1 [facility] Comment on above: Performed By: #### M G, CMP #### [facility] [address] [place] [address] Dr. Deepak Greenfield Basophils/100 WBC (Bld) 0.3 % Normal 0.2-2.0 [facility] Comment on above: Performed By: #### M G, CMP #### [facility] [address] [place] [address] Dr. Deepak Greenfield EO # 0.1 103/ul Normal 0.0-0.7 The [facility] Comment on above: Performed By: #### M G, CMP #### [facility] [address] [place] [address] Dr. Deepak Greenfield Eosinophils/100 WBC (Bld) 1.3 % Normal 0.9-7.0 [facility] Comment on above: Performed By: #### M G, CMP #### [facility] [address] [place] [address] Dr. Deepak Greenfield Erythrocyte distribution width (RBC) [Ratio] 14.2 % Normal 11.0-15.0 [facility] Comment on above: Performed By: #### M G, CMP #### [facility] [address] [place] [address] Dr. Deepak Greenfield Hematocrit (Bld) [Volume fraction] 40.4 % Critically low 42.0-54.0 [facility] Comment on above: Performed By: #### M G, CMP #### [facility] [address] [place] [address] Dr. Deepak Greenfield Hemoglobin (Bld) [Mass/Vol] 13.1 g/dL Critically low 14.0-18.0 [facility] Comment on above: Performed By: #### M G, CMP #### [facility] [address] [place] [address] Dr. Deepak Greenfield IG # 0.01 10e3/ul Normal 0.00-0.03 [facility] Comment on above: Performed By: #### M G, CMP #### [facility] [address] [place] [address] Dr. Deepak Greenfield IG % 0.1 % Normal 0.0-0.5 [facility] Comment on above: Performed By: #### M G, CMP #### [facility] [address] [place] [address] Dr. Deepak Greenfield LYMPH # 3.3 103/ul Normal 1.2-3.8 The [facility] Comment on above: Performed By: #### M G, CMP #### [facility] [address] [place] [address] Dr. Deepak Greenfield Lymphocytes/100 WBC (Bld) 42.3 % Normal 20.5-60.0 [facility] Comment on above: Performed By: #### M G, CMP #### [facility] [address] [place] [address] Dr. Deepak Greenfield MANUAL DIFF REQ NO Normal [facility] Comment on above: Performed By: #### M G, CMP #### [facility] [address] [place] [address] Dr. Deepak Greenfield MCH (RBC) [Entitic mass] 32.4 pg Normal 25.9-34.0 [facility] Comment on above: Performed By: #### M G, CMP #### [facility] [address] [place] [address] Dr. Deepak Greenfield MCHC (RBC) [Mass/Vol] 32.4 g/dL Normal 29.9-35.2 [facility] Comment on above: Performed By: #### M G, CMP #### [facility] [address] [place] [address] Dr. Deepak Greenfield MCV (RBC) [Entitic vol] 100.0 fL Critically high 80.0-94.0 [facility] Comment on above: Performed By: #### M G, CMP #### [facility] [address] [place] [address] Dr. Deepak Greenfield MONO # 0.6 103/ul Normal 0.3-0.8 [facility] Comment on above: Performed By: #### M G, CMP #### [facility] [address] [place] [address] Dr. Deepak Greenfield Monocytes/100 WBC (Bld) 7.6 % Normal 1.7-12.0 [facility] Comment on above: Performed By: #### M G, CMP #### [facility] [address] [place] [address] Dr. Deepak Greenfield NEUT # 3.8 103/ul Normal 1.4-6.5 [facility] Comment on above: Performed By: #### M G, CMP #### [facility] [address] [place] [address] Dr. Deepak Greenfield Neutrophils/100 WBC (Bld) 48.4 % Normal 43.0-75.0 [facility] Comment on above: Performed By: #### M G, CMP #### [facility] [address] [place] [address] Dr. Deepak Greenfield Platelet mean volume (Bld) [Entitic vol] 9.6 fL Normal 9.5-13.5 [facility] Comment on above: Performed By: #### M G, CMP #### [facility] [address] [place] [address] Dr. Deepak Greenfield PLT 315 103/ul Normal 150-450 [facility] Comment on above: Performed By: #### M G, CMP #### [facility] [address] [place] [address] Dr. Deepak Greenfield RBC 4.04 106/ul Critically low 4.70-6.10 [facility] Comment on above: Performed By: #### M G, CMP #### [facility] [address] [place] [address] Dr. Deepak Greenfield WBC 7.9 103/ul Normal 4.0-11.0 The [facility] Comment on above: Performed By: #### M G, CMP #### [facility] [address] [place] [address] Dr. Deepak Greenfield DEPAKENE/VALPROICon 01-13-20 22 DEPAKENE 89.7 ug/ml Normal 50.0-100.0 [facility] Comment on above: Performed By: #### I NFLUAB #### [facility] [address] [place] [address] Dr. Deepak Greenfield PROF CHEM 8 (BAS METB)on Anion gap [Moles/Vol] 12.9 mmol/L Normal [facility] Comment on above: Performed By: #### I NFLUAB #### [facility] [address] [place] [address] Dr. Deepak Greenfield Calcium [Mass/Vol] 8.8 mg/dL Normal 8.5-10.1 [facility] Comment on above: Performed By: #### I NFLUAB #### [facility] [address] [place] [address] Dr. Deepak Greenfeild Chloride [Moles/Vol] 103 mmol/L Normal 98-107 The [facility] Comment on above: Performed By: #### I NFLUAB #### [facility] [address] [address] [address] Deepak Greenfield CO2 [Moles/Vol] 28.1 mmol/L Normal 21.0-32.0 [facility] Comment on above: Performed By: #### I NFLUAB #### [facility] [address] [address] [address] Deepak Greenfield Creatinine [Mass/Vol] 0.58 mg/dL Critically low 0.70-1.30 [facility] Comment on above: Performed By: #### I NFLUAB #### [facility] [address] [address] [address] Deepak Greenfield EGFR-AF ITALIAN >60 Normal >=60 [facility] [place] Comment on above: Performed By: #### I NFLUAB #### [facility] [address] [address] [address] Deepak Greenfield EGFR-NON AF ITALIAN >60 Normal >=60 [facility] Comment on above: Performed By: #### I NFLUAB #### [facility] [address] [address] [address] Deepak Greenfield Glucose [Mass/Vol] 117 mg/dL Critically high 74-106 [facility] Comment on above: Performed By: #### I NFLUAB #### [facility] [address] [address] [address] Deepak Greenfield Potassium [Moles/Vol] 4.0 mmol/L Normal 3.5-5.1 [facility] Comment on above: Performed By: #### I NFLUAB #### [facility] [address] [address] [address] Deepak Greenfield Sodium [Moles/Vol] 140 mmol/L Normal 136-145 [facility] Comment on above: Performed By: #### I NFLUAB #### [facility] [address] [address] [address] Deepak Greenfield Urea nitrogen [Mass/Vol] 7.0 mg/dL Normal 7.0-18.0 [facility] Comment on above: Performed By: #### I NFLUAB #### [facility] [address] [address] [address] Deepak Greenfield Urea nitrogen/Creatinine [Mass ratio] 12.1 mg/mg Normal [facility] Comment on above: Performed By: #### I NFLUAB #### [facility] [address] [place] [address] Dr. Deepak Greenfield SGOTon 01-12-2022 AST [Catalytic activity/Vol] 31 U/L Normal 15-37 [facility] Comment on above: Performed By: #### C VDTBH #### [facility] [address] [address] [address] Deepak Greenfield SGPTon 01-12-2022 ALT [Catalytic activity/Vol] 48 U/L Normal 16-63 [facility] Comment on above: Performed By: #### C VDTBH #### [facility] [address] [place] [address] Dr. Deepak Greenfield T PROTEIN SERUMon 01-12-2022 Protein [Mass/Vol] 7.3 g/dL Normal 6.4-8.2 [facility] Comment on above: Performed By: #### B MP #### [facility] [address] [place] [address] Dr. Deepak Greenfield XR CHEST 2 Von [...] by: ANICETO CROCKER Date: 2022-01-06 16:15 Normal [facility] XR DEXA BONE DENSITYon 11-20 [...] MARGARITO DAVIES Date: 2021-11-20 11:42 Normal The [facility] US SCROTUMon 11-14-2021 US SCROTUM EXAMINATION: US [...] KRISTIAN BILLINGS Date: 2021-11-14 07:10 Normal The [facility] AMMONIAon 10-31-2021 Ammonia (P) [Moles/Vol] 88 umol/L Critically high - The [facility] Comment on above: Performed By: #### M G, CMP #### [facility] [address] [place] [address] Dr. Deepak Greenfield AMMONIAon 10-30-2021 Ammonia (P) [Moles/Vol] 103 umol/L Critically high 11-32 [facility] Comment on above: Result Comment: SPEC IMEN SLIGHTLY HEMOLYZED MAY AFFECT AMM RESULT Performed By: #### I NFLUAB #### [facility] [address] [place] [address] Dr. Deepak Greenfield WOUND CULTUREon 10-23-2021 Bacteria identified Aer cx Nom (Unsp spec) Final report Normal The [facility] Comment on above: Performed By: #### C XWND #### [facility] [address] [place] [address] Dr. Deepak Greenfield Result 1 Comment Normal [facility] Comment on above: Result Comment: No g rowth in 36 - 48 hours. Performed By: #### C XWND #### [facility] [address] [place] [address] Dr. Deepak Greenfield WOUND CULTUREon 10-02-2021 Bacteria identified Aer cx Nom (Unsp spec) Final report Normal The [facility] Comment on above: Performed By: #### A MM #### [facility] [address] [place] [address] Dr. Deepak Greenfield Result 1 Mixed skin omid Normal [facility] [place] Comment on above: Performed By: #### A MM #### [facility] [address] [place] [address] Dr. Deepak Greenfield AMYLASEon 09-22-2021 Amylase [Catalytic activity/Vol] 24 U/L Critically low 25-115 [facility] Comment on above: Performed By: #### C BC #### [facility] [address] [place] [address] Dr. Deepak Greenfield CBC AUTO DIFFon 09-22-2021 BASO # 0.0 103/ul Normal 0.0-0.1 [facility] Comment on above: Performed By: #### C VDTBH #### [facility] [address] [place] [address] Dr. Deepak Greenfield Basophils/100 WBC (Bld) 0.5 % Normal 0.2-2.0 [facility] Comment on above: Performed By: #### C VDTBH #### [facility] [address] [place] [address] Dr. Deepak Greenfield EO # 0.1 103/ul Normal 0.0-0.7 [facility] Comment on above: Performed By: #### C VDTBH #### [facility] [address] [place] [address] Dr. Deepak Greenfield Eosinophils/100 WBC (Bld) 1.3 % Normal 0.9-7.0 [facility] Comment on above: Performed By: #### C VDTBH #### [facility] [address] [place] [address] Dr. Deepak Greenfield Erythrocyte distribution width (RBC) [Ratio] 13.9 % Normal 11.0-15.0 [facility] Comment on above: Performed By: #### C VDTBH #### [facility] [address] [place] [address] Dr. Deepak Greenfield Hematocrit (Bld) [Volume fraction] 40.0 % Critically low 42.0-54.0 [facility] Comment on above: Performed By: #### C VDTBH #### [facility] [address] [place] [address] Dr. Deepak Greenfield Hemoglobin (Bld) [Mass/Vol] 13.0 g/dL Critically low 14.0-18.0 [facility] Comment on above: Performed By: #### C VDTBH #### [facility] [address] [place] [address] Dr. Deepak Greenfield IG # 0.01 10e3/ul Normal 0.00-0.03 [facility] Comment on above: Performed By: #### C VDTBH #### [facility] [address] [place] [address] Dr. Deepak Greenfield IG % 0.2 % Normal 0.0-0.5 [facility] Comment on above: Performed By: #### C VDTBH #### [facility] [address] [place] [address] Dr. Deepak Greenfield LYMPH # 3.0 103/ul Normal 1.2-3.8 [facility] Comment on above: Performed By: #### C VDTBH #### [facility] [address] [address] [address] Deepak Greenfield Lymphocytes/100 WBC (Bld) 47.9 % Normal 20.5-60.0 [facility] Comment on above: Performed By: #### C VDTBH #### [facility] [address] [address] [address] Deepak Greenfield MANUAL DIFF REQ NO Normal [facility] Comment on above: Performed By: #### C VDTBH #### [facility] [address] [address] [address] Deepak Greenfield MCH (RBC) [Entitic mass] 32.9 pg Normal 25.9-34.0 [facility] Comment on above: Performed By: #### C VDTBH #### [facility] [address] [place] [address] Dr. Deepak Greenfield MCHC (RBC) [Mass/Vol] 32.5 g/dL Normal 29.9-35.2 [facility] Comment on above: Performed By: #### C VDTBH #### [facility] [address] [address] [address] Deepak Greenfield MCV (RBC) [Entitic vol] 101.3 fL Critically high 80.0-94.0 [facility] Comment on above: Performed By: #### C VDTBH #### [facility] [address] [place] [address] Dr. Deepak Greenfield MONO # 0.7 103/ul Normal 0.3-0.8 [facility] Comment on above: Performed By: #### C VDTBH #### [facility] [address] [address] [address] Deepak Greenfield Monocytes/100 WBC (Bld) 10.3 % Normal 1.7-12.0 [facility] Comment on above: Performed By: #### C VDTBH #### [facility] [address] [address] [address] Deepak Greenfield NEUT # 2.5 103/ul Normal 1.4-6.5 [facility] Comment on above: Performed By: #### C VDTBH #### [facility] [address] [address] [address] Deepak Greenfield Neutrophils/100 WBC (Bld) 39.8 % Critically low 43.0-75.0 [facility] Comment on above: Performed By: #### C VDTBH #### [facility] [address] [address] [address] Deepak Greenfield Platelet mean volume (Bld) [Entitic vol] 10.1 fL Normal 9.5-13.5 [facility] Comment on above: Performed By: #### C VDTBH #### [facility] [address] [place] [address] Dr. Deepak Greenfield PLT 311 103/ul Normal 150-450 [facility] Comment on above: Performed By: #### C VDTBH #### [facility] [address] [place] [address] Dr. Deepak Greenfield RBC 3.95 106/ul Critically low 4.70-6.10 [facility] Comment on above: Performed By: #### C VDTBH #### [facility] [address] [place] [address] Dr. Deepak Greenfield WBC 6.3 103/ul Normal 4.0-11.0 [facility] Comment on above: Performed By: #### C VDTBH #### [facility] [address] [place] [address] ABD/PELV W CONon [...] JAMIE ALICIA Date: 2021-09-22 02:34 Normal [facility] CT HEAD WO CONon 09-22-2021 CT HEAD [...] by: BRITTON FONTENOT Date: 2021-09-22 01:13 Normal [facility] LIPASEon 09-22-2021 Lipase [Catalytic activity/Vol] 28.0 U/L Critically low 73.0-393.0 [facility] Comment on above: Performed By: #### C BC #### [facility] [address] [place] [address] Dr. Deepak Greenfield PROF 14(COMP METB)on 022 Albumin [Mass/Vol] 3.3 g/dL Critically low 3.4-5.0 Th e [facility] Comment on above: Performed By: #### B MP #### [facility] [address] [place] [address] Dr. Deepak Greenfield Albumin/Globulin [Mass ratio] 0.9 {ratio} Normal [facility] Comment on above: Performed By: #### B MP #### [facility] [address] [place] [address] Dr. Deepak Greenfield ALP [Catalytic activity/Vol] 38 U/L Critically low 46-116 [facility] Comment on above: Performed By: #### B MP #### [facility] [address] [place] [address] Dr. Deepak Greenfield ALT [Catalytic activity/Vol] 91 U/L Critically high 16-63 [facility] Comment on above: Performed By: #### B MP #### [facility] [address] [place] [address] Dr. Deepak Greenfield Anion gap [Moles/Vol] 10.2 mmol/L Normal [facility] Comment on above: Performed By: #### B MP #### [facility] [address] [place] [address] Dr. Deepak Greenfield AST [Catalytic activity/Vol] 50 U/L Critically high 15-37 [facility] Comment on above: Performed By: #### B MP #### [facility] [address] [place] [address] Dr. Deepak Greenfield Bilirubin [Mass/Vol] 0.3 mg/dL Normal 0.2-1.0 [facility] Comment on above: Performed By: #### B MP #### [facility] [address] [place] [address] Dr. Deepak Greenfield Calcium [Mass/Vol] 8.6 mg/dL Normal 8.5-10.1 [facility] Comment on above: Performed By: #### B MP #### [facility] [address] [place] [address] Dr. Deepak Greenfield Chloride [Moles/Vol] 106 mmol/L Normal 98-107 [facility] Comment on above: Performed By: #### B MP #### [facility] [address] [place] [address] Dr. Deepak Greenfield CO2 [Moles/Vol] 29.9 mmol/L Normal 21.0-32.0 [facility] Comment on above: Performed By: #### B MP #### [facility] [address] [place] [address] Dr. Deepak Greenfield Creatinine [Mass/Vol] 0.65 mg/dL Critically low 0.70-1.30 [facility] Comment on above: Performed By: #### B MP #### [facility] [address] [place] [address] Dr. Deepak Greenfield EGFR-AF ITALIAN >60 Normal >=60 [facility] Comment on above: Performed By: #### B MP #### [facility] [address] [place] [address] Dr. Deepak Greenfield EGFR-NON AF ITALIAN >60 Normal >=60 [facility] Comment on above: Performed By: #### B MP #### [facility] [address] [place] [address] Dr. Deepak Greenfield Globulin (S) [Mass/Vol] 3.7 g/dL Normal [facility] Comment on above: Performed By: #### B MP #### [facility] [address] [place] [address] Dr. Deepak Greenfield Glucose [Mass/Vol] 105 mg/dL Normal 74-106 [facility] Comment on above: Performed By: #### B MP #### [facility] [address] [place] [address] Dr. Deepak Greenfield Potassium [Moles/Vol] 4.1 mmol/L Normal 3.5-5.1 [facility] Comment on above: Performed By: #### B MP #### [facility] [facility] [address] [address] [address] Deepak Greenfield Protein [Mass/Vol] 7.0 g/dL Normal 6.4-8.2 [facility] Comment on above: Performed By: #### B MP #### [facility] [place] [facility] [address] [address] [address] Deepak Greenfield Sodium [Moles/Vol] 142 mmol/L Normal 136-145 [facility] Comment on above: Performed By: #### B MP #### [facility] [place] [address] [address] [address] Deepak Greenfield Urea nitrogen [Mass/Vol] 13.0 mg/dL Normal 7.0-18.0 [facility] Comment on above: Performed By: #### B MP #### [facility] [address] [address] [address] Deepak Greenfield Urea nitrogen/Creatinine [Mass ratio] 20.0 mg/mg Normal [facility] Comment on above: Performed By: #### B MP #### [facility] [address] [address] [address] Deepak Greenfield Vital Signs Date Time Vital Sign Value Performing Clinician Facility 12-19-2024 10:54-0400 Body height 157.48 cm Fam Acevedo DO Work Phone: [facility] 12-19-2024 10:54-0400 Body mass index (BMI) [Ratio] 25 kg/m2 Fam Acevedo DO Work Phone: [facility] 12-19-2024 10:54-0400 Body weight 62.19 kg Fam Acevedo DO Work Phone: [facility] 06-12-2024 08:27-0500 Body temperature 98.4 [degF] Ap Scott DDS Work Phone: [facility] 06-12-2024 08:27-0500 Diastolic blood pressure 84 mm[Hg] Ap Scott DDS [facility] 06-12-2024 08:27-0500 Heart rate 84 /min Ap Scott DDS Work Phone[facility] 06-12-2024 08:27-0500 Respiratory rate 16 /min Ap Scott DDS Work Phone: [facility] 06-12-2024 08:27-0500 SaO2% (BldA) [Mass fraction] 96 % Ap Scott DDS Work Phone[facility] 06-12-2024 08:27-0500 Systolic blood pressure 158 mm[Hg] Ap Scott DDS Work Phone: [facility] 06-12-2024 07:02-0500 Body weight 63.05 kg Ap Scott DDS Work Phone: [facility] 06-05-2024 21:37-0500 Heart rate 122 /min [facility] 06-02-2024 13:35-0500 Body temperature 98.91 [degF] [facility] 06-02-2024 13:35-0500 Body weight 63.05 kg [facility] 06-02-2024 13:35-0500 Diastolic blood pressure 73 mm[Hg] [facility] 06-02-2024 13:35-0500 Heart rate 115 /min [facility] 06-02-2024 13:35-0500 Respiratory rate 16 /min [facility] 06-02-2024 13:35-0500 Systolic blood pressure 154 mm[Hg] [facility] 06-02-2024 13:25-0500 Body temperature 98.91 [degF] Boyd Harry MD Work Phone: [facility] 06-02-2024 13:25-0500 Body weight 63.05 kg Boyd Harry MD Work Phone: [facility] 06-02-2024 13:25-0500 Diastolic blood pressure 73 mm[Hg] Boyd Harry MD Work Phone: [facility] 06-02-2024 13:25-0500 Heart rate 115 /min Boyd Harry MD Work Phone: [facility] 06-02-2024 13:25-0500 Respiratory rate 16 /min Boyd Harry MD Work Phone: [facility] 06-02-2024 13:25-0500 Systolic blood pressure 154 mm[Hg] Boyd Harry MD Work Phone: [facility] 05-31-2024 13:05-0500 Diastolic blood pressure 64 mm[Hg] Rodriguez Rashel DO Work Phone: [facility] 05-31-2024 13:05-0500 Systolic blood pressure 108 mm[Hg] Rodriguez Rashel DO Work Phone: [facility] 03-07-2024 11:34-0500 Diastolic blood pressure 88 mm[Hg] Rodriguez Rashel DO Work Phone: [facility] 03-07-2024 11:34-0500 Heart rate 68 /min Rodriguez Rashel DO Work Phone: [facility] 03-07-2024 11:34-0500 SaO2% (BldA) [Mass fraction] 98 % Rodriguez Rashel DO Work Phone: [facility] 03-07-2024 11:34-0500 Systolic blood pressure 128 mm[Hg] Rodriguez Rashel DO Work Phone: [facility] 12-16-2022 10:18-0400 Blood Pressure Location Arline Lue [facility] 12-16-2022 10:18-0400 Body temperature 98.06 [degF] Arline Lue [facility] 12-16-2022 10:18-0400 Diastolic blood pressure 78 mm[Hg] Arline Lue [facility] 12-16-2022 10:18-0400 Heart rate 84 /min Arline Lue [facility] 12-16-2022 10:18-0400 Systolic blood pressure 128 mm[Hg] Arline Lue [facility] 12-23-2021 11:30-0400 Body height 157.48 cm Antionette Leonel Other [facility] [employer] Other 12-23-2021 11:30-0400 Body mass index (BMI) [Ratio] 25.79 kg/m2 Antionette Leonel Other [employer] Other 12-23-2021 11:30-0400 Body temperature 98.5 [degF] Antionette Elonel Other [employer] Other 12-23-2021 11:30-0400 Body weight 63.96 kg Antionette Leonel Other [employer] Other 12-23-2021 11:30-0400 Diastolic blood pressure 70 mm[Hg] Antionette Leonel Other [employer] Other 12-23-2021 11:30-0400 Respiratory rate 20 /min Antionette Leonel Other [employer] Other 12-23-2021 11:30-0400 SaO2% (BldA) [Mass fraction] 99 % Antionette Leonel Other [employer] Other 12-23-2021 11:30-0400 Systolic blood pressure 120 mm[Hg] Antionette Leonel Other [employer] Other 10-22-2021 10:29-0400 Blood Pressure Location Arline Lue [facility] 10-22-2021 10:29-0400 Diastolic blood pressure 92 mm[Hg] Arline Lue [facility] 10-22-2021 10:29-0400 Heart rate 100 /min Arline Lue [facility] 10-22-2021 10:29-0400 Respiratory rate 16 /min Arline Lue [facility] 10-22-2021 10:29-0400 Systolic blood pressure 137 mm[Hg] Arline Lue [facility] Astaro Encounters Encounter Date Encounter Type Care Provider Facility Start: 01-16-2025 End: 01-16-2025 ambulatory Fam A Acevedo DO Work Phone: [facility] Work Phone: Start: 01-16-2025 End: 01-16-2025 Patient encounter procedure Antionette Little APRN [facility] Work Phone: Start: 12-19-2024 End: 12-19-2024 ambulatory Fam A Acevedo DO Work Phone: [facility] Work Phone: Start: 12-19-2024 End: 12-19-2024 Patient encounter procedure Marissa Schwarz APRN [facility] [place] Work Phone: Start: 12-11-2024 End: 12-11-2024 Patient encounter procedure Filomena Alfaro DDS Work Phone: [facility] Start: 12-11-2024 ambulatory UNKNOWN PROVIDER Facili ty:[facility] Start: 07-11-2024 End: 07-11-2024 ambulatory [facility] Work Phone: Start: 07-11-2024 End: 07-11-2024 Patient encounter procedure [facility] Work Phone: Start: 06-12-2024 ambulatory UNKNOWN PROVIDER Facili ty:[facility] Start: 06-12-2024 End: 06-12-2024 ambulatory AP SCOTT Facility:[facility] Start: 06-12-2024 End: 06-12-2024 Subsequent hospital visit by physician Ap Scott DDS Work Phone: [facility] Start: 06-12-2024 End: 06-30-2024 Patient encounter procedure Ap Scott DDS Work Phone: [facility] Start: 06-05-2024 End: 06-05-2024 Telephone encounter Blessing Roy RN [facility] Pre-Admission Testing Comment on above: PAT (Informed Consen t & Anesthesia consent obtained) Start: 06-02-2024 End: 06-02-2024 Subsequent hospital visit by physician Op Xray 1 [facility] Comment on above: Pre-op evaluation Start: 06-02-2024 End: 06-02-2024 ambulatory UNKNOWN PROVIDER Facility:[facility] Start: 06-02-2024 Encounter for other preprocedural examination UNKNOWN PROVIDER [facility] Start: 06-02-2024 End: 06-02-2024 Office outpatient new 45 minutes Pat Anesthesia [facility] Comment on above: Preop examination (P rimary Dx); Intellectual disability; Hypothyroidism, unspecified type; Seizure (HCC); Edema, unspecified type; Tachycardia, unspecified; Cardiomegaly; Abnormal electrocardiogram (ECG) (EKG); Abnormal electrocardiogram (ECG) (EKG); Abnormal electrocardiogram (ECG) (EKG) Pre-op evaluation (P rimary Dx); Mental disability; Hypothyroidism, unspecified type; Abnormal thyroid blood test Start: 06-02-2024 End: 06-02-2024 Preprocedural examination done Boyd Harry MD Work Phone: [facility] Work Phone: Start: 06-02-2024 End: 06-02-2024 ambulatory BOYD HARRY Facility:[facility] Start: 05-31-2024 End: 05-31-2024 Bamboo flowsheet [...] to same day surgery center Jared Adair DDBassam Work Phone: [facility] Start: 03-07-2024 End: 03-07-2024 Bamboo flowsheet Rodriguez Rashel DO Work Phone: [facility] [address] Start: 03-07-2024 End: 03-07-2024 Bamboo flowsheet Rodriguez Rashel DO Work Phone: [facility] [address] Start: 03-07-2024 End: 03-07-2024 Office outpatient visit 25 minutes Rodriguez Rashel DO Work Phone: [facility] [address] Comment on above: Generalized convulsi ve epilepsy (CMS/HCC) (Primary Dx); 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); Spastic hemiplegia affecting dominant side (CMS/HCC); Spastic hemiplegia, nondominant side (HCC) (CMS/HCC); Severe intellectual disabilities (CMS/HCC) Start: 03-07-2024 End: 03-07-2024 ambulatory RODRIGUEZ KISER Not Available Start: 01-11-2024 End: 01-11-2024 ambulatory [facility] Work Phone: Start: 01-11-2024 End: 01-11-2024 Patient encounter procedure [facility] Work Phone: Start: 11-07-2023 End: 11-07-2023 Letter encounter Abundio Mares DDS Work Phone: [facility] Start: 08-25-2023 End: 08-25-2023 ambulatory RODRIGUEZ KISER Not Available Start: 07-06-2023 End: 07-06-2023 ambulatory [facility] Work Phone: Start: 07-06-2023 End: 07-06-2023 Patient encounter procedure [facility] Work Phone: Start: 01-05-2023 End: 01-05-2023 ambulatory Antionette Leonel Other [employer] Other Start: 01-05-2023 Office outpatient vi sit 25 minutes Antionette Leonel [facility] Start: 12-16-2022 End: 12-17-2022 ambulatory Arline Levine Facility:[facility] Start: 12-16-2022 End: 12-16-2022 Patient encounter procedure Arline Levine [facility] Start: 08-04-2022 End: 08-04-[address] FAM ACEVEDO Facility:[facility] Start: 07-29-2022 End: 08-02-2022 Evaluation and management of inpatient DR FAM ACEVEDO Facility:[facility] Start: 07-26-2022 End: 07-27-[address] FAM ACEVEDO Facility:[facility] Start: 07-23-2022 End: 07-24-2022 ambulatory FAM ACEVEDO [facility] Start: 07-23-2022 End: 07-23-2022 Patient encounter procedure FAM ACEVEDO [facility] Start: 06-23-2022 End: 06-23-2022 ambulatory Antionette Elonel Other [employer] Other Start: 06-23-2022 Office outpatient vi sit 25 minutes Antionette Leonel [facility] Start: 06-03-2022 End: 06-04-[address] FAM ACEVEDO Facility:[facility] Start: 05-08-2022 Letter encounter Abundio Mares DDS Work Phone: [facility] Start: 04-22-2022 End: 04-23-[address] FAM ACEVEDO Facility:[facility] Start: 03-19-2022 End: 03-20-[address] FAM ACEVEDO Facility:[facility] Start: 03-10-2022 End: 03-11-[address] FAM ACEVEDO Facility:[facility] Start: 01-24-2022 End: 01-24-[address] DIAMOND BURGER . Facility:[facility] Start: 01-18-2022 End: 01-18-2022 ambulatory ANJELICA DOLL . Facility:[facility] Start: 01-13-[address] [facility]IGUEZ K[facility] Start: 01-12-2022 End: 01-13-[address] RODRIGUEZ KISER Facility:[facility] Start: 01-06-2022 End: 01-07-[address] FAM ACEVEDO Facility:[facility] Start: 12-23-2021 End: 12-23-2021 ambulatory Antionette Leonel Other [employer] Other Start: 12-23-2021 Office outpatient vi sit 25 minutes Antionette Leonel [facility] Start: 12-16-2021 End: 12-17-2021 Patient encounter procedure Mora Powell [facility] Work Phone: [facility] Start: 12-10-2021 End: 12-10-2021 Patient encounter procedure Arline Levine [facility] Start: 11-20-2021 End: 11-21-[address] FAM ACEVEDO Facility:[facility] Start: 11-13-2021 End: 11-14-2021 ambulatory ARLINE Duenas Facility:[facility] Start: 10-31-2021 End: 11-01-[address] FAM ACEVEDO Facility:[facility] Start: 10-22-2021 End: 10-22-2021 Patient encounter procedure Arline Levine [facility] Start: 10-21-2021 End: 10-21-[address] FAM [...] julisa implt npgt phys/qhp w/o programming Rodriguez Kiser DO Work Phone: Start: 03-13-2024 Elec julisa implt npgt phys/qhp w/o programming Rodriguez Kiser DO Work Phone: Plan of Treatment Date Care Activity Detail Author Start: 02-01-2030 Shingles (RZV) Vacci ne (1 of 2) Shingles (RZV) Vaccine (1 of 2) [facility] Start: 08-12-2028 Lipid panel Cholesterol [facility] Start: 06-02-2025 Thyroid stimulating hormone measurement TSH [facility] Start: 01-17-2025 Influenza vaccination Influenza Vacc ine (#1) [facility] Start: 12-18-2024 COVID-19 Vaccine ( season) COVID-19 Vaccine ( season) [facility] Start: 12-18-2024 Influenza vaccination Influenza Vacc ine (#1) [facility] Start: 12-11-2024 End: 12-11-2024 Patient encounter procedure [facility] Start: 11-20-2024 End: 11-20-2024 Patient encounter procedure 11/20/2024 11:20 AM EDT Office Visit YENNIFER AN [address] [place] [phone] Marissa Gonzalez NP [address] [place] [address] [facility] Start: 06-12-2024 Subsequent hospital visit by physician 06/12/2024 Hospital Encounter [facility] [address] [place] [address] Ap Scott, DDBassam [address] [place] [address] [facility] Start: 06-02-2024 End: 06-02-2024 Patient encounter procedure 06/02/2024 1:30 PM EST Office Visit [facility] [address] [place] [address] Boyd Harry MD [address] [place] [address] [facility] Start: 05-31-2024 End: 05-31-2024 Patient encounter procedure [facility] [address] Comment on above: Arrived Start: 05-30-2024 Welcome to Medicare Visit (G0402) Welcome to Medicare Visit (G0402) [facility] Start: 03-07-2024 End: 03-07-2024 Patient encounter procedure 03/07/2024 11:30 AM EST Office Visit [facility] [address] [place] [id number] Rodriguez Kiser DO [address] [place], [place] [id number] Arrived [facility] Comment on above: Arrived Start: 01-18-2024 Influenza vaccination Influenza Vacc ine (#1) [facility] Start: 12-19-2023 COVID-19 Vaccine ( season) COVID-19 Vaccine ( season) [facility] Start: 12-19-2023 Influenza vaccination Influenza Vacc ine (#1) [facility] Start: 12-18-2022 COVID-19 Vaccine ( season) COVID-19 Vaccine ( season) [facility] Start: 01-17-2022 Influenza vaccination Influenza Vacc ine (#1) [facility] Start: 02-01-2015 Lipid panel Cholesterol [facility] Start: 05-20-2012 Annual wellness visit Annual [facility] Visit (G0438) [facility] Start: 02-01-2007 HPV Vaccine (optiona l start 27-45 years) HPV Vaccine (optional start 27-45 years) [facility] Start: 02-01-1999 Hepatitis A (HAV) Vaccine (optional start 19+ years) Hepatitis A (HAV) Vaccine (optional start 19+ years) [facility] Start: 02-01-1999 Hepatitis B vaccination Hepatitis B (HBV) Vaccine (1 of 3 - 19+ 3-dose series) [facility] Start: 02-01-1998 Hepatitis C screening Hepatitis C An tibody [facility] Start: 02-01-1998 Tetanus + diphtheria + acellular pertussis vaccine (product) Tdap Booster [facility] Start: 02-01-1995 HIV screening HIV Test [facility] Start: 1980 COVID-19 Vaccine (#1) COVID-19 Vacci ne (#1) [facility] Start: 1980 Medicare Annual Wellness (AWV) Medicare Annual Wellness (AWV) [facility] Start: 1980 Prostate specific antigen measurement Prostate Cancer Screening (shared decision making) [facility] DENTAL RESTORATIONS DENTAL ANI RATIONS Routine scheduled Caries [facility] Immunizations Immunization Date Immunization Notes Care Provider Lucero perry 03-04-2020 pneumococcal conjuga te vaccine, [address] Work Phone: [facility] 01-26-2018 influenza, injectabl e, quadrivalent, preservative free Mora Urmetz [facility] Work Phone: [facility] 01-26-2018 influenza virus vaccine, unspecified formulation Mora Urmetz RDH Work Phone: [facility] 02-10-2017 influenza virus vaccine, unspecified formulation Arline Lue [facility] 02-10-2017 influenza, injectabl e, quadrivalent, contains preservative Mroa Urmetz RDH Work Phone: [facility] 02-07-2015 influenza virus vaccine, unspecified formulation Arline Lue [facility] 02-07-2015 influenza, injectabl e, quadrivalent, preservative free Mora Urmetz [facility]DH Work Phone: [facility] 10-23-2014 pneumococcal polysaccharide vaccine, 23 valent Mora Urmetz [facility]DH Work Phone: [facility] 12-31-2010 influenza virus vaccine, unspecified formulation Arline Lue [facility] 12-31-2010 influenza, seasonal, injectable Mora Powell [facility] Work Phone: [facility] 03-06-2009 novel [id number], preservative-free, injectable Mora Powell [facility] Work Phone: [facility] 02-09-2008 influenza virus vaccine, whole virus Mora Powell [facility] Work Phone: [facility] 02-09-2008 influenza, whole rAline Levine [facility] NEGATED: Highlighted row has not occurred!12-10-2021 SARS-CoV-2 mRNA (tozinameran 5y-11y) vaccine Arline Levine [facility] Payers Date Payer Category Payer Dental --Stand Alone DENTAL-MEDI CAID [id number] 2017 Medicaid [id number] [id number]. [id number] 2011 Medicare [id number] 1.13.56.2.7. [id number] 2011 Medicare FFS [id number]. 1.13.56.2.7. [id number] 1980 Unknown [id number] 2.16.840.1.534427.3.579.2.5 93 1980 Unknown [id number] 2.16.840.1.239046.3.579.2.5 93 1980 Unknown [id number] 2.16.840.1.526606.3.579.2.5 93 1980 Unknown [id number] 2.16.840.1.406403.3.579.2.5 93 1980 Unknown [id number] 2.16.840.1.114384.3.579.2.7 27 1980 Unknown [id number] 2..840.1.599189.3.579.2.7 27 1980 Unknown [id number] 2.16.840.1.572658.3.579.2.1 259 1980 Unknown [id number] ..840.1.940226.3.579.2.1 259 1980 Unknown [id number] 2.16.840.1.649068.3.579.2.1 259 1980 Unknown [id number] 2..840.1.965040.3.579.2.7 32 1980 Unknown [id number] 2.16.840.1.661134.3.579.2.7 32 1980 Unknown [id number] ..840.1.779524.3.579.2.7 32 1980 Unknown [id number] .16.840.1.860707.3.579.2.7 32 1980 Unknown [id number] .16.840.1.456076.3.579.2.7 32 1980 Unknown [id number] 2.16.840.1.182688.3.579.2.7 32 1980 Unknown [id number] 2.16.840.1.055778.3.579.2.7 32 1959 Medicaid [id number] 2.16.840.1.436215.19 1959 Medicare [id number] 2.16.840.1.339014.19 1953 Unknown [id number] 2.16.840.1.098662.3.579.2.5 1953 Unknown [id number] 2.16.840.1.494135.3.579.2.5 1953 Unknown [id number] 2.16.840.1.841556.3.579.2.5 1953 Unknown [id number] 2.16.840.1.167733.3.579.2.5 1953 Unknown [id number] 2.16.840.1.106714.3.579.2.5 1953 Unknown [id number] 2.16.840.1.596747.3.579.2.5 1953 Unknown [id number] 2.16.840.1.925672.3.579.2.5 1953 Unknown [id number] 2.16.840.1.350863.3.579.2.5 1953 Unknown [id number] 2.16.840.1.672047.3.579.2.5 1953 Unknown [id number] 2.16.840.1.786526.3.579.2.5 1953 Unknown [id number] 2.16.840.1.857339.3.579.2.5 1953 Unknown [id number] 2.16.840.1.722575.3.579.2.5 1953 Unknown [id number] 2.16.840.1.997635.3.579.2.5 1953 Unknown [id number] 2.16.840.1.859077.3.579.2.5 93 Self-pay Self Pay [id number] Social History Date Type Detail Facility Tobacco smoking status No Smokin g Status Entered [facility] Start: 11-02-2022 End: 05-31-2024 Sex Assigned At Male [facility] Start: 03-28-2020 End: 11-14-2024 Tobacco smoking status [facility]IS Tobacco smoking consumption unknown [facility] Start: 1980 [facility] smoking status No Smokin g Status Entered [facility] Start: 11-02-2022 End: 12-16-2022 Tobacco smoking status Never smoked tobacco (finding) [facility] Tobacco smoking status Never [facility] Start: 1980 Sex Assigned At Male [facility] Start: 11-02-2022 End: 05-31-2024 Alcoholic beverage intake Ex-drinker (finding) [facility] Start: 11-02-2022 End: 05-31-2024 History of Social function [facility] Start: 02-21-2012 End: 07-11-2024 Sex Male (finding) [facility] Functional Status Date Assessment Result Facility 12-16-2022 Functional Status N/A [facility] 12-10-2021 Functional Status N/A [facility] 10-22-2021 Functional Status N/A [facility] Clinical Notes 10-22-2021 to 12-19-2024 Note Date & Type Note Facility 12-19-2024 Evaluation note Diagnosis Onset Date Resolution Aphasia acute December 19, 2024 10:36am 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 acute December 19 10:36am Generalized convulsive epilepsy acute December 19 10:36am Motor delay acute December 10:36am Severe intellectual disability acute December 19 10:36am Spastic hemiplegia affecting dominant side acute [id number] 10:36am Spastic hemiplegia affecting nondominant side acute December 19 10:36am COPD (chronic obstructive pulmonary disease) acute January 16, 2025 10:26am Severe intellectual disability acute January 16, 2025 10:26am [facility] Work Phone: 1(356) 908-784008-25-2025 History of Present illness Narrative* Filomena Alfaro DDS - 12/11/2024 9:51 AM EDT ----- Wednesday, December 11, 2024 at 11:07:03 AM ----- ----- Provider: [id number] Resident Flaco -- Clinic: [place] ----- LIMITED EXAM Patient presents for Scheduled [...] for definitive treatment. Guardian mother Katia Lopez. [phone]. [facility] [phone] [phone] ( [facility]'s appt) Contact Information [phone] (Home Phone) Alternate Health And Safety Manager KORY (Other) NOTE: Scheduled for OR ----- Signed on Wednesday, December 11, 2024 at 12:38:13 PM ----- ----- Provider: [id number] Heriberto Jacobs DMD -- Clinic: [place] ----- documented in this [id number] Hospital Discharge instructions* Discharge Instructions* Adalgisa Maldonado RN - 06/12/2024 8:24 AM EST PERIOPERATIVE DISCHARGE/HOME-GOING INSTRUCTIONS ANESTHESIA - GENERAL (ADULT) If a problem arises, you may contact your physician by calling [phone] and asking for the resident heating and refrigeration inspector for Dental service. Special Care Needs: [...] very uncomfortable and can t urinate, call [phone] or come to the emergency room. A [...] to eat something about 15 minutes before takingany pain medications. Seek medical attention for any prolonged?PONV and signs of dehydration. The day after surgery, a nurse will call to check on you. However, if there are any questions or concerns, please call us at the number listed in the home going instructions. * Attachments The following attachments cannot be sent through Care Everywhere. * How to Care for Your Mouth and Teeth (Senegalese) documented in this [id number] History of Present illness Narrative* Ap Scott DDS - 06/12/2024 8:18 AM EST ----- Wednesday, June 12, 2024 at 8:41:56 AM ----- ----- Provider: [id number] - Ap Adams DDS -- Clinic: [facility] ----- H, pt is ready for tx. [place], only scaling was done. Operative Note PHE OR 3 Parish Lopez 44 year old male Surgical Contact Serial Number: [id number] Preoperative Diagnosis: Pre-op Diagnosis * Caries [K02.9] Mental disability COPD Hyperthyroidism Seizures HLD GERD Postoperative Diagnosis: Mental Disability COPD Hyperthyroidism Seizures HLD GERD Procedures: Full mouth x-rays [24892] Comprehensive Exam [35339] Dental prophylaxis [73219] Surgeon: Ap Scott DDS Scratch Finisher Surgeon: Hansel Burgess DDS; Beatris Thompson [...] plan included the following extraction(s) and/or root removal:no teeth are indicated for extraction The remaining [...] 2024 at 8:46:14 AM ----- ----- Provider: [id number] - Ap Adams DDS -- Clinic: [facility] ----- documented in this [id number] Surgery Surgical operation note* OP Note - Ap Scott DDS - 06/12/2024 7:07 AM EST Operative Note PHE OR 3 Parish Lopez 44 year old male Surgical Contact Serial Number: [id number] Preoperative Diagnosis: Pre-op Diagnosis * Caries [K02.9] Mental disability COPD Hyperthyroidism Seizures HLD GERD Postoperative Diagnosis: Mental Disability COPD Hyperthyroidism Seizures HLD GERD Procedures: Full mouth x-rays [19380] Comprehensive Exam [72634] Dental prophylaxis [49284] Surgeon: Ap Scott DDS Scratch Finisher Surgeon: Hansel Burgess DDS; Beatris Thompson [...] plan included the following extraction(s) and/or root removal:no teeth are indicated for extraction The remaining [...] Use 2.5 mg via nebulizer every 4 hoursas needed for Wheezing. Cholecalciferol (Vitamin D3) 125 [...] procedure. Beatris Thompson DDS 06/12/2024 7:07 AM [employer] Work Phone: 1(682) 238-671402-24-2025 Miscellaneous Notes* OP Note - Ap Scott DDS - 06/12/2024 7:07 AM EST Operative Note PHE OR 3 Parish Lopez 44 year old male Surgical Contact Serial Number: [id number] Preoperative Diagnosis: Pre-op Diagnosis * Caries [K02.9] Mental disability COPD Hyperthyroidism Seizures HLD GERD Postoperative Diagnosis: Mental Disability COPD Hyperthyroidism Seizures HLD GERD Procedures: Full mouth x-rays [92150] Comprehensive Exam [12607] Dental prophylaxis [67891] Surgeon: Ap Scott DDS Scratch Finisher Surgeon: Hansel Burgess DDS; Beatris Thompson [...] plan included the following extraction(s) and/or root removal:no teeth are indicated for extraction The remaining [...] Use 2.5 mg via nebulizer every 4 hoursas needed for Wheezing. Cholecalciferol (Vitamin D3) 125 [...] procedure. Beatris Thompson DDS 06/12/2024 7:07 AM * Blood Attestation - Blake Green MD - 06/12/2024 7:04 AM EST Blood Attestation: REFUSAL OF BLOOD OR BLOOD COMPONENTS: The patient and/or legal manufacturing sales representative has been explained the need for transfusion of blood and/or blood components. The risks, benefits and alternatives have been explained. Questions concerning the transfusion of blood or blood components have been asked andanswered. The patient and/or legal manufacturing sales representative have REFUSED TO CONSENT transfusion of blood or blood products. PER PATIENT'S MOTHER * Brief Operative Note - Beatris Thompson DDS - 06/12/2024 7:03 AM EST Brief Operative Note PHE OR 3 Parish Lopez 44 year old male Surgical Contact Serial Number: [id number] Preoperative Diagnosis: Pre-op Diagnosis * Caries [K02.9] Mental disability COPD Hyperthyroidism Seizures HLD GERD Postoperative Diagnosis: Mental disability COPD Hyperthyroidism Seizures HLD GERD Procedures: Full mouth x-rays [30148] Comprehensive Exam [24178] Dental prophylaxis [81800] Surgeon(s): Surgeon(s): Ap Scott DDS Staff: Commercial Subcontractor Nurse: Felisha Moore Anesthesia: General Anesthesiologist: Blake [...] 06/12/2024 8:43 AM EST documented in this [id number] Progress note* Blood Attestation - Blake Green MD - 06/12/2024 7:04 AM EST Blood Attestation: REFUSAL OF BLOOD OR BLOOD COMPONENTS: The patient and/or legal manufacturing sales representative has been explained the need for transfusion of blood and/or blood components. The risks, benefits and alternatives have been explained. Questions concerning the transfusion of blood or blood components have been asked andanswered. The patient and/or legal manufacturing sales representative have REFUSED TO CONSENT transfusion of blood or blood products. PER PATIENT'S MOTHER [employer] Work Phone: 1(524) 773-209302-24-2025 Surgery Postoperative evaluation and management note* Brief Operative Note - Beatris Thompson DDS - 06/12/2024 7:03 AM EST Brief Operative Note PHE OR 3 Parish Lopez 44 year old male Surgical Contact Serial Number: [id number] Preoperative Diagnosis: Pre-op Diagnosis * Caries [K02.9] Mental disability COPD Hyperthyroidism Seizures HLD GERD Postoperative Diagnosis: Mental disability COPD Hyperthyroidism Seizures HLD GERD Procedures: Full mouth x-rays [75558] Comprehensive Exam [06172] Dental prophylaxis [74932] Surgeon(s): Surgeon(s): Ap Scott DDS Staff: Commercial Subcontractor Nurse: Felisha Moore Anesthesia: General Anesthesiologist: Blake [...] Scott DDS at 06/12/2024 8:43 AM EST [id number] Consult note* Beatris Thompson DDS - 06/12/2024 6:58 AM EST Surgical Attestation: I have reviewed the patient's [...] Scott DDS at 06/12/2024 8:43 AM EST [id number] NoteSurgical Attestation: I have reviewed the patient's History and Physical Examination. I have personally seen and evaluated the patient, repeating anthony portions. There is no significant interval change. Surgery is still indicated. Yes Consent reviewed and signed by patient/family: Yes Operative site verified and marked: site verified but not marked as not anatomically possible Beatris Thompson DDS 06/12/2024 6:59 AMThe [facility] Consult note* Beatris Thompson DDS - 06/12/2024 6:58 AM EST Surgical Attestation: I have reviewed the patient's [...] 06/12/2024 8:43 AM EST documented in this [id number] Telephone encounter Note* Telephone Encounter - Blessing Roy RN - 06/05/2024 7:21 AM EST Informed Consent for dental surgery & Anesthesia consent obtained and scanned into Expert TA. Scheduled for surgery 06/12/2024. [id number] Miscellaneous Notes* Telephone Encounter - Blessing Roy RN - 06/05/2024 7:21 AM EST Informed Consent for dental surgery & Anesthesia consent obtained and scanned into Expert TA. Scheduled for surgery 06/12/2024. documented in this [id number] Note* Addendum Note - Boyd Harry MD - 06/02/2024 5:54 PM ESTAddended by: BOYD HARRY on: 06/02/2024 05:54 PM Modules accepted: Orders [id number] Miscellaneous Notes* Addendum Note - Boyd Harry MD - 06/02/2024 5:54 PM ESTAddended by: BOYD HARRY on: 06/02/2024 05:54 PM Modules accepted: Orders documented in this [id number] NoteEXAMINATION: XR CHEST PA+LAT 2 VIEWS 06/02/2024 03:22 [...] images and agree with the resident's interpretation. [id number] NoteEXAMINATION: XR CHEST PA+LAT 2 VIEWS 06/02/2024 03:22 [...] the images and agree with the resident's interpretation.The [facility]02-14-2025 Instructions* Patient Instructions* Boyd Harry MD - 06/02/2024 2:47 PM [...] surgery Boyd Harry MD documented in this [id number] History of Present illness Narrative* Boyd Harry MD - 06/02/2024 2:29 PM EST Blood pressure 154/73, pulse 115, temperature 98.9 [...] Use 2.5 mg via nebulizer every 4 hoursas needed for Wheezing. rifAXIMin (Xifaxan) 550 MG [...] 1 extraction; Surgeon: Ap Scott DDS; Location: [facility]; Service: Dental Pertinent Social History [...] fever, chills, night sweats, and weight loss [facility]: h/o Seizures; on multiple aeds Respiratory: h/o COPD No recent URI Cardiovascular: No h/o chest pain/OK/CHF/valvular disease/HTN GI: Hypersalivation Dysphagia GERD Constipation : [...] disease or well controlled major system disease. Diseasestatus limits daily activity. EKG: Date: 06/02/24 Result: [...] pending : at baseline Boyd Harry MD [id number] documented in this [id number] NoteDo not eat or drink anything after midnight [...] procedure. Contact the Pre-Surgical Evaluation department at [phone] or your surgeon's office with any additional questionsThe [facility]02-14-2025 Instructions* Patient Instructions* Сергей Alves MD - 06/02/2024 2:02 PM [...] least the 3 days prior to your procedure;these medications increase your risk of bleeding during the procedure. Contact the Pre-Surgical Evaluation department at [phone] or your surgeon's office with any additional questions documented in this [id number] Evaluation note* PAT Appt H&P - Сергей Alves MD - 06/02/2024 1:34 PM EST Pre-Admission Testing Consultation Parish Lopez, [id number] 44 year old Male 06/02/[address] [facility] by Dr. Zamora due to significant [...] No STOP BANG: STOP-BANG Row Name 06/02/24 1332 History of sleep apnea? No Snoring No [...] 1 extraction; Surgeon: Ap Scott DDS; Location: [facility]; Service: Dental Past Medical History and [...] and educating the patiecounseling and educating the patient/family/caregivernt/family/caregiver - counseling and educating the patient/family/caregiver - ordering medications, tests, or procedures - referring and communicating with other health home health caregiver (when not separately reported) - documenting clinical information in the electronic or other health record - independently interpreting results (not separately reported) and communicating results to the patient/family/caregiver - care coordination (not separately reported). Interviewer signature: Сергей Alves MD 1:35 PM 06/02/2024 Cosigned by Jonnie Aguilar MD at 06/02/2024 2:05 PM EST [id number] Miscellaneous Notes* PAT Appt H&P - Сергей Alves MD - 06/02/2024 1:34 PM EST Pre-Admission Testing Consultation Parish Calixtoyder, [id number] 44 year old Male 06/02/2024 Consult placed [...] No STOP BANG: STOP-BANG Row Name 06/02/24 133 History of sleep apnea? No Snoring No [...] 1 extraction; Surgeon: Ap Scott DDS; Location: [facility]; Service: Dental Past Medical History and [...] and educating the patiecounseling and educating the patient/family/caregivernt/family/caregiver - counseling and educating the patient/family/caregiver - ordering medications, tests, or procedures - referring and communicating with other health home health caregiver (when not separately reported) - documenting clinical information in the electronic or other health record - independently interpreting results (not separately reported) and communicating results to the patient/family/caregiver - care coordination (not separately reported). Interviewer signature: Сергей Alves MD 1:35 PM 06/02/2024 Cosigned by Jonnie Aguilar MD at 06/02/2024 2:05 PM EST documented in this [id number] NotePre-Admission Testing Consultation Parish Lopez, [id number] 44 year old Male 06/02/[address] [facility] by Dr. Zamora due to significant PMH of Seizures, mental disability, hypothyroid undergoing dental restorations 06/12 [facility] Triage Risk Score Total Score: 2 [...] No STOP BANG: STOP-BANG Row Name 06/02/24 3387 History of sleep apnea? No Snoring No [...] 1 extraction; Surgeon: Ap Scott DDS; Location: [facility]; Service: Dental Past [...] a medically appropriate examinati (more content not included)...The [employer] [id number] History of Present illness Narrative* Rodriguez Kiser DO - 05/31/2024 1:00 PM EST Chief Complaint Patient presents with Seizures Subjective [...] disorder) ADD/ADHD ADHD (attention deficit hyperactivity disorder) ([facility]) ADD/ADHD Chronic sinusitis Excessive salivation Hypertrophy tonsils [...] significant spasticity DTR: Biceps, BR 2/4 Patellar 1 Gait: Wheelchair-bound Romberg's Wheelchair-bound Review and summary of old records: Labs good Ammonia 19 VNS Readings: Output Current: 2.0 Signal Frequency: 30 Pulse Width: Hz: 250 Signal On Time: 30 sec Signal Off Time: 1.8 Magnet Output Current: 2.25 Pulse Width: 500 On Time: 30 sec # Magnet Usages: 184 (51 more) oddly now 124 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 Genetictesting for that and it was negative. Regardless there is really no other treatment and it was moreinformative. Plan: VNS interrogated and it is working well = battery is 50-75% full He actually for some reason has less swipes on this recording however it may be due to a new system software programmer device difficult to say Labs as above Cont the current meds Call for increase in events. If ammonia elavates increase the lactulose. Follow up 6 months This is a complicated patient due to his degree of seizure activity and continued seizures with breakthrough seizures. Unfortunately this increases the risk of morbidity and mortality. We do have himlikely as good as he is going to [...] to clinic: 6 months. documented in this encounterSalem Memorial District [id number] History of Present illness Narrative* Rodriguez Kiser DO - 03/07/2024 11:30 AM EST No chief complaint on file. Subjective Parish [...] Life: 06/20 full Model: Oj Rocha #: [id number] Manufactured: 2019 Implant Date: 09/09/2021 Assessment/Plan Diagnoses [...] in the room then have seen him inawhile. He is on Keppra felbamate Trileptal and [...] He was previously thought to have Tristen disease.Genetic testing for that and it was negative. [...] of morbidity and mortality. We do have himlikely as good as he is going to [...] to clinic: 6 months. documented in this encounterSalem Memorial District [id number] Evaluation note* Encounter Date Diagnosis Assessment Notes Treatment Notes Treatment Clinical Notes Dec, COPD (chronic obstructive pulmonary disease) (ICD-10 - J44.9) [employer] Other 08-30-2023 Hospital Discharge instructions Patient [...] provider. Document Revised: 08/14/2021 Document Reviewed: 08/14/2021 [employer] Patient Education 2022 [employer]. Follow Up Care 12/10/2021 11:51:23 With:Abner BYRNE, JUNIOR Hawk, URO Address: When: Unknown Comments:LENORA [facility] [employer] 03-07-2023 Evaluation note* Encounter Date Diagnosis Assessment Notes Treatment Notes Treatment Clinical Notes Jun, COPD (chronic obstructive pulmonary disease) (ICD-10 - J44.9) Continue with respiratory regemin, including VEST therapy, as you currently are doing. Call office with respiratory questions or concerns. [employer] Other 09-06-2022 Evaluation note* Encounter Date Diagnosis Assessment Notes Treatment Notes Treatment Clinical Notes Dec, COPD (chronic obstructive pulmonary disease) (ICD-10 - J44.9) Continue with VEST therapy twice a day. Ok to increase to TID if needed. [employer] Other 08-30-2022 Instructions* Patient Instructions* Mora Powell RDH - 12/16/2021 11:57 AM EDT Pt presented today for OR evaluation. Limited eval was completed. Pt's case is not urgent updated contact information and placed Pt on OR list. Step by step process for OR flyer was given to caregiver. Please wait for phone call from OR coordinator. documented in this [id number] History of Present illness Narrative* Mora Powell RDH - 12/16/2021 11:42 AM EDT ----- Thursday, December 16, 2021 at 12:03:50 PM ----- ----- Provider: [id number] Heriberto Powell Hygienist -- Clinic: [place] ----- [facility], Pt is ready for tx. Pt presented for dental evaluation for future OR. Caregiver in the room. Patient is non-verbal. Severe intellectual disability, seizure disorder Caregiver stated patient is not pain and no complaining. Radiograph taken today: no possible due to patient behavior Case requested for OR. Guardian mother Katia Lopez. [phone]. [facility] [phone] EXT [id number] ( [facility] pt's appt) AVS printed and handed flyer for step by step instruction of OR process to Caregiver exam By: Elliott Ham [facility] [place]. OR ----- Signed on Thursday, December 16, 2021 at 12:18:18 PM ----- ----- Provider: [id number] Heriberto Adams DDS -- Clinic: [place] ----- documented in this [id number] Hospital Discharge instructions Patient Education 12/10/2021 11:47:35 [...] stimulation). For women, using a medical billing clerk to prevent urine leaks. This is [...] right after experiencing incontinence. General instructions Take qzye-cxo-bgrcpth and prescription medicines only as told by [...] 05/13/2005 Document Revised: 04/15/2018 Document Reviewed: 07/15/2017 [employer] Patient Education 2020 [employer] Follow Up Care 10/22/2021 11:38:20 With:Abner BYRNE, JUNIOR Hawk, URO Address: When:1 year Comments:W/ renal US [facility] 07-06-2022 Hospital Discharge instructions Patient Education [...] stimulation). For women, using a medical billing clerk to prevent urine leaks. This is [...] right after experiencing incontinence. General instructions Take yrgl-pcs-amdpnbr and prescription medicines only as told by [...] 05/13/2005 Document Revised: 04/15/2018 Document Reviewed: 07/15/2017 [employer] Patient Education 2020 [employer]. 10/22/2021 11:42:30 Renal Mass Renal Mass A [...] provider gives to you. In general: Take cruz-ijl-wfrzwio and prescription medicines only as told by [...] 10/31/2014 Document Revised: 05/12/2018 Document Reviewed: 05/12/2018 [employer] Patient Education 2020 [employer]. Follow Up Care 09/22/2021 14:10:46 With:Abner BYRNE, JUNIOR Hawk, URO Address: When:1 month [facility] evaluation + Plan note Future Appointments Appointment Date:11/19/2021 10:00:00 AM Scheduled Provider:Arline Levine MD Location:[facility] Appointment Type:URO Office Visit [facility] evaluation + Plan note Future Appointments Appointment Date:12/16/2022 10:15:00 AM Scheduled Provider:Arline Levine MD Location:[facility] Appointment Type:URO Office Visit [facility] evaluation note* Diagnosis Onset Date Resolution Status COPD (chronic obstructive pulmonary disease) acute Severe intellectual disability acute [facility] Work Phone: Evaluation note* Diagnosis [...] (chronic obstructive pulmonary disease) acute July 11, 9:09am Severe intellectual disability acute July 11, 2024 9:09am [facility] Work Phone: Evaluation note* Diagnosis Preop [...] in this encounter [facility] noteNo assessment information availablePromedica Fostoria Community Hospital Work Phone: History general Narrative - Reported* Type Description Date Medical History Mental retardation Medical History Seizure Disorder Medical History Tristen Syndrome Medical History ADD Medical History Hypothyroidism Medical History Spastic Quadraparesis Medical History Osteoporosis Medical History Tristen-Beuren syndrome Medical History Seizure disorder Medical History Seizure disorder Medical History COPD Surgical History VNS REPLACED 2021 [employer] Other Hospital course Narrative No data available for this section [facility] Hospital Discharge instructions No data available for this section [facility] No data available for this section [facility] reason for referral (narrative)No reason for referral information availablePromedica Fostoria Community Hospital Work Phone: Reason for visit Narrative* Diagnostic X-Ray (Routine) - Closed Specialty Diagnoses / Procedures Referred By Contac t Referred To Contact Radiology Diagnoses Pre-op evaluation Procedures XR CHEST PA+LAT 2 VIEWS Boyd Harry MD [address] [place] [address] Phone: tel: fax: S DI[facility]ST[facility] RADIOLOGY [address] [facility] [place] [address] Phone: tel: Referral ID Status Reason Start Date Expiration Date Visits Re quested Visits Authorized [id number] Closed 06/02/2024 06/02/2025 1 1 [facility] Narrative* Auth/Cert (Routine) Specialty Diagnoses / Procedures Referred By Snow t Referred To Contact Ambulatory Surgery Diagnoses Caries Caries [K02.9] Procedures UNLISTED PROCEDURE, DENTOALVEOLAR STRUCTURES ANESTHESIA, INTRAORAL PROC, W/BX; NOS DENTAL RESTORATIONS Ap Scott, DDS [address] [place] [address] Phone: tel: fax: [employer] [place] [address] Phone: tel: Referral ID Status Reason Start Date Expiration Date Visits Re quested Visits Authorized [id number] 3 3 [facility] Summary Purpose Family History Relationship Condition Age at Onset Recorded Date/T bryan Not Specified Family history unknown Unknown Advance Directives Advance Directive Response Recorded Date/ Time Advance Directives No March 4:51pm Advance Directive Response Recorded Date/ Time Advance Directives Yes July 05, 10:35am Advance Directive Response Recorded Date/ Time [...] 6 MONTH F/U December 19, 2024 10:36am Chief Complaint Admit Date R/S 11/20/24, 6 MONTH F/U December 19, 2024 10:36am H mo f/u COPD January 16, 2025 10:26am Reason for Visit Admit Date Aphasia December 19, 2024 10:36am 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 December 19, 2024 10:36am Generalized convulsive epilepsy Septembe r 2024 10:36am 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, 2024 10:36am Severe intellectual disability December 19, 2024 10:36am Spastic hemiplegia affecting dominant si de December 19, 2024 10:36am Spastic hemiplegia affecting nondominant side December 19, 2024 10:36am COPD (chronic obstructive pulmonary dise ase) January 16, 2025 10:26am Severe intellectual disability January 16, 2025 10:26am Additional Source Comments Care Team (unrecognized sect ion and content) Tractor Trailer Driver Relationship Specialty Start Date End Date Abundio Mares, [facility] [address] [place], [place] [id number] Resident Dentistry 02/23/20 Tractor Trailer Driver Relationship Specialty Start Date End Date Abundio Mares, [facility] [address] [place] [address] Resident Dentistry 02/23/20 Team Status: Active Member Role Status Dates Fam Acevedo DO Primary Care Provider Active Team Status: Inactive Member Role Status Dates Fam Acevedo DO Primary Care Provider Active Start: July 06, 2023 End: July 06, 2023 JEOVANY Renee Attending Provider Active Start: July 06, 2023 End: July 06, 2023 Tractor Trailer Driver Relationship Specialty Start Date End Date Abundio Mares, [facility] [address] [place] [address] Resident Dentistry 02/23/20 Team Status: Inactive Member Role Status Dates Fam Acevedo DO Primary Care Provider Active Start: January 11, 2024 End: January 11, 2024 JEOVANY Renee Attending Provider Active Start: January 11, 2024 End: January 11, 2024 [place] Active Start: Septembe r 2023 End: January 11, 2024 Tractor Trailer Driver Relationship Specialty Start Date End Date Unallocated, [place] MD [address] [place] [id number] PCP - General 09/23/22 Fam Acevedo MD [address] [place] [address] Referring Physician Orthopaedic Surgery 09/23/22 Tractor Trailer Driver Relationship Specialty Start Date End Date Unallocated, Rossi Fermin MD [address] [place] [id number] PCP - General 09/23/22 Fam Acevedo MD [facility] [address] [place] [address] Referring Physician Orthopaedic Surgery 09/23/22 Tractor Trailer Driver Relationship Specialty Start Date End Date Abundio Mares [address] [place] [address] Resident Dentistry 02/23/20 Tractor Trailer Driver Relationship Specialty Start Date End Date Abundio Mares [facility] [address] [place] [address] Resident Dentistry 02/23/20 Tractor Trailer Driver Relationship Specialty Start Date End Date Unallocated, Rossi Fermin MD [address] [place] [address] PCP - General 09/23/22 Fam Acevedo MD [facility] [address] [place] [address] Referring Physician Orthopaedic Surgery 09/23/22 Team Status: Inactive Member Role Status Dates Fam Acevedo DO Primary Care Provider Active Start: July 11, 2024 End: July 11, 2024 Antionette Castaneda APRN [facility]- Attending Provider Active Start: July 11, 2024 End: July 11, 2024 Tractor Trailer Driver Relationship Specialty Start Date End Date Vishnu, Abundio, [address] [address] Resident Dentistry 02/23/20 Tractor Trailer Driver Relationship Specialty Start Date End Date Abundio Mares [address] [address] Resident Dentistry 02/23/20 Tractor Trailer Driver Relationship Specialty Start Date End Date Abundio Mares [address] [address] Resident Dentistry 02/23/20 Tractor Trailer Driver Relationship Specialty Start Date End Date Abundio Mares [address] [address] Resident Dentistry 02/23/20 Tractor Trailer Driver Relationship Specialty Start Date End Date Abundio Mares [address] [address] Resident Dentistry 02/23/20 Tractor Trailer Driver Relationship Specialty Start Date End Date Abundio Mares [address] [address] Resident Dentistry 02/23/20 Team Status: Inactive Member Role Status Dates Fam Acevedo DO Primary Care Provider Active Start: December 19, 2024 End: December 19, 2024 Marissa Gonzalez APRN Attending Provider Active Start: December 19, 2024 End: December 19, 2024 Team Status: Inactive Member Role Status Dates Fam Acevedo DO Primary Care Provider Active Start: January 16, 2025 End: January 16, 2025 Antionette Castaneda APRN [facility]- Attending Provider Active Start: January 16, 2025 End: January 16, 2025 REASON FOR VISIT (unrecogniz ed section and [...] DATE CREATED AUTHOR AUTHOR'S ORGANIZ ATION 01/26/2023 [facility] DATE CREATED AUTHOR AUTHOR'S ORGANIZ ATION 06/02/2024 [facility] DATE CREATED AUTHOR AUTHOR'S ORGANIZ ATION 12/18/2024 [facility] Goals (unrecognized section and content) Goals [...] mg, Oral, PACU ONCE PRN, Starting on 06/12/24 at 0652, Until 06/12/24 at 1045, Mild Pain (pain score 1,2,3), PACU Now albuterol (PROVENTIL) (2.5 MG/3ML) 0.083% nebulizer solution 2.5 mg, Nebulization, PACU ONCE PRN, Starting on 06/12/24 at 0652, Until Wed06/12/24 at 1045, Wheezing, PACU Now amisulpride (BARHEMSYS) injection 10 mg 10 mg, Intravenous Push, PACU ONCE PRN, Starting on 06/12/24 at 0652, Until 06/12/24 at 1045, post operative nausea or vomiting, PACU Now bacitracin 500 UNIT/GM ointment (CANCELED) PRN, Starting on 06/12/24 at 0815, Until 06/12/24 at 0828, Intra-op 0815 (Given - Provid [...] BE BASED ON THE PRIMARY CLINICAL RECORDS. [facility]. provides no warranty or guarantee of the accuracy or completeness of information in this document.
[2025-01-23 12:33] LABS: Ammonia 85 umol/L (11-32)
== END 2025-01-23 11:52 | disposition home or self-care (01) ==
LOC: LAB 11:51
PROVIDERS: PCP Family Medicine; Visit Provider Family Medicine
DX: G93.49 Other encephalopathy (principal); Z79.899 Other long term (current) drug therapy
CPT/HCPCS: 36415; 82140

== ENCOUNTER 2025-03-01 13:04 | Outpatient (OUT) | payer MEDICARE, MEDICAID, SELFPAY ==
--- OUTSIDE RECORDS SUMMARY | 2025-03-01 13:08 | XMS_ITS | Clinical Summary ---
Author Organization [facility] Address [address], [address] [place] [address] Care Team Providers Care Water Plant Operator Name Role Phone Unavailable Primary Care Provider Unavailabl e Allergies Active AllergyReactionsCriticalityNoted DateCommentsAmoxicillin-Pot Clavulanate 05/12/2016 Unknown reaction Phenytoin Sodium Qczvqyen07/24/2017 Unknown reaction Promethazine MifUfmo2405/12/2016 Unknown reaction Medications MedicationSigDispense QuantityRefillsLast FilledStart DateEnd DateStatus alendronate (FOSAMAX) 70 MG tablet Take 70 mg by mouth every 7 daysActive atorvastatin (LIPITOR) 10 MG tablet Take 10 mg by mouth nightlyActive divalproex (DEPAKOTE) [address] tablet Take 250 mg by mouth 2 times dailyActive divalproex (DEPAKOTE) [address] tablet Take 125 mg by mouth dailyActive docusate sodium (COLACE) 100 MG capsule Take 100 mg by mouth 2 times dailyActive felbamate (FELBATOL) 400 MG tablet Take 400 mg by mouth 3 times dailyActive furosemide (LASIX) 20 MG tablet Take 20 mg by mouth dailyActive glycopyrrolate (ROBINUL) 1 MG tablet Take 1 mg by mouth 2 times dailyActive ipratropium-albuterol (DUONEB) 0.5-2.5 (3) MG/3ML SOLN nebulizer solution Inhale 1 vial into the lungs 3 times dailyActive lactulose (CHRONULAC) 10 GM/15ML solution Take 10 g by mouth 4 times daily Take 60 ml by mouthActive levETIRAcetam (KEPPRA) 750 MG tablet Take 750 mg by mouth 2 times daily Take two tabs by mouth morning and bedtime Active levothyroxine (SYNTHROID) 100 MCG tablet Take 100 mcg by mouth nightlyActive levothyroxine (SYNTHROID) 50 MCG tablet Take 50 mcg by mouth nightlyActive linaclotide (LINZESS) 145 MCG capsule Take 145 mcg by mouth dailyActive magnesium oxide (MAG-OX) 400 MG tablet Take 400 mg by mouth dailyActive melatonin 3 MG TABS tablet Take 5 mg by mouth nightlyActive montelukast (SINGULAIR) 10 MG tablet Take 10 mg by mouth nightlyActive guaiFENesin (MUCINEX) 600 MG extended release tablet Take 600 mg by mouth 2 times dailyActive Multiple Vitamins-Minerals (THERAPEUTIC MULTIVITAMIN-MINERALS) tablet Take 1 tablet by mouth dailyActive omeprazole (PRILOSEC) 20 MG delayed release capsule Take 40 mg by mouth dailyActive cloBAZam (ONFI) 10 MG TABS tablet Take 10 mg by mouth 2 times dailyActive OXcarbazepine (TRILEPTAL) 300 MG tablet Take 300 mg by mouth 2 times dailyActive OXcarbazepine (TRILEPTAL) 600 MG tablet Take 600 mg by mouth 2 times dailyActive calcium-vitamin D (OSCAL-500) 500-200 MG-UNIT per tablet Take 1 tablet by mouth 2 times dailyActive polyethylene glycol (GLYCOLAX) powder Take 17 g by mouth dailyActive tamsulosin (FLOMAX) 0.4 MG capsule Take 0.4 mg by mouth dailyActive ascorbic acid (VITAMIN C) 500 MG tablet Take 500 mg by mouth 2 times dailyActive azelastine (ASTELIN) 0.1 % nasal spray Indications:137 mcg2 sprays by Nasal route 2 times daily Indications: 137 mcg Use in each nostril as directedActive Loratadine-Pseudoephedrine (ALLERGY RELIEF D-24 PO) Take 1 tablet by mouth dailyActive sodium chloride (OCEAN, BABY AYR) 0.65 % nasal spray 2 sprays by Nasal route 3 times daily AYR saline nasal gel spray 3 times daily Active Social History Tobacco UseTypesPacks/DayYears UsedDateSmoking Tobacco: Never AssessedSex and Gender InformationValueDate RecordedSex Assigned at BirthNot on fileLegal Sex Male05/29/2012 4:52 PM ESTGender IdentityNot on fileSexual OrientationNot on file Last Filed Vital Signs Vital SignReadingTime TakenCommentsBlood Afocnmzt908/6801 12:23 PM EST Eaxoo6554 12:23 PM POIYjwibuzohkv92.4 ??C (97.6 ??F)05/12/2016 11:26 AM ESTRespiratory Wryd214805/12/2016 12:23 PM ESTOxygen Dpkymzziwl75%05/12/2016 12:23 PM ESTInhaled Oxygen Concentration--Goyiys18.5 kg (146 lb 8 oz)05/12/2016 9:29 AM HXEDelbme598.5 cm (5' 2 )05/12/2016 9:29 AM ESTBody Mass Index26. 9:29 AM EST Plan of Treatment Not on file Medical Devices ImplantedTypeAreaManufacturerDevice IdentifierShelf Expiration DateModel / Serial / LotGenerator Aspire Sr - [id number] Implanted:Qty: 1 on 05/12/2016 by Beni Martin MD at [id number] / [id number] / Insurance
--- OUTSIDE RECORDS SUMMARY | 2025-03-01 13:08 | XMS_ITS | Clinical Summary ---
Author Organization [facility] Address [address] [place] [address] Care Team Providers Care Bin Cleaner Name Role Phone Fam Acevedo MD Unavailable [phone] Unallocated, Noms Provider MD Primary Care Provi scotty Allergies Active AllergyReactionsCriticalityNoted QpwbTgrfiptmIxuylukhschAnqnqxo36/06/2024 Amoxicillin-Pot DrnrrlictefFizzjbi60/24/2017 Unknown reaction Unknown reaction Unknown reaction Clavulanic AqnvLqzytyj49/08/5342BttumsygqKnwejbc09/06/2024Phenytoin Sodium KosuloynZotlntd97/24/2017 Unknown reaction Unknown reaction Unknown reaction AfgtrejaiglwGghzcxfFhut58/24/2017 Unknown reaction Unknown reaction Unknown reaction Medications MedicationSigDispense QuantityRefillsLast FilledStart DateEnd DateStatus alendronate (Fosamax) 70 MG tablet 1 tablet 30 minutes before the first food, beverage or medicine of the day with plain water OrallyActive atorvastatin (Lipitor) 10 MG tablet Take 10 mg by mouth in the morning.Active budesonide (Pulmicort) 0.5 MG/2ML nebulizer solution INHALE 1 VIAL BY NEBULIZER TWICE A DAY MAY MIX WITH IPATROPRIUMALBUT CHASITY AT 8AM AND 4PMActive Calcium Carb-Cholecalciferol (Oyster Shell Calcium w/D) 500-5 MG-MCG tablet Take 1 tablet by mouth in the morning and 1 tablet in the evening.Active cloBAZam (Onfi) 10 MG tablet TAKE ONE TABLET BY MOUTH TWICE A DAY ONFIActive Docusate Sodium (DSS) 100 MG capsule Take 100 mg by mouth in the morning and 100 mg before bedtime.Active felbamate (Felbatol) 400 MG tablet 1 (one) time each day at the same timeActive fenofibrate (Tricor) 145 MG tablet 1 (one) time each day at the same timeActive fluticasone (Flonase) 50 MCG/ACT nasal spray USE 2 SPRAYS IN EACH NOSTRIL ONCE DAILY FLONASEActive furosemide (Lasix) 20 MG tablet 1 (one) time each day at the same timeActive glycopyrrolate (Robinul) 1 MG tablet glycopyrrolate 1 mg tabletActive lactulose (Chronulac) 10 GM/15ML solution TAKE 90ML BY MOUTH AT 8AM, 12PM, AND 8PMActive levETIRAcetam (Keppra) 750 MG tablet levetiracetam 750 mg tabletActive levothyroxine (Synthroid, Levoxyl) 150 MCG tablet 11/10/2022ctive Linzess 145 MCG capsule Take 145 mcg by mouth in the morning.Active magnesium oxide (Mag-Ox) 400 MG tablet Take 400 mg by mouth DailyActive omeprazole (PriLOSEC) [address] capsule 1 (one) time each day at the same timeActive OXcarbazepine (Trileptal) 600 MG tablet oxcarbazepine 600 mg tabletActive Active Problems ProblemNoted DateDiagnosed DateSpastic hemiplegia affecting dominant side 08/23/2023Spastic hemiplegia, nondominant side08/23/20233666Pxiznuc06/06/2024 Secondary glomerular eiclgbn1808/23/2023Seizure jbtpahgt64/06/2024Epilepsy 08/23/2023Severe intellectual xbnobusvoxil21/06/2024 Family History Medical HistoryRelationNameCommentsCancerOtherFamily historyHypertensionOther Family historyStrokeOtherFamily historyRelationNameStatusCommentsFatherAlive MotherAliveOtherFamily history Social History Tobacco UseTypesPacks/DayYears UsedDateSmoking Tobacco: Never Tobacco Cessation:Counseling Given: Not Answered Alcohol UseStandard Drinks/WeekCommentsNot Currently0 (1 standard drink = 0.6 oz pure alcohol)Sex and Gender InformationValueDate RecordedSex Assigned at Not on fileLegal GpbFtmt1107/01/2022 6:58 PM EDTGender IdentityNot on fileSexual OrientationNot on file Last Filed Vital Signs Vital SignReadingTime TakenCommentsBlood Palflghm686/6402/03/2025 1:05 PM EST Xhxcw9151/ 11:34 AM ESTTemperature--Respiratory Dtvm4563 1:19 PM EDTOxygen Ocrqfqunmw28%03/07/2024 11:34 AM ESTInhaled Oxygen Concentration-- Vqfysr37.6 kg (135 lb 12.8 oz)08/25/2023 1:19 PM FJXOgiiuu825.5 cm (5' 2 ) 08/25/2023 1:19 PM EDTBody Mass Index24.8408/25/2023 1:19 PM EDT Plan of Treatment Health MaintenanceDue DateLast DoneCommentsCT Tjkbvknbibhm1980Colonoscopy 1980Colorectal Cancer Bwudoricd1980FIT-DNA1980FIT1980 FOBT1980Medicare Annual Wellness (AWV)1980 5664Nrzrsvcixlohk1980 COVID-19 Vaccine ( season)2024Influenza Vaccine (#1)2024 01/26/2018, 02/10/2017, 02/07/2015, Additional history existsPneumococcal Vaccine: Pediatrics (0 to 5 Years) and At-Risk Patients (6 to 64 Years)Aged Out No longer eligible based on patient's age to complete this topic Insurance Care Teams Team MemberRelationshipSpecialtyStart DateEnd Date Unallocated, Noms Provider, [address] [place], [place] [id number] PCP - General09/23/22 Fam Acevedo MD [facility] [address] [place] [address] Referring PhysicianOrthopaedic Surgery09/23/22
--- OUTSIDE RECORDS SUMMARY | 2025-03-01 13:08 | XMS_ITS | Clinical Summary ---
Author Organization [facility] Address [address] [facility] [place] [address] Care Team Providers Care Educational Diagnostician Name Role Phone Abundio Mares DDS Unavailable [phone] Source Comments The following information is NOT included in Care Everywhere downloads:Psychiatric notes, ECG results, Cardiac Rehab notes, Pulmonary Function notes, data from [employer] (includes but not limited toPregnancy data,audiograms, eye exams, pre-surgical evaluation notes, well-child exam data).[facility] Allergies Active AllergyReactionsCriticalityNoted DateCommentsAmoxicillin-Pot Clavulanate 05/12/2016 Unknown reaction Pertussis Hcaupwwb57/14/2025Phenytoin Sodium Wuoielzx69/24/2017 Unknown reaction LeevbbmklmcgLuik85/24/2017 Unknown reaction Medications MedicationSigDispense QuantityRefillsLast FilledStart DateEnd DateStatus atorvastatin (LIPITOR) 10 MG tablet 02/23/2020Active Nutritional Supplements (boost) Take by mouth. 1 can tidActive budesonide (PULMICORT) 0.5 MG/2ML nebulizer suspension Use 0.5 mg via nebulizer 2 times daily.Active cloBAZam (ONFI) 10 MG tablet Take 10 mg by mouth 2 times daily.Active docusate sodium (COLACE) 100 MG capsule Take 2 Capsules by mouth in the morning.Active felbamate (FELBATOL) 400 MG tablet Take by mouth 3 times daily. Take 1 tab at 8am, 12pm and 8pmActive fenofibrate (TRICOR) 145 MG tablet Take 145 mg by mouth daily.Active fluticasone (FLONASE) 50 mcg/act nasal inhaler Use 2 Sprays in each nostril daily.Active furosemide (LASIX) 20 MG tablet Take 20 mg by mouth daily.Active glycopyrrolate (ROBINUL) 1 MG tablet Take 1 mg by mouth 2 times daily.Active ipratropium-albuterol (DUO-NEB) 0.5-2.5 (3) MG/3ML nebulizer solution Use 3 mL via nebulizer 3 times a day.Active levETIRAcetam (Keppra) 500 MG tablet Take 500 mg by mouth at bedtime.Active levetiracetam (Keppra) 750 MG tablet Take 2 Tablets by mouth 2 times daily.Active levothyroxine (SYNTHROID) 150 MCG tablet Take 150 mcg by mouth daily.Active linaclotide (Linzess) 145 MCG CAPS capsule Take 145 mcg by mouth daily.Active loratadine (CLARITIN) 10 MG tablet Take 10 mg by mouth daily.Active Magnesium Oxide (MAG-OX 400 ORAL) Take 1 Tablet by mouth daily.Active montelukast (Singulair) 10 MG tablet Take 10 mg by mouth at bedtime.Active omeprazole (PRILOSEC) 40 MG capsule Take 40 mg by mouth daily.Active OXcarbazepine (Trileptal) 300 MG tablet Take 300 mg by mouth 2 times daily.Active oxcarbazepine (TRILEPTAL) 600 MG tablet Take 600 mg by mouth 2 times daily.Active polyethylene glycol (MIRALAX) packet Dissolve 17 g in 8 ounces of liquid and drink daily.Active denosumab (Prolia) 60 MG/ML injection Inject 60 mg under the skin. Every 6 monthsActive tamsulosin (Flomax) 0.4 MG capsule Take 0.4 mg by mouth daily.Active Cholecalciferol (Vitamin D3) 125 MCG (5000 UT) CAPS Take 125 mcg by mouth daily.Active rifAXIMin (Xifaxan) 550 MG tablet Take 550 mg by mouth 2 times daily.Active albuterol (PROVENTIL) (2.5 MG/3ML) 0.083% nebulizer solution Use 2.5 mg via nebulizer every 4 hours as needed for Wheezing.Active clonazePAM 0.25 MG TBDP Take 1 Tablet by mouth 2 times daily as needed for Other. For cluster of 5 seizuresActive diazePAM (DIASTAT) 10 MG rectal gel Insert 1 Each in the rectum as needed for Other (for 3 or more seizures in 2 hours; may repeat in 2hours as needed).Active senna (SENOKOT) 8.6 MG tablet Take 1 Tablet by mouth 2 times daily as needed for Constipation.Active Lactulose Encephalopathy (Enulose) 10 GM/15ML SOLN Take by mouth. 90 mL at 8am, 12pm and 8pmActive Active Problems ProblemNoted DateDiagnosed DateMental zkrbkampwr58/05/2020 Overview (02/22/2020): Added automatically from request for surgery [id number] Resolved Problems ProblemNoted DateDiagnosed DateResolved ExlrHshtqt25/10/202402/ Encounters DateTypeDepartmentCare DchnTqtcjjvtuco36/25/2025 10:00 AM EDTProcedure Visit [facility] [address] [place] [address] Filomena Alfaro DDS 5Abstract [facility] [address] [place] [address] Filomena Alfaro DDS from Last 3 Months Immunizations ImmunizationAdministration DatesNext DueInfluenza, injectable, quadrivalent, preservative (CFY=026)02/10/2017Influenza, injectable, quadrivalent, preservative free (WFU=373)01/26/2018,02/07/2015Influenza, injectable, trivalent, preservative (MUO=813)12/31/2010Influenza, novel T8X2-09, injectable, preservative-free (BKA=301)03/06/2009Influenza, whole virus (CVX=16)02/09/2008 Pneumococcal conjugate 13 valent (PCV13) (UDS=599)03/04/2020Pneumococcal polysaccharide 23 Valent (PPSV23) (CVX=33)10/23/2014 Social History Tobacco UseTypesPacks/DayYears UsedDateSmoking Tobacco: Never AssessedSex and Gender InformationValueDate RecordedSex Assigned at BirthNot on fileLegal Sex Male02/21/2012 8:16 AM ESTGender IdentityNot on fileSexual OrientationNot on file Last Filed Vital Signs Vital SignReadingTime TakenCommentsBlood Vzsfuvsf565/8402/ 8:27 AM EST Pevxc601406/12/2024 8:27 AM ZOQDowxscletgr41.9 ??C (98.4 ??F)06/12/2024 8:27 AM ESTRespiratory Dkhx208206/12/2024 8:27 AM ESTOxygen Vjafcysdsr94%06/12/2024 8:27 AM ESTInhaled Oxygen Concentration--Yqkbue10 kg (139 lb)06/12/2024 7:02 AM EST Height--Body Mass Index-- Plan of Treatment Health MaintenanceDue DateLast RhdjCnmtoqhoMoucosffmgn1980Prostate Cancer Screening (shared decision making)1980HIV Test02/01/1995Hepatitis C Cualluvt72/16/1998Tdap Pmduush4302/01/1998Hepatitis A (HAV) Vaccine (optional start 19+ years)02/01/1999Hepatitis B (HBV) Vaccine (1 of 3 - 19+ 3-dose series) 02/01/1999HPV Vaccine (optional start 27-45 years)02/01/2007Welcome to Medicare Visit (G0402)05/30/2024Dental Oral ExamDental Prophylaxis OVID-19 Vaccine (2024- season)2024Influenza Vaccine (#1)/01/2018, 02/10/2017, 02/07/2015, Additional history existsCRC Leymybjto12/16/2025Cologuard (Stool DNA)02/01/2025FIT02/01/2025TSH Dental X-Ray: Aydwxonal75holesterol Shingles (RZV) Vaccine (1 of 2)02/01/2030Pneumococcal Vaccine(s)Aged Out03/04/2020, 10/23/2014No longer eligible based on patient's age to complete this topic Procedures Procedure NamePriorityDate/TimeAssociated DiagnosisCommentsLIMITED EXAMRoutine 12/11/2024 12:00 AM EDTPROPHY ADULT 14 & QDGQPXwkestf55/24/2025 12:00 AM EST COMPREHENSIVE JDNXJbkmkxe90/24/2025 12:00 AM JLAFCDMcfeivh40/14/2025 3:03 PM EST Pre-op evaluation Hypothyroidism, unspecified type from Last 3 Months or Most Recently Relevant to Health Maintenance Results * (ABNORMAL) TSH (06/02/2024 3:03 PM EST)ComponentValueRef RangeTest Method Analysis TimePerformed AtPathologist SignatureTSH0.229(L)0.450 - 5.330 uIU/mL 06/02/2024 4:36 PM ESTS PATHOLOGY LABORATORYSpecimen (Source)Anatomical Location / LateralityCollection Method / VolumeCollection TimeReceived Time BloodBLOOD SPECIMEN / UnknownVenipuncture / Fovpvny2106/02/2024 3:03 PM EST 06/02/2024 3:57 PM EST Narrative Authorizing ProviderResult TypeResult StatusEmpravin Johnson MD98 GENERAL LAB Final ResultPerforming OrganizationAddressCity/State/ZIP CodePhone Number [facility] [address] [place] [address] from Last 3 Months or Most Recently Relevant to Health Maintenance Insurance * Guarantor: Orville Gallegos TypeRelation to PatientDate of BirthPhone Billing AddressDental VivmjyZpyc[address] [address] Care Teams Team MemberRelationshipSpecialtyStart DateEnd Abundio Mares, KETAN [address] [place] [address] PcswyeudDticvdanu89/6/20
--- OUTSIDE RECORDS SUMMARY | 2025-03-01 13:08 | XMS_ITS | Clinical Summary ---
Author Organization [email or web address] tem Address [id number] [place] [address] Care Team Providers Care Belt Fixer Name Role Phone Andreia Kiser Primary Care Provider [phone] Allergies Active AllergyReactionsCriticalityNoted DateCommentsAmoxicillin-Pot Clavulanate 05/12/2016 Unknown reaction Unknown reaction Phenytoin Sodium Snlywkis94/24/2017 Unknown reaction Unknown reaction PvxbsnkmviiuEpuw00/24/2017 Unknown reaction Unknown reaction Medications MedicationSigDispense QuantityRefillsLast FilledStart DateEnd DateStatus tamsulosin (FLOMAX) 0.4 mg capsule tamsulosin 0.4 mg capsuleActive calcium carbonate-vitamin D3 (OSCAL 500 + D) 500 mg(1,250mg) -200 units per tablet Take 1 tablet by mouth in the morning and 1 tablet before bedtime.Active montelukast (SINGULAIR) 10 mg tablet montelukast 10 mg tabletActive melatonin (CIRCADIN) tablet Take 5 mg by mouth nightly.Active omeprazole (PriLOSEC) 20 mg capsule Take 40 mg by mouth.Active OXcarbazepine (TRILEPTAL) 600 mg tablet oxcarbazepine 600 mg tabletActive ipratropium-albuteroL (DUONEB) 0.5 mg-3 mg(2.5 mg base)/3 mL nebulizer Active levETIRAcetam (KEPPRA) 750 mg tablet levetiracetam 750 mg tabletActive levoFLOXacin (LEVAQUIN) 750 mg tablet Active levothyroxine (SYNTHROID, LEVOTHROID) 50 MCG tablet Active levothyroxine (SYNTHROID, LEVOTHROID) 100 MCG tablet levothyroxine 100 mcg tabletActive linaCLOtide (LINZESS) 145 mcg capsule Linzess 145 mcg capsuleActive felbamate (FELBATOL) 400 mg tablet felbamate 400 mg tabletActive fluticasone propionate (FLONASE) 50 mcg/actuation nasal spray fluticasone propionate 50 mcg/actuation nasal spray,suspensionActive glycopyrrolate (ROBINUL) 1 mg tablet glycopyrrolate 1 mg tabletActive diazePAM (DIASTAT ACUDIAL) rectal kit Insert into the rectum.10/22/2021ctive divalproex sprinkle (DEPAKOTE SPRINKLE) 125 mg capsule Take by mouth.10/22/2021ctive docusate sodium (COLACE) 100 mg capsule Take 100 mg by mouth.10/22/2021ctive doxycycline (VIBRAMYCIN) 100 mg capsule Take by mouth.10/22/2021ctive fenofibrate (TRICOR) 145 mg tablet Take by mouth.10/22/2021ctive furosemide (LASIX) 20 mg tablet Take by mouth.10/22/2021ctive magnesium oxide (MAGOX) 400 mg tablet Take by mouth.10/22/2021ctive miconazole nitrate (AISHA ANTIFUNGAL TOP) Apply topically.10/22/2021ctive alendronate (FOSAMAX) 70 mg tablet Take 70 mg by mouth every 7 days. In a.m. with water on empty stomach, nothing else by mouth and remain upright for 30minActive atorvastatin (LIPITOR) 10 mg tablet Take 10 mg by mouth in the morning.Active budesonide (PULMICORT) 0.5 mg/2 mL nebulizer solution Inhale 0.5 mg by nebulization once daily.Active cloBAZam 10 mg film Dissolve 10 mg on tongue 2 (two) times a day.Active ikhmosqd-lxjz-MY-calcium &mins (THERAGRAN-M) 9 mg iron-400 mcg tablet Take 1 tablet by mouth in the morning.Active loratadine (CLARITIN) 10 mg tablet Take 10 mg by mouth in the morning.Active lactulose (CHRONULAC) 10 gram/15 mL solution Take 10 g by mouth 3 (three) times a day.Active ascorbic acid (VITAMIN C) 500 mg tablet Take 500 mg by mouth in the morning.Active rifAXIMin (XIFAXAN) 550 mg tablet Take 550 mg by mouth every 8 (eight) hours.Active Active Problems ProblemNoted DateDiagnosed DateOpen chest wound10/31/2021eizures Social History Tobacco UseTypesPacks/DayYears UsedDateSmoking Tobacco: NeverSmokeless Tobacco: NeverAlcohol UseStandard Drinks/WeekCommentsDefer0 (1 standard drink = 0.6 oz pure alcohol)ChildcareAnswerDate JariianqWyffnxxyuQzuvtte68/11/2019Employment AnswerDate WwxukqagChzlubdhaiMdgdhsu99/11/2019Sex and Gender InformationValue Date RecordedSex Assigned at BirthNot on fileLegal ZhmWjaf9811/20/2014 7:50 PM EDT Gender IdentityNot on fileSexual OrientationNot on file Last Filed Vital Signs Vital SignReadingTime TakenCommentsBlood Tqfuergd760/7008 1:21 PM EDT Jyccd049011/21/2021 1:21 PM NZXApdlgqwjpky09.3 ??C (97.3 ??F)11/04/2021 4:25 PM EDTRespiratory Jceo811711/04/2021 5:15 PM EDTOxygen Otjvuhswpy78%11/04/2021 5:15 PM EDTInhaled Oxygen Concentration--Pjafqd48.1 kg (137 lb)10/31/2021 1:02 PM EDT Height--Body Mass Index-- Plan of Treatment Health MaintenanceDue DateLast DoneCommentsDepression Tkjsmsmqk94/16/1992Tobacco Ztuptgpoi50/16/1992Adult BMI Fifmngade62/16/1998DTaP,Tdap and Td Vaccines (1 - Tdap)02/01/1999Influenza Exwyxjj47/01/2018, 02/10/2017, 02/07/2015, Additional history exists Medical Devices ImplantedTypeAreaManufacturerDevice IdentifierShelf Expiration DateModel / Serial / LotVns Therapy Aspiresr Implanted:Qty: 1 on 09/09/2021 [facility]: [id number] / [id number] / Description:BATTERY EXCHANGE Insurance Advance Directives TypeDate RecordedPatient RepresentativeExplanationLiving Will09/09/2021 7:20 AM DNR Care Teams Team MemberRelationshipSpecialtyStart DateEnd Date Andreia Kiser DO [address] [place] [address] [phone] PCP - GeneralNeurology07/24/21
--- OUTSIDE RECORDS SUMMARY | 2025-03-01 13:08 | XMS_ITS | Clinical Summary ---
Author Organization [facility] Address [address] [place] [id number] Care Team Providers Care Asphalt Plant Operator Name Role Phone Rosario Shaw MD Primary Care Provider Social History Tobacco UseTypesPacks/DayYears UsedDateSmoking Tobacco: Never AssessedSex and Gender InformationValueDate RecordedSex Assigned at BirthNot on fileLegal Sex Male03/20/2012 8:53 AM ESTGender IdentityNot on fileSexual OrientationNot on file Plan of Treatment Not on file Insurance * Guarantor: [place] TypeRelation to PatientDate of BirthPhone Billing AddressPersonal/DobleoMxzo1980 [address] [address] Care Teams Team MemberRelationshipSpecialtyStart DateEnd Rosario Shaw MD [address] [place] [address] [facility] - General07/28/00
--- OUTSIDE RECORDS SUMMARY | 2025-03-01 13:11 | XMS_ITS | CCD ---
Author Organization [facility] Care Team Providers Care Loom Operator Name Role Phone FAM ACEVEDO Primary Care [...] DR FAM Duran Consulting Unavailable ACEVEDO, DR AFM Duran Primary Care Unavailable ACEVEDO, DR FAM [...] Redd Consult[employer] Unavailable SHARMILA .ANJELICA Consulting Unavailable SHRAMILA .ANJELICA Attending Unavailable ACEVEDO, DR FAM Duran [...] Mares DDS Unavailable Fam Acevedo MD Unavailable [phone] Unallocated , [place] Provider Primary Care Provi [...] Attending Provider Antionette Castaneda APRN Attending Provider Allergies Allergy ClassificationReported Allergen(s)Allergy TypeDate of OnsetReaction(s) Facility (8 sources)Amoxicillin / Clavulanate; Translations: [amoxicillin-clavulanate] Drug AllergyUnknownExec[facility] ([facility])Phenytoin; Translations: [phenytoin]Drug Cocveeu33-21-6988Ibrvwel [facility] (20 sources)Promethazine; Translations: [promethazine]Drug Zqgbual99-72-0069 [facility] ([facility] sources)Phenytoin; Translations: [PHENYTOIN SODIUM EXTENDED]Drug Allergy 06-01-9295RnsirnoFcqquAyyvfr (19 sources)Amoxicillin-Pot Clavulanate; Translations: [AMOXICILLIN-POT CLAVULANATE]Propensity to adverse reactions to dceb61-41-4524WskkxjuVyjseTdxxvr (8 sources)4-Aminobenzoic Acid; Translations: [PERTUSSIS VACCINES]Drug Allergy 92-50-2013Rql [facility] (1 source)Amoxicillin / ClavulanateDrug Hdmokka22-47-2908Bia [facility] (1 source)LevamisoleDrug Dsmuycq61-64-9506Ykv [facility] (1 source)metroNIDAZOLEDrug AllergyThe [facility] (1 source)PhenytoinDrug Rjqbfep97-74-0147Gov [facility] (1 source)remdesivir (investigational use)Drug allergy (disorder)[facility] (11 sources)AmoxicillinDrug Qruhgff30-69-5507CmvlnxnUltfopkxrGerman Hospital (7 sources)ClavulanateDrug Puappbi83-44-9037CktfsrgEccwpiffxGerman Hospital Medications Current Medications MedicationDrug Class(es)DatesSig (Normalized)Sig (Original)albuterol 0.833 mg/ml / ipratropium bromide 0.167 mg/ml inhalation solution (14 sources)Anticholinergic, beta2-Adrenergic AgonistStart: 37-84-0859jicw 1 mL by inhalation three times dailyIpratropium-Albuterol 0.5 mg-3 mg(2.5 mg base)/3 mL solution for nebulization Active 3 ML INHALATION Three times daily March 28, 2020 1:00am Complies with drug therapyStart: 91-86-8840xnhj 3 mL by inhalation three times dailyIpratropium-Albuterol 0.5-2.5 (3) MG/3ML 3 ml Inhalation Three times a day Dec, ActiveAlbuterol Sulfate (2.5 MG/ 3 ML) 2.5 MG/3ML 0.083% Nebulization Solution (3 sources)Start: 34-09-0916Yrcqpdemb Sulfate (2.5 MG/ 3 ML) 2.5 MG/3ML 0.083% Nebulization Solution 3ml Inhalation qid as needed Apr, Activealendronic acid 70 mg oral tablet (20 sources)BisphosphonateStart: 07-04-2015 End: 12-17-3803ndnk 1 tablet by mouth every weekAlendronate 70 mg tablet Active 70 MG PO every week March 28, 2020 1:00am Complies with drug therapyStart: 42-97-9408ebatopmsrsz Tab 70 mg, Oral, Wednesday, Refills(s) 0, Other (see comment) Start Date: 07/04/15 Status:Orderedtake 1 tablet by mouth once daily alendronate (Fosamax) 70 MG tablet 1 tablet 30 minutes before the first food, beverage or medicine of the day with plain water Orally ActiveAllergy Relief (4 sources)Start: 91-50-8810iefa 50 mg by mouth once dailyAllergy Relief 50 mg, Oral, Daily, Refills(s) 0, Allergy symptoms Start Date: 07/04/15 Status: Ordered Artificial Tears preserved ophthalmic solution (4 sources)Start: 35-83-0007Zlfzamwhul Tears preserved ophthalmic solution Eye- Both, QID, Refill(s) 0 Start Date: 10/22/21 Status: OrderedAscorbic Acid (12 sources)Vitamin CStart: 06-96-8147Cwreonr C Daily, Refills(s) 0 Start Date: 10/22/21 Status: OrderedStart: 03-28-2020 End: 94-63-5686pqnh 1 tablet by mouth twice dailyAscorbic Acid (Vitamin C) (Vitamin C) 500 mg Tablet Discontinued 500 MG PO Twice daily March 28, 2020 1:00am July 06, 2023 10:23amtake 1 tablet by mouth every twenty-four hours Vitamin C 500 MG 1 tablet Orally Once a day Activeatorvastatin 10 mg oral tablet (20 sources)HMG-CoA Reductase InhibitorStart: 41-56-7531uvbc 1 tablet by mouth once daily at bedtimeAtorvastatin 10 mg tablet Active 10 MG PO Daily at bedtime March 28, 2020 1:00am Complies withdrug therapyazelastine hydrochloride 0.137 mg/actuat metered dose nasal spray (10 sources)Histamine-1 Receptor AntagonistStart: 30-88-7461vvre 1 puff(s) nasal route twice dailyAzelastine 137 mcg (0.1 %) aerosol,spray Active 1 PUFF INTRANASAL Twice daily June 28, 2023 12:00am FreeTextSi puff in each nostril Nasally Twice a day; Note: Source Status: Taking; Provider: Leonel Adan ( ) Complies with drug therapyStart: 72-52-7467osrshqpymm nasal 137 mcg/inh spray 2 spray(s), Nasal, As Directed Allergy symptoms, Refill(s) 0, Allergy symptoms Start Date: 07/04/15 Status: Orderedtake 1 puff(s) nasal route twice dailyAzelastine HCl 137 MCG/SPRAY 1 puff in each nostril Nasally Twice a day Activeazelastine nasal 137 mcg/inh spray (2 sources)Start: 21-99-1396qarfamgkgo nasal 137 mcg/inh spray 2 spray(s), Nasal, As Directed Allergy symptoms, Refill(s) 0, Allergy symptoms Start Date: 07/04/15 Status: OrderedEnemeez Plus (4 sources)Standardized Chemical AllergenStart: 71-22-0615Rqgqzhb Plus 1 coleen, Rectal, Daily as needed for constipation, Refill(s) 0 Start Date: 07/05/15 Status : Orderedbenzonatate 100 mg oral capsule (8 sources)Non-narcotic AntitussiveStart: 85-09-7857xiyq 1 capsule by mouth every eight hours as needed for coughBenzonatate 100 mg Capsule Active 100 MG PO Q8H as needed for Cough March 28, 2020 1:00am Complies with drug therapy take 1 capsule by mouth every eight hoursBenzonatate 100 MG 1 capsule as needed Orally Three times a day Activebudesonide 0.25 mg/ml inhalation suspension (20 sources)CorticosteroidStart: 47-39-4920hkrk 0.5 mg by inhalation twice daily Budesonide (Pulmicort) 0.5 mg/2 mL suspension for nebulization Active 0.5 MG INHALATION Twice dailyMarch 2023 12:00am Complies with drug therapyStart: 24-19-3884mkdm 0.5 mg by inhalation twice dailybudesonide 0.5 mg/2 mL Inh Susp 0.5 mg = 2 mL, NEB, BID, # 120 mL, Refills(s) 0 Start Date: 12/16/22Status: Orderedtake 2 mL by inhalation twice dailyPulmicort 0.5 MG/2ML 2 ml Inhalation Twice a day Activecalcium carbonate 1250 mg / cholecalciferol 200 unt oral tablet (12 sources)Vitamin DStart: 31-07-8088ugeu 1 tablet by mouth twice dailyCalcium Carbonate-Vitamin D3 (Oyster Shell Calcium-Vit D3) 500 mg(1,250mg) -200 unit Tablet Active 1 TAB PO Twice daily March 28, 2020 1:00am Complies with drug therapytake 1 tablet by mouth in the morning, then take 1 tablet by mouth once in the eveningCalcium Carb-Cholecalciferol (Oyster Shell Calcium w/D) 500-5 MG- MCG tablet Take 1 tablet by mouth in the morning and 1 tablet in the evening. Activetake 1 tablet by mouth every twenty-four hoursOyster Shell Calcium + D 500-200 MG-UNIT 1 tablet with food Orally Once a day Activecholecalciferol 0.125 mg oral capsule (6 sources)Vitamin Dtake 1 capsule by mouth once dailyCholecalciferol (Vitamin D3) 125 MCG (5000 UT) CAPS Take 125 mcg by mouth daily. ActivecloBAZam 10 mg oral tablet (20 sources)BenzodiazepineStart: 07-04-2015 End: 99-12-8828mres 1 tablet by mouth twice dailyClobazam 10 mg tablet Active 10 MG PO Twice daily March 28, 2020 1:00am Complies with drug therapy clonazePAM 0.25 mg disintegrating oral tablet (14 sources)BenzodiazepineStart: 54-74-9444Kzupkepydg 0.25 mg Tablet,Disintegrating Active 0.25 MG TRANSLINGU Twice daily as needed for Cluster of 5 seizures March 28, 2020 1:00am Complies with drug therapy Start: 20-25-3757Spdkuhddkv Active 0.25 MG TRANSLINGU Twice daily March 28, 2020 1:00amCough and Chest Congestion (4 sources)Start: 39-33-6653Eshln and Chest Congestion Refill(s) 0 Start Date: 10/22/21 Status: Ordered1 ml denosumab 60 mg/ml prefilled syringe (6 sources)RANK Ligand Inhibitordenosumab (Prolia) 60 MG/ML injection Inject 60 mg under the skin. Every 6 months ActivediazePAM 10 mg oral tablet (20 sources)BenzodiazepineStart: 56-40-4180inti 1 mg rectal route onceDiastat AcuDial adult mg, Rectal, Once, Refills(s) 0 Start Date: 10/22/21 Status: Ordered Start: 03-28-2020 End: 61-75-5824ldrv 1 tablet rectal route every two hours as neededDiazepam 10 mg tablet Active 5 MG PO Q2H as needed for 3 or more seizures July 06, 2023 10:24am 10MG RECTAL GEL, PATIENT TAKES IT ND - wont let me save without route. Complies with drug therapyStart: 03-28-2020 End: 92-13-1898zarvc 10 mg rectal route every two hoursDiazepam Active 5 MG PO Q2H July 06, 2023 10:24am 10MG RECTAL GEL, PATIENT TAKES IT ND - wont let me save without route.Start: 39-21-7452kdikcuha 10 mg, Rectal, PRN Seizure, Refills(s) 0 Start Date: 07/05/15 Status: OrdereddiazePAM (DIASTAT) 10 MG rectal gel Insert 1 Each in the rectum as needed for Other (for 3 or more seizures in 2 hours; may repeat in 2 hours as needed). Activedocusate sodium 100 mg oral capsule (20 sources)Start: 22-94-6461tbnl 1 capsule by mouth twice daily as needed for constipationdocusate sodium 100 mg Cap 100 mg = 1 cap(s), Oral, BID, PRN for constipation, # 20 cap(s), Refills(s) 0 Start Date: 10/22/21 Status: OrderedStart: 57-06-8361uzcb 2 capsules by mouth once daily in the morningDocusate Sodium 100 mg Capsule Active 200 MG PO Every morning March 28, 2020 1:00am Complies wi th drug therapyStart: 22-08-2631xcct 200 mg by mouth once daily in the morning Docusate Sodium Active 200 MG PO Every morning March 28, 2020 1:00amtake 1 capsule by mouth every twenty-four hoursDocusate Sodium 100 MG 1 capsule as needed Orally Once a day Activedoxycycline hyclate 100 mg oral capsule (4 sources)Tetracycline-class DrugStart: 68-10-3919kksm 1 mg by mouth twice dailydoxycycline hyclate 100 mg Cap mg cap(s), Oral, BID, Refills(s) 0 Start Date: 10/22/21 Status: OrderedErythromycin (4 sources)Macrolide, Macrolide AntimicrobialStart: 59-15-4317asnlcrpksnvj topical Rash, Refill(s) 0, tid to rash as needed Start Date: 07/05/15 Status: Orderedfelbamate 400 mg oral tablet (20 sources)Anti-epileptic AgentStart: 02-23-2020 End: 02-54-6973ibzw 1 tablet by mouth three times dailyFelbamate 400 mg tablet Active 400 MG PO Three times daily March 28, 2020 1:00am Complies withdrug therapyfelbamate (Felbatol) 400 MG tablet 1 (one) time each day at the same time Activefenofibrate 145 mg oral tablet (16 sources)Peroxisome Proliferator Receptor alpha AgonistStart: 59-42-3974dylg 1 mg by mouth once dailyfenofibrate 145 mg Tab mg tab(s), Oral, Daily, Refills(s) 0 Start Date: 10/22/21 Status: Orderedfluticasone furoate 0.05 MG/ACTUAT Dry Powder Inhaler (20 sources)CorticosteroidStart: 78-22-7437vwubtwvwqin furoate 50 mcg inhalation powder Inhalation, q24hr, Refills(s) 0 Start Date: 10/22/21 Status: OrderedStart: 02-70-3014Wlczyfgkdsn Propionate 50 mcg/actuation spray,suspension Active 2 SPRAY INTRANASAL Daily March 28, 2020 1:00am Complies with drug therapy Start: 02-26-2020 End: 96-00-0711jgrbkbbsdsq (FLONASE) 50 mcg/act nasal inhaler 02/26/2020 06/02/2024 Discontinued (Duplicate (*won't e-cancel))take 2 spray(s) nasal route once dailyfluticasone (FLONASE) 50 mcg/act nasal inhaler Use 2 Sprays in each nostril daily. Activetake 2 spray(s) nasal route once dailyfluticasone (Flonase) 50 MCG/ACT nasal spray USE 2 SPRAYS IN EACH NOSTRIL ONCE DAILY FLONASE Active take 1 spray(s) nasal route once dailyFluticasone Propionate 50 MCG/ACT 1 spray in each nostril Nasally Once a day Activefurosemide 20 mg oral tablet (20 sources)Loop DiureticStart: 02-23-2020 End: 60-96-8799fcew 1 tablet by mouth once dailyFurosemide 20 mg tablet Active 20 MG PO Daily March 28, 2020 1:00am Complies with drug therapy glycopyrrolate 1 mg oral tablet (20 sources)Start: 93-60-0058lwjd 1 tablet by mouth three times daily glycopyrrolate 1 mg oral tablet mg tab(s), Oral, TID, Refills(s) 0 Start Date: 10/22/21 Status: OrderedStart: 32-83-0533nsyk 1 tablet by mouth twice daily Glycopyrrolate 1 mg tablet Active 1 MG PO Twice daily March 28, 2020 1:00am Complies with drugtherapyguaiFENesin 400 mg oral tablet (6 sources)Start: 99-04-6182tqdfbundvlg 400 mg oral tablet Refills(s) 0 Start Date: 12/16/22 Status: OrderedStart: 05-71-0713aonb 1 tablet by mouth twice daily, then take 1 tablet by mouth every twelve hoursGuaifenesin (Mucinex) 600 mg Tablet Extended Release 12hr Active 600 MG PO Twice daily March 28, 2020 1:00am Complies with drug therapyhydrocortisone 25 mg/ml rectal cream (1 source)CorticosteroidStart: 71-79-4489uepoxkufqwtnmr 2.5% Rectal Crm w/Appl 1 coleen, Rectal, BID, 30 gram, Refill(s) 0 Start Date: 12/16/22 Status: Ordered Ipratropium (5 sources)AnticholinergicStart: 73-85-9945kdcisbdsvvf mcg, QID Start Date: 12/16/22 Status: OrderedStart: 50-38-2191ktnu 1 ug by inhalation four times daily ipratropium 0.02% inhalation solution mcg mL, NEB, QID, Refills(s) 0 Start Date: 10/22/21 Status: OrderedStart: 54-43-6580jazx 1 ug by inhalation four times daily ipratropium 0.02% inhalation solution mcg mL, NEB, QID, Refills(s) 0 Start Date: 10/22/21 Status: Orderedketoconazole 20 mg/ml topical cream (9 sources)Azole AntifungalStart: 62-13-5861Jasouyqxoava 2 % Cream Active 1 APPLIC TOPICAL Twice daily as needed for Groin Rash March 28, 2020 1:00am Complies with drug therapyStart: 33-51-1724Hoxitcjspxge Active 1 APPLIC TOPICAL Twice daily March 28, 2020 1:00amlactulose 667 mg/ml oral solution (20 sources)Osmotic LaxativeStart: 01-80-5178Wwnxuaq 10 g/15 mL oral and rectal liquid gm mL, Refills(s) 0 Start Date: 10/22/21 Status: OrderedStart: 03-28-2020 take 1 mL by mouth four times dailyLactulose 10 gram/15 mL solution Active 60 ML PO Four times daily March 28, 2020 1:00am Complies with drug therapyStart: 02-19-2020 End: 68-12-7826muufqqniz 10 g/15 mL oral solution 02/19/2020 06/02/2024 Discontinued (Duplicate (*won't e-cancel))Start: 82-28-8269tigeceorb 40 gram, Oral, QID, Refills(s) 0, Other (see comment) Start Date: 07/04/15 Status: Ordered Lactulose Encephalopathy (Enulose) 10 GM/15ML SOLN Take by mouth. 90 mL at 8am, 12pm and 8pm Activetake 15 mL by mouth once dailyLactulose 10 GM/15ML 15 ml Orally Once a day ActivelevETIRAcetam 750 mg oral tablet (20 sources)Start: 17-76-5106dlui 2 tablets by mouth twice dailyLevetiracetam 750 mg tablet Active 1500 MG PO Twice daily March 28, 2020 1:00am Complies with drug therapyStart: 11-15-4395zovf 1500 mg by mouth twice dailyLevetiracetam Active 1500 MG PO Twice daily March 28, 2020 1:00amStart: 07-04-2015 End: 07-26-7256szogqgdnaauwv (KEPPRA) 750 MG tablet 02/23/2020 06/02/2024 Discontinued (Duplicate (*won't e-cancel))take 1 tablet by mouth at bedtime levETIRAcetam (Keppra) 500 MG tablet Take 500 mg by mouth at bedtime. Activetake 2 tablets by mouth in the morning, then take 3 tablets by mouth at bedtime levETIRAcetam 500 mg 2 tablet in am and 3 tabs at hs Orally As Directed Active levothyroxine sodium 0.1 mg oral tablet (20 sources)l-ThyroxineStart: 91-30-9988Jqghmgfmostph 100 mcg tablet Active 150 MCG PO Daily June 28, 2023 1:10pm Complies with drug therapyStart: 06-28-2023 take 150 ug by mouth once dailyLevothyroxine Active 150 MCG PO Daily June 28, 2023 1:10pmStart: 95-95-7741gdfjseamirywi (Synthroid, Levoxyl) 150 MCG tablet 11/10/2022 ActiveStart: 02-23-2020 End: 81-40-7626auul 1 tablet by mouth once daily at bedtimeLevothyroxine 100 mcg tablet Discontinued 100 MCG PO Daily at bedtime March 28, 2020 1:00am June 28, 2023 1:21pmStart: 02-23-2020 End: 78-39-8523zmws 1 tablet by mouth once daily at bedtimeLevothyroxine 50 mcg tablet Discontinued 50 MCG PO Daily at bedtime March 28, 2020 1:00am June 28, 2023 1:11pmStart: 45-18-0053zwxinkyfizhcm 150 microgram, Oral, Daily, Refills(s) 0, Thyroid Start Date: 07/04/15 Status: Orderedtake 1 tablet by mouth every twenty-four hoursLevothyroxine Sodium 150 MCG 1 tablet Orally Once a day Activelinaclotide 0.145 mg oral capsule (20 sources)Guanylate Cyclase-C AgonistStart: 99-23-7377Lrtmhsx 145 mcg oral capsule Start Date: 12/16/22 Status: OrderedStart: 02-23-2020 End: 98-75-7941jnuv 1 capsule by mouth once daily in the morningLinaclotide (Linzess) 145 mcg capsule Active 145 MCG PO Every morning March 28, 2020 1:00am Complies with drug therapyStart: 38-03-6429Fktmgqi 145 microgram, Oral, Daily, PRN Constipation, Refills(s) 0 Start Date: 07/05/15 Status: OrderedLinzess 145 145mcg 1 PO Every AM Activeloratadine 10 mg oral tablet (7 sources)Start: 75-45-7499cqphxlhtpn 10 mg Tab Start Date: 12/16/22 Status: Fvhylqw11 hr loratadine 10 mg / pseudoephedrine sulfate 240 mg extended release oral tablet (13 sources)alpha-Adrenergic AgonistStart: 03-28-2020 End: 15-55-4089rkvq 1 tablet by mouth once daily as needed, then take 1 tablet by mouth every twenty-four hours asneededLoratadine-Pseudoephedrine (Allergy Relief D-24hr) 10-240 mg tablet extended release 24 hr Active 1TAB PO Daily as needed June 28, 2023 12:00am Complies with drug therapymagnesium oxide 400 mg oral tablet (20 sources)Start: 44-20-1601prgm 1 tablet by mouth once dailyMagnesium Oxide 400 mg magnesium Tablet Active 400 MG PO Daily March 28, 2020 1:00am Complies with drug therapytake 1 tablet by mouth once dailyMagnesium Oxide (MAG- OX 400 ORAL) Take 1 Tablet by mouth daily. Activemelatonin 5 mg oral tablet (9 sources)Start: 29-11-6053apra 1 tablet by mouth once daily at bedtime Melatonin 5 mg Tablet Active 5 MG PO Daily at bedtime March 28, 2020 1:00am Complies with drugtherapymetoprolol tartrate 50 mg oral tablet (8 sources)beta-Adrenergic BlockerStart: 45-88-7506pezn 1 tablet by mouth twice dailyMetoprolol Tartrate 50 mg tablet Active 1 TAB PO Twice daily June 28, 2023 12:00am FreeTextSi tablet Orally Twice a day; Note: Source Status: Taking; Provider: Leonel Adan ( ) Complies with drug therapytake 1 tablet by mouth every twelve hoursMetoprolol Tartrate 50 MG 1 tablet Orally Twice a day ActiveMiconazole (3 sources)Azole AntifungalStart: 87-04-4311Irdw Antifungal Topical, BID, Refill(s) 0 Start Date: 10/22/21 Status: Orderedmontelukast 10 mg oral tablet (18 sources)Leukotriene Receptor AntagonistStart: 97-23-8955lhcb 1 tablet by mouth once daily at bedtimeMontelukast 10 mg tablet Active 10 MG PO Daily at bedtime March 28, 2020 1:00am Complies with drug therapyMultivitamin preparation (5 sources)Start: 64-41-3762uhpw 1 tablet by mouth once dailyMultivitamin Active 1 TAB PO Daily March 28, 2020 1:00amMultivitamin Orally ActiveMultivitamin Tablet (3 sources)Start: 60-41-0632wyxw 1 tablet by mouth once dailyMultivitamin Tablet Active 1 TAB PO Daily March 28, 2020 1:00am Complies with drug therapy Start: 14-48-4385tyiy 1 tablet by mouth once dailyStart: 54-16-8920kbpw 1 tablet by mouth once dailyMultivitamin Tablet Active 1 TAB PO Daily March 28, 2020 1:00ammultivitamin with iron (4 sources)Start: 79-65-3945knykeftzjdfr with iron mL, Refill(s) 0 Start Date: 10/22/21 Status: Orderedmupirocin 0.02 mg/mg topical ointment (3 sources)RNA Synthetase Inhibitor AntibacterialStart: 93-87-7813mijvxqgqm Top 2% Oint Topical, TID, Refill(s) 0 Start Date: 10/22/21 Status: OrderedNormal saline (7 sources)Start: 03-70-3873Ksd Saline Nasal Gel Nasal, TID, Refill(s) 0, Dry nasal passages Start Date: 07/05/15 Status: OrderedAyr Saline Nasal Gel Nasally ActiveNutritional Supplements (boost) (6 sources)Nutritional Supplements (boost) Take by mouth. 1 can tid Active omeprazole 40 mg delayed release oral capsule (20 sources)Proton Pump InhibitorStart: 02-23-2020 End: 59-50-0124zlcs 1 capsule by mouth once dailyOmeprazole 40 mg capsule,delayed release(DR/EC) Active 40 MG PO Daily March 28, 2020 1:00am Complies with drug therapyOXcarbazepine 600 mg oral tablet (20 sources)Anti-epileptic AgentStart: 76-58-3493Jtwbxrswrksqp 600 mg tablet Active 300 MG PO Twice daily June 28, 2023 1:14pm Complies with drugtherapy Start: 40-44-7042muce 300 mg by mouth twice dailyOxcarbazepine Active 300 MG PO Twice daily June 28, 2023 1:14pmStart: 02-23-2020 End: 17-32-6900mmob 1 tablet by mouth twice dailyOxcarbazepine 300 mg tablet Discontinued 300 MG PO Twice daily March 28, 2020 1:00am June 28, 2023 1:22pmStart: 02-23-2020 End: 74-91-7709bcqh 1 tablet by mouth twice dailyOxcarbazepine 600 mg tablet Discontinued 600 MG PO Twice daily March 28, 2020 1:00am June 28, 2023 1:21pmStart: 66-20-2610zpic 300 mg by mouth once dailyTrileptal 300 mg, Oral, Daily, Refills(s) 0, Seizure Start Date: 07/05/15 Status: OrderedOyster Shell Calcium + D 500-200 MG-UNIT (2 sources)take 1 tablet by mouth once daily at mealtimeOyster Shell Calcium + D 500-200 MG-UNIT 1 tablet with food Orally Once a day ActiveOyster Shell Calcium with Vitamin D (4 sources)Start: 35-29-8380Tclcuz Shell Calcium with Vitamin D Refill(s) 0, 1 tab bid, Prophylaxis Start Date: 07/05/15 Status:VrlitkyEAF2029 oral powder for reconstitution (1 source)Start: 07-46-9736WTZ3572 oral powder for reconstitution Start Date: 12/16/22 Status: OrderedrifAXIMin 550 mg oral tablet (7 sources)Rifamycin AntibacterialStart: 59-46-5986cxlg 1 tablet by mouth twice dailyXifaxan 550 mg oral tablet 550 mg = 1 tab(s), Oral, BID, # 60 tab(s) Start Date: 12/16/22 Status: OrderedSenna Leaves (4 sources)Start: 99-42-1205Igvxy 8.6 mg oral tablet 17.2 mg, 2 tab(s), Oral, Once a day (at bedtime) for constipation, 100 tab(s), Refill(s) 0 Start Date: 10/22/21 Status: Orderedsennosides, senior care 8.6 mg oral tablet (11 sources)Start: 43-02-8007qpvp 2 tablets by mouth twice daily as needed Sennosides (Senna) 8.6 mg Tablet Active 17.2 MG PO Twice daily as needed for No BM in 4 Days March 28, 2020 1:00am Complies with drug therapytake 1 tablet by mouth twice daily as needed for constipationsenna (SENOKOT) 8.6 MG tablet Take 1 Tablet by mouth 2 times daily as needed for Constipation. Active sertraline 25 mg oral tablet (8 sources)Serotonin Reuptake InhibitorStart: 21-04-9913jnmf 1 tablet by mouth once dailySertraline 25 mg tablet Active 25 MG PO Daily June 28, 2023 12:00am Complies with drug therapytake 1 tablet by mouth every twenty-four hours Sertraline HCl 25 MG 1 tablet Orally Once a day ActiveSodium Chloride-Aloe Vera ([place] Saline) gel (5 sources)Start: 62-06-0423Wvfnxc Chloride-Aloe Vera ([place] Saline) gel Active 1 APPLIC TOPICAL Daily at bedtime as needed 2023 12:00am Complies with drug therapyStart: 49-79-8903Zvmle: 80-56-0198Xkmdff Chloride-Aloe Vera ([place] Saline) gel Active 1 APPLIC TOPICAL Daily at bedtime as needed 2023 12:00amStart: 05-65-9980Ryebgm Chloride-Aloe Vera ([place] Saline) gel Active 1 APPLIC TOPICAL Daily at bedtime June 28, 2023 12:00amtamsulosin hydrochloride 0.4 mg oral capsule (18 sources)alpha-Adrenergic BlockerStart: 08-65-2117rubk 1 capsule by mouth once dailyTamsulosin 0.4 mg capsule Active 0.4 MG PO Daily March 28, 2020 1:00am Complies with drug therapyVitamin D3 5000 intl units oral capsule (1 source)Start: 96-92-6824Uadmepm D3 5000 intl units oral capsule Start Date: 12/16/22 Status: Ordered Completed/Discontinued Medications MedicationDrug Class(es)DatesSig (Normalized)Sig (Original)acetaminophen 325 mg oral tablet (15 sources)Start: 06-12-2024 End: 48-76-0124808 mg, Oral, PACU ONCE PRN, Starting on Wed06/12/24 at 0652, Until Wed06/12/24 at 1045, Mild Pain (pain score 1,2,3), PACU NowStart: 58-46-4551axffduinqwpgu Refills(s) 0 Start Date: 12/16/22 Status: OrderedStart: 22-50-8734Wgjmuwsdhvxmo 650 mg Suppository Active 650 MG ND EVERY 4-6 HOURS as needed for Elevated Temp March 28, 2020 1:00am Complies with drug therapy Start: 66-44-5739Gkssrqttljwij Active 650 MG ND EVERY 4-6 HOURS March 28, 2020 1:00amStart: 03-28-2020 End: 71-17-3662ynvf 2 tablets by mouth every four to six hours as needed Acetaminophen 325 mg Tablet Discontinued 650 MG PO EVERY 4-6 HOURS as needed for Elevated Temp or Generak Disco March 28, 2020 1:00am July 06, 2023 9:30amStart: 03-28-2020 End: 08-17-1534qiiz 650 mg by mouth every four to six hoursAcetaminophen Discontinued 650 MG PO EVERY 4-6 HOURS March 28, 2020 1:00am July 06, 2023 9:30amtake 1 tablet by mouth every six hours as neededAcetaminophen 325 MG 1 tablet as needed Orally every 6 hrs Activeacetylcysteine 100 mg/ml inhalation solution (5 sources)Antidote, Mucolytic, Antidote for Acetaminophen OverdoseStart: 03-28-2020 End: 98-46-5922sect 100 mg by inhalation every four hoursAcetylcysteine 100 mg/mL (10 %) solution Discontinued 2 ML INHALATION Q4H March 28, 2020 1:00am July 06, 2023 10:22amStart: 03-28-2020 End: 69-67-5276idae 1 mL by inhalation every four hoursAcetylcysteine Discontinued 2 ML INHALATION Q4H March 28, 2020 1:00am July 06, 2023 10:22amalbuterol 0.83 mg/ml inhalation solution (20 sources)beta2-Adrenergic AgonistStart: 06-12-2024 End: .5 mg, Nebulization, PACU ONCE PRN, Starting on Wed06/12/24 at 0652, Until Wed06/12/24 at 1045, Wheezing, PACU NowStart: 91-94-4160zhgs 2.5 mg by inhalation four times daily as needed for chronic obstructive pulmonary diseaseAlbuterol Sulfate 2.5 mg /3 mL (0.083 %) solution for nebulization Active 2.5 MG INHALATION Four times daily as needed for COPD June 28, 2023 1:17pm Complies with drug therapyStart: 03-28-2020 End: 36-67-1418pexg 2.5 mg by inhalation every six hours as needed for chronic obstructive pulmonary diseaseAlbuterol Sulfate 2.5 mg /3 mL (0.083 %) Solution For Nebulization Discontinued 2.5 MG INHALATION Q6H as needed for COPD March 28, 2020 1:00am June 28, 2023 1:21pmStart: 03-28-2020 End: 72-06-6240vfjh 2.5 mg by inhalation every two hours as neededAlbuterol Sulfate 2.5 mg /3 mL (0.083 %) Solution For Nebulization Discontinued 2.5 MG INHALATION Q2H as needed for Shortness Of Breath March 28, 2020 1:00am June 28, 2023 1:17pmStart: 26-08-5974spidszfga 0.083% Inh Cassie 3 mL UD Inhalation, As Directed Shortness of breath or wheezing, Refill(s)0, Shortness of breath or wheezing Start Date: 07/04/15 Status: OrderedStart: 07-04-2015 albuterol 0.083% Inh Cassie 3 mL UD Inhalation, As Directed Shortness of breath or wheezing, Refill(s)0, Shortness of breath or wheezing Start Date: 07/04/15 Status: Orderedalbuterol (PROVENTIL) (2.5 MG/3ML) 0.083% nebulizer solution Use 2.5 mg via nebulizer every 4 hoursas needed for Wheezing. Active2 ml amisulpride 2.5 mg/ml injection (1 source)Start: 06-12-2024 End: 36-06-3550ftbj 10 mg intravenously once as needed for mg, Intravenous Push, PACU ONCE PRN, Starting on Wed06/12/24 at 0652, Until Wed06/12/24 at 1045,post operative nausea or vomiting, PACU Nowclindamycin 300 mg oral capsule (7 sources)Lincosamide AntibacterialStart: 02-29-2020 End: 21-00-0508dmlo 1 capsule by mouth three times dailyclindamycin (CLEOCIN) 300 MG capsule TAKE 1 CAPSULE BY MOUTH 3 TIMES DAILY FOR 7 DAYS. 21 Capsule 06/02/2024 DiscontinuedlevoFLOXacin 750 mg oral tablet (5 sources)Quinolone AntimicrobialStart: 03-28-2020 End: 31-75-4848etqm 1 tablet by mouth once dailyLevofloxacin 750 mg tablet Discontinued 750 MG PO Daily March 28, 2020 1:00am June 2741:09pm1 ml naloxone hydrochloride 0.4 mg/ml injection (1 source)Opioid AntagonistStart: 06-12-2024 End: 50.4 mg, Intravenous Push, PRN, Starting on Wed06/12/24 at 0652, Until Wed06/12/24 at 1045, Respiratory Rate Less Than 8 for adults and less than 12 for Peds or for suspected overdose, PACU NowoxyCODONE hydrochloride 5 mg oral tablet (1 source)Opioid AgonistStart: 06-12-2024 End: 02-24-26391 mg, Oral, PRN, 1 dose, Starting on Wed06/12/24 at 0652, Until Wed06/12/24 at 1045, Moderate Pain (pain score 4,5,6), PACU Nowpolyethylene glycol 3350 51707 mg powder for oral solution (12 sources)Osmotic LaxativeStart: 07-05-2015 End: 94-43-6052Buqxcztuwzhx Glycol 3350 (Clearlax) 17 gram/dose Powder Discontinued 17 GM PO Daily March 28, 2020 1:00am July 06, 2023 10:26am Polyethylene Glycol 3350 (Clearlax) 17 gram/dose Powder (3 sources)Start: 03-28-2020 End: 46-44-0969Rihmngeyfioc Glycol 3350 (Clearlax) 17 gram/dose Powder Discontinued 17 GM PO Daily March 28, 2020 1:00am July 06, 2023 10:26am Start: 56-08-2833Awjcakwicvvp Glycol 3350 (Clearlax) 17 gram/dose Powder Active 17 GM PO Daily March 28, 2020 1:00ampredniSONE 20 mg oral tablet (5 sources)Start: 03-28-2020 End: 97-76-7630thru 1 tablet by mouth once dailyPrednisone 20 mg tablet Discontinued 20 MG PO Daily March 28, 2020 1:00am July 06, 2023 10:26am 20 ml sodium chloride 9 mg/ml injection (1 source)Start: 06-12-2024 End: mL, Intravenous Push, PRN, Starting on Wed06/12/24 at 0652, Until Wed06/12/24 at 1045, For medication administration and blood draw, PACU NowSodium Chloride-Aloe Vera (Saline Nasal (Aloe Vera)) Gel (5 sources)Start: 03-28-2020 End: 85-14-1103Yadlck Chloride-Aloe Vera (Saline Nasal (Aloe Vera)) Gel Discontinued 2 APPLIC INTRANASAL Three times daily March 28, 2020 1:00am June 28, 2023 1:23pmdivalproex sodium 125 mg delayed release oral capsule (20 sources)Mood Stabilizer, Anti-epileptic AgentStart: 06-28-2023 End: 93-40-6805sdge 2 capsules by mouth twice dailyDivalproex 125 mg capsule, delayed rel sprinkle Discontinued 250 MG PO Twice daily June 2741:06pm June 28, 2023 1:22pmStart: 06-28-2023 End: 71-83-7027lcpm 250 mg by mouth twice dailyDivalproex Discontinued 250 MG PO Twice daily June 28, 2023 1:06pm June 28, 2023 1:22pmStart: 02-23-2020 End: 95-19-3869gfzy 1 tablet by mouth twice dailyDivalproex 250 mg tablet,delayed release (DR/EC) Active 250 MG PO Twice daily June 28, 2023 1:07pm Complies with drug therapyStart: 02-23-2020 End: 79-75-7234vaki 1 capsule by mouth twice dailyDivalproex 125 mg capsule, delayed rel sprinkle Discontinued 125 MG PO Twice daily March 28, 2020 1:00am June 28, 2023 1:21pmStart: 06-97-8572aasr 1 mg by mouth three times dailydivalproex sodium 125 mg Cap-EC mg cap(s), Oral, TID, Refills(s) 0 Start Date: 10/22/21 Status: OrderedStart: 02-23-2020 End: 06-73-7847ycbw 1 tablet by mouth three times dailyDivalproex 250 mg tablet,delayed release (DR/EC) Discontinued 250 MG PO Three times daily March 28, 2020 1:00am June 28, 2023 1:21pm Problems Active Problems Problem ClassificationProblemDateDocumented DateEpisodic/ChronicAttention- deficit, conduct, and disruptive behavior disorders (9 sources)Attention deficit hyperactivity disorder, predominantly inattentive type; Translations: [Other specified behavioral and emotional disorders with onset usually occurring in childhood and adolescence]09-84-3322XldolvbWxbuomcil- deficit, conduct, and disruptive behavior disorders (1 source)Attention-deficit hyperactivity disorder, unspecified type; Translations: [ADHD UNSPECIFIED TYPE]Onset: 21-96-2257SbfmzvtRenboghfl-deficit, conduct, and disruptive behavior disorders (2 sources)Disruptive behavior disorder; 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, unspecified]35-02-0954YqyudwzZhafcwo obstructive pulmonary disease and bronchiectasis (19 sources)Chronic obstructive lung disease; Translations: [Chronic obstructive pulmonary disease, unspecified]Onset: 12-23-2021 Resolved: 01-59-5380XcoxgveKtkuzljazokpd disorders (20 sources)Severe intellectual disability; Translations: [Mental handicap] Onset: 109787-20-7310ZykucvuRlhpvgjld of lipid metabolism (1 source)Hyperlipidemia, unspecified; Translations: [HYPERLIPIDEMIA UNSPECIFIED]Onset: 97-54-8180XdwqpcqX Codes: Adverse effects of medical drugs (1 source)Adverse effect of other antiepileptic and sedative-hypnotic drugs, initial encounter; Translations:[ADVRS EFF OTH ANTIEPI SED RX INIT]Onset: 25-13-2137FjdugxdpIjiitlat; convulsions (20 sources)Epilepsy, unspecified, not intractable, without status epilepticus; Translations: [Seizure disorder]Onset: 84-98-1539UcxwctrDjnbtlsxwf disorders (6 sources)Gastro-esophageal reflux disease without esophagitis; Translations: [Gastroesophageal reflux disease]Onset: 922288-78-5063HdjkelmVkfxywqodrini congenital anomalies (7 sources)Retractile testis; 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]Onset: 10-22-2021 ChronicGenitourinary symptoms and ill-defined conditions (4 sources)Unspecified urinary incontinence; Translations: [Intermittent urinary incontinence]Onset: 03-63-3721CzcrymxMguydfzfbuv of prostate (1 source)Benign prostatic hyperplasia without lower urinary tract symptoms; Translations: [BENIGN PROSTATIC HYPRPLASIA WO LUTS]Onset: 19-25-2970Zioelkq Malaise and fatigue (1 source)Other fatigue; Translations: [OTHER FATIGUE]Onset: 76-07-8965Abkeunho Menopausal disorders (1 source)Hormone replacement therapy; Translations: [HORMONE REPLACEMENT THERAPY]Onset: 53-13-5926TfqksnbvCwpksla (4 sources)Ruzhqcbpzycws31-06-5148AnswyszzXnfayeglf; nephrosis; renal sclerosis (6 sources)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; Translations: [Nephritis and nephropathy, not specified as acute or chronic, with unspecified pathological lesion in kidney]Onset: ChronicNutritional deficiencies (1 source)Vitamin D deficiency, unspecified; Translations: [VITAMIN D DEFICIENCY UNSPECIFIED]Onset: 96-42-4747PyrtprhWpyhoujdccux (9 sources)Osteoporosis; Translations: [Age-related osteoporosis without current pathological fracture]Onset: 680313-38-9367TcmghszNsbwc aftercare (5 sources)Other remote computer terminal operator (current) drug therapy; Translations: [OTH JAIL CURRENT DRUG THERAPY]Onset: 34-12-4378ZqzoqvugVvulm and ill-defined heart disease (1 source)Cardiomegaly; Translations: [Cardiomegaly]94-46-2385SksjimpFfkct and ill-defined heart disease (1 source)Cardiomegaly; Translations: [Cardiomegaly]Onset: 24-21-7764Ormntym Other congenital anomalies (1 source)Tristen syndrome; 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]Onset: 08-05-2022 ChronicOther diseases of kidney and ureters (1 source)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; Translations: [Cyst of kidney, acquired]Onset: 31-84-2218LqdfpbhzTmtre gastrointestinal disorders (1 source)Other constipation; Translations: [OTHER CONSTIPATION]Onset: 09-02-7705VkuvaxlmHhlsg liver diseases (1 source)Hepatic encephalopathy; Translations: [HEPATIC ENCEPHALOPATHY]Onset: 57-42-7969PbtihbvyZuyhy lower respiratory disease (4 sources)Shortness of breath; Translations: [SHORTNESS OF BREATH]Onset: 79-39-6132TdvwweuoNqrvt lower respiratory disease (5 sources)Wheezing; Translations: [Wheezing]73-27-9547IxvnhjhxHkeiqrm on above: Problem List clean-up per request of Phys. EHR CmteOther nervous system disorders (2 sources)Aphasia; Translations: [Aphasia]05-14-5991XxxtbbeGzsih nutritional; endocrine; and metabolic disorders (5 sources)Disorder of urea cycle metabolism, unspecified; 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]Onset: 25-83-4503FgsdaqzOedfe upper respiratory disease (5 sources)Seasonal allergy; Translations: [Other seasonal allergic rhinitis] 12-25-1620WoateibYkqtg upper respiratory infections (8 sources)Chronic sinusitis; Translations: [Chronic sinusitis, unspecified] 75-82-7949FvtonluFpxiegjcn (20 sources)Tetraplegia; Translations: [Quadriplegia, unspecified]Onset: 23-99-5843WyconitQdpodfgsz (except that caused by tuberculosis or sexually transmitted disease) (1 source)Pneumonia, unspecified organism; Translations: [PNEUMONIA UNSPECIFIED ORGANISM]Onset: 57-65-7057GehbubqbWrotzmfw codes; unclassified (1 source)Restlessness and agitation; Translations: [RESTLESSNESS AND AGITATION] Onset: 75-83-1052CmtvokyHxzpbhmv codes; unclassified (1 source)Edema; Translations: [Edema, unspecified]98-64-4778ZxerqzjiWmlucpofzdm failure; insufficiency; arrest (adult) (1 source)Acute respiratory failure with hypoxia; Translations: [ACUTE RESPIRATORY FAIL W/HYPOXIA]Onset: 21-01-1000YclnaireCmoqvzfbxu (except in labor) (5 sources)Sepsis, unspecified organism; Translations: [Other specified sepsis] Onset: 33-40-1512EusnmkygZopbvtn disorders (13 sources)Hypothyroidism; Translations: [Hypothyroidism, unspecified]Onset: 599959-19-5738KualpjfIxozgicjnofy (3 sources)COUGH, UNSPECIFIED; Translations: [COUGH, UNSPECIFIED]Onset: 14-05-6371Cwmnhkpxlvci (1 source)CONTACT W/AND (SUSP) EXPOS COVID-19; Translations: [CONTACT W/AND (SUSP) EXPOS COVID-19]Onset: 85-07-4879Cwtbycqlhaia (1 source)PT OTH NONCOMPLIANCE MED OTH REASON; Translations: [PT OTH NONCOMPLIANCE MED OTH REASON]Onset: 40-70-6579Bosqy infection (1 source)Human metapneumovirus as the cause of diseases classified elsewhere; Translations: [HMPV CAUSE DZ CLASSIFIED ELSEWHERE]Onset: 13-93-3093Gkjktdcx Past or Other Problems Problem ClassificationProblemDateDocumented DateEpisodic/ChronicCardiac dysrhythmias (2 sources)Tachycardia; Translations: [Tachycardia, unspecified]Onset: 028415-95-0886NvnphhkqVmpdcgevoqbji of surgical procedures or medical care (4 sources)Other complications of procedures, not elsewhere classified, initial encounter; Translations: [OTH COMPLICATIONS PROC NEC INITIAL]Onset: 09-29-2021 EpisodicDisorders of teeth and jaw (13 sources)Dental caries; Translations: [Dental caries, unspecified]Onset: 03-28-2024 Resolved: 445522-70-2382FbzywdzxJhvrokdz; convulsions (16 sources)Seizure disorder; Translations: [Unspecified convulsions]Onset: 007102-06-6367JbdcoevzQkffueow; convulsions (4 sources)Epilepsy; yagegpsecjn79-95-0059Qccqo of unknown origin (4 sources)Fever, unspecified; Translations: [FEVER UNSPECIFIED]Onset: 04-29-0633MozjgojuDrwtvx and vomiting (3 sources)Vomiting, unspecified; Translations: [VOMITING UNSPECIFIED]Onset: 81-71-6290JlidjomwOyyxe circulatory disease (4 sources)Other specified symptoms and signs involving the circulatory and respiratory systems; Translations:[OTH SPEC SX SIGNS INVLV CIRC RS]Onset: 21-11-8541WlhpeineQmlou diseases of kidney and ureters (4 sources)Cyst of kidney, acquired; Translations: [CYST OF KIDNEY ACQUIRED] Onset: 72-06-6402MezylesvNmoci gastrointestinal disorders (1 source)Constipation, unspecified; Translations: [CONSTIPATION UNSPECIFIED] Onset: 13-60-8036XuvtywusTgljx injuries and conditions due to external causes (4 sources)Other injury of unspecified body region, initial encounter; Translations: [OTHER INJURY UNS BODY REGION INIT]Onset: 06-96-0354WjwaytnkZiicx male genital disorders (1 source)Other specified disorders of the male genital organs; Translations: [OTHER SPEC D/O MALE GENITAL ORGANS]Onset: 49-77-3679KsnbraqnKifyb screening for suspected conditions (not mental disorders or infectious disease) (4 sources)Abnormal finding of blood chemistry, unspecified; Translations: [Electrocardiogram abnormal]Onset: 157747-19-1490WgherzsiRnsmx upper respiratory infections (1 source)Acute upper respiratory infection, unspecified; Translations: [ACUTE UP RESPIRATORY INFECTION UNS]Onset: 10-85-8939DkuuzlbhWizvgxgd codes; unclassified (1 source)Insomnia, unspecified; Translations: [INSOMNIA UNSPECIFIED]Onset: 23-49-2105SdppmwchUoxucvvs codes; unclassified (1 source)Edema, unspecified; Translations: [Edema, unspecified]Onset: 22-25-1127VrtejgpxUnbggztbiknt (1 source)COUGH, UNSPECIFIED; Translations: [COUGH, UNSPECIFIED]Onset: 65-45-0545Iymvsuenmgxx (2 sources)Preprocedural examination rnzl48-09-3916 Results Test NameValueInterpretationReference RangeFacilityProgress Noteson 12-11-2024 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 Guardian mother Katia Lopez. [phone]. [facility] [phone] [phone] ( [facility]'s appt) Contact Information [phone] (Home Phone) Alternate Career Services Manager RUTH (Other) NOTE: Scheduled for OR ----- Signed on Wednesday, December 11, 2024 at 12:38:13 PM ----- ----- Provider: [id number] Jacobs DMD -- Clinic: [place] -----NormalThe [facility] Anesthesia Postprocedure Evaluationon 74-97-0066Bywjqxwvhclry Authentication Interface Message TextAnesthesia Postoperative Assessment: Vital Signs (most recent): BP [...] bedside ANESTHESIA NOTABLE EVENTS: No notable events documented.NormalThe [employer] SystemAnesthesia Preprocedure Evaluationon 58-19-1359Vzbwwqwhdkdwi Authentication Interface Message TextASA: 3 No history of anesthetic complications NPO [...] were discussed with the patient and/or legal risk control field representative. The risks, benefits and alternatives were reviewed. Questions regarding anesthesia were answered. Patient and/or legal risk control field representative knows such anesthetics and procedures may be performed by Resident physicians, Certified Anesthesiologist Assistants, or Certified Nurse Anesthetists under the supervision of a physician. The patient /or the patient's legal risk control field representative agree with the plan for anesthesia. Comment: Consent obtained from patient's mother over the phone. Also explained what to expect from anesthesia [facility] Social History Socioeconomic History Marital status: Single Social History Narrative Resident at [facility]. Mom is guardian CBC 06/02/2024 3:03 PM [...] 0.4 mg, DAILY Vitamin D3 125 mcg, DAILYNormalThe [facility] SystemAnesthesia Transfer Of Care on 76-71-4301Gdpqqgmzonbub Authentication Interface Message TextPatient taken to PACU. Patient was drowsy, comfortable, [...] 1 extraction; Surgeon: Ap Scott DDS; Location: [facility]; Service: Dental Allergies: Promethazine, Amoxicillin-pot [...] of understanding of the report was received. [place] [facility] SystemBlood Attestationon 78-40-8883Snmtfhsrghfuh Authentication Interface Message TextBlood Attestation: REFUSAL OF BLOOD OR BLOOD COMPONENTS: The patient and/or legal risk control field representative has been explained the need for transfusion of blood and/or blood components. The risks, benefits and alternatives have been explained. Questions concerning the transfusion of blood or blood components have been asked and answered. The patient and/or legal risk control field representative have REFUSED TO CONSENT transfusion of blood or blood products. PER PATIENT'S 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 Nurse: Felisha Moore Anesthesia: General Anesthesiologist: Blake [...] Signed by Beatris Thompson DDS 06/12/2024 7:03 AMNormalThe [facility]OP Noteon 98-79-8364Hoptshroxwted Authentication Interface Message TextOperative Note PHE OR 3 Parish Lopez 44 year old male Surgical Contact Serial Number: [id number] Preoperative Diagnosis: Pre-op Diagnosis * Caries [K02.9] Mental disability COPD Hyperthyroidism Seizures HLD GERD Postoperative Diagnosis: Mental Disability COPD Hyperthyroidism Seizures HLD GERD Procedures: Full mouth x-rays [83341] Comprehensive Exam [87283] Dental prophylaxis [35849] Surgeon: Ap Scott DDS Fulfillment Representative Surgeon: Hansel Burgess DDS; Beatris Thompson, JESSICA [...] the procedure. Beatris Thompson DDS 06/12/2024 7:07 AMNormalOhio State University [facility] SystemProgress Noteson 42-84-1598Xydagyktzxmvf Authentication Interface Message Text----- Wednesday, June 12, 2024 at 8:41:56 AM ----- ----- Provider: [id number] - Ap Adams DDS -- Clinic: [facility] ----- H, pt is ready for tx. [place], only scaling was done. Operative Note PHE OR 3 Parish Lopez 44 year old male Surgical Contact Serial Number: [id number] Preoperative Diagnosis: Pre-op Diagnosis * Caries [K02.9] Mental disability COPD Hyperthyroidism Seizures HLD GERD Postoperative Diagnosis: Mental Disability COPD Hyperthyroidism Seizures HLD GERD Procedures: Full mouth x-rays [42414] Comprehensive Exam [88239] Dental prophylaxis [15247] Surgeon: Ap Scott DDS Fulfillment Representative Surgeon: Hansel Burgess DDS; Beatris Thompson DMD [...] 2024 at 8:46:14 AM ----- ----- Provider: [id number] - Ap Adams DDS -- Clinic: [facility] -----NormalThe [facility] EKG 12 LEAD - PERFORMon 86-86-2863YmgalsholAhofe tachycardia Possible Left atrial enlargement Nonspecific T wave abnormality Abnormal ECG Confirmed by JOSSELIN NIETO ([id number]) on 06/05/2024 9:00:17 PM [facility]HealthP wave [facility] by [id number] wave tmmc51xdsmsztAnvihMgitbt P-R Gxvfgihx496 msMetroHealthQ-T qznmcidi703 msMetroHealthQ-T interval corrected 430 msMetroHealthQRS sggb7ovysywhJyayoDlxpskQYK rberbczx94 msMetroHealthT wave axis-4degreesMetroHealthMetroHealthTelephone Encounteron 51-26-7839Rtxanvowldonh Authentication Interface Message TextInformed Consent for dental surgery AND Anesthesia consent obtained and scanned into [employer]. Scheduled for surgery 06/12/2024.NormalThe [facility] SystemAddendum Noteon 32-87-1623Zkdzykqysmhnh Authentication Interface Message TextAddended by: BOYD HARRY on: 06/02/2024 05:54 PM Modules accepted: OrdersNormalThe MetroStudiek[facility] SystemBASIC METABOLIC PANELon 27-90-6271Ipxqg gap [Moles/Vol]18 mmol/ZYnxvnn54-29Cgd [facility] SystemComment on above:Performed By: #### CH8 ####[facility] PATH[facility] [id number] [place], [address]Xqcxpcw [Mass/Vol]10.5 mg/dLHigh8.6-10.3The [facility] SystemComment on above:Performed By: #### CH8 ####S PATHOLOGY [id number] [place], [address]Gklbzbtf [Moles/Vol]109 mmol/OTavj21-560Fiy [facility] SystemComment on above:Performed By: #### CH8 ####[facility] PATHOLOGY [id number] [place], [address]RT9 [Moles/Vol]22 mmol/MUsbhlu27-34Mmk [facility] SystemComment on above:Performed By: #### CH8 ####[facility] PATHOLOGY [id number] [place], [address]Eraypxrnwc [Mass/Vol]0.61 mg/dLLow0.70-1.30The [facility] Comment on above:Performed By: #### CH8 ####[facility] PATHOLOGY [id number] [place], [address]IZKQTDRUW GFR (CKD-EPI)121 mL/min/1.73sqmNormal>=60The [facility] SystemComment on above:Result Comment: 2020 CKD EPI Equation using Creatinine [...] Inclusion of Race in Diagnosing Kidney Disease. AmericanJournal of Kidney Diseases 2021;79(2):268-88.e1. 2. N Engl J Med 1 Vol. 385 Issue 19 Pages 8140-7041Performed By: #### CH8 ####S PATHOLOGY QQBHCPSLFT85[address] [place], [place], Glucose [Mass/Vol]126 mg/aAWsea41-026Stw [facility] SystemComment on above: Performed By: #### CH8 ####S PATHOLOGY GAOMYKNCEQ6[address] [place], [address]Kosogbmnt [Moles/Vol]4.8 mmol/LNormal3.5-5.0The [facility] SystemComment on above:Performed By: #### CH8 ####S PATHOLOGY [id number] [place], [address]Vpnhzf [Moles/Vol]144 mmol/ZRekzcd449-522Qts [facility] SystemComment on above:Performed By: #### CH8 ####S PATHOLOGY BQMGDSNOBU2653 [place], [address]Lnei nitrogen [Mass/Vol]14 mg/dLNormal7-25The [facility] SystemComment on above: Performed By: #### CH8 ####S PATHOLOGY SJZMXIUDUQ8340 [place], [address]Lujcl metabolic 2000 panelon 32-84-2551Yvddz gap [Moles/Vol]18 mmol/L10 - 20MetroHealthCalcium [Mass/Vol]10.5 mg/dLHigh8.6 - 10.3 mg/dLMetroHealthChloride [Moles/Vol]109 mmol/LHigh98 - 107 mmol/LMetroHealthCO2 [Moles/Vol]22 mmol/L21 - 31 mmol/LMetroHealthCreatinine [Mass/Vol]0.61 mg/dLLow 0.70 - 1.30 mg/dLMetroHealthGFR/1.73 sq M.predicted CKD-EPI (S/P/Bld) [Vol rate/Area]121- PINFMetroHealthComment on above:2020 CKD EPI Equation using Creatinine without Race [...] Inclusion of Race in Diagnosing Kidney Disease. AmericanJournal of Kidney Diseases 202;79(2):268-88.e1. 2. N Engl J Med 1 Vol. 385 Issue 19 Pages 7528-3685 Glucose [Mass/Vol]126 mg/cRYqaq89 - 109 mg/dLMetroHealthInterpretation and review of laboratory resultsAbnormalMetroHealthPotassium [Moles/Vol]4.8 mmol/L 3.5 - 5.0 mmol/LMetroHealthSodium [Moles/Vol]144 mmol/L136 - 145 mmol/L MetroHealthUrea nitrogen [Mass/Vol]14 mg/dL7 - 25 mg/dLMetroHealthMetroHealthCBC panel Auto (Bld)on 60-18-1476Eeobyklyfgr distribution width (RBC) [Ratio]14.5 % 11.5 - 14.5 %MetroHealthHematocrit (Bld) [Volume fraction]42.5 %41.0 - 53.0 % MetroHealthHemoglobin (Bld) [Mass/Vol]13.8 g/dLLow13.9 - 16.3 g/dLMetroHealth Interpretation and review of laboratory resultsAbnormalMetroHealthMCH (RBC) [Entitic mass]30.7 pg26.0 - 34.0 pgMetroHealthMCHC (RBC) [Mass/Vol]32.4 g/dL32.0 - 35.9 g/dLMetroHealthMCV (RBC) [Entitic vol]95 fL80 - 100 fLMetroHealth Platelet mean volume (Bld) [Entitic vol]9.3 fL7.5 - 11.2 fLMetroHealthPlatelets (Bld) [#/Vol]419 10*3/sQRyxg152 - 400 K/uLMetroHealthRBC (Bld) [#/Vol]4.49 10*6/uLLowMetroHealthWBC (Bld) [#/Vol]7 10*3/uL4.5 - 11.5 K/uLMetroHealth MetroHealthCOMPLETE BLOOD COUNTon 60-11-2353Aysfimsqdll distribution width (RBC) [Ratio]14.5 %Hfvvju75.5-14.5The [facility] SystemComment on above:Performed By: #### CBC #### [facility] [address] [place] [address], [address]Exovcxkaid (Bld) [Volume fraction]42.5 %Vsduzt33.0-53.0 The [facility] SystemComment on above:Performed By: #### CBC #### [facility] [address] [place], [address]Uqmwljpmmc (Bld) [Mass/Vol]13.8 g/dLLow13.9-16.3The [facility] SystemComment on above:Performed By: #### CBC #### [facility] [address] [place] [address], [address]XOT (RBC) [Entitic mass]30.7 uxAyfmzw79.0-34.0The [facility] SystemComment on above:Performed By: #### CBC #### [facility] [address] [place] [address], [address]HVAO (RBC) [Mass/Vol]32.4 g/dRQtesmi37.0-35.9The [facility] SystemComment on above:Performed By: #### CBC #### [facility] [address] [place] [address], [address]OKW (RBC) [Entitic vol]95 fZPwxbee64-983Ady [facility] SystemComment on above:Performed By: #### CBC #### [facility] [address] [place] [address], [address]Dlshxjbt mean volume (Bld) [Entitic vol]9.3 fLNormal 7.5-11.2The [facility] SystemComment on above:Performed By: #### CBC #### [facility] [address] [place] [address], [address]Nfsqqurwp (Bld) [#/Vol]419 10*3/sPOsve805-714Ibt [facility] SystemComment on above:Performed By: #### CBC #### [facility] [address] [place] [address], [address]NGF (Bld) [#/Vol]4.49 10*6/uLLow4.50-5.90The [facility] SystemComment on above:Performed By: #### CBC #### [facility] [address] [place] [address], [address]DEE (Bld) [#/Vol]7.0 10*3/uLNormal4.5-11.5The [facility] SystemComment on above:Performed By: #### CBC #### [facility] [address] [place] [address], [address]Ujyrzex Instructionson [id number] Authentication Interface Message TextRECOMMENDATIONS: Patient was instructed on the following: Nothing by mouth after midnight before surgery except following meds with sip of water on AM of surgery: as per anesthesia Stop aspirin 7 days before surgery Stop NSAID 5 days before surgery Stop Vitamin E 10 days prior to surgery Stop alternative/herbal medication 10 days before surgery Boyd Harry MDPeconic Bay Medical Center SystemProgress Noteson 06-02-2024 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[employer] Authentication Interface Message TextBlood pressure 154/73, pulse 115, temperature 98.9 ???F [...] 1 extraction; Surgeon: Ap Scott DDS; Location: [facility]; Service: Dental Pertinent Social [...] fever, chills, night sweats, and weight loss 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: h/o 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 (more content not included)...NormalThe [facility] SystemTHYROXINE (T4), FREEon 66-03-6611Ciey T4 [Mass/Vol]0.7 ng/dL0.61 - 1.12 ng/dLMetroHealth Interpretation and review of laboratory resultsNormalMetroHealthMetroHealthT4 F 0.70 ng/dLNormal0.61-1.12The [facility] SystemComment on above:Performed By: #### TSH HS, T4 F #### [facility] [address] [place], [address]CJHhz 55-88-8658Objidhjmlkggbw and review of laboratory resultsAbnormalMetroHealthTSH Qn0.229 m[IU]/LLowMetroHealthMetroHealthTSH0.229 uIU/mLLow0.450-5.330The [facility] SystemComment on above:Performed By: #### TSH HS, T4 F #### [facility] [address] [place], [address]OW Chest PA and Lateralon [id number] eagle MD - 06/02/2024 EXAMINATION: XR CHEST PA+LAT [...] images and agree with the resident's interpretation. MetroHealthRadiology Study observation (narrative)MetroHealthXR Chest PA and LateralOrdered By: Greta Heck on 30-79-3494BkuiiXbumcp Work Phone: No Panel Informationon 64-97-3157CTRT Healthcare Progress Noteson 81-99-6085Lejpkcfurqzsl Authentication Interface Message Text Parent/guardian/patient was contacted for PSE AND OR scheduled -- confirmed information with mom, also informed mom importance of receiving PSE call -- if not received surgery will be canceled. 06/12/2024 ----- Thursday, April 25, 2024 at 2:35:00 PM ----- ----- Provider: PEARL [facility] -- Clinic: [place] -----NormalThe [facility] SystemNo Panel Informationon 30-46-8250Fo in note [facility] HealthcareAmbulatory Visit Summaryon 43-57-3057Ykgprphcxx Visit Summary PARISH LOPEZ :1980 Visit Date:12/16/2022 [...] 5000 intl units oral capsule) clobazam (Onfi) dextromethorphan-guaifenesin (Cough and Chest Congestion) diazepam diazepam (Diastat [...] (oxcarbazepine 600 mg Tab) polyethylene glycol 3350 (CIA4117 oral powder for reconstitution) polyethylene glycol 3350 (polyethylene glycol 3350 17 gram packet) rifaximin (Xifaxan 550 mg oral tablet) senna (Senna 8.6 mg oral tablet) sodium chloride nasal ([place] Saline Nasal Gel) tamsulosin Discharge Vitals Temperature [...] mL Inh Susp) 2 Milliliter Nebulized inhalation (aerosol)2 times a day Unchanged calcium-vitamin D (Oyster Shell Calcium with Vitamin D) 1 tab bid Unchanged chlorpheniramine (Allergy Relief) 50 Milligram By Mouth Every day Unchanged cholecalciferol (Vitamin D3 5000 intl units oral capsule) Unchanged clobazam (Onfi) 10 Milligram By Mouth 2 times a day Unchanged dextromethorphan-guaifenesin (Cough and Chest Congestion) Unchanged diazepam 10 Milligram By rectum As needed for Seizure Unchanged diazepam (Diastat AcuDial adult) By rectum Once Unchanged divalproex sodium (divalproex sodium 125 mg Cap-EC) By Mouth 3 times a day Unchanged docusate (docusate sodium 100 mg Cap) 1 Capsules By Mouth 2 times a day as needed for forconstipation Unchanged doxycycline (doxycycline hyclate 100 mg Cap) [...] Crm w/ Appl) 1 Application By rectum 2times a day Unchanged ipratropium 4 times a day Unchanged ipratropium (ipratropium 0.02% inhalation solution) Nebulized inhalation (aerosol) 4 times a day Unchanged ketoconazole topical (ketoconazole Top 2% Crm) 1 Application T (more content not included)...[facility] Educationon 77-69-3138Vecijca EducationObstetrics and Gynecology Kegel Exercises Kegel exercises can [...] provider. Document Revised: 08/14/2021 Document Reviewed: 08/14/2021 [employer] Patient Education ? 2022 [employer].[facility] Physician Orderon 75-81-2976Yuvabfdiw Order [id number]#1.00CD:127[facility] Medical CenterRAD - Ultrasound Reporton 90-24-3908OGE - Ultrasound Report [id number]#1.00CD:127[facility] Medical CenterUrology Office/Clinic Noteon 03-72-5594Yorigfi Office/Clinic NoteChief Complaint 1281 year F/u HPI Staff 1yr [...] retractile testes. Pt currently resides in [facility]. CBC/CMP 08/01/22 1. Retractile testis (Q55.22: [...] Eye-Both, QID atorvastatin, 10 mg, Oral, Daily [place] Saline Nasal Gel, Nasal, TID azelastine nasal 137 mcg/inh spray, 2 spray(s), Nasal, As (more content not included)...[facility] Medical CenterComment on above:Result Comment: Electronically Signed By: Arline Levine MD\.br\Date and Time Signed: 12/16/22 20:02EDT\.br\Electronically Co-Signed By: Makayla Todd\.br\Date and Time Co-Signed: 12/16/22 11:27 EDTXR CHEST 1 Von 12-23-0607VL CHEST 1 VEXAM: XR CHEST 1 V at 1814 HISTORY: SHORTNESS OF BREATH COMPARISON: 07/28/2022 [...] Electronically authenticated by: GUANAKITO MEADE Date: 2022-08-04 18:50NormalThe [facility]ina HospitalONIA [id number] (P) [Moles/Vol]87 umol/LCritically jsnn93-60Wre [facility] OhioComment on above:Performed By: #### BMP #### [facility] [address] [place] [address] Dr. Deepak GreenfieldSCRIPPS MEMORIAL HOSPITALONIA [id number] (P) [Moles/Vol]42 umol/LCritically xvka55-11Tcb [facility] OhioComment on above:Performed By: #### MG, CMP #### [facility] [address] [place] [address] Dr. Deepak Brand W MANUAL DIFFon 22-29-5156LNJZZMIA LYMPH #0.41 103/ulNormal The [facility] OhioComment on above:Performed By: #### MG, CMP #### [facility] [address] [place] [address] Dr. Deepak SouthYPICAL LYMPH %7 %NormalUniversity Hospitals St. John Medical CenterComment on above: Performed By: #### MG, CMP #### [facility] [address] [place] [address] Dr. Deepak Dow #0.0 103/ulNormal0.0-0.3The [facility] OhioComment on above:Performed By: #### MG, CMP #### [facility] [address] [place] [address] Dr. Deepak Dow %0 %Normal0-5The [facility] OhioComment on above:Performed By: #### MG, CMP #### [facility] [address] [place] [address] Dr. Deepak Farah #0.00 103/ulNormal0.00-0.10The [facility] HospitalComment on above:Performed By: #### MG, CMP #### [facility] [address] [place] [address] Dr. Deepak SalgadoM %0.0 %Critically low0.2-2.0The [place] HospitalComment on above:Performed By: #### MG, CMP #### [facility] [address] [place] [address] Dr. Deepak Love #NormalThe [place] HospitalComment on above:Performed By: #### MG, CMP #### [facility] [address] [place] [address] Dr. Deepak Love %NormalThe [place] HospitalComment on above:Performed By: #### MG, CMP #### [facility] [address] [place] [address] Dr. Deepak GreenfieldCORRECTED WBCNormal4.0-11.0The [facility] OhioComment on above: Performed By: #### MG, CMP #### [facility] [address] [place] [address] Dr. Deepak Hernandez #0.06 103/ulNormal0.00-0.70The [facility] OhioComment on above:Performed By: #### MG, CMP #### [facility] [address] [place] [address] Dr. Deepak Hernandez%1.0 %Normal0.9-7.0The [place] HospitalComment on above: Performed By: #### MG, CMP #### [facility] [address] [place] [address] Dr. Deepak GreenfieldHCT37.6 %Critically low42.0-54.0The [place] HospitalComment on above:Performed By: #### MG, CMP #### [facility] [address] [place] [address] Dr. Deepak GreenfieldHGB12.3 g/dlCritically low14.0-18.0The [facility] OhioComment on above:Performed By: #### MG, CMP #### [facility] [address] [address] [address] Deepak De Jesus #1.91 103/ulNormal1.20-3.80The [facility] OhioComment on above:Performed By: #### MG, CMP #### [facility] [address] [address] [address] Deepak De Jesus%33.0 %Xdfdeq88.5-60.0The [facility] OhioComment on above:Performed By: #### MG, CMP #### [facility] [address] [place] [address] Dr. Deepak SchwartzH31.7 rzZwnxen87.9-34.0The [facility] OhioComment on above: Performed By: #### MG, CMP #### [facility] [address] [place] [address] Dr. Deepak SchwartzHC32.7 g/mpLvlsra84.9-35.2The [facility] OhioComment on above:Performed By: #### MG, CMP #### [facility] [address] [place] [address] Dr. Deepak SchwartzV96.9 fLCritically high80.0-94.0The [facility] OhioComment on above:Performed By: #### MG, CMP #### [facility] [address] [place] [address] Dr. Deepak TranOCYTE #NormalThe [facility] OhioComment on above: Performed By: #### MG, CMP #### [facility] [address] [address] [address] Deepak TranOCYTE %NormalThe [facility] OhioComment on above: Performed By: #### MG, CMP #### [facility] [address] [place] [address] Dr. Deepak Dunn#0.29 103/ulCritically low0.30-0.80The [facility] Comment on above:Performed By: #### MG, CMP #### [facility] [address] [address] [address] Deepak Dunn%5.0 %Normal1.7-12.0The [place] HospitalComment on above: Performed By: #### MG, CMP #### [facility] [address] [place] [address] Dr. Deepak GreenfieldMPV11.0 fLNormal9.5-13.5The [place] HospitalComment on above: Performed By: #### MG, CMP #### [facility] [address] [place] [address] Dr. Deepak Sargent #NormalThe [facility] OhioComment on above:Performed By: #### MG, CMP #### [facility] [address] [place] [address] Dr. Deepak GutierrezOCYTE %NormalThe [place] HospitalComment on above:Performed By: #### MG, CMP #### [facility] [address] [place] [address] Dr. Deepak GreenfieldNRBCNormalThe [facility] OhioComment on above:Performed By: #### MG, CMP #### [facility] [address] [place] [address] Dr. Deepak GomezT208 103/jfPznsmp079-941Egh [facility] OhioComment on above: Performed By: #### MG, CMP #### [facility] [address] [place] [address] Dr. Deepak GreenfieldRBC3.88 106/ulCritically low4.70-6.10The [place] HospitalComment on above:Performed By: #### MG, CMP #### [facility] [address] [place] [address] Dr. Deepak GreenfieldRDW12.9 %Dkxvor75.0-15.0The [facility] OhioComment on above: Performed By: #### MG, CMP #### [facility] [address] [place] [address] Dr. Deepak Soto #3.13 103/ulNormal1.40-6.50The [facility] OhioComment on above:Performed By: #### MG, CMP #### [facility] [address] [place] [address] Dr. Deepak Soto %54.0 %Ltsmpz07.0-75.0The [facility] OhioComment on above: Performed By: #### MG, CMP #### [facility] [address] [place] [address] Dr. Deepak GreenfieldSTOMATOCYTES3+NormalThe [place] HospitalComment on above: Performed By: #### MG, CMP #### [facility] [address] [place] [address] Dr. Deepak GreenfieldWBC5.8 103/ulNormal4.0-11.0The [facility] OhioComment on above: Performed By: #### MG, CMP #### [facility] [address] [place] [address] Dr. Deepak GreenfieldPROF CHEM 8 (BAS METB)on 14-91-1173Kebkf gap [Moles/Vol]16.1 mmol/LNormalThe [facility] OhioComment on above:Performed By: #### BMP #### [facility] [address] [place] [address] Dr. Deepak GreenfieldCalcium [Mass/Vol]9.3 mg/dLNormal8.5-10.1[facility] Comment on above:Performed By: #### BMP #### [facility] [address] [place] [address] Dr. Deepak GreenfieldChloride [Moles/Vol]105 mmol/EXbgbdp68-364Ftf [facility] Comment on above:Performed By: #### BMP #### [facility] [address] [place] [address] Dr. Deepak GreenfieldCO2 [Moles/Vol]27.6 mmol/VHwdmok05.0-32.0[facility] Comment on above:Performed By: #### BMP #### [facility] [address] [place] [address] Dr. Deepak GreenfieldCreatinine [Mass/Vol]0.96 mg/dLNormal0.70-1.30The [facility] OhioComment on above:Performed By: #### BMP #### [facility] [address] [address] [address] Deepak McallisterGFR-AF ZIMBABWEAN>60Normal>=60The [facility] OhioComment on above:Performed By: #### BMP #### [facility] [address] [address] [address] Deepak McallisterGFR-NON AF ZIMBABWEAN>60Normal>=60The [facility] OhioComment on above:Performed By: #### BMP #### [facility] [address] [address] [address] Deepak GreenfieldGlucose [Mass/Vol]160 mg/dLCritically zcpv82-914Xkq [facility] OhioComment on above:Performed By: #### BMP #### [facility] [address] [place] [address] Dr. Deepak GreenfieldPotassium [Moles/Vol]3.7 mmol/LNormal3.5-5.1The [facility] Comment on above:Performed By: #### BMP #### [facility] [address] [address] [address] Deepak GreenfieldSodium [Moles/Vol]145 mmol/JMilwxl468-750Uqi [facility] Comment on above:Performed By: #### BMP #### [facility] [address] [address] [address] Deepak GreenfieldUrea nitrogen [Mass/Vol]5.0 mg/dLCritically low7.0-18.0The [facility] OhioComment on above:Performed By: #### BMP #### [facility] [address] [address] [address] Deepak GreenfieldUrea nitrogen/Creatinine [Mass ratio]5.2 mg/mgNormalThe [facility] OhioComment on above:Performed By: #### BMP #### [facility] [address] [address] [address] Deepak Álvarez 22-20-0950Dazvbkf (P) [Moles/Vol]94 umol/LCritically qopl67-02Hdb [facility] OhioComment on above:Performed By: #### MG, CMP #### [facility] [address] [place] [address] Dr. Deepak GossC AUTO DIFFon 87-86-0455YVEG #0.0 103/ulNormal0.0-0.1The [facility] OhioComment on above:Performed By: #### BMP #### [facility] [address] [place] [address] Dr. Deepak GreenfieldBasophils/100 WBC (Bld)0.1 %Critically low0.2-2.0The [facility] OhioComment on above:Performed By: #### BMP #### [facility] [address] [place] [address] Dr. Sotelo ChangEO #0.0 103/ulNormal0.0-0.7The [facility] OhioComment on above: Performed By: #### BMP #### [facility] [address] [place] [address] Dr. Deepak Mcallisterosinophils/100 WBC (Bld)0.0 %Critically low0.9-7.0The [facility] OhioComment on above:Performed By: #### BMP #### [facility] [address] [place] [address] Dr. Deepak Mcallisterrythrocyte distribution width (RBC) [Ratio]13.1 %Xjloka62.0-15.0 The [facility] OhioComment on above:Performed By: #### BMP #### [facility] [address] [place] [address] Dr. Deepak GreenfieldHematocrit (Bld) [Volume fraction]32.4 %Critically low42.0-54.0 The [facility] OhioComment on above:Performed By: #### BMP #### [facility] [address] [place] [address] Dr. Deepak GreenfieldHemoglobin (Bld) [Mass/Vol]10.9 g/dLCritically low14.0-18.0The [facility] OhioComment on above:Performed By: #### BMP #### [facility] [address] [place] [address] Dr. Deepak Bahena #0.02 10e3/ulNormal0.00-0.03The [facility] OhioComment on above:Performed By: #### BMP #### [facility] [address] [place] [address] Dr. Deepak Bahena %0.3 %Normal0.0-0.5The [facility] OhioComment on above: Performed By: #### BMP #### [facility] [address] [place] [address] Dr. Deepak LauGeo #2.7 103/ulNormal1.2-3.8The [facility] OhioComment on above:Performed By: #### BMP #### [facility] [address] [place] [address] Dr. Deepak Lauhocytes/100 WBC (Bld)38.9 %Zhjdme77.5-60.0The [facility] OhioComascension standish [facility] on above:Performed By: #### BMP #### [facility] [address] [place] [address] Dr. Deepak MendozaUAL DIFF REQNONormalThe [facility] OhioComment on above: Performed By: #### BMP #### [facility] [address] [place] [address] Dr. Deepak Schwartz (RBC) [Entitic mass]32.3 zuDxgkvj99.9-34.0The [facility] OhioComment on above:Performed By: #### BMP #### [facility] [address] [place] [address] Dr. Deepak Schwartz (RBC) [Mass/Vol]33.6 g/xGVrgeor98.9-35.2The [facility] OhioComment on above:Performed By: #### BMP #### [facility] [address] [place] [address] Dr. Deepak Schwartz (RBC) [Entitic vol]96.1 fLCritically high80.0-94.0The [facility] OhioComment on above:Performed By: #### BMP #### [facility] [address] [address] [address] Deepak Morel #0.3 103/ulNormal0.3-0.8The [facility] OhioComment on above:Performed By: #### BMP #### [facility] [address] [place] [address] Dr. Deepak Santosocytes/100 WBC (Bld)4.9 %Normal1.7-12.0The [facility] Comment on above:Performed By: #### BMP #### [facility] [address] [place] [address] Dr. Deepak Gifford #3.9 103/ulNormal1.4-6.5The [facility] OhioComment on above:Performed By: #### BMP #### [facility] [address] [place] [address] Dr. Deepak Mongeutrophils/100 WBC (Bld)55.8 %Boakxt27.0-75.0The [facility] OhioComment on above:Performed By: #### BMP #### [facility] [address] [place] [address] Dr. Deepak GreenfieldPlatelet mean volume (Bld) [Entitic vol]9.7 fLNormal9.5-13.5The [facility] OhioComment on above:Performed By: #### BMP #### [facility] [address] [place] [address] Dr. Deepak GreenfieldPLT296 103/xnXsdovh146-491Fpt [facility] OhioComment on above: Performed By: #### BMP #### [facility] [address] [place] [address] Dr. eDepak GreenfieldRBC3.37 106/ulCritically low4.70-6.10The [facility] OhioComment on above:Performed By: #### BMP #### [facility] [address] [place] [address] Dr. Deepak GreenfieldWBC7.0 103/ulNormal4.0-11.0The [facility] OhioComment on above: Performed By: #### BMP #### [facility] [address] [address] [address] Deepak GreenfieldPROF CHEM 8 (BAS METB)on [id number] gap [Moles/Vol]14.9 mmol/LNormalThe [facility] OhioComment on above:Performed By: #### CBC #### [facility] [address] [address] [address] Deepak GreenfieldCalcium [Mass/Vol]8.8 mg/dLNormal8.5-10.1The [facility] Comment on above:Performed By: #### CBC #### [facility] [address] [address] [address] Deepak GreenfieldChloride [Moles/Vol]105 mmol/AZtznwa81-122Ijn [facility] Comment on above:Performed By: #### CBC #### [facility] [address] [place] [address] Dr. Deepak GreenfieldCO2 [Moles/Vol]26.4 mmol/JCeqoso89.0-32.0The [facility] Comment on above:Performed By: #### CBC #### [facility] [address] [place] [address] Dr. Deepak GreenfieldCreatinine [Mass/Vol]0.70 mg/dLNormal0.70-1.30The [facility] OhioComment on above:Performed By: #### CBC #### [facility] [address] [address] [address] Deepak McallisterGFR-AF ZIMBABWEAN>60Normal>=60The [facility] OhioComment on above:Performed By: #### CBC #### [facility] [address] [address] [address] Deepak McallisterGFR-NON AF ZIMBABWEAN>60Normal>=60The [facility] OhioComment on above:Performed By: #### CBC #### [facility] [address] [place] [address] Dr. Deepak GreenfieldGlucose [Mass/Vol]129 mg/dLCritically tcxh16-413Oqp [facility] OhioComment on above:Performed By: #### CBC #### [facility] [address] [address] [address] Deepak GreenfieldPotassium [Moles/Vol]4.3 mmol/LNormal3.5-5.1The [facility] Comment on above:Performed By: #### CBC #### [facility] [address] [address] [address] Deepak GreenfieldSodium [Moles/Vol]142 mmol/KJwbbro508-004Oji [facility] Comment on above:Performed By: #### CBC #### [facility] [address] [address] [address] Deepak GreenfieldUrea nitrogen [Mass/Vol]6.0 mg/dLCritically low7.0-18.0The [facility] OhioComment on above:Performed By: #### CBC #### [facility] [address] [place] [address] Dr. Deepak Murphy nitrogen/Creatinine [Mass ratio]8.6 mg/mgNormalThe [facility] OhioComment on above:Performed By: #### CBC #### [facility] [address] [place] [address] Dr. Deepak GreenfieldAMMONIAon [id number] (P) [Moles/Vol]64 umol/LCritically pmld80-27Nqt [facility] OhioComment on above:Performed By: #### CBC #### [facility] [address] [place] [address] Dr. Deepak GossC AUTO DIFFon [id number] #0.0 103/ulNormal0.0-0.1The [facility] OhioComment on above:Performed By: #### INFLUAB #### [facility] [address] [address] [address] Deepak GreenfieldBasophils/100 WBC (Bld)0.0 %Critically low0.2-2.0The [facility] OhioComment on above:Performed By: #### INFLUAB #### [facility] [address] [place] [address] Dr. Sotelo ChangEO #0.0 103/ulNormal0.0-0.7The [facility] OhioComment on above: Performed By: #### INFLUAB #### [facility] [address] [place] [address] Dr. Deepak Mcallisterosinophils/100 WBC (Bld)0.0 %Critically low0.9-7.0The [facility] OhioComment on above:Performed By: #### INFLUAB #### [facility] [address] [place] [address] Dr. Deepak Mcallisterrythrocyte distribution width (RBC) [Ratio]13.1 %Ajafwz46.0-15.0 The [facility] OhioComment on above:Performed By: #### INFLUAB #### [facility] [address] [place] [address] Dr. Deepak GreenfieldHematocrit (Bld) [Volume fraction]31.4 %Critically low42.0-54.0 The [facility] OhioComment on above:Performed By: #### INFLUAB #### [facility] [address] [place] [address] Dr. Deepak GreenfieldHemoglobin (Bld) [Mass/Vol]10.5 g/dLCritically low14.0-18.0The [facility] OhioComment on above:Performed By: #### INFLUAB #### [facility] [address] [place] [address] Dr. Deepak Bahena #0.01 10e3/ulNormal0.00-0.03The [facility] OhioComment on above:Performed By: #### INFLUAB #### [facility] [address] [place] [address] Dr. Deepak Bahena %0.2 %Normal0.0-0.5The [facility] OhioComment on above: Performed By: #### INFLUAB #### [facility] [address] [place] [address] Dr. Deepak Dong #1.5 103/ulNormal1.2-3.8The [facility] OhioComment on above:Performed By: #### INFLUAB #### [facility] [address] [place] [address] Dr. Yilan ChangLymphocytes/100 WBC (Bld)27.5 %Xdsrku35.5-60.0The [facility] OhioComment on above:Performed By: #### INFLUAB #### [facility] [address] [place] [address] Dr. Deepak MendozaUAL DIFF REQNONormalThe [facility] OhioComment on above: Performed By: #### INFLUAB #### [facility] [address] [place] [address] Dr. Deepak Schwartz (RBC) [Entitic mass]32.4 feVstcbx69.9-34.0The [facility] Ohio[facility] on above:Performed By: #### INFLUAB #### [facility] [address] [place] [address] Dr. Deepak Schwartz (RBC) [Mass/Vol]33.4 g/vNGiemfb91.9-35.2The [facility] OhioComment on above:Performed By: #### INFLUAB #### [facility] [address] [place] [address] Dr. Deepak Schwartz (RBC) [Entitic vol]96.9 fLCritically high80.0-94.0The [facility] OhioComment on above:Performed By: #### INFLUAB #### [facility] [address] [place] [address] Dr. Deepak Morel #0.2 103/ulCritically low0.3-0.8The [facility] OhioComment on above:Performed By: #### INFLUAB #### [facility] [address] [place] [address] Dr. Deepak Santosocytes/100 WBC (Bld)2.9 %Normal1.7-12.0The [facility] Comment on above:Performed By: #### INFLUAB #### [facility] [address] [place] [address] Dr. Deepak Gifford #3.8 103/ulNormal1.4-6.5The [facility] OhioComment on above:Performed By: #### INFLUAB #### [facility] [address] [place] [address] Dr. Deepak Mongeutrophils/100 WBC (Bld)69.4 %Oaohyq95.0-75.0The [facility] on above:Performed By: #### INFLUAB #### [facility] [address] [place] [address] Dr. Deepak Stanfordlet mean volume (Bld) [Entitic vol]9.4 fLCritically low 9.5-13.5The [facility] OhioComment on above:Performed By: #### INFLUAB #### [facility] [address] [place] [address] Dr. Deepak GreenfieldPLT256 103/rrPcyeoe416-068Rlq [facility] on above: Performed By: #### INFLUAB #### [facility] [address] [place] [address] Dr. Deepak GreenfieldRBC3.24 106/ulCritically low4.70-6.10The [facility] OhioComment on above:Performed By: #### INFLUAB #### [facility] [address] [place] [address] Dr. Deepak GreenfieldWBC5.5 103/ulNormal4.0-11.0The [facility] on above: Performed By: #### INFLUAB #### [facility] [address] [place] [address] Dr. Deepak Palomares Summary.on [id number] Summary. CD:[id number]+PGhlYWQ+[id number]mokPaB D2isNCiNTDf [file] cHNlOiBj (more content not included)...[facility] CenterPROF CHEM 8 (BAS METB)on 00-39-0956Ieuvy gap [Moles/Vol]8.3 mmol/LNormalUniversity Hospitals St. John Medical CenterComment on above:Performed By: #### INFLUAB #### [facility] [address] [address] [address] Deepak GreenfieldCalcium [Mass/Vol]8.5 mg/dLNormal8.5-10.1The [facility] Comment on above:Performed By: #### INFLUAB #### [facility] [address] [address] [address] Deepak GreenfieldChloride [Moles/Vol]104 mmol/EVjkvqk08-947Tid [facility] on above:Performed By: #### INFLUAB #### [facility] [address] [address] [address] Deepak GreenfieldCO2 [Moles/Vol]30.0 mmol/IQprujr23.0-32.0The [facility] Comment on above:Performed By: #### INFLUAB #### [facility] [address] [address] [address] Deepak GreenfieldCreatinine [Mass/Vol]0.46 mg/dLCritically low0.70-1.30The [facility] OhioComment on above:Performed By: #### INFLUAB #### [facility] [address] [address] [address] Sotelo ChangEGFR-AF ZIMBABWEAN>60Normal>=60The [facility] Ohio[facility] on above:Performed By: #### INFLUAB #### [facility] [address] [address] [address] Deepak McallisterGFR-NON AF ZIMBABWEAN>60Normal>=60The [facility] on above:Performed By: #### INFLUAB #### [facility] [address] [address] [address] Deepak GreenfieldGlucose [Mass/Vol]152 mg/dLCritically ihzr54-886Mgl [facility] OhioComment on above:Performed By: #### INFLUAB #### [facility] [address] [address] [address] Deepak GreenfieldPotassium [Moles/Vol]4.3 mmol/LNormal3.5-5.1The [facility] Comment on above:Performed By: #### INFLUAB #### [facility] [address] [address] [address] Deepak GreenfieldSodium [Moles/Vol]138 mmol/LJbymqm862-800Vkl [facility] on above:Performed By: #### INFLUAB #### [facility] [address] [place] [address] Dr. Deepak Murphy nitrogen [Mass/Vol]9.0 mg/dLNormal7.0-18.0The [facility] Ohio[facility] on above:Performed By: #### INFLUAB #### [facility] [address] [place] [address] Dr. Deepak GreenfieldUrea nitrogen/Creatinine [Mass ratio]19.6 mg/mgNormalThe [facility] OhioComment on above:Performed By: #### INFLUAB #### [facility] [address] [place] [address] Dr. Deepak GreenfieldAMMONIAon 00-86-4641Juioanj (P) [Moles/Vol]69 umol/LCritically eyhg45-34Bdz [facility] OhioComment on above:Performed By: #### AMM #### [facility] [address] [place] [address] Dr. Deepak Brand AUTO DIFFon [id number] #0.0 103/ulNormal0.0-0.1The [facility] Ohio[facility] on above:Performed By: #### MG, CMP #### [facility] [address] [place] [address] Dr. Deepak GreenfieldBasophils/100 WBC (Bld)0.2 %Normal0.2-2.0The [facility] on above:Performed By: #### MG, CMP #### [facility] [address] [place] [address] Dr. Deepak Boothe #0.0 103/ulNormal0.0-0.7The [facility] on above: Performed By: #### MG, CMP #### [facility] [address] [place] [address] Dr. Deepak Mcallisterosinophils/100 WBC (Bld)0.0 %Critically low0.9-7.0[facility] CenterComment on above:Performed By: #### MG, CMP #### [facility] [address] [place] [address] Dr. Deepak Mcallisterrythrocyte distribution width (RBC) [Ratio]13.2 %Vttdef10.0-15.[address] [facility] CenterComment on above:Performed By: #### MG, CMP #### [facility] [address] [place] [address] Dr. Deepak GreenfieldHematocrit (Bld) [Volume fraction]33.1 %Critically low42.0-54.0 The [facility] Ohio[facility] on above:Performed By: #### MG, CMP #### [facility] [address] [place] [address] Dr. Deepak GreenfieldHemoglobin (Bld) [Mass/Vol]10.8 g/dLCritically low14.0-18.0The [facility] Ohio[facility] on above:Performed By: #### MG, CMP #### [facility] [address] [place] [address] Dr. Deepak Bahena #0.04 10e3/ulCritically high0.00-0.03[facility] Comment on above:Performed By: #### MG, CMP #### [facility] [address] [place] [address] Dr. Deepak GreenfieldIG %0.5 %Normal0.0-0.5ThCleveland Clinic Mercy HospitalComment on above: Performed By: #### MG, CMP #### [facility] [address] [place] [address] Dr. Deepak RicardoH #1.1 103/ulCritically low1.2-3.8The [facility] on above:Performed By: #### MG, CMP #### [facility] [address] [place] [address] Dr. Deepak Laumphocytes/100 WBC (Bld)13.6 %Critically low20.5-60.0[facility] CenterComment on above:Performed By: #### MG, CMP #### [facility] [address] [place] [address] Dr. Deepak Durham DIFF REQNONormalThe [facility] OhioComment on above: Performed By: #### MG, CMP #### [facility] [address] [place] [address] Dr. Deepak Schwartz (RBC) [Entitic mass]32.2 oyVtxcsk86.9-34.0The [facility] Ohio[facility] on above:Performed By: #### MG, CMP #### [facility] [address] [place] [address] Dr. Deepak Schwartz (RBC) [Mass/Vol]32.6 g/tJCilidc75.9-35.2The [facility] OhioComment on above:Performed By: #### MG, CMP #### [facility] [address] [place] [address] Dr. Deepak Schwartz (RBC) [Entitic vol]98.8 fLCritically high80.0-94.0The [facility] OhioComment on above:Performed By: #### MG, CMP #### [facility] [address] [place] [address] Dr. Deepak Morel #0.3 103/ulNormal0.3-0.8The [facility] OhioComment on above:Performed By: #### MG, CMP #### [facility] [address] [place] [address] Dr. Deepak Santosocytes/100 WBC (Bld)3.8 %Normal1.7-12.0[facility] Comment on above:Performed By: #### MG, CMP #### [facility] [address] [place] [address] Dr. Deepak Gifford #6.7 103/ulCritically high1.4-6.5The [facility] Comment on above:Performed By: #### MG, CMP #### [facility] [address] [place] [address] Dr. Deepak Mongeutrophils/100 WBC (Bld)81.9 %Critically high43.0-75.0The [facility] Ohio[facility] on above:Performed By: #### MG, CMP #### [facility] [address] [place] [address] Dr. Deepak Stanfordlet mean volume (Bld) [Entitic vol]9.6 fLNormal9.5-13.5The [facility] on above:Performed By: #### MG, CMP #### [facility] [address] [place] [address] Dr. Deepak GreenfieldPLT257 103/inJjenya222-808Ypv [facility] on above: Performed By: #### MG, CMP #### [facility] [address] [place] [address] Dr. Deepak GreenfieldRBC3.35 106/ulCritically low4.70-6.10The [facility] on above:Performed By: #### MG, CMP #### [facility] [address] [place] [address] Dr. Deepak GreenfieldWBC8.2 103/ulNormal4.0-11.0The [facility] on above: Performed By: #### MG, CMP #### [facility] [address] [place] [address] Dr. Deepak GreenfieldLACTATE/LACTIC ACIDon 95-66-5417Wqmqcpq [Moles/Vol]1.1 mmol/L Normal0.4-2.0The [facility] on above:Performed By: #### INFLUAB #### [facility] [address] [place] [address] Dr. Deepak GreenfieldPROF CHEM 8 (BAS METB)on 98-92-7651Mnbaj gap [Moles/Vol]9.4 mmol/LNormalThe [facility] on above:Performed By: #### INFLUAB #### [facility] [address] [place] [address] Dr. Deepak GreenfieldCalcium [Mass/Vol]8.0 mg/dLCritically low8.5-10.1The [facility] on above:Performed By: #### INFLUAB #### [facility] [address] [address] [address] Deepak GreenfieldChloride [Moles/Vol]105 mmol/HXagssz13-706Kbc [facility] Comment on above:Performed By: #### INFLUAB #### [facility] [address] [place] [address] Dr. Deepak GreenfieldCO2 [Moles/Vol]30.7 mmol/OPohgpa19.0-32.0The [facility] Comment on above:Performed By: #### INFLUAB #### [facility] [address] [place] [address] Dr. Deepak GreenfieldCreatinine [Mass/Vol]0.66 mg/dLCritically low0.70-1.30The [facility] Ohio[facility] on above:Performed By: #### INFLUAB #### [facility] [address] [place] [address] Dr. Sotelo ChangEGFR-AF ZIMBABWEAN>60Normal>=60The [facility] on above:Performed By: #### INFLUAB #### [facility] [address] [place] [address] Dr. Deepak McallisterGFR-NON AF ZIMBABWEAN>60Normal>=60The [facility] Ohio[facility] on above:Performed By: #### INFLUAB #### [facility] [address] [place] [address] Dr. Deepak GreenfieldGlucose [Mass/Vol]177 mg/dLCritically pvev26-896Syi [facility] Ohio[facility] on above:Performed By: #### INFLUAB #### [facility] [address] [place] [address] Dr. Deepak GreenfieldPotassium [Moles/Vol]4.1 mmol/LNormal3.5-5.1The [facility] Comment on above:Performed By: #### INFLUAB #### [facility] [address] [place] [address] Dr. Deepak GreenfieldSodium [Moles/Vol]141 mmol/YGzbxyd512-306Bwp [facility] Comment on above:Performed By: #### INFLUAB #### [facility] [address] [place] [address] Dr. Deepak Murphy nitrogen [Mass/Vol]9.0 mg/dLNormal7.0-18.0The [facility] OhioComment on above:Performed By: #### INFLUAB #### [facility] [address] [place] [address] Dr. Deepak Murphy nitrogen/Creatinine [Mass ratio]13.6 mg/mgNormalThe [facility] OhioComment on above:Performed By: #### INFLUAB #### [facility] [address] [place] [address] Dr. Deepak GreenfieldAMMONIAon 59-50-8495Kwyktia (P) [Moles/Vol]68 umol/LCritically uqyo73-48Kqe [facility] Ohio[facility] on above:Performed By: #### BMP #### [facility] [address] [place] [address] Dr. Deepak GossC AUTO DIFFon 87-65-4258LKTM #0.0 103/ulNormal0.0-0.1The [facility] Ohio[facility] on above:Performed By: #### CBC #### [facility] [address] [place] [address] Dr. Deepak GreenfieldBasophils/100 WBC (Bld)0.3 %Normal0.2-2.0The [facility] on above:Performed By: #### CBC #### [facility] [address] [place] [address] Dr. Deepak Boothe #0.0 103/ulNormal0.0-0.7The [facility] Ohio[facility] on above: Performed By: #### CBC #### [facility] [address] [place] [address] Dr. Deepak Mcallisterosinophils/100 WBC (Bld)0.0 %Critically low0.9-7.0The [facility] on above:Performed By: #### CBC #### [facility] [address] [place] [address] Dr. Deepak Mcallisterrythrocyte distribution width (RBC) [Ratio]13.3 %Hurmea06.0-15.0 The [facility] OhioComment on above:Performed By: #### CBC #### [facility] [address] [address] [address] Deepak Burlesonatocrit (Bld) [Volume fraction]37.0 %Critically low42.0-54.0 The [facility] Ohio[facility] on above:Performed By: #### CBC #### [facility] [address] [address] [address] Deepak GreenfieldHemoglobin (Bld) [Mass/Vol]12.3 g/dLCritically low14.0-18.0The [facility] OhioComment on above:Performed By: #### CBC #### [facility] [address] [place] [address] Dr. Deepak Bahena #0.06 10e3/ulCritically high0.00-0.03The [facility] Comment on above:Performed By: #### CBC #### [facility] [address] [place] [address] Dr. Deepak Bahena %0.5 %Normal0.0-0.5The [facility] on above: Performed By: #### CBC #### [facility] [address] [place] [address] Dr. Deepak Dong #2.9 103/ulNormal1.2-3.8The [facility]ment on above:Performed By: #### CBC #### [facility] [address] [place] [address] Dr. Deepak Laumphocytes/100 WBC (Bld)23.5 %Kxzbrc54.5-60.0The [facility] on above:Performed By: #### CBC #### [facility] [address] [place] [address] Dr. Deepak MendozaUAL DIFF REQNONormalThe [facility] OhioComment on above: Performed By: #### CBC #### [facility] [address] [place] [address] Dr. Deepak Cadet (RBC) [Entitic mass]32.4 hiXuqrze99.9-34.0The [facility] OhioComment on above:Performed By: #### CBC #### [facility] [address] [place] [address] Dr. Deepak Schwartz (RBC) [Mass/Vol]33.2 g/yDKqhzyc96.9-35.2The [facility] OhioComment on above:Performed By: #### CBC #### [facility] [address] [place] [address] Dr. Deepak Schwartz (RBC) [Entitic vol]97.4 fLCritically high80.0-94.0The [facility] OhioComment on above:Performed By: #### CBC #### [facility] [address] [place] [address] Dr. Deepak Morel #1.0 103/ulCritically high0.3-0.8The [facility] Comment on above:Performed By: #### CBC #### [facility] [address] [place] [address] Dr. Deepak Santosocytes/100 WBC (Bld)8.0 %Normal1.7-12.0The [facility] Comment on above:Performed By: #### CBC #### [facility] [address] [place] [address] Dr. Deepak Gifford #8.3 103/ulCritically high1.4-6.5The [facility] Comment on above:Performed By: #### CBC #### [facility] [address] [place] [address] Dr. Deepak Mongeutrophils/100 WBC (Bld)67.7 %Oammsp19.0-75.0The [facility] OhioComment on above:Performed By: #### CBC #### [facility] [address] [place] [address] Dr. Deepak Stanfordlet mean volume (Bld) [Entitic vol]9.7 fLNormal9.5-13.5The [facility] OhioComment on above:Performed By: #### CBC #### [facility] [address] [place] [address] Dr. Deepak GreenfieldPLT325 103/lzByyhge030-673Bzv [facility] OhioComment on above: Performed By: #### CBC #### [facility] [address] [place] [address] Dr. Deepak GreenfieldRBC3.80 106/ulCritically low4.70-6.10The [facility] OhioComment on above:Performed By: #### CBC #### [facility] [address] [place] [address] Dr. Deepak GreenfieldWBC12.2 103/ulCritically high4.0-11.0The [facility] OhioComment on above:Performed By: #### CBC #### [facility] [address] [place] [address] Dr. Deepak Lora BLOODon 19-16-1642Hioukzrxjxq examination of blood, cultureCulture Observations: NO GROWTH AT 5 DAYS.NormalThe [facility] OhioComment on above:Performed By: #### BLDCX2 #### [facility] [address] [place] [address] Dr. Deepak GreenfieldMicroscopic examination of blood, cultureCulture Observations: NO GROWTH AT 5 DAYS.NormalThe [facility] OhioComment on above:Performed By: #### CBC #### [facility] [address] [place] [address] Dr. Deepak GreenfieldLACTATE/LACTIC ACIDon 90-30-9050Qcqzdmy [Moles/Vol]2.5 mmol/L Critically high0.4-2.0The [facility] OhioComment on above:Performed By: #### CVDTBH #### [facility] [address] [place] [address] Dr. Deepak GreenfieldPROF 14(COMP METB)on 63-66-0970Jmfbrnu [Mass/Vol]3.1 g/dL Critically low3.4-5.0The [facility] on above:Performed By: #### CBC #### [facility] [address] [place] [address] Dr. Deepak GreenfieldAlbumin/Globulin [Mass ratio]0.7 {ratio}NormalThe [facility] OhioComment on above:Performed By: #### CBC #### [facility] [address] [address] [address] Deepak Brady [Catalytic activity/Vol]51 U/ONpbcsw24-856Mlo [facility] OhioComment on above:Performed By: #### CBC #### [facility] [address] [address] [address] Deepak ReedT [Catalytic activity/Vol]106 U/LCritically avyt91-49Qeb [facility] OhioComment on above:Performed By: #### CBC #### [facility] [address] [address] [address] Deepak Decker gap [Moles/Vol]14.2 mmol/LNormalThe [facility] Comment on above:Performed By: #### CBC #### [facility] [address] [address] [address] Deepak GreenfieldAST [Catalytic activity/Vol]81 U/LCritically koib71-63Vqy [facility] OhioComment on above:Performed By: #### CBC #### [facility] [address] [address] [address] Deepak GreenfieldBilirubin [Mass/Vol]0.4 mg/dLNormal0.2-1.0The [facility] Comment on above:Performed By: #### CBC #### [facility] [address] [address] [address] Deepak GreenfieldCalcium [Mass/Vol]8.9 mg/dLNormal8.5-10.1The [facility] Comment on above:Performed By: #### CBC #### [facility] [address] [address] [address] Deepak GreenfieldChloride [Moles/Vol]105 mmol/HFjxsjt09-272Ikr [facility] Comment on above:Performed By: #### CBC #### [facility] [address] [address] [address] Deepak GreenfieldCO2 [Moles/Vol]27.9 mmol/GJjtozk61.0-32.0The [facility] Comment on above:Performed By: #### CBC #### [facility] [address] [address] [address] Deepak Roseatinine [Mass/Vol]0.77 mg/dLNormal0.70-1.30The [facility] OhioComment on above:Performed By: #### CBC #### [facility] [address] [address] [address] Deepak McallisterGFR-AF ZIMBABWEAN>60Normal>=60The [facility] OhioComment on above:Performed By: #### CBC #### [facility] [address] [address] [address] Deepak McallisterGFR-NON AF ZIMBABWEAN>60Normal>=60The [facility] OhioComment on above:Performed By: #### CBC #### [facility] [address] [place] [address] Dr. Deepak GreenfieldGlobulin (S) [Mass/Vol]4.3 g/dLNormalThe [facility] OhioComment on above:Performed By: #### CBC #### [facility] [address] [place] [address] Dr. Deepak GreenfieldGlucose [Mass/Vol]162 mg/dLCritically opwm28-083Vlv [facility] OhioComment on above:Performed By: #### CBC #### [facility] [address] [place] [address] Dr. Deepak GreenfieldPotassium [Moles/Vol]4.1 mmol/LNormal3.5-5.1The [facility] Comment on above:Performed By: #### CBC #### [facility] [address] [place] [address] Dr. Deepak GreenfieldProtein [Mass/Vol]7.4 g/dLNormal6.4-8.2The [facility] Comment on above:Performed By: #### CBC #### [facility] [address] [place] [address] Dr. Deepak GreenfieldSodium [Moles/Vol]143 mmol/ANfvxei499-505Rqo [facility] Comment on above:Performed By: #### CBC #### [facility] [address] [place] [address] Dr. Deepak Murphy nitrogen [Mass/Vol]12.0 mg/dLNormal7.0-18.0The [facility] OhioComment on above:Performed By: #### CBC #### [facility] [address] [address] [address] Deepak Murphy nitrogen/Creatinine [Mass ratio]15.6 mg/mgNormalThe [facility] OhioComment on above:Performed By: #### CBC #### [facility] [address] [address] [address] Deepak GreenfieldRESPIRATORY PANEL PLUSon 70-62-7758OmbzlkgxyjQzi detectedNormal NOT DETECTEDThe [facility] OhioComment on above:Performed By: #### BMP #### [facility] [address] [place] [address] Dr. Deepak Olson ParapertusisNot detectedNormalNOT DETECTEDThe [facility] OhioComment on above:Performed By: #### BMP #### [facility] [address] [place] [address] Dr. Deepak Olson PertussisNot detectedNormalNOT DETECTEDThe [facility] on above:Performed By: #### BMP #### [facility] [address] [place] [address] Dr. Deepak GreenfieldChlamydia PneumoniaeNot detectedNormalNOT DETECTEDThe [facility] OhioComment on above:Performed By: #### BMP #### [facility] [address] [place] [address] Dr. Deepak GreenfieldCoronavirus 229ENot detectedNormalNOT DETECTEDThe [facility]Comment on above:Performed By: #### BMP #### [facility] [address] [place] [address] Dr. Deepak GreenfieldCoronavirus MIT9Wlo detectedNormalNOT DETECTEDThe [facility]Comment on above:Performed By: #### BMP #### [facility] [address] [place] [address] Dr. Deepak GreenfieldCoronavirus BG49Cuh detectedNormalNOT DETECTEDThe [facility]Comment on above:Performed By: #### BMP #### [facility] [address] [address] [address] Deepak GreenfieldCoronavirus HD93Lha detectedNormalNOT DETECTEDThe [facility] OhioComment on above:Performed By: #### BMP #### [facility] [address] [address] [address] Deepak Ruiz A H1Not detectedNormalNOT DETECTEDThe [facility] Comment on above:Performed By: #### BMP #### [facility] [address] [address] [address] Deepak Duran H1 2009Not detectedNormalNOT DETECTEDThe [facility] OhioComment on above:Performed By: #### BMP #### [facility] [address] [address] [address] Deepak Duran H3Not detectedNormalNOT DETECTEDThe [facility] Comment on above:Performed By: #### BMP #### [facility] [address] [address] [address] Deepak Ruiz BNot detectedNormalNOT DETECTEDThe [facility] Comment on above:Performed By: #### BMP #### [facility] [address] [address] [address] Deepak McphersonapneumovirusDetectedAbnormalNOT DETECTEDThe [facility] Comment on above:Performed By: #### BMP #### [facility] [address] [address] [address] Deepak Richardson. PneumoniaeNot detectedNormalNOT DETECTEDThe [facility] OhioComment on above:Performed By: #### BMP #### [facility] [address] [address] [address] Deepak Bonner 1Not detectedNormalNOT DETECTEDThe [facility] on above:Performed By: #### BMP #### [facility] [address] [address] [address] Deepak Bonner 2Not detectedNormalNOT DETECTEDThe [facility] OhioComment on above:Performed By: #### BMP #### [facility] [address] [address] [address] Deepak Bonner 3Not detectedNormalNOT DETECTEDThe [facility] on above:Performed By: #### BMP #### [facility] [address] [place] [address] Dr. Deepak Bonner 4Not detectedNormalNOT DETECTEDThe [facility] on above:Performed By: #### BMP #### [facility] [address] [address] [address] Deepak GreenfieldRhelvis/EnterovirusNot detectedNormalNOT DETECTEDThe [facility] on above:Performed By: #### BMP #### [facility] [address] [place] [address] Dr. Deepak Daniels2 Header 1RESPIRATORY PANEL: [facility]ESProv[facility] on above:Performed By: #### BMP #### [facility] [address] [place] [address] Dr. Deepak Hoyos Header 2RESPIRATORY PANEL: BACTERIANoKnox Community HospitalComment on above:Performed By: #### BMP #### [facility] [address] [place] [address] Dr. Deepak RichterVNot detectedNormalNOT DETECTEDThe [facility] on above:Performed By: #### BMP #### [facility] [address] [place] [address] Dr. Deepak Ahn-CoV-2 (COVID-19) RNA CINDY+probe Ql (Unsp spec)Not detected NormalNOT DETECTEDThe [facility] on above:Performed By: #### BMP #### [facility] [address] [place] [address] Dr. Deepak GreenfieldXR CHEST 1 Von 73-96-6511ZN CHEST 1 VONE-VIEW CHEST RADIOGRAPH, 07/28/2022 7:44 PM EDT COMPARISON: [...] Electronically authenticated by: Akua PEREZ Date: 2022-07-28 20:23[facility] HospitalONIAon 20-16-2405Eibwgxl (P) [Moles/Vol]76 umol/LCritically kjiu17-25Dge [facility] OhioComment on above:Performed By: #### MG, CMP #### [facility] [address] [place] [address] Dr. Deepak Brand W MANUAL DIFFon 66-44-9865IZZAZSAU LYMPH #NormalThe [facility] OhioComment on above:Performed By: #### MG, CMP #### [facility] [address] [place] [address] Dr. Deepak SouthYPICAL LYMPH %NormalThe [facility] OhioComment on above: Performed By: #### MG, CMP #### [facility] [address] [place] [address] Dr. Deepak Dow #0.4 103/ulCritically high0.0-0.3The [facility] Comment on above:Performed By: #### MG, CMP #### [facility] [address] [place] [address] Dr. Deepak Dow %4 %Normal0-5The [facility] OhioComment on above:Performed By: #### MG, CMP #### [facility] [address] [place] [address] Dr. Deepak Farah #0.00 103/ulNormal0.00-0.10The [facility] OhioComment on above:Performed By: #### MG, CMP #### [facility] [address] [place] [address] Dr. Deepak Farah %0.0 %Critically low0.2-2.0The [facility] on above:Performed By: #### MG, CMP #### [facility] [address] [place] [address] Dr. Deepak Love #NormalThe [facility] OhioComment on above:Performed By: #### MG, CMP #### [facility] [address] [place] [address] Dr. Deepak Love %NormalThe [facility] OhioComment on above:Performed By: #### MG, CMP #### [facility] [address] [place] [address] Dr. Deepak GreenfieldCORRECTED WBCNormal4.0-11.0The [facility] OhioComment on above: Performed By: #### MG, CMP #### [facility] [address] [place] [address] Dr. Deepak Hernandez #0.00 103/ulNormal0.00-0.70The [facility] OhioComment on above:Performed By: #### MG, CMP #### [facility] [address] [place] [address] Dr. Deepak Hernandez%0.0 %Critically low0.9-7.0The [facility] OhioComment on above:Performed By: #### MG, CMP #### [facility] [address] [place] [address] Dr. Deepak GreenfieldHCT29.6 %Critically low42.0-54.0The [facility] OhioComment on above:Performed By: #### MG, CMP #### [facility] [address] [place] [address] Dr. Deepak GreenfieldHGB10.4 g/dlCritically low14.0-18.0The [facility] OhioComment on above:Performed By: #### MG, CMP #### [facility] [address] [place] [address] Dr. Deepak De Jesus #0.71 103/ulCritically low1.20-3.80The [facility] on above:Performed By: #### MG, CMP #### [facility] [address] [place] [address] Dr. Deepak De Jesus%8.0 %Critically low20.5-60.0The [facility] OhioComment on above:Performed By: #### MG, CMP #### [facility] [address] [place] [address] Dr. Deepak SchwartzH33.0 zdOiityi79.9-34.0The [facility] HospitalComment on above: Performed By: #### MG, CMP #### [facility] [address] [place] [address] Dr. Deepak SchwartzHC35.1 g/vnAhgybz71.9-35.2The [facility] OhioComment on above:Performed By: #### MG, CMP #### [facility] [address] [place] [address] Dr. Deepak SchwartzV94.0 qZLzcavy92.0-94.0The [facility] on above: Performed By: #### MG, CMP #### [facility] [address] [place] [address] Dr. Deepak CarmonaELOCYTE #NormalThe [facility]Comment on above: Performed By: #### MG, CMP #### [facility] [address] [place] [address] Dr. Deepak McphersonAMYELOCYTE %NormalThe [facility] OhioComment on above: Performed By: #### MG, CMP #### [facility] [address] [place] [address] Dr. Deepak Dunn#0.71 103/ulNormal0.30-0.80The [facility]Comment on above:Performed By: #### MG, CMP #### [facility] [address] [place] [address] Dr. Deepak Dunn%8.0 %Normal1.7-12.0The [facility] OhioComment on above: Performed By: #### MG, CMP #### [facility] [address] [place] [address] Dr. Deepak NavaV9.6 fLNormal9.5-13.5The [facility]Comment on above: Performed By: #### MG, CMP #### [facility] [address] [place] [address] Dr. Deepak Sargent #NormalThe [facility] HospitalComment on above:Performed By: #### MG, CMP #### [facility] [address] [place] [address] Dr. Deepak GutierrezOCYTE %NormalThe [facility] HospitalComment on above:Performed By: #### MG, CMP #### [facility] [address] [address] [address] Deepak NewellBCNormalThe [facility]Comment on above:Performed By: #### MG, CMP #### [facility] [address] [place] [address] Dr. Deepak GomezT267 103/tmHibukg256-769Nrb [facility] on above: Performed By: #### MG, CMP #### [facility] [address] [place] [address] Dr. Deepak GreenfieldRBC3.15 106/ulCritically low4.70-6.10The [facility] OhioComment on above:Performed By: #### MG, CMP #### [facility] [address] [place] [address] Dr. Deepak GreenfieldRDW12.9 %Nmbaqv91.0-15.0The [facility] OhioComment on above: Performed By: #### MG, CMP #### [facility] [address] [place] [address] Dr. Deepak Soto #7.12 103/ulCritically high1.40-6.50The [facility] Comment on above:Performed By: #### MG, CMP #### [facility] [address] [place] [address] Dr. Deepak Soto %80.0 %Critically high43.0-75.0The [facility] OhioComment on above:Performed By: #### MG, CMP #### [facility] [address] [place] [address] Dr. Deepak GreenfieldWBC8.9 103/ulNormal4.0-11.0The [facility] Ohio[facility] on above: Performed By: #### MG, CMP #### [facility] [address] [address] [address] Deepak EllisonF CHEM 8 (BAS METB)on 16-56-7781Lnqpl gap [Moles/Vol]12.4 mmol/LNormalThe [facility] OhioComment on above:Performed By: #### CBC #### [facility] [address] [place] [address] Dr. Deepak GreenfieldCalcium [Mass/Vol]8.2 mg/dLCritically low8.5-10.1The [facility] OhioComment on above:Performed By: #### CBC #### [facility] [address] [place] [address] Dr. Deepak GreenfieldChloride [Moles/Vol]101 mmol/QOyysfe29-484Klq [facility] Comment on above:Performed By: #### CBC #### [facility] [address] [place] [address] Dr. Deepak GreenfieldCO2 [Moles/Vol]25.0 mmol/BCscdxs81.0-32.0The [facility] Comment on above:Performed By: #### CBC #### [facility] [address] [place] [address] Dr. Deepak GreenfieldCreatinine [Mass/Vol]0.53 mg/dLCritically low0.70-1.30The [facility] OhioComment on above:Performed By: #### CBC #### [facility] [address] [place] [address] Dr. Deepak McallisterGFR-AF ZIMBABWEAN>60Normal>=60The [facility] OhioComment on above:Performed By: #### CBC #### [facility] [address] [place] [address] Dr. Deepak McallisterGFR-NON AF ZIMBABWEAN>60Normal>=60The [facility] Ohio[facility] on above:Performed By: #### CBC #### [facility] [address] [place] [address] Dr. Deepak GreenfieldGlucose [Mass/Vol]161 mg/dLCritically tkij19-569Zel [facility] OhioComment on above:Performed By: #### CBC #### [facility] [address] [address] [address] Deepak GreenfieldPotassium [Moles/Vol]4.4 mmol/LNormal3.5-5.1The [facility] Comment on above:Performed By: #### CBC #### [facility] [address] [address] [address] Deepak Fangdium [Moles/Vol]134 mmol/LCritically nfq117-072Zku [facility] OhioComment on above:Performed By: #### CBC #### [facility] [address] [place] [address] Dr. Deepak GreenfieldUrea nitrogen [Mass/Vol]13.0 mg/dLNormal7.0-18.0The [facility] OhioComment on above:Performed By: #### CBC #### [facility] [address] [place] [address] Dr. Deepak Murphy nitrogen/Creatinine [Mass ratio]24.5 mg/mgNormalThe [facility] OhioComment on above:Performed By: #### CBC #### [facility] [address] [place] [address] Dr. Deepak [place]IA[place]ita [id number] (P) [Moles/Vol]56 umol/LCritically aqze59-28Fyv [facility] OhioComment on above:Performed By: #### MG, CMP #### [facility] [address] [place] [address] Dr. Deepak Silva BEATRIS ADMITon [id number] [Catalytic activity/Vol]83 U/L Cirxea40-202Izx [facility] OhioComment on above:Performed By: #### BMP #### [facility] [address] [place] [address] Dr. Deepak Julian.MB [Mass/Vol]0.86 ng/mLNormal<=3.60The [facility] Comment on above:Performed By: #### BMP #### [facility] [address] [place] [address] Dr. Deepak GreenfieldHSTROP7.4 pg/mLNormal4.0-76.1[facility] on above:Result Comment: CUT-OFF POINTS HAVE BEEN ESTABLISHED BASED ON THE FOURTH UNIVERSAL DEFINITIONS OF MYOCARDIAL INFARCTION. THE UPPER REFERENCE LIMIT (URL) OF TROPONIN, DEFINED THE 99TH PERCENTILE OF cTnI DISTRIBUTION IN A REFERENCE POPULATION, HAS BEEN CONFIRMED THE DECISION THRESHOLD FOR OR DIAGNOSIS.Performed By: #### BMP #### [facility] [address] [place] [address] Dr. Deepak GreenfieldMYO46 ng/xEUfvsci82-72Epi [facility] OhioComment on above: Performed By: #### BMP #### [facility] [address] [place] [address] Dr. Deepak Brand AUTO DIFFon 29-20-9741EAAS #0.1 103/ulNormal0.0-0.1The [facility] OhioComment on above:Performed By: #### MG, CMP #### [facility] [address] [place] [address] Dr. Deepak GreenfieldBasophils/100 WBC (Bld)0.5 %Normal0.2-2.0[facility] Comment on above:Performed By: #### MG, CMP #### [facility] [address] [place] [address] Dr. Deepak Boothe #0.2 103/ulNormal0.0-0.7The [facility] OhioComment on above: Performed By: #### MG, CMP #### [facility] [address] [place] [address] Dr. Deepak Mcallisterosinophils/100 WBC (Bld)2.1 %Normal0.9-7.0The [facility] Comment on above:Performed By: #### MG, CMP #### [facility] [address] [place] [address] Dr. Deepak Mcallisterrythrocyte distribution width (RBC) [Ratio]13.2 %Mtwquv89.0-15.0 The [facility] HospitalComment on above:Performed By: #### MG, CMP #### [facility] [address] [place] [address] Dr. Deepak GreenfieldHematocrit (Bld) [Volume fraction]36.7 %Critically low42.0-54.0 The [facility] HospitalComment on above:Performed By: #### MG, CMP #### [facility] [address] [place] [address] Dr. Deepak GreenfieldHemoglobin (Bld) [Mass/Vol]12.4 g/dLCritically low14.0-18.0The [facility] OhioComment on above:Performed By: #### MG, CMP #### [facility] [address] [place] [address] Dr. Deepak Bahena #0.04 10e3/ulCritically high0.00-0.03The [facility] Comment on above:Performed By: #### MG, CMP #### [facility] [address] [place] [address] Dr. Deepak Bahena %0.4 %Normal0.0-0.5The [facility] OhioComment on above: Performed By: #### MG, CMP #### [facility] [address] [place] [address] Dr. Deepak Dong #1.7 103/ulNormal1.2-3.8The [facility] OhioComment on above:Performed By: #### MG, CMP #### [facility] [address] [place] [address] Dr. Deepak Ricardohocytes/100 WBC (Bld)15.6 %Critically low20.5-60.0The [facility] OhioComment on above:Performed By: #### MG, CMP #### [facility] [address] [place] [address] Dr. Deepak MendozaUAL DIFF REQNONormalThe [facility] OhioComment on above: Performed By: #### MG, CMP #### [facility] [address] [place] [address] Dr. Deepak Cadet (RBC) [Entitic mass]32.5 blIrgjer81.9-34.0The [facility] OhioComment on above:Performed By: #### MG, CMP #### [facility] [address] [place] [address] Dr. Deepak cShwartz (RBC) [Mass/Vol]33.8 g/iGQghfpa23.9-35.2The [facility] OhioComment on above:Performed By: #### MG, CMP #### [facility] [address] [place] [address] Dr. Deepak Flores (RBC) [Entitic vol]96.3 fLCritically high80.0-94.0The [facility] OhioComment on above:Performed By: #### MG, CMP #### [facility] [address] [place] [address] Dr. Deepak Morel #1.4 103/ulCritically high0.3-0.8The [facility] Comment on above:Performed By: #### MG, CMP #### [facility] [address] [place] [address] Dr. Deepak Santosocytes/100 WBC (Bld)12.8 %Critically high1.7-12.0The [facility] OhioComment on above:Performed By: #### MG, CMP #### [facility] [address] [place] [address] Dr. Deepak Gifford #7.4 103/ulCritically high1.4-6.5The [facility] Comment on above:Performed By: #### MG, CMP #### [facility] [address] [place] [address] Dr. Deepak Mongeutrophils/100 WBC (Bld)68.6 %Bprieh46.0-75.0The [facility] OhioComment on above:Performed By: #### MG, CMP #### [facility] [address] [place] [address] Dr. Deepak Huffman mean volume (Bld) [Entitic vol]9.5 fLNormal9.5-13.5The [facility] OhioComment on above:Performed By: #### MG, CMP #### [facility] [address] [place] [address] Dr. Deepak GreenfieldPLT314 103/enAwakph878-328Vzk [facility] OhioComment on above: Performed By: #### MG, CMP #### [facility] [address] [place] [address] Dr. Deepak GreenfieldRBC3.81 106/ulCritically low4.70-6.10The [facility] OhioComment on above:Performed By: #### MG, CMP #### [facility] [address] [place] [address] Dr. Deepak GreenfieldWBC10.8 103/ulNormal4.0-11.0The [facility] OhioComment on above:Performed By: #### MG, CMP #### [facility] [address] [place] [address] Dr. Deepak Peña-19 PCR (CVDTBH)on 15-08-1763OAZF-CoV-2 (COVID-19) RNA CINDY+probe Ql (Unsp spec)Not detectedNormalNOT DETECTEDThe [facility] Comment on above:Result Comment: When diagnostic testing is negative, the [...] for this test is supported by the [place] of Health and Human Service's declaration that circumstances exist to justify the emergency use of in vitro diagnostics for the detection and/or diagnosis of the virus that causes COVID-19. This EUA will remain in effect for the duration of the COVID-19 declaration justifying emergency of IVDs, unless it is terminated or revoked by the FDA (after which the test may no longer be used).Performed By: #### CVDTBH #### [facility] [address] [place] [address] Dr. Deepak PIPER AGon 87-67-6452XDNJCREHWREXL [facility] Hospitalment on above:Result Comment: Negative for Flu A protein angiten. Infection due to Flu A cannot be ruled out. FluA angiten in the sample may be below the detection limit of the test.Performed By: #### INFLUAB #### [facility] [address] [place] [address] Dr. Deepak KhalilUBNEGHSNATACHA [facility] on above: Result Comment: Negative for Flu B protein antigen. Infection due to Flu B cannot be ruled out. FluB antigen in the sample may be below the detection limit of the test.Performed By: #### INFLUAB #### [facility] [address] [place] [address] Dr. Deepak Ruiz A AGNegativeNormalNEGATIVE SEE COMMENTThe [facility] on above:Performed By: #### INFLUAB #### [facility] [address] [place] [address] Dr. Deepak Ruiz B AGNegativeNormalNEGATIVE SEE COMMENTThe [facility] on above:Performed By: #### INFLUAB #### [facility] [address] [place] [address] Dr. Deepak GreenfieldLACTATE/LACTIC ACIDon 54-31-5877Caveuvf [Moles/Vol]1.2 mmol/L Normal0.4-2.0The [facility] on above:Performed By: #### MG, CMP #### [facility] [address] [place] [address] Dr. Deepak GreenfieldPROF 14(COMP METB)on 29-13-3866Jtfmyfv [Mass/Vol]3.3 g/dL Critically low3.4-5.0The [facility] on above:Performed By: #### BMP #### [facility] [address] [place] [address] Dr. Deepak GreenfieldAlbumin/Globulin [Mass ratio]0.8 {ratio}NormalThe [facility] on above:Performed By: #### BMP #### [facility] [address] [address] [address] Deepak ReedP [Catalytic activity/Vol]45 U/LCritically itw20-000Pdc [facility] OhioComment on above:Performed By: #### BMP #### [facility] [address] [address] [address] Deepak ReedT [Catalytic activity/Vol]114 U/LCritically joce85-75Jrp [facility] OhioComment on above:Performed By: #### BMP #### [facility] [address] [address] [address] Deepak Decker gap [Moles/Vol]14.5 mmol/LNormalThe [facility] Comment on above:Performed By: #### BMP #### [facility] [address] [address] [address] Deepak GreenfieldAST [Catalytic activity/Vol]71 U/LCritically rqux31-38Dxl [facility] OhioComment on above:Performed By: #### BMP #### [facility] [address] [address] [address] Deepak GreenfieldBilirubin [Mass/Vol]0.7 mg/dLNormal0.2-1.0The [facility] Comment on above:Performed By: #### BMP #### [facility] [address] [address] [address] Deepak GreenfieldCalcium [Mass/Vol]9.1 mg/dLNormal8.5-10.1The [facility] Comment on above:Performed By: #### BMP #### [facility] [address] [address] [address] Deepak GreenfieldChloride [Moles/Vol]98 mmol/WKkyzdx00-543Eoh [facility] Comment on above:Performed By: #### BMP #### [facility] [address] [address] [address] Deepak GreenfieldCO2 [Moles/Vol]27.4 mmol/BLnujrc63.0-32.0The [facility] Comment on above:Performed By: #### BMP #### [facility] [address] [place] [address] Dr. Deepak GreenfieldCreatinine [Mass/Vol]0.65 mg/dLCritically low0.70-1.30The [facility] OhioComment on above:Performed By: #### BMP #### [facility] [address] [place] [address] Dr. Deepak McallisterGFR-AF ZIMBABWEAN>60Normal>=60The [facility] OhioComment on above:Performed By: #### BMP #### [facility] [address] [place] [address] Dr. Deepak McallisterGFR-NON AF ZIMBABWEAN>60Normal>=60The [facility] OhioComment on above:Performed By: #### BMP #### [facility] [address] [place] [address] Dr. Deepak GreenfieldGlobulin (S) [Mass/Vol]4.2 g/dLNormalThe [facility] OhioComment on above:Performed By: #### BMP #### [facility] [address] [place] [address] Dr. Deepak GreenfieldGlucose [Mass/Vol]105 mg/fEGlbrns25-984JafUniversity Hospitals St. [facility] Comment on above:Performed By: #### BMP #### [facility] [address] [place] [address] Dr. Deepak rGeenfieldPotassium [Moles/Vol]3.9 mmol/LNormal3.5-5.1[facility] Comment on above:Performed By: #### BMP #### [facility] [address] [place] [address] Dr. Deepak GreenfieldProtein [Mass/Vol]7.5 g/dLNormal6.4-8.2[facility] Comment on above:Performed By: #### BMP #### [facility] [address] [place] [address] Dr. Deepak GreenfieldSodium [Moles/Vol]136 mmol/OEaeagk828-135JxaUniversity Hospitals St. [facility] Comment on above:Performed By: #### BMP #### [facility] [address] [place] [address] Dr. Yilan ChangUrea nitrogen [Mass/Vol]13.0 mg/dLNormal7.0-18.0[facility] CenterComment on above:Performed By: #### BMP #### [facility] [address] [address] [address] Deepak Murphy nitrogen/Creatinine [Mass ratio]20.0 mg/mgNoKnox Community HospitalComment on above:Performed By: #### BMP #### [facility] [address] [address] [address] Deepak GreenfieldXR CHEST 1 Von 12-00-9763AZ CHEST 1 VEXAM: Chest x-ray HISTORY: . SHORTNESS OF BREATH [...] Electronically authenticated by: ANICETO GARCIA Date: 2022-07-26 12:27[facility] HospitalConsent for Treatmenton 90-42-2462Qwpvjeg for Treatment [id number]:127[facility] CenterPhysician Orderon 21-93-0579Hohvcqsje Order [id number]#1.00CD:127[facility] Medical CenterXR Adult Swallowing Function w/ Videoon 57-45-8222UO Adult Swallowing Function w/ VideoExam Date/Time: 07/23/2022 10:00 EDT Reason for Exam: [...] Signature): 07/23/2022 11:52 am Signed by: Fam Viramotnes MD Transcribed by: CAMI Technologist: SARAVANAN Technical Comments Radiation Dose: Kar in mGy = 11.70 DAP = 270.92[facility]'s Medical CenterAMMONIAon 47-19-7935Iansawu (P) [Moles/Vol]112 umol/LCritically csfc88-91Yao [facility] OhioComment on above: Performed By: #### AMM #### [facility] [address] [place] [address] Dr. Deepak AguileraPAKENE/ VALPROIC ACIDon 54-51-2378TLTXHDDP83.0 ug/mlNormal 50.0-100.0The [facility] OhioComment on above:Performed By: #### CBC #### [facility] [address] [place] [address] Dr. Deepak Smith PROFILEon 05-66-8863Swmnwbk [Mass/Vol]3.6 g/dLNormal3.4-5.0 The [facility] OhioComment on above:Performed By: #### CBC #### [facility] [address] [place] [address] Dr. Deepak GreenfieldAlbumin/Globulin [Mass ratio]0.9 {ratio}NormalThe [facility] OhioComment on above:Performed By: #### CBC #### [facility] [address] [place] [address] Dr. Deepak GreenfieldALP [Catalytic activity/Vol]55 U/KOzyawm07-937Gvi [facility] Centerment on above:Performed By: #### CBC #### [facility] [address] [address] [address] Deepak Mack [Catalytic activity/Vol]76 U/LCritically bzdn16-99Ypg [facility] Centerment on above:Performed By: #### CBC #### [facility] [address] [address] [address] Deepak Mcgee [Catalytic activity/Vol]51 U/LCritically mydm98-70Zbk [facility] OhioComment on above:Performed By: #### CBC #### [facility] [address] [address] [address] Deepak LynnI, CONJUGATED0.1 mg/dLNormal0.0-0.2The [facility] Comment on above:Performed By: #### CBC #### [facility] [address] [place] [address] Dr. Deepak Lynnirubin [Mass/Vol]0.4 mg/dLNormal0.2-1.0The [facility] Comment on above:Performed By: #### CBC #### [facility] [address] [address] [address] Deepak GreenfieldGlobulin (S) [Mass/Vol]4.1 g/dLNormalThe [facility] OhioComascension standish hospital on above:Performed By: #### CBC #### [facility] [address] [address] [address] Deepak GreenfieldProtein [Mass/Vol]7.7 g/dLNormal6.4-8.2The [facility] Comment on above:Performed By: #### CBC #### [facility] [address] [address] [address] Deepak GreenfieldAMMONIAon 73-31-7538Mfiidss (P) [Moles/Vol]108 umol/LCritically zpyk51-15Llv [facility] OhioComment on above:Performed By: #### BMP #### [facility] [address] [place] [address] Dr. Deepak GossC AUTO DIFFon 87-95-4626PPFD #0.0 103/ulNormal0.0-0.1The [facility] OhioComment on above:Performed By: #### CBC #### [facility] [address] [place] [address] Dr. Deepak Mtzsophils/100 WBC (Bld)0.5 %Normal0.2-2.0[facility] Comment on above:Performed By: #### CBC #### [facility] [address] [place] [address] Dr. Deepak Boothe #0.1 103/ulNormal0.0-0.7The [facility] OhioComment on above: Performed By: #### CBC #### [facility] [address] [place] [address] Dr. Deepak Mcallisterosinophils/100 WBC (Bld)1.4 %Normal0.9-7.0The [facility] Comment on above:Performed By: #### CBC #### [facility] [address] [place] [address] Dr. Deepak Mcallisterrythrocyte distribution width (RBC) [Ratio]14.2 %Kytlyd15.0-15.[address] [facility] Medical CenterComment on above:Performed By: #### CBC #### [facility] [address] [place] [address] Dr. Deepak Burlesonatocrit (Bld) [Volume fraction]37.0 %Critically low42.0-54.[address] [facility] Medical CenterComment on above:Performed By: #### CBC #### [facility] [address] [place] [address] Dr. Deepak GreenfieldHemoglobin (Bld) [Mass/Vol]12.3 g/dLCritically low14.0-18.0[facility] Medical CenterComment on above:Performed By: #### CBC #### [facility] [address] [place] [address] Dr. Deepak Bahena #0.00 10e3/ulNormal0.00-0.03The [facility] OhioComment on above:Performed By: #### CBC #### [facility] [address] [place] [address] Dr. Deepak Bahena %0.0 %Normal0.0-0.5The [facility] OhioComment on above: Performed By: #### CBC #### [facility] [address] [place] [address] Dr. Deepak Dong #3.3 103/ulNormal1.2-3.8The [facility] OhioComment on above:Performed By: #### CBC #### [facility] [address] [place] [address] Dr. Deepak Ricardohocytes/100 WBC (Bld)51.5 %Crwzvl91.5-60.0The [facility] OhioComment on above:Performed By: #### CBC #### [facility] [address] [place] [address] Dr. Deepak Durham DIFF REQNONormalThe [facility] OhioComment on above: Performed By: #### CBC #### [facility] [address] [place] [address] Dr. Deepak Cadet (RBC) [Entitic mass]32.2 wkHubsmu93.9-34.0The [facility] OhioComment on above:Performed By: #### CBC #### [facility] [address] [place] [address] Dr. Deepak Schwartz (RBC) [Mass/Vol]33.2 g/eZFwqpjy66.9-35.2The [facility] OhioComment on above:Performed By: #### CBC #### [facility] [address] [place] [address] Dr. Deepak Schwartz (RBC) [Entitic vol]96.9 fLCritically high80.0-94.0The [facility] OhioComment on above:Performed By: #### CBC #### [facility] [address] [place] [address] Dr. Deepak Morel #0.6 103/ulNormal0.3-0.8The [facility] OhioComment on above:Performed By: #### CBC #### [facility] [address] [place] [address] Dr. Deepak Santosocytes/100 WBC (Bld)9.7 %Normal1.7-12.0The [facility] Comment on above:Performed By: #### CBC #### [facility] [address] [place] [address] Dr. Deepak MongeUT #2.4 103/ulNormal1.4-6.5The [facility] OhioComment on above:Performed By: #### CBC #### [facility] [address] [place] [address] Dr. Deepak Mongeutrophils/100 WBC (Bld)36.9 %Critically low43.0-75.0The [facility] OhioComment on above:Performed By: #### CBC #### [facility] [address] [place] [address] Dr. Deepak GreenfieldPlatelet mean volume (Bld) [Entitic vol]10.2 fLNormal9.5-13.5The [facility] OhioComment on above:Performed By: #### CBC #### [facility] [address] [place] [address] Dr. Deepak GreenfieldPLT248 103/biBjpzbt544-351Dqx [facility] OhioComment on above: Performed By: #### CBC #### [facility] [address] [place] [address] Dr. Deepak GreenfieldRBC3.82 106/ulCritically low4.70-6.10The [facility] OhioComment on above:Performed By: #### CBC #### [facility] [address] [place] [address] Dr. Deepak GreenfieldWBC6.5 103/ulNormal4.0-11.0The [facility] OhioComment on above: Performed By: #### CBC #### [facility] [address] [place] [address] Dr. Deepak GreenfieldFERRITINon 64-88-4212Ylakvpxo [Mass/Vol]152.0 ng/mLNormal 26.0-388.0The [facility] OhioComment on above:Performed By: #### MG, CMP #### [facility] [address] [place] [address] Dr. Deepak GreenfieldIRONon 42-70-4056Zbuu [Mass/Vol]136.0 ug/rCNhycuk84.0-175.0The [facility] OhioComment on above:Performed By: #### MG, CMP #### [facility] [address] [place] [address] Dr. Deepak GreenfieldMAGNESIUMon 40-21-7399Swegoueod [Mass/Vol]1.6 mg/dLCritically low 1.8-2.4The [facility] OhioComment on above:Performed By: #### INFLUAB #### [facility] [address] [place] [address] Dr. Deepak GreenfieldVITAMIN B12on 45-60-8629Odulddjww (Vitamin B12) [Mass/Vol]545.0 pg/xCCserds893.0-986.0The [facility] OhioComment on above:Performed By: #### MG, CMP #### [facility] [address] [place] [address] Dr. Deepak GreenfieldCBC AUTO DIFFon [id number] #0.0 103/ulNormal0.0-0.1The [facility] OhioComment on above:Performed By: #### MG, CMP #### [facility] [place] [facility] [address] [place] [address] Dr. Deepak GreenfieldBasophils/100 WBC (Bld)0.5 %Normal0.2-2.0The [facility] [place] Comment on above:Performed By: #### MG, CMP #### [facility] [place] [facility] [address] [place] [address] Dr. Sotelo ChangEO #0.2 103/ulNormal0.0-0.7The [facility] OhioComment on above: Performed By: #### MG, CMP #### [facility] [address] [place] [address] Dr. Deepak Mcallisterosinophils/100 WBC (Bld)2.0 %Normal0.9-7.0The [facility] [place] Comment on above:Performed By: #### MG, CMP #### [facility] [address] [place] [address] Dr. Deepak Mcallisterrythrocyte distribution width (RBC) [Ratio]13.5 %Acbbam62.0-15.0 The [facility] on above:Performed By: #### MG, CMP #### [facility] [place] [facility] [address] [place] [address] Dr. Deepak GreenfieldHematocrit (Bld) [Volume fraction]38.5 %Critically low42.0-54.0 [facility] on above:Performed By: #### MG, CMP #### [facility] [address] [place] [address] Dr. Deepak GreenfieldHemoglobin (Bld) [Mass/Vol]12.6 g/dLCritically low14.0-18.0[facility] on above:Performed By: #### MG, CMP #### [facility] [address] [place] [address] Dr. Deepak Bahena #0.02 10e3/ulNormal0.00-0.03The [facility] on above:Performed By: #### MG, CMP #### [facility] [address] [place] [address] Dr. Deepak Bahena %0.2 %Normal0.0-0.5The [facility] on above: Performed By: #### MG, CMP #### [facility] [address] [place] [address] Dr. Deepak Dong #3.1 103/ulNormal1.2-3.8The [facility] on above:Performed By: #### MG, CMP #### [facility] [address] [place] [address] Dr. Deepak Ricardohocytes/100 WBC (Bld)36.2 %Weowez49.5-60.0The [facility] on above:Performed By: #### MG, CMP #### [facility] [address] [place] [address] Dr. Deepak MendozaUAL DIFF REQNONormalThe Nataliya HospitalComment on above: Performed By: #### MG, CMP #### [facility] [address] [place] [address] Dr. Deepak Schwartz (RBC) [Entitic mass]32.1 xiUcdzqs82.9-34.0The [facility] OhioComment on above:Performed By: #### MG, CMP #### [facility] [address] [place] [address] Dr. Deepak Schwartz (RBC) [Mass/Vol]32.7 g/jROqseom40.9-35.2The [facility] HospitalComment on above:Performed By: #### MG, CMP #### [facility] [address] [place] [address] Dr. Deepak Flores (RBC) [Entitic vol]98.0 fLCritically high80.0-94.0The [facility] OhioComment on above:Performed By: #### MG, CMP #### [facility] [address] [place] [address] Dr. Deepak Morel #0.9 103/ulCritically high0.3-0.8The [facility] [place] Comment on above:Performed By: #### MG, CMP #### [facility] [address] [place] [address] Dr. Deepak Santosocytes/100 WBC (Bld)10.6 %Normal1.7-12.0[facility] Comment on above:Performed By: #### MG, CMP #### [facility] [address] [place] [address] Dr. Deepak Gifford #4.3 103/ulNormal1.4-6.5The [facility] OhioComment on above:Performed By: #### MG, CMP #### [facility] [address] [place] [address] Dr. Deepak Makophils/100 WBC (Bld)50.5 %Xaswoo59.0-75.0The [facility] OhioComment on above:Performed By: #### MG, CMP #### [facility] [address] [place] [address] Dr. Deepak Huffman mean volume (Bld) [Entitic vol]9.9 fLNormal9.5-13.5The [facility] OhioComment on above:Performed By: #### MG, CMP #### [facility] [address] [place] [address] Dr. Deepak GreenfieldPLT263 103/jjAaqvim746-687Vhd [facility] OhioComment on above: Performed By: #### MG, CMP #### [facility] [address] [place] [address] Dr. Deepak GreenfieldRBC3.93 106/ulCritically low4.70-6.10The [facility] OhioComment on above:Performed By: #### MG, CMP #### [facility] [address] [place] [address] Dr. Deepak GreenfieldWBC8.6 103/ulNormal4.0-11.0The [facility] OhioComment on above: Performed By: #### MG, CMP #### [facility] [address] [place] [address] Dr. Deepak GreenfieldMAGNESIUMon 99-35-4482Etaxjlkgn [Mass/Vol]1.5 mg/dLCritically low 1.8-2.4The [facility] on above:Performed By: #### MG, CMP #### [facility] [address] [place] [address] Dr. Deepak GreenfieldPROF 14(COMP METB)on 24-60-9759Ivdwliy [Mass/Vol]3.4 g/dLNormal 3.4-5.0The [facility] OhioComment on above:Performed By: #### MG, CMP #### [facility] [address] [place] [address] Dr. Deepak GreenfieldAlbumin/Globulin [Mass ratio]0.9 {ratio}NormalThe [facility] OhioComment on above:Performed By: #### MG, CMP #### [facility] [address] [place] [address] Dr. Deepak Brady [Catalytic activity/Vol]47 U/NRcdhyy44-067Bln [facility] OhioComment on above:Performed By: #### MG, CMP #### [facility] [address] [address] [address] Deepak Mack [Catalytic activity/Vol]48 U/BPtsgtq54-64Hrg [facility] OhioComment on above:Performed By: #### MG, CMP #### [facility] [address] [address] [address] Deepak Fischeron gap [Moles/Vol]9.5 mmol/LNormalThe [facility] OhioComment on above:Performed By: #### MG, CMP #### [facility] [address] [address] [address] Deepak Mcgee [Catalytic activity/Vol]30 U/KEqfsmx59-95Ftd [facility] OhioComment on above:Performed By: #### MG, CMP #### [facility] [address] [place] [address] Dr. Deepak GreenfieldBilirubin [Mass/Vol]0.2 mg/dLNormal0.2-1.0The [facility] [place] Comment on above:Performed By: #### MG, CMP #### [facility] [address] [place] [address] Dr. Deepak GreenfieldCalcium [Mass/Vol]8.7 mg/dLNormal8.5-10.1[facility] Comment on above:Performed By: #### MG, CMP #### [facility] [address] [place] [address] Dr. Deepak GreenfieldChloride [Moles/Vol]105 mmol/NBhnznd45-526Dny [facility] [place] Comment on above:Performed By: #### MG, CMP #### [facility] [address] [address] [address] Deepak GreenfieldCO2 [Moles/Vol]32.6 mmol/LCritically high21.0-32.0The [facility] OhioComment on above:Performed By: #### MG, CMP #### [facility] [address] [place] [address] Dr. Deepak GreenfieldCreatinine [Mass/Vol]0.70 mg/dLNormal0.70-1.30The [facility] OhioComment on above:Performed By: #### MG, CMP #### [facility] [address] [place] [address] Dr. Deepak McallisterGFR-AF ZIMBABWEAN>60Normal>=60The [facility] OhioComment on above:Performed By: #### MG, CMP #### [facility] [address] [place] [address] Dr. Deepak McallisterGFR-NON AF ZIMBABWEAN>60Normal>=60[facility] CenterComment on above:Performed By: #### MG, CMP #### [facility] [address] [place] [address] Dr. Deepak GreenfieldGlobulin (S) [Mass/Vol]3.8 g/dLNormalThe [facility] OhioComment on above:Performed By: #### MG, CMP #### [facility] [address] [place] [address] Dr. Deepak GreenfieldGlucose [Mass/Vol]98 mg/gJJhjkoz09-660NiqUniversity Hospitals St[facility] Comment on above:Performed By: #### MG, CMP #### [facility] [address] [place] [address] Dr. Deepak GreenfieldPotassium [Moles/Vol]4.1 mmol/LNormal3.5-5.1[facility] Comment on above:Performed By: #### MG, CMP #### [facility] [address] [place] [address] Dr. Deepak GreenfieldProtein [Mass/Vol]7.2 g/dLNormal6.4-8.2[facility] Comment on above:Performed By: #### MG, CMP #### [facility] [address] [place] [address] Dr. Deepak GreenfieldSodium [Moles/Vol]143 mmol/QVgkwnl549-999DllUniversity Hospitals St. [facility] Comment on above:Performed By: #### MG, CMP #### [facility] [address] [place] [address] Dr. Deepak GreenfieldUrea nitrogen [Mass/Vol]10.0 mg/dLNormal7.0-18.0The [facility] OhioComment on above:Performed By: #### MG, CMP #### [facility] [address] [place] [address] Dr. Deepak Murphy nitrogen/Creatinine [Mass ratio]14.3 mg/mgNoKnox Community HospitalComment on above:Performed By: #### MG, CMP #### [facility] [address] [place] [address] Dr. Deepak GreenfieldVITAMIN D 25 OHon 63-97-2168VWC D 25-OH67.5 ng/mLNormalThe [facility] OhioComment on above:Performed By: #### MG, CMP #### [facility] [address] [place] [address] Dr. Deepak Serna [place]ANGES[place] BELOWBluffton HospitalComment on above: Result Comment: <20 ng/mL Vit D deficient 20 - <30 ng/mL Vit D insufficient 30 - 100 ng/mL Vit D sufficient >100 ng/mL Potential ToxicityPerformed By: #### MG, CMP #### [facility] [address] [place] [address] Dr. Deepak Blounton 68-11-1849Pegkxja (P) [Moles/Vol]36 umol/LCritically pyet92-63Elz [facility] OhioComment on above:Performed By: #### CBC #### [facility] [address] [place] [address] Dr. Deepak Stein/ VALPROIC ACIDon 57-98-6026GTYCDMVE41.5 ug/mlNormal 50.0-100.0The [facility] OhioComment on above:Performed By: #### BMP #### [facility] [address] [place] [address] Dr. Deepak Infante 35-22-9716Cmizzqjinle peptide B (Bld) [Mass/Vol]183.0 pg/mL Normal<=450.0The [facility] OhioComment on above:Performed By: #### MG, CMP #### [facility] [address] [place] [address] Dr. Deepak Brand AUTO DIFFon 84-40-7901RJUG #0.0 103/ulNormal0.0-0.1The [facility] OhioComment on above:Performed By: #### CVDTBH #### [facility] [address] [place] [address] Dr. Deepak GreenfieldBasophils/100 WBC (Bld)0.3 %Normal0.2-2.0[facility] Comment on above:Performed By: #### CVDTBH #### [facility] [address] [place] [address] Dr. Deepak Boothe #0.1 103/ulNormal0.0-0.7The [facility] OhioComment on above: Performed By: #### CVDTBH #### [facility] [address] [place] [address] Dr. Deepak Mcallisterosinophils/100 WBC (Bld)0.4 %Critically low0.9-7.0The [facility] OhioComment on above:Performed By: #### CVDTBH #### [facility] [address] [place] [address] Dr. Deepak Mcallisterrythrocyte distribution width (RBC) [Ratio]13.6 %Mxpfih50.0-15.0 [facility] on above:Performed By: #### CVDTBH #### [facility] [address] [place] [address] Dr. Deepak GreenfieldHematocrit (Bld) [Volume fraction]39.3 %Critically low42.0-54.0 [facility] on above:Performed By: #### CVDTBH #### [facility] [address] [place] [address] Dr. Deepak GreenfieldHemoglobin (Bld) [Mass/Vol]12.6 g/dLCritically low14.0-18.0[facility] on above:Performed By: #### CVDTBH #### [facility] [address] [place] [address] Dr. Deepak Bahena #0.04 10e3/ulCritically high0.00-0.03The [facility] [place] Comment on above:Performed By: #### CVDTBH #### [facility] [address] [place] [address] Dr. Deepak Bahena %0.3 %Normal0.0-0.5The [facility] OhioComment on above: Performed By: #### CVDTBH #### [facility] [address] [place] [address] Dr. Deepak Dong #2.4 103/ulNormal1.2-3.8The [facility] OhioComment on above:Performed By: #### CVDTBH #### [facility] [address] [place] [address] Dr. Deepak Ricardohocytes/100 WBC (Bld)16.6 %Critically low20.5-60.0The [facility] OhioComment on above:Performed By: #### LUCTBH #### [facility] [address] [place] [address] Dr. Deepak MendozaUAL DIFF REQNONormalThe [facility] OhioComment on above: Performed By: #### LUCTBH #### [facility] [address] [place] [address] Dr. Deepak Schwartz (RBC) [Entitic mass]32.0 cgVwqdzg51.9-34.0The [facility] OhioComment on above:Performed By: #### CVDTBH #### [facility] [address] [place] [address] Dr. Deepak Schwartz (RBC) [Mass/Vol]32.1 g/qIYlvoea61.9-35.2The [facility] OhioComment on above:Performed By: #### CVDTBH #### [facility] [address] [place] [address] Dr. Deepak Schwartz (RBC) [Entitic vol]99.7 fLCritically high80.0-94.0The [facility] OhioComment on above:Performed By: #### CVDTBH #### [facility] [address] [place] [address] Dr. Deepak Morel #1.4 103/ulCritically high0.3-0.8The [facility] Comment on above:Performed By: #### CVDTBH #### [facility] [address] [place] [address] Dr. Deepak Santosocytes/100 WBC (Bld)9.8 %Normal1.7-12.0[facility] Comment on above:Performed By: #### CVDTBH #### [facility] [address] [place] [address] Dr. Deepak Gifford #10.7 103/ulCritically high1.4-6.5ThC[facility] Comment on above:Performed By: #### CVDTBH #### [facility] [address] [place] [address] Dr. Deepak Mongeutrophils/100 WBC (Bld)72.6 %Tqqwgr65.0-75.0The [facility] OhioComment on above:Performed By: #### CVDTBH #### [facility] [address] [place] [address] Dr. Deepak Huffman mean volume (Bld) [Entitic vol]10.4 fLNormal9.5-13.5ThCleveland Clinic Mercy HospitalComment on above:Performed By: #### CVDTBH #### [facility] [address] [place] [address] Dr. Deepak GreenfieldPLT280 103/qcTqwzmz664-946Mhv [facility] OhioComment on above: Performed By: #### CVDTBH #### [facility] [address] [place] [address] Dr. Deepak GreenfieldRBC3.94 106/ulCritically low4.70-6.10ThCleveland Clinic Mercy HospitalComment on above:Performed By: #### CVDTBH #### [facility] [address] [place] [address] Dr. Deepak GreenfieldWBC14.7 103/ulCritically high4.0-11.0[facility] CenterComment on above:Performed By: #### CVDTBH #### [facility] [address] [place] [address] Dr. Deepak Lora BLOODon 07-99-0275Sjyongxnjqx examination of blood, cultureCulture Observations: No growth at 5 days.NormalThe [facility] OhioComment on above:Performed By: #### CBC #### [facility] [address] [place] [address] Dr. Deepak GreenfieldMicroscopic examination of blood, cultureCulture Observations: No growth at 5 days.NormalThe [facility] OhioComment on above:Performed By: #### CBC #### [facility] [address] [place] [address] Dr. Deepak GreenfieldCovid-19 PCR ([facility])on 41-59-4799SJZT-CoV-2 (COVID-19) RNA CINDY+probe Ql (Unsp spec)Not detectedNormalNOT DETECTEDThe [facility] [place] Comment on above:Result Comment: When diagnostic testing is negative, the [...] for this test is supported by the [employer] of Health and Human Service's declaration that circumstances exist to justify the emergency use of in vitro diagnostics for the detection and/or diagnosis of the virus that causes COVID-19. This EUA will remain in effect for the duration of the COVID-19 declaration justifying emergency of IVDs, unless it is terminated or revoked by the FDA (after which the test may no longer be used).Performed By: #### INFLUAB #### [facility] [address] [place] [address] Dr. Deepak GreenfieldLACTATE/LACTIC ACIDon 85-12-2669Uufsobj [Moles/Vol]1.7 mmol/L Normal0.4-1.9The [facility] OhioComment on above:Performed By: #### MG, CMP #### [facility] [address] [address] [address] Deepak EllisonF 14(COMP METB)on 28-57-7568Dtvqqus [Mass/Vol]3.2 g/dL Critically low3.4-5.0The [facility] OhioComment on above:Performed By: #### MG, CMP #### [facility] [address] [address] [address] Deepak GreenfieldAlbumin/Globulin [Mass ratio]0.7 {ratio}NormalThe [facility] OhioComment on above:Performed By: #### MG, CMP #### [facility] [address] [address] [address] Deepak ReedP [Catalytic activity/Vol]49 U/LTqufqq94-718Dtu [facility] OhioComment on above:Performed By: #### MG, CMP #### [facility] [address] [address] [address] Deepak Mack [Catalytic activity/Vol]41 U/LEvafhb46-28Jzr [facility] OhioComment on above:Performed By: #### MG, CMP #### [facility] [address] [address] [address] Deepak Decker gap [Moles/Vol]11.1 mmol/LNormalUniversity Hospitals St[facility] Comment on above:Performed By: #### MG, CMP #### [facility] [address] [address] [address] Deepak Mcgee [Catalytic activity/Vol]29 U/APnafri41-35Vbw [facility] OhioComment on above:Performed By: #### MG, CMP #### [facility] [address] [address] [address] Deepak GreenfieldBilirubin [Mass/Vol]0.5 mg/dLNormal0.2-1.0The [facility] Comment on above:Performed By: #### MG, CMP #### [facility] [address] [address] [address] Deepak GreenfieldCalcium [Mass/Vol]9.1 mg/dLNormal8.5-10.1The [facility] Comment on above:Performed By: #### MG, CMP #### [facility] [address] [address] [address] Deepak GreenfieldChloride [Moles/Vol]108 mmol/LCritically fsxh63-385Eip [facility] OhioComment on above:Performed By: #### MG, CMP #### [facility] [address] [address] [address] Deepak GreenfieldCO2 [Moles/Vol]25.7 mmol/JLbsthg06.0-32.0The [facility] Comment on above:Performed By: #### MG, CMP #### [facility] [address] [address] [address] Deepak GreenfieldCreatinine [Mass/Vol]0.89 mg/dLNormal0.70-1.30The [facility] OhioComment on above:Performed By: #### MG, CMP #### [facility] [address] [address] [address] Deepak McallisterGFR-AF ZIMBABWEAN>60Normal>=60The [facility] OhioComment on above:Performed By: #### MG, CMP #### [facility] [address] [address] [address] Deepak McallisterGFR-NON AF ZIMBABWEAN>60Normal>=60The [facility] OhioComment on above:Performed By: #### MG, CMP #### [facility] [address] [address] [address] Deepak GreenfieldGlobulin (S) [Mass/Vol]4.5 g/dLNormalThe [facility] OhioComment on above:Performed By: #### MG, CMP #### [facility] [address] [address] [address] Deepak GreenfieldGlucose [Mass/Vol]178 mg/dLCritically midb74-692Oil [facility] OhioComment on above:Performed By: #### MG, CMP #### [facility] [address] [address] [address] Deepak GreenfieldPotassium [Moles/Vol]3.8 mmol/LNormal3.5-5.1The [facility] Comment on above:Performed By: #### MG, CMP #### [facility] [address] [address] [address] Deepak GreenfieldProtein [Mass/Vol]7.7 g/dLNormal6.4-8.2[facility] Comment on above:Performed By: #### MG, CMP #### [facility] [address] [place] [address] Dr. Deepak GreenfieldSodium [Moles/Vol]141 mmol/XPlzpmw191-965BkdUniversity Hospitals St. [facility] Comment on above:Performed By: #### MG, CMP #### [facility] [address] [place] [address] Dr. Deepak GreenfieldUrea nitrogen [Mass/Vol]16.0 mg/dLNormal7.0-18.0[facility] CenterComment on above:Performed By: #### MG, CMP #### [facility] [address] [place] [address] Dr. Deepak Murphy nitrogen/Creatinine [Mass ratio]18.0 mg/mgNormalThCleveland Clinic Mercy HospitalComment on above:Performed By: #### MG, CMP #### [facility] [address] [place] [address] Dr. Deepak Courtney, HIGH SENSITIVITYon 35-01-8325DVGYNX5.4 pg/mLNormal 4.0-76.1[facility] CenterComment on above:Result Comment: CUT-OFF POINTS HAVE BEEN ESTABLISHED BASED ON THE FOURTH UNIVERSAL DEFINITIONS OF MYOCARDIAL INFARCTION. THE UPPER REFERENCE LIMIT (URL) OF TROPONIN, DEFINED THE 99TH PERCENTILE OF cTnI DISTRIBUTION IN A REFERENCE POPULATION, HAS BEEN CONFIRMED THE DECISION THRESHOLD FOR OR DIAGNOSIS.Performed By: #### MG, CMP #### [facility] [place] [facility] [address] [place] [address] Dr. Deepak GreenfieldXR CHEST 1 Von [id number] CHEST 1 VEXAM: XR CHEST 1 V HISTORY: SHORTNESS OF BREATH COMPARISON: Chest x-ray 01/06/2022. TECHNIQUE: Portable chest FINDINGS: Poor inspiratory effort. No pneumothorax or pleural effusion. The heart is not enlarged. No consolidation or infiltrate. Stimulator overlies the left upper abdomen. IMPRESSION: No acute abnormality Electronically authenticated by: ANICETO CROCKER Date: 2022-01-24 15:28NormKettering Health Behavioral Medical CenterUA RANDOM W/MICROSCOPICon [id number] SEENNormalNONE SEENUniversity Hospitals St. John Medical CenterComment on above:Performed By: #### CVDTBH #### [facility] [place] [facility] [address] [address] [address] Deepak Lynnirubin Ql (U)NegativeNormalNEGATIVEUniversity Hospitals St. John Medical [facility] Comment on above:Performed By: #### CVDTBH #### [facility] [place] [facility] [address] [address] [address] Deepak Slater SEENNormalNONE SEENUniversity Hospitals St. John Medical CenterComment on above:Performed By: #### CVDTBH #### [facility] [place] [facility] [address] [address] [address] Deepak GreenfieldClolga (U)CLEARNormalCLEARUniversity Hospitals St. John Medical CenterComment on above: Performed By: #### CVDTBH #### [facility] [place] [facility] [address] [address] [address] Deepak Phoenix (U)YELLOWNormalYELLOWUniversity Hospitals St. John Medical CenterComment on above: Performed By: #### CVDTBH #### [facility] [place] [facility] [address] [address] [address] Deepak GreenfieldCrystals LM Nom (Urine sed)NONE SEENNormalNONE SEENUniversity Hospitals St. John Medical CenterComment on above:Performed By: #### CVDTBH #### [facility] [place] [facility] [address] [address] [address] Sotelo ChangEpithelial cells LM Ql (Urine sed)RARENormalNONE SEEN /RAREUniversity Hospitals St. John Medical CenterComment on above:Performed By: #### CVDTBH #### [facility] [place] [facility] [address] [place] [address] Dr. Deepak Moralesose Ql (U)NegativeNormalNEGATIVEUniversity Hospitals St. John Medical CenterComment on above:Performed By: #### CVDTBH #### [facility] [place] [facility] [address] [address] [address] Deepak GreenfieldHemoglobin Ql (U)NegativeNormalNEGATIVEUniversity Hospitals St. [facility] Medical Center Comment on above:Performed By: #### CVDTBH #### [facility] [place] [facility] [address] [address] [address] Deepak GreenfieldKetones Ql (U)15 mg/dlAbnormalNEGATIVEUniversity Hospitals St. John Medical Center Comment on above:Performed By: #### CVDTBH #### [facility] [place] [facility] [address] [address] [address] Deepak GreenfieldLEUKOCYTESNegativeNormalNEGATIVEUniversity Hospitals St. John Medical CenterComment on above:Performed By: #### CVDTBH #### [facility] [place] [facility] [address] [place] [address] Dr. Deepak GreenfieldMUCOUSNONE SEENNormalNONE SEENUniversity Hospitals St. John Medical CenterComment on above:Performed By: #### CVDTBH #### [facility] [place] [facility] [address] [place] [address] Dr. Deepak GreenfieldNitrite Ql (U)NegativeNormalNEGATIVEUniversity Hospitals St. John Medical CenterComment on above:Performed By: #### CVDTBH #### [facility] [place] [facility] [address] [place] [address] Dr. Deepak GreenfieldpH (U)6.0 [pH]Normal5-9[facility] [address] John Medical CenterComment on above: Performed By: #### CVDTBH #### [facility] [place] [facility] [address] [place] [address] Dr. Deepak GreenfieldZjqyhDKU9-6Jfxsmj7-8Rkp [facility] OhioComment on above:Performed By: #### CVDTBH #### [facility] [place] [facility] [address] [place] [address] Dr. Deepak GreenfieldSPEC GRAVITY1.600Dtjzwk0.005-<=1.025The [facility] OhioComment on above:Performed By: #### CVDTBH #### [facility] [place] [facility] [address] [place] [address] Dr. Deepak GreenfieldUA PROTEINNegativeNormalNEGATIVE/ TRACEThe [facility] [place] Comment on above:Performed By: #### CVDTBH #### [facility] [place] [facility] [address] [place] [address] Dr. Deepak Stillbilinogen Qn (U)0.2 {Ottoniel'U}/dLNormal0.2 - 1.0The [facility] OhioComment on above:Performed By: #### CVDTBH #### [facility] [place] [facility] [address] [place] [address] Dr. Deepak GreenfieldWBCNONKristin SEENNormalNONE SEENThe [facility] OhioComment on above: Performed By: #### CVDTBH #### [facility] [place] [facility] [address] [place] [address] Dr. Deepak Casillas [id number] [Mass/Vol]3.4 g/dLNormal3.4-5.0The [facility] OhioComment on above:Performed By: #### CVDTBH #### [facility] [place] [facility] [address] [place] [address] Dr. Deepak GreenfieldALKALINE PHOSPHAon 10-12-8151JSD [Catalytic activity/Vol]46 U/L Qrjyfx93-829Bjm [facility] OhioComment on above:Performed By: #### CVDTBH #### [facility] [place] [facility] [address] [place] [address] Dr. Deepak GreenfieldAMMONIAvanita 17-94-0302Ysfloth (P) [Moles/Vol]93 umol/LCritically pjdn63-52Xpo [facility] OhioComment on above:Performed By: #### INFLUAB #### [facility] [place] [facility] [address] [place] [address] Dr. Deepak LynnIRUBIN CONJUGATED (DIRECT)on 90-27-1256GITG, CONJUGATED0.1 mg/dLNormal0.0-0.2The [facility] OhioComment on above:Performed By: #### CVDTBH #### [facility] [place] [facility] [address] [place] [address] Dr. Deepak GreenfieldBILIRUBIN TOTALon 87-84-0629Nxuwcivid [Mass/Vol]0.4 mg/dLNormal 0.2-1.0The [facility] OhioComment on above:Performed By: #### CVDTBH #### [facility] [place] [facility] [address] [place] [address] Dr. Deepak Brand AUTO DIFFon 76-31-3011ZVDJ #0.0 103/ulNormal0.0-0.1[facility] John Medical CenterComment on above:Performed By: #### MG, CMP #### [facility] [place] [facility] [address] [place] [address] Dr. Deepak GreenfieldBasophils/100 WBC (Bld)0.3 %Normal0.2-2.0[facility] Comment on above:Performed By: #### MG, CMP #### [facility] [place] [facility] [address] [place] [address] Dr. Deepak Boothe #0.1 103/ulNormal0.0-0.7The [facility] OhioComment on above: Performed By: #### MG, CMP #### [facility] [place] [facility] [address] [place] [address] Dr. Deepak Mcallisterosinophils/100 WBC (Bld)1.3 %Normal0.9-7.0The [facility] [place] Comment on above:Performed By: #### MG, CMP #### [facility] [place] [facility] [address] [place] [address] Dr. Deepak Mcallisterrythrocyte distribution width (RBC) [Ratio]14.2 %Momcuj91.0-15.[address] John Medical CenterComment on above:Performed By: #### MG, CMP #### [facility] [place] [facility] [address] [place] [address] Dr. Deepak GreenfieldHematocrit (Bld) [Volume fraction]40.4 %Critically low42.0-54.[address] John Medical CenterComment on above:Performed By: #### MG, CMP #### [facility] [place] [facility] [address] [place] [address] Dr. Deepak GreenfieldHemoglobin (Bld) [Mass/Vol]13.1 g/dLCritically low14.0-18.0[facility] John Medical CenterComment on above:Performed By: #### MG, CMP #### [facility] [place] [facility] [address] [address] [address] Deepak Bahena #0.01 10e3/ulNormal0.00-0.03The [facility] Medical Centerment on above:Performed By: #### MG, CMP #### [facility] [place] [facility] [address] [place] [address] Dr. Deepak Bahena %0.1 %Normal0.0-0.5The [facility] OhioComascension stand[facility] on above: Performed By: #### MG, CMP #### [facility] [place] [facility] [address] [place] [address] Dr. Deepak Dong #3.3 103/ulNormal1.2-3.8The [facility] OhioComment on above:Performed By: #### MG, CMP #### [facility] [place] [facility] [address] [place] [address] Dr. Deepak Ricardohocytes/100 WBC (Bld)42.3 %Rajhbu67.5-60.0The [facility] on above:Performed By: #### MG, CMP #### [facility] [place] [facility] [address] [place] [address] Dr. Deepak MendozaUAL DIFF REQNONormalThe [facility] OhioComment on above: Performed By: #### MG, CMP #### [facility] [place] [facility] [address] [place] [address] Dr. Deepak Schwartz (RBC) [Entitic mass]32.4 tuZxelli99.9-34.0The [facility] on above:Performed By: #### MG, CMP #### [facility] [place] [facility] [address] [place] [address] Dr. Deepak Schwartz (RBC) [Mass/Vol]32.4 g/pHXrixjm83.9-35.2The [facility] on above:Performed By: #### MG, CMP #### [facility] [place] [facility] [address] [place] [address] Dr. Deepak Schwartz (RBC) [Entitic vol]100.0 fLCritically high80.0-94.0The [facility] OhioComment on above:Performed By: #### MG, CMP #### [facility] [place] [facility] [address] [place] [address] Dr. Deepak Morel #0.6 103/ulNormal0.3-0.8The [facility] OhioComment on above:Performed By: #### MG, CMP #### [facility] [place] [facility] [address] [place] [address] Dr. Deepak Santosocytes/100 WBC (Bld)7.6 %Normal1.7-12.0The [facility] [place] Comment on above:Performed By: #### MG, CMP #### [facility] [place] [facility] [address] [place] [address] Dr. Deepak Gifford #3.8 103/ulNormal1.4-6.5The [facility] OhioComment on above:Performed By: #### MG, CMP #### [facility] [place] [facility] [address] [place] [address] Dr. Deepak Mongeutrophils/100 WBC (Bld)48.4 %Kbmgsk17.0-75.0The [facility] OhioComment on above:Performed By: #### MG, CMP #### [facility] [place] [facility] [address] [place] [address] Dr. Deepak Huffman mean volume (Bld) [Entitic vol]9.6 fLNormal9.5-13.5The [facility] OhioComment on above:Performed By: #### MG, CMP #### [facility] [place] [facility] [address] [place] [address] Dr. Deepak GreenfieldPLT315 103/cuTnvefl043-892Mjv [facility] OhioComment on above: Performed By: #### MG, CMP #### [facility] [place] [facility] [address] [place] [address] Dr. Deepak GreenfieldRBC4.04 106/ulCritically low4.70-6.10The [facility] OhioComment on above:Performed By: #### MG, CMP #### [facility] [place] [facility] [address] [place] [address] Dr. Deepak GreenfieldWBC7.9 103/ulNormal4.0-11.0The [facility] OhioComment on above: Performed By: #### MG, CMP #### [facility] [place] [facility] [address] [place] [address] Dr. Deepak Stein/VALPROICon 78-84-6731WJTRAQSM63.7 ug/gmNwequw83.0-100.0 The [facility] OhioComment on above:Performed By: #### INFLUAB #### [facility] [place] [facility] [address] [place] [address] Dr. Deepak GreenfieldPROF CHEM 8 (BAS METB)on 79-27-6483Shfym gap [Moles/Vol]12.9 mmol/LNormalThe [facility] OhioComment on above:Performed By: #### INFLUAB #### [facility] [place] [facility] [address] [place] [address] Dr. Deepak GreenfieldCalcium [Mass/Vol]8.8 mg/dLNormal8.5-10.1The [facility] [place] Comment on above:Performed By: #### INFLUAB #### [facility] [place] [facility] [address] [place] [address] Dr. Deepak GreenfieldChloride [Moles/Vol]103 mmol/CMfdfzq40-243Kbw [facility] [place] Comment on above:Performed By: #### INFLUAB #### [facility] [place] [facility] [address] [place] [address] Dr. Deepak GreenfieldCO2 [Moles/Vol]28.1 mmol/HWgfclu94.0-32.0[facility] Comment on above:Performed By: #### INFLUAB #### [facility] [place] [facility] [address] [place] [address] Dr. Deepak GreenfieldCreatinine [Mass/Vol]0.58 mg/dLCritically low0.70-1.30The [facility] OhioComment on above:Performed By: #### INFLUAB #### [facility] [place] [facility] [address] [place] [address] Dr. Sotelo ChangEGFR-AF ZIMBABWEAN>60Normal>=60The [facility] OhioComment on above:Performed By: #### INFLUAB #### [facility] [place] [facility] [address] [place] [address] Dr. Deepak McallisterGFR-NON AF ZIMBABWEAN>60Normal>=60The [facility] OhioComment on above:Performed By: #### INFLUAB #### [facility] [place] [facility] [address] [address] [address] Deepak GreenfieldGlucose [Mass/Vol]117 mg/dLCritically oogc84-899Qmc [facility] OhioComment on above:Performed By: #### INFLUAB #### [facility] [place] [facility] [address] [address] [address] Deepak GreenfieldPotassium [Moles/Vol]4.0 mmol/LNormal3.5-5.1The [facility] [place] Comment on above:Performed By: #### INFLUAB #### [facility] [place] [facility] [address] [place] [address] Dr. Deepak GreenfieldSodium [Moles/Vol]140 mmol/JDngdmn513-525Juz [facility] [place] Comment on above:Performed By: #### INFLUAB #### [facility] [place] [facility] [address] [address] [address] Deepak GreenfieldUrea nitrogen [Mass/Vol]7.0 mg/dLNormal7.0-18.0The [facility] OhioComment on above:Performed By: #### INFLUAB #### [facility] [place] [facility] [address] [place] [address] Dr. Deepak Murphy nitrogen/Creatinine [Mass ratio]12.1 mg/mgNormalThe [facility] OhioComment on above:Performed By: #### INFLUAB #### [facility] [place] [facility] [address] [place] [address] Dr. Deepak Tan 11-90-4250HVO [Catalytic activity/Vol]31 U/ZKkeydb21-63Hfi [facility] OhioComment on above:Performed By: #### CVDTBH #### [facility] [place] [facility] [address] [place] [address] Dr. Deepak Cottrell 23-89-6573HMR [Catalytic activity/Vol]48 U/FZszbcn85-98Ygk [facility] OhioComment on above:Performed By: #### CVDTBH #### [facility] [place] [facility] [address] [place], [place] [address] Dr. Deepak Coffey PROTEIN SERUMon 72-74-9184Zbwxgcb [Mass/Vol]7.3 g/dLNormal 6.4-8.2The [facility] OhioComment on above:Performed By: #### BMP #### [facility] [place] [facility] [address] [place], [place] [address] Dr. Deepak GreenfieldXR CHEST 2 Von 93-80-4016WH CHEST 2 VEXAM: XR CHEST 2 V HISTORY: Congestion COMPARISON: Portable chest 05/28/2021 TECHNIQUE: 2 views FINDINGS: 2 extremely limited relatively nondiagnostic chest x-rays are presented for interpretation. Distended air-filled loops of bowel and findings raising the suspicion of an early bowel obstruction. No gross pneumothorax or pleural effusion IMPRESSION: Limited study Questionable bowel obstruction Electronically authenticated by: ANICETO CROCKER Date: 2022-01-06 16:15NormalThe [facility] OhioXR DEXA BONE DENSITYon 32-16-8745SN DEXA BONE DENSITYDEXA bone density study CLINICAL: 41-year-old male. Evaluate [...] Electronically authenticated by: MARGARITO DAVIES Date: 2021-11-20 11:[address] [place] [address] SCROTUMon 91-65-5118XV SCROTUMEXAMINATION: US SCROTUM HISTORY: Imaging of genitourinary system [...] Electronically authenticated by: KRISTIAN BILLINGS Date: 2021-11-14 07:10[facility]ON[facility] [id number] (P) [Moles/Vol]88 umol/LCritically sxjt34-63PjoUniversity Hospitals St. John Medical CenterComment on above:Performed By: #### MG, CMP #### [facility] [place] [facility] [address] [place] [address] Dr. Deeapk GreenfieldSaint [facility] 94-27-6068Suseraq (P) [Moles/Vol]103 umol/LCritically xlsx57-59TrbUniversity Hospitals St. John Medical CenterComment on above:Result Comment: SPECIMEN SLIGHTLY HEMOLYZED MAY AFFECT AMM RESULTPerformed By: #### INFLUAB #### [facility] [place] [facility] [address] [place] [address] Dr. Deepak HerzogCRITICAL ACCESS HOSPITALon 54-83-8653Pelxxltn identified Aer cx Nom (Unsp spec)Final reportNoFayette County Memorial Hospital on above:Performed By: #### CXWND #### [facility] [place] [facility] [address] [place] [address] Dr. Deepak Araujo 1CommentNoKnox Community HospitalComment on above:Result Comment: No growth in 36 - 48 hours.Performed By: #### CXWND #### [facility] [place] [facility] [address] [place] [address] Dr. Deepak Michel CULTUREon 91-78-7743Yyncmdxd identified Aer cx Nom (Unsp spec)Final reportNoKnox Community HospitalComment on above:Performed By: #### AMM #### [facility] [place] [facility] [address] [place] [address] Dr. Deepak GreenfieldResult 1Mixed skin floraNoKnox Community HospitalComment on above:Performed By: #### AMM #### [facility] [place] [facility] [address] [place] [address] Dr. Deepak GreenfieldAMYLASEon 35-16-1292Uglnttg [Catalytic activity/Vol]24 U/L Critically wom17-250Xoj [facility] OhioComment on above:Performed By: #### CBC #### [facility] [place] [facility] [address] [place] [address] Dr. Deepak Brand AUTO DIFFon 71-60-3655TNTU #0.0 103/ulNormal0.0-0.1The [facility] OhioComment on above:Performed By: #### CVDTBH #### [facility] [place] [facility] [address] [place] [address] Dr. Deepak GreenfieldBasophils/100 WBC (Bld)0.5 %Normal0.2-2.0[facility] Comment on above:Performed By: #### CVDTBH #### [facility] [place] [facility] [address] [place] [address] Dr. Deepak Boothe #0.1 103/ulNormal0.0-0.7The [facility] on above: Performed By: #### CVDTBH #### [facility] [place] [facility] [address] [place] [address] Dr. Deepak Mcallisterosinophils/100 WBC (Bld)1.3 %Normal0.9-7.0The [facility] [place] Comment on above:Performed By: #### CVDTBH #### [facility] [place] [facility] [address] [place] [address] Dr. Deepak Mcallisterrythrocyte distribution width (RBC) [Ratio]13.9 %Iysozl74.0-15.0 The [facility] OhioComment on above:Performed By: #### CVDTBH #### [facility] [place] [facility] [address] [place] [address] Dr. Deepak GreenfieldHematocrit (Bld) [Volume fraction]40.0 %Critically low42.0-54.0 The [facility] OhioComment on above:Performed By: #### CVDTBH #### [facility] [place] [facility] [address] [place] [address] Dr. Deepak GreenfieldHemoglobin (Bld) [Mass/Vol]13.0 g/dLCritically low14.0-18.0The [facility] OhioComment on above:Performed By: #### CVDTBH #### [facility] [place] [facility] [address] [place] [address] Dr. Deepak Bahena #0.01 10e3/ulNormal0.00-0.03The [facility] OhioComment on above:Performed By: #### CVDTBH #### [facility] [place] [facility] [address] [place] [address] Dr. Deepak Bahena %0.2 %Normal0.0-0.5The [facility] OhioComment on above: Performed By: #### CVDTBH #### [facility] [place] [facility] [address] [place] [address] Dr. Deepak RicardoH #3.0 103/ulNormal1.2-3.8The [facility] OhioComment on above:Performed By: #### CVDTBH #### [facility] [place] [facility] [address] [place] [address] Dr. Deepak Laumphocytes/100 WBC (Bld)47.9 %Eehdgg76.5-60.0The [facility] OhioComment on above:Performed By: #### CVDTBH #### [facility] [place] [facility] [address] [place] [address] Dr. Deepak GreenfieldMANUAL DIFF REQNONormalThe [facility] OhioComment on above: Performed By: #### CVDTBH #### [facility] [place] [facility] [address] [place], [place] [id number] Dr. Deepak Schwartz (RBC) [Entitic mass]32.9 neWlxbli32.9-34.0The [facility] OhioComment on above:Performed By: #### CVDTBH #### [facility] [place] [facility] [address] [place] [address] Dr. Deepak Schwartz (RBC) [Mass/Vol]32.5 g/mLQzspra85.9-35.2The [facility] HospitalComment on above:Performed By: #### CVDTBH #### [facility] [place] [facility] [address] [place] [address] Dr. Deepak Schwartz (RBC) [Entitic vol]101.3 fLCritically high80.0-94.0The [facility] OhioComment on above:Performed By: #### CVDTBH #### [facility] [place] [facility] [address] [place] [address] Dr. Deepak Morel #0.7 103/ulNormal0.3-0.8The [facility] OhioComment on above:Performed By: #### CVDTBH #### [facility] [place] [facility] [address] [place] [address] Dr. Deepak Santosocytes/100 WBC (Bld)10.3 %Normal1.7-12.0The [facility] [place] Comment on above:Performed By: #### CVDTBH #### [facility] [place] [facility] [address] [place] [address] Dr. Deepak Gifford #2.5 103/ulNormal1.4-6.5The [facility] OhioComment on above:Performed By: #### CVDTBH #### [facility] [place] [facility] [address] [place] [address] Dr. Deepak Mongeutrophils/100 WBC (Bld)39.8 %Critically low43.0-75.0The [facility] OhioComment on above:Performed By: #### CVDTBH #### [facility] [place] [facility] [address] [place] [address] Dr. Deepak Stanfordlet mean volume (Bld) [Entitic vol]10.1 fLNormal9.5-13.5The [facility] OhioComment on above:Performed By: #### CVDTBH #### [facility] [place] [facility] [address] [place] [address] Dr. Deepak GreenfieldPLT311 103/bcGajayg619-280Tnj [facility] OhioComment on above: Performed By: #### CVDTBH #### [facility] [place] [facility] [address] [place] [address] Dr. Deepak GreenfieldRBC3.95 106/ulCritically low4.70-6.10The [facility] OhioComment on above:Performed By: #### CVDTBH #### [facility] [place] [facility] [address] [place] [address] Dr. Deepak GreenfieldWBC6.3 103/ulNormal4.0-11.0The [facility] OhioComment on above: Performed By: #### CVDTBH #### [facility] [place] [facility] [address] [place] [address] Dr. Deepak GreenfieldCT ABD/PELV W CONon 41-36-6862QT ABD/PELV W CONCT ABD/PELV W CON: 09/21/2021 11:32 PM EDT [...] Electronically authenticated by: JAMIE ALICIA Date: 2021-09-22 02:34Normal [facility] HEAD WO CONon 63-91-0074ZP HEAD WO CONEXAM: CT HEAD WO CON CLINICAL INDICATION: DISORIENTATION, [...] Electronically authenticated by: BRITTON FONTENOT Date: 2021-09-22 01:13NormKettering Health Behavioral Medical CenterLIPASEon 63-16-7628Mcbllj [Catalytic activity/Vol]28.0 U/L Critically low73.0-393.0[facility] John Medical CenterComment on above:Performed By: #### CBC #### [facility] [address] [place] [address] Dr. Deepak Moreno 14(COMP METB)on 13-08-7218Quhqaip [Mass/Vol]3.3 g/dL Critically low3.4-5.0The Nataliya HospitalComment on above:Performed By: #### BMP #### [facility] [address] [address] [address] Deepak GreenfieldAlbumin/Globulin [Mass ratio]0.9 {ratio}NormalThe [facility] OhioComment on above:Performed By: #### BMP #### [facility] [address] [address] [address] Deepak ReedP [Catalytic activity/Vol]38 U/LCritically yfe01-558Gcc [facility] OhioComment on above:Performed By: #### BMP #### [facility] [address] [address] [address] Deepak ReedT [Catalytic activity/Vol]91 U/LCritically bzwk33-51Fpq [facility] OhioComment on above:Performed By: #### BMP #### [facility] [address] [place] [address] Dr. Deepak Fischeron gap [Moles/Vol]10.2 mmol/LNormalThe [facility] Comment on above:Performed By: #### BMP #### [facility] [address] [address] [address] Deepak GreenfieldAST [Catalytic activity/Vol]50 U/LCritically abev62-24Nqu [facility] OhioComment on above:Performed By: #### BMP #### [facility] [address] [place] [address] Dr. Deepak GreenfieldBilirubin [Mass/Vol]0.3 mg/dLNormal0.2-1.0The [facility] Comment on above:Performed By: #### BMP #### [facility] [address] [address] [address] Deepak GreenfieldCalcium [Mass/Vol]8.6 mg/dLNormal8.5-10.1[facility] Comment on above:Performed By: #### BMP #### [facility] [address] [place] [address] Dr. Deepak GreenfieldChloride [Moles/Vol]106 mmol/SBjdgyp50-402RipUniversity Hospitals St. John Medical Center Comment on above:Performed By: #### BMP #### [facility] [address] [address] [address] Deepak GreenfieldCO2 [Moles/Vol]29.9 mmol/MGfytsb39.0-32.0[facility] Comment on above:Performed By: #### BMP #### [facility] [address] [address] [address] Deepak GreenfieldCreatinine [Mass/Vol]0.65 mg/dLCritically low0.70-1.30The [facility] OhioComment on above:Performed By: #### BMP #### [facility] [address] [address] [address] Sotelo ChangEGFR-AF ZIMBABWEAN>60Normal>=60The [facility] OhioComment on above:Performed By: #### BMP #### [facility] [address] [place] [address] Dr. Deepak McallisterGFR-NON AF ZIMBABWEAN>60Normal>=60The [facility] OhioComment on above:Performed By: #### BMP #### [facility] [address] [address] [address] Deepak GreenfieldGlobulin (S) [Mass/Vol]3.7 g/dLNormalThe [facility] OhioComment on above:Performed By: #### BMP #### [facility] [address] [place] [address] Dr. Deepak GreenfieldGlucose [Mass/Vol]105 mg/rCFqzjzo18-564HekUniversity Hospitals St. John Medical Center Comment on above:Performed By: #### BMP #### [facility] [address] [address] [address] Deepak GreenfieldPotassium [Moles/Vol]4.1 mmol/LNormal3.5-5.1[facility] Comment on above:Performed By: #### BMP #### [facility] [address] [address] [address] Deepak GreenfieldProtein [Mass/Vol]7.0 g/dLNormal6.4-8.2The [facility] Comment on above:Performed By: #### BMP #### [facility] [address] [place] [address] Dr. Deepak GreenfieldSodium [Moles/Vol]142 mmol/JMcgwey917-276Cjc [facility] Comment on above:Performed By: #### BMP #### [facility] [address] [address] [address] Deepak GreenfieldUrea nitrogen [Mass/Vol]13.0 mg/dLNormal7.0-18.0[facility]. John Medical CenterComment on above:Performed By: #### BMP #### [facility] [address] [address] [address] Deepak Murphy nitrogen/Creatinine [Mass ratio]20.0 mg/mgNoalThe [facility] OhioComment on above:Performed By: #### BMP #### [facility] [address] [address] [address] Deepak Greenfield Vital Signs Date TimeVital SignValuePerforming BvuytfunhDnwndbnh46-19-0250 10:54-0400Body paiqio242.48 cmDaniel Acevedo DO Work Phone: [phone] [place], [place] 4450209-02-2025 10:54-0400 Body mass index (BMI) [Ratio]25 kg/z9Rsidnz Acevedo DO Work Phone: [phone] [place], [place] 4450209-02-2025 10:54-0400 Body aqyotr87.19 kgDaniel Acevedo DO Work Phone: 1([phone])268-[address] [place], [place] 4450202-24-2025 08:27-0500 Body shzcuizlfsm35.4 [degF]Ap Scott DDS Work Phone: [phone]wJmmhwp03-08-7197 08:27-0500Diastolic blood mrkfqkaa84 mm[Hg]Ap Scott DDS Work Phone: 1(845) [phone]bEmbfgy68-16-5567 08:27-0500Heart rate84 /minLaith Chung-Israelhni DDS Work Phone: [phone]rWtvede81-97-4053 08:27-0500Respiratory rate16 /minLaith Chung-Israelhni DDS Work Phone: 1(335) [phone]hXagtqb68-51-2614 08:27-2126MvJ2% (BldA) [Mass fraction]96 %Ap Scott DDS Work Phone: [phone]mPprtkc62-59-5836 08:27-0500Systolic blood uiaqwtem633 mm[Hg]Ap Scott DDS Work Phone: [phone]bJxkeqq10-50-6831 07:02-0500Body zmrnav37.05 kg Ap Scott DDS Work Phone: 1(605) [phone]zJrhpog87-15-3239 21:37-0500Heart alvq062 /minPat RggxyyhcqzVibuxUnlrue10-47-1956 13:35-0500Body ezacioxtjzh05.91 [degF]Pat TtkafdtvhdJlrrwGrkfxp81-91-6142 13:35-0500Body .05 kgPat Anesthesia UhktxGyqydz91-36-2973 13:35-0500Diastolic blood xjyxklwm82 mm[Hg]Pat Anesthesia CgqnaWlnwav36-30-4639 13:35-0500Heart bmkm861 /minPat AnesthesiaMetroFairfield Medical Center 06-02-2024 13:35-0500Respiratory rate16 /minPat LcehgujiyfWgjtzZqmjvw84-28-4986 13:35-0500Systolic blood rydrsvtz141 mm[Hg]Pat KcejxxbvnmHhtktUvdole12-22-1687 13:25-0500Body esofkhxjmrh26.91 [degF]Boyd Harry MD Work Phone: 1(724) [phone]rDjvhxq38-63-6245 13:25-0500Body caebyv99.05 kg Boyd Harry MD Work Phone: 1(501) [phone]jItpkac05-92-3345 13:25-0500Diastolic blood lijgzjxu28 mm[Hg]Boyd Harry MD Work Phone: 1(535) [phone]kRpcxls12-75-8177 13:25-0500Heart cbxn473 /min Boyd Harry MD Work Phone: 1(189) [phone]fLtaspu84-11-1230 13:25-0500Respiratory rate16 /minEbre Harry MD Work Phone: 1(944) [phone]iBzeqvu69-58-2200 13:25-0500Systolic blood yfttosto150 mm[Hg]Boyd Harry MD Work Phone: 1(217) [phone]wjiNyaspx44-22-9398 13:05-0500Diastolic blood eydutnht48 mm[Hg]Rodriguez Rashel DO Work Phone: [facility]Ihrzbqxszk68-14-2549 13:05-0500Systolic blood mm[Hg]Rodriguze Rashel DO Work Phone: [facility] HospitalOikxghueob91-08-4003 11:34-0500Diastolic blood hgroxqcz01 mm[Hg]Rodriguez Rashel DO Work Phone: [facility] HospitalBxxkybpyro02-13-5146 11:34-0500Heart rate68 /min Rodriguez Rashel DO Work Phone: [facility] HospitalUhhyvsnhtk09-84-8238 11:34-9995FaC3% (BldA) [Mass fraction]98 %Rodriguez Rashel DO Work Phone: [facility] HospitalYubhsoujdy38-55-8814 11:34-0500Systolic blood caiwdvow681 mm[Hg]Rodriguez Rashel DO Work Phone: [facility] HospitalRdkaehtsdl45-88-4059 10:18-0400Blood Pressure LocationKathy Lue [facility]08-30-2023 10:18-0400Body coidrarmnfv64.06 [degF]Arline Lue [facility]08-30-2023 10:18-0400Diastolic blood osraywgd59 mm[Hg]Arline Lue [facility]08-30-2023 10:18-0400Heart rate84 /minKathy Lue [facility]08-30-2023 10:18-0400Systolic blood mm[Hg]Arline Lue [facility]09-06-2022 11:30-0400Body zimuzx126.48 cmHeidi Leonel Other [employer] Other 09-06-2022 11:30-0400Body mass index (BMI) [Ratio] 25.79 kg/s8Nsczo Leonel Other [employer] Other 09-06-2022 11:30-0400Body vdbnbqymgxt59.5 [degF]Antionette Leonel Other [employer] Other 09-06-2022 11:30-0400Body oyufpc02.96 kgHeidi Leonel Other [employer] Other 09-06-2022 11:30-0400Diastolic blood mm[Hg] Antionette Leonel Other [employer] Other 09-06-2022 11:30-0400Respiratory rate20 /minHeidi Leonel Other [employer] Other 09-06-2022 11:30-3523MnU8% (BldA) [Mass fraction]99 % Antionette Leonel Other [employer] Other 09-06-2022 11:30-0400Systolic blood ftmsavbs798 mm[Hg] Antionette Leonel Other [employer] Other 07-06-2022 10:29-0400Blood Pressure LocationKathy Lue [facility] 07-06-2022 10:29-0400Diastolic blood duclwucw76 mm[Hg] Arline Lue [facility] 07-06-2022 10:29-0400Heart pnxw318 /minKathy Lue [facility] 07-06-2022 10:29-0400Respiratory rate16 /minKathy Lue [facility] 07-06-2022 10:290400Systolic blood qaifjueo551 mm[Hg] Arline Lue [facility] Encounters Encounter DateEncounter TypeCare ProviderFacilityStart: 01-16-2025 End: 34-60-2289cxxpcrqvafJhxwpi A Acevedo DO Work Phone: [facility] Work Phone: Start: 01-16-2025 End: 12-48-3961Wkqjqlm encounter procedureAntionette Little APRN [facility] Work Phone: Start: 12-19-2024 End: 78-74-9892ztffxqkauaBpoooj A Acevedo DO Work Phone: [facility] Work Phone: Start: 12-19-2024 End: 12-16-2719Lvvyvqz encounter procedureMarissa Schwarz APRNSelect at [facility] Work Phone: Start: 12-11-2024 End: 34-21-0101Qksjvfe encounter procedureFilomena Alfaro DDS Work Phone: [employer] [facility] DentistryStart: 40-49-6775icajugtuwmQQOSZGD PROVIDERFacility:[facility] HospitalStart: 07-11-2024 End: 84-86-8478yvcmoirxwvFcdyzqjcqC[facility] Work Phone: Start: 07-11-2024 End: 40-61-2881Zlmxits encounter procedureFormerly [facility] Physician [facility] Work Phone: Start: 03-34-2498urqiftfccvQZYDKXV PROVIDER Facility:[facility] HospitalStart: 06-12-2024 End: 86-25-0580tqcsbpbpxtFHCXL AL-MASHNIFacility:[facility] HospitalStart: 06-12-2024 End: 94-03-1388Xphwlxlrav hospital visit by Susan Scott DDS Work Phone: [facility] SurgeryStart: 06-12-2024 End: 62-33-2434Fpnmpac encounter procedureAp Scott DDS Work Phone: [facility] Centerexpresscoin DentistryStart: 06-05-2024 End: 63-79-1162Dzyrdthtr encounterMelotoniel Roy RNMetroHealth Pre-Admission TestingComment on above:PAT (Informed Consent & Anesthesia consent obtained) Start: 06-02-2024 End: 21-36-8776Wrfzxrtswy hospital visit by physicianMh Op Xray 1MetroHealth RadiologyComment on above:Pre-op evaluationStart: 06-02-2024 End: 87-95-1338amuvsjbcwgMJFKAYQ PROVIDERFacility:[facility] HospitalStart: 06-02-2024 Encounter for other preprocedural examinationUNKNOWN PROVIDERThe [facility] SystemStart: 06-02-2024 End: 61-73-3305Vfaxho outpatient new 45 minutesPat AnesthesiaMetroHealth Pre- Admission TestingComment on above:Preop examination (Primary Dx); Intellectual disability; Hypothyroidism, unspecified type; Seizure (HCC); Edema, unspecified type; Tachycardia, unspecified; Cardiomegaly; Abnormal electrocardiogram (ECG) (EKG); Abnormal electrocardiogram (ECG) (EKG); Abnormal electrocardiogram (ECG) (EKG)Pre-op evaluation (Primary Dx); Mental disability; Hypothyroidism, unspecified type; Abnormal thyroid blood testStart: 06-02-2024 End: 09-66-0795Xgbftrbfxzqia examination Elvira Harry MD Work Phone: [facility] Work Phone: start: 06-02-2024 End: 21-03-2488vhjxbkesesPQKQPGDL BOAKYEFacility:[facility] CENTERROHealthStart: 05-31-2024 End: 23-77-3125Wjrjdl flowsheetNicole Rashel DO Work Phone: aNA BELLEVUEStart: 05-31-2024 End: 97-63-7145Rqlohx flowsheetNicole Rashel DO Work Phone: aNA BELLEVUEStart: 05-31-2024 End: 20-60-1910Tjufei outpatient visit 25 minutesNicole Rashel DO Work Phone: ana BELLEVUEComment on above:Generalized convulsive epilepsy (CMS/HCC) (Primary Dx); 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); Spastic hemiplegia, nondominant side (HCC) (CMS/HCC); Spastic hemiplegia affecting dominant side (CMS/HCC); Severe intellectual disabilities (CMS/HCC); Behavior disturbance (CMS/HCC)Start: 05-31-2024 End: 12-09-7426oayqhguompBBZZZF DANNERNot AvailableStart: 03-28-2024 End: 57-39-3259Qxapxyvrk to same day surgery Miguel Adair DDS Work Phone: [facility]Start: 03-07-2024 End: 67-05-5876Gqytjl flowsheetNicole Rashel DO Work Phone: [facility] R[facility]TEStart: 03-07-2024 End: 71-13-2836Sweije flowsheetNicole Rashel DO Work Phone: noms [facility] ROUTEStart: 03-07-2024 End: 55-41-4382Yvwpym outpatient visit 25 minutesNicole Rashel DO Work Phone: noms [facility] ROUTEComment on above:Generalized convulsive epilepsy (CMS/HCC) (Primary Dx); 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); Spastic hemiplegia affecting dominant side (CMS/HCC); Spastic hemiplegia, nondominant side (HCC) (CMS/HCC); Severe intellectual disabilities (CMS/HCC)Start: 03-07-2024 End: 11-91-7639xohhtlnrwpSNJBAK DANNERNot AvailableStart: 01-11-2024 End: 85-29-9529cggkfqoqkeQyeknsqmpC[facility] Clinic [facility] Work Phone: Start: 01-11-2024 End: 26-65-3286Vulnhyw encounter procedureFormerly [facility] Work Phone: Start: 11-07-2023 End: 40-91-2259Bvcitf encounterAbundio Vishnu DDS Work Phone: [facility]HealthStart: 08-25-2023 End: 53-11-3519abicpemsadTOZLDT DANNERNot AvailableStart: 07-06-2023 End: 67-21-4873ohajmkciifUrgquueqfCleveland Clinic [facility]inte Hospital Work Phone: Start: 07-06-2023 End: 44-35-8035Kwmcrwe encounter procedureFirriverside [facility] Work Phone: Start: 01-05-2023 End: 47-67-8169fmdmejuihnZxiad Leonel Other [facility] [employer] Other Start: 78-13-0808Bmpurv outpatient visit 25 minutes Antionette GastFPG Pulmonary DiseaseStart: 12-16-2022 End: 87-72-2368emhczqzscoCcquk Anabel LueFacility:EU BellevueStart: 12-16-2022 End: 87-11-3446Efwqbdu encounter procedureTheresaevangelista Levine [facility] Nataliya start: 08-04-2022 End: 31-75-2570zsbcrlstpiIR DANIEL A HERRINGFacility:M6Tectn: 07-29-2022 End: 08-47-2975Xzgpuxtlba and management of inpatientDR FAM ACEVEDO Facility:C0Tjanc: 07-26-2022 End: 91-73-3184ftqjooekeaDB DANIEL A HERRINGFacility:P1Gfarq: 07-23-2022 End: 66-13-7896dvdvjslzsoJYAFQW HERRINGFacility:FTMCStart: 07-23-2022 End: 12-22-2499Sqfhdxo encounter procedureDACHUCKIE LORENZO [facility] Start: 06-23-2022 End: 17-50-2796ckzabsgxrbJkpih Leonel Other [facility] [employer] Other Start: 01-85-3989Cpslxb outpatient visit 25 minutes Antionette GastFPG Pulmonary DiseaseStart: 06-03-2022 End: 66-76-3614zscklxezllUB DANIEL A HERRINGFacility:S8Xvncw: 18-22-9767Gdxlow encounterAbundio Mares DDS Work Phone: [facility]HealthStart: 04-22-2022 End: 00-39-4206idbxwimlmfIF FAM A HERRINGFacility:U8Bcbjw: 03-19-2022 End: 19-18-1716numbzzjkrfGZ DANIEL A HERRINGFacility:R3Zxbrt: 03-10-2022 End: 16-24-6074dpngqepacdQA FAM A HERRINGFacility:C5Xmrgq: 01-24-2022 End: 49-09-7229tnkyafylziDO JACK HAY .Facility:E9Coutm: 01-18-2022 End: 94-32-6996ophdyzijvnEOUGQW RODRIGUEZ .Facility:H2Vjbjj: 01-13-2022 ambulatoryDR RODRIGUEZ KISERFacility:R4Tsiuv: 01-12-2022 End: 86-88-2310lsrlcjjnboVM NICOLE DANNERFacility:V9Bifns: 01-06-2022 End: 25-60-2721pcvtksagnuTM DANIEL A HERRINGFacility:S8Ngwfp: 12-23-2021 End: 59-27-4922vnvydcapxaGeygd Leonel Other [facility] [employer] Other Start: 22-96-5059Ptdpsp outpatient visit 25 minutes Antionette GastFPG Pulmonary DiseaseStart: 12-16-2021 End: 11-18-6048Kmczrkw encounter procedureMora Powell [facility] Work Phone: [facility] RehabilitationStart: 12-10-2021 End: 21-14-1193Ccipxml encounter procedureArline Levine [facility] start: 11-20-2021 End: 78-04-9154oamxkvuwiqEN DANIEL A HERRINGFacility:N7Yrofq: 11-13-2021 End: 70-15-3362wkqayhjgiyBQJIN M LUE .Facility:G9Comsw: 10-31-2021 End: 35-20-4939hexgbwzluxPC DANIEL A HERRINGFacility:N6Voboi: 10-22-2021 End: 97-01-3854Fuewews encounter procedureArline Levine [facility] start: 10-21-2021 End: 88-53-9354kjxabiemseUG DANIEL A HERRINGFacility:F4Cggoi: 09-29-2021 End: 25-65-2712ohhdbdxrgiDZ DANIEL A HERRINGFacility:T3Sjyrv: 09-22-2021 End: 63-38-3973wpgeqcavtlZQWTB PARKERFacility:H1 Procedures DateProcedureProcedure DetailPerforming ClinicianStart: 06-12-2024 End: 81-28-3376UOWWJV RESTORATIONSLajohnson Scott DDS Work Phone: Start: 79-28-2567Iqbmnbfycl exam chest 2 viewsEmpravin Harry MD Work Phone: Start: 16-22-2316Sxphn count complete automated Сергей Alves MD Work Phone: start: 80-49-5986Xto routine ecg w/least 12 lds trcg only w/o i&rChrsoledad Alves MD Work Phone: start: 15-54-4895Btbc julisa implt npgt phys/qhp w/o programmingNicole Rashel DO Work Phone: Start: 11-27-0763Qhwv julisa implt npgt phys/qhp w/o programmingNicole Rashel DO Work Phone: Plan of Treatment DateCare ActivityDetailAuthorStart: 90-91-5710Rcjckyyj (RZV) Vaccine (1 of 2) Shingles (RZV) Vaccine (1 of 2)[facility]roHealthStart: 72-54-5477Mzyqi panel CholesterolMetroHealthStart: 93-08-5265Crlkqas stimulating hormone measurement TSHMetroHealthStart: 23-46-1808Yjaimqvor vaccinationInfluenza Vaccine (#1) MetroHealthStart: 19-45-2877QMUBH-19 Vaccine ( season)COVID-19 Vaccine ( season)MetroHealthStart: 72-83-9242Ylzalitpa vaccination Influenza Vaccine (#1)MetroHealthStart: 12-11-2024 End: 47-47-0875Uusiios encounter procedureMetroHealth [facility] Start: 11-20-2024 End: 97-49-4995Ewrfeuf encounter elkyjrvlz66/04/2025 11:20 AM EDT Office Visit YENNIFER AN [address] [place] [address] Marissa Gonzalez, PUNEET [address] [place] [address] YENNIFER REEDtart: 08-85-5885Lkoiubrygi hospital visit by physician 06/12/2024 Hospital Encounter [facility] [address] [place] [address] Ap Scott, KETAN [address] [place] [address] [facility] SurgeryStart: 06-02-2024 End: 19-35-6171Lbjdtuh encounter dsgkwglty57/14/2025 1:30 PM EST Office Visit [facility] [address] [place] [address] Boyd Harry MD [address] [place], [place] [address] [facility] Start: 05-31-2024 End: 40-83-7692Frevybr encounter procedureNOMS NATALIYA [facility] ROUTEComment on above:ArrivedStart: 13-12-0255Eysyacq to Medicare Visit (G0402)Welcome to Medicare Visit (G0402)[facility]: 03-07-2024 End: 17-21-5249Xanizqq encounter bostjwurw79/19/2024 11:30 AM EST Office Visit [facility] [address] [place] [phone] Rodriguez Kiser DO [address] [id number] ArrivedNOPSE&G CHILDREN[facility] H[facility]ITALUE [facility] ROUTEComment on above: ArrivedStart: 71-27-7875Mnnrqfrxa vaccinationInfluenza Vaccine (#1)[facility] Start: 13-96-6569UJXJH-19 Vaccine ( season)COVID-19 Vaccine ( season)[facility]HealthStart: 24-68-8832Oarvutkoh vaccinationInfluenza Vaccine (#1)[facility] HealthcareStart: 15-51-9248UYLWF-19 Vaccine ( season)COVID-19 Vaccine ( season)[facility]HealthStart: 01-17-2022 Influenza vaccinationInfluenza Vaccine (#1)[facility]roHealthStart: 40-91-7277Liagv panelCholesterolMetroHealthStart: 63-42-5763Lcwlaq wellness visitAnnual Wellness Visit (G0438)MetroHealthStart: 79-61-1477FUP Vaccine (optional start 27-45 years)HPV Vaccine (optional start 27-45 years)[facility]HealthStart: 02-01-1999 Hepatitis A (HAV) Vaccine (optional start 19+ years)Hepatitis A (HAV) Vaccine (optional start 19+ years)[facility]HealthStart: 34-32-7397Dbkqzysuq B vaccination Hepatitis B (HBV) Vaccine (1 of 3 - 19+ 3-dose series)[facility]HealthStart: 03-04-6328Hcmrrustu C screeningHepatitis C AntibodyMetroHealthStart: 02-01-1998 Tetanus + diphtheria + acellular pertussis vaccine (product)Tdap Booster MetroHealthStart: 43-34-7443CSL screeningHIV TestMetroHealthStart: 1980 COVID-19 Vaccine (#1)COVID-19 Vaccine (#1)[facility]roHealthStart: 1980Medicare Annual Wellness (AWV)Medicare Annual Wellness (AWV)[facility] HealthcareStart: 57-67-0361Zsxqkqil specific antigen measurementProstate Cancer Screening (shared decision making)MetroHealthDENTAL RESTORATIONSDENTAL RESTORATIONS Routine scheduled CariesMetroHealth Immunizations Immunization DateImmunizationNotesCare CqzpxoloEdgwwmda92-47-4604ilditxjitcdx conjugate vaccine, 13 valentKrtrumanen Urmetz [facility] Work Phone: [phone]yLalfck20-91-5676fdxubojjf, injectable, quadrivalent, preservative freeMora Ulloametz [facility] Work Phone: [phone]vByrfrb70-68-3625bgxpgmdbj virus vaccine, unspecified formulationKristen Urmetz RD Work Phone: [facility]10-25-2017influenza virus vaccine, unspecified formulationKathy Lue [facility]10-25-2017influenza, injectable, quadrivalent, contains preservative Mora Urmetz [facility] Work Phone: [phone]iHmhvtb76-84-9774iqfhhvhqr virus vaccine, unspecified formulationKathy Lue [facility]10-22-2015influenza, injectable, quadrivalent, preservative freeKristen Urmetz [facility] Work Phone: [phone]gIfkkim55-18-4605cpvmgeoibzok polysaccharide vaccine, 23 valentKristen Urmetz [facility] Work Phone: [phone]dbgaWgxzmo76-03-6275tajvhzvga virus vaccine, unspecified formulationKathy Lue [facility]09-14-2011influenza, seasonal, injectableKristen Urmetz [facility] Work Phone: [phone]kope mlmwmaetl-C8M9-52, preservative-free, injectableKristen Urmetz [facility] Work Phone: [phone]47061GwsurRfcblq32-19-3485munnomdvb virus vaccine, whole virusKristen Urmetz [facility] Work Phone: [phone] [id number]yhxaht, wholeKathy Lue [facility] HospitalNEGATED: Highlighted row has not occurred!31-20-0852TPBN-CoV-2 mRNA (tozinameran 5y-11y) vaccineKathy Lue [facility] Payers DatePayer CategoryPayerPolicy [id number] --Stand AloneDENTAL-MEDICAID [id number] 2018Medicaid [id number] 2012Medicare 1.2.840.[id number] 2012Medicare FFS 1.2.840.913329.1.13.56.2.7.9.689047.[id number] 2.0.1.083077.3.57[id number] 2.0.1.396443.3.57[id number] 2.0.1.853924.3.57[id number] 2.840.1.945075.3.57[id number] 2.840.1.117936.3.57[id number] 2.840.1.719369.3.57[id number] 2.840.1.095352.3.57[id number] 2.0.1.018443.3.57[id number] 2.840.1.626674.3.57[id number] 2..1.589568.3.579.[id number] 2.0.1.778389.3.57[id number] 2..1.072354.3.57[id number] 2..1.811813.3.579.[id number] 2..1.236380.3.57[id number] 2..1.554616.3.579.[id number] 2..1.128813.3.579.2.732 [id number] 2..1.022488. [id number] 2.840.5.38727[id number] 2.0.1.309059.3.57[id number] 2.840.1.890604.3.57[id number] 2.840.1.777155.3.579.[id number] 2.16.840.1.978565.3.579.[id number] 2.16.840.1.954134.3.579.2.59702-92-7937Omfpmya9728232 2.16.840.1.968279.3.579.2.97156-96-6451Uiepxuv5011765 2.16.840.1.781525.3.579.2.25637-35-4625Mynmknl2365597 2.16.840.1.304705.3.579.2.58634-08-0006Kjedujf5385007 2.16.840.1.983592.3.579.2.46060-43-7510Fiezmro4831829 2.16.840.1.107440.3.579.2.53000-31-5338Mnwdbyu8667697 2.16.840.1.349042.3.579.2.52336-58-9435Gakdszi0891815 2.16.840.1.293560.3.57[id number] 2.16.840.1.924440.3.57[id number] 2.16.840.1.625259.3.579.2.593Self-paySelf Pay [id number] Social History DateTypeDetailFacilityTobacco smoking statusNo Smoking Status EnteredExec[facility] start: 11-02-2022 End: 19-46-6706Mvg Assigned At BirthMaleExec[facility] of [facility] start: 03-28-2020 End: 43-33-2264Doiqhwl smoking status NHISTobacco smoking consumption unknown [facility]ert[facility]: 74-35-0848Uai Assigned At BirthNot on fileMetroHealthTobacco smoking statusNo Smoking Status EnteredCity Hospitaltart: 11-02-2022 End: 38-80-2080Ntjgvco smoking statusNever smoked tobacco (finding)[facility] HospitalTos[facility] smoking statusNever [facility] Centertart: 36-40-3733Yse Assigned At BirthC[facility] Clinic Mary[facility] Hospitaltart: 11-02-2022 End: 81-43-1206Phwmycgzb beverage intakeEx-drinker (finding)[facility] Start: 11-02-2022 End: 45-33-7001Lirinmg of Social functionNOMS HealthcareStart: 02-21-2012 End: 56-03-7617JwlCmuy (finding)[facility] Functional Status TimeJbrzdgbhmvPdannhJjfhhwhh70-58-1588Wafhtxgjod StatusN/AExec[facility] Hospital08-24-2022Functional StatusN/A[facility]07-06-2022Functional StatusN/A [facility] Clinical Notes 10-22-2021 to 12-19-2024 Note Date & ZeakUllnWaxmvlcx55-40-9272 Evaluation note* Diagnosis Onset Date Resolution Status Admit Date Aphasia acuteSept2024 10:36am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acuteSept2024 10:36amGeneralized convulsive epilepsyacute December 19, 2024 10:36amMotor delayacuteSept2024 10:36amSevere intellectual disabilityacuteSept2024 10:36amSpastic hemiplegia affecting dominant sideacuteSept2024 10:36amSpastic hemiplegia affecting nondominant sideacuteSept2024 10:36amCOPD (chronic obstructive pulmonary disease)acuteSept2024 10:26amSevere intellectual disabilityacuteSeptember 2024 10:26am [facility] Work Phone: 1(822) 908-578908-25-2025 History of Present illness Narrative* Filomena Alfaro DDS - 12/11/2024 9:51 AM EDT ----- Wednesday, December 11, 2024 at 11:07:03 AM ----- ----- Provider: [id number] Resident Flaco -- Clinic: [place] ----- LIMITED EXAM Patient presents for Scheduled [...] for definitive treatment. Guardian mother Katia Lopez. [phone]. [facility] [phone] EXT [id number] ( [facility]'s appt) Contact Information [phone] (Home Phone) Alternate Career Services Manager KORY (Other) NOTE: Scheduled for OR ----- Signed on Wednesday, December 11, 2024 at 12:38:13 PM ----- ----- Provider: [id number] Heriberto Jacobs DMD -- Clinic: [place] ----- documented in this [id number] Hospital Discharge instructions* Discharge Instructions* Adalgisa Maldonado RN - 06/12/2024 8:24 AM EST PERIOPERATIVE DISCHARGE/HOME-GOING INSTRUCTIONS ANESTHESIA - GENERAL (ADULT) If a problem arises, you may contact your physician by calling [phone] and asking for the resident identification officer for Dental service. Special Care Needs: Activity: [...] very uncomfortable and can t urinate, call [phone] or come to the emergency room. A [...] to Care for Your Mouth and Teeth (Tunisian) documented in this xofbdylayZnqgyNykrmn67-91-8760 History of Present illness Narrative* Ap Scott DDS - 06/12/2024 8:18 AM EST ----- Wednesday, June 12, 2024 at 8:41:56 AM ----- ----- Provider: [id number] - Ap Adams DDS -- Clinic: [facility] ----- [facility], pt is ready for tx. [place], only scaling was done. Operative Note PHE OR 3 Parish Lopez 44 year old male Surgical Contact Serial Number: [id number] Preoperative Diagnosis: Pre-op Diagnosis * Caries [K02.9] Mental disability COPD Hyperthyroidism Seizures HLD GERD Postoperative Diagnosis: Mental Disability COPD Hyperthyroidism Seizures HLD GERD Procedures: Full mouth x-rays [73514] Comprehensive Exam [69520] Dental prophylaxis [72442] Surgeon: Ap Scott DDS Fulfillment Representative Surgeon: Hansel Burgess DDS; Beatris Thompson DMD [...] 2024 at 8:46:14 AM ----- ----- Provider: [id number] - Ap Adams DDS -- Clinic: [facility] ----- documented in this p[id number] Surgery Surgical operation note* OP Note - Ap Scott DDS - 06/12/2024 7:07 AM EST Operative Note PHE OR 3 Parish Lopez 44 year old male Surgical Contact Serial Number: [id number] Preoperative Diagnosis: Pre-op Diagnosis * Caries [K02.9] Mental disability COPD Hyperthyroidism Seizures HLD GERD Postoperative Diagnosis: Mental Disability COPD Hyperthyroidism Seizures HLD GERD Procedures: Full mouth x-rays [27852] Comprehensive Exam [90036] Dental prophylaxis [13786] Surgeon: Ap Scott DDS Fulfillment Representative Surgeon: Hansel Burgess DDS; Beatris Thompson DMD [...] procedure. Beatris Thompson DDS 06/12/2024 7:07 AM [employer] Work Phone: 1(692) 939-402702-24-2025 Miscellaneous Notes* OP Note - Ap Scott DDS - 06/12/2024 7:07 AM EST Operative Note PHE OR 3 Parish Lopez 44 year old male Surgical Contact Serial Number: [id number] Preoperative Diagnosis: Pre-op Diagnosis * Caries [K02.9] Mental disability COPD Hyperthyroidism Seizures HLD GERD Postoperative Diagnosis: Mental Disability COPD Hyperthyroidism Seizures HLD GERD Procedures: Full mouth x-rays [46233] Comprehensive Exam [30879] Dental prophylaxis [51272] Surgeon: Ap Scott DDS Fulfillment Representative Surgeon: Hansel Burgess DDS; Beatris Thompson DMD [...] OR BLOOD COMPONENTS: The patient and/or legal risk control field representative has been explained the need for transfusion of blood and/or blood components. The risks, benefits and alternatives have been explained. Questions concerning the transfusion of blood or blood components have been asked andanswered. The patient and/or legal risk control field representative have REFUSED TO CONSENT transfusion of blood or blood products. 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 The risks, benefits and alternatives have been explained. Questions concerning the transfusion of blood or blood components have been asked andanswered. The patient and/or legal risk control field representative have REFUSED TO CONSENT transfusion of blood or blood products. PER PATIENT'S MOTHER [facility] Work Phone: 1(205) 741-799402-24-2025 Surgery Postoperative evaluation and management note* Brief Operative Note - Beatris Thompson DDS - 06/12/2024 7:03 AM EST Brief Operative Note PHE OR 3 Parish Lopez 44 year old male Surgical Contact Serial Number: [id number] Preoperative Diagnosis: Pre-op Diagnosis * Caries [K02.9] Mental disability COPD Hyperthyroidism Seizures HLD GERD Postoperative Diagnosis: Mental disability COPD Hyperthyroidism Seizures HLD GERD Procedures: Full mouth x-rays [01307] Comprehensive Exam [08839] Dental prophylaxis [11671] Surgeon(s): Surgeon(s): Ap Scott DDS Staff: Railway Traction Line Worker Nurse: Felisha Moore Anesthesia: General Anesthesiologist: Blake [...] Scott DDS at 06/12/2024 8:43 AM EST [id number] Consult note* Beatris Thompson DDS - 06/12/2024 [...] Scott DDS at 06/12/2024 8:43 AM EST PpsblNmnxvc94-01-5504 NoteSurgical Attestation: I have reviewed the patient's History and Physical Examination. I have personally seen and evaluated the patient, repeating anthony portions. There is no significant interval change. Surgery is still indicated. Yes Consent reviewed and signed by patient/family: Yes Operative site verified and marked: site verified but not marked as not anatomically possible Beatris Thompson DDS 06/12/2024 6:59 AMThe [facility]02-24-2025 Consult note* Beatris Thompson DDS - 06/12/2024 [...] 06/12/2024 8:43 AM EST documented in this [id number] Telephone encounter Note* Telephone Encounter - Blessing Roy RN - 06/05/2024 7:21 AM EST Informed Consent for dental surgery & Anesthesia consent obtained and scanned into EPIC. Scheduled for surgery 06/12/2024. NimvlSwczgc23-39-5654 Miscellaneous Notes* Telephone Encounter - Blessing Roy RN - 06/05/2024 7:21 AM EST Informed Consent for dental surgery & Anesthesia consent obtained and scanned into EPIC. Scheduled for surgery 06/12/2024. documented in this [id number] Note* Addendum Note - Boyd Harry MD - 06/02/2024 5:54 PM ESTAddended by: BOYD HARRY on: 06/02/2024 05:54 PM Modules accepted: Orders [id number] Miscellaneous Notes* Addendum Note - Boyd Harry MD - 06/02/2024 5:54 PM ESTAddended by: BOYD HARRY on: 06/02/2024 05:54 PM Modules accepted: Orders documented in this [id number] NoteEXAMINATION: XR CHEST PA+LAT 2 VIEWS 06/02/2024 [...] images and agree with the resident's interpretation. 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 Contact the Pre-Surgical Evaluation department at [phone] or your surgeon's office with any additional questionsThe [facility]02-14-2025 Instructions* Patient Instructions* Сергей Alves MD - [...] procedure. Contact the Pre-Surgical Evaluation department at [phone] or your surgeon's office with any additional questions documented in this [id number] Evaluation note* PAT Appt H&P - Сергей Alves MD - 06/02/2024 1:34 PM EST Pre-Admission Testing Consultation Parish Lopez, [id number] 44 year old Male 06/02/2024 Consult placed [...] 1 extraction; Surgeon: Ap Scott DDS; Location: [facility]; Service: Dental Past Medical History and Review of Systems Pulmonary (+) COPD (-) sleep apnea Dental ROS (+) teeth problems missing Endo (+) hyperthyroidism Neuro/Psych (+) seizures Comment: intellectual disability Vagus nerve stimulator Cardiovascular (+) hyperlipidemia (-) hypertension, past OR, CAD, angina GI/Hepatic/Renal (+) GERD (-) renal [...] - referring and communicating with other health hospice care consultant (when not separately reported) - documenting clinical information in the electronic or other health record - independently interpreting results (not separately reported) and communicating results to the patient/family/caregiver - care coordination (not separately reported). Interviewer signature: Сергей Alves MD 1:35 PM 06/02/2024 Cosigned by Jonnie Aguilar MD at 06/02/2024 2:05 PM EST [id number] Miscellaneous Notes* PAT Appt H&P - Сергей Alves MD - 06/02/2024 1:34 PM EST Pre-Admission Testing Consultation Parish Lopez, [id number] 44 year old Male 06/02/2024 Consult placed [...] 1 extraction; Surgeon: Ap Scott DDS; Location: [facility]; Service: Dental Past Medical History and Review of Systems Pulmonary (+) COPD (-) sleep apnea Dental ROS (+) teeth problems missing Endo (+) hyperthyroidism Neuro/Psych (+) seizures Comment: intellectual disability Vagus nerve stimulator Cardiovascular (+) hyperlipidemia (-) hypertension, past OR, CAD, angina GI/Hepatic/Renal (+) GERD (-) renal [...] - referring and communicating with other health hospice care consultant (when not separately reported) - documenting clinical information in the electronic or other health record - independently interpreting results (not separately reported) and communicating results to the patient/family/caregiver - care coordination (not separately reported). Interviewer signature: Сергей Alves MD 1:35 PM 06/02/2024 Cosigned by Jonnie Aguilar MD at 06/02/2024 2:05 PM EST documented in this [id number] NotePre-Admission Testing Consultation Parish Lopez, [id number] 44 year old Male 06/02/2024 Consult placed to [facility] by Dr. Zamora due to significant PMH of Seizures, mental disability, hypothyroid undergoing dental restorations 06/12 [facility] Triage Risk Score Total Score: 2 2 [...] No STOP BANG: STOP-BANG Row Name 06/02/24 1331 History of sleep apnea? No Snoring No [...] DENtal, xrays, examinations, 1 extraction; Surgeon: Ap Sctot DDS; Location: [facility]; Service: Dental Past Medical History and Review of Systems Pulmonary (+) COPD (-) sleep apnea Dental ROS (+) teeth problems missing Endo (+) hyperthyroidism Neuro/Psych (+) seizures Comment: intellectual disability Vagus nerve stimulator Cardiovascular (+) hyperlipidemia (-) hypertension, past OR, CAD, angina GI/Hepatic/Renal (+) GERD (-) renal [...] medically appropriate examinati (more content not included)...[employer] [id number] History of Present illness Narrative* Rodriguez Kiser [...] 124 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 documented in this encounterSoutheast Missouri HospitalScvjlrmkdb30-33-1702 History of Present illness Narrative* Rodriguez Kiser [...] Battery Life: 06/20 full Model: AspireSR 106 Seriel #: [id number] Manufactured: 2020 Implant Date: 09/09/2021 Assessment/Plan Diagnoses [...] to clinic: 6 months. documented in this encounterSoutheast Missouri HospitalKreqquelkt81-93-4752 Evaluation note* Encounter Date Diagnosis Assessment Notes Treatment Notes Treatment Clinical Notes Dec, COPD (chronic obstructive pulmon gauri disease) (ICD-10 - J44.9) [employer] Other 08-30-2023 Hospital Discharge instructions Patient Education [...] provider. Document Revised: 08/14/2021 Document Reviewed: 08/14/2021 [employer] Patient Education 2022 [employer]. Follow Up Care 12/10/2021 11:51:23 With:Abner BYRNE, JUNIOR Hawk, URO Address: When: Unknown Comments:LENORA [facility] 03-07-2023 Evaluation note* Encounter Date Diagnosis Assessment Notes Treatment Notes Treatment Clinical Notes Jun, COPD (chronic obstructive pulmon gauri disease) (ICD-10 - J44.9) Continue with respiratory regemin, including VEST therapy, as you currently are doing. Call office with respiratory questions or concerns. [employer] Other 09-06-2022 Evaluation note* Encounter Date Diagnosis Assessment Notes Treatment Notes Treatment Clinical Notes Dec, COPD (chronic obstructive pulmon gauri disease) (ICD-10 - J44.9) Continue with VEST therapy twice a day. Ok to increase to TID if needed. [employer] Other 08-30-2022 Instructions* Patient Instructions* Mora Powell RDH - 12/16/2021 11:57 AM EDT Pt presented today for OR evaluation. Limited eval was completed. Pt's case is not urgent updated contact information and placed Pt on OR list. Step by step process for OR flyer was given to caregiver. Please wait for phone call from OR coordinator. documented in this [id number] History of Present illness Narrative* Mora Powell RDH - 12/16/2021 11:42 AM EDT ----- Wednesday, December 16, 2021 at 12:03:50 PM ----- ----- Provider: [id number] - Mora Powell Hygienist -- Clinic: [place] ----- [facility], Pt is ready for tx. Pt presented for dental evaluation for future OR. Caregiver in the room. Patient is non-verbal. Severe intellectual disability, seizure disorder Caregiver stated patient is not pain and no complaining. Radiograph taken today: no possible due to patient behavior Case requested for OR. Guardian mother Katia Lopez. [phone]. [facility] [phone] EXT [id number] ( [facility] [place] AVS printed and handed flyer for step by step instruction of OR process to Caregiver exam By: Elliott Ham [facility] [place]. OR ----- Signed on Thursday, December 16, 2021 at 12:18:18 PM ----- ----- Provider: [id number] - Ap Adams DDS -- Clinic: [place] ----- documented in this [id number] Hospital Discharge instructions Patient Education 12/10/2021 11:47:35 [...] (electrical nerve stimulation). For women, using a hospitalist medical director to prevent urine leaks. This is a [...] right after experiencing incontinence. General instructions Take eddt-yzr-zhumkab and prescription medicines only as told by [...] 05/13/2005 Document Revised: 04/15/2018 Document Reviewed: 07/15/2017 [employer] Patient Education 2020 [employer]ocyte Follow Up Care 10/22/2021 11:38:20 With:Abner BYRNE, JUNIOR Hawk, URO Address: When:1 year Comments:W/ renal US [facility] 07-06-2022 Hospital Discharge instructions Patient Education [...] (electrical nerve stimulation). For women, using a hospitalist medical director to prevent urine leaks. This is a [...] right after experiencing incontinence. General instructions Take uufd-teq-zermmzf and prescription medicines only as told by [...] 05/13/2005 Document Revised: 04/15/2018 Document Reviewed: 07/15/2017 [employer] Patient Education 2020 [employer]. 10/22/2021 11:42:30 Renal Mass Renal Mass A [...] provider gives to you. In general: Take zhvw-ruq-rkvxijg and prescription medicines only as told by [...] 10/31/2014 Document Revised: 05/12/2018 Document Reviewed: 05/12/2018 [employer] Patient Education 2020 [employer]. Follow Up Care 09/22/2021 14:10:46 With:Arline Levine MD, URL, URO Address: When:1 month [facility] evaluation + Plan note Future Appointments Appointment Date:11/19/2021 10:00:00 AM Scheduled Provider:Arline Levine MD Location:[facility] Appointment Type:URO Office Visit [facility] evaluation + Plan note Future Appointments Appointment Date:12/16/2022 10:15:00 AM Scheduled Provider:Arline Levine MD Location:[facility] Appointment Type:URO Office Visit [facility] evalrwuozm note* Diagnosis Onset Date Resolution Status COPD (chronic obstructive pulmonary dise ase) acuteSevere intellectual disabilityacute [facility] Work Phone: Evaluation note* Diagnosis Generalized [...] Status Admit Date COPD (chronic obstructive pulmonary dise ase) acuteMarch 2024 9:09amSevere intellectual disabilityacuteMarch 2024 9:09am [facility] Work Phone: Evaluation note* Diagnosis Preop [...] in this encounter [facility]HealthEvaluation noteNo assessment information availableRiverside Methodist Hospital Work Phone: History general Narrative - Reported* Type Description Date Medical History Mental retardation Medical HistorySeizure DisorderMedical HistoryWilliams SyndromeMedical History ADDMedical HistoryHypothyroidismMedical HistorySpastic QuadraparesisMedical HistoryOsteoporosisMedical HistoryWilliams-Beuren syndromeMedical HistorySeizure disorderMedical HistorySeizure disorderMedical HistoryCOPDSurgical HistoryVNS [id number] [employer] Other Hospital course Narrative No data available for this section [facility] Hospital Discharge instructions No data available for this section [facility] No data available for this section [facility] reason for referral (narrative)No reason for referral information availableRiverside Methodist Hospital Work Phone: Reason for visit Narrative* Diagnostic X-Ray (Routine) - ClosedSpecialtyDiagnoses / ProceduresReferred By ContactReferred To Contact Radiology Diagnoses Pre-op evaluation Procedures XR CHEST PA+LAT 2 VIEWS Boyd Harry MD [address] [place] [address] Phone: tel: fax: [facility] DI[facility]STIC [facility]OLOGY [address] [place] [address] [place] [address] Phone: tel: Referral IDStatusReasonStart DateExpiration DateVisits RequestedVisits [id number] [facility] Narrative* Auth/Cert (Routine)SpecialtyDiagnoses / ProceduresReferred By ContactReferred To ContactAmbulatory Surgery Diagnoses Caries Caries [K02.9] Procedures UNLISTED PROCEDURE, DENTOALVEOLAR STRUCTURES ANESTHESIA, INTRAORAL PROC, W/BX; NOS DENTAL RESTORATIONS Ap Scott, DDS [address] [place] [address] Phone: tel: fax: THE [employer] [address] [place] [address] Phone: tel: Referral IDStatusReasonStart DateExpiration DateVisits RequestedVisits [id number] [facility]iek[facility] Summary Purpose Family History Relationship Condition Age at Onset Recorded Date/T bryan Not Specified Family history unknown Unknown Advance Directives Advance Directive Response Recorded Date/ Time Advance Directives No March 4:51pm Advance Directive Response Recorded Date/ Time Advance Directives Yes July 05, 024 10:35am Advance Directive Response Recorded Date/ Time [...] 19, 2024 10:36am Generalized convulsive epilepsy Septembe 2024 10:36am 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, 2024 10:36am Severe intellectual disability December 19, 2024 10:36am Spastic hemiplegia affecting dominant si de December 19, 2024 10:36am Spastic hemiplegia affecting nondominant side December 19, 2024 10:36am COPD (chronic obstructive pulmonary dise ase) January 16, 2025 10:26am Severe intellectual disability January 16, 2025 10:26am Additional Source Comments Care Team (unrecognized sect ion and content) Team MemberRelationshipSpecialtyStart DateEnd Date Abundio Mares, [facility] [address] [place] [address] KyzcrfvhYwvrgfzbk37/6/20Team MemberRelationshipSpecialtyStart DateEnd Date Abundio Mares [facility] [address] [place] [address] LatjmrowGxgblouja30/6/20 Team Status: Active Member Role Status Dates Fam Acevedo DO Primary Care Provider Active Team Status: Inactive Member Role Status Dates Fam Acevedo DO Primary Care Provider Active Start: July 06, 2023 End: July 06, 2023HeJEOVANY De La CruzBCAttending ProviderActiveStart: July 06, 2023 End: July 06, 2023Team MemberRelationshipSpecialtyStart DateEnd Date Abundio Mares, [facility] [address] [place], [place] [id number] VzxqffvtAlnsqwkoo94/6/20 Team Status: Inactive Member Role Status Dates Fam Acevedo DO Primary Care Provider Active Start: January 11, 2024 End: January 11, 2024HeJEOVANY De La Cruz-BCAttending ProviderActiveStart: January 11, 2024 End: January 11, 2024Flat RocksActiveStart: January 11, 2024 End: January 11, 2024Team MemberRelationshipSpecialtyStart DateEnd Date Philipplocated, Faye Fermin MD [address] [place], [place] [id number] PCP - General09/23/22 Fam Acevedo MD [address] [place] [address] Referring PhysicianOrthopaedic Surgery09/23/22Team MemberRelationshipSpecialty Start DateEnd Date Unallocated, Timothys MD Zander [address] [place] [address] PCP - General09/23/22 Fam Acevedo MD [address] [place] [address] Referring PhysicianOrthopaedic Surgery09/23/22Team MemberRelationshipSpecialty Start DateEnd Date Abundio Mares [facility] [address] [place] [address] VlpogeseEdyarazjw50/6/20Team MemberRelationshipSpecialtyStart DateEnd Date Abundio Mares[address] [address] JtjevssuQrpnsttlh16/6/20Team MemberRelationshipSpecialtyStart DateEnd Date Unallocated, Faye Fermin MD [address] [place] [address] [facility] - General09/23/22 Fam Acevedo MD [address] [place], [place] [phone] Referring PhysicianOrthva hospitaledic Surgery09/23/22 Team Status: Inactive Member Role Status Dates Fam Acevedo DO Primary Care Provider Active Start: July 11, 2024 End: July 11, 2024Heradha Castaneda APRN ACNP-BCAttending ProviderActiveStart: July 11, 2024 End: July 11, 2024Team MemberRelationshipSpecialtyStart DateEnd Date Abundio Mares [address] [address] UjqivmdeEsozctmed44/6/20Team MemberRelationshipSpecialtyStart DateEnd Date Abundio Mares [address] [address] FsgacrecVbzdokhrs74/6/20Team MemberRelationshipSpecialtyStart DateEnd Date Abundio Mares [address] [address] YxmjprszDnogjondw01/6/20Team MemberRelationshipSpecialtyStart DateEnd Date Abundio Mares [address] [address] DkqwahsfEjxqplkeh02/6/20Team MemberRelationshipSpecialtyStart DateEnd Date Abundio Mares [address] [address] YtgoflebEnfnmzxve53/6/20Team MemberRelationshipSpecialtyStart DateEnd Date Abundio Mares [address] [address] DwvzdlqaQcdtlekyc63/6/20 Team Status: Inactive Member Role Status Dates Fam Acevedo DO Primary Care Provider Active Start: December 19, 2024 End: December 19Karla Levine ProviderActiveStart: December 19, 2024 End: December 19, 2024 Team Status: Inactive Member Role Status Dates Fam Acevedo DO Primary Care Provider Active Start: January 16, 2025 End: January 16, 2025Heradha Castaneda APRN ACNP-BCAttending ProviderActiveStart: January 16, 2025 End: January 16, 2025 REASON FOR VISIT (unrecogniz ed section and content) ReasonCommentsSeizuresReasonCommentsPre-surgical EvaluationReasonOnset Date LlipfiimMUW70/17/2025Informed Consent & Anesthesia consent obtained (unrecognized sect ion and content) No Status Records FoundNo Status Records FoundNo Status Records FoundNo Status Records Found INFORMATION SOURCE (unrecogn ized section and content) DATE CREATED AUTHOR 08/05/[address] [facility] DATE CREATED AUTHOR AUTHOR'S ORGANIZ ATION 01/26/2023 [facility] DATE CREATED AUTHOR AUTHOR'S ORGANIZ ATION 06/02/2024 [facility] DATE CREATED AUTHOR AUTHOR'S ORGANIZ ATION 12/18/2024 [employer] Goals (unrecognized section and content) Goals may be documented in a n alternate section Scheduled Active and Recently Administ ered Medications (unrecognized section and content) Medication Order// midazolam (VERSED) 2 MG/ML oral syrup 31.6 mg (rounded from 31.55 mg = 0.5 mg/kg 63.1 kg), Oral, ONCE, 1 dose, On Wed06/12/24 at 0800, Pre-op * 0724 (Hold/Not Given - Provider: Quan Anna - Reason: Patient refused) Medication Order// acetaminophen (TYLENOL) tablet 650 mg, Oral, PACU [...] on Wed06/12/24 at 0652, Until Wed06/12/24 at 1045,post operative nausea or vomiting, PACU Now bacitracin 500 UNIT/GM ointment (CANCELED) PRN, Starting on Wed06/12/24 at 0815, Until Wed06/12/24 at 0828, Intra-op * 0815 (Given - Provider: Beatris Thompson DDS - Comment: applied to [...] BE BASED ON THE PRIMARY CLINICAL RECORDS. [facility]. provides no warranty or guarantee of the accuracy or completeness of information in this document.
[2025-03-01 13:38] LABS: Ammonia 40 umol/L (11-32)
== END 2025-03-01 13:05 | disposition home or self-care (01) ==
LOC: LAB 13:05
PROVIDERS: PCP Family Medicine; Visit Provider Family Medicine
DX: K76.82 Hepatic encephalopathy (principal); Z79.899 Other long term (current) drug therapy; G40.909 Epilepsy, unspecified, not intractable, without status epilepticus
CPT/HCPCS: 36415; 82140

== ENCOUNTER 2025-04-04 10:14 | Outpatient (OUT) | payer MEDICARE, MEDICAID, SELFPAY ==
[2025-04-04 10:46] LABS: Ammonia 36 umol/L (11-32)
== END 2025-04-04 10:15 | disposition home or self-care (01) ==
LOC: LAB 10:14
PROVIDERS: PCP Family Medicine; Visit Provider Family Medicine
DX: K76.82 Hepatic encephalopathy (principal); Z79.891 Long term (current) use of opiate analgesic
CPT/HCPCS: 36415; 82140

== ENCOUNTER 2025-04-16 18:14 | Emergency (ER) | payer MEDICARE, MEDICAID, SELFPAY ==
[2025-04-16] VITALS (15 sets, daily range): BP systolic 120–148; BP diastolic 74–96; PULSE 69–85; TEMP 36.2; O2SAT 95–96; BMI 23.8
--- NOTE | 2025-04-16 18:25 | ECG_ITS ---
The [facility] Test Date: 2025-04-16 Pat Name: FRANCOIS LOPEZ Department: Room: - Gender: Male [employer]: : 1980 Requested By: 1030 Order Number: [id number] Reading MD: PO TORRES M.D. Measurements Intervals Walker Rate: 80 P: 36 OH: 140 QRS: 34 QRSD: 82 T: 14 QT: 342 QTc: 378 Interpretive Statements 1100 Sinus rhythm 4068 Nonspecific Twave abnormality 9130 borderline ECG Compared to ECG 11/03/2024 06:58:13 No significant changes Electronically Signed On 04-16-2025 20:25:29 EST by PO TORRES M.D.
--- NOTE | 2025-04-16 18:25 | XR_ITS ---
The [address] [address] Patient Name: FRANCOIS LOPEZ MRN: [id number] date: 1980 Sex: M Assigned Patient Location: ER Current Patient Location: ER Accession/Order Number: [id number] Exam Date: 04/16/2025 19:15 Report Date: 04/16/2025 19:31 At the request of: LALI COOK MD Procedure: XR chest 1V XR chest 1V 04/16/2025 7:19 PM SIGNS AND SYMPTOMS: ^Altered mental status ^Y PROTOCOL: Frontal radiograph of the chest COMPARISON: 05/11/2023 FINDINGS: The trachea is midline. There is a stimulator generator over the left anterior chest wall with the lead extending into the lower neck. The heart and mediastinal structures are within normal limits. Mild perihilar and left basilar airspace opacities are noted which may be infectious in nature. The bony thorax is intact. XR/XR chest 1V IMPRESSION: Mild perihilar and left basilar airspace opacities are noted which may be infectious in nature. Impression dictated by: Rocco Denson M.D. 04/16/2025 7:31 PM Dictation Location: [place] [address] Electronically authenticated by: [id number] Y Date: 04/16/2025 19:31
--- NOTE | 2025-04-16 18:33 | ED.GENADUL1 ---
HPI HPI - General Adult General Chief complaint: Seizure Stated complaint: headache Time Seen by Provider: 04/16/25 18:25 Mode of arrival: walk-in History of Present Illness HPI narrative: 45-year-old male presented by paramedics for not acting himself. The patient is unable to provide any history. Paramedics reported that he has had a slow decline over the past 5 or 6 days and his level of activity. No further history is obtainable. We do not have any specific symptoms regarding this patient's. Related Data Home Medications ?Medication ?Instructions ?Recorded ?Confirmed acetaminophen 325 mg capsule 650 mg PO Q4H PRN fever or pain 10/27/22 11/03/24 acetaminophen 650 mg rectal [address] Q4H PRN fever 10/27/22 11/03/24 suppository alendronate 70 mg tablet 70 mg PO .COMPLEX 10/27/22 05/11/23 atorvastatin 10 mg tablet 10 mg PO QPM 10/27/22 11/03/24 budesonide 0.5 mg/2 mL suspension 0.5 mg inhalation BID 10/27/22 11/03/24 for nebulization cholecalciferol (vitamin D3) 125 125 mcg PO DAILY 10/27/22 11/03/24 mcg (5,000 unit) capsule clobazam 10 mg tablet 10 mg PO BID 10/27/22 11/03/24 clonazepam 0.25 mg disintegrating 0.25 mg translingual Q12H PRN as 10/27/22 11/03/24 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 diazepam 5 mg-7.5 mg-[address] .COMPLEX PRN if 3 or more 10/27/22 11/03/24 kit seizures in 2hrs docusate sodium 100 mg tablet (DOK) 200 mg PO DAILY 10/27/22 11/03/24 felbamate 400 mg tablet 400 mg PO TID 10/27/22 11/03/24 fenofibrate nanocrystallized 145 145 mg PO DAILY 10/27/22 11/03/24 mg tablet furosemide 20 mg tablet 20 mg PO DAILY 10/27/22 11/03/24 glycopyrrolate 1 mg tablet 1 mg PO BID 10/27/22 11/03/24 guaifenesin 400 mg tablet (Chest 400 mg PO BID 10/27/22 11/03/24 Congestion Relief) ipratropium 0.5 mg-albuterol 3 mg 3 ml inhalation TID 10/27/22 11/03/24 (2.5 mg base)/3 mL nebulization soln lactulose 10 gram/15 mL oral 60 g PO BID 10/27/22 11/03/24 solution levetiracetam 750 mg tablet 1,500 mg PO .MORNING 10/27/22 11/03/24 levothyroxine 150 mcg tablet 150 mcg PO DAILY 10/27/22 11/03/24 linaclotide 145 mcg capsule 145 mcg PO DAILY 10/27/22 11/03/24 (Linzess) loratadine 10 mg tablet 10 mg PO DAILY 10/27/22 11/03/24 magnesium oxide 400 mg (241.3 mg 400 mg PO DAILY 10/27/22 11/03/24 magnesium) tablet montelukast 10 mg tablet 10 mg PO QPM 10/27/22 11/03/24 omeprazole 40 mg capsule,delayed 40 mg PO DAILY 10/27/22 11/03/24 release oxcarbazepine 300 mg tablet 300 mg PO BID 10/27/22 11/03/24 oxcarbazepine 600 mg tablet 600 mg PO BID 10/27/22 11/03/24 polyethylene glycol 3350 17 17 g PO DAILY 10/27/22 11/03/24 gram/dose oral powder rifaximin 550 mg tablet (Xifaxan) 550 mg PO BID 10/27/22 11/03/24 sodium chloride-aloe vera nasal 2 spray intranasal TID dry nasal 10/27/22 11/03/24 spray (Crawford Saline Gel nasal spray) passages tamsulosin 0.4 mg capsule 0.4 mg PO DAILY 10/27/22 11/03/24 albuterol sulfate 2.5 mg/3 mL 2.5 mg inhalation Q6H PRN 02/11/23 11/03/24 (0.083 %) solution for nebulization shortness of breath artificial tears with lanolin eye 1 applic ophthalmic (eye) TID PRN 02/11/23 11/03/24 ointment (Ultra Fresh PM eye dry eye(s) ointment) erythromycin 5 mg/gram (0.5 %) eye 1 applic ophthalmic (eye) TID PRN 02/11/23 11/03/24 ointment eye irritation sennosides 8.6 mg capsule (senna) 17.2 mg PO BID PRN constipation 02/11/23 11/03/24 fluticasone propionate 50 2 spray intranasal DAILY 05/11/23 11/03/24 mcg/actuation nasal spray,suspension (24 Hour Allergy Relief) hydrocortisone 2.5 % topical cream 1 applic topical BID PRN FLARES 05/11/23 11/03/24 bisacodyl 10 mg rectal suppository [address] TID PRN constipation 11/03/24 11/03/24 denosumab 60 mg/mL subcutaneous 60 mg subcut .EVERY 6 MONTHS 11/03/24 11/03/24 syringe (Prolia) ketoconazole 2 % shampoo 1 applic topical DAILY PRN skin 11/03/24 11/03/24 irritation levetiracetam 500 mg tablet 2,000 mg PO BEDTIME 11/03/24 11/03/24 (Keppra) Allergies Allergy/AdvReac Type Severity Reaction Status Date / Time amoxicillin (From Augmentin) Allergy Unknown Verified 11/03/24 06:45 clavulanic acid (From Allergy Unknown Verified 11/03/24 06:45 Augmentin) Pertussis Vaccines Allergy Unknown Verified 11/03/24 06:45 phenytoin (From Dilantin) Allergy Unknown Verified 11/03/24 06:45 promethazine (From Phenergan) Allergy Unknown Verified 11/03/24 06:45 Opioid HPI Opioid Management Most Recent Opioid Data: Last Pain Scale 0 02/13/23, 14:02 Review of Systems ROS Narrative Not obtainable [facility] Medical History (Updated 04/16/25 @ 18:36 by Moreno Ackerman MD) Seizure disorder ?G40.909 - Epilepsy, unspecified, not intractable, without status epilepticus (ICD-10) Hepatic encephalopathy ?K76.82 - Hepatic encephalopathy (ICD-10) COPD (chronic obstructive pulmonary disease) ?J44.9 - Chronic obstructive pulmonary disease, unspecified (ICD-10) Intellectual disability ?F79 - Unspecified intellectual disabilities (ICD-10) 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) Pneumonia ?J18.9 - Pneumonia, unspecified organism (ICD-10) Fever ?R50.9 - Fever, unspecified (ICD-10) Fall ?W19.XXXA - Unspecified fall, initial encounter (ICD-10) GERD (gastroesophageal reflux disease) ?K21.9 - Gastro-esophageal reflux disease without esophagitis (ICD-10) Hyperlipidemia ?E78.5 - Hyperlipidemia, unspecified (ICD-10) BPH (benign prostatic hyperplasia) ?N40.0 - Benign prostatic hyperplasia without lower urinary tract symptoms (ICD-10) Small intestinal bacterial overgrowth ?K63.8219 - Small intestinal bacterial overgrowth, unspecified (ICD-10) 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 - Quadriplegia, unspecified (ICD-10) Excessive salivation ?K11.7 - Disturbances of salivary secretion (ICD-10) Osteoporosis ?M81.0 - Age-related osteoporosis without current pathological fracture (ICD-10) ADHD ?F90.9 - Attention-deficit hyperactivity disorder, unspecified type (ICD-10) Hypothyroidism ?E03.9 - Hypothyroidism, unspecified (ICD-10) 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 Smoking status: Never smoker Second hand tobacco smoke exposure: No Non-prescribed substance use: denies use Previous occupational history: disable Known occupational exposures/hazards: No Highest level of school completed/degree received: never attended/kindergarten only Do you want help with school or training: No Are you now , , , , never or living with a partner: don't know Life stressors: unknown source of stress Due to disability, difficulty making decisions: No Do you think of yourself as: don't know Gender Identity: other Gender Identity Comment: unable to communicate Exam Narrative Exam Narrative: Nurses note and vital signs reviewed General:The patient appears well and in no apparent distress. Patient is resting comfortably on cart. Skin:Warm, dry, no pallor noted. There is no rash noted. Head:Normocephalic, atraumatic Eye: Normal conjunctiva, no drainage Ears, Nose, Mouth, and Throat: oral mucosa is moist. Nares patent. Cardiovascular:Regular Rate and Rhythm Respiratory:Patient is in no distress, no accessory muscle use, lungs are clear to auscultation, no wheezing, rales or rhonchi Back:non-tender GI: Soft and nontender Musculoskeletal: No palpable tenderness to all 4 extremities Neurological: Awake and alert. Moves all 4 extremities. Says a few words which are difficult to understand. Psychiatric: Not uncooperative Constitutional Vital Signs, click to edit/add: Last Vital Signs Temp 97.1 F L 04/16/25 18:16 Pulse 85 04/16/25 18:16 Resp 14 04/16/25 18:16 BP 148/96 H 04/16/25 18:16 Pulse Ox 95 04/16/25 18:16 O2 Del Method Room Air 04/16/25 18:16 Course Vital Signs Vital signs: Vital Signs Temperature 97.1 F L 04/16/25 18:16 Pulse Rate 85 04/16/25 18:16 Respiratory Rate 14 04/16/25 18:16 Blood Pressure 148/96 H 04/16/25 18:16 Pulse Oximetry 95 04/16/25 18:16 Oxygen Delivery Method Room Air 04/16/25 18:16 Temperature 97.1 F L 04/16/25 18:16 Pulse Rate 85 04/16/25 18:16 Respiratory Rate 14 04/16/25 18:16 Blood Pressure 148/96 H 04/16/25 18:16 Pulse Oximetry 95 04/16/25 18:16 Oxygen Delivery Method Room Air 04/16/25 18:16 Medical Decision Making [facility] Narrative Medical decision making narrative: Tests are ordered and the patient is signed out to Dr. Briggs at change of shift. Differential Diagnosis Differential Diagnosis: UTI, pneumonia, medication side effect Discharge Plan Discharge Patient Disposition: Still a Patient
--- NOTE | 2025-04-16 18:45 | PC.NURSE ---
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
--- OUTSIDE RECORDS SUMMARY | 2025-04-16 18:47 | XMS_ITS | Clinical Summary ---
Author Organization [facility] Address [address] [facility] [address] [place] [address] Care Team Providers Care Lithograph Printer Name Role Phone Abundio Mares DDS Unavailable [phone] Source Comments The following information is NOT included in Care Everywhere downloads:Psychiatric notes, ECG results, Cardiac Rehab notes, Pulmonary Function notes, data from [employer]ations (includes but not limited toPregnancy data,audiograms, eye exams, pre-surgical evaluation notes, well-child exam data).[facility] Allergies Active AllergyReactionsCriticalityNoted DateCommentsAmoxicillin-Pot Clavulanate 05/12/2016 Unknown reaction Pertussis Vsvilice23/14/2025Phenytoin Sodium Nyjeehjh49/24/2017 Unknown reaction IfvroqthuaikZpfx57/24/2017 Unknown reaction Medications MedicationSigDispense QuantityRefillsLast FilledStart DateEnd [...] and 8pmActive Active Problems ProblemNoted DateDiagnosed DateMental topgpyvmwt03/05/2020 Overview (02/22/2020): Added automatically from request for surgery [id number] Resolved Problems ProblemNoted DateDiagnosed DateResolved PkrqDlwnqu77/10/202402/ Immunizations ImmunizationAdministration DatesNext DueInfluenza, injectable, quadrivalent, preservative (APA=617)02/10/2017Influenza, injectable, quadrivalent, preservative free (CDJ=647)01/26/2018,02/07/2015Influenza, injectable, trivalent, preservative (SWD=798)12/31/2010Influenza, novel C6A1-79, injectable, preservative-free (VSW=201)03/06/2009Influenza, whole virus (CVX=16)02/09/2008 Pneumococcal conjugate 13 valent (PCV13) (HMR=883)03/04/2020Pneumococcal polysaccharide 23 Valent (PPSV23) (CVX=33)10/23/2014 Social History Tobacco UseTypesPacks/DayYears UsedDateSmoking Tobacco: Never AssessedSex and Gender InformationValueDate RecordedSex Assigned at BirthNot on fileLegal Sex Male02/21/2012 8:16 AM ESTGender IdentityNot on fileSexual OrientationNot on file Last Filed Vital Signs Vital SignReadingTime TakenCommentsBlood Siqnoevp257/8402 8:27 AM EST Emffb973906/12/2024 8:27 AM FBCMqsmrhdawbr31.9 ??C (98.4 ??F)06/12/2024 8:27 AM ESTRespiratory Kxro266806/12/2024 8:27 AM ESTOxygen Rcuejjgdlm78%06/12/2024 8:27 AM ESTInhaled Oxygen Concentration--Jwbwip98 kg (139 lb)06/12/2024 7:02 AM EST Height--Body Mass Index-- Plan of Treatment Health MaintenanceDue DateLast FgtyQcolxdspPssokiceofi1980Prostate Cancer Screening (shared decision making)1980HIV Test02/01/1995Hepatitis C Pgjfembc48/16/1998Tdap Znkeyov6902/01/1998Hepatitis A (HAV) Vaccine (optional start 19+ years)02/01/1999Hepatitis B (HBV) Vaccine (1 of 3 - 19+ 3-dose series) 02/01/1999HPV Vaccine (optional start 27-45 years)02/01/2007Welcome to Medicare Visit (G0402)05/30/2024Dental Oral ExamDental Prophylaxis OVID-19 Vaccine ( - 2024- season)2024Influenza Vaccine (#1)/01/2018, 02/10/2017, 02/07/2015, Additional history [facility] Apjqzkptd83/16/2025Cologuard (Stool DNA)02/01/2025FIT02/01/2025TSH Dental X-Ray: Vxqvhkehe12holesterol Shingles (RZV) Vaccine (1 of 2)02/01/2030Pneumococcal Vaccine(s)Aged Out03/04/2020, 10/23/2014No longer eligible based on patient's age to complete this topic Procedures Procedure NamePriorityDate/TimeAssociated DiagnosisCommentsPROPHY ADULT 14 & WLFZYQapfizn92/24/2025 12:00 AM ESTCOMPREHENSIVE ZPGPGrcpmmm63/24/2025 12:00 AM GWRXKNZeiktmv57/14/2025 3:03 PM EST Pre-op evaluation Hypothyroidism, unspecified type from Last 3 Months or Most Recently Relevant to Health Maintenance Results * (ABNORMAL) TSH (06/02/2024 3:03 PM EST)ComponentValueRef RangeTest Method Analysis TimePerformed AtPathologist SignatureTSH0.229(L)0.450 - 5.330 uIU/mL 06/02/2024 4:36 PM ESTS PATHOLOGY LABORATORYSpecimen (Source)Anatomical Location / LateralityCollection Method / VolumeCollection TimeReceived Time BloodBLOOD SPECIMEN / UnknownVenipuncture / Rkerybu9006/02/2024 3:03 PM EST 06/02/2024 3:57 PM EST Narrative Authorizing ProviderResult TypeResult StatusEmpravin Johnson MD98 GENERAL LAB Final ResultPerforming OrganizationAddressCity/State/ZIP CodePhone Number [facility] [address] [place] [address] from Last 3 Months or Most Recently Relevant to Health Maintenance Insurance [address] [place] [address] Care Teams Team MemberRelationshipSpecialtyStart DateEnd Date Abundio Mares, KETAN [address] [place] [address] CebkrwkhKvwynvxkp90/6/20
--- OUTSIDE RECORDS SUMMARY | 2025-04-16 18:47 | XMS_ITS | Clinical Summary ---
Author Organization [facility] Address [address], [address] [place] [address] Care Team Providers Care Director Of Student Services Name Role Phone Unavailable Primary Care Provider Unavailabl e Allergies Active AllergyReactionsCriticalityNoted DateCommentsAmoxicillin-Pot Clavulanate 05/12/2016 Unknown reaction Phenytoin Sodium Enaeleec38/24/2017 Unknown reaction Promethazine ZzlVqes4505/12/2016 Unknown reaction Medications MedicationSigDispense QuantityRefillsLast FilledStart DateEnd [...] Last Filed Vital Signs Vital SignReadingTime TakenCommentsBlood Fgotpdcg222/6801 12:23 PM EST Ltyph3827 12:23 PM XZPQvubfaoqaqs86.4 ??C (97.6 ??F)05/12/2016 11:26 AM ESTRespiratory Bjec889205/12/2016 12:23 PM ESTOxygen Msvmbxgqsk50%05/12/2016 12:23 PM ESTInhaled Oxygen Concentration--Auynrz62.5 kg (146 lb 8 oz)05/12/2016 9:29 AM PDBUgegti456.5 cm (5' 2 )05/12/2016 9:29 AM ESTBody Mass Index26. 9:29 AM EST Plan of Treatment Not on file Medical Devices ImplantedTypeAreaManufacturerDevice IdentifierShelf Expiration DateModel / Serial / LotGenerator Aspire Sr - [id number] Implanted:Qty: 1 on 05/12/2016 by Beni Martin MD at [facility]/[employer] [facility]-[id number] / [id number] / [place] [id number]
--- OUTSIDE RECORDS SUMMARY | 2025-04-16 18:47 | XMS_ITS | Clinical Summary ---
Author Organization [facility] tem Address [id number] [place] [address] Care Team Providers Care Test Technician Name Role Phone Andreia Kiser Primary Care Provider [phone] Allergies Active AllergyReactionsCriticalityNoted DateCommentsAmoxicillin-Pot Clavulanate 05/12/2016 Unknown reaction Unknown reaction Phenytoin Sodium Pushkkxw33/24/2017 Unknown reaction Unknown reaction WcczpyddetejIsem83/24/2017 Unknown reaction Unknown reaction Medications MedicationSigDispense QuantityRefillsLast [...] on tongue 2 (two) times a day.Active ezebvayw-kyya-AV-calcium &mins (THERAGRAN-M) 9 mg iron-400 mcg tablet [...] standard drink = 0.6 oz pure alcohol)ChildcareAnswerDate RunfvgtwZiegblzqqAgxikeb50/11/2019Employment AnswerDate UarhkxmpWdjlwwokidDjaixmj15/11/2019Sex and Gender InformationValue Date RecordedSex Assigned at BirthNot on fileLegal BuxWika4611/20/2014 7:50 PM EDT Gender IdentityNot on fileSexual OrientationNot on file Last Filed Vital Signs Vital SignReadingTime TakenCommentsBlood Yybtwhhe060/7008 1:21 PM EDT Khajd767811/21/2021 1:21 PM JWJEssovhnwlke09.3 ??C (97.3 ??F)11/04/2021 4:25 PM EDTRespiratory Errt452011/04/2021 5:15 PM EDTOxygen Iksvdmvcno11%11/04/2021 5:15 PM EDTInhaled Oxygen Concentration--Uyresx31.1 kg (137 lb)10/31/2021 1:02 PM EDT Height--Body Mass Index-- Plan of Treatment Health MaintenanceDue DateLast DoneCommentsDepression Gaifaubun58/16/1992Tobacco Upzvysjph50/16/1992Adult BMI Ittknvfwb41/16/1998DTaP,Tdap and Td Vaccines (1 - Tdap)02/01/1999Influenza Qndavxm01/01/2018, 02/10/2017, 02/07/2015, Additional history exists Medical Devices ImplantedTypeAreaManufacturerDevice IdentifierShelf Expiration DateModel / Serial / LotVns Therapy Aspiresr Implanted:Qty: 1 on 09/09/2021 [facility] [id number] / [id number] / Description:BAT[employer] EXCHANGE Insurance Advance Directives TypeDate RecordedPatient RepresentativeExplanationLiving Will09/09/2021 7:20 AM DNR Care Teams Team MemberRelationshipSpecialtyStart DateEnd Date Andreia Kiser DO [address] [place] [address] [phone] PCP - GeneralNeurology07/24/21
--- OUTSIDE RECORDS SUMMARY | 2025-04-16 18:47 | XMS_ITS | Clinical Summary ---
Author Organization [facility] Address [address] [place] [address] Care Team Providers Care Yarn Bleaching Machine Operator Name Role Phone Unavailable Primary Care Provider Unavailabl e Social History Tobacco UseTypesPacks/DayYears UsedDateSmoking Tobacco: Never AssessedSex and Gender InformationValueDate RecordedSex Assigned at BirthNot on fileLegal Sex Male06/07/2012 11:14 PM ESTGender IdentityNot on fileSexual OrientationNot on file Plan of Treatment Health MaintenanceDue DateLast DoneCommentsMMR Vaccine (1 of 1 - Standard series)02/01/1981DTaP/Tdap/Td Vaccine (1 - Tdap)02/01/1987Varicella Vaccine (1 of 2 - 13+ 2-dose series)02/01/1993Hepatitis B Vaccine (1 of 3 - 19+ 3-dose series)02/01/1999HPV Vaccine (1 - 3-dose SCDM series)02/01/2007COVID-19 Vaccine ( - season)2024Influenza Vaccine (#1)2024HIB VaccineAged OutNo longer eligible based on patient's age to complete this topicHepatitis A VaccineAged OutNo longer eligible based on patient's age to complete this topic IPV VaccineAged OutNo longer eligible based on patient's age to complete this topicMeningococcal ACWY VaccineAged OutNo longer eligible based on patient's age to complete this topicMeningococcal B VaccineAged OutNo longer eligible based on patient's age to complete this topicPneumococcal VaccineAged OutNo longer eligible based on patient's age to complete this topicRSV AntibodiesAged OutNo longer eligible based on patient's age to complete this topicRotavirus Vaccine Aged OutNo longer eligible based on patient's age to complete this topic Insurance
--- OUTSIDE RECORDS SUMMARY | 2025-04-16 18:47 | XMS_ITS | Clinical Summary ---
Author Organization [facility] Address [address] [place] [address] Care Team Providers Care Hooker Operator Name Role Phone Rosario Shaw MD Primary Care Provider Social History Tobacco UseTypesPacks/DayYears UsedDateSmoking Tobacco: Never AssessedSex and Gender InformationValueDate RecordedSex Assigned at BirthNot on fileLegal Sex Male03/20/2012 8:53 AM ESTGender IdentityNot on fileSexual OrientationNot on file Plan of Treatment Not on file Insurance * Guarantor: Parish Gallegos TypeRelation to PatientDate of BirthPhone Billing AddressPersonal/DevawaCybr[address] [address] Care Teams Team MemberRelationshipSpecialtyStart DateEnd Rosario Shaw MD [address] [place] [address] [facility] - General07/28/00
--- OUTSIDE RECORDS SUMMARY | 2025-04-16 18:47 | XMS_ITS | Clinical Summary ---
Author Organization [facility] Address [address] [place] [address] Care Team Providers Care Credit Card Associate Name Role Phone Fam Acevedo MD Unavailable Unallocated, [facility] Provider MD Primary Care Provi scotty Allergies Active AllergyReactionsCriticalityNoted ThbyIauthenbXbgmzteclgyWskgrpy43/06/2024 Amoxicillin-Pot OijxqidbwqfPqjgpri30/24/2017 Unknown reaction Unknown reaction Unknown reaction Clavulanic FnmmNhczybd42/08/4990RckliaqogBpchnip82/06/2024Phenytoin Sodium AuxrrrznJefuzlf86/24/2017 Unknown reaction Unknown reaction Unknown reaction JtirtnypimlcTqjzuezUofv62/24/2017 Unknown reaction Unknown reaction Unknown reaction Medications [...] hemiplegia affecting dominant side 08/23/2023Spastic hemiplegia, nondominant side08/23/20238493Dnnvlyr28/06/2024 Secondary glomerular woijwqy4508/23/2023Seizure /06/2024Epilepsy 08/23/2023Severe intellectual yoqoxgwjaphu88/06/2024 Family History Medical HistoryRelationNameCommentsCancerOtherFamily historyHypertensionOther Family historyStrokeOtherFamily historyRelationNameStatusCommentsFatherAlive MotherAliveOtherFamily history Social History Tobacco UseTypesPacks/DayYears UsedDateSmoking Tobacco: Never Tobacco Cessation:Counseling Given: Not Answered Alcohol UseStandard Drinks/WeekCommentsNot Currently0 (1 standard drink = 0.6 oz pure alcohol)Sex and Gender InformationValueDate RecordedSex Assigned at Not on fileLegal OuiHwig7007/01/2022 6:58 PM EDTGender IdentityNot on fileSexual OrientationNot on file Last Filed Vital Signs Vital SignReadingTime TakenCommentsBlood Xqfrgoqv659/6402/03/2025 1:05 PM EST Mjotx6765/ 11:34 AM ESTTemperature--Respiratory Igjo2573 1:19 PM EDTOxygen Aofzhqrnnx84%03/07/2024 11:34 AM ESTInhaled Oxygen Concentration-- Gjvoiv39.6 kg (135 lb 12.8 oz)08/25/2023 1:19 PM PQCMoksfp247.5 cm (5' 2 ) 08/25/2023 1:19 PM EDTBody Mass Index24.8408/25/2023 1:19 PM EDT Plan of Treatment Health MaintenanceDue DateLast DoneCommentsCT Ctywezsedsft1980Colonoscopy 1980Colorectal Cancer Wbjgcbiuj1980FIT-DNA1980FIT1980 FOBT1980Medicare Annual Wellness (AWV)1980 5555Qoslgimbvajkv1980 Influenza Vaccine (#1), 02/10/2017, 02/07/2015, Additional history existsPneumococcal Vaccine: Pediatrics (0 to 5 Years) and At-Risk Patients (6 to 64 Years)Aged OutNo longer eligible based on patient's age to complete this topic Insurance Care Teams Team MemberRelationshipSpecialtyStart DateEnd Date Unallocated, [facility] Provider, [address] [place] [address] PCP - General09/23/22 Fam Acevedo MD [address] [place] [address] [address] [place], [place] [id number] Referring PhysicianOrthopaedic Surgery09/23/22
--- OUTSIDE RECORDS SUMMARY | 2025-04-16 18:49 | XMS_ITS | CCD ---
Author Organization [facility] CliniSyhi Care Team Providers Care House Designer Name Role Phone FAM ACEVEDO Primary Care [...] Mares DDS Unavailable Fam Acevedo MD Unavailable [phone] Unallocated , [place] Provider Primary Care Provi [...] AP Attending Unavailable PROVIDER, UNKNOWN Admitting Unavailable BODY HARRY Referring Unavailable PROVIDER, UNKNOWN Attending Unavailable AL-MASHNI, AP Admitting Unavailable AL-MASHNI, AP Attending Unavailable Fam Acevedo DO Primary Care Provider Marissa Gonzalez APRN Attending Provider Antionette Castaneda APRN Attending Provider Allergies Allergy ClassificationReported Allergen(s)Allergy TypeDate of OnsetReaction(s) Facility (8 sources)Amoxicillin / Clavulanate; Translations: [amoxicillin-clavulanate] Drug AllergyUnknownExec[facility] ([facility] sources)Phenytoin; Translations: [phenytoin]Drug Btbhitr54-00-3276Aahtqot [facility] (20 sources)Promethazine; Translations: [promethazine]Drug Dfhzuwz70-01-9254 UnknownExec[facility] (19 sources)Phenytoin; Translations: [PHENYTOIN SODIUM EXTENDED]Drug Allergy 57-94-0786EhwbxklAanniNjhcfc (19 sources)Amoxicillin-Pot Clavulanate; Translations: [AMOXICILLIN-POT CLAVULANATE]Propensity to adverse reactions to nucu78-39-6349InuljkuIcppkIwfeyt (8 sources)4-Aminobenzoic Acid; Translations: [PERTUSSIS VACCINES]Drug Allergy 09-72-8554Ema [facility] (1 source)Amoxicillin / ClavulanateDrug Wxryixx96-31-9670Yqs [facility] (1 source)LevamisoleDrug Iztrney24-13-9742Fdr [facility] (1 source)metroNIDAZOLEDrug AllergyThe [facility] (1 source)PhenytoinDrug Lyhrjjz35-04-4391Ril [facility] (1 source)remdesivir (investigational use)Drug allergy (disorder)The [facility] (11 sources)AmoxicillinDrug Ctlewxr07-81-0966AxyrbfvNpznsohieMercy Memorial Hospital (7 sources)ClavulanateDrug Nkwpidj55-12-1058QqswqgoZpzjfaymjMercy Memorial Hospital Medications Current Medications MedicationDrug Class(es)DatesSig (Normalized)Sig (Original)albuterol 0.833 mg/ml / ipratropium bromide 0.167 mg/ml inhalation solution (14 sources)Anticholinergic, beta2-Adrenergic AgonistStart: 38-39-1253vtqj 1 mL by inhalation three times dailyIpratropium-Albuterol 0.5 mg-3 mg(2.5 mg base)/3 mL solution for nebulization Active 3 ML INHALATION Three times daily March 28, 2020 1:00am Complies with drug therapyStart: 80-29-7131fazn 3 mL by inhalation three times dailyIpratropium-Albuterol 0.5-2.5 (3) MG/3ML 3 ml Inhalation Three times a day Dec, ActiveAlbuterol Sulfate (2.5 MG/ 3 ML) 2.5 MG/3ML 0.083% Nebulization Solution (3 sources)Start: 50-22-1327Fxdiipupp Sulfate (2.5 MG/ 3 ML) 2.5 MG/3ML 0.083% Nebulization Solution 3ml Inhalation qid as needed Apr, Activealendronic acid 70 mg oral tablet (20 sources)BisphosphonateStart: 07-04-2015 End: 16-25-0285cajl 1 tablet by mouth every weekAlendronate 70 mg tablet Active 70 MG PO every week March 28, 2020 1:00am Complies with drug therapyStart: 28-71-6512spymjxxukds Tab 70 mg, Oral, Wednesday, Refills(s) 0, Other (see comment) Start Date: 07/04/15 Status:Orderedtake 1 tablet by mouth once daily alendronate (Fosamax) 70 MG tablet 1 tablet 30 minutes before the first food, beverage or medicine of the day with plain water Orally ActiveAllergy Relief (4 sources)Start: 16-56-2149hqnk 50 mg by mouth once dailyAllergy Relief 50 mg, Oral, Daily, Refills(s) 0, Allergy symptoms Start Date: 07/04/15 Status: Ordered Artificial Tears preserved ophthalmic solution (4 sources)Start: 09-45-2864Dojkoxrkqs Tears preserved ophthalmic solution Eye- Both, QID, Refill(s) 0 Start Date: 10/22/21 Status: OrderedAscorbic Acid (12 sources)Vitamin CStart: 67-61-2925Jkosuwb C Daily, Refills(s) 0 Start Date: 10/22/21 Status: OrderedStart: 03-28-2020 End: 48-03-1380gdjx 1 tablet by mouth twice dailyAscorbic Acid (Vitamin C) (Vitamin C) 500 mg Tablet Discontinued 500 MG PO Twice daily March 28, 2020 1:00am July 06, 2023 10:23amtake 1 tablet by mouth every twenty-four hours Vitamin C 500 MG 1 tablet Orally Once a day Activeatorvastatin 10 mg oral tablet (20 sources)HMG-CoA Reductase InhibitorStart: 72-65-3902vlrt 1 tablet by mouth once daily at bedtimeAtorvastatin 10 mg tablet Active 10 MG PO Daily at bedtime March 28, 2020 1:00am Complies withdrug therapyazelastine hydrochloride 0.137 mg/actuat metered dose nasal spray (10 sources)Histamine-1 Receptor AntagonistStart: 62-15-9474cdor 1 puff(s) nasal route twice dailyAzelastine 137 mcg (0.1 %) aerosol,spray Active 1 PUFF INTRANASAL Twice daily June 28, 2023 12:00am FreeTextSi puff in each nostril Nasally Twice a day; Note: Source Status: Taking; Provider: Leonel Adan ( ) Complies with drug therapyStart: 17-73-0854lcmqfgbapo nasal 137 mcg/inh spray 2 spray(s), Nasal, As Directed Allergy symptoms, Refill(s) 0, Allergy symptoms Start Date: 07/04/15 Status: Orderedtake 1 puff(s) nasal route twice dailyAzelastine HCl 137 MCG/SPRAY 1 puff in each nostril Nasally Twice a day Activeazelastine nasal 137 mcg/inh spray (2 sources)Start: 89-92-7831czcdisoyvv nasal 137 mcg/inh spray 2 spray(s), Nasal, As Directed Allergy symptoms, Refill(s) 0, Allergy symptoms Start Date: 07/04/15 Status: OrderedEnemeez Plus (4 sources)Standardized Chemical AllergenStart: 51-96-7572Kqqtpxl Plus 1 coleen, Rectal, Daily as needed for constipation, Refill(s) 0 Start Date: 07/05/15 Status : Orderedbenzonatate 100 mg oral capsule (8 sources)Non-narcotic AntitussiveStart: 55-79-8705ayim 1 capsule by mouth every eight hours as needed for coughBenzonatate 100 mg Capsule Active 100 MG PO Q8H as needed for Cough March 28, 2020 1:00am Complies with drug therapy take 1 capsule by mouth every eight hoursBenzonatate 100 MG 1 capsule as needed Orally Three times a day Activebudesonide 0.25 mg/ml inhalation suspension (20 sources)CorticosteroidStart: 15-43-3123utyy 0.5 mg by inhalation twice daily Budesonide (Pulmicort) 0.5 mg/2 mL suspension for nebulization Active 0.5 MG INHALATION Twice dailyMarch 2023 12:00am Complies with drug therapyStart: 47-92-5754jzfg 0.5 mg by inhalation twice dailybudesonide 0.5 mg/2 mL Inh Susp 0.5 mg = 2 mL, NEB, BID, # 120 mL, Refills(s) 0 Start Date: 12/16/22Status: Orderedtake 2 mL by inhalation twice dailyPulmicort 0.5 MG/2ML 2 ml Inhalation Twice a day Activecalcium carbonate 1250 mg / cholecalciferol 200 unt oral tablet (12 sources)Vitamin DStart: 28-74-5305lrgt 1 tablet by mouth twice dailyCalcium Carbonate-Vitamin [...] mg oral tablet (20 sources)BenzodiazepineStart: 07-04-2015 End: 90-41-0540tart 1 tablet by mouth twice dailyClobazam 10 mg tablet Active 10 MG PO Twice daily March 28, 2020 1:00am Complies with drug therapy clonazePAM 0.25 mg disintegrating oral tablet (14 sources)BenzodiazepineStart: 59-90-4657Xuhnttuhtr 0.25 mg Tablet,Disintegrating Active 0.25 MG TRANSLINGU Twice daily as needed for Cluster of 5 seizures March 28, 2020 1:00am Complies with drug therapy Start: 57-80-1535Iibiffkiia Active 0.25 MG TRANSLINGU Twice daily March 28, 2020 1:00amCough and Chest Congestion (4 sources)Start: 63-66-3819Kznwr and Chest Congestion Refill(s) 0 Start Date: 10/22/21 Status: Ordered1 ml denosumab 60 mg/ml prefilled syringe (6 sources)RANK Ligand Inhibitordenosumab (Prolia) 60 MG/ML injection Inject 60 mg under the skin. Every 6 months ActivediazePAM 10 mg oral tablet (20 sources)BenzodiazepineStart: 74-38-8454szis 1 mg rectal route onceDiastat AcuDial adult mg, Rectal, Once, Refills(s) 0 Start Date: 10/22/21 Status: Ordered Start: 03-28-2020 End: 77-24-6578uyok 1 tablet rectal route every two hours as neededDiazepam 10 mg tablet Active 5 MG PO Q2H as needed for 3 or more seizures July 06, 2023 10:24am 10MG RECTAL GEL, PATIENT TAKES IT CO - wont let me save without route. Complies with drug therapyStart: 03-28-2020 End: 48-75-8265pluqs 10 mg rectal route every two hoursDiazepam Active 5 MG PO Q2H July 06, 2023 10:24am 10MG RECTAL GEL, PATIENT TAKES IT CO - wont let me save without route.Start: 35-92-9375reemwqtu 10 mg, Rectal, PRN Seizure, Refills(s) 0 Start Date: 07/05/15 Status: OrdereddiazePAM (DIASTAT) 10 MG rectal gel Insert 1 Each in the rectum as needed for Other (for 3 or more seizures in 2 hours; may repeat in 2 hours as needed). Activedocusate sodium 100 mg oral capsule (20 sources)Start: 47-09-0425gmck 1 capsule by mouth twice daily as needed for constipationdocusate sodium 100 mg Cap 100 mg = 1 cap(s), Oral, BID, PRN for constipation, # 20 cap(s), Refills(s) 0 Start Date: 10/22/21 Status: OrderedStart: 26-06-0606dzrz 2 capsules by mouth once daily in the morningDocusate Sodium 100 mg Capsule Active 200 MG PO Every morning March 28, 2020 1:00am Complies wi th drug therapyStart: 85-98-0565wnxz 200 mg by mouth once daily in the morning Docusate Sodium Active 200 MG PO Every morning March 28, 2020 1:00amtake 1 capsule by mouth every twenty-four hoursDocusate Sodium 100 MG 1 capsule as needed Orally Once a day Activedoxycycline hyclate 100 mg oral capsule (4 sources)Tetracycline-class DrugStart: 13-13-7406gsou 1 mg by mouth twice dailydoxycycline hyclate 100 mg Cap mg cap(s), Oral, BID, Refills(s) 0 Start Date: 10/22/21 Status: OrderedErythromycin (4 sources)Macrolide, Macrolide AntimicrobialStart: 80-98-5452rwfyygqfvonu topical Rash, Refill(s) 0, tid to rash as needed Start Date: 07/05/15 Status: Orderedfelbamate 400 mg oral tablet (20 sources)Anti-epileptic AgentStart: 02-23-2020 End: 05-47-2820thxx 1 tablet by mouth three times dailyFelbamate 400 mg tablet Active 400 MG PO Three times daily March 28, 2020 1:00am Complies withdrug therapyfelbamate (Felbatol) 400 MG tablet 1 (one) time each day at the same time Activefenofibrate 145 mg oral tablet (16 sources)Peroxisome Proliferator Receptor alpha AgonistStart: 48-12-9014wafj 1 mg by mouth once dailyfenofibrate 145 mg Tab mg tab(s), Oral, Daily, Refills(s) 0 Start Date: 10/22/21 Status: Orderedfluticasone furoate 0.05 MG/ACTUAT Dry Powder Inhaler (20 sources)CorticosteroidStart: 89-21-1222dqrlohncnvb furoate 50 mcg inhalation powder Inhalation, q24hr, Refills(s) 0 Start Date: 10/22/21 Status: OrderedStart: 89-92-9707Oeepftaqveq Propionate 50 mcg/actuation spray,suspension Active 2 SPRAY INTRANASAL Daily March 28, 2020 1:00am Complies with drug therapy Start: 02-26-2020 End: 12-95-7112mzgrxapkxrt (FLONASE) 50 mcg/act nasal inhaler 02/26/2020 06/02/2024 [...] oral tablet (20 sources)Loop DiureticStart: 02-23-2020 End: 01-81-0520ckkk 1 tablet by mouth once dailyFurosemide 20 mg tablet Active 20 MG PO Daily March 28, 2020 1:00am Complies with drug therapy glycopyrrolate 1 mg oral tablet (20 sources)Start: 66-85-1391vglr 1 tablet by mouth three times daily glycopyrrolate 1 mg oral tablet mg tab(s), Oral, TID, Refills(s) 0 Start Date: 10/22/21 Status: OrderedStart: 61-44-5934apvd 1 tablet by mouth twice daily Glycopyrrolate 1 mg tablet Active 1 MG PO Twice daily March 28, 2020 1:00am Complies with drugtherapyguaiFENesin 400 mg oral tablet (6 sources)Start: 15-12-6320bangxwmjbke 400 mg oral tablet Refills(s) 0 Start Date: 12/16/22 Status: OrderedStart: 70-86-2498dcqb 1 tablet by mouth twice daily, then take 1 tablet by mouth every twelve hoursGuaifenesin (Mucinex) 600 mg Tablet Extended Release 12hr Active 600 MG PO Twice daily March 28, 2020 1:00am Complies with drug therapyhydrocortisone 25 mg/ml rectal cream (1 source)CorticosteroidStart: 31-83-9975xakeqcsijrznld 2.5% Rectal Crm w/Appl 1 coleen, Rectal, BID, 30 gram, Refill(s) 0 Start Date: 12/16/22 Status: Ordered Ipratropium (5 sources)AnticholinergicStart: 97-15-4769hsneszotmte mcg, QID Start Date: 12/16/22 Status: OrderedStart: 61-09-6466henb 1 ug by inhalation four times daily ipratropium 0.02% inhalation solution mcg mL, NEB, QID, Refills(s) 0 Start Date: 10/22/21 Status: OrderedStart: 53-52-5410mclk 1 ug by inhalation four times daily ipratropium 0.02% inhalation solution mcg mL, NEB, QID, Refills(s) 0 Start Date: 10/22/21 Status: Orderedketoconazole 20 mg/ml topical cream (9 sources)Azole AntifungalStart: 62-23-4154Lmhmyckbbfbz 2 % Cream Active 1 APPLIC TOPICAL Twice daily as needed for Groin Rash March 28, 2020 1:00am Complies with drug therapyStart: 86-02-9533Xxqbnvobjpnv Active 1 APPLIC TOPICAL Twice daily March 28, 2020 1:00amlactulose 667 mg/ml oral solution (20 sources)Osmotic LaxativeStart: 40-12-6920Buhhbaa 10 g/15 mL oral and rectal liquid gm mL, Refills(s) 0 Start Date: 10/22/21 Status: OrderedStart: 03-28-2020 take 1 mL by mouth four times dailyLactulose 10 gram/15 mL solution Active 60 ML PO Four times daily March 28, 2020 1:00am Complies with drug therapyStart: 02-19-2020 End: 38-20-8430xhyycnuoj 10 g/15 mL oral solution 02/19/2020 06/02/2024 Discontinued (Duplicate (*won't e-cancel))Start: 18-17-4024srsqjkjft 40 gram, Oral, QID, Refills(s) 0, Other (see comment) Start Date: 07/04/15 Status: Ordered Lactulose Encephalopathy (Enulose) 10 GM/15ML SOLN Take by mouth. 90 mL at 8am, 12pm and 8pm Activetake 15 mL by mouth once dailyLactulose 10 GM/15ML 15 ml Orally Once a day ActivelevETIRAcetam 750 mg oral tablet (20 sources)Start: 55-57-8780pyjw 2 tablets by mouth twice dailyLevetiracetam 750 mg tablet Active 1500 MG PO Twice daily March 28, 2020 1:00am Complies with drug therapyStart: 81-18-1603aklv 1500 mg by mouth twice dailyLevetiracetam Active 1500 MG PO Twice daily March 28, 2020 1:00amStart: 07-04-2015 End: 85-71-9041gwopecvkykbon (KEPPRA) 750 MG tablet 02/23/2020 06/02/2024 Discontinued [...] sodium 0.1 mg oral tablet (20 sources)l-ThyroxineStart: 41-58-6820Sjqlpnqffqqfe 100 mcg tablet Active 150 MCG PO Daily June 28, 2023 1:10pm Complies with drug therapyStart: 06-28-2023 take 150 ug by mouth once dailyLevothyroxine Active 150 MCG PO Daily June 28, 2023 1:10pmStart: 37-27-7102alzjezgwpbpii (Synthroid, Levoxyl) 150 MCG tablet 11/10/2022 ActiveStart: 02-23-2020 End: 87-67-2184uknc 1 tablet by mouth once daily at bedtimeLevothyroxine 100 mcg tablet Discontinued 100 MCG PO Daily at bedtime March 28, 2020 1:00am June 28, 2023 1:21pmStart: 02-23-2020 End: 15-38-2978nyza 1 tablet by mouth once daily at bedtimeLevothyroxine 50 mcg tablet Discontinued 50 MCG PO Daily at bedtime March 28, 2020 1:00am June 28, 2023 1:11pmStart: 68-83-8385gbqvaqqjsxgjs 150 microgram, Oral, Daily, Refills(s) 0, Thyroid Start Date: 07/04/15 Status: Orderedtake 1 tablet by mouth every twenty-four hoursLevothyroxine Sodium 150 MCG 1 tablet Orally Once a day Activelinaclotide 0.145 mg oral capsule (20 sources)Guanylate Cyclase-C AgonistStart: 51-80-3816Uxxacol 145 mcg oral capsule Start Date: 12/16/22 Status: OrderedStart: 02-23-2020 End: 15-87-9564yrmx 1 capsule by mouth once daily in the morningLinaclotide (Linzess) 145 mcg capsule Active 145 MCG PO Every morning March 28, 2020 1:00am Complies with drug therapyStart: 08-46-3444Khecqew 145 microgram, Oral, Daily, PRN Constipation, Refills(s) 0 Start Date: 07/05/15 Status: OrderedLinzess 145 145mcg 1 PO Every AM Activeloratadine 10 mg oral tablet (7 sources)Start: 29-68-9017gclnsoxhqh 10 mg Tab Start Date: 12/16/22 Status: Ogstppx51 hr loratadine 10 mg / pseudoephedrine sulfate 240 mg extended release oral tablet (13 sources)alpha-Adrenergic AgonistStart: 03-28-2020 End: 17-64-6761kvru 1 tablet by mouth once daily as needed, then take 1 tablet by mouth every twenty-four hours asneededLoratadine-Pseudoephedrine (Allergy Relief D-24hr) 10-240 mg tablet extended release 24 hr Active 1TAB PO Daily as needed June 28, 2023 12:00am Complies with drug therapymagnesium oxide 400 mg oral tablet (20 sources)Start: 19-54-6066hmqn 1 tablet by mouth once dailyMagnesium Oxide 400 mg magnesium Tablet Active 400 MG PO Daily March 28, 2020 1:00am Complies with drug therapytake 1 tablet by mouth once dailyMagnesium Oxide (MAG- OX 400 ORAL) Take 1 Tablet by mouth daily. Activemelatonin 5 mg oral tablet (9 sources)Start: 38-09-4970lnsn 1 tablet by mouth once daily at bedtime Melatonin 5 mg Tablet Active 5 MG PO Daily at bedtime March 28, 2020 1:00am Complies with drugtherapymetoprolol tartrate 50 mg oral tablet (8 sources)beta-Adrenergic BlockerStart: 29-62-3866gorb 1 tablet by mouth twice dailyMetoprolol Tartrate 50 mg tablet Active 1 TAB PO Twice daily June 28, 2023 12:00am FreeTextSi tablet Orally Twice a day; Note: Source Status: Taking; Provider: Leonel Adan ( ) Complies with drug therapytake 1 tablet by mouth every twelve hoursMetoprolol Tartrate 50 MG 1 tablet Orally Twice a day ActiveMiconazole (3 sources)Azole AntifungalStart: 27-48-9512Uiev Antifungal Topical, BID, Refill(s) 0 Start Date: 10/22/21 Status: Orderedmontelukast 10 mg oral tablet (18 sources)Leukotriene Receptor AntagonistStart: 19-46-1668pguc 1 tablet by mouth once daily at bedtimeMontelukast 10 mg tablet Active 10 MG PO Daily at bedtime March 28, 2020 1:00am Complies with drug therapyMultivitamin preparation (5 sources)Start: 38-35-7979teff 1 tablet by mouth once dailyMultivitamin Active 1 TAB PO Daily March 28, 2020 1:00amMultivitamin Orally ActiveMultivitamin Tablet (3 sources)Start: 44-56-9647otvb 1 tablet by mouth once dailyMultivitamin Tablet Active 1 TAB PO Daily March 28, 2020 1:00am Complies with drug therapy Start: 46-61-0038jwvk 1 tablet by mouth once dailyStart: 21-20-2877hzng 1 tablet by mouth once dailyMultivitamin Tablet Active 1 TAB PO Daily March 28, 2020 1:00ammultivitamin with iron (4 sources)Start: 21-81-2913rvcbztdweoxe with iron mL, Refill(s) 0 Start Date: 10/22/21 Status: Orderedmupirocin 0.02 mg/mg topical ointment (3 sources)RNA Synthetase Inhibitor AntibacterialStart: 03-67-2077kxzfflxat Top 2% Oint Topical, TID, Refill(s) 0 Start Date: 10/22/21 Status: OrderedNormal saline (7 sources)Start: 50-83-4321Cyk Saline Nasal Gel Nasal, TID, Refill(s) 0, Dry nasal passages Start Date: 07/05/15 Status: OrderedAyr Saline Nasal Gel Nasally ActiveNutritional Supplements (boost) (6 sources)Nutritional Supplements (boost) Take by mouth. 1 can tid Active omeprazole 40 mg delayed release oral capsule (20 sources)Proton Pump InhibitorStart: 02-23-2020 End: 84-44-5786ygen 1 capsule by mouth once dailyOmeprazole 40 mg capsule,delayed release(DR/EC) Active 40 MG PO Daily March 28, 2020 1:00am Complies with drug therapyOXcarbazepine 600 mg oral tablet (20 sources)Anti-epileptic AgentStart: 34-22-1850Sjnsveoafrjcr 600 mg tablet Active 300 MG PO Twice daily June 28, 2023 1:14pm Complies with drugtherapy Start: 04-40-7071clpz 300 mg by mouth twice dailyOxcarbazepine Active 300 MG PO Twice daily June 28, 2023 1:14pmStart: 02-23-2020 End: 18-05-0182xdlp 1 tablet by mouth twice dailyOxcarbazepine 300 mg tablet Discontinued 300 MG PO Twice daily March 28, 2020 1:00am June 28, 2023 1:22pmStart: 02-23-2020 End: 01-19-6690ycri 1 tablet by mouth twice dailyOxcarbazepine 600 mg tablet Discontinued 600 MG PO Twice daily March 28, 2020 1:00am June 28, 2023 1:21pmStart: 15-31-9773znfd 300 mg by mouth once dailyTrileptal 300 mg, Oral, Daily, Refills(s) 0, Seizure Start Date: 07/05/15 Status: OrderedOyster Shell Calcium + D 500-200 MG-UNIT (2 sources)take 1 tablet by mouth once daily at mealtimeOyster Shell Calcium + D 500-200 MG-UNIT 1 tablet with food Orally Once a day ActiveOyster Shell Calcium with Vitamin D (4 sources)Start: 03-01-7545Bvrxwc Shell Calcium with Vitamin D Refill(s) 0, 1 tab bid, Prophylaxis Start Date: 07/05/15 Status:WrelruuLBF8287 oral powder for reconstitution (1 source)Start: 22-57-0167IXU5060 oral powder for reconstitution Start Date: 12/16/22 Status: OrderedrifAXIMin 550 mg oral tablet (7 sources)Rifamycin AntibacterialStart: 74-77-6398mebt 1 tablet by mouth twice dailyXifaxan 550 mg oral tablet 550 mg = 1 tab(s), Oral, BID, # 60 tab(s) Start Date: 12/16/22 Status: OrderedSenna Leaves (4 sources)Start: 11-95-7105Ilesw 8.6 mg oral tablet 17.2 mg, 2 tab(s), Oral, Once a day (at bedtime) for constipation, 100 tab(s), Refill(s) 0 Start Date: 10/22/21 Status: Orderedsennosides, detention 8.6 mg oral tablet (11 sources)Start: 54-57-5856wfvb 2 tablets by mouth twice daily as [...] mg oral tablet (8 sources)Serotonin Reuptake InhibitorStart: 12-54-1223nxpv 1 tablet by mouth once dailySertraline 25 mg tablet Active 25 MG PO Daily June 28, 2023 12:00am Complies with drug therapytake 1 tablet by mouth every twenty-four hours Sertraline HCl 25 MG 1 tablet Orally Once a day ActiveSodium Chloride-Aloe Vera ([place] Saline) gel (5 sources)Start: 54-15-1397Wzgaru Chloride-Aloe Vera ([place] Saline) gel Active 1 APPLIC TOPICAL Daily at bedtime as needed 2023 12:00am Complies with drug therapyStart: 50-86-9492Zbcfv: 79-83-8843Wgquzu Chloride-Aloe Vera ([place] Saline) gel Active 1 APPLIC TOPICAL Daily at bedtime as needed 2023 12:00amStart: 19-54-2512Errrkd Chloride-Aloe Vera ([place] Saline) gel Active 1 APPLIC TOPICAL Daily at bedtime June 28, 2023 12:00amtamsulosin hydrochloride 0.4 mg oral capsule (18 sources)alpha-Adrenergic BlockerStart: 73-40-1840qrdk 1 capsule by mouth once dailyTamsulosin 0.4 mg capsule Active 0.4 MG PO Daily March 28, 2020 1:00am Complies with drug therapyVitamin D3 5000 intl units oral capsule (1 source)Start: 88-15-5294Csausul D3 5000 intl units oral capsule Start Date: 12/16/22 Status: Ordered Completed/Discontinued Medications MedicationDrug Class(es)DatesSig (Normalized)Sig (Original)acetaminophen 325 mg oral tablet (15 sources)Start: 06-12-2024 End: 13-75-4742957 mg, Oral, PACU ONCE PRN, Starting on Wed06/12/24 at 0652, Until Wed06/12/24 at 1045, Mild Pain (pain score 1,2,3), PACU NowStart: 36-82-8269juutsqgkdeowi Refills(s) 0 Start Date: 12/16/22 Status: OrderedStart: 45-59-7521Akilmqznhndxb 650 mg Suppository Active 650 MG CO EVERY 4-6 HOURS as needed for Elevated Temp March 28, 2020 1:00am Complies with drug therapy Start: 78-51-0981Agdkwxbynauwd Active 650 MG CO EVERY 4-6 HOURS March 28, 2020 1:00amStart: 03-28-2020 End: 30-18-8862olgr 2 tablets by mouth every four to six hours as needed Acetaminophen 325 mg Tablet Discontinued 650 MG PO EVERY 4-6 HOURS as needed for Elevated Temp or Generak Disco March 28, 2020 1:00am July 06, 2023 9:30amStart: 03-28-2020 End: 84-60-8562kiyw 650 mg by mouth every four to six hoursAcetaminophen Discontinued 650 MG PO EVERY 4-6 HOURS March 28, 2020 1:00am July 06, 2023 9:30amtake 1 tablet by mouth every six hours as neededAcetaminophen 325 MG 1 tablet as needed Orally every 6 hrs Activeacetylcysteine 100 mg/ml inhalation solution (5 sources)Antidote, Mucolytic, Antidote for Acetaminophen OverdoseStart: 03-28-2020 End: 21-42-3687zsvv 100 mg by inhalation every four hoursAcetylcysteine 100 mg/mL (10 %) solution Discontinued 2 ML INHALATION Q4H March 28, 2020 1:00am July 06, 2023 10:22amStart: 03-28-2020 End: 60-57-9383bths 1 mL by inhalation every four hoursAcetylcysteine Discontinued 2 ML INHALATION Q4H March 28, 2020 1:00am July 06, 2023 10:22amalbuterol 0.83 mg/ml inhalation solution (20 sources)beta2-Adrenergic AgonistStart: 06-12-2024 End: .5 mg, Nebulization, PACU ONCE PRN, Starting on Wed06/12/24 at 0652, Until Wed06/12/24 at 1045, Wheezing, PACU NowStart: 21-53-3154scwa 2.5 mg by inhalation four times daily as needed for chronic obstructive pulmonary diseaseAlbuterol Sulfate 2.5 mg /3 mL (0.083 %) solution for nebulization Active 2.5 MG INHALATION Four times daily as needed for COPD June 28, 2023 1:17pm Complies with drug therapyStart: 03-28-2020 End: 29-08-6006hasb 2.5 mg by inhalation every six hours as needed for chronic obstructive pulmonary diseaseAlbuterol Sulfate 2.5 mg /3 mL (0.083 %) Solution For Nebulization Discontinued 2.5 MG INHALATION Q6H as needed for COPD March 28, 2020 1:00am June 28, 2023 1:21pmStart: 03-28-2020 End: 17-13-5185eohj 2.5 mg by inhalation every two hours as neededAlbuterol Sulfate 2.5 mg /3 mL (0.083 %) Solution For Nebulization Discontinued 2.5 MG INHALATION Q2H as needed for Shortness Of Breath March 28, 2020 1:00am June 28, 2023 1:17pmStart: 23-74-6191ixqodfrqs 0.083% Inh Cassie 3 mL UD Inhalation, [...] 2.5 mg/ml injection (1 source)Start: 06-12-2024 End: 55-10-7618vffw 10 mg intravenously once as needed for duzuvq55 mg, Intravenous Push, PACU ONCE PRN, Starting on Wed06/12/24 at 0652, Until Wed06/12/24 at 1045,post operative nausea or vomiting, PACU Nowclindamycin 300 mg oral capsule (7 sources)Lincosamide AntibacterialStart: 02-29-2020 End: 81-29-2932iqpg 1 capsule by mouth three times dailyclindamycin (CLEOCIN) 300 MG capsule TAKE 1 CAPSULE BY MOUTH 3 TIMES DAILY FOR 7 DAYS. 21 Capsule 06/02/2024 DiscontinuedlevoFLOXacin 750 mg oral tablet (5 sources)Quinolone AntimicrobialStart: 03-28-2020 End: 39-16-9416slwf 1 tablet by mouth once dailyLevofloxacin 750 [...] oral tablet (1 source)Opioid AgonistStart: 06-12-2024 End: 02-24-13909 mg, Oral, PRN, 1 dose, Starting on Wed06/12/24 at 0652, Until Wed06/12/24 at 1045, Moderate Pain (pain score 4,5,6), PACU Nowpolyethylene glycol 3350 80307 mg powder for oral solution (12 sources)Osmotic LaxativeStart: 07-05-2015 End: 09-89-2448Dagcvsrnladr Glycol 3350 (Clearlax) 17 gram/dose Powder Discontinued 17 GM PO Daily March 28, 2020 1:00am July 06, 2023 10:26am Polyethylene Glycol 3350 (Clearlax) 17 gram/dose Powder (3 sources)Start: 03-28-2020 End: 31-12-1860Cjwxpvrkohpv Glycol 3350 (Clearlax) 17 gram/dose Powder Discontinued 17 GM PO Daily March 28, 2020 1:00am July 06, 2023 10:26am Start: 47-49-1961Yvfututnzsxn Glycol 3350 (Clearlax) 17 gram/dose Powder Active 17 GM PO Daily March 28, 2020 1:00ampredniSONE 20 mg oral tablet (5 sources)Start: 03-28-2020 End: 57-11-2616bita 1 tablet by mouth once dailyPrednisone 20 [...] (Aloe Vera)) Gel (5 sources)Start: 03-28-2020 End: 41-34-5989Fmocaf Chloride-Aloe Vera (Saline Nasal (Aloe Vera)) Gel Discontinued 2 APPLIC INTRANASAL Three times daily March 28, 2020 1:00am June 28, 2023 1:23pmdivalproex sodium 125 mg delayed release oral capsule (20 sources)Mood Stabilizer, Anti-epileptic AgentStart: 06-28-2023 End: 13-32-2319gnwc 2 capsules by mouth twice dailyDivalproex 125 mg capsule, delayed rel sprinkle Discontinued 250 MG PO Twice daily June 2741:06pm June 28, 2023 1:22pmStart: 06-28-2023 End: 14-94-8489mwkc 250 mg by mouth twice dailyDivalproex Discontinued 250 MG PO Twice daily June 28, 2023 1:06pm June 28, 2023 1:22pmStart: 02-23-2020 End: 06-79-2715vfev 1 tablet by mouth twice dailyDivalproex 250 mg tablet,delayed release (DR/EC) Active 250 MG PO Twice daily June 28, 2023 1:07pm Complies with drug therapyStart: 02-23-2020 End: 72-88-3836rgbi 1 capsule by mouth twice dailyDivalproex 125 mg capsule, delayed rel sprinkle Discontinued 125 MG PO Twice daily March 28, 2020 1:00am June 28, 2023 1:21pmStart: 22-62-2053okvn 1 mg by mouth three times dailydivalproex sodium 125 mg Cap-EC mg cap(s), Oral, TID, Refills(s) 0 Start Date: 10/22/21 Status: OrderedStart: 02-23-2020 End: 70-81-7501ekee 1 tablet by mouth three times dailyDivalproex 250 mg tablet,delayed release (DR/EC) Discontinued 250 MG PO Three times daily March 28, 2020 1:00am June 28, 2023 1:21pm Problems Active Problems Problem ClassificationProblemDateDocumented DateEpisodic/ChronicAttention- deficit, conduct, and disruptive behavior disorders (9 sources)Attention deficit hyperactivity disorder, predominantly inattentive type; Translations: [Other specified behavioral and emotional disorders with onset usually occurring in childhood and adolescence]15-54-8791QggcjdzCxgohahsj- deficit, conduct, and disruptive behavior disorders (1 source)Attention-deficit hyperactivity disorder, unspecified type; Translations: [ADHD UNSPECIFIED TYPE]Onset: 34-33-4755VbrutatHqzglhdgk-deficit, conduct, and disruptive behavior disorders (2 sources)Disruptive behavior disorder; 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, unspecified]99-28-1753YjfwiefLbcrzvv obstructive pulmonary disease and bronchiectasis (19 sources)Chronic obstructive lung disease; Translations: [Chronic obstructive pulmonary disease, unspecified]Onset: 12-23-2021 Resolved: 63-69-4296HdgnnrrLhprpifyjrbey disorders (20 sources)Severe intellectual disability; Translations: [Mental handicap] Onset: 018728-87-3873IxzjxbwQaojrdcdt of lipid metabolism (1 source)Hyperlipidemia, unspecified; Translations: [HYPERLIPIDEMIA UNSPECIFIED]Onset: 67-44-6156FivydjrR Codes: Adverse effects of medical drugs (1 source)Adverse effect of other antiepileptic and sedative-hypnotic drugs, initial encounter; Translations:[ADVRS EFF OTH ANTIEPI SED RX INIT]Onset: 22-79-6660VdhuzqmaZetuitnv; convulsions (20 sources)Epilepsy, unspecified, not intractable, without status epilepticus; Translations: [Seizure disorder]Onset: 29-18-7617VltyceiOvsrzbkuor disorders (6 sources)Gastro-esophageal reflux disease without esophagitis; Translations: [Gastroesophageal reflux disease]Onset: 587713-75-6963IhqpimmHeociqudgrwuc congenital anomalies (7 sources)Retractile testis; 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]Onset: 10-22-2021 ChronicGenitourinary symptoms and ill-defined conditions (4 sources)Unspecified urinary incontinence; Translations: [Intermittent urinary incontinence]Onset: 02-00-8815IknymqoWnycbirpzjx of prostate (1 source)Benign prostatic hyperplasia without lower urinary tract symptoms; Translations: [BENIGN PROSTATIC HYPRPLASIA WO LUTS]Onset: 96-07-0324Waufnbt Malaise and fatigue (1 source)Other fatigue; Translations: [OTHER FATIGUE]Onset: 13-16-2843Sibluspi Menopausal disorders (1 source)Hormone replacement therapy; Translations: [HORMONE REPLACEMENT THERAPY]Onset: 45-37-3964UigeokyoDwjtxaz (4 sources)Vzlkcqutcgbyq11-54-8125VwxaqexjPuhfhyyrl; nephrosis; renal sclerosis (6 sources)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; Translations: [Nephritis and nephropathy, not specified as acute or chronic, with unspecified pathological lesion in kidney]Onset: ChronicNutritional deficiencies (1 source)Vitamin D deficiency, unspecified; Translations: [VITAMIN D DEFICIENCY UNSPECIFIED]Onset: 55-71-8067PldbebxBkczjwxtziyk (9 sources)Osteoporosis; Translations: [Age-related osteoporosis without current pathological fracture]Onset: 058635-04-3132BaebwrbEpelu aftercare (5 sources)Other rn long term care (current) drug therapy; Translations: [OTH PENITENTIARY CURRENT DRUG THERAPY]Onset: 51-28-7576YumowkdiFoslt and ill-defined heart disease (1 source)Cardiomegaly; Translations: [Cardiomegaly]91-07-0316UkscggbJizjw and ill-defined heart disease (1 source)Cardiomegaly; Translations: [Cardiomegaly]Onset: 24-36-0583Dzqmsqn Other congenital anomalies (1 source)Tristen syndrome; 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]Onset: 08-05-2022 ChronicOther diseases of kidney and ureters (1 source)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; Translations: [Cyst of kidney, acquired]Onset: 81-75-5869SlsemmbdSsvcq gastrointestinal disorders (1 source)Other constipation; Translations: [OTHER CONSTIPATION]Onset: 41-91-3308QkjxjtfcVzxri liver diseases (1 source)Hepatic encephalopathy; Translations: [HEPATIC ENCEPHALOPATHY]Onset: 28-95-6879MvuhtsvjLscjs lower respiratory disease (4 sources)Shortness of breath; Translations: [SHORTNESS OF BREATH]Onset: 98-08-6243AqonimmjRobux lower respiratory disease (5 sources)Wheezing; Translations: [Wheezing]20-39-8145BtdurmuaPhvrxrk on above: Problem List clean-up per request of Phys. EHR CmteOther nervous system disorders (2 sources)Aphasia; Translations: [Aphasia]17-98-0063BilvjoiXkslm nutritional; endocrine; and metabolic disorders (5 sources)Disorder of urea cycle metabolism, unspecified; 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]Onset: 63-33-5522ZolcotdRnemx upper respiratory disease (5 sources)Seasonal allergy; Translations: [Other seasonal allergic rhinitis] 83-59-1456YibftqoJicnj upper respiratory infections (8 sources)Chronic sinusitis; Translations: [Chronic sinusitis, unspecified] 85-78-5035UvzqrqjCgelujsqd (20 sources)Tetraplegia; Translations: [Quadriplegia, unspecified]Onset: 57-23-6422DftrbycQpwojwijn (except that caused by tuberculosis or sexually transmitted disease) (1 source)Pneumonia, unspecified organism; Translations: [PNEUMONIA UNSPECIFIED ORGANISM]Onset: 22-64-3959WbhbpchkTjkqcolt codes; unclassified (1 source)Restlessness and agitation; Translations: [RESTLESSNESS AND AGITATION] Onset: 52-27-0880AyouqusCfmfryzy codes; unclassified (1 source)Edema; Translations: [Edema, unspecified]97-67-9320WrpjwwvaUtlgdciamlq failure; insufficiency; arrest (adult) (1 source)Acute respiratory failure with hypoxia; Translations: [ACUTE RESPIRATORY FAIL W/HYPOXIA]Onset: 73-82-5298AgqgbvsdNzjqilpfum (except in labor) (5 sources)Sepsis, unspecified organism; Translations: [Other specified sepsis] Onset: 82-90-6578KqktfgffKvgyfej disorders (13 sources)Hypothyroidism; Translations: [Hypothyroidism, unspecified]Onset: 141331-05-2501NobetwyBcrwsnerudvq (3 sources)COUGH, UNSPECIFIED; Translations: [COUGH, UNSPECIFIED]Onset: 01-34-6851Gvihtguazcet (1 source)CONTACT W/AND (SUSP) EXPOS COVID-19; Translations: [CONTACT W/AND (SUSP) EXPOS COVID-19]Onset: 82-94-4925Fboopqyywbon (1 source)PT OTH NONCOMPLIANCE MED OTH REASON; Translations: [PT OTH NONCOMPLIANCE MED OTH REASON]Onset: 73-58-0163Qcjvo infection (1 source)Human metapneumovirus as the cause of diseases classified elsewhere; Translations: [HMPV CAUSE DZ CLASSIFIED ELSEWHERE]Onset: 06-48-2502Rybgscku Past or Other Problems Problem ClassificationProblemDateDocumented DateEpisodic/ChronicCardiac dysrhythmias (2 sources)Tachycardia; Translations: [Tachycardia, unspecified]Onset: 554224-75-0361GvzeopdjCbntolxvbsxdw of surgical procedures or medical care (4 sources)Other complications of procedures, not elsewhere classified, initial encounter; Translations: [OTH COMPLICATIONS PROC NEC INITIAL]Onset: 09-29-2021 EpisodicDisorders of teeth and jaw (13 sources)Dental caries; Translations: [Dental caries, unspecified]Onset: 03-28-2024 Resolved: 107047-79-8351JjsvbstxLpsnfefm; convulsions (16 sources)Seizure disorder; Translations: [Unspecified convulsions]Onset: 869812-11-7982LswscfptNnbmfswo; convulsions (4 sources)Epilepsy; tinypojqkzl05-37-1259Gnuot of unknown origin (4 sources)Fever, unspecified; Translations: [FEVER UNSPECIFIED]Onset: 68-86-7971BslbyhddWoeuod and vomiting (3 sources)Vomiting, unspecified; Translations: [VOMITING UNSPECIFIED]Onset: 87-70-1912IbquctneKqopf circulatory disease (4 sources)Other specified symptoms and signs involving the circulatory and respiratory systems; Translations:[OTH SPEC SX SIGNS INVLV CIRC RS]Onset: 13-45-0218DjmolieuDejuz diseases of kidney and ureters (4 sources)Cyst of kidney, acquired; Translations: [CYST OF KIDNEY ACQUIRED] Onset: 58-68-9047UavzezxvJbhfi gastrointestinal disorders (1 source)Constipation, unspecified; Translations: [CONSTIPATION UNSPECIFIED] Onset: 70-36-4012BpyqqbnrJeowk injuries and conditions due to external causes (4 sources)Other injury of unspecified body region, initial encounter; Translations: [OTHER INJURY UNS BODY REGION INIT]Onset: 63-57-3903TtjtlyomPxdif male genital disorders (1 source)Other specified disorders of the male genital organs; Translations: [OTHER SPEC D/O MALE GENITAL ORGANS]Onset: 85-81-3513LvkpzipnTixef screening for suspected conditions (not mental disorders or infectious disease) (4 sources)Abnormal finding of blood chemistry, unspecified; Translations: [Electrocardiogram abnormal]Onset: 093985-72-4780RnbkwfexJniyi upper respiratory infections (1 source)Acute upper respiratory infection, unspecified; Translations: [ACUTE UP RESPIRATORY INFECTION UNS]Onset: 47-99-1513EyugivetKntpnwhn codes; unclassified (1 source)Insomnia, unspecified; Translations: [INSOMNIA UNSPECIFIED]Onset: 77-77-4351LofunsesWnqrvbgd codes; unclassified (1 source)Edema, unspecified; Translations: [Edema, unspecified]Onset: 14-65-9789DbysmpayZzucufmmkimq (1 source)COUGH, UNSPECIFIED; Translations: [COUGH, UNSPECIFIED]Onset: 41-27-6553Tkiwyzjhvclc (2 sources)Preprocedural examination mxrn48-96-8946 Results Test NameValueInterpretationReference RangeFacilityProgress Noteson 12-11-2024 School Speech Therapist Authentication Interface Message Text----- Wednesday, December 11, 2024 at 11:07:03 AM ----- ----- Provider: [id number] Jose -- Clinic: [place] ----- LIMITED EXAM Patient presents for Scheduled [...] for definitive treatment. Guardian mother Katia Lopez. [phone]. [facility] [phone] [phone] ( [facility]) Contact Information [phone] (Home Phone) Alternate Parent Educator RUTH (Other) NOTE: Scheduled for OR ----- Signed on Wednesday, December 11, 2024 at 12:38:13 PM ----- ----- Provider: [id number] Jacobs DMD -- Clinic: [place] -----NormalThe [facility] Anesthesia Postprocedure Evaluationon 85-21-4831Yxlccwwnackir Authentication Interface Message TextAnesthesia Postoperative Assessment: Vital [...] ANESTHESIA NOTABLE EVENTS: No notable events documented.NormalThe [facility]ally[facility] SystemAnesthesia Preprocedure Evaluationon 62-42-0631Muhyxcerwwttl Authentication Interface Message TextASA: 3 No history [...] were discussed with the patient and/or legal territory service representative. The risks, benefits and alternatives were reviewed. Questions regarding anesthesia were answered. Patient and/or legal territory service representative knows such anesthetics and procedures may be performed by Resident physicians, Certified Anesthesiologist Assistants, or Certified Nurse Anesthetists under the supervision of a physician. The patient /or the patient's legal territory service representative agree with the plan for anesthesia. Comment: Consent obtained from patient's mother over the phone. Also explained what to expect from anesthesia [facility] Social History Socioeconomic History Marital status: Single Social History Narrative Resident at [facility]. Mom is guardian CBC 06/02/2024 3:03 [...] mg, DAILY Vitamin D3 125 mcg, DAILYNormalThe [facility] SystemAnesthesia Transfer Of Care on 98-12-3066Scliubcapnmgr Authentication Interface Message TextPatient taken to PACU. [...] 1 extraction; Surgeon: Ap Scott DDS; Location: [facility]; Service: Dental Allergies: [...] was received. [place] [facility] SystemBlood Attestationon 11-01-6497Vcypyatumqdml Authentication Interface Message TextBlood Attestation: REFUSAL OF BLOOD OR BLOOD COMPONENTS: The patient and/or legal territory service representative has been explained the need for transfusion of blood and/or blood components. The risks, benefits and alternatives have been explained. Questions concerning the transfusion of blood or blood components have been asked and answered. The patient and/or legal territory service representative have REFUSED TO CONSENT transfusion of blood or blood products. PER PAT[facility]'S [facility] SystemBrief Operative Noteon 50-87-9125Jcyvqtypehavc Authentication Interface Message TextBrief Operative Note PHE OR 3 Parish Lopez 44 year old male Surgical Contact Serial Number: [id number] Preoperative Diagnosis: Pre-op Diagnosis * Caries [K02.9] Mental disability COPD Hyperthyroidism Seizures HLD GERD Postoperative Diagnosis: Mental disability COPD Hyperthyroidism Seizures HLD GERD Procedures: Full mouth x-rays [32240] Comprehensive Exam [61154] Dental prophylaxis [52796] Surgeon(s): Surgeon(s): Ap Scott DDS Staff: Senior Cytogenetic Technologist Nurse: Felisha Moore Anesthesia: General Anesthesiologist: Blake [...] 7:03 AMNormalThe [facility], IncOP Noteon 61-41-7155Mirnceeoohraj Authentication Interface Message TextOperative Note PHE OR 3 Parish Lopez 44 year old male Surgical Contact Serial Number: [id number] Preoperative Diagnosis: Pre-op Diagnosis * Caries [K02.9] Mental disability COPD Hyperthyroidism Seizures HLD GERD Postoperative Diagnosis: Mental Disability COPD Hyperthyroidism Seizures HLD GERD Procedures: Full mouth x-rays [03770] Comprehensive Exam [14904] Dental prophylaxis [06689] Surgeon: Ap Scott DDS Rehabilitation Supervisor Surgeon: Hansel Burgess DDS; Baetris Thompson, JESSICA Anesthesia: General- Nasal ETT Estimated [...] the procedure. Beatris Thompson DDS 06/12/2024 7:07 AMNormalSamaritan Hospital SystemProgress Noteson 76-32-8679Gdkecilyobecv Authentication Interface Message Text----- Wednesday, June 12, 2024 at 8:41:56 AM ----- ----- Provider: [id number] - Ap Adams DDS -- Clinic: [facility] ----- H, pt is ready for tx. [place], only scaling was done. Operative Note PHE OR 3 Parish Lopez 44 year old male Surgical Contact Serial Number: [id number] Preoperative Diagnosis: Pre-op Diagnosis * Caries [K02.9] Mental disability COPD Hyperthyroidism Seizures HLD GERD Postoperative Diagnosis: Mental Disability COPD Hyperthyroidism Seizures HLD GERD Procedures: Full mouth x-rays [91406] Comprehensive Exam [33134] Dental prophylaxis [41962] Surgeon: Ap Scott DDS Rehabilitation Supervisor Surgeon: Hansel Burgess DDS; Beatris Thompson DMD [...] 2024 at 8:46:14 AM ----- ----- Provider: [id number] - Ap Adams DDS -- Clinic: [facility] -----NormalThe [facility] EKG 12 LEAD - PERFORMon 44-68-0294XaublivorEvvkg tachycardia Possible Left atrial enlargement Nonspecific T wave abnormality Abnormal ECG Confirmed by JOSSELIN NIETO ([id number]) on 06/05/2024 9:00:17 PM MetroHealthP wave [facility] by [id number] wave ymii98ablmaqaQnxlrWsdqmg P-R Lacicomd562 msMetroHealthQ-T xyaglbvr464 msMetroHealthQ-T interval corrected 430 msMetroHealthQRS oqqp9bbsmhatZzygeJykineBYT msMetroHealthT wave axis-4degreesMetroHealthMetroHealthTelephone Encounteron 03-58-2710Xfkpwtwomxslk Authentication Interface Message TextInformed Consent for dental surgery AND Anesthesia consent obtained and scanned into [email or web address]. Scheduled for surgery 06/12/2024.NormalThe [facility] SystemAddendum Noteon 05-28-8372Ccenenvpcztmw Authentication Interface Message TextAddended by: BOYD HARRY on: 06/02/2024 05:54 PM Modules accepted: OrdersNormalThe [facility] SystemBASIC METABOLIC PANELon 13-87-2014Hxgff gap [Moles/Vol]18 mmol/RRkmxkb32-82Nzr [facility] SystemComment on above:Performed By: #### CH8 ####[facility] [id number] [place], [address]Ifzxhep [Mass/Vol]10.5 mg/dLHigh8.6-10.3The [facility] SystemComment on above:Performed By: #### CH8 ####S PATHOLOGY [id number] [place], [address]Fhcamhjq [Moles/Vol]109 mmol/UNnql62-307Osw [facility] SystemComment on above:Performed By: #### CH8 ####[facility] PATH[facility]Y [id number] [place], [address]SB2 [Moles/Vol]22 mmol/ZQlshsp58-36Hpw [facility] SystemComment on above:Performed By: #### CH8 ####[facility] PATHOLOGY [id number] [place], [address]Qgphsnbtfu [Mass/Vol]0.61 mg/dLLow0.70-1.30The [facility] Comment on above:Performed By: #### CH8 ####[facility] PATH[facility] [id number] [place], [address]SWSKCAXLV GFR (CKD-EPI)121 mL/min/1.73sqmNormal>=60The [facility] SystemComment on above:Result Comment: 2020 CKD EPI [...] Med 1 Vol. 385 Issue 19 Pages 8143-8868Performed By: #### CH8 ####S PATHOLOGY [id number] [place], [place], Glucose [Mass/Vol]126 mg/tOZsfb24-080Xia [facility] SystemComment on above: Performed By: #### CH8 ####S PATHOLOGY [id number] [place], [address]Tbpkpoqyh [Moles/Vol]4.8 mmol/LNormal3.5-5.0The [facility] SystemComment on above:Performed By: #### CH8 ####S PATHOLOGY [id number] [place], [address]Frrisp [Moles/Vol]144 mmol/PYgksvx122-960Xim [facility] SystemComment on above:Performed By: #### CH8 ####S PATHOLOGY [id number] [place], [address]Apup nitrogen [Mass/Vol]14 mg/dLNormal7-25The [facility] SystemComment on above: Performed By: #### CH8 ####S PATHOLOGY [id number] [place], [address]Wxwwb metabolic 2000 panelon 68-54-3715Xzfrg gap [Moles/Vol]18 mmol/L10 - 20MetroHealthCalcium [Mass/Vol]10.5 mg/dLHigh8.6 [...] Med 1 Vol. 385 Issue 19 Pages 5465-8794 Glucose [Mass/Vol]126 mg/xPUqbt69 - 109 mg/dLMetroHealthInterpretation and review of laboratory resultsAbnormalMetroHealthPotassium [Moles/Vol]4.8 mmol/L 3.5 - 5.0 mmol/LMetroHealthSodium [Moles/Vol]144 mmol/L136 - 145 mmol/L MetroHealthUrea nitrogen [Mass/Vol]14 mg/dL7 - 25 mg/dLMetroHealthMetroHealthCBC panel Auto (Bld)on 16-65-8179Aqntolqqpbg distribution width (RBC) [Ratio]14.5 % 11.5 - 14.5 %MetroHealthHematocrit (Bld) [Volume fraction]42.5 %41.0 - 53.0 % MetroHealthHemoglobin (Bld) [Mass/Vol]13.8 g/dLLow13.9 - 16.3 g/dLMetroHealth Interpretation and review of laboratory resultsAbnormalMetroHealthMCH (RBC) [Entitic mass]30.7 pg26.0 - 34.0 pgMetroHealthMCHC (RBC) [Mass/Vol]32.4 g/dL32.0 - 35.9 g/dLMetroHealthMCV (RBC) [Entitic vol]95 fL80 - 100 fLMetroHealth Platelet mean volume (Bld) [Entitic vol]9.3 fL7.5 - 11.2 fLMetroHealthPlatelets (Bld) [#/Vol]419 10*3/hPXpua532 - 400 K/uLMetroHealthRBC (Bld) [#/Vol]4.49 10*6/uLLowMetroHealthWBC (Bld) [#/Vol]7 10*3/uL4.5 - 11.5 K/uLMetroHealth MetroHealthCOMPLETE BLOOD COUNTon 15-16-3013Scucuusqafc distribution width (RBC) [Ratio]14.5 %Unrocn03.5-14.5The [facility] SystemComment on above:Performed By: #### CBC #### [facility] [address] [place] [address], [address]Fjlskyaiup (Bld) [Volume fraction]42.5 %Dxdwsn04.0-53.0 The [facility] SystemComment on above:Performed By: #### CBC #### [facility] [address] [place], [address]Ybmakbyqie (Bld) [Mass/Vol]13.8 g/dLLow13.9-16.3The [facility] SystemComment on above:Performed By: #### CBC #### [facility] [address] [place] [address], [address]TTH (RBC) [Entitic mass]30.7 htGqswaf11.0-34.0The [facility] SystemComment on above:Performed By: #### CBC #### [facility] [address] [place] [address], [address]FKWJ (RBC) [Mass/Vol]32.4 g/zHUznhjn80.0-35.9The [facility] SystemComment on above:Performed By: #### CBC #### [facility] [address] [place] [address], [address]EXD (RBC) [Entitic vol]95 lFQjdnze93-489Bbf [facility] SystemComment on above:Performed By: #### CBC #### [facility] [address] [place] [address], [address]Tygcvhzs mean volume (Bld) [Entitic vol]9.3 fLNormal 7.5-11.2The [facility] SystemComment on above:Performed By: #### CBC #### [facility] [address] [place] [address], [address]Rbslevfrg (Bld) [#/Vol]419 10*3/mRAbet350-103Aff [facility] SystemComment on above:Performed By: #### CBC #### [facility] [address] [place] [address], [address]CRX (Bld) [#/Vol]4.49 10*6/uLLow4.50-5.90The [facility] SystemComment on above:Performed By: #### CBC #### [facility] [address] [place] [address], [address]RRR (Bld) [#/Vol]7.0 10*3/uLNormal4.5-11.5The [facility] SystemComment on above:Performed By: #### CBC #### [facility] [address] [place] [address], [address]Adsptos Instructionson 04-96-7881Kiebxbxhyhktb Authentication Interface Message TextRECOMMENDATIONS: Patient was instructed on the following: Nothing by mouth after midnight before surgery except following meds with sip of water on AM of surgery: as per anesthesia Stop aspirin 7 days before surgery Stop NSAID 5 days before surgery Stop Vitamin E 10 days prior to surgery Stop alternative/herbal medication 10 days before surgery Boyd Harry [facility]DSy[facility] SystemProgress Noteson 06-02-2024 School Speech Therapist Authentication Interface Message TextBlood pressure 154/73, pulse [...] 1 extraction; Surgeon: Ap Scott DDS; Location: [facility]; Service: Dental Pertinent Social History [...] fever, chills, night sweats, and weight loss 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: h/o Seizur (more content not included)...NormalThe [facility] SystemTHYROXINE (T4), FREEon 11-76-1664Sldn T4 [Mass/Vol]0.7 ng/dL0.61 - 1.12 ng/dLMetroHealth Interpretation and review of laboratory resultsNormalMetroHealthMetroHealthT4 F 0.70 ng/dLNormal0.61-1.12The [facility] SystemComment on above:Performed By: #### TSH HS, T4 F #### [facility] [address] [place], [address]YXMan [id number] and review of laboratory resultsAbnormalMetroHealthTSH Qn0.229 m[IU]/LLowMetroHealthMetroHealthTSH0.229 uIU/mLLow0.450-5.330The [facility] SystemComment on above:Performed By: #### TSH HS, T4 F #### [facility] [address] [place], [address]YF Chest PA and Lateralon [id number] eagle MD - 06/02/2024 EXAMINATION: XR CHEST [...] PA and LateralOrdered By: Greta Heck on 06-30-5939QswyjZdzfmo Work Phone: No Panel Informationon [id number] Healthcare Progress Noteson 06-37-1333Nwgkbyigylyqi Authentication Interface Message Text Parent/guardian/patient was contacted for PSE AND OR scheduled -- confirmed information with mom, also informed mom importance of receiving PSE call -- if not received surgery will be canceled. 06/12/2024 ----- Thursday, April 25, 2024 at 2:35:00 PM ----- ----- Provider: PEARL [employer] -- Clinic: [place] -----NormalThe [facility] SystemNo Panel Informationon 58-59-5361Gh in note [facility] HealthcareAmbulatory Visit Summaryon 21-27-0919Sqwcmtrtmz Visit Summary PARISH LOPEZ :1980 Visit Date:12/16/2022 [...] (oxcarbazepine 600 mg Tab) polyethylene glycol 3350 (UOT8302 oral powder for reconstitution) polyethylene glycol 3350 (polyethylene glycol 3350 17 gram packet) rifaximin (Xifaxan 550 mg oral tablet) senna (Senna 8.6 mg oral tablet) sodium chloride nasal (Maumee Saline Nasal Gel) tamsulosin Discharge Vitals Temperature [...] Crm) 1 Application T (more content not included)...[facility] Educationon 95-99-8045Ynvcxag EducationObstetrics and Gynecology Kegel Exercises Kegel exercises [...] provider. Document Revised: 08/14/2021 Document Reviewed: 08/14/2021 [employer] Patient Education ? 2022 [email or web address].[facility] Physician Orderon [id number] Order [id number]#1.00CD:127[facility] CenterRAD - Ultrasound Reporton [id number] - Ultrasound Report [id number]#1.00CD:127[facility] CenterUrology Office/Clinic Noteon 78-83-6040Jgvkfhs Office/Clinic NoteChief Complaint 1281 year F/u HPI [...] of retractile testes. Pt currently resides in [facility]. CBC/CMP 08/01/22 1. Retractile testis (Q55.22: Retractile [...] Eye-Both, QID atorvastatin, 10 mg, Oral, Daily Maumee Saline Nasal Gel, Nasal, TID azelastine nasal 137 mcg/inh spray, 2 spray(s), Nasal, As (more content not included)...[facility] Medical CenterComment on above:Result Comment: Electronically Signed By: Arline Levine MD\.br\Date and Time Signed: 12/16/22 20:02EDT\.br\Electronically Co-Signed By: Makayla Todd\.br\Date and Time Co-Signed: 12/16/22 11:27 EDTXR CHEST 1 Von [id number] CHEST 1 VEXAM: XR CHEST 1 V [...] authenticated by: GUANAKITO MEADE Date: 2022-08-04 18:50NormalThe [facility] HospitalONIA [id number] (P) [Moles/Vol]87 umol/LCritically taua11-43Xgs [facility] HospitalComment on above:Performed By: #### BMP #### [facility] [address] [place] [address] Dr. Deepak GreenfieldDOWNEY REGIONAL MEDICAL CENTERONIA [id number] (P) [Moles/Vol]42 umol/LCritically dqjf25-79Jaf [facility] HospitalComment on above:Performed By: #### MG, CMP #### [facility] [address] [place] [address] Dr. Deepak Brand W MANUAL DIFFon [id number] LYMPH #0.41 103/ulNormal The [facility] HospitalComment on above:Performed By: #### MG, CMP #### [facility] [address] [place] [address] Dr. Deepak SouthYPICAL LYMPH %7 %NormalCleveland Clinic FoundationComment on above: Performed By: #### MG, CMP #### [facility] [address] [place] [address] Dr. Deepak Dow #0.0 103/ulNormal0.0-0.3The [facility] HospitalComment on above:Performed By: #### MG, CMP #### [facility] [address] [place] [address] Dr. Deepak Dow %0 %Normal0-5The [facility] HospitalComment on above:Performed By: #### MG, CMP #### [facility] [address] [place] [address] Dr. Deepak Farah #0.00 103/ulNormal0.00-0.10The [place] HospitalComment on above:Performed By: #### MG, CMP #### [facility] [address] [place] [address] Dr. Deepak SalgadoM %0.0 %Critically low0.2-2.0The [place] HospitalComment on above:Performed By: #### MG, CMP #### [facility] [address] [place] [address] Dr. Deepak Love #NormalThe [place] HospitalComment on above:Performed By: #### MG, CMP #### [facility] [address] [place] [address] Dr. Deepak Love %NormalThe [place] HospitalComment on above:Performed By: #### MG, CMP #### [facility] [address] [place] [address] Dr. Deepak GreenfieldCORRECTED WBCNormal4.0-11.0The [facility] HospitalComment on above: Performed By: #### MG, CMP #### [facility] [address] [place] [address] Dr. Deepak Hernandez #0.06 103/ulNormal0.00-0.70The [facility] HospitalComment on above:Performed By: #### MG, CMP #### [facility] [address] [place] [address] Dr. Deepak Hernandez%1.0 %Normal0.9-7.0The [place] HospitalComment on above: Performed By: #### MG, CMP #### [facility] [address] [place] [address] Dr. Deepak GreenfieldHCT37.6 %Critically low42.0-54.0The [place] HospitalComment on above:Performed By: #### MG, CMP #### [facility] [address] [place] [address] Dr. Deepak GreenfieldHGB12.3 g/dlCritically low14.0-18.0The [facility] HospitalComment on above:Performed By: #### MG, CMP #### [facility] [address] [address] [address] Deepak De Jesus #1.91 103/ulNormal1.20-3.80The [facility] HospitalComment on above:Performed By: #### MG, CMP #### [facility] [address] [address] [address] Deepak De Jesus%33.0 %Prcumh84.5-60.0The [facility] HospitalComment on above:Performed By: #### MG, CMP #### [facility] [address] [place] [address] Dr. Deepak SchwartzH31.7 nqLqtepq12.9-34.0The [facility] HospitalComment on above: Performed By: #### MG, CMP #### [facility] [address] [place] [address] Dr. Deepak SchwartzHC32.7 g/xnJfxjdz42.9-35.2The [facility] HospitalComment on above:Performed By: #### MG, CMP #### [facility] [address] [place] [address] Dr. Deepak SchwartzV96.9 fLCritically high80.0-94.0The [facility] HospitalComment on above:Performed By: #### MG, CMP #### [facility] [address] [place] [address] Dr. Deepak TranOCYTE #NormalThe [facility] HospitalComment on above: Performed By: #### MG, CMP #### [facility] [address] [address] [address] Deepak TranOCYTE %NormalThe [facility] HospitalComment on above: Performed By: #### MG, CMP #### [facility] [address] [place] [address] Dr. Deepak Dunn#0.29 103/ulCritically low0.30-0.80The [facility] Comment on above:Performed By: #### MG, CMP #### [facility] [address] [address] [address] Deepak Dunn%5.0 %Normal1.7-12.0The [place] HospitalComment on above: Performed By: #### MG, CMP #### [facility] [address] [place] [address] Dr. Deepak GreenfieldMPV11.0 fLNormal9.5-13.5The [place] HospitalComment on above: Performed By: #### MG, CMP #### [facility] [address] [place] [address] Dr. Deepak Sargent #NormalThe [facility] HospitalComment on above:Performed By: #### MG, CMP #### [facility] [address] [place] [address] Dr. Deepak GutierrezOCYTE %NormalThe [place] HospitalComment on above:Performed By: #### MG, CMP #### [facility] [address] [place] [address] Dr. Deepak GreenfieldNRBCNormalThe [facility] HospitalComment on above:Performed By: #### MG, CMP #### [facility] [address] [place] [address] Dr. Deepak GomezT208 103/nbZxguyz376-248Acn [facility] HospitalComment on above: Performed By: #### MG, CMP #### [facility] [address] [place] [address] Dr. Deepak GreenfieldRBC3.88 106/ulCritically low4.70-6.10The [place] HospitalComment on above:Performed By: #### MG, CMP #### [facility] [address] [place] [address] Dr. Deepak GreenfieldRDW12.9 %Gxudlz23.0-15.0The [facility] HospitalComment on above: Performed By: #### MG, CMP #### [facility] [address] [place] [address] Dr. Deepak Soto #3.13 103/ulNormal1.40-6.50The [facility] HospitalComment on above:Performed By: #### MG, CMP #### [facility] [address] [place] [address] Dr. Deepak Soto %54.0 %Ctblla63.0-75.0The [facility] HospitalComment on above: Performed By: #### MG, CMP #### [facility] [address] [place] [address] Dr. Deepak GreenfieldSTOMATOCYTES3+NormalThe [place] HospitalComment on above: Performed By: #### MG, CMP #### [facility] [address] [place] [address] Dr. Deepak GreenfieldWBC5.8 103/ulNormal4.0-11.0The [facility] HospitalComment on above: Performed By: #### MG, CMP #### [facility] [address] [place] [address] Dr. Deepak GreenfieldPROF CHEM 8 (BAS METB)on 94-52-2281Ogand gap [Moles/Vol]16.1 mmol/LNormalThe [facility] HospitalComment on above:Performed By: #### BMP #### [facility] [address] [place] [address] Dr. Deepak GreenfieldCalcium [Mass/Vol]9.3 mg/dLNormal8.5-10.1[facility] Comment on above:Performed By: #### BMP #### [facility] [address] [place] [address] Dr. Deepak GreenfieldChloride [Moles/Vol]105 mmol/AVvenpy88-760Gae [facility] Comment on above:Performed By: #### BMP #### [facility] [address] [place] [address] Dr. Deepak GreenfieldCO2 [Moles/Vol]27.6 mmol/RWdvkri21.0-32.0[facility] Comment on above:Performed By: #### BMP #### [facility] [address] [place] [address] Dr. Deepak GreenfieldCreatinine [Mass/Vol]0.96 mg/dLNormal0.70-1.30The [facility] HospitalComment on above:Performed By: #### BMP #### [facility] [address] [address] [address] Deepak McallisterGFR-AF CITIZEN OF [place]>60Normal>=60The [facility] HospitalComment on above:Performed By: #### BMP #### [facility] [address] [address] [address] Deepak McallisterGFR-NON AF CITIZEN OF [place]>60Normal>=60The [facility] HospitalComment on above:Performed By: #### BMP #### [facility] [address] [address] [address] Deepak GreenfieldGlucose [Mass/Vol]160 mg/dLCritically ggxt16-047Lvi [facility] HospitalComment on above:Performed By: #### BMP #### [facility] [address] [place] [address] Dr. Deepak GreenfieldPotassium [Moles/Vol]3.7 mmol/LNormal3.5-5.1The [facility] Comment on above:Performed By: #### BMP #### [facility] [address] [address] [address] Deepak GreenfieldSodium [Moles/Vol]145 mmol/CUutxot346-482Rwj [facility] Comment on above:Performed By: #### BMP #### [facility] [address] [address] [address] Deepak GreenfieldUrea nitrogen [Mass/Vol]5.0 mg/dLCritically low7.0-18.0The [facility] HospitalComment on above:Performed By: #### BMP #### [facility] [address] [address] [address] Deepak GreenfieldUrea nitrogen/Creatinine [Mass ratio]5.2 mg/mgNormalThe [facility] HospitalComment on above:Performed By: #### BMP #### [facility] [address] [address] [address] Deepak Álvarez 26-91-3765Gxafudf (P) [Moles/Vol]94 umol/LCritically aoxj94-61Ebo [facility] HospitalComment on above:Performed By: #### MG, CMP #### [facility] [address] [place] [address] Dr. Deepak GossC AUTO DIFFon [id number] #0.0 103/ulNormal0.0-0.1The [facility] HospitalComment on above:Performed By: #### BMP #### [facility] [address] [place] [address] Dr. Deepak GreenfieldBasophils/100 WBC (Bld)0.1 %Critically low0.2-2.0The [facility] HospitalComment on above:Performed By: #### BMP #### [facility] [address] [place] [address] Dr. Sotelo ChangEO #0.0 103/ulNormal0.0-0.7The [facility] HospitalComment on above: Performed By: #### BMP #### [facility] [address] [place] [address] Dr. Deepak Mcallisterosinophils/100 WBC (Bld)0.0 %Critically low0.9-7.0The [facility] HospitalComment on above:Performed By: #### BMP #### [facility] [address] [place] [address] Dr. Deepak Mcallisterrythrocyte distribution width (RBC) [Ratio]13.1 %Nkgluh30.0-15.0 The [facility] HospitalComment on above:Performed By: #### BMP #### [facility] [address] [place] [address] Dr. Deepak GreenfieldHematocrit (Bld) [Volume fraction]32.4 %Critically low42.0-54.0 The [facility] HospitalComment on above:Performed By: #### BMP #### [facility] [address] [place] [address] Dr. Deepak GreenfieldHemoglobin (Bld) [Mass/Vol]10.9 g/dLCritically low14.0-18.0The [facility] HospitalComment on above:Performed By: #### BMP #### [facility] [address] [place] [address] Dr. Deepak Bahena #0.02 10e3/ulNormal0.00-0.03The [facility] HospitalComment on above:Performed By: #### BMP #### [facility] [address] [place] [address] Dr. Deepak Bahena %0.3 %Normal0.0-0.5The [facility] HospitalComment on above: Performed By: #### BMP #### [facility] [address] [place] [address] Dr. Deepak LauGeo #2.7 103/ulNormal1.2-3.8The [facility] HospitalComment on above:Performed By: #### BMP #### [facility] [address] [place] [address] Dr. Deepak Lauhocytes/100 WBC (Bld)38.9 %Fvrqfy56.5-60.0The [facility] HospitalComforest health medical center on above:Performed By: #### BMP #### [facility] [address] [place] [address] Dr. Deepak MendozaUAL DIFF REQNONormalThe [facility] HospitalComment on above: Performed By: #### BMP #### [facility] [address] [place] [address] Dr. Deepak Schwartz (RBC) [Entitic mass]32.3 hfIdueeg96.9-34.0The [facility] HospitalComment on above:Performed By: #### BMP #### [facility] [address] [place] [address] Dr. Deepak Schwartz (RBC) [Mass/Vol]33.6 g/jUPqngvu45.9-35.2The [facility] HospitalComment on above:Performed By: #### BMP #### [facility] [address] [place] [address] Dr. Deepak Schwartz (RBC) [Entitic vol]96.1 fLCritically high80.0-94.0The [facility] HospitalComment on above:Performed By: #### BMP #### [facility] [address] [address] [address] Deepak Morel #0.3 103/ulNormal0.3-0.8The [facility] HospitalComment on above:Performed By: #### BMP #### [facility] [address] [place] [address] Dr. Deepak Santosocytes/100 WBC (Bld)4.9 %Normal1.7-12.0The [facility] Comment on above:Performed By: #### BMP #### [facility] [address] [place] [address] Dr. Deepak Gifford #3.9 103/ulNormal1.4-6.5The [facility] HospitalComment on above:Performed By: #### BMP #### [facility] [address] [place] [address] Dr. Deepak Mongeutrophils/100 WBC (Bld)55.8 %Mntgzy00.0-75.0The [facility] HospitalComment on above:Performed By: #### BMP #### [facility] [address] [place] [address] Dr. Deepak GreenfieldPlatelet mean volume (Bld) [Entitic vol]9.7 fLNormal9.5-13.5The [facility] HospitalComment on above:Performed By: #### BMP #### [facility] [address] [place] [address] Dr. Deepak GreenfieldPLT296 103/fuEbookq740-677Uqf [facility] HospitalComment on above: Performed By: #### BMP #### [facility] [address] [place] [address] Dr. Deepak GreenfieldRBC3.37 106/ulCritically low4.70-6.10The [facility] HospitalComment on above:Performed By: #### BMP #### [facility] [address] [place] [address] Dr. Deepak GreenfieldWBC7.0 103/ulNormal4.0-11.0The [facility] HospitalComment on above: Performed By: #### BMP #### [facility] [address] [address] [address] Deepak GreenfieldPROF CHEM 8 (BAS METB)on 45-36-9779Wzuev gap [Moles/Vol]14.9 mmol/LNormalThe [facility] HospitalComment on above:Performed By: #### CBC #### [facility] [address] [address] [address] Deepak GreenfieldCalcium [Mass/Vol]8.8 mg/dLNormal8.5-10.1The [facility] Comment on above:Performed By: #### CBC #### [facility] [address] [address] [address] Deepak GreenfieldChloride [Moles/Vol]105 mmol/TSytwws40-132Zgg [facility] Comment on above:Performed By: #### CBC #### [facility] [address] [place] [address] Dr. eDepak GreenfieldCO2 [Moles/Vol]26.4 mmol/PFeawyn33.0-32.0The [facility] Comment on above:Performed By: #### CBC #### [facility] [address] [place] [address] Dr. Deepak GreenfieldCreatinine [Mass/Vol]0.70 mg/dLNormal0.70-1.30The [facility] HospitalComment on above:Performed By: #### CBC #### [facility] [address] [address] [address] Deepak McallisterGFR-AF CITIZEN OF [place]>60Normal>=60The [facility] HospitalComment on above:Performed By: #### CBC #### [facility] [address] [address] [address] Deepak McallisterGFR-NON AF CITIZEN OF [place]>60Normal>=60The [facility] HospitalComment on above:Performed By: #### CBC #### [facility] [address] [place] [address] Dr. Deepak GreenfieldGlucose [Mass/Vol]129 mg/dLCritically vocq38-144Dvh [facility] HospitalComment on above:Performed By: #### CBC #### [facility] [address] [address] [address] Deepak GreenfieldPotassium [Moles/Vol]4.3 mmol/LNormal3.5-5.1The [facility] Comment on above:Performed By: #### CBC #### [facility] [address] [address] [address] Deepak GreenfieldSodium [Moles/Vol]142 mmol/YRfrfas236-551Pmt [facility] Comment on above:Performed By: #### CBC #### [facility] [address] [address] [address] Deepak GreenfieldUrea nitrogen [Mass/Vol]6.0 mg/dLCritically low7.0-18.0The [facility] HospitalComment on above:Performed By: #### CBC #### [facility] [address] [place] [address] Dr. Deepak Murphy nitrogen/Creatinine [Mass ratio]8.6 mg/mgNormalThe [facility] HospitalComment on above:Performed By: #### CBC #### [facility] [address] [place] [address] Dr. Deepak GreenfieldAMMONIAon 26-52-6400Frlruvy (P) [Moles/Vol]64 umol/LCritically rkbs27-73Eze [facility] HospitalComment on above:Performed By: #### CBC #### [facility] [address] [place] [address] Dr. Deepak GossC AUTO DIFFon [id number] #0.0 103/ulNormal0.0-0.1The [facility] HospitalComment on above:Performed By: #### INFLUAB #### [facility] [address] [address] [address] Deepak GreenfieldBasophils/100 WBC (Bld)0.0 %Critically low0.2-2.0The [facility] HospitalComment on above:Performed By: #### INFLUAB #### [facility] [address] [place] [address] Dr. Sotelo ChangEO #0.0 103/ulNormal0.0-0.7The [facility] HospitalComment on above: Performed By: #### INFLUAB #### [facility] [address] [place] [address] Dr. Deepak Mcallisterosinophils/100 WBC (Bld)0.0 %Critically low0.9-7.0The [facility] HospitalComment on above:Performed By: #### INFLUAB #### [facility] [address] [place] [address] Dr. Deepak Mcallisterrythrocyte distribution width (RBC) [Ratio]13.1 %Jkdedn65.0-15.0 The [facility] HospitalComment on above:Performed By: #### INFLUAB #### [facility] [address] [place] [address] Dr. Deepak GreenfieldHematocrit (Bld) [Volume fraction]31.4 %Critically low42.0-54.0 The [facility] HospitalComment on above:Performed By: #### INFLUAB #### [facility] [address] [place] [address] Dr. Deepak GreenfieldHemoglobin (Bld) [Mass/Vol]10.5 g/dLCritically low14.0-18.0The [facility] HospitalComment on above:Performed By: #### INFLUAB #### [facility] [address] [place] [address] Dr. Deepak Bahena #0.01 10e3/ulNormal0.00-0.03The [facility] HospitalComment on above:Performed By: #### INFLUAB #### [facility] [address] [place] [address] Dr. Deepak Bahena %0.2 %Normal0.0-0.5The [facility] HospitalComment on above: Performed By: #### INFLUAB #### [facility] [address] [place] [address] Dr. Deepak Dong #1.5 103/ulNormal1.2-3.8The [facility] HospitalComment on above:Performed By: #### INFLUAB #### [facility] [address] [place] [address] Dr. Yilan ChangLymphocytes/100 WBC (Bld)27.5 %Dvyszb88.5-60.0The [facility] HospitalComment on above:Performed By: #### INFLUAB #### [facility] [address] [place] [address] Dr. Deepak MendozaUAL DIFF REQNONormalThe [facility] HospitalComment on above: Performed By: #### INFLUAB #### [facility] [address] [place] [address] Dr. Deepak Schwartz (RBC) [Entitic mass]32.4 imLfoczl78.9-34.0The [facility] HospitalComment on above:Performed By: #### INFLUAB #### [facility] [address] [place] [address] Dr. Deepak Schwartz (RBC) [Mass/Vol]33.4 g/bDItdmrl54.9-35.2The [facility] HospitalComment on above:Performed By: #### INFLUAB #### [facility] [address] [place] [address] Dr. Deepak Schwartz (RBC) [Entitic vol]96.9 fLCritically high80.0-94.0The [facility] HospitalComment on above:Performed By: #### INFLUAB #### [facility] [address] [place] [address] Dr. Deepak Morel #0.2 103/ulCritically low0.3-0.8The [facility] HospitalComment on above:Performed By: #### INFLUAB #### [facility] [address] [place] [address] Dr. Deepak Santosocytes/100 WBC (Bld)2.9 %Normal1.7-12.0The [facility] Comment on above:Performed By: #### INFLUAB #### [facility] [address] [place] [address] Dr. Deepak Gifford #3.8 103/ulNormal1.4-6.5The [facility] HospitalComment on above:Performed By: #### INFLUAB #### [facility] [address] [place] [address] Dr. Deepak Mongeutrophils/100 WBC (Bld)69.4 %Xdegho24.0-75.0The [facility]Com[facility] on above:Performed By: #### INFLUAB #### [facility] [address] [place] [address] Dr. Deepak Stanfordlet mean volume (Bld) [Entitic vol]9.4 fLCritically low 9.5-13.5The [facility] HospitalComment on above:Performed By: #### INFLUAB #### [facility] [address] [place] [address] Dr. Deepak GreenfieldPLT256 103/htTeedte813-119Puo [facility] HospitalCom[facility] on above: Performed By: #### INFLUAB #### [facility] [address] [place] [address] Dr. Deepak GreenfieldRBC3.24 106/ulCritically low4.70-6.10The [facility] HospitalComment on above:Performed By: #### INFLUAB #### [facility] [address] [place] [address] Dr. Deepak GreenfieldWBC5.5 103/ulNormal4.0-11.0The [facility]Com[facility] on above: Performed By: #### INFLUAB #### [facility] [address] [place] [address] Dr. Deepak Palomares Summary.on [id number] Summary. CD:[id number]+[id number] [id number] [file] cHNlOiBj (more content not included)...[facility] CenterPROF CHEM 8 (BAS METB)on [id number] gap [Moles/Vol]8.3 mmol/LNormalCleveland Clinic FoundationComment on above:Performed By: #### INFLUAB #### [facility] [address] [address] [address] Deepak GreenfieldCalcium [Mass/Vol]8.5 mg/dLNormal8.5-10.1The [facility] Comment on above:Performed By: #### INFLUAB #### [facility] [address] [address] [address] Deepak GreenfieldChloride [Moles/Vol]104 mmol/IQnfvvj77-617Fkv [facility] Comment on above:Performed By: #### INFLUAB #### [facility] [address] [address] [address] Deepak GreenfieldCO2 [Moles/Vol]30.0 mmol/SUqeafw29.0-32.0The [facility] Comment on above:Performed By: #### INFLUAB #### [facility] [address] [address] [address] Deepak GreenfieldCreatinine [Mass/Vol]0.46 mg/dLCritically low0.70-1.30The [facility] HospitalComment on above:Performed By: #### INFLUAB #### [facility] [address] [address] [address] Sotelo ChangEGFR-AF CITIZEN OF [place]>60Normal>=60The [facility] HospitalComment on above:Performed By: #### INFLUAB #### [facility] [address] [address] [address] Deepak McallisterGFR-NON AF CITIZEN OF [place]>60Normal>=60The [facility] HospitalComment on above:Performed By: #### INFLUAB #### [facility] [address] [address] [address] Deepak GreenfieldGlucose [Mass/Vol]152 mg/dLCritically rntq02-446Wte [facility] HospitalComment on above:Performed By: #### INFLUAB #### [facility] [address] [address] [address] Deepak GreenfieldPotassium [Moles/Vol]4.3 mmol/LNormal3.5-5.1The [facility] Comment on above:Performed By: #### INFLUAB #### [facility] [address] [address] [address] Deepak GreenfieldSodium [Moles/Vol]138 mmol/MHvfayq709-328Auv [facility] Comment on above:Performed By: #### INFLUAB #### [facility] [address] [place] [address] Dr. Deepak Murphy nitrogen [Mass/Vol]9.0 mg/dLNormal7.0-18.0The [facility] HospitalComment on above:Performed By: #### INFLUAB #### [facility] [address] [place] [address] Dr. Deepak GreenfieldUrea nitrogen/Creatinine [Mass ratio]19.6 mg/mgNormalThe [facility] HospitalComment on above:Performed By: #### INFLUAB #### [facility] [address] [place] [address] Dr. Deepak GreenfieldAMMONIAon [id number] (P) [Moles/Vol]69 umol/LCritically aktq03-97Qtu [facility] HospitalComment on above:Performed By: #### AMM #### [facility] [address] [place] [address] Dr. Deepak Brand AUTO DIFFon [id number] #0.0 103/ulNormal0.0-0.1The [facility] HospitalComment on above:Performed By: #### MG, CMP #### [facility] [address] [place] [address] Dr. Deepak GreenfieldBasophils/100 WBC (Bld)0.2 %Normal0.2-2.0The [facility] Comment on above:Performed By: #### MG, CMP #### [facility] [address] [place] [address] Dr. Deepak Boothe #0.0 103/ulNormal0.0-0.7The [facility] HospitalComment on above: Performed By: #### MG, CMP #### [facility] [address] [place] [address] Dr. Deepak Mcallisterosinophils/100 WBC (Bld)0.0 %Critically low0.9-7.0[facility] FoundationComment on above:Performed By: #### MG, CMP #### [facility] [address] [place] [address] Dr. Deepak Mcallisterrythrocyte distribution width (RBC) [Ratio]13.2 %Efirpx86.0-15.0 [facility] FoundationComment on above:Performed By: #### MG, CMP #### [facility] [address] [place] [address] Dr. Deepak GreenfieldHematocrit (Bld) [Volume fraction]33.1 %Critically low42.0-54.0 The [facility] HospitalComment on above:Performed By: #### MG, CMP #### [facility] [address] [place] [address] Dr. Deepak GreenfieldHemoglobin (Bld) [Mass/Vol]10.8 g/dLCritically low14.0-18.0The [facility] HospitalComment on above:Performed By: #### MG, CMP #### [facility] [address] [place] [address] Dr. Deepak Bahena #0.04 10e3/ulCritically high0.00-0.03[facility] Comment on above:Performed By: #### MG, CMP #### [facility] [address] [place] [address] Dr. Deepak GreenfieldIG %0.5 %Normal0.0-0.5ThOhioHealth Van Wert HospitalComment on above: Performed By: #### MG, CMP #### [facility] [address] [place] [address] Dr. Deepak RicardoH #1.1 103/ulCritically low1.2-3.8The [facility] Comment on above:Performed By: #### MG, CMP #### [facility] [address] [place] [address] Dr. Deepak Laumphocytes/100 WBC (Bld)13.6 %Critically low20.5-60.0[facility] FoundationComment on above:Performed By: #### MG, CMP #### [facility] [address] [place] [address] Dr. Deepak Durham DIFF REQNONormalThe [facility] HospitalComment on above: Performed By: #### MG, CMP #### [facility] [address] [place] [address] Dr. Deepak Schwartz (RBC) [Entitic mass]32.2 jtDymalj91.9-34.0The [facility] HospitalComment on above:Performed By: #### MG, CMP #### [facility] [address] [place] [address] Dr. Deepak Schwartz (RBC) [Mass/Vol]32.6 g/tKVbkiul54.9-35.2The [facility] HospitalComment on above:Performed By: #### MG, CMP #### [facility] [address] [place] [address] Dr. Deepak Schwartz (RBC) [Entitic vol]98.8 fLCritically high80.0-94.0The [facility] HospitalComment on above:Performed By: #### MG, CMP #### [facility] [address] [place] [address] Dr. Deepak Morel #0.3 103/ulNormal0.3-0.8The [facility] HospitalComment on above:Performed By: #### MG, CMP #### [facility] [address] [place] [address] Dr. Deepak Santosocytes/100 WBC (Bld)3.8 %Normal1.7-12.0[facility] Comment on above:Performed By: #### MG, CMP #### [facility] [address] [place] [address] Dr. Deepak Gifford #6.7 103/ulCritically high1.4-6.5The [facility] Comment on above:Performed By: #### MG, CMP #### [facility] [address] [place] [address] Dr. Deepak Mongeutrophils/100 WBC (Bld)81.9 %Critically high43.0-75.0The [facility] HospitalComment on above:Performed By: #### MG, CMP #### [facility] [address] [place] [address] Dr. Deepak Stanfordlet mean volume (Bld) [Entitic vol]9.6 fLNormal9.5-13.5The [facility] HospitalComforest [facility] medical center on above:Performed By: #### MG, CMP #### [facility] [address] [place] [address] Dr. Deepak GreenfieldPLT257 103/bnKjpncs846-264Zqn [facility] HospitalComforest [facility] center on above: Performed By: #### MG, CMP #### [facility] [address] [place] [address] Dr. Deepak GreenfieldRBC3.35 106/ulCritically low4.70-6.10The [facility] HospitalComforest [facility] center on above:Performed By: #### MG, CMP #### [facility] [address] [place] [address] Dr. Deepak GreenfieldWBC8.2 103/ulNormal4.0-11.0The [facility] HospitalCom[facility] center on above: Performed By: #### MG, CMP #### [facility] [address] [place] [address] Dr. Deepak GreenfieldLACTATE/LACTIC ACIDon [id number] [Moles/Vol]1.1 mmol/L Normal0.4-2.0The [facility] on above:Performed By: #### INFLUAB #### [facility] [address] [place] [address] Dr. Deepak GreenfieldPROF CHEM 8 (BAS METB)on 32-89-5345Vfzbw gap [Moles/Vol]9.4 mmol/LNormalThe [facility] on above:Performed By: #### INFLUAB #### [facility] [address] [place] [address] Dr. Deepak GreenfieldCalcium [Mass/Vol]8.0 mg/dLCritically low8.5-10.1The [facility] on above:Performed By: #### INFLUAB #### [facility] [address] [address] [address] Deepak GreenfieldChloride [Moles/Vol]105 mmol/LShqxuh70-560Alb [facility] Comment on above:Performed By: #### INFLUAB #### [facility] [address] [place] [address] Dr. Deepak GreenfieldCO2 [Moles/Vol]30.7 mmol/URogjhe53.0-32.0The [facility] Comment on above:Performed By: #### INFLUAB #### [facility] [address] [place] [address] Dr. Deepak GreenfieldCreatinine [Mass/Vol]0.66 mg/dLCritically low0.70-1.30The [facility] HospitalComment on above:Performed By: #### INFLUAB #### [facility] [address] [place] [address] Dr. Sotelo ChangEGFR-AF CITIZEN [place]>60Normal>=60The [facility] HospitalComment on above:Performed By: #### INFLUAB #### [facility] [address] [place] [address] Dr. Deepak McallisterGFR-NON AF CITIZEN OF [place]>60Normal>=60The [facility] HospitalComment on above:Performed By: #### INFLUAB #### [facility] [address] [place] [address] Dr. Deepak GreenfieldGlucose [Mass/Vol]177 mg/dLCritically touv91-849Hwd [facility] HospitalComment on above:Performed By: #### INFLUAB #### [facility] [address] [place] [address] Dr. Deepak GreenfieldPotassium [Moles/Vol]4.1 mmol/LNormal3.5-5.1The [facility] Comment on above:Performed By: #### INFLUAB #### [facility] [address] [place] [address] Dr. Deepak GreenfieldSodium [Moles/Vol]141 mmol/FCirrfx574-767Khg [facility] Comment on above:Performed By: #### INFLUAB #### [facility] [address] [place] [address] Dr. Deepak Murphy nitrogen [Mass/Vol]9.0 mg/dLNormal7.0-18.0The [facility] HospitalComment on above:Performed By: #### INFLUAB #### [facility] [address] [place] [address] Dr. Deepak Murphy nitrogen/Creatinine [Mass ratio]13.6 mg/mgNormalThe [facility] HospitalComment on above:Performed By: #### INFLUAB #### [facility] [address] [place] [address] Dr. Deepak GreenfieldAMMONIAon [id number] (P) [Moles/Vol]68 umol/LCritically pmgi82-13Kgv [facility] HospitalComment on above:Performed By: #### BMP #### [facility] [address] [place] [address] Dr. Deepak GossC AUTO DIFFon [id number] #0.0 103/ulNormal0.0-0.1The [facility] HospitalComment on above:Performed By: #### CBC #### [facility] [address] [place] [address] Dr. Deepak GreenfieldBasophils/100 WBC (Bld)0.3 %Normal0.2-2.0The [facility] on above:Performed By: #### CBC #### [facility] [address] [place] [address] Dr. Deepak Boothe #0.0 103/ulNormal0.0-0.7The [facility] HospitalComment on above: Performed By: #### CBC #### [facility] [address] [place] [address] Dr. Deepak Mcallisterosinophils/100 WBC (Bld)0.0 %Critically low0.9-7.0The [facility] on above:Performed By: #### CBC #### [facility] [address] [place] [address] Dr. Deepak Mcallisterrythrocyte distribution width (RBC) [Ratio]13.3 %Vooyce78.0-15.0 The [facility] HospitalComment on above:Performed By: #### CBC #### [facility] [address] [address] [address] Deepak Burlesonatocrit (Bld) [Volume fraction]37.0 %Critically low42.0-54.0 The [facility] HospitalComment on above:Performed By: #### CBC #### [facility] [address] [address] [address] Deepak GreenfieldHemoglobin (Bld) [Mass/Vol]12.3 g/dLCritically low14.0-18.0The [facility] HospitalComment on above:Performed By: #### CBC #### [facility] [address] [place] [address] Dr. Deepak Bahena #0.06 10e3/ulCritically high0.00-0.03The [facility] Comment on above:Performed By: #### CBC #### [facility] [address] [place] [address] Dr. Deepak Bahena %0.5 %Normal0.0-0.5The [facility]ment on above: Performed By: #### CBC #### [facility] [address] [place] [address] Dr. eDepak Dong #2.9 103/ulNormal1.2-3.8The [facility]ment on above:Performed By: #### CBC #### [facility] [address] [place] [address] Dr. Deepak Laumphocytes/100 WBC (Bld)23.5 %Osqlwr59.5-60.0The [facility]ment on above:Performed By: #### CBC #### [facility] [address] [place] [address] Dr. Deepak MendozaUAL DIFF REQNONormalThe [facility] HospitalComment on above: Performed By: #### CBC #### [facility] [address] [place] [address] Dr. Deepak Cadet (RBC) [Entitic mass]32.4 ruEeqoch62.9-34.0The [facility] HospitalComment on above:Performed By: #### CBC #### [facility] [address] [place] [address] Dr. Deepak Schwartz (RBC) [Mass/Vol]33.2 g/eDFvulpl44.9-35.2The [facility] HospitalComment on above:Performed By: #### CBC #### [facility] [address] [place] [address] Dr. Deepak Schwartz (RBC) [Entitic vol]97.4 fLCritically high80.0-94.0The [facility] HospitalComment on above:Performed By: #### CBC #### [facility] [address] [place] [address] Dr. Deepak Morel #1.0 103/ulCritically high0.3-0.8The [facility] Comment on above:Performed By: #### CBC #### [facility] [address] [place] [address] Dr. Deepak Santosocytes/100 WBC (Bld)8.0 %Normal1.7-12.0The [facility] Comment on above:Performed By: #### CBC #### [facility] [address] [place] [address] Dr. Deepak Gifford #8.3 103/ulCritically high1.4-6.5The [facility] Comment on above:Performed By: #### CBC #### [facility] [address] [place] [address] Dr. Deepak Mongeutrophils/100 WBC (Bld)67.7 %Wdrman89.0-75.0The [facility] HospitalComment on above:Performed By: #### CBC #### [facility] [address] [place] [address] Dr. Deepak Stanfordlet mean volume (Bld) [Entitic vol]9.7 fLNormal9.5-13.5The [facility] HospitalComment on above:Performed By: #### CBC #### [facility] [address] [place] [address] Dr. Deepak GreenfieldPLT325 103/xjKfkcmv692-250Dec [facility] HospitalComment on above: Performed By: #### CBC #### [facility] [address] [place] [address] Dr. Deepak GreenfieldRBC3.80 106/ulCritically low4.70-6.10The [facility] HospitalComment on above:Performed By: #### CBC #### [facility] [address] [place] [address] Dr. Deepak GreenfieldWBC12.2 103/ulCritically high4.0-11.0The [facility] HospitalComment on above:Performed By: #### CBC #### [facility] [address] [place] [address] Dr. Deepak Lora BLOODon 12-88-9412Dczlywueeiq examination of blood, cultureCulture Observations: NO GROWTH AT 5 DAYS.NormalThe [facility] HospitalComment on above:Performed By: #### [id number] #### [facility] [address] [place] [address] Dr. Deepak GreenfieldMicroscopic examination of blood, cultureCulture Observations: NO GROWTH AT 5 DAYS.NormalThe [facility] HospitalComment on above:Performed By: #### CBC #### [facility] [address] [place] [address] Dr. Deepak GreenfieldLACTATE/LACTIC ACIDon [id number] [Moles/Vol]2.5 mmol/L Critically high0.4-2.0The [facility] HospitalComment on above:Performed By: #### CVDTBH #### [facility] [address] [place] [address] Dr. Deepak GreenfieldPROF 14(COMP METB)on 43-83-6910Sjkikad [Mass/Vol]3.1 g/dL Critically low3.4-5.0The [facility] HospitalCom[facility] on above:Performed By: #### CBC #### [facility] [address] [place] [address] Dr. Deepak GreenfieldAlbumin/Globulin [Mass ratio]0.7 {ratio}NormalThe [facility] HospitalComment on above:Performed By: #### CBC #### [facility] [address] [address] [address] Deepak Brady [Catalytic activity/Vol]51 U/TLudhnc22-323Dxw [facility] HospitalComment on above:Performed By: #### CBC #### [facility] [address] [address] [address] Deepak ReedT [Catalytic activity/Vol]106 U/LCritically atdi81-38Jwj [facility] HospitalComment on above:Performed By: #### CBC #### [facility] [address] [address] [address] Deepak Decker gap [Moles/Vol]14.2 mmol/LNormalThe [facility] Comment on above:Performed By: #### CBC #### [facility] [address] [address] [address] Deepak GreenfieldAST [Catalytic activity/Vol]81 U/LCritically xoqf05-28Eoa [facility] HospitalComment on above:Performed By: #### CBC #### [facility] [address] [address] [address] Deepak GreenfieldBilirubin [Mass/Vol]0.4 mg/dLNormal0.2-1.0The [facility] Comment on above:Performed By: #### CBC #### [facility] [address] [address] [address] Deepak GreenfieldCalcium [Mass/Vol]8.9 mg/dLNormal8.5-10.1The [facility] Comment on above:Performed By: #### CBC #### [facility] [address] [address] [address] Deepak GreenfieldChloride [Moles/Vol]105 mmol/KHdzfvd49-427Vgv [facility] Comment on above:Performed By: #### CBC #### [facility] [address] [address] [address] Deepak GreenfieldCO2 [Moles/Vol]27.9 mmol/GNsbxsx79.0-32.0The [facility] Comment on above:Performed By: #### CBC #### [facility] [address] [address] [address] Deepak Roseatinine [Mass/Vol]0.77 mg/dLNormal0.70-1.30The [facility] HospitalComment on above:Performed By: #### CBC #### [facility] [address] [address] [address] Deepak McallisterGFR-AF CITIZEN OF [place]>60Normal>=60The [facility] HospitalComment on above:Performed By: #### CBC #### [facility] [address] [address] [address] Deepak McallisterGFR-NON AF CITIZEN OF [place]>60Normal>=60The [facility] HospitalComment on above:Performed By: #### CBC #### [facility] [address] [place] [address] Dr. Deepak GreenfieldGlobulin (S) [Mass/Vol]4.3 g/dLNormalThe [facility] HospitalComment on above:Performed By: #### CBC #### [facility] [address] [place] [address] Dr. Deepak GreenfieldGlucose [Mass/Vol]162 mg/dLCritically ghvd14-248Juc [facility] HospitalComment on above:Performed By: #### CBC #### [facility] [address] [place] [address] Dr. Deepak GreenfieldPotassium [Moles/Vol]4.1 mmol/LNormal3.5-5.1The [facility] Comment on above:Performed By: #### CBC #### [facility] [address] [place] [address] Dr. Deepak GreenfieldProtein [Mass/Vol]7.4 g/dLNormal6.4-8.2The [facility] Comment on above:Performed By: #### CBC #### [facility] [address] [place] [address] Dr. Deepak GreenfieldSodium [Moles/Vol]143 mmol/XSjmpsa469-235Qmb [facility] Comment on above:Performed By: #### CBC #### [facility] [address] [place] [address] Dr. Deepak Murphy nitrogen [Mass/Vol]12.0 mg/dLNormal7.0-18.0The [facility] HospitalComment on above:Performed By: #### CBC #### [facility] [address] [address] [address] Deepak Murphy nitrogen/Creatinine [Mass ratio]15.6 mg/mgNormalThe [facility] HospitalComment on above:Performed By: #### CBC #### [facility] [address] [address] [address] Deepak GreenfieldRESPIRATORY PANEL PLUSon [id number] detectedNormal NOT DETECTEDThe [facility] HospitalComment on above:Performed By: #### BMP #### [facility] [address] [place] [address] Dr. Deepak Olson ParapertusisNot detectedNormalNOT DETECTEDThe [facility] HospitalComment on above:Performed By: #### BMP #### [facility] [address] [place] [address] Dr. Deepak Olson PertussisNot detectedNormalNOT DETECTEDThe [facility] on above:Performed By: #### BMP #### [facility] [address] [place] [address] Dr. Deepak GreenfieldChlamydia PneumoniaeNot detectedNormalNOT DETECTEDThe [facility] HospitalComment on above:Performed By: #### BMP #### [facility] [address] [place] [address] Dr. Deepak GreenfieldCoronavirus 229ENot detectedNormalNOT DETECTEDThe [facility] HospitalComment on above:Performed By: #### BMP #### [facility] [address] [place] [address] Dr. Deepak GreenfieldCoronavirus [id number] detectedNormalNOT DETECTEDThe [facility] HospitalComment on above:Performed By: #### BMP #### [facility] [address] [place] [address] Dr. Deepak GreenfieldCoronavirus SG87Qxg detectedNormalNOT DETECTEDThe [facility] HospitalComment on above:Performed By: #### BMP #### [facility] [address] [address] [address] Deepak GreenfieldCoronavirus CY49Nzo detectedNormalNOT DETECTEDThe [facility] HospitalComment on above:Performed By: #### BMP #### [facility] [address] [address] [address] Deepak Ruiz A H1Not detectedNormalNOT DETECTEDThe [facility] Comment on above:Performed By: #### BMP #### [facility] [address] [address] [address] Deepak Duran H1 2009Not detectedNormalNOT DETECTEDThe [facility] HospitalComment on above:Performed By: #### BMP #### [facility] [address] [address] [address] Deepak Duran H3Not detectedNormalNOT DETECTEDThe [facility] Comment on above:Performed By: #### BMP #### [facility] [address] [address] [address] Deepak Ruiz BNot detectedNormalNOT DETECTEDThe [facility] Comment on above:Performed By: #### BMP #### [facility] [address] [address] [address] Deepak McphersonapneumovirusDetectedAbnormalNOT DETECTEDThe [facility] Comment on above:Performed By: #### BMP #### [facility] [address] [address] [address] Deepak Richardson. PneumoniaeNot detectedNormalNOT DETECTEDThe [facility] HospitalComment on above:Performed By: #### BMP #### [facility] [address] [address] [address] Deepak Bonner 1Not detectedNormalNOT DETECTEDThe [facility] HospitalCom[facility] on above:Performed By: #### BMP #### [facility] [address] [address] [address] Deepak Bonner 2Not detectedNormalNOT DETECTEDThe [facility] HospitalComment on above:Performed By: #### BMP #### [facility] [address] [address] [address] Deepak Bonner 3Not detectedNormalNOT DETECTEDThe [facility] HospitalComment on above:Performed By: #### BMP #### [facility] [address] [place] [address] Dr. Deepak Bonner 4Not detectedNormalNOT DETECTEDThe [facility] HospitalComforest [facility] on above:Performed By: #### BMP #### [facility] [address] [address] [address] Deepak GreenfieldRhelvis/EnterovirusNot detectedNormalNOT DETECTEDThe [facility] HospitalCom[facility] on above:Performed By: #### BMP #### [facility] [address] [place] [address] Dr. Deepak Daniels2 Header 1RESPIRATORY PANEL: [facility]USESMag[facility]uder [facility] on above:Performed By: #### BMP #### [facility] [address] [place] [address] Dr. Deepak Hoyos Header 2RESPIRATORY PANEL: BACTERIANoMercy Health Allen HospitalComment on above:Performed By: #### BMP #### [facility] [address] [place] [address] Dr. Deepak RichterVNot detectedNormalNOT DETECTEDThe [facility] HospitalComforest [facility] on above:Performed By: #### BMP #### [facility] [address] [place] [address] Dr. Deepak Ahn-CoV-2 (COVID-19) RNA CINDY+probe Ql (Unsp spec)Not detected NormalNOT DETECTEDThe [facility] on above:Performed By: #### BMP #### [facility] [address] [place] [address] Dr. Deepak GreenfieldXR CHEST 1 Von [id number] CHEST 1 VONE-VIEW CHEST RADIOGRAPH, 07/28/2022 7:44 [...] Electronically authenticated by: Akua PEREZ Date: 2022-07-28 20:23[facility] HospitalONIAon [id number] (P) [Moles/Vol]76 umol/LCritically tmzk40-32Npu [facility] HospitalComment on above:Performed By: #### MG, CMP #### [facility] [address] [place] [address] Dr. Deepak Brand W MANUAL DIFFon [id number] LYMPH #NormalThe [facility] HospitalComment on above:Performed By: #### MG, CMP #### [facility] [address] [place] [address] Dr. Deepak SouthYPICAL LYMPH %NormalThe [facility] HospitalComment on above: Performed By: #### MG, CMP #### [facility] [address] [place] [address] Dr. Deepak Dow #0.4 103/ulCritically high0.0-0.3The [facility] Comment on above:Performed By: #### MG, CMP #### [facility] [address] [place] [address] Dr. Deepak Dow %4 %Normal0-5The [facility] HospitalComment on above:Performed By: #### MG, CMP #### [facility] [address] [place] [address] Dr. Deepak Farah #0.00 103/ulNormal0.00-0.10The [facility] HospitalComment on above:Performed By: #### MG, CMP #### [facility] [address] [place] [address] Dr. Deepak Farah %0.0 %Critically low0.2-2.0The [facility] HospitalComment on above:Performed By: #### MG, CMP #### [facility] [address] [place] [address] Dr. Deepak Love #NormalThe [facility] HospitalComment on above:Performed By: #### MG, CMP #### [facility] [address] [place] [address] Dr. Deepak Love %NormalThe [facility] HospitalComment on above:Performed By: #### MG, CMP #### [facility] [address] [place] [address] Dr. Deepak GreenfieldCORRECTED WBCNormal4.0-11.0The [facility] HospitalComment on above: Performed By: #### MG, CMP #### [facility] [address] [place] [address] Dr. Deepak Hernandez #0.00 103/ulNormal0.00-0.70The [facility] HospitalComment on above:Performed By: #### MG, CMP #### [facility] [address] [place] [address] Dr. Deepak Hernandez%0.0 %Critically low0.9-7.0The [facility] HospitalComment on above:Performed By: #### MG, CMP #### [facility] [address] [place] [address] Dr. Deepak GreenfieldHCT29.6 %Critically low42.0-54.0The [facility] HospitalComment on above:Performed By: #### MG, CMP #### [facility] [address] [place] [address] Dr. Deepak GreenfieldHGB10.4 g/dlCritically low14.0-18.0The [facility] HospitalComment on above:Performed By: #### MG, CMP #### [facility] [address] [place] [address] Dr. Deepak De Jesus #0.71 103/ulCritically low1.20-3.80The [facility] on above:Performed By: #### MG, CMP #### [facility] [address] [place] [address] Dr. Deepak De Jesus%8.0 %Critically low20.5-60.0The [facility] HospitalComment on above:Performed By: #### MG, CMP #### [facility] [address] [place] [address] Dr. Deepak SchwartzH33.0 rtXkchkx02.9-34.0The [place] HospitalComment on above: Performed By: #### MG, CMP #### [facility] [address] [place] [address] Dr. Deepak SchwartzHC35.1 g/xqMvwsfn16.9-35.2The [facility] HospitalComment on above:Performed By: #### MG, CMP #### [facility] [address] [place] [address] Dr. Deepak SchwartzV94.0 fHArbozp71.0-94.0The [facility] HospitalComment on above: Performed By: #### MG, CMP #### [facility] [address] [place] [address] Dr. Deepak CarmonaELOCYTE #NormalThe [facility] HospitalComment on above: Performed By: #### MG, CMP #### [facility] [address] [place] [address] Dr. Deepak McphersonAMYELOCYTE %NormalThe [facility] HospitalComment on above: Performed By: #### MG, CMP #### [facility] [address] [place] [address] Dr. Deepak Dunn#0.71 103/ulNormal0.30-0.80The [facility] HospitalComment on above:Performed By: #### MG, CMP #### [facility] [address] [place] [address] Dr. Deepak Dunn%8.0 %Normal1.7-12.0The [facility] HospitalComment on above: Performed By: #### MG, CMP #### [facility] [address] [place] [address] Dr. Deepak NavaV9.6 fLNormal9.5-13.5The [facility] HospitalComment on above: Performed By: #### MG, CMP #### [facility] [address] [place] [address] Dr. Deepak Sargent #NormalThe [facility] [place] HospitalComment on above:Performed By: #### MG, CMP #### [facility] [address] [place] [address] Dr. Deepak GutierrezOCYTE %NormalThe [facility] [place] HospitalComment on above:Performed By: #### MG, CMP #### [facility] [address] [address] [address] Deepak NewellBCNormalThe [facility] HospitalComment on above:Performed By: #### MG, CMP #### [facility] [address] [place] [address] Dr. Deepak GomezT267 103/rkLsoelv266-461Xck [facility] HospitalComment on above: Performed By: #### MG, CMP #### [facility] [address] [place] [address] Dr. Deepak GreenfeildRBC3.15 106/ulCritically low4.70-6.10The [facility] HospitalComment on above:Performed By: #### MG, CMP #### [facility] [address] [place] [address] Dr. Deepak GreenfieldRDW12.9 %Yhbbjg92.0-15.0The [facility] HospitalComment on above: Performed By: #### MG, CMP #### [facility] [address] [place] [address] Dr. Deepak Soto #7.12 103/ulCritically high1.40-6.50The [facility] Comment on above:Performed By: #### MG, CMP #### [facility] [address] [place] [address] Dr. Deepak Soto %80.0 %Critically high43.0-75.0The [facility] HospitalComment on above:Performed By: #### MG, CMP #### [facility] [address] [place] [address] Dr. Deepak GreenfieldWBC8.9 103/ulNormal4.0-11.0The [facility] HospitalComment on above: Performed By: #### MG, CMP #### [facility] [address] [address] [address] Deepak EllisonF CHEM 8 (BAS METB)on [id number] gap [Moles/Vol]12.4 mmol/LNormalThe [facility] HospitalComment on above:Performed By: #### CBC #### [facility] [address] [place] [address] Dr. Deepak GreenfieldCalcium [Mass/Vol]8.2 mg/dLCritically low8.5-10.1The [facility] HospitalComment on above:Performed By: #### CBC #### [facility] [address] [place] [address] Dr. Deepak GreenfieldChloride [Moles/Vol]101 mmol/AZikrjx50-641Prh [facility] Comment on above:Performed By: #### CBC #### [facility] [address] [place] [address] Dr. Deepak GreenfieldCO2 [Moles/Vol]25.0 mmol/SQbcgri11.0-32.0The [facility] Comment on above:Performed By: #### CBC #### [facility] [address] [place] [address] Dr. Deepak GreenfieldCreatinine [Mass/Vol]0.53 mg/dLCritically low0.70-1.30The [facility] HospitalComment on above:Performed By: #### CBC #### [facility] [address] [place] [address] Dr. Deepak McallisterGFR-AF CITIZEN OF [place]>60Normal>=60The [facility] HospitalComment on above:Performed By: #### CBC #### [facility] [address] [place] [address] Dr. Deepak McallisterGFR-NON AF CITIZEN OF [place]>60Normal>=60The [facility] HospitalComment on above:Performed By: #### CBC #### [facility] [address] [place] [address] Dr. Deepak GreenfieldGlucose [Mass/Vol]161 mg/dLCritically mwbc88-311Ktd [facility] HospitalComment on above:Performed By: #### CBC #### [facility] [address] [address] [address] Deepak GreenfieldPotassium [Moles/Vol]4.4 mmol/LNormal3.5-5.1The [facility] Comment on above:Performed By: #### CBC #### [facility] [address] [address] [address] Deepak Fangdium [Moles/Vol]134 mmol/LCritically hwm860-747Uli [facility] HospitalComment on above:Performed By: #### CBC #### [facility] [address] [place] [address] Dr. Deepak GreenfieldUrea nitrogen [Mass/Vol]13.0 mg/dLNormal7.0-18.0The [facility] HospitalComment on above:Performed By: #### CBC #### [facility] [address] [place] [address] Dr. Deepak Murphy nitrogen/Creatinine [Mass ratio]24.5 mg/mgNormalThe [facility] HospitalComment on above:Performed By: #### CBC #### [facility] [address] [place] [address] Dr. Deepak WashburnONIAvanita [id number] (P) [Moles/Vol]56 umol/LCritically rtuw20-58Auw [facility] HospitalComment on above:Performed By: #### MG, CMP #### [facility] [address] [place] [address] Dr. Deepak Silva BEATRIS ADMITon [id number] [Catalytic activity/Vol]83 U/L Pckzhm10-690Ska [facility] HospitalComment on above:Performed By: #### BMP #### [facility] [address] [place] [address] Dr. Deepak Julian.MB [Mass/Vol]0.86 ng/mLNormal<=3.60The [facility] Comment on above:Performed By: #### BMP #### [facility] [address] [place] [address] Dr. Deepak GreenfieldHSTROP7.4 pg/mLNormal4.0-76.1[facility] on above:Result Comment: CUT-OFF POINTS HAVE BEEN ESTABLISHED BASED ON THE FOURTH UNIVERSAL DEFINITIONS OF MYOCARDIAL INFARCTION. THE UPPER REFERENCE LIMIT (URL) OF TROPONIN, DEFINED THE 99TH PERCENTILE OF cTnI DISTRIBUTION IN A REFERENCE POPULATION, HAS BEEN CONFIRMED THE DECISION THRESHOLD FOR WI DIAGNOSIS.Performed By: #### BMP #### [facility] [address] [place] [address] Dr. Deepak GreenfieldMYO46 ng/cLTlywna42-86Otk [facility] HospitalComment on above: Performed By: #### BMP #### [facility] [address] [place] [address] Dr. Deepak Brand AUTO DIFFon [id number] #0.1 103/ulNormal0.0-0.1The [facility] HospitalComment on above:Performed By: #### MG, CMP #### [facility] [address] [place] [address] Dr. Deepak GreenfieldBasophils/100 WBC (Bld)0.5 %Normal0.2-2.0[facility] Comment on above:Performed By: #### MG, CMP #### [facility] [address] [place] [address] Dr. Deepak Boothe #0.2 103/ulNormal0.0-0.7The [facility] HospitalComment on above: Performed By: #### MG, CMP #### [facility] [address] [place] [address] Dr. Deepak Mcallisterosinophils/100 WBC (Bld)2.1 %Normal0.9-7.0The [facility] Comment on above:Performed By: #### MG, CMP #### [facility] [address] [place] [address] Dr. Deepak Mcallisterrythrocyte distribution width (RBC) [Ratio]13.2 %Twunvl81.0-15.0 The [facility] [place] HospitalComment on above:Performed By: #### MG, CMP #### [facility] [address] [place] [address] Dr. Deepak GreenfieldHematocrit (Bld) [Volume fraction]36.7 %Critically low42.0-54.0 The [facility] [place] HospitalComment on above:Performed By: #### MG, CMP #### [facility] [address] [place] [address] Dr. Deepak GreenfieldHemoglobin (Bld) [Mass/Vol]12.4 g/dLCritically low14.0-18.0The [facility] HospitalComment on above:Performed By: #### MG, CMP #### [facility] [address] [place] [address] Dr. Deepak Bahena #0.04 10e3/ulCritically high0.00-0.03The [facility] Comment on above:Performed By: #### MG, CMP #### [facility] [address] [place] [address] Dr. Deepak Bahena %0.4 %Normal0.0-0.5The [facility] HospitalComment on above: Performed By: #### MG, CMP #### [facility] [address] [place] [address] Dr. Deepak Dong #1.7 103/ulNormal1.2-3.8The [facility] HospitalComment on above:Performed By: #### MG, CMP #### [facility] [address] [place] [address] Dr. Deepak Ricardohocytes/100 WBC (Bld)15.6 %Critically low20.5-60.0The [facility] HospitalComment on above:Performed By: #### MG, CMP #### [facility] [address] [place] [address] Dr. Deepak MendozaUAL DIFF REQNONormalThe [facility] HospitalComment on above: Performed By: #### MG, CMP #### [facility] [address] [place] [address] Dr. Deepak Cadet (RBC) [Entitic mass]32.5 wdVbgxhx40.9-34.0The [facility] HospitalComment on above:Performed By: #### MG, CMP #### [facility] [address] [place] [address] Dr. Deepak Schwartz (RBC) [Mass/Vol]33.8 g/jVSyxdwz10.9-35.2The [facility] HospitalComment on above:Performed By: #### MG, CMP #### [facility] [address] [place] [address] Dr. Deepak Flores (RBC) [Entitic vol]96.3 fLCritically high80.0-94.0The [facility] HospitalComment on above:Performed By: #### MG, CMP #### [facility] [address] [place] [address] Dr. Deepak Morel #1.4 103/ulCritically high0.3-0.8The [facility] Comment on above:Performed By: #### MG, CMP #### [facility] [address] [place] [address] Dr. Deepak Santosocytes/100 WBC (Bld)12.8 %Critically high1.7-12.0The [facility] HospitalComment on above:Performed By: #### MG, CMP #### [facility] [address] [place] [address] Dr. Deepak Gifford #7.4 103/ulCritically high1.4-6.5The [facility] Comment on above:Performed By: #### MG, CMP #### [facility] [address] [place] [address] Dr. Deepak Mongeutrophils/100 WBC (Bld)68.6 %Phhfje46.0-75.0The [facility] HospitalComment on above:Performed By: #### MG, CMP #### [facility] [address] [place] [address] Dr. Deepak Huffman mean volume (Bld) [Entitic vol]9.5 fLNormal9.5-13.5The [facility] HospitalComment on above:Performed By: #### MG, CMP #### [facility] [address] [place] [address] Dr. Deepak GreenfieldPLT314 103/hcMzjoqq903-760Pcs [facility] HospitalComment on above: Performed By: #### MG, CMP #### [facility] [address] [place] [address] Dr. Deepak GreenfieldRBC3.81 106/ulCritically low4.70-6.10The [facility] HospitalComment on above:Performed By: #### MG, CMP #### [facility] [address] [place] [address] Dr. Deepak GreenfieldWBC10.8 103/ulNormal4.0-11.0The [facility] HospitalComment on above:Performed By: #### MG, CMP #### [facility] [address] [place] [address] Dr. Deepak Peña-19 PCR (CVDTBH)on [id number]-CoV-2 (COVID-19) RNA CINDY+probe Ql (Unsp spec)Not detectedNormalNOT DETECTEDThe [facility] Comment on above:Result Comment: When diagnostic testing [...] for this test is supported by the [place] of Health and Human Service's declaration that [...] longer be used).Performed By: #### CVDTBH #### [facility] [address] [place] [address] Dr. Deepak PIPER AGon [id number] [facility] Hospitalment on above:Result Comment: Negative for Flu A protein angiten. Infection due to Flu A cannot be ruled out. FluA angiten in the sample may be below the detection limit of the test.Performed By: #### INFLUAB #### [facility] [address] [place] [address] Dr. Deepak KhalilUBNEGHSNATACHA [facility] on above: Result Comment: Negative for Flu B protein antigen. Infection due to Flu B cannot be ruled out. FluB antigen in the sample may be below the detection limit of the test.Performed By: #### INFLUAB #### [facility] [address] [place] [address] Dr. Deepak Ruiz A AGNegativeNormalNEGATIVE SEE COMMENTThe [facility] on above:Performed By: #### INFLUAB #### [facility] [address] [place] [address] Dr. Deepak Ruiz B AGNegativeNormalNEGATIVE SEE COMMENTThe [facility] on above:Performed By: #### INFLUAB #### [facility] [address] [place] [address] Dr. Deepak GreenfieldLACTATE/LACTIC ACIDon [id number] [Moles/Vol]1.2 mmol/L Normal0.4-2.0The [facility] on above:Performed By: #### MG, CMP #### [facility] [address] [place] [address] Dr. Deepak GrenefieldPROF 14(COMP METB)on [id number] [Mass/Vol]3.3 g/dL Critically low3.4-5.0The [facility] on above:Performed By: #### BMP #### [facility] [address] [place] [address] Dr. Deepak GreenfieldAlbumin/Globulin [Mass ratio]0.8 {ratio}NormalThe [facility] on above:Performed By: #### BMP #### [facility] [address] [address] [address] Deepak ReedP [Catalytic activity/Vol]45 U/LCritically zhi62-520Ekh [facility] HospitalComment on above:Performed By: #### BMP #### [facility] [address] [address] [address] Deepak ReedT [Catalytic activity/Vol]114 U/LCritically gsrq69-82Srt [facility] HospitalComment on above:Performed By: #### BMP #### [facility] [address] [address] [address] Deepak Decker gap [Moles/Vol]14.5 mmol/LNormalThe [facility] Comment on above:Performed By: #### BMP #### [facility] [address] [address] [address] Deepak GreenfieldAST [Catalytic activity/Vol]71 U/LCritically xiqr20-55Uht [facility] HospitalComment on above:Performed By: #### BMP #### [facility] [address] [address] [address] Deepak GreenfieldBilirubin [Mass/Vol]0.7 mg/dLNormal0.2-1.0The [facility] Comment on above:Performed By: #### BMP #### [facility] [address] [address] [address] Deepak GreenfieldCalcium [Mass/Vol]9.1 mg/dLNormal8.5-10.1The [facility] Comment on above:Performed By: #### BMP #### [facility] [address] [address] [address] Deepak GreenfieldChloride [Moles/Vol]98 mmol/UWounrt66-119Ckj [facility] Comment on above:Performed By: #### BMP #### [facility] [address] [address] [address] Deepak GreenfieldCO2 [Moles/Vol]27.4 mmol/HCetjuv12.0-32.0The [facility] Comment on above:Performed By: #### BMP #### [facility] [address] [place] [address] Dr. Deepak GreenfieldCreatinine [Mass/Vol]0.65 mg/dLCritically low0.70-1.30The [facility] HospitalComment on above:Performed By: #### BMP #### [facility] [address] [place] [address] Dr. Deepak McallisterGFR-AF CITIZEN OF [place]>60Normal>=60The [facility] HospitalComment on above:Performed By: #### BMP #### [facility] [address] [place] [address] Dr. Deepak McallisterGFR-NON AF CITIZEN OF [place]>60Normal>=60The [facility] HospitalComment on above:Performed By: #### BMP #### [facility] [address] [place] [address] Dr. Deepak GreenfieldGlobulin (S) [Mass/Vol]4.2 g/dLNormalThe [facility]iffin HospitalComment on above:Performed By: #### BMP #### [facility] [address] [place] [address] Dr. Deepak GreenfieldGlucose [Mass/Vol]105 mg/kBBrkcjy18-410SdvCleveland Clinic Foundation Comment on above:Performed By: #### BMP #### [facility] [address] [place] [address] Dr. Deepak GreenfieldPotassium [Moles/Vol]3.9 mmol/LNormal3.5-5.1[facility] Comment on above:Performed By: #### BMP #### [facility] [address] [place] [address] Dr. Deepak GreenfieldProtein [Mass/Vol]7.5 g/dLNormal6.4-8.2[facility] Comment on above:Performed By: #### BMP #### [facility] [address] [place] [address] Dr. Deepak GreenfieldSodium [Moles/Vol]136 mmol/YEmfwfm286-793HumCleveland Clinic Foundation Comment on above:Performed By: #### BMP #### [facility] [address] [place] [address] Dr. Yilan ChangUrea nitrogen [Mass/Vol]13.0 mg/dLNormal7.0-18.0[facility] FoundationComment on above:Performed By: #### BMP #### [facility] [address] [address] [address] Deepak Murphy nitrogen/Creatinine [Mass ratio]20.0 mg/mgNoMercy Health Allen HospitalComment on above:Performed By: #### BMP #### [facility] [address] [address] [address] Deepak GreenfieldXR CHEST 1 Von 23-10-1823GY CHEST 1 VEXAM: Chest x-ray HISTORY: . [...] Electronically authenticated by: ANICETO GARCIA Date: 2022-07-26 12:27[facility] CenterConsent for Treatmenton [id number] for Treatment [id number]#1.00CD:127[facility] CenterPhysician Orderon 90-80-3450Jeakwxscy Order [id number]#1.00CD:127[facility] CenterXR Adult Swallowing Function w/ Videoon 52-90-7030KI Adult Swallowing Function w/ VideoExam Date/Time: 07/23/2022 [...] Kar in mGy = 11.70 DAP = 270.92[facility]'s Medical CenterAMMONIAon 31-19-7491Rzxaysp (P) [Moles/Vol]112 umol/LCritically cytq46-18Iez [facility] HospitalComment on above: Performed By: #### AMM #### [facility] [address] [place] [address] Dr. Deepak AguileraPAKENE/ VALPROIC ACIDon 12-99-7199XHYXBONJ32.0 ug/mlNormal 50.0-100.0The [facility] HospitalComment on above:Performed By: #### CBC #### [facility] [address] [place] [address] Dr. Deepak Smith PROFILEon 84-31-2528Dnbvutb [Mass/Vol]3.6 g/dLNormal3.4-5.0 The [facility] HospitalComment on above:Performed By: #### CBC #### [facility] [address] [place] [address] Dr. Deepak GreenfieldAlbumin/Globulin [Mass ratio]0.9 {ratio}NormalThe [facility]iffin HospitalComment on above:Performed By: #### CBC #### [facility] [address] [place] [address] Dr. Deepak GreenfieldALP [Catalytic activity/Vol]55 U/SZvxnxe74-459Mgb [facility] Hospitalment on above:Performed By: #### CBC #### [facility] [address] [address] [address] Deepak Mack [Catalytic activity/Vol]76 U/LCritically gwdr57-88Tno Park[facility] Hospitalment on above:Performed By: #### CBC #### [facility] [address] [address] [address] Deepak Mcgee [Catalytic activity/Vol]51 U/LCritically qcjs05-44Sqc [facility] HospitalComment on above:Performed By: #### CBC #### [facility] [address] [address] [address] Deepak LynnI, CONJUGATED0.1 mg/dLNormal0.0-0.2The [facility] Comment on above:Performed By: #### CBC #### [facility] [address] [place] [address] Dr. Deepak Lynnirubin [Mass/Vol]0.4 mg/dLNormal0.2-1.0The [facility] Comment on above:Performed By: #### CBC #### [facility] [address] [address] [address] Deepak GreenfieldGlobulin (S) [Mass/Vol]4.1 g/dLNormalThe [facility] HospitalComforest health medical center on above:Performed By: #### CBC #### [facility] [address] [address] [address] Deepak GreenfieldProtein [Mass/Vol]7.7 g/dLNormal6.4-8.2The [facility] Comment on above:Performed By: #### CBC #### [facility] [address] [address] [address] Deepak GreenfieldAMMONIAon 55-36-9990Ykwcwcj (P) [Moles/Vol]108 umol/LCritically bjtc70-23Euy [facility] HospitalComment on above:Performed By: #### BMP #### [facility] [address] [place] [address] Dr. Deepak GossC AUTO DIFFon 30-17-5127RHNW #0.0 103/ulNormal0.0-0.1The [facility] HospitalComment on above:Performed By: #### CBC #### [facility] [address] [place] [address] Dr. Deepak Mtzsophils/100 WBC (Bld)0.5 %Normal0.2-2.0[facility] Comment on above:Performed By: #### CBC #### [facility] [address] [place] [address] Dr. Deepak Boothe #0.1 103/ulNormal0.0-0.7The [facility] HospitalComment on above: Performed By: #### CBC #### [facility] [address] [place] [address] Dr. Deepak Mcallisterosinophils/100 WBC (Bld)1.4 %Normal0.9-7.0The [facility] Comment on above:Performed By: #### CBC #### [facility] [address] [place] [address] Dr. Deepak Mcallisterrythrocyte distribution width (RBC) [Ratio]14.2 %Csngpv92.0-15.0 [facility] FoundationComment on above:Performed By: #### CBC #### [facility] [address] [place] [address] Dr. Deepak Burlesonatocrit (Bld) [Volume fraction]37.0 %Critically low42.0-54.0 [facility] FoundationComment on above:Performed By: #### CBC #### [facility] [address] [place] [address] Dr. Deepak GreenfieldHemoglobin (Bld) [Mass/Vol]12.3 g/dLCritically low14.0-18.0[facility] FoundationComment on above:Performed By: #### CBC #### [facility] [address] [place] [address] Dr. Deepak Bahena #0.00 10e3/ulNormal0.00-0.03The [facility] HospitalComment on above:Performed By: #### CBC #### [facility] [address] [place] [address] Dr. Deepak Bahena %0.0 %Normal0.0-0.5The [facility] HospitalComment on above: Performed By: #### CBC #### [facility] [address] [place] [address] Dr. Deepak Dong #3.3 103/ulNormal1.2-3.8The [facility] HospitalComment on above:Performed By: #### CBC #### [facility] [address] [place] [address] Dr. Deepak Ricardohocytes/100 WBC (Bld)51.5 %Ozjwec17.5-60.0The [facility] HospitalComment on above:Performed By: #### CBC #### [facility] [address] [place] [address] Dr. Deepak Durham DIFF REQNONormalThe [facility] HospitalComment on above: Performed By: #### CBC #### [facility] [address] [place] [address] Dr. Deepak Cadet (RBC) [Entitic mass]32.2 pcHyprja47.9-34.0The [facility] HospitalComment on above:Performed By: #### CBC #### [facility] [address] [place] [address] Dr. Deepak Schwartz (RBC) [Mass/Vol]33.2 g/cKEtoikm49.9-35.2The [facility] HospitalComment on above:Performed By: #### CBC #### [facility] [address] [place] [address] Dr. Deepak Schwartz (RBC) [Entitic vol]96.9 fLCritically high80.0-94.0The [facility] HospitalComment on above:Performed By: #### CBC #### [facility] [address] [place] [address] Dr. Deepak Morel #0.6 103/ulNormal0.3-0.8The [facility] HospitalComment on above:Performed By: #### CBC #### [facility] [address] [place] [address] Dr. Deepak Santosocytes/100 WBC (Bld)9.7 %Normal1.7-12.0The [facility] Comment on above:Performed By: #### CBC #### [facility] [address] [place] [address] Dr. Deepak MongeUT #2.4 103/ulNormal1.4-6.5The [facility] HospitalComment on above:Performed By: #### CBC #### [facility] [address] [place] [address] Dr. Deepak Mongeutrophils/100 WBC (Bld)36.9 %Critically low43.0-75.0The [facility] HospitalComment on above:Performed By: #### CBC #### [facility] [address] [place] [address] Dr. Deepak GreenfieldPlatelet mean volume (Bld) [Entitic vol]10.2 fLNormal9.5-13.5The [facility] HospitalComment on above:Performed By: #### CBC #### [facility] [address] [place] [address] Dr. Deepak GreenfieldPLT248 103/rfRrtlcl134-873Duu [facility] HospitalComment on above: Performed By: #### CBC #### [facility] [address] [place] [address] Dr. Deepak GreenfieldRBC3.82 106/ulCritically low4.70-6.10The [facility] HospitalComment on above:Performed By: #### CBC #### [facility] [address] [place] [address] Dr. Deepak GreenfieldWBC6.5 103/ulNormal4.0-11.0The [facility] HospitalComment on above: Performed By: #### CBC #### [facility] [address] [place] [address] Dr. Deepak GreenfieldFERRITINon 04-49-5682Wdhqaujm [Mass/Vol]152.0 ng/mLNormal 26.0-388.0The [facility] HospitalComment on above:Performed By: #### MG, CMP #### [facility] [address] [place] [address] Dr. Deepak GreenfieldIRONon 09-11-2905Nzus [Mass/Vol]136.0 ug/dLGdijna34.0-175.0The [facility] HospitalComment on above:Performed By: #### MG, CMP #### [facility] [address] [place] [address] Dr. Deepak GreenfieldMAGNESIUMon 27-73-2881Mrdrmhjts [Mass/Vol]1.6 mg/dLCritically low 1.8-2.4The [facility] HospitalComment on above:Performed By: #### INFLUAB #### [facility] [address] [place] [address] Dr. Deepak GreenfieldVITAMIN B12on 50-75-3684Aoyjhmcge (Vitamin B12) [Mass/Vol]545.0 pg/vZVzumwf243.0-986.0The [facility] HospitalComment on above:Performed By: #### MG, CMP #### [facility] [address] [place] [address] Dr. Deepak GreenfieldCBC AUTO DIFFon 08-07-8653EHLO #0.0 103/ulNormal0.0-0.1The [facility] HospitalComment on above:Performed By: #### MG, CMP #### [facility] [address] [place] [address] Dr. Deepak GreenfieldBasophils/100 WBC (Bld)0.5 %Normal0.2-2.0The [facility] Comment on above:Performed By: #### MG, CMP #### [facility] [address] [place] [address] Dr. Sotelo ChangEO #0.2 103/ulNormal0.0-0.7The [facility] HospitalComment on above: Performed By: #### MG, CMP #### [facility] [address] [place] [address] Dr. Deepak Mcallisterosinophils/100 WBC (Bld)2.0 %Normal0.9-7.0The [facility] Comment on above:Performed By: #### MG, CMP #### [facility] [address] [place] [address] Dr. Deepak Mcallisterrythrocyte distribution width (RBC) [Ratio]13.5 %Lgzggs60.0-15.0 [facility] on above:Performed By: #### MG, CMP #### [facility] [address] [place] [address] Dr. Deepak GreenfieldHematocrit (Bld) [Volume fraction]38.5 %Critically low42.0-54.0 The [facility] HospitalComforest health medical center on above:Performed By: #### MG, CMP #### [facility] [address] [place] [address] Dr. Deepak GreenfieldHemoglobin (Bld) [Mass/Vol]12.6 g/dLCritically low14.0-18.0[facility] on above:Performed By: #### MG, CMP #### [facility] [address] [place] [address] Dr. Deepak Bahena #0.02 10e3/ulNormal0.00-0.03The [facility] on above:Performed By: #### MG, CMP #### [facility] [address] [place] [address] Dr. Deepak Bahena %0.2 %Normal0.0-0.5The [facility] on above: Performed By: #### MG, CMP #### [facility] [address] [place] [address] Dr. Deepak Dong #3.1 103/ulNormal1.2-3.8The [facility] on above:Performed By: #### MG, CMP #### [facility] [address] [place] [address] Dr. Deepak Ricardohocytes/100 WBC (Bld)36.2 %Qwsggi46.5-60.0The [facility] on above:Performed By: #### MG, CMP #### [facility] [address] [place] [address] Dr. Deepak MendozaUAL DIFF REQNONormalThe [facility] HospitalComment on above: Performed By: #### MG, CMP #### [facility] [address] [place] [address] Dr. Deepak Schwartz (RBC) [Entitic mass]32.1 awZbdizc27.9-34.0The [facility] HospitalComment on above:Performed By: #### MG, CMP #### [facility] [address] [place] [address] Dr. Deepak Schwartz (RBC) [Mass/Vol]32.7 g/bMAedvgl62.9-35.2The [facility] HospitalComment on above:Performed By: #### MG, CMP #### [facility] [address] [place] [address] Dr. Deepak Flores (RBC) [Entitic vol]98.0 fLCritically high80.0-94.0The [facility] HospitalComment on above:Performed By: #### MG, CMP #### [facility] [address] [place] [address] Dr. Deepak Morel #0.9 103/ulCritically high0.3-0.8The [facility] Comment on above:Performed By: #### MG, CMP #### [facility] [address] [place] [address] Dr. Deepak Santosocytes/100 WBC (Bld)10.6 %Normal1.7-12.0[facility] Comment on above:Performed By: #### MG, CMP #### [facility] [address] [place] [address] Dr. Deepak Gifford #4.3 103/ulNormal1.4-6.5The [facility] HospitalComment on above:Performed By: #### MG, CMP #### [facility] [address] [place] [address] Dr. Deepak Makophils/100 WBC (Bld)50.5 %Gcqjhi02.0-75.0The [facility] HospitalComment on above:Performed By: #### MG, CMP #### [facility] [address] [place] [address] Dr. Deepak Huffman mean volume (Bld) [Entitic vol]9.9 fLNormal9.5-13.5The [facility] HospitalComment on above:Performed By: #### MG, CMP #### [facility] [address] [place] [address] Dr. Deepak GreenfieldPLT263 103/knVgulpe502-045Vfa [facility] HospitalComment on above: Performed By: #### MG, CMP #### [facility] [address] [place] [address] Dr. Deepak GreenfieldRBC3.93 106/ulCritically low4.70-6.10The [facility] HospitalComment on above:Performed By: #### MG, CMP #### [facility] [address] [place] [address] Dr. Deepak GreenfieldWBC8.6 103/ulNormal4.0-11.0The [facility] HospitalComment on above: Performed By: #### MG, CMP #### [facility] [address] [place] [address] Dr. Deepak GreenfieldMAGNESIUMon 67-71-0088Djgyfgxbc [Mass/Vol]1.5 mg/dLCritically low 1.8-2.4The [facility] HospitalComforest health medical center on above:Performed By: #### MG, CMP #### [facility] [address] [place] [address] Dr. Deepak GreenfieldPROF 14(COMP METB)on 21-76-3484Hwrblyj [Mass/Vol]3.4 g/dLNormal 3.4-5.0The [facility] HospitalComment on above:Performed By: #### MG, CMP #### [facility] [address] [place] [address] Dr. Deepak GreenfieldAlbumin/Globulin [Mass ratio]0.9 {ratio}NormalThe [facility] HospitalComment on above:Performed By: #### MG, CMP #### [facility] [address] [place] [address] Dr. Deepak Brady [Catalytic activity/Vol]47 U/GAfklfx99-316Hms [facility] HospitalComment on above:Performed By: #### MG, CMP #### [facility] [address] [address] [address] Deepak Mack [Catalytic activity/Vol]48 U/ZBrqdop71-70Awc [facility] HospitalComment on above:Performed By: #### MG, CMP #### [facility] [address] [address] [address] Deepak Fischeron gap [Moles/Vol]9.5 mmol/LNormalThe [facility] HospitalComment on above:Performed By: #### MG, CMP #### [facility] [address] [address] [address] Deepak Mcgee [Catalytic activity/Vol]30 U/LBqkykh62-32Fnp [facility] HospitalComment on above:Performed By: #### MG, CMP #### [facility] [address] [place] [address] Dr. Deepak GreenfieldBilirubin [Mass/Vol]0.2 mg/dLNormal0.2-1.0The [facility] Comment on above:Performed By: #### MG, CMP #### [facility] [address] [place] [address] Dr. Deepak GreenfieldCalcium [Mass/Vol]8.7 mg/dLNormal8.5-10.1[facility] Comment on above:Performed By: #### MG, CMP #### [facility] [address] [place] [address] Dr. Deepak GreenfieldChloride [Moles/Vol]105 mmol/BUjizlz55-124Odq [facility] Comment on above:Performed By: #### MG, CMP #### [facility] [address] [address] [address] Deepak GreenfieldCO2 [Moles/Vol]32.6 mmol/LCritically high21.0-32.0The [facility] HospitalComment on above:Performed By: #### MG, CMP #### [facility] [address] [place] [address] Dr. Deepak GreenfieldCreatinine [Mass/Vol]0.70 mg/dLNormal0.70-1.30The [facility] HospitalComment on above:Performed By: #### MG, CMP #### [facility] [address] [place] [address] Dr. Deepak McallisterGFR-AF CITIZEN OF [place]>60Normal>=60The [facility] HospitalComment on above:Performed By: #### MG, CMP #### [facility] [address] [place] [address] Dr. Deepak McallisterGFR-NON AF CITIZEN OF [place]>60Normal>=60[facility] FoundationComment on above:Performed By: #### MG, CMP #### [facility] [address] [place] [address] Dr. Deepak GreenfieldGlobulin (S) [Mass/Vol]3.8 g/dLNormalThe [facility] HospitalComment on above:Performed By: #### MG, CMP #### [facility] [address] [place] [address] Dr. Deepak GreenfieldGlucose [Mass/Vol]98 mg/qWPppxza37-919PjaC[facility] Clinic Foundation Comment on above:Performed By: #### MG, CMP #### [facility] [address] [place] [address] Dr. Deepak GreenfieldPotassium [Moles/Vol]4.1 mmol/LNormal3.5-5.1[facility] Comment on above:Performed By: #### MG, CMP #### [facility] [address] [place] [address] Dr. Deepak GreenfieldProtein [Mass/Vol]7.2 g/dLNormal6.4-8.2[facility] Comment on above:Performed By: #### MG, CMP #### [facility] [address] [place] [address] Dr. Deepak GreenfieldSodium [Moles/Vol]143 mmol/ETemsjc741-721AhpC[facility] Clinic Foundation Comment on above:Performed By: #### MG, CMP #### [facility] [address] [place] [address] Dr. Deepak GreenfieldUrea nitrogen [Mass/Vol]10.0 mg/dLNormal7.0-18.0The [facility] HospitalComment on above:Performed By: #### MG, CMP #### [facility] [address] [place] [address] Dr. Deepak Murphy nitrogen/Creatinine [Mass ratio]14.3 mg/mgNoMercy Health Allen HospitalComment on above:Performed By: #### MG, CMP #### [facility] [address] [place] [address] Dr. Deepak GreenfieldVITAMIN D 25 OHon 52-20-4553XNP D 25-OH67.5 ng/mLNormalThe [facility] HospitalComment on above:Performed By: #### MG, CMP #### [facility] [address] [place] [address] Dr. Deepak Serna [place]ANGES[place] BELOWDayton VA Medical CenterComment on above: Result Comment: <20 ng/mL Vit D deficient 20 - <30 ng/mL Vit D insufficient 30 - 100 ng/mL Vit D sufficient >100 ng/mL Potential ToxicityPerformed By: #### MG, CMP #### [facility] [address] [place] [address] Dr. Deepak Blounton 87-82-9678Zwjrktw (P) [Moles/Vol]36 umol/LCritically ndng20-49Hvy [facility] HospitalComment on above:Performed By: #### CBC #### [facility] [address] [place] [address] Dr. Deepak Stein/ VALPROIC ACIDon 98-15-3233UGEJFFZK93.5 ug/mlNormal 50.0-100.0The [facility] HospitalComment on above:Performed By: #### BMP #### [facility] [address] [place] [address] Dr. Deepak Infante 59-03-1487Zzajfwtroit peptide B (Bld) [Mass/Vol]183.0 pg/mL Normal<=450.0The [facility] HospitalComment on above:Performed By: #### MG, CMP #### [facility] [address] [place] [address] Dr. Deepak Brand AUTO DIFFon 21-24-0874LWIL #0.0 103/ulNormal0.0-0.1The [facility] HospitalComment on above:Performed By: #### CVDTBH #### [facility] [address] [place] [address] Dr. Deepak GreenfieldBasophils/100 WBC (Bld)0.3 %Normal0.2-2.0[facility] Comment on above:Performed By: #### CVDTBH #### [facility] [address] [place] [address] Dr. Deepak Boothe #0.1 103/ulNormal0.0-0.7The [facility] HospitalComment on above: Performed By: #### CVDTBH #### [facility] [address] [place] [address] Dr. Deepak Mcallisterosinophils/100 WBC (Bld)0.4 %Critically low0.9-7.0The [facility] HospitalComment on above:Performed By: #### CVDTBH #### [facility] [address] [place] [address] Dr. Deepak Mcallisterrythrocyte distribution width (RBC) [Ratio]13.6 %Yckiht83.0-15.0 [facility] Hospitalment on above:Performed By: #### CVDTBH #### [facility] [address] [place] [address] Dr. Deepak GreenfieldHematocrit (Bld) [Volume fraction]39.3 %Critically low42.0-54.0 [facility] Hospitalment on above:Performed By: #### CVDTBH #### [facility] [address] [place] [address] Dr. Deepak GreenfieldHemoglobin (Bld) [Mass/Vol]12.6 g/dLCritically low14.0-18.0[facility] Hospitalment on above:Performed By: #### CVDTBH #### [facility] [address] [place] [address] Dr. Deepak Bahena #0.04 10e3/ulCritically high0.00-0.03The [facility] Comment on above:Performed By: #### CVDTBH #### [facility] [address] [place] [address] Dr. Deepak Bahena %0.3 %Normal0.0-0.5The [facility] HospitalComment on above: Performed By: #### CVDTBH #### [facility] [address] [place] [address] Dr. Deepak Dong #2.4 103/ulNormal1.2-3.8The [facility] HospitalComment on above:Performed By: #### CVDTBH #### [facility] [address] [place] [address] Dr. Deepak Ricardohocytes/100 WBC (Bld)16.6 %Critically low20.5-60.0The [facility] HospitalComment on above:Performed By: #### LUCTBH #### [facility] [address] [place] [address] Dr. Deepak MendozaUAL DIFF REQNONormalThe [facility] HospitalComment on above: Performed By: #### LUCTBH #### [facility] [address] [place] [address] Dr. Deepak Schwartz (RBC) [Entitic mass]32.0 kqAqlkaf57.9-34.0The [facility] HospitalComment on above:Performed By: #### CVDTBH #### [facility] [address] [place] [address] Dr. Deepak Schwartz (RBC) [Mass/Vol]32.1 g/iRHksvly50.9-35.2The [facility] HospitalComment on above:Performed By: #### CVDTBH #### [facility] [address] [place] [address] Dr. Deepak Schwartz (RBC) [Entitic vol]99.7 fLCritically high80.0-94.0The [facility] HospitalComment on above:Performed By: #### CVDTBH #### [facility] [address] [place] [address] Dr. Deepak Morel #1.4 103/ulCritically high0.3-0.8The [facility] Comment on above:Performed By: #### CVDTBH #### [facility] [address] [place] [address] Dr. Deepak Santosocytes/100 WBC (Bld)9.8 %Normal1.7-12.0[facility] Comment on above:Performed By: #### CVDTBH #### [facility] [address] [place] [address] Dr. Deepak Gifford #10.7 103/ulCritically high1.4-6.5ThOhioHealth Van Wert Hospital Comment on above:Performed By: #### CVDTBH #### [facility] [address] [place] [address] Dr. Deepak Mongeutrophils/100 WBC (Bld)72.6 %Moghku67.0-75.0The [facility] HospitalComment on above:Performed By: #### CVDTBH #### [facility] [address] [place] [address] Dr. Deepak Huffman mean volume (Bld) [Entitic vol]10.4 fLNormal9.5-13.5ThOhioHealth Van Wert HospitalComment on above:Performed By: #### CVDTBH #### [facility] [address] [place] [address] Dr. Deepak GreenfieldPLT280 103/ffHrnqvx992-117Vmh [facility] HospitalComment on above: Performed By: #### CVDTBH #### [facility] [address] [place] [address] Dr. Deepak GreenfieldRBC3.94 106/ulCritically low4.70-6.10ThOhioHealth Van Wert HospitalComment on above:Performed By: #### CVDTBH #### [facility] [address] [place] [address] Dr. Deepak GreenfieldWBC14.7 103/ulCritically high4.0-11.0[facility] FoundationComment on above:Performed By: #### CVDTBH #### [facility] [address] [place] [address] Dr. Deepak Lora BLOODon 88-38-3640Glikrhcfdog examination of blood, cultureCulture Observations: No growth at 5 days.NormalThe [facility] HospitalComment on above:Performed By: #### CBC #### [facility] [address] [place] [address] Dr. Deepak GreenfieldMicroscopic examination of blood, cultureCulture Observations: No growth at 5 days.NormalThe [facility] HospitalComment on above:Performed By: #### CBC #### [facility] [address] [place] [address] Dr. Deepak GreenfieldCovid-19 PCR ([facility])on [id number]-CoV-2 (COVID-19) RNA CINDY+probe Ql (Unsp spec)Not detectedNormalNOT DETECTEDThe [facility] Comment on above:Result Comment: When diagnostic testing [...] for this test is supported by the Printing Sales Representative of Health and Human Service's declaration that [...] longer be used).Performed By: #### INFLUAB #### [facility] [address] [place] [address] Dr. Deepak GreenfieldLACTATE/LACTIC ACIDon 99-33-3463Wtgezhm [Moles/Vol]1.7 mmol/L Normal0.4-1.9The [facility] HospitalComment on above:Performed By: #### MG, CMP #### [facility] [address] [address] [address] Deepak EllisonF 14(COMP METB)on 56-54-7374Wreolri [Mass/Vol]3.2 g/dL Critically low3.4-5.0The [facility] HospitalComment on above:Performed By: #### MG, CMP #### [facility] [address] [address] [address] Deepak GreenfieldAlbumin/Globulin [Mass ratio]0.7 {ratio}NormalThe [facility] HospitalComment on above:Performed By: #### MG, CMP #### [facility] [address] [address] [address] Deepak ReedP [Catalytic activity/Vol]49 U/JDwvzgl95-640Jzm [facility] HospitalComment on above:Performed By: #### MG, CMP #### [facility] [address] [address] [address] Deepak Mack [Catalytic activity/Vol]41 U/YChrfln12-71Skg [facility] HospitalComment on above:Performed By: #### MG, CMP #### [facility] [address] [address] [address] Deepak Decker gap [Moles/Vol]11.1 mmol/LNormalC[facility] Comment on above:Performed By: #### MG, CMP #### [facility] [address] [address] [address] Deepak Mcgee [Catalytic activity/Vol]29 U/YLaaksd13-11Jav [facility] HospitalComment on above:Performed By: #### MG, CMP #### [facility] [address] [address] [address] Deepak GreenfieldBilirubin [Mass/Vol]0.5 mg/dLNormal0.2-1.0The [facility] Comment on above:Performed By: #### MG, CMP #### [facility] [address] [address] [address] Deepak GreenfieldCalcium [Mass/Vol]9.1 mg/dLNormal8.5-10.1The [facility] Comment on above:Performed By: #### MG, CMP #### [facility] [address] [address] [address] Deepak GreenfieldChloride [Moles/Vol]108 mmol/LCritically oboe25-304Qwl [facility] HospitalComment on above:Performed By: #### MG, CMP #### [facility] [address] [address] [address] Deepak GreenfieldCO2 [Moles/Vol]25.7 mmol/UFiagsn31.0-32.0The [facility] Comment on above:Performed By: #### MG, CMP #### [facility] [address] [address] [address] Deepak GreenfieldCreatinine [Mass/Vol]0.89 mg/dLNormal0.70-1.30The [facility] HospitalComment on above:Performed By: #### MG, CMP #### [facility] [address] [address] [address] Deepak McallisterGFR-AF CITIZEN OF [place]>60Normal>=60The [facility] HospitalComment on above:Performed By: #### MG, CMP #### [facility] [address] [address] [address] Deepak McallisterGFR-NON AF CITIZEN OF [place]>60Normal>=60The [facility] HospitalComment on above:Performed By: #### MG, CMP #### [facility] [address] [address] [address] Deepak GreenfieldGlobulin (S) [Mass/Vol]4.5 g/dLNormalThe [facility] HospitalComment on above:Performed By: #### MG, CMP #### [facility] [address] [address] [address] Deepak GreenfieldGlucose [Mass/Vol]178 mg/dLCritically tvlt50-112Nwr [facility] HospitalComment on above:Performed By: #### MG, CMP #### [facility] [address] [address] [address] Deepak GreenfieldPotassium [Moles/Vol]3.8 mmol/LNormal3.5-5.1The [facility] Comment on above:Performed By: #### MG, CMP #### [facility] [address] [address] [address] Deepak GreenfieldProtein [Mass/Vol]7.7 g/dLNormal6.4-8.2[facility] Comment on above:Performed By: #### MG, CMP #### [facility] [address] [place] [address] Dr. Deepak GreenfieldSodium [Moles/Vol]141 mmol/KBmafuo886-206UpzC[facility] Comment on above:Performed By: #### MG, CMP #### [facility] [address] [place] [address] Dr. Deepak GreenfieldUrea nitrogen [Mass/Vol]16.0 mg/dLNormal7.0-18.0[facility] FoundationComment on above:Performed By: #### MG, CMP #### [facility] [address] [place] [address] Dr. Deepak Murphy nitrogen/Creatinine [Mass ratio]18.0 mg/mgNormalThOhioHealth Van Wert HospitalComment on above:Performed By: #### MG, CMP #### [facility] [address] [place] [address] Dr. Deepak Courtney, HIGH SENSITIVITYon 31-30-9083FRONEE2.4 pg/mLNormal 4.0-76.1[facility] FoundationComment on above:Result Comment: CUT-OFF POINTS HAVE BEEN ESTABLISHED BASED ON THE FOURTH UNIVERSAL DEFINITIONS OF MYOCARDIAL INFARCTION. THE UPPER REFERENCE LIMIT (URL) OF TROPONIN, DEFINED THE 99TH PERCENTILE OF cTnI DISTRIBUTION IN A REFERENCE POPULATION, HAS BEEN CONFIRMED THE DECISION THRESHOLD FOR WI DIAGNOSIS.Performed By: #### MG, CMP #### [facility] [address] [place] [address] Dr. Deepak GreenfieldXR CHEST 1 Von [id number] CHEST 1 VEXAM: XR CHEST 1 V HISTORY: SHORTNESS OF BREATH COMPARISON: Chest x-ray 01/06/2022. TECHNIQUE: Portable chest FINDINGS: Poor inspiratory effort. No pneumothorax or pleural effusion. The heart is not enlarged. No consolidation or infiltrate. Stimulator overlies the left upper abdomen. IMPRESSION: No acute abnormality Electronically authenticated by: ANICETO CROCKER Date: 2022-01-24 15:28NormMiddletown HospitalUA RANDOM W/MICROSCOPICon 70-57-9227VYWMXXZNVOCX SEENNormalNONE SEENCleveland Clinic FoundationComment on above:Performed By: #### CVDTBH #### [facility] [address] [address] [address] Deepak Lynnirubin Ql (U)NegativeNormalNEGATIVECleveland Clinic Foundation Comment on above:Performed By: #### CVDTBH #### [facility] [address] [address] [address] Deepak Slater SEENNormalNONE SEENCleveland Clinic FoundationComment on above:Performed By: #### CVDTBH #### [facility] [address] [address] [address] Deepak GreenfieldClolga (U)CLEARNormalCLEARCleveland Clinic FoundationComment on above: Performed By: #### CVDTBH #### [facility] [address] [address] [address] Deepak Phoenix (U)YELLOWNormalYELLOWCleveland Clinic FoundationComment on above: Performed By: #### CVDTBH #### [facility] [address] [address] [address] Deepak GreenfieldCrystals LM Nom (Urine sed)NONE SEENNormalNONE SEENCleveland Clinic FoundationComment on above:Performed By: #### CVDTBH #### [facility] [address] [address] [address] Sotelo ChangEpithelial cells LM Ql (Urine sed)RARENormalNONE SEEN /RARECleveland Clinic FoundationComment on above:Performed By: #### CVDTBH #### [facility] [address] [place] [address] Dr. Deepak Moralesose Ql (U)NegativeNormalNEGATIVECleveland Clinic FoundationComment on above:Performed By: #### CVDTBH #### [facility] [address] [address] [address] Deepak GreenfieldHemoglobin Ql (U)NegativeNormalNEGATIVECleveland Clinic Foundation Comment on above:Performed By: #### CVDTBH #### [facility] [address] [address] [address] Deepak GreenfieldKetones Ql (U)15 mg/dlAbnormalNEGATIVECleveland Clinic Foundation Comment on above:Performed By: #### CVDTBH #### [facility] [address] [address] [address] Deepak GreenfieldLEUKOCYTESNegativeNormalNEGATIVECleveland Clinic FoundationComment on above:Performed By: #### CVDTBH #### [facility] [address] [place] [address] Dr. Deepak GreenfieldMUCOUSNONE SEENNormalNONE SEENCleveland Clinic FoundationComment on above:Performed By: #### CVDTBH #### [facility] [address] [place] [address] Dr. Deepak GreenfieldNitrite Ql (U)NegativeNormalNEGATIVECleveland Clinic FoundationComment on above:Performed By: #### CVDTBH #### [facility] [address] [place] [address] Dr. Deepak GreenfieldpH (U)6.0 [pH]Normal5-9[facility] FoundationComment on above: Performed By: #### CVDTBH #### [facility] [address] [place] [address] Dr. Deepak GreenfieldHukwfKOH6-2Afgaxp1-8Khi [facility] HospitalComment on above:Performed By: #### CVDTBH #### [facility] [address] [place] [address] Dr. Deepak GreenfieldSPEC GRAVITY1.802Aoxaij4.005-<=1.025The [facility] HospitalComment on above:Performed By: #### CVDTBH #### [facility] [address] [place] [address] Dr. Deepak GreenfieldUA PROTEINNegativeNormalNEGATIVE/ TRACEThe [facility] Comment on above:Performed By: #### CVDTBH #### [facility] [address] [place] [address] Dr. Deepak Stillbilinogen Qn (U)0.2 {Ottoniel'U}/dLNormal0.2 - 1.0The [facility] HospitalComment on above:Performed By: #### CVDTBH #### [facility] [address] [place] [address] Dr. Deepak GreenfieldWBCNONKristin SEENNormalNONE SEENThe [facility] HospitalComment on above: Performed By: #### CVDTBH #### [facility] [address] [place] [address] Dr. Deepak Casillas 53-16-6576Jryumes [Mass/Vol]3.4 g/dLNormal3.4-5.0The [facility] HospitalComment on above:Performed By: #### CVDTBH #### [facility] [address] [place] [address] Dr. Deepak GreenfieldALKALINE PHOSPHAon [id number] [Catalytic activity/Vol]46 U/L Qtgdjg73-060Mym [facility] HospitalComment on above:Performed By: #### CVDTBH #### [facility] [address] [place] [address] Dr. Deepak GreenfieldAMMONIAvanita 39-95-1356Twxshcb (P) [Moles/Vol]93 umol/LCritically swty07-92Rqk [facility] HospitalComment on above:Performed By: #### INFLUAB #### [facility] [address] [place] [address] Dr. Deepak LynnIRUBIN CONJUGATED (DIRECT)on [id number], CONJUGATED0.1 mg/dLNormal0.0-0.2The [facility] HospitalComment on above:Performed By: #### CVDTBH #### [facility] [address] [place] [address] Dr. Deepak GreenfieldBILIRUBIN TOTALon 05-66-2221Wehgezagh [Mass/Vol]0.4 mg/dLNormal 0.2-1.0The [facility] HospitalComment on above:Performed By: #### CVDTBH #### [facility] [address] [place] [address] Dr. Deepak Brand AUTO DIFFon [id number] #0.0 103/ulNormal0.0-0.1[facility] FoundationComment on above:Performed By: #### MG, CMP #### [facility] [address] [place] [address] Dr. Deepak GreenfieldBasophils/100 WBC (Bld)0.3 %Normal0.2-2.0[facility] Comment on above:Performed By: #### MG, CMP #### [facility] [address] [place] [address] Dr. Deepak Boothe #0.1 103/ulNormal0.0-0.7The [facility] HospitalComment on above: Performed By: #### MG, CMP #### [facility] [address] [place] [address] Dr. Deepak Mcallisterosinophils/100 WBC (Bld)1.3 %Normal0.9-7.0The [facility] Comment on above:Performed By: #### MG, CMP #### [facility] [address] [place] [address] Dr. Deepak Mcallisterrythrocyte distribution width (RBC) [Ratio]14.2 %Yqkslm77.0-15.0 [facility] FoundationComment on above:Performed By: #### MG, CMP #### [facility] [address] [place] [address] Dr. Deepak GreenfieldHematocrit (Bld) [Volume fraction]40.4 %Critically low42.0-54.0 [facility] FoundationComment on above:Performed By: #### MG, CMP #### [facility] [address] [place] [address] Dr. Deepak GreenfieldHemoglobin (Bld) [Mass/Vol]13.1 g/dLCritically low14.0-18.0[facility] FoundationComment on above:Performed By: #### MG, CMP #### [facility] [address] [address] [address] Deepak Bahena #0.01 10e3/ulNormal0.00-0.03The [facility] Hospitalment on above:Performed By: #### MG, CMP #### [facility] [address] [place] [address] Dr. Deepak Bahena %0.1 %Normal0.0-0.5The [facility] HospitalComforest health medical center on above: Performed By: #### MG, CMP #### [facility] [address] [place] [address] Dr. Deepak Dong #3.3 103/ulNormal1.2-3.8The [facility] HospitalComment on above:Performed By: #### MG, CMP #### [facility] [address] [place] [address] Dr. Deepak Ricardohocytes/100 WBC (Bld)42.3 %Ljxskh08.5-60.0The [facility] on above:Performed By: #### MG, CMP #### [facility] [address] [place] [address] Dr. Deepak MendozaUAL DIFF REQNONormalThe [facility] HospitalComment on above: Performed By: #### MG, CMP #### [facility] [address] [place] [address] Dr. Deepak Schwartz (RBC) [Entitic mass]32.4 zvTmhivm49.9-34.0The [facility] on above:Performed By: #### MG, CMP #### [facility] [address] [place] [address] Dr. Deepak Schwartz (RBC) [Mass/Vol]32.4 g/cLOsprgp41.9-35.2The [facility] on above:Performed By: #### MG, CMP #### [facility] [address] [place] [address] Dr. Deepak Schwartz (RBC) [Entitic vol]100.0 fLCritically high80.0-94.0The [facility] HospitalComment on above:Performed By: #### MG, CMP #### [facility] [address] [place] [address] Dr. Deepak Morel #0.6 103/ulNormal0.3-0.8The [facility] HospitalComment on above:Performed By: #### MG, CMP #### [facility] [address] [place] [address] Dr. Deepak Santosocytes/100 WBC (Bld)7.6 %Normal1.7-12.0The [facility] Comment on above:Performed By: #### MG, CMP #### [facility] [address] [place] [address] Dr. Deepak Gifford #3.8 103/ulNormal1.4-6.5The [facility] HospitalComment on above:Performed By: #### MG, CMP #### [facility] [address] [place] [address] Dr. Deepak Mongeutrophils/100 WBC (Bld)48.4 %Atvpdj35.0-75.0The [facility] HospitalComment on above:Performed By: #### MG, CMP #### [facility] [address] [place] [address] Dr. Deepak Huffman mean volume (Bld) [Entitic vol]9.6 fLNormal9.5-13.5The [facility] HospitalComment on above:Performed By: #### MG, CMP #### [facility] [address] [place] [address] Dr. Deepak GreenfieldPLT315 103/zjQgqizi424-393Huk [facility] HospitalComment on above: Performed By: #### MG, CMP #### [facility] [address] [place] [address] Dr. Deepak GreenfieldRBC4.04 106/ulCritically low4.70-6.10The [facility] HospitalComment on above:Performed By: #### MG, CMP #### [facility] [address] [place] [address] Dr. Deepak GreenfieldWBC7.9 103/ulNormal4.0-11.0The [facility] HospitalComment on above: Performed By: #### MG, CMP #### [facility] [address] [place] [address] Dr. Deepak Stein/VALPROICon 44-69-4810ZLNRKJGI46.7 ug/rpGffopx03.0-100.0 The [facility] HospitalComment on above:Performed By: #### INFLUAB #### [facility] [address] [place] [address] Dr. Deepak GreenfieldPROF CHEM 8 (BAS METB)on 34-88-2027Gwcnm gap [Moles/Vol]12.9 mmol/LNormalThe [facility] HospitalComment on above:Performed By: #### INFLUAB #### [facility] [address] [place] [address] Dr. Deepak GreenfieldCalcium [Mass/Vol]8.8 mg/dLNormal8.5-10.1The [facility] Comment on above:Performed By: #### INFLUAB #### [facility] [address] [place] [address] Dr. Deepak GreenfieldChloride [Moles/Vol]103 mmol/WIjpqyg71-452Yue [facility] Comment on above:Performed By: #### INFLUAB #### [facility] [address] [place] [address] Dr. Deepak GreenfieldCO2 [Moles/Vol]28.1 mmol/XKpndvw47.0-32.0[facility] Comment on above:Performed By: #### INFLUAB #### [facility] [address] [place] [address] Dr. Deepak GreenfieldCreatinine [Mass/Vol]0.58 mg/dLCritically low0.70-1.30The [facility] HospitalComment on above:Performed By: #### INFLUAB #### [facility] [address] [place] [address] Dr. Sotelo ChangEGFR-AF CITIZEN OF [place]>60Normal>=60The [facility] HospitalComment on above:Performed By: #### INFLUAB #### [facility] [address] [place] [address] Dr. Deepak McallisterGFR-NON AF CITIZEN OF [place]>60Normal>=60The [facility] HospitalComment on above:Performed By: #### INFLUAB #### [facility] [address] [address] [address] Deepak GreenfieldGlucose [Mass/Vol]117 mg/dLCritically wrzs90-142Rif [facility] HospitalComment on above:Performed By: #### INFLUAB #### [facility] [address] [address] [address] Deepak GreenfieldPotassium [Moles/Vol]4.0 mmol/LNormal3.5-5.1The [facility] Comment on above:Performed By: #### INFLUAB #### [facility] [address] [place] [address] Dr. Deepak GreenfieldSodium [Moles/Vol]140 mmol/LWdteia941-622Zjf [facility] Comment on above:Performed By: #### INFLUAB #### [facility] [address] [address] [address] Deepak GreenfieldUrea nitrogen [Mass/Vol]7.0 mg/dLNormal7.0-18.0The [facility] HospitalComment on above:Performed By: #### INFLUAB #### [facility] [address] [place] [address] Dr. Deepak Murphy nitrogen/Creatinine [Mass ratio]12.1 mg/mgNormalThe [facility] HospitalComment on above:Performed By: #### INFLUAB #### [facility] [address] [place] [address] Dr. Deepak Tan 97-19-0894VOV [Catalytic activity/Vol]31 U/PRojqpm44-47Fok [facility] HospitalComment on above:Performed By: #### CVDTBH #### [facility] [address] [place] [address] Dr. Deepak Cottrell [id number] [Catalytic activity/Vol]48 U/VFyqvxx52-71Pej [facility] HospitalComment on above:Performed By: #### CVDTBH #### [facility] [address] [place], [place] [address] Dr. Deepak Coffey PROTEIN SERUMon 96-63-0372Jutavoh [Mass/Vol]7.3 g/dLNormal 6.4-8.2The [facility] HospitalComment on above:Performed By: #### BMP #### [facility] [address] [place], [place] [address] Dr. Deepak GreenfieldXR CHEST 2 Von [id number] CHEST 2 VEXAM: XR CHEST 2 V HISTORY: Congestion COMPARISON: Portable chest 05/28/2021 TECHNIQUE: 2 views FINDINGS: 2 extremely limited relatively nondiagnostic chest x-rays are presented for interpretation. Distended air-filled loops of bowel and findings raising the suspicion of an early bowel obstruction. No gross pneumothorax or pleural effusion IMPRESSION: Limited study Questionable bowel obstruction Electronically authenticated by: ANICETO CROCKER Date: 2022-01-06 16:15NormalThe [facility] HospitalXR DEXA BONE DENSITYon [id number] DEXA BONE DENSITYDEXA bone density study CLINICAL: [...] Electronically authenticated by: MARGARITO DAVIES Date: 2021-11-20 11:[address] [place] [address] SCROTUMon [id number] SCROTUMEXAMINATION: US SCROTUM HISTORY: Imaging of genitourinary [...] Electronically authenticated by: KRISTIAN BILLINGS Date: 2021-11-14 07:10[facility] HospitalONIA [id number] (P) [Moles/Vol]88 umol/LCritically tsbs24-97BvsCleveland Clinic FoundationComment on above:Performed By: #### MG, CMP #### [facility] [address] [place] [address] Dr. Deepak GreenfieldBrigham and [facility]'s [facility] 20-52-5813Rtvoqgc (P) [Moles/Vol]103 umol/LCritically vylz43-36AwgCleveland Clinic FoundationComment on above:Result Comment: SPECIMEN SLIGHTLY HEMOLYZED MAY AFFECT AMM RESULTPerformed By: #### INFLUAB #### [facility] [address] [place] [address] Dr. Deepak HerzogMISSION FAMILY HEALTH CENTERon [id number] identified Aer cx Nom (Unsp spec)Final reportNoSt. Rita's Hospital on above:Performed By: #### CXWND #### [facility] [address] [place] [address] Dr. Deepak Araujo 1CommentNoMercy Health Allen HospitalComment on above:Result Comment: No growth in 36 - 48 hours.Performed By: #### CXWND #### [facility] [address] [place] [address] Dr. Deepak Michel CULTUREon 07-13-5863Ebguorlf identified Aer cx Nom (Unsp spec)Final reportNoMercy Health Allen HospitalComment on above:Performed By: #### AMM #### [facility] [address] [place] [address] Dr. Deepak GreenfieldResult 1Mixed skin floraNoMercy Health Allen HospitalComment on above:Performed By: #### AMM #### [facility] [address] [place] [address] Dr. Deepak GreenfieldAMYLASEon 77-47-9628Puvswxo [Catalytic activity/Vol]24 U/L Critically nkb15-037Ncz [facility] HospitalComment on above:Performed By: #### CBC #### [facility] [address] [place] [address] Dr. Deepak Brand AUTO DIFFon [id number] #0.0 103/ulNormal0.0-0.1The [facility] HospitalComment on above:Performed By: #### CVDTBH #### [facility] [address] [place] [address] Dr. Deepak GreenfieldBasophils/100 WBC (Bld)0.5 %Normal0.2-2.0[facility] Comment on above:Performed By: #### CVDTBH #### [facility] [address] [place] [address] Dr. Deepak Boothe #0.1 103/ulNormal0.0-0.7The [facility] on above: Performed By: #### CVDTBH #### [facility] [address] [place] [address] Dr. Deepak Mcallisterosinophils/100 WBC (Bld)1.3 %Normal0.9-7.0The [facility] Comment on above:Performed By: #### CVDTBH #### [facility] [address] [place] [address] Dr. Deepak Mcallisterrythrocyte distribution width (RBC) [Ratio]13.9 %Xqzmsj59.0-15.0 The [facility] HospitalComment on above:Performed By: #### CVDTBH #### [facility] [address] [place] [address] Dr. Deepak GreenfieldHematocrit (Bld) [Volume fraction]40.0 %Critically low42.0-54.0 The [facility] HospitalComment on above:Performed By: #### CVDTBH #### [facility] [address] [place] [address] Dr. Deepak GreenfieldHemoglobin (Bld) [Mass/Vol]13.0 g/dLCritically low14.0-18.0The [facility] HospitalComment on above:Performed By: #### CVDTBH #### [facility] [address] [place] [address] Dr. Deepak Bahena #0.01 10e3/ulNormal0.00-0.03The [facility] HospitalComment on above:Performed By: #### CVDTBH #### [facility] [address] [place] [address] Dr. Deepak Bahena %0.2 %Normal0.0-0.5The [facility] HospitalComment on above: Performed By: #### CVDTBH #### [facility] [address] [place] [address] Dr. Deepak RicardoH #3.0 103/ulNormal1.2-3.8The [facility] HospitalComment on above:Performed By: #### CVDTBH #### [facility] [address] [place] [address] Dr. Deepak Laumphocytes/100 WBC (Bld)47.9 %Njkqts79.5-60.0The [facility] HospitalComment on above:Performed By: #### CVDTBH #### [facility] [address] [place] [address] Dr. Deepak GreenfieldMANUAL DIFF REQNONormalThe [facility] HospitalComment on above: Performed By: #### CVDTBH #### [facility] [address] [place], [place] [address] Dr. Deepak Schwartz (RBC) [Entitic mass]32.9 jmZuczup32.9-34.0The [facility] HospitalComment on above:Performed By: #### CVDTBH #### [facility] [address] [place] [address] Dr. Deepak Schwartz (RBC) [Mass/Vol]32.5 g/hCDuzgou39.9-35.2The [place] HospitalComment on above:Performed By: #### CVDTBH #### [facility] [address] [place] [address] Dr. Deepak Schwartz (RBC) [Entitic vol]101.3 fLCritically high80.0-94.0The [facility] HospitalComment on above:Performed By: #### CVDTBH #### [facility] [address] [place] [address] Dr. Deepak Morel #0.7 103/ulNormal0.3-0.8The [facility] HospitalComment on above:Performed By: #### CVDTBH #### [facility] [address] [place] [address] Dr. Deepak Santosocytes/100 WBC (Bld)10.3 %Normal1.7-12.0The [facility] Comment on above:Performed By: #### CVDTBH #### [facility] [address] [place] [address] Dr. Deepak Gifford #2.5 103/ulNormal1.4-6.5The [facility] HospitalComment on above:Performed By: #### CVDTBH #### [facility] [address] [place] [address] Dr. Deepak Mongeutrophils/100 WBC (Bld)39.8 %Critically low43.0-75.0The [facility] HospitalComment on above:Performed By: #### CVDTBH #### [facility] [address] [place] [address] Dr. Deepak Stanfordlet mean volume (Bld) [Entitic vol]10.1 fLNormal9.5-13.5The [facility] HospitalComment on above:Performed By: #### CVDTBH #### [facility] [address] [place] [address] Dr. Deepak GreenfieldPLT311 103/gcShwmiu639-988Ive [facility] HospitalComment on above: Performed By: #### CVDTBH #### [facility] [address] [place] [address] Dr. Deepak GreenfieldRBC3.95 106/ulCritically low4.70-6.10The [facility] HospitalComment on above:Performed By: #### CVDTBH #### [facility] [address] [place] [address] Dr. Deepak GreenfieldWBC6.3 103/ulNormal4.0-11.0The [facility] HospitalComment on above: Performed By: #### CVDTBH #### [facility] [address] [place] [address] Dr. Deepak GreenfieldCT ABD/PELV W CONon [id number] ABD/PELV W CONCT ABD/PELV W CON: 09/21/2021 [...] by: JAMIE ALICIA Date: 2021-09-22 02:34Normal The [facility] HospitalCT HEAD WO CONon [id number] HEAD WO CONEXAM: CT HEAD WO CON [...] Electronically authenticated by: BRITTON FONTENOT Date: 2021-09-22 01:13NormMiddletown HospitalLIPASEon 07-51-1660Bczitf [Catalytic activity/Vol]28.0 U/L Critically low73.0-393.0[facility] FoundationComment on above:Performed By: #### CBC #### [facility] [address] [place] [address] Dr. Deepak Moreno 14(COMP METB)on 12-32-2586Cchywby [Mass/Vol]3.3 g/dL Critically low3.4-5.0The [place] HospitalComment on above:Performed By: #### BMP #### [facility] [address] [address] [address] Deepak GreenfieldAlbumin/Globulin [Mass ratio]0.9 {ratio}NormalThe [facility] HospitalComment on above:Performed By: #### BMP #### [facility] [address] [address] [address] Deepak ReedP [Catalytic activity/Vol]38 U/LCritically ksy84-245Xgj [facility] HospitalComment on above:Performed By: #### BMP #### [facility] [address] [address] [address] Deepak ReedT [Catalytic activity/Vol]91 U/LCritically nsoa61-72Rqt [facility] HospitalComment on above:Performed By: #### BMP #### [facility] [address] [place] [address] Dr. Deepak Fischeron gap [Moles/Vol]10.2 mmol/LNormalThe [facility] Comment on above:Performed By: #### BMP #### [facility] [address] [address] [address] Deepak GreenfieldAST [Catalytic activity/Vol]50 U/LCritically uqwf53-98Hmf [facility] HospitalComment on above:Performed By: #### BMP #### [facility] [address] [place] [address] Dr. Deepak GreenfieldBilirubin [Mass/Vol]0.3 mg/dLNormal0.2-1.0The [facility] Comment on above:Performed By: #### BMP #### [facility] [address] [address] [address] Deepak GreenfieldCalcium [Mass/Vol]8.6 mg/dLNormal8.5-10.1The [facility] Comment on above:Performed By: #### BMP #### [facility] [address] [place] [address] Dr. Deepak GreenfieldChloride [Moles/Vol]106 mmol/CPsbgjq88-738SmpCleveland Clinic Foundation Comment on above:Performed By: #### BMP #### [facility] [address] [address] [address] Deepak GreenfieldCO2 [Moles/Vol]29.9 mmol/JRxrdef11.0-32.0The [facility] Comment on above:Performed By: #### BMP #### [facility] [address] [address] [address] Deepak GreenfieldCreatinine [Mass/Vol]0.65 mg/dLCritically low0.70-1.30The [facility] HospitalComment on above:Performed By: #### BMP #### [facility] [address] [address] [address] Sotelo ChangEGFR-AF CITIZEN OF [place]>60Normal>=60The [facility] HospitalComment on above:Performed By: #### BMP #### [facility] [address] [place] [address] Dr. Deepak McallisterGFR-NON AF CITIZEN OF [place]>60Normal>=60The [facility] HospitalComment on above:Performed By: #### BMP #### [facility] [address] [address] [address] Deepak GreenfieldGlobulin (S) [Mass/Vol]3.7 g/dLNormalThe [facility] HospitalComment on above:Performed By: #### BMP #### [facility] [address] [place] [address] Dr. Deepak GreenfieldGlucose [Mass/Vol]105 mg/hOJzbtaz06-412UocC[facility] Clinic Foundation Comment on above:Performed By: #### BMP #### [facility] [address] [address] [address] Deepak GreenfieldPotassium [Moles/Vol]4.1 mmol/LNormal3.5-5.1[facility] Comment on above:Performed By: #### BMP #### [facility] [address] [address] [address] Deepak GreenfieldProtein [Mass/Vol]7.0 g/dLNormal6.4-8.2The [facility] Comment on above:Performed By: #### BMP #### [facility] [address] [place] [address] Dr. Deepak GreenfieldSodium [Moles/Vol]142 mmol/DJycxxx576-030Tlq [facility] Comment on above:Performed By: #### BMP #### [facility] [address] [address] [address] Deepak GreenfieldUrea nitrogen [Mass/Vol]13.0 mg/dLNormal7.0-18.0[facility] FoundationComment on above:Performed By: #### BMP #### [facility] [address] [address] [address] Deepak Murphy nitrogen/Creatinine [Mass ratio]20.0 mg/mgNoalThe [facility] HospitalComment on above:Performed By: #### BMP #### [facility] [address] [address] [address] Deepak Greenfield Vital Signs Date TimeVital SignValuePerforming GysdmfanfYipixupm40-94-6823 10:54-0400Body iftsto747.48 cmDaniel Acevedo DO Work Phone: [phone] [place], [place] 8132309-02-2025 10:54-0400 Body mass index (BMI) [Ratio]25 kg/u0Lwgjyu Acevedo DO Work Phone: [phone])063-[address] [place], [place] 8132309-02-2025 10:54-0400 Body gzwloe55.19 kgDaniel Acevedo DO Work Phone: [phone])[phone] [place], [place] 8132302-24-2025 08:27-0500 Body exwwpzunpvf54.4 [degF]Ap Scott DDS Work Phone: [phone]) [phone]jLslpef74-08-0701 08:27-0500Diastolic blood aoexdjqn55 mm[Hg]Ap Scott DDS Work Phone: 1(775) [phone]pVjaodl50-18-8355 08:27-0500Heart rate84 /minLaith Chung-Israelhni DDS Work Phone: [phone]) [phone]lUfqvcq19-25-1597 08:27-0500Respiratory rate16 /minLaith Chung-Israelhni DDS Work Phone: 1(963) [phone]eRmwqzn39-31-8839 08:27-7362GgY5% (BldA) [Mass fraction]96 %Ap Scott DDS Work Phone: [phone]) [phone]oTjypzu27-95-6814 08:27-0500Systolic blood dotthbcq439 mm[Hg]Ap Scott DDS Work Phone: 1(310) [phone]lKpmlmk42-43-3241 07:02-0500Body ndsbuc90.05 kg Ap Scott DDS Work Phone: 1(614) [phone]gWqwyum78-86-9993 21:37-0500Heart igkh463 /minPat BrpodkhoqpAgjmlNvnzam03-20-8076 13:35-0500Body jmrztyljzow91.91 [degF]Pat AavezbhrpdHqwgoRluqmg12-72-4968 13:35-0500Body tofdpw30.05 kgPat Anesthesia ErjrhYmxmue07-35-9408 13:35-0500Diastolic blood gurgkyhr29 mm[Hg]Pat Anesthesia UcnfjQpbcwo33-47-1865 13:35-0500Heart ubht470 /minPat AnesthesiaMetroMad[facility] 06-02-2024 13:35-0500Respiratory rate16 /minPat SqjtonswziFufjyVzypak98-59-0140 13:35-0500Systolic blood fjjslimr532 mm[Hg]Pat CvertexkxbYfzlmGogepx04-15-6920 13:25-0500Body acsyfjskxgo41.91 [degF]Boyd Harry MD Work Phone: 1(760) [phone]qEiyxbi45-51-8122 13:25-0500Body .05 kg Boyd Harry MD Work Phone: 1(455) [phone]lCkqeja37-77-7372 13:25-0500Diastolic blood tmiqjtre22 mm[Hg]Boyd Harry MD Work Phone: 1(735) [phone]eLgyruh43-03-9717 13:25-0500Heart lgil661 /min Boyd Harry MD Work Phone: 1(791) [phone]fLwlayj76-61-2659 13:25-0500Respiratory rate16 /minEbre Harry MD Work Phone: 1(265) [phone]pXcayrc75-95-9602 13:25-0500Systolic blood worlloia772 mm[Hg]Boyd Harry MD Work Phone: 1(966) [phone]oRtvcqr86-57-0002 13:05-0500Diastolic blood mm[Hg]Rodriguez Rashel DO Work Phone: [facility] CenterAaegjtqkda48-04-6756 13:05-0500Systolic blood jfdlbnoq788 mm[Hg]Rodriguez Rashel DO Work Phone: [facility] CenterPohipmcxyj99-14-5499 11:34-0500Diastolic blood koyzayye67 mm[Hg]Rodriguez Rashel DO Work Phone: [facility] CenterNvvjtdbaup49-28-8120 11:34-0500Heart rate68 /min Rodriguez Rashel DO Work Phone: [facility] CenterAwqrylhxjf31-41-0960 11:34-5811UeC3% (BldA) [Mass fraction]98 %Rodriguez Rashel DO Work Phone: [facility] CenterJgagqyujzs83-06-3581 11:34-0500Systolic blood nvvvwoza424 mm[Hg]Rodriguez Rashel DO Work Phone: [facility] CenterGrtgdqinya70-69-0742 10:18-0400Blood Pressure LocationKathy Lue [facility]08-30-2023 10:18-0400Body ghdfiicrqzj34.06 [degF]Arline Lue [facility]08-30-2023 10:18-0400Diastolic blood kjrjabat00 mm[Hg]Arline Lue [facility]08-30-2023 10:18-0400Heart rate84 /minKathy Lue [facility]08-30-2023 10:18-0400Systolic blood xomnmhcg220 mm[Hg]Arline Lue [facility]09-06-2022 11:30-0400Body .48 cmHeidi Leonel Other [facility] Other 09-06-2022 11:30-0400Body mass index (BMI) [Ratio] 25.79 kg/l1Kycqf Leonel Other [facility] Other 09-06-2022 11:30-0400Body hyyxycpcwyk60.5 [degF]Antionette Leonel Other [facility] Other 09-06-2022 11:30-0400Body jpileo22.96 kgHeidi Leonel Other [facility] Other 09-06-2022 11:30-0400Diastolic blood seqaujdr59 mm[Hg] Antionette Leonel Other [facility] Other 09-06-2022 11:30-0400Respiratory rate20 /minHeidi Leonel Other [facility] Other 09-06-2022 11:30-8478VaK3% (BldA) [Mass fraction]99 % Antionette Leonel Other [facility] Other 09-06-2022 11:30-0400Systolic blood mpppqbpe848 mm[Hg] Antionette Leonel Other [facility] Other 07-06-2022 10:29-0400Blood Pressure LocationKathy Lue [facility] 07-06-2022 10:29-0400Diastolic blood mm[Hg] Ar[facility] 07-06-2022 10:29-0400Heart fhmr310 /minKathy Lue [facility] 07-06-2022 10:29-0400Respiratory rate16 /minKathy Lue [facility] 07-06-2022 10:290400Systolic blood nxrhkqez676 mm[Hg] Arline Lue [facility] Encounters Encounter DateEncounter [facility] ProviderFacilityStart: 01-16-2025 End: 11-44-1747aovqauwpdkRwpipt A Acevedo DO Work Phone: [facility] Work Phone: Start: 01-16-2025 End: 06-21-0502Afxtgox encounter procedureAntionette Little APRN [facility] Work Phone: Start: 12-19-2024 End: 35-99-8333ettzqekozpIeexlr A Acevedo DO Work Phone: [facility] Work Phone: Start: 12-19-2024 End: 51-78-9812Czipnue encounter procedureMarissa Schwarz APRNHoly [facility] Medical Center Work Phone: Start: 12-11-2024 End: 76-08-9816Mzouwie encounter procedureFilomena Alfaro DDS Work Phone: [employer] [facility] DentistryStart: 58-01-8571svjdoixrxpITQACBQ PROVIDERFacility:[facility]Start: 07-11-2024 End: 25-54-1624cyhusfngfoAirjpmgdyOhioHealth Shelby Hospital Work Phone: Start: 07-11-2024 End: 66-79-4272Mvbddjc encounter procedureLifebrite [facility] Work Phone: Start: 45-56-3316grfcmmmthrRCRRXKJ PROVIDER Facility:[facility]Start: 06-12-2024 End: 44-79-1795awlwddtbqwYMLYF AL-MASHNIFacility:[facility] HospitalStart: 06-12-2024 End: 51-87-6542Yjiwysfhch hospital visit by Susan Scott DDS Work Phone: [facility] SurgeryStart: 06-12-2024 End: 75-81-0879Eckjnmp encounter procedureAp Scott DDS Work Phone: [facility] HospitalRooftop Media DentistryStart: 06-05-2024 End: 75-05-7434Kidvftyet encounterMelotoniel Roy RNMetroHealth Pre-Admission TestingComment on above:PAT (Informed Consent & Anesthesia consent obtained) Start: 06-02-2024 End: 48-36-1941Ofilvrsvqd hospital visit by physicianMh Op Xray 1[facility] RadiologyComment on above:Pre-op evaluationStart: 06-02-2024 End: 87-52-5535fpuintorevMLMWWPQ PROVIDERFacility:[facility] HospitalStart: 06-02-2024 Encounter for other preprocedural examinationUNKNOWN PROVIDERThe [facility] SystemStart: 06-02-2024 End: 11-47-8229Hinfhu outpatient new 45 minutesPat AnesthesiaMetroHealth Pre- Admission TestingComment on above:Preop examination (Primary Dx); Intellectual disability; Hypothyroidism, unspecified type; Seizure (HCC); Edema, unspecified type; Tachycardia, unspecified; Cardiomegaly; Abnormal electrocardiogram (ECG) (EKG); Abnormal electrocardiogram (ECG) (EKG); Abnormal electrocardiogram (ECG) (EKG)Pre-op evaluation (Primary Dx); Mental disability; Hypothyroidism, unspecified type; Abnormal thyroid blood testStart: 06-02-2024 End: 63-42-6582Iymqlcuvbgexo examination Elvira Harry MD Work Phone: [facility] Work Phone: start: 06-02-2024 End: 92-35-4113qbteyrrmvkGDCTOHQC BOAKYEFacility:[facility] CENTERROHealthStart: 05-31-2024 End: 18-98-4690Shggmw flowsheetNicole Rashel DO Work Phone: aNA BELLEVUEStart: 05-31-2024 End: 61-50-9055Ulyrhm flowsheetNicole Rashel DO Work Phone: aNA BELLEVUEStart: 05-31-2024 End: 26-32-8921Khkgru outpatient visit 25 minutesNicole Rashel DO Work Phone: ana BELLEVUEComment on above:Generalized convulsive epilepsy (CMS/HCC) (Primary Dx); 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); Spastic hemiplegia, nondominant side (HCC) (CMS/HCC); Spastic hemiplegia affecting dominant side (CMS/HCC); Severe intellectual disabilities (CMS/HCC); Behavior disturbance (CMS/HCC)Start: 05-31-2024 End: 67-07-8500mznzeewhreIAKAYJ DANNERNot AvailableStart: 03-28-2024 End: 84-16-6742Xfsspvtzn to same day surgery Miguel Adair DDS Work Phone: [facility]Start: 03-07-2024 End: 78-36-5239Kvncwu flowsheetNicole Rashel DO Work Phone: [facility] R[facility]TEStart: 03-07-2024 End: 36-86-5975Itkecv flowsheetNicole Rashel DO Work Phone: noms [facility] ROUTEStart: 03-07-2024 End: 90-08-1132Aubtpg outpatient visit 25 minutesNicole Rashel DO Work Phone: noms [facility] ROUTEComment on above:Generalized convulsive epilepsy (CMS/HCC) (Primary Dx); 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); Spastic hemiplegia affecting dominant side (CMS/HCC); Spastic hemiplegia, nondominant side (HCC) (CMS/HCC); Severe intellectual disabilities (CMS/HCC)Start: 03-07-2024 End: 85-16-7741ckrivygqvzWTAKLD DANNERNot AvailableStart: 01-11-2024 End: 92-57-2848wjpqyskhebNtwphcbkdOhioHealth Shelby Hospital Work Phone: Start: 01-11-2024 End: 57-43-0376Cdyorsj encounter procedureLifebrite [facility] Work Phone: Start: 11-07-2023 End: 69-51-0437Fggmgl encounterAbundio Vishnu DDS Work Phone: [facility]HealthStart: 08-25-2023 End: 12-02-2647gpeomjvfmoZRKMAB DANNERNot AvailableStart: 07-06-2023 End: 10-56-4468utucgyvryoGubncqeyuOhioHealth Shelby Hospital Work Phone: Start: 07-06-2023 End: 67-73-6168Bouetsf encounter procedureFirfort [facility] Work Phone: Start: 01-05-2023 End: 49-63-7487tbyzvlildfCaqxz Leonel Other [facility] [employer] Other Start: 76-50-8654Gzwvpw outpatient visit 25 minutes Antionette GastFPG Pulmonary DiseaseStart: 12-16-2022 End: 50-16-4826xojxqaciokZprdq Anabel LueFacility:EU BellevueStart: 12-16-2022 End: 79-44-7754Xnjrkpb encounter procedureTheresaevangelista Levine [facility] start: 08-04-2022 End: 08-93-6983oftibqctpoFG DANIEL A HERRINGFacility:O6Khegk: 07-29-2022 End: 95-46-7695Impwkrksrm and management of inpatientDR FAM ACEVEDO Facility:O3Ysqrs: 07-26-2022 End: 33-94-0898ixlrmqpjpqSZ DANIEL A HERRINGFacility:Y5Jkzda: 07-23-2022 End: 88-89-4453lvnxaujuuoMRSNDW HERRINGFacility:FTMCStart: 07-23-2022 End: 76-89-8373Uyduwql encounter procedureDACHUCKIE LORENZO [facility] Start: 06-23-2022 End: 89-35-7093eulgtokhopTxdcx Leonel Other [facility] [employer] Other Start: 62-22-1597Wgyqur outpatient visit 25 minutes Antionette GastFPG Pulmonary DiseaseStart: 06-03-2022 End: 64-87-3910dvrrugayftSF DANIEL A HERRINGFacility:Q5Ljmqx: 94-51-8085Uoibxs encounterAbundio Mares DDS Work Phone: [facility]HealthStart: 04-22-2022 End: 72-32-6688yjgkejimdcNB FAM A HERRINGFacility:D2Qbnoe: 03-19-2022 End: 13-38-4118uinfpofrhkFP DANIEL A HERRINGFacility:F3Xyfll: 03-10-2022 End: 42-21-2175irjanqlsopTM FAM A HERRINGFacility:W1Orcbn: 01-24-2022 End: 04-43-5775atzsgfkvybRR JACK HAY .Facility:S1Pebec: 01-18-2022 End: 47-32-2059xnygrxtjxmGZJAOK RODRIGUEZ .Facility:X3Bpszz: 01-13-2022 ambulatoryDR RODRIGUEZ KISERFacility:K5Ejkyt: 01-12-2022 End: 99-70-4589qiijznehyhRA NICOLE DANNERFacility:D2Stbbq: 01-06-2022 End: 15-29-0848nurmaazfipYC DANIEL A HERRINGFacility:M7Ldpzg: 12-23-2021 End: 12-64-2682zosrswvtbmXtrtp Leonel Other [facility] [employer] Other Start: 91-60-3605Onmbmm outpatient visit 25 minutes Antionette GastFPG Pulmonary DiseaseStart: 12-16-2021 End: 38-49-3634Galzlgd encounter procedureMora Powell [facility] Work Phone: [facility] HospitalStart: 12-10-2021 End: 39-43-5766Dqjlmbu encounter procedureArline Levine [facility] start: 11-20-2021 End: 45-27-8819jmqrdkankpRB DANIEL A HERRINGFacility:Y6Uoqgc: 11-13-2021 End: 05-95-1668wlypgpkzcvVBVHI M LUE .Facility:D4Sqhqo: 10-31-2021 End: 93-49-2730yavjxpdpjpVZ DANIEL A HERRINGFacility:C5Ipvks: 10-22-2021 End: 11-94-7345Dpmyufi encounter procedureArline Levine [facility] start: 10-21-2021 End: 20-57-9603zowbebiwjaAH DANIEL A HERRINGFacility:U0Bpzcf: 09-29-2021 End: 87-15-2433anlzlchkolGK DANIEL A HERRINGFacility:N1Rhmtn: 09-22-2021 End: 70-59-2307zeuakthetoVZFVH PARKERFacility:H1 Procedures DateProcedureProcedure DetailPerforming ClinicianStart: 06-12-2024 End: 46-85-2601COJMYL RESTORATIONSLajohnson Scott DDS Work Phone: Start: [phone] exam chest 2 viewsEmpravin Harry MD Work Phone: Start: 90-69-5392Pgxez count complete automated Сергей Alves MD Work Phone: start: [phone] routine ecg w/least 12 lds trcg only w/o i&rChrsoledad Alves MD Work Phone: start: [phone] julisa implt npgt phys/qhp w/o programmingNicole Rashel DO Work Phone: Start: 76-85-2491Htxm julisa implt npgt phys/qhp w/o programmingNicole Rashel DO Work Phone: Plan of Treatment DateCare ActivityDetailAuthorStart: 79-60-9925Dfnzefxl (RZV) Vaccine (1 of 2) Shingles (RZV) Vaccine (1 of 2)[facility]HealthStart: 21-62-1425Cgwiu panel CholesterolMetroHealthStart: 85-54-8826Ezxjhhv stimulating hormone measurement TSHMetroHealthStart: 93-77-5995Zqpfhzkrk vaccinationInfluenza Vaccine (#1) [facility]: 81-39-3555UGIFH-19 Vaccine ( season)COVID-19 Vaccine ( season)[facility]: 08-22-0239Uetykqdtn vaccination Influenza Vaccine (#1)[facility]HealthStart: 12-11-2024 End: 44-77-3530Qofgmha encounter procedureMetro[facility] Start: 11-20-2024 End: 94-77-2482Fcyqasg encounter dkepikpff28/04/2025 11:20 AM EDT Office Visit YENNIFER AN [address] [place] [id number] Marissa Gonzalez, PUNEET [address] [place] [address] YENNIFER REEDtart: 77-37-3770Imawfvzies hospital visit by physician 06/12/2024 Hospital Encounter [facility] Surgery [address] [place] [address] Ap Scott, KETAN [address] [place] [address] [facility] SurgeryStart: 06-02-2024 End: 27-27-7734Ugqpjql encounter ffmogmeeh24/14/2025 1:30 PM EST Office Visit [facility] [address] [place] [address] Boyd Harry MD [address] [place], [place] [id number] [facility] Start: 05-31-2024 End: 27-77-4417Tewiker encounter procedureNOMS NATALIYA [facility] R[facility]TEComment on above:ArrivedStart: 30-69-9371Qrwprmh to Medicare Visit (G0402)Welcome to Medicare Visit (G0402)[facility]: 03-07-2024 End: 83-51-8618Qiitwvh encounter pmeagcbqk02/19/2024 11:30 AM EST Office Visit NOMS NATALI[facility] [address] [place] [phone] Rodriguez Kiser DO [address] [place] [id number] ArrivedNOINSPIRA MED[facility] HILL[facility] ROUTEComment on above: ArrivedStart: 81-51-4297Kcbbzhddy vaccinationInfluenza Vaccine (#1)[facility] Start: 77-13-9006KTJBR-19 Vaccine ( season)COVID-19 Vaccine ( season)[facility]: 69-55-0614Kfbmqmcer vaccinationInfluenza Vaccine (#1)[facility] HealthcareStart: 77-06-3959MIYEX-19 Vaccine ( season)COVID-19 Vaccine ( season)[facility]: 01-17-2022 Influenza vaccinationInfluenza Vaccine (#1)[facility]: 99-54-8026Rgaft panelCholesterolMetroHealthStart: 66-66-4686Rarfie wellness visitAnnual Wellness Visit (G0438)[facility]HealthStart: 79-79-7563TKY Vaccine (optional start 27-45 years)HPV Vaccine (optional start 27-45 years)[facility]HealthStart: 02-01-1999 Hepatitis A (HAV) Vaccine (optional start 19+ years)Hepatitis A (HAV) Vaccine (optional start 19+ years)[facility]Start: 47-93-9799Iexapiyzz B vaccination Hepatitis B (HBV) Vaccine (1 of 3 - 19+ 3-dose series)[facility]Start: 34-19-3146Vztxdkjqw C screeningHepatitis C AntibodyMetroHealthStart: 02-01-1998 Tetanus + diphtheria + acellular pertussis vaccine (product)Tdap Booster [facility]HealthStart: 12-92-9997YEF screeningHIV TestMetroHealthStart: 1980 COVID-19 Vaccine (#1)COVID-19 Vaccine (#1)[facility]HealthStart: 1980Medicare Annual Wellness (AWV)Medicare Annual Wellness (AWV)[facility] HealthcareStart: 45-95-9128Jyjbvabp specific antigen measurementProstate Cancer Screening (shared decision making)MetroHealthDENTAL RESTORATIONSDENTAL RESTORATIONS Routine scheduled CariesMetroHealth Immunizations Immunization DateImmunizationNotesCare OmyqslvxGweudgsn88-21-7467waytpwvcuptt conjugate vaccine, [address] [facility] Work Phone: [phone]uFkvzpt43-64-0750yojwrdeav, injectable, quadrivalent, preservative freeMora Ulloametz [facility] Work Phone: [phone]nQylsvj87-52-1510lacmkzjgf virus vaccine, unspecified formulationKristen Urmetz RD Work Phone: [facility]10-25-2017influenza virus vaccine, unspecified formulationKathy Lue [facility]10-25-2017influenza, injectable, quadrivalent, contains preservative Mora Urmetz [facility] Work Phone: [phone]pHclwyp75-16-4416sofjdrzob virus vaccine, unspecified formulationKathy Lue [facility]10-22-2015influenza, injectable, quadrivalent, preservative freeKristen Urmetz [facility] Work Phone: [phone]dNrwihv94-00-1553kwoalhygxdhf polysaccharide vaccine, [address] [facility] Work Phone: [phone]gQoogwv78-11-7037yyroxdljl virus vaccine, unspecified formulationKathy Lue [facility]09-14-2011influenza, seasonal, injectableKristen Urmetz [facility] Work Phone: [phone]ySdptxc92-28-1303pxutk nmvfbqkuh-A3T9-52, preservative-free, injectableKristen Urmetz [facility] Work Phone: [phone]xCkiqqp83-01-3125vsnofnzlh virus vaccine, whole virusKristen Urmetz [facility] Work Phone: [phone]uQnodon58-25-5697xndengytn, wholeKathy Lue [facility] HospitalNEGATED: Highlighted row has not occurred!93-29-2883NKFG-CoV-2 mRNA (tozinameran 5y-11y) vaccineKathy Lue [facility] Payers DatePayer CategoryPayerPolicy [id number] --Stand AloneDENTAL-MEDICAID [id number] 2018Medicaid [id number] 2012Medicare [id number] 2012Medicare FFS 1.2.840.627880.1.13.56.2.7.9.226421.[id number] 2.0.1.726608.3.579.2.18810-99-0686Vqyqgsr4227112 2.0.1.951144.3.57[id number] 2.0.1.790135.3.57[id number] 2.840.1.358663.3.57[id number] 2.840.1.456493.3.57[id number] 2.840.1.022777.3.579.2.97943-50-5914Cjwbdvo2453119 2.840.1.130806.3.579.2.509558-34-2891Mddtgcc7506694 2.0.1.632110.3.579.2.973779-77-7113Pcktgxm9078886 2.840.1.663673.3.57[id number] 2..1.379781.3.57[id number] 2.0.1.537612.3.57[id number] 2..1.841144.3.579.2.76500-85-2914Dsdnhwj238602730 2..1.281623.3.57[id number] 2..1.216258.3.579.2.3[id number] 2..1.160887.3.579.2.21044-54-8612Hjsoncm908411575 2..1.463317.3.579.2.732 [id number] 2..1.405267. [id number] 2.840.5.53614[id number] 2.0.1.299930.3.579.2.78331-37-0357Tosybpy3757608 2.840.1.844862.3.579.2.09493-94-1127Ljgxdpp3386323 2.840.1.439740.3.579.2.46343-59-9551Hmslopo1638139 2.16.840.1.560003.3.579.2.19294-76-0172Cxhnvel7325497 2.16.840.1.699023.3.579.2.34849-57-2360Bklsneq0219355 2.16.840.1.778821.3.579.2.97657-80-4598Iokcnbf1950524 2.16.840.1.292821.3.579.2.37134-40-9833Asgpudu2730704 2.16.840.1.019803.3.579.2.20850-59-0133Atbbvrx8101270 2.16.840.1.476294.3.579.2.11481-39-8088Mluhiha5156749 2.16.840.1.426932.3.579.2.67842-04-3369Gvqsecp1322541 2.16.840.1.929651.3.579.2.52048-37-5438Hygkpcy2490829 2.16.840.1.598194.3.579.2.73498-10-2254Uvcsjsi1504135 2.16.840.1.802079.3.579.2.41420-49-3302Gbxqwqj6307615 2.16.840.1.385029.3.579.2.593Self-paySelf Pay [id number] Social History DateTypeDetailFacilityTobacco smoking statusNo Smoking Status EnteredExec[facility] start: 11-02-2022 End: 92-06-9962Alu Assigned At BirthMaleExec[facility] start: 03-28-2020 End: 25-26-8377Buqqmwn smoking status NHISTobacco smoking consumption unknown [facility] Hospitaltart: 25-86-2815Oen Assigned At BirthNot on fileMetroHealthTobacco smoking statusNo Smoking Status EnteredSt. Charles Hospitaltart: 11-02-2022 End: 10-32-4266Efnzxnd smoking statusNever smoked tobacco (finding)[facility] HospitalTo[facility] memorial hospital smoking statusNever [facility]ertart: 93-71-4311Tfq Assigned At BirthSelect Medical Specialty Hospital - Cantontart: 11-02-2022 End: 77-41-1344Qdmwjdrld beverage intakeEx-drinker (finding)[facility] Start: 11-02-2022 End: 80-73-8722Raubkvq of Social functionNOMS HealthcareStart: 02-21-2012 End: 79-38-9391FnlRpwi (finding)[facility] Functional Status GozyWxishcmyqyJzloipXzjpgxev98-12-8588Voavtjewsa StatusN/AExec[facility] of [facility]08-24-2022Functional StatusN/AExec[facility]07-06-2022Functional StatusN/A [facility] Clinical Notes 10-22-2021 to 12-19-2024 Note Date & BgwaUgjfFgtiyqox94-62-8042 Evaluation note* Diagnosis Onset Date Resolution Status Admit Date Aphasia acuteSept2024 10:36am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acuteSept2024 10:36amGeneralized convulsive epilepsyacute December 19, 2024 10:36amMotor delayacuteSept2024 10:36amSevere intellectual disabilityacuteSept2024 10:36amSpastic hemiplegia affecting dominant sideacuteSept2024 10:36amSpastic hemiplegia affecting nondominant sideacuteSept2024 10:36amCOPD (chronic obstructive pulmonary disease)acuteSept2024 10:26amSevere intellectual disabilityacuteSeptember 2024 10:26am [facility] Work Phone: 1(878) 587-289308-25-2025 History of Present illness Narrative* Filomena Alfaro DDS - 12/11/2024 9:51 AM EDT ----- Wednesday, December 11, 2024 at 11:07:03 AM ----- ----- Provider: [id number] Resident Flaco -- Clinic: [place] ----- LIMITED EXAM Patient presents for Scheduled [...] for definitive treatment. Guardian mother Katia Lopez. [phone]. [facility] [phone] EXT [phone] ( [facility] appt) Contact Information [phone] (Home Phone) Alternate Parent Educator KORY (Other) NOTE: Scheduled for OR ----- Signed on Wednesday, December 11, 2024 at 12:38:13 PM ----- ----- Provider: [id number] Heriberto Jacobs DMD -- Clinic: [place] ----- documented in this [id number] Hospital Discharge instructions* Discharge Instructions* Adalgisa Maldonado RN - 06/12/2024 8:24 AM EST PERIOPERATIVE DISCHARGE/HOME-GOING INSTRUCTIONS ANESTHESIA - GENERAL (ADULT) If a problem arises, you may contact your physician by calling [phone] and asking for the resident nutrition instructor for Dental service. Special Care Needs: Activity: [...] very uncomfortable and can t urinate, call [phone] or come to the emergency room. A [...] to Care for Your Mouth and Teeth (Swazi) documented in this o[id number] History of Present illness Narrative* Ap Scott DDS - 06/12/2024 8:18 AM EST ----- Wednesday, June 12, 2024 at 8:41:56 AM ----- ----- Provider: [id number] - Ap Adams DDS -- Clinic: [facility] ----- [facility], pt is ready for tx. [place], only scaling was done. Operative Note [facility] OR 3 Parish Lopez 44 year old male Surgical Contact Serial Number: [id number] Preoperative Diagnosis: Pre-op Diagnosis * Caries [K02.9] Mental disability COPD Hyperthyroidism Seizures HLD GERD Postoperative Diagnosis: Mental Disability COPD Hyperthyroidism Seizures HLD GERD Procedures: Full mouth x-rays [07318] Comprehensive Exam [59026] Dental prophylaxis [23504] Surgeon: Ap Scott DDS Rehabilitation Supervisor Surgeon: Hansel Burgess DDS; Beatris Thompson DMD [...] 2024 at 8:46:14 AM ----- ----- Provider: [id number] - Ap Adams DDS -- Clinic: [facility] ----- documented in this [id number] Surgery Surgical operation note* OP Note - Ap Scott DDS - 06/12/2024 7:07 AM EST Operative Note PHE OR 3 Parish Lopez 44 year old male Surgical Contact Serial Number: [id number] Preoperative Diagnosis: Pre-op Diagnosis * Caries [K02.9] Mental disability COPD Hyperthyroidism Seizures HLD GERD Postoperative Diagnosis: Mental Disability COPD Hyperthyroidism Seizures HLD GERD Procedures: Full mouth x-rays [26944] Comprehensive Exam [36303] Dental prophylaxis [68465] Surgeon: Ap Scott DDS Rehabilitation Supervisor Surgeon: Hansel Burgess DDS; Beatris Thompson DMD [...] procedure. Beatris Thompson DDS 06/12/2024 7:07 AM [facility] Work Phone: 1(656) 860-933502-24-2025 Miscellaneous Notes* OP Note - Ap Scott DDS - 06/12/2024 7:07 AM EST Operative Note PHE OR 3 Parish Lopez 44 year old male Surgical Contact Serial Number: [id number] Preoperative Diagnosis: Pre-op Diagnosis * Caries [K02.9] Mental disability COPD Hyperthyroidism Seizures HLD GERD Postoperative Diagnosis: Mental Disability COPD Hyperthyroidism Seizures HLD GERD Procedures: Full mouth x-rays [68900] Comprehensive Exam [58452] Dental prophylaxis [35087] Surgeon: Ap Scott DDS Rehabilitation Supervisor Surgeon: Hanesl Burgess DDS; Beatris Thompson DMD Anesthesia: General- [...] OR BLOOD COMPONENTS: The patient and/or legal territory service representative has been explained the need for transfusion of blood and/or blood components. The risks, benefits and alternatives have been explained. Questions concerning the transfusion of blood or blood components have been asked andanswered. The patient and/or legal territory service representative have REFUSED TO CONSENT transfusion of blood or blood products. PER PATIENT'S MOTHER * Brief Operative Note - Beatris Thompson DDS - 06/12/2024 7:03 AM EST Brief Operative Note PHE OR 3 Parish Lopez 44 year old male Surgical Contact Serial Number: [id number] Preoperative Diagnosis: Pre-op Diagnosis * Caries [K02.9] Mental disability COPD Hyperthyroidism Seizures HLD GERD Postoperative Diagnosis: Mental disability COPD Hyperthyroidism Seizures HLD GERD Procedures: Full mouth x-rays [90918] Comprehensive Exam [55463] Dental prophylaxis [63669] Surgeon(s): Surgeon(s): Ap Scott DDS Staff: Senior Cytogenetic Technologist Nurse: Felisha Moore Anesthesia: General Anesthesiologist: Blake [...] 06/12/2024 8:43 AM EST documented in this c[id number] Progress note* Blood Attestation - Blake Green MD - 06/12/2024 7:04 AM EST Blood Attestation: REFUSAL OF BLOOD OR BLOOD COMPONENTS: The patient and/or legal territory service representative has been explained the need for transfusion of blood and/or blood components. The risks, benefits and alternatives have been explained. Questions concerning the transfusion of blood or blood components have been asked andanswered. The patient and/or legal territory service representative have REFUSED TO CONSENT transfusion of blood or blood products. PER PATIENT'S MOTHER [facility] Work Phone: 1(754) 101-530802-24-2025 Surgery Postoperative evaluation and management note* Brief Operative Note - Beatris Thompson DDS - 06/12/2024 7:03 AM EST Brief Operative Note PHE OR 3 Parish Lopez 44 year old male Surgical Contact Serial Number: [id number] Preoperative Diagnosis: Pre-op Diagnosis * Caries [K02.9] Mental disability COPD Hyperthyroidism Seizures HLD GERD Postoperative Diagnosis: Mental disability COPD Hyperthyroidism Seizures HLD GERD Procedures: Full mouth x-rays [35370] Comprehensive Exam [09655] Dental prophylaxis [91908] Surgeon(s): Surgeon(s): Ap Scott DDS Staff: Senior Cytogenetic Technologist Nurse: Felisha Moore Anesthesia: General Anesthesiologist: Blake [...] Scott DDS at 06/12/2024 8:43 AM EST WahckUpavkc12-48-4737 Consult note* Beatris Thompson DDS - 06/12/2024 [...] Scott DDS at 06/12/2024 8:43 AM EST CuhaeRsxvxn71-14-9180 NoteSurgical Attestation: I have reviewed the patient's [...] 6:59 AMThe [facility]02-24-20[facility] Consult note* Beatris Thompson DDS - 06/12/2024 [...] 06/12/2024 8:43 AM EST documented in this a[id number] Telephone encounter Note* Telephone Encounter - Blessing Roy RN - 06/05/2024 7:21 AM EST Informed Consent for dental surgery & Anesthesia consent obtained and scanned into EPIC. Scheduled for surgery 06/12/2024. TyggzJgfxiz19-44-1521 Miscellaneous Notes* Telephone Encounter - Blessing Roy RN - 06/05/2024 7:21 AM EST Informed Consent for dental surgery & Anesthesia consent obtained and scanned into EPIC. Scheduled for surgery 06/12/2024. documented in this [id number] Note* Addendum Note - Boyd Harry MD - 06/02/2024 5:54 PM ESTAddended by: BOYD HARRY on: 06/02/2024 05:54 PM Modules accepted: Orders [id number] Miscellaneous Notes* Addendum Note - Boyd Harry MD - 06/02/2024 5:54 PM ESTAddended by: BOYD HARRY on: 06/02/2024 05:54 PM Modules accepted: Orders documented in this [id number] NoteEXAMINATION: XR CHEST PA+LAT 2 VIEWS 06/02/2024 [...] images and agree with the resident's interpretation. 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 Contact the Pre-Surgical Evaluation department at [phone] or your surgeon's office with any additional questionsThe [facility]02-14-2025 Instructions* Patient Instructions* Сергей Alves MD - [...] procedure. Contact the Pre-Surgical Evaluation department at [phone] or your surgeon's office with any additional questions documented in this dwhyiocntJcyvnNcodrf29-05-5528 Evaluation note* PAT Appt H&P - Сергей Alves MD - 06/02/2024 1:34 PM EST Pre-Admission Testing Consultation Parish Lopez, [id number] 44 year old Male 06/02/2024 Consult placed [...] No STOP BANG: STOP-BANG Row Name 06/02/24 1336 History of sleep apnea? No Snoring No [...] Procedure: DENtal, xrays, examinations, 1 extraction; Surgeon: pA Scott DDS; Location: [facility]; Service: Dental Past Medical History and Review of Systems Pulmonary (+) COPD (-) sleep apnea Dental ROS (+) teeth problems missing Endo (+) hyperthyroidism Neuro/Psych (+) seizures Comment: intellectual disability Vagus nerve stimulator Cardiovascular (+) hyperlipidemia (-) hypertension, past WI, CAD, angina GI/Hepatic/Renal (+) GERD (-) renal [...] referring and communicating with other health home care aide (when not separately reported) - documenting clinical information in the electronic or other health record - independently interpreting results (not separately reported) and communicating results to the patient/family/caregiver - care coordination (not separately reported). Interviewer signature: Сергей Alves MD 1:35 PM 06/02/2024 Cosigned by Jonnie Aguilar MD at 06/02/2024 2:05 PM EST [id number] Miscellaneous Notes* PAT Appt H&P - Сергей Alves MD - 06/02/2024 1:34 PM EST Pre-Admission Testing Consultation Parish Lopez, [id number] 44 year old Male 06/02/2024 Consult placed [...] 1 extraction; Surgeon: Ap Scott DDS; Location: [facility]; Service: Dental Past Medical History and Review of Systems Pulmonary (+) COPD (-) sleep apnea Dental ROS (+) teeth problems missing Endo (+) hyperthyroidism Neuro/Psych (+) seizures Comment: intellectual disability Vagus nerve stimulator Cardiovascular (+) hyperlipidemia (-) hypertension, past WI, CAD, angina GI/Hepatic/Renal (+) GERD (-) renal [...] referring and communicating with other health home care aide (when not separately reported) - documenting clinical information in the electronic or other health record - independently interpreting results (not separately reported) and communicating results to the patient/family/caregiver - care coordination (not separately reported). Interviewer signature: Сергей Alves MD 1:35 PM 06/02/2024 Cosigned by Jonnie Aguilar MD at 06/02/2024 2:05 PM EST documented in this [id number] NotePre-Admission Testing Consultation Parish Lopez, [id number] 44 year old Male 06/02/2024 Consult placed to [facility] by Dr. Zamora due to significant PMH of Seizures, mental disability, hypothyroid undergoing dental restorations 06/12 [facility] Triage Risk Score Total Score: [...] No STOP BANG: STOP-BANG Row Name 06/02/24 1333 History of sleep apnea? No Snoring No [...] 1 extraction; Surgeon: Ap Scott DDS; Location: [facility]; Service: Dental Past Medical History and Review of Systems Pulmonary (+) COPD (-) sleep apnea Dental ROS (+) teeth problems missing Endo (+) hyperthyroidism Neuro/Psych (+) seizures Comment: intellectual disability Vagus nerve stimulator Cardiovascular (+) hyperlipidemia (-) hypertension, past WI, CAD, angina GI/Hepatic/Renal (+) GERD (-) renal [...] medically appropriate examinati (more content not included)...[facility] Rifzlw26-84-7046 History of Present illness Narrative* Rodriguez Kiser [...] oddly now 124 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 documented in this encounterResearch Psychiatric CenterGlfisrqdld61-29-2813 History of Present illness Narrative* Rodriguez Kiser [...] 06/20 full Model: AspireSR 106 Seriel #: [id number] Manufactured: 2020 Implant Date: 09/09/2021 Assessment/Plan Diagnoses [...] to clinic: 6 months. documented in this encounterResearch Psychiatric CenterXyeufesuyt80-77-1637 Evaluation note* Encounter Date Diagnosis Assessment Notes Treatment Notes Treatment Clinical Notes Dec, COPD (chronic obstructive pulmon gauri disease) (ICD-10 - J44.9) [facility] Other 08-30-2023 Hospital Discharge instructions Patient Education [...] provider. Document Revised: 08/14/2021 Document Reviewed: 08/14/2021 [employer] Patient Education 2022 [email or web address]. Follow Up Care 12/10/2021 11:51:23 With:Abner BYRNE, JUNIOR Hawk, URO Address: When: Unknown Comments:LENORA [facility] 03-07-2023 Evaluation note* Encounter Date Diagnosis Assessment Notes Treatment Notes Treatment Clinical Notes Jun, COPD (chronic obstructive pulmon gauri disease) (ICD-10 - J44.9) Continue with respiratory regemin, including VEST therapy, as you currently are doing. Call office with respiratory questions or concerns. [facility] Other 09-06-2022 Evaluation note* Encounter Date Diagnosis Assessment Notes Treatment Notes Treatment Clinical Notes Dec, COPD (chronic obstructive pulmon gauri disease) (ICD-10 - J44.9) Continue with VEST therapy twice a day. Ok to increase to TID if needed. [facility] Other 08-30-2022 Instructions* Patient Instructions* Mora Powell RDH - 12/16/2021 11:57 AM EDT Pt presented today for OR evaluation. Limited eval was completed. Pt's case is not urgent updated contact information and placed Pt on OR list. Step by step process for OR flyer was given to caregiver. Please wait for phone call from OR coordinator. documented in this [id number] History of Present illness Narrative* Mora Powell RDH - 12/16/2021 11:42 AM EDT ----- Wednesday, December 16, 2021 at 12:03:50 PM ----- ----- Provider: [id number] - Mora Powell Hygienist -- Clinic: [place] ----- [facility], Pt is ready for tx. Pt presented for dental evaluation for future OR. Caregiver in the room. Patient is non-verbal. Severe intellectual disability, seizure disorder Caregiver stated patient is not pain and no complaining. Radiograph taken today: no possible due to patient behavior Case requested for OR. Guardian mother Katia Lopez. [phone]. [facility] [phone] [id number] [id number] ( [facility] [place] AVS printed and handed flyer for step by step instruction of OR process to Caregiver exam By: Elliott Ham [facility] [place]. OR ----- Signed on Thursday, December 16, 2021 at 12:18:18 PM ----- ----- Provider: [id number] - Ap Adams DDS -- Clinic: [place] ----- documented in this [id number] Hospital Discharge instructions Patient Education 12/10/2021 11:47:35 [...] nerve stimulation). For women, using a medical reimbursement specialist to prevent urine leaks. This is [...] right after experiencing incontinence. General instructions Take cous-woz-ddidjtf and prescription medicines only as told by [...] 05/13/2005 Document Revised: 04/15/2018 Document Reviewed: 07/15/2017 Platial Patient Education 2020 [employer] Follow Up Care 10/22/2021 11:38:20 With:Abner BYRNE, JUNIOR Hawk, URO Address: When:1 year Comments:W/ renal US [facility] 07-06-2022 Hospital Discharge instructions [...] nerve stimulation). For women, using a medical reimbursement specialist to prevent urine leaks. This is [...] right after experiencing incontinence. General instructions Take bhma-xyy-dsbbdka and prescription medicines only as told by [...] 05/13/2005 Document Revised: 04/15/2018 Document Reviewed: 07/15/2017 Platial Patient Education 2020 [email or web address]. 10/22/2021 11:42:30 Renal Mass Renal Mass A [...] provider gives to you. In general: Take xugd-czi-pkxwhmy and prescription medicines only as told by [...] 10/31/2014 Document Revised: 05/12/2018 Document Reviewed: 05/12/2018 Platial Patient Education 2020 [email or web address]. Follow Up Care 09/22/2021 14:10:46 With:Arline Levine MD, URL, URO Address: When:1 month [facility] evaluation + Plan note Future Appointments Appointment Date:11/19/2021 10:00:00 AM Scheduled Provider:Arline Levine MD Location:[facility] Appointment Type:URO Office Visit [facility] evaluation + Plan note Future Appointments Appointment Date:12/16/2022 10:15:00 AM Scheduled Provider:Arline Levine MD Location:[facility] Appointment Type:URO Office Visit [facility] evalqncxxy note* Diagnosis Onset Date Resolution Status COPD (chronic obstructive pulmonary dise ase) acuteSevere intellectual disabilityacute [facility] Work Phone: Evaluation note* Diagnosis Generalized [...] acuteMarch 2024 9:09amSevere intellectual disabilityacuteMarch 2024 9:09am [facility] Work Phone: Evaluation note* Diagnosis Preop [...] in this [facility] note[facility] assessment information availableBl[facility] Work Phone: History general Narrative - Reported* Type Description Date Medical History Mental retardation Medical HistorySeizure DisorderMedical HistoryWilliams SyndromeMedical History ADDMedical HistoryHypothyroidismMedical HistorySpastic QuadraparesisMedical HistoryOsteoporosisMedical HistoryWilliams-Beuren syndromeMedical HistorySeizure disorderMedical HistorySeizure disorderMedical HistoryCOPDSurgical HistoryVNS [id number] [facility] Other Hospital course Narrative No data available for this section [facility] Hospital Discharge instructions No data available for this section [facility] No data available for this section [facility] reason for referral (narrative)No reason for referral information availableBlanchard [facility] Work Phone: Reason for visit Narrative* Diagnostic X-Ray (Routine) - ClosedSpecialtyDiagnoses / ProceduresReferred By ContactReferred To Contact Radiology Diagnoses Pre-op evaluation Procedures XR CHEST PA+LAT 2 VIEWS Boyd Harry MD [address] [place] [address] Phone: tel: fax: [facility] DI[facility]IOLOGY [address] [place] [address] [place] [address] Phone: tel: Referral IDStatusReasonStart DateExpiration DateVisits RequestedVisits [id number] [facility] Narrative* Auth/Cert (Routine)SpecialtyDiagnoses / ProceduresReferred By ContactReferred To ContactAmbulatory Surgery Diagnoses Caries Caries [K02.9] Procedures UNLISTED PROCEDURE, DENTOALVEOLAR STRUCTURES ANESTHESIA, INTRAORAL PROC, W/BX; NOS DENTAL RESTORATIONS Ap Scott, DDS [address] [place] [address] Phone: tel: fax: [employer] [address] [place] [address] Phone: tel: Referral IDStatusReasonStart DateExpiration DateVisits RequestedVisits [id number] [facility] [employer] Summary Purpose Family History Relationship Condition Age [...] content) Team MemberRelationshipSpecialtyStart DateEnd Date Abundio Mares, [facility] [address] [place] [address] LsppxfmdAdepolelo13/6/20Team MemberRelationshipSpecialtyStart DateEnd Date Abundio Mares [facility] [address] [place] [address] WbrqudjbJdjgjskrk41/6/20 Team Status: Active Member Role Status Dates Fam Acevedo DO Primary Care Provider Active Team Status: Inactive Member Role Status Dates Fam Acevedo DO Primary Care Provider Active Start: July 06, 2023 End: July 06, 2023HeJEOVANY De La CruzBCAttending ProviderActiveStart: July 06, 2023 End: July 06, 2023Team MemberRelationshipSpecialtyStart DateEnd Date Abundio Mares, [facility] [address] [place], [place] [id number] PacceipvZfanitunu69/6/20 Team Status: Inactive Member Role Status Dates Fam Acevedo DO Primary Care Provider Active Start: January 11, 2024 End: January 11, 2024HeJEOVANY De La Cruz-BCAttending ProviderActiveStart: January 11, 2024 End: January 11, 2024Flat RocksActiveStart: January 11, 2024 End: January 11, 2024Team MemberRelationshipSpecialtyStart DateEnd Date Philipplocated, Faye Fermin MD [address] [place], [place] [id number] PCP - General09/23/22 Fam Acevedo MD [address] [place] [address] Referring PhysicianOrthopaedic Surgery09/23/22Team MemberRelationshipSpecialty Start DateEnd Date Unallocated, Timothys MD Zander [address] [place] [address] PCP - General09/23/22 Fam Acevedo MD [address] [place] [address] Referring PhysicianOrthopaedic Surgery09/23/22Team MemberRelationshipSpecialty Start DateEnd Date Abundio Mares [facility] [address] [place] [address] YzjkxgpxTjeipblnt51/6/20Team MemberRelationshipSpecialtyStart DateEnd Date Abundio Mares[address] [address] NywqurcuCnolqukmt41/6/20Team MemberRelationshipSpecialtyStart DateEnd Date Unallocated, Faye Fermin MD [address] [place] [address] [facility] - General09/23/22 Fam Acevedo MD [address] [place], [place] [address] Referring PhysicianOrthmoab regional hospitaledic Surgery09/23/22 Team Status: Inactive Member Role Status Dates Fam Acevedo DO Primary Care Provider Active Start: July 11, 2024 End: July 11, 2024Heradha Castaneda APRN ACNP-BCAttending ProviderActiveStart: July 11, 2024 End: July 11, 2024Team MemberRelationshipSpecialtyStart DateEnd Date Abundio Mares [address] [address] IcwkigqbRgemrtkls36/6/20Team MemberRelationshipSpecialtyStart DateEnd Date Abundio Mares [address] [address] EydschtfIweygptlu12/6/20Team MemberRelationshipSpecialtyStart DateEnd Date Abundio Mares [address] [address] XlbkcvmrYgxyoiklw02/6/20Team MemberRelationshipSpecialtyStart DateEnd Date Abundio Mares [address] [address] BzcgwjaaViesnayrw56/6/20Team MemberRelationshipSpecialtyStart DateEnd Date Abundio Mares [address] [address] DpswsonlOqmdiajun82/6/20Team MemberRelationshipSpecialtyStart DateEnd Date Abundio Mares [address] [address] UdcvuebxEkgmsjahq05/6/20 Team Status: Inactive Member Role Status Dates [...] ed section and content) ReasonCommentsSeizuresReasonCommentsPre-surgical EvaluationReasonOnset Date OfdansajKVE17/17/2025Informed Consent & Anesthesia consent obtained (unrecognized sect ion and content) No Status Records FoundNo Status Records FoundNo Status Records FoundNo Status Records Found INFORMATION SOURCE (unrecogn ized section and content) DATE CREATED AUTHOR 08/05/2022 [facility] DATE CREATED AUTHOR AUTHOR'S ORGANIZ ATION 01/26/2023 [facility] DATE CREATED AUTHOR AUTHOR'S ORGANIZ ATION 06/02/2024 [facility] DATE CREATED AUTHOR AUTHOR'S ORGANIZ ATION 12/18/2024 [employer] Goals (unrecognized section and content) Goals [...] BE BASED ON THE PRIMARY CLINICAL RECORDS. [employer] [facility]. provides no warranty or guarantee of the accuracy or completeness of information in this document.
[2025-04-16 18:52] LABS: Hematocrit 37.2 % (42.0-54.0); Hemoglobin 12.3 g/dL (14.0-18.0); Immature Granulocytes Abs Auto 0.01 10^3/uL (0.00-0.03); Immature Granulocytes Pct Auto 0.1 % (0.0-0.5); Lymphocytes Absolute Auto 3.1 10^3/uL (1.2-3.8); Mean Corpuscular HGB Conc 33.1 g/dL (29.9-35.2); Mean Corpuscular Hemoglobin 31.2 pg (25.9-34.0); Mean Corpuscular Volume 94.4 fL (80.0-94.0); Platelet Count 315 10^3/uL (150-450); Red Blood Count 3.94 10^6/uL (4.70-6.10); White Blood Count 7.5 10^3/uL (4.0-11.0)
[2025-04-16 19:00] LABS: Anion Gap 13.2; Blood Urea Nitrogen 8.0 mg/dL (7.0-18.0); Calcium 9.0 mg/dL (8.5-10.1); Carbon Dioxide 28.9 mmol/L (21.0-32.0); Chloride 106 mmol/L (98-107); Estimated GFR (African America >60 (>=60 mL/min/1.73m^2); Estimated GFR (Non-African Ame >60 (>=60 mL/min/1.73m^2); Glucose 123 mg/dL (74-106); Potassium 4.1 mmol/L (3.5-5.1); Sodium 144 mmol/L (136-145)
--- NOTE | 2025-04-16 19:46 | ED.GENADUL1 ---
HPI HPI - General Adult General Chief complaint: Seizure Stated complaint: headache Time Seen by Provider: 04/16/25 18:25 Mode of arrival: walk-in History of Present Illness HPI narrative: This 45-year-old male was [facility] for evaluation of generalized weakness. He was signed out to me at shift change. In the emergency department he is awake and somewhat combative with the nursing staff. He does not appear to be in any respiratory distress. He has not had any coughing. Abdomen is soft and nontender. Routine labs were ordered and are reviewed. He has a normal white count and hemoglobin. Electrolytes are normal with a glucose of 126. Chest x-ray shows questionable infiltrates but it is a poor inspiratory film. I added on COVID-19 and influenza testing. COVID and influenza testing are both negative. Of the patient's caretakers did come to the emergency department to provide additional information. She states that several nights ago he sat up in his bed and was shaking his arms. He was not having a seizure at that time because he was awake and able to speak to her. In the emergency department she states he is at his baseline. He is playing with his phone and knows her name. At this point I think it is safe to send him home. He is alert, playing on his phone and interacting with the coating inspector at the bedside. He does not exhibit any sign of distress. I did discuss with her that the urine is the only thing we have not obtained but at his age it is unlikely that he has a UTI. Related Data Home Medications ?Medication ?Instructions ?Recorded ?Confirmed acetaminophen 325 mg capsule 650 mg PO Q4H PRN fever or pain 10/27/22 11/03/24 acetaminophen 650 mg rectal 650 mg OR Q4H PRN fever 10/27/22 11/03/24 suppository alendronate 70 mg tablet 70 mg PO .COMPLEX 10/27/22 05/11/23 atorvastatin 10 mg tablet 10 mg PO QPM 10/27/22 11/03/24 budesonide 0.5 mg/2 mL suspension 0.5 mg inhalation BID 10/27/22 11/03/24 for nebulization cholecalciferol (vitamin D3) 125 125 mcg PO DAILY 10/27/22 11/03/24 mcg (5,000 unit) capsule clobazam 10 mg tablet 10 mg PO BID 10/27/22 11/03/24 clonazepam 0.25 mg disintegrating 0.25 mg translingual Q12H PRN as 10/27/22 11/03/24 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 diazepam 5 mg-7.5 mg-10 mg rectal 10 mg OR .COMPLEX PRN if 3 or more 10/27/22 11/03/24 kit seizures in 2hrs docusate sodium 100 mg tablet (DOK) 200 mg PO DAILY 10/27/22 11/03/24 felbamate 400 mg tablet 400 mg PO TID 10/27/22 11/03/24 fenofibrate nanocrystallized 145 145 mg PO DAILY 10/27/22 11/03/24 mg tablet furosemide 20 mg tablet 20 mg PO DAILY 10/27/22 11/03/24 glycopyrrolate 1 mg tablet 1 mg PO BID 10/27/22 11/03/24 guaifenesin 400 mg tablet (Chest 400 mg PO BID 10/27/22 11/03/24 Congestion Relief) ipratropium 0.5 mg-albuterol 3 mg 3 ml inhalation TID 10/27/22 11/03/24 (2.5 mg base)/3 mL nebulization soln lactulose 10 gram/15 mL oral 60 g PO BID 10/27/22 11/03/24 solution levetiracetam 750 mg tablet 1,500 mg PO .MORNING 10/27/22 11/03/24 levothyroxine 150 mcg tablet 150 mcg PO DAILY 10/27/22 11/03/24 linaclotide 145 mcg capsule 145 mcg PO DAILY 10/27/22 11/03/24 (Linzess) loratadine 10 mg tablet 10 mg PO DAILY 10/27/22 11/03/24 magnesium oxide 400 mg (241.3 mg 400 mg PO DAILY 10/27/22 11/03/24 magnesium) tablet montelukast 10 mg tablet 10 mg PO QPM 10/27/22 11/03/24 omeprazole 40 mg capsule,delayed 40 mg PO DAILY 10/27/22 11/03/24 release oxcarbazepine 300 mg tablet 300 mg PO BID 10/27/22 11/03/24 oxcarbazepine 600 mg tablet 600 mg PO BID 10/27/22 11/03/24 polyethylene glycol 3350 17 17 g PO DAILY 10/27/22 11/03/24 gram/dose oral powder rifaximin 550 mg tablet (Xifaxan) 550 mg PO BID 10/27/22 11/03/24 sodium chloride-aloe vera nasal 2 spray intranasal TID dry nasal 10/27/22 11/03/24 spray (Ferney Saline Gel nasal spray) passages tamsulosin 0.4 mg capsule 0.4 mg PO DAILY 10/27/22 11/03/24 albuterol sulfate 2.5 mg/3 mL 2.5 mg inhalation Q6H PRN 02/11/23 11/03/24 (0.083 %) solution for nebulization shortness of breath artificial tears with lanolin eye 1 applic ophthalmic (eye) TID PRN 02/11/23 11/03/24 ointment (Ultra Fresh PM eye dry eye(s) ointment) erythromycin 5 mg/gram (0.5 %) eye 1 applic ophthalmic (eye) TID PRN 02/11/23 11/03/24 ointment eye irritation sennosides 8.6 mg capsule (senna) 17.2 mg PO BID PRN constipation 02/11/23 11/03/24 fluticasone propionate 50 2 spray intranasal DAILY 05/11/23 11/03/24 mcg/actuation nasal spray,suspension (24 Hour Allergy Relief) hydrocortisone 2.5 % topical cream 1 applic topical BID PRN FLARES 05/11/23 11/03/24 bisacodyl 10 mg rectal suppository 10 mg OR TID PRN constipation 11/03/24 11/03/24 denosumab 60 mg/mL subcutaneous 60 mg subcut .EVERY 6 MONTHS 11/03/24 11/03/24 syringe (Prolia) ketoconazole 2 % shampoo 1 applic topical DAILY PRN skin 11/03/24 11/03/24 irritation levetiracetam 500 mg tablet 2,000 mg PO BEDTIME 11/03/24 11/03/24 (Keppra) Allergies Allergy/AdvReac Type Severity Reaction Status Date / Time amoxicillin (From Augmentin) Allergy Unknown Verified 11/03/24 06:45 clavulanic acid (From Allergy Unknown Verified 11/03/24 06:45 Augmentin) Pertussis Vaccines Allergy Unknown Verified 11/03/24 06:45 phenytoin (From Dilantin) Allergy Unknown Verified 11/03/24 06:45 promethazine (From Phenergan) Allergy Unknown Verified 11/03/24 06:45 Opioid HPI Opioid Management Most Recent Opioid Data: Last Pain Scale 0 02/13/23, 14:02 PFSH [facility] Medical History (Updated 04/16/25 @ 20:41 by Blessing Briggs MD) Seizure disorder ?G40.909 - Epilepsy, unspecified, not intractable, without status epilepticus (ICD-10) Hepatic encephalopathy ?K76.82 - Hepatic encephalopathy (ICD-10) COPD (chronic obstructive pulmonary disease) ?J44.9 - Chronic obstructive pulmonary disease, unspecified (ICD-10) Intellectual disability ?F79 - Unspecified intellectual disabilities (ICD-10) 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) Pneumonia ?J18.9 - Pneumonia, unspecified organism (ICD-10) Fever ?R50.9 - Fever, unspecified (ICD-10) Fall ?W19.XXXA - Unspecified fall, initial encounter (ICD-10) GERD (gastroesophageal reflux disease) ?K21.9 - Gastro-esophageal reflux disease without esophagitis (ICD-10) Hyperlipidemia ?E78.5 - Hyperlipidemia, unspecified (ICD-10) BPH (benign prostatic hyperplasia) ?N40.0 - Benign prostatic hyperplasia without lower urinary tract symptoms (ICD-10) Small intestinal bacterial overgrowth ?K63.8219 - Small intestinal bacterial overgrowth, unspecified (ICD-10) 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 - Quadriplegia, unspecified (ICD-10) Excessive salivation ?K11.7 - Disturbances of salivary secretion (ICD-10) Osteoporosis ?M81.0 - Age-related osteoporosis without current pathological fracture (ICD-10) ADHD ?F90.9 - Attention-deficit hyperactivity disorder, unspecified type (ICD-10) Hypothyroidism ?E03.9 - Hypothyroidism, unspecified (ICD-10) 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 Smoking status: Never smoker Second hand tobacco smoke exposure: No Non-prescribed substance use: denies use Previous occupational history: disable Known occupational exposures/hazards: No Highest level of school completed/degree received: never attended/kindergarten only Do you want help with school or training: No Are you now , , , , never or living with a partner: don't know Life stressors: unknown source of stress Due to disability, difficulty making decisions: No Do you think of yourself as: don't know Gender Identity: other Gender Identity Comment: unable to communicate Exam Constitutional Vital Signs, click to edit/add: Last Vital Signs Temp 97.1 F L 04/16/25 18:16 Pulse 85 04/16/25 18:16 Resp 14 04/16/25 18:16 BP 148/96 H 04/16/25 18:16 Pulse Ox 95 04/16/25 18:16 O2 Del Method Room Air 04/16/25 18:16 Course Vital Signs Vital signs: Vital Signs Temperature 97.1 F L 04/16/25 18:16 Pulse Rate 85 04/16/25 18:16 Respiratory Rate 14 04/16/25 18:16 Blood Pressure 148/96 H 04/16/25 18:16 Pulse Oximetry 95 04/16/25 18:16 Oxygen Delivery Method Room Air 04/16/25 18:16 Temperature 97.1 F L 04/16/25 18:16 Pulse Rate 85 04/16/25 18:16 Respiratory Rate 14 04/16/25 18:16 Blood Pressure 148/96 H 04/16/25 18:16 Pulse Oximetry 95 04/16/25 18:16 Oxygen Delivery Method Room Air 04/16/25 18:16 Medical Decision Making Lab Data Lab results reviewed: Yes I reviewed the patient's lab results Labs: Lab Results 04/16/25 04/16/25 Range/Units 18:40 19:36 WBC 7.5 (4.0-11.0) 10^3/uL RBC 3.94 L (4.70-6.10) 10^6/uL Hgb 12.3 L (14.0-18.0) g/dL Hct 37.2 L (42.0-54.0) % MCV 94.4 H (80.0-94.0) fL MCH 31.2 (25.9-34.0) pg MCHC 33.1 (29.9-35.2) g/dL RDW 13.4 (11.0-15.0) % Plt Count 315 (150-450) 10^3/uL MPV 9.8 (9.5-13.5) fL Neut % (Auto) 47.2 (43.0-75.0) % Lymph % (Auto) 41.4 (20.5-60.0) % Weber % (Auto) 9.4 (1.7-12.0) % Eos % (Auto) 1.5 (0.9-7.0) % Baso % (Auto) 0.4 (0.2-2.0) % Neut # (Auto) 3.5 (1.4-6.5) 10^3/uL Lymph # (Auto) 3.1 (1.2-3.8) 10^3/uL Weber # (Auto) 0.7 (0.3-0.8) 10^3/uL Eos # (Auto) 0.1 (0.0-0.7) 10^3/uL Baso # (Auto) 0.0 (0.0-0.1) 10^3/uL Abs Immat Gran (auto) 0.01 (0.00-0.03) 10^3/uL Imm/Tot Granulo (auto) 0.1 (0.0-0.5) % Sodium 144 (136-145) mmol/L Potassium 4.1 (3.5-5.1) mmol/L Chloride 106 (98-107) mmol/L Carbon Dioxide 28.9 (21.0-32.0) mmol/L Anion Gap 13.2 BUN 8.0 (7.0-18.0) mg/dL Creatinine 0.66 L (0.70-1.30) mg/dL Est GFR ( Amer) >60 (>=60 mL/min/1.73m^2) Est GFR (Non-Af Amer) >60 (>=60 mL/min/1.73m^2) BUN/Creatinine Ratio 12.1 Glucose 123 H (74-106) mg/dL Calcium 9.0 (8.5-10.1) mg/dL Influenza Type A Ag Negative Influenza Type B Ag Negative SARS-CoV-2 Ag (CV2AG) Negative (NEGATIVE) Discharge Plan Discharge Chief Complaint: Seizure Clinical Impression: Encounter for well adult exam without abnormal findings Patient Disposition: Home, Self-Care Time of Disposition Decision: 20:39 Condition: Good Prescriptions / Home Meds: No Action alendronate 70 mg tablet 70 mg PO .COMPLEX Rx Instructions: 70 mg orally Every ; atorvastatin 10 mg tablet 10 mg PO QPM budesonide 0.5 mg/2 mL suspension for nebulization 0.5 mg inhalation BID clobazam 10 mg tablet 10 mg PO BID Rx Instructions: 799,1999 docusate sodium [DOK] 100 mg tablet 200 mg PO DAILY felbamate 400 mg tablet 400 mg PO TID Rx Instructions: 0800,1199,1999 fenofibrate nanocrystallized 145 mg tablet 145 mg PO DAILY furosemide 20 mg tablet 20 mg PO DAILY glycopyrrolate 1 mg tablet 1 mg PO BID Rx Instructions: 799, 1999 guaifenesin [Chest Congestion Relief] 400 mg tablet 400 mg PO BID Rx Instructions: 799,1999 ipratropium-albuterol 0.5 mg-3 mg(2.5 mg base)/3 mL solution for nebulization 3 ml INHALATION TID lactulose 10 gram/15 mL solution 60 g PO BID Rx Instructions: 0800,1199,1999 levetiracetam 750 mg tablet 1,500 mg PO .MORNING levothyroxine 150 mcg tablet 150 mcg PO DAILY Linzess 145 mcg capsule 145 mcg PO DAILY loratadine 10 mg tablet 10 mg PO DAILY magnesium oxide 400 mg (241.3 mg magnesium) tablet 400 mg PO DAILY montelukast 10 mg tablet 10 mg PO QPM omeprazole 40 mg capsule,delayed release(DR/EC) 40 mg PO DAILY oxcarbazepine 300 mg tablet 300 mg PO BID oxcarbazepine 600 mg tablet 600 mg PO BID polyethylene glycol 3350 17 gram/dose powder 17 g PO DAILY tamsulosin 0.4 mg capsule 0.4 mg PO DAILY cholecalciferol (vitamin D3) 125 mcg (5,000 unit) capsule 125 mcg PO DAILY Xifaxan 550 mg tablet 550 mg PO BID Ferney Saline Gel [place],Non-Aerosol 2 spray intranasal TID Rx Instructions: 0800,1600,2000 acetaminophen 325 mg capsule 650 mg PO Q4H PRN (Reason: fever or pain) acetaminophen 650 mg suppository 650 mg OR Q4H PRN (Reason: fever) clonazepam 0.25 mg tablet,disintegrating 0.25 mg translingual Q12H PRN (Reason: as needed for cluster of 5 seizures) diazepam 5-7.5-10 mg kit 10 mg OR .COMPLEX PRN (Reason: if 3 or more seizures in 2hrs) Rx Instructions: 10 mg rectally PRN; 10 mg rectally may repeat in 2hrs as needed PRN; albuterol sulfate 2.5 mg /3 mL (0.083 %) solution for nebulization 2.5 mg inhalation Q6H PRN (Reason: shortness of breath) Ultra Fresh PM Ointment 1 applic ophthalmic (eye) TID PRN (Reason: dry eye(s)) erythromycin 5 mg/gram (0.5 %) ointment 1 applic ophthalmic (eye) TID PRN (Reason: eye irritation) senna 8.6 mg capsule 17.2 mg PO BID PRN (Reason: constipation) Rx Instructions: IF NO BM IN 4 DAYS fluticasone propionate [24 Hour Allergy Relief] 50 mcg/actuation spray,suspension 2 spray intranasal DAILY Rx Instructions: administer into each nostril hydrocortisone 2.5 % cream 1 applic TOPICAL BID PRN (Reason: FLARES) Rx Instructions: NEEDED FOR FLARES levetiracetam [Keppra] 500 mg tablet 2,000 mg PO BEDTIME Prolia 60 mg/mL syringe 60 mg subcut .EVERY 6 MONTHS bisacodyl 10 mg suppository 10 mg OR TID PRN (Reason: constipation) ketoconazole 2 % shampoo 1 applic topical DAILY PRN (Reason: skin irritation) Print Language: Sami Additional Instructions: Encourage copious p.o. intake of fluids, use Tylenol and Motrin as needed for fever, return to the emergency department for worsening symptoms or any concerns. Please continue current medications and follow-up closely with Parish's family physician. Referrals: ERIKA VENTURA DO [Primary Care Provider, Family Practice] - 1 week
[2025-04-16 19:58] LABS: SARS-CoV-2 Ag NEGATIVE (NEGATIVE)
== END 2025-04-16 21:48 | disposition home or self-care (01) ==
PROVIDERS: Emergency Medicine; Emergency Provider Emergency Medicine; PCP Family Medicine
DX: Z03.89 Encounter for observation for other suspected diseases and conditions ruled out (principal)
CPT/HCPCS: 36415; 71045; 80048; 81001; 85025; 87804; 87811; 93005; 99283